=== PATIENT | male | born 1950 | race Caucasian/White ===

== ENCOUNTER 2018-01-28 14:34 | Inpatient (IN) | payer MEDICARE, SELFPAY ==
[2018-01-28] VITALS (20 sets, daily range): BP systolic 135–163; BP diastolic 48–112; PULSE 70–90; RESP 12–60; TEMP 36.6–37; O2SAT 90–100; BMI 34.0; BMI 32.2; BMI 32.3
--- NOTE | 2018-01-28 14:57 | EKG12_ITS ---
Test Reason : SOB Blood Pressure : / mmHG Vent. Rate : 092 BPM Atrial Rate : 092 BPM P-R Int : 216 ms QRS Dur : 098 ms QT Int : 360 ms P-R-T Axes : 035 080 020 degrees QTc Int : 445 ms Sinus rhythm with 1st degree A-V block with occasional Premature ventricular complexes Otherwise normal ECG Confirmed by VIKY MONTENEGRO, JOS ([id number]), editor book SHIRA HURD ([id number]) on 01/31/2018 2:25:31 PM Referred By: Confirmed By:JOS SALMON MD
--- NOTE | 2018-01-28 15:02 | RAD_ITS ---
STUDY: X-RAY CHEST REASON FOR EXAM: Male, 67 years old. Respiratory failure TECHNIQUE: Single x 2 AP portable view of the chest. The right part of the chest is partially out of the field of view. COMPARISON: December 29, 2010 FINDINGS: Since prior, there is partial visualization of blunting of the right costophrenic angle. The right costophrenic angle is partially out of the field of view. 01/28/2018 pattern of increased interstitial markings blunting of the costophrenic angles. Sternal cerclage wires are present from a prior sternotomy. Normal mediastinum and justyn. Normal visualized pulmonary arteries. There is atherosclerotic calcification of the aortic arch with tortuosity. There are diffuse degenerative changes of the visualized thoracic spine. Normal visualized ribs, clavicles, and shoulders. There is no demonstrated abnormality of the visualized soft tissue structures of the upper abdomen. RAD/Chest 1 View (Portable) IMPRESSION: Limited study. Findings suspicious for pulmonary edema bilateral effusions. Recommend repeating the study with improved technique when appropriate. Electronically Signed: Stephanie Martínez MD at 16:40 EDT Tel , Service support ,
[2018-01-28] MEDS: MethylPREDNISolone 125 MG/2 ML Vial IV (15:13)
[2018-01-28 15:21] LABS: Absolute Lymphocyte Count 4.16 X10^3/ul (0.83-4.51); Basophil# 0.01 X10^3/uL; Differential Indicated SCAN CRITERIA MET; Eosinophil# 0.16 X10^3/uL; Eosinophils% 0.6 % (0-5); Hematocrit 31.5 % (40-54); Hemoglobin 9.1 g/dl (13.0-16.5); Lymphocyte # 4.16 X10^3/ul (4.0); Lymphocyte % 14.3 % (19-41); Mean Corp Hgb Conc 28.9 g/gl (32-36); Mean Corpuscular Hgb 25.1 pg (27.0-32.0); Mean Platelet Vol. 10.4 fl (6.2-12.0); Monocyte# 3.61 X10^3/uL; Monocyte% 12.4 % (0-10); Neutrophil # 21.01 X10^3/uL (2.7-7.7); Neutrophil % 72.3 % (47-70); POSITIVE COUNT NO; POSITIVE DIFFERENTIAL YES; POSITIVE MORPHOLOGY YES; Platelet Count 253 K/mm3 (150-450); RBC Distribution Width CV 22.7 % (11.6-14.6); RBC Distribution Width SD 67.5 fl (35.1-43.9); Red Blood Count 3.62 M/mm3 (4.6-6.2); White Blood Count 29.1 K/mm3 (4.4-11.0)
[2018-01-28 15:23] LABS: Partial Thromboplast Time 21.3 Seconds (24.1-36.2); Prothrombin Time (Protime)PT. 12.7 SECONDS (11.7-14.9)
[2018-01-28] MEDS: Albuterol 2.5 MG/3 ML VIAL.NEB. INHALATION ×3 (15:25)
[2018-01-28] MEDS: Ipratropium/Albuterol Sulfate 3 ML AMPUL.NEB INHALATION ×3 (15:25→22:54)
[2018-01-28 15:39] LABS: AST(SGOT) 30 U/L (15-37); Alanine Aminotransfer ALT/SGPT 47 U/L (16-61); Albumin, Serum 3.4 g/dL (3.2-5.0); Alkaline Phosphatase 74 U/L (45-117); Anion Gap 9 (5-15); BUN 78 mg/dL (7-18); BUN/Creat Ratio 28.2 RATIO (10-20); Calcium,Total 8.4 mg/dL (8.5-10.1); Chloride 101 mmol/L (98-107); Creatinine, Serum 2.77 mg/dL (0.70-1.30); EST Glomerular Filtration Rate 25 mL/min (>60); Est Glom Filt Rate - Afr Amer 30 mL/min (>60); Estimated Creatinine Clearance 24.53 ml/min; Globulin 3.5 g/dL (2.2-4.2); Glucose 231 mg/dL (74-106); Potassium 4.2 mmol/L (3.5-5.1); Protein, Total 6.9 g/dL (6.4-8.2); Sodium Level 136 mmol/L (136-145)
[2018-01-28] MEDS: Furosemide 40 MG/4 ML Vial IV (15:43)
[2018-01-28 15:44] LABS: Lactic Acid 2.5 mmol/L (0.4-2.0)
[2018-01-28] MEDS: Nitroglycerin Infusion 250 ML 3 MG IV (15:54)
[2018-01-28 16:01] LABS: Allen Test NEG; Base Excess 3 mmol/L (-2 to +2); Bicarbonate 27.7 mmol/L (22-26); Blood Gas Specimen Type ART; EPAP 8; FI02 50; IPAP 12; PO2 151 mmHG (75-100); RR 14; SITE R Radial; SO2 99 % (95-99); Time Given 1554; Total Carbon Dioxide 29 mmol/L; pH 7.43 (7.35-7.45)
--- NOTE | 2018-01-28 16:16 | ED.DCSUM_ITS ---
- ER Visit Summary Date of Service: 01/28/18 Chief Complaint: Shortness of breath History of Present Illness: The patient is a 67 M who presents with prompt onset of shortness of breath of several hours prior to presentation. He states he cannot breathe. He has never been this bad. He nods to history of COPD, congestive heart failure, hypertension and high cholesterol. He acknowledges he has history of coronary disease status post bypass surgery. He denies any chest pain. He denies increased swelling of his legs. He denies increased orthopnea and denies PND. He does report a cough. He denies fever, chills night sweats. He denies any visual, ocular auditory symptoms. He denies abdominal pain, nausea, vomiting or diarrhea. He denies dysuria, frequency, urgency or hematuria. He denies myalgias arthralgias or back pain. He denies rash or abscess. He denies headache or generalized weakness. History he denies polyuria, polydipsia or polyphagia. He denies bruising easily. Denies angioedema or urticaria. Patient's history is limited to the fact that he is in respiratory distress in a tripod position. Physical Examination: Blood pressure 163/112, temperature 98.6, heart rate 87, respiratory 30 and pulse ox 91% on mask. Nurse protocol was initiated and he was administered a DuoNeb. Head is atraumatic nor cephalic. He has a cushingoid appearance. Unable to visualize oropharynx secondary to fact he is on a mask which he is dependent on at this time because otherwise he is hypoxic. Trachea is midline. There is no stridor. There is no cervical lymphadenopathy. Heart is regular difficult to hear heart tones or murmurs secondary to respiratory sounds. He has rhonchi and wheezing heard throughout. There is retractions. He is diaphoretic. Abdomen is prominent soft nontender with diminished bowel sounds. He has bilateral 3-4+ pitting edema of the lower extremities. Unable to palpate distal pulses secondary to the amount of edema. He has venous stasis dermatitis noted. He is alert and oriented. Neuro exam was limited secondary to acuity of his respiratory distress. Test Results: EKG interpreted by me as a sinus rhythm with first-degree AV block and PVCs. Rate 92. Chest x-ray reveals cardiomegaly and CHF on a single portable view. White count is 29.1 thousand with an H&H 9.1 and 31.5. There are 72% segs and no bands. Electrolyte panels marked for BUN and creatinine of 78 and 2.77. Coags normal. Troponin is slightly elevated 0.07 and lactate elevated 2.5. It is my opinion that the lactate is elevated secondary to his hypoxia and respiratory distress. This is not secondary to sepsis. Believe his white count is secondary to stress from his respiratory distress. Cultures were obtained, however. Emergency Department Course and Treatment: With abrupt onset shortness of breath with history of COPD and CHF need to consider pulmonary embolus, exacerbation COPD, pulmonary edema. He was placed on BiPAP and a blood gas was obtained. Blood gas revealed no acid-base disturbance. There is a significant AA gradient. In light of chest x-ray findings he was given Lasix 40 mg and placed on a nitro drip for preload reduction. Treatment Plan: PCU stepdown Disposition: Full admission Impression: 1. Respiratory failure with hypoxia 2. Pulmonary edema 3. Elevated troponin probably secondary to congestive heart failure 4. Anemia 5. Renal failure 6. Lactic acidosis This note was generated with [employer] dictation software. It may contain incorrect words, spelling, and punctuation that were not noted in review of the chart prior to signing ED Disposition - Plan for ED Patient: Chief Complaint: Shortness of Breath Referrals: Tania Berger NP-C [Primary Care Provider] -
[2018-01-28 16:35] LABS: Anisocytosis 1+; Differential Comment SCANNED
--- NOTE | 2018-01-28 16:40 | HP.PCM_ITS ---
Problem List (1) Diastolic CHF Status: Acute Qualifiers: Heart failure chronicity: acute on chronic Qualified Code(s): I50.33 - Acute on chronic diastolic (congestive) heart failure (2) HLD (hyperlipidemia) Status: Chronic (3) HTN (hypertension) Status: Chronic (4) PAD (peripheral artery disease) Status: Chronic (5) CAD (coronary artery disease) Status: Chronic (6) COPD (chronic obstructive pulmonary disease) Status: Chronic (7) Tobacco dependence Status: Chronic (8) CKD (chronic kidney disease) Status: Chronic Qualifiers: Chronic kidney disease stage: stage 3 (moderate) Qualified Code(s): N18.3 - Chronic kidney disease, stage 3 (moderate) (9) Leukocytosis Status: Chronic (10) Anemia Status: Chronic (11) Respiratory failure with hypoxia Status: Acute (12) BPH (benign prostatic hyperplasia) Status: Chronic History of Present Illness Date of Admission: 01/28/18 Chief Complaint: Shortness of breath. The patient is a 67 year old M who presents to the emergency room with shortness of breath which began rather suddenly earlier today. Patient states he has chronic shortness of breath but today felt like he was struggling to breathe. Patient states he was recently admitted 1 week ago to [facility] where he was treated for pneumonia. Patient reports increase in lower extremity edema. He states he weighs himself daily and has not noted an increase in weight. Patient notes chronic cough with clear sputum production. Denies fever, chills. Denies chest pain. at bedside states that patient has had frequent admissions over the past year and a half due to congestive heart failure and respiratory failure. Patient follows with pizza chef in [place] and we have no prior records available at this time. Patient states he believes his ejection fraction is normal. He reports history of CAD status post CABG and stents. He states his most recent stent placement was in May 2017 at [facility] in [place]. He states he has had increase in lower extremity edema following failed attempt at stent placement for PAD. He is scheduled to follow-up with hematology for leukocytosis of unclear etiology. His other past medical history includes D, tobacco dependence, hypertension, hyperlipidemia, BPH, anemia, CKD. Past Medical History Past Medical History (Chronic Problems): Chronic Problems HLD (hyperlipidemia) (Chronic) HTN (hypertension) (Chronic) PAD (peripheral artery disease) (Chronic) CAD (coronary artery disease) (Chronic) COPD (chronic obstructive pulmonary disease) (Chronic) Tobacco dependence (Chronic) CKD (chronic kidney disease) (Chronic) Leukocytosis (Chronic) Anemia (Chronic) BPH (benign prostatic hyperplasia) (Chronic) Allergies irbesartan [From Avapro] Adverse Reaction (Verified 01/28/18 14:35) Other zolpidem [From Ambien] Adverse Reaction (Verified 01/28/18 14:35) Other Home Medications: Ambulatory Orders Medication Instructions Recorded Aspirin [Aspirin, Baby] 81 mg PO DAILY@0800 01/28/18 Bumetanide 2 mg PO BID 01/28/18 Cilostazol 100 mg PO BID 01/28/18 Clopidogrel Bisulfate [Plavix] 75 mg PO DAILY 01/28/18 Diltiazem HCl [Cartia Xt] 120 mg PO DAILY 01/28/18 Magnesium Oxide [Magnesium] 400 mg PO BID 01/28/18 Metoprolol Succinate 100 mg PO BID 01/28/18 Potassium Chloride [K-Dur] 20 meq PO 5X/DAY 01/28/18 Ropinirole HCl [Requip] 1 mg PO DAILY 01/28/18 Rosuvastatin Calcium [Crestor] 40 mg PO DAILY 01/28/18 Spironolactone 25 mg PO DAILY 01/28/18 Tamsulosin HCl [Flomax] 0.4 mg PO DAILY 01/28/18 hydrALAZINE [Apresoline] 25 mg PO BID 01/28/18 Surgical History: coronary bypass surgery, tonsillectomy Psychiatric History: No pertinent psych hx Lives: Spouse/ Significant Other Smoking Status: Current every day smoker - Half pack per day Tobacco Use: Cigarettes Alcohol: Rare Drugs: None - *Family History Maternal History Items: No pertinent history Paternal History Items: No pertinent history Review of Systems Constitutional: Denies: Chills, Fever, Weight Change HEENT: Denies: Head Aches, Sinus Congestion, Sinus Drainage Cardiovascular: Reports: Edema. Denies: Chest Pain, Palpitations, Syncope Respiratory: Reports: Cough, Shortness of Breath, Sputum production - Clear, Wheezing Gastrointestinal: Denies: Abdominal Pain, Constipation, Diarrhea, Nausea, Vomiting Genitourinary: Denies: Dysuria Musculoskeletal: Denies: Joint Pain, Joint Tenderness Skin: Denies: Rash, Wounds Neurological: Denies: Numbness, Tingling, Focal weakness Psychiatric: Denies: Anxiety, Depression, Homicidal Ideations, Suicidal Ideations Hematologic/ Lymphatic: Denies: Easy Bruising, Easy Bleeding VTE Information - Inpt Only VTE Present on Admission: No VTE Mechan Device Prophylaxis: None VTE Pharm Prophylaxis ordered?: Yes Patient Problems: Active and Suspected Problems Diastolic CHF (Acute) Respiratory failure with hypoxia (Acute) - Physical Exam General: Alert, Oriented x3, - - Moderate respiratory distress HEENT: Atraumatic, PERRLA, EOMI, Normocephalic Neck: Supple, No JVD, Negative Carotid Bruits Lungs: Diminished, Rhonchi Cardiovascular: Regular rate, Regular Rhythm, Normal S1, Normal S2, No murmurs Abdomen: Bowel Sounds Present, Soft, Non Tender, Non-Distended, Obese Extremities: No clubbing, No cyanosis, Edema - +3 bilateral lower extremities Skin: No rashes, No breakdown Musculoskeletal: No Tenderness to Palpation of Joints or Extremities Neurological: Cranial nerves II-XII grossly intact, Neuro grossly intact Psych/Mental Status: Normal Affect, Appropriate Vital Signs Temp Pulse Resp BP Pulse Ox 98.6 F 79 21 H 135/50 H 98 01/28/18 14:35 01/28/18 15:58 01/28/18 15:58 01/28/18 15:58 01/28/18 15:59 Oxygen Flow Rate (L/min) 4 Oxygen Delivery Method Bi-pap Weight: 98.5 kg Body Mass Index (BMI) 34.0 Laboratory Tests Past 24 Hrs 01/28/18 01/28/18 01/28/18 14:51 14:51 14:51 WBC 29.1 H RBC 3.62 L Hgb 9.1 L Hct 31.5 L MCV 87.0 MCH 25.1 L MCHC 28.9 L RDW 22.7 H RDW Differential 67.5 H Plt Count 253 MPV 10.4 Immature Gran % (Auto) 0.400 Neut % (Auto) 72.3 H Lymph % (Auto) 14.3 L [place] % (Auto) 12.4 H Eos % (Auto) 0.6 Baso % (Auto) 0.0 Absolute Neuts (auto) 21.0 H Absolute Lymphs (auto) 4.16 Total Counted Pending PT 12.7 INR 1.0 APTT 21.3 L Specimen Type Sample Site pH Bicarbonate Actual POC Total CO2 Base Excess O2 Saturation O2 % ABG pCO2 ABG pO2 Clay Test Respiration Rate O2 Delivery Device EPAP IPAP Blood Gas Notified Whom Blood Gas Notified Time Sodium 136 Potassium 4.2 Chloride 101 Carbon Dioxide 26.0 Anion Gap 9 BUN 78 H Creatinine 2.77 H Estim Creat Clear Calc 24.53 Est GFR (MDRD) Af Amer 30 L Est GFR (MDRD) Non-Af 25 L BUN/Creatinine Ratio 28.2 H Glucose 231 H Lactic Acid Calcium 8.4 L Total Bilirubin 0.50 AST 30 ALT 47 Alkaline Phosphatase 74 Troponin I 0.07 H Total Protein 6.9 Albumin 3.4 Globulin 3.5 Albumin/Globulin Ratio 1.0 01/28/18 01/28/18 14:51 15:54 WBC RBC Hgb Hct MCV MCH MCHC RDW RDW Differential Plt Count MPV Immature Gran % (Auto) Neut % (Auto) Lymph % (Auto) [place] % (Auto) Eos % (Auto) Baso % (Auto) Absolute Neuts (auto) Absolute Lymphs (auto) Total Counted PT INR APTT Specimen Type ART Sample Site R Radial pH 7.43 Bicarbonate Actual 27.7 H POC Total CO2 29 Base Excess 3 H O2 Saturation 99 O2 % 50 ABG pCO2 42.0 ABG pO2 151 H Clay Test NEG Respiration Rate 14 O2 Delivery Device Bi / C PAP EPAP 8 IPAP 12 Blood Gas Notified Whom ED MD Blood Gas Notified Time 1554 Sodium Potassium Chloride Carbon Dioxide Anion Gap BUN Creatinine Estim Creat Clear Calc Est GFR (MDRD) Af Amer Est GFR (MDRD) Non-Af BUN/Creatinine Ratio Glucose Lactic Acid 2.5 H Calcium Total Bilirubin AST ALT Alkaline Phosphatase Troponin I Total Protein Albumin Globulin Albumin/Globulin Ratio Assessment/Plan Active and Suspected Problems Diastolic CHF (Acute) Respiratory failure with hypoxia (Acute) 1. Acute hypoxic respiratory failure secondary to acute on chronic diastolic CHF-chest x-ray on admission consistent with CHF. Patient currently on BiPAP FiO2 40%. Patient received IV Lasix in ER and was started on nitro drip. Continue nitro gtt. IV lasix 60mg Q8hr. Strict I&O. Daily weight. Obtain records from outside facility. If echo not completed recently, repeat. Trend enzymes. John wraps bilateral lower extremities. Continue supplemental oxygen to maintain O2 at or above 90%. Repeat chest x-ray in a.m. 2. Leukocytosis-etiology unclear. Infectious etiology not suspected. Per patient this is somewhat chronic in nature and patient is to follow-up with radiologic electronic specialist. 3. Normocytic hypochromic anemia-patient reports recent blood transfusion, iron transfusion and erythropoietin injection during recent admission to [facility]. Monitor CBC. Obtain records to see if iron studies have been completed. 4. Indeterminate troponin-EKG without evidence of ischemia. Troponin 0.07. Trend enzymes. Suspect secondary to #1. 5. Lactic acidosis-lactic acid on admission 2.5. Do not suspect related to infection/sepsis. Repeat lactic acid. Suspect secondary to #1. 6. Chronic kidney disease, suspected stage IV-creatinine 2.7 on admission. Unknown what patient's baseline is. Trend BMP. Patient is following with nephrology as outpatient. 7. CAD-status post CABG/PCI. Most recent stents placed May 2017. Continue aspirin, statin, Plavix, beta-lesa. 8. Chronic COPD- no not suspect acute exacerbation. No audible wheezing noted on examination. Albuterol and DuoNeb aerosols. 9. PAD-status post attempted intervention which was unable to be performed per . Continue aspirin, statin, Plavix. 10. Hyperlipidemia-continue statin. 11. Hypertension-stable, continue home regimen including Cardizem, hydralazine, metoprolol. 12. Tobacco dependence-current half pack per day smoker. Encourage smoking cessation. Nicotine replacement patch if desired. 13. BPH-continue home Flomax regimen. DVT prophylaxis-heparin subcu. This patient was seen by SEUN Obregon under the supervision of Dr. Workman.
[2018-01-28 19:12] LABS: Reflex Lactate? Y
[2018-01-28 21:06] LABS: Lactic Acid 0.8 mmol/L (0.4-2.0)
[2018-01-28] MEDS: Furosemide 100 MG/10 ML Vial 60 MG IV (21:52)
[2018-01-28] MEDS: hydrALAZINE 25 MG Tablet PO (21:52)
[2018-01-28] MEDS: Metoprolol(XL)Succ 100 MG Tablet PO (21:52)
[2018-01-28] MEDS: Pramipexole Di-HCl 0.5 MG Tablet PO (21:52)
[2018-01-28] MEDS: Atorvastatin Calcium 80 MG Tablet PO (21:52)
[2018-01-28] MEDS: Heparin Injection (Vial) 5,000 UNIT/ML VIAL 5000 UNIT SC (21:52)
[2018-01-28] MEDS: Magnesium Oxide 400 MG Tablet PO (21:53)
[2018-01-29] VITALS (34 sets, daily range): BP systolic 122–154; BP diastolic 43–65; PULSE 65–95; RESP 12–21; TEMP 36.7–37.5; O2SAT 94–100
[2018-01-29] MEDS: Ipratropium/Albuterol Sulfate 3 ML AMPUL.NEB INHALATION ×6 (02:45→23:15)
[2018-01-29] MEDS: Heparin Injection (Vial) 5,000 UNIT/ML VIAL 5000 UNIT SC ×2 (05:16→14:18)
[2018-01-29] MEDS: Furosemide 100 MG/10 ML Vial 60 MG IV ×3 (05:16→22:06)
--- NOTE | 2018-01-29 05:55 | RAD_ITS ---
STUDY: X-RAY CHEST REASON FOR EXAM: Male, 67 years old. Cough TECHNIQUE: Single AP portable view of the chest. COMPARISON: January 28, 2018 chest x-ray FINDINGS: There is a hazy appearance on the bilateral lower lobes. There is blunting of the costophrenic angle. There are lesser overall thickened interstitial markings. There is no demonstrated pleural abnormality. Sternal cerclage wires are present from a prior sternotomy. Normal mediastinum and justyn. Normal visualized pulmonary arteries. Normal visualized aortic arch and descending thoracic aorta. There are diffuse degenerative changes of the visualized thoracic spine. Normal visualized ribs, clavicles, and shoulders. There is no demonstrated abnormality of the visualized soft tissue structures of the upper abdomen. RAD/Chest 1 View (Portable) IMPRESSION: Interval improvement in the interstitial edema. Findings suspicious for persistent layering effusions. There is right lower lobe atelectasis and a potential small infiltrate. Mild cardiomegaly. Electronically Signed: Stephanie Martínez MD at 8:36 EDT Tel , Service support ,
[2018-01-29 06:39] LABS: Hemoglobin 7.8 g/dl (13.0-16.5); Mean Corpuscular Hgb 26.1 pg (27.0-32.0); Mean Platelet Vol. 11.3 fl (6.2-12.0); Platelet Count 176 K/mm3 (150-450); RBC Distribution Width CV 21.9 % (11.6-14.6); RBC Distribution Width SD 65.1 fl (35.1-43.9); Red Blood Count 2.99 M/mm3 (4.6-6.2); White Blood Count 7.3 K/mm3 (4.4-11.0)
[2018-01-29 06:41] LABS: Scan Indicated on CBC? Y/N YES- FLAGS NOTED
[2018-01-29 07:10] LABS: Differential Comment SCAN
[2018-01-29 08:08] LABS: Anion Gap 12 (5-15); BUN 75 mg/dL (7-18); BUN/Creat Ratio 32.9 RATIO (10-20); Calcium,Total 8.2 mg/dL (8.5-10.1); Chloride 99 mmol/L (98-107); Creatinine, Serum 2.28 mg/dL (0.70-1.30); EST Glomerular Filtration Rate 31 mL/min (>60); Est Glom Filt Rate - Afr Amer 37 mL/min (>60); Glucose 365 mg/dL (74-106); Magnesium 2.8 mg/dL (1.6-2.6); Potassium 2.6 mmol/L (3.5-5.1); Sodium Level 138 mmol/L (136-145)
[2018-01-29] MEDS: Aspirin 81 MG TAB.CHEW PO (08:32)
[2018-01-29] MEDS: Spironolactone 25 MG Tablet PO (09:08)
[2018-01-29] MEDS: hydrALAZINE 25 MG Tablet PO ×2 (09:08→22:07)
[2018-01-29] MEDS: Clopidogrel Bisulfate 75 MG Tablet PO (09:08)
[2018-01-29] MEDS: Metoprolol(XL)Succ 100 MG Tablet PO ×2 (09:09→22:07)
[2018-01-29] MEDS: Tamsulosin HCl 0.4 MG Capsule PO (09:09)
[2018-01-29] MEDS: dilTIAZem CD 120 MG Capsule PO (09:10)
--- NOTE | 2018-01-29 11:58 | PN_ITS ---
Patient Problems: Active and Suspected Problems Diastolic CHF (Acute) Respiratory failure with hypoxia (Acute) Subjective: Patient seen and examined. Shortness of breath significantly improved. Wear BiPAP intermittently throughout the night but states he did not feel he needed it. He is down about 7 kg since admission. Patient not happy with fluid restriction and cardiac diet. Explained to patient the importance of fluid restriction and sodium restriction. Denies other complaints. - Physical Exam General: Alert, Oriented x3, Cooperative, No apparent distress HEENT: Atraumatic, PERRLA, EOMI, Normocephalic Neck: Supple, No JVD, Negative Carotid Bruits Lungs: Clear to auscultation, Diminished Cardiovascular: Regular rate, Regular Rhythm, Normal S1, Normal S2, No murmurs Abdomen: Bowel Sounds Present, Soft, Non Tender, Non-Distended Extremities: No clubbing, No cyanosis, Edema - +2 BLLE Skin: No rashes, No breakdown Musculoskeletal: No Tenderness to Palpation of Joints or Extremities Neurological: Cranial nerves II-XII grossly intact, Neuro grossly intact Psych/Mental Status: Normal Affect, Appropriate Vital Signs Temp Pulse Resp BP Pulse Ox 98.3 F 73 16 122/51 H 97 01/29/18 09:00 01/29/18 11:17 01/29/18 11:17 01/29/18 11:00 01/29/18 11:00 Oxygen Flow Rate (L/min) 1 Oxygen Delivery Method Nasal Cannula Weight: 91.2 kg Body Mass Index (BMI) 32.2 Intake and Output for Last 24 Hours 01/27/18 01/28/18 01/29/18 23:59 23:59 23:59 Intake Total 725 / 725 Output Total 500 / 500 4160 / 4160 Balance -500 / -500 -3435 / -3435 Laboratory Tests Past 24 Hrs 01/28/18 01/28/18 01/28/18 19:00 20:25 22:55 WBC RBC Hgb Hct MCV MCH MCHC RDW RDW Differential Plt Count MPV Differential Comment Sodium Potassium Chloride Carbon Dioxide Anion Gap BUN Creatinine Estim Creat Clear Calc Est GFR (MDRD) Af Amer Est GFR (MDRD) Non-Af BUN/Creatinine Ratio Glucose Lactic Acid 0.8 Calcium Magnesium Troponin I 0.09 H 0.08 H 04/15/18 04/15/18 04/15/18 05:20 05:20 05:20 WBC 7.3 RBC 2.99 L Hgb 7.8 L Hct 26.0 L MCV 87.0 MCH 26.1 L MCHC 30.0 L RDW 21.9 H RDW Differential 65.1 H Plt Count 176 MPV 11.3 Differential Comment SCAN Sodium 138 Potassium 2.6 L* Chloride 99 Carbon Dioxide 27.0 Anion Gap 12 BUN 75 H Creatinine 2.28 H Estim Creat Clear Calc 29.80 Est GFR (MDRD) Af Amer 37 L Est GFR (MDRD) Non-Af 31 L BUN/Creatinine Ratio 32.9 H Glucose 365 H Lactic Acid Calcium 8.2 L Magnesium 2.8 H Troponin I 0.05 Medical Necessity - Tobacco Use Smoking Status: Current every day smoker Tobacco Use: Cigarettes Assessment/Plan Active and Suspected Problems Diastolic CHF (Acute) Respiratory failure with hypoxia (Acute) 1. Acute hypoxic respiratory failure secondary to acute on chronic diastolic CHF-chest x-ray on admission consistent with CHF. Patient required BiPAP on admission. Now stable on nasal cannula. Continue IV Lasix. Strict I&O. Daily weight. Obtain records from outside facility. If echo not completed recently, repeat tomorrow. John wraps bilateral lower extremities. Continue supplemental oxygen to maintain O2 at or above 90%. Patient will need walking pulse ox prior to discharge. Repeat chest x-ray shows interval improvement in interstitial edema. Findings suspicious for persistent layering effusions. Right lower lobe atelectasis and potential small infiltrate. 2. Leukocytosis-etiology unclear. Infectious etiology not suspected. Per patient this is somewhat chronic in nature and patient is to follow-up with laborer pipeline. WBC repeated this morning and now within normal limits. Possibly reactive? 3. Normocytic hypochromic anemia-patient reports recent blood transfusion, iron transfusion and erythropoietin injection during recent admission to [facility]. Hemoglobin now 7.8. Complete iron studies. Monitor CBC. Transfuse if less than 7. 4. Indeterminate troponin-EKG without evidence of ischemia. Troponin 0.07. Trend enzymes. Suspect secondary to #1. 5. Lactic acidosis-lactic acid on admission 2.5. Do not suspect related to infection/sepsis. Repeat lactic acid 0.8. Suspect secondary to #1. 6. Hypokalemia-replaced IV and orally. Trend BMP. 7. Chronic kidney disease, suspected stage IV-creatinine 2.7 on admission. Unknown what patient's baseline is. Trend BMP. Patient is following with nephrology as outpatient. 8. CAD-status post CABG/PCI. Most recent stents placed May 2017. Continue aspirin, statin, Plavix, beta-lesa. 9. Chronic COPD- no not suspect acute exacerbation. No audible wheezing noted on examination. Albuterol and DuoNeb aerosols. 10. PAD-status post attempted intervention which was unable to be performed per . Continue aspirin, statin, Plavix. 11. Hyperlipidemia-continue statin. 12. Hypertension-stable, continue home regimen including Cardizem, hydralazine, metoprolol. 13. Tobacco dependence-current half pack per day smoker. Encourage smoking cessation. Nicotine replacement patch if desired. 14. BPH-continue home Flomax regimen. DVT prophylaxis-heparin subcu. This patient was seen by SEUN Obregon under the supervision of Dr. Workman.
[2018-01-29 13:24] LABS: Ferritin 89 ng/mL (26-388); Iron 15 ug/dL (65-175); Iron Binding Capacity,Total 353 ug/dL (250-450); PERCENT IRON SATURATION 4.2 % (15.0-55.0)
[2018-01-29] MEDS: Ferrous Sulfate 325 MG Tablet PO (15:24)
[2018-01-29] MEDS: 0.9% NaCl Peripheral Flush Adult/Peds IV (22:06)
[2018-01-29] MEDS: Magnesium Oxide 400 MG Tablet PO (22:07)
[2018-01-29] MEDS: Atorvastatin Calcium 80 MG Tablet PO (22:07)
[2018-01-29] MEDS: Pramipexole Di-HCl 0.5 MG Tablet PO (22:08)
[2018-01-30] VITALS (12 sets, daily range): BP systolic 145–151; BP diastolic 53–69; PULSE 64–80; RESP 12–21; TEMP 36.5–36.9; O2SAT 93–100
[2018-01-30] MEDS: Ipratropium/Albuterol Sulfate 3 ML AMPUL.NEB INHALATION ×3 (03:24→11:19)
--- NOTE | 2018-01-30 03:30 | CPS ---
decreased o2 to 35%
[2018-01-30] MEDS: Heparin Injection (Vial) 5,000 UNIT/ML VIAL 5000 UNIT SC (05:24)
[2018-01-30] MEDS: 0.9% NaCl Peripheral Flush Adult/Peds IV (05:24)
[2018-01-30] MEDS: Furosemide 100 MG/10 ML Vial 60 MG IV (05:24)
[2018-01-30 06:32] LABS: Anion Gap 6 (5-15); BUN 58 mg/dL (7-18); BUN/Creat Ratio 35.8 RATIO (10-20); Calcium,Total 8.8 mg/dL (8.5-10.1); Chloride 99 mmol/L (98-107); Creatinine, Serum 1.62 mg/dL (0.70-1.30); EST Glomerular Filtration Rate 46 mL/min (>60); Est Glom Filt Rate - Afr Amer 55 mL/min (>60); Estimated Creatinine Clearance 41.94 ml/min; Glucose 144 mg/dL (74-106); Potassium 3.1 mmol/L (3.5-5.1); Sodium Level 139 mmol/L (136-145)
[2018-01-30 07:02] LABS: Hematocrit 28.9 % (40-54); Hemoglobin 8.4 g/dl (13.0-16.5); Mean Corp Hgb Conc 29.1 g/gl (32-36); Mean Corpuscular Hgb 25.7 pg (27.0-32.0); Mean Corpuscular Volume 88.4 fL (80-94); Mean Platelet Vol. 10.2 fl (6.2-12.0); Platelet Count 187 K/mm3 (150-450); RBC Distribution Width CV 22.1 % (11.6-14.6); RBC Distribution Width SD 65.5 fl (35.1-43.9); Red Blood Count 3.27 M/mm3 (4.6-6.2); White Blood Count 11.4 K/mm3 (4.4-11.0)
[2018-01-30 07:03] LABS: Scan Indicated on CBC? Y/N YES- FLAGS NOTED
[2018-01-30] MEDS: Ferrous Sulfate 325 MG Tablet PO (07:56)
[2018-01-30] MEDS: Aspirin 81 MG TAB.CHEW PO (07:56)
--- NOTE | 2018-01-30 08:16 | RAD_ITS ---
STUDY: X-RAY CHEST REASON FOR EXAM: Male, 67 years old. CHF. TECHNIQUE: PA and lateral views of the chest. COMPARISON: Comparison is made with prior study dated January 29, 2018. FINDINGS: EKG electrodes are seen. Stable appearance of the vascular congestion mild degree of CHF. Increased atelectasis and or infiltrate at the lung bases worse on the right side. Small bilateral pleural effusions slightly worse on the right side. Sternal cerclage wires and vascular clips are present from a prior sternotomy and coronary artery bypass graft procedure (CABG). Normal mediastinum and justyn. Normal visualized pulmonary arteries. There is atherosclerotic calcification of the aortic arch with tortuosity. There are diffuse degenerative changes of the visualized thoracic spine. Normal visualized ribs, clavicles, and shoulders. There is no demonstrated abnormality of the visualized soft tissue structures of the upper abdomen. RAD/Chest PA and Lateral IMPRESSION: Stable appearance of CHF. Progressive bibasilar atelectasis and/or infiltrate worse on the right side. Electronically Signed: Deven Hensley MD at 9:23 EDT Tel [phone], Service support ,
[2018-01-30] MEDS: Metoprolol(XL)Succ 100 MG Tablet PO (09:00)
[2018-01-30] MEDS: Clopidogrel Bisulfate 75 MG Tablet PO (09:00)
[2018-01-30] MEDS: Spironolactone 25 MG Tablet PO (09:00)
[2018-01-30] MEDS: Tamsulosin HCl 0.4 MG Capsule PO (09:00)
[2018-01-30] MEDS: Magnesium Oxide 400 MG Tablet PO (09:01)
[2018-01-30] MEDS: dilTIAZem CD 120 MG Capsule PO (09:01)
[2018-01-30] MEDS: hydrALAZINE 25 MG Tablet PO (09:01)
[2018-01-30 10:27] LABS: Pathologist Review Reviewed
--- NOTE | 2018-01-30 11:30 | CASEMGMT ---
Face to Face with patient for initial transition planning/care coordination assessment. RAYMOND SPENCER introduced self and role at [facility], pt voices understanding and consents to assessment at this time. Pt is sitting up in bed in no distress at this time. Pt is A/O x4 at this time and answers all questions appropriately at this time. Care providers, pharmacy, and demographics verified. See attached link. Pt voices no further concerns/needs at this time. Advised pt to ask for CM if any further questions/concerns/needs arise, voices understanding. Pt provided with physician directory for [facility] and also with list of physicians for [place] as pt states that he is looking for some new doctors. PLAN: [place] RAYMOND SPENCER
--- NOTE | 2018-01-30 14:12 | PCM.DC ---
- Discharge Diagnoses Current Active Problems: Current Active and Chronic Problems Diastolic CHF (Acute) HLD (hyperlipidemia) (Chronic) HTN (hypertension) (Chronic) PAD (peripheral artery disease) (Chronic) CAD (coronary artery disease) (Chronic) COPD (chronic obstructive pulmonary disease) (Chronic) Tobacco dependence (Chronic) CKD (chronic kidney disease) (Chronic) Leukocytosis (Chronic) Anemia (Chronic) Respiratory failure with hypoxia (Acute) BPH (benign prostatic hyperplasia) (Chronic) You will use the following diet at home:: Cardiac, Fluid restricted (specify 2000 mls, 1500 mls) - 1500, Other - Low sodium Discharge Activity: Return to Normal Activity Call your doctor if you observe: Shortness of breath, Dizziness, Fainting spells, Chest pain, Increased palpitations (irregular heartbeat) Allergies/Adverse Reactions: Allergies irbesartan [From Avapro] Adverse Reaction (Verified 01/28/18 14:35) Other zolpidem [From Ambien] Adverse Reaction (Verified 01/28/18 14:35) Other Medications to take at Discharge Aspirin [Aspirin, Baby] 81 mg PO DAILY@0800 01/28/18 Bumetanide 2 mg PO BID 01/28/18 Clopidogrel Bisulfate [Plavix] 75 mg PO DAILY 01/28/18 Diltiazem HCl [Cartia Xt] 120 mg PO DAILY 01/28/18 Magnesium Oxide [Magnesium] 400 mg PO BID 01/28/18 Metoprolol Succinate 100 mg PO BID 01/28/18 Ropinirole HCl [Requip] 1 mg PO DAILY 01/28/18 Rosuvastatin Calcium [Crestor] 40 mg PO DAILY 01/28/18 Spironolactone 25 mg PO DAILY 01/28/18 Tamsulosin HCl [Flomax] 0.4 mg PO DAILY 01/28/18 hydrALAZINE [Apresoline] 50 mg PO TID 01/28/18 Ferrous Sulfate 325 mg PO BIDCM #60 tab 01/30/18 Ipratropium/Albuterol Sulfate [Duoneb] 3 ml INHALATION Q4H.RT #120 ampul.neb 01/30/18 Potassium Chloride [K-Dur] 40 meq PO BIDCM #120 tab 01/30/18 The following prescriptions were given: Ipratropium/Albuterol Sulfate [Duoneb] 3 ml INHALATION Q4H.RT #120 ampul.neb Ferrous Sulfate 325 mg PO BIDCM #60 tab Potassium Chloride [K-Dur] 40 meq PO BIDCM #120 tab Primary Care Physician: Tania Berger, MABLEC [Primary Care Provider] - Please follow up with your Primary Care Physician in: 1 Week Please Follow Up With: Dr. Mcgarry - Kidney Doctor When: As scheduled, 02/24/18 @3:30PM Please Follow Up With: Dr. Velasquez - Hematology When: Call for appointment Please Follow Up With: Dr. Sandra - Cardiology When: 1-2 Weeks Proposed Discharge Date: 01/30/18
--- NOTE | 2018-01-30 14:16 | DCINST_ITS ---
- Discharge Diagnoses Current Active Problems: Current Active and Chronic Problems Diastolic CHF (Acute) HLD (hyperlipidemia) (Chronic) HTN (hypertension) (Chronic) PAD (peripheral artery disease) (Chronic) CAD (coronary artery disease) (Chronic) COPD (chronic obstructive pulmonary disease) (Chronic) Tobacco dependence (Chronic) CKD (chronic kidney disease) (Chronic) Leukocytosis (Chronic) Anemia (Chronic) Respiratory failure with hypoxia (Acute) BPH (benign prostatic hyperplasia) (Chronic) You will use the following diet at home:: Cardiac, Fluid restricted (specify 2000 mls, 1500 mls) - 1500, Other - Low sodium Discharge Activity: Return to Normal Activity Call your doctor if you observe: Shortness of breath, Dizziness, Fainting spells , Chest pain, Increased palpitations (irregular heartbeat) Allergies/Adverse Reactions: Allergies irbesartan [From Avapro] Adverse Reaction (Verified 01/28/18 14:35) Other zolpidem [From Ambien] Adverse Reaction (Verified 01/28/18 14:35) Other Medications to take at Discharge Aspirin [Aspirin, Baby] 81 mg PO DAILY@0800 01/28/18 Bumetanide 2 mg PO BID 01/28/18 Clopidogrel Bisulfate [Plavix] 75 mg PO DAILY 01/28/18 Diltiazem HCl [Cartia Xt] 120 mg PO DAILY 01/28/18 Magnesium Oxide [Magnesium] 400 mg PO BID 01/28/18 Metoprolol Succinate 100 mg PO BID 01/28/18 Ropinirole HCl [Requip] 1 mg PO DAILY 01/28/18 Rosuvastatin Calcium [Crestor] 40 mg PO DAILY 01/28/18 Spironolactone 25 mg PO DAILY 01/28/18 Tamsulosin HCl [Flomax] 0.4 mg PO DAILY 01/28/18 hydrALAZINE [Apresoline] 50 mg PO TID 01/28/18 Ferrous Sulfate 325 mg PO BIDCM #60 tab 01/30/18 Ipratropium/Albuterol Sulfate [Duoneb] 3 ml INHALATION Q4H.RT #120 ampul.neb Potassium Chloride [K-Dur] 40 meq PO BIDCM #120 tab 01/30/18 The following prescriptions were given: Ipratropium/Albuterol Sulfate [Duoneb] 3 ml INHALATION Q4H.RT #120 ampul.neb Ferrous Sulfate 325 mg PO BIDCM #60 tab Potassium Chloride [K-Dur] 40 meq PO BIDCM #120 tab Primary Care Physician: Tania Berger, MABLEC [Primary Care Provider] - Please follow up with your Primary Care Physician in: 1 Week Please Follow Up With: Dr. Mcgarry - Kidney Doctor When: As scheduled, 02/24/18 @3:30PM Please Follow Up With: Dr. Velasquez - Hematology When: Call for appointment Please Follow Up With: Dr. Sandra - Cardiology When: 1-2 Weeks Proposed Discharge Date: 01/30/18
--- NOTE | 2018-01-30 14:23 | PCM.DC.SUM ---
<Haven Carlson - Last Filed: 01/30/18 14:40> Discharge Date and Diagnosis Date of Admission: 01/28/18 Date of Discharge: 01/30/18 - Primary Discharge Diagnosis Active and Suspected Problems 1. Acute hypoxic respiratory failure secondary to acute on chronic diastolic CHF 2. Leukocytosis-resolved. Suspect reactive. Infectious etiology ruled out. 3. Iron deficiency anemia 4. Indeterminate troponin 5. Hypokalemia 6. Lactic acidosis-resolved. - Secondary Discharge Diagnosis Chronic Problems HLD (hyperlipidemia) (Chronic) HTN (hypertension) (Chronic) PAD (peripheral artery disease) (Chronic) CAD (coronary artery disease) (Chronic) COPD (chronic obstructive pulmonary disease) (Chronic) Tobacco dependence (Chronic) CKD (chronic kidney disease) (Chronic) Leukocytosis (Chronic) Anemia (Chronic) BPH (benign prostatic hyperplasia) (Chronic) Hospital Course and Treatment Imaging Results: Diagnostic Data Chest X-Ray 01/30/18 08:16 IMPRESSION: Stable appearance of CHF. Progressive bibasilar atelectasis and/or infiltrate worse on the right side. Electronically Signed: Deven Hensley MD at 9:23 EDT Tel [phone], Service support , Operations: None Procedures: None Summary of Care Provided: Patient is a 67-year-old male admitted 01/28/18 due to shortness of breath. His past medical history includes CAD status post CABG/PCI, tobacco dependence, hypertension, hyperlipidemia, BPH, iron deficiency anemia, CKD, alcohol abuse. 1. Acute hypoxic respiratory failure secondary to acute on chronic diastolic CHF-chest x-ray on admission consistent with CHF. Patient required BiPAP on admission. Now stable on room air. Patient received IV Lasix during admission and will be discharged on home Bumex regimen of 2 mg twice daily. Walking pulse ox completed and oxygen remained 96% with ambulation. Repeat chest x-ray showed stable appearance of CHF. Patient educated on fluid and sodium restriction. He will continue outpatient follow-up with his brand ambassador, Dr. Sandra. Patient states he had recent echo at outside facility with reported normal ejection fraction. Records requested but were not able to be obtained. Patient will continue close follow up with brand ambassador. 2. Leukocytosis-resolved. Infectious etiology ruled out. Suspect reactive secondary to #1. 3. Iron deficiency anemia-patient reports recent blood transfusion, iron transfusion and erythropoietin injection during recent admission to [facility]. Iron studies completed and confirm iron deficiency anemia. Patient was given to IV iron transfusions. Hemoglobin stable, 8.4. Continue outpatient follow-up with hematology. 4. Indeterminate troponin-EKG without evidence of ischemia. Troponin 0.07, 0.09, 0.08, 0.05. Suspect secondary to #1. Denies chest pain. 5. Lactic acidosis-lactic acid on admission 2.5. Do not suspect related to infection/sepsis. Repeat lactic acid 0.8. Suspect secondary to #1. 6. Hypokalemia-replaced IV and orally. BMP in 3 days at discharge. Followed by primary care physician. 7. Chronic kidney disease, suspected stage IV-creatinine 2.7 on admission. Unknown what patient's baseline is. Creatinine improved to 1.6. Patient will continue outpatient follow-up with nephrology as scheduled. 8. CAD-status post CABG/PCI. Most recent stents placed May 2017. Continue aspirin, statin, Plavix, beta-lesa. 9. Chronic COPD- no not suspect acute exacerbation. No audible wheezing noted on examination. 10. PAD-status post attempted intervention which was unable to be performed per . Continue aspirin, statin, Plavix. Home Pletal regimen discontinued due to known exacerbating of CHF. 11. Hyperlipidemia-continue statin. 12. Hypertension-stable, continue home regimen including Cardizem, hydralazine, metoprolol. 13. Tobacco dependence-current half pack per day smoker. Encourage smoking cessation. 14. BPH-continue home Flomax regimen. 15. Alcohol abuse-strongly encouraged alcohol cessation. General: Alert, Oriented x3, Cooperative, No apparent distress HEENT: Atraumatic, PERRLA, EOMI, Normocephalic Neck: Supple, No JVD, Negative Carotid Bruits Lungs: Clear to auscultation, Diminished Cardiovascular: Regular rate, Regular Rhythm, Normal S1, Normal S2, No murmurs Abdomen: Bowel Sounds Present, Soft, Non Tender, Non-Distended Extremities: No clubbing, No cyanosis, Edema - +2 BLLE Skin: No rashes, No breakdown Musculoskeletal: No Tenderness to Palpation of Joints or Extremities Neurological: Cranial nerves II-XII grossly intact, Neuro grossly intact Psych/Mental Status: Normal Affect, Appropriate Patient seen and examined prior to discharge. Physical assessment as noted above. Stable for discharge home with the follow-up recommendations as noted above. This patient was seen by SEUN Obregon under the supervision of Dr. Stark. Discharge Diet: Low fat/ Low Cholesterol, 8 Cup Fluid Restriciton, 2000 mg Sodium Diet Discharge Activity: Return to Normal Activity Call your doctor if you observe: Shortness of breath, Dizziness, Fainting spells, Chest pain, Increased palpitations (irregular heartbeat) Home Medications: Medications to take at Discharge Aspirin [Aspirin, Baby] 81 mg PO DAILY@0800 01/28/18 Bumetanide 2 mg PO BID 01/28/18 Clopidogrel Bisulfate [Plavix] 75 mg PO DAILY 01/28/18 Diltiazem HCl [Cartia Xt] 120 mg PO DAILY 01/28/18 Magnesium Oxide [Magnesium] 400 mg PO BID 01/28/18 Metoprolol Succinate 100 mg PO BID 01/28/18 Ropinirole HCl [Requip] 1 mg PO DAILY 01/28/18 Rosuvastatin Calcium [Crestor] 40 mg PO DAILY 01/28/18 Spironolactone 25 mg PO DAILY 01/28/18 Tamsulosin HCl [Flomax] 0.4 mg PO DAILY 01/28/18 hydrALAZINE [Apresoline] 50 mg PO TID 01/28/18 Ferrous Sulfate 325 mg PO BIDCM #60 tab 01/30/18 Ipratropium/Albuterol Sulfate [Duoneb] 3 ml INHALATION Q4H.RT #120 ampul.neb 01/30/18 Potassium Chloride [K-Dur] 40 meq PO BIDCM #120 tab 01/30/18 Following Prescrptions Were Given to Patient: Ipratropium/Albuterol Sulfate [Duoneb] 3 ml INHALATION Q4H.RT #120 ampul.neb Ferrous Sulfate 325 mg PO BIDCM #60 tab Potassium Chloride [K-Dur] 40 meq PO BIDCM #120 tab Primary Care Physician: Tania Berger NP-C [Primary Care Provider] - Please follow up with your Primary Care Physician in: 1 Week Please Follow Up With: Dr. Mcgarry - Kidney Doctor When: As scheduled, 02/24/18 @3:30PM Please Follow Up With: Dr. Velasqeuz - Hematology When: Call for appointment Please Follow Up With: Dr. Sandra - Cardiology When: 1-2 Weeks Disposition: Home Minutes spent on discharge:: 35 Patient Condition:: Stable Medical Necessity - Tobacco Use Smoking Status: Current every day smoker Tobacco Use: Cigarettes Meaningful Use Info Meaningful Use Diagnoses (Choose all that apply): CHF - CHF HEATHER/ARB ordered at discharge?: No Reason HEATHER/ARB not ordered?: Worsening renal dysfunctn Documented LVEF (%): 0 - EF unknown. Reported normal by patient. <Chris Stark - Last Filed: 01/30/18 14:52> Discharge Date and Diagnosis - Secondary Discharge Diagnosis Chronic Problems HLD (hyperlipidemia) (Chronic) HTN (hypertension) (Chronic) PAD (peripheral artery disease) (Chronic) CAD (coronary artery disease) (Chronic) COPD (chronic obstructive pulmonary disease) (Chronic) Tobacco dependence (Chronic) CKD (chronic kidney disease) (Chronic) Leukocytosis (Chronic) Anemia (Chronic) BPH (benign prostatic hyperplasia) (Chronic) Hospital Course and Treatment Imaging Results: 01/30/18 08:16 CXR [Chest PA and Lateral] [RAD] AM (NON MEDS) Operations: None Procedures: None Summary of Care Provided: Patient seen and examined independently. I agree with the above note by the nurse practitioner. The patient is a 67 year old M presents with an acute exacerbation of heart failure. Patient has been previously evaluated at other hospitals and results of previous echocardiograms are unavailable at this time the patient reports a normal ejection fraction. Patient came in with a weight of 98.5 kg and the day of discharge he is 9.7 kg. He received IV Lasix. Patient will continue with Bumex as he was taking previously but also take an additional dose for a weight gain of 2 pounds in 1 day or 3 pounds in 1 week. Patient already has previously scheduled follow-up appointments with other specialist prior to this admission. [] Discharge Diet: Low fat/ Low Cholesterol, 6 Cup Fluid Restriction, 2000 mg Sodium Diet Discharge Activity: Return to Normal Activity Call your doctor if you observe: Shortness of breath, Dizziness, Fainting spells, Chest pain, Increased palpitations (irregular heartbeat) Disposition: Home Minutes spent on discharge:: 35 Patient Condition:: Stable Medical Necessity - Tobacco Use Smoking Status: Current every day smoker Tobacco Use: Cigarettes Meaningful Use Info Meaningful Use Diagnoses (Choose all that apply): CHF - CHF HEATHER/ARB ordered at discharge?: No Reason HEATHER/ARB not ordered?: Worsening renal dysfunctn Documented LVEF (%): 99 Code Visit Inpatient E&M: 31464 Disch Hosp
--- NOTE | 2018-01-30 14:39 | DS.PCM_ITS ---
<Haven Carlson - Last Filed: 01/30/18 14:40> Discharge Date and Diagnosis Date of Admission: 01/28/18 Date of Discharge: 01/30/18 - Primary Discharge Diagnosis Active and Suspected Problems 1. Acute hypoxic respiratory failure secondary to acute on chronic diastolic CHF 2. Leukocytosis-resolved. Suspect reactive. Infectious etiology ruled out. 3. Iron deficiency anemia 4. Indeterminate troponin 5. Hypokalemia 6. Lactic acidosis-resolved. - Secondary Discharge Diagnosis Chronic Problems HLD (hyperlipidemia) (Chronic) HTN (hypertension) (Chronic) PAD (peripheral artery disease) (Chronic) CAD (coronary artery disease) (Chronic) COPD (chronic obstructive pulmonary disease) (Chronic) Tobacco dependence (Chronic) CKD (chronic kidney disease) (Chronic) Leukocytosis (Chronic) Anemia (Chronic) BPH (benign prostatic hyperplasia) (Chronic) Hospital Course and Treatment Imaging Results: Diagnostic Data Chest X-Ray 01/30/18 08:16 IMPRESSION: Stable appearance of CHF. Progressive bibasilar atelectasis and/or infiltrate worse on the right side. Electronically Signed: Deven Hensley MD at 9:23 EDT Tel [phone], Service support , Operations: None Procedures: None Summary of Care Provided: Patient is a 67-year-old male admitted 01/28/18 due to shortness of breath. His past medical history includes CAD status post CABG/PCI, tobacco dependence, hypertension, hyperlipidemia, BPH, iron deficiency anemia, CKD, alcohol abuse. 1. Acute hypoxic respiratory failure secondary to acute on chronic diastolic CHF-chest x-ray on admission consistent with CHF. Patient required BiPAP on admission. Now stable on room air. Patient received IV Lasix during admission and will be discharged on home Bumex regimen of 2 mg twice daily. Walking pulse ox completed and oxygen remained 96% with ambulation. Repeat chest x-ray showed stable appearance of CHF. Patient educated on fluid and sodium restriction. He will continue outpatient follow-up with his trade specialist, Dr. Sandra. Patient states he had recent echo at outside facility with reported normal ejection fraction. Records requested but were not able to be obtained. Patient will continue close follow up with trade specialist. 2. Leukocytosis-resolved. Infectious etiology ruled out. Suspect reactive secondary to #1. 3. Iron deficiency anemia-patient reports recent blood transfusion, iron transfusion and erythropoietin injection during recent admission to [facility]. Iron studies completed and confirm iron deficiency anemia. Patient was given to IV iron transfusions. Hemoglobin stable, 8.4. Continue outpatient follow-up with hematology. 4. Indeterminate troponin-EKG without evidence of ischemia. Troponin 0.07, 0.09, 0.08, 0.05. Suspect secondary to #1. Denies chest pain. 5. Lactic acidosis-lactic acid on admission 2.5. Do not suspect related to infection/sepsis. Repeat lactic acid 0.8. Suspect secondary to #1. 6. Hypokalemia-replaced IV and orally. BMP in 3 days at discharge. Followed by primary care physician. 7. Chronic kidney disease, suspected stage IV-creatinine 2.7 on admission. Unknown what patient's baseline is. Creatinine improved to 1.6. Patient will continue outpatient follow-up with nephrology as scheduled. 8. CAD-status post CABG/PCI. Most recent stents placed May 2017. Continue aspirin, statin, Plavix, beta-lesa. 9. Chronic COPD- no not suspect acute exacerbation. No audible wheezing noted on examination. 10. PAD-status post attempted intervention which was unable to be performed per . Continue aspirin, statin, Plavix. Home Pletal regimen discontinued due to known exacerbating of CHF. 11. Hyperlipidemia-continue statin. 12. Hypertension-stable, continue home regimen including Cardizem, hydralazine, metoprolol. 13. Tobacco dependence-current half pack per day smoker. Encourage smoking cessation. 14. BPH-continue home Flomax regimen. 15. Alcohol abuse-strongly encouraged alcohol cessation. General: Alert, Oriented x3, Cooperative, No apparent distress HEENT: Atraumatic, PERRLA, EOMI, Normocephalic Neck: Supple, No JVD, Negative Carotid Bruits Lungs: Clear to auscultation, Diminished Cardiovascular: Regular rate, Regular Rhythm, Normal S1, Normal S2, No murmurs Abdomen: Bowel Sounds Present, Soft, Non Tender, Non-Distended Extremities: No clubbing, No cyanosis, Edema - +2 BLLE Skin: No rashes, No breakdown Musculoskeletal: No Tenderness to Palpation of Joints or Extremities Neurological: Cranial nerves II-XII grossly intact, Neuro grossly intact Psych/Mental Status: Normal Affect, Appropriate Patient seen and examined prior to discharge. Physical assessment as noted above. Stable for discharge home with the follow-up recommendations as noted above. This patient was seen by SEUN Obregon under the supervision of Dr. Stark. Discharge Diet: Low fat/ Low Cholesterol, 8 Cup Fluid Restriciton, 2000 mg Sodium Diet Discharge Activity: Return to Normal Activity Call your doctor if you observe: Shortness of breath, Dizziness, Fainting spells , Chest pain, Increased palpitations (irregular heartbeat) Home Medications: Medications to take at Discharge Aspirin [Aspirin, Baby] 81 mg PO DAILY@0800 01/28/18 Bumetanide 2 mg PO BID 01/28/18 Clopidogrel Bisulfate [Plavix] 75 mg PO DAILY 01/28/18 Diltiazem HCl [Cartia Xt] 120 mg PO DAILY 01/28/18 Magnesium Oxide [Magnesium] 400 mg PO BID 01/28/18 Metoprolol Succinate 100 mg PO BID 01/28/18 Ropinirole HCl [Requip] 1 mg PO DAILY 01/28/18 Rosuvastatin Calcium [Crestor] 40 mg PO DAILY 01/28/18 Spironolactone 25 mg PO DAILY 01/28/18 Tamsulosin HCl [Flomax] 0.4 mg PO DAILY 01/28/18 hydrALAZINE [Apresoline] 50 mg PO TID 01/28/18 Ferrous Sulfate 325 mg PO BIDCM #60 tab 01/30/18 Ipratropium/Albuterol Sulfate [Duoneb] 3 ml INHALATION Q4H.RT #120 ampul.neb Potassium Chloride [K-Dur] 40 meq PO BIDCM #120 tab 01/30/18 Following Prescrptions Were Given to Patient: Ipratropium/Albuterol Sulfate [Duoneb] 3 ml INHALATION Q4H.RT #120 ampul.neb Ferrous Sulfate 325 mg PO BIDCM #60 tab Potassium Chloride [K-Dur] 40 meq PO BIDCM #120 tab Primary Care Physician: Tania Berger NP-C [Primary Care Provider] - Please follow up with your Primary Care Physician in: 1 Week Please Follow Up With: Dr. Mcgarry - Kidney Doctor When: As scheduled, 02/24/18 @3:30PM Please Follow Up With: Dr. Velasquez - Hematology When: Call for appointment Please Follow Up With: Dr. Sandra - Cardiology When: 1-2 Weeks Disposition: Home Minutes spent on discharge:: 35 Patient Condition:: Stable Medical Necessity - Tobacco Use Smoking Status: Current every day smoker Tobacco Use: Cigarettes Meaningful Use Info Meaningful Use Diagnoses (Choose all that apply): CHF - CHF HEATHER/ARB ordered at discharge?: No Reason HEATHER/ARB not ordered?: Worsening renal dysfunctn Documented LVEF (%): 0 - EF unknown. Reported normal by patient. <Chris Stark - Last Filed: 01/30/18 14:52> Discharge Date and Diagnosis - Secondary Discharge Diagnosis Chronic Problems HLD (hyperlipidemia) (Chronic) HTN (hypertension) (Chronic) PAD (peripheral artery disease) (Chronic) CAD (coronary artery disease) (Chronic) COPD (chronic obstructive pulmonary disease) (Chronic) Tobacco dependence (Chronic) CKD (chronic kidney disease) (Chronic) Leukocytosis (Chronic) Anemia (Chronic) BPH (benign prostatic hyperplasia) (Chronic) Hospital Course and Treatment Imaging Results: 01/30/18 08:16 CXR [Chest PA and Lateral] [RAD] AM (NON MEDS) Operations: None Procedures: None Summary of Care Provided: Patient seen and examined independently. I agree with the above note by the nurse practitioner. The patient is a 67 year old M presents with an acute exacerbation of heart failure. Patient has been previously evaluated at other hospitals and results of previous echocardiograms are unavailable at this time the patient reports a normal ejection fraction. Patient came in with a weight of 98.5 kg and the day of discharge he is 9.7 kg. He received IV Lasix. Patient will continue with Bumex as he was taking previously but also take an additional dose for a weight gain of 2 pounds in 1 day or 3 pounds in 1 week. Patient already has previously scheduled follow-up appointments with other specialist prior to this admission. [] Discharge Diet: Low fat/ Low Cholesterol, 6 Cup Fluid Restriction, 2000 mg Sodium Diet Discharge Activity: Return to Normal Activity Call your doctor if you observe: Shortness of breath, Dizziness, Fainting spells , Chest pain, Increased palpitations (irregular heartbeat) Disposition: Home Minutes spent on discharge:: 35 Patient Condition:: Stable Medical Necessity - Tobacco Use Smoking Status: Current every day smoker Tobacco Use: Cigarettes Meaningful Use Info Meaningful Use Diagnoses (Choose all that apply): CHF - CHF HEATHER/ARB ordered at discharge?: No Reason HEATHER/ARB not ordered?: Worsening renal dysfunctn Documented LVEF (%): 99 Code Visit Inpatient E&M: 98639 Disch Hosp
--- NOTE | 2018-02-01 16:19 | CASEMGMT ---
RAYMOND SPENCER DISCHARGE F/U PHONE CALL LACE: Raciel STRATA: 3 CALL DATE: 02/01/18 DISCHARGE DATE: 01/30/18 TIME OF CALL: 1612 DURATION: 8 MINUTES ADM DX: PULM EDEMA, RESP FAILURE PT STATES HAS BEEN 'NOT REAL GOOD' SINCE ADMISSION. PT C/O SORE THROAT AND DRY MOUTH SINCE DISCHARGE AND ASKS IF THAT COULD BE RELATED TO THE BIPAP THAT HE WAS ON BOTH NIGHTS BECAUSE HE HAS NOT BEEN ON THAT BEFORE. ADVISED PT THAT IT COULD BE FROM THAT BUT THAT HE SHOULD ALSO HAVE THE SORE THROAT CHECKED BY A PHYSICIAN TO MAKE SURE NOTHING ELSE IS GOING ON, PT VOICES UNDERSTANDING AND STATES HE HAS F/U SCHEDULED WITH PCP TOMORROW. PT ALSO STATES THAT HIS PCP RECEIVED A CALL FROM THE HOSPITAL TODAY STATING THAT HE HAS AN 'INFECTION IN HIS BLOOD'. PT STATES THAT HE IS ALSO F/U WITH DR EVANS, HIS [employer] TOMORROW AND THAT DR EVANS AND PCP HAVE BEEN IN CONTACT REGARDING 'BLOOD INFECTION'. PT STATES THAT HE HAS NO CONCERNS/SUGGESTIONS FOR THE IMPROVEMENT OF [facility] AT THIS TIME. PT STATES 'I LOVED THAT DR. Butterfield!!!' PT STATES HE WILL BE FOLLOWING UP WITH ALL DR'S AND STATES NO FURTHER QUESTIONS/CONCERNS AT THIS TIME. PT PROVIDED WITH THIS RAYMOND SPENCER'S CONTACT INFO AT THIS TIME AND ADVISED HIM TO CALL WITH ANY FURTHER QUESTIONS/CONCERNS/NEEDS, VOICES UNDERSTANDING. MILEY ANDRADE CM
== END 2018-01-30 15:24 | disposition home or self-care (01) | DRG 291 ==
LOC: ED 15:32 → PCU 16:51
PROVIDERS: Nurse Practitioner Family; Admitting Provider Internal Medicine; Emergency Provider Emergency Medicine; Family Provider Nurse Practitioner Family; PCP Nurse Practitioner Family
DX: I13.0 Hypertensive heart and chronic kidney disease with heart failure and stage 1 through stage 4 chronic kidney disease, or unspecified chronic kidney disease (principal); J96.01 Acute respiratory failure with hypoxia; I50.33 Acute on chronic diastolic (congestive) heart failure; E87.2 Acidosis; D50.9 Iron deficiency anemia, unspecified; E87.6 Hypokalemia; E78.5 Hyperlipidemia, unspecified; I25.10 Atherosclerotic heart disease of native coronary artery without angina pectoris; N40.0 Benign prostatic hyperplasia without lower urinary tract symptoms; N18.3 Chronic kidney disease, stage 3 (moderate); J44.9 Chronic obstructive pulmonary disease, unspecified; I73.9 Peripheral vascular disease, unspecified; Z95.1 Presence of aortocoronary bypass graft; F17.210 Nicotine dependence, cigarettes, uncomplicated; F10.10 Alcohol abuse, uncomplicated; I25.2 Old myocardial infarction; D72.829 Elevated white blood cell count, unspecified
CPT/HCPCS: 36415; 36600; 71045; 71046; 80048; 80053; 82728; 82803; 83540; 83550; 83605; 83735; 84484; 85025; 85027; 85610; 85730; 87040; 87149; 93005; 94002; 94003; 94640; 99251; 99285; 99406; J1756; J7040; A4216; G0463; J1940

== ENCOUNTER 2018-04-05 21:26 | Emergency (ER) | payer MEDICARE, SELFPAY ==
[2018-04-05 21:26] VITALS: BP 189/79; PULSE 83; RESP 16; TEMP 36.7; O2SAT 98; BMI 31.1
--- NOTE | 2018-04-05 22:39 | ED.VISSUMM ---
- ER Visit Summary Date of Service: 04/05/18 Chief Complaint: Blood in Charles catheter bag History of Present Illness: The patient is a 67 M presenting with blood in Charles catheter bag. Patient states he was discharged from [facility] last . He was discharged with a Charles catheter in place. He has an appointment with Dr. Villa tomorrow. He noted blood in his Charles catheter bag today. He did not see clots. The catheter has been draining appropriately. He has no fever or other complaints. Physical Examination: Vitals are stable. Patient is afebrile. Alert no acute distress. HEENT exam is unremarkable. Neck is supple. Lungs are clear and equal bilaterally. Heart is regular rate and rhythm. Abdomen is soft nontender nondistended. Extremities are unremarkable. Skin is warm and dry. No focal neurologic deficit. Remainder of exam is unremarkable. Emergency Department Course and Treatment: Charles catheter was irrigated until clear. Urine is pink tinged. There are no clots. Urinalysis shows 0-5 white cells, over 100 red cells, positive leukocyte esterase, positive nitrites. Urine culture was sent. Discussed with Dr. Villa. Patient will be seen tomorrow as scheduled. Advised return to the ED if worsening complaints. Disposition: Discharge home Impression: Hematuria This note was generated with [employer] dictation software. It may contain incorrect words, spelling, and punctuation that were not noted in review of the chart prior to signing ED Disposition - Plan for ED Patient: Chief Complaint: Charles C/O Referrals: Tania Berger, ARMEN-C [Primary Care Provider] -
[2018-04-05 23:36] LABS: Bacteria 0 SEEN /hpf (None Seen); Mucous, Urine 0 SEEN /hpf (<or=2+); Squamous Epithelial Cells - UA 0 SEEN /hpf (0-5)
[2018-04-05 23:37] LABS: Color, Urine Brown (Yellow); Glucose, Dipstick Normal (Normal); Ketone-Dipstick 5 mg/dl (Negative); Leukocyte Esterase-Dipstick 100 /ul (Negative); Nitrite-Dipstick Positive (Negative); Occult Blood-Urine 250 /ul (Negative); Protein-Dipstick 100 mg/dl (Negative); Urine Bilirubin Dipstick Negative (Negative); Urine Clarity Cloudy (Clear); Urine Urobilinogen 1 mg/dl (Normal)
[2018-04-05 23:47] LABS: Red Blood Cells-Urine > 100 SEEN /hpf (0-5)
[2018-04-05 23:48] LABS: Uric Acid Crystals Ur 1+ /hpf (<or=1+); White Blood Cells 0-5 SEEN /hpf (0-5)
--- NOTE | 2018-04-06 00:31 | ED.DEP ---
ED Disposition - Plan for ED Patient: Chief Complaint: Charles C/O Instructions: ED Catheter Care Charles Referrals: Tania Berger NP-Izabel [Primary Care Provider] - Alvaro Villa MD [STAFF PHYSICIAN] -
--- NOTE | 2018-04-06 00:37 | ED.RN ---
DISCHARGE INSTRUCTIONS GIVEN TO AND REVIEWED WITH PATIENT, PATIENT DENIES QUESTIONS OR CONCERNS AND VOICES UNDERSTANDING OF DISCHARGE INSTRUCTIONS. PT AMBULATES OUT OF ROOM WITHOUT DIFFICULTY.
== END 2018-04-06 00:37 | disposition home or self-care (01) ==
PROVIDERS: Emergency Provider Emergency Medicine; Family Provider Nurse Practitioner Family; PCP Nurse Practitioner Family
DX: R31.9 Hematuria, unspecified (principal); Z96.0 Presence of urogenital implants
CPT/HCPCS: 81001; 87077; 87086; 87088; 87186; 99282

== ENCOUNTER 2018-04-07 20:52 | Inpatient (IN) | payer MEDICARE, SELFPAY ==
[2018-04-07 20:54] VITALS: BP 144/69; PULSE 100; RESP 22; TEMP 38.5; O2SAT 97; BMI 31.4
[2018-04-07 22:05] LABS: Anion Gap 8 (5-15); BUN 26 mg/dL (7-18); BUN/Creat Ratio 12.5 RATIO (10-20); Calcium,Total 8.6 mg/dL (8.5-10.1); Chloride 96 mmol/L (98-107); Creatinine, Serum 2.08 mg/dL (0.70-1.30); EST Glomerular Filtration Rate 34 mL/min (>60); Est Glom Filt Rate - Afr Amer 41 mL/min (>60); Estimated Creatinine Clearance 32.66 ml/min; Glucose 98 mg/dL (74-106); Potassium 3.9 mmol/L (3.5-5.1); Sodium Level 130 mmol/L (136-145)
[2018-04-07 22:06] LABS: Absolute Lymphocyte Count 1.48 X10^3/ul (0.83-4.51); Absolute Neutrophil Count 26.3 X10^3/uL (2.0-7.7); Basophil# 0.03 X10^3/uL; Basophil% 0.1 % (0-1); Eosinophil# 0.01 X10^3/uL; Hematocrit 27.5 % (40-54); Hemoglobin 8.8 g/dl (13.0-16.5); Lymphocyte # 1.48 X10^3/ul (4.0); Lymphocyte % 4.8 % (19-41); Mean Corpuscular Hgb 30.2 pg (27.0-32.0); Mean Corpuscular Volume 94.5 fL (80-94); Mean Platelet Vol. 8.8 fl (6.2-12.0); Monocyte# 2.62 X10^3/uL; Monocyte% 8.6 % (0-10); Neutrophil # 26.33 X10^3/uL (2.7-7.7); Neutrophil % 86.3 % (47-70); Platelet Count 260 K/mm3 (150-450); RBC Distribution Width CV 17.1 % (11.6-14.6); RBC Distribution Width SD 58.9 fl (35.1-43.9); Red Blood Count 2.91 M/mm3 (4.6-6.2)
[2018-04-07 22:08] LABS: Differential Indicated SCAN CRITERIA MET; POSITIVE COUNT YES; POSITIVE DIFFERENTIAL YES; POSITIVE MORPHOLOGY NO; White Blood Count 30.5 K/mm3 (4.4-11.0)
[2018-04-07 22:23] LABS: Bacteria 0 SEEN /hpf (None Seen); Mucous, Urine 0 SEEN /hpf (<or=2+)
[2018-04-07 22:25] LABS: Differential Comment SCANNED
[2018-04-07 22:28] LABS: Color, Urine Yellow (Yellow); Glucose, Dipstick Normal (Normal); Ketone-Dipstick Negative (Negative); Leukocyte Esterase-Dipstick 500 /ul (Negative); Nitrite-Dipstick Negative (Negative); Occult Blood-Urine 250 /ul (Negative); Protein-Dipstick 100 mg/dl (Negative); Urine Bilirubin Dipstick Negative (Negative); Urine Clarity Clear (Clear); Urine Urobilinogen Normal (Normal)
[2018-04-07] MEDS: 0.9% Normal Saline 1,000 ML 150 ML IV (22:28)
[2018-04-07 22:34] LABS: Red Blood Cells-Urine 5-10 SEEN /hpf (0-5); Squamous Epithelial Cells - UA 0-5 SEEN /hpf (0-5); White Blood Cells 25-50 SEEN /hpf (0-5)
[2018-04-07 22:36] LABS: Hyaline Cast 0-5 SEEN /lpf (0-5)
[2018-04-07 22:59] VITALS: PULSE 92; RESP 20; O2SAT 97
--- NOTE | 2018-04-07 23:00 | RAD_ITS ---
STUDY: X-RAY CHEST REASON FOR EXAM: Male, 67 years old. Charles pain TECHNIQUE: Single x2 AP portable view of the chest. COMPARISON: January 30, 2018 chest x-ray FINDINGS: Interstitial markings are diffusely prominent similar to the prior study. There is resolve of the bilateral effusions and/or infiltrates. Sternal cerclage wires are present from a prior sternotomy. Normal mediastinum and justyn. Normal visualized pulmonary arteries. There is atherosclerotic calcification of the aortic arch with tortuosity. There are diffuse degenerative changes of the visualized thoracic spine. Normal visualized ribs, clavicles, and shoulders. There is no demonstrated abnormality of the visualized soft tissue structures of the upper abdomen. RAD/Chest 1 View (Portable) IMPRESSION: Status post sternotomy. Consider mild edema. Cannot entirely exclude underlying chronic lung disease. Electronically Signed: Stephanie Martínez MD at 23:53 EDT Tel , Service support ,
--- NOTE | 2018-04-07 23:18 | ED.VISSUMM ---
- ER Visit Summary Date of Service: 04/07/18 Chief Complaint: Charles catheter pain History of Present Illness: The patient is a 67 M history coronary disease, CHF, COPD, hypertension, high cholesterol, BPH. Patient was discharged from [facility] last week with a Charles catheter. He was seen here on the evening of May 05 where his Charles was irrigated. Patient was seen by Dr. Villa yesterday in the office and catheter was removed. Catheter had to be replaced this morning due to decreased urine output. Patient presents complaining of pain to his penis area from the catheter insertion and having little output in his Charles bag. Physical Examination: Blood pressure is 144/69, temperature 101.3 TA, heart rate 100, respiratory rate 20, pulse ox 97% on room air. The time of my examination his oral temperature is 98.9. Head and neck examination is unremarkable. Heart is regular rate and rhythm. lung sounds are clear. Abdomen is soft and nontender. He does have some abdominal wall bruising from his recent heparin injections. There is no focal tenderness over the bladder and bladder does not feel distended. Test Results: Bedside bladder scan does not show any retained urine. Charles catheter easily irrigates. CBC is significant for white count of 30.5 with 86% neutrophils. Hemoglobin is 8.8 which appears consistent with his baseline. Chemistry studies reveal sodium of 130 and a chloride of 96. BUN is 26 and creatinine is 2.08. This is slightly elevated compared to his baseline but he has had worse renal function in the past. Urinalysis shows 25-50 white blood cells with 5-10 RBCs. No bacteria is noted. Blood and urine cultures were sent. Emergency Department Course and Treatment: Patient was given mild IV fluids. He was complaining of increasing shortness of breath and felt like his lungs were filling up with fluid. Fluids were turned down. Patient was placed on supplemental oxygen for comfort only. His oxygen saturations remained in the mid 90s. Portable chest x-ray shows mild pulmonary congestion per my read. I did review urine culture from 2 days ago it appears to be growing Pseudomonas. He is given a dose of Zosyn and a new urine culture has been sent. Treatment Plan: [] Disposition: Admit Impression: 1. Leukocytosis 2. Pseudomonas positive urine culture 3. Hyponatremia This note was generated with [employer] software. It may contain incorrect words, spelling, and punctuation that were not noted in review of the chart prior to signing ED Disposition - Plan for ED Patient: Disposition: Acute Care Hospital [facility] Chief Complaint: Charles C/O
--- NOTE | 2018-04-07 23:21 | ED.DCSUM_ITS ---
- ER Visit Summary Date of Service: 04/07/18 Chief Complaint: Charles catheter pain History of Present Illness: The patient is a 67 M history coronary disease, CHF , COPD, hypertension, high cholesterol, BPH. Patient was discharged from [facility] last week with a Charles catheter. He was seen here on the evening of May 05 where his Charles was irrigated. Patient was seen by Dr. Villa yesterday in the office and catheter was removed. Catheter had to be replaced this morning due to decreased urine output. Patient presents complaining of pain to his penis area from the catheter insertion and having little output in his Charles bag. Physical Examination: Blood pressure is 144/69, temperature 101.3 TA, heart rate 100, respiratory rate 20, pulse ox 97% on room air. The time of my examination his oral temperature is 98.9. Head and neck examination is unremarkable. Heart is regular rate and rhythm. lung sounds are clear. Abdomen is soft and nontender. He does have some abdominal wall bruising from his recent heparin injections. There is no focal tenderness over the bladder and bladder does not feel distended. Test Results: Bedside bladder scan does not show any retained urine. Charles catheter easily irrigates. CBC is significant for white count of 30.5 with 86% neutrophils. Hemoglobin is 8.8 which appears consistent with his baseline. Chemistry studies reveal sodium of 130 and a chloride of 96. BUN is 26 and creatinine is 2.08. This is slightly elevated compared to his baseline but he has had worse renal function in the past. Urinalysis shows 25-50 white blood cells with 5-10 RBCs. No bacteria is noted. Blood and urine cultures were sent. Emergency Department Course and Treatment: Patient was given mild IV fluids. He was complaining of increasing shortness of breath and felt like his lungs were filling up with fluid. Fluids were turned down. Patient was placed on supplemental oxygen for comfort only. His oxygen saturations remained in the mid 90s. Portable chest x-ray shows mild pulmonary congestion per my read. I did review urine culture from 2 days ago it appears to be growing Pseudomonas. He is given a dose of Zosyn and a new urine culture has been sent. Treatment Plan: [] Disposition: Admit Impression: 1. Leukocytosis 2. Pseudomonas positive urine culture 3. Hyponatremia This note was generated with [employer] software. It may contain incorrect words, spelling, and punctuation that were not noted in review of the chart prior to signing ED Disposition - Plan for ED Patient: Disposition: Acute Care Hospital [facility] Chief Complaint: Charles C/O
--- NOTE | 2018-04-07 23:23 | HP.PCM_ITS ---
Problem List (1) UTI (urinary tract infection) Status: Acute (2) Sepsis Status: Acute (3) Diastolic CHF Status: Acute Qualifiers: Heart failure chronicity: acute on chronic Qualified Code(s): I50.33 - Acute on chronic diastolic (congestive) heart failure (4) Respiratory failure with hypoxia Status: Acute (5) Anemia Status: Chronic (6) CKD (chronic kidney disease) Status: Chronic Qualifiers: Chronic kidney disease stage: stage 3 (moderate) Qualified Code(s): N18.3 - Chronic kidney disease, stage 3 (moderate) (7) HLD (hyperlipidemia) Status: Chronic (8) HTN (hypertension) Status: Chronic (9) PAD (peripheral artery disease) Status: Chronic (10) Tobacco dependence Status: Chronic History of Present Illness Date of Admission: 04/07/18 Chief Complaint: Sepsis secondary to UTI The patient is a 67 year old male w/ h/o CAD, CHF, COPD, HTN, BPH, lipidemia and urinary obstruction admitted for sepsis secondary to UTI. He was recently discharged from [facility] last week with a grider catheter secondary to urinary obstruction secondary to BPH. He was seen in the ED several days away when his grider was flushed. He also saw Dr. Villa and his cath was removed. However, he was not able to urinate and the cath was placed back. He was supposed to have surgery sometimes next week for BPH. He continued to have pain at the cath insertion site. Pain was sharp and constant. Pain was severe that it interfered with his ADL. Nothing made the pain better or worse. HE continued to have minimal UOP. No blood noted. No fever or chill. Past Medical History Past Medical History (Chronic Problems): Chronic Problems HLD (hyperlipidemia) (Chronic) HTN (hypertension) (Chronic) PAD (peripheral artery disease) (Chronic) CAD (coronary artery disease) (Chronic) COPD (chronic obstructive pulmonary disease) (Chronic) Tobacco dependence (Chronic) CKD (chronic kidney disease) (Chronic) Leukocytosis (Chronic) Anemia (Chronic) BPH (benign prostatic hyperplasia) (Chronic) Allergies irbesartan [From Avapro] Adverse Reaction (Verified 04/07/18 20:54) Other zolpidem [From Ambien] Adverse Reaction (Verified 04/07/18 20:54) Other Home Medications: Ambulatory Orders Medication Instructions Recorded Aspirin [Aspirin, Baby] 81 mg PO DAILY@0800 04/14/18 Bumetanide 1 mg PO BID 01/28/18 Clopidogrel Bisulfate [Plavix] 75 mg PO DAILY 01/28/18 Metoprolol Succinate 100 mg PO DAILY 01/28/18 Ropinirole HCl [Requip] 1 mg PO DAILY 01/28/18 Rosuvastatin Calcium [Crestor] 40 mg PO DAILY 01/28/18 Spironolactone 50 mg PO DAILY 01/28/18 Tamsulosin HCl [Flomax] 0.4 mg PO BID 01/28/18 hydrALAZINE [Apresoline] 50 mg PO TID 01/28/18 Ferrous Sulfate 325 mg PO BIDCM #60 tab 01/30/18 Ipratropium/Albuterol Sulfate 3 ml INHALATION Q4H.RT #120 01/30/18 [Duoneb] ampul.neb Potassium Chloride [K-Dur] 10 meq PO DAILY 04/08/18 Surgical History: coronary bypass surgery, tonsillectomy Psychiatric History: No pertinent psych hx Smoking Status: Current every day smoker - *Family History Maternal History Items: No pertinent history Paternal History Items: No pertinent history Review of Systems Constitutional: Denies: Chills, Fever, Weight Change HEENT: Denies: Head Aches, Sinus Congestion, Sinus Drainage Cardiovascular: Denies: Chest Pain, Palpitations Respiratory: Denies: Cough, Shortness of breath at rest, Sputum production Gastrointestinal: Denies: Abdominal Pain, Nausea, Vomiting Genitourinary: Denies: Dysuria Musculoskeletal: Reports: - - Penile pain. Denies: Joint Pain, Joint Tenderness Skin: Denies: Rash, Wounds Neurological: Denies: Numbness, Tingling, Focal weakness Psychiatric: Denies: Anxiety, Depression, Homicidal Ideations, Suicidal Ideations Hematologic/ Lymphatic: Denies: Easy Bruising, Easy Bleeding VTE Information - Inpt Only VTE Present on Admission: No VTE Mechan Device Prophylaxis: SCD's VTE Pharm Prophylaxis ordered?: Yes Patient Problems: Active and Suspected Problems UTI (urinary tract infection) (Acute) Sepsis (Acute) - Physical Exam General: Alert, Oriented x3, Cooperative HEENT: Atraumatic, PERRLA, EOMI, Normocephalic Neck: Supple, No JVD, Negative Carotid Bruits Lungs: Clear to auscultation, Normal air movement Cardiovascular: Regular rate, No murmurs Abdomen: Bowel Sounds Present, Soft, Non Tender Extremities: No edema, Capillary Refill Less than 3 Seconds Skin: No rashes, No breakdown Musculoskeletal: No Tenderness to Palpation of Joints or Extremities Neurological: Cranial nerves II-XII grossly intact Psych/Mental Status: Normal Affect, Appropriate Vital Signs Temp Pulse Resp BP Pulse Ox 101.3 F H 92 20 H 144/69 H 97 04/07/18 20:54 04/07/18 22:59 04/07/18 22:59 04/07/18 20:54 04/07/18 22:59 Oxygen Delivery Method Room Air Weight: 91.2 kg Body Mass Index (BMI) 31.4 Laboratory Tests Past 24 Hrs 04/07/18 04/07/18 04/07/18 21:45 21:45 22:17 WBC 30.5 H* RBC 2.91 L Hgb 8.8 L Hct 27.5 L MCV 94.5 H MCH 30.2 MCHC 32.0 RDW 17.1 H RDW Differential 58.9 H Plt Count 260 MPV 8.8 Immature Gran % (Auto) 0.200 Neut % (Auto) 86.3 H Lymph % (Auto) 4.8 L [place] % (Auto) 8.6 Eos % (Auto) 0.0 Baso % (Auto) 0.1 Absolute Neuts (auto) 26.3 H Absolute Lymphs (auto) 1.48 Total Counted Not Reportable Differential Comment SCANNED Diff Path Review May foll Sodium 130 L Potassium 3.9 Chloride 96 L Carbon Dioxide 26.0 Anion Gap 8 BUN 26 H Creatinine 2.08 H Estim Creat Clear Calc 32.66 Est GFR (MDRD) Af Amer 41 L Est GFR (MDRD) Non-Af 34 L BUN/Creatinine Ratio 12.5 Glucose 98 Calcium 8.6 Urine Color Yellow Urine Clarity Clear Urine pH 6.0 Ur Specific [place] 1.010 Urine Protein 100 H Urine Glucose (UA) Normal Urine Ketones Negative Urine Occult Blood 250 H Urine Nitrite Negative Urine Bilirubin Negative Urine Urobilinogen Normal Ur Leukocyte Esterase 500 H Urine RBC 5-10 SEEN Urine WBC 25-50 SEEN Ur Squamous Epith Cells 0-5 SEEN Urine Bacteria 0 SEEN Hyaline Casts 0-5 SEEN Urine Mucus 0 SEEN Assessment/Plan All Active Problems UTI (urinary tract infection) (Acute) Sepsis (Acute) Diastolic CHF (Acute) Respiratory failure with hypoxia (Acute) 67 year old male w/ h/o CAD, CHF, COPD, HTN, BPH, lipidemia and urinary obstruction admitted for sepsis secondary to UTI. 1) Sepsis secondary to UTI secondary to grider cath: Urine culture from 2 days ago it appears to be growing Pseudomonas. Urinalysis shows 25-50 white blood cells with 5-10 RBCs. WBC 30.5 with 86% neutrophils. Will start cefepime. Awaiting cultures and sensitivity. Will get lactate. Will start tylenol PRN. IVF hydration. Consult urology 2) DAI: Most likely azotemia. Hydration. Monitor. 3) Hyponatremia: Na 130 Hydration and if no improvement, will get urine osmol, serum osmol, urine Na, and TSH. May need workup as pt has 3+ edema. 4) Chronic issues: CAD, CHF, COPD, HTN, BPH, lipidemia and urinary obstruction. Resume home meds with the exception of diuretics at this time given DAI. Monitor. 5) Prophylaxis: SCD / heparin.
[2018-04-07 23:27] VITALS: BP 179/78; PULSE 94; RESP 20; TEMP 37.1; O2SAT 99
[2018-04-08] VITALS (24 sets, daily range): BP systolic 131–170; BP diastolic 56–66; PULSE 74–105; RESP 17–24; TEMP 36.8–38.2; O2SAT 91–98; BMI 31.2
--- NOTE | 2018-04-08 01:23 | CPS ---
cont. pulse oximeter setup via nursing and monitored at nursing station.
[2018-04-08] MEDS: Ipratropium/Albuterol Sulfate 3 ML AMPUL.NEB INHALATION ×6 (01:24→22:04)
[2018-04-08] MEDS: 0.9% Normal Saline 1,000 ML 150 ML IV (02:11)
[2018-04-08] MEDS: Morphine 4 MG/ML Syringe IV ×3 (02:11→22:21)
[2018-04-08 03:10] LABS: International Normalized Ratio 1.3
[2018-04-08 03:20] LABS: Anion Gap 10 (5-15); BUN 28 mg/dL (7-18); BUN/Creat Ratio 14.9 RATIO (10-20); Calcium,Total 7.9 mg/dL (8.5-10.1); Chloride 99 mmol/L (98-107); Creatinine, Serum 1.88 mg/dL (0.70-1.30); EST Glomerular Filtration Rate 38 mL/min (>60); Est Glom Filt Rate - Afr Amer 46 mL/min (>60); Estimated Creatinine Clearance 36.14 ml/min; Glucose 127 mg/dL (74-106); Potassium 3.5 mmol/L (3.5-5.1); Sodium Level 135 mmol/L (136-145)
[2018-04-08 03:25] LABS: Lactic Acid 0.7 mmol/L (0.4-2.0)
[2018-04-08] MEDS: Heparin Injection (Vial) 5,000 UNIT/ML VIAL 5000 UNIT SC ×3 (05:59→22:22)
[2018-04-08] MEDS: hydrALAZINE 50 MG Tablet PO ×3 (05:59→22:24)
--- NOTE | 2018-04-08 06:32 | PCM.PROGNOTE ---
Patient Problems: Active and Suspected Problems UTI (urinary tract infection) (Acute) Sepsis (Acute) Subjective: The patient is a 67-year-old male with a past medical history of coronary artery disease, history of coronary artery bypass surgery, congestive heart failure, COPD, hypertension, BPH, hyperlipidemia, tobacco dependence, CRF, hx of alcohol abuse and urinary tract obstruction who presented to the emergency room at [facility] on 04/07/2018 complaining of severe pain related to grider catheter. He was admitted to [facility] the preceding week and a Grider catheter was placed secondary to urinary tract obstruction from BPH. He followed up with Dr. Villa and the Grider catheter was discontinued but, he was unable to urinate and the grider was replaced. He is scheduled for surgery next week. Vital signs at admission were temperature 101.3, pulse rate 100, blood pressure 144/69, respiratory rate 22 and the O2 sat was 97% on RA. White blood cell count was elevated at 30.5 with a left shift. Hemoglobin was 8.8 and was 7.829.1 in January 2018. MCV is 94.5 with an increased RDW at 17.1. Platelet count was within normal limits. Sodium was low at 130 and the BUN is 26 with a creatinine of 2.08. Creatinine on 01/30/2018 was 1.62. UA showed 25-50 WBCs per high-powered field. Lactic acid was 0.7. Blood and urine cultures were sent from the emergency room. Chest x-ray was consistent with pulmonary vascular congestion. He was admitted to the hospital with a diagnosis of sepsis secondary to complicated urinary tract infection and started on cefepime. Current temp is 98.4. Heart rate is 89 and the blood pressure is 131/65. Respiratory rate is 20 and he is 95% saturated on a 2 L nasal cannula and 94% saturated on room air. Sodium is now up to 135 and the BUN is 28 with a creatinine of 1.88, down from 2.08 at admission. Glucose is 127. He was admitted to [facility] in January for diastolic CHF and at that time he was discharged on 2 mg of Bumex BID....per the med reconiliation he is now on 1 mg BID. He sees a professor of marketing in [place]. Tells me he had a stress within the past year and it was negative. He has been having CARDENAS, ankle swelling and Orthopnea at home recently. - Physical Exam General: Alert, Oriented x3, Cooperative, - - He appears to be miserable and he states this is due to suprapubic spasms that come and go and pain at the tip of the penis where the grider is inserted. He also complains of tender testicles and swelling of the scrotum HEENT: PERRLA, Normocephalic, - - he has facial telangiectasias. Oral: Moist Mucosa, - Neck: No Nodes, Trachea Midline Lungs: No rhonchi, Rales, Tachypneic - at rest, Wheezes - mild, - - No accessory muscle use, he has symmetric chest rise, no significant conversational dyspnea at rest Cardiovascular: Regular rate, Regular Rhythm, Normal S1, Normal S2, No rub noted, No Gallop Abdomen: Bowel Sounds Present, Soft, Non Tender, Non-Distended, Obese Extremities: No cyanosis, No Calf Tenderness, Edema Skin: - - he has extensive bruising over the abdominal wall due to heparin injections. He has telangiectasias of the face and the chest Musculoskeletal: No Muscle Wasting, Arthritic Changes Neurological: Cranial nerves II-XII grossly intact, Neuro grossly intact Psych/Mental Status: Appropriate Vital Signs Temp Pulse Resp BP Pulse Ox 98.4 F 93 20 H 131/65 H 94 04/08/18 04:15 04/08/18 05:59 04/08/18 06:05 04/08/18 04:15 04/08/18 06:05 Oxygen Flow Rate (L/min) 2 Oxygen Delivery Method Room Air Weight: 199 lb 8.293 oz Body Mass Index (BMI) 31.2 Intake and Output for Last 24 Hours 04/06/18 04/07/18 04/08/18 23:59 23:59 23:59 Intake Total 586 / 586 Output Total 300 / 300 Balance 286 / 286 Laboratory Tests Past 24 Hrs 04/08/18 04/08/18 04/08/18 02:53 02:53 02:53 PT 16.0 H INR 1.3 Sodium 135 L Potassium 3.5 Chloride 99 Carbon Dioxide 26.0 Anion Gap 10 BUN 28 H Creatinine 1.88 H Estim Creat Clear Calc 36.14 Est GFR (MDRD) Af Amer 46 L Est GFR (MDRD) Non-Af 38 L BUN/Creatinine Ratio 14.9 Glucose 127 H Lactic Acid 0.7 Calcium 7.9 L Medical Necessity - Tobacco Use Smoking Status: Current every day smoker Assessment/Plan All Active Problems UTI (urinary tract infection) (Acute) Sepsis (Acute) Diastolic CHF (Acute) Respiratory failure with hypoxia (Acute) Impressions 1. acute diastolic CHF 2. sepsis - due to complicated UTI with in-dwelling grider catheter 3. BPH with urinary tract obstruction 4. CAD 5. hx of CABG in 2010 - follow with a professor of marketing in [place] 6. COPD 7. tobacco dependence 8. hx of alcohol abuse - PT is mildy prolonged and he has telangiectasias of the face and the chest which I suspect are due to chronic alcohol abuse 9. CRF - stage 3 at least 10. obesity 11. HTN 12. HLD 13. suprapubic pain which is intermittent - suspect he may be having bladder spasms Echocardiogram Discontinue IV fluids Start Bumex 2 mg IV BID pyridium and B&O suppositories for pain in the suprapubic area and in the penis itself Diflucan 200 mg PO daily X 3 doses I&O CT scan of the abdomen and the pelvis to assess kidney size and the liver Smoking and ETOH cessation advised Code Visit Inpatient E&M: 42363 Subs Hosp L3
--- NOTE | 2018-04-08 06:45 | RAD_ITS ---
STUDY: X-RAY CHEST REASON FOR EXAM: Male, 67 years old. CHF TECHNIQUE: PA and lateral views of the chest. COMPARISON: April 07, 2018 chest x-ray FINDINGS: Interstitial markings are mildly prominent. There is hazy focal left lower lobe opacity. Trace blunting of the left costophrenic angle. There is minimal opacity in the right lower lobe. Sternal cerclage wires are present from a prior sternotomy. Normal mediastinum and justyn. Normal visualized pulmonary arteries. There is atherosclerotic calcification of the aortic arch with tortuosity. There are diffuse degenerative changes of the visualized thoracic spine. Normal visualized ribs, clavicles, and shoulders. There is no demonstrated abnormality of the visualized soft tissue structures of the upper abdomen. RAD/Chest PA and Lateral IMPRESSION: Post sternotomy. Trace left effusion atelectasis and/or infiltrate. Trace right lower lobe atelectasis. Mild interstitial prominence or mild vascular congestion. Electronically Signed: Stephanie Martínez MD at 9:23 EDT Tel , Service support ,
--- NOTE | 2018-04-08 06:48 | CT_ITS ---
STUDY: CT ABDOMEN AND PELVIS WITHOUT CONTRAST REASON FOR EXAM: Male, 67 years old. Renal failure Urinary tract obstruction. Chronic kidney disease stage III. RADIATION DOSAGE (If Supplied By Facility): CTDIvol = ( 18.03 ) mGy, DLP = ( 896.31 ) mGycm TECHNIQUE: Transaxial images were obtained from the dome of the diaphragm to the symphysis pubis without oral contrast, and without intravenous contrast. Sagittal and coronal images were reconstructed. Individualized dose optimization techniques were used for this CT. COMPARISON: February 13, 2004 CT scan abdomen and pelvis FINDINGS: There is a focus of right lower lobe consolidation with a small right effusion. There is a small left effusion minimal left lower lobe atelectasis. There is partial visualization of sternotomy wires. There is dense coronary calcification seen in the right coronary artery. There is a lymph node in the peridiaphragmatic fat measuring 7.7 mm. The liver is mildly enlarged. The gallbladder is contracted. Normal spleen. Normal pancreas. Normal bilateral adrenal glands. There are calcifications in the right renal hilum compatible vascular calcifications. There is no evidence of hydronephrosis. There is severe left renal atrophy. There is severe plaquing at the takeoff of the right renal artery likely significant stenosis. There is likely stenosis or near occlusion of the left renal artery which is densely calcified. There is left side perinephric stranding within the fat. There is a minimal left renal cyst measuring 7 mm. Normal visualized stomach. Normal small intestine. Normal colon. The appendix is visualized and appears normal. The aorta is densely calcified. The aorta at the hiatus measures 2.1 x 2.2 cm. There is dense calcification takeoff of the celiac with moderate to severe plaque formation which can be best appreciated on the coronal view image #[id number]. There is also dense plaque formation of the visualized spinal mesenteric artery which shows probable significant stenosis 3 cm from the takeoff image #61. As detailed above there is significant plaque formation of the bilateral renal arteries. There is calcification of the inferior mesenteric artery which is likely at least partially occluded. Within the infrarenal aorta there is central and peripheral plaque formation. The aorta measures 1.3 x 1.1 cm with mild to moderate stenosis. Above the bifurcation the aorta measures 1.4 x 1.2 cm. The bilateral iliac arteries are densely calcified as well as the bilateral internal and external iliac arteries. There is partial visualization of the left common femoral artery which is at least moderately stenosed. Image #166 axial views. Normal inferior vena cava. There few nonspecific subcentimeter periaortic lymph nodes. There is a Charles catheter in the bladder. Extremely thick walled appearing bladder is decompressed around the Charles. There is a small amount of gas in the bladder. There is mild prostate enlargement. There are bilateral fatty one hernias. There is multilevel degenerative change in the thoracolumbar spine. At L2-L3, L3-L4, L4-L5 and L5-S1 there is a broad disc bulge with moderate neural foramina narrowing. At L2 L3 L3 L4 L4 L5 there is moderate central stenosis. There is mild central stenosis L5-S1. The left ilium there is a focal sclerotic lesion measuring 1.0 cm. This is new since the prior study. CT/Abdomen/Pelvis without Cont IMPRESSION: Right lower lobe consolidation small right effusion consider possible pneumonia. Left pleural effusion and left lower lobe atelectasis. Dense coronary calcification status post sternotomy. Mild hepatomegaly. Densely calcified vessels of the abdomen is detailed above including critical calcification and stenosis of the bilateral renal arteries. Since the prior study 2003 there is been interval severe atrophy of the left kidney likely due to stenosis of the renal artery. In addition there is marked worsening of the calcification of the celiac and inferior mesenteric arteries. Significant stenosis of the left common femoral artery Wall thickening of the bladder suspicious for cystitis. Mild enlargement of the prostate. Degenerative changes of thoracolumbar spine Osteoblastic lesion in the left ilium recommend follow-up bone scan. Although this may represent a focus of sclerosis interval development raises concern for underlying osteoblastic metastatic disease. Electronically Signed: Stephanie Martínez MD at 9:05 EDT Tel , Service support ,
--- NOTE | 2018-04-08 06:52 | PN_ITS ---
Patient Problems: Active and Suspected Problems UTI (urinary tract infection) (Acute) Sepsis (Acute) Subjective: The patient is a 67-year-old male with a past medical history of coronary artery disease, history of coronary artery bypass surgery, congestive heart failure, COPD, hypertension, BPH, hyperlipidemia, tobacco dependence, CRF, hx of alcohol abuse and urinary tract obstruction who presented to the emergency room at [facility] on 04/07/2018 complaining of severe pain related to grider catheter. He was admitted to [facility] the preceding week and a Grider catheter was placed secondary to urinary tract obstruction from BPH. He followed up with Dr. Villa and the Grider catheter was discontinued but, he was unable to urinate and the grider was replaced. He is scheduled for surgery next week. Vital signs at admission were temperature 101.3, pulse rate 100, blood pressure 144/69, respiratory rate 22 and the O2 sat was 97% on RA. White blood cell count was elevated at 30.5 with a left shift. Hemoglobin was 8.8 and was 7.829.1 in January 2018. MCV is 94.5 with an increased RDW at 17.1. Platelet count was within normal limits. Sodium was low at 130 and the BUN is 26 with a creatinine of 2.08. Creatinine on 2017 was 1.62. UA showed 25-50 WBCs per high-powered field. Lactic acid was 0.7. Blood and urine cultures were sent from the emergency room. Chest x-ray was consistent with pulmonary vascular congestion. He was admitted to the hospital with a diagnosis of sepsis secondary to complicated urinary tract infection and started on cefepime. Current temp is 98.4. Heart rate is 89 and the blood pressure is 131/65. Respiratory rate is 20 and he is 95% saturated on a 2 L nasal cannula and 94% saturated on room air. Sodium is now up to 135 and the BUN is 28 with a creatinine of 1.88, down from 2.08 at admission. Glucose is 127. He was admitted to [facility] in January for diastolic CHF and at that time he was discharged on 2 mg of Bumex BID....per the med reconiliation he is now on 1 mg BID. He sees a tamping machine operator road forms in [place]. Tells me he had a stress within the past year and it was negative. He has been having CARDENAS, ankle swelling and Orthopnea at home recently. - Physical Exam General: Alert, Oriented x3, Cooperative, - - He appears to be miserable and he states this is due to suprapubic spasms that come and go and pain at the tip of the penis where the grider is inserted. He also complains of tender testicles and swelling of the scrotum HEENT: PERRLA, Normocephalic, - - he has facial telangiectasias. Oral: Moist Mucosa, - Neck: No Nodes, Trachea Midline Lungs: No rhonchi, Rales, Tachypneic - at rest, Wheezes - mild, - - No accessory muscle use, he has symmetric chest rise, no significant conversational dyspnea at rest Cardiovascular: Regular rate, Regular Rhythm, Normal S1, Normal S2, No rub noted , No Gallop Abdomen: Bowel Sounds Present, Soft, Non Tender, Non-Distended, Obese Extremities: No cyanosis, No Calf Tenderness, Edema Skin: - - he has extensive bruising over the abdominal wall due to heparin injections. He has telangiectasias of the face and the chest Musculoskeletal: No Muscle Wasting, Arthritic Changes Neurological: Cranial nerves II-XII grossly intact, Neuro grossly intact Psych/Mental Status: Appropriate Vital Signs Temp Pulse Resp BP Pulse Ox 98.4 F 93 20 H 131/65 H 94 04/08/18 04:15 04/08/18 05:59 04/08/18 06:05 04/08/18 04:15 04/08/18 06:05 Oxygen Flow Rate (L/min) 2 Oxygen Delivery Method Room Air Weight: 199 lb 8.293 oz Body Mass Index (BMI) 31.2 Intake and Output for Last 24 Hours 04/06/18 04/07/18 04/08/18 23:59 23:59 23:59 Intake Total 586 / 586 Output Total 300 / 300 Balance 286 / 286 Laboratory Tests Past 24 Hrs 04/08/18 04/08/18 04/08/18 02:53 02:53 02:53 PT 16.0 H INR 1.3 Sodium 135 L Potassium 3.5 Chloride 99 Carbon Dioxide 26.0 Anion Gap 10 BUN 28 H Creatinine 1.88 H Estim Creat Clear Calc 36.14 Est GFR (MDRD) Af Amer 46 L Est GFR (MDRD) Non-Af 38 L BUN/Creatinine Ratio 14.9 Glucose 127 H Lactic Acid 0.7 Calcium 7.9 L Medical Necessity - Tobacco Use Smoking Status: Current every day smoker Assessment/Plan All Active Problems UTI (urinary tract infection) (Acute) Sepsis (Acute) Diastolic CHF (Acute) Respiratory failure with hypoxia (Acute) Impressions 1. acute diastolic CHF 2. sepsis - due to complicated UTI with in-dwelling grider catheter 3. BPH with urinary tract obstruction 4. CAD 5. hx of CABG in 2010 - follow with a tamping machine operator road forms in [place] 6. COPD 7. tobacco dependence 8. hx of alcohol abuse - PT is mildy prolonged and he has telangiectasias of the face and the chest which I suspect are due to chronic alcohol abuse 9. CRF - stage 3 at least 10. obesity 11. HTN 12. HLD 13. suprapubic pain which is intermittent - suspect he may be having bladder spasms Echocardiogram Discontinue IV fluids Start Bumex 2 mg IV BID pyridium and B&O suppositories for pain in the suprapubic area and in the penis itself Diflucan 200 mg PO daily X 3 doses I&O CT scan of the abdomen and the pelvis to assess kidney size and the liver Smoking and ETOH cessation advised Code Visit Inpatient E&M: 63809 Subs Hosp L3
--- NOTE | 2018-04-08 06:52 | ECHOD_ITS ---
Reason For Study: CHF Procedure This was a 2D Doppler, Color Flow transthoracic echocardiogram. Exam performed portable in patient room. Left Ventricle Normal size and thickness. The estimated ejection fraction is 55 %. Stage 2 diastolic dysfunction. No regional wall motion abnormalities noted. Right Ventricle Normal size and thickness. Normal systolic function. Atria The left atrium is moderately enlarged. Normal right atrium. Normal atrial septum. Mitral Valve The mitral valve is structurally normal. No prolapse or stenosis seen. Mild (1+) mitral valve insufficiency. Tricuspid Valve Normal tricuspid valve. Trivial tricuspid valve insufficiency. Right ventricular systolic pressure estimated to be 42 mmHg. Mild pulmonary hypertension. Aortic Valve Trisinus/trileaflet aortic valve. Pulmonic Valve Normal pulmonic valve. Great Vessels Normal aortic root. Normal arch. Normal inferior vena cava. Inferior vena cava collapse with sniff. Pericardium/Pleural No pericardial effusion. MMode/2D Measurements & Calculations LVIDd: 4.7 cm IVSd: 1.6 cm Ao root diam: 3.5 cm LVIDs: 3.4 cm LVPWd: 1.3 cm LA dimension: 4.0 cm FS: 27.4 % LAV(MOD-bp): 69.5 ml LVAd ap4: 29.4 cm2 SV(MOD-sp4): 45.6 ml LAV(MOD-bp) Indexed: 34.5 ml/m2 EDV(MOD-sp4): 84.4 ml LAV(MOD-sp2): 67.0 ml EDV(sp4-el): 89.2 ml LAV(MOD-sp4): 71.9 ml LVAs ap4: 17.6 cm2 ESV(MOD-sp4): 38.7 ml ESV(sp4-el): 39.1 ml EF(MOD-sp4): 54.1 % EF(sp4-el): 56.1 % SV(sp4-el): 50.1 ml LA A4 area: 22.9 cm2 RA A4 area: 18.6 cm2 Time Measurements MV dec time: 0.14 sec Doppler Measurements & Calculations MV E max matt: 143.0 cm/sec Ao V2 max: 138.5 cm/sec LV V1 max: 106.0 cm/sec MV A max matt: 65.4 cm/sec Ao max P.7 mmHg LV V1 max P.5 mmHg MV E/A: 2.2 Ao V2 mean: 95.0 cm/sec LV V1 mean P.4 mmHg Ao mean P.0 mmHg LV V1 mean: 73.6 cm/sec Ao V2 VTI: 27.4 cm LV V1 VTI: 23.2 cm MR max matt: 554.1 cm/sec PA V2 max: 117.7 cm/sec TR max matt: 305.0 cm/sec MR max P.8 mmHg TR max P.2 mmHg MR mean matt: 447.5 cm/sec MR mean P.2 mmHg MR VTI: 178.7 cm Interpretation Summary The estimated ejection fraction is 55 %. Stage 2 diastolic dysfunction. The left atrium is moderately enlarged. Mild (1+) mitral valve insufficiency. Trivial tricuspid valve insufficiency. Right ventricular systolic pressure estimated to be 42 mmHg. Mild pulmonary hypertension. Compared to echo report dated 10/11/2009, LV function has remaained the same. RVSP was not assessed at that time. Ordering Physician: Kiana Armijo Referring Physician: Tania Berger Performed By: Morro Anguiano RCS
[2018-04-08 07:16] LABS: Albumin, Serum 2.7 g/dL (3.2-5.0); Globulin 3.1 g/dL (2.2-4.2); Protein, Total 5.8 g/dL (6.4-8.2)
[2018-04-08 07:17] LABS: AST(SGOT) 19 U/L (15-37); Alanine Aminotransfer ALT/SGPT 23 U/L (16-61); Alkaline Phosphatase 95 U/L (45-117); Bilirubin, Direct 0.25 mg/dL (0.00-0.30); Magnesium 1.9 mg/dL (1.6-2.6); Phosphorus 3.2 mg/dL (2.5-4.9)
--- NOTE | 2018-04-08 08:08 | PCA ---
pt off floor
[2018-04-08] MEDS: Aspirin 81 MG TAB.CHEW PO (08:44)
[2018-04-08] MEDS: Acetaminophen 325 MG Tablet 650 MG PO ×2 (08:44→17:40)
[2018-04-08] MEDS: Tamsulosin HCl 0.4 MG Capsule PO ×2 (08:45→22:22)
[2018-04-08] MEDS: Ferrous Sulfate 325 MG Tablet PO ×2 (08:45→17:32)
[2018-04-08] MEDS: Magnesium Oxide 400 MG Tablet PO ×2 (08:45→22:22)
[2018-04-08] MEDS: Metoprolol(XL)Succ 100 MG Tablet PO (08:46)
[2018-04-08] MEDS: Clopidogrel Bisulfate 75 MG Tablet PO (08:46)
[2018-04-08] MEDS: Furosemide 40 MG/4 ML Vial IV (10:37)
--- NOTE | 2018-04-08 12:47 | NURSING ---
O2 DECREASED TO 1L VIA NC
--- NOTE | 2018-04-08 13:20 | CASEMGMT ---
RN JOHANNA Face to Face with patient for initial transition planning/care coordination assessment. RN CM introduced self and role at [facility]. Patient lying in bed, alert and oriented, at bedside. Patient willing to participate in assessment and is able to answer all questions appropriately. Care providers, pharmacy, and demographics verified. See link attached. Patient wishes to discharge home, denies need for home health at this time. Patient states he has no further needs or concerns at this time. CM to follow for discharge planning needs that may arise. Disposition Plan: Patient to discharge home with family support and follow-up plans in place.
[2018-04-08 13:26] LABS: PSA,Total - Annual Screen 7.51 ng/mL (0.00-4.00)
[2018-04-08] MEDS: amLODIPine 5 MG Tablet PO (13:33)
[2018-04-08] MEDS: Fluconazole 100 MG Tablet 200 MG PO (14:25)
[2018-04-08] MEDS: Phenazopyridine 95 MG Tablet PO ×2 (14:25→23:18)
[2018-04-08] MEDS: Magnesium Hydroxide 30 ML UDC PO (14:26)
--- NOTE | 2018-04-08 15:41 | PCA ---
in talking with pt
--- NOTE | 2018-04-08 16:55 | NURSING ---
O2 INCREASED TO 2L NC
[2018-04-08] MEDS: Bumetanide 1 MG/4 ML Vial 2 MG IV (17:31)
[2018-04-08] MEDS: Pramipexole Di-HCl 0.5 MG Tablet PO (22:23)
[2018-04-08] MEDS: Atorvastatin Calcium 80 MG Tablet PO (22:36)
[2018-04-09] VITALS (22 sets, daily range): BP systolic 131–167; BP diastolic 58–88; PULSE 78–104; RESP 16–22; TEMP 37–37.8; O2SAT 94–98
[2018-04-09] MEDS: Ipratropium/Albuterol Sulfate 3 ML AMPUL.NEB INHALATION ×6 (02:32→22:24)
[2018-04-09] MEDS: Acetaminophen 325 MG Tablet 650 MG PO ×3 (03:52→22:18)
[2018-04-09 06:20] LABS: Anion Gap 10 (5-15); BUN 35 mg/dL (7-18); Calcium,Total 8.3 mg/dL (8.5-10.1); Chloride 103 mmol/L (98-107); Cholesterol 71 mg/dL (200); Creatinine, Serum 1.67 mg/dL (0.70-1.30); EST Glomerular Filtration Rate 44 mL/min (>60); Est Glom Filt Rate - Afr Amer 53 mL/min (>60); Estimated Creatinine Clearance 40.68 ml/min; Glucose 128 mg/dL (74-106); High Density Lipoprotein 43 mg/dL; Magnesium 2.5 mg/dL (1.6-2.6); Phosphorus 3.3 mg/dL (2.5-4.9); Potassium 3.6 mmol/L (3.5-5.1); Sodium Level 138 mmol/L (136-145); Triglycerides 72 mg/dL; Very Low Density Lipoprotein 14 mg/dL (5-40)
[2018-04-09] MEDS: Heparin Injection (Vial) 5,000 UNIT/ML VIAL 5000 UNIT SC ×3 (06:27→22:08)
[2018-04-09] MEDS: hydrALAZINE 50 MG Tablet PO ×3 (06:28→22:11)
[2018-04-09 06:46] LABS: Absolute Lymphocyte Count 1.11 X10^3/ul (0.83-4.51); Absolute Neutrophil Count 21.8 X10^3/uL (2.0-7.7); Basophil# 0.03 X10^3/uL; Basophil% 0.1 % (0-1); Eosinophil# 0.03 X10^3/uL; Eosinophils% 0.1 % (0-5); Hematocrit 26.8 % (40-54); Hemoglobin 8.2 g/dl (13.0-16.5); Lymphocyte # 1.11 X10^3/ul (4.0); Lymphocyte % 4.4 % (19-41); Mean Corp Hgb Conc 30.6 g/gl (32-36); Mean Corpuscular Hgb 30.1 pg (27.0-32.0); Mean Corpuscular Volume 98.5 fL (80-94); Mean Platelet Vol. 9.4 fl (6.2-12.0); Monocyte# 1.98 X10^3/uL; Monocyte% 7.9 % (0-10); Neutrophil # 21.75 X10^3/uL (2.7-7.7); Neutrophil % 87.3 % (47-70); Platelet Count 267 K/mm3 (150-450); RBC Distribution Width CV 17.6 % (11.6-14.6); RBC Distribution Width SD 62.6 fl (35.1-43.9); Red Blood Count 2.72 M/mm3 (4.6-6.2)
[2018-04-09 06:51] LABS: Differential Indicated SCAN CRITERIA MET; POSITIVE COUNT NO; POSITIVE DIFFERENTIAL YES; POSITIVE MORPHOLOGY NO
[2018-04-09 07:43] LABS: Differential Comment SCANNED
[2018-04-09 08:15] LABS: BNP,B-Type NATRIURETIC PEPTIDE 1706.3 pg/mL (0-100)
--- NOTE | 2018-04-09 08:37 | PCM.PROGNOTE ---
Patient Problems: Active and Suspected Problems UTI (urinary tract infection) (Acute) Sepsis (Acute) Subjective: Patient is a 67-year-old male admitted to the hospital with complicated urinary tract infection associated with grider catheter and acute on chronic diastolic CHF. He has been following with Dr. Villa for BPH with UT obstruction and was supposed to have surgery this coming week. Day #3 cefepime All events of the past 24 hours of been reviewed. Tmax over the past 24 hours has been 100.7?F. Temp today is 99.9 currently. Blood pressure is coming down. Current blood pressure is 131/64. Is 97% saturated on a 3.5 L nasal cannula. Mood balance since admission is -430 and he had 1125 cc of urine out yesterday and 700 overnight. White blood cell count is down to 25 from 30.5 at admission. Hemoglobin is 8.2 and platelets are within normal limits. Retinae today is 1.67, down from 2.08 at admission. BNP is 1706 today. Lipid panel Shows an LDL of 14 and an HDL of 43. PSA is elevated at 7.51. Urine protein electrophoresis and serum electrophoresis are pending. Potassium is 3.6 and magnesium is 2.5 today. Phosphorus is within normal limits. Culture is positive for possible Pseudomonas species. Cultures are pending and are negative to date. Echocardiogram shows a 55% ejection fraction with stage II diastolic dysfunction. The left atrium is moderately enlarged. There is +1 MR and trivial TR. Right ventricular systolic pressure was estimated at 42 mmHg. His breathing is somewhat better but he continues to complain of shortness of breath. He tells me that he saw a electronic publisher in [place] approximately 1 year ago and was told he does not have sleep apnea and he does not have COPD. He was recently in [facility] and was told by a axminster rug setter that both his kidneys function. The left kidney on CT scan of the abdomen and pelvis done 04/08 shows severe gauge of the left kidney, likely secondary to renal artery stenosis. CT also shows extensive arterial disease. Complains that he cannot walk because of the pain in his legs when he tries to ambulate. He has seen a vascular surgeon in the past but could not be opened up. He has never been treated for anxiety or depression or had counselling. He started smoking again prior to admission to control anxiety because he could not breath. He used to follow with Dr. Rm and actual saw Dr. Rm for 8 years before they had a falling out. He now follows with Dr. Yu for cardiology. Tells me that he had a renal A doppler recently at [place]. Denies CP. He tells me that the pain in his penis is better today. He has not tried the B&O suppositories. Objective: - Physical Exam General: Alert, Oriented x3, Cooperative, - Every time I enter the room he is sleeping. HEENT: PERRLA, Normocephalic, - - he has facial telangiectasias. Oral: Moist Mucosa, no mucosal lesions Neck: No Nodes, Trachea Midline Lungs: No rhonchi, + Rales, not tachypneic today, Wheezes - mild, - - No accessory muscle use, he has symmetric chest rise, no significant conversational dyspnea at rest Cardiovascular: Regular rate, Regular Rhythm, Normal S1, Normal S2, No rub noted, No Gallop Abdomen: Bowel Sounds Present, Soft, Non Tender, Non-Distended, Obese Extremities: No cyanosis, No Calf Tenderness, Edema is much better today Skin: - - he has extensive bruising over the abdominal wall due to heparin injections. He has telangiectasias of the face and the chest Musculoskeletal: No Muscle Wasting, Arthritic Changes Neurological: Cranial nerves II-XII grossly intact, Neuro grossly intact Psych/Mental Status: Appropriate, cooperative - Physical Exam Vital Signs Temp Pulse Resp BP Pulse Ox 99.9 F H 92 18 131/64 H 97 04/09/18 02:09 04/09/18 07:25 04/09/18 07:25 04/09/18 06:28 04/09/18 08:09 Oxygen Flow Rate (L/min) 3.5 Oxygen Delivery Method Nasal Cannula Weight: 199 lb 8.293 oz Body Mass Index (BMI) 31.2 Intake and Output for Last 24 Hours 04/07/18 04/08/18 04/09/18 23:59 23:59 23:59 Intake Total 2027 / 2027 270 / 270 Output Total 1125 / 1125 700 / 700 Balance 903 / 903 -430 / -430 Laboratory Tests Past 24 Hrs 04/08/18 04/08/18 04/09/18 02:53 13:40 05:15 WBC RBC Hgb Hct MCV MCH MCHC RDW RDW Differential Plt Count MPV Immature Gran % (Auto) Neut % (Auto) Lymph % (Auto) [place] % (Auto) Eos % (Auto) Baso % (Auto) Absolute Neuts (auto) Absolute Lymphs (auto) Total Counted Differential Comment Sodium 135 L Potassium 3.5 Chloride 99 Carbon Dioxide 26.0 Anion Gap 10 BUN 28 H Creatinine 1.88 H Estim Creat Clear Calc 36.14 Est GFR (MDRD) Af Amer 46 L Est GFR (MDRD) Non-Af 38 L BUN/Creatinine Ratio 14.9 Glucose 127 H Calcium 7.9 L Phosphorus Magnesium B-Natriuretic Peptide Total Protein (PEP) Pending Albumin (PEP) Pending Globulin (PEP) Pending Albumin/Globulin (PEP) Pending Dxpin-8-Ymfxfibph Pending Oibpd-6-Kzovrabtq Pending Beta Globulins Pending Gamma Globulins Pending M-Oh Pending Triglycerides Cholesterol LDL Cholesterol VLDL Cholesterol HDL Cholesterol PSA Screen 7.51 H Urine Total Protein Pending Urine Albumin Pending U Wcdun-2-Ngbgwdia Pending U Iraqu-4-Telcmqka Pending U Beta Globulin Pending U Gamma Globulin Pending U PEP M-Oh Pending IgG Pending IgA Pending IgM Pending 04/09/18 04/09/18 04/09/18 05:15 05:15 05:15 WBC 25.0 H RBC 2.72 L Hgb 8.2 L Hct 26.8 L MCV 98.5 H MCH 30.1 MCHC 30.6 L RDW 17.6 H RDW Differential 62.6 H Plt Count 267 MPV 9.4 Immature Gran % (Auto) 0.200 Neut % (Auto) 87.3 H Lymph % (Auto) 4.4 L [place] % (Auto) 7.9 Eos % (Auto) 0.1 Baso % (Auto) 0.1 Absolute Neuts (auto) 21.8 H Absolute Lymphs (auto) 1.11 Total Counted Not Reportable Differential Comment SCANNED Sodium 138 Potassium 3.6 Chloride 103 Carbon Dioxide 25.0 Anion Gap 10 BUN 35 H Creatinine 1.67 H Estim Creat Clear Calc 40.68 Est GFR (MDRD) Af Amer 53 L Est GFR (MDRD) Non-Af 44 L BUN/Creatinine Ratio 21.0 H Glucose 128 H Calcium 8.3 L Phosphorus 3.3 Magnesium 2.5 B-Natriuretic Peptide 1706.3 H Total Protein (PEP) Albumin (PEP) Globulin (PEP) Albumin/Globulin (PEP) Sytxa-0-Ouwzpsbyt Wzvqt-3-Mrlnujqma Beta Globulins Gamma Globulins M-Oh Triglycerides 72 Cholesterol 71 LDL Cholesterol 14 VLDL Cholesterol 14 HDL Cholesterol 43 PSA Screen Urine Total Protein Urine Albumin U Uuyrm-4-Fatmqcdx U Xfgol-8-Fnleiubr U Beta Globulin U Gamma Globulin U PEP M-Oh IgG IgA IgM Medical Necessity - Tobacco Use Smoking Status: Current every day smoker Assessment/Plan All Active Problems UTI (urinary tract infection) (Acute) Sepsis (Acute) Diastolic CHF (Acute) Respiratory failure with hypoxia (Acute) Impressions 1. acute diastolic CHF 2. sepsis - due to complicated UTI with in-dwelling grider catheter - due to bladder outlet obstruction. urine culture with possible Pseudomonas species 3. BPH with urinary tract obstruction 4. CAD 5. hx of CABG in 2010 - follow with a parts salesperson in [place] - Dr. Yu 6. COPD - pt denies......He was told this by a [employer] that he saw in [place] 7. tobacco dependence 8. hx of alcohol abuse - PT is mildy prolonged and he has telangiectasias of the face and the chest which I suspect are due to chronic alcohol abuse. The liver is enlarged. He continues to drink but, not as much as in the past 9. CRF - stage 3 at least. Markedly atrophic left kidney 10. obesity 11. HTN 12. HLD 13. elevated PSA 13. Stage II diastolic dysfunction, moderate left atrial enlargement, elevated right ventricular systolic pressure at 42 consistent with pulmonary hypertension 15. suspected renal artery stenosis 16. PVD 17. anxiety/depression Continue the Bumex X 1 more day....Creat is improving with diuresis supplement the potassium to keep it around [address] Alaniz Consult Dr. Caicedo Start Prednisone 40 mg daily and then taper over the next 5-7 days. Has been using his ALbuterol inhaler 3-4 times a day. Tells me that he can not afford a steroid inhaler.....but, also tells me he does not have COPD? Obtain records from [facility] and from Dr. Yu....wonder if he had a Renal artery Doppler or a renal US? Consult to help with anxiety and depression and start Zoloft Convert to PO Bumex in the AM Would refer to Dr. Agosto for evaluation for claudication He has seen many different doctors in many different cities. I explained to him the continuity is everything in patients with multiple co-morbidities. He would like to get a IM PCP in [place] and is also will ing to see Dr. Alaniz for CRF and Dr. Caicedo for chronic lung disease. He will think about following up with Dr. Barrientos whom he has seen in the past. Spent 45 minutes with the patient and his family discussing diagnoses and plan for treatment and answering their questions Code Visit Inpatient E&M: 18499 Subs Hosp L3
--- NOTE | 2018-04-09 08:44 | PN_ITS ---
Patient Problems: Active and Suspected Problems UTI (urinary tract infection) (Acute) Sepsis (Acute) Subjective: Patient is a 67-year-old male admitted to the hospital with complicated urinary tract infection associated with grider catheter and acute on chronic diastolic CHF. He has been following with Dr. Villa for BPH with UT obstruction and was supposed to have surgery this coming week. Day #3 cefepime All events of the past 24 hours of been reviewed. Tmax over the past 24 hours has been 100.7?F. Temp today is 99.9 currently. Blood pressure is coming down. Current blood pressure is 131/64. Is 97% saturated on a 3.5 L nasal cannula. Mood balance since admission is -430 and he had 1125 cc of urine out yesterday and 700 overnight. White blood cell count is down to 25 from 30.5 at admission. Hemoglobin is 8.2 and platelets are within normal limits. Retinae today is 1.67, down from 2.08 at admission. BNP is 1706 today. Lipid panel Shows an LDL of 14 and an HDL of 43. PSA is elevated at 7.51. Urine protein electrophoresis and serum electrophoresis are pending. Potassium is 3.6 and magnesium is 2.5 today. Phosphorus is within normal limits. Culture is positive for possible Pseudomonas species. Cultures are pending and are negative to date. Echocardiogram shows a 55% ejection fraction with stage II diastolic dysfunction. The left atrium is moderately enlarged. There is +1 MR and trivial TR. Right ventricular systolic pressure was estimated at 42 mmHg. His breathing is somewhat better but he continues to complain of shortness of breath. He tells me that he saw a certified personal finance counselor in [place] approximately 1 year ago and was told he does not have sleep apnea and he does not have COPD. He was recently in [facility] and was told by a liner machine operator helper that both his kidneys function. The left kidney on CT scan of the abdomen and pelvis done 04/08 shows severe gauge of the left kidney, likely secondary to renal artery stenosis. CT also shows extensive arterial disease. Complains that he cannot walk because of the pain in his legs when he tries to ambulate. He has seen a vascular surgeon in the past but could not be opened up. He has never been treated for anxiety or depression or had counselling. He started smoking again prior to admission to control anxiety because he could not breath. He used to follow with Dr. Rm and actual saw Dr. Rm for 8 years before they had a falling out. He now follows with Dr. Yu for cardiology. Tells me that he had a renal A doppler recently at [place]. Denies CP. He tells me that the pain in his penis is better today. He has not tried the B& O suppositories. Objective: - Physical Exam General: Alert, Oriented x3, Cooperative, - Every time I enter the room he is sleeping. HEENT: PERRLA, Normocephalic, - - he has facial telangiectasias. Oral: Moist Mucosa, no mucosal lesions Neck: No Nodes, Trachea Midline Lungs: No rhonchi, + Rales, not tachypneic today, Wheezes - mild, - - No accessory muscle use, he has symmetric chest rise, no significant conversational dyspnea at rest Cardiovascular: Regular rate, Regular Rhythm, Normal S1, Normal S2, No rub noted , No Gallop Abdomen: Bowel Sounds Present, Soft, Non Tender, Non-Distended, Obese Extremities: No cyanosis, No Calf Tenderness, Edema is much better today Skin: - - he has extensive bruising over the abdominal wall due to heparin injections. He has telangiectasias of the face and the chest Musculoskeletal: No Muscle Wasting, Arthritic Changes Neurological: Cranial nerves II-XII grossly intact, Neuro grossly intact Psych/Mental Status: Appropriate, cooperative - Physical Exam Vital Signs Temp Pulse Resp BP Pulse Ox 99.9 F H 92 18 131/64 H 97 04/09/18 02:09 04/09/18 07:25 04/09/18 07:25 04/09/18 06:28 04/09/18 08:09 Oxygen Flow Rate (L/min) 3.5 Oxygen Delivery Method Nasal Cannula Weight: 199 lb 8.293 oz Body Mass Index (BMI) 31.2 Intake and Output for Last 24 Hours 04/07/18 04/08/18 04/09/18 23:59 23:59 23:59 Intake Total 2027 / 2027 270 / 270 Output Total 1125 / 1125 700 / 700 Balance 903 / 903 -430 / -430 Laboratory Tests Past 24 Hrs 04/08/18 04/08/18 04/09/18 02:53 13:40 05:15 WBC RBC Hgb Hct MCV MCH MCHC RDW RDW Differential Plt Count MPV Immature Gran % (Auto) Neut % (Auto) Lymph % (Auto) [place] % (Auto) Eos % (Auto) Baso % (Auto) Absolute Neuts (auto) Absolute Lymphs (auto) Total Counted Differential Comment Sodium 135 L Potassium 3.5 Chloride 99 Carbon Dioxide 26.0 Anion Gap 10 BUN 28 H Creatinine 1.88 H Estim Creat Clear Calc 36.14 Est GFR (MDRD) Af Amer 46 L Est GFR (MDRD) Non-Af 38 L BUN/Creatinine Ratio 14.9 Glucose 127 H Calcium 7.9 L Phosphorus Magnesium B-Natriuretic Peptide Total Protein (PEP) Pending Albumin (PEP) Pending Globulin (PEP) Pending Albumin/Globulin (PEP) Pending Fgmrj-7-Myplhlgcs Pending Zirof-4-Tneqwuhmh Pending Beta Globulins Pending Gamma Globulins Pending M-Oh Pending Triglycerides Cholesterol LDL Cholesterol VLDL Cholesterol HDL Cholesterol PSA Screen 7.51 H Urine Total Protein Pending Urine Albumin Pending U Fujnl-4-Anewhuqm Pending U Fuuly-5-Jtcmqjvo Pending U Beta Globulin Pending U Gamma Globulin Pending U PEP M-Oh Pending IgG Pending IgA Pending IgM Pending 04/09/18 04/09/18 04/09/18 05:15 05:15 05:15 WBC 25.0 H RBC 2.72 L Hgb 8.2 L Hct 26.8 L MCV 98.5 H MCH 30.1 MCHC 30.6 L RDW 17.6 H RDW Differential 62.6 H Plt Count 267 MPV 9.4 Immature Gran % (Auto) 0.200 Neut % (Auto) 87.3 H Lymph % (Auto) 4.4 L [place] % (Auto) 7.9 Eos % (Auto) 0.1 Baso % (Auto) 0.1 Absolute Neuts (auto) 21.8 H Absolute Lymphs (auto) 1.11 Total Counted Not Reportable Differential Comment SCANNED Sodium 138 Potassium 3.6 Chloride 103 Carbon Dioxide 25.0 Anion Gap 10 BUN 35 H Creatinine 1.67 H Estim Creat Clear Calc 40.68 Est GFR (MDRD) Af Amer 53 L Est GFR (MDRD) Non-Af 44 L BUN/Creatinine Ratio 21.0 H Glucose 128 H Calcium 8.3 L Phosphorus 3.3 Magnesium 2.5 B-Natriuretic Peptide 1706.3 H Total Protein (PEP) Albumin (PEP) Globulin (PEP) Albumin/Globulin (PEP) Snzja-1-Plcqszkee Yrmfa-6-Jihqcybcj Beta Globulins Gamma Globulins M-Oh Triglycerides 72 Cholesterol 71 LDL Cholesterol 14 VLDL Cholesterol 14 HDL Cholesterol 43 PSA Screen Urine Total Protein Urine Albumin U Sebgp-9-Sommecpw U Krvzq-7-Augxazjz U Beta Globulin U Gamma Globulin U PEP M-Oh IgG IgA IgM Medical Necessity - Tobacco Use Smoking Status: Current every day smoker Assessment/Plan All Active Problems UTI (urinary tract infection) (Acute) Sepsis (Acute) Diastolic CHF (Acute) Respiratory failure with hypoxia (Acute) Impressions 1. acute diastolic CHF 2. sepsis - due to complicated UTI with in-dwelling grider catheter - due to bladder outlet obstruction. urine culture with possible Pseudomonas species 3. BPH with urinary tract obstruction 4. CAD 5. hx of CABG in 2010 - follow with a assistant manager in [place] - Dr. Yu 6. COPD - pt denies......He was told this by a Machine Operator Packaging that he saw in [place] 7. tobacco dependence 8. hx of alcohol abuse - PT is mildy prolonged and he has telangiectasias of the face and the chest which I suspect are due to chronic alcohol abuse. The liver is enlarged. He continues to drink but, not as much as in the past 9. CRF - stage 3 at least. Markedly atrophic left kidney 10. obesity 11. HTN 12. HLD 13. elevated PSA 13. Stage II diastolic dysfunction, moderate left atrial enlargement, elevated right ventricular systolic pressure at 42 consistent with pulmonary hypertension 15. suspected renal artery stenosis 16. PVD 17. anxiety/depression Continue the Bumex X 1 more day....Creat is improving with diuresis supplement the potassium to keep it around [address] Alaniz Consult Dr. Caicedo Start Prednisone 40 mg daily and then taper over the next 5-7 days. Has been using his ALbuterol inhaler 3-4 times a day. Tells me that he can not afford a steroid inhaler.....but, also tells me he does not have COPD? Obtain records from [facility] and from Dr. Yu....wonder if he had a Renal artery Doppler or a renal US? Consult to help with anxiety and depression and start Zoloft Convert to PO Bumex in the AM Would refer to Dr. Agosto for evaluation for claudication He has seen many different doctors in many different cities. I explained to him the continuity is everything in patients with multiple co-morbidities. He would like to get a IM PCP in [place] and is also will ing to see Dr. Alaniz for CRF and Dr. Caicedo for chronic lung disease. He will think about following up with Dr. Barrientos whom he has seen in the past. Spent 45 minutes with the patient and his family discussing diagnoses and plan for treatment and answering their questions Code Visit Inpatient E&M: 52301 Subs Hosp L3
--- NOTE | 2018-04-09 09:02 | PCM.CONS.U ---
Problem List (1) UTI (urinary tract infection) Status: Acute Qualifiers: Urinary tract infection type: catheter-associated UTI Indwelling urinary catheter type: indwelling urethral catheter Encounter type: subsequent encounter Qualified Code(s): T83.511D - Infection and inflammatory reaction due to indwelling urethral catheter, subsequent encounter; N39.0 - Urinary tract infection, site not specified Reason for Consult Date of Consultation: 04/09/18 Reason for Consultation: cath ass UTI History of Present Illness: The patient is a 67 year old male with multiple medical problems who I saw in the office after discharge from [facility] with a catheter, and [facility] it was reported the catheter was unable to be removed, he was on medical therapy for BPH with Flomax I added Proscar increase his Flomax and we pulled out the catheter for a voiding trial he failed the voiding trial and the catheter had to be replaced in my office the following day. He has quite significant medical problems with congestive heart failure shortness of breath not sure if he would tolerate prostate surgery so we are going to get cardiac clearance from his electronic gaming device supervisor before planning for surgery tentatively was to be planned the next week or so he then presented back to the hospital with a very high white blood count and an infection he has a catheter in place, currently he is on appropriate antibiotics clinically stable. Past Medical History Past Medical History (Chronic Problems): Chronic Problems HLD (hyperlipidemia) (Chronic) HTN (hypertension) (Chronic) PAD (peripheral artery disease) (Chronic) CAD (coronary artery disease) (Chronic) COPD (chronic obstructive pulmonary disease) (Chronic) Tobacco dependence (Chronic) CKD (chronic kidney disease) (Chronic) Leukocytosis (Chronic) Anemia (Chronic) BPH (benign prostatic hyperplasia) (Chronic) Allergies irbesartan [From Avapro] Adverse Reaction (Verified 04/07/18 20:54) Other zolpidem [From Ambien] Adverse Reaction (Verified 04/07/18 20:54) Other Home Medications: Ambulatory Orders Medication Instructions Recorded Aspirin [Aspirin, Baby] 81 mg PO DAILY@0800 01/28/18 Bumetanide 1 mg PO BID 01/28/18 Clopidogrel Bisulfate [Plavix] 75 mg PO DAILY 01/28/18 Metoprolol Succinate 100 mg PO DAILY 01/28/18 Ropinirole HCl [Requip] 1 mg PO DAILY 01/28/18 Rosuvastatin Calcium [Crestor] 40 mg PO DAILY 01/28/18 Spironolactone 50 mg PO DAILY 01/28/18 Tamsulosin HCl [Flomax] 0.4 mg PO BID 01/28/18 hydrALAZINE [Apresoline] 50 mg PO TID 01/28/18 Ferrous Sulfate 325 mg PO BIDCM #60 tab 01/30/18 Ipratropium/Albuterol Sulfate 3 ml INHALATION Q4H.RT #120 01/30/18 [Duoneb] ampul.neb Finasteride [Proscar] 5 mg PO DAILY 04/08/18 Potassium Chloride [K-Dur] 10 meq PO DAILY 04/08/18 Surgical History: coronary bypass surgery, tonsillectomy Psychiatric History: No pertinent psych hx Smoking Status: Current every day smoker - *Family History Maternal History Items: No pertinent history Paternal History Items: No pertinent history Review of Systems Constitutional: Reports: Fever. Denies: Chills, Weight Change HEENT: Denies: Head Aches, Sinus Congestion, Sinus Drainage Cardiovascular: Denies: Chest Pain, Palpitations Respiratory: Denies: Cough, Shortness of breath at rest, Sputum production Gastrointestinal: Denies: Abdominal Pain, Nausea, Vomiting Genitourinary: Reports: Retention. Denies: Dysuria Musculoskeletal: Denies: Joint Pain, Joint Tenderness Skin: Denies: Rash, Wounds Neurological: Denies: Numbness, Tingling, Focal weakness Psychiatric: Denies: Anxiety, Depression, Homicidal Ideations, Suicidal Ideations Hematologic/ Lymphatic: Denies: Easy Bruising, Easy Bleeding Physical Exam - Physical Exam Vital Signs Temp 99.9 F H 04/09/18 02:09 Pulse 92 04/09/18 07:25 Resp 18 04/09/18 07:25 BP 131/64 H 04/09/18 06:28 Pulse Ox 97 04/09/18 08:09 Intake & Output 04/07/18 04/08/18 04/09/18 23:59 23:59 23:59 Intake Total 2027 270 / 270 Output Total 1125 / 1125 700 / 700 Balance 903 / 903 -430 / -430 Weight: 90.5 kg Intake: Oral 860 / 860 270 / 270 IV fluid/meds 1168 / 1168 Output: Urine 1125 / 1125 700 / 700 General: Alert, Oriented x3 HEENT: Atraumatic Oral: Moist Mucosa Neck: No JVD Lungs: Normal air movement Abdomen: Soft, Obese Laboratory Tests Past 24 Hrs 04/08/18 04/08/18 04/09/18 02:53 13:40 05:15 WBC RBC Hgb Hct MCV MCH MCHC RDW RDW Differential Plt Count MPV Immature Gran % (Auto) Neut % (Auto) Lymph % (Auto) [place] % (Auto) Eos % (Auto) Baso % (Auto) Absolute Neuts (auto) Absolute Lymphs (auto) Total Counted Differential Comment Sodium 135 L Potassium 3.5 Chloride 99 Carbon Dioxide 26.0 Anion Gap 10 BUN 28 H Creatinine 1.88 H Estim Creat Clear Calc 36.14 Est GFR (MDRD) Af Amer 46 L Est GFR (MDRD) Non-Af 38 L BUN/Creatinine Ratio 14.9 Glucose 127 H Calcium 7.9 L Phosphorus Magnesium B-Natriuretic Peptide Total Protein (PEP) Pending Albumin (PEP) Pending Globulin (PEP) Pending Albumin/Globulin (PEP) Pending Dlnht-0-Wsgpcsqvu Pending Pvxnp-3-Qvhsdmjiv Pending Beta Globulins Pending Gamma Globulins Pending M-Oh Pending Triglycerides Cholesterol LDL Cholesterol VLDL Cholesterol HDL Cholesterol PSA Screen 7.51 H Urine Total Protein Pending Urine Albumin Pending U Qvyan-3-Kqkgoogn Pending U Latgq-8-Lixaqthc Pending U Beta Globulin Pending U Gamma Globulin Pending U PEP M-Oh Pending IgG Pending IgA Pending IgM Pending 04/09/18 04/09/18 04/09/18 05:15 05:15 05:15 WBC 25.0 H RBC 2.72 L Hgb 8.2 L Hct 26.8 L MCV 98.5 H MCH 30.1 MCHC 30.6 L RDW 17.6 H RDW Differential 62.6 H Plt Count 267 MPV 9.4 Immature Gran % (Auto) 0.200 Neut % (Auto) 87.3 H Lymph % (Auto) 4.4 L [place] % (Auto) 7.9 Eos % (Auto) 0.1 Baso % (Auto) 0.1 Absolute Neuts (auto) 21.8 H Absolute Lymphs (auto) 1.11 Total Counted Not Reportable Differential Comment SCANNED Sodium 138 Potassium 3.6 Chloride 103 Carbon Dioxide 25.0 Anion Gap 10 BUN 35 H Creatinine 1.67 H Estim Creat Clear Calc 40.68 Est GFR (MDRD) Af Amer 53 L Est GFR (MDRD) Non-Af 44 L BUN/Creatinine Ratio 21.0 H Glucose 128 H Calcium 8.3 L Phosphorus 3.3 Magnesium 2.5 B-Natriuretic Peptide 1706.3 H Total Protein (PEP) Albumin (PEP) Globulin (PEP) Albumin/Globulin (PEP) Ctlqq-6-Qwwctiwlu Bqgxj-3-Kjjnzpmvv Beta Globulins Gamma Globulins M-Oh Triglycerides 72 Cholesterol 71 LDL Cholesterol 14 VLDL Cholesterol 14 HDL Cholesterol 43 PSA Screen Urine Total Protein Urine Albumin U Bnepz-6-Zhecvmhm U Amcmt-9-Vnqgamvg U Beta Globulin U Gamma Globulin U PEP M-Oh IgG IgA IgM Assessment/Plan All Active Problems UTI (urinary tract infection) (Acute) Sepsis (Acute) Diastolic CHF (Acute) Respiratory failure with hypoxia (Acute) 67-year-old male who has multiple medical problems high risk for complications and is immunocompromised who had a catheter was replaced after was not able to urinate and presented to the hospital with an infection, cultures come back from the April 05 continue with antibiotics per the culture results. Want to leave the catheter in place, at this point continue with treatment of his infection hopefully his white count will resolve probably want to hold off on prostate surgery until his infection is completely cleared and also I had still pending cardiac clearance may consider an office procedure such as a microwave therapy given his cardiac risk for surgery.
--- NOTE | 2018-04-09 09:07 | CON.PCM_ITS ---
Problem List (1) UTI (urinary tract infection) Status: Acute Qualifiers: Urinary tract infection type: catheter-associated UTI Indwelling urinary catheter type: indwelling urethral catheter Encounter type: subsequent encounter Qualified Code(s): T83.511D - Infection and inflammatory reaction due to indwelling urethral catheter, subsequent encounter; N39.0 - Urinary tract infection, site not specified Reason for Consult Date of Consultation: 04/09/18 Reason for Consultation: cath ass UTI History of Present Illness: The patient is a 67 year old male with multiple medical problems who I saw in the office after discharge from [facility] with a catheter, and [facility] it was reported the catheter was unable to be removed, he was on medical therapy for BPH with Flomax I added Proscar increase his Flomax and we pulled out the catheter for a voiding trial he failed the voiding trial and the catheter had to be replaced in my office the following day. 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 Past Medical History Past Medical History (Chronic Problems): Chronic Problems HLD (hyperlipidemia) (Chronic) HTN (hypertension) (Chronic) PAD (peripheral artery disease) (Chronic) CAD (coronary artery disease) (Chronic) COPD (chronic obstructive pulmonary disease) (Chronic) Tobacco dependence (Chronic) CKD (chronic kidney disease) (Chronic) Leukocytosis (Chronic) Anemia (Chronic) BPH (benign prostatic hyperplasia) (Chronic) Allergies irbesartan [From Avapro] Adverse Reaction (Verified 04/07/18 20:54) Other zolpidem [From Ambien] Adverse Reaction (Verified 04/07/18 20:54) Other Home Medications: Ambulatory Orders Medication Instructions Recorded Aspirin [Aspirin, Baby] 81 mg PO DAILY@0800 01/28/18 Bumetanide 1 mg PO BID 01/28/18 Clopidogrel Bisulfate [Plavix] 75 mg PO DAILY 01/28/18 Metoprolol Succinate 100 mg PO DAILY 01/28/18 Ropinirole HCl [Requip] 1 mg PO DAILY 01/28/18 Rosuvastatin Calcium [Crestor] 40 mg PO DAILY 01/28/18 Spironolactone 50 mg PO DAILY 01/28/18 Tamsulosin HCl [Flomax] 0.4 mg PO BID 01/28/18 hydrALAZINE [Apresoline] 50 mg PO TID 01/28/18 Ferrous Sulfate 325 mg PO BIDCM #60 tab 01/30/18 Ipratropium/Albuterol Sulfate 3 ml INHALATION Q4H.RT #120 01/30/18 [Duoneb] ampul.neb Finasteride [Proscar] 5 mg PO DAILY 04/08/18 Potassium Chloride [K-Dur] 10 meq PO DAILY 04/08/18 Surgical History: coronary bypass surgery, tonsillectomy Psychiatric History: No pertinent psych hx Smoking Status: Current every day smoker - *Family History Maternal History Items: No pertinent history Paternal History Items: No pertinent history Review of Systems Constitutional: Reports: Fever. Denies: Chills, Weight Change HEENT: Denies: Head Aches, Sinus Congestion, Sinus Drainage Cardiovascular: Denies: Chest Pain, Palpitations Respiratory: Denies: Cough, Shortness of breath at rest, Sputum production Gastrointestinal: Denies: Abdominal Pain, Nausea, Vomiting Genitourinary: Reports: Retention. Denies: Dysuria Musculoskeletal: Denies: Joint Pain, Joint Tenderness Skin: Denies: Rash, Wounds Neurological: Denies: Numbness, Tingling, Focal weakness Psychiatric: Denies: Anxiety, Depression, Homicidal Ideations, Suicidal Ideations Hematologic/ Lymphatic: Denies: Easy Bruising, Easy Bleeding Physical Exam - Physical Exam Vital Signs Temp 99.9 F H 04/09/18 02:09 Pulse 92 04/09/18 07:25 Resp 18 04/09/18 07:25 BP 131/64 H 04/09/18 06:28 Pulse Ox 97 04/09/18 08:09 Intake & Output 04/07/18 04/08/18 04/09/18 23:59 23:59 23:59 Intake Total 2027 270 / 270 Output Total 1125 / 1125 700 / 700 Balance 903 / 903 -430 / -430 Weight: 90.5 kg Intake: Oral 860 / 860 270 / 270 IV fluid/meds 1168 / 1168 Output: Urine 1125 / 1125 700 / 700 General: Alert, Oriented x3 HEENT: Atraumatic Oral: Moist Mucosa Neck: No JVD Lungs: Normal air movement Abdomen: Soft, Obese Laboratory Tests Past 24 Hrs 04/08/18 04/08/18 04/09/18 02:53 13:40 05:15 WBC RBC Hgb Hct MCV MCH MCHC RDW RDW Differential Plt Count MPV Immature Gran % (Auto) Neut % (Auto) Lymph % (Auto) [place] % (Auto) Eos % (Auto) Baso % (Auto) Absolute Neuts (auto) Absolute Lymphs (auto) Total Counted Differential Comment Sodium 135 L Potassium 3.5 Chloride 99 Carbon Dioxide 26.0 Anion Gap 10 BUN 28 H Creatinine 1.88 H Estim Creat Clear Calc 36.14 Est GFR (MDRD) Af Amer 46 L Est GFR (MDRD) Non-Af 38 L BUN/Creatinine Ratio 14.9 Glucose 127 H Calcium 7.9 L Phosphorus Magnesium B-Natriuretic Peptide Total Protein (PEP) Pending Albumin (PEP) Pending Globulin (PEP) Pending Albumin/Globulin (PEP) Pending Fkmff-1-Rrhmptghj Pending Qnsor-0-Xnehqgvrw Pending Beta Globulins Pending Gamma Globulins Pending M-Oh Pending Triglycerides Cholesterol LDL Cholesterol VLDL Cholesterol HDL Cholesterol PSA Screen 7.51 H Urine Total Protein Pending Urine Albumin Pending U Falaf-5-Ajliyoor Pending U Saknl-0-Gqiozpqd Pending U Beta Globulin Pending U Gamma Globulin Pending U PEP M-Oh Pending IgG Pending IgA Pending IgM Pending 04/09/18 04/09/18 04/09/18 05:15 05:15 05:15 WBC 25.0 H RBC 2.72 L Hgb 8.2 L Hct 26.8 L MCV 98.5 H MCH 30.1 MCHC 30.6 L RDW 17.6 H RDW Differential 62.6 H Plt Count 267 MPV 9.4 Immature Gran % (Auto) 0.200 Neut % (Auto) 87.3 H Lymph % (Auto) 4.4 L [place] % (Auto) 7.9 Eos % (Auto) 0.1 Baso % (Auto) 0.1 Absolute Neuts (auto) 21.8 H Absolute Lymphs (auto) 1.11 Total Counted Not Reportable Differential Comment SCANNED Sodium 138 Potassium 3.6 Chloride 103 Carbon Dioxide 25.0 Anion Gap 10 BUN 35 H Creatinine 1.67 H Estim Creat Clear Calc 40.68 Est GFR (MDRD) Af Amer 53 L Est GFR (MDRD) Non-Af 44 L BUN/Creatinine Ratio 21.0 H Glucose 128 H Calcium 8.3 L Phosphorus 3.3 Magnesium 2.5 B-Natriuretic Peptide 1706.3 H Total Protein (PEP) Albumin (PEP) Globulin (PEP) Albumin/Globulin (PEP) Ufmsq-2-Pkivlicjh Inqnc-8-Rtirkldam Beta Globulins Gamma Globulins M-Oh Triglycerides 72 Cholesterol 71 LDL Cholesterol 14 VLDL Cholesterol 14 HDL Cholesterol 43 PSA Screen Urine Total Protein Urine Albumin U Nrnfo-1-Knrboaac U Tjyig-2-Zwsybjaz U Beta Globulin U Gamma Globulin U PEP M-Oh IgG IgA IgM Assessment/Plan All Active Problems UTI (urinary tract infection) (Acute) Sepsis (Acute) Diastolic CHF (Acute) Respiratory failure with hypoxia (Acute) 67-year-old male who has multiple medical problems high risk for complications and is immunocompromised who had a catheter was replaced after was not able to urinate and presented to the hospital with an infection, cultures come back from the April 05 continue with antibiotics per the culture results. Want to leave the catheter in place, at this point continue with treatment of his infection hopefully his white count will resolve probably want to hold off on prostate surgery until his infection is completely cleared and also I had still pending cardiac clearance may consider an office procedure such as a microwave therapy given his cardiac risk for surgery.
[2018-04-09] MEDS: Magnesium Oxide 400 MG Tablet PO ×2 (09:22→22:09)
[2018-04-09] MEDS: Metoprolol(XL)Succ 100 MG Tablet PO (09:22)
[2018-04-09] MEDS: Finasteride 5 MG Tablet PO (09:22)
[2018-04-09] MEDS: Tamsulosin HCl 0.4 MG Capsule PO ×2 (09:22→22:12)
[2018-04-09] MEDS: Aspirin 81 MG TAB.CHEW PO (09:22)
[2018-04-09] MEDS: Clopidogrel Bisulfate 75 MG Tablet PO (09:22)
[2018-04-09] MEDS: amLODIPine 5 MG Tablet PO (09:22)
[2018-04-09] MEDS: Fluconazole 100 MG Tablet 200 MG PO (09:22)
[2018-04-09] MEDS: Ferrous Sulfate 325 MG Tablet PO ×2 (09:22→17:38)
[2018-04-09] MEDS: Bumetanide 1 MG/4 ML Vial 2 MG IV ×2 (09:23→17:39)
[2018-04-09] MEDS: 0.9% NaCl Peripheral Flush Adult/Peds IV ×2 (09:38→17:43)
[2018-04-09] MEDS: guaiFENesin 600 MG Tablet PO ×2 (10:34→22:11)
[2018-04-09] MEDS: Docusate Sodium 100 MG Capsule 200 MG PO (10:35)
--- NOTE | 2018-04-09 16:35 | PCA ---
sent fax to [facility] for release of medical records. Couldnt do dr. hurley due to weekend and cant call office for number
--- NOTE | 2018-04-09 16:41 | PCA ---
Authorization signed and placed in chart ready to be faxed to doctors office tuesday
[2018-04-09] MEDS: predniSONE 20 MG Tablet 40 MG PO (17:33)
[2018-04-09] MEDS: Spironolactone 50 MG Tablet PO (22:07)
[2018-04-09] MEDS: Pramipexole Di-HCl 0.5 MG Tablet PO (22:09)
[2018-04-09] MEDS: Atorvastatin Calcium 80 MG Tablet PO (22:17)
--- NOTE | 2018-04-09 22:28 | NURSING ---
when dayshift rn rounded with this rn pt was shown how much fluid he could drink until midnight based on his fluid restriction, pt expressed understanding. pt drank it all and now wants more explained fluid restriction again & offered mouth swabs pt refused. pt aware he can have more at midnight. pt had fruit for his snack.
[2018-04-10] VITALS (11 sets, daily range): BP systolic 136–147; BP diastolic 49–75; PULSE 58–75; RESP 16–20; TEMP 36.7–36.9; O2SAT 96–99
[2018-04-10] MEDS: Ipratropium/Albuterol Sulfate 3 ML AMPUL.NEB INHALATION ×3 (02:25→11:13)
[2018-04-10] MEDS: Heparin Injection (Vial) 5,000 UNIT/ML VIAL 5000 UNIT SC (05:24)
[2018-04-10] MEDS: Acetaminophen 325 MG Tablet 650 MG PO ×2 (05:26→11:50)
[2018-04-10] MEDS: hydrALAZINE 50 MG Tablet PO (05:27)
[2018-04-10] MEDS: 0.9% NaCl Peripheral Flush Adult/Peds IV (05:27)
[2018-04-10] MEDS: Magnesium Hydroxide 30 ML UDC PO (05:27)
[2018-04-10 06:45] LABS: Anion Gap 11 (5-15); BUN 36 mg/dL (7-18); BUN/Creat Ratio 26.9 RATIO (10-20); Calcium,Total 8.5 mg/dL (8.5-10.1); Chloride 104 mmol/L (98-107); Creatinine, Serum 1.34 mg/dL (0.70-1.30); EST Glomerular Filtration Rate 57 mL/min (>60); Est Glom Filt Rate - Afr Amer 69 mL/min (>60); Glucose 151 mg/dL (74-106); Potassium 3.9 mmol/L (3.5-5.1); Sodium Level 137 mmol/L (136-145)
[2018-04-10 06:49] LABS: Absolute Lymphocyte Count 0.51 X10^3/ul (0.83-4.51); Absolute Neutrophil Count 12.4 X10^3/uL (2.0-7.7); Basophil# 0.01 X10^3/uL; Basophil% 0.1 % (0-1); Differential Indicated SCAN CRITERIA MET; Hemoglobin 8.9 g/dl (13.0-16.5); Lymphocyte # 0.51 X10^3/ul (4.0); Lymphocyte % 3.8 % (19-41); Mean Corp Hgb Conc 30.7 g/gl (32-36); Mean Corpuscular Hgb 29.7 pg (27.0-32.0); Mean Corpuscular Volume 96.7 fL (80-94); Mean Platelet Vol. 9.9 fl (6.2-12.0); Monocyte# 0.66 X10^3/uL; Monocyte% 4.9 % (0-10); Neutrophil # 12.36 X10^3/uL (2.7-7.7); Neutrophil % 90.9 % (47-70); POSITIVE COUNT NO; POSITIVE DIFFERENTIAL YES; POSITIVE MORPHOLOGY NO; Platelet Count 251 K/mm3 (150-450); RBC Distribution Width CV 17.4 % (11.6-14.6); RBC Distribution Width SD 60.8 fl (35.1-43.9); White Blood Count 13.6 K/mm3 (4.4-11.0)
[2018-04-10 07:10] LABS: Differential Comment SCANNED
[2018-04-10] MEDS: Aspirin 81 MG TAB.CHEW PO (07:42)
[2018-04-10] MEDS: Ferrous Sulfate 325 MG Tablet PO (07:42)
[2018-04-10] MEDS: predniSONE 20 MG Tablet 40 MG PO (07:42)
--- NOTE | 2018-04-10 08:14 | PCA ---
authorization for medical records faxed to dr. carley hurley office fax number is : [phone] office number is [phone]
--- NOTE | 2018-04-10 08:16 | PCM.CONS.GEN ---
Problem List (1) UTI (urinary tract infection) Status: Acute Qualifiers: Urinary tract infection type: catheter-associated UTI Indwelling urinary catheter type: indwelling urethral catheter Encounter type: subsequent encounter Qualified Code(s): T83.511D - Infection and inflammatory reaction due to indwelling urethral catheter, subsequent encounter; N39.0 - Urinary tract infection, site not specified (2) Sepsis Status: Acute (3) Diastolic CHF Status: Acute Qualifiers: Heart failure chronicity: acute on chronic Qualified Code(s): I50.33 - Acute on chronic diastolic (congestive) heart failure (4) HLD (hyperlipidemia) Status: Chronic (5) HTN (hypertension) Status: Chronic (6) PAD (peripheral artery disease) Status: Chronic (7) CAD (coronary artery disease) Status: Chronic (8) Tobacco dependence Status: Chronic (9) CKD (chronic kidney disease) Status: Chronic Qualifiers: Chronic kidney disease stage: stage 3 (moderate) Qualified Code(s): N18.3 - Chronic kidney disease, stage 3 (moderate) (10) Anemia Status: Chronic (11) BPH (benign prostatic hyperplasia) Status: Chronic Reason for Consult Date of Consultation: 04/10/18 Reason for Consultation: COPD History of Present Illness: The patient is a 67 year old M with a past medical history as below, presented to the ED on 04/07/18 with complaints of penile pain secondary to Charles catheter and low urinary output. Patient has had the catheter for about a week, inserted in [place]. Was removed by Dr. Villa on the in his office, however had to be replaced this morning secondary to decreased output. Patient was in the ER on 04/05 with the similar complaints and had his Charles irrigated. He is scheduled to see Dr. Villa this week with potential upcoming surgery for bladder outlet obstruction. The patient was given Zosyn and IV fluids, however became short of breath so fluids were decreased. He was placed on supplemental oxygen for comfort only. He has not had any desaturations. I am not quite sure why the patient has been on up to 4 L of oxygen supplementation, other than the fact it makes him feel better. Initial vitals BP BP 144/69, pulse 100, RR 22, 101.3?F, and 97% on room air. Blood work revealed a leukocytosis of 30,500, hemoglobin of 8.8 (chronic) and hematocrit 27.5. Chemistry revealed sodium of 130, chloride 96, BUN of 26 and creatinine 2.08. BNP was done on the and was elevated at 1195.0. Albumin is low at 2.7. PSA is 7.51. A urinalysis was repeated from the and showed protein, occult blood, and 500 of leukocytes. There were no nitrates. PT was 16 and INR 1.3. Plain film chest x-ray showed chronic interstitial markings and resolution of bilateral effusions and/or infiltrates. There was no acute process. Patient was given IV fluids and sent to the medical surgical floor for further evaluation and management. Pulmonology was consulted for suspected COPD. The patient is currently maintaining appropriate saturations on 2 L of oxygen supplementation. He is afebrile this morning and blood pressure is stable. He was diuresed with Bumex and start on prednisone. CT the abdomen and pelvis was obtained secondary to urinary tract obstruction and renal failure. This showed a right lower lobe consolidation and small right effusion, questionable pneumonia. There is a left pleural effusion and left lower lobe atelectasis. Dense coronary calcification s/p sternotomy, mild hepatomegaly, densely calcified vessels of the abdomen including critical calcification and stenosis of the bilateral renal arteries. Since prior study in 2003 there is interval severe atrophy of the left kidney. In addition there is marked worsening of the calcification of the celiac and inferior mesenteric arteries. Significant stenosis of the left common femoral artery. Wall thickening of the bladder suspicious for cystitis, mild enlargement of the prostate. There is degenerative changes and osteoblastic lesion in the left ilium that follow-up is recommended with bone scan for concerning underlying osteoblastic metastatic disease. Echocardiogram showed an estimated EF of 55%, stage II diastolic dysfunction, a moderately enlarged left atrium, mild MVI and trivial TVI, RVSP estimated 42 mmHg. The patient followed with Dr. Quesada in [facility] for pulmonology, has not seen him in about 6 months. Had a sleep study done at [facility] as well. He was told he did not have RAVEN or COPD. He still thinks he may have sleep apnea secondary to daytime fatigue and his stating he gasps for air. He has never required any home oxygen. Denies any shortness of breath at rest, nocturia, hemoptysis, or epistaxis. The patient has a minimum [id number] history of smoking. He recently quit 3 months ago, however started smoking again 2 days prior to presentation. He does have a chronic cough is occasional, typically produces some clear sputum in the mornings but otherwise no sputum production. Patient reports he was previously put on Advair but was unable to pay $300, he was switched to several other inhalers with the same results. He currently is only on Ventolin and uses this approximately 3-4 times a day. He does report improvement in his breathing with use. Past Medical History Past Medical History (Chronic Problems): Chronic Problems HLD (hyperlipidemia) (Chronic) HTN (hypertension) (Chronic) PAD (peripheral artery disease) (Chronic) CAD (coronary artery disease) (Chronic) COPD (chronic obstructive pulmonary disease) (Chronic) Tobacco dependence (Chronic) CKD (chronic kidney disease) (Chronic) Leukocytosis (Chronic) Anemia (Chronic) BPH (benign prostatic hyperplasia) (Chronic) Allergies irbesartan [From Avapro] Adverse Reaction (Verified 04/07/18 20:54) Other zolpidem [From Ambien] Adverse Reaction (Verified 04/07/18 20:54) Other Home Medications: Ambulatory Orders Medication Instructions Recorded Aspirin [Aspirin, Baby] 81 mg PO DAILY@0800 01/28/18 Bumetanide 1 mg PO BID 01/28/18 Clopidogrel Bisulfate [Plavix] 75 mg PO DAILY 01/28/18 Metoprolol Succinate 100 mg PO DAILY 01/28/18 Ropinirole HCl [Requip] 1 mg PO DAILY 01/28/18 Rosuvastatin Calcium [Crestor] 40 mg PO DAILY 01/28/18 Spironolactone 50 mg PO DAILY 01/28/18 Tamsulosin HCl [Flomax] 0.4 mg PO BID 01/28/18 hydrALAZINE [Apresoline] 50 mg PO TID 01/28/18 Ferrous Sulfate 325 mg PO BIDCM #60 tab 01/30/18 Ipratropium/Albuterol Sulfate 3 ml INHALATION Q4H.RT #120 01/30/18 [Duoneb] ampul.neb Finasteride [Proscar] 5 mg PO DAILY 04/08/18 Potassium Chloride [K-Dur] 10 meq PO DAILY 04/08/18 Surgical History: coronary bypass surgery, tonsillectomy Psychiatric History: Anxiety, Depression Lives: Spouse/ Significant Other Smoking Status: Current every day smoker Tobacco Use: Cigarettes Alcohol: Occasional Drugs: None - *Family History Maternal History Items: No pertinent history Paternal History Items: No pertinent history Review of Systems Constitutional: Reports: Weakness, Fatigue. Denies: Anorexia, Chills, Fever, Night Sweats, Malaise, Weight Change Eyes: Denies: Vision Change HEENT: Reports: Nasal Congestion. Denies: Difficulty Swallowing, Head Aches, Post Nasal Drip, Sinus Congestion, Sinus Drainage, Sore Throat Cardiovascular: Reports: Edema. Denies: Chest Pain, Chest Tightness, Light Headedness, Orthopnea, Palpitations, Paroxysmal Noc. Dyspnea, Syncope Respiratory: Reports: Cough - Occasional, Shortness of breath upon exertion, Sputum production - In mornings, Wheezing - Intermittently. Denies: Hemoptysis, Shortness of breath at rest Gastrointestinal: Denies: Abdominal Pain, Constipation, Diarrhea, Dyspepsia, Hematemesis, Hematochezia, Nausea, Melena, Vomiting Genitourinary: Reports: Dysuria, Hematuria, Retention. Denies: Nocturia Musculoskeletal: Reports: Joint stiffness. Denies: Back Pain, Neck Pain Skin: Denies: Rash, Wounds Neurological: Reports: Numbness, Tingling. Denies: Balance problems, Change in Speech, Confusion, Difficulty swallowing, Focal weakness, Tremor, Seizures Psychiatric: Reports: Anxiety, Depression. Denies: Suicidal Ideations Endocrine: Denies: Change in Body Habitus, Polydipsia, Polyuria Hematologic/ Lymphatic: Reports: Anemia, Easy Bruising, Easy Bleeding. Denies: Adenopathy, Hx of blood clot Patient Problems: Active and Suspected Problems UTI (urinary tract infection) (Acute) Sepsis (Acute) Acute respiratory failure with hypoxia (Acute) Subjective: Patient was seen and examined. Denies any shortness of breath, chest pain, sputum production, or cough at this time. Reports wearing oxygen because it makes him feel better, not necessarily short of breath. Objective: Clinical Impression(s) from Imaging Studies Chest X-Ray 04/07/18 23:00 IMPRESSION: Status post sternotomy. Consider mild edema. Cannot entirely exclude underlying chronic lung disease. Electronically Signed: Stephanie Martínez MD at 23:53 EDT Tel , Service support , Chest X-Ray 04/08/18 06:45 IMPRESSION: Post sternotomy. Trace left effusion atelectasis and/or infiltrate. Trace right lower lobe atelectasis. Mild interstitial prominence or mild vascular congestion. Electronically Signed: Stephanie Martínez MD at 9:23 EDT Tel , Service support , Abdomen/Pelvis CT 04/08/18 06:48 IMPRESSION: Right lower lobe consolidation small right effusion consider possible pneumonia. Left pleural effusion and left lower lobe atelectasis. Dense coronary calcification status post sternotomy. Mild hepatomegaly. Densely calcified vessels of the abdomen is detailed above including critical calcification and stenosis of the bilateral renal arteries. Since the prior study 2003 there is been interval severe atrophy of the left kidney likely due to stenosis of the renal artery. In addition there is marked worsening of the calcification of the celiac and inferior mesenteric arteries. Significant stenosis of the left common femoral artery Wall thickening of the bladder suspicious for cystitis. Mild enlargement of the prostate. Degenerative changes of thoracolumbar spine Osteoblastic lesion in the left ilium recommend follow-up bone scan. Although this may represent a focus of sclerosis interval development raises concern for underlying osteoblastic metastatic disease. Electronically Signed: Stephanie Martínez MD at 9:05 EDT Tel , Service support , - Physical Exam General: Alert, Oriented x3, Cooperative, No apparent distress, Well developed, Well nourished HEENT: Atraumatic, Normocephalic Oral: Moist Mucosa, No Gingival or Mucosal Lesions/ Ulcerations, - - Poor dental hygiene Neck: Supple, No Nodes, Trachea Midline Lungs: No rhonchi, No wheeze, No rales, Diminished, - - Symmetric expansion, no dullness to percussion Cardiovascular: Normal S1, Normal S2, No murmurs, No rub noted, No Gallop, - - Regular rhythm with ectopy Abdomen: Bowel Sounds Present, Soft, Non Tender, Hyperactive Bowel Sounds, Obese, Hernia Extremities: No clubbing, No cyanosis, Capillary Refill Less than 3 Seconds, Edema, - - Venous stasis changes Skin: No rashes, No breakdown Musculoskeletal: No Tenderness to Palpation of Joints or Extremities, No Muscle Wasting Lymphatic: No Cervical, Supraclavicular, or Inguinal Adenopathy Neurological: Cranial nerves II-XII grossly intact, Neuro grossly intact, Motor Exam 5/5 strength throughout, - - Decreased sensation to bilateral lower extremities, chronic Psych/Mental Status: Alert and oriented to time, place, person, mood and affect Vital Signs Temp Pulse Resp BP Pulse Ox 98.4 F 62 16 142/58 H 99 04/10/18 02:31 04/10/18 07:17 04/10/18 07:17 04/10/18 05:27 04/10/18 07:17 Oxygen Flow Rate (L/min) 2 Oxygen Delivery Method Nasal Cannula Weight: 199 lb 8.293 oz Body Mass Index (BMI) 31.2 Intake and Output for Last 24 Hours 04/08/18 04/09/18 04/10/18 23:59 23:59 23:59 Intake Total 2027 / 2027 1170 / 1170 250 / 250 Output Total 1125 / 1125 1475 / 1475 725 / 725 Balance 903 / 903 -305 / -305 -475 / -475 Laboratory Tests Past 24 Hrs 04/10/18 04/10/18 06:08 06:08 WBC 13.6 H RBC 3.00 L Hgb 8.9 L Hct 29.0 L MCV 96.7 H MCH 29.7 MCHC 30.7 L RDW 17.4 H RDW Differential 60.8 H Plt Count 251 MPV 9.9 Immature Gran % (Auto) 0.300 Neut % (Auto) 90.9 H Lymph % (Auto) 3.8 L [place] % (Auto) 4.9 Eos % (Auto) 0.0 Baso % (Auto) 0.1 Absolute Neuts (auto) 12.4 H Absolute Lymphs (auto) 0.51 L Total Counted Not Reportable Differential Comment SCANNED Sodium 137 Potassium 3.9 Chloride 104 Carbon Dioxide 22.0 Anion Gap 11 BUN 36 H Creatinine 1.34 H Estim Creat Clear Calc 50.70 Est GFR (MDRD) Af Amer 69 Est GFR (MDRD) Non-Af 57 L BUN/Creatinine Ratio 26.9 H Glucose 151 H Calcium 8.5 Assessment/Plan All Active Problems UTI (urinary tract infection) (Acute) Sepsis (Acute) Acute respiratory failure with hypoxia (Acute) Diastolic CHF (Acute) Respiratory failure with hypoxia (Acute) RECOMMENDATIONS 1. Wean oxygen supplementation to keep saturations later than 88% 2. Encourage incentive spirometer 3. Increase activity as tolerated, PT/OT 4. Continue aerosols 5. Discontinue steroids 6. Obtain records from Dr. Quesada's office in [facility] 7. Ambulatory pulse ox prior to discharge 8. Patient would like to transfer care to pulmonary medicine of [place], please set up an appointment for 2 weeks with SHIPPING CLERK/ADMIN. He will likely need repeat pulmonary function tests and a pulmonary stress test, this can be set up as an outpatient. Medications can be adjusted as an outpatient as well to optimize pulmonary status. IMPRESSIONS 1. Sepsis secondary to complicated UTI Improved, leukocytosis is resolving. Currently on cefepime. Pulmonary urine culture showing possible Pseudomonas species. 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 There are plans for outpatient procedure with Dr. Villa for urinary outlet obstruction after the infection has cleared. Patient is now afebrile and hemodynamically stable. 2. Acute renal failure Continues to improve, diuresed with Bumex. Cumulative fluid balance of +123 mL. Patient does have atrophic left kidney and CT the abdomen/pelvis showed severe renal stenosis. Nephrology is following. No indication for renal replacement therapy at this time. 3. Acute on chronic diastolic CHF Also improved. IV Bumex. 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 Yu [place], [place]. 4. Presumed COPD Records from Dr. Quesada are not available at this time. These were requested. The patient denies any history of COPD, however was put on Advair and Ventolin as an outpatient but discontinued Advair secondary to financial reasons. Again, patient will require repeat pulmonary function tests and a pulmonary stress test as an outpatient to quantify and clarify his lung function. Hopefully, his overall breathing can be optimized with routine follow-up as an outpatient. 5. Tobacco abuse Encouraged ongoing smoking cessation. Patient has recently relapsed and started smoking again, despite feeling short of breath with exertion. He denies need for nicotine replacement therapy at this time. Thank for the opportunity to participate in this patient's care, please do not hesitate contact us with any further questions or concerns. This note was generated with [employer] software. It may contain incorrect words, spelling, and punctuation that were not noted in checking the note before signing.
--- NOTE | 2018-04-10 08:20 | PCA ---
pts medical records obtained this morning from [facility]
--- NOTE | 2018-04-10 08:25 | CON.PCM_ITS ---
Problem List (1) UTI (urinary tract infection) Status: Acute Qualifiers: Urinary tract infection type: catheter-associated UTI Indwelling urinary catheter type: indwelling urethral catheter Encounter type: subsequent encounter Qualified Code(s): T83.511D - Infection and inflammatory reaction due to indwelling urethral catheter, subsequent encounter; N39.0 - Urinary tract infection, site not specified (2) Sepsis Status: Acute (3) Diastolic CHF Status: Acute Qualifiers: Heart failure chronicity: acute on chronic Qualified Code(s): I50.33 - Acute on chronic diastolic (congestive) heart failure (4) HLD (hyperlipidemia) Status: Chronic (5) HTN (hypertension) Status: Chronic (6) PAD (peripheral artery disease) Status: Chronic (7) CAD (coronary artery disease) Status: Chronic (8) Tobacco dependence Status: Chronic (9) CKD (chronic kidney disease) Status: Chronic Qualifiers: Chronic kidney disease stage: stage 3 (moderate) Qualified Code(s): N18.3 - Chronic kidney disease, stage 3 (moderate) (10) Anemia Status: Chronic (11) BPH (benign prostatic hyperplasia) Status: Chronic Reason for Consult Date of Consultation: 04/10/18 Reason for Consultation: COPD History of Present Illness: The patient is a 67 year old M with a past medical history as below, presented to the ED on 04/07/18 with complaints of penile pain secondary to Charles catheter and low urinary output. Patient has had the catheter for about a week, inserted in [place]. Was removed by Dr. Villa on the in his office, however had to be replaced this morning secondary to decreased output. Patient was in the ER on 04/05 with the similar complaints and had his Charles irrigated. He is scheduled to see Dr. Villa this week with potential upcoming surgery for bladder outlet obstruction. The patient was given Zosyn and IV fluids, however became short of breath so fluids were decreased. He was placed on supplemental oxygen for comfort only. He has not had any desaturations. I am not quite sure why the patient has been on up to 4 L of oxygen supplementation, other than the fact it makes him feel better. Initial vitals BP BP 144/69, pulse 100, RR 22, 101.3?F, and 97% on room air. Blood work revealed a leukocytosis of 30,500, hemoglobin of 8.8 (chronic) and hematocrit 27.5. Chemistry revealed sodium of 130, chloride 96, BUN of 26 and creatinine 2.08. BNP was done on the and was elevated at 1195.0. Albumin is low at 2.7. PSA is 7.51. A urinalysis was repeated from the and showed protein, occult blood, and 500 of leukocytes. There were no nitrates. PT was 16 and INR 1.3. Plain film chest x-ray showed chronic interstitial markings and resolution of bilateral effusions and/or infiltrates. There was no acute process. Patient was given IV fluids and sent to the medical surgical floor for further evaluation and management. Pulmonology was consulted for suspected COPD. The patient is currently maintaining appropriate saturations on 2 L of oxygen supplementation. He is afebrile this morning and blood pressure is stable. He was diuresed with Bumex and start on prednisone. CT the abdomen and pelvis was obtained secondary to urinary tract obstruction and renal failure. This showed a right lower lobe consolidation and small right effusion, questionable pneumonia. There is a left pleural effusion and left lower lobe atelectasis. Dense coronary calcification s/p sternotomy, mild hepatomegaly, densely calcified vessels of the abdomen including critical calcification and stenosis of the bilateral renal arteries. Since prior study in 2003 there is interval severe atrophy of the left kidney. In addition there is marked worsening of the calcification of the celiac and inferior mesenteric arteries. Significant stenosis of the left common femoral artery. Wall thickening of the bladder suspicious for cystitis, mild enlargement of the prostate. There is degenerative changes and osteoblastic lesion in the left ilium that follow-up is recommended with bone scan for concerning underlying osteoblastic metastatic disease. Echocardiogram showed an estimated EF of 55%, stage II diastolic dysfunction, a moderately enlarged left atrium, mild MVI and trivial TVI, RVSP estimated 42 mmHg. The patient followed with Dr. Quesada in [facility] for pulmonology, has not seen him in about 6 months. Had a sleep study done at [facility] as well. He was told he did not have RAVEN or COPD. He still thinks he may have sleep apnea secondary to daytime fatigue and his stating he gasps for air. He has never required any home oxygen. Denies any shortness of breath at rest , nocturia, hemoptysis, or epistaxis. The patient has a minimum [id number] history of smoking. He recently quit 3 months ago, however started smoking again 2 days prior to presentation. He does have a chronic cough is occasional , typically produces some clear sputum in the mornings but otherwise no sputum production. Patient reports he was previously put on Advair but was unable to pay $300, he was switched to several other inhalers with the same results. He currently is only on Ventolin and uses this approximately 3-4 times a day. He does report improvement in his breathing with use. Past Medical History Past Medical History (Chronic Problems): Chronic Problems HLD (hyperlipidemia) (Chronic) HTN (hypertension) (Chronic) PAD (peripheral artery disease) (Chronic) CAD (coronary artery disease) (Chronic) COPD (chronic obstructive pulmonary disease) (Chronic) Tobacco dependence (Chronic) CKD (chronic kidney disease) (Chronic) Leukocytosis (Chronic) Anemia (Chronic) BPH (benign prostatic hyperplasia) (Chronic) Allergies irbesartan [From Avapro] Adverse Reaction (Verified 04/07/18 20:54) Other zolpidem [From Ambien] Adverse Reaction (Verified 04/07/18 20:54) Other Home Medications: Ambulatory Orders Medication Instructions Recorded Aspirin [Aspirin, Baby] 81 mg PO DAILY@0800 01/28/18 Bumetanide 1 mg PO BID 01/28/18 Clopidogrel Bisulfate [Plavix] 75 mg PO DAILY 01/28/18 Metoprolol Succinate 100 mg PO DAILY 01/28/18 Ropinirole HCl [Requip] 1 mg PO DAILY 01/28/18 Rosuvastatin Calcium [Crestor] 40 mg PO DAILY 01/28/18 Spironolactone 50 mg PO DAILY 01/28/18 Tamsulosin HCl [Flomax] 0.4 mg PO BID 01/28/18 hydrALAZINE [Apresoline] 50 mg PO TID 01/28/18 Ferrous Sulfate 325 mg PO BIDCM #60 tab 01/30/18 Ipratropium/Albuterol Sulfate 3 ml INHALATION Q4H.RT #120 01/30/18 [Duoneb] ampul.neb Finasteride [Proscar] 5 mg PO DAILY 04/08/18 Potassium Chloride [K-Dur] 10 meq PO DAILY 04/08/18 Surgical History: coronary bypass surgery, tonsillectomy Psychiatric History: Anxiety, Depression Lives: Spouse/ Significant Other Smoking Status: Current every day smoker Tobacco Use: Cigarettes Alcohol: Occasional Drugs: None - *Family History Maternal History Items: No pertinent history Paternal History Items: No pertinent history Review of Systems Constitutional: Reports: Weakness, Fatigue. Denies: Anorexia, Chills, Fever, Night Sweats, Malaise, Weight Change Eyes: Denies: Vision Change HEENT: Reports: Nasal Congestion. Denies: Difficulty Swallowing, Head Aches, Post Nasal Drip, Sinus Congestion, Sinus Drainage, Sore Throat Cardiovascular: Reports: Edema. Denies: Chest Pain, Chest Tightness, Light Headedness, Orthopnea, Palpitations, Paroxysmal Noc. Dyspnea, Syncope Respiratory: Reports: Cough - Occasional, Shortness of breath upon exertion, Sputum production - In mornings, Wheezing - Intermittently. Denies: Hemoptysis , Shortness of breath at rest Gastrointestinal: Denies: Abdominal Pain, Constipation, Diarrhea, Dyspepsia, Hematemesis, Hematochezia, Nausea, Melena, Vomiting Genitourinary: Reports: Dysuria, Hematuria, Retention. Denies: Nocturia Musculoskeletal: Reports: Joint stiffness. Denies: Back Pain, Neck Pain Skin: Denies: Rash, Wounds Neurological: Reports: Numbness, Tingling. Denies: Balance problems, Change in Speech, Confusion, Difficulty swallowing, Focal weakness, Tremor, Seizures Psychiatric: Reports: Anxiety, Depression. Denies: Suicidal Ideations Endocrine: Denies: Change in Body Habitus, Polydipsia, Polyuria Hematologic/ Lymphatic: Reports: Anemia, Easy Bruising, Easy Bleeding. Denies: Adenopathy, Hx of blood clot Patient Problems: Active and Suspected Problems UTI (urinary tract infection) (Acute) Sepsis (Acute) Acute respiratory failure with hypoxia (Acute) Subjective: Patient was seen and examined. Denies any shortness of breath, chest pain, sputum production, or cough at this time. Reports wearing oxygen because it makes him feel better, not necessarily short of breath. Objective: Clinical Impression(s) from Imaging Studies Chest X-Ray 04/07/18 23:00 IMPRESSION: Status post sternotomy. Consider mild edema. Cannot entirely exclude underlying chronic lung disease. Electronically Signed: Stephanie Martínez MD at 23:53 EDT Tel , Service support , Chest X-Ray 04/08/18 06:45 IMPRESSION: Post sternotomy. Trace left effusion atelectasis and/or infiltrate. Trace right lower lobe atelectasis. Mild interstitial prominence or mild vascular congestion. Electronically Signed: Stephanie Martínez MD at 9:23 EDT Tel , Service support , Abdomen/Pelvis CT 04/08/18 06:48 IMPRESSION: Right lower lobe consolidation small right effusion consider possible pneumonia. Left pleural effusion and left lower lobe atelectasis. Dense coronary calcification status post sternotomy. Mild hepatomegaly. Densely calcified vessels of the abdomen is detailed above including critical calcification and stenosis of the bilateral renal arteries. Since the prior study 2003 there is been interval severe atrophy of the left kidney likely due to stenosis of the renal artery. In addition there is marked worsening of the calcification of the celiac and inferior mesenteric arteries. Significant stenosis of the left common femoral artery Wall thickening of the bladder suspicious for cystitis. Mild enlargement of the prostate. Degenerative changes of thoracolumbar spine Osteoblastic lesion in the left ilium recommend follow-up bone scan. Although this may represent a focus of sclerosis interval development raises concern for underlying osteoblastic metastatic disease. Electronically Signed: Stephanie Martínez MD at 9:05 EDT Tel , Service support , - Physical Exam General: Alert, Oriented x3, Cooperative, No apparent distress, Well developed, Well nourished HEENT: Atraumatic, Normocephalic Oral: Moist Mucosa, No Gingival or Mucosal Lesions/ Ulcerations, - - Poor dental hygiene Neck: Supple, No Nodes, Trachea Midline Lungs: No rhonchi, No wheeze, No rales, Diminished, - - Symmetric expansion, no dullness to percussion Cardiovascular: Normal S1, Normal S2, No murmurs, No rub noted, No Gallop, - - Regular rhythm with ectopy Abdomen: Bowel Sounds Present, Soft, Non Tender, Hyperactive Bowel Sounds, Obese , Hernia Extremities: No clubbing, No cyanosis, Capillary Refill Less than 3 Seconds, Edema, - - Venous stasis changes Skin: No rashes, No breakdown Musculoskeletal: No Tenderness to Palpation of Joints or Extremities, No Muscle Wasting Lymphatic: No Cervical, Supraclavicular, or Inguinal Adenopathy Neurological: Cranial nerves II-XII grossly intact, Neuro grossly intact, Motor Exam 5/5 strength throughout, - - Decreased sensation to bilateral lower extremities, chronic Psych/Mental Status: Alert and oriented to time, place, person, mood and affect Vital Signs Temp Pulse Resp BP Pulse Ox 98.4 F 62 16 142/58 H 99 04/10/18 02:31 04/10/18 07:17 04/10/18 07:17 04/10/18 05:27 04/10/18 07:17 Oxygen Flow Rate (L/min) 2 Oxygen Delivery Method Nasal Cannula Weight: 199 lb 8.293 oz Body Mass Index (BMI) 31.2 Intake and Output for Last 24 Hours 04/08/18 04/09/18 04/10/18 23:59 23:59 23:59 Intake Total 2027 / 2027 1170 / 1170 250 / 250 Output Total 1125 / 1125 1475 / 1475 725 / 725 Balance 903 / 903 -305 / -305 -475 / -475 Laboratory Tests Past 24 Hrs 04/10/18 04/10/18 06:08 06:08 WBC 13.6 H RBC 3.00 L Hgb 8.9 L Hct 29.0 L MCV 96.7 H MCH 29.7 MCHC 30.7 L RDW 17.4 H RDW Differential 60.8 H Plt Count 251 MPV 9.9 Immature Gran % (Auto) 0.300 Neut % (Auto) 90.9 H Lymph % (Auto) 3.8 L [place] % (Auto) 4.9 Eos % (Auto) 0.0 Baso % (Auto) 0.1 Absolute Neuts (auto) 12.4 H Absolute Lymphs (auto) 0.51 L Total Counted Not Reportable Differential Comment SCANNED Sodium 137 Potassium 3.9 Chloride 104 Carbon Dioxide 22.0 Anion Gap 11 BUN 36 H Creatinine 1.34 H Estim Creat Clear Calc 50.70 Est GFR (MDRD) Af Amer 69 Est GFR (MDRD) Non-Af 57 L BUN/Creatinine Ratio 26.9 H Glucose 151 H Calcium 8.5 Assessment/Plan All Active Problems UTI (urinary tract infection) (Acute) Sepsis (Acute) Acute respiratory failure with hypoxia (Acute) Diastolic CHF (Acute) Respiratory failure with hypoxia (Acute) RECOMMENDATIONS 1. Wean oxygen supplementation to keep saturations later than 88% 2. Encourage incentive spirometer 3. Increase activity as tolerated, PT/OT 4. Continue aerosols 5. Discontinue steroids 6. Obtain records from Dr. Quesada's office in [facility] 7. Ambulatory pulse ox prior to discharge 8. Patient would like to transfer care to pulmonary medicine of [place], please set up an appointment for 2 weeks with [facility]. He will likely need repeat pulmonary function tests and a pulmonary stress test, this can be set up as an outpatient. Medications can be adjusted as an outpatient as well to optimize pulmonary status. IMPRESSIONS 1. Sepsis secondary to complicated UTI Improved, leukocytosis is resolving. Currently on cefepime. Pulmonary urine culture showing possible Pseudomonas species. 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 There are plans for outpatient procedure with Dr. Villa for urinary outlet obstruction after the infection has cleared. Patient is now afebrile and hemodynamically stable. 2. Acute renal failure Continues to improve, diuresed with Bumex. Cumulative fluid balance of +123 mL. Patient does have atrophic left kidney and CT the abdomen/pelvis showed severe renal stenosis. Nephrology is following. No indication for renal replacement therapy at this time. 3. Acute on chronic diastolic CHF Also improved. IV Bumex. Is to follow-up with primary food mixer repairer Dr. Yu [place], [place]. 4. Presumed COPD Records from Dr. Quesada are not available at this time. These were requested. The patient denies any history of COPD, however was put on Advair and Ventolin as an outpatient but discontinued Advair secondary to financial reasons. Again , patient will require repeat pulmonary function tests and a pulmonary stress test as an outpatient to quantify and clarify his lung function. Hopefully, his overall breathing can be optimized with routine follow-up as an outpatient. 5. Tobacco abuse Encouraged ongoing smoking cessation. Patient has recently relapsed and started smoking again, despite feeling short of breath with exertion. He denies need for nicotine replacement therapy at this time. Thank for the opportunity to participate in this patient's care, please do not hesitate contact us with any further questions or concerns. This note was generated with [employer] software. It may contain incorrect words, spelling, and punctuation that were not noted in checking the note before signing.
[2018-04-10] MEDS: Docusate Sodium 100 MG Capsule 200 MG PO (10:00)
[2018-04-10] MEDS: Bumetanide 1 MG/4 ML Vial 2 MG IV (10:01)
[2018-04-10] MEDS: Magnesium Oxide 400 MG Tablet PO (10:02)
[2018-04-10] MEDS: guaiFENesin 600 MG Tablet PO (10:03)
[2018-04-10] MEDS: Metoprolol(XL)Succ 100 MG Tablet PO (10:04)
[2018-04-10] MEDS: Sertraline 50 MG Tablet PO (10:04)
[2018-04-10] MEDS: Spironolactone 50 MG Tablet PO (10:04)
[2018-04-10] MEDS: Tamsulosin HCl 0.4 MG Capsule PO (10:04)
[2018-04-10] MEDS: Fluconazole 100 MG Tablet 200 MG PO (10:05)
[2018-04-10] MEDS: Finasteride 5 MG Tablet PO (10:06)
[2018-04-10] MEDS: amLODIPine 5 MG Tablet PO (10:06)
[2018-04-10] MEDS: Clopidogrel Bisulfate 75 MG Tablet PO (10:08)
--- NOTE | 2018-04-10 10:19 | PCA ---
release of medical records faxed over to dr.james roman (circle saw operator) fax number : [phone]
--- NOTE | 2018-04-10 11:37 | PCM.CONS.R ---
Problem List (1) Diastolic CHF Status: Acute Qualifiers: Heart failure chronicity: acute on chronic Qualified Code(s): I50.33 - Acute on chronic diastolic (congestive) heart failure (2) HTN (hypertension) Status: Chronic Consultation - Renal 04/10/18 PCP/ Referring MD: Requesting physician: Dr Armijo Primary care physician: Tania Berger DIRECTOR OF CARDIOPULMONARY SERVICES-C Reason for Consultation:: DAI - History of Present Illness History of Present Illness: The patient is a 67 year old M who was admitted with UTI and sepsis. renal consulted regarding DAI KATELYN fairly complicated history recently. He was recently in [facility] with urinary retention, CHF, DAI, possible pnuemonia. grider was placed, failed voiding trial now sees Dr zhou. CHF - sees collector of port based out of [facility]). vasculopath. says he had total of 13 stents all over history of HTN for many years, apparently poorly controlled recently admitted with CHF x 2 in last 3 weeks or so reviewed records from [facility] that are available currently feels ok - Allergies Allergies: Allergies irbesartan [From Avapro] Adverse Reaction (Verified 04/07/18 20:54) Other zolpidem [From Ambien] Adverse Reaction (Verified 04/07/18 20:54) Other - Current Medications Current Medications: Current Medications Acetaminophen (Tylenol) 650 mg PO Q6H PRN PRN PRN Reason: FEVER Last Admin: 04/10/18 05:26 Dose: 650 mg Albuterol Sulfate (Ventolin Aerosols) 2.5 mg INHALATION Q2H PRN PRN PRN Reason: breathing Albuterol/Ipratropium (Duoneb) 3 ml INHALATION Q4H.RT [facility] Last Admin: 04/10/18 11:13 Dose: 3 ml Amlodipine Besylate (Norvasc) 5 mg PO DAILY [facility] Last Admin: 04/10/18 10:06 Dose: 5 mg Aspirin (Aspirin, Baby) 81 mg PO DAILY@0800 [facility] Last Admin: 04/10/18 07:42 Dose: 81 mg Atorvastatin Calcium (Lipitor) 80 mg PO QHS [facility] Last Admin: 04/09/18 22:17 Dose: 80 mg Bumetanide (Bumex) 2 mg IV BID@1000,1800 [facility] Last Admin: 04/10/18 10:01 Dose: 2 mg Clopidogrel Bisulfate (Plavix) 75 mg PO DAILY [facility] Last Admin: 04/10/18 10:08 Dose: 75 mg Docusate Sodium (Colace) 200 mg PO DAILY [facility] Last Admin: 04/10/18 10:00 Dose: 200 mg Ferrous Sulf[facility] ([facility]) [facility] Last Admin: 04/10/18 07:42 Dose: 325 mg Finasteride (Proscar) 5 mg PO DAILY [facility] Last Admin: 04/10/18 10:06 Dose: 5 mg Guaifenesin (Mucinex) 600 mg PO BID [facility] Last Admin: 04/10/18 10:03 Dose: 600 mg Heparin Sodium (Porcine) (Heparin Na) 5,000 unit SC Q8 [facility] Last Admin: 04/10/18 05:24 Dose: 5,000 u Hydralazine HCl (Apresoline) 50 mg PO TID [facility] Last Admin: 04/10/18 05:27 Dose: 50 mg Cefepime HCl 1 gm/ Sodium (Chloride) 50 mls @ 100 mls/hr IV Q24 [facility] Last Admin: 04/10/18 10:02 Dose: 100 mls/hr Magnesium Hydroxide (Milk Of Magnesia) 30 ml PO DAILY PRN PRN Reason: Constipation Last Admin: 04/10/18 05:27 Dose: 30 ml Magnesium Oxide (Mag-Ox 400) 400 mg PO BID [facility] Last Admin: 04/10/18 10:02 Dose: 400 mg Metoprolol Succinate (Toprol Xl (Beta Kadi)) 100 mg PO DAILY [facility] Last Admin: 04/10/18 10:04 Dose: 100 mg Morphine Sulfate () 4 mg IV Q4H PRN PRN PRN Reason: SEVERE PAIN (6-10/10) Last Admin: 04/08/18 22:21 Dose: 4 mg Potassium Chloride (K-Dur) [facility] Last Admin: 04/10/18 07:42 Dose: 20 meq Pramipexole Dihydrochloride (Mirapex) 0.5 mg PO DAILY@2200 [facility] Last Admin: 04/09/18 22:09 Dose: 0.5 mg Prednisone () 40 mg PO DAILY@0800 [facility] Last Admin: 04/10/18 07:42 Dose: 40 mg Sertraline HCl (Zoloft) 50 mg PO DAILY [facility] Last Admin: 04/10/18 10:04 Dose: 50 mg Sodium Chloride () 5 - 30 ml IV UD PRN PRN Reason: SALINE FLUSH Last Admin: 04/10/18 05:27 Dose: 10 ml Spironolactone (Aldactone) 50 mg PO DAILY [facility] Last Admin: 04/10/18 10:04 Dose: 50 mg Tamsulosin HCl (Flomax) 0.4 mg PO BID [facility] Last Admin: 04/10/18 10:04 Dose: 0.4 mg - Past Medical History Past Medical History (Chronic Problems): Chronic Problems HLD (hyperlipidemia) (Chronic) HTN (hypertension) (Chronic) PAD (peripheral artery disease) (Chronic) CAD (coronary artery disease) (Chronic) COPD (chronic obstructive pulmonary disease) (Chronic) Tobacco dependence (Chronic) CKD (chronic kidney disease) (Chronic) Leukocytosis (Chronic) Anemia (Chronic) BPH (benign prostatic hyperplasia) (Chronic) - Past Surgical History Surgical History: coronary bypass surgery, tonsillectomy - Social History Smoking Status: Current every day smoker Alcohol: Occasional Drugs: None - Family History Maternal History Items: No pertinent history Paternal History Items: No pertinent history Review of Systems Constitutional: Denies: Chills, Fever, Weight Change HEENT: Denies: Head Aches, Sinus Congestion, Sinus Drainage Cardiovascular: Denies: Chest Pain, Palpitations Respiratory: Denies: Cough, Shortness of breath at rest, Sputum production Gastrointestinal: Denies: Abdominal Pain, Nausea, Vomiting Genitourinary: Denies: Dysuria Musculoskeletal: Denies: Joint Pain, Joint Tenderness Skin: Denies: Rash, Wounds Neurological: Denies: Numbness, Tingling, Focal weakness Psychiatric: Denies: Anxiety, Depression, Homicidal Ideations, Suicidal Ideations Hematologic/ Lymphatic: Denies: Easy Bruising, Easy Bleeding Patient Problems: Active and Suspected Problems UTI (urinary tract infection) (Acute) Sepsis (Acute) Acute respiratory failure with hypoxia (Acute) - Physical Exam General: Alert, Oriented x3, Cooperative HEENT: Atraumatic, PERRLA, EOMI, Normocephalic Neck: Supple, No JVD, Negative Carotid Bruits Lungs: Clear to auscultation, Normal air movement Cardiovascular: Regular rate, No murmurs Abdomen: Bowel Sounds Present, Soft, Non Tender Extremities: No edema, Capillary Refill Less than 3 Seconds Skin: No rashes, No breakdown Musculoskeletal: No Tenderness to Palpation of Joints or Extremities Neurological: Cranial nerves II-XII grossly intact Psych/Mental Status: Normal Affect, Appropriate Vital Signs Temp Pulse Resp BP Pulse Ox 98.0 F 62 20 H 136/49 H 97 04/10/18 08:31 04/10/18 11:13 04/10/18 11:13 04/10/18 08:31 04/10/18 10:33 Oxygen Flow Rate (L/min) 2 Oxygen Delivery Method Room Air Weight: 90.5 kg Body Mass Index (BMI) 31.2 Intake and Output for Last 24 Hours 04/08/18 04/09/18 04/10/18 23:59 23:59 23:59 Intake Total 2027 / 2027 1170 / 1170 250 / 250 Output Total 1125 / 1125 1475 / 1475 725 / 725 Balance 903 / 903 -305 / -305 -475 / -475 Laboratory Tests Past 24 Hrs 04/10/18 04/10/18 06:08 06:08 WBC 13.6 H RBC 3.00 L Hgb 8.9 L Hct 29.0 L MCV 96.7 H MCH 29.7 MCHC 30.7 L RDW 17.4 H RDW Differential 60.8 H Plt Count 251 MPV 9.9 Immature Gran % (Auto) 0.300 Neut % (Auto) 90.9 H Lymph % (Auto) 3.8 L [place] % (Auto) 4.9 Eos % (Auto) 0.0 Baso % (Auto) 0.1 Absolute Neuts (auto) 12.4 H Absolute Lymphs (auto) 0.51 L Total Counted Not Reportable Differential Comment SCANNED Sodium 137 Potassium 3.9 Chloride 104 Carbon Dioxide 22.0 Anion Gap 11 BUN 36 H Creatinine 1.34 H Estim Creat Clear Calc 50.70 Est GFR (MDRD) Af Amer 69 Est GFR (MDRD) Non-Af 57 L BUN/Creatinine Ratio 26.9 H Glucose 151 H Calcium 8.5 Assessment/Plan All Active Problems UTI (urinary tract infection) (Acute) Sepsis (Acute) Acute respiratory failure with hypoxia (Acute) Diastolic CHF (Acute) Respiratory failure with hypoxia (Acute) DAI. Baseline creatinine at the time of dc was 1.1. Admitted with creatinine of 1.7, slowly improving. UA shows some leukocytes but this is a grider sample with active UTI. CT abdomen shows no hydronephrosis Renal artery stenosis. significant history of smoking. coronary, PVD. has cardiac stents and from imaging studies looks like he has a aortobifemoral graft with possible mesentric stent. Left kidney is atrophic and is likely dysfunctional right renal artery has extensive calcification at origin and proximal stent. (this was a non contrast study). Likely has stenosis, possibly hemodynamically significant looking at anatomy on CT, he has extensive calcification all over aorta and most of renal artery. Doubt stenting is feasible bypass also doubtful given anatomy vascular surgery evaluation suggested, can be done as outpatient for now can be discharged on PO bumex d/w Dr Duong
--- NOTE | 2018-04-10 11:45 | PCM.DC ---
- Discharge Diagnoses Current Active Problems: Current Active and Chronic Problems UTI (urinary tract infection) (Acute) Sepsis (Acute) Acute respiratory failure with hypoxia (Acute) Reason(s) for Visit for Discharge Instructions: Shortness of breath You will use the following diet at home:: Cardiac Your food should be the consistency of: Regular Your liquids should be the consistency of: Regular/Thin Discharge Activity: Return to Normal Activity Additional Instructions: Please follow a 1500mls fluid restriction. Weigh yourself everyday and let your doctor know if you go more than 4 pounds in weight. Continue to use your incentive spirometer. You are going to be discharged with a grider catheter and follow-up closely with DR. Villa. Referrals to cardiology and nephrology have been made for you. Follow-up closely with them. Complete your antibiotics. Allergies/Adverse Reactions: Allergies irbesartan [From Avapro] Adverse Reaction (Verified 04/07/18 20:54) Other zolpidem [From Ambien] Adverse Reaction (Verified 04/07/18 20:54) Other Medications to take at Discharge Aspirin [Aspirin, Baby] 81 mg PO DAILY@0800 01/28/18 Clopidogrel Bisulfate [Plavix] 75 mg PO DAILY 01/28/18 Metoprolol Succinate 100 mg PO DAILY 01/28/18 Ropinirole HCl [Requip] 1 mg PO DAILY 01/28/18 Rosuvastatin Calcium [Crestor] 40 mg PO DAILY 01/28/18 Spironolactone 50 mg PO DAILY 01/28/18 Tamsulosin HCl [Flomax] 0.4 mg PO BID 01/28/18 hydrALAZINE [Apresoline] 50 mg PO TID 01/28/18 Ferrous Sulfate 325 mg PO BIDCM #60 tab 01/30/18 Ipratropium/Albuterol Sulfate [Duoneb] 3 ml INHALATION Q4H.RT #120 ampul.neb 01/30/18 Finasteride [Proscar] 5 mg PO DAILY 04/08/18 Potassium Chloride [K-Dur] 10 meq PO DAILY 04/08/18 Amlodipine [Norvasc] 5 mg PO DAILY #30 tab 04/10/18 Bumetanide 2 mg PO BID #60 tab 04/10/18 Ciprofloxacin [Cipro] 500 mg PO BID #14 tab 04/10/18 Guaifenesin [Mucinex] 600 mg PO BID #14 tab 04/10/18 Sertraline HCl [Zoloft] 50 mg PO DAILY 30 Days #30 tab 04/10/18 The following prescriptions were given: Amlodipine [Norvasc] 5 mg PO DAILY #30 tab Sertraline HCl [Zoloft] 50 mg PO DAILY 30 Days #30 tab Bumetanide 2 mg PO BID #60 tab Ciprofloxacin [Cipro] 500 mg PO BID #14 tab Guaifenesin [Mucinex] 600 mg PO BID #14 tab Primary Care Physician: Tania Berger, ARMEN-C [Primary Care Provider] - Please follow up with your Primary Care Physician in: within 1-2 weeks Please Follow Up With: Chepe Barrientos MD When: within 2 weeks for cardiac clearance Please Follow Up With: Caleb Alaniz MD When: in 1 week Please Follow Up With: Elie Caicedo MD When: in 2 weeks with Nurse practitioner Please Follow Up With: Alvaro Villa MD When: as scheduled or within 2 weeks Proposed Discharge Date: 04/10/18
--- NOTE | 2018-04-10 11:47 | CON.PCM_ITS ---
Problem List (1) Diastolic CHF Status: Acute Qualifiers: Heart failure chronicity: acute on chronic Qualified Code(s): I50.33 - Acute on chronic diastolic (congestive) heart failure (2) HTN (hypertension) Status: Chronic Consultation - Renal 04/10/18 PCP/ Referring MD: Requesting physician: Dr Armijo Primary care physician: Tania Berger AEROBICS TEACHER-C Reason for Consultation:: DAI - History of Present Illness History of Present Illness: The patient is a 67 year old M who was admitted with UTI and sepsis. renal consulted regarding DAI KATELYN fairly complicated history recently. He was recently in [facility] with urinary retention, CHF, DAI, possible pnuemonia. grider was placed, failed voiding trial now sees Dr zhou. CHF - sees honeycomb blanket maker based out of [facility]). vasculopath. says he had total of 13 stents all over history of HTN for many years, apparently poorly controlled recently admitted with CHF x 2 in last 3 weeks or so reviewed records from [facility] that are available currently feels ok - Allergies Allergies: Allergies irbesartan [From Avapro] Adverse Reaction (Verified 04/07/18 20:54) Other zolpidem [From Ambien] Adverse Reaction (Verified 04/07/18 20:54) Other - Current Medications Current Medications: Current Medications Acetaminophen (Tylenol) 650 mg PO Q6H PRN PRN PRN Reason: FEVER Last Admin: 04/10/18 05:26 Dose: 650 mg Albuterol Sulfate (Ventolin Aerosols) 2.5 mg INHALATION Q2H PRN PRN PRN Reason: breathing Albuterol/Ipratropium (Duoneb) 3 ml INHALATION Q4H.RT [facility] Last Admin: 04/10/18 11:13 Dose: 3 ml Amlodipine Besylate (Norvasc) 5 mg PO DAILY [facility] Last Admin: 04/10/18 10:06 Dose: 5 mg Aspirin (Aspirin, Baby) 81 mg PO DAILY@0800 [facility] Last Admin: 04/10/18 07:42 Dose: 81 mg Atorvastatin Calcium (Lipitor) 80 mg PO QHS [facility] Last Admin: 04/09/18 22:17 Dose: 80 mg Bumetanide (Bumex) 2 mg IV BID@1000,1800 [facility] Last Admin: 04/10/18 10:01 Dose: 2 mg Clopidogrel Bisulfate (Plavix) 75 mg PO DAILY [facility] Last Admin: 04/10/18 10:08 Dose: 75 mg Docusate Sodium (Colace) 200 mg PO DAILY [facility] Last Admin: 04/10/18 10:00 Dose: 200 mg [facility] Admin: 04/10/18 07:42 Dose: 325 mg Finasteride (Proscar) 5 mg PO DAILY [facility] Last Admin: 04/10/18 10:06 Dose: 5 mg Guaifenesin (Mucinex) 600 mg PO BID [facility] Last Admin: 04/10/18 10:03 Dose: 600 mg Heparin Sodium (Porcine) (Heparin Na) 5,000 unit SC Q8 [facility] Last Admin: 04/10/18 05:24 Dose: 5,000 u Hydralazine HCl (Apresoline) 50 mg PO TID [facility] Last Admin: 04/10/18 05:27 Dose: 50 mg Cefepime HCl 1 gm/ Sodium (Chloride) 50 mls @ 100 mls/hr IV Q24 [facility] Last Admin: 04/10/18 10:02 Dose: 100 mls/hr Magnesium Hydroxide (Milk Of Magnesia) 30 ml PO DAILY PRN PRN Reason: Constipation Last Admin: 04/10/18 05:27 Dose: 30 ml Magnesium Oxide (Mag-Ox 400) 400 mg PO BID [facility] Last Admin: 04/10/18 10:02 Dose: 400 mg Metoprolol Succinate (Toprol Xl (Beta Kadi)) 100 mg PO DAILY [facility] Last Admin: 04/10/18 10:04 Dose: 100 mg Morphine Sulfate () 4 mg IV Q4H PRN PRN PRN Reason: SEVERE PAIN (6-10/10) Last Admin: 04/08/18 22:21 Dose: 4 mg Potassium Ch[facility] ([facility]) [facility] Admin: 04/10/18 07:42 Dose: 20 meq Pramipexole Dihydrochloride (Mirapex) 0.5 mg PO DAILY@2200 [facility] Last Admin: 04/09/18 22:09 Dose: 0.5 mg Prednisone () 40 mg PO DAILY@0800 [facility] Last Admin: 04/10/18 07:42 Dose: 40 mg Sertraline HCl (Zoloft) 50 mg PO DAILY [facility] Last Admin: 04/10/18 10:04 Dose: 50 mg Sodium Chloride () 5 - 30 ml IV UD PRN PRN Reason: SALINE FLUSH Last Admin: 04/10/18 05:27 Dose: 10 ml Spironolactone (Aldactone) 50 mg PO DAILY [facility] Last Admin: 04/10/18 10:04 Dose: 50 mg Tamsulosin HCl (Flomax) 0.4 mg PO BID [facility] Last Admin: 04/10/18 10:04 Dose: 0.4 mg - Past Medical History Past Medical History (Chronic Problems): Chronic Problems HLD (hyperlipidemia) (Chronic) HTN (hypertension) (Chronic) PAD (peripheral artery disease) (Chronic) CAD (coronary artery disease) (Chronic) COPD (chronic obstructive pulmonary disease) (Chronic) Tobacco dependence (Chronic) CKD (chronic kidney disease) (Chronic) Leukocytosis (Chronic) Anemia (Chronic) BPH (benign prostatic hyperplasia) (Chronic) - Past Surgical History Surgical History: coronary bypass surgery, tonsillectomy - Social History Smoking Status: Current every day smoker Alcohol: Occasional Drugs: None - Family History Maternal History Items: No pertinent history Paternal History Items: No pertinent history Review of Systems Constitutional: Denies: Chills, Fever, Weight Change HEENT: Denies: Head Aches, Sinus Congestion, Sinus Drainage Cardiovascular: Denies: Chest Pain, Palpitations Respiratory: Denies: Cough, Shortness of breath at rest, Sputum production Gastrointestinal: Denies: Abdominal Pain, Nausea, Vomiting Genitourinary: Denies: Dysuria Musculoskeletal: Denies: Joint Pain, Joint Tenderness Skin: Denies: Rash, Wounds Neurological: Denies: Numbness, Tingling, Focal weakness Psychiatric: Denies: Anxiety, Depression, Homicidal Ideations, Suicidal Ideations Hematologic/ Lymphatic: Denies: Easy Bruising, Easy Bleeding Patient Problems: Active and Suspected Problems UTI (urinary tract infection) (Acute) Sepsis (Acute) Acute respiratory failure with hypoxia (Acute) - Physical Exam General: Alert, Oriented x3, Cooperative HEENT: Atraumatic, PERRLA, EOMI, Normocephalic Neck: Supple, No JVD, Negative Carotid Bruits Lungs: Clear to auscultation, Normal air movement Cardiovascular: Regular rate, No murmurs Abdomen: Bowel Sounds Present, Soft, Non Tender Extremities: No edema, Capillary Refill Less than 3 Seconds Skin: No rashes, No breakdown Musculoskeletal: No Tenderness to Palpation of Joints or Extremities Neurological: Cranial nerves II-XII grossly intact Psych/Mental Status: Normal Affect, Appropriate Vital Signs Temp Pulse Resp BP Pulse Ox 98.0 F 62 20 H 136/49 H 97 04/10/18 08:31 04/10/18 11:13 04/10/18 11:13 04/10/18 08:31 04/10/18 10:33 Oxygen Flow Rate (L/min) 2 Oxygen Delivery Method Room Air Weight: 90.5 kg Body Mass Index (BMI) 31.2 Intake and Output for Last 24 Hours 04/08/18 04/09/18 04/10/18 23:59 23:59 23:59 Intake Total 2027 / 2027 1170 / 1170 250 / 250 Output Total 1125 / 1125 1475 / 1475 725 / 725 Balance 903 / 903 -305 / -305 -475 / -475 Laboratory Tests Past 24 Hrs 04/10/18 04/10/18 06:08 06:08 WBC 13.6 H RBC 3.00 L Hgb 8.9 L Hct 29.0 L MCV 96.7 H MCH 29.7 MCHC 30.7 L RDW 17.4 H RDW Differential 60.8 H Plt Count 251 MPV 9.9 Immature Gran % (Auto) 0.300 Neut % (Auto) 90.9 H Lymph % (Auto) 3.8 L [place] % (Auto) 4.9 Eos % (Auto) 0.0 Baso % (Auto) 0.1 Absolute Neuts (auto) 12.4 H Absolute Lymphs (auto) 0.51 L Total Counted Not Reportable Differential Comment SCANNED Sodium 137 Potassium 3.9 Chloride 104 Carbon Dioxide 22.0 Anion Gap 11 BUN 36 H Creatinine 1.34 H Estim Creat Clear Calc 50.70 Est GFR (MDRD) Af Amer 69 Est GFR (MDRD) Non-Af 57 L BUN/Creatinine Ratio 26.9 H Glucose 151 H Calcium 8.5 Assessment/Plan All Active Problems UTI (urinary tract infection) (Acute) Sepsis (Acute) Acute respiratory failure with hypoxia (Acute) Diastolic CHF (Acute) Respiratory failure with hypoxia (Acute) DAI. Baseline creatinine at the time of dc was 1.1. Admitted with creatinine of 1.7, slowly improving. UA shows some leukocytes but this is a grider sample with active UTI. CT abdomen shows no hydronephrosis Renal artery stenosis. significant history of smoking. coronary, PVD. has cardiac stents and from imaging studies looks like he has a aortobifemoral graft with possible mesentric stent. Left kidney is atrophic and is likely dysfunctional right renal artery has extensive calcification at origin and proximal stent. ( this was a non contrast study). Likely has stenosis, possibly hemodynamically significant looking at anatomy on CT, he has extensive calcification all over aorta and most of renal artery. Doubt stenting is feasible bypass also doubtful given anatomy vascular surgery evaluation suggested, can be done as outpatient for now can be discharged on PO bumex d/w Dr Duong
--- NOTE | 2018-04-10 11:58 | DS.PCM_ITS ---
Discharge Date and Diagnosis - Problem List Patient Problems: Active and Suspected Problems UTI (urinary tract infection) (Acute) Sepsis (Acute) Acute respiratory failure with hypoxia (Acute) Date of Admission: 04/07/18 Date of Discharge: 04/10/18 - Primary Discharge Diagnosis Active and Suspected Problems 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 UTI (urinary tract infection) (Acute) Acute respiratory failure with hypoxia (Acute) Acute kidney injury Acute hyponatremia Acute on chronic diastolic CHF Acute lower urinary tract obstruction secondary to BPH - Secondary Discharge Diagnosis Chronic Problems HLD (hyperlipidemia) (Chronic) HTN (hypertension) (Chronic) PAD (peripheral artery disease) (Chronic) CAD (coronary artery disease) (Chronic) COPD (chronic obstructive pulmonary disease) (Chronic) Tobacco dependence (Chronic) CKD (chronic kidney disease) (Chronic) Leukocytosis (Chronic) Anemia (Chronic) BPH (benign prostatic hyperplasia) (Chronic) Hospital Course and Treatment Imaging Results: Clinical Impression(s) from Imaging Studies Chest X-Ray 04/07/18 23:00 IMPRESSION: Status post sternotomy. Consider mild edema. Cannot entirely exclude underlying chronic lung disease. Electronically Signed: Stephanie Martínez MD at 23:53 EDT Tel , Service support , Chest X-Ray 04/08/18 06:45 IMPRESSION: Post sternotomy. Trace left effusion atelectasis and/or infiltrate. Trace right lower lobe atelectasis. Mild interstitial prominence or mild vascular congestion. Electronically Signed: Stephanie Martínez MD at 9:23 EDT Tel , Service support , Abdomen/Pelvis CT 04/08/18 06:48 IMPRESSION: Right lower lobe consolidation small right effusion consider possible pneumonia. Left pleural effusion and left lower lobe atelectasis. Dense coronary calcification status post sternotomy. Mild hepatomegaly. Densely calcified vessels of the abdomen is detailed above including critical calcification and stenosis of the bilateral renal arteries. Since the prior study 2003 there is been interval severe atrophy of the left kidney likely due to stenosis of the renal artery. In addition there is marked worsening of the calcification of the celiac and inferior mesenteric arteries. Significant stenosis of the left common femoral artery Wall thickening of the bladder suspicious for cystitis. Mild enlargement of the prostate. Degenerative changes of thoracolumbar spine Osteoblastic lesion in the left ilium recommend follow-up bone scan. Although this may represent a focus of sclerosis interval development raises concern for underlying osteoblastic metastatic disease. Electronically Signed: Stephanie Martínez MD at 9:05 EDT Tel , Service support , None Operations: None Procedures: None Summary of Care Provided: The patient is a 67 year old M with past medical history of CAD, CHF, COPD, hypertension, BPH, status post chronic Charles catheter, hyperlipidemia, who comes in with complaints of urinary obstruction. Patient was recently discharged 4 months for the hospital with a Charles catheter. He had been seen in the ED several times where his Charles was flushed. Patient had followed up with Dr. Villa and his catheter was removed. He was unable to urinate and it was re-inserted. He had come in complaining of sharp pain at the tip of the penis. Patient had not noted any blood or cloudiness of his urine. He was admitted and managed as sepsis secondary to [place] UTI. He was also found to be in acute on chronic diastolic CHF, and managed on IV Bumex with improvement in his oxygen requirements and kidney function. He was seen cardiology, nephrology, urology physicians. Urology wants him to still have the Chrales catheter in and follow-up with him in the outpatient. Patient will need cardiac clearance. 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 Appointment made for him. He was discharged home on Ciprofloxacin for 7 more days. Patient knows to weigh himself, fluid restrict himself, follow-up with all his physicians, needs to repeat blood work in 3 days. Discharge Diet: Low fat/ Low Cholesterol, 2000 mg Sodium Diet Discharge Activity: Return to Normal Activity Home Medications: Medications to take at Discharge Aspirin [Aspirin, Baby] 81 mg PO DAILY@0800 01/28/18 Clopidogrel Bisulfate [Plavix] 75 mg PO DAILY 01/28/18 Metoprolol Succinate 100 mg PO DAILY 01/28/18 Ropinirole HCl [Requip] 1 mg PO DAILY 01/28/18 Rosuvastatin Calcium [Crestor] 40 mg PO DAILY 01/28/18 Spironolactone 50 mg PO DAILY 01/28/18 Tamsulosin HCl [Flomax] 0.4 mg PO BID 01/28/18 hydrALAZINE [Apresoline] 50 mg PO TID 01/28/18 Ferrous Sulfate 325 mg PO BIDCM #60 tab 01/30/18 Ipratropium/Albuterol Sulfate [Duoneb] 3 ml INHALATION Q4H.RT #120 ampul.neb Finasteride [Proscar] 5 mg PO DAILY 04/08/18 Potassium Chloride [K-Dur] 10 meq PO DAILY 04/08/18 Amlodipine [Norvasc] 5 mg PO DAILY #30 tab 04/10/18 Bumetanide 2 mg PO BID #60 tab 04/10/18 Ciprofloxacin [Cipro] 500 mg PO BID #14 tab 04/10/18 Guaifenesin [Mucinex] 600 mg PO BID #14 tab 04/10/18 Sertraline HCl [Zoloft] 50 mg PO DAILY 30 Days #30 tab 04/10/18 Following Prescrptions Were Given to Patient: Amlodipine [Norvasc] 5 mg PO DAILY #30 tab Sertraline HCl [Zoloft] 50 mg PO DAILY 30 Days #30 tab Bumetanide 2 mg PO BID #60 tab Ciprofloxacin [Cipro] 500 mg PO BID #14 tab Guaifenesin [Mucinex] 600 mg PO BID #14 tab Primary Care Physician: Tania Berger NP-C [Primary Care Provider] - Please follow up with your Primary Care Physician in: within 1-2 weeks Please Follow Up With: Chepe Barrientos MD When: within 2 weeks for cardiac clearance Please Follow Up With: Caleb Alaniz MD When: in 1 week Please Follow Up With: Elie Caicedo MD When: in 2 weeks with Nurse practitioner Please Follow Up With: Alvaro Villa MD When: as scheduled or within 2 weeks Disposition: Home Minutes spent on discharge:: 40 Patient Condition:: Stable Medical Necessity - Tobacco Use Smoking Status: Current every day smoker Tobacco Use: Cigarettes Meaningful Use Info Meaningful Use Diagnoses (Choose all that apply): None applicable Code Visit Inpatient E&M: 41381 Disch Hosp
--- NOTE | 2018-04-10 12:18 | CASEMGMT ---
Dr. Duong updated this RN CM that she is recommending patient go home with HHC. RN CM discussed discharge plans with the patient and family. 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 RN CM updated Dr. Duong regarding patient declining HHC.
[2018-04-10 12:35] LABS: BNP,B-Type NATRIURETIC PEPTIDE 1600.6 pg/mL (0-100)
[2018-04-11 11:32] LABS: Pathologist Review Reviewed
[2018-04-12 13:44] LABS: PROELU- Albumin, Urine 47.4 % (.); PROELU- Alpha-1-Globulin,Ur 4.7 % (.); PROELU- Alpha-2-Globulin,Ur 13.7 % (.); PROELU- Beta Globulin, Ur 21.4 % (.); PROELU- Gamma Globulin, Ur 12.7 % (.); Total Protein, Ur 43.1 mg/dL (Not Estab.)
[2018-04-12 14:07] LABS: Immunoglobulin A 136 mg/dL (61-437); Immunoglobulin G 511 mg/dL (700-1600); PROEL- A/G Ratio 1.1 (0.7-1.7); PROEL- Albumin 2.8 g/dL (2.9-4.4); PROEL- Alpha-1 Globulin 0.5 g/dL (0.0-0.4); PROEL- Alpha-2 Globulin 0.8 g/dL (0.4-1.0); PROEL- Beta Globulin 0.7 g/dL (0.7-1.3); PROEL- Gamma Globulin 0.5 g/dL (0.4-1.8); PROEL- Globulin, Total 2.6 g/dL (2.2-3.9); PROEL- TOTAL PROTEIN 5.4 g/dL (6.0-8.5)
--- NOTE | 2018-04-12 14:32 | CASEMGMT ---
RN CM Discharge Phone Call. Call to home phone. No answer. Message left (no pt identifiers given) with RN CM call back # if pt had questions re: dc instructions, f/u appointments or prescriptions. Deangelo UMAÑAN RN ACM
[2018-04-12 18:00] LABS: Immunoglobulin M 31 mg/dL (20-172)
== END 2018-04-10 14:03 | disposition home or self-care (01) | DRG 698 ==
LOC: ED 23:52 → MS3 04-08 00:22
PROVIDERS: Internal Medicine; Admitting Provider Internal Medicine; Emergency Provider Emergency Medicine; Family Provider Nurse Practitioner Family; PCP Nurse Practitioner Family; Visit Provider Internal Medicine
DX: T83.511A Infection and inflammatory reaction due to indwelling urethral catheter, initial encounter (principal); I50.33 Acute on chronic diastolic (congestive) heart failure; A41.9 Sepsis, unspecified organism; J96.01 Acute respiratory failure with hypoxia; E87.1 Hypo-osmolality and hyponatremia; N17.9 Acute kidney failure, unspecified; N13.8 Other obstructive and reflux uropathy; I13.0 Hypertensive heart and chronic kidney disease with heart failure and stage 1 through stage 4 chronic kidney disease, or unspecified chronic kidney disease; N39.0 Urinary tract infection, site not specified; I25.10 Atherosclerotic heart disease of native coronary artery without angina pectoris; J44.9 Chronic obstructive pulmonary disease, unspecified; N40.1 Benign prostatic hyperplasia with lower urinary tract symptoms; E78.5 Hyperlipidemia, unspecified; D64.9 Anemia, unspecified; F17.210 Nicotine dependence, cigarettes, uncomplicated; N18.3 Chronic kidney disease, stage 3 (moderate); Z95.1 Presence of aortocoronary bypass graft; E66.9 Obesity, unspecified; Z68.31 Body mass index [BMI] 31.0-31.9, adult; Y84.6 Urinary catheterization as the cause of abnormal reaction of the patient, or of later complication, without mention of misadventure at the time of the procedure; B96.89 Other specified bacterial agents as the cause of diseases classified elsewhere
CPT/HCPCS: 36415; 71045; 71046; 74176; 80048; 80061; 80076; 81001; 82784; 83605; 83735; 83880; 84100; 84153; 84165; 84166; 85025; 85610; 86334; 87040; 87077; 87086; 87088; 87184; 87186; 93306; 94640; 94762; 97162; 97166; 97530; 99282; 99284; 99406; J7030; A4216; G0103; J1940

== ENCOUNTER → 2018-04-18 07:55 | Outpatient (CLI) | payer MEDICARE, SELFPAY ==
--- NOTE | 2018-04-18 07:57 | NM_ITS ---
CLINICAL: 67-year-old male with reported history of left iliac bone sclerotic density. WHOLE BODY 99m Tc MDP RADIONUCLIDE BONE SCINTIGRAPHY COMPARISON: CT of the abdomen-pelvis report 04/08/2018 FINDINGS: Following the intravenous administration of 26.1 mCi of 99m Tc MDP, whole body bone images reveal: 1. Focal enhanced tracer concentration is apparent in the region of the left posterior ilium corresponding to the sclerotic density defined on CT of the abdomen-pelvis dated 04/08/2018. 2. Increased radiopharmaceutical concentration is otherwise identified in the acromioclavicular compartments of both shoulders, right-left hands, lower cervical spine posteriorly on the left. 3. The remaining skeletal structures are scintigraphically unremarkable with normal-appearing renal images and urinary bladder activity identified. NM/Bone Scan Whole Body IMPRESSION: 1. The increase in radiopharmaceutical concentration identified in the left posterior ilium correlates with the finding demonstrated on CT of the abdomen and pelvis dated 04/08/2018 and is of uncertain etiology. This may represent osteoid osteoma, potentially enostosis (bone island). An isolated skeletal metastasis is considered unlikely in the absence of known primary malignancy. 2. Degenerative arthritis is otherwise expressed in the bilateral shoulders, right and left hands, cervical spine as defined above. Electronically Signed: Trevor Mayo DO at 8:59 EDT Tel , Service support ,
== END ==
PROVIDERS: Family Provider Nurse Practitioner Family; PCP Nurse Practitioner Family; Visit Provider Nurse Practitioner Family
DX: M19.012 Primary osteoarthritis, left shoulder (principal); M19.011 Primary osteoarthritis, right shoulder; M19.042 Primary osteoarthritis, left hand; M19.041 Primary osteoarthritis, right hand; M50.30 Other cervical disc degeneration, unspecified cervical region; R93.5 Abnormal findings on diagnostic imaging of other abdominal regions, including retroperitoneum
CPT/HCPCS: 78306

== ENCOUNTER 2018-05-01 21:41 | Inpatient (IN) | payer MEDICARE, SELFPAY ==
[2018-05-01 21:41] VITALS: BP 160/71; PULSE 87; RESP 22; TEMP 36.8; O2SAT 95; BMI 30.7
--- NOTE | 2018-05-01 22:35 | EKG12_ITS ---
Test Reason : SOB Blood Pressure : / mmHG Vent. Rate : 092 BPM Atrial Rate : 092 BPM P-R Int : 174 ms QRS Dur : 094 ms QT Int : 380 ms P-R-T Axes : -24 064 078 degrees QTc Int : 469 ms Normal sinus rhythm Left ventricular hypertrophy with repolarization abnormality Abnormal ECG Confirmed by VIKY MONTENEGRO, JOS ([id number]), editorial project manager SHIRA HURD ([id number]) on 05/03/2018 2:16:59 PM Referred By: CLAUDIA Confirmed By:JOS SALMON MD
[2018-05-01] MEDS: Ipratropium/Albuterol Sulfate 3 ML AMPUL.NEB INHALATION (22:49)
[2018-05-01 22:50] VITALS: PULSE 92; RESP 23
--- NOTE | 2018-05-01 22:55 | RAD_ITS ---
STUDY: X-RAY CHEST REASON FOR EXAM: Male, 67 years old. Shortness of breath TECHNIQUE: Single AP portable view of the chest. COMPARISON: April 08, 2018 FINDINGS: There is blunting of the costophrenic angle increased linear density in the lung bases. There is no demonstrated pleural abnormality. Sternal cerclage wires are present from a prior sternotomy. Normal mediastinum and justyn. Normal visualized pulmonary arteries. There is atherosclerotic calcification of the aortic arch with tortuosity. There are diffuse degenerative changes of the visualized thoracic spine. Normal visualized ribs, clavicles, and shoulders. There is no demonstrated abnormality of the visualized soft tissue structures of the upper abdomen. RAD/Chest 1 View (Portable) IMPRESSION: Bilateral pleural effusions atelectasis. Consider pulmonary edema cannot exclude infection. Status post sternotomy. Electronically Signed: Stephanie Martínez MD at 23:10 EDT Tel , Service support ,
[2018-05-01 22:59] LABS: Absolute Lymphocyte Count 1.86 X10^3/ul (0.83-4.51); Absolute Neutrophil Count 15.4 X10^3/uL (2.0-7.7); Basophil# 0.04 X10^3/uL; Basophil% 0.2 % (0-1); Eosinophil# 0.08 X10^3/uL; Eosinophils% 0.4 % (0-5); Hematocrit 35.9 % (40-54); Hemoglobin 11.1 g/dl (13.0-16.5); Lymphocyte # 1.86 X10^3/ul (4.0); Mean Corp Hgb Conc 30.9 g/gl (32-36); Mean Corpuscular Hgb 30.2 pg (27.0-32.0); Mean Corpuscular Volume 97.6 fL (80-94); Mean Platelet Vol. 9.3 fl (6.2-12.0); Monocyte# 1.33 X10^3/uL; Monocyte% 7.1 % (0-10); Neutrophil # 15.35 X10^3/uL (2.7-7.7); Neutrophil % 82.2 % (47-70); Platelet Count 200 K/mm3 (150-450); RBC Distribution Width CV 18.9 % (11.6-14.6); RBC Distribution Width SD 67.2 fl (35.1-43.9); Red Blood Count 3.68 M/mm3 (4.6-6.2); White Blood Count 18.7 K/mm3 (4.4-11.0)
[2018-05-01 23:00] LABS: Differential Indicated SCAN CRITERIA MET; POSITIVE COUNT NO; POSITIVE DIFFERENTIAL NO; POSITIVE MORPHOLOGY YES
[2018-05-01 23:05] VITALS: BP 175/74; PULSE 100
[2018-05-01] MEDS: Furosemide 100 MG/10 ML Vial 80 MG IV (23:05)
[2018-05-01] MEDS: Nitroglycerin Oint 1 INCH PACKET TRANSDERM. (23:05)
[2018-05-01] MEDS: Morphine 4 MG/ML Syringe IV (23:07)
[2018-05-01 23:21] LABS: Anion Gap 11 (5-15); BUN 36 mg/dL (7-18); BUN/Creat Ratio 24.3 RATIO (10-20); Calcium,Total 9.1 mg/dL (8.5-10.1); Chloride 103 mmol/L (98-107); Creatinine, Serum 1.48 mg/dL (0.70-1.30); EST Glomerular Filtration Rate 51 mL/min (>60); Est Glom Filt Rate - Afr Amer 61 mL/min (>60); Glucose 107 mg/dL (74-106); Potassium 3.4 mmol/L (3.5-5.1); Sodium Level 137 mmol/L (136-145)
--- NOTE | 2018-05-01 23:27 | ED.DCSUM_ITS ---
- ER Visit Summary Date of Service: 05/01/18 Chief Complaint: [Shortness of breath] History of Present Illness: The patient is a 67 M presents the emergency department with complaint of shortness of breath that started 2 days ago. Patient had an occasional cough with some clear sputum at times. Patient denies any fevers. Patient states that he uses albuterol earlier in the day and had some mild chest discomfort afterwards that he attributes to the albuterol. Patient currently not having any chest pain. Patient does have a history of congestive heart failure. Patient normally does not wear home O2. Patient also states that at times he was told that he may have COPD as he used to be a smoker but quit about 4 months ago. Patient denies recent travel or surgery.] Patient has gained about 5 pounds in the last 24 hours. Patient complains of orthopnea. Physical Examination: [HEENT-PERRLA, EOMI. Cranial nerves II through XII grossly intact. TMs clear. Mucous membranes moist. No adenopathy. Cardiovascular-regular rate and rhythm without murmur or ectopy Lungs-diminished breath sounds bilaterally in the bases with Rales noted. Occasional expiratory wheeze noted. Mild tachypnea. No accessory muscle use or retractions. Abdomen-normoactive bowel sounds, soft, nontender, no rebound or rigidity, no peritoneal signs. Extremities-intact ?4, normal range of motion, normal pulses, atraumatic. Patient has +2 edema both lower extremities. Test Results: [EKG obtained on arrival showed a sinus rhythm with ventricular rate of 92 bpm with some LVH and early re-pole noted. Chest x-ray showed CHF with bilateral effusions however they could not rule out an infiltrate. CBC with differential obtained showed a white count of 18.7, hemoglobin 11, hematocrit 36, platelets 200. Chemistries unremarkable. Other than a slightly depressed potassium of 3.4. BUN was 36 and creatinine 1.48. Troponin was 0.025.] Emergency Department Course and Treatment: [Patient received Lasix IV as well as morphine and Nitropaste. Patient was given a DuoNeb aerosol. Patient was started on Levaquin] Treatment Plan: [Patient will be admitted for diuresis and further management of his CHF. My suspicion is that this is all likely CHF however he does have an elevated white blood cell count which is something that has been somewhat chronic for him although he has had a history of pneumonia and sepsis in the past. Blood cultures were ordered. I do not feel patient is septic at this time.] Disposition: [Admit] Impression: [CHF Dyspnea Leukocytosis] This note was generated with Jodange dictation software. It may contain incorrect words, spelling, and punctuation that were not noted in review of the chart prior to signing ED Disposition - Plan for ED Patient: Chief Complaint: Shortness of Breath Referrals: Tania Berger, DOUBLE END TENONER SETTER-C [Primary Care Provider] -
[2018-05-01 23:40] VITALS: PULSE 93; RESP 12; RESP 21; O2SAT 96
--- NOTE | 2018-05-01 23:41 | PCM.HP.STD ---
Problem List (1) Acute respiratory failure with hypoxia Status: Acute (2) Diastolic CHF Status: Acute Qualifiers: (3) HLD (hyperlipidemia) Status: Chronic (4) HTN (hypertension) Status: Chronic (5) PAD (peripheral artery disease) Status: Chronic (6) CAD (coronary artery disease) Status: Chronic (7) COPD (chronic obstructive pulmonary disease) Status: Chronic (8) Tobacco dependence Status: Chronic (9) BPH (benign prostatic hyperplasia) Status: Chronic History of Present Illness Date of Admission: 05/01/18 Chief Complaint: shortness of breath The patient is a 67 year old male patient with a significant past medical history of Coronary artery disease status post 3 vessel cabbage in 2010 and three stents this past May recently admitted one month ago with a similar presentation. He is acutely short of breath. He states he slept supine for the first time in a long time and when he woke up he was short of breath that progressed thru the day. He is requiring supplemental oxygen to maintain his SPO2 at 93% and his respiratory rate is 30. He has a WBC count of 18,000 with a left shift. BNTP is markedly elevated and chest xray reveals bilateral pleural effusions and infection can not be ruled out due to pulmonary edema. He has gained 5 lbs acutely as well. He was schedule to have an outpatient echo in May. He will be admitted for further management of CHF. Past Medical History Past Medical History (Chronic Problems): Chronic Problems HLD (hyperlipidemia) (Chronic) HTN (hypertension) (Chronic) PAD (peripheral artery disease) (Chronic) CAD (coronary artery disease) (Chronic) COPD (chronic obstructive pulmonary disease) (Chronic) Tobacco dependence (Chronic) CKD (chronic kidney disease) (Chronic) Leukocytosis (Chronic) Anemia (Chronic) BPH (benign prostatic hyperplasia) (Chronic) Allergies irbesartan [From Avapro] Adverse Reaction (Verified 05/01/18 21:43) Other zolpidem [From Ambien] Adverse Reaction (Verified 05/01/18 21:43) Other Home Medications: Ambulatory Orders Medication Instructions Recorded Aspirin [Aspirin, Baby] 81 mg PO DAILY@0800 01/28/18 Clopidogrel Bisulfate [Plavix] 75 mg PO DAILY 01/28/18 Metoprolol Succinate 100 mg PO DAILY 01/28/18 Ropinirole HCl [Requip] 1 mg PO DAILY 01/28/18 Rosuvastatin Calcium [Crestor] 40 mg PO DAILY 01/28/18 Spironolactone 50 mg PO DAILY 01/28/18 Tamsulosin HCl [Flomax] 0.4 mg PO BID 01/28/18 hydrALAZINE [Apresoline] 50 mg PO TID 01/28/18 Ferrous Sulfate 325 mg PO BIDCM #60 tab 01/30/18 Ipratropium/Albuterol Sulfate 3 ml INHALATION Q4H.RT #120 01/30/18 [Duoneb] ampul.neb Finasteride [Proscar] 5 mg PO DAILY 04/08/18 Potassium Chloride [K-Dur] 10 meq PO DAILY 04/08/18 Amlodipine [Norvasc] 5 mg PO DAILY #30 tab 04/10/18 Bumetanide 2 mg PO BID #60 tab 04/10/18 Ciprofloxacin [Cipro] 500 mg PO BID #14 tab 04/10/18 Guaifenesin [Mucinex] 600 mg PO BID #14 tab 04/10/18 Sertraline HCl [Zoloft] 50 mg PO DAILY 30 Days #30 tab 04/10/18 Surgical History: coronary bypass surgery, tonsillectomy Smoking Status: Light Smoker (<10/day) - *Family History Maternal History Items: No pertinent history Paternal History Items: No pertinent history Review of Systems Constitutional: Reports: Fever. Denies: Chills, Weight Change HEENT: Denies: Head Aches, Sinus Congestion, Sinus Drainage Cardiovascular: Denies: Chest Pain, Palpitations Respiratory: Reports: Cough, Shortness of breath at rest, Wheezing. Denies: Sputum production Gastrointestinal: Denies: Abdominal Pain, Nausea, Vomiting Genitourinary: Denies: Dysuria Musculoskeletal: Denies: Joint Pain, Joint Tenderness Skin: Denies: Rash, Wounds Neurological: Denies: Numbness, Tingling, Focal weakness Psychiatric: Denies: Anxiety, Depression, Homicidal Ideations, Suicidal Ideations Hematologic/ Lymphatic: Denies: Easy Bruising, Easy Bleeding VTE Information - Inpt Only VTE Present on Admission: No VTE Mechan Device Prophylaxis: SCD's VTE Pharm Prophylaxis ordered?: No - Physical Exam General: Alert, Oriented x3, Cooperative HEENT: Atraumatic, Normocephalic Neck: Supple, No JVD, Negative Carotid Bruits Lungs: Clear to auscultation, Normal air movement, No rhonchi, Wheezes Cardiovascular: Regular rate, Regular Rhythm, Normal S1, Normal S2, No murmurs, No rub noted, No Gallop Abdomen: Bowel Sounds Present, Soft, Non Tender, Obese Extremities: Capillary Refill Less than 3 Seconds, Edema - 3+ lower ext edema Skin: No rashes, No breakdown Musculoskeletal: No Tenderness to Palpation of Joints or Extremities Neurological: Neuro grossly intact Psych/Mental Status: Normal Affect, Appropriate Vital Signs Temp Pulse Resp BP Pulse Ox 98.3 F 100 23 H 175/74 H 95 05/01/18 21:41 05/01/18 23:05 05/01/18 22:50 05/01/18 23:05 05/01/18 21:41 Oxygen Delivery Method Room Air Weight: 196 lb Body Mass Index (BMI) 30.7 Intake and Output for Last 24 Hours 04/29/18 04/30/18 05/01/18 23:59 23:59 23:59 Output Total 100 / 100 Balance -100 / -100 Laboratory Tests Past 24 Hrs 05/01/18 05/01/18 05/01/18 22:40 22:40 22:40 WBC 18.7 H RBC 3.68 L Hgb 11.1 L Hct 35.9 L MCV 97.6 H MCH 30.2 MCHC 30.9 L RDW 18.9 H RDW Differential 67.2 H Plt Count 200 MPV 9.3 Immature Gran % (Auto) 0.100 Neut % (Auto) 82.2 H Lymph % (Auto) 10.0 L Archuleta % (Auto) 7.1 Eos % (Auto) 0.4 Baso % (Auto) 0.2 Absolute Neuts (auto) 15.4 H Absolute Lymphs (auto) 1.86 Total Counted Not Reportable Differential Comment Sodium 137 Potassium 3.4 L Chloride 103 Carbon Dioxide 23.0 Anion Gap 11 BUN 36 H Creatinine 1.48 H Estim Creat Clear Calc 45.90 Est GFR (MDRD) Af Amer 61 Est GFR (MDRD) Non-Af 51 L BUN/Creatinine Ratio 24.3 H Glucose 107 H Calcium 9.1 Troponin I 0.025 B-Natriuretic Peptide 1906.3 H Assessment/Plan All Active Problems UTI (urinary tract infection) (Acute) Sepsis (Acute) Acute respiratory failure with hypoxia (Acute) Diastolic CHF (Acute) Respiratory failure with hypoxia (Acute) Congestive heart failure - admit to progressive care unit - initiate BIPAP therapy to assist with recruitment and reduce work of breathing - cbc, bmp, bntp in am - cycle cardiac enzymes - echo in am - levaquin 500mg IV q day - Zaroxolyn 5mg now in addition to 80mg lasix already received - continue routine medications - smoking cessation encouraged - scds for dvt prophylaxis Code Visit Inpatient E&M: 20479 Init Hosp L3
[2018-05-01 23:46] VITALS: BP 168/74; PULSE 92; RESP 22; O2SAT 99
[2018-05-01] MEDS: levoFLOXacin IV 750 MG/150 ML BAG 100 MG IV (23:48)
[2018-05-02] VITALS (31 sets, daily range): BP systolic 146–167; BP diastolic 58–79; PULSE 78–97; RESP 12–28; TEMP 36.4–37.2; O2SAT 94–100; BMI 30.7
--- NOTE | 2018-05-02 00:08 | NURSING ---
Called [facility] charge nurserebel to send patient to the floor.
--- NOTE | 2018-05-02 00:09 | ED.RN ---
this rn changed pt leg bag grider to a grider with a bag. pt drained 100ml prior to lasix being given. tolerated well, will continue to monitor.
[2018-05-02] MEDS: metOLazone 5 MG Tablet PO (01:29)
[2018-05-02] MEDS: Pramipexole Di-HCl 0.5 MG Tablet PO ×2 (01:29→21:32)
[2018-05-02] MEDS: guaiFENesin 600 MG Tablet PO ×3 (01:29→21:32)
[2018-05-02] MEDS: Tamsulosin HCl 0.4 MG Capsule PO ×3 (01:29→21:31)
[2018-05-02 01:31] LABS: Magnesium 2.6 mg/dL (1.6-2.6)
[2018-05-02 05:37] LABS: Basophil# 0.02 X10^3/uL; Basophil% 0.1 % (0-1); Eosinophil# 0.03 X10^3/uL; Eosinophils% 0.2 % (0-5); Hematocrit 34.4 % (40-54); Hemoglobin 10.3 g/dl (13.0-16.5); Lymphocyte % 3.8 % (19-41); Mean Corp Hgb Conc 29.9 g/gl (32-36); Mean Corpuscular Hgb 29.9 pg (27.0-32.0); Mean Corpuscular Volume 99.7 fL (80-94); Mean Platelet Vol. 9.5 fl (6.2-12.0); Monocyte# 1.71 X10^3/uL; Monocyte% 9.2 % (0-10); Neutrophil # 15.99 X10^3/uL (2.7-7.7); Neutrophil % 86.5 % (47-70); Platelet Count 198 K/mm3 (150-450); RBC Distribution Width CV 18.7 % (11.6-14.6); RBC Distribution Width SD 66.1 fl (35.1-43.9); Red Blood Count 3.45 M/mm3 (4.6-6.2); White Blood Count 18.5 K/mm3 (4.4-11.0)
[2018-05-02 05:52] LABS: Albumin, Serum 3.3 g/dL (3.2-5.0); Cholesterol 85 mg/dL (200); High Density Lipoprotein 59 mg/dL; Triglycerides 143 mg/dL; Very Low Density Lipoprotein 29 mg/dL (5-40)
[2018-05-02 05:53] LABS: ALB/GLOB Ratio 0.9 RATIO (0.9-2.4); AST(SGOT) 18 U/L (15-37); Alanine Aminotransfer ALT/SGPT 22 U/L (16-61); Albumin, Serum 3.3 g/dL (3.2-5.0); Alkaline Phosphatase 67 U/L (45-117); Anion Gap 8 (5-15); BUN 40 mg/dL (7-18); BUN/Creat Ratio 25.5 RATIO (10-20); Calcium,Total 8.7 mg/dL (8.5-10.1); Chloride 105 mmol/L (98-107); Creatinine, Serum 1.57 mg/dL (0.70-1.30); Differential Indicated SCAN CRITERIA MET; EST Glomerular Filtration Rate 47 mL/min (>60); Est Glom Filt Rate - Afr Amer 57 mL/min (>60); Estimated Creatinine Clearance 43.27 ml/min; Globulin 3.5 g/dL (2.2-4.2); Glucose 143 mg/dL (74-106); POSITIVE COUNT NO; POSITIVE DIFFERENTIAL YES; POSITIVE MORPHOLOGY YES; Potassium 4.4 mmol/L (3.5-5.1); Protein, Total 6.8 g/dL (6.4-8.2); Sodium Level 138 mmol/L (136-145)
[2018-05-02 06:52] LABS: Anisocytosis 1+; Differential Comment SCAN; Macrocytosis 1+; Polychromasia 1+
[2018-05-02] MEDS: Ipratropium/Albuterol Sulfate 3 ML AMPUL.NEB INHALATION ×5 (07:28→23:21)
[2018-05-02] MEDS: Aspirin 81 MG TAB.CHEW PO (08:09)
[2018-05-02] MEDS: Ferrous Sulfate 325 MG Tablet PO ×2 (08:09→18:18)
--- NOTE | 2018-05-02 09:39 | PN_ITS ---
Subjective: Patient is a 67-year-old gentleman who presented with exertional fatigue and progressive shortness of breath. Checks x-ray obtained on admission demonstrated bilateral pleural effusion with atelectasis. Patient was also noted to have elevated BNP and assessment of acute congestive heart failure made admitted to a monitored bed for further management Objective: GENERAL: Dyspneic at rest HEENT: Clear conjunctiva, moist oral mucosa NECK; supple, normal thyroid, no distended JVD. CHEST: Diminished to auscultation bilaterally, HEART: Regular S1 S2, ABDOMEN: soft, non-tender, normoactive bowel sounds, RECTAL: deferred EXTREMITIES: 2 + bilateral edema [employer]ER: Awake; no lateralizing signs. SKIN: As described above Vitals/I&O's: Vital Signs Temp Pulse Resp BP Pulse Ox 98.6 F 85 18 161/70 H 97 05/02/18 08:01 05/02/18 08:01 05/02/18 08:01 05/02/18 08:01 05/02/18 08:14 Oxygen Delivery Method Venturi Mask Weight: 88.9 kg Body Mass Index (BMI) 30.7 Intake and Output for Last 24 Hours 04/30/18 05/01/18 05/02/18 23:59 23:59 23:59 Intake Total 357 / 357 Output Total 375 / 375 Balance - Laboratory Results 05/02/18 02:00: Troponin I 0.027 05/02/18 05:10: WBC 18.5 H, RBC 3.45 L, Hgb 10.3 L, Hct 34.4 L, MCV 99.7 H, MCH 29.9, MCHC 29.9 L, RDW 18.7 H, RDW Differential 66.1 H, Plt Count 198, MPV 9.5, Immature Gran % (Auto) 0.200, Neut % (Auto) 86.5 H, Lymph % (Auto) 3.8 L, Maury % (Auto) 9.2, Eos % (Auto) 0.2, Baso % (Auto) 0.1, Absolute Neuts (auto) 16.0 H , Absolute Lymphs (auto) 0.70 L, Total Counted Not Reportable, Differential Comment SCAN, Polychromasia 1+, Anisocytosis 1+, Macrocytosis 1+ 05/02/18 05:10: B-Natriuretic Peptide 1759.1 H 05/02/18 05:10: Sodium Cancelled, Potassium Cancelled, Chloride Cancelled, Carbon Dioxide Cancelled, Anion Gap Cancelled, BUN Cancelled, Creatinine Cancelled, Est GFR (MDRD) Af Amer Cancelled, Est GFR (MDRD) Non-Af Cancelled, BUN/Creatinine Ratio Cancelled, Glucose Cancelled, Calcium Cancelled, Troponin I < 0.015, Albumin 3.3, Triglycerides 143, Cholesterol 85, LDL Cholesterol -3 L , VLDL Cholesterol 29, HDL Cholesterol 59 05/02/18 05:10: Sodium 138, Potassium 4.4, Chloride 105, Carbon Dioxide 25.0, Anion Gap 8, BUN 40 H, Creatinine 1.57 H, Estim Creat Clear Calc 43.27, Est GFR (MDRD) Af Amer 57 L, Est GFR (MDRD) Non-Af 47 L, BUN/Creatinine Ratio 25.5 H, Glucose 143 H, Calcium 8.7, Total Bilirubin 0.70, AST 18, ALT 22, Alkaline Phosphatase 67, Total Protein 6.8, Albumin 3.3, Globulin 3.5, Albumin/Globulin Ratio 0.9 Current Medications Albuterol/Ipratropium (Duoneb) 3 ml INHALATION Q4H.RT [facility] Last Admin: 05/02/18 07:28 Dose: 3 ml Amlodipine Besylate (Norvasc) 5 mg PO DAILY [facility] Aspirin (Aspirin, Baby) 81 mg PO DAILY@0800 [facility] Last Admin: 05/02/18 08:09 Dose: 81 mg Atorvastatin Calcium (Lipitor) 80 mg PO DAILY@2200 [facility] Clopidogrel Bisulfate (Plavix) 75 mg PO DAILY [facility] Ferrous [facility] Last Admin: 05/02/18 08:09 Dose: 325 mg Finasteride (Proscar) 5 mg PO DAILY [facility] Guaifenesin (Mucinex) 600 mg PO BID [facility] Last Admin: 05/02/18 01:29 Dose: 600 mg Hydralazine HCl (Apresoline) 25 mg PO BID [facility] Levofloxacin (Levaquin Iv) 250 mg in 50 mls @ 50 mls/hr IV Q24 [facility] Magnesium Hydroxide (Milk Of Magnesia) 30 ml PO DAILY PRN PRN Reason: Constipation Metoprolol Succinate (Toprol Xl (Beta Kadi)) 100 mg PO DAILY [facility] Potassium Chloride (K-Dur) [facility]q [facility] Last Admin: 05/02/18 08:09 Dose: 10 meq Pramipexole Dihydrochloride (Mirapex) 0.5 mg PO DAILY@2200 [facility] Last Admin: 05/02/18 01:29 Dose: 0.5 mg Sodium Chloride () 5 - 30 ml IV UD PRN PRN Reason: SALINE FLUSH Spironolactone (Aldactone) 50 mg PO DAILY [facility] Tamsulosin HCl (Flomax) 0.4 mg PO BID [facility] Last Admin: 05/02/18 01:29 Dose: 0.4 mg Medical Necessity - Tobacco Use Smoking Status: Light Smoker (<10/day) Assessment/Plan All Active Problems UTI (urinary tract infection) (Acute) Sepsis (Acute) Acute respiratory failure with hypoxia (Acute) Diastolic CHF (Acute) Respiratory failure with hypoxia (Acute) Patient is a 67-year-old gentleman who presented with exertional fatigue and progressive shortness of breath. Checks x-ray obtained on admission demonstrated bilateral pleural effusion with atelectasis. Patient was also noted to have elevated BNP and assessment of acute congestive heart failure made admitted to a monitored bed for further management 1. Acute diastolic congestive heart failure: Echo on 04/08/2018 demonstrated features consistent with diastolic dysfunction with an EF of 55% and mild pulmonary hypertension with RSVP of 42 mmHg patient has been admitted to monitored bed managed with fluid restriction, strict input and output daily weights as well as IV Lasix 2. CAD with previous CABG patient is on Plavix as well as statin therapy 3. Hypertension-blood pressure controlled, home medications continued with dose adjustment as needed 4. Dyslipidemia-patient is on statin therapy, continued at home dose 6. COPD; nebs prn chest x-ray obtained on admission could not rule out an infectious etiology CT of the chest without contrast subsequently ordered 7. BPH, status post chronic Charles catheter 8. Kidney disease stage III patient kidney function appears to be at baseline 9. DVT prophylaxis SC Lovenox Clinical Impression(s) from Imaging Studies Chest X-Ray 05/01/18 22:55 IMPRESSION: Bilateral pleural effusions atelectasis. Consider pulmonary edema cannot exclude infection. Status post sternotomy. Electronically Signed: Stephanie Martínez MD at 23:10 EDT Tel , Service support , Active Medications Albuterol/Ipratropium (Duoneb) 3 ml INHALATION Q4H.RT [facility] Last Admin: 05/02/18 07:28 Dose: 3 ml Amlodipine Besylate (Norvasc) 5 mg PO DAILY [facility] Aspirin (Aspirin, Baby) 81 mg PO DAILY@0800 [facility] Last Admin: 05/02/18 08:09 Dose: 81 mg Atorvastatin Calcium (Lipitor) 80 mg PO DAILY@2200 [facility] Clopidogrel Bisulfate (Plavix) 75 mg PO DAILY [facility] Ferrous Sulfate (Ferrous Sulfate) [facility] Last Admin: 05/02/18 08:09 Dose: 325 mg Finasteride (Proscar) 5 mg PO DAILY [facility] Guaifenesin (Mucinex) 600 mg PO BID [facility] Last Admin: 05/02/18 01:29 Dose: 600 mg Hydralazine HCl (Apresoline) 25 mg PO BID [facility] Levofloxacin (Levaquin Iv) 250 mg in 50 mls @ 50 mls/hr IV Q24 [facility] Magnesium Hydroxide (Milk Of Magnesia) 30 ml PO DAILY PRN PRN Reason: Constipation Metoprolol Succinate (Toprol Xl (Beta Kadi)) 100 mg PO DAILY [facility] Potassium Chloride (K-Dur) [facility] meq [facility] Last Admin: 05/02/18 08:09 Dose: 10 meq Pramipexole Dihydrochloride (Mirapex) 0.5 mg PO DAILY@2200 [facility] Last Admin: 05/02/18 01:29 Dose: 0.5 mg Sodium Chloride () 5 - 30 ml IV UD PRN PRN Reason: SALINE FLUSH Spironolactone (Aldactone) 50 mg PO DAILY [facility] Tamsulosin HCl (Flomax) 0.4 mg PO BID [facility] Last Admin: 05/02/18 01:29 Dose: 0.4 mg Code Visit Inpatient E&M: 51196 [facility] Hosp L3
--- NOTE | 2018-05-02 09:49 | CT_ITS ---
STUDY: CT CHEST WITHOUT CONTRAST REASON FOR EXAM: Male, 67 years old. COPD. Wheezing. End-stage chronic renal disease. RADIATION DOSAGE (If Supplied By Facility): CTDIvol = ( 16.32 ) mGy, DLP = ( 537.7 ) mGycm TECHNIQUE: Transaxial imaging was performed without the administration of intravenous contrast material. Multiplanar coronal and sagittal images were reformatted. Individualized dose optimization techniques were used for this CT. COMPARISON: Comparison is made with prior examination dated October 30, 2009. FINDINGS: There are small bilateral pleural effusions with underlying infiltration and/or atelectasis. Emphysematous changes worse in the upper lobes with a small cystic bulla. Sternal cerclage wires and vascular clips are present from a prior sternotomy and coronary artery bypass graft procedure (CABG). There are calcifications of the coronary arteries. There are multiple small lymph nodes within the mediastinum, which are normal in size and morphology most compatible with reactive lymph hyperplasia. Normal hilar regions. Normal unenhanced pulmonary arteries. There is atherosclerotic calcification of the aortic arch with tortuosity and elongation of the aortic arch and descending thoracic aorta. There are multi-level degenerative changes of the thoracic spine. There is no demonstrated abnormality of the visualized upper abdomen. CT/Chest without Contrast IMPRESSION: Small bilateral pleural effusions with underlying atelectasis and/or infiltration. Emphysematous changes worse in the upper lobes. Electronically Signed: Deven Hensley MD at 10:49 EDT Tel [phone], Service support ,
[2018-05-02] MEDS: Spironolactone 50 MG Tablet PO (10:39)
[2018-05-02] MEDS: hydrALAZINE 25 MG Tablet PO ×2 (10:40→21:31)
[2018-05-02] MEDS: Clopidogrel Bisulfate 75 MG Tablet PO (10:41)
[2018-05-02] MEDS: amLODIPine 5 MG Tablet PO (10:41)
[2018-05-02] MEDS: Finasteride 5 MG Tablet PO (10:42)
[2018-05-02] MEDS: Metoprolol(XL)Succ 100 MG Tablet PO (10:42)
[2018-05-02] MEDS: levoFLOXacin IV 250 MG/50 ML BAG 50 MG IV (10:45)
--- NOTE | 2018-05-02 12:51 | CPS ---
Patient reluctant but requested bipap, decreased settings to 14/7 for better tolerance.
[2018-05-02] MEDS: Furosemide 40 MG/4 ML Vial IV ×2 (13:29→21:31)
--- NOTE | 2018-05-02 13:54 | CASEMGMT ---
Face to Face with patient for initial transition planning/care coordination assessment. RAYMOND SPENCER introduced self and role at [facility], pt voices understanding and consents to assessment at this time. Pt is sitting up in bed with bipap in place at this time and pt is in no distress. Pt is A/O x4 at this time and answers all questions appropriately at this time. Care providers, pharmacy, and demographics verified. See attached link. Pt voices no further concerns/needs at this time. Advised pt to ask for CM if any further questions/concerns/needs arise, voices understanding. CM to follow for any further needs(ie home oxygen, etc.)/discharge planning. PLAN: [place] RAYMOND SPENCER
--- NOTE | 2018-05-02 13:54 | CPS ---
Patient taken off BiPAP and placed on 50% venti mask.
--- NOTE | 2018-05-02 16:12 | NURSING ---
spoke w/teresita Frost grider at t6his time time.
[2018-05-02] MEDS: ALPRAZolam 0.5 MG Tablet PO (18:19)
[2018-05-02] MEDS: 0.9% NaCl Peripheral Flush Adult/Peds IV (21:31)
[2018-05-02] MEDS: Atorvastatin Calcium 80 MG Tablet PO (21:32)
[2018-05-03] VITALS (20 sets, daily range): BP systolic 139–176; BP diastolic 48–64; PULSE 63–100; RESP 16–20; TEMP 36.6–37.1; O2SAT 20–99
--- NOTE | 2018-05-03 00:28 | CPS ---
Patient refused BiPAP at this time
[2018-05-03] MEDS: Ipratropium/Albuterol Sulfate 3 ML AMPUL.NEB INHALATION ×6 (03:16→23:08)
[2018-05-03] MEDS: Enoxaparin 30 MG/0.3 ML Syringe SC (05:06)
[2018-05-03] MEDS: Furosemide 40 MG/4 ML Vial IV ×3 (05:06→21:20)
[2018-05-03] MEDS: 0.9% NaCl Peripheral Flush Adult/Peds IV ×3 (05:06→21:20)
[2018-05-03] MEDS: levoFLOXacin 250 MG Tablet PO (05:06)
[2018-05-03 06:36] LABS: Hematocrit 33.4 % (40-54); Hemoglobin 10.4 g/dl (13.0-16.5); Mean Corp Hgb Conc 31.1 g/gl (32-36); Mean Corpuscular Hgb 30.8 pg (27.0-32.0); Mean Corpuscular Volume 98.8 fL (80-94); Mean Platelet Vol. 9.4 fl (6.2-12.0); Platelet Count 178 K/mm3 (150-450); RBC Distribution Width CV 18.5 % (11.6-14.6); RBC Distribution Width SD 64.6 fl (35.1-43.9); Red Blood Count 3.38 M/mm3 (4.6-6.2); White Blood Count 12.1 K/mm3 (4.4-11.0)
[2018-05-03 06:41] LABS: Scan Indicated on CBC? Y/N NO
[2018-05-03 07:01] LABS: Anion Gap 10 (5-15); BUN 40 mg/dL (7-18); BUN/Creat Ratio 24.7 RATIO (10-20); Calcium,Total 8.9 mg/dL (8.5-10.1); Chloride 100 mmol/L (98-107); Creatinine, Serum 1.62 mg/dL (0.70-1.30); EST Glomerular Filtration Rate 46 mL/min (>60); Est Glom Filt Rate - Afr Amer 55 mL/min (>60); Estimated Creatinine Clearance 41.94 ml/min; Glucose 206 mg/dL (74-106); Magnesium 2.7 mg/dL (1.6-2.6); Potassium 3.2 mmol/L (3.5-5.1); Sodium Level 137 mmol/L (136-145)
[2018-05-03] MEDS: Ferrous Sulfate 325 MG Tablet PO ×2 (08:29→17:01)
[2018-05-03] MEDS: Aspirin 81 MG TAB.CHEW PO (08:29)
[2018-05-03] MEDS: Metoprolol(XL)Succ 100 MG Tablet PO (08:30)
[2018-05-03] MEDS: amLODIPine 5 MG Tablet PO (08:31)
[2018-05-03] MEDS: Finasteride 5 MG Tablet PO (08:31)
[2018-05-03] MEDS: guaiFENesin 600 MG Tablet PO ×2 (08:31→21:20)
[2018-05-03] MEDS: Clopidogrel Bisulfate 75 MG Tablet PO (08:32)
[2018-05-03] MEDS: Tamsulosin HCl 0.4 MG Capsule PO ×2 (08:32→21:20)
[2018-05-03] MEDS: Spironolactone 50 MG Tablet PO (08:33)
[2018-05-03] MEDS: hydrALAZINE 25 MG Tablet PO ×2 (08:33→21:20)
--- NOTE | 2018-05-03 09:40 | PCM.PN.HOSP ---
Subjective: Patient seen admitted to improvement in his breathing status. CT of the chest obtained as part of his evaluation demonstrated Small bilateral pleural effusions with underlying atelectasis and/or infiltration. Emphysematous changes worse in the upper lobes patient remains in negative fluid balance; potassium is 3.2 this a.m. correction initiated Objective: GENERAL: Dyspneic at rest HEENT: Clear conjunctiva, moist oral mucosa NECK; supple, normal thyroid, no distended JVD. 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 SKIN: As described above Vitals/I&O's: Vital Signs Temp Pulse Resp BP Pulse Ox 98.4 F 100 20 H 174/64 H 98 05/03/18 08:25 05/03/18 08:33 05/03/18 08:25 05/03/18 08:33 05/03/18 08:25 Oxygen Flow Rate (L/min) 6 Oxygen Delivery Method Nasal Cannula Weight: 86 kg Body Mass Index (BMI) 30.7 Intake and Output for Last 24 Hours 05/01/18 05/02/18 05/03/18 23:59 23:59 23:59 Intake Total 1185 / 1185 120 / 120 Output Total 1775 / 1775 1375 / 1375 Balance -590 / -590 -1255 / -1255 Laboratory Results 05/03/18 06:18: WBC 12.1 H, RBC 3.38 L, Hgb 10.4 L, Hct 33.4 L, MCV 98.8 H, MCH 30.8, MCHC 31.1 L, RDW 18.5 H, RDW Differential 64.6 H, Plt Count 178, MPV 9.4 05/03/18 06:18: Sodium 137, Potassium 3.2 L, Chloride 100, Carbon Dioxide 27.0, Anion Gap 10, BUN 40 H, Creatinine 1.62 H, Estim Creat Clear Calc 41.94, Est GFR (MDRD) Af Amer 55 L, Est GFR (MDRD) Non-Af 46 L, BUN/Creatinine Ratio 24.7 H, Glucose 206 H, Calcium 8.9, Magnesium 2.7 H Current Medications Acetaminophen (Tylenol) 650 mg PO Q6H PRN PRN PRN Reason: Mild Pain (scale 0-3)/T>100.7 Al Hydroxide/Mg Hydroxide (Mylanta Ii) 30 ml PO Q6H PRN PRN PRN Reason: Gastric Burning Albuterol/Ipratropium (Duoneb) 3 ml INHALATION Q4H.RT [facility] Last Admin: 05/03/18 07:04 Dose: 3 ml Amlodipine Besylate (Norvasc) 5 mg PO DAILY [facility] Last Admin: 05/03/18 08:31 Dose: 5 mg Aspirin (Aspirin, Baby) 81 mg PO DAILY@0800 [facility] Last Admin: 05/03/18 08:29 Dose: 81 mg Atorvastatin Calcium (Lipitor) 80 mg PO DAILY@2200 [facility] Last Admin: 05/02/18 21:32 Dose: 80 mg Bisacodyl (Dulcolax) 10 mg PO DAILY PRN PRN PRN Reason: Constipation Clopidogrel Bisulfate (Plavix) 75 mg PO DAILY [facility] Last Admin: 05/03/18 08:32 Dose: 75 mg Docusate Sodium (Colace) 200 mg PO BID PRN PRN PRN Reason: Constipation Enoxaparin Sodium (Lovenox) 30 mg SC DAILY@0600 [facility] Last Admin: 05/03/18 05:06 Dose: 30 mg [facility]ous [facility] ([facility]) [facility] Admin: 05/03/18 08:29 Dose: 325 mg Finasteride (Proscar) 5 mg PO DAILY [facility] Last Admin: 05/03/18 08:31 Dose: 5 mg Furosemide (Lasix) 40 mg IV Q8 [facility] Last Admin: 05/03/18 05:06 Dose: 40 mg Guaifenesin (Mucinex) 600 mg PO BID [facility] Last Admin: 05/03/18 08:31 Dose: 600 mg Hydralazine HCl (Apresoline) 25 mg PO BID [facility] Last Admin: 05/03/18 08:33 Dose: 25 mg Levofloxacin (Levaquin Tablet) 250 mg PO DAILY@0600 [facility] Last Admin: 05/03/18 05:06 Dose: 250 mg Magnesium Hydroxide (Milk Of Magnesia) 30 ml PO DAILY PRN PRN Reason: Constipation Metoprolol Succinate (Toprol Xl (Beta Kadi)) 100 mg PO DAILY [facility] Last Admin: 05/03/18 08:30 Dose: 100 mg Morphine Sulfate () 2 - 4 mg IV Q3H PRN PRN PRN Reason: Severe Pain (pain scale 6-10) Morphine Sulfate () 2 - 4 mg IV Q3H PRN PRN PRN Reason: Severe Pain (pain scale 6-10) Oxycodone HCl (Oxyir) 5 mg PO Q4H PRN PRN PRN Reason: Moderate Pain (pain scale 4-5) Potassium Chloride (K-Dur) 10 meq PO DAILYCM [facility] Last Admin: 05/03/18 08:31 Dose: 10 meq Pramipexole Dihydrochloride (Mirapex) 0.5 mg PO DAILY@2200 [facility] Last Admin: 05/02/18 21:32 Dose: 0.5 mg Prochlorperazine Edisylate (Compazine Iv) 10 mg IV Q6H PRN PRN PRN Reason: Nausea/Vomiting Sodium Chloride () 5 - 30 ml IV UD PRN PRN Reason: SALINE FLUSH Last Admin: 05/03/18 05:06 Dose: 10 ml Spironolactone (Aldactone) 50 mg PO DAILY [facility] Last Admin: 05/03/18 08:33 Dose: 50 mg Tamsulosin HCl (Flomax) 0.4 mg PO BID [facility] Last Admin: 05/03/18 08:32 Dose: 0.4 mg Medical Necessity - Tobacco Use Smoking Status: Light Smoker (<10/day) Assessment/Plan All Active Problems UTI (urinary tract infection) (Acute) Sepsis (Acute) Acute respiratory failure with hypoxia (Acute) Diastolic CHF (Acute) Respiratory failure with hypoxia (Acute) Patient is a 67-year-old gentleman who presented with exertional fatigue and progressive shortness of breath. Checks x-ray obtained on admission demonstrated bilateral pleural effusion with atelectasis. Patient was also noted to have elevated BNP and assessment of acute congestive heart failure made admitted to a monitored bed for further management 1. Acute diastolic congestive heart failure: Echo on 04/08/2018 demonstrated features consistent with diastolic dysfunction with an EF of 55% and mild pulmonary hypertension with RSVP of 42 mmHg patient has been admitted to monitored bed managed with fluid restriction, strict input and output daily weights as well as IV Lasix 2. Acute respiratory failure present on admission patient was placed on BiPAP which has since been weaned off. Plan is for patient to be assessed for home oxygen needs prior to discharge 3. Pneumonia: Suspected to be secondary to streptococci pneumonia. Patient placed on Levaquin and supplemental oxygen titrated to keep also is greater than 90 4. CAD with previous CABG patient is on Plavix as well as statin therapy 5. Hypertension-blood pressure controlled, home medications continued with dose adjustment as needed 6. Dyslipidemia-patient is on statin therapy, continued at home dose 7. COPD; nebs prn chest x-ray obtained on admission could not rule out an infectious etiology CT of the chest without contrast subsequently ordered 8. BPH, status post chronic Charles catheter 9. Kidney disease stage III patient kidney function appears to be at baseline 10. DVT prophylaxis SC Lovenox Clinical Impression(s) from Imaging Studies Chest X-Ray 05/01/18 22:55 IMPRESSION: Bilateral pleural effusions atelectasis. Consider pulmonary edema cannot exclude infection. Status post sternotomy. Electronically Signed: Stephanie Martínez MD at 23:10 EDT Tel , Service support , Chest CT 05/02/18 09:49 IMPRESSION: Small bilateral pleural effusions with underlying atelectasis and/or infiltration. Emphysematous changes worse in the upper lobes. Electronically Signed: Deven Hensley MD at 10:49 EDT Tel [phone], Service support , Active Medications Acetaminophen (Tylenol) 650 mg PO Q6H PRN PRN PRN Reason: Mild Pain (scale 0-3)/T>100.7 Al Hydroxide/Mg Hydroxide (Mylanta Ii) 30 ml PO Q6H PRN PRN PRN Reason: Gastric Burning Albuterol/Ipratropium (Duoneb) 3 ml INHALATION Q4H.RT [facility] Last Admin: 05/03/18 07:04 Dose: 3 ml Amlodipine Besylate (Norvasc) 5 mg PO DAILY [facility] Last Admin: 05/03/18 08:31 Dose: 5 mg Aspirin (Aspirin, Baby) 81 mg PO DAILY@0800 [facility] Last Admin: 05/03/18 08:29 Dose: 81 mg Atorvastatin Calcium (Lipitor) 80 mg PO DAILY@2200 [facility] Last Admin: 05/02/18 21:32 Dose: 80 mg Bisacodyl (Dulcolax) 10 mg PO DAILY PRN PRN PRN Reason: Constipation Clopidogrel Bisulfate (Plavix) 75 mg PO DAILY [facility] Last Admin: 05/03/18 08:32 Dose: 75 mg Docusate Sodium (Colace) 200 mg PO BID PRN PRN PRN Reason: Constipation Enoxaparin Sodium (Lovenox) 30 mg SC DAILY@0600 [facility] Last Admin: 05/03/18 05:06 Dose: 30 mg Ferrous Sulfate ([facility]ous Sulfate) [facility] Last Admin: 05/03/18 08:29 Dose: 325 mg Finasteride (Proscar) 5 mg PO DAILY [facility] Last Admin: 05/03/18 08:31 Dose: 5 mg Furosemide (Lasix) 40 mg IV Q8 [facility] Last Admin: 05/03/18 05:06 Dose: 40 mg Guaifenesin (Mucinex) 600 mg PO BID [facility] Last Admin: 05/03/18 08:31 Dose: 600 mg Hydralazine HCl (Apresoline) 25 mg PO BID [facility] Last Admin: 05/03/18 08:33 Dose: 25 mg Levofloxacin (Levaquin Tablet) 250 mg PO DAILY@0600 [facility] Last Admin: 05/03/18 05:06 Dose: 250 mg Magnesium Hydroxide (Milk Of Magnesia) 30 ml PO DAILY PRN PRN Reason: Constipation Metoprolol Succinate (Toprol Xl (Beta Kadi)) 100 mg PO DAILY [facility] Last Admin: 05/03/18 08:30 Dose: 100 mg Morphine Sulfate () 2 - 4 mg IV Q3H PRN PRN PRN Reason: Severe Pain (pain scale 6-10) Morphine Sulfate () 2 - 4 mg IV Q3H PRN PRN PRN Reason: Severe Pain (pain scale 6-10) Oxycodone HCl (Oxyir) 5 mg PO Q4H PRN PRN PRN Reason: Moderate Pain (pain scale 4-5) Potassium Chloride (K-Dur) [facility] Admin: 05/03/18 08:31 Dose: 10 meq Pramipexole Dihydrochloride (Mirapex) 0.5 mg PO DAILY@2200 [facility] Last Admin: 05/02/18 21:32 Dose: 0.5 mg Prochlorperazine Edisylate (Compazine Iv) 10 mg IV Q6H PRN PRN PRN Reason: Nausea/Vomiting Sodium Chloride () 5 - 30 ml IV UD PRN PRN Reason: SALINE FLUSH Last Admin: 05/03/18 05:06 Dose: 10 ml Spironolactone (Aldactone) 50 mg PO DAILY [facility] Last Admin: 05/03/18 08:33 Dose: 50 mg Tamsulosin HCl (Flomax) 0.4 mg PO BID [facility] Last Admin: 05/03/18 08:32 Dose: 0.4 mg Code Visit Inpatient E&M: 99173 Subs Hosp L3
--- NOTE | 2018-05-03 09:44 | PN_ITS ---
Subjective: Patient seen admitted to improvement in his breathing status. CT of the chest obtained as part of his evaluation demonstrated Small bilateral pleural effusions with underlying atelectasis and/or infiltration. Emphysematous changes worse in the upper lobes patient remains in negative fluid balance; potassium is 3.2 this a.m. correction initiated Objective: GENERAL: Dyspneic at rest HEENT: Clear conjunctiva, moist oral mucosa NECK; supple, normal thyroid, no distended JVD. 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 SKIN: As described above Vitals/I&O's: Vital Signs Temp Pulse Resp BP Pulse Ox 98.4 F 100 20 H 174/64 H 98 05/03/18 08:25 05/03/18 08:33 05/03/18 08:25 05/03/18 08:33 05/03/18 08:25 Oxygen Flow Rate (L/min) 6 Oxygen Delivery Method Nasal Cannula Weight: 86 kg Body Mass Index (BMI) 30.7 Intake and Output for Last 24 Hours 05/01/18 05/02/18 05/03/18 23:59 23:59 23:59 Intake Total 1185 / 1185 120 / 120 Output Total 1775 / 1775 1375 / 1375 Balance -590 / -590 -1255 / -1255 Laboratory Results 05/03/18 06:18: WBC 12.1 H, RBC 3.38 L, Hgb 10.4 L, Hct 33.4 L, MCV 98.8 H, MCH 30.8, MCHC 31.1 L, RDW 18.5 H, RDW Differential 64.6 H, Plt Count 178, MPV 9.4 05/03/18 06:18: Sodium 137, Potassium 3.2 L, Chloride 100, Carbon Dioxide 27.0, Anion Gap 10, BUN 40 H, Creatinine 1.62 H, Estim Creat Clear Calc 41.94, Est GFR (MDRD) Af Amer 55 L, Est GFR (MDRD) Non-Af 46 L, BUN/Creatinine Ratio 24.7 H , Glucose 206 H, Calcium 8.9, Magnesium 2.7 H Current Medications Acetaminophen (Tylenol) 650 mg PO Q6H PRN PRN PRN Reason: Mild Pain (scale 0-3)/T>100.7 Al Hydroxide/Mg Hydroxide (Mylanta Ii) 30 ml PO Q6H PRN PRN PRN Reason: Gastric Burning Albuterol/Ipratropium (Duoneb) 3 ml INHALATION Q4H.RT [facility] Last Admin: 05/03/18 07:04 Dose: 3 ml Amlodipine Besylate (Norvasc) 5 mg PO DAILY [facility] Last Admin: 05/03/18 08:31 Dose: 5 mg Aspirin (Aspirin, Baby) 81 mg PO DAILY@0800 [facility] Last Admin: 05/03/18 08:29 Dose: 81 mg Atorvastatin Calcium (Lipitor) 80 mg PO DAILY@2200 [facility] Last Admin: 05/02/18 21:32 Dose: 80 mg Bisacodyl (Dulcolax) 10 mg PO DAILY PRN PRN PRN Reason: Constipation Clopidogrel Bisulfate (Plavix) 75 mg PO DAILY [facility] Last Admin: 05/03/18 08:32 Dose: 75 mg Docusate Sodium (Colace) 200 mg PO BID PRN PRN PRN Reason: Constipation Enoxaparin Sodium (Lovenox) 30 mg SC DAILY@0600 [facility] Last Admin: 05/03/18 05:06 Dose: 30 mg [facility]ous Sulf[facility] ([facility]) [facility] Admin: 05/03/18 08:29 Dose: 325 mg Finasteride (Proscar) 5 mg PO DAILY [facility] Last Admin: 05/03/18 08:31 Dose: 5 mg Furosemide (Lasix) 40 mg IV Q8 [facility] Last Admin: 05/03/18 05:06 Dose: 40 mg Guaifenesin (Mucinex) 600 mg PO BID [facility] Last Admin: 05/03/18 08:31 Dose: 600 mg Hydralazine HCl (Apresoline) 25 mg PO BID [facility] Last Admin: 05/03/18 08:33 Dose: 25 mg Levofloxacin (Levaquin Tablet) 250 mg PO DAILY@0600 [facility] Last Admin: 05/03/18 05:06 Dose: 250 mg Magnesium Hydroxide (Milk Of Magnesia) 30 ml PO DAILY PRN PRN Reason: Constipation Metoprolol Succinate (Toprol Xl (Beta Kadi)) 100 mg PO DAILY [facility] Last Admin: 05/03/18 08:30 Dose: 100 mg Morphine Sulfate () 2 - 4 mg IV Q3H PRN PRN PRN Reason: Severe Pain (pain scale 6-10) Morphine Sulfate () 2 - 4 mg IV Q3H PRN PRN PRN Reason: Severe Pain (pain scale 6-10) Oxycodone HCl (Oxyir) 5 mg PO Q4H PRN PRN PRN Reason: Moderate Pain (pain scale 4-5) Potassium Chloride (K-Dur) 10 meq PO DAILYCM [facility] Last Admin: 05/03/18 08:31 Dose: 10 meq Pramipexole Dihydrochloride (Mirapex) 0.5 mg PO DAILY@2200 [facility] Last Admin: 05/02/18 21:32 Dose: 0.5 mg Prochlorperazine Edisylate (Compazine Iv) 10 mg IV Q6H PRN PRN PRN Reason: Nausea/Vomiting Sodium Chloride () 5 - 30 ml IV UD PRN PRN Reason: SALINE FLUSH Last Admin: 05/03/18 05:06 Dose: 10 ml Spironolactone (Aldactone) 50 mg PO DAILY [facility] Last Admin: 05/03/18 08:33 Dose: 50 mg Tamsulosin HCl (Flomax) 0.4 mg PO BID [facility] Last Admin: 05/03/18 08:32 Dose: 0.4 mg Medical Necessity - Tobacco Use Smoking Status: Light Smoker (<10/day) Assessment/Plan All Active Problems UTI (urinary tract infection) (Acute) Sepsis (Acute) Acute respiratory failure with hypoxia (Acute) Diastolic CHF (Acute) Respiratory failure with hypoxia (Acute) Patient is a 67-year-old gentleman who presented with exertional fatigue and progressive shortness of breath. Checks x-ray obtained on admission demonstrated bilateral pleural effusion with atelectasis. Patient was also noted to have elevated BNP and assessment of acute congestive heart failure made admitted to a monitored bed for further management 1. Acute diastolic congestive heart failure: Echo on 04/08/2018 demonstrated features consistent with diastolic dysfunction with an EF of 55% and mild pulmonary hypertension with RSVP of 42 mmHg patient has been admitted to monitored bed managed with fluid restriction, strict input and output daily weights as well as IV Lasix 2. Acute respiratory failure present on admission patient was placed on BiPAP which has since been weaned off. Plan is for patient to be assessed for home oxygen needs prior to discharge 3. Pneumonia: Suspected to be secondary to streptococci pneumonia. Patient placed on Levaquin and supplemental oxygen titrated to keep also is greater than 90 4. CAD with previous CABG patient is on Plavix as well as statin therapy 5. Hypertension-blood pressure controlled, home medications continued with dose adjustment as needed 6. Dyslipidemia-patient is on statin therapy, continued at home dose 7. COPD; nebs prn chest x-ray obtained on admission could not rule out an infectious etiology CT of the chest without contrast subsequently ordered 8. BPH, status post chronic Charles catheter 9. Kidney disease stage III patient kidney function appears to be at baseline 10. DVT prophylaxis SC Lovenox Clinical Impression(s) from Imaging Studies Chest X-Ray 05/01/18 22:55 IMPRESSION: Bilateral pleural effusions atelectasis. Consider pulmonary edema cannot exclude infection. Status post sternotomy. Electronically Signed: Stephanie Martínez MD at 23:10 EDT Tel , Service support , Chest CT 05/02/18 09:49 IMPRESSION: Small bilateral pleural effusions with underlying atelectasis and/or infiltration. Emphysematous changes worse in the upper lobes. Electronically Signed: Devne Hensley MD at 10:49 EDT Tel [phone], Service support , Active Medications Acetaminophen (Tylenol) 650 mg PO Q6H PRN PRN PRN Reason: Mild Pain (scale 0-3)/T>100.7 Al Hydroxide/Mg Hydroxide (Mylanta Ii) 30 ml PO Q6H PRN PRN PRN Reason: Gastric Burning Albuterol/Ipratropium (Duoneb) 3 ml INHALATION Q4H.RT [facility] Last Admin: 05/03/18 07:04 Dose: 3 ml Amlodipine Besylate (Norvasc) 5 mg PO DAILY [facility] Last Admin: 05/03/18 08:31 Dose: 5 mg Aspirin (Aspirin, Baby) 81 mg PO DAILY@0800 [facility] Last Admin: 05/03/18 08:29 Dose: 81 mg Atorvastatin Calcium (Lipitor) 80 mg PO DAILY@2200 [facility] Last Admin: 05/02/18 21:32 Dose: 80 mg Bisacodyl (Dulcolax) 10 mg PO DAILY PRN PRN PRN Reason: Constipation Clopidogrel Bisulfate (Plavix) 75 mg PO DAILY [facility] Last Admin: 05/03/18 08:32 Dose: 75 mg Docusate Sodium (Colace) 200 mg PO BID PRN PRN PRN Reason: Constipation Enoxaparin Sodium (Lovenox) 30 mg SC DAILY@0600 [facility] Last Admin: 05/03/18 05:06 Dose: 30 mg Ferrous Sulfate ([facility]ulfate) [facility] Admin: 05/03/18 08:29 Dose: 325 mg Finasteride (Proscar) 5 mg PO DAILY [facility] Last Admin: 05/03/18 08:31 Dose: 5 mg Furosemide (Lasix) 40 mg IV Q8 [facility] Last Admin: 05/03/18 05:06 Dose: 40 mg Guaifenesin (Mucinex) 600 mg PO BID [facility] Last Admin: 05/03/18 08:31 Dose: 600 mg Hydralazine HCl (Apresoline) 25 mg PO BID [facility] Last Admin: 05/03/18 08:33 Dose: 25 mg Levofloxacin (Levaquin Tablet) 250 mg PO DAILY@0600 [facility] Last Admin: 05/03/18 05:06 Dose: 250 mg Magnesium Hydroxide (Milk Of Magnesia) 30 ml PO DAILY PRN PRN Reason: Constipation Metoprolol Succinate (Toprol Xl (Beta Kadi)) 100 mg PO DAILY [facility] Last Admin: 05/03/18 08:30 Dose: 100 mg Morphine Sulfate () 2 - 4 mg IV Q3H PRN PRN PRN Reason: Severe Pain (pain scale 6-10) Morphine Sulfate () 2 - 4 mg IV Q3H PRN PRN PRN Reason: Severe Pain (pain scale 6-10) Oxycodone HCl (Oxyir) 5 mg PO Q4H PRN PRN PRN Reason: Moderate Pain (pain scale 4-5) Potassium Chloride (K-Dur) [facility] Admin: 05/03/18 08:31 Dose: 10 meq Pramipexole Dihydrochloride (Mirapex) 0.5 mg PO DAILY@2200 [facility] Last Admin: 05/02/18 21:32 Dose: 0.5 mg Prochlorperazine Edisylate (Compazine Iv) 10 mg IV Q6H PRN PRN PRN Reason: Nausea/Vomiting Sodium Chloride () 5 - 30 ml IV UD PRN PRN Reason: SALINE FLUSH Last Admin: 05/03/18 05:06 Dose: 10 ml Spironolactone (Aldactone) 50 mg PO DAILY [facility] Last Admin: 05/03/18 08:33 Dose: 50 mg Tamsulosin HCl (Flomax) 0.4 mg PO BID [facility] Last Admin: 05/03/18 08:32 Dose: 0.4 mg Code Visit Inpatient E&M: 80210 Subs Hosp L3
--- NOTE | 2018-05-03 15:44 | NURSING ---
This RN taking over care at this time
[2018-05-03] MEDS: Pramipexole Di-HCl 0.5 MG Tablet PO (21:20)
[2018-05-03] MEDS: Atorvastatin Calcium 80 MG Tablet PO (21:21)
--- NOTE | 2018-05-03 23:53 | CPS ---
Patient refuses Bipap.
--- NOTE | 2018-05-03 23:54 | CPS ---
Patient refuses Bipap.
[2018-05-04] VITALS (11 sets, daily range): BP systolic 155–158; BP diastolic 58–70; PULSE 72–87; RESP 16–20; TEMP 36.6–36.9; O2SAT 92–97
--- NOTE | 2018-05-04 01:07 | CPS ---
Patient refuses Bipap.
--- NOTE | 2018-05-04 01:09 | CPS ---
Patient refuses Bipap.
[2018-05-04] MEDS: Ipratropium/Albuterol Sulfate 3 ML AMPUL.NEB INHALATION ×2 (03:18→07:48)
[2018-05-04] MEDS: levoFLOXacin 250 MG Tablet PO (06:41)
[2018-05-04] MEDS: Enoxaparin 30 MG/0.3 ML Syringe SC (06:41)
[2018-05-04] MEDS: 0.9% NaCl Peripheral Flush Adult/Peds IV (06:41)
[2018-05-04] MEDS: Furosemide 40 MG/4 ML Vial IV (06:41)
[2018-05-04 06:47] LABS: Anion Gap 7 (5-15); BUN 41 mg/dL (7-18); BUN/Creat Ratio 26.5 RATIO (10-20); Calcium,Total 8.8 mg/dL (8.5-10.1); Chloride 99 mmol/L (98-107); Creatinine, Serum 1.55 mg/dL (0.70-1.30); EST Glomerular Filtration Rate 48 mL/min (>60); Est Glom Filt Rate - Afr Amer 58 mL/min (>60); Estimated Creatinine Clearance 43.83 ml/min; Glucose 118 mg/dL (74-106); Potassium 3.4 mmol/L (3.5-5.1); Sodium Level 138 mmol/L (136-145)
--- NOTE | 2018-05-04 09:45 | PCM.DC ---
You will use the following diet at home:: Fluid restricted (specify 2000 mls, 1500 mls) - 1500 Allergies/Adverse Reactions: Allergies irbesartan [From Avapro] Adverse Reaction (Verified 05/01/18 21:43) Other zolpidem [From Ambien] Adverse Reaction (Verified 05/01/18 21:43) Other Medications to take at Discharge Aspirin [Aspirin, Baby] 81 mg PO DAILY@0800 01/28/18 Clopidogrel Bisulfate [Plavix] 75 mg PO DAILY 01/28/18 Metoprolol Succinate 100 mg PO DAILY 01/28/18 Ropinirole HCl [Requip] 1 mg PO DAILY 01/28/18 Rosuvastatin Calcium [Crestor] 40 mg PO DAILY 01/28/18 Spironolactone 25 mg PO BID 01/28/18 Tamsulosin HCl [Flomax] 0.4 mg PO BID 01/28/18 hydrALAZINE [Apresoline] 25 mg PO BID 01/28/18 Ferrous Sulfate 325 mg PO BIDCM #60 tab 01/30/18 Ipratropium/Albuterol Sulfate [Duoneb] 3 ml INHALATION Q4H.RT #120 ampul.neb 01/30/18 Finasteride [Proscar] 5 mg PO DAILY 04/08/18 Potassium Chloride [K-Dur] 10 meq PO DAILY 04/08/18 Amlodipine [Norvasc] 5 mg PO DAILY #30 tab 04/10/18 Bumetanide 2 mg PO BID #60 tab 04/10/18 Guaifenesin [Mucinex] 600 mg PO BID #14 tab 04/10/18 Doxycycline [Vibramycin] 100 mg PO BID #14 cap 05/04/18 Furosemide [Lasix] 40 mg PO BIDLX #120 tab 05/04/18 The following prescriptions were given: Doxycycline [Vibramycin] 100 mg PO BID #14 cap Furosemide [Lasix] 40 mg PO BIDLX #120 tab Primary Care Physician: Tania Berger NP-C [Primary Care Provider] - Please follow up with your Primary Care Physician in: [place] 5-7 DAYS Test Results: Test results from this visit will be discussed in further detail at your follow-up appointment, if applicable. Please Follow Up With: Alvaro Villa MD When: ON 05/04/18 Proposed Discharge Date: 05/04/18
--- NOTE | 2018-05-04 09:48 | DCINST_ITS ---
You will use the following diet at home:: Fluid restricted (specify 2000 mls, 1500 mls) - 1500 Allergies/Adverse Reactions: Allergies irbesartan [From Avapro] Adverse Reaction (Verified 05/01/18 21:43) Other zolpidem [From Ambien] Adverse Reaction (Verified 05/01/18 21:43) Other Medications to take at Discharge Aspirin [Aspirin, Baby] 81 mg PO DAILY@0800 01/28/18 Clopidogrel Bisulfate [Plavix] 75 mg PO DAILY 01/28/18 Metoprolol Succinate 100 mg PO DAILY 01/28/18 Ropinirole HCl [Requip] 1 mg PO DAILY 01/28/18 Rosuvastatin Calcium [Crestor] 40 mg PO DAILY 01/28/18 Spironolactone 25 mg PO BID 01/28/18 Tamsulosin HCl [Flomax] 0.4 mg PO BID 01/28/18 hydrALAZINE [Apresoline] 25 mg PO BID 01/28/18 Ferrous Sulfate 325 mg PO BIDCM #60 tab 01/30/18 Ipratropium/Albuterol Sulfate [Duoneb] 3 ml INHALATION Q4H.RT #120 ampul.neb Finasteride [Proscar] 5 mg PO DAILY 04/08/18 Potassium Chloride [K-Dur] 10 meq PO DAILY 04/08/18 Amlodipine [Norvasc] 5 mg PO DAILY #30 tab 04/10/18 Bumetanide 2 mg PO BID #60 tab 04/10/18 Guaifenesin [Mucinex] 600 mg PO BID #14 tab 04/10/18 Doxycycline [Vibramycin] 100 mg PO BID #14 cap 05/04/18 Furosemide [Lasix] 40 mg PO BIDLX #120 tab 05/04/18 The following prescriptions were given: Doxycycline [Vibramycin] 100 mg PO BID #14 cap Furosemide [Lasix] 40 mg PO BIDLX #120 tab Primary Care Physician: Tania Berger NP-C [Primary Care Provider] - Please follow up with your Primary Care Physician in: [place] 5-7 DAYS Test Results: Test results from this visit will be discussed in further detail at your follow- up appointment, if applicable. Please Follow Up With: Alvaro Villa MD When: ON 05/04/18 Proposed Discharge Date: 05/04/18
[2018-05-04] MEDS: Spironolactone 50 MG Tablet PO (09:50)
[2018-05-04] MEDS: Aspirin 81 MG TAB.CHEW PO (09:50)
[2018-05-04] MEDS: Ferrous Sulfate 325 MG Tablet PO (09:50)
[2018-05-04] MEDS: Tamsulosin HCl 0.4 MG Capsule PO (09:51)
[2018-05-04] MEDS: guaiFENesin 600 MG Tablet PO (09:51)
[2018-05-04] MEDS: hydrALAZINE 25 MG Tablet PO (09:51)
--- NOTE | 2018-05-04 09:51 | PCM.DC.SUM ---
Discharge Date and Diagnosis - Problem List Patient Problems: Active and Suspected Problems Pneumonia (Acute) Date of Admission: 05/01/18 Date of Discharge: 05/04/18 - Primary Discharge Diagnosis Active and Suspected Problems Pneumonia (Acute) - Secondary Discharge Diagnosis Chronic Problems HLD (hyperlipidemia) (Chronic) HTN (hypertension) (Chronic) PAD (peripheral artery disease) (Chronic) CAD (coronary artery disease) (Chronic) COPD (chronic obstructive pulmonary disease) (Chronic) Tobacco dependence (Chronic) CKD (chronic kidney disease) (Chronic) Leukocytosis (Chronic) Anemia (Chronic) BPH (benign prostatic hyperplasia) (Chronic) Hospital Course and Treatment Operations: None Summary of Care Provided: Patient is a 67-year-old gentleman who presented with exertional fatigue and progressive shortness of breath. Checks x-ray obtained on admission demonstrated bilateral pleural effusion with atelectasis. Patient was also noted to have elevated BNP and assessment of acute congestive heart failure made admitted to a monitored bed for further management 1. Acute diastolic congestive heart failure: Echo on 04/08/2018 demonstrated features consistent with diastolic dysfunction with an EF of 55% and mild pulmonary hypertension with RSVP of 42 mmHg patient has been admitted to monitored bed managed with fluid restriction, strict input and output daily weights as well as IV Lasix 2. Acute respiratory failure present on admission patient was placed on BiPAP which has since been weaned off. Plan is for patient to be assessed for home oxygen needs prior to discharge. Patient did not qualify he was therefore not discharged home with oxygen 3. Pneumonia: Suspected to be secondary to streptococci pneumonia. Patient placed on Levaquin and supplemental oxygen titrated to keep also is greater than 90 4. CAD with previous CABG patient is on Plavix as well as statin therapy 5. Hypertension-blood pressure controlled, home medications continued with dose adjustment as needed 6. Dyslipidemia-patient is on statin therapy, continued at home dose 7. COPD; nebs prn chest x-ray obtained on admission could not rule out an infectious etiology CT of the chest without contrast subsequently ordered 8. BPH, status post chronic Charles catheter 9. Chronic kidney disease stage III patient kidney function appears to be at baseline 10. DVT prophylaxis SC Lovenox Discharge Diet: 8 Cup Fluid Restriciton Discharge Activity: Return to Normal Activity, May not drive while taking narcotic pain medications. Home Medications: Medications to take at Discharge Aspirin [Aspirin, Baby] 81 mg PO DAILY@0800 01/28/18 Clopidogrel Bisulfate [Plavix] 75 mg PO DAILY 01/28/18 Metoprolol Succinate 100 mg PO DAILY 01/28/18 Ropinirole HCl [Requip] 1 mg PO DAILY 01/28/18 Rosuvastatin Calcium [Crestor] 40 mg PO DAILY 01/28/18 Spironolactone 25 mg PO BID 01/28/18 Tamsulosin HCl [Flomax] 0.4 mg PO BID 01/28/18 hydrALAZINE [Apresoline] 25 mg PO BID 01/28/18 Ferrous Sulfate 325 mg PO BIDCM #60 tab 01/30/18 Ipratropium/Albuterol Sulfate [Duoneb] 3 ml INHALATION Q4H.RT #120 ampul.neb 01/30/18 Finasteride [Proscar] 5 mg PO DAILY 04/08/18 Potassium Chloride [K-Dur] 10 meq PO DAILY 04/08/18 Amlodipine [Norvasc] 5 mg PO DAILY #30 tab 04/10/18 Bumetanide 2 mg PO BID #60 tab 04/10/18 Guaifenesin [Mucinex] 600 mg PO BID #14 tab 04/10/18 Doxycycline [Vibramycin] 100 mg PO BID #14 cap 05/04/18 Furosemide [Lasix] 40 mg PO BIDLX #120 tab 05/04/18 Following Prescrptions Were Given to Patient: Doxycycline [Vibramycin] 100 mg PO BID #14 cap Furosemide [Lasix] 40 mg PO BIDLX #120 tab Primary Care Physician: Tania Berger NP-C [Primary Care Provider] - Please follow up with your Primary Care Physician in: [place] 5-7 DAYS Please Follow Up With: Alvaro Villa MD When: ON 05/04/18 Disposition: Home Minutes spent on discharge:: 40 Patient Condition:: Stable Medical Necessity - Tobacco Use Smoking Status: Light Smoker (<10/day) Meaningful Use Info Meaningful Use Diagnoses (Choose all that apply): CHF - CHF HEATHER/ARB ordered at discharge?: No Reason HEATHER/ARB not ordered?: Worsening renal disease Documented LVEF (%): 65 Code Visit Inpatient E&M: 41072 Disch Hosp
[2018-05-04] MEDS: amLODIPine 5 MG Tablet PO (09:52)
[2018-05-04] MEDS: Finasteride 5 MG Tablet PO (09:52)
[2018-05-04] MEDS: Clopidogrel Bisulfate 75 MG Tablet PO (09:52)
[2018-05-04] MEDS: Metoprolol(XL)Succ 100 MG Tablet PO (09:53)
--- NOTE | 2018-05-04 15:57 | CM.ED ---
Social Work Note Palliative Care Screening Tool completed adn pt scored a 5 suggesting consideration of a palliative care referral. Placed call to pt as he has been discharged. Pt is agreeable to palliative care referral and begins asking about labs from today and fluid restrictions. States that he was placed on a fluid restriction this before discharging, and that he then went to Dr. Villa's office, had a catheter removed and was told to drink fluids, because if he does not urinate he would need to be back to Dr. Villa's office for a catheter placement by 1700. States that he was also not told his Creatinine results from today. Inform that SW can not make recommendations for his questions and that SW will notify RN CM to contact pt. Updated RN CM, Lakhwinder Kramer, who contacted RN JOHANNA on assigned unit, [facility], to try to coordinate communication with pt regarding his questions. Palliative Care referral faxed to [facility]. Haven López, MACHINE BENDER, CONTRACT COORDINATOR
--- NOTE | 2018-05-04 16:05 | CM.ED ---
Call placed to Dr. Villa's office. I explained patient's concern and discharge instructions for diet to Arlene ANDRADE. Arlene states that she will call the patient to clarify that he should follow diet recommendations from hospitalist.
--- NOTE | 2018-05-05 15:24 | CASEMGMT ---
RAYMOND SPENCER Discharge F/U Phone Call LACLuli: 14 Strata: 4 Discharge date: 05/04/18 Call date: 05/05/18 Call time: 1355 Duration: 4 minutes Admission dx: CHF, Pneumonia Pt states is definitely 'feeling better today than yesterday.' Pt states no questions regarding discharge instructions or medications at this time. Pt states that he is watching his weights 'very closely' and plans to keep all f/u appointments. Pt states catheter removed by Daisy yesterday and states that he is urinating but not his normal amount but states no concerns at this time. Pt states no suggestions for [facility] at this time and states that 'all those girls and José did a great job, they were super.' Pt voices no further questions/concerns/needs at this time. Pt thanks this RN JOHANNA for the call at this time. Chris ANDRADE CM
== END 2018-05-04 11:06 | disposition home or self-care (01) | DRG 291 ==
LOC: ED 23:01 → PCU 05-02 00:04
PROVIDERS: Admitting Provider Family Medicine; Emergency Provider Emergency Medicine; Family Provider Nurse Practitioner Family; PCP Nurse Practitioner Family; Visit Provider Internal Medicine
DX: I13.0 Hypertensive heart and chronic kidney disease with heart failure and stage 1 through stage 4 chronic kidney disease, or unspecified chronic kidney disease (principal); J15.4 Pneumonia due to other streptococci; I50.31 Acute diastolic (congestive) heart failure; J44.0 Chronic obstructive pulmonary disease with (acute) lower respiratory infection; E78.5 Hyperlipidemia, unspecified; I73.9 Peripheral vascular disease, unspecified; N40.0 Benign prostatic hyperplasia without lower urinary tract symptoms; Z95.1 Presence of aortocoronary bypass graft; I25.10 Atherosclerotic heart disease of native coronary artery without angina pectoris; D64.9 Anemia, unspecified; I27.20 Pulmonary hypertension, unspecified; N18.3 Chronic kidney disease, stage 3 (moderate); F17.200 Nicotine dependence, unspecified, uncomplicated
CPT/HCPCS: 36415; 71045; 71250; 80048; 80053; 80061; 82040; 83735; 83880; 84484; 85025; 85027; 87040; 93005; 94002; 94003; 94640; 97802; 99285; 99406; J7050; A4216; J1940

== ENCOUNTER 2018-05-10 09:28 | Inpatient (IN) | payer MEDICARE, SELFPAY ==
[2018-05-10] VITALS (42 sets, daily range): BP systolic 132–174; BP diastolic 36–91; PULSE 65–112; RESP 12–36; TEMP 36.1–37.1; O2SAT 93–100; BMI 29.7; BMI 30.3; BMI 30.4
--- NOTE | 2018-05-10 09:42 | EKG12_ITS ---
Test Reason : Blood Pressure : / mmHG Vent. Rate : 097 BPM Atrial Rate : 097 BPM P-R Int : 194 ms QRS Dur : 096 ms QT Int : 354 ms P-R-T Axes : 010 086 027 degrees QTc Int : 449 ms Normal sinus rhythm Consider voltage criteria for LVH Poor R wave progression Abnormal ECG Confirmed by SANTANA MONTENEGRO, KEISHA ([id number]), science editor SHIRA HURD ([id number]) on 05/12/2018 1:40:53 PM Referred By: Nickolas Mccollum Confirmed By:KEISHA DILLON MD
--- NOTE | 2018-05-10 09:51 | RAD_ITS ---
STUDY: X-RAY CHEST REASON FOR EXAM: Male, 67 years old. Respiratory distress, recent pneumonia TECHNIQUE: Single AP portable view of the chest. COMPARISON: 05/01/2018 FINDINGS: EKG leads overlie the chest. Lungs are expanded, persistent interstitial edema noted in the lung bases with blunting of both costophrenic angles unchanged as well. Little significant interval change noted since the previous study. Sternal cerclage wires and vascular clips are present from a prior sternotomy and coronary artery bypass graft procedure (CABG). Normal mediastinum and justyn. Normal visualized pulmonary arteries. There is atherosclerotic calcification of the aortic arch with tortuosity. There are diffuse degenerative changes of the visualized thoracic spine. Normal visualized ribs, clavicles, and shoulders. There is no demonstrated abnormality of the visualized soft tissue structures of the upper abdomen. RAD/Chest 1 View (Portable) IMPRESSION: Interstitial edema with small bilateral pleural effusions. No interval change since the previous study. Electronically Signed: Pradeep Marquez MD at 10:08 EDT , Service support ,
--- NOTE | 2018-05-10 09:51 | ED.VISSUMM ---
- ER Visit Summary Date of Service: 05/10/18 Chief Complaint: Respiratory distress History of Present Illness: The patient is a 67 M who was recently admitted to the hospital for congestive heart failure and pneumonia who presents because of abrupt onset of shortness of breath. He denies fever, chills night sweats. He denies chest pain, neck pain, jaw pain or upper extremity discomfort. He has slept in a chair for the past 8 years. He has history of chronic pedal edema. History is limited to severity of illness Physical Examination: Patient is in respiratory distress with paradoxical breathing. He is hypertensive, tachycardic and tachypneic. He is presently on BiPAP with a saturation of 96%. Head is atraumatic normocephalic. Pupils equal round reactive. Sclerae anicteric. Conjunctive is pink. Trach is midline. There is no stridor. There is no dysphonia or dysphasia. Lungs reveal rales bilaterally. Heart is regular without murmur, gallop or rub. Abdomen distended tympanitic and nontender. Lower extremity exam is remarkable 2+ pitting edema. Distal pulses are palpable. Test Results: EKG reveals a sinus rhythm rate of 97 with LVH and repolarization. CT interval is normal. QRS duration slightly prolonged. Portable chest x-ray interpreted by me as significant congestion consistent with congestive heart failure. White count is 27.5 thousand with 69 segs no bands 19 lymphs. H&H 11.1 and 37.3. Electrolyte panels marked for slight elevation in potassium at 6.0. CO2 BUN is 64 creatinine 2.4 and glucose 195. Troponin is normal. Lactate is normal. ABG reveals a pH of 7.36 PCO2 of 42 which is elevated for a patient breathing 34 times a minute and a PO2 of 81 on BiPAP. Emergency Department Course and Treatment: With abrupt onset of shortness of breath need to rule out cardiac ischemia with CHF, worsening COPD, pneumothorax, pulmonary embolus. To evaluate patient CBC, CMP, lactate, troponin and ABG was obtained since he is on BiPAP with distress. Concern for CO2 retention. In light of bilateral rales with history of CHF and bilateral pedal edema concerned this represents exacerbation of heart failure. Since her is slight wheezing which may represent CHF versus COPD he did receive a DuoNeb treatment. Treatment may change or very pending portable chest x-ray results. Treatment Plan: Since patient's chest x-ray reveals heart failure he was started on a nitro drip for preload reduction. Since clinically he is fluid overloaded he received 80 mg of Lasix IV push. White count may be a stress response since there is no shift. Disposition: Patient to be admitted to ICU since he still has paradoxical breathing even though he is improved. Impression: 1. Respiratory failure with hypoxia and hypercapnia. 2. Acute exacerbation of CHF/pulmonary edema 3. Leukocytosis unknown etiology 4. Anemia of chronic illness 5. History of hypertension 6. History of chronic renal failure This note was generated with [employer] dictation software. It may contain incorrect words, spelling, and punctuation that were not noted in review of the chart prior to signing EKG reveals a sinus rhythm rate of 97 with evidence of LVH with repolarization changes. CT interval is normal. QRS interval slightly prolongated. ED Disposition - Plan for ED Patient: Chief Complaint: Shortness of Breath Referrals: Tania Berger NP-C [Primary Care Provider] -
--- NOTE | 2018-05-10 09:54 | ED.DCSUM_ITS ---
- ER Visit Summary Date of Service: 05/10/18 Chief Complaint: Respiratory distress History of Present Illness: The patient is a 67 M who was recently admitted to the hospital for congestive heart failure and pneumonia who presents because of abrupt onset of shortness of breath. He denies fever, chills night sweats. He denies chest pain, neck pain, jaw pain or upper extremity discomfort. He has slept in a chair for the past 8 years. He has history of chronic pedal edema. History is limited to severity of illness Physical Examination: Patient is in respiratory distress with paradoxical breathing. He is hypertensive, tachycardic and tachypneic. He is presently on BiPAP with a saturation of 96%. Head is atraumatic normocephalic. Pupils equal round reactive. Sclerae anicteric. Conjunctive is pink. Trach is midline. There is no stridor. There is no dysphonia or dysphasia. Lungs reveal rales bilaterally. Heart is regular without murmur, gallop or rub. Abdomen distended tympanitic and nontender. Lower extremity exam is remarkable 2+ pitting edema. Distal pulses are palpable. Test Results: EKG reveals a sinus rhythm rate of 97 with LVH and repolarization. TX interval is normal. QRS duration slightly prolonged. Portable chest x-ray interpreted by me as significant congestion consistent with congestive heart failure. White count is 27.5 thousand with 69 segs no bands 19 lymphs. H&H 11.1 and 37.3. Electrolyte panels marked for slight elevation in potassium at 6.0. CO2 BUN is 64 creatinine 2.4 and glucose 195. Troponin is normal. Lactate is normal. ABG reveals a pH of 7.36 PCO2 of 42 which is elevated for a patient breathing 34 times a minute and a PO2 of 81 on BiPAP. Emergency Department Course and Treatment: With abrupt onset of shortness of breath need to rule out cardiac ischemia with CHF, worsening COPD, pneumothorax , pulmonary embolus. To evaluate patient CBC, CMP, lactate, troponin and ABG was obtained since he is on BiPAP with distress. Concern for CO2 retention. In light of bilateral rales with history of CHF and bilateral pedal edema concerned this represents exacerbation of heart failure. Since her is slight wheezing which may represent CHF versus COPD he did receive a DuoNeb treatment. Treatment may change or very pending portable chest x-ray results. Treatment Plan: Since patient's chest x-ray reveals heart failure he was started on a nitro drip for preload reduction. Since clinically he is fluid overloaded he received 80 mg of Lasix IV push. White count may be a stress response since there is no shift. Disposition: Patient to be admitted to ICU since he still has paradoxical breathing even though he is improved. Impression: 1. Respiratory failure with hypoxia and hypercapnia. 2. Acute exacerbation of CHF/pulmonary edema 3. Leukocytosis unknown etiology 4. Anemia of chronic illness 5. History of hypertension 6. History of chronic renal failure This note was generated with [employer] dictation software. It may contain incorrect words, spelling, and punctuation that were not noted in review of the chart prior to signing EKG reveals a sinus rhythm rate of 97 with evidence of LVH with repolarization changes. [place] interval is normal. QRS interval slightly prolongated. ED Disposition - Plan for ED Patient: Chief Complaint: Shortness of Breath Referrals: Tania Berger NP-C [Primary Care Provider] -
[2018-05-10 09:55] LABS: Bedside Glucose 200 mg/dL (70-110)
[2018-05-10 09:57] LABS: Absolute Lymphocyte Count 5.15 X10^3/ul (0.83-4.51); Absolute Neutrophil Count 18.9 X10^3/uL (2.0-7.7); Basophil# 0.04 X10^3/uL; Basophil% 0.1 % (0-1); Eosinophil# 0.51 X10^3/uL; Eosinophils% 1.9 % (0-5); Hematocrit 37.3 % (40-54); Hemoglobin 11.1 g/dl (13.0-16.5); Lymphocyte # 5.15 X10^3/ul (4.0); Lymphocyte % 18.7 % (19-41); Mean Corp Hgb Conc 29.8 g/gl (32-36); Mean Corpuscular Hgb 29.4 pg (27.0-32.0); Mean Corpuscular Volume 98.9 fL (80-94); Mean Platelet Vol. 9.6 fl (6.2-12.0); Monocyte# 2.67 X10^3/uL; Monocyte% 9.7 % (0-10); Neutrophil # 18.91 X10^3/uL (2.7-7.7); Neutrophil % 68.8 % (47-70); Platelet Count 345 K/mm3 (150-450); RBC Distribution Width CV 18.5 % (11.6-14.6); RBC Distribution Width SD 66.2 fl (35.1-43.9); Red Blood Count 3.77 M/mm3 (4.6-6.2); White Blood Count 27.5 K/mm3 (4.4-11.0)
[2018-05-10 09:58] LABS: Differential Indicated SCAN CRITERIA MET; POSITIVE COUNT NO; POSITIVE DIFFERENTIAL YES; POSITIVE MORPHOLOGY YES
[2018-05-10 10:05] LABS: Lactic Acid 1.4 mmol/L (0.4-2.0)
[2018-05-10] MEDS: Ipratropium/Albuterol Sulfate 3 ML AMPUL.NEB INHALATION ×2 (10:05→17:25)
[2018-05-10] MEDS: Furosemide 100 MG/10 ML Vial 80 MG IV (10:07)
[2018-05-10 10:12] LABS: ALB/GLOB Ratio 0.9 RATIO (0.9-2.4); AST(SGOT) 25 U/L (15-37); Alanine Aminotransfer ALT/SGPT 28 U/L (16-61); Albumin, Serum 3.6 g/dL (3.2-5.0); Alkaline Phosphatase 82 U/L (45-117); Anion Gap 8 (5-15); BUN 64 mg/dL (7-18); BUN/Creat Ratio 26.2 RATIO (10-20); Calcium,Total 8.8 mg/dL (8.5-10.1); Chloride 99 mmol/L (98-107); Creatinine, Serum 2.44 mg/dL (0.70-1.30); EST Glomerular Filtration Rate 28 mL/min (>60); Est Glom Filt Rate - Afr Amer 34 mL/min (>60); Estimated Creatinine Clearance 28.81 ml/min; Globulin 4.1 g/dL (2.2-4.2); Glucose 195 mg/dL (74-106); Protein, Total 7.7 g/dL (6.4-8.2); Sodium Level 134 mmol/L (136-145)
--- NOTE | 2018-05-10 11:12 | PCM.HP.STD ---
Problem List (1) Acute respiratory failure with hypoxia Status: Acute (2) HLD (hyperlipidemia) Status: Chronic Qualifiers: Hyperlipidemia type: unspecified Qualified Code(s): E78.5 - Hyperlipidemia, unspecified (3) HTN (hypertension) Status: Chronic Qualifiers: Hypertension type: essential hypertension Qualified Code(s): I10 - Essential (primary) hypertension (4) CAD (coronary artery disease) Status: Chronic Qualifiers: Coronary Disease-Associated Artery/Lesion type: unspecified vessel or lesion type [place] vs. transplanted heart: unspecified whether [place] or transplanted heart Associated angina: angina presence unspecified Qualified Code(s): I25.10 - Atherosclerotic heart disease of [place] coronary artery without angina pectoris (5) COPD (chronic obstructive pulmonary disease) Status: Chronic Qualifiers: COPD type: unspecified COPD Qualified Code(s): J44.9 - Chronic obstructive pulmonary disease, unspecified (6) BPH (benign prostatic hyperplasia) Status: Chronic Qualifiers: Lower urinary tract symptom presence: unspecified whether lower urinary tract symptoms present Qualified Code(s): N40.0 - Benign prostatic hyperplasia without lower urinary tract symptoms History of Present Illness Date of Admission: 05/10/18 Chief Complaint: Shortness of breath - ongoing for days The patient is a 67 year old M with past medical history of chronic diastolic CHF, pulmonary hypertension, CAD status post CABG, BPH status post chronic Charles catheter with recent removal of Charles catheter, less than a week ago. He comes in with complaints of shortness of breath ongoing for almost a week. This is associated with orthopnea and PND as well as bilateral lower extremity edema. He states that his Charles catheter was removed by Dr. Villa less than a week and he is backing up with fluid. He thinks his shortness shortness of breath has to do with the Charles catheter that has been removed. Denies chest pain or dizziness or palpitations or fever or chills. He denied eating anything that has high sodium. His states that in the last 3 days of note is that he has been gaining weight. He took an extra Lasix but he still feels short of breath and was orthopneic and had PND. He called the EMS, and the EMS found him to be saturating 85% on room air. He was put on CPAP and brought into the emergency room. In the ED, his temperature 98.6 F, heart rate of 102, blood pressure 174/70, respiratory rate was 18, his blood gas showed pH of 7.43, PCO2 of 42, PO2 of 99%(done on BiPAP), SPO2 is 98% on 50% FiO2 with BiPAP. CBC D show WBC count of 27.5, hemoglobin is 11.1, platelets was 349, sodium 134, potassium 6.0, bicarb 7, chloride 99, BUN 64, creatinine 2.44. He was discharged in creatinine 1.55, Chest x-ray showed interstitial edema with bilateral pleural effusions, patient was started on nitro drip and given 80 mg of IV Lasix Past Medical History Past Medical History (Chronic Problems): Chronic Problems HLD (hyperlipidemia) (Chronic) HTN (hypertension) (Chronic) PAD (peripheral artery disease) (Chronic) CAD (coronary artery disease) (Chronic) COPD (chronic obstructive pulmonary disease) (Chronic) Tobacco dependence (Chronic) CKD (chronic kidney disease) (Chronic) Leukocytosis (Chronic) Anemia (Chronic) BPH (benign prostatic hyperplasia) (Chronic) Allergies irbesartan [From Avapro] Adverse Reaction (Verified 05/10/18 09:40) Other zolpidem [From Ambien] Adverse Reaction (Verified 05/10/18 09:40) Other Home Medications: Ambulatory Orders Medication Instructions Recorded Aspirin [Aspirin, Baby] 81 mg PO DAILY@0800 01/28/18 Clopidogrel Bisulfate [Plavix] 75 mg PO DAILY 01/28/18 Metoprolol Succinate 100 mg PO DAILY 01/28/18 Ropinirole HCl [Requip] 1 mg PO DAILY 01/28/18 Rosuvastatin Calcium [Crestor] 40 mg PO DAILY 01/28/18 Spironolactone 25 mg PO BID 01/28/18 Tamsulosin HCl [Flomax] 0.4 mg PO BID 01/28/18 hydrALAZINE [Apresoline] 25 mg PO BID 01/28/18 Ferrous Sulfate 325 mg PO BIDCM #60 tab 01/30/18 Ipratropium/Albuterol Sulfate 3 ml INHALATION Q4H.RT #120 01/30/18 [Duoneb] ampul.neb Finasteride [Proscar] 5 mg PO DAILY 04/08/18 Potassium Chloride [K-Dur] 10 meq PO DAILY 04/08/18 Amlodipine [Norvasc] 5 mg PO DAILY #30 tab 04/10/18 Bumetanide 2 mg PO BID #60 tab 04/10/18 Guaifenesin [Mucinex] 600 mg PO BID #14 tab 04/10/18 Doxycycline [Vibramycin] 100 mg PO BID #14 cap 05/04/18 Furosemide [Lasix] 40 mg PO BIDLX #120 tab 05/04/18 Surgical History: coronary bypass surgery, tonsillectomy Smoking Status: Light Smoker (<10/day) - *Family History Maternal History Items: No pertinent history Paternal History Items: No pertinent history Review of Systems Constitutional: Denies: Anorexia, Chills, Fever, Malaise, Weakness, Weight Change Eyes: Denies: Blurred vision, Cataracts, Conjunctivae Inflammation, Pain, Redness, Vision Change HEENT: Denies: Difficulty Hearing, Difficulty Swallowing, Head Aches, Hearing Changes, Sinus Congestion, Sinus Drainage, Sore Throat Cardiovascular: Denies: Chest Pain, Claudication, Orthopnea, Palpitations, Paroxysmal Noc. Dyspnea Respiratory: Reports: Shortness of Breath, Shortness of breath at rest, Shortness of breath upon exertion. Denies: Cough, Hemoptysis, Sputum production Gastrointestinal: Denies: Abdominal Pain, Constipation, Hematemesis, Hematochezia, Nausea, Vomiting Genitourinary: Denies: Dysuria, Frequency, Incontinence Musculoskeletal: Denies: Joint Pain, Joint stiffness, Joint swelling, Joint Tenderness Skin: Denies: Pruritis, Rash, Wounds Neurological: Denies: Difficulty swallowing, Focal weakness, Numbness, Tingling Psychiatric: Denies: Anxiety, Depression, Homicidal Ideations, Suicidal Ideations Hematologic/ Lymphatic: Denies: Easy Bruising, Easy Bleeding VTE Information - Inpt Only VTE Present on Admission: No VTE Pharm Prophylaxis ordered?: Yes - Physical Exam General: Alert, Oriented x3, Cooperative, - - Moderate respiratory distress, on BiPAP mask HEENT: Atraumatic, PERRLA, EOMI, Normocephalic Oral: Dry Mucosa Neck: Supple Lungs: Clear to auscultation, Normal air movement Cardiovascular: Regular rate, Regular Rhythm, Normal S1, Normal S2, No murmurs Abdomen: Bowel Sounds Present, Soft, Non Tender, Non-Distended, No Hepato-splenomegaly Extremities: Edema - +1 bilateral pedal edema Skin: No rashes Musculoskeletal: No Tenderness to Palpation of Joints or Extremities Lymphatic: No Cervical, Supraclavicular, or Inguinal Adenopathy Neurological: Cranial nerves II-XII grossly intact, Neuro grossly intact Psych/Mental Status: Normal Affect, Appropriate Vital Signs Temp Pulse Resp BP Pulse Ox 98.6 F 74 36 H 147/56 H 95 05/10/18 09:29 05/10/18 10:21 05/10/18 10:21 05/10/18 10:21 05/10/18 10:21 Oxygen Delivery Method Bi-pap Weight: 88.904 kg Body Mass Index (BMI) 29.7 Finger Stick Blood Glucose 200 Laboratory Tests Past 24 Hrs 05/10/18 05/10/18 05/10/18 09:30 09:30 09:30 WBC 27.5 H RBC 3.77 L Hgb 11.1 L Hct 37.3 L MCV 98.9 H MCH 29.4 MCHC 29.8 L RDW 18.5 H RDW Differential 66.2 H Plt Count 345 MPV 9.6 Immature Gran % (Auto) 0.800 Neut % (Auto) 68.8 Lymph % (Auto) 18.7 L [place] % (Auto) 9.7 Eos % (Auto) 1.9 Baso % (Auto) 0.1 Absolute Neuts (auto) 18.9 H Absolute Lymphs (auto) 5.15 H Total Counted Pending Sodium 134 L Potassium 6.0 H* Chloride 99 Carbon Dioxide 27.0 Anion Gap 8 BUN 64 H Creatinine 2.44 H Estim Creat Clear Calc 28.81 Est GFR (MDRD) Af Amer 34 L Est GFR (MDRD) Non-Af 28 L BUN/Creatinine Ratio 26.2 H Glucose 195 H Lactic Acid 1.4 Calcium 8.8 Total Bilirubin 0.70 AST 25 ALT 28 Alkaline Phosphatase 82 Troponin I < 0.015 Total Protein 7.7 Albumin 3.6 Globulin 4.1 Albumin/Globulin Ratio 0.9 POC Glucose 05/10/18 09:49 POC Glucose 200 H Assessment/Plan All Active Problems Pneumonia (Acute) UTI (urinary tract infection) (Resolved) Sepsis (Resolved) Acute respiratory failure with hypoxia (Acute) Diastolic CHF (Acute) Respiratory failure with hypoxia (Acute) 67 year old M with past medical history of chronic diastolic CHF, pulmonary hypertension, CAD status post CABG, BPH status post chronic Charles catheter with recent removal of Charles catheter, less than a week ago seen with shortness of breath, orthopnea and PND 1. Acute on chronic hypoxic respiratory failure secondary to acute on chronic diastolic CHF, on BiPAP, will continue same, repeat ABG, wean off for SPO2 more than 94%. 2. Acute on chronic diastolic CHF, unclear etiology for this exacerbation, patient was taking all his medications, given 80 mg IV Lasix in the ED, will repeat BMP, and continue from there, strict I's and O's, daily weights, low-salt diet 3. DAI on CKD stage III, last discharge was creatinine 1.55, currently admitted with creatinine of 2.44, BUN 64, likely cardiorenal vs post-renal, would repeat BMP, nephrology consult 4. Hyperkalemia secondary to likely DAI, admitting potassium was 6.0, repeat BMP and manage subsequently 5. Leukocytosis, likely reactive, no source of infection, trend CBC D 6. CAD status post CABG, on Plavix, statin 7. Hypertension, controlled, continue home medication 8. Hyperlipidemia, on statin 9. BPH status post Charles catheter, patient will need urology to see him prior to discharge 10. DVT prophylaxis-heparin subcu 11. GI prophylaxis with famotidine 12. Code status: Full Discussed CODE STATUS with the patient's family in the room- and 2 daughters. Discussed the different types of CODE STATUS and explained the differences in detail. Patient states that in the event that something happens he does not want to be on machines but if that will mean that nothing else can be done. I explained that it typically does not work like that because if he should have an arrest, we need to as quickly. Family decided to keep him full code for now Time spent at the bedside was 18 minutes Code Visit Inpatient E&M: 16646 Init Hosp L3
[2018-05-10 13:11] LABS: Anion Gap 9 (5-15); BUN 62 mg/dL (7-18); BUN/Creat Ratio 27.4 RATIO (10-20); Calcium,Total 8.5 mg/dL (8.5-10.1); Chloride 102 mmol/L (98-107); Creatinine, Serum 2.26 mg/dL (0.70-1.30); EST Glomerular Filtration Rate 31 mL/min (>60); Est Glom Filt Rate - Afr Amer 38 mL/min (>60); Estimated Creatinine Clearance 30.06 ml/min; Glucose 136 mg/dL (74-106); Potassium 5.1 mmol/L (3.5-5.1); Sodium Level 136 mmol/L (136-145)
--- NOTE | 2018-05-10 13:27 | CPS ---
increased from 2 to 3 lpm, low Pa02 on ABG
--- NOTE | 2018-05-10 14:36 | CON.PCM_ITS ---
Problem List (1) UTI (urinary tract infection) Status: Resolved Qualifiers: Urinary tract infection type: catheter-associated UTI Indwelling urinary catheter type: indwelling urethral catheter Encounter type: subsequent encounter Qualified Code(s): T83.511D - Infection and inflammatory reaction due to indwelling urethral catheter, subsequent encounter; N39.0 - Urinary tract infection, site not specified (2) Acute respiratory failure with hypoxia Status: Acute (3) Diastolic CHF Status: Acute Qualifiers: (4) HLD (hyperlipidemia) Status: Chronic Qualifiers: Hyperlipidemia type: unspecified Qualified Code(s): E78.5 - Hyperlipidemia , unspecified (5) HTN (hypertension) Status: Chronic Qualifiers: Hypertension type: essential hypertension Qualified Code(s): I10 - Essential (primary) hypertension (6) PAD (peripheral artery disease) Status: Chronic (7) CAD (coronary artery disease) Status: Chronic Qualifiers: Coronary Disease-Associated Artery/Lesion type: unspecified vessel or lesion type [place] vs. transplanted heart: unspecified whether [place] or transplanted heart Associated angina: angina presence unspecified Qualified Code(s): I25.10 - Atherosclerotic heart disease of [place] coronary artery without angina pectoris (8) COPD (chronic obstructive pulmonary disease) Status: Chronic Qualifiers: COPD type: unspecified COPD Qualified Code(s): J44.9 - Chronic obstructive pulmonary disease, unspecified (9) Tobacco dependence Status: Chronic (10) CKD (chronic kidney disease) Status: Chronic Qualifiers: Chronic kidney disease stage: stage 3 (moderate) Qualified Code(s): N18.3 - Chronic kidney disease, stage 3 (moderate) (11) Anemia Status: Chronic (12) BPH (benign prostatic hyperplasia) Status: Chronic Qualifiers: Lower urinary tract symptom presence: unspecified whether lower urinary tract symptoms present Qualified Code(s): N40.0 - Benign prostatic hyperplasia without lower urinary tract symptoms Reason for Consult Date of Consultation: 05/10/18 Reason for Consultation: Hypoxic respiratory failure History of Present Illness: The patient is a 67 year old M, with past medical history listed below, who presented to [facility] on 05/10/2018 secondary to increasing shortness of breath. Patient reports that he was discharged from the hospital on and over the weekend developed progressive orthopnea, PND, lower extremity edema and dyspnea on exertion. Patient states he was discharged without supplemental oxygen. Patient had also had his Charles catheter removed prior to discharge and had been reporting some difficulty with urination. Patient denied any constitutional symptoms such as fever, chills, nausea or vomiting. On EMS presentation, patient was noted to be 85% on room air. Patient was placed on CPAP therapy and on arrival to the ED was placed on BiPAP 50% FiO2. Patient was given Lasix, nitro drip and transferred to the intensive care unit. After arrival to the intensive care unit, patient had reported subjective improvement in condition. Patient continues on nitroglycerin drip, but has been able to be taken off of BiPAP therapy. Patient is reporting dysuria following Charles placement. Patient has been seen in the past by myself and was told to follow-up 2 weeks after discharge. Unfortunately, patient has not been out of the hospital for 2 weeks since that time to evaluate as an outpatient. Patient has not had any pulmonary function test completed, but has had a CT scan showing emphysematous changes were noted. Patient does continue to smoke intermittently. Patient states she has never been discharged on supplemental oxygen, but was told to use doxycycline for 14 days secondary to pneumonia just prior to last discharge. Patient states he has been compliant with medication therapy. Patient has noted some increased lower extremity edema and erythema, but denies any pain or heat sensation. Patient has endorsed a nonproductive cough. Past Medical History Past Medical History (Chronic Problems): Chronic Problems HLD (hyperlipidemia) (Chronic) HTN (hypertension) (Chronic) PAD (peripheral artery disease) (Chronic) CAD (coronary artery disease) (Chronic) COPD (chronic obstructive pulmonary disease) (Chronic) Tobacco dependence (Chronic) CKD (chronic kidney disease) (Chronic) Leukocytosis (Chronic) Anemia (Chronic) BPH (benign prostatic hyperplasia) (Chronic) Allergies irbesartan [From Avapro] Adverse Reaction (Verified 05/10/18 09:40) Other zolpidem [From Ambien] Adverse Reaction (Verified 05/10/18 09:40) Other Home Medications: Ambulatory Orders Medication Instructions Recorded Aspirin [Aspirin, Baby] 81 mg PO DAILY@0800 01/28/18 Clopidogrel Bisulfate [Plavix] 75 mg PO DAILY 01/28/18 Metoprolol Succinate 100 mg PO DAILY 01/28/18 Ropinirole HCl [Requip] 1 mg PO QHS 01/28/18 Rosuvastatin Calcium [Crestor] 40 mg PO QHS 01/28/18 Spironolactone 50 mg PO BID 01/28/18 Tamsulosin HCl [Flomax] 0.4 mg PO BID 01/28/18 hydrALAZINE [Apresoline] 50 mg PO TID 01/28/18 Finasteride [Proscar] 5 mg PO DAILY 04/08/18 Bumetanide 2 mg PO BID #60 tab 04/10/18 Albuterol Aerosols [Ventolin 2.5 mg INHALATION Q4H PRN 05/10/18 Aerosols] Amlodipine [Norvasc] 5 mg PO DAILY 05/10/18 Doxycycline [Vibramycin] 100 mg PO BID 05/10/18 Ferrous Sulfate 325 mg PO BIDCM 05/10/18 Guaifenesin [Mucinex] 600 mg PO BID 05/10/18 Potassium Chloride [K-Dur] 40 meq PO BID 05/10/18 Sertraline HCl [Zoloft] 50 mg PO DAILY 05/10/18 Surgical History: coronary bypass surgery, tonsillectomy Smoking Status: Light Smoker (<10/day) - *Family History Maternal History Items: No pertinent history Paternal History Items: No pertinent history Review of Systems Comment: See HPI, otherwise negative ?10 systems. Objective: Chest x-ray was personally reviewed and shows bilateral alveolar infiltrates. - Physical Exam General: Alert, Oriented x3, Cooperative, No apparent distress, - - Obese. Localizes appropriately. Appears older than stated age. HEENT: Atraumatic, PERRLA, EOMI, Normocephalic, - - Slight scleral injection without icterus Oral: Moist Mucosa, No Gingival or Mucosal Lesions/ Ulcerations Neck: Supple, No JVD, No Nodes, Trachea Midline Lungs: No rhonchi, No wheeze, Diminished, Rales, - - Symmetric expansion. No dullness to percussion. Cardiovascular: Normal S1, Normal S2, No murmurs, Irregular Rate, No rub noted, No Gallop Abdomen: Bowel Sounds Present, Soft, Non Tender, Non-Distended, Obese Extremities: No clubbing, No cyanosis, Edema Skin: - - Some erythema noted of lower extremities. Does improve with elevation. Musculoskeletal: No Tenderness to Palpation of Joints or Extremities Lymphatic: No Cervical, Supraclavicular, or Inguinal Adenopathy Neurological: Cranial nerves II-XII grossly intact, Neuro grossly intact, Sensory exam intact to light touch and pain Psych/Mental Status: Normal Affect, Flat Affect Vital Signs Temp Pulse Resp BP Pulse Ox 37.0 C 69 18 150/62 H 97 05/10/18 09:29 05/10/18 11:17 05/10/18 13:29 05/10/18 11:17 05/10/18 13:29 Oxygen Flow Rate (L/min) 2 Oxygen Delivery Method Nasal Cannula Weight: 87.9 kg Body Mass Index (BMI) 30.3 Laboratory Tests 05/10/18 05/10/18 05/10/18 09:30 09:30 09:30 WBC 27.5 H RBC 3.77 L Hgb 11.1 L Hct 37.3 L MCV 98.9 H MCH 29.4 MCHC 29.8 L RDW 18.5 H RDW Differential 66.2 H Plt Count 345 MPV 9.6 Immature Gran % (Auto) 0.800 Neut % (Auto) 68.8 Lymph % (Auto) 18.7 L [place] % (Auto) 9.7 Eos % (Auto) 1.9 Baso % (Auto) 0.1 Absolute Neuts (auto) 18.9 H Absolute Lymphs (auto) 5.15 H Total Counted Not Reportable Differential Comment COMMENT Diff Path Review February Sodium 134 L Potassium 6.0 H* Chloride 99 Carbon Dioxide 27.0 Anion Gap 8 BUN 64 H Creatinine 2.44 H Estim Creat Clear Calc 28.81 Est GFR (MDRD) Af Amer 34 L Est GFR (MDRD) Non-Af 28 L BUN/Creatinine Ratio 26.2 H Glucose 195 H Lactic Acid 1.4 Calcium 8.8 Total Bilirubin 0.70 AST 25 ALT 28 Alkaline Phosphatase 82 Troponin I < 0.015 Total Protein 7.7 Albumin 3.6 Globulin 4.1 Albumin/Globulin Ratio 0.9 POC Glucose 05/10/18 05/10/18 05/10/18 09:49 12:55 12:55 WBC RBC Hgb Hct MCV MCH MCHC RDW RDW Differential Plt Count MPV Immature Gran % (Auto) Neut % (Auto) Lymph % (Auto) [place] % (Auto) Eos % (Auto) Baso % (Auto) Absolute Neuts (auto) Absolute Lymphs (auto) Total Counted Differential Comment Diff Path Review Sodium 136 Potassium 5.1 Chloride 102 Carbon Dioxide 25.0 Anion Gap 9 BUN 62 H Creatinine 2.26 H Estim Creat Clear Calc 30.06 Est GFR (MDRD) Af Amer 38 L Est GFR (MDRD) Non-Af 31 L BUN/Creatinine Ratio 27.4 H Glucose 136 H Lactic Acid Calcium 8.5 Total Bilirubin AST ALT Alkaline Phosphatase Troponin I < 0.015 Total Protein Albumin Globulin Albumin/Globulin Ratio POC Glucose 200 H Clinical Impression(s) from Imaging Studies Chest X-Ray 05/10/18 09:51 IMPRESSION: Interstitial edema with small bilateral pleural effusions. No interval change since the previous study. Electronically Signed: Pradeep Marquez MD at 10:08 EDT , Service support , Assessment/Plan RECOMMENDATIONS 1. Wean oxygen supplementation to keep saturations later than 88% 2. Encourage incentive spirometer 3. Increase activity as tolerated, PT/OT 4. Continue aerosols 5. Okay to use BiPAP overnight while sleeping empirically 6. Obtain records from Dr. Quesada's office in [facility] 7. Ambulatory pulse ox prior to discharge IMPRESSIONS 1. Sepsis secondary to suspected complicated UTI Patient with significant leukocytosis on presentation. Patient is not reporting any fever at this time. Patient does have a nonproductive cough noted. Clinical suspicion for complicated UTI. Cultures are currently pending. Patient recently on doxycycline. Will obtain a UA. If consistent with infection, may need to be started on empiric antibiotics. 2. Acute renal failure Significant worsening compared to previous. Renal has been consulted. Patient does have atrophic left kidney and CT the abdomen/pelvis showed severe renal stenosis. Some concern for postobstructive uropathy secondary to BPH. Urology is consulted. No indication for renal replacement therapy at this time. 3. Acute on chronic diastolic CHF Patient with significant hypoxia on presentation that was originally requiring BiPAP therapy. Patient did respond well to Lasix therapy on presentation. Unclear if significant worsening since discharge is secondary to increased salt load versus underlying rhythm disturbance at home. Patient is currently on nasal cannula oxygen. Would recommend using BiPAP therapy overnight as patient is at high risk for obstructive sleep apnea. Previous echocardiogram did show diastolic dysfunction. 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 Yu [place], [place]. 4. Presumed COPD Records from Dr. Quesada are not available at this time. Patient has not had pulmonary function test, but previous CT did show extensive emphysematous changes. Bronchodilators would be appropriate. Patient does not appear to be in acute exacerbation at this time, therefore steroids are not indicated. 5. Tobacco abuse Encouraged ongoing smoking cessation. Patient has recently relapsed and started smoking again, despite feeling short of breath with exertion. He denies need for nicotine replacement therapy at this time. Thank for the opportunity to participate in this patient's care, please do not hesitate contact us with any further questions or concerns. This note was generated with [employer] software. It may contain incorrect words, spelling, and punctuation that were not noted in checking the note before signing. Code Visit Inpatient E&M: 73973 Init Hosp L3
[2018-05-10 14:41] LABS: M R Staph aureus DNA By PCR POSITIVE (Negative); Probe Check PASS
[2018-05-10 15:03] LABS: Bacteria 0 SEEN /hpf (None Seen); Mucous, Urine 0 SEEN /hpf (<or=2+); Squamous Epithelial Cells - UA 0 SEEN /hpf (0-5)
[2018-05-10 15:09] LABS: Color, Urine Yellow (Yellow); Glucose, Dipstick Normal (Normal); Ketone-Dipstick Negative (Negative); Leukocyte Esterase-Dipstick 25 /ul (Negative); Nitrite-Dipstick Negative (Negative); Occult Blood-Urine Negative /ul (Negative); Protein-Dipstick 15 mg/dl (Negative); Urine Bilirubin Dipstick Negative (Negative); Urine Clarity Clear (Clear); Urine Urobilinogen Normal (Normal); Urine pH 6.5 (5.0 - 8.0)
[2018-05-10 15:16] LABS: Red Blood Cells-Urine 0-5 SEEN /hpf (0-5); White Blood Cells 0-5 SEEN /hpf (0-5)
[2018-05-10] MEDS: Heparin Injection (Vial) 5,000 UNIT/ML VIAL 5000 UNIT SC ×2 (15:30→21:07)
[2018-05-10] MEDS: hydrALAZINE 50 MG Tablet PO ×2 (15:30→21:05)
--- NOTE | 2018-05-10 15:44 | CASEMGMT ---
RAYMOND SPENCER Readmission review. Readmit date 05/01-05/04/18. Pt was treated for pneumonia and dc'd home independently. 05/10/18- Pt presented to ER with Acute respiratory failure w/hypoxia, CHF. Pt is in ICU, on NC 3L. Lasix 40 mg IV BID. Intro role of CM to patient and his . and patient state he was independent, used cane prior to admission. ADL's were independent also. can assist if needed. One story home, no difficulty getting prescriptions or f/u appointments. -DC PLAN: undetermined. -Pt is on O2, if continues, recommend home oxygen testing prior to dc and PT/OT when medically stable. Deangelo VALADEZ RN ACM
--- NOTE | 2018-05-10 16:03 | PCM.CONS.U ---
Problem List (1) BPH (benign prostatic hyperplasia) Status: Chronic Qualifiers: Lower urinary tract symptom presence: unspecified whether lower urinary tract symptoms present Qualified Code(s): N40.0 - Benign prostatic hyperplasia without lower urinary tract symptoms Reason for Consult Date of Consultation: 05/10/18 Reason for Consultation: Urinary retention and BPH with obstruction History of Present Illness: The patient is a 67 year old male who I saw in the office after hospitalization for heart problems we were in the process of getting his prostate worked up for an outpatient microwave treatment and he is now back in the hospital again with congestive heart failure and pneumonia also has retention of urine. He would probably be a fairly difficult candidate for anesthesia for a TURP given his cardiac history so her plan to do an outpatient treatment of his prostate with microwave therapy. For now he was going to see me tomorrow in the office for preoperative planning for an ultrasound of the cystoscopy I have just do an ultrasound here in the hospital to determine size the prostate for treatment planning for his prostate we will build to the microwave while he is in the hospital for now. Past Medical History Past Medical History (Chronic Problems): Chronic Problems HLD (hyperlipidemia) (Chronic) HTN (hypertension) (Chronic) PAD (peripheral artery disease) (Chronic) CAD (coronary artery disease) (Chronic) COPD (chronic obstructive pulmonary disease) (Chronic) Tobacco dependence (Chronic) CKD (chronic kidney disease) (Chronic) Leukocytosis (Chronic) Anemia (Chronic) BPH (benign prostatic hyperplasia) (Chronic) Allergies irbesartan [From Avapro] Adverse Reaction (Verified 05/10/18 09:40) Other zolpidem [From Ambien] Adverse Reaction (Verified 05/10/18 09:40) Other Home Medications: Ambulatory Orders Medication Instructions Recorded Aspirin [Aspirin, Baby] 81 mg PO DAILY@0800 01/28/18 Clopidogrel Bisulfate [Plavix] 75 mg PO DAILY 01/28/18 Metoprolol Succinate 100 mg PO DAILY 01/28/18 Ropinirole HCl [Requip] 1 mg PO QHS 01/28/18 Rosuvastatin Calcium [Crestor] 40 mg PO QHS 01/28/18 Spironolactone 50 mg PO BID 01/28/18 Tamsulosin HCl [Flomax] 0.4 mg PO BID 01/28/18 hydrALAZINE [Apresoline] 50 mg PO TID 01/28/18 Finasteride [Proscar] 5 mg PO DAILY 04/08/18 Bumetanide 2 mg PO BID #60 tab 04/10/18 Albuterol Aerosols [Ventolin 2.5 mg INHALATION Q4H PRN 05/10/18 Aerosols] Amlodipine [Norvasc] 5 mg PO DAILY 05/10/18 Doxycycline [Vibramycin] 100 mg PO BID 05/10/18 Ferrous Sulfate 325 mg PO BIDCM 05/10/18 Guaifenesin [Mucinex] 600 mg PO BID 05/10/18 Potassium Chloride [K-Dur] 40 meq PO BID 05/10/18 Sertraline HCl [Zoloft] 50 mg PO DAILY 05/10/18 Surgical History: coronary bypass surgery, tonsillectomy Smoking Status: Light Smoker (<10/day) Alcohol: None Drugs: None - *Family History Maternal History Items: No pertinent history Paternal History Items: No pertinent history Review of Systems Constitutional: Denies: Chills, Fever, Weight Change HEENT: Denies: Head Aches, Sinus Congestion, Sinus Drainage Cardiovascular: Denies: Chest Pain, Palpitations Respiratory: Reports: Shortness of Breath. Denies: Cough, Sputum production Gastrointestinal: Denies: Abdominal Pain, Nausea, Vomiting Genitourinary: Reports: Dysuria, Retention Musculoskeletal: Denies: Joint Pain, Joint Tenderness Skin: Denies: Rash, Wounds Neurological: Denies: Numbness, Tingling, Focal weakness Psychiatric: Denies: Anxiety, Depression, Homicidal Ideations, Suicidal Ideations Hematologic/ Lymphatic: Denies: Easy Bruising, Easy Bleeding Physical Exam - Physical Exam Vital Signs Temp 97.3 F L 05/10/18 14:00 Pulse 68 05/10/18 15:30 Resp 24 H 05/10/18 14:30 BP 142/42 H 05/10/18 15:30 Pulse Ox 96 05/10/18 14:30 Intake & Output 05/08/18 05/09/18 05/10/18 23:59 23:59 23:59 Weight: 87.9 kg General: Alert, Oriented x3 HEENT: Atraumatic Oral: Moist Mucosa Neck: Supple Lungs: Normal air movement Abdomen: Soft Laboratory Tests Past 24 Hrs 05/10/18 05/10/18 05/10/18 12:50 12:55 12:55 Sodium 136 Potassium 5.1 Chloride 102 Carbon Dioxide 25.0 Anion Gap 9 BUN 62 H Creatinine 2.26 H Estim Creat Clear Calc 30.06 Est GFR (MDRD) Af Amer 38 L Est GFR (MDRD) Non-Af 31 L BUN/Creatinine Ratio 27.4 H Glucose 136 H Calcium 8.5 Troponin I < 0.015 Urine Color Urine Clarity Urine pH Ur Specific [place] Urine Protein Urine Glucose (UA) Urine Ketones Urine Occult Blood Urine Nitrite Urine Bilirubin Urine Urobilinogen Ur Leukocyte Esterase Urine RBC Urine WBC Ur Squamous Epith Cells Urine Bacteria Urine Mucus MRSA (PCR) POSITIVE H 05/10/18 05/10/18 14:55 15:45 Sodium Potassium Chloride Carbon Dioxide Anion Gap BUN Creatinine Estim Creat Clear Calc Est GFR (MDRD) Af Amer Est GFR (MDRD) Non-Af BUN/Creatinine Ratio Glucose Calcium Troponin I Pending Urine Color Yellow Urine Clarity Clear Urine pH 6.5 Ur Specific [place] 1.010 Urine Protein 15 H Urine Glucose (UA) Normal Urine Ketones Negative Urine Occult Blood Negative Urine Nitrite Negative Urine Bilirubin Negative Urine Urobilinogen Normal Ur Leukocyte Esterase 25 H Urine RBC 0-5 SEEN Urine WBC 0-5 SEEN Ur Squamous Epith Cells 0 SEEN Urine Bacteria 0 SEEN Urine Mucus 0 SEEN MRSA (PCR) Assessment/Plan All Active Problems Pneumonia (Acute) UTI (urinary tract infection) (Resolved) Sepsis (Resolved) Acute respiratory failure with hypoxia (Acute) Diastolic CHF (Acute) Respiratory failure with hypoxia (Acute) 67-year-old male with a history of BPH with obstruction currently the catheter immediately back in retention really has difficulty urinating significant outlet obstruction. I will order an ultrasound of his prostate. He does have an appointment with me tomorrow and want to cancel that since he is in the hospital. And my office will then contact him to set him up for microwave treatment in the office once he is discharged from the hospital in stable condition.
--- NOTE | 2018-05-10 16:38 | PCM.CONS.C ---
Problem List (1) Acute respiratory failure with hypoxia Status: Acute (2) HLD (hyperlipidemia) Status: Chronic Qualifiers: Hyperlipidemia type: unspecified Qualified Code(s): E78.5 - Hyperlipidemia, unspecified (3) HTN (hypertension) Status: Chronic Qualifiers: Hypertension type: essential hypertension Qualified Code(s): I10 - Essential (primary) hypertension (4) PAD (peripheral artery disease) Status: Chronic (5) CAD (coronary artery disease) Status: Chronic Qualifiers: Coronary Disease-Associated Artery/Lesion type: unspecified vessel or lesion type [place] vs. transplanted heart: unspecified whether [place] or transplanted heart Associated angina: angina presence unspecified Qualified Code(s): I25.10 - Atherosclerotic heart disease of [place] coronary artery without angina pectoris (6) CKD (chronic kidney disease) Status: Chronic Qualifiers: Chronic kidney disease stage: stage 3 (moderate) Qualified Code(s): N18.3 - Chronic kidney disease, stage 3 (moderate) Reason for Consult Date of Consultation: 05/10/18 Reason for Consultation: Congestive heart failure, shortness of breath, coronary disease, hypertension, hyperlipidemia, peripheral vascular disease, recent pneumonia, chronic renal insufficiency History of Present Illness: The patient is a 67 year old M, formerly seen by myself in the distant past at [facility], with a history of hypertension, hypercholesterolemia, obesity, coronary artery disease status post multiple stents in the past, total of 13 stents per the patient, most recent stenting in [place] in May 2017. In addition he underwent three-vessel bypass surgery in 2010 but the patient cannot recall whether his stents are in the bypass grafts or not. Patient continues to smoke intermittently, and was discharged last after being admitted to [facility] for pneumonia. Over the last 24-48 hours he has had worsening lower extremity edema, shortness of breath, orthopnea and PND. He presented to [facility] ER in respiratory distress and was placed on BiPAP therapy, given IV Lasix and started on IV nitroglycerin drip. He was weaned off his BiPAP therapy and is currently on nitro drip. In addition he denies any chest pain, is compliant with his medications, as well as his fluid restriction. Patient underwent a 2D echo with Doppler on 04/07/18 which showed an EF around 55%, RVSP 42 mmHg, and stage II diastolic dysfunction. Patient has had no stress testing since his stent in May 2017. [] Past Medical History Allergies/Adverse Reactions: Allergies irbesartan [From Avapro] Adverse Reaction (Verified 05/10/18 09:40) Other zolpidem [From Ambien] Adverse Reaction (Verified 05/10/18 09:40) Other Home Medications: Ambulatory Orders Medication Instructions Recorded Aspirin [Aspirin, Baby] 81 mg PO DAILY@0800 01/28/18 Clopidogrel Bisulfate [Plavix] 75 mg PO DAILY 01/28/18 Metoprolol Succinate 100 mg PO DAILY 01/28/18 Ropinirole HCl [Requip] 1 mg PO QHS 01/28/18 Rosuvastatin Calcium [Crestor] 40 mg PO QHS 01/28/18 Spironolactone 50 mg PO BID 01/28/18 Tamsulosin HCl [Flomax] 0.4 mg PO BID 01/28/18 hydrALAZINE [Apresoline] 50 mg PO TID 01/28/18 Finasteride [Proscar] 5 mg PO DAILY 04/08/18 Bumetanide 2 mg PO BID #60 tab 04/10/18 Albuterol Aerosols [Ventolin 2.5 mg INHALATION Q4H PRN 05/10/18 Aerosols] Amlodipine [Norvasc] 5 mg PO DAILY 05/10/18 Doxycycline [Vibramycin] 100 mg PO BID 05/10/18 Ferrous Sulfate 325 mg PO BIDCM 05/10/18 Guaifenesin [Mucinex] 600 mg PO BID 05/10/18 Potassium Chloride [K-Dur] 40 meq PO BID 05/10/18 Sertraline HCl [Zoloft] 50 mg PO DAILY 05/10/18 Past Medical History (Chronic Problems): Chronic Problems HLD (hyperlipidemia) (Chronic) HTN (hypertension) (Chronic) PAD (peripheral artery disease) (Chronic) CAD (coronary artery disease) (Chronic) COPD (chronic obstructive pulmonary disease) (Chronic) Tobacco dependence (Chronic) CKD (chronic kidney disease) (Chronic) Leukocytosis (Chronic) Anemia (Chronic) BPH (benign prostatic hyperplasia) (Chronic) Surgical History: coronary bypass surgery, tonsillectomy - *Family History Maternal History Items: No pertinent history Paternal History Items: No pertinent history Smoking Status: Light Smoker (<10/day) Alcohol: None Drugs: None Review of Systems - Review of Systems General: Denies: Fever, Night Sweats, Fatigue Cardiovascular: Reports: Shortness of Breath, Shortness of Breath at Rest, Orthopnea, PND, Peripheral Edema. Denies: Chest Discomfort, Palpitations, Lightheadedness, Dizziness, Near Syncope, Syncope Respiratory: Denies: Cough, Sputum Production, Hemoptysis Gastrointestinal: Denies: Hematemesis, Hematochezia, Melena Genitourinary: Denies: Dysuria, Hematuria Skin: Denies: Rash Subjectve: Patient laying in bed, no acute distress. Objective: Vital Signs Temp Pulse Resp BP Pulse Ox 97.3 F L 68 24 H 142/42 H 96 05/10/18 14:00 05/10/18 15:30 05/10/18 14:30 05/10/18 15:30 05/10/18 14:30 Oxygen Flow Rate (L/min) 3 Oxygen Delivery Method Nasal Cannula Weight: 193 lb 12.581 oz Body Mass Index (BMI) 30.3 General: Awake, Alert, Oriented x 3 HEENT: PERRL, EOMI, Sclera Non Icteric Neck: Supple, Good ROM, No Lymph Node Enlargement Lungs: Rales - Viral Bases Cardiovascular: Regular Rhythm, Normal S1, Normal S2, No Rubs, No Gallops Vascular: No Carotid Bruits, Normal Femoral Pulses, Normal Radial Pulses, Normal Dorsalis Pedal Pulse, Normal Posterior Tibial Pulses Abdomen: Bowel Sounds Present, Soft, Non Tender, No HSM, No Organomegaly Extremities: No Cyanosis, No Clubbing, No edema, Bilateral Edema +1 Neurological: No Focal Motor or Sensory Deficit 05/10/18 12:55: Sodium 136, Potassium 5.1, Chloride 102, Carbon Dioxide 25.0, Anion Gap 9, BUN 62 H, Creatinine 2.26 H, Est GFR (MDRD) Af Amer 38 L, Est GFR (MDRD) Non-Af 31 L, BUN/Creatinine Ratio 27.4 H, Glucose 136 H, Calcium 8.5 05/10/18 12:55: Troponin I < 0.015 05/10/18 14:55: Urine Color Yellow, Urine Clarity Clear, Urine pH 6.5, Ur Specific [place] 1.010, Urine Protein 15 H, Urine Glucose (UA) Normal, Urine Ketones Negative, Urine Occult Blood Negative, Urine Nitrite Negative, Urine Bilirubin Negative, Urine Urobilinogen Normal, Ur Leukocyte Esterase 25 H, Urine RBC 0-5 SEEN, Urine WBC 0-5 SEEN 05/10/18 15:45: Troponin I < 0.015 Rhythm: EKG: ECHO: Stress Test: Cardiac Cath: PCI: CT Surgery: Holter monitor: EPS: PPM: CXR: Chest CT Scan: Assessment/Plan 1. Congestive heart failure: The patient had recently been admitted for pneumonia, and returns now with congestive heart failure including hypoxia, dyspnea, orthopnea, PND, and lower extremity edema. His echocardiogram done recently showed intact LV function with stage II diastolic dysfunction and at least mild pulmonary hypertension. At this point I would recommend Lasix IV 80 mg twice daily, Imdur 60 mg a day, hydralazine 25 mg p.o. twice daily, and switching to Coreg 6.25 mg p.o. twice daily once he is reached his dry weight. Would recommend ruling out for myocardial infarction, and once he is reached his dry weight undergoing a noninvasive stress test given his history of coronary artery disease. If this is grossly abnormal he may require repeat coronary angiogram and graft angiography. Patient is a history of 13 stents, the most recent of which was in May 2017 at an outside facility. 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 2. Hyperlipidemia: Recommend obtaining a fasting lipid profile. Continue statin based medication. His LDL should be less than 70. 3. Tobacco cessation: I had a long and thorough discussion with the patient regarding tobacco use and have strongly recommended discontinuation of all tobacco products. 4. Discussed with Dr. Caicedo and Dr. Duong. Thank you very much for the opportunity to participate in the cardiac care of your patient. Consultation time took place between 4 PM and 4:30 PM. Code Visit Inpatient E&M: 12102 Init Hosp L2
--- NOTE | 2018-05-10 16:51 | CON.PCM_ITS ---
Problem List (1) Acute respiratory failure with hypoxia Status: Acute (2) HLD (hyperlipidemia) Status: Chronic Qualifiers: Hyperlipidemia type: unspecified Qualified Code(s): E78.5 - Hyperlipidemia , unspecified (3) HTN (hypertension) Status: Chronic Qualifiers: Hypertension type: essential hypertension Qualified Code(s): I10 - Essential (primary) hypertension (4) PAD (peripheral artery disease) Status: Chronic (5) CAD (coronary artery disease) Status: Chronic Qualifiers: Coronary Disease-Associated Artery/Lesion type: unspecified vessel or lesion type [place] vs. transplanted heart: unspecified whether [place] or transplanted heart Associated angina: angina presence unspecified Qualified Code(s): I25.10 - Atherosclerotic heart disease of [place] coronary artery without angina pectoris (6) CKD (chronic kidney disease) Status: Chronic Qualifiers: Chronic kidney disease stage: stage 3 (moderate) Qualified Code(s): N18.3 - Chronic kidney disease, stage 3 (moderate) Reason for Consult Date of Consultation: 05/10/18 Reason for Consultation: Congestive heart failure, shortness of breath, coronary disease, hypertension, hyperlipidemia, peripheral vascular disease, recent pneumonia, chronic renal insufficiency History of Present Illness: The patient is a 67 year old M, formerly seen by myself in the distant past at [facility], with a history of hypertension, hypercholesterolemia, obesity, coronary artery disease status post multiple stents in the past, total of 13 stents per the patient, most recent stenting in [place] in May 2017. In addition he underwent three-vessel bypass surgery in 2010 but the patient cannot recall whether his stents are in the bypass grafts or not. Patient continues to smoke intermittently, and was discharged last after being admitted to [facility] for pneumonia. Over the last 24-48 hours he has had worsening lower extremity edema, shortness of breath , orthopnea and PND. He presented to [facility] ER in respiratory distress and was placed on BiPAP therapy, given IV Lasix and started on IV nitroglycerin drip. He was weaned off his BiPAP therapy and is currently on nitro drip. In addition he denies any chest pain, is compliant with his medications, as well as his fluid restriction. Patient underwent a 2D echo with Doppler on 04/07 which showed an EF around 55%, RVSP 42 mmHg, and stage II diastolic dysfunction. Patient has had no stress testing since his stent in May 2017. [] Past Medical History Allergies/Adverse Reactions: Allergies irbesartan [From Avapro] Adverse Reaction (Verified 05/10/18 09:40) Other zolpidem [From Ambien] Adverse Reaction (Verified 05/10/18 09:40) Other Home Medications: Ambulatory Orders Medication Instructions Recorded Aspirin [Aspirin, Baby] 81 mg PO DAILY@0800 01/28/18 Clopidogrel Bisulfate [Plavix] 75 mg PO DAILY 01/28/18 Metoprolol Succinate 100 mg PO DAILY 01/28/18 Ropinirole HCl [Requip] 1 mg PO QHS 01/28/18 Rosuvastatin Calcium [Crestor] 40 mg PO QHS 01/28/18 Spironolactone 50 mg PO BID 01/28/18 Tamsulosin HCl [Flomax] 0.4 mg PO BID 01/28/18 hydrALAZINE [Apresoline] 50 mg PO TID 01/28/18 Finasteride [Proscar] 5 mg PO DAILY 04/08/18 Bumetanide 2 mg PO BID #60 tab 04/10/18 Albuterol Aerosols [Ventolin 2.5 mg INHALATION Q4H PRN 05/10/18 Aerosols] Amlodipine [Norvasc] 5 mg PO DAILY 05/10/18 Doxycycline [Vibramycin] 100 mg PO BID 05/10/18 Ferrous Sulfate 325 mg PO BIDCM 05/10/18 Guaifenesin [Mucinex] 600 mg PO BID 05/10/18 Potassium Chloride [K-Dur] 40 meq PO BID 05/10/18 Sertraline HCl [Zoloft] 50 mg PO DAILY 05/10/18 Past Medical History (Chronic Problems): Chronic Problems HLD (hyperlipidemia) (Chronic) HTN (hypertension) (Chronic) PAD (peripheral artery disease) (Chronic) CAD (coronary artery disease) (Chronic) COPD (chronic obstructive pulmonary disease) (Chronic) Tobacco dependence (Chronic) CKD (chronic kidney disease) (Chronic) Leukocytosis (Chronic) Anemia (Chronic) BPH (benign prostatic hyperplasia) (Chronic) Surgical History: coronary bypass surgery, tonsillectomy - *Family History Maternal History Items: No pertinent history Paternal History Items: No pertinent history Smoking Status: Light Smoker (<10/day) Alcohol: None Drugs: None Review of Systems - Review of Systems General: Denies: Fever, Night Sweats, Fatigue Cardiovascular: Reports: Shortness of Breath, Shortness of Breath at Rest, Orthopnea, PND, Peripheral Edema. Denies: Chest Discomfort, Palpitations, Lightheadedness, Dizziness, Near Syncope, Syncope Respiratory: Denies: Cough, Sputum Production, Hemoptysis Gastrointestinal: Denies: Hematemesis, Hematochezia, Melena Genitourinary: Denies: Dysuria, Hematuria Skin: Denies: Rash Subjectve: Patient laying in bed, no acute distress. Objective: Vital Signs Temp Pulse Resp BP Pulse Ox 97.3 F L 68 24 H 142/42 H 96 05/10/18 14:00 05/10/18 15:30 05/10/18 14:30 05/10/18 15:30 05/10/18 14:30 Oxygen Flow Rate (L/min) 3 Oxygen Delivery Method Nasal Cannula Weight: 193 lb 12.581 oz Body Mass Index (BMI) 30.3 General: Awake, Alert, Oriented x 3 HEENT: PERRL, EOMI, Sclera Non Icteric Neck: Supple, Good ROM, No Lymph Node Enlargement Lungs: Rales - Viral Bases Cardiovascular: Regular Rhythm, Normal S1, Normal S2, No Rubs, No Gallops Vascular: No Carotid Bruits, Normal Femoral Pulses, Normal Radial Pulses, Normal Dorsalis Pedal Pulse, Normal Posterior Tibial Pulses Abdomen: Bowel Sounds Present, Soft, Non Tender, No HSM, No Organomegaly Extremities: No Cyanosis, No Clubbing, No edema, Bilateral Edema +1 Neurological: No Focal Motor or Sensory Deficit 05/10/18 12:55: Sodium 136, Potassium 5.1, Chloride 102, Carbon Dioxide 25.0, Anion Gap 9, BUN 62 H, Creatinine 2.26 H, Est GFR (MDRD) Af Amer 38 L, Est GFR ( MDRD) Non-Af 31 L, BUN/Creatinine Ratio 27.4 H, Glucose 136 H, Calcium 8.5 05/10/18 12:55: Troponin I < 0.015 05/10/18 14:55: Urine Color Yellow, Urine Clarity Clear, Urine pH 6.5, Ur Specific [place] 1.010, Urine Protein 15 H, Urine Glucose (UA) Normal, Urine Ketones Negative, Urine Occult Blood Negative, Urine Nitrite Negative, Urine Bilirubin Negative, Urine Urobilinogen Normal, Ur Leukocyte Esterase 25 H, Urine RBC 0-5 SEEN, Urine WBC 0-5 SEEN 05/10/18 15:45: Troponin I < 0.015 Rhythm: EKG: ECHO: Stress Test: Cardiac Cath: PCI: CT Surgery: Holter monitor: EPS: PPM: CXR: Chest CT Scan: Assessment/Plan 1. Congestive heart failure: The patient had recently been admitted for pneumonia, and returns now with congestive heart failure including hypoxia, dyspnea, orthopnea, PND, and lower extremity edema. His echocardiogram done recently showed intact LV function with stage II diastolic dysfunction and at least mild pulmonary hypertension. At this point I would recommend Lasix IV 80 mg twice daily, Imdur 60 mg a day, hydralazine 25 mg p.o. twice daily, and switching to Coreg 6.25 mg p.o. twice daily once he is reached his dry weight. Would recommend ruling out for myocardial infarction, and once he is reached his dry weight undergoing a noninvasive stress test given his history of coronary artery disease. If this is grossly abnormal he may require repeat coronary angiogram and graft angiography. Patient is a history of 13 stents, the most recent of which was in May 2017 at an outside facility. 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 2. Hyperlipidemia: Recommend obtaining a fasting lipid profile. Continue statin based medication. His LDL should be less than 70. 3. Tobacco cessation: I had a long and thorough discussion with the patient regarding tobacco use and have strongly recommended discontinuation of all tobacco products. 4. Discussed with Dr. Caicedo and Dr. Duong. Thank you very much for the opportunity to participate in the cardiac care of your patient. Consultation time took place between 4 PM and 4:30 PM. Code Visit Inpatient E&M: 34404 Init Hosp L2
[2018-05-10] MEDS: Ferrous Sulfate 325 MG Tablet PO (17:11)
[2018-05-10] MEDS: 0.9% NaCl Peripheral Flush Adult/Peds IV ×2 (17:11→21:04)
[2018-05-10] MEDS: Furosemide 40 MG/4 ML Vial IV (17:11)
--- NOTE | 2018-05-10 18:23 | PCM.CONS.R ---
Problem List (1) DAI (acute kidney injury) Status: Acute (2) Diastolic CHF Status: Acute Qualifiers: (3) CKD (chronic kidney disease) Status: Chronic Qualifiers: Chronic kidney disease stage: stage 3 (moderate) Qualified Code(s): N18.3 - Chronic kidney disease, stage 3 (moderate) Consultation - Renal 05/10/18 PCP/ Referring MD: Requesting physician: Dr Duong Primary care physician: SEUN Poe Reason for Consultation:: DAI - History of Present Illness History of Present Illness: The patient is a 67 year old M who presented to hospital with dyspnea. He has extensive cardiac history of CAD s/p multiple cardiac stenting in the past, most of his care was in [place] before, recently switched his care to [facility]. CKD stage 3 with baseline creatinine in mid 1 s. depending on volume status, creatinine was as low as 1.1 within last 3 months. also has urinary retention, required grider taken out last admission, now grider back in recently admitted with pneumonia now back in with CHF urology cardiology on case - Allergies Allergies: Allergies irbesartan [From Avapro] Adverse Reaction (Verified 05/10/18 09:40) Other zolpidem [From Ambien] Adverse Reaction (Verified 05/10/18 09:40) Other - Current Medications Current Medications: Current Medications Acetaminophen (Tylenol) 650 mg PO Q6H PRN PRN PRN Reason: Mild Pain (1-3)/Temp > 100.7 F Albuterol Sulfate (Ventolin Aerosols) 2.5 mg INHALATION Q4H PRN PRN Reason: SHORTNESS OF BREATH Albuterol/Ipratropium (Duoneb) 3 ml INHALATION Q6HWA.RT JAIME Last Admin: 05/10/18 17:25 Dose: 3 ml Amlodipine Besylate (Norvasc) 5 mg PO DAILY [facility] Aspirin (Aspirin, Baby) 81 mg PO DAILY@0800 [facility] Atorvastatin Calcium (Lipitor) 80 mg PO QHS [facility] Carvedilol (Coreg) 6.25 mg PO BID [facility] Clopidogrel Bisulfate (Plavix) 75 mg PO DAILY [facility] Famotidine (Pepcid) 20 mg PO DAILY [facility] Last Admin: 05/10/18 17:11 Dose: 325 mg Finasteride (Proscar) 5 mg PO DAILY [facility] Furosemide (Lasix) 80 mg IV BID@1000,1800 [facility] Guaifenesin (Mucinex) 600 mg PO BID [facility] Heparin Sodium (Porcine) (Heparin Na) 5,000 unit SC Q8 [facility] Last Admin: 05/10/18 15:30 Dose: 5,000 u Hydralazine HCl (Apresoline) 50 mg PO TID [facility] Last Admin: 05/10/18 15:30 Dose: 50 mg Magnesium Hydroxide (Milk Of Magnesia) 30 ml PO DAILY PRN PRN PRN Reason: Constipation Morphine Sulfate () 1 mg IV Q4H PRN PRN PRN Reason: MOD-SEVERE PAIN (4-10/10) Ondansetron HCl (Zofran) 4 mg IV Q8H PRN PRN PRN Reason: Nausea Pramipexole Dihydrochloride (Mirapex) 0.5 mg PO QHS [facility] Sertraline HCl (Zoloft) 50 mg PO DAILY [facility] Sodium Chloride () 5 - 30 ml IV UD PRN PRN Reason: SALINE FLUSH Last Admin: 05/10/18 17:11 Dose: 10 ml Tamsulosin HCl (Flomax) 0.4 mg PO BID [facility] - Past Medical History Past Medical History (Chronic Problems): Chronic Problems HLD (hyperlipidemia) (Chronic) HTN (hypertension) (Chronic) PAD (peripheral artery disease) (Chronic) CAD (coronary artery disease) (Chronic) COPD (chronic obstructive pulmonary disease) (Chronic) Tobacco dependence (Chronic) CKD (chronic kidney disease) (Chronic) Leukocytosis (Chronic) Anemia (Chronic) BPH (benign prostatic hyperplasia) (Chronic) - Past Surgical History Surgical History: coronary bypass surgery, tonsillectomy - Social History Smoking Status: Light Smoker (<10/day) Alcohol: None Drugs: None - Family History Maternal History Items: No pertinent history Paternal History Items: No pertinent history Review of Systems Constitutional: Denies: Chills, Fever, Weight Change HEENT: Denies: Head Aches, Sinus Congestion, Sinus Drainage Cardiovascular: Denies: Chest Pain, Palpitations Respiratory: Reports: Cough, Shortness of Breath, Shortness of breath at rest. Denies: Sputum production Gastrointestinal: Denies: Abdominal Pain, Nausea, Vomiting Genitourinary: Denies: Dysuria Musculoskeletal: Denies: Joint Pain, Joint Tenderness Skin: Denies: Rash, Wounds Neurological: Denies: Numbness, Tingling, Focal weakness Psychiatric: Denies: Anxiety, Depression, Homicidal Ideations, Suicidal Ideations Hematologic/ Lymphatic: Denies: Easy Bruising, Easy Bleeding Patient Problems: Active and Suspected Problems DAI (acute kidney injury) (Acute) - Physical Exam General: Alert, Oriented x3, Cooperative HEENT: Atraumatic, PERRLA, EOMI, Normocephalic Neck: Supple, No JVD, Negative Carotid Bruits Lungs: Clear to auscultation, Normal air movement Cardiovascular: Regular rate, No murmurs Abdomen: Bowel Sounds Present, Soft, Non Tender Extremities: No edema, Capillary Refill Less than 3 Seconds Skin: No rashes, No breakdown Musculoskeletal: No Tenderness to Palpation of Joints or Extremities Neurological: Cranial nerves II-XII grossly intact Psych/Mental Status: Normal Affect, Appropriate Vital Signs Temp Pulse Resp BP Pulse Ox 98.1 F 71 26 H 152/50 H 96 05/10/18 16:00 05/10/18 17:25 05/10/18 17:25 05/10/18 16:30 05/10/18 16:30 Oxygen Flow Rate (L/min) 3 Oxygen Delivery Method Nasal Cannula Weight: 87.9 kg Body Mass Index (BMI) 30.3 Intake and Output for Last 24 Hours 05/08/18 05/09/18 05/10/18 23:59 23:59 23:59 Intake Total 415 / 415 Output Total 900 / 900 Balance -485 / -485 Laboratory Tests Past 24 Hrs 05/10/18 05/10/18 05/10/18 12:50 12:55 12:55 Sodium 136 Potassium 5.1 Chloride 102 Carbon Dioxide 25.0 Anion Gap 9 BUN 62 H Creatinine 2.26 H Estim Creat Clear Calc 30.06 Est GFR (MDRD) Af Amer 38 L Est GFR (MDRD) Non-Af 31 L BUN/Creatinine Ratio 27.4 H Glucose 136 H Calcium 8.5 Troponin I < 0.015 Urine Color Urine Clarity Urine pH Ur Specific [place] Urine Protein Urine Glucose (UA) Urine Ketones Urine Occult Blood Urine Nitrite Urine Bilirubin Urine Urobilinogen Ur Leukocyte Esterase Urine RBC Urine WBC Ur Squamous Epith Cells Urine Bacteria Urine Mucus MRSA (PCR) POSITIVE H 05/10/18 05/10/18 14:55 15:45 Sodium Potassium Chloride Carbon Dioxide Anion Gap BUN Creatinine Estim Creat Clear Calc Est GFR (MDRD) Af Amer Est GFR (MDRD) Non-Af BUN/Creatinine Ratio Glucose Calcium Troponin I < 0.015 Urine Color Yellow Urine Clarity Clear Urine pH 6.5 Ur Specific [place] 1.010 Urine Protein 15 H Urine Glucose (UA) Normal Urine Ketones Negative Urine Occult Blood Negative Urine Nitrite Negative Urine Bilirubin Negative Urine Urobilinogen Normal Ur Leukocyte Esterase 25 H Urine RBC 0-5 SEEN Urine WBC 0-5 SEEN Ur Squamous Epith Cells 0 SEEN Urine Bacteria 0 SEEN Urine Mucus 0 SEEN MRSA (PCR) Assessment/Plan All Active Problems DAI (acute kidney injury) (Acute) Pneumonia (Acute) UTI (urinary tract infection) (Resolved) Sepsis (Resolved) Acute respiratory failure with hypoxia (Acute) Diastolic CHF (Acute) Respiratory failure with hypoxia (Acute) DAI. Baseline creatinine at the time of dc from [facility] in february was 1.1. recently in mid 1s. UA looks benign. SPEP negative. DAI is likely cardiorenal Renal artery stenosis. significant history of smoking. coronary, PVD. has cardiac stents and from imaging studies looks like he has a aortobifemoral graft with possible mesentric stent. CT abdomen from last month shows Left kidney is atrophic and is likely dysfunctional right renal artery has extensive calcification at origin (this was a non contrast study). Likely has stenosis, possibly hemodynamically significant looking at anatomy on CT, he has extensive calcification all over aorta and most of renal artery. Echo is not too bad I suspect he may have hemodynamically significant renal A stenosis thats contributing to CHF episodes d/w Dr Barrientos. If plan is for angiogram this hospitalization, might be worthwhile to get a renal angiogram same time. not sure if stenting is possible with extensive calcification. may need vascular surgery evaluation.
--- NOTE | 2018-05-10 18:32 | CON.PCM_ITS ---
Problem List (1) DAI (acute kidney injury) Status: Acute (2) Diastolic CHF Status: Acute Qualifiers: (3) CKD (chronic kidney disease) Status: Chronic Qualifiers: Chronic kidney disease stage: stage 3 (moderate) Qualified Code(s): N18.3 - Chronic kidney disease, stage 3 (moderate) Consultation - Renal 05/10/18 PCP/ Referring MD: Requesting physician: Dr Duong Primary care physician: SEUN Poe Reason for Consultation:: DAI - History of Present Illness History of Present Illness: The patient is a 67 year old M who presented to hospital with dyspnea. He has extensive cardiac history of CAD s/p multiple cardiac stenting in the past, most of his care was in [place] before, recently switched his care to [facility]. CKD stage 3 with baseline creatinine in mid 1 s. depending on volume status, creatinine was as low as 1.1 within last 3 months. also has urinary retention, required grider taken out last admission, now grider back in recently admitted with pneumonia now back in with CHF urology cardiology on case - Allergies Allergies: Allergies irbesartan [From Avapro] Adverse Reaction (Verified 05/10/18 09:40) Other zolpidem [From Ambien] Adverse Reaction (Verified 05/10/18 09:40) Other - Current Medications Current Medications: Current Medications Acetaminophen (Tylenol) 650 mg PO Q6H PRN PRN PRN Reason: Mild Pain (1-3)/Temp > 100.7 F Albuterol Sulfate (Ventolin Aerosols) 2.5 mg INHALATION Q4H PRN PRN Reason: SHORTNESS OF BREATH Albuterol/Ipratropium (Duoneb) 3 ml INHALATION Q6HWA.RT JAIME Last Admin: 05/10/18 17:25 Dose: 3 ml Amlodipine Besylate (Norvasc) 5 mg PO DAILY [facility] Aspirin (Aspirin, Baby) 81 mg PO DAILY@0800 [facility] Atorvastatin Calcium (Lipitor) 80 mg PO QHS [facility] Carvedilol (Coreg) 6.25 mg PO BID [facility] Clopidogrel Bisulfate (Plavix) 75 mg PO DAILY [facility] Famotidine (Pepcid) 20 mg PO DAILY [facility]ous [facility]) [facility] Last Admin: 05/10/18 17:11 Dose: 325 mg Finasteride (Proscar) 5 mg PO DAILY [facility] Furosemide (Lasix) 80 mg IV BID@1000,1800 [facility] Guaifenesin (Mucinex) 600 mg PO BID [facility] Heparin Sodium (Porcine) (Heparin Na) 5,000 unit SC Q8 [facility] Last Admin: 05/10/18 15:30 Dose: 5,000 u Hydralazine HCl (Apresoline) 50 mg PO TID [facility] Last Admin: 05/10/18 15:30 Dose: 50 mg Magnesium Hydroxide (Milk Of Magnesia) 30 ml PO DAILY PRN PRN PRN Reason: Constipation Morphine Sulfate () 1 mg IV Q4H PRN PRN PRN Reason: MOD-SEVERE PAIN (4-10/10) Ondansetron HCl (Zofran) 4 mg IV Q8H PRN PRN PRN Reason: Nausea Pramipexole Dihydrochloride (Mirapex) 0.5 mg PO QHS [facility] Sertraline HCl (Zoloft) 50 mg PO DAILY [facility] Sodium Chloride () 5 - 30 ml IV UD PRN PRN Reason: SALINE FLUSH Last Admin: 05/10/18 17:11 Dose: 10 ml Tamsulosin HCl (Flomax) 0.4 mg PO BID [facility] - Past Medical History Past Medical History (Chronic Problems): Chronic Problems HLD (hyperlipidemia) (Chronic) HTN (hypertension) (Chronic) PAD (peripheral artery disease) (Chronic) CAD (coronary artery disease) (Chronic) COPD (chronic obstructive pulmonary disease) (Chronic) Tobacco dependence (Chronic) CKD (chronic kidney disease) (Chronic) Leukocytosis (Chronic) Anemia (Chronic) BPH (benign prostatic hyperplasia) (Chronic) - Past Surgical History Surgical History: coronary bypass surgery, tonsillectomy - Social History Smoking Status: Light Smoker (<10/day) Alcohol: None Drugs: None - Family History Maternal History Items: No pertinent history Paternal History Items: No pertinent history Review of Systems Constitutional: Denies: Chills, Fever, Weight Change HEENT: Denies: Head Aches, Sinus Congestion, Sinus Drainage Cardiovascular: Denies: Chest Pain, Palpitations Respiratory: Reports: Cough, Shortness of Breath, Shortness of breath at rest. Denies: Sputum production Gastrointestinal: Denies: Abdominal Pain, Nausea, Vomiting Genitourinary: Denies: Dysuria Musculoskeletal: Denies: Joint Pain, Joint Tenderness Skin: Denies: Rash, Wounds Neurological: Denies: Numbness, Tingling, Focal weakness Psychiatric: Denies: Anxiety, Depression, Homicidal Ideations, Suicidal Ideations Hematologic/ Lymphatic: Denies: Easy Bruising, Easy Bleeding Patient Problems: Active and Suspected Problems DAI (acute kidney injury) (Acute) - Physical Exam General: Alert, Oriented x3, Cooperative HEENT: Atraumatic, PERRLA, EOMI, Normocephalic Neck: Supple, No JVD, Negative Carotid Bruits Lungs: Clear to auscultation, Normal air movement Cardiovascular: Regular rate, No murmurs Abdomen: Bowel Sounds Present, Soft, Non Tender Extremities: No edema, Capillary Refill Less than 3 Seconds Skin: No rashes, No breakdown Musculoskeletal: No Tenderness to Palpation of Joints or Extremities Neurological: Cranial nerves II-XII grossly intact Psych/Mental Status: Normal Affect, Appropriate Vital Signs Temp Pulse Resp BP Pulse Ox 98.1 F 71 26 H 152/50 H 96 05/10/18 16:00 05/10/18 17:25 05/10/18 17:25 05/10/18 16:30 05/10/18 16:30 Oxygen Flow Rate (L/min) 3 Oxygen Delivery Method Nasal Cannula Weight: 87.9 kg Body Mass Index (BMI) 30.3 Intake and Output for Last 24 Hours 05/08/18 05/09/18 05/10/18 23:59 23:59 23:59 Intake Total 415 / 415 Output Total 900 / 900 Balance -485 / -485 Laboratory Tests Past 24 Hrs 05/10/18 05/10/18 05/10/18 12:50 12:55 12:55 Sodium 136 Potassium 5.1 Chloride 102 Carbon Dioxide 25.0 Anion Gap 9 BUN 62 H Creatinine 2.26 H Estim Creat Clear Calc 30.06 Est GFR (MDRD) Af Amer 38 L Est GFR (MDRD) Non-Af 31 L BUN/Creatinine Ratio 27.4 H Glucose 136 H Calcium 8.5 Troponin I < 0.015 Urine Color Urine Clarity Urine pH Ur Specific [place] Urine Protein Urine Glucose (UA) Urine Ketones Urine Occult Blood Urine Nitrite Urine Bilirubin Urine Urobilinogen Ur Leukocyte Esterase Urine RBC Urine WBC Ur Squamous Epith Cells Urine Bacteria Urine Mucus MRSA (PCR) POSITIVE H 05/10/18 05/10/18 14:55 15:45 Sodium Potassium Chloride Carbon Dioxide Anion Gap BUN Creatinine Estim Creat Clear Calc Est GFR (MDRD) Af Amer Est GFR (MDRD) Non-Af BUN/Creatinine Ratio Glucose Calcium Troponin I < 0.015 Urine Color Yellow Urine Clarity Clear Urine pH 6.5 Ur Specific [place] 1.010 Urine Protein 15 H Urine Glucose (UA) Normal Urine Ketones Negative Urine Occult Blood Negative Urine Nitrite Negative Urine Bilirubin Negative Urine Urobilinogen Normal Ur Leukocyte Esterase 25 H Urine RBC 0-5 SEEN Urine WBC 0-5 SEEN Ur Squamous Epith Cells 0 SEEN Urine Bacteria 0 SEEN Urine Mucus 0 SEEN MRSA (PCR) Assessment/Plan All Active Problems DAI (acute kidney injury) (Acute) Pneumonia (Acute) UTI (urinary tract infection) (Resolved) Sepsis (Resolved) Acute respiratory failure with hypoxia (Acute) Diastolic CHF (Acute) Respiratory failure with hypoxia (Acute) DAI. Baseline creatinine at the time of dc from [facility] in february was 1.1. recently in mid 1s. UA looks benign. SPEP negative. DAI is likely cardiorenal Renal artery stenosis. significant history of smoking. coronary, PVD. has cardiac stents and from imaging studies looks like he has a aortobifemoral graft with possible mesentric stent. CT abdomen from last month shows Left kidney is atrophic and is likely dysfunctional right renal artery has extensive calcification at origin (this was a non contrast study). Likely has stenosis, possibly hemodynamically significant looking at anatomy on CT, he has extensive calcification all over aorta and most of renal artery. Echo is not too bad I suspect he may have hemodynamically significant renal A stenosis thats contributing to CHF episodes d/w Dr Barrientos. If plan is for angiogram this hospitalization, might be worthwhile to get a renal angiogram same time. not sure if stenting is possible with extensive calcification. may need vascular surgery evaluation.
[2018-05-10] MEDS: Acetaminophen 325 MG Tablet 650 MG PO (19:49)
[2018-05-10] MEDS: Morphine 2 MG/ML Syringe 1 MG IV (21:03)
[2018-05-10] MEDS: Tamsulosin HCl 0.4 MG Capsule PO (21:07)
[2018-05-10] MEDS: Pramipexole Di-HCl 0.5 MG Tablet PO (21:08)
[2018-05-10] MEDS: Atorvastatin Calcium 80 MG Tablet PO (21:08)
[2018-05-10] MEDS: guaiFENesin 600 MG Tablet PO (21:09)
[2018-05-10] MEDS: Carvedilol 6.25 MG Tablet PO (21:11)
[2018-05-10] MEDS: Albuterol 2.5 MG/3 ML VIAL.NEB. INHALATION (21:26)
[2018-05-11] VITALS (40 sets, daily range): BP systolic 118–183; BP diastolic 40–103; PULSE 63–90; RESP 18–29; TEMP 36–37.1; O2SAT 94–98
--- NOTE | 2018-05-11 00:01 | US_ITS ---
STUDY: PROSTATE ULTRASOUND REASON FOR EXAM: Male, 67 years old. BPH RADIATION DOSAGE (If Supplied By Facility): CTDIvol = ( ) mGy, DLP = ( ) mGycm. Individualized dose optimization techniques were used for this CT.? TECHNIQUE: Sonographic evaluation of the bladder and prostate COMPARISON: CT scan from 04/10/2018 FINDINGS: Bladder is collapsed around a Charles catheter. Prostate measures 2.96 x 2.28 x 2.66 cm for a volume of 9.40 mL. No sonographic evidence of prostate lesion or hyperemia. Seminal vesicles not visualized. US/Prostate IMPRESSION: Unremarkable ultrasound of the prostate Electronically Signed: Pradeep Marquez MD at 10:57 EDT , Service support ,
[2018-05-11] MEDS: Ipratropium/Albuterol Sulfate 3 ML AMPUL.NEB INHALATION ×7 (00:55→23:33)
[2018-05-11] MEDS: LORazepam 1 MG Tablet PO (01:13)
[2018-05-11] MEDS: 0.9% NaCl Peripheral Flush Adult/Peds IV ×5 (04:02→16:49)
[2018-05-11 04:17] LABS: Hematocrit 32.2 % (40-54); Hemoglobin 9.7 g/dl (13.0-16.5); Mean Corp Hgb Conc 30.1 g/gl (32-36); Mean Corpuscular Hgb 29.9 pg (27.0-32.0); Mean Corpuscular Volume 99.4 fL (80-94); Mean Platelet Vol. 9.7 fl (6.2-12.0); Platelet Count 267 K/mm3 (150-450); RBC Distribution Width CV 18.1 % (11.6-14.6); RBC Distribution Width SD 63.5 fl (35.1-43.9); Red Blood Count 3.24 M/mm3 (4.6-6.2); White Blood Count 12.1 K/mm3 (4.4-11.0)
[2018-05-11 04:21] LABS: Scan Indicated on CBC? Y/N NO
[2018-05-11 04:25] LABS: Anion Gap 8 (5-15); BUN 59 mg/dL (7-18); BUN/Creat Ratio 31.9 RATIO (10-20); Calcium,Total 8.7 mg/dL (8.5-10.1); Chloride 106 mmol/L (98-107); Creatinine, Serum 1.85 mg/dL (0.70-1.30); EST Glomerular Filtration Rate 39 mL/min (>60); Est Glom Filt Rate - Afr Amer 47 mL/min (>60); Estimated Creatinine Clearance 36.72 ml/min; Glucose 108 mg/dL (74-106); Potassium 4.4 mmol/L (3.5-5.1); Sodium Level 140 mmol/L (136-145)
[2018-05-11] MEDS: hydrALAZINE 50 MG Tablet PO ×3 (05:32→21:59)
[2018-05-11] MEDS: Heparin Injection (Vial) 5,000 UNIT/ML VIAL 5000 UNIT SC ×3 (05:32→22:00)
--- NOTE | 2018-05-11 06:31 | PN_ITS ---
Subjective: Patient did well overnight. Patient did not require any further BiPAP rescue and has been on 3 L most of the evening. Patient reports subjective improvement in overall condition. Patient has had good diuresis. No bleeding complications have been reported. Patient denies any pain this morning. Patient did have pain with his Charles, but this is improved after readjustment by nursing staff. General: Alert, Oriented x3, Cooperative, No apparent distress, - - Appears older than stated age. Speaking in full sentences. Obese. HEENT: Atraumatic, PERRLA, EOMI, Normocephalic, - - Slight scleral injection without icterus. Oral: Moist Mucosa, No Gingival or Mucosal Lesions/ Ulcerations Neck: Supple, No JVD, No Nodes, Trachea Midline Lungs: No rhonchi, No rales, Diminished, Wheezes, - - Symmetric expansion. No dullness to percussion. Cardiovascular: Regular rate, Regular Rhythm, Normal S1, Normal S2, Murmur, No rub noted, No Gallop Abdomen: Bowel Sounds Present, Soft, Non Tender, Non-Distended Extremities: No clubbing, No cyanosis, Edema - Improved Skin: - - Slightly improved erythema compared to previous. Musculoskeletal: No Tenderness to Palpation of Joints or Extremities, No Muscle Wasting Lymphatic: No Cervical, Supraclavicular, or Inguinal Adenopathy Neurological: Cranial nerves II-XII grossly intact, Neuro grossly intact, Motor Exam 5/5 strength throughout Psych/Mental Status: Alert and oriented to time, place, person, mood and affect Vital Signs Temp Pulse Resp BP Pulse Ox 36.6 C 77 29 H 181/60 H 94 05/11/18 04:00 05/11/18 06:00 05/11/18 06:00 05/11/18 06:00 05/11/18 06:00 Oxygen Flow Rate (L/min) 3 Oxygen Delivery Method Nasal Cannula Weight: 88.7 kg Body Mass Index (BMI) 30.3 Intake and Output for Last 24 Hours 05/09/18 05/10/18 05/11/18 23:59 23:59 23:59 Intake Total 895 / 895 90 / 90 Output Total 1750 / 1750 450 / 450 Balance -855 / -855 -360 / -360 Labs (Last 48 Hours) 05/10/18 05/10/18 05/10/18 12:50 12:55 12:55 WBC RBC Hgb Hct MCV MCH MCHC RDW RDW Differential Plt Count MPV Sodium 136 Potassium 5.1 Chloride 102 Carbon Dioxide 25.0 Anion Gap 9 BUN 62 H Creatinine 2.26 H Estim Creat Clear Calc 30.06 Est GFR (MDRD) Af Amer 38 L Est GFR (MDRD) Non-Af 31 L BUN/Creatinine Ratio 27.4 H Glucose 136 H Calcium 8.5 Troponin I < 0.015 Urine Color Urine Clarity Urine pH Ur Specific [place] Urine Protein Urine Glucose (UA) Urine Ketones Urine Occult Blood Urine Nitrite Urine Bilirubin Urine Urobilinogen Ur Leukocyte Esterase Urine RBC Urine WBC Ur Squamous Epith Cells Urine Bacteria Urine Mucus MRSA (PCR) POSITIVE H 05/10/18 05/10/18 05/11/18 14:55 15:45 04:00 WBC 12.1 H RBC 3.24 L Hgb 9.7 L Hct 32.2 L MCV 99.4 H MCH 29.9 MCHC 30.1 L RDW 18.1 H RDW Differential 63.5 H Plt Count 267 MPV 9.7 Sodium Potassium Chloride Carbon Dioxide Anion Gap BUN Creatinine Estim Creat Clear Calc Est GFR (MDRD) Af Amer Est GFR (MDRD) Non-Af BUN/Creatinine Ratio Glucose Calcium Troponin I < 0.015 Urine Color Yellow Urine Clarity Clear Urine pH 6.5 Ur Specific [place] 1.010 Urine Protein 15 H Urine Glucose (UA) Normal Urine Ketones Negative Urine Occult Blood Negative Urine Nitrite Negative Urine Bilirubin Negative Urine Urobilinogen Normal Ur Leukocyte Esterase 25 H Urine RBC 0-5 SEEN Urine WBC 0-5 SEEN Ur Squamous Epith Cells 0 SEEN Urine Bacteria 0 SEEN Urine Mucus 0 SEEN MRSA (PCR) 05/11/18 04:00 WBC RBC Hgb Hct MCV MCH MCHC RDW RDW Differential Plt Count MPV Sodium 140 Potassium 4.4 Chloride 106 Carbon Dioxide 26.0 Anion Gap 8 BUN 59 H Creatinine 1.85 H Estim Creat Clear Calc 36.72 Est GFR (MDRD) Af Amer 47 L Est GFR (MDRD) Non-Af 39 L BUN/Creatinine Ratio 31.9 H Glucose 108 H Calcium 8.7 Troponin I Urine Color Urine Clarity Urine pH Ur Specific [place] Urine Protein Urine Glucose (UA) Urine Ketones Urine Occult Blood Urine Nitrite Urine Bilirubin Urine Urobilinogen Ur Leukocyte Esterase Urine RBC Urine WBC Ur Squamous Epith Cells Urine Bacteria Urine Mucus MRSA (PCR) Clinical Impression(s) from Imaging Studies Chest X-Ray 05/10/18 09:51 IMPRESSION: Interstitial edema with small bilateral pleural effusions. No interval change since the previous study. Electronically Signed: Pradeep Marquez MD at 10:08 EDT , Service support , Medical Necessity - Tobacco Use Smoking Status: Light Smoker (<10/day) Assessment/Plan All Active Problems DAI (acute kidney injury) (Acute) Pneumonia (Acute) UTI (urinary tract infection) (Resolved) Sepsis (Resolved) Acute respiratory failure with hypoxia (Acute) Diastolic CHF (Acute) Respiratory failure with hypoxia (Acute) RECOMMENDATIONS 1. One-time dose of labetalol for hypertension, continue baseline medications 2. Encourage incentive spirometer 3. Increase activity as tolerated, PT/OT 4. Continue aerosols 5. Okay to use BiPAP overnight while sleeping empirically 6. Obtain records from Dr. Quesada's office in [facility] 7. Ambulatory pulse ox prior to discharge 8. Okay to leave the intensive care unit from my perspective IMPRESSIONS 1. Possible sepsis secondary to suspected complicated UTI Patient with significant leukocytosis on presentation. Patient is not reporting any fever at this time. Urinalysis was not consistent with infection. Patient's leukocytosis is significantly improved today compared to previous. No fevers have been noted overnight. Will await cultures, but clinically, this is most consistent with a diagnosis of sepsis. 2. Acute renal failure Significant worsening compared to previous on presentation. Renal function appears to be improving with diuresis and placement of Charles catheter. Renal has been consulted. Patient does have atrophic left kidney and CT the abdomen/pelvis showed severe renal stenosis. Some concern for postobstructive uropathy secondary to BPH. Urology is consulted. No indication for renal replacement therapy at this time. 3. Acute on chronic diastolic CHF Patient with significant hypoxia on presentation that was originally requiring BiPAP therapy. Patient did respond well to Lasix therapy on presentation. Unclear if significant worsening since discharge is secondary to increased salt load versus underlying rhythm disturbance at home. Patient is currently on nasal cannula oxygen. Would recommend using BiPAP therapy overnight as patient is at high risk for obstructive sleep apnea. Patient would also benefit from an outpatient polysomnogram. Previous echocardiogram did show diastolic dysfunction. Primary carpenter foreman Dr. Yu [place], [place]. 4. Presumed COPD Records from Dr. Quesada are not available at this time. Patient has not had pulmonary function test, but previous CT did show extensive emphysematous changes. Bronchodilators would be appropriate. Patient does not appear to be in acute exacerbation at this time, therefore steroids are not indicated. 5. Tobacco abuse Encouraged ongoing smoking cessation. Patient has recently relapsed and started smoking again, despite feeling short of breath with exertion. He denies need for nicotine replacement therapy at this time. Thank for the opportunity to participate in this patient's care, please do not hesitate contact us with any further questions or concerns. This note was generated with [employer] dictation software. It may contain incorrect words, spelling, and punctuation that were not noted in checking the note before signing. Code Visit Inpatient E&M: 90084 Subs Hosp L3
--- NOTE | 2018-05-11 06:55 | NURSING ---
This RN reviewed and agrees with Marquis Wang RN charting
[2018-05-11] MEDS: Aspirin 81 MG TAB.CHEW PO (07:47)
[2018-05-11] MEDS: Ferrous Sulfate 325 MG Tablet PO ×2 (07:47→16:50)
--- NOTE | 2018-05-11 08:43 | STE_ITS ---
Reason For Study: CHF Stress Results Protocol: Dobutamine Stress Echocardiogram Maximum Predicted HR: 154 bpm Target HR: 131 bpm% Maximum Predicted HR: 85 % DurationHeart Rate Stage (mm:ss) (bpm) BPDos eComment BASELINE 81 154/75 DSE- 10 MCG 3:33 92 174/8110.00 DSE- 20 MCG 3:23 10 3 164/7520.00 DSE- 30 MCG 3:52 13 1 182/7430.00ATROPINE 0.25 MG IVP GIVEN @ 1415 RECOVERY 93 166/70 Stress Duration: 10:48 mm:ss Maximum Stress HR: 131 bpm Baseline Echocardiogram Findings The estimated ejection fraction is 50 %. Mild Stress Echo Wall motion Data Resting WMIntermediate WMStress WM Resting Wall Motion Wall Motion Stress No regional wall motion No regional wall motion abnormalities noted. abnormalities noted. EKG Data The baseline ECG displays normal sinus rhythm. The patient was titrated from 10 mcg to a maximun of 30 mcg of dobutamine during the stress. The maximum heart rate attained was 131 beats per minute. This was 85% of maximum predicted heart rate. At peak infusion, upsloping ST changes only were noted, which did not meet the criteria for ischemia. No clinical angina was noted. Interpretation Summary The estimated ejection fraction is 50 %. The patient was titrated from 10 mcg to a maximun of 30 mcg of dobutamine during the stress. Normal, adequate, dobutamine echocardiogram. Negative for ischemia by EKG and echocardiographic criteria. No anginal symptoms noted. Rare PVC noted. Appropriate blood pressure response to dobutamine. Final LVEF is 60%. No complications. Ordering Physician: Chepe Barrientos Referring Physician: Nickolas Mccollum Performed By: Ivelisse Pritchett, RDCS, RVT
[2018-05-11 08:50] LABS: Allen Test POS; Base Excess -1 mmol/L (-2 to +2); Bicarbonate 24.3 mmol/L (22-26); Blood Gas Specimen Type ART; EPAP 12; FI02 35; IPAP 16; PO2 81 mmHG (75-100); RR 12; SITE R Radial; SO2 95 % (95-99); Time Given 945; Total Carbon Dioxide 26 mmol/L; pCO2 42.2 mmHg (35-45); pH 7.37 (7.35-7.45)
[2018-05-11 08:50] LABS: Allen Test POS; Base Excess -2 mmol/L (-2 to +2); Bicarbonate 22.2 mmol/L (22-26); Blood Gas Specimen Type ART; O2 Delivery Device Nasal Can; PO2 51 mmHG (75-100); SITE L Radial; SO2 87 % (95-99); Time Given 1320; Total Carbon Dioxide 23 mmol/L; pCO2 33.3 mmHg (35-45); pH 7.43 (7.35-7.45)
--- NOTE | 2018-05-11 09:32 | PCM.PN.CARD ---
Subjectve: Patient reports much improved breathing. Able to lay down flat without dyspnea. Lower extremity edema almost completely resolved. Telemetry showed no significant ventricular arrhythmias. Objective: Vital Signs Temp Pulse Resp BP Pulse Ox 97.5 F L 71 18 183/61 H 94 05/11/18 08:00 05/11/18 09:00 05/11/18 09:00 05/11/18 09:00 05/11/18 09:00 Oxygen Flow Rate (L/min) 2 Oxygen Delivery Method Nasal Cannula Weight: 195 lb 8.8 oz Body Mass Index (BMI) 30.3 Intake and Output for Last 24 Hours 05/09/18 05/10/18 05/11/18 23:59 23:59 23:59 Intake Total 895 / 895 90 / 90 Output Total 1750 / 1750 450 / 450 Balance -855 / -855 -360 / -360 General: Awake, Alert, Oriented x 3 HEENT: PERRL, EOMI, Sclera Non Icteric Neck: Supple, Good ROM, No Lymph Node Enlargement Lungs: Rales - Viral Bases Cardiovascular: Regular Rhythm, Normal S1, Normal S2, No Rubs, No Gallops Murmur Murmur: Grade 2/6, Holosystolic Vascular: No Carotid Bruits, Normal Femoral Pulses, Normal Radial Pulses, Normal Dorsalis Pedal Pulse, Normal Posterior Tibial Pulses Abdomen: Bowel Sounds Present, Soft, Non Tender, No HSM, No Organomegaly Extremities: No Cyanosis, No Clubbing, No edema Neurological: No Focal Motor or Sensory Deficit 05/10/18 12:55: Sodium 136, Potassium 5.1, Chloride 102, Carbon Dioxide 25.0, Anion Gap 9, BUN 62 H, Creatinine 2.26 H, Est GFR (MDRD) Af Amer 38 L, Est GFR (MDRD) Non-Af 31 L, BUN/Creatinine Ratio 27.4 H, Glucose 136 H, Calcium 8.5 05/10/18 12:55: Troponin I < 0.015 05/10/18 13:16: pH 7.43, Bicarbonate Actual 22.2, POC Total CO2 23, Base Excess -2, O2 Saturation 87 L, ABG pCO2 33.3 L, ABG pO2 51 L, Clay Test POS 05/10/18 14:55: Urine Color Yellow, Urine Clarity Clear, Urine pH 6.5, Ur Specific [place] 1.010, Urine Protein 15 H, Urine Glucose (UA) Normal, Urine Ketones Negative, Urine Occult Blood Negative, Urine Nitrite Negative, Urine Bilirubin Negative, Urine Urobilinogen Normal, Ur Leukocyte Esterase 25 H, Urine RBC 0-5 SEEN, Urine WBC 0-5 SEEN 05/10/18 15:45: Troponin I < 0.015 05/11/18 04:00: WBC 12.1 H, RBC 3.24 L, Hgb 9.7 L, Hct 32.2 L, MCV 99.4 H, MCH 29.9, MCHC 30.1 L, RDW 18.1 H, RDW Differential 63.5 H, Plt Count 267, MPV 9.7 05/11/18 04:00: Sodium 140, Potassium 4.4, Chloride 106, Carbon Dioxide 26.0, Anion Gap 8, BUN 59 H, Creatinine 1.85 H, Est GFR (MDRD) Af Amer 47 L, Est GFR (MDRD) Non-Af 39 L, BUN/Creatinine Ratio 31.9 H, Glucose 108 H, Calcium 8.7 Rhythm: EKG: ECHO: Stress Test: Cardiac Cath: PCI: CT Surgery: Holter monitor: EPS: PPM: CXR: Chest CT Scan: Medical Necessity - Tobacco Use Smoking Status: Light Smoker (<10/day) Assessment/Plan 1. Congestive heart failure: The patient had recently been admitted for pneumonia, and returns now with congestive heart failure including hypoxia, dyspnea, orthopnea, PND, and lower extremity edema. His echocardiogram done on 04/08/18 showed intact LV function with stage II diastolic dysfunction and at least mild pulmonary hypertension with an RVSP of 42 mmHg. At that he is able to lay down flat without dyspnea, recommend discontinuation of IV Lasix and switching him to Bumex 2 mg p.o. twice daily Imdur 60 mg a day, hydralazine 25 mg p.o. twice daily for afterload reduction, and increasing Coreg to 12.5 mg p.o. twice daily once he is reached his dry weight. Would recommend discontinuation of spironolactone given his hyperkalemia and chronic renal insufficiency. Patient is ruled out for myocardial infarction with troponins negative ?3, and would recommend a dobutamine echocardiogram to assess for possible ischemia. He has had a recent PCI in May 2017, and has a history of 13 stents in the past. If this is grossly abnormal he may require repeat coronary angiogram and graft angiography. Patient is a history of 13 stents, the most recent of which was in May 2017 at an outside facility. 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 2. Hyperlipidemia: Recommend obtaining a fasting lipid profile. Continue Crestor. His LDL should be less than 70. 3. Tobacco cessation: I had a long and thorough discussion with the patient regarding tobacco use and have strongly recommended discontinuation of all tobacco products. 4. Thank you very much for the opportunity to participate in the cardiac care of your patient.
[2018-05-11] MEDS: Famotidine 20 MG Tablet PO (09:39)
[2018-05-11] MEDS: predniSONE 20 MG Tablet 40 MG PO (09:39)
[2018-05-11] MEDS: Clopidogrel Bisulfate 75 MG Tablet PO (09:40)
[2018-05-11] MEDS: amLODIPine 10 MG Tablet PO (09:40)
[2018-05-11] MEDS: Tamsulosin HCl 0.4 MG Capsule PO ×2 (09:40→21:59)
[2018-05-11] MEDS: Finasteride 5 MG Tablet PO (09:40)
--- NOTE | 2018-05-11 09:40 | PN.CARD_ITS ---
Subjectve: Patient reports much improved breathing. Able to lay down flat without dyspnea. Lower extremity edema almost completely resolved. Telemetry showed no significant ventricular arrhythmias. Objective: Vital Signs Temp Pulse Resp BP Pulse Ox 97.5 F L 71 18 183/61 H 94 05/11/18 08:00 05/11/18 09:00 05/11/18 09:00 05/11/18 09:00 05/11/18 09:00 Oxygen Flow Rate (L/min) 2 Oxygen Delivery Method Nasal Cannula Weight: 195 lb 8.8 oz Body Mass Index (BMI) 30.3 Intake and Output for Last 24 Hours 05/09/18 05/10/18 05/11/18 23:59 23:59 23:59 Intake Total 895 / 895 90 / 90 Output Total 1750 / 1750 450 / 450 Balance -855 / -855 -360 / -360 General: Awake, Alert, Oriented x 3 HEENT: PERRL, EOMI, Sclera Non Icteric Neck: Supple, Good ROM, No Lymph Node Enlargement Lungs: Rales - Viral Bases Cardiovascular: Regular Rhythm, Normal S1, Normal S2, No Rubs, No Gallops Murmur Murmur: Grade 2/6, Holosystolic Vascular: No Carotid Bruits, Normal Femoral Pulses, Normal Radial Pulses, Normal Dorsalis Pedal Pulse, Normal Posterior Tibial Pulses Abdomen: Bowel Sounds Present, Soft, Non Tender, No HSM, No Organomegaly Extremities: No Cyanosis, No Clubbing, No edema Neurological: No Focal Motor or Sensory Deficit 05/10/18 12:55: Sodium 136, Potassium 5.1, Chloride 102, Carbon Dioxide 25.0, Anion Gap 9, BUN 62 H, Creatinine 2.26 H, Est GFR (MDRD) Af Amer 38 L, Est GFR ( MDRD) Non-Af 31 L, BUN/Creatinine Ratio 27.4 H, Glucose 136 H, Calcium 8.5 05/10/18 12:55: Troponin I < 0.015 05/10/18 13:16: pH 7.43, Bicarbonate Actual 22.2, POC Total CO2 23, Base Excess -2, O2 Saturation 87 L, ABG pCO2 33.3 L, ABG pO2 51 L, Clay Test POS 05/10/18 14:55: Urine Color Yellow, Urine Clarity Clear, Urine pH 6.5, Ur Specific [place] 1.010, Urine Protein 15 H, Urine Glucose (UA) Normal, Urine Ketones Negative, Urine Occult Blood Negative, Urine Nitrite Negative, Urine Bilirubin Negative, Urine Urobilinogen Normal, Ur Leukocyte Esterase 25 H, Urine RBC 0-5 SEEN, Urine WBC 0-5 SEEN 05/10/18 15:45: Troponin I < 0.015 05/11/18 04:00: WBC 12.1 H, RBC 3.24 L, Hgb 9.7 L, Hct 32.2 L, MCV 99.4 H, MCH 29.9, MCHC 30.1 L, RDW 18.1 H, RDW Differential 63.5 H, Plt Count 267, MPV 9.7 05/11/18 04:00: Sodium 140, Potassium 4.4, Chloride 106, Carbon Dioxide 26.0, Anion Gap 8, BUN 59 H, Creatinine 1.85 H, Est GFR (MDRD) Af Amer 47 L, Est GFR ( MDRD) Non-Af 39 L, BUN/Creatinine Ratio 31.9 H, Glucose 108 H, Calcium 8.7 Rhythm: EKG: ECHO: Stress Test: Cardiac Cath: PCI: CT Surgery: Holter monitor: EPS: PPM: CXR: Chest CT Scan: Medical Necessity - Tobacco Use Smoking Status: Light Smoker (<10/day) Assessment/Plan 1. Congestive heart failure: The patient had recently been admitted for pneumonia, and returns now with congestive heart failure including hypoxia, dyspnea, orthopnea, PND, and lower extremity edema. His echocardiogram done on 04/08/18 showed intact LV function with stage II diastolic dysfunction and at least mild pulmonary hypertension with an RVSP of 42 mmHg. At that he is able to lay down flat without dyspnea, recommend discontinuation of IV Lasix and switching him to Bumex 2 mg p.o. twice daily Imdur 60 mg a day, hydralazine 25 mg p.o. twice daily for afterload reduction, and increasing Coreg to 12.5 mg p.o. twice daily once he is reached his dry weight. Would recommend discontinuation of spironolactone given his hyperkalemia and chronic renal insufficiency. Patient is ruled out for myocardial infarction with troponins negative ?3, and would recommend a dobutamine echocardiogram to assess for possible ischemia. He has had a recent PCI in May 2017, and has a history of 13 stents in the past. If this is grossly abnormal he may require repeat coronary angiogram and graft angiography. Patient is a history of 13 stents, the most recent of which was in May 2017 at an outside facility. 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 2. Hyperlipidemia: Recommend obtaining a fasting lipid profile. Continue Crestor. His LDL should be less than 70. 3. Tobacco cessation: I had a long and thorough discussion with the patient regarding tobacco use and have strongly recommended discontinuation of all tobacco products. 4. Thank you very much for the opportunity to participate in the cardiac care of your patient.
[2018-05-11] MEDS: Sertraline 50 MG Tablet PO (09:41)
[2018-05-11] MEDS: guaiFENesin 600 MG Tablet PO ×2 (09:41→21:59)
[2018-05-11] MEDS: Bumetanide 2 MG Tablet PO ×2 (09:47→21:58)
--- NOTE | 2018-05-11 10:17 | PCM.PN.HOSP ---
Patient Problems: Active and Suspected Problems DAI (acute kidney injury) (Acute) Subjective: Patient was seen and examined. Overnight, BP was uncontrolled. Patient complains of wheezes. Denies chest pain no fever or chills or dizziness or palpitations. Has remained on 2 L of oxygen throughout the night. Appreciate all consults - Cardiology, nephrology, critical care Objective: Physical Exam General: Alert, Oriented x3, Cooperative, - - Moderate respiratory distress, on BiPAP mask HEENT: Atraumatic, PERRLA, EOMI, Normocephalic Oral: Dry Mucosa Neck: Supple Lungs: Clear to auscultation, Normal air movement Cardiovascular: Regular rate, Regular Rhythm, Normal S1, Normal S2, No murmurs Abdomen: Bowel Sounds Present, Soft, Non Tender, Non-Distended, No Hepato-splenomegaly Extremities: Edema - +1 bilateral pedal edema Skin: No rashes Musculoskeletal: No Tenderness to Palpation of Joints or Extremities Lymphatic: No Cervical, Supraclavicular, or Inguinal Adenopathy Neurological: Cranial nerves II-XII grossly intact, Neuro grossly intact Psych/Mental Status: Normal Affect, Appropriate Vitals/I&O's: Vital Signs Temp Pulse Resp BP Pulse Ox 97.5 F L 71 18 183/61 H 94 05/11/18 08:00 05/11/18 09:00 05/11/18 09:00 05/11/18 09:00 05/11/18 09:00 Oxygen Flow Rate (L/min) 2 Oxygen Delivery Method Nasal Cannula Weight: 88.7 kg Body Mass Index (BMI) 30.3 Intake and Output for Last 24 Hours 05/09/18 05/10/18 05/11/18 23:59 23:59 23:59 Intake Total 895 / 895 90 / 90 Output Total 1750 / 1750 450 / 450 Balance -855 / -855 -360 / -360 Laboratory Results 05/10/18 12:50: MRSA (PCR) POSITIVE H 05/10/18 12:55: Sodium 136, Potassium 5.1, Chloride 102, Carbon Dioxide 25.0, Anion Gap 9, BUN 62 H, Creatinine 2.26 H, Estim Creat Clear Calc 30.06, Est GFR (MDRD) Af Amer 38 L, Est GFR (MDRD) Non-Af 31 L, BUN/Creatinine Ratio 27.4 H, Glucose 136 H, Calcium 8.5 05/10/18 12:55: Troponin I < 0.015 05/10/18 13:16: Specimen Type ART, Sample Site L Radial, pH 7.43, Bicarbonate Actual 22.2, POC Total CO2 23, Base Excess -2, O2 Saturation 87 L, ABG pCO2 33.3 L, ABG pO2 51 L, Clay Test POS, O2 Delivery Device Nasal Can, Liter Flow 2.0, Blood Gas Notified Whom KODY MONTENEGRO, Blood Gas Notified Time 1320 05/10/18 14:55: Urine Color Yellow, Urine Clarity Clear, Urine pH 6.5, Ur Specific [place] 1.010, Urine Protein 15 H, Urine Glucose (UA) Normal, Urine Ketones Negative, Urine Occult Blood Negative, Urine Nitrite Negative, Urine Bilirubin Negative, Urine Urobilinogen Normal, Ur Leukocyte Esterase 25 H, Urine RBC 0-5 SEEN, Urine WBC 0-5 SEEN, Ur Squamous Epith Cells 0 SEEN, Urine Bacteria 0 SEEN, Urine Mucus 0 SEEN 05/10/18 15:45: Troponin I < 0.015 05/11/18 04:00: WBC 12.1 H, RBC 3.24 L, Hgb 9.7 L, Hct 32.2 L, MCV 99.4 H, MCH 29.9, MCHC 30.1 L, RDW 18.1 H, RDW Differential 63.5 H, Plt Count 267, MPV 9.7 05/11/18 04:00: Sodium 140, Potassium 4.4, Chloride 106, Carbon Dioxide 26.0, Anion Gap 8, BUN 59 H, Creatinine 1.85 H, Estim Creat Clear Calc 36.72, Est GFR (MDRD) Af Amer 47 L, Est GFR (MDRD) Non-Af 39 L, BUN/Creatinine Ratio 31.9 H, Glucose 108 H, Calcium 8.7 Current Medications Acetaminophen (Tylenol) 650 mg PO Q6H PRN PRN PRN Reason: Mild Pain (1-3)/Temp > 100.7 F Last Admin: 05/10/18 19:49 Dose: 650 mg Albuterol Sulfate (Ventolin Aerosols) 2.5 mg INHALATION Q4H PRN PRN Reason: SHORTNESS OF BREATH Last Admin: 05/10/18 21:26 Dose: 2.5 mg Albuterol/Ipratropium (Duoneb) 3 ml INHALATION Q4H.RT [facility] Last Admin: 05/11/18 07:02 Dose: 3 ml Amlodipine Besylate (Norvasc) 10 mg PO DAILY [facility] Last Admin: 05/11/18 09:40 Dose: 10 mg Aspirin (Aspirin, Baby) 81 mg PO DAILY@0800 [facility] Last Admin: 05/11/18 07:47 Dose: 81 mg Atorvastatin Calcium (Lipitor) 80 mg PO QHS [facility] Last Admin: 05/10/18 21:08 Dose: 80 mg Bumetanide (Bumex) 2 mg PO BID [facility] Last Admin: 05/11/18 09:47 Dose: 2 mg Carvedilol (Coreg) 12.5 mg PO BID [facility] Clopidogrel Bisulfate (Plavix) 75 mg PO DAILY [facility] Last Admin: 05/11/18 09:40 Dose: 75 mg Famotidine (Pepcid) 20 mg PO DAILY [facility] Last Admin: 05/11/18 09:39 Dose: 20 mg [facility]ous [facility]) [facility] Last Admin: 05/11/18 07:47 Dose: 325 mg Finasteride (Proscar) 5 mg PO DAILY [facility] Last Admin: 05/11/18 09:40 Dose: 5 mg Guaifenesin (Mucinex) 600 mg PO BID [facility] Last Admin: 05/11/18 09:41 Dose: 600 mg Heparin Sodium (Porcine) (Heparin Na) 5,000 unit SC Q8 [facility] Last Admin: 05/11/18 05:32 Dose: 5,000 u Hydralazine HCl (Apresoline) 50 mg PO TID [facility] Last Admin: 05/11/18 05:32 Dose: 50 mg Isosorbide Mononitrate (Imdur) 30 mg PO DAILY [facility] Magnesium Hydroxide (Milk Of Magnesia) 30 ml PO DAILY PRN PRN PRN Reason: Constipation Morphine Sulfate () 1 mg IV Q4H PRN PRN PRN Reason: MOD-SEVERE PAIN (4-10/10) Last Admin: 05/10/18 21:03 Dose: 1 mg Ondansetron HCl (Zofran) 4 mg IV Q8H PRN PRN PRN Reason: Nausea Pramipexole Dihydrochloride (Mirapex) 0.5 mg PO QHS [facility] Last Admin: 05/10/18 21:08 Dose: 0.5 mg Prednisone () 40 mg PO DAILY@0800 [facility] Last Admin: 05/11/18 09:39 Dose: 40 mg Sertraline HCl (Zoloft) 50 mg PO DAILY [facility] Last Admin: 05/11/18 09:41 Dose: 50 mg Sodium Chloride () 5 - 30 ml IV UD PRN PRN Reason: SALINE FLUSH Last Admin: 05/11/18 09:43 Dose: 10 ml Tamsulosin HCl (Flomax) 0.4 mg PO BID [facility] Last Admin: 05/11/18 09:40 Dose: 0.4 mg Medical Necessity - Tobacco Use Smoking Status: Light Smoker (<10/day) Assessment/Plan All Active Problems DAI (acute kidney injury) (Acute) Pneumonia (Acute) UTI (urinary tract infection) (Resolved) Sepsis (Resolved) Acute respiratory failure with hypoxia (Acute) Diastolic CHF (Acute) Respiratory failure with hypoxia (Acute) 67 year old M with past medical history of chronic diastolic CHF, pulmonary hypertension, CAD status post CABG, BPH status post chronic Charles catheter with recent removal of Charles catheter, less than a week ago seen with shortness of breath, orthopnea and PND 1. Acute on chronic hypoxic respiratory failure secondary to acute on chronic diastolic CHF, improved, on 2L oxygen, not on oxygen at home. 2. Accelerated hypertension,/hypertensive emergency, POA, BP in the EMS was 200/84, patient was started on nitro drip yesterday, BP was high, Has been off nitro drip, BP has remained high, given labetalol overnight, will increase amlodipine to 10mg po daily, Coreg increased to 12.5mg po bid, continue on hydralazine 50mg tid 2. Acute on chronic diastolic CHF, likely secondary to accelerated hypertension, dietary indiscretion patient's reported that he had some pizza 2 days ago Will continue with Lasix 80 mg twice daily, strict I's and O's, daily weights, low-salt diet. Appreciate cardiology consult, request from [facility] are pending. 3. DAI on CKD stage III, likely cardiorenal, present right renal artery stenosis, improving, creatinine is 1.85, nephrology following, labs in a.m. 4. Hyperkalemia secondary to likely DAI, use of oral potassium, resolved 5. Leukocytosis, likely reactive, improved, from 27.5 to 12.1, patient is asymptomatic, no signs of infection, urine cultures are pending 6. CAD status post CABG, on Plavix, statin 7. Hypertension, controlled, continue home medication 8. Hyperlipidemia, on statin 9. BPH status post Charles catheter, urology following, ultrasound of prostate is normal 10. DVT prophylaxis-heparin subcu 11. GI prophylaxis with famotidine 12. Code status: Full Code Visit Inpatient E&M: 22686 Init Hosp L3
[2018-05-11] MEDS: Isosorbide Mononitrate 30 MG Tablet PO (11:17)
--- NOTE | 2018-05-11 11:41 | PCM.PN.REN ---
Patient Problems: Active and Suspected Problems DAI (acute kidney injury) (Acute) Subjective: no new complaints - Physical Exam General: Alert, Oriented x3, Cooperative HEENT: Atraumatic, PERRLA, EOMI, Normocephalic Neck: Supple, No JVD, Negative Carotid Bruits Lungs: Clear to auscultation, Normal air movement Cardiovascular: Regular rate, No murmurs Abdomen: Bowel Sounds Present, Soft, Non Tender Extremities: No edema, Capillary Refill Less than 3 Seconds Skin: No rashes, No breakdown Musculoskeletal: No Tenderness to Palpation of Joints or Extremities Neurological: Cranial nerves II-XII grossly intact Psych/Mental Status: Normal Affect, Appropriate Vital Signs Temp Pulse Resp BP Pulse Ox 97.2 F L 75 21 H 167/57 H 98 05/11/18 10:00 05/11/18 11:00 05/11/18 11:00 05/11/18 11:00 05/11/18 11:00 Oxygen Flow Rate (L/min) 2 Oxygen Delivery Method Nasal Cannula Weight: 88.7 kg Body Mass Index (BMI) 30.3 Intake and Output for Last 24 Hours 05/09/18 05/10/18 05/11/18 23:59 23:59 23:59 Intake Total 895 / 895 210 / 210 Output Total 1750 / 1750 950 / 950 Balance -855 / -855 -740 / -740 Laboratory Tests Past 24 Hrs 05/10/18 05/10/18 05/10/18 12:50 12:55 12:55 WBC RBC Hgb Hct MCV MCH MCHC RDW RDW Differential Plt Count MPV Specimen Type Sample Site pH Bicarbonate Actual POC Total CO2 Base Excess O2 Saturation ABG pCO2 ABG pO2 Clay Test O2 Delivery Device Liter Flow Blood Gas Notified Whom Blood Gas Notified Time Sodium 136 Potassium 5.1 Chloride 102 Carbon Dioxide 25.0 Anion Gap 9 BUN 62 H Creatinine 2.26 H Estim Creat Clear Calc 30.06 Est GFR (MDRD) Af Amer 38 L Est GFR (MDRD) Non-Af 31 L BUN/Creatinine Ratio 27.4 H Glucose 136 H Calcium 8.5 Troponin I < 0.015 Urine Color Urine Clarity Urine pH Ur Specific [place] Urine Protein Urine Glucose (UA) Urine Ketones Urine Occult Blood Urine Nitrite Urine Bilirubin Urine Urobilinogen Ur Leukocyte Esterase Urine RBC Urine WBC Ur Squamous Epith Cells Urine Bacteria Urine Mucus MRSA (PCR) POSITIVE H 05/10/18 05/10/18 05/10/18 13:16 14:55 15:45 WBC RBC Hgb Hct MCV MCH MCHC RDW RDW Differential Plt Count MPV Specimen Type ART Sample Site L Radial pH 7.43 Bicarbonate Actual 22.2 POC Total CO2 23 Base Excess -2 O2 Saturation 87 L ABG pCO2 33.3 L ABG pO2 51 L Clay Test POS O2 Delivery Device Nasal Can Liter Flow 2.0 Blood Gas Notified Whom [facility] Blood Gas Notified Time 1320 Sodium Potassium Chloride Carbon Dioxide Anion Gap BUN Creatinine Estim Creat Clear Calc Est GFR (MDRD) Af Amer Est GFR (MDRD) Non-Af BUN/Creatinine Ratio Glucose Calcium Troponin I < 0.015 Urine Color Yellow Urine Clarity Clear Urine pH 6.5 Ur Specific [place] 1.010 Urine Protein 15 H Urine Glucose (UA) Normal Urine Ketones Negative Urine Occult Blood Negative Urine Nitrite Negative Urine Bilirubin Negative Urine Urobilinogen Normal Ur Leukocyte Esterase 25 H Urine RBC 0-5 SEEN Urine WBC 0-5 SEEN Ur Squamous Epith Cells 0 SEEN Urine Bacteria 0 SEEN Urine Mucus 0 SEEN MRSA (PCR) 05/11/18 05/11/18 04:00 04:00 WBC 12.1 H RBC 3.24 L Hgb 9.7 L Hct 32.2 L MCV 99.4 H MCH 29.9 MCHC 30.1 L RDW 18.1 H RDW Differential 63.5 H Plt Count 267 MPV 9.7 Specimen Type Sample Site pH Bicarbonate Actual POC Total CO2 Base Excess O2 Saturation ABG pCO2 ABG pO2 Clay Test O2 Delivery Device Liter Flow Blood Gas Notified Whom Blood Gas Notified Time Sodium 140 Potassium 4.4 Chloride 106 Carbon Dioxide 26.0 Anion Gap 8 BUN 59 H Creatinine 1.85 H Estim Creat Clear Calc 36.72 Est GFR (MDRD) Af Amer 47 L Est GFR (MDRD) Non-Af 39 L BUN/Creatinine Ratio 31.9 H Glucose 108 H Calcium 8.7 Troponin I Urine Color Urine Clarity Urine pH Ur Specific [place] Urine Protein Urine Glucose (UA) Urine Ketones Urine Occult Blood Urine Nitrite Urine Bilirubin Urine Urobilinogen Ur Leukocyte Esterase Urine RBC Urine WBC Ur Squamous Epith Cells Urine Bacteria Urine Mucus MRSA (PCR) Medical Necessity - Tobacco Use Smoking Status: Light Smoker (<10/day) Assessment/Plan All Active Problems DAI (acute kidney injury) (Acute) Pneumonia (Acute) UTI (urinary tract infection) (Resolved) Sepsis (Resolved) Acute respiratory failure with hypoxia (Acute) Diastolic CHF (Acute) Respiratory failure with hypoxia (Acute) DAI. Baseline creatinine at the time of dc from [facility] in february was 1.1. recently in mid 1s. UA looks benign. SPEP negative. DAI is likely cardiorenal Renal artery stenosis. significant history of smoking. coronary, PVD. has cardiac stents and from imaging studies looks like he has a aortobifemoral graft with possible mesentric stent. CT abdomen from last month shows Left kidney is atrophic and is likely dysfunctional right renal artery has extensive calcification at origin (this was a non contrast study). Likely has stenosis, possibly hemodynamically significant looking at anatomy on CT, he has extensive calcification all over aorta and most of renal artery. Echo is not too bad stress test today doubt he is a candidate for renal angioplasty as per Dr Barrientos as he has extensive calcifications
--- NOTE | 2018-05-11 12:17 | CASEMGMT ---
Addendum entered by Real Christopher 05/11/18 12:27: Pt and stated would prefer [facility] for any DME or O2 needs upon discharge if they are Provider for [employer] P[employer]. RAYMOND SPENCER confirmed via [employer] website they are in-network. Original Note: RAYMOND SPENCER NOTE: Spoke with pt and re: PT eval and recommendation for home health therapy. Pt is not home-bound and states it is not difficult for him to travel and go to appointments. Discussed out-pt PT and informed that Script could be obtained from [facility] so pt could go to Out-pt facility for PT of his choice. Both pt and decline any out-pt PT at this time and stated they do not even want a Script for such. stated, we're getting ready to move and there is just too much going on right now. stated that they have capabilities for pt to go to local gym if they feel the need, stating, We could even come to [place] to [facility] if we need to. Junior UMAÑAN RAYMOND SPENCER
--- NOTE | 2018-05-11 13:20 | NURSING ---
pt transported to stress lab for stress echo at this time
[2018-05-11] MEDS: Carvedilol 12.5 MG Tablet PO ×2 (14:50→21:58)
[2018-05-11 15:16] LABS: Pathologist Review Reviewed
[2018-05-11] MEDS: Pramipexole Di-HCl 0.5 MG Tablet PO (21:58)
[2018-05-11] MEDS: Atorvastatin Calcium 80 MG Tablet PO (22:00)
[2018-05-11] MEDS: Docusate Sodium 100 MG Capsule PO (22:02)
[2018-05-11] MEDS: Acetaminophen 325 MG Tablet 650 MG PO (22:58)
[2018-05-12] VITALS (34 sets, daily range): BP systolic 145–189; BP diastolic 40–71; PULSE 57–103; RESP 12–25; TEMP 36.5–37.2; O2SAT 92–99
--- NOTE | 2018-05-12 01:00 | CPS ---
Pt stated that he wanted to try sleeping without biPAP for tonight.
[2018-05-12] MEDS: Albuterol 2.5 MG/3 ML VIAL.NEB. INHALATION (01:30)
[2018-05-12] MEDS: 0.9% NaCl Peripheral Flush Adult/Peds IV ×4 (02:26→20:44)
[2018-05-12 05:31] LABS: Absolute Lymphocyte Count 1.41 X10^3/ul (0.83-4.51); Absolute Neutrophil Count 7.9 X10^3/uL (2.0-7.7); Basophil# 0.02 X10^3/uL; Basophil% 0.2 % (0-1); Eosinophil# 0.03 X10^3/uL; Eosinophils% 0.3 % (0-5); Hematocrit 31.9 % (40-54); Hemoglobin 9.4 g/dl (13.0-16.5); Lymphocyte # 1.41 X10^3/ul (4.0); Lymphocyte % 13.5 % (19-41); Mean Corp Hgb Conc 29.5 g/gl (32-36); Mean Corpuscular Hgb 29.6 pg (27.0-32.0); Mean Corpuscular Volume 100.3 fL (80-94); Mean Platelet Vol. 9.7 fl (6.2-12.0); Monocyte# 1.02 X10^3/uL; Monocyte% 9.8 % (0-10); Neutrophil # 7.87 X10^3/uL (2.7-7.7); Neutrophil % 75.6 % (47-70); Platelet Count 251 K/mm3 (150-450); RBC Distribution Width CV 18.2 % (11.6-14.6); RBC Distribution Width SD 62.6 fl (35.1-43.9); Red Blood Count 3.18 M/mm3 (4.6-6.2); White Blood Count 10.4 K/mm3 (4.4-11.0)
[2018-05-12] MEDS: Ipratropium/Albuterol Sulfate 3 ML AMPUL.NEB INHALATION ×5 (05:34→23:28)
[2018-05-12] MEDS: Heparin Injection (Vial) 5,000 UNIT/ML VIAL 5000 UNIT SC ×3 (05:36→21:20)
[2018-05-12] MEDS: hydrALAZINE 50 MG Tablet PO (05:36)
[2018-05-12 05:43] LABS: Anion Gap 5 (5-15); BUN 46 mg/dL (7-18); BUN/Creat Ratio 33.1 RATIO (10-20); Calcium,Total 8.4 mg/dL (8.5-10.1); Chloride 106 mmol/L (98-107); Creatinine, Serum 1.39 mg/dL (0.70-1.30); EST Glomerular Filtration Rate 54 mL/min (>60); Est Glom Filt Rate - Afr Amer 66 mL/min (>60); Estimated Creatinine Clearance 48.87 ml/min; Glucose 111 mg/dL (74-106); Magnesium 2.4 mg/dL (1.6-2.6); Phosphorus 4.2 mg/dL (2.5-4.9); Sodium Level 140 mmol/L (136-145)
[2018-05-12 06:10] LABS: POSITIVE COUNT NO; POSITIVE DIFFERENTIAL NO; POSITIVE MORPHOLOGY NO
[2018-05-12] MEDS: Ferrous Sulfate 325 MG Tablet PO ×2 (07:58→16:30)
[2018-05-12] MEDS: Aspirin 81 MG TAB.CHEW PO (07:58)
[2018-05-12] MEDS: predniSONE 20 MG Tablet 40 MG PO (07:58)
--- NOTE | 2018-05-12 08:01 | PN_ITS ---
Patient Problems: Active and Suspected Problems DAI (acute kidney injury) (Acute) Subjective: Patient was seen and examined. He denies any chest pain, dizziness or shortness of breath. Overnight still having issues with blood pressure. His carvedilol has just been increased. Urine output appears to be quite decent; 1700 yesterday and 1150 this morning. Denies any fever or chills. Objective: Physical Exam General: Alert, Oriented x3, Cooperative, on 2 L of oxygen HEENT: Atraumatic, PERRLA, EOMI, Normocephalic Oral: Dry Mucosa Neck: Supple Lungs: Clear to auscultation, Normal air movement Cardiovascular: Regular rate, Regular Rhythm, Normal S1, Normal S2, No murmurs Abdomen: Bowel Sounds Present, Soft, Non Tender, Non-Distended, No Hepato- splenomegaly Extremities: Edema - +1 bilateral pedal edema Skin: No rashes Musculoskeletal: No Tenderness to Palpation of Joints or Extremities Lymphatic: No Cervical, Supraclavicular, or Inguinal Adenopathy Neurological: Cranial nerves II-XII grossly intact, Neuro grossly intact Psych/Mental Status: Normal Affect, Appropriate Vitals/I&O's: Vital Signs Temp Pulse Resp BP Pulse Ox 98.9 F 59 L 21 H 149/40 H 95 05/12/18 00:00 05/12/18 07:14 05/12/18 07:00 05/12/18 07:00 05/12/18 07:00 Oxygen Flow Rate (L/min) 2 Oxygen Delivery Method Bi-pap Weight: 89.6 kg Body Mass Index (BMI) 30.3 Intake and Output for Last 24 Hours 05/10/18 05/11/18 05/12/18 23:59 23:59 23:59 Intake Total 895 / 895 610 / 610 240 / 240 Output Total 1750 / 1750 1700 / 1700 1150 / 1150 Balance -855 / -855 -1090 / -1090 -910 / -910 Microbiology Past 72 Hours 05/10/18 23:00 Sputum, Expectorated/Coughed Gram Stain - Final Laboratory Results 05/10/18 13:16: Specimen Type ART, Sample Site L Radial, pH 7.43, Bicarbonate Actual 22.2, POC Total CO2 23, Base Excess -2, O2 Saturation 87 L, ABG pCO2 33.3 L, ABG pO2 51 L, Clay Test POS, O2 Delivery Device Nasal Can, Liter Flow 2.0, Blood Gas Notified Whom KODY MONTENEGRO, Blood Gas Notified Time 1320 05/12/18 05:10: WBC 10.4, RBC 3.18 L, Hgb 9.4 L, Hct 31.9 L, MCV 100.3 H, MCH 29.6, MCHC 29.5 L, RDW 18.2 H, RDW Differential 62.6 H, Plt Count 251, MPV 9.7, Immature Gran % (Auto) 0.600, Neut % (Auto) 75.6 H, Lymph % (Auto) 13.5 L, Yell % (Auto) 9.8, Eos % (Auto) 0.3, Baso % (Auto) 0.2, Absolute Neuts (auto) 7.9 H, Absolute Lymphs (auto) 1.41, Total Counted Not Reportable 05/12/18 05:10: Sodium 140, Potassium 4.0, Chloride 106, Carbon Dioxide 29.0, Anion Gap 5, BUN 46 H, Creatinine 1.39 H, Estim Creat Clear Calc 48.87, Est GFR (MDRD) Af Amer 66, Est GFR (MDRD) Non-Af 54 L, BUN/Creatinine Ratio 33.1 H, Glucose 111 H, Calcium 8.4 L, Phosphorus 4.2, Magnesium 2.4 Current Medications Acetaminophen (Tylenol) 650 mg PO Q6H PRN PRN PRN Reason: Mild Pain (1-3)/Temp > 100.7 F Last Admin: 05/11/18 22:58 Dose: 650 mg Albuterol Sulfate (Ventolin Aerosols) 2.5 mg INHALATION Q2H PRN PRN PRN Reason: SOB &/OR WHEEZING Last Admin: 05/12/18 01:30 Dose: 2.5 mg Albuterol/Ipratropium (Duoneb) 3 ml INHALATION Q4H.RT JAIME Last Admin: 05/12/18 05:34 Dose: 3 ml Amlodipine Besylate (Norvasc) 10 mg PO DAILY [facility] Last Admin: 05/11/18 09:40 Dose: 10 mg Aspirin (Aspirin, Baby) 81 mg PO DAILY@0800 [facility] Last Admin: 05/12/18 07:58 Dose: 81 mg Atorvastatin Calcium (Lipitor) 80 mg PO QHS [facility] Last Admin: 05/11/18 22:00 Dose: 80 mg Bumetanide (Bumex) 2 mg PO BID [facility] Last Admin: 05/11/18 21:58 Dose: 2 mg Carvedilol (Coreg) 12.5 mg PO BID [facility] Last Admin: 05/11/18 21:58 Dose: 12.5 mg Clopidogrel Bisulfate (Plavix) 75 mg PO DAILY [facility] Last Admin: 05/11/18 09:40 Dose: 75 mg Docusate Sodium (Colace) 100 mg PO BID [facility] Last Admin: 05/11/18 22:02 Dose: 100 mg Famotidine (Pepcid) 20 mg PO DAILY [facility] Last Admin: 05/11/18 09:39 Dose: 20 mg Ferrous S[facility] ([facility]ous Sulfate) [facility] Last Admin: 05/12/18 07:58 Dose: 325 mg Finasteride (Proscar) 5 mg PO DAILY [facility] Last Admin: 05/11/18 09:40 Dose: 5 mg Guaifenesin (Mucinex) 600 mg PO BID [facility] Last Admin: 05/11/18 21:59 Dose: 600 mg Heparin Sodium (Porcine) (Heparin Na) 5,000 unit SC Q8 [facility] Last Admin: 05/12/18 05:36 Dose: 5,000 u Hydralazine HCl (Apresoline) 50 mg PO TID [facility] Last Admin: 05/12/18 05:36 Dose: 50 mg Isosorbide Mononitrate (Imdur) 30 mg PO DAILY [facility] Last Admin: 05/11/18 11:17 Dose: 30 mg Labetalol HCl (Trandate) 10 mg IV Q4H PRN PRN PRN Reason: SBP>160 Last Admin: 05/12/18 05:35 Dose: 10 mg Magnesium Hydroxide (Milk Of Magnesia) 30 ml PO DAILY PRN PRN PRN Reason: Constipation Morphine Sulfate () 1 mg IV Q4H PRN PRN PRN Reason: MOD-SEVERE PAIN (4-10/10) Last Admin: 05/10/18 21:03 Dose: 1 mg Ondansetron HCl (Zofran) 4 mg IV Q8H PRN PRN PRN Reason: Nausea Pramipexole Dihydrochloride (Mirapex) 0.5 mg PO QHS [facility] Last Admin: 05/11/18 21:58 Dose: 0.5 mg Prednisone () 40 mg PO DAILY@0800 [facility] Last Admin: 05/12/18 07:58 Dose: 40 mg Sertraline HCl (Zoloft) 50 mg PO DAILY [facility] Last Admin: 05/11/18 09:41 Dose: 50 mg Sodium Chloride () 5 - 30 ml IV UD PRN PRN Reason: SALINE FLUSH Last Admin: 05/12/18 05:36 Dose: 10 ml Tamsulosin HCl (Flomax) 0.4 mg PO BID [facility] Last Admin: 05/11/18 21:59 Dose: 0.4 mg Medical Necessity - Tobacco Use Smoking Status: Light Smoker (<10/day) Assessment/Plan All Active Problems DAI (acute kidney injury) (Acute) Pneumonia (Acute) UTI (urinary tract infection) (Resolved) Sepsis (Resolved) Acute respiratory failure with hypoxia (Acute) Diastolic CHF (Acute) Respiratory failure with hypoxia (Acute) 67 year old M with past medical history of chronic diastolic CHF, pulmonary hypertension, CAD status post CABG, BPH status post chronic Charles catheter with recent removal of Charles catheter, less than a week ago seen with shortness of breath, orthopnea and PND 1. Acute on chronic hypoxic respiratory failure secondary to acute on chronic diastolic CHF, improved, on 2L oxygen, will continue to monitor. 2. Accelerated hypertension,/hypertensive emergency, POA, BP in the EMS was 200/ 84, patient was started on nitro drip yesterday, Bp remains high, on amlodipine, coreg increased to 25mg po bid, will treat hydralazine to 75 mg p.o. 3 times daily, will continue to monitor. 3. Acute on chronic diastolic CHF, likely secondary to accelerated hypertension , dietary indiscretion, on bumex 2mg po bid, will continue on same 4. DAI on CKD stage III, likely cardiorenal, right renal artery stenosis, improving 4. Hyperkalemia secondary to likely DAI, use of oral potassium, resolved 5. Leukocytosis, likely reactive, improved, from 27.5 to 12.1, patient is asymptomatic, no signs of infection, urine cultures are negative. 6. CAD status post CABG, on Plavix, statin 7. Hyperlipidemia, on statin 8. BPH status post Charles catheter, urology following, ultrasound of prostate is normal 9. DVT prophylaxis-heparin subcu 10. GI prophylaxis with famotidine 11. Code status: Full Code Visit Inpatient E&M: 62429 Subs Hosp L2
--- NOTE | 2018-05-12 08:23 | PN_ITS ---
Subjective: Patient did well overnight. Patient did use BiPAP with sleep and tolerated well. Patient did have a stress test yesterday showing a preserved ejection fraction with no ischemia changes. Patient had been weaned to room air prior to BiPAP therapy. Blood pressure remains elevated and has been treated with as needed labetalol. General: Alert, Oriented x3, Cooperative, No apparent distress, - - Appears older than stated age. Speaking in full sentences. HEENT: Atraumatic, PERRLA, EOMI, Normocephalic, - - Slight scleral injection without icterus Oral: Moist Mucosa, No Gingival or Mucosal Lesions/ Ulcerations Neck: Supple, No Nodes, Trachea Midline, JVD, Right Lungs: No rhonchi, No wheeze, No rales, Diminished, - - Symmetric expansion. No dullness to percussion. Cardiovascular: Regular rate, Regular Rhythm, Normal S1, Normal S2, Murmur, No rub noted, No Gallop Abdomen: Bowel Sounds Present, Soft, Non Tender, Non-Distended, Obese Extremities: No clubbing, No cyanosis, Capillary Refill Less than 3 Seconds, Edema - Improving Skin: - - No significant change compared to previous Musculoskeletal: No Tenderness to Palpation of Joints or Extremities Lymphatic: No Cervical, Supraclavicular, or Inguinal Adenopathy Neurological: Neuro grossly intact - No change from previous Psych/Mental Status: Appropriate, Flat Affect Vital Signs Temp Pulse Resp BP Pulse Ox 37.2 C 59 L 21 H 149/40 H 95 05/12/18 00:00 05/12/18 07:14 05/12/18 07:00 05/12/18 07:00 05/12/18 07:00 Oxygen Flow Rate (L/min) 2 Oxygen Delivery Method Bi-pap Weight: 89.6 kg Body Mass Index (BMI) 30.3 Intake and Output for Last 24 Hours 05/10/18 05/11/18 05/12/18 23:59 23:59 23:59 Intake Total 895 / 895 610 / 610 240 / 240 Output Total 1750 / 1750 1700 / 1700 1150 / 1150 Balance -855 / -855 -1090 / -1090 -910 / -910 Labs (Last 48 Hours) 05/10/18 05/10/18 05/10/18 12:50 12:55 12:55 WBC RBC Hgb Hct MCV MCH MCHC RDW RDW Differential Plt Count MPV Immature Gran % (Auto) Neut % (Auto) Lymph % (Auto) Giles % (Auto) Eos % (Auto) Baso % (Auto) Absolute Neuts (auto) Absolute Lymphs (auto) Total Counted Specimen Type Sample Site pH Bicarbonate Actual POC Total CO2 Base Excess O2 Saturation ABG pCO2 ABG pO2 Clay Test O2 Delivery Device Liter Flow Blood Gas Notified Whom Blood Gas Notified Time Sodium 136 Potassium 5.1 Chloride 102 Carbon Dioxide 25.0 Anion Gap 9 BUN 62 H Creatinine 2.26 H Estim Creat Clear Calc 30.06 Est GFR (MDRD) Af Amer 38 L Est GFR (MDRD) Non-Af 31 L BUN/Creatinine Ratio 27.4 H Glucose 136 H Calcium 8.5 Phosphorus Magnesium Troponin I < 0.015 Urine Color Urine Clarity Urine pH Ur Specific Rye Urine Protein Urine Glucose (UA) Urine Ketones Urine Occult Blood Urine Nitrite Urine Bilirubin Urine Urobilinogen Ur Leukocyte Esterase Urine RBC Urine WBC Ur Squamous Epith Cells Urine Bacteria Urine Mucus MRSA (PCR) POSITIVE H 05/10/18 05/10/18 05/10/18 13:16 14:55 15:45 WBC RBC Hgb Hct MCV MCH MCHC RDW RDW Differential Plt Count MPV Immature Gran % (Auto) Neut % (Auto) Lymph % (Auto) Giles % (Auto) Eos % (Auto) Baso % (Auto) Absolute Neuts (auto) Absolute Lymphs (auto) Total Counted Specimen Type ART Sample Site L Radial pH 7.43 Bicarbonate Actual 22.2 POC Total CO2 23 Base Excess -2 O2 Saturation 87 L ABG pCO2 33.3 L ABG pO2 51 L Clay Test POS O2 Delivery Device Nasal Can Liter Flow 2.0 Blood Gas Notified Whom [facility] Blood Gas Notified Time 1320 Sodium Potassium Chloride Carbon Dioxide Anion Gap BUN Creatinine Estim Creat Clear Calc Est GFR (MDRD) Af Amer Est GFR (MDRD) Non-Af BUN/Creatinine Ratio Glucose Calcium Phosphorus Magnesium Troponin I < 0.015 Urine Color Yellow Urine Clarity Clear Urine pH 6.5 Ur Specific Rye 1.010 Urine Protein 15 H Urine Glucose (UA) Normal Urine Ketones Negative Urine Occult Blood Negative Urine Nitrite Negative Urine Bilirubin Negative Urine Urobilinogen Normal Ur Leukocyte Esterase 25 H Urine RBC 0-5 SEEN Urine WBC 0-5 SEEN Ur Squamous Epith Cells 0 SEEN Urine Bacteria 0 SEEN Urine Mucus 0 SEEN MRSA (PCR) 05/11/18 05/11/18 05/12/18 04:00 04:00 05:10 WBC 12.1 H 10.4 RBC 3.24 L 3.18 L Hgb 9.7 L 9.4 L Hct 32.2 L 31.9 L MCV 99.4 H 100.3 H MCH 29.9 29.6 MCHC 30.1 L 29.5 L RDW 18.1 H 18.2 H RDW Differential 63.5 H 62.6 H Plt Count 267 251 MPV 9.7 9.7 Immature Gran % (Auto) 0.600 Neut % (Auto) 75.6 H Lymph % (Auto) 13.5 L Giles % (Auto) 9.8 Eos % (Auto) 0.3 Baso % (Auto) 0.2 Absolute Neuts (auto) 7.9 H Absolute Lymphs (auto) 1.41 Total Counted Not Reportable Specimen Type Sample Site pH Bicarbonate Actual POC Total CO2 Base Excess O2 Saturation ABG pCO2 ABG pO2 Clay Test O2 Delivery Device Liter Flow Blood Gas Notified Whom Blood Gas Notified Time Sodium 140 Potassium 4.4 Chloride 106 Carbon Dioxide 26.0 Anion Gap 8 BUN 59 H Creatinine 1.85 H Estim Creat Clear Calc 36.72 Est GFR (MDRD) Af Amer 47 L Est GFR (MDRD) Non-Af 39 L BUN/Creatinine Ratio 31.9 H Glucose 108 H Calcium 8.7 Phosphorus Magnesium Troponin I Urine Color Urine Clarity Urine pH Ur Specific Rye Urine Protein Urine Glucose (UA) Urine Ketones Urine Occult Blood Urine Nitrite Urine Bilirubin Urine Urobilinogen Ur Leukocyte Esterase Urine RBC Urine WBC Ur Squamous Epith Cells Urine Bacteria Urine Mucus MRSA (PCR) 05/12/18 05:10 WBC RBC Hgb Hct MCV MCH MCHC RDW RDW Differential Plt Count MPV Immature Gran % (Auto) Neut % (Auto) Lymph % (Auto) Giles % (Auto) Eos % (Auto) Baso % (Auto) Absolute Neuts (auto) Absolute Lymphs (auto) Total Counted Specimen Type Sample Site pH Bicarbonate Actual POC Total CO2 Base Excess O2 Saturation ABG pCO2 ABG pO2 Clay Test O2 Delivery Device Liter Flow Blood Gas Notified Whom Blood Gas Notified Time Sodium 140 Potassium 4.0 Chloride 106 Carbon Dioxide 29.0 Anion Gap 5 BUN 46 H Creatinine 1.39 H Estim Creat Clear Calc 48.87 Est GFR (MDRD) Af Amer 66 Est GFR (MDRD) Non-Af 54 L BUN/Creatinine Ratio 33.1 H Glucose 111 H Calcium 8.4 L Phosphorus 4.2 Magnesium 2.4 Troponin I Urine Color Urine Clarity Urine pH Ur Specific Rye Urine Protein Urine Glucose (UA) Urine Ketones Urine Occult Blood Urine Nitrite Urine Bilirubin Urine Urobilinogen Ur Leukocyte Esterase Urine RBC Urine WBC Ur Squamous Epith Cells Urine Bacteria Urine Mucus MRSA (PCR) Microbiology 05/10/18 23:00 Sputum, Expectorated/Coughed Gram Stain - Final Clinical Impression(s) from Imaging Studies Prostate Ultrasound 05/11/18 00:01 IMPRESSION: Unremarkable ultrasound of the prostate Electronically Signed: Pradeep Marquez MD at 10:57 EDT , Service support , Medical Necessity - Tobacco Use Smoking Status: Light Smoker (<10/day) Assessment/Plan All Active Problems DAI (acute kidney injury) (Acute) Pneumonia (Acute) UTI (urinary tract infection) (Resolved) Sepsis (Resolved) Acute respiratory failure with hypoxia (Acute) Diastolic CHF (Acute) Respiratory failure with hypoxia (Acute) RECOMMENDATIONS 1. Increase Coreg and continue other baseline hypertensive medications 2. Encourage incentive spirometer 3. Increase activity as tolerated, PT/OT 4. Continue aerosols 5. Okay to use BiPAP overnight while sleeping empirically 6. Obtain records from Dr. Quesada's office in [facility] 7. Ambulatory pulse ox prior to discharge 8. Okay to leave the intensive care unit from my perspective IMPRESSIONS 1. Possible sepsis secondary to suspected complicated UTI Patient with significant leukocytosis on presentation. Patient is not reporting any fever at this time. Urinalysis was not consistent with infection. Patient's leukocytosis has resolved today. No fevers have been noted overnight. Will await cultures, but clinically, this is not consistent with a diagnosis of sepsis. 2. Acute renal failure Continued improvement compared to presentation. Renal function appears to be improving with diuresis and placement of Charles catheter. Renal has been consulted. Patient does have atrophic left kidney and CT the abdomen/pelvis showed severe renal stenosis. Some concern for postobstructive uropathy secondary to BPH. Urology is consulted. No indication for renal replacement therapy at this time. May require outpatient evaluation by vascular surgery for dilation. 3. Acute on chronic diastolic CHF Patient with significant hypoxia on presentation that was originally requiring BiPAP therapy. Patient did respond well to Lasix therapy on presentation. Unclear if significant worsening since discharge is secondary to increased salt load versus underlying rhythm disturbance versus postobstructive uropathy leading to decreased urine function at home. Patient is currently on nasal cannula oxygen. Would recommend using BiPAP therapy overnight as patient is at high risk for obstructive sleep apnea. Patient would also benefit from an outpatient polysomnogram. Previous echocardiogram did show diastolic dysfunction. Primary school operations manager Dr. Yu [place], [place]. 4. Presumed COPD Records from Dr. Quesada are not available at this time. Patient has not had pulmonary function test, but previous CT did show extensive emphysematous changes. Bronchodilators would be appropriate. Patient does not appear to be in acute exacerbation at this time, therefore steroids are not indicated. 5. Tobacco abuse Encouraged ongoing smoking cessation. Patient has recently relapsed and started smoking again, despite feeling short of breath with exertion. He denies need for nicotine replacement therapy at this time. Thank for the opportunity to participate in this patient's care, please do not hesitate contact us with any further questions or concerns. This note was generated with [employer] dictation software. It may contain incorrect words, spelling, and punctuation that were not noted in checking the note before signing. Code Visit Inpatient E&M: 59757 Subs Hosp L3
[2018-05-12] MEDS: guaiFENesin 600 MG Tablet PO ×2 (08:46→21:19)
[2018-05-12] MEDS: Sertraline 50 MG Tablet PO (08:46)
[2018-05-12] MEDS: Carvedilol 25 MG Tablet PO ×2 (08:46→21:17)
[2018-05-12] MEDS: Bumetanide 2 MG Tablet PO ×2 (08:46→21:19)
[2018-05-12] MEDS: amLODIPine 10 MG Tablet PO (08:46)
[2018-05-12] MEDS: Isosorbide Mononitrate 30 MG Tablet PO (08:46)
[2018-05-12] MEDS: Clopidogrel Bisulfate 75 MG Tablet PO (08:46)
[2018-05-12] MEDS: Famotidine 20 MG Tablet PO (08:46)
[2018-05-12] MEDS: Tamsulosin HCl 0.4 MG Capsule PO ×2 (08:46→22:19)
[2018-05-12] MEDS: Docusate Sodium 100 MG Capsule PO ×2 (08:47→21:17)
[2018-05-12] MEDS: Finasteride 5 MG Tablet PO (08:51)
--- NOTE | 2018-05-12 10:12 | PN.RENAL_ITS ---
Patient Problems: Active and Suspected Problems DAI (acute kidney injury) (Acute) Subjective: no new complaints - Physical Exam General: Alert, Oriented x3, Cooperative HEENT: Atraumatic, PERRLA, EOMI, Normocephalic Neck: Supple, No JVD, Negative Carotid Bruits Lungs: Clear to auscultation, Normal air movement Cardiovascular: Regular rate, No murmurs Abdomen: Bowel Sounds Present, Soft, Non Tender Extremities: No edema, Capillary Refill Less than 3 Seconds Skin: No rashes, No breakdown Musculoskeletal: No Tenderness to Palpation of Joints or Extremities Neurological: Cranial nerves II-XII grossly intact Psych/Mental Status: Normal Affect, Appropriate Vital Signs Temp Pulse Resp BP Pulse Ox 98.1 F 69 24 H 169/58 H 95 05/12/18 08:00 05/12/18 09:00 05/12/18 09:00 05/12/18 09:00 05/12/18 09:00 Oxygen Flow Rate (L/min) 2 Oxygen Delivery Method Nasal Cannula Weight: 89.6 kg Body Mass Index (BMI) 30.3 Intake and Output for Last 24 Hours 05/10/18 05/11/18 05/12/18 23:59 23:59 23:59 Intake Total 895 / 895 610 / 610 240 / 240 Output Total 1750 / 1750 1700 / 1700 1150 / 1150 Balance -855 / -855 -1090 / -1090 -910 / -910 Microbiology Past 72 Hours 05/10/18 23:00 Gram Stain - Final Sputum, Expectorated/Coughed Laboratory Tests Past 24 Hrs 05/12/18 05/12/18 05:10 05:10 WBC 10.4 RBC 3.18 L Hgb 9.4 L Hct 31.9 L MCV 100.3 H MCH 29.6 MCHC 29.5 L RDW 18.2 H RDW Differential 62.6 H Plt Count 251 MPV 9.7 Immature Gran % (Auto) 0.600 Neut % (Auto) 75.6 H Lymph % (Auto) 13.5 L Bryan % (Auto) 9.8 Eos % (Auto) 0.3 Baso % (Auto) 0.2 Absolute Neuts (auto) 7.9 H Absolute Lymphs (auto) 1.41 Total Counted Not Reportable Sodium 140 Potassium 4.0 Chloride 106 Carbon Dioxide 29.0 Anion Gap 5 BUN 46 H Creatinine 1.39 H Estim Creat Clear Calc 48.87 Est GFR (MDRD) Af Amer 66 Est GFR (MDRD) Non-Af 54 L BUN/Creatinine Ratio 33.1 H Glucose 111 H Calcium 8.4 L Phosphorus 4.2 Magnesium 2.4 Medical Necessity - Tobacco Use Smoking Status: Light Smoker (<10/day) Assessment/Plan All Active Problems DAI (acute kidney injury) (Acute) Pneumonia (Acute) UTI (urinary tract infection) (Resolved) Sepsis (Resolved) Acute respiratory failure with hypoxia (Acute) Diastolic CHF (Acute) Respiratory failure with hypoxia (Acute) DAI. Baseline creatinine at the time of dc from [facility] in feb[facility] was 1.1. recently in mid 1s. UA looks benign. SPEP negative. DAI is likely cardiorenal. creatinine continues to improve Renal artery stenosis. significant history of smoking. coronary, PVD. has cardiac stents and from imaging studies looks like he has a aortobifemoral graft with possible mesentric stent. CT abdomen from last month shows Left kidney is atrophic and is likely dysfunctional right renal artery has extensive calcification at origin (this was a non contrast study). Likely has stenosis, possibly hemodynamically significant looking at anatomy on CT, he has extensive calcification all over aorta and most of renal artery. stress echo is ok. now hypertensive His hypertension and recurrent episodes of CHF could be mediated by Renal A stenosis. Unfortunately the lesion is likely not stentable because of extensive calcifications. ? vascular surgery evaluation.
[2018-05-12] MEDS: hydrALAZINE 50 MG Tablet 75 MG PO ×2 (14:02→21:17)
--- NOTE | 2018-05-12 16:32 | PCM.PN.CARD ---
Subjectve: Patient doing very well today. Able to lay down flat without any difficulty. No further lower extremity edema. Creatinine stable. Stress echo yesterday negative for inducible ischemia superimposed upon mild baseline LV dysfunction. Telemetry shows normal sinus rhythm with rare PVC. Objective: Vital Signs Temp Pulse Resp BP Pulse Ox 97.7 F L 75 22 H 153/71 H 98 05/12/18 15:16 05/12/18 15:16 05/12/18 15:16 05/12/18 15:16 05/12/18 15:16 Oxygen Flow Rate (L/min) 2 Oxygen Delivery Method Nasal Cannula Weight: 197 lb 8.547 oz Body Mass Index (BMI) 30.3 Intake and Output for Last 24 Hours 05/10/18 05/11/18 05/12/18 23:59 23:59 23:59 Intake Total 895 / 895 610 / 610 540 / 540 Output Total 1750 / 1750 1700 / 1700 1650 / 1650 Balance -855 / -855 -1090 / -1090 -1110 / -1110 General: Awake, Alert, Oriented x 3 HEENT: PERRL, EOMI, Sclera Non Icteric Neck: Supple, Good ROM, No Lymph Node Enlargement Lungs: Clear to auscultation Cardiovascular: Regular Rhythm, Normal S1, Normal S2, No Murmurs, No Rubs, No Gallops Vascular: No Carotid Bruits, Normal Femoral Pulses, Normal Radial Pulses, Normal Dorsalis Pedal Pulse, Normal Posterior Tibial Pulses Abdomen: Bowel Sounds Present, Soft, Non Tender, No HSM, No Organomegaly Extremities: No Cyanosis, No Clubbing, No edema Neurological: No Focal Motor or Sensory Deficit 05/12/18 05:10: WBC 10.4, RBC 3.18 L, Hgb 9.4 L, Hct 31.9 L, MCV 100.3 H, MCH 29.6, MCHC 29.5 L, RDW 18.2 H, RDW Differential 62.6 H, Plt Count 251, MPV 9.7, Immature Gran % (Auto) 0.600, Neut % (Auto) 75.6 H, Lymph % (Auto) 13.5 L, Beauregard % (Auto) 9.8, Eos % (Auto) 0.3, Baso % (Auto) 0.2, Absolute Neuts (auto) 7.9 H, Total Counted Not Reportable 05/12/18 05:10: Sodium 140, Potassium 4.0, Chloride 106, Carbon Dioxide 29.0, Anion Gap 5, BUN 46 H, Creatinine 1.39 H, Est GFR (MDRD) Af Amer 66, Est GFR (MDRD) Non-Af 54 L, BUN/Creatinine Ratio 33.1 H, Glucose 111 H, Calcium 8.4 L, Phosphorus 4.2, Magnesium 2.4 Rhythm: EKG: ECHO: Stress Test: Cardiac Cath: PCI: CT Surgery: Holter monitor: EPS: PPM: CXR: Chest CT Scan: Medical Necessity - Tobacco Use Smoking Status: Light Smoker (<10/day) Assessment/Plan 1. Congestive heart failure: The patient had recently been admitted for pneumonia, and returns now with congestive heart failure including hypoxia, dyspnea, orthopnea, PND, and lower extremity edema. His echocardiogram done on 04/08/18 showed intact LV function with stage II diastolic dysfunction and at least mild pulmonary hypertension with an RVSP of 42 mmHg. Recommend continuing the patient on Bumex 2 mg p.o. twice daily, Imdur 60 mg a day, hydralazine 25 mg p.o. twice daily for afterload reduction, and increasing Coreg to 12.5 mg p.o. twice daily now that he is reached his dry weight. Would recommend discontinuation of spironolactone given his hyperkalemia and chronic renal insufficiency. Patient is ruled out for myocardial infarction with troponins negative ?3, and underwent a dobutamine echocardiogram on 05/11/18 which was negative for inducible ischemia. He has had a recent PCI in May 2017, and has a history of 13 stents in the past. Will hold off on catheterization at this time given the patient's chronic renal insufficiency and relatively normal dobutamine echocardiogram. If the patient has recurrent CHF symptoms, I do have a low threshold for a repeat left heart catheterization as well as a right heart catheterization to assess his pulmonary pressures. In addition he will require a bilateral renal selective angiogram to evaluate for atrophic kidney, as well as renal artery stenosis. Would also recommend obtaining his old records from his manager investigations down in [place] as well as from [place] to identify his grafts as well as his previous stents. 2. Hyperlipidemia: Recommend obtaining a fasting lipid profile. Continue Crestor. His LDL should be less than 70. 3. Tobacco cessation: I had a long and thorough discussion with the patient regarding tobacco use and have strongly recommended discontinuation of all tobacco products. 4. Thank you very much for the opportunity to participate in the cardiac care of your patient. Patient will follow-up with Dr. Barrientos going forward. Patient may be discharged home from a cardiac standpoint once clinically stabilized. Code Visit Inpatient E&M: 71294 Subs Hosp L2
[2018-05-12] MEDS: Atorvastatin Calcium 80 MG Tablet PO (21:19)
[2018-05-12] MEDS: Pramipexole Di-HCl 0.5 MG Tablet PO (21:21)
[2018-05-12] MEDS: LORazepam 1 MG Tablet PO (22:20)
[2018-05-13] VITALS (12 sets, daily range): BP systolic 141–154; BP diastolic 58–73; PULSE 60–81; RESP 16–20; TEMP 36.4–37.1; O2SAT 91–96
[2018-05-13] MEDS: hydrALAZINE 50 MG Tablet 75 MG PO ×2 (05:08→14:07)
[2018-05-13] MEDS: Heparin Injection (Vial) 5,000 UNIT/ML VIAL 5000 UNIT SC (05:09)
[2018-05-13] MEDS: Ipratropium/Albuterol Sulfate 3 ML AMPUL.NEB INHALATION ×2 (06:53→10:15)
[2018-05-13 07:32] LABS: Anion Gap 7 (5-15); BUN 38 mg/dL (7-18); BUN/Creat Ratio 28.8 RATIO (10-20); Calcium,Total 8.6 mg/dL (8.5-10.1); Chloride 108 mmol/L (98-107); Creatinine, Serum 1.32 mg/dL (0.70-1.30); EST Glomerular Filtration Rate 58 mL/min (>60); Est Glom Filt Rate - Afr Amer 70 mL/min (>60); Estimated Creatinine Clearance 51.47 ml/min; Glucose 93 mg/dL (74-106); Potassium 3.8 mmol/L (3.5-5.1); Sodium Level 144 mmol/L (136-145)
[2018-05-13] MEDS: predniSONE 20 MG Tablet 40 MG PO (08:55)
[2018-05-13] MEDS: Ferrous Sulfate 325 MG Tablet PO (08:55)
[2018-05-13] MEDS: Aspirin 81 MG TAB.CHEW PO (08:55)
[2018-05-13] MEDS: Bumetanide 2 MG Tablet PO (08:56)
[2018-05-13] MEDS: Tamsulosin HCl 0.4 MG Capsule PO (08:57)
[2018-05-13] MEDS: Isosorbide Mononitrate 30 MG Tablet PO (08:58)
[2018-05-13] MEDS: Famotidine 20 MG Tablet PO (09:04)
[2018-05-13] MEDS: guaiFENesin 600 MG Tablet PO (09:04)
[2018-05-13] MEDS: amLODIPine 10 MG Tablet PO (09:04)
[2018-05-13] MEDS: Finasteride 5 MG Tablet PO (09:04)
[2018-05-13] MEDS: Docusate Sodium 100 MG Capsule PO (09:04)
[2018-05-13] MEDS: Sertraline 50 MG Tablet PO (09:04)
[2018-05-13] MEDS: Carvedilol 25 MG Tablet PO (09:04)
[2018-05-13] MEDS: Clopidogrel Bisulfate 75 MG Tablet PO (09:04)
--- NOTE | 2018-05-13 10:36 | PCM.PROGNOTE ---
Patient Problems: Active and Suspected Problems DAI (acute kidney injury) (Acute) Subjective: Patient transferred out of the intensive care unit yesterday. Patient did well overnight and feels subjective improvement. Patient has been weaned to room air and nursing completed a walking oximetry showing a saturation of 91% with exertion on room air. Patient continues to report periodic cough, but overall feels subjectively improved. Patient did not wear BiPAP therapy overnight. - Physical Exam General: Alert, Oriented x3, Cooperative, No apparent distress, - - Appears older than stated age. Speaking in full sentences. HEENT: Atraumatic, PERRLA, EOMI, Normocephalic, - - No scleral icterus or injection noted. Oral: Moist Mucosa, No Gingival or Mucosal Lesions/ Ulcerations Neck: Supple, No JVD, No Nodes, Trachea Midline Lungs: No rhonchi, No wheeze, No rales, Diminished, - - Symmetric expansion. No dullness to percussion. Cardiovascular: Regular rate, Regular Rhythm, Normal S1, Normal S2, No murmurs, No rub noted, No Gallop Abdomen: Bowel Sounds Present, Soft, Non Tender, Non-Distended, Obese Extremities: No cyanosis, Capillary Refill Less than 3 Seconds, Clubbing, Edema - Improved Skin: - - No significant change compared to previous Musculoskeletal: No Tenderness to Palpation of Joints or Extremities Lymphatic: No Cervical, Supraclavicular, or Inguinal Adenopathy Neurological: Cranial nerves II-XII grossly intact, Neuro grossly intact, Motor Exam 5/5 strength throughout Psych/Mental Status: Alert and oriented to time, place, person, mood and affect Vital Signs Temp Pulse Resp BP Pulse Ox 37.1 C 72 19 H 145/66 H 94 05/13/18 08:49 05/13/18 08:49 05/13/18 08:49 05/13/18 08:49 05/13/18 08:50 Oxygen Flow Rate (L/min) [ 0 AMBULATING on Room Air] Oxygen Flow Rate (L/min) [At 0 REST on Room Air] Oxygen Flow Rate (L/min) 2 Oxygen Delivery Method Room Air Weight: 87.7 kg Body Mass Index (BMI) 30.3 Intake and Output for Last 24 Hours 05/11/18 05/12/18 05/13/18 23:59 23:59 23:59 Intake Total 610 / 610 1020 / 1020 222 / 222 Output Total 1700 / 1700 2625 / 2625 550 / 550 Balance -1090 / -1090 -1605 / -1605 -328 / -328 Microbiology Past 72 Hours 05/10/18 23:00 Gram Stain - Final Sputum, Expectorated/Coughed Respiratory Culture - Final Mixed normal respiratory jaylen. No Haemophilus, Streptococcus pneumoniae, beta-hemolytic Streptococcus or Staphylococcus aureus isolated. 05/10/18 11:50 Blood Culture - Preliminary Blood Culture (Wb) - No Site/Description Given No growth in 48 hours. 05/10/18 14:20 Urine Culture - Final Urine Catheter - Charles Culture exhibits no growth. Laboratory Tests Past 24 Hrs 05/13/18 06:15 Sodium 144 Potassium 3.8 Chloride 108 H Carbon Dioxide 29.0 Anion Gap 7 BUN 38 H Creatinine 1.32 H Estim Creat Clear Calc 51.47 Est GFR (MDRD) Af Amer 70 Est GFR (MDRD) Non-Af 58 L BUN/Creatinine Ratio 28.8 H Glucose 93 Calcium 8.6 Medical Necessity - Tobacco Use Smoking Status: Light Smoker (<10/day) Assessment/Plan All Active Problems DAI (acute kidney injury) (Acute) Pneumonia (Acute) UTI (urinary tract infection) (Resolved) Sepsis (Resolved) Acute respiratory failure with hypoxia (Acute) Diastolic CHF (Acute) Respiratory failure with hypoxia (Acute) RECOMMENDATIONS 1. Continue current hypertensive medications 2. Encourage incentive spirometer 3. Increase activity as tolerated, PT/OT 4. Continue aerosols 5. Recommend BiPAP overnight while sleeping empirically 6. Obtain records from Dr. Quesada's office in [facility] 7. Ambulatory pulse ox prior to discharge 8. Okay to discharge from a pulmonary perspective 9. Patient should follow-up with nurse practitioner 2 weeks after discharge IMPRESSIONS 1. Possible sepsis secondary to suspected complicated UTI Patient with significant leukocytosis on presentation. Patient is not reporting any fever at this time. Urinalysis was not consistent with infection. Patient's leukocytosis has resolved. No fevers have been noted overnight. All cultures are negative. Clinically, this is not consistent with a diagnosis of sepsis. 2. Acute renal failure Continued improvement compared to presentation. Renal function appears to be improving with diuresis and placement of Charles catheter. Renal has been consulted. Patient does have atrophic left kidney and CT the abdomen/pelvis showed severe renal stenosis. Some concern for postobstructive uropathy secondary to BPH. Urology is consulted. No indication for renal replacement therapy at this time. May require outpatient evaluation by vascular surgery for dilation. 3. Acute on chronic diastolic CHF Patient with significant hypoxia on presentation that was originally requiring BiPAP therapy. Patient did respond well to Lasix therapy on presentation. Unclear if significant worsening since discharge is secondary to increased salt load versus underlying rhythm disturbance versus postobstructive uropathy leading to decreased urine function at home. Patient is currently on room air on ambulation. Would recommend using BiPAP therapy overnight as patient is at high risk for obstructive sleep apnea. Patient would also benefit from an outpatient polysomnogram. Previous echocardiogram did show diastolic dysfunction. Primary blade operator Dr. Yu [place], [place]. 4. Presumed COPD Records from Dr. Quesada are not available at this time. Patient has not had pulmonary function test, but previous CT did show extensive emphysematous changes. Bronchodilators would be appropriate. Patient does not appear to be in acute exacerbation at this time, therefore steroids are not indicated. 5. Tobacco abuse Encouraged ongoing smoking cessation. Patient has recently relapsed and started smoking again, despite feeling short of breath with exertion. He denies need for nicotine replacement therapy at this time. Thank for the opportunity to participate in this patient's care, please do not hesitate contact us with any further questions or concerns. This note was generated with [employer] dictation software. It may contain incorrect words, spelling, and punctuation that were not noted in checking the note before signing. Code Visit Inpatient E&M: 30971 Subs Hosp L2
--- NOTE | 2018-05-13 11:25 | PCM.DC ---
- Discharge Diagnoses Current Active Problems: Current Active and Chronic Problems DAI (acute kidney injury) (Acute) You will use the following diet at home:: Cardiac - <2 grams sodium daily Your food should be the consistency of: Regular Your liquids should be the consistency of: Regular/Thin Discharge Activity: Return to Normal Activity Allergies/Adverse Reactions: Allergies irbesartan [From Avapro] Adverse Reaction (Verified 05/10/18 09:40) Other zolpidem [From Ambien] Adverse Reaction (Verified 05/10/18 09:40) Other Medications to take at Discharge Aspirin [Aspirin, Baby] 81 mg PO DAILY@0800 01/28/18 Clopidogrel Bisulfate [Plavix] 75 mg PO DAILY 01/28/18 Ropinirole HCl [Requip] 1 mg PO QHS 01/28/18 Rosuvastatin Calcium [Crestor] 40 mg PO QHS 01/28/18 Tamsulosin HCl [Flomax] 0.4 mg PO BID 01/28/18 Finasteride [Proscar] 5 mg PO DAILY 04/08/18 Bumetanide 2 mg PO BID #60 tab 04/10/18 Albuterol Aerosols [Ventolin Aerosols] 2.5 mg INHALATION Q4H PRN 05/10/18 Amlodipine [Norvasc] 5 mg PO DAILY 05/10/18 Ferrous Sulfate 325 mg PO BIDCM 05/10/18 Sertraline HCl [Zoloft] 50 mg PO DAILY 05/10/18 Carvedilol [Coreg (Beta Kadi)] 25 mg PO BID #60 tab 05/13/18 Isosorbide Mononitrate [Imdur] 30 mg PO DAILY #30 tab 05/13/18 Prednisone 10 mg PO UD #22 tab 05/13/18 hydrALAZINE [Apresoline] 75 mg PO TID #100 tab 05/13/18 The following prescriptions were given: Carvedilol [Coreg (Beta Kadi)] 25 mg PO BID #60 tab Isosorbide Mononitrate [Imdur] 30 mg PO DAILY #30 tab Prednisone 10 mg PO UD #22 tab hydrALAZINE [Apresoline] 75 mg PO TID #100 tab Primary Care Physician: Tania Berger NP-C [Primary Care Provider] - Please follow up with your Primary Care Physician in: 2 weeks Test Results: Test results from this visit will be discussed in further detail at your follow-up appointment, if applicable. Please Follow Up With: Elie Caicedo MD When: 2 weeks Please Follow Up With: Alvaro Villa MD When: 1 week Please Follow Up With: Caleb Alaniz MD When: as directed Please Follow Up With: Cardiology - Your physician in [place] When: 2 weeks Proposed Discharge Date: 05/13/18
--- NOTE | 2018-05-13 11:29 | DCINST_ITS ---
- Discharge Diagnoses Current Active Problems: Current Active and Chronic Problems DAI (acute kidney injury) (Acute) You will use the following diet at home:: Cardiac - <2 grams sodium daily Your food should be the consistency of: Regular Your liquids should be the consistency of: Regular/Thin Discharge Activity: Return to Normal Activity Allergies/Adverse Reactions: Allergies irbesartan [From Avapro] Adverse Reaction (Verified 05/10/18 09:40) Other zolpidem [From Ambien] Adverse Reaction (Verified 05/10/18 09:40) Other Medications to take at Discharge Aspirin [Aspirin, Baby] 81 mg PO DAILY@0800 01/28/18 Clopidogrel Bisulfate [Plavix] 75 mg PO DAILY 01/28/18 Ropinirole HCl [Requip] 1 mg PO QHS 01/28/18 Rosuvastatin Calcium [Crestor] 40 mg PO QHS 01/28/18 Tamsulosin HCl [Flomax] 0.4 mg PO BID 01/28/18 Finasteride [Proscar] 5 mg PO DAILY 04/08/18 Bumetanide 2 mg PO BID #60 tab 04/10/18 Albuterol Aerosols [Ventolin Aerosols] 2.5 mg INHALATION Q4H PRN 05/10/18 Amlodipine [Norvasc] 5 mg PO DAILY 05/10/18 Ferrous Sulfate 325 mg PO BIDCM 05/10/18 Sertraline HCl [Zoloft] 50 mg PO DAILY 05/10/18 Carvedilol [Coreg (Beta Kadi)] 25 mg PO BID #60 tab 05/13/18 Isosorbide Mononitrate [Imdur] 30 mg PO DAILY #30 tab 05/13/18 Prednisone 10 mg PO UD #22 tab 05/13/18 hydrALAZINE [Apresoline] 75 mg PO TID #100 tab 05/13/18 The following prescriptions were given: Carvedilol [Coreg (Beta Kadi)] 25 mg PO BID #60 tab Isosorbide Mononitrate [Imdur] 30 mg PO DAILY #30 tab Prednisone 10 mg PO UD #22 tab hydrALAZINE [Apresoline] 75 mg PO TID #100 tab Primary Care Physician: Tania Berger NP-C [Primary Care Provider] - Please follow up with your Primary Care Physician in: 2 weeks Test Results: Test results from this visit will be discussed in further detail at your follow- up appointment, if applicable. Please Follow Up With: Elie Caicedo MD When: 2 weeks Please Follow Up With: Alvaro Villa MD When: 1 week Please Follow Up With: Caleb Alaniz MD When: as directed Please Follow Up With: Cardiology - Your physician in [place] When: 2 weeks Proposed Discharge Date: 05/13/18
--- NOTE | 2018-05-13 13:36 | PCM.DC.SUM ---
<Itz Bennett - Last Filed: 05/13/18 13:36> Discharge Date and Diagnosis - Problem List Patient Problems: Active and Suspected Problems DAI (acute kidney injury) (Acute) Date of Admission: 05/10/18 Date of Discharge: 05/13/18 - Primary Discharge Diagnosis Active and Suspected Problems Acute on chronic hypoxic respiratory failure 2/2 diastolic CHF exacerbation, pulm htn, htn emergency DAI (acute kidney injury) (Acute) Urinary retention 2/2 BPH HTN emergency Renal artery stenosis COPD CAD prior CABG Hyperkalemia 2/2 DAI UTI ruled out HLD Nicotine abuse - Secondary Discharge Diagnosis Chronic Problems HLD (hyperlipidemia) (Chronic) HTN (hypertension) (Chronic) PAD (peripheral artery disease) (Chronic) CAD (coronary artery disease) (Chronic) COPD (chronic obstructive pulmonary disease) (Chronic) Tobacco dependence (Chronic) CKD (chronic kidney disease) (Chronic) Leukocytosis (Chronic) Anemia (Chronic) BPH (benign prostatic hyperplasia) (Chronic) Hospital Course and Treatment Imaging Results: RAD/Chest 1 View (Portable) IMPRESSION: Interstitial edema with small bilateral pleural effusions. No interval change since the previous study. US/Prostate IMPRESSION: Unremarkable ultrasound of the prostate Stress Echo: Interpretation Summary The estimated ejection fraction is 50 %. The patient was titrated from 10 mcg to a maximun of 30 mcg of dobutamine during the stress. Normal, adequate, dobutamine echocardiogram. Negative for ischemia by EKG and echocardiographic criteria. No anginal symptoms noted. Rare PVC noted. Appropriate blood pressure response to dobutamine. Final LVEF is 60%. No complications. Consultations: Sascha - pulmonology Barrientos - cardiology Daisy - urology Corbin - nephrology Operations: None Procedures: Stress test Summary of Care Provided: Physical exam on day of discharge: General: Resting comfortably NAD Psych: A/Ox3 normal affect HEENT: PEARRLA AT NC Neck: Supple NT CV: RRR no m/t/r/g/h Resp: Diffuse wheezing Abd: [id number] Soft NT no guarding or rigidity Ext: DP2+= no edema Skin: W/D normal turgor Lymph/Heme: No active bleeding or adenopathy Neuro: CN2-12 intact Hospital course: The patient is a 67 year old M with a history of diastolic CHF, pulmonary hypertension, COPD, CAD status post prior CABG, nicotine abuse, and BPH with a chronic Charles catheter which was recently removed, who presented to the ER with increased shortness of breath and stating that he felt like he was filling up with fluid. He had lower extremity edema, paroxysmal nocturnal dyspnea and orthopnea, chest x-ray consistent with congestive heart failure. He had significantly elevated blood pressure on admission was considered to have hypertensive emergency-he has a history of renal artery stenosis contributing to his blood pressure and congestive heart failure. He appeared to have DAI, hyperkalemia, and had marked leukocytosis however negative urinalysis, unremarkable ABG. He was placed on BiPAP and admitted to the PCU, started on IV Lasix, restarted Charles catheter. Cardiology, critical care, urology, and nephrology were consulted. Potassium and Aldactone were discontinued. Cardiology additionally placed him on hydralazine, Imdur, and switch him to Coreg. The recommended that he later undergo a stress test. This was obtained later on his admission and was negative for ischemia. The patient improved from a volume status, his renal function improved, and he was able to be weaned off oxygen. He developed some wheezing and was placed on a prednisone taper. He was transitioned back to his Bumex dose. The Charles was kept in place to ensure adequate drainage of his bladder. He was discharged home in stable condition. He will need to follow-up with pulmonology, nephrology, urology for his BPH and Charles care, and cardiology, in addition to his PCP. This patient was seen by Itz Bennett PA-C under the supervision of Doctor Duong. [] Discharge Activity: Return to Normal Activity Home Medications: Medications to take at Discharge Aspirin [Aspirin, Baby] 81 mg PO DAILY@0800 01/28/18 Clopidogrel Bisulfate [Plavix] 75 mg PO DAILY 01/28/18 Ropinirole HCl [Requip] 1 mg PO QHS 01/28/18 Rosuvastatin Calcium [Crestor] 40 mg PO QHS 01/28/18 Tamsulosin HCl [Flomax] 0.4 mg PO BID 01/28/18 Finasteride [Proscar] 5 mg PO DAILY 04/08/18 Bumetanide 2 mg PO BID #60 tab 04/10/18 Albuterol Aerosols [Ventolin Aerosols] 2.5 mg INHALATION Q4H PRN 05/10/18 Amlodipine [Norvasc] 5 mg PO DAILY 05/10/18 Ferrous Sulfate 325 mg PO BIDCM 05/10/18 Sertraline HCl [Zoloft] 50 mg PO DAILY 05/10/18 Carvedilol [Coreg (Beta Kadi)] 25 mg PO BID #60 tab 05/13/18 Isosorbide Mononitrate [Imdur] 30 mg PO DAILY #30 tab 05/13/18 Prednisone 10 mg PO UD #22 tab 05/13/18 hydrALAZINE [Apresoline] 75 mg PO TID #100 tab 05/13/18 Following Prescrptions Were Given to Patient: Carvedilol [Coreg (Beta Kadi)] 25 mg PO BID #60 tab Isosorbide Mononitrate [Imdur] 30 mg PO DAILY #30 tab Prednisone 10 mg PO UD #22 tab hydrALAZINE [Apresoline] 75 mg PO TID #100 tab Primary Care Physician: Tania Berger NP-C [Primary Care Provider] - Please follow up with your Primary Care Physician in: 2 weeks Please Follow Up With: Elie Caicedo MD When: 2 weeks Please Follow Up With: Alvaro Villa MD When: 1 week Please Follow Up With: Caleb Alaniz MD When: as directed Please Follow Up With: Cardiology - Your physician in [place] When: 2 weeks Medical Necessity - Tobacco Use Smoking Status: Light Smoker (<10/day) Meaningful Use Info Meaningful Use Diagnoses (Choose all that apply): CHF - CHF HEATHER/ARB ordered at discharge?: No Reason HEATHER/ARB not ordered?: Worsening renal disease Documented LVEF (%): 50 <Carmen Duong - Last Filed: 05/13/18 14:08> Discharge Date and Diagnosis - Primary Discharge Diagnosis Active and Suspected Problems DAI (acute kidney injury) (Acute) - Secondary Discharge Diagnosis Chronic Problems HLD (hyperlipidemia) (Chronic) HTN (hypertension) (Chronic) PAD (peripheral artery disease) (Chronic) CAD (coronary artery disease) (Chronic) COPD (chronic obstructive pulmonary disease) (Chronic) Tobacco dependence (Chronic) CKD (chronic kidney disease) (Chronic) Leukocytosis (Chronic) Anemia (Chronic) BPH (benign prostatic hyperplasia) (Chronic) Hospital Course and Treatment Summary of Care Provided: The patient is a 67 year old M [] Disposition: Home Minutes spent on discharge:: 45 Patient Condition:: Stable Code Visit Inpatient E&M: 60481 Disch Hosp
--- NOTE | 2018-05-13 13:41 | CASEMGMT ---
This RN CM to room to speak with pt regarding CCN referral as pt has had 4 hospital admissions in the last month or so. CCN explained to pt/ at this time, voice understanding, and pt declines referral at this time. Pt does agree to accept CCN number for future reference at this time. Pt states is switching to Dr. Barrientos and Dr. Caicedo from [facility] and is hoping to better control his chronic disease. Pt provided with contact number for CCN and with [facility] Heart failure pamphlet at this time, voices understanding. Chris ANDRADE CM
--- NOTE | 2018-05-15 16:45 | CASEMGMT ---
RAYMOND SPENCER Discharge F/U Phone Call LACLuli: 15 Strata: 4 Discharge date: 05/13/18 Call date: 05/15/18 Call time: 1645 Duration: 5 minutes Admission dx: Acute hypoxic respiratory failure Pt states has 'not been doing too well' since home and states that he was on his brother's cpap for 10 hours last night, 'for the air.' Pt is able to speak in full sentences on the phone and has not dyspnea noted at this time. Pt states has some swelling in bilat ankles and took an extra 'water pill' today. Pt states that he is working on getting f/u appt's set up with Terra Berger TRAVEL GUIDE and tar roofer. Pt states no questions regarding medications or discharge instructions at this time. Pt states no further questions/concerns/needs at this time. Advised pt to call this RAYMOND SPENCER back with any further questions/concerns, voices understanding. Pt states that his is with him 'out at the amor' and they will be back home tomorrow. S[place]en RAYMOND SPENCER
== END 2018-05-13 14:32 | disposition home or self-care (01) | DRG 291 ==
LOC: ED 09:49 → ICU 11:20 → PCU 05-12 14:52
PROVIDERS: Internal Medicine Critical Care Medicine; Admitting Provider Internal Medicine; Emergency Provider Emergency Medicine; Family Provider Nurse Practitioner Family; PCP Nurse Practitioner Family; Visit Provider Internal Medicine
DX: I13.0 Hypertensive heart and chronic kidney disease with heart failure and stage 1 through stage 4 chronic kidney disease, or unspecified chronic kidney disease (principal); J96.21 Acute and chronic respiratory failure with hypoxia; I50.33 Acute on chronic diastolic (congestive) heart failure; J96.22 Acute and chronic respiratory failure with hypercapnia; N17.9 Acute kidney failure, unspecified; I16.1 Hypertensive emergency; N18.3 Chronic kidney disease, stage 3 (moderate); N40.1 Benign prostatic hyperplasia with lower urinary tract symptoms; R33.9 Retention of urine, unspecified; I25.10 Atherosclerotic heart disease of native coronary artery without angina pectoris; Z95.1 Presence of aortocoronary bypass graft; E78.5 Hyperlipidemia, unspecified; J44.9 Chronic obstructive pulmonary disease, unspecified; D63.8 Anemia in other chronic diseases classified elsewhere; F17.200 Nicotine dependence, unspecified, uncomplicated; E87.5 Hyperkalemia; I27.20 Pulmonary hypertension, unspecified
CPT/HCPCS: 36600; 51702; 71045; 76872; 80048; 80053; 81001; 82803; 82962; 83605; 83735; 84100; 84484; 85025; 85027; 87040; 87070; 87086; 87205; 87641; 93005; 93017; 93350; 94002; 94003; 94640; 97110; 97116; 97162; 97165; 97530; 97802; 99251; 99285; 99406; J7030; A4216; G0463; J1940

== ENCOUNTER 2018-05-15 20:01 | Inpatient (IN) | payer MEDICARE, SELFPAY ==
[2018-05-15] VITALS (12 sets, daily range): BP systolic 156–172; BP diastolic 62–83; PULSE 61–82; RESP 12–32; TEMP 36.4–37.1; O2SAT 96–100; BMI 30.4; BMI 29.2; BMI 29.3
--- NOTE | 2018-05-15 20:04 | EKG12_ITS ---
Test Reason : SOB Blood Pressure : / mmHG Vent. Rate : 066 BPM Atrial Rate : 066 BPM P-R Int : 200 ms QRS Dur : 096 ms QT Int : 474 ms P-R-T Axes : 027 068 112 degrees QTc Int : 496 ms Sinus rhythm with marked sinus arrhythmia Nonspecific T wave abnormality Prolonged QT Abnormal ECG Confirmed by SANTANA MONTENEGRO, KEISHA ([id number]), supervising editor news reel SHIRA HURD ([id number]) on 05/18/2018 9:52:26 AM Referred By: ALLA Confirmed By:KEISHA DILLON MD
--- NOTE | 2018-05-15 20:08 | RAD_ITS ---
STUDY: X-RAY CHEST REASON FOR EXAM: Male, 67 years old. Short of breath TECHNIQUE: AP portable COMPARISON: May 10, 2018 FINDINGS: Generalized hyperinflation with mild pulmonary vascular congestion and small bilateral effusions with bibasilar atelectasis.. Heart is enlarged. Normal mediastinum and justyn. Normal visualized pulmonary arteries. Normal visualized aortic arch and descending thoracic aorta. Postsurgical change status post median sternotomy and CABG. Normal visualized thoracic spine. Normal visualized ribs, clavicles, and shoulders. There is no demonstrated abnormality of the visualized soft tissue structures of the upper abdomen. RAD/Chest 1 View (Portable) IMPRESSION: COPD with superimposed mild pulmonary congestion with bilateral effusions and bibasilar atelectasis Electronically Signed: Pb Lancaster MD at 20:32 EDT , Service support ,
[2018-05-15] MEDS: Nitroglycerin Oint 1 INCH PACKET TRANSDERM. (20:24)
[2018-05-15] MEDS: Furosemide 100 MG/10 ML Vial 80 MG IV (20:24)
[2018-05-15] MEDS: Ipratropium/Albuterol Sulfate 3 ML AMPUL.NEB INHALATION (20:25)
[2018-05-15 20:29] LABS: Absolute Lymphocyte Count 0.92 X10^3/ul (0.83-4.51); Basophil# 0.01 X10^3/uL; Basophil% 0.1 % (0-1); Hemoglobin 10.7 g/dl (13.0-16.5); Lymphocyte # 0.92 X10^3/ul (4.0); Lymphocyte % 7.2 % (19-41); Mean Corp Hgb Conc 31.5 g/gl (32-36); Mean Corpuscular Volume 98.6 fL (80-94); Mean Platelet Vol. 9.5 fl (6.2-12.0); Monocyte# 0.73 X10^3/uL; Monocyte% 5.7 % (0-10); Neutrophil # 10.96 X10^3/uL (2.7-7.7); Neutrophil % 86.1 % (47-70); Platelet Count 266 K/mm3 (150-450); RBC Distribution Width CV 18.1 % (11.6-14.6); RBC Distribution Width SD 62.5 fl (35.1-43.9); Red Blood Count 3.45 M/mm3 (4.6-6.2); White Blood Count 12.7 K/mm3 (4.4-11.0)
[2018-05-15 20:30] LABS: POSITIVE COUNT NO; POSITIVE DIFFERENTIAL NO; POSITIVE MORPHOLOGY NO
[2018-05-15 20:39] LABS: Anion Gap 9 (5-15); BUN 42 mg/dL (7-18); Calcium,Total 9.4 mg/dL (8.5-10.1); Chloride 99 mmol/L (98-107); EST Glomerular Filtration Rate 50 mL/min (>60); Est Glom Filt Rate - Afr Amer 60 mL/min (>60); Estimated Creatinine Clearance 46.87 ml/min; Glucose 151 mg/dL (74-106); Potassium 4.3 mmol/L (3.5-5.1); Sodium Level 133 mmol/L (136-145)
[2018-05-15 20:51] LABS: Allen Test POS; Base Excess 1 mmol/L (-2 to +2); Blood Gas Specimen Type ART; EPAP 8; FI02 30; IPAP 16; PO2 89 mmHG (75-100); RR 12; SITE L Radial; SO2 98 % (95-99); Time Given 2042; Total Carbon Dioxide 26 mmol/L; pCO2 33.8 mmHg (35-45); pH 7.48 (7.35-7.45)
--- NOTE | 2018-05-15 21:46 | HP.PCM_ITS ---
Problem List (1) Diastolic CHF Status: Acute Qualifiers: (2) HLD (hyperlipidemia) Status: Chronic Qualifiers: (3) HTN (hypertension) Status: Chronic Qualifiers: (4) PAD (peripheral artery disease) Status: Chronic (5) CAD (coronary artery disease) Status: Chronic Qualifiers: (6) COPD (chronic obstructive pulmonary disease) Status: Chronic Qualifiers: (7) Tobacco dependence Status: Chronic (8) CKD (chronic kidney disease) Status: Chronic Qualifiers: (9) Respiratory failure with hypoxia Status: Acute (10) BPH (benign prostatic hyperplasia) Status: Chronic Qualifiers: History of Present Illness Date of Admission: 05/15/18 Chief Complaint: shortness of breath The patient is a 67 year old M [] The patient is a 67 year old M with a history of diastolic CHF, pulmonary hypertension, COPD, CAD status post prior CABG, nicotine abuse, and BPH with a chronic Charles catheter, who presented to the ER with increased shortness of breath and stating that he felt like he was filling up with fluid. He had lower extremity edema, paroxysmal nocturnal dyspnea and orthopnea, chest x-ray consistent with congestive heart failure. Recent stress test was normal and ejection fraction estimated to be 50%. Despite his discharge home on Tuesday he returns to us in respiratory distress. He has improved markedly with 80mg IV lasix and BIPAP therapy. He has pleural effusions on CXR and BNTP is markedly elevated. He will be admitted to the PCU with CHF exacerbation. Past Medical History Past Medical History (Chronic Problems): Chronic Problems HLD (hyperlipidemia) (Chronic) HTN (hypertension) (Chronic) PAD (peripheral artery disease) (Chronic) CAD (coronary artery disease) (Chronic) COPD (chronic obstructive pulmonary disease) (Chronic) Tobacco dependence (Chronic) CKD (chronic kidney disease) (Chronic) Leukocytosis (Chronic) Anemia (Chronic) BPH (benign prostatic hyperplasia) (Chronic) Allergies irbesartan [From Avapro] Adverse Reaction (Verified 05/15/18 20:06) Other zolpidem [From Ambien] Adverse Reaction (Verified 05/15/18 20:06) Other Home Medications: Ambulatory Orders Medication Instructions Recorded Aspirin [Aspirin, Baby] 81 mg PO DAILY@0800 01/28/18 Clopidogrel Bisulfate [Plavix] 75 mg PO DAILY 01/28/18 Ropinirole HCl [Requip] 1 mg PO QHS 01/28/18 Rosuvastatin Calcium [Crestor] 40 mg PO QHS 01/28/18 Tamsulosin HCl [Flomax] 0.4 mg PO BID 01/28/18 Finasteride [Proscar] 5 mg PO DAILY 04/08/18 Bumetanide 2 mg PO BID #60 tab 04/10/18 Albuterol Aerosols [Ventolin 2.5 mg INHALATION Q4H PRN 05/10/18 Aerosols] Amlodipine [Norvasc] 5 mg PO DAILY 05/10/18 Ferrous Sulfate 325 mg PO BIDCM 05/10/18 Sertraline HCl [Zoloft] 50 mg PO DAILY 05/10/18 Carvedilol [Coreg (Beta Kadi)] 25 mg PO BID #60 tab 05/13/18 Isosorbide Mononitrate [Imdur] 30 mg PO DAILY #30 tab 05/13/18 Prednisone 10 mg PO UD #22 tab 05/13/18 hydrALAZINE [Apresoline] 75 mg PO TID #100 tab 05/13/18 Surgical History: coronary bypass surgery, tonsillectomy Smoking Status: Light Smoker (<10/day) - *Family History Maternal History Items: No pertinent history Paternal History Items: No pertinent history Review of Systems Constitutional: Denies: Chills, Fever, Weight Change HEENT: Denies: Head Aches, Sinus Congestion, Sinus Drainage Cardiovascular: Denies: Chest Pain, Palpitations Respiratory: Reports: Shortness of breath at rest. Denies: Cough, Sputum production Gastrointestinal: Denies: Abdominal Pain, Nausea, Vomiting Genitourinary: Reports: Retention. Denies: Dysuria Musculoskeletal: Denies: Joint Pain, Joint Tenderness Skin: Denies: Rash, Wounds Neurological: Denies: Numbness, Tingling, Focal weakness Psychiatric: Denies: Anxiety, Depression, Homicidal Ideations, Suicidal Ideations Hematologic/ Lymphatic: Denies: Easy Bruising, Easy Bleeding VTE Information - Inpt Only VTE Present on Admission: No VTE Mechan Device Prophylaxis: None VTE Pharm Prophylaxis ordered?: Yes - Physical Exam General: Alert, Oriented x3, Cooperative HEENT: Atraumatic, Normocephalic Neck: Supple Lungs: No rhonchi, No wheeze, No rales, Diminished Cardiovascular: Regular rate, Regular Rhythm, Normal S1, Normal S2, No murmurs Abdomen: Bowel Sounds Present, Soft, Non Tender, Obese Extremities: Capillary Refill Less than 3 Seconds, Edema - 1+ lower ext edema Skin: No rashes Musculoskeletal: No Tenderness to Palpation of Joints or Extremities Neurological: Neuro grossly intact Psych/Mental Status: Normal Affect, Appropriate Vital Signs Temp Pulse Resp BP Pulse Ox 98.4 F 68 20 H 157/62 H 98 05/15/18 21:14 05/15/18 21:14 05/15/18 21:14 05/15/18 21:14 05/15/18 21:14 Oxygen Delivery Method Bi-pap Weight: 199 lb 15.348 oz Body Mass Index (BMI) 30.4 Finger Stick Blood Glucose 200 Intake and Output for Last 24 Hours 05/13/18 05/14/18 05/15/18 23:59 23:59 23:59 Output Total 200 / 200 Balance -200 / -200 Laboratory Tests Past 24 Hrs 05/15/18 05/15/18 05/15/18 20:10 20:10 20:10 WBC 12.7 H RBC 3.45 L Hgb 10.7 L Hct 34.0 L MCV 98.6 H MCH 31.0 MCHC 31.5 L RDW 18.1 H RDW Differential 62.5 H Plt Count 266 MPV 9.5 Immature Gran % (Auto) 0.900 Neut % (Auto) 86.1 H Lymph % (Auto) 7.2 L [place] % (Auto) 5.7 Eos % (Auto) 0.0 Baso % (Auto) 0.1 Absolute Neuts (auto) 11.0 H Absolute Lymphs (auto) 0.92 Total Counted Not Reportable Specimen Type Sample Site pH Bicarbonate Actual POC Total CO2 Base Excess O2 Saturation O2 % ABG pCO2 ABG pO2 Clay Test Respiration Rate O2 Delivery Device EPAP IPAP Blood Gas Notified Whom Blood Gas Notified Time Sodium 133 L Potassium 4.3 Chloride 99 Carbon Dioxide 25.0 Anion Gap 9 BUN 42 H Creatinine 1.50 H Estim Creat Clear Calc 46.87 Est GFR (MDRD) Af Amer 60 Est GFR (MDRD) Non-Af 50 L BUN/Creatinine Ratio 28.0 H Glucose 151 H Calcium 9.4 Troponin I < 0.015 B-Natriuretic Peptide 1934.6 H 05/15/18 20:46 WBC RBC Hgb Hct MCV MCH MCHC RDW RDW Differential Plt Count MPV Immature Gran % (Auto) Neut % (Auto) Lymph % (Auto) [place] % (Auto) Eos % (Auto) Baso % (Auto) Absolute Neuts (auto) Absolute Lymphs (auto) Total Counted Specimen Type ART Sample Site L Radial pH 7.48 H Bicarbonate Actual 25.0 POC Total CO2 26 Base Excess 1 O2 Saturation 98 O2 % 30 ABG pCO2 33.8 L ABG pO2 89 Clay Test POS Respiration Rate 12 O2 Delivery Device Bi / C PAP EPAP 8 IPAP 16 Blood Gas Notified Whom ED Blood Gas Notified Time 2041 Sodium Potassium Chloride Carbon Dioxide Anion Gap BUN Creatinine Estim Creat Clear Calc Est GFR (MDRD) Af Amer Est GFR (MDRD) Non-Af BUN/Creatinine Ratio Glucose Calcium Troponin I B-Natriuretic Peptide Assessment/Plan All Active Problems DAI (acute kidney injury) (Acute) Pneumonia (Acute) UTI (urinary tract infection) (Resolved) Sepsis (Resolved) Acute respiratory failure with hypoxia (Acute) Diastolic CHF (Acute) Respiratory failure with hypoxia (Acute) Chronic Problems HLD (hyperlipidemia) (Chronic) HTN (hypertension) (Chronic) PAD (peripheral artery disease) (Chronic) CAD (coronary artery disease) (Chronic) COPD (chronic obstructive pulmonary disease) (Chronic) Tobacco dependence (Chronic) CKD (chronic kidney disease) (Chronic) Leukocytosis (Chronic) Anemia (Chronic) BPH (benign prostatic hyperplasia) (Chronic) Plan - admit to PCU - continue lasix 80mg repeat in am - CBC, BMP and BNTP in am - BIPAP overnight - consider consult cardiology in am - if improved, testing has been done recently and perhaps the patient can be discharged home - continue routine home medications - LMWH for DVT proiphylaxis Code Visit Inpatient E&M: 62398 Init Hosp L3
--- NOTE | 2018-05-15 22:23 | NURSING ---
Spoke with Dae Fernandez [employer] APPLICATIONS MANAGER at 2014 and informed that PCU was ready for patient to be transferred. RN downstairs called at this time 2023 and expressed they switched him from Bipap to 4LNC and felt he was able to tolerate that well.
--- NOTE | 2018-05-15 22:32 | NURSING ---
TOOK THE PT OFF HIS BIPAP AND ON 4 LITERS. SO FAR THE PT HAS BEEN TOLERATING WELL.
[2018-05-15] MEDS: hydrALAZINE 25 MG Tablet 75 MG PO (23:11)
[2018-05-15] MEDS: Pramipexole Di-HCl 0.5 MG Tablet PO (23:12)
[2018-05-15] MEDS: Tamsulosin HCl 0.4 MG Capsule PO (23:12)
[2018-05-15] MEDS: Atorvastatin Calcium 80 MG Tablet PO (23:12)
[2018-05-15] MEDS: Carvedilol 25 MG Tablet PO (23:12)
[2018-05-16] VITALS (23 sets, daily range): BP systolic 145–172; BP diastolic 61–73; PULSE 60–89; RESP 12–24; TEMP 36.9–37.3; O2SAT 92–98
--- NOTE | 2018-05-16 00:22 | ED.DCSUM_ITS ---
- ER Visit Summary Date of Service: 05/16/18 Chief Complaint: Shortness of breath History of Present Illness: The patient is a 67 M presenting for evaluation secondary shortness breath. Patient has an underlying history of COPD and CHF was actually just recently admitted to the hospital secondary to a CHF exacerbation. Patient reports that he had a relatively sudden onset of worsening shortness of breath today. Additional history was unable to be obtained due to the patient's level of shortness of breath. Physical Examination: Well-nourished male visibly in respiratory distress with a respiratory rate in the 30s and very coarse sounding lungs. Airways patent, decreased air movement is noted. Strong radial pulses bilaterally symmetric. Head normocephalic. Neck was supple. Abdomen soft nontender. Extremities show 2+ bilaterally symmetric pitting edema. Skin was normal color. Patient was alert and oriented. Test Results: Chest x-ray demonstrates CHF. EKG demonstrates a first-degree AV block with a rate of [address] segments and nonspecific T- wave changes. Lab work shows negative troponin and a positive BNP. Emergency Department Course and Treatment: Patient presented for evaluation secondary to significant shortness breath. He was placed on BiPAP he was immediately given Lasix nitro and was placed on groundwater monitoring technician. Patient's workup as noted above shows evidence of congestive heart failure. Patient will be admitted under the hospitalist. He did have improvement of his respiratory status on repeat evaluation. Disposition: Admission Impression: 1. Congestive heart failure 2. Hypoxic respiratory failure Critical care time 35 minutes This note was generated with [employer] dictation software. It may contain incorrect words, spelling, and punctuation that were not noted in review of the chart prior to signing ED Disposition - Plan for ED Patient: Disposition: Acute Care Hospital [facility] Chief Complaint: Shortness of Breath
[2018-05-16 02:58] LABS: Absolute Lymphocyte Count 1.46 X10^3/ul (0.83-4.51); Absolute Neutrophil Count 8.9 X10^3/uL (2.0-7.7); Basophil# 0.01 X10^3/uL; Basophil% 0.1 % (0-1); Eosinophil# 0.01 X10^3/uL; Eosinophils% 0.1 % (0-5); Hematocrit 32.7 % (40-54); Lymphocyte # 1.46 X10^3/ul (4.0); Lymphocyte % 12.4 % (19-41); Mean Corp Hgb Conc 30.6 g/gl (32-36); Mean Corpuscular Hgb 30.4 pg (27.0-32.0); Mean Corpuscular Volume 99.4 fL (80-94); Mean Platelet Vol. 9.4 fl (6.2-12.0); Monocyte# 1.25 X10^3/uL; Monocyte% 10.7 % (0-10); Neutrophil # 8.94 X10^3/uL (2.7-7.7); Neutrophil % 76.2 % (47-70); Platelet Count 245 K/mm3 (150-450); RBC Distribution Width CV 18.5 % (11.6-14.6); Red Blood Count 3.29 M/mm3 (4.6-6.2); White Blood Count 11.7 K/mm3 (4.4-11.0)
[2018-05-16 03:02] LABS: POSITIVE COUNT NO; POSITIVE DIFFERENTIAL NO; POSITIVE MORPHOLOGY NO
[2018-05-16 03:17] LABS: Anion Gap 11 (5-15); BUN 43 mg/dL (7-18); BUN/Creat Ratio 28.7 RATIO (10-20); Calcium,Total 8.5 mg/dL (8.5-10.1); Chloride 100 mmol/L (98-107); EST Glomerular Filtration Rate 50 mL/min (>60); Est Glom Filt Rate - Afr Amer 60 mL/min (>60); Estimated Creatinine Clearance 46.87 ml/min; Glucose 140 mg/dL (74-106); Potassium 3.6 mmol/L (3.5-5.1); Sodium Level 140 mmol/L (136-145)
[2018-05-16 03:28] LABS: BNP,B-Type NATRIURETIC PEPTIDE 1952.9 pg/mL (0-100)
[2018-05-16] MEDS: Furosemide 100 MG/10 ML Vial 80 MG IV (04:51)
[2018-05-16] MEDS: 0.9% NaCl Peripheral Flush Adult/Peds IV ×4 (04:52→21:19)
[2018-05-16] MEDS: hydrALAZINE 25 MG Tablet 75 MG PO ×2 (05:57→13:55)
--- NOTE | 2018-05-16 08:08 | PCM.PROGNOTE ---
Subjective: Chief complaint: Follow-up after admission for acute on chronic diastolic CHF and acute hypoxic respiratory failure. Patient seen and examined. No acute events overnight. He is on BiPAP. He reported minimal improvement of his shortness of breath. He complains of dry cough. No chest pain. He was discharged from the hospital 3 days ago and he was admitted for the same reason. He is afebrile, blood pressure is elevated, pulse ox is 97% on BiPAP. - Physical Exam General: Alert, Oriented x3, Cooperative, - - Moderately short of breath. HEENT: Atraumatic, PERRLA, EOMI, Normocephalic Oral: Moist Mucosa, No Gingival or Mucosal Lesions/ Ulcerations Neck: Supple, No JVD, Negative Carotid Bruits, Trachea Midline, Thyroid Normal Size and Texture Lungs: No wheeze, Diminished, Rales, Rhonchi, Short of Breath, - - Decreased breath sounds bilateral, bilateral basal crackles, rhonchi. Cardiovascular: Regular rate, Regular Rhythm, Normal S1, Normal S2, PMI Normal Abdomen: Bowel Sounds Present, Soft, Non Tender, Non-Distended, No Hepato-splenomegaly Extremities: No clubbing, No cyanosis, Edema - + Edema. Skin: No rashes, No breakdown Lymphatic: No Cervical, Supraclavicular, or Inguinal Adenopathy Neurological: Cranial nerves II-XII grossly intact, Motor Exam 5/5 strength throughout Psych/Mental Status: Normal Affect, Appropriate, Alert and oriented to time, place, person, mood and affect Vital Signs Temp Pulse Resp BP Pulse Ox 99.1 F 66 24 H 172/64 H 97 05/16/18 04:19 05/16/18 06:56 05/16/18 05:30 05/16/18 05:57 05/16/18 05:30 Oxygen Flow Rate (L/min) 4 Oxygen Delivery Method Nasal Cannula Weight: 192 lb 7.417 oz Body Mass Index (BMI) 29.2 Intake and Output for Last 24 Hours 05/14/18 05/15/18 05/16/18 23:59 23:59 23:59 Intake Total 120 / 120 Output Total 750 / 950 525 / 525 Balance -630 / -830 -525 / -525 Laboratory Tests Past 24 Hrs 05/15/18 05/16/18 05/16/18 23:10 02:40 02:40 WBC 11.7 H RBC 3.29 L Hgb 10.0 L Hct 32.7 L MCV 99.4 H MCH 30.4 MCHC 30.6 L RDW 18.5 H RDW Differential 64.0 H Plt Count 245 MPV 9.4 Immature Gran % (Auto) 0.500 Neut % (Auto) 76.2 H Lymph % (Auto) 12.4 L [place] % (Auto) 10.7 H Eos % (Auto) 0.1 Baso % (Auto) 0.1 Absolute Neuts (auto) 8.9 H Absolute Lymphs (auto) 1.46 Total Counted Not Reportable Sodium 140 Potassium 3.6 Chloride 100 Carbon Dioxide 29.0 Anion Gap 11 BUN 43 H Creatinine 1.50 H Estim Creat Clear Calc 46.87 Est GFR (MDRD) Af Amer 60 Est GFR (MDRD) Non-Af 50 L BUN/Creatinine Ratio 28.7 H Glucose 140 H Calcium 8.5 Troponin I < 0.015 B-Natriuretic Peptide 05/16/18 05/16/18 02:40 02:40 WBC RBC Hgb Hct MCV MCH MCHC RDW RDW Differential Plt Count MPV Immature Gran % (Auto) Neut % (Auto) Lymph % (Auto) [place] % (Auto) Eos % (Auto) Baso % (Auto) Absolute Neuts (auto) Absolute Lymphs (auto) Total Counted Sodium Potassium Chloride Carbon Dioxide Anion Gap BUN Creatinine Estim Creat Clear Calc Est GFR (MDRD) Af Amer Est GFR (MDRD) Non-Af BUN/Creatinine Ratio Glucose Calcium Troponin I < 0.015 B-Natriuretic Peptide 1952.9 H Clinical Impression(s) from Imaging Studies Chest X-Ray 05/15/18 20:08 IMPRESSION: COPD with superimposed mild pulmonary congestion with bilateral effusions and bibasilar atelectasis Electronically Signed: Pb Lancaster MD at 20:32 EDT , Service support , Medical Necessity - Tobacco Use Smoking Status: Current some day smoker Tobacco Use: Cigarettes Assessment/Plan All Active Problems Acute respiratory failure with hypoxia (Acute) Diastolic CHF (Acute) This is a 67-year-old male patient admitted because of worsening shortness of breath and he was found to have acute on chronic diastolic CHF complicated by acute hypoxic respiratory failure. #1 acute on chronic diastolic CHF: He is on IV Lasix and p.o. Bumex. Continued on coronary, hydralazine and isosorbide mononitrate. EKG revealed sinus rhythm, prolonged QTC, no acute ischemic changes. Troponin is negative. BNP is elevated, more than his baseline. Chest x-ray revealed bilateral pulmonary vascular congestion. Patient was discharged from the hospital 2 days ago and he was admitted for the same problem. On May 11, 2018, he underwent stress echocardiogram that revealed ejection fraction 60 %, normal, adequate dobutamine echocardiogram which was negative for ischemia by EKG and echocardiographic criteria. During last admission, he was seen by cardiology and mentioned that if the patient determined because of recurrent CHF symptoms, he might need to go for left and right heart catheterization according to Dr. brewster. Plan: Change Lasix to 40 mg IV every 8 hours, DC oral Bumex, repeat BMP tomorrow morning, and put up a chart, fluid restriction to less than 1500 cc daily, incentives parameter, cardiology consult, PT OT evaluation #2 acute hypoxic respiratory failure: Secondary to above. Patient mentioned that he never been on oxygen at home. At this time, is on BiPAP. ABG from yesterday revealed pH of 7.48, PCO2 of 33 and PO2 of 59. Plan: Bronchodilators, chest physical therapy, incentives parameter, IV diuresis, continue BiPAP at this time. #3 CAD status post CABG: As above, continue aspirin, statins, Coreg, Plavix and isosorbide mononitrate. #4 COPD: Start DuoNeb every 6 hours, continue albuterol as needed, encourage incentive spirometer, chest physiotherapy, DC prednisone. #5 stage III chronic kidney disease: Baseline creatinine is around 1.5-1.8 mg/dL. Admission creatinine is 1.50, stable at baseline. Plan to monitor kidney function while on IV Lasix for diuresis. #6 hypertension: Blood pressure stable, continue Norvasc, Coreg, hydralazine and isosorbide mononitrate. #7 hyperlipidemia: Continue statins. #8 benign prostatic hypertrophy: Continue Flomax. #9 DVT prophylaxis: DC subcu Lovenox, start subcu heparin. This note was generated with [employer] dictation software. It may contain incorrect words, spelling, and punctuation that were not noted in checking the note before signing. Code Visit Inpatient E&M: 77792 Subs Hosp L3
--- NOTE | 2018-05-16 08:11 | PN_ITS ---
Subjective: Chief complaint: Follow-up after admission for acute on chronic diastolic CHF and acute hypoxic respiratory failure. Patient seen and examined. No acute events overnight. He is on BiPAP. He reported minimal improvement of his shortness of breath. He complains of dry cough. No chest pain. He was discharged from the hospital 3 days ago and he was admitted for the same reason. He is afebrile, blood pressure is elevated, pulse ox is 97% on BiPAP. - Physical Exam General: Alert, Oriented x3, Cooperative, - - Moderately short of breath. HEENT: Atraumatic, PERRLA, EOMI, Normocephalic Oral: Moist Mucosa, No Gingival or Mucosal Lesions/ Ulcerations Neck: Supple, No JVD, Negative Carotid Bruits, Trachea Midline, Thyroid Normal Size and Texture Lungs: No wheeze, Diminished, Rales, Rhonchi, Short of Breath, - - Decreased breath sounds bilateral, bilateral basal crackles, rhonchi. Cardiovascular: Regular rate, Regular Rhythm, Normal S1, Normal S2, PMI Normal Abdomen: Bowel Sounds Present, Soft, Non Tender, Non-Distended, No Hepato- splenomegaly Extremities: No clubbing, No cyanosis, Edema - + Edema. Skin: No rashes, No breakdown Lymphatic: No Cervical, Supraclavicular, or Inguinal Adenopathy Neurological: Cranial nerves II-XII grossly intact, Motor Exam 5/5 strength throughout Psych/Mental Status: Normal Affect, Appropriate, Alert and oriented to time, place, person, mood and affect Vital Signs Temp Pulse Resp BP Pulse Ox 99.1 F 66 24 H 172/64 H 97 05/16/18 04:19 05/16/18 06:56 05/16/18 05:30 05/16/18 05:57 05/16/18 05:30 Oxygen Flow Rate (L/min) 4 Oxygen Delivery Method Nasal Cannula Weight: 192 lb 7.417 oz Body Mass Index (BMI) 29.2 Intake and Output for Last 24 Hours 05/14/18 05/15/18 05/16/18 23:59 23:59 23:59 Intake Total 120 / 120 Output Total 750 / 950 525 / 525 Balance -630 / -830 -525 / -525 Laboratory Tests Past 24 Hrs 05/15/18 05/16/18 05/16/18 23:10 02:40 02:40 WBC 11.7 H RBC 3.29 L Hgb 10.0 L Hct 32.7 L MCV 99.4 H MCH 30.4 MCHC 30.6 L RDW 18.5 H RDW Differential 64.0 H Plt Count 245 MPV 9.4 Immature Gran % (Auto) 0.500 Neut % (Auto) 76.2 H Lymph % (Auto) 12.4 L [place] % (Auto) 10.7 H Eos % (Auto) 0.1 Baso % (Auto) 0.1 Absolute Neuts (auto) 8.9 H Absolute Lymphs (auto) 1.46 Total Counted Not Reportable Sodium 140 Potassium 3.6 Chloride 100 Carbon Dioxide 29.0 Anion Gap 11 BUN 43 H Creatinine 1.50 H Estim Creat Clear Calc 46.87 Est GFR (MDRD) Af Amer 60 Est GFR (MDRD) Non-Af 50 L BUN/Creatinine Ratio 28.7 H Glucose 140 H Calcium 8.5 Troponin I < 0.015 B-Natriuretic Peptide 05/16/18 05/16/18 02:40 02:40 WBC RBC Hgb Hct MCV MCH MCHC RDW RDW Differential Plt Count MPV Immature Gran % (Auto) Neut % (Auto) Lymph % (Auto) [place] % (Auto) Eos % (Auto) Baso % (Auto) Absolute Neuts (auto) Absolute Lymphs (auto) Total Counted Sodium Potassium Chloride Carbon Dioxide Anion Gap BUN Creatinine Estim Creat Clear Calc Est GFR (MDRD) Af Amer Est GFR (MDRD) Non-Af BUN/Creatinine Ratio Glucose Calcium Troponin I < 0.015 B-Natriuretic Peptide 1952.9 H Clinical Impression(s) from Imaging Studies Chest X-Ray 05/15/18 20:08 IMPRESSION: COPD with superimposed mild pulmonary congestion with bilateral effusions and bibasilar atelectasis Electronically Signed: Pb Lancaster MD at 20:32 EDT , Service support , Medical Necessity - Tobacco Use Smoking Status: Current some day smoker Tobacco Use: Cigarettes Assessment/Plan All Active Problems Acute respiratory failure with hypoxia (Acute) Diastolic CHF (Acute) This is a 67-year-old male patient admitted because of worsening shortness of breath and he was found to have acute on chronic diastolic CHF complicated by acute hypoxic respiratory failure. #1 acute on chronic diastolic CHF: He is on IV Lasix and p.o. Bumex. Continued on coronary, hydralazine and isosorbide mononitrate. EKG revealed sinus rhythm , prolonged QTC, no acute ischemic changes. Troponin is negative. BNP is elevated, more than his baseline. Chest x-ray revealed bilateral pulmonary vascular congestion. Patient was discharged from the hospital 2 days ago and he was admitted for the same problem. On May 11, 2018, he underwent stress echocardiogram that revealed ejection fraction 60 %, normal, adequate dobutamine echocardiogram which was negative for ischemia by EKG and echocardiographic criteria. During last admission, he was seen by cardiology and mentioned that if the patient determined because of recurrent CHF symptoms, he might need to go for left and right heart catheterization according to Dr. brewster. Plan: Change Lasix to 40 mg IV every 8 hours, DC oral Bumex, repeat BMP tomorrow morning, and put up a chart, fluid restriction to less than 1500 cc daily, incentives parameter, cardiology consult, PT OT evaluation #2 acute hypoxic respiratory failure: Secondary to above. Patient mentioned that he never been on oxygen at home. At this time, is on BiPAP. ABG from yesterday revealed pH of 7.48, PCO2 of 33 and PO2 of 59. Plan: Bronchodilators , chest physical therapy, incentives parameter, IV diuresis, continue BiPAP at this time. #3 CAD status post CABG: As above, continue aspirin, statins, Coreg, Plavix and isosorbide mononitrate. #4 COPD: Start DuoNeb every 6 hours, continue albuterol as needed, encourage incentive spirometer, chest physiotherapy, DC prednisone. #5 stage III chronic kidney disease: Baseline creatinine is around 1.5-1.8 mg/ dL. Admission creatinine is 1.50, stable at baseline. Plan to monitor kidney function while on IV Lasix for diuresis. #6 hypertension: Blood pressure stable, continue Norvasc, Coreg, hydralazine and isosorbide mononitrate. #7 hyperlipidemia: Continue statins. #8 benign prostatic hypertrophy: Continue Flomax. #9 DVT prophylaxis: DC subcu Lovenox, start subcu heparin. This note was generated with [employer] dictation software. It may contain incorrect words, spelling, and punctuation that were not noted in checking the note before signing. Code Visit Inpatient E&M: 34514 Subs Hosp L3
[2018-05-16] MEDS: Ferrous Sulfate 325 MG Tablet PO ×2 (09:02→16:01)
[2018-05-16] MEDS: Aspirin E.C. 81 MG Tablet PO (09:03)
[2018-05-16] MEDS: Isosorbide Mononitrate 30 MG Tablet PO (09:03)
[2018-05-16] MEDS: Tamsulosin HCl 0.4 MG Capsule PO ×2 (09:03→21:17)
[2018-05-16] MEDS: Carvedilol 25 MG Tablet PO ×2 (09:03→21:17)
[2018-05-16] MEDS: amLODIPine 5 MG Tablet PO ×2 (09:03→16:01)
[2018-05-16] MEDS: Sertraline 50 MG Tablet PO (09:04)
[2018-05-16] MEDS: Clopidogrel Bisulfate 75 MG Tablet PO (09:04)
[2018-05-16] MEDS: Finasteride 5 MG Tablet PO (09:04)
[2018-05-16] MEDS: Enoxaparin 40 MG/0.4 ML Syringe SC (09:07)
[2018-05-16 12:36] LABS: Prothrombin Time (Protime)PT. 13.5 SECONDS (11.7-14.9)
[2018-05-16] MEDS: Ipratropium/Albuterol Sulfate 3 ML AMPUL.NEB INHALATION ×2 (13:13→19:44)
--- NOTE | 2018-05-16 13:48 | CASEMGMT ---
RAYMOND CM Readmission review. Readmit date 05/15/18 Dx: CHF exacerbation Recent admissions: 05/01/18-05/04/18. Dx: Pneumonia and dc'd home independently. 05/10/18-05/13/18 Dx: Acute respiratory failure w/hypoxia, CHF and dc'd home independently. Pt refused [facility] and [facility] referrals. Intro role of CM to patient and his . and patient state he was independent, used cane prior to admission. ADL's were independent also. can assist if needed. One story home, no difficulty getting prescriptions or f/u appointments. Pt continues to c/o SOB at home, especially after waking. Pt states has been using his brother's bipap and unsure of settings and if pt is utilizing correctly. Pt seems very anxious about being SOB and oxygen sats are good but pt c/o SOB. Pt states that he was not weighing self daily after last discharge because [facility] and they don't have a scale there. Pt states was trying to restrict fluids but unsure how accurate he was. Pt also states following 'low sodium' diet but also reports eating a cheeseburger. Dietary states will do further education. Pt has not qualified for home oxygen on previous admissions, CM to follow for this admission. Pt had quit smoking 4 months ago but has been smoking some, due to stress. Per , 'there is a lot going on right now, we are moving soon and we also have a dog who is due to give soon.' CM to follow for any further discharge planning/needs. -DC PLAN: TBD
--- NOTE | 2018-05-16 13:55 | PCM.CONS.C ---
Problem List (1) Diastolic CHF Status: Acute Qualifiers: (2) CAD (coronary artery disease) Status: Chronic Qualifiers: (3) HLD (hyperlipidemia) Status: Chronic Qualifiers: (4) HTN (hypertension) Status: Chronic Qualifiers: (5) COPD (chronic obstructive pulmonary disease) Status: Chronic Qualifiers: (6) CKD (chronic kidney disease) Status: Chronic Qualifiers: Reason for Consult Date of Consultation: 05/16/18 History of Present Illness: The patient is a 67 year old white male with a past history which has included diastolic mediated CHF, CAD, hyperlipidemia, hypertension, COPD, chronic renal insufficiency who is referred for evaluation of recurrent shortness of breath/dyspnea with acute on chronic diastolic mediated CHF. He was recently evaluated at [facility] on 04/30/2018 by Chepe Barrientos MD of the [facility]. During his hospitalization he underwent noninvasive evaluation which included a transthoracic echocardiogram. According to the report the left ventricle was thought to be normal with an LVEF 55% with decreased diastolic compliance, the left atrium was moderately enlarged, there was mild MR and trivial TR and an estimated RV systolic pressure 42 mmHg. He also underwent a dobutamine stress echocardiogram. According to the report he had a normal adequate dobutamine echocardiogram which was considered negative for ischemia by ECG and echocardiographic criteria. He was treated medically and eventually released home. However he states that at home he was noted to have continued shortness of breath which progressed. He attempted to use his CPAP device but states it did not work well. Thus he presented back to the hospital. He has denied any associated chest discomfort, nausea, emesis, or diaphoresis. He does admit to worsening lower extremity peripheral pitting edema involving the calves, ankles, and feet. He denies any obvious palpitations. There has been no near syncope or syncope. Since being back at [facility] he has been placed in the PCU. He is receiving medical management with IV diuretics. He is receiving a BiPAP type device at this time. His cardiac enzymes have been negative thus far. His BNP level was elevated at 1952.9. His ECG in the hospital demonstrated sinus rhythm/sinus arrhythmia with a nonspecific T-wave abnormality. His chest x-ray suggested findings of increased pulmonary vascularity/pleural effusions. [] Past Medical History Allergies/Adverse Reactions: Allergies irbesartan [From Avapro] Adverse Reaction (Verified 05/15/18 20:06) Other zolpidem [From Ambien] Adverse Reaction (Verified 05/15/18 20:06) Other Home Medications: Ambulatory Orders Medication Instructions Recorded Aspirin [Aspirin, Baby] 81 mg PO DAILY@0800 01/28/18 Clopidogrel Bisulfate [Plavix] 75 mg PO DAILY 01/28/18 Ropinirole HCl [Requip] 1 mg PO QHS 01/28/18 Rosuvastatin Calcium [Crestor] 40 mg PO QHS 01/28/18 Tamsulosin HCl [Flomax] 0.4 mg PO BID 01/28/18 Finasteride [Proscar] 5 mg PO DAILY 04/08/18 Bumetanide 2 mg PO BID #60 tab 04/10/18 Albuterol Aerosols [Ventolin 2.5 mg INHALATION Q4H PRN 05/10/18 Aerosols] Amlodipine [Norvasc] 5 mg PO DAILY 05/10/18 Ferrous Sulfate 325 mg PO BIDCM 05/10/18 Sertraline HCl [Zoloft] 50 mg PO DAILY 05/10/18 Carvedilol [Coreg (Beta Kadi)] 25 mg PO BID #60 tab 05/13/18 Isosorbide Mononitrate [Imdur] 30 mg PO DAILY #30 tab 05/13/18 Prednisone 10 mg PO UD #22 tab 05/13/18 hydrALAZINE [Apresoline] 75 mg PO TID #100 tab 05/13/18 Past Medical History (Chronic Problems): Chronic Problems HLD (hyperlipidemia) (Chronic) HTN (hypertension) (Chronic) PAD (peripheral artery disease) (Chronic) CAD (coronary artery disease) (Chronic) COPD (chronic obstructive pulmonary disease) (Chronic) Tobacco dependence (Chronic) CKD (chronic kidney disease) (Chronic) Leukocytosis (Chronic) Anemia (Chronic) BPH (benign prostatic hyperplasia) (Chronic) Surgical History: coronary bypass surgery, tonsillectomy - *Family History Maternal History Items: No pertinent history Paternal History Items: No pertinent history Lives: Spouse/ Significant Other Smoking Status: Current some day smoker Tobacco Use: Cigarettes Alcohol: None Drugs: None Review of Systems - Review of Systems General: Denies: Fever, Night Sweats, Fatigue Cardiovascular: Reports: Shortness of Breath, Shortness of Breath at Rest, Orthopnea, PND, Peripheral Edema. Denies: Chest Discomfort, Palpitations, Lightheadedness, Dizziness, Near Syncope, Syncope Respiratory: Reports: Shortness of Breath. Denies: Cough, Sputum Production, Hemoptysis Gastrointestinal: Denies: Hematemesis, Hematochezia, Melena Genitourinary: Denies: Dysuria, Hematuria Skin: Denies: Rash Subjectve: This is a 67-year-old white male who appears short of breath and dyspneic. Objective: Vital Signs Temp Pulse Resp BP Pulse Ox 98.4 F 67 22 H 158/73 H 96 05/16/18 09:15 05/16/18 13:21 05/16/18 13:21 05/16/18 09:15 05/16/18 13:21 Oxygen Flow Rate (L/min) 2 Oxygen Delivery Method Nasal Cannula Weight: 192 lb 7.417 oz Body Mass Index (BMI) 29.2 Intake and Output for Last 24 Hours 05/14/18 05/15/18 05/16/18 23:59 23:59 23:59 Intake Total 120 / 120 230 / 230 Output Total 750 / 950 1225 / 1225 Balance -630 / -830 -995 / -995 General: Awake, Alert, Oriented x 3, Cooperative Neck: Supple, Good ROM, No JVD Lungs: Diminished Viral Bases Cardiovascular: Regular Rhythm, Normal S1, Normal S2 Abdomen: Bowel Sounds Present, Soft, Non Tender Extremities: Moderate RLE Edema, Moderate LLE Edema Neurological: No Focal Motor or Sensory Deficit Psych/Mental Status: Appropriate, Normal Affect 05/15/18 23:10: Troponin I < 0.015 05/16/18 02:40: WBC 11.7 H, RBC 3.29 L, Hgb 10.0 L, Hct 32.7 L, MCV 99.4 H, MCH 30.4, MCHC 30.6 L, RDW 18.5 H, RDW Differential 64.0 H, Plt Count 245, MPV 9.4, Immature Gran % (Auto) 0.500, Neut % (Auto) 76.2 H, Lymph % (Auto) 12.4 L, Cedar % (Auto) 10.7 H, Eos % (Auto) 0.1, Baso % (Auto) 0.1, Absolute Neuts (auto) 8.9 H, Total Counted Not Reportable 05/16/18 02:40: Sodium 140, Potassium 3.6, Chloride 100, Carbon Dioxide 29.0, Anion Gap 11, BUN 43 H, Creatinine 1.50 H, Est GFR (MDRD) Af Amer 60, Est GFR (MDRD) Non-Af 50 L, BUN/Creatinine Ratio 28.7 H, Glucose 140 H, Calcium 8.5 05/16/18 02:40: B-Natriuretic Peptide 1952.9 H 05/16/18 02:40: Troponin I < 0.015 05/16/18 12:05: PT 13.5, INR 1.0 Rhythm: Sinus rhythm EKG: As noted above ECHO: As noted above Stress Test: As noted above CXR: As noted above: Please see official report Assessment/Plan 1. Acute on chronic diastolic mediated CHF The patient presents with recurrent symptoms. At the present time he is undergone noninvasive evaluation. He is being treated medically with diuretic therapy and oxygen support. Based upon his previous cardiovascular evaluation by Dr. Barrientos there was a comment if the patient had ongoing concerns that he may need further definitive evaluation with right/left cardiac cath. However prior to the patient being able to proceed in such manner he will have to have improvement in his underlying respiratory status where he can lie supine to go through such a procedure. 2. CAD The patient states he has a history of underlying CAD. He has not required revascularization therapy. His cardiac enzymes are negative thus far and his ECG demonstrates no acute changes. However there is still concern as to whether this may be playing a role in his symptoms and objective findings. He will continue to be monitored and will undergo additional evaluation when he is able. In the meantime he should continue medical therapy as tolerated. 3. Hyperlipidemia The patient should continue risk factor evaluation and care. 4. Hypertension Continue antihypertensive therapy in order to optimize his cardiovascular risk factors, etc. and help with his acute on chronic diastolic mediated CHF. 5. COPD The patient has a history of underlying COPD. He states he has been evaluated in the hospital in the past by Dr. Caicedo pulmonology. He may need pulmonology input during his hospitalization to assist with his underlying pulmonary disease process, etc. 6. Chronic renal insufficiency He does have an elevated creatinine level. This would have to be taken into consideration with future invasive evaluation care including studies requiring IV contrast to minimize the risk of IV contrast related nephropathy. Comment: The patient is case was discussed with the patient and his family members present.
[2018-05-16] MEDS: Furosemide 40 MG/4 ML Vial IV ×2 (13:56→21:19)
[2018-05-16] MEDS: Heparin Injection (Vial) 5,000 UNIT/ML VIAL 5000 UNIT SC ×2 (14:00→21:18)
[2018-05-16 15:10] LABS: Allen Test POS; Base Excess 5 mmol/L (-2 to +2); Bicarbonate 28.2 mmol/L (22-26); Blood Gas Specimen Type ART; O2 Delivery Device Nasal Can; PO2 86 mmHG (75-100); SITE L Radial; SO2 98 % (95-99); Time Given 1510; Total Carbon Dioxide 29 mmol/L; pH 7.53 (7.35-7.45)
[2018-05-16] MEDS: Albuterol 2.5 MG/3 ML VIAL.NEB. INHALATION (17:27)
[2018-05-16] MEDS: LORazepam 2 MG/ML Syringe 1 MG IV (18:42)
[2018-05-16] MEDS: Atorvastatin Calcium 80 MG Tablet PO (21:17)
[2018-05-16] MEDS: Pramipexole Di-HCl 0.5 MG Tablet PO (21:17)
[2018-05-16] MEDS: hydrALAZINE 50 MG Tablet 100 MG PO (21:18)
[2018-05-17] VITALS (21 sets, daily range): BP systolic 136–156; BP diastolic 60–74; PULSE 60–84; RESP 12–23; TEMP 36.5–37.2; O2SAT 94–96
[2018-05-17] MEDS: Ipratropium/Albuterol Sulfate 3 ML AMPUL.NEB INHALATION ×4 (01:00→19:46)
[2018-05-17] MEDS: hydrALAZINE 50 MG Tablet 100 MG PO ×3 (05:14→21:43)
[2018-05-17] MEDS: Heparin Injection (Vial) 5,000 UNIT/ML VIAL 5000 UNIT SC ×3 (05:14→21:43)
[2018-05-17] MEDS: Furosemide 40 MG/4 ML Vial IV ×3 (05:14→21:43)
[2018-05-17] MEDS: 0.9% NaCl Peripheral Flush Adult/Peds IV ×2 (05:15→21:48)
--- NOTE | 2018-05-17 05:55 | EKG12_ITS ---
Test Reason : AM EKG Blood Pressure : / mmHG Vent. Rate : 063 BPM Atrial Rate : 063 BPM P-R Int : 176 ms QRS Dur : 098 ms QT Int : 470 ms P-R-T Axes : -03 081 141 degrees QTc Int : 480 ms Normal sinus rhythm with sinus arrhythmia Nonspecific ST and T wave abnormality Prolonged QT Abnormal ECG Confirmed by SANTANA MONTENEGRO, KEISHA ([id number]), editor in chief newspaper SHIRA HURD ([id number]) on 05/22/2018 3:55:47 PM Referred By: MARIOLA Confirmed By:KEISHA DILLON MD
[2018-05-17 06:05] LABS: Anion Gap 7 (5-15); BUN 45 mg/dL (7-18); BUN/Creat Ratio 27.6 RATIO (10-20); Calcium,Total 8.6 mg/dL (8.5-10.1); Chloride 105 mmol/L (98-107); Creatinine, Serum 1.63 mg/dL (0.70-1.30); EST Glomerular Filtration Rate 45 mL/min (>60); Est Glom Filt Rate - Afr Amer 55 mL/min (>60); Estimated Creatinine Clearance 43.13 ml/min; Glucose 111 mg/dL (74-106); Potassium 3.8 mmol/L (3.5-5.1); Sodium Level 143 mmol/L (136-145)
[2018-05-17 06:19] LABS: Absolute Lymphocyte Count 1.18 X10^3/ul (0.83-4.51); Absolute Neutrophil Count 9.3 X10^3/uL (2.0-7.7); Basophil# 0.01 X10^3/uL; Basophil% 0.1 % (0-1); Eosinophil# 0.11 X10^3/uL; Eosinophils% 0.9 % (0-5); Hematocrit 34.1 % (40-54); Hemoglobin 10.2 g/dl (13.0-16.5); Lymphocyte # 1.18 X10^3/ul (4.0); Lymphocyte % 10.2 % (19-41); Mean Corp Hgb Conc 29.9 g/gl (32-36); Mean Corpuscular Hgb 30.5 pg (27.0-32.0); Mean Corpuscular Volume 102.1 fL (80-94); Monocyte# 0.99 X10^3/uL; Monocyte% 8.5 % (0-10); Neutrophil # 9.27 X10^3/uL (2.7-7.7); Platelet Count 229 K/mm3 (150-450); RBC Distribution Width CV 18.3 % (11.6-14.6); RBC Distribution Width SD 65.9 fl (35.1-43.9); Red Blood Count 3.34 M/mm3 (4.6-6.2); White Blood Count 11.6 K/mm3 (4.4-11.0)
[2018-05-17 06:20] LABS: Differential Indicated SCAN CRITERIA MET; POSITIVE COUNT NO; POSITIVE DIFFERENTIAL NO; POSITIVE MORPHOLOGY YES
[2018-05-17 07:05] LABS: Anisocytosis 1+
[2018-05-17 07:06] LABS: Macrocytosis 1+; Polychromasia 1+
--- NOTE | 2018-05-17 07:54 | PCM.PROGNOTE ---
Subjective: Chief complaint: Follow-up after admission for acute on chronic diastolic CHF and acute hypoxic respiratory failure. Patient seen and examined. No acute events overnight. He reports minimal improvement of his symptoms. Still having orthopnea when he lays flat. Nursing staff report that he has been anxious while on BiPAP. No chest pain. Complains of cough without sputum production. Denies fever chills. He is afebrile, blood pressure and heart rate are stable. I took him off BiPAP nasal cannula. - Physical Exam General: Alert, Oriented x3, Cooperative, - - Moderately short of breath. HEENT: Atraumatic, PERRLA, EOMI, Normocephalic Oral: Moist Mucosa, No Gingival or Mucosal Lesions/ Ulcerations Neck: Supple, No JVD, Negative Carotid Bruits, Trachea Midline, Thyroid Normal Size and Texture Lungs: Clear to auscultation, No rhonchi, No wheeze, No rales, Diminished Cardiovascular: Regular rate, Regular Rhythm, Normal S1, Normal S2, PMI Normal Abdomen: Bowel Sounds Present, Soft, Non Tender, Non-Distended, No Hepato-splenomegaly Extremities: No clubbing, No cyanosis, Edema Skin: No rashes, No breakdown Lymphatic: No Cervical, Supraclavicular, or Inguinal Adenopathy Neurological: Cranial nerves II-XII grossly intact, Motor Exam 5/5 strength throughout Psych/Mental Status: Normal Affect, Appropriate, Alert and oriented to time, place, person, mood and affect Vital Signs Temp Pulse Resp BP Pulse Ox 99 F 65 21 H 154/66 H 95 05/17/18 02:51 05/17/18 07:11 05/17/18 07:10 05/17/18 05:14 05/17/18 07:10 Oxygen Flow Rate (L/min) 2 Oxygen Delivery Method Nasal Cannula Weight: 189 lb 13.088 oz Body Mass Index (BMI) 29.2 Intake and Output for Last 24 Hours 05/15/18 05/16/18 05/17/18 23:59 23:59 23:59 Intake Total 120 / 120 940 / 940 120 / 120 Output Total 750 / 950 1750 / 1750 400 / 400 Balance -630 / -830 -810 / -810 -280 / -280 Laboratory Tests Past 24 Hrs 05/16/18 05/16/18 05/17/18 12:05 15:03 05:25 WBC 11.6 H RBC 3.34 L Hgb 10.2 L Hct 34.1 L MCV 102.1 H MCH 30.5 MCHC 29.9 L RDW 18.3 H RDW Differential 65.9 H Plt Count 229 MPV 10.0 Immature Gran % (Auto) 0.300 Neut % (Auto) 80.0 H Lymph % (Auto) 10.2 L Tama % (Auto) 8.5 Eos % (Auto) 0.9 Baso % (Auto) 0.1 Absolute Neuts (auto) 9.3 H Absolute Lymphs (auto) 1.18 Total Counted Not Reportable Polychromasia 1+ Anisocytosis 1+ Macrocytosis 1+ PT 13.5 INR 1.0 Specimen Type ART Sample Site L Radial pH 7.53 H Bicarbonate Actual 28.2 H POC Total CO2 29 Base Excess 5 H O2 Saturation 98 ABG pCO2 34.0 L ABG pO2 86 Clay Test POS O2 Delivery Device Nasal Can Liter Flow 2.0 Blood Gas Notified Whom [facility] Blood Gas Notified Time 1510 Sodium Potassium Chloride Carbon Dioxide Anion Gap BUN Creatinine Estim Creat Clear Calc Est GFR (MDRD) Af Amer Est GFR (MDRD) Non-Af BUN/Creatinine Ratio Glucose Calcium 05/17/18 05:25 WBC RBC Hgb Hct MCV MCH MCHC RDW RDW Differential Plt Count MPV Immature Gran % (Auto) Neut % (Auto) Lymph % (Auto) Tama % (Auto) Eos % (Auto) Baso % (Auto) Absolute Neuts (auto) Absolute Lymphs (auto) Total Counted Polychromasia Anisocytosis Macrocytosis PT INR Specimen Type Sample Site pH Bicarbonate Actual POC Total CO2 Base Excess O2 Saturation ABG pCO2 ABG pO2 Clay Test O2 Delivery Device Liter Flow Blood Gas Notified Whom Blood Gas Notified Time Sodium 143 Potassium 3.8 Chloride 105 Carbon Dioxide 31.0 Anion Gap 7 BUN 45 H Creatinine 1.63 H Estim Creat Clear Calc 43.13 Est GFR (MDRD) Af Amer 55 L Est GFR (MDRD) Non-Af 45 L BUN/Creatinine Ratio 27.6 H Glucose 111 H Calcium 8.6 Medical Necessity - Tobacco Use Smoking Status: Current some day smoker Tobacco Use: Cigarettes Assessment/Plan All Active Problems Acute respiratory failure with hypoxia (Acute) Diastolic CHF (Acute) This is a 67-year-old male patient admitted because of worsening shortness of breath and he was found to have acute on chronic diastolic CHF complicated by acute hypoxic respiratory failure. #1 acute on chronic diastolic CHF: He is on IV Lasix. Oral Bumex discontinued. Continued on coronary, hydralazine and isosorbide mononitrate. EKG revealed sinus rhythm, prolonged QTC, no acute ischemic changes. Troponin is negative. His weight is down by 10 pounds. Reported minimal improvement, still having orthopnea. On May 11, 2018, he underwent stress echocardiogram that revealed ejection fraction 60 %, normal, adequate dobutamine echocardiogram which was negative for ischemia by EKG and echocardiographic criteria. Cardiology consulted, patient may need to go for cardiac catheterization. Plan to DC BiPAP, oxygen by nasal cannula, ambulate, repeat BMP tomorrow morning. #2 acute hypoxic respiratory failure: Secondary to above. Patient mentioned that he never been on oxygen at home. Yesterday, patient complains of difficulty breathing again for which the patient performed and revealed pH of 7.53, PCO2 of 34 and PO2 of 86. Today, patient reported some improvement of her symptoms. Plan as above, will take him off BiPAP, oxygen by nasal cannula. #3 CAD status post CABG: As above, continue aspirin, statins, Coreg, Plavix and isosorbide mononitrate. #4 COPD: He is on DuoNeb every 6 hours, continue albuterol as needed, encourage incentive spirometer, chest physiotherapy. #5 stage III chronic kidney disease: Baseline creatinine is around 1.5-1.8 mg/dL. Admission creatinine is 1.50, today's creatinine is 1.63, stable at baseline. Plan to monitor kidney function while on IV Lasix for diuresis. #6 hypertension: Blood pressure stable, continue Norvasc, Coreg, hydralazine and isosorbide mononitrate. #7 hyperlipidemia: Continue statins. #8 benign prostatic hypertrophy/chronic indwelling Charles catheter: Continue Flomax. Recommend follow-up with urology as outpatient. #9 DVT prophylaxis: Subcu heparin. This note was generated with [employer] software. It may contain incorrect words, spelling, and punctuation that were not noted in checking the note before signing. Code Visit Inpatient E&M: 24316 Subs Hosp L2
--- NOTE | 2018-05-17 08:00 | PN_ITS ---
Subjective: Chief complaint: Follow-up after admission for acute on chronic diastolic CHF and acute hypoxic respiratory failure. Patient seen and examined. No acute events overnight. He reports minimal improvement of his symptoms. Still having orthopnea when he lays flat. Nursing staff report that he has been anxious while on BiPAP. No chest pain. Complains of cough without sputum production. Denies fever chills. He is afebrile, blood pressure and heart rate are stable. I took him off BiPAP nasal cannula. - Physical Exam General: Alert, Oriented x3, Cooperative, - - Moderately short of breath. HEENT: Atraumatic, PERRLA, EOMI, Normocephalic Oral: Moist Mucosa, No Gingival or Mucosal Lesions/ Ulcerations Neck: Supple, No JVD, Negative Carotid Bruits, Trachea Midline, Thyroid Normal Size and Texture Lungs: Clear to auscultation, No rhonchi, No wheeze, No rales, Diminished Cardiovascular: Regular rate, Regular Rhythm, Normal S1, Normal S2, PMI Normal Abdomen: Bowel Sounds Present, Soft, Non Tender, Non-Distended, No Hepato- splenomegaly Extremities: No clubbing, No cyanosis, Edema Skin: No rashes, No breakdown Lymphatic: No Cervical, Supraclavicular, or Inguinal Adenopathy Neurological: Cranial nerves II-XII grossly intact, Motor Exam 5/5 strength throughout Psych/Mental Status: Normal Affect, Appropriate, Alert and oriented to time, place, person, mood and affect Vital Signs Temp Pulse Resp BP Pulse Ox 99 F 65 21 H 154/66 H 95 05/17/18 02:51 05/17/18 07:11 05/17/18 07:10 05/17/18 05:14 05/17/18 07:10 Oxygen Flow Rate (L/min) 2 Oxygen Delivery Method Nasal Cannula Weight: 189 lb 13.088 oz Body Mass Index (BMI) 29.2 Intake and Output for Last 24 Hours 05/15/18 05/16/18 05/17/18 23:59 23:59 23:59 Intake Total 120 / 120 940 / 940 120 / 120 Output Total 750 / 950 1750 / 1750 400 / 400 Balance -630 / -830 -810 / -810 -280 / -280 Laboratory Tests Past 24 Hrs 05/16/18 05/16/18 05/17/18 12:05 15:03 05:25 WBC 11.6 H RBC 3.34 L Hgb 10.2 L Hct 34.1 L MCV 102.1 H MCH 30.5 MCHC 29.9 L RDW 18.3 H RDW Differential 65.9 H Plt Count 229 MPV 10.0 Immature Gran % (Auto) 0.300 Neut % (Auto) 80.0 H Lymph % (Auto) 10.2 L [place] % (Auto) 8.5 Eos % (Auto) 0.9 Baso % (Auto) 0.1 Absolute Neuts (auto) 9.3 H Absolute Lymphs (auto) 1.18 Total Counted Not Reportable Polychromasia 1+ Anisocytosis 1+ Macrocytosis 1+ PT 13.5 INR 1.0 Specimen Type ART Sample Site L Radial pH 7.53 H Bicarbonate Actual 28.2 H POC Total CO2 29 Base Excess 5 H O2 Saturation 98 ABG pCO2 34.0 L ABG pO2 86 Clay Test POS O2 Delivery Device Nasal Can Liter Flow 2.0 Blood Gas Notified Whom [facility] Blood Gas Notified Time 1510 Sodium Potassium Chloride Carbon Dioxide Anion Gap BUN Creatinine Estim Creat Clear Calc Est GFR (MDRD) Af Amer Est GFR (MDRD) Non-Af BUN/Creatinine Ratio Glucose Calcium 05/17/18 05:25 WBC RBC Hgb Hct MCV MCH MCHC RDW RDW Differential Plt Count MPV Immature Gran % (Auto) Neut % (Auto) Lymph % (Auto) Child[place] % (Auto) Eos % (Auto) Baso % (Auto) Absolute Neuts (auto) Absolute Lymphs (auto) Total Counted Polychromasia Anisocytosis Macrocytosis PT INR Specimen Type Sample Site pH Bicarbonate Actual POC Total CO2 Base Excess O2 Saturation ABG pCO2 ABG pO2 Clay Test O2 Delivery Device Liter Flow Blood Gas Notified Whom Blood Gas Notified Time Sodium 143 Potassium 3.8 Chloride 105 Carbon Dioxide 31.0 Anion Gap 7 BUN 45 H Creatinine 1.63 H Estim Creat Clear Calc 43.13 Est GFR (MDRD) Af Amer 55 L Est GFR (MDRD) Non-Af 45 L BUN/Creatinine Ratio 27.6 H Glucose 111 H Calcium 8.6 Medical Necessity - Tobacco Use Smoking Status: Current some day smoker Tobacco Use: Cigarettes Assessment/Plan All Active Problems Acute respiratory failure with hypoxia (Acute) Diastolic CHF (Acute) This is a 67-year-old male patient admitted because of worsening shortness of breath and he was found to have acute on chronic diastolic CHF complicated by acute hypoxic respiratory failure. #1 acute on chronic diastolic CHF: He is on IV Lasix. Oral Bumex discontinued. Continued on coronary, hydralazine and isosorbide mononitrate. EKG revealed sinus rhythm, prolonged QTC, no acute ischemic changes. Troponin is negative. His weight is down by 10 pounds. Reported minimal improvement, still having orthopnea. On May 11, 2018, he underwent stress echocardiogram that revealed ejection fraction 60 %, normal, adequate dobutamine echocardiogram which was negative for ischemia by EKG and echocardiographic criteria. Cardiology consulted, patient may need to go for cardiac catheterization. Plan to DC BiPAP , oxygen by nasal cannula, ambulate, repeat BMP tomorrow morning. #2 acute hypoxic respiratory failure: Secondary to above. Patient mentioned that he never been on oxygen at home. Yesterday, patient complains of difficulty breathing again for which the patient performed and revealed pH of 7.53, PCO2 of 34 and PO2 of 86. Today, patient reported some improvement of her symptoms. Plan as above, will take him off BiPAP, oxygen by nasal cannula. #3 CAD status post CABG: As above, continue aspirin, statins, Coreg, Plavix and isosorbide mononitrate. #4 COPD: He is on DuoNeb every 6 hours, continue albuterol as needed, encourage incentive spirometer, chest physiotherapy. #5 stage III chronic kidney disease: Baseline creatinine is around 1.5-1.8 mg/ dL. Admission creatinine is 1.50, today's creatinine is 1.63, stable at baseline. Plan to monitor kidney function while on IV Lasix for diuresis. #6 hypertension: Blood pressure stable, continue Norvasc, Coreg, hydralazine and isosorbide mononitrate. #7 hyperlipidemia: Continue statins. #8 benign prostatic hypertrophy/chronic indwelling Charles catheter: Continue Flomax. Recommend follow-up with urology as outpatient. #9 DVT prophylaxis: Subcu heparin. This note was generated with [employer] software. It may contain incorrect words, spelling, and punctuation that were not noted in checking the note before signing. Code Visit Inpatient E&M: 37560 Subs Hosp L2
[2018-05-17] MEDS: Ferrous Sulfate 325 MG Tablet PO ×2 (08:29→17:23)
[2018-05-17] MEDS: Aspirin E.C. 81 MG Tablet PO (08:29)
[2018-05-17] MEDS: ALPRAZolam 0.5 MG Tablet PO ×2 (08:29→21:45)
[2018-05-17] MEDS: Carvedilol 25 MG Tablet PO ×2 (08:31→21:45)
[2018-05-17] MEDS: Tamsulosin HCl 0.4 MG Capsule PO ×2 (08:31→21:44)
[2018-05-17] MEDS: Isosorbide Mononitrate 30 MG Tablet PO (08:32)
[2018-05-17] MEDS: Clopidogrel Bisulfate 75 MG Tablet PO (08:33)
[2018-05-17] MEDS: Finasteride 5 MG Tablet PO (08:33)
[2018-05-17] MEDS: Sertraline 50 MG Tablet PO (08:33)
[2018-05-17] MEDS: amLODIPine 10 MG Tablet PO (08:34)
--- NOTE | 2018-05-17 15:11 | PCM.PN.CARD ---
Subjectve: Patient doing well this morning, still unable to lay down flat. Still on O2 nasal cannula. Objective: Vital Signs Temp Pulse Resp BP Pulse Ox 98.0 F 68 18 136/68 H 95 05/17/18 12:30 05/17/18 14:16 05/17/18 13:07 05/17/18 12:30 05/17/18 12:30 Oxygen Flow Rate (L/min) 2 Oxygen Delivery Method Nasal Cannula Weight: 189 lb 13.088 oz Body Mass Index (BMI) 29.2 Intake and Output for Last 24 Hours 05/15/18 05/16/18 05/17/18 23:59 23:59 23:59 Intake Total 120 / 120 940 / 940 240 / 240 Output Total 750 / 950 1750 / 1750 650 / 650 Balance -630 / -830 -810 / -810 -410 / -410 General: Awake, Alert, Oriented x 3 HEENT: PERRL, EOMI, Sclera Non Icteric Neck: Supple, Good ROM, No Lymph Node Enlargement Lungs: Diminished Viral Bases Cardiovascular: Regular Rhythm, Normal S1, Normal S2, No Murmurs, No Rubs, No Gallops Vascular: No Carotid Bruits, Normal Femoral Pulses, Normal Radial Pulses, Normal Dorsalis Pedal Pulse, Normal Posterior Tibial Pulses Abdomen: Bowel Sounds Present, Soft, Non Tender, No HSM, No Organomegaly Extremities: No Cyanosis, No Clubbing, No edema Neurological: No Focal Motor or Sensory Deficit 05/16/18 15:03: pH 7.53 H, Bicarbonate Actual 28.2 H, POC Total CO2 29, Base Excess 5 H, O2 Saturation 98, ABG pCO2 34.0 L, ABG pO2 86, Clay Test POS 05/17/18 05:25: WBC 11.6 H, RBC 3.34 L, Hgb 10.2 L, Hct 34.1 L, MCV 102.1 H, MCH 30.5, MCHC 29.9 L, RDW 18.3 H, RDW Differential 65.9 H, Plt Count 229, MPV 10.0, Immature Gran % (Auto) 0.300, Neut % (Auto) 80.0 H, Lymph % (Auto) 10.2 L, [place] % (Auto) 8.5, Eos % (Auto) 0.9, Baso % (Auto) 0.1, Absolute Neuts (auto) 9.3 H, Total Counted Not Reportable 05/17/18 05:25: Sodium 143, Potassium 3.8, Chloride 105, Carbon Dioxide 31.0, Anion Gap 7, BUN 45 H, Creatinine 1.63 H, Est GFR (MDRD) Af Amer 55 L, Est GFR (MDRD) Non-Af 45 L, BUN/Creatinine Ratio 27.6 H, Glucose 111 H, Calcium 8.6 Rhythm: EKG: ECHO: Stress Test: Cardiac Cath: PCI: CT Surgery: Holter monitor: EPS: PPM: CXR: Chest CT Scan: Medical Necessity - Tobacco Use Smoking Status: Current some day smoker Tobacco Use: Cigarettes Assessment/Plan 1. Congestive heart failure: The patient presents with diastolic congestive heart failure possibly superimposed on known coronary disease as well as COPD. Patient was recently discharged after a negative debridement echocardiogram, however he returned with worsening shortness of breath, orthopnea, PND and abdominal bloating. He has responded well to IV diuretic therapy. He reports he was eating cheeseburgers at home after he was discharged recently. I recommended the patient undergo a repeat left heart catheterization and possibly right heart catheterization to assess his pulmonary pressures and coronary anatomy. The patient has known coronary artery disease. We will wait to do this until he is able to lay down flat completely. This may either be tomorrow or Tuesday. In the meantime we will continue gentle diuresis with IV diuretic therapy, Coreg, Imdur, and amlodipine. Continue aspirin and Plavix. Code Visit Inpatient E&M: 99830 Subs Hosp L2
--- NOTE | 2018-05-17 15:18 | PN.CARD_ITS ---
Subjectve: Patient doing well this morning, still unable to lay down flat. Still on O2 nasal cannula. Objective: Vital Signs Temp Pulse Resp BP Pulse Ox 98.0 F 68 18 136/68 H 95 05/17/18 12:30 05/17/18 14:16 05/17/18 13:07 05/17/18 12:30 05/17/18 12:30 Oxygen Flow Rate (L/min) 2 Oxygen Delivery Method Nasal Cannula Weight: 189 lb 13.088 oz Body Mass Index (BMI) 29.2 Intake and Output for Last 24 Hours 05/15/18 05/16/18 05/17/18 23:59 23:59 23:59 Intake Total 120 / 120 940 / 940 240 / 240 Output Total 750 / 950 1750 / 1750 650 / 650 Balance -630 / -830 -810 / -810 -410 / -410 General: Awake, Alert, Oriented x 3 HEENT: PERRL, EOMI, Sclera Non Icteric Neck: Supple, Good ROM, No Lymph Node Enlargement Lungs: Diminished Viral Bases Cardiovascular: Regular Rhythm, Normal S1, Normal S2, No Murmurs, No Rubs, No Gallops Vascular: No Carotid Bruits, Normal Femoral Pulses, Normal Radial Pulses, Normal Dorsalis Pedal Pulse, Normal Posterior Tibial Pulses Abdomen: Bowel Sounds Present, Soft, Non Tender, No HSM, No Organomegaly Extremities: No Cyanosis, No Clubbing, No edema Neurological: No Focal Motor or Sensory Deficit 05/16/18 15:03: pH 7.53 H, Bicarbonate Actual 28.2 H, POC Total CO2 29, Base Excess 5 H, O2 Saturation 98, ABG pCO2 34.0 L, ABG pO2 86, Clay Test POS 05/17/18 05:25: WBC 11.6 H, RBC 3.34 L, Hgb 10.2 L, Hct 34.1 L, MCV 102.1 H, MCH 30.5, MCHC 29.9 L, RDW 18.3 H, RDW Differential 65.9 H, Plt Count 229, MPV 10.0, Immature Gran % (Auto) 0.300, Neut % (Auto) 80.0 H, Lymph % (Auto) 10.2 L , [place] % (Auto) 8.5, Eos % (Auto) 0.9, Baso % (Auto) 0.1, Absolute Neuts (auto) 9.3 H, Total Counted Not Reportable 05/17/18 05:25: Sodium 143, Potassium 3.8, Chloride 105, Carbon Dioxide 31.0, Anion Gap 7, BUN 45 H, Creatinine 1.63 H, Est GFR (MDRD) Af Amer 55 L, Est GFR ( MDRD) Non-Af 45 L, BUN/Creatinine Ratio 27.6 H, Glucose 111 H, Calcium 8.6 Rhythm: EKG: ECHO: Stress Test: Cardiac Cath: PCI: CT Surgery: Holter monitor: EPS: PPM: CXR: Chest CT Scan: Medical Necessity - Tobacco Use Smoking Status: Current some day smoker Tobacco Use: Cigarettes Assessment/Plan 1. Congestive heart failure: The patient presents with diastolic congestive heart failure possibly superimposed on known coronary disease as well as COPD. Patient was recently discharged after a negative debridement echocardiogram, however he returned with worsening shortness of breath, orthopnea, PND and abdominal bloating. He has responded well to IV diuretic therapy. He reports he was eating cheeseburgers at home after he was discharged recently. I recommended the patient undergo a repeat left heart catheterization and possibly right heart catheterization to assess his pulmonary pressures and coronary anatomy. The patient has known coronary artery disease. We will wait to do this until he is able to lay down flat completely. This may either be tomorrow or Tuesday. In the meantime we will continue gentle diuresis with IV diuretic therapy, Coreg , Imdur, and amlodipine. Continue aspirin and Plavix. Code Visit Inpatient E&M: 96530 Subs Hosp L2
[2018-05-17] MEDS: Albuterol 2.5 MG/3 ML VIAL.NEB. INHALATION (16:50)
[2018-05-17] MEDS: Pramipexole Di-HCl 0.5 MG Tablet PO (21:43)
[2018-05-17] MEDS: Atorvastatin Calcium 80 MG Tablet PO (21:43)
[2018-05-18] VITALS (24 sets, daily range): BP systolic 143–158; BP diastolic 66–79; PULSE 59–81; RESP 12–34; TEMP 36.6–36.8; O2SAT 90–99
[2018-05-18] MEDS: Ipratropium/Albuterol Sulfate 3 ML AMPUL.NEB INHALATION ×4 (00:51→19:18)
[2018-05-18] MEDS: Acetaminophen 325 MG Tablet 650 MG PO (04:09)
[2018-05-18] MEDS: hydrALAZINE 50 MG Tablet 100 MG PO ×3 (05:27→22:18)
[2018-05-18] MEDS: Furosemide 40 MG/4 ML Vial IV ×3 (05:27→22:20)
[2018-05-18] MEDS: Heparin Injection (Vial) 5,000 UNIT/ML VIAL 5000 UNIT SC ×2 (05:27→14:20)
[2018-05-18] MEDS: 0.9% NaCl Peripheral Flush Adult/Peds IV ×3 (05:29→22:26)
[2018-05-18] MEDS: Ferrous Sulfate 325 MG Tablet PO (08:35)
[2018-05-18] MEDS: Aspirin E.C. 81 MG Tablet PO (08:35)
[2018-05-18] MEDS: Albuterol 2.5 MG/3 ML VIAL.NEB. INHALATION ×2 (09:57→16:52)
[2018-05-18] MEDS: Isosorbide Mononitrate 30 MG Tablet PO (10:29)
[2018-05-18] MEDS: Clopidogrel Bisulfate 75 MG Tablet PO (10:29)
[2018-05-18] MEDS: Tamsulosin HCl 0.4 MG Capsule PO ×2 (10:29→22:19)
[2018-05-18] MEDS: amLODIPine 10 MG Tablet PO (10:29)
[2018-05-18] MEDS: Carvedilol 25 MG Tablet PO ×2 (10:29→22:19)
[2018-05-18] MEDS: Finasteride 5 MG Tablet PO (10:30)
[2018-05-18] MEDS: Sertraline 50 MG Tablet PO (10:30)
[2018-05-18] MEDS: ALPRAZolam 0.5 MG Tablet PO ×2 (10:31→22:26)
--- NOTE | 2018-05-18 10:42 | CASEMGMT ---
This RN CM to room to speak with pt and he is on bipap and c/o SOB at this time, is not at bedside. Per respiratory, pt does not need bipap but insists on wearing it and feels more comfort with bipap. Pt seems very anxious at this time. Per chart, pt has not had prn Xanax this am. 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 SStaten RAYMOND CM
--- NOTE | 2018-05-18 11:09 | PN_ITS ---
Subjective: Patient is a 67-year-old gentleman who presented with exertional fatigue and progressive shortness of breath an assessment of acute congestive heart failure made admitted to a monitored bed for further management patient has been seen by cardiology plans for patient undergo left heart catheterization on 06/05/2018 Objective: GENERAL: Dyspneic at rest HEENT: Clear conjunctiva, moist oral mucosa NECK; supple, normal thyroid, no distended JVD. 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 SKIN: As described above Vitals/I&O's: Vital Signs Temp Pulse Resp BP Pulse Ox 97.9 F 65 18 154/79 H 95 05/18/18 10:26 05/18/18 10:26 05/18/18 10:26 05/18/18 10:26 05/18/18 10:26 Oxygen Flow Rate (L/min) 2 Oxygen Delivery Method Nasal Cannula Weight: 89.3 kg Body Mass Index (BMI) 29.2 Intake and Output for Last 24 Hours 05/16/18 05/17/18 05/18/18 23:59 23:59 23:59 Intake Total 940 / 940 580 / 580 524 / 524 Output Total 1750 / 1750 775 / 775 600 / 600 Balance -810 / -810 -195 / -195 -76 / -76 Current Medications Acetaminophen (Tylenol) 650 mg PO Q6H PRN PRN PRN Reason: Non-cardiac pain (mod-severe) Last Admin: 05/18/18 04:09 Dose: 650 mg Albuterol Sulfate (Ventolin Aerosols) 2.5 mg INHALATION Q4H PRN PRN PRN Reason: SHORTNESS OF BREATH Last Admin: 05/18/18 09:57 Dose: 2.5 mg Albuterol/Ipratropium (Duoneb) 3 ml INHALATION Q6H.RT JAIME Last Admin: 05/18/18 07:30 Dose: 3 ml Alprazolam (Xanax) 0.5 mg PO BID PRN PRN PRN Reason: anxiety/sob Last Admin: 05/18/18 10:31 Dose: 0.5 mg Amlodipine Besylate (Norvasc) 10 mg PO DAILY JAIME Last Admin: 05/18/18 10:29 Dose: 10 mg Aspirin (Ecotrin) 81 mg PO DAILY@0800 [facility] Last Admin: 05/18/18 08:35 Dose: 81 mg Atorvastatin Calcium (Lipitor) 80 mg PO QHS [facility] Last Admin: 05/17/18 21:43 Dose: 80 mg Carvedilol (Coreg) 25 mg PO BID [facility] Last Admin: 05/18/18 10:29 Dose: 25 mg Clopidogrel Bisulfate (Plavix) 75 mg PO DAILY [facility] Last Admin: 05/18/18 10:29 Dose: 75 mg Ferrous Sulfate (Ferrous Sulfate) 325 mg PO BIDCM [facility] Last Admin: 05/18/18 08:35 Dose: 325 mg Finasteride (Proscar) 5 mg PO DAILY [facility] Last Admin: 05/18/18 10:30 Dose: 5 mg Furosemide (Lasix) 40 mg IV Q8 [facility] Last Admin: 05/18/18 05:27 Dose: 40 mg Heparin Sodium (Porcine) (Heparin Na) 5,000 unit SC Q8 [facility] Last Admin: 05/18/18 05:27 Dose: 5,000 units Hydralazine HCl (Apresoline) 100 mg PO TID [facility] Last Admin: 05/18/18 05:27 Dose: 100 mg Isosorbide Mononitrate (Imdur) 30 mg PO DAILY [facility] Last Admin: 05/18/18 10:29 Dose: 30 mg Magnesium Hydroxide (Milk Of Magnesia) 30 ml PO DAILY PRN PRN Reason: Constipation Pramipexole Dihydrochloride (Mirapex) 0.5 mg PO QHS [facility] Last Admin: 05/17/18 21:43 Dose: 0.5 mg Sertraline HCl (Zoloft) 50 mg PO DAILY [facility] Last Admin: 05/18/18 10:30 Dose: 50 mg Sodium Chloride () 5 - 30 ml IV UD PRN PRN Reason: SALINE FLUSH Last Admin: 05/18/18 05:29 Dose: 10 ml Tamsulosin HCl (Flomax) 0.4 mg PO BID [facility] Last Admin: 05/18/18 10:29 Dose: 0.4 mg Medical Necessity - Tobacco Use Smoking Status: Current some day smoker Tobacco Use: Cigarettes Assessment/Plan All Active Problems Acute respiratory failure with hypoxia (Acute) Diastolic CHF (Acute) Patient is a 67-year-old gentleman who presented with exertional fatigue and progressive shortness of breath an assessment of acute congestive heart failure made admitted to a monitored bed for further management patient has been seen by cardiology plans for patient undergo left heart catheterization on 06/05/2018 1. Acute diastolic congestive heart failure: Echo on 04/08/2018 demonstrated features consistent with diastolic dysfunction with an EF of 55% and mild pulmonary hypertension with RSVP of 42 mmHg patient has been admitted to monitored bed managed with fluid restriction, strict input and output daily weights as well as IV Lasix; patient has been seen by cardiology plans for patient undergo left heart catheterization on 06/05/2018 2. Acute respiratory sufficiency on supplemental oxygen 3. Recent admission for community-acquired pneumonia patient completed treatment 4. CAD with previous CABG patient is on Plavix as well as statin therapy 5. Hypertension-blood pressure controlled, home medications continued with dose adjustment as needed 6. Dyslipidemia-patient is on statin therapy, continued at home dose 7. COPD; nebs prn 8. BPH, status post chronic Charles catheter 9. Kidney disease stage III patient kidney function appears to be at baseline 10. DVT prophylaxis SC Heparin Clinical Impression(s) from Imaging Studies Chest X-Ray 05/15/18 20:08 IMPRESSION: COPD with superimposed mild pulmonary congestion with bilateral effusions and bibasilar atelectasis Electronically Signed: Pb Lancaster MD at 20:32 EDT , Service support , Active Medications Acetaminophen (Tylenol) 650 mg PO Q6H PRN PRN PRN Reason: Non-cardiac pain (mod-severe) Last Admin: 05/18/18 04:09 Dose: 650 mg Albuterol Sulfate (Ventolin Aerosols) 2.5 mg INHALATION Q4H PRN PRN PRN Reason: SHORTNESS OF BREATH Last Admin: 05/18/18 09:57 Dose: 2.5 mg Albuterol/Ipratropium (Duoneb) 3 ml INHALATION Q6H.RT JAIME Last Admin: 05/18/18 13:23 Dose: 3 ml Alprazolam (Xanax) 0.5 mg PO BID PRN PRN PRN Reason: anxiety/sob Last Admin: 05/18/18 10:31 Dose: 0.5 mg Amlodipine Besylate (Norvasc) 10 mg PO DAILY [facility] Last Admin: 05/18/18 10:29 Dose: 10 mg Aspirin (Ecotrin) 81 mg PO DAILY@0800 [facility] Last Admin: 05/18/18 08:35 Dose: 81 mg Atorvastatin Calcium (Lipitor) 80 mg PO QHS [facility] Last Admin: 05/17/18 21:43 Dose: 80 mg Carvedilol (Coreg) 25 mg PO BID [facility] Last Admin: 05/18/18 10:29 Dose: 25 mg Clopidogrel Bisulfate (Plavix) 75 mg PO DAILY [facility] Last Admin: 05/18/18 10:29 Dose: 75 mg [facility]ous [facility]) [facility] Last Admin: 05/18/18 08:35 Dose: 325 mg Finasteride (Proscar) 5 mg PO DAILY [facility] Last Admin: 05/18/18 10:30 Dose: 5 mg Furosemide (Lasix) 40 mg IV Q8 [facility] Last Admin: 05/18/18 05:27 Dose: 40 mg Heparin Sodium (Porcine) (Heparin Na) 5,000 unit SC Q8 [facility] Last Admin: 05/18/18 05:27 Dose: 5,000 units Hydralazine HCl (Apresoline) 100 mg PO TID [facility] Last Admin: 05/18/18 05:27 Dose: 100 mg Isosorbide Mononitrate (Imdur) 30 mg PO DAILY [facility] Last Admin: 05/18/18 10:29 Dose: 30 mg Magnesium Hydroxide (Milk Of Magnesia) 30 ml PO DAILY PRN PRN Reason: Constipation Pramipexole Dihydrochloride (Mirapex) 0.5 mg PO QHS [facility] Last Admin: 05/17/18 21:43 Dose: 0.5 mg Sertraline HCl (Zoloft) 50 mg PO DAILY [facility] Last Admin: 05/18/18 10:30 Dose: 50 mg Sodium Chloride () 5 - 30 ml IV UD PRN PRN Reason: SALINE FLUSH Last Admin: 05/18/18 05:29 Dose: 10 ml Tamsulosin HCl (Flomax) 0.4 mg PO BID [facility] Last Admin: 05/18/18 10:29 Dose: 0.4 mg Code Visit Inpatient E&M: 17869 [facility]
--- NOTE | 2018-05-18 11:29 | CASEMGMT ---
This RN CM to room to speak with pt regarding HHC or CCN at discharge. Pt/ had declined these previously but pt has had about 4 admissions in the last month or so. Pt states 'I don't know how that will help.' This RN CM encouraged pt/ to try CCN or HHC since he has declined in past and he has frequent readmissions, pt/ voice understanding. voices concerns over pt's anxiety being a part of the SOB and this RN CM concurred the same. Pt/ to contemplate HHC and CCN and CM to follow up. SStaten RN CM
--- NOTE | 2018-05-18 13:37 | PCM.PN.CARD ---
Subjectve: Patient sitting at edge of bed, still not able to lay down flat despite BiPAP therapy. Head of bed at 45? last evening. Has not yet tried to lay down flat today however. Telemetry showed normal sinus rhythm with PACs. Objective: Vital Signs Temp Pulse Resp BP Pulse Ox 97.9 F 61 18 154/79 H 95 05/18/18 10:26 05/18/18 10:52 05/18/18 10:26 05/18/18 10:26 05/18/18 10:26 Oxygen Flow Rate (L/min) 2 Oxygen Delivery Method Nasal Cannula Weight: 196 lb 13.965 oz Body Mass Index (BMI) 29.2 Intake and Output for Last 24 Hours 05/16/18 05/17/18 05/18/18 23:59 23:59 23:59 Intake Total 940 / 940 580 / 580 844 / 844 Output Total 1750 / 1750 775 / 775 600 / 600 Balance -810 / -810 -195 / -195 244 / 244 General: Awake, Alert, Oriented x 3 HEENT: PERRL, EOMI, Sclera Non Icteric Neck: Supple, Good ROM, No Lymph Node Enlargement Lungs: Clear to auscultation Cardiovascular: Regular Rhythm, Normal S1, Normal S2, No Murmurs, No Rubs, No Gallops Vascular: No Carotid Bruits, Normal Femoral Pulses, Normal Radial Pulses, Normal Dorsalis Pedal Pulse, Normal Posterior Tibial Pulses Abdomen: Bowel Sounds Present, Soft, Non Tender, No HSM, No Organomegaly Extremities: No Cyanosis, No Clubbing, Bilateral Edema +1 Neurological: No Focal Motor or Sensory Deficit Rhythm: EKG: ECHO: Stress Test: Cardiac Cath: PCI: CT Surgery: Holter monitor: EPS: PPM: CXR: Chest CT Scan: Medical Necessity - Tobacco Use Smoking Status: Current some day smoker Tobacco Use: Cigarettes Code Visit Inpatient E&M: 38416 Subs Hosp L2
[2018-05-18] MEDS: Acetylcysteine 800 MG/4 ML VIAL.NEB. INHALATION (19:18)
--- NOTE | 2018-05-18 20:37 | CT_ITS ---
STUDY: CTA CHEST REASON FOR EXAM: Male, 67 years old. Congestive heart failure. COPD. Possible pulmonary embolus. RADIATION DOSAGE (If Supplied By Facility): CTDIvol = ( 15.87 ) mGy, DLP = ( 773.40 ) mGycm TECHNIQUE: The examination was performed with the intravenous administration of 75ML ml of Isovue 370 contrast material. Post-processing of the angiographic images was performed, with multiplanar reformation and 3D reconstruction. Individualized dose optimization techniques were used for this CT. COMPARISON: 04/02/2018.. FINDINGS: Normal enhancement of the main pulmonary artery and right and left pulmonary arteries. Normal enhancement of the bilateral peripheral pulmonary arteries. There is no demonstrated pulmonary embolism. There is atherosclerotic calcification of the aortic arch with tortuosity. There is no demonstrated aortic dissection. Sternal cerclage wires and vascular clips are present from a prior sternotomy and coronary artery bypass graft procedure (CABG). There is moderate upper and mid mediastinal adenopathy. There is generalized hyperexpansion of the lungs. There is a moderate right pleural effusion and a small left pleural effusion. These findings are stable. The lungs show evidence for centrilobular emphysema. Atelectasis or infiltrate seen in the anterior segment of the right upper lobe and in the right middle lobe. Atelectasis is seen in both lower lobes worse on the right. Normal chest wall structures. There are degenerative changes of thoracic spine. Normal visualized upper abdomen. CT/CTA Chest W/WO Contrast IMPRESSION: No evidence for PE. Bilateral pleural effusions worse on the right. Bilateral lower lobe atelectasis worse on the right. Atelectasis or infiltrate in the anterior segment right upper lobe and right middle lobe. Electronically Signed: Rogelio Robertson MD at 22:15 EDT , Service support ,
[2018-05-18] MEDS: Atorvastatin Calcium 80 MG Tablet PO (22:21)
[2018-05-18] MEDS: Pramipexole Di-HCl 0.5 MG Tablet PO (22:21)
[2018-05-19] VITALS (19 sets, daily range): BP systolic 146–165; BP diastolic 60–74; PULSE 62–75; RESP 12–24; TEMP 36.5–37; O2SAT 93–99
[2018-05-19] MEDS: Ipratropium/Albuterol Sulfate 3 ML AMPUL.NEB INHALATION ×4 (01:22→17:12)
[2018-05-19] MEDS: Acetylcysteine 800 MG/4 ML VIAL.NEB. INHALATION ×4 (01:22→17:12)
[2018-05-19] MEDS: hydrALAZINE 50 MG Tablet 100 MG PO ×3 (05:30→21:32)
[2018-05-19] MEDS: Furosemide 40 MG/4 ML Vial IV (05:34)
[2018-05-19] MEDS: Heparin Injection (Vial) 5,000 UNIT/ML VIAL 5000 UNIT SC ×3 (05:34→21:34)
[2018-05-19] MEDS: 0.9% NaCl Peripheral Flush Adult/Peds IV ×3 (05:36→09:40)
--- NOTE | 2018-05-19 07:54 | PN_ITS ---
Subjective: Patient continues to complain of difficulty breathing. He did receive Xanax for suspected anxiety. Scheduled to undergo left heart catheterization as part of his evaluation Objective: GENERAL: Dyspneic at rest HEENT: Clear conjunctiva, moist oral mucosa NECK; supple, normal thyroid, no distended JVD. CHEST: Diminished to auscultation bilaterally, HEART: Regular S1 S2, ABDOMEN: soft, non-tender, normoactive bowel sounds, RECTAL: deferred EXTREMITIES: 2 + bilateral edema ENERGY CONSERVATION DIRECTOR: Awake; no lateralizing signs. SKIN: As described above Vitals/I&O's: Vital Signs Temp Pulse Resp BP Pulse Ox 97.7 F L 64 24 H 165/74 H 99 05/19/18 03:00 05/19/18 06:40 05/19/18 06:40 05/19/18 05:30 05/19/18 06:40 Oxygen Flow Rate (L/min) 2 Oxygen Delivery Method Bi-pap Weight: 88.3 kg Body Mass Index (BMI) 29.2 Intake and Output for Last 24 Hours 05/17/18 05/18/18 05/19/18 23:59 23:59 23:59 Intake Total 580 / 580 1084 / 1084 250 / 250 Output Total 775 / 775 2175 / 2175 375 / 375 Balance -195 / -195 -1091 / -1091 -125 / -125 Current Medications Acetaminophen (Tylenol) 650 mg PO Q6H PRN PRN PRN Reason: Non-cardiac pain (mod-severe) Last Admin: 05/18/18 04:09 Dose: 650 mg Acetylcysteine (Mucomyst) 800 mg INHALATION Q6H.RT [facility] Last Admin: 05/19/18 06:40 Dose: 800 mg Albuterol Sulfate (Ventolin Aerosols) 2.5 mg INHALATION Q4H PRN PRN PRN Reason: SHORTNESS OF BREATH Last Admin: 05/18/18 16:52 Dose: 2.5 mg Albuterol/Ipratropium (Duoneb) 3 ml INHALATION Q6H.RT [facility] Last Admin: 05/19/18 06:40 Dose: 3 ml Alprazolam (Xanax) 0.5 mg PO BID PRN PRN PRN Reason: anxiety/sob Last Admin: 05/18/18 22:26 Dose: 0.5 mg Amlodipine Besylate (Norvasc) 10 mg PO DAILY [facility] Last Admin: 05/18/18 10:29 Dose: 10 mg Aspirin (Ecotrin) 81 mg PO DAILY@0800 [facility] Last Admin: 05/18/18 08:35 Dose: 81 mg Atorvastatin Calcium (Lipitor) 80 mg PO QHS [facility] Last Admin: 05/18/18 22:21 Dose: 80 mg Carvedilol (Coreg) 25 mg PO BID [facility] Last Admin: 05/18/18 22:19 Dose: 25 mg Clopidogrel Bisulfate (Plavix) 75 mg PO DAILY [facility] Last Admin: 05/18/18 10:29 Dose: 75 mg [facility]ous S[facility] ([facility] Sulfate) [facility] Last Admin: 05/18/18 17:38 Dose: Not Given Finasteride (Proscar) 5 mg PO DAILY [facility] Last Admin: 05/18/18 10:30 Dose: 5 mg Furosemide (Lasix) 40 mg IV Q8 [facility] Last Admin: 05/19/18 05:34 Dose: 40 mg Heparin Sodium (Porcine) (Heparin Na) 5,000 unit SC Q8 [facility] Last Admin: 05/19/18 05:34 Dose: 5,000 units Hydralazine HCl (Apresoline) 100 mg PO TID [facility] Last Admin: 05/19/18 05:30 Dose: 100 mg Isosorbide Mononitrate (Imdur) 30 mg PO DAILY [facility] Last Admin: 05/18/18 10:29 Dose: 30 mg Magnesium Hydroxide (Milk Of Magnesia) 30 ml PO DAILY PRN PRN Reason: Constipation Pramipexole Dihydrochloride (Mirapex) 0.5 mg PO QHS [facility] Last Admin: 05/18/18 22:21 Dose: 0.5 mg Sertraline HCl (Zoloft) 50 mg PO DAILY [facility] Last Admin: 05/18/18 10:30 Dose: 50 mg Sodium Chloride () 5 - 30 ml IV UD PRN PRN Reason: SALINE FLUSH Last Admin: 05/19/18 05:40 Dose: 5 ml Tamsulosin HCl (Flomax) 0.4 mg PO BID [facility] Last Admin: 05/18/18 22:19 Dose: 0.4 mg Medical Necessity - Tobacco Use Smoking Status: Current some day smoker Tobacco Use: Cigarettes Assessment/Plan All Active Problems Acute respiratory failure with hypoxia (Acute) Diastolic CHF (Acute) Patient is a 67-year-old gentleman who presented with exertional fatigue and progressive shortness of breath an assessment of acute congestive heart failure made admitted to a monitored bed for further management patient has been seen by cardiology plans for patient undergo left heart catheterization on 05/19/2018 1. Acute diastolic congestive heart failure: Echo on 04/08/2018 demonstrated features consistent with diastolic dysfunction with an EF of 55% and mild pulmonary hypertension with RSVP of 42 mmHg patient has been admitted to monitored bed managed with fluid restriction, strict input and output daily weights as well as IV Lasix; patient has been seen by cardiology plans for patient undergo left heart catheterization on 05/19/2018 2. Acute respiratory sufficiency on supplemental oxygen 3. Recent admission for community-acquired pneumonia patient completed treatment 4. CAD with previous CABG patient is on Plavix as well as statin therapy 5. Hypertension-blood pressure controlled, home medications continued with dose adjustment as needed 6. Dyslipidemia-patient is on statin therapy, continued at home dose 7. COPD; nebs prn 8. BPH, status post chronic Charles catheter 9. Kidney disease stage III patient kidney function appears to be at baseline 10. DVT prophylaxis SC Heparin 11. Depression with anxiety patient is on SSRI as well as Xanax as needed Clinical Impression(s) from Imaging Studies Chest X-Ray 05/15/18 20:08 IMPRESSION: COPD with superimposed mild pulmonary congestion with bilateral effusions and bibasilar atelectasis Electronically Signed: Pb Lancaster MD at 20:32 EDT , Service support , Active Medications Acetaminophen (Tylenol) 650 mg PO Q6H PRN PRN PRN Reason: Non-cardiac pain (mod-severe) Last Admin: 05/18/18 04:09 Dose: 650 mg Albuterol Sulfate (Ventolin Aerosols) 2.5 mg INHALATION Q4H PRN PRN PRN Reason: SHORTNESS OF BREATH Last Admin: 05/18/18 09:57 Dose: 2.5 mg Albuterol/Ipratropium (Duoneb) 3 ml INHALATION Q6H.RT [facility] Last Admin: 05/18/18 13:23 Dose: 3 ml Alprazolam (Xanax) 0.5 mg PO BID PRN PRN PRN Reason: anxiety/sob Last Admin: 05/18/18 10:31 Dose: 0.5 mg Amlodipine Besylate (Norvasc) 10 mg PO DAILY [facility] Last Admin: 05/18/18 10:29 Dose: 10 mg Aspirin (Ecotrin) 81 mg PO DAILY@0800 [facility] Last Admin: 05/18/18 08:35 Dose: 81 mg Atorvastatin Calcium (Lipitor) 80 mg PO QHS [facility] Last Admin: 05/17/18 21:43 Dose: 80 mg Carvedilol (Coreg) 25 mg PO BID [facility] Last Admin: 05/18/18 10:29 Dose: 25 mg Clopidogrel Bisulfate (Plavix) 75 mg PO DAILY [facility] Last Admin: 05/18/18 10:29 Dose: 75 mg Ferrous Sulfate ([facility]ous Sulfate) [facility] Last Admin: 05/18/18 08:35 Dose: 325 mg Finasteride (Proscar) 5 mg PO DAILY [facility] Last Admin: 05/18/18 10:30 Dose: 5 mg Furosemide (Lasix) 40 mg IV Q8 [facility] Last Admin: 05/18/18 05:27 Dose: 40 mg Heparin Sodium (Porcine) (Heparin Na) 5,000 unit SC Q8 [facility] Last Admin: 05/18/18 05:27 Dose: 5,000 units Hydralazine HCl (Apresoline) 100 mg PO TID [facility] Last Admin: 05/18/18 05:27 Dose: 100 mg Isosorbide Mononitrate (Imdur) 30 mg PO DAILY [facility] Last Admin: 05/18/18 10:29 Dose: 30 mg Magnesium Hydroxide (Milk Of Magnesia) 30 ml PO DAILY PRN PRN Reason: Constipation Pramipexole Dihydrochloride (Mirapex) 0.5 mg PO QHS [facility] Last Admin: 05/17/18 21:43 Dose: 0.5 mg Sertraline HCl (Zoloft) 50 mg PO DAILY [facility] Last Admin: 05/18/18 10:30 Dose: 50 mg Sodium Chloride () 5 - 30 ml IV UD PRN PRN Reason: SALINE FLUSH Last Admin: 05/18/18 05:29 Dose: 10 ml Tamsulosin HCl (Flomax) 0.4 mg PO BID [facility] Last Admin: 05/18/18 10:29 Dose: 0.4 mg Code Visit Inpatient E&M: 33418 [facility]
[2018-05-19] MEDS: Aspirin E.C. 81 MG Tablet PO (08:55)
[2018-05-19] MEDS: Ferrous Sulfate 325 MG Tablet PO (08:55)
[2018-05-19 09:20] LABS: Hematocrit 36.6 % (40-54); Hemoglobin 10.7 g/dl (13.0-16.5); Mean Corp Hgb Conc 29.2 g/gl (32-36); Mean Corpuscular Hgb 29.6 pg (27.0-32.0); Mean Corpuscular Volume 101.1 fL (80-94); Mean Platelet Vol. 9.8 fl (6.2-12.0); Platelet Count 213 K/mm3 (150-450); RBC Distribution Width CV 18.1 % (11.6-14.6); RBC Distribution Width SD 67.1 fl (35.1-43.9); Red Blood Count 3.62 M/mm3 (4.6-6.2); White Blood Count 11.4 K/mm3 (4.4-11.0)
[2018-05-19 09:21] LABS: Scan Indicated on CBC? Y/N YES- FLAGS NOTED
[2018-05-19] MEDS: Bumetanide 25 MG in CONTAINER,EMPTY 1 BAG CONT INF (09:30)
[2018-05-19] MEDS: Clopidogrel Bisulfate 75 MG Tablet PO (09:36)
[2018-05-19] MEDS: Sertraline 50 MG Tablet PO (09:36)
[2018-05-19] MEDS: Carvedilol 25 MG Tablet PO ×2 (09:36→21:32)
[2018-05-19] MEDS: Tamsulosin HCl 0.4 MG Capsule PO ×2 (09:36→21:33)
[2018-05-19] MEDS: Magnesium Hydroxide 30 ML UDC PO (09:36)
[2018-05-19] MEDS: Finasteride 5 MG Tablet PO (09:36)
[2018-05-19] MEDS: Isosorbide Mononitrate 30 MG Tablet PO (09:37)
[2018-05-19] MEDS: amLODIPine 10 MG Tablet PO (09:37)
[2018-05-19] MEDS: Metolazone 2.5 MG Tablet PO (09:37)
[2018-05-19 09:41] LABS: Anion Gap 10 (5-15); BUN 45 mg/dL (7-18); BUN/Creat Ratio 32.8 RATIO (10-20); Calcium,Total 8.6 mg/dL (8.5-10.1); Chloride 109 mmol/L (98-107); Creatinine, Serum 1.37 mg/dL (0.70-1.30); EST Glomerular Filtration Rate 55 mL/min (>60); Est Glom Filt Rate - Afr Amer 67 mL/min (>60); Estimated Creatinine Clearance 51.31 ml/min; Glucose 120 mg/dL (74-106); Magnesium 2.4 mg/dL (1.6-2.6); Potassium 3.4 mmol/L (3.5-5.1); Sodium Level 142 mmol/L (136-145)
--- NOTE | 2018-05-19 09:48 | US_ITS ---
STUDY: SUPERFICIAL ULTRASOUND - ULTRASOUND OF THE CHEST REASON FOR EXAM: Male, 67 years old. Pleural effusion check. TECHNIQUE: A superficial ultrasound was performed with real-time and static ortez-scale imaging. COMPARISON: CT of the chest 05/18/2018. FINDINGS: There is a large right pleural effusion. There is a small left pleural effusion. Electronically Signed: Rogelio Robertson MD at 15:53 EDT , Service support , US/Chest
--- NOTE | 2018-05-19 10:56 | CASEMGMT ---
Addendum entered by Susan Duran 05/19/18 14:21: Pt is now on bi-pap, not appropriate at this time to complete POA papers. SW will complete POA papers w/pt when appropriate. FABIAN Momin, COORDINATOR [employer] Original Note: Addendum entered by Susan Duran 05/19/18 12:18: Jane from [facility] is here to meet w/pt, declined to speak w/Jane due to cost, and told her that pt is already seeing four specialists. Pt was asleep, pt was awoken and is now not feeling well and seems to be having difficulty breathing. SW notified RN, and pt is not able to have this conversation at this time. SW let Jane know, and Shaniqua from [facility] who called know, that if pt is agreeable to speak w/palliative we will call back on Tuesday. Also, pt is not appropriate at this time to complete POA forms, if pt is feeling better later this afternoon SW will speak w/him then and assist with the POA forms. SW will continue to follow. FABIAN Momin, GATO Original Note: See assessment. SW met w/pt in room in regard to additional services. SW spoke w/pt initially about palliative care, pt is in agreement to palliative referral. SW called, faxed referral, they will be here at 12pm. As per Shaniqua, they spoke w/pt's and they did initially refuse palliative care as cost is $45/visit. SW spoke w/pt, he is still in agreement with meeting at 12pm, states his will be here by then. SW also asked pt about anxiety and possible counseling. Pt states the anxiety was not there before the breathing problems, he does not think he has had an anxiety problem before. SW asked pt about counseling to cope with everything that is going on, pt states he is not sure. SW also asked pt about completing POA papers, pt agreeable to do this. SW explained will be back later to assist with this process. SW will continue to follow, palliative referral later today, will assist w/POA papers as time allows, and will ask pt again about a counseling referral. FABIAN Momin, COORDINATOR [employer]
[2018-05-19] MEDS: ALPRAZolam 0.5 MG Tablet PO ×2 (12:18→21:31)
--- NOTE | 2018-05-19 12:45 | CASEMGMT ---
RAYMOND SPENCER NOTE: Insurance Review for In-Network facilities for [employer] if transfer is recommended are as follows: [facility] Junior VALADEZ RN CM
--- NOTE | 2018-05-19 14:58 | CASEMGMT ---
RN JOHANNA NOTE: Spoke with pt's in room with pt re: DME company preference if pt would need home O2 on discharge. states does not have preference. Green sheet/checklist for discharge home with services placed in chart along with [employer], DME O2 vendor phone #'s, Facesheet and Insurance info. Junior UMAÑAN RN CM
[2018-05-19] MEDS: Atorvastatin Calcium 80 MG Tablet PO (21:31)
[2018-05-19] MEDS: Pramipexole Di-HCl 0.5 MG Tablet PO (21:34)
[2018-05-20] VITALS (21 sets, daily range): BP systolic 126–149; BP diastolic 57–70; PULSE 54–88; RESP 12–25; TEMP 36.8–36.9; O2SAT 93–99
[2018-05-20 05:58] LABS: Hematocrit 33.9 % (40-54); Hemoglobin 10.1 g/dl (13.0-16.5); Mean Corp Hgb Conc 29.8 g/gl (32-36); Mean Corpuscular Hgb 30.1 pg (27.0-32.0); Mean Corpuscular Volume 101.2 fL (80-94); Mean Platelet Vol. 9.3 fl (6.2-12.0); Platelet Count 216 K/mm3 (150-450); RBC Distribution Width CV 17.6 % (11.6-14.6); RBC Distribution Width SD 62.9 fl (35.1-43.9); Red Blood Count 3.35 M/mm3 (4.6-6.2); White Blood Count 10.8 K/mm3 (4.4-11.0)
[2018-05-20 06:01] LABS: Scan Indicated on CBC? Y/N NO
[2018-05-20 06:11] LABS: Anion Gap 6 (5-15); BUN 49 mg/dL (7-18); BUN/Creat Ratio 27.1 RATIO (10-20); Calcium,Total 8.4 mg/dL (8.5-10.1); Chloride 106 mmol/L (98-107); Creatinine, Serum 1.81 mg/dL (0.70-1.30); EST Glomerular Filtration Rate 40 mL/min (>60); Est Glom Filt Rate - Afr Amer 48 mL/min (>60); Estimated Creatinine Clearance 38.84 ml/min; Glucose 129 mg/dL (74-106); Magnesium 2.9 mg/dL (1.6-2.6); Potassium 3.4 mmol/L (3.5-5.1); Sodium Level 142 mmol/L (136-145)
[2018-05-20] MEDS: hydrALAZINE 50 MG Tablet 100 MG PO ×3 (06:38→20:56)
[2018-05-20] MEDS: Heparin Injection (Vial) 5,000 UNIT/ML VIAL 5000 UNIT SC ×2 (06:39→20:57)
[2018-05-20] MEDS: Ipratropium/Albuterol Sulfate 3 ML AMPUL.NEB INHALATION ×3 (06:47→19:06)
[2018-05-20] MEDS: Acetylcysteine 800 MG/4 ML VIAL.NEB. INHALATION ×2 (06:47→19:06)
--- NOTE | 2018-05-20 07:22 | PCM.PN.HOSP ---
Subjective: Breathing about the same Objective: Eating up in bed on BiPAP Vitals/I&O's: Vital Signs Temp Pulse Resp BP Pulse Ox 98.5 F 88 14 149/69 H 99 05/20/18 03:00 05/20/18 07:00 05/20/18 07:00 05/20/18 06:34 05/20/18 07:00 Oxygen Flow Rate (L/min) 4 Oxygen Delivery Method Bi-pap Weight: 197 lb 5.019 oz Body Mass Index (BMI) 29.2 Intake and Output for Last 24 Hours 05/18/18 05/19/18 05/20/18 23:59 23:59 23:59 Intake Total 1084 / 1084 697.7 / 697.7 13.7 / 13.7 Output Total 2175 / 2175 1175 / 1175 250 / 250 Balance -1091 / -1091 -477.3 / -477.3 -236.3 / -236.3 General: Alert, Oriented x3, Cooperative Neck: No JVD Lungs: - - COPD changes, no wheezing, decreased breath sounds right greater than left base Cardiovascular: Regular rate, Regular Rhythm, Normal S1, Normal S2, - - monitoring manager sinus bradycardia Abdomen: Obese Extremities: Edema Psych/Mental Status: Normal Affect, Appropriate Laboratory Results 05/19/18 08:48: WBC 11.4 H, RBC 3.62 L, Hgb 10.7 L, Hct 36.6 L, MCV 101.1 H, MCH 29.6, MCHC 29.2 L, RDW 18.1 H, RDW Differential 67.1 H, Plt Count 213, MPV 9.8, Differential Comment 05/19/18 08:48: Sodium 142, Potassium 3.4 L, Chloride 109 H, Carbon Dioxide 23.0, Anion Gap 10, BUN 45 H, Creatinine 1.37 H, Estim Creat Clear Calc 51.31, Est GFR (MDRD) Af Amer 67, Est GFR (MDRD) Non-Af 55 L, BUN/Creatinine Ratio 32.8 H, Glucose 120 H, Calcium 8.6, Magnesium 2.4 05/20/18 05:45: WBC 10.8, RBC 3.35 L, Hgb 10.1 L, Hct 33.9 L, MCV 101.2 H, MCH 30.1, MCHC 29.8 L, RDW 17.6 H, RDW Differential 62.9 H, Plt Count 216, MPV 9.3 05/20/18 05:45: Sodium 142, Potassium 3.4 L, Chloride 106, Carbon Dioxide 30.0, Anion Gap 6, BUN 49 H, Creatinine 1.81 H, Estim Creat Clear Calc 38.84, Est GFR (MDRD) Af Amer 48 L, Est GFR (MDRD) Non-Af 40 L, BUN/Creatinine Ratio 27.1 H, Glucose 129 H, Calcium 8.4 L, Magnesium 2.9 H Current Medications Acetaminophen (Tylenol) 650 mg PO Q6H PRN PRN PRN Reason: Non-cardiac pain (mod-severe) Last Admin: 05/18/18 04:09 Dose: 650 mg Acetylcysteine (Mucomyst) 800 mg INHALATION Q6H.RT [facility] Last Admin: 05/20/18 06:47 Dose: 800 mg Albuterol Sulfate (Ventolin Aerosols) 2.5 mg INHALATION Q4H PRN PRN PRN Reason: SHORTNESS OF BREATH Last Admin: 05/18/18 16:52 Dose: 2.5 mg Albuterol/Ipratropium (Duoneb) 3 ml INHALATION Q6H.RT [facility] Last Admin: 05/20/18 06:47 Dose: 3 ml Alprazolam (Xanax) 0.5 mg PO TID PRN PRN PRN Reason: ANXIETY Last Admin: 05/19/18 21:31 Dose: 0.5 mg Amlodipine Besylate (Norvasc) 10 mg PO DAILY [facility] Last Admin: 05/19/18 09:37 Dose: 10 mg Aspirin (Ecotrin) 81 mg PO DAILY@0800 [facility] Last Admin: 05/19/18 08:55 Dose: 81 mg Atorvastatin Calcium (Lipitor) 80 mg PO QHS [facility] Last Admin: 05/19/18 21:31 Dose: 80 mg Carvedilol (Coreg) 25 mg PO BID [facility] Last Admin: 05/19/18 21:32 Dose: 25 mg Clopidogrel Bisulfate (Plavix) 75 mg PO DAILY [facility] Last Admin: 05/19/18 09:36 Dose: 75 mg [facility]ous [facility]) [facility] Last Admin: 05/19/18 17:51 Dose: Not Given Finasteride (Proscar) 5 mg PO DAILY [facility] Last Admin: 05/19/18 09:36 Dose: 5 mg Heparin Sodium (Porcine) (Heparin Na) 5,000 unit SC Q8 [facility] Last Admin: 05/20/18 06:39 Dose: 5,000 units Hydralazine HCl (Apresoline) 100 mg PO TID [facility] Last Admin: 05/20/18 06:38 Dose: 100 mg Bumetanide 25 mg/ (Miscellaneous Information) 100 mls @ 2 mls/hr CONT INF .Q50H [facility] PRN Reason: 0.5 MG/HR Last Admin: 05/19/18 09:30 Dose: 2 mls/hr Isosorbide Mononitrate (Imdur) 30 mg PO DAILY [facility] Last Admin: 05/19/18 09:37 Dose: 30 mg Magnesium Hydroxide (Milk Of Magnesia) 30 ml PO DAILY PRN PRN Reason: Constipation Last Admin: 05/19/18 09:36 Dose: 30 ml Metolazone (Zaroxolyn) 2.5 mg PO DAILY [facility] Last Admin: 05/19/18 09:37 Dose: 2.5 mg Pramipexole Dihydrochloride (Mirapex) 0.5 mg PO QHS [facility] Last Admin: 05/19/18 21:34 Dose: 0.5 mg Sertraline HCl (Zoloft) 50 mg PO DAILY [facility] Last Admin: 05/19/18 09:36 Dose: 50 mg Sodium Chloride () 5 - 30 ml IV UD PRN PRN Reason: SALINE FLUSH Last Admin: 05/19/18 09:40 Dose: 10 ml Tamsulosin HCl (Flomax) 0.4 mg PO BID [facility] Last Admin: 05/19/18 21:33 Dose: 0.4 mg Medical Necessity - Tobacco Use Smoking Status: Current some day smoker Tobacco Use: Cigarettes Assessment/Plan All Active Problems Acute respiratory failure with hypoxia (Acute) Diastolic CHF (Acute) 67-year-old gentleman with past medical history of hypertension, hyperlipidemia, COPD, CAD/CABG, admitted 05/15/2018 with dyspnea secondary to acute on chronic diastolic congestive heart failure. Echocardiogram 04/08/2018 revealed EF 55%, RVSP 42. Clinical course complicated by acute hypoxemic respiratory failure requiring supplemental O2, BiPAP at at bedtime. Chest x-ray revealed right greater than left pleural effusions, confirmed by chest CT. He had chest ultrasound yesterday documenting pleural effusions; radiology on Tuesday to perform therapeutic thoracentesis. Imaging studies to include XR chest 05/15/2018, CTA chest 05/18/18 reviewed (no PE, stable moderate R and small left pleural effusion, emphysema, RUL , RML atelectasis of infiltrate) Noted plans for left heart cath 05/19/2018 NO fever chill or cough and non toxic appearing Weights reviewed 1. Acute on chronic diastolic CHF Amlodipine, Bumex drip, carvedilol, isosorbide, hydralazine, Zaroxolyn 2.5 mg daily PLAN: 2. Acute hypoxemic respiratory failure; O2 sats adequate; daytime supplemental O2, intermittent BiPAP current settings 16/7 FiO2 35% 3. Recent admission for community-acquired pneumonia; completed treatment 4. CAD, CABG Noted on aspirin, Plavix, statin, carvedilol, isosorbide and amlodipine 5. Hypertension 6. Hyperlipidemia 7. COPD -continuing pulmonary toilet DuoNeb every 6 hours, albuterol as needed, Mucomyst every 6 hour 8. BPH, with chronic Charles catheter, followed by urology Dr. Braun Noted on tamsulosin, finasteride 9. AK I on CKD 3 Secondary to medical management, diuresis, contrast exam 05/18/18 unclear additional benefit of Zaroxolyn - will stop serial lab/BMP 10. Depression, anxiety Sertraline, Xanax 0.5 mg 3 times daily as needed 11. DVT prophylaxis Subcu heparin Code Visit Inpatient E&M: 91286 Subs Hosp L2
--- NOTE | 2018-05-20 07:43 | PN_ITS ---
Subjective: Breathing about the same Objective: Eating up in bed on BiPAP Vitals/I&O's: Vital Signs Temp Pulse Resp BP Pulse Ox 98.5 F 88 14 149/69 H 99 05/20/18 03:00 05/20/18 07:00 05/20/18 07:00 05/20/18 06:34 05/20/18 07:00 Oxygen Flow Rate (L/min) 4 Oxygen Delivery Method Bi-pap Weight: 197 lb 5.019 oz Body Mass Index (BMI) 29.2 Intake and Output for Last 24 Hours 05/18/18 05/19/18 05/20/18 23:59 23:59 23:59 Intake Total 1084 / 1084 697.7 / 697.7 13.7 / 13.7 Output Total 2175 / 2175 1175 / 1175 250 / 250 Balance -1091 / -1091 -477.3 / -477.3 -236.3 / -236.3 General: Alert, Oriented x3, Cooperative Neck: No JVD Lungs: - - COPD changes, no wheezing, decreased breath sounds right greater than left base Cardiovascular: Regular rate, Regular Rhythm, Normal S1, Normal S2, - - quality assurance monitor chassis sinus bradycardia Abdomen: Obese Extremities: Edema Psych/Mental Status: Normal Affect, Appropriate Laboratory Results 05/19/18 08:48: WBC 11.4 H, RBC 3.62 L, Hgb 10.7 L, Hct 36.6 L, MCV 101.1 H, MCH 29.6, MCHC 29.2 L, RDW 18.1 H, RDW Differential 67.1 H, Plt Count 213, MPV 9.8, Differential Comment 05/19/18 08:48: Sodium 142, Potassium 3.4 L, Chloride 109 H, Carbon Dioxide 23.0 , Anion Gap 10, BUN 45 H, Creatinine 1.37 H, Estim Creat Clear Calc 51.31, Est GFR (MDRD) Af Amer 67, Est GFR (MDRD) Non-Af 55 L, BUN/Creatinine Ratio 32.8 H, Glucose 120 H, Calcium 8.6, Magnesium 2.4 05/20/18 05:45: WBC 10.8, RBC 3.35 L, Hgb 10.1 L, Hct 33.9 L, MCV 101.2 H, MCH 30.1, MCHC 29.8 L, RDW 17.6 H, RDW Differential 62.9 H, Plt Count 216, MPV 9.3 05/20/18 05:45: Sodium 142, Potassium 3.4 L, Chloride 106, Carbon Dioxide 30.0, Anion Gap 6, BUN 49 H, Creatinine 1.81 H, Estim Creat Clear Calc 38.84, Est GFR (MDRD) Af Amer 48 L, Est GFR (MDRD) Non-Af 40 L, BUN/Creatinine Ratio 27.1 H, Glucose 129 H, Calcium 8.4 L, Magnesium 2.9 H Current Medications Acetaminophen (Tylenol) 650 mg PO Q6H PRN PRN PRN Reason: Non-cardiac pain (mod-severe) Last Admin: 05/18/18 04:09 Dose: 650 mg Acetylcysteine (Mucomyst) 800 mg INHALATION Q6H.RT [facility] Last Admin: 05/20/18 06:47 Dose: 800 mg Albuterol Sulfate (Ventolin Aerosols) 2.5 mg INHALATION Q4H PRN PRN PRN Reason: SHORTNESS OF BREATH Last Admin: 05/18/18 16:52 Dose: 2.5 mg Albuterol/Ipratropium (Duoneb) 3 ml INHALATION Q6H.RT [facility] Last Admin: 05/20/18 06:47 Dose: 3 ml Alprazolam (Xanax) 0.5 mg PO TID PRN PRN PRN Reason: ANXIETY Last Admin: 05/19/18 21:31 Dose: 0.5 mg Amlodipine Besylate (Norvasc) 10 mg PO DAILY [facility] Last Admin: 05/19/18 09:37 Dose: 10 mg Aspirin (Ecotrin) 81 mg PO DAILY@0800 [facility] Last Admin: 05/19/18 08:55 Dose: 81 mg Atorvastatin Calcium (Lipitor) 80 mg PO QHS [facility] Last Admin: 05/19/18 21:31 Dose: 80 mg Carvedilol (Coreg) 25 mg PO BID [facility] Last Admin: 05/19/18 21:32 Dose: 25 mg Clopidogrel Bisulfate (Plavix) 75 mg PO DAILY [facility] Last Admin: 05/19/18 09:36 Dose: 75 mg [facility]ous [facility] ([facility]ate) [facility] Last Admin: 05/19/18 17:51 Dose: Not Given Finasteride (Proscar) 5 mg PO DAILY [facility] Last Admin: 05/19/18 09:36 Dose: 5 mg Heparin Sodium (Porcine) (Heparin Na) 5,000 unit SC Q8 [facility] Last Admin: 05/20/18 06:39 Dose: 5,000 units Hydralazine HCl (Apresoline) 100 mg PO TID [facility] Last Admin: 05/20/18 06:38 Dose: 100 mg Bumetanide 25 mg/ (Miscellaneous Information) 100 mls @ 2 mls/hr CONT INF .Q50H [facility] PRN Reason: 0.5 MG/HR Last Admin: 05/19/18 09:30 Dose: 2 mls/hr Isosorbide Mononitrate (Imdur) 30 mg PO DAILY [facility] Last Admin: 05/19/18 09:37 Dose: 30 mg Magnesium Hydroxide (Milk Of Magnesia) 30 ml PO DAILY PRN PRN Reason: Constipation Last Admin: 05/19/18 09:36 Dose: 30 ml Metolazone (Zaroxolyn) 2.5 mg PO DAILY [facility] Last Admin: 05/19/18 09:37 Dose: 2.5 mg Pramipexole Dihydrochloride (Mirapex) 0.5 mg PO QHS [facility] Last Admin: 05/19/18 21:34 Dose: 0.5 mg Sertraline HCl (Zoloft) 50 mg PO DAILY [facility] Last Admin: 05/19/18 09:36 Dose: 50 mg Sodium Chloride () 5 - 30 ml IV UD PRN PRN Reason: SALINE FLUSH Last Admin: 05/19/18 09:40 Dose: 10 ml Tamsulosin HCl (Flomax) 0.4 mg PO BID [facility] Last Admin: 05/19/18 21:33 Dose: 0.4 mg Medical Necessity - Tobacco Use Smoking Status: Current some day smoker Tobacco Use: Cigarettes Assessment/Plan All Active Problems Acute respiratory failure with hypoxia (Acute) Diastolic CHF (Acute) 67-year-old gentleman with past medical history of hypertension, hyperlipidemia , COPD, CAD/CABG, admitted 05/15/2018 with dyspnea secondary to acute on chronic diastolic congestive heart failure. Echocardiogram 04/08/2018 revealed EF 55%, RVSP 42. Clinical course complicated by acute hypoxemic respiratory failure requiring supplemental O2, BiPAP at at bedtime. Chest x-ray revealed right greater than left pleural effusions, confirmed by chest CT. He had chest ultrasound yesterday documenting pleural effusions; radiology on Tuesday to perform therapeutic thoracentesis. Imaging studies to include XR chest 05/15/2018, CTA chest 05/18/18 reviewed (no PE , stable moderate R and small left pleural effusion, emphysema, RUL , RML atelectasis of infiltrate) Noted plans for left heart cath 05/19/2018 NO fever chill or cough and non toxic appearing Weights reviewed 1. Acute on chronic diastolic CHF Amlodipine, Bumex drip, carvedilol, isosorbide, hydralazine, Zaroxolyn 2.5 mg daily PLAN: 2. Acute hypoxemic respiratory failure; O2 sats adequate; daytime supplemental O2, intermittent BiPAP current settings 16/7 FiO2 35% 3. Recent admission for community-acquired pneumonia; completed treatment 4. CAD, CABG Noted on aspirin, Plavix, statin, carvedilol, isosorbide and amlodipine 5. Hypertension 6. Hyperlipidemia 7. COPD -continuing pulmonary toilet DuoNeb every 6 hours, albuterol as needed , Mucomyst every 6 hour 8. BPH, with chronic Charles catheter, followed by urology Dr. Braun Noted on tamsulosin, finasteride 9. AK I on CKD 3 Secondary to medical management, diuresis, contrast exam 05/18/18 unclear additional benefit of Zaroxolyn - will stop serial lab/BMP 10. Depression, anxiety Sertraline, Xanax 0.5 mg 3 times daily as needed 11. DVT prophylaxis Subcu heparin Code Visit Inpatient E&M: 36036 Subs Hosp L2
[2018-05-20] MEDS: amLODIPine 10 MG Tablet PO (09:19)
[2018-05-20] MEDS: Tamsulosin HCl 0.4 MG Capsule PO ×2 (09:19→20:57)
[2018-05-20] MEDS: Isosorbide Mononitrate 30 MG Tablet PO (09:19)
[2018-05-20] MEDS: Ferrous Sulfate 325 MG Tablet PO (09:19)
[2018-05-20] MEDS: Carvedilol 25 MG Tablet PO ×2 (09:19→20:57)
[2018-05-20] MEDS: Aspirin E.C. 81 MG Tablet PO (09:19)
[2018-05-20] MEDS: Sertraline 50 MG Tablet PO (09:20)
[2018-05-20] MEDS: Clopidogrel Bisulfate 75 MG Tablet PO (09:20)
[2018-05-20] MEDS: Finasteride 5 MG Tablet PO (09:20)
--- NOTE | 2018-05-20 14:29 | PN.CARD_ITS ---
Subjectve: The patient is currently without his BiPAP device. He states he feels somewhat better. He continues to cough and states he is bringing up sputum. Objective: Vital Signs Temp Pulse Resp BP Pulse Ox 98.4 F 61 18 134/65 H 96 05/20/18 09:00 05/20/18 13:23 05/20/18 12:51 05/20/18 09:00 05/20/18 12:51 Oxygen Flow Rate (L/min) 3 Oxygen Delivery Method Nasal Cannula Weight: 197 lb 5.019 oz Body Mass Index (BMI) 29.2 Intake and Output for Last 24 Hours 05/18/18 05/19/18 05/20/18 23:59 23:59 23:59 Intake Total 1084 / 1084 697.7 / 697.7 145.1 / 145.1 Output Total 2175 / 2175 1175 / 1175 325 / 325 Balance -1091 / -1091 -477.3 / -477.3 -179.9 / -179.9 General: Awake, Alert, Oriented x 3, Cooperative, Ill Appearing Neck: No JVD Lungs: Diminished Viral Bases Cardiovascular: Regular Rhythm, Normal S1, Normal S2 - Distant heart tones Abdomen: Bowel Sounds Present, Soft, Non Tender Extremities: Mild RLE Edema, Mild LLE Edema 05/20/18 05:45: WBC 10.8, RBC 3.35 L, Hgb 10.1 L, Hct 33.9 L, MCV 101.2 H, MCH 30.1, MCHC 29.8 L, RDW 17.6 H, RDW Differential 62.9 H, Plt Count 216, MPV 9.3 05/20/18 05:45: Sodium 142, Potassium 3.4 L, Chloride 106, Carbon Dioxide 30.0, Anion Gap 6, BUN 49 H, Creatinine 1.81 H, Est GFR (MDRD) Af Amer 48 L, Est GFR ( MDRD) Non-Af 40 L, BUN/Creatinine Ratio 27.1 H, Glucose 129 H, Calcium 8.4 L, Magnesium 2.9 H Rhythm: Sinus rhythm Medical Necessity - Tobacco Use Smoking Status: Current some day smoker Tobacco Use: Cigarettes Assessment/Plan 1. Acute on chronic diastolic mediated CHF The patient presents with recurrent symptoms. At the present time he is undergone noninvasive evaluation. He is being treated medically with diuretic therapy and oxygen support. Based upon his previous cardiovascular evaluation by Dr. Barrientos there was a comment if the patient had ongoing concerns that he may need further definitive evaluation with right/left cardiac cath. However prior to the patient being able to proceed in such manner he will have to have improvement in his underlying respiratory status where he can lie supine to go through such a procedure. Thus, in the interim, he will continue medical therapy. 2. CAD The patient states he has a history of underlying CAD. He has not required revascularization therapy. His cardiac enzymes are negative thus far and his ECG demonstrates no acute changes. However there is still concern as to whether this may be playing a role in his symptoms and objective findings. He will continue to be monitored and will undergo additional evaluation when he is able. In the meantime he should continue medical therapy as tolerated. Will include advancing his nitrate therapy/M door. 3. Hyperlipidemia The patient should continue risk factor evaluation and care. 4. Hypertension Continue antihypertensive therapy in order to optimize his cardiovascular risk factors, etc. and help with his acute on chronic diastolic mediated CHF. 5. COPD The patient has a history of underlying COPD. He states he has been evaluated in the hospital in the past by Dr. Caicedo pulmonology. He may need pulmonology input during his hospitalization to assist with his underlying pulmonary disease process, etc. 6. Chronic renal insufficiency He does have an elevated creatinine level. This would have to be taken into consideration with future invasive evaluation care including studies requiring IV contrast to minimize the risk of IV contrast related nephropathy. Comment: The patient is case was discussed with the patient and his family members present.
[2018-05-20] MEDS: Isosorbide Mononitrate 60 MG Tablet PO (16:52)
--- NOTE | 2018-05-20 19:03 | PCM.CONS.R ---
Problem List (1) Acute renal failure superimposed on chronic kidney disease Status: Acute Consultation - Renal PCP/ Referring MD: Requesting physician: [] Primary care physician: SEUN Poe - History of Present Illness History of Present Illness: The patient is a 67 year old M PMH of diastolic heart failure. Patient presented with CHF exacerbation on 05/15 Patient has been on bumex drip 2 mg/hour and metolazone . Patient's breathing improved but remains SOB on 4l/m Leg edema is still there but improved Patient has CT angio on 05/18 to rule out PE. PE was negative. Patient has B/L pleural effusion R>L Renal team was consulted for DAI on CKD with worsening kidney function Patient UOP dropped today. Metolazone was stopped today. Still on Bumex drip No NSAIDs use ROS: 12 systems review is negative except for SOB and leg edema [] - Allergies Allergies: Allergies irbesartan [From Avapro] Adverse Reaction (Verified 05/15/18 20:06) Other zolpidem [From Ambien] Adverse Reaction (Verified 05/15/18 20:06) Other - Current Medications Current Medications: Current Medications Acetaminophen (Tylenol) 650 mg PO Q6H PRN PRN PRN Reason: Non-cardiac pain (mod-severe) Last Admin: 05/18/18 04:09 Dose: 650 mg Acetylcysteine (Mucomyst) 800 mg INHALATION Q6H.RT [facility] Last Admin: 05/20/18 06:47 Dose: 800 mg Albuterol Sulfate (Ventolin Aerosols) 2.5 mg INHALATION Q4H PRN PRN PRN Reason: SHORTNESS OF BREATH Last Admin: 05/18/18 16:52 Dose: 2.5 mg Albuterol/Ipratropium (Duoneb) 3 ml INHALATION Q6H.RT [facility] Last Admin: 05/20/18 12:51 Dose: 3 ml Alprazolam (Xanax) 0.5 mg PO TID PRN PRN PRN Reason: ANXIETY Last Admin: 05/19/18 21:31 Dose: 0.5 mg Amlodipine Besylate (Norvasc) 10 mg PO DAILY [facility] Last Admin: 05/20/18 09:19 Dose: 10 mg Aspirin (Ecotrin) 81 mg PO DAILY@0800 [facility] Last Admin: 05/20/18 09:19 Dose: 81 mg Atorvastatin Calcium (Lipitor) 80 mg PO QHS [facility] Last Admin: 05/19/18 21:31 Dose: 80 mg Carvedilol (Coreg) 25 mg PO BID [facility] Last Admin: 05/20/18 09:19 Dose: 25 mg Clopidogrel Bisulfate (Plavix) 75 mg PO DAILY [facility] Last Admin: 05/20/18 09:20 Dose: 75 mg Ferrous Sulfate (Ferrous Sulfate) 325 mg PO BIDCM [facility] Last Admin: 05/20/18 16:52 Dose: Not Given Finasteride (Proscar) 5 mg PO DAILY [facility] Last Admin: 05/20/18 09:20 Dose: 5 mg Heparin Sodium (Porcine) (Heparin Na) 5,000 unit SC Q12 [facility] Last Admin: 05/20/18 09:20 Dose: Not Given Hydralazine HCl (Apresoline) 100 mg PO TID [facility] Last Admin: 05/20/18 13:23 Dose: 100 mg Bumetanide 25 mg/ (Miscellaneous Information) 100 mls @ 2 mls/hr CONT INF .Q50H [facility] PRN Reason: 0.5 MG/HR Last Admin: 05/19/18 09:30 Dose: 2 mls/hr Isosorbide Mononitrate (Imdur) 60 mg PO DAILY [facility] Last Admin: 05/20/18 16:52 Dose: 60 mg Magnesium Hydroxide (Milk Of Magnesia) 30 ml PO DAILY PRN PRN Reason: Constipation Last Admin: 05/19/18 09:36 Dose: 30 ml [facility]assium [facility] Last Admin: 05/20/18 09:18 Dose: 40 meq Pramipexole Dihydrochloride (Mirapex) 0.5 mg PO QHS [facility] Last Admin: 05/19/18 21:34 Dose: 0.5 mg Sertraline HCl (Zoloft) 50 mg PO DAILY [facility] Last Admin: 05/20/18 09:20 Dose: 50 mg Sodium Chloride () 5 - 30 ml IV UD PRN PRN Reason: SALINE FLUSH Last Admin: 05/19/18 09:40 Dose: 10 ml Tamsulosin HCl (Flomax) 0.4 mg PO BID [facility] Last Admin: 05/20/18 09:19 Dose: 0.4 mg - Past Medical History Past Medical History (Chronic Problems): Chronic Problems HLD (hyperlipidemia) (Chronic) HTN (hypertension) (Chronic) PAD (peripheral artery disease) (Chronic) CAD (coronary artery disease) (Chronic) COPD (chronic obstructive pulmonary disease) (Chronic) Tobacco dependence (Chronic) CKD (chronic kidney disease) (Chronic) Leukocytosis (Chronic) Anemia (Chronic) BPH (benign prostatic hyperplasia) (Chronic) - Past Surgical History Surgical History: coronary bypass surgery, tonsillectomy - Social History Smoking Status: Current some day smoker Alcohol: None Drugs: None - Family History Maternal History Items: No pertinent history Paternal History Items: No pertinent history Patient Problems: Active and Suspected Problems Acute renal failure superimposed on chronic kidney disease (Acute) - Physical Exam General: Alert, Oriented x3 HEENT: Atraumatic, PERRLA Oral: Moist Mucosa Neck: Supple, No JVD Lungs: - - decreased BS over lung bases Cardiovascular: Regular rate, Regular Rhythm, Normal S1, Normal S2 Abdomen: Bowel Sounds Present, Soft, Non Tender Extremities: - - +2 edema of LE Skin: No rashes Musculoskeletal: No Tenderness to Palpation of Joints or Extremities Lymphatic: No Cervical, Supraclavicular, or Inguinal Adenopathy Neurological: Cranial nerves II-XII grossly intact, Neuro grossly intact Psych/Mental Status: Normal Affect Vital Signs Temp Pulse Resp BP Pulse Ox 98.2 F 59 L 20 H 126/57 H 96 05/20/18 15:00 05/20/18 15:02 05/20/18 15:00 05/20/18 15:00 05/20/18 15:00 Oxygen Flow Rate (L/min) 4 Oxygen Delivery Method Nasal Cannula Weight: 89.5 kg Body Mass Index (BMI) 29.2 Intake and Output for Last 24 Hours 05/18/18 05/19/18 05/20/18 23:59 23:59 23:59 Intake Total 1084 / 1084 697.7 / 697.7 326.6 / 326.6 Output Total 2175 / 2175 1175 / 1175 375 / 375 Balance -1091 / -1091 -477.3 / -477.3 -48.4 / -48.4 Laboratory Tests Past 24 Hrs 05/20/18 05/20/18 05:45 05:45 WBC 10.8 RBC 3.35 L Hgb 10.1 L Hct 33.9 L MCV 101.2 H MCH 30.1 MCHC 29.8 L RDW 17.6 H RDW Differential 62.9 H Plt Count 216 MPV 9.3 Sodium 142 Potassium 3.4 L Chloride 106 Carbon Dioxide 30.0 Anion Gap 6 BUN 49 H Creatinine 1.81 H Estim Creat Clear Calc 38.84 Est GFR (MDRD) Af Amer 48 L Est GFR (MDRD) Non-Af 40 L BUN/Creatinine Ratio 27.1 H Glucose 129 H Calcium 8.4 L Magnesium 2.9 H Assessment/Plan All Active Problems Acute renal failure superimposed on chronic kidney disease (Acute) Acute respiratory failure with hypoxia (Acute) Diastolic CHF (Acute) 1- DAI on CKD DAI is most probably ATN from contrast exposure along prerenal from diuresis Baseline Cr seems around 1.4 mg/dL. Cr increased to 1.8 mg/dL today from 1.3 yesterday along with decreased UOP metolazone was stopped. Please d/c bumex drip if okay with cardiology service No need of B[employer] LEGAL ASSISTANT I explained to the patient he might need HD the coming 48-72 hours if kidney functions does not recover Avoid further IV contrast Avoid ACEI/ARB 2- Acute hypoxemic RF due to CHF Improved . I think the current respiratory distress is from B/L pleural effusion and pulmonary HTN Please stop bumex drip. Low salt diet and fluid restriction of 50 ounces daily Patient might need thoracocentesis to help expanding the lung 3- Hypokalemia: from diuretics. Please replace with Kcl 20 mEq one time Please stop Kcl supplement since the patient UOP has decreased Thank you for the consult Renal team will continue to follow Amanda Livingston MS [phone]
--- NOTE | 2018-05-20 19:07 | CON.PCM_ITS ---
Problem List (1) Acute renal failure superimposed on chronic kidney disease Status: Acute Consultation - Renal PCP/ Referring MD: Requesting physician: [] Primary care physician: SEUN Poe - History of Present Illness History of Present Illness: The patient is a 67 year old M PMH of diastolic heart failure. Patient presented with CHF exacerbation on 05/15 Patient has been on bumex drip 2 mg/hour and metolazone . Patient's breathing improved but remains SOB on 4l/m Leg edema is still there but improved Patient has CT angio on 05/18 to rule out PE. PE was negative. Patient has B/L pleural effusion R>L Renal team was consulted for DAI on CKD with worsening kidney function Patient UOP dropped today. Metolazone was stopped today. Still on Bumex drip No NSAIDs use ROS: 12 systems review is negative except for SOB and leg edema [] - Allergies Allergies: Allergies irbesartan [From Avapro] Adverse Reaction (Verified 05/15/18 20:06) Other zolpidem [From Ambien] Adverse Reaction (Verified 05/15/18 20:06) Other - Current Medications Current Medications: Current Medications Acetaminophen (Tylenol) 650 mg PO Q6H PRN PRN PRN Reason: Non-cardiac pain (mod-severe) Last Admin: 05/18/18 04:09 Dose: 650 mg Acetylcysteine (Mucomyst) 800 mg INHALATION Q6H.RT [facility] Last Admin: 05/20/18 06:47 Dose: 800 mg Albuterol Sulfate (Ventolin Aerosols) 2.5 mg INHALATION Q4H PRN PRN PRN Reason: SHORTNESS OF BREATH Last Admin: 05/18/18 16:52 Dose: 2.5 mg Albuterol/Ipratropium (Duoneb) 3 ml INHALATION Q6H.RT [facility] Last Admin: 05/20/18 12:51 Dose: 3 ml Alprazolam (Xanax) 0.5 mg PO TID PRN PRN PRN Reason: ANXIETY Last Admin: 05/19/18 21:31 Dose: 0.5 mg Amlodipine Besylate (Norvasc) 10 mg PO DAILY [facility] Last Admin: 05/20/18 09:19 Dose: 10 mg Aspirin (Ecotrin) 81 mg PO DAILY@0800 [facility] Last Admin: 05/20/18 09:19 Dose: 81 mg Atorvastatin Calcium (Lipitor) 80 mg PO QHS [facility] Last Admin: 05/19/18 21:31 Dose: 80 mg Carvedilol (Coreg) 25 mg PO BID [facility] Last Admin: 05/20/18 09:19 Dose: 25 mg Clopidogrel Bisulfate (Plavix) 75 mg PO DAILY [facility] Last Admin: 05/20/18 09:20 Dose: 75 mg Ferrous Sulfate (Ferrous Sulfate) 325 mg PO BIDCM [facility] Last Admin: 05/20/18 16:52 Dose: Not Given Finasteride (Proscar) 5 mg PO DAILY [facility] Last Admin: 05/20/18 09:20 Dose: 5 mg Heparin Sodium (Porcine) (Heparin Na) 5,000 unit SC Q12 [facility] Last Admin: 05/20/18 09:20 Dose: Not Given Hydralazine HCl (Apresoline) 100 mg PO TID [facility] Last Admin: 05/20/18 13:23 Dose: 100 mg Bumetanide 25 mg/ (Miscellaneous Information) 100 mls @ 2 mls/hr CONT INF .Q50H [facility] PRN Reason: 0.5 MG/HR Last Admin: 05/19/18 09:30 Dose: 2 mls/hr Isosorbide Mononitrate (Imdur) 60 mg PO DAILY [facility] Last Admin: 05/20/18 16:52 Dose: 60 mg Magnesium Hydroxide (Milk Of Magnesia) 30 ml PO DAILY PRN PRN Reason: Constipation Last Admin: 05/19/18 09:36 Dose: 30 ml Potassium [facility] ([facility] Last Admin: 05/20/18 09:18 Dose: 40 meq Pramipexole Dihydrochloride (Mirapex) 0.5 mg PO QHS [facility] Last Admin: 05/19/18 21:34 Dose: 0.5 mg Sertraline HCl (Zoloft) 50 mg PO DAILY [facility] Last Admin: 05/20/18 09:20 Dose: 50 mg Sodium Chloride () 5 - 30 ml IV UD PRN PRN Reason: SALINE FLUSH Last Admin: 05/19/18 09:40 Dose: 10 ml Tamsulosin HCl (Flomax) 0.4 mg PO BID [facility] Last Admin: 05/20/18 09:19 Dose: 0.4 mg - Past Medical History Past Medical History (Chronic Problems): Chronic Problems HLD (hyperlipidemia) (Chronic) HTN (hypertension) (Chronic) PAD (peripheral artery disease) (Chronic) CAD (coronary artery disease) (Chronic) COPD (chronic obstructive pulmonary disease) (Chronic) Tobacco dependence (Chronic) CKD (chronic kidney disease) (Chronic) Leukocytosis (Chronic) Anemia (Chronic) BPH (benign prostatic hyperplasia) (Chronic) - Past Surgical History Surgical History: coronary bypass surgery, tonsillectomy - Social History Smoking Status: Current some day smoker Alcohol: None Drugs: None - Family History Maternal History Items: No pertinent history Paternal History Items: No pertinent history Patient Problems: Active and Suspected Problems Acute renal failure superimposed on chronic kidney disease (Acute) - Physical Exam General: Alert, Oriented x3 HEENT: Atraumatic, PERRLA Oral: Moist Mucosa Neck: Supple, No JVD Lungs: - - decreased BS over lung bases Cardiovascular: Regular rate, Regular Rhythm, Normal S1, Normal S2 Abdomen: Bowel Sounds Present, Soft, Non Tender Extremities: - - +2 edema of LE Skin: No rashes Musculoskeletal: No Tenderness to Palpation of Joints or Extremities Lymphatic: No Cervical, Supraclavicular, or Inguinal Adenopathy Neurological: Cranial nerves II-XII grossly intact, Neuro grossly intact Psych/Mental Status: Normal Affect Vital Signs Temp Pulse Resp BP Pulse Ox 98.2 F 59 L 20 H 126/57 H 96 05/20/18 15:00 05/20/18 15:02 05/20/18 15:00 05/20/18 15:00 05/20/18 15:00 Oxygen Flow Rate (L/min) 4 Oxygen Delivery Method Nasal Cannula Weight: 89.5 kg Body Mass Index (BMI) 29.2 Intake and Output for Last 24 Hours 05/18/18 05/19/18 05/20/18 23:59 23:59 23:59 Intake Total 1084 / 1084 697.7 / 697.7 326.6 / 326.6 Output Total 2175 / 2175 1175 / 1175 375 / 375 Balance -1091 / -1091 -477.3 / -477.3 -48.4 / -48.4 Laboratory Tests Past 24 Hrs 05/20/18 05/20/18 05:45 05:45 WBC 10.8 RBC 3.35 L Hgb 10.1 L Hct 33.9 L MCV 101.2 H MCH 30.1 MCHC 29.8 L RDW 17.6 H RDW Differential 62.9 H Plt Count 216 MPV 9.3 Sodium 142 Potassium 3.4 L Chloride 106 Carbon Dioxide 30.0 Anion Gap 6 BUN 49 H Creatinine 1.81 H Estim Creat Clear Calc 38.84 Est GFR (MDRD) Af Amer 48 L Est GFR (MDRD) Non-Af 40 L BUN/Creatinine Ratio 27.1 H Glucose 129 H Calcium 8.4 L Magnesium 2.9 H Assessment/Plan All Active Problems Acute renal failure superimposed on chronic kidney disease (Acute) Acute respiratory failure with hypoxia (Acute) Diastolic CHF (Acute) 1- DAI on CKD DAI is most probably ATN from contrast exposure along prerenal from diuresis Baseline Cr seems around 1.4 mg/dL. Cr increased to 1.8 mg/dL today from 1.3 yesterday along with decreased UOP metolazone was stopped. Please d/c bumex drip if okay with cardiology service No need of [employer] MA[employer]GER I explained to the patient he might need HD the coming 48-72 hours if kidney functions does not recover Avoid further IV contrast Avoid ACEI/ARB 2- Acute hypoxemic RF due to CHF Improved . I think the current respiratory distress is from B/L pleural effusion and pulmonary HTN Please stop bumex drip. Low salt diet and fluid restriction of 50 ounces daily Patient might need thoracocentesis to help expanding the lung 3- Hypokalemia: from diuretics. Please replace with Kcl 20 mEq one time Please stop Kcl supplement since the patient UOP has decreased Thank you for the consult Renal team will continue to follow Amanda Livingston MS [phone]
[2018-05-20] MEDS: 0.9% NaCl Peripheral Flush Adult/Peds IV (20:57)
[2018-05-20] MEDS: Atorvastatin Calcium 80 MG Tablet PO (20:57)
[2018-05-20] MEDS: Pramipexole Di-HCl 0.5 MG Tablet PO (20:57)
[2018-05-20] MEDS: ALPRAZolam 0.5 MG Tablet PO (20:57)
[2018-05-21] VITALS (22 sets, daily range): BP systolic 125–162; BP diastolic 58–66; PULSE 51–77; RESP 12–24; TEMP 36.3–37.3; O2SAT 92–99
[2018-05-21] MEDS: hydrALAZINE 50 MG Tablet 100 MG PO ×3 (04:41→22:31)
[2018-05-21] MEDS: ALPRAZolam 0.5 MG Tablet PO ×2 (04:41→19:19)
--- NOTE | 2018-05-21 04:54 | NURSING ---
RN CALLED TO ROOM, PATIENT SOB, PLACED BACK ON BIPAP O2 97%, GIVEN XANAX, LUNGS CLEAR. PATIENT TOLERATED BIPAP WELL.
[2018-05-21 06:07] LABS: Hematocrit 32.8 % (40-54); Hemoglobin 9.7 g/dl (13.0-16.5); Mean Corp Hgb Conc 29.6 g/gl (32-36); Mean Corpuscular Hgb 29.3 pg (27.0-32.0); Mean Corpuscular Volume 99.1 fL (80-94); Mean Platelet Vol. 9.5 fl (6.2-12.0); Platelet Count 193 K/mm3 (150-450); RBC Distribution Width CV 17.8 % (11.6-14.6); RBC Distribution Width SD 64.8 fl (35.1-43.9); Red Blood Count 3.31 M/mm3 (4.6-6.2)
[2018-05-21 06:23] LABS: Scan Indicated on CBC? Y/N NO
[2018-05-21 06:27] LABS: Anion Gap 11 (5-15); BUN 55 mg/dL (7-18); BUN/Creat Ratio 23.3 RATIO (10-20); Calcium,Total 8.5 mg/dL (8.5-10.1); Chloride 103 mmol/L (98-107); Creatinine, Serum 2.36 mg/dL (0.70-1.30); EST Glomerular Filtration Rate 30 mL/min (>60); Est Glom Filt Rate - Afr Amer 36 mL/min (>60); Estimated Creatinine Clearance 29.79 ml/min; Glucose 140 mg/dL (74-106); Potassium 3.5 mmol/L (3.5-5.1); Sodium Level 140 mmol/L (136-145)
[2018-05-21] MEDS: Ipratropium/Albuterol Sulfate 3 ML AMPUL.NEB INHALATION ×3 (06:48→19:00)
[2018-05-21] MEDS: Acetylcysteine 800 MG/4 ML VIAL.NEB. INHALATION ×3 (06:48→19:01)
--- NOTE | 2018-05-21 07:50 | PCM.CONS.GEN ---
Reason for Consult Date of Consultation: 05/21/18 Reason for Consultation: Worsening respiratory status, need for thoracentesis History of Present Illness: The patient is a 67-year-old male, with a history as outlined below, who initially presented to the emergency department on May 16 with rather acute onset of shortness of breath. The patient had just been admitted to the hospital May 10-. During that hospitalization he was treated for decompensated heart failure and acute kidney injury. The patient was admitted to the hospital and has been medically managed for acute on chronic diastolic mediated heart failure. Attempts to volume optimize the patient with a continuous Bumex infusion led to the development of worsening renal insufficiency. The patient is currently overall net -3.3 L for the admission. He had a drop in his urine output on May 20, which prompted a consultation to be placed to nephrology. They felt the etiology for the patient's acute kidney insult was likely the consequence of probable ATN from contrast exposure along with prerenal from diuresis. The patient has been utilizing BiPAP 16/7 cm of water with an FiO2 of 35%, intimately throughout the day and routinely at night. CTA chest revealed no evidence for PE but did reveal bilateral pleural effusions, right greater than left along with associated compressive atelectasis. The patient reports the presence of shortness of breath and a mildly productive cough. Past Medical History Past Medical History (Chronic Problems): Chronic Problems HLD (hyperlipidemia) (Chronic) HTN (hypertension) (Chronic) PAD (peripheral artery disease) (Chronic) CAD (coronary artery disease) (Chronic) COPD (chronic obstructive pulmonary disease) (Chronic) Tobacco dependence (Chronic) CKD (chronic kidney disease) (Chronic) Leukocytosis (Chronic) Anemia (Chronic) BPH (benign prostatic hyperplasia) (Chronic) Allergies irbesartan [From Avapro] Adverse Reaction (Verified 05/15/18 20:06) Other zolpidem [From Ambien] Adverse Reaction (Verified 05/15/18 20:06) Other Home Medications: Ambulatory Orders Medication Instructions Recorded Aspirin [Aspirin, Baby] 81 mg PO DAILY@0800 01/28/18 Clopidogrel Bisulfate [Plavix] 75 mg PO DAILY 01/28/18 Ropinirole HCl [Requip] 1 mg PO QHS 01/28/18 Rosuvastatin Calcium [Crestor] 40 mg PO QHS 01/28/18 Tamsulosin HCl [Flomax] 0.4 mg PO BID 01/28/18 Finasteride [Proscar] 5 mg PO DAILY 04/08/18 Bumetanide 2 mg PO BID #60 tab 04/10/18 Albuterol Aerosols [Ventolin 2.5 mg INHALATION Q4H PRN 05/10/18 Aerosols] Amlodipine [Norvasc] 5 mg PO DAILY 05/10/18 Ferrous Sulfate 325 mg PO BIDCM 05/10/18 Sertraline HCl [Zoloft] 50 mg PO DAILY 05/10/18 Carvedilol [Coreg (Beta Kadi)] 25 mg PO BID #60 tab 05/13/18 Isosorbide Mononitrate [Imdur] 30 mg PO DAILY #30 tab 05/13/18 Prednisone 10 mg PO UD #22 tab 05/13/18 hydrALAZINE [Apresoline] 75 mg PO TID #100 tab 05/13/18 Surgical History: coronary bypass surgery, tonsillectomy Lives: Spouse/ Significant Other Smoking Status: Current some day smoker Tobacco Use: Cigarettes Alcohol: None Drugs: None - *Family History Maternal History Items: No pertinent history Paternal History Items: No pertinent history Review of Systems Constitutional: Reports: Weight Change. Denies: Chills, Fever Eyes: Denies: Blurred vision, Double vision HEENT: Denies: Head Aches, Sinus Congestion, Sinus Drainage Cardiovascular: Reports: Edema. Denies: Chest Pain, Palpitations Respiratory: Reports: Cough, Shortness of Breath Gastrointestinal: Denies: Abdominal Pain, Nausea, Vomiting Genitourinary: Denies: Dysuria Musculoskeletal: Denies: Joint Pain, Joint Tenderness Skin: Denies: Rash, Wounds Neurological: Denies: Numbness, Tingling, Focal weakness Psychiatric: Denies: Anxiety, Depression, Homicidal Ideations, Suicidal Ideations Hematologic/ Lymphatic: Reports: Anemia Patient Problems: Active and Suspected Problems Acute renal failure superimposed on chronic kidney disease (Acute) Objective: The patient's most recent lab work, culture data and imaging studies have all been personally reviewed. - Physical Exam General: Alert, Cooperative, No apparent distress, - - Tolerating BiPAP currently HEENT: Atraumatic, PERRLA, Normocephalic Oral: Dry Mucosa Neck: Supple, No Nodes, Trachea Midline Lungs: No rhonchi, No wheeze, No rales, Diminished - R>L, - - There is dullness to percussion of the right lung base. Cardiovascular: Regular rate, Regular Rhythm, Normal S1, Normal S2, No murmurs Abdomen: Bowel Sounds Present, Soft, Non Tender, Obese Extremities: No clubbing, No cyanosis, Edema - B/L LE Skin: No breakdown Musculoskeletal: No Tenderness to Palpation of Joints or Extremities Lymphatic: No Cervical, Supraclavicular, or Inguinal Adenopathy Neurological: Neuro grossly intact Psych/Mental Status: Flat Affect Vital Signs Temp Pulse Resp BP Pulse Ox 99.1 F 55 L 19 H 145/60 H 98 05/21/18 03:00 05/21/18 06:55 05/21/18 05:23 05/21/18 03:00 05/21/18 05:23 Oxygen Flow Rate (L/min) 3 Oxygen Delivery Method Bi-pap Weight: 197 lb Body Mass Index (BMI) 29.2 Intake and Output for Last 24 Hours 05/19/18 05/20/18 05/21/18 23:59 23:59 23:59 Intake Total 697.7 / 697.7 576.6 / 576.6 50 / 50 Output Total 1175 / 1175 475 / 475 100 / 100 Balance -477.3 / -477.3 101.6 / 101.6 -50 / -50 Laboratory Tests Past 24 Hrs 05/21/18 05/21/18 05:40 05:40 WBC 10.0 RBC 3.31 L Hgb 9.7 L Hct 32.8 L MCV 99.1 H MCH 29.3 MCHC 29.6 L RDW 17.8 H RDW Differential 64.8 H Plt Count 193 MPV 9.5 Sodium 140 Potassium 3.5 Chloride 103 Carbon Dioxide 26.0 Anion Gap 11 BUN 55 H Creatinine 2.36 H Estim Creat Clear Calc 29.79 Est GFR (MDRD) Af Amer 36 L Est GFR (MDRD) Non-Af 30 L BUN/Creatinine Ratio 23.3 H Glucose 140 H Calcium 8.5 Clinical Impression(s) from Imaging Studies Chest X-Ray 05/15/18 20:08 IMPRESSION: COPD with superimposed mild pulmonary congestion with bilateral effusions and bibasilar atelectasis Electronically Signed: Pb Lancaster MD at 20:32 EDT , Service support , Chest CTA 05/18/18 20:37 IMPRESSION: No evidence for PE. Bilateral pleural effusions worse on the right. Bilateral lower lobe atelectasis worse on the right. Atelectasis or infiltrate in the anterior segment right upper lobe and right middle lobe. Electronically Signed: Rogelio Robertson MD at 22:15 EDT , Service support , Chest Ultrasound 05/19/18 09:48 Assessment/Plan All Active Problems Acute renal failure superimposed on chronic kidney disease (Acute) Acute respiratory failure with hypoxia (Acute) Diastolic CHF (Acute) RECOMMENDATIONS: 1. Continue current medical management with attempts at volume optimization, likely anticipating the need for dialysis. 2. Given the nonemergent nature of the requested thoracentesis, I am not certain that radiology will perform such procedure given that the patient is on Plavix. 3. Continue BiPAP therapy as needed. 4. Continue scheduled bronchodilators. Okay to discontinue Mucomyst from my perspective. IMPRESSIONS: 1. Acute hypoxemic respiratory failure secondary to decompensated heart failure with evidence of bilateral pleural effusions Recommend continued medical optimization of the patient's underlying heart failure. At the present time, there is no acute emergent indication for thoracentesis. Additionally, given that the patient is currently receiving Plavix, I do not know that radiology will feel comfortable with performing an ultrasound-guided thoracentesis tomorrow. While drainage of the patient's pleural effusion may provide some temporary symptomatic relief, it will not address his underlying issue causing the effusion in the first place. Would recommend formulating a plan regarding the need for dialysis for further volume optimization. 2. Presumptive COPD of unknown severity Continue scheduled bronchodilators as ordered. I see no indication for the use of Mucomyst at this time. 3. Acute kidney injury Nephrology is following. Clinical concern for the development of ATN following contrast administration in combination with prerenal azotemia that developed as a consequence of diuresis. The patient may require eventual initiation of dialysis to assist with volume optimization. 4. History of tobacco dependence/coronary artery disease/hypertension/hyperlipidemia/depression Complicates care, management, recovery and prognosis. Continue home medications as indicated. This note was generated with [employer] software. It may contain incorrect words, spelling, and punctuation that were not noted in checking the note before signing. Code Visit Inpatient E&M: 89712 Init Hosp L3
--- NOTE | 2018-05-21 08:22 | PCM.PN.HOSP ---
Patient Problems: Active and Suspected Problems Acute renal failure superimposed on chronic kidney disease (Acute) Subjective: Reports breathing is the same Objective: NAD Vitals/I&O's: Vital Signs Temp Pulse Resp BP Pulse Ox 99.1 F 55 L 18 145/60 H 99 05/21/18 03:00 05/21/18 06:55 05/21/18 06:48 05/21/18 03:00 05/21/18 06:48 Oxygen Flow Rate (L/min) 3 Oxygen Delivery Method Bi-pap Weight: 197 lb Body Mass Index (BMI) 29.2 Intake and Output for Last 24 Hours 05/19/18 05/20/18 05/21/18 23:59 23:59 23:59 Intake Total 697.7 / 697.7 576.6 / 576.6 50 / 50 Output Total 1175 / 1175 475 / 475 100 / 100 Balance -477.3 / -477.3 101.6 / 101.6 -50 / -50 General: Alert, Oriented x3 Neck: No JVD Lungs: - - decreased BS R greater than L base COPD changes Cardiovascular: Regular rate, Regular Rhythm, Normal S1, No murmurs, - - monitor SB Abdomen: Bowel Sounds Present, Soft, Obese Extremities: Edema Psych/Mental Status: Normal Affect, Appropriate Laboratory Results 05/21/18 05:40: WBC 10.0, RBC 3.31 L, Hgb 9.7 L, Hct 32.8 L, MCV 99.1 H, MCH 29.3, MCHC 29.6 L, RDW 17.8 H, RDW Differential 64.8 H, Plt Count 193, MPV 9.5 05/21/18 05:40: Sodium 140, Potassium 3.5, Chloride 103, Carbon Dioxide 26.0, Anion Gap 11, BUN 55 H, Creatinine 2.36 H, Estim Creat Clear Calc 29.79, Est GFR (MDRD) Af Amer 36 L, Est GFR (MDRD) Non-Af 30 L, BUN/Creatinine Ratio 23.3 H, Glucose 140 H, Calcium 8.5 Current Medications Acetaminophen (Tylenol) 650 mg PO Q6H PRN PRN PRN Reason: Non-cardiac pain (mod-severe) Last Admin: 05/18/18 04:09 Dose: 650 mg Acetylcysteine (Mucomyst) 800 mg INHALATION Q6H.RT [facility] Last Admin: 05/21/18 06:48 Dose: 800 mg Albuterol Sulfate (Ventolin Aerosols) 2.5 mg INHALATION Q4H PRN PRN PRN Reason: SHORTNESS OF BREATH Last Admin: 05/18/18 16:52 Dose: 2.5 mg Albuterol/Ipratropium (Duoneb) 3 ml INHALATION Q6H.RT [facility] Last Admin: 05/21/18 06:48 Dose: 3 ml Alprazolam (Xanax) 0.5 mg PO TID PRN PRN PRN Reason: ANXIETY Last Admin: 05/21/18 04:41 Dose: 0.5 mg Amlodipine Besylate (Norvasc) 10 mg PO DAILY [facility] Last Admin: 05/20/18 09:19 Dose: 10 mg Aspirin (Ecotrin) 81 mg PO DAILY@0800 [facility] Last Admin: 05/20/18 09:19 Dose: 81 mg Atorvastatin Calcium (Lipitor) 80 mg PO QHS [facility] Last Admin: 05/20/18 20:57 Dose: 80 mg Carvedilol (Coreg) 25 mg PO BID [facility] Last Admin: 05/20/18 20:57 Dose: 25 mg Clopidogrel Bisulfate (Plavix) 75 mg PO DAILY [facility] Last Admin: 05/20/18 09:20 Dose: 75 mg Ferrous Sulfate (Ferrous Sulfate) 325 mg PO BIDCM [facility] Last Admin: 05/20/18 16:52 Dose: Not Given Finasteride (Proscar) 5 mg PO DAILY [facility] Last Admin: 05/20/18 09:20 Dose: 5 mg Heparin Sodium (Porcine) (Heparin Na) 5,000 unit SC Q12 [facility] Last Admin: 05/20/18 20:57 Dose: 5,000 u Hydralazine HCl (Apresoline) 100 mg PO TID [facility] Last Admin: 05/21/18 04:41 Dose: 100 mg Isosorbide Mononitrate (Imdur) 60 mg PO DAILY [facility] Last Admin: 05/20/18 16:52 Dose: 60 mg Magnesium Hydroxide (Milk Of Magnesia) 30 ml PO DAILY PRN PRN Reason: Constipation Last Admin: 05/19/18 09:36 Dose: 30 ml Pramipexole Dihydrochloride (Mirapex) 0.5 mg PO QHS [facility] Last Admin: 05/20/18 20:57 Dose: 0.5 mg Sertraline HCl (Zoloft) 50 mg PO DAILY [facility] Last Admin: 05/20/18 09:20 Dose: 50 mg Sodium Chloride () 5 - 30 ml IV UD PRN PRN Reason: SALINE FLUSH Last Admin: 05/20/18 20:57 Dose: 10 ml Tamsulosin HCl (Flomax) 0.4 mg PO BID [facility] Last Admin: 05/20/18 20:57 Dose: 0.4 mg Medical Necessity - Tobacco Use Smoking Status: Current some day smoker Tobacco Use: Cigarettes Assessment/Plan All Active Problems Acute renal failure superimposed on chronic kidney disease (Acute) Acute respiratory failure with hypoxia (Acute) Diastolic CHF (Acute) 67-year-old gentleman with past medical history of hypertension, hyperlipidemia, COPD, CAD/CABG, admitted 05/15/2018 with dyspnea secondary to acute on chronic diastolic congestive heart failure. Echocardiogram 04/08/2018 revealed EF 55%, RVSP 42. Clinical course complicated by acute hypoxemic respiratory failure requiring supplemental O2, BiPAP at at bedtime. Chest x-ray revealed right greater than left pleural effusions, confirmed by chest CT. He had chest ultrasound 05/19/18 documenting pleural effusions. Hospital course complicated by DAI/ATN, multifactorial. Nephrology notes reviewed and appreciated -- All diuretics, offending meds and K stopped. He has no cough or fever. Imaging studies to include XR chest 05/15/2018, CTA chest 05/18/18 reviewed (no PE, stable moderate R and small left pleural effusion, emphysema, RUL , RML atelectasis vs infiltrate) Would hold off on L heart cath at this time as dyspnea appears most consistent with multifactorial respiratory issues Weight up 5# since 05/16/18 (192 --> 197) 1. Acute on chronic diastolic CHF continue amlodipine, carvedilol, nitrates, hydralazine BP controlled 2. Acute hypoxemic respiratory failure; O2 sats adequate; BiPAP current settings 16/7 FiO2 35%; sats 97 - 98% In setting of pleural effusions, underlying pulmonary HTN Thoracentesis planned To mobilize out of bed 3. Recent admission for community-acquired pneumonia; completed treatment 4. CAD, CABG Noted on aspirin, Plavix, statin, carvedilol, isosorbide and amlodipine 5. Hypertension 6. Hyperlipidemia 7. COPD -continuing pulmonary toilet DuoNeb every 6 hours, albuterol as needed, Mucomyst every 6 hour 8. BPH, with chronic Charles catheter, followed by urology Dr. Villa Noted on tamsulosin, finasteride 9. Oliguric AK I on CKD 3 stable anemia in CKD -->Hemoglobins 9 - 10 creatinine baseline 1.4 --> 2.36 today Secondary to meds, diuresis, contrast exam 05/18/18 Diuretics stopped Nephrology following Daily lab 10. Depression, anxiety Sertraline, Xanax 0.5 mg 3 times daily as needed 11. DVT prophylaxis Subcu heparin Code Visit Inpatient E&M: 19917 Subs Hosp L2
--- NOTE | 2018-05-21 08:34 | PN_ITS ---
Patient Problems: Active and Suspected Problems Acute renal failure superimposed on chronic kidney disease (Acute) Subjective: Reports breathing is the same Objective: NAD Vitals/I&O's: Vital Signs Temp Pulse Resp BP Pulse Ox 99.1 F 55 L 18 145/60 H 99 05/21/18 03:00 05/21/18 06:55 05/21/18 06:48 05/21/18 03:00 05/21/18 06:48 Oxygen Flow Rate (L/min) 3 Oxygen Delivery Method Bi-pap Weight: 197 lb Body Mass Index (BMI) 29.2 Intake and Output for Last 24 Hours 05/19/18 05/20/18 05/21/18 23:59 23:59 23:59 Intake Total 697.7 / 697.7 576.6 / 576.6 50 / 50 Output Total 1175 / 1175 475 / 475 100 / 100 Balance -477.3 / -477.3 101.6 / 101.6 -50 / -50 General: Alert, Oriented x3 Neck: No JVD Lungs: - - decreased BS R greater than L base COPD changes Cardiovascular: Regular rate, Regular Rhythm, Normal S1, No murmurs, - - monitor SB Abdomen: Bowel Sounds Present, Soft, Obese Extremities: Edema Psych/Mental Status: Normal Affect, Appropriate Laboratory Results 05/21/18 05:40: WBC 10.0, RBC 3.31 L, Hgb 9.7 L, Hct 32.8 L, MCV 99.1 H, MCH 29.3, MCHC 29.6 L, RDW 17.8 H, RDW Differential 64.8 H, Plt Count 193, MPV 9.5 05/21/18 05:40: Sodium 140, Potassium 3.5, Chloride 103, Carbon Dioxide 26.0, Anion Gap 11, BUN 55 H, Creatinine 2.36 H, Estim Creat Clear Calc 29.79, Est GFR (MDRD) Af Amer 36 L, Est GFR (MDRD) Non-Af 30 L, BUN/Creatinine Ratio 23.3 H , Glucose 140 H, Calcium 8.5 Current Medications Acetaminophen (Tylenol) 650 mg PO Q6H PRN PRN PRN Reason: Non-cardiac pain (mod-severe) Last Admin: 05/18/18 04:09 Dose: 650 mg Acetylcysteine (Mucomyst) 800 mg INHALATION Q6H.RT [facility] Last Admin: 05/21/18 06:48 Dose: 800 mg Albuterol Sulfate (Ventolin Aerosols) 2.5 mg INHALATION Q4H PRN PRN PRN Reason: SHORTNESS OF BREATH Last Admin: 05/18/18 16:52 Dose: 2.5 mg Albuterol/Ipratropium (Duoneb) 3 ml INHALATION Q6H.RT [facility] Last Admin: 05/21/18 06:48 Dose: 3 ml Alprazolam (Xanax) 0.5 mg PO TID PRN PRN PRN Reason: ANXIETY Last Admin: 05/21/18 04:41 Dose: 0.5 mg Amlodipine Besylate (Norvasc) 10 mg PO DAILY [facility] Last Admin: 05/20/18 09:19 Dose: 10 mg Aspirin (Ecotrin) 81 mg PO DAILY@0800 [facility] Last Admin: 05/20/18 09:19 Dose: 81 mg Atorvastatin Calcium (Lipitor) 80 mg PO QHS [facility] Last Admin: 05/20/18 20:57 Dose: 80 mg Carvedilol (Coreg) 25 mg PO BID [facility] Last Admin: 05/20/18 20:57 Dose: 25 mg Clopidogrel Bisulfate (Plavix) 75 mg PO DAILY [facility] Last Admin: 05/20/18 09:20 Dose: 75 mg Ferrous Sulfate (Ferrous Sulfate) 325 mg PO BIDCM [facility] Last Admin: 05/20/18 16:52 Dose: Not Given Finasteride (Proscar) 5 mg PO DAILY [facility] Last Admin: 05/20/18 09:20 Dose: 5 mg Heparin Sodium (Porcine) (Heparin Na) 5,000 unit SC Q12 [facility] Last Admin: 05/20/18 20:57 Dose: 5,000 u Hydralazine HCl (Apresoline) 100 mg PO TID [facility] Last Admin: 05/21/18 04:41 Dose: 100 mg Isosorbide Mononitrate (Imdur) 60 mg PO DAILY [facility] Last Admin: 05/20/18 16:52 Dose: 60 mg Magnesium Hydroxide (Milk Of Magnesia) 30 ml PO DAILY PRN PRN Reason: Constipation Last Admin: 05/19/18 09:36 Dose: 30 ml Pramipexole Dihydrochloride (Mirapex) 0.5 mg PO QHS [facility] Last Admin: 05/20/18 20:57 Dose: 0.5 mg Sertraline HCl (Zoloft) 50 mg PO DAILY [facility] Last Admin: 05/20/18 09:20 Dose: 50 mg Sodium Chloride () 5 - 30 ml IV UD PRN PRN Reason: SALINE FLUSH Last Admin: 05/20/18 20:57 Dose: 10 ml Tamsulosin HCl (Flomax) 0.4 mg PO BID [facility] Last Admin: 05/20/18 20:57 Dose: 0.4 mg Medical Necessity - Tobacco Use Smoking Status: Current some day smoker Tobacco Use: Cigarettes Assessment/Plan All Active Problems Acute renal failure superimposed on chronic kidney disease (Acute) Acute respiratory failure with hypoxia (Acute) Diastolic CHF (Acute) 67-year-old gentleman with past medical history of hypertension, hyperlipidemia , COPD, CAD/CABG, admitted 05/15/2018 with dyspnea secondary to acute on chronic diastolic congestive heart failure. Echocardiogram 04/08/2018 revealed EF 55%, RVSP 42. Clinical course complicated by acute hypoxemic respiratory failure requiring supplemental O2, BiPAP at at bedtime. Chest x-ray revealed right greater than left pleural effusions, confirmed by chest CT. He had chest ultrasound 05/19/18 documenting pleural effusions. Hospital course complicated by DAI/ATN, multifactorial. Nephrology notes reviewed and appreciated -- All diuretics, offending meds and K stopped. He has no cough or fever. Imaging studies to include XR chest 05/15/2018, CTA chest 05/18/18 reviewed (no PE , stable moderate R and small left pleural effusion, emphysema, RUL , RML atelectasis vs infiltrate) Would hold off on L heart cath at this time as dyspnea appears most consistent with multifactorial respiratory issues Weight up 5# since 05/16/18 (192 --> 197) 1. Acute on chronic diastolic CHF continue amlodipine, carvedilol, nitrates, hydralazine BP controlled 2. Acute hypoxemic respiratory failure; O2 sats adequate; BiPAP current settings 16/7 FiO2 35%; sats 97 - 98% In setting of pleural effusions, underlying pulmonary HTN Thoracentesis planned To mobilize out of bed 3. Recent admission for community-acquired pneumonia; completed treatment 4. CAD, CABG Noted on aspirin, Plavix, statin, carvedilol, isosorbide and amlodipine 5. Hypertension 6. Hyperlipidemia 7. COPD -continuing pulmonary toilet DuoNeb every 6 hours, albuterol as needed , Mucomyst every 6 hour 8. BPH, with chronic Charles catheter, followed by urology Dr. Villa Noted on tamsulosin, finasteride 9. Oliguric AK I on CKD 3 stable anemia in CKD -->Hemoglobins 9 - 10 creatinine baseline 1.4 --> 2.36 today Secondary to meds, diuresis, contrast exam 05/18/18 Diuretics stopped Nephrology following Daily lab 10. Depression, anxiety Sertraline, Xanax 0.5 mg 3 times daily as needed 11. DVT prophylaxis Subcu heparin Code Visit Inpatient E&M: 58008 Subs Hosp L2
[2018-05-21] MEDS: Ferrous Sulfate 325 MG Tablet PO (08:45)
[2018-05-21] MEDS: amLODIPine 10 MG Tablet PO (08:45)
[2018-05-21] MEDS: Aspirin E.C. 81 MG Tablet PO (08:45)
[2018-05-21] MEDS: Carvedilol 25 MG Tablet PO ×2 (08:45→22:31)
[2018-05-21] MEDS: Sertraline 50 MG Tablet PO (08:45)
[2018-05-21] MEDS: Finasteride 5 MG Tablet PO (08:46)
[2018-05-21] MEDS: Isosorbide Mononitrate 60 MG Tablet PO (08:46)
[2018-05-21] MEDS: Clopidogrel Bisulfate 75 MG Tablet PO (08:46)
[2018-05-21] MEDS: Heparin Injection (Vial) 5,000 UNIT/ML VIAL 5000 UNIT SC ×2 (08:46→22:31)
[2018-05-21] MEDS: Tamsulosin HCl 0.4 MG Capsule PO ×2 (08:47→22:31)
--- NOTE | 2018-05-21 11:59 | PCM.PN.CARD ---
Subjectve: The patient continues to cough and produce sputum. He believes his breathing is somewhat better. However he states he is still very debilitated secondary to his breathing. He denies any ongoing chest discomfort at this time. Objective: Vital Signs Temp Pulse Resp BP Pulse Ox 97.4 F L 54 L 20 H 150/64 H 92 05/21/18 09:00 05/21/18 11:10 05/21/18 09:00 05/21/18 09:00 05/21/18 09:00 Oxygen Flow Rate (L/min) 3 Oxygen Delivery Method Nasal Cannula Weight: 197 lb Body Mass Index (BMI) 29.2 Intake and Output for Last 24 Hours 05/19/18 05/20/18 05/21/18 23:59 23:59 23:59 Intake Total 697.7 / 697.7 576.6 / 576.6 50 / 50 Output Total 1175 / 1175 475 / 475 100 / 100 Balance -477.3 / -477.3 101.6 / 101.6 -50 / -50 General: Awake, Alert, Oriented x 3, Cooperative, Ill Appearing Neck: No JVD Lungs: - - Diminished breath sounds bilaterally Cardiovascular: Regular Rhythm, Normal S1 Abdomen: Bowel Sounds Present, Soft, Non Tender Extremities: - - Wearing bilateral support stockings 05/21/18 05:40: WBC 10.0, RBC 3.31 L, Hgb 9.7 L, Hct 32.8 L, MCV 99.1 H, MCH 29.3, MCHC 29.6 L, RDW 17.8 H, RDW Differential 64.8 H, Plt Count 193, MPV 9.5 05/21/18 05:40: Sodium 140, Potassium 3.5, Chloride 103, Carbon Dioxide 26.0, Anion Gap 11, BUN 55 H, Creatinine 2.36 H, Est GFR (MDRD) Af Amer 36 L, Est GFR (MDRD) Non-Af 30 L, BUN/Creatinine Ratio 23.3 H, Glucose 140 H, Calcium 8.5 Rhythm: Sinus rhythm Medical Necessity - Tobacco Use Smoking Status: Current some day smoker Tobacco Use: Cigarettes Assessment/Plan 1. Acute on chronic diastolic mediated CHF The patient presents with recurrent symptoms. At the present time he is undergone noninvasive evaluation. He has continued medical management. However, based on his elevated creatinine levels, his medications are being adjusted. Based upon his previous cardiovascular evaluation by Dr. Barrientos there was a comment if the patient had ongoing concerns that he may need further definitive evaluation with right/left cardiac cath. However prior to the patient being able to proceed in such manner he will have to have improvement in his underlying respiratory status where he can lie supine to go through such a procedure. Also, his creatinine levels have increased, thus an attempt has been made to adjust his medications with the hopes of bringing his creatinine level under better control. Otherwise there is concern about proceeding with diagnostic cardiac catheterizations such as concerns of IV contrast related nephropathy. He is also being evaluated by Dr. Salazar of pulmonology. Per Dr. Salazar's consultation note, if the patient does require thoracentesis, this would have to be coordinated with radiology as to whether or not this could be performed while the patient is on antiplatelet therapy with clopidogrel. 2. CAD The patient states he has a history of underlying CAD. He has not required revascularization therapy. His cardiac enzymes are negative thus far and his ECG demonstrates no acute changes. However there is still concern as to whether this may be playing a role in his symptoms and objective findings. He will continue to be monitored and will undergo additional evaluation when he is able. In the meantime he should continue medical therapy as tolerated. 3. Hyperlipidemia The patient should continue risk factor evaluation and care. 4. Hypertension Continue antihypertensive therapy in order to optimize his cardiovascular risk factors, etc. and help with his acute on chronic diastolic mediated CHF. 5. COPD The patient has a history of underlying COPD. He states he has been evaluated in the hospital in the past by Dr. Caicedo pulmonology. He may need pulmonology input during his hospitalization to assist with his underlying pulmonary disease process, etc. 6. Chronic renal insufficiency He does have an elevated creatinine level. This would have to be taken into consideration with future invasive evaluation care including studies requiring IV contrast to minimize the risk of IV contrast related nephropathy. In the interim, if his creatinine levels do not improve, then he may need to be considered for nephrology evaluation for consideration for hemodialysis. Comment: The patient is case was discussed with the patient and his family members present.
--- NOTE | 2018-05-21 14:33 | RAD_ITS ---
STUDY: X-RAY CHEST REASON FOR EXAM: Male, 67 years old. Shortness of breath and CHF exacerbation TECHNIQUE: Single view of the chest was obtained COMPARISON: May 15, 2018 chest radiograph FINDINGS: The small to moderate-sized right-sided pleural effusion. Small left-sided pleural effusion. Bibasilar airspace opacities and bilateral pulmonary edema with cardiomegaly. Midline sternotomy wires. Vascular calcifications. No pneumothorax Changes in the thoracic spine. IMPRESSION: Bilateral pulmonary edema and cardiomegaly with moderate right-sided and small left sided pleural effusion and patchy bibasilar airspace opacities Electronically Signed: Ilan Arriaza, at 15:06 EDT Tel , Service support , RAD/Chest 1 View (Portable)
--- NOTE | 2018-05-21 14:54 | PCM.PN.REN ---
Patient Problems: Active and Suspected Problems Acute renal failure superimposed on chronic kidney disease (Acute) Subjective: Patient remains in stable SOB. On NC at 4 l/m No nausea No vomiting. No CP - Physical Exam General: Oriented x3 HEENT: Atraumatic Oral: Moist Mucosa Neck: Supple, No JVD Lungs: - - decreased BS over both lungs bases Cardiovascular: Regular rate, Regular Rhythm, Normal S1, Normal S2 Abdomen: Bowel Sounds Present, Soft, Non Tender Extremities: No edema, - - +2 edema of LE Skin: No rashes Lymphatic: No Cervical, Supraclavicular, or Inguinal Adenopathy Neurological: Cranial nerves II-XII grossly intact, Neuro grossly intact Psych/Mental Status: Normal Affect Vital Signs Temp Pulse Resp BP Pulse Ox 97.4 F L 59 L 18 150/64 H 94 05/21/18 09:00 05/21/18 13:24 05/21/18 12:48 05/21/18 09:00 05/21/18 12:48 Oxygen Flow Rate (L/min) 4 Oxygen Delivery Method Nasal Cannula Weight: 89.358 kg Body Mass Index (BMI) 29.2 Intake and Output for Last 24 Hours 05/19/18 05/20/18 05/21/18 23:59 23:59 23:59 Intake Total 697.7 / 697.7 576.6 / 576.6 290 / 290 Output Total 1175 / 1175 475 / 475 150 / 150 Balance -477.3 / -477.3 101.6 / 101.6 140 / 140 Laboratory Tests Past 24 Hrs 05/21/18 05/21/18 05:40 05:40 WBC 10.0 RBC 3.31 L Hgb 9.7 L Hct 32.8 L MCV 99.1 H MCH 29.3 MCHC 29.6 L RDW 17.8 H RDW Differential 64.8 H Plt Count 193 MPV 9.5 Sodium 140 Potassium 3.5 Chloride 103 Carbon Dioxide 26.0 Anion Gap 11 BUN 55 H Creatinine 2.36 H Estim Creat Clear Calc 29.79 Est GFR (MDRD) Af Amer 36 L Est GFR (MDRD) Non-Af 30 L BUN/Creatinine Ratio 23.3 H Glucose 140 H Calcium 8.5 Medical Necessity - Tobacco Use Smoking Status: Current some day smoker Tobacco Use: Cigarettes Assessment/Plan All Active Problems Acute renal failure superimposed on chronic kidney disease (Acute) Acute respiratory failure with hypoxia (Acute) Diastolic CHF (Acute) 1- DAI on CKD DAI is most probably ATN from contrast exposure along prerenal from diuresis Baseline Cr seems around 1.4 mg/dL. Cr continues to rise. Last trend 1.8->2.3 mg/dL off diuretic since 05/20 evening No need of DAMAGE INSIDE ADJUSTER I explained to the patient he might need HD the coming 48-72 hours if kidney functions does not recover Avoid further IV contrast Avoid ACEI/ARB 2- Acute hypoxemic RF due to CHF Improved .On stable NC at 4 l/m I think the current respiratory distress is from B/L pleural effusion and pulmonary HTN Avoid diuretics for now Low salt diet and fluid restriction of 50 ounces daily Patient might need thoracocentesis to help expanding the lung 3- Hypokalemia: from diuretics. resolved with replacement Renal team will continue to follow D/W Dr. [place] Livingston [place] [phone]
--- NOTE | 2018-05-21 14:57 | PN.RENAL_ITS ---
Patient Problems: Active and Suspected Problems Acute renal failure superimposed on chronic kidney disease (Acute) Subjective: Patient remains in stable SOB. On NC at 4 l/m No nausea No vomiting. No CP - Physical Exam General: Oriented x3 HEENT: Atraumatic Oral: Moist Mucosa Neck: Supple, No JVD Lungs: - - decreased BS over both lungs bases Cardiovascular: Regular rate, Regular Rhythm, Normal S1, Normal S2 Abdomen: Bowel Sounds Present, Soft, Non Tender Extremities: No edema, - - +2 edema of LE Skin: No rashes Lymphatic: No Cervical, Supraclavicular, or Inguinal Adenopathy Neurological: Cranial nerves II-XII grossly intact, Neuro grossly intact Psych/Mental Status: Normal Affect Vital Signs Temp Pulse Resp BP Pulse Ox 97.4 F L 59 L 18 150/64 H 94 05/21/18 09:00 05/21/18 13:24 05/21/18 12:48 05/21/18 09:00 05/21/18 12:48 Oxygen Flow Rate (L/min) 4 Oxygen Delivery Method Nasal Cannula Weight: 89.358 kg Body Mass Index (BMI) 29.2 Intake and Output for Last 24 Hours 05/19/18 05/20/18 05/21/18 23:59 23:59 23:59 Intake Total 697.7 / 697.7 576.6 / 576.6 290 / 290 Output Total 1175 / 1175 475 / 475 150 / 150 Balance -477.3 / -477.3 101.6 / 101.6 140 / 140 Laboratory Tests Past 24 Hrs 05/21/18 05/21/18 05:40 05:40 WBC 10.0 RBC 3.31 L Hgb 9.7 L Hct 32.8 L MCV 99.1 H MCH 29.3 MCHC 29.6 L RDW 17.8 H RDW Differential 64.8 H Plt Count 193 MPV 9.5 Sodium 140 Potassium 3.5 Chloride 103 Carbon Dioxide 26.0 Anion Gap 11 BUN 55 H Creatinine 2.36 H Estim Creat Clear Calc 29.79 Est GFR (MDRD) Af Amer 36 L Est GFR (MDRD) Non-Af 30 L BUN/Creatinine Ratio 23.3 H Glucose 140 H Calcium 8.5 Medical Necessity - Tobacco Use Smoking Status: Current some day smoker Tobacco Use: Cigarettes Assessment/Plan All Active Problems Acute renal failure superimposed on chronic kidney disease (Acute) Acute respiratory failure with hypoxia (Acute) Diastolic CHF (Acute) 1- DAI on CKD DAI is most probably ATN from contrast exposure along prerenal from diuresis Baseline Cr seems around 1.4 mg/dL. Cr continues to rise. Last trend 1.8->2.3 mg /dL off diuretic since 05/20 evening No need of FUR NAILER I explained to the patient he might need HD the coming 48-72 hours if kidney functions does not recover Avoid further IV contrast Avoid ACEI/ARB 2- Acute hypoxemic RF due to CHF Improved .On stable NC at 4 l/m I think the current respiratory distress is from B/L pleural effusion and pulmonary HTN Avoid diuretics for now Low salt diet and fluid restriction of 50 ounces daily Patient might need thoracocentesis to help expanding the lung 3- Hypokalemia: from diuretics. resolved with replacement Renal team will continue to follow D/W Dr. [place] Livingston [place] [phone]
--- NOTE | 2018-05-21 22:00 | NURSING ---
spoke with daughter, Ping Rodríguez, about patient's POC and plan for his thoracentesis tomorrow. clarified the concern about the plavix and statted that per dayshift RN- Dr. Barrientos did not see it being a problem.
[2018-05-21] MEDS: Atorvastatin Calcium 80 MG Tablet PO (22:31)
[2018-05-21] MEDS: Pramipexole Di-HCl 0.5 MG Tablet PO (22:31)
[2018-05-22] VITALS (36 sets, daily range): BP systolic 131–157; BP diastolic 52–95; PULSE 58–75; RESP 12–28; TEMP 36.4–37.1; O2SAT 90–100; BMI 30.7
[2018-05-22] MEDS: Ipratropium/Albuterol Sulfate 3 ML AMPUL.NEB INHALATION ×3 (00:57→12:34)
[2018-05-22] MEDS: hydrALAZINE 50 MG Tablet 100 MG PO ×2 (06:15→20:38)
[2018-05-22 06:30] LABS: Anion Gap 13 (5-15); BUN 68 mg/dL (7-18); BUN/Creat Ratio 24.4 RATIO (10-20); Calcium,Total 8.6 mg/dL (8.5-10.1); Chloride 101 mmol/L (98-107); Creatinine, Serum 2.79 mg/dL (0.70-1.30); EST Glomerular Filtration Rate 24 mL/min (>60); Est Glom Filt Rate - Afr Amer 29 mL/min (>60); Glucose 108 mg/dL (74-106); Potassium 3.7 mmol/L (3.5-5.1); Sodium Level 137 mmol/L (136-145)
[2018-05-22] MEDS: Acetylcysteine 800 MG/4 ML VIAL.NEB. INHALATION ×2 (07:05→12:34)
[2018-05-22 08:14] LABS: Prothrombin Time (Protime)PT. 12.9 SECONDS (11.7-14.9)
[2018-05-22 08:15] LABS: Partial Thromboplast Time 31.1 Seconds (24.1-36.2)
[2018-05-22] MEDS: ALPRAZolam 0.5 MG Tablet PO ×3 (08:36→20:43)
--- NOTE | 2018-05-22 11:00 | US_ITS ---
PROCEDURE: ULTRASOUND GUIDED THORACENTESIS. CLINICAL INDICATION: Pleural effusions. Shortness of breath. Dyspnea. Prior Thoracentesis history. PHYSICIAN: Demian Warren M.D. MEDICATIONS: 1% lidocaine administered subcutaneously for local anesthesia. ACCESS SITE: Right lower thorax, posterior approach. CATHETER: 5 Mosotho thoracentesis needle/catheter system. FLUID: Approximately 1705 mL of straw-colored pleural fluid removed. COMPLICATIONS: None immediate. The risks, benefits, and alternatives to the procedure and local anesthesia were explained to the patient. The specific risks of bleeding, infection, nerve damage, allergic reaction and pneumothorax requiring chest tube insertion were discussed and accepted. Written and witnessed informed consent was obtained. PROCEDURE: Ultrasonographic evaluation of the right lower pleural space was carried out. An adequate pocket was identified. The patient was placed in the sitting, upright position. The overlying skin was prepped and draped in sterile fashion. 1% lidocaine was administered subcutaneously for local anesthesia. Under ultrasound guidance, a 5 Mosotho thoracentesis needle/catheter system was advanced into the right posterior lower pleural fluid collection. The inner stylet was removed and there was spontaneous flow of pleural fluid. Approximately 1705 mL of fluid was manually aspirated. The catheter was removed. Hemostasis was achieved and a sterile dressing was applied. A specimen was collected and sent to the laboratory for analysis, as requested by the referring clinician. The patient tolerated the procedure well, without immediate complications. A chest x-ray was ordered and accomplished within an hour. US/Thoracentesis W US IMPRESSION: Successful ultrasound-guided right thoracentesis. Electronically Signed: Demian Warren, at 13:43 EDT Tel , Service support ,
--- NOTE | 2018-05-22 11:26 | PCM.PN.REN ---
Patient Problems: Active and Suspected Problems Acute renal failure superimposed on chronic kidney disease (Acute) Subjective: events noted anuric now creatinine worsening - Physical Exam General: Alert, Oriented x3, Cooperative HEENT: Atraumatic, PERRLA, EOMI, Normocephalic Neck: Supple, No JVD, Negative Carotid Bruits Lungs: Clear to auscultation, Normal air movement Cardiovascular: Regular rate, No murmurs Abdomen: Bowel Sounds Present, Soft, Non Tender Extremities: No edema, Capillary Refill Less than 3 Seconds Skin: No rashes, No breakdown Musculoskeletal: No Tenderness to Palpation of Joints or Extremities Neurological: Cranial nerves II-XII grossly intact Psych/Mental Status: Normal Affect, Appropriate Vital Signs Temp Pulse Resp BP Pulse Ox 97.8 F 68 20 H 145/95 H 96 05/22/18 06:14 05/22/18 07:05 05/22/18 07:05 05/22/18 06:15 05/22/18 07:05 Oxygen Flow Rate (L/min) 6 Oxygen Delivery Method Bi-pap Weight: 91.8 kg Body Mass Index (BMI) 29.2 Intake and Output for Last 24 Hours 05/20/18 05/21/18 05/22/18 23:59 23:59 23:59 Intake Total 576.6 / 576.6 650 / 650 30 / 30 Output Total 475 / 475 275 / 275 75 / 75 Balance 101.6 / 101.6 375 / 375 -45 / -45 Laboratory Tests Past 24 Hrs 05/22/18 05/22/18 05:20 07:54 PT 12.9 INR 1.0 APTT 31.1 Sodium 137 Potassium 3.7 Chloride 101 Carbon Dioxide 23.0 Anion Gap 13 BUN 68 H Creatinine 2.79 H Estim Creat Clear Calc 25.20 Est GFR (MDRD) Af Amer 29 L Est GFR (MDRD) Non-Af 24 L BUN/Creatinine Ratio 24.4 H Glucose 108 H Calcium 8.6 Medical Necessity - Tobacco Use Smoking Status: Current some day smoker Tobacco Use: Cigarettes Assessment/Plan All Active Problems Acute renal failure superimposed on chronic kidney disease (Acute) Acute respiratory failure with hypoxia (Acute) Diastolic CHF (Acute) 1- DAI on CKD DAI is most probably ATN from contrast exposure along prerenal from diuresis Baseline Cr seems around 1.4 mg/dL. creatinine continues to get worse. anuric. will go ahead and plan for dialysis. d/w Dr tracey Lua He has recurrent CHF with likely contribution from renal A stenosis. Both his coronaries and renal A needs to be looked at. Once volume status is better, will go ahead and plan for dialysis. 2- Acute hypoxemic RF due to CHF remains overloaded. HD today 3- Hypokalemia: better d/w Family at bedside
--- NOTE | 2018-05-22 11:44 | RAD_ITS ---
STUDY: X-RAY CHEST REASON FOR EXAM: Male, 67 years old. Right thoracentesis, check for pneumothorax. TECHNIQUE: Chest AP upright inspiration view status post right thoracentesis. COMPARISON: Chest 05/21/2018. FINDINGS: EKG wires overlie chest. The lungs appear fairly well expanded without large gross pneumothorax suggested. Mild diffuse left greater right bibasal opacities are seen consistent with pleural fluid and atelectasis, improved especially in the right base. Normal size heart for projection is visualized. Stable appearing mediastinum and justyn. Moderate increased visualized pulmonary arteries. Stable visualized heavily calcified aortic arch and descending thoracic aorta. Normal visualized thoracic spine. Normal visualized ribs, clavicles, and shoulders. There is no demonstrated abnormality of the visualized soft tissue structures of the upper abdomen. No subdiaphragmatic free air seen grossly. No change sternal wires, mediastinal/pericardial surgical clips or faintly coronary artery suture markers identified. RAD/Chest 1 View IMPRESSION: No pneumothorax identified status post right thoracentesis. Decreased right pleural effusion. Moderate CHF/fluid overload. Electronically Signed: Demian Warren, at 13:34 EDT Tel , Service support ,
--- NOTE | 2018-05-22 11:59 | RAD_ITS ---
STUDY: X-RAY CHEST REASON FOR EXAM: Male, 67 years old. Right thoracentesis, check for pneumothorax. TECHNIQUE: Chest AP upright exhalation view status post right thoracentesis. COMPARISON: Chest 05/21/2018. FINDINGS: EKG wires overlie chest. The lungs appear fairly well expanded without large gross pneumothorax suggested. Mild diffuse left greater right bibasal opacities are seen consistent with pleural fluid and atelectasis, improved especially in the right base. Normal size heart for projection is visualized. Stable appearing mediastinum and justyn. Moderate increased visualized pulmonary arteries. Stable visualized heavily calcified aortic arch and descending thoracic aorta. Normal visualized thoracic spine. Normal visualized ribs, clavicles, and shoulders. There is no demonstrated abnormality of the visualized soft tissue structures of the upper abdomen. No subdiaphragmatic free air seen grossly. No change sternal wires or faintly seen within likely cerclage wire projecting over the midthoracic spine. RAD/Chest 1 View IMPRESSION: No pneumothorax identified status post right thoracentesis. Decreased right pleural effusion. Moderate CHF/fluid overload. Electronically Signed: Demian Warren, at 13:35 EDT Tel , Service support ,
--- NOTE | 2018-05-22 13:32 | CASEMGMT ---
Per Dr. Alaniz, [facility] to send dialysis referral for pt at this time. This RN CM to room discuss preference for dialysis center/location. Pt states no preference on company and family states that pt's would like [place] location. Per [facility], [facility] and [facility] are in-network at this time. Referral faxed to [facility] at this time. Hep B panel has not been resulted yet and pt to have tunnel cath placed today. [place] RN CM
--- NOTE | 2018-05-22 13:50 | PCM.PROGNOTE ---
Patient Problems: Active and Suspected Problems Acute renal failure superimposed on chronic kidney disease (Acute) Subjective: Patient did okay overnight. Patient did have a thoracentesis with a reported 2 L removed. Patient reports subjective improvement in dyspnea at this time. Patient is currently on nasal cannula. Patient denies any epistaxis. Patient is reportedly to have a tunneled hemodialysis line placed later today and states that he will be receiving dialysis today. Objective: All imaging was personally reviewed. Serial chest x-ray show improvement in right pleural effusion with no pneumothorax appreciated. - Physical Exam General: Alert, Oriented x3, Cooperative, No apparent distress, - - No conversational dyspnea noted at this time. HEENT: Atraumatic, PERRLA, EOMI, Normocephalic, - - No scleral icterus or injection noted. Oral: Moist Mucosa, No Gingival or Mucosal Lesions/ Ulcerations, - - Poor dentition. Neck: Supple, No JVD, No Nodes, Trachea Midline Lungs: No rhonchi, No wheeze, No rales, Diminished, - - Symmetric expansion. No dullness to percussion. Cardiovascular: Regular rate, Regular Rhythm, Normal S1, Normal S2, Murmur, No rub noted, No Gallop Abdomen: Bowel Sounds Present, Soft, Non Tender, Non-Distended, Obese Extremities: No cyanosis, Capillary Refill Less than 3 Seconds, Clubbing, Edema Skin: No rashes, No breakdown Musculoskeletal: No Tenderness to Palpation of Joints or Extremities Lymphatic: No Cervical, Supraclavicular, or Inguinal Adenopathy Neurological: Cranial nerves II-XII grossly intact, Neuro grossly intact Psych/Mental Status: Alert and oriented to time, place, person, mood and affect Vital Signs Temp Pulse Resp BP Pulse Ox 36.4 C L 75 20 H 147/64 H 96 05/22/18 12:10 05/22/18 12:34 05/22/18 12:34 05/22/18 12:10 05/22/18 12:34 Oxygen Flow Rate (L/min) 4 Oxygen Delivery Method Nasal Cannula Weight: 91.8 kg Body Mass Index (BMI) 29.2 Intake and Output for Last 24 Hours 05/20/18 05/21/18 05/22/18 23:59 23:59 23:59 Intake Total 576.6 / 576.6 650 / 650 30 / 30 Output Total 475 / 475 275 / 275 125 / 125 Balance 101.6 / 101.6 375 / 375 -95 / -95 Laboratory Tests Past 24 Hrs 05/22/18 05/22/18 05:20 07:54 PT 12.9 INR 1.0 APTT 31.1 Sodium 137 Potassium 3.7 Chloride 101 Carbon Dioxide 23.0 Anion Gap 13 BUN 68 H Creatinine 2.79 H Estim Creat Clear Calc 25.20 Est GFR (MDRD) Af Amer 29 L Est GFR (MDRD) Non-Af 24 L BUN/Creatinine Ratio 24.4 H Glucose 108 H Calcium 8.6 Clinical Impression(s) from Imaging Studies Chest X-Ray 05/21/18 14:33 Thoracentesis Ultrasound 05/22/18 11:00 IMPRESSION: Successful ultrasound-guided right thoracentesis. Electronically Signed: Demian Warren at 13:43 EDT Tel , Service support , Chest X-Ray 05/22/18 11:44 IMPRESSION: No pneumothorax identified status post right thoracentesis. Decreased right pleural effusion. Moderate CHF/fluid overload. Electronically Signed: Demian Warren at 13:34 EDT Tel , Service support , Chest X-Ray 05/22/18 11:59 IMPRESSION: No pneumothorax identified status post right thoracentesis. Decreased right pleural effusion. Moderate CHF/fluid overload. Electronically Signed: Demian Warren at 13:35 EDT Tel , Service support , Medical Necessity - Tobacco Use Smoking Status: Current some day smoker Tobacco Use: Cigarettes Assessment/Plan All Active Problems Acute renal failure superimposed on chronic kidney disease (Acute) Acute respiratory failure with hypoxia (Acute) Diastolic CHF (Acute) RECOMMENDATIONS: 1. Await placement of hemodialysis catheter 2. Wean oxygen as tolerated 3. Continue BiPAP therapy as needed. 4. Continue scheduled bronchodilators. Discontinue Mucomyst from my perspective. IMPRESSIONS: 1. Acute hypoxemic respiratory failure secondary to decompensated heart failure with evidence of bilateral pleural effusions Patient has tolerated thoracentesis and has clinical improvement. Unfortunately, this is likely to recur with time and less fluid status can be addressed more aggressively. Patient reportedly to have a temporary hemodialysis line placed with initiation of hemodialysis. No complications from procedures including pneumothorax or bleeding have been noted at this time. 2. Presumptive COPD of unknown severity Continue scheduled bronchodilators as ordered. Outpatient pulmonary function tests have been requested in the past, but patient continues to have repeated hospitalization interfering with testing. 3. Acute kidney injury Nephrology is following. Clinical concern for the development of ATN following contrast administration in combination with prerenal azotemia that developed as a consequence of diuresis. Reportedly, patient will be initiated on hemodialysis tonight. This has not been verified with nephrology directly. 4. History of tobacco dependence/coronary artery disease/hypertension/hyperlipidemia/depression Complicates care, management, recovery and prognosis. Continue home medications as indicated. This note was generated with [employer] dictation software. It may contain incorrect words, spelling, and punctuation that were not noted in checking the note before signing. Code Visit Inpatient E&M: 24096 Subs Hosp L2
--- NOTE | 2018-05-22 14:15 | PN_ITS ---
Patient Problems: Active and Suspected Problems Acute renal failure superimposed on chronic kidney disease (Acute) Subjective: Patient did okay overnight. Patient did have a thoracentesis with a reported 2 L removed. Patient reports subjective improvement in dyspnea at this time. Patient is currently on nasal cannula. Patient denies any epistaxis. Patient is reportedly to have a tunneled hemodialysis line placed later today and states that he will be receiving dialysis today. Objective: All imaging was personally reviewed. Serial chest x-ray show improvement in right pleural effusion with no pneumothorax appreciated. - Physical Exam General: Alert, Oriented x3, Cooperative, No apparent distress, - - No conversational dyspnea noted at this time. HEENT: Atraumatic, PERRLA, EOMI, Normocephalic, - - No scleral icterus or injection noted. Oral: Moist Mucosa, No Gingival or Mucosal Lesions/ Ulcerations, - - Poor dentition. Neck: Supple, No JVD, No Nodes, Trachea Midline Lungs: No rhonchi, No wheeze, No rales, Diminished, - - Symmetric expansion. No dullness to percussion. Cardiovascular: Regular rate, Regular Rhythm, Normal S1, Normal S2, Murmur, No rub noted, No Gallop Abdomen: Bowel Sounds Present, Soft, Non Tender, Non-Distended, Obese Extremities: No cyanosis, Capillary Refill Less than 3 Seconds, Clubbing, Edema Skin: No rashes, No breakdown Musculoskeletal: No Tenderness to Palpation of Joints or Extremities Lymphatic: No Cervical, Supraclavicular, or Inguinal Adenopathy Neurological: Cranial nerves II-XII grossly intact, Neuro grossly intact Psych/Mental Status: Alert and oriented to time, place, person, mood and affect Vital Signs Temp Pulse Resp BP Pulse Ox 36.4 C L 75 20 H 147/64 H 96 05/22/18 12:10 05/22/18 12:34 05/22/18 12:34 05/22/18 12:10 05/22/18 12:34 Oxygen Flow Rate (L/min) 4 Oxygen Delivery Method Nasal Cannula Weight: 91.8 kg Body Mass Index (BMI) 29.2 Intake and Output for Last 24 Hours 05/20/18 05/21/18 05/22/18 23:59 23:59 23:59 Intake Total 576.6 / 576.6 650 / 650 30 / 30 Output Total 475 / 475 275 / 275 125 / 125 Balance 101.6 / 101.6 375 / 375 -95 / -95 Laboratory Tests Past 24 Hrs 05/22/18 05/22/18 05:20 07:54 PT 12.9 INR 1.0 APTT 31.1 Sodium 137 Potassium 3.7 Chloride 101 Carbon Dioxide 23.0 Anion Gap 13 BUN 68 H Creatinine 2.79 H Estim Creat Clear Calc 25.20 Est GFR (MDRD) Af Amer 29 L Est GFR (MDRD) Non-Af 24 L BUN/Creatinine Ratio 24.4 H Glucose 108 H Calcium 8.6 Clinical Impression(s) from Imaging Studies Chest X-Ray 05/21/18 14:33 Thoracentesis Ultrasound 05/22/18 11:00 IMPRESSION: Successful ultrasound-guided right thoracentesis. Electronically Signed: Demian Warren at 13:43 EDT Tel , Service support , Chest X-Ray 05/22/18 11:44 IMPRESSION: No pneumothorax identified status post right thoracentesis. Decreased right pleural effusion. Moderate CHF/fluid overload. Electronically Signed: Demian Warren at 13:34 EDT Tel , Service support , Chest X-Ray 05/22/18 11:59 IMPRESSION: No pneumothorax identified status post right thoracentesis. Decreased right pleural effusion. Moderate CHF/fluid overload. Electronically Signed: Demian Warren at 13:35 EDT Tel , Service support , Medical Necessity - Tobacco Use Smoking Status: Current some day smoker Tobacco Use: Cigarettes Assessment/Plan All Active Problems Acute renal failure superimposed on chronic kidney disease (Acute) Acute respiratory failure with hypoxia (Acute) Diastolic CHF (Acute) RECOMMENDATIONS: 1. Await placement of hemodialysis catheter 2. Wean oxygen as tolerated 3. Continue BiPAP therapy as needed. 4. Continue scheduled bronchodilators. Discontinue Mucomyst from my perspective. IMPRESSIONS: 1. Acute hypoxemic respiratory failure secondary to decompensated heart failure with evidence of bilateral pleural effusions Patient has tolerated thoracentesis and has clinical improvement. Unfortunately, this is likely to recur with time and less fluid status can be addressed more aggressively. Patient reportedly to have a temporary hemodialysis line placed with initiation of hemodialysis. No complications from procedures including pneumothorax or bleeding have been noted at this time. 2. Presumptive COPD of unknown severity Continue scheduled bronchodilators as ordered. Outpatient pulmonary function tests have been requested in the past, but patient continues to have repeated hospitalization interfering with testing. 3. Acute kidney injury Nephrology is following. Clinical concern for the development of ATN following contrast administration in combination with prerenal azotemia that developed as a consequence of diuresis. Reportedly, patient will be initiated on hemodialysis tonight. This has not been verified with nephrology directly. 4. History of tobacco dependence/coronary artery disease/hypertension/ hyperlipidemia/depression Complicates care, management, recovery and prognosis. Continue home medications as indicated. This note was generated with [employer] dictation software. It may contain incorrect words, spelling, and punctuation that were not noted in checking the note before signing. Code Visit Inpatient E&M: 52722 Subs Hosp L2
--- NOTE | 2018-05-22 14:32 | PN_ITS ---
Patient Problems: Active and Suspected Problems Acute renal failure superimposed on chronic kidney disease (Acute) Subjective: Pt resting comfortably in bed NAD. Family present. No concerns. ~ 2 liters tapped right lung this AM. Significant relief of SOB. No CP, pressure, tightness , dizziness, LH. Pt agreeable to dialysis. - Physical Exam General: Alert, Oriented x3, Cooperative HEENT: Atraumatic, PERRLA, EOMI, Normocephalic Neck: Supple, No JVD, Negative Carotid Bruits Lungs: Diminished, Wheezes - right lung Cardiovascular: Regular rate, No murmurs Abdomen: Bowel Sounds Present, Soft, Non Tender Extremities: No edema, Capillary Refill Less than 3 Seconds Skin: No rashes, No breakdown Musculoskeletal: No Tenderness to Palpation of Joints or Extremities Neurological: Cranial nerves II-XII grossly intact Psych/Mental Status: Normal Affect, Appropriate, Alert and oriented to time, place, person, mood and affect Vital Signs Temp Pulse Resp BP Pulse Ox 97.6 F L 75 20 H 147/64 H 96 05/22/18 12:10 05/22/18 12:34 05/22/18 12:34 05/22/18 12:10 05/22/18 12:34 Oxygen Flow Rate (L/min) 4 Oxygen Delivery Method Nasal Cannula Weight: 202 lb 6.15 oz Body Mass Index (BMI) 29.2 Intake and Output for Last 24 Hours 05/20/18 05/21/18 05/22/18 23:59 23:59 23:59 Intake Total 576.6 / 576.6 650 / 650 30 / 30 Output Total 475 / 475 275 / 275 125 / 125 Balance 101.6 / 101.6 375 / 375 -95 / -95 Laboratory Tests Past 24 Hrs 05/22/18 05/22/18 05:20 07:54 PT 12.9 INR 1.0 APTT 31.1 Sodium 137 Potassium 3.7 Chloride 101 Carbon Dioxide 23.0 Anion Gap 13 BUN 68 H Creatinine 2.79 H Estim Creat Clear Calc 25.20 Est GFR (MDRD) Af Amer 29 L Est GFR (MDRD) Non-Af 24 L BUN/Creatinine Ratio 24.4 H Glucose 108 H Calcium 8.6 Medical Necessity - Tobacco Use Smoking Status: Current some day smoker Tobacco Use: Cigarettes Assessment/Plan All Active Problems Acute renal failure superimposed on chronic kidney disease (Acute) Acute respiratory failure with hypoxia (Acute) Diastolic CHF (Acute) 1. Acute on chronic diastolic CHF, pulmonary HTN - no lasix 2/2 worsening renal function. Will need dialysis. Thora today. SOB improved. Cath when patient is able to tolerate the procedure. 2. Acute hypoxic resp failure 2/2 above. Aerosols, O2, bipap qhs. Possibly underlying COPD. Pulm following. 3. DAI - no improvement. Tonight cath placement followed by dialysis. Dr. Alaniz following. Oliguric. 4. CAD, CABG - asa, plavix, statin, coreg, imdur, norvasc 5. HTN - stable, mildly elevated. 6. HLD - statin 7. Possible underlying. COPD - pulm following. Continue aerosols. IS/PEP therapy. 8. BPH - chronic cath. pt of dr. Villa. Maintain for strict I/O 9. Depression/anx - home meds 10. Anemia - mild decrease. trend. DC planning: PTOT. DVT ppx: heparin This patient was seen by Itz Bennett PA-C under the supervision of Dr. Workman.
--- NOTE | 2018-05-22 14:46 | CON.PCM_ITS ---
Problem List (1) Acute renal failure superimposed on chronic kidney disease Status: Acute (2) Diastolic CHF Status: Acute Qualifiers: (3) COPD (chronic obstructive pulmonary disease) Status: Chronic Qualifiers: (4) CKD (chronic kidney disease) Status: Chronic Qualifiers: Reason for Consult Date of Consultation: 05/22/18 Reason for Consultation: Acute on chronic renal failure. In need of tunneled dialysis catheters. History of Present Illness: The patient is a 67 year old M who presented to the ED with increased shortness of breath and feeling of fullness with fluid. Patient has a history of chronic diastolic CHF, COPD, nicotine dependency, M.I., stroke. Patient has a history of CABG x 3 approximately 7 years ago. His last cardiac stent was placed in 2017. Patient is maintained on daily ASA and Plavix. His general counsel was in [place]. He currently switched to Dr. Barrientos. Cardiology would like to perform a cardiac cath once patient becomes more stable. Patient has had a transthoracic echocardiogram on 04/30 which demonstrated LVEF 55% and left atrium moderately enlarged. Patient has COPD however he does not follow with a shirring machine operator. He is not currently on oxygen at home. Patient does not follow with a quality control specialist. He has never been on dialysis previously. Patient was hospitalized in January [address] Villa was consulted at that time for BPH. A Charles catheter was inserted. He has had this catheter ever since. Patient's creatinine has increased from 1.50 to 2.79. Patient's urine output has slowly decreased. Patient was sent for a right thoracentesis in radiology, 1700 cc of fluid was removed. Patient has had multiple hospitalizations for similar symptoms within the last month. Past Medical History Past Medical History (Chronic Problems): Chronic Problems HLD (hyperlipidemia) (Chronic) HTN (hypertension) (Chronic) PAD (peripheral artery disease) (Chronic) CAD (coronary artery disease) (Chronic) COPD (chronic obstructive pulmonary disease) (Chronic) Tobacco dependence (Chronic) CKD (chronic kidney disease) (Chronic) Leukocytosis (Chronic) Anemia (Chronic) BPH (benign prostatic hyperplasia) (Chronic) Allergies irbesartan [From Avapro] Adverse Reaction (Verified 05/15/18 20:06) Other zolpidem [From Ambien] Adverse Reaction (Verified 05/15/18 20:06) Other Home Medications: Ambulatory Orders Medication Instructions Recorded Aspirin [Aspirin, Baby] 81 mg PO DAILY@0800 01/28/18 Clopidogrel Bisulfate [Plavix] 75 mg PO DAILY 01/28/18 Ropinirole HCl [Requip] 1 mg PO QHS 01/28/18 Rosuvastatin Calcium [Crestor] 40 mg PO QHS 01/28/18 Tamsulosin HCl [Flomax] 0.4 mg PO BID 01/28/18 Finasteride [Proscar] 5 mg PO DAILY 04/08/18 Bumetanide 2 mg PO BID #60 tab 04/10/18 Albuterol Aerosols [Ventolin 2.5 mg INHALATION Q4H PRN 05/10/18 Aerosols] Amlodipine [Norvasc] 5 mg PO DAILY 05/10/18 Ferrous Sulfate 325 mg PO BIDCM 05/10/18 Sertraline HCl [Zoloft] 50 mg PO DAILY 05/10/18 Carvedilol [Coreg (Beta Kadi)] 25 mg PO BID #60 tab 05/13/18 Isosorbide Mononitrate [Imdur] 30 mg PO DAILY #30 tab 05/13/18 Prednisone 10 mg PO UD #22 tab 05/13/18 hydrALAZINE [Apresoline] 75 mg PO TID #100 tab 05/13/18 Surgical History: coronary bypass surgery, tonsillectomy Lives: Spouse/ Significant Other Smoking Status: Current some day smoker Tobacco Use: Cigarettes Alcohol: None Drugs: None - *Family History Maternal History Items: No pertinent history Paternal History Items: No pertinent history Review of Systems Constitutional: Reports: Anorexia, Fatigue HEENT: Denies: Head Aches, Sinus Congestion, Sinus Drainage Cardiovascular: Denies: Chest Pain, Palpitations Respiratory: Reports: Cough, Shortness of Breath, Sputum production Gastrointestinal: Denies: Abdominal Pain, Nausea, Vomiting Genitourinary: Reports: Retention Musculoskeletal: Denies: Joint Pain, Joint Tenderness Skin: Denies: Rash, Wounds Neurological: Denies: Numbness, Tingling, Focal weakness Psychiatric: Reports: Anxiety Hematologic/ Lymphatic: Reports: Anemia, Easy Bruising, Easy Bleeding Patient Problems: Active and Suspected Problems Acute renal failure superimposed on chronic kidney disease (Acute) - Physical Exam General: Alert, Oriented x3, Cooperative HEENT: Atraumatic, PERRLA, EOMI, Normocephalic Neck: Supple, No JVD, Negative Carotid Bruits Lungs: Clear to auscultation, Diminished - bilateral lower lobes Cardiovascular: Regular rate, No murmurs Abdomen: Bowel Sounds Present, Soft, Non Tender Extremities: No edema, Capillary Refill Less than 3 Seconds Skin: No rashes, No breakdown Musculoskeletal: No Tenderness to Palpation of Joints or Extremities Neurological: Neuro grossly intact Psych/Mental Status: Normal Affect, Appropriate Vital Signs Temp Pulse Resp BP Pulse Ox 97.6 F L 75 20 H 147/64 H 96 05/22/18 12:10 05/22/18 12:34 05/22/18 12:34 05/22/18 12:10 05/22/18 12:34 Oxygen Flow Rate (L/min) 4 Oxygen Delivery Method Nasal Cannula Weight: 202 lb 6.15 oz Body Mass Index (BMI) 29.2 Intake and Output for Last 24 Hours 05/20/18 05/21/18 05/22/18 23:59 23:59 23:59 Intake Total 576.6 / 576.6 650 / 650 30 / 30 Output Total 475 / 475 275 / 275 125 / 125 Balance 101.6 / 101.6 375 / 375 -95 / -95 Laboratory Tests Past 24 Hrs 05/22/18 05/22/18 05:20 07:54 PT 12.9 INR 1.0 APTT 31.1 Sodium 137 Potassium 3.7 Chloride 101 Carbon Dioxide 23.0 Anion Gap 13 BUN 68 H Creatinine 2.79 H Estim Creat Clear Calc 25.20 Est GFR (MDRD) Af Amer 29 L Est GFR (MDRD) Non-Af 24 L BUN/Creatinine Ratio 24.4 H Glucose 108 H Calcium 8.6 Assessment/Plan All Active Problems Acute renal failure superimposed on chronic kidney disease (Acute) Acute respiratory failure with hypoxia (Acute) Diastolic CHF (Acute) I have been consulted in conjunction with Dr. Lua Impression: Acute on chronic renal failure. In need of tunneled dialysis catheters. Chronic diastolic CHF. COPD. Plan: Patient was discussed with Dr. Lua. Dr. Lua will plan to perform a right chest tunneled dialysis catheters. Procedure details, risks and benefits have been explained. Patient and his daughter have had the opportunity to ask and have questions answered. Patient verbally understands and agrees with the plan. Thank you for allowing me to participate in this patient's care. My recommendations will be available via medical records. Code Visit Office Visits / Consults: [id number] IP Consult L3
[2018-05-22] MEDS: Cefazolin 2 GM in 0.9% Normal Saline 100 ML IV (17:02)
[2018-05-22] MEDS: Bupivacaine Mpf 0.5% 30 ML VIAL OPERA.SITE (17:28)
[2018-05-22] MEDS: Heparin 10,000 UNITS/10 ML Vial 10000 UNITS (17:45)
--- NOTE | 2018-05-22 17:52 | PCM.OPRPT ---
Problem List (1) Acute renal failure superimposed on chronic kidney disease Status: Acute Qualifiers: Acute renal failure type: unspecified Chronic kidney disease stage: stage 5, not on chronic dialysis Qualified Code(s): N17.9 - Acute kidney failure, unspecified; N18.5 - Chronic kidney disease, stage 5 Report of Operation Date of Procedure: 05/22/18 Pre-Operative Diagnosis: Acute cardiopulmonary renal failure Post-Operative Diagnosis: Same Surgery/Procedure Performed:: Right internal jugular 19 cm pre-curved palindrome catheter placement. Reference number [id number] lot #[id number] expiry date 11/19/2022 Description of Surgical Findings:: Timeout and informed consent was obtained. 67-year-old gent was taken the operating room. She was placed upon the table with head of bed elevated to assist with respiration. Ancef 2 g given intravenously preoperatively. The right neck was sterilely prepped and draped. The patient was then slightly placed more level. Ultrasound was performed. The right internal jugular vein was identified however due to the patient's deep respiratory effort there was dramatic movement of the right internal jugular vein. 1% lidocaine mixed 50-50 with 0.5% Marcaine was used as local anesthetic. Total 24 cc was used. Tediously and carefully under ultrasound guidance a micropuncture needle was advanced in the right internal jugular vein and down Seldinger wire technique was placed. Fluoroscopy fortunately demonstrated a micropuncture wire to be in good position. Local was instilled down upon the chest wall. The 19 cm pre-curved palindrome catheter was tunneled from the chest to the neck site. A micropuncture sheath was placed over the wire. This was exchanged out for an 035 J-wire. Serial dilatation was performed. The introducing sheath dilator was placed. The catheter was advanced through the sheath the sheath was split the catheter was positioned at the SVC atrial junction. It aspirated easily. It was secured to the skin with interrupted 3-0 nylon. The counter neck incision was closed with interrupted 5-0 Vicryl subdermal stitches. Steri-Strips and Telfa OpSite dressings applied at the neck. A silver impregnated dressing was placed at the chest exit site with an OpSite dressing. Sponge and instrument and needle counts were reported to the surgeon to be correct. Blood loss was minimal. Specimens none. Drains none. He was taken to the recovery area in satisfactory condition. Stat portable chest x-ray is pending. Demian Lua M.D., F.A.C.S.
--- NOTE | 2018-05-22 17:56 | OP.PCM_ITS ---
Problem List (1) Acute renal failure superimposed on chronic kidney disease Status: Acute Qualifiers: Acute renal failure type: unspecified Chronic kidney disease stage: stage 5 , not on chronic dialysis Qualified Code(s): N17.9 - Acute kidney failure, unspecified; N18.5 - Chronic kidney disease, stage 5 Report of Operation Date of Procedure: 05/22/18 Pre-Operative Diagnosis: Acute cardiopulmonary renal failure Post-Operative Diagnosis: Same Surgery/Procedure Performed:: Right internal jugular 19 cm pre-curved palindrome catheter placement. Reference number [id number] lot #[id number] expiry date 11/19/2022 Description of Surgical Findings:: Timeout and informed consent was obtained. 67-year-old gent was taken the operating room. She was placed upon the table with head of bed elevated to assist with respiration. Ancef 2 g given intravenously preoperatively. The right neck was sterilely prepped and draped. The patient was then slightly placed more level. Ultrasound was performed. The right internal jugular vein was identified however due to the patient's deep respiratory effort there was dramatic movement of the right internal jugular vein. 1% lidocaine mixed 50-50 with 0.5% Marcaine was used as local anesthetic. Total 24 cc was used. Tediously and carefully under ultrasound guidance a micropuncture needle was advanced in the right internal jugular vein and down Seldinger wire technique was placed. Fluoroscopy fortunately demonstrated a micropuncture wire to be in good position. Local was instilled down upon the chest wall. The 19 cm pre- curved palindrome catheter was tunneled from the chest to the neck site. A micropuncture sheath was placed over the wire. This was exchanged out for an 035 J-wire. Serial dilatation was performed. The introducing sheath dilator was placed. The catheter was advanced through the sheath the sheath was split the catheter was positioned at the SVC atrial junction. It aspirated easily. It was secured to the skin with interrupted 3-0 nylon. The counter neck incision was closed with interrupted 5-0 Vicryl subdermal stitches. Steri- Strips and Telfa OpSite dressings applied at the neck. A silver impregnated dressing was placed at the chest exit site with an OpSite dressing. Sponge and instrument and needle counts were reported to the surgeon to be correct. Blood loss was minimal. Specimens none. Drains none. He was taken to the recovery area in satisfactory condition. Stat portable chest x-ray is pending. Demian Lua M.D., F.A.C.S.
--- NOTE | 2018-05-22 18:18 | RAD_ITS ---
STUDY: X-RAY CHEST REASON FOR EXAM: Male, 67 years old. Line placement TECHNIQUE: Single AP portable view of the chest. COMPARISON: Earlier the same day FINDINGS: Central catheter on the right extends to the lower superior vena cava. There worsening lower lung opacities with consolidation and moderate pleural effusions. Sternal cerclage wires are present from a prior sternotomy. There is cardiac enlargement. Normal mediastinum and justyn. Normal visualized pulmonary arteries. Normal visualized aortic arch and descending thoracic aorta. Normal visualized thoracic spine. Normal visualized ribs, clavicles, and shoulders. There is no demonstrated abnormality of the visualized soft tissue structures of the upper abdomen. RAD/Chest 1 View (Portable) IMPRESSION: Central catheter placement. No pneumothorax. Increasing lower lung infiltrates or edema and pleural effusions. Electronically Signed: Kamari Tucker MD at 19:20 EDT , Service support ,
[2018-05-22] MEDS: Tamsulosin HCl 0.4 MG Capsule PO (20:39)
[2018-05-22] MEDS: Carvedilol 25 MG Tablet PO (20:40)
[2018-05-22] MEDS: Pramipexole Di-HCl 0.5 MG Tablet PO (20:40)
[2018-05-22] MEDS: Heparin Injection (Vial) 5,000 UNIT/ML VIAL 5000 UNIT SC (20:40)
[2018-05-22] MEDS: Atorvastatin Calcium 80 MG Tablet PO (20:41)
[2018-05-23] VITALS (25 sets, daily range): BP systolic 124–148; BP diastolic 41–84; PULSE 56–77; RESP 12–30; TEMP 35.8–37.3; O2SAT 94–98
[2018-05-23] MEDS: Ipratropium/Albuterol Sulfate 3 ML AMPUL.NEB INHALATION ×3 (00:24→19:01)
[2018-05-23] MEDS: hydrALAZINE 50 MG Tablet 100 MG PO ×3 (05:36→21:12)
[2018-05-23 06:48] LABS: Absolute Lymphocyte Count 0.68 X10^3/ul (0.83-4.51); Absolute Neutrophil Count 8.8 X10^3/uL (2.0-7.7); Basophil# 0.01 X10^3/uL; Basophil% 0.1 % (0-1); Eosinophil# 0.16 X10^3/uL; Eosinophils% 1.5 % (0-5); Hematocrit 31.9 % (40-54); Hemoglobin 9.7 g/dl (13.0-16.5); Lymphocyte # 0.68 X10^3/ul (4.0); Lymphocyte % 6.5 % (19-41); Mean Corp Hgb Conc 30.4 g/gl (32-36); Mean Corpuscular Hgb 30.1 pg (27.0-32.0); Mean Corpuscular Volume 99.1 fL (80-94); Mean Platelet Vol. 10.6 fl (6.2-12.0); Monocyte# 0.69 X10^3/uL; Monocyte% 6.6 % (0-10); Neutrophil # 8.84 X10^3/uL (2.7-7.7); Neutrophil % 85.1 % (47-70); Platelet Count 192 K/mm3 (150-450); RBC Distribution Width SD 59.8 fl (35.1-43.9); Red Blood Count 3.22 M/mm3 (4.6-6.2); White Blood Count 10.4 K/mm3 (4.4-11.0)
[2018-05-23 06:53] LABS: Anion Gap 10 (5-15); BUN 71 mg/dL (7-18); BUN/Creat Ratio 29.5 RATIO (10-20); Calcium,Total 8.4 mg/dL (8.5-10.1); Chloride 105 mmol/L (98-107); Creatinine, Serum 2.41 mg/dL (0.70-1.30); EST Glomerular Filtration Rate 29 mL/min (>60); Est Glom Filt Rate - Afr Amer 35 mL/min (>60); Estimated Creatinine Clearance 29.17 ml/min; Glucose 138 mg/dL (74-106); Potassium 3.7 mmol/L (3.5-5.1); Sodium Level 141 mmol/L (136-145)
[2018-05-23 06:55] LABS: POSITIVE COUNT NO; POSITIVE DIFFERENTIAL NO; POSITIVE MORPHOLOGY NO
--- NOTE | 2018-05-23 07:19 | PCM.PN.SRG ---
Patient Problems: Active and Suspected Problems Acute renal failure superimposed on chronic kidney disease (Acute) Subjective: Patient evaluated resting in bed. He was currently receiving a breathing treatment. Patient having difficulty breathing with productive cough. Patient denies pain at his dialysis catheter site. Dialysis treatment to start this morning. Slight drainage over night. No active drainage this morning. - Physical Exam General: Alert, Oriented x3, Cooperative Neck: - - Right chest catheters- intact. Dry blood noted on the dressing. Vital Signs Temp Pulse Resp BP Pulse Ox 97.4 F L 66 29 H 145/56 H 94 05/23/18 02:50 05/23/18 05:36 05/23/18 05:25 05/23/18 05:36 05/23/18 05:25 Oxygen Flow Rate (L/min) 4 Oxygen Delivery Method Bi-pap Weight: 194 lb 7.163 oz Body Mass Index (BMI) 30.7 Intake and Output for Last 24 Hours 05/21/18 05/22/18 05/23/18 23:59 23:59 23:59 Intake Total 650 / 650 650 / 650 100 / 100 Output Total 275 / 275 500 / 500 225 / 225 Balance 375 / 375 150 / 150 -125 / -125 Laboratory Tests Past 24 Hrs 05/22/18 05/23/18 05/23/18 07:54 06:00 06:00 WBC 10.4 RBC 3.22 L Hgb 9.7 L Hct 31.9 L MCV 99.1 H MCH 30.1 MCHC 30.4 L RDW 17.0 H RDW Differential 59.8 H Plt Count 192 MPV 10.6 Immature Gran % (Auto) 0.200 Neut % (Auto) 85.1 H Lymph % (Auto) 6.5 L [place] % (Auto) 6.6 Eos % (Auto) 1.5 Baso % (Auto) 0.1 Absolute Neuts (auto) 8.8 H Absolute Lymphs (auto) 0.68 L Total Counted Not Reportable PT 12.9 INR 1.0 APTT 31.1 Sodium 141 Potassium 3.7 Chloride 105 Carbon Dioxide 26.0 Anion Gap 10 BUN 71 H Creatinine 2.41 H Estim Creat Clear Calc 29.17 Est GFR (MDRD) Af Amer 35 L Est GFR (MDRD) Non-Af 29 L BUN/Creatinine Ratio 29.5 H Glucose 138 H Calcium 8.4 L Medical Necessity - Tobacco Use Smoking Status: Current some day smoker Tobacco Use: Cigarettes Assessment/Plan All Active Problems Acute renal failure superimposed on chronic kidney disease (Acute) Acute respiratory failure with hypoxia (Acute) Diastolic CHF (Acute) I am following this patient in conjunction with Dr. Lua S/p right tunneled dialysis catheter placement Ready for use Code Visit Inpatient E&M: 29118 Subs Hosp L1 - NO CHARGE; POST-OP
[2018-05-23] MEDS: Heparin Injection (Vial) 5,000 UNIT/ML VIAL 5000 UNIT SC (08:37)
--- NOTE | 2018-05-23 09:36 | CPS ---
pt wished to be placed on nasal cannula. Bipap placed on standby and 4 lpm nasal cannula applied. Saturation on 4 lpm 94%. Nurse aware of change.
--- NOTE | 2018-05-23 11:01 | PN.CARD_ITS ---
Subjectve: Patient sitting up in bed, still unable to lay down flat. Status post right- sided thoracentesis yesterday removing about 1700 cc of fluid. He is status post right dialysis catheter placement in the subclavian vein, and reports breathing better, but still feels extremely tired. Creatinine has stabilized and has not worsened after discontinuation of diuretic therapy. He is awaiting hemodialysis later on today. Telemetry shows normal sinus rhythm/sinus bradycardia. Objective: Vital Signs Temp Pulse Resp BP Pulse Ox 97.8 F 62 20 H 132/41 H 95 05/23/18 09:15 05/23/18 09:15 05/23/18 09:15 05/23/18 09:15 05/23/18 09:15 Oxygen Flow Rate (L/min) 4 Oxygen Delivery Method Nasal Cannula Weight: 194 lb 7.163 oz Body Mass Index (BMI) 30.7 Intake and Output for Last 24 Hours 05/21/18 05/22/18 05/23/18 23:59 23:59 23:59 Intake Total 650 / 650 650 / 650 100 / 100 Output Total 275 / 275 500 / 500 225 / 225 Balance 375 / 375 150 / 150 -125 / -125 General: Awake, Alert, Oriented x 3 HEENT: PERRL, EOMI, Sclera Non Icteric Neck: Supple, Good ROM, No Lymph Node Enlargement Lungs: Clear to auscultation Cardiovascular: Regular Rhythm, Normal S1, Normal S2, No Murmurs, No Rubs, No Gallops Vascular: No Carotid Bruits, Normal Femoral Pulses, Normal Radial Pulses, Normal Dorsalis Pedal Pulse, Normal Posterior Tibial Pulses Abdomen: Bowel Sounds Present, Soft, Non Tender, No HSM, No Organomegaly Extremities: No Cyanosis, No Clubbing, No edema Neurological: No Focal Motor or Sensory Deficit 05/23/18 06:00: WBC 10.4, RBC 3.22 L, Hgb 9.7 L, Hct 31.9 L, MCV 99.1 H, MCH 30.1, MCHC 30.4 L, RDW 17.0 H, RDW Differential 59.8 H, Plt Count 192, MPV 10.6 , Immature Gran % (Auto) 0.200, Neut % (Auto) 85.1 H, Lymph % (Auto) 6.5 L, [place] % (Auto) 6.6, Eos % (Auto) 1.5, Baso % (Auto) 0.1, Absolute Neuts (auto) 8.8 H, Total Counted Not Reportable 05/23/18 06:00: Sodium 141, Potassium 3.7, Chloride 105, Carbon Dioxide 26.0, Anion Gap 10, BUN 71 H, Creatinine 2.41 H, Est GFR (MDRD) Af Amer 35 L, Est GFR (MDRD) Non-Af 29 L, BUN/Creatinine Ratio 29.5 H, Glucose 138 H, Calcium 8.4 L Rhythm: EKG: ECHO: Stress Test: Cardiac Cath: PCI: CT Surgery: Holter monitor: EPS: PPM: CXR: Chest CT Scan: Medical Necessity - Tobacco Use Smoking Status: Current some day smoker Tobacco Use: Cigarettes Assessment/Plan 1. Congestive heart failure: The patient presents with diastolic congestive heart failure possibly superimposed on known coronary disease as well as COPD. Patient was recently discharged after a negative dobutamine echocardiogram, however he returned with worsening shortness of breath, orthopnea, PND and abdominal bloating. He has responded well to IV diuretic therapy. He reports he was eating cheeseburgers at home after he was discharged recently. Patient underwent right-sided thoracentesis removing about 1700 cc of fluid yesterday and his breathing has improved but still cannot lay down flat to endure a left and right heart catheterization. He is to undergo hemodialysis later on today for purification purposes as well as any additional fluid removal if indicated. I recommended that we decrease his Coreg to 12.5 mg p.o. twice daily given his congestive heart failure symptoms. My suspicion is is that his fluid problems are more of a result of his chronic renal insufficiency and possibly obstructive uropathy at his prostate level, then his LV dysfunction would indicate. We will know more once we repeat his catheterization. Hopefully after dialysis we can reassess him this evening and if he is able to lay down flat we can proceed with catheterization tomorrow, Tuesday. In the meantime we will continue Coreg, Imdur, and amlodipine. Continue aspirin and Plavix in anticipation of any possible angioplasty tomorrow. 2. Chronic renal insufficiency: Many thanks to renal for assisting with the patient's care and for facilitating catheter placement and hemodialysis today. Code Visit Inpatient E&M: 72106 Subs Hosp L2
--- NOTE | 2018-05-23 11:53 | CPS ---
pressure decreased from 18 to 16 per pt request for comfort
[2018-05-23] MEDS: ALPRAZolam 0.5 MG Tablet PO ×2 (12:08→23:48)
--- NOTE | 2018-05-23 13:11 | PCM.PROGNOTE ---
Patient Problems: Active and Suspected Problems Acute renal failure superimposed on chronic kidney disease (Acute) Subjective: Patient did well overnight. Patient did have a dialysis catheter placed without obvious complication. Patient feels subjectively unchanged compared to previous. Patient did not receive hemodialysis overnight. Patient does report a periodic nonproductive cough. Objective: Chest x-ray from last evening was notable for a central catheter placement without pneumothorax. Patient did have what appear to be increasing lower lobe infiltrates versus pleural effusions. - Physical Exam General: Alert, Oriented x3, Cooperative, No apparent distress, - - On BiPAP therapy during my evaluation. Good synchrony noted. HEENT: Atraumatic, PERRLA, EOMI, Normocephalic, - - Slight scleral injection without icterus Oral: No Gingival or Mucosal Lesions/ Ulcerations, Dry Mucosa Neck: Supple, No JVD, No Nodes, Trachea Midline Lungs: No rhonchi, No rales, Diminished, Wheezes, - - Symmetric expansion. Cardiovascular: Regular rate, Regular Rhythm, Normal S1, Normal S2, No murmurs, No rub noted, No Gallop Abdomen: Bowel Sounds Present, Soft, Non Tender, Non-Distended Extremities: No cyanosis, Capillary Refill Less than 3 Seconds, Clubbing, Edema Skin: - - No significant change compared to previous Musculoskeletal: No Tenderness to Palpation of Joints or Extremities Lymphatic: No Cervical, Supraclavicular, or Inguinal Adenopathy Neurological: Cranial nerves II-XII grossly intact, Neuro grossly intact, Motor Exam 5/5 strength throughout Psych/Mental Status: Normal Affect, Appropriate Vital Signs Temp Pulse Resp BP Pulse Ox 36.6 C 64 30 H 143/84 H 95 05/23/18 09:15 05/23/18 13:01 05/23/18 13:01 05/23/18 13:01 05/23/18 11:30 Oxygen Flow Rate (L/min) 4 Oxygen Delivery Method Bi-pap Weight: 88.2 kg Body Mass Index (BMI) 30.7 Intake and Output for Last 24 Hours 05/21/18 05/22/18 05/23/18 23:59 23:59 23:59 Intake Total 650 / 650 650 / 650 580 / 580 Output Total 275 / 275 500 / 500 375 / 375 Balance 375 / 375 150 / 150 205 / 205 Laboratory Tests Past 24 Hrs 05/23/18 05/23/18 06:00 06:00 WBC 10.4 RBC 3.22 L Hgb 9.7 L Hct 31.9 L MCV 99.1 H MCH 30.1 MCHC 30.4 L RDW 17.0 H RDW Differential 59.8 H Plt Count 192 MPV 10.6 Immature Gran % (Auto) 0.200 Neut % (Auto) 85.1 H Lymph % (Auto) 6.5 L [place] % (Auto) 6.6 Eos % (Auto) 1.5 Baso % (Auto) 0.1 Absolute Neuts (auto) 8.8 H Absolute Lymphs (auto) 0.68 L Total Counted Not Reportable Sodium 141 Potassium 3.7 Chloride 105 Carbon Dioxide 26.0 Anion Gap 10 BUN 71 H Creatinine 2.41 H Estim Creat Clear Calc 29.17 Est GFR (MDRD) Af Amer 35 L Est GFR (MDRD) Non-Af 29 L BUN/Creatinine Ratio 29.5 H Glucose 138 H Calcium 8.4 L Clinical Impression(s) from Imaging Studies Thoracentesis Ultrasound 05/22/18 11:00 IMPRESSION: Successful ultrasound-guided right thoracentesis. Electronically Signed: Demian Warren at 13:43 EDT Tel , Service support , Chest X-Ray 05/22/18 11:44 IMPRESSION: No pneumothorax identified status post right thoracentesis. Decreased right pleural effusion. Moderate CHF/fluid overload. Electronically Signed: Demian Warren at 13:34 EDT Tel , Service support , Chest X-Ray 05/22/18 11:59 IMPRESSION: No pneumothorax identified status post right thoracentesis. Decreased right pleural effusion. Moderate CHF/fluid overload. Electronically Signed: Demian Warren at 13:35 EDT Tel , Service support , Chest X-Ray 05/22/18 18:18 IMPRESSION: Central catheter placement. No pneumothorax. Increasing lower lung infiltrates or edema and pleural effusions. Electronically Signed: Kamari Tucker MD at 19:20 EDT , Service support , Medical Necessity - Tobacco Use Smoking Status: Current some day smoker Tobacco Use: Cigarettes Assessment/Plan All Active Problems Acute renal failure superimposed on chronic kidney disease (Acute) Acute respiratory failure with hypoxia (Acute) Diastolic CHF (Acute) RECOMMENDATIONS: 1. Fluid management using hemodialysis 2. Wean oxygen as tolerated 3. Continue BiPAP therapy as needed. 4. Continue scheduled bronchodilators. Discontinue Mucomyst from my perspective. IMPRESSIONS: 1. Acute hypoxemic respiratory failure secondary to decompensated heart failure with evidence of bilateral pleural effusions Patient has tolerated thoracentesis and has clinical improvement. Unfortunately, chest x-ray shows recurrence of pleural effusions. Patient is to have a run of hemodialysis this afternoon. Will attempt to obtain appropriate fluid balance using hemodialysis. Patient should continue to use BiPAP with any sleeping. Wean nasal cannula as tolerated during the day. 2. Presumptive COPD of unknown severity Continue scheduled bronchodilators as ordered. Outpatient pulmonary function tests have been requested in the past, but patient continues to have repeated hospitalization interfering with testing. 3. Acute kidney injury Nephrology is following. Clinical concern for the development of ATN following contrast administration in combination with prerenal azotemia that developed as a consequence of diuresis. Patient to have hemodialysis today. Spoke with bedside nurse 4. History of tobacco dependence/coronary artery disease/hypertension/hyperlipidemia/depression Complicates care, management, recovery and prognosis. Continue home medications as indicated. This note was generated with [employer] dictation software. It may contain incorrect words, spelling, and punctuation that were not noted in checking the note before signing. Code Visit Inpatient E&M: 84219 Subs Hosp L2
--- NOTE | 2018-05-23 13:28 | PN_ITS ---
Patient Problems: Active and Suspected Problems Acute renal failure superimposed on chronic kidney disease (Acute) Subjective: Patient did well overnight. Patient did have a dialysis catheter placed without obvious complication. Patient feels subjectively unchanged compared to previous. Patient did not receive hemodialysis overnight. Patient does report a periodic nonproductive cough. Objective: Chest x-ray from last evening was notable for a central catheter placement without pneumothorax. Patient did have what appear to be increasing lower lobe infiltrates versus pleural effusions. - Physical Exam General: Alert, Oriented x3, Cooperative, No apparent distress, - - On BiPAP therapy during my evaluation. Good synchrony noted. HEENT: Atraumatic, PERRLA, EOMI, Normocephalic, - - Slight scleral injection without icterus Oral: No Gingival or Mucosal Lesions/ Ulcerations, Dry Mucosa Neck: Supple, No JVD, No Nodes, Trachea Midline Lungs: No rhonchi, No rales, Diminished, Wheezes, - - Symmetric expansion. Cardiovascular: Regular rate, Regular Rhythm, Normal S1, Normal S2, No murmurs, No rub noted, No Gallop Abdomen: Bowel Sounds Present, Soft, Non Tender, Non-Distended Extremities: No cyanosis, Capillary Refill Less than 3 Seconds, Clubbing, Edema Skin: - - No significant change compared to previous Musculoskeletal: No Tenderness to Palpation of Joints or Extremities Lymphatic: No Cervical, Supraclavicular, or Inguinal Adenopathy Neurological: Cranial nerves II-XII grossly intact, Neuro grossly intact, Motor Exam 5/5 strength throughout Psych/Mental Status: Normal Affect, Appropriate Vital Signs Temp Pulse Resp BP Pulse Ox 36.6 C 64 30 H 143/84 H 95 05/23/18 09:15 05/23/18 13:01 05/23/18 13:01 05/23/18 13:01 05/23/18 11:30 Oxygen Flow Rate (L/min) 4 Oxygen Delivery Method Bi-pap Weight: 88.2 kg Body Mass Index (BMI) 30.7 Intake and Output for Last 24 Hours 05/21/18 05/22/18 05/23/18 23:59 23:59 23:59 Intake Total 650 / 650 650 / 650 580 / 580 Output Total 275 / 275 500 / 500 375 / 375 Balance 375 / 375 150 / 150 205 / 205 Laboratory Tests Past 24 Hrs 05/23/18 05/23/18 06:00 06:00 WBC 10.4 RBC 3.22 L Hgb 9.7 L Hct 31.9 L MCV 99.1 H MCH 30.1 MCHC 30.4 L RDW 17.0 H RDW Differential 59.8 H Plt Count 192 MPV 10.6 Immature Gran % (Auto) 0.200 Neut % (Auto) 85.1 H Lymph % (Auto) 6.5 L [place] % (Auto) 6.6 Eos % (Auto) 1.5 Baso % (Auto) 0.1 Absolute Neuts (auto) 8.8 H Absolute Lymphs (auto) 0.68 L Total Counted Not Reportable Sodium 141 Potassium 3.7 Chloride 105 Carbon Dioxide 26.0 Anion Gap 10 BUN 71 H Creatinine 2.41 H Estim Creat Clear Calc 29.17 Est GFR (MDRD) Af Amer 35 L Est GFR (MDRD) Non-Af 29 L BUN/Creatinine Ratio 29.5 H Glucose 138 H Calcium 8.4 L Clinical Impression(s) from Imaging Studies Thoracentesis Ultrasound 05/22/18 11:00 IMPRESSION: Successful ultrasound-guided right thoracentesis. Electronically Signed: Demian Warren at 13:43 EDT Tel , Service support , Chest X-Ray 05/22/18 11:44 IMPRESSION: No pneumothorax identified status post right thoracentesis. Decreased right pleural effusion. Moderate CHF/fluid overload. Electronically Signed: Demian Warren at 13:34 EDT Tel , Service support , Chest X-Ray 05/22/18 11:59 IMPRESSION: No pneumothorax identified status post right thoracentesis. Decreased right pleural effusion. Moderate CHF/fluid overload. Electronically Signed: Demian Warren at 13:35 EDT Tel , Service support , Chest X-Ray 05/22/18 18:18 IMPRESSION: Central catheter placement. No pneumothorax. Increasing lower lung infiltrates or edema and pleural effusions. Electronically Signed: Kamari Tucker MD at 19:20 EDT , Service support , Medical Necessity - Tobacco Use Smoking Status: Current some day smoker Tobacco Use: Cigarettes Assessment/Plan All Active Problems Acute renal failure superimposed on chronic kidney disease (Acute) Acute respiratory failure with hypoxia (Acute) Diastolic CHF (Acute) RECOMMENDATIONS: 1. Fluid management using hemodialysis 2. Wean oxygen as tolerated 3. Continue BiPAP therapy as needed. 4. Continue scheduled bronchodilators. Discontinue Mucomyst from my perspective. IMPRESSIONS: 1. Acute hypoxemic respiratory failure secondary to decompensated heart failure with evidence of bilateral pleural effusions Patient has tolerated thoracentesis and has clinical improvement. Unfortunately, chest x-ray shows recurrence of pleural effusions. Patient is to have a run of hemodialysis this afternoon. Will attempt to obtain appropriate fluid balance using hemodialysis. Patient should continue to use BiPAP with any sleeping. Wean nasal cannula as tolerated during the day. 2. Presumptive COPD of unknown severity Continue scheduled bronchodilators as ordered. Outpatient pulmonary function tests have been requested in the past, but patient continues to have repeated hospitalization interfering with testing. 3. Acute kidney injury Nephrology is following. Clinical concern for the development of ATN following contrast administration in combination with prerenal azotemia that developed as a consequence of diuresis. Patient to have hemodialysis today. Spoke with bedside nurse 4. History of tobacco dependence/coronary artery disease/hypertension/ hyperlipidemia/depression Complicates care, management, recovery and prognosis. Continue home medications as indicated. This note was generated with [employer] dictation software. It may contain incorrect words, spelling, and punctuation that were not noted in checking the note before signing. Code Visit Inpatient E&M: 68793 Subs Hosp L2
--- NOTE | 2018-05-23 13:35 | PCM.PN.BLA ---
Progress Note seen on dialysis today looks restless, just received xanax Bp is ok Bipap in place will try for 3-4 L removal today and assess plans for cath once stable
--- NOTE | 2018-05-23 13:58 | CPS ---
Bipap pressures adjusted for pt comfort. Dr Workman and Dr Caicedo aware of changes
--- NOTE | 2018-05-23 15:34 | DIALYSIS ---
Hemodialysis x 2.5 hours completed. Pt tolerated tx well. Fluid balance -4000ml. Pt had c/o cramping in stomach with 3 mins left of tx. Heparin 1000units/ml to close CVC ports to fill volume. Next HD tx 05/24/18. Report given to RAYMOND Miguel. Pt stable
[2018-05-23] MEDS: Ferrous Sulfate 325 MG Tablet PO (17:39)
--- NOTE | 2018-05-23 19:43 | PN_ITS ---
Patient Problems: Active and Suspected Problems Acute renal failure superimposed on chronic kidney disease (Acute) Subjective: Patient was seen and examined today, he complains of being short of breath and is currently on BiPAP but nursing states that he has to be placed on BiPAP when his pulse ox is normal. Patient had a tunneled dialysis catheter placed today, he is currently undergoing dialysis at the time of my examination, is in the room. - Physical Exam General: Alert, Oriented x3, Cooperative, No apparent distress, Well developed, Well nourished HEENT: Atraumatic, PERRLA, EOMI, Normocephalic Oral: Moist Mucosa Neck: Supple, No JVD, No Nuchal Rigidity, Trachea Midline, Thyroid Normal Size and Texture Lungs: Clear to auscultation, No rhonchi, No wheeze, No rales, Diminished Cardiovascular: Regular rate, Regular Rhythm, Normal S1, Normal S2, No murmurs, No Ectopic Activity, PMI Normal, No rub noted, No Gallop Abdomen: Bowel Sounds Present, Soft, Non Tender, Non-Distended, No hernias noted Extremities: No edema, Capillary Refill Less than 3 Seconds Skin: No rashes, No breakdown Musculoskeletal: No Tenderness to Palpation of Joints or Extremities Neurological: Cranial nerves II-XII grossly intact, Neuro grossly intact, Sensory exam intact to light touch and pain, Coordination normal Psych/Mental Status: Normal Affect, Appropriate, Alert and oriented to time, place, person, mood and affect Vital Signs Temp Pulse Resp BP Pulse Ox 96.4 F L 63 20 H 124/66 H 96 05/23/18 15:00 05/23/18 16:05 05/23/18 16:05 05/23/18 15:00 05/23/18 16:05 Oxygen Flow Rate (L/min) 4 Oxygen Delivery Method Bi-pap Weight: 88.2 kg Body Mass Index (BMI) 30.7 Intake and Output for Last 24 Hours 05/21/18 05/22/18 05/23/18 23:59 23:59 23:59 Intake Total 650 / 650 650 / 650 630 / 630 Output Total 275 / 275 500 / 500 425 / 425 Balance 375 / 375 150 / 150 205 / 205 Laboratory Tests Past 24 Hrs 05/23/18 05/23/18 05/23/18 06:00 06:00 Unknown WBC 10.4 RBC 3.22 L Hgb 9.7 L Hct 31.9 L MCV 99.1 H MCH 30.1 MCHC 30.4 L RDW 17.0 H RDW Differential 59.8 H Plt Count 192 MPV 10.6 Immature Gran % (Auto) 0.200 Neut % (Auto) 85.1 H Lymph % (Auto) 6.5 L [place] % (Auto) 6.6 Eos % (Auto) 1.5 Baso % (Auto) 0.1 Absolute Neuts (auto) 8.8 H Absolute Lymphs (auto) 0.68 L Total Counted Not Reportable Sodium 141 Potassium 3.7 Chloride 105 Carbon Dioxide 26.0 Anion Gap 10 BUN 71 H Creatinine 2.41 H Estim Creat Clear Calc 29.17 Est GFR (MDRD) Af Amer 35 L Est GFR (MDRD) Non-Af 29 L BUN/Creatinine Ratio 29.5 H Glucose 138 H Calcium 8.4 L Hep Bs Antigen Pending Hep Bs Antibody Pending Medical Necessity - Tobacco Use Smoking Status: Current some day smoker Tobacco Use: Cigarettes Assessment/Plan All Active Problems Acute renal failure superimposed on chronic kidney disease (Acute) Acute respiratory failure with hypoxia (Acute) Diastolic CHF (Acute) #1 acute on chronic diastolic congestive heart failure-continue dialysis, cardiology participating in his care #2 pulmonary hypertension-mild #3 acute hypoxic respiratory failure #4 acute kidney injury on a backdrop of chronic kidney disease stage III- nephrology is participating in his care, today he is currently getting dialysis #5 coronary artery disease #6 anxiety #7 probable COPD #8 hypertension #9 generalized debility-PT and OT will continue to see the patient Code Visit Inpatient E&M: 76464 Subs Hosp L2
[2018-05-23] MEDS: Atorvastatin Calcium 80 MG Tablet PO (21:12)
[2018-05-23] MEDS: Pramipexole Di-HCl 0.5 MG Tablet PO (21:12)
[2018-05-23] MEDS: Tamsulosin HCl 0.4 MG Capsule PO (21:12)
[2018-05-23] MEDS: Carvedilol 12.5 MG Tablet PO (21:17)
[2018-05-24] VITALS (29 sets, daily range): BP systolic 107–151; BP diastolic 51–66; PULSE 57–83; RESP 12–20; TEMP 36.3–36.8; O2SAT 87–97
[2018-05-24 05:49] LABS: Partial Thromboplast Time 29.9 Seconds (24.1-36.2)
--- NOTE | 2018-05-24 05:55 | RAD_ITS ---
STUDY: X-RAY CHEST REASON FOR EXAM: Male, 67 years old. Shortness of breath TECHNIQUE: 1 view COMPARISON: May 22, 2018 FINDINGS: The large area of consolidation in the right lower lobe noted in the previous examination has resolved. There is no cardiomegaly with mild failure. Small left-sided pleural effusion. Median sternotomy wires. A dialysis catheter in the right internal jugular vein has its tip in the superior vena cava.. Normal visualized thoracic spine. Normal visualized ribs, clavicles, and shoulders. There is no demonstrated abnormality of the visualized soft tissue structures of the upper abdomen. RAD/Chest 1 View (Portable) IMPRESSION: Cardiomegaly with mild failure. Resolved right lower lobe consolidation. A small left-sided effusion. Electronically Signed: Garland Cano, at 6:09 EDT Tel , Service support ,
[2018-05-24] MEDS: ALPRAZolam 0.5 MG Tablet PO ×3 (06:21→17:05)
[2018-05-24] MEDS: hydrALAZINE 50 MG Tablet 100 MG PO ×3 (06:21→23:29)
[2018-05-24] MEDS: Aspirin E.C. 81 MG Tablet PO (06:22)
[2018-05-24] MEDS: Carvedilol 12.5 MG Tablet PO ×2 (06:22→23:29)
[2018-05-24] MEDS: Isosorbide Mononitrate 60 MG Tablet PO (06:23)
[2018-05-24] MEDS: amLODIPine 10 MG Tablet PO (06:23)
[2018-05-24 06:28] LABS: Absolute Lymphocyte Count 1.03 X10^3/ul (0.83-4.51); Absolute Neutrophil Count 7.7 X10^3/uL (2.0-7.7); Anion Gap 10 (5-15); BUN 56 mg/dL (7-18); BUN/Creat Ratio 22.8 RATIO (10-20); Basophil# 0.02 X10^3/uL; Basophil% 0.2 % (0-1); Calcium,Total 7.7 mg/dL (8.5-10.1); Chloride 105 mmol/L (98-107); Creatinine, Serum 2.46 mg/dL (0.70-1.30); EST Glomerular Filtration Rate 28 mL/min (>60); Est Glom Filt Rate - Afr Amer 34 mL/min (>60); Estimated Creatinine Clearance 28.58 ml/min; Glucose 106 mg/dL (74-106); Hematocrit 31.3 % (40-54); Hemoglobin 9.3 g/dl (13.0-16.5); Lymphocyte # 1.03 X10^3/ul (4.0); Lymphocyte % 10.2 % (19-41); Mean Corp Hgb Conc 29.7 g/gl (32-36); Mean Corpuscular Hgb 29.7 pg (27.0-32.0); Mean Platelet Vol. 10.3 fl (6.2-12.0); Monocyte% 10.9 % (0-10); Neutrophil # 7.73 X10^3/uL (2.7-7.7); Neutrophil % 76.3 % (47-70); Platelet Count 113 K/mm3 (150-450); Potassium 3.9 mmol/L (3.5-5.1); RBC Distribution Width SD 60.1 fl (35.1-43.9); Red Blood Count 3.13 M/mm3 (4.6-6.2); Sodium Level 140 mmol/L (136-145); White Blood Count 10.1 K/mm3 (4.4-11.0)
[2018-05-24 06:29] LABS: International Normalized Ratio 1.1
[2018-05-24] MEDS: 0.9% Normal Saline 1,000 ML 15 ML IV (06:33)
[2018-05-24 06:40] LABS: POSITIVE COUNT NO; POSITIVE DIFFERENTIAL NO; POSITIVE MORPHOLOGY NO
[2018-05-24] MEDS: Ipratropium/Albuterol Sulfate 3 ML AMPUL.NEB INHALATION ×3 (07:20→19:56)
--- NOTE | 2018-05-24 07:37 | PCM.PN.SRG ---
Patient Problems: Active and Suspected Problems Acute renal failure superimposed on chronic kidney disease (Acute) Subjective: Patient evaluated resting comfortably in bed. He denies pain/discomfort at chest catheter site. He continues to have difficulties with breathing. Dialysis went well yesterday. - Physical Exam General: Alert, Oriented x3, Cooperative Neck: - - Dialysis catheter intact. No active drainage noted Vital Signs Temp Pulse Resp BP Pulse Ox 98.2 F 61 16 138/66 H 97 05/24/18 05:50 05/24/18 06:58 05/24/18 05:50 05/24/18 05:50 05/24/18 05:50 Oxygen Flow Rate (L/min) 4 Oxygen Delivery Method Bi-pap Weight: 188 lb 4.396 oz Body Mass Index (BMI) 30.7 Intake and Output for Last 24 Hours 05/22/18 05/23/18 05/24/18 23:59 23:59 23:59 Intake Total 650 / 650 1030 / 1030 Output Total 500 / 500 475 / 475 150 / 150 Balance 150 / 150 555 / 555 -150 / -150 Laboratory Tests Past 24 Hrs 05/23/18 05/24/18 05/24/18 Unknown 05:25 05:25 WBC 10.1 RBC 3.13 L Hgb 9.3 L Hct 31.3 L MCV 100.0 H MCH 29.7 MCHC 29.7 L RDW 17.0 H RDW Differential 60.1 H Plt Count 113 L MPV 10.3 Immature Gran % (Auto) 0.400 Neut % (Auto) 76.3 H Lymph % (Auto) 10.2 L [place] % (Auto) 10.9 H Eos % (Auto) 2.0 Baso % (Auto) 0.2 Absolute Neuts (auto) 7.7 Absolute Lymphs (auto) 1.03 Total Counted Not Reportable PT INR APTT Sodium 140 Potassium 3.9 Chloride 105 Carbon Dioxide 25.0 Anion Gap 10 BUN 56 H Creatinine 2.46 H Estim Creat Clear Calc 28.58 Est GFR (MDRD) Af Amer 34 L Est GFR (MDRD) Non-Af 28 L BUN/Creatinine Ratio 22.8 H Glucose 106 Calcium 7.7 L Hep Bs Antigen Pending Hep Bs Antibody Pending 05/24/18 05:25 WBC RBC Hgb Hct MCV MCH MCHC RDW RDW Differential Plt Count MPV Immature Gran % (Auto) Neut % (Auto) Lymph % (Auto) [place] % (Auto) Eos % (Auto) Baso % (Auto) Absolute Neuts (auto) Absolute Lymphs (auto) Total Counted PT 14.0 INR 1.1 APTT 29.9 Sodium Potassium Chloride Carbon Dioxide Anion Gap BUN Creatinine Estim Creat Clear Calc Est GFR (MDRD) Af Amer Est GFR (MDRD) Non-Af BUN/Creatinine Ratio Glucose Calcium Hep Bs Antigen Hep Bs Antibody Medical Necessity - Tobacco Use Smoking Status: Current some day smoker Tobacco Use: Cigarettes Assessment/Plan All Active Problems Acute renal failure superimposed on chronic kidney disease (Acute) Acute respiratory failure with hypoxia (Acute) Diastolic CHF (Acute) I am following this patient in conjunction with Dr. Lua S/p right chest tunneled dialysis catheter placement If continued ongoing chronic dialysis as outpatient, he will need bilateral upper extremity vein mapping and consultation with Dr. Lua as an outpatient. We will sign off at this time Please reconsult if needed. Thank you again for allowing us to participate in this patient's care. Code Visit Inpatient E&M: 66319 Subs Hosp L1 - POST-OP CHARGE
--- NOTE | 2018-05-24 09:15 | CASEMGMT ---
According to [facility] website, the following are in-network tertiary facilities: [facility], [place], [facility], [place], [facility], [place], [facility], and . Chris ANDRADE CM
[2018-05-24 09:26] LABS: Blood Gas Specimen Type VEN; VBG BASE EXCESS 1 mmol/L (-1.0-3.5); VBG Bicarbonate 26 mmol/L (22-26); VBG Oxygen Content 27 mmol/L (23-33); VBG PO2 30 mmHg (25-40); VBG SO2 59 % (50-70); VBG pCO2 39.6 mmHg (41-51); VBG pH 7.42 (7.32-7.42)
[2018-05-24 09:26] LABS: Base Excess -4 mmol/L (-2 to +2); Bicarbonate 22.6 mmol/L (22-26); Blood Gas Specimen Type ART; PO2 59 mmHG (75-100); SO2 87 % (95-99); Total Carbon Dioxide 24 mmol/L; pCO2 47.2 mmHg (35-45); pH 7.29 (7.35-7.45)
[2018-05-24 09:26] LABS: Blood Gas Specimen Type VEN; VBG BASE EXCESS 2 mmol/L (-1.0-3.5); VBG Bicarbonate 26 mmol/L (22-26); VBG Oxygen Content 27 mmol/L (23-33); VBG PO2 29 mmHg (25-40); VBG SO2 58 % (50-70); VBG pCO2 39.9 mmHg (41-51); VBG pH 7.42 (7.32-7.42)
--- NOTE | 2018-05-24 09:32 | CL.D_ITS ---
Patient Name: YENNI FORREST Study Date: 05/24/2018 Performing: Chepe Barrientos MD Ht: 68.11 inches 173 cm : 1950 Wt: 202.83 lbs 92 kg Age: 67 Gender: male BSA: 2.06 PROCEDURE(S) PERFORMED [id number]/LHC/COR/LV/CABG [id number] RENAL ANGIO WITH HEART CATH CLINICAL PROFILE AND INDICATIONS Indications: ACS > 24 hrs, Stable Known CAD, right sided heart heart failure with pleural effusio n, Pre-Operative Evaluation, New Onset Angina <= 2 months, Stable Known CAD, Suspected CAD, New onset right sided CHF/pleural effusion despite normal stress echo. Heart Failure: NYHA Class: 4, Newly Diagnosed: No, Heart Failure Type: Diastolic Stress/Imaging Stress Echocardiogram: Yes Result: NegativeStress Echocardiogram: Negative Angina Classification Anginal Classification w/in 2 Weeks: CCS III CAD Presentations: Other: acute on chronic right sided CHF. Comorbidities/Risk Factors: Hypertension Dyslipidemia Prior CABG Prior PCI Chronic Lung Disease Prior PCI CONCLUSIONS Triple vessel CAD of the LM, LCX, PDA Normal LV size, wall motion,and systolic function The patient has pulmonary hypertension which is moderate. Right heart pressures - moderately elevated RECOMMENDATIONS ASA and plavix Indefinitely for CAD/grafts and PVD Management as per referring Cigarette Filter Inspector pt will most likely benefit from ongoing hemodialysis. DESCRIPTION OF PROCEDURE The patient arrived to the procedure lab. The risks and benefits of the procedure as well as a full d escription of our services here and current unavailability of surgical backup were fully explained to the patient and/or their significant other prior to the catheterization. The Timeout was completed, verifying the correct patient and procedure. The patient's procedural site was prepped and draped in the usual fashion. Local anesthetic was given subcutaneously to right groin region with Lidocaine 2%. Using a modified Seldinger technique, arterial access was obtained via the right femoral artery, a 4 Fr sheath was inserted Venous access was obtained via the left femoral vein, a 7Fr sheath was inserte d. A 7Fr thermal dilution catheter was inserted and right heart pressures were recorded, it was then advanced to PA position for cardiac outputs. Thermal dilution cardiac outputs were then recorded. O2 saturations were then obtained. The Thermal dilution catheter was then removed. Left Ventriculography was performed in CORTES projection using a 4 Fr. Pigtail catheter. The Thermal dilution catheter was th en removed. Left Coronary Artery selective angiography was performed in multiple views using a 4 Fr. JL5 catheter. Right Coronary Artery selective angiography was then performed in multiple views using a 4 Fr. 3DRC catheter. Saphenous Vein graft to the RPDA selective angiography was performed in multip le views using a 4 Fr. 3DRC catheter. Saphenous Vein graft to the OM 1 selective angiography was perf ormed in multiple views using a 4 Fr. 3DRC catheter. Left internal mammary artery graft to the LAD se lective angiography was performed in multiple views using a 4 Fr. 3DRC catheter.The arterial sheath w as pulled and manual compression applied until hemostasis is achieved.. The venous sheath was then pu lled and manual compression applied until hemostasis achieved CORONARY ANGIOGRAPHY DOMINANCE: Right Dominant LEFT HEART ASSESSMENT Left Ventricular Ejection Fraction: by LV Gram 55 % Normal LV wall motion Normal Left Ventricular systolic function Elevated Left Ventricular End Diastolic Pressure RIGHT HEART ASSESSMENT Thermal CO: 7.76 Thermal CI: 3.77 [place] CO: 7.47 [place] CI: 3.63 PW: PA: 50/20 32 RV: 50/0 7 RA: 06/26 7 PVR: 113 SVR: 691 LEFT MAIN: 85 % Stenosis, Severe calcification LEFT ANTERIOR DECENDING ARTERY: MID LAD: Mild luminal irregularities less than 30% CIRCUMFLEX ARTERY: PROX CIRC: 90 % Stenosis RIGHT CORONARY ARTERY: Instent restenosis 20 % RT PDA: Ostial - is occluded GRAFTS: NICHOLAS graft to the LAD is patent Saphenous Vein graft to the 1st OM is patent Saphenous Vein graft to the RCA is patent PERIPHERAL FINDINGS: Abdominal Aorta: Atherosclerotic 30 % Stenosis Abdominal Aorta: Calcified 30 % stenosis Right Renal Artery 30 % Stenosis Left Renal Artery appears to be occluded with retrograde collaterals. COMPLICATIONS No Complications PROCEDURE MEDICATIONS Fentanyl 25 mcg IV Fentanyl 25 mcg IV Fentanyl 25 mcg IV Oxygen: 4 L/min via nasal cannula SUMMARY OF HEMODYNAMIC DATA Time AIR REST ECG 08:27:04 RA 06/26 (7) SV 08:46:55 RV 50/0, 7 08:47:17 PA 50/20 (32) PA 08:47:59 PW (21) PV 08:49:55 LV 127/0, 11 08:53:45 LV 131/-1, 19 08:53:52 LV 124/1, 23 08:55:33 PW 25/43 (23) 08:55:33 LV 127/0, 24 08:56:00 RV 53/-1, 10 08:56:00 LV 129/4, 28 08:56:19 RV 59/2, 11 08:56:19 LV 134/0, 25 08:57:48 LVp 131/3, 25 08:57:53 AOp 126/35 (66) 08:57:58 AO 109/52 (74) SA 08:59:41 Type SV CO (l/m) CI (l/m/ HR Time AIR REST Thermal 136.10 7.76 3.77 57 08:27:04 [place] 131.10 7.47 3.63 57 08:27:04 Label % O2 Pres/Loc Time AIR REST AO 87 PV 09:02:49 PA 58 PA 09:02:55 Signed By Chepe Barrientos MD On 05/24/2018 09:32:11 Chepe Barrientos MD
[2018-05-24 11:45] LABS: HEPATITIS B SURFACE AG Negative (Negative); Hep B Surface Antibodies Non Reactive (.)
--- NOTE | 2018-05-24 12:46 | PCM.PN.REN ---
Patient Problems: Active and Suspected Problems Acute renal failure superimposed on chronic kidney disease (Acute) Subjective: no new complaints - Physical Exam General: Alert, Oriented x3, Cooperative HEENT: Atraumatic, PERRLA, EOMI, Normocephalic Neck: Supple, No JVD, Negative Carotid Bruits Lungs: Clear to auscultation, Normal air movement Cardiovascular: Regular rate, No murmurs Abdomen: Bowel Sounds Present, Soft, Non Tender Extremities: No edema, Capillary Refill Less than 3 Seconds Skin: No rashes, No breakdown Musculoskeletal: No Tenderness to Palpation of Joints or Extremities Neurological: Cranial nerves II-XII grossly intact Psych/Mental Status: Normal Affect, Appropriate Vital Signs Temp Pulse Resp BP Pulse Ox 97.4 F L 65 18 130/61 H 92 05/24/18 09:45 05/24/18 11:01 05/24/18 11:00 05/24/18 11:00 05/24/18 11:00 Oxygen Flow Rate (L/min) 4 Oxygen Delivery Method Nasal Cannula Weight: 85.4 kg Body Mass Index (BMI) 30.7 Intake and Output for Last 24 Hours 05/22/18 05/23/18 05/24/18 23:59 23:59 23:59 Intake Total 650 / 650 1030 / 1030 Output Total 500 / 500 475 / 475 150 / 150 Balance 150 / 150 555 / 555 -150 / -150 Laboratory Tests Past 24 Hrs 05/23/18 05/24/18 05/24/18 Unknown 05:25 05:25 WBC 10.1 RBC 3.13 L Hgb 9.3 L Hct 31.3 L MCV 100.0 H MCH 29.7 MCHC 29.7 L RDW 17.0 H RDW Differential 60.1 H Plt Count 113 L MPV 10.3 Immature Gran % (Auto) 0.400 Neut % (Auto) 76.3 H Lymph % (Auto) 10.2 L [place] % (Auto) 10.9 H Eos % (Auto) 2.0 Baso % (Auto) 0.2 Absolute Neuts (auto) 7.7 Absolute Lymphs (auto) 1.03 Total Counted Not Reportable PT INR APTT Specimen Type pH Bicarbonate Actual POC Total CO2 Base Excess O2 Saturation ABG pCO2 ABG pO2 VBG pH VBG pO2 VBG O2 Sat (Calc) VBG O2 Content VBG Base Excess POC Mix VBG pCO2 Pt Tmp Sodium 140 Potassium 3.9 Chloride 105 Carbon Dioxide 25.0 Anion Gap 10 BUN 56 H Creatinine 2.46 H Estim Creat Clear Calc 28.58 Est GFR (MDRD) Af Amer 34 L Est GFR (MDRD) Non-Af 28 L BUN/Creatinine Ratio 22.8 H Glucose 106 Calcium 7.7 L Hep Bs Antigen Negative Hep Bs Antibody Non Reactive 05/24/18 05/24/18 05/24/18 05:25 08:51 08:54 WBC RBC Hgb Hct MCV MCH MCHC RDW RDW Differential Plt Count MPV Immature Gran % (Auto) Neut % (Auto) Lymph % (Auto) [place] % (Auto) Eos % (Auto) Baso % (Auto) Absolute Neuts (auto) Absolute Lymphs (auto) Total Counted PT 14.0 INR 1.1 APTT 29.9 Specimen Type FER FER pH Bicarbonate Actual POC Total CO2 Base Excess O2 Saturation ABG pCO2 ABG pO2 VBG pH 7.42 7.42 VBG pO2 30 29 VBG O2 Sat (Calc) 59 58 VBG O2 Content 27 27 VBG Base Excess 1 2 POC Mix VBG pCO2 Pt Tmp 39.6 L 39.9 L Sodium Potassium Chloride Carbon Dioxide Anion Gap BUN Creatinine Estim Creat Clear Calc Est GFR (MDRD) Af Amer Est GFR (MDRD) Non-Af BUN/Creatinine Ratio Glucose Calcium Hep Bs Antigen Hep Bs Antibody 05/24/18 09:00 WBC RBC Hgb Hct MCV MCH MCHC RDW RDW Differential Plt Count MPV Immature Gran % (Auto) Neut % (Auto) Lymph % (Auto) [place] % (Auto) Eos % (Auto) Baso % (Auto) Absolute Neuts (auto) Absolute Lymphs (auto) Total Counted PT INR APTT Specimen Type ART pH 7.29 L Bicarbonate Actual 22.6 POC Total CO2 24 Base Excess -4 L O2 Saturation 87 L ABG pCO2 47.2 H ABG pO2 59 L VBG pH VBG pO2 VBG O2 Sat (Calc) VBG O2 Content VBG Base Excess POC Mix VBG pCO2 Pt Tmp Sodium Potassium Chloride Carbon Dioxide Anion Gap BUN Creatinine Estim Creat Clear Calc Est GFR (MDRD) Af Amer Est GFR (MDRD) Non-Af BUN/Creatinine Ratio Glucose Calcium Hep Bs Antigen Hep Bs Antibody Medical Necessity - Tobacco Use Smoking Status: Current some day smoker Tobacco Use: Cigarettes Assessment/Plan All Active Problems Acute renal failure superimposed on chronic kidney disease (Acute) Acute respiratory failure with hypoxia (Acute) Diastolic CHF (Acute) 1- DAI on CKD DAI is most probably ATN from contrast exposure along prerenal from diuresis Baseline Cr seems around 1.4 mg/dL. creatinine continues to get worse. initiated on dialysis yesterday. seen on dialysis today. see orders/ flowsheets breathing looks better. will continue to try for fluid removal RIJ TDC in place plan is to continue HD until he is a little more stable renal function should recover 2- Acute hypoxemic RF due to CHF remains overloaded. HD today 3- Hypokalemia: better d/w Family at bedside reviewed cath report from Dr Barrientos. 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 Right renal A only has about 30% stenosis. not hemodynamically significant it seems. shouldnt need any stenting for now will follow
--- NOTE | 2018-05-24 13:29 | DIALYSIS ---
Hemodialysis tx comp[leted x 3 hours after Cardiac Cath. this morning without complications. Pt tolerated tx well. Fluid removed 3,400ml. Vitals stable throughout tx. Verbal report given to RAYMOND Roca post tx. Next dialysis per nephrology.
--- NOTE | 2018-05-24 13:35 | PN_ITS ---
Patient Problems: Active and Suspected Problems Acute renal failure superimposed on chronic kidney disease (Acute) Subjective: Patient did okay overnight. Patient did have a heart catheterization this morning showing elevated pulmonary capillary wedge pressure. Patient tolerated the procedure well and did not require BiPAP rescue. Patient reports no subjective change compared to previous. Patient did tolerate hemodialysis yesterday. - Physical Exam General: Alert, Oriented x3, Cooperative, No apparent distress, - - Appears older than stated age. Speaking in full sentences. HEENT: Atraumatic, PERRLA, EOMI, Normocephalic, - - Slight injection without icterus. Oral: Moist Mucosa, No Gingival or Mucosal Lesions/ Ulcerations, - - Poor dentition. Neck: Supple, No Nodes, Trachea Midline, - - Line is clean, dry and intact. Lungs: No rhonchi, No wheeze, No rales, Diminished, - - Symmetric expansion. No dullness to percussion. Cardiovascular: Regular rate, Regular Rhythm, Normal S1, Normal S2, Murmur, No rub noted, No Gallop Abdomen: Bowel Sounds Present, Soft, Non Tender, Non-Distended Extremities: No cyanosis, Clubbing, Edema Skin: No rashes, No breakdown Musculoskeletal: No Tenderness to Palpation of Joints or Extremities Lymphatic: No Cervical, Supraclavicular, or Inguinal Adenopathy Neurological: Cranial nerves II-XII grossly intact, Neuro grossly intact, Motor Exam 5/5 strength throughout Psych/Mental Status: Appropriate, Anxious Vital Signs Temp Pulse Resp BP Pulse Ox 36.5 C L 69 18 107/58 L 92 05/24/18 11:45 05/24/18 12:45 05/24/18 12:45 05/24/18 12:45 05/24/18 12:45 Oxygen Flow Rate (L/min) 4 Oxygen Delivery Method Nasal Cannula Weight: 85.4 kg Body Mass Index (BMI) 30.7 Intake and Output for Last 24 Hours 05/22/18 05/23/18 05/24/18 23:59 23:59 23:59 Intake Total 650 / 650 1030 / 1030 Output Total 500 / 500 475 / 475 150 / 150 Balance 150 / 150 555 / 555 -150 / -150 Laboratory Tests Past 24 Hrs 05/23/18 05/24/18 05/24/18 Unknown 05:25 05:25 WBC 10.1 RBC 3.13 L Hgb 9.3 L Hct 31.3 L MCV 100.0 H MCH 29.7 MCHC 29.7 L RDW 17.0 H RDW Differential 60.1 H Plt Count 113 L MPV 10.3 Immature Gran % (Auto) 0.400 Neut % (Auto) 76.3 H Lymph % (Auto) 10.2 L [place] % (Auto) 10.9 H Eos % (Auto) 2.0 Baso % (Auto) 0.2 Absolute Neuts (auto) 7.7 Absolute Lymphs (auto) 1.03 Total Counted Not Reportable PT INR APTT Specimen Type pH Bicarbonate Actual POC Total CO2 Base Excess O2 Saturation ABG pCO2 ABG pO2 VBG pH VBG pO2 VBG O2 Sat (Calc) VBG O2 Content VBG Base Excess POC Mix VBG pCO2 Pt Tmp Sodium 140 Potassium 3.9 Chloride 105 Carbon Dioxide 25.0 Anion Gap 10 BUN 56 H Creatinine 2.46 H Estim Creat Clear Calc 28.58 Est GFR (MDRD) Af Amer 34 L Est GFR (MDRD) Non-Af 28 L BUN/Creatinine Ratio 22.8 H Glucose 106 Calcium 7.7 L Hep Bs Antigen Negative Hep Bs Antibody Non Reactive 05/24/18 05/24/18 05/24/18 05:25 08:51 08:54 WBC RBC Hgb Hct MCV MCH MCHC RDW RDW Differential Plt Count MPV Immature Gran % (Auto) Neut % (Auto) Lymph % (Auto) [place] % (Auto) Eos % (Auto) Baso % (Auto) Absolute Neuts (auto) Absolute Lymphs (auto) Total Counted PT 14.0 INR 1.1 APTT 29.9 Specimen Type FER FER pH Bicarbonate Actual POC Total CO2 Base Excess O2 Saturation ABG pCO2 ABG pO2 VBG pH 7.42 7.42 VBG pO2 30 29 VBG O2 Sat (Calc) 59 58 VBG O2 Content 27 27 VBG Base Excess 1 2 POC Mix VBG pCO2 Pt Tmp 39.6 L 39.9 L Sodium Potassium Chloride Carbon Dioxide Anion Gap BUN Creatinine Estim Creat Clear Calc Est GFR (MDRD) Af Amer Est GFR (MDRD) Non-Af BUN/Creatinine Ratio Glucose Calcium Hep Bs Antigen Hep Bs Antibody 05/24/18 09:00 WBC RBC Hgb Hct MCV MCH MCHC RDW RDW Differential Plt Count MPV Immature Gran % (Auto) Neut % (Auto) Lymph % (Auto) [place] % (Auto) Eos % (Auto) Baso % (Auto) Absolute Neuts (auto) Absolute Lymphs (auto) Total Counted PT INR APTT Specimen Type ART pH 7.29 L Bicarbonate Actual 22.6 POC Total CO2 24 Base Excess -4 L O2 Saturation 87 L ABG pCO2 47.2 H ABG pO2 59 L VBG pH VBG pO2 VBG O2 Sat (Calc) VBG O2 Content VBG Base Excess POC Mix VBG pCO2 Pt Tmp Sodium Potassium Chloride Carbon Dioxide Anion Gap BUN Creatinine Estim Creat Clear Calc Est GFR (MDRD) Af Amer Est GFR (MDRD) Non-Af BUN/Creatinine Ratio Glucose Calcium Hep Bs Antigen Hep Bs Antibody Clinical Impression(s) from Imaging Studies Chest X-Ray 05/24/18 05:55 IMPRESSION: Cardiomegaly with mild failure. Resolved right lower lobe consolidation. A small left-sided effusion. Electronically Signed: Garland Cano, at 6:09 EDT Tel , Service support , Medical Necessity - Tobacco Use Smoking Status: Current some day smoker Tobacco Use: Cigarettes Assessment/Plan All Active Problems Acute renal failure superimposed on chronic kidney disease (Acute) Acute respiratory failure with hypoxia (Acute) Diastolic CHF (Acute) RECOMMENDATIONS: 1. Fluid management using hemodialysis 2. Wean oxygen as tolerated 3. Continue BiPAP therapy as needed. 4. Continue scheduled bronchodilators. 5. Okay to discharge from my perspective IMPRESSIONS: 1. Acute hypoxemic respiratory failure secondary to decompensated heart failure with evidence of bilateral pleural effusions Patient has tolerated thoracentesis and has clinical improvement. Recent chest x-ray shows improvement after initiation of hemodialysis. Patient did have a thoracentesis with 2 L removed in addition to the 4 L removed with hemodialysis. Patient's blood pressures have been stable. Aggressive fluid control will be vital given patient's elevated pulmonary capillary wedge pressure on heart catheterization. No interventions are required from a pulmonary perspective 2. Presumptive COPD of unknown severity Continue scheduled bronchodilators as ordered. Outpatient pulmonary function tests have been requested in the past, but patient continues to have repeated hospitalization interfering with testing. 3. Acute kidney injury Nephrology is following. Clinical concern for the development of ATN following contrast administration in combination with prerenal azotemia that developed as a consequence of diuresis. Patient to have hemodialysis today. Spoke with bedside nurse 4. History of tobacco dependence/coronary artery disease/hypertension/ hyperlipidemia/depression Complicates care, management, recovery and prognosis. Continue home medications as indicated. This note was generated with [facility] software. It may contain incorrect words, spelling, and punctuation that were not noted in checking the note before signing. Code Visit Inpatient E&M: 99283 Subs Hosp L2
--- NOTE | 2018-05-24 14:23 | CASEMGMT ---
Hep panel results back and faxed to [facility] with tunnel cath surgical progress notes. Pt updated on all at this time and agrees to Behavioral Health referral for anxiety. Pt declines HHC and CCN at this time, stating 'she() can help me.' states that they have friends/family that can help with pt once home, if needed. Call to Cony at [facility] and she states she will notify Carole of referral and pt will either be seen this afternoon or tomorrow am. Chris ANDRADE CM
[2018-05-24] MEDS: Tamsulosin HCl 0.4 MG Capsule PO ×2 (15:46→23:29)
[2018-05-24] MEDS: Ferrous Sulfate 325 MG Tablet PO (15:46)
[2018-05-24] MEDS: Sertraline 50 MG Tablet PO (15:47)
[2018-05-24] MEDS: Finasteride 5 MG Tablet PO (15:47)
--- NOTE | 2018-05-24 18:01 | PN_ITS ---
Patient Problems: Active and Suspected Problems Acute renal failure superimposed on chronic kidney disease (Acute) Subjective: Patient seen and examined today, he is undergoing dialysis, he underwent a cardiac catheterization today which did not result in any stent placement - Physical Exam General: Alert, Oriented x3, Cooperative, No apparent distress, Well developed HEENT: Atraumatic, PERRLA, EOMI, Normocephalic Oral: Moist Mucosa Neck: Supple, No JVD, No Nuchal Rigidity, Trachea Midline, Thyroid Normal Size and Texture Lungs: Clear to auscultation, Normal air movement, No rhonchi, No wheeze, No rales Cardiovascular: Regular rate, Regular Rhythm, Normal S1, Normal S2, No murmurs, No Ectopic Activity, PMI Normal, No rub noted, No Gallop Abdomen: Bowel Sounds Present, Soft, Non Tender Extremities: No edema, Capillary Refill Less than 3 Seconds Skin: No rashes, No breakdown Musculoskeletal: No Tenderness to Palpation of Joints or Extremities Neurological: Cranial nerves II-XII grossly intact, Neuro grossly intact, Sensory exam intact to light touch and pain Psych/Mental Status: Normal Affect, Appropriate, Alert and oriented to time, place, person, mood and affect Vital Signs Temp Pulse Resp BP Pulse Ox 98.1 F 67 20 H 128/51 H 94 05/24/18 17:06 05/24/18 17:06 05/24/18 17:06 05/24/18 17:06 05/24/18 17:06 Oxygen Flow Rate (L/min) [ 2 AMBULATION with Oxygen] Oxygen Flow Rate (L/min) 2 Oxygen Delivery Method Nasal Cannula Weight: 85.4 kg Body Mass Index (BMI) 30.7 Intake and Output for Last 24 Hours 05/22/18 05/23/18 05/24/18 23:59 23:59 23:59 Intake Total 650 / 650 1030 / 1030 30 / 30 Output Total 500 / 500 475 / 475 150 / 150 Balance 150 / 150 555 / 555 -120 / -120 Laboratory Tests Past 24 Hrs 05/23/18 05/24/18 05/24/18 Unknown 05:25 05:25 WBC 10.1 RBC 3.13 L Hgb 9.3 L Hct 31.3 L MCV 100.0 H MCH 29.7 MCHC 29.7 L RDW 17.0 H RDW Differential 60.1 H Plt Count 113 L MPV 10.3 Immature Gran % (Auto) 0.400 Neut % (Auto) 76.3 H Lymph % (Auto) 10.2 L [place] % (Auto) 10.9 H Eos % (Auto) 2.0 Baso % (Auto) 0.2 Absolute Neuts (auto) 7.7 Absolute Lymphs (auto) 1.03 Total Counted Not Reportable PT INR APTT Specimen Type pH Bicarbonate Actual POC Total CO2 Base Excess O2 Saturation ABG pCO2 ABG pO2 VBG pH VBG pO2 VBG O2 Sat (Calc) VBG O2 Content VBG Base Excess POC Mix VBG pCO2 Pt Tmp Sodium 140 Potassium 3.9 Chloride 105 Carbon Dioxide 25.0 Anion Gap 10 BUN 56 H Creatinine 2.46 H Estim Creat Clear Calc 28.58 Est GFR (MDRD) Af Amer 34 L Est GFR (MDRD) Non-Af 28 L BUN/Creatinine Ratio 22.8 H Glucose 106 Calcium 7.7 L Hep Bs Antigen Negative Hep Bs Antibody Non Reactive 05/24/18 05/24/18 05/24/18 05:25 08:51 08:54 WBC RBC Hgb Hct MCV MCH MCHC RDW RDW Differential Plt Count MPV Immature Gran % (Auto) Neut % (Auto) Lymph % (Auto) [place] % (Auto) Eos % (Auto) Baso % (Auto) Absolute Neuts (auto) Absolute Lymphs (auto) Total Counted PT 14.0 INR 1.1 APTT 29.9 Specimen Type FER FER pH Bicarbonate Actual POC Total CO2 Base Excess O2 Saturation ABG pCO2 ABG pO2 VBG pH 7.42 7.42 VBG pO2 30 29 VBG O2 Sat (Calc) 59 58 VBG O2 Content 27 27 VBG Base Excess 1 2 POC Mix VBG pCO2 Pt Tmp 39.6 L 39.9 L Sodium Potassium Chloride Carbon Dioxide Anion Gap BUN Creatinine Estim Creat Clear Calc Est GFR (MDRD) Af Amer Est GFR (MDRD) Non-Af BUN/Creatinine Ratio Glucose Calcium Hep Bs Antigen Hep Bs Antibody 05/24/18 09:00 WBC RBC Hgb Hct MCV MCH MCHC RDW RDW Differential Plt Count MPV Immature Gran % (Auto) Neut % (Auto) Lymph % (Auto) [place] % (Auto) Eos % (Auto) Baso % (Auto) Absolute Neuts (auto) Absolute Lymphs (auto) Total Counted PT INR APTT Specimen Type ART pH 7.29 L Bicarbonate Actual 22.6 POC Total CO2 24 Base Excess -4 L O2 Saturation 87 L ABG pCO2 47.2 H ABG pO2 59 L VBG pH VBG pO2 VBG O2 Sat (Calc) VBG O2 Content VBG Base Excess POC Mix VBG pCO2 Pt Tmp Sodium Potassium Chloride Carbon Dioxide Anion Gap BUN Creatinine Estim Creat Clear Calc Est GFR (MDRD) Af Amer Est GFR (MDRD) Non-Af BUN/Creatinine Ratio Glucose Calcium Hep Bs Antigen Hep Bs Antibody Medical Necessity - Tobacco Use Smoking Status: Current some day smoker Tobacco Use: Cigarettes Assessment/Plan All Active Problems Acute renal failure superimposed on chronic kidney disease (Acute) Acute respiratory failure with hypoxia (Acute) Diastolic CHF (Acute) #1 acute on chronic diastolic congestive heart failure-continue dialysis, cardiology participating in his care #2 pulmonary hypertension-mild #3 acute hypoxic respiratory failure-patient is currently on 2 L oxygen via nasal cannula at this time #4 acute kidney injury on a backdrop of chronic kidney disease stage III- nephrology is participating in his care, today he is currently getting dialysis #5 coronary artery [id number], medication treatment only at this time #6 anxiety #7 probable COPD #8 hypertension #9 generalized debility-PT and OT will continue to see the patient Code Visit Inpatient E&M: 31098 Subs Hosp L2
[2018-05-24] MEDS: Atorvastatin Calcium 80 MG Tablet PO (23:29)
[2018-05-24] MEDS: Heparin Injection (Vial) 5,000 UNIT/ML VIAL 5000 UNIT SC (23:29)
[2018-05-24] MEDS: Pramipexole Di-HCl 0.5 MG Tablet PO (23:30)
[2018-05-25] VITALS (18 sets, daily range): BP systolic 108–161; BP diastolic 38–85; PULSE 57–92; RESP 16–20; TEMP 36.4–37.1; O2SAT 94–97
[2018-05-25] MEDS: hydrALAZINE 50 MG Tablet 100 MG PO ×2 (06:19→14:48)
[2018-05-25 06:24] LABS: Anion Gap 9 (5-15); BUN 38 mg/dL (7-18); BUN/Creat Ratio 14.9 RATIO (10-20); Calcium,Total 8.2 mg/dL (8.5-10.1); Chloride 99 mmol/L (98-107); Creatinine, Serum 2.55 mg/dL (0.70-1.30); EST Glomerular Filtration Rate 27 mL/min (>60); Est Glom Filt Rate - Afr Amer 33 mL/min (>60); Estimated Creatinine Clearance 27.57 ml/min; Glucose 105 mg/dL (74-106); Sodium Level 135 mmol/L (136-145)
--- NOTE | 2018-05-25 07:20 | PN_ITS ---
Patient Problems: Active and Suspected Problems Acute renal failure superimposed on chronic kidney disease (Acute) Subjective: Patient did well overnight. No acute issues were reported. Patient believes respiratory status is unchanged compared to previous. Patient does not remember completing walking oximetry yesterday. - Physical Exam General: Alert, Oriented x3, Cooperative, No apparent distress, - - Speaks in full sentences. HEENT: Atraumatic, PERRLA, EOMI, Normocephalic, - - Slight scleral injection without icterus Oral: Moist Mucosa, No Gingival or Mucosal Lesions/ Ulcerations Neck: Supple, No JVD, No Nodes, Trachea Midline, - - Incisions appear clean, dry and intact. Lungs: No rhonchi, No wheeze, No rales, Diminished, - - No dullness to percussion Cardiovascular: Regular rate, Regular Rhythm, Normal S1, Normal S2, Murmur, No rub noted, No Gallop Abdomen: Bowel Sounds Present, Soft, Non Tender, Non-Distended Extremities: No cyanosis, Capillary Refill Less than 3 Seconds, Clubbing, Edema - Improving Skin: Incision - Clean, dry and intact Musculoskeletal: No Tenderness to Palpation of Joints or Extremities Lymphatic: No Cervical, Supraclavicular, or Inguinal Adenopathy Neurological: Cranial nerves II-XII grossly intact, Neuro grossly intact, Motor Exam 5/5 strength throughout Psych/Mental Status: Alert and oriented to time, place, person, mood and affect Vital Signs Temp Pulse Resp BP Pulse Ox 36.6 C 75 20 H 151/66 H 96 05/25/18 05:05 05/25/18 06:19 05/25/18 05:05 05/25/18 06:19 05/25/18 05:05 Oxygen Flow Rate (L/min) [ 2 AMBULATION with Oxygen] Oxygen Flow Rate (L/min) 2 Oxygen Delivery Method Nasal Cannula Weight: 84.3 kg Body Mass Index (BMI) 30.7 Intake and Output for Last 24 Hours 05/23/18 05/24/18 05/25/18 23:59 23:59 23:59 Intake Total 1030 / 1030 610 / 610 150 / 150 Output Total 475 / 475 300 / 300 50 / 50 Balance 555 / 555 310 / 310 100 / 100 Laboratory Tests Past 24 Hrs 05/23/18 05/24/18 05/24/18 Unknown 08:51 08:54 Specimen Type FER FER pH Bicarbonate Actual POC Total CO2 Base Excess O2 Saturation ABG pCO2 ABG pO2 VBG pH 7.42 7.42 VBG pO2 30 29 VBG O2 Sat (Calc) 59 58 VBG O2 Content 27 27 VBG Base Excess 1 2 POC Mix VBG pCO2 Pt Tmp 39.6 L 39.9 L Sodium Potassium Chloride Carbon Dioxide Anion Gap BUN Creatinine Estim Creat Clear Calc Est GFR (MDRD) Af Amer Est GFR (MDRD) Non-Af BUN/Creatinine Ratio Glucose Calcium Hep Bs Antigen Negative Hep Bs Antibody Non Reactive 05/24/18 05/25/18 09:00 05:25 Specimen Type ART pH 7.29 L Bicarbonate Actual 22.6 POC Total CO2 24 Base Excess -4 L O2 Saturation 87 L ABG pCO2 47.2 H ABG pO2 59 L VBG pH VBG pO2 VBG O2 Sat (Calc) VBG O2 Content VBG Base Excess POC Mix VBG pCO2 Pt Tmp Sodium 135 L Potassium 4.0 Chloride 99 Carbon Dioxide 27.0 Anion Gap 9 BUN 38 H Creatinine 2.55 H Estim Creat Clear Calc 27.57 Est GFR (MDRD) Af Amer 33 L Est GFR (MDRD) Non-Af 27 L BUN/Creatinine Ratio 14.9 Glucose 105 Calcium 8.2 L Hep Bs Antigen Hep Bs Antibody Medical Necessity - Tobacco Use Smoking Status: Current some day smoker Tobacco Use: Cigarettes Assessment/Plan All Active Problems Acute renal failure superimposed on chronic kidney disease (Acute) Acute respiratory failure with hypoxia (Acute) Diastolic CHF (Acute) RECOMMENDATIONS: 1. Fluid management using hemodialysis 2. Wean oxygen as tolerated 3. Sleep study can be performed as an outpatient to see if BiPAP therapy would be required 4. Continue scheduled bronchodilators. 5. Okay to discharge from my perspective. Follow-up with nurse practitioner in our office in 2 weeks IMPRESSIONS: 1. Acute hypoxemic respiratory failure secondary to decompensated heart failure with evidence of bilateral pleural effusions Patient continues to improve with optimal fluid management. Right heart catheterization did show elevated pulmonary capillary wedge pressure, so would continue fluid removal as blood pressure tolerated. Patient will require supplemental oxygen on discharge. 2. Presumptive COPD of unknown severity Continue scheduled bronchodilators as ordered. Outpatient pulmonary function tests have been requested in the past, but patient continues to have repeated hospitalization interfering with testing. 3. Acute kidney injury Nephrology is following. Clinical concern for the development of ATN following contrast administration in combination with prerenal azotemia that developed as a consequence of diuresis. Patient with multiple questions about the chronicity of hemodialysis. Defer to nephrology. 4. History of tobacco dependence/coronary artery disease/hypertension/ hyperlipidemia/depression Complicates care, management, recovery and prognosis. Continue home medications as indicated. This note was generated with [employer] software. It may contain incorrect words, spelling, and punctuation that were not noted in checking the note before signing. Code Visit Inpatient E&M: 43234 Subs Hosp L2
[2018-05-25] MEDS: Ipratropium/Albuterol Sulfate 3 ML AMPUL.NEB INHALATION ×3 (07:24→18:44)
[2018-05-25] MEDS: ALPRAZolam 0.5 MG Tablet PO ×2 (09:19→22:20)
[2018-05-25] MEDS: Heparin 10,000 UNITS/10 ML Vial 3200 UNITS IV (09:59)
--- NOTE | 2018-05-25 11:00 | CASEMGMT ---
RN JOHANNA NOTE: Faxed Oxygen order for concentrator and portable O2, demographic sheet, insurance info, and Home O2 qualification documentation to [facility] @ [phone]. Spoke with Stephanie @ [facility] and she confirmed the info was received. Junior UMAÑAN RN CM
--- NOTE | 2018-05-25 11:10 | DIALYSIS ---
Hep B sag (negative) 05/23/2018 Report form primary RN: Ceci Access: Right chest CVC: site benign, dressing dry and intact. Hemoafe applied x 2. Patient nervous d/t cramping during last HD tx. Xanax given prior to HD tx. Patient to be discharged today. Patient scheduled to go to [facility] at 7am for chronic dialysis. Patient and patient's notified.
--- NOTE | 2018-05-25 11:28 | PCM.PN.BLA ---
Progress Note seen on dialysis today breathing is ok had significant cramping yesterday on dialysis so UF set for 1 L today tunneled line in place ok to dc today has a TTS spot first shift at [facility]den has to be there at 645 AM on tuesday for next dialysis kathleen dialysis unit staff
--- NOTE | 2018-05-25 11:32 | BH.NOTE ---
BH: Inpatient Note - Notes Behavioral Health Inpatient Note: 05/25/18 11:32 Voucher Examiner requested consult from Behavioral Health because pt recently diagnosed with anxiety with difficulty managing symptoms. Pt was open to talking with behavioral health. This chart writer entered room and introduced self to pt and pt's , Heidy. This chart writer explained reason for coming to talk with pt. This chart writer briefly reviewed the [facility] Behavioral Health program and pt's reported that is not something pt could do due to needing to be at dialysis 3 times a week. This chart writer provided psychoeducation to pt about anxiety and impact anxiety can have on one's body. Pt reported he can relate to the information because he was been more anxious since January with having difficulty breathing and anxious when on dialysis. Pt requested some information on skills that could help with his anxiety. This chart writer reviewed proper breathing technique to help decrease anxiety and provided handout for breathing skills and grounding tools. This chart writer encouraged pt it could be helpful to have once a week counseling so he can continue to learn skills and have support. Pt agreeable that counseling could be helpful. This chart writer provided pt with two counseling agencies and numbers to call and set up an appointment. This chart writer left business card for pt to call this chart writer if has any additional questions. This chart writer updated progressive care unit registered nurse.
[2018-05-25] MEDS: Albuterol 2.5 MG/3 ML VIAL.NEB. INHALATION (11:46)
--- NOTE | 2018-05-25 13:42 | CASEMGMT ---
SW did speak w/pt in room in regard to completing POA/LW. Pt does not want to complete the forms at this time, will take the blank forms however. SW left the blank forms for the pt in the room. No further social service needs at this time. FABIAN Momin, PROCESS MECHANIC
--- NOTE | 2018-05-25 14:18 | DIALYSIS ---
Hemodialysis treatment complete. 3.5 hour run, 3k bath. Net fluid removed = 1000 ml. Patient tolerated HD tx well. Right chest CVC: site benign, dressing dry and intact. Lumen flushed with NS, filled to volume with Heparin, capped and clamped. Catheter is positional. Arterial pressure alarms exacerbated by patient anxiety. BFR decreased to 300 ml/min as needed to minimize machine alarms. Report given to primary RN: Ceci
[2018-05-25] MEDS: Carvedilol 12.5 MG Tablet PO (14:47)
[2018-05-25] MEDS: Aspirin E.C. 81 MG Tablet PO (14:47)
[2018-05-25] MEDS: Ferrous Sulfate 325 MG Tablet PO (14:47)
[2018-05-25] MEDS: amLODIPine 10 MG Tablet PO (14:48)
[2018-05-25] MEDS: Isosorbide Mononitrate 60 MG Tablet PO (14:48)
[2018-05-25] MEDS: Sertraline 50 MG Tablet PO (14:48)
[2018-05-25] MEDS: Tamsulosin HCl 0.4 MG Capsule PO ×2 (14:48→22:16)
[2018-05-25] MEDS: Finasteride 5 MG Tablet PO (14:48)
[2018-05-25] MEDS: Losartan Potassium 25 MG Tablet PO (14:48)
[2018-05-25] MEDS: Magnesium Hydroxide 30 ML UDC PO (14:49)
--- NOTE | 2018-05-25 15:21 | CASEMGMT ---
RAYMOND SPENCER NOTE: Portable O2 tank and tubing has been delivered to pt's room. Junior VALADEZ RN CM
--- NOTE | 2018-05-25 15:54 | PN.CARD_ITS ---
Subjectve: Patient doing fairly well this morning, had 3 consecutive runs of hemodialysis without difficulty. No chest pain or angina. Objective: Vital Signs Temp Pulse Resp BP Pulse Ox 98.8 F 69 20 H 161/79 H 95 05/25/18 14:10 05/25/18 15:16 05/25/18 14:10 05/25/18 14:48 05/25/18 14:10 Oxygen Flow Rate (L/min) [ 2 AMBULATION with Oxygen] Oxygen Flow Rate (L/min) 3 Oxygen Delivery Method Nasal Cannula Weight: 185 lb 13.595 oz Body Mass Index (BMI) 30.7 Intake and Output for Last 24 Hours 05/23/18 05/24/18 05/25/18 23:59 23:59 23:59 Intake Total 1030 / 1030 610 / 610 390 / 390 Output Total 475 / 475 300 / 300 1150 / 1150 Balance 555 / 555 310 / 310 -760 / -760 General: Awake, Alert, Oriented x 3 HEENT: PERRL, EOMI, Sclera Non Icteric Neck: Supple, Good ROM, No Lymph Node Enlargement Lungs: Clear to auscultation Cardiovascular: Regular Rhythm, Normal S1, Normal S2, No Murmurs, No Rubs, No Gallops 05/25/18 05:25: Sodium 135 L, Potassium 4.0, Chloride 99, Carbon Dioxide 27.0, Anion Gap 9, BUN 38 H, Creatinine 2.55 H, Est GFR (MDRD) Af Amer 33 L, Est GFR ( MDRD) Non-Af 27 L, BUN/Creatinine Ratio 14.9, Glucose 105, Calcium 8.2 L Rhythm: EKG: ECHO: Stress Test: Cardiac Cath: PCI: CT Surgery: Holter monitor: EPS: PPM: CXR: Chest CT Scan: Medical Necessity - Tobacco Use Smoking Status: Current some day smoker Tobacco Use: Cigarettes Assessment/Plan 1. Congestive heart failure: The patient presents with diastolic congestive heart failure possibly superimposed on known coronary disease as well as COPD. Patient was recently discharged after a negative dobutamine echocardiogram, however he returned with worsening shortness of breath, orthopnea, PND and abdominal bloating. He has responded well to IV diuretic therapy. He reports he was eating cheeseburgers at home after he was discharged recently. Patient underwent right-sided thoracentesis removing about 1700 cc of fluid and his breathing has improved but still cannot lay down flat to endure a left and right heart catheterization. Patient then underwent hemodialysis soon after that and removed an additional 4 L followed by additional liter yesterday. Patient was undergoing hemodialysis when I visited him today with the hope that he would have another additional liter removed. I recommended that we decrease his Coreg to 12.5 mg p.o. twice daily given his congestive heart failure symptoms, however his blood pressure has increased significantly despite hemodialysis. Recommend increasing his Coreg back to 25 mg p.o. twice daily.. My suspicion is is that his fluid problems are more of a result of his chronic renal insufficiency and possibly obstructive uropathy at his prostate level, then his LV dysfunction would indicate. Patient underwent repeat catheterization and graft angiography which demonstrated widely patent grafts, widely patent stents to his RCA, and intact normal LV function. Patient has significant diastolic dysfunction. In the meantime we will continue Coreg, Imdur, and amlodipine. Continue aspirin and Plavix. 2. Chronic renal insufficiency: Many thanks to renal for assisting with the patient's care and for facilitating catheter placement and hemodialysis today. 3. Hyperlipidemia: Given the patient's end-stage renal disease, coronary disease, he requires aggressive LDL reduction. Continue max dose Lipitor. 4. Patient apparently is ambulated in the hallway with assistance, with his walker, and apparently is stable enough to discharge to his home. He will follow-up with me in several weeks time. Discussed with Dr. Lakhwinder Lugo Visit Inpatient E&M: 65982 Subs Hosp L2
--- NOTE | 2018-05-25 15:59 | PCM.HOSP.N ---
Hospitalist Note He will require home O2 which is portable due to the fact he is ambulatory and expected to use it outside the home, at rest on room, air his PO2 sat was 90, on ambulating on room air it was 87%, it was 90% oxygen saturation on 2 L ambulating
--- NOTE | 2018-05-25 16:47 | CASEMGMT ---
F2F for home oxygen faxed to [facility] at this time. Chris ANDRADE CM
--- NOTE | 2018-05-25 17:02 | DCINST_ITS ---
- Discharge Diagnoses Current Active Problems: Current Active and Chronic Problems Acute renal failure superimposed on chronic kidney disease (Acute) You will use the following diet at home:: Regular, Other - 1.5 liter per day fluid restriction Your food should be the consistency of: Regular Your liquids should be the consistency of: Regular/Thin Discharge Activity: Return to Normal Activity Allergies/Adverse Reactions: Allergies irbesartan [From Avapro] Adverse Reaction (Verified 05/15/18 20:06) Other zolpidem [From Ambien] Adverse Reaction (Verified 05/15/18 20:06) Other Medications to take at Discharge Aspirin [Aspirin, Baby] 81 mg PO DAILY@0800 01/28/18 Ropinirole HCl [Requip] 1 mg PO QHS 01/28/18 Rosuvastatin Calcium [Crestor] 40 mg PO QHS 01/28/18 Tamsulosin HCl [Flomax] 0.4 mg PO BID 01/28/18 Finasteride [Proscar] 5 mg PO DAILY 04/08/18 Albuterol Aerosols [Ventolin Aerosols] 2.5 mg INHALATION Q4H PRN 05/10/18 Amlodipine [Norvasc] 5 mg PO DAILY 05/10/18 Ferrous Sulfate 325 mg PO BIDCM 05/10/18 Sertraline HCl [Zoloft] 50 mg PO DAILY 05/10/18 Carvedilol [Coreg (Beta Kadi)] 25 mg PO BID #60 tab 05/13/18 Isosorbide Mononitrate [Imdur] 30 mg PO DAILY #30 tab 05/13/18 ALPRAZolam [Xanax] 0.5 mg PO TID PRN PRN #30 tablet 05/25/18 Amlodipine [Norvasc] 10 mg PO DAILY #180 tablet 05/25/18 Aspirin E.C. [Ecotrin] 81 mg PO DAILY@0800 tablet 05/25/18 Clopidogrel Bisulfate [Plavix] 75 mg PO DAILY #1 tablet 05/25/18 Losartan Potassium [Cozaar] 25 mg PO DAILY #30 tab 05/25/18 hydrALAZINE [Apresoline] 100 mg PO TID #180 tablet 05/25/18 The following prescriptions were given: ALPRAZolam [Xanax] 0.5 mg PO TID PRN PRN #30 tablet PRN Reason: ANXIETY Amlodipine [Norvasc] 10 mg PO DAILY #180 tablet Clopidogrel Bisulfate [Plavix] 75 mg PO DAILY #1 tablet Losartan Potassium [Cozaar] 25 mg PO DAILY #30 tab hydrALAZINE [Apresoline] 100 mg PO TID #180 tablet Primary Care Physician: Tania Berger NP-C [Primary Care Provider] - Please follow up with your Primary Care Physician in: in 1-2 weeks Test Results: Test results from this visit will be discussed in further detail at your follow- up appointment, if applicable. Please Follow Up With: dialysis on Tuesday
[2018-05-25] MEDS: 0.9% Normal Saline 1,000 ML 250 ML IV (18:30)
--- NOTE | 2018-05-25 19:19 | CPS ---
there was no bipap in pt room
[2018-05-25] MEDS: 0.9% Normal Saline 250 ML IV.SOLN. IV (19:45)
--- NOTE | 2018-05-25 19:53 | PN_ITS ---
Patient Problems: Active and Suspected Problems Acute renal failure superimposed on chronic kidney disease (Acute) Subjective: Patient was seen and examined earlier today, arrangements were made for the patient to be discharged to home and his discharge instructions and discharge orders were placed, upon getting the patient up from bed into a wheelchair patient became very dizzy and his blood pressure was in the 70s systolic. I had nursing start an IV and give him to 50 cc of normal saline over about an hour, his pressure however remained in the 70s systolic, at that point, I have decided to keep the patient until tomorrow to try to get his blood pressure stabilized. I will give him 1 more 250 cc saline administration over 2 hours, I will hold his Apresoline tonight, I will reduce the Apresoline tomorrow to 50 mg 3 times daily and reduce his Norvasc to 5 mg daily starting tomorrow. I will reevaluate the patient in the morning for discharge, hopefully he will be more stable for discharge at that time. - Physical Exam General: Alert, Oriented x3, Cooperative, No apparent distress, Well developed HEENT: Atraumatic, PERRLA, EOMI, Normocephalic Oral: Moist Mucosa Neck: Supple, No JVD, No Nuchal Rigidity, Trachea Midline, Thyroid Normal Size and Texture Lungs: Clear to auscultation, Normal air movement, No rhonchi, No wheeze, No rales Cardiovascular: Regular rate, Regular Rhythm, Normal S1, Normal S2, No murmurs, No Ectopic Activity Abdomen: Bowel Sounds Present, Soft, Non Tender, Non-Distended, No hernias noted Extremities: No clubbing, No cyanosis, No edema, Capillary Refill Less than 3 Seconds Skin: No rashes, No breakdown Musculoskeletal: No Tenderness to Palpation of Joints or Extremities Neurological: Cranial nerves II-XII grossly intact, Neuro grossly intact Psych/Mental Status: Normal Affect, Appropriate, Alert and oriented to time, place, person, mood and affect Vital Signs Temp Pulse Resp BP Pulse Ox 98.7 F 92 16 137/85 H 95 05/25/18 16:42 05/25/18 18:45 05/25/18 18:45 05/25/18 16:42 05/25/18 18:45 Oxygen Flow Rate (L/min) [ 2 AMBULATION with Oxygen] Oxygen Flow Rate (L/min) 2 Oxygen Delivery Method Nasal Cannula Weight: 84.3 kg Body Mass Index (BMI) 30.7 Intake and Output for Last 24 Hours 05/23/18 05/24/18 05/25/18 23:59 23:59 23:59 Intake Total 1030 / 1030 610 / 610 510 / 510 Output Total 475 / 475 300 / 300 1150 / 1150 Balance 555 / 555 310 / 310 -640 / -640 Laboratory Tests Past 24 Hrs 05/25/18 05:25 Sodium 135 L Potassium 4.0 Chloride 99 Carbon Dioxide 27.0 Anion Gap 9 BUN 38 H Creatinine 2.55 H Estim Creat Clear Calc 27.57 Est GFR (MDRD) Af Amer 33 L Est GFR (MDRD) Non-Af 27 L BUN/Creatinine Ratio 14.9 Glucose 105 Calcium 8.2 L Medical Necessity - Tobacco Use Smoking Status: Current some day smoker Tobacco Use: Cigarettes Assessment/Plan All Active Problems Acute renal failure superimposed on chronic kidney disease (Acute) Acute respiratory failure with hypoxia (Acute) Diastolic CHF (Acute) #1 acute on chronic diastolic congestive heart failure-patient's medications were adjusted, I will reevaluate him in the morning for discharge #2 pulmonary hypertension-mild #3 acute hypoxic respiratory failure-patient is currently on 2 L oxygen via nasal cannula at this time #4 acute kidney injury on a backdrop of chronic kidney disease stage III- nephrology is participating in his care #5 coronary artery [id number]-gwyziu, medication treatment only at this time #6 anxiety #7 probable COPD #8 hypertension #9 generalized debility-PT and OT will continue to see the patient Code Visit Inpatient E&M: 93521 Subs Hosp L2
[2018-05-25] MEDS: Atorvastatin Calcium 80 MG Tablet PO (22:16)
[2018-05-25] MEDS: Pramipexole Di-HCl 0.5 MG Tablet PO (22:16)
[2018-05-25] MEDS: Heparin Injection (Vial) 5,000 UNIT/ML VIAL 5000 UNIT SC (22:20)
--- NOTE | 2018-05-25 23:15 | CPS ---
bipap not in pt room
[2018-05-26] VITALS (13 sets, daily range): BP systolic 87–126; BP diastolic 32–62; PULSE 57–72; RESP 16–18; TEMP 36.3–36.9; O2SAT 90–98
[2018-05-26] MEDS: ALPRAZolam 0.5 MG Tablet PO (03:13)
[2018-05-26] MEDS: Ipratropium/Albuterol Sulfate 3 ML AMPUL.NEB INHALATION ×2 (06:57→13:39)
--- NOTE | 2018-05-26 07:58 | PN_ITS ---
Patient Problems: Active and Suspected Problems Acute renal failure superimposed on chronic kidney disease (Acute) Subjective: Patient was to be discharged yesterday. However, patient became very dizzy with standing and noted to have decreased blood pressures. This was thought to be secondary to volume removal and patient has received IV fluids overnight. Blood pressure medications were also decreased. Patient reports no symptoms with lying flat this morning, but was not stood through my evaluation. - Physical Exam General: Alert, Oriented x3, Cooperative, No apparent distress, - - Symmetric expansion. No dullness to percussion. HEENT: Atraumatic, PERRLA, EOMI, Normocephalic, - - No scleral icterus or injection noted. Oral: Moist Mucosa, No Gingival or Mucosal Lesions/ Ulcerations Neck: Supple, No JVD, No Nodes, Trachea Midline Lungs: No rhonchi, No wheeze, No rales, Diminished Cardiovascular: Regular rate, Regular Rhythm, Normal S1, Normal S2, Murmur, No rub noted, No Gallop Abdomen: Bowel Sounds Present, Soft, Non Tender, Non-Distended Extremities: No cyanosis, Capillary Refill Less than 3 Seconds, Clubbing, Edema Skin: - - Some ecchymosis noted on the abdomen. Musculoskeletal: No Tenderness to Palpation of Joints or Extremities Lymphatic: No Cervical, Supraclavicular, or Inguinal Adenopathy Neurological: Cranial nerves II-XII grossly intact, Neuro grossly intact, Motor Exam 5/5 strength throughout Psych/Mental Status: Alert and oriented to time, place, person, mood and affect Vital Signs Temp Pulse Resp BP Pulse Ox 36.4 C L 57 L 16 104/39 L 95 05/26/18 05:35 05/26/18 07:09 05/26/18 05:35 05/26/18 05:37 05/26/18 05:35 Oxygen Flow Rate (L/min) [ 2 AMBULATION with Oxygen] Oxygen Flow Rate (L/min) 2 Oxygen Delivery Method Nasal Cannula Weight: 84.3 kg Body Mass Index (BMI) 30.7 Intake and Output for Last 24 Hours 05/24/18 05/25/18 05/26/18 23:59 23:59 23:59 Intake Total 610 / 610 510 / 510 906 / 906 Output Total 300 / 300 1150 / 1150 0 / 0 Balance 310 / 310 -640 / -640 906 / 906 Medical Necessity - Tobacco Use Smoking Status: Current some day smoker Tobacco Use: Cigarettes Assessment/Plan All Active Problems Acute renal failure superimposed on chronic kidney disease (Acute) Acute respiratory failure with hypoxia (Acute) Diastolic CHF (Acute) RECOMMENDATIONS: 1. Fluid management using hemodialysis 2. Check orthostatics. If okay, can discharge from my perspective with previous plan. 3. Sleep study can be performed as an outpatient to see if BiPAP therapy would be required 4. Continue scheduled bronchodilators. 5. Okay to discharge from my perspective. Follow-up with nurse practitioner in our office in 2 weeks IMPRESSIONS: 1. Acute hypoxemic respiratory failure secondary to decompensated heart failure with evidence of bilateral pleural effusions Patient continues to improve with optimal fluid management. Right heart catheterization did show elevated pulmonary capillary wedge pressure, so would continue fluid removal as blood pressure tolerated. Patient will require supplemental oxygen on discharge. Patient orthostatic yesterday. Blood pressure medications have been altered. No change in pulmonary plan on discharge. Patient should follow-up in 2 weeks with nurse practitioner. 2. Presumptive COPD of unknown severity Continue scheduled bronchodilators as ordered. Outpatient pulmonary function tests have been requested in the past, but patient continues to have repeated hospitalization interfering with testing. 3. Acute kidney injury Nephrology is following. Clinical concern for the development of ATN following contrast administration in combination with prerenal azotemia that developed as a consequence of diuresis. Patient with multiple questions about the chronicity of hemodialysis. Defer to nephrology. 4. History of tobacco dependence/coronary artery disease/hypertension/ hyperlipidemia/depression Complicates care, management, recovery and prognosis. Continue home medications as indicated. This note was generated with [employer] software. It may contain incorrect words, spelling, and punctuation that were not noted in checking the note before signing. Code Visit Inpatient E&M: 29544 Subs Hosp L2
[2018-05-26] MEDS: Aspirin E.C. 81 MG Tablet PO (08:11)
[2018-05-26] MEDS: Ferrous Sulfate 325 MG Tablet PO (08:11)
[2018-05-26] MEDS: Tamsulosin HCl 0.4 MG Capsule PO (10:46)
[2018-05-26] MEDS: Finasteride 5 MG Tablet PO (10:46)
[2018-05-26] MEDS: Sertraline 50 MG Tablet PO (10:46)
--- NOTE | 2018-05-26 12:14 | DCINST_ITS ---
- Discharge Diagnoses Current Active Problems: Current Active and Chronic Problems Acute renal failure superimposed on chronic kidney disease (Acute) You will use the following diet at home:: Renal (restricted protein/sodium) Your food should be the consistency of: Regular Your liquids should be the consistency of: Regular/Thin Discharge Activity: Return to Normal Activity Weight Bearing Status: Full weight bearing Allergies/Adverse Reactions: Allergies irbesartan [From Avapro] Adverse Reaction (Verified 05/15/18 20:06) Other zolpidem [From Ambien] Adverse Reaction (Verified 05/15/18 20:06) Other Medications to take at Discharge Aspirin [Aspirin, Baby] 81 mg PO DAILY@0800 01/28/18 Ropinirole HCl [Requip] 1 mg PO QHS 01/28/18 Rosuvastatin Calcium [Crestor] 40 mg PO QHS 01/28/18 Tamsulosin HCl [Flomax] 0.4 mg PO BID 01/28/18 Finasteride [Proscar] 5 mg PO DAILY 04/08/18 Albuterol Aerosols [Ventolin Aerosols] 2.5 mg INHALATION Q4H PRN 05/10/18 Amlodipine [Norvasc] 5 mg PO DAILY 05/10/18 Ferrous Sulfate 325 mg PO BIDCM 05/10/18 Sertraline HCl [Zoloft] 50 mg PO DAILY 05/10/18 Carvedilol [Coreg (Beta Kadi)] 25 mg PO BID #60 tab 05/13/18 ALPRAZolam [Xanax] 0.5 mg PO TID PRN PRN #30 tablet 05/25/18 Aspirin E.C. [Ecotrin] 81 mg PO DAILY@0800 tablet 05/25/18 Clopidogrel Bisulfate [Plavix] 75 mg PO DAILY #1 tablet 05/25/18 Losartan Potassium [Cozaar] 25 mg PO DAILY #30 tab 05/25/18 Isosorbide Mononitrate [Imdur] 30 mg PO DAILY #30 tab 05/26/18 The following prescriptions were given: ALPRAZolam [Xanax] 0.5 mg PO TID PRN PRN #30 tablet PRN Reason: ANXIETY Clopidogrel Bisulfate [Plavix] 75 mg PO DAILY #1 tablet Isosorbide Mononitrate [Imdur] 30 mg PO DAILY #30 tab Losartan Potassium [Cozaar] 25 mg PO DAILY #30 tab Primary Care Physician: Tania Berger, MABLEC [Primary Care Provider] - Please follow up with your Primary Care Physician in: in 1-2 weeks Test Results: Test results from this visit will be discussed in further detail at your follow- up appointment, if applicable. Please Follow Up With: dialysis on Tuesday
--- NOTE | 2018-05-26 12:29 | PCM.PN.REN ---
Patient Problems: Active and Suspected Problems Acute renal failure superimposed on chronic kidney disease (Acute) Subjective: no new complaints - Physical Exam General: Alert, Oriented x3, Cooperative HEENT: Atraumatic, PERRLA, EOMI, Normocephalic Neck: Supple, No JVD, Negative Carotid Bruits Lungs: Clear to auscultation, Normal air movement Cardiovascular: Regular rate, No murmurs Abdomen: Bowel Sounds Present, Soft, Non Tender Extremities: No edema, Capillary Refill Less than 3 Seconds Skin: No rashes, No breakdown Musculoskeletal: No Tenderness to Palpation of Joints or Extremities Neurological: Cranial nerves II-XII grossly intact Psych/Mental Status: Normal Affect, Appropriate Vital Signs Temp Pulse Resp BP Pulse Ox 98.5 F 68 16 87/38 L 95 05/26/18 10:31 05/26/18 11:00 05/26/18 10:31 05/26/18 10:42 05/26/18 10:31 Oxygen Flow Rate (L/min) [ 2 AMBULATION with Oxygen] Oxygen Flow Rate (L/min) 2 Oxygen Delivery Method Nasal Cannula Weight: 84.3 kg Body Mass Index (BMI) 30.7 Intake and Output for Last 24 Hours 05/24/18 05/25/18 05/26/18 23:59 23:59 23:59 Intake Total 610 / 610 510 / 510 1306 / 1306 Output Total 300 / 300 1150 / 1150 0 / 0 Balance 310 / 310 -640 / -640 1306 / 1306 Medical Necessity - Tobacco Use Smoking Status: Current some day smoker Tobacco Use: Cigarettes Assessment/Plan All Active Problems Acute renal failure superimposed on chronic kidney disease (Acute) Acute respiratory failure with hypoxia (Acute) Diastolic CHF (Acute) 1- DAI on CKD DAI is most probably ATN from contrast exposure along prerenal from diuresis Baseline Cr seems around 1.4 mg/dL. initiated on dialysis this admission breathing looks better. RIJ TDC in place plan is to continue HD until he is a little more stable HD TTS schedule 2- Acute hypoxemic RF due to CHF better 3- Hypokalemia: better 4- Hypotension. decrease antihypertensives today d/w Family at bedside reviewed cath report from Dr Barrientos. 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 Right renal A only has about 30% stenosis. not hemodynamically significant. shouldnt need any stenting for now d/w Dr Tereletsky if Bp better later today, can be discharged
[2018-05-26] MEDS: Midodrine HCl 5 MG Tablet 10 MG PO (15:14)
--- NOTE | 2018-05-28 16:09 | DS.PCM_ITS ---
Discharge Date and Diagnosis Date of Admission: 05/15/18 Date of Discharge: 05/26/18 - Primary Discharge Diagnosis #1 acute on chronic diastolic congestive heart failure- #2 pulmonary hypertension-mild #3 acute hypoxic respiratory failure-secondary to congestive heart failure #4 acute kidney injury on a backdrop of chronic kidney disease stage III- requiring dialysis #5 coronary artery orrhvfj-[id number], medication treatment only at this time #6 anxiety disorder #7 probable COPD #8 hypertension #9 generalized debility #10 hypokalemia - Secondary Discharge Diagnosis Chronic Problems HLD (hyperlipidemia) (Chronic) HTN (hypertension) (Chronic) PAD (peripheral artery disease) (Chronic) CAD (coronary artery disease) (Chronic) COPD (chronic obstructive pulmonary disease) (Chronic) Tobacco dependence (Chronic) CKD (chronic kidney disease) (Chronic) Leukocytosis (Chronic) Anemia (Chronic) BPH (benign prostatic hyperplasia) (Chronic) Hospital Course and Treatment Operations: None Procedures: Cardiac catheterization, Dialysis, Thoracentesis, - - Insertion of tunneled hemodialysis catheter Summary of Care Provided: The patient is a 67 year old M was seen in the emergency room with a chief complaint of shortness of breath, he had recently been released from the hospital after being treated for a CHF exacerbation. Evaluation in the emergency room included chest x-ray which showed congestive heart failure, lab work showed a negative troponin, beta natruretic peptide was elevated, creatinine was elevated. Patient was admitted for acute on chronic diastolic congestive heart failure and hypoxic respiratory failure, he required BiPAP to maintain his pulse ox in the emergency room. Patient was initially treated with IV Bumex and attempt to remove fluid, he did not respond to this treatment. Patient was seen in consultation by nephrology, cardiology, and ultimately by pulmonary medicine. Patient underwent a right thoracentesis with removal of 2 L of fluid. Patient had insertion of a tunneled dialysis catheter, and he underwent dialysis, he went for cardiac catheterization and was found to have no need for cardiac intervention. Patient slowly improved during his hospitalization, PT and OT saw the patient during his hospitalization, patient did not desire to go to a residential facility. On 05/26/18, patient was seen and examined felt to be in stable condition for discharge home Discharge Activity: Return to Normal Activity Weight Bearing Status: Full weight bearing Home Medications: Medications to take at Discharge Aspirin [Aspirin, Baby] 81 mg PO DAILY@0800 01/28/18 Ropinirole HCl [Requip] 1 mg PO QHS 01/28/18 Rosuvastatin Calcium [Crestor] 40 mg PO QHS 01/28/18 Tamsulosin HCl [Flomax] 0.4 mg PO BID 01/28/18 Finasteride [Proscar] 5 mg PO DAILY 04/08/18 Albuterol Aerosols [Ventolin Aerosols] 2.5 mg INHALATION Q4H PRN 05/10/18 Amlodipine [Norvasc] 5 mg PO DAILY 05/10/18 Ferrous Sulfate 325 mg PO BIDCM 05/10/18 Sertraline HCl [Zoloft] 50 mg PO DAILY 05/10/18 Carvedilol [Coreg (Beta Kadi)] 25 mg PO BID #60 tab 05/13/18 ALPRAZolam [Xanax] 0.5 mg PO TID PRN PRN #30 tablet 05/25/18 Aspirin E.C. [Ecotrin] 81 mg PO DAILY@0800 tablet 05/25/18 Clopidogrel Bisulfate [Plavix] 75 mg PO DAILY #1 tablet 05/25/18 Losartan Potassium [Cozaar] 25 mg PO DAILY #30 tab 05/25/18 Isosorbide Mononitrate [Imdur] 30 mg PO DAILY #30 tab 05/26/18 Following Prescrptions Were Given to Patient: ALPRAZolam [Xanax] 0.5 mg PO TID PRN PRN #30 tablet PRN Reason: ANXIETY Clopidogrel Bisulfate [Plavix] 75 mg PO DAILY #1 tablet Isosorbide Mononitrate [Imdur] 30 mg PO DAILY #30 tab Losartan Potassium [Cozaar] 25 mg PO DAILY #30 tab Primary Care Physician: Tania Berger NP-C [Primary Care Provider] - Please follow up with your Primary Care Physician in: in 1-2 weeks Please Follow Up With: dialysis on Tuesday Please Follow Up With: Tania Berger NP-C Disposition: Home Minutes spent on discharge:: 36 Patient Condition:: Stable Medical Necessity - Tobacco Use Smoking Status: Current some day smoker Tobacco Use: Cigarettes Meaningful Use Info Meaningful Use Diagnoses (Choose all that apply): CHF - CHF HEATHER/ARB ordered at discharge?: No Reason HEATHER/ARB not ordered?: Worsening renal dysfunctn Documented LVEF (%): 55 Code Visit Inpatient E&M: 50428 Disch Hosp
--- NOTE | 2018-05-29 15:49 | CASEMGMT ---
RAYMOND SPENCER Discharge F/U phone call LACE: 17 Strata: 4 Discharge date: 05/26/18 Call date: 05/29/18 Call time: 1550 Attempted to reach pt without success at this time, message left with pt to call this RN JOHANNA back. SStaten RN CM Admission dx: CHF exacerbation
== END 2018-05-26 16:44 | disposition home or self-care (01) | DRG 286 ==
LOC: ED 21:58 → PCU 22:12
PROVIDERS: Hospitalist; Internal Medicine; Internal Medicine Cardiovascular Disease; Internal Medicine Nephrology; Physician Assistant; Surgery; Admitting Provider Family Medicine; Emergency Provider Emergency Medicine; Family Provider Nurse Practitioner Family; PCP Nurse Practitioner Family; Visit Provider Internal Medicine
PROC: 0JH63XZ Insertion of Tunneled Vascular Access Device into Chest Subcutaneous Tissue and Fascia, Percutaneous Approach (ICD-10-PCS; principal; 2018-05-22 15:30)
DX: I13.0 Hypertensive heart and chronic kidney disease with heart failure and stage 1 through stage 4 chronic kidney disease, or unspecified chronic kidney disease (principal); J96.01 Acute respiratory failure with hypoxia; I50.33 Acute on chronic diastolic (congestive) heart failure; N17.0 Acute kidney failure with tubular necrosis; J91.8 Pleural effusion in other conditions classified elsewhere; I25.10 Atherosclerotic heart disease of native coronary artery without angina pectoris; I27.20 Pulmonary hypertension, unspecified; J44.9 Chronic obstructive pulmonary disease, unspecified; I70.1 Atherosclerosis of renal artery; E87.6 Hypokalemia; R53.81 Other malaise; E78.5 Hyperlipidemia, unspecified; I73.9 Peripheral vascular disease, unspecified; N40.0 Benign prostatic hyperplasia without lower urinary tract symptoms; F17.210 Nicotine dependence, cigarettes, uncomplicated; N18.3 Chronic kidney disease, stage 3 (moderate); Z95.1 Presence of aortocoronary bypass graft; Z95.5 Presence of coronary angioplasty implant and graft; Z79.899 Other long term (current) drug therapy; D63.1 Anemia in chronic kidney disease; T50.2X5A Adverse effect of carbonic-anhydrase inhibitors, benzothiadiazides and other diuretics, initial encounter; Z79.82 Long term (current) use of aspirin
CPT/HCPCS: 32555; 36415; 36600; 71045; 71275; 75625; 76000; 76604; 80048; 82803; 83735; 83880; 84484; 85025; 85027; 85610; 85730; 86706; 87340; 90937; 93005; 93460; 94002; 94003; 94640; 94667; 94668; 97161; 97162; 97165; 97802; 99152; 99153; 99285; 99406; J7030; J7040; J7050; Q9967; A4216; C1750; C1751; C1769; C1894; G0257; J1940; J2405

== ENCOUNTER 2018-07-05 17:30 | Emergency (ER) | payer MEDICARE, SELFPAY ==
[2018-07-05 17:32] VITALS: BP 140/63; PULSE 68; RESP 16; TEMP 36.8; O2SAT 100; BMI 25.8
--- NOTE | 2018-07-05 19:07 | EKG12_ITS ---
Test Reason : SOB Blood Pressure : / mmHG Vent. Rate : 070 BPM Atrial Rate : 070 BPM P-R Int : 194 ms QRS Dur : 092 ms QT Int : 378 ms P-R-T Axes : -05 063 189 degrees QTc Int : 408 ms Normal sinus rhythm Left ventricular hypertrophy with repolarization abnormality Abnormal ECG Confirmed by VIKY MONTENEGRO, JOS ([id number]), photography editor SHIRA HURD ([id number]) on 07/06/2018 1:38:06 PM Referred By: DANYA Confirmed By:JOS SALMON MD
--- NOTE | 2018-07-05 19:07 | RAD_ITS ---
STUDY: X-RAY CHEST REASON FOR EXAM: Male, 67 years old. Chest and abdominal pain. TECHNIQUE: Single AP portable view of the chest. COMPARISON: May 24, 2018. FINDINGS: Stable right jugular hemodialysis catheter. The lungs are hyperexpanded. There is no mass or infiltrate. There is no demonstrated pleural abnormality. Sternal cerclage wires are present from a prior sternotomy. The heart is borderline enlarged. Normal mediastinum and justyn. Normal visualized pulmonary arteries. There is atherosclerotic calcification of the aortic arch with tortuosity. The thoracic spine is obscured by the mediastinum. Normal visualized ribs, clavicles, and shoulders. There is no demonstrated abnormality of the visualized soft tissue structures of the upper abdomen. RAD/Chest 1 View (Portable) IMPRESSION: 1. Borderline cardiomegaly with evidence of prior median sternotomy. This is stable 2. Hemodialysis catheter. 3. No acute pulmonary disease. There is resolution of the left pleural effusion noted on the earlier exam. Electronically Signed: John Bo DO at 19:35 EDT Tel [phone], Service support ,
--- NOTE | 2018-07-05 19:08 | ED.VISSUMM ---
- ER Visit Summary Date of Service: 07/05/18 Chief Complaint: Shortness of breath History of Present Illness: The patient is a 67 M who presents for 3-4 days of progressively worsening shortness of breath. Patient was at dialysis today when he had acute worsening of his shortness of breath. He missed the last 30 minutes of dialysis. He currently is feeling better but still mildly short of breath. He was on prednisone for the last 2 days for respiratory issues. Shortness of breath is worse with exertion and laying flat. He has an associated cough. He denies fever, chest pain, abdominal pain, nausea or vomiting, or diarrhea. Patient states he has not had a bowel movement in 4 days and is very constipated, with pressure and straining resulting in mild bleeding. He has discomfort secondary to constipation. Medical history includes coronary artery disease status post CABG, COPD, hypertension, hypercholesterolemia and end-stage renal disease on hemodialysis. Physical Examination: Vital signs: afebrile, hemodynamically stable, no hypoxia on room air General: well nourished, well developed, in no distress Skin: warm, dry, no rash, no pallor, dialysis port in right chest HEENT: normocephalic and atraumatic; PERRL, EOMI, moist mucous membranes Cardiovascular: regular rate and rhythm without murmurs, no peripheral edema, 2+ pulses all distal extremities Respiratory: Mild increased work of breathing, on nasal cannula at 96%, lungs show diffuse expiratory wheezing, no rales or rhonchi Abdominal: Abdomen is soft, nontender with normoactive bowel sounds, no guarding or rebound, no masses MSK: Moves all extremities, no deformities, normal strength Neuro: Awake and alert, oriented ?4. No facial droop, sensation and motor function intact and symmetric Test Results: Abnormal Lab Results 07/05/18 07/05/18 07/05/18 19:30 19:30 19:30 WBC 17.7 H RBC 4.31 L Hgb 13.0 Hct 40.2 MCV 93.3 MCH 30.2 MCHC 32.3 RDW 15.3 H RDW Differential 51.8 H Plt Count 179 MPV 9.9 Immature Gran % (Auto) 0.100 Neut % (Auto) 85.9 H Lymph % (Auto) 13.4 L [place] % (Auto) 0.3 Eos % (Auto) 0.2 Baso % (Auto) 0.1 Absolute Neuts (auto) 15.2 H Absolute Lymphs (auto) 2.37 Total Counted Not Reportable Troponin I 0.091 H B-Natriuretic Peptide 2393.9 H Clinical Impression(s) from Imaging Studies Chest X-Ray 07/05/18 19:07 IMPRESSION: 1. Borderline cardiomegaly with evidence of prior median sternotomy. This is stable 2. Hemodialysis catheter. 3. No acute pulmonary disease. There is resolution of the left pleural effusion noted on the earlier exam. Electronically Signed: John Bo, at 19:35 EDT Tel [phone], Service support , KUB X-Ray 07/05/18 19:15 IMPRESSION: No bowel obstruction. Constipation. Electronically Signed: Mateo Alejandro, at 19:49 EDT Tel , Service support , Medications Given Discontinued Medications Albuterol Sulfate (Ventolin Aerosols) 2.5 mg INHALATION Q20M JAIME Stop: 07/05/18 19:56 Last Admin: 07/05/18 19:37 Dose: 2.5 mg Admin: 07/05/18 19:37 Dose: 2.5 mg Admin: 07/05/18 19:20 Dose: 2.5 mg Albuterol/Ipratropium (Duoneb) 3 ml INHALATION X1 ONE Stop: 07/05/18 19:08 Last Admin: 07/05/18 19:20 Dose: 3 ml Prednisone () 60 mg PO X1 ONE Stop: 07/05/18 19:08 Last Admin: 07/05/18 19:40 Dose: 60 mg Emergency Department Course and Treatment: Discussed with patient that we will address his breathing issues first and then constipation. Patient does have diffuse wheezing, and was given a series of breathing treatments and oral prednisone. Chest x-ray was performed showing no sign of pneumonia and no overt fluid overload. Abdominal x-ray was consistent with constipation. EKG showed a sinus rhythm with no ischemia or ectopy. Patient had a leukocytosis of 17.7, which is consistent with the margin is from using prednisone over the last few days. Troponin was mildly elevated in the indeterminate range, but consistent with patient's prior troponin readings and likely due to his end-stage renal disease. Patient also had an elevated BNP which was consistent with chronic elevation when compared to prior readings. On reevaluation patient had complete resolution of his wheezing and stated he felt completely better in terms of the respiratory effort. He still had abdominal discomfort and pressure from the constipation Was offered an enema for his constipation. Patient eventually accepted, and he had a large bowel movement. He stated he felt much better and was ready to go home. He was discharged home and is to follow-up with his doctors, including his urologist to discuss whether his constipation is making it difficult for him to urinate. Treatment Plan: [] Disposition: [] Impression: COPD exacerbation, constipation This note was generated with [employer] dictation software. It may contain incorrect words, spelling, and punctuation that were not noted in review of the chart prior to signing ED Disposition - Plan for ED Patient: Disposition: Home or Assisted Living Chief Complaint: Shortness of Breath Instructions: ED Constipation, ED COPD Flare Prescriptions: Azithromycin [Zithromax Z-Jose] 250 mg PO UD #1 box Prednisone [Deltasone] 40 mg PO DAILY #10 tab Referrals: Tania Berger, [facility] [Primary Care Provider] - 3-5 Days if not improving Additional Instructions: Please take the prednisone as prescribed for 5 days. Take the antibiotics as prescribed for the full 5 days even if you feel better before they are complete. Take your breathing treatments at home as needed for wheezing and shortness of breath. If you have any worsening of your condition or any new concerning symptoms, please return immediately to the emergency department for another evaluation.
--- NOTE | 2018-07-05 19:11 | ED.DCSUM_ITS ---
- ER Visit Summary Date of Service: 07/05/18 Chief Complaint: Shortness of breath History of Present Illness: The patient is a 67 M who presents for 3-4 days of progressively worsening shortness of breath. Patient was at dialysis today when he had acute worsening of his shortness of breath. He missed the last 30 minutes of dialysis. He currently is feeling better but still mildly short of breath. He was on prednisone for the last 2 days for respiratory issues. Shortness of breath is worse with exertion and laying flat. He has an associated cough. He denies fever, chest pain, abdominal pain, nausea or vomiting, or diarrhea. Patient states he has not had a bowel movement in 4 days and is very constipated, with pressure and straining resulting in mild bleeding. He has discomfort secondary to constipation. Medical history includes coronary artery disease status post CABG, COPD, hypertension, hypercholesterolemia and end-stage renal disease on hemodialysis. Physical Examination: Vital signs: afebrile, hemodynamically stable, no hypoxia on room air General: well nourished, well developed, in no distress Skin: warm, dry, no rash, no pallor, dialysis port in right chest HEENT: normocephalic and atraumatic; PERRL, EOMI, moist mucous membranes Cardiovascular: regular rate and rhythm without murmurs, no peripheral edema, 2 + pulses all distal extremities Respiratory: Mild increased work of breathing, on nasal cannula at 96%, lungs show diffuse expiratory wheezing, no rales or rhonchi Abdominal: Abdomen is soft, nontender with normoactive bowel sounds, no guarding or rebound, no masses MSK: Moves all extremities, no deformities, normal strength Neuro: Awake and alert, oriented ?4. No facial droop, sensation and motor function intact and symmetric Test Results: Abnormal Lab Results 07/05/18 07/05/18 07/05/18 19:30 19:30 19:30 WBC 17.7 H RBC 4.31 L Hgb 13.0 Hct 40.2 MCV 93.3 MCH 30.2 MCHC 32.3 RDW 15.3 H RDW Differential 51.8 H Plt Count 179 MPV 9.9 Immature Gran % (Auto) 0.100 Neut % (Auto) 85.9 H Lymph % (Auto) 13.4 L [place] % (Auto) 0.3 Eos % (Auto) 0.2 Baso % (Auto) 0.1 Absolute Neuts (auto) 15.2 H Absolute Lymphs (auto) 2.37 Total Counted Not Reportable Troponin I 0.091 H B-Natriuretic Peptide 2393.9 H Clinical Impression(s) from Imaging Studies Chest X-Ray 07/05/18 19:07 IMPRESSION: 1. Borderline cardiomegaly with evidence of prior median sternotomy. This is stable 2. Hemodialysis catheter. 3. No acute pulmonary disease. There is resolution of the left pleural effusion noted on the earlier exam. Electronically Signed: John Bo, at 19:35 EDT Tel [phone], Service support , KUB X-Ray 07/05/18 19:15 IMPRESSION: No bowel obstruction. Constipation. Electronically Signed: Mateo Alejandro, at 19:49 EDT Tel , Service support , Medications Given Discontinued Medications Albuterol Sulfate (Ventolin Aerosols) 2.5 mg INHALATION Q20M JAIME Stop: 07/05/18 19:56 Last Admin: 07/05/18 19:37 Dose: 2.5 mg Admin: 07/05/18 19:37 Dose: 2.5 mg Admin: 07/05/18 19:20 Dose: 2.5 mg Albuterol/Ipratropium (Duoneb) 3 ml INHALATION X1 ONE Stop: 07/05/18 19:08 Last Admin: 07/05/18 19:20 Dose: 3 ml Prednisone () 60 mg PO X1 ONE Stop: 07/05/18 19:08 Last Admin: 07/05/18 19:40 Dose: 60 mg Emergency Department Course and Treatment: Discussed with patient that we will address his breathing issues first and then constipation. Patient does have diffuse wheezing, and was given a series of breathing treatments and oral prednisone. Chest x-ray was performed showing no sign of pneumonia and no overt fluid overload. Abdominal x-ray was consistent with constipation. EKG showed a sinus rhythm with no ischemia or ectopy. Patient had a leukocytosis of 17.7, which is consistent with the margin is from using prednisone over the last few days. Troponin was mildly elevated in the indeterminate range , but consistent with patient's prior troponin readings and likely due to his end-stage renal disease. Patient also had an elevated BNP which was consistent with chronic elevation when compared to prior readings. On reevaluation patient had complete resolution of his wheezing and stated he felt completely better in terms of the respiratory effort. He still had abdominal discomfort and pressure from the constipation Was offered an enema for his constipation. Patient eventually accepted, and he had a large bowel movement. He stated he felt much better and was ready to go home. He was discharged home and is to follow-up with his doctors, including his urologist to discuss whether his constipation is making it difficult for him to urinate. Treatment Plan: [] Disposition: [] Impression: COPD exacerbation, constipation This note was generated with [employer] dictation software. It may contain incorrect words, spelling, and punctuation that were not noted in review of the chart prior to signing ED Disposition - Plan for ED Patient: Disposition: Home or Assisted Living Chief Complaint: Shortness of Breath Instructions: ED Constipation, ED COPD Flare Prescriptions: Azithromycin [Zithromax Z-Jose] 250 mg PO UD #1 box Prednisone [Deltasone] 40 mg PO DAILY #10 tab Referrals: Tania Berger, [facility] [Primary Care Provider] - 3-5 Days if not improving Additional Instructions: Please take the prednisone as prescribed for 5 days. Take the antibiotics as prescribed for the full 5 days even if you feel better before they are complete. Take your breathing treatments at home as needed for wheezing and shortness of breath. If you have any worsening of your condition or any new concerning symptoms, please return immediately to the emergency department for another evaluation.
--- NOTE | 2018-07-05 19:15 | RAD_ITS ---
STUDY: X-RAY - ABDOMEN/PELVIS REASON FOR EXAM: Male, 67 years old. Pain TECHNIQUE: Two AP supine views of the abdomen and pelvis. COMPARISON: None. FINDINGS: There is no bowel obstruction. There is a large amount of stool in the colon, consistent with constipation. The visualized osseous structures are within normal limits. RAD/Abdomen Single View (Portable) IMPRESSION: No bowel obstruction. Constipation. Electronically Signed: Mateo Alejandro, at 19:49 EDT Tel , Service support ,
[2018-07-05] MEDS: Ipratropium/Albuterol Sulfate 3 ML AMPUL.NEB INHALATION (19:20)
[2018-07-05] MEDS: Albuterol 2.5 MG/3 ML VIAL.NEB. INHALATION ×3 (19:20→19:37)
[2018-07-05 19:25] VITALS: PULSE 75; RESP 18
[2018-07-05 19:35] VITALS: BP 157/58; PULSE 66; RESP 17; O2SAT 96
[2018-07-05] MEDS: predniSONE 20 MG Tablet 60 MG PO (19:40)
[2018-07-05 19:44] VITALS: PULSE 78; RESP 18
[2018-07-05 19:55] LABS: Absolute Lymphocyte Count 2.37 X10^3/ul (0.83-4.51); Absolute Neutrophil Count 15.2 X10^3/uL (2.0-7.7); Basophil# 0.01 X10^3/uL; Basophil% 0.1 % (0-1); Eosinophil# 0.03 X10^3/uL; Eosinophils% 0.2 % (0-5); Hematocrit 40.2 % (40-54); Lymphocyte # 2.37 X10^3/ul (4.0); Lymphocyte % 13.4 % (19-41); Mean Corp Hgb Conc 32.3 g/gl (32-36); Mean Corpuscular Hgb 30.2 pg (27.0-32.0); Mean Corpuscular Volume 93.3 fL (80-94); Mean Platelet Vol. 9.9 fl (6.2-12.0); Monocyte# 0.06 X10^3/uL; Monocyte% 0.3 % (0-10); Neutrophil # 15.22 X10^3/uL (2.7-7.7); Neutrophil % 85.9 % (47-70); Platelet Count 179 K/mm3 (150-450); RBC Distribution Width CV 15.3 % (11.6-14.6); RBC Distribution Width SD 51.8 fl (35.1-43.9); Red Blood Count 4.31 M/mm3 (4.6-6.2); White Blood Count 17.7 K/mm3 (4.4-11.0)
[2018-07-05 20:05] LABS: POSITIVE COUNT NO; POSITIVE DIFFERENTIAL NO; POSITIVE MORPHOLOGY NO
--- NOTE | 2018-07-05 20:26 | NURSING ---
DR. DUARTE MADE AWARE THAT PATIENT WOULD LIKE AN ENEMA AFTER HIS RESPIRATORY ISSUES ARE ADDRESSED HE HAS BEEN UNABLE TO HAVE A BM FOR 4 DAYS.
[2018-07-05 20:35] LABS: BNP,B-Type NATRIURETIC PEPTIDE 2393.9 pg/mL (0-100)
[2018-07-05 22:56] VITALS: PULSE 66; RESP 25
--- NOTE | 2018-07-05 23:10 | ED.DEP ---
ED Disposition - Plan for ED Patient: Disposition: Home or Assisted Living Chief Complaint: Shortness of Breath Instructions: ED COPD Flare, ED Constipation Prescriptions: Azithromycin [Zithromax Z-Jose] 250 mg PO UD #1 box Prednisone [Deltasone] 40 mg PO DAILY #10 tab Referrals: Tania Berger, [facility] [Primary Care Provider] - 3-5 Days if not improving Additional Instructions: Please take the prednisone as prescribed for 5 days. Take the antibiotics as prescribed for the full 5 days even if you feel better before they are complete. Take your breathing treatments at home as needed for wheezing and shortness of breath. If you have any worsening of your condition or any new concerning symptoms, please return immediately to the emergency department for another evaluation.
[2018-07-05 23:50] VITALS: BP 145/67; PULSE 64; RESP 17; O2SAT 96
== END 2018-07-05 23:51 | disposition home or self-care (01) ==
PROVIDERS: Emergency Provider Emergency Medicine; Family Provider Nurse Practitioner Family; PCP Nurse Practitioner Family
DX: J44.1 Chronic obstructive pulmonary disease with (acute) exacerbation (principal); K59.00 Constipation, unspecified; I25.10 Atherosclerotic heart disease of native coronary artery without angina pectoris; I25.2 Old myocardial infarction; I12.0 Hypertensive chronic kidney disease with stage 5 chronic kidney disease or end stage renal disease; N18.6 End stage renal disease; Z99.2 Dependence on renal dialysis; E78.00 Pure hypercholesterolemia, unspecified; Z95.1 Presence of aortocoronary bypass graft; Z79.82 Long term (current) use of aspirin; Z79.02 Long term (current) use of antithrombotics/antiplatelets; Z79.899 Other long term (current) drug therapy; Z72.0 Tobacco use
CPT/HCPCS: 71045; 74018; 83880; 84484; 85025; 93005; 94640; 99285; A4216

== ENCOUNTER → 2018-07-11 12:52 | Outpatient (CLI) | payer MEDICARE, SELFPAY ==
--- NOTE | 2018-07-11 12:53 | CDU_ITS ---
Reason For Study: Carotid bruit Rt. Velocities/BP Lt. Velocities/BP Prox CCA 88.5/13.5 cm/sec. Prox CCA 88.6/17.5 cm/sec. Mid CCA 63.8/11.4 cm/sec. Mid CCA 116.0/18.7 cm/sec. Dist CCA 71.1/9.1 cm/sec. Dist CCA 141.0/11.8 cm/sec. Prox ICA 227.0/41.9 cm/sec. Prox ICA 221.0/40.6 cm/sec. Mid ICA 102.0/19.4 cm/sec. Mid ICA 132.0/30.8 cm/sec. Dist ICA 80.6/21.1 cm/sec. Dist ICA 123.0/22.6 cm/sec. Rt. ICA/CCA = 3.6. Lt. ICA/CCA = 1.9. Prox ECA 186.0/18.3 cm/sec. Prox ECA 141.0/5.7 cm/sec. Rt. Vert. 67.8/19.8 cm/sec. Lt. Vert. 55.8/16.5 cm/sec. Right Extracranial There is heterogeneous, irregular atherosclerotic plaque noted in the right common carotid artery. There is heterogeneous, irregular atherosclerotic plaque noted in the right internal carotid artery. There is heterogeneous, irregular atherosclerotic plaque noted in the right external carotid artery. Antegrade flow is noted in the right vertebral artery. Left Extracranial There is heterogeneous, irregular atherosclerotic plaque noted in the left common carotid artery. There is heterogeneous, irregular atherosclerotic plaque noted in the left internal carotid artery. There is heterogeneous, irregular atherosclerotic plaque noted in the left external carotid artery. Antegrade flow is noted in the left vertebral artery. Procedure Carotid Duplex 99341. Exam performed in department. 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 Moderate disease right external carotid Calcific irregular plague with shadowing at the proximal left internal carotid with >70% stenosis. Mild disease left external carotid Patent and antegrade vertebrals bilaterally Disease progression is noted bilaterally involving the internal carotid arteries since 06/02/2009. Ordering Physician: Chepe Barrientos Referring Physician: Chepe Barrientos Performed By: Cherelle Marrero RVT
== END ==
PROVIDERS: Family Provider Nurse Practitioner Family; PCP Nurse Practitioner Family; Visit Provider Internal Medicine Cardiovascular Disease
DX: R09.89 Other specified symptoms and signs involving the circulatory and respiratory systems (principal); I25.2 Old myocardial infarction
CPT/HCPCS: 93880

== ENCOUNTER 2018-07-23 14:39 | Inpatient (IN) | payer MEDICARE, SELFPAY ==
[2018-07-23] VITALS (13 sets, daily range): BP systolic 162–184; BP diastolic 63–84; PULSE 68–93; RESP 16–22; TEMP 36.4–36.7; O2SAT 89–98; BMI 26.6; BMI 28.1; BMI 28.0; BMI 28.7
--- NOTE | 2018-07-23 15:06 | EKG12_ITS ---
Test Reason : DYSRHYTHMIA Blood Pressure : / mmHG Vent. Rate : 069 BPM Atrial Rate : 069 BPM P-R Int : 194 ms QRS Dur : 104 ms QT Int : 456 ms P-R-T Axes : -27 069 125 degrees QTc Int : 488 ms Normal sinus rhythm Left ventricular hypertrophy with repolarization abnormality Prolonged QT Abnormal ECG Confirmed by VIKY MONTENEGRO, JOS ([id number]), scientific publications editor SHIRA HURD ([id number]) on 07/24/2018 2:15:52 PM Referred By: Chepe Barrientos Confirmed By:JOS SALMON MD
--- NOTE | 2018-07-23 15:06 | RAD_ITS ---
STUDY: X-RAY CHEST REASON FOR EXAM: Male, 67 years old. Increased shortness of breath worse today TECHNIQUE: Single AP portable view of the chest. COMPARISON: July 05, 2018 chest x-ray FINDINGS: There is a right side central line with the tip in the superior vena cava. Since prior study there is development of bilateral blunting of the costophrenic angle and increased interstitial markings. Sternal cerclage wires are present from a prior sternotomy. Normal mediastinum and justyn. Normal visualized pulmonary arteries. There is atherosclerotic calcification of the aortic arch with tortuosity. There are diffuse degenerative changes of the visualized thoracic spine. Normal visualized ribs, clavicles, and shoulders. There is no demonstrated abnormality of the visualized soft tissue structures of the upper abdomen. RAD/Chest 1 View (Portable) IMPRESSION: Findings are suspicious for interval development of bilateral effusions pulmonary edema. Cardiomegaly status post sternotomy. Electronically Signed: Stephanie Martínez MD at 15:42 EDT Tel , Service support ,
--- NOTE | 2018-07-23 15:09 | ED.VISSUMM ---
- ER Visit Summary Date of Service: 07/23/18 Chief Complaint: Shortness of breath History of Present Illness: The patient is a 67 M presenting with shortness of breath. He states this has been ongoing for the past 2-3 days. It is worsened with exertion and with laying flat. His last dialysis was on Tuesday. He saw his benefits assistant on Tuesday. He states they are trying to take him off dialysis. He feels that he is filling up with fluid. He has been gained 10 pounds over the last several days. He feels fluid overloaded. He states he is only making small amount of urine. He has a history of CHF, COPD, hypertension, hyperlipidemia. He is a smoker. Physical Examination: Vitals are stable. Patient is afebrile. Alert no acute distress. HEENT exam is unremarkable. Neck is supple. Lungs are wheezing diffusely bilaterally. Heart is regular rate and rhythm. Abdomen is soft nontender nondistended. Extremities symmetric edema Skin is warm and dry. No focal neurologic deficit. Remainder of exam is unremarkable. Emergency Department Course and Treatment: Patient was given albuterol, Atrovent aerosol. EKG is sinus rate of 69 with LVH. Chest x-ray shows findings suspicious for interval development of bilateral effusions and pulmonary edema. Cardiomegaly status post sternotomy. CBC shows white count 12.7, hemoglobin 10.4. Sodium 129, potassium 3.0, BUN 121, creatinine 3.11. Troponin 0.064. BNP 2929.3. On reevaluation his pulse ox is 88% on room air. He was put on nasal cannula with improvement. Discussed with nephrology and the hospitalist. Patient will be admitted. Disposition: Admission Impression: Acute on chronic kidney injury, Pulmonary edema This note was generated with [employer] dictation software. It may contain incorrect words, spelling, and punctuation that were not noted in review of the chart prior to signing ED Disposition - Plan for ED Patient: Chief Complaint: Shortness of Breath
--- NOTE | 2018-07-23 15:12 | ED.DCSUM_ITS ---
- ER Visit Summary Date of Service: 07/23/18 Chief Complaint: Shortness of breath History of Present Illness: The patient is a 67 M presenting with shortness of breath. He states this has been ongoing for the past 2-3 days. It is worsened with exertion and with laying flat. His last dialysis was on Tuesday. He saw his activity specialist on Tuesday. He states they are trying to take him off dialysis. He feels that he is filling up with fluid. He has been gained 10 pounds over the last several days. He feels fluid overloaded. He states he is only making small amount of urine. He has a history of CHF, COPD, hypertension, hyperlipidemia. He is a smoker. Physical Examination: Vitals are stable. Patient is afebrile. Alert no acute distress. HEENT exam is unremarkable. Neck is supple. Lungs are wheezing diffusely bilaterally. Heart is regular rate and rhythm. Abdomen is soft nontender nondistended. Extremities symmetric edema Skin is warm and dry. No focal neurologic deficit. Remainder of exam is unremarkable. Emergency Department Course and Treatment: Patient was given albuterol, Atrovent aerosol. EKG is sinus rate of 69 with LVH. Chest x-ray shows findings suspicious for interval development of bilateral effusions and pulmonary edema. Cardiomegaly status post sternotomy. CBC shows white count 12.7, hemoglobin 10.4. Sodium 129, potassium 3.0, BUN 121, creatinine 3.11. Troponin 0.064. BNP 2929.3. On reevaluation his pulse ox is 88% on room air. He was put on nasal cannula with improvement. Discussed with nephrology and the hospitalist. Patient will be admitted. Disposition: Admission Impression: Acute on chronic kidney injury, Pulmonary edema This note was generated with [employer] dictation software. It may contain incorrect words, spelling, and punctuation that were not noted in review of the chart prior to signing ED Disposition - Plan for ED Patient: Chief Complaint: Shortness of Breath
[2018-07-23 15:29] LABS: Absolute Lymphocyte Count 1.18 X10^3/ul (0.83-4.51); Basophil# 0.02 X10^3/uL; Basophil% 0.2 % (0-1); Eosinophils% 0.8 % (0-5); Hematocrit 31.4 % (40-54); Hemoglobin 10.4 g/dl (13.0-16.5); Lymphocyte # 1.18 X10^3/ul (4.0); Lymphocyte % 9.3 % (19-41); Mean Corp Hgb Conc 33.1 g/gl (32-36); Mean Corpuscular Hgb 30.4 pg (27.0-32.0); Mean Corpuscular Volume 91.8 fL (80-94); Monocyte# 1.35 X10^3/uL; Monocyte% 10.7 % (0-10); Neutrophil % 78.8 % (47-70); POSITIVE COUNT NO; POSITIVE DIFFERENTIAL NO; POSITIVE MORPHOLOGY NO; Platelet Count 167 K/mm3 (150-450); RBC Distribution Width CV 15.1 % (11.6-14.6); RBC Distribution Width SD 50.6 fl (35.1-43.9); Red Blood Count 3.42 M/mm3 (4.6-6.2); White Blood Count 12.7 K/mm3 (4.4-11.0)
[2018-07-23] MEDS: Ipratropium/Albuterol Sulfate 3 ML AMPUL.NEB INHALATION (15:35)
[2018-07-23] MEDS: Albuterol 2.5 MG/3 ML VIAL.NEB. INHALATION ×4 (15:35→22:55)
[2018-07-23 15:58] LABS: Anion Gap 14 (5-15); BUN 121 mg/dL (7-18); BUN/Creat Ratio 38.9 RATIO (10-20); Calcium,Total 8.7 mg/dL (8.5-10.1); Chloride 91 mmol/L (98-107); Creatinine, Serum 3.11 mg/dL (0.70-1.30); EST Glomerular Filtration Rate 21 mL/min (>60); Est Glom Filt Rate - Afr Amer 26 mL/min (>60); Glucose 101 mg/dL (74-106); Sodium Level 129 mmol/L (136-145)
--- NOTE | 2018-07-23 16:09 | ED.RN ---
bun [address] called from the lab. dr silva aware
--- NOTE | 2018-07-23 16:46 | PCM.HP.STD ---
<Itz Bennett - Last Filed: 07/23/18 16:46> Problem List (1) Diastolic CHF Status: Acute (2) Acute respiratory failure with hypoxia Status: Acute (3) DAI (acute kidney injury) Status: Acute (4) HLD (hyperlipidemia) Status: Chronic (5) HTN (hypertension) Status: Chronic (6) PAD (peripheral artery disease) Status: Chronic (7) COPD (chronic obstructive pulmonary disease) Status: Chronic (8) Tobacco dependence Status: Chronic (9) CKD (chronic kidney disease) Status: Chronic (10) BPH (benign prostatic hyperplasia) Status: Chronic History of Present Illness Date of Admission: 07/23/18 Chief Complaint: SOB The patient is a 67 year old M with a hx of CKDIV-V, recently attempted to be weaned off dialysis per Dr. Alaniz (last session 2 hour last Tuesday), also with a hx of diastolic CHF EF 50%, CAD, prior cabg and stents, prior VA, HLD, HTN, PAD, carotid artery stenosis with plan for carotid endoarterectomy with Dr. Lua, known BPH with plans for radiation therapy, who presents to the ER with increased SOB and edema. He believes he has gained about 13 pounds in the last two days. He states last week his legs were thina with no edema, and now they are severely swollen. He is SOB at rest, with exertion, and has orthopnea and PND. No chest pain/heaviness/tightness. Some mild abdominal distention. Pt is agreeable to further dialysis. Pt still smokes but wants to quit and requests a patch. He complains of difficulty emptying his bladder and does have significant BPH. He also complains of chronic constipation however last bm was yesterday. [] Past Medical History Past Medical History (Chronic Problems): Chronic Problems (Last Reviewed 06/29/18 @ 11:14 by Enedina Garcia) History of non-ST elevation myocardial infarction (NSTEMI) (Chronic 01/21/11) History of left heart catheterization (Chronic 01/21/11) 10/13/[address] Barrientos @ [facility]:Per Dr. Jiménez @ [facility]: CABG recommended History of right and left heart catheterization (Chronic 05/24/18) Patent NICHOLAS to LAD, SVG to 1st OM and SVG to RCA. Elevated right heart pressures, significant Diastolic dysfunction per cath done @ [facility], Dr. Barrientos Stented coronary artery (Chronic) 2003, JASON to circumflex ; 10/13/2009 tsfer from [facility] to [facility], total of 5 bare metal stents to RCA per Dr. Barrientos @ [facility]: 3.5 X 18 Glove Machine Operator, followed distally by 3.0 X12 Glove Machine Operator to distal RCA;3.5 X 15 Glove Machine Operator, followed proximally by 4.0 X 18 Glove Machine Operator to Mid RCA; 4.0 X 18 Glove Machine Operator to Proximal RCA S/P CABG x 3 (Chronic 01/26/11) [facility] per Dr. Osito Hernandez: NICHOLAS to LAD, reverse SVG to OMbranch of CX, reverse SVG to PDA of RCA. PDA endarterectomy. Status post peripheral artery angioplasty with insertion of stent (Chronic ~2010) Right common iliac, [facility] Atherosclerotic heart disease of quechan coronary artery without angina pectoris (Chronic) 2003, JASON to circumflex ; 10/10/2009 tsfer from [facility] to [facility], total of 5 bare metal stents to RCA; CABG X 3 vessels @ [facility] 01/31/2011 (critical left main and restenosis of RCA stents) HLD (hyperlipidemia) (Chronic) HTN (hypertension) (Chronic) PAD (peripheral artery disease) (Chronic) COPD (chronic obstructive pulmonary disease) (Chronic) Tobacco dependence (Chronic) CKD (chronic kidney disease) (Chronic) Leukocytosis (Chronic) Anemia (Chronic) BPH (benign prostatic hyperplasia) (Chronic) Medical History: Medical History (Last Reviewed 06/29/18 @ 11:14 by Enedina Garcia) History of non-ST elevation myocardial infarction (NSTEMI) (Chronic) Onset Date: 01/21/11 I25.2 Atherosclerotic heart disease of quechan coronary artery without angina pectoris (Chronic) I25.10 2003, JASON to circumflex ; 10/10/2009 tsfer from [facility] to [facility], total of 5 bare metal stents to RCA; CABG X 3 vessels @ [facility] 01/31/2011 (critical left main and restenosis of RCA stents) Acute renal failure superimposed on chronic kidney disease (Acute) N17.9, N18.9 Diastolic CHF (Acute) I50.30 HLD (hyperlipidemia) (Chronic) E78.5 HTN (hypertension) (Chronic) I10 PAD (peripheral artery disease) (Chronic) I73.9 COPD (chronic obstructive pulmonary disease) (Chronic) J44.9 Tobacco dependence (Chronic) F17.200 CKD (chronic kidney disease) (Chronic) N18.9 Leukocytosis (Chronic) D72.829 Anemia (Chronic) D64.9 BPH (benign prostatic hyperplasia) (Chronic) N40.0 Allergies irbesartan [From Avapro] Adverse Reaction (Severe, Verified 07/23/18 14:43) Blisters zolpidem [From Ambien] Adverse Reaction (Severe, Verified 07/23/18 14:43) made me go crazy, memory loss Home Medications: Ambulatory Orders Medication Instructions Recorded Ropinirole HCl [Requip] 1 mg PO QHS 01/28/18 Rosuvastatin Calcium [Crestor] 40 mg PO QHS 01/28/18 Finasteride [Proscar] 5 mg PO DAILY 04/08/18 Albuterol Aerosols [Ventolin 2.5 mg INHALATION Q4H PRN 05/10/18 Aerosols] Amlodipine [Norvasc] 10 mg PO DAILY 05/10/18 Carvedilol [Coreg (Beta Kadi)] 25 mg PO BID #60 tab 05/13/18 Aspirin E.C. [Ecotrin] 81 mg PO DAILY@0800 tab 05/25/18 Clopidogrel Bisulfate [Plavix] 75 mg PO DAILY #1 tab 05/25/18 Isosorbide Mononitrate [Imdur] 30 mg PO DAILY #30 tab 05/26/18 bumetanide 2 mg tablet 2 mg PO BID tab 06/29/18 potassium chloride ER 10 mEq 10 meq PO .COMPLEX 06/29/18 tablet,extended release Metolazone [Zaroxolyn] 1 tab PO DAILY PRN 07/05/18 Lactulose 15 ml PO DAILY 07/23/18 Surgical History: Surgical History (Last Reviewed 06/29/18 @ 11:14 by Enedina Garcia) History of left heart catheterization (Chronic) Onset Date: 01/21/11 Z98.890 10/13/[address] Barrientos @ [facility]:Per Dr. Jiménez @ [facility]: CABG recommended S/P dialysis catheter insertion (Acute) Onset Date: 05/22/18 Z95.828, Z99.2 Right internal jugular access per Dr. Demian Lua History of right and left heart catheterization (Chronic) Onset Date: 05/24/18 Z98.890 Patent NICHOLAS to LAD, SVG to 1st OM and SVG to RCA. Elevated right heart pressures, significant Diastolic dysfunction per cath done @ [facility], Dr. Barrientos History of thoracentesis (Acute) Onset Date: 05/22/18 Z98.890 1700 cc removed from right side Stented coronary artery (Chronic) Z95.5 2004, JASON to circumflex ; 10/13/2009 tsfer from [facility] to [facility], total of 5 bare metal stents to RCA per Dr. Barrientos @ [facility]: 3.5 X 18 Glove Machine Operator, followed distally by 3.0 X12 Glove Machine Operator to distal RCA;3.5 X 15 Glove Machine Operator, followed proximally by 4.0 X 18 Glove Machine Operator to Mid RCA; 4.0 X 18 Glove Machine Operator to Proximal RCA S/P CABG x 3 (Chronic) Onset Date: 01/26/[address] [facility] per Dr. Osito Rivasline: NICHOLAS to LAD, reverse SVG to OMbranch of CX, reverse SVG to PDA of RCA. PDA endarterectomy. Surgical History: coronary bypass surgery, tonsillectomy Psychiatric History: No pertinent psych hx Lives: Spouse/ Significant Other Smoking Status: Light Smoker (<10/day) Tobacco Use: Cigarettes Alcohol: Occasional - 1-2 beers per day Drugs: None - *Family History Maternal Family History: Family History (Last Reviewed 06/29/18 @ 11:14 by Enedina Garcia) Other CAD (coronary artery disease) CVA (cerebral vascular accident) Cancer Hypertension History Items: Heart Disease Paternal Family History: Family History (Last Reviewed 06/29/18 @ 11:14 by Enedina Garcia) Other CAD (coronary artery disease) CVA (cerebral vascular accident) Cancer Hypertension History Items: Heart Disease Review of Systems Constitutional: Denies: Chills, Fever, Weight Change HEENT: Denies: Head Aches, Sinus Congestion, Sinus Drainage Cardiovascular: Reports: Orthopnea, Paroxysmal Noc. Dyspnea. Denies: Chest Pain, Chest Pressure, Chest Tightness, Heaviness, Light Headedness, Palpitations, Syncope Respiratory: Reports: Shortness of Breath, Shortness of breath at rest, Shortness of breath upon exertion, Wheezing. Denies: Cough, Sputum production Gastrointestinal: Denies: Abdominal Pain, Nausea, Vomiting Genitourinary: Denies: Dysuria Musculoskeletal: Denies: Joint Pain, Joint Tenderness Skin: Denies: Rash, Wounds Neurological: Denies: Numbness, Tingling, Focal weakness Psychiatric: Denies: Anxiety, Depression, Homicidal Ideations, Suicidal Ideations Hematologic/ Lymphatic: Denies: Easy Bruising, Easy Bleeding VTE Information - Inpt Only VTE Present on Admission: No VTE Mechan Device Prophylaxis: SCD's VTE Pharm Prophylaxis ordered?: Yes Patient Problems: Active and Suspected Problems (Last Reviewed 06/29/18 @ 11:14 by Enedina Garcia) DAI (acute kidney injury) (Acute) - Physical Exam General: Alert, Oriented x3, Cooperative HEENT: Atraumatic, PERRLA, EOMI, Normocephalic Neck: Supple, No JVD, Negative Carotid Bruits Lungs: Wheezes Cardiovascular: Regular rate, No murmurs Abdomen: Bowel Sounds Present, Soft, Non Tender, Distended - mild, - - ventral hernia, large. Extremities: Capillary Refill Less than 3 Seconds, Edema - 3+ pitting edema BLE up to knees Skin: No rashes, No breakdown Musculoskeletal: No Tenderness to Palpation of Joints or Extremities Neurological: Cranial nerves II-XII grossly intact Psych/Mental Status: Normal Affect, Appropriate, Alert and oriented to time, place, person, mood and affect Vital Signs Temp Pulse Resp BP Pulse Ox 97.8 F 71 19 H 170/70 H 93 07/23/18 14:39 07/23/18 16:05 07/23/18 16:05 07/23/18 16:05 07/23/18 16:30 Oxygen Flow Rate (L/min) 4 Oxygen Delivery Method Nasal Cannula Weight: 185 lb 6.54 oz Body Mass Index (BMI) 28.1 Finger Stick Blood Glucose 200 Laboratory Tests Past 24 Hrs 07/23/18 07/23/18 07/23/18 15:15 15:15 15:15 WBC 12.7 H RBC 3.42 L Hgb 10.4 L Hct 31.4 L MCV 91.8 MCH 30.4 MCHC 33.1 RDW 15.1 H RDW Differential 50.6 H Plt Count 167 MPV 10.0 Immature Gran % (Auto) 0.200 Neut % (Auto) 78.8 H Lymph % (Auto) 9.3 L O'Brien % (Auto) 10.7 H Eos % (Auto) 0.8 Baso % (Auto) 0.2 Absolute Neuts (auto) 10.0 H Absolute Lymphs (auto) 1.18 Total Counted Not Reportable Sodium 129 L Potassium 3.0 L Chloride 91 L Carbon Dioxide 24.0 Anion Gap 14 BUN 121 H* Creatinine 3.11 H Estim Creat Clear Calc 22.60 Est GFR (MDRD) Af Amer 26 L Est GFR (MDRD) Non-Af 21 L BUN/Creatinine Ratio 38.9 H Glucose 101 Calcium 8.7 Troponin I 0.064 H B-Natriuretic Peptide 2929.3 H Assessment/Plan All Active Problems (Last Reviewed 06/29/18 @ 11:14 by Enedina Garcia) DAI (acute kidney injury) (Acute) S/P dialysis catheter insertion (Acute 05/22/18) History of thoracentesis (Acute 05/22/18) Acute renal failure superimposed on chronic kidney disease (Acute) Acute respiratory failure with hypoxia (Acute) Diastolic CHF (Acute) 1. Acute hypoxic respiratory failure 2/2 acute diastolic CHF exacerbation - last EF 50% this year. Severe SOB, wheezing, edema, BNP elevation, CXR c/w volume overload, 13 lb weight gain. Likely 2/2 discontinuation of dialysis. Bumex and metolazone not effective. Possibly component of BPH. Start IV lasix, consult nephro for possible dialysis needs, add HEATHER wraps to legs, provide sodium and fluid restriction, monitor I/O's, check post void bladder scan. No HEATHER-I 2/2 renal failure. -Indeterminate troponin likely 2/2 CHF and renal failure. Cycle. Maintain on tele. NO chest pain. -currently requiring 4 lpm to maintain good o2 sats, and lately has not been on home O2 although he does have the equipment at home. 2. DAI on CKDIV/V - increased creatinine, renal consulted as above. Last dialysis this past Tuesday. Replace potassium, suspect hypervolemic hyponatremia 2/2 volume overload, possibly 2/2 metolazone however pt is not diuresing. 3. CAD - prior CABG/Stents/VA - continue other home meds - coreg, asa, statin, plavix, imdur 4. BPH - follows Daisy, plans for radiation therapy. Continue Proscar/Flomax and get bladder scan 5. Hx CVA - asa/statin/plavix 6. HTN - elevated, monitor with diuresis, prn hydralazine 7. Chronic constipation - continue prn lactulose 8. Carotid stenosis - o/p follow up with Dr. Lua for surgery 9. Ventral hernia - no acute issues DVT ppx: heparin This patient was seen by Itz Bennett PA-C under the supervision of Doctor Lincoln. <Chris Stark - Last Filed: 07/23/18 17:30> Problem List (1) DAI (acute kidney injury) Status: Acute (2) Acute respiratory failure with hypoxia Status: Acute (3) Diastolic CHF Status: Acute Qualifiers: Heart failure chronicity: acute Qualified Code(s): I50.31 - Acute diastolic (congestive) heart failure History of Present Illness Chief Complaint: shortness of breath. weight gain. edema. The patient is a 67 year old M presents with increasing shortness of breath weight gain since July 17. On July 17 patient had what was to be his last dialysis and only had 2 hours at that time. Plan was for him to be watched. However during that time patient has had the aforementioned symptoms. Presents to the emergency room and diagnosed with heart failure. Chest x-ray consistent with pulmonary edema BNP was 2929. This is similar to the patient's previous heart failure exacerbations. Patient received aerosols in the emergency room. Dr. Ogden, of nephrology, was contacted and advised admitting the patient and the plan is for dialysis. Patient still does have his vascular catheter in place. [] Past Medical History Medical History: Medical History (Last Reviewed 07/23/18 @ 17:20 by Chris Stark DO) History of non-ST elevation myocardial infarction (NSTEMI) (Chronic) Onset Date: 01/21/11 I25.2 Atherosclerotic heart disease of quechan coronary artery without angina pectoris (Chronic) I25.10 2003, JASON to circumflex ; 10/10/2009 tsfer from [facility] to [facility], total of 5 bare metal stents to RCA; CABG X 3 vessels @ [facility] 01/31/2011 (critical left main and restenosis of RCA stents) Acute renal failure superimposed on chronic kidney disease (Acute) N17.9, N18.9 Diastolic CHF (Acute) I50.30 HLD (hyperlipidemia) (Chronic) E78.5 HTN (hypertension) (Chronic) I10 PAD (peripheral artery disease) (Chronic) I73.9 COPD (chronic obstructive pulmonary disease) (Chronic) J44.9 Tobacco dependence (Chronic) F17.200 CKD (chronic kidney disease) (Chronic) N18.9 Leukocytosis (Chronic) D72.829 Anemia (Chronic) D64.9 BPH (benign prostatic hyperplasia) (Chronic) N40.0 Allergies irbesartan [From Avapro] Adverse Reaction (Severe, Verified 07/23/18 14:43) Blisters zolpidem [From Ambien] Adverse Reaction (Severe, Verified 07/23/18 14:43) made me go crazy, memory loss Surgical History: Surgical History (Last Reviewed 07/23/18 @ 17:20 by Chris Stark DO) History of left heart catheterization (Chronic) Onset Date: 01/21/11 Z98.890 10/13/[address] Barrientos @ [facility]:Per Dr. Jiménez @ [facility]: CABG recommended S/P dialysis catheter insertion (Acute) Onset Date: 05/22/18 Z95.828, Z99.2 Right internal jugular access per Dr. Demian Lua History of right and left heart catheterization (Chronic) Onset Date: 05/24/18 Z98.890 Patent NICHOLAS to LAD, SVG to 1st OM and SVG to RCA. Elevated right heart pressures, significant Diastolic dysfunction per cath done @ [facility], Dr. Barrientos History of thoracentesis (Acute) Onset Date: 05/22/18 Z98.890 1700 cc removed from right side Stented coronary artery (Chronic) Z95.5 2003, JASON to circumflex ; 10/13/2009 tsfer from [facility] to [facility], total of 5 bare metal stents to RCA per Dr. Barrientos @ [facility]: 3.5 X 18 Glove Machine Operator, followed distally by 3.0 X12 Glove Machine Operator to distal RCA;3.5 X 15 Glove Machine Operator, followed proximally by 4.0 X 18 Glove Machine Operator to Mid RCA; 4.0 X 18 Glove Machine Operator to Proximal RCA S/P CABG x 3 (Chronic) Onset Date: 01/26/[address] [facility] per Dr. Osito Hernandez: NICHOLAS to LAD, reverse SVG to OMbranch of CX, reverse SVG to PDA of RCA. PDA endarterectomy. Surgical History: coronary bypass surgery, tonsillectomy Psychiatric History: No pertinent psych hx Lives: Spouse/ Significant Other Smoking Status: Light Smoker (<10/day) Tobacco Use: Cigarettes Alcohol: Occasional Drugs: None - *Family History Maternal Family History: Family History (Last Reviewed 07/23/18 @ 17:20 by Chris Stark DO) Other CAD (coronary artery disease) CVA (cerebral vascular accident) Cancer Hypertension Paternal Family History: Family History (Last Reviewed 07/23/18 @ 17:20 by Chris Stark DO) Other CAD (coronary artery disease) CVA (cerebral vascular accident) Cancer Hypertension Review of Systems Constitutional: Denies: Chills, Fever, Weight Change HEENT: Denies: Head Aches, Sinus Congestion, Sinus Drainage Cardiovascular: Reports: Orthopnea, Paroxysmal Noc. Dyspnea. Denies: Chest Pain, Chest Pressure, Chest Tightness, Heaviness, Light Headedness, Palpitations, Syncope Respiratory: Reports: Shortness of Breath, Shortness of breath at rest, Shortness of breath upon exertion, Wheezing. Denies: Cough, Sputum production Gastrointestinal: Denies: Abdominal Pain, Nausea, Vomiting Genitourinary: Denies: Dysuria Musculoskeletal: Denies: Joint Pain, Joint Tenderness Skin: Denies: Rash, Wounds Neurological: Denies: Focal weakness, Numbness, Tingling Psychiatric: Denies: Anxiety, Depression, Homicidal Ideations, Suicidal Ideations Hematologic/ Lymphatic: Denies: Easy Bruising, Easy Bleeding Comment: All review of systems are negative except as mentioned in the history of present illness and the other review of systems. VTE Information - Inpt Only VTE Present on Admission: No VTE Mechan Device Prophylaxis: SCD's VTE Pharm Prophylaxis ordered?: Yes - Physical Exam General: Alert, Cooperative, No apparent distress HEENT: Atraumatic, Normocephalic Oral: Moist Mucosa, No Gingival or Mucosal Lesions/ Ulcerations Neck: No Nodes, Thyroid Normal Size and Texture, - - Cystic structure on the posterior aspect of his right neck. No fluctuance. No erythema. No tenderness. Lungs: Diminished, Wheezes Cardiovascular: Regular rate, Regular Rhythm, Normal S1, Normal S2 Abdomen: Bowel Sounds Present, Soft, Non Tender, Non-Distended, Distended, - Extremities: Capillary Refill Less than 3 Seconds, Edema Skin: No rashes, No breakdown, - - Noted telangiectasias on his skin Musculoskeletal: No Tenderness to Palpation of Joints or Extremities, No Muscle Wasting Neurological: Cranial nerves II-XII grossly intact, Sensory exam intact to light touch and pain, Coordination normal, Gait narrow based and stable Psych/Mental Status: Normal Affect, Appropriate Vital Signs Temp Pulse Resp BP Pulse Ox 36.6 C 72 19 H 170/70 H 93 07/23/18 14:39 07/23/18 17:12 07/23/18 16:05 07/23/18 16:05 07/23/18 16:30 Oxygen Flow Rate (L/min) 4 Oxygen Delivery Method Nasal Cannula Weight: 84.1 kg Body Mass Index (BMI) 28.1 Finger Stick Blood Glucose 200 Laboratory Tests Past 24 Hrs 07/23/18 07/23/18 07/23/18 15:15 15:15 15:15 WBC 12.7 H RBC 3.42 L Hgb 10.4 L Hct 31.4 L MCV 91.8 MCH 30.4 MCHC 33.1 RDW 15.1 H RDW Differential 50.6 H Plt Count 167 MPV 10.0 Immature Gran % (Auto) 0.200 Neut % (Auto) 78.8 H Lymph % (Auto) 9.3 L O'Brien % (Auto) 10.7 H Eos % (Auto) 0.8 Baso % (Auto) 0.2 Absolute Neuts (auto) 10.0 H Absolute Lymphs (auto) 1.18 Total Counted Not Reportable Sodium 129 L Potassium 3.0 L Chloride 91 L Carbon Dioxide 24.0 Anion Gap 14 BUN 121 H* Creatinine 3.11 H Estim Creat Clear Calc 22.60 Est GFR (MDRD) Af Amer 26 L Est GFR (MDRD) Non-Af 21 L BUN/Creatinine Ratio 38.9 H Glucose 101 Calcium 8.7 Troponin I 0.064 H B-Natriuretic Peptide 2929.3 H EKG showed normal sinus rhythm with LVH. Chest x-ray reviewed and showed pulmonary edema. No evidence of any infiltrate. Assessment/Plan Patient seen and examined independently. Data reviewed. I agree with the above note by the physician news production assistant. 1. Acute hypoxic respiratory failure Secondary to pulmonary edema. Need to treat the underlying pulmonary edema. Patient given Lasix and the plan is for dialysis as well. 2. Acute heart failure with preserved ejection fraction EF previously at 55% echocardiogram on April 08, 2018 Continue with Lasix but will change her to IV Lasix for now. Most patient's symptoms are due to the fact that he is advanced kidney disease and as well and the plan is also for dialysis which I think will help with fluid removal. Will continue with the patient's carvedilol as he was already on that previously. Continue with his isosorbide. Continue with Zaroxolyn Patient not a candidate for an HEATHER inhibitor nor angiotensin receptor kadi given his kidney disease 3. Acute kidney injury Creatinine up to 3.11. Baseline appears to be around 2.55 Continue to monitor while he is here. 4. Elevated troponin Patient recently underwent a cardiac catheterization on May 24 that showed patent grafts at that time. Troponin may be elevated due to the acute strain of his heart failure but also it may given his kidney disease 5. BPH he is endorsing that with urinary retention and dribbling Continue with finasteride. Patient also states that he is on Flomax which is not on his home medication reconciliation Start the Flomax. Check a postvoid residual to see if the catheter may need to be placed Follow-up with urology as outpatient 6. DVT prophylaxis with heparin. 7. Neck cyst versus lipoma Patient will need follow-up with surgery for definitive management. It has been present for a long time and is unchanged, according to the patient. 8. Ventral hernia Not incarcerated and asymptomatic at this time. Patient may follow-up with general surgery on an outpatient basis for definitive management. Code Visit Inpatient E&M: [id number] Init Hosp L3
--- NOTE | 2018-07-23 17:02 | HP.PCM_ITS ---
<Itz Bennett - Last Filed: 07/23/18 16:46> Problem List (1) Diastolic CHF Status: Acute (2) Acute respiratory failure with hypoxia Status: Acute (3) DAI (acute kidney injury) Status: Acute (4) HLD (hyperlipidemia) Status: Chronic (5) HTN (hypertension) Status: Chronic (6) PAD (peripheral artery disease) Status: Chronic (7) COPD (chronic obstructive pulmonary disease) Status: Chronic (8) Tobacco dependence Status: Chronic (9) CKD (chronic kidney disease) Status: Chronic (10) BPH (benign prostatic hyperplasia) Status: Chronic History of Present Illness Date of Admission: 07/23/18 Chief Complaint: SOB The patient is a 67 year old M with a hx of CKDIV-V, recently attempted to be weaned off dialysis per Dr. Alaniz (last session 2 hour last Tuesday), also with a hx of diastolic CHF EF 50%, CAD, prior cabg and stents, prior ME, HLD, HTN, PAD, carotid artery stenosis with plan for carotid endoarterectomy with Dr. Lua, known BPH with plans for radiation therapy, who presents to the ER with increased SOB and edema. He believes he has gained about 13 pounds in the last two days. He states last week his legs were thina with no edema, and now they are severely swollen. He is SOB at rest, with exertion, and has orthopnea and PND. No chest pain/heaviness/tightness. Some mild abdominal distention. Pt is agreeable to further dialysis. Pt still smokes but wants to quit and requests a patch. He complains of difficulty emptying his bladder and does have significant BPH. He also complains of chronic constipation however last bm was yesterday. [] Past Medical History Past Medical History (Chronic Problems): Chronic Problems (Last Reviewed 06/29/18 @ 11:14 by Enedina Garcia) History of non-ST elevation myocardial infarction (NSTEMI) (Chronic 01/21/11) History of left heart catheterization (Chronic 01/21/11) 10/13/[address] Barrientos @ [facility]:Per Dr. Jiménez @ [facility]: CABG recommended History of right and left heart catheterization (Chronic 05/24/18) Patent NICHOLAS to LAD, SVG to 1st OM and SVG to RCA. Elevated right heart pressures, significant Diastolic dysfunction per cath done @ [facility], Dr. Barrientos Stented coronary artery (Chronic) 2003, JASON to circumflex ; 10/13/2009 tsfer from [facility] to [facility], total of 5 bare metal stents to RCA per Dr. 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 Osito Hernandez: INCHOLAS to LAD, reverse SVG to OMbranch of CX, reverse SVG to PDA of RCA. PDA endarterectomy. Status post peripheral artery angioplasty with insertion of stent (Chronic ~2010) Right common iliac, [facility] Atherosclerotic heart disease of [place] coronary artery without angina pectoris (Chronic) 2003, JASON to circumflex ; 10/10/2009 tsfer from [facility] to [facility], total of 5 bare metal stents to RCA; CABG X [address] [facility] 01/31/2011 (critical left main and restenosis of RCA stents) HLD (hyperlipidemia) (Chronic) HTN (hypertension) (Chronic) PAD (peripheral artery disease) (Chronic) COPD (chronic obstructive pulmonary disease) (Chronic) Tobacco dependence (Chronic) CKD (chronic kidney disease) (Chronic) Leukocytosis (Chronic) Anemia (Chronic) BPH (benign prostatic hyperplasia) (Chronic) Medical History: Medical History (Last Reviewed 06/29/18 @ 11:14 by Enedina Garcia) History of non-ST elevation myocardial infarction (NSTEMI) (Chronic) Onset Date: 01/21/11 I25.2 Atherosclerotic heart disease of [place] coronary artery without angina pectoris (Chronic) I25.10 2003, JASON to circumflex ; 10/10/2009 tsfer from [facility] to [facility], total of 5 bare metal stents to RCA; CABG X [address] [facility] 01/31/2011 (critical left main and restenosis of RCA stents) Acute renal failure superimposed on chronic kidney disease (Acute) N17.9, N18.9 Diastolic CHF (Acute) I50.30 HLD (hyperlipidemia) (Chronic) E78.5 HTN (hypertension) (Chronic) I10 PAD (peripheral artery disease) (Chronic) I73.9 COPD (chronic obstructive pulmonary disease) (Chronic) J44.9 Tobacco dependence (Chronic) F17.200 CKD (chronic kidney disease) (Chronic) N18.9 Leukocytosis (Chronic) D72.829 Anemia (Chronic) D64.9 BPH (benign prostatic hyperplasia) (Chronic) N40.0 Allergies irbesartan [From Avapro] Adverse Reaction (Severe, Verified 07/23/18 14:43) Blisters zolpidem [From Ambien] Adverse Reaction (Severe, Verified 07/23/18 14:43) made me go crazy, memory loss Home Medications: Ambulatory Orders Medication Instructions Recorded Ropinirole HCl [Requip] 1 mg PO QHS 01/28/18 Rosuvastatin Calcium [Crestor] 40 mg PO QHS 01/28/18 Finasteride [Proscar] 5 mg PO DAILY 04/08/18 Albuterol Aerosols [Ventolin 2.5 mg INHALATION Q4H PRN 05/10/18 Aerosols] Amlodipine [Norvasc] 10 mg PO DAILY 05/10/18 Carvedilol [Coreg (Beta Kadi)] 25 mg PO BID #60 tab 05/13/18 Aspirin E.C. [Ecotrin] 81 mg PO DAILY@0800 tab 05/25/18 Clopidogrel Bisulfate [Plavix] 75 mg PO DAILY #1 tab 05/25/18 Isosorbide Mononitrate [Imdur] 30 mg PO DAILY #30 tab 05/26/18 bumetanide 2 mg tablet 2 mg PO BID tab 06/29/18 potassium chloride ER 10 mEq 10 meq PO .COMPLEX 06/29/18 tablet,extended release Metolazone [Zaroxolyn] 1 tab PO DAILY PRN 07/05/18 Lactulose 15 ml PO DAILY 07/23/18 Surgical History: Surgical History (Last Reviewed 06/29/18 @ 11:14 by Enedina Garcia) History of left heart catheterization (Chronic) Onset Date: 01/21/11 Z98.890 10/13/[address] Barrientos @ [facility]:Per Dr. Jiménez @ [facility]: CABG recommended S/P dialysis catheter insertion (Acute) Onset Date: 05/22/18 Z95.828, Z99.2 Right internal jugular access per Dr. Demian Lua History of right and left heart catheterization (Chronic) Onset Date: 05/24/18 Z98.890 Patent NICHOLAS to LAD, SVG to 1st OM and SVG to RCA. Elevated right heart pressures, significant Diastolic dysfunction per cath done @ [facility], Dr. Barrientos History of thoracentesis (Acute) Onset Date: 05/22/18 Z98.890 1700 cc removed from right side Stented coronary artery (Chronic) Z95.5 2004, JASON to circumflex ; 10/13/2009 tsfer from [facility] to [facility], total of 5 bare metal stents to RCA per Dr. Barrientos @ [facility]: 3.5 X 18 [employer], followed distally by 3.0 X12 High School [employer] Instructor to distal RCA;3.5 X 15 High School Music Instructor, followed proximally by 4.0 X 18 High School Music Instructor to Mid RCA; 4.0 X 18 High School Music Instructor to Proximal RCA S/P CABG x 3 (Chronic) Onset Date: 01/26/11 Z95.1 [facility] per Dr. Osito Rivasline: NICHOLAS to LAD, reverse SVG to OMbranch of CX, reverse SVG to PDA of RCA. PDA endarterectomy. Surgical History: coronary bypass surgery, tonsillectomy Psychiatric History: No pertinent psych hx Lives: Spouse/ Significant Other Smoking Status: Light Smoker (<10/day) Tobacco Use: Cigarettes Alcohol: Occasional - 1-2 beers per day Drugs: None - *Family History Maternal Family History: Family History (Last Reviewed 06/29/18 @ 11:14 by Enedina Garcia) Other CAD (coronary artery disease) CVA (cerebral vascular accident) Cancer Hypertension History Items: Heart Disease Paternal Family History: Family History (Last Reviewed 06/29/18 @ 11:14 by Enedina Garcia) Other CAD (coronary artery disease) CVA (cerebral vascular accident) Cancer Hypertension History Items: Heart Disease Review of Systems Constitutional: Denies: Chills, Fever, Weight Change HEENT: Denies: Head Aches, Sinus Congestion, Sinus Drainage Cardiovascular: Reports: Orthopnea, Paroxysmal Noc. Dyspnea. Denies: Chest Pain, Chest Pressure, Chest Tightness, Heaviness, Light Headedness, Palpitations, Syncope Respiratory: Reports: Shortness of Breath, Shortness of breath at rest, Shortness of breath upon exertion, Wheezing. Denies: Cough, Sputum production Gastrointestinal: Denies: Abdominal Pain, Nausea, Vomiting Genitourinary: Denies: Dysuria Musculoskeletal: Denies: Joint Pain, Joint Tenderness Skin: Denies: Rash, Wounds Neurological: Denies: Numbness, Tingling, Focal weakness Psychiatric: Denies: Anxiety, Depression, Homicidal Ideations, Suicidal Ideations Hematologic/ Lymphatic: Denies: Easy Bruising, Easy Bleeding VTE Information - Inpt Only VTE Present on Admission: No VTE Mechan Device Prophylaxis: SCD's VTE Pharm Prophylaxis ordered?: Yes Patient Problems: Active and Suspected Problems (Last Reviewed 06/29/18 @ 11:14 by Enedina Garcia) DAI (acute kidney injury) (Acute) - Physical Exam General: Alert, Oriented x3, Cooperative HEENT: Atraumatic, PERRLA, EOMI, Normocephalic Neck: Supple, No JVD, Negative Carotid Bruits Lungs: Wheezes Cardiovascular: Regular rate, No murmurs Abdomen: Bowel Sounds Present, Soft, Non Tender, Distended - mild, - - ventral hernia, large. Extremities: Capillary Refill Less than 3 Seconds, Edema - 3+ pitting edema BLE up to knees Skin: No rashes, No breakdown Musculoskeletal: No Tenderness to Palpation of Joints or Extremities Neurological: Cranial nerves II-XII grossly intact Psych/Mental Status: Normal Affect, Appropriate, Alert and oriented to time, place, person, mood and affect Vital Signs Temp Pulse Resp BP Pulse Ox 97.8 F 71 19 H 170/70 H 93 07/23/18 14:39 07/23/18 16:05 07/23/18 16:05 07/23/18 16:05 07/23/18 16:30 Oxygen Flow Rate (L/min) 4 Oxygen Delivery Method Nasal Cannula Weight: 185 lb 6.54 oz Body Mass Index (BMI) 28.1 Finger Stick Blood Glucose 200 Laboratory Tests Past 24 Hrs 07/23/18 07/23/18 07/23/18 15:15 15:15 15:15 WBC 12.7 H RBC 3.42 L Hgb 10.4 L Hct 31.4 L MCV 91.8 MCH 30.4 MCHC 33.1 RDW 15.1 H RDW Differential 50.6 H Plt Count 167 MPV 10.0 Immature Gran % (Auto) 0.200 Neut % (Auto) 78.8 H Lymph % (Auto) 9.3 L [place] % (Auto) 10.7 H Eos % (Auto) 0.8 Baso % (Auto) 0.2 Absolute Neuts (auto) 10.0 H Absolute Lymphs (auto) 1.18 Total Counted Not Reportable Sodium 129 L Potassium 3.0 L Chloride 91 L Carbon Dioxide 24.0 Anion Gap 14 BUN 121 H* Creatinine 3.11 H Estim Creat Clear Calc 22.60 Est GFR (MDRD) Af Amer 26 L Est GFR (MDRD) Non-Af 21 L BUN/Creatinine Ratio 38.9 H Glucose 101 Calcium 8.7 Troponin I 0.064 H B-Natriuretic Peptide 2929.3 H Assessment/Plan All Active Problems (Last Reviewed 06/29/18 @ 11:14 by Enedina Garcia) DAI (acute kidney injury) (Acute) S/P dialysis catheter insertion (Acute 05/22/18) History of thoracentesis (Acute 05/22/18) Acute renal failure superimposed on chronic kidney disease (Acute) Acute respiratory failure with hypoxia (Acute) Diastolic CHF (Acute) 1. Acute hypoxic respiratory failure 2/2 acute diastolic CHF exacerbation - last EF 50% this year. Severe SOB, wheezing, edema, BNP elevation, CXR c/w volume overload, 13 lb weight gain. Likely 2/2 discontinuation of dialysis. Bumex and metolazone not effective. Possibly component of BPH. Start IV lasix, consult nephro for possible dialysis needs, add HEATHER wraps to legs, provide sodium and fluid restriction, monitor I/O's, check post void bladder scan. No HEATHER-I 2/2 renal failure. -Indeterminate troponin likely 2/2 CHF and renal failure. Cycle. Maintain on tele. NO chest pain. -currently requiring 4 lpm to maintain good o2 sats, and lately has not been on home O2 although he does have the equipment at home. 2. DAI on CKDIV/V - increased creatinine, renal consulted as above. Last dialysis this past Tuesday. Replace potassium, suspect hypervolemic hyponatremia 2/2 volume overload, possibly 2/2 metolazone however pt is not diuresing. 3. CAD - prior CABG/Stents/ME - continue other home meds - coreg, asa, statin, plavix, imdur 4. BPH - follows Daisy, plans for radiation therapy. Continue Proscar/Flomax and get bladder scan 5. Hx CVA - asa/statin/plavix 6. HTN - elevated, monitor with diuresis, prn hydralazine 7. Chronic constipation - continue prn lactulose 8. Carotid stenosis - o/p follow up with Dr. Lua for surgery 9. Ventral hernia - no acute issues DVT ppx: heparin This patient was seen by Itz Bennett PA-C under the supervision of Doctor Lincoln. <Chris Stark - Last Filed: 07/23/18 17:30> Problem List (1) DAI (acute kidney injury) Status: Acute (2) Acute respiratory failure with hypoxia Status: Acute (3) Diastolic CHF Status: Acute Qualifiers: Heart failure chronicity: acute Qualified Code(s): I50.31 - Acute diastolic (congestive) heart failure History of Present Illness Chief Complaint: shortness of breath. weight gain. edema. The patient is a 67 year old M presents with increasing shortness of breath weight gain since July 17. On July 17 patient had what was to be his last dialysis and only had 2 hours at that time. Plan was for him to be watched. However during that time patient has had the aforementioned symptoms. Presents to the emergency room and diagnosed with heart failure. Chest x-ray consistent with pulmonary edema BNP was 2929. This is similar to the patient's previous heart failure exacerbations. Patient received aerosols in the emergency room. Dr. Ogden, of nephrology, was contacted and advised admitting the patient and the plan is for dialysis. Patient still does have his vascular catheter in place. [] Past Medical History Medical History: Medical History (Last Reviewed 07/23/18 @ 17:20 by Chris Stark DO) History of non-ST elevation myocardial infarction (NSTEMI) (Chronic) Onset Date: 01/21/11 I25.2 Atherosclerotic heart disease of [place] coronary artery without angina pectoris (Chronic) I25.10 2003, JASON to circumflex ; 10/10/2009 tsfer from [facility] to [facility], total of 5 bare metal stents to RCA; CABG X [address] [facility] 01/31/2011 (critical left main and restenosis of RCA stents) Acute renal failure superimposed on chronic kidney disease (Acute) N17.9, N18.9 Diastolic CHF (Acute) I50.30 HLD (hyperlipidemia) (Chronic) E78.5 HTN (hypertension) (Chronic) I10 PAD (peripheral artery disease) (Chronic) I73.9 COPD (chronic obstructive pulmonary disease) (Chronic) J44.9 Tobacco dependence (Chronic) F17.200 CKD (chronic kidney disease) (Chronic) N18.9 Leukocytosis (Chronic) D72.829 Anemia (Chronic) D64.9 BPH (benign prostatic hyperplasia) (Chronic) N40.0 Allergies irbesartan [From Avapro] Adverse Reaction (Severe, Verified 07/23/18 14:43) Blisters zolpidem [From Ambien] Adverse Reaction (Severe, Verified 07/23/18 14:43) made me go crazy, memory loss Surgical History: Surgical History (Last Reviewed 07/23/18 @ 17:20 by Chris Stark DO) History of left heart catheterization (Chronic) Onset Date: 01/21/11 Z98.890 10/13/[address] Barrientos @ [facility]:Per Dr. Jiménez @ [facility]: CABG recommended S/P dialysis catheter insertion (Acute) Onset Date: 05/22/18 Z95.828, Z99.2 Right internal jugular access per Dr. Demian Lua History of right and left heart catheterization (Chronic) Onset Date: 05/24/18 Z98.890 Patent NICHOLAS to LAD, SVG to 1st OM and SVG to RCA. Elevated right heart pressures, significant Diastolic dysfunction per cath done @ [facility], Dr. Barrientos History of thoracentesis (Acute) Onset Date: 05/22/18 Z98.890 1700 cc removed from right side Stented coronary artery (Chronic) Z95.5 2003, JASON to circumflex ; 10/13/2009 tsfer from [facility] to [facility], total of 5 bare metal stents to RCA per Dr. Barrientos @ [facility]: 3.5 X 18 [employer] Music In[employer], followed distally by 3.0 X12 High School Music Instructor to distal RCA;3.5 X 15 High School Music Instructor, followed proximally by 4.0 X 18 High School Music Instructor to Mid RCA; 4.0 X 18 High School Music Instructor to Proximal RCA S/P CABG x 3 (Chronic) Onset Date: 01/26/11 Z95.1 [facility] per Dr. Osito Hernandez: NICHOLAS to LAD, reverse SVG to OMbranch of CX, reverse SVG to PDA of RCA. PDA endarterectomy. Surgical History: coronary bypass surgery, tonsillectomy Psychiatric History: No pertinent psych hx Lives: Spouse/ Significant Other Smoking Status: Light Smoker (<10/day) Tobacco Use: Cigarettes Alcohol: Occasional Drugs: None - *Family History Maternal Family History: Family History (Last Reviewed 07/23/18 @ 17:20 by Chris Stark DO) Other CAD (coronary artery disease) CVA (cerebral vascular accident) Cancer Hypertension Paternal Family History: Family History (Last Reviewed 07/23/18 @ 17:20 by Chris Stark DO) Other CAD (coronary artery disease) CVA (cerebral vascular accident) Cancer Hypertension Review of Systems Constitutional: Denies: Chills, Fever, Weight Change HEENT: Denies: Head Aches, Sinus Congestion, Sinus Drainage Cardiovascular: Reports: Orthopnea, Paroxysmal Noc. Dyspnea. Denies: Chest Pain, Chest Pressure, Chest Tightness, Heaviness, Light Headedness, Palpitations, Syncope Respiratory: Reports: Shortness of Breath, Shortness of breath at rest, Shortness of breath upon exertion, Wheezing. Denies: Cough, Sputum production Gastrointestinal: Denies: Abdominal Pain, Nausea, Vomiting Genitourinary: Denies: Dysuria Musculoskeletal: Denies: Joint Pain, Joint Tenderness Skin: Denies: Rash, Wounds Neurological: Denies: Focal weakness, Numbness, Tingling Psychiatric: Denies: Anxiety, Depression, Homicidal Ideations, Suicidal Ideations Hematologic/ Lymphatic: Denies: Easy Bruising, Easy Bleeding Comment: All review of systems are negative except as mentioned in the history of present illness and the other review of systems. VTE Information - Inpt Only VTE Present on Admission: No VTE Mechan Device Prophylaxis: SCD's VTE Pharm Prophylaxis ordered?: Yes - Physical Exam General: Alert, Cooperative, No apparent distress HEENT: Atraumatic, Normocephalic Oral: Moist Mucosa, No Gingival or Mucosal Lesions/ Ulcerations Neck: No Nodes, Thyroid Normal Size and Texture, - - Cystic structure on the posterior aspect of his right neck. No fluctuance. No erythema. No tenderness. Lungs: Diminished, Wheezes Cardiovascular: Regular rate, Regular Rhythm, Normal S1, Normal S2 Abdomen: Bowel Sounds Present, Soft, Non Tender, Non-Distended, Distended, - Extremities: Capillary Refill Less than 3 Seconds, Edema Skin: No rashes, No breakdown, - - Noted telangiectasias on his skin Musculoskeletal: No Tenderness to Palpation of Joints or Extremities, No Muscle Wasting Neurological: Cranial nerves II-XII grossly intact, Sensory exam intact to light touch and pain, Coordination normal, Gait narrow based and stable Psych/Mental Status: Normal Affect, Appropriate Vital Signs Temp Pulse Resp BP Pulse Ox 36.6 C 72 19 H 170/70 H 93 07/23/18 14:39 07/23/18 17:12 07/23/18 16:05 07/23/18 16:05 07/23/18 16:30 Oxygen Flow Rate (L/min) 4 Oxygen Delivery Method Nasal Cannula Weight: 84.1 kg Body Mass Index (BMI) 28.1 Finger Stick Blood Glucose 200 Laboratory Tests Past 24 Hrs 07/23/18 07/23/18 07/23/18 15:15 15:15 15:15 WBC 12.7 H RBC 3.42 L Hgb 10.4 L Hct 31.4 L MCV 91.8 MCH 30.4 MCHC 33.1 RDW 15.1 H RDW Differential 50.6 H Plt Count 167 MPV 10.0 Immature Gran % (Auto) 0.200 Neut % (Auto) 78.8 H Lymph % (Auto) 9.3 L [place] % (Auto) 10.7 H Eos % (Auto) 0.8 Baso % (Auto) 0.2 Absolute Neuts (auto) 10.0 H Absolute Lymphs (auto) 1.18 Total Counted Not Reportable Sodium 129 L Potassium 3.0 L Chloride 91 L Carbon Dioxide 24.0 Anion Gap 14 BUN 121 H* Creatinine 3.11 H Estim Creat Clear Calc 22.60 Est GFR (MDRD) Af Amer 26 L Est GFR (MDRD) Non-Af 21 L BUN/Creatinine Ratio 38.9 H Glucose 101 Calcium 8.7 Troponin I 0.064 H B-Natriuretic Peptide 2929.3 H EKG showed normal sinus rhythm with LVH. Chest x-ray reviewed and showed pulmonary edema. No evidence of any infiltrate. Assessment/Plan Patient seen and examined independently. Data reviewed. I agree with the above note by the physician golf player assistant. 1. Acute hypoxic respiratory failure * Secondary to pulmonary edema. * Need to treat the underlying pulmonary edema. Patient given Lasix and the plan is for dialysis as well. 2. Acute heart failure with preserved ejection fraction * EF previously at 55% echocardiogram on April 08, 2018 * Continue with Lasix but will change her to IV Lasix for now. * Most patient's symptoms are due to the fact that he is advanced kidney disease and as well and the plan is also for dialysis which I think will help with fluid removal. * Will continue with the patient's carvedilol as he was already on that previously. Continue with his isosorbide. * Continue with Zaroxolyn * Patient not a candidate for an HEATHER inhibitor nor angiotensin receptor kadi given his kidney disease 3. Acute kidney injury * Creatinine up to 3.11. Baseline appears to be around 2.55 * Continue to monitor while he is here. 4. Elevated troponin * Patient recently underwent a cardiac catheterization on May 24 that showed patent grafts at that time. * Troponin may be elevated due to the acute strain of his heart failure but also it may given his kidney disease 5. BPH * he is endorsing that with urinary retention and dribbling * Continue with finasteride. Patient also states that he is on Flomax which is not on his home medication reconciliation * Start the Flomax. * Check a postvoid residual to see if the catheter may need to be placed * Follow-up with urology as outpatient 6. DVT prophylaxis with heparin. 7. Neck cyst versus lipoma * Patient will need follow-up with surgery for definitive management. It has been present for a long time and is unchanged, according to the patient. 8. Ventral hernia * Not incarcerated and asymptomatic at this time. * Patient may follow-up with general surgery on an outpatient basis for definitive management. Code Visit Inpatient E&M: 71001 Init Hosp L3
[2018-07-23] MEDS: Furosemide 40 MG/4 ML Vial IV (17:33)
[2018-07-23] MEDS: LORazepam 1 MG Tablet PO (20:15)
[2018-07-23] MEDS: Pramipexole Di-HCl 0.5 MG Tablet PO (22:21)
[2018-07-23] MEDS: Atorvastatin Calcium 80 MG Tablet PO (22:21)
[2018-07-23] MEDS: Carvedilol 25 MG Tablet PO (22:21)
[2018-07-23] MEDS: Heparin Injection (Vial) 5,000 UNIT/ML VIAL 5000 UNIT SC (22:22)
[2018-07-23] MEDS: Nepro Liquid 120 ML LIQUID PO (22:25)
[2018-07-23 23:49] LABS: Anion Gap 12 (5-15); BUN 61 mg/dL (7-18); BUN/Creat Ratio 25.6 RATIO (10-20); Calcium,Total 8.6 mg/dL (8.5-10.1); Chloride 96 mmol/L (98-107); Creatinine, Serum 2.38 mg/dL (0.70-1.30); EST Glomerular Filtration Rate 29 mL/min (>60); Est Glom Filt Rate - Afr Amer 35 mL/min (>60); Estimated Creatinine Clearance 29.54 ml/min; Glucose 155 mg/dL (74-106); Potassium 3.8 mmol/L (3.5-5.1); Sodium Level 133 mmol/L (136-145)
[2018-07-24] VITALS (17 sets, daily range): BP systolic 126–150; BP diastolic 45–69; PULSE 56–87; RESP 16–26; TEMP 36.6–39.1; O2SAT 93–98
[2018-07-24 03:10] LABS: Allen Test POS; Base Excess 3 mmol/L (-2 to +2); Bicarbonate 26.6 mmol/L (22-26); Blood Gas Specimen Type ART; O2 Delivery Device Nasal Can; PO2 65 mmHG (75-100); SITE L Radial; SO2 94 % (95-99); Time Given 257; Total Carbon Dioxide 28 mmol/L; pCO2 35.4 mmHg (35-45); pH 7.49 (7.35-7.45)
[2018-07-24] MEDS: Albuterol 2.5 MG/3 ML VIAL.NEB. INHALATION ×2 (03:20→07:12)
[2018-07-24] MEDS: Acetaminophen 325 MG Tablet 650 MG PO ×2 (03:52→21:39)
[2018-07-24] MEDS: MethylPREDNISolone 125 MG/2 ML Vial IV (04:16)
[2018-07-24] MEDS: 0.9% NaCl Peripheral Flush Adult/Peds IV ×3 (04:16→12:54)
[2018-07-24] MEDS: Furosemide 100 MG/10 ML Vial 80 MG IV (04:16)
[2018-07-24 04:32] LABS: Absolute Lymphocyte Count 1.08 X10^3/ul (0.83-4.51); Absolute Neutrophil Count 14.7 X10^3/uL (2.0-7.7); Basophil# 0.03 X10^3/uL; Basophil% 0.2 % (0-1); Eosinophil# 0.05 X10^3/uL; Eosinophils% 0.3 % (0-5); Hemoglobin 10.6 g/dl (13.0-16.5); Lymphocyte # 1.08 X10^3/ul (4.0); Lymphocyte % 6.4 % (19-41); Mean Corp Hgb Conc 33.1 g/gl (32-36); Mean Corpuscular Hgb 31.1 pg (27.0-32.0); Mean Corpuscular Volume 93.8 fL (80-94); Mean Platelet Vol. 10.5 fl (6.2-12.0); Monocyte# 1.05 X10^3/uL; Monocyte% 6.2 % (0-10); Neutrophil # 14.68 X10^3/uL (2.7-7.7); Neutrophil % 86.6 % (47-70); Platelet Count 199 K/mm3 (150-450); RBC Distribution Width CV 15.1 % (11.6-14.6); RBC Distribution Width SD 48.9 fl (35.1-43.9); Red Blood Count 3.41 M/mm3 (4.6-6.2); White Blood Count 16.9 K/mm3 (4.4-11.0)
[2018-07-24 04:42] LABS: POSITIVE COUNT NO; POSITIVE DIFFERENTIAL NO; POSITIVE MORPHOLOGY NO
[2018-07-24 04:49] LABS: Anion Gap 12 (5-15); BUN 71 mg/dL (7-18); BUN/Creat Ratio 25.4 RATIO (10-20); Calcium,Total 8.3 mg/dL (8.5-10.1); Chloride 98 mmol/L (98-107); EST Glomerular Filtration Rate 24 mL/min (>60); Est Glom Filt Rate - Afr Amer 29 mL/min (>60); Estimated Creatinine Clearance 25.11 ml/min; Glucose 151 mg/dL (74-106); Potassium 3.7 mmol/L (3.5-5.1); Sodium Level 135 mmol/L (136-145)
[2018-07-24 04:52] LABS: Lactic Acid 0.5 mmol/L (0.4-2.0)
--- NOTE | 2018-07-24 08:13 | RAD_ITS ---
STUDY: X-RAY CHEST REASON FOR EXAM: Male, 67 years old. Shortness of breath. TECHNIQUE: AP upright and lateral views. COMPARISON: 07/23/2018. FINDINGS: Double lumen right IJ approach catheter tips remain in the SVC. Pulmonary hyperinflation with flattening of the hemidiaphragms are suggestive of COPD. There is focal consolidation in the right posterior lung base. Clearing of bilateral pleural fluid. Mild cardiomegaly is unchanged. Normal mediastinum and justyn. Improvement of pulmonary vascular congestion. Mild atherosclerotic calcification of the left aortic knob is unchanged. Anterior and lateral marginal spurring of the thoracic spine. Normal visualized ribs, clavicles, and shoulders. There is no demonstrated abnormality of the visualized soft tissue structures of the upper abdomen. RAD/Chest PA and Lateral IMPRESSION: 1. Right posterior lung base pneumonia, new when compared to 07/23/2018. 2. Clearing of mild pulmonary vascular congestion and bilateral pleural fluid. Electronically Signed: Jaya Bailon MD at 9:22 EDT , Service support ,
--- NOTE | 2018-07-24 08:53 | PCM.CONS.C ---
Problem List (1) History of non-ST elevation myocardial infarction (NSTEMI) Status: Chronic (2) History of left heart catheterization Status: Chronic Comment: 10/13/[address] Barrientos @ [facility]:Per Dr. Jiménez @ [facility]: CABG recommended (3) History of right and left heart catheterization Status: Chronic Comment: Patent NICHOLAS to LAD, SVG to 1st OM and SVG to RCA. Elevated right heart pressures, significant Diastolic dysfunction per cath done @ [facility], Dr. Barrientos (4) Stented coronary artery Status: Chronic Comment: 2003, JASON to circumflex ; 10/13/2009 tsfer from [facility] to [facility], total of 5 bare metal stents to RCA per Dr. Barrientos @ [facility]: 3.5 X 18 Hr Operations Advisor, followed distally by 3.0 X12 Hr Operations Advisor to distal RCA;3.5 X 15 Hr Operations Advisor, followed proximally by 4.0 X 18 Hr Operations Advisor to Mid RCA; 4.0 X 18 Hr Operations Advisor to Proximal RCA (5) S/P CABG x 3 Status: Chronic Comment: [facility] per Dr. Osito Hernandez: NICHOLAS to LAD, reverse SVG to OMbranch of CX, reverse SVG to PDA of RCA. PDA endarterectomy. (6) Diastolic CHF Status: Acute Qualifiers: Heart failure chronicity: acute Qualified Code(s): I50.31 - Acute diastolic (congestive) heart failure (7) HLD (hyperlipidemia) Status: Chronic Qualifiers: (8) HTN (hypertension) Status: Chronic Qualifiers: (9) PAD (peripheral artery disease) Status: Chronic (10) Tobacco dependence Status: Chronic Reason for Consult Date of Consultation: 07/24/18 Reason for Consultation: Congestive heart failure, coronary artery disease, hypertension, tobacco abuse, hyperlipidemia, chronic kidney insufficiency History of Present Illness: YENNI FORREST, is a 67 M who well known to me, and recently was seen in the office for hospital follow-up, after he was admitted several weeks ago for acute on chronic kidney disease and congestive heart failure. Patient is a history of tobacco abuse, hypertension, hypercholesterolemia, coronary artery disease status post angioplasty and stenting by myself at [facility] many years ago followed by multivessel bypass surgery. Patient has also been struggling with chronic renal insufficiency superimposed on BPH and was supposed to have a prostate procedure by Dr. Villa. However, the patient develop worsening CHF on top of renal failure and was admitted to [facility] in the beginning of May 2018. The patient underwent right-sided thoracentesis as well as IV diuresis with worsening renal failure. He also underwent repeat left and right heart catheterization at [facility] at that time which demonstrated severe three-vessel coronary disease and widely patent grafts, as well as moderate pulmonary hypertension with pulmonary pressures in the mid 50s. The patient temporarily required hemodialysis via a right subclavian catheter, and was doing much better while on dialysis with respect to fluid management. Unfortunately he continues to smoke a few cigarettes per day. Apparently the patient was was being weaned off hemodialysis, and progressively developed worsening heart failure and fluid accumulation. He denies any chest pain or anginal symptoms he was taking and tolerating his medicines well. [] Past Medical History Allergies/Adverse Reactions: Allergies irbesartan [From Avapro] Adverse Reaction (Severe, Verified 07/23/18 14:43) Blisters zolpidem [From Ambien] Adverse Reaction (Severe, Verified 07/23/18 14:43) made me go crazy, memory loss Home Medications: Ambulatory Orders Medication Instructions Recorded Ropinirole HCl [Requip] 1 mg PO QHS 01/28/18 Rosuvastatin Calcium [Crestor] 40 mg PO QHS 01/28/18 Finasteride [Proscar] 5 mg PO DAILY 04/08/18 Albuterol Aerosols [Ventolin 2.5 mg INHALATION Q4H PRN 05/10/18 Aerosols] Amlodipine [Norvasc] 10 mg PO DAILY 05/10/18 Carvedilol [Coreg (Beta Kadi)] 25 mg PO BID #60 tab 05/13/18 Aspirin E.C. [Ecotrin] 81 mg PO DAILY@0800 tab 05/25/18 Clopidogrel Bisulfate [Plavix] 75 mg PO DAILY #1 tab 05/25/18 Isosorbide Mononitrate [Imdur] 30 mg PO DAILY #30 tab 05/26/18 bumetanide 2 mg tablet 2 mg PO BID tab 06/29/18 potassium chloride ER 10 mEq 10 meq PO DAILY 06/29/18 tablet,extended release Metolazone [Zaroxolyn] 1 tab PO DAILY PRN 07/05/18 Lactulose 15 ml PO DAILY PRN 07/23/18 Potassium Chloride 10 meq PO DAILY PRN 07/23/18 Potassium Chloride [Klor-Con] 20 meq PO QHS 07/23/18 Past Medical History (Chronic Problems): Chronic Problems (Last Reviewed 07/23/18 @ 17:20 by Chris Stark DO) History of non-ST elevation myocardial infarction (NSTEMI) (Chronic 01/21/11) History of left heart catheterization (Chronic 01/21/11) 10/13/[address] Barrientos @ [facility]:Per Dr. Jiménez @ [facility]: CABG recommended History of right and left heart catheterization (Chronic 05/24/18) Patent NICHOLAS to LAD, SVG to 1st OM and SVG to RCA. Elevated right heart pressures, significant Diastolic dysfunction per cath done @ [facility], Dr. Barrientos Stented coronary artery (Chronic) 2003, JASON to circumflex ; 10/13/2009 tsfer from [facility] to [facility], total of 5 bare metal stents to RCA per Dr. Barrientos @ [facility]: 3.5 X 18 Hr Operations Advisor, followed distally by 3.0 X12 Hr Operations Advisor to distal RCA;3.5 X 15 Hr Operations Advisor, followed proximally by 4.0 X 18 Hr Operations Advisor to Mid RCA; 4.0 X 18 Hr Operations Advisor to Proximal RCA S/P CABG x 3 (Chronic 01/26/11) [facility] per Dr. Osito Hernandez: NICHOLAS to LAD, reverse SVG to OMbranch of CX, reverse SVG to PDA of RCA. PDA endarterectomy. Status post peripheral artery angioplasty with insertion of stent (Chronic ~2010) Right common iliac, [facility] Atherosclerotic heart disease of [place] coronary artery without angina pectoris (Chronic) 2003, JASON to circumflex ; 10/10/2009 tsfer from [facility] to [facility], total of 5 bare metal stents to RCA; CABG X [address] [facility] 01/31/2011 (critical left main and restenosis of RCA stents) HLD (hyperlipidemia) (Chronic) HTN (hypertension) (Chronic) PAD (peripheral artery disease) (Chronic) COPD (chronic obstructive pulmonary disease) (Chronic) Tobacco dependence (Chronic) CKD (chronic kidney disease) (Chronic) Leukocytosis (Chronic) Anemia (Chronic) BPH (benign prostatic hyperplasia) (Chronic) Surgical History: coronary bypass surgery, tonsillectomy Psychiatric History: No pertinent psych hx - *Family History Maternal Family History: Family History (Last Reviewed 07/23/18 @ 17:20 by Chris Stark DO) Other CAD (coronary artery disease) CVA (cerebral vascular accident) Cancer Hypertension History Items: Heart Disease Paternal Family History: Family History (Last Reviewed 07/23/18 @ 17:20 by Chris Stark DO) Other CAD (coronary artery disease) CVA (cerebral vascular accident) Cancer Hypertension History Items: Heart Disease Lives: Spouse/ Significant Other Smoking Status: Light Smoker (<10/day) Tobacco Use: Cigarettes Alcohol: Occasional Drugs: None Review of Systems - Review of Systems General: Denies: Fever, Night Sweats, Fatigue Cardiovascular: Denies: Chest Discomfort, Shortness of Breath, Orthopnea, PND, Peripheral Edema, Palpitations, Lightheadedness, Dizziness, Near Syncope, Syncope Respiratory: Denies: Cough, Sputum Production, Hemoptysis Gastrointestinal: Denies: Hematemesis, Hematochezia, Melena Genitourinary: Denies: Dysuria, Hematuria Skin: Denies: Rash Subjectve: Patient laying in bed, awake, alert, on BiPAP, no acute distress. Objective: Vital Signs Temp Pulse Resp BP Pulse Ox 98.2 F 60 20 H 128/49 H 94 07/24/18 08:07 07/24/18 08:07 07/24/18 08:07 07/24/18 08:07 07/24/18 08:07 Oxygen Flow Rate (L/min) 4 Oxygen Delivery Method Nasal Cannula Weight: 182 lb 5.156 oz Body Mass Index (BMI) 28.7 Finger Stick Blood Glucose 200 Intake and Output for Last 24 Hours 07/22/18 07/23/18 07/24/18 23:59 23:59 23:59 Intake Total 240 / 240 120 / 120 Output Total 3500 / 3500 Balance -3260 / -3260 120 / 120 General: Awake, Alert, Oriented x 3 HEENT: PERRL, EOMI, Sclera Non Icteric Neck: Supple, Good ROM, No Lymph Node Enlargement Lungs: Clear to auscultation Cardiovascular: Regular Rhythm, Normal S1, Normal S2, No Murmurs, No Rubs, No Gallops Vascular: No Carotid Bruits, Normal Femoral Pulses, Normal Radial Pulses, Normal Dorsalis Pedal Pulse, Normal Posterior Tibial Pulses Abdomen: Bowel Sounds Present, Soft, Non Tender, No HSM, No Organomegaly Extremities: No Cyanosis, No Clubbing, Bilateral Edema +2 Neurological: No Focal Motor or Sensory Deficit 07/23/18 15:15: WBC 12.7 H, RBC 3.42 L, Hgb 10.4 L, Hct 31.4 L, MCV 91.8, MCH 30.4, MCHC 33.1, RDW 15.1 H, RDW Differential 50.6 H, Plt Count 167, MPV 10.0, Immature Gran % (Auto) 0.200, Neut % (Auto) 78.8 H, Lymph % (Auto) 9.3 L, Bradford % (Auto) 10.7 H, Eos % (Auto) 0.8, Baso % (Auto) 0.2, Absolute Neuts (auto) 10.0 H, Total Counted Not Reportable 07/23/18 15:15: Sodium 129 L, Potassium 3.0 L, Chloride 91 L, Carbon Dioxide 24.0, Anion Gap 14, BUN 121 H*, Creatinine 3.11 H, Est GFR (MDRD) Af Amer 26 L, Est GFR (MDRD) Non-Af 21 L, BUN/Creatinine Ratio 38.9 H, Glucose 101, Calcium 8.7, Troponin I 0.064 H 07/23/18 15:15: B-Natriuretic Peptide 2929.3 H 07/23/18 18:17: Troponin I 0.062 H 07/23/18 21:27: Troponin I 0.092 H 07/23/18 23:24: Sodium 133 L, Potassium 3.8, Chloride 96 L, Carbon Dioxide 25.0, Anion Gap 12, BUN 61 H, Creatinine 2.38 H, Est GFR (MDRD) Af Amer 35 L, Est GFR (MDRD) Non-Af 29 L, BUN/Creatinine Ratio 25.6 H, Glucose 155 H, Calcium 8.6 07/24/18 03:04: pH 7.49 H, Bicarbonate Actual 26.6 H, POC Total CO2 28, Base Excess 3 H, O2 Saturation 94 L, ABG pCO2 35.4, ABG pO2 65 L, Clay Test POS 07/24/18 04:10: Sodium 135 L, Potassium 3.7, Chloride 98, Carbon Dioxide 25.0, Anion Gap 12, BUN 71 H, Creatinine 2.80 H, Est GFR (MDRD) Af Amer 29 L, Est GFR (MDRD) Non-Af 24 L, BUN/Creatinine Ratio 25.4 H, Glucose 151 H, Calcium 8.3 L 07/24/18 04:10: WBC 16.9 H, RBC 3.41 L, Hgb 10.6 L, Hct 32.0 L, MCV 93.8, MCH 31.1, MCHC 33.1, RDW 15.1 H, RDW Differential 48.9 H, Plt Count 199, MPV 10.5, Immature Gran % (Auto) 0.300, Neut % (Auto) 86.6 H, Lymph % (Auto) 6.4 L, Bradford % (Auto) 6.2, Eos % (Auto) 0.3, Baso % (Auto) 0.2, Absolute Neuts (auto) 14.7 H, Total Counted Not Reportable 07/24/18 04:10: Lactic Acid 0.5 Rhythm: EKG: ECHO: Stress Test: Cardiac Cath: PCI: CT Surgery: Holter monitor: EPS: PPM: CXR: Chest CT Scan: Assessment/Plan 1. Ischemic cardiomyopathy: Patient recently underwent left and right heart catheterization which demonstrated moderate pulmonary hypertension superimposed on severe three-vessel coronary artery disease with widely patent grafts. Would not recommend any additional cardiac evaluation at this time. Would not recommend repeat echocardiogram or catheterization. It appears the patient's fluid management status requires him to have continual and ongoing future hemodialysis. Would recommend consideration for AV fistula placement with Dr. Lua sooner rather than later in order to maintain fluid management. Recommend continuing IV diuresis with IV Lasix, and continue antihypertensive therapies as outlined in the MRF. With this diastolic dysfunction, there is no question that his hypertension and fluid overload induces and precipitate congestive heart failure given his pulmonary hypertension. Patient felt much better from a pulmonary standpoint while undergoing regular hemodialysis. 2. Hyperlipidemia: Continue statin based medications. 3. Peripheral vascular disease: The patient will require AV fistula placement if agreeable by renal. In addition he will require apparently carotid endarterectomy in the near future. 4. BPH: Patient was to undergo a prostate surgery by Dr. Villa prior to his last admission, and patient may benefit from urological consultation and correction of his BPH if still indicated. 5. Thank you very much for the opportunity to participate in the cardiac care of your patient. Consultation took place between 8 AM and 8:30 AM. Code Visit Inpatient E&M: 26511 Init Hosp L2
--- NOTE | 2018-07-24 08:58 | CON.PCM_ITS ---
Problem List (1) History of non-ST elevation myocardial infarction (NSTEMI) Status: Chronic (2) History of left heart catheterization Status: Chronic Comment: 10/13/[address] Barrientos @ [facility]:Per Dr. Jiménez @ [facility]: CABG recommended (3) History of right and left heart catheterization Status: Chronic Comment: Patent NICHOLAS to LAD, SVG to 1st OM and SVG to RCA. Elevated right heart pressures, significant Diastolic dysfunction per cath done @ [facility], Dr. Barrientos (4) Stented coronary artery Status: Chronic Comment: 2003, JASON to circumflex ; 10/13/2009 tsfer from [facility] to [facility], total of 5 bare metal stents to RCA per Dr. Barrientos @ [facility]: 3.5 X 18 Pediatric Social Worker, followed distally by 3.0 X12 Pediatric Social Worker to distal RCA;3.5 X 15 Pediatric Social Worker, followed proximally by 4.0 X 18 Pediatric Social Worker to Mid RCA; 4.0 X 18 Pediatric Social Worker to Proximal RCA (5) S/P CABG x 3 Status: Chronic Comment: [facility] per Dr. Osito Hernandez: NICHOLAS to LAD, reverse SVG to OMbranch of CX, reverse SVG to PDA of RCA. PDA endarterectomy. (6) Diastolic CHF Status: Acute Qualifiers: Heart failure chronicity: acute Qualified Code(s): I50.31 - Acute diastolic (congestive) heart failure (7) HLD (hyperlipidemia) Status: Chronic Qualifiers: (8) HTN (hypertension) Status: Chronic Qualifiers: (9) PAD (peripheral artery disease) Status: Chronic (10) Tobacco dependence Status: Chronic Reason for Consult Date of Consultation: 07/24/18 Reason for Consultation: Congestive heart failure, coronary artery disease, hypertension, tobacco abuse, hyperlipidemia, chronic kidney insufficiency History of Present Illness: YENNI FORREST, is a 67 M who well known to me, and recently was seen in the [facility] for hospital follow-up, after he was admitted several weeks ago for acute on chronic kidney disease and congestive heart failure. Patient is a history of tobacco abuse, hypertension, hypercholesterolemia, coronary artery disease status post angioplasty and stenting by myself at [facility] many years ago followed by multivessel bypass surgery. Patient has also been struggling with chronic renal insufficiency superimposed on BPH and was supposed to have a prostate procedure by Dr. Villa. However, the patient develop worsening CHF on top of renal failure and was admitted to [facility] in the beginning of May 2018. The patient underwent right-sided thoracentesis as well as IV diuresis with worsening renal failure. He also underwent repeat left and right heart catheterization at [facility] at that time which demonstrated severe three-vessel coronary disease and widely patent grafts, as well as moderate pulmonary hypertension with pulmonary pressures in the mid 50s. The patient temporarily required hemodialysis via a right subclavian catheter, and was doing much better while on dialysis with respect to fluid management. Unfortunately he continues to smoke a few cigarettes per day. Apparently the patient was was being weaned off hemodialysis, and progressively developed worsening heart failure and fluid accumulation. He denies any chest pain or anginal symptoms he was taking and tolerating his medicines well. [] Past Medical History Allergies/Adverse Reactions: Allergies irbesartan [From Avapro] Adverse Reaction (Severe, Verified 07/23/18 14:43) Blisters zolpidem [From Ambien] Adverse Reaction (Severe, Verified 07/23/18 14:43) made me go crazy, memory loss Home Medications: Ambulatory Orders Medication Instructions Recorded Ropinirole HCl [Requip] 1 mg PO QHS 01/28/18 Rosuvastatin Calcium [Crestor] 40 mg PO QHS 01/28/18 Finasteride [Proscar] 5 mg PO DAILY 04/08/18 Albuterol Aerosols [Ventolin 2.5 mg INHALATION Q4H PRN 05/10/18 Aerosols] Amlodipine [Norvasc] 10 mg PO DAILY 05/10/18 Carvedilol [Coreg (Beta Kadi)] 25 mg PO BID #60 tab 05/13/18 Aspirin E.C. [Ecotrin] 81 mg PO DAILY@0800 tab 05/25/18 Clopidogrel Bisulfate [Plavix] 75 mg PO DAILY #1 tab 05/25/18 Isosorbide Mononitrate [Imdur] 30 mg PO DAILY #30 tab 05/26/18 bumetanide 2 mg tablet 2 mg PO BID tab 06/29/18 potassium chloride ER 10 mEq 10 meq PO DAILY 06/29/18 tablet,extended release Metolazone [Zaroxolyn] 1 tab PO DAILY PRN 07/05/18 Lactulose 15 ml PO DAILY PRN 07/23/18 Potassium Chloride 10 meq PO DAILY PRN 07/23/18 Potassium Chloride [Klor-Con] 20 meq PO QHS 07/23/18 Past Medical History (Chronic Problems): Chronic Problems (Last Reviewed 07/23/18 @ 17:20 by Chris Stark DO) History of non-ST elevation myocardial infarction (NSTEMI) (Chronic 01/21/11) History of left heart catheterization (Chronic 01/21/11) 10/13/[address] Barrientos @ [facility]:Per Dr. Jiménez @ [facility]: CABG recommended History of right and left heart catheterization (Chronic 05/24/18) Patent NICHOLAS to LAD, SVG to 1st OM and SVG to RCA. Elevated right heart pressures, significant Diastolic dysfunction per cath done @ [facility], Dr. Barrientos Stented coronary artery (Chronic) 2003, JASON to circumflex ; 10/13/2009 tsfer from [facility] to [facility], total of 5 bare metal stents to RCA per Dr. Barrientos @ [facility]: 3.5 X 18 Pediatric Social Worker, followed distally by 3.0 X12 Pediatric Social Worker to distal RCA;3.5 X 15 Pediatric Social Worker, followed proximally by 4.0 X 18 Pediatric Social Worker to Mid RCA; 4.0 X 18 Pediatric Social Worker to Proximal RCA S/P CABG x 3 (Chronic 01/26/11) [facility] per Dr. Osito Hernandez: NICHOLAS to LAD, reverse SVG to OMbranch of CX, reverse SVG to PDA of RCA. PDA endarterectomy. Status post peripheral artery angioplasty with insertion of stent (Chronic ~2010) Right common iliac, [facility] Atherosclerotic heart disease of [place] coronary artery without angina pectoris (Chronic) 2003, JASON to circumflex ; 10/10/2009 tsfer from [facility] to [facility], total of 5 bare metal stents to RCA; CABG X 3 vessels @ [facility] 01/31/2011 (critical left main and restenosis of RCA stents) HLD (hyperlipidemia) (Chronic) HTN (hypertension) (Chronic) PAD (peripheral artery disease) (Chronic) COPD (chronic obstructive pulmonary disease) (Chronic) Tobacco dependence (Chronic) CKD (chronic kidney disease) (Chronic) Leukocytosis (Chronic) Anemia (Chronic) BPH (benign prostatic hyperplasia) (Chronic) Surgical History: coronary bypass surgery, tonsillectomy Psychiatric History: No pertinent psych hx - *Family History Maternal Family History: Family History (Last Reviewed 07/23/18 @ 17:20 by Chris Stark DO) Other CAD (coronary artery disease) CVA (cerebral vascular accident) Cancer Hypertension History Items: Heart Disease Paternal Family History: Family History (Last Reviewed 07/23/18 @ 17:20 by Chris Stark DO) Other CAD (coronary artery disease) CVA (cerebral vascular accident) Cancer Hypertension History Items: Heart Disease Lives: Spouse/ Significant Other Smoking Status: Light Smoker (<10/day) Tobacco Use: Cigarettes Alcohol: Occasional Drugs: None Review of Systems - Review of Systems General: Denies: Fever, Night Sweats, Fatigue Cardiovascular: Denies: Chest Discomfort, Shortness of Breath, Orthopnea, PND, Peripheral Edema, Palpitations, Lightheadedness, Dizziness, Near Syncope, Syncope Respiratory: Denies: Cough, Sputum Production, Hemoptysis Gastrointestinal: Denies: Hematemesis, Hematochezia, Melena Genitourinary: Denies: Dysuria, Hematuria Skin: Denies: Rash Subjectve: Patient laying in bed, awake, alert, on BiPAP, no acute distress. Objective: Vital Signs Temp Pulse Resp BP Pulse Ox 98.2 F 60 20 H 128/49 H 94 07/24/18 08:07 07/24/18 08:07 07/24/18 08:07 07/24/18 08:07 07/24/18 08:07 Oxygen Flow Rate (L/min) 4 Oxygen Delivery Method Nasal Cannula Weight: 182 lb 5.156 oz Body Mass Index (BMI) 28.7 Finger Stick Blood Glucose 200 Intake and Output for Last 24 Hours 07/22/18 07/23/18 07/24/18 23:59 23:59 23:59 Intake Total 240 / 240 120 / 120 Output Total 3500 / 3500 Balance -3260 / -3260 120 / 120 General: Awake, Alert, Oriented x 3 HEENT: PERRL, EOMI, Sclera Non Icteric Neck: Supple, Good ROM, No Lymph Node Enlargement Lungs: Clear to auscultation Cardiovascular: Regular Rhythm, Normal S1, Normal S2, No Murmurs, No Rubs, No Gallops Vascular: No Carotid Bruits, Normal Femoral Pulses, Normal Radial Pulses, Normal Dorsalis Pedal Pulse, Normal Posterior Tibial Pulses Abdomen: Bowel Sounds Present, Soft, Non Tender, No HSM, No Organomegaly Extremities: No Cyanosis, No Clubbing, Bilateral Edema +2 Neurological: No Focal Motor or Sensory Deficit 07/23/18 15:15: WBC 12.7 H, RBC 3.42 L, Hgb 10.4 L, Hct 31.4 L, MCV 91.8, MCH 30.4, MCHC 33.1, RDW 15.1 H, RDW Differential 50.6 H, Plt Count 167, MPV 10.0, Immature Gran % (Auto) 0.200, Neut % (Auto) 78.8 H, Lymph % (Auto) 9.3 L, [place] % (Auto) 10.7 H, Eos % (Auto) 0.8, Baso % (Auto) 0.2, Absolute Neuts (auto) 10.0 H , Total Counted Not Reportable 07/23/18 15:15: Sodium 129 L, Potassium 3.0 L, Chloride 91 L, Carbon Dioxide 24.0, Anion Gap 14, BUN 121 H*, Creatinine 3.11 H, Est GFR (MDRD) Af Amer 26 L, Est GFR (MDRD) Non-Af 21 L, BUN/Creatinine Ratio 38.9 H, Glucose 101, Calcium 8.7, Troponin I 0.064 H 07/23/18 15:15: B-Natriuretic Peptide 2929.3 H 07/23/18 18:17: Troponin I 0.062 H 07/23/18 21:27: Troponin I 0.092 H 07/23/18 23:24: Sodium 133 L, Potassium 3.8, Chloride 96 L, Carbon Dioxide 25.0, Anion Gap 12, BUN 61 H, Creatinine 2.38 H, Est GFR (MDRD) Af Amer 35 L, Est GFR (MDRD) Non-Af 29 L, BUN/Creatinine Ratio 25.6 H, Glucose 155 H, Calcium 8.6 07/24/18 03:04: pH 7.49 H, Bicarbonate Actual 26.6 H, POC Total CO2 28, Base Excess 3 H, O2 Saturation 94 L, ABG pCO2 35.4, ABG pO2 65 L, Clay Test POS 07/24/18 04:10: Sodium 135 L, Potassium 3.7, Chloride 98, Carbon Dioxide 25.0, Anion Gap 12, BUN 71 H, Creatinine 2.80 H, Est GFR (MDRD) Af Amer 29 L, Est GFR (MDRD) Non-Af 24 L, BUN/Creatinine Ratio 25.4 H, Glucose 151 H, Calcium 8.3 L 07/24/18 04:10: WBC 16.9 H, RBC 3.41 L, Hgb 10.6 L, Hct 32.0 L, MCV 93.8, MCH 31.1, MCHC 33.1, RDW 15.1 H, RDW Differential 48.9 H, Plt Count 199, MPV 10.5, Immature Gran % (Auto) 0.300, Neut % (Auto) 86.6 H, Lymph % (Auto) 6.4 L, [place] % (Auto) 6.2, Eos % (Auto) 0.3, Baso % (Auto) 0.2, Absolute Neuts (auto) 14.7 H, Total Counted Not Reportable 07/24/18 04:10: Lactic Acid 0.5 Rhythm: EKG: ECHO: Stress Test: Cardiac Cath: PCI: CT Surgery: Holter monitor: EPS: PPM: CXR: Chest CT Scan: Assessment/Plan 1. Ischemic cardiomyopathy: Patient recently underwent left and right heart catheterization which demonstrated moderate pulmonary hypertension superimposed on severe three-vessel coronary artery disease with widely patent grafts. Would not recommend any additional cardiac evaluation at this time. Would not recommend repeat echocardiogram or catheterization. It appears the patient's fluid management status requires him to have continual and ongoing future hemodialysis. Would recommend consideration for AV fistula placement with Dr. Lua sooner rather than later in order to maintain fluid management. Recommend continuing IV diuresis with IV Lasix, and continue antihypertensive therapies as outlined in the [facility]. With this diastolic dysfunction, there is no question that his hypertension and fluid overload induces and precipitate congestive heart failure given his pulmonary hypertension. Patient felt much better from a pulmonary standpoint while undergoing regular hemodialysis. 2. Hyperlipidemia: Continue statin based medications. 3. Peripheral vascular disease: The patient will require AV fistula placement if agreeable by renal. In addition he will require apparently carotid endarterectomy in the near future. 4. BPH: Patient was to undergo a prostate surgery by Dr. Villa prior to his last admission, and patient may benefit from urological consultation and correction of his BPH if still indicated. 5. Thank you very much for the opportunity to participate in the cardiac care of your patient. Consultation took place between 8 AM and 8:30 AM. Code Visit Inpatient E&M: [id number] Init Hosp L2
[2018-07-24] MEDS: Heparin Injection (Vial) 5,000 UNIT/ML VIAL 5000 UNIT SC ×2 (09:12→21:36)
[2018-07-24] MEDS: amLODIPine 10 MG Tablet PO (09:13)
[2018-07-24] MEDS: Carvedilol 25 MG Tablet PO ×2 (09:13→21:36)
[2018-07-24] MEDS: Clopidogrel Bisulfate 75 MG Tablet PO (09:13)
[2018-07-24] MEDS: Isosorbide Mononitrate 30 MG Tablet PO (09:13)
[2018-07-24] MEDS: Ferrous Sulfate 325 MG Tablet PO (09:13)
[2018-07-24] MEDS: Aspirin E.C. 81 MG Tablet PO (09:14)
[2018-07-24] MEDS: Lactulose 20 GM/30 ML UDC 10 GM PO (09:16)
[2018-07-24] MEDS: Finasteride 5 MG Tablet PO (09:17)
--- NOTE | 2018-07-24 09:52 | CASEMGMT ---
RN CM Assessment PCP: Tania Berger [facility] Specialists: nephrology Pharmacy: [facility] Prescription coverage: yes DC PLAN: Pt will return home after dc today. Is set up @[facility] for outpt dialysis on 07/26/18 @ 12:30. Placed dialysis appointment on DC instructions. Deangelo VALADEZ RN ACM
--- NOTE | 2018-07-24 10:07 | PCM.CONS.R ---
Consultation - Renal 07/24/18 PCP/ Referring MD: Requesting physician: Dr Christensen Primary care physician: Tania Berger, [employer]INE[employer] Reason for Consultation:: DAI - History of Present Illness History of Present Illness: The patient is a 67 year old M well known to us. He has known history of CHD with diastolic dysfunction, uncontrolled HTN. had frequent hospitalizations in March with fluid overload. had extensive cardiac evaluation which did now show significant findings. has been on dialysis since then. did ok for a while. we advised him to get AVF instead of a catheter. he was very hesitant. In the mean time urine output has improved. 24 hours urine collection for clearance came back at 25. We cut down his schedule to twice a week for 3 weeks with oral diuretics. he managed to not get interdialytic weight gain. was seen in clinic last tuesday and he gained 4 lbs hence I added bumex. apparently he didnt make much urine and had worsening of fluid overload, ended up in ER s/p emergent dialysis yesterday - Allergies Allergies: Allergies irbesartan [From Avapro] Adverse Reaction (Severe, Verified 07/23/18 14:43) Blisters zolpidem [From Ambien] Adverse Reaction (Severe, Verified 07/23/18 14:43) made me go crazy, memory loss - Current Medications Current Medications: Current Medications Acetaminophen (Tylenol) 650 mg PO Q6H PRN PRN PRN Reason: Mild Pain (scale 0-3)/T>100.7 Last Admin: 07/24/18 03:52 Dose: 650 mg Albuterol Sulfate (Ventolin Aerosols) 2.5 mg INHALATION Q4H PRN PRN Reason: SHORTNESS OF BREATH Last Admin: 07/24/18 07:12 Dose: 2.5 mg Albuterol/Ipratropium (Duoneb) 3 ml INHALATION Q6HWA.RT JAIME Amlodipine Besylate (Norvasc) 10 mg PO DAILY [facility] Last Admin: 07/24/18 09:13 Dose: 10 mg Aspirin (Ecotrin) 81 mg PO DAILY@0800 [facility] Last Admin: 07/24/18 09:14 Dose: 81 mg Atorvastatin Calcium (Lipitor) 80 mg PO QHS [facility] Last Admin: 07/23/18 22:21 Dose: 80 mg Carvedilol (Coreg) 25 mg PO BID [facility] Last Admin: 07/24/18 09:13 Dose: 25 mg Clopidogrel Bisulfate (Plavix) 75 mg PO DAILY [facility] Last Admin: 07/24/18 09:13 Dose: 75 mg Ferrous Sulfate (Ferrous Sulfate) 325 mg PO BIDCM [facility] Last Admin: 07/24/18 09:13 Dose: 325 mg Finasteride (Proscar) 5 mg PO DAILY [facility] Last Admin: 07/24/18 09:17 Dose: 5 mg Furosemide (Lasix) 40 mg IV BIDLX [facility] Last Admin: 07/23/18 17:33 Dose: 40 mg Heparin Sodium (Porcine) (Heparin Na) 5,000 unit SC Q12 [facility] Last Admin: 07/24/18 09:12 Dose: 5,000 unit Isosorbide Mononitrate (Imdur) 30 mg PO DAILY [facility] Last Admin: 07/24/18 09:13 Dose: 30 mg Lactulose (Chronulac, Cephulac) 10 gm PO DAILY [facility] Last Admin: 07/24/18 09:16 Dose: 10 gm Magnesium Hydroxide (Milk Of Magnesia) 30 ml PO DAILY PRN PRN Reason: Constipation Metolazone (Zaroxolyn) 5 mg PO DAILY PRN PRN Reason: other Nutritional Formula (Nepro Carb Steady) 120 ml PO 4X/DAY [facility] Last Admin: 07/23/18 22:25 Dose: 120 ml Ondansetron HCl (Zofran) 4 mg IV Q8H PRN PRN PRN Reason: Nausea Potassium Chloride (K-Dur) 10 meq PO DAILY [facility] Last Admin: 07/24/18 09:17 Dose: 10 meq Potassium Chloride (K-Dur) 20 meq PO QHS [facility] Last Admin: 07/23/18 22:22 Dose: 20 meq Potassium Chloride (K-Dur) 10 meq PO DAILY PRN PRN Reason: ON DAYS THAT TAKES METOLAZONE Pramipexole Dihydrochloride (Mirapex) 0.5 mg PO QHS [facility] Last Admin: 07/23/18 22:21 Dose: 0.5 mg Sodium Chloride () 5 - 30 ml IV UD PRN PRN Reason: SALINE FLUSH Last Admin: 07/24/18 09:15 Dose: 10 ml Tamsulosin HCl (Flomax) 0.4 mg PO DAILY@1730 [facility] Last Admin: 07/23/18 18:47 Dose: Not Given - Past Medical History Past Medical History (Chronic Problems): Chronic Problems (Last Reviewed 07/23/18 @ 17:20 by Chris Stark DO) History of non-ST elevation myocardial infarction (NSTEMI) (Chronic 01/21/11) History of left heart catheterization (Chronic 01/21/11) 10/13/[address] Barrientos @ [facility]:Per Dr. Jiménez @ [facility]: CABG recommended History of right and left heart catheterization (Chronic 05/24/18) Patent NICHOLAS to LAD, SVG to 1st OM and SVG to RCA. Elevated right heart pressures, significant Diastolic dysfunction per cath done @ [facility], Dr. Barrientos Stented coronary artery (Chronic) 2003, JASON to circumflex ; 10/13/[address] [facility] to [facility], total of 5 bare metal stents to RCA per Dr. Barrientos @ [facility]: 3.5 X 18 Electric Meter Tester Helper, followed distally by 3.0 X12 Electric Meter Tester Helper to distal RCA;3.5 X 15 Electric Meter Tester Helper, followed proximally by 4.0 X 18 Electric Meter Tester Helper to Mid RCA; 4.0 X 18 Electric Meter Tester Helper to Proximal RCA S/P CABG x 3 (Chronic 01/26/11) [facility] per Dr. Osito Hernandez: NICHOLAS to LAD, reverse SVG to OMbranch of CX, reverse SVG to PDA of RCA. PDA endarterectomy. Status post peripheral artery angioplasty with insertion of stent (Chronic ~2010) Right common iliac, [facility] Atherosclerotic heart disease of [place] coronary artery without angina pectoris (Chronic) 2003, JASON to circumflex ; 10/10/[address] [facility] to [facility], total of 5 bare metal stents to RCA; CABG X [address] [facility] 01/31/2011 (critical left main and restenosis of RCA stents) HLD (hyperlipidemia) (Chronic) HTN (hypertension) (Chronic) PAD (peripheral artery disease) (Chronic) COPD (chronic obstructive pulmonary disease) (Chronic) Tobacco dependence (Chronic) CKD (chronic kidney disease) (Chronic) Leukocytosis (Chronic) Anemia (Chronic) BPH (benign prostatic hyperplasia) (Chronic) - Past Surgical History Surgical History: coronary bypass surgery, tonsillectomy - Social History Smoking Status: Light Smoker (<10/day) Alcohol: Occasional Drugs: None - Family History Maternal Family History: Family History (Last Reviewed 07/23/18 @ 17:20 by Chris Stark DO) Other CAD (coronary artery disease) CVA (cerebral vascular accident) Cancer Hypertension History Items: Heart Disease Paternal Family History: Family History (Last Reviewed 07/23/18 @ 17:20 by Chris Stark DO) Other CAD (coronary artery disease) CVA (cerebral vascular accident) Cancer Hypertension History Items: Heart Disease Review of Systems Constitutional: Denies: Chills, Fever, Weight Change HEENT: Denies: Head Aches, Sinus Congestion, Sinus Drainage Cardiovascular: Denies: Chest Pain, Palpitations Respiratory: Denies: Cough, Shortness of breath at rest, Sputum production Gastrointestinal: Denies: Abdominal Pain, Nausea, Vomiting Genitourinary: Denies: Dysuria Musculoskeletal: Denies: Joint Pain, Joint Tenderness Skin: Denies: Rash, Wounds Neurological: Denies: Numbness, Tingling, Focal weakness Psychiatric: Denies: Anxiety, Depression, Homicidal Ideations, Suicidal Ideations Hematologic/ Lymphatic: Denies: Easy Bruising, Easy Bleeding Patient Problems: Active and Suspected Problems (Last Reviewed 07/23/18 @ 17:20 by Chris Stark DO) DAI (acute kidney injury) (Acute) - Physical Exam General: Alert, Oriented x3, Cooperative HEENT: Atraumatic, PERRLA, EOMI, Normocephalic Neck: Supple, No JVD, Negative Carotid Bruits Lungs: Clear to auscultation, Normal air movement Cardiovascular: Regular rate, No murmurs Abdomen: Bowel Sounds Present, Soft, Non Tender Extremities: No edema, Capillary Refill Less than 3 Seconds Skin: No rashes, No breakdown Musculoskeletal: No Tenderness to Palpation of Joints or Extremities Neurological: Cranial nerves II-XII grossly intact Psych/Mental Status: Normal Affect, Appropriate Vital Signs Temp Pulse Resp BP Pulse Ox 98.5 F 60 18 131/48 H 95 07/24/18 09:09 07/24/18 09:09 07/24/18 09:09 07/24/18 09:09 07/24/18 09:09 Oxygen Flow Rate (L/min) 4 Oxygen Delivery Method Nasal Cannula Weight: 82.7 kg Body Mass Index (BMI) 28.7 Finger Stick Blood Glucose 200 Intake and Output for Last 24 Hours 1007/23/18 07/24/18 23:59 23:59 23:59 Intake Total 240 / 240 120 / 120 Output Total 3500 / 3500 Balance -3260 / -3260 120 / 120 Laboratory Tests Past 24 Hrs 07/23/18 07/23/18 07/23/18 15:15 15:15 15:15 WBC 12.7 H RBC 3.42 L Hgb 10.4 L Hct 31.4 L MCV 91.8 MCH 30.4 MCHC 33.1 RDW 15.1 H RDW Differential 50.6 H Plt Count 167 MPV 10.0 Immature Gran % (Auto) 0.200 Neut % (Auto) 78.8 H Lymph % (Auto) 9.3 L [place] % (Auto) 10.7 H Eos % (Auto) 0.8 Baso % (Auto) 0.2 Absolute Neuts (auto) 10.0 H Absolute Lymphs (auto) 1.18 Total Counted Not Reportable Specimen Type Sample Site pH Bicarbonate Actual POC Total CO2 Base Excess O2 Saturation ABG pCO2 ABG pO2 Clay Test O2 Delivery Device Liter Flow Blood Gas Notified Whom Blood Gas Notified Time Sodium 129 L Potassium 3.0 L Chloride 91 L Carbon Dioxide 24.0 Anion Gap 14 BUN 121 H* Creatinine 3.11 H Estim Creat Clear Calc 22.60 Est GFR (MDRD) Af Amer 26 L Est GFR (MDRD) Non-Af 21 L BUN/Creatinine Ratio 38.9 H Glucose 101 Lactic Acid Calcium 8.7 Troponin I 0.064 H B-Natriuretic Peptide 2929.3 H 07/23/18 07/23/18 07/23/18 18:17 21:27 23:24 WBC RBC Hgb Hct MCV MCH MCHC RDW RDW Differential Plt Count MPV Immature Gran % (Auto) Neut % (Auto) Lymph % (Auto) [place] % (Auto) Eos % (Auto) Baso % (Auto) Absolute Neuts (auto) Absolute Lymphs (auto) Total Counted Specimen Type Sample Site pH Bicarbonate Actual POC Total CO2 Base Excess O2 Saturation ABG pCO2 ABG pO2 Clay Test O2 Delivery Device Liter Flow Blood Gas Notified Whom Blood Gas Notified Time Sodium 133 L Potassium 3.8 Chloride 96 L Carbon Dioxide 25.0 Anion Gap 12 BUN 61 H Creatinine 2.38 H Estim Creat Clear Calc 29.54 Est GFR (MDRD) Af Amer 35 L Est GFR (MDRD) Non-Af 29 L BUN/Creatinine Ratio 25.6 H Glucose 155 H Lactic Acid Calcium 8.6 Troponin I 0.062 H 0.092 H B-Natriuretic Peptide 07/24/18 07/24/18 07/24/18 03:04 04:10 04:10 WBC 16.9 H RBC 3.41 L Hgb 10.6 L Hct 32.0 L MCV 93.8 MCH 31.1 MCHC 33.1 RDW 15.1 H RDW Differential 48.9 H Plt Count 199 MPV 10.5 Immature Gran % (Auto) 0.300 Neut % (Auto) 86.6 H Lymph % (Auto) 6.4 L [place] % (Auto) 6.2 Eos % (Auto) 0.3 Baso % (Auto) 0.2 Absolute Neuts (auto) 14.7 H Absolute Lymphs (auto) 1.08 Total Counted Not Reportable Specimen Type ART Sample Site L Radial pH 7.49 H Bicarbonate Actual 26.6 H POC Total CO2 28 Base Excess 3 H O2 Saturation 94 L ABG pCO2 35.4 ABG pO2 65 L Clay Test POS O2 Delivery Device Nasal Can Liter Flow 5.0 Blood Gas Notified Whom [facility] MD Blood Gas Notified Time 257 Sodium 135 L Potassium 3.7 Chloride 98 Carbon Dioxide 25.0 Anion Gap 12 BUN 71 H Creatinine 2.80 H Estim Creat Clear Calc 25.11 Est GFR (MDRD) Af Amer 29 L Est GFR (MDRD) Non-Af 24 L BUN/Creatinine Ratio 25.4 H Glucose 151 H Lactic Acid Calcium 8.3 L Troponin I B-Natriuretic Peptide 07/24/18 04:10 WBC RBC Hgb Hct MCV MCH MCHC RDW RDW Differential Plt Count MPV Immature Gran % (Auto) Neut % (Auto) Lymph % (Auto) [place] % (Auto) Eos % (Auto) Baso % (Auto) Absolute Neuts (auto) Absolute Lymphs (auto) Total Counted Specimen Type Sample Site pH Bicarbonate Actual POC Total CO2 Base Excess O2 Saturation ABG pCO2 ABG pO2 Clay Test O2 Delivery Device Liter Flow Blood Gas Notified Whom Blood Gas Notified Time Sodium Potassium Chloride Carbon Dioxide Anion Gap BUN Creatinine Estim Creat Clear Calc Est GFR (MDRD) Af Amer Est GFR (MDRD) Non-Af BUN/Creatinine Ratio Glucose Lactic Acid 0.5 Calcium Troponin I B-Natriuretic Peptide Assessment/Plan All Active Problems (Last Reviewed 07/23/18 @ 17:20 by Chris Stark DO) DAI (acute kidney injury) (Acute) S/P dialysis catheter insertion (Acute 05/22/18) History of thoracentesis (Acute 05/22/18) Acute renal failure superimposed on chronic kidney disease (Acute) Acute respiratory failure with hypoxia (Acute) Diastolic CHF (Acute) DAI CHF Now likely ESRD failed trial of stopping dialysis. He is now agreeable to do dialysis on an ongoing basis. will have Dr Lua see him for AVF placement (as outpatient) Dialysis today, continue outpatient dialysis on a MWF schedule History of prostrate enlargement. had insurance issues with Dr zhou here. was seeing Dr blas in [facility]. will check bladder scan today called dialysis unit he has a MWF 1230 PM spot will go back tuesday for dialysis discussed with Dr christensen discussed with at bedside
--- NOTE | 2018-07-24 10:19 | CON.PCM_ITS ---
Consultation - Renal 07/24/18 PCP/ Referring MD: Requesting physician: Dr Christensen Primary care physician: Tania Berger, ADMINISTRATIVE SALES ASSISTANT-C Reason for Consultation:: DAI - History of Present Illness History of Present Illness: The patient is a 67 year old M well known to us. He has known history of CHD with diastolic dysfunction, uncontrolled HTN. had frequent hospitalizations in March with fluid overload. had extensive cardiac evaluation which did now show significant findings. has been on dialysis since then. did ok for a while. we advised him to get AVF instead of a catheter. he was very hesitant. In the mean time urine output has improved. 24 hours urine collection for clearance came back at 25. We cut down his schedule to twice a week for 3 weeks with oral diuretics. he managed to not get interdialytic weight gain. was seen in clinic last tuesday and he gained 4 lbs hence I added bumex. apparently he didnt make much urine and had worsening of fluid overload, ended up in ER s/p emergent dialysis yesterday - Allergies Allergies: Allergies irbesartan [From Avapro] Adverse Reaction (Severe, Verified 07/23/18 14:43) Blisters zolpidem [From Ambien] Adverse Reaction (Severe, Verified 07/23/18 14:43) made me go crazy, memory loss - Current Medications Current Medications: Current Medications Acetaminophen (Tylenol) 650 mg PO Q6H PRN PRN PRN Reason: Mild Pain (scale 0-3)/T>100.7 Last Admin: 07/24/18 03:52 Dose: 650 mg Albuterol Sulfate (Ventolin Aerosols) 2.5 mg INHALATION Q4H PRN PRN Reason: SHORTNESS OF BREATH Last Admin: 07/24/18 07:12 Dose: 2.5 mg Albuterol/Ipratropium (Duoneb) 3 ml INHALATION Q6HWA.RT JAIME Amlodipine Besylate (Norvasc) 10 mg PO DAILY [facility] Last Admin: 07/24/18 09:13 Dose: 10 mg Aspirin (Ecotrin) 81 mg PO DAILY@0800 [facility] Last Admin: 07/24/18 09:14 Dose: 81 mg Atorvastatin Calcium (Lipitor) 80 mg PO QHS [facility] Last Admin: 07/23/18 22:21 Dose: 80 mg Carvedilol (Coreg) 25 mg PO BID [facility] Last Admin: 07/24/18 09:13 Dose: 25 mg Clopidogrel Bisulfate (Plavix) 75 mg PO DAILY [facility] Last Admin: 07/24/18 09:13 Dose: 75 mg Ferrous Sulfate (Ferrous Sulfate) 325 mg PO BIDCM [facility] Last Admin: 07/24/18 09:13 Dose: 325 mg Finasteride (Proscar) 5 mg PO DAILY [facility] Last Admin: 07/24/18 09:17 Dose: 5 mg Furosemide (Lasix) 40 mg IV BIDLX [facility] Last Admin: 07/23/18 17:33 Dose: 40 mg Heparin Sodium (Porcine) (Heparin Na) 5,000 unit SC Q12 [facility] Last Admin: 07/24/18 09:12 Dose: 5,000 unit Isosorbide Mononitrate (Imdur) 30 mg PO DAILY [facility] Last Admin: 07/24/18 09:13 Dose: 30 mg Lactulose (Chronulac, Cephulac) 10 gm PO DAILY [facility] Last Admin: 07/24/18 09:16 Dose: 10 gm Magnesium Hydroxide (Milk Of Magnesia) 30 ml PO DAILY PRN PRN Reason: Constipation Metolazone (Zaroxolyn) 5 mg PO DAILY PRN PRN Reason: other Nutritional Formula (Nepro Carb Steady) 120 ml PO 4X/DAY [facility] Last Admin: 07/23/18 22:25 Dose: 120 ml Ondansetron HCl (Zofran) 4 mg IV Q8H PRN PRN PRN Reason: Nausea Potassium Chloride (K-Dur) 10 meq PO DAILY [facility] Last Admin: 07/24/18 09:17 Dose: 10 meq Potassium Chloride (K-Dur) 20 meq PO QHS [facility] Last Admin: 07/23/18 22:22 Dose: 20 meq Potassium Chloride (K-Dur) 10 meq PO DAILY PRN PRN Reason: ON DAYS THAT TAKES METOLAZONE Pramipexole Dihydrochloride (Mirapex) 0.5 mg PO QHS [facility] Last Admin: 07/23/18 22:21 Dose: 0.5 mg Sodium Chloride () 5 - 30 ml IV UD PRN PRN Reason: SALINE FLUSH Last Admin: 07/24/18 09:15 Dose: 10 ml Tamsulosin HCl (Flomax) 0.4 mg PO DAILY@1730 [facility] Last Admin: 07/23/18 18:47 Dose: Not Given - Past Medical History Past Medical History (Chronic Problems): Chronic Problems (Last Reviewed 07/23/18 @ 17:20 by Chris Stark DO) History of non-ST elevation myocardial infarction (NSTEMI) (Chronic 01/21/11) History of left heart catheterization (Chronic 01/21/11) 10/13/[address] Barrientos @ [facility] [place]:Per Dr. Jiménez @ [facility]: CABG recommended History of right and left heart catheterization (Chronic 05/24/18) Patent NICHOLAS to LAD, SVG to 1st OM and SVG to RCA. Elevated right heart pressures, significant Diastolic dysfunction per cath done @ [facility], Dr. Barrientos Stented coronary artery (Chronic) 2003, JASON to circumflex ; 10/13/2009 tsfer from [facility] to [facility], total of 5 bare metal stents to RCA per Dr. Barrientos @ [facility] [place]: 3.5 X 18 Dynamometer Mechanic, followed distally by 3.0 X12 Dynamometer Mechanic to distal RCA;3.5 X 15 Dynamometer Mechanic, followed proximally by 4.0 X 18 Dynamometer Mechanic to Mid RCA; 4.0 X 18 Dynamometer Mechanic to Proximal RCA S/P CABG x 3 (Chronic 01/26/11) [facility] per Dr. Osito Hernandez: NICHOLAS to LAD, reverse SVG to OMbranch of CX, reverse SVG to PDA of RCA. PDA endarterectomy. Status post peripheral artery angioplasty with insertion of stent (Chronic ~ 2010) Right common iliac, [facility] Atherosclerotic heart disease of [place] coronary artery without angina pectoris (Chronic) 2003, JASON to circumflex ; 10/10/2009 tsfer from [facility] to [facility], total of 5 bare metal stents to RCA; CABG X 3 vessels @ [facility] 01/31/2011 (critical left main and restenosis of RCA stents) HLD (hyperlipidemia) (Chronic) HTN (hypertension) (Chronic) PAD (peripheral artery disease) (Chronic) COPD (chronic obstructive pulmonary disease) (Chronic) Tobacco dependence (Chronic) CKD (chronic kidney disease) (Chronic) Leukocytosis (Chronic) Anemia (Chronic) BPH (benign prostatic hyperplasia) (Chronic) - Past Surgical History Surgical History: coronary bypass surgery, tonsillectomy - Social History Smoking Status: Light Smoker (<10/day) Alcohol: Occasional Drugs: None - Family History Maternal Family History: Family History (Last Reviewed 07/23/18 @ 17:20 by Chris Stark DO) Other CAD (coronary artery disease) CVA (cerebral vascular accident) Cancer Hypertension History Items: Heart Disease Paternal Family History: Family History (Last Reviewed 07/23/18 @ 17:20 by Chris Stark DO) Other CAD (coronary artery disease) CVA (cerebral vascular accident) Cancer Hypertension History Items: Heart Disease Review of Systems Constitutional: Denies: Chills, Fever, Weight Change HEENT: Denies: Head Aches, Sinus Congestion, Sinus Drainage Cardiovascular: Denies: Chest Pain, Palpitations Respiratory: Denies: Cough, Shortness of breath at rest, Sputum production Gastrointestinal: Denies: Abdominal Pain, Nausea, Vomiting Genitourinary: Denies: Dysuria Musculoskeletal: Denies: Joint Pain, Joint Tenderness Skin: Denies: Rash, Wounds Neurological: Denies: Numbness, Tingling, Focal weakness Psychiatric: Denies: Anxiety, Depression, Homicidal Ideations, Suicidal Ideations Hematologic/ Lymphatic: Denies: Easy Bruising, Easy Bleeding Patient Problems: Active and Suspected Problems (Last Reviewed 07/23/18 @ 17:20 by Chris Stark DO) DAI (acute kidney injury) (Acute) - Physical Exam General: Alert, Oriented x3, Cooperative HEENT: Atraumatic, PERRLA, EOMI, Normocephalic Neck: Supple, No JVD, Negative Carotid Bruits Lungs: Clear to auscultation, Normal air movement Cardiovascular: Regular rate, No murmurs Abdomen: Bowel Sounds Present, Soft, Non Tender Extremities: No edema, Capillary Refill Less than 3 Seconds Skin: No rashes, No breakdown Musculoskeletal: No Tenderness to Palpation of Joints or Extremities Neurological: Cranial nerves II-XII grossly intact Psych/Mental Status: Normal Affect, Appropriate Vital Signs Temp Pulse Resp BP Pulse Ox 98.5 F 60 18 131/48 H 95 07/24/18 09:09 07/24/18 09:09 07/24/18 09:09 07/24/18 09:09 07/24/18 09:09 Oxygen Flow Rate (L/min) 4 Oxygen Delivery Method Nasal Cannula Weight: 82.7 kg Body Mass Index (BMI) 28.7 Finger Stick Blood Glucose 200 Intake and Output for Last 24 Hours 1007/23/18 07/24/18 23:59 23:59 23:59 Intake Total 240 / 240 120 / 120 Output Total 3500 / 3500 Balance -3260 / -3260 120 / 120 Laboratory Tests Past 24 Hrs 07/23/18 07/23/18 07/23/18 15:15 15:15 15:15 WBC 12.7 H RBC 3.42 L Hgb 10.4 L Hct 31.4 L MCV 91.8 MCH 30.4 MCHC 33.1 RDW 15.1 H RDW Differential 50.6 H Plt Count 167 MPV 10.0 Immature Gran % (Auto) 0.200 Neut % (Auto) 78.8 H Lymph % (Auto) 9.3 L [place] % (Auto) 10.7 H Eos % (Auto) 0.8 Baso % (Auto) 0.2 Absolute Neuts (auto) 10.0 H Absolute Lymphs (auto) 1.18 Total Counted Not Reportable Specimen Type Sample Site pH Bicarbonate Actual POC Total CO2 Base Excess O2 Saturation ABG pCO2 ABG pO2 Clay Test O2 Delivery Device Liter Flow Blood Gas Notified Whom Blood Gas Notified Time Sodium 129 L Potassium 3.0 L Chloride 91 L Carbon Dioxide 24.0 Anion Gap 14 BUN 121 H* Creatinine 3.11 H Estim Creat Clear Calc 22.60 Est GFR (MDRD) Af Amer 26 L Est GFR (MDRD) Non-Af 21 L BUN/Creatinine Ratio 38.9 H Glucose 101 Lactic Acid Calcium 8.7 Troponin I 0.064 H B-Natriuretic Peptide 2929.3 H 07/23/18 07/23/18 07/23/18 18:17 21:27 23:24 WBC RBC Hgb Hct MCV MCH MCHC RDW RDW Differential Plt Count MPV Immature Gran % (Auto) Neut % (Auto) Lymph % (Auto) [place] % (Auto) Eos % (Auto) Baso % (Auto) Absolute Neuts (auto) Absolute Lymphs (auto) Total Counted Specimen Type Sample Site pH Bicarbonate Actual POC Total CO2 Base Excess O2 Saturation ABG pCO2 ABG pO2 Clay Test O2 Delivery Device Liter Flow Blood Gas Notified Whom Blood Gas Notified Time Sodium 133 L Potassium 3.8 Chloride 96 L Carbon Dioxide 25.0 Anion Gap 12 BUN 61 H Creatinine 2.38 H Estim Creat Clear Calc 29.54 Est GFR (MDRD) Af Amer 35 L Est GFR (MDRD) Non-Af 29 L BUN/Creatinine Ratio 25.6 H Glucose 155 H Lactic Acid Calcium 8.6 Troponin I 0.062 H 0.092 H B-Natriuretic Peptide 07/24/18 07/24/18 07/24/18 03:04 04:10 04:10 WBC 16.9 H RBC 3.41 L Hgb 10.6 L Hct 32.0 L MCV 93.8 MCH 31.1 MCHC 33.1 RDW 15.1 H RDW Differential 48.9 H Plt Count 199 MPV 10.5 Immature Gran % (Auto) 0.300 Neut % (Auto) 86.6 H Lymph % (Auto) 6.4 L [place] % (Auto) 6.2 Eos % (Auto) 0.3 Baso % (Auto) 0.2 Absolute Neuts (auto) 14.7 H Absolute Lymphs (auto) 1.08 Total Counted Not Reportable Specimen Type ART Sample Site L Radial pH 7.49 H Bicarbonate Actual 26.6 H POC Total CO2 28 Base Excess 3 H O2 Saturation 94 L ABG pCO2 35.4 ABG pO2 65 L Clay Test POS O2 Delivery Device Nasal Can Liter Flow 5.0 Blood Gas Notified Whom [facility] MD Blood Gas Notified Time 257 Sodium 135 L Potassium 3.7 Chloride 98 Carbon Dioxide 25.0 Anion Gap 12 BUN 71 H Creatinine 2.80 H Estim Creat Clear Calc 25.11 Est GFR (MDRD) Af Amer 29 L Est GFR (MDRD) Non-Af 24 L BUN/Creatinine Ratio 25.4 H Glucose 151 H Lactic Acid Calcium 8.3 L Troponin I B-Natriuretic Peptide 07/24/18 04:10 WBC RBC Hgb Hct MCV MCH MCHC RDW RDW Differential Plt Count MPV Immature Gran % (Auto) Neut % (Auto) Lymph % (Auto) [place] % (Auto) Eos % (Auto) Baso % (Auto) Absolute Neuts (auto) Absolute Lymphs (auto) Total Counted Specimen Type Sample Site pH Bicarbonate Actual POC Total CO2 Base Excess O2 Saturation ABG pCO2 ABG pO2 Clay Test O2 Delivery Device Liter Flow Blood Gas Notified Whom Blood Gas Notified Time Sodium Potassium Chloride Carbon Dioxide Anion Gap BUN Creatinine Estim Creat Clear Calc Est GFR (MDRD) Af Amer Est GFR (MDRD) Non-Af BUN/Creatinine Ratio Glucose Lactic Acid 0.5 Calcium Troponin I B-Natriuretic Peptide Assessment/Plan All Active Problems (Last Reviewed 07/23/18 @ 17:20 by Chris Stark DO) DAI (acute kidney injury) (Acute) S/P dialysis catheter insertion (Acute 05/22/18) History of thoracentesis (Acute 05/22/18) Acute renal failure superimposed on chronic kidney disease (Acute) Acute respiratory failure with hypoxia (Acute) Diastolic CHF (Acute) DAI CHF Now likely ESRD failed trial of stopping dialysis. He is now agreeable to do dialysis on an ongoing basis. will have Dr Lua see him for AVF placement (as outpatient) Dialysis today, continue outpatient dialysis on a MWF schedule History of prostrate enlargement. had insurance issues with Dr zhou here. was seeing Dr blas in [facility]. will check bladder scan today called dialysis unit he has a MWF 1230 PM spot will go back tuesday for dialysis discussed with Dr christensen discussed with at bedside
[2018-07-24 10:52] LABS: Mucous, Urine 0 SEEN /hpf (<or=2+)
[2018-07-24 10:56] LABS: Color, Urine Yellow (Yellow); Glucose, Dipstick Normal (Normal); Ketone-Dipstick Negative (Negative); Leukocyte Esterase-Dipstick 100 /ul (Negative); Nitrite-Dipstick Negative (Negative); Occult Blood-Urine 10 /ul (Negative); Protein-Dipstick 30 mg/dl (Negative); Specific Gravity, Urine 1.015 (1.002-1.030); Urine Clarity Sl. Cloudy (Clear); Urine Urobilinogen Normal (Normal)
[2018-07-24 10:57] LABS: Urine Bilirubin Dipstick 1 mg/dL (Negative)
[2018-07-24 11:03] LABS: Fine Granular Cast- Urine 0-5 SEEN /lpf (0-5); Red Blood Cells-Urine 0-5 SEEN /hpf (0-5); Squamous Epithelial Cells - UA 0-5 SEEN /hpf (0-5); White Blood Cells 10-25 SEEN /hpf (0-5)
[2018-07-24 11:04] LABS: Bacteria 1+ /hpf (None Seen)
--- NOTE | 2018-07-24 11:04 | PCM.PROGNOTE ---
<Itz Bennett - Last Filed: 07/24/18 11:04> Patient Problems: Active and Suspected Problems (Last Reviewed 07/23/18 @ 17:20 by Chris Stark DO) DAI (acute kidney injury) (Acute) Subjective: Placed on CPAP overnight. cough continues, increased O2 demand continues. SOB and edema improved since dialysis last night. Next dialysis today. Plans to resume dialysis as outpatient. Fever 102 overnight. No significant urinary retention on post void. did produce some urine, feels he is emptying better. - Physical Exam General: Alert, Oriented x3, Cooperative HEENT: Atraumatic, PERRLA, EOMI, Normocephalic Neck: Supple, No JVD, Negative Carotid Bruits Lungs: Diminished, Rales, Wheezes Cardiovascular: Regular rate, No murmurs Abdomen: Bowel Sounds Present, Soft, Non Tender Extremities: No edema, Capillary Refill Less than 3 Seconds Skin: No rashes, No breakdown Musculoskeletal: No Tenderness to Palpation of Joints or Extremities Neurological: Cranial nerves II-XII grossly intact Psych/Mental Status: Normal Affect, Appropriate Vital Signs Temp Pulse Resp BP Pulse Ox 98.5 F 60 18 131/48 H 95 07/24/18 09:09 07/24/18 09:09 07/24/18 09:09 07/24/18 09:09 07/24/18 09:09 Oxygen Flow Rate (L/min) 4 Oxygen Delivery Method Nasal Cannula Weight: 182 lb 5.156 oz Body Mass Index (BMI) 28.7 Finger Stick Blood Glucose 200 Intake and Output for Last 24 Hours 07/22/18 07/23/18 07/24/18 23:59 23:59 23:59 Intake Total 240 / 240 120 / 120 Output Total 3500 / 3500 190 / 190 Balance -3260 / -3260 -70 / -70 Microbiology Past 72 Hours 07/24/18 08:35 Gram Stain - Final Sputum, Expectorated/Coughed Respiratory Culture - Final Laboratory Tests Past 24 Hrs 07/23/18 07/23/18 07/23/18 15:15 15:15 15:15 WBC 12.7 H RBC 3.42 L Hgb 10.4 L Hct 31.4 L MCV 91.8 MCH 30.4 MCHC 33.1 RDW 15.1 H RDW Differential 50.6 H Plt Count 167 MPV 10.0 Immature Gran % (Auto) 0.200 Neut % (Auto) 78.8 H Lymph % (Auto) 9.3 L [place] % (Auto) 10.7 H Eos % (Auto) 0.8 Baso % (Auto) 0.2 Absolute Neuts (auto) 10.0 H Absolute Lymphs (auto) 1.18 Total Counted Not Reportable Specimen Type Sample Site pH Bicarbonate Actual POC Total CO2 Base Excess O2 Saturation ABG pCO2 ABG pO2 Clay Test O2 Delivery Device Liter Flow Blood Gas Notified Whom Blood Gas Notified Time Sodium 129 L Potassium 3.0 L Chloride 91 L Carbon Dioxide 24.0 Anion Gap 14 BUN 121 H* Creatinine 3.11 H Estim Creat Clear Calc 22.60 Est GFR (MDRD) Af Amer 26 L Est GFR (MDRD) Non-Af 21 L BUN/Creatinine Ratio 38.9 H Glucose 101 Lactic Acid Calcium 8.7 Troponin I 0.064 H B-Natriuretic Peptide 2929.3 H Urine Color Urine Clarity Urine pH Ur Specific [place] Urine Protein Urine Glucose (UA) Urine Ketones Urine Occult Blood Urine Nitrite Urine Bilirubin Urine Urobilinogen Ur Leukocyte Esterase Urine RBC Urine WBC Ur Squamous Epith Cells Urine Bacteria Urine Mucus 07/23/18 07/23/18 07/23/18 18:17 21:27 23:24 WBC RBC Hgb Hct MCV MCH MCHC RDW RDW Differential Plt Count MPV Immature Gran % (Auto) Neut % (Auto) Lymph % (Auto) [place] % (Auto) Eos % (Auto) Baso % (Auto) Absolute Neuts (auto) Absolute Lymphs (auto) Total Counted Specimen Type Sample Site pH Bicarbonate Actual POC Total CO2 Base Excess O2 Saturation ABG pCO2 ABG pO2 Clay Test O2 Delivery Device Liter Flow Blood Gas Notified Whom Blood Gas Notified Time Sodium 133 L Potassium 3.8 Chloride 96 L Carbon Dioxide 25.0 Anion Gap 12 BUN 61 H Creatinine 2.38 H Estim Creat Clear Calc 29.54 Est GFR (MDRD) Af Amer 35 L Est GFR (MDRD) Non-Af 29 L BUN/Creatinine Ratio 25.6 H Glucose 155 H Lactic Acid Calcium 8.6 Troponin I 0.062 H 0.092 H B-Natriuretic Peptide Urine Color Urine Clarity Urine pH Ur Specific [place] Urine Protein Urine Glucose (UA) Urine Ketones Urine Occult Blood Urine Nitrite Urine Bilirubin Urine Urobilinogen Ur Leukocyte Esterase Urine RBC Urine WBC Ur Squamous Epith Cells Urine Bacteria Urine Mucus 07/24/18 07/24/18 07/24/18 03:04 04:10 04:10 WBC 16.9 H RBC 3.41 L Hgb 10.6 L Hct 32.0 L MCV 93.8 MCH 31.1 MCHC 33.1 RDW 15.1 H RDW Differential 48.9 H Plt Count 199 MPV 10.5 Immature Gran % (Auto) 0.300 Neut % (Auto) 86.6 H Lymph % (Auto) 6.4 L [place] % (Auto) 6.2 Eos % (Auto) 0.3 Baso % (Auto) 0.2 Absolute Neuts (auto) 14.7 H Absolute Lymphs (auto) 1.08 Total Counted Not Reportable Specimen Type ART Sample Site L Radial pH 7.49 H Bicarbonate Actual 26.6 H POC Total CO2 28 Base Excess 3 H O2 Saturation 94 L ABG pCO2 35.4 ABG pO2 65 L Clay Test POS O2 Delivery Device Nasal Can Liter Flow 5.0 Blood Gas Notified Whom [facility] Blood Gas Notified Time 257 Sodium 135 L Potassium 3.7 Chloride 98 Carbon Dioxide 25.0 Anion Gap 12 BUN 71 H Creatinine 2.80 H Estim Creat Clear Calc 25.11 Est GFR (MDRD) Af Amer 29 L Est GFR (MDRD) Non-Af 24 L BUN/Creatinine Ratio 25.4 H Glucose 151 H Lactic Acid Calcium 8.3 L Troponin I B-Natriuretic Peptide Urine Color Urine Clarity Urine pH Ur Specific [place] Urine Protein Urine Glucose (UA) Urine Ketones Urine Occult Blood Urine Nitrite Urine Bilirubin Urine Urobilinogen Ur Leukocyte Esterase Urine RBC Urine WBC Ur Squamous Epith Cells Urine Bacteria Urine Mucus 07/24/18 07/24/18 04:10 10:30 WBC RBC Hgb Hct MCV MCH MCHC RDW RDW Differential Plt Count MPV Immature Gran % (Auto) Neut % (Auto) Lymph % (Auto) [place] % (Auto) Eos % (Auto) Baso % (Auto) Absolute Neuts (auto) Absolute Lymphs (auto) Total Counted Specimen Type Sample Site pH Bicarbonate Actual POC Total CO2 Base Excess O2 Saturation ABG pCO2 ABG pO2 Clay Test O2 Delivery Device Liter Flow Blood Gas Notified Whom Blood Gas Notified Time Sodium Potassium Chloride Carbon Dioxide Anion Gap BUN Creatinine Estim Creat Clear Calc Est GFR (MDRD) Af Amer Est GFR (MDRD) Non-Af BUN/Creatinine Ratio Glucose Lactic Acid 0.5 Calcium Troponin I B-Natriuretic Peptide Urine Color Yellow Urine Clarity Sl. Cloudy Urine pH 5.0 Ur Specific [place] 1.015 Urine Protein 30 H Urine Glucose (UA) Normal Urine Ketones Negative Urine Occult Blood 10 H Urine Nitrite Negative Urine Bilirubin 1 H Urine Urobilinogen Normal Ur Leukocyte Esterase 100 H Urine RBC Pending Urine WBC Pending Ur Squamous Epith Cells Pending Urine Bacteria Pending Urine Mucus Pending Medical Necessity - Tobacco Use Smoking Status: Light Smoker (<10/day) Tobacco Use: Cigarettes Assessment/Plan All Active Problems (Last Reviewed 07/23/18 @ 17:20 by Chris Stark DO) DAI (acute kidney injury) (Acute) S/P dialysis catheter insertion (Acute 05/22/18) History of thoracentesis (Acute 05/22/18) Acute renal failure superimposed on chronic kidney disease (Acute) Acute respiratory failure with hypoxia (Acute) Diastolic CHF (Acute) 1. Acute hypoxic respiratory failure 2/2 acute diastolic CHF exacerbation - last EF 50% this year. Improved with dialysis. Continue I/O, fluid / sodium restriction. 2. HCAP - worsened leukocytosis, fever overnight + RLL infiltrate on CXR today with clearing of CHF. Start IV levaquin for HCAP (dialysis pt). Check urine ag, sputum, start pep, mucinex, IS. 3. DAI on CKDIV/V - [place] following. Continue dialysis as directed. 4. CAD - prior CABG/Stents/[place] - continue other home meds - coreg, asa, statin, plavix, imdur 5. BPH - follows [facility], plans for radiation therapy. Continue Proscar/Flomax. No significant retention. 6. Hx CVA - asa/statin/plavix 7. HTN - elevated, monitor with diuresis, prn hydralazine 8. Chronic constipation - continue prn lactulose 9. Carotid stenosis - o/p follow up with Dr. Lua for surgery 10. Ventral hernia - no acute issues DVT ppx: heparin DC planning: may need to go back on O2 at home (been off recently). This patient was seen by Itz Bennett PA-C under the supervision of Doctor Fermin. <Manoj Christensen - Last Filed: 07/24/18 13:22> - Physical Exam Vital Signs Temp Pulse Resp BP Pulse Ox 98.5 F 56 L 18 131/48 H 95 07/24/18 09:09 07/24/18 11:32 07/24/18 09:09 07/24/18 09:09 07/24/18 09:09 Oxygen Flow Rate (L/min) 4 Oxygen Delivery Method Nasal Cannula Weight: 82.7 kg Body Mass Index (BMI) 28.7 Finger Stick Blood Glucose 200 Intake and Output for Last 24 Hours 07/22/18 07/23/18 07/24/18 23:59 23:59 23:59 Intake Total 240 / 240 370 / 370 Output Total 3500 / 3500 380 / 380 Balance -3260 / -3260 -10 / -10 Microbiology Past 72 Hours 07/24/18 10:30 Streptococcus pneumoniae Antigen (M - Final Urine, Clean Catch 07/24/18 10:30 Legionella Antigen - Final Urine, Clean Catch 07/24/18 08:35 Gram Stain - Final Sputum, Expectorated/Coughed Respiratory Culture - Final Laboratory Tests Past 24 Hrs 07/23/18 07/23/18 07/23/18 15:15 15:15 15:15 WBC 12.7 H RBC 3.42 L Hgb 10.4 L Hct 31.4 L MCV 91.8 MCH 30.4 MCHC 33.1 RDW 15.1 H RDW Differential 50.6 H Plt Count 167 MPV 10.0 Immature Gran % (Auto) 0.200 Neut % (Auto) 78.8 H Lymph % (Auto) 9.3 L [place] % (Auto) 10.7 H Eos % (Auto) 0.8 Baso % (Auto) 0.2 Absolute Neuts (auto) 10.0 H Absolute Lymphs (auto) 1.18 Total Counted Not Reportable Specimen Type Sample Site pH Bicarbonate Actual POC Total CO2 Base Excess O2 Saturation ABG pCO2 ABG pO2 Clay Test O2 Delivery Device Liter Flow Blood Gas Notified Whom Blood Gas Notified Time Sodium 129 L Potassium 3.0 L Chloride 91 L Carbon Dioxide 24.0 Anion Gap 14 BUN 121 H* Creatinine 3.11 H Estim Creat Clear Calc 22.60 Est GFR (MDRD) Af Amer 26 L Est GFR (MDRD) Non-Af 21 L BUN/Creatinine Ratio 38.9 H Glucose 101 Lactic Acid Calcium 8.7 Troponin I 0.064 H B-Natriuretic Peptide 2929.3 H Urine Color Urine Clarity Urine pH Ur Specific [place] Urine Protein Urine Glucose (UA) Urine Ketones Urine Occult Blood Urine Nitrite Urine Bilirubin Urine Urobilinogen Ur Leukocyte Esterase Urine RBC Urine WBC Ur Squamous Epith Cells Urine Bacteria Fine Granular Casts Urine Mucus 07/23/18 07/23/18 07/23/18 18:17 21:27 23:24 WBC RBC Hgb Hct MCV MCH MCHC RDW RDW Differential Plt Count MPV Immature Gran % (Auto) Neut % (Auto) Lymph % (Auto) [place] % (Auto) Eos % (Auto) Baso % (Auto) Absolute Neuts (auto) Absolute Lymphs (auto) Total Counted Specimen Type Sample Site pH Bicarbonate Actual POC Total CO2 Base Excess O2 Saturation ABG pCO2 ABG pO2 Clay Test O2 Delivery Device Liter Flow Blood Gas Notified Whom Blood Gas Notified Time Sodium 133 L Potassium 3.8 Chloride 96 L Carbon Dioxide 25.0 Anion Gap 12 BUN 61 H Creatinine 2.38 H Estim Creat Clear Calc 29.54 Est GFR (MDRD) Af Amer 35 L Est GFR (MDRD) Non-Af 29 L BUN/Creatinine Ratio 25.6 H Glucose 155 H Lactic Acid Calcium 8.6 Troponin I 0.062 H 0.092 H B-Natriuretic Peptide Urine Color Urine Clarity Urine pH Ur Specific [place] Urine Protein Urine Glucose (UA) Urine Ketones Urine Occult Blood Urine Nitrite Urine Bilirubin Urine Urobilinogen Ur Leukocyte Esterase Urine RBC Urine WBC Ur Squamous Epith Cells Urine Bacteria Fine Granular Casts Urine Mucus 07/24/18 07/24/18 07/24/18 03:04 04:10 04:10 WBC 16.9 H RBC 3.41 L Hgb 10.6 L Hct 32.0 L MCV 93.8 MCH 31.1 MCHC 33.1 RDW 15.1 H RDW Differential 48.9 H Plt Count 199 MPV 10.5 Immature Gran % (Auto) 0.300 Neut % (Auto) 86.6 H Lymph % (Auto) 6.4 L [place] % (Auto) 6.2 Eos % (Auto) 0.3 Baso % (Auto) 0.2 Absolute Neuts (auto) 14.7 H Absolute Lymphs (auto) 1.08 Total Counted Not Reportable Specimen Type ART Sample Site L Radial pH 7.49 H Bicarbonate Actual 26.6 H POC Total CO2 28 Base Excess 3 H O2 Saturation 94 L ABG pCO2 35.4 ABG pO2 65 L Clay Test POS O2 Delivery Device Nasal Can Liter Flow 5.0 Blood Gas Notified Whom [facility] Blood Gas Notified Time 257 Sodium 135 L Potassium 3.7 Chloride 98 Carbon Dioxide 25.0 Anion Gap 12 BUN 71 H Creatinine 2.80 H Estim Creat Clear Calc 25.11 Est GFR (MDRD) Af Amer 29 L Est GFR (MDRD) Non-Af 24 L BUN/Creatinine Ratio 25.4 H Glucose 151 H Lactic Acid Calcium 8.3 L Troponin I B-Natriuretic Peptide Urine Color Urine Clarity Urine pH Ur Specific [place] Urine Protein Urine Glucose (UA) Urine Ketones Urine Occult Blood Urine Nitrite Urine Bilirubin Urine Urobilinogen Ur Leukocyte Esterase Urine RBC Urine WBC Ur Squamous Epith Cells Urine Bacteria Fine Granular Casts Urine Mucus 07/24/18 07/24/18 04:10 10:30 WBC RBC Hgb Hct MCV MCH MCHC RDW RDW Differential Plt Count MPV Immature Gran % (Auto) Neut % (Auto) Lymph % (Auto) [place] % (Auto) Eos % (Auto) Baso % (Auto) Absolute Neuts (auto) Absolute Lymphs (auto) Total Counted Specimen Type Sample Site pH Bicarbonate Actual POC Total CO2 Base Excess O2 Saturation ABG pCO2 ABG pO2 Clay Test O2 Delivery Device Liter Flow Blood Gas Notified Whom Blood Gas Notified Time Sodium Potassium Chloride Carbon Dioxide Anion Gap BUN Creatinine Estim Creat Clear Calc Est GFR (MDRD) Af Amer Est GFR (MDRD) Non-Af BUN/Creatinine Ratio Glucose Lactic Acid 0.5 Calcium Troponin I B-Natriuretic Peptide Urine Color Yellow Urine Clarity Sl. Cloudy Urine pH 5.0 Ur Specific [place] 1.015 Urine Protein 30 H Urine Glucose (UA) Normal Urine Ketones Negative Urine Occult Blood 10 H Urine Nitrite Negative Urine Bilirubin 1 H Urine Urobilinogen Normal Ur Leukocyte Esterase 100 H Urine RBC 0-5 SEEN Urine WBC 10-25 SEEN Ur Squamous Epith Cells 0-5 SEEN Urine Bacteria 1+ Fine Granular Casts 0-5 SEEN Urine Mucus 0 SEEN Assessment/Plan This patient was seen in conjunction with Itz Bennett PA-C. I have independently interviewed and examined the patient and reviewed pertinent historical, laboratory, and other data. Please refer to Itz Bennett PA-C note for details of this patient's presentation, findings, and recommendations. I have reviewed Itz Bennett PA-C note and concur with documented findings. In brief, she is a 67-year-old gentleman with history of end-stage renal disease on hemodialysis who was being weaned off dialysis however presented with increasing weight gain as well as generalized edema and assessment of acute diastolic congestive heart failure made admitted to a monitored bed for subsequent management 07/24/2018: Patient developed fever as well as leukocytosis chest x-ray consistent with infiltrate (healthcare acquired pneumonia 26. Urinalysis also did show some pyuria antibiotics initiated per protocol; plans to discharge patient home discontinued (as well as Physical Examination: GENERAL: cooperative HEENT: Atraumatic; EYES; Anicteric, Normal Conjunctiva NECK; supple, normal thyroid, RESPIRATORY: Diminished to auscultation bilaterally, CARDIOVASCULAR: Regular S1 S2, GI: soft, non-tender, normoactive bowel sounds, : No Renal angle tenderness; No grider EXTREMITIES: 2+ pitting edema PSYCH; Normal affect Assessment: 1. Acute hypoxic respiratory failure secondary to CHF 2. Acute diastolic congestive heart failure EF 50% 3. Healthcare associated pneumonia 4. Acute cystitis 5. End-stage renal disease on dialysis 6. CAD with previous [place] status post CABG and stent placement 7. Previous history of CVA 8. BPH 9. Carotid artery stenosis 10. Essential hypertension 11. DVT prophylaxis SC heparin Recommendations: 1. I have discussed the results of my overview and impressions with the patient 2. Options for management were reviewed Clinical Impression(s) from Imaging Studies Chest X-Ray 07/23/18 15:06 IMPRESSION: Findings are suspicious for interval development of bilateral effusions pulmonary edema. Cardiomegaly status post sternotomy. Electronically Signed: Stephanie Martínez MD at 15:42 EDT Tel , Service support , Chest X-Ray 07/24/18 08:13 IMPRESSION: 1. Right posterior lung base pneumonia, new when compared to 07/23/2018. 2. Clearing of mild pulmonary vascular congestion and bilateral pleural fluid. Electronically Signed: Jaya Bailon MD at 9:22 EDT , Service support , Active Medications Acetaminophen (Tylenol) 650 mg PO Q6H PRN PRN PRN Reason: Mild Pain (scale 0-3)/T>100.7 Last Admin: 07/24/18 03:52 Dose: 650 mg Albuterol Sulfate (Ventolin Aerosols) 2.5 mg INHALATION Q4H PRN PRN Reason: SHORTNESS OF BREATH Last Admin: 07/24/18 07:12 Dose: 2.5 mg Albuterol/Ipratropium (Duoneb) 3 ml INHALATION Q6HWA.RT [facility] Last Admin: 07/24/18 13:11 Dose: 3 ml Amlodipine Besylate (Norvasc) 10 mg PO DAILY [facility] Last Admin: 07/24/18 09:13 Dose: 10 mg Aspirin (Ecotrin) 81 mg PO DAILY@0800 [facility] Last Admin: 07/24/18 09:14 Dose: 81 mg Atorvastatin Calcium (Lipitor) 80 mg PO QHS [facility] Last Admin: 07/23/18 22:21 Dose: 80 mg Carvedilol (Coreg) 25 mg PO BID [facility] Last Admin: 07/24/18 09:13 Dose: 25 mg Clopidogrel Bisulfate (Plavix) 75 mg PO DAILY [facility] Last Admin: 07/24/18 09:13 Dose: 75 mg Ferrous Sulfate (Ferrous Sulfate) 325 mg PO BIDCM [facility] Last Admin: 07/24/18 09:13 Dose: 325 mg Finasteride (Proscar) 5 mg PO DAILY [facility] Last Admin: 07/24/18 09:17 Dose: 5 mg Furosemide (Lasix) 40 mg IV BIDLX [facility] Last Admin: 07/23/18 17:33 Dose: 40 mg Guaifenesin (Mucinex) 1,200 mg PO BID [facility] Heparin Sodium (Porcine) (Heparin Na) 5,000 unit SC Q12 [facility] Last Admin: 07/24/18 09:12 Dose: 5,000 unit Levofloxacin (Levaquin Iv) 750 mg in 150 mls @ 100 mls/hr IV X1 ONE Stop: 07/24/18 13:59 Last Admin: 07/24/18 12:47 Dose: 100 mls/hr Isosorbide Mononitrate (Imdur) 30 mg PO DAILY [facility] Last Admin: 07/24/18 09:13 Dose: 30 mg Lactulose (Chronulac, Cephulac) 10 gm PO DAILY [facility] Last Admin: 07/24/18 09:16 Dose: 10 gm Magnesium Hydroxide (Milk Of Magnesia) 30 ml PO DAILY PRN PRN Reason: Constipation Metolazone (Zaroxolyn) 5 mg PO DAILY PRN PRN Reason: other Nutritional Formula (Nepro Carb Steady) 120 ml PO 4X/DAY [facility] Last Admin: 07/24/18 13:15 Dose: 120 ml Ondansetron HCl (Zofran) 4 mg IV Q8H PRN PRN PRN Reason: Nausea Potassium Chloride (K-Dur) 10 meq PO DAILY [facility] Last Admin: 07/24/18 09:17 Dose: 10 meq Potassium Chloride (K-Dur) 20 meq PO QHS [facility] Last Admin: 07/23/18 22:22 Dose: 20 meq Potassium Chloride (K-Dur) 10 meq PO DAILY PRN PRN Reason: ON DAYS THAT TAKES METOLAZONE Pramipexole Dihydrochloride (Mirapex) 0.5 mg PO QHS [facility] Last Admin: 07/23/18 22:21 Dose: 0.5 mg Sodium Chloride () 5 - 30 ml IV UD PRN PRN Reason: SALINE FLUSH Last Admin: 07/24/18 12:54 Dose: 10 ml Tamsulosin HCl (Flomax) 0.4 mg PO DAILY@1730 [facility] Last Admin: 07/23/18 18:47 Dose: Not Given Code Visit Inpatient E&M: [id number] [facility] L[facility]
--- NOTE | 2018-07-24 11:08 | PN_ITS ---
<Itz Bennett - Last Filed: 07/24/18 11:04> Patient Problems: Active and Suspected Problems (Last Reviewed 07/23/18 @ 17:20 by Chris Stark DO) DAI (acute kidney injury) (Acute) Subjective: Placed on CPAP overnight. cough continues, increased O2 demand continues. SOB and edema improved since dialysis last night. Next dialysis today. Plans to resume dialysis as outpatient. Fever 102 overnight. No significant urinary retention on post void. did produce some urine, feels he is emptying better. - Physical Exam General: Alert, Oriented x3, Cooperative HEENT: Atraumatic, PERRLA, EOMI, Normocephalic Neck: Supple, No JVD, Negative Carotid Bruits Lungs: Diminished, Rales, Wheezes Cardiovascular: Regular rate, No murmurs Abdomen: Bowel Sounds Present, Soft, Non Tender Extremities: No edema, Capillary Refill Less than 3 Seconds Skin: No rashes, No breakdown Musculoskeletal: No Tenderness to Palpation of Joints or Extremities Neurological: Cranial nerves II-XII grossly intact Psych/Mental Status: Normal Affect, Appropriate Vital Signs Temp Pulse Resp BP Pulse Ox 98.5 F 60 18 131/48 H 95 07/24/18 09:09 07/24/18 09:09 07/24/18 09:09 07/24/18 09:09 07/24/18 09:09 Oxygen Flow Rate (L/min) 4 Oxygen Delivery Method Nasal Cannula Weight: 182 lb 5.156 oz Body Mass Index (BMI) 28.7 Finger Stick Blood Glucose 200 Intake and Output for Last 24 Hours 07/22/18 07/23/18 07/24/18 23:59 23:59 23:59 Intake Total 240 / 240 120 / 120 Output Total 3500 / 3500 190 / 190 Balance -3260 / -3260 -70 / -70 Microbiology Past 72 Hours 07/24/18 08:35 Gram Stain - Final Sputum, Expectorated/Coughed Respiratory Culture - Final Laboratory Tests Past 24 Hrs 07/23/18 07/23/18 07/23/18 15:15 15:15 15:15 WBC 12.7 H RBC 3.42 L Hgb 10.4 L Hct 31.4 L MCV 91.8 MCH 30.4 MCHC 33.1 RDW 15.1 H RDW Differential 50.6 H Plt Count 167 MPV 10.0 Immature Gran % (Auto) 0.200 Neut % (Auto) 78.8 H Lymph % (Auto) 9.3 L Bailey % (Auto) 10.7 H Eos % (Auto) 0.8 Baso % (Auto) 0.2 Absolute Neuts (auto) 10.0 H Absolute Lymphs (auto) 1.18 Total Counted Not Reportable Specimen Type Sample Site pH Bicarbonate Actual POC Total CO2 Base Excess O2 Saturation ABG pCO2 ABG pO2 Clay Test O2 Delivery Device Liter Flow Blood Gas Notified Whom Blood Gas Notified Time Sodium 129 L Potassium 3.0 L Chloride 91 L Carbon Dioxide 24.0 Anion Gap 14 BUN 121 H* Creatinine 3.11 H Estim Creat Clear Calc 22.60 Est GFR (MDRD) Af Amer 26 L Est GFR (MDRD) Non-Af 21 L BUN/Creatinine Ratio 38.9 H Glucose 101 Lactic Acid Calcium 8.7 Troponin I 0.064 H B-Natriuretic Peptide 2929.3 H Urine Color Urine Clarity Urine pH Ur Specific [place] Urine Protein Urine Glucose (UA) Urine Ketones Urine Occult Blood Urine Nitrite Urine Bilirubin Urine Urobilinogen Ur Leukocyte Esterase Urine RBC Urine WBC Ur Squamous Epith Cells Urine Bacteria Urine Mucus 07/23/18 07/23/18 07/23/18 18:17 21:27 23:24 WBC RBC Hgb Hct MCV MCH MCHC RDW RDW Differential Plt Count MPV Immature Gran % (Auto) Neut % (Auto) Lymph % (Auto) Bailey % (Auto) Eos % (Auto) Baso % (Auto) Absolute Neuts (auto) Absolute Lymphs (auto) Total Counted Specimen Type Sample Site pH Bicarbonate Actual POC Total CO2 Base Excess O2 Saturation ABG pCO2 ABG pO2 Clay Test O2 Delivery Device Liter Flow Blood Gas Notified Whom Blood Gas Notified Time Sodium 133 L Potassium 3.8 Chloride 96 L Carbon Dioxide 25.0 Anion Gap 12 BUN 61 H Creatinine 2.38 H Estim Creat Clear Calc 29.54 Est GFR (MDRD) Af Amer 35 L Est GFR (MDRD) Non-Af 29 L BUN/Creatinine Ratio 25.6 H Glucose 155 H Lactic Acid Calcium 8.6 Troponin I 0.062 H 0.092 H B-Natriuretic Peptide Urine Color Urine Clarity Urine pH Ur Specific [place] Urine Protein Urine Glucose (UA) Urine Ketones Urine Occult Blood Urine Nitrite Urine Bilirubin Urine Urobilinogen Ur Leukocyte Esterase Urine RBC Urine WBC Ur Squamous Epith Cells Urine Bacteria Urine Mucus 07/24/18 07/24/18 07/24/18 03:04 04:10 04:10 WBC 16.9 H RBC 3.41 L Hgb 10.6 L Hct 32.0 L MCV 93.8 MCH 31.1 MCHC 33.1 RDW 15.1 H RDW Differential 48.9 H Plt Count 199 MPV 10.5 Immature Gran % (Auto) 0.300 Neut % (Auto) 86.6 H Lymph % (Auto) 6.4 L Bailey % (Auto) 6.2 Eos % (Auto) 0.3 Baso % (Auto) 0.2 Absolute Neuts (auto) 14.7 H Absolute Lymphs (auto) 1.08 Total Counted Not Reportable Specimen Type ART Sample Site L Radial pH 7.49 H Bicarbonate Actual 26.6 H POC Total CO2 28 Base Excess 3 H O2 Saturation 94 L ABG pCO2 35.4 ABG pO2 65 L Clay Test POS O2 Delivery Device Nasal Can Liter Flow 5.0 Blood Gas Notified Whom [facility] Blood Gas Notified Time 257 Sodium 135 L Potassium 3.7 Chloride 98 Carbon Dioxide 25.0 Anion Gap 12 BUN 71 H Creatinine 2.80 H Estim Creat Clear Calc 25.11 Est GFR (MDRD) Af Amer 29 L Est GFR (MDRD) Non-Af 24 L BUN/Creatinine Ratio 25.4 H Glucose 151 H Lactic Acid Calcium 8.3 L Troponin I B-Natriuretic Peptide Urine Color Urine Clarity Urine pH Ur Specific [place] Urine Protein Urine Glucose (UA) Urine Ketones Urine Occult Blood Urine Nitrite Urine Bilirubin Urine Urobilinogen Ur Leukocyte Esterase Urine RBC Urine WBC Ur Squamous Epith Cells Urine Bacteria Urine Mucus 07/24/18 07/24/18 04:10 10:30 WBC RBC Hgb Hct MCV MCH MCHC RDW RDW Differential Plt Count MPV Immature Gran % (Auto) Neut % (Auto) Lymph % (Auto) Bailey % (Auto) Eos % (Auto) Baso % (Auto) Absolute Neuts (auto) Absolute Lymphs (auto) Total Counted Specimen Type Sample Site pH Bicarbonate Actual POC Total CO2 Base Excess O2 Saturation ABG pCO2 ABG pO2 Clay Test O2 Delivery Device Liter Flow Blood Gas Notified Whom Blood Gas Notified Time Sodium Potassium Chloride Carbon Dioxide Anion Gap BUN Creatinine Estim Creat Clear Calc Est GFR (MDRD) Af Amer Est GFR (MDRD) Non-Af BUN/Creatinine Ratio Glucose Lactic Acid 0.5 Calcium Troponin I B-Natriuretic Peptide Urine Color Yellow Urine Clarity Sl. Cloudy Urine pH 5.0 Ur Specific [place] 1.015 Urine Protein 30 H Urine Glucose (UA) Normal Urine Ketones Negative Urine Occult Blood 10 H Urine Nitrite Negative Urine Bilirubin 1 H Urine Urobilinogen Normal Ur Leukocyte Esterase 100 H Urine RBC Pending Urine WBC Pending Ur Squamous Epith Cells Pending Urine Bacteria Pending Urine Mucus Pending Medical Necessity - Tobacco Use Smoking Status: Light Smoker (<10/day) Tobacco Use: Cigarettes Assessment/Plan All Active Problems (Last Reviewed 07/23/18 @ 17:20 by Chris Stark DO) DAI (acute kidney injury) (Acute) S/P dialysis catheter insertion (Acute 05/22/18) History of thoracentesis (Acute 05/22/18) Acute renal failure superimposed on chronic kidney disease (Acute) Acute respiratory failure with hypoxia (Acute) Diastolic CHF (Acute) 1. Acute hypoxic respiratory failure 2/2 acute diastolic CHF exacerbation - last EF 50% this year. Improved with dialysis. Continue I/O, fluid / sodium restriction. 2. HCAP - worsened leukocytosis, fever overnight + RLL infiltrate on CXR today with clearing of CHF. Start IV levaquin for HCAP (dialysis pt). Check urine ag, sputum, start pep, mucinex, IS. 3. DAI on CKDIV/V - [place] following. Continue dialysis as directed. 4. CAD - prior CABG/Stents/MD - continue other home meds - coreg, asa, statin, plavix, imdur 5. BPH - follows Daisy, plans for radiation therapy. Continue Proscar/Flomax. No significant retention. 6. Hx CVA - asa/statin/plavix 7. HTN - elevated, monitor with diuresis, prn hydralazine 8. Chronic constipation - continue prn lactulose 9. Carotid stenosis - o/p follow up with Dr. Lua for surgery 10. Ventral hernia - no acute issues DVT ppx: heparin DC planning: may need to go back on O2 at home (been off recently). This patient was seen by Itz Bennett PA-C under the supervision of Doctor Fermin. <Manoj Christensen - Last Filed: 07/24/18 13:22> - Physical Exam Vital Signs Temp Pulse Resp BP Pulse Ox 98.5 F 56 L 18 131/48 H 95 07/24/18 09:09 07/24/18 11:32 07/24/18 09:09 07/24/18 09:09 07/24/18 09:09 Oxygen Flow Rate (L/min) 4 Oxygen Delivery Method Nasal Cannula Weight: 82.7 kg Body Mass Index (BMI) 28.7 Finger Stick Blood Glucose 200 Intake and Output for Last 24 Hours 07/22/18 07/23/18 07/24/18 23:59 23:59 23:59 Intake Total 240 / 240 370 / 370 Output Total 3500 / 3500 380 / 380 Balance -3260 / -3260 -10 / -10 Microbiology Past 72 Hours 07/24/18 10:30 Streptococcus pneumoniae Antigen (M - Final Urine, Clean Catch 07/24/18 10:30 Legionella Antigen - Final Urine, Clean Catch 07/24/18 08:35 Gram Stain - Final Sputum, Expectorated/Coughed Respiratory Culture - Final Laboratory Tests Past 24 Hrs 07/23/18 07/23/18 07/23/18 15:15 15:15 15:15 WBC 12.7 H RBC 3.42 L Hgb 10.4 L Hct 31.4 L MCV 91.8 MCH 30.4 MCHC 33.1 RDW 15.1 H RDW Differential 50.6 H Plt Count 167 MPV 10.0 Immature Gran % (Auto) 0.200 Neut % (Auto) 78.8 H Lymph % (Auto) 9.3 L Bailey % (Auto) 10.7 H Eos % (Auto) 0.8 Baso % (Auto) 0.2 Absolute Neuts (auto) 10.0 H Absolute Lymphs (auto) 1.18 Total Counted Not Reportable Specimen Type Sample Site pH Bicarbonate Actual POC Total CO2 Base Excess O2 Saturation ABG pCO2 ABG pO2 Clay Test O2 Delivery Device Liter Flow Blood Gas Notified Whom Blood Gas Notified Time Sodium 129 L Potassium 3.0 L Chloride 91 L Carbon Dioxide 24.0 Anion Gap 14 BUN 121 H* Creatinine 3.11 H Estim Creat Clear Calc 22.60 Est GFR (MDRD) Af Amer 26 L Est GFR (MDRD) Non-Af 21 L BUN/Creatinine Ratio 38.9 H Glucose 101 Lactic Acid Calcium 8.7 Troponin I 0.064 H B-Natriuretic Peptide 2929.3 H Urine Color Urine Clarity Urine pH Ur Specific [place] Urine Protein Urine Glucose (UA) Urine Ketones Urine Occult Blood Urine Nitrite Urine Bilirubin Urine Urobilinogen Ur Leukocyte Esterase Urine RBC Urine WBC Ur Squamous Epith Cells Urine Bacteria Fine Granular Casts Urine Mucus 07/23/18 07/23/18 07/23/18 18:17 21:27 23:24 WBC RBC Hgb Hct MCV MCH MCHC RDW RDW Differential Plt Count MPV Immature Gran % (Auto) Neut % (Auto) Lymph % (Auto) Bailey % (Auto) Eos % (Auto) Baso % (Auto) Absolute Neuts (auto) Absolute Lymphs (auto) Total Counted Specimen Type Sample Site pH Bicarbonate Actual POC Total CO2 Base Excess O2 Saturation ABG pCO2 ABG pO2 Clay Test O2 Delivery Device Liter Flow Blood Gas Notified Whom Blood Gas Notified Time Sodium 133 L Potassium 3.8 Chloride 96 L Carbon Dioxide 25.0 Anion Gap 12 BUN 61 H Creatinine 2.38 H Estim Creat Clear Calc 29.54 Est GFR (MDRD) Af Amer 35 L Est GFR (MDRD) Non-Af 29 L BUN/Creatinine Ratio 25.6 H Glucose 155 H Lactic Acid Calcium 8.6 Troponin I 0.062 H 0.092 H B-Natriuretic Peptide Urine Color Urine Clarity Urine pH Ur Specific [place] Urine Protein Urine Glucose (UA) Urine Ketones Urine Occult Blood Urine Nitrite Urine Bilirubin Urine Urobilinogen Ur Leukocyte Esterase Urine RBC Urine WBC Ur Squamous Epith Cells Urine Bacteria Fine Granular Casts Urine Mucus 07/24/18 07/24/18 07/24/18 03:04 04:10 04:10 WBC 16.9 H RBC 3.41 L Hgb 10.6 L Hct 32.0 L MCV 93.8 MCH 31.1 MCHC 33.1 RDW 15.1 H RDW Differential 48.9 H Plt Count 199 MPV 10.5 Immature Gran % (Auto) 0.300 Neut % (Auto) 86.6 H Lymph % (Auto) 6.4 L Bailey % (Auto) 6.2 Eos % (Auto) 0.3 Baso % (Auto) 0.2 Absolute Neuts (auto) 14.7 H Absolute Lymphs (auto) 1.08 Total Counted Not Reportable Specimen Type ART Sample Site L Radial pH 7.49 H Bicarbonate Actual 26.6 H POC Total CO2 28 Base Excess 3 H O2 Saturation 94 L ABG pCO2 35.4 ABG pO2 65 L Clay Test POS O2 Delivery Device Nasal Can Liter Flow 5.0 Blood Gas Notified Whom [facility] Blood Gas Notified Time 257 Sodium 135 L Potassium 3.7 Chloride 98 Carbon Dioxide 25.0 Anion Gap 12 BUN 71 H Creatinine 2.80 H Estim Creat Clear Calc 25.11 Est GFR (MDRD) Af Amer 29 L Est GFR (MDRD) Non-Af 24 L BUN/Creatinine Ratio 25.4 H Glucose 151 H Lactic Acid Calcium 8.3 L Troponin I B-Natriuretic Peptide Urine Color Urine Clarity Urine pH Ur Specific [place] Urine Protein Urine Glucose (UA) Urine Ketones Urine Occult Blood Urine Nitrite Urine Bilirubin Urine Urobilinogen Ur Leukocyte Esterase Urine RBC Urine WBC Ur Squamous Epith Cells Urine Bacteria Fine Granular Casts Urine Mucus 07/24/18 07/24/18 04:10 10:30 WBC RBC Hgb Hct MCV MCH MCHC RDW RDW Differential Plt Count MPV Immature Gran % (Auto) Neut % (Auto) Lymph % (Auto) Bailey % (Auto) Eos % (Auto) Baso % (Auto) Absolute Neuts (auto) Absolute Lymphs (auto) Total Counted Specimen Type Sample Site pH Bicarbonate Actual POC Total CO2 Base Excess O2 Saturation ABG pCO2 ABG pO2 Clay Test O2 Delivery Device Liter Flow Blood Gas Notified Whom Blood Gas Notified Time Sodium Potassium Chloride Carbon Dioxide Anion Gap BUN Creatinine Estim Creat Clear Calc Est GFR (MDRD) Af Amer Est GFR (MDRD) Non-Af BUN/Creatinine Ratio Glucose Lactic Acid 0.5 Calcium Troponin I B-Natriuretic Peptide Urine Color Yellow Urine Clarity Sl. Cloudy Urine pH 5.0 Ur Specific [place] 1.015 Urine Protein 30 H Urine Glucose (UA) Normal Urine Ketones Negative Urine Occult Blood 10 H Urine Nitrite Negative Urine Bilirubin 1 H Urine Urobilinogen Normal Ur Leukocyte Esterase 100 H Urine RBC 0-5 SEEN Urine WBC 10-25 SEEN Ur Squamous Epith Cells 0-5 SEEN Urine Bacteria 1+ Fine Granular Casts 0-5 SEEN Urine Mucus 0 SEEN Assessment/Plan This patient was seen in conjunction with Itz Bennett PA-C. I have independently interviewed and examined the patient and reviewed pertinent his torical, laboratory, and other data. Please refer to Itz Bennett PA-C note for details of this patient's presentation, findings, and recommendations. I have reviewed Itz Bennett PA-C note and concur with documented findings. In brief, she is a 67-year-old gentleman with history of end-stage renal disease on hemodialysis who was being weaned off dialysis however presented with increasing weight gain as well as generalized edema and assessment of acute diastolic congestive heart failure made admitted to a monitored bed for subsequent management 07/24/2018: Patient developed fever as well as leukocytosis chest x-ray consistent with infiltrate (healthcare acquired pneumonia 26. Urinalysis also did show some pyuria antibiotics initiated per protocol; plans to discharge patient home discontinued (as well as Physical Examination: GENERAL: cooperative HEENT: Atraumatic; EYES; Anicteric, Normal Conjunctiva NECK; supple, normal thyroid, RESPIRATORY: Diminished to auscultation bilaterally, CARDIOVASCULAR: Regular S1 S2, GI: soft, non-tender, normoactive bowel sounds, : No Renal angle tenderness; No grider EXTREMITIES: 2+ pitting edema PSYCH; Normal affect Assessment: 1. Acute hypoxic respiratory failure secondary to CHF 2. Acute diastolic congestive heart failure EF 50% 3. Healthcare associated pneumonia 4. Acute cystitis 5. End-stage renal disease on dialysis 6. CAD with previous MD status post CABG and stent placement 7. Previous history of CVA 8. BPH 9. Carotid artery stenosis 10. Essential hypertension 11. DVT prophylaxis SC heparin Recommendations: 1. I have discussed the results of my overview and impressions with the patient 2. Options for management were reviewed Clinical Impression(s) from Imaging Studies Chest X-Ray 07/23/18 15:06 IMPRESSION: Findings are suspicious for interval development of bilateral effusions pulmonary edema. Cardiomegaly status post sternotomy. Electronically Signed: Stephanie Martínez MD at 15:42 EDT Tel , Service support , Chest X-Ray 07/24/18 08:13 IMPRESSION: 1. Right posterior lung base pneumonia, new when compared to 07/23/2018. 2. Clearing of mild pulmonary vascular congestion and bilateral pleural fluid. Electronically Signed: Jaya Bailon MD at 9:22 EDT , Service support , Active Medications Acetaminophen (Tylenol) 650 mg PO Q6H PRN PRN PRN Reason: Mild Pain (scale 0-3)/T>100.7 Last Admin: 07/24/18 03:52 Dose: 650 mg Albuterol Sulfate (Ventolin Aerosols) 2.5 mg INHALATION Q4H PRN PRN Reason: SHORTNESS OF BREATH Last Admin: 07/24/18 07:12 Dose: 2.5 mg Albuterol/Ipratropium (Duoneb) 3 ml INHALATION Q6HWA.RT [facility] Last Admin: 07/24/18 13:11 Dose: 3 ml Amlodipine Besylate (Norvasc) 10 mg PO DAILY [facility] Last Admin: 07/24/18 09:13 Dose: 10 mg Aspirin (Ecotrin) 81 mg PO DAILY@0800 [facility] Last Admin: 07/24/18 09:14 Dose: 81 mg Atorvastatin Calcium (Lipitor) 80 mg PO QHS [facility] Last Admin: 07/23/18 22:21 Dose: 80 mg Carvedilol (Coreg) 25 mg PO BID [facility] Last Admin: 07/24/18 09:13 Dose: 25 mg Clopidogrel Bisulfate (Plavix) 75 mg PO DAILY [facility] Last Admin: 07/24/18 09:13 Dose: 75 mg Ferrous Sulfate (Ferrous Sulfate) 325 mg PO BIDCM [facility] Last Admin: 07/24/18 09:13 Dose: 325 mg Finasteride (Proscar) 5 mg PO DAILY [facility] Last Admin: 07/24/18 09:17 Dose: 5 mg Furosemide (Lasix) 40 mg IV BIDLX [facility] Last Admin: 07/23/18 17:33 Dose: 40 mg Guaifenesin (Mucinex) 1,200 mg PO BID [facility] Heparin Sodium (Porcine) (Heparin Na) 5,000 unit SC Q12 [facility] Last Admin: 07/24/18 09:12 Dose: 5,000 unit Levofloxacin (Levaquin Iv) 750 mg in 150 mls @ 100 mls/hr IV X1 ONE Stop: 07/24/18 13:59 Last Admin: 07/24/18 12:47 Dose: 100 mls/hr Isosorbide Mononitrate (Imdur) 30 mg PO DAILY [facility] Last Admin: 07/24/18 09:13 Dose: 30 mg Lactulose (Chronulac, Cephulac) 10 gm PO DAILY [facility] Last Admin: 07/24/18 09:16 Dose: 10 gm Magnesium Hydroxide (Milk Of Magnesia) 30 ml PO DAILY PRN PRN Reason: Constipation Metolazone (Zaroxolyn) 5 mg PO DAILY PRN PRN Reason: other Nutritional Formula (Nepro Carb Steady) 120 ml PO 4X/DAY [facility] Last Admin: 07/24/18 13:15 Dose: 120 ml Ondansetron HCl (Zofran) 4 mg IV Q8H PRN PRN PRN Reason: Nausea Potassium Chloride (K-Dur) 10 meq PO DAILY [facility] Last Admin: 07/24/18 09:17 Dose: 10 meq Potassium Chloride (K-Dur) 20 meq PO QHS [facility] Last Admin: 07/23/18 22:22 Dose: 20 meq Potassium Chloride (K-Dur) 10 meq PO DAILY PRN PRN Reason: ON DAYS THAT TAKES METOLAZONE Pramipexole Dihydrochloride (Mirapex) 0.5 mg PO QHS [facility] Last Admin: 07/23/18 22:21 Dose: 0.5 mg Sodium Chloride () 5 - 30 ml IV UD PRN PRN Reason: SALINE FLUSH Last Admin: 07/24/18 12:54 Dose: 10 ml Tamsulosin HCl (Flomax) 0.4 mg PO DAILY@1730 [facility] Last Admin: 07/23/18 18:47 Dose: Not Given Code Visit Inpatient E&M: 44311 Subs Hosp L3
[2018-07-24] MEDS: levoFLOXacin IV 750 MG/150 ML BAG 100 MG IV (12:47)
[2018-07-24] MEDS: Ipratropium/Albuterol Sulfate 3 ML AMPUL.NEB INHALATION ×2 (13:11→19:00)
[2018-07-24] MEDS: Nepro Liquid 120 ML LIQUID PO ×2 (13:15→21:40)
[2018-07-24] MEDS: Furosemide 40 MG/4 ML Vial IV (19:53)
[2018-07-24] MEDS: Pramipexole Di-HCl 0.5 MG Tablet PO (19:53)
[2018-07-24] MEDS: Tamsulosin HCl 0.4 MG Capsule PO (19:53)
--- NOTE | 2018-07-24 21:35 | CPS ---
PT DOESNT WANT TO WEAR CPAP TONIGHT.
[2018-07-24] MEDS: Atorvastatin Calcium 80 MG Tablet PO (21:36)
[2018-07-24] MEDS: guaiFENesin 1,200 MG Tablet 1200 MG PO (21:36)
[2018-07-24] MEDS: traMADol 50 MG Tablet PO (22:12)
[2018-07-25 02:00] VITALS: BP 125/58; PULSE 59; RESP 14; TEMP 36.4; O2SAT 98
[2018-07-25 03:00] VITALS: PULSE 56
[2018-07-25 06:37] LABS: Absolute Lymphocyte Count 1.03 X10^3/ul (0.83-4.51); Absolute Neutrophil Count 10.4 X10^3/uL (2.0-7.7); Basophil# 0.01 X10^3/uL; Basophil% 0.1 % (0-1); Eosinophil# 0.05 X10^3/uL; Eosinophils% 0.4 % (0-5); Hematocrit 31.5 % (40-54); Lymphocyte # 1.03 X10^3/ul (4.0); Lymphocyte % 8.1 % (19-41); Mean Corp Hgb Conc 31.7 g/gl (32-36); Mean Corpuscular Hgb 30.6 pg (27.0-32.0); Mean Corpuscular Volume 96.3 fL (80-94); Mean Platelet Vol. 10.6 fl (6.2-12.0); Monocyte% 8.7 % (0-10); Neutrophil # 10.43 X10^3/uL (2.7-7.7); Neutrophil % 82.4 % (47-70); Platelet Count 178 K/mm3 (150-450); RBC Distribution Width SD 50.1 fl (35.1-43.9); Red Blood Count 3.27 M/mm3 (4.6-6.2); White Blood Count 12.7 K/mm3 (4.4-11.0)
[2018-07-25 06:38] LABS: POSITIVE COUNT NO; POSITIVE DIFFERENTIAL NO; POSITIVE MORPHOLOGY NO
[2018-07-25 06:49] VITALS: PULSE 68; RESP 16; O2SAT 96
[2018-07-25 06:49] LABS: Anion Gap 10 (5-15); BUN 50 mg/dL (7-18); BUN/Creat Ratio 18.9 RATIO (10-20); Calcium,Total 8.6 mg/dL (8.5-10.1); Chloride 97 mmol/L (98-107); Creatinine, Serum 2.64 mg/dL (0.70-1.30); EST Glomerular Filtration Rate 26 mL/min (>60); Est Glom Filt Rate - Afr Amer 31 mL/min (>60); Estimated Creatinine Clearance 26.63 ml/min; Glucose 113 mg/dL (74-106); Potassium 4.3 mmol/L (3.5-5.1); Sodium Level 133 mmol/L (136-145)
[2018-07-25] MEDS: Ipratropium/Albuterol Sulfate 3 ML AMPUL.NEB INHALATION (06:49)
[2018-07-25 07:23] VITALS: PULSE 61
[2018-07-25 08:33] VITALS: BP 153/86; PULSE 63; RESP 18; TEMP 36.7; O2SAT 93
[2018-07-25] MEDS: Lactulose 20 GM/30 ML UDC 10 GM PO (08:38)
[2018-07-25] MEDS: Heparin Injection (Vial) 5,000 UNIT/ML VIAL 5000 UNIT SC (08:38)
[2018-07-25] MEDS: Carvedilol 25 MG Tablet PO (08:38)
[2018-07-25] MEDS: Furosemide 40 MG/4 ML Vial IV (08:38)
[2018-07-25] MEDS: Isosorbide Mononitrate 30 MG Tablet PO (08:39)
[2018-07-25] MEDS: guaiFENesin 1,200 MG Tablet 1200 MG PO (08:39)
[2018-07-25] MEDS: Ferrous Sulfate 325 MG Tablet PO (08:39)
[2018-07-25] MEDS: Aspirin E.C. 81 MG Tablet PO (08:39)
[2018-07-25] MEDS: Finasteride 5 MG Tablet PO (08:39)
[2018-07-25] MEDS: Clopidogrel Bisulfate 75 MG Tablet PO (08:39)
[2018-07-25] MEDS: 0.9% NaCl Peripheral Flush Adult/Peds IV (08:39)
[2018-07-25] MEDS: amLODIPine 10 MG Tablet PO (08:39)
[2018-07-25 11:00] VITALS: PULSE 56
--- NOTE | 2018-07-25 11:13 | DCINST_ITS ---
- Discharge Diagnoses Current Active Problems: Current Active and Chronic Problems (Last Reviewed 07/23/18 @ 17:20 by Chris Stark DO) DAI (acute kidney injury) (Acute) You will use the following diet at home:: Cardiac - <2 g sodium daily Your food should be the consistency of: Regular Your liquids should be the consistency of: Regular/Thin Discharge Activity: Return to Normal Activity Allergies/Adverse Reactions: Allergies irbesartan [From Avapro] Adverse Reaction (Severe, Verified 07/23/18 14:43) Blisters zolpidem [From Ambien] Adverse Reaction (Severe, Verified 07/23/18 14:43) made me go crazy, memory loss Medications to take at Discharge Ropinirole HCl [Requip] 1 mg PO QHS 01/28/18 Rosuvastatin Calcium [Crestor] 40 mg PO QHS 01/28/18 Finasteride [Proscar] 5 mg PO DAILY 04/08/18 Albuterol Aerosols [Ventolin Aerosols] 2.5 mg INHALATION Q4H PRN 05/10/18 Amlodipine [Norvasc] 10 mg PO DAILY 05/10/18 Carvedilol [Coreg (Beta Kadi)] 25 mg PO BID #60 tab 05/13/18 Aspirin E.C. [Ecotrin] 81 mg PO DAILY@0800 tab 05/25/18 Clopidogrel Bisulfate [Plavix] 75 mg PO DAILY #1 tab 05/25/18 Isosorbide Mononitrate [Imdur] 30 mg PO DAILY #30 tab 05/26/18 bumetanide 2 mg tablet 2 mg PO BID tab 06/29/18 Metolazone [Zaroxolyn] 1 tab PO DAILY PRN 07/05/18 Lactulose 15 ml PO DAILY PRN 07/23/18 Potassium Chloride 10 meq PO DAILY PRN 07/23/18 Potassium Chloride [Klor-Con] 20 meq PO QHS 07/23/18 Ferrous Sulfate 325 mg PO BIDCM #60 tablet 07/25/18 Levofloxacin [Levaquin] 500 mg PO Q48H #4 tablet 07/25/18 Nepro Liquid [Nepro Carb Steady] 120 ml PO 4X/DAY #1 bottle 07/25/18 Tamsulosin HCl [Flomax] 0.4 mg PO DAILY@1730 #30 capsule 07/25/18 The following prescriptions were given: Ferrous Sulfate 325 mg PO BIDCM #60 tablet Levofloxacin [Levaquin] 500 mg PO Q48H #4 tablet Nepro Liquid [Nepro Carb Steady] 120 ml PO 4X/DAY #1 bottle Tamsulosin HCl [Flomax] 0.4 mg PO DAILY@1730 #30 capsule Primary Care Physician: Tania Berger NP-C [Primary Care Provider] - Please follow up with your Primary Care Physician in: 1-2 weeks Test Results: Test results from this visit will be discussed in further detail at your follow- up appointment, if applicable. Please Follow Up With: Caleb Alaniz MD - Nephrology When: As directed Please Follow Up With: [facility] [place] - Dialysis When: Tuesday Proposed Discharge Date: 07/26/18
--- NOTE | 2018-07-25 11:56 | PHA.DC.MC ---
Pharmacy Service has performed discharge medication reconciliation and counseling for this patient. The patient's discharge medication list was reviewed for discrepancies and discrepancies were resolved. The patient was counseled on the following discharge medications and changes in medications for homegoing were reviewed. LEVOFLOXACIN The Reason for Use, instructions for use, and potential side effects were reviewed for all new medications. The patient's questions regarding all of their medications were answered. The patient was able to verbally demonstrate an understanding of their discharge medications.
--- NOTE | 2018-07-25 14:01 | PCM.DC.SUM ---
<Itz Bennett - Last Filed: 07/25/18 14:01> Discharge Date and Diagnosis Date of Admission: 07/23/18 Date of Discharge: 07/25/18 - Primary Discharge Diagnosis Acute hypoxic respiratory failure secondary to acute diastolic congestive heart failure exacerbation Acute healthcare associated pneumonia presumed gram-negative Acute kidney injury on CKD stage IV/V CAD history of CABG and stents BPH History of CVA Hypertension Chronic constipation Carotid stenosis Ventral hernia - Secondary Discharge Diagnosis Chronic Problems (Last Reviewed 07/25/18 @ 13:23 by Kamilah White) History of non-ST elevation myocardial infarction (NSTEMI) (Chronic 01/21/11) History of left heart catheterization (Chronic 01/21/11) 10/13/[address] Barrientos @ [facility]:Per Dr. Jiménez @ [facility]: CABG recommended History of right and left heart catheterization (Chronic 05/24/18) Patent NICHOLAS to LAD, SVG to 1st OM and SVG to RCA. Elevated right heart pressures, significant Diastolic dysfunction per cath done @ [facility], Dr. Barrientos Stented coronary artery (Chronic) 2003, JASON to circumflex ; 10/13/2009 tsfer from [facility] to [facility], total of 5 bare metal stents to RCA per Dr. Barrientos @ [facility]: 3.5 X 18 Concrete Laborer, followed distally by 3.0 X12 Concrete Laborer to distal RCA;3.5 X 15 Concrete Laborer, followed proximally by 4.0 X 18 Concrete Laborer to Mid RCA; 4.0 X 18 Concrete Laborer to Proximal RCA S/P CABG x 3 (Chronic 01/26/11) [facility] per Dr. Osito Hernandez: NICHOLAS to LAD, reverse SVG to OMbranch of CX, reverse SVG to PDA of RCA. PDA endarterectomy. Status post peripheral artery angioplasty with insertion of stent (Chronic ~2010) Right common iliac, [facility] Atherosclerotic heart disease of [place] coronary artery without angina pectoris (Chronic) 2003, JASON to circumflex ; 10/10/2009 tsfer from [facility] to [facility], total of 5 bare metal stents to RCA; CABG X 3 vessels @ [facility] 01/31/2011 (critical left main and restenosis of RCA stents) HLD (hyperlipidemia) (Chronic) HTN (hypertension) (Chronic) PAD (peripheral artery disease) (Chronic) COPD (chronic obstructive pulmonary disease) (Chronic) Tobacco dependence (Chronic) CKD (chronic kidney disease) (Chronic) Leukocytosis (Chronic) Anemia (Chronic) BPH (benign prostatic hyperplasia) (Chronic) Hospital Course and Treatment Imaging Results: RAD/Chest 1 View (Portable) IMPRESSION: Findings are suspicious for interval development of bilateral effusions pulmonary edema. Cardiomegaly status post sternotomy. RAD/Chest PA and Lateral IMPRESSION: 1. Right posterior lung base pneumonia, new when compared to 07/23/2018. 2. Clearing of mild pulmonary vascular congestion and bilateral pleural fluid. Consults; [place] - nephrology Operations: None Procedures: None Summary of Care Provided: Physical exam on day of discharge: General: Resting comfortably NAD Psych: A/Ox3 normal affect HEENT: [place]ARRLA AT NC Neck: Supple NT CV: RRR no m/t/r/g/h Resp:faint crackles bilateral lower noel are posteriorly Abd: [id number] Soft NT no guarding or rigidity Ext: DP2+= 2+ pitting edema bilateral lower extremities Skin: W/D normal turgor Lymph/Heme: No active bleeding or adenopathy Neuro: CN2-12 intact Hospital course: The patient is a 67 year old M with a history of diastolic congestive heart failure with a known EF of 50%, CKD stage IV/V recently discontinued from dialysis, BPH, hypertension, CAD with prior DC, CABG, stents, PAD, carotid artery stenosis with planned outpatient carotid endarterectomy with Dr. Lua, who presented to the emergency room with severe increased shortness of breath, cough, bilateral lower extremity edema, PND, orthopnea found to be in acute congestive heart failure exacerbation after stopping dialysis about a week prior. He did have an elevated white count but did not have any obvious infection at first. He was admitted to the PCU on telemetry and was dialyzed at night. He had significant improvement in shortness of breath and edema, however he continued to have a cough and white count worsened, developed a fever overnight. Follow-up chest x-ray revealed clearing of CHF however underlying pneumonia. Patient was started on Levaquin for healthcare associated pneumonia as he is a dialysis patient. He was kept one more night. He underwent a second round of dialysis with further improvement in his breathing and edema. He had no further fever and his white count improved. The following day he was placed on extended course of Levaquin for pneumonia and advised to continue to be dialyzed on his previous schedule with Dr. Alaniz. He was discharged home in stable condition. Follow-up with PCP in 1-2 weeks, Dr. Alaniz as directed, dialysis tomorrow. At this time his sputum is growing gram-negative rods, follow further cultures. This patient was seen by Itz Bennett PA-C under the supervision of Doctor Fermin. [] Discharge Diet: Low fat/ Low Cholesterol, 2000 mg Sodium Diet Discharge Activity: Return to Normal Activity Home Medications: Medications to take at Discharge Ropinirole HCl [Requip] 1 mg PO QHS 01/28/18 Rosuvastatin Calcium [Crestor] 40 mg PO QHS 01/28/18 Finasteride [Proscar] 5 mg PO DAILY 04/08/18 Albuterol Aerosols [Ventolin Aerosols] 2.5 mg INHALATION Q4H PRN 05/10/18 Amlodipine [Norvasc] 10 mg PO DAILY 05/10/18 Carvedilol [Coreg (Beta Kadi)] 25 mg PO BID #60 tab 05/13/18 Aspirin E.C. [Ecotrin] 81 mg PO DAILY@0800 tab 05/25/18 Clopidogrel Bisulfate [Plavix] 75 mg PO DAILY #1 tab 05/25/18 Isosorbide Mononitrate [Imdur] 30 mg PO DAILY #30 tab 05/26/18 bumetanide 2 mg tablet 2 mg PO BID tab 06/29/18 Metolazone [Zaroxolyn] 1 tab PO DAILY PRN 07/05/18 Lactulose 15 ml PO DAILY PRN 07/23/18 Potassium Chloride 10 meq PO DAILY PRN 07/23/18 Potassium Chloride [Klor-Con] 20 meq PO QHS 07/23/18 Ferrous Sulfate 325 mg PO BIDCM #60 tab 07/25/18 Levofloxacin [Levaquin] 500 mg PO Q48H #4 tab 07/25/18 Nepro Liquid [Nepro Carb Steady] 120 ml PO 4X/DAY #1 bottle 07/25/18 Tamsulosin HCl [Flomax] 0.4 mg PO DAILY@1730 #30 cap 07/25/18 Following Prescrptions Were Given to Patient: Ferrous Sulfate 325 mg PO BIDCM #60 tab Levofloxacin [Levaquin] 500 mg PO Q48H #4 tab Nepro Liquid [Nepro Carb Steady] 120 ml PO 4X/DAY #1 bottle Tamsulosin HCl [Flomax] 0.4 mg PO DAILY@1730 #30 cap Primary Care Physician: Tania Berger NP-C [Primary Care Provider] - Please follow up with your Primary Care Physician in: 1-2 weeks Please Follow Up With: Caleb Alaniz MD When: As directed Please Follow Up With: [facility] When: Tuesday Please Follow Up With: Tania Berger NP-C When: 1-2 weeks Disposition: Home Minutes spent on discharge:: 35 Patient Condition:: Stable Medical Necessity - Tobacco Use Smoking Status: Light Smoker (<10/day) Tobacco Use: Cigarettes Meaningful Use Info Meaningful Use Diagnoses (Choose all that apply): CHF - CHF HEATHER/ARB ordered at discharge?: No Reason HEATHER/ARB not ordered?: Worsening renal disease Documented LVEF (%): 50 <Manoj Christensen - Last Filed: 07/25/18 14:29> Discharge Date and Diagnosis - Secondary Discharge Diagnosis Chronic Problems (Last Reviewed 07/25/18 @ 13:23 by Kamilah White) History of non-ST elevation myocardial infarction (NSTEMI) (Chronic 01/21/11) History of left heart catheterization (Chronic 01/21/11) 10/13/[address] Barrientos @ [facility]:Per Dr. Jiménez @ [facility]: CABG recommended History of right and left heart catheterization (Chronic 05/24/18) Patent NICHOLAS to LAD, SVG to 1st OM and SVG to RCA. Elevated right heart pressures, significant Diastolic dysfunction per cath done @ [facility], Dr. Barrientos Stented coronary artery (Chronic) 2003, JASON to circumflex ; 10/13/2009 tsfer from [facility] to [facility], total of 5 bare metal stents to RCA per Dr. Barrientos @ [facility]: 3.5 X 18 Concrete Laborer, followed distally by 3.0 X12 Concrete Laborer to distal RCA;3.5 X 15 Concrete Laborer, followed proximally by 4.0 X 18 Concrete Laborer to Mid RCA; 4.0 X 18 Concrete Laborer to Proximal RCA S/P CABG x 3 (Chronic 01/26/11) [facility] per Dr. Osito Hernandez: NICHOLAS to LAD, reverse SVG to OMbranch of CX, reverse SVG to PDA of RCA. PDA endarterectomy. Status post peripheral artery angioplasty with insertion of stent (Chronic ~2010) Right common iliac, [facility] Atherosclerotic heart disease of [place] coronary artery without angina pectoris (Chronic) 2003, JASON to circumflex ; 10/10/2009 tsfer from [facility] to [facility], total of 5 bare metal stents to RCA; CABG X 3 vessels @ [facility] 01/31/2011 (critical left main and restenosis of RCA stents) HLD (hyperlipidemia) (Chronic) HTN (hypertension) (Chronic) PAD (peripheral artery disease) (Chronic) COPD (chronic obstructive pulmonary disease) (Chronic) Tobacco dependence (Chronic) CKD (chronic kidney disease) (Chronic) Leukocytosis (Chronic) Anemia (Chronic) BPH (benign prostatic hyperplasia) (Chronic) Hospital Course and Treatment Summary of Care Provided: This patient was seen in conjunction with Itz Bennett PA-C. I have independently interviewed and examined the patient and reviewed pertinent historical, laboratory, and other data. Please refer to Itz Bennett PA-C note for details of this patient's presentation, findings, and recommendations. I have reviewed Itz Bennett PA-C note and concur with documented findings. In brief, pt is a 67-year-old gentleman with history of end-stage renal disease on hemodialysis who was being weaned off dialysis however presented with increasing weight gain as well as generalized edema and assessment of acute diastolic congestive heart failure made admitted to a monitored bed for subsequent management Physical Examination: GENERAL: cooperative HEENT: Atraumatic; EYES; Anicteric, Normal Conjunctiva NECK; supple, normal thyroid, RESPIRATORY: Diminished to auscultation bilaterally, CARDIOVASCULAR: Regular S1 S2, GI: soft, non-tender, normoactive bowel sounds, : No Renal angle tenderness; No grider EXTREMITIES: 2+ pitting edema PSYCH; Normal affect Assessment: 1. Acute hypoxic respiratory failure secondary to CHF 2. Acute diastolic congestive heart failure EF 50% 3. Healthcare associated pneumonia 4. Acute cystitis 5. End-stage renal disease on dialysis 6. CAD with previous DC status post CABG and stent placement 7. Previous history of CVA 8. BPH 9. Carotid artery stenosis 10. Essential hypertension 11. DVT prophylaxis SC heparin Hospital course: As documented above by Itz Bennett Spent on discharge; 35 Code Visit Inpatient E&M: 64749 Disch Hosp
--- NOTE | 2018-07-25 14:06 | DS.PCM_ITS ---
<Itz Bennett - Last Filed: 07/25/18 14:01> Discharge Date and Diagnosis Date of Admission: 07/23/18 Date of Discharge: 07/25/18 - Primary Discharge Diagnosis Acute hypoxic respiratory failure secondary to acute diastolic congestive heart failure exacerbation Acute healthcare associated pneumonia presumed gram-negative Acute kidney injury on CKD stage IV/V CAD history of CABG and stents BPH History of CVA Hypertension Chronic constipation Carotid stenosis Ventral hernia - Secondary Discharge Diagnosis Chronic Problems (Last Reviewed 07/25/18 @ 13:23 by Kamilah White) History of non-ST elevation myocardial infarction (NSTEMI) (Chronic 01/21/11) History of left heart catheterization (Chronic 01/21/11) 10/13/[address] Barrientos @ [facility]:Per Dr. Jiménez @ [facility]: CABG recommended History of right and left heart catheterization (Chronic 05/24/18) Patent NICHOLAS to LAD, SVG to 1st OM and SVG to RCA. Elevated right heart pressures, significant Diastolic dysfunction [facility], [facility]. Barrientos Stented coronary artery (Chronic) 2003, JASON to circumflex ; [facility]/13/[facility], total of 5 bare metal stents to RCA per Dr. Barrientos @ [facility]: 3.5 X 18 Commercial Specialist, followed distally by 3.0 X12 Commercial Specialist to distal RCA;3.5 X 15 Commercial Specialist, followed proximally by 4.0 X 18 Commercial Specialist to Mid RCA; 4.0 X 18 Commercial Specialist to Proximal RCA S/P CABG x 3 (Chronic 01/26/11) [facility] per Dr. Osito Hernandez: NICHOLAS to LAD, reverse SVG to OMbranch of CX, reverse SVG to PDA of RCA. PDA endarterectomy. Status post peripheral artery angioplasty with insertion of stent (Chronic ~2010) Right common iliac, [facility] Atherosclerotic heart disease of [place] coronary artery without angina pectoris (Chronic) 2003, JASON to circumflex ; [facility]10/[facility], total of 5 bare metal stents to RCA; CABG X [address] [facility] 01/31/2011 (critical left main and restenosis of RCA stents) HLD (hyperlipidemia) (Chronic) HTN (hypertension) (Chronic) PAD (peripheral artery disease) (Chronic) COPD (chronic obstructive pulmonary disease) (Chronic) Tobacco dependence (Chronic) CKD (chronic kidney disease) (Chronic) Leukocytosis (Chronic) Anemia (Chronic) BPH (benign prostatic hyperplasia) (Chronic) Hospital Course and Treatment Imaging Results: RAD/Chest 1 View (Portable) IMPRESSION: Findings are suspicious for interval development of bilateral effusions pulmonary edema. Cardiomegaly status post sternotomy. RAD/Chest PA and Lateral IMPRESSION: 1. Right posterior lung base pneumonia, new when compared to 07/23/2018. 2. Clearing of mild pulmonary vascular congestion and bilateral pleural fluid. Consults; [place] - nephrology Operations: None Procedures: None Summary of Care Provided: Physical exam on day of discharge: General: Resting comfortably NAD Psych: A/Ox3 normal affect HEENT: PEARRLA AT NC Neck: Supple NT CV: RRR no m/t/r/g/h Resp:faint crackles bilateral lower noel are posteriorly Abd: [id number] Soft NT no guarding or rigidity Ext: DP2+= 2+ pitting edema bilateral lower extremities Skin: W/D normal turgor Lymph/Heme: No active bleeding or adenopathy Neuro: CN2-12 intact Hospital course: The patient is a 67 year old M with a history of diastolic congestive heart failure with a known EF of 50%, CKD stage IV/V recently discontinued from dialysis, BPH, hypertension, CAD with prior [place], CABG, stents, PAD, carotid artery stenosis with planned outpatient carotid endarterectomy with Dr. Lua, who presented to the emergency room with severe increased shortness of breath, cough, bilateral lower extremity edema, PND, orthopnea found to be in acute congestive heart failure exacerbation after stopping dialysis about a week prior. He did have an elevated white count but did not have any obvious infection at first. He was admitted to the PCU on telemetry and was dialyzed at night. He had significant improvement in shortness of breath and edema, however he continued to have a cough and white count worsened, developed a fever overnight. Follow-up chest x-ray revealed clearing of CHF however underlying pneumonia. Patient was started on Levaquin for healthcare associated pneumonia as he is a dialysis patient. He was kept one more night. He underwent a second round of dialysis with further improvement in his breathing and edema. He had no further fever and his white count improved. The following day he was placed on extended course of Levaquin for pneumonia and advised to continue to be dialyzed on his previous schedule with Dr. Alaniz. He was discharged home in stable condition. Follow-up with PCP in 1-2 weeks, Dr. Alaniz as directed, dialysis tomorrow. At this time his sputum is growing gram-negative rods, follow further cultures. This patient was seen by Itz Bennett PA-C under the supervision of Doctor Fermin. [] Discharge Diet: Low fat/ Low Cholesterol, 2000 mg Sodium Diet Discharge Activity: Return to Normal Activity Home Medications: Medications to take at Discharge Ropinirole HCl [Requip] 1 mg PO QHS 01/28/18 Rosuvastatin Calcium [Crestor] 40 mg PO QHS 01/28/18 Finasteride [Proscar] 5 mg PO DAILY 04/08/18 Albuterol Aerosols [Ventolin Aerosols] 2.5 mg INHALATION Q4H PRN 05/10/18 Amlodipine [Norvasc] 10 mg PO DAILY 05/10/18 Carvedilol [Coreg (Beta Kadi)] 25 mg PO BID #60 tab 05/13/18 Aspirin E.C. [Ecotrin] 81 mg PO DAILY@0800 tab 05/25/18 Clopidogrel Bisulfate [Plavix] 75 mg PO DAILY #1 tab 05/25/18 Isosorbide Mononitrate [Imdur] 30 mg PO DAILY #30 tab 05/26/18 bumetanide 2 mg tablet 2 mg PO BID tab 06/29/18 Metolazone [Zaroxolyn] 1 tab PO DAILY PRN 07/05/18 Lactulose 15 ml PO DAILY PRN 07/23/18 Potassium Chloride 10 meq PO DAILY PRN 07/23/18 Potassium Chloride [Klor-Con] 20 meq PO QHS 07/23/18 Ferrous Sulfate 325 mg PO BIDCM #60 tab 07/25/18 Levofloxacin [Levaquin] 500 mg PO Q48H #4 tab 07/25/18 Nepro Liquid [Nepro Carb Steady] 120 ml PO 4X/DAY #1 bottle 07/25/18 Tamsulosin HCl [Flomax] 0.4 mg PO DAILY@1730 #30 cap 07/25/18 Following Prescrptions Were Given to Patient: Ferrous Sulfate 325 mg PO BIDCM #60 tab Levofloxacin [Levaquin] 500 mg PO Q48H #4 tab Nepro Liquid [Nepro Carb Steady] 120 ml PO 4X/DAY #1 bottle Tamsulosin HCl [Flomax] 0.4 mg PO DAILY@1730 #30 cap Primary Care Physician: Tania Berger NP-C [Primary Care Provider] - Please follow up with your Primary Care Physician in: 1-2 weeks Please Follow Up With: Caleb Alaniz MD When: As directed Please Follow Up With: [facility] When: Tuesday Please Follow Up With: Tania Berger NP-C When: 1-2 weeks Disposition: Home Minutes spent on discharge:: 35 Patient Condition:: Stable Medical Necessity - Tobacco Use Smoking Status: Light Smoker (<10/day) Tobacco Use: Cigarettes Meaningful Use Info Meaningful Use Diagnoses (Choose all that apply): CHF - CHF HEATHER/ARB ordered at discharge?: No Reason HEATHER/ARB not ordered?: Worsening renal disease Documented LVEF (%): 50 <Manoj Christensen - Last Filed: 07/25/18 14:29> Discharge Date and Diagnosis - Secondary Discharge Diagnosis Chronic Problems (Last Reviewed 07/25/18 @ 13:23 by Kamilah White) History of non-ST elevation myocardial infarction (NSTEMI) (Chronic 01/21/11) History of left heart catheterization (Chronic 01/21/11) 10/13/[address] Barrientos @ [facility]:Per Dr. Jiménez @ [facility]: CABG recommended History of right and left heart catheterization (Chronic 05/24/18) Patent NICHOLAS to LAD, SVG to 1st OM and SVG to RCA. Elevated right heart pressures, significant Diastolic dysfunction [facility] cath done [facility], Dr. Barrientos Stented coronary artery (Chronic) 2003, JASON to circumflex ; 10/13/2009 [facility] to [facility], total of 5 bare metal stents to RCA per Dr. Barrientos @ [facility]: 3.5 X 18 Commercial Specialist, followed distally by 3.0 X12 Commercial Specialist to distal RCA;3.5 X 15 Commercial Specialist, followed proximally by 4.0 X 18 Commercial Specialist to Mid RCA; 4.0 X 18 Commercial Specialist to Proximal RCA S/P CABG x 3 (Chronic 01/26/11) [facility] per Dr. Osito Hernandez: NICHOLAS to LAD, reverse SVG to OMbranch of CX, reverse SVG to PDA of RCA. PDA endarterectomy. Status post peripheral artery angioplasty with insertion of stent (Chronic ~2010) Right common iliac, [facility] Atherosclerotic heart disease of [place] coronary artery without angina pectoris (Chronic) 2003, JASON to circumflex ; 10/10/2009 [facility] to [facility], total of 5 bare metal stents to RCA; CABG X [address] [facility] 01/31/2011 (critical left main and restenosis of RCA stents) HLD (hyperlipidemia) (Chronic) HTN (hypertension) (Chronic) PAD (peripheral artery disease) (Chronic) COPD (chronic obstructive pulmonary disease) (Chronic) Tobacco dependence (Chronic) CKD (chronic kidney disease) (Chronic) Leukocytosis (Chronic) Anemia (Chronic) BPH (benign prostatic hyperplasia) (Chronic) Hospital Course and Treatment Summary of Care Provided: This patient was seen in conjunction with Itz Bennett PA-C. I have independently interviewed and examined the patient and reviewed pertinent historical, laboratory, and other data. Please refer to Itz Bennett PA-C note for details of this patient's presentation, findings, and recommendations. I have reviewed Itz Bennett PA-C note and concur with documented findings. In brief, pt is a 67-year-old gentleman with history of end-stage renal disease on hemodialysis who was being weaned off dialysis however presented with increasing weight gain as well as generalized edema and assessment of acute diastolic congestive heart failure made admitted to a monitored bed for subsequent management Physical Examination: GENERAL: cooperative HEENT: Atraumatic; EYES; Anicteric, Normal Conjunctiva NECK; supple, normal thyroid, RESPIRATORY: Diminished to auscultation bilaterally, CARDIOVASCULAR: Regular S1 S2, GI: soft, non-tender, normoactive bowel sounds, : No Renal angle tenderness; No grider EXTREMITIES: 2+ pitting edema PSYCH; Normal affect Assessment: 1. Acute hypoxic respiratory failure secondary to CHF 2. Acute diastolic congestive heart failure EF 50% 3. Healthcare associated pneumonia 4. Acute cystitis 5. End-stage renal disease on dialysis 6. CAD with previous [place] status post CABG and stent placement 7. Previous history of CVA 8. BPH 9. Carotid artery stenosis 10. Essential hypertension 11. DVT prophylaxis SC heparin Hospital course: As documented above by Itz Bennett Spent on discharge; 35 Code Visit Inpatient E&M: 10443 Disch Hosp
[2018-07-26 07:07] LABS: HEPATITIS B SURFACE AG Negative (Negative); Hepatitis Be Ag Negative (Negative)
[2018-07-26 07:29] LABS: Hepatitis B Core Ab Total Negative (Negative)
--- NOTE | 2018-07-26 12:57 | CASEMGMT ---
RAYMOND SPENCER Discharge F/U Phone Call LACE: 14 Strata: 4 Discharge date: 07/25/18 This RAYMOND SPENCER was going to attempt to call pt but pt is currently at dialysis treatment at this time. Pt is scheduled to received dialysis M,W, F at 1230. RAYMOND SPENCER will attempt to reach pt on another day. [place] RAYMOND SPENCER
--- NOTE | 2018-07-28 11:47 | CASEMGMT ---
RAYMOND SPENCER Discharge Follow-Up Phone Call. LACE: 14 Strata: 4 Discharge Date: 07/25/18 Adm Dx: Acute hypoxic respiratory failure secondary to acute diastolic congestive heart failure exacerbation Acute healthcare associated pneumonia presumed gram-negative Acute kidney injury on CKD stage IV/V Phone call placed to pt and has him how he has been feeling since he left the hospital. Pt states, not real bad. States, it sucks to be back on that dialysis. Discussed d/c instructions with pt. He states he was able to get the prescriptions and is taking as instructed. Did have a question about the Amlodipine, stating he had a paper that stated to discuss the Amlodipine with his MD and he was wanting to know what that was referring to. Per d/c instructions in [facility], there is not a comment stating for pt to discuss Amlodipine with his MD. Informed pt of this, but did tell him that if he was instructed to do discuss this with his MD, to follow up with [employer] about it or Dr Barrientos if he has any questions or concerns about it. Pt stated he has an appt for Dialysis today 07-28-18 and is hoping to see Dr Alaniz today as well. Pt states he has not made an apt with [employer] Terra Berger yet, but plans to do so. Pt states he saw Dr Lua yesterday and is to follow-up with him next for vein mapping. Pt denies having any further questions at this time. Pt instructed to call CM @ [facility] if he has any further questions or concerns. RAYMOND SPENCER thanked pt for choosing [facility]. Junior VALADEZ RN, CM
== END 2018-07-25 11:54 | disposition home or self-care (01) | DRG 291 ==
LOC: ED 15:15 → PCU 16:36
PROVIDERS: Hospitalist; Internal Medicine Nephrology; Physician Assistant; Emergency Provider Emergency Medicine; Family Provider Nurse Practitioner Family; PCP Nurse Practitioner Family; Referring Provider Internal Medicine Cardiovascular Disease; Visit Provider Internal Medicine
DX: I13.2 Hypertensive heart and chronic kidney disease with heart failure and with stage 5 chronic kidney disease, or end stage renal disease (principal); I50.33 Acute on chronic diastolic (congestive) heart failure; J15.6 Pneumonia due to other Gram-negative bacteria; J96.01 Acute respiratory failure with hypoxia; N17.9 Acute kidney failure, unspecified; Y95 Nosocomial condition; I25.10 Atherosclerotic heart disease of native coronary artery without angina pectoris; N40.0 Benign prostatic hyperplasia without lower urinary tract symptoms; I73.9 Peripheral vascular disease, unspecified; E78.5 Hyperlipidemia, unspecified; I65.29 Occlusion and stenosis of unspecified carotid artery; Z86.73 Personal history of transient ischemic attack (TIA), and cerebral infarction without residual deficits; Z95.5 Presence of coronary angioplasty implant and graft; Z95.1 Presence of aortocoronary bypass graft; I25.2 Old myocardial infarction; K43.9 Ventral hernia without obstruction or gangrene; K59.09 Other constipation; F17.210 Nicotine dependence, cigarettes, uncomplicated
CPT/HCPCS: 36415; 36600; 71045; 71046; 80048; 81001; 82803; 83605; 83880; 84484; 85025; 86704; 87040; 87070; 87077; 87086; 87088; 87186; 87205; 87340; 87350; 87449; 90937; 93005; 94640; 94660; 94667; 94668; 97802; 99283; 99406; J7030; A4216; G0257; J1940

== ENCOUNTER → 2018-08-03 09:47 | Outpatient (CLI) | payer MEDICARE, SELFPAY ==
--- NOTE | 2018-08-03 09:48 | VDUE_ITS ---
Reason For Study: T82.59 mechanical complication Right Arm Left Arm Right cephalic vein is compressible. Left cephalic vein is compressible. Right Cephalic Vein at the shoulder Left Cephalic Vein at the shoulder measures .104 x .108 cm. measures .104 x .088 cm. Right Cephalic Vein mid bicep measures .084 Left Cephalic Vein at mid bicep x .092 cm. measures .104 x .087 cm. Right Cephalic Vein above antecub Left Cephalic Vein above antecub measures .108 x .116 cm. measures .154 x .146 cm. Right Cephalic Vein below antecub Left Cephalic Vein below antecub measures .091 x .100 cm. measures .104 x .112 cm. Right Cephalic Vein in the forearm Left Cephalic Vein in the forearm measures .083 x .084 cm. measures .104 x .100 cm. Right Cephalic Vein at the wrist Left Cephalic Vein at the wrist measures .046 x .042 cm. measures .092 x .096 cm. Right basilic vein is compressible. Left basilic vein is compressible. Right Basilic Vein at the origin Basilic vein at origin measures .258 x .275 measures .258 x .266 cm. cm. Right Basilic Vein above antecub measures Basilic vein above antecub measures .275 3.12 x .324 cm. x .283 cm. Right Basilic Vein below antecub Basilic V below this level is too small to measures .137 x .121 cm. assess. Right Basilic Vein in the forearm Brachial A 83.8 cm/s. measures .075 x .079 cm. Brachial A .457 x .474 cm. Right Basilic Vein at the wrist Radial A 58.0 cm/s. measures .058 x .064 cm. Radial A .187 x .208 cm. Brachial A 109 cm/s. Brachial A .528 x .553 cm. Radial A 84.4 cm/s. Radial A .216 x .183 cm. Interpretation Summary Diminutive cephalic veins bilaterally as noted Adequate bilateral upper arm basilic veins Small radial arteries bilaterally Normal flow bilateral brachial arteries. Ordering Physician: Demian Lua Performed By: Rolando Dao RVT ???
== END ==
PROVIDERS: Family Provider Nurse Practitioner Family; PCP Nurse Practitioner Family; Referring Provider Surgery; Visit Provider Surgery
DX: Z01.818 Encounter for other preprocedural examination (principal); T82.590A Other mechanical complication of surgically created arteriovenous fistula, initial encounter; N18.5 Chronic kidney disease, stage 5
CPT/HCPCS: 93970

== ENCOUNTER 2018-08-31 08:18 | Day surgery (SDC) | payer MEDICARE, SELFPAY ==
[2018-08-31] VITALS (11 sets, daily range): BP systolic 130–159; BP diastolic 53–62; PULSE 62–68; RESP 16–20; TEMP 36.6–36.8; O2SAT 92–96; BMI 26.9
[2018-08-31] MEDS: Bupivacaine Mpf 0.5% 30 ML VIAL (09:19)
--- NOTE | 2018-08-31 10:07 | DCINST_ITS ---
Discharge Diet: Renal Diet Discharge Activity: May Not Drive - for 2-3 days or while taking narcotic pain medications., May Shower, May Take a Tub Bath - in 5 days. Lifting Restrictions: 5 pounds Keep extremity elevated above heart level: - - Keep arm elevated above the heart level for 3 days. Additional Activity Instructions:: Exercise hand vigorously with a stress ball. Call your doctor if your incision/area has: Continuous Slow Oozing, Sudden Increased Bleeding - apply pressure and call your doctor., Increased Pain/ Swelling, Increased Redness, Foul Smelling Discharge Call your doctor if you observe: Fever of 101 or Higher Suture Line Care: Avoid Pulling/Pushing, Avoid Pinching/Bending Cleanse incision/area with: Keep Dressing Clean & Dry Additional Dressing/Incision Instructions:: Change or remove dressing in one day. May protect with a gauze bandaid. Allergies/Adverse Reactions: Allergies irbesartan [From Avapro] Allergy (Severe, Verified 08/31/18 08:45) Blisters zolpidem [From Ambien] Adverse Reaction (Severe, Verified 08/31/18 08:45) made me go crazy, memory loss Medications to take at Discharge Ropinirole HCl [Requip] 1 mg PO QHS 01/28/18 Rosuvastatin Calcium [Crestor] 40 mg PO QHS 01/28/18 Albuterol Aerosols [Ventolin Aerosols] 2.5 mg INHALATION Q4H PRN 05/10/18 Amlodipine [Norvasc] 10 mg PO DAILY 05/10/18 Carvedilol [Coreg (Beta Kadi)] 25 mg PO BID #60 tab 05/13/18 Aspirin E.C. [Ecotrin] 81 mg PO DAILY@0800 tab 05/25/18 Clopidogrel Bisulfate [Plavix] 75 mg PO DAILY #1 tab 05/25/18 Isosorbide Mononitrate [Imdur] 30 mg PO DAILY #30 tab 05/26/18 bumetanide 2 mg tablet 2 mg PO BID tab 06/29/18 Lactulose 15 ml PO DAILY PRN 07/23/18 Tamsulosin HCl [Flomax] 0.4 mg PO DAILY@1730 #30 cap 07/25/18 Alprazolam [Xanax] 0.5 mg PO QHS 08/25/18 Ferric Citrate [Auryxia] 210 mg PO BIDAC 08/25/18 Prednisone 10 mg PO DAILY 08/25/18 Sennosides [Senna Lax] 2 tab PO QHS 08/25/18 Ciprofloxacin [Cipro] 250 mg PO BID 08/31/18 Hydrocodone Bitart/Apap 5-325 [[place] 5MG-325MG] 1 tablet PO Q6H PRN PRN 3 Days #5 tablet 08/31/18 The following prescriptions were given: Hydrocodone Bitart/Apap 5-325 [[place] 5MG-325MG] 1 tablet PO Q6H PRN PRN 3 Days #5 tablet PRN Reason: Pain Primary Care Physician: Tania Berger NP-C [Primary Care Provider] - Test Results: Test results from this visit will be discussed in further detail at your follow- up appointment, if applicable. Please Follow Up With: Demian Lua MD - [phone] When: Call to make an appointment for follow up in 10 days
[2018-08-31] MEDS: Heparin Injection (Vial) 5,000 UNIT/ML VIAL 5000 UNIT (10:26)
--- NOTE | 2018-08-31 11:10 | PCM.OPRPT ---
Problem List (1) Chronic renal failure, stage 5 Status: Chronic Report of Operation Date of Procedure: 08/31/18 Pre-Operative Diagnosis: Stage V chronic renal failure Post-Operative Diagnosis: Same Surgery/Procedure Performed:: Left upper extremity transposition cephalic vein to brachial artery arteriovenous fistula creation Description of Surgical Findings:: Timeout informed consent was obtained. 67-year-old gent was taken out from placement table underwent monitored anesthesia care. The left upper extremity was sterilely prepped and draped. 1% lidocaine mixed 50-50 with 0.5% Marcaine was used as local anesthetic. A total of 5 cc was used. Ultrasound had been performed preoperatively to map the cephalic vein. A slightly oblique incision was created sharp blunt dissection was used to identify the cephalic vein. Then I dissected free and continued to secure off side branches with hemoclips and I extended that dissection for approximately 10 cm proximally. That allowed for transposition and elevation of that cephalic vein in the distal upper arm. Then using sharp blunt dissection identified the brachial artery. Circumferential control was obtained. The patient received 8000 units of heparin. After adequate circling time peripheral vascular clamps were placed on the brachial artery. A 11 blade was used to make an arteriotomy which was extended with Jones scissors and this was performed in a slightly oblique nature. The vein was ligated distally with a Hemoclip and then it was spatulated and a end-to-side anastomosis was created with a running 7-0 Prolene. Prior to completion of there is a good antegrade and retrograde flow. The anastomosis was completed was noted be completely hemostatic. Immediately there was good flow within the fistula. Doppler confirmed good flow. The wound was closed in layers with a deep layer of interrupted 3-0 Vicryl and then a running septic or 4-0 Monocryl. Steri-Strips and Telfa and OpSite dressings were applied. Sponge and needle and instrument counts were correct. Blood loss was minimal. Hand was viable at the completion no apparent complication he was taken to the recovery area in satisfactory condition. Specimens none. Drains none. Blood loss minimal. Demian Lua M.D., F.A.C.S. Type of Anesthesia:: Local MAC Anesthesiologist: Darren Rodriguez
[2018-08-31] MEDS: Ipratropium/Albuterol Sulfate 3 ML AMPUL.NEB INHALATION (11:40)
== END 2018-08-31 13:32 | disposition home or self-care (01) ==
LOC: SDC 08:19 → AC 08:20
PROVIDERS: Family Provider Nurse Practitioner Family; PCP Nurse Practitioner Family; Referring Provider Surgery; Visit Provider Surgery
PROC: (CPT 36818; principal; 2018-08-31 09:45)
DX: I13.2 Hypertensive heart and chronic kidney disease with heart failure and with stage 5 chronic kidney disease, or end stage renal disease (principal); N18.5 Chronic kidney disease, stage 5; D64.9 Anemia, unspecified; Z79.899 Other long term (current) drug therapy; Z79.82 Long term (current) use of aspirin; Z79.52 Long term (current) use of systemic steroids; I25.10 Atherosclerotic heart disease of native coronary artery without angina pectoris; I25.2 Old myocardial infarction; Z95.1 Presence of aortocoronary bypass graft; J44.9 Chronic obstructive pulmonary disease, unspecified; G47.30 Sleep apnea, unspecified; I50.31 Acute diastolic (congestive) heart failure; N40.0 Benign prostatic hyperplasia without lower urinary tract symptoms; I73.9 Peripheral vascular disease, unspecified; E78.5 Hyperlipidemia, unspecified; F17.200 Nicotine dependence, unspecified, uncomplicated
CPT/HCPCS: 01780; 36818; 94640

== ENCOUNTER 2018-09-11 10:35 | Inpatient (IN) | payer MEDICARE, SELFPAY ==
[2018-08-31 08:48] VITALS: BMI 26.9
[2018-09-11] VITALS (29 sets, daily range): BP systolic 142–171; BP diastolic 55–76; PULSE 63–96; RESP 12–33; TEMP 36.3–36.7; O2SAT 96–100; BMI 28.8; BMI 28.3; BMI 28.9
--- NOTE | 2018-09-11 10:44 | EKG12_ITS ---
Test Reason : SOB Blood Pressure : / mmHG Vent. Rate : 074 BPM Atrial Rate : 074 BPM P-R Int : 226 ms QRS Dur : 090 ms QT Int : 404 ms P-R-T Axes : 020 070 133 degrees QTc Int : 448 ms Sinus rhythm with 1st degree A-V block Nonspecific T wave abnormality Abnormal ECG Confirmed by VIKY MONTENEGRO, JOS ([id number]), industrial editor JAVON GONZALEZ ([id number]) on 09/13/2018 3:55:21 PM Referred By: SONG Confirmed By:JOS SALMON MD
--- NOTE | 2018-09-11 10:44 | RAD_ITS ---
STUDY: X-RAY CHEST REASON FOR EXAM: Male, 67 years old. Shortness of breath. TECHNIQUE: Single AP portable view of the chest. COMPARISON: Comparison is made with prior study dated July 24, 2018. FINDINGS: A right-sided double-lumen catheter is seen with the tip at the junction of the superior vena cava and right atrium. There is evidence of vascular congestion and CHF. Blunting of both costophrenic angles. Sternal cerclage wires and vascular clips are present from a prior sternotomy and coronary artery bypass graft procedure (CABG). Normal mediastinum and justyn. Normal visualized pulmonary arteries. There is atherosclerotic calcification of the aortic arch with tortuosity. There are diffuse degenerative changes of the visualized thoracic spine. Normal visualized ribs, clavicles, and shoulders. There is no demonstrated abnormality of the visualized soft tissue structures of the upper abdomen. RAD/Chest 1 View (Portable) IMPRESSION: Findings in keeping with the CHF. Electronically Signed: Deven Hensley MD at 11:25 EST Tel [phone], Service support ,
[2018-09-11] MEDS: Ipratropium/Albuterol Sulfate 3 ML AMPUL.NEB INHALATION ×2 (10:57→23:02)
[2018-09-11 11:16] LABS: Allen Test POS; Base Excess -1 mmol/L (-2 to +2); Bicarbonate 23.3 mmol/L (22-26); Blood Gas Specimen Type ART; EPAP 8; FI02 45; IPAP 18; PO2 130 mmHG (75-100); SITE R Radial; SO2 99 % (95-99); Time Given 1100; Total Carbon Dioxide 24 mmol/L; pCO2 35.2 mmHg (35-45); pH 7.43 (7.35-7.45)
[2018-09-11 11:18] LABS: Absolute Lymphocyte Count 0.63 X10^3/ul (0.83-4.51); Absolute Neutrophil Count 16.4 X10^3/uL (2.0-7.7); Basophil# 0.01 X10^3/uL; Basophil% 0.1 % (0-1); Eosinophil# 0.04 X10^3/uL; Eosinophils% 0.2 % (0-5); Hematocrit 33.8 % (40-54); Hemoglobin 10.7 g/dl (13.0-16.5); Lymphocyte # 0.63 X10^3/ul (4.0); Lymphocyte % 3.5 % (19-41); Mean Corp Hgb Conc 31.7 g/gl (32-36); Mean Corpuscular Hgb 31.2 pg (27.0-32.0); Mean Corpuscular Volume 98.5 fL (80-94); Mean Platelet Vol. 10.3 fl (6.2-12.0); Monocyte# 0.69 X10^3/uL; Monocyte% 3.9 % (0-10); Neutrophil # 16.41 X10^3/uL (2.7-7.7); Neutrophil % 92.1 % (47-70); Platelet Count 173 K/mm3 (150-450); RBC Distribution Width CV 16.5 % (11.6-14.6); Red Blood Count 3.43 M/mm3 (4.6-6.2); White Blood Count 17.8 K/mm3 (4.4-11.0)
[2018-09-11 11:19] LABS: POSITIVE COUNT NO; POSITIVE DIFFERENTIAL NO; POSITIVE MORPHOLOGY NO
[2018-09-11 11:39] LABS: Anion Gap 20 (5-15); BUN 102 mg/dL (7-18); BUN/Creat Ratio 16.9 RATIO (10-20); Calcium,Total 9.1 mg/dL (8.5-10.1); Chloride 94 mmol/L (98-107); Creatinine, Serum 6.05 mg/dL (0.70-1.30); EST Glomerular Filtration Rate 10 mL/min (>60); Est Glom Filt Rate - Afr Amer 12 mL/min (>60); Estimated Creatinine Clearance 11.62 ml/min; Glucose 130 mg/dL (74-106); Potassium 5.5 mmol/L (3.5-5.1); Sodium Level 132 mmol/L (136-145)
--- NOTE | 2018-09-11 11:51 | ED.RN ---
bun 102 called from the lab. dr mcdaniel aware
--- NOTE | 2018-09-11 11:53 | ED.VISSUMM ---
- ER Visit Summary Date of Service: 09/11/18 Chief Complaint: Shortness of breath History of Present Illness: The patient is a 67 M who arrived by ambulance on BiPAP for shortness of breath. He has history of COPD, CHF and end-stage renal disease. He is dialyzed on Tuesday, Tuesday and Tuesday. He is scheduled for dialysis later today. He states he was compliant with his diet over the holiday weekend. He denies fever, chills night sweats. He denies tightness or heaviness in his chest. He denies chest pain of any type. He states the swelling of his legs is common. He states he makes no urine. He states he has been compliant with his medication. History is limited secondary to respiratory distress. Please read written note for complete detail. Physical Examination: Patient is in respiratory distress. He is on BiPAP. HEENT exam is remarkable for slight exophthalmos is bilaterally. Trachea midline. No carotid bruit. Question of JVD at 75 degrees angulation. Rales noted bilaterally throughout with wheezing greater on right than left. Heart is regular. Heart tones are distant. Median sternotomy scar noted. Abdomen prominent soft nontender. 2+ pitting edema lower extremity. Difficult to assess pulses because of edema. Neuro exam is nonfocal. Test Results: EKG reveals a sinus rhythm rate of 74 with a first-degree AV block. There is nonspecific ST-T wave changes the 5 and 6. Chest x-ray reveals Vas-Cath right subclavian. Prominent heart with fluid overload versus congestive heart failure. White count is elevated at 17.8 thousand. Electro panel is abnormal. Sodium and chloride of 1 3294 respectively. Potassium slightly elevated 5.4. BUN is 102 with a creatinine of 6.05. Glucose is 130. CO2 18 with an anion gap of 20. ABG on BiPAP reveals pH 7.43, PCO2 35, PaO2 130 and total CO2 of 23.8. This reveals hypoxia. Emergency Department Course and Treatment: To evaluate patient's shortness of breath wheezing and rales chest x-ray was obtained to assess for CHF, fluid overload versus pneumonia. EKG to evaluate for cardiac ischemia. Electronic panel since he is due for dialysis. CBC to evaluate for white count and to determine if he is anemic. Patient received Atrovent because of the wheezing. After reviewing his vital signs chest x-ray he was placed on nitroglycerin for preload reduction. He was not given Lasix or Bumex as he makes no urine. The hospitalist and neurologist were paged for admission and emergent dialysis Treatment Plan: Admission and emergent dialysis Disposition: ICU Impression: 1. Respiratory failure with hypoxia 2. Fluid overload secondary to end-stage renal disease versus CHF versus combination 3. End-stage renal disease on hemodialysis 4. Bronchospasm 5. History coronary disease 6. History of congestive heart failure 7. History of hypertension This note was generated with [employer] dictation software. It may contain incorrect words, spelling, and punctuation that were not noted in review of the chart prior to signing ED Disposition - Plan for ED Patient: Chief Complaint: Shortness of Breath Referrals: Tania Berger NP-C [Primary Care Provider] -
[2018-09-11 11:54] LABS: Lactic Acid 0.9 mmol/L (0.4-2.0)
--- NOTE | 2018-09-11 11:59 | ED.DCSUM_ITS ---
- ER Visit Summary Date of Service: 09/11/18 Chief Complaint: Shortness of breath History of Present Illness: The patient is a 67 M who arrived by ambulance on BiPAP for shortness of breath. He has history of COPD, CHF and end-stage renal disease. He is dialyzed on Tuesday, Tuesday and Tuesday. He is scheduled for dialysis later today. He states he was compliant with his diet over the holiday weekend. He denies fever, chills night sweats. He denies tightness or heaviness in his chest. He denies chest pain of any type. He states the swelling of his legs is common. He states he makes no urine. He states he has been compliant with his medication. History is limited secondary to respiratory distress. Please read written note for complete detail. Physical Examination: Patient is in respiratory distress. He is on BiPAP. HEENT exam is remarkable for slight exophthalmos is bilaterally. Trachea midline. No carotid bruit. Question of JVD at 75 degrees angulation. Rales noted bilaterally throughout with wheezing greater on right than left. Heart is regular. Heart tones are distant. Median sternotomy scar noted. Abdomen prominent soft nontender. 2+ pitting edema lower extremity. Difficult to assess pulses because of edema. Neuro exam is nonfocal. Test Results: EKG reveals a sinus rhythm rate of 74 with a first-degree AV block. There is nonspecific ST-T wave changes the 5 and 6. Chest x-ray reveals Vas-Cath right subclavian. Prominent heart with fluid overload versus congestive heart failure. White count is elevated at 17.8 thousand. Electro panel is abnormal. Sodium and chloride of 1 3294 respectively. Potassium slig htly elevated 5.4. BUN is 102 with a creatinine of 6.05. Glucose is 130. CO2 18 with an anion gap of 20. ABG on BiPAP reveals pH 7.43, PCO2 35, PaO2 130 and total CO2 of 23.8. This reveals hypoxia. Emergency Department Course and Treatment: To evaluate patient's shortness of breath wheezing and rales chest x-ray was obtained to assess for CHF, fluid overload versus pneumonia. EKG to evaluate for cardiac ischemia. Electronic panel since he is due for dialysis. CBC to evaluate for white count and to determine if he is anemic. Patient received Atrovent because of the wheezing. After reviewing his vital signs chest x-ray he was placed on nitroglycerin for preload reduction. He was not given Lasix or Bumex as he makes no urine. The hospitalist and neurologist were paged for admission and emergent dialysis Treatment Plan: Admission and emergent dialysis Disposition: ICU Impression: 1. Respiratory failure with hypoxia 2. Fluid overload secondary to end-stage renal disease versus CHF versus combination 3. End-stage renal disease on hemodialysis 4. Bronchospasm 5. History coronary disease 6. History of congestive heart failure 7. History of hypertension This note was generated with [employer] dictation software. It may contain incorrect words, spelling, and punctuation that were not noted in review of the chart prior to signing ED Disposition - Plan for ED Patient: Chief Complaint: Shortness of Breath Referrals: Tania Berger, ARMEN-C [Primary Care Provider] -
--- NOTE | 2018-09-11 16:49 | PCM.CONS.R ---
Problem List (1) ESRD (end stage renal disease) Status: Acute (2) Hypertensive emergency Status: Acute Consultation - Renal PCP/ Referring MD: Requesting physician: [] Primary care physician: SEUN Poe - History of Present Illness History of Present Illness: The patient is a 67 year old M PMH of ESRD. Pt is MWF schedule of HD. Pt presented with acute onset of SOB this morning. Pt could not make it to HD unit Pt was found to have pulmonary edema along with BP 190/100 Pt was admitted with HTN emergency and was started on Nitro drip Renal team was consulted for urgent HD. Pt was seen today during HD sessio. He is tolerating the session well with UF goal of 3L Pt has right IJ TC which is poorly functioning during HD session ROS: 12 systems review is negative except for some SOB[] - Allergies Allergies: Allergies irbesartan [From Avapro] Allergy (Severe, Verified 09/11/18 10:41) Blisters zolpidem [From Ambien] Adverse Reaction (Severe, Verified 09/11/18 10:41) made me go crazy, memory loss - Current Medications Current Medications: Current Medications Nitroglycerin/Dextrose 25 mg/ (N/A) 250 mls @ 3 mls/hr IV .[id number] Last Admin: 09/11/18 12:07 Dose: 3 mls/hr - Past Medical History Past Medical History (Chronic Problems): Chronic Problems (Last Reviewed 08/17/18 @ 09:55 by Judith Powell) Chronic renal failure, stage 5 (Chronic) History of non-ST elevation myocardial infarction (NSTEMI) (Chronic 01/21/11) History of left heart catheterization (Chronic 01/21/11) 10/13/[address] Barrientos @ [facility]:Per Dr. Jiménez @ [facility]: CABG recommended History of right and left heart catheterization (Chronic 05/24/18) Patent NICHOLAS to LAD, SVG to 1st OM and SVG to RCA. Elevated right heart pressures, significant Diastolic dysfunction per cath done @ [facility], Dr. Barrientos Stented coronary artery (Chronic) 2003, JASON to circumflex ; 10/13/2009 tsfer from [facility] to [facility], total of 5 bare metal stents to RCA per Dr. Barrientos @ [facility]: 3.5 X 18 Pump Assembler, followed distally by 3.0 X12 Pump Assembler to distal RCA;3.5 X 15 Pump Assembler, followed proximally by 4.0 X 18 Pump Assembler to Mid RCA; 4.0 X 18 Pump Assembler to Proximal RCA S/P CABG x 3 (Chronic 01/26/11) [facility] per Dr. Osito Hernandez: NICHOLAS to LAD, reverse SVG to OMbranch of CX, reverse SVG to PDA of RCA. PDA endarterectomy. Status post peripheral artery angioplasty with insertion of stent (Chronic ~2010) Right common iliac, [facility] Atherosclerotic heart disease of [place] coronary artery without angina pectoris (Chronic) 2003, JASON to circumflex ; 10/10/2009 tsfer from [facility] to [facility], total of 5 bare metal stents to RCA; CABG X 3 vessels @ [facility] 01/31/2011 (critical left main and restenosis of RCA stents) HLD (hyperlipidemia) (Chronic) HTN (hypertension) (Chronic) PAD (peripheral artery disease) (Chronic) COPD (chronic obstructive pulmonary disease) (Chronic) Tobacco dependence (Chronic) CKD (chronic kidney disease) (Chronic) Leukocytosis (Chronic) Anemia (Chronic) BPH (benign prostatic hyperplasia) (Chronic) - Past Surgical History Surgical History: coronary bypass surgery, tonsillectomy - Social History Smoking Status: Light Smoker (<10/day) - Family History Maternal Family History: Family History (Last Reviewed 08/17/18 @ 09:55 by Judith Powell) Father CAD (coronary artery disease) Hypertension Kidney disease CVA (cerebral vascular accident) Other Cancer History Items: Heart Disease Paternal Family History: Family History (Last Reviewed 08/17/18 @ 09:55 by Judith Powell) Father CAD (coronary artery disease) Hypertension Kidney disease CVA (cerebral vascular accident) Other Cancer History Items: Heart Disease Patient Problems: Active and Suspected Problems (Last Reviewed 08/17/18 @ 09:55 by Judith Powell) ESRD (end stage renal disease) (Acute) Hypertensive emergency (Acute) - Physical Exam General: Alert, Oriented x3 HEENT: Atraumatic Oral: Moist Mucosa Neck: Supple, No JVD Lungs: Short of Breath, - - B/L crackles Cardiovascular: Regular rate, Normal S1, Normal S2 Abdomen: Bowel Sounds Present, Soft, Non Tender Extremities: No clubbing, No cyanosis, - - +2 edema of LE Skin: No rashes Musculoskeletal: No Tenderness to Palpation of Joints or Extremities Lymphatic: No Cervical, Supraclavicular, or Inguinal Adenopathy Neurological: Cranial nerves II-XII grossly intact, Neuro grossly intact Psych/Mental Status: Normal Affect Vital Signs Temp Pulse Resp BP Pulse Ox 98 F 64 20 H 162/57 H 99 09/11/18 16:00 09/11/18 16:00 09/11/18 16:00 09/11/18 16:00 09/11/18 16:00 Oxygen Delivery Method Bi-pap Weight: 84.5 kg Body Mass Index (BMI) 28.3 Finger Stick Blood Glucose 200 Laboratory Tests Past 24 Hrs 09/11/18 09/11/18 09/11/18 11:11 11:15 11:15 WBC 17.8 H RBC 3.43 L Hgb 10.7 L Hct 33.8 L MCV 98.5 H MCH 31.2 MCHC 31.7 L RDW 16.5 H RDW Differential 59.0 H Plt Count 173 MPV 10.3 Immature Gran % (Auto) 0.200 Neut % (Auto) 92.1 H Lymph % (Auto) 3.5 L Owsley % (Auto) 3.9 Eos % (Auto) 0.2 Baso % (Auto) 0.1 Absolute Neuts (auto) 16.4 H Absolute Lymphs (auto) 0.63 L Total Counted Not Reportable Specimen Type ART Sample Site R Radial pH 7.43 Bicarbonate Actual 23.3 POC Total CO2 24 Base Excess -1 O2 Saturation 99 O2 % 45 ABG pCO2 35.2 ABG pO2 130 H Clay Test POS O2 Delivery Device Bi / C PAP EPAP 8 IPAP 18 Blood Gas Notified Whom ED Blood Gas Notified Time 1100 Sodium 132 L Potassium 5.5 H Chloride 94 L Carbon Dioxide 18.0 L Anion Gap 20 H BUN 102 H* Creatinine 6.05 H Estim Creat Clear Calc 11.62 Est GFR (MDRD) Af Amer 12 L Est GFR (MDRD) Non-Af 10 L BUN/Creatinine Ratio 16.9 Glucose 130 H Lactic Acid Calcium 9.1 Troponin I 0.023 B-Natriuretic Peptide 09/11/18 09/11/18 11:17 11:17 WBC RBC Hgb Hct MCV MCH MCHC RDW RDW Differential Plt Count MPV Immature Gran % (Auto) Neut % (Auto) Lymph % (Auto) Owsley % (Auto) Eos % (Auto) Baso % (Auto) Absolute Neuts (auto) Absolute Lymphs (auto) Total Counted Specimen Type Sample Site pH Bicarbonate Actual POC Total CO2 Base Excess O2 Saturation O2 % ABG pCO2 ABG pO2 Clay Test O2 Delivery Device EPAP IPAP Blood Gas Notified Whom Blood Gas Notified Time Sodium Potassium Chloride Carbon Dioxide Anion Gap BUN Creatinine Estim Creat Clear Calc Est GFR (MDRD) Af Amer Est GFR (MDRD) Non-Af BUN/Creatinine Ratio Glucose Lactic Acid 0.9 Calcium Troponin I B-Natriuretic Peptide 2028.2 H Assessment/Plan All Active Problems (Last Reviewed 08/17/18 @ 09:55 by Judith Powell) DAI (acute kidney injury) (Acute) ESRD (end stage renal disease) (Acute) Hypertensive emergency (Acute) S/P dialysis catheter insertion (Acute 05/22/18) History of thoracentesis (Acute 05/22/18) Acute renal failure superimposed on chronic kidney disease (Acute) Acute respiratory failure with hypoxia (Acute) Diastolic CHF (Acute) 1- ESRD on MWF. Pt goes to [facility] HD center in [place] HD session was arranged urgently for pulmonary edema: BQ 250, DQ 600, UF 3L, 2K bath. HD access is right IJ TC UE AVF is still maturing Will re evaluate the need of HD tomorrow 2- Anemia: Hgb >10. will continue to monitor for now 3- hypertensive emergency. BP is better. On Nitro drip Resume home BP meds UF with HD 4- acute hypoxemic RF from pulmonary edema On BiPAP. UF of 3 L today Renal team will continue to follow MACIEL JACQUES
--- NOTE | 2018-09-11 16:57 | CON.PCM_ITS ---
Problem List (1) ESRD (end stage renal disease) Status: Acute (2) Hypertensive emergency Status: Acute Consultation - Renal PCP/ Referring MD: Requesting physician: [] Primary care physician: SEUN Poe - History of Present Illness History of Present Illness: The patient is a 67 year old M PMH of ESRD. Pt is MWF schedule of HD. Pt presented with acute onset of SOB this morning. Pt could not make it to HD unit Pt was found to have pulmonary edema along with BP 190/100 Pt was admitted with HTN emergency and was started on Nitro drip Renal team was consulted for urgent HD. Pt was seen today during HD sessio. He is tolerating the session well with UF goal of 3L Pt has right IJ TC which is poorly functioning during HD session ROS: 12 systems review is negative except for some SOB[] - Allergies Allergies: Allergies irbesartan [From Avapro] Allergy (Severe, Verified 09/11/18 10:41) Blisters zolpidem [From Ambien] Adverse Reaction (Severe, Verified 09/11/18 10:41) made me go crazy, memory loss - Current Medications Current Medications: Current Medications Nitroglycerin/Dextrose 25 mg/ (N/A) 250 mls @ 3 mls/hr IV .[id number] JAIME Last Admin: 09/11/18 12:07 Dose: 3 mls/hr - Past Medical History Past Medical History (Chronic Problems): Chronic Problems (Last Reviewed 08/17/18 @ 09:55 by Judith Powell) Chronic renal failure, stage 5 (Chronic) History of non-ST elevation myocardial infarction (NSTEMI) (Chronic 01/21/11) History of left heart catheterization (Chronic 01/21/11) 10/13/[address] Barrientos @ [facility]:Per Dr. Jiménez @ [facility]: CABG recommended History of right and left heart catheterization (Chronic 05/24/18) Patent NICHOLAS to LAD, SVG to 1st OM and SVG to RCA. Elevated right heart pressures, significant Diastolic dysfunction per cath done @ [facility], Dr. Barrientos Stented coronary artery (Chronic) 2003, JASON to circumflex ; 10/13/2009 tsfer from [facility] to [facility], total of 5 bare metal stents to RCA per Dr. Barrientos @ [facility]: 3.5 X 18 Chef Kitchen Manager, followed distally by 3.0 X12 Chef Kitchen Manager to distal RCA;3.5 X 15 Chef Kitchen Manager, followed proximally by 4.0 X 18 Chef Kitchen Manager to Mid RCA; 4.0 X 18 Chef Kitchen Manager to Proximal RCA S/P CABG x 3 (Chronic 01/26/11) [facility] per Dr. Osito Hernandez: NICHOLAS to LAD, reverse SVG to OMbranch of CX, reverse SVG to PDA of RCA. PDA endarterectomy. Status post peripheral artery angioplasty with insertion of stent (Chronic ~2010) Right common iliac, [facility] Atherosclerotic heart disease of [place] coronary artery without angina pectoris (Chronic) 2003, JASON to circumflex ; 10/10/2009 tsfer from [facility] to [facility], total of 5 bare metal stents to RCA; CABG X 3 vessels @ [facility] 01/31/2011 (critical left main and restenosis of RCA stents) HLD (hyperlipidemia) (Chronic) HTN (hypertension) (Chronic) PAD (peripheral artery disease) (Chronic) COPD (chronic obstructive pulmonary disease) (Chronic) Tobacco dependence (Chronic) CKD (chronic kidney disease) (Chronic) Leukocytosis (Chronic) Anemia (Chronic) BPH (benign prostatic hyperplasia) (Chronic) - Past Surgical History Surgical History: coronary bypass surgery, tonsillectomy - Social History Smoking Status: Light Smoker (<10/day) - Family History Maternal Family History: Family History (Last Reviewed 08/17/18 @ 09:55 by Judith Powell) Father CAD (coronary artery disease) Hypertension Kidney disease CVA (cerebral vascular accident) Other Cancer History Items: Heart Disease Paternal Family History: Family History (Last Reviewed 08/17/18 @ 09:55 by Judith Powell) Father CAD (coronary artery disease) Hypertension Kidney disease CVA (cerebral vascular accident) Other Cancer History Items: Heart Disease Patient Problems: Active and Suspected Problems (Last Reviewed 08/17/18 @ 09:55 by Judith Powell) ESRD (end stage renal disease) (Acute) Hypertensive emergency (Acute) - Physical Exam General: Alert, Oriented x3 HEENT: Atraumatic Oral: Moist Mucosa Neck: Supple, No JVD Lungs: Short of Breath, - - B/L crackles Cardiovascular: Regular rate, Normal S1, Normal S2 Abdomen: Bowel Sounds Present, Soft, Non Tender Extremities: No clubbing, No cyanosis, - - +2 edema of LE Skin: No rashes Musculoskeletal: No Tenderness to Palpation of Joints or Extremities Lymphatic: No Cervical, Supraclavicular, or Inguinal Adenopathy Neurological: Cranial nerves II-XII grossly intact, Neuro grossly intact Psych/Mental Status: Normal Affect Vital Signs Temp Pulse Resp BP Pulse Ox 98 F 64 20 H 162/57 H 99 09/11/18 16:00 09/11/18 16:00 09/11/18 16:00 09/11/18 16:00 09/11/18 16:00 Oxygen Delivery Method Bi-pap Weight: 84.5 kg Body Mass Index (BMI) 28.3 Finger Stick Blood Glucose 200 Laboratory Tests Past 24 Hrs 09/11/18 09/11/18 09/11/18 11:11 11:15 11:15 WBC 17.8 H RBC 3.43 L Hgb 10.7 L Hct 33.8 L MCV 98.5 H MCH 31.2 MCHC 31.7 L RDW 16.5 H RDW Differential 59.0 H Plt Count 173 MPV 10.3 Immature Gran % (Auto) 0.200 Neut % (Auto) 92.1 H Lymph % (Auto) 3.5 L [place] % (Auto) 3.9 Eos % (Auto) 0.2 Baso % (Auto) 0.1 Absolute Neuts (auto) 16.4 H Absolute Lymphs (auto) 0.63 L Total Counted Not Reportable Specimen Type ART Sample Site R Radial pH 7.43 Bicarbonate Actual 23.3 POC Total CO2 24 Base Excess -1 O2 Saturation 99 O2 % 45 ABG pCO2 35.2 ABG pO2 130 H Clay Test POS O2 Delivery Device Bi / C PAP EPAP 8 IPAP 18 Blood Gas Notified Whom ED Blood Gas Notified Time 1100 Sodium 132 L Potassium 5.5 H Chloride 94 L Carbon Dioxide 18.0 L Anion Gap 20 H BUN 102 H* Creatinine 6.05 H Estim Creat Clear Calc 11.62 Est GFR (MDRD) Af Amer 12 L Est GFR (MDRD) Non-Af 10 L BUN/Creatinine Ratio 16.9 Glucose 130 H Lactic Acid Calcium 9.1 Troponin I 0.023 B-Natriuretic Peptide 09/11/18 09/11/18 11:17 11:17 WBC RBC Hgb Hct MCV MCH MCHC RDW RDW Differential Plt Count MPV Immature Gran % (Auto) Neut % (Auto) Lymph % (Auto) [place] % (Auto) Eos % (Auto) Baso % (Auto) Absolute Neuts (auto) Absolute Lymphs (auto) Total Counted Specimen Type Sample Site pH Bicarbonate Actual POC Total CO2 Base Excess O2 Saturation O2 % ABG pCO2 ABG pO2 Clay Test O2 Delivery Device EPAP IPAP Blood Gas Notified Whom Blood Gas Notified Time Sodium Potassium Chloride Carbon Dioxide Anion Gap BUN Creatinine Estim Creat Clear Calc Est GFR (MDRD) Af Amer Est GFR (MDRD) Non-Af BUN/Creatinine Ratio Glucose Lactic Acid 0.9 Calcium Troponin I B-Natriuretic Peptide 2028.2 H Assessment/Plan All Active Problems (Last Reviewed 08/17/18 @ 09:55 by Judith Powell) DAI (acute kidney injury) (Acute) ESRD (end stage renal disease) (Acute) Hypertensive emergency (Acute) S/P dialysis catheter insertion (Acute 05/22/18) History of thoracentesis (Acute 05/22/18) Acute renal failure superimposed on chronic kidney disease (Acute) Acute respiratory failure with hypoxia (Acute) Diastolic CHF (Acute) 1- ESRD on MWF. Pt goes to [facility] in [place] HD session was arranged urgently for pulmonary edema: BQ 250, DQ 600, UF 3L, 2K bath. HD access is right IJ TC UE AVF is still maturing Will re evaluate the need of HD tomorrow 2- Anemia: Hgb >10. will continue to monitor for now 3- hypertensive emergency. BP is better. On Nitro drip Resume home BP meds UF with HD 4- acute hypoxemic RF from pulmonary edema On BiPAP. UF of 3 L today Renal team will continue to follow MACIEL JACQUES
--- NOTE | 2018-09-11 18:24 | DIALYSIS ---
Hemodialysis x 3.75 hours with 2K bath; Tolerated well. Cramped at periods last hour of tx. Removed = -2400; RIJ CVC capped & locked with heparin per lumen fill volume. RIJ dressing changed per protocol. CHG dressing applied; Tolerated well. Report given.
--- NOTE | 2018-09-11 20:03 | PCM.HP.STD ---
Problem List (1) DAI (acute kidney injury) Status: Acute (2) ESRD (end stage renal disease) Status: Chronic (3) Diastolic CHF Status: Acute Qualifiers: Heart failure chronicity: acute on chronic Qualified Code(s): I50.33 - Acute on chronic diastolic (congestive) heart failure (4) HLD (hyperlipidemia) Status: Chronic Qualifiers: (5) HTN (hypertension) Status: Chronic Qualifiers: (6) PAD (peripheral artery disease) Status: Chronic (7) COPD (chronic obstructive pulmonary disease) Status: Chronic Qualifiers: (8) Anemia Status: Chronic (9) BPH (benign prostatic hyperplasia) Status: Chronic Qualifiers: History of Present Illness Date of Admission: 09/11/18 Chief Complaint: SOB The patient is a 67 year old M with a PMH as below presents with a 1 day h/o SOB. It began this morning at 1 am and some what resolved when he got up and then he had it again at 6 am which is why he presented to the ER. He was unable to go to his dialysis session today. In the ED he was hypertensive to 171 systolic and was SOB. He presented on BiPAP from EMS. In the ER he was found to be hypoxic on the ABG with a PaO2 of 130 while on BiPAP. Pro-BNP was close to his baseline, but CXR did demonstrate vascular congestion and pleural effusions. He was started on a nitro gtt and nephrology was consulted for dialysis. He denies eating excessively at [facility] and he closely monitors his salt intake. On admission he was 189# and after dialysis he is 178#. Past Medical History Past Medical History (Chronic Problems): Chronic Problems (Last Reviewed 08/17/18 @ 09:55 by Judith Powell) Chronic renal failure, stage 5 (Chronic) ESRD (end stage renal disease) (Chronic) History of non-ST elevation myocardial infarction (NSTEMI) (Chronic 01/21/11) History of left heart catheterization (Chronic 01/21/11) 10/13/[address] Barrientos @ [facility]:Per Dr. Jiménez @ [facility]: CABG recommended History of right and left heart catheterization (Chronic 05/24/18) Patent NICHOLAS to LAD, SVG to 1st OM and SVG to RCA. Elevated right heart pressures, significant [facility] coronary artery (Chronic) 2003, JASON to circumflex ; 10/13/2009 tsfer from [facility] to [facility], total of 5 bare metal st[facility].5 X 18 Abrasive Sawyer, followed distally by 3.0 X12 Abrasive Sawyer to distal RCA;3.5 X 15 Abrasive Sawyer, followed proximally by 4.0 X 18 Abrasive Sawyer to Mid RCA; 4.0 X 18 Abrasive Sawyer to Proximal RCA S/P CABG x 3 (Chronic 01/26/11) [facility] per Dr. Osito Hernandez: NICHOLAS to LAD, reverse SVG to OMbranch of CX, reverse SVG to PDA of RCA. PDA endarterectomy. Status post peripheral artery angioplasty with insertion of stent (Chronic ~2010) Right common iliac, [facility] Atherosclerotic heart disease of [place] coronary artery without angina pectoris (Chronic) 2003, JASON to circumflex ; 10/10/2009 tsfer from [facility] to [facility], total of 5 bare metal stents to RCA; CABG X 3 vessels @ [facility] 01/31/2011 (critical left main and restenosis of RCA stents) HLD (hyperlipidemia) (Chronic) HTN (hypertension) (Chronic) PAD (peripheral artery disease) (Chronic) COPD (chronic obstructive pulmonary disease) (Chronic) Tobacco dependence (Chronic) CKD (chronic kidney disease) (Chronic) Leukocytosis (Chronic) Anemia (Chronic) BPH (benign prostatic hyperplasia) (Chronic) Medical History: Medical History (Last Reviewed 08/17/18 @ 09:55 by Judith Powell) History of non-ST elevation myocardial infarction (NSTEMI) (Chronic) Onset Date: 01/21/11 I25.2 Atherosclerotic heart disease of [place] coronary artery without angina pectoris (Chronic) I25.10 2003, JASON to circumflex ; 10/10/2009 tsfer from [facility] to [facility], total of 5 bare metal stents to RCA; CABG X 3 vessels @ [facility] 01/31/2011 (critical left main and restenosis of RCA stents) Acute renal failure superimposed on chronic kidney disease (Acute) N17.9, N18.9 Diastolic CHF (Acute) I50.30 HLD (hyperlipidemia) (Chronic) E78.5 HTN (hypertension) (Chronic) I10 PAD (peripheral artery disease) (Chronic) I73.9 COPD (chronic obstructive pulmonary disease) (Chronic) J44.9 Tobacco dependence (Chronic) F17.200 CKD (chronic kidney disease) (Chronic) N18.9 Leukocytosis (Chronic) D72.829 Anemia (Chronic) D64.9 BPH (benign prostatic hyperplasia) (Chronic) N40.0 Allergies irbesartan [From Avapro] Allergy (Severe, Verified 09/11/18 10:41) Blisters zolpidem [From Ambien] Adverse Reaction (Severe, Verified 09/11/18 10:41) made me go crazy, memory loss Home Medications: Ambulatory Orders Medication Instructions Recorded Ropinirole HCl [Requip] 1 mg PO QHS 01/28/18 Rosuvastatin Calcium [Crestor] 40 mg PO QHS 01/28/18 Albuterol Aerosols [Ventolin 2.5 mg INHALATION Q4H PRN 05/10/18 Aerosols] Amlodipine [Norvasc] 10 mg PO DAILY 05/10/18 bumetanide 2 mg tablet 2 mg PO BID tab 06/29/18 Lactulose 15 ml PO DAILY PRN 07/23/18 Alprazolam [Xanax] 0.5 mg PO TID PRN 08/25/18 Ferric Citrate [Auryxia] 210 mg PO BIDAC 08/25/18 Prednisone 10 mg PO DAILY 08/25/18 Aspirin E.C. [Ecotrin] 81 mg PO DAILY@0800 09/11/18 Carvedilol [Coreg (Beta Kadi)] 25 mg PO BID 09/11/18 Clopidogrel Bisulfate [Plavix] 75 mg PO DAILY 09/11/18 Ipratropium/Albuterol Sulfate 3 ml INHALATION Q4H PRN 09/11/18 [Duoneb] Isosorbide Mononitrate [Isosorbide 30 mg PO DAILY 09/11/18 Mononitrate ER] Sennosides [Senna Lax] 8.6 mg PO QHS PRN 09/11/18 Sucroferric Oxyhydroxide [Velphoro] 1,000 mg PO TID 09/11/18 Tamsulosin HCl [Flomax] 0.4 mg PO BID 09/11/18 hydrALAZINE [Apresoline] 25 mg PO BID 09/11/18 Surgical History: Surgical History (Last Reviewed 08/17/18 @ 09:55 by Judith Powell) History of left heart catheterization (Chronic) Onset Date: 01/21/11 Z98.890 10/13/[address] Barrientos @ [facility]:Per Dr. Jiménez @ [facility]: CABG recommended S/P dialysis catheter insertion (Acute) Onset Date: 05/22/18 Z95.828, Z99.2 Right internal jugular access per Dr. Demian Lua History of right and left heart catheterization (Chronic) Onset Date: 05/24/18 Z98.890 Patent NICHOLAS to LAD, SVG to 1st OM and SVG to RCA. Elevated right heart pressures, significant Diastolic dysfunction per cath done @ [facility], Dr. Barrientos History of thoracentesis (Acute) Onset Date: 05/22/18 Z98.890 1700 cc removed from right side Stented coronary artery (Chronic) Z95.5 2003, JASON to circumflex ; 10/13/2009 tsfer from [facility] to [facility], total of 5 bare metal stents to RCA per Dr. Barrientos @ [facility]: 3.5 X 18 Abrasive Sawyer, followed distally by 3.0 X12 Abrasive Sawyer to distal RCA;3.5 X 15 Abrasive Sawyer, followed proximally by 4.0 X 18 Abrasive Sawyer to Mid RCA; 4.0 X 18 Abrasive Sawyer to Proximal RCA S/P CABG x 3 (Chronic) Onset Date: 01/26/[address] [facility] per Dr. Osito Rivasline: NICHOLAS to LAD, reverse SVG to OMbranch of CX, reverse SVG to PDA of RCA. PDA endarterectomy. Surgical History: coronary bypass surgery, tonsillectomy Smoking Status: Light Smoker (<10/day) - *Family History Maternal Family History: Family History (Last Reviewed 08/17/18 @ 09:55 by Judith Powell) Father CAD (coronary artery disease) Hypertension Kidney disease CVA (cerebral vascular accident) Other Cancer History Items: Heart Disease Paternal Family History: Family History (Last Reviewed 08/17/18 @ 09:55 by Judith Powell) Father CAD (coronary artery disease) Hypertension Kidney disease CVA (cerebral vascular accident) Other Cancer History Items: Heart Disease Review of Systems Constitutional: Denies: Chills, Fever, Weight Change HEENT: Denies: Head Aches, Sinus Congestion, Sinus Drainage Cardiovascular: Reports: Edema, Orthopnea. Denies: Chest Pain, Palpitations Respiratory: Reports: Shortness of Breath. Denies: Cough, Shortness of breath at rest, Sputum production Gastrointestinal: Denies: Abdominal Pain, Nausea, Vomiting Genitourinary: Denies: Dysuria Musculoskeletal: Denies: Joint Pain, Joint Tenderness Skin: Denies: Rash, Wounds Neurological: Denies: Numbness, Tingling, Focal weakness Psychiatric: Denies: Anxiety, Depression Hematologic/ Lymphatic: Denies: Easy Bruising, Easy Bleeding VTE Information - Inpt Only VTE Present on Admission: No Patient Problems: Active and Suspected Problems (Last Reviewed 08/17/18 @ 09:55 by Judith Powell) Hypertensive emergency (Acute) - Physical Exam General: Alert, Oriented x3, Cooperative, No apparent distress HEENT: Atraumatic, PERRLA, EOMI, Normocephalic Oral: Moist Mucosa Neck: Supple, No JVD, Negative Carotid Bruits Lungs: Normal air movement, Diminished, Rales, Wheezes Cardiovascular: Regular rate, Regular Rhythm, Normal S1, Normal S2, No murmurs Abdomen: Soft, Non Tender, Non-Distended, No Hepato-splenomegaly Extremities: Edema - 1-2+ pitting edema b/l LE Skin: No rashes, No breakdown Neurological: Neuro grossly intact, Sensory exam intact to light touch and pain Psych/Mental Status: Normal Affect, Appropriate Vital Signs Temp Pulse Resp BP Pulse Ox 98 F 69 18 144/63 H 97 09/11/18 18:25 09/11/18 19:00 09/11/18 19:00 09/11/18 19:00 09/11/18 19:00 Oxygen Delivery Method Bi-pap Weight: 178 lb 9.191 oz Body Mass Index (BMI) 28.3 Finger Stick Blood Glucose 200 Intake and Output for Last 24 Hours 09/09/18 09/10/18 09/11/18 23:59 23:59 23:59 Output Total 2400 / 2400 Balance -2400 / -2400 Laboratory Tests Past 24 Hrs 09/11/18 09/11/18 09/11/18 11:11 11:15 11:15 WBC 17.8 H RBC 3.43 L Hgb 10.7 L Hct 33.8 L MCV 98.5 H MCH 31.2 MCHC 31.7 L RDW 16.5 H RDW Differential 59.0 H Plt Count 173 MPV 10.3 Immature Gran % (Auto) 0.200 Neut % (Auto) 92.1 H Lymph % (Auto) 3.5 L [place] % (Auto) 3.9 Eos % (Auto) 0.2 Baso % (Auto) 0.1 Absolute Neuts (auto) 16.4 H Absolute Lymphs (auto) 0.63 L Total Counted Not Reportable Specimen Type ART Sample Site R Radial pH 7.43 Bicarbonate Actual 23.3 POC Total CO2 24 Base Excess -1 O2 Saturation 99 O2 % 45 ABG pCO2 35.2 ABG pO2 130 H Clay Test POS O2 Delivery Device Bi / C PAP EPAP 8 IPAP 18 Blood Gas Notified Whom ED MD Blood Gas Notified Time 1100 Sodium 132 L Potassium 5.5 H Chloride 94 L Carbon Dioxide 18.0 L Anion Gap 20 H BUN 102 H* Creatinine 6.05 H Estim Creat Clear Calc 11.62 Est GFR (MDRD) Af Amer 12 L Est GFR (MDRD) Non-Af 10 L BUN/Creatinine Ratio 16.9 Glucose 130 H Lactic Acid Calcium 9.1 Troponin I 0.023 B-Natriuretic Peptide 09/11/18 09/11/18 11:17 11:17 WBC RBC Hgb Hct MCV MCH MCHC RDW RDW Differential Plt Count MPV Immature Gran % (Auto) Neut % (Auto) Lymph % (Auto) [place] % (Auto) Eos % (Auto) Baso % (Auto) Absolute Neuts (auto) Absolute Lymphs (auto) Total Counted Specimen Type Sample Site pH Bicarbonate Actual POC Total CO2 Base Excess O2 Saturation O2 % ABG pCO2 ABG pO2 Clay Test O2 Delivery Device EPAP IPAP Blood Gas Notified Whom Blood Gas Notified Time Sodium Potassium Chloride Carbon Dioxide Anion Gap BUN Creatinine Estim Creat Clear Calc Est GFR (MDRD) Af Amer Est GFR (MDRD) Non-Af BUN/Creatinine Ratio Glucose Lactic Acid 0.9 Calcium Troponin I B-Natriuretic Peptide 2029.2 H Assessment/Plan All Active Problems (Last Reviewed 08/17/18 @ 09:55 by Judith Powell) DAI (acute kidney injury) (Acute) Hypertensive emergency (Acute) S/P dialysis catheter insertion (Acute 05/22/18) History of thoracentesis (Acute 08/06/18) Acute renal failure superimposed on chronic kidney disease (Acute) Acute respiratory failure with hypoxia (Acute) Diastolic CHF (Acute) 1. Acute hypoxic respiratory failure 2/2 acute on chronic diastolic heart failure/HTN/HLD - Will DC the nitro gtt - Will await to see if he will need dialysis tomorrow for the fluid overload state - Will continue with Bumex though he states that he not making much urine, will bladder scan to make sure there is no obstructive process given his h/o BPH - PT/OT - C/w crestor - I&O and daily weights - Fluid restriction 1500 cc daily - c/w Norvasc, Coreg, hydralazine and imdur - He recently had a heart cath and echo since March which showed diastolic dysfunction with normal EF and moderate pulm HTN 2. ESRD with DAI - baseline Cr appears to be around 2-2.5 currently around 6 on admission - C/s to nephrology for dialysis tonight - removed 2.4 L, he usually has between 2.4 to 3.2 L removed on MWF - recent LUE fistula placed - Has a right IJ access 3. PAD - stable - c/w imdur, ASA and Plavix 4. COPD - Stable - probably complicating his SOB - c/w his home inhaler and prednisone 5. BPH - stable - On flomax - states he recently had a cystoscopy at [place] which was normal as well as a normal PSA 6. Anemia of chronic disease - given iron sucrose today before dialysis - c/w home sucroferric replacement as well as ferric citrate - H/H is at baseline around 10.7 7. RLS - stable - c/w requip DVT: SCD and Heparin Diet: Cardiac with a fluid restriction Code Visit Inpatient E&M: [id number] Init Hosp L3
--- NOTE | 2018-09-11 20:13 | HP.PCM_ITS ---
Problem List (1) DAI (acute kidney injury) Status: Acute (2) ESRD (end stage renal disease) Status: Chronic (3) Diastolic CHF Status: Acute Qualifiers: Heart failure chronicity: acute on chronic Qualified Code(s): I50.33 - Acute on chronic diastolic (congestive) heart failure (4) HLD (hyperlipidemia) Status: Chronic Qualifiers: (5) HTN (hypertension) Status: Chronic Qualifiers: (6) PAD (peripheral artery disease) Status: Chronic (7) COPD (chronic obstructive pulmonary disease) Status: Chronic Qualifiers: (8) Anemia Status: Chronic (9) BPH (benign prostatic hyperplasia) Status: Chronic Qualifiers: History of Present Illness Date of Admission: 09/11/18 Chief Complaint: SOB The patient is a 67 year old M with a PMH as below presents with a 1 day h/o SOB. It began this morning at 1 am and some what resolved when he got up and then he had it again at 6 am which is why he presented to the ER. He was unable to go to his dialysis session today. In the ED he was hypertensive to 171 systolic and was SOB. He presented on BiPAP from EMS. In the ER he was found to be hypoxic on the ABG with a PaO2 of 130 while on BiPAP. Pro-BNP was close to his baseline, but CXR did demonstrate vascular congestion and pleural effusions. He was started on a nitro gtt and nephrology was consulted for dialysis. He denies eating excessively at [facility] and he closely monitors his salt intake. On admission he was 189# and after dialysis he is 178#. Past Medical History Past Medical History (Chronic Problems): Chronic Problems (Last Reviewed 08/17/18 @ 09:55 by Judith Powell) Chronic renal failure, stage 5 (Chronic) ESRD (end stage renal disease) (Chronic) History of non-ST elevation myocardial infarction (NSTEMI) (Chronic 01/21/11) History of left heart catheterization (Chronic 01/21/11) 10/13/[address] Barrientos @ [facility]:Per Dr. Jiménez @ [facility]: CABG recommended History of right and left heart catheterization (Chronic 05/24/18) Patent NICHOLAS to LAD, SVG to 1st OM and SVG to RCA. Elevated right heart pressures, significant Diastolic [facility] Stented coronary artery (Chronic) 2003, JASON to circumflex ; 10/13/[address] [facility] to [facility], total of 5 bare metal st[facility] 3.5 X 18 Premium Card Cancellation Clerk, followed distally by 3.0 X12 Premium Card Cancellation Clerk to distal RCA;3.5 X 15 Premium Card Cancellation Clerk, followed proximally by 4.0 X 18 Premium Card Cancellation Clerk to Mid RCA; 4.0 X 18 Premium Card Cancellation Clerk to Proximal RCA S/P CABG x 3 (Chronic 01/26/11) [facility] per Dr. Osito Hernandez: NICHOLAS to LAD, reverse SVG to OMbranch of CX, reverse SVG to PDA of RCA. PDA endarterectomy. Status post peripheral artery angioplasty with insertion of stent (Chronic ~2010) Right common iliac, [facility] Atherosclerotic heart disease of [place] coronary artery without angina pectoris (Chronic) 2003, JASON to circumflex ; 10/10/[address] [facility] to [facility], total of 5 bare metal stents to RCA; CABG X 3 vessels @ [facility] 01/31/2011 (critical left main and restenosis of RCA stents) HLD (hyperlipidemia) (Chronic) HTN (hypertension) (Chronic) PAD (peripheral artery disease) (Chronic) COPD (chronic obstructive pulmonary disease) (Chronic) Tobacco dependence (Chronic) CKD (chronic kidney disease) (Chronic) Leukocytosis (Chronic) Anemia (Chronic) BPH (benign prostatic hyperplasia) (Chronic) Medical History: Medical History (Last Reviewed 08/17/18 @ 09:55 by Judith Powell) History of non-ST elevation myocardial infarction (NSTEMI) (Chronic) Onset Date: 01/21/11 I25.2 Atherosclerotic heart disease of [place] coronary artery without angina pectoris (Chronic) I25.10 2003, JASON to circumflex ; 10/10/[address] [facility] to [facility], total of 5 bare metal stents to RCA; CABG X 3 vessels @ [facility] 01/31/2011 (critical left main and restenosis of RCA stents) Acute renal failure superimposed on chronic kidney disease (Acute) N17.9, N18.9 Diastolic CHF (Acute) I50.30 HLD (hyperlipidemia) (Chronic) E78.5 HTN (hypertension) (Chronic) I10 PAD (peripheral artery disease) (Chronic) I73.9 COPD (chronic obstructive pulmonary disease) (Chronic) J44.9 Tobacco dependence (Chronic) F17.200 CKD (chronic kidney disease) (Chronic) N18.9 Leukocytosis (Chronic) D72.829 Anemia (Chronic) D64.9 BPH (benign prostatic hyperplasia) (Chronic) N40.0 Allergies irbesartan [From Avapro] Allergy (Severe, Verified 09/11/18 10:41) Blisters zolpidem [From Ambien] Adverse Reaction (Severe, Verified 09/11/18 10:41) made me go crazy, memory loss Home Medications: Ambulatory Orders Medication Instructions Recorded Ropinirole HCl [Requip] 1 mg PO QHS 01/28/18 Rosuvastatin Calcium [Crestor] 40 mg PO QHS 01/28/18 Albuterol Aerosols [Ventolin 2.5 mg INHALATION Q4H PRN 05/10/18 Aerosols] Amlodipine [Norvasc] 10 mg PO DAILY 05/10/18 bumetanide 2 mg tablet 2 mg PO BID tab 06/29/18 Lactulose 15 ml PO DAILY PRN 07/23/18 Alprazolam [Xanax] 0.5 mg PO TID PRN 08/25/18 Ferric Citrate [Auryxia] 210 mg PO BIDAC 08/25/18 Prednisone 10 mg PO DAILY 08/25/18 Aspirin E.C. [Ecotrin] 81 mg PO DAILY@0800 09/11/18 Carvedilol [Coreg (Beta Kadi)] 25 mg PO BID 09/11/18 Clopidogrel Bisulfate [Plavix] 75 mg PO DAILY 09/11/18 Ipratropium/Albuterol Sulfate 3 ml INHALATION Q4H PRN 09/11/18 [Duoneb] Isosorbide Mononitrate [Isosorbide 30 mg PO DAILY 09/11/18 Mononitrate ER] Sennosides [Senna Lax] 8.6 mg PO QHS PRN 09/11/18 Sucroferric Oxyhydroxide [Velphoro] 1,000 mg PO TID 09/11/18 Tamsulosin HCl [Flomax] 0.4 mg PO BID 09/11/18 hydrALAZINE [Apresoline] 25 mg PO BID 09/11/18 Surgical History: Surgical History (Last Reviewed 08/17/18 @ 09:55 by Judith Powell) History of left heart catheterization (Chronic) Onset Date: 01/21/11 Z98.890 10/13/[address] Barrientos @ [facility]:Per Dr. Jiménez @ [facility]: CABG recommended S/P dialysis catheter insertion (Acute) Onset Date: 05/22/18 Z95.828, Z99.2 Right internal jugular access per Dr. Demian Lua History of right and left heart catheterization (Chronic) Onset Date: 05/24/18 Z98.890 Patent NICHOLAS to LAD, SVG to 1st OM and SVG to RCA. Elevated right heart pressures, significant Diastolic dysfunction per cath done @ [facility], Dr. Barrientos History of thoracentesis (Acute) Onset Date: 05/22/18 Z98.890 1700 cc removed from right side Stented coronary artery (Chronic) Z95.5 2003, JASON to circumflex ; 10/13/[address] [facility] to [facility], total of 5 bare metal stents to RCA per Dr. Barrientos @ [facility]: 3.5 X 18 Premium Card Cancellation Clerk, followed distally by 3.0 X12 Premium Card Cancellation Clerk to distal RCA;3.5 X 15 Premium Card Cancellation Clerk, followed proximally by 4.0 X 18 Premium Card Cancellation Clerk to Mid RCA; 4.0 X 18 Premium Card Cancellation Clerk to Proximal RCA S/P CABG x 3 (Chronic) Onset Date: 01/26/[address] [facility] per Dr. Osito Rivasline: NICHOLAS to LAD, re verse SVG to OMbranch of CX, reverse SVG to PDA of RCA. PDA endarterectomy. Surgical History: coronary bypass surgery, tonsillectomy Smoking Status: Light Smoker (<10/day) - *Family History Maternal Family History: Family History (Last Reviewed 08/17/18 @ 09:55 by Judith Powell) Father CAD (coronary artery disease) Hypertension Kidney disease CVA (cerebral vascular accident) Other Cancer History Items: Heart Disease Paternal Family History: Family History (Last Reviewed 08/17/18 @ 09:55 by Judith Powell) Father CAD (coronary artery disease) Hypertension Kidney disease CVA (cerebral vascular accident) Other Cancer History Items: Heart Disease Review of Systems Constitutional: Denies: Chills, Fever, Weight Change HEENT: Denies: Head Aches, Sinus Congestion, Sinus Drainage Cardiovascular: Reports: Edema, Orthopnea. Denies: Chest Pain, Palpitations Respiratory: Reports: Shortness of Breath. Denies: Cough, Shortness of breath at rest, Sputum production Gastrointestinal: Denies: Abdominal Pain, Nausea, Vomiting Genitourinary: Denies: Dysuria Musculoskeletal: Denies: Joint Pain, Joint Tenderness Skin: Denies: Rash, Wounds Neurological: Denies: Numbness, Tingling, Focal weakness Psychiatric: Denies: Anxiety, Depression Hematologic/ Lymphatic: Denies: Easy Bruising, Easy Bleeding VTE Information - Inpt Only VTE Present on Admission: No Patient Problems: Active and Suspected Problems (Last Reviewed 08/17/18 @ 09:55 by Judith Powell) Hypertensive emergency (Acute) - Physical Exam General: Alert, Oriented x3, Cooperative, No apparent distress HEENT: Atraumatic, PERRLA, EOMI, Normocephalic Oral: Moist Mucosa Neck: Supple, No JVD, Negative Carotid Bruits Lungs: Normal air movement, Diminished, Rales, Wheezes Cardiovascular: Regular rate, Regular Rhythm, Normal S1, Normal S2, No murmurs Abdomen: Soft, Non Tender, Non-Distended, No Hepato-splenomegaly Extremities: Edema - 1-2+ pitting edema b/l LE Skin: No rashes, No breakdown Neurological: Neuro grossly intact, Sensory exam intact to light touch and pain Psych/Mental Status: Normal Affect, Appropriate Vital Signs Temp Pulse Resp BP Pulse Ox 98 F 69 18 144/63 H 97 09/11/18 18:25 09/11/18 19:00 09/11/18 19:00 09/11/18 19:00 09/11/18 19:00 Oxygen Delivery Method Bi-pap Weight: 178 lb 9.191 oz Body Mass Index (BMI) 28.3 Finger Stick Blood Glucose 200 Intake and Output for Last 24 Hours 09/09/18 09/10/18 09/11/18 23:59 23:59 23:59 Output Total 2400 / 2400 Balance -2400 / -2400 Laboratory Tests Past 24 Hrs 09/11/18 09/11/18 09/11/18 11:11 11:15 11:15 WBC 17.8 H RBC 3.43 L Hgb 10.7 L Hct 33.8 L MCV 98.5 H MCH 31.2 MCHC 31.7 L RDW 16.5 H RDW Differential 59.0 H Plt Count 173 MPV 10.3 Immature Gran % (Auto) 0.200 Neut % (Auto) 92.1 H Lymph % (Auto) 3.5 L [place] % (Auto) 3.9 Eos % (Auto) 0.2 Baso % (Auto) 0.1 Absolute Neuts (auto) 16.4 H Absolute Lymphs (auto) 0.63 L Total Counted Not Reportable Specimen Type ART Sample Site R Radial pH 7.43 Bicarbonate Actual 23.3 POC Total CO2 24 Base Excess -1 O2 Saturation 99 O2 % 45 ABG pCO2 35.2 ABG pO2 130 H Clay Test POS O2 Delivery Device Bi / C PAP EPAP 8 IPAP 18 Blood Gas Notified Whom ED MD Blood Gas Notified Time 1100 Sodium 132 L Potassium 5.5 H Chloride 94 L Carbon Dioxide 18.0 L Anion Gap 20 H BUN 102 H* Creatinine 6.05 H Estim Creat Clear Calc 11.62 Est GFR (MDRD) Af Amer 12 L Est GFR (MDRD) Non-Af 10 L BUN/Creatinine Ratio 16.9 Glucose 130 H Lactic Acid Calcium 9.1 Troponin I 0.023 B-Natriuretic Peptide 09/11/18 09/11/18 11:17 11:17 WBC RBC Hgb Hct MCV MCH MCHC RDW RDW Differential Plt Count MPV Immature Gran % (Auto) Neut % (Auto) Lymph % (Auto) [place] % (Auto) Eos % (Auto) Baso % (Auto) Absolute Neuts (auto) Absolute Lymphs (auto) Total Counted Specimen Type Sample Site pH Bicarbonate Actual POC Total CO2 Base Excess O2 Saturation O2 % ABG pCO2 ABG pO2 Clay Test O2 Delivery Device EPAP IPAP Blood Gas Notified Whom Blood Gas Notified Time Sodium Potassium Chloride Carbon Dioxide Anion Gap BUN Creatinine Estim Creat Clear Calc Est GFR (MDRD) Af Amer Est GFR (MDRD) Non-Af BUN/Creatinine Ratio Glucose Lactic Acid 0.9 Calcium Troponin I B-Natriuretic Peptide 2029.2 H Assessment/Plan All Active Problems (Last Reviewed 08/17/18 @ 09:55 by Judith Powell) DAI (acute kidney injury) (Acute) Hypertensive emergency (Acute) S/P dialysis catheter insertion (Acute 05/22/18) History of thoracentesis (Acute 05/22/18) Acute renal failure superimposed on chronic kidney disease (Acute) Acute respiratory failure with hypoxia (Acute) Diastolic CHF (Acute) 1. Acute hypoxic respiratory failure 2/2 acute on chronic diastolic heart failure/HTN/HLD - Will DC the nitro gtt - Will await to see if he will need dialysis tomorrow for the fluid overload state - Will continue with Bumex though he states that he not making much urine, will bladder scan to make sure there is no obstructive process given his h/o BPH - PT/OT - C/w crestor - I&O and daily weights - Fluid restriction 1500 cc daily - c/w Norvasc, Coreg, hydralazine and imdur - He recently had a heart cath and echo since March which showed diastolic dysfunction with normal EF and moderate pulm HTN 2. ESRD with DAI - baseline Cr appears to be around 2-2.5 currently around 6 on admission - C/s to nephrology for dialysis tonight - removed 2.4 L, he usually has between 2.4 to 3.2 L removed on MWF - recent LUE fistula placed - Has a right IJ access 3. PAD - stable - c/w imdur, ASA and Plavix 4. COPD - Stable - probably complicating his SOB - c/w his home inhaler and prednisone 5. BPH - stable - On flomax - states he recently had a cystoscopy at [facility] which was normal as well as a normal PSA 6. Anemia of chronic disease - given iron sucrose today before dialysis - c/w home sucroferric replacement as well as ferric citrate - H/H is at baseline around 10.7 7. RLS - stable - c/w requip DVT: SCD and Heparin Diet: Cardiac with a fluid restriction Code Visit Inpatient E&M: 05135 Init Hosp L3
[2018-09-11] MEDS: Pramipexole Di-HCl 0.5 MG Tablet PO (22:36)
[2018-09-11] MEDS: Tamsulosin HCl 0.4 MG Capsule PO (22:36)
[2018-09-11] MEDS: Carvedilol 25 MG Tablet PO (22:36)
[2018-09-11] MEDS: Heparin Injection (Vial) 5,000 UNIT/ML VIAL 5000 UNIT SC (22:37)
[2018-09-11] MEDS: hydrALAZINE 25 MG Tablet PO (22:37)
[2018-09-11] MEDS: Atorvastatin Calcium 80 MG Tablet PO (22:43)
[2018-09-12] VITALS (19 sets, daily range): BP systolic 150–160; BP diastolic 61–67; PULSE 65–80; RESP 16–24; TEMP 36.8–37.2; O2SAT 95–97
[2018-09-12] MEDS: Ipratropium/Albuterol Sulfate 3 ML AMPUL.NEB INHALATION ×5 (02:43→23:52)
[2018-09-12 07:20] LABS: Absolute Lymphocyte Count 1.45 X10^3/ul (0.83-4.51); Absolute Neutrophil Count 8.7 X10^3/uL (2.0-7.7); Basophil# 0.02 X10^3/uL; Basophil% 0.2 % (0-1); Eosinophil# 0.07 X10^3/uL; Eosinophils% 0.6 % (0-5); Hematocrit 32.1 % (40-54); Hemoglobin 10.1 g/dl (13.0-16.5); Lymphocyte # 1.45 X10^3/ul (4.0); Lymphocyte % 12.6 % (19-41); Mean Corp Hgb Conc 31.5 g/gl (32-36); Mean Corpuscular Hgb 32.1 pg (27.0-32.0); Mean Corpuscular Volume 101.9 fL (80-94); Mean Platelet Vol. 10.6 fl (6.2-12.0); Monocyte# 1.23 X10^3/uL; Monocyte% 10.7 % (0-10); Neutrophil # 8.69 X10^3/uL (2.7-7.7); Neutrophil % 75.6 % (47-70); Platelet Count 205 K/mm3 (150-450); RBC Distribution Width CV 16.5 % (11.6-14.6); RBC Distribution Width SD 58.7 fl (35.1-43.9); Red Blood Count 3.15 M/mm3 (4.6-6.2); White Blood Count 11.5 K/mm3 (4.4-11.0)
[2018-09-12 07:24] LABS: POSITIVE COUNT NO; POSITIVE DIFFERENTIAL NO; POSITIVE MORPHOLOGY NO
[2018-09-12 07:38] LABS: Anion Gap 12 (5-15); BUN 59 mg/dL (7-18); BUN/Creat Ratio 14.1 RATIO (10-20); Calcium,Total 8.2 mg/dL (8.5-10.1); Chloride 94 mmol/L (98-107); Creatinine, Serum 4.17 mg/dL (0.70-1.30); EST Glomerular Filtration Rate 15 mL/min (>60); Est Glom Filt Rate - Afr Amer 19 mL/min (>60); Estimated Creatinine Clearance 16.86 ml/min; Glucose 91 mg/dL (74-106); Potassium 3.9 mmol/L (3.5-5.1); Sodium Level 131 mmol/L (136-145)
[2018-09-12] MEDS: hydrALAZINE 25 MG Tablet PO ×2 (10:39→21:16)
[2018-09-12] MEDS: Aspirin E.C. 81 MG Tablet PO (10:39)
[2018-09-12] MEDS: predniSONE 10 MG Tablet PO (10:39)
[2018-09-12] MEDS: Carvedilol 25 MG Tablet PO ×2 (10:41→21:21)
[2018-09-12] MEDS: Bumetanide 2 MG Tablet PO ×2 (10:41→18:00)
[2018-09-12] MEDS: Heparin Injection (Vial) 5,000 UNIT/ML VIAL 5000 UNIT SC ×2 (10:42→21:18)
[2018-09-12] MEDS: Tamsulosin HCl 0.4 MG Capsule PO ×2 (10:42→21:19)
[2018-09-12] MEDS: amLODIPine 10 MG Tablet PO (10:43)
[2018-09-12] MEDS: Clopidogrel Bisulfate 75 MG Tablet PO (10:43)
[2018-09-12] MEDS: Isosorbide Mononitrate 30 MG Tablet PO (10:43)
--- NOTE | 2018-09-12 11:04 | PCM.PN.HOSP ---
Patient Problems: Active and Suspected Problems (Last Reviewed 08/17/18 @ 09:55 by Judith Powell) Hypertensive emergency (Acute) Subjective: Feels better and is breathing better after dialysis, may need another short dialysis session today. Still with poor urine output. No complaints Vitals/I&O's: Vital Signs Temp Pulse Resp BP Pulse Ox 98.2 F 74 20 H 160/66 H 95 09/12/18 09:56 09/12/18 10:39 09/12/18 09:56 09/12/18 09:56 09/12/18 09:56 Oxygen Flow Rate (L/min) 2 Oxygen Delivery Method Nasal Cannula Weight: 180 lb 12.465 oz Body Mass Index (BMI) 28.3 Finger Stick Blood Glucose 200 Intake and Output for Last 24 Hours 09/10/18 09/11/18 09/12/18 23:59 23:59 23:59 Intake Total 380.8 / 380.8 0 / 0 Output Total 2550 / 2550 0 / 0 Balance -2169.2 / -2169.2 0 / 0 General: Alert, Oriented x3, Cooperative, No apparent distress HEENT: Atraumatic, PERRLA, EOMI, Normocephalic Oral: Moist Mucosa Neck: Supple, No JVD, Negative Carotid Bruits Lungs: Normal air movement, Diminished, Rales, Wheezes Cardiovascular: Regular rate, Regular Rhythm, Normal S1, Normal S2, No murmurs Abdomen: Soft, Non Tender, Non-Distended, No Hepato-splenomegaly Extremities: Edema - 1-2+ pitting edema b/l LE Skin: No rashes, No breakdown Neurological: Neuro grossly intact, Sensory exam intact to light touch and pain Psych/Mental Status: Normal Affect, Appropriate Laboratory Results 09/11/18 11:11: Specimen Type ART, Sample Site R Radial, pH 7.43, Bicarbonate Actual 23.3, POC Total CO2 24, Base Excess -1, O2 Saturation 99, O2 % 45, ABG pCO2 35.2, ABG pO2 130 H, Clay Test POS, O2 Delivery Device Bi / C PAP, EPAP 8, IPAP 18, Blood Gas Notified Whom ED , Blood Gas Notified Time 1100 09/11/18 11:15: WBC 17.8 H, RBC 3.43 L, Hgb 10.7 L, Hct 33.8 L, MCV 98.5 H, MCH 31.2, MCHC 31.7 L, RDW 16.5 H, RDW Differential 59.0 H, Plt Count 173, MPV 10.3, Immature Gran % (Auto) 0.200, Neut % (Auto) 92.1 H, Lymph % (Auto) 3.5 L, [place] % (Auto) 3.9, Eos % (Auto) 0.2, Baso % (Auto) 0.1, Absolute Neuts (auto) 16.4 H, Absolute Lymphs (auto) 0.63 L, Total Counted Not Reportable 09/11/18 11:15: Sodium 132 L, Potassium 5.5 H, Chloride 94 L, Carbon Dioxide 18.0 L, Anion Gap 20 H, BUN 102 H*, Creatinine 6.05 H, Estim Creat Clear Calc 11.62, Est GFR (MDRD) Af Amer 12 L, Est GFR (MDRD) Non-Af 10 L, BUN/Creatinine Ratio 16.9, Glucose 130 H, Calcium 9.1, Troponin I 0.023 09/11/18 11:17: Lactic Acid 0.9 09/11/18 11:17: B-Natriuretic Peptide 2029.2 H 09/12/18 06:20: WBC 11.5 H, RBC 3.15 L, Hgb 10.1 L, Hct 32.1 L, MCV 101.9 H, MCH 32.1 H, MCHC 31.5 L, RDW 16.5 H, RDW Differential 58.7 H, Plt Count 205, MPV 10.6, Immature Gran % (Auto) 0.300, Neut % (Auto) 75.6 H, Lymph % (Auto) 12.6 L, [place] % (Auto) 10.7 H, Eos % (Auto) 0.6, Baso % (Auto) 0.2, Absolute Neuts (auto) 8.7 H, Absolute Lymphs (auto) 1.45, Total Counted Not Reportable 09/12/18 06:20: Sodium 131 L, Potassium 3.9, Chloride 94 L, Carbon Dioxide 25.0, Anion Gap 12, BUN 59 H, Creatinine 4.17 H, Estim Creat Clear Calc 16.86, Est GFR (MDRD) Af Amer 19 L, Est GFR (MDRD) Non-Af 15 L, BUN/Creatinine Ratio 14.1, Glucose 91, Calcium 8.2 L Current Medications Albuterol Sulfate (Ventolin Aerosols) 2.5 mg INHALATION Q4H PRN PRN Reason: SHORTNESS OF BREATH Albuterol/Ipratropium (Duoneb) 3 ml INHALATION Q4H.RT [facility] Last Admin: 09/12/18 10:26 Dose: 3 ml Alprazolam (Xanax) 0.5 mg PO TID PRN PRN Reason: ANXIETY Amlodipine Besylate (Norvasc) 10 mg PO DAILY [facility] Last Admin: 09/12/18 10:43 Dose: 10 mg Aspirin (Ecotrin) 81 mg PO DAILY@0800 [facility] Last Admin: 09/12/18 10:39 Dose: 81 mg Atorvastatin Calcium (Lipitor) 80 mg PO QHS [facility] Last Admin: 09/11/18 22:43 Dose: 80 mg Bumetanide (Bumex) 2 mg PO BIDLX [facility] Last Admin: 09/12/18 10:41 Dose: 2 mg Calcium Acetate (Phoslo Gel Cap) 1,334 mg PO TIDCM [facility] Carvedilol (Coreg) 25 mg PO BID [facility] Last Admin: 09/12/18 10:41 Dose: 25 mg Clopidogrel Bisulfate (Plavix) 75 mg PO DAILY [facility] Last Admin: 09/12/18 10:43 Dose: 75 mg Ferrous [facility] ([facility]ous Sulfate) [facility] Heparin Sodium (Porcine) () 2,500 units IV UD PRN PRN Reason: HEPARIN FLUSH Heparin Sodium (Porcine) (Heparin Na) 5,000 unit SC Q12 [facility] Last Admin: 09/12/18 10:42 Dose: 5,000 unit Hydralazine HCl (Apresoline) 25 mg PO BID [facility] Last Admin: 09/12/18 10:39 Dose: 25 mg Isosorbide Mononitrate (Imdur) 30 mg PO DAILY [facility] Last Admin: 09/12/18 10:43 Dose: 30 mg Lactulose (Chronulac, Cephulac) 10 gm PO DAILY PRN PRN Reason: Constipation Magnesium Hydroxide (Milk Of Magnesia) 30 ml PO DAILY PRN PRN Reason: Constipation Pramipexole Dihydrochloride (Mirapex) 0.5 mg PO QHS [facility] Last Admin: 09/11/18 22:36 Dose: 0.5 mg Prednisone () 10 mg PO DAILY@0800 [facility] Last Admin: 09/12/18 10:39 Dose: 10 mg Senna (Senokot) 1 tablet PO QHS PRN PRN Reason: Constipation Sodium Chloride () 10 ml IV UD PRN PRN Reason: Dialysis Catheter Flush Last Admin: 09/11/18 20:14 Dose: 10 ml Tamsulosin HCl (Flomax) 0.4 mg PO BID [facility] Last Admin: 09/12/18 10:42 Dose: 0.4 mg Medical Necessity - Tobacco Use Smoking Status: Light Smoker (<10/day) Assessment/Plan All Active Problems (Last Reviewed 08/17/18 @ 09:55 by Judith Powell) DAI (acute kidney injury) (Acute) Hypertensive emergency (Acute) S/P dialysis catheter insertion (Acute 05/22/18) History of thoracentesis (Acute 05/22/18) Acute renal failure superimposed on chronic kidney disease (Acute) Acute respiratory failure with hypoxia (Acute) Diastolic CHF (Acute) 1. Acute hypoxic respiratory failure 2/2 acute on chronic diastolic heart failure/HTN/HLD - Since he has been oliguric as an outpatient, may have to rely on dialysis only, not sure bumex or lasix will be helpful - PT/OT - C/w crestor - I&O and daily weights - Fluid restriction 1500 cc daily - c/w Norvasc, Coreg, hydralazine and imdur - He recently had a heart cath and echo since March which showed diastolic dysfunction with normal EF and moderate pulm HTN 2. ESRD with DAI - baseline Cr appears to be around 2-2.5 currently around 6 on admission - C/s to nephrology for dialysis tonight - removed 2.4 L, he usually has between 2.4 to 3.2 L removed on MWF - recent LUE fistula placed - Has a right IJ access 3. PAD - stable - c/w imdur, ASA and Plavix 4. COPD - Stable - probably complicating his SOB - c/w his home inhaler and prednisone 5. BPH - stable - On flomax - states he recently had a cystoscopy at [facility] which was normal as well as a normal PSA 6. Anemia of chronic disease - given iron sucrose today before dialysis - c/w home ferric citrate - H/H is at baseline around 10.7 7. RLS - stable - c/w requip DVT: SCD and Heparin Diet: Cardiac with a fluid restriction Code Visit Inpatient E&M: 98965 Subs Hosp L2
--- NOTE | 2018-09-12 11:08 | PN_ITS ---
Patient Problems: Active and Suspected Problems (Last Reviewed 08/17/18 @ 09:55 by Judith Powell) Hypertensive emergency (Acute) Subjective: Feels better and is breathing better after dialysis, may need another short dialysis session today. Still with poor urine output. No complaints Vitals/I&O's: Vital Signs Temp Pulse Resp BP Pulse Ox 98.2 F 74 20 H 160/66 H 95 09/12/18 09:56 09/12/18 10:39 09/12/18 09:56 09/12/18 09:56 09/12/18 09:56 Oxygen Flow Rate (L/min) 2 Oxygen Delivery Method Nasal Cannula Weight: 180 lb 12.465 oz Body Mass Index (BMI) 28.3 Finger Stick Blood Glucose 200 Intake and Output for Last 24 Hours 09/10/18 09/11/18 09/12/18 23:59 23:59 23:59 Intake Total 380.8 / 380.8 0 / 0 Output Total 2550 / 2550 0 / 0 Balance -2169.2 / -2169.2 0 / 0 General: Alert, Oriented x3, Cooperative, No apparent distress HEENT: Atraumatic, PERRLA, EOMI, Normocephalic Oral: Moist Mucosa Neck: Supple, No JVD, Negative Carotid Bruits Lungs: Normal air movement, Diminished, Rales, Wheezes Cardiovascular: Regular rate, Regular Rhythm, Normal S1, Normal S2, No murmurs Abdomen: Soft, Non Tender, Non-Distended, No Hepato-splenomegaly Extremities: Edema - 1-2+ pitting edema b/l LE Skin: No rashes, No breakdown Neurological: Neuro grossly intact, Sensory exam intact to light touch and pain Psych/Mental Status: Normal Affect, Appropriate Laboratory Results 09/11/18 11:11: Specimen Type ART, Sample Site R Radial, pH 7.43, Bicarbonate Actual 23.3, POC Total CO2 24, Base Excess -1, O2 Saturation 99, O2 % 45, ABG pCO2 35.2, ABG pO2 130 H, Clay Test POS, O2 Delivery Device Bi / C PAP, EPAP 8, IPAP 18, Blood Gas Notified Whom ED , Blood Gas Notified Time 1100 09/11/18 11:15: WBC 17.8 H, RBC 3.43 L, Hgb 10.7 L, Hct 33.8 L, MCV 98.5 H, MCH 31.2, MCHC 31.7 L, RDW 16.5 H, RDW Differential 59.0 H, Plt Count 173, MPV 10.3, Immature Gran % (Auto) 0.200, Neut % (Auto) 92.1 H, Lymph % (Auto) 3.5 L, [place] % (Auto) 3.9, Eos % (Auto) 0.2, Baso % (Auto) 0.1, Absolute Neuts (auto) 16.4 H, A bsolute Lymphs (auto) 0.63 L, Total Counted Not Reportable 09/11/18 11:15: Sodium 132 L, Potassium 5.5 H, Chloride 94 L, Carbon Dioxide 18.0 L, Anion Gap 20 H, BUN 102 H*, Creatinine 6.05 H, Estim Creat Clear Calc 11.62, Est GFR (MDRD) Af Amer 12 L, Est GFR (MDRD) Non-Af 10 L, BUN/Creatinine Ratio 16.9, Glucose 130 H, Calcium 9.1, Troponin I 0.023 09/11/18 11:17: Lactic Acid 0.9 09/11/18 11:17: B-Natriuretic Peptide 2029.2 H 09/12/18 06:20: WBC 11.5 H, RBC 3.15 L, Hgb 10.1 L, Hct 32.1 L, MCV 101.9 H, MCH 32.1 H, MCHC 31.5 L, RDW 16.5 H, RDW Differential 58.7 H, Plt Count 205, MPV 10.6, Immature Gran % (Auto) 0.300, Neut % (Auto) 75.6 H, Lymph % (Auto) 12.6 L, Perkins % (Auto) 10.7 H, Eos % (Auto) 0.6, Baso % (Auto) 0.2, Absolute Neuts (auto) 8.7 H, Absolute Lymphs (auto) 1.45, Total Counted Not Reportable 09/12/18 06:20: Sodium 131 L, Potassium 3.9, Chloride 94 L, Carbon Dioxide 25.0, Anion Gap 12, BUN 59 H, Creatinine 4.17 H, Estim Creat Clear Calc 16.86, Est GFR (MDRD) Af Amer 19 L, Est GFR (MDRD) Non-Af 15 L, BUN/Creatinine Ratio 14.1, Glucose 91, Calcium 8.2 L Current Medications Albuterol Sulfate (Ventolin Aerosols) 2.5 mg INHALATION Q4H PRN PRN Reason: SHORTNESS OF BREATH Albuterol/Ipratropium (Duoneb) 3 ml INHALATION Q4H.RT [facility] Last Admin: 09/12/18 10:26 Dose: 3 ml Alprazolam (Xanax) 0.5 mg PO TID PRN PRN Reason: ANXIETY Amlodipine Besylate (Norvasc) 10 mg PO DAILY [facility] Last Admin: 09/12/18 10:43 Dose: 10 mg Aspirin (Ecotrin) 81 mg PO DAILY@0800 [facility] Last Admin: 09/12/18 10:39 Dose: 81 mg Atorvastatin Calcium (Lipitor) 80 mg PO QHS [facility] Last Admin: 09/11/18 22:43 Dose: 80 mg Bumetanide (Bumex) 2 mg PO BIDLX [facility] Last Admin: 09/12/18 10:41 Dose: 2 mg Calcium Acetate (Phoslo Gel Cap) 1,334 mg PO TIDCM [facility] Carvedilol (Coreg) 25 mg PO BID [facility] Last Admin: 09/12/18 10:41 Dose: 25 mg Clopidogrel Bisulfate (Plavix) 75 mg PO DAILY [facility] Last Admin: 09/12/18 10:43 Dose: 75 mg [facility] Heparin Sodium (Porcine) () 2,500 units IV UD PRN PRN Reason: HEPARIN FLUSH Heparin Sodium (Porcine) (Heparin Na) 5,000 unit SC Q12 [facility] Last Admin: 09/12/18 10:42 Dose: 5,000 unit Hydralazine HCl (Apresoline) 25 mg PO BID [facility] Last Admin: 09/12/18 10:39 Dose: 25 mg Isosorbide Mononitrate (Imdur) 30 mg PO DAILY [facility] Last Admin: 09/12/18 10:43 Dose: 30 mg Lactulose (Chronulac, Cephulac) 10 gm PO DAILY PRN PRN Reason: Constipation Magnesium Hydroxide (Milk Of Magnesia) 30 ml PO DAILY PRN PRN Reason: Constipation Pramipexole Dihydrochloride (Mirapex) 0.5 mg PO QHS [facility] Last Admin: 09/11/18 22:36 Dose: 0.5 mg Prednisone () 10 mg PO DAILY@0800 [facility] Last Admin: 09/12/18 10:39 Dose: 10 mg Senna (Senokot) 1 tablet PO QHS PRN PRN Reason: Constipation Sodium Chloride () 10 ml IV UD PRN PRN Reason: Dialysis Catheter Flush Last Admin: 09/11/18 20:14 Dose: 10 ml Tamsulosin HCl (Flomax) 0.4 mg PO BID [facility] Last Admin: 09/12/18 10:42 Dose: 0.4 mg Medical Necessity - Tobacco Use Smoking Status: Light Smoker (<10/day) Assessment/Plan All Active Problems (Last Reviewed 08/17/18 @ 09:55 by Judith Powell) DAI (acute kidney injury) (Acute) Hypertensive emergency (Acute) S/P dialysis catheter insertion (Acute 05/22/18) History of thoracentesis (Acute 05/22/18) Acute renal failure superimposed on chronic kidney disease (Acute) Acute respiratory failure with hypoxia (Acute) Diastolic CHF (Acute) 1. Acute hypoxic respiratory failure 2/2 acute on chronic diastolic heart failure/HTN/HLD - Since he has been oliguric as an outpatient, may have to rely on dialysis only, not sure bumex or lasix will be helpful - PT/OT - C/w crestor - I&O and daily weights - Fluid restriction 1500 cc daily - c/w Norvasc, Coreg, hydralazine and imdur - He recently had a heart cath and echo since March which showed diastolic dysfunction with normal EF and moderate pulm HTN 2. ESRD with DAI - baseline Cr appears to be around 2-2.5 currently around 6 on admission - C/s to nephrology for dialysis tonight - removed 2.4 L, he usually has between 2.4 to 3.2 L removed on MWF - recent LUE fistula placed - Has a right IJ access 3. PAD - stable - c/w imdur, ASA and Plavix 4. COPD - Stable - probably complicating his SOB - c/w his home inhaler and prednisone 5. BPH - stable - On flomax - states he recently had a cystoscopy at [facility] which was normal as well as a normal PSA 6. Anemia of chronic disease - given iron sucrose today before dialysis - c/w home ferric citrate - H/H is at baseline around 10.7 7. RLS - stable - c/w requip DVT: SCD and Heparin Diet: Cardiac with a fluid restriction Code Visit Inpatient E&M: 09423 Subs Hosp L2
--- NOTE | 2018-09-12 12:15 | CASEMGMT ---
RN CM Face to Face with patient for initial transition planning/care coordination assessment. RN CM introduced self and role at [facility]. Patient sitting in chair, alert and oriented, family at bedside. Patient willing to participate in assessment and is able to answer all questions appropriately. Care providers, pharmacy, and demographics verified. Patient wishes to discharge home, denies need for home health at this time. Patient states he has no further needs or concerns at this time. CM to follow for discharge planning needs that may arise. PCP: Ab AYERS Specialists: Delmy, urologist; Ingrid, pie bakery laborer; Sascha, keyboarding clerk; Floyd, truck rental manager Preferred Pharmacy: [facility] Insurance: [employer] [place] Prescription Benefit: [employer] MCR Living Will/HPOA: None LNOK: Living Arrangements: Patient lives with in 1 story home with 2 steps and railing to enter home. Transportation: Self/ DME/HHC: Patient has cane, walker, oxygen, cpap, nebulizer. HD at [facility] MWF 1230 Disposition Plan: Patient to discharge home with family support and follow-up plans in place. Obdulia VALADEZ, RN, CM
[2018-09-12] MEDS: Calcium Acetate 667 MG Capsule 1334 MG PO ×2 (12:25→17:05)
--- NOTE | 2018-09-12 16:46 | PN.RENAL_ITS ---
Patient Problems: Active and Suspected Problems (Last Reviewed 08/17/18 @ 09:55 by Judith Powell) Hypertensive emergency (Acute) Subjective: Pt said his breathing is better. tolerated yesterday HD session with 2.4 L UF Barry nausea No vomiting. No CP - Physical Exam General: Alert, Oriented x3 HEENT: Atraumatic Oral: Moist Mucosa Neck: Supple, No JVD Lungs: Clear to auscultation, Normal air movement Cardiovascular: Regular rate, Regular Rhythm, Normal S1, Normal S2 Abdomen: Bowel Sounds Present, Soft, Non Tender Extremities: No clubbing, No cyanosis Musculoskeletal: No Tenderness to Palpation of Joints or Extremities, No Muscle Wasting Neurological: Cranial nerves II-XII grossly intact, Neuro grossly intact Psych/Mental Status: Normal Affect Vital Signs Temp Pulse Resp BP Pulse Ox 98.3 F 80 16 156/61 H 96 09/12/18 14:42 09/12/18 14:57 09/12/18 14:57 09/12/18 14:42 09/12/18 14:42 Oxygen Flow Rate (L/min) 2 Oxygen Delivery Method Nasal Cannula Weight: 82 kg Body Mass Index (BMI) 28.3 Finger Stick Blood Glucose 200 Intake and Output for Last 24 Hours 09/10/18 09/11/18 09/12/18 23:59 23:59 23:59 Intake Total 380.8 / 380.8 330 / 330 Output Total 2550 / 2550 100 / 100 Balance -2169.2 / -2169.2 230 / 230 Laboratory Tests Past 24 Hrs 09/12/18 09/12/18 06:20 06:20 WBC 11.5 H RBC 3.15 L Hgb 10.1 L Hct 32.1 L MCV 101.9 H MCH 32.1 H MCHC 31.5 L RDW 16.5 H RDW Differential 58.7 H Plt Count 205 MPV 10.6 Immature Gran % (Auto) 0.300 Neut % (Auto) 75.6 H Lymph % (Auto) 12.6 L [place] % (Auto) 10.7 H Eos % (Auto) 0.6 Baso % (Auto) 0.2 Absolute Neuts (auto) 8.7 H Absolute Lymphs (auto) 1.45 Total Counted Not Reportable Sodium 131 L Potassium 3.9 Chloride 94 L Carbon Dioxide 25.0 Anion Gap 12 BUN 59 H Creatinine 4.17 H Estim Creat Clear Calc 16.86 Est GFR (MDRD) Af Amer 19 L Est GFR (MDRD) Non-Af 15 L BUN/Creatinine Ratio 14.1 Glucose 91 Calcium 8.2 L Medical Necessity - Tobacco Use Smoking Status: Light Smoker (<10/day) Assessment/Plan All Active Problems (Last Reviewed 08/17/18 @ 09:55 by Judith Powell) DAI (acute kidney injury) (Acute) Hypertensive emergency (Acute) S/P dialysis catheter insertion (Acute 05/22/18) History of thoracentesis (Acute 05/22/18) Acute renal failure superimposed on chronic kidney disease (Acute) Acute respiratory failure with hypoxia (Acute) Diastolic CHF (Acute) 1- ESRD on MWF. Pt goes to [facility] HD center in [place] Last HD session 09/11 with 2.4 L UF HD access is right IJ TC UE AVF is still maturing No need of HD session today. Next session tomorrow 2- Anemia: Hgb >10. will continue to monitor for now 3- hypertensive emergency. BP is better. Off nitro drip Continue the same BP meds UF with HD as tolerated. Will aim for 3-4 L UF tomorrow 4- acute hypoxemic RF from pulmonary edema improved with HD and UF along with controlling BP Renal team will continue to follow MACIEL JACQUES
[2018-09-12] MEDS: Ferrous Sulfate 325 MG Tablet PO (17:04)
[2018-09-12] MEDS: Atorvastatin Calcium 80 MG Tablet PO (21:18)
[2018-09-12] MEDS: Pramipexole Di-HCl 0.5 MG Tablet PO (21:18)
[2018-09-13] VITALS (12 sets, daily range): BP systolic 156–161; BP diastolic 64–77; PULSE 68–88; RESP 17–20; TEMP 36.6–37.1; O2SAT 93–96
[2018-09-13] MEDS: Ipratropium/Albuterol Sulfate 3 ML AMPUL.NEB INHALATION ×4 (03:16→14:59)
[2018-09-13 06:24] LABS: Anion Gap 13 (5-15); BUN 81 mg/dL (7-18); BUN/Creat Ratio 15.5 RATIO (10-20); Calcium,Total 8.7 mg/dL (8.5-10.1); Chloride 93 mmol/L (98-107); Creatinine, Serum 5.21 mg/dL (0.70-1.30); EST Glomerular Filtration Rate 12 mL/min (>60); Est Glom Filt Rate - Afr Amer 14 mL/min (>60); Estimated Creatinine Clearance 13.49 ml/min; Glucose 96 mg/dL (74-106); Potassium 4.2 mmol/L (3.5-5.1); Sodium Level 131 mmol/L (136-145)
[2018-09-13 06:49] LABS: Magnesium 2.3 mg/dL (1.6-2.6)
[2018-09-13] MEDS: Acetaminophen 325 MG Tablet 650 MG PO (10:38)
--- NOTE | 2018-09-13 12:33 | DCINST_ITS ---
- Discharge Diagnoses Current Active Problems: Current Active and Chronic Problems (Last Reviewed 08/17/18 @ 09:55 by Judith Powell) ESRD (end stage renal disease) (Chronic) Hypertensive emergency (Acute) You will use the following diet at home:: Cardiac, Fluid restricted (specify 2000 mls, 1500 mls) - 1500 Your food should be the consistency of: Regular Your liquids should be the consistency of: Regular/Thin Discharge Activity: No Restrictions Call your doctor if you observe: Shortness of breath, Dizziness, Swelling in the ankles, Chest pain, Increased palpitations (irregular heartbeat) Allergies/Adverse Reactions: Allergies irbesartan [From Avapro] Allergy (Severe, Verified 09/11/18 10:41) Blisters zolpidem [From Ambien] Adverse Reaction (Severe, Verified 09/11/18 10:41) made me go crazy, memory loss Medications to take at Discharge Ropinirole HCl [Requip] 1 mg PO QHS 01/28/18 Rosuvastatin Calcium [Crestor] 40 mg PO QHS 01/28/18 Albuterol Aerosols [Ventolin Aerosols] 2.5 mg INHALATION Q4H PRN 05/10/18 Amlodipine [Norvasc] 10 mg PO DAILY 05/10/18 Lactulose 15 ml PO DAILY PRN 07/23/18 Alprazolam [Xanax] 0.5 mg PO TID PRN 08/25/18 Ferric Citrate [Auryxia] 210 mg PO BIDAC 08/25/18 Prednisone 10 mg PO DAILY 08/25/18 Aspirin E.C. [Ecotrin] 81 mg PO DAILY@0800 09/11/18 Carvedilol [Coreg (Beta Kadi)] 25 mg PO BID 09/11/18 Clopidogrel Bisulfate [Plavix] 75 mg PO DAILY 09/11/18 Ipratropium/Albuterol Sulfate [Duoneb] 3 ml INHALATION Q4H PRN 09/11/18 Isosorbide Mononitrate [Isosorbide Mononitrate ER] 30 mg PO DAILY 09/11/18 Sennosides [Senna Lax] 8.6 mg PO QHS PRN 09/11/18 Sucroferric Oxyhydroxide [Velphoro] 1,000 mg PO TID 09/11/18 Tamsulosin HCl [Flomax] 0.4 mg PO BID 09/11/18 hydrALAZINE [Apresoline] 25 mg PO BID 09/11/18 Primary Care Physician: Tania Berger NP-C [Primary Care Provider] - Please follow up with your Primary Care Physician in: in 3-5 days Test Results: Test results from this visit will be discussed in further detail at your follow- up appointment, if applicable. Please Follow Up With: Chepe Barrientos MD When: In 2-4 weeks
--- NOTE | 2018-09-13 12:35 | PCM.DC.SUM ---
Discharge Date and Diagnosis - Problem List Patient Problems: Active and Suspected Problems (Last Reviewed 08/17/18 @ 09:55 by Judith Powell) Hypertensive emergency (Acute) Date of Admission: 09/11/18 Date of Discharge: 09/13/18 - Primary Discharge Diagnosis Active and Suspected Problems (Last Reviewed 08/17/18 @ 09:55 by Judith Powell) Hypertensive emergency (Acute) - Secondary Discharge Diagnosis Chronic Problems (Last Reviewed 08/17/18 @ 09:55 by Judith Powell) Chronic renal failure, stage 5 (Chronic) ESRD (end stage renal disease) (Chronic) History of non-ST elevation myocardial infarction (NSTEMI) (Chronic 01/21/11) History of left heart catheterization (Chronic 01/21/11) 10/13/[address] Barrientos @ [facility]:Per Dr. Jiménez @ [facility]: CABG recommended History of right and left heart catheterization (Chronic 05/24/18) Patent NICHOLAS to LAD, SVG to 1st OM and SVG to RCA. Elevated right heart pressures, significant Diastolic dysfunction per cath done @ [facility], Dr. Barrientos Stented coronary artery (Chronic) 2003, JASON to circumflex ; 10/13/2009 tsfer from [facility] to [facility], total of 5 bare metal stents to RCA per Dr. Barrientos @ [facility]: 3.5 X 18 Customer Support Representative, followed distally by 3.0 X12 Customer Support Representative to distal RCA;3.5 X 15 Customer Support Representative, followed proximally by 4.0 X 18 Customer Support Representative to Mid RCA; 4.0 X 18 Customer Support Representative to Proximal RCA S/P CABG x 3 (Chronic 01/26/11) [facility] per Dr. Osito Hernandez: NICHOLAS to LAD, reverse SVG to OMbranch of CX, reverse SVG to PDA of RCA. PDA endarterectomy. Status post peripheral artery angioplasty with insertion of stent (Chronic ~2010) Right common iliac, [facility] Atherosclerotic heart disease of [place] coronary artery without angina pectoris (Chronic) 2003, JASON to circumflex ; 10/10/2009 tsfer from [facility] to [facility], total of 5 bare metal stents to RCA; CABG X 3 vessels @ [facility] 01/31/2011 (critical left main and restenosis of RCA stents) HLD (hyperlipidemia) (Chronic) HTN (hypertension) (Chronic) PAD (peripheral artery disease) (Chronic) COPD (chronic obstructive pulmonary disease) (Chronic) Tobacco dependence (Chronic) CKD (chronic kidney disease) (Chronic) Leukocytosis (Chronic) Anemia (Chronic) BPH (benign prostatic hyperplasia) (Chronic) Hospital Course and Treatment Imaging Results: CXR: IMPRESSION: Findings in keeping with the CHF. Consults: Nephrology Operations: None Procedures: None Summary of Care Provided: HPI: The patient is a 67 year old M with a PMH as below presents with a 1 day h/o SOB. It began this morning at 1 am and some what resolved when he got up and then he had it again at 6 am which is why he presented to the ER. He was unable to go to his dialysis session today. In the ED he was hypertensive to 171 systolic and was SOB. He presented on BiPAP from EMS. In the ER he was found to be hypoxic on the ABG with a PaO2 of 130 while on BiPAP. Pro-BNP was close to his baseline, but CXR did demonstrate vascular congestion and pleural effusions. He was started on a nitro gtt and nephrology was consulted for dialysis. He denies eating excessively at [facility] and he closely monitors his salt intake. On admission he was 189# and after dialysis he is 178#. Vital Signs - 24 hr Temp Pulse Resp BP Pulse Ox 09/13/18 11:01 74 18 09/13/18 08:48 97.8 F 71 18 160/77 H 95 09/13/18 07:19 72 09/13/18 06:50 71 20 H 95 09/13/18 03:16 68 19 H 09/13/18 03:00 70 09/13/18 02:45 98.8 F 72 18 161/64 H 96 09/13/18 02:08 73 09/12/18 23:53 65 24 H 09/12/18 23:00 73 09/12/18 21:16 66 153/63 H 09/12/18 20:46 99.0 F 66 20 H 153/63 H 97 09/12/18 19:59 69 18 09/12/18 19:00 72 09/12/18 15:28 77 09/12/18 14:57 80 16 09/12/18 14:42 98.3 F 75 18 156/61 H 96 General: Alert, Oriented x3, Cooperative, No apparent distress HEENT: Atraumatic, PERRLA, EOMI, Normocephalic Oral: Moist Mucosa Neck: Supple, No JVD, Negative Carotid Bruits Lungs: Normal air movement, Diminished, Rales, Wheezes Cardiovascular: Regular rate, Regular Rhythm, Normal S1, Normal S2, No murmurs Abdomen: Soft, Non Tender, Non-Distended, No Hepato-splenomegaly Extremities: Edema - trace pitting edema b/l LE Skin: No rashes, No breakdown Neurological: Neuro grossly intact, Sensory exam intact to light touch and pain Psych/Mental Status: Normal Affect, Appropriate Hospital Course: 1. Acute hypoxic respiratory failure 2/2 acute on chronic diastolic heart failure/HTN/HLD - He presented with the signs and symptoms of heart failure. He was initially started on a nitroglycerin gtt in the ER for preload reduction which was discontinued after his dialysis session. After his dialysis session he felt much better and was breathing easier. He was able kristi taken off of BiPAP and maintained on 2.5 L NC. He states that he has oxygen at home for night time use and he is usually at 2L NC. He was discharged after a full dialysis session. He was feeling better and felt that his legs looked much better today with not much swelling. He was maintained and will be discharged on a fluid restriction of 1500 cc daily and I will discontinue his bumex as he now appears to be oliguric and dialysis dependant. I will continue him on all of his home medications. He is to follow-up with cardiology in a month. A repeat echo was not performed since he had had a cardiac cath and an echo within the last 6 months with a normal EF and grade 2 diastolic dysfunction. 2. ESRD/Anemia of chronic disease - He was able to have 2 dialysis sessions during his admission which helped significantly. He was also given a dose of iron sucrose prior to his first dialysis session by nephrology. He will have another round of dialysis on Tuesday through his port, until his fistula in his LUE matures, 3. His other diagnoses were evaluated and his home medications were continued where appropriate Patient Problems: Active and Suspected Problems (Last Reviewed 08/17/18 @ 09:55 by Judith Powell) Hypertensive emergency (Acute) - Physical Exam Vital Signs Temp Pulse Resp BP Pulse Ox 97.8 F 74 18 160/77 H 95 09/13/18 08:48 09/13/18 11:01 09/13/18 11:01 09/13/18 08:48 09/13/18 08:48 Oxygen Flow Rate (L/min) 2 Oxygen Delivery Method Nasal Cannula Weight: 180 lb 12.465 oz Body Mass Index (BMI) 28.3 Finger Stick Blood Glucose 200 Intake and Output for Last 24 Hours 09/11/18 09/12/18 09/13/18 23:59 23:59 23:59 Intake Total 380.8 / 380.8 1195 / 1195 Output Total 2550 / 2550 200 / 200 200 / 200 Balance -2169.2 / -2169.2 995 / 995 -200 / -200 Laboratory Tests Past 24 Hrs 09/13/18 09/13/18 05:03 05:03 Sodium 131 L Potassium 4.2 Chloride 93 L Carbon Dioxide 25.0 Anion Gap 13 BUN 81 H Creatinine 5.21 H Estim Creat Clear Calc 13.49 Est GFR (MDRD) Af Amer 14 L Est GFR (MDRD) Non-Af 12 L BUN/Creatinine Ratio 15.5 Glucose 96 Calcium 8.7 Magnesium 2.3 Discharge Activity: No Restrictions Call your doctor if you observe: Shortness of breath, Dizziness, Swelling in the ankles, Chest pain, Increased palpitations (irregular heartbeat) Home Medications: Medications to take at Discharge Ropinirole HCl [Requip] 1 mg PO QHS 01/28/18 Rosuvastatin Calcium [Crestor] 40 mg PO QHS 01/28/18 Albuterol Aerosols [Ventolin Aerosols] 2.5 mg INHALATION Q4H PRN 05/10/18 Amlodipine [Norvasc] 10 mg PO DAILY 05/10/18 Lactulose 15 ml PO DAILY PRN 07/23/18 Alprazolam [Xanax] 0.5 mg PO TID PRN 08/25/18 Ferric Citrate [Auryxia] 210 mg PO BIDAC 08/25/18 Prednisone 10 mg PO DAILY 08/25/18 Aspirin E.C. [Ecotrin] 81 mg PO DAILY@0800 09/11/18 Carvedilol [Coreg (Beta Kadi)] 25 mg PO BID 09/11/18 Clopidogrel Bisulfate [Plavix] 75 mg PO DAILY 09/11/18 Ipratropium/Albuterol Sulfate [Duoneb] 3 ml INHALATION Q4H PRN 09/11/18 Isosorbide Mononitrate [Isosorbide Mononitrate ER] 30 mg PO DAILY 09/11/18 Sennosides [Senna Lax] 8.6 mg PO QHS PRN 09/11/18 Sucroferric Oxyhydroxide [Velphoro] 1,000 mg PO TID 09/11/18 Tamsulosin HCl [Flomax] 0.4 mg PO BID 09/11/18 hydrALAZINE [Apresoline] 25 mg PO BID 09/11/18 Primary Care Physician: Tania Berger NP-C [Primary Care Provider] - Please follow up with your Primary Care Physician in: in 3-5 days Please Follow Up With: Chepe Barrientos MD When: In 2-4 weeks Disposition: Home Minutes spent on discharge:: 35 Patient Condition:: Good Medical Necessity - Tobacco Use Smoking Status: Light Smoker (<10/day) Meaningful Use Info Meaningful Use Diagnoses (Choose all that apply): None applicable Code Visit Inpatient E&M: 42629 Disch Hosp
--- NOTE | 2018-09-13 12:47 | DS.PCM_ITS ---
Discharge Date and Diagnosis - Problem List Patient Problems: Active and Suspected Problems (Last Reviewed 08/17/18 @ 09:55 by Judith Powell) Hypertensive emergency (Acute) Date of Admission: 09/11/18 Date of Discharge: 09/13/18 - Primary Discharge Diagnosis Active and Suspected Problems (Last Reviewed 08/17/18 @ 09:55 by Judith Powell) Hypertensive emergency (Acute) - Secondary Discharge Diagnosis Chronic Problems (Last Reviewed 08/17/18 @ 09:55 by Judith Powell) Chronic renal failure, stage 5 (Chronic) ESRD (end stage renal disease) (Chronic) History of non-ST elevation myocardial infarction (NSTEMI) (Chronic 01/21/11) History of left heart catheterization (Chronic 01/21/11) 10/13/[address] Barrientos @ [facility]:Per Dr. Jiménez @ [facility]: CABG recommended History of right and left heart catheterization (Chronic 05/24/18) Patent NICHOLAS to LAD, SVG to 1st OM and SVG to RCA. Elevated right heart pressures, significant Diastolic dysfunction per cath done @ [facility], Dr. Barrientos Stented coronary artery (Chronic) 2003, JASON to circumflex ; 10/13/2009 tsfer from [facility] to [facility], total of 5 bare metal stents to RCA per Dr. Barrientos @ [facility]: 3.5 X 18 General Administrator, followed distally by 3.0 X12 General Administrator to distal RCA;3.5 X 15 General Administrator, followed proximally by 4.0 X 18 General Administrator to Mid RCA; 4.0 X 18 General Administrator to Proximal RCA S/P CABG x 3 (Chronic 01/26/11) [facility] per Dr. Osito Hernandez: NICHOLAS to LAD, reverse SVG to OMbranch of CX, reverse SVG to PDA of RCA. PDA endarterectomy. Status post peripheral artery angioplasty with insertion of stent (Chronic ~2010) Right common iliac, [facility] Atherosclerotic heart disease of [place] coronary artery without angina pectoris (Chronic) 2003, JASON to circumflex ; 10/10/2009 tsfer from [facility] to [facility], total of 5 bare metal stents to RCA; CABG X [address] [facility] 01/31/2011 (critical left main and restenosis of RCA stents) HLD (hyperlipidemia) (Chronic) HTN (hypertension) (Chronic) PAD (peripheral artery disease) (Chronic) COPD (chronic obstructive pulmonary disease) (Chronic) Tobacco dependence (Chronic) CKD (chronic kidney disease) (Chronic) Leukocytosis (Chronic) Anemia (Chronic) BPH (benign prostatic hyperplasia) (Chronic) Hospital Course and Treatment Imaging Results: CXR: IMPRESSION: Findings in keeping with the CHF. Consults: Nephrology Operations: None Procedures: None Summary of Care Provided: HPI: The patient is a 67 year old M with a PMH as below presents with a 1 day h/o SOB. It began this morning at 1 am and some what resolved when he got up and then he had it again at 6 am which is why he presented to the ER. He was unable to go to his dialysis session today. In the ED he was hypertensive to 171 systolic and was SOB. He presented on BiPAP from EMS. In the ER he was found to be hypoxic on the ABG with a PaO2 of 130 while on BiPAP. Pro-BNP was close to his baseline, but CXR did demonstrate vascular congestion and pleural effusions. He was started on a nitro gtt and nephrology was consulted for dialysis. He denies eating excessively at the [facility] and he closely monitors his salt intake. On admission he was 189# and after dialysis he is 178#. Vital Signs - 24 hr Temp Pulse Resp BP Pulse Ox 09/13/18 11:01 74 18 09/13/18 08:48 97.8 F 71 18 160/77 H 95 09/13/18 07:19 72 09/13/18 06:50 71 20 H 95 09/13/18 03:16 68 19 H 09/13/18 03:00 70 09/13/18 02:45 98.8 F 72 18 161/64 H 96 09/13/18 02:08 73 09/12/18 23:53 65 24 H 09/12/18 23:00 73 09/12/18 21:16 66 153/63 H 09/12/18 20:46 99.0 F 66 20 H 153/63 H 97 09/12/18 19:59 69 18 09/12/18 19:00 72 09/12/18 15:28 77 09/12/18 14:57 80 16 09/12/18 14:42 98.3 F 75 18 156/61 H 96 General: Alert, Oriented x3, Cooperative, No apparent distress HEENT: Atraumatic, PERRLA, EOMI, Normocephalic Oral: Moist Mucosa Neck: Supple, No JVD, Negative Carotid Bruits Lungs: Normal air movement, Diminished, Rales, Wheezes Cardiovascular: Regular rate, Regular Rhythm, Normal S1, Normal S2, No murmurs Abdomen: Soft, Non Tender, Non-Distended, No Hepato-splenomegaly Extremities: Edema - trace pitting edema b/l LE Skin: No rashes, No breakdown Neurological: Neuro grossly intact, Sensory exam intact to light touch and pain Psych/Mental Status: Normal Affect, Appropriate Hospital Course: 1. Acute hypoxic respiratory failure 2/2 acute on chronic diastolic heart failure/HTN/HLD - He presented with the signs and symptoms of heart failure. He was initially started on a nitroglycerin gtt in the ER for preload reduction which was discontinued after his dialysis session. After his dialysis session he felt much better and was breathing easier. He was able kristi taken off of BiPAP and maintained on 2.5 L NC. He states that he has oxygen at home for night time use and he is usually at 2L NC. He was discharged after a full dialysis session. He was feeling better and felt that his legs looked much better today with not much swelling. He was maintained and will be discharged on a fluid restriction of 1500 cc daily and I will discontinue his bumex as he now appears to be oliguric and dialysis dependant. I will continue him on all of his home medications. He is to follow-up with cardiology in a month. A repeat echo was not performed since he had had a cardiac cath and an echo within the last 6 months with a normal EF and grade 2 diastolic dysfunction. 2. ESRD/Anemia of chronic disease - He was able to have 2 dialysis sessions during his admission which helped significantly. He was also given a dose of iron sucrose prior to his first dialysis session by nephrology. He will have another round of dialysis on Tuesday through his port, until his fistula in his LUE matures, 3. His other diagnoses were evaluated and his home medications were continued where appropriate Patient Problems: Active and Suspected Problems (Last Reviewed 08/17/18 @ 09:55 by Judith Powell) Hypertensive emergency (Acute) - Physical Exam Vital Signs Temp Pulse Resp BP Pulse Ox 97.8 F 74 18 160/77 H 95 09/13/18 08:48 09/13/18 11:01 09/13/18 11:01 09/13/18 08:48 09/13/18 08:48 Oxygen Flow Rate (L/min) 2 Oxygen Delivery Method Nasal Cannula Weight: 180 lb 12.465 oz Body Mass Index (BMI) 28.3 Finger Stick Blood Glucose 200 Intake and Output for Last 24 Hours 09/11/18 09/12/18 09/13/18 23:59 23:59 23:59 Intake Total 380.8 / 380.8 1195 / 1195 Output Total 2550 / 2550 200 / 200 200 / 200 Balance -2169.2 / -2169.2 995 / 995 -200 / -200 Laboratory Tests Past 24 Hrs 09/13/18 09/13/18 05:03 05:03 Sodium 131 L Potassium 4.2 Chloride 93 L Carbon Dioxide 25.0 Anion Gap 13 BUN 81 H Creatinine 5.21 H Estim Creat Clear Calc 13.49 Est GFR (MDRD) Af Amer 14 L Est GFR (MDRD) Non-Af 12 L BUN/Creatinine Ratio 15.5 Glucose 96 Calcium 8.7 Magnesium 2.3 Discharge Activity: No Restrictions Call your doctor if you observe: Shortness of breath, Dizziness, Swelling in the ankles, Chest pain, Increased palpitations (irregular heartbeat) Home Medications: Medications to take at Discharge Ropinirole HCl [Requip] 1 mg PO QHS 01/28/18 Rosuvastatin Calcium [Crestor] 40 mg PO QHS 01/28/18 Albuterol Aerosols [Ventolin Aerosols] 2.5 mg INHALATION Q4H PRN 05/10/18 Amlodipine [Norvasc] 10 mg PO DAILY 05/10/18 Lactulose 15 ml PO DAILY PRN 07/23/18 Alprazolam [Xanax] 0.5 mg PO TID PRN 08/25/18 Ferric Citrate [Auryxia] 210 mg PO BIDAC 08/25/18 Prednisone 10 mg PO DAILY 08/25/18 Aspirin E.C. [Ecotrin] 81 mg PO DAILY@0800 09/11/18 Carvedilol [Coreg (Beta Kadi)] 25 mg PO BID 09/11/18 Clopidogrel Bisulfate [Plavix] 75 mg PO DAILY 09/11/18 Ipratropium/Albuterol Sulfate [Duoneb] 3 ml INHALATION Q4H PRN 09/11/18 Isosorbide Mononitrate [Isosorbide Mononitrate ER] 30 mg PO DAILY 09/11/18 Sennosides [Senna Lax] 8.6 mg PO QHS PRN 09/11/18 Sucroferric Oxyhydroxide [Velphoro] 1,000 mg PO TID 09/11/18 Tamsulosin HCl [Flomax] 0.4 mg PO BID 09/11/18 hydrALAZINE [Apresoline] 25 mg PO BID 09/11/18 Primary Care Physician: Tania Berger NP-C [Primary Care Provider] - Please follow up with your Primary Care Physician in: in 3-5 days Please Follow Up With: Chepe Barrientos MD When: In 2-4 weeks Disposition: Home Minutes spent on discharge:: 35 Patient Condition:: Good Medical Necessity - Tobacco Use Smoking Status: Light Smoker (<10/day) Meaningful Use Info Meaningful Use Diagnoses (Choose all that apply): None applicable Code Visit Inpatient E&M: 16690 Disch Hosp
--- NOTE | 2018-09-13 13:19 | CASEMGMT ---
RN JOHANNA NOTE: Discharge orders in. RN CM to room to talk with pt. Pt states he thinks [facility] is aware he is discharging today but asked if RN JOHANNA could place call to them to confirm. Call placed to [facility]. They were informed that pt is discharging today 09/13/18. Next chair time for dialysis is Tuesday09/15/18. Junior UMAÑAN RAYMOND CM
[2018-09-13] MEDS: Ferrous Sulfate 325 MG Tablet PO (13:52)
[2018-09-13] MEDS: Aspirin E.C. 81 MG Tablet PO (13:52)
[2018-09-13] MEDS: Tamsulosin HCl 0.4 MG Capsule PO (13:53)
[2018-09-13] MEDS: Calcium Acetate 667 MG Capsule 1334 MG PO (13:53)
[2018-09-13] MEDS: predniSONE 10 MG Tablet PO (13:54)
[2018-09-13] MEDS: hydrALAZINE 25 MG Tablet PO (13:54)
[2018-09-13] MEDS: Bumetanide 2 MG Tablet PO (13:54)
[2018-09-13] MEDS: Carvedilol 25 MG Tablet PO (13:55)
[2018-09-13] MEDS: Isosorbide Mononitrate 30 MG Tablet PO (13:56)
[2018-09-13] MEDS: amLODIPine 10 MG Tablet PO (13:56)
[2018-09-13] MEDS: Clopidogrel Bisulfate 75 MG Tablet PO (13:56)
[2018-09-13] MEDS: Heparin 10,000 UNITS/10 ML Vial IV (19:32)
--- NOTE | 2018-09-14 17:36 | CASEMGMT ---
RN CM Discharge Follow-up Phone Call: JACK: Darion Strata: 4 Call Date: 09/14/18 Discharge Date: 09/13/18 Time of Call: 1730 Duration: 0 ? Admitting Diagnosis: HTN emergency, ESRD This RN JOHANNA attempted to contact pt via telephone for discharge follow-up. Voicemail received and message left requesting a return call if pt had questions or concerns. Aj Hanson RN
== END 2018-09-13 16:05 | disposition home or self-care (01) | DRG 291 ==
LOC: ED 10:59 → PCU 13:14
PROVIDERS: Hospitalist; Admitting Provider Family Medicine; Emergency Provider Emergency Medicine; Family Provider Nurse Practitioner Family; PCP Nurse Practitioner Family; Visit Provider Family Medicine
DX: I13.2 Hypertensive heart and chronic kidney disease with heart failure and with stage 5 chronic kidney disease, or end stage renal disease (principal); I50.33 Acute on chronic diastolic (congestive) heart failure; N18.6 End stage renal disease; J96.01 Acute respiratory failure with hypoxia; N17.9 Acute kidney failure, unspecified; I16.1 Hypertensive emergency; I73.9 Peripheral vascular disease, unspecified; N40.0 Benign prostatic hyperplasia without lower urinary tract symptoms; D63.8 Anemia in other chronic diseases classified elsewhere; J44.9 Chronic obstructive pulmonary disease, unspecified; G25.81 Restless legs syndrome; Z99.2 Dependence on renal dialysis; E78.5 Hyperlipidemia, unspecified; I27.20 Pulmonary hypertension, unspecified; Z95.5 Presence of coronary angioplasty implant and graft; I25.10 Atherosclerotic heart disease of native coronary artery without angina pectoris; F17.210 Nicotine dependence, cigarettes, uncomplicated; I25.2 Old myocardial infarction; Z95.1 Presence of aortocoronary bypass graft
CPT/HCPCS: 36415; 36600; 71045; 80048; 82803; 83605; 83735; 83880; 84484; 85025; 90937; 93005; 94002; 94640; 97162; 97165; 97802; 99285; 99406; J1756; J7030; J7040; A4216; G0257

== ENCOUNTER → 2018-09-19 13:46 | Outpatient (CLI) | payer MEDICARE, SELFPAY ==
[2018-09-11 14:06] VITALS: BMI 28.3
[2018-09-19 14:07] LABS: Absolute Lymphocyte Count 1.21 X10^3/ul (0.83-4.51); Absolute Neutrophil Count 8.6 X10^3/uL (2.0-7.7); Basophil# 0.02 X10^3/uL; Basophil% 0.2 % (0-1); Eosinophil# 0.16 X10^3/uL; Eosinophils% 1.4 % (0-5); Hematocrit 33.5 % (40-54); Hemoglobin 10.4 g/dl (13.0-16.5); Lymphocyte # 1.21 X10^3/ul (4.0); Lymphocyte % 10.9 % (19-41); Mean Corpuscular Hgb 31.6 pg (27.0-32.0); Mean Corpuscular Volume 101.8 fL (80-94); Mean Platelet Vol. 9.5 fl (6.2-12.0); Monocyte# 1.06 X10^3/uL; Monocyte% 9.5 % (0-10); Neutrophil # 8.64 X10^3/uL (2.7-7.7); Neutrophil % 77.6 % (47-70); Platelet Count 210 K/mm3 (150-450); RBC Distribution Width CV 17.4 % (11.6-14.6); RBC Distribution Width SD 63.3 fl (35.1-43.9); Red Blood Count 3.29 M/mm3 (4.6-6.2); White Blood Count 11.1 K/mm3 (4.4-11.0)
[2018-09-19 14:08] LABS: POSITIVE COUNT NO; POSITIVE DIFFERENTIAL NO; POSITIVE MORPHOLOGY NO
[2018-09-19 14:24] LABS: Anion Gap 11 (5-15); BUN 42 mg/dL (7-18); Calcium,Total 8.3 mg/dL (8.5-10.1); Chloride 93 mmol/L (98-107); Creatinine, Serum 5.26 mg/dL (0.70-1.30); EST Glomerular Filtration Rate 12 mL/min (>60); Est Glom Filt Rate - Afr Amer 14 mL/min (>60); Glucose 102 mg/dL (74-106); Potassium 4.6 mmol/L (3.5-5.1); Sodium Level 131 mmol/L (136-145)
== END ==
PROVIDERS: Physician Assistant; Family Provider Nurse Practitioner Family; PCP Nurse Practitioner Family; Referring Provider Family Medicine; Visit Provider Surgery
DX: N18.9 Chronic kidney disease, unspecified (principal); N17.9 Acute kidney failure, unspecified
CPT/HCPCS: 36415; 80048; 85025

== ENCOUNTER 2018-09-28 09:15 | Day surgery (SDC) | payer MEDICARE, SELFPAY ==
[2018-09-11 14:06] VITALS: BMI 28.3
[2018-09-19 15:48] VITALS: BMI 28.3
[2018-09-27 10:21] VITALS: BMI 26.4
--- NOTE | 2018-09-28 11:27 | OP.PCM_ITS ---
Problem List (1) Problem with dialysis access Status: Acute Qualifiers: Encounter type: subsequent encounter Qualified Code(s): T82.898D - Other specified complication of vascular prosthetic devices, implants and grafts, subsequent encounter Report of Operation Date of Procedure: 09/28/18 Pre-Operative Diagnosis: Failure to mature left upper extremity transposed cephalic vein to brachial artery arteriovenous hemodialysis fistula with suspected proximal venous stenosis Post-Operative Diagnosis: Left subclavian vein the proximal venous stenosis Surgery/Procedure Performed:: Left upper extremity fistulogram with 12 x 4 [place] proximal subclavian angioplasty Description of Surgical Findings:: Timeout and informed consent was obtained. 67-year-old gent was taken to the special procedures lab placed on the table. He received 25 mcg of fentanyl as intravenous medication. The left extremity sterilely prepped draped. Ultras ound was used to identify the cephalic vein in the distal upper arm closer to the antecubital space. Under ultrasound guidance 2% lidocaine was instilled as a local anesthetic. A total of 1 cc was used. Micropuncture needle was inserted antegrade with flow. Micropuncture wire inserted. A 6 Prydeinig short sheath was inserted. Using Isovue contrast to fistulogram was taken of the left upper arm and chest area. This demonstrated a high-grade subclavian vein stenosis proximal adjacent to the entrance of the left internal jugular vein. There was venous backflow noted. An 035 angled Glidewire was advanced. The 6 Prydeinig sheath was exchanged out for a 7 Prydeinig sheath. A 12 x 4 [place] balloon was inserted. 2 different insufflations of the proximal left subclavian was performed. During that a retrograde injection of the more proximal portion of the fistula was performed demonstrating widely patent arterial anastomosis. At this completion of the angioplasty follow-up fistulogram was obtained now demonstrated significant improvement Sheath was removed U suture of 4-0 nylon was placed there was a pulse thrill and bruit within the fistula currently. Hemostasis was intact blood loss minimal no apparent complication hand was viable Fistulogram demonstrates a transposed left upper extremity cephalic vein to brachial artery AV fistula. The arterial anastomosis and proximal portion of the fistula widely patent. The main body of the fistula widely patent. 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 Subsequent to the 12 x 4 [place] angioplasty there is now improved antegrade flow. There appears to be residual 20-30% stenosis of the vein but markedly improved over preintervention Demian Lua M.D., F.A.C.S. Type of Anesthesia:: IV Sedation
--- OUTSIDE RECORDS SUMMARY | 2018-11-14 02:49 | XMS RPT_ITS ---
:1950 Author Organization [place] Support Name Relationship Address Phone R Unavailable Unavailable Unavailable WES GIMENEZ Unavailable [address] + [place] [address] YENNI GIMENEZ Unavailable [address] + [place] [address] R Unavailable Unavailable Unavailable WES GIMENEZ Unavailable [address] + [place] [address] YENNI GIMENEZ Unavailable [address] + [place] [address] R Unavailable Unavailable Unavailable WES GIMENEZ Unavailable [address] + [place] [address] YENNI GIMENEZ Unavailable [address] + [place] [address] R Unavailable Unavailable Unavailable WES GIMENEZ Unavailable [address] + [place] [address] YENNI GIMENEZ Unavailable [address] + [place] [address] R Unavailable Unavailable Unavailable WES GIMENEZ Unavailable [address] + [place] [address] YENNI GIMENEZ Unavailable [address] + [place] [address] R Unavailable Unavailable Unavailable WES GIMENEZ Unavailable [address] + [place] [address] YENNI GIMENEZ Unavailable [address] + [place] [address] R Unavailable Unavailable Unavailable WES GIMENEZ Unavailable [address] + [place] [address] YENNI GIMENEZ Unavailable [address] + [place] [address] R Unavailable Unavailable Unavailable WES GIMENEZ Unavailable [address] + [place] [address] YENNI GIMENEZ Unavailable [address] + [place] [address] R Unavailable Unavailable Unavailable WES GIMENEZ Unavailable [address] + [place] [address] YENNI GIMENEZ Unavailable [address] + [place] [address] R Unavailable Unavailable Unavailable WES GIMENEZ Unavailable [address] + [place] [address] YENNI GIMENEZ Unavailable [address] + [place] [address] R Unavailable Unavailable Unavailable WES GIMENEZ Unavailable [address] + [place] [address] YENNI GIMENEZ Unavailable [address] + [place] [address] R Unavailable Unavailable Unavailable WES GIMENEZ Unavailable [address] + [place] [address] YENNI GIMENEZ Unavailable [address] + [place] [address] R Unavailable Unavailable Unavailable WES GIMENEZ Unavailable [address] + [place] [address] YENNI GIMENEZ Unavailable [address] + [place] [address] R Unavailable Unavailable Unavailable WES GIMENEZ Unavailable [address] + [place] [address] YENNI GIMENEZ Unavailable [address] + [place] [address] R Unavailable Unavailable Unavailable WES GIMENEZ Unavailable [address] + [place] [address] YENNI GIMENEZ Unavailable [address] + [place] [address] R Unavailable Unavailable Unavailable WES GIMENEZ Unavailable [address] + [place] [address] VANDYNE, YENNI Unavailable [address] + [place] [address] WES GIMENEZ Unavailable Unavailable + R Unavailable Unavailable Unavailable WES GIMENEZ Unavailable [address] + [place] [address] YENNI GIMENEZ Unavailable [address] + [place] [address] R Unavailable Unavailable Unavailable WES GIMENEZ Unavailable [address] + [place] [address] YENNI GIMENEZ Unavailable [address] + [place] [address] R Unavailable Unavailable Unavailable WES GIMENEZ Unavailable [address] + [place] [address] YENNI GIMENEZ Unavailable [address] + [place] [address] R Unavailable Unavailable Unavailable WES GIMENEZ Unavailable [address] + [place] [address] YENNI GIMENEZ Unavailable [address] + [place] [address] R Unavailable Unavailable Unavailable WES GIMENEZ Unavailable [address] + [place] [address] YENNI GIMENEZ Unavailable [address] + [place] [address] R Unavailable Unavailable Unavailable WES GIMENEZ Unavailable [address] + [place] [address] YENNI GIMENEZ Unavailable [address] + [place] [address] R Unavailable Unavailable Unavailable WES GIMENEZ Unavailable [address] + [place] [address] YENNI GIMENEZ Unavailable [address] + [place] [address] R Unavailable Unavailable Unavailable WES GIMENEZ Unavailable [address] + [place] [address] YENNI GIMENEZ Unavailable [address] + [place] [address] R Unavailable Unavailable Unavailable WES GIMENEZ Unavailable [address] + [place] [address] YENNI GIMENEZ Unavailable [address] + [place] [address] R Unavailable Unavailable Unavailable WES GIMENEZ Unavailable [address] + [place] [address] YENNI IGMENEZ Unavailable [address] + [place] [address] R Unavailable Unavailable Unavailable WES GIMENEZ Unavailable [address] + [place] [address] YENNI GIMENEZ Unavailable [address] + [place] [address] R Unavailable Unavailable Unavailable WES GIMENEZ Unavailable [address] + [place] [address] YENNI GIMENEZ Unavailable [address] + [place] [address] R Unavailable Unavailable Unavailable WES GIMENEZ Unavailable [address] + [place] [address] YENNI GIMENEZ Unavailable [address] + [place] [address] R Unavailable Unavailable Unavailable WES GIMENEZ Unavailable [address] + [place] [address] YENNI GIMENEZ Unavailable [address] + [place] [address] R Unavailable Unavailable Unavailable WES GIMENEZ Unavailable [address] + [place] [address] YENNI GMIENEZ Unavailable [address] + [place] [address] R Unavailable Unavailable Unavailable WES GIMENEZ Unavailable [address] + [place] [address] YENNI GIMENEZ Unavailable [address] + [place] [address] R Unavailable Unavailable Unavailable WES GIMENEZ Unavailable [address] + [place] [address] YENNI GIMENEZ Unavailable [address] + [place] [address] R Unavailable Unavailable Unavailable WES GIMENEZ Unavailable [address] + [place] [address] YENNI GIMENEZ Unavailable [address] + [place] [address] R Unavailable Unavailable Unavailable WES GIMENEZ Unavailable [address] + [place] [address] YENNI GIMENEZ Unavailable [address] + [place] [address] R Unavailable Unavailable Unavailable WES GIMENEZ Unavailable [address] + [place] [address] YENNI GIMENEZ Unavailable [address] + [place] [address] R Unavailable Unavailable Unavailable WES GIMENEZ Unavailable [address] + [place] [address] YENNI GIMENEZ Unavailable [address] + [place] [address] R Unavailable Unavailable Unavailable WES GIMENEZ Unavailable [address] + [place] [address] YENNI GIMENEZ Unavailable [address] + [place] [address] R Unavailable Unavailable Unavailable WES GIMENEZ Unavailable [address] + [place] [address] YENNI GIMENEZ Unavailable [address] + [place] [address] R Unavailable Unavailable Unavailable WES GIMENEZ Unavailable [address] + [place] [address] YENNI GIMENEZ Unavailable [address] + [place] [address] R Unavailable Unavailable Unavailable WES GIMENEZ Unavailable [address] + [place] [address] YENNI GIMENEZ Unavailable [address] + [place] [address] R Unavailable Unavailable Unavailable WES GIMENEZ Unavailable [address] + [place] [address] YENNI GIMENEZ Unavailable [address] + [place] [address] R Unavailable Unavailable Unavailable WES GIMENEZ Unavailable [address] + [place] [address] YENNI GIMENEZ Unavailable [address] + [place] [address] R Unavailable Unavailable Unavailable WES GIMENEZ Unavailable [address] + [place] [address] YENNI GIMENEZ Unavailable [address] + [place] [address] R Unavailable Unavailable Unavailable WES GIMENEZ Unavailable [address] + [place] [address] YENNI GIMENEZ Unavailable [address] + [place] [address] R Unavailable Unavailable Unavailable WES GIMENEZ Unavailable [address] + [place] [address] YENNI GIMENEZ Unavailable [address] + [place] [address] R Unavailable Unavailable Unavailable WES GIMENEZ Unavailable [address] + [place] [address] YENNI GIMENEZ Unavailable [address] + [place] [address] R Unavailable Unavailable Unavailable WES GIMENEZ Unavailable [address] + [place] [address] YENNI GIMENEZ Unavailable [address] + [place] [address] R Unavailable Unavailable Unavailable WES GIMENEZ Unavailable [address] + [place] [address] YENNI GIMENEZ Unavailable [address] + [place] [address] R Unavailable Unavailable Unavailable WES GIMENEZ Unavailable [address] + [place] [address] YENNI GIMENEZ Unavailable [address] + [place] [address] R Unavailable Unavailable Unavailable WES GIMENEZ Unavailable [address] + [place] [address] YENNI GIMENEZ Unavailable [address] + [place] [address] R Unavailable Unavailable Unavailable WES GIMENEZ Unavailable [address] + [place] [address] YENNI GIMENEZ Unavailable [address] + [place] [address] R Unavailable Unavailable Unavailable WES GIMENEZ Unavailable [address] + [place] [address] YENNI GIMENEZ Unavailable [address] + [place] [address] R Unavailable Unavailable Unavailable WES GIMENEZ Unavailable [address] + [place] [address] YENNI GIMENEZ Unavailable [address] + [place] [address] R Unavailable Unavailable Unavailable WES GIMENEZ Unavailable [address] + [place] [address] YENNI GIMENEZ Unavailable [address] + [place] [address] R Unavailable Unavailable Unavailable WES GIMENEZ Unavailable [address] + [place] [address] YENNI GIMENEZ Unavailable [address] + [place] [address] R Unavailable Unavailable Unavailable WES GIMENEZ Unavailable [address] + [place] [address] YENNI GIMENEZ Unavailable [address] + [place] [address] R Unavailable Unavailable Unavailable WES GIMENEZ Unavailable [address] + [place] [address] YENNI GIMENEZ Unavailable [address] + [place] [address] R Unavailable Unavailable Unavailable WES GIMENEZ Unavailable [address] + [place] [address] YENNI GIMENEZ Unavailable [address] + [place] [address] R Unavailable Unavailable Unavailable WES GIMENEZ Unavailable [address] + [place] [address] YENNI GIMENEZ Unavailable [address] + [place] [address] R Unavailable Unavailable Unavailable WES GIMENEZ Unavailable [address] + [place] [address] YENNI GIMENEZ Unavailable [address] + [place] [address] R Unavailable Unavailable Unavailable WES GIMENEZ Unavailable [address] + [place] [address] YENNI GIMENEZ Unavailable [address] + [place] [address] R Unavailable Unavailable Unavailable WES GIMENEZ Unavailable [address] + [place] [address] YENNI GIMENEZ Unavailable [address] + [place] [address] R Unavailable Unavailable Unavailable WES GIMENEZ Unavailable [address] + [place] [address] YENNI GIMENEZ Unavailable [address] + [place] [address] R Unavailable Unavailable Unavailable WES GIMENEZ Unavailable [address] + [place] [address] YENNI GIMENEZ Unavailable [address] + [place] [address] R Unavailable Unavailable Unavailable WES GIMENEZ Unavailable [address] + [place] [address] YENNI GIMENEZ Unavailable [address] + [place] [address] R Unavailable Unavailable Unavailable WES GIMENEZ Unavailable [address] + [place] [address] YENNI GIMENEZ Unavailable [address] + [place] [address] R Unavailable Unavailable Unavailable VANDYNENAWAFEN Unavailable [address] + [place] [address] LON YENNI Unavailable [address] + [place] [address] R Unavailable Unavailable Unavailable VANDYNE WES Unavailable [address] + [place] [address] MASHAYNE, YENNI Unavailable Unavailable + R Unavailable Unavailable Unavailable VANDYNE WES Unavailable [address] + [place] [address] LON, YENNI Unavailable Unavailable + R Unavailable Unavailable Unavailable VANDYNE WES Unavailable [address] + [place] [address] LON, YENNI Unavailable Unavailable + R Unavailable Unavailable Unavailable VANDYNE, WES Unavailable [address] + [place] [address] MASHAYNE, YENNI Unavailable Unavailable + R Unavailable Unavailable Unavailable VANDYNE WES Unavailable [address] + [place] [address] MASHAAMY, YENNI Unavailable Unavailable + R Unavailable Unavailable Unavailable VANDYNE WES Unavailable [address] + [place] [address] MASHAAMY, YENNI Unavailable Unavailable + LON WES Unavailable [address] + [place] [address] VANDYNE WES Unavailable [address] + [place] [address] LON WES Unavailable [address] + [place] [address] R Unavailable Unavailable Unavailable VANDYNE, WES Unavailable [address] + [place] [address] MASHAAMY, YENNI Unavailable Unavailable + R Unavailable Unavailable Unavailable VANDYNE, WES Unavailable [address] + [place] [address] VANDYNE, YENNI Unavailable Unavailable + R Unavailable Unavailable Unavailable VANDAMY WES Unavailable [address] + [place] [address] VANDYNE, YENNI Unavailable Unavailable + R Unavailable Unavailable Unavailable VANDAMY, WES Unavailable [address] + [place] [address] VANDYNE, YENNI Unavailable Unavailable + R Unavailable Unavailable Unavailable VANDYNE, WES Unavailable [address] + [place] [address] VANDYNE, YENNI Unavailable Unavailable + R Unavailable Unavailable Unavailable VANDAMY, WES Unavailable [address] + [place] [address] VANDYNE, YENNI Unavailable [address] + [place] [address] R Unavailable Unavailable Unavailable VANDAMY WES Unavailable [address] + [place] [address] VANDYNE, YENNI Unavailable Unavailable + R Unavailable Unavailable Unavailable VANDAMY, WES Unavailable [address] + [place] [address] VANDYNE, YENNI Unavailable Unavailable + R Unavailable Unavailable Unavailable NAWAF GIMENEZEN Unavailable [address] + [place] [address] VANDYNE, YENNI Unavailable Unavailable + R Unavailable Unavailable Unavailable VANDAMY, WES Unavailable [address] + [place] [address] VANDAMY, YENNI Unavailable Unavailable + WES GIMENEZ Unavailable Unavailable + WES GIMENEZ Unavailable [address] + [place] [address] VANDAMY WES Unavailable [address] [facility] [address] + [place] [address] VANDAMY WES Unavailable [address] + [place] [address] NAWAF GIMENEZEN Unavailable [address] + [place] [address] LON WES Unavailable Unavailable + VANDNAWAF REYESEN Unavailable [address] + [place] [address] LON WES Unavailable [address] [facility] [address] + [place] [address] NOT GIVEN Unavailable Unavailable Unavailable NAWAF GIMENEZEN Unavailable [address] [facility] [address] + [place] [address] LON WES Unavailable [address] [facility] [address] + [place] [address] D Unavailable Unavailable Unavailable NAWAF GIMENEZEN Unavailable [address] + [place] [address] LON YENNI Unavailable Unavailable + D Unavailable Unavailable Unavailable LON WES Unavailable [address] + [place] [address] LON, YENNI Unavailable Unavailable + D Unavailable Unavailable Unavailable NAWAF GIMENEZEN Unavailable [address] + [place] [address] LON, YENNI Unavailable Unavailable + D Unavailable Unavailable Unavailable NAWAF GIMENEZEN Unavailable [address] + [place] [address] VANDAMY, YENNI Unavailable Unavailable + WES GIMENEZ Unavailable [address] + [place] [address] LON WES Unavailable [address] + [place] [address] LON WES Unavailable [address] + [place] [address] VANDAMY WES Unavailable [address] + [place] [address] VANDYNE, WES Unavailable [address] [facility] [address] + [place] [address] NAWAF GIMENEZEN Unavailable [address] [facility] [address] + [place] [address] NAWAF GIMENEZEN Unavailable [address] [facility] [address] + [place] [address] NAWAF GIMENEZEN Unavailable [address] [facility] [address] + [place] [address] NAWAF GIMENEZEN Unavailable [address] [place] [address] [address] + [place] [address] NAWAF GIMENEZEN Unavailable [address] [facility] [address] + [place] [address] Care Team Providers Name Role Phone Katherine Lua Attending Unavailable Katherine Lua Referring Unavailable Ab, Wong BARREL LATHE OPERATOR INSIDE-C Primary Care Unavailable Chepe Barrientos Attending Unavailable Ab, Wong BARREL LATHE OPERATOR INSIDE-C Referring Unavailable Katherine Lua Attending Unavailable Katherine Lua Referring Unavailable Ab, Wong BARREL LATHE OPERATOR INSIDE-C Primary Care Unavailable Katherine Lua Consulting Unavailable Ab, Wong BARREL LATHE OPERATOR INSIDE-C Primary Care Unavailable Robyn Workman Admitting Unavailable Chris Stark Attending Unavailable Teresa, Robyn Admitting Unavailable Robyn Workman Attending Unavailable Ab, Wong BARREL LATHE OPERATOR INSIDE-C Primary Care Unavailable Robyn Workman Consulting Unavailable Teresa, Robyn Admitting Unavailable Robyn Workman Attending Unavailable Ba, Wong BARREL LATHE OPERATOR INSIDE-C Primary Care Unavailable Robyn Workman Consulting Unavailable Tiara Perales PA-C Attending Unavailable Ab, Wong BARREL LATHE OPERATOR INSIDE-C Referring Unavailable Ab, Wong BARREL LATHE OPERATOR INSIDE-C Attending Unavailable Ab, Wong BARREL LATHE OPERATOR INSIDE-C Referring Unavailable Ab, Wong BARREL LATHE OPERATOR INSIDE-C Primary Care Unavailable Katherine Lua Attending Unavailable Corbin, Augusto Attending Unavailable Corbin, Jayaprakash Referring Unavailable Ab, Wong BARREL LATHE OPERATOR INSIDE-C Primary Care Unavailable Ab, Wong BARREL LATHE OPERATOR INSIDE-C Primary Care Unavailable Corbin, Jayaprakash Consulting Unavailable Corbin, Jayaprakash Attending Unavailable Corbin, Jayaprakash Referring Unavailable Tereletsky, Robyn Admitting Unavailable Ab, Wong BARREL LATHE OPERATOR INSIDE-C Primary Care Unavailable Chris Stark Consulting Unavailable Chris Stark Attending Unavailable Ab, Wong BARREL LATHE OPERATOR INSIDE-C Primary Care Unavailable Andreia Jeffery Attending Unavailable Ab, Wong BARREL LATHE OPERATOR INSIDE-C Primary Care Unavailable Edith, Shay Admitting Unavailable Corbin, Jayaprakash Consulting Unavailable Paintsil, [place] Attending Unavailable Daisy, Fareed Consulting Unavailable Sascha, Elie Consulting Unavailable Edith, Shay Admitting Unavailable Ab, Wong BARREL LATHE OPERATOR INSIDE-C Primary Care Unavailable Edith, Shay Consulting Unavailable Victor M Boyd Attending Unavailable Edith, Shay Admitting Unavailable Kiana Armijo Attending Unavailable Ab, Wong BARREL LATHE OPERATOR INSIDE-C Primary Care Unavailable Daisy, Fareed Consulting Unavailable Sementi, Kiana Consulting Unavailable Edith, Shay Admitting Unavailable SemenKiana brothers Attending Unavailable Ab, Wong BARREL LATHE OPERATOR INSIDE-C Primary Care Unavailable Daisy, Fareed Consulting Unavailable Sementi, Kiana Consulting Unavailable Edith, Shay Admitting Unavailable Yomaira Cook BARREL LATHE OPERATOR INSIDE-C Attending Unavailable Ab, Wong BARREL LATHE OPERATOR INSIDE-C Primary Care Unavailable Corbin, Jayaprakash Consulting Unavailable Daisy, Fareed Consulting Unavailable Sascha, Elie Consulting Unavailable Paintsil, [place] Consulting Unavailable Edith, Shay Admitting Unavailable Paintsil, [place] Attending Unavailable Ab, Wong BARREL LATHE OPERATOR INSIDE-C Primary Care Unavailable Corbin, Jayaprakash Consulting Unavailable Daisy, Fareed Consulting Unavailable Sascha, Elie Consulting Unavailable Paintsil, [place] Consulting Unavailable Edith, Shay Admitting Unavailable Elie Caicedo Attending Unavailable Ab, Wong BARREL LATHE OPERATOR INSIDE-C Primary Care Unavailable Corbin, Jayaprakash Consulting Unavailable Daisy, Fareed Consulting Unavailable Sascha, Elie Consulting Unavailable Paintsil, [place] Consulting Unavailable Amanda Livingston Attending Unavailable Ab, Wong BARREL LATHE OPERATOR INSIDE-C Primary Care Unavailable Ab, Wong BARREL LATHE OPERATOR INSIDE-C Attending Unavailable Ab, Wong BARREL LATHE OPERATOR INSIDE-C Primary Care Unavailable Ab, Wong BARREL LATHE OPERATOR INSIDE-C Primary Care Unavailable Arnaldo Jennings Admitting Unavailable Manoj Christensen Attending Unavailable Arnaldo Jennings Attending Unavailable Ab, Wong BARREL LATHE OPERATOR INSIDE-C Primary Care Unavailable Arnaldo Jennings Admitting Unavailable Manoj Christensen Attending Unavailable Ab, Wong BARREL LATHE OPERATOR INSIDE-C Primary Care Unavailable Manoj Christensen Consulting Unavailable Arnaldo Jennings Admitting Unavailable Manoj Christensen Attending Unavailable Ab, Wong BARREL LATHE OPERATOR INSIDE-C Primary Care Unavailable Manoj Christensen Consulting Unavailable Arnaldo Jennings Admitting Unavailable Manoj Christensen Attending Unavailable Ab, Wong BARREL LATHE OPERATOR INSIDE-C Primary Care Unavailable Manoj Christensen Consulting Unavailable Ab, Wong BARREL LATHE OPERATOR INSIDE-C Primary Care Unavailable Mccollum, Nickolas Referring Unavailable Paintsil, [place] Admitting Unavailable Paintsil, [place] Attending Unavailable Elie Caicedo Consulting Unavailable Tanphaichitr, Natthavat Consulting Unavailable Chepe Barrientos Consulting Unavailable Daisy, Fareed Consulting Unavailable Paintsil, [place] Admitting Unavailable Paintsil, [place] Attending Unavailable Mccollum, Nickolas Referring Unavailable Ab, Wong BARREL LATHE OPERATOR INSIDE-C Primary Care Unavailable Paintsil, [place] Consulting Unavailable Paintsil, [place] Admitting Unavailable Chepe Barrientos Attending Unavailable Mccollum, Nickolas Referring Unavailable Ab, Wong BARREL LATHE OPERATOR INSIDE-C Primary Care Unavailable Elie Caicedo Consulting Unavailable Tanphaichitr, Natthavat Consulting Unavailable Chepe Barrientos Consulting Unavailable Daisy, Alvaro Wadsworth Consulting Unavailable Paintsil, [place] Consulting Unavailable Paintsil, [place] Admitting Unavailable Chepe Barrientos Attending Unavailable Mccollum, Nickolas Referring Unavailable Ab, Wong BARREL LATHE OPERATOR INSIDE-C Primary Care Unavailable Elie Caicedo Consulting Unavailable Tanphaichitr, Natthavat Consulting Unavailable Chepe Barrientos Consulting Unavailable Daisy, Alvaro Wadsworth Consulting Unavailable Paintsil, [place] Consulting Unavailable Paintsil, [place] Admitting Unavailable Paintsil, [place] Attending Unavailable Mccollum, Nickolas Referring Unavailable Ab, Wong BARREL LATHE OPERATOR INSIDE-C Primary Care Unavailable Elie Caicedo Consulting Unavailable Tanphaichitr, Natthavat Consulting Unavailable Chepe Barrientos Consulting Unavailable DaisyAlvaro Consulting Unavailable Paintsil, [place] Consulting Unavailable Paintsil, [place] Admitting Unavailable Paintsil, [place] Attending Unavailable Mccollum, Nickolas Referring Unavailable Ab, Wong BARREL LATHE OPERATOR INSIDE-C Primary Care Unavailable Elie Caicedo Consulting Unavailable Tanphaichitr, Natthavat Consulting Unavailable Chepe Barrientos Consulting Unavailable Daisy, Alvaro [place]adsworth Consulting Unavailable Paintsil, [place] Consulting Unavailable Evelyn Thurman Attending Unavailable Ab, Wong BARREL LATHE OPERATOR INSIDE-C Referring Unavailable Paintsil, [place] Admitting Unavailable Chepe Barrientos Attending Unavailable Mccollum, Nickolas Referring Unavailable Ab, Wong BARREL LATHE OPERATOR INSIDE-C Primary Care Unavailable Elie Caicedo Consulting Unavailable Tanphaichitr, Natthavat Consulting Unavailable Chepe Barrientos Consulting Unavailable Daisy, Fareed Consulting Unavailable Paintsil, [place] Consulting Unavailable Paintsil, [place] Admitting Unavailable Itz Bennett Attending Unavailable Nickolas Mccollum Referring Unavailable Ab, Wong BARREL LATHE OPERATOR INSIDE-C Primary Care Unavailable Elie Caicedo Consulting Unavailable Tanphaichitr, Natthavat Consulting Unavailable Chepe Barrientos Consulting Unavailable DaisyAlvaro Consulting Unavailable Paintsil, [place] Consulting Unavailable Ab, Wong BARREL LATHE OPERATOR INSIDE-C Primary Care Unavailable Arnaldo Jennings Admitting Unavailable Linda, Arnaldo Consulting Unavailable Robyn Workman Attending Unavailable Amanda Livingston Consulting Unavailable Sergey Salazar D.O. Consulting Unavailable Augusto Alaniz Consulting Unavailable Arnaldo Jennings Attending Unavailable Ab, Wong BARREL LATHE OPERATOR INSIDE-C Primary Care Unavailable Dick, Arnaldo Admitting Unavailable Amadou Shane Attending Unavailable Ab, Wong BARREL LATHE OPERATOR INSIDE-C Primary Care Unavailable Arnaldo Mckeon Consulting Unavailable Mauricioelfah, Ghasem Consulting Unavailable Dick, Arnaldo Admitting Unavailable Arnaldo Mckeon Attending Unavailable Ab, Wong BARREL LATHE OPERATOR INSIDE-C Primary Care Unavailable Arnaldo Mckeon Consulting Unavailable Ashelfah, Ghasem Consulting Unavailable Dick, Arnaldo Admitting Unavailable Svitlana, Amadou Attending Unavailable Ab, Owng BARREL LATHE OPERATOR INSIDE-C Primary Care Unavailable Arnaldo Mckeon Consulting Unavailable Ashelfah, Ghasem Consulting Unavailable Dick, Arnaldo Admitting Unavailable Chepe Barrientos Attending Unavailable Ab, Wong BARREL LATHE OPERATOR INSIDE-C Primary Care Unavailable Linda, Arnaldo Consulting Unavailable Mauricioelfah, Ghasem Consulting Unavailable Chepe Barrientos Attending Unavailable Arnaldo Jennings Admitting Unavailable Manoj Christensen Attending Unavailable Ab, Wong BARREL LATHE OPERATOR INSIDE-C Primary Care Unavailable Arnaldo Mckeon Consulting Unavailable Manoj Christensen Consulting Unavailable Arnaldo Jennings Admitting Unavailable Manoj Christensen Attending Unavailable Ab, Wong BARREL LATHE OPERATOR INSIDE-C Primary Care Unavailable Arnaldo Mckeon Consulting Unavailable Manoj Christensen Consulting Unavailable Arnaldo Jennings Admitting Unavailable Ab, Wnog BARREL LATHE OPERATOR INSIDE-C Primary Care Unavailable Linda, Arnaldo Consulting Unavailable Kiana Armijo Attending Unavailable [place] Addison Consulting Unavailable Arnaldo Jennings Admitting Unavailable Arnaldo Mckeon Attending Unavailable Ab, Wong BARREL LATHE OPERATOR INSIDE-C Primary Care Unavailable Arnaldo Mckeon Consulting Unavailable [place] Addison Consulting Unavailable Jennings, Arnaldo Admitting Unavailable Ab, Wong BARREL LATHE OPERATOR INSIDE-C Primary Care Unavailable Moodispaw, Arnaldo Consulting Unavailable Kiana Armijo Attending Unavailable Miki, Amanda Consulting Unavailable Sergey Salazar, Alvaro.O. Consulting Unavailable Azael, [place] Consulting Unavailable Jennings, Arnaldo Admitting Unavailable Alvaro Terrazas.Asa. Attending Unavailable Floridalma Bergera BARREL LATHE OPERATOR INSIDE-C Primary Care Unavailable Moodispaw, Arnaldo Consulting Unavailable Jennings, Arnaldo Referring Unavailable Bakmicheals, Aziz Consulting Unavailable Sergey Salazar, Alvaro.O. Consulting Unavailable Azael, [place] Consulting Unavailable Jennings, Arnaldo Admitting Unavailable Moodispaw, Arnaldo Attending Unavailable Ab, Wong BARREL LATHE OPERATOR INSIDE-C Primary Care Unavailable Moodispaw, Arnaldo Consulting Unavailable Bakmicheals, Aziz Consulting Unavailable Sergey Salazar, Alvaro.O. Consulting Unavailable Azael, [place] Consulting Unavailable Dick, Arnaldo Admitting Unavailable Diaz FELIPE-C, Tiara Attending Unavailable Ab, Wong BARREL LATHE OPERATOR INSIDE-C Primary Care Unavailable Moodispaleigh ann, Arnaldo Consulting Unavailable Jasiels, Aziz Consulting Unavailable Sergey Salazar, Alvaro.O. Consulting Unavailable Corbin, Jayaprakash Consulting Unavailable Teresa, Robyn Consulting Unavailable Jennings, Arnaldo Admitting Unavailable Itz Bennett Attending Unavailable Ab, Wong BARREL LATHE OPERATOR INSIDE-C Primary Care Unavailable Moodispaw, Arnaldo Consulting Unavailable Bakmicheals, Aziz Consulting Unavailable Sergey Salazar, Alvaro.O. Consulting Unavailable Corbin, Jayaprakash Consulting Unavailable Teresa, Robyn Consulting Unavailable Dick, Arnaldo Admitting Unavailable Diaz FELIPE-C, Tiara Attending Unavailable Ab, Wong BARREL LATHE OPERATOR INSIDE-C Primary Care Unavailable Moodispaw, Arnaldo Consulting Unavailable Bakmicheals, Aziz Consulting Unavailable Sergey Salazar, Alvaro.O. Consulting Unavailable Corbin, Jayaprakash Consulting Unavailable Tereletsky, Robyn Consulting Unavailable Jennings, Arnaldo Admitting Unavailable Chepe Barrientos Attending Unavailable Ab, Wong BARREL LATHE OPERATOR INSIDE-C Primary Care Unavailable Moodispaw, Arnaldo Consulting Unavailable Bakmicheals, Aziz Consulting Unavailable Sergey Salazar, Alvaro.O. Consulting Unavailable Corbin, Jayaprakash Consulting Unavailable Tereletsky, Robyn Consulting Unavailable Jennings, Arnaldo Admitting Unavailable Robyn Workman Attending Unavailable Ab, Wong BARREL LATHE OPERATOR INSIDE-C Primary Care Unavailable Moodispaw, Arnaldo Consulting Unavailable Bakmicheals, Aziz Consulting Unavailable Sergey Salazar, D.O. Consulting Unavailable Corbin, Jayaprakash Consulting Unavailable Terdarwinky, Robyn Consulting Unavailable Arnaldo Jennings Admitting Unavailable Tiara Perales PA-C Attending Unavailable Ab, Wong BARREL LATHE OPERATOR INSIDE-C Primary Care Unavailable Moodispaw, Arnaldo Consulting Unavailable Bakhous, Aziz Consulting Unavailable Alvaro Terraazs.Asa. Consulting Unavailable Corbin, Jayaprakash Consulting Unavailable Woodrowky, Robyn Consulting Unavailable Arnaldo Jennings Admitting Unavailable Robyn Workman Attending Unavailable Ab, Wong BARREL LATHE OPERATOR INSIDE-C Primary Care Unavailable Moodispaw, Arnaldo Consulting Unavailable Bakhous, Aziz Consulting Unavailable Sergey Salazar, Alvaro.O. Consulting Unavailable Corbin, Jayaprakash Consulting Unavailable Terdarwinky, Robyn Consulting Unavailable Dick, Arnaldo Admitting Unavailable Chepe Barrientos Attending Unavailable Ab, Wong BARREL LATHE OPERATOR INSIDE-C Primary Care Unavailable Moodispaw, Arnaldo Consulting Unavailable Bakhous, Aziz Consulting Unavailable Sergey Salazar, Alvaro.O. Consulting Unavailable Corbin, Jayaprakash Consulting Unavailable Woodrowky, Robyn Consulting Unavailable Arnaldo Jennings Admitting Unavailable Robyn Workman Attending Unavailable Ab, Wong BARREL LATHE OPERATOR INSIDE-C Primary Care Unavailable Moodispaw, Arnaldo Consulting Unavailable Bakhous, Aziz Consulting Unavailable Alvaro Terrazas.O. Consulting Unavailable Corbin, Jayaprakash Consulting Unavailable Woodrowky, Robyn Consulting Unavailable Arnaldo Jennings Admitting Unavailable Robyn Workman Attending Unavailable Ab, Wong BARREL LATHE OPERATOR INSIDE-C Primary Care Unavailable Moodispaw, Arnaldo Consulting Unavailable Bakhous, Aziz Consulting Unavailable Alvaro Terrazas.O. Consulting Unavailable Corbin, Jayaprakash Consulting Unavailable Teresa, Robyn Consulting Unavailable Elie Caicedo Attending Unavailable Paintsil, [place] Referring Unavailable Elie Caicedo Attending Unavailable Teresa, Robyn Referring Unavailable Chepe Barrientos Attending Unavailable Katherine Lua Attending Unavailable Corbin, Jayaprakash Attending Unavailable Corbin, Jayaprakash Referring Unavailable Ab, Wong BARREL LATHE OPERATOR INSIDE-C Primary Care Unavailable Mick Rm Attending Unavailable Chepe Barrientos Attending Unavailable Ab, Wong BARREL LATHE OPERATOR INSIDE-C Referring Unavailable Ab, Wong BARREL LATHE OPERATOR INSIDE-C Primary Care Unavailable Arnaldo Mckeon Attending Unavailable Amadou Shane Referring Unavailable Ab, Wong BARREL LATHE OPERATOR INSIDE-C Primary Care Unavailable Soniya Evangelista Attending Unavailable Chepe Barrientos Attending Unavailable Chepe Barrientos Referring Unavailable Ab, Wong BARREL LATHE OPERATOR INSIDE-C Primary Care Unavailable Katherine Lua Attending Unavailable Chepe Barrientos Referring Unavailable Ab, Wong BARREL LATHE OPERATOR INSIDE-C Primary Care Unavailable Chepe Barrientos Consulting Unavailable Ab, Wong BARREL LATHE OPERATOR INSIDE-C Primary Care Unavailable Chepe Barrientos Referring Unavailable Joisabel, Chris Admitting Unavailable Melvi, Caleb Consulting Unavailable Manoj Christensen Attending Unavailable Jimboeri, Chris Admitting Unavailable Chepe Barrientos Referring Unavailable Ab, Wong BARREL LATHE OPERATOR INSIDE-C Primary Care Unavailable Melvi, Caleb Consulting Unavailable JimboeriVipinic Attending Unavailable Jimboeri, Chris Consulting Unavailable Jimboeri, Chris Admitting Unavailable Chepe Barrientos Attending Unavailable Chepe Barrientos Referring Unavailable Ab, Wong BARREL LATHE OPERATOR INSIDE-C Primary Care Unavailable Melvi, Caleb Consulting Unavailable Manoj Christensen Consulting Unavailable Lincoln, Chris Admitting Unavailable Chepe Barrientos Referring Unavailable Ab, Wong BARREL LATHE OPERATOR INSIDE-C Primary Care Unavailable Melvi, Caleb Consulting Unavailable Manoj Christensen Attending Unavailable Manoj Christensen Consulting Unavailable Katherine Lua Attending Unavailable Ab, Wong BARREL LATHE OPERATOR INSIDE-C Referring Unavailable Joppleonardo, Chris Admitting Unavailable Chepe Barrientos Referring Unavailable Ab, Wong BARREL LATHE OPERATOR INSIDE-C Primary Care Unavailable Melvi, Caleb Consulting Unavailable Manoj Christensen Attending Unavailable Manoj Christensen Consulting Unavailable Katherine Lua Attending Unavailable Stoney Katherine Referring Unavailable Ab, Wong BARREL LATHE OPERATOR INSIDE-C Primary Care Unavailable Katherine Lua Attending Unavailable Stoney Katherine Referring Unavailable Ab, Wong BARREL LATHE OPERATOR INSIDE-C Primary Care Unavailable Katherine Lua Consulting Unavailable Katherine Lua Attending Unavailable Ab, Wong BARREL LATHE OPERATOR INSIDE-C Referring Unavailable Katherine Lua Attending Unavailable Cebul, Katherine Referring Unavailable Ab, Wong BARREL LATHE OPERATOR INSIDE-C Primary Care Unavailable Ab, Wong BARREL LATHE OPERATOR INSIDE-C Primary Care Unavailable Kai Mulligan Admitting Unavailable Kai Mulligan Attending Unavailable Amanda Livingston Consulting Unavailable Kai Mulligan Admitting Unavailable Kai Mulligan Attending Unavailable Ab, Wong BARREL LATHE OPERATOR INSIDE-C Primary Care Unavailable Amanda Livingston Consulting Unavailable Kai Mulligan Consulting Unavailable Kai Mulligan Admitting Unavailable Kai Mulligan Attending Unavailable Ab, Wong BARREL LATHE OPERATOR INSIDE-C Primary Care Unavailable Bakhous, Aziz Consulting Unavailable Kai Mulligan F Consulting Unavailable Kai Mulligan F Admitting Unavailable Kai Mulligan Attending Unavailable Ab, Wong BARREL LATHE OPERATOR INSIDE-C Primary Care Unavailable Bakhous, Aziz Consulting Unavailable Kylee Mulligans F Consulting Unavailable Tiara Perales PA-C Attending Unavailable Ab, Wong BARREL LATHE OPERATOR INSIDE-C Referring Unavailable Katherine Lua Attending Unavailable Nigel Lua III Referring Unavailable Ab, Wong BARREL LATHE OPERATOR INSIDE-C Primary Care Unavailable Katherine Lua Attending Unavailable Christopher Quesada Attending Unavailable Ab, Wong K Primary Care Unavailable Kai Ramirez Admitting Unavailable Kai Ramirez Attending Unavailable Ab, Wong K Primary Care Unavailable Ab, Wong K Primary Care Unavailable Iftikhar Bertin Bin Admitting Unavailable Iftikhar Bertin Bin Attending Unavailable Ab, Wong K Admitting Unavailable Ab, Wong K Attending Unavailable Ab, Wong K Primary Care Unavailable REAM BARREL LATHE OPERATOR INSIDE, HORACIO L Admitting Unavailable REAM BARREL LATHE OPERATOR INSIDE HORACIO L Attending Unavailable Ab, Wong K Primary Care Unavailable BlasFlorin W Attending Unavailable Ab, Wong K Primary Care Unavailable BlasFlorin W Admitting Unavailable BlasFlorin Attending Unavailable Ab, Wong K Primary Care Unavailable Blas Florin W Admitting Unavailable BlasFlorin W Attending Unavailable Ab, Wong K Primary Care Unavailable BlasFlorin W Attending Unavailable Ab, Wong K Primary Care Unavailable SHAN MCMANUS Attending Unavailable AB, WONG WILLIAM Primary Care Unavailable KAI RAMIREZ Attending Unavailable AB, WONG WILLIAM Primary Care Unavailable KATHERINE MILLIGAN Attending Unavailable AB, WONG WILLIAM Referring Unavailable AB, WONG WILLIAM Primary Care Unavailable KAI RAMIREZ Attending Unavailable AB, WONG WILLIAM Primary Care Unavailable KAI RAMIREZ Attending Unavailable AB, WONG WILLIAM Primary Care Unavailable OFELIA JEAN Attending Unavailable AB, WONG WILLIAM Primary Care Unavailable SALVATORE BONILLA Attending Unavailable AB, WONG WILLIAM Primary Care Unavailable OFELIA JEAN Attending Unavailable AB, WONG WILLIAM Primary Care Unavailable KAI RAMIREZ Attending Unavailable AB, WONG WILLIAM Primary Care Unavailable KAI RAMIREZ Attending Unavailable AB, WONG WILLIAM Primary Care Unavailable KAI RAMIREZ Attending Unavailable AB, WONG WILLIAM Primary Care Unavailable ELIE CRESPO Attending Unavailable AB, WONG WILLIAM Primary Care Unavailable MIRANDAOFELIA Eubanks Attending Unavailable AB, WONG WILLIAM Primary Care Unavailable INDU JIMÉNEZ Attending Unavailable AB, WONG WILLIAM Primary Care Unavailable JUAN CASAS Attending Unavailable AB, WONG WILLIAM Primary Care Unavailable KAI RAMIREZ Attending Unavailable AB, WONG WILLIAM Primary Care Unavailable JUAN CASAS Attending Unavailable AB, WONG WILLIAM Primary Care Unavailable EMANUEL FLOWER Attending Unavailable MIGUEL METZ Attending Unavailable AB, WONG Admitting Unavailable AB, WONG Attending Unavailable AB, WONG Primary Care Unavailable AB, WONG Consulting Unavailable PROVIDER, UNKNOWN Consulting Unavailable Koko, Dr. Jensen Turner Admitting Unavailable Koko, Dr. Jensen Turner Attending Unavailable Ofelia Jean Admitting Unavailable Ofelia Jean Attending Unavailable Clotilde, Dr. Primo Elias Admitting Unavailable Clotilde, Dr. Primo Elias Attending Unavailable Creasap, Dr. Kai Bhardwaj Admitting Unavailable Creasap, Dr. Kai Bhardwaj Attending Unavailable PROBLEMS PROBLEMS DATE TYPE CONDITION / CODE ATTENDING STATUS SOURCE Unknown G89.18 - Other acute Cebul, Katherine [facility] postprocedural pain / Community G89.18(ICD-10) Hospital Repository Unknown N18.5 - Chronic kidney Cebul, Katherine [facility] disease, stage 5 / Community N18.5(ICD-10) Hospital Repository Unknown N17.9 - Acute kidney Cebul, Katherine [facility] failure, unspecified / Community N17.9(ICD-10) Hospital Repository Unknown Z01.818 - Encounter Cebul, Katherine [facility] for other Community preprocedural Hospital examination / Repository Z01.818(ICD-10) Unknown T82.590A - Other Cebul, Katherine [facility] mechanical Community complication of Hospital surgically created Repository arteriovenous fistula, initial encounter / T82.590A(ICD-10) Unknown I25.2 - Old myocardial CebulKatherine [facility] infarction / Community I25.2(ICD-10) Hospital Repository Unknown F17.200 - Nicotine Chepe Barrientos [facility] dependence, Community unspecified, Hospital uncomplicated / Repository F17.200(ICD-10) Unknown E78.5 - Chepe Barrientos [facility] Hyperlipidemia, Community unspecified / Hospital E78.5(ICD-10) Repository Unknown N40.0 - Benign Chepe Barrientos [facility] prostatic hyperplasia Community without lower urinary Hospital tract symptoms / Repository N40.0(ICD-10) Unknown I50.33 - Acute on Moodispaw, Active [facility] chronic diastolic [facility] (congestive) heart Hospital failure / Repository I50.33(ICD-10) Unknown 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, 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 Repository without angina pectoris / I25.10(ICD-10) Unknown R94.31 - Abnormal Moodisp[place], Active [facility] electrocardiogram [facility] [ECG] [EKG] / Hospital R94.31(ICD-10) Repository Unknown I13.0 - Hypertensive Moodispaw, Active [facility] heart and chronic [facility] kidney disease with Hospital heart failure and Repository stage 1 through stage 4 chronic kidney disease, or unspecified chronic kidney disease / I13.0(ICD-10) Unknown N18.9 - Chronic kidney Itz Bennett [facility] disease, unspecified / Community N18.9(ICD-10) Hospital Repository Unknown J90 - Pleural SaschaElie martins Active [facility] effusion, not Community elsewhere classified / Hospital J90(ICD-10) Repository Unknown J96.01 - Acute SaschaElie martins [facility] respiratory failure Community with hypoxia / Hospital J96.01(ICD-10) Repository Unknown F17.210 - Nicotine SaschaElie martins [facility] dependence, Community cigarettes, Hospital uncomplicated / Repository F17.210(ICD-10) Unknown I10 - Essential Elei Caicedo [facility] (primary) hypertension Community / I10(ICD-10) Hospital Repository Unknown J96.21 - Acute and Elie Caicedo [facility] chronic respiratory Community failure with hypoxia / Hospital J96.21(ICD-10) Repository Unknown J96.22 - Acute and Elie Caicedo [facility] chronic respiratory Community failure with Hospital hypercapnia / Repository J96.22(ICD-10) Admitting Occlusion and stenosis [facility] [place] [address] diagnosis of unspecified carotid [facility] artery / Repository I65.29(ICD-10) Admitting Dizziness and [facility] 8 diagnosis giddiness / [facility] R42(ICD-10) Repository Principle Iron deficiency WONG BERGER [place] [address] Diagnosis anemia, unspecified / [facility] D509(ICD-10) Hospital Repository Admitting Unspecified [facility] ([facility]est[facility] Three failure / Repository I50.30(ICD-10) Admitting Occlusion and stenosis [place] [address] diagnosis of bilateral carotid Three arteries / Repository I65.23(ICD-10) Admitting Atherosclerotic heart [place] [address] diagnosis disease of [place] Three coronary artery Repository without angina pectoris / I25.10(ICD-10) Admitting Chronic kidney OFELIA JEAN [facility] 8 diagnosis disease, stage 4 L. Three (severe) / Repository N18.4(ICD-10) Admitting Encounter for general EMANUEL FLOWER [facility] 8 diagnosis adult medical [facility]I Repository examination without abnormal findings / Z00.00(ICD-10) Admitting Mixed hyperlipidemia / KATHERINE MILLIGAN [place] [address] diagnosis E78.2(ICD-10) [facility] Three Repository Admitting Acute on chronic KATHERINE MILLIGAN [place] [address] diagnosis systolic (congestive) [facility] heart failure / Repository I50.23(ICD-10) Admitting Peripheral vascular [facility] 7 diagnosis disease, unspecified / [facility] I73.9(ICD-10) Repository Admitting Atherosclerotic heart KATHERINE MILLIGAN [facility] 7 diagnosis disease of [place] [facility] Three coronary artery with Repository unspecified angina pectoris / I25.119(ICD-10) Admitting Essential (primary) [facility] 6 diagnosis hypertension / [facility] Three I10(ICD-10) Repository Admitting Presence of coronary [facility] 5 diagnosis angioplasty implant [facility] Three and graft / Repository Z95.5(ICD-10) PROCEDURES PROCEDURES No Procedure Records FoundRESULTS RESULTS TYPE AND SCREEN Collected: 10/25/2018 Status: F Source: [place] 5:13 PM [facility] REPOSITORY Order Comment: CMV NEG?* N Give When? 10/26/18 Irradiated? N Leukodepleted? Y Reason for Type AND Screen/Red Cells: ANEMIA TYPE CODE TESTS RESULT OUT OF RANGE REFERENCE UNITS LAB B10.0800 A Normal BLOOD TYPE GEL NEGATIVE LAB B100.4000 Normal Antibody NEGATIVE Screen Performed By: #### B101.7450 #### [facility] [address] [place], [place], [address] RC Collected: 10/25/2018 Status: F Source: [place] 5:13 PM [facility] REPOSITORY TYPE CODE TESTS RESULT OUT OF REFERENCE UNITS RANGE LAB U100.0000 [id number] TRANSFUSED PRODUCT: T AND S with Crossmatch, Red Cells COUNT: 2 Performed By: #### U100.0000 #### [facility] - refer to report for specific site HEMOGLOBIN Collected: 10/25/2018 Status: F Source: [place] 11:35 AM [facility] REPOSITORY TYPE CODE TESTS RESULT OUT OF RANGE REFERENCE UNITS LAB L100.1300 13.0-16.5 g/dl Low HGB 7.2 Performed By: #### L100.1300 #### [facility] [address] [place], [address] INITAL EVALUATION (1) Observed: 10/19/2018 Status: F Source: [place] - PT 2:41 PM [facility] REPOSITORY [facility] [address] [place] [address] / REHABILITATION SERVICES INITIAL EVALUATION MR#: [id number] Acct: [id number] Name: ANGELINA GIMENEZ Jr. Rep #: [id number] : 1950 67 From: Pascale Zamora DPT Referring Dr.: SEUN Berger Status: REG RCR Insurance: [employer] MEDICARE PPO SELF PAY INSURANCE Patient's Visit Information ANGELINA GIMENEZ Jr. is a 67 year old M referred to Physical Therapy by SEUN Poe with a diagnosis of . Date of Evaluation: 10/19/18 Physical Therapist: Pascale Zamora DPT - Visit Plan Plan: Scooter Evaluation sent to MD - Subjective Findings: Patient reports that in 1999 his legs started hurting and have progressed- he has vascular diseases and degenerative arthritis. The only blood supply he is getting is from the leaking of his veins- has tried to do stents but it is not working. Is unable to have bypass surgery due to his weak heart. Is on dyalysis 3-4x a week- started in May and they have upgraded it to chronic. Goes to [employer] and is on the machine for [address]- takes him to/from. [place] by the front door and he ambulates inside. Uses a cane/walker in the home but not in the community. But he does not go out very often. Uses a shopping scooter when he does go. He does not sleep well due to the pain in the LE. They ache all the time. Worst: 10/10. Best: 0/10 but very seldom. Eases: sitting and resting. Agg: walking or being up on the legs. Pain is from the knees down- blocked right about the ankle. Numbness and Tingling in the feet. Does have a way to put the scooter on the back of the car and also own a fern picker truck. Has tried a 3 wheel scooter and does not feel safe on it and needs to have a 4 wheel. Fell today before he got to therapy- step was higher than he thought it would be. Can't do steps unless he has hand rail to pull him up. Has 2 stairs at home with a handrail- Single level once he is inside. Does have access in the back to run the scooter straight in. Plans to use the w/c inside and outside. His house is able to accomodate. He sponge bathes due to the port- is to afraid to shower due to falls. cleans but he does the cooking- a little bit at a time or helps- has a chair he can sit on in the kitchen. Has never had a scooter before. Starting to have skin breakdown on his buttocks- they have been using cream. - Objective Posture: FH, RS- patient slumps to the right in chair- weight shifts frequently in hard chair to decreased pressure on buttocks. Gait: slow parth- wide base of support. Ambualtes in clinic without AD but always looking to hold onto the wall, or anything that he passes for stability. Ambulated 25 feet before required to stop and rest his legs and catch his breathe from pain. Then was able to ambulate an additional 25 feet. When sitting after ambulation took 3 min for patient to resume ability to continue evaluation. Stairs: asc/desc 8 recip x 3 with significant UE A. HR/TR: able with pain in LE and required UE A. SLS: unable- balance is poor. Edema: pitting is mild today- reports taking 9 lbs of fluid off yesterday. ROM: WFL in all planes in UE and LE. Strength: Shoulder: 4/5, Elbow: 4+/5, Wrist: 4+/5, General Milling Superintendent: equal and strong. Core: poor, Hip: 4-/5 throughout, Knee: 4/5, Ankle: 5/5 - Anticipated Interventions Thank you for the opportunity to evaluate your patient. For Medicare and Medicare HMO plans, please review the plan of care and approve it. It will need to be FAXED BACK to us at [phone] for Medicare purposes. For Medicare only, by signing this I certify the plan of care. Please let me know if there are questions or concerns regarding this plan of care. Physician Signature: Date: <Electronically signed by Pascale Zamora DPT> 10/19/18 1441 CC: SEUN Berger ELKylie Signed SURGERY VISIT REPORT Observed: 10/19/2018 Status: F Source: [place] 10:28 AM [facility] REPOSITORY [facility] [address] [place] [address] OFFICE VISIT Date of Service: 10/19/18 MR#: [id number] Acct: [id number] Name: LONANGELINA Uzair Adams. Rep #: [id number] : 1950 Provider: Katherine Lua MD Age/Sex: 67/M Location: [facility] Status: Signed Intake Intake Visit Reasons: PO Fistulagram 09/28 Chief Complaint: recheck fistula In Home Aide Required: No Is patient in pain?: No Allergies irbesartan [From Avapro] Allergy (Severe, Verified 10/19/18 10:17) Blisters zolpidem [From Ambien] Adverse Reaction (Severe, Verified 10/19/18 10:17) made me go crazy, memory loss Medications Ropinirole HCl [Requip] 1 mg PO QHS 01/28/18 [History Confirmed 10/05/18] Rosuvastatin Calcium [Crestor] 40 mg PO QHS 01/28/18 [History Confirmed 10/05/18] Albuterol Aerosols [Ventolin Aerosols] 2.5 mg INHALATION Q4H PRN 05/10/18 [History Confirmed 10/05/18] Amlodipine [Norvasc] 10 mg PO DAILY 05/10/18 [History Confirmed 10/05/18] Lactulose 15 ml PO DAILY PRN 07/23/18 [History Confirmed 10/05/18] Alprazolam [Xanax] 0.5 mg PO TID PRN 08/25/18 [History Confirmed 10/05/18] Ferric Citrate [Auryxia] 210 mg PO BIDAC 08/25/18 [History Confirmed 10/05/18] Prednisone 10 mg PO DAILY 08/25/18 [History Confirmed 10/05/18] Aspirin E.C. [Ecotrin] 81 mg PO DAILY@0800 09/11/18 [History Confirmed 10/05/18] Carvedilol [Coreg (Beta Lesa)] 25 mg PO BID 09/11/18 [History Confirmed 10/05/18] Clopidogrel Bisulfate [Plavix] 75 mg PO DAILY 09/11/18 [History Confirmed 10/05/18] Ipratropium/Albuterol Sulfate [Duoneb] 3 ml INHALATION Q4H PRN 09/11/18 [History Confirmed 10/05/18] Isosorbide Mononitrate [Isosorbide Mononitrate ER] 30 mg PO DAILY 09/11/18 [History Confirmed 10/05/18] Sennosides [Senna Lax] 8.6 mg PO QHS PRN 09/11/18 [History Confirmed 10/05/18] Tamsulosin HCl [Flomax] 0.4 mg PO BID 09/11/18 [History Confirmed 10/05/18] bumetanide 2 mg tablet 2 mg PO BID tab 09/28/18 [History Confirmed 10/05/18] hydralazine 25 mg tablet 25 mg PO TID tab 09/28/18 [History Confirmed 10/05/18] Subjective Details: 67-year-old gentleman. He has chronic hemodialysis. He had a transposition left upper extremity cephalic vein to brachial artery AV fistula created August 31, 2018. More recently on September 28, 2018 I performed a left upper extremity fistulogram Fistulogram demonstrates a transposed left upper extremity cephalic vein to brachial artery AV fistula. The arterial anastomosis and proximal portion of the fistula widely patent. The main body of the fistula widely patent. 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 Subsequent to the 12 x 4 [place] angioplasty there is now improved antegrade flow. There appears to be residual 20-30% stenosis of the vein but markedly improved over preintervention Patient has no specific complaints today regarding his arm. He still has somewhat of a hematoma at the operative site. He complains of bilateral leg pain left worse than the right. He said he has had previous intervention performed at [facility]. Today's appointment was not to address that. He is still a very heavy tobacco cigarette smoker Objective Details: Left upper extremity demonstrates a pulse and thrill and bruit within the transposed cephalic vein to brachial artery AV fistula. There is still residual induration at the incision site. No signs of infection. Hand is warm and viable. Assessment AND Plan Plan Admittedly the maturation of his transposed left upper extremity cephalic vein to brachial artery AV fistula is rather slow. He needs more time to allow the surgical site induration to resolve. As noted he has just had central venous angioplasty to assist with outflow. He is being dialyzed via hemodialysis catheters. I anticipate seeing him back in 4 weeks time hopefully at that point the fistula will be matured enough to allow for use. Regarding his lower extremity PAD I offered that we could review information from the outside hospital. He has already been told however that there is no additional treatment that can be provided. Katherine Lua M.D., F.A.C.S. Coding Level of Care Code Global Post Op 10/19/18 1028 <Electronically signed by Katherine Lua MD> Date Katherine Lua MD Cosigner Signature: Date (if applicable) CC: SURGERY VISIT REPORT Observed: 10/09/2018 Status: F Source: [place] 10:03 [facility] REPOSITORY [facility] [address] [place] [address]. [address] [place] [address] OFFICE VISIT Date of Service: 10/05/18 MR#: [id number] Acct: [id number] Name: ANGELINA GIMENEZ Jr. Rep #: [id number] : 1950 Provider: Tiara Perales PA-C Age/Sex: 67/M Location: [facility] Status: Signed Intake Intake Visit Reasons: PO Fistulagram RC 09/28 Chief Complaint: Routine f/u In Home Aide Required: No Is patient in pain?: No Allergies irbesartan [From Avapro] Allergy (Severe, Verified 10/05/18 10:14) Blisters zolpidem [From Ambien] Adverse Reaction (Severe, Verified 10/05/18 10:14) made me go crazy, memory loss Medications Ropinirole HCl [Requip] 1 mg PO QHS 01/28/18 [History Confirmed 10/05/18] Rosuvastatin Calcium [Crestor] 40 mg PO QHS 01/28/18 [History Confirmed 10/05/18] Albuterol Aerosols [Ventolin Aerosols] 2.5 mg INHALATION Q4H PRN 05/10/18 [History Confirmed 10/05/18] Amlodipine [Norvasc] 10 mg PO DAILY 05/10/18 [History Confirmed 10/05/18] Lactulose 15 ml PO DAILY PRN 07/23/18 [History Confirmed 10/05/18] Alprazolam [Xanax] 0.5 mg PO TID PRN 08/25/18 [History Confirmed 10/05/18] Ferric Citrate [Auryxia] 210 mg PO BIDAC 08/25/18 [History Confirmed 10/05/18] Prednisone 10 mg PO DAILY 08/25/18 [History Confirmed 10/05/18] Aspirin E.C. [Ecotrin] 81 mg PO DAILY@0800 09/11/18 [History Confirmed 10/05/18] Carvedilol [Coreg (Beta Lesa)] 25 mg PO BID 09/11/18 [History Confirmed 10/05/18] Clopidogrel Bisulfate [Plavix] 75 mg PO DAILY 09/11/18 [History Confirmed 10/05/18] Ipratropium/Albuterol Sulfate [Duoneb] 3 ml INHALATION Q4H PRN 09/11/18 [History Confirmed 10/05/18] Isosorbide Mononitrate [Isosorbide Mononitrate ER] 30 mg PO DAILY 09/11/18 [History Confirmed 10/05/18] Sennosides [Senna Lax] 8.6 mg PO QHS PRN 09/11/18 [History Confirmed 10/05/18] Tamsulosin HCl [Flomax] 0.4 mg PO BID 09/11/18 [History Confirmed 10/05/18] bumetanide 2 mg tablet 2 mg PO BID tab 09/28/18 [History Confirmed 10/05/18] hydralazine 25 mg tablet 25 mg PO TID tab 09/28/18 [History Confirmed 10/05/18] Subjective Details: Patient is a 67 y/o male I am following for chronic renal failure. Dr. Lua performed a left upper extremity fistulogram with 12 x 4 [place] proximal subclavian angioplasty on 09/28/18. Findings included left subclavian vein the proximal venous stenosis. At the end of the procedure, there appeared to be residual 20-30% stenosis. Patient is currently on dialysis via chest catheter. Patient notes some discomfort. Objective Details: Left upper arm fistula- good pulse, diminished bruit and thrill. Minimal amount of ecchymosis noted. Dialysis removed the suture. Assessment AND Plan Problems 1. Chronic renal failure, stage 5 N18.5 Plan - Continue hand exercises - Follow-up with Dr. Lua in 2 weeks Coding Level of Care Code Global Post Op Diagnoses Chronic renal failure, stage 5 N18.5 10/09/18 1003 <Electronically signed by Tiara Perales PA-C> Date Tiara Perales PA-C Cosigner Signature: Date (if applicable) CC: CARDIOLOGY VISIT Observed: 09/28/2018 Status: F Source: [place] REPORT 2:17 PM [facility] REPOSITORY [facility] [address] [place] [address]. [address] [place] [address] OFFICE VISIT Date of Service: 09/28/18 MR#: [id number] Acct: [id number] Name: ANGELINA GIMENEZ Jr. Rep #: [id number] : 1950 Provider: Chepe Barrientos MD Age/Sex: 67/M Location: [facility] Status: Signed HPI HPI Chief Complaint: Routine f/u Details: OZIEL GIMENEZ, is a 67 M who presents to the office today for hospital follow-up. Patient is a history of tobacco abuse, hypertension, hypercholesterolemia, coronary artery disease status post angioplasty and stenting by myself at [facility] many years ago followed by multivessel bypass surgery. Patient is also been struggling with chronic renal insufficiency superimposed on BPH and was supposed to have a prostate procedure by Dr. Zhou. However, the patient develop worsening CHF on top of renal failure and was admitted to [facility] in the beginning of May 2018. The patient underwent right-sided thoracentesis as well as IV diuresis with worsening renal failure. He also underwent repeat left and right heart catheterization which demonstrated severe three-vessel coronary disease and widely patent grafts, as well as moderate pulmonary hypertension with pulmonary pressures in the mid 50s. The patient temporarily required hemodialysis via a right subclavian catheter, and is now here in follow-up. Unfortunately he continues to smoke a few cigarettes per day. Unfortunately my note from the hospital is not available as of today's visit. Patient is now on permanent dialysis 3 times per week. Today he underwent balloon angioplasty of his left subclavian artery to provide more blood flow to his fistula by Dr. Mcguire. Patient also got a second opinion with Dr. olmos who underwent a ureteroscopic evaluation and showed that his bladder was okay as well as his prostate. No plans for prostate surgery at this time. Patient has lost about 46 pounds in fluid since initiating hemodialysis. He has 1+ lower extremity edema. Unfortunately despite all of the patient's vascular, and renal problems, he continues to work. In our office today blood pressure is 140/44, pulse 68 and regular. His lungs are clear bilaterally, I cannot detect any egophony on the right side, is regular rate and rhythm, normal S1/S2 2 out of 6 holosystolic murmur. No edema. Lipids as of 05/02/18 showed HDL of 59 and an LDL of 3 His echocardiogram dated 04/08/18 showed an EF around 55%, RVSP of 42 mmHg consistent with mild pulmonary hypertension. Intake Vital Signs09/28/18 Height 5 ft 8 in 09/28/18 Weight: 174 lb 09/28/18 Body Mass Index (BMI) 26.4 09/28/18 Blood Pressure 140/44 H Intake Visit Reasons: 3 M FU (has dialysis M W F) In Home Aide Required: No Accompanied by: Is patient in pain?: No Allergies irbesartan [From Avapro] Allergy (Severe, Verified 09/27/18 20:31) Blisters zolpidem [From Ambien] Adverse Reaction (Severe, Verified 09/27/18 20:31) made me go crazy, memory loss Medications Ropinirole HCl [Requip] 1 mg PO QHS 01/28/18 [History Confirmed 09/28/18] Rosuvastatin Calcium [Crestor] 40 mg PO QHS 01/28/18 [History Confirmed 09/28/18] Albuterol Aerosols [Ventolin Aerosols] 2.5 mg INHALATION Q4H PRN 05/10/18 [History Confirmed 09/28/18] Amlodipine [Norvasc] 10 mg PO DAILY 05/10/18 [History Confirmed 09/28/18] Lactulose 15 ml PO DAILY PRN 07/23/18 [History Confirmed 09/28/18] Alprazolam [Xanax] 0.5 mg PO TID PRN 08/25/18 [History Confirmed 09/28/18] Ferric Citrate [Auryxia] 210 mg PO BIDAC 08/25/18 [History Confirmed 09/28/18] Prednisone 10 mg PO DAILY 08/25/18 [History Confirmed 09/28/18] Aspirin E.C. [Ecotrin] 81 mg PO DAILY@0800 09/11/18 [History Confirmed 09/28/18] Carvedilol [Coreg (Beta Lesa)] 25 mg PO BID 09/11/18 [History Confirmed 09/28/18] Clopidogrel Bisulfate [Plavix] 75 mg PO DAILY 09/11/18 [History Confirmed 09/28/18] Ipratropium/Albuterol Sulfate [Duoneb] 3 ml INHALATION Q4H PRN 09/11/18 [History Confirmed 09/28/18] Isosorbide Mononitrate [Isosorbide Mononitrate ER] 30 mg PO DAILY 09/11/18 [History Confirmed 09/28/18] Sennosides [Senna Lax] 8.6 mg PO QHS PRN 09/11/18 [History Confirmed 09/27/18] Tamsulosin HCl [Flomax] 0.4 mg PO BID 09/11/18 [History Confirmed 09/28/18] bumetanide 2 mg tablet 2 mg PO BID tab 09/28/18 [History Confirmed 09/28/18] hydralazine 25 mg tablet 25 mg PO TID tab 09/28/18 [History Confirmed 09/28/18] [facility] Medical History History of non-ST elevation myocardial infarction (NSTEMI) (Chronic 01/21/11) Atherosclerotic heart disease of [place] coronary artery without angina pectoris (Chronic) Acute renal failure superimposed on chronic kidney disease (Acute) Diastolic CHF (Acute) HLD (hyperlipidemia) (Chronic) HTN (hypertension) (Chronic) PAD (peripheral artery disease) (Chronic) COPD (chronic obstructive pulmonary disease) (Chronic) Tobacco dependence (Chronic) CKD (chronic kidney disease) (Chronic) Leukocytosis (Chronic) Anemia (Chronic) BPH (benign prostatic hyperplasia) (Chronic) Surgical History History of left heart catheterization (Chronic 01/21/11) S/P dialysis catheter insertion (Acute 05/22/18) History of right and left heart catheterization (Chronic 05/24/18) History of thoracentesis (Acute 05/22/18) Stented coronary artery (Chronic) S/P CABG x 3 (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 Lua for fistula. Severe cramp left leg now); negative for fatigue, weakness, body ache, fever(s), headache(s), chills, frequent falls, night sweats, daytime sleepiness, difficulty sleeping, excessive sweating, weight gain, weight loss, increased appetite, poor appetite or anorexia Eyes Eyes: Negative for blind spots, loss of peripheral vision, transient loss of vision, blurry vision, change in vision, double vision, floaters, tunnel vision or other ENT ENT: Negative for headache(s), dizziness, hearing loss, tinnitus, Nosebleed/epistaxis, balance problems, post nasal drip, lip swelling, tongue swelling, bleeding gums, hoarseness, neck pain, dry mouth or other Cardio Chest Pain: Yes (When balloon was inserted for fistula procedure in chest and arm today.) Palpitations: No Edema: Bilateral Muscle aches with walking: Bilateral Resp Respiratory: Positive for SOB with activity; negative for SOB at rest, SOB orthopnea\SOB lying down, Cough, Coughing up blood/hemoptysis, chest congestion, pain on inspiration, snoring, stridor, wheezing, crackles, paroxysmal nocturnal dyspnea or other GI GI: Negative nausea, vomiting, heartburn, constipation, belching, bloating, cramping, vomiting blood/hematemesis, bright, red blood in stools, black,tarry stools, loose stools, Difficulty Swallowing or other : Negative for hematuria, frequent nighttime urination/ nocturia, erectile dysfunction or abnormal vaginal bleeding Musc Musc: Negative for balance problems, muscle aches/ myalgia, muscle weakness or joint pain Skin Skin: Negative redness, non-healing lesions, rash, unusual bruising, skin ulcer, wounds, jaundice or other Neuro Neuro: Negative for weakness, headache(s), frequent falls, blurry vision, double vision, dizziness, lightheadedness, near syncope, syncope, orthostatic symptoms, confusion, memory loss, restless legs, vertigo, seizures, lack of coordination or other [place] Hematologic/Lymphatic: Negative for easy bleeding, easy bruising, enlarged lymph nodes or other Endo Endo: Negative for fatigue, excessive sweating, cold intolerance, heat intolerance, flushing, increased thirst/drinking, increased hunger, hair loss, hair growth or other Psych Psych: Negative for anxiety, depression, thoughts of harming anyone, thoughts of harming yourself, visual hallucinations, panic attacks or audible hallucinations Allergy Allergy/Immunology: Negative for lip swelling, Negative for tongue swelling, Negative for rash, Negative for throat swelling, Negative for hives Cardiology Exam Const Appearance: cooperative, healthy appearing and no acute distress Nutritional Appearance: well nourished Orientation: alert, oriented x3 and oriented to person Head Head: normal to inspection, atraumatic and normocephalic Nose: external nose normal Face and Sinus: face symmetric Mouth: oral mucosae normal Eyes General: appearance normal, both eyes and all related structures Eyelids: eyelids normal Conjunctivae: conjunctivae normal Pupils: PERRL and normal by confrontation EOM: EOM intact bilaterally Neck Neck: normal visual inspection and full ROM Carotids: normal carotid upstroke Chest Chest inspection: normal inspection of the chest Auscultation: Bilateral: Clear to Auscultation Cardio Palpation: normal PMI Rate: regular rate Rhythm: regular rhythm Heart sounds: S1 normal and S2 normal GI GI: normal to inspection, no hepatosplenomegaly and bowel sounds present Neuro General: alert, oriented x3, awake, CN's II-XI intact bilaterally and moves all extremities Skin Skin: no rashes or lesions noted Extremities Pulses: Normal: Right Femoral Pulse, Left Femoral Pulse, Right Dorsalis Pedis Pulse, Left Dorsalis Pedis Pulse, Right Posterior Tibial Pulse, Left Posterior Tibial Pulse, Right Radial Pulse, Left Radial Pulse Lower Extremity Edema: None: Bilateral Psych Psychological: normal affect Assessment AND Plan 1. Atherosclerotic heart disease of [place] coronary artery without angina pectoris I25.10 2003, JASON to circumflex ; 10/10/2009 tsfer from [facility] to [facility], total of 5 bare metal stents to RCA; CABG X [address] [facility] 01/31/2011 (critical left main and restenosis of RCA stents) Plan 1. Coronary artery disease: No exertional anginal symptoms at this time. No indication for any additional testing. His blood pressure and heart rate are fairly well-controlled. He will continue his baby aspirin, amlodipine, Coreg, Plavix, hydralazine and Imdur. 2. Hyperlipidemia, unspecified hyperlipidemia type E78.5 Plan 2. Hyperlipidemia: His LDL and HDL cholesterol are fairly well-controlled. Continue Crestor. 3. Tobacco dependence F17.200 Plan 3. Tobacco dependence: I have once again had a long and thorough discussion with the patient regarding his tobacco abuse. I explained to him the relationship between use of tobacco and vascular disease which she will continue to be plagued with if he does not quit smoking. Patient states that he will try and cut down some more and is smoking, but I do not have high hopes for his completely ceasing tobacco use. 4. Return office in 6 months. This note was generated using a voice recognition system and there may be incorrect words, spelling or punctuation that were not noted when reviewing the office note prior to saving. Plan Detail Follow Up +6M (Barrientos) Coding Level of Care Code Off vis,est,level 3 Diagnoses Atherosclerotic heart disease of [place] coronary artery without angina pectoris I25.10 Hyperlipidemia, unspecified hyperlipidemia type E78.5 Tobacco dependence F17.200 Coding Level of Care Code Off vis,est,level 3 Diagnoses Atherosclerotic heart disease of [place] coronary artery without angina pectoris I25.10 Hyperlipidemia, unspecified hyperlipidemia type E78.5 Tobacco dependence F17.200 09/28/18 1417 <Electronically signed by Chepe Barrientos MD> Date Chepe Barrientos MD Cosigner Signature: Date (if applicable) CC: SEUN Berger OPERATIVE REPORT Observed: 09/28/2018 Status: F Source: [place] 11:27 AM [facility] REPOSITORY [facility] Medical Records Department [address] [place] [id number] Operative Report 09/28/18 1122 MR#: [id number] Acct: [id number] Name: LONANGELINA Uzair Adams. Rep #: [id number] : 1950 67 From: Katherine Lua MD PCP: SEUN Poe Status: REG [facility] Location: [facility] Problem List (1) Problem with dialysis access Status: Acute Qualifiers: Encounter type: subsequent encounter Qualified Code(s): T82.898D - Other specified complication of vascular prosthetic devices, implants and grafts, subsequent encounter Report of Operation Date of Procedure: 09/28/18 Pre-Operative Diagnosis: Failure to mature left upper extremity transposed cephalic vein to brachial artery arteriovenous hemodialysis fistula with suspected proximal venous stenosis Post-Operative Diagnosis: Left subclavian vein the proximal venous stenosis Surgery/Procedure Performed:: Left upper extremity fistulogram with 12 x 4 [place] proximal subclavian angioplasty Description of Surgical Findings:: Timeout and informed consent was obtained. 67-year-old gent was taken to the special procedures lab placed on the table. He received 25 mcg of fentanyl as intravenous medication. The left extremity sterilely prepped draped. Ultrasound was used to identify the cephalic vein in the distal upper arm closer to the antecubital space. Under ultrasound guidance 2% lidocaine was instilled as a local anesthetic. A total of 1 cc was used. Micropuncture needle was inserted antegrade with flow. Micropuncture wire inserted. A 6 [place] short sheath was inserted. Using Isovue contrast to fistulogram was taken of the left upper arm and chest area. This demonstrated a high-grade subclavian vein stenosis proximal adjacent to the entrance of the left internal jugular vein. There was venous backflow noted. An 035 angled Glidewire was advanced. The 6 [place] sheath was exchanged out for a 7 [place] sheath. A 12 x 4 [place] balloon was inserted. 2 different insufflations of the proximal left subclavian was performed. During that a retrograde injection of the more proximal portion of the fistula was performed demonstrating widely patent arterial anastomosis. At this completion of the angioplasty follow-up fistulogram was obtained now demonstrated significant improvement Sheath was removed U suture of 4-0 nylon was placed there was a pulse thrill and bruit within the fistula currently. Hemostasis was intact blood loss minimal no apparent complication hand was viable Fistulogram demonstrates a transposed left upper extremity cephalic vein to brachial artery AV fistula. The arterial anastomosis and proximal portion of the fistula widely patent. The main body of the fistula widely patent. 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 Subsequent to the 12 x 4 [place] angioplasty there is now improved antegrade flow. There appears to be residual 20-30% stenosis of the vein but markedly improved over preintervention Katherine Lua M.D., F.A.C.S. Type of Anesthesia:: IV Sedation 09/28/18 1127 <Electronically signed by Katherine Lua MD> Date Katherine Lua MD CC: SEUN Berger; Katherine Lua MD Signed SURGERY VISIT REPORT Observed: 09/19/2018 Status: F Source: [place] 3:58 PM [facility] REPOSITORY [facility] [address] [place] [address] OFFICE VISIT Date of Service: 09/19/18 MR#: [id number] Acct: [id number] Name: ANGELINA GIMENEZ Jr. Rep #: [id number] : 1950 Provider: Tiara Perales PA-C Age/Sex: 67/M Location: [facility] Status: Signed Intake Vital Signs09/19/18 Body Mass Index (BMI) 28.3 Intake Visit Reasons: PO Fistula Placement RC Chief Complaint: sob Allergies irbesartan [From Avapro] Allergy (Severe, Verified 09/19/18 13:10) Blisters zolpidem [From Ambien] Adverse Reaction (Severe, Verified 09/19/18 13:10) made me go crazy, memory loss Medications Ropinirole HCl [Requip] 1 mg PO QHS 01/28/18 [History Confirmed 09/11/18] Rosuvastatin Calcium [Crestor] 40 mg PO QHS 01/28/18 [History Confirmed 09/11/18] Albuterol Aerosols [Ventolin Aerosols] 2.5 mg INHALATION Q4H PRN 05/10/18 [History Confirmed 09/11/18] Amlodipine [Norvasc] 10 mg PO DAILY 05/10/18 [History Confirmed 09/11/18] Lactulose 15 ml PO DAILY PRN 07/23/18 [History Confirmed 09/11/18] Alprazolam [Xanax] 0.5 mg PO TID PRN 08/25/18 [History Confirmed 09/11/18] Ferric Citrate [Auryxia] 210 mg PO BIDAC 08/25/18 [History Confirmed 09/11/18] Prednisone 10 mg PO DAILY 08/25/18 [History Confirmed 09/11/18] Aspirin E.C. [Ecotrin] 81 mg PO DAILY@0800 09/11/18 [History Confirmed 09/11/18] Carvedilol [Coreg (Beta Lesa)] 25 mg PO BID 09/11/18 [History Confirmed 09/11/18] Clopidogrel Bisulfate [Plavix] 75 mg PO DAILY 09/11/18 [History Confirmed 09/11/18] Ipratropium/Albuterol Sulfate [Duoneb] 3 ml INHALATION Q4H PRN 09/11/18 [History Confirmed 09/11/18] Isosorbide Mononitrate [Isosorbide Mononitrate ER] 30 mg PO DAILY 09/11/18 [History Confirmed 09/11/18] Sennosides [Senna Lax] 8.6 mg PO QHS PRN 09/11/18 [History Confirmed 09/11/18] Sucroferric Oxyhydroxide [Velphoro] 1,000 mg PO TID 09/11/18 [History Confirmed 09/11/18] Tamsulosin HCl [Flomax] 0.4 mg PO BID 09/11/18 [History Confirmed 09/11/18] hydrALAZINE [Apresoline] 25 mg PO BID 09/11/18 [History Confirmed 09/11/18] PFSH Medical History History of non-ST elevation myocardial infarction (NSTEMI) (Chronic 01/21/11) Atherosclerotic heart disease of [place] coronary artery without angina pectoris (Chronic) Acute renal failure superimposed on chronic kidney disease (Acute) Diastolic CHF (Acute) HLD (hyperlipidemia) (Chronic) HTN (hypertension) (Chronic) PAD (peripheral artery disease) (Chronic) COPD (chronic obstructive pulmonary disease) (Chronic) Tobacco dependence (Chronic) CKD (chronic kidney disease) (Chronic) Leukocytosis (Chronic) Anemia (Chronic) BPH (benign prostatic hyperplasia) (Chronic) Surgical History History of left heart catheterization (Chronic 01/21/11) S/P dialysis catheter insertion (Acute 05/22/18) History of right and left heart catheterization (Chronic 05/24/18) History of thoracentesis (Acute 05/22/18) Stented coronary artery (Chronic) 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 Lua. Patient was hospitalized for hypertensive emergency and CHF. Patient denies pain/discomfort at the incision site. He denies numbness/tingling of the hand and fingers. He is currently on dialysis M, W, F. Patient is currently on Plavix and aspirin due to history of CABG. ROS General General: Yes weight change and fatigue; no appetite, colon cancer, breast cancer or weakness HEENT HEENT: No difficulty swallowing, eye injury, eye surgery, swollen glands or hoarseness Endo Endocrine: No thyroid disease, diabetes mellitus, thyroid cancer, Hair loss, heat intolerance or cold intolerance Skin Skin: No rash or changing moles Breast Breast: No left breast lump, right breast lump, nipple discharge, breast pain, abnormal mammogram, abnormal US or breast enlargement Musc Musculoskeletal: Yes arthritis; no back problems, rheumatoid arthritis, gout or joint pain Cardio Cardiovascular: Yes heart disease, high blood pressure, heart attack and heart stent; no murmur, pacemaker, atrial fibrillation, palpitations, shortness of breat with exertion or chest pain Psych Psychiatric: Yes anxiety; no depression or hearing voices Resp Respiratory: Yes shortness of breath, No sleep apnea, No cough, No COPD, No asthma, No emphysema, No wheezing Gastro Gastrointestinal: No abdominal pain, No nausea or vomiting, No diarrhea, No constipation, No blood in stool, No acid reflux, No hemorrhoids, No ulcers, No gallbladder problem, No black,tarry stools Fernando Hematologic: Yes blood thinners, No blood disorders, No bleeding, No anemia, No blood clots Neuro Neurologic: No system reviewed and no additional complaints, except as docu, No as per HPI, No abnormal walking, No abnormal hearing, No abnormal movements, No abnormal speech, No behavioral changes, No burning sensations, No confusion, No seizure-like activity, No unsteadiness, No dizziness, No localized weakness, No frequent falls, No headache(s), No lack of coordination, No loss of vision, No memory loss, No numbness, No other visual disturbances, No radiating pain, No restless legs, No sensory deficit, No fainting, No tingling, No tremor(s), No weakness, No other Exam Const General: cooperative, comfortable, no acute distress [facility] Head: normal to inspection Eyes General: appearance normal, both eyes and all related structures Neck Neck: normal visual inspection Neck mass: No Chest Breast Palpation: No nipple discharge Resp Effort AND Inspection: normal respiratory effort Auscultation: rales Cardio Rate: regular rate Rhythm: regular rhythm Heart Sounds: no murmurs GI Inspection: normal to inspection Palpation: soft Auscultation: normal bowel sounds Skin General: no rashes or lesions noted Neuro General: no focal motor deficits, CN's II-XI intact bilaterally Extrem General: normal to inspection Other: Left upper extremity- small hematoma noted. Good pulse, diminished bruit and thrill. Suggestive of venous stenosis. Psych Appearance: grossly normal Affect: normal affect Assessment AND Plan Problems 1. Chronic renal failure, stage 5 N18.5 2. Venous stenosis of left upper extremity I87.[address] Lua also evaluated this patient. Dr. Lua will plan to perform a left upper extremity fistulogram. Dr. Lua will plan to access via antegrade. He will plan to hold Plavix for 1 day prior to the procedure. He will continue aspirin. Procedure details, risks and benefits have been explained to the patient. Patient and his spouse have had the opportunity to ask and have questions answered. Patient desires to proceed with the proposed procedure. Orders Orders: Coding Level of Care Code Global Post Op Diagnoses Chronic renal failure, stage 5 N18.5 Venous stenosis of left upper extremity I87.1 09/19/18 1558 <Electronically signed by Tiara Perales PA-C> Date Tiara Perales PA-C Cosigner Signature: Date (if applicable) CC: Augusto Alaniz M.D. CBC W/DIFF, AUTOMATED Collected: 09/19/2018 Status: F Source: [place] 1:51 PM [facility] REPOSITORY TYPE CODE TESTS RESULT OUT OF RANGE REFERENCE UNITS LAB L100.1000 4.4-11.0 K/mm3 High WBC 11.1 LAB L100.1200 4.6-6.2 M/mm3 Low RBC 3.29 LAB L100.1300 13.0-16.5 g/dl Low HGB 10.4 LAB L100.1400 40-54 % Low HCT 33.5 LAB L100.1500 80-94 fL High MCV 101.8 LAB L100.1600 27.0-32.0 pg Normal MCH 31.6 LAB L100.1700 32-36 g/gl Low MCHC 31.0 LAB L100.1810 11.6-14.6 % High RDW CV 17.4 LAB L100.1820 35.1-43.9 fl High RDW SD 63.3 LAB L100.1900 150-450 K/mm3 Normal PLT 210 LAB L100.2000 6.2-12.0 fl Normal MPV 9.5 LAB L100.2100 47-70 % High NEUT% 77.6 LAB L100.2200 19-41 % Low LY% 10.9 LAB L100.2300 0-10 % Normal MONO% 9.5 LAB L100.2400 0-5 % Normal EO% 1.4 LAB L100.2500 0-1 % Normal BASO% 0.2 LAB L100.2550 0.0-0.9 % Normal IM GRAN % 0.400 Result Comment: IG% - Immature Granulocytes (promyelocytes, myelocytes and metamyelocytes) > 1% indicates that a LEFT SHIFT is Present. LAB L100.2620 2.0-7.7 X10 3/uL High Absolute Neut 8.6 LAB L100.2720 0.83-4.51 X10 3/ul Normal Absolute Lymph 1.21 Performed By: #### L100.0100 #### [facility] [address] [place], [place], [address] BASIC METABOLIC Collected: 09/19/2018 Status: F Source: [place] PROFILE ([facility]) 1:51 PM [facility] REPOSITORY TYPE CODE TESTS RESULT OUT OF RANGE REFERENCE UNITS LAB L501.0100 74-106 mg/dL Normal GLU 102 Result Comment: Fasting Glucose result from 100 to 125 mg/dL suggests IMPAIRED HOMEOSTASIS per A.D.A. criteria. Please note revised GLUCOSE reference range effective 2017. LAB L501.1000 7-18 mg/dL High BUN 42 LAB L501.1100 0.70-1.30 mg/dL High CREAT,SERUM 5.26 Result Comment: The validity of the calculated GFR AND GFRAA in patients over 70 years has not been determined. Clinical correlation is essential. LAB L501.1110 >60 mL/min Low EST GFR 12 Result Comment: Non- GFR Calc LAB L501.1115 >60 mL/min Low EST GFR - AA 14 Result Comment: GFR Calc LAB L501.1300 10-20 RATIO Low BUN/CRE 8.0 LAB L501.2200 8.5-10.1 mg/dL Low CA 8.3 LAB L501.5300 136-145 mmol/L Low NA 131 LAB L501.5600 3.5-5.1 mmol/L Normal K 4.6 LAB L501.5900 98-107 mmol/L Low CL 93 LAB L501.6100 21.0-32.0 mmol/L Normal CO2 27.0 LAB L501.6200 5-15 Normal GAP 11 Performed By: #### L500.2500 #### [facility] [address] [place], [address] 12 LEAD ELECTROCARDIOGRAM Observed: 09/15/2018 Status: F Source: [place] 9:27 AM [facility] REPOSITORY [facility] Cardiovascular Services [address] [place] [address] 12 Lead EKG 09/11/18 1048 MR#: [id number] Acct: [id number] Name: ANGELINA GIMENEZ . Rep #: [id number] : 1950 67 From: Mick Rm MD Attending Dr: Kai Mulligan MD Status: DIS IN Ordering Dr: Nickolas Mccollum MD Date: 09/11/18 Location: [facility] Sex: M C Admitted: 09/11/18 Test Reason : SOB Blood Pressure : / mmHG Vent. Rate : 074 BPM Atrial Rate : 074 BPM P-R Int : 226 ms QRS Dur : 090 ms QT Int : 404 ms P-R-T Axes : 020 070 133 degrees QTc Int : 448 ms Sinus rhythm with 1st degree A-V block Nonspecific T wave abnormality Abnormal ECG Confirmed by VIKY MONTENEGRO, MICK ([id number]), medical transcription editor JAVON GONZALEZ ([id number]) on 09/13/2018 3:55:21 PM Referred By: SONG Confirmed By:MICK RM MD 09/13/18 1555 Date Mick Rm MD CC: BARREL LATHE OPERATOR INSIDE-Izabel Berger; Kai Mulligan MD; Nickolas Mccollum MD Signed DISCHARGE SUMMARY Observed: 09/13/2018 Status: F Source: [place] 12:49 PM [facility] REPOSITORY [facility] Medical Records Department [address] [place] [address] Discharge Summary 09/13/18 1235 MR#: [id number] Acct: [id number] Name: ANGELINA GIMENEZ Jr. Rep #: [id number] : 1950 67 From: Kai Mulligan MD PCP: SEUN Poe Status: ADM IN Y Location: [place] [address] Discharge Date and Diagnosis - Problem List Patient Problems: Active and Suspected Problems (Last Reviewed 08/17/18 @ 09:55 by Judith Powell) Hypertensive emergency (Acute) Date of Admission: 09/11/18 Date of Discharge: 09/13/18 - Primary Discharge Diagnosis Active and Suspected Problems (Last Reviewed 08/17/18 @ 09:55 by Judith Powell) Hypertensive emergency (Acute) - Secondary Discharge Diagnosis Chronic Problems (Last Reviewed 08/17/18 @ 09:55 by Judith Powell) Chronic renal failure, stage 5 (Chronic) ESRD (end stage renal disease) (Chronic) History of non-ST elevation myocardial infarction (NSTEMI) (Chronic 01/21/11) History of left heart catheterization (Chronic 01/21/11) 10/13/[address] Barrientos @ [facility]:Per Dr. Jiménez @ [facility]: CABG recommended History of right and left heart catheterization (Chronic 05/24/18) Patent NICHOLAS to LAD, SVG to 1st OM and SVG to RCA. Elevated right heart pressures, significant Diastolic dysfunction per cath done @ [facility], Dr. Barrientos Stented coronary artery (Chronic) 2003, JASON to circumflex ; 10/13/2009 tsfer from [facility] to [facility], total of 5 bare metal stents to RCA per Dr. Barrientos @ [facility]: 3.5 X 18 Plant Assigner, followed distally by 3.0 X12 Plant Assigner to distal RCA;3.5 X 15 Plant Assigner, followed proximally by 4.0 X 18 Plant Assigner to Mid RCA; 4.0 X 18 Plant Assigner to Proximal RCA S/P CABG x 3 (Chronic 01/26/11) [facility] per Dr. Osito Hernandez: NICHOLAS to LAD, reverse SVG to OMbranch of CX, reverse SVG to PDA of RCA. PDA endarterectomy. Status post peripheral artery angioplasty with insertion of stent (Chronic 2010) Right common iliac, 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 01/31/2011 (critical left main and restenosis of RCA stents) HLD (hyperlipidemia) (Chronic) HTN (hypertension) (Chronic) PAD (peripheral artery disease) (Chronic) COPD (chronic obstructive pulmonary disease) (Chronic) Tobacco dependence (Chronic) CKD (chronic kidney disease) (Chronic) Leukocytosis (Chronic) Anemia (Chronic) BPH (benign prostatic hyperplasia) (Chronic) Hospital Course and Treatment Imaging Results: CXR: IMPRESSION: Findings in keeping with the CHF. Consults: Nephrology Operations: None Procedures: None Summary of Care Provided: HPI: The patient is a 67 year old M with a PMH as below presents with a 1 day h/o SOB. It began this morning at 1 am and some what resolved when he got up and then he had it again at 6 am which is why he presented to the ER. He was unable to go to his dialysis session today. In the ED he was hypertensive to 171 systolic and was SOB. He presented on BiPAP from EMS. In the ER he was found to be hypoxic on the ABG with a PaO2 of 130 while on BiPAP. Pro-BNP was close to his baseline, but CXR did demonstrate vascular congestion and pleural effusions. He was started on a nitro gtt and nephrology was consulted for dialysis. He denies eating excessively at [facility] and he closely monitors his salt intake. On admission he was 189# and after dialysis he is 178#. Vital Signs - 24 hr 09/13/18 11:01 74 18 09/13/18 08:48 97.8 F 71 18 160/77 H 95 09/13/18 07:19 72 09/13/18 06:50 71 20 H 95 09/13/18 03:16 68 19 H General: Alert, Oriented x3, Cooperative, No apparent distress HEENT: Atraumatic, PERRLA, EOMI, Normocephalic Oral: Moist Mucosa Neck: Supple, No JVD, Negative Carotid Bruits Lungs: Normal air movement, Diminished, Rales, Wheezes Cardiovascular: Regular rate, Regular Rhythm, Normal S1, Normal S2, No murmurs Abdomen: Soft, Non Tender, Non-Distended, No Hepato-splenomegaly Extremities: Edema - trace pitting edema b/l LE Skin: No rashes, No breakdown Neurological: Neuro grossly intact, Sensory exam intact to light touch and pain Psych/Mental Status: Normal Affect, Appropriate Hospital Course: 1. Acute hypoxic respiratory failure 2/2 acute on chronic diastolic heart failure/HTN/HLD - He presented with the signs and symptoms of heart failure. He was initially started on a nitroglycerin gtt in the ER for preload reduction which was discontinued after his dialysis session. After his dialysis session he felt much better and was breathing easier. He was able kristi taken off of BiPAP and maintained on 2.5 L NC. He states that he has oxygen at home for night time use and he is usually at 2L NC. He was discharged after a full dialysis session. He was feeling better and felt that his legs looked much better today with not much swelling. He was maintained and will be discharged on a fluid restriction of 1500 cc daily and I will discontinue his bumex as he now appears to be oliguric and dialysis dependant. I will continue him on all of his home medications. He is to follow-up with cardiology in a month. A repeat echo was not performed since he had had a cardiac cath and an echo within the last 6 months with a normal EF and grade 2 diastolic dysfunction. 2. ESRD/Anemia of chronic disease - He was able to have 2 dialysis sessions during his admission which helped significantly. He was also given a dose of iron sucrose prior to his first dialysis session by nephrology. He will have another round of dialysis on Tuesday through his port, until his fistula in his LUE matures, 3. His other diagnoses were evaluated and his home medications were continued where appropriate Patient Problems: Active and Suspected Problems (Last Reviewed 08/17/18 @ 09:55 by Judith Powell) Hypertensive emergency (Acute) - Physical Exam Vital Signs Temp Pulse Resp BP Pulse Ox 97.8 F 74 18 160/77 H 95 09/13/18 08:48 09/13/18 11:01 09/13/18 11:01 09/13/18 08:48 09/13/18 08:48 Oxygen Flow Rate (L/min) 2 Oxygen Delivery Method Nasal Cannula Weight: 180 lb 12.465 oz Body Mass Index (BMI) 28.3 Finger Stick Blood Glucose 200 Intake and Output for Last 24 Hours Intake Total 380.8 / 380.8 1195 / 1195 Output Total 2550 / 2550 200 / 200 200 / 200 Balance -2169.2 / -2169.2 995 / 995 -200 / -200 Laboratory Tests Past 24 Hrs Sodium 131 L Potassium 4.2 Chloride 93 L Carbon Dioxide 25.0 Anion Gap 13 BUN 81 H Discharge Activity: No Restrictions Call your doctor if you observe: Shortness of breath, Dizziness, Swelling in the ankles, Chest pain, Increased palpitations (irregular heartbeat) Home Medications: Medications to take at Discharge Ropinirole HCl [Requip] 1 mg PO QHS 01/28/18 Rosuvastatin Calcium [Crestor] 40 mg PO QHS 01/28/18 Albuterol Aerosols [Ventolin Aerosols] 2.5 mg INHALATION Q4H PRN 05/10/18 Amlodipine [Norvasc] 10 mg PO DAILY 05/10/18 Lactulose 15 ml PO DAILY PRN 07/23/18 Alprazolam [Xanax] 0.5 mg PO TID PRN 08/25/18 Ferric Citrate [Auryxia] 210 mg PO BIDAC 08/25/18 Prednisone 10 mg PO DAILY 08/25/18 Aspirin E.C. [Ecotrin] 81 mg PO DAILY@0800 09/11/18 Carvedilol [Coreg (Beta Lesa)] 25 mg PO BID 09/11/18 Clopidogrel Bisulfate [Plavix] 75 mg PO DAILY 09/11/18 Ipratropium/Albuterol Sulfate [Duoneb] 3 ml INHALATION Q4H PRN 09/11/18 Isosorbide Mononitrate [Isosorbide Mononitrate ER] 30 mg PO DAILY 09/11/18 Sennosides [Senna Lax] 8.6 mg PO QHS PRN 09/11/18 Sucroferric Oxyhydroxide [Velphoro] 1,000 mg PO TID 09/11/18 Tamsulosin HCl [Flomax] 0.4 mg PO BID 09/11/18 hydrALAZINE [Apresoline] 25 mg PO BID 09/11/18 Primary Care Physician: Wong Berger NP-C [Primary Care Provider] - Please follow up with your Primary Care Physician in: in 3- 5 days Please Follow Up With: Chepe Barrientos MD When: In 2-4 weeks Disposition: Home Minutes spent on discharge:: 35 Patient Condition:: Good Medical Necessity - Tobacco Use Smoking Status: Light Smoker (<10/day) Meaningful Use Info Meaningful Use Diagnoses (Choose all that apply): None applicable Code Visit Inpatient E AND M: 41236 Disch Hosp 09/13/18 1249 <Electronically signed by Kai Mulligan MD> Date Kai Mulligan MD Cosigner Signature (if applicable): Date CC: SEUN Berger; Kai Mulligan MD Signed DISCHARGE INSTRUCTION Observed: 09/13/2018 Status: F Source: [place] 12:33 PM [facility] REPOSITORY [facility] Medical Records Department [address] [place] [address] Instructions for Home/Discharge Instructions 09/13/18 1231 MR#: [id number] Acct: [id number] Name: ANGELINA GIMENEZ Jr. Rep #: [id number] : 1950 67 From: Kai Mulligan MD PCP: SEUN Poe Status: ADM IN - Discharge Diagnoses Current Active Problems: Current Active and Chronic Problems (Last Reviewed 08/17/18 @ 09:55 by Judith Powell) ESRD (end stage renal disease) (Chronic) Hypertensive emergency (Acute) You will use the following diet at home:: Cardiac, Fluid restricted (specify 2000 mls, 1500 mls) - 1500 Your food should be the consistency of: Regular Your liquids should be the consistency of: Regular/Thin Discharge Activity: No Restrictions Call your doctor if you observe: Shortness of breath, Dizziness, Swelling in the ankles, Chest pain, Increased palpitations (irregular heartbeat) Allergies/Adverse Reactions: Allergies irbesartan [From Avapro] Allergy (Severe, Verified 09/11/18 10:41) Blisters zolpidem [From Ambien] Adverse Reaction (Severe, Verified 09/11/18 10:41) made me go crazy, memory loss Medications to take at Discharge Ropinirole HCl [Requip] 1 mg PO QHS 01/28/18 Rosuvastatin Calcium [Crestor] 40 mg PO QHS 01/28/18 Albuterol Aerosols [Ventolin Aerosols] 2.5 mg INHALATION Q4H PRN 05/10/18 Amlodipine [Norvasc] 10 mg PO DAILY 05/10/18 Lactulose 15 ml PO DAILY PRN 07/23/18 Alprazolam [Xanax] 0.5 mg PO TID PRN 08/25/18 Ferric Citrate [Auryxia] 210 mg PO BIDAC 08/25/18 Prednisone 10 mg PO DAILY 08/25/18 Aspirin E.C. [Ecotrin] 81 mg PO DAILY@0800 09/11/18 Carvedilol [Coreg (Beta Lesa)] 25 mg PO BID 09/11/18 Clopidogrel Bisulfate [Plavix] 75 mg PO DAILY 09/11/18 Ipratropium/Albuterol Sulfate [Duoneb] 3 ml INHALATION Q4H PRN 09/11/18 Isosorbide Mononitrate [Isosorbide Mononitrate ER] 30 mg PO DAILY 09/11/18 Sennosides [Senna Lax] 8.6 mg PO QHS PRN 09/11/18 Sucroferric Oxyhydroxide [Velphoro] 1,000 mg PO TID 09/11/18 Tamsulosin HCl [Flomax] 0.4 mg PO BID 09/11/18 hydrALAZINE [Apresoline] 25 mg PO BID 09/11/18 Primary Care Physician: Wong Berger NP-C [Primary Care Provider] - Please follow up with your Primary Care Physician in: in 3- 5 days Test Results: Test results from this visit will be discussed in further detail at your follow-up appointment, if applicable. Please Follow Up With: Chepe Barrientos MD When: In 2-4 weeks 09/13/18 1233 <Electronically signed by Kai Mulligan MD> Date Kai Mulligan MD CC: SEUN Berger; Amanda Livingston MD BASIC METABOLIC Collected: 09/13/2018 Status: F Source: [place] PROFILE ([facility]) 5:03 AM [facility] REPOSITORY TYPE CODE TESTS RESULT OUT OF RANGE REFERENCE UNITS LAB L501.0100 74-106 mg/dL Normal GLU 96 Result Comment: Please note revised GLUCOSE reference range effective 2017. LAB L501.1000 7-18 mg/dL High BUN 81 LAB L501.1100 0.70-1.30 mg/dL High CREAT,SERUM 5.21 Result Comment: The validity of the calculated GFR AND GFRAA in patients over 70 years has not been determined. Clinical correlation is essential. LAB L501.1110 >60 mL/min Low EST GFR 12 Result Comment: Non- GFR Calc LAB L501.1115 >60 mL/min Low EST GFR - AA 14 Result Comment: GFR Calc LAB L501.1255 ml/min Normal Estimated CRCL 13.49 LAB L501.1300 10-20 RATIO Normal BUN/CRE 15.5 LAB L501.2200 8.5-10 mg/dL Normal .1 CA 8.7 LAB L501.5300 136-14 mmol/L Low 5 NA 131 LAB L501.5600 3.5-5. mmol/L Normal 1 K 4.2 LAB L501.5900 98-107 mmol/L Low CL 93 LAB L501.6100 21.0-3 mmol/L Normal 2.0 CO2 25.0 LAB L501.6200 5-15 Normal GAP 13 Performed By: #### L500.2500 #### [facility] [place], [address] MAGNESIUM Collected: 09/13/2018 Status: F Source: [place] 5:03 AM [facility] REPOSITORY TYPE CODE TESTS RESULT OUT OF RANGE REFERENCE UNITS LAB L501.5200 1.6-2.6 mg/dL Normal MG 2.3 Performed By: #### L501.5200 #### [facility] [address] [place], [address] CBC W/DIFF, AUTOMATED Collected: 09/12/2018 Status: F Source: [place] 6:20 AM [facility] REPOSITORY TYPE CODE TESTS RESULT OUT OF RANGE REFERENCE UNITS LAB L100.1000 4.4-11.0 K/mm3 High WBC 11.5 LAB L100.1200 4.6-6.2 M/mm3 Low RBC 3.15 LAB L100.1300 13.0-16.5 g/dl Low HGB 10.1 LAB L100.1400 40-54 % Low HCT 32.1 LAB L100.1500 80-94 fL High MCV 101.9 LAB L100.1600 27.0-32.0 pg High MCH 32.1 LAB L100.1700 32-36 g/gl Low MCHC 31.5 LAB L100.1810 11.6-14.6 % High RDW CV 16.5 LAB L100.1820 35.1-43.9 fl High RDW SD 58.7 LAB L100.1900 150-450 K/mm3 Normal PLT 205 LAB L100.2000 6.2-12.0 fl Normal MPV 10.6 LAB L100.2100 47-70 % High NEUT% 75.6 LAB L100.2200 19-41 % Low LY% 12.6 LAB L100.2300 0-10 % High MONO% 10.7 LAB L100.2400 0-5 % Normal EO% 0.6 LAB L100.2500 0-1 % Normal BASO% 0.2 LAB L100.2550 0.0-0.9 % Normal IM GRAN % 0.300 Result Comment: IG% - Immature Granulocytes (promyelocytes, myelocytes and metamyelocytes) > 1% indicates that a LEFT SHIFT is Present. LAB L100.2620 2.0-7.7 X10 3/uL High Absolute Neut 8.7 LAB L100.2720 0.83-4.51 X10 3/ul Normal Absolute Lymph 1.45 Performed By: #### L100.0100 #### [facility] [address] [place], [address] BASIC METABOLIC Collected: 09/12/2018 Status: F Source: [place] PROFILE ([place]) 6:20 AM [facility] REPOSITORY TYPE CODE TESTS RESULT OUT OF RANGE REFERENCE UNITS LAB L501.0100 74-106 mg/dL Normal GLU 91 Result Comment: Please note revised GLUCOSE reference range effective 2017. LAB L501.1000 7-18 mg/dL High BUN 59 LAB L501.1100 0.70-1.30 mg/dL High CREAT,SERUM 4.17 Result Comment: The validity of the calculated GFR AND GFRAA in patients over 70 years has not been determined. Clinical correlation is essential. LAB L501.1110 >60 mL/min Low EST GFR 15 Result Comment: Non- GFR Calc LAB L501.1115 >60 mL/min Low EST GFR - AA 19 Result Comment: GFR Calc LAB L501.1255 ml/min Normal Estimated CRCL 16.86 LAB L501.1300 10-20 RATIO Normal BUN/CRE 14.1 LAB L501.2200 8.5-10 mg/dL Low .1 CA 8.2 LAB L501.5300 136-14 mmol/L Low 5 NA 131 LAB L501.5600 3.5-5. mmol/L Normal 1 K 3.9 LAB L501.5900 98-107 mmol/L Low CL 94 LAB L501.6100 21.0-3 mmol/L Normal 2.0 CO2 25.0 LAB L501.6200 5-15 Normal GAP 12 Performed By: #### L500.2500 #### [facility] [address] [place], [address] HISTORY AND PHYSICAL Observed: 09/11/2018 Status: F Source: [place] EXAM 8:26 PM [facility] REPOSITORY [facility] Medical Records Department [address] [place] [address] History and Physical 09/11/182002 MR#: [id number] Acct: [id number] Name: ANGELINA GIMENEZ Jr. Rep #: [id number] : 1950 67 From: Kai Mulligan MD PCP: SEUN Poe Status: ADM IN Y Location: [place] [place] [address] Problem List (1) DAI (acute kidney injury) Status: Acute (2) ESRD (end stage renal disease) Status: Chronic (3) Diastolic CHF Status: Acute Qualifiers: Heart failure chronicity: acute on chronic Qualified Code(s): I50.33 - Acute on chronic diastolic (congestive) heart failure (4) HLD (hyperlipidemia) Status: Chronic Qualifiers: (5) HTN (hypertension) Status: Chronic Qualifiers: (6) PAD (peripheral artery disease) Status: Chronic (7) COPD (chronic obstructive pulmonary disease) Status: Chronic Qualifiers: (8) Anemia Status: Chronic (9) BPH (benign prostatic hyperplasia) Status: Chronic Qualifiers: History of Present Illness Date of Admission: 09/11/18 Chief Complaint: SOB The patient is a 67 year old M with a PMH as below presents with a 1 day h/o SOB. It began this morning at 1 am and some what resolved when he got up and then he had it again at 6 am which is why he presented to the ER. He was unable to go to his dialysis session today. In the ED he was hypertensive to 171 systolic and was SOB. He presented on BiPAP from EMS. In the ER he was found to be hypoxic on the ABG with a PaO2 of 130 while on BiPAP. Pro-BNP was close to his baseline, but CXR did demonstrate vascular congestion and pleural effusions. He was started on a nitro gtt and nephrology was consulted for dialysis. He denies eating excessively at [facility] and he closely monitors his salt intake. On admission he was 189# and after dialysis he is 178#. Past Medical History Past Medical History (Chronic Problems): Chronic Problems (Last Reviewed 08/17/18 @ 09:55 by Judith Powell) Chronic renal failure, stage 5 (Chronic) ESRD (end stage renal disease) (Chronic) History of non-ST elevation myocardial infarction (NSTEMI) (Chronic 01/21/11) History of left heart catheterization (Chronic 01/21/11) 10/13/[address] Barrientos @ [facility]:Per Dr. Jiménez @ [facility]: CABG recommended History of right and left heart catheterization (Chronic 05/24/18) Patent NICHOLAS to LAD, SVG to 1st OM and SVG to RCA. Elevated right heart pressures, significant Diastolic dysfunction per cath done @ [facility], Dr. Barrientos Stented coronary artery (Chronic) 2003, JASON to circumflex ; 10/13/2009 tsfer from [facility] to [facility], total of 5 bare metal stents to RCA per Dr. Barrientos @ [facility]: 3.5 X 18 Plant Assigner, followed distally by 3.0 X12 Plant Assigner to distal RCA;3.5 X 15 Plant Assigner, followed proximally by 4.0 X 18 Plant Assigner to Mid RCA; 4.0 X 18 Plant Assigner to Proximal RCA S/P CABG x 3 (Chronic 01/26/11) [facility] per Dr. Osito Hernandez: NICHOLAS to LAD, reverse SVG to OMbranch of CX, reverse SVG to PDA of RCA. PDA endarterectomy. Status post peripheral artery angioplasty with insertion of stent (Chronic 2010) Right common iliac, 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 01/31/2011 (critical left main and restenosis of RCA stents) HLD (hyperlipidemia) (Chronic) HTN (hypertension) (Chronic) PAD (peripheral artery disease) (Chronic) COPD (chronic obstructive pulmonary disease) (Chronic) Tobacco dependence (Chronic) CKD (chronic kidney disease) (Chronic) Leukocytosis (Chronic) Anemia (Chronic) BPH (benign prostatic hyperplasia) (Chronic) Medical History: Medical History (Last Reviewed 08/17/18 @ 09:55 by Judith Powell) History of non-ST elevation myocardial infarction (NSTEMI) (Chronic) Onset Date: 01/21/11 I25.2 Atherosclerotic heart disease of [place] coronary artery without angina pectoris (Chronic) I25.10 2003, JASON to circumflex ; 10/10/2009 tsfer from [facility] to [facility], total of 5 bare metal stents to RCA; CABG X [address] [facility] 01/31/2011 (critical left main and restenosis of RCA stents) Acute renal failure superimposed on chronic kidney disease (Acute) N17.9, N18.9 Diastolic CHF (Acute) I50.30 HLD (hyperlipidemia) (Chronic) E78.5 HTN (hypertension) (Chronic) I10 PAD (peripheral artery disease) (Chronic) I73.9 COPD (chronic obstructive pulmonary disease) (Chronic) J44.9 Tobacco dependence (Chronic) F17.200 CKD (chronic kidney disease) (Chronic) N18.9 Leukocytosis (Chronic) D72.829 Anemia (Chronic) D64.9 BPH (benign prostatic hyperplasia) (Chronic) N40.0 Allergies irbesartan [From Avapro] Allergy (Severe, Verified 09/11/18 10:41) Blisters zolpidem [From Ambien] Adverse Reaction (Severe, Verified 09/11/18 10:41) made me go crazy, memory loss Home Medications: Ambulatory Orders Medication Instructions Recorded Surgical History: Surgical History (Last Reviewed 08/17/18 @ 09:55 by Judith Powell) History of left heart catheterization (Chronic) Onset Date: 01/21/11 Z98.890 10/13/[address] Barrientos @ [facility]:Per Dr. Jiménez @ [facility]: CABG recommended S/P dialysis catheter insertion (Acute) Onset Date: 05/22/18 Z95.828, Z99.2 Right internal jugular access per Dr. Katherine Lua History of right and left heart catheterization (Chronic) Onset Date: 05/24/18 Z98.890 Patent NICHOLAS to LAD, SVG to 1st OM and SVG to RCA. Elevated right heart pressures, significant [facility]astolic [facility] History of thoracentesis (Acute) Onset Date: 05/22/18 Z98.890 1700 cc removed from right side Stented coronary artery (Chronic) Z95.5 2003, JASON to circumflex ; 10/13/2009 tsfer from [facility] to [facility], total of 5 bare metal stents to RCA per Dr. Barrientos @ [facility]: 3.5 X 18 Plant Assigner, followed distally by 3.0 X12 Plant Assigner to distal RCA;3.5 X 15 Plant Assigner, followed proximally by 4.0 X 18 Plant Assigner to Mid RCA; 4.0 X 18 Plant Assigner to Proximal RCA S/P CABG x 3 (Chronic) Onset Date: 01/26/[address] [facility] per Dr. Osito Hernandez: NICHOLAS to LAD, reverse SVG to OMbranch of CX, reverse SVG to PDA of RCA. PDA endarterectomy. Surgical History: coronary bypass surgery, tonsillectomy Smoking Status: Light Smoker (<10/day) - *Family History Maternal Family History: Family History (Last Reviewed 08/17/18 @ 09:55 by Judith Powell) Father CAD (coronary artery disease) Hypertension Kidney disease CVA (cerebral vascular accident) Other Cancer History Items: Heart Disease Paternal Family History: Family History (Last Reviewed 08/17/18 @ 09:55 by Judith Powell) Father CAD (coronary artery disease) Hypertension Kidney disease CVA (cerebral vascular accident) Other Cancer History Items: Heart Disease Review of Systems Constitutional: Denies: Chills, Fever, Weight Change HEENT: Denies: Head Aches, Sinus Congestion, Sinus Drainage Cardiovascular: Reports: Edema, Orthopnea. Denies: Chest Pain, Palpitations Respiratory: Reports: Shortness of Breath. Denies: Cough, Shortness of breath at rest, Sputum production Gastrointestinal: Denies: Abdominal Pain, Nausea, Vomiting Genitourinary: Denies: Dysuria Musculoskeletal: Denies: Joint Pain, Joint Tenderness Skin: Denies: Rash, Wounds Neurological: Denies: Numbness, Tingling, Focal weakness Psychiatric: Denies: Anxiety, Depression Hematologic/ Lymphatic: Denies: Easy Bruising, Easy Bleeding VTE Information - Inpt Only VTE Present on Admission: No Patient Problems: Active and Suspected Problems (Last Reviewed 08/17/18 @ 09:55 by Judith Powell) Hypertensive emergency (Acute) - Physical Exam General: Alert, Oriented x3, Cooperative, No apparent distress HEENT: Atraumatic, PERRLA, EOMI, Normocephalic Oral: Moist Mucosa Neck: Supple, No JVD, Negative Carotid Bruits Lungs: Normal air movement, Diminished, Rales, Wheezes Cardiovascular: Regular rate, Regular Rhythm, Normal S1, Normal S2, No murmurs Abdomen: Soft, Non Tender, Non-Distended, No Hepato-splenomegaly Extremities: Edema - 1-2+ pitting edema b/l LE Skin: No rashes, No breakdown Neurological: Neuro grossly intact, Sensory exam intact to light touch and pain Psych/Mental Status: Normal Affect, Appropriate Vital Signs Temp Pulse Resp BP Pulse Ox 98 F 69 18 144/63 H 97 09/11/18 18:25 09/11/18 19:00 09/11/18 19:00 09/11/18 19:00 09/11/18 19:00 Oxygen Delivery Method Bi-pap Weight: 178 lb 9.191 oz Body Mass Index (BMI) 28.3 Finger Stick Blood Glucose 200 Intake and Output for Last 24 Hours Output Total 2400 / 2400 Balance -2400 / -2400 Laboratory Tests Past 24 Hrs WBC RBC Hgb Hct MCV MCH MCHC Assessment/Plan All Active Problems (Last Reviewed 08/17/18 @ 09:55 by Judith Powell) DAI (acute kidney injury) (Acute) Hypertensive emergency (Acute) S/P dialysis catheter insertion (Acute 05/22/18) History of thoracentesis (Acute 05/22/18) Acute renal failure superimposed on chronic kidney disease (Acute) Acute respiratory failure with hypoxia (Acute) Diastolic CHF (Acute) 1. Acute hypoxic respiratory failure 2/2 acute on chronic diastolic heart failure/HTN/HLD - Will DC the nitro gtt - Will await to see if he will need dialysis tomorrow for the fluid overload state - Will continue with Bumex though he states that he not making much urine, will bladder scan to make sure there is no obstructive process given his h/o BPH - PT/OT - C/w crestor - I AND O and daily weights - Fluid restriction 1500 cc daily - c/w Norvasc, Coreg, hydralazine and imdur - He recently had a heart cath and echo since March which showed diastolic dysfunction with normal EF and moderate pulm HTN 2. ESRD with DAI - baseline Cr appears to be around 2-2.5 currently around 6 on admission - C/s to nephrology for dialysis tonight - removed 2.4 L, he usually has between 2.4 to 3.2 L removed on MWF - recent LUE fistula placed - Has a right IJ access 3. PAD - stable - c/w imdur, ASA and Plavix 4. COPD - Stable - probably complicating his SOB - c/w his home inhaler and prednisone 5. BPH - stable - On flomax - states he recently had a cystoscopy at [place] which was normal as well as a normal PSA 6. Anemia of chronic disease - given iron sucrose today before dialysis - c/w home sucroferric replacement as well as ferric citrate - H/H is at baseline around 10.7 7. RLS - stable - c/w requip DVT: SCD and Heparin Diet: Cardiac with a fluid restriction Code Visit Inpatient Luli DAS M: [id number] Init Hosp L3 09/11/182025 <Electronically signed by Kai Mulligan MD> Date Kai Mulligan MD Cosigner Signature: Date (if applicable) CC: SEUN Berger; Kai Mulligan MD Signed CONSULTATION Observed: 09/11/2018 Status: F Source: [place] 4:57 PM [facility] REPOSITORY [facility] Medical Records Department [address] [place] [place] [address] Consultation 09/11/18 1649 MR#: [id number] Acct: [id number] Name: ANGELINA GIMENEZ Jr. Rep #: [id number] : 1950 67 From: Amanda Livingston MD PCP: SEUN Poe Status: ADM IN Location: [place] [address] Problem List (1) ESRD (end stage renal disease) Status: Acute (2) Hypertensive emergency Status: Acute Consultation - Renal PCP/ Referring MD: Requesting physician: [] Primary care physician: SEUN Poe - History of Present Illness History of Present Illness: The patient is a 67 year old M PMH of ESRD. Pt is MWF schedule of HD. Pt presented with acute onset of SOB this morning. Pt could not make it to HD unit Pt was found to have pulmonary edema along with BP 190/100 Pt was admitted with HTN emergency and was started on Nitro drip Renal team was consulted for urgent HD. Pt was seen today during HD sessio. He is tolerating the session well with UF goal of 3L Pt has right IJ TC which is poorly functioning during HD session ROS: 12 systems review is negative except for some SOB[] - Allergies Allergies: Allergies irbesartan [From Avapro] Allergy (Severe, Verified 09/11/18 10:41) Blisters zolpidem [From Ambien] Adverse Reaction (Severe, Verified 09/11/18 10:41) made me go crazy, memory loss - Current Medications Current Medications: Current Medications Nitroglycerin/Dextrose 25 mg/ (N/A) 250 mls @ 3 mls/hr IV .[id number] JAIME Last Admin: 09/11/18 12:07 Dose: 3 mls/hr - Past Medical History Past Medical History (Chronic Problems): Chronic Problems (Last Reviewed 08/17/18 @ 09:55 by Judith Powell) Chronic renal failure, stage 5 (Chronic) History of non-ST elevation myocardial infarction (NSTEMI) (Chronic 01/21/11) History of left heart catheterization (Chronic 01/21/11) 10/13/[address] Barrientos @ [facility]:Per Dr. Jiménez @ [facility]: CABG recommended History of right and left heart catheterization (Chronic 05/24/18) Patent NICHOLAS to LAD, SVG to 1st OM and SVG to RCA. Elevated right heart pressures, significant [facility]astolic [facility] Stented coronary artery (Chronic) 2003, JASON to circumflex ; 10/13/2009 tsfer from [facility] to [facility], total of 5 bare metal stents to RCA per Dr. Barrientos @ [facility]: 3.5 X 18 Plant Assigner, followed distally by 3.0 X12 Plant Assigner to distal RCA;3.5 X 15 Plant Assigner, followed proximally by 4.0 X 18 Plant Assigner to Mid RCA; 4.0 X 18 Plant Assigner to Proximal RCA S/P CABG x 3 (Chronic 01/26/11) [facility] per Dr. Osito Hernandez: NICHOLAS to LAD, reverse SVG to OMbranch of CX, reverse SVG to PDA of RCA. PDA endarterectomy. Status post peripheral artery angioplasty with insertion of stent (Chronic 2010) Right common iliac, 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 01/31/2011 (critical left main and restenosis of RCA stents) HLD (hyperlipidemia) (Chronic) HTN (hypertension) (Chronic) PAD (peripheral artery disease) (Chronic) COPD (chronic obstructive pulmonary disease) (Chronic) Tobacco dependence (Chronic) CKD (chronic kidney disease) (Chronic) Leukocytosis (Chronic) Anemia (Chronic) BPH (benign prostatic hyperplasia) (Chronic) - Past Surgical History Surgical History: coronary bypass surgery, tonsillectomy - Social History Smoking Status: Light Smoker (<10/day) - Family History Maternal Family History: Family History (Last Reviewed 08/17/18 @ 09:55 by Judith Powell) Father CAD (coronary artery disease) Hypertension Kidney disease CVA (cerebral vascular accident) Other Cancer History Items: Heart Disease Paternal Family History: Family History (Last Reviewed 08/17/18 @ 09:55 by Judith Powell) Father CAD (coronary artery disease) Hypertension Kidney disease CVA (cerebral vascular accident) Other Cancer History Items: Heart Disease Patient Problems: Active and Suspected Problems (Last Reviewed 08/17/18 @ 09:55 by Judith Powell) ESRD (end stage renal disease) (Acute) Hypertensive emergency (Acute) - Physical Exam General: Alert, Oriented x3 HEENT: Atraumatic Oral: Moist Mucosa Neck: Supple, No JVD Lungs: Short of Breath, - - B/L crackles Cardiovascular: Regular rate, Normal S1, Normal S2 Abdomen: Bowel Sounds Present, Soft, Non Tender Extremities: No clubbing, No cyanosis, - - +2 edema of LE Skin: No rashes Musculoskeletal: No Tenderness to Palpation of Joints or Extremities Lymphatic: No Cervical, Supraclavicular, or Inguinal Adenopathy Neurological: Cranial nerves II-XII grossly intact, Neuro grossly intact Psych/Mental Status: Normal Affect Vital Signs Temp Pulse Resp BP Pulse Ox 98 F 64 20 H 162/57 H 99 09/11/18 16:00 09/11/18 16:00 09/11/18 16:00 09/11/18 16:00 09/11/18 16:00 Oxygen Delivery Method Bi-pap Weight: 84.5 kg Body Mass Index (BMI) 28.3 Finger Stick Blood Glucose 200 Laboratory Tests Past 24 Hrs WBC RBC Hgb Hct MCV MCH MCHC Assessment/Plan All Active Problems (Last Reviewed 08/17/18 @ 09:55 by Judith Powell) DAI (acute kidney injury) (Acute) ESRD (end stage renal disease) (Acute) Hypertensive emergency (Acute) S/P dialysis catheter insertion (Acute 05/22/18) History of thoracentesis (Acute 05/22/18) Acute renal failure superimposed on chronic kidney disease (Acute) Acute respiratory failure with hypoxia (Acute) Diastolic CHF (Acute) 1- ESRD on MWF. Pt goes to [facility] HD center in [place] HD session was arranged urgently for pulmonary edema: BQ 250, DQ 600, UF 3L, 2K bath. HD access is right IJ TC UE AVF is still maturing Will re evaluate the need of HD tomorrow 2- Anemia: Hgb >10. will continue to monitor for now 3- hypertensive emergency. BP is better. On Nitro drip Resume home BP meds UF with HD 4- acute hypoxemic RF from pulmonary edema On BiPAP. UF of 3 L today Renal team will continue to follow AMANDA LIVINGSTON 09/11/18 [id number] <Electronically signed by Amanda Livingston MD> Date Amanda Livingston MD Cosigner Signature (if applicable): Date CC: MABLEC Wong Berger; Amanda Livingston MD Signed EMERGENCY DEPARTMENT Observed: 09/11/2018 Status: F Source: [place] SUMMARY 11:59 AM [facility] REPOSITORY [facility] Medical Records Department [address] [place] [address] Emergency Department Summary 09/11/18 1153 MR#: [id number] Acct: [id number] Name: ANGELINA GIMENEZ Jr. Rep #: [id number] : 1950 67 From: Nickolas Mccollum MD PCP: Wong Ab, [employer] INSIDE-C Status: REG ER - ER Visit Summary Date of Service: 09/11/18 Chief Complaint: Shortness of breath History of Present Illness: The patient is a 67 M who arrived by ambulance on BiPAP for shortness of breath. He has history of COPD, CHF and end- stage renal disease. He is dialyzed on Tuesday, Tuesday and Tuesday. He is scheduled for dialysis later today. He states he was compliant with his diet over the holiday weekend. He denies fever, chills night sweats. He denies tightness or heaviness in his chest. He denies chest pain of any type. He states the swelling of his legs is common. He states he makes no urine. He states he has been compliant with his medication. History is limited secondary to respiratory distress. Please read written note for complete detail. Physical Examination: Patient is in respiratory distress. He is on BiPAP. HEENT exam is remarkable for slight exophthalmos is bilaterally. Trachea midline. No carotid bruit. Question of JVD at 75 degrees angulation. Rales noted bilaterally throughout with wheezing greater on right than left. Heart is regular. Heart tones are distant. Median sternotomy scar noted. Abdomen prominent soft nontender. 2+ pitting edema lower extremity. Difficult to assess pulses because of edema. Neuro exam is nonfocal. Test Results: EKG reveals a sinus rhythm rate of 74 with a first-degree AV block. There is nonspecific ST-T wave changes the 5 and 6. Chest x-ray reveals Vas-Cath right subclavian. Prominent heart with fluid overload versus congestive heart failure. White count is elevated at 17.8 thousand. Electro panel is abnormal. Sodium and chloride of 1 3294 respectively. Potassium slightly elevated 5.4. BUN is 102 with a creatinine of 6.05. Glucose is 130. CO2 18 with an anion gap of 20. ABG on BiPAP reveals pH 7.43, PCO2 35, PaO2 130 and total CO2 of 23.8. This reveals hypoxia. Emergency Department Course and Treatment: To evaluate patient's shortness of breath wheezing and rales chest x-ray was obtained to assess for CHF, fluid overload versus pneumonia. EKG to evaluate for cardiac ischemia. Electronic panel since he is due for dialysis. CBC to evaluate for white count and to determine if he is anemic. Patient received Atrovent because of the wheezing. After reviewing his vital signs chest x-ray he was placed on nitroglycerin for preload reduction. He was not given Lasix or Bumex as he makes no urine. The hospitalist and neurologist were paged for admission and emergent dialysis Treatment Plan: Admission and emergent dialysis Disposition: ICU Impression: 1. Respiratory failure with hypoxia 2. Fluid overload secondary to end-stage renal disease versus CHF versus combination 3. End-stage renal disease on hemodialysis 4. Bronchospasm 5. History coronary disease 6. History of congestive heart failure 7. History of hypertension This note was generated with [employer]ogyation software. It may contain incorrect words, spelling, and punctuation that were not noted in review of the chart prior to signing ED Disposition - Plan for ED Patient: Chief Complaint: Shortness of Breath Referrals: Wong Berger NP-C [Primary Care Provider] - What to do if you have Problems For any increased pain, shortness of breath, bleeding, nausea or vomiting, chest pain, or any unexpected problems, contact your Primary Care Provider. Call [facility] ([phone]) or report to the closest Emergency Room. Call 911 if necessary. 09/11/18 1159 <Electronically signed by Nickolas Mccollum MD> Date Nickolas Mccollum MD Cosigner Signature (If Indicated): Date CC: SEUN Berger LACTIC ACID Collected: 09/11/2018 Status: F Source: [place] 11:17 AM [facility] REPOSITORY Order Comment: Yes/No query for Sepsis Lactate Rule Y TYPE CODE TESTS RESULT OUT OF RANGE REFERENCE UNITS LAB L503.6005 0.4-2.0 mmol/L Normal LACTIC ACID 0.9 Performed By: #### L503.6005 #### [facility] [address] [place], [address] BNP,B-TYPE NATRIURETIC Collected: 09/11/2018 Status: F Source: [place] PEPTIDE 11:17 AM [facility] REPOSITORY TYPE CODE TESTS RESULT OUT OF RANGE REFERENCE UNITS LAB L503.6620 0-100 pg/mL High B-TYPE 9.2 ALISSA PEP Performed By: #### L503.6620 #### [facility] [place], [address] CBC W/DIFF, AUTOMATED Collected: 09/11/2018 Status: F Source: [place] 11:15 AM [facility] REPOSITORY TYPE CODE TESTS RESULT OUT OF RANGE REFERENCE UNITS LAB L100.1000 4.4-11.0 K/mm3 High WBC 17.8 LAB L100.1200 4.6-6.2 M/mm3 Low RBC 3.43 LAB L100.1300 13.0-16.5 g/dl Low HGB 10.7 LAB L100.1400 40-54 % Low HCT 33.8 LAB L100.1500 80-94 fL High MCV 98.5 LAB L100.1600 27.0-32.0 pg Normal MCH 31.2 LAB L100.1700 32-36 g/gl Low MCHC 31.7 LAB L100.1810 11.6-14.6 % High RDW CV 16.5 LAB L100.1820 35.1-43.9 fl High RDW SD 59.0 LAB L100.1900 150-450 K/mm3 Normal PLT 173 LAB L100.2000 6.2-12.0 fl Normal MPV 10.3 LAB L100.2100 47-70 % High NEUT% 92.1 LAB L100.2200 19-41 % Low LY% 3.5 LAB L100.2300 0-10 % Normal MONO% 3.9 LAB L100.2400 0-5 % Normal EO% 0.2 LAB L100.2500 0-1 % Normal BASO% 0.1 LAB L100.2550 0.0-0.9 % Normal IM GRAN % 0.200 Result Comment: IG% - Immature Granulocytes (promyelocytes, myelocytes and metamyelocytes) > 1% indicates that a LEFT SHIFT is Present. LAB L100.2620 2.0-7.7 X10 3/uL High Absolute Neut 16.4 LAB L100.2720 0.83-4.51 X10 3/ul Low Absolute Lymph 0.63 Performed By: #### L100.0100 #### [facility] [address] [place], [place], [address] BASIC METABOLIC Collected: 09/11/2018 Status: F Source: [place] PROFILE (BMP) 11:15 AM [facility] REPOSITORY TYPE CODE TESTS RESULT OUT OF RANGE REFERENCE UNITS LAB L501.0100 74-106 mg/dL High GLU 130 Result Comment: Fasting Glucose result greater than or equal to 126 mg/dL suggests DIABETES MELLITUS per A.D.A. criteria. Please note revised GLUCOSE reference range effective 2017. LAB L501.1000 7-18 mg/dL High alert BUN 102 Result Comment: Critical Result(s) Called at: 11:39:06 09/11/2018 by: Carly Alejandra LAB L501.1100 0.70-1.30 mg/dL CREAT,SERUM High 6.05 Result Comment: The validity of the calculated GFR AND GFRAA in patients over 70 years has not been determined. Clinical correlation is essential. LAB L501.1110 >60 mL/min Low EST GFR 10 Result Comment: Non- GFR Calc LAB L501.1115 >60 mL/min Low EST GFR - AA 12 Result Comment: GFR Calc LAB L501.1255 ml/min Normal Estimated CRCL 11.62 LAB L501.1300 10-20 RATIO Normal BUN/CRE 16.9 LAB L501.2200 8.5-10 mg/dL Normal .1 CA 9.1 LAB L501.5300 136-14 mmol/L Low 5 NA 132 LAB L501.5600 3.5-5. mmol/L High 1 K 5.5 LAB L501.5900 98-107 mmol/L Low CL 94 LAB L501.6100 21.0-3 mmol/L Low 2.0 CO2 18.0 LAB L501.6200 5-15 High GAP 20 Performed By: #### L500.2500, L501.4010 #### [facility] [address] [place], [address] TROPONIN-I Collected: 09/11/2018 Status: F Source: [place] 11:15 AM [facility] REPOSITORY TYPE CODE TESTS RESULT OUT OF RANGE REFERENCE UNITS LAB L501.4010 <0.045 ng/mL Normal 0.023 TROPONIN-I Result Comment: TROPONIN-I EXPECTED VALUES <0.045 Negative 0.045 - 0.590 Consistent with Cardiac Damage > OR = 0.600 Critical Value Not every elevated troponin is indicative of SC. These values should be used with clinical judgement in examining the patient's clinical picture for diagnosis. To establish a diagnosis of SC versus myocardial injury, there must be a demonstrated rise and/or fall in the troponin values, in addition to ischemic symptoms, EKG changes, new regional wall motion abnormality, and/or angiographical evidence. PLEASE NOTE: REFERENCE RANGES EDITED 18 Performed By: #### L500.2500, L501.4010 #### [facility] [address] [place], [place], [address] BLOOD GASES BY CPS Collected: 09/11/2018 Status: F Source: [place] 11:11 AM [facility] REPOSITORY TYPE CODE TESTS RESULT OUT OF RANGE REFERENCE UNITS LAB L9000.9990 Normal BLD GAS TYPE ART LAB L9001.1000 Normal SITE R Radial LAB L9001.1010 Normal MARY TEST POS LAB L9001.1050 O2 Normal Delivery Dev Bi / C PAP LAB L9001.1074 Normal FI02 45 LAB L9001.1088 Normal IPAP 18 LAB L9001.1090 Normal EPAP 8 LAB L9001.1104 Normal Results To ED LAB L9001.1105 Normal Time Given 1100 LAB L9001.1110 7.35-7.45 pH Normal - I-STAT 7.43 LAB L9001.1210 35-45 mmHg Normal pCO2 - ISTAT 35.2 LAB L9001.1310 75-100 mmHG High PO2 I-STAT 130 LAB L9001.2300 22-26 mmol/L Normal HCO3 ISTAT 23.3 LAB L9001.2400 -2 to +2 mmol/L BE Normal ISTAT -1 LAB L9001.2415 mmol/L Normal TOTAL CO2 24 ISTAT LAB L9001.2425 95-99 % Normal SO2 ISTAT 99 Performed By: #### L9000.0800 #### [facility] Point of Care [address] [place], [place] [address] CHEST 1 VIEW Observed: 09/11/2018 Status: F Source: EDDIE (PORTABLE) 10:46 AM [facility] REPOSITORY [facility] Imaging Services [address] [place] [address] Chest 1 View (Portable) MR#: [id number] Acct: [id number] Name: ANGELINA GIMENEZ Jr. Rep #: [id number] : 1950 M 67 From: Deven Hensley MD PCP: SEUN Poe Status: REG ER Study: Chest 1 View (Portable) Date of Exam: 09/11/18 Exam# [id number] Ordering Dr: Nickolas Mccollum MD STUDY: X-RAY CHEST REASON FOR EXAM: Male, 67 years old. Shortness of breath. TECHNIQUE: Single AP portable view of the chest. COMPARISON: Comparison is made with prior study dated July 24, 2018. FINDINGS: A right-sided double-lumen catheter is seen with the tip at the junction of the superior vena cava and right atrium. There is evidence of vascular congestion and CHF. Blunting of both costophrenic angles. Sternal cerclage wires and vascular clips are present from a prior sternotomy and coronary artery bypass graft procedure (CABG). Normal mediastinum and justyn. Normal visualized pulmonary arteries. There is atherosclerotic calcification of the aortic arch with tortuosity. There are diffuse degenerative changes of the visualized thoracic spine. Normal visualized ribs, clavicles, and shoulders. There is no demonstrated abnormality of the visualized soft tissue structures of the upper abdomen. RAD/Chest 1 View (Portable) IMPRESSION: Findings in keeping with the CHF. Electronically Signed: Deven Hensley MD at 11:25 EST Tel [phone], Service support , CC: SEUN Berger; Nickolas Mccollum MD [employer]ty Manufacturing Supervisor: Signed DISCHARGE INSTRUCTION Observed: 09/01/2018 Status: F Source: EDDIE 6:06 AM [facility] REPOSITORY [facility] Medical Records Department [address] [place] [address] Instructions for Home/Discharge Instructions 08/31/18 1007 MR#: [id number] Acct: [id number] Name: ANGELINA GIMENEZ Jr. Rep #: [id number] : 1950 67 From: Katherine Lua MD PCP: SEUN Poe Status: DEP INC Discharge Diet: Renal Diet Discharge Activity: May Not Drive - for 2-3 days or while taking narcotic pain medications., May Shower, May Take a Tub Bath - in 5 days. Lifting Restrictions: 5 pounds Keep extremity elevated above heart level: - - Keep arm elevated above the heart level for 3 days. Additional Activity Instructions:: Exercise hand vigorously with a stress ball. Call your doctor if your incision/area has: Continuous Slow Oozing, Sudden Increased Bleeding - apply pressure and call your doctor., Increased Pain/ Swelling, Increased Redness, Foul Smelling Discharge Call your doctor if you observe: Fever of 101 or Higher Suture Line Care: Avoid Pulling/Pushing, Avoid Pinching/Bending Cleanse incision/area with: Keep Dressing Clean AND Dry Additional Dressing/Incision Instructions:: Change or remove dressing in one day. May protect with a gauze bandaid. Allergies/Adverse Reactions: Allergies irbesartan [From Avapro] Allergy (Severe, Verified 08/31/18 08:45) Blisters zolpidem [From Ambien] Adverse Reaction (Severe, Verified 08/31/18 08:45) made me go crazy, memory loss Medications to take at Discharge Ropinirole HCl [Requip] 1 mg PO QHS 01/28/18 Rosuvastatin Calcium [Crestor] 40 mg PO QHS 01/28/18 Albuterol Aerosols [Ventolin Aerosols] 2.5 mg INHALATION Q4H PRN 05/10/18 Amlodipine [Norvasc] 10 mg PO DAILY 05/10/18 Carvedilol [Coreg (Beta Lesa)] 25 mg PO BID #60 tab 05/13/18 Aspirin E.C. [Ecotrin] 81 mg PO DAILY@0800 tab 05/25/18 Clopidogrel Bisulfate [Plavix] 75 mg PO DAILY #1 tab 05/25/18 Isosorbide Mononitrate [Imdur] 30 mg PO DAILY #30 tab 05/26/18 bumetanide 2 mg tablet 2 mg PO BID tab 06/29/18 Lactulose 15 ml PO DAILY PRN 07/23/18 Tamsulosin HCl [Flomax] 0.4 mg PO DAILY@1730 #30 cap 07/25/18 Alprazolam [Xanax] 0.5 mg PO QHS 08/25/18 Ferric Citrate [Auryxia] 210 mg PO BIDAC 08/25/18 Prednisone 10 mg PO DAILY 08/25/18 Sennosides [Senna Lax] 2 tab PO QHS 08/25/18 Ciprofloxacin [Cipro] 250 mg PO BID 08/31/18 Hydrocodone Bitart/Apap 5-325 [Hutchinson 5MG-325MG] 1 tablet PO Q6H PRN PRN 3 Days #5 tablet 08/31/18 The following prescriptions were given: Hydrocodone Bitart/Apap 5-325 [[place]inson 5MG-325MG] 1 tablet PO Q6H PRN PRN 3 Days #5 tablet PRN Reason: Pain Primary Care Physician: Wong Berger NP-C [Primary Care Provider] - Test Results: Test results from this visit will be discussed in further detail at your follow-up appointment, if applicable. Please Follow Up With: Katherine Lua MD - [phone] When: Call to make an appointment for follow up in 10 days 09/01/18 0606 <Electronically signed by Katherine Lua MD> Date Katherine Lua MD CC: SEUN Berger OPERATIVE REPORT Observed: 09/01/2018 Status: F Source: EDDIE 6:06 AM [facility] REPOSITORY [facility] Medical Records Department [address] [place] [address] Operative Report 08/31/18 1110 MR#: [id number] Acct: [id number] Name: ANGELINA GIMENEZ Jr. Rep #: [id number] : 1950 67 From: Katherine Lua MD PCP: SEUN Poe Status: [facility] Location: [facility] Problem List (1) Chronic renal failure, stage 5 Status: Chronic Report of Operation Date of Procedure: 08/31/18 Pre-Operative Diagnosis: Stage V chronic renal failure Post-Operative Diagnosis: Same Surgery/Procedure Performed:: Left upper extremity transposition cephalic vein to brachial artery arteriovenous fistula creation Description of Surgical Findings:: Timeout informed consent was obtained. 67-year-old gent was taken out from placement table underwent monitored anesthesia care. The left upper extremity was sterilely prepped and draped. 1% lidocaine mixed 50-50 with 0.5% Marcaine was used as local anesthetic. A total of 5 cc was used. Ultrasound had been performed preoperatively to map the cephalic vein. A slightly oblique incision was created sharp blunt dissection was used to identify the cephalic vein. Then I dissected free and continued to secure off side branches with hemoclips and I extended that dissection for approximately 10 cm proximally. That allowed for transposition and elevation of that cephalic vein in the distal upper arm. Then using sharp blunt dissection identified the brachial artery. Circumferential control was obtained. The patient received 8000 units of heparin. After adequate circling time peripheral vascular clamps were placed on the brachial artery. A 11 blade was used to make an arteriotomy which was extended with Jones scissors and this was performed in a slightly oblique nature. The vein was ligated distally with a Hemoclip and then it was spatulated and a end-to-side anastomosis was created with a running 7-0 Prolene. Prior to completion of there is a good antegrade and retrograde flow. The anastomosis was completed was noted be completely hemostatic. Immediately there was good flow within the fistula. Doppler confirmed good flow. The wound was closed in layers with a deep layer of interrupted 3-0 Vicryl and then a running septic or 4-0 Monocryl. Steri-Strips and Telfa and OpSite dressings were applied. Sponge and needle and instrument counts were correct. Blood loss was minimal. Hand was viable at the completion no apparent complication he was taken to the recovery area in satisfactory condition. Specimens none. Drains none. Blood loss minimal. Katherine Lua M.D., F.A.C.S. Type of Anesthesia:: Local MAC Anesthesiologist: Darren Rodriguez 09/01/18 0606 <Electronically signed by Katherine Lua MD> Date Katherine Lua MD CC: SEUN Berger; Katherine Lua MD Signed PSA TOTAL Collected: 08/22/2018 Status: F Source: [place] 3:56 PM [facility] REPOSITORY TYPE CODE TESTS RESULT OUT OF RANGE REFERENCE UNITS LAB [id number](LO ng/mL INC) Normal PSA Total 0.42 Result Comment: AGE-SPECIFIC REFERENCE RANGES FOR SERUM PSA REFERENCE RANGE NG/ML AGE ASIANS BLACKS WHITE 40-49 0- 2 0-2 0-2.5 50-59 0- 3 0-4 0-3.5 60-69 0- 4 0-4.5 0-4.5 70-79 0- 5 0-5.5 0-6.5 PSA INCREASES WITH AGE, RACE, AND EJACULATION WITHIN 48 HRS. [facility] VOL24,NO.2, , PG.339 Performed By: #### [id number] #### [facility] [employer] [address] [place] [address] SURGERY VISIT REPORT Observed: 08/17/2018 Status: F Source: [place] 10:52 AM [facility] REPOSITORY [facility] [address] [place] [address]. [address] [place], [place] [address] OFFICE VISIT Date of Service: 08/17/18 MR#: [id number] Acct: [id number] Name: ANGELINA GIMENEZ Jr. Rep #: [id number] : 1950 Provider: Katherine Lua MD Age/Sex: 67/M Location: [facility] Status: Signed Intake Intake Visit Reasons: Discuss Vein Mapping Results [facility] 08/03 Chief Complaint: bilateral carotid stenosis In Home Aide Required: No Is patient in pain?: No Allergies irbesartan [From Avapro] Adverse Reaction (Severe, Verified 08/17/18 09:56) Blisters zolpidem [From Ambien] Adverse Reaction (Severe, Verified 08/17/18 09:56) made me go crazy, memory loss Medications Ropinirole HCl [Requip] 1 mg PO QHS 01/28/18 [History Confirmed 08/17/18] Rosuvastatin Calcium [Crestor] 40 mg PO QHS 01/28/18 [History Confirmed 08/17/18] Albuterol Aerosols [Ventolin Aerosols] 2.5 mg INHALATION Q4H PRN 05/10/18 [History Confirmed 08/17/18] Amlodipine [Norvasc] 10 mg PO DAILY 05/10/18 [History Confirmed 08/17/18] Carvedilol [Coreg (Beta Lesa)] 25 mg PO BID #60 tab 05/13/18 [Rx Confirmed 08/17/18] Aspirin E.C. [Ecotrin] 81 mg PO DAILY@0800 tab 05/25/18 [Rx Confirmed 08/17/18] Clopidogrel Bisulfate [Plavix] 75 mg PO DAILY #1 tab 05/25/18 [Rx Confirmed 08/17/18] Isosorbide Mononitrate [Imdur] 30 mg PO DAILY #30 tab 05/26/18 [Rx Confirmed 08/17/18] bumetanide 2 mg tablet 2 mg PO BID tab 06/29/18 [History Confirmed 08/17/18] Metolazone [Zaroxolyn] 1 tab PO DAILY PRN 07/05/18 [History Confirmed 08/17/18] Lactulose 15 ml PO DAILY PRN 07/23/18 [History Confirmed 08/17/18] Potassium Chloride 10 meq PO DAILY PRN 07/23/18 [History Confirmed 08/17/18] Potassium Chloride [Klor-Con] 20 meq PO QHS 07/23/18 [History Confirmed 08/17/18] Ferrous Sulfate 325 mg PO BIDCM #60 tab 07/25/18 [Rx Confirmed 08/17/18] Levofloxacin [Levaquin] 500 mg PO Q48H #4 tab 07/25/18 [Rx Confirmed 08/17/18] Nepro Liquid [Nepro Carb Steady] 120 ml PO 4X/DAY #1 bottle 07/25/18 [Rx Confirmed 08/17/18] Tamsulosin HCl [Flomax] 0.4 mg PO DAILY@1730 #30 cap 07/25/18 [Rx Confirmed 08/17/18] PFS Medical History History of non-ST elevation myocardial infarction (NSTEMI) (Chronic 01/21/11) Atherosclerotic heart disease of [place] coronary artery without angina pectoris (Chronic) Acute renal failure superimposed on chronic kidney disease (Acute) Diastolic CHF (Acute) HLD (hyperlipidemia) (Chronic) HTN (hypertension) (Chronic) PAD (peripheral artery disease) (Chronic) COPD (chronic obstructive pulmonary disease) (Chronic) Tobacco dependence (Chronic) CKD (chronic kidney disease) (Chronic) Leukocytosis (Chronic) Anemia (Chronic) BPH (benign prostatic hyperplasia) (Chronic) Surgical History History of left heart catheterization (Chronic 01/21/11) S/P dialysis catheter insertion (Acute 05/22/18) History of right and left heart catheterization (Chronic 05/24/18) History of thoracentesis (Acute 05/22/18) Stented coronary artery (Chronic) 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 2 weeks ago I evaluated him. I felt that he had an adequate left upper arm cephalic vein. I proposed a left upper extremity brachiocephalic arterial venous fistula. He then had vein mapping as noted below. This suggested that his veins were very diminutive. - 08/03/18 [facility] [address] [place] [address] Saphenous Vein Mapping, Bilat 08/03/18 1009 MR#: [id number]:[id number] Name: ANGELINA GIMENEZ Jr.Rep #:[id number] : 1950 67From: Katherine Lua MD Attending Dr: Stoney MONTENEGRO,RobertStatus: REG CLI Ordering Dr: Katherine Lua MDDate: 08/03/18 Location:CVSSex: Admitted: Reason For Study: T82.59 mechanical complication Right Arm Left Arm Right cephalic vein is compressible. Left cephalic vein is compressible. Right Cephalic Vein at the shoulder Left Cephalic Vein at the shoulder measures .104 x .108 cm. measures .104 x .088 cm. Right Cephalic Vein mid bicep measures .084 Left Cephalic Vein at mid bicep x .092 cm. measures .104 x .087 cm. Right Cephalic Vein above antecub Left Cephalic Vein above antecub measures .108 x .116 cm. measures .154 x .146 cm. Right Cephalic Vein below antecub Left Cephalic Vein below antecub measures .091 x .100 cm. measures .104 x .112 cm. Right Cephalic Vein in the forearm Left Cephalic Vein in the forearm measures .083 x .084 cm. measures .104 x .100 cm. Right Cephalic Vein at the wrist Left Cephalic Vein at the wrist measures .046 x .042 cm. measures .092 x .096 cm. Right basilic vein is compressible. Left basilic vein is compressible. Right Basilic Vein at the origin Basilic vein at origin measures .258 x .275 measures .258 x .266 cm. cm. Right Basilic Vein above antecub measures Basilic vein above antecub measures .275 3.12 x .324 cm. x .283 cm. Right Basilic Vein below antecub Basilic V below this level is too small to measures .137 x .121 cm. assess. Right Basilic Vein in the forearm Brachial A 83.8 cm/s. measures .075 x .079 cm. Brachial A .457 x .474 cm. Right Basilic Vein at the wrist Radial A 58.0 cm/s. measures .058 x .064 cm. Radial A .187 x .208 cm. Brachial A 109 cm/s. Brachial A .528 x .553 cm. Radial A 84.4 cm/s. Radial A .216 x .183 cm. Interpretation Summary Diminutive cephalic veins bilaterally as noted Adequate bilateral upper arm basilic veins Small radial arteries bilaterally Normal flow bilateral brachial arteries. Ordering Physician: Katherine Lua Performed By: Rolando Dao RVT 08/03/181851 Date Katherine Lua MD MR#:[id number]:[id number] Name: ANGELINA GIMENEZ Jr.Rep #:[id number] : 1950 Provider:Katherine Lua MD Age/Sex: 67/M Location:[facility] Status:Signed Intake Vital Signs 07/25/18 Height 5 ft 8 in 07/25/18 Weight: 175 lb 4 oz 07/25/18 Body Mass Index (BMI) 26.6 07/25/18 Blood Pressure 136/63 H 07/25/18 Blood Pressure Location Lt brachial 07/25/18 Blood Pressure Position Sitting 07/25/18 Respiratory Rate 22 H 07/25/18 Pulse Rate 66 07/25/18 Pulse Ox 95 Intake Visit Reasons: Carotid Stenosis/US [facility] 07/11 Chief Complaint: bilateral carotid stenosis In Home Aide Required: No Is patient in pain?: No Allergies irbesartan [From Avapro] Adverse Reaction (Severe, Verified 07/25/18 13:24) Blisters zolpidem [From Ambien] Adverse Reaction (Severe, Verified 07/25/18 13:24) made me go crazy, memory loss Medications Ropinirole HCl [Requip] 1 mg PO QHS 01/28/18 [History Confirmed 07/25/18] Rosuvastatin Calcium [Crestor] 40 mg PO QHS 01/28/18 [History Confirmed 07/25/18] Finasteride [Proscar] 5 mg PO DAILY 04/08/18 [History Confirmed 07/25/18] Albuterol Aerosols [Ventolin Aerosols] 2.5 mg INHALATION Q4H PRN 05/10/18 [History Confirmed 07/25/18] Amlodipine [Norvasc] 10 mg PO DAILY 05/10/18 [History Confirmed 07/25/18] Carvedilol [Coreg (Beta Lesa)] 25 mg PO BID #60 tab 05/13/18 [Rx Confirmed 07/25/18] Aspirin E.C. [Ecotrin] 81 mg PO DAILY@0800 tab 05/25/18 [Rx Confirmed 07/25/18] Clopidogrel Bisulfate [Plavix] 75 mg PO DAILY #1 tab 05/25/18 [Rx Confirmed 07/25/18] Isosorbide Mononitrate [Imdur] 30 mg PO DAILY #30 tab 05/26/18 [Rx Confirmed 07/25/18] bumetanide 2 mg tablet 2 mg PO BID tab 06/29/18 [History Confirmed 07/25/18] Metolazone [Zaroxolyn] 1 tab PO DAILY PRN 07/05/18 [History Confirmed 07/25/18] Lactulose 15 ml PO DAILY PRN 07/23/18 [History Confirmed 07/25/18] Potassium Chloride 10 meq PO DAILY PRN 07/23/18 [History Confirmed 07/25/18] Potassium Chloride [Klor-Con] 20 meq PO QHS 07/23/18 [History Confirmed 07/25/18] Ferrous Sulfate 325 mg PO BIDCM #60 tab 07/25/18 [Rx Confirmed 07/25/18] Levofloxacin [Levaquin] 500 mg PO Q48H #4 tab 07/25/18 [Rx Confirmed 07/25/18] Nepro Liquid [Nepro Carb Steady] 120 ml PO 4X/DAY #1 bottle 07/25/18 [Rx Confirmed 07/25/18] Tamsulosin HCl [Flomax] 0.4 mg PO DAILY@1730 #30 cap 07/25/18 [Rx Confirmed 07/25/18] PFSH Medical History History of non-ST elevation myocardial infarction (NSTEMI) (Chronic 01/21/11) Atherosclerotic heart disease of [place] coronary artery without angina pectoris (Chronic) Acute renal failure superimposed on chronic kidney disease (Acute) Diastolic CHF (Acute) HLD (hyperlipidemia) (Chronic) HTN (hypertension) (Chronic) PAD (peripheral artery disease) (Chronic) COPD (chronic obstructive pulmonary disease) (Chronic) Tobacco dependence (Chronic) CKD (chronic kidney disease) (Chronic) Leukocytosis (Chronic) Anemia (Chronic) BPH (benign prostatic hyperplasia) (Chronic) Surgical History History of left heart catheterization (Chronic 01/21/11) S/P dialysis catheter insertion (Acute 05/22/18) History of right and left heart catheterization (Chronic 05/24/18) History of thoracentesis (Acute 05/22/18) Stented coronary artery (Chronic) 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 67-year-old gentleman. He is literally is discharged from the [facility] just today. He was admitted with acute diastolic congestive heart failure and history of non-ST segment elevation SC history of coronary bypass surgery history innumerable coronary stents hypertension and peripheral arterial occlusive disease bilateral extracranial carotid artery occlusive disease ongoing tobacco dependence. The patient claims that an additional diagnosis during his hospitalization was bilateral pneumonia. It was on July 23 that he presented to the emergency room complaining of shortness of breath. His chest x-ray showed interval development of bilateral effusions and pulmonary edema and cardiomegaly. The patient is reasonably adamant at this time that the majority of his shortness of breath was bilateral pneumonia. He has indwelling right internal jugular tunneled dialysis catheters. He was hospitalized he believes May 2018 urgently and had the catheters placed. He is on dialysis for a period of time. Dr. Alaniz was then able to temporarily stop the dialysis but then the patient as noted he was readmitted with a 4 pound weight gain and is now back on dialysis. In the midst of all of this on July 11, 2018 the patient had carotid duplex imaging. Peak systolic velocity of the right internal carotid is 227 cm/s with end-diastolic flow 42. Peak systolic velocity of the left internal carotid was 221 cm second peak systolic flow with an end-diastolic velocity of 40. This was felt to be consistent with greater than 70% stenosis bilaterally. It was noted that a previous examination done all the way back in 2008 suggested progression of disease since that time. The patient claims to have had a remote history of stroke but he is vague about the symptoms. He has not had current symptomatology. It is of note that although he was just discharged from the [facility] he did immediately resume cigarette smoking even prior to this appointment. He tells me that his doctors instructed him that they wanted him to continue smoking at a low rate. The patient is right arm dominant. He has not had venous duplex mapping of his upper extremities. Asked to see this patient both by Dr. Chepe Barrientos and Dr. Alaniz for surgical consultation and written copy of my surgical consult will be returned to the ROS General General: Yes weight change and fatigue; no appetite, colon cancer, breast cancer or weakness HEENT HEENT: No difficulty swallowing, eye injury, eye surgery, swollen glands or hoarseness Endo Endocrine: No thyroid disease, diabetes mellitus, thyroid cancer, Hair loss, heat intolerance or cold intolerance Musc Musculoskeletal: Yes arthritis; no back problems, rheumatoid arthritis, gout or joint pain Cardio Cardiovascular: Yes heart disease, high blood pressure, heart attack and heart stent; no murmur, pacemaker, atrial fibrillation, palpitations, shortness of breat with exertion or chest pain Additional Details: 13 heart stents, CABG Psych Psychiatric: Yes anxiety; no depression or hearing voices Resp Respiratory: Yes shortness of breath, No sleep apnea, Yes cough, Yes COPD, No asthma, No emphysema, No wheezing Gastro Gastrointestinal: No abdominal pain, No nausea or vomiting, No diarrhea, Yes constipation, No blood in stool, No acid reflux, No hemorrhoids, No ulcers, No gallbladder problem, No black,tarry stools Fernando Hematologic: Yes blood thinners, No blood disorders, No bleeding, Yes anemia, No blood clots Neuro Neurologic: No weakness Exam Const General: cooperative, frail appearing, ill appearing Nutritional Appearance: average body habitus Orientation: alert, awake Other: Notable odor of tobacco HENMT Other: Cervical kyphosis noted Chest Other: Notably increased anterior posterior diameter Resp Other: Poor respiratory excursion. Scattered bibasilar rales. Cardio Rate: regular rate Rhythm: regular rhythm Heart Sounds: no murmurs GI Auscultation: normal bowel sounds Other: Bulbous and protuberant, suggestion of fluid wave Skin Other: Multiple areas of ecchymosis bilateral upper extremities with multiple small dressings Neuro Other: Patient is alert and aware of his situation and place Extrem Other: Right radial artery is 2+ right brachial artery 3+ and right carotid 2+ Left radial artery is 1+ left brachial artery 3+ left carotid 2+ I am not able to detect carotid bruit Psych Judgment: fair Assessment AND Plan Problems 1. Stage 5 chronic kidney disease on chronic dialysis N18.6; Z99.2 2. Tobacco dependence F17.200 Plan 67-year-old gentleman. He is now back on hemodialysis via tunneled right internal jugular dialysis catheters. I am proposing for him creation of an arteriovenous fistula for chronic hemodialysis and a great discussion with the patient's present I discussed technique, benefits, risks and alternatives. I am suggesting that he will benefit from a left upper extremity brachiocephalic arteriovenous fistula. I will want to confirm with duplex vein mapping. In great detail he is aware of the technique, benefits, risks, alternatives. He is aware that there are no guarantees of success. He is aware that a fistula requires maturation. I have vigorously educated the patient that it is critically important to establish a fistula to allow for removal of his tunneled dialysis catheters which are placing him at risk I have vigorously encouraged the patient to stop her tobacco use. He is suggesting me that other physicians have encouraged him to continue smoking. I have suggested to him that I find that hard to believe and that I believe that is extraordinarily important for him to stop There is a brief comment to my nursing regarding peritoneal dialysis. I do not believe that the patient would be a candidate for that. He already has an abdomen that appears to have ascites. He would not likely will tolerate a general anesthetic He currently has asymptomatic bilateral extrarenal 70% carotid artery disease. I do not believe that he is a good interventional candidate either with carotid endarterectomy or carotid artery stenting. I have vigorously encouraged the patient that he needs to participate in maximization of his medical care. This would include diet and fluid intake and hypertension management and chronic kidney failure management and pulmonary management and cessation of tobacco etc. at this point I recommend follow-up carotid duplex imaging at 6 months. I appreciate the opportunity of assisting with surgical care. Vein mapping and then subsequent left obstructive brachiocephalic venous fistula creation is anticipated CC: and Dr Wong Berger and Dr Chepe Lua M.D., F.A.C.S. Exam Extrem Other: Repeat inspection of the left upper arm cephalic vein on my ultrasound inspection with the patient sitting in the arm hanging dependently demonstrates an adequate cephalic vein at the antecubital space. It does become diminutive in the upper arm 2 mm but appears to be patent and compressible throughout. Assessment AND Plan Problems 1. DAI (acute kidney injury) N17.9 Plan Upon reviewing the patient's situation his bilateral forearm cephalic veins are diminutive. Bilateral upper arm cephalic veins are borderline at best. Bilateral upper arm basilic veins are borderline. On my review believe that it is very reasonable to attempt a left upper arm brachiocephalic AV fistula creation. I believe that the vein has a good chance to mature under arterial pressure. I discussed with him the technique, benefits, risks, alternatives. No guarantees of success have been offered. It would seem reasonable to attempt this because of that is not feasible then my secondary recommendation would be a staged left upper extremity brachiobasilic AV fistula which would then require second procedure for transposition. The patient is clearly at increased operative risk secondary to his medical comorbidities. We will have him hold his Plavix just one day preoperatively. The patient has had an opportunity to ask and have questions answered. I anticipate proceeding with monitored anesthesia care and local anesthetic. Katherine Lua M.D., F.A.C.S. Coding Level of Care Code Off vis,est,level 2 Diagnoses DAI (acute kidney injury) N17.9 08/17/18 1052 <Electronically signed by Katherine Lua MD> Date Katherine Lua MD Cosigner Signature: Date (if applicable) CC: SEUN Berger; Augusto Alaniz M.D. VENOUS DUPLEX UPPER Observed: 08/03/2018 Status: F Source: [place] [facility] Cardiovascular Services [address] [place] [address] Saphenous Vein Mapping, Bilat 08/03/18 1009 MR#: [id number] Acct: [id number] Name: ANGELINA GIMENEZ Jr. Rep #: [id number] : 1950 67 From: Katherine Lua MD Attending Dr: Katherine Lua MD Status: REG CLI Ordering Dr: Katherine Lua MD Date: 08/03/18 Location: [facility] Sex: M C Admitted: Reason For Study: T82.59 mechanical complication Right Arm Left Arm Right cephalic vein is compressible. Left cephalic vein is compressible. Right Cephalic Vein at the shoulder Left Cephalic Vein at the shoulder measures .104 x .108 cm. measures .104 x .088 cm. Right Cephalic Vein mid bicep measures .084 Left Cephalic Vein at mid bicep x .092 cm. measures .104 x .087 cm. Right Cephalic Vein above antecub Left Cephalic Vein above antecub measures .108 x .116 cm. measures .154 x .146 cm. Right Cephalic Vein below antecub Left Cephalic Vein below antecub measures .091 x .100 cm. measures .104 x .112 cm. Right Cephalic Vein in the forearm Left Cephalic Vein in the forearm measures .083 x .084 cm. measures .104 x .100 cm. Right Cephalic Vein at the wrist Left Cephalic Vein at the wrist measures .046 x .042 cm. measures .092 x .096 cm. Right basilic vein is compressible. Left basilic vein is compressible. Right Basilic Vein at the origin Basilic vein at origin measures .258 x .275 measures .258 x .266 cm. cm. Right Basilic Vein above antecub measures Basilic vein above antecub measures .275 3.12 x .324 cm. x .283 cm. Right Basilic Vein below antecub Basilic V below this level is too small to measures .137 x .121 cm. assess. Right Basilic Vein in the forearm Brachial A 83.8 cm/s. measures .075 x .079 cm. Brachial A .457 x .474 cm. Right Basilic Vein at the wrist Radial A 58.0 cm/s. measures .058 x .064 cm. Radial A .187 x .208 cm. Brachial A 109 cm/s. Brachial A .528 x .553 cm. Radial A 84.4 cm/s. Radial A .216 x .183 cm. Interpretation Summary Diminutive cephalic veins bilaterally as noted Adequate bilateral upper arm basilic veins Small radial arteries bilaterally Normal flow bilateral brachial arteries. Ordering Physician: Katherine Lua Performed By: Rolando Dao, RVT 08/03/181851 Date Katherine Lua MD CC: SEUN Berger; Katherine Lua MD Date Dictated: 08/03/181008 Date Transcribed: 08/03/181851 Specialty Manufacturing Supervisor: Signed SURGERY VISIT REPORT Observed: 07/25/2018 Status: F Source: [place] 2:52 PM [facility] REPOSITORY [facility] [address] [place] [address] [address] [place] [address] OFFICE VISIT Date of Service: 07/25/18 MR#: [id number] Acct: [id number] Name: ANGELINA GIMENEZ Jr. Rep #: [id number] : 1950 Provider: Katherine Lua MD Age/Sex: 67/M Location: [facility] Status: Signed Intake Vital Signs07/25/18 Height 5 ft 8 in 07/25/18 Weight: 175 lb 4 oz 07/25/18 Body Mass Index (BMI) 26.6 07/25/18 Blood Pressure 136/63 H Intake Visit Reasons: Carotid Stenosis/US [facility] 07/11 Chief Complaint: bilateral carotid stenosis In Home Aide Required: No Is patient in pain?: No Allergies irbesartan [From Avapro] Adverse Reaction (Severe, Verified 07/25/18 13:24) Blisters zolpidem [From Ambien] Adverse Reaction (Severe, Verified 07/25/18 13:24) made me go crazy, memory loss Medications Ropinirole HCl [Requip] 1 mg PO QHS 01/28/18 [History Confirmed 07/25/18] Rosuvastatin Calcium [Crestor] 40 mg PO QHS 01/28/18 [History Confirmed 07/25/18] Finasteride [Proscar] 5 mg PO DAILY 04/08/18 [History Confirmed 07/25/18] Albuterol Aerosols [Ventolin Aerosols] 2.5 mg INHALATION Q4H PRN 05/10/18 [History Confirmed 07/25/18] Amlodipine [Norvasc] 10 mg PO DAILY 05/10/18 [History Confirmed 07/25/18] Carvedilol [Coreg (Beta Lesa)] 25 mg PO BID #60 tab 05/13/18 [Rx Confirmed 07/25/18] Aspirin E.C. [Ecotrin] 81 mg PO DAILY@0800 tab 05/25/18 [Rx Confirmed 07/25/18] Clopidogrel Bisulfate [Plavix] 75 mg PO DAILY #1 tab 05/25/18 [Rx Confirmed 07/25/18] Isosorbide Mononitrate [Imdur] 30 mg PO DAILY #30 tab 05/26/18 [Rx Confirmed 07/25/18] bumetanide 2 mg tablet 2 mg PO BID tab 06/29/18 [History Confirmed 07/25/18] Metolazone [Zaroxolyn] 1 tab PO DAILY PRN 07/05/18 [History Confirmed 07/25/18] Lactulose 15 ml PO DAILY PRN 07/23/18 [History Confirmed 07/25/18] Potassium Chloride 10 meq PO DAILY PRN 07/23/18 [History Confirmed 07/25/18] Potassium Chloride [Klor-Con] 20 meq PO QHS 07/23/18 [History Confirmed 07/25/18] Ferrous Sulfate 325 mg PO BIDCM #60 tab 07/25/18 [Rx Confirmed 07/25/18] Levofloxacin [Levaquin] 500 mg PO Q48H #4 tab 07/25/18 [Rx Confirmed 07/25/18] Nepro Liquid [Nepro Carb Steady] 120 ml PO 4X/DAY #1 bottle 07/25/18 [Rx Confirmed 07/25/18] Tamsulosin HCl [Flomax] 0.4 mg PO DAILY@1730 #30 cap 07/25/18 [Rx Confirmed 07/25/18] PFSH Medical History History of non-ST elevation myocardial infarction (NSTEMI) (Chronic 01/21/11) Atherosclerotic heart disease of [place] coronary artery without angina pectoris (Chronic) Acute renal failure superimposed on chronic kidney disease (Acute) Diastolic CHF (Acute) HLD (hyperlipidemia) (Chronic) HTN (hypertension) (Chronic) PAD (peripheral artery disease) (Chronic) COPD (chronic obstructive pulmonary disease) (Chronic) Tobacco dependence (Chronic) CKD (chronic kidney disease) (Chronic) Leukocytosis (Chronic) Anemia (Chronic) BPH (benign prostatic hyperplasia) (Chronic) Surgical History History of left heart catheterization (Chronic 01/21/11) S/P dialysis catheter insertion (Acute 05/22/18) History of right and left heart catheterization (Chronic 05/24/18) History of thoracentesis (Acute 05/22/18) Stented coronary artery (Chronic) 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 67-year-old gentleman. He is literally is discharged from the [facility] just today. He was admitted with acute diastolic congestive heart failure and history of non-ST segment elevation SC history of coronary bypass surgery history innumerable coronary stents hypertension and peripheral arterial occlusive disease bilateral extracranial carotid artery occlusive disease ongoing tobacco dependence. The patient claims that an additional diagnosis during his hospitalization was bilateral pneumonia. It was on July 23 that he presented to the emergency room complaining of shortness of breath. His chest x-ray showed interval development of bilateral effusions and pulmonary edema and cardiomegaly. The patient is reasonably adamant at this time that the majority of his shortness of breath was bilateral pneumonia. He has indwelling right internal jugular tunneled dialysis catheters. He was hospitalized he believes May 2018 urgently and had the catheters placed. He is on dialysis for a period of time. Dr. Alaniz was then able to temporarily stop the dialysis but then the patient as noted he was readmitted with a 4 pound weight gain and is now back on dialysis. In the midst of all of this on July 11, 2018 the patient had carotid duplex imaging. Peak systolic velocity of the right internal carotid is 227 cm/s with end-diastolic flow 42. Peak systolic velocity of the left internal carotid was 221 cm second peak systolic flow with an end-diastolic velocity of 40. This was felt to be consistent with greater than 70% stenosis bilaterally. It was noted that a previous examination done all the way back in 2008 suggested progression of disease since that time. The patient claims to have had a remote history of stroke but he is vague about the symptoms. He has not had current symptomatology. It is of note that although he was just discharged from the [facility] he did immediately resume cigarette smoking even prior to this appointment. He tells me that his doctors instructed him that they wanted him to continue smoking at a low rate. The patient is right arm dominant. He has not had venous duplex mapping of his upper extremities. Asked to see this patient both by Dr. Chepe Barrientos and Dr. Alaniz for surgical consultation and written copy of my surgical consult will be returned to the [facility] General General: Yes weight change and fatigue; no appetite, colon cancer, breast cancer or weakness HEENT HEENT: No difficulty swallowing, eye injury, eye surgery, swollen glands or hoarseness Endo Endocrine: No thyroid disease, diabetes mellitus, thyroid cancer, Hair loss, heat intolerance or cold intolerance Musc Musculoskeletal: Yes arthritis; no back problems, rheumatoid arthritis, gout or joint pain Cardio Cardiovascular: Yes heart disease, high blood pressure, heart attack and heart stent; no murmur, pacemaker, atrial fibrillation, palpitations, shortness of breat with exertion or chest pain Additional Details: 13 heart stents, CABG Psych Psychiatric: Yes anxiety; no depression or hearing voices Resp Respiratory: Yes shortness of breath, No sleep apnea, Yes cough, Yes COPD, No asthma, No emphysema, No wheezing Gastro Gastrointestinal: No abdominal pain, No nausea or vomiting, No diarrhea, Yes constipation, No blood in stool, No acid reflux, No hemorrhoids, No ulcers, No gallbladder problem, No black,tarry stools Fernando Hematologic: Yes blood thinners, No blood disorders, No bleeding, Yes anemia, No blood clots Neuro Neurologic: No weakness Exam Const General: cooperative, frail appearing, ill appearing Nutritional Appearance: average body habitus Orientation: alert, awake Other: Notable odor of tobacco HENMT Other: Cervical kyphosis noted Chest Other: Notably increased anterior posterior diameter Resp Other: Poor respiratory excursion. Scattered bibasilar rales. Cardio Rate: regular rate Rhythm: regular rhythm Heart Sounds: no murmurs GI Auscultation: normal bowel sounds Other: Bulbous and protuberant, suggestion of fluid wave Skin Other: Multiple areas of ecchymosis bilateral upper extremities with multiple small dressings Neuro Other: Patient is alert and aware of his situation and place Extrem Other: Right radial artery is 2+ right brachial artery 3+ and right carotid 2+ Left radial artery is 1+ left brachial artery 3+ left carotid 2+ I am not able to detect carotid bruit Psych Judgment: fair Assessment AND Plan Problems 1. Stage 5 chronic kidney disease on chronic dialysis N18.6; Z99.2 2. Tobacco dependence F17.200 Plan 67-year-old gentleman. He is now back on hemodialysis via tunneled right internal jugular dialysis catheters. I am proposing for him creation of an arteriovenous fistula for chronic hemodialysis and a great discussion with the patient's present I discussed technique, benefits, risks and alternatives. I am suggesting that he will benefit from a left upper extremity brachiocephalic arteriovenous fistula. I will want to confirm with duplex vein mapping. In great detail he is aware of the technique, benefits, risks, alternatives. He is aware that there are no guarantees of success. He is aware that a fistula requires maturation. I have vigorously educated the patient that it is critically important to establish a fistula to allow for removal of his tunneled dialysis catheters which are placing him at risk I have vigorously encouraged the patient to stop her tobacco use. He is suggesting me that other physicians have encouraged him to continue smoking. I have suggested to him that I find that hard to believe and that I believe that is extraordinarily important for him to stop There is a brief comment to my nursing regarding peritoneal dialysis. I do not believe that the patient would be a candidate for that. He already has an abdomen that appears to have ascites. He would not likely will tolerate a general anesthetic He currently has asymptomatic bilateral extrarenal 70% carotid artery disease. I do not believe that he is a good interventional candidate either with carotid endarterectomy or carotid artery stenting. I have vigorously encouraged the patient that he needs to participate in maximization of his medical care. This would include diet and fluid intake and hypertension management and chronic kidney failure management and pulmonary management and cessation of tobacco etc. at this point I recommend follow-up carotid duplex imaging at 6 months. I appreciate the opportunity of assisting with surgical care. Vein mapping and then subsequent left obstructive brachiocephalic venous fistula creation is anticipated CC: and Dr Wong Berger and Dr Chepe Lua M.D., F.A.C.S. Orders Orders: Coding Level of Care Code Comprehensive,moderate Diagnoses Stage 5 chronic kidney disease on chronic dialysis N18.6; Z99.2 Chronic kidney disease stage: on chronic dialysis Tobacco dependence F17.200 07/25/18 1452 <Electronically signed by Katherine Lua MD> Date Katherine Lua MD Cosigner Signature: Date (if applicable) CC: SEUN Berger; Chepe Barrientos MD; Augusto Alaniz M.D. DISCHARGE SUMMARY Observed: 07/25/2018 Status: F Source: [place] 2:29 PM [facility] REPOSITORY [facility] Medical Records Department [address] [place] [address] Discharge Summary 07/25/18 1401 MR#: [id number] Acct: [id number] Name: ANGELINA GIMENEZ Jr. Rep #: [id number] : 1950 67 From: Itz FELIPE PCP: SEUN Poe Status: DIS IN Y Location: [facility] [id number] <Itz Bennett - Last Filed: 07/25/18 14:01> Discharge Date and Diagnosis Date of Admission: 07/23/18 Date of Discharge: 07/25/18 - Primary Discharge Diagnosis Acute hypoxic respiratory failure secondary to acute diastolic congestive heart failure exacerbation Acute healthcare associated pneumonia presumed gram-negative Acute kidney injury on CKD stage IV/V CAD history of CABG and stents BPH History of CVA Hypertension Chronic constipation Carotid stenosis Ventral hernia - Secondary Discharge Diagnosis Chronic Problems (Last Reviewed 07/25/18 @ 13:23 by Kamilah White) History of non-ST elevation myocardial infarction (NSTEMI) (Chronic 01/21/11) History of left heart catheterization (Chronic 01/21/11) 10/13/[address] Barrientos @ [facility]:Per Dr. Jiménez @ [facility]: CABG recommended History of right and left heart catheterization (Chronic 05/24/18) Patent NICHOLAS to LAD, SVG to 1st OM and SVG to RCA. Elevated right heart pressures, significant Diastolic dysfunction per cath done @ [facility], Dr. Barrientos Stented coronary artery (Chronic) 2003, JASON to circumflex ; 10/13/2009 tsfer from [facility] to [facility], total of 5 bare metal stents to RCA per Dr. Barrientos @ [facility]: 3.5 X 18 Plant Assigner, followed distally by 3.0 X12 Plant Assigner to distal RCA;3.5 X 15 Plant Assigner, followed proximally by 4.0 X 18 Plant Assigner to Mid RCA; 4.0 X 18 Plant Assigner to Proximal RCA S/P CABG x 3 (Chronic 01/26/11) [facility] per Dr. Osito Hernandez: NICHOLAS to LAD, reverse SVG to OMbranch of CX, reverse SVG to PDA of RCA. PDA endarterectomy. Status post peripheral artery angioplasty with insertion of stent (Chronic 2010) Right common iliac, 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 01/31/2011 (critical left main and restenosis of RCA stents) HLD (hyperlipidemia) (Chronic) HTN (hypertension) (Chronic) PAD (peripheral artery disease) (Chronic) COPD (chronic obstructive pulmonary disease) (Chronic) Tobacco dependence (Chronic) CKD (chronic kidney disease) (Chronic) Leukocytosis (Chronic) Anemia (Chronic) BPH (benign prostatic hyperplasia) (Chronic) Hospital Course and Treatment Imaging Results: RAD/Chest 1 View (Portable) IMPRESSION: Findings are suspicious for interval development of bilateral effusions pulmonary edema. Cardiomegaly status post sternotomy. RAD/Chest PA and Lateral IMPRESSION: 1. Right posterior lung base pneumonia, new when compared to 07/23/2018. 2. Clearing of mild pulmonary vascular congestion and bilateral pleural fluid. Consults; [place] - nephrology Operations: None Procedures: None Summary of Care Provided: Physical exam on day of discharge: General: Resting comfortably NAD Psych: A/Ox3 normal affect HEENT: [place] AT NC Neck: Supple NT CV: RRR no m/t/r/g/h Resp:faint crackles bilateral lower noel are posteriorly Abd: [id number] Soft NT no guarding or rigidity Ext: DP2+= 2+ pitting edema bilateral lower extremities Skin: W/D normal turgor Lymph/Heme: No active bleeding or adenopathy Neuro: CN2-12 intact Hospital course: The patient is a 67 year old M with a history of diastolic congestive heart failure with a known EF of 50%, CKD stage IV/V recently discontinued from dialysis, BPH, hypertension, CAD with prior SC, CABG, stents, PAD, carotid artery stenosis with planned outpatient carotid endarterectomy with Dr. Lua, who presented to the emergency room with severe increased shortness of breath, cough, bilateral lower extremity edema, PND, orthopnea found to be in acute congestive heart failure exacerbation after stopping dialysis about a week prior. He did have an elevated white count but did not have any obvious infection at first. He was admitted to the PCU on telemetry and was dialyzed at night. He had significant improvement in shortness of breath and edema, however he continued to have a cough and white count worsened, developed a fever overnight. Follow-up chest x-ray revealed clearing of CHF however underlying pneumonia. Patient was started on Levaquin for healthcare associated pneumonia as he is a dialysis patient. He was kept one more night. He underwent a second round of dialysis with further improvement in his breathing and edema. He had no further fever and his white count improved. The following day he was placed on extended course of Levaquin for pneumonia and advised to continue to be dialyzed on his previous schedule with Dr. Alaniz. He was discharged home in stable condition. Follow-up with PCP in 1-2 weeks, Dr. Alaniz as directed, dialysis tomorrow. At this time his sputum is growing gram-negative rods, follow further cultures. This patient was seen by Itz Bennett PA-C under the supervision of Doctor Fermin. [] Discharge Diet: Low fat/ Low Cholesterol, 2000 mg Sodium Diet Discharge Activity: Return to Normal Activity Home Medications: Medications to take at Discharge Ropinirole HCl [Requip] 1 mg PO QHS 01/28/18 Rosuvastatin Calcium [Crestor] 40 mg PO QHS 01/28/18 Finasteride [Proscar] 5 mg PO DAILY 04/08/18 Albuterol Aerosols [Ventolin Aerosols] 2.5 mg INHALATION Q4H PRN 05/10/18 Amlodipine [Norvasc] 10 mg PO DAILY 05/10/18 Carvedilol [Coreg (Beta Lesa)] 25 mg PO BID #60 tab 05/13/18 Aspirin E.C. [Ecotrin] 81 mg PO DAILY@0800 tab 05/25/18 Clopidogrel Bisulfate [Plavix] 75 mg PO DAILY #1 tab 05/25/18 Isosorbide Mononitrate [Imdur] 30 mg PO DAILY #30 tab 05/26/18 bumetanide 2 mg tablet 2 mg PO BID tab 06/29/18 Metolazone [Zaroxolyn] 1 tab PO DAILY PRN 07/05/18 Lactulose 15 ml PO DAILY PRN 07/23/18 Potassium Chloride 10 meq PO DAILY PRN 07/23/18 Potassium Chloride [Klor-Con] 20 meq PO QHS 07/23/18 Ferrous Sulfate 325 mg PO BIDCM #60 tab 07/25/18 Levofloxacin [Levaquin] 500 mg PO Q48H #4 tab 07/25/18 Nepro Liquid [Nepro Carb Steady] 120 ml PO 4X/DAY #1 bottle 07/25/18 Tamsulosin HCl [Flomax] 0.4 mg PO DAILY@1730 #30 cap 07/25/18 Following Prescrptions Were Given to Patient: Ferrous Sulfate 325 mg PO BIDCM #60 tab Levofloxacin [Levaquin] 500 mg PO Q48H #4 tab Nepro Liquid [Nepro Carb Steady] 120 ml PO 4X/DAY #1 bottle Tamsulosin HCl [Flomax] 0.4 mg PO DAILY@1730 #30 cap Primary Care Physician: Wong Berger NP-C [Primary Care Provider] - Please follow up with your Primary Care Physician in: 1-2 weeks Please Follow Up With: Caleb Alaniz MD When: As directed Please Follow Up With: [facility] When: Tuesday Please Follow Up With: Wong Berger NP-C When: 1-2 weeks Disposition: Home Minutes spent on discharge:: 35 Patient Condition:: Stable Medical Necessity - Tobacco Use Smoking Status: Light Smoker (<10/day) Tobacco Use: Cigarettes Meaningful Use Info Meaningful Use Diagnoses (Choose all that apply): CHF - CHF HEATHER/ARB ordered at discharge?: No Reason HEATHER/ARB not ordered?: Worsening renal disease Documented LVEF (%): 50 <Manoj Christensen - Last Filed: 07/25/18 14:29> Discharge Date and Diagnosis - Secondary Discharge Diagnosis Chronic Problems (Last Reviewed 07/25/18 @ 13:23 by Kamilah White) History of non-ST elevation myocardial infarction (NSTEMI) (Chronic 01/21/11) History of left heart catheterization (Chronic 01/21/11) 10/13/[address] Barrientos @ [facility]:Per Dr. Jiménez @ [facility]: CABG recommended History of right and left heart catheterization (Chronic 05/24/18) Patent NICHOLAS to LAD, SVG to 1st OM and SVG to RCA. Elevated right heart pressures, significant Diastolic dysfunction per cath done @ [facility], Dr. Barrientos Stented coronary artery (Chronic) 2003, JASON to circumflex ; 10/13/2009 tsfer from [facility] to [facility], total of 5 bare metal stents [facility]: 3.5 X 18 Plant Assigner, followed distally by 3.0 X12 Plant Assigner to distal RCA;3.5 X 15 Plant Assigner, followed proximally by 4.0 X 18 Plant Assigner to Mid RCA; 4.0 X 18 Plant Assigner to Proximal RCA S/P CABG x 3 (Chronic 01/26/11) [facility] per Dr. Osito Hernandez: NICHOLAS to LAD, reverse SVG to OMbranch of CX, reverse SVG to PDA of RCA. PDA endarterectomy. Status post peripheral artery angioplasty with insertion of stent (Chronic 2010) Right common iliac, 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 01/31/2011 (critical left main and restenosis of RCA stents) HLD (hyperlipidemia) (Chronic) HTN (hypertension) (Chronic) PAD (peripheral artery disease) (Chronic) COPD (chronic obstructive pulmonary disease) (Chronic) Tobacco dependence (Chronic) CKD (chronic kidney disease) (Chronic) Leukocytosis (Chronic) Anemia (Chronic) BPH (benign prostatic hyperplasia) (Chronic) Hospital Course and Treatment Summary of Care Provided: This patient was seen in conjunction with Itz Bennett PA-C. I have independently interviewed and examined the patient and reviewed pertinent historical, laboratory, and other data. Please refer to Itz Bennett PA-C note for details of this patient's presentation, findings, and recommendations. I have reviewed Itz Bennett PA-C note and concur with documented findings. In brief, pt is a 67-year-old gentleman with history of end- stage renal disease on hemodialysis who was being weaned off dialysis however presented with increasing weight gain as well as generalized edema and assessment of acute diastolic congestive heart failure made admitted to a monitored bed for subsequent management Physical Examination: GENERAL: cooperative HEENT: Atraumatic; EYES; Anicteric, Normal Conjunctiva NECK; supple, normal thyroid, RESPIRATORY: Diminished to auscultation bilaterally, CARDIOVASCULAR: Regular S1 S2, GI: soft, non-tender, normoactive bowel sounds, : No Renal angle tenderness; No charles EXTREMITIES: 2+ pitting edema PSYCH; Normal affect Assessment: 1. Acute hypoxic respiratory failure secondary to CHF 2. Acute diastolic congestive heart failure EF 50% 3. Healthcare associated pneumonia 4. Acute cystitis 5. End-stage renal disease on dialysis 6. CAD with previous SC status post CABG and stent placement 7. Previous history of CVA 8. BPH 9. Carotid artery stenosis 10. Essential hypertension 11. DVT prophylaxis SC heparin Hospital course: As documented above by Itz Bennett Spent on discharge; 35 Code Visit Inpatient E AND M: [id number] Disch Hosp 07/25/18 1408 <Electronically signed by Itz FELIPE> Date Itz FELIPE 07/25/18 1429<Electronically signed by Manoj Christensen MD> Cosigner Signature (if applicable): Date Manoj Christensen MD CC: BARREL LATHE OPERATOR INSIDE-C Wong Berger; MATTEO Bennett; Manoj Christensen MD Signed DISCHARGE INSTRUCTION Observed: 07/25/2018 Status: F Source: [place] 11:13 AM [facility] REPOSITORY [facility] Medical Records Department [address] [place] [id number] Instructions for Home/Discharge Instructions 07/25/18 1111 MR#: [id number] Acct: [id number] Name: ANGELINA GIMENEZ Jr. Rep #: [id number] : 1950 67 From: Itz FELIPE PCP: SEUN Poe Status: ADM IN - Discharge Diagnoses Current Active Problems: Current Active and Chronic Problems (Last Reviewed 07/23/18 @ 17:20 by Chris Stark DO) DAI (acute kidney injury) (Acute) You will use the following diet at home:: Cardiac - <2 g sodium daily Your food should be the consistency of: Regular Your liquids should be the consistency of: Regular/Thin Discharge Activity: Return to Normal Activity Allergies/Adverse Reactions: Allergies irbesartan [From Avapro] Adverse Reaction (Severe, Verified 07/23/18 14:43) Blisters zolpidem [From Ambien] Adverse Reaction (Severe, Verified 07/23/18 14:43) made me go crazy, memory loss Medications to take at Discharge Ropinirole HCl [Requip] 1 mg PO QHS 01/28/18 Rosuvastatin Calcium [Crestor] 40 mg PO QHS 01/28/18 Finasteride [Proscar] 5 mg PO DAILY 04/08/18 Albuterol Aerosols [Ventolin Aerosols] 2.5 mg INHALATION Q4H PRN 05/10/18 Amlodipine [Norvasc] 10 mg PO DAILY 05/10/18 Carvedilol [Coreg (Beta Lesa)] 25 mg PO BID #60 tab 05/13/18 Aspirin E.C. [Ecotrin] 81 mg PO DAILY@0800 tab 05/25/18 Clopidogrel Bisulfate [Plavix] 75 mg PO DAILY #1 tab 05/25/18 Isosorbide Mononitrate [Imdur] 30 mg PO DAILY #30 tab 05/26/18 bumetanide 2 mg tablet 2 mg PO BID tab 06/29/18 Metolazone [Zaroxolyn] 1 tab PO DAILY PRN 07/05/18 Lactulose 15 ml PO DAILY PRN 07/23/18 Potassium Chloride 10 meq PO DAILY PRN 07/23/18 Potassium Chloride [Klor-Con] 20 meq PO QHS 07/23/18 Ferrous Sulfate 325 mg PO BIDCM #60 tablet 07/25/18 Levofloxacin [Levaquin] 500 mg PO Q48H #4 tablet 07/25/18 Nepro Liquid [Nepro Carb Steady] 120 ml PO 4X/DAY #1 bottle 07/25/18 Tamsulosin HCl [Flomax] 0.4 mg PO DAILY@1730 #30 capsule 07/25/18 The following prescriptions were given: Ferrous Sulfate 325 mg PO BIDCM #60 tablet Levofloxacin [Levaquin] 500 mg PO Q48H #4 tablet Nepro Liquid [Nepro Carb Steady] 120 ml PO 4X/DAY #1 bottle Tamsulosin HCl [Flomax] 0.4 mg PO DAILY@1730 #30 capsule Primary Care Physician: Wong Berger NP-C [Primary Care Provider] - Please follow up with your Primary Care Physician in: 1-2 weeks Test Results: Test results from this visit will be discussed in further detail at your follow-up appointment, if applicable. Please Follow Up With: Caleb Alaniz MD - Nephrology When: As directed Please Follow Up With: [facility] - Dialysis When: Tuesday Proposed Discharge Date: 07/26/18 07/25/18 1113 <Electronically signed by Itz FELIPE> Date Itz FELIPE CC: SEUN Berger; Caleb Ogden MD CBC W/DIFF, AUTOMATED Collected: 07/25/2018 Status: F Source: [place] 6:14 AM [facility] REPOSITORY TYPE CODE TESTS RESULT OUT OF RANGE REFERENCE UNITS LAB L100.1000 4.4-11.0 K/mm3 High WBC 12.7 LAB L100.1200 4.6-6.2 M/mm3 Low RBC 3.27 LAB L100.1300 13.0-16.5 g/dl Low HGB 10.0 LAB L100.1400 40-54 % Low HCT 31.5 LAB L100.1500 80-94 fL High MCV 96.3 LAB L100.1600 27.0-32.0 pg Normal MCH 30.6 LAB L100.1700 32-36 g/gl Low MCHC 31.7 LAB L100.1810 11.6-14.6 % High RDW CV 15.0 LAB L100.1820 35.1-43.9 fl High RDW SD 50.1 LAB L100.1900 150-450 K/mm3 Normal PLT 178 LAB L100.2000 6.2-12.0 fl Normal MPV 10.6 LAB L100.2100 47-70 % High NEUT% 82.4 LAB L100.2200 19-41 % Low LY% 8.1 LAB L100.2300 0-10 % Normal MONO% 8.7 LAB L100.2400 0-5 % Normal EO% 0.4 LAB L100.2500 0-1 % Normal BASO% 0.1 LAB L100.2550 0.0-0.9 % Normal IM GRAN % 0.300 Result Comment: IG% - Immature Granulocytes (promyelocytes, myelocytes and metamyelocytes) > 1% indicates that a LEFT SHIFT is Present. LAB L100.2620 2.0-7.7 X10 3/uL High Absolute Neut 10.4 LAB L100.2720 0.83-4.51 X10 3/ul Normal Absolute Lymph 1.03 Performed By: #### L100.0100 #### [facility] [address] [place], [address] BASIC METABOLIC Collected: 07/25/2018 Status: F Source: [place] PROFILE (BMP) 6:14 AM [facility] REPOSITORY TYPE CODE TESTS RESULT OUT OF RANGE REFERENCE UNITS LAB L501.0100 74-106 mg/dL High GLU 113 Result Comment: Fasting Glucose result from 100 to 125 mg/dL suggests IMPAIRED HOMEOSTASIS per A.D.A. criteria. Please note revised GLUCOSE reference range effective 2017. LAB L501.1000 7-18 mg/dL High BUN 50 LAB L501.1100 0.70-1.30 mg/dL High CREAT,SERUM 2.64 Result Comment: The validity of the calculated GFR AND GFRAA in patients over 70 years has not been determined. Clinical correlation is essential. LAB L501.1110 >60 mL/min Low EST GFR 26 Result Comment: Non- GFR Calc LAB L501.1115 >60 mL/min Low EST GFR - AA 31 Result Comment: GFR Calc LAB L501.1255 ml/min Normal Estimated CRCL 26.63 LAB L501.1300 10-20 RATIO Normal BUN/CRE 18.9 LAB L501.2200 8.5-10 mg/dL Normal .1 CA 8.6 LAB L501.5300 136-14 mmol/L Low 5 NA 133 LAB L501.5600 3.5-5. mmol/L Normal 1 K 4.3 LAB L501.5900 98-107 mmol/L Low CL 97 LAB L501.6100 21.0-3 mmol/L Normal 2.0 CO2 26.0 LAB L501.6200 5-15 Normal GAP 10 Performed By: #### L500.2500 #### [facility] [address] [place], [place], [address] HEPATITIS B SURFACE Collected: 07/24/2018 Status: F Source: [place] AG 4:50 PM [facility] REPOSITORY TYPE CODE TESTS RESULT OUT OF RANGE REFERENCE UNITS LAB L3100.0400 Negative Normal HB Negative SURF AG Performed By: #### L3100.0390, L3100.0420, L3100.0460 #### [facility] (refer to report for specific site) refer to report for address and phone number HEPATITIS BE AG Collected: 07/24/2018 Status: F Source: [place] 4:50 PM [facility] REPOSITORY TYPE CODE TESTS RESULT OUT OF RANGE REFERENCE UNITS LAB L3100.0420 Negative Normal HEP Negative Be AG 6619 Performed By: #### L3100.0390, L3100.0420, L3100.0460 #### [facility] (refer to report for specific site) refer to report for address and phone number HEPATITIS B CORE AB Collected: 07/24/2018 Status: F Source: [place] TOTAL 4:50 PM [facility] REPOSITORY TYPE CODE TESTS RESULT OUT OF RANGE REFERENCE UNITS LAB L3100.0460 Negative Normal HEP B Negative CORE,TOT Result Comment: Performed at: - [facility] [id number] Laundry Housekeeper: Erlin Palomo PhD, Phone: [phone] Performed By: #### L3100.0390, L3100.0420, L3100.0460 #### [facility] (refer to report for specific site) refer to report for address and phone number Observed: 07/24/2018 Status: F Source: [place] CULTURE, SPUTUM 2:30 PM [facility] REPOSITORY Gram Stain Acceptable Specimen? Yes (<25 Epithelial cells per/lpf) Gram Stain 2+ Gram positive cocci 1+ White Blood Cells Rare Gram negative rods No Epithelial cells Resp. Culture Mixed normal respiratory jaylen. No Haemophilus, Streptococcus pneumoniae, beta-hemolytic Streptococcus or Staphylococcus aureus isolated. ORGANISM 1: Burkholderia cepacia Amount Growth 1+ Burkholderia cepacia: REACTION Amikacin $ 4 S Aztreonam $$$ 16 I Cefepime $ 2 S Ceftazidime *NF 4 S Ceftriaxone $ >=64 R Ciprofloxacin $ <=0.25 S Gentamicin $ <=1 S Imipenem *NF 1 S Levofloxacin $ <=0.12 S Meropenem $ <=0.25 S Piperacillin/Tazobactam $$ 8 S Tobramycin $ <=1 S Trimethoprim/Sulfametho $ 160 R (NF) indicates non-formulary drug at [facility]. Approval by Infectious Disease Specialist required before non-formulary drugs may be ordered and/or dispensed. Performed By: #### M100.0800 #### [facility] [address] [place], [address] 12 LEAD ELECTROCARDIOGRAM Observed: 07/24/2018 Status: F Source: [place] 2:16 PM [facility] REPOSITORY [facility] Cardiovascular Services [address] [place] [address] 12 Lead EKG 07/23/18 1530 MR#: [id number] Acct: [id number] Name: ANGELINA GIMENEZ Rep #: [id number] : 1950 67 From: Mick Rm MD Attending Dr: Manoj Christensen MD Status: ADM IN Ordering Dr: Andreia Jeffery MD Date: 07/23/18 Location: [facility] Sex: M C Admitted: 07/23/18 Test Reason : DYSRHYTHMIA Blood Pressure : / mmHG Vent. Rate : 069 BPM Atrial Rate : 069 BPM P-R Int : 194 ms QRS Dur : 104 ms QT Int : 456 ms P-R-T Axes : -27 069 125 degrees QTc Int : 488 ms Normal sinus rhythm Left ventricular hypertrophy with repolarization abnormality Prolonged QT Abnormal ECG Confirmed by MICK RM MD ([id number]), medical transcription editor SHIRA HURD ([id number]) on 07/24/2018 2:15:52 PM Referred By: Chepe Barrientos Confirmed By:MICK RM MD 07/24/18 1415 Date Mick Rm MD CC: BARREL LATHE OPERATOR INSIDE-Izabel Berger; Andreia Jeffery MD; Chepe Barrientos MD; Manoj Christensen MD Signed URINALYSIS, COMPLETE Collected: 07/24/2018 Status: F Source: [place] 10:30 AM [facility] REPOSITORY Order Comment: How was Urine Obtained? CLEAN CATCH TYPE CODE TESTS RESULT OUT OF RANGE REFERENCE UNITS LAB L400.3000 Yellow COLOR Normal Yellow LAB L400.3050 Clear Normal CLARITY Sl. Cloudy LAB L400.3200 Normal mg/dl Normal GLUCOSE, UR Normal LAB L400.3300 Negative mg/dL High BILIRUBIN URINE 1 Result Comment: COLOR OF URINE MAY AFFECT DIPSTICK RESULTS. LAB L400.3400 Negative mg/dl Normal KETONE UR Negative LAB L400.3465 1.002-1.030 Normal SP.GR. DIPSTX 1.015 LAB L400.3550 5.0 - 8.0 pH Normal UR 5.0 LAB L400.3600 Negative mg/dl High PROT DIPSTX 30 LAB L400.3700 Normal mg/dl Normal UROBILI Normal LAB L400.3750 Negative Normal NITRITE UR Negative LAB L400.3780 Negative /ul High OCCULT 10 BLOOD-UR LAB L400.3800 Negative /ul High LEUK ESTERASE 100 LAB L400.4050 0-5 /hpf Normal WBC 10-25 SEEN LAB L400.4100 0-5 /hpf Normal RBC-UA 0-5 SEEN LAB L400.4150 0-5 /hpf Normal SQUAM EPI 0-5 SEEN LAB L400.4300 None Seen /hpf Normal BACTERIA 1+ LAB L400.4350 <or=2+ /hpf Normal MUCUS, URINE 0 SEEN LAB L400.4450 0-5 /lpf Normal FINE GRAN CAST 0-5 SEEN Performed By: #### L400.0001 #### [facility] [address] [place], [place], [id number] Observed: 07/24/2018 Status: F Source: [place] LEGIONELLA ANTIGEN 10:30 AM [facility] URINE REPOSITORY Legionella, UR Legionella Antigen result interpretation: Negative Presumptive negative for Legionella pneumophila serogroup 1 antigen in urine, suggesting no recent or current infection. Legionella Ag, Urine Negative (See interpretation below) Performed By: #### M300.4500 #### [facility] [address] [place], [place], [address] STREP Observed: 07/24/2018 Status: F Source: [place] PNEUMONIAE ANTIG(UR,CSF) 10:30 AM [facility] REPOSITORY S pneumo Ag URINE INTERPRETATION Negative Urine Presumptive negative for pneumococcal pneumonia, suggesting no current or recent pneumococcal infection. Infection due to S pneumoniae cannot be ruled out since the antigen present in the sample may be below the detection limit of the test. Strep pneumo Test Negative URINE (See interpretation below) Performed By: #### M300.4600 #### [facility] [address] [place], [address] Observed: 07/24/2018 Status: F Source: [place] CULTURE, URINE 10:30 AM [facility] REPOSITORY Urine Culture ORGANISM 1: Burkholderia cepacia [place] Count >100,000 Burkholderia cepacia: REACTION Amikacin $ 4 S Aztreonam $$$ 8 S Cefepime $ 2 S Ceftazidime *NF 4 S Ceftriaxone $ >=64 R Ciprofloxacin $ <=0.25 S Gentamicin $ 2 S Imipenem *NF 2 S Levofloxacin $ 1 S Meropenem $ 0.5 S Piperacillin/Tazobactam $$ 8 S Tobramycin $ <=1 S Trimethoprim/Sulfametho $ >=320 R (NF) indicates non-formulary drug at [facility]. Approval by Infectious Disease Specialist required before non-formulary drugs may be ordered and/or dispensed. Performed By: #### M100.0650 #### [facility] [address] [place], [address] CONSULTATION Observed: 07/24/2018 Status: F Source: [place] 10:22 AM [facility] REPOSITORY [facility] Medical Records Department [address] [place] [address] Consultation 07/24/18 1007 MR#: [id number] Acct: [id number] Name: ANGELINA GIMENEZ Rep #: [id number] : 1950 67 From: Caleb Alaniz MD PCP: SEUN Poe Status: ADM IN Location: [facility] [id number] Consultation - Renal 07/24/18 PCP/ Referring MD: Requesting physician: Dr Christensen Primary care physician: SEUN Poe Reason for Consultation:: DAI - History of Present Illness History of Present Illness: The patient is a 67 year old M well known to us. He has known history of CHD with diastolic dysfunction, uncontrolled HTN. had frequent hospitalizations in March with fluid overload. had extensive cardiac evaluation which did now show significant findings. has been on dialysis since then. did ok for a while. we advised him to get AVF instead of a catheter. he was very hesitant. In the mean time urine output has improved. 24 hours urine collection for clearance came back at 25. We cut down his schedule to twice a week for 3 weeks with oral diuretics. he managed to not get interdialytic weight gain. was seen in clinic last tuesday and he gained 4 lbs hence I added bumex. apparently he didnt make much urine and had worsening of fluid overload, ended up in ER s/p emergent dialysis yesterday - Allergies Allergies: Allergies irbesartan [From Avapro] Adverse Reaction (Severe, Verified 07/23/18 14:43) Blisters zolpidem [From Ambien] Adverse Reaction (Severe, Verified 07/23/18 14:43) made me go crazy, memory loss - Current Medications Current Medications: Current Medications Acetaminophen (Tylenol) 650 mg PO Q6H PRN PRN PRN Reason: Mild Pain (scale 0-3)/T>100.7 Last Admin: 07/24/18 03:52 Dose: 650 mg Albuterol Sulfate (Ventolin Aerosols) 2.5 mg INHALATION Q4H PRN PRN Reason: SHORTNESS OF BREATH Last Admin: 07/24/18 07:12 Dose: 2.5 mg Albuterol/Ipratropium (Duoneb) 3 ml INHALATION Q6HWA.RT [facility] Amlodipine Besylate (Norvasc) 10 mg PO DAILY [facility] Last Admin: 07/24/18 09:13 Dose: 10 mg Aspirin (Ecotrin) 81 mg PO DAILY@0800 [facility] Last Admin: 07/24/18 09:14 Dose: 81 mg Atorvastatin Calcium (Lipitor) 80 mg PO QHS [facility] Last Admin: 07/23/18 22:21 Dose: 80 mg Carvedilol (Coreg) 25 mg PO BID [facility] Last Admin: 07/24/18 09:13 Dose: 25 mg Clopidogrel Bisulfate (Plavix) 75 mg PO DAILY [facility] Last Admin: 07/24/18 09:13 Dose: 75 mg Ferrous Sulfate (Ferrous Sulfate) 325 mg PO BIDCM [facility] Last Admin: 07/24/18 09:13 Dose: 325 mg Finasteride (Proscar) 5 mg PO DAILY [facility] Last Admin: 07/24/18 09:17 Dose: 5 mg Furosemide (Lasix) 40 mg IV BIDLX [facility] Last Admin: 07/23/18 17:33 Dose: 40 mg Heparin Sodium (Porcine) (Heparin Na) 5,000 unit SC Q12 [facility] Last Admin: 07/24/18 09:12 Dose: 5,000 unit Isosorbide Mononitrate (Imdur) 30 mg PO DAILY [facility] Last Admin: 07/24/18 09:13 Dose: 30 mg Lactulose (Chronulac, Cephulac) 10 gm PO DAILY [facility] Last Admin: 07/24/18 09:16 Dose: 10 gm Magnesium Hydroxide (Milk Of Magnesia) 30 ml PO DAILY PRN PRN Reason: Constipation Metolazone (Zaroxolyn) 5 mg PO DAILY PRN PRN Reason: other Nutritional Formula (Nepro Carb Steady) 120 ml PO 4X/DAY [facility] Last Admin: 07/23/18 22:25 Dose: 120 ml Ondansetron HCl (Zofran) 4 mg IV Q8H PRN PRN PRN Reason: Nausea Potassium Chloride (K-Dur) 10 meq PO DAILY [facility] Last Admin: 07/24/18 09:17 Dose: 10 meq Potassium Chloride (K-Dur) 20 meq PO QHS [facility] Last Admin: 07/23/18 22:22 Dose: 20 meq Potassium Chloride (K-Dur) 10 meq PO DAILY PRN PRN Reason: ON DAYS THAT TAKES METOLAZONE Pramipexole Dihydrochloride (Mirapex) 0.5 mg PO QHS [facility] Last Admin: 07/23/18 22:21 Dose: 0.5 mg Sodium Chloride () 5 - 30 ml IV UD PRN PRN Reason: SALINE FLUSH Last Admin: 07/24/18 09:15 Dose: 10 ml Tamsulosin HCl (Flomax) 0.4 mg PO DAILY@1730 [facility] Last Admin: 07/23/18 18:47 Dose: Not Given - Past Medical History Past Medical History (Chronic Problems): Chronic Problems (Last Reviewed 07/23/18 @ 17:20 by Chris Stark DO) History of non-ST elevation myocardial infarction (NSTEMI) (Chronic 01/21/11) History of left heart catheterization (Chronic 01/21/11) 10/13/[address] Barrientos @ [facility]:Per Dr. Jiménez @ [facility]: CABG recommended History of right and left heart catheterization (Chronic 05/24/18) Patent NICHOLAS to LAD, SVG to 1st OM and SVG to RCA. Elevated right heart pressures, significant Diastolic dysfunction per cath done @ [facility], Dr. Barrientos Stented coronary artery (Chronic) 2003, JASON to circumflex ; 10/13/2009 tsfer from [facility] to [facility], total of 5 bare metal stents to RCA per Dr. Barrientos @ [facility]: 3.5 X 18 Plant Assigner, followed distally by 3.0 X12 Plant Assigner to distal RCA;3.5 X 15 Plant Assigner, followed proximally by 4.0 X 18 Plant Assigner to Mid RCA; 4.0 X 18 Plant Assigner to Proximal RCA S/P CABG x 3 (Chronic 01/26/11) [facility] per Dr. Osito Hernandez: NICHOLAS to LAD, reverse SVG to OMbranch of CX, reverse SVG to PDA of RCA. PDA endarterectomy. Status post peripheral artery angioplasty with insertion of stent (Chronic 2010) Right common iliac, 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 01/31/2011 (critical left main and restenosis of RCA stents) HLD (hyperlipidemia) (Chronic) HTN (hypertension) (Chronic) PAD (peripheral artery disease) (Chronic) COPD (chronic obstructive pulmonary disease) (Chronic) Tobacco dependence (Chronic) CKD (chronic kidney disease) (Chronic) Leukocytosis (Chronic) Anemia (Chronic) BPH (benign prostatic hyperplasia) (Chronic) - Past Surgical History Surgical History: coronary bypass surgery, tonsillectomy - Social History Smoking Status: Light Smoker (<10/day) Alcohol: Occasional Drugs: None - Family History Maternal Family History: Family History (Last Reviewed 07/23/18 @ 17:20 by Chris Stark DO) Other CAD (coronary artery disease) CVA (cerebral vascular accident) Cancer Hypertension History Items: Heart Disease Paternal Family History: Family History (Last Reviewed 07/23/18 @ 17:20 by Chris Stark DO) Other CAD (coronary artery disease) CVA (cerebral vascular accident) Cancer Hypertension History Items: Heart Disease Review of Systems Constitutional: Denies: Chills, Fever, Weight Change HEENT: Denies: Head Aches, Sinus Congestion, Sinus Drainage Cardiovascular: Denies: Chest Pain, Palpitations Respiratory: Denies: Cough, Shortness of breath at rest, Sputum production Gastrointestinal: Denies: Abdominal Pain, Nausea, Vomiting Genitourinary: Denies: Dysuria Musculoskeletal: Denies: Joint Pain, Joint Tenderness Skin: Denies: Rash, Wounds Neurological: Denies: Numbness, Tingling, Focal weakness Psychiatric: Denies: Anxiety, Depression, Homicidal Ideations, Suicidal Ideations Hematologic/ Lymphatic: Denies: Easy Bruising, Easy Bleeding Patient Problems: Active and Suspected Problems (Last Reviewed 07/23/18 @ 17:20 by Chris Stark DO) DAI (acute kidney injury) (Acute) - Physical Exam General: Alert, Oriented x3, Cooperative HEENT: Atraumatic, PERRLA, EOMI, Normocephalic Neck: Supple, No JVD, Negative Carotid Bruits Lungs: Clear to auscultation, Normal air movement Cardiovascular: Regular rate, No murmurs Abdomen: Bowel Sounds Present, Soft, Non Tender Extremities: No edema, Capillary Refill Less than 3 Seconds Skin: No rashes, No breakdown Musculoskeletal: No Tenderness to Palpation of Joints or Extremities Neurological: Cranial nerves II-XII grossly intact Psych/Mental Status: Normal Affect, Appropriate Vital Signs Temp Pulse Resp BP Pulse Ox 98.5 F 60 18 131/48 H 95 07/24/18 09:09 07/24/18 09:09 07/24/18 09:09 07/24/18 09:09 07/24/18 09:09 Oxygen Flow Rate (L/min) 4 Oxygen Delivery Method Nasal Cannula Weight: 82.7 kg Body Mass Index (BMI) 28.7 Finger Stick Blood Glucose 200 Intake and Output for Last 24 Hours Intake Total 240 / 240 120 / 120 Output Total 3500 / 3500 Balance -3260 / -3260 120 / 120 Laboratory Tests Past 24 Hrs WBC 12.7 H RBC 3.42 L Hgb 10.4 L Hct 31.4 L MCV 91.8 MCH 30.4 WBC 16.9 H RBC 3.41 L Hgb 10.6 L Hct 32.0 L MCV 93.8 MCH 31.1 MCHC 33.1 RDW 15.1 H RDW Differential 48.9 H Assessment/Plan All Active Problems (Last Reviewed 07/23/18 @ 17:20 by Chris Stark DO) DAI (acute kidney injury) (Acute) S/P dialysis catheter insertion (Acute 05/22/18) History of thoracentesis (Acute 05/22/18) Acute renal failure superimposed on chronic kidney disease (Acute) Acute respiratory failure with hypoxia (Acute) Diastolic CHF (Acute) DAI CHF Now likely ESRD failed trial of stopping dialysis. He is now agreeable to do dialysis on an ongoing basis. will have Dr Lua see him for AVF placement (as outpatient) Dialysis today, continue outpatient dialysis on a MWF schedule History of prostrate enlargement. had insurance issues with Dr zhou here. was seeing Dr blas in [facility]. will check bladder scan today called dialysis unit he has a MWF 1230 PM spot will go back tuesday for dialysis discussed with Dr christensen discussed with at bedside 07/24/18 1022 <Electronically signed by Caleb Alaniz MD> Date Caleb Alaniz MD Cosigner Signature (if applicable): Date CC: ARMEN-Izabel Berger; Chepe Barrientos MD; Caleb Ogden MD Signed CONSULTATION Observed: 07/24/2018 Status: F Source: [place] 9:04 AM [facility] REPOSITORY [facility] Medical Records Department [address] [place] [address] [place] [address] Consultation 07/24/18 0853 MR#: [id number] Acct: [id number] Name: ANGELINA GIMENEZ Rep #: [id number] : 1950 67 From: Chepe Barrientos MD PCP: SEUN Poe Status: [id number] Problem List (1) History of non-ST elevation myocardial infarction (NSTEMI) Status: Chronic (2) History of left heart catheterization Status: Chronic Comment: 10/13/[address] Barrientos @ [facility]:Per Dr. Jiménez @ [facility]: CABG recommended (3) History of right and left heart catheterization Status: Chronic Comment: Patent NICHOLAS to LAD, SVG to 1st OM and SVG to RCA. Elevated right heart pressures, significant Diastolic dysfunction per cath done @ [facility], Dr. Barrientos (4) Stented coronary artery Status: Chronic Comment: 2003, JASON to circumflex ; 10/13/2009 tsfer from [facility] to [facility], total of 5 bare metal stents to RCA per Dr. Barrientos @ [facility]: 3.5 X 18 Plant Assigner, followed distally by 3.0 X12 Plant Assigner to distal RCA;3.5 X 15 Plant Assigner, followed proximally by 4.0 X 18 Plant Assigner to Mid RCA; 4.0 X 18 Plant Assigner to Proximal RCA (5) S/P CABG x 3 Status: Chronic Comment: [facility] per Dr. Osito Hernandez: NICHOLAS to LAD, reverse SVG to OMbranch of CX, reverse SVG to PDA of RCA. PDA endarterectomy. (6) Diastolic CHF Status: Acute Qualifiers: Heart failure chronicity: acute Qualified Code(s): I50.31 - Acute diastolic (congestive) heart failure (7) HLD (hyperlipidemia) Status: Chronic Qualifiers: (8) HTN (hypertension) Status: Chronic Qualifiers: (9) PAD (peripheral artery disease) Status: Chronic (10) Tobacco dependence Status: Chronic Reason for Consult Date of Consultation: 07/24/18 Reason for Consultation: Congestive heart failure, coronary artery disease, hypertension, tobacco abuse, hyperlipidemia, chronic kidney insufficiency History of Present Illness: YENNI GIMENEZ, is a 67 M who well known to me, and recently was seen in the office for hospital follow-up, after he was admitted several weeks ago for acute on chronic kidney disease and congestive heart failure. Patient is a history of tobacco abuse, hypertension, hypercholesterolemia, coronary artery disease status post angioplasty and stenting by myself at [facility] many years ago followed by multivessel bypass surgery. Patient has also been struggling with chronic renal insufficiency superimposed on BPH and was supposed to have a prostate procedure by Dr. Zhou. However, the patient develop worsening CHF on top of renal failure and was admitted to [facility] in the beginning of May 2018. The patient underwent right-sided thoracentesis as well as IV diuresis with worsening renal failure. He also underwent repeat left and right heart catheterization at [facility] at that time which demonstrated severe three-vessel coronary disease and widely patent grafts, as well as moderate pulmonary hypertension with pulmonary pressures in the mid 50s. The patient temporarily required hemodialysis via a right subclavian catheter, and was doing much better while on dialysis with respect to fluid management. Unfortunately he continues to smoke a few cigarettes per day. Apparently the patient was was being weaned off hemodialysis, and progressively developed worsening heart failure and fluid accumulation. He denies any chest pain or anginal symptoms he was taking and tolerating his medicines well. [] Past Medical History Allergies/Adverse Reactions: Allergies irbesartan [From Avapro] Adverse Reaction (Severe, Verified 07/23/18 14:43) Blisters zolpidem [From Ambien] Adverse Reaction (Severe, Verified 07/23/18 14:43) made me go crazy, memory loss Home Medications: Ambulatory Orders Medication Instructions Recorded Ropinirole HCl [Requip] 1 mg PO QHS 01/28/18 Rosuvastatin Calcium [Crestor] 40 mg PO QHS 01/28/18 Past Medical History (Chronic Problems): Chronic Problems (Last Reviewed 07/23/18 @ 17:20 by Chris Stark DO) History of non-ST elevation myocardial infarction (NSTEMI) (Chronic 01/21/11) History of left heart catheterization (Chronic 01/21/11) 10/13/[address] Barrientos @ [facility]:Per Dr. Jiménez @ [facility]: CABG recommended History of right and left heart catheterization (Chronic 05/24/18) Patent NICHOLAS to LAD, SVG to 1st OM and SVG to RCA. Elevated right heart pressures, significant Diastolic dysfunction per cath done @ [facility], Dr. Barrientos Stented coronary artery (Chronic) 2003, JASON to circumflex ; 10/13/2009 tsfer from [facility] to [facility], total of 5 bare metal stents to RCA per Dr. Barrientos @ [facility]: 3.5 X 18 Plant Assigner, followed distally by 3.0 X12 Plant Assigner to distal RCA;3.5 X 15 Plant Assigner, followed proximally by 4.0 X 18 Plant Assigner to Mid RCA; 4.0 X 18 Plant Assigner to Proximal RCA S/P CABG x 3 (Chronic 01/26/11) [facility] per Dr. Osito Hernandez: NICHOLAS to LAD, reverse SVG to OMbranch of CX, reverse SVG to PDA of RCA. PDA endarterectomy. Status post peripheral artery angioplasty with insertion of stent (Chronic 2010) Right common iliac, 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 01/31/2011 (critical left main and restenosis of RCA stents) HLD (hyperlipidemia) (Chronic) HTN (hypertension) (Chronic) PAD (peripheral artery disease) (Chronic) COPD (chronic obstructive pulmonary disease) (Chronic) Tobacco dependence (Chronic) CKD (chronic kidney disease) (Chronic) Leukocytosis (Chronic) Anemia (Chronic) BPH (benign prostatic hyperplasia) (Chronic) Surgical History: coronary bypass surgery, tonsillectomy Psychiatric History: No pertinent psych hx - *Family History Maternal Family History: Family History (Last Reviewed 07/23/18 @ 17:20 by Chris Stark DO) Other CAD (coronary artery disease) CVA (cerebral vascular accident) Cancer Hypertension History Items: Heart Disease Paternal Family History: Family History (Last Reviewed 07/23/18 @ 17:20 by Chris Stark DO) Other CAD (coronary artery disease) CVA (cerebral vascular accident) Cancer Hypertension History Items: Heart Disease Lives: Spouse/ Significant Other Smoking Status: Light Smoker (<10/day) Tobacco Use: Cigarettes Alcohol: Occasional Drugs: None Review of Systems - Review of Systems General: Denies: Fever, Night Sweats, Fatigue Cardiovascular: Denies: Chest Discomfort, Shortness of Breath, Orthopnea, PND, Peripheral Edema, Palpitations, Lightheadedness, Dizziness, Near Syncope, Syncope Respiratory: Denies: Cough, Sputum Production, Hemoptysis Gastrointestinal: Denies: Hematemesis, Hematochezia, Melena Genitourinary: Denies: Dysuria, Hematuria Skin: Denies: Rash Subjectve: Patient laying in bed, awake, alert, on BiPAP, no acute distress. Objective: Vital Signs Temp Pulse Resp BP Pulse Ox 98.2 F 60 20 H 128/49 H 94 07/24/18 08:07 07/24/18 08:07 07/24/18 08:07 07/24/18 08:07 07/24/18 08:07 Oxygen Flow Rate (L/min) 4 Oxygen Delivery Method Nasal Cannula Weight: 182 lb 5.156 oz Body Mass Index (BMI) 28.7 Finger Stick Blood Glucose 200 Intake and Output for Last 24 Hours Intake Total 240 / 240 120 / 120 Output Total 3500 / 3500 Balance -3260 / -3260 120 / 120 General: Awake, Alert, Oriented x 3 HEENT: PERRL, EOMI, Sclera Non Icteric Neck: Supple, Good ROM, No Lymph Node Enlargement Lungs: Clear to auscultation Cardiovascular: Regular Rhythm, Normal S1, Normal S2, No Murmurs, No Rubs, No Gallops Vascular: No Carotid Bruits, Normal Femoral Pulses, Normal Radial Pulses, Normal Dorsalis Pedal Pulse, Normal Posterior Tibial Pulses Abdomen: Bowel Sounds Present, Soft, Non Tender, No HSM, No Organomegaly Extremities: No Cyanosis, No Clubbing, Bilateral Edema +2 Neurological: No Focal Motor or Sensory Deficit 07/23/18 15:15: WBC 12.7 H, RBC 3.42 L, Hgb 10.4 L, Hct 31.4 L, MCV 91.8, MCH 30.4, MCHC 33.1, RDW 15.1 H, RDW Differential 50.6 H, Plt Count 167, MPV 10.0, Immature Gran % (Auto) 0.200, Neut % (Auto) 78.8 H, Lymph % (Auto) 9.3 L, [place] % (Auto) 10.7 H, Eos % (Auto) 0.8, Baso % (Auto) 0.2, Absolute Neuts (auto) 10.0 H, Total Counted Not Reportable 07/23/18 15:15: Sodium 129 L, Potassium 3.0 L, Chloride 91 L, Carbon Dioxide 24.0, Anion Gap 14, BUN 121 H*, Creatinine 3.11 H, Est GFR (MDRD) Af Amer 26 L, Est GFR (MDRD) Non-Af 21 L, BUN/Creatinine Ratio 38.9 H, Glucose 101, Calcium 8.7, Troponin I 0.064 H 07/23/18 15:15: B-Natriuretic Peptide 2929.3 H 07/23/18 18:17: Troponin I 0.062 H 07/23/18 21:27: Troponin I 0.092 H 07/23/18 23:24: Sodium 133 L, Potassium 3.8, Chloride 96 L, Carbon Dioxide 25.0, Anion Gap 12, BUN 61 H, Creatinine 2.38 H, Est GFR (MDRD) Af Amer 35 L, Est GFR (MDRD) Non-Af 29 L, BUN/Creatinine Ratio 25.6 H, Glucose 155 H, Calcium 8.6 07/24/18 03:04: pH 7.49 H, Bicarbonate Actual 26.6 H, POC Total CO2 28, Base Excess 3 H, O2 Saturation 94 L, ABG pCO2 35.4, ABG pO2 65 L, Mary Test POS 07/24/18 04:10: Sodium 135 L, Potassium 3.7, Chloride 98, Carbon Dioxide 25.0, Anion Gap 12, BUN 71 H, Creatinine 2.80 H, Est GFR (MDRD) Af Amer 29 L, Est GFR (MDRD) Non-Af 24 L, BUN/Creatinine Ratio 25.4 H, Glucose 151 H, Calcium 8.3 L 07/24/18 04:10: WBC 16.9 H, RBC 3.41 L, Hgb 10.6 L, Hct 32.0 L, MCV 93.8, MCH 31.1, MCHC 33.1, RDW 15.1 H, RDW Differential 48.9 H, Plt Count 199, MPV 10.5, Immature Gran % (Auto) 0.300, Neut % (Auto) 86.6 H, Lymph % (Auto) 6.4 L, [place] % (Auto) 6.2, Eos % (Auto) 0.3, Baso % (Auto) 0.2, Absolute Neuts (auto) 14.7 H, Total Counted Not Reportable 07/24/18 04:10: Lactic Acid 0.5 Rhythm: EKG: ECHO: Stress Test: Cardiac Cath: PCI: CT Surgery: Holter monitor: EPS: PPM: CXR: Chest CT Scan: Assessment/Plan 1. Ischemic cardiomyopathy: Patient recently underwent left and right heart catheterization which demonstrated moderate pulmonary hypertension superimposed on severe three-vessel coronary artery disease with widely patent grafts. Would not recommend any additional cardiac evaluation at this time. Would not recommend repeat echocardiogram or catheterization. It appears the patient's fluid management status requires him to have continual and ongoing future hemodialysis. Would recommend consideration for AV fistula placement with Dr. Lua sooner rather than later in order to maintain fluid management. Recommend continuing IV diuresis with IV Lasix, and continue antihypertensive therapies as outlined in the MRF. With this diastolic dysfunction, there is no question that his hypertension and fluid overload induces and precipitate congestive heart failure given his pulmonary hypertension. Patient felt much better from a pulmonary standpoint while undergoing regular hemodialysis. 2. Hyperlipidemia: Continue statin based medications. 3. Peripheral vascular disease: The patient will require AV fistula placement if agreeable by renal. In addition he will require apparently carotid endarterectomy in the near future. 4. BPH: Patient was to undergo a prostate surgery by Dr. Zhou prior to his last admission, and patient may benefit from urological consultation and correction of his BPH if still indicated. 5. Thank you very much for the opportunity to participate in the cardiac care of your patient. Consultation took place between 8 AM and 8:30 AM. Code Visit Inpatient E AND M: 59930 Init Hosp L2 07/24/18 0904 <Electronically signed by Chepe Barrientos MD> Date Chepe Barrientos MD Cosigner Signature (if applicable): Date CC: BARREL LATHE OPERATOR INSIDE-C Wong Berger; Chepe Barrientos MD; Caleb Ogden MD Signed Observed: 07/24/2018 Status: F Source: [place] CULTURE, SPUTUM 8:35 AM [facility] REPOSITORY Gram Stain Specimen is mostly saliva and as such may not represent an accurate assesment of the patients' pulmonary/respiratory condition. This specimen has been REJECTED due to Laboratory criteria: Saliva Sample. IRVIN has been notified of need of recollection. 07/24/18 1054 Jennifer Evans Gram Stain 3+ Epithelial cells No White Blood Cells 3+ Gram positive cocci in chains and clusters Resp. Culture Test not performed Performed By: #### M100.0800 #### [facility] [address] [place], [address] CHEST PA AND LATERAL Observed: 07/24/2018 Status: F Source: [place] 8:15 AM [facility] REPOSITORY [facility] Imaging Services [address] [place] [address] Chest PA and Lateral MR#: [id number] Acct: [id number] Name: ANGELINA GIMENEZ Rep #: [id number] : 1950 M 67 From: Jaya Bailon MD PCP: SEUN Poe Status: ADM IN Study: Chest PA and Lateral Date of Exam: 07/24/18 Exam# [id number] Ordering Dr: Itz Bennett STUDY: X-RAY CHEST REASON FOR EXAM: Male, 67 years old. Shortness of breath. TECHNIQUE: AP upright and lateral views. COMPARISON: 07/23/2018. FINDINGS: Double lumen right IJ approach catheter tips remain in the SVC. Pulmonary hyperinflation with flattening of the hemidiaphragms are suggestive of COPD. There is focal consolidation in the right posterior lung base. Clearing of bilateral pleural fluid. Mild cardiomegaly is unchanged. Normal mediastinum and justyn. Improvement of pulmonary vascular congestion. Mild atherosclerotic calcification of the left aortic knob is unchanged. Anterior and lateral marginal spurring of the thoracic spine. Normal visualized ribs, clavicles, and shoulders. There is no demonstrated abnormality of the visualized soft tissue structures of the upper abdomen. RAD/Chest PA and Lateral IMPRESSION: 1. Right posterior lung base pneumonia, new when compared to 07/23/2018. 2. Clearing of mild pulmonary vascular congestion and bilateral pleural fluid. Electronically Signed: Jaya Bailon MD at 9:22 EDT , Service support , CC: SEUN Berger; MATTEO Bennett Specialty Manufacturing Supervisor: Signed Observed: 07/24/2018 Status: F Source: [place] CULTURE, BLOOD (WB) 4:16 AM [facility] REPOSITORY Has pt arrived? Y BC No growth in 5 days. Performed By: #### M200.1000 #### [facility] [place], [address] CBC W/DIFF, AUTOMATED Collected: 07/24/2018 Status: F Source: [place] 4:10 AM [facility] REPOSITORY TYPE CODE TESTS RESULT OUT OF RANGE REFERENCE UNITS LAB L100.1000 4.4-11.0 K/mm3 High WBC 16.9 LAB L100.1200 4.6-6.2 M/mm3 Low RBC 3.41 LAB L100.1300 13.0-16.5 g/dl Low HGB 10.6 LAB L100.1400 40-54 % Low HCT 32.0 LAB L100.1500 80-94 fL Normal MCV 93.8 LAB L100.1600 27.0-32.0 pg Normal MCH 31.1 LAB L100.1700 32-36 g/gl Normal MCHC 33.1 LAB L100.1810 11.6-14.6 % High RDW CV 15.1 LAB L100.1820 35.1-43.9 fl High RDW SD 48.9 LAB L100.1900 150-450 K/mm3 Normal PLT 199 LAB L100.2000 6.2-12.0 fl Normal MPV 10.5 LAB L100.2100 47-70 % High NEUT% 86.6 LAB L100.2200 19-41 % Low LY% 6.4 LAB L100.2300 0-10 % Normal MONO% 6.2 LAB L100.2400 0-5 % Normal EO% 0.3 LAB L100.2500 0-1 % Normal BASO% 0.2 LAB L100.2550 0.0-0.9 % Normal IM GRAN % 0.300 Result Comment: IG% - Immature Granulocytes (promyelocytes, myelocytes and metamyelocytes) > 1% indicates that a LEFT SHIFT is Present. LAB L100.2620 2.0-7.7 X10 3/uL High Absolute Neut 14.7 LAB L100.2720 0.83-4.51 X10 3/ul Normal Absolute Lymph 1.08 Performed By: #### L100.0100 #### [facility] [address] [place], [address] BASIC METABOLIC Collected: 07/24/2018 Status: F Source: [place] PROFILE (BMP) 4:10 AM [facility] REPOSITORY TYPE CODE TESTS RESULT OUT OF RANGE REFERENCE UNITS LAB L501.0100 74-106 mg/dL High GLU 151 Result Comment: Fasting Glucose result greater than or equal to 126 mg/dL suggests DIABETES MELLITUS per A.D.A. criteria. Please note revised GLUCOSE reference range effective 2017. LAB L501.1000 7-18 mg/dL High BUN 71 LAB L501.1100 0.70-1.30 mg/dL High CREAT,SERUM 2.80 Result Comment: The validity of the calculated GFR AND GFRAA in patients over 70 years has not been determined. Clinical correlation is essential. LAB L501.1110 >60 mL/min Low EST GFR 24 Result Comment: Non- GFR Calc LAB L501.1115 >60 mL/min Low EST GFR - AA 29 Result Comment: GFR Calc LAB L501.1255 ml/min Normal Estimated CRCL 25.11 LAB L501.1300 10-20 RATIO High BUN/CRE 25.4 LAB L501.2200 8.5-10 mg/dL Low .1 CA 8.3 LAB L501.5300 136-14 mmol/L Low 5 NA 135 LAB L501.5600 3.5-5. mmol/L Normal 1 K 3.7 LAB L501.5900 98-107 mmol/L Normal CL 98 LAB L501.6100 21.0-3 mmol/L Normal 2.0 CO2 25.0 LAB L501.6200 5-15 Normal GAP 12 Performed By: #### L500.2500 #### [facility] [address] [place], [place], [address] LACTIC ACID Collected: 07/24/2018 Status: F Source: [place] 4:10 AM [facility] REPOSITORY Order Comment: Yes/No query for Sepsis Lactate Rule Y TYPE CODE TESTS RESULT OUT OF RANGE REFERENCE UNITS LAB L503.6005 0.4-2.0 mmol/L Normal LACTIC ACID 0.5 Performed By: #### L503.6005, M200.1000 #### [facility] [address] [place], [address] Observed: 07/24/2018 Status: F Source: [place] CULTURE, BLOOD (WB) 4:10 AM [facility] REPOSITORY Has pt arrived? Y BC No growth in 5 days. Performed By: #### L503.6005, M200.1000 #### [facility] [address] [place], [address] BLOOD GASES BY CPS Collected: 07/24/2018 Status: F Source: [place] 3:04 AM [facility] REPOSITORY TYPE CODE TESTS RESULT OUT OF RANGE REFERENCE UNITS LAB L9000.9990 Normal BLD GAS TYPE ART LAB L9001.1000 Normal SITE L Radial LAB L9001.1010 Normal MARY TEST POS LAB L9001.1050 O2 Normal Delivery Dev Nasal Can LAB L9001.1055 /min Normal LPM 5.0 LAB L9001.1104 Normal Results To HOSP MD LAB L9001.1105 Normal Time Given 257 LAB L9001.1110 7.35-7.45 High pH - I-STAT 7.49 LAB L9001.1210 35-45 mmHg Normal pCO2 - ISTAT 35.4 LAB L9001.1310 75-100 mmHG Low PO2 I-STAT 65 LAB L9001.2300 22-26 mmol/L High HCO3 ISTAT 26.6 LAB L9001.2400 -2 to +2 mmol/L High BE ISTAT 3 LAB L9001.2415 mmol/L Normal TOTAL CO2 28 ISTAT LAB L9001.2425 95-99 % Low SO2 ISTAT 94 Performed By: #### L9000.0800 #### [facility] Point of Care [address] [place] [address] BASIC METABOLIC Collected: 07/23/2018 Status: F Source: [place] PROFILE (BMP) 11:24 PM [facility] REPOSITORY TYPE CODE TESTS RESULT OUT OF RANGE REFERENCE UNITS LAB L501.0100 74-106 mg/dL High GLU 155 Result Comment: Fasting Glucose result greater than or equal to 126 mg/dL suggests DIABETES MELLITUS per A.D.A. criteria. Please note revised GLUCOSE reference range effective 2017. LAB L501.1000 7-18 mg/dL High BUN 61 LAB L501.1100 0.70-1.30 mg/dL High CREAT,SERUM 2.38 Result Comment: The validity of the calculated GFR AND GFRAA in patients over 70 years has not been determined. Clinical correlation is essential. LAB L501.1110 >60 mL/min Low EST GFR 29 Result Comment: Non- GFR Calc LAB L501.1115 >60 mL/min Low EST GFR - AA 35 Result Comment: GFR Calc LAB L501.1255 ml/min Normal Estimated CRCL 29.54 LAB L501.1300 10-20 RATIO High BUN/CRE 25.6 LAB L501.2200 8.5-10 mg/dL Normal .1 CA 8.6 LAB L501.5300 136-14 mmol/L Low 5 NA 133 LAB L501.5600 3.5-5. mmol/L Normal 1 K 3.8 LAB L501.5900 98-107 mmol/L Low CL 96 LAB L501.6100 21.0-3 mmol/L Normal 2.0 CO2 25.0 LAB L501.6200 5-15 Normal GAP 12 Performed By: #### L500.2500 #### [facility] [address] [place], [place], [address] TROPONIN-I Collected: 07/23/2018 Status: F Source: [place] 9:27 PM [facility] REPOSITORY Order Comment: 'TROP' Serial specimen #1, #2 or #3: 3 TYPE CODE TESTS RESULT OUT OF RANGE REFERENCE UNITS LAB L501.4010 <0.045 ng/mL High 0.092 TROPONIN-I Result Comment: TROPONIN-I EXPECTED VALUES <0.045 Negative 0.045 - 0.590 Consistent with Cardiac Damage > OR = 0.600 Critical Value Not every elevated troponin is indicative of SC. These values should be used with clinical judgement in examining the patient's clinical picture for diagnosis. To establish a diagnosis of SC versus myocardial injury, there must be a demonstrated rise and/or fall in the troponin values, in addition to ischemic symptoms, EKG changes, new regional wall motion abnormality, and/or angiographical evidence. PLEASE NOTE: REFERENCE RANGES EDITED 18 Performed By: #### L501.4010 #### [facility] [address] [place], [address] HISTORY AND PHYSICAL Observed: 07/23/2018 Status: F Source: [place] EXAM 5:30 PM [facility] REPOSITORY [facility] Medical Records Department [address] [place] [address] History and Physical 07/23/18 1646 MR#: [id number] Acct: [id number] Name: ANGELINA GIMENEZ Rep #: [id number] : 1950 67 From: Itz FELIPE PCP: SEUN Poe Status: ADM IN Y Location: [place] [id number] <Itz Bennett - Last Filed: 07/23/18 16:46> Problem List (1) Diastolic CHF Status: Acute (2) Acute respiratory failure with hypoxia Status: Acute (3) ADI (acute kidney injury) Status: Acute (4) HLD (hyperlipidemia) Status: Chronic (5) HTN (hypertension) Status: Chronic (6) PAD (peripheral artery disease) Status: Chronic (7) COPD (chronic obstructive pulmonary disease) Status: Chronic (8) Tobacco dependence Status: Chronic (9) CKD (chronic kidney disease) Status: Chronic (10) BPH (benign prostatic hyperplasia) Status: Chronic History of Present Illness Date of Admission: 07/23/18 Chief Complaint: SOB The patient is a 67 year old M with a hx of CKDIV-V, recently attempted to be weaned off dialysis per Dr. Alaniz (last session 2 hour last Tuesday), also with a hx of diastolic CHF EF 50%, CAD, prior cabg and stents, prior SC, HLD, HTN, PAD, carotid artery stenosis with plan for carotid endoarterectomy with Dr. Lua, known BPH with plans for radiation therapy, who presents to the ER with increased SOB and edema. He believes he has gained about 13 pounds in the last two days. He states last week his legs were thina with no edema, and now they are severely swollen. He is SOB at rest, with exertion, and has orthopnea and PND. No chest pain/heaviness/tightness. Some mild abdominal distention. Pt is agreeable to further dialysis. Pt still smokes but wants to quit and requests a patch. He complains of difficulty emptying his bladder and does have significant BPH. He also complains of chronic constipation however last bm was yesterday. [] Past Medical History Past Medical History (Chronic Problems): Chronic Problems (Last Reviewed 06/29/18 @ 11:14 by Enedina Garcia) History of non-ST elevation myocardial infarction (NSTEMI) (Chronic 01/21/11) History of left heart catheterization (Chronic 01/21/11) 10/13/[address] Barrientos @ [facility]:Per Dr. Jiménez @ [facility]: CABG recommended History of right and left heart catheterization (Chronic 05/24/18) Patent NICHOLAS to LAD, SVG to 1st OM and SVG to RCA. Elevated right heart pressures, significant Diastolic dysfunction per cath done @ [facility], Dr. Barrientos Stented coronary artery (Chronic) 2003, JASON to circumflex ; 10/13/2009 tsfer from [facility] to [facility], total of 5 bare metal stents to RCA per Dr. Barrientos @ [facility]: 3.5 X 18 Plant Assigner, followed distally by 3.0 X12 Plant Assigner to distal RCA;3.5 X 15 Plant Assigner, followed proximally by 4.0 X 18 Plant Assigner to Mid RCA; 4.0 X 18 Plant Assigner to Proximal RCA S/P CABG x 3 (Chronic 01/26/11) [facility] per Dr. Osito Hernandez: NICHOLAS to LAD, reverse SVG to OMbranch of CX, reverse SVG to PDA of RCA. PDA endarterectomy. Status post peripheral artery angioplasty with insertion of stent (Chronic 2010) Right common iliac, 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 01/31/2011 (critical left main and restenosis of RCA stents) HLD (hyperlipidemia) (Chronic) HTN (hypertension) (Chronic) PAD (peripheral artery disease) (Chronic) COPD (chronic obstructive pulmonary disease) (Chronic) Tobacco dependence (Chronic) CKD (chronic kidney disease) (Chronic) Leukocytosis (Chronic) Anemia (Chronic) BPH (benign prostatic hyperplasia) (Chronic) Medical History: Medical History (Last Reviewed 06/29/18 @ 11:14 by Enedina Garcia) History of non-ST elevation myocardial infarction (NSTEMI) (Chronic) Onset Date: 01/21/11 I25.2 Atherosclerotic heart disease of [place] coronary artery without angina pectoris (Chronic) I25.10 2003, JASON to circumflex ; 10/10/2009 tsfer from [facility] to [facility], total of 5 bare metal stents to RCA; CABG X [address] [facility] 01/31/2011 (critical left main and restenosis of RCA stents) Acute renal failure superimposed on chronic kidney disease (Acute) N17.9, N18.9 Diastolic CHF (Acute) I50.30 HLD (hyperlipidemia) (Chronic) E78.5 HTN (hypertension) (Chronic) I10 PAD (peripheral artery disease) (Chronic) I73.9 COPD (chronic obstructive pulmonary disease) (Chronic) J44.9 Tobacco dependence (Chronic) F17.200 CKD (chronic kidney disease) (Chronic) N18.9 Leukocytosis (Chronic) D72.829 Anemia (Chronic) D64.9 BPH (benign prostatic hyperplasia) (Chronic) N40.0 Allergies irbesartan [From Avapro] Adverse Reaction (Severe, Verified 07/23/18 14:43) Blisters zolpidem [From Ambien] Adverse Reaction (Severe, Verified 07/23/18 14:43) made me go crazy, memory loss Home Medications: Ambulatory Orders Medication Instructions Recorded Ropinirole HCl [Requip] 1 mg PO QHS 01/28/18 Rosuvastatin Calcium [Crestor] 40 mg PO QHS 01/28/18 Finasteride [Proscar] 5 mg PO DAILY 04/08/18 Albuterol Aerosols [Ventolin 2.5 mg INHALATION Q4H PRN 05/10/18 Surgical History: Surgical History (Last Reviewed 06/29/18 @ 11:14 by Enedina Garcia) History of left heart catheterization (Chronic) Onset Date: 01/21/11 Z98.890 10/13/[address] Barrientos @ [facility]:Per Dr. Jiménez @ [facility]: CABG recommended S/P dialysis catheter insertion (Acute) Onset Date: 05/22/18 Z95.828, Z99.2 Right internal jugular access per Dr. Katherine Lua History of right and left heart catheterization (Chronic) Onset Date: 05/24/18 Z98.890 Patent NICHOLAS to LAD, SVG to 1st OM and SVG to RCA. Elevated right heart pressures, significant Diastolic dysfunction per cath done @ [facility], Dr. Barrientos History of thoracentesis (Acute) Onset Date: 05/22/18 Z98.890 1700 cc removed from right side Stented coronary artery (Chronic) Z95.5 2004, JASON to circumflex ; 10/13/2009 tsfer from [facility] to [facility], total of 5 bare metal stents to RCA per Dr. Barrientos @ [facility]: 3.5 X 18 Plant Assigner, followed distally by 3.0 X12 Plant Assigner to distal RCA;3.5 X 15 Plant Assigner, followed proximally by 4.0 X 18 Plant Assigner to Mid RCA; 4.0 X 18 Plant Assigner to Proximal RCA S/P CABG x 3 (Chronic) Onset Date: 01/26/[address] [facility] per Dr. Osito Rivasline: NICHOLAS to LAD, reverse SVG to OMbranch of CX, reverse SVG to PDA of RCA. PDA endarterectomy. Surgical History: coronary bypass surgery, tonsillectomy Psychiatric History: No pertinent psych hx Lives: Spouse/ Significant Other Smoking Status: Light Smoker (<10/day) Tobacco Use: Cigarettes Alcohol: Occasional - 1-2 beers per day Drugs: None - *Family History Maternal Family History: Family History (Last Reviewed 06/29/18 @ 11:14 by Enedina Garcia) Other CAD (coronary artery disease) CVA (cerebral vascular accident) Cancer Hypertension History Items: Heart Disease Paternal Family History: Family History (Last Reviewed 06/29/18 @ 11:14 by Enedina Garcia) Other CAD (coronary artery disease) CVA (cerebral vascular accident) Cancer Hypertension History Items: Heart Disease Review of Systems Constitutional: Denies: Chills, Fever, Weight Change HEENT: Denies: Head Aches, Sinus Congestion, Sinus Drainage Cardiovascular: Reports: Orthopnea, Paroxysmal Noc. Dyspnea. Denies: Chest Pain, Chest Pressure, Chest Tightness, Heaviness, Light Headedness, Palpitations, Syncope Respiratory: Reports: Shortness of Breath, Shortness of breath at rest, Shortness of breath upon exertion, Wheezing. Denies: Cough, Sputum production Gastrointestinal: Denies: Abdominal Pain, Nausea, Vomiting Genitourinary: Denies: Dysuria Musculoskeletal: Denies: Joint Pain, Joint Tenderness Skin: Denies: Rash, Wounds Neurological: Denies: Numbness, Tingling, Focal weakness Psychiatric: Denies: Anxiety, Depression, Homicidal Ideations, Suicidal Ideations Hematologic/ Lymphatic: Denies: Easy Bruising, Easy Bleeding VTE Information - Inpt Only VTE Present on Admission: No VTE Mechan Device Prophylaxis: SCD's VTE Pharm Prophylaxis ordered?: Yes Patient Problems: Active and Suspected Problems (Last Reviewed 06/29/18 @ 11:14 by Enedina Garcia) DAI (acute kidney injury) (Acute) - Physical Exam General: Alert, Oriented x3, Cooperative HEENT: Atraumatic, PERRLA, EOMI, Normocephalic Neck: Supple, No JVD, Negative Carotid Bruits Lungs: Wheezes Cardiovascular: Regular rate, No murmurs Abdomen: Bowel Sounds Present, Soft, Non Tender, Distended - mild, - - ventral hernia, large. Extremities: Capillary Refill Less than 3 Seconds, Edema - 3+ pitting edema BLE up to knees Skin: No rashes, No breakdown Musculoskeletal: No Tenderness to Palpation of Joints or Extremities Neurological: Cranial nerves II-XII grossly intact Psych/Mental Status: Normal Affect, Appropriate, Alert and oriented to time, place, person, mood and affect Vital Signs Temp Pulse Resp BP Pulse Ox 97.8 F 71 19 H 170/70 H 93 07/23/18 14:39 07/23/18 16:05 07/23/18 16:05 07/23/18 16:05 07/23/18 16:30 Oxygen Flow Rate (L/min) 4 Oxygen Delivery Method Nasal Cannula Weight: 185 lb 6.54 oz Body Mass Index (BMI) 28.1 Finger Stick Blood Glucose 200 Laboratory Tests Past 24 Hrs WBC 12.7 H Assessment/Plan All Active Problems (Last Reviewed 06/29/18 @ 11:14 by Enedina Garcia) DAI (acute kidney injury) (Acute) S/P dialysis catheter insertion (Acute 05/22/18) History of thoracentesis (Acute 05/22/18) Acute renal failure superimposed on chronic kidney disease (Acute) Acute respiratory failure with hypoxia (Acute) Diastolic CHF (Acute) 1. Acute hypoxic respiratory failure 2/2 acute diastolic CHF exacerbation - last EF 50% this year. Severe SOB, wheezing, edema, BNP elevation, CXR c/w volume overload, 13 lb weight gain. Likely 2/2 discontinuation of dialysis. Bumex and metolazone not effective. Possibly component of BPH. Start IV lasix, consult nephro for possible dialysis needs, add HEATHER wraps to legs, provide sodium and fluid restriction, monitor I/O's, check post void bladder scan. No HEATHER-I 2/2 renal failure. -Indeterminate troponin likely 2/2 CHF and renal failure. Cycle. Maintain on tele. NO chest pain. -currently requiring 4 lpm to maintain good o2 sats, and lately has not been on home O2 although he does have the equipment at home. 2. DAI on CKDIV/V - increased creatinine, renal consulted as above. Last dialysis this past Tuesday. Replace potassium, suspect hypervolemic hyponatremia 2/2 volume overload, possibly 2/2 metolazone however pt is not diuresing. 3. CAD - prior CABG/Stents/SC - continue other home meds - coreg, asa, statin, plavix, imdur 4. BPH - follows Daisy, plans for radiation therapy. Continue Proscar/Flomax and get bladder scan 5. Hx CVA - asa/statin/plavix 6. HTN - elevated, monitor with diuresis, prn hydralazine 7. Chronic constipation - continue prn lactulose 8. Carotid stenosis - o/p follow up with Dr. Lua for surgery 9. Ventral hernia - no acute issues DVT ppx: heparin This patient was seen by Itz Bennett PA-C under the supervision of Doctor Lincoln. <Chris Stark - Last Filed: 07/23/18 17:30> Problem List (1) DAI (acute kidney injury) Status: Acute (2) Acute respiratory failure with hypoxia Status: Acute (3) Diastolic CHF Status: Acute Qualifiers: Heart failure chronicity: acute Qualified Code(s): I50.31 - Acute diastolic (congestive) heart failure History of Present Illness Chief Complaint: shortness of breath. weight gain. edema. The patient is a 67 year old M presents with increasing shortness of breath weight gain since July 17. On July 17 patient had what was to be his last dialysis and only had 2 hours at that time. Plan was for him to be watched. However during that time patient has had the aforementioned symptoms. Presents to the emergency room and diagnosed with heart failure. Chest x-ray consistent with pulmonary edema BNP was 2929. This is similar to the patient's previous heart failure exacerbations. Patient received aerosols in the emergency room. Dr. Ogden, of nephrology, was contacted and advised admitting the patient and the plan is for dialysis. Patient still does have his vascular catheter in place. [] Past Medical History Medical History: Medical History (Last Reviewed 07/23/18 @ 17:20 by Chris Stark DO) History of non-ST elevation myocardial infarction (NSTEMI) (Chronic) Onset Date: 01/21/11 I25.2 Atherosclerotic heart disease of [place] coronary artery without angina pectoris (Chronic) I25.10 2003, JASON to circumflex ; 10/10/2009 tsfer from [facility] to [facility], total of 5 bare metal stents to RCA; CABG X [address] [facility] 01/31/2011 (critical left main and restenosis of RCA stents) Acute renal failure superimposed on chronic kidney disease (Acute) N17.9, N18.9 Diastolic CHF (Acute) I50.30 HLD (hyperlipidemia) (Chronic) E78.5 HTN (hypertension) (Chronic) I10 PAD (peripheral artery disease) (Chronic) I73.9 COPD (chronic obstructive pulmonary disease) (Chronic) J44.9 Tobacco dependence (Chronic) F17.200 CKD (chronic kidney disease) (Chronic) N18.9 Leukocytosis (Chronic) D72.829 Anemia (Chronic) D64.9 BPH (benign prostatic hyperplasia) (Chronic) N40.0 Allergies irbesartan [From Avapro] Adverse Reaction (Severe, Verified 07/23/18 14:43) Blisters zolpidem [From Ambien] Adverse Reaction (Severe, Verified 07/23/18 14:43) made me go crazy, memory loss Surgical History: Surgical History (Last Reviewed 07/23/18 @ 17:20 by Chris Stark DO) History of left heart catheterization (Chronic) Onset Date: 01/21/11 Z98.890 10/13/[address] Barrientos @ [facility]:Per Dr. Jiménez @ [facility]: CABG recommended S/P dialysis catheter insertion (Acute) Onset Date: 05/22/18 Z95.828, Z99.2 Right internal jugular access per Dr. Katherine Lua History of right and left heart catheterization (Chronic) Onset Date: 05/24/18 Z98.890 Patent NICHOLAS to LAD, SVG to 1st OM and SVG to RCA. Elevated right heart pressures, significant Diastolic dysfunction per cath done @ [facility], Dr. Barrientos History of thoracentesis (Acute) Onset Date: 05/22/18 Z98.890 1700 cc removed from right side Stented coronary artery (Chronic) Z95.5 2004, JASON to circumflex ; 10/13/2009 tsfer from [facility] to [facility], total of 5 bare metal stents to RCA per Dr. Barrientos @ [facility]: 3.5 X 18 Plant Assigner, followed distally by 3.0 X12 Plant Assigner to distal RCA;3.5 X 15 Plant Assigner, followed proximally by 4.0 X 18 Plant Assigner to Mid RCA; 4.0 X 18 Plant Assigner to Proximal RCA S/P CABG x 3 (Chronic) Onset Date: 01/26/[address] [facility] per Dr. Osito Hernandez: NICHOLAS to LAD, reverse SVG to OMbranch of CX, reverse SVG to PDA of RCA. PDA endarterectomy. Surgical History: coronary bypass surgery, tonsillectomy Psychiatric History: No pertinent psych hx Lives: Spouse/ Significant Other Smoking Status: Light Smoker (<10/day) Tobacco Use: Cigarettes Alcohol: Occasional Drugs: None - *Family History Maternal Family History: Family History (Last Reviewed 07/23/18 @ 17:20 by Chris Stark DO) Other CAD (coronary artery disease) CVA (cerebral vascular accident) Cancer Hypertension Paternal Family History: Family History (Last Reviewed 07/23/18 @ 17:20 by Chris Stark DO) Other CAD (coronary artery disease) CVA (cerebral vascular accident) Cancer Hypertension Review of Systems Constitutional: Denies: Chills, Fever, Weight Change HEENT: Denies: Head Aches, Sinus Congestion, Sinus Drainage Cardiovascular: Reports: Orthopnea, Paroxysmal Noc. Dyspnea. Denies: Chest Pain, Chest Pressure, Chest Tightness, Heaviness, Light Headedness, Palpitations, Syncope Respiratory: Reports: Shortness of Breath, Shortness of breath at rest, Shortness of breath upon exertion, Wheezing. Denies: Cough, Sputum production Gastrointestinal: Denies: Abdominal Pain, Nausea, Vomiting Genitourinary: Denies: Dysuria Musculoskeletal: Denies: Joint Pain, Joint Tenderness Skin: Denies: Rash, Wounds Neurological: Denies: Focal weakness, Numbness, Tingling Psychiatric: Denies: Anxiety, Depression, Homicidal Ideations, Suicidal Ideations Hematologic/ Lymphatic: Denies: Easy Bruising, Easy Bleeding Comment: All review of systems are negative except as mentioned in the history of present illness and the other review of systems. VTE Information - Inpt Only VTE Present on Admission: No VTE Mechan Device Prophylaxis: SCD's VTE Pharm Prophylaxis ordered?: Yes - Physical Exam General: Alert, Cooperative, No apparent distress HEENT: Atraumatic, Normocephalic Oral: Moist Mucosa, No Gingival or Mucosal Lesions/ Ulcerations Neck: No Nodes, Thyroid Normal Size and Texture, - - Cystic structure on the posterior aspect of his right neck. No fluctuance. No erythema. No tenderness. Lungs: Diminished, Wheezes Cardiovascular: Regular rate, Regular Rhythm, Normal S1, Normal S2 Abdomen: Bowel Sounds Present, Soft, Non Tender, Non-Distended, Distended, - Extremities: Capillary Refill Less than 3 Seconds, Edema Skin: No rashes, No breakdown, - - Noted telangiectasias on his skin Musculoskeletal: No Tenderness to Palpation of Joints or Extremities, No Muscle Wasting Neurological: Cranial nerves II-XII grossly intact, Sensory exam intact to light touch and pain, Coordination normal, Gait narrow based and stable Psych/Mental Status: Normal Affect, Appropriate Vital Signs Temp Pulse Resp BP Pulse Ox 36.6 C 72 19 H 170/70 H 93 07/23/18 14:39 07/23/18 17:12 07/23/18 16:05 07/23/18 16:05 07/23/18 16:30 Oxygen Flow Rate (L/min) 4 Oxygen Delivery Method Nasal Cannula Weight: 84.1 kg Body Mass Index (BMI) 28.1 Finger Stick Blood Glucose 200 Laboratory Tests Past 24 Hrs WBC 12.7 H EKG showed normal sinus rhythm with LVH. Chest x-ray reviewed and showed pulmonary edema. No evidence of any infiltrate. Assessment/Plan Patient seen and examined independently. Data reviewed. I agree with the above note by the physician printing assistant. 1. Acute hypoxic respiratory failure * Secondary to pulmonary edema. * Need to treat the underlying pulmonary edema. Patient given Lasix and the plan is for dialysis as well. 2. Acute heart failure with preserved ejection fraction * EF previously at 55% echocardiogram on April 08, 2018 * Continue with Lasix but will change her to IV Lasix for now. * Most patient's symptoms are due to the fact that he is advanced kidney disease and as well and the plan is also for dialysis which I think will help with fluid removal. * Will continue with the patient's carvedilol as he was already on that previously. Continue with his isosorbide. * Continue with Zaroxolyn * Patient not a candidate for an HEATHER inhibitor nor angiotensin receptor lesa given his kidney disease 3. Acute kidney injury * Creatinine up to 3.11. Baseline appears to be around 2.55 * Continue to monitor while he is here. 4. Elevated troponin * Patient recently underwent a cardiac catheterization on May 24 that showed patent grafts at that time. * Troponin may be elevated due to the acute strain of his heart failure but also it may given his kidney disease 5. BPH * he is endorsing that with urinary retention and dribbling * Continue with finasteride. Patient also states that he is on Flomax which is not on his home medication reconciliation * Start the Flomax. * Check a postvoid residual to see if the catheter may need to be placed * Follow-up with urology as outpatient 6. DVT prophylaxis with heparin. 7. Neck cyst versus lipoma * Patient will need follow-up with surgery for definitive management. It has been present for a long time and is unchanged, according to the patient. 8. Ventral hernia * Not incarcerated and asymptomatic at this time. * Patient may follow-up with general surgery on an outpatient basis for definitive management. Code Visit Inpatient E AND M: [id number] Init Hosp L3 07/23/18 1713 <Electronically signed by Itz FELIPE> Date Itz FELIPE 07/23/18 1730<Electronically signed by Chris Stark DO> Cosigner Signature: Date (if applicable) Chris Stark DO CC: BARREL LATHE OPERATOR INSIDE-C Wong Berger; MATTEO Bennett; Chris Stark DO Signed EMERGENCY DEPARTMENT Observed: 07/23/2018 Status: F Source: [place] SUMMARY 4:40 PM [facility] REPOSITORY [facility] Medical Records Department [address] [place] [address] Emergency Department Summary 07/23/18 1509 MR#: [id number] Acct: [id number] Name: ANGELINA GIMENEZ Rep #: [id number] : 1950 67 From: Andreia Jeffery MD PCP: SEUN Poe Status: ADM IN - ER Visit Summary Date of Service: 07/23/18 Chief Complaint: Shortness of breath History of Present Illness: The patient is a 67 M presenting with shortness of breath. He states this has been ongoing for the past 2-3 days. It is worsened with exertion and with laying flat. His last dialysis was on Tuesday. He saw his director of education on Tuesday. He states they are trying to take him off dialysis. He feels that he is filling up with fluid. He has been gained 10 pounds over the last several days. He feels fluid overloaded. He states he is only making small amount of urine. He has a history of CHF, COPD, hypertension, hyperlipidemia. He is a smoker. Physical Examination: Vitals are stable. Patient is afebrile. Alert no acute distress. HEENT exam is unremarkable. Neck is supple. Lungs are wheezing diffusely bilaterally. Heart is regular rate and rhythm. Abdomen is soft nontender nondistended. Extremities symmetric edema Skin is warm and dry. No focal neurologic deficit. Remainder of exam is unremarkable. Emergency Department Course and Treatment: Patient was given albuterol, Atrovent aerosol. EKG is sinus rate of 69 with LVH. Chest x-ray shows findings suspicious for interval development of bilateral effusions and pulmonary edema. Cardiomegaly status post sternotomy. CBC shows white count 12.7, hemoglobin 10.4. Sodium 129, potassium 3.0, BUN 121, creatinine 3.11. Troponin 0.064. BNP 2929.3. On reevaluation his pulse ox is 88% on room air. He was put on nasal cannula with improvement. Discussed with nephrology and the hospitalist. Patient will be admitted. Disposition: Admission Impression: Acute on chronic kidney injury, Pulmonary edema This note was generated with [employer] dictation software. It may contain incorrect words, spelling, and punctuation that were not noted in review of the chart prior to signing ED Disposition - Plan for ED Patient: Chief Complaint: Shortness of Breath What to do if you have Problems For any increased pain, shortness of breath, bleeding, nausea or vomiting, chest pain, or any unexpected problems, contact your Primary Care Provider. Call [facility] ([phone]) or report to the closest Emergency Room. Call 911 if necessary. 07/23/18 1640 <Electronically signed by Andreia Jeffery MD> Date Andreia Jeffery MD Cosigner Signature (If Indicated): Date CC: BARREL LATHE OPERATOR INSIDEL[employer]C Wong Berger CBC W/DIFF, AUTOMATED Collected: 07/23/2018 Status: F Source: [place] 3:15 PM [facility] REPOSITORY TYPE CODE TESTS RESULT OUT OF RANGE REFERENCE UNITS LAB L100.1000 4.4-11.0 K/mm3 High WBC 12.7 LAB L100.1200 4.6-6.2 M/mm3 Low RBC 3.42 LAB L100.1300 13.0-16.5 g/dl Low HGB 10.4 LAB L100.1400 40-54 % Low HCT 31.4 LAB L100.1500 80-94 fL Normal MCV 91.8 LAB L100.1600 27.0-32.0 pg Normal MCH 30.4 LAB L100.1700 32-36 g/gl Normal MCHC 33.1 LAB L100.1810 11.6-14.6 % High RDW CV 15.1 LAB L100.1820 35.1-43.9 fl High RDW SD 50.6 LAB L100.1900 150-450 K/mm3 Normal PLT 167 LAB L100.2000 6.2-12.0 fl Normal MPV 10.0 LAB L100.2100 47-70 % High NEUT% 78.8 LAB L100.2200 19-41 % Low LY% 9.3 LAB L100.2300 0-10 % High MONO% 10.7 LAB L100.2400 0-5 % Normal EO% 0.8 LAB L100.2500 0-1 % Normal BASO% 0.2 LAB L100.2550 0.0-0.9 % Normal IM GRAN % 0.200 Result Comment: IG% - Immature Granulocytes (promyelocytes, myelocytes and metamyelocytes) > 1% indicates that a LEFT SHIFT is Present. LAB L100.2620 2.0-7.7 X10 3/uL High Absolute Neut 10.0 LAB L100.2720 0.83-4.51 X10 3/ul Normal Absolute Lymph 1.18 Performed By: #### L100.0100 #### [facility] [address] [place], [address] BASIC METABOLIC Collected: 07/23/2018 Status: F Source: [place] PROFILE (BMP) 3:15 PM [facility] REPOSITORY TYPE CODE TESTS RESULT OUT OF RANGE REFERENCE UNITS LAB L501.0100 74-106 mg/dL Normal GLU 101 Result Comment: Fasting Glucose result from 100 to 125 mg/dL suggests IMPAIRED HOMEOSTASIS per A.D.A. criteria. Please note revised GLUCOSE reference range effective 2017. LAB L501.1000 7-18 mg/dL High alert BUN 121 Result Comment: Critical Result(s) Called at: 15:58:08 07/23/2018 by: Jordana mckeon LAB L501.1100 0.70-1.30 mg/dL CREAT,SERUM High 3.11 Result Comment: The validity of the calculated GFR AND GFRAA in patients over 70 years has not been determined. Clinical correlation is essential. LAB L501.1110 >60 mL/min Low EST GFR 21 Result Comment: Non- GFR Calc LAB L501.1115 >60 mL/min Low EST GFR - AA 26 Result Comment: GFR Calc LAB L501.1255 ml/min Normal Estimated CRCL 22.60 LAB L501.1300 10-20 RATIO High BUN/CRE 38.9 LAB L501.2200 8.5-10 mg/dL Normal .1 CA 8.7 LAB L501.5300 136-14 mmol/L Low 5 NA 129 LAB L501.5600 3.5-5. mmol/L Low 1 K 3.0 LAB L501.5900 98-107 mmol/L Low CL 91 LAB L501.6100 21.0-3 mmol/L Normal 2.0 CO2 24.0 LAB L501.6200 5-15 Normal GAP 14 Performed By: #### L500.2500, L501.4010 #### [facility] [address] [place], [address] TROPONIN-I Collected: 07/23/2018 Status: F Source: [place] 3:15 PM [facility] REPOSITORY TYPE CODE TESTS RESULT OUT OF RANGE REFERENCE UNITS LAB L501.4010 <0.045 ng/mL High 0.064 TROPONIN-I Result Comment: TROPONIN-I EXPECTED VALUES <0.045 Negative 0.045 - 0.590 Consistent with Cardiac Damage > OR = 0.600 Critical Value Not every elevated troponin is indicative of SC. These values should be used with clinical judgement in examining the patient's clinical picture for diagnosis. To establish a diagnosis of SC versus myocardial injury, there must be a demonstrated rise and/or fall in the troponin values, in addition to ischemic symptoms, EKG changes, new regional wall motion abnormality, and/or angiographical evidence. PLEASE NOTE: REFERENCE RANGES EDITED 18 Performed By: #### L500.2500, L501.4010 #### [facility] [address] [place], [address] BNP,B-TYPE NATRIURETIC Collected: 07/23/2018 Status: F Source: [place] PEPTIDE 3:15 PM [facility] REPOSITORY TYPE CODE TESTS RESULT OUT OF RANGE REFERENCE UNITS LAB L503.6620 0-100 pg/mL High B-TYPE 2929.3 ALISSA PEP Performed By: #### L503.6620 #### [facility] [address] [place], [address] CHEST 1 VIEW Observed: 07/23/2018 Status: F Source: [place] (PORTABLE) 3:07 PM [facility] REPOSITORY [facility] Imaging Services [address] [place] [address] Chest 1 View (Portable) MR#: [id number] Acct: [id number] Name: ANGELINA GIMENEZ Rep #: [id number] : 1950 M 67 From: Stephanie Martínez MD PCP: SEUN Poe Status: REG ER Study: Chest 1 View (Portable) Date of Exam: 07/23/18 Exam# [id number] Ordering Dr: Andreia Jeffery MD STUDY: X-RAY CHEST REASON FOR EXAM: Male, 67 years old. Increased shortness of breath worse today TECHNIQUE: Single AP portable view of the chest. COMPARISON: July 05, 2018 chest x-ray FINDINGS: There is a right side central line with the tip in the superior vena cava. Since prior study there is development of bilateral blunting of the costophrenic angle and increased interstitial markings. Sternal cerclage wires are present from a prior sternotomy. Normal mediastinum and justyn. Normal visualized pulmonary arteries. There is atherosclerotic calcification of the aortic arch with tortuosity. There are diffuse degenerative changes of the visualized thoracic spine. Normal visualized ribs, clavicles, and shoulders. There is no demonstrated abnormality of the visualized soft tissue structures of the upper abdomen. RAD/Chest 1 View (Portable) IMPRESSION: Findings are suspicious for interval development of bilateral effusions pulmonary edema. Cardiomegaly status post sternotomy. Electronically Signed: Stephanie Martínez MD at 15:42 EDT Tel , Service support , CC: SEUN Jeffery MD Specialty Manufacturing Supervisor: Signed CAROTID DUPLEX Observed: 07/11/2018 Status: F Source: [place] ULTRASOUND 6:27 PM [facility] REPOSITORY [facility] Cardiovascular Services [address] [place] [address] Carotid Duplex Ultrasound 07/11/18 1335 MR#: [id number] Acct: [id number] Name: ANGELINA GIMENEZ Rep #: [id number] : 1950 67 From: Katherine Lua MD Attending Dr: Chepe Barrientos MD Status: REG CLI Ordering Dr: Chepe Barrientos MD Date: 07/11/18 Location: CVS Sex: M C Admitted: Reason For Study: Carotid bruit Rt. Velocities/BP Lt. Velocities/BP Prox CCA 88.5/13.5 cm/sec. Prox CCA 88.6/17.5 cm/sec. Mid CCA 63.8/11.4 cm/sec. Mid CCA 116.0/18.7 cm/sec. Dist CCA 71.1/9.1 cm/sec. Dist CCA 141.0/11.8 cm/sec. Prox ICA 227.0/41.9 cm/sec. Prox ICA 221.0/40.6 cm/sec. Mid ICA 102.0/19.4 cm/sec. Mid ICA 132.0/30.8 cm/sec. Dist ICA 80.6/21.1 cm/sec. Dist ICA 123.0/22.6 cm/sec. Rt. ICA/CCA = 3.6. Lt. ICA/CCA = 1.9. Prox ECA 186.0/18.3 cm/sec. Prox ECA 141.0/5.7 cm/sec. Rt. Vert. 67.8/19.8 cm/sec. Lt. Vert. 55.8/16.5 cm/sec. Right Extracranial There is heterogeneous, irregular atherosclerotic plaque noted in the right common carotid artery. There is heterogeneous, irregular atherosclerotic plaque noted in the right internal carotid artery. There is heterogeneous, irregular atherosclerotic plaque noted in the right external carotid artery. Antegrade flow is noted in the right vertebral artery. Left Extracranial There is heterogeneous, irregular atherosclerotic plaque noted in the left common carotid artery. There is heterogeneous, irregular atherosclerotic plaque noted in the left internal carotid artery. There is heterogeneous, irregular atherosclerotic plaque noted in the left external carotid artery. Antegrade flow is noted in the left vertebral artery. Procedure Carotid Duplex 66684. Exam performed in department. 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 Moderate disease right external carotid Calcific irregular plague with shadowing at the proximal left internal carotid with >70% stenosis. Mild disease left external carotid Patent and antegrade vertebrals bilaterally Disease progression is noted bilaterally involving the internal carotid arteries since 06/02/2009. Ordering Physician: Chepe Barrientos Referring Physician: Chepe Barrientos Performed By: Cherelle Marrero RVT 07/11/181825 Date Katherine Lua MD CC: SEUN Berger; Chepe Barrientos MD Date Dictated: 07/11/18 1335 Date Transcribed: 07/11/181825 Specialty Manufacturing Supervisor: Signed 12 LEAD ELECTROCARDIOGRAM Observed: 07/06/2018 Status: F Source: [place] 1:38 PM [facility] REPOSITORY [facility] Cardiovascular Services [address] [place] [address] 12 Lead EKG 07/05/181924 MR#: [id number] Acct: [id number] Name: ANGELINA GIMENEZ Rep #: [id number] : 1950 67 From: Mick Rm MD Attending Dr: Status: DEP ER Ordering Dr: Soniya Evangelista MD Date: 07/05/18 Location: ED Sex: M C Admitted: Test Reason : SOB Blood Pressure : / mmHG Vent. Rate : 070 BPM Atrial Rate : 070 BPM P-R Int : 194 ms QRS Dur : 092 ms QT Int : 378 ms P-R-T Axes : -05 063 189 degrees QTc Int : 408 ms Normal sinus rhythm Left ventricular hypertrophy with repolarization abnormality Abnormal ECG Confirmed by MICK RM MD ([id number]), medical transcription editor SHIRA HURD ([id number]) on 07/06/2018 1:38:06 PM Referred By: DANYA Confirmed By:MICK RM MD 07/06/18 1338 Date Mick Rm MD CC: SEUN Berger; Soniya Evangelista MD Signed EMERGENCY DEPARTMENT Observed: 07/06/2018 Status: F Source: [place] SUMMARY 1:10 AM [facility] REPOSITORY [facility] Medical Records Department [address] [place] [address] Emergency Department Summary 07/05/18 1908 MR#: [id number] Acct: [id number] Name: LONANGELINA Dunne Rep #: [id number] : 1950 67 From: Soniya Evangelista MD PCP: SEUN Poe Status: DEP ER - ER Visit Summary Date of Service: 07/05/18 Chief Complaint: Shortness of breath History of Present Illness: The patient is a 67 M who presents for 3-4 days of progressively worsening shortness of breath. Patient was at dialysis today when he had acute worsening of his shortness of breath. He missed the last 30 minutes of dialysis. He currently is feeling better but still mildly short of breath. He was on prednisone for the last 2 days for respiratory issues. Shortness of breath is worse with exertion and laying flat. He has an associated cough. He denies fever, chest pain, abdominal pain, nausea or vomiting, or diarrhea. Patient states he has not had a bowel movement in 4 days and is very constipated, with pressure and straining resulting in mild bleeding. He has discomfort secondary to constipation. Medical history includes coronary artery disease status post CABG, COPD, hypertension, hypercholesterolemia and end-stage renal disease on hemodialysis. Physical Examination: Vital signs: afebrile, hemodynamically stable, no hypoxia on room air General: well nourished, well developed, in no distress Skin: warm, dry, no rash, no pallor, dialysis port in right chest HEENT: normocephalic and atraumatic; PERRL, EOMI, moist mucous membranes Cardiovascular: regular rate and rhythm without murmurs, no peripheral edema, 2+ pulses all distal extremities Respiratory: Mild increased work of breathing, on nasal cannula at 96%, lungs show diffuse expiratory wheezing, no rales or rhonchi Abdominal: Abdomen is soft, nontender with normoactive bowel sounds, no guarding or rebound, no masses MSK: Moves all extremities, no deformities, normal strength Neuro: Awake and alert, oriented 4. No facial droop, sensation and motor function intact and symmetric Test Results: Abnormal Lab Results WBC 17.7 H RBC 4.31 L Hgb 13.0 Hct 40.2 MCV 93.3 MCH 30.2 MCHC 32.3 Clinical Impression(s) from Imaging Studies Chest X-Ray 07/05/18 19:07 IMPRESSION: 1. Borderline cardiomegaly with evidence of prior median sternotomy. This is stable 2. Hemodialysis catheter. 3. No acute pulmonary disease. There is resolution of the left pleural effusion noted on the earlier exam. Electronically Signed: John Bo, at 19:35 EDT Tel [phone], Service support , KUB X-Ray 07/05/18 19:15 IMPRESSION: No bowel obstruction. Constipation. Electronically Signed: Emiliana Alejandro, at 19:49 EDT Tel , Service support , Medications Given Discontinued Medications Albuterol Sulfate (Ventolin Aerosols) 2.5 mg INHALATION Q20M JAIME Stop: 07/05/18 19:56 Last Admin: 07/05/18 19:37 Dose: 2.5 mg Admin: 07/05/18 19:37 Dose: 2.5 mg Admin: 07/05/18 19:20 Dose: 2.5 mg Albuterol/Ipratropium (Duoneb) 3 ml INHALATION X1 ONE Stop: 07/05/18 19:08 Last Admin: 07/05/18 19:20 Dose: 3 ml Prednisone () 60 mg PO X1 ONE Stop: 07/05/18 19:08 Last Admin: 07/05/18 19:40 Dose: 60 mg Emergency Department Course and Treatment: Discussed with patient that we will address his breathing issues first and then constipation. Patient does have diffuse wheezing, and was given a series of breathing treatments and oral prednisone. Chest x-ray was performed showing no sign of pneumonia and no overt fluid overload. Abdominal x-ray was consistent with constipation. EKG showed a sinus rhythm with no ischemia or ectopy. Patient had a leukocytosis of 17.7, which is consistent with the margin is from using prednisone over the last few days. Troponin was mildly elevated in the indeterminate range, but consistent with patient's prior troponin readings and likely due to his end-stage renal disease. Patient also had an elevated BNP which was consistent with chronic elevation when compared to prior readings. On reevaluation patient had complete resolution of his wheezing and stated he felt completely better in terms of the respiratory effort. He still had abdominal discomfort and pressure from the constipation Was offered an enema for his constipation. Patient eventually accepted, and he had a large bowel movement. He stated he felt much better and was ready to go home. He was discharged home and is to follow-up with his doctors, including his urologist to discuss whether his constipation is making it difficult for him to urinate. Treatment Plan: [] Disposition: [] Impression: COPD exacerbation, constipation This note was generated with [employer] dictation software. It may contain incorrect words, spelling, and punctuation that were not noted in review of the chart prior to signing ED Disposition - Plan for ED Patient: Disposition: Home or Assisted Living Chief Complaint: Shortness of Breath Instructions: ED Constipation, ED COPD Flare Prescriptions: Azithromycin [Zithromax Z-Jose] 250 mg PO UD #1 box Prednisone [Deltasone] 40 mg PO DAILY #10 tab Referrals: Wong Berger NP-C [Primary Care Provider] - 3-5 Days if not improving Additional Instructions: Please take the prednisone as prescribed for 5 days. Take the antibiotics as prescribed for the full 5 days even if you feel better before they are complete. Take your breathing treatments at home as needed for wheezing and shortness of breath. If you have any worsening of your condition or any new concerning symptoms, please return immediately to the emergency department for another evaluation. What to do if you have Problems For any increased pain, shortness of breath, bleeding, nausea or vomiting, chest pain, or any unexpected problems, contact your Primary Care Provider. Call [facility] ([phone]) or report to the closest Emergency Room. Call 911 if necessary. 07/06/18 0110 <Electronically signed by Soniya Evangelista MD> Date Soniya Evangelista MD Cosigner Signature (If Indicated): Date CC: SEUN Berger DISCHARGE INSTRUCTION Observed: 07/06/2018 Status: F Source: [place] 12:22 AM [facility] REPOSITORY [facility] Medical Records Department [address] [place] [address] Discharge Instruction 07/05/18 2310 MR#: [id number] Acct: [id number] Name: ANGELINA GIMENEZ Rep #: [id number] : 1950 67 From: Soniya Evangelista MD PCP: SEUN Poe Status: [facility] ER ED Disposition - Plan for ED Patient: Disposition: Home or Assisted Living Chief Complaint: Shortness of Breath Instructions: ED COPD Flare, ED Constipation Prescriptions: Azithromycin [Zithromax Z-Jose] 250 mg PO UD #1 box Prednisone [Deltasone] 40 mg PO DAILY #10 tab Referrals: Wong Berger NP-C [Primary Care Provider] - 3-5 Days if not improving Additional Instructions: Please take the prednisone as prescribed for 5 days. Take the antibiotics as prescribed for the full 5 days even if you feel better before they are complete. Take your breathing treatments at home as needed for wheezing and shortness of breath. If you have any worsening of your condition or any new concerning symptoms, please return immediately to the emergency department for another evaluation. What to do if you have Problems For any increased pain, shortness of breath, bleeding, nausea or vomiting, chest pain, or any unexpected problems, contact your Primary Care Provider. Call [facility] ([phone]) or report to the closest Emergency Room. Call 911 if necessary. 07/06/18 0022 <Electronically signed by Soniya Evangelista MD> Date Soniya Evangelista MD Cosigner Signature (If Indicated): Date CC: BARREL LATHE OPERATOR INSIDE-C Wong Berger TROPONIN-I Collected: 07/05/2018 Status: F Source: [place] 7:30 PM [facility] REPOSITORY TYPE CODE TESTS RESULT OUT OF RANGE REFERENCE UNITS LAB L501.4010 <0.045 ng/mL High 0.091 TROPONIN-I Result Comment: TROPONIN-I EXPECTED VALUES <0.045 Negative 0.045 - 0.590 Consistent with Cardiac Damage > OR = 0.600 Critical Value Not every elevated troponin is indicative of SC. These values should be used with clinical judgement in examining the patient's clinical picture for diagnosis. To establish a diagnosis of SC versus myocardial injury, there must be a demonstrated rise and/or fall in the troponin values, in addition to ischemic symptoms, EKG changes, new regional wall motion abnormality, and/or angiographical evidence. PLEASE NOTE: REFERENCE RANGES EDITED 18 Performed By: #### L501.4010 #### [facility] [place], [address] CBC W/DIFF, AUTOMATED Collected: 07/05/2018 Status: F Source: [place] 7:30 PM [facility] REPOSITORY TYPE CODE TESTS RESULT OUT OF RANGE REFERENCE UNITS LAB L100.1000 4.4-11.0 K/mm3 High WBC 17.7 LAB L100.1200 4.6-6.2 M/mm3 Low RBC 4.31 LAB L100.1300 13.0-16.5 g/dl Normal HGB 13.0 LAB L100.1400 40-54 % Normal HCT 40.2 LAB L100.1500 80-94 fL Normal MCV 93.3 LAB L100.1600 27.0-32.0 pg Normal MCH 30.2 LAB L100.1700 32-36 g/gl Normal MCHC 32.3 LAB L100.1810 11.6-14.6 % High RDW CV 15.3 LAB L100.1820 35.1-43.9 fl High RDW SD 51.8 LAB L100.1900 150-450 K/mm3 Normal PLT 179 LAB L100.2000 6.2-12.0 fl Normal MPV 9.9 LAB L100.2100 47-70 % High NEUT% 85.9 LAB L100.2200 19-41 % Low LY% 13.4 LAB L100.2300 0-10 % Normal MONO% 0.3 LAB L100.2400 0-5 % Normal EO% 0.2 LAB L100.2500 0-1 % Normal BASO% 0.1 LAB L100.2550 0.0-0.9 % Normal IM GRAN % 0.100 Result Comment: IG% - Immature Granulocytes (promyelocytes, myelocytes and metamyelocytes) > 1% indicates that a LEFT SHIFT is Present. LAB L100.2620 2.0-7.7 X10 3/uL High Absolute Neut 15.2 LAB L100.2720 0.83-4.51 X10 3/ul Normal Absolute Lymph 2.37 Performed By: #### L100.0100 #### [facility] [address] [place], [address] BNP,B-TYPE NATRIURETIC Collected: 07/05/2018 Status: F Source: [place] PEPTIDE 7:30 PM [facility] REPOSITORY TYPE CODE TESTS RESULT OUT OF RANGE REFERENCE UNITS LAB L503.6620 0-100 pg/mL High B-TYPE 2393.9 ALISSA PEP Performed By: #### L503.6620 #### [facility] [address] [place], [place], [address] CHEST 1 VIEW Observed: 07/05/2018 Status: F Source: [place] (PORTABLE) 7:08 PM [facility] REPOSITORY [facility] Imaging Services [address] [place] [address] Chest 1 View (Portable) MR#: [id number] Acct: [id number] Name: ANGELINA GIMENEZ Rep #: [id number] : 1950 M 67 From: John Bo DO PCP: SEUN Poe Status: REG ER Study: Chest 1 View (Portable) Date of Exam: 07/05/18 Exam# [id number] Ordering Dr: Soniya Evangelista MD STUDY: X-RAY CHEST REASON FOR EXAM: Male, 67 years old. Chest and abdominal pain. TECHNIQUE: Single AP portable view of the chest. COMPARISON: May 24, 2018. FINDINGS: Stable right jugular hemodialysis catheter. The lungs are hyperexpanded. There is no mass or infiltrate. There is no demonstrated pleural abnormality. Sternal cerclage wires are present from a prior sternotomy. The heart is borderline enlarged. Normal mediastinum and justyn. Normal visualized pulmonary arteries. There is atherosclerotic calcification of the aortic arch with tortuosity. The thoracic spine is obscured by the mediastinum. Normal visualized ribs, clavicles, and shoulders. There is no demonstrated abnormality of the visualized soft tissue structures of the upper abdomen. RAD/Chest 1 View (Portable) IMPRESSION: 1. Borderline cardiomegaly with evidence of prior median sternotomy. This is stable 2. Hemodialysis catheter. 3. No acute pulmonary disease. There is resolution of the left pleural effusion noted on the earlier exam. Electronically Signed: John Bo DO at 19:35 EDT Tel [phone], Service support , CC: BARREL LATHE OPERATOR INSIDE-Izabel Berger; Soniya Evangelista MD Specialty Manufacturing Supervisor: Signed ABDOMEN SINGLE VIEW Observed: 07/05/2018 Status: F Source: [place] (PORTABLE) 7:08 PM [facility] REPOSITORY [facility] Imaging Services [address] [place] [address] Abdomen Single View (Portable) MR#: [id number] Acct: [id number] Name: ANGELINA GIMENEZ Rep #: [id number] : 1950 M 67 From: Emiliana Alejandro MD PCP: SEUN Poe Status: REG ER Study: Abdomen Single View (Portable) Date of Exam: 07/05/18 Exam# [id number] Ordering Dr: Soniya Evangelista MD STUDY: X-RAY - ABDOMEN/PELVIS REASON FOR EXAM: Male, 67 years old. Pain TECHNIQUE: Two AP supine views of the abdomen and pelvis. COMPARISON: None. FINDINGS: There is no bowel obstruction. There is a large amount of stool in the colon, consistent with constipation. The visualized osseous structures are within normal limits. RAD/Abdomen Single View (Portable) IMPRESSION: No bowel obstruction. Constipation. Electronically Signed: Emiliana Alejandro, at 19:49 EDT Tel , Service support , CC: BARREL LATHE OPERATOR INSIDE-C Wong Berger; Soniya Eavngelista MD Specialty Manufacturing Supervisor: Signed CARDIOLOGY VISIT Observed: 06/29/2018 Status: F Source: [place] REPORT 11:45 AM [facility] REPOSITORY [facility] [address] [place] [address] OFFICE VISIT Date of Service: 06/29/18 MR#: [id number] Acct: [id number] Name: YENNI GIMENEZ Rep #: [id number] : 1950 Provider: Chepe Barrientos MD Age/Sex: 67/M Location: [facility] Status: Signed HPI HPI Chief Complaint: Routine f/u Details: YENNI GIMENEZ, is a 67 M who presents to the office today for hospital follow-up. Patient is a history of tobacco abuse, hypertension, hypercholesterolemia, coronary artery disease status post angioplasty and stenting by myself at [facility] many years ago followed by multivessel bypass surgery. Patient is also been struggling with chronic renal insufficiency superimposed on BPH and was supposed to have a prostate procedure by Dr. Zhou. However, the patient develop worsening CHF on top of renal failure and was admitted to [facility] in the beginning of May 2018. The patient underwent right-sided thoracentesis as well as IV diuresis with worsening renal failure. He also underwent repeat left and right heart catheterization which demonstrated severe three-vessel coronary disease and widely patent grafts, as well as moderate pulmonary hypertension with pulmonary pressures in the mid 50s. The patient temporarily required hemodialysis via a right subclavian catheter, and is now here in follow-up. Unfortunately he continues to smoke a few cigarettes per day. Unfortunately my note from the hospital is not available as of today's visit. The patient reports that he is doing much better from a fluid standpoint, and his edema has completely resolved. He still retains some fluid in his abdominal cavity, and apparently was dismissed from urology's office as he is on hemodialysis. According to the patient it appears that his creatinine has improved and his urine function may be improved with prostate surgery. He denies any chest pain or anginal symptoms he is taking and tolerating his medicines well. In our office today blood pressure is 120/50, pulse 60 and regular. His lungs are clear bilaterally, I cannot detect any egophony on the right side, is regular rate and rhythm, normal S1/S2 2 out of 6 holosystolic murmur. No edema. Lipids as of 05/02/18 showed HDL of 59. Intake Vital Signs06/29/18 Height 5 ft 7 in 06/29/18 Weight: 177 lb 06/29/18 Body Mass Index (BMI) 27.7 06/29/18 Blood Pressure 120/50 Intake Visit Reasons: S/P [facility] PCU In Home Aide Required: No Accompanied by: Is patient in pain?: No Allergies irbesartan [From Avapro] Adverse Reaction (Severe, Verified 06/26/18 13:19) Blisters zolpidem [From Ambien] Adverse Reaction (Severe, Verified 06/29/18 11:19) made me go crazy, memory loss Medications Ropinirole HCl [Requip] 1 mg PO QHS 01/28/18 [History Confirmed 06/29/18] Rosuvastatin Calcium [Crestor] 40 mg PO QHS 01/28/18 [History Confirmed 06/29/18] Tamsulosin HCl [Flomax] 0.4 mg PO BID 01/28/18 [History Confirmed 06/29/18] Finasteride [Proscar] 5 mg PO DAILY 04/08/18 [History Confirmed 06/29/18] Albuterol Aerosols [Ventolin Aerosols] 2.5 mg INHALATION Q4H PRN 05/10/18 [History Confirmed 06/29/18] Amlodipine [Norvasc] 5 mg PO DAILY 05/10/18 [History Confirmed 06/29/18] Ferrous Sulfate 325 mg PO BIDCM 05/10/18 [History Confirmed 06/29/18] Sertraline HCl [Zoloft] 50 mg PO DAILY 05/10/18 [History Confirmed 06/29/18] Carvedilol [Coreg (Beta Lesa)] 25 mg PO BID #60 tab 05/13/18 [Rx Confirmed 06/29/18] ALPRAZolam [Xanax] 0.5 mg PO TID PRN PRN #30 tab 05/25/18 [Rx Confirmed 06/29/18] Aspirin E.C. [Ecotrin] 81 mg PO DAILY@0800 tab 05/25/18 [Rx Confirmed 06/29/18] Clopidogrel Bisulfate [Plavix] 75 mg PO DAILY #1 tab 05/25/18 [Rx Confirmed 06/29/18] Isosorbide Mononitrate [Imdur] 30 mg PO DAILY #30 tab 05/26/18 [Rx Confirmed 06/29/18] bumetanide 2 mg tablet 2 mg PO BID tab 06/29/18 [History Confirmed 06/29/18] potassium chloride ER 10 mEq tablet,extended release 10 meq PO .COMPLEX 06/29/18 [History Confirmed 06/29/18] [facility] Medical History History of non-ST elevation myocardial infarction (NSTEMI) (Chronic 01/21/11) Atherosclerotic heart disease of [place] coronary artery without angina pectoris (Chronic) Acute renal failure superimposed on chronic kidney disease (Acute) Diastolic CHF (Acute) HLD (hyperlipidemia) (Chronic) HTN (hypertension) (Chronic) PAD (peripheral artery disease) (Chronic) COPD (chronic obstructive pulmonary disease) (Chronic) Tobacco dependence (Chronic) CKD (chronic kidney disease) (Chronic) Leukocytosis (Chronic) Anemia (Chronic) BPH (benign prostatic hyperplasia) (Chronic) Surgical History History of left heart catheterization (Chronic 01/21/11) S/P dialysis catheter insertion (Acute 05/22/18) History of right and left heart catheterization (Chronic 05/24/18) History of thoracentesis (Acute 05/22/18) Stented coronary artery (Chronic) S/P CABG x 3 (Chronic 01/26/11) Family History Other CAD (coronary artery disease) CVA (cerebral vascular accident) Cancer Hypertension Social History Smoking Status: Current some day smoker ROS Const Const: Positive for fatigue, weakness and other (Still on hemodialysis, but numbers improved. Has abdominal ascites.); negative for body ache, fever(s), headache(s), chills, frequent falls, night sweats, daytime sleepiness, difficulty sleeping, excessive sweating, weight gain, weight loss, increased appetite, poor appetite or anorexia Eyes Eyes: Negative for blind spots, loss of peripheral vision, transient loss of vision, blurry vision, change in vision, double vision, floaters, tunnel vision or other ENT ENT: Negative for headache(s), dizziness, hearing loss, tinnitus, Nosebleed/epistaxis, balance problems, post nasal drip, lip swelling, tongue swelling, bleeding gums, hoarseness, neck pain, dry mouth or other Cardio Chest Pain: No Palpitations: No Edema: Bilateral (None now, wears compression stockings. Abdomen distended but soft.) Muscle aches with walking: Bilateral (Has PAD, had stent in left leg) Resp Respiratory: Positive for SOB with activity and other (He has greatly decreased his smoking); negative for SOB at rest, SOB orthopnea\SOB lying down, Coughing up blood/hemoptysis, chest congestion, pain on inspiration, snoring, stridor, wheezing, crackles or paroxysmal nocturnal dyspnea GI GI: Negative nausea, vomiting, heartburn, constipation, belching, bloating, cramping, vomiting blood/hematemesis, bright, red blood in stools, black,tarry stools, loose stools, Difficulty Swallowing or other : Negative for hematuria, frequent nighttime urination/ nocturia, erectile dysfunction or abnormal vaginal bleeding Musc Musc: Positive for muscle aches/ myalgia (Severe muscle aches after dialysis); negative for balance problems, muscle weakness or joint pain Skin Skin: Negative redness, non-healing lesions, rash, unusual bruising, skin ulcer, wounds, jaundice or other Neuro Neuro: Positive for weakness; negative for headache(s), frequent falls, blurry vision, double vision, dizziness, lightheadedness, near syncope, syncope, orthostatic symptoms, confusion, memory loss, restless legs, vertigo, seizures, lack of coordination or other Fernando Hematologic/Lymphatic: Negative for easy bleeding, easy bruising, enlarged lymph nodes or other Endo Endo: Positive for fatigue; negative for excessive sweating, cold intolerance, heat intolerance, flushing, increased thirst/drinking, increased hunger, hair loss, hair growth or other Psych Psych: Negative for anxiety, depression, thoughts of harming anyone, thoughts of harming yourself, visual hallucinations, panic attacks or audible hallucinations Allergy Allergy/Immunology: Negative for lip swelling, Negative for tongue swelling, Negative for rash, Negative for throat swelling, Negative for hives Cardiology Exam Cardio Heart sounds: S2 normal Murmur: Grade 2/6 and holosystolic Assessment AND Plan 1. Atherosclerotic heart disease of [place] coronary artery without angina pectoris I25.10 2003, JASON to circumflex ; 10/10/2009 tsfer from [facility] to [facility], total of 5 bare metal stents to RCA; CABG X [address] [facility] 01/31/2011 (critical left main and restenosis of RCA stents) Plan 1. Coronary artery disease: No exertional anginal in terms at this time. No indication for any additional testing. He appears to be euvolemic based upon hemodialysis and fluid removal. I recommended that he continue his current medications of amlodipine, aspirin, Bumex, Coreg, Plavix, Imdur. 2. Hyperlipidemia, unspecified hyperlipidemia type E78.5 Plan 2. Hyperlipidemia: His LDL and HDL cholesterol are at goal. Continue Crestor 3. Benign prostatic hyperplasia, unspecified whether lower urinary tract symptoms present N40.0 Plan . 3. BPH: The patient has been dismissed from Dr. Umanzor's office as apparently they felt that he was on dialysis and no longer needed prostate surgery. The patient does not wish to go back to his office and requests consultation with an outside urologist. We will make arrangements for him to be seen by urologist in [place]. I believe the patient may benefit from BPH surgery to assist with obstructive uropathy and hydronephrosis patient will continue hemodialysis until prostate has been addressed 1 where the other. 4. Tobacco dependence F17.200 Plan 4. Tobacco dependence: I had a long and thorough discussion with the patient regarding tobacco abuse, and the patient agrees to quit. He is currently smoking 2-3 cigarettes per day. He used to smoke much more, and had quit for about 4 months prior to this event. 5. Return office in 3 months. This note was generated using a voice recognition system and there may be incorrect words, spelling or punctuation that were not noted when reviewing the office note prior to saving. Plan Detail Other Medications New: Discontinued: Follow Up +3M ([place]oyd) Coding Level of Care Code Off vis,est,level 3 Diagnoses Atherosclerotic heart disease of [place] coronary artery without angina pectoris I25.10 Hyperlipidemia, unspecified hyperlipidemia type E78.5 Benign prostatic hyperplasia, unspecified whether lower urinary tract symptoms present N40.0 Tobacco dependence F17.200 Coding Level of Care Code Off vis,est,level 3 Diagnoses Atherosclerotic heart disease of [place] coronary artery without angina pectoris I25.10 Hyperlipidemia, unspecified hyperlipidemia type E78.5 Benign prostatic hyperplasia, unspecified whether lower urinary tract symptoms present N40.0 Tobacco dependence F17.200 06/29/18 1145 <Electronically signed by Chepe Barrientos MD> Date Chepe Barrientos MD Cosigner Signature: Date (if applicable) CC: SEUN Berger POTASSIUM Collected: 06/23/2018 Status: F Source: [place] 12:35 PM [facility] REPOSITORY Order Comment: CALL RESULTS TO [phone] TYPE CODE TESTS RESULT OUT OF RANGE REFERENCE UNITS LAB L501.5600 3.5-5.1 mmol/L Normal K 3.6 Performed By: #### L501.5600 #### [facility] [address] [place], [address] 12 LEAD ELECTROCARDIOGRAM Observed: 05/29/2018 Status: F Source: [place] 4:01 PM [facility] REPOSITORY [facility] Cardiovascular Services [address] [place] [address] 12 Lead EKG 05/24/18 0503 MR#: [id number] Acct: [id number] Name: YENNI GIMENEZ Rep #: [id number] : 1950 67 From: Mick Rm MD Attending Dr: Robyn Workman DO Status: DIS IN Ordering Dr: Chepe Barrientos MD Date: 05/24/18 Location: [facility] Sex: M C Admitted: 05/15/18 Test Reason : AM EKG Blood Pressure : / mmHG Vent. Rate : 060 BPM Atrial Rate : 060 BPM P-R Int : 188 ms QRS Dur : 106 ms QT Int : 500 ms P-R-T Axes : -16 054 173 degrees QTc Int : 500 ms Normal sinus rhythm Left ventricular hypertrophy with repolarization abnormality Prolonged QT Abnormal ECG When compared with ECG of 17-MAY-2018 05:09, Nonspecific T wave abnormality, worse in Inferior leads Confirmed by MICK RM MD ([id number]), medical transcription editor SHIRA HURD ([id number]) on 05/29/2018 4:00:58 PM Referred By: TERESA Confirmed By:MICK RM MD 05/29/18 1601 Date Mick Rm MD CC: SEUN Berger; Chepe Barrientos MD; Robyn Workman DO Signed DISCHARGE SUMMARY Observed: 05/28/2018 Status: F Source: [place] 4:29 PM [facility] REPOSITORY [facility] Medical Records Department [address] [place] [address] Discharge Summary 05/28/18 1604 MR#: [id number] Acct: [id number] Name: YENNI GIMENEZ Rep #: [id number] : 1950 67 From: Robny Workman DO PCP: SEUN Poe Status: DIS IN Y Location: [place] [address]-1 Discharge Date and Diagnosis Date of Admission: 05/15/18 Date of Discharge: 05/26/18 - Primary Discharge Diagnosis #1 acute on chronic diastolic congestive heart failure- #2 pulmonary hypertension-mild #3 acute hypoxic respiratory failure-secondary to congestive heart failure #4 acute kidney injury on a backdrop of chronic kidney disease stage III-requiring dialysis #5 coronary artery [id number], medication treatment only at this time #6 anxiety disorder #7 probable COPD #8 hypertension #9 generalized debility #10 hypokalemia - Secondary Discharge Diagnosis Chronic Problems HLD (hyperlipidemia) (Chronic) HTN (hypertension) (Chronic) PAD (peripheral artery disease) (Chronic) CAD (coronary artery disease) (Chronic) COPD (chronic obstructive pulmonary disease) (Chronic) Tobacco dependence (Chronic) CKD (chronic kidney disease) (Chronic) Leukocytosis (Chronic) Anemia (Chronic) BPH (benign prostatic hyperplasia) (Chronic) Hospital Course and Treatment Operations: None Procedures: Cardiac catheterization, Dialysis, Thoracentesis, - - Insertion of tunneled hemodialysis catheter Summary of Care Provided: The patient is a 67 year old M was seen in the emergency room with a chief complaint of shortness of breath, he had recently been released from the hospital after being treated for a CHF exacerbation. Evaluation in the emergency room included chest x-ray which showed congestive heart failure, lab work showed a negative troponin, beta natruretic peptide was elevated, creatinine was elevated. Patient was admitted for acute on chronic diastolic congestive heart failure and hypoxic respiratory failure, he required BiPAP to maintain his pulse ox in the emergency room. Patient was initially treated with IV Bumex and attempt to remove fluid, he did not respond to this treatment. Patient was seen in consultation by nephrology, cardiology, and ultimately by pulmonary medicine. Patient underwent a right thoracentesis with removal of 2 L of fluid. Patient had insertion of a tunneled dialysis catheter, and he underwent dialysis, he went for cardiac catheterization and was found to have no need for cardiac intervention. Patient slowly improved during his hospitalization, PT and OT saw the patient during his hospitalization, patient did not desire to go to a prison facility. On 05/26/18, patient was seen and examined felt to be in stable condition for discharge home Discharge Activity: Return to Normal Activity Weight Bearing Status: Full weight bearing Home Medications: Medications to take at Discharge Aspirin [Aspirin, Baby] 81 mg PO DAILY@0800 01/28/18 Ropinirole HCl [Requip] 1 mg PO QHS 01/28/18 Rosuvastatin Calcium [Crestor] 40 mg PO QHS 01/28/18 Tamsulosin HCl [Flomax] 0.4 mg PO BID 01/28/18 Finasteride [Proscar] 5 mg PO DAILY 04/08/18 Albuterol Aerosols [Ventolin Aerosols] 2.5 mg INHALATION Q4H PRN 05/10/18 Amlodipine [Norvasc] 5 mg PO DAILY 05/10/18 Ferrous Sulfate 325 mg PO BIDCM 05/10/18 Sertraline HCl [Zoloft] 50 mg PO DAILY 05/10/18 Carvedilol [Coreg (Beta Lesa)] 25 mg PO BID #60 tab 05/13/18 ALPRAZolam [Xanax] 0.5 mg PO TID PRN PRN #30 tablet 05/25/18 Aspirin E.C. [Ecotrin] 81 mg PO DAILY@0800 tablet 05/25/18 Clopidogrel Bisulfate [Plavix] 75 mg PO DAILY #1 tablet 05/25/18 Losartan Potassium [Cozaar] 25 mg PO DAILY #30 tab 05/25/18 Isosorbide Mononitrate [Imdur] 30 mg PO DAILY #30 tab 05/26/18 Following Prescrptions Were Given to Patient: ALPRAZolam [Xanax] 0.5 mg PO TID PRN PRN #30 tablet PRN Reason: ANXIETY Clopidogrel Bisulfate [Plavix] 75 mg PO DAILY #1 tablet Isosorbide Mononitrate [Imdur] 30 mg PO DAILY #30 tab Losartan Potassium [Cozaar] 25 mg PO DAILY #30 tab Primary Care Physician: Wong Berger NP-C [Primary Care Provider] - Please follow up with your Primary Care Physician in: in 1- 2 weeks Please Follow Up With: dialysis on Tuesday Please Follow Up With: Wong Berger NP-C Disposition: Home Minutes spent on discharge:: 36 Patient Condition:: Stable Medical Necessity - Tobacco Use Smoking Status: Current some day smoker Tobacco Use: Cigarettes Meaningful Use Info Meaningful Use Diagnoses (Choose all that apply): CHF - CHF HEATHER/ARB ordered at discharge?: No Reason HEATHER/ARB not ordered?: Worsening renal dysfunctn Documented LVEF (%): 55 Code Visit Inpatient E AND M: [id number] Disch Hosp 05/28/18 1629 <Electronically signed by Roybn Workman DO> Date Robyn Workman DO Cosigner Signature (if applicable): Date CC: SEUN Berger; Robyn Workman DO Signed DISCHARGE INSTRUCTION Observed: 05/26/2018 Status: F Source: [place] 12:14 PM [facility] REPOSITORY [facility] Medical Records Department [address] [place] [address] Instructions for Home/Discharge Instructions 05/26/18 1211 MR#: [id number] Acct: [id number] Name: YENNI GIMENEZ Rep #: [id number] : 1950 67 From: Robyn Workman DO PCP: SEUN Poe Status: ADM IN - Discharge Diagnoses Current Active Problems: Current Active and Chronic Problems Acute renal failure superimposed on chronic kidney disease (Acute) You will use the following diet at home:: Renal (restricted protein/sodium) Your food should be the consistency of: Regular Your liquids should be the consistency of: Regular/Thin Discharge Activity: Return to Normal Activity Weight Bearing Status: Full weight bearing Allergies/Adverse Reactions: Allergies irbesartan [From Avapro] Adverse Reaction (Verified 05/15/18 20:06) Other zolpidem [From Ambien] Adverse Reaction (Verified 05/15/18 20:06) Other Medications to take at Discharge Aspirin [Aspirin, Baby] 81 mg PO DAILY@0800 01/28/18 Ropinirole HCl [Requip] 1 mg PO QHS 01/28/18 Rosuvastatin Calcium [Crestor] 40 mg PO QHS 01/28/18 Tamsulosin HCl [Flomax] 0.4 mg PO BID 01/28/18 Finasteride [Proscar] 5 mg PO DAILY 04/08/18 Albuterol Aerosols [Ventolin Aerosols] 2.5 mg INHALATION Q4H PRN 05/10/18 Amlodipine [Norvasc] 5 mg PO DAILY 05/10/18 Ferrous Sulfate 325 mg PO BIDCM 05/10/18 Sertraline HCl [Zoloft] 50 mg PO DAILY 05/10/18 Carvedilol [Coreg (Beta Lesa)] 25 mg PO BID #60 tab 05/13/18 ALPRAZolam [Xanax] 0.5 mg PO TID PRN PRN #30 tablet 05/25/18 Aspirin E.C. [Ecotrin] 81 mg PO DAILY@0800 tablet 05/25/18 Clopidogrel Bisulfate [Plavix] 75 mg PO DAILY #1 tablet 05/25/18 Losartan Potassium [Cozaar] 25 mg PO DAILY #30 tab 05/25/18 Isosorbide Mononitrate [Imdur] 30 mg PO DAILY #30 tab 05/26/18 The following prescriptions were given: ALPRAZolam [Xanax] 0.5 mg PO TID PRN PRN #30 tablet PRN Reason: ANXIETY Clopidogrel Bisulfate [Plavix] 75 mg PO DAILY #1 tablet Isosorbide Mononitrate [Imdur] 30 mg PO DAILY #30 tab Losartan Potassium [Cozaar] 25 mg PO DAILY #30 tab Primary Care Physician: Wong Berger NP-C [Primary Care Provider] - Please follow up with your Primary Care Physician in: in 1- 2 weeks Test Results: Test results from this visit will be discussed in further detail at your follow-up appointment, if applicable. Please Follow Up With: dialysis on Tuesday05/26/18 1214 <Electronically signed by Robyn Workman DO> Date Robyn Workman DO CC: SEUN Berger; Amanda iLvingston MD; Sergey Salazar D.O.; Augusto Alaniz M.D.; Arnaldo Mckeon MD DISCHARGE INSTRUCTION Observed: 05/25/2018 Status: F Source: [place] 5:05 PM [facility] REPOSITORY [facility] Medical Records Department [address] [place] [address] Instructions for Home/Discharge Instructions 05/25/18 1656 MR#: [id number] Acct: [id number] Name: YENNI GIMENEZ Rep #: [id number] : 1950 67 From: Robyn Workman DO PCP: SEUN Poe Status: ADM IN - Discharge Diagnoses Current Active Problems: Current Active and Chronic Problems Acute renal failure superimposed on chronic kidney disease (Acute) You will use the following diet at home:: Regular, Other - 1.5 liter per day fluid restriction Your food should be the consistency of: Regular Your liquids should be the consistency of: Regular/Thin Discharge Activity: Return to Normal Activity Allergies/Adverse Reactions: Allergies irbesartan [From Avapro] Adverse Reaction (Verified 05/15/18 20:06) Other zolpidem [From Ambien] Adverse Reaction (Verified 05/15/18 20:06) Other Medications to take at Discharge Aspirin [Aspirin, Baby] 81 mg PO DAILY@0800 01/28/18 Ropinirole HCl [Requip] 1 mg PO QHS 01/28/18 Rosuvastatin Calcium [Crestor] 40 mg PO QHS 01/28/18 Tamsulosin HCl [Flomax] 0.4 mg PO BID 01/28/18 Finasteride [Proscar] 5 mg PO DAILY 04/08/18 Albuterol Aerosols [Ventolin Aerosols] 2.5 mg INHALATION Q4H PRN 05/10/18 Amlodipine [Norvasc] 5 mg PO DAILY 05/10/18 Ferrous Sulfate 325 mg PO BIDCM 05/10/18 Sertraline HCl [Zoloft] 50 mg PO DAILY 05/10/18 Carvedilol [Coreg (Beta Lesa)] 25 mg PO BID #60 tab 05/13/18 Isosorbide Mononitrate [Imdur] 30 mg PO DAILY #30 tab 05/13/18 ALPRAZolam [Xanax] 0.5 mg PO TID PRN PRN #30 tablet 05/25/18 Amlodipine [Norvasc] 10 mg PO DAILY #180 tablet 05/25/18 Aspirin E.C. [Ecotrin] 81 mg PO DAILY@0800 tablet 05/25/18 Clopidogrel Bisulfate [Plavix] 75 mg PO DAILY #1 tablet 05/25/18 Losartan Potassium [Cozaar] 25 mg PO DAILY #30 tab 05/25/18 hydrALAZINE [Apresoline] 100 mg PO TID #180 tablet 05/25/18 The following prescriptions were given: ALPRAZolam [Xanax] 0.5 mg PO TID PRN PRN #30 tablet PRN Reason: ANXIETY Amlodipine [Norvasc] 10 mg PO DAILY #180 tablet Clopidogrel Bisulfate [Plavix] 75 mg PO DAILY #1 tablet Losartan Potassium [Cozaar] 25 mg PO DAILY #30 tab hydrALAZINE [Apresoline] 100 mg PO TID #180 tablet Primary Care Physician: Wong Berger NP-C [Primary Care Provider] - Please follow up with your Primary Care Physician in: in 1- 2 weeks Test Results: Test results from this visit will be discussed in further detail at your follow-up appointment, if applicable. Please Follow Up With: dialysis on Tuesday05/25/18 8706 <Electronically signed by Robyn Workman DO> Date Robyn Workman DO CC: SEUN Berger; Amanda Livingston MD; Sergey Salazar D.O.; Augusto Alaniz M.D.; Arnaldo Mckeon MD BASIC METABOLIC Collected: 05/25/2018 Status: F Source: [place] PROFILE (BMP) 5:25 AM [facility] REPOSITORY TYPE CODE TESTS RESULT OUT OF RANGE REFERENCE UNITS LAB L501.0100 74-106 mg/dL Normal GLU 105 Result Comment: Fasting Glucose result from 100 to 125 mg/dL suggests IMPAIRED HOMEOSTASIS per A.D.A. criteria. Please note revised GLUCOSE reference range effective 2017. LAB L501.1000 7-18 mg/dL High BUN 38 LAB L501.1100 0.70-1.30 mg/dL High CREAT,SERUM 2.55 Result Comment: The validity of the calculated GFR AND GFRAA in patients over 70 years has not been determined. Clinical correlation is essential. LAB L501.1110 >60 mL/min Low EST GFR 27 Result Comment: Non- GFR Calc LAB L501.1115 >60 mL/min Low EST GFR - AA 33 Result Comment: GFR Calc LAB L501.1255 ml/min Normal Estimated CRCL 27.57 LAB L501.1300 10-20 RATIO Normal BUN/CRE 14.9 LAB L501.2200 8.5-10 mg/dL Low .1 CA 8.2 LAB L501.5300 136-14 mmol/L Low 5 NA 135 LAB L501.5600 3.5-5. mmol/L Normal 1 K 4.0 LAB L501.5900 98-107 mmol/L Normal CL 99 LAB L501.6100 21.0-3 mmol/L Normal 2.0 CO2 27.0 LAB L501.6200 5-15 Normal GAP 9 Performed By: #### L500.2500 #### [facility] [place], [place], [id number] BLOOD GASES BY CPS Collected: 05/24/2018 Status: F Source: [place] 9:00 AM [facility] REPOSITORY TYPE CODE TESTS RESULT OUT OF RANGE REFERENCE UNITS LAB L9000.9990 Normal BLD GAS ART TYPE LAB L9001.1110 7.35-7.45 Low pH - 7.29 I-STAT LAB L9001.1210 35-45 mmHg High pCO2 - 47.2 ISTAT LAB L9001.1310 75-100 mmHG Low PO2 59 I-STAT LAB L9001.2300 22-26 mmol/L Normal HCO3 22.6 ISTAT LAB L9001.2400 -2 to +2 mmol/L Low BE ISTAT -4 LAB L9001.2415 mmol/L Normal TOTAL CO2 24 ISTAT LAB L9001.2425 95-99 % Low SO2 ISTAT 87 Performed By: #### L9000.0800 #### [facility] Point of Care [address] [place] [address] [id number] VENOUS BLOOD GAS Collected: 05/24/2018 Status: F Source: [place] 8:54 AM [facility] REPOSITORY TYPE CODE TESTS RESULT OUT OF RANGE REFERENCE UNITS LAB L9000.9990 Normal BLD GAS FER TYPE LAB L9002.1110 7.32-7.42 Normal VBGpH - 7.42 I-STAT LAB L9002.1212 41-51 mmHg Low VBG pCO2 39.9 - ISTA LAB L9002.1310 25-40 mmHg Normal VBG PO2 29 I-STAT LAB L9002.2300 22-26 mmol/L Normal VBG HCO3 26 ISTAT LAB L9002.2400 -1.0-3.5 mmol/L Normal VBG BE 2 ISTAT LAB L9002.2410 50-70 % Normal VBG SO2 58 ISTAT LAB L9002.2415 23-33 mmol/L Normal VBG O2 CT 27 ISTAT Performed By: #### L9000.0810 #### [facility] Point of Care [address] [facility] [address] [place], [place] [id number] VENOUS BLOOD GAS Collected: 05/24/2018 Status: F Source: [place] 8:51 AM [facility] REPOSITORY TYPE CODE TESTS RESULT OUT OF RANGE REFERENCE UNITS LAB L9000.9990 Normal BLD GAS FER TYPE LAB L9002.1110 7.32-7.42 Normal VBGpH - 7.42 I-STAT LAB L9002.1212 41-51 mmHg Low VBG pCO2 39.6 - ISTA LAB L9002.1310 25-40 mmHg Normal VBG PO2 30 I-STAT LAB L9002.2300 22-26 mmol/L Normal VBG HCO3 26 ISTAT LAB L9002.2400 -1.0-3.5 mmol/L Normal VBG BE 1 ISTAT LAB L9002.2410 50-70 % Normal VBG SO2 59 ISTAT LAB L9002.2415 23-33 mmol/L Normal VBG O2 CT 27 ISTAT Performed By: #### L9000.0810 #### [facility] [address] [place], [place] [id number] BASIC METABOLIC Collected: 05/24/2018 Status: F Source: [place] PROFILE (BMP) 5:25 AM [facility] REPOSITORY TYPE CODE TESTS RESULT OUT OF RANGE REFERENCE UNITS LAB L501.0100 74-106 mg/dL Normal GLU 106 Result Comment: Fasting Glucose result from 100 to 125 mg/dL suggests IMPAIRED HOMEOSTASIS per A.D.A. criteria. Please note revised GLUCOSE reference range effective 2017. LAB L501.1000 7-18 mg/dL High BUN 56 LAB L501.1100 0.70-1.30 mg/dL High CREAT,SERUM 2.46 Result Comment: The validity of the calculated GFR AND GFRAA in patients over 70 years has not been determined. Clinical correlation is essential. LAB L501.1110 >60 mL/min Low EST GFR 28 Result Comment: Non- GFR Calc LAB L501.1115 >60 mL/min Low EST GFR - AA 34 Result Comment: GFR Calc LAB L501.1255 ml/min Normal Estimated CRCL 28.58 LAB L501.1300 10-20 RATIO High BUN/CRE 22.8 LAB L501.2200 8.5-10 mg/dL Low .1 CA 7.7 LAB L501.5300 136-14 mmol/L Normal 5 NA 140 LAB L501.5600 3.5-5. mmol/L Normal 1 K 3.9 LAB L501.5900 98-107 mmol/L Normal CL 105 LAB L501.6100 21.0-3 mmol/L Normal 2.0 CO2 25.0 LAB L501.6200 5-15 Normal GAP 10 Performed By: #### L500.2500 #### [facility] [address] [place], [address] CBC W/DIFF, AUTOMATED Collected: 05/24/2018 Status: F Source: [place] 5:25 AM [facility] REPOSITORY TYPE CODE TESTS RESULT OUT OF RANGE REFERENCE UNITS LAB L100.1000 4.4-11.0 K/mm3 Normal WBC 10.1 LAB L100.1200 4.6-6.2 M/mm3 Low RBC 3.13 LAB L100.1300 13.0-16.5 g/dl Low HGB 9.3 LAB L100.1400 40-54 % Low HCT 31.3 LAB L100.1500 80-94 fL High MCV 100.0 LAB L100.1600 27.0-32.0 pg Normal MCH 29.7 LAB L100.1700 32-36 g/gl Low MCHC 29.7 LAB L100.1810 11.6-14.6 % High RDW CV 17.0 LAB L100.1820 35.1-43.9 fl High RDW SD 60.1 LAB L100.1900 150-450 K/mm3 Low PLT 113 LAB L100.2000 6.2-12.0 fl Normal MPV 10.3 LAB L100.2100 47-70 % High NEUT% 76.3 LAB L100.2200 19-41 % Low LY% 10.2 LAB L100.2300 0-10 % High MONO% 10.9 LAB L100.2400 0-5 % Normal EO% 2.0 LAB L100.2500 0-1 % Normal BASO% 0.2 LAB L100.2550 0.0-0.9 % Normal IM GRAN % 0.400 Result Comment: IG% - Immature Granulocytes (promyelocytes, myelocytes and metamyelocytes) > 1% indicates that a LEFT SHIFT is Present. LAB L100.2620 2.0-7.7 X10 3/uL Normal Absolute Neut 7.7 LAB L100.2720 0.83-4.51 X10 3/ul Normal Absolute Lymph 1.03 Performed By: #### L100.0100, L300.3900, L300.4310 #### [facility] [address] [facility] [place], [place], [id number] PROTHROMBIN TIME W/INR Collected: 05/24/2018 Status: F Source: [place] 5:25 AM [facility] REPOSITORY TYPE CODE TESTS RESULT OUT OF RANGE REFERENCE UNITS LAB L300.4150 11.7-14.9 SECONDS Normal PROTIME 14.0 LAB L300.4200 Normal INR 1.1 Performed By: #### L100.0100, L300.3900, L300.4310 #### [facility] [address] [place], [place], [address] PARTIAL THROMBOPLAST Collected: 05/24/2018 Status: F Source: [place] TIME 5:25 AM [facility] REPOSITORY TYPE CODE TESTS RESULT OUT OF RANGE REFERENCE UNITS LAB L300.4310 24.1-36.2 Seconds Normal PTT 29.9 Performed By: #### L100.0100, L300.3900, L300.4310 #### [facility] [address] [place], [address] CHEST 1 VIEW Observed: 05/24/2018 Status: F Source: [place] (PORTABLE) 12:00 AM [facility] REPOSITORY [facility] [place] [address] Chest 1 View (Portable) MR#: [id number] Acct: [id number] Name: YENNI GIMENEZ Rep #: [id number] : 1950 M 67 From: Garland Cano MD PCP: SEUN Poe Status: ADM IN Study: Chest 1 View (Portable) Date of Exam: 05/24/18 Exam# [id number] Ordering Dr: Robyn Workman DO STUDY: X-RAY CHEST REASON FOR EXAM: Male, 67 years old. Shortness of breath TECHNIQUE: 1 view COMPARISON: May 22, 2018 FINDINGS: The large area of consolidation in the right lower lobe noted in the previous examination has resolved. There is no cardiomegaly with mild failure. Small left-sided pleural effusion. Median sternotomy wires. A dialysis catheter in the right internal jugular vein has its tip in the superior vena cava.. Normal visualized thoracic spine. Normal visualized ribs, clavicles, and shoulders. There is no demonstrated abnormality of the visualized soft tissue structures of the upper abdomen. RAD/Chest 1 View (Portable) IMPRESSION: Cardiomegaly with mild failure. Resolved right lower lobe consolidation. A small left-sided effusion. Electronically Signed: Garland Cano, at 6:09 EDT Tel , Service support , CC: SEUN Berger; Robyn Workman DO Specialty Manufacturing Supervisor: Signed BASIC METABOLIC Collected: 05/23/2018 Status: F Source: [place] PROFILE (BMP) 6:00 AM [facility] REPOSITORY TYPE CODE TESTS RESULT OUT OF RANGE REFERENCE UNITS LAB L501.0100 74-106 mg/dL High GLU 138 Result Comment: Fasting Glucose result greater than or equal to 126 mg/dL suggests DIABETES MELLITUS per A.D.A. criteria. Please note revised GLUCOSE reference range effective 2017. LAB L501.1000 7-18 mg/dL High BUN 71 LAB L501.1100 0.70-1.30 mg/dL High CREAT,SERUM 2.41 Result Comment: The validity of the calculated GFR AND GFRAA in patients over 70 years has not been determined. Clinical correlation is essential. LAB L501.1110 >60 mL/min Low EST GFR 29 Result Comment: Non- GFR Calc LAB L501.1115 >60 mL/min Low EST GFR - AA 35 Result Comment: GFR Calc LAB L501.1255 ml/min Normal Estimated CRCL 29.17 LAB L501.1300 10-20 RATIO High BUN/CRE 29.5 LAB L501.2200 8.5-10 mg/dL Low .1 CA 8.4 LAB L501.5300 136-14 mmol/L Normal 5 NA 141 LAB L501.5600 3.5-5. mmol/L Normal 1 K 3.7 LAB L501.5900 98-107 mmol/L Normal CL 105 LAB L501.6100 21.0-3 mmol/L Normal 2.0 CO2 26.0 LAB L501.6200 5-15 Normal GAP 10 Performed By: #### L500.2500 #### [facility] [address] [place], [place] [address], [address] CBC W/DIFF, AUTOMATED Collected: 05/23/2018 Status: F Source: [place] 6:00 AM [facility] REPOSITORY TYPE CODE TESTS RESULT OUT OF RANGE REFERENCE UNITS LAB L100.1000 4.4-11.0 K/mm3 Normal WBC 10.4 LAB L100.1200 4.6-6.2 M/mm3 Low RBC 3.22 LAB L100.1300 13.0-16.5 g/dl Low HGB 9.7 LAB L100.1400 40-54 % Low HCT 31.9 LAB L100.1500 80-94 fL High MCV 99.1 LAB L100.1600 27.0-32.0 pg Normal MCH 30.1 LAB L100.1700 32-36 g/gl Low MCHC 30.4 LAB L100.1810 11.6-14.6 % High RDW CV 17.0 LAB L100.1820 35.1-43.9 fl High RDW SD 59.8 LAB L100.1900 150-450 K/mm3 Normal PLT 192 LAB L100.2000 6.2-12.0 fl Normal MPV 10.6 LAB L100.2100 47-70 % High NEUT% 85.1 LAB L100.2200 19-41 % Low LY% 6.5 LAB L100.2300 0-10 % Normal MONO% 6.6 LAB L100.2400 0-5 % Normal EO% 1.5 LAB L100.2500 0-1 % Normal BASO% 0.1 LAB L100.2550 0.0-0.9 % Normal IM GRAN % 0.200 Result Comment: IG% - Immature Granulocytes (promyelocytes, myelocytes and metamyelocytes) > 1% indicates that a LEFT SHIFT is Present. LAB L100.2620 2.0-7.7 X10 3/uL High Absolute Neut 8.8 LAB L100.2720 0.83-4.51 X10 3/ul Low Absolute Lymph 0.68 Performed By: #### L100.0100 #### [facility] [address] [place], [address] OPERATIVE REPORT Observed: 05/23/2018 Status: F Source: [place] 5:56 AM [facility] REPOSITORY [facility] Medical Records Department [address] [place] [address] Operative Report 05/22/18 1752 MR#: [id number] Acct: [id number] Name: YENNI GIMENEZ Rep #: [id number] : 1950 67 From: Katherine Lua MD PCP: SEUN Poe Status: ADM IN Location: [place] [address] Problem List (1) Acute renal failure superimposed on chronic kidney disease Status: Acute Qualifiers: Acute renal failure type: unspecified Chronic kidney disease stage: stage 5, not on chronic dialysis Qualified Code(s): N17.9 - Acute kidney failure, unspecified; N18.5 - Chronic kidney disease, stage 5 Report of Operation Date of Procedure: 05/22/18 Pre-Operative Diagnosis: Acute cardiopulmonary renal failure Post-Operative Diagnosis: Same Surgery/Procedure Performed:: Right internal jugular 19 cm pre-curved palindrome catheter placement. Reference number [id number] lot #[id number] expiry date 11/19/2022 Description of Surgical Findings:: Timeout and informed consent was obtained. 67-year-old gent was taken the operating room. She was placed upon the table with head of bed elevated to assist with respiration. Ancef 2 g given intravenously preoperatively. The right neck was sterilely prepped and draped. The patient was then slightly placed more level. Ultrasound was performed. The right internal jugular vein was identified however due to the patient's deep respiratory effort there was dramatic movement of the right internal jugular vein. 1% lidocaine mixed 50-50 with 0.5% Marcaine was used as local anesthetic. Total 24 cc was used. Tediously and carefully under ultrasound guidance a micropuncture needle was advanced in the right internal jugular vein and down Seldinger wire technique was placed. Fluoroscopy fortunately demonstrated a micropuncture wire to be in good position. Local was instilled down upon the chest wall. The 19 cm pre-curved palindrome catheter was tunneled from the chest to the neck site. A micropuncture sheath was placed over the wire. This was exchanged out for an 035 J-wire. Serial dilatation was performed. The introducing sheath dilator was placed. The catheter was advanced through the sheath the sheath was split the catheter was positioned at the SVC atrial junction. It aspirated easily. It was secured to the skin with interrupted 3-0 nylon. The counter neck incision was closed with interrupted 5-0 Vicryl subdermal stitches. Steri-Strips and Telfa OpSite dressings applied at the neck. A silver impregnated dressing was placed at the chest exit site with an OpSite dressing. Sponge and instrument and needle counts were reported to the surgeon to be correct. Blood loss was minimal. Specimens none. Drains none. He was taken to the recovery area in satisfactory condition. Stat portable chest x-ray is pending. Katherine Lua M.D., F.A.C.S. 05/23/18 0556 <Electronically signed by Katherine Lua MD> Date Katherine Lua MD CC: SEUN Berger; Amanda Livingston MD; Sergey Salazar D.O.; Augusto Alaniz M.D.; Arnaldo Mckeon MD; Katherine Lua MD Signed HEPATITIS B SURFACE Collected: 05/23/2018 Status: F Source: [place] 12:00 AM [facility] REPOSITORY Order Comment: Comments: can be added on TYPE CODE TESTS RESULT OUT OF RANGE REFERENCE UNITS LAB L3100.0400 Negative Normal HB Negative SURF AG Result Comment: Performed at: [facility] [id number] Laundry Housekeeper: Erlin Palomo PhD, Phone: [phone] Performed By: #### L3100.0390, L3100.0528 #### [facility] (refer to report for specific site) refer to report for address and phone number HEP B SURFACE Collected: 05/23/2018 Status: F Source: [place] ANTIBODIES 12:00 AM [facility] REPOSITORY Order Comment: Comments: can be added on TYPE CODE TESTS RESULT OUT OF RANGE REFERENCE UNITS LAB L3100.0528 . Normal Hep B Non Reactive Surendra AB Result Comment: Non Reactive: Inconsistent with immunity, less than 10 mIU/mL Reactive: Consistent with immunity, greater than 9.9 mIU/mL Performed By: #### L3100.0390, L3100.0528 #### [facility] (refer to report for specific site) refer to report for address and phone number CONSULTATION Observed: 05/22/2018 Status: F Source: [place] 5:52 PM [facility] REPOSITORY [facility] Medical Records Department [address] [place] [address] Consultation 05/22/18 1442 MR#: [id number] Acct: [id number] Name: YENNI GIMENEZ Uzair Rep #: [id number] : 1950 67 From: Tiara Perales PA-C PCP: SEUN Poe Status: ADM IN [facility] ADDENDUM by Katherine Lua MD on 05/22/18 at 1752 Code Visit I have completely reviewed this patient's history and physical and consultation as performed by MATTEO Richard. I concur with her findings. I have been asked to see this patient and to place tunneled hemodialysis catheters to facilitate outpatient management. With family members present I have discussed the increased risk secondary to the patient's medical comorbidities. I have proposed attempted a right internal jugular tunneled hemodialysis catheter placement performed under ultrasound and fluoroscopy guidance. They are aware of the technique, benefits, risks, alternatives. We will proceed today to try to facilitate this patient's management. I very much appreciate the kind opportunity of assisting with his surgical care. I anticipate pursuing this in the operating room under monitored anesthesia care with local anesthetic. The patient is well aware that the degree of anesthesia provided again will be limited secondary to his cardiopulmonary disease. Katherine Lua M.D., F.A.C.S. 05/22/18 1752 <Electronically signed by Katherine Lua MD> Date Katherine Lua MD cc: SEUN Berger; Amanda Livingston MD; Sergey Salazar D.O.; Augusto Alaniz M.D.; Arnaldo Mckeon MD * Signed Problem List (1) Acute renal failure superimposed on chronic kidney disease Status: Acute (2) Diastolic CHF Status: Acute Qualifiers: (3) COPD (chronic obstructive pulmonary disease) Status: Chronic Qualifiers: (4) CKD (chronic kidney disease) Status: Chronic Qualifiers: Reason for Consult Date of Consultation: 05/22/18 Reason for Consultation: Acute on chronic renal failure. In need of tunneled dialysis catheters. History of Present Illness: The patient is a 67 year old M who presented to the ED with increased shortness of breath and feeling of fullness with fluid. Patient has a history of chronic diastolic CHF, COPD, nicotine dependency, M.I., stroke. Patient has a history of CABG x 3 approximately 7 years ago. His last cardiac stent was placed in 2017. Patient is maintained on daily ASA and Plavix. His internal audit director was in [place]. He currently switched to Dr. Barrientos. Cardiology would like to perform a cardiac cath once patient becomes more stable. Patient has had a transthoracic echocardiogram on 04/30 which demonstrated LVEF 55% and left atrium moderately enlarged. Patient has COPD however he does not follow with a audio visual design engineer. He is not currently on oxygen at home. Patient does not follow with a director of education. He has never been on dialysis previously. Patient was hospitalized in January [address] Zhou was consulted at that time for BPH. A Charles catheter was inserted. He has had this catheter ever since. Patient's creatinine has increased from 1.50 to 2.79. Patient's urine output has slowly decreased. Patient was sent for a right thoracentesis in radiology, 1700 cc of fluid was removed. Patient has had multiple hospitalizations for similar symptoms within the last month. Past Medical History Past Medical History (Chronic Problems): Chronic Problems HLD (hyperlipidemia) (Chronic) HTN (hypertension) (Chronic) PAD (peripheral artery disease) (Chronic) CAD (coronary artery disease) (Chronic) COPD (chronic obstructive pulmonary disease) (Chronic) Tobacco dependence (Chronic) CKD (chronic kidney disease) (Chronic) Leukocytosis (Chronic) Anemia (Chronic) BPH (benign prostatic hyperplasia) (Chronic) Allergies irbesartan [From Avapro] Adverse Reaction (Verified 05/15/18 20:06) Other zolpidem [From Ambien] Adverse Reaction (Verified 05/15/18 20:06) Other Home Medications: Ambulatory Orders Medication Instructions Recorded Aspirin [Aspirin, Baby] 81 mg PO DAILY@0800 01/28/18 Surgical History: coronary bypass surgery, tonsillectomy Lives: Spouse/ Significant Other Smoking Status: Current some day smoker Tobacco Use: Cigarettes Alcohol: None Drugs: None - *Family History Maternal History Items: No pertinent history Paternal History Items: No pertinent history Review of Systems Constitutional: Reports: Anorexia, Fatigue HEENT: Denies: Head Aches, Sinus Congestion, Sinus Drainage Cardiovascular: Denies: Chest Pain, Palpitations Respiratory: Reports: Cough, Shortness of Breath, Sputum production Gastrointestinal: Denies: Abdominal Pain, Nausea, Vomiting Genitourinary: Reports: Retention Musculoskeletal: Denies: Joint Pain, Joint Tenderness Skin: Denies: Rash, Wounds Neurological: Denies: Numbness, Tingling, Focal weakness Psychiatric: Reports: Anxiety Hematologic/ Lymphatic: Reports: Anemia, Easy Bruising, Easy Bleeding Patient Problems: Active and Suspected Problems Acute renal failure superimposed on chronic kidney disease (Acute) - Physical Exam General: Alert, Oriented x3, Cooperative HEENT: Atraumatic, PERRLA, EOMI, Normocephalic Neck: Supple, No JVD, Negative Carotid Bruits Lungs: Clear to auscultation, Diminished - bilateral lower lobes Cardiovascular: Regular rate, No murmurs Abdomen: Bowel Sounds Present, Soft, Non Tender Extremities: No edema, Capillary Refill Less than 3 Seconds Skin: No rashes, No breakdown Musculoskeletal: No Tenderness to Palpation of Joints or Extremities Neurological: Neuro grossly intact Psych/Mental Status: Normal Affect, Appropriate Vital Signs Temp Pulse Resp BP Pulse Ox 97.6 F L 75 20 H 147/64 H 96 05/22/18 12:10 05/22/18 12:34 05/22/18 12:34 05/22/18 12:10 05/22/18 12:34 Oxygen Flow Rate (L/min) 4 Oxygen Delivery Method Nasal Cannula Weight: 202 lb 6.15 oz Body Mass Index (BMI) 29.2 Intake and Output for Last 24 Hours Intake Total 576.6 / 576.6 650 / 650 30 / 30 Output Total 475 / 475 275 / 275 125 / 125 Balance 101.6 / 101.6 375 / 375 -95 / -95 Laboratory Tests Past 24 Hrs PT 12.9 INR 1.0 APTT 31.1 Sodium 137 Potassium 3.7 Chloride 101 Carbon Dioxide 23.0 Anion Gap 13 Assessment/Plan All Active Problems Acute renal failure superimposed on chronic kidney disease (Acute) Acute respiratory failure with hypoxia (Acute) Diastolic CHF (Acute) I have been consulted in conjunction with Dr. Lua Impression: Acute on chronic renal failure. In need of tunneled dialysis catheters. Chronic diastolic CHF. COPD. Plan: Patient was discussed with Dr. Lua. Dr. Lua will plan to perform a right chest tunneled dialysis catheters. Procedure details, risks and benefits have been explained. Patient and his daughter have had the opportunity to ask and have questions answered. Patient verbally understands and agrees with the plan. Thank you for allowing me to participate in this patient's care. My recommendations will be available via medical records. Code Visit Office Visits / Consults: [id number] IP Consult L3 05/22/18 1544 <Electronically signed by Tiara Perales PA-C> Date Tiara Perales PA-C Cosigner Signature (if applicable): Date CC: BARREL LATHE OPERATOR INSIDE-C Wong Berger; Amanda Livingston MD; Sergey Salazar D.O.; Augusto Alaniz M.D.; Arnaldo Mckeon MD Signed CHEST 1 VIEW Observed: 05/22/2018 Status: F Source: [place] (PORTABLE) 5:14 PM [facility] REPOSITORY [facility] Imaging Services [address] [place] [address] Chest 1 View (Portable) MR#: [id number] Acct: [id number] Name: YENNI GIMENEZ Rep #: [id number] : 1950 M 67 From: Kamari Tucker MD PCP: SEUN Poe Status: ADM IN Study: Chest 1 View (Portable) Date of Exam: 05/22/18 Exam# [id number] Ordering Dr: Katherine Lua MD STUDY: X-RAY CHEST REASON FOR EXAM: Male, 67 years old. Line placement TECHNIQUE: Single AP portable view of the chest. COMPARISON: Earlier the same day FINDINGS: Central catheter on the right extends to the lower superior vena cava. There worsening lower lung opacities with consolidation and moderate pleural effusions. Sternal cerclage wires are present from a prior sternotomy. There is cardiac enlargement. Normal mediastinum and justyn. Normal visualized pulmonary arteries. Normal visualized aortic arch and descending thoracic aorta. Normal visualized thoracic spine. Normal visualized ribs, clavicles, and shoulders. There is no demonstrated abnormality of the visualized soft tissue structures of the upper abdomen. RAD/Chest 1 View (Portable) IMPRESSION: Central catheter placement. No pneumothorax. Increasing lower lung infiltrates or edema and pleural effusions. Electronically Signed: Kamari Tucker MD at 19:20 EDT , Service support , CC: SEUN Berger; Katherine Lua MD Specialty Manufacturing Supervisor: Signed 12 LEAD ELECTROCARDIOGRAM Observed: 05/22/2018 Status: F Source: [place] 3:56 PM [facility] REPOSITORY [facility] Cardiovascular Services [address] [place] [address] 12 Lead EKG 05/17/18 0509 MR#: [id number] Acct: [id number] Name: YENNI GIMENEZ Rep #: [id number] : 1950 67 From: Arnaldo Mckeon MD Attending Dr: Robyn Workman DO Status: ADM IN Ordering Dr: Arnaldo Mckeon MD Date: 05/17/18 Location: [facility] Sex: M C Admitted: 05/15/18 Test Reason : AM EKG Blood Pressure : / mmHG Vent. Rate : 063 BPM Atrial Rate : 063 BPM P-R Int : 176 ms QRS Dur : 098 ms QT Int : 470 ms P-R-T Axes : -03 081 141 degrees QTc Int : 480 ms Normal sinus rhythm with sinus arrhythmia Nonspecific ST and T wave abnormality Prolonged QT Abnormal ECG Confirmed by LINDA MONTENEGRO, ARNALDO ([id number]), medical transcription editor SHIRA HURD ([id number]) on 05/22/2018 3:55:47 PM Referred By: [facility] Confirmed By:ARNALDO MCKEON MD 05/22/18 1555 Date Arnaldo Mckeon MD CC: SEUN Berger; Robyn Workman DO; Arnaldo Mckeon MD Signed CHEST 1 VIEW Observed: 05/22/2018 Status: F Source: [place] 12:00 PM [facility] REPOSITORY [facility] Imaging Services [address] [place] [address] Chest 1 View MR#: [id number] Acct: [id number] Name: YENNI GIMENEZ Rep #: [id number] : 1950 M 67 From: Katherine Warren MD PCP: SUEN Poe Status: ADM IN Study: Chest 1 View Date of Exam: 05/22/18 Exam# [id number] Ordering Dr: Katherine Warren MD STUDY: X-RAY CHEST REASON FOR EXAM: Male, 67 years old. Right thoracentesis, check for pneumothorax. TECHNIQUE: Chest AP upright exhalation view status post right thoracentesis. COMPARISON: Chest 05/21/2018. FINDINGS: EKG wires overlie chest. The lungs appear fairly well expanded without large gross pneumothorax suggested. Mild diffuse left greater right bibasal opacities are seen consistent with pleural fluid and atelectasis, improved especially in the right base. Normal size heart for projection is visualized. Stable appearing mediastinum and justyn. Moderate increased visualized pulmonary arteries. Stable visualized heavily calcified aortic arch and descending thoracic aorta. Normal visualized thoracic spine. Normal visualized ribs, clavicles, and shoulders. There is no demonstrated abnormality of the visualized soft tissue structures of the upper abdomen. No subdiaphragmatic free air seen grossly. No change sternal wires or faintly seen within likely cerclage wire projecting over the midthoracic spine. RAD/Chest 1 View IMPRESSION: No pneumothorax identified status post right thoracentesis. Decreased right pleural effusion. Moderate CHF/fluid overload. Electronically Signed: Katherine Warren, at 13:35 EDT Tel , Service support , CC: SEUN Berger; Katherine Warren MD Specialty Manufacturing Supervisor: Signed CHEST 1 VIEW Observed: 05/22/2018 Status: F Source: [place] 11:44 AM [facility] REPOSITORY [facility] Imaging Services [address] [place] [address] Chest 1 View MR#: [id number] Acct: [id number] Name: YENNI GIMENEZ Rep #: [id number] : 1950 M 67 From: Katherine Warren MD PCP: SEUN Poe Status: ADM IN Study: Chest 1 View Date of Exam: 05/22/18 Exam# [id number] Ordering Dr: Katherine Warren MD STUDY: X-RAY CHEST REASON FOR EXAM: Male, 67 years old. Right thoracentesis, check for pneumothorax. TECHNIQUE: Chest AP upright inspiration view status post right thoracentesis. COMPARISON: Chest 05/21/2018. FINDINGS: EKG wires overlie chest. The lungs appear fairly well expanded without large gross pneumothorax suggested. Mild diffuse left greater right bibasal opacities are seen consistent with pleural fluid and atelectasis, improved especially in the right base. Normal size heart for projection is visualized. Stable appearing mediastinum and justyn. Moderate increased visualized pulmonary arteries. Stable visualized heavily calcified aortic arch and descending thoracic aorta. Normal visualized thoracic spine. Normal visualized ribs, clavicles, and shoulders. There is no demonstrated abnormality of the visualized soft tissue structures of the upper abdomen. No subdiaphragmatic free air seen grossly. No change sternal wires, mediastinal/pericardial surgical clips or faintly coronary artery suture markers identified. RAD/Chest 1 View IMPRESSION: No pneumothorax identified status post right thoracentesis. Decreased right pleural effusion. Moderate CHF/fluid overload. Electronically Signed: Katherine Warren, at 13:34 EDT Tel , Service support , CC: SEUN Berger; Katherine Warren MD Specialty Manufacturing Supervisor: Signed PROTHROMBIN TIME W/INR Collected: 05/22/2018 Status: F Source: [place] 7:54 AM [facility] REPOSITORY TYPE CODE TESTS RESULT OUT OF RANGE REFERENCE UNITS LAB L300.4150 11.7-14.9 SECONDS Normal PROTIME 12.9 LAB L300.4200 Normal INR 1.0 Performed By: #### L300.3900, L300.4310 #### [facility] [address] [place], [place], [address] PARTIAL THROMBOPLAST Collected: 05/22/2018 Status: F Source: [place] TIME 7:54 AM [facility] REPOSITORY TYPE CODE TESTS RESULT OUT OF RANGE REFERENCE UNITS LAB L300.4310 24.1-36.2 Seconds Normal PTT 31.1 Performed By: #### L300.3900, L300.4310 #### [facility] [address] [place], [place], [address] BASIC METABOLIC Collected: 05/22/2018 Status: F Source: [place] PROFILE (BMP) 5:20 AM [facility] REPOSITORY TYPE CODE TESTS RESULT OUT OF RANGE REFERENCE UNITS LAB L501.0100 74-106 mg/dL High GLU 108 Result Comment: Fasting Glucose result from 100 to 125 mg/dL suggests IMPAIRED HOMEOSTASIS per A.D.A. criteria. Please note revised GLUCOSE reference range effective 2017. LAB L501.1000 7-18 mg/dL High BUN 68 LAB L501.1100 0.70-1.30 mg/dL High CREAT,SERUM 2.79 Result Comment: The validity of the calculated GFR AND GFRAA in patients over 70 years has not been determined. Clinical correlation is essential. LAB L501.1110 >60 mL/min Low EST GFR 24 Result Comment: Non- GFR Calc LAB L501.1115 >60 mL/min Low EST GFR - AA 29 Result Comment: GFR Calc LAB L501.1255 ml/min Normal Estimated CRCL 25.20 LAB L501.1300 10-20 RATIO High BUN/CRE 24.4 LAB L501.2200 8.5-10 mg/dL Normal .1 CA 8.6 LAB L501.5300 136-14 mmol/L Normal 5 NA 137 LAB L501.5600 3.5-5. mmol/L Normal 1 K 3.7 LAB L501.5900 98-107 mmol/L Normal CL 101 LAB L501.6100 21.0-3 mmol/L Normal 2.0 CO2 23.0 LAB L501.6200 5-15 Normal GAP 13 Performed By: #### L500.2500 #### [facility] [address] [place], [address] CHEST 1 VIEW Observed: 05/21/2018 Status: F Source: EDDIE (PORTABLE) 1:32 PM [facility] REPOSITORY [facility] Imaging Services [address] [place] [address] Chest 1 View (Portable) MR#: [id number] Acct: [id number] Name: YENNI GIMENEZ Rep #: [id number] : 1950 M 67 From: Ilan Arriaza MD PCP: SEUN Poe Status: ADM IN Study: Chest 1 View (Portable) Date of Exam: 05/21/18 Exam# [id number] Ordering Dr: Florida Addison MD STUDY: X-RAY CHEST REASON FOR EXAM: Male, 67 years old. Shortness of breath and CHF exacerbation TECHNIQUE: Single view of the chest was obtained COMPARISON: May 15, 2018 chest radiograph FINDINGS: The small to moderate-sized right-sided pleural effusion. Small left-sided pleural effusion. Bibasilar airspace opacities and bilateral pulmonary edema with cardiomegaly. Midline sternotomy wires. Vascular calcifications. No pneumothorax Changes in the thoracic spine. IMPRESSION: Bilateral pulmonary edema and cardiomegaly with moderate right-sided and small left sided pleural effusion and patchy bibasilar airspace opacities Electronically Signed: Ilan Arriaza, at 15:06 EDT Tel , Service support , RAD/Chest 1 View (Portable) CC: SEUN Berger; Florida Addison MD Specialty Manufacturing Supervisor: Signed CONSULTATION Observed: 05/21/2018 Status: F Source: EDDIE 10:01 AM [facility] REPOSITORY [facility] Medical Records Department [address] [place] [address] Consultation 05/21/180 MR#: [id number] Acct: [id number] Name: YENNI GIMENEZ Rep #: [id number] : 1950 67 From: Sergey Salazar PCP: SEUN Poe Status: ADM IN Y Location: [place] [address] Reason for Consult Date of Consultation: 05/21/18 Reason for Consultation: Worsening respiratory status, need for thoracentesis History of Present Illness: The patient is a 67-year-old male, with a history as outlined below, who initially presented to the emergency department on May 16 with rather acute onset of shortness of breath. The patient had just been admitted to the hospital May 10-. During that hospitalization he was treated for decompensated heart failure and acute kidney injury. The patient was admitted to the hospital and has been medically managed for acute on chronic diastolic mediated heart failure. Attempts to volume optimize the patient with a continuous Bumex infusion led to the development of worsening renal insufficiency. The patient is currently overall net -3.3 L for the admission. He had a drop in his urine output on May 20, which prompted a consultation to be placed to nephrology. They felt the etiology for the patient's acute kidney insult was likely the consequence of probable ATN from contrast exposure along with prerenal from diuresis. The patient has been utilizing BiPAP 16/7 cm of water with an FiO2 of 35%, intimately throughout the day and routinely at night. CTA chest revealed no evidence for PE but did reveal bilateral pleural effusions, right greater than left along with associated compressive atelectasis. The patient reports the presence of shortness of breath and a mildly productive cough. Past Medical History Past Medical History (Chronic Problems): Chronic Problems HLD (hyperlipidemia) (Chronic) HTN (hypertension) (Chronic) PAD (peripheral artery disease) (Chronic) CAD (coronary artery disease) (Chronic) COPD (chronic obstructive pulmonary disease) (Chronic) Tobacco dependence (Chronic) CKD (chronic kidney disease) (Chronic) Leukocytosis (Chronic) Anemia (Chronic) BPH (benign prostatic hyperplasia) (Chronic) Allergies irbesartan [From Avapro] Adverse Reaction (Verified 05/15/18 20:06) Other zolpidem [From Ambien] Adverse Reaction (Verified 05/15/18 20:06) Other Home Medications: Ambulatory Orders Medication Instructions Recorded Aspirin [Aspirin, Baby] 81 mg PO DAILY@0800 01/28/18 Surgical History: coronary bypass surgery, tonsillectomy Lives: Spouse/ Significant Other Smoking Status: Current some day smoker Tobacco Use: Cigarettes Alcohol: None Drugs: None - *Family History Maternal History Items: No pertinent history Paternal History Items: No pertinent history Review of Systems Constitutional: Reports: Weight Change. Denies: Chills, Fever Eyes: Denies: Blurred vision, Double vision HEENT: Denies: Head Aches, Sinus Congestion, Sinus Drainage Cardiovascular: Reports: Edema. Denies: Chest Pain, Palpitations Respiratory: Reports: Cough, Shortness of Breath Gastrointestinal: Denies: Abdominal Pain, Nausea, Vomiting Genitourinary: Denies: Dysuria Musculoskeletal: Denies: Joint Pain, Joint Tenderness Skin: Denies: Rash, Wounds Neurological: Denies: Numbness, Tingling, Focal weakness Psychiatric: Denies: Anxiety, Depression, Homicidal Ideations, Suicidal Ideations Hematologic/ Lymphatic: Reports: Anemia Patient Problems: Active and Suspected Problems Acute renal failure superimposed on chronic kidney disease (Acute) Objective: The patient's most recent lab work, culture data and imaging studies have all been personally reviewed. - Physical Exam General: Alert, Cooperative, No apparent distress, - - Tolerating BiPAP currently HEENT: Atraumatic, PERRLA, Normocephalic Oral: Dry Mucosa Neck: Supple, No Nodes, Trachea Midline Lungs: No rhonchi, No wheeze, No rales, Diminished - R>L, - - There is dullness to percussion of the right lung base. Cardiovascular: Regular rate, Regular Rhythm, Normal S1, Normal S2, No murmurs Abdomen: Bowel Sounds Present, Soft, Non Tender, Obese Extremities: No clubbing, No cyanosis, Edema - B/L LE Skin: No breakdown Musculoskeletal: No Tenderness to Palpation of Joints or Extremities Lymphatic: No Cervical, Supraclavicular, or Inguinal Adenopathy Neurological: Neuro grossly intact Psych/Mental Status: Flat Affect Vital Signs Temp Pulse Resp BP Pulse Ox 99.1 F 55 L 19 H 145/60 H 98 05/21/18 03:00 05/21/18 06:55 05/21/18 05:23 05/21/18 03:00 05/21/18 05:23 Oxygen Flow Rate (L/min) 3 Oxygen Delivery Method Bi-pap Weight: 197 lb Body Mass Index (BMI) 29.2 Intake and Output for Last 24 Hours Intake Total 697.7 / 697.7 576.6 / 576.6 50 / 50 Output Total 1175 / 1175 475 / 475 100 / 100 Balance -477.3 / -477.3 101.6 / 101.6 -50 / -50 Laboratory Tests Past 24 Hrs WBC 10.0 RBC 3.31 L Hgb 9.7 L Hct 32.8 L MCV 99.1 H Clinical Impression(s) from Imaging Studies Chest X-Ray 05/15/18 20:08 IMPRESSION: COPD with superimposed mild pulmonary congestion with bilateral effusions and bibasilar atelectasis Electronically Signed: Pb Lancaster MD at 20:32 EDT , Service support , Chest CTA 05/18/18 20:37 IMPRESSION: No evidence for PE. Bilateral pleural effusions worse on the right. Bilateral lower lobe atelectasis worse on the right. Atelectasis or infiltrate in the anterior segment right upper lobe and right middle lobe. Electronically Signed: Rogelio Robertson MD at 22:15 EDT , Service support , Chest Ultrasound 05/19/18 09:48 Assessment/Plan All Active Problems Acute renal failure superimposed on chronic kidney disease (Acute) Acute respiratory failure with hypoxia (Acute) Diastolic CHF (Acute) RECOMMENDATIONS: 1. Continue current medical management with attempts at volume optimization, likely anticipating the need for dialysis. 2. Given the nonemergent nature of the requested thoracentesis, I am not certain that radiology will perform such procedure given that the patient is on Plavix. 3. Continue BiPAP therapy as needed. 4. Continue scheduled bronchodilators. Okay to discontinue Mucomyst from my perspective. IMPRESSIONS: 1. Acute hypoxemic respiratory failure secondary to decompensated heart failure with evidence of bilateral pleural effusions Recommend continued medical optimization of the patient's underlying heart failure. At the present time, there is no acute emergent indication for thoracentesis. Additionally, given that the patient is currently receiving Plavix, I do not know that radiology will feel comfortable with performing an ultrasound-guided thoracentesis tomorrow. While drainage of the patient's pleural effusion may provide some temporary symptomatic relief, it will not address his underlying issue causing the effusion in the first place. Would recommend formulating a plan regarding the need for dialysis for further volume optimization. 2. Presumptive COPD of unknown severity Continue scheduled bronchodilators as ordered. I see no indication for the use of Mucomyst at this time. 3. Acute kidney injury Nephrology is following. Clinical concern for the development of ATN following contrast administration in combination with prerenal azotemia that developed as a consequence of diuresis. The patient may require eventual initiation of dialysis to assist with volume optimization. 4. History of tobacco dependence/coronary artery disease/hypertension/hyperlipidemia/depression Complicates care, management, recovery and prognosis. Continue home medications as indicated. This note was generated with [employer] dictation software. It may contain incorrect words, spelling, and punctuation that were not noted in checking the note before signing. Code Visit Inpatient E AND M: 61429 Init Hosp L3 05/21/18 1001 <Electronically signed by Sergey Salzaar DO> Date Sergey Salazar DO Cosigner Signature (if applicable): Date CC: SEUN Berger; Amanda Livingston MD; Sergey Salazar D.O.; Arnaldo Mckeon MD Signed CBC-COMPLETE BLOOD CNT Collected: 05/21/2018 Status: F Source: EDDIE NO DIFF 5:40 AM [facility] REPOSITORY TYPE CODE TESTS RESULT OUT OF RANGE REFERENCE UNITS LAB L100.1000 4.4-11.0 K/mm3 Normal WBC 10.0 LAB L100.1200 4.6-6.2 M/mm3 Low RBC 3.31 LAB L100.1300 13.0-16.5 g/dl Low HGB 9.7 LAB L100.1400 40-54 % Low HCT 32.8 LAB L100.1500 80-94 fL High MCV 99.1 LAB L100.1600 27.0-32.0 pg Normal MCH 29.3 LAB L100.1700 32-36 g/gl Low MCHC 29.6 LAB L100.1810 11.6-14.6 % High RDW CV 17.8 LAB L100.1820 35.1-43.9 fl High RDW SD 64.8 LAB L100.1900 150-450 K/mm3 Normal PLT 193 LAB L100.2000 6.2-12.0 fl Normal MPV 9.5 Performed By: #### L100.0500 #### [facility] [address] [place], [address] BASIC METABOLIC Collected: 05/21/2018 Status: F Source: [place] PROFILE ([facility]) 5:40 AM [facility] REPOSITORY TYPE CODE TESTS RESULT OUT OF RANGE REFERENCE UNITS LAB L501.0100 74-106 mg/dL High GLU 140 Result Comment: Fasting Glucose result greater than or equal to 126 mg/dL suggests DIABETES MELLITUS per A.D.A. criteria. Please note revised GLUCOSE reference range effective 2017. LAB L501.1000 7-18 mg/dL High BUN 55 LAB L501.1100 0.70-1.30 mg/dL High CREAT,SERUM 2.36 Result Comment: The validity of the calculated GFR AND GFRAA in patients over 70 years has not been determined. Clinical correlation is essential. LAB L501.1110 >60 mL/min Low EST GFR 30 Result Comment: Non- GFR Calc LAB L501.1115 >60 mL/min Low EST GFR - AA 36 Result Comment: GFR Calc LAB L501.1255 ml/min Normal Estimated CRCL 29.79 LAB L501.1300 10-20 RATIO High BUN/CRE 23.3 LAB L501.2200 8.5-10 mg/dL Normal .1 CA 8.5 LAB L501.5300 136-14 mmol/L Normal 5 NA 140 LAB L501.5600 3.5-5. mmol/L Normal 1 K 3.5 LAB L501.5900 98-107 mmol/L Normal CL 103 LAB L501.6100 21.0-3 mmol/L Normal 2.0 CO2 26.0 LAB L501.6200 5-15 Normal GAP 11 Performed By: #### L500.2500 #### [facility] [address] [place], [address] CONSULTATION Observed: 05/20/2018 Status: F Source: [place] 7:17 PM [facility] REPOSITORY [facility] Medical Records Department [address] [place] [address] Consultation 05/20/18 1903 MR#: [id number] Acct: [id number] Name: YENNI GIMENEZ Rep #: [id number] : 1950 67 From: Amanda Livingston MD PCP: SEUN Poe Status: ADM IN Y Location: [place] [address] Problem List (1) Acute renal failure superimposed on chronic kidney disease Status: Acute Consultation - Renal PCP/ Referring MD: Requesting physician: [] Primary care physician: SEUN Poe - History of Present Illness History of Present Illness: The patient is a 67 year old M PMH of diastolic heart failure. Patient presented with CHF exacerbation on 05/15 Patient has been on bumex drip 2 mg/hour and metolazone . Patient's breathing improved but remains SOB on 4l/m Leg edema is still there but improved Patient has CT angio on 05/18 to rule out PE. PE was negative. Patient has B/L pleural effusion R>L Renal team was consulted for DAI on CKD with worsening kidney function Patient UOP dropped today. Metolazone was stopped today. Still on Bumex drip No NSAIDs use ROS: 12 systems review is negative except for SOB and leg edema [] - Allergies Allergies: Allergies irbesartan [From Avapro] Adverse Reaction (Verified 05/15/18 20:06) Other zolpidem [From Ambien] Adverse Reaction (Verified 05/15/18 20:06) Other - Current Medications Current Medications: Current Medications Acetaminophen (Tylenol) 650 mg PO Q6H PRN PRN PRN Reason: Non-cardiac pain (mod-severe) Last Admin: 05/18/18 04:09 Dose: 650 mg Acetylcysteine (Mucomyst) 800 mg INHALATION Q6H.RT [facility] Last Admin: 05/20/18 06:47 Dose: 800 mg Albuterol Sulfate (Ventolin Aerosols) 2.5 mg INHALATION Q4H PRN PRN PRN Reason: SHORTNESS OF BREATH Last Admin: 05/18/18 16:52 Dose: 2.5 mg Albuterol/Ipratropium (Duoneb) 3 ml INHALATION Q6H.RT [facility] Last Admin: 05/20/18 12:51 Dose: 3 ml Alprazolam (Xanax) 0.5 mg PO TID PRN PRN PRN Reason: ANXIETY Last Admin: 05/19/18 21:31 Dose: 0.5 mg Amlodipine Besylate (Norvasc) 10 mg PO DAILY [facility] Last Admin: 05/20/18 09:19 Dose: 10 mg Aspirin (Ecotrin) 81 mg PO DAILY@0800 [facility] Last Admin: 05/20/18 09:19 Dose: 81 mg Atorvastatin Calcium (Lipitor) 80 mg PO QHS [facility] Last Admin: 05/19/18 21:31 Dose: 80 mg Carvedilol (Coreg) 25 mg PO BID [facility] Last Admin: 05/20/18 09:19 Dose: 25 mg Clopidogrel Bisulfate (Plavix) 75 mg PO DAILY [facility] Last Admin: 05/20/18 09:20 Dose: 75 mg Ferrous Sulfate (Ferrous Sulfate) 325 mg PO BIDCM [facility] Last Admin: 05/20/18 16:52 Dose: Not Given Finasteride (Proscar) 5 mg PO DAILY [facility] Last Admin: 05/20/18 09:20 Dose: 5 mg Heparin Sodium (Porcine) (Heparin Na) 5,000 unit SC Q12 [facility] Last Admin: 05/20/18 09:20 Dose: Not Given Hydralazine HCl (Apresoline) 100 mg PO TID [facility] Last Admin: 05/20/18 13:23 Dose: 100 mg Bumetanide 25 mg/ (Miscellaneous Information) 100 mls @ 2 mls/hr CONT INF .Q50H [facility] PRN Reason: 0.5 MG/HR Last Admin: 05/19/18 09:30 Dose: 2 mls/hr Isosorbide Mononitrate (Imdur) 60 mg PO DAILY [facility] Last Admin: 05/20/18 16:52 Dose: 60 mg Magnesium Hydroxide (Milk Of Magnesia) 30 ml PO DAILY PRN PRN Reason: Constipation Last Admin: 05/19/18 09:36 Dose: 30 ml Potassium Chloride (K-Dur) 40 meq PO DAILYCM [facility] Last Admin: 05/20/18 09:18 Dose: 40 meq Pramipexole Dihydrochloride (Mirapex) 0.5 mg PO QHS [facility] Last Admin: 05/19/18 21:34 Dose: 0.5 mg Sertraline HCl (Zoloft) 50 mg PO DAILY [facility] Last Admin: 05/20/18 09:20 Dose: 50 mg Sodium Chloride () 5 - 30 ml IV UD PRN PRN Reason: SALINE FLUSH Last Admin: 05/19/18 09:40 Dose: 10 ml Tamsulosin HCl (Flomax) 0.4 mg PO BID [facility] Last Admin: 05/20/18 09:19 Dose: 0.4 mg - Past Medical History Past Medical History (Chronic Problems): Chronic Problems HLD (hyperlipidemia) (Chronic) HTN (hypertension) (Chronic) PAD (peripheral artery disease) (Chronic) CAD (coronary artery disease) (Chronic) COPD (chronic obstructive pulmonary disease) (Chronic) Tobacco dependence (Chronic) CKD (chronic kidney disease) (Chronic) Leukocytosis (Chronic) Anemia (Chronic) BPH (benign prostatic hyperplasia) (Chronic) - Past Surgical History Surgical History: coronary bypass surgery, tonsillectomy - Social History Smoking Status: Current some day smoker Alcohol: None Drugs: None - Family History Maternal History Items: No pertinent history Paternal History Items: No pertinent history Patient Problems: Active and Suspected Problems Acute renal failure superimposed on chronic kidney disease (Acute) - Physical Exam General: Alert, Oriented x3 HEENT: Atraumatic, PERRLA Oral: Moist Mucosa Neck: Supple, No JVD Lungs: - - decreased BS over lung bases Cardiovascular: Regular rate, Regular Rhythm, Normal S1, Normal S2 Abdomen: Bowel Sounds Present, Soft, Non Tender Extremities: - - +2 edema of LE Skin: No rashes Musculoskeletal: No Tenderness to Palpation of Joints or Extremities Lymphatic: No Cervical, Supraclavicular, or Inguinal Adenopathy Neurological: Cranial nerves II-XII grossly intact, Neuro grossly intact Psych/Mental Status: Normal Affect Vital Signs Temp Pulse Resp BP Pulse Ox 98.2 F 59 L 20 H 126/57 H 96 05/20/18 15:00 05/20/18 15:02 05/20/18 15:00 05/20/18 15:00 05/20/18 15:00 Oxygen Flow Rate (L/min) 4 Oxygen Delivery Method Nasal Cannula Weight: 89.5 kg Body Mass Index (BMI) 29.2 Intake and Output for Last 24 Hours Laboratory Tests Past 24 Hrs WBC 10.8 RBC 3.35 L Hgb 10.1 L Hct 33.9 L MCV 101.2 H MCH 30.1 Assessment/Plan All Active Problems Acute renal failure superimposed on chronic kidney disease (Acute) Acute respiratory failure with hypoxia (Acute) Diastolic CHF (Acute) 1- DAI on CKD DAI is most probably ATN from contrast exposure along prerenal from diuresis Baseline Cr seems around 1.4 mg/dL. Cr increased to 1.8 mg/dL today from 1.3 yesterday along with decreased UOP metolazone was stopped. 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 I think the current respiratory distress is from B/L pleural effusion and pulmonary HTN Please stop bumex drip. Low salt diet and fluid restriction of 50 ounces daily Patient might need thoracocentesis to help expanding the lung 3- Hypokalemia: from diuretics. Please replace with Kcl 20 mEq one time Please stop Kcl supplement since the patient UOP has decreased Thank you for the consult Renal team will continue to follow Amanda Livingston MS [phone] 05/20/181916 <Electronically signed by Amanda Livingston MD> Date Amanda Livingston MD Cosigner Signature (if applicable): Date CC: SEUN Berger; Amanda Livingston MD; Sergey Salazar D.O.; Arnaldo Mckeon MD Signed CBC-COMPLETE BLOOD CNT Collected: 05/20/2018 Status: F Source: [place] NO DIFF 5:45 AM [facility] REPOSITORY TYPE CODE TESTS RESULT OUT OF RANGE REFERENCE UNITS LAB L100.1000 4.4-11.0 K/mm3 Normal WBC 10.8 LAB L100.1200 4.6-6.2 M/mm3 Low RBC 3.35 LAB L100.1300 13.0-16.5 g/dl Low HGB 10.1 LAB L100.1400 40-54 % Low HCT 33.9 LAB L100.1500 80-94 fL High MCV 101.2 LAB L100.1600 27.0-32.0 pg Normal MCH 30.1 LAB L100.1700 32-36 g/gl Low MCHC 29.8 LAB L100.1810 11.6-14.6 % High RDW CV 17.6 LAB L100.1820 35.1-43.9 fl High RDW SD 62.9 LAB L100.1900 150-450 K/mm3 Normal PLT 216 LAB L100.2000 6.2-12.0 fl Normal MPV 9.3 Performed By: #### L100.0500 #### [facility] [address] [place], [address] BASIC METABOLIC Collected: 05/20/2018 Status: F Source: [place] PROFILE (BMP) 5:45 AM [facility] REPOSITORY TYPE CODE TESTS RESULT OUT OF RANGE REFERENCE UNITS LAB L501.0100 74-106 mg/dL High GLU 129 Result Comment: Fasting Glucose result greater than or equal to 126 mg/dL suggests DIABETES MELLITUS per A.D.A. criteria. Please note revised GLUCOSE reference range effective 2017. LAB L501.1000 7-18 mg/dL High BUN 49 LAB L501.1100 0.70-1.30 mg/dL High CREAT,SERUM 1.81 Result Comment: The validity of the calculated GFR AND GFRAA in patients over 70 years has not been determined. Clinical correlation is essential. LAB L501.1110 >60 mL/min Low EST GFR 40 Result Comment: Non- GFR Calc LAB L501.1115 >60 mL/min Low EST GFR - AA 48 Result Comment: GFR Calc LAB L501.1255 ml/min Normal Estimated CRCL 38.84 LAB L501.1300 10-20 RATIO High BUN/CRE 27.1 LAB L501.2200 8.5-10 mg/dL Low .1 CA 8.4 LAB L501.5300 136-14 mmol/L Normal 5 NA 142 LAB L501.5600 3.5-5. mmol/L Low 1 K 3.4 LAB L501.5900 98-107 mmol/L Normal CL 106 LAB L501.6100 21.0-3 mmol/L Normal 2.0 CO2 30.0 LAB L501.6200 5-15 Normal GAP 6 Performed By: #### L500.2500, L501.5200 #### [facility] [address] [place], [address] MAGNESIUM Collected: 05/20/2018 Status: F Source: [place] 5:45 AM [facility] REPOSITORY TYPE CODE TESTS RESULT OUT OF RANGE REFERENCE UNITS LAB L501.5200 1.6-2.6 mg/dL High MG 2.9 Performed By: #### L500.2500, L501.5200 #### [facility] [address] [place], [address] THORACENTESIS W US Observed: 05/19/2018 Status: F Source: [place] 5:09 PM [facility] REPOSITORY [facility] Imaging Services [address] [place] [address] Thoracentesis W US MR#: [id number] Acct: [id number] Name: LONYENNI Uzair Rep #: [id number] : 1950 M 67 From: Katherine Warren MD PCP: SEUN Poe Status: ADM IN Study: Thoracentesis W US Date of Exam: 05/22/18 Exam# [id number] Ordering Dr: Chepe Barrientos MD PROCEDURE: ULTRASOUND GUIDED THORACENTESIS. CLINICAL INDICATION: Pleural effusions. Shortness of breath. Dyspnea. Prior Thoracentesis history. PHYSICIAN: Katherine Warren M.D. MEDICATIONS: 1% lidocaine administered subcutaneously for local anesthesia. ACCESS SITE: Right lower thorax, posterior approach. CATHETER: 5 Luxembourger thoracentesis needle/catheter system. FLUID: Approximately 1705 mL of straw-colored pleural fluid removed. COMPLICATIONS: None immediate. The risks, benefits, and alternatives to the procedure and local anesthesia were explained to the patient. The specific risks of bleeding, infection, nerve damage, allergic reaction and pneumothorax requiring chest tube insertion were discussed and accepted. Written and witnessed informed consent was obtained. PROCEDURE: Ultrasonographic evaluation of the right lower pleural space was carried out. An adequate pocket was identified. The patient was placed in the sitting, upright position. The overlying skin was prepped and draped in sterile fashion. 1% lidocaine was administered subcutaneously for local anesthesia. Under ultrasound guidance, a 5 Luxembourger thoracentesis needle/catheter system was advanced into the right posterior lower pleural fluid collection. The inner stylet was removed and there was spontaneous flow of pleural fluid. Approximately 1705 mL of fluid was manually aspirated. The catheter was removed. Hemostasis was achieved and a sterile dressing was applied. A specimen was collected and sent to the laboratory for analysis, as requested by the referring clinician. The patient tolerated the procedure well, without immediate complications. A chest x-ray was ordered and accomplished within an hour. US/Thoracentesis W US IMPRESSION: Successful ultrasound-guided right thoracentesis. Electronically Signed: Katherine Warren, at 13:43 EDT Tel , Service support , CC: SEUN Berger; Chepe Barrientos MD Specialty Manufacturing Supervisor: Signed CHEST Observed: 05/19/2018 Status: F Source: [place] 9:49 AM [facility] REPOSITORY [facility] Imaging Services [facility] [place] [address] [address] [place] [address] Chest MR#: [id number] Acct: [id number] Name: YENNI GIMENEZ Rep #: [id number] : 1950 M 67 From: Rogelio Robertson MD PCP: SEUN Poe Status: ADM IN Study: Chest Date of Exam: 05/19/18 Exam# [id number] Ordering Dr: Chepe Barrientos MD STUDY: SUPERFICIAL ULTRASOUND - ULTRASOUND OF THE CHEST REASON FOR EXAM: Male, 67 years old. Pleural effusion check. TECHNIQUE: A superficial ultrasound was performed with real- time and static ortez-scale imaging. COMPARISON: CT of the chest 05/18/2018. FINDINGS: There is a large right pleural effusion. There is a small left pleural effusion. Electronically Signed: Rogelio Robertson MD at 15:53 EDT , Service support , US/Chest CC: BARREL LATHE OPERATOR INSIDE-C Wong Berger; Chepe Barrientos MD Specialty Manufacturing Supervisor: Signed CBC-COMPLETE BLOOD CNT Collected: 05/19/2018 Status: F Source: [place] NO DIFF 8:48 AM [facility] REPOSITORY TYPE CODE TESTS RESULT OUT OF RANGE REFERENCE UNITS LAB L100.1000 4.4-11.0 K/mm3 High WBC 11.4 LAB L100.1200 4.6-6.2 M/mm3 Low RBC 3.62 LAB L100.1300 13.0-16.5 g/dl Low HGB 10.7 LAB L100.1400 40-54 % Low HCT 36.6 LAB L100.1500 80-94 fL High MCV 101.1 LAB L100.1600 27.0-32.0 pg Normal MCH 29.6 LAB L100.1700 32-36 g/gl Low MCHC 29.2 LAB L100.1810 11.6-14.6 % High RDW CV 18.1 LAB L100.1820 35.1-43.9 fl High RDW SD 67.1 LAB L100.1900 150-450 K/mm3 Normal PLT 213 LAB L100.2000 6.2-12.0 fl Normal MPV 9.8 Performed By: #### L100.0500, L100.4500 #### [facility] [address] [place], [address] DIFFERENTIAL COMMENT Collected: 05/19/2018 Status: F Source: [place] 8:48 AM [facility] REPOSITORY TYPE CODE TESTS RESULT OUT OF RANGE REFERENCE UNITS LAB L100.4500 Normal SMEAR COMMENT Result Comment: ANISOCYTOSIS 1+ Performed By: #### L100.0500, L100.4500 #### [facility] [address] [place], [address] BASIC METABOLIC Collected: 05/19/2018 Status: F Source: [place] PROFILE (BMP) 8:48 AM [facility] REPOSITORY TYPE CODE TESTS RESULT OUT OF RANGE REFERENCE UNITS LAB L501.0100 74-106 mg/dL High GLU 120 Result Comment: Fasting Glucose result from 100 to 125 mg/dL suggests IMPAIRED HOMEOSTASIS per A.D.A. criteria. Please note revised GLUCOSE reference range effective 2017. LAB L501.1000 7-18 mg/dL High BUN 45 LAB L501.1100 0.70-1.30 mg/dL High CREAT,SERUM 1.37 Result Comment: The validity of the calculated GFR AND GFRAA in patients over 70 years has not been determined. Clinical correlation is essential. LAB L501.1110 >60 mL/min Low EST GFR 55 Result Comment: Non- GFR Calc LAB L501.1115 >60 mL/min Normal EST GFR - AA 67 Result Comment: GFR Calc LAB L501.1255 ml/min Normal Estimated CRCL 51.31 LAB L501.1300 10-20 RATIO High BUN/CRE 32.8 LAB L501.2200 8.5-10 mg/dL Normal .1 CA 8.6 LAB L501.5300 136-14 mmol/L Normal 5 NA 142 LAB L501.5600 3.5-5. mmol/L Low 1 K 3.4 LAB L501.5900 98-107 mmol/L High CL 109 LAB L501.6100 21.0-3 mmol/L Normal 2.0 CO2 23.0 LAB L501.6200 5-15 Normal GAP 10 Performed By: #### L500.2500, L501.5200 #### [facility] [address] [place], [address] MAGNESIUM Collected: 05/19/2018 Status: F Source: [place] 8:48 AM [facility] REPOSITORY TYPE CODE TESTS RESULT OUT OF RANGE REFERENCE UNITS LAB L501.5200 1.6-2.6 mg/dL Normal MG 2.4 Performed By: #### L500.2500, L501.5200 #### [facility] [address] [place], [address] CTA CHEST W/WO Observed: 05/18/2018 Status: F Source: [place] CONTRAST 8:38 PM [facility] REPOSITORY [facility] Imaging Services [address] [place] [address] CTA Chest W/WO Contrast MR#: [id number] Acct: [id number] Name: YENNI GIMENEZ Rep #: [id number] : 1950 M 67 From: Rogelio Robertson MD PCP: SEUN Poe Status: ADM IN Study: CTA Chest W/WO Contrast Date of Exam: 05/18/18 Exam# [id number] Ordering Dr: Chepe Barrientos MD STUDY: CTA CHEST REASON FOR EXAM: Male, 67 years old. Congestive heart failure. COPD. Possible pulmonary embolus. RADIATION DOSAGE (If Supplied By Facility): CTDIvol = ( 15.87 ) mGy, DLP = ( 773.40 ) mGycm TECHNIQUE: The examination was performed with the intravenous administration of 75ML ml of Isovue 370 contrast material. Post-processing of the angiographic images was performed, with multiplanar reformation and 3D reconstruction. Individualized dose optimization techniques were used for this CT. COMPARISON: 04/02/2018.. FINDINGS: Normal enhancement of the main pulmonary artery and right and left pulmonary arteries. Normal enhancement of the bilateral peripheral pulmonary arteries. There is no demonstrated pulmonary embolism. There is atherosclerotic calcification of the aortic arch with tortuosity. There is no demonstrated aortic dissection. Sternal cerclage wires and vascular clips are present from a prior sternotomy and coronary artery bypass graft procedure (CABG). There is moderate upper and mid mediastinal adenopathy. There is generalized hyperexpansion of the lungs. There is a moderate right pleural effusion and a small left pleural effusion. These findings are stable. The lungs show evidence for centrilobular emphysema. Atelectasis or infiltrate seen in the anterior segment of the right upper lobe and in the right middle lobe. Atelectasis is seen in both lower lobes worse on the right. Normal chest wall structures. There are degenerative changes of thoracic spine. Normal visualized upper abdomen. CT/CTA Chest W/WO Contrast IMPRESSION: No evidence for PE. Bilateral pleural effusions worse on the right. Bilateral lower lobe atelectasis worse on the right. Atelectasis or infiltrate in the anterior segment right upper lobe and right middle lobe. Electronically Signed: Rogelio Robertson MD at 22:15 EDT , Service support , CC: SEUN Berger; Chepe Barrientos MD Specialty Manufacturing Supervisor: Signed 12 LEAD ELECTROCARDIOGRAM Observed: 05/18/2018 Status: F Source: [place] 9:52 AM [facility] REPOSITORY [facility] Cardiovascular Services [address] [place] [address] 12 Lead EKG 05/15/182029 MR#: [id number] Acct: [id number] Name: YENNI GIMENEZ Rep #: [id number] : 1950 67 From: Arnaldo Mckeon MD Attending Dr: Manoj Christensen MD Status: ADM IN Ordering Dr: Faraz Cheng MD Date: 05/15/18 Location: [facility] Sex: M C Admitted: 05/15/18 Test Reason : SOB Blood Pressure : / mmHG Vent. Rate : 066 BPM Atrial Rate : 066 BPM P-R Int : 200 ms QRS Dur : 096 ms QT Int : 474 ms P-R-T Axes : 027 068 112 degrees QTc Int : 496 ms Sinus rhythm with marked sinus arrhythmia Nonspecific T wave abnormality Prolonged QT Abnormal ECG Confirmed by LINDA MONTENEGRO, ARNALDO ([id number]), medical transcription editor SHIRA HURD ([id number]) on 05/18/2018 9:52:26 AM Referred By: ALLA Confirmed By:ARNALDO MCKEON MD 05/18/18 0952 Date Arnaldo Mckeon MD CC: SEUN Berger; Manoj Christensen MD; Faraz Cheng Signed BASIC METABOLIC Collected: 05/17/2018 Status: F Source: [place] PROFILE (BMP) 5:25 AM [facility] REPOSITORY TYPE CODE TESTS RESULT OUT OF RANGE REFERENCE UNITS LAB L501.0100 74-106 mg/dL High GLU 111 Result Comment: Fasting Glucose result from 100 to 125 mg/dL suggests IMPAIRED HOMEOSTASIS per A.D.A. criteria. Please note revised GLUCOSE reference range effective 2017. LAB L501.1000 7-18 mg/dL High BUN 45 LAB L501.1100 0.70-1.30 mg/dL High CREAT,SERUM 1.63 Result Comment: The validity of the calculated GFR AND GFRAA in patients over 70 years has not been determined. Clinical correlation is essential. LAB L501.1110 >60 mL/min Low EST GFR 45 Result Comment: Non- GFR Calc LAB L501.1115 >60 mL/min Low EST GFR - AA 55 Result Comment: GFR Calc LAB L501.1255 ml/min Normal Estimated CRCL 43.13 LAB L501.1300 10-20 RATIO High BUN/CRE 27.6 LAB L501.2200 8.5-10 mg/dL Normal .1 CA 8.6 LAB L501.5300 136-14 mmol/L Normal 5 NA 143 LAB L501.5600 3.5-5. mmol/L Normal 1 K 3.8 LAB L501.5900 98-107 mmol/L Normal CL 105 LAB L501.6100 21.0-3 mmol/L Normal 2.0 CO2 31.0 LAB L501.6200 5-15 Normal GAP 7 Performed By: #### L500.2500 #### [facility] [address] [place], [address] CBC W/DIFF, AUTOMATED Collected: 05/17/2018 Status: F Source: [place] 5:25 AM [facility] REPOSITORY TYPE CODE TESTS RESULT OUT OF RANGE REFERENCE UNITS LAB L100.1000 4.4-11.0 K/mm3 High WBC 11.6 LAB L100.1200 4.6-6.2 M/mm3 Low RBC 3.34 LAB L100.1300 13.0-16.5 g/dl Low HGB 10.2 LAB L100.1400 40-54 % Low HCT 34.1 LAB L100.1500 80-94 fL High MCV 102.1 LAB L100.1600 27.0-32.0 pg Normal MCH 30.5 LAB L100.1700 32-36 g/gl Low MCHC 29.9 LAB L100.1810 11.6-14.6 % High RDW CV 18.3 LAB L100.1820 35.1-43.9 fl High RDW SD 65.9 LAB L100.1900 150-450 K/mm3 Normal PLT 229 LAB L100.2000 6.2-12.0 fl Normal MPV 10.0 LAB L100.2100 47-70 % High NEUT% 80.0 LAB L100.2200 19-41 % Low LY% 10.2 LAB L100.2300 0-10 % Normal MONO% 8.5 LAB L100.2400 0-5 % Normal EO% 0.9 LAB L100.2500 0-1 % Normal BASO% 0.1 LAB L100.2550 0.0-0.9 % Normal IM GRAN % 0.300 Result Comment: IG% - Immature Granulocytes (promyelocytes, myelocytes and metamyelocytes) > 1% indicates that a LEFT SHIFT is Present. LAB L100.2620 2.0-7.7 X10 3/uL High Absolute Neut 9.3 LAB L100.2720 0.83-4.51 X10 3/ul Absolute Lymph Normal 1.18 LAB L100.7300 ANISO Normal 1+ LAB L100.7500 POLYCHROMASIA Normal 1+ LAB L100.7800 MACROCYTE Normal 1+ Performed By: #### L100.0100 #### [facility] [address] [place], [address] BLOOD GASES BY CPS Collected: 05/16/2018 Status: F Source: [place] 3:03 PM [facility] REPOSITORY TYPE CODE TESTS RESULT OUT OF RANGE REFERENCE UNITS LAB L9000.9990 Normal BLD GAS TYPE ART LAB L9001.1000 Normal SITE L Radial LAB L9001.1010 Normal MARY TEST POS LAB L9001.1050 O2 Normal Delivery Dev Nasal Can LAB L9001.1055 /min Normal LPM 2.0 LAB L9001.1104 Normal Results To HOSP MD LAB L9001.1105 Normal Time Given 1510 LAB L9001.1110 7.35-7.45 High pH - I-STAT 7.53 LAB L9001.1210 35-45 mmHg Low pCO2 - ISTAT 34.0 LAB L9001.1310 75-100 mmHG Normal PO2 I-STAT 86 LAB L9001.2300 22-26 mmol/L High HCO3 ISTAT 28.2 LAB L9001.2400 -2 to +2 mmol/L High BE ISTAT 5 LAB L9001.2415 mmol/L Normal TOTAL CO2 29 ISTAT LAB L9001.2425 95-99 % Normal SO2 ISTAT 98 Performed By: #### L9000.0800 #### [facility] Point of Care [address] [place] [address] CONSULTATION Observed: 05/16/2018 Status: F Source: [place] 2:05 PM [facility] REPOSITORY [facility] Medical Records Department [address] [place] [address] Consultation 05/16/18 1355 MR#: [id number] Acct: [id number] Name: YENNI GIMENEZ Rep #: [id number] : 1950 67 From: Arnalod Mckeon MD PCP: SEUN Poe Status: ADM IN Y Location: [place] [address] Problem List (1) Diastolic CHF Status: Acute Qualifiers: (2) CAD (coronary artery disease) Status: Chronic Qualifiers: (3) HLD (hyperlipidemia) Status: Chronic Qualifiers: (4) HTN (hypertension) Status: Chronic Qualifiers: (5) COPD (chronic obstructive pulmonary disease) Status: Chronic Qualifiers: (6) CKD (chronic kidney disease) Status: Chronic Qualifiers: Reason for Consult Date of Consultation: 05/16/18 History of Present Illness: The patient is a 67 year old white male with a past history which has included diastolic mediated CHF, CAD, hyperlipidemia, hypertension, COPD, chronic renal insufficiency who is referred for evaluation of recurrent shortness of breath/dyspnea with acute on chronic diastolic mediated CHF. He was recently evaluated at [facility] on 04/30/2018 by Chepe Barrientos MD of the [facility]. During his hospitalization he underwent noninvasive evaluation which included a transthoracic echocardiogram. According to the report the left ventricle was thought to be normal with an LVEF 55% with decreased diastolic compliance, the left atrium was moderately enlarged, there was mild MR and trivial TR and an estimated RV systolic pressure 42 mmHg. He also underwent a dobutamine stress echocardiogram. According to the report he had a normal adequate dobutamine echocardiogram which was considered negative for ischemia by ECG and echocardiographic criteria. He was treated medically and eventually released home. However he states that at home he was noted to have continued shortness of breath which progressed. He attempted to use his CPAP device but states it did not work well. Thus he presented back to the hospital. He has denied any associated chest discomfort, nausea, emesis, or diaphoresis. He does admit to worsening lower extremity peripheral pitting edema involving the calves, ankles, and feet. He denies any obvious palpitations. There has been no near syncope or syncope. Since being back at [facility] he has been placed in the PCU. He is receiving medical management with IV diuretics. He is receiving a BiPAP type device at this time. His cardiac enzymes have been negative thus far. His BNP level was elevated at 1952.9. His ECG in the hospital demonstrated sinus rhythm/sinus arrhythmia with a nonspecific T-wave abnormality. His chest x-ray suggested findings of increased pulmonary vascularity/pleural effusions. [] Past Medical History Allergies/Adverse Reactions: Allergies irbesartan [From Avapro] Adverse Reaction (Verified 05/15/18 20:06) Other zolpidem [From Ambien] Adverse Reaction (Verified 05/15/18 20:06) Other Home Medications: Ambulatory Orders Medication Instructions Recorded Aspirin [Aspirin, Baby] 81 mg PO DAILY@0800 01/28/18 Past Medical History (Chronic Problems): Chronic Problems HLD (hyperlipidemia) (Chronic) HTN (hypertension) (Chronic) PAD (peripheral artery disease) (Chronic) CAD (coronary artery disease) (Chronic) COPD (chronic obstructive pulmonary disease) (Chronic) Tobacco dependence (Chronic) CKD (chronic kidney disease) (Chronic) Leukocytosis (Chronic) Anemia (Chronic) BPH (benign prostatic hyperplasia) (Chronic) Surgical History: coronary bypass surgery, tonsillectomy - *Family History Maternal History Items: No pertinent history Paternal History Items: No pertinent history Lives: Spouse/ Significant Other Smoking Status: Current some day smoker Tobacco Use: Cigarettes Alcohol: None Drugs: None Review of Systems - Review of Systems General: Denies: Fever, Night Sweats, Fatigue Cardiovascular: Reports: Shortness of Breath, Shortness of Breath at Rest, Orthopnea, PND, Peripheral Edema. Denies: Chest Discomfort, Palpitations, Lightheadedness, Dizziness, Near Syncope, Syncope Respiratory: Reports: Shortness of Breath. Denies: Cough, Sputum Production, Hemoptysis Gastrointestinal: Denies: Hematemesis, Hematochezia, Melena Genitourinary: Denies: Dysuria, Hematuria Skin: Denies: Rash Subjectve: This is a 67-year-old white male who appears short of breath and dyspneic. Objective: Vital Signs Temp Pulse Resp BP Pulse Ox 98.4 F 67 22 H 158/73 H 96 05/16/18 09:15 05/16/18 13:21 05/16/18 13:21 05/16/18 09:15 05/16/18 13:21 Oxygen Flow Rate (L/min) 2 Oxygen Delivery Method Nasal Cannula Weight: 192 lb 7.417 oz Body Mass Index (BMI) 29.2 Intake and Output for Last 24 Hours Intake Total 120 / 120 230 / 230 Output Total 750 / 950 1225 / 1225 Balance -630 / -830 -995 / -995 General: Awake, Alert, Oriented x 3, Cooperative Neck: Supple, Good ROM, No JVD Lungs: Diminished Viral Bases Cardiovascular: Regular Rhythm, Normal S1, Normal S2 Abdomen: Bowel Sounds Present, Soft, Non Tender Extremities: Moderate RLE Edema, Moderate LLE Edema Neurological: No Focal Motor or Sensory Deficit Psych/Mental Status: Appropriate, Normal Affect 05/15/18 23:10: Troponin I < 0.015 05/16/18 02:40: WBC 11.7 H, RBC 3.29 L, Hgb 10.0 L, Hct 32.7 L, MCV 99.4 H, MCH 30.4, MCHC 30.6 L, RDW 18.5 H, RDW Differential 64.0 H, Plt Count 245, MPV 9.4, Immature Gran % (Auto) 0.500, Neut % (Auto) 76.2 H, Lymph % (Auto) 12.4 L, [place] % (Auto) 10.7 H, Eos % (Auto) 0.1, Baso % (Auto) 0.1, Absolute Neuts (auto) 8.9 H, Total Counted Not Reportable 05/16/18 02:40: Sodium 140, Potassium 3.6, Chloride 100, Carbon Dioxide 29.0, Anion Gap 11, BUN 43 H, Creatinine 1.50 H, Est GFR (MDRD) Af Amer 60, Est GFR (MDRD) Non-Af 50 L, BUN/Creatinine Ratio 28.7 H, Glucose 140 H, Calcium 8.5 05/16/18 02:40: B-Natriuretic Peptide 1952.9 H 05/16/18 02:40: Troponin I < 0.015 05/16/18 12:05: PT 13.5, INR 1.0 Rhythm: Sinus rhythm EKG: As noted above ECHO: As noted above Stress Test: As noted above CXR: As noted above: Please see official report Assessment/Plan 1. Acute on chronic diastolic mediated CHF The patient presents with recurrent symptoms. At the present time he is undergone noninvasive evaluation. He is being treated medically with diuretic therapy and oxygen support. Based upon his previous cardiovascular evaluation by Dr. Barrientos there was a comment if the patient had ongoing concerns that he may need further definitive evaluation with right/left cardiac cath. However prior to the patient being able to proceed in such manner he will have to have improvement in his underlying respiratory status where he can lie supine to go through such a procedure. 2. CAD The patient states he has a history of underlying CAD. He has not required revascularization therapy. His cardiac enzymes are negative thus far and his ECG demonstrates no acute changes. However there is still concern as to whether this may be playing a role in his symptoms and objective findings. He will continue to be monitored and will undergo additional evaluation when he is able. In the meantime he should continue medical therapy as tolerated. 3. Hyperlipidemia The patient should continue risk factor evaluation and care. 4. Hypertension Continue antihypertensive therapy in order to optimize his cardiovascular risk factors, etc. and help with his acute on chronic diastolic mediated CHF. 5. COPD The patient has a history of underlying COPD. He states he has been evaluated in the hospital in the past by Dr. Caicedo pulmonology. He may need pulmonology input during his hospitalization to assist with his underlying pulmonary disease process, etc. 6. Chronic renal insufficiency He does have an elevated creatinine level. This would have to be taken into consideration with future invasive evaluation care including studies requiring IV contrast to minimize the risk of IV contrast related nephropathy. Comment: The patient is case was discussed with the patient and his family members present. 05/16/18 1405 <Electronically signed by Arnaldo Mckeon MD> Date Arnaldo Mckeon MD Cosigner Signature (if applicable): Date CC: BARREL LATHE OPERATOR INSIDERamo Berger; Elie Caicedo MD; Chepe Barrientos MD; Arnaldo Mckeon MD Signed PROTHROMBIN TIME W/INR Collected: 05/16/2018 Status: F Source: [place] 12:05 PM [facility] REPOSITORY TYPE CODE TESTS RESULT OUT OF RANGE REFERENCE UNITS LAB L300.4150 11.7-14.9 SECONDS Normal PROTIME 13.5 LAB L300.4200 Normal INR 1.0 Performed By: #### L300.3900 #### [facility] [address] [place], [address] CBC W/DIFF, AUTOMATED Collected: 05/16/2018 Status: F Source: [place] 2:40 AM [facility] REPOSITORY TYPE CODE TESTS RESULT OUT OF RANGE REFERENCE UNITS LAB L100.1000 4.4-11.0 K/mm3 High WBC 11.7 LAB L100.1200 4.6-6.2 M/mm3 Low RBC 3.29 LAB L100.1300 13.0-16.5 g/dl Low HGB 10.0 LAB L100.1400 40-54 % Low HCT 32.7 LAB L100.1500 80-94 fL High MCV 99.4 LAB L100.1600 27.0-32.0 pg Normal MCH 30.4 LAB L100.1700 32-36 g/gl Low MCHC 30.6 LAB L100.1810 11.6-14.6 % High RDW CV 18.5 LAB L100.1820 35.1-43.9 fl High RDW SD 64.0 LAB L100.1900 150-450 K/mm3 Normal PLT 245 LAB L100.2000 6.2-12.0 fl Normal MPV 9.4 LAB L100.2100 47-70 % High NEUT% 76.2 LAB L100.2200 19-41 % Low LY% 12.4 LAB L100.2300 0-10 % High MONO% 10.7 LAB L100.2400 0-5 % Normal EO% 0.1 LAB L100.2500 0-1 % Normal BASO% 0.1 LAB L100.2550 0.0-0.9 % Normal IM GRAN % 0.500 Result Comment: IG% - Immature Granulocytes (promyelocytes, myelocytes and metamyelocytes) > 1% indicates that a LEFT SHIFT is Present. LAB L100.2620 2.0-7.7 X10 3/uL High Absolute Neut 8.9 LAB L100.2720 0.83-4.51 X10 3/ul Normal Absolute Lymph 1.46 Performed By: #### L100.0100 #### [facility] [address] [place], [address] BASIC METABOLIC Collected: 05/16/2018 Status: F Source: [place] PROFILE ([facility]) 2:40 AM [facility] REPOSITORY TYPE CODE TESTS RESULT OUT OF RANGE REFERENCE UNITS LAB L501.0100 74-106 mg/dL High GLU 140 Result Comment: Fasting Glucose result greater than or equal to 126 mg/dL suggests DIABETES MELLITUS per A.D.A. criteria. Please note revised GLUCOSE reference range effective 2017. LAB L501.1000 7-18 mg/dL High BUN 43 LAB L501.1100 0.70-1.30 mg/dL High CREAT,SERUM 1.50 Result Comment: The validity of the calculated GFR AND GFRAA in patients over 70 years has not been determined. Clinical correlation is essential. LAB L501.1110 >60 mL/min Low EST GFR 50 Result Comment: Non- GFR Calc LAB L501.1115 >60 mL/min Normal EST GFR - AA 60 Result Comment: GFR Calc LAB L501.1255 ml/min Normal Estimated CRCL 46.87 LAB L501.1300 10-20 RATIO High BUN/CRE 28.7 LAB L501.2200 8.5-10 mg/dL Normal .1 CA 8.5 LAB L501.5300 136-14 mmol/L Normal 5 NA 140 LAB L501.5600 3.5-5. mmol/L Normal 1 K 3.6 LAB L501.5900 98-107 mmol/L Normal CL 100 LAB L501.6100 21.0-3 mmol/L Normal 2.0 CO2 29.0 LAB L501.6200 5-15 Normal GAP 11 Performed By: #### L500.2500 #### [facility] [address] [place], [place], [address] TROPONIN-I Collected: 05/16/2018 Status: F Source: [place] 2:40 AM [facility] REPOSITORY Order Comment: 'TROP' Serial specimen #1, #2 or #3: 3 TYPE CODE TESTS RESULT OUT OF RANGE REFERENCE UNITS LAB L501.4010 <0.045 ng/mL Normal < 0.015 TROPONIN-I Result Comment: TROPONIN-I EXPECTED VALUES <0.045 Negative 0.045 - 0.590 Consistent with Cardiac Damage > OR = 0.600 Critical Value Not every elevated troponin is indicative of SC. These values should be used with clinical judgement in examining the patient's clinical picture for diagnosis. To establish a diagnosis of SC versus myocardial injury, there must be a demonstrated rise and/or fall in the troponin values, in addition to ischemic symptoms, EKG changes, new regional wall motion abnormality, and/or angiographical evidence. PLEASE NOTE: REFERENCE RANGES EDITED 18 Performed By: #### L501.4010 #### [facility] [address] [place], [address] BNP,B-TYPE NATRIURETIC Collected: 05/16/2018 Status: F Source: [place] PEPTIDE 2:40 AM [facility] REPOSITORY TYPE CODE TESTS RESULT OUT OF RANGE REFERENCE UNITS LAB L503.6620 0-100 pg/mL High B-TYPE 1952.9 ALISSA PEP Performed By: #### L503.6620 #### [facility] [address] [place], [address] EMERGENCY DEPARTMENT Observed: 05/16/2018 Status: F Source: [place] SUMMARY 1:45 AM [facility] REPOSITORY [facility] Medical Records Department [address] [place] [address] Emergency Department Summary 05/16/18 0020 MR#: [id number] Acct: [id number] Name: YENNI GIMENEZ Rep #: [id number] : 1950 67 From: Faraz Cheng MD PCP: SUEN Poe Status: ADM IN - ER Visit Summary Date of Service: 05/16/18 Chief Complaint: Shortness of breath History of Present Illness: The patient is a 67 M presenting for evaluation secondary shortness breath. Patient has an underlying history of COPD and CHF was actually just recently admitted to the hospital secondary to a CHF exacerbation. Patient reports that he had a relatively sudden onset of worsening shortness of breath today. Additional history was unable to be obtained due to the patient's level of shortness of breath. Physical Examination: Well-nourished male visibly in respiratory distress with a respiratory rate in the 30s and very coarse sounding lungs. Airways patent, decreased air movement is noted. Strong radial pulses bilaterally symmetric. Head normocephalic. Neck was supple. Abdomen soft nontender. Extremities show 2+ bilaterally symmetric pitting edema. Skin was normal color. Patient was alert and oriented. Test Results: Chest x-ray demonstrates CHF. EKG demonstrates a first-degree AV block with a rate of [address] segments and nonspecific T-wave changes. Lab work shows negative troponin and a positive BNP. Emergency Department Course and Treatment: Patient presented for evaluation secondary to significant shortness breath. He was placed on BiPAP he was immediately given Lasix nitro and was placed on rn labor and delivery. Patient's workup as noted above shows evidence of congestive heart failure. Patient will be admitted under the hospitalist. He did have improvement of his respiratory status on repeat evaluation. Disposition: Admission Impression: 1. Congestive heart failure 2. Hypoxic respiratory failure Critical care time 35 minutes This note was generated with Dragon dictation software. It may contain incorrect words, spelling, and punctuation that were not noted in review of the chart prior to signing ED Disposition - Plan for ED Patient: Disposition: Acute Care Hospital [facility] Chief Complaint: Shortness of Breath What to do if you have Problems For any increased pain, shortness of breath, bleeding, nausea or vomiting, chest pain, or any unexpected problems, contact your Primary Care Provider. Call [facility] ([phone]) or report to the closest Emergency Room. Call 911 if necessary. 05/16/18 0145 <Electronically signed by Faraz Cheng MD> Date Faraz Cheng MD Cosigner Signature (If Indicated): Date CC: SEUN Berger TROPONIN-I Collected: 05/15/2018 Status: F Source: EDDIE 11:10 PM [facility] REPOSITORY Order Comment: 'TROP' Serial specimen #1, #2 or #3: 2 TYPE CODE TESTS RESULT OUT OF RANGE REFERENCE UNITS LAB L501.4010 <0.045 ng/mL Normal < 0.015 TROPONIN-I Result Comment: TROPONIN-I EXPECTED VALUES <0.045 Negative 0.045 - 0.590 Consistent with Cardiac Damage > OR = 0.600 Critical Value Not every elevated troponin is indicative of SC. These values should be used with clinical judgement in examining the patient's clinical picture for diagnosis. To establish a diagnosis of SC versus myocardial injury, there must be a demonstrated rise and/or fall in the troponin values, in addition to ischemic symptoms, EKG changes, new regional wall motion abnormality, and/or angiographical evidence. PLEASE NOTE: REFERENCE RANGES EDITED 18 Performed By: #### L501.4010 #### [facility] [address] [place], [address] HISTORY AND PHYSICAL Observed: 05/15/2018 Status: F Source: EDDIE EXAM 9:49 PM [facility] REPOSITORY [facility] Medical Records Department [address] [place] [address] History and Physical 05/15/181 MR#: [id number] Acct: [id number] Name: YENNI GIMENEZ Rep #: [id number] : 1950 67 From: Arnaldo Jennings MD PCP: SEUN Poe Status: REG ER Y Location: ED Problem List (1) Diastolic CHF Status: Acute Qualifiers: (2) HLD (hyperlipidemia) Status: Chronic Qualifiers: (3) HTN (hypertension) Status: Chronic Qualifiers: (4) PAD (peripheral artery disease) Status: Chronic (5) CAD (coronary artery disease) Status: Chronic Qualifiers: (6) COPD (chronic obstructive pulmonary disease) Status: Chronic Qualifiers: (7) Tobacco dependence Status: Chronic (8) CKD (chronic kidney disease) Status: Chronic Qualifiers: (9) Respiratory failure with hypoxia Status: Acute (10) BPH (benign prostatic hyperplasia) Status: Chronic Qualifiers: History of Present Illness Date of Admission: 05/15/18 Chief Complaint: shortness of breath The patient is a 67 year old M [] The patient is a 67 year old M with a history of diastolic CHF, pulmonary hypertension, COPD, CAD status post prior CABG, nicotine abuse, and BPH with a chronic Charles catheter, who presented to the ER with increased shortness of breath and stating that he felt like he was filling up with fluid. He had lower extremity edema, paroxysmal nocturnal dyspnea and orthopnea, chest x-ray consistent with congestive heart failure. Recent stress test was normal and ejection fraction estimated to be 50%. Despite his discharge home on Tuesday he returns to us in respiratory distress. He has improved markedly with 80mg IV lasix and BIPAP therapy. He has pleural effusions on CXR and BNTP is markedly elevated. He will be admitted to the PCU with CHF exacerbation. Past Medical History Past Medical History (Chronic Problems): Chronic Problems HLD (hyperlipidemia) (Chronic) HTN (hypertension) (Chronic) PAD (peripheral artery disease) (Chronic) CAD (coronary artery disease) (Chronic) COPD (chronic obstructive pulmonary disease) (Chronic) Tobacco dependence (Chronic) CKD (chronic kidney disease) (Chronic) Leukocytosis (Chronic) Anemia (Chronic) BPH (benign prostatic hyperplasia) (Chronic) Allergies irbesartan [From Avapro] Adverse Reaction (Verified 05/15/18 20:06) Other zolpidem [From Ambien] Adverse Reaction (Verified 05/15/18 20:06) Other Home Medications: Ambulatory Orders Medication Instructions Recorded Aspirin [Aspirin, Baby] 81 mg PO DAILY@0800 01/28/18 Surgical History: coronary bypass surgery, tonsillectomy Smoking Status: Light Smoker (<10/day) - *Family History Maternal History Items: No pertinent history Paternal History Items: No pertinent history Review of Systems Constitutional: Denies: Chills, Fever, Weight Change HEENT: Denies: Head Aches, Sinus Congestion, Sinus Drainage Cardiovascular: Denies: Chest Pain, Palpitations Respiratory: Reports: Shortness of breath at rest. Denies: Cough, Sputum production Gastrointestinal: Denies: Abdominal Pain, Nausea, Vomiting Genitourinary: Reports: Retention. Denies: Dysuria Musculoskeletal: Denies: Joint Pain, Joint Tenderness Skin: Denies: Rash, Wounds Neurological: Denies: Numbness, Tingling, Focal weakness Psychiatric: Denies: Anxiety, Depression, Homicidal Ideations, Suicidal Ideations Hematologic/ Lymphatic: Denies: Easy Bruising, Easy Bleeding VTE Information - Inpt Only VTE Present on Admission: No VTE Mechan Device Prophylaxis: None VTE Pharm Prophylaxis ordered?: Yes - Physical Exam General: Alert, Oriented x3, Cooperative HEENT: Atraumatic, Normocephalic Neck: Supple Lungs: No rhonchi, No wheeze, No rales, Diminished Cardiovascular: Regular rate, Regular Rhythm, Normal S1, Normal S2, No murmurs Abdomen: Bowel Sounds Present, Soft, Non Tender, Obese Extremities: Capillary Refill Less than 3 Seconds, Edema - 1+ lower ext edema Skin: No rashes Musculoskeletal: No Tenderness to Palpation of Joints or Extremities Neurological: Neuro grossly intact Psych/Mental Status: Normal Affect, Appropriate Vital Signs Temp Pulse Resp BP Pulse Ox 98.4 F 68 20 H 157/62 H 98 05/15/18 21:14 05/15/18 21:14 05/15/18 21:14 05/15/18 21:14 05/15/18 21:14 Oxygen Delivery Method Bi-pap Weight: 199 lb 15.348 oz Body Mass Index (BMI) 30.4 Finger Stick Blood Glucose 200 Intake and Output for Last 24 Hours Output Total 200 / 200 Balance -200 / -200 Laboratory Tests Past 24 Hrs WBC 12.7 H RBC 3.45 L Hgb 10.7 L Hct 34.0 L MCV 98.6 H MCH 31.0 MCHC 31.5 L WBC RBC Hgb Hct MCV MCH MCHC RDW RDW Differential Assessment/Plan All Active Problems DAI (acute kidney injury) (Acute) Pneumonia (Acute) UTI (urinary tract infection) (Resolved) Sepsis (Resolved) Acute respiratory failure with hypoxia (Acute) Diastolic CHF (Acute) Respiratory failure with hypoxia (Acute) Chronic Problems HLD (hyperlipidemia) (Chronic) HTN (hypertension) (Chronic) PAD (peripheral artery disease) (Chronic) CAD (coronary artery disease) (Chronic) COPD (chronic obstructive pulmonary disease) (Chronic) Tobacco dependence (Chronic) CKD (chronic kidney disease) (Chronic) Leukocytosis (Chronic) Anemia (Chronic) BPH (benign prostatic hyperplasia) (Chronic) Plan - admit to PCU - continue lasix 80mg repeat in am - CBC, BMP and BNTP in am - BIPAP overnight - consider consult cardiology in am - if improved, testing has been done recently and perhaps the patient can be discharged home - continue routine home medications - LMWH for DVT proiphylaxis Code Visit Inpatient E AND M: 01542 Init Hosp L3 05/15/182148 <Electronically signed by Arnaldo Jennings MD> Date Arnaldo Jennings MD Cosign Signature: Date (if applicable) CC: SEUN Berger; Arnaldo Jennings MD Signed BLOOD GASES BY [facility] Collected: 05/15/2018 Status: F Source: EDDIE 8:46 PM [facility] REPOSITORY TYPE CODE TESTS RESULT OUT OF RANGE REFERENCE UNITS LAB L9000.9990 Normal BLD GAS TYPE ART LAB L9001.1000 Normal SITE L Radial LAB L9001.1010 Normal MARY TEST POS LAB L9001.1050 O2 Normal Delivery Dev Bi / C PAP LAB L9001.1070 RR Normal 12 LAB L9001.1074 Normal FI02 30 LAB L9001.1088 Normal IPAP 16 LAB L9001.1090 Normal EPAP 8 LAB L9001.1104 Normal Results To ED LAB L9001.1105 Normal Time Given 2041 LAB L9001.1110 7.35-7.45 High pH - I-STAT 7.48 LAB L9001.1210 35-45 mmHg Low pCO2 - ISTAT 33.8 LAB L9001.1310 75-100 mmHG Normal PO2 I-STAT 89 LAB L9001.2300 22-26 mmol/L Normal HCO3 ISTAT 25.0 LAB L9001.2400 -2 to +2 mmol/L BE Normal ISTAT 1 LAB L9001.2415 mmol/L Normal TOTAL CO2 26 ISTAT LAB L9001.2425 95-99 % Normal SO2 ISTAT 98 Performed By: #### L9000.0800 #### [facility] Point of Care [address] [place] [address] CBC W/DIFF, AUTOMATED Collected: 05/15/2018 Status: F Source: [place] 8:10 PM [facility] REPOSITORY TYPE CODE TESTS RESULT OUT OF RANGE REFERENCE UNITS LAB L100.1000 4.4-11.0 K/mm3 High WBC 12.7 LAB L100.1200 4.6-6.2 M/mm3 Low RBC 3.45 LAB L100.1300 13.0-16.5 g/dl Low HGB 10.7 LAB L100.1400 40-54 % Low HCT 34.0 LAB L100.1500 80-94 fL High MCV 98.6 LAB L100.1600 27.0-32.0 pg Normal MCH 31.0 LAB L100.1700 32-36 g/gl Low MCHC 31.5 LAB L100.1810 11.6-14.6 % High RDW CV 18.1 LAB L100.1820 35.1-43.9 fl High RDW SD 62.5 LAB L100.1900 150-450 K/mm3 Normal PLT 266 LAB L100.2000 6.2-12.0 fl Normal MPV 9.5 LAB L100.2100 47-70 % High NEUT% 86.1 LAB L100.2200 19-41 % Low LY% 7.2 LAB L100.2300 0-10 % Normal MONO% 5.7 LAB L100.2400 0-5 % Normal EO% 0.0 LAB L100.2500 0-1 % Normal BASO% 0.1 LAB L100.2550 0.0-0.9 % Normal IM GRAN % 0.900 Result Comment: IG% - Immature Granulocytes (promyelocytes, myelocytes and metamyelocytes) > 1% indicates that a LEFT SHIFT is Present. LAB L100.2620 2.0-7.7 X10 3/uL High Absolute Neut 11.0 LAB L100.2720 0.83-4.51 X10 3/ul Normal Absolute Lymph 0.92 Performed By: #### L100.0100 #### [facility] [address] [place], [address] BASIC METABOLIC Collected: 05/15/2018 Status: F Source: [place] PROFILE (BMP) 8:10 PM [facility] REPOSITORY TYPE CODE TESTS RESULT OUT OF RANGE REFERENCE UNITS LAB L501.0100 74-106 mg/dL High GLU 151 Result Comment: Fasting Glucose result greater than or equal to 126 mg/dL suggests DIABETES MELLITUS per A.D.A. criteria. Please note revised GLUCOSE reference range effective 2017. LAB L501.1000 7-18 mg/dL High BUN 42 LAB L501.1100 0.70-1.30 mg/dL High CREAT,SERUM 1.50 Result Comment: The validity of the calculated GFR AND GFRAA in patients over 70 years has not been determined. Clinical correlation is essential. LAB L501.1110 >60 mL/min Low EST GFR 50 Result Comment: Non- GFR Calc LAB L501.1115 >60 mL/min Normal EST GFR - AA 60 Result Comment: GFR Calc LAB L501.1255 ml/min Normal Estimated CRCL 46.87 LAB L501.1300 10-20 RATIO High BUN/CRE 28.0 LAB L501.2200 8.5-10 mg/dL Normal .1 CA 9.4 LAB L501.5300 136-14 mmol/L Low 5 NA 133 LAB L501.5600 3.5-5. mmol/L Normal 1 K 4.3 LAB L501.5900 98-107 mmol/L Normal CL 99 LAB L501.6100 21.0-3 mmol/L Normal 2.0 CO2 25.0 LAB L501.6200 5-15 Normal GAP 9 Performed By: #### L500.2500, L501.4010 #### [facility] [address] [place], [address] TROPONIN-I Collected: 05/15/2018 Status: F Source: EDDIE 8:10 PM [facility] REPOSITORY TYPE CODE TESTS RESULT OUT OF RANGE REFERENCE UNITS LAB L501.4010 <0.045 ng/mL Normal < 0.015 TROPONIN-I Result Comment: TROPONIN-I EXPECTED VALUES <0.045 Negative 0.045 - 0.590 Consistent with Cardiac Damage > OR = 0.600 Critical Value Not every elevated troponin is indicative of SC. These values should be used with clinical judgement in examining the patient's clinical picture for diagnosis. To establish a diagnosis of SC versus myocardial injury, there must be a demonstrated rise and/or fall in the troponin values, in addition to ischemic symptoms, EKG changes, new regional wall motion abnormality, and/or angiographical evidence. PLEASE NOTE: REFERENCE RANGES EDITED 18 Performed By: #### L500.2500, L501.4010 #### [facility] [address] [place], [address] BNP,B-TYPE NATRIURETIC Collected: 05/15/2018 Status: F Source: [place] PEPTIDE 8:10 PM [facility] REPOSITORY TYPE CODE TESTS RESULT OUT OF RANGE REFERENCE UNITS LAB L503.6620 0-100 pg/mL High B-TYPE 1934.6 ALISSA PEP Performed By: #### L503.6620 #### [facility] [address] [place], [address] CHEST 1 VIEW Observed: 05/15/2018 Status: F Source: EDDIE (PORTABLE) 8:06 PM [facility] REPOSITORY [facility] Imaging Services [address] [place] [address] Chest 1 View (Portable) MR#: [id number] Acct: [id number] Name: YENNI GIMENEZ Rep #: [id number] : 1950 M 67 From: Pb Lancaster MD PCP: SEUN Poe Status: REG ER Study: Chest 1 View (Portable) Date of Exam: 05/15/18 Exam# [id number] Ordering Dr: Faraz Cheng MD STUDY: X-RAY CHEST REASON FOR EXAM: Male, 67 years old. Short of breath TECHNIQUE: AP portable COMPARISON: May 10, 2018 FINDINGS: Generalized hyperinflation with mild pulmonary vascular congestion and small bilateral effusions with bibasilar atelectasis.. Heart is enlarged. Normal mediastinum and justyn. Normal visualized pulmonary arteries. Normal visualized aortic arch and descending thoracic aorta. Postsurgical change status post median sternotomy and CABG. Normal visualized thoracic spine. Normal visualized ribs, clavicles, and shoulders. There is no demonstrated abnormality of the visualized soft tissue structures of the upper abdomen. RAD/Chest 1 View (Portable) IMPRESSION: COPD with superimposed mild pulmonary congestion with bilateral effusions and bibasilar atelectasis Electronically Signed: Pb Lancaster MD at 20:32 EDT , Service support , CC: SEUN Berger; Faraz Cheng Specialty Manufacturing Supervisor: Signed DISCHARGE INSTRUCTION Observed: 05/13/2018 Status: F Source: EDDIE 2:21 PM [facility] REPOSITORY [facility] Medical Records Department [address] [place] [address] Instructions for Home/Discharge Instructions 05/13/18 1125 MR#: [id number] Acct: [id number] Name: YENNI GIMENEZ Rep #: [id number] : 1950 67 From: Itz FELIPE PCP: SEUN Poe Status: ADM IN - Discharge Diagnoses Current Active Problems: Current Active and Chronic Problems DAI (acute kidney injury) (Acute) You will use the following diet at home:: Cardiac - <2 grams sodium daily Your food should be the consistency of: Regular Your liquids should be the consistency of: Regular/Thin Discharge Activity: Return to Normal Activity Allergies/Adverse Reactions: Allergies irbesartan [From Avapro] Adverse Reaction (Verified 05/10/18 09:40) Other zolpidem [From Ambien] Adverse Reaction (Verified 05/10/18 09:40) Other Medications to take at Discharge Aspirin [Aspirin, Baby] 81 mg PO DAILY@0800 01/28/18 Clopidogrel Bisulfate [Plavix] 75 mg PO DAILY 01/28/18 Ropinirole HCl [Requip] 1 mg PO QHS 01/28/18 Rosuvastatin Calcium [Crestor] 40 mg PO QHS 01/28/18 Tamsulosin HCl [Flomax] 0.4 mg PO BID 01/28/18 Finasteride [Proscar] 5 mg PO DAILY 04/08/18 Bumetanide 2 mg PO BID #60 tab 04/10/18 Albuterol Aerosols [Ventolin Aerosols] 2.5 mg INHALATION Q4H PRN 05/10/18 Amlodipine [Norvasc] 5 mg PO DAILY 05/10/18 Ferrous Sulfate 325 mg PO BIDCM 05/10/18 Sertraline HCl [Zoloft] 50 mg PO DAILY 05/10/18 Carvedilol [Coreg (Beta Lesa)] 25 mg PO BID #60 tab 05/13/18 Isosorbide Mononitrate [Imdur] 30 mg PO DAILY #30 tab 05/13/18 Prednisone 10 mg PO UD #22 tab 05/13/18 hydrALAZINE [Apresoline] 75 mg PO TID #100 tab 05/13/18 The following prescriptions were given: Carvedilol [Coreg (Beta Lesa)] 25 mg PO BID #60 tab Isosorbide Mononitrate [Imdur] 30 mg PO DAILY #30 tab Prednisone 10 mg PO UD #22 tab hydrALAZINE [Apresoline] 75 mg PO TID #100 tab Primary Care Physician: Wong Berger NP-C [Primary Care Provider] - Please follow up with your Primary Care Physician in: 2 weeks Test Results: Test results from this visit will be discussed in further detail at your follow-up appointment, if applicable. Please Follow Up With: Elie Caicedo MD When: 2 weeks Please Follow Up With: Alvaro Zhou MD When: 1 week Please Follow Up With: Caleb Alaniz MD When: as directed Please Follow Up With: Cardiology - Your physician in [place] When: 2 weeks Proposed Discharge Date: 05/13/18 05/13/18 1129 <Electronically signed by Itz FELIPE> Date Itz FELIPE CC: BARREL LATHE OPERATOR INSIDE-C Wong Berger; Elie Caicedo MD; Chepe Barrientos MD; Alvaro Zhou MD; Elda Hughes MD DISCHARGE SUMMARY Observed: 05/13/2018 Status: F Source: [place] 2:09 PM [facility] REPOSITORY [facility] Medical Records Department [address] [place] [address] Discharge Summary 05/13/18 1336 MR#: [id number] Acct: [id number] Name: YENNI GIMENEZ Rep #: [id number] : 1950 67 From: Itz FELIPE PCP: SEUN Poe Status: ADM IN Location: [place] [id number] <Itz Bennett - Last Filed: 05/13/18 13:36> Discharge Date and Diagnosis - Problem List Patient Problems: Active and Suspected Problems DAI (acute kidney injury) (Acute) Date of Admission: 05/10/18 Date of Discharge: 05/13/18 - Primary Discharge Diagnosis Active and Suspected Problems Acute on chronic hypoxic respiratory failure 2/2 diastolic CHF exacerbation, pulm htn, htn emergency DAI (acute kidney injury) (Acute) Urinary retention 2/2 BPH HTN emergency Renal artery stenosis COPD CAD prior CABG Hyperkalemia 2/2 DAI UTI ruled out HLD Nicotine abuse - Secondary Discharge Diagnosis Chronic Problems HLD (hyperlipidemia) (Chronic) HTN (hypertension) (Chronic) PAD (peripheral artery disease) (Chronic) CAD (coronary artery disease) (Chronic) COPD (chronic obstructive pulmonary disease) (Chronic) Tobacco dependence (Chronic) CKD (chronic kidney disease) (Chronic) Leukocytosis (Chronic) Anemia (Chronic) BPH (benign prostatic hyperplasia) (Chronic) Hospital Course and Treatment Imaging Results: RAD/Chest 1 View (Portable) IMPRESSION: Interstitial edema with small bilateral pleural effusions. No interval change since the previous study. US/Prostate IMPRESSION: Unremarkable ultrasound of the prostate Stress Echo: Interpretation Summary The estimated ejection fraction is 50 %. The patient was titrated from 10 mcg to a maximun of 30 mcg of dobutamine during the stress. Normal, adequate, dobutamine echocardiogram. Negative for ischemia by EKG and echocardiographic criteria. No anginal symptoms noted. Rare PVC noted. Appropriate blood pressure response to dobutamine. Final LVEF is 60%. No complications. Consultations: Sascha - pulmonology Floyd - cardiology Daisy - urology Corbin - nephrology Operations: None Procedures: Stress test Summary of Care Provided: Physical exam on day of discharge: General: Resting comfortably NAD Psych: A/Ox3 normal affect HEENT: PEARRLA AT NC Neck: Supple NT CV: RRR no m/t/r/g/h Resp: Diffuse wheezing Abd: [id number] Soft NT no guarding or rigidity Ext: DP2+= no edema Skin: W/D normal turgor Lymph/Heme: No active bleeding or adenopathy Neuro: CN2-12 intact Hospital course: The patient is a 67 year old M with a history of diastolic CHF, pulmonary hypertension, COPD, CAD status post prior CABG, nicotine abuse, and BPH with a chronic Charles catheter which was recently removed, who presented to the ER with increased shortness of breath and stating that he felt like he was filling up with fluid. He had lower extremity edema, paroxysmal nocturnal dyspnea and orthopnea, chest x-ray consistent with congestive heart failure. He had significantly elevated blood pressure on admission was considered to have hypertensive emergency-he has a history of renal artery stenosis contributing to his blood pressure and congestive heart failure. He appeared to have DAI, hyperkalemia, and had marked leukocytosis however negative urinalysis, unremarkable ABG. He was placed on BiPAP and admitted to the PCU, started on IV Lasix, restarted Charles catheter. Cardiology, critical care, urology, and nephrology were consulted. Potassium and Aldactone were discontinued. Cardiology additionally placed him on hydralazine, Imdur, and switch him to Coreg. The recommended that he later undergo a stress test. This was obtained later on his admission and was negative for ischemia. The patient improved from a volume status, his renal function improved, and he was able to be weaned off oxygen. He developed some wheezing and was placed on a prednisone taper. He was transitioned back to his Bumex dose. The Charles was kept in place to ensure adequate drainage of his bladder. He was discharged home in stable condition. He will need to follow-up with pulmonology, nephrology, urology for his BPH and Charles care, and cardiology, in addition to his PCP. This patient was seen by Itz Bennett PA-C under the supervision of Doctor Duong. [] Discharge Activity: Return to Normal Activity Home Medications: Medications to take at Discharge Aspirin [Aspirin, Baby] 81 mg PO DAILY@0800 01/28/18 Clopidogrel Bisulfate [Plavix] 75 mg PO DAILY 01/28/18 Ropinirole HCl [Requip] 1 mg PO QHS 01/28/18 Rosuvastatin Calcium [Crestor] 40 mg PO QHS 01/28/18 Tamsulosin HCl [Flomax] 0.4 mg PO BID 01/28/18 Finasteride [Proscar] 5 mg PO DAILY 04/08/18 Bumetanide 2 mg PO BID #60 tab 04/10/18 Albuterol Aerosols [Ventolin Aerosols] 2.5 mg INHALATION Q4H PRN 05/10/18 Amlodipine [Norvasc] 5 mg PO DAILY 05/10/18 Ferrous Sulfate 325 mg PO BIDCM 05/10/18 Sertraline HCl [Zoloft] 50 mg PO DAILY 05/10/18 Carvedilol [Coreg (Beta Lesa)] 25 mg PO BID #60 tab 05/13/18 Isosorbide Mononitrate [Imdur] 30 mg PO DAILY #30 tab 05/13/18 Prednisone 10 mg PO UD #22 tab 05/13/18 hydrALAZINE [Apresoline] 75 mg PO TID #100 tab 05/13/18 Following Prescrptions Were Given to Patient: Carvedilol [Coreg (Beta Lesa)] 25 mg PO BID #60 tab Isosorbide Mononitrate [Imdur] 30 mg PO DAILY #30 tab Prednisone 10 mg PO UD #22 tab hydrALAZINE [Apresoline] 75 mg PO TID #100 tab Primary Care Physician: Wong Berger NP-C [Primary Care Provider] - Please follow up with your Primary Care Physician in: 2 weeks Please Follow Up With: Elie Caicedo MD When: 2 weeks Please Follow Up With: Alvaro Zhou MD When: 1 week Please Follow Up With: Caleb Alaniz MD When: as directed Please Follow Up With: Cardiology - Your physician in [place] When: 2 weeks Medical Necessity - Tobacco Use Smoking Status: Light Smoker (<10/day) Meaningful Use Info Meaningful Use Diagnoses (Choose all that apply): CHF - CHF HEATHER/ARB ordered at discharge?: No Reason HEATHER/ARB not ordered?: Worsening renal disease Documented LVEF (%): 50 <Carmen Duong - Last Filed: 05/13/18 14:08> Discharge Date and Diagnosis - Primary Discharge Diagnosis Active and Suspected Problems DAI (acute kidney injury) (Acute) - Secondary Discharge Diagnosis Chronic Problems HLD (hyperlipidemia) (Chronic) HTN (hypertension) (Chronic) PAD (peripheral artery disease) (Chronic) CAD (coronary artery disease) (Chronic) COPD (chronic obstructive pulmonary disease) (Chronic) Tobacco dependence (Chronic) CKD (chronic kidney disease) (Chronic) Leukocytosis (Chronic) Anemia (Chronic) BPH (benign prostatic hyperplasia) (Chronic) Hospital Course and Treatment Summary of Care Provided: The patient is a 67 year old M [] Disposition: Home Minutes spent on discharge:: 45 Patient Condition:: Stable Code Visit Inpatient E AND M: [id number] Disch Hosp 05/13/18 1350 <Electronically signed by Itz FELIPE> Date Itz FELIPE 05/13/18 1409<Electronically signed by Carmen Duong MD> Cosigner Signature (if applicable): Date Carmen Duong MD CC: SEUN Berger; MATTEO Bennett; Carmen Duong MD Signed BASIC METABOLIC Collected: 05/13/2018 Status: F Source: [place] PROFILE (BMP) 6:15 AM [facility] REPOSITORY TYPE CODE TESTS RESULT OUT OF RANGE REFERENCE UNITS LAB L501.0100 74-106 mg/dL Normal GLU 93 Result Comment: Please note revised GLUCOSE reference range effective 2017. LAB L501.1000 7-18 mg/dL High BUN 38 LAB L501.1100 0.70-1.30 mg/dL High CREAT,SERUM 1.32 Result Comment: The validity of the calculated GFR AND GFRAA in patients over 70 years has not been determined. Clinical correlation is essential. LAB L501.1110 >60 mL/min Low EST GFR 58 Result Comment: Non- GFR Calc LAB L501.1115 >60 mL/min Normal EST GFR - AA 70 Result Comment: GFR Calc LAB L501.1255 ml/min Normal Estimated CRCL 51.47 LAB L501.1300 10-20 RATIO High BUN/CRE 28.8 LAB L501.2200 8.5-10 mg/dL Normal .1 CA 8.6 LAB L501.5300 136-14 mmol/L Normal 5 NA 144 LAB L501.5600 3.5-5. mmol/L Normal 1 K 3.8 LAB L501.5900 98-107 mmol/L High CL 108 LAB L501.6100 21.0-3 mmol/L Normal 2.0 CO2 29.0 LAB L501.6200 5-15 Normal GAP 7 Performed By: #### L500.2500 #### [facility] [address] [place], [address] 12 LEAD ELECTROCARDIOGRAM Observed: 05/12/2018 Status: F Source: EDDIE 1:41 PM [facility] REPOSITORY [facility] Cardiovascular Services [address] [place] [address] 12 Lead EKG 05/10/18 0934 MR#: [id number] Acct: [id number] Name: YENNI GIMENEZ Rep #: [id number] : 1950 67 From: Arnaldo Mckeon MD Attending Dr: Carmen Duong MD Status: ADM IN Ordering Dr: Nickolas Mccollum MD Date: 05/10/18 Location: ICU Sex: M C Admitted: 05/10/18 Test Reason : Blood Pressure : / mmHG Vent. Rate : 097 BPM Atrial Rate : 097 BPM P-R Int : 194 ms QRS Dur : 096 ms QT Int : 354 ms P-R-T Axes : 010 086 027 degrees QTc Int : 449 ms Normal sinus rhythm Consider voltage criteria for LVH Poor R wave progression Abnormal ECG Confirmed by LINDA MONTENEGRO, ARNALDO ([id number]), medical transcription editor SHIRA HURD ([id number]) on 05/12/2018 1:40:53 PM Referred By: Nickolas Mccollum Confirmed By:ARNALDO MCKEON MD 05/12/18 1341 Date Arnaldo Mckeon MD CC: SEUN Berger; Carmen Duong MD; Nickolas Mccollum MD Signed BASIC METABOLIC Collected: 05/12/2018 Status: F Source: EDDIE PROFILE (BMP) 5:10 AM [facility] REPOSITORY TYPE CODE TESTS RESULT OUT OF RANGE REFERENCE UNITS LAB L501.0100 74-106 mg/dL High GLU 111 Result Comment: Fasting Glucose result from 100 to 125 mg/dL suggests IMPAIRED HOMEOSTASIS per A.D.A. criteria. Please note revised GLUCOSE reference range effective 2017. LAB L501.1000 7-18 mg/dL High BUN 46 LAB L501.1100 0.70-1.30 mg/dL High CREAT,SERUM 1.39 Result Comment: The validity of the calculated GFR AND GFRAA in patients over 70 years has not been determined. Clinical correlation is essential. LAB L501.1110 >60 mL/min Low EST GFR 54 Result Comment: Non- GFR Calc LAB L501.1115 >60 mL/min Normal EST GFR - AA 66 Result Comment: GFR Calc LAB L501.1255 ml/min Normal Estimated CRCL 48.87 LAB L501.1300 10-20 RATIO High BUN/CRE 33.1 LAB L501.2200 8.5-10 mg/dL Low .1 CA 8.4 LAB L501.5300 136-14 mmol/L Normal 5 NA 140 LAB L501.5600 3.5-5. mmol/L Normal 1 K 4.0 LAB L501.5900 98-107 mmol/L Normal CL 106 LAB L501.6100 21.0-3 mmol/L Normal 2.0 CO2 29.0 LAB L501.6200 5-15 Normal GAP 5 Performed By: #### L500.2500, L501.2300, L501.5200 #### [facility] [address] [place], [address] PHOSPHORUS Collected: 05/12/2018 Status: F Source: [place] 5:10 AM [facility] REPOSITORY TYPE CODE TESTS RESULT OUT OF RANGE REFERENCE UNITS LAB L501.2300 2.5-4.9 mg/dL Normal PHOS 4.2 Performed By: #### L500.2500, L501.2300, L501.5200 #### [facility] [address] [place], [address] MAGNESIUM Collected: 05/12/2018 Status: F Source: [place] 5:10 AM [facility] REPOSITORY TYPE CODE TESTS RESULT OUT OF RANGE REFERENCE UNITS LAB L501.5200 1.6-2.6 mg/dL Normal MG 2.4 Performed By: #### L500.2500, L501.2300, L501.5200 #### [facility] [address] [place], [address] CBC W/DIFF, AUTOMATED Collected: 05/12/2018 Status: F Source: [place] 5:10 AM [facility] REPOSITORY TYPE CODE TESTS RESULT OUT OF RANGE REFERENCE UNITS LAB L100.1000 4.4-11.0 K/mm3 Normal WBC 10.4 LAB L100.1200 4.6-6.2 M/mm3 Low RBC 3.18 LAB L100.1300 13.0-16.5 g/dl Low HGB 9.4 LAB L100.1400 40-54 % Low HCT 31.9 LAB L100.1500 80-94 fL High MCV 100.3 LAB L100.1600 27.0-32.0 pg Normal MCH 29.6 LAB L100.1700 32-36 g/gl Low MCHC 29.5 LAB L100.1810 11.6-14.6 % High RDW CV 18.2 LAB L100.1820 35.1-43.9 fl High RDW SD 62.6 LAB L100.1900 150-450 K/mm3 Normal PLT 251 LAB L100.2000 6.2-12.0 fl Normal MPV 9.7 LAB L100.2100 47-70 % High NEUT% 75.6 LAB L100.2200 19-41 % Low LY% 13.5 LAB L100.2300 0-10 % Normal MONO% 9.8 LAB L100.2400 0-5 % Normal EO% 0.3 LAB L100.2500 0-1 % Normal BASO% 0.2 LAB L100.2550 0.0-0.9 % Normal IM GRAN % 0.600 Result Comment: IG% - Immature Granulocytes (promyelocytes, myelocytes and metamyelocytes) > 1% indicates that a LEFT SHIFT is Present. LAB L100.2620 2.0-7.7 X10 3/uL High Absolute Neut 7.9 LAB L100.2720 0.83-4.51 X10 3/ul Normal Absolute Lymph 1.41 Performed By: #### L100.0100 #### [facility] [address] [place], [place], [address] STRESS TEST ECHO W/O Observed: 05/11/2018 Status: F Source: [place] CONTRAST 5:02 PM [facility] REPOSITORY [facility] Cardiovascular Services [address] [place] [address] Stress Test Echo w/o Contrast MR#: [id number] Acct: [id number] Name: YENNI GIMENEZ Rep #: [id number] : 1950 67 From: Chepe Barrientos MD Primary Care: SEUN Poe Status: ADM IN Ordering Dr: Chepe Barrientos MD Sex: M C Reason For Study: CHF Stress Results Protocol: Dobutamine Stress Echocardiogram Maximum Predicted HR: 154 bpm Target HR: 131 bpm% Maximum Predicted HR: 85 % DurationHeart Rate Stage (mm:ss) (bpm) BPDos eComment BASELINE 81 154/75 DSE- 10 MCG 3:33 92 174/8110.00 DSE- 20 MCG 3:23 10 3 164/7520.00 DSE- 30 MCG 3:52 13 1 182/7430.00ATROPINE 0.25 MG IVP GIVEN @ 1415 RECOVERY 93 166/70 Stress Duration: 10:48 mm:ss Maximum Stress HR: 131 bpm Baseline Echocardiogram Findings The estimated ejection fraction is 50 %. Mild Stress Echo Wall motion Data Resting WMIntermediate WMStress WM Resting Wall Motion Wall Motion Stress No regional wall motion No regional wall motion abnormalities noted. abnormalities noted. EKG Data The baseline ECG displays normal sinus rhythm. The patient was titrated from 10 mcg to a maximun of 30 mcg of dobutamine during the stress. The maximum heart rate attained was 131 beats per minute. This was 85% of maximum predicted heart rate. At peak infusion, upsloping ST changes only were noted, which did not meet the criteria for ischemia. No clinical angina was noted. Interpretation Summary The estimated ejection fraction is 50 %. The patient was titrated from 10 mcg to a maximun of 30 mcg of dobutamine during the stress. Normal, adequate, dobutamine echocardiogram. Negative for ischemia by EKG and echocardiographic criteria. No anginal symptoms noted. Rare PVC noted. Appropriate blood pressure response to dobutamine. Final LVEF is 60%. No complications. Ordering Physician: Chepe Barrientos Referring Physician: Nickolas Mccollum Performed By: Ivelisse Pritchett, RDCS, RVT 05/11/18 1701 Date Chepe Barrientos MD CC: SEUN Berger; Carmen Duong MD; Chepe Barrientos MD; Nickolas Mccollum MD Date Dictated: 05/11/18 1403 Date Transcribed: 05/11/18 170 Specialty Manufacturing Supervisor: Signed CONSULTATION Observed: 05/11/2018 Status: F Source: [place] 5:35 AM [facility] REPOSITORY [facility] Medical Records Department [address] [place] [address] Consultation 05/10/18 1427 MR#: [id number] Acct: [id number] Name: YENNI GIMENEZ Rep #: [id number] : 1950 67 From: Elie Caicedo MD PCP: SEUN Poe Status: ADM IN Y Location: ICU ICU03-1 Problem List (1) UTI (urinary tract infection) Status: Resolved Qualifiers: Urinary tract infection type: catheter-associated UTI Indwelling urinary catheter type: indwelling urethral catheter Encounter type: subsequent encounter Qualified Code(s): T83.511D - Infection and inflammatory reaction due to indwelling urethral catheter, subsequent encounter; N39.0 - Urinary tract infection, site not specified (2) Acute respiratory failure with hypoxia Status: Acute (3) Diastolic CHF Status: Acute Qualifiers: (4) HLD (hyperlipidemia) Status: Chronic Qualifiers: Hyperlipidemia type: unspecified Qualified Code(s): E78.5 - Hyperlipidemia, unspecified (5) HTN (hypertension) Status: Chronic Qualifiers: Hypertension type: essential hypertension Qualified Code(s): I10 - Essential (primary) hypertension (6) PAD (peripheral artery disease) Status: Chronic (7) CAD (coronary artery disease) Status: Chronic Qualifiers: Coronary Disease-Associated Artery/Lesion type: unspecified vessel or lesion type [place] vs. transplanted heart: unspecified whether [place] or transplanted heart Associated angina: angina presence unspecified Qualified Code(s): I25.10 - Atherosclerotic heart disease of [place] coronary artery without angina pectoris (8) COPD (chronic obstructive pulmonary disease) Status: Chronic Qualifiers: COPD type: unspecified COPD Qualified Code(s): J44.9 - Chronic obstructive pulmonary disease, unspecified (9) Tobacco dependence Status: Chronic (10) CKD (chronic kidney disease) Status: Chronic Qualifiers: Chronic kidney disease stage: stage 3 (moderate) Qualified Code(s): N18.3 - Chronic kidney disease, stage 3 (moderate) (11) Anemia Status: Chronic (12) BPH (benign prostatic hyperplasia) Status: Chronic Qualifiers: Lower urinary tract symptom presence: unspecified whether lower urinary tract symptoms present Qualified Code(s): N40.0 - Benign prostatic hyperplasia without lower urinary tract symptoms Reason for Consult Date of Consultation: 05/10/18 Reason for Consultation: Hypoxic respiratory failure History of Present Illness: The patient is a 67 year old M, with past medical history listed below, who presented to [facility] on 05/10/2018 secondary to increasing shortness of breath. Patient reports that he was discharged from the hospital on and over the weekend developed progressive orthopnea, PND, lower extremity edema and dyspnea on exertion. Patient states he was discharged without supplemental oxygen. Patient had also had his Charles catheter removed prior to discharge and had been reporting some difficulty with urination. Patient denied any constitutional symptoms such as fever, chills, nausea or vomiting. On EMS presentation, patient was noted to be 85% on room air. Patient was placed on CPAP therapy and on arrival to the ED was placed on BiPAP 50% FiO2. Patient was given Lasix, nitro drip and transferred to the intensive care unit. After arrival to the intensive care unit, patient had reported subjective improvement in condition. Patient continues on nitroglycerin drip, but has been able to be taken off of BiPAP therapy. Patient is reporting dysuria following Charles placement. Patient has been seen in the past by myself and was told to follow-up 2 weeks after discharge. Unfortunately, patient has not been out of the hospital for 2 weeks since that time to evaluate as an outpatient. Patient has not had any pulmonary function test completed, but has had a CT scan showing emphysematous changes were noted. Patient does continue to smoke intermittently. Patient states she has never been discharged on supplemental oxygen, but was told to use doxycycline for 14 days secondary to pneumonia just prior to last discharge. Patient states he has been compliant with medication therapy. Patient has noted some increased lower extremity edema and erythema, but denies any pain or heat sensation. Patient has endorsed a nonproductive cough. Past Medical History Past Medical History (Chronic Problems): Chronic Problems HLD (hyperlipidemia) (Chronic) HTN (hypertension) (Chronic) PAD (peripheral artery disease) (Chronic) CAD (coronary artery disease) (Chronic) COPD (chronic obstructive pulmonary disease) (Chronic) Tobacco dependence (Chronic) CKD (chronic kidney disease) (Chronic) Leukocytosis (Chronic) Anemia (Chronic) BPH (benign prostatic hyperplasia) (Chronic) Allergies irbesartan [From Avapro] Adverse Reaction (Verified 05/10/18 09:40) Other zolpidem [From Ambien] Adverse Reaction (Verified 05/10/18 09:40) Other Home Medications: Ambulatory Orders Medication Instructions Recorded Aspirin [Aspirin, Baby] 81 mg PO DAILY@0800 01/28/18 Surgical History: coronary bypass surgery, tonsillectomy Smoking Status: Light Smoker (<10/day) - *Family History Maternal History Items: No pertinent history Paternal History Items: No pertinent history Review of Systems Comment: See HPI, otherwise negative 10 systems. Objective: Chest x-ray was personally reviewed and shows bilateral alveolar infiltrates. - Physical Exam General: Alert, Oriented x3, Cooperative, No apparent distress, - - Obese. Localizes appropriately. Appears older than stated age. HEENT: Atraumatic, PERRLA, EOMI, Normocephalic, - - Slight scleral injection without icterus Oral: Moist Mucosa, No Gingival or Mucosal Lesions/ Ulcerations Neck: Supple, No JVD, No Nodes, Trachea Midline Lungs: No rhonchi, No wheeze, Diminished, Rales, - - Symmetric expansion. No dullness to percussion. Cardiovascular: Normal S1, Normal S2, No murmurs, Irregular Rate, No rub noted, No Gallop Abdomen: Bowel Sounds Present, Soft, Non Tender, Non-Distended, Obese Extremities: No clubbing, No cyanosis, Edema Skin: - - Some erythema noted of lower extremities. Does improve with elevation. Musculoskeletal: No Tenderness to Palpation of Joints or Extremities Lymphatic: No Cervical, Supraclavicular, or Inguinal Adenopathy Neurological: Cranial nerves II-XII grossly intact, Neuro grossly intact, Sensory exam intact to light touch and pain Psych/Mental Status: Normal Affect, Flat Affect Vital Signs Temp Pulse Resp BP Pulse Ox 37.0 C 69 18 150/62 H 97 05/10/18 09:29 05/10/18 11:17 05/10/18 13:29 05/10/18 11:17 05/10/18 13:29 Oxygen Flow Rate (L/min) 2 Oxygen Delivery Method Nasal Cannula Weight: 87.9 kg Body Mass Index (BMI) 30.3 Laboratory Tests WBC 27.5 H RBC 3.77 L Hgb 11.1 L WBC RBC Hgb Hct MCV MCH MCHC RDW Clinical Impression(s) from Imaging Studies Chest X-Ray 05/10/18 09:51 IMPRESSION: Interstitial edema with small bilateral pleural effusions. No interval change since the previous study. Electronically Signed: Pradeep Marquez MD at 10:08 EDT , Service support , Assessment/Plan RECOMMENDATIONS 1. Wean oxygen supplementation to keep saturations later than 88% 2. Encourage incentive spirometer 3. Increase activity as tolerated, PT/OT 4. Continue aerosols 5. Okay to use BiPAP overnight while sleeping empirically 6. Obtain records from Dr. Quesada's office in [facility] 7. Ambulatory pulse ox prior to discharge IMPRESSIONS 1. Sepsis secondary to suspected complicated UTI Patient with significant leukocytosis on presentation. Patient is not reporting any fever at this time. Patient does have a nonproductive cough noted. Clinical suspicion for complicated UTI. Cultures are currently pending. Patient recently on doxycycline. Will obtain a UA. If consistent with infection, may need to be started on empiric antibiotics. 2. Acute renal failure Significant worsening compared to previous. Renal has been consulted. Patient does have atrophic left kidney and CT the abdomen/pelvis showed severe renal stenosis. Some concern for postobstructive uropathy secondary to BPH. Urology is consulted. No indication for renal replacement therapy at this time. 3. Acute on chronic diastolic CHF Patient with significant hypoxia on presentation that was originally requiring BiPAP therapy. Patient did respond well to Lasix therapy on presentation. Unclear if significant worsening since discharge is secondary to increased salt load versus underlying rhythm disturbance at home. Patient is currently on nasal cannula oxygen. Would recommend using BiPAP therapy overnight as patient is at high risk for obstructive sleep apnea. Previous echocardiogram did show diastolic dysfunction. Primary internal audit director Dr. Yu [place], [place]. 4. Presumed COPD Records from Dr. Quesada are not available at this time. Patient has not had pulmonary function test, but previous CT did show extensive emphysematous changes. Bronchodilators would be appropriate. Patient does not appear to be in acute exacerbation at this time, therefore steroids are not indicated. 5. Tobacco abuse Encouraged ongoing smoking cessation. Patient has recently relapsed and started smoking again, despite feeling short of breath with exertion. He denies need for nicotine replacement therapy at this time. Thank for the opportunity to participate in this patient's care, please do not hesitate contact us with any further questions or concerns. This note was generated with [employer] dictation software. It may contain incorrect words, spelling, and punctuation that were not noted in checking the note before signing. Code Visit Inpatient Luli AND M: [id number] Init Hosp L3 05/11/18 0535 <Electronically signed by Elie Caicedo MD> Date Elie Caicedo MD Cosigner Signature (if applicable): Date CC: BARREL LATHE OPERATOR INSIDE-C Wong Berger; Elie Caicedo MD; Chepe Barrientos MD; Alvaro Zhou MD; Elda Hughes MD; Nickolas Mccollum MD Signed CBC-COMPLETE BLOOD CNT Collected: 05/11/2018 Status: F Source: EDDIE NO DIFF 4:00 AM [facility] REPOSITORY TYPE CODE TESTS RESULT OUT OF RANGE REFERENCE UNITS LAB L100.1000 4.4-11.0 K/mm3 High WBC 12.1 LAB L100.1200 4.6-6.2 M/mm3 Low RBC 3.24 LAB L100.1300 13.0-16.5 g/dl Low HGB 9.7 LAB L100.1400 40-54 % Low HCT 32.2 LAB L100.1500 80-94 fL High MCV 99.4 LAB L100.1600 27.0-32.0 pg Normal MCH 29.9 LAB L100.1700 32-36 g/gl Low MCHC 30.1 LAB L100.1810 11.6-14.6 % High RDW CV 18.1 LAB L100.1820 35.1-43.9 fl High RDW SD 63.5 LAB L100.1900 150-450 K/mm3 Normal PLT 267 LAB L100.2000 6.2-12.0 fl Normal MPV 9.7 Performed By: #### L100.0500 #### [facility] [address] [place], [address] BASIC METABOLIC Collected: 05/11/2018 Status: F Source: EDDIE PROFILE (BMP) 4:00 AM [facility] REPOSITORY TYPE CODE TESTS RESULT OUT OF RANGE REFERENCE UNITS LAB L501.0100 74-106 mg/dL High GLU 108 Result Comment: Fasting Glucose result from 100 to 125 mg/dL suggests IMPAIRED HOMEOSTASIS per A.D.A. criteria. Please note revised GLUCOSE reference range effective 2017. LAB L501.1000 7-18 mg/dL High BUN 59 LAB L501.1100 0.70-1.30 mg/dL High CREAT,SERUM 1.85 Result Comment: The validity of the calculated GFR AND GFRAA in patients over 70 years has not been determined. Clinical correlation is essential. LAB L501.1110 >60 mL/min Low EST GFR 39 Result Comment: Non- GFR Calc LAB L501.1115 >60 mL/min Low EST GFR - AA 47 Result Comment: GFR Calc LAB L501.1255 ml/min Normal Estimated CRCL 36.72 LAB L501.1300 10-20 RATIO High BUN/CRE 31.9 LAB L501.2200 8.5-10 mg/dL Normal .1 CA 8.7 LAB L501.5300 136-14 mmol/L Normal 5 NA 140 LAB L501.5600 3.5-5. mmol/L Normal 1 K 4.4 LAB L501.5900 98-107 mmol/L Normal CL 106 LAB L501.6100 21.0-3 mmol/L Normal 2.0 CO2 26.0 LAB L501.6200 5-15 Normal GAP 8 Performed By: #### L500.2500 #### [facility] [address] [place], [place], [address] PROSTATE Observed: 05/11/2018 Status: F Source: EDIDE 12:00 AM [facility] REPOSITORY [facility] Imaging Services [address] [place] [address] Prostate MR#: [id number] Acct: [id number] Name: YENNI GIMENEZ Rep #: [id number] : 1950 M 67 From: José Marquez MD PCP: SEUN Poe Status: ADM IN Study: Prostate Date of Exam: 05/11/18 Exam# [id number] Ordering Dr: Alvaro Zhou MD STUDY: PROSTATE ULTRASOUND REASON FOR EXAM: Male, 67 years old. BPH RADIATION DOSAGE (If Supplied By Facility): CTDIvol = ( ) mGy, DLP = ( ) mGycm. Individualized dose optimization techniques were used for this CT.? TECHNIQUE: Sonographic evaluation of the bladder and prostate COMPARISON: CT scan from 04/10/2018 FINDINGS: Bladder is collapsed around a Charles catheter. Prostate measures 2.96 x 2.28 x 2.66 cm for a volume of 9.40 mL. No sonographic evidence of prostate lesion or hyperemia. Seminal vesicles not visualized. US/Prostate IMPRESSION: Unremarkable ultrasound of the prostate Electronically Signed: Pradeep Marquez MD at 10:57 EDT , Service support , CC: SEUN Berger; Alvaro Zhou MD Specialty Manufacturing Supervisor: Signed Observed: 05/10/2018 Status: F Source: EDDIE CULTURE, SPUTUM 11:00 PM [facility] REPOSITORY RE-COLLECT. PREVIOUS SPECIMEN REJECTED DUE TO SPECMIEN INSUFFICIENT. 05/10/182051 Gram Stain Acceptable Specimen? Yes (<25 Epithelial cells per/lpf) Gram Stain 4+ White Blood Cells 2+ Epithelial cells 4+ Gram positive cocci 2+ Gram positive rods Resp. Culture Mixed normal respiratory jaylen. No Haemophilus, Streptococcus pneumoniae, beta-hemolytic Streptococcus or Staphylococcus aureus isolated. Performed By: #### M100.0800 #### [facility] [place], [address] CONSULTATION Observed: 05/10/2018 Status: F Source: EDDIE 6:32 PM [facility] REPOSITORY [facility] Medical Records Department [address] [place] [address] Consultation 05/10/18 1823 MR#: [id number] Acct: [id number] Name: YENNI GIMENEZ Rep #: [id number] : 1950 67 From: Caleb Alaniz MD PCP: SEUN Poe Status: ADM IN Y Location: ICU ICU03-1 Problem List (1) DAI (acute kidney injury) Status: Acute (2) Diastolic CHF Status: Acute Qualifiers: (3) CKD (chronic kidney disease) Status: Chronic Qualifiers: Chronic kidney disease stage: stage 3 (moderate) Qualified Code(s): N18.3 - Chronic kidney disease, stage 3 (moderate) Consultation - Renal 05/10/18 PCP/ Referring MD: Requesting physician: Dr Duong Primary care physician: SEUN Poe Reason for Consultation:: DAI - History of Present Illness History of Present Illness: The patient is a 67 year old M who presented to hospital with dyspnea. He has extensive cardiac history of CAD s/p multiple cardiac stenting in the past, most of his care was in [place] before, recently switched his care to [facility]. CKD stage 3 with baseline creatinine in mid 1 s. depending on volume status, creatinine was as low as 1.1 within last 3 months. also has urinary retention, required charles taken out last admission, now charles back in recently admitted with pneumonia now back in with CHF urology cardiology on case - Allergies Allergies: Allergies irbesartan [From Avapro] Adverse Reaction (Verified 05/10/18 09:40) Other zolpidem [From Ambien] Adverse Reaction (Verified 05/10/18 09:40) Other - Current Medications Current Medications: Current Medications Acetaminophen (Tylenol) 650 mg PO Q6H PRN PRN PRN Reason: Mild Pain (1-3)/Temp > 100.7 F Albuterol Sulfate (Ventolin Aerosols) 2.5 mg INHALATION Q4H PRN PRN Reason: SHORTNESS OF BREATH Albuterol/Ipratropium (Duoneb) 3 ml INHALATION Q6HWA.RT JAIME Last Admin: 05/10/18 17:25 Dose: 3 ml Amlodipine Besylate (Norvasc) 5 mg PO DAILY JAIME Aspirin (Aspirin, Baby) 81 mg PO DAILY@0800 [facility] Atorvastatin Calcium (Lipitor) 80 mg PO QHS [facility] Carvedilol (Coreg) 6.25 mg PO BID [facility] Clopidogrel Bisulfate (Plavix) 75 mg PO DAILY [facility] Famotidine (Pepcid) 20 mg PO DAILY [facility] Ferrous Sulfate (Ferrous Sulfate) [facility] Last Admin: 05/10/18 17:11 Dose: 325 mg Finasteride (Proscar) 5 mg PO DAILY [facility] Furosemide (Lasix) 80 mg IV BID@1000,1800 [facility] Guaifenesin (Mucinex) 600 mg PO BID [facility] Heparin Sodium (Porcine) (Heparin Na) 5,000 unit SC Q8 [facility] Last Admin: 05/10/18 15:30 Dose: 5,000 u Hydralazine HCl (Apresoline) 50 mg PO TID [facility] Last Admin: 05/10/18 15:30 Dose: 50 mg Magnesium Hydroxide (Milk Of Magnesia) 30 ml PO DAILY PRN PRN PRN Reason: Constipation Morphine Sulfate () 1 mg IV Q4H PRN PRN PRN Reason: MOD-SEVERE PAIN (4-10/10) Ondansetron HCl (Zofran) 4 mg IV Q8H PRN PRN PRN Reason: Nausea Pramipexole Dihydrochloride (Mirapex) 0.5 mg PO QHS [facility] Sertraline HCl (Zoloft) 50 mg PO DAILY [facility] Sodium Chloride () 5 - 30 ml IV UD PRN PRN Reason: SALINE FLUSH Last Admin: 05/10/18 17:11 Dose: 10 ml Tamsulosin HCl (Flomax) 0.4 mg PO BID FOR[facility]LY [facility] - Past Medical History Past Medical History (Chronic Problems): Chronic Problems HLD (hyperlipidemia) (Chronic) HTN (hypertension) (Chronic) PAD (peripheral artery disease) (Chronic) CAD (coronary artery disease) (Chronic) COPD (chronic obstructive pulmonary disease) (Chronic) Tobacco dependence (Chronic) CKD (chronic kidney disease) (Chronic) Leukocytosis (Chronic) Anemia (Chronic) BPH (benign prostatic hyperplasia) (Chronic) - Past Surgical History Surgical History: coronary bypass surgery, tonsillectomy - Social History Smoking Status: Light Smoker (<10/day) Alcohol: None Drugs: None - Family History Maternal History Items: No pertinent history Paternal History Items: No pertinent history Review of Systems Constitutional: Denies: Chills, Fever, Weight Change HEENT: Denies: Head Aches, Sinus Congestion, Sinus Drainage Cardiovascular: Denies: Chest Pain, Palpitations Respiratory: Reports: Cough, Shortness of Breath, Shortness of breath at rest. Denies: Sputum production Gastrointestinal: Denies: Abdominal Pain, Nausea, Vomiting Genitourinary: Denies: Dysuria Musculoskeletal: Denies: Joint Pain, Joint Tenderness Skin: Denies: Rash, Wounds Neurological: Denies: Numbness, Tingling, Focal weakness Psychiatric: Denies: Anxiety, Depression, Homicidal Ideations, Suicidal Ideations Hematologic/ Lymphatic: Denies: Easy Bruising, Easy Bleeding Patient Problems: Active and Suspected Problems DAI (acute kidney injury) (Acute) - Physical Exam General: Alert, Oriented x3, Cooperative HEENT: Atraumatic, PERRLA, EOMI, Normocephalic Neck: Supple, No JVD, Negative Carotid Bruits Lungs: Clear to auscultation, Normal air movement Cardiovascular: Regular rate, No murmurs Abdomen: Bowel Sounds Present, Soft, Non Tender Extremities: No edema, Capillary Refill Less than 3 Seconds Skin: No rashes, No breakdown Musculoskeletal: No Tenderness to Palpation of Joints or Extremities Neurological: Cranial nerves II-XII grossly intact Psych/Mental Status: Normal Affect, Appropriate Vital Signs Temp Pulse Resp BP Pulse Ox 98.1 F 71 26 H 152/50 H 96 05/10/18 16:00 05/10/18 17:25 05/10/18 17:25 05/10/18 16:30 05/10/18 16:30 Oxygen Flow Rate (L/min) 3 Oxygen Delivery Method Nasal Cannula Weight: 87.9 kg Body Mass Index (BMI) 30.3 Intake and Output for Last 24 Hours Intake Total 415 / 415 Output Total 900 / 900 Balance -485 / -485 Laboratory Tests Past 24 Hrs Sodium 136 Potassium 5.1 Chloride 102 Carbon Dioxide 25.0 Anion Gap 9 BUN 62 H Sodium Potassium Chloride Carbon Dioxide Anion Gap BUN Creatinine Estim Creat Clear Calc Assessment/Plan All Active Problems DAI (acute kidney injury) (Acute) Pneumonia (Acute) UTI (urinary tract infection) (Resolved) Sepsis (Resolved) Acute respiratory failure with hypoxia (Acute) Diastolic CHF (Acute) Respiratory failure with hypoxia (Acute) DAI. Baseline creatinine at the time of dc from [facility] in february was 1.1. recently in mid 1s. UA looks benign. SPEP negative. DAI is likely cardiorenal Renal artery stenosis. significant history of smoking. coronary, PVD. has cardiac stents and from imaging studies looks like he has a aortobifemoral graft with possible mesentric stent. CT abdomen from last month shows Left kidney is atrophic and is likely dysfunctional right renal artery has extensive calcification at origin (this was a non contrast study). Likely has stenosis, possibly hemodynamically significant looking at anatomy on CT, he has extensive calcification all over aorta and most of renal artery. Echo is not too bad I suspect he may have hemodynamically significant renal A stenosis thats contributing to CHF episodes d/w Dr Barrientos. If plan is for angiogram this hospitalization, might be worthwhile to get a renal angiogram same time. not sure if stenting is possible with extensive calcification. may need vascular surgery evaluation. 05/10/18 1832 <Electronically signed by Caleb Alaniz MD> Date Caleb Alaniz MD Cosigner Signature (if applicable): Date CC: SEUN Berger; Elie Caicedo MD; Chepe Barrientos MD; Alvaro Zhou MD; Elda Hughes MD; Nickolas Mccollum MD Signed HISTORY AND PHYSICAL Observed: 05/10/2018 Status: F Source: [place] EXAM 5:55 PM [facility] REPOSITORY [facility] Medical Records Department [address] [place] [address] History and Physical 05/10/18 1112 MR#: [id number] Acct: [id number] Name: YENNI GIMENEZ Rep #: [id number] : 1950 67 From: Carmen Duong MD PCP: SEUN Poe Status: ADM IN Y Location: ICU ICU03-1 ADDENDUM by Carmen Duong MD on 05/10/18 at 1755 Code Visit Procedures: 13650 Advncd Care Plan 30 Min 05/10/18 1755 <Electronically signed by Carmen Duong MD> Date Carmen Duong MD cc: SEUN Berger; Carmen Duong MD * Signed Problem List (1) Acute respiratory failure with hypoxia Status: Acute (2) HLD (hyperlipidemia) Status: Chronic Qualifiers: Hyperlipidemia type: unspecified Qualified Code(s): E78.5 - Hyperlipidemia, unspecified (3) HTN (hypertension) Status: Chronic Qualifiers: Hypertension type: essential hypertension Qualified Code(s): I10 - Essential (primary) hypertension (4) CAD (coronary artery disease) Status: Chronic Qualifiers: Coronary Disease-Associated Artery/Lesion type: unspecified vessel or lesion type [place] vs. transplanted heart: unspecified whether [place] or transplanted heart Associated angina: angina presence unspecified Qualified Code(s): I25.10 - Atherosclerotic heart disease of [place] coronary artery without angina pectoris (5) COPD (chronic obstructive pulmonary disease) Status: Chronic Qualifiers: COPD type: unspecified COPD Qualified Code(s): J44.9 - Chronic obstructive pulmonary disease, unspecified (6) BPH (benign prostatic hyperplasia) Status: Chronic Qualifiers: Lower urinary tract symptom presence: unspecified whether lower urinary tract symptoms present Qualified Code(s): N40.0 - Benign prostatic hyperplasia without lower urinary tract symptoms History of Present Illness Date of Admission: 05/10/18 Chief Complaint: Shortness of breath - ongoing for days The patient is a 67 year old M with past medical history of chronic diastolic CHF, pulmonary hypertension, CAD status post CABG, BPH status post chronic Charles catheter with recent removal of Charles catheter, less than a week ago. He comes in with complaints of shortness of breath ongoing for almost a week. This is associated with orthopnea and PND as well as bilateral lower extremity edema. He states that his Charles catheter was removed by Dr. Zhou less than a week and he is backing up with fluid. He thinks his shortness shortness of breath has to do with the Charles catheter that has been removed. Denies chest pain or dizziness or palpitations or fever or chills. He denied eating anything that has high sodium. His states that in the last 3 days of note is that he has been gaining weight. He took an extra Lasix but he still feels short of breath and was orthopneic and had PND. He called the EMS, and the EMS found him to be saturating 85% on room air. He was put on CPAP and brought into the emergency room. In the ED, his temperature 98.6 F, heart rate of 102, blood pressure 174/70, respiratory rate was 18, his blood gas showed pH of 7.43, PCO2 of 42, PO2 of 99%(done on BiPAP), SPO2 is 98% on 50% FiO2 with BiPAP. CBC D show WBC count of 27.5, hemoglobin is 11.1, platelets was 349, sodium 134, potassium 6.0, bicarb 7, chloride 99, BUN 64, creatinine 2.44. He was discharged in creatinine 1.55, Chest x-ray showed interstitial edema with bilateral pleural effusions, patient was started on nitro drip and given 80 mg of IV Lasix Past Medical History Past Medical History (Chronic Problems): Chronic Problems HLD (hyperlipidemia) (Chronic) HTN (hypertension) (Chronic) PAD (peripheral artery disease) (Chronic) CAD (coronary artery disease) (Chronic) COPD (chronic obstructive pulmonary disease) (Chronic) Tobacco dependence (Chronic) CKD (chronic kidney disease) (Chronic) Leukocytosis (Chronic) Anemia (Chronic) BPH (benign prostatic hyperplasia) (Chronic) Allergies irbesartan [From Avapro] Adverse Reaction (Verified 05/10/18 09:40) Other zolpidem [From Ambien] Adverse Reaction (Verified 05/10/18 09:40) Other Home Medications: Ambulatory Orders Medication Instructions Recorded Aspirin [Aspirin, Baby] 81 mg PO DAILY@0800 01/28/18 Clopidogrel Bisulfate [Plavix] 75 mg PO DAILY 01/28/18 Surgical History: coronary bypass surgery, tonsillectomy Smoking Status: Light Smoker (<10/day) - *Family History Maternal History Items: No pertinent history Paternal History Items: No pertinent history Review of Systems Constitutional: Denies: Anorexia, Chills, Fever, Malaise, Weakness, Weight Change Eyes: Denies: Blurred vision, Cataracts, Conjunctivae Inflammation, Pain, Redness, Vision Change HEENT: Denies: Difficulty Hearing, Difficulty Swallowing, Head Aches, Hearing Changes, Sinus Congestion, Sinus Drainage, Sore Throat Cardiovascular: Denies: Chest Pain, Claudication, Orthopnea, Palpitations, Paroxysmal Noc. Dyspnea Respiratory: Reports: Shortness of Breath, Shortness of breath at rest, Shortness of breath upon exertion. Denies: Cough, Hemoptysis, Sputum production Gastrointestinal: Denies: Abdominal Pain, Constipation, Hematemesis, Hematochezia, Nausea, Vomiting Genitourinary: Denies: Dysuria, Frequency, Incontinence Musculoskeletal: Denies: Joint Pain, Joint stiffness, Joint swelling, Joint Tenderness Skin: Denies: Pruritis, Rash, Wounds Neurological: Denies: Difficulty swallowing, Focal weakness, Numbness, Tingling Psychiatric: Denies: Anxiety, Depression, Homicidal Ideations, Suicidal Ideations Hematologic/ Lymphatic: Denies: Easy Bruising, Easy Bleeding VTE Information - Inpt Only VTE Present on Admission: No VTE Pharm Prophylaxis ordered?: Yes - Physical Exam General: Alert, Oriented x3, Cooperative, - - Moderate respiratory distress, on BiPAP mask HEENT: Atraumatic, PERRLA, EOMI, Normocephalic Oral: Dry Mucosa Neck: Supple Lungs: Clear to auscultation, Normal air movement Cardiovascular: Regular rate, Regular Rhythm, Normal S1, Normal S2, No murmurs Abdomen: Bowel Sounds Present, Soft, Non Tender, Non-Distended, No Hepato-splenomegaly Extremities: Edema - +1 bilateral pedal edema Skin: No rashes Musculoskeletal: No Tenderness to Palpation of Joints or Extremities Lymphatic: No Cervical, Supraclavicular, or Inguinal Adenopathy Neurological: Cranial nerves II-XII grossly intact, Neuro grossly intact Psych/Mental Status: Normal Affect, Appropriate Vital Signs Temp Pulse Resp BP Pulse Ox 98.6 F 74 36 H 147/56 H 95 05/10/18 09:29 05/10/18 10:21 05/10/18 10:21 05/10/18 10:21 05/10/18 10:21 Oxygen Delivery Method Bi-pap Weight: 88.904 kg Body Mass Index (BMI) 29.7 Finger Stick Blood Glucose 200 Laboratory Tests Past 24 Hrs POC Glucose POC Glucose 200 H Assessment/Plan All Active Problems Pneumonia (Acute) UTI (urinary tract infection) (Resolved) Sepsis (Resolved) Acute respiratory failure with hypoxia (Acute) Diastolic CHF (Acute) Respiratory failure with hypoxia (Acute) 67 year old M with past medical history of chronic diastolic CHF, pulmonary hypertension, CAD status post CABG, BPH status post chronic Charles catheter with recent removal of Charles catheter, less than a week ago seen with shortness of breath, orthopnea and PND 1. Acute on chronic hypoxic respiratory failure secondary to acute on chronic diastolic CHF, on BiPAP, will continue same, repeat ABG, wean off for SPO2 more than 94%. 2. Acute on chronic diastolic CHF, unclear etiology for this exacerbation, patient was taking all his medications, given 80 mg IV Lasix in the ED, will repeat BMP, and continue from there, strict I's and O's, daily weights, low-salt diet 3. DAI on CKD stage III, last discharge was creatinine 1.55, currently admitted with creatinine of 2.44, BUN 64, likely cardiorenal vs post-renal, would repeat BMP, nephrology consult 4. Hyperkalemia secondary to likely DAI, admitting potassium was 6.0, repeat BMP and manage subsequently 5. Leukocytosis, likely reactive, no source of infection, trend CBC D 6. CAD status post CABG, on Plavix, statin 7. Hypertension, controlled, continue home medication 8. Hyperlipidemia, on statin 9. BPH status post Charles catheter, patient will need urology to see him prior to discharge 10. DVT prophylaxis-heparin subcu 11. GI prophylaxis with famotidine 12. Code status: Full Discussed CODE STATUS with the patient's family in the room- and 2 daughters. Discussed the different types of CODE STATUS and explained the differences in detail. Patient states that in the event that something happens he does not want to be on machines but if that will mean that nothing else can be done. I explained that it typically does not work like that because if he should have an arrest, we need to as quickly. Family decided to keep him full code for now Time spent at the bedside was 18 minutes Code Visit Inpatient E AND M: 58061 Init Hosp L3 05/10/18 1310 <Electronically signed by Carmen Duong MD> Date Carmen Duong MD Cosigner Signature: Date (if applicable) CC: SEUN Berger; Carmen Duong MD Signed CONSULTATION Observed: 05/10/2018 Status: F Source: [place] 5:12 PM [facility] REPOSITORY [facility] Medical Records Department [address] [place] [address] Consultation 05/10/18 1638 MR#: [id number] Acct: [id number] Name: YENNI GIMENEZ Rep #: [id number] : 1950 67 From: Chepe Barrientos MD PCP: SEUN Poe Status: ADM IN Y Location: ICU ICU03 Problem List (1) Acute respiratory failure with hypoxia Status: Acute (2) HLD (hyperlipidemia) Status: Chronic Qualifiers: Hyperlipidemia type: unspecified Qualified Code(s): E78.5 - Hyperlipidemia, unspecified (3) HTN (hypertension) Status: Chronic Qualifiers: Hypertension type: essential hypertension Qualified Code(s): I10 - Essential (primary) hypertension (4) PAD (peripheral artery disease) Status: Chronic (5) CAD (coronary artery disease) Status: Chronic Qualifiers: Coronary Disease-Associated Artery/Lesion type: unspecified vessel or lesion type [place] vs. transplanted heart: unspecified whether [place] or transplanted heart Associated angina: angina presence unspecified Qualified Code(s): I25.10 - Atherosclerotic heart disease of [place] coronary artery without angina pectoris (6) CKD (chronic kidney disease) Status: Chronic Qualifiers: Chronic kidney disease stage: stage 3 (moderate) Qualified Code(s): N18.3 - Chronic kidney disease, stage 3 (moderate) Reason for Consult Date of Consultation: 05/10/18 Reason for Consultation: Congestive heart failure, shortness of breath, coronary disease, hypertension, hyperlipidemia, peripheral vascular disease, recent pneumonia, chronic renal insufficiency History of Present Illness: The patient is a 67 year old M, formerly seen by myself in the distant past at [facility], with a history of hypertension, hypercholesterolemia, obesity, coronary artery disease status post multiple stents in the past, total of 13 stents per the patient, most recent stenting in [place] in May 2017. In addition he underwent three-vessel bypass surgery in 2010 but the patient cannot recall whether his stents are in the bypass grafts or not. Patient continues to smoke intermittently, and was discharged last after being admitted to [facility] for pneumonia. Over the last 24-48 hours he has had worsening lower extremity edema, shortness of breath, orthopnea and PND. He presented to [facility] ER in respiratory distress and was placed on BiPAP therapy, given IV Lasix and started on IV nitroglycerin drip. He was weaned off his BiPAP therapy and is currently on nitro drip. In addition he denies any chest pain, is compliant with his medications, as well as his fluid restriction. Patient underwent a 2D echo with Doppler on 04/07/18 which showed an EF around 55%, RVSP 42 mmHg, and stage II diastolic dysfunction. Patient has had no stress testing since his stent in May 2017. [] Past Medical History Allergies/Adverse Reactions: Allergies irbesartan [From Avapro] Adverse Reaction (Verified 05/10/18 09:40) Other zolpidem [From Ambien] Adverse Reaction (Verified 05/10/18 09:40) Other Home Medications: Ambulatory Orders Medication Instructions Recorded Aspirin [Aspirin, Baby] 81 mg PO DAILY@0800 01/28/18 Past Medical History (Chronic Problems): Chronic Problems HLD (hyperlipidemia) (Chronic) HTN (hypertension) (Chronic) PAD (peripheral artery disease) (Chronic) CAD (coronary artery disease) (Chronic) COPD (chronic obstructive pulmonary disease) (Chronic) Tobacco dependence (Chronic) CKD (chronic kidney disease) (Chronic) Leukocytosis (Chronic) Anemia (Chronic) BPH (benign prostatic hyperplasia) (Chronic) Surgical History: coronary bypass surgery, tonsillectomy - *Family History Maternal History Items: No pertinent history Paternal History Items: No pertinent history Smoking Status: Light Smoker (<10/day) Alcohol: None Drugs: None Review of Systems - Review of Systems General: Denies: Fever, Night Sweats, Fatigue Cardiovascular: Reports: Shortness of Breath, Shortness of Breath at Rest, Orthopnea, PND, Peripheral Edema. Denies: Chest Discomfort, Palpitations, Lightheadedness, Dizziness, Near Syncope, Syncope Respiratory: Denies: Cough, Sputum Production, Hemoptysis Gastrointestinal: Denies: Hematemesis, Hematochezia, Melena Genitourinary: Denies: Dysuria, Hematuria Skin: Denies: Rash Subjectve: Patient laying in bed, no acute distress. Objective: Vital Signs Temp Pulse Resp BP Pulse Ox 97.3 F L 68 24 H 142/42 H 96 05/10/18 14:00 05/10/18 15:30 05/10/18 14:30 05/10/18 15:30 05/10/18 14:30 Oxygen Flow Rate (L/min) 3 Oxygen Delivery Method Nasal Cannula Weight: 193 lb 12.581 oz Body Mass Index (BMI) 30.3 General: Awake, Alert, Oriented x 3 HEENT: PERRL, EOMI, Sclera Non Icteric Neck: Supple, Good ROM, No Lymph Node Enlargement Lungs: Rales - Viral Bases Cardiovascular: Regular Rhythm, Normal S1, Normal S2, No Rubs, No Gallops Vascular: No Carotid Bruits, Normal Femoral Pulses, Normal Radial Pulses, Normal Dorsalis Pedal Pulse, Normal Posterior Tibial Pulses Abdomen: Bowel Sounds Present, Soft, Non Tender, No HSM, No Organomegaly Extremities: No Cyanosis, No Clubbing, No edema, Bilateral Edema +1 Neurological: No Focal Motor or Sensory Deficit 05/10/18 12:55: Sodium 136, Potassium 5.1, Chloride 102, Carbon Dioxide 25.0, Anion Gap 9, BUN 62 H, Creatinine 2.26 H, Est GFR (MDRD) Af Amer 38 L, Est GFR (MDRD) Non-Af 31 L, BUN/Creatinine Ratio 27.4 H, Glucose 136 H, Calcium 8.5 05/10/18 12:55: Troponin I < 0.015 05/10/18 14:55: Urine Color Yellow, Urine Clarity Clear, Urine pH 6.5, Ur Specific [place] 1.010, Urine Protein 15 H, Urine Glucose (UA) Normal, Urine Ketones Negative, Urine Occult Blood Negative, Urine Nitrite Negative, Urine Bilirubin Negative, Urine Urobilinogen Normal, Ur Leukocyte Esterase 25 H, Urine RBC 0-5 SEEN, Urine WBC 0-5 SEEN 05/10/18 15:45: Troponin I < 0.015 Rhythm: EKG: ECHO: Stress Test: Cardiac Cath: PCI: CT Surgery: Holter monitor: EPS: PPM: CXR: Chest CT Scan: Assessment/Plan 1. Congestive heart failure: The patient had recently been admitted for pneumonia, and returns now with congestive heart failure including hypoxia, dyspnea, orthopnea, PND, and lower extremity edema. His echocardiogram done recently showed intact LV function with stage II diastolic dysfunction and at least mild pulmonary hypertension. At this point I would recommend Lasix IV 80 mg twice daily, Imdur 60 mg a day, hydralazine 25 mg p.o. twice daily, and switching to Coreg 6.25 mg p.o. twice daily once he is reached his dry weight. Would recommend ruling out for myocardial infarction, and once he is reached his dry weight undergoing a noninvasive stress test given his history of coronary artery disease. If this is grossly abnormal he may require repeat coronary angiogram and graft angiography. Patient is a history of 13 stents, the most recent of which was in May 2017 at an outside facility. 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 2. Hyperlipidemia: Recommend obtaining a fasting lipid profile. Continue statin based medication. His LDL should be less than 70. 3. Tobacco cessation: I had a long and thorough discussion with the patient regarding tobacco use and have strongly recommended discontinuation of all tobacco products. 4. Discussed with Dr. Caicedo and Dr. Duong. Thank you very much for the opportunity to participate in the cardiac care of your patient. Consultation time took place between 4 PM and 4:30 PM. Code Visit Inpatient E AND M: 14226 Init Hosp L2 05/10/18 8880 <Electronically signed by Chepe Barrientos MD> Date Chepe Barrientos MD Cosigner Signature (if applicable): Date CC: [employer] Wong Berger; Elie Caicedo MD; Chepe Barrientos MD; Alvaro Zhou MD; Elda Hughes MD; Nickolas Mccollum MD Signed CONSULTATION Observed: 05/10/2018 Status: F Source: [place] 4:07 PM [facility] REPOSITORY [facility] Medical Records Department [address] [place] [address] Consultation 05/10/18 1603 MR#: [id number] Acct: [id number] Name: YENNI GIMENEZ Rep #: [id number] : 1950 67 From: Alvaro Zhou MD PCP: SEUN Poe Status: ADM IN Y Location: ICU ICU03-1 Problem List (1) BPH (benign prostatic hyperplasia) Status: Chronic Qualifiers: Lower urinary tract symptom presence: unspecified whether lower urinary tract symptoms present Qualified Code(s): N40.0 - Benign prostatic hyperplasia without lower urinary tract symptoms Reason for Consult Date of Consultation: 05/10/18 Reason for Consultation: Urinary retention and BPH with obstruction History of Present Illness: The patient is a 67 year old male who I saw in the office after hospitalization for heart problems we were in the process of getting his prostate worked up for an outpatient microwave treatment and he is now back in the hospital again with congestive heart failure and pneumonia also has retention of urine. He would probably be a fairly difficult candidate for anesthesia for a TURP given his cardiac history so her plan to do an outpatient treatment of his prostate with microwave therapy. For now he was going to see me tomorrow in the office for preoperative planning for an ultrasound of the cystoscopy I have just do an ultrasound here in the hospital to determine size the prostate for treatment planning for his prostate we will build to the microwave while he is in the hospital for now. Past Medical History Past Medical History (Chronic Problems): Chronic Problems HLD (hyperlipidemia) (Chronic) HTN (hypertension) (Chronic) PAD (peripheral artery disease) (Chronic) CAD (coronary artery disease) (Chronic) COPD (chronic obstructive pulmonary disease) (Chronic) Tobacco dependence (Chronic) CKD (chronic kidney disease) (Chronic) Leukocytosis (Chronic) Anemia (Chronic) BPH (benign prostatic hyperplasia) (Chronic) Allergies irbesartan [From Avapro] Adverse Reaction (Verified 05/10/18 09:40) Other zolpidem [From Ambien] Adverse Reaction (Verified 05/10/18 09:40) Other Home Medications: Ambulatory Orders Medication Instructions Recorded Aspirin [Aspirin, Baby] 81 mg PO DAILY@0800 01/28/18 Surgical History: coronary bypass surgery, tonsillectomy Smoking Status: Light Smoker (<10/day) Alcohol: None Drugs: None - *Family History Maternal History Items: No pertinent history Paternal History Items: No pertinent history Review of Systems Constitutional: Denies: Chills, Fever, Weight Change HEENT: Denies: Head Aches, Sinus Congestion, Sinus Drainage Cardiovascular: Denies: Chest Pain, Palpitations Respiratory: Reports: Shortness of Breath. Denies: Cough, Sputum production Gastrointestinal: Denies: Abdominal Pain, Nausea, Vomiting Genitourinary: Reports: Dysuria, Retention Musculoskeletal: Denies: Joint Pain, Joint Tenderness Skin: Denies: Rash, Wounds Neurological: Denies: Numbness, Tingling, Focal weakness Psychiatric: Denies: Anxiety, Depression, Homicidal Ideations, Suicidal Ideations Hematologic/ Lymphatic: Denies: Easy Bruising, Easy Bleeding Physical Exam - Physical Exam Vital Signs Temp 97.3 F L 05/10/18 14:00 Pulse 68 05/10/18 15:30 Resp 24 H 05/10/18 14:30 BP 142/42 H 05/10/18 15:30 Pulse Ox 96 05/10/18 14:30 Intake AND Output Weight: 87.9 kg General: Alert, Oriented x3 HEENT: Atraumatic Oral: Moist Mucosa Neck: Supple Lungs: Normal air movement Abdomen: Soft Laboratory Tests Past 24 Hrs Sodium 136 Potassium 5.1 Chloride 102 Carbon Dioxide 25.0 Anion Gap 9 BUN 62 H Sodium Potassium Chloride Carbon Dioxide Anion Gap BUN Creatinine Estim Creat Clear Calc Assessment/Plan All Active Problems Pneumonia (Acute) UTI (urinary tract infection) (Resolved) Sepsis (Resolved) Acute respiratory failure with hypoxia (Acute) Diastolic CHF (Acute) Respiratory failure with hypoxia (Acute) 67-year-old male with a history of BPH with obstruction currently the catheter immediately back in retention really has difficulty urinating significant outlet obstruction. I will order an ultrasound of his prostate. He does have an appointment with me tomorrow and want to cancel that since he is in the hospital. And my office will then contact him to set him up for microwave treatment in the office once he is discharged from the hospital in stable condition. 05/10/18 6722 <Electronically signed by Alvaro Zhou MD> Date Alvaro Zhou MD Cosigner Signature (if applicable): Date CC: ARMEN-Izabel Berger; Elie Caicedo MD; Chepe Barrientos MD; Alvaro Zhou MD; Elda Hughes MD; Nickolas Mccollum MD Signed TROPONIN-I Collected: 05/10/2018 Status: F Source: [place] 3:45 PM [facility] REPOSITORY Order Comment: 'TROP' Serial specimen #1, #2 or #3: 3 'TROP' Serial specimen #1, #2, #3, or #4: 3 TYPE CODE TESTS RESULT OUT OF RANGE REFERENCE UNITS LAB L501.4010 <0.045 ng/mL Normal < 0.015 TROPONIN-I Result Comment: TROPONIN-I EXPECTED VALUES <0.045 Negative 0.045 - 0.590 Consistent with Cardiac Damage > OR = 0.600 Critical Value Not every elevated troponin is indicative of SC. These values should be used with clinical judgement in examining the patient's clinical picture for diagnosis. To establish a diagnosis of SC versus myocardial injury, there must be a demonstrated rise and/or fall in the troponin values, in addition to ischemic symptoms, EKG changes, new regional wall motion abnormality, and/or angiographical evidence. PLEASE NOTE: REFERENCE RANGES EDITED 18 Performed By: #### L501.4010 #### [facility] [address] [place], [address] URINALYSIS, COMPLETE Collected: 05/10/2018 Status: F Source: [place] 2:55 PM [facility] REPOSITORY Order Comment: How was Urine Obtained? ARBORIST REPRESENTATIVE TO SPECIFY TYPE CODE TESTS RESULT OUT OF RANGE REFERENCE UNITS LAB L400.3000 Yellow COLOR Normal Yellow LAB L400.3050 Clear Normal CLARITY Clear LAB L400.3200 Normal mg/dl Normal GLUCOSE, UR Normal LAB L400.3300 Negative mg/dL Normal BILIRUBIN URINE Negative LAB L400.3400 Negative mg/dl Normal KETONE UR Negative LAB L400.3465 1.002-1.030 Normal SP.GR. DIPSTX 1.010 LAB L400.3550 5.0 - 8.0 pH UR Normal 6.5 LAB L400.3600 Negative mg/dl High PROT 15 DIPSTX LAB L400.3700 Normal mg/dl Normal UROBILI Normal LAB L400.3750 Negative Normal NITRITE UR Negative LAB L400.3780 Negative /ul Normal OCCULT BLOOD-UR Negative LAB L400.3800 Negative /ul High LEUK 25 ESTERASE LAB L400.4050 0-5 /hpf WBC Normal 0-5 SEEN LAB L400.4100 0-5 /hpf Normal RBC-UA 0-5 SEEN LAB L400.4150 0-5 /hpf SQUAM 0 Normal EPI SEEN LAB L400.4300 None Seen /hpf 0 Normal BACTERIA SEEN LAB L400.4350 <or=2+ /hpf 0 Normal MUCUS, URINE SEEN Performed By: #### L400.0001 #### [facility] [address] [place], [address] Observed: 05/10/2018 Status: F Source: [place] CULTURE, URINE 2:20 PM [facility] REPOSITORY Urine Culture Culture exhibits no growth. Performed By: #### M100.0650 #### [facility] [address] [place], [address] BLOOD GASES BY CPS Collected: 05/10/2018 Status: F Source: [place] 1:16 PM [facility] REPOSITORY TYPE CODE TESTS RESULT OUT OF RANGE REFERENCE UNITS LAB L9000.9990 Normal BLD GAS TYPE ART LAB L9001.1000 Normal SITE L Radial LAB L9001.1010 Normal MARY TEST POS LAB L9001.1050 O2 Normal Delivery Dev Nasal Can LAB L9001.1055 /min Normal LPM 2.0 LAB L9001.1104 Normal Results To HOSP MD LAB L9001.1105 Normal Time Given 1320 LAB L9001.1110 7.35-7.45 pH Normal - I-STAT 7.43 LAB L9001.1210 35-45 mmHg Low pCO2 - ISTAT 33.3 LAB L9001.1310 75-100 mmHG Low PO2 I-STAT 51 LAB L9001.2300 22-26 mmol/L Normal HCO3 ISTAT 22.2 LAB L9001.2400 -2 to +2 mmol/L BE Normal ISTAT -2 LAB L9001.2415 mmol/L Normal TOTAL CO2 23 ISTAT LAB L9001.2425 95-99 % Low SO2 ISTAT 87 Performed By: #### L9000.0800 #### [facility] Point of [facility] [address] [place], [place] [address] BASIC METABOLIC Collected: 05/10/2018 Status: F Source: [place] PROFILE (BMP) 12:55 PM [facility] REPOSITORY TYPE CODE TESTS RESULT OUT OF RANGE REFERENCE UNITS LAB L501.0100 74-106 mg/dL High GLU 136 Result Comment: Fasting Glucose result greater than or equal to 126 mg/dL suggests DIABETES MELLITUS per A.D.A. criteria. Please note revised GLUCOSE reference range effective 2017. LAB L501.1000 7-18 mg/dL High BUN 62 LAB L501.1100 0.70-1.30 mg/dL High CREAT,SERUM 2.26 Result Comment: The validity of the calculated GFR AND GFRAA in patients over 70 years has not been determined. Clinical correlation is essential. LAB L501.1110 >60 mL/min Low EST GFR 31 Result Comment: Non- GFR Calc LAB L501.1115 >60 mL/min Low EST GFR - AA 38 Result Comment: GFR Calc LAB L501.1255 ml/min Normal Estimated CRCL 30.06 LAB L501.1300 10-20 RATIO High BUN/CRE 27.4 LAB L501.2200 8.5-10 mg/dL Normal .1 CA 8.5 LAB L501.5300 136-14 mmol/L Normal 5 NA 136 LAB L501.5600 3.5-5. mmol/L Normal 1 K 5.1 Result Comment: Slight Hemolysis, Result may be falsely increased. LAB L501.5900 98-107 mmol/L Normal CL 102 LAB L501.6100 21.0-32.0 mmol/L Normal CO2 25.0 LAB L501.6200 5-15 Normal 9 GAP Performed By: #### L500.2500 #### [facility] [address] [place], [address] TROPONIN-I Collected: 05/10/2018 Status: F Source: [place] 12:55 PM [facility] REPOSITORY Order Comment: 'TROP' Serial specimen #1, #2 or #3: 2 TYPE CODE TESTS RESULT OUT OF RANGE REFERENCE UNITS LAB L501.4010 <0.045 ng/mL Normal < 0.015 TROPONIN-I Result Comment: TROPONIN-I EXPECTED VALUES <0.045 Negative 0.045 - 0.590 Consistent with Cardiac Damage > OR = 0.600 Critical Value Not every elevated troponin is indicative of SC. These values should be used with clinical judgement in examining the patient's clinical picture for diagnosis. To establish a diagnosis of SC versus myocardial injury, there must be a demonstrated rise and/or fall in the troponin values, in addition to ischemic symptoms, EKG changes, new regional wall motion abnormality, and/or angiographical evidence. PLEASE NOTE: REFERENCE RANGES EDITED 18 Performed By: #### L501.4010 #### [facility] [address] [place], [address] M R STAPH AUREUS Collected: 05/10/2018 Status: F Source: [place] DNA BY PCR 12:50 PM [facility] REPOSITORY TYPE CODE TESTS RESULT OUT OF REFERENCE UNITS RANGE LAB L8200.1100 Negative High MRSA POSITIVE RESULT Performed By: #### L8200.1000 #### [facility] [address] [facility] [place], [address] Observed: 05/10/2018 Status: F Source: [place] CULTURE, BLOOD (WB) 11:50 AM [facility] REPOSITORY BC No growth in 5 days. Performed By: #### M200.1000 #### [facility] [address] [place], [address] EMERGENCY DEPARTMENT Observed: 05/10/2018 Status: F Source: [place] SUMMARY 11:03 AM [facility] REPOSITORY [facility] Medical Records Department [address] [place] [address] Emergency Department Summary 05/10/18 0951 MR#: [id number] Acct: [id number] Name: YENNI GIMENEZ Rep #: [id number] : 1950 67 From: Nickolas Mccollum MD PCP: SEUN Poe Status: REG ER - ER Visit Summary Date of Service: 05/10/18 Chief Complaint: Respiratory distress History of Present Illness: The patient is a 67 M who was recently admitted to the hospital for congestive heart failure and pneumonia who presents because of abrupt onset of shortness of breath. He denies fever, chills night sweats. He denies chest pain, neck pain, jaw pain or upper extremity discomfort. He has slept in a chair for the past 8 years. He has history of chronic pedal edema. History is limited to severity of illness Physical Examination: Patient is in respiratory distress with paradoxical breathing. He is hypertensive, tachycardic and tachypneic. He is presently on BiPAP with a saturation of 96%. Head is atraumatic normocephalic. Pupils equal round reactive. Sclerae anicteric. Conjunctive is pink. Trach is midline. There is no stridor. There is no dysphonia or dysphasia. Lungs reveal rales bilaterally. Heart is regular without murmur, gallop or rub. Abdomen distended tympanitic and nontender. Lower extremity exam is remarkable 2+ pitting edema. Distal pulses are palpable. Test Results: EKG reveals a sinus rhythm rate of 97 with LVH and repolarization. SC interval is normal. QRS duration slightly prolonged. Portable chest x-ray interpreted by me as significant congestion consistent with congestive heart failure. White count is 27.5 thousand with 69 segs no bands 19 lymphs. H AND H 11.1 and 37.3. Electrolyte panels marked for slight elevation in potassium at 6.0. CO2 BUN is 64 creatinine 2.4 and glucose 195. Troponin is normal. Lactate is normal. ABG reveals a pH of 7.36 PCO2 of 42 which is elevated for a patient breathing 34 times a minute and a PO2 of 81 on BiPAP. Emergency Department Course and Treatment: With abrupt onset of shortness of breath need to rule out cardiac ischemia with CHF, worsening COPD, pneumothorax, pulmonary embolus. To evaluate patient CBC, CMP, lactate, troponin and ABG was obtained since he is on BiPAP with distress. Concern for CO2 retention. In light of bilateral rales with history of CHF and bilateral pedal edema concerned this represents exacerbation of heart failure. Since her is slight wheezing which may represent CHF versus COPD he did receive a DuoNeb treatment. Treatment may change or very pending portable chest x-ray results. Treatment Plan: Since patient's chest x-ray reveals heart failure he was started on a nitro drip for preload reduction. Since clinically he is fluid overloaded he received 80 mg of Lasix IV push. White count may be a stress response since there is no shift. Disposition: Patient to be admitted to ICU since he still has paradoxical breathing even though he is improved. Impression: 1. Respiratory failure with hypoxia and hypercapnia. 2. Acute exacerbation of CHF/pulmonary edema 3. Leukocytosis unknown etiology 4. Anemia of chronic illness 5. History of hypertension 6. History of chronic renal failure This note was generated with [employer]ation software. It may contain incorrect words, spelling, and punctuation that were not noted in review of the chart prior to signing EKG reveals a sinus rhythm rate of 97 with evidence of LVH with repolarization changes. SC interval is normal. QRS interval slightly prolongated. ED Disposition - Plan for ED Patient: Chief Complaint: Shortness of Breath Referrals: Wong Berger, ARMEN-C [Primary Care Provider] - What to do if you have Problems For any increased pain, shortness of breath, bleeding, nausea or vomiting, chest pain, or any unexpected problems, contact your Primary Care Provider. Call [facility] ([phone]) or report to the closest Emergency Room. Call 911 if necessary. 05/10/18 1103 <Electronically signed by Nickolas Mccollum MD> Date Nickolas Mccollum MD Cosigner Signature (If Indicated): Date CC: SEUN Berger BLOOD GASES BY [facility] Collected: 05/10/2018 Status: F Source: [place] 9:53 AM [facility] REPOSITORY TYPE CODE TESTS RESULT OUT OF RANGE REFERENCE UNITS LAB L9000.9990 Normal BLD GAS TYPE ART LAB L9001.1000 Normal SITE R Radial LAB L9001.1010 Normal MARY TEST POS LAB L9001.1050 O2 Normal Delivery Dev Bi / C PAP LAB L9001.1070 RR Normal 12 LAB L9001.1074 Normal FI02 35 LAB L9001.1088 Normal IPAP 16 LAB L9001.1090 Normal EPAP 12 LAB L9001.1104 Normal Results To HOSP MD LAB L9001.1105 Normal Time Given 945 LAB L9001.1110 7.35-7.45 pH Normal - I-STAT 7.37 LAB L9001.1210 35-45 mmHg Normal pCO2 - ISTAT 42.2 LAB L9001.1310 75-100 mmHG Normal PO2 I-STAT 81 LAB L9001.2300 22-26 mmol/L Normal HCO3 ISTAT 24.3 LAB L9001.2400 -2 to +2 mmol/L BE Normal ISTAT -1 LAB L9001.2415 mmol/L Normal TOTAL CO2 26 ISTAT LAB L9001.2425 95-99 % Normal SO2 ISTAT 95 Performed By: #### L9000.0800 #### [facility] Point of Care [address] [place] [address] BEDSIDE GLUCOSE Collected: 05/10/2018 Status: F Source: [place] 9:49 AM [facility] REPOSITORY TYPE CODE TESTS RESULT OUT OF REFERENCE UNITS RANGE LAB L501.080 70-110 mg/dL High BEDSIDE GLU 200 Result Comment: MANAGEMENT OF PATIENT CARE PER NURSING PROTOCOL Performed By: #### L501.080 #### [facility] Point of Care [address] [place] [address] CHEST 1 VIEW Observed: 05/10/2018 Status: F Source: [place] (PORTABLE) 9:43 AM [facility] REPOSITORY [facility] Imaging Services [address] [place] [address] Chest 1 View (Portable) MR#: [id number] Acct: [id number] Name: YENNI GIMENEZ Rep #: [id number] : 1950 M 67 From: José Marquez MD PCP: SEUN Poe Status: REG ER Study: Chest 1 View (Portable) Date of Exam: 05/10/18 Exam# [id number] Ordering Dr: Nickolas Mccollum MD STUDY: X-RAY CHEST REASON FOR EXAM: Male, 67 years old. Respiratory distress, recent pneumonia TECHNIQUE: Single AP portable view of the chest. COMPARISON: 05/01/2018 FINDINGS: EKG leads overlie the chest. Lungs are expanded, persistent interstitial edema noted in the lung bases with blunting of both costophrenic angles unchanged as well. Little significant interval change noted since the previous study. Sternal cerclage wires and vascular clips are present from a prior sternotomy and coronary artery bypass graft procedure (CABG). Normal mediastinum and justyn. Normal visualized pulmonary arteries. There is atherosclerotic calcification of the aortic arch with tortuosity. There are diffuse degenerative changes of the visualized thoracic spine. Normal visualized ribs, clavicles, and shoulders. There is no demonstrated abnormality of the visualized soft tissue structures of the upper abdomen. RAD/Chest 1 View (Portable) IMPRESSION: Interstitial edema with small bilateral pleural effusions. No interval change since the previous study. Electronically Signed: Pradeep Marquez MD at 10:08 EDT , Service support , CC: SEUN Berger; Nickolas Mccollum MD Specialty Manufacturing Supervisor: Signed CBC W/DIFF, AUTOMATED Collected: 05/10/2018 Status: C Source: [place] 9:30 AM [facility] REPOSITORY TYPE CODE TESTS RESULT OUT OF RANGE REFERENCE UNITS LAB L100.1000 4.4-11.0 K/mm3 High WBC 27.5 LAB L100.1200 4.6-6.2 M/mm3 Low RBC 3.77 LAB L100.1300 13.0-16.5 g/dl Low HGB 11.1 LAB L100.1400 40-54 % Low HCT 37.3 LAB L100.1500 80-94 fL High MCV 98.9 LAB L100.1600 27.0-32.0 pg Normal MCH 29.4 LAB L100.1700 32-36 g/gl Low MCHC 29.8 LAB L100.1810 11.6-14.6 % High RDW CV 18.5 LAB L100.1820 35.1-43.9 fl High RDW SD 66.2 LAB L100.1900 150-450 K/mm3 Normal PLT 345 LAB L100.2000 6.2-12.0 fl Normal MPV 9.6 LAB L100.2100 47-70 % Normal NEUT% 68.8 LAB L100.2200 19-41 % Low LY% 18.7 LAB L100.2300 0-10 % Normal MONO% 9.7 LAB L100.2400 0-5 % Normal EO% 1.9 LAB L100.2500 0-1 % Normal BASO% 0.1 LAB L100.2550 0.0-0.9 % Normal IM GRAN % 0.800 Result Comment: IG% - Immature Granulocytes (promyelocytes, myelocytes and metamyelocytes) > 1% indicates that a LEFT SHIFT is Present. LAB L100.2620 2.0-7.7 X10 3/uL High Absolute Neut 18.9 LAB L100.2720 0.83-4.51 X10 3/ul High Absolute Lymph 5.15 LAB L100.4500 Normal SMEAR COMMENT COMMENT Result Comment: SLIDE SCANNED - MONOCYTOSIS,LYMPHOCYTOSIS, 1+ ANISO. LAB L100.9900 Normal Reviewed PATH REV Result Comment: Leukocytosis. Clinical correlation necessary. Tonio Mccray M.D. 05/11/18 AMENDED REPORT 05/11/18 1516 PATH REV previously reported as: February Performed By: #### L100.0100 #### [facility] [address] [place], [place], [address] LACTIC ACID Collected: 05/10/2018 Status: F Source: [place] 9:30 AM [facility] REPOSITORY Order Comment: Yes/No query for Sepsis Lactate Rule Y TYPE CODE TESTS RESULT OUT OF RANGE REFERENCE UNITS LAB L503.6005 0.4-2.0 mmol/L Normal LACTIC ACID 1.4 Performed By: #### L503.6005 #### [facility] [address] [place], [address] COMPREHENSIVE METABOLIC Collected: 05/10/2018 Status: F Source: [place] MICHEL 9:30 AM [facility] REPOSITORY TYPE CODE TESTS RESULT OUT OF RANGE REFERENCE UNITS LAB L501.0100 74-106 mg/dL High GLU 195 Result Comment: Fasting Glucose result greater than or equal to 126 mg/dL suggests DIABETES MELLITUS per A.D.A. criteria. Please note revised GLUCOSE reference range effective 2017. LAB L501.1000 7-18 mg/dL High BUN 64 LAB L501.1100 0.70-1.30 mg/dL High CREAT,SERUM 2.44 Result Comment: The validity of the calculated GFR AND GFRAA in patients over 70 years has not been determined. Clinical correlation is essential. LAB L501.1110 >60 mL/min Low EST GFR 28 Result Comment: Non- GFR Calc LAB L501.1115 >60 mL/min Low EST GFR - AA 34 Result Comment: GFR Calc LAB L501.1255 ml/min Normal Estimated CRCL 28.81 LAB L501.1300 10-20 RATIO High BUN/CRE 26.2 LAB L501.1500 6.4-8. g/dL Normal 2 T PROT 7.7 LAB L501.1800 3.2-5. g/dL Normal 0 ALB 3.6 LAB L501.1950 2.2-4. g/dL Normal 2 GLOB 4.1 LAB L501.2000 0.9-2. RATIO Normal 4 A/G 0.9 LAB L501.2200 8.5-10 mg/dL Normal .1 CA 8.8 LAB L501.4100 15-37 U/L Normal AST 25 LAB L501.4305 45-117 U/L Normal ALK P 82 LAB L501.4405 16-61 U/L Normal ALT 28 LAB L501.4600 0.20-1 mg/dL Normal .00 T BILI 0.70 LAB L501.5300 136-14 mmol/L Low 5 NA 134 LAB L501.5600 3.5-5. mmol/L High 1 K alert 6.0 Result Comment: Critical Result(s) Called at: 10:11:05 05/10/2018 by: Carly Lemus to LSparr LAB L501.5900 98-107 mmol/L Normal CL 99 LAB L501.6100 21.0-32.0 mmol/L Normal CO2 27.0 LAB L501.6200 5-15 Normal GAP 8 Performed By: #### L500.4050, L501.4010 #### [facility] [address] [place], [address] TROPONIN-I Collected: 05/10/2018 Status: F Source: [place] 9:30 AM [facility] REPOSITORY TYPE CODE TESTS RESULT OUT OF RANGE REFERENCE UNITS LAB L501.4010 <0.045 ng/mL Normal < 0.015 TROPONIN-I Result Comment: TROPONIN-I EXPECTED VALUES <0.045 Negative 0.045 - 0.590 Consistent with Cardiac Damage > OR = 0.600 Critical Value Not every elevated troponin is indicative of SC. These values should be used with clinical judgement in examining the patient's clinical picture for diagnosis. To establish a diagnosis of SC versus myocardial injury, there must be a demonstrated rise and/or fall in the troponin values, in addition to ischemic symptoms, EKG changes, new regional wall motion abnormality, and/or angiographical evidence. PLEASE NOTE: REFERENCE RANGES EDITED 18 Performed By: #### L500.4050, L501.4010 #### [facility] [address] [place], [address] Observed: 05/10/2018 Status: F Source: [place] CULTURE, BLOOD (WB) 9:30 AM [facility] REPOSITORY BC No growth in 5 days. Performed By: #### M200.1000 #### [facility] [address] [facility] [place], [address] BMP Collected: 05/09/2018 Status: F Source: [place] 2:18 PM [facility] REPOSITORY TYPE CODE TESTS RESULT OUT OF RANGE REFERENCE UNITS LAB 74329421(L 70-99 mg/dL OINC) High Glucose Lvl 120 LAB 19414992(L 7-18 mg/dL OINC) High BUN 56 LAB 2801786(LO 0.6-1.3 mg/dL INC) High Creatinine 1.9 LAB 25161726(L 5.4-30.0 ratio OINC) Normal BUN/Creat Ratio 29.5 LAB 52386345(L 8.4-10.2 mg/dL OINC) Calcium Normal Lvl 8.9 LAB 30074133(L 136-145 mEq/L OINC) Low Sodium Lvl 132 LAB 53475187(L 3.5-5.1 mEq/L OINC) Normal Potassium Lvl 4.5 LAB 71121823(L 98-107 mEq/L OINC) Low Chloride 96 LAB 63049439(L 24.0-30.0 mEq/L OINC) Low CO2 23.0 Performed By: #### [id number] #### [facility] [address] [place] [address] EGFR Collected: 05/09/2018 Status: F Source: [place] 2:18 PM [facility] REPOSITORY Order Comment: Order added by Discern Expert. TYPE CODE TESTS RESULT OUT OF RANGE REFERENCE UNITS LAB 05656707(LO mL/min/1.73 INC) m2 Normal eGFR 36 LAB 84596795(LO mL/min/1.73 INC) m2 Normal eGFR AA 43 Performed By: #### [id number] #### [facility] [address] [place] [address] DISCHARGE SUMMARY Observed: 05/04/2018 Status: F Source: [place] 1:22 PM [facility] REPOSITORY [facility] Medical Records Department [address] [place] [address] Discharge Summary 05/04/18 0951 MR#: [id number] Acct: [id number] Name: YENNI GIMENEZ Rep #: [id number] : 1950 67 From: Manoj Christensen MD PCP: SEUN Poe Status: DIS IN Y Location: [place] [address]-1 Discharge Date and Diagnosis - Problem List Patient Problems: Active and Suspected Problems Pneumonia (Acute) Date of Admission: 05/01/18 Date of Discharge: 05/04/18 - Primary Discharge Diagnosis Active and Suspected Problems Pneumonia (Acute) - Secondary Discharge Diagnosis Chronic Problems HLD (hyperlipidemia) (Chronic) HTN (hypertension) (Chronic) PAD (peripheral artery disease) (Chronic) CAD (coronary artery disease) (Chronic) COPD (chronic obstructive pulmonary disease) (Chronic) Tobacco dependence (Chronic) CKD (chronic kidney disease) (Chronic) Leukocytosis (Chronic) Anemia (Chronic) BPH (benign prostatic hyperplasia) (Chronic) Hospital Course and Treatment Operations: None Summary of Care Provided: Patient is a 67-year-old gentleman who presented with exertional fatigue and progressive shortness of breath. Checks x-ray obtained on admission demonstrated bilateral pleural effusion with atelectasis. Patient was also noted to have elevated BNP and assessment of acute congestive heart failure made admitted to a monitored bed for further management 1. Acute diastolic congestive heart failure: Echo on 04/08/2018 demonstrated features consistent with diastolic dysfunction with an EF of 55% and mild pulmonary hypertension with RSVP of 42 mmHg patient has been admitted to monitored bed managed with fluid restriction, strict input and output daily weights as well as IV Lasix 2. Acute respiratory failure present on admission patient was placed on BiPAP which has since been weaned off. Plan is for patient to be assessed for home oxygen needs prior to discharge. Patient did not qualify he was therefore not discharged home with oxygen 3. Pneumonia: Suspected to be secondary to streptococci pneumonia. Patient placed on Levaquin and supplemental oxygen titrated to keep also is greater than 90 4. CAD with previous CABG patient is on Plavix as well as statin therapy 5. Hypertension-blood pressure controlled, home medications continued with dose adjustment as needed 6. Dyslipidemia-patient is on statin therapy, continued at home dose 7. COPD; nebs prn chest x-ray obtained on admission could not rule out an infectious etiology CT of the chest without contrast subsequently ordered 8. BPH, status post chronic Charles catheter 9. Chronic kidney disease stage III patient kidney function appears to be at baseline 10. DVT prophylaxis SC Lovenox Discharge Diet: 8 Cup Fluid Restriciton Discharge Activity: Return to Normal Activity, May not drive while taking narcotic pain medications. Home Medications: Medications to take at Discharge Aspirin [Aspirin, Baby] 81 mg PO DAILY@0800 01/28/18 Clopidogrel Bisulfate [Plavix] 75 mg PO DAILY 01/28/18 Metoprolol Succinate 100 mg PO DAILY 01/28/18 Ropinirole HCl [Requip] 1 mg PO DAILY 01/28/18 Rosuvastatin Calcium [Crestor] 40 mg PO DAILY 01/28/18 Spironolactone 25 mg PO BID 01/28/18 Tamsulosin HCl [Flomax] 0.4 mg PO BID 01/28/18 hydrALAZINE [Apresoline] 25 mg PO BID 01/28/18 Ferrous Sulfate 325 mg PO BIDCM #60 tab 01/30/18 Ipratropium/Albuterol Sulfate [Duoneb] 3 ml INHALATION Q4H.RT #120 ampul.neb 01/30/18 Finasteride [Proscar] 5 mg PO DAILY 04/08/18 Potassium Chloride [K-Dur] 10 meq PO DAILY 04/08/18 Amlodipine [Norvasc] 5 mg PO DAILY #30 tab 04/10/18 Bumetanide 2 mg PO BID #60 tab 04/10/18 Guaifenesin [Mucinex] 600 mg PO BID #14 tab 04/10/18 Doxycycline [Vibramycin] 100 mg PO BID #14 cap 05/04/18 Furosemide [Lasix] 40 mg PO BIDLX #120 tab 05/04/18 Following Prescrptions Were Given to Patient: Doxycycline [Vibramycin] 100 mg PO BID #14 cap Furosemide [Lasix] 40 mg PO BIDLX #120 tab Primary Care Physician: Wong Berger NP-C [Primary Care Provider] - Please follow up with your Primary Care Physician in: [place] 5- 7 DAYS Please Follow Up With: Alvaro Zhou MD When: ON 05/04/18 Disposition: Home Minutes spent on discharge:: 40 Patient Condition:: Stable Medical Necessity - Tobacco Use Smoking Status: Light Smoker (<10/day) Meaningful Use Info Meaningful Use Diagnoses (Choose all that apply): CHF - CHF HEATHER/ARB ordered at discharge?: No Reason HEATHER/ARB not ordered?: Worsening renal disease Documented LVEF (%): 65 Code Visit Inpatient E AND M: [id number] Disch Hosp 05/04/18 1322 <Electronically signed by Manoj Christensen MD> Date Manoj Christensen MD Cosigner Signature (if applicable): Date CC: ARMEN-Izabel Berger; Manoj Christensen MD Signed DISCHARGE INSTRUCTION Observed: 05/04/2018 Status: F Source: [place] 9:48 AM [facility] REPOSITORY [facility] Medical Records Department [address] [place] [address] Instructions for Home/Discharge Instructions 05/04/18 0945 MR#: [id number] Acct: [id number] Name: YENNI GIMENEZ Rep #: [id number] : 1950 67 From: Manoj Christensen MD PCP: SEUN Poe Status: ADM IN You will use the following diet at home:: Fluid restricted (specify 2000 mls, 1500 mls) - 1500 Allergies/Adverse Reactions: Allergies irbesartan [From Avapro] Adverse Reaction (Verified 05/01/18 21:43) Other zolpidem [From Ambien] Adverse Reaction (Verified 05/01/18 21:43) Other Medications to take at Discharge Aspirin [Aspirin, Baby] 81 mg PO DAILY@0800 01/28/18 Clopidogrel Bisulfate [Plavix] 75 mg PO DAILY 01/28/18 Metoprolol Succinate 100 mg PO DAILY 01/28/18 Ropinirole HCl [Requip] 1 mg PO DAILY 01/28/18 Rosuvastatin Calcium [Crestor] 40 mg PO DAILY 01/28/18 Spironolactone 25 mg PO BID 01/28/18 Tamsulosin HCl [Flomax] 0.4 mg PO BID 01/28/18 hydrALAZINE [Apresoline] 25 mg PO BID 01/28/18 Ferrous Sulfate 325 mg PO BIDCM #60 tab 01/30/18 Ipratropium/Albuterol Sulfate [Duoneb] 3 ml INHALATION Q4H.RT #120 ampul.neb 01/30/18 Finasteride [Proscar] 5 mg PO DAILY 04/08/18 Potassium Chloride [K-Dur] 10 meq PO DAILY 04/08/18 Amlodipine [Norvasc] 5 mg PO DAILY #30 tab 04/10/18 Bumetanide 2 mg PO BID #60 tab 04/10/18 Guaifenesin [Mucinex] 600 mg PO BID #14 tab 04/10/18 Doxycycline [Vibramycin] 100 mg PO BID #14 cap 05/04/18 Furosemide [Lasix] 40 mg PO BIDLX #120 tab 05/04/18 The following prescriptions were given: Doxycycline [Vibramycin] 100 mg PO BID #14 cap Furosemide [Lasix] 40 mg PO BIDLX #120 tab Primary Care Physician: Wong Berger NP-C [Primary Care Provider] - Please follow up with your Primary Care Physician in: [place] 5- 7 DAYS Test Results: Test results from this visit will be discussed in further detail at your follow-up appointment, if applicable. Please Follow Up With: Alvaro Zhou MD When: ON 05/04/18 Proposed Discharge Date: 05/04/18 05/04/18 0948 <Electronically signed by Manoj Christensen MD> Date Manoj Christensen MD CC: SEUN Berger BASIC METABOLIC Collected: 05/04/2018 Status: F Source: [place] PROFILE (BMP) 5:50 AM [facility] REPOSITORY TYPE CODE TESTS RESULT OUT OF RANGE REFERENCE UNITS LAB L501.0100 74-106 mg/dL High GLU 118 Result Comment: Fasting Glucose result from 100 to 125 mg/dL suggests IMPAIRED HOMEOSTASIS per A.D.A. criteria. Please note revised GLUCOSE reference range effective 2017. LAB L501.1000 7-18 mg/dL High BUN 41 LAB L501.1100 0.70-1.30 mg/dL High CREAT,SERUM 1.55 Result Comment: The validity of the calculated GFR AND GFRAA in patients over 70 years has not been determined. Clinical correlation is essential. LAB L501.1110 >60 mL/min Low EST GFR 48 Result Comment: Non- GFR Calc LAB L501.1115 >60 mL/min Low EST GFR - AA 58 Result Comment: GFR Calc LAB L501.1255 ml/min Normal Estimated CRCL 43.83 LAB L501.1300 10-20 RATIO High BUN/CRE 26.5 LAB L501.2200 8.5-10 mg/dL Normal .1 CA 8.8 LAB L501.5300 136-14 mmol/L Normal 5 NA 138 LAB L501.5600 3.5-5. mmol/L Low 1 K 3.4 LAB L501.5900 98-107 mmol/L Normal CL 99 LAB L501.6100 21.0-3 mmol/L Normal 2.0 CO2 32.0 LAB L501.6200 5-15 Normal GAP 7 Performed By: #### L500.2500 #### [facility] [address] [place], [address] 12 LEAD ELECTROCARDIOGRAM Observed: 05/03/2018 Status: F Source: [place] 2:17 PM [facility] REPOSITORY [facility] Cardiovascular Services [address] [place] [address] 12 Lead EKG 05/01/18 2254 MR#: [id number] Acct: [id number] Name: YENNI GIMENEZ Rep #: [id number] : 1950 67 From: Mick Rm MD Attending Dr: Manoj Christensen MD Status: ADM IN Ordering Dr: Rekha Spring DO Date: 05/01/18 Location: [facility] Sex: M C Admitted: 05/01/18 Test Reason : SOB Blood Pressure : / mmHG Vent. Rate : 092 BPM Atrial Rate : 092 BPM P-R Int : 174 ms QRS Dur : 094 ms QT Int : 380 ms P-R-T Axes : -24 064 078 degrees QTc Int : 469 ms Normal sinus rhythm Left ventricular hypertrophy with repolarization abnormality Abnormal ECG Confirmed by MICK RM MD ([id number]), medical transcription editor SHIRA HURD ([id number]) on 05/03/2018 2:16:59 PM Referred By: CLAUDIA Confirmed By:MICK RM MD 05/03/18 1417 Date Mick Rm MD CC: SEUN Berger; Manoj Christensen MD; Rekha Spring DO Signed CBC-COMPLETE BLOOD CNT Collected: 05/03/2018 Status: F Source: [place] NO DIFF 6:18 AM [facility] REPOSITORY TYPE CODE TESTS RESULT OUT OF RANGE REFERENCE UNITS LAB L100.1000 4.4-11.0 K/mm3 High WBC 12.1 LAB L100.1200 4.6-6.2 M/mm3 Low RBC 3.38 LAB L100.1300 13.0-16.5 g/dl Low HGB 10.4 LAB L100.1400 40-54 % Low HCT 33.4 LAB L100.1500 80-94 fL High MCV 98.8 LAB L100.1600 27.0-32.0 pg Normal MCH 30.8 LAB L100.1700 32-36 g/gl Low MCHC 31.1 LAB L100.1810 11.6-14.6 % High RDW CV 18.5 LAB L100.1820 35.1-43.9 fl High RDW SD 64.6 LAB L100.1900 150-450 K/mm3 Normal PLT 178 LAB L100.2000 6.2-12.0 fl Normal MPV 9.4 Performed By: #### L100.0500 #### [facility] [address] [place], [address] BASIC METABOLIC Collected: 05/03/2018 Status: F Source: [place] PROFILE ([facility]) 6:18 AM [facility] REPOSITORY TYPE CODE TESTS RESULT OUT OF RANGE REFERENCE UNITS LAB L501.0100 74-106 mg/dL High GLU 206 Result Comment: Glucose result greater than or equal to 200 mg/dL suggests DIABETES MELLITUS per A.D.A. criteria. Please note revised GLUCOSE reference range effective 2017. LAB L501.1000 7-18 mg/dL High BUN 40 LAB L501.1100 0.70-1.30 mg/dL High CREAT,SERUM 1.62 Result Comment: The validity of the calculated GFR AND GFRAA in patients over 70 years has not been determined. Clinical correlation is essential. LAB L501.1110 >60 mL/min Low EST GFR 46 Result Comment: Non- GFR Calc LAB L501.1115 >60 mL/min Low EST GFR - AA 55 Result Comment: GFR Calc LAB L501.1255 ml/min Normal Estimated CRCL 41.94 LAB L501.1300 10-20 RATIO High BUN/CRE 24.7 LAB L501.2200 8.5-10 mg/dL Normal .1 CA 8.9 LAB L501.5300 136-14 mmol/L Normal 5 NA 137 LAB L501.5600 3.5-5. mmol/L Low 1 K 3.2 LAB L501.5900 98-107 mmol/L Normal CL 100 LAB L501.6100 21.0-3 mmol/L Normal 2.0 CO2 27.0 LAB L501.6200 5-15 Normal GAP 10 Performed By: #### L500.2500, L501.5200 #### [facility] [address] [place], [address] MAGNESIUM Collected: 05/03/2018 Status: F Source: [place] 6:18 AM [facility] REPOSITORY TYPE CODE TESTS RESULT OUT OF RANGE REFERENCE UNITS LAB L501.5200 1.6-2.6 mg/dL High MG 2.7 Performed By: #### L500.2500, L501.5200 #### [facility] [address] [place], [address] CHEST WITHOUT Observed: 05/02/2018 Status: F Source: [place] CONTRAST 9:52 AM [facility] REPOSITORY [facility] Imaging Services [address] [place] [address] Chest without Contrast MR#: [id number] Acct: [id number] Name: YENNI GIMENEZ Rep #: [id number] : 1950 M 67 From: Deven Hensley MD PCP: SEUN Poe Status: ADM IN Study: Chest without Contrast Date of Exam: 05/02/18 Exam# [id number] Ordering Dr: Manoj Christensen MD STUDY: CT CHEST WITHOUT CONTRAST REASON FOR EXAM: Male, 67 years old. COPD. Wheezing. End-stage chronic renal disease. RADIATION DOSAGE (If Supplied By Facility): CTDIvol = ( 16.32 ) mGy, DLP = ( 537.7 ) mGycm TECHNIQUE: Transaxial imaging was performed without the administration of intravenous contrast material. Multiplanar coronal and sagittal images were reformatted. Individualized dose optimization techniques were used for this CT. COMPARISON: Comparison is made with prior examination dated October 30, 2009. FINDINGS: There are small bilateral pleural effusions with underlying infiltration and/or atelectasis. Emphysematous changes worse in the upper lobes with a small cystic bulla. Sternal cerclage wires and vascular clips are present from a prior sternotomy and coronary artery bypass graft procedure (CABG). There are calcifications of the coronary arteries. There are multiple small lymph nodes within the mediastinum, which are normal in size and morphology most compatible with reactive lymph hyperplasia. Normal hilar regions. Normal unenhanced pulmonary arteries. There is atherosclerotic calcification of the aortic arch with tortuosity and elongation of the aortic arch and descending thoracic aorta. There are multi-level degenerative changes of the thoracic spine. There is no demonstrated abnormality of the visualized upper abdomen. CT/Chest without Contrast IMPRESSION: Small bilateral pleural effusions with underlying atelectasis and/or infiltration. Emphysematous changes worse in the upper lobes. Electronically Signed: Deven Hensley MD at 10:49 EDT Tel [phone], Service support , CC: SEUN Berger; Manoj Christensen MD Specialty Manufacturing Supervisor: Signed LIPID PROFILE Collected: 05/02/2018 Status: F Source: [place] 5:10 AM [facility] REPOSITORY Order Comment: 'TROP' Serial specimen #1, #2 or #3: 3 'TROP' Serial specimen #1, #2, #3, or #4: 3 TYPE CODE TESTS RESULT OUT OF RANGE REFERENCE UNITS LAB L501.4900 200 mg/dL Normal CHOL 85 Result Comment: <200 mg/dL Desirable 200-240 mg/dL Borderline >240 mg/dL High Risk LAB L501.5000 mg/dL Normal TRIG 143 Result Comment: The drugs N-Acetylcysteine and Metamizole may falsely depress this assay. Serum Triglycerides Reference Interval Normal <150 mg/dL Borderline high 150 - 199 mg/dL High 200 - 499 mg/dL Very High > or = 500 mg/dL LAB L501.6400 mg/dL Normal HDL 59 Result Comment: The drugs N-Acetylcysteine and Metamizole may falsely depress this assay. Reference Range HDL <40 mg/dL Low HDL Cholesterol HDL >or= 60 mg/dL High HDL Cholesterol LAB L501.6500 0-130 mg/dL Low LDL -3 LAB L501.6600 5-40 mg/dL Normal VLDL 29 Performed By: #### L500.4100, L501.1800, L501.4010 #### [facility] [address] [place], [address] ALBUMIN, SERUM Collected: 05/02/2018 Status: F Source: [place] 5:10 AM [facility] REPOSITORY Order Comment: 'TROP' Serial specimen #1, #2 or #3: 3 'TROP' Serial specimen #1, #2, #3, or #4: 3 TYPE CODE TESTS RESULT OUT OF RANGE REFERENCE UNITS LAB L501.1800 3.2-5.0 g/dL Normal ALB 3.3 Performed By: #### L500.4100, L501.1800, L501.4010 #### [facility] [address] [place], [address] TROPONIN-I Collected: 05/02/2018 Status: F Source: [place] 5:10 AM [facility] REPOSITORY Order Comment: 'TROP' Serial specimen #1, #2 or #3: 3 'TROP' Serial specimen #1, #2, #3, or #4: 3 TYPE CODE TESTS RESULT OUT OF RANGE REFERENCE UNITS LAB L501.4010 <0.045 ng/mL Normal < 0.015 TROPONIN-I Result Comment: TROPONIN-I EXPECTED VALUES <0.045 Negative 0.045 - 0.590 Consistent with Cardiac Damage > OR = 0.600 Critical Value Not every elevated troponin is indicative of SC. These values should be used with clinical judgement in examining the patient's clinical picture for diagnosis. To establish a diagnosis of SC versus myocardial injury, there must be a demonstrated rise and/or fall in the troponin values, in addition to ischemic symptoms, EKG changes, new regional wall motion abnormality, and/or angiographical evidence. PLEASE NOTE: REFERENCE RANGES EDITED 18 Performed By: #### L500.4100, L501.1800, L501.4010 #### [facility] [address] [place], [address] COMPREHENSIVE METABOLIC Collected: 05/02/2018 Status: F Source: [place]IE MICHEL 5:10 AM [facility] REPOSITORY TYPE CODE TESTS RESULT OUT OF RANGE REFERENCE UNITS LAB L501.0100 74-106 mg/dL High GLU 143 Result Comment: Fasting Glucose result greater than or equal to 126 mg/dL suggests DIABETES MELLITUS per A.D.A. criteria. Please note revised GLUCOSE reference range effective 2017. LAB L501.1000 7-18 mg/dL High BUN 40 LAB L501.1100 0.70-1.30 mg/dL High CREAT,SERUM 1.57 Result Comment: The validity of the calculated GFR AND GFRAA in patients over 70 years has not been determined. Clinical correlation is essential. LAB L501.1110 >60 mL/min Low EST GFR 47 Result Comment: Non- GFR Calc LAB L501.1115 >60 mL/min Low EST GFR - AA 57 Result Comment: GFR Calc LAB L501.1255 ml/min Normal Estimated CRCL 43.27 LAB L501.1300 10-20 RATIO High BUN/CRE 25.5 LAB L501.1500 6.4-8. g/dL Normal 2 T PROT 6.8 LAB L501.1800 3.2-5. g/dL Normal 0 ALB 3.3 LAB L501.1950 2.2-4. g/dL Normal 2 GLOB 3.5 LAB L501.2000 0.9-2. RATIO Normal 4 A/G 0.9 LAB L501.2200 8.5-10 mg/dL Normal .1 CA 8.7 LAB L501.4100 15-37 U/L Normal AST 18 LAB L501.4305 45-117 U/L Normal ALK P 67 LAB L501.4405 16-61 U/L Normal ALT 22 LAB L501.4600 0.20-1 mg/dL Normal .00 T BILI 0.70 LAB L501.5300 136-14 mmol/L Normal 5 NA 138 LAB L501.5600 3.5-5. mmol/L Normal 1 K 4.4 LAB L501.5900 98-107 mmol/L Normal CL 105 LAB L501.6100 21.0-3 mmol/L Normal 2.0 CO2 25.0 LAB L501.6200 5-15 Normal GAP 8 Performed By: #### L500.4050 #### [facility] [address] [place], [address] CBC W/DIFF, AUTOMATED Collected: 05/02/2018 Status: F Source: [place]DIE 5:10 AM [facility] REPOSITORY TYPE CODE TESTS RESULT OUT OF RANGE REFERENCE UNITS LAB L100.1000 4.4-11.0 K/mm3 High WBC 18.5 LAB L100.1200 4.6-6.2 M/mm3 Low RBC 3.45 LAB L100.1300 13.0-16.5 g/dl Low HGB 10.3 LAB L100.1400 40-54 % Low HCT 34.4 LAB L100.1500 80-94 fL High MCV 99.7 LAB L100.1600 27.0-32.0 pg Normal MCH 29.9 LAB L100.1700 32-36 g/gl Low MCHC 29.9 LAB L100.1810 11.6-14.6 % High RDW CV 18.7 LAB L100.1820 35.1-43.9 fl High RDW SD 66.1 LAB L100.1900 150-450 K/mm3 Normal PLT 198 LAB L100.2000 6.2-12.0 fl Normal MPV 9.5 LAB L100.2100 47-70 % High NEUT% 86.5 LAB L100.2200 19-41 % Low LY% 3.8 LAB L100.2300 0-10 % Normal MONO% 9.2 LAB L100.2400 0-5 % Normal EO% 0.2 LAB L100.2500 0-1 % Normal BASO% 0.1 LAB L100.2550 0.0-0.9 % Normal IM GRAN % 0.200 Result Comment: IG% - Immature Granulocytes (promyelocytes, myelocytes and metamyelocytes) > 1% indicates that a LEFT SHIFT is Present. LAB L100.2620 2.0-7.7 X10 3/uL Absolute Neut High 16.0 LAB L100.2720 0.83-4.51 X10 3/ul Low Absolute Lymph 0.70 LAB L100.4500 SMEAR COMMENT Normal SCAN LAB L100.7300 ANISO Normal 1+ LAB L100.7500 POLYCHROMASIA Normal 1+ LAB L100.7800 MACROCYTE Normal 1+ Performed By: #### L100.0100 #### [facility] [address] [place], [address] BNP,B-TYPE NATRIURETIC Collected: 05/02/2018 Status: F Source: [place] PEPTIDE 5:10 AM [facility] REPOSITORY TYPE CODE TESTS RESULT OUT OF RANGE REFERENCE UNITS LAB L503.6620 0-100 pg/mL High B-TYPE 1759.1 ALISSA PEP Performed By: #### L503.6620 #### [facility] [address] [place], [address] TROPONIN-I Collected: 05/02/2018 Status: F Source: [place] 2:00 AM [facility] REPOSITORY Order Comment: 'TROP' Serial specimen #1, #2 or #3: 2 TYPE CODE TESTS RESULT OUT OF RANGE REFERENCE UNITS LAB L501.4010 <0.045 ng/mL Normal 0.027 TROPONIN-I Result Comment: TROPONIN-I EXPECTED VALUES <0.045 Negative 0.045 - 0.590 Consistent with Cardiac Damage > OR = 0.600 Critical Value Not every elevated troponin is indicative of SC. These values should be used with clinical judgement in examining the patient's clinical picture for diagnosis. To establish a diagnosis of SC versus myocardial injury, there must be a demonstrated rise and/or fall in the troponin values, in addition to ischemic symptoms, EKG changes, new regional wall motion abnormality, and/or angiographical evidence. PLEASE NOTE: REFERENCE RANGES EDITED 18 Performed By: #### L501.4010 #### [facility] [address] [place], [address] Observed: 05/02/2018 Status: F Source: [place] CULTURE, BLOOD (WB) 2:00 AM [facility] REPOSITORY BC No growth in 5 days. Performed By: #### M200.1000 #### [facility] [address] [place], [address] HISTORY AND PHYSICAL Observed: 05/01/2018 Status: F Source: [place] EXAM 11:51 PM [facility] REPOSITORY [facility] Medical Records Department [address] [place] [address] History and Physical 05/01/18 2341 MR#: [id number] Acct: [id number] Name: YENNI GIMENEZ Rep #: [id number] : 1950 67 From: Arnaldo Jennings MD PCP: SEUN Poe Status: REG ER Y Location: ED Problem List (1) Acute respiratory failure with hypoxia Status: Acute (2) Diastolic CHF Status: Acute Qualifiers: (3) HLD (hyperlipidemia) Status: Chronic (4) HTN (hypertension) Status: Chronic (5) PAD (peripheral artery disease) Status: Chronic (6) CAD (coronary artery disease) Status: Chronic (7) COPD (chronic obstructive pulmonary disease) Status: Chronic (8) Tobacco dependence Status: Chronic (9) BPH (benign prostatic hyperplasia) Status: Chronic History of Present Illness Date of Admission: 05/01/18 Chief Complaint: shortness of breath The patient is a 67 year old male patient with a significant past medical history of Coronary artery disease status post 3 vessel cabbage in 2010 and three stents this past May recently admitted one month ago with a similar presentation. He is acutely short of breath. He states he slept supine for the first time in a long time and when he woke up he was short of breath that progressed thru the day. He is requiring supplemental oxygen to maintain his SPO2 at 93% and his respiratory rate is 30. He has a WBC count of 18,000 with a left shift. BNTP is markedly elevated and chest xray reveals bilateral pleural effusions and infection can not be ruled out due to pulmonary edema. He has gained 5 lbs acutely as well. He was schedule to have an outpatient echo in May. He will be admitted for further management of CHF. Past Medical History Past Medical History (Chronic Problems): Chronic Problems HLD (hyperlipidemia) (Chronic) HTN (hypertension) (Chronic) PAD (peripheral artery disease) (Chronic) CAD (coronary artery disease) (Chronic) COPD (chronic obstructive pulmonary disease) (Chronic) Tobacco dependence (Chronic) CKD (chronic kidney disease) (Chronic) Leukocytosis (Chronic) Anemia (Chronic) BPH (benign prostatic hyperplasia) (Chronic) Allergies irbesartan [From Avapro] Adverse Reaction (Verified 05/01/18 21:43) Other zolpidem [From Ambien] Adverse Reaction (Verified 05/01/18 21:43) Other Home Medications: Ambulatory Orders Medication Instructions Recorded Aspirin [Aspirin, Baby] 81 mg PO DAILY@0800 01/28/18 Clopidogrel Bisulfate [Plavix] 75 mg PO DAILY 01/28/18 Metoprolol Succinate 100 mg PO DAILY 01/28/18 Surgical History: coronary bypass surgery, tonsillectomy Smoking Status: Light Smoker (<10/day) - *Family History Maternal History Items: No pertinent history Paternal History Items: No pertinent history Review of Systems Constitutional: Reports: Fever. Denies: Chills, Weight Change HEENT: Denies: Head Aches, Sinus Congestion, Sinus Drainage Cardiovascular: Denies: Chest Pain, Palpitations Respiratory: Reports: Cough, Shortness of breath at rest, Wheezing. Denies: Sputum production Gastrointestinal: Denies: Abdominal Pain, Nausea, Vomiting Genitourinary: Denies: Dysuria Musculoskeletal: Denies: Joint Pain, Joint Tenderness Skin: Denies: Rash, Wounds Neurological: Denies: Numbness, Tingling, Focal weakness Psychiatric: Denies: Anxiety, Depression, Homicidal Ideations, Suicidal Ideations Hematologic/ Lymphatic: Denies: Easy Bruising, Easy Bleeding VTE Information - Inpt Only VTE Present on Admission: No VTE Mechan Device Prophylaxis: SCD's VTE Pharm Prophylaxis ordered?: No - Physical Exam General: Alert, Oriented x3, Cooperative HEENT: Atraumatic, Normocephalic Neck: Supple, No JVD, Negative Carotid Bruits Lungs: Clear to auscultation, Normal air movement, No rhonchi, Wheezes Cardiovascular: Regular rate, Regular Rhythm, Normal S1, Normal S2, No murmurs, No rub noted, No Gallop Abdomen: Bowel Sounds Present, Soft, Non Tender, Obese Extremities: Capillary Refill Less than 3 Seconds, Edema - 3+ lower ext edema Skin: No rashes, No breakdown Musculoskeletal: No Tenderness to Palpation of Joints or Extremities Neurological: Neuro grossly intact Psych/Mental Status: Normal Affect, Appropriate Vital Signs Temp Pulse Resp BP Pulse Ox 98.3 F 100 23 H 175/74 H 95 05/01/18 21:41 05/01/18 23:05 05/01/18 22:50 05/01/18 23:05 05/01/18 21:41 Oxygen Delivery Method Room Air Weight: 196 lb Body Mass Index (BMI) 30.7 Intake and Output for Last 24 Hours Output Total 100 / 100 Balance -100 / -100 Laboratory Tests Past 24 Hrs WBC 18.7 H RBC 3.68 L Assessment/Plan All Active Problems UTI (urinary tract infection) (Acute) Sepsis (Acute) Acute respiratory failure with hypoxia (Acute) Diastolic CHF (Acute) Respiratory failure with hypoxia (Acute) Congestive heart failure - admit to progressive care unit - initiate BIPAP therapy to assist with recruitment and reduce work of breathing - cbc, bmp, bntp in am - cycle cardiac enzymes - echo in am - levaquin 500mg IV q day - Zaroxolyn 5mg now in addition to 80mg lasix already received - continue routine medications - smoking cessation encouraged - scds for dvt prophylaxis Code Visit Inpatient E AND M: 37674 Init Hosp L3 05/01/18 3761 <Electronically signed by Arnaldo Jennings MD> Date Arnaldo Jennings MD Cosigner Signature: Date (if applicable) CC: BARREL LATHE OPERATOR INSIDE-C Wong Berger; Arnaldo Jennings MD Signed EMERGENCY DEPARTMENT Observed: 05/01/2018 Status: F Source: [place] SUMMARY 11:27 PM [facility] REPOSITORY [facility] Medical Records Department [address] [place] [address] Emergency Department Summary 05/01/18 2324 MR#: [id number] Acct: [id number] Name: YENNI GIMENEZ Rep #: [id number] : 1950 67 From: Rekha Spring DO PCP: SEUN Poe Status: REG ER - ER Visit Summary Date of Service: 05/01/18 Chief Complaint: [Shortness of breath] History of Present Illness: The patient is a 67 M presents the emergency department with complaint of shortness of breath that started 2 days ago. Patient had an occasional cough with some clear sputum at times. Patient denies any fevers. Patient states that he uses albuterol earlier in the day and had some mild chest discomfort afterwards that he attributes to the albuterol. Patient currently not having any chest pain. Patient does have a history of congestive heart failure. Patient normally does not wear home O2. Patient also states that at times he was told that he may have COPD as he used to be a smoker but quit about 4 months ago. Patient denies recent travel or surgery.] Patient has gained about 5 pounds in the last 24 hours. Patient complains of orthopnea. Physical Examination: [HEENT-PERRLA, EOMI. Cranial nerves II through XII grossly intact. TMs clear. Mucous membranes moist. No adenopathy. Cardiovascular-regular rate and rhythm without murmur or ectopy Lungs-diminished breath sounds bilaterally in the bases with Rales noted. Occasional expiratory wheeze noted. Mild tachypnea. No accessory muscle use or retractions. Abdomen-normoactive bowel sounds, soft, nontender, no rebound or rigidity, no peritoneal signs. Extremities-intact 4, normal range of motion, normal pulses, atraumatic. Patient has +2 edema both lower extremities. Test Results: [EKG obtained on arrival showed a sinus rhythm with ventricular rate of 92 bpm with some LVH and early re-pole noted. Chest x-ray showed CHF with bilateral effusions however they could not rule out an infiltrate. CBC with differential obtained showed a white count of 18.7, hemoglobin 11, hematocrit 36, platelets 200. Chemistries unremarkable. Other than a slightly depressed potassium of 3.4. BUN was 36 and creatinine 1.48. Troponin was 0.025.] Emergency Department Course and Treatment: [Patient received Lasix IV as well as morphine and Nitropaste. Patient was given a DuoNeb aerosol. Patient was started on Levaquin] Treatment Plan: [Patient will be admitted for diuresis and further management of his CHF. My suspicion is that this is all likely CHF however he does have an elevated white blood cell count which is something that has been somewhat chronic for him although he has had a history of pneumonia and sepsis in the past. Blood cultures were ordered. I do not feel patient is septic at this time.] Disposition: [Admit] Impression: [CHF Dyspnea Leukocytosis] This note was generated with [employer] dictation software. It may contain incorrect words, spelling, and punctuation that were not noted in review of the chart prior to signing ED Disposition - Plan for ED Patient: Chief Complaint: Shortness of Breath Referrals: Wong Berger, BARREL LATHE OPERATOR INSIDE-C [Primary Care Provider] - What to do if you have Problems For any increased pain, shortness of breath, bleeding, nausea or vomiting, chest pain, or any unexpected problems, contact your Primary Care Provider. Call [facility] ([phone]) or report to the closest Emergency Room. Call 911 if necessary. 05/01/18 5576 <Electronically signed by Rekha Spring DO> Date Remus Unglakshmi DO Cosigner Signature (If Indicated): Date CC: SEUN Berger CBC W/DIFF, AUTOMATED Collected: 05/01/2018 Status: F Source: EDDIE 10:40 PM [facility] REPOSITORY TYPE CODE TESTS RESULT OUT OF RANGE REFERENCE UNITS LAB L100.1000 4.4-11.0 K/mm3 High WBC 18.7 LAB L100.1200 4.6-6.2 M/mm3 Low RBC 3.68 LAB L100.1300 13.0-16.5 g/dl Low HGB 11.1 LAB L100.1400 40-54 % Low HCT 35.9 LAB L100.1500 80-94 fL High MCV 97.6 LAB L100.1600 27.0-32.0 pg Normal MCH 30.2 LAB L100.1700 32-36 g/gl Low MCHC 30.9 LAB L100.1810 11.6-14.6 % High RDW CV 18.9 LAB L100.1820 35.1-43.9 fl High RDW SD 67.2 LAB L100.1900 150-450 K/mm3 Normal PLT 200 LAB L100.2000 6.2-12.0 fl Normal MPV 9.3 LAB L100.2100 47-70 % High NEUT% 82.2 LAB L100.2200 19-41 % Low LY% 10.0 LAB L100.2300 0-10 % Normal MONO% 7.1 LAB L100.2400 0-5 % Normal EO% 0.4 LAB L100.2500 0-1 % Normal BASO% 0.2 LAB L100.2550 0.0-0.9 % Normal IM GRAN % 0.100 Result Comment: IG% - Immature Granulocytes (promyelocytes, myelocytes and metamyelocytes) > 1% indicates that a LEFT SHIFT is Present. LAB L100.2620 2.0-7.7 X10 3/uL High Absolute Neut 15.4 LAB L100.2720 0.83-4.51 X10 3/ul Normal Absolute Lymph 1.86 LAB L100.4500 Normal SMEAR COMMENT Result Comment: 1+ ANISOCYTOSIS Performed By: #### L100.0100 #### [facility] [address] [place], [place], [address] BASIC METABOLIC Collected: 05/01/2018 Status: F Source: [place] PROFILE (BMP) 10:40 PM [facility] REPOSITORY TYPE CODE TESTS RESULT OUT OF RANGE REFERENCE UNITS LAB L501.0100 74-106 mg/dL High GLU 107 Result Comment: Fasting Glucose result from 100 to 125 mg/dL suggests IMPAIRED HOMEOSTASIS per A.D.A. criteria. Please note revised GLUCOSE reference range effective 2017. LAB L501.1000 7-18 mg/dL High BUN 36 LAB L501.1100 0.70-1.30 mg/dL High CREAT,SERUM 1.48 Result Comment: The validity of the calculated GFR AND GFRAA in patients over 70 years has not been determined. Clinical correlation is essential. LAB L501.1110 >60 mL/min Low EST GFR 51 Result Comment: Non- GFR Calc LAB L501.1115 >60 mL/min Normal EST GFR - AA 61 Result Comment: GFR Calc LAB L501.1255 ml/min Normal Estimated CRCL 45.90 LAB L501.1300 10-20 RATIO High BUN/CRE 24.3 LAB L501.2200 8.5-10 mg/dL Normal .1 CA 9.1 LAB L501.5300 136-14 mmol/L Normal 5 NA 137 LAB L501.5600 3.5-5. mmol/L Low 1 K 3.4 LAB L501.5900 98-107 mmol/L Normal CL 103 LAB L501.6100 21.0-3 mmol/L Normal 2.0 CO2 23.0 LAB L501.6200 5-15 Normal GAP 11 Performed By: #### L500.2500, L501.4010 #### [facility] [address] [place], [address] TROPONIN-I Collected: 05/01/2018 Status: F Source: EDD[place] 10:40 PM [facility] REPOSITORY TYPE CODE TESTS RESULT OUT OF RANGE REFERENCE UNITS LAB L501.4010 <0.045 ng/mL Normal 0.025 TROPONIN-I Result Comment: TROPONIN-I EXPECTED VALUES <0.045 Negative 0.045 - 0.590 Consistent with Cardiac Damage > OR = 0.600 Critical Value Not every elevated troponin is indicative of SC. These values should be used with clinical judgement in examining the patient's clinical picture for diagnosis. To establish a diagnosis of SC versus myocardial injury, there must be a demonstrated rise and/or fall in the troponin values, in addition to ischemic symptoms, EKG changes, new regional wall motion abnormality, and/or angiographical evidence. PLEASE NOTE: REFERENCE RANGES EDITED 18 Performed By: #### L500.2500, L501.4010 #### [facility] [address] [place], [address] BNP,B-TYPE NATRIURETIC Collected: 05/01/2018 Status: F Source: [place]IE PEPTIDE 10:40 PM [facility] REPOSITORY TYPE CODE TESTS RESULT OUT OF RANGE REFERENCE UNITS LAB L503.6620 0-100 pg/mL High B-TYPE 1906.3 ALISSA PEP Performed By: #### L503.6620 #### [facility] [address] [place], [address] MAGNESIUM Collected: 05/01/2018 Status: F Source: EDDIE 10:40 PM [facility] REPOSITORY TYPE CODE TESTS RESULT OUT OF RANGE REFERENCE UNITS LAB L501.5200 1.6-2.6 mg/dL Normal MG 2.6 Performed By: #### L501.5200 #### [facility] [address] [place], [address] Observed: 05/01/2018 Status: F Source: [place] CULTURE, BLOOD (WB) 10:40 PM [facility] REPOSITORY BC No growth in 5 days. Performed By: #### M200.1000 #### [facility] [address] [place], [address] CHEST 1 VIEW Observed: 05/01/2018 Status: F Source: [place] (PORTABLE) 10:37 PM [facility] REPOSITORY [facility] Imaging Services [address] [place] [address] Chest 1 View (Portable) MR#: [id number] Acct: [id number] Name: YENNI GIMENEZ Rep #: [id number] : 1950 M 67 From: Stephanie Martínez MD PCP: SEUN Poe Status: REG ER Study: Chest 1 View (Portable) Date of Exam: 05/01/18 Exam# [id number] Ordering Dr: Rekha Spring DO STUDY: X-RAY CHEST REASON FOR EXAM: Male, 67 years old. Shortness of breath TECHNIQUE: Single AP portable view of the chest. COMPARISON: April 08, 2018 FINDINGS: There is blunting of the costophrenic angle increased linear density in the lung bases. There is no demonstrated pleural abnormality. Sternal cerclage wires are present from a prior sternotomy. Normal mediastinum and justyn. Normal visualized pulmonary arteries. There is atherosclerotic calcification of the aortic arch with tortuosity. There are diffuse degenerative changes of the visualized thoracic spine. Normal visualized ribs, clavicles, and shoulders. There is no demonstrated abnormality of the visualized soft tissue structures of the upper abdomen. RAD/Chest 1 View (Portable) IMPRESSION: Bilateral pleural effusions atelectasis. Consider pulmonary edema cannot exclude infection. Status post sternotomy. Electronically Signed: Stephanie Martínez MD at 23:10 EDT Tel , Service support , CC: SEUN Berger; Rekha Spring DO Specialty Manufacturing Supervisor: Signed BONE SCAN WHOLE Observed: 04/18/2018 Status: F Source: [place] BODY 7:58 AM [facility] REPOSITORY [facility] Services [address] [place] [address] Bone Scan Whole Body MR#: [id number] Acct: [id number] Name: YENNI GIMENEZ Rep #: [id number] : 1950 M 67 From: Trevor Mayo DO PCP: SEUN Poe Status: REG CLI Study: Bone Scan Whole Body Date of Exam: 04/18/18 Exam# [id number] Ordering Dr: Wong Berger ADDENDUM by Trevor Mayo DO on 04/19/18 at 0916 NM/Bone Scan Whole Body IMPRESSION: 1. The increase in radiopharmaceutical concentration identified in the left posterior ilium correlates with the finding demonstrated on CT of the abdomen and pelvis dated 04/08/2018 and is of uncertain etiology. This may represent osteoid osteoma, potentially enostosis (bone island). An isolated skeletal metastasis is considered unlikely in the absence of known primary malignancy. 2. Degenerative arthritis is otherwise expressed in the bilateral shoulders, right and left hands, cervical spine as defined above. Electronically Signed: Trevor Mayo DO at 9:16 EDT Tel , Service support , 04/19/18 0923 Date cc: SEUN Berger * Signed ADDENDUM by Trevor Mayo DO on 04/19/18 at 0916 ADDENDUM CLINICAL: 67-year-old male with reported history of left iliac bone sclerotic density. WHOLE BODY 99m Tc MDP RADIONUCLIDE BONE SCINTIGRAPHY COMPARISON: CT of the abdomen-pelvis report 04/08/2018 FINDINGS: Following the intravenous administration of 26.1 mCi of 99m Tc MDP, whole body bone images reveal: 1. Focal enhanced tracer concentration is apparent in the region of the left posterior ilium corresponding to the sclerotic density defined on CT of the abdomen-pelvis dated 04/08/2018. 2. Increased radiopharmaceutical concentration is otherwise identified in the acromioclavicular compartments of both shoulders, right- left hands, lower cervical spine posteriorly on the left. 3. The remaining skeletal structures are scintigraphically unremarkable with normal-appearing renal images and urinary bladder activity identified. An increase in tracer concentration is identified in the proximal-distal sternum most consistent with previous median sternotomy. 04/19/18 0916 Date cc: SEUN Berger * Signed CLINICAL: 67-year-old male with reported history of left iliac bone sclerotic density. WHOLE BODY 99m Tc MDP RADIONUCLIDE BONE SCINTIGRAPHY COMPARISON: CT of the abdomen-pelvis report 04/08/2018 FINDINGS: Following the intravenous administration of 26.1 mCi of 99m Tc MDP, whole body bone images reveal: 1. Focal enhanced tracer concentration is apparent in the region of the left posterior ilium corresponding to the sclerotic density defined on CT of the abdomen-pelvis dated 04/08/2018. 2. Increased radiopharmaceutical concentration is otherwise identified in the acromioclavicular compartments of both shoulders, right- left hands, lower cervical spine posteriorly on the left. 3. The remaining skeletal structures are scintigraphically unremarkable with normal-appearing renal images and urinary bladder activity identified. NM/Bone Scan Whole Body IMPRESSION: 1. The increase in radiopharmaceutical concentration identified in the left posterior ilium correlates with the finding demonstrated on CT of the abdomen and pelvis dated 04/08/2018 and is of uncertain etiology. This may represent osteoid osteoma, potentially enostosis (bone island). An isolated skeletal metastasis is considered unlikely in the absence of known primary malignancy. 2. Degenerative arthritis is otherwise expressed in the bilateral shoulders, right and left hands, cervical spine as defined above. Electronically Signed: Trevor MayoDO at 8:59 EDT Tel , Service support , CC: SEUN Berger Specialty Manufacturing Supervisor: Signed BMP Collected: 04/17/2018 Status: F Source: [place] 12:42 [facility] REPOSITORY TYPE CODE TESTS RESULT OUT OF RANGE REFERENCE UNITS LAB 18392877(L 70-99 mg/dL OINC) High Glucose Lvl 119 LAB 79438153(L 8.4-10.2 mg/dL OINC) Calcium Normal Lvl 9.1 LAB 34383395(L 136-145 mEq/L OINC) Sodium Normal Lvl 136 LAB 21984015(L 3.5-5.1 mEq/L OINC) Normal Potassium Lvl 3.6 LAB 98002182(L 98-107 mEq/L OINC) Chloride Normal 102 LAB 72643042(L 24.0-30.0 mEq/L OINC) CO2 Normal 24.2 LAB 81750048(L 7-18 mg/dL OINC) High BUN 28 LAB 3830699(LO 0.6-1.3 mg/dL INC) High Creatinine 1.4 LAB 60491833(L 5.4-30.0 ratio OINC) Normal BUN/Creat Ratio 20.0 Performed By: #### [id number] #### [facility] [address] [place] [address] EGFR Collected: 04/17/2018 Status: F Source: [place] 12:42 PM [facility] REPOSITORY Order Comment: Order added by Discern Expert. TYPE CODE TESTS RESULT OUT OF RANGE REFERENCE UNITS LAB 18649994(LO mL/min/1.73 INC) m2 Normal eGFR 51 LAB 25566494(LO mL/min/1.73 INC) m2 Normal eGFR AA >60 Performed By: #### [id number] #### [facility] [address] [place] [address] EMERGENCY DEPARTMENT Observed: 04/11/2018 Status: F Source: [place] SUMMARY 6:08 PM [facility] REPOSITORY [facility] Medical Records Department [address] [place] [address] Emergency Department Summary 04/07/18 2318 MR#: [id number] Acct: [id number] Name: YENNI GIMENEZ Rep #: [id number] : 1950 67 From: Anay Morgan MD PCP: SEUN Poe Status: DIS IN - ER Visit Summary Date of Service: 04/07/18 Chief Complaint: Charles catheter pain History of Present Illness: The patient is a 67 M history coronary disease, CHF, COPD, hypertension, high cholesterol, BPH. Patient was discharged from [facility] last week with a Charles catheter. He was seen here on the evening of May 05 where his Charles was irrigated. Patient was seen by Dr. Zhou yesterday in the office and catheter was removed. Catheter had to be replaced this morning due to decreased urine output. Patient presents complaining of pain to his penis area from the catheter insertion and having little output in his Charles bag. Physical Examination: Blood pressure is 144/69, temperature 101.3 TA, heart rate 100, respiratory rate 20, pulse ox 97% on room air. The time of my examination his oral temperature is 98.9. Head and neck examination is unremarkable. Heart is regular rate and rhythm. lung sounds are clear. Abdomen is soft and nontender. He does have some abdominal wall bruising from his recent heparin injections. There is no focal tenderness over the bladder and bladder does not feel distended. Test Results: Bedside bladder scan does not show any retained urine. Charles catheter easily irrigates. CBC is significant for white count of 30.5 with 86% neutrophils. Hemoglobin is 8.8 which appears consistent with his baseline. Chemistry studies reveal sodium of 130 and a chloride of 96. BUN is 26 and creatinine is 2.08. This is slightly elevated compared to his baseline but he has had worse renal function in the past. Urinalysis shows 25-50 white blood cells with 5-10 RBCs. No bacteria is noted. Blood and urine cultures were sent. Emergency Department Course and Treatment: Patient was given mild IV fluids. He was complaining of increasing shortness of breath and felt like his lungs were filling up with fluid. Fluids were turned down. Patient was placed on supplemental oxygen for comfort only. His oxygen saturations remained in the mid 90s. Portable chest x-ray shows mild pulmonary congestion per my read. I did review urine culture from 2 days ago it appears to be growing Pseudomonas. He is given a dose of Zosyn and a new urine culture has been sent. Treatment Plan: [] Disposition: Admit Impression: 1. Leukocytosis 2. Pseudomonas positive urine culture 3. Hyponatremia This note was generated with [employer] dictation software. It may contain incorrect words, spelling, and punctuation that were not noted in review of the chart prior to signing ED Disposition - Plan for ED Patient: Disposition: Acute Care Hospital [facility] Chief Complaint: Charles C/O What to do if you have Problems For any increased pain, shortness of breath, bleeding, nausea or vomiting, chest pain, or any unexpected problems, contact your Primary Care Provider. Call [facility] ([phone]) or report to the closest Emergency Room. Call 911 if necessary. 04/11/18 1808 <Electronically signed by Anay Morgan MD> Date Anay Morgan MD Cosigner Signature (If Indicated): Date CC: SEUN Berger DISCHARGE SUMMARY Observed: 04/10/2018 Status: F Source: [place] 4:01 PM [facility] REPOSITORY [facility] Medical Records Department [address] [place] [address] Discharge Summary 04/10/18 1157 MR#: [id number] Acct: [id number] Name: YENNI GIMENEZ Rep #: [id number] : 1950 67 From: Carmen Duong MD PCP: SEUN Poe Status: DIS IN Y [place] [facility] [id number] ADDENDUM by Carmen Duong MD on 04/10/18 at 1600 Code Visit Meaninful use: Acute on chronic diastolic CHF EF 55% Discharged not on ACEI or ARB because of DAI 04/10/18 1601 <Electronically signed by Carmen Duong MD> Date Carmen Duong MD cc: SEUN Berger; Carmen Duong MD * Signed Discharge Date and Diagnosis - Problem List Patient Problems: Active and Suspected Problems UTI (urinary tract infection) (Acute) Sepsis (Acute) Acute respiratory failure with hypoxia (Acute) Date of Admission: 04/07/18 Date of Discharge: 04/10/18 - Primary Discharge Diagnosis Active and Suspected Problems 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 UTI (urinary tract infection) (Acute) Acute respiratory failure with hypoxia (Acute) Acute kidney injury Acute hyponatremia Acute on chronic diastolic CHF Acute lower urinary tract obstruction secondary to BPH - Secondary Discharge Diagnosis Chronic Problems HLD (hyperlipidemia) (Chronic) HTN (hypertension) (Chronic) PAD (peripheral artery disease) (Chronic) CAD (coronary artery disease) (Chronic) COPD (chronic obstructive pulmonary disease) (Chronic) Tobacco dependence (Chronic) CKD (chronic kidney disease) (Chronic) Leukocytosis (Chronic) Anemia (Chronic) BPH (benign prostatic hyperplasia) (Chronic) Hospital Course and Treatment Imaging Results: Clinical Impression(s) from Imaging Studies Chest X-Ray 04/07/18 23:00 IMPRESSION: Status post sternotomy. Consider mild edema. Cannot entirely exclude underlying chronic lung disease. Electronically Signed: Stephanie Martínez MD at 23:53 EDT Tel , Service support , Chest X-Ray 04/08/18 06:45 IMPRESSION: Post sternotomy. Trace left effusion atelectasis and/or infiltrate. Trace right lower lobe atelectasis. Mild interstitial prominence or mild vascular congestion. Electronically Signed: Stephanie Martínez MD at 9:23 EDT Tel , Service support , Abdomen/Pelvis CT 04/08/18 06:48 IMPRESSION: Right lower lobe consolidation small right effusion consider possible pneumonia. Left pleural effusion and left lower lobe atelectasis. Dense coronary calcification status post sternotomy. Mild hepatomegaly. Densely calcified vessels of the abdomen is detailed above including critical calcification and stenosis of the bilateral renal arteries. Since the prior study 2003 there is been interval severe atrophy of the left kidney likely due to stenosis of the renal artery. In addition there is marked worsening of the calcification of the celiac and inferior mesenteric arteries. Significant stenosis of the left common femoral artery Wall thickening of the bladder suspicious for cystitis. Mild enlargement of the prostate. Degenerative changes of thoracolumbar spine Osteoblastic lesion in the left ilium recommend follow-up bone scan. Although this may represent a focus of sclerosis interval development raises concern for underlying osteoblastic metastatic disease. Electronically Signed: Stephanei Martínez MD at 9:05 EDT Tel , Service support , None Operations: None Procedures: None Summary of Care Provided: The patient is a 67 year old M with past medical history of CAD, CHF, COPD, hypertension, BPH, status post chronic Charles catheter, hyperlipidemia, who comes in with complaints of urinary obstruction. Patient was recently discharged 4 months for the hospital with a Charles catheter. He had been seen in the ED several times where his Charles was flushed. Patient had followed up with Dr. Zhou and his catheter was removed. He was unable to urinate and it was re-inserted. He had come in complaining of sharp pain at the tip of the penis. Patient had not noted any blood or cloudiness of his urine. He was admitted and managed as sepsis secondary to Burkholderia UTI. He was also found to be in acute on chronic diastolic CHF, and managed on IV Bumex with improvement in his oxygen requirements and kidney function. He was seen cardiology, nephrology, urology physicians. Urology wants him to still have the Charles catheter in and follow-up with him in the outpatient. Patient will need cardiac clearance. His internal audit director is in [place] and he prefers to follow-up with [facility]. Appointment made for him. He was discharged home on Ciprofloxacin for 7 more days. Patient knows to weigh himself, fluid restrict himself, follow-up with all his physicians, needs to repeat blood work in 3 days. Discharge Diet: Low fat/ Low Cholesterol, 2000 mg Sodium Diet Discharge Activity: Return to Normal Activity Home Medications: Medications to take at Discharge Aspirin [Aspirin, Baby] 81 mg PO DAILY@0800 01/28/18 Clopidogrel Bisulfate [Plavix] 75 mg PO DAILY 01/28/18 Metoprolol Succinate 100 mg PO DAILY 01/28/18 Ropinirole HCl [Requip] 1 mg PO DAILY 01/28/18 Rosuvastatin Calcium [Crestor] 40 mg PO DAILY 01/28/18 Spironolactone 50 mg PO DAILY 01/28/18 Tamsulosin HCl [Flomax] 0.4 mg PO BID 01/28/18 hydrALAZINE [Apresoline] 50 mg PO TID 01/28/18 Ferrous Sulfate 325 mg PO BIDCM #60 tab 01/30/18 Ipratropium/Albuterol Sulfate [Duoneb] 3 ml INHALATION Q4H.RT #120 ampul.neb 01/30/18 Finasteride [Proscar] 5 mg PO DAILY 04/08/18 Potassium Chloride [K-Dur] 10 meq PO DAILY 04/08/18 Amlodipine [Norvasc] 5 mg PO DAILY #30 tab 04/10/18 Bumetanide 2 mg PO BID #60 tab 04/10/18 Ciprofloxacin [Cipro] 500 mg PO BID #14 tab 04/10/18 Guaifenesin [Mucinex] 600 mg PO BID #14 tab 04/10/18 Sertraline HCl [Zoloft] 50 mg PO DAILY 30 Days #30 tab 04/10/18 Following Prescrptions Were Given to Patient: Amlodipine [Norvasc] 5 mg PO DAILY #30 tab Sertraline HCl [Zoloft] 50 mg PO DAILY 30 Days #30 tab Bumetanide 2 mg PO BID #60 tab Ciprofloxacin [Cipro] 500 mg PO BID #14 tab Guaifenesin [Mucinex] 600 mg PO BID #14 tab Primary Care Physician: Wong Berger NP-C [Primary Care Provider] - Please follow up with your Primary Care Physician in: within 1-2 weeks Please Follow Up With: Chepe Barrientos MD When: within 2 weeks for cardiac clearance Please Follow Up With: Caleb Alaniz MD When: in 1 week Please Follow Up With: Elie Caiecdo MD When: in 2 weeks with Nurse practitioner Please Follow Up With: Alvaro Zhou MD When: as scheduled or within 2 weeks Disposition: Home Minutes spent on discharge:: 40 Patient Condition:: Stable Medical Necessity - Tobacco Use Smoking Status: Current every day smoker Tobacco Use: Cigarettes Meaningful Use Info Meaningful Use Diagnoses (Choose all that apply): None applicable Code Visit Inpatient Luli DAS M: 60765 Disch Hosp 04/10/18 1407 <Electronically signed by Carmen Duong MD> Date Carmen Duong MD Cosigner Signature (if applicable): Date CC: BARREL LATHE OPERATOR INSIDE-C Wong Berger; Carmen Duong MD Signed CONSULTATION Observed: 04/10/2018 Status: F Source: [place] 2:44 PM [facility] REPOSITORY [facility] Medical Records Department [address] [place] [address] Consultation 04/10/18 0816 MR#: [id number] Acct: [id number] Name: YENNI GIMENEZ Rep #: [id number] : 1950 67 From: Yomaira KOHLI PCP: SEUN Poe Status: DIS IN Y [facility] [facility] [place] ADDENDUM by Elie Caicedo MD on 04/10/18 at 1444 Code Visit Patient seen and examined independently in conjunction with nurse practitioner. All data, including note below, was personally reviewed and I agree with the added comments. Brief, patient is a 67-year-old male who presented to [facility] on 04/07/2018 with penile pain secondary to Charles catheter. Patient reportedly has a history of bladder outlet obstruction. On presentation, patient was noted to have temperature of 101.3 F and saturating well on room air. Over the course of patient's hospitalization, patient did have significant tachypnea and there was some concern for possible underlying COPD, so a pulmonology consultation was obtained. Patient does report that he has had pulmonary function tests in the past, but is unaware of the results. Patient reportedly does not have a history of RAVEN or COPD. Patient was reportedly attempted on Advair therapy, but was unable to comply with the cost. Sickle exam was independently performed and I agree as listed below. Patient was saturating well on room air. Patient with Mallampati 3 and poor dentition noted. Patient was diminished, but no adventitial lung sounds were appreciated such as wheezes, rales or rhonchi. No murmurs were appreciated. Patient did have lower extremity edema with venous stasis changes noted. Laboratory workup showed an anemia with a hemoglobin of 8.9, but bicarbonate was within normal limits at 22. Lung images of the CT abdomen showed a right lower lobe effusion with possible atelectasis. Assessment and plan Patient would be at high risk for COPD from a history standpoint. Will obtain old records from [place] and compare this to new pulmonary function test and walking oximetry as an outpatient. Patient did have a walking oximetry while in the hospital that was unremarkable for desaturation. Lung function studies would be necessary to evaluate for possible asthma physiology. Patient understands a smoking cessation is recommended. Patient can follow-up with nurse practitioner 2 weeks after discharge for testing and myself 4-6 weeks later. Patient does not require prednisone therapy from a pulmonary perspective. Inpatient E AND M: [id number] Init Hosp L2 04/10/18 1444 <Electronically signed by Elie Caicedo MD> Date Elie Caicedo MD cc: [facility] OPER[facility] INSIDE-C Wong Berger; Elie Caicedo MD; Augusto Alaniz M.D.; Alvaro Zhou MD * Signed Problem List (1) UTI (urinary tract infection) Status: Acute Qualifiers: Urinary tract infection type: catheter-associated UTI Indwelling urinary catheter type: indwelling urethral catheter Encounter type: subsequent encounter Qualified Code(s): T83.511D - Infection and inflammatory reaction due to indwelling urethral catheter, subsequent encounter; N39.0 - Urinary tract infection, site not specified (2) Sepsis Status: Acute (3) Diastolic CHF Status: Acute Qualifiers: Heart failure chronicity: acute on chronic Qualified Code(s): I50.33 - Acute on chronic diastolic (congestive) heart failure (4) HLD (hyperlipidemia) Status: Chronic (5) HTN (hypertension) Status: Chronic (6) PAD (peripheral artery disease) Status: Chronic (7) CAD (coronary artery disease) Status: Chronic (8) Tobacco dependence Status: Chronic (9) CKD (chronic kidney disease) Status: Chronic Qualifiers: Chronic kidney disease stage: stage 3 (moderate) Qualified Code(s): N18.3 - Chronic kidney disease, stage 3 (moderate) (10) Anemia Status: Chronic (11) BPH (benign prostatic hyperplasia) Status: Chronic Reason for Consult Date of Consultation: 04/10/18 Reason for Consultation: COPD History of Present Illness: The patient is a 67 year old M with a past medical history as below, presented to the ED on 04/07/18 with complaints of penile pain secondary to Charles catheter and low urinary output. Patient has had the catheter for about a week, inserted in [place]. Was removed by Dr. Zhou on the in his office, however had to be replaced this morning secondary to decreased output. Patient was in the ER on 04/05 with the similar complaints and had his Charles irrigated. He is scheduled to see Dr. Zhou this week with potential upcoming surgery for bladder outlet obstruction. The patient was given Zosyn and IV fluids, however became short of breath so fluids were decreased. He was placed on supplemental oxygen for comfort only. He has not had any desaturations. I am not quite sure why the patient has been on up to 4 L of oxygen supplementation, other than the fact it makes him feel better. Initial vitals BP BP 144/69, pulse 100, RR 22, 101.3 F, and 97% on room air. Blood work revealed a leukocytosis of 30,500, hemoglobin of 8.8 (chronic) and hematocrit 27.5. Chemistry revealed sodium of 130, chloride 96, BUN of 26 and creatinine 2.08. BNP was done on the and was elevated at 1195.0. Albumin is low at 2.7. PSA is 7.51. A urinalysis was repeated from the and showed protein, occult blood, and 500 of leukocytes. There were no nitrates. PT was 16 and INR 1.3. Plain film chest x-ray showed chronic interstitial markings and resolution of bilateral effusions and/or infiltrates. There was no acute process. Patient was given IV fluids and sent to the medical surgical floor for further evaluation and management. Pulmonology was consulted for suspected COPD. The patient is currently maintaining appropriate saturations on 2 L of oxygen supplementation. He is afebrile this morning and blood pressure is stable. He was diuresed with Bumex and start on prednisone. CT the abdomen and pelvis was obtained secondary to urinary tract obstruction and renal failure. This showed a right lower lobe consolidation and small right effusion, questionable pneumonia. There is a left pleural effusion and left lower lobe atelectasis. Dense coronary calcification s/p sternotomy, mild hepatomegaly, densely calcified vessels of the abdomen including critical calcification and stenosis of the bilateral renal arteries. Since prior study in 2003 there is interval severe atrophy of the left kidney. In addition there is marked worsening of the calcification of the celiac and inferior mesenteric arteries. Significant stenosis of the left common femoral artery. Wall thickening of the bladder suspicious for cystitis, mild enlargement of the prostate. There is degenerative changes and osteoblastic lesion in the left ilium that follow-up is recommended with bone scan for concerning underlying osteoblastic metastatic disease. Echocardiogram showed an estimated EF of 55%, stage II diastolic dysfunction, a moderately enlarged left atrium, mild MVI and trivial TVI, RVSP estimated 42 mmHg. The patient followed with Dr. Quesada in [facility] for pulmonology, has not seen him in about 6 months. Had a sleep study done at [facility] as well. He was told he did not have RAVEN or COPD. He still thinks he may have sleep apnea secondary to daytime fatigue and his stating he gasps for air. He has never required any home oxygen. Denies any shortness of breath at rest, nocturia, hemoptysis, or epistaxis. The patient has a minimum [id number] history of smoking. He recently quit 3 months ago, however started smoking again 2 days prior to presentation. He does have a chronic cough is occasional, typically produces some clear sputum in the mornings but otherwise no sputum production. Patient reports he was previously put on Advair but was unable to pay $300, he was switched to several other inhalers with the same results. He currently is only on Ventolin and uses this approximately 3-4 times a day. He does report improvement in his breathing with use. Past Medical History Past Medical History (Chronic Problems): Chronic Problems HLD (hyperlipidemia) (Chronic) HTN (hypertension) (Chronic) PAD (peripheral artery disease) (Chronic) CAD (coronary artery disease) (Chronic) COPD (chronic obstructive pulmonary disease) (Chronic) Tobacco dependence (Chronic) CKD (chronic kidney disease) (Chronic) Leukocytosis (Chronic) Anemia (Chronic) BPH (benign prostatic hyperplasia) (Chronic) Allergies irbesartan [From Avapro] Adverse Reaction (Verified 04/07/18 20:54) Other zolpidem [From Ambien] Adverse Reaction (Verified 04/07/18 20:54) Other Home Medications: Ambulatory Orders Medication Instructions Recorded Aspirin [Aspirin, Baby] 81 mg PO DAILY@0800 01/28/18 Bumetanide 1 mg PO BID 01/28/18 Surgical History: coronary bypass surgery, tonsillectomy Psychiatric History: Anxiety, Depression Lives: Spouse/ Significant Other Smoking Status: Current every day smoker Tobacco Use: Cigarettes Alcohol: Occasional Drugs: None - *Family History Maternal History Items: No pertinent history Paternal History Items: No pertinent history Review of Systems Constitutional: Reports: Weakness, Fatigue. Denies: Anorexia, Chills, Fever, Night Sweats, Malaise, Weight Change Eyes: Denies: Vision Change HEENT: Reports: Nasal Congestion. Denies: Difficulty Swallowing, Head Aches, Post Nasal Drip, Sinus Congestion, Sinus Drainage, Sore Throat Cardiovascular: Reports: Edema. Denies: Chest Pain, Chest Tightness, Light Headedness, Orthopnea, Palpitations, Paroxysmal Noc. Dyspnea, Syncope Respiratory: Reports: Cough - Occasional, Shortness of breath upon exertion, Sputum production - In mornings, Wheezing - Intermittently. Denies: Hemoptysis, Shortness of breath at rest Gastrointestinal: Denies: Abdominal Pain, Constipation, Diarrhea, Dyspepsia, Hematemesis, Hematochezia, Nausea, Melena, Vomiting Genitourinary: Reports: Dysuria, Hematuria, Retention. Denies: Nocturia Musculoskeletal: Reports: Joint stiffness. Denies: Back Pain, Neck Pain Skin: Denies: Rash, Wounds Neurological: Reports: Numbness, Tingling. Denies: Balance problems, Change in Speech, Confusion, Difficulty swallowing, Focal weakness, Tremor, Seizures Psychiatric: Reports: Anxiety, Depression. Denies: Suicidal Ideations Endocrine: Denies: Change in Body Habitus, Polydipsia, Polyuria Hematologic/ Lymphatic: Reports: Anemia, Easy Bruising, Easy Bleeding. Denies: Adenopathy, Hx of blood clot Patient Problems: Active and Suspected Problems UTI (urinary tract infection) (Acute) Sepsis (Acute) Acute respiratory failure with hypoxia (Acute) Subjective: Patient was seen and examined. Denies any shortness of breath, chest pain, sputum production, or cough at this time. Reports wearing oxygen because it makes him feel better, not necessarily short of breath. Objective: Clinical Impression(s) from Imaging Studies Chest X-Ray 04/07/18 23:00 IMPRESSION: Status post sternotomy. Consider mild edema. Cannot entirely exclude underlying chronic lung disease. Electronically Signed: Stephanie Martínez MD at 23:53 EDT Tel , Service support , Chest X-Ray 04/08/18 06:45 IMPRESSION: Post sternotomy. Trace left effusion atelectasis and/or infiltrate. Trace right lower lobe atelectasis. Mild interstitial prominence or mild vascular congestion. Electronically Signed: Stephanie Martínez MD at 9:23 EDT Tel , Service support , Abdomen/Pelvis CT 04/08/18 06:48 IMPRESSION: Right lower lobe consolidation small right effusion consider possible pneumonia. Left pleural effusion and left lower lobe atelectasis. Dense coronary calcification status post sternotomy. Mild hepatomegaly. Densely calcified vessels of the abdomen is detailed above including critical calcification and stenosis of the bilateral renal arteries. Since the prior study 2003 there is been interval severe atrophy of the left kidney likely due to stenosis of the renal artery. In addition there is marked worsening of the calcification of the celiac and inferior mesenteric arteries. Significant stenosis of the left common femoral artery Wall thickening of the bladder suspicious for cystitis. Mild enlargement of the prostate. Degenerative changes of thoracolumbar spine Osteoblastic lesion in the left ilium recommend follow-up bone scan. Although this may represent a focus of sclerosis interval development raises concern for underlying osteoblastic metastatic disease. Electronically Signed: Stephanie Martínez MD at 9:05 EDT Tel , Service support , - Physical Exam General: Alert, Oriented x3, Cooperative, No apparent distress, Well developed, Well nourished HEENT: Atraumatic, Normocephalic Oral: Moist Mucosa, No Gingival or Mucosal Lesions/ Ulcerations, - - Poor dental hygiene Neck: Supple, No Nodes, Trachea Midline Lungs: No rhonchi, No wheeze, No rales, Diminished, - - Symmetric expansion, no dullness to percussion Cardiovascular: Normal S1, Normal S2, No murmurs, No rub noted, No Gallop, - - Regular rhythm with ectopy Abdomen: Bowel Sounds Present, Soft, Non Tender, Hyperactive Bowel Sounds, Obese, Hernia Extremities: No clubbing, No cyanosis, Capillary Refill Less than 3 Seconds, Edema, - - Venous stasis changes Skin: No rashes, No breakdown Musculoskeletal: No Tenderness to Palpation of Joints or Extremities, No Muscle Wasting Lymphatic: No Cervical, Supraclavicular, or Inguinal Adenopathy Neurological: Cranial nerves II-XII grossly intact, Neuro grossly intact, Motor Exam 5/5 strength throughout, - - Decreased sensation to bilateral lower extremities, chronic Psych/Mental Status: Alert and oriented to time, place, person, mood and affect Vital Signs Temp Pulse Resp BP Pulse Ox 98.4 F 62 16 142/58 H 99 04/10/18 02:31 04/10/18 07:17 04/10/18 07:17 04/10/18 05:27 04/10/18 07:17 Oxygen Flow Rate (L/min) 2 Oxygen Delivery Method Nasal Cannula Weight: 199 lb 8.293 oz Body Mass Index (BMI) 31.2 Intake and Output for Last 24 Hours Intake Total 2027 / 2027 1170 / 1170 250 / 250 Output Total 1125 / 1125 1475 / 1475 725 / 725 Balance 903 / 903 -305 / -305 -475 / -475 Laboratory Tests Past 24 Hrs WBC 13.6 H RBC 3.00 L Hgb 8.9 L Hct 29.0 L MCV 96.7 H MCH 29.7 MCHC 30.7 L RDW 17.4 H RDW Differential 60.8 H Assessment/Plan All Active Problems UTI (urinary tract infection) (Acute) Sepsis (Acute) Acute respiratory failure with hypoxia (Acute) Diastolic CHF (Acute) Respiratory failure with hypoxia (Acute) RECOMMENDATIONS 1. Wean oxygen supplementation to keep saturations later than 88% 2. Encourage incentive spirometer 3. Increase activity as tolerated, PT/OT 4. Continue aerosols 5. Discontinue steroids 6. Obtain records from Dr. Quesada's office in [facility] 7. Ambulatory pulse ox prior to discharge 8. Patient would like to transfer care to pulmonary medicine of [place], please set up an appointment for 2 weeks with BARREL LATHE OPERATOR INSIDE. He will likely need repeat pulmonary function tests and a pulmonary stress test, this can be set up as an outpatient. Medications can be adjusted as an outpatient as well to optimize pulmonary status. IMPRESSIONS 1. Sepsis secondary to complicated UTI Improved, leukocytosis is resolving. Currently on cefepime. Pulmonary urine culture showing possible Pseudomonas species. 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 There are plans for outpatient procedure with Dr. Zhou for urinary outlet obstruction after the infection has cleared. Patient is now afebrile and hemodynamically stable. 2. Acute renal failure Continues to improve, diuresed with Bumex. Cumulative fluid balance of +123 mL. Patient does have atrophic left kidney and CT the abdomen/pelvis showed severe renal stenosis. Nephrology is following. No indication for renal replacement therapy at this time. 3. Acute on chronic diastolic CHF Also improved. IV Bumex. Is to follow-up with primary internal audit director Dr. Yu [place], [place]. 4. Presumed COPD Records from Dr. Quesada are not available at this time. These were requested. The patient denies any history of COPD, however was put on Advair and Ventolin as an outpatient but discontinued Advair secondary to financial reasons. Again, patient will require repeat pulmonary function tests and a pulmonary stress test as an outpatient to quantify and clarify his lung function. Hopefully, his overall breathing can be optimized with routine follow-up as an outpatient. 5. Tobacco abuse Encouraged ongoing smoking cessation. Patient has recently relapsed and started smoking again, despite feeling short of breath with exertion. He denies need for nicotine replacement therapy at this time. Thank for the opportunity to participate in this patient's care, please do not hesitate contact us with any further questions or concerns. This note was generated with [employer] software. It may contain incorrect words, spelling, and punctuation that were not noted in checking the note before signing. 04/10/18 1035 <Electronically signed by Yomaira KOHLI> Date Yomaira AKINSC Cosigner Signature (if applicable): Date CC: BARREL LATHE OPERATOR INSIDE-C Wong Berger; Elie Caicedo MD; Augusto Alaniz M.D.; Alvaro Zhou MD Signed DISCHARGE INSTRUCTION Observed: 04/10/2018 Status: F Source: [place] 11:57 [facility] RE[facility]ORY [facility] Medical Records Department [address] [place] [address] Instructions for Home/Discharge Instructions 04/10/18 1145 MR#: [id number] Acct: [id number] Name: YENNI GIMENEZ Rep #: [id number] : 1950 67 From: Carmen Duong MD PCP: SEUN Poe Status: ADM IN - Discharge Diagnoses Current Active Problems: Current Active and Chronic Problems UTI (urinary tract infection) (Acute) Sepsis (Acute) Acute respiratory failure with hypoxia (Acute) Reason(s) for Visit for Discharge Instructions: Shortness of breath You will use the following diet at home:: Cardiac Your food should be the consistency of: Regular Your liquids should be the consistency of: Regular/Thin Discharge Activity: Return to Normal Activity Additional Instructions: Please follow a 1500mls fluid restriction. Weigh yourself everyday and let your doctor know if you go more than 4 pounds in weight. Continue to use your incentive spirometer. You are going to be discharged with a charles catheter and follow-up closely with DR. Zhou. Referrals to cardiology and nephrology have been made for you. Follow-up closely with them. Complete your antibiotics. Allergies/Adverse Reactions: Allergies irbesartan [From Avapro] Adverse Reaction (Verified 04/07/18 20:54) Other zolpidem [From Ambien] Adverse Reaction (Verified 04/07/18 20:54) Other Medications to take at Discharge Aspirin [Aspirin, Baby] 81 mg PO DAILY@0800 01/28/18 Clopidogrel Bisulfate [Plavix] 75 mg PO DAILY 01/28/18 Metoprolol Succinate 100 mg PO DAILY 01/28/18 Ropinirole HCl [Requip] 1 mg PO DAILY 01/28/18 Rosuvastatin Calcium [Crestor] 40 mg PO DAILY 01/28/18 Spironolactone 50 mg PO DAILY 01/28/18 Tamsulosin HCl [Flomax] 0.4 mg PO BID 01/28/18 hydrALAZINE [Apresoline] 50 mg PO TID 01/28/18 Ferrous Sulfate 325 mg PO BIDCM #60 tab 01/30/18 Ipratropium/Albuterol Sulfate [Duoneb] 3 ml INHALATION Q4H.RT #120 ampul.neb 01/30/18 Finasteride [Proscar] 5 mg PO DAILY 04/08/18 Potassium Chloride [K-Dur] 10 meq PO DAILY 04/08/18 Amlodipine [Norvasc] 5 mg PO DAILY #30 tab 04/10/18 Bumetanide 2 mg PO BID #60 tab 04/10/18 Ciprofloxacin [Cipro] 500 mg PO BID #14 tab 04/10/18 Guaifenesin [Mucinex] 600 mg PO BID #14 tab 04/10/18 Sertraline HCl [Zoloft] 50 mg PO DAILY 30 Days #30 tab 04/10/18 The following prescriptions were given: Amlodipine [Norvasc] 5 mg PO DAILY #30 tab Sertraline HCl [Zoloft] 50 mg PO DAILY 30 Days #30 tab Bumetanide 2 mg PO BID #60 tab Ciprofloxacin [Cipro] 500 mg PO BID #14 tab Guaifenesin [Mucinex] 600 mg PO BID #14 tab Primary Care Physician: Wong Berger NP-C [Primary Care Provider] - Please follow up with your Primary Care Physician in: within 1-2 weeks Please Follow Up With: Chepe Barrientos MD When: within 2 weeks for cardiac clearance Please Follow Up With: Caleb Alaniz MD When: in 1 week Please Follow Up With: Elie Caicedo MD When: in 2 weeks with Nurse practitioner Please Follow Up With: Alvaro Zhou MD When: as scheduled or within 2 weeks Proposed Discharge Date: 04/10/18 04/10/18 1157 <Electronically signed by Carmen Duong MD> Date Carmen Duong MD CC: BARREL LATHE OPERATOR INSIDE-C Wnog Berger; Elie Caicedo MD; Augusto Alaniz M.D.; Alvaro Zhou MD CONSULTATION Observed: 04/10/2018 Status: F Source: [place] 11:47 [facility] Medical Records Department [address] [place] [address] Consultation 04/10/18 1137 MR#: [id number] Acct: [id number] Name: YENNI GIMENEZ Rep #: [id number] : 1950 67 From: Caleb Alaniz MD PCP: SEUN Poe Status: ADM IN [id number] Problem List (1) Diastolic CHF Status: Acute Qualifiers: Heart failure chronicity: acute on chronic Qualified Code(s): I50.33 - Acute on chronic diastolic (congestive) heart failure (2) HTN (hypertension) Status: Chronic Consultation - Renal 04/10/18 PCP/ Referring MD: Requesting physician: Dr Armijo Primary care physician: SEUN Poe Reason for Consultation:: DAI - History of Present Illness History of Present Illness: The patient is a 67 year old M who was admitted with UTI and sepsis. renal consulted regarding DAI KATELYN fairly complicated history recently. He was recently in [facility] with urinary retention, CHF, DAI, possible pnuemonia. charles was placed, failed voiding trial now sees Dr zhou. CHF - sees internal audit director based out of [place], ([facility]). vasculopath. says he had total of 13 stents all over history of HTN for many years, apparently poorly controlled recently admitted with CHF x 2 in last 3 weeks or so reviewed records from [facility] that are available currently feels ok - Allergies Allergies: Allergies irbesartan [From Avapro] Adverse Reaction (Verified 04/07/18 20:54) Other zolpidem [From Ambien] Adverse Reaction (Verified 04/07/18 20:54) Other - Current Medications Current Medications: Current Medications Acetaminophen (Tylenol) 650 mg PO Q6H PRN PRN PRN Reason: FEVER Last Admin: 04/10/18 05:26 Dose: 650 mg Albuterol Sulfate (Ventolin Aerosols) 2.5 mg INHALATION Q2H PRN PRN PRN Reason: breathing Albuterol/Ipratropium (Duoneb) 3 ml INHALATION Q4H.RT [facility] Last Admin: 04/10/18 11:13 Dose: 3 ml Amlodipine Besylate (Norvasc) 5 mg PO DAILY [facility] Last Admin: 04/10/18 10:06 Dose: 5 mg Aspirin (Aspirin, Baby) 81 mg PO DAILY@0800 [facility] Last Admin: 04/10/18 07:42 Dose: 81 mg Atorvastatin Calcium (Lipitor) 80 mg PO QHS [facility] Last Admin: 04/09/18 22:17 Dose: 80 mg Bumetanide (Bumex) 2 mg IV BID@1000,1800 [facility] Last Admin: 04/10/18 10:01 Dose: 2 mg Clopidogrel Bisulfate (Plavix) 75 mg PO DAILY [facility] Last Admin: 04/10/18 10:08 Dose: 75 mg Docusate Sodium (Colace) 200 mg PO DAILY [facility] Last Admin: 04/10/18 10:00 Dose: 200 mg Ferrous Sulfate (Ferrous Sulfate) 325 mg PO BIDCM [facility] Last Admin: 04/10/18 07:42 Dose: 325 mg Finasteride (Proscar) 5 mg PO DAILY [facility] Last Admin: 04/10/18 10:06 Dose: 5 mg Guaifenesin (Mucinex) 600 mg PO BID [facility] Last Admin: 04/10/18 10:03 Dose: 600 mg Heparin Sodium (Porcine) (Heparin Na) 5,000 unit SC Q8 [facility] Last Admin: 04/10/18 05:24 Dose: 5,000 u Hydralazine HCl (Apresoline) 50 mg PO TID [facility] Last Admin: 04/10/18 05:27 Dose: 50 mg Cefepime HCl 1 gm/ Sodium (Chloride) 50 mls @ 100 mls/hr IV Q24 [facility] Last Admin: 06/25/18 10:02 Dose: 100 mls/hr Magnesium Hydroxide (Milk Of Magnesia) 30 ml PO DAILY PRN PRN Reason: Constipation Last Admin: 04/10/18 05:27 Dose: 30 ml Magnesium Oxide (Mag-Ox 400) 400 mg PO BID [facility] Last Admin: 04/10/18 10:02 Dose: 400 mg Metoprolol Succinate (Toprol Xl (Beta Lesa)) 100 mg PO DAILY [facility] Last Admin: 04/10/18 10:04 Dose: 100 mg Morphine Sulfate () 4 mg IV Q4H PRN PRN PRN Reason: SEVERE PAIN ([id number]) Last Admin: 04/08/18 22:21 Dose: 4 mg Potassium Chloride (K-Dur) [facility] Last Admin: 04/10/18 07:42 Dose: 20 meq Pramipexole Dihydrochloride (Mirapex) 0.5 mg PO DAILY@2200 [facility] Last Admin: 04/09/18 22:09 Dose: 0.5 mg Prednisone () 40 mg PO DAILY@0800 [facility] Last Admin: 04/10/18 07:42 Dose: 40 mg Sertraline HCl (Zoloft) 50 mg PO DAILY [facility] Last Admin: 04/10/18 10:04 Dose: 50 mg Sodium Chloride () 5 - 30 ml IV UD PRN PRN Reason: SALINE FLUSH Last Admin: 04/10/18 05:27 Dose: 10 ml Spironolactone (Aldactone) 50 mg PO DAILY [facility] Last Admin: 04/10/18 10:04 Dose: 50 mg Tamsulosin HCl (Flomax) 0.4 mg PO BID [facility] Last Admin: 04/10/18 10:04 Dose: 0.4 mg - Past Medical History Past Medical History (Chronic Problems): Chronic Problems HLD (hyperlipidemia) (Chronic) HTN (hypertension) (Chronic) PAD (peripheral artery disease) (Chronic) CAD (coronary artery disease) (Chronic) COPD (chronic obstructive pulmonary disease) (Chronic) Tobacco dependence (Chronic) CKD (chronic kidney disease) (Chronic) Leukocytosis (Chronic) Anemia (Chronic) BPH (benign prostatic hyperplasia) (Chronic) - Past Surgical History Surgical History: coronary bypass surgery, tonsillectomy - Social History Smoking Status: Current every day smoker Alcohol: Occasional Drugs: None - Family History Maternal History Items: No pertinent history Paternal History Items: No pertinent history Review of Systems Constitutional: Denies: Chills, Fever, Weight Change HEENT: Denies: Head Aches, Sinus Congestion, Sinus Drainage Cardiovascular: Denies: Chest Pain, Palpitations Respiratory: Denies: Cough, Shortness of breath at rest, Sputum production Gastrointestinal: Denies: Abdominal Pain, Nausea, Vomiting Genitourinary: Denies: Dysuria Musculoskeletal: Denies: Joint Pain, Joint Tenderness Skin: Denies: Rash, Wounds Neurological: Denies: Numbness, Tingling, Focal weakness Psychiatric: Denies: Anxiety, Depression, Homicidal Ideations, Suicidal Ideations Hematologic/ Lymphatic: Denies: Easy Bruising, Easy Bleeding Patient Problems: Active and Suspected Problems UTI (urinary tract infection) (Acute) Sepsis (Acute) Acute respiratory failure with hypoxia (Acute) - Physical Exam General: Alert, Oriented x3, Cooperative HEENT: Atraumatic, PERRLA, EOMI, Normocephalic Neck: Supple, No JVD, Negative Carotid Bruits Lungs: Clear to auscultation, Normal air movement Cardiovascular: Regular rate, No murmurs Abdomen: Bowel Sounds Present, Soft, Non Tender Extremities: No edema, Capillary Refill Less than 3 Seconds Skin: No rashes, No breakdown Musculoskeletal: No Tenderness to Palpation of Joints or Extremities Neurological: Cranial nerves II-XII grossly intact Psych/Mental Status: Normal Affect, Appropriate Vital Signs Temp Pulse Resp BP Pulse Ox 98.0 F 62 20 H 136/49 H 97 04/10/18 08:31 04/10/18 11:13 04/10/18 11:13 04/10/18 08:31 04/10/18 10:33 Oxygen Flow Rate (L/min) 2 Oxygen Delivery Method Room Air Weight: 90.5 kg Body Mass Index (BMI) 31.2 Intake and Output for Last 24 Hours Intake Total 2027 1170 / 1170 250 / 250 Output Total 1125 / 1125 1475 / 1475 725 / 725 Balance 903 / 903 -305 / -305 -475 / -475 Laboratory Tests Past 24 Hrs WBC 13.6 H RBC 3.00 L Hgb 8.9 L Hct 29.0 L MCV 96.7 H MCH 29.7 MCHC 30.7 L RDW 17.4 H RDW Differential 60.8 H Assessment/Plan All Active Problems UTI (urinary tract infection) (Acute) Sepsis (Acute) Acute respiratory failure with hypoxia (Acute) Diastolic CHF (Acute) Respiratory failure with hypoxia (Acute) DAI. Baseline creatinine at the time of dc was 1.1. Admitted with creatinine of 1.7, slowly improving. UA shows some leukocytes but this is a charles sample with active UTI. CT abdomen shows no hydronephrosis Renal artery stenosis. significant history of smoking. coronary, PVD. has cardiac stents and from imaging studies looks like he has a aortobifemoral graft with possible mesentric stent. Left kidney is atrophic and is likely dysfunctional right renal artery has extensive calcification at origin and proximal stent. (this was a non contrast study). Likely has stenosis, possibly hemodynamically significant looking at anatomy on CT, he has extensive calcification all over aorta and most of renal artery. Doubt stenting is feasible bypass also doubtful given anatomy vascular surgery evaluation suggested, can be done as outpatient for now can be discharged on PO bumex d/w Dr Duong 04/10/18 1147 <Electronically signed by Caleb Alaniz MD> Date Caleb Alaniz MD Cosigner Signature (if applicable): Date CC: BARREL LATHE OPERATOR INSIDE-C Wong Berger; Elie Caicedo MD; Augusto Alaniz M.D.; Alvaro Zhou MD Signed BNP,B-TYPE NATRIURETIC Collected: 04/10/2018 Status: F Source: [place] PEPTIDE 11:32 AM [facility] REPOSITORY Order Comment: Comments: as add on test TYPE CODE TESTS RESULT OUT OF RANGE REFERENCE UNITS LAB L503.6620 0-100 pg/mL High B-TYPE 1600.6 ALISSA PEP Performed By: #### L503.6620 #### [facility] [address] [place], [address] BASIC METABOLIC Collected: 04/10/2018 Status: F Source: [place] PROFILE (BMP) 6:08 AM [facility] REPOSITORY TYPE CODE TESTS RESULT OUT OF RANGE REFERENCE UNITS LAB L501.0100 74-106 mg/dL High GLU 151 Result Comment: Fasting Glucose result greater than or equal to 126 mg/dL suggests DIABETES MELLITUS per A.D.A. criteria. Please note revised GLUCOSE reference range effective 2017. LAB L501.1000 7-18 mg/dL High BUN 36 LAB L501.1100 0.70-1.30 mg/dL High CREAT,SERUM 1.34 Result Comment: The validity of the calculated GFR AND GFRAA in patients over 70 years has not been determined. Clinical correlation is essential. LAB L501.1110 >60 mL/min Low EST GFR 57 Result Comment: Non- GFR Calc LAB L501.1115 >60 mL/min Normal EST GFR - AA 69 Result Comment: GFR Calc LAB L501.1255 ml/min Normal Estimated CRCL 50.70 LAB L501.1300 10-20 RATIO High BUN/CRE 26.9 LAB L501.2200 8.5-10 mg/dL Normal .1 CA 8.5 LAB L501.5300 136-14 mmol/L Normal 5 NA 137 LAB L501.5600 3.5-5. mmol/L Normal 1 K 3.9 LAB L501.5900 98-107 mmol/L Normal CL 104 LAB L501.6100 21.0-3 mmol/L Normal 2.0 CO2 22.0 LAB L501.6200 5-15 Normal GAP 11 Performed By: #### L500.2500 #### [facility] [place], [address] CBC W/DIFF, AUTOMATED Collected: 04/10/2018 Status: F Source: [place] 6:08 AM [facility] REPOSITORY TYPE CODE TESTS RESULT OUT OF RANGE REFERENCE UNITS LAB L100.1000 4.4-11.0 K/mm3 High WBC 13.6 LAB L100.1200 4.6-6.2 M/mm3 Low RBC 3.00 LAB L100.1300 13.0-16.5 g/dl Low HGB 8.9 LAB L100.1400 40-54 % Low HCT 29.0 LAB L100.1500 80-94 fL High MCV 96.7 LAB L100.1600 27.0-32.0 pg Normal MCH 29.7 LAB L100.1700 32-36 g/gl Low MCHC 30.7 LAB L100.1810 11.6-14.6 % High RDW CV 17.4 LAB L100.1820 35.1-43.9 fl High RDW SD 60.8 LAB L100.1900 150-450 K/mm3 Normal PLT 251 LAB L100.2000 6.2-12.0 fl Normal MPV 9.9 LAB L100.2100 47-70 % High NEUT% 90.9 LAB L100.2200 19-41 % Low LY% 3.8 LAB L100.2300 0-10 % Normal MONO% 4.9 LAB L100.2400 0-5 % Normal EO% 0.0 LAB L100.2500 0-1 % Normal BASO% 0.1 LAB L100.2550 0.0-0.9 % Normal IM GRAN % 0.300 Result Comment: IG% - Immature Granulocytes (promyelocytes, myelocytes and metamyelocytes) > 1% indicates that a LEFT SHIFT is Present. LAB L100.2620 2.0-7.7 X10 3/uL High Absolute Neut 12.4 LAB L100.2720 0.83-4.51 X10 3/ul Low Absolute Lymph 0.51 LAB L100.4500 Normal SMEAR COMMENT SCANNED Performed By: #### L100.0100 #### [facility] [address] [place], [address] CONSULTATION Observed: 04/09/2018 Status: F Source: [place] 9:07 AM [facility] REPOSITORY [facility] Medical Records Department [address] [place] [address] Consultation 04/09/18 0902 MR#: [id number] Acct: [id number] Name: YENNI GIMENEZ Rep #: [id number] : 1950 67 From: Alvaro Zhou MD PCP: SEUN Poe Status: ADM SLADE Y [place] [facility] [place] Problem List (1) UTI (urinary tract infection) Status: Acute Qualifiers: Urinary tract infection type: catheter-associated UTI Indwelling urinary catheter type: indwelling urethral catheter Encounter type: subsequent encounter Qualified Code(s): T83.511D - Infection and inflammatory reaction due to indwelling urethral catheter, subsequent encounter; N39.0 - Urinary tract infection, site not specified Reason for Consult Date of Consultation: 04/09/18 Reason for Consultation: cath ass UTI History of Present Illness: The patient is a 67 year old male with multiple medical problems who I saw in the office after discharge from [facility] with a catheter, and [facility] it was reported the catheter was unable to be removed, he was on medical therapy for BPH with Flomax I added Proscar increase his Flomax and we pulled out the catheter for a voiding trial he failed the voiding trial and the catheter had to be replaced in my office the following day. He has quite significant medical problems with congestive heart failure shortness of breath not sure if he would tolerate prostate surgery so we are going to get cardiac clearance from his internal audit director before planning for surgery tentatively was to be planned the next week or so he then presented back to the hospital with a very high white blood count and an infection he has a catheter in place, currently he is on appropriate antibiotics clinically stable. Past Medical History Past Medical History (Chronic Problems): Chronic Problems HLD (hyperlipidemia) (Chronic) HTN (hypertension) (Chronic) PAD (peripheral artery disease) (Chronic) CAD (coronary artery disease) (Chronic) COPD (chronic obstructive pulmonary disease) (Chronic) Tobacco dependence (Chronic) CKD (chronic kidney disease) (Chronic) Leukocytosis (Chronic) Anemia (Chronic) BPH (benign prostatic hyperplasia) (Chronic) Allergies irbesartan [From Avapro] Adverse Reaction (Verified 04/07/18 20:54) Other zolpidem [From Ambien] Adverse Reaction (Verified 04/07/18 20:54) Other Home Medications: Ambulatory Orders Medication Instructions Recorded Aspirin [Aspirin, Baby] 81 mg PO DAILY@0800 01/28/18 Bumetanide 1 mg PO BID 01/28/18 Surgical History: coronary bypass surgery, tonsillectomy Psychiatric History: No pertinent psych hx Smoking Status: Current every day smoker - *Family History Maternal History Items: No pertinent history Paternal History Items: No pertinent history Review of Systems Constitutional: Reports: Fever. Denies: Chills, Weight Change HEENT: Denies: Head Aches, Sinus Congestion, Sinus Drainage Cardiovascular: Denies: Chest Pain, Palpitations Respiratory: Denies: Cough, Shortness of breath at rest, Sputum production Gastrointestinal: Denies: Abdominal Pain, Nausea, Vomiting Genitourinary: Reports: Retention. Denies: Dysuria Musculoskeletal: Denies: Joint Pain, Joint Tenderness Skin: Denies: Rash, Wounds Neurological: Denies: Numbness, Tingling, Focal weakness Psychiatric: Denies: Anxiety, Depression, Homicidal Ideations, Suicidal Ideations Hematologic/ Lymphatic: Denies: Easy Bruising, Easy Bleeding Physical Exam - Physical Exam Vital Signs Temp 99.9 F H 04/09/18 02:09 Pulse 92 04/09/18 07:25 Resp 18 04/09/18 07:25 BP 131/64 H 04/09/18 06:28 Pulse Ox 97 04/09/18 08:09 Intake AND Output Intake Total 2027 / 2027 270 / 270 Output Total 1125 / 1125 700 / 700 General: Alert, Oriented x3 HEENT: Atraumatic Oral: Moist Mucosa Neck: No JVD Lungs: Normal air movement Abdomen: Soft, Obese Laboratory Tests Past 24 Hrs Assessment/Plan All Active Problems UTI (urinary tract infection) (Acute) Sepsis (Acute) Diastolic CHF (Acute) Respiratory failure with hypoxia (Acute) 67-year-old male who has multiple medical problems high risk for complications and is immunocompromised who had a catheter was replaced after was not able to urinate and presented to the hospital with an infection, cultures come back from the April 05 continue with antibiotics per the culture results. Want to leave the catheter in place, at this point continue with treatment of his infection hopefully his white count will resolve probably want to hold off on prostate surgery until his infection is completely cleared and also I had still pending cardiac clearance may consider an office procedure such as a microwave therapy given his cardiac risk for surgery. 04/09/18906 <Electronically signed by Alvaro Zhou MD> Date Alvaro Zhou MD Cosigner Signature (if applicable): Date CC: SEUN Berger; Alvaro Zhou MD Signed BASIC METABOLIC Collected: 04/09/2018 Status: F Source: [place] PROFILE ([facility]) 5:15 AM [facility] REPOSITORY TYPE CODE TESTS RESULT OUT OF RANGE REFERENCE UNITS LAB L501.0100 74-106 mg/dL High GLU 128 Result Comment: Fasting Glucose result greater than or equal to 126 mg/dL suggests DIABETES MELLITUS per A.D.A. criteria. Please note revised GLUCOSE reference range effective 2017. LAB L501.1000 7-18 mg/dL High BUN 35 LAB L501.1100 0.70-1.30 mg/dL High CREAT,SERUM 1.67 Result Comment: The validity of the calculated GFR AND GFRAA in patients over 70 years has not been determined. Clinical correlation is essential. LAB L501.1110 >60 mL/min Low EST GFR 44 Result Comment: Non- GFR Calc LAB L501.1115 >60 mL/min Low EST GFR - AA 53 Result Comment: GFR Calc LAB L501.1255 ml/min Normal Estimated CRCL 40.68 LAB L501.1300 10-20 RATIO High BUN/CRE 21.0 LAB L501.2200 8.5-10 mg/dL Low .1 CA 8.3 LAB L501.5300 136-14 mmol/L Normal 5 NA 138 LAB L501.5600 3.5-5. mmol/L Normal 1 K 3.6 LAB L501.5900 98-107 mmol/L Normal CL 103 LAB L501.6100 21.0-3 mmol/L Normal 2.0 CO2 25.0 LAB L501.6200 5-15 Normal GAP 10 Performed By: #### L500.2500, L500.4100, L501.2300, L501.5200 #### [facility] [address] [place], [place], [address] LIPID PROFILE Collected: 04/09/2018 Status: F Source: [place] 5:15 AM [facility] REPOSITORY TYPE CODE TESTS RESULT OUT OF RANGE REFERENCE UNITS LAB L501.4900 200 mg/dL Normal CHOL 71 Result Comment: <200 mg/dL Desirable 200-240 mg/dL Borderline >240 mg/dL High Risk LAB L501.5000 mg/dL Normal TRIG 72 Result Comment: The drugs N-Acetylcysteine and Metamizole may falsely depress this assay. Serum Triglycerides Reference Interval Normal <150 mg/dL Borderline high 150 - 199 mg/dL High 200 - 499 mg/dL Very High > or = 500 mg/dL LAB L501.6400 mg/dL Normal HDL 43 Result Comment: The drugs N-Acetylcysteine and Metamizole may falsely depress this assay. Reference Range HDL <40 mg/dL Low HDL Cholesterol HDL >or= 60 mg/dL High HDL Cholesterol LAB L501.6500 0-130 mg/dL Normal LDL 14 LAB L501.6600 5-40 mg/dL Normal VLDL 14 Performed By: #### L500.2500, L500.4100, L501.2300, L501.5200 #### [facility] [address] [place], [place], [id number] PHOSPHORUS Collected: 04/09/2018 Status: F Source: [place] 5:15 AM [facility] REPOSITORY TYPE CODE TESTS RESULT OUT OF RANGE REFERENCE UNITS LAB L501.2300 2.5-4.9 mg/dL Normal PHOS 3.3 Performed By: #### L500.2500, L500.4100, L501.2300, L501.5200 #### [facility] [address] [place], [place], [address] MAGNESIUM Collected: 04/09/2018 Status: F Source: [place] 5:15 AM [facility] REPOSITORY TYPE CODE TESTS RESULT OUT OF RANGE REFERENCE UNITS LAB L501.5200 1.6-2.6 mg/dL Normal MG 2.5 Performed By: #### L500.2500, L500.4100, L501.2300, L501.5200 #### [facility] [address] [place], [address] CBC W/DIFF, AUTOMATED Collected: 04/09/2018 Status: F Source: [place] 5:15 AM [facility] REPOSITORY TYPE CODE TESTS RESULT OUT OF RANGE REFERENCE UNITS LAB L100.1000 4.4-11.0 K/mm3 High WBC 25.0 LAB L100.1200 4.6-6.2 M/mm3 Low RBC 2.72 LAB L100.1300 13.0-16.5 g/dl Low HGB 8.2 LAB L100.1400 40-54 % Low HCT 26.8 LAB L100.1500 80-94 fL High MCV 98.5 LAB L100.1600 27.0-32.0 pg Normal MCH 30.1 LAB L100.1700 32-36 g/gl Low MCHC 30.6 LAB L100.1810 11.6-14.6 % High RDW CV 17.6 LAB L100.1820 35.1-43.9 fl High RDW SD 62.6 LAB L100.1900 150-450 K/mm3 Normal PLT 267 LAB L100.2000 6.2-12.0 fl Normal MPV 9.4 LAB L100.2100 47-70 % High NEUT% 87.3 LAB L100.2200 19-41 % Low LY% 4.4 LAB L100.2300 0-10 % Normal MONO% 7.9 LAB L100.2400 0-5 % Normal EO% 0.1 LAB L100.2500 0-1 % Normal BASO% 0.1 LAB L100.2550 0.0-0.9 % Normal IM GRAN % 0.200 Result Comment: IG% - Immature Granulocytes (promyelocytes, myelocytes and metamyelocytes) > 1% indicates that a LEFT SHIFT is Present. LAB L100.2620 2.0-7.7 X10 3/uL High Absolute Neut 21.8 LAB L100.2720 0.83-4.51 X10 3/ul Normal Absolute Lymph 1.11 LAB L100.4500 Normal SMEAR COMMENT SCANNED Performed By: #### L100.0100 #### [facility] [address] [place], [place], [address] BNP,B-TYPE NATRIURETIC Collected: 04/09/2018 Status: F Source: [place] PEPTIDE 5:15 AM [facility] REPOSITORY TYPE CODE TESTS RESULT OUT OF RANGE REFERENCE UNITS LAB L503.6620 0-100 pg/mL High B-TYPE 1706.3 ALISSA PEP Performed By: #### L503.6620 #### [facility] [address] [place], [address] PROTEIN ELECTROPH, S Collected: 04/09/2018 Status: F Source: [place] 5:15 AM [facility] REPOSITORY Order Comment: OKAY TO DO WITH MORNING LABS PER NURSE TYPE CODE TESTS RESULT OUT OF RANGE REFERENCE UNITS LAB L3100.3500 6.0-8.5 g/dL Low PROTEIN,TOTAL 5.4 LAB L3100.3600 2.9-4.4 g/dL Low ALBUMIN 2.8 LAB L3100.3700 0.0-0.4 g/dL High ALPHA-1 GLOBUL 0.5 LAB L3100.3800 0.4-1.0 g/dL Normal ALPHA-2 GLOBUL 0.8 LAB L3100.3900 0.7-1.3 g/dL Normal BETA GLOBULIN 0.7 LAB L3100.4000 0.4-1.8 g/dL Normal GAMMA GLOBULIN 0.5 LAB L3100.4110 Normal M-SPIKE Result Comment: NOT OBSERVED LAB L3100.4200 2.2-3.9 g/dL GLOBULIN, TOTAL Normal 2.6 LAB L3100.4300 0.7-1.7 A/G RATIO Normal 1.1 LAB L3100.4320 . INTERPRETATION Normal Comment Result Comment: Protein electrophoresis scan will follow via computer, mail, or political analyst delivery. LAB L3100.4340 . Normal NOTE: Comment Result Comment: The SPE pattern reflects non-selective protein loss. Protein losing syndromes, in which this pattern has been observed include: malnutrition, exudative dermatopathies, tavera, exudative pulmonary disease, essential hypoproteinemia, protein losing gastroentero-pathies, blood loss, and plasmaphoresis. Monoclonal protein is not apparent. Performed By: #### L3100.3450, L3200.1275 #### [facility] (refer to report for specific site) refer to report for address and phone number IMMUNOFIXATION, SERUM Collected: 04/09/2018 Status: F Source: [place] 5:15 AM [facility] REPOSITORY Order Comment: OKAY TO DO WITH MORNING LABS PER NURSE TYPE CODE TESTS RESULT OUT OF RANGE REFERENCE UNITS LAB L3200.9562 597-6644 mg/dL Low IMMUNO G 511 LAB L3200.1400 61-437 mg/dL Normal IMMUNO A 136 LAB L3200.1500 20-172 mg/dL Normal IMMUNOGL M 31 Result Comment: Performed at: [address] [id number] Laundry Housekeeper: Erlin Palomo PhD, Phone: [phone] LAB L3200.4109 . Normal ELIANE RESULT,S Comment Result Comment: No monoclonality detected. Performed By: #### L3100.3450, L3200.1275 #### [facility] (refer to report for specific site) refer to report for address and phone number PROTEIN ELECTRO.UR-RANDOM Collected: Status: F Source: [place] 04/08/2018 1:40 PM [facility] REPOSITORY TYPE CODE TESTS RESULT OUT OF RANGE REFERENCE UNITS LAB L3600.4100 Not Estab. mg/dL Normal 43.1 PROTEIN,UR LAB L3600.4200 . % Normal 47.4 ALBUMIN,UR LAB L3600.4300 . % Normal 4.7 WTRHU-0-BANZ ,U LAB L3600.4400 . % Normal 13.7 WBNVM-1-XRCR ,U LAB L3600.4500 . % Normal BETA 21.4 GLOB,U LAB L3600.4600 . % Normal GAMMA 12.7 GLOB,U LAB L3600.4720 Normal M-SPIKE,U Result Comment: NOT OBSERVED LAB L3600.4800 . Normal NOTE Comment Result Comment: Protein electrophoresis scan will follow via computer, mail, or political analyst delivery. Performed at: [address] [id number] Laundry Housekeeper: Erlin Palomo PhD, Phone: [phone] Performed By: #### L3600.4000 #### [facility] (refer to report for specific site) refer to report for address and phone number ECHOCARDIOGRAM COMPLETE Observed: 04/08/2018 Status: F Source: [place] 10:23 AM [facility] REPOSITORY [facility] Cardiovascular Services [address] [place] [address] Echo Complete 04/08/18 0803 MR#: [id number] Acct: [id number] Name: YENNI GIMENEZ Rep #: [id number] : 1950 67 From: Chepe Barrientos MD Attending Dr: Kiana Armijo Status: ADM SLADE Ordering Dr: Jada Armijo DO Date: 04/08/18 Location: [facility] Sex: M C Admitted: 04/07/18 Reason For Study: CHF Procedure This was a 2D Doppler, Color Flow transthoracic echocardiogram. Exam performed portable in patient room. Left Ventricle Normal size and thickness. The estimated ejection fraction is 55 %. Stage 2 diastolic dysfunction. No regional wall motion abnormalities noted. Right Ventricle Normal size and thickness. Normal systolic function. Atria The left atrium is moderately enlarged. Normal right atrium. Normal atrial septum. Mitral Valve The mitral valve is structurally normal. No prolapse or stenosis seen. Mild (1+) mitral valve insufficiency. Tricuspid Valve Normal tricuspid valve. Trivial tricuspid valve insufficiency. Right ventricular systolic pressure estimated to be 42 mmHg. Mild pulmonary hypertension. Aortic Valve Trisinus/trileaflet aortic valve. Pulmonic Valve Normal pulmonic valve. Great Vessels Normal aortic root. Normal arch. Normal inferior vena cava. Inferior vena cava collapse with sniff. Pericardium/Pleural No pericardial effusion. MMode/2D Measurements AND Calculations LVIDd: 4.7 cm IVSd: 1.6 cm Ao root diam: 3.5 cm LVIDs: 3.4 cm LVPWd: 1.3 cm LA dimension: 4.0 cm FS: 27.4 % LAV(MOD-bp): 69.5 ml LVAd ap4: 29.4 cm2 SV(MOD-sp4): 45.6 ml LAV(MOD-bp) Indexed: 34.5 ml/m2 EDV(MOD-sp4): 84.4 ml LAV(MOD-sp2): 67.0 ml EDV(sp4-el): 89.2 ml LAV(MOD-sp4): 71.9 ml LVAs ap4: 17.6 cm2 ESV(MOD-sp4): 38.7 ml ESV(sp4-el): 39.1 ml EF(MOD-sp4): 54.1 % EF(sp4-el): 56.1 % SV(sp4-el): 50.1 ml LA A4 area: 22.9 cm2 RA A4 area: 18.6 cm2 Time Measurements MV dec time: 0.14 sec Doppler Measurements AND Calculations MV E max matt: 143.0 cm/sec Ao V2 max: 138.5 cm/sec LV V1 max: 106.0 cm/sec MV A max matt: 65.4 cm/sec Ao max P.7 mmHg LV V1 max P.5 mmHg MV E/A: 2.2 Ao V2 mean: 95.0 cm/sec LV V1 mean P.4 mmHg Ao mean P.0 mmHg LV V1 mean: 73.6 cm/sec Ao V2 VTI: 27.4 cm LV V1 VTI: 23.2 cm MR max matt: 554.1 cm/sec PA V2 max: 117.7 cm/sec TR max matt: 305.0 cm/sec MR max P.8 mmHg TR max P.2 mmHg MR mean matt: 447.5 cm/sec MR mean P.2 mmHg MR VTI: 178.7 cm Interpretation Summary The estimated ejection fraction is 55 %. Stage 2 diastolic dysfunction. The left atrium is moderately enlarged. Mild (1+) mitral valve insufficiency. Trivial tricuspid valve insufficiency. Right ventricular systolic pressure estimated to be 42 mmHg. Mild pulmonary hypertension. Compared to echo report dated 10/11/2009, LV function has remaained the same. RVSP was not assessed at that time. Ordering Physician: Kiana Armijo Referring Physician: Wong Berger Performed By: Morro Anguiano RCS 04/08/18 1023 Date Chepe Barrientos MD CC: BARREL LATHE OPERATOR INSIDE-C Wong Berger; Kiana Armijo Date Dictated: 04/08/18 0803 Date Transcribed: 04/08/181022 Specialty Manufacturing Supervisor: Signed ABDOMEN/PELVIS WITHOUT Observed: 04/08/2018 Status: F Source: [place] CONT 6:49 AM [facility] REPOSITORY [facility] Imaging Services [address] [place] [id number] Abdomen/Pelvis without Cont MR#: [id number] Acct: [id number] Name: YENNI GIMENEZ Rep #: [id number] : 1950 M 67 From: Stephanie Martínez MD PCP: SEUN Poe Status: ADM SLADE Study: Abdomen/Pelvis without Cont Date of Exam: 04/08/18 Exam# [id number] Ordering Dr: Jada Armijo DO STUDY: CT ABDOMEN AND PELVIS WITHOUT CONTRAST REASON FOR EXAM: Male, 67 years old. Renal failure Urinary tract obstruction. Chronic kidney disease stage III. RADIATION DOSAGE (If Supplied By Facility): CTDIvol = ( 18.03 ) mGy, DLP = ( 896.31 ) mGycm TECHNIQUE: Transaxial images were obtained from the dome of the diaphragm to the symphysis pubis without oral contrast, and without intravenous contrast. Sagittal and coronal images were reconstructed. Individualized dose optimization techniques were used for this CT. COMPARISON: February 13, 2004 CT scan abdomen and pelvis FINDINGS: There is a focus of right lower lobe consolidation with a small right effusion. There is a small left effusion minimal left lower lobe atelectasis. There is partial visualization of sternotomy wires. There is dense coronary calcification seen in the right coronary artery. There is a lymph node in the peridiaphragmatic fat measuring 7.7 mm. The liver is mildly enlarged. The gallbladder is contracted. Normal spleen. Normal pancreas. Normal bilateral adrenal glands. There are calcifications in the right renal hilum compatible vascular calcifications. There is no evidence of hydronephrosis. There is severe left renal atrophy. There is severe plaquing at the takeoff of the right renal artery likely significant stenosis. There is likely stenosis or near occlusion of the left renal artery which is densely calcified. There is left side perinephric stranding within the fat. There is a minimal left renal cyst measuring 7 mm. Normal visualized stomach. Normal small intestine. Normal colon. The appendix is visualized and appears normal. The aorta is densely calcified. The aorta at the hiatus measures 2.1 x 2.2 cm. There is dense calcification takeoff of the celiac with moderate to severe plaque formation which can be best appreciated on the coronal view image #[id number]. There is also dense plaque formation of the visualized spinal mesenteric artery which shows probable significant stenosis 3 cm from the takeoff image #61. As detailed above there is significant plaque formation of the bilateral renal arteries. There is calcification of the inferior mesenteric artery which is likely at least partially occluded. Within the infrarenal aorta there is central and peripheral plaque formation. The aorta measures 1.3 x 1.1 cm with mild to moderate stenosis. Above the bifurcation the aorta measures 1.4 x 1.2 cm. The bilateral iliac arteries are densely calcified as well as the bilateral internal and external iliac arteries. There is partial visualization of the left common femoral artery which is at least moderately stenosed. Image #166 axial views. Normal inferior vena cava. There few nonspecific subcentimeter periaortic lymph nodes. There is a Charles catheter in the bladder. Extremely thick walled appearing bladder is decompressed around the Charles. There is a small amount of gas in the bladder. There is mild prostate enlargement. There are bilateral fatty one hernias. There is multilevel degenerative change in the thoracolumbar spine. At L2-L3, L3-L4, L4-L5 and L5-S1 there is a broad disc bulge with moderate neural foramina narrowing. At L2 L3 L3 L4 L4 L5 there is moderate central stenosis. There is mild central stenosis L5-S1. The left ilium there is a focal sclerotic lesion measuring 1.0 cm. This is new since the prior study. CT/Abdomen/Pelvis without Cont IMPRESSION: Right lower lobe consolidation small right effusion consider possible pneumonia. Left pleural effusion and left lower lobe atelectasis. Dense coronary calcification status post sternotomy. Mild hepatomegaly. Densely calcified vessels of the abdomen is detailed above including critical calcification and stenosis of the bilateral renal arteries. Since the prior study 2003 there is been interval severe atrophy of the left kidney likely due to stenosis of the renal artery. In addition there is marked worsening of the calcification of the celiac and inferior mesenteric arteries. Significant stenosis of the left common femoral artery Wall thickening of the bladder suspicious for cystitis. Mild enlargement of the prostate. Degenerative changes of thoracolumbar spine Osteoblastic lesion in the left ilium recommend follow-up bone scan. Although this may represent a focus of sclerosis interval development raises concern for underlying osteoblastic metastatic disease. Electronically Signed: Stephanie Martínez MD at 9:05 EDT Tel , Service support , CC: SEUN Berger; Kiana Armijo Specialty Manufacturing Supervisor: Signed CHEST PA AND LATERAL Observed: 04/08/2018 Status: F Source: [place] 6:46 AM [facility] REPOSITORY [facility] Imaging Services [address] [place] [address] Chest PA and Lateral MR#: [id number] Acct: [id number] Name: YENNI GIMENEZ Uzair Rep #: [id number] : 1950 M 67 From: Stephanie Martínez MD PCP: SEUN Poe Status: ADM SLADE Study: Chest PA and Lateral Date of Exam: 04/08/18 Exam# [id number] Ordering Dr: Jada Armijo DO STUDY: X-RAY CHEST REASON FOR EXAM: Male, 67 years old. CHF TECHNIQUE: PA and lateral views of the chest. COMPARISON: April 07, 2018 chest x-ray FINDINGS: Interstitial markings are mildly prominent. There is hazy focal left lower lobe opacity. Trace blunting of the left costophrenic angle. There is minimal opacity in the right lower lobe. Sternal cerclage wires are present from a prior sternotomy. Normal mediastinum and justyn. Normal visualized pulmonary arteries. There is atherosclerotic calcification of the aortic arch with tortuosity. There are diffuse degenerative changes of the visualized thoracic spine. Normal visualized ribs, clavicles, and shoulders. There is no demonstrated abnormality of the visualized soft tissue structures of the upper abdomen. RAD/Chest PA and Lateral IMPRESSION: Post sternotomy. Trace left effusion atelectasis and/or infiltrate. Trace right lower lobe atelectasis. Mild interstitial prominence or mild vascular congestion. Electronically Signed: Stephanie Martínez MD at 9:23 EDT Tel , Service support , CC: SEUN Armijo Specialty Manufacturing Supervisor: Signed HISTORY AND PHYSICAL Observed: 04/08/2018 Status: F Source: [place] EXAM 3:12 AM [facility] REPOSITORY [facility] Medical Records Department [address] [place] [address] History and Physical 04/07/18 2323 MR#: [id number] Acct: [id number] Name: YENNI GIMENEZ Rep #: [id number] : 1950 67 From: Shay Sharma MD PCP: SEUN Poe Status: ADM SLADE Y Location: [place] [address] Problem List (1) UTI (urinary tract infection) Status: Acute (2) Sepsis Status: Acute (3) Diastolic CHF Status: Acute Qualifiers: Heart failure chronicity: acute on chronic Qualified Code(s): I50.33 - Acute on chronic diastolic (congestive) heart failure (4) Respiratory failure with hypoxia Status: Acute (5) Anemia Status: Chronic (6) CKD (chronic kidney disease) Status: Chronic Qualifiers: Chronic kidney disease stage: stage 3 (moderate) Qualified Code(s): N18.3 - Chronic kidney disease, stage 3 (moderate) (7) HLD (hyperlipidemia) Status: Chronic (8) HTN (hypertension) Status: Chronic (9) PAD (peripheral artery disease) Status: Chronic (10) Tobacco dependence Status: Chronic History of Present Illness Date of Admission: 04/07/18 Chief Complaint: Sepsis secondary to UTI The patient is a 67 year old male w/ h/o CAD, CHF, COPD, HTN, BPH, lipidemia and urinary obstruction admitted for sepsis secondary to UTI. He was recently discharged from [facility] last week with a charles catheter secondary to urinary obstruction secondary to BPH. He was seen in the ED several days away when his charles was flushed. He also saw Dr. Zhou and his cath was removed. However, he was not able to urinate and the cath was placed back. He was supposed to have surgery sometimes next week for BPH. He continued to have pain at the cath insertion site. Pain was sharp and constant. Pain was severe that it interfered with his ADL. Nothing made the pain better or worse. HE continued to have minimal UOP. No blood noted. No fever or chill. Past Medical History Past Medical History (Chronic Problems): Chronic Problems HLD (hyperlipidemia) (Chronic) HTN (hypertension) (Chronic) PAD (peripheral artery disease) (Chronic) CAD (coronary artery disease) (Chronic) COPD (chronic obstructive pulmonary disease) (Chronic) Tobacco dependence (Chronic) CKD (chronic kidney disease) (Chronic) Leukocytosis (Chronic) Anemia (Chronic) BPH (benign prostatic hyperplasia) (Chronic) Allergies irbesartan [From Avapro] Adverse Reaction (Verified 04/07/18 20:54) Other zolpidem [From Ambien] Adverse Reaction (Verified 04/07/18 20:54) Other Home Medications: Ambulatory Orders Medication Instructions Recorded Aspirin [Aspirin, Baby] 81 mg PO DAILY@0800 01/28/18 Surgical History: coronary bypass surgery, tonsillectomy Psychiatric History: No pertinent psych hx Smoking Status: Current every day smoker - *Family History Maternal History Items: No pertinent history Paternal History Items: No pertinent history Review of Systems Constitutional: Denies: Chills, Fever, Weight Change HEENT: Denies: Head Aches, Sinus Congestion, Sinus Drainage Cardiovascular: Denies: Chest Pain, Palpitations Respiratory: Denies: Cough, Shortness of breath at rest, Sputum production Gastrointestinal: Denies: Abdominal Pain, Nausea, Vomiting Genitourinary: Denies: Dysuria Musculoskeletal: Reports: - - Penile pain. Denies: Joint Pain, Joint Tenderness Skin: Denies: Rash, Wounds Neurological: Denies: Numbness, Tingling, Focal weakness Psychiatric: Denies: Anxiety, Depression, Homicidal Ideations, Suicidal Ideations Hematologic/ Lymphatic: Denies: Easy Bruising, Easy Bleeding VTE Information - Inpt Only VTE Present on Admission: No VTE Mechan Device Prophylaxis: SCD's VTE Pharm Prophylaxis ordered?: Yes Patient Problems: Active and Suspected Problems UTI (urinary tract infection) (Acute) Sepsis (Acute) - Physical Exam General: Alert, Oriented x3, Cooperative HEENT: Atraumatic, PERRLA, EOMI, Normocephalic Neck: Supple, No JVD, Negative Carotid Bruits Lungs: Clear to auscultation, Normal air movement Cardiovascular: Regular rate, No murmurs Abdomen: Bowel Sounds Present, Soft, Non Tender Extremities: No edema, Capillary Refill Less than 3 Seconds Skin: No rashes, No breakdown Musculoskeletal: No Tenderness to Palpation of Joints or Extremities Neurological: Cranial nerves II-XII grossly intact Psych/Mental Status: Normal Affect, Appropriate Vital Signs Temp Pulse Resp BP Pulse Ox 101.3 F H 92 20 H 144/69 H 97 04/07/18 20:54 04/07/18 22:59 04/07/18 22:59 04/07/18 20:54 04/07/18 22:59 Oxygen Delivery Method Room Air Weight: 91.2 kg Body Mass Index (BMI) 31.4 Laboratory Tests Past 24 Hrs WBC 30.5 H* RBC 2.91 L Hgb 8.8 L Hct 27.5 L MCV 94.5 H MCH 30.2 MCHC 32.0 Assessment/Plan All Active Problems UTI (urinary tract infection) (Acute) Sepsis (Acute) Diastolic CHF (Acute) Respiratory failure with hypoxia (Acute) 67 year old male w/ h/o CAD, CHF, COPD, HTN, BPH, lipidemia and urinary obstruction admitted for sepsis secondary to UTI. 1) Sepsis secondary to UTI secondary to charles cath: Urine culture from 2 days ago it appears to be growing Pseudomonas. Urinalysis shows 25-50 white blood cells with 5-10 RBCs. WBC 30.5 with 86% neutrophils. Will start cefepime. Awaiting cultures and sensitivity. Will get lactate. Will start tylenol PRN. IVF hydration. Consult urology 2) DAI: Most likely azotemia. Hydration. Monitor. 3) Hyponatremia: Na 130 Hydration and if no improvement, will get urine osmol, serum osmol, urine Na, and TSH. May need workup as pt has 3+ edema. 4) Chronic issues: CAD, CHF, COPD, HTN, BPH, lipidemia and urinary obstruction. Resume home meds with the exception of diuretics at this time given DAI. Monitor. 5) Prophylaxis: SCD / heparin. 04/08/18311 <Electronically signed by Shay Sharma MD> Date Shay Sharma MD Cosigner Signature: Date (if applicable) CC: SEUN Berger; Shay Sharma MD Signed PROTHROMBIN TIME W/INR Collected: 04/08/2018 Status: F Source: [place] 2:53 AM [facility] REPOSITORY TYPE CODE TESTS RESULT OUT OF RANGE REFERENCE UNITS LAB L300.4150 11.7-14.9 SECONDS High PROTIME 16.0 LAB L300.4200 Normal INR 1.3 Performed By: #### L300.3900 #### [facility] [address] [place], [place], [address] BASIC METABOLIC Collected: 04/08/2018 Status: F Source: [place] PROFILE (BMP) 2:53 AM [facility] REPOSITORY TYPE CODE TESTS RESULT OUT OF RANGE REFERENCE UNITS LAB L501.0100 74-106 mg/dL High GLU 127 Result Comment: Fasting Glucose result greater than or equal to 126 mg/dL suggests DIABETES MELLITUS per A.D.A. criteria. Please note revised GLUCOSE reference range effective 2017. LAB L501.1000 7-18 mg/dL High BUN 28 LAB L501.1100 0.70-1.30 mg/dL High CREAT,SERUM 1.88 Result Comment: The validity of the calculated GFR AND GFRAA in patients over 70 years has not been determined. Clinical correlation is essential. LAB L501.1110 >60 mL/min Low EST GFR 38 Result Comment: Non- GFR Calc LAB L501.1115 >60 mL/min Low EST GFR - AA 46 Result Comment: GFR Calc LAB L501.1255 ml/min Normal Estimated CRCL 36.14 LAB L501.1300 10-20 RATIO Normal BUN/CRE 14.9 LAB L501.2200 8.5-10 mg/dL Low .1 CA 7.9 LAB L501.5300 136-14 mmol/L Low 5 NA 135 LAB L501.5600 3.5-5. mmol/L Normal 1 K 3.5 LAB L501.5900 98-107 mmol/L Normal CL 99 LAB L501.6100 21.0-3 mmol/L Normal 2.0 CO2 26.0 LAB L501.6200 5-15 Normal GAP 10 Performed By: #### L500.2500, L501.9910 #### [facility] [address] [place], [place], [address] PSA,TOTAL - ANNUAL Collected: 04/08/2018 Status: F Source: [place] SCREEN 2:53 AM [facility] REPOSITORY TYPE CODE TESTS RESULT OUT OF REFERENCE UNITS RANGE LAB L501.9910 0.00-4.00 ng/mL High PSA,TOT 7.51 SCREEN Result Comment: This test was performed using the TPSA assay method for the [employer] chemistry system. Values obtained with different assay methods cannot be used interchangably. When changing PSA assays in the course of monitoring a patient, additional sequential testing should be carried out to confirm baseline values. Performed By: #### L500.2500, L501.9910 #### [facility] [address] [place], [place], [address] LACTIC ACID Collected: 04/08/2018 Status: F Source: [place] 2:53 AM [facility] REPOSITORY Order Comment: Yes/No query for Sepsis Lactate Rule Y TYPE CODE TESTS RESULT OUT OF RANGE REFERENCE UNITS LAB L503.6005 0.4-2.0 mmol/L Normal LACTIC ACID 0.7 Performed By: #### L503.6005 #### [facility] [address] [place], [place], [id number] LIVER PROFILE Collected: 04/08/2018 Status: F Source: [place] 2:53 AM [facility] REPOSITORY TYPE CODE TESTS RESULT OUT OF RANGE REFERENCE UNITS LAB L501.1500 6.4-8.2 g/dL Low T PROT 5.8 LAB L501.1800 3.2-5.0 g/dL Low ALB 2.7 LAB L501.1950 2.2-4.2 g/dL Normal GLOB 3.1 LAB L501.4100 15-37 U/L Normal AST 19 LAB L501.4305 45-117 U/L Normal ALK P 95 LAB L501.4405 16-61 U/L Normal ALT 23 LAB L501.4600 0.20-1.00 mg/dL Normal T BILI 0.90 LAB L501.4700 0.00-0.30 mg/dL Normal D BILI 0.25 Performed By: #### L500.3400, L501.2300, L501.5200 #### [facility] [address] [place], [place], [id number] PHOSPHORUS Collected: 04/08/2018 Status: F Source: [place] 2:53 AM [facility] REPOSITORY TYPE CODE TESTS RESULT OUT OF RANGE REFERENCE UNITS LAB L501.2300 2.5-4.9 mg/dL Normal PHOS 3.2 Performed By: #### L500.3400, L501.2300, L501.5200 #### [facility] [address] [place], [address] MAGNESIUM Collected: 04/08/2018 Status: F Source: [place] 2:53 AM [facility] REPOSITORY TYPE CODE TESTS RESULT OUT OF RANGE REFERENCE UNITS LAB L501.5200 1.6-2.6 mg/dL Normal MG 1.9 Performed By: #### L500.3400, L501.2300, L501.5200 #### [facility] [address] [place], [address] BNP,B-TYPE NATRIURETIC Collected: 04/08/2018 Status: F Source: [place] PEPTIDE 2:53 AM [facility] REPOSITORY TYPE CODE TESTS RESULT OUT OF RANGE REFERENCE UNITS LAB L503.6620 0-100 pg/mL High B-TYPE 1195.0 ALISSA PEP Performed By: #### L503.6620 #### [facility] [address] [place], [address] CHEST 1 VIEW Observed: 04/07/2018 Status: F Source: [place] (PORTABLE) 10:52 PM [facility] REPOSITORY [facility] Imaging Services [address] [place] [address] Chest 1 View (Portable) MR#: [id number] Acct: [id number] Name: YENNI GIMENEZ Rep #: [id number] : 1950 M 67 From: Stephanie Martínez MD PCP: SEUN Poe Status: REG ER Study: Chest 1 View (Portable) Date of Exam: 04/07/18 Exam# [id number] Ordering Dr: Anay Morgan MD STUDY: X-RAY CHEST REASON FOR EXAM: Male, 67 years old. Charles pain TECHNIQUE: Single x2 AP portable view of the chest. COMPARISON: January 30, 2018 chest x-ray FINDINGS: Interstitial markings are diffusely prominent similar to the prior study. There is resolve of the bilateral effusions and/or infiltrates. Sternal cerclage wires are present from a prior sternotomy. Normal mediastinum and justyn. Normal visualized pulmonary arteries. There is atherosclerotic calcification of the aortic arch with tortuosity. There are diffuse degenerative changes of the visualized thoracic spine. Normal visualized ribs, clavicles, and shoulders. There is no demonstrated abnormality of the visualized soft tissue structures of the upper abdomen. RAD/Chest 1 View (Portable) IMPRESSION: Status post sternotomy. Consider mild edema. Cannot entirely exclude underlying chronic lung disease. Electronically Signed: Stephanie Martínez MD at 23:53 EDT Tel , Service support , CC: SEUN Berger; Anay Morgan MD Specialty Manufacturing Supervisor: Signed URINALYSIS, COMPLETE Collected: 04/07/2018 Status: F Source: [place] 10:17 PM [facility] REPOSITORY Order Comment: How was Urine Obtained? CATHETER SPECIMEN TYPE CODE TESTS RESULT OUT OF RANGE REFERENCE UNITS LAB L400.3000 Yellow COLOR Normal Yellow LAB L400.3050 Clear Normal CLARITY Clear LAB L400.3200 Normal mg/dl Normal GLUCOSE, UR Normal LAB L400.3300 Negative mg/dL Normal BILIRUBIN URINE Negative LAB L400.3400 Negative mg/dl Normal KETONE UR Negative LAB L400.3465 1.002-1.030 Normal SP.GR. DIPSTX 1.010 LAB L400.3550 5.0 - 8.0 pH UR Normal 6.0 LAB L400.3600 Negative mg/dl High PROT DIPSTX 100 LAB L400.3700 Normal mg/dl Normal UROBILI Normal LAB L400.3750 Negative Normal NITRITE UR Negative LAB L400.3780 Negative /ul High OCCULT BLOOD-UR 250 LAB L400.3800 Negative /ul High LEUK ESTERASE 500 LAB L400.4050 0-5 /hpf WBC Normal 25-50 SEEN LAB L400.4100 0-5 /hpf Normal RBC-UA 5-10 SEEN LAB L400.4150 0-5 /hpf SQUAM Normal EPI 0-5 SEEN LAB L400.4300 None Seen /hpf 0 Normal BACTERIA SEEN LAB L400.4350 <or=2+ /hpf 0 Normal MUCUS, URINE SEEN LAB L400.4400 0-5 /lpf Normal HYALINE CAST 0-5 SEEN Performed By: #### L400.0001 #### [facility] [address] [place], [place], [id number] Observed: 04/07/2018 Status: F Source: [place] CULTURE, BLOOD (WB) 9:55 PM [facility] REPOSITORY BC No growth in 5 days. Performed By: #### M200.1000 #### [facility] [address] [place], [place], [id number] BASIC METABOLIC Collected: 04/07/2018 Status: F Source: [place] PROFILE (BMP) 9:45 PM [facility] REPOSITORY TYPE CODE TESTS RESULT OUT OF RANGE REFERENCE UNITS LAB L501.0100 74-106 mg/dL Normal GLU 98 Result Comment: Please note revised GLUCOSE reference range effective 2017. LAB L501.1000 7-18 mg/dL High BUN 26 LAB L501.1100 0.70-1.30 mg/dL High CREAT,SERUM 2.08 Result Comment: The validity of the calculated GFR AND GFRAA in patients over 70 years has not been determined. Clinical correlation is essential. LAB L501.1110 >60 mL/min Low EST GFR 34 Result Comment: Non- GFR Calc LAB L501.1115 >60 mL/min Low EST GFR - AA 41 Result Comment: GFR Calc LAB L501.1255 ml/min Normal Estimated CRCL 32.66 LAB L501.1300 10-20 RATIO Normal BUN/CRE 12.5 LAB L501.2200 8.5-10 mg/dL Normal .1 CA 8.6 LAB L501.5300 136-14 mmol/L Low 5 NA 130 LAB L501.5600 3.5-5. mmol/L Normal 1 K 3.9 LAB L501.5900 98-107 mmol/L Low CL 96 LAB L501.6100 21.0-3 mmol/L Normal 2.0 CO2 26.0 LAB L501.6200 5-15 Normal GAP 8 Performed By: #### L500.2500 #### [facility] [address] [place], [place], [address] CBC W/DIFF, AUTOMATED Collected: 04/07/2018 Status: C Source: [place] 9:45 PM [facility] REPOSITORY TYPE CODE TESTS RESULT OUT OF RANGE REFERENCE UNITS LAB L100.1000 4.4-11.0 K/mm3 High alert WBC 30.5 Result Comment: CRITICAL VALUE VERIFIED. CALLED TO MMARTIN 04/07/182206 Bri Small. RESULTS READ BACK BY SAME . LAB L100.1200 4.6-6.2 M/mm3 Low RBC 2.91 LAB L100.1300 13.0-16.5 g/dl Low HGB 8.8 LAB L100.1400 40-54 % Low HCT 27.5 LAB L100.1500 80-94 fL High MCV 94.5 LAB L100.1600 27.0-32.0 pg Normal MCH 30.2 LAB L100.1700 32-36 g/gl Normal MCHC 32.0 LAB L100.1810 11.6-14.6 % High RDW 17.1 CV LAB L100.1820 35.1-43.9 fl High RDW 58.9 SD LAB L100.1900 150-450 K/mm3 Normal PLT 260 LAB L100.2000 6.2-12.0 fl Normal MPV 8.8 LAB L100.2100 47-70 % High NEUT% 86.3 LAB L100.2200 19-41 % Low LY% 4.8 LAB L100.2300 0-10 % Normal MONO% 8.6 LAB L100.2400 0-5 % Normal EO% 0.0 LAB L100.2500 0-1 % Normal BASO% 0.1 LAB L100.2550 0.0-0.9 % Normal IM 0.200 GRAN % Result Comment: IG% - Immature Granulocytes (promyelocytes, myelocytes and metamyelocytes) > 1% indicates that a LEFT SHIFT is Present. LAB L100.2620 2.0-7.7 X10 3/uL High Absolute Neut 26.3 LAB L100.2720 0.83-4.51 X10 3/ul Normal Absolute Lymph 1.48 LAB L100.4500 Normal SMEAR COMMENT SCANNED Result Comment: LEUKOCYTOSIS NOTED NEUTROPHILIA NOTED LAB L100.9900 Normal Reviewed PATH REV Result Comment: Neutrophilic leukocytosis. Macrocytic anemia. Clinical correlation necessary. Tonio Mccray M.D. 04/11/18 Pathologist comment added AMENDED REPORT 04/11/18 1132 PATH REV previously reported as: February rosaline Performed By: #### L100.0100 #### [facility] [address] [place], [address] Observed: 04/07/2018 Status: F Source: [place] CULTURE, BLOOD (WB) 9:45 PM [facility] REPOSITORY BC No growth in 5 days. 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 Approval by Infectious Disease Specialist required before non-formulary drugs may be ordered and/or dispensed. Performed By: #### M100.0650 #### [facility] [address] [place], [address] EMERGENCY DEPARTMENT Observed: 04/06/2018 Status: F Source: [place] SUMMARY 2:39 AM [facility] REPOSITORY [facility] Medical Records Department [address] [place] [address] Emergency Department Summary 04/05/18 2239 MR#: [id number] Acct: [id number] Name: LONYENNI Rep #: [id number] : 1950 67 From: Andreia Jeffery MD PCP: SEUN Poe Status: DEP ER - ER Visit Summary Date of Service: 04/05/18 Chief Complaint: Blood in Charles catheter bag History of Present Illness: The patient is a 67 M presenting with blood in Charles catheter bag. Patient states he was discharged from [facility] last . He was discharged with a Charles catheter in place. He has an appointment with Dr. Zhou tomorrow. He noted blood in his Charles catheter bag today. He did not see clots. The catheter has been draining appropriately. He has no fever or other complaints. Physical Examination: Vitals are stable. Patient is afebrile. Alert no acute distress. HEENT exam is unremarkable. Neck is supple. Lungs are clear and equal bilaterally. Heart is regular rate and rhythm. Abdomen is soft nontender nondistended. Extremities are unremarkable. Skin is warm and dry. No focal neurologic deficit. Remainder of exam is unremarkable. Emergency Department Course and Treatment: Charles catheter was irrigated until clear. Urine is pink tinged. There are no clots. Urinalysis shows 0-5 white cells, over 100 red cells, positive leukocyte esterase, positive nitrites. Urine culture was sent. Discussed with Dr. Zhou. Patient will be seen tomorrow as scheduled. Advised return to the ED if worsening complaints. Disposition: Discharge home Impression: Hematuria This note was generated with [employer] dictation software. It may contain incorrect words, spelling, and punctuation that were not noted in review of the chart prior to signing ED Disposition - Plan for ED Patient: Chief Complaint: Charles C/O Referrals: Wong Berger, SEUN [Primary Care Provider] - What to do if you have Problems For any increased pain, shortness of breath, bleeding, nausea or vomiting, chest pain, or any unexpected problems, contact your Primary Care Provider. Call [facility] ([phone]) or report to the closest Emergency Room. Call 911 if necessary. 04/06/18 0239 <Electronically signed by Andreia Jeffery MD> Date Andreia Jeffery MD Cosigner Signature (If Indicated): Date CC: SEUN Berger DISCHARGE INSTRUCTION Observed: 04/06/2018 Status: F Source: [place] 12:32 AM [facility] REPOSITORY [facility] Medical Records Department [address] [place] [address] Discharge Instruction 04/06/18 003 MR#: [id number] Acct: [id number] Name: YENNI GIMENEZ Rep #: [id number] : 1950 67 From: Andreia Jeffery MD PCP: SEUN Poe Status: REG ER ED Disposition - Plan for ED Patient: Chief Complaint: Charles C/O Instructions: ED Catheter Care Charles Referrals: Wong Berger NP-C [Primary Care Provider] - Alvaro Zhou MD [STAFF PHYSICIAN] - What to do if you have Problems For any increased pain, shortness of breath, bleeding, nausea or vomiting, chest pain, or any unexpected problems, contact your Primary Care Provider. Call [facility] ([phone]) or report to the closest Emergency Room. Call 911 if necessary. 04/06/1831 <Electronically signed by nAdreia Jeffery MD> Date Andreia Jeffery MD Cosigner Signature (If Indicated): Date CC: SEUN Berger URINALYSIS, COMPLETE Collected: 04/05/2018 Status: F Source: [place] 11:25 PM [facility] REPOSITORY Order Comment: Order Date: 04/05/18 COLOR OF URINE MAY AFFECT DIPSTICK RESULTS. How was Urine Obtained? CATHETER SPECIMEN TYPE CODE TESTS RESULT OUT OF RANGE REFERENCE UNITS LAB L400.3000 Yellow COLOR Normal Brown LAB L400.3050 Clear Normal CLARITY Cloudy LAB L400.3200 Normal mg/dl Normal GLUCOSE, UR Normal LAB L400.3300 Negative mg/dL Normal BILIRUBIN URINE Negative LAB L400.3400 Negative mg/dl High 5 KETONE UR LAB L400.3465 1.002-1.030 Normal SP.GR. DIPSTX 1.020 LAB L400.3550 5.0 - 8.0 pH UR Normal 5.0 LAB L400.3600 Negative mg/dl High PROT DIPSTX 100 LAB L400.3700 Normal mg/dl High 1 UROBILI LAB L400.3750 Negative High NITRITE UR Positive LAB L400.3780 Negative /ul High OCCULT BLOOD-UR 250 LAB L400.3800 Negative /ul High LEUK ESTERASE 100 LAB L400.4050 0-5 /hpf WBC Normal 0-5 SEEN LAB L400.4100 0-5 /hpf > Normal RBC-UA 100 SEEN LAB L400.4150 0-5 /hpf SQUAM 0 Normal EPI SEEN LAB L400.4300 None Seen /hpf 0 Normal BACTERIA SEEN LAB L400.4350 <or=2+ /hpf 0 Normal MUCUS, URINE SEEN LAB L400.4750 <or=1+ /hpf URIC 1+ Normal CRYSTALS Performed By: #### L400.0001 #### [facility] [address] 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 Approval by Infectious Disease Specialist required before non-formulary drugs may be ordered and/or dispensed. Performed By: #### M100.0650 #### [facility] [address] [place], [place], [address] BMP Collected: 04/03/2018 Status: F Source: [place] 12:58 PM [facility] REPOSITORY TYPE CODE TESTS RESULT OUT OF RANGE REFERENCE UNITS LAB 87866898(L 70-99 mg/dL OINC) High Glucose Lvl 115 LAB 73686542(L 7-18 mg/dL OINC) High BUN 29 LAB 8190594(LO 0.6-1.3 mg/dL INC) Normal Creatinine 1.3 LAB 41685736(L 5.4-30.0 ratio OINC) Normal BUN/Creat Ratio 22.3 LAB 12930619(L 8.4-10.2 mg/dL OINC) Calcium Normal Lvl 9.0 LAB 01266265(L 136-145 mEq/L OINC) Sodium Normal Lvl 136 LAB 27729844(L 3.5-5.1 mEq/L OINC) Low Potassium Lvl 3.4 LAB 88524804(L 98-107 mEq/L OINC) Chloride Normal 100 LAB 81439464(L 24.0-30.0 mEq/L OINC) CO2 Normal 25.2 Performed By: #### [id number] #### [facility] [address] [place], [place] [address] EGFR Collected: 04/03/2018 Status: F Source: [place] 12:58 [facility] REPOSITORY Order Comment: Order added by Discern Expert. TYPE CODE TESTS RESULT OUT OF RANGE REFERENCE UNITS LAB 98904167(LO mL/min/1.73 INC) m2 Normal eGFR 55 LAB 15884639(LO mL/min/1.73 INC) m2 Normal eGFR AA >60 Performed By: #### [id number] #### [facility] [address] [place], [place] [address] CBC W/ AUTO DIFF Collected: 04/03/2018 Status: F Source: [place] 12:58 [facility] REPOSITORY TYPE CODE TESTS RESULT OUT OF RANGE REFERENCE UNITS LAB 29685471(L 3.6-11.0 E3/mcL OINC) Normal WBC 9.5 LAB 69055552(L 3.90-6.10 E6/mcL OINC) Low RBC 2.84 LAB 47389765(L 13.5-18.0 G/DL OINC) Low Hgb 9.0 LAB 13710905(L 42.0-52.0 % OINC) Low Hct 27.8 LAB 18448863(L 11.5-14.5 % OINC) High RDW 18.0 LAB 00270255(L 27.0-31.0 pg OINC) High MCH 31.7 LAB 10307659(L 33.0-37.0 G/DL OINC) Low MCHC 32.4 LAB 98358514(L 78.0-100.0 fL OINC) Normal MCV 98.0 LAB 72787903(L 7.4-11.0 fL OINC) Normal MPV 7.4 LAB 45127396(L 130-400 E3/mcL OINC) Normal Platelet 242 Performed By: #### [id number] #### [facility] [place] [address] MORPH Collected: 04/03/2018 Status: F Source: [place] [id number] [place] [address] REPOSITORY Order Comment: Order Added by Discern Expert. TYPE CODE TESTS RESULT OUT OF REFERENCE UNITS RANGE LAB 39083712( LOINC) RBC Morph SEE Normal MORPHOLOGY LAB 31152550( LOINC) 1+ Normal Schistocytes LAB 56677369( LOINC) 1+ Normal Anisocytosis LAB 76341082( LOINC) Ovalocytes 1+ Normal Performed By: #### [id number] #### [facility] [address] [place] [address] ZZPLT MORPH Collected: 04/03/2018 Status: F Source: [address] REPOSITORY TYPE CODE TESTS RESULT OUT OF RANGE REFERENCE UNITS LAB 16346139(L OINC) Normal Platelet NORMAL Estimate LAB 45757790(L OINC) Normal Platelet Morph NORMAL Performed By: #### [id number] #### [facility] [address] [place] [address] AUTO DIFF Collected: 04/03/2018 Status: F Source: [address] REPOSITORY Order Comment: Order Added by Discern Expert. TYPE CODE TESTS RESULT OUT OF RANGE REFERENCE UNITS LAB 51095457(L 37.0-75.0 % OINC) High Neutro Auto 76.9 LAB 30447267(L 20.0-55.0 % OINC) Low Lymph Auto 10.1 LAB 67725802(L 0.0-10.0 % OINC) High [place] Auto 11.0 LAB 63348032(L 0.0-11.0 % OINC) Normal Eos Auto 1.3 LAB 48720688(L 0.0-2.0 % OINC) Normal Basophil Auto 0.7 LAB 62652611(L 1.4-6.5 E3/mcL OINC) High Neutro 7.3 Absolute LAB 57327342(L 1.2-3.4 E3/mcL OINC) Low Lymph Absolute 1.0 LAB 25285249(L 0.0-0.7 E3/mcL OINC) High [place] Absolute 1.0 LAB 07954980(L 0.0-0.7 E3/mcL OINC) Normal Eos Absolute 0.1 LAB 12240790(L 0.0-0.2 E3/mcL OINC) Normal Basophil 0.1 Absolute Performed By: #### [id number] #### [facility] [address] [place] [address] CONSULTATION Observed: 03/30/2018 Status: F Source: [facility] 10:11 PM [facility] REPOSITORY [facility] [address] [place] [address] NAME ANGELINA GIMENEZ [facility] [id number] 1950 DATE 03/27/2018 CONSULTATION LEATHER CRAFTSMAN IRVING PACHECO MD REQUESTING PHYSICIAN Kai Hand MD. REASON FOR CONSULTATION Inability to remove the Charles catheter. INDICATION This is a 67-year-old white male with a complex medical history, who apparently had some difficulties urinating and a Charles catheter was inserted a few days ago. An attempt was made to remove the Charles catheter and it appeared to be not possible. Urologic consultation was requested to address this particular issue. PAST UROLOGIC HISTORY The patient describes worsening obstructive voiding symptoms over the years, in particularly recently. The patient did not have a urologic evaluation and there was no treatment initiated. PAST MEDICAL HISTORY Significant for CAD, congestive heart failure, COPD, CVA, dyslipidemia, hypertension, myocardial infarction, obesity, history of TIA, history of 1 kidney, peripheral vascular disease, alcohol abuse, as well as tobacco abuse. PAST SURGICAL HISTORY Significant for CABG x3. He also had cardiac stents x2, as well as a kidney stent. SOCIAL HISTORY Smoking, patient is a daily smoker. He smokes cigarettes, about 10 of those every day for a period of 40 years. Alcohol, the patient currently uses beer, frequency daily, about 5-6 drinks. The patient denies using illicit drugs. FAMILY HISTORY Nothing contributory to the current urologic problem. Family history is otherwise significant for CAD. REVIEW OF SYSTEM Noncontributory. MEDICATIONS Per medication reconciliation list. ALLERGIES The patient is allergic to Ambien, amoxicillin, and Avapro. PHYSICAL EXAM General: Revealed a 67-year-old white male who appears appropriate for his age. Examination of head, neck, chest, heart is unremarkable. Abdomen: Benign, bowel sounds present. Suprapubically, he is unremarkable, Charles catheter is in place. IMPRESSION History of urinary obstruction, worsening, inability to remove the Charles catheter. PLAN In general, considering the patient's symptoms, it would be advisable to keep the catheter in place until the patient has a full urologic workup for urinary obstruction and retention. Right now, we will check the presence and location of the balloon via ultrasound and we will try to deflate it. If this is not possible, we need to remove this catheter by puncturing the balloon and eventually insert a new one, as I believe that if the catheter is just removed, the patient will probably go into urinary retention right away. MD Alvaro MCLAIN 03/28/2018 23:06 [id number] T 03/28/2018 23:43 SG/MODL Electronically Signed By Irving Pacheco M.D. on 02 Apr 2018 14:36:42 GMT CONSULTATION Observed: 03/30/2018 Status: F Source: [facility] 10:11 PM [facility] REPOSITORY [facility] [address] [place] [address] NAME ANGELINA GIMENEZ [facility] [id number] 1950 DATE 03/30/2018 PROGRESS NOTE PROGRESS NOTE The ultrasound exam of the pelvis with the Charles balloon inflated and deflated was obtained today. This test has proven that there are no issues with possible removal of the Charles catheter. Earlier, it was felt by the hospitalist that the catheter could not be pulled out. I explained to the patient that based on his significant obstructive voiding symptoms prior to this admission, as well as the fact that after the Charles catheter was inserted his creatinine, which initially was abnormal, came down to the normal range. All of this is suggestive of significant urinary obstruction. I explained to the patient that he would need to have a full workup for this condition. My recommendation is not to remove the Charles catheter because he can soon go back in urinary retention. I also explained to him that his insurance would not allow him to come to our office, as we are out of network. My recommendation is to contact his insurance company and ask to be set up with in-network urologist for further evaluation of urinary obstruction. I told him that the Charles catheter can stay in and needs to be changed in about 4 weeks. However, if he is not already established with a urologist, home health care can change the Charles catheter at home. MD Alvaro MCLAIN 03/30/2018 22:11 [id number] T 03/30/2018 22:46 SG/MODL Electronically Signed By Irving Pacheco M.D. on 02 Apr 2018 14:36:44 GMT US PELVIS LMTD OR Observed: 03/30/2018 Status: F Source: [facility] FLWUP (NON-OB) 10:42 AM [facility] Final Report Accession No: [id number] Performed: Mar 30 2018 10:42AM Examination: US PELVIS LMTD OR FLWUP (NON-OB) US PELVIS LMTD OR FLWUP (NON-OB) CLINICAL STATEMENT: Unable to remove the Charles catheter. COMPARISON: None. TECHNIQUE: Ultrasound of the urinary bladder. FINDINGS: Urinary bladder is nondistended. Charles catheter is present with the inflated balloon within the bladder lumen. The balloon appears to deflate completely. Subsequently, the balloon was reinflated. IMPRESSION: The bladder is nondistended. The balloon of the Charles catheter is present within the bladder lumen. The balloon completely deflated. Subsequently, the balloon was reinflated. Interpreting Physician: PB GONZALES D.O. Trans: nicoleyers : cc: CHEMG (BASIC METABOLIC Collected: 03/30/2018 Status: F Source: [facility] AND ) 4:45 AM [facility] REPOSITORY TYPE CODE TESTS RESULT OUT OF REFERENCE UNITS RANGE LAB GLU 70-99 mg/dL High Glucose 106 Result Comment: This test result might be falsely depressed or falsely elevated on samples drawn from patients taking Sulfasalazine and Sulfapyridine. Venipuncture should occur prior to taking either of these drugs. LAB BUN 8-25 mg/dL BUN 21 LAB CREA 0.80-1.30 mg/dL Creatinine 1.14 LAB eGFR ml/min/1.73sq .m eGFR,NonAfrican-Am erican >=60 Result Comment: Non- GFR Calc eGFR is an estimated Glomerular Filtration Rate based on the value of the patient's serum creatinine. In outpatients, eGFR should be used as a helpful tool in screening for CKD. In inpatients or patients with acute renal failure, eGFR represents the GFR at the moment of the draw and should be used with caution. LAB eGFRB ml/min/1.73sq.m eGFR, -Swedish >=60 Result Comment: GFR Calc LAB CALCM 8.4-10.2 mg/dL Calcium 8.5 LAB NA 135-145 mmol/L Sodium 138 LAB K 3.5-5.1 mmol/L Potassium 3.7 LAB CL 98-108 mmol/L Chloride 102 LAB CO2 21-32 mmol/L CO2 29 LAB MG 1.6-2.4 mg/dL Magnesium 1.9 Performed By: #### CHEMG #### Unless otherwise noted, all testing performed by [place] [address] CLIA: [id number] Lpc: Patrice Bedoya M.D. OCCULT BLD STOOL-DIAG,IMMUNO Collected: Status: F Source: [facility] 03/29/2018 4:39 PM [facility] TYPE CODE TESTS RESULT OUT OF RANGE REFERENCE UNITS LAB OCCIMDG Negative Abnormal Occult Positive Bld Stool-Diag,I mmuno Result Comment: Rapid test procedural control acceptable. Performed By: #### OCCIMDG #### Unless otherwise noted, all testing performed by [place] [address] CLIA: [id number] Lpc: Ton Berry Observed: 03/29/2018 Status: F Source: [facility] 7:24 AM [facility] REPOSITORY Final Report Accession No: [id number] Performed: Mar 29 2018 7:24AM Examination: LEFT KUB KUB LEFT CLINICAL STATEMENT: Left ureter stone. TECHNIQUE: 3 KUB images are evaluated. FINDINGS: No signs of pneumoperitoneum or bowel obstruction identified. There are branching calcifications projecting over the kidneys bilaterally likely representing segmental renal artery atherosclerotic calcifications. No certain calcifications in the region of the collecting structures, or ureter ranges are identified. I do not identify certain bladder calcification. Aortoiliac atherosclerosis and stent placements bilaterally are noted. IMPRESSION: No KUB evidence of urinary calculus. Note made of extensive atherosclerosis including segmental intrarenal branch atherosclerotic calcifications bilaterally. There is extensive aortoiliac atherosclerosis, with the appearance of bilateral arterial stents. No bowel obstruction or sign of pneumoperitoneum identified. Interpreting Physician: KAI CRESPO D.O. Trans: mad : cc: CBC WITH DIFF Collected: 03/29/2018 Status: F Source: [facility] 4:33 AM [facility] REPOSITORY TYPE CODE TESTS RESULT OUT OF RANGE REFERENCE UNITS LAB WBC 3.6-10.4 K/mcL WBC Normal 9.1 LAB RBC 4.0-5.5 M/mcL Low RBC 2.56 LAB HGB 12.9-16.9 g/dL Low Hemoglobin 8.4 LAB HCT 37.9-49.2 % Low Hematocrit 25.1 LAB MCV 82.8-99.3 FL MCV Normal 98.2 LAB MCH 27.7-34.6 pg MCH Normal 32.8 LAB MCHC 32.9-35.5 g/dL MCHC Normal 33.4 LAB PLT 139-354 K/mcL Platelet Normal Count 214 LAB NEUT# 1.4-6.8 K/mcL Normal Neutrophil # 6.3 LAB LYMPH# 0.9-3.6 K/mcL Normal Lymphocyte # 1.6 LAB MONO# 0.2-0.6 K/mcL High Monocyte # 0.8 LAB EOS# 0-0.5 K/mcL Normal Eosinophil # 0.4 LAB BASO# 0-0.2 K/mcL Basophil Normal # 0.1 LAB SEGNEU% % Normal Segmented Neut % 68.7 LAB LYMP% % Normal Lymphocyte% 17.1 LAB MO% % Monocyte Normal % 8.8 LAB EO% % Normal Eosinophil % 4.5 LAB BA% % Basophil Normal % 0.9 LAB RDW 10-14.3 % High RDW 19.7 Result Comment: Smear reviewed for RBC morphology. LAB MPV 6.6-10.8 FL Normal MPV 6.8 Result Comment: Smear reviewed to evaluate platelet count and morphology. LAB ANISO None Seen Abnormal Anisocytosis 1+ Performed By: #### CBCDIF, CHEMG #### Unless otherwise noted, all testing performed by [address] [place] [address] CLIA: [id number] Lpc: Ton Berry (BASIC METABOLIC Collected: 03/29/2018 Status: F Source: [facility]) 4:33 AM [facility] REPOSITORY TYPE CODE TESTS RESULT OUT OF REFERENCE UNITS RANGE LAB GLU 70-99 mg/dL High Glucose 104 Result Comment: This test result might be falsely depressed or falsely elevated on samples drawn from patients taking Sulfasalazine and Sulfapyridine. Venipuncture should occur prior to taking either of these drugs. LAB BUN 8-25 mg/dL BUN 24 LAB CREA 0.80-1.30 mg/dL Creatinine 1.18 LAB eGFR ml/min/1.73sq .m eGFR,NonAfrican-Am erican >=60 Result Comment: Non- GFR Calc eGFR is an estimated Glomerular Filtration Rate based on the value of the patient's serum creatinine. In outpatients, eGFR should be used as a helpful tool in screening for CKD. In inpatients or patients with acute renal failure, eGFR represents the GFR at the moment of the draw and should be used with caution. LAB eGFRB ml/min/1.73sq.m eGFR, -Swedish >=60 Result Comment: GFR Calc LAB CALCM 8.4-10.2 mg/dL Calcium Low 8.3 LAB NA 135-145 mmol/L Sodium 138 LAB K 3.5-5.1 mmol/L Potassium 3.8 LAB CL 98-108 mmol/L Chloride 104 LAB CO2 21-32 mmol/L CO2 30 LAB MG 1.6-2.4 mg/dL Magnesium 2.0 Performed By: #### CBCDIF, CHEMG #### Unless otherwise noted, all testing performed by [address] [place] [address] CLIA: [id number] Lpc: Ton Berry (BASIC METABOLIC Collected: 03/28/2018 Status: F [facility]) 4:16 AM [facility] REPOSITORY TYPE CODE TESTS RESULT OUT OF REFERENCE UNITS RANGE LAB GLU 70-99 mg/dL High Glucose 102 Result Comment: This test result might be falsely depressed or falsely elevated on samples drawn from patients taking Sulfasalazine and Sulfapyridine. Venipuncture should occur prior to taking either of these drugs. LAB BUN 8-25 mg/dL BUN High 31 LAB CREA 0.80-1.30 mg/dL Creatinine High 1.34 LAB eGFR >60 ml/min/1.73s Low q.m eGFR,NonAfrican-Am erican 53 Result Comment: Non- GFR Calc eGFR is an estimated Glomerular Filtration Rate based on the value of the patient's serum creatinine. In outpatients, eGFR should be used as a helpful tool in screening for CKD. In inpatients or patients with acute renal failure, eGFR represents the GFR at the moment of the draw and should be used with caution. LAB eGFRB ml/min/1.73sq.m eGFR, -Swedish >=60 Result Comment: GFR Calc LAB CALCM 8.4-10.2 mg/dL Calcium Low 8.3 LAB NA 135-145 mmol/L Sodium 139 LAB K 3.5-5.1 mmol/L Potassium 3.8 LAB CL 98-108 mmol/L Chloride 105 LAB CO2 21-32 mmol/L CO2 30 LAB MG 1.6-2.4 mg/dL Magnesium 1.9 Performed By: #### CHEMG #### Unless otherwise noted, all testing performed by [address] [address] CLIA: [id number] Lpc: Ton Berry (BASIC METABOLIC Collected: 03/27/2018 Status: F Source: [facility]) 5:34 AM [facility] REPOSITORY TYPE CODE TESTS RESULT OUT OF REFERENCE UNITS RANGE LAB GLU 70-99 mg/dL High Glucose 102 Result Comment: This test result might be falsely depressed or falsely elevated on samples drawn from patients taking Sulfasalazine and Sulfapyridine. Venipuncture should occur prior to taking either of these drugs. LAB BUN 8-25 mg/dL BUN High 41 LAB CREA 0.80-1.30 mg/dL Creatinine High 1.34 LAB eGFR >60 ml/min/1.73s Low q.m eGFR,NonAfrican-Am erican 53 Result Comment: Non- GFR Calc eGFR is an estimated Glomerular Filtration Rate based on the value of the patient's serum creatinine. In outpatients, eGFR should be used as a helpful tool in screening for CKD. In inpatients or patients with acute renal failure, eGFR represents the GFR at the moment of the draw and should be used with caution. LAB eGFRB ml/min/1.73sq.m eGFR, -Swedish >=60 Result Comment: GFR Calc LAB CALCM 8.4-10.2 mg/dL Calcium 8.6 LAB NA 135-145 mmol/L Sodium 140 LAB K 3.5-5.1 mmol/L Potassium 3.8 LAB CL 98-108 mmol/L Chloride 107 LAB CO2 21-32 mmol/L CO2 28 LAB MG 1.6-2.4 mg/dL Magnesium 2.2 Performed By: #### CHEMG #### Unless otherwise noted, all testing performed by [facility] [place] [address] [address] [place], [place] [address] CLIA: [id number] Lpc: Patrice Bedoya M.D. CHEMG (BASIC METABOLIC Collected: 03/26/2018 Status: F Source: [facility] AND ) 4:28 AM [facility] REPOSITORY TYPE CODE TESTS RESULT OUT OF REFERENCE UNITS RANGE LAB GLU 70-99 mg/dL High Glucose 108 Result Comment: This test result might be falsely depressed or falsely elevated on samples drawn from patients taking Sulfasalazine and Sulfapyridine. Venipuncture should occur prior to taking either of these drugs. LAB BUN 8-25 mg/dL BUN High 66 LAB CREA 0.80-1.30 mg/dL Creatinine High 1.86 LAB eGFR >60 ml/min/1.73s Low q.m eGFR,NonAfrican-Am erican 36 Result Comment: Non- GFR Calc eGFR is an estimated Glomerular Filtration Rate based on the value of the patient's serum creatinine. In outpatients, eGFR should be used as a helpful tool in screening for CKD. In inpatients or patients with acute renal failure, eGFR represents the GFR at the moment of the draw and should be used with caution. LAB eGFRB >60 ml/min/1.73sq.m eGFR, -Swedish Low 44 Result Comment: GFR Calc LAB CALCM 8.4-10.2 mg/dL Low Calcium 8.0 LAB NA 135-145 mmol/L Sodium 141 LAB K 3.5-5.1 mmol/L Potassium 3.8 LAB CL 98-108 mmol/L Chloride 108 LAB CO2 21-32 mmol/L CO2 25 LAB MG 1.6-2.4 mg/dL High Magnesium 2.9 Performed By: #### CHEMG #### Unless otherwise noted, all testing performed by [place] [address] [address] [place], [place] [address] CLIA: [id number] Lpc: Ton Berry (BASIC METABOLIC Collected: 03/25/2018 Status: F Source: [facility]) 8:31 AM [facility] REPOSITORY TYPE CODE TESTS RESULT OUT OF REFERENCE UNITS RANGE LAB GLU 70-99 mg/dL High Glucose 101 Result Comment: This test result might be falsely depressed or falsely elevated on samples drawn from patients taking Sulfasalazine and Sulfapyridine. Venipuncture should occur prior to taking either of these drugs. LAB BUN 8-25 mg/dL BUN High 83 LAB CREA 0.80-1.30 mg/dL Creatinine High 2.50 LAB eGFR >60 ml/min/1.73s Low q.m eGFR,NonAfrican-Am erican 26 Result Comment: Non- GFR Calc eGFR is an estimated Glomerular Filtration Rate based on the value of the patient's serum creatinine. In outpatients, eGFR should be used as a helpful tool in screening for CKD. In inpatients or patients with acute renal failure, eGFR represents the GFR at the moment of the draw and should be used with caution. LAB eGFRB >60 ml/min/1.73sq.m eGFR, -Swedish Low 31 Result Comment: GFR Calc LAB CALCM 8.4-10.2 mg/dL Low Calcium 8.0 LAB NA 135-145 mmol/L Sodium 138 LAB K 3.5-5.1 mmol/L Potassium 3.6 LAB CL 98-108 mmol/L Chloride 104 LAB CO2 21-32 mmol/L CO2 21 LAB MG 1.6-2.4 mg/dL High Magnesium 3.0 Performed By: #### CHEMG #### Unless otherwise noted, all testing performed by [facility]. [place], [place] [address] CLIA: [id number] Lpc: Patrice Bedoya M.D. CBC WITH DIFF Collected: 03/24/2018 Status: F Source: [facility] 4:45 AM [facility] REPOSITORY TYPE CODE TESTS RESULT OUT OF RANGE REFERENCE UNITS LAB WBC 3.6-10.4 K/mcL WBC Normal 8.3 LAB RBC 4.0-5.5 M/mcL Low RBC 2.66 LAB HGB 12.9-16.9 g/dL Low Hemoglobin 8.4 LAB HCT 37.9-49.2 % Low Hematocrit 26.0 LAB MCV 82.8-99.3 FL MCV Normal 97.7 LAB MCH 27.7-34.6 pg MCH Normal 31.7 LAB MCHC 32.9-35.5 g/dL Low MCHC 32.4 LAB RDW 10-14.3 % High RDW 21.7 LAB PLT 139-354 K/mcL Platelet Normal Count 198 LAB MPV 6.6-10.8 FL MPV Normal 7.3 LAB NEUT# 1.4-6.8 K/mcL Normal Neutrophil # 6.0 LAB LYMPH# 0.9-3.6 K/mcL Normal Lymphocyte # 1.1 LAB MONO# 0.2-0.6 K/mcL High Monocyte # 0.9 LAB EOS# 0-0.5 K/mcL Normal Eosinophil # 0.2 LAB BASO# 0-0.2 K/mcL Basophil Normal # 0.1 LAB SEGNEU% % Normal Segmented Neut % 72.7 Result Comment: Smear reviewed to verify automated differential> LAB LYMP% % Normal Lymphocyte% 13.1 LAB MO% % Normal Monocyte % 11.0 LAB EO% % Normal Eosinophil % 2.5 LAB BA% % Normal Basophil % 0.7 LAB ANISO None Seen Abnormal Anisocytosis 2+ Result Comment: Smear reviewed for RBC morphology. LAB POLYCHR None Seen Abnormal Polychromasia 1+ Performed By: #### TFERR, [id number], CHEMG, CBCDIF, IRON, FERR #### Unless otherwise noted, all testing performed by [address] [place] [address] CLIA: [id number] Lpc: Patrice Bedoya M.D. CHEMG (BASIC METABOLIC Collected: 03/24/2018 Status: F Source: [facility]) 4:45 AM [facility] REPOSITORY TYPE CODE TESTS RESULT OUT OF RANGE REFERENCE UNITS LAB GLU 70-99 mg/dL Normal Glucose 97 Result Comment: This test result might be falsely depressed or falsely elevated on samples drawn from patients taking Sulfasalazine and Sulfapyridine. Venipuncture should occur prior to taking either of these drugs. LAB BUN 8-25 mg/dL BUN High 96 LAB CREA 0.80-1.30 mg/dL Creatinine High 4.05 LAB eGFR >60 ml/min/1.73s Low q.m eGFR,NonAfrican-Am erican 15 Result Comment: Non- GFR Calc eGFR is an estimated Glomerular Filtration Rate based on the value of the patient's serum creatinine. In outpatients, eGFR should be used as a helpful tool in screening for CKD. In inpatients or patients with acute renal failure, eGFR represents the GFR at the moment of the draw and should be used with caution. LAB eGFRB >60 ml/min/1.73sq.m eGFR, -Swedish Low 18 Result Comment: GFR Calc LAB CALCM 8.4-10.2 mg/dL Low Calcium 7.7 LAB NA 135-145 mmol/L Low Sodium 132 LAB K 3.5-5.1 mmol/L Normal Potassium 4.1 LAB CL 98-108 mmol/L Chloride Normal 98 LAB CO2 21-32 mmol/L CO2 Normal 22 LAB MG 1.6-2.4 mg/dL High Magnesium 3.3 Performed By: #### TFERR, [id number], CHEMG, CBCDIF, IRON, FERR #### Unless otherwise noted, all testing performed by [address] [place] [address] CLIA: [id number] Lpc: Patrice Bedoya M.D. FERRITIN Collected: 03/24/2018 Status: F Source: [facility] 4:45 AM [facility] TYPE CODE TESTS RESULT OUT OF RANGE REFERENCE UNITS LAB FERR 30-400 ng/mL Normal Ferritin 60 Result Comment: Samples from patients routinely receiving high dose biotin therapy (100-300 mg/day) may show falsely decreased results. Please correlate clinically. Performed By: #### TFERR, [id number], CHEMG, CBCDIF, IRON, FERR #### Unless otherwise noted, all testing performed by [place] [address] CLIA: [id number] Lpc: Patrice Bedoya M.D. IRON, TOTAL Collected: 03/24/2018 Status: F Source: [facility] 4:45 AM [facility] REPOSITORY TYPE CODE TESTS RESULT OUT OF RANGE REFERENCE UNITS LAB IRON 65-175 mcg/dL High Iron, 184 Total Performed By: #### TFERR, [id number], CHEMG, CBCDIF, IRON, FERR #### Unless otherwise noted, all testing performed by [place] [address] CLIA: [id number] Lpc: Patrice Bedoya M.D. TRANSFERRIN Collected: 03/24/2018 Status: F Source: [facility] 4:45 AM [facility] REPOSITORY TYPE CODE TESTS RESULT OUT OF REFERENCE UNITS RANGE LAB TFERR 212.0-360.0 mg/dL Low Transferrin 195.0 Performed By: #### TFERR, [id number], CHEMG, CBCDIF, IRON, FERR #### Unless otherwise noted, all testing performed by [place] [address] CLIA: [id number] Lpc: Patrice Bedoya M.D. VITAMIN B12 AND Collected: 03/24/2018 Status: F Source: [facility] FOLATES 4:45 AM [facility] REPOSITORY TYPE CODE TESTS RESULT OUT OF RANGE REFERENCE UNITS LAB VITB12 193-986 pg/mL Normal Vitamin B12 506 LAB FOLATE 3.1-17.5 ng/mL High Folate > 20.0 Performed By: #### TFERR, [id number], CHEMG, CBCDIF, IRON, FERR #### Unless otherwise noted, all testing performed by [address] [place] [id number] CLIA: [id number] Lpc: Patrice Bedoya M.D. CONSULTATION Observed: 03/23/2018 Status: F Source: [facility] 11:59 AM [facility] REPOSITORY [address] [place] [address] NAME ANGELINA GIMENEZ [facility] [id number] DATE CONSULTATION LEATHER CRAFTSMAN [place] JETER MD REFERRING PHYSICIAN: Dr. Hand NEPHROLOGY CONSULTATION REASON FOR CONSULTATION Acute kidney injury. HISTORY OF PRESENT ILLNESS This is a very pleasant, 67-year-old gentleman with hypertension, coronary artery disease status post CABG, heart failure with EF more than 65%, diabetes mellitus type 2 who was discharged from the hospital just a few days ago when he was admitted with a creatinine of 2.3 due to hemodynamic changes from combination of ARB and diuretic. His creatinine trended down back to baseline with holding the diuretics and the ARB. When he was discharged on Tuesday, he was near euvolemic; he was instructed to restart his diuretics at a lower dose 3 days after discharge. He presented to the hospital yesterday with significant lower extremity edema as well as significant weight gain and found to have a creatinine of 4.5, BUN of 79, sodium of 123, potassium of 5.4. He denies liberal fluid intake, but I suspect that he has had significant dietary indiscretion. He denies chest pain. He does report shortness of breath and generalized malaise. His weight on admission was 94 and 3 or 4 days ago he was 90 kg. His weight on previous admission was 89 kg. PAST MEDICAL HISTORY 1. Chronic kidney disease stage 3 with baseline creatinine 1.6 to 2 mg/dL. 2. Hypertension. 3. Heart failure with preserved ejection fraction. 4. Coronary artery disease status post CABG. 5. COPD. 6. Alcohol abuse. 7. Microvascular disease. 8. CVA. PAST SURGICAL HISTORY CABG, cardiac stents x2. FAMILY HISTORY Negative for kidney disease or anyone requiring hemodialysis. SOCIAL HISTORY Patient is , lives with his , [id number] smoking history as well as regular alcohol use. Denies illicit drug use. ALLERGIES Amoxicillin and Avapro. MEDICATIONS Home medications reviewed, they include: Bumex 1 mg every other day, Clopidogrel/hydralazine 25 three times a day, losartan 50 once a day, metoprolol 100 once a day, ropinirole, tamsulosin. Hospital medications reviewed, they include: Metoprolol 100 once a day, hydralazine 25 three times a day, iron, atorvastatin, clopidogrel, Kayexalate, Bumex 1 mg IV twice a day. REVIEW OF SYSTEMS A 12-point review of systems conducted, negative except as mentioned in the history of present illness. PHYSICAL EXAMINATION Vital Signs: Blood pressure is 130s over 70s. Heart rate is 60, temperature 97.8, respiratory rate is 18. He is 98% on 3 L oxygen. General: He is in no acute distress. He is alert, awake, oriented x3. HEENT: Moist mucous membranes. Neck: JVD to the level of the mandible. Chest: With coarse bilateral crackles. Generalized abdominal fullness. Heart: S1, S2 is regular. Abdomen: Distended. Abdominal wall edema. Hypoactive bowel sounds. Extremities: 2+ lower extremity edema. Genitalia: Scrotal edema. LAB DATA Sodium is 123, potassium 5.4, chloride 92, bicarb 21, BUN 79, creatinine 4.5, ionized calcium is 1.1. Lactic acid is 1.1. Hemoglobin is 7.8, white count 14, platelets of 201. UA shows 18 hyaline casts. Chest x-ray is showing focal blunting of left costophrenic angle. Mild cardiomegaly. ABG shows pH of 7.37, pCO2 of 34. IMPRESSION 1. Hyponatremia. 2. Hyperkalemia. 3. Acute kidney injury. 4. Chronic kidney disease stage 3 with baseline creatinine 1.7 to 2.1 mg/dL. 5. Decompensated heart failure, preserved ejection fraction. 6. Anemia. 7. Hypertension. DISCUSSION This is a 67-year-old gentleman with acute kidney injury, likely from decompensated heart failure due to dietary indiscretion as well as florid alcohol abuse. The finding of hyaline casts in his UA suggests renal hypoperfusion rather than true hypovolemia. I have discontinued his IV bolus Bumex and changed him to Bumex 1 mg/hour drip. If no meaningful improvement in his urine output and volume status, then we will need to be started on hemodialysis tomorrow for volume management. His hyponatremia is from hypervolemia from decompensated heart failure as well as from alcohol abuse. I expect for him to improve with diuretics. He has normal baseline sodium. His hyperkalemia is from losartan and acute kidney injury. Agree with Kayexalate. Expect potassium to improve with diuretics. His blood pressures are acceptable. We will stop losartan due to acute kidney injury. Advised and reinforced compliance with fluid restriction and alcohol cessation. He does understand that he may need hemodialysis as early as tomorrow for volume management. He reluctantly agrees to the plan. Recommendations discussed at length with the hospitalist. Thank you for involving us in the consultation of this patient. Please feel free to call with any questions. MD Alvaro SHEIKH 03/23/2018 11:59 [id number] T 03/23/2018 12:20 SSA/MODL Electronically Signed By Israel Jeter on 23 Mar 2018 16:33:52 GMT HEMOGLOBIN Collected: 03/23/2018 Status: F Source: [facility] 11:31 AM [facility] REPOSITORY TYPE CODE TESTS RESULT OUT OF REFERENCE UNITS RANGE LAB HGB 12.9-16.9 g/dL Low Hemoglobin 8.5 Performed By: #### HCT, HGB #### Unless otherwise noted, all testing performed by [facility]. [place], [place] [address] CLIA: [id number] Lpc: Patrice Bedoya M.D. HEMATOCRIT Collected: 03/23/2018 Status: F Source: [facility] 11:31 AM [facility] REPOSITORY TYPE CODE TESTS RESULT OUT OF REFERENCE UNITS RANGE LAB HCT 37.9-49.2 % Low Hematocrit 26.2 Performed By: #### HCT, HGB #### Unless otherwise noted, all testing performed by [place] [address] CLIA: [id number] Lpc: Patrice Bedoya M.D. URINALYSIS, ROUTINE Collected: 03/23/2018 Status: F Source: [facility] 8:40 AM [facility] REPOSITORY TYPE CODE TESTS RESULT OUT OF RANGE REFERENCE UNITS LAB COLOR Normal Color, Urine Yellow LAB CHAUR Normal Character Clear LAB SPGRUR 1.003-1.029 Normal Specific 1.010 [place],Urine LAB PHUR 4.5-8.0 Normal pH,Urine 5.0 LAB GLUCUR NEG;NEGATIVE mg/dL Normal Glucose,Urine Negative LAB KETUR NEG;NEGATIVE mg/dL Normal Ketone,Urine Negative LAB PROTUR NEG;NEGATIVE mg/dL Normal Protein,Urine Negative LAB BLDUR NEG;NEGATIVE Normal Blood,Urine Negative LAB NITUR NEG;NEGATIVE Normal Nitrite,Urine Negative LAB BILIUR NEG;NEGATIVE Normal Bilirubin,Urine Negative LAB UROUR <2 mg/dL Normal Urobilinogen,Ur < 2.0 ine LAB LEUESTUR Negative Normal Leuk.Esterase,U Negative rine LAB WBCUR 0-5 /HPF Normal WBC,Urine 3 LAB RBCUR 0-5 /HPF Normal RBC,Urine 4 LAB SQEPI 0-40 /HPF Normal Squamous 1 Epithelial LAB CASTHY 0-5 /LPF High Cast, Hyaline 18 LAB SPERMUR None Seen /HPF Abnormal Sperm, Urine Present Performed By: #### UA #### Unless otherwise noted, all testing performed by [place] [address] CLIA: [id number] Lpc: Patrice Bedoya M.D. Observed: 03/23/2018 Status: F Source: [facility] CULTURE, URINE 8:40 AM [facility] REPOSITORY Test Name: Culture, Urine Culture Status: Final Culture Report: No Growth - Day 2 Micro Source: Urine Performed By: #### URCUL #### Unless otherwise noted, all testing performed by [place] [address] CLIA: [id number] Lpc: Patrice Bedoya M.D. PROTIME Collected: 03/23/2018 Status: F Source: [facility] 1:32 AM [facility] TYPE CODE TESTS RESULT OUT OF RANGE REFERENCE UNITS LAB PT. 11.8-14.3 Seconds Normal Protime 12.2 LAB INR Normal INR 0.93 Result Comment: The [place] [employer] recommended therapeutic range for Warfarin (Coumadin) therapy goals: PROPHYLAXIS/TREATMENT of: INR Venous Thrombosis, Pulmonary Embolism 2.0-3.0 Prevention of VTE (Orthopedic Surgery) 2.0-3.0 Atrial Fibrillation 2.0-3.0 Myocardial Infarction 2.0-3.0 Mechanical Prosthetic Heart Valves (Aortic position) 2.0-3.0 Mechanical Prosthetic Heart Valves (Mitral Position) 2.5-3.5 [place] [employer] evidence-based clinical practice guidelines. CHEST. 2012 (9th ed) Performed By: #### PTT, PT #### Unless otherwise noted, all testing performed by [place] [address] CLIA: [id number] Lpc: Patrice Bedoya M.D. PARTIAL THROMBOPLASTIN Collected: 03/23/2018 Status: F Source: [facility] TIME 1:32 AM [facility] TYPE CODE TESTS RESULT OUT OF REFERENCE UNITS RANGE LAB PTT 23.0-34.0 Seconds Partial Normal Thromboplastin Time 23 Result Comment: Suggested therapeutic range for PTT is 68-104 sec. Performed By: #### PTT, PT #### Unless otherwise noted, all testing performed by [place] [address] CLIA: [id number] Lpc: Patrice Bedoya M.D. CHEST (ONE VIEW Observed: 03/23/2018 Status: F Source: [facility] ONLY) 1:23 AM [facility] Final Report Accession No: [id number] Performed: Mar 23 2018 1:23AM Examination: CHEST (ONE VIEW ONLY) CHEST (ONE VIEW ONLY) 03/23/2018 1:23 AM CLINICAL INDICATION: Shortness of breath, bilateral leg pain and edema. COMPARISON: Chest radiograph 03/16/2018. TECHNIQUE: A single portable AP upright radiograph of the chest was obtained. FINDINGS: EKG leads project over the patient. There are median sternotomy wires and multiple mediastinal surgical clips likely from coronary artery bypass graft. There are atherosclerotic calcifications of the aortic arch. The heart is enlarged. The pulmonary vascularity is within normal limits. There is blunting of the left costophrenic angle which may be due to a trace left pleural effusion versus atelectasis. Otherwise, the lungs are clear without focal airspace consolidation. There is no right pleural effusion. There is no pneumothorax. The bones are unchanged. IMPRESSION: 1. Focal blunting of the left costophrenic angle which may be due to a trace left pleural effusion versus adjacent subsegmental atelectasis. Otherwise clear lungs. 2. Mild cardiomegaly. 3. Evidence of prior coronary artery bypass graft. Interpreting Physician: ROMERO FAUSTIN M.D. Trans: jwheel : cc: EXCEPTION NOTICE Collected: 03/23/2018 Status: F Source: [facility] 1:17 AM [facility] REPOSITORY TYPE CODE TESTS RESULT OUT OF RANGE REFERENCE UNITS LAB EXCEP Normal Exception PT, PTT Notice TUBE OVERFILLED. PT. TO BE REDRAWN. Performed By: #### EXCEP #### Unless otherwise noted, all testing performed by [address] [place], [place] [address] CLIA: [id number] Lpc: Patrice Bedoya M.D. ISTAT PEDIATRIC PANEL Collected: 03/23/2018 Status: F Source: [facility] 12:58 AM [facility] REPOSITORY TYPE CODE TESTS RESULT OUT OF REFERENCE UNITS RANGE LAB GLU 70-99 mg/dL Glucose High 109 LAB BUN 8-26 mg/dL BUN High 79 LAB CREA 0.80-1.30 mg/dL High Creatinine 4.5 LAB NA 136-141 mmol/L Low Sodium 123 LAB K 3.5-4.9 mmol/L High Potassium 5.4 LAB CL 98-109 mmol/L Low Chloride 92 LAB CO2 23-32 mmol/L Low CO2 21 LAB CAION 1.12-1.32 mmol/L Low Ionized Calcm 1.08 LAB HGB 12.0-17.0 g/dL Low Hemoglobin 7.8 LAB HCT 43.0-51.0 % Low Hematocrit 23 Performed By: #### ERPED #### Unless otherwise noted, all testing performed by [facility]. [place], [place] [address] CLIA: [id number] Lpc: Patrice Bedoya M.D. ARTERIAL BLOOD GAS Collected: 03/23/2018 Status: F Source: [facility] FULL PANEL 12:53 AM [facility] REPOSITORY TYPE CODE TESTS RESULT OUT OF REFERENCE UNITS RANGE LAB GLU 65-99 mg/dL High Glucose 109 Result Comment: Value above reference range LAB NA 135-145 mmol/L Low Sodium 122 Result Comment: Value below reference range LAB K 3.5-5.1 mmol/L High Potassium 5.2 LAB CL 98-108 mmol/L Low Chloride 92 Result Comment: Value below reference range LAB LA 0.6-2.0 mmol/L Lactic Acid 1.1 LAB CAION 1.12-1.32 mmol/L Low Ionized Calcm 1.09 Result Comment: Value below reference range LAB ipH 7.350-7.450 7.373 pH LAB iPCO2 35-45 mm Hg Low 34.9 PCO2 Result Comment: Value below reference range LAB iPO2 75-85 mm Hg Low Alert PO2 36.0 Result Comment: [id number] notified Abraham at 03/23/2018 12:57:00 AM Value below critical limit LAB iHCO3 22-26 mmol/L HCO3 Low 20.3 LAB Gunjan -2-2 mmol/L Base Excess Low -4.4 LAB O2HB 92-99 % O2 Low Hemoglobin 63.6 Result Comment: Value below reference range LAB AAGRAD mm Hg [id number] 115.1 LAB AARATIO % Aa Ratio 23.8 LAB O2CT mmol/L O2CT 3.4 LAB [id number] 92-99 % Hemoglobin O2 Sat. Low 65.7 Result Comment: Value below reference range LAB COHB % Carboxyhemoglobin 1.9 Result Comment: Suburban Non-Smoker <1.5% of total Hgb Smoker 1.5 - 5.0 % of total Hgb Heavy Smoker 5.0 - 9.0 % of total Hgb LAB METHB < 2.0 % Methemoglobin 1.3 LAB HHB 0.0-5.0 % DeOxyhemoglobin High (HHB) 33.2 LAB pHt 7.350-7. 450 pH (temp conv.) 7.373 LAB pCO2t 35.0-45. mm Hg 0 pCO2 (temp conv.) Low 34.9 LAB pO2t 75-85 mm Hg pO2 (temp conv.) Low Alert 36.0 LAB DRAWNBY Drawn By (Bld Gas) JDT LAB SITEABG Site (Bld Gas) RTRADIAL LAB THB 13.5-17. g/dL 5 Hemoglobin (Bld Gas) Low 8.5 LAB HCTABG 41-53 % Hematocrit (Bld Gas) Low 26.1 LAB [id number] O2 Device Nasal Cannula LAB FIO2 21-100 % FIO2 28.0 LAB LPM Liters per minute 2 LAB TEMPABG 36.0-38. Celsius 0 Temperature (Bld Gas) 37.0 LAB ALLENS Allens Test Positive LAB BGINST Blood Gas Instrument ;ED LAB CRITNBY Critical Res. - Notified By: [id number] LAB CRITNT Critical Res.-Time Notified 03/23/2018 12:57:00 AM LAB CRITNW Critical Res.- Person Notified Jarad LAB JASPERE Critical Result Note: Result Comment: Dr. Abraham notified of venous results states its ok to release value no need to re draw at this time Performed By: #### ABGPNL #### Unless otherwise noted, all testing performed by [address] [address] CLIA: [id number] Lpc: Patrice Bedoya M.D. Observed: 03/23/2018 Status: F Source: [facility] CULTURE, BLOOD 12:53 AM [facility] REPOSITORY Test Name: Culture, Blood Culture Status: Final Culture Report: No Growth - Day 5 Micro Source: BLOOD Performed By: #### BC #### Unless otherwise noted, all testing performed by [address] [address] CLIA: [id number] Lpc: Patrice Bedoya M.D. Observed: 03/23/2018 Status: F Source: [facility] CULTURE, BLOOD 12:53 AM [facility] REPOSITORY Test Name: Culture, Blood Culture Status: Final Culture Report: No Growth - Day 5 Micro Source: BLOOD Performed By: #### BC #### Unless otherwise noted, all testing performed by [address] [place], [place] [address] CLIA: [id number] Lpc: Patrice Bedoya M.D. CBC WITH DIFF Collected: 03/23/2018 Status: F Source: [facility] 12:52 AM [facility] REPOSITORY TYPE CODE TESTS RESULT OUT OF REFERENCE UNITS RANGE LAB WBC 3.6-10.4 K/mcL WBC High 14.0 LAB RBC 4.0-5.5 M/mcL Low RBC 2.70 LAB HGB 12.9-16.9 g/dL Low Hemoglobin 8.4 LAB HCT 37.9-49.2 % Low Hematocrit 26.8 LAB MCV 82.8-99.3 FL MCV 99.2 LAB MCH 27.7-34.6 pg MCH 31.3 LAB MCHC 32.9-35.5 g/dL Low MCHC 31.6 LAB RDW 10-14.3 % RDW High 21.8 LAB PLT 139-354 K/mcL Platelet Count 201 LAB MPV 6.6-10.8 FL MPV 7.3 LAB NEUT# 1.4-6.8 K/mcL High Neutrophil # 11.5 LAB LYMPH# 0.9-3.6 K/mcL Lymphocyte # 1.1 LAB MONO# 0.2-0.6 K/mcL Monocyte High # 1.2 LAB EOS# 0-0.5 K/mcL Eosinophil # 0.2 LAB BASO# 0-0.2 K/mcL Basophil # 0.0 LAB SEGNEU% % Segmented Neut % 81.8 Result Comment: Smear reviewed to verify automated differential> LAB LYMP% % Lymphocyte% 7.8 LAB MO% % Monocyte % 8.6 LAB EO% % Eosinophil % 1.6 LAB BA% % Basophil % 0.2 LAB ANISO None Seen Abnormal Anisocytosis 2+ LAB POLYCHR None Seen Abnormal Polychromasia 1+ Performed By: #### CBCDIF, NTPROBNP, EDCTNI, LIPASE, CMET #### Unless otherwise noted, all testing performed by [place] [address] CLIA: [id number] Lpc: Patrice Bedoya M.D. ED CARDIAC TROPONIN-I Collected: 03/23/2018 Status: F Source: [facility] 12:52 AM [facility] REPOSITORY TYPE CODE TESTS RESULT OUT OF RANGE REFERENCE UNITS LAB EDCTNI < 45 ng/L Normal ED Cardiac 34 Troponin-I Result Comment: Elevation of troponin indicates some degree of myocardial necrosis but unless there is a significant rise and/or fall (if elevated) identified, it unlikely that an acute event has taken place Samples from patients routinely receiving high dose biotin therapy (100-300 mg/day) may show falsely decreased results. Please correlate clinically. Performed By: #### CBCDIF, NTPROBNP, EDCTNI, LIPASE, CMET #### Unless otherwise noted, all testing performed by [place] [address] CLIA: [id number] Lpc: Patrice Bedoya M.D. NT-PRO BNP, SERUM Collected: 03/23/2018 Status: F Source: [facility] 12:52 [facility] REPOSITORY TYPE CODE TESTS RESULT OUT OF REFERENCE UNITS RANGE LAB NTPROBNP 0-125 pg/mL High [address] NT-Pro BNP, Serum Performed By: #### CBCDIF, NTPROBNP, EDCTNI, LIPASE, CMET #### Unless otherwise noted, all testing performed by [place] [address] CLIA: [id number] Lpc: Patrice Bedoya M.D. COMPREHENSIVE METABOLIC Collected: 03/23/2018 Status: F Source: [facility] 12:52 AM [facility] REPOSITORY TYPE CODE TESTS RESULT OUT OF REFERENCE UNITS RANGE LAB GLU 70-99 mg/dL High Glucose 115 Result Comment: This test result might be falsely depressed or falsely elevated on samples drawn from patients taking Sulfasalazine and Sulfapyridine. Venipuncture should occur prior to taking either of these drugs. LAB BUN 8-25 mg/dL BUN High 74 LAB CREA 0.80-1.30 mg/dL Creatinine High 4.17 LAB eGFR >60 ml/min/1.73s Low q.m eGFR,NonAfrican-Am erican 14 Result Comment: Non- GFR Calc eGFR is an estimated Glomerular Filtration Rate based on the value of the patient's serum creatinine. In outpatients, eGFR should be used as a helpful tool in screening for CKD. In inpatients or patients with acute renal failure, eGFR represents the GFR at the moment of the draw and should be used with caution. LAB eGFRB >60 ml/min/1.73sq.m eGFR, -Swedish Low 17 Result Comment: GFR Calc LAB CALCM 8.4-10.2 mg/dL Low Calcium 8.3 LAB NA 135-145 mmol/L Low Sodium 126 LAB K 3.5-5.1 mmol/L High Potassium 5.4 LAB CL 98-108 mmol/L Low Chloride 93 LAB CO2 21-32 mmol/L CO2 22 LAB AST 0-45 U/L AST (SGOT) 18 Result Comment: This test result might be falsely depressed or falsely elevated on samples drawn from patients taking Sulfasalazine and Sulfapyridine. Venipuncture should occur prior to taking either of these drugs. LAB ALT 14-65 U/L ALT (SGPT) 23 Result Comment: This test result might be falsely depressed or falsely elevated on samples drawn from patients taking Sulfasalazine and Sulfapyridine. Venipuncture should occur prior to taking either of these drugs. LAB ALKP 40-150 U/L Alkaline Phosphatase 57 LAB BILIT 0.3-1.2 mg/dL Bilirubin,Total 0.3 LAB PROT 6.0-8.0 g/dL Protein, Total Low 5.9 LAB ALB 3.2-5.2 g/dL Albumin Low 2.9 Performed By: #### CBCDIF, NTPROBNP, EDCTNI, LIPASE, CMET #### Unless otherwise noted, all testing performed by [place] [address] CLIA: [id number] Lpc: Patrice Bedoya M.D. LIPASE Collected: 03/23/2018 Status: F Source: [facility] 12:52 AM [facility] REPOSITORY TYPE CODE TESTS RESULT OUT OF RANGE REFERENCE UNITS LAB LIPASE 73-393 U/L Normal Lipase 270 Performed By: #### CBCDIF, NTPROBNP, EDCTNI, LIPASE, CMET #### Unless otherwise noted, all testing performed by [place] [address] CLIA: [id number] Lpc: Patrice Bedoya M.D. LACTIC ACID Collected: 03/23/2018 Status: F Source: [facility] 12:52 AM [facility] REPOSITORY TYPE CODE TESTS RESULT OUT OF RANGE REFERENCE UNITS LAB LA 0.6-2.0 mmol/L Normal Lactic Acid 1.5 Performed By: #### LA #### Unless otherwise noted, all testing performed by [place] [address] CLIA: [id number] Lpc: Patrice Bedoya M.D. RENAL FUNCTION PANEL Collected: 03/20/2018 Status: F Source: [facility] 6:21 AM [facility] REPOSITORY TYPE CODE TESTS RESULT OUT OF REFERENCE UNITS RANGE LAB GLU 70-99 mg/dL High Glucose 106 Result Comment: This test result might be falsely depressed or falsely elevated on samples drawn from patients taking Sulfasalazine and Sulfapyridine. Venipuncture should occur prior to taking either of these drugs. LAB BUN 8-25 mg/dL BUN High 52 LAB CREA 0.80-1.30 mg/dL Creatinine High 1.76 LAB eGFR >60 ml/min/1.73s Low q.m eGFR,NonAfrican-Am erican 39 Result Comment: Non- GFR Calc eGFR is an estimated Glomerular Filtration Rate based on the value of the patient's serum creatinine. In outpatients, eGFR should be used as a helpful tool in screening for CKD. In inpatients or patients with acute renal failure, eGFR represents the GFR at the moment of the draw and should be used with caution. LAB eGFRB >60 ml/min/1.73sq.m eGFR, -Swedish Low 47 Result Comment: GFR Calc LAB CALCM 8.4-10.2 mg/dL Calcium Low 8.3 LAB NA 135-145 mmol/L Sodium 135 LAB K 3.5-5.1 mmol/L Potassium 4.3 LAB CL 98-108 mmol/L Chloride 102 LAB CO2 21-32 mmol/L CO2 26 LAB ALB 3.2-5.2 g/dL Albumin Low 2.8 LAB PHOS 2.3-3.7 mg/dL Phosphorus 2.4 Performed By: #### CBCDIF, RENAL #### Unless otherwise noted, all testing performed by [facility] [address] [place], [place] [address] CLIA: [id number] Lpc: Patrice Bedoya M.D. CBC WITH DIFF Collected: 03/20/2018 Status: F Source: [facility] 6:21 AM [facility] REPOSITORY TYPE CODE TESTS RESULT OUT OF REFERENCE UNITS RANGE LAB WBC 3.6-10.4 K/mcL WBC High 10.6 LAB RBC 4.0-5.5 M/mcL RBC Low 2.84 LAB HGB 12.9-16.9 g/dL Hemoglobin Low 9.0 LAB HCT 37.9-49.2 % Hematocrit Low 27.8 LAB MCV 82.8-99.3 FL MCV 98.2 LAB MCH 27.7-34.6 pg MCH 31.8 LAB MCHC 32.9-35.5 g/dL MCHC Low 32.4 LAB RDW 10-14.3 % RDW High 22.0 LAB PLT 139-354 K/mcL Platelet Count 192 LAB MPV 6.6-10.8 FL MPV 7.4 LAB NEUT# 1.4-6.8 K/mcL Neutrophil # High 8.5 LAB LYMPH# 0.9-3.6 K/mcL Lymphocyte # 1.2 LAB MONO# 0.2-0.6 K/mcL Monocyte # High 0.8 LAB EOS# 0-0.5 K/mcL Eosinophil # 0.1 LAB BASO# 0-0.2 K/mcL Basophil # 0.0 LAB MYELO 0 % Myelocyte High 1.0 LAB META 0 % Metamyelocyte High 1.0 LAB SEGNEU% % Segmented Neut % 78.0 Result Comment: Manual differential performed. LAB LYMP% % Lymphocyte% 11.0 LAB MO% % Monocyte % 8.0 LAB EO% % Eosinophil % 1.0 LAB BA% % Basophil % 0.0 LAB ANISO None Seen Abnormal Anisocytosis 2+ LAB OVAL None Seen Abnormal Ovalcyte 1+ Performed By: #### CBCDIF, RENAL #### Unless otherwise noted, all testing performed by [place] [address] CLIA: [id number] Lpc: Patrice Bedoya M.D. PROTEIN PANEL, URINE Collected: 03/19/2018 Status: F Source: [facility] 3:00 PM [facility] REPOSITORY TYPE CODE TESTS RESULT OUT OF RANGE REFERENCE UNITS LAB CREAURR mg/dL Normal 90.70 Creatinine, Urine Random Result Comment: No established reference range. LAB PROTURR mg/dL Normal Protein, Urine Random 12.2 LAB PCRAT 0.0-0.2 Normal Protein Creatinine Ratio 0.14 Performed By: #### PROTURP #### Unless otherwise noted, all testing performed by [place] [address] CLIA: [id number] Lpc: Patrice Bedoya M.D. CBC WITH DIFF Collected: 03/19/2018 Status: F Source: [facility] 6:17 AM [facility] REPOSITORY TYPE CODE TESTS RESULT OUT OF RANGE REFERENCE UNITS LAB WBC 3.6-10.4 K/mcL WBC Normal 10.2 LAB RBC 4.0-5.5 M/mcL Low RBC 3.02 LAB HGB 12.9-16.9 g/dL Low Hemoglobin 9.6 LAB HCT 37.9-49.2 % Low Hematocrit 29.4 LAB MCV 82.8-99.3 FL MCV Normal 97.3 LAB MCH 27.7-34.6 pg MCH Normal 31.7 LAB MCHC 32.9-35.5 g/dL Low MCHC 32.5 LAB PLT 139-354 K/mcL Platelet Normal Count 207 LAB MPV 6.6-10.8 FL MPV Normal 7.7 LAB NEUT# 1.4-6.8 K/mcL High Neutrophil # 7.6 LAB LYMPH# 0.9-3.6 K/mcL Normal Lymphocyte # 1.3 LAB MONO# 0.2-0.6 K/mcL High Monocyte # 1.1 LAB EOS# 0-0.5 K/mcL Normal Eosinophil # 0.2 LAB BASO# 0-0.2 K/mcL Basophil Normal # 0.0 LAB SEGNEU% % Normal Segmented Neut % 74.4 LAB LYMP% % Normal Lymphocyte% 12.5 LAB MO% % Monocyte Normal % 10.8 LAB EO% % Normal Eosinophil % 1.9 LAB BA% % Basophil Normal % 0.4 LAB RDW 10-14.3 % High RDW 22.7 Result Comment: Smear reviewed for RBC morphology. LAB ANISO None Seen Abnormal Anisocytosis 2+ Performed By: #### RENAL, CBCDIF #### Unless otherwise noted, all testing performed by [facility] [address] [place], [place] [address] CLIA: [id number] Lpc: Patrice Bedoya M.D. RENAL FUNCTION PANEL Collected: 03/19/2018 Status: F Source: [facility] 6:17 AM [facility] REPOSITORY TYPE CODE TESTS RESULT OUT OF REFERENCE UNITS RANGE LAB GLU 70-99 mg/dL High Glucose 110 Result Comment: This test result might be falsely depressed or falsely elevated on samples drawn from patients taking Sulfasalazine and Sulfapyridine. Venipuncture should occur prior to taking either of these drugs. LAB BUN 8-25 mg/dL BUN High 69 LAB CREA 0.80-1.30 mg/dL Creatinine High 1.99 LAB eGFR >60 ml/min/1.73s Low q.m eGFR,NonAfrican-Am erican 34 Result Comment: Non- GFR Calc eGFR is an estimated Glomerular Filtration Rate based on the value of the patient's serum creatinine. In outpatients, eGFR should be used as a helpful tool in screening for CKD. In inpatients or patients with acute renal failure, eGFR represents the GFR at the moment of the draw and should be used with caution. LAB eGFRB >60 ml/min/1.73sq.m eGFR, -Swedish Low 41 Result Comment: GFR Calc LAB CALCM 8.4-10.2 mg/dL Calcium 8.4 LAB NA 135-145 mmol/L Sodium 136 LAB K 3.5-5.1 mmol/L Potassium 4.0 LAB CL 98-108 mmol/L Chloride 101 LAB CO2 21-32 mmol/L CO2 27 LAB ALB 3.2-5.2 g/dL Albumin Low 3.0 LAB PHOS 2.3-3.7 mg/dL Phosphorus 3.0 Performed By: #### RENAL, CBCDIF #### Unless otherwise noted, all testing performed by [facility] [address] [place], [place] [address] CLIA: [id number] Lpc: Patrice Bedoya M.D. US ABDOMEN LIMITED Observed: 03/18/2018 Status: F Source: [facility] 7:50 AM [facility] REPOSITORY Final Report Accession No: [id number] Performed: Mar 18 2018 7:50AM Examination: US ABDOMEN LIMITED US ABDOMEN LIMITED, 03/18/2018 7:50 AM CLINICAL STATEMENT: Right upper quadrant abdominal distention. COMPARISON: Ultrasound 03/17/2018. TECHNIQUE: Ultrasound imaging of the right upper quadrant performed. FINDINGS: The visualized portions of the pancreas within normal limits. Note that portions are obscured by shadowing. The liver measures approximately 6.5 cm in length. There is relatively homogeneous echotexture without focal lesion identified in this study. Gallbladder is nondistended. No wall thickening or pericholecystic fluid. No echogenic foci to suggest stones. Sonographic Rodriguez's sign is reportedly negative. The right kidney measures approximately 12.5 x 5.3 x 5.5 cm. No hydronephrosis. Vascular flow is noted to the kidney. No ascites identified in the right upper quadrant. IMPRESSION: No acute sonographic abnormality noted in the right upper quadrant. Interpreting Physician: EMILIANA GELLER M.D. Trans: apope : cc: CBC WITH DIFF Collected: 03/18/2018 Status: F Source: [facility] 7:21 AM [facility] REPOSITORY TYPE CODE TESTS RESULT OUT OF REFERENCE UNITS RANGE LAB WBC 3.6-10.4 K/mcL WBC High 10.8 LAB RBC 4.0-5.5 M/mcL Low RBC 3.16 LAB HGB 12.9-16.9 g/dL Low Hemoglobin 10.0 LAB HCT 37.9-49.2 % Low Hematocrit 30.6 LAB MCV 82.8-99.3 FL MCV 96.8 LAB MCH 27.7-34.6 pg MCH 31.6 LAB MCHC 32.9-35.5 g/dL Low MCHC 32.7 LAB PLT 139-354 K/mcL Platelet Count 208 LAB MPV 6.6-10.8 FL MPV 6.9 LAB NEUT# 1.4-6.8 K/mcL High Neutrophil # 7.9 LAB LYMPH# 0.9-3.6 K/mcL Lymphocyte # 1.5 LAB MONO# 0.2-0.6 K/mcL Monocyte High # 1.2 LAB EOS# 0-0.5 K/mcL Eosinophil # 0.1 LAB BASO# 0-0.2 K/mcL Basophil # 0.1 LAB SEGNEU% % Segmented Neut % 73.4 LAB LYMP% % Lymphocyte% 14.2 LAB MO% % Monocyte % 10.7 LAB EO% % Eosinophil % 1.1 LAB BA% % Basophil % 0.6 LAB RDW 10-14.3 % RDW High 23.2 Result Comment: Smear reviewed for RBC morphology. LAB ANISO None Seen Abnormal Anisocytosis 2+ LAB OVAL None Seen Abnormal Ovalcyte 1+ Performed By: #### RENAL, PTHI, HEPF, CBCDIF #### Unless otherwise noted, all testing performed by [facility] [address] [place], [place] [address] CLIA: [id number] Lpc: Patrice Bedoya M.D. PARATHYROID HORMONE Collected: 03/18/2018 Status: F Source: [facility] 7:21 AM [facility] REPOSITORY TYPE CODE TESTS RESULT OUT OF RANGE REFERENCE UNITS LAB PTHI 18.4-80.1 pg/mL Parathyroid Normal Hormone 26.9 Result Comment: Samples from patients routinely receiving high dose biotin therapy may show falsely depressed results. Additional information may be required for diagnosis. Performed By: #### RENAL, PTHI, HEPF, CBCDIF #### Unless otherwise noted, all testing performed by [address] [place], [place] [address] CLIA: [id number] Lpc: Patrice Bedoya M.D. RENAL FUNCTION PANEL Collected: 03/18/2018 Status: F Source: [facility] 7:20 AM [facility] REPOSITORY TYPE CODE TESTS RESULT OUT OF REFERENCE UNITS RANGE LAB GLU 70-99 mg/dL High Glucose 114 Result Comment: This test result might be falsely depressed or falsely elevated on samples drawn from patients taking Sulfasalazine and Sulfapyridine. Venipuncture should occur prior to taking either of these drugs. LAB BUN 8-25 mg/dL BUN High 99 LAB CREA 0.80-1.30 mg/dL Creatinine High 2.44 LAB eGFR >60 ml/min/1.73s Low q.m eGFR,NonAfrican-Am erican 27 Result Comment: Non- GFR Calc eGFR is an estimated Glomerular Filtration Rate based on the value of the patient's serum creatinine. In outpatients, eGFR should be used as a helpful tool in screening for CKD. In inpatients or patients with acute renal failure, eGFR represents the GFR at the moment of the draw and should be used with caution. LAB eGFRB >60 ml/min/1.73sq.m eGFR, -Swedish Low 32 Result Comment: GFR Calc LAB CALCM 8.4-10.2 mg/dL Calcium 8.6 LAB NA 135-145 mmol/L Low Sodium 133 LAB K 3.5-5.1 mmol/L Potassium 3.7 LAB CL 98-108 mmol/L Low Chloride 96 LAB CO2 21-32 mmol/L CO2 27 LAB ALB 3.2-5.2 g/dL Albumin 3.3 LAB PHOS 2.3-3.7 mg/dL Phosphorus High 4.3 Performed By: #### RENAL, PTHI, HEPF, CBCDIF #### Unless otherwise noted, all testing performed by [address] [place], [place] [address] CLIA: [id number] Lpc: Patrice Bedoya M.D. HEPATIC FUNCTION Collected: 03/18/2018 Status: F Source: [facility] PANEL 7:20 AM [facility] TYPE CODE TESTS RESULT OUT OF RANGE REFERENCE UNITS LAB AST 0-45 U/L Normal AST 13 (SGOT) Result Comment: This test result might be falsely depressed or falsely elevated on samples drawn from patients taking Sulfasalazine and Sulfapyridine. Venipuncture should occur prior to taking either of these drugs. LAB ALT 14-65 U/L Normal ALT (SGPT) 23 Result Comment: This test result might be falsely depressed or falsely elevated on samples drawn from patients taking Sulfasalazine and Sulfapyridine. Venipuncture should occur prior to taking either of these drugs. LAB ALKP 40-150 U/L Normal Alkaline Phosphatase 50 LAB BILIT 0.3-1.2 mg/dL Normal Bilirubin,Total 0.3 LAB BILID 0.0-0.4 mg/dL Normal Bilirubin, Direct 0.1 LAB PROT 6.0-8.0 g/dL Normal Protein, Total 6.0 Performed By: #### RENAL, PTHI, HEPF, CBCDIF #### Unless otherwise noted, all testing performed by [place] [address] CLIA: [id number] Lpc: Patrice Bedoya M.D. GLUCOSE, POC Collected: 03/17/2018 Status: F Source: [facility] 8:55 PM [facility] TYPE CODE TESTS RESULT OUT OF RANGE REFERENCE UNITS LAB GLUX 80-115 mg/dL High Glucose, 188 POC Performed By: #### GLUX #### Unless otherwise noted, all testing performed by [place] [address] CLIA: [id number] Lpc: Patrice Bedoya M.D. US ABDOMEN LIMITED Observed: 03/17/2018 Status: F Source: [facility] 11:29 AM [facility] REPOSITORY Final Report Accession No: [id number] Performed: Mar 17 2018 11:29AM Examination: US ABDOMEN LIMITED EXAM: US ABDOMEN LIMITED HISTORY: 67 years old Male presenting with abdominal distention. TECHNIQUE: Limited four-quadrant abdominal ultrasound for ascites. COMPARISON: None. FINDINGS/IMPRESSION: No evidence of ascites. Interpreting Physician: SRINATH YOU D.O. Trans: [id number] : cc: TSH Collected: 03/17/2018 Status: F Source: [facility] 10:18 AM [facility] REPOSITORY TYPE CODE TESTS RESULT OUT OF RANGE REFERENCE UNITS LAB TSH 0.320-5.000 uIU/mL Normal TSH 0.45 Result Comment: Samples from patients routinely receiving high dose biotin therapy (100-300 mg/day) may show falsely decreased results. Please correlate clinically. Performed By: #### CH50, C-3, TSH, C-4 #### Unless otherwise noted, all testing performed by [place] [address] CLIA: [id number] Lpc: Patrice Bedoya M.D. C-4 COMPLEMENT Collected: 03/17/2018 Status: F Source: [facility] 10:18 AM [facility] REPOSITORY TYPE CODE TESTS RESULT OUT OF RANGE REFERENCE UNITS LAB C-4 16.0-47.0 mg/dL C-4 Normal Complement 18.6 Result Comment: Test Performed by [facility] [address] [address] Performed By: #### CH50, C-3, TSH, C-4 #### Unless otherwise noted, all testing performed by [place] [address] CLIA: [id number] Lpc: Patrice Bedoya M.D. C-3 COMPLEMENT Collected: 03/17/2018 Status: F Source: [facility] 10:18 AM [facility] REPOSITORY TYPE CODE TESTS RESULT OUT OF RANGE REFERENCE UNITS LAB C-3 73.0-183.0 mg/dL C-3 Normal Complement 88.8 Result Comment: Test Performed by [facility] [address] [address] Performed By: #### CH50, C-3, TSH, C-4 #### Unless otherwise noted, all testing performed by [address] [place] [address] CLIA: [id number] Lpc: Partice Bedoya M.D. CH50 (COMPLEMENT TOTAL) Collected: 03/17/2018 Status: F Source: [facility] 10:18 AM [facility] REPOSITORY TYPE CODE TESTS RESULT OUT OF RANGE REFERENCE UNITS LAB CH50 30 - 75 U/mL Normal CH50 57 (Complement Total) Result Comment: Test Performed by: [place] [address] Performed By: #### CH50, C-3, TSH, C-4 #### Unless otherwise noted, all testing performed by [place] [address] CLIA: [id number] Lpc: Patrice Bedoya M.D. CONSULTATION Observed: 03/17/2018 Status: F Source: [facility] 9:[address] [place] [address] NAME ANGELINA GIMENEZ [facility] [id number] 1950 DATE 03/16/2018 CONSULTATION LEATHER CRAFTSMAN MIGUEL METZ MD REFERRING PHYSICIAN Hospitalist. REASON FOR CONSULTATION Renal failure. BRIEF HISTORY Mr. Gimenez is a pleasant 67-year-old male, known to our group from prior evaluation. He has been followed by my associate, Dr. Mclean, for chronic kidney disease. He has multiple medical problems, a longstanding history of hypertension, with a history of CVA, congestive heart failure, peripheral vascular disease, recent pneumonia. He was admitted to the hospital in January, with pneumonia, was treated with IV antibiotic, and noted to have elevated BUN and creatinine. Patient was seen by Dr. Jeter. On January 16, 2018, creatinine 2.27. He was on diuretic, including metolazone and Lasix. He was discharged January 18, 2018 with a BUN of 81, creatinine 2.0, with an EGFR 33 mL/minute. The patient likes drinking ice and water, drinks on an average 2-3 L of fluid. In the office, he was evaluated by Dr. Jeter. At that time BUN was 40, creatinine 1.6. In view of his increasing edema, his Aldactone dose was increased, and also Bumex was increased. Had a followup lab on 03/16/2018, noted to have a significantly elevated BUN and creatinine and potassium, advised to come to the emergency room. In the ER noted a BUN 103, creatinine 3.56, and a potassium of 6.1. The patient is noted to be clinically volume overloaded, was given IV Bumex, Kayexalate. Hyperkalemia resolved. Potassium this morning is 4.0, creatinine 3.14, and BUN 115. He complains of having a dry mouth. Denies any chest pain. His shortness of breath is improved. Apparently at home he gets short of breath and uses his CPAP, which gives him a dry mouth, makes him drink more water. Complains of lower extremity edema, although he claimed that is somewhat improved since he came to the hospital with IV diuresis. He denies any dysuria, hematuria, pyuria. No nausea or vomiting. PAST MEDICAL HISTORY 1. Hypertension, longstanding. 2. History of CVA. 3. History of coronary artery disease, status post bypass surgery. 4. History of COPD. 5. History of congestive heart failure. 6. History of alcohol abuse. 7. History of myocardial infarction. 8. Peripheral vascular disease. 9. Chronic kidney disease stage 4. His workup in the hospital in January 2018, urinalysis unremarkable. Urine immunofixation, no paraprotein effected. His renal ultrasound 01/16/2018 shows right kidney 11.8, left kidney 10.1 cm. His renal Doppler with no evidence of renal artery stenosis. Apparently his last echocardiogram in the [facility] system was in 2014, noted to have hyperdynamic left ventricular systolic function, normal left ventricular size. No significant valvular disease was identified. SOCIAL HISTORY Used to smoke heavily, then cut down to 1 pack-a-day. History of alcohol use in the past. Denies any substance abuse. MEDICATIONS 1. Docusate sodium 100 mg twice a day. 2. Pepcid 20 mg daily. 3. Heparin 5000 subcu q.8 hours. 4. Plavix 75 mg daily. 5. Aspirin 81 mg a day. 6. Diltiazem 240 mg a day. 7. Ferrous sulfate 325 mg twice a day. 8. Metoprolol 100 mg twice a day. 9. Requip 1 mg at bedtime. 10. Hydralazine 25 mg 3 times a day. 11. Tamsulosin 0.4 mg bedtime. MEDICATIONS PRIOR TO ADMISSION Aspirin, Bumex 1 mg twice a day, Plavix, diltiazem, docusate sodium, hydralazine 25, and losartan 50 mg daily, potassium 20 mg daily, spironolactone 25 mg daily, tamsulosin daily. ALLERGIES Allergic to Ambien, amoxicillin, and Avapro. FAMILY HISTORY No history of kidney disease. PHYSICAL EXAMINATION General: Middle-aged male in no apparent distress. Vital Signs: Blood pressure ok, heart rate 69, respiratory rate 18, afebrile. His weight on 01/14/2018 was 95 kg, on 03/16/2018 weight 90 kg. Today, the weight is 88.8 kg. HEENT: Atraumatic, normocephalic. Oral mucosa pink and moist. Neck: Short, thick. No JVD. Lungs: Bilaterally clear. Heart: Normal. No gallop. Abdomen: Soft. Bowel sounds present. Back: Somewhat distended. Extremities: 2 to 3+ pitting edema bilaterally. IMPRESSION 1. Acute on chronic kidney disease. 2. Hyperkalemia. 3. Chronic kidney disease stage 4. 4. Hypertension. 5. Atherosclerotic heart disease with history of bypass surgery. 6. History of peripheral artery disease. 7. History of CVA. 8. Hyponatremia. 9. Anemia. 10. Decompensated diastolic heart failure. 11. History of tobacco abuse. 12. History of alcohol abuse. ASSESSMENT 1. Mr. Gimenez has acute on chronic kidney disease, acute probably due to hemodynamic changes, a combination of ARB and diuretic, and probable small-vessel atherosclerotic renal disease. His losartan will be discontinued. 2. His creatinine is trending down; BUN lags behind. 3. Chronic kidney disease stage 4 secondary to hypertensive nephrosclerosis and probable small-vessel atherosclerotic renal disease. Apparently no evidence of renal artery stenosis on the renal Doppler. His urine immunofixation was unremarkable. We will be checking a urine protein, creatinine ratio. Will do a limited workup. We will try to obtain baseline BUN and creatinine from his PMD's office. 4. Acute on chronic diastolic heart failure: Probably has underlying pulmonary hypertension. We will repeat echocardiogram. Apparently being followed by Cardiology in [place]. We will hold off diuretic today. 5. Hyponatremia, clinically hypervolemic secondary to his heart failure. I agree with fluid restriction. 6. Hyperkalemia secondary to spironolactone, and renal failure and losartan, now improved. 7. Anemia: Has been evaluated by supervisor trust accounts in the past. Immunofixation was negative. May partly be due to chronic kidney disease. 8. At length, discussed with the patient about the cardiorenal status. All questions answered. Thank you for involving us in the care of Mr. Gimenez. MIGUEL METZ MD D 03/17/2018 09:09 [id number] T 03/17/2018 10:04 RP/MODL Electronically Signed By Miguel Metz M.D. on 17 Mar 2018 18:56:36 GMT GLUCOSE, POC Collected: 03/17/2018 Status: F Source: [facility] 8:11 AM [facility] REPOSITORY TYPE CODE TESTS RESULT OUT OF RANGE REFERENCE UNITS LAB GLUX 80-115 mg/dL High Glucose, 162 POC Performed By: #### GLUX #### Unless otherwise noted, all testing performed by [facility] [address] [place], [place] [address] CLIA: [id number] Lpc: Patrice Bedoya M.D. CBC WITH DIFF Collected: 03/17/2018 Status: F Source: [facility] 6:19 AM [facility] REPOSITORY TYPE CODE TESTS RESULT OUT OF RANGE REFERENCE UNITS LAB WBC 3.6-10.4 K/mcL WBC Normal 7.6 LAB RBC 4.0-5.5 M/mcL Low RBC 3.18 LAB HGB 12.9-16.9 g/dL Low Hemoglobin 9.9 LAB HCT 37.9-49.2 % Low Hematocrit 30.3 LAB MCV 82.8-99.3 FL MCV Normal 95.5 LAB MCH 27.7-34.6 pg MCH Normal 31.2 LAB MCHC 32.9-35.5 g/dL Low MCHC 32.6 LAB PLT 139-354 K/mcL Platelet Normal Count 222 LAB MPV 6.6-10.8 FL MPV Normal 7.3 LAB NEUT# 1.4-6.8 K/mcL Normal Neutrophil # 6.4 LAB LYMPH# 0.9-3.6 K/mcL Low Lymphocyte # 0.6 LAB MONO# 0.2-0.6 K/mcL Monocyte Normal # 0.6 LAB EOS# 0-0.5 K/mcL Normal Eosinophil # 0.0 LAB BASO# 0-0.2 K/mcL Basophil Normal # 0.0 LAB SEGNEU% % Normal Segmented Neut % 83.6 LAB LYMP% % Normal Lymphocyte% 8.4 LAB MO% % Monocyte Normal % 7.9 LAB EO% % Normal Eosinophil % 0.0 LAB BA% % Basophil Normal % 0.1 LAB RDW 10-14.3 % High RDW 23.6 Result Comment: Smear reviewed for RBC morphology. LAB ANISO None Seen Abnormal Anisocytosis 2+ Performed By: #### CHEMG, CBCDIF #### Unless otherwise noted, all testing performed by [facility] [address] [place], [place] [address] CLIA: [id number] Lpc: Patrice Bedoya M.D. CHEMG (BASIC METABOLIC Collected: 03/17/2018 Status: F Source: [facility] ) 6:19 AM [facility] REPOSITORY TYPE CODE TESTS RESULT OUT OF REFERENCE UNITS RANGE LAB GLU 70-99 mg/dL High Glucose 126 Result Comment: This test result might be falsely depressed or falsely elevated on samples drawn from patients taking Sulfasalazine and Sulfapyridine. Venipuncture should occur prior to taking either of these drugs. LAB BUN 8-25 mg/dL High Alert BUN 115 Result Comment: [id number] CALLED CRITICAL RESULTS ON 03/17/2018 @ 0755 TO AND READ BACK BY ODALYS CRUMP? in B21 LAB CREA 0.80-1.30 mg/dL Creatinine High 3.14 LAB eGFR >60 ml/min/1.73 sq.m Low eGFR,NonAfrican-A 20 merican Result Comment: Non- GFR Calc eGFR is an estimated Glomerular Filtration Rate based on the value of the patient's serum creatinine. In outpatients, eGFR should be used as a helpful tool in screening for CKD. In inpatients or patients with acute renal failure, eGFR represents the GFR at the moment of the draw and should be used with caution. LAB eGFRB >60 ml/min/1.73sq.m eGFR, -Swedish Low 24 Result Comment: GFR Calc LAB CALCM 8.4-10.2 mg/dL Calcium 9.1 LAB NA 135-145 mmol/L Low Sodium 132 LAB K 3.5-5.1 mmol/L Potassium 4.0 LAB CL 98-108 mmol/L Low Chloride 95 LAB CO2 21-32 mmol/L CO2 24 LAB MG 1.6-2.4 mg/dL High Magnesium 3.7 Performed By: #### CHEMG, CBCDIF #### Unless otherwise noted, all testing performed by [address] [place] [address] CLIA: [id number] Lpc: Patrice Bedoya M.D. POTASSIUM Collected: 03/17/2018 Status: F Source: [facility] 12:00 AM [facility] REPOSITORY TYPE CODE TESTS RESULT OUT OF REFERENCE UNITS RANGE LAB K 3.5-5.1 mmol/L High Potassium 5.7 Performed By: #### K #### Unless otherwise noted, all testing performed by [place] [address] CLIA: [id number] Lpc: Patrice Bedoya M.D. CHEST PA AND LATERAL Observed: 03/16/2018 Status: F Source: [facility] 8:19 PM [facility] REPOSITORY Final Report Accession No: [id number] Performed: Mar 16 2018 8:19PM Examination: CHEST PA AND LATERAL HISTORY: Shortness of breath. TECHNIQUE: Two views of the chest were obtained and compared to 01/15/2018. FINDINGS: Cardiomediastinal silhouette is stable with enlargement of the heart. There has been a prior median sternotomy and there is granulomatous disease. There are changes suspicious for COPD with hyperinflation of the lungs. No consolidation, pneumothorax, or effusion is seen. There are degenerative changes of the thoracic spine. IMPRESSION: Cardiomegaly. No acute process is identified. Interpreting Physician: ROBYN MCKENNA M.D. Trans: abond : cc: URINALYSIS, ROUTINE Collected: 03/16/2018 Status: F Source: [facility] 7:23 PM [facility] REPOSITORY TYPE CODE TESTS RESULT OUT OF REFERENCE UNITS RANGE LAB COLOR Normal Color, Urine Straw LAB CHAUR Normal Character Clear LAB SPGRUR 1.003-1.029 Normal Specific 1.006 [place],Urine LAB PHUR 4.5-8.0 Normal pH,Urine 5.0 LAB GLUCUR NEG;NEGATIVE mg/dL Normal Glucose,Urine Negative LAB KETUR NEG;NEGATIVE mg/dL Normal Ketone,Urine Negative LAB PROTUR NEG;NEGATIVE mg/dL Normal Protein,Urine Negative LAB BLDUR NEG;NEGATIVE Normal Blood,Urine Negative LAB NITUR NEG;NEGATIVE Normal Nitrite,Urine Negative LAB BILIUR NEG;NEGATIVE Normal Bilirubin,Urin Negative e LAB UROUR <2 mg/dL Normal Urobilinogen,U < 2.0 rine LAB LEUESTUR Negative Normal Leuk.Esterase, Negative Urine LAB WBCUR 0-5 /HPF Normal WBC,Urine 1 LAB RBCUR 0-5 /HPF Normal RBC,Urine < 1 LAB CASTHY 0-5 /LPF Normal Cast, Hyaline 4 Performed By: #### UA #### Unless otherwise noted, all testing performed by [address] [place], [place] [address] CLIA: [id number] Lpc: Patrice Bedoya M.D. CBC W/O DIFF Collected: 03/16/2018 Status: F Source: [facility] 7:01 PM [facility] REPOSITORY TYPE CODE TESTS RESULT OUT OF REFERENCE UNITS RANGE LAB WBC 3.6-10.4 K/mcL WBC High 11.9 LAB RBC 4.0-5.5 M/mcL Low RBC 3.12 LAB HGB 12.9-16.9 g/dL Low Hemoglobin 9.8 LAB HCT 37.9-49.2 % Low Hematocrit 30.0 LAB MCV 82.8-99.3 FL MCV 96.3 LAB MCH 27.7-34.6 pg MCH 31.6 LAB MCHC 32.9-35.5 g/dL Low MCHC 32.8 LAB RDW 10-14.3 % RDW High 23.6 LAB PLT 139-354 K/mcL Platelet Count 216 LAB MPV 6.6-10.8 FL MPV 7.1 Performed By: #### PT, MG, CBCWOD, CMET, NTPROBNP, PTT, EDCTNI #### Unless otherwise noted, all testing performed by [address] [address] CLIA: [id number] Lpc: Patrice Bedoya M.D. PROTIME Collected: 03/16/2018 Status: F Source: [facility] 7:01 PM [facility] REPOSITORY TYPE CODE TESTS RESULT OUT OF RANGE REFERENCE UNITS LAB PT. 11.8-14.3 Seconds Normal Protime 12.8 LAB INR Normal INR 0.99 Result Comment: The [place] [employer] recommended therapeutic range for Warfarin (Coumadin) therapy goals: PROPHYLAXIS/TREATMENT of: INR Venous Thrombosis, Pulmonary Embolism 2.0-3.0 Prevention of VTE (Orthopedic Surgery) 2.0-3.0 Atrial Fibrillation 2.0-3.0 Myocardial Infarction 2.0-3.0 Mechanical Prosthetic Heart Valves (Aortic position) 2.0-3.0 Mechanical Prosthetic Heart Valves (Mitral Position) 2.5-3.5 [employer] evidence-based clinical practice guidelines. CHEST. 2012 (9th ed) Performed By: #### PT, MG, CBCWOD, CMET, NTPROBNP, PTT, EDCTNI #### Unless otherwise noted, all testing performed by [address] [address] CLIA: [id number] Lpc: Patrice Bedoya M.D. PARTIAL THROMBOPLASTIN Collected: 03/16/2018 Status: F Source: [facility] TIME 7:01 PM [facility] REPOSITORY TYPE CODE TESTS RESULT OUT OF REFERENCE UNITS RANGE LAB PTT 23.0-34.0 Seconds Partial Normal Thromboplastin Time 23 Result Comment: Suggested therapeutic range for PTT is 68-104 sec. Performed By: #### PT, MG, CBCWOD, CMET, NTPROBNP, PTT, EDCTNI #### Unless otherwise noted, all testing performed by [address] [address] CLIA: [id number] Lpc: Patrice Bedoya M.D. ED CARDIAC TROPONIN-I Collected: 03/16/2018 Status: F Source: [facility] 7:00 PM [facility] REPOSITORY TYPE CODE TESTS RESULT OUT OF RANGE REFERENCE UNITS LAB EDCTNI < 45 ng/L Normal ED Cardiac 26 Troponin-I Result Comment: Elevation of troponin indicates some degree of myocardial necrosis but unless there is a significant rise and/or fall (if elevated) identified, it unlikely that an acute event has taken place Samples from patients routinely receiving high dose biotin therapy (100-300 mg/day) may show falsely decreased results. Please correlate clinically. Performed By: #### PT, MG, CBCWOD, CMET, NTPROBNP, PTT, EDCTNI #### Unless otherwise noted, all testing performed by [place] [address] CLIA: [id number] Lpc: Patrice Bedoya M.D. COMPREHENSIVE METABOLIC Collected: 03/16/2018 Status: F Source: [facility] 7:00 [facility] TYPE CODE TESTS RESULT OUT OF REFERENCE UNITS RANGE LAB GLU 70-99 mg/dL High Glucose 132 Result Comment: This test result might be falsely depressed or falsely elevated on samples drawn from patients taking Sulfasalazine and Sulfapyridine. Venipuncture should occur prior to taking either of these drugs. LAB BUN 8-25 mg/dL High Alert BUN 103 Result Comment: [id number] CALLED CRITICAL RESULTS ON 03/16/2018 @ 1955 TO AND READ BACK BY LEVON ROE in A1E LAB CREA 0.80-1.30 mg/dL Creatinine High 3.56 LAB eGFR >60 ml/min/1.73 sq.m Low eGFR,NonAfrican-A 17 merican Result Comment: Non- GFR Calc eGFR is an estimated Glomerular Filtration Rate based on the value of the patient's serum creatinine. In outpatients, eGFR should be used as a helpful tool in screening for CKD. In inpatients or patients with acute renal failure, eGFR represents the GFR at the moment of the draw and should be used with caution. LAB eGFRB >60 ml/min/1.73sq.m eGFR, -Swedish Low 21 Result Comment: GFR Calc LAB CALCM 8.4-10.2 mg/dL Calcium 9.3 LAB NA 135-145 mmol/L Low Sodium 127 LAB K 3.5-5.1 mmol/L High Alert Potassium 6.1 Result Comment: [id number] CALLED CRITICAL RESULTS ON 03/16/2018 @ 1956 TO AND READ BACK BY LEVON ROE in A1E LAB CL 98-108 mmol/L Low Chloride 94 LAB CO2 21-32 mmol/L CO2 22 LAB AST 0-45 U/L AST (SGOT) 10 Result Comment: This test result might be falsely depressed or falsely elevated on samples drawn from patients taking Sulfasalazine and Sulfapyridine. Venipuncture should occur prior to taking either of these drugs. LAB ALT 14-65 U/L ALT (SGPT) 21 Result Comment: This test result might be falsely depressed or falsely elevated on samples drawn from patients taking Sulfasalazine and Sulfapyridine. Venipuncture should occur prior to taking either of these drugs. LAB ALKP 40-150 U/L Alkaline Phosphatase 52 LAB BILIT 0.3-1.2 mg/dL Bilirubin,Total 0.4 LAB PROT 6.0-8.0 g/dL Protein, Total 6.6 LAB ALB 3.2-5.2 g/dL Albumin 3.6 Performed By: #### PT, MG, CBCWOD, CMET, NTPROBNP, PTT, EDCTNI #### Unless otherwise noted, all testing performed by [place] [address] [address] [place], [place] [address] CLIA: [id number] Lpc: Patrice Bedoya M.D. MAGNESIUM Collected: 03/16/2018 Status: F Source: [facility] 7:00 PM [facility] REPOSITORY TYPE CODE TESTS RESULT OUT OF REFERENCE UNITS RANGE LAB MG 1.6-2.4 mg/dL High Magnesium 3.8 Performed By: #### PT, MG, CBCWOD, CMET, NTPROBNP, PTT, EDCTNI #### Unless otherwise noted, all testing performed by [address] [address] CLIA: [id number] Lpc: Patrice Bedoya M.D. NT-PRO BNP, SERUM Collected: 03/16/2018 Status: F Source: [facility] 7:00 PM [facility] REPOSITORY TYPE CODE TESTS RESULT OUT OF REFERENCE UNITS RANGE LAB NTPROBNP 0-125 pg/mL High 2071 NT-Pro BNP, Serum Performed By: #### PT, MG, CBCWOD, CMET, NTPROBNP, PTT, EDCTNI #### Unless otherwise noted, all testing performed by [place] [address] CLIA: [id number] Lpc: Patrice Bedoya M.D. CBC W/ AUTO DIFF Collected: 03/16/2018 Status: F Source: [facility] 11:56 AM [facility] REPOSITORY TYPE CODE TESTS RESULT OUT OF RANGE REFERENCE UNITS LAB [id number](L 3.6-11.0 E3/mcL OINC) Normal WBC 10.6 LAB 72698917(L 3.90-6.10 E6/mcL OINC) Low RBC 3.12 LAB 16068492(L 13.5-18.0 G/DL OINC) Low Hgb 9.8 LAB 24530536(L 42.0-52.0 % OINC) Low Hct 30.1 LAB 12551873(L 11.5-14.5 % OINC) High RDW 23.9 LAB 32392752(L 27.0-31.0 pg OINC) High MCH 31.4 LAB 98296707(L 33.0-37.0 G/DL OINC) Low MCHC 32.6 LAB 05593720(L 78.0-100.0 fL OINC) Normal MCV 96.3 LAB 63420861(L 7.4-11.0 fL OINC) Low MPV 7.3 LAB 11274812(L 130-400 E3/mcL OINC) Normal Platelet 209 Performed By: #### [id number] #### RHONDA [facility] [address] [place] [id number] MORPH Collected: 03/16/2018 Status: F Source: [facility] 11:56 AM [facility] REPOSITORY Order Comment: Order Added by Discern Expert. TYPE CODE TESTS RESULT OUT OF REFERENCE UNITS RANGE LAB 16089995( LOINC) RBC Morph SEE Normal MORPHOLOGY LAB 40832165( LOINC) 1+ Normal Schistocytes LAB 92451588( LOINC) Ovalocytes 1+ Normal Performed By: #### [id number] #### RHONDA Rem[facility]emo [facility] [place] [address] ZZPLT MORPH Collected: 03/16/2018 Status: F Source: [facility] 11:56 AM [facility] REPOSITORY TYPE CODE TESTS RESULT OUT OF RANGE REFERENCE UNITS LAB 81169257(L OINC) Normal Platelet NORMAL Estimate LAB 27571813(L OINC) Normal Platelet Morph NORMAL Performed By: #### [id number] #### [facility] [address] [place] [address] AUTO DIFF Collected: 03/16/2018 Status: F Source: [facility] 11:56 AM [facility] REPOSITORY Order Comment: Order Added by Discern Expert. TYPE CODE TESTS RESULT OUT OF RANGE REFERENCE UNITS LAB 89433973(L 37.0-75.0 % OINC) High Neutro Auto 79.0 LAB 74108670(L 20.0-55.0 % OINC) Low Lymph Auto 10.2 LAB 97940849(L 0.0-10.0 % OINC) High Goliad Auto 10.4 LAB 08517994(L 0.0-11.0 % OINC) Normal Eos Auto 0.1 LAB 97667435(L 0.0-2.0 % OINC) Normal Basophil Auto 0.3 LAB 38342828(L 1.4-6.5 E3/mcL OINC) High Neutro 8.4 Absolute LAB 37887761(L 1.2-3.4 E3/mcL OINC) Low Lymph Absolute 1.1 LAB 34326664(L 0.0-0.7 E3/mcL OINC) High [place]oli[place] Absolute 1.1 LAB 50745403(L 0.0-0.7 E3/mcL OINC) Normal Eos Absolute 0.0 LAB 61041636(L 0.0-0.2 E3/mcL OINC) Normal Basophil 0.0 Absolute Performed By: #### [id number] #### RHONDA Lopez [facility] [place] [address] CMP Collected: 03/16/2018 Status: C Source: [facility] 11:56 AM [facility] REPOSITORY TYPE CODE TESTS RESULT OUT OF RANGE REFERENCE UNITS LAB 50076960(L 42-121 Int._Unit/ OINC) Low L Alk Phos 41 LAB 93829596(L 0.2-1.0 mg/dL OINC) Normal Bili Total 0.7 LAB 41551085(L 3.2-5.0 G/DL OINC) Normal Albumin Lvl 3.8 LAB 00779218(L 6.4-8.3 G/DL OINC) Low Total Protein 6.0 LAB 73360362(L 10-40 Int._Unit/ OINC) Normal L ALT 18 LAB 48589492(L 10-42 Int._Unit/ OINC) Normal L AST 17 LAB 10779491(L 2.0-4.0 G/DL OINC) Normal Globulin 2.2 LAB 40906275(L 1.1-1.9 ratio OINC) Normal A/G Ratio 1.7 LAB 90605483(L 136-145 mEq/L OINC) Low Sodium Lvl 121 LAB 42545179(L 8.4-10.2 mg/dL OINC) Normal Calcium Lvl 9.3 LAB 60980146(L 98-107 mEq/L OINC) Low Chloride 91 LAB 04767173(L 24.0-30.0 mEq/L OINC) Low CO2 18.4 LAB 45536251(L 70-99 mg/dL OINC) High Glucose Lvl 182 LAB 8174989(LO 0.6-1.3 mg/dL INC) High Creatinine 3.3 LAB 93445212(L 7-18 mg/dL OINC) BUN Abnormal 104 Alert Result Comment: repeated and verified. Tried to call at 1242, answering machine. will call back after 1p. m. laboratory technologist called, gave results to Gilberto Novak\Critical Result BUN: Called to: GILBERTO NOVAK at: 12:58:33 by:LORNA Read back by:GILBERTO NOVAK LAB 94442988(LOINC) 5.4-30.0 ratio High BUN/Creat Ratio 31.5 LAB 67380327(LOINC) 3.5-5.1 mEq/L Abnormal Potassium Lvl Alert 6.6 Result Comment: repeated and verified. Tried to call at 1242, answering machine, will callback after 1 pm. laboratory technologist called , gave results to Gilberto Novak at 1300.\Critical Result K: Called to: GILBERTO MACK at: 12:59:13 by:LORNA Read back by:GILBERTO NOVAK repeated and verified. Tried to call at 1242, answering machine, will callback after 1 pm. laboratory technologist called , gave results to Gilberto Novak at 1300.\Critical Result K: Called to: GILBERTO NOVAK at: 12:59:13 by:LORNA Read back by:GILBERTO novak called the dr office and gave to critical result at 1:19pm ; Performed By: #### [id number] #### RHONDA [facility] [place] [address] LIPID PROFILE Collected: 03/16/2018 Status: F Source: [facility] 11:56 AM [facility] REPOSITORY TYPE CODE TESTS RESULT OUT OF RANGE REFERENCE UNITS LAB 43052361(LO 50-200 mg/dL INC) Normal Chol 117 Result Comment: TOTAL CHOLEESTEROL: <200 NORMAL 200 - 239 BORDERLINE HIGH >240 HIGH LAB 87854594(LOINC) >=41 mg/dL Normal HDL 91 LAB 00718063(LOINC) 0-130 mg/dL Normal LDL 19 Result Comment: <100 OPTIMAL 100-129 NEAR / ABOVE OPTIMAL 130-159 BORDERLINE HIGH 160-189 HIGH >190 VERY HIGH CALC LDL NOT VALID WHEN TRIGLYCERIDE IS >400 MG/DL LAB 27336565(LOINC) 35-150 mg/dL Normal Trig 35 Result Comment: <150 NORMAL 150-199 BORDERLINE HIGH 200-499 HIGH >500 VERY HIGH LAB 42979359(LOINC) Normal VLDL 7 Performed By: #### [id number] #### RHONDA [facility] [place] [id number] PSA SCREEN Collected: 03/16/2018 Status: F Source: [facility] 11:56 AM [facility] REPOSITORY TYPE CODE TESTS RESULT OUT OF RANGE REFERENCE UNITS LAB 66458782(LO ng/mL INC) Normal PSA 0.17 Result Comment: AGE-SPECIFIC REFERENCE RANGES FOR SERUM PSA REFERENCE RANGE NG/ML AGE ASIANS BLACKS WHITE 40-49 0- 2 0-2 0-2.5 50-59 0- 3 0-4 0-3.5 60-69 0- 4 0-4.5 0-4.5 70-79 0- 5 0-5.5 0-6.5 PSA INCREASES WITH AGE, RACE, AND EJACULATION WITHIN 48 HRS. [facility] VOL24,NO.2, , PG.339 Performed By: #### [id number] #### RHONDA [employer] [address] [place] [address] EGFR Collected: 03/16/2018 Status: F Source: [facility] 11:56 AM [facility] REPOSITORY Order Comment: Order added by Discern Expert. TYPE CODE TESTS RESULT OUT OF RANGE REFERENCE UNITS LAB 60914282(LO mL/min/1.73 INC) m2 Normal eGFR 19 LAB 96206540(LO mL/min/1.73 INC) m2 Normal eGFR AA 23 Performed By: #### [id number] #### RHONDA [facility] [address] [place] [id number] BMP Collected: 03/02/2018 Status: F Source: [facility] 12:29 PM [facility] REPOSITORY TYPE CODE TESTS RESULT OUT OF RANGE REFERENCE UNITS LAB 47686593(L 70-99 mg/dL OINC) High Glucose Lvl 160 LAB 74210306(L 7-18 mg/dL OINC) High BUN 46 LAB 8336083(LO 0.6-1.3 mg/dL INC) High Creatinine 1.8 LAB 86471675(L 5.4-30.0 ratio OINC) Normal BUN/Creat Ratio 25.6 LAB 99583389(L 8.4-10.2 mg/dL OINC) Calcium Normal Lvl 9.5 LAB 58567638(L 136-145 mEq/L OINC) Low Sodium Lvl 135 LAB 11879608(L 3.5-5.1 mEq/L OINC) Normal Potassium Lvl 4.8 LAB 18219983(L 98-107 mEq/L OINC) Chloride Normal 99 LAB 07009594(L 24.0-30.0 mEq/L OINC) CO2 Normal 24.4 Performed By: #### [id number] #### RHONDA [facility] [address] [place] [address] EGFR Collected: 03/02/2018 Status: F Source: [facility] 12:29 PM [facility] REPOSITORY Order Comment: Order added by Discern Expert. TYPE CODE TESTS RESULT OUT OF RANGE REFERENCE UNITS LAB 50705915(LO mL/min/1.73 INC) m2 Normal eGFR 38 LAB 57926507(LO mL/min/1.73 INC) m2 Normal eGFR AA 46 Performed By: #### [id number] #### RHONDA [facility] [address] [place] [address] CBC W/ AUTO DIFF Collected: 02/16/2018 Status: F Source: [facility] 12:45 [facility] REPOSITORY TYPE CODE TESTS RESULT OUT OF RANGE REFERENCE UNITS LAB 72868894(L 3.6-11.0 E3/mcL OINC) High WBC 12.2 LAB 12157481(L 3.90-6.10 E6/mcL OINC) Low RBC 3.69 LAB 65047601(L 13.5-18.0 G/DL OINC) Low Hgb 9.8 LAB 86087798(L 42.0-52.0 % OINC) Low Hct 32.6 LAB 04079503(L 11.5-14.5 % OINC) High RDW 26.5 LAB 22042674(L 27.0-31.0 pg OINC) Low MCH 26.6 LAB 53817599(L 33.0-37.0 G/DL OINC) Low MCHC 30.1 LAB 68904040(L 78.0-100.0 fL OINC) Normal MCV 88.5 LAB 59921167(L 7.4-11.0 fL OINC) Normal MPV 8.4 LAB 49525086(L 130-400 E3/mcL OINC) Normal Platelet 199 Performed By: #### [id number] #### RHONDA [facility] [address] [place] [address] MANUAL DIFF Collected: 02/16/2018 Status: F Source: [facility] 12:45 PM [facility] REPOSITORY Order Comment: Order Added by Discern Expert. TYPE CODE TESTS RESULT OUT OF REFERENCE UNITS RANGE LAB 00772111( 37-75 % LOINC) Segs Man 74 Normal LAB 44336365( 0-1 LOINC) Band Man 7 High LAB 87600306( 14-48 % LOINC) Low Lymph Man 12 LAB 99260527( 1-11 % LOINC) Monocyte Man 5 Normal LAB 08861364( 0-5 % LOINC) Eos Man 0 Normal LAB 30927206( 0-1 % LOINC) Basophil Man 0 Normal LAB 58028349( % LOINC) React Lymph 2 Normal Man LAB 55059476( LOINC) RBC Morph SEE Normal MORPHOLOGY LAB 86835973( LOINC) Hypochromasia 2+ Normal LAB 83276076( LOINC) Teardrop Cell 1+ Normal LAB 21005064( LOINC) Schistocytes 1+ Normal LAB 65493670( LOINC) Ovalocytes 1+ Normal Performed By: #### [id number] #### RHONDA [facility] [address] [place] [address] ZZPLT MORPH Collected: 02/16/2018 Status: F Source: [facility] 12:45 [facility] REPOSITORY TYPE CODE TESTS RESULT OUT OF RANGE REFERENCE UNITS LAB 10272718(L OINC) Normal Platelet NORMAL Estimate LAB 34415707(L OINC) Normal Platelet Morph NORMAL Performed By: #### [id number] #### RHONDA VasquezHemo [address] [place] [address] .MANUAL ABS Collected: 02/16/2018 Status: F Source: [facility] 12:45 [facility] REPOSITORY Order Comment: Order Added by Discern Expert. TYPE CODE TESTS RESULT OUT OF RANGE REFERENCE UNITS LAB 49907147(L 1.4-6.5 10x3/ OINC) High Segs Abs Man 9.0 LAB 87786530(L 1.2-3.4 10x3/ OINC) Normal Lymph Abs Man 1.5 LAB 78187131(L 0.0-0.7 10x3/ OINC) Normal [place]oliad Abs Man 0.6 LAB 69548942(L 0.0-0.5 10x3/ OINC) Normal Eos Abs Man 0.0 LAB 06843878(L 0.0-0.2 10x3/ OINC) Normal Basophil Abs 0.0 Man Performed By: #### [id number] #### RHONDA [facility] [address] [place] [address] BMP Collected: 02/16/2018 Status: F Source: [facility] 12:28 PM [facility] REPOSITORY TYPE CODE TESTS RESULT OUT OF RANGE REFERENCE UNITS LAB 50505751(L 70-99 mg/dL OINC) High Glucose Lvl 130 LAB 74039123(L 8.4-10.2 mg/dL OINC) Calcium Normal Lvl 8.6 LAB 54138633(L 136-145 mEq/L OINC) Low Sodium Lvl 129 LAB 17527783(L 3.5-5.1 mEq/L OINC) Normal Potassium Lvl 4.3 LAB 45992587(L 98-107 mEq/L OINC) Low Chloride 94 LAB 81352200(L 24.0-30.0 mEq/L OINC) CO2 Normal 26.5 LAB 41562267(L 7-18 mg/dL OINC) High BUN 50 LAB 3041489(LO 0.6-1.3 mg/dL INC) High Creatinine 1.6 LAB 26015931(L 5.4-30.0 ratio OINC) High BUN/Creat Ratio 31.2 Performed By: #### [id number] #### RHONDA [facility] [address] [place] [id number] EGFR Collected: 02/16/2018 Status: F Source: [facility] 12:28 PM [facility] REPOSITORY Order Comment: Order added by Discern Expert. TYPE CODE TESTS RESULT OUT OF RANGE REFERENCE UNITS LAB 29656987(LO mL/min/1.73 INC) m2 Normal eGFR 43 LAB 05014602(LO mL/min/1.73 INC) m2 Normal eGFR AA 53 Performed By: #### [id number] #### RHONDA [facility] [address] [place] [id number] MAGNESIUM Collected: 02/16/2018 Status: F Source: [facility] 12:28 PM [facility] REPOSITORY TYPE CODE TESTS RESULT OUT OF RANGE REFERENCE UNITS LAB 52181107(L 1.7-2.8 mg/dL OINC) Normal Magnesium 2.8 Performed By: #### [id number] #### RHONDA [facility] [address] [place] [id number] CBC Collected: 02/08/2018 Status: F Source: JESSICA POP 2:18 PM [facility] REPOSITORY TYPE CODE TESTS RESULT OUT OF RANGE REFERENCE UNITS LAB CBC(LOINC) CBC Result Comment: CBC-COMPLETE BLOOD COUNT LAB WBC(LOINC) 4.5 - 10.8 x 10EE3/UL WBC 10.8 LAB RBC(LOINC) 4.50 - x 10EE6/UL 6.00 RBC Low 3.65 LAB HEMOGLOBIN(LOINC 13.0 - g/dl ) 17.5 Low HEMOGLOBIN 9.7 LAB HEMATOCRIT(LOINC 40.0 - % ) 52.0 Low HEMATOCRIT 31.1 LAB MCV(LOINC) 81 - 98 fl MCV 85 LAB MCH(LOINC) 27 - 33 pg MCH 27 LAB MCHC(LOINC) 32 - 36 X10 3 MCHC Low 31 LAB RDW/CV(LOINC) 12.0 - % 15.6 RDW/CV High 26.0 LAB PLATELET(LOINC) 150 - 450 x10EE3/UL PLATELET 211 LAB MPV(LOINC) 6.4 - 10.5 fl MPV 8.7 Result Comment: AUTOMATED DIFFERENTIAL LAB NEUT %(LOINC) 46.0 - % 76.0 NEUT % 75.8 LAB LYMPH %(LOINC) 20.0 - % 45.0 LYMPH % 12.1 Low LAB MONOS %(LOINC) 0.0 - 10.0 % MONOS % 10.8 High LAB EO %(LOINC) 0.0 - 7.0 % EO % 0.8 LAB BASO %(LOINC) 0.0 - 2.0 % BASO % 0.5 LAB Lymph #(LOINC) 0.80 - x10EE3/ 2.80 UL Lymph # 1.30 LAB Neut #(LOINC) 1.50 - x10EE3/ 7.10 UL Neut # 8.20 High LAB Goliad #(LOINC) 0.20 - x10EE3/ 1.00 UL [place] # 1.20 High LAB EO #(LOINC) 0.00 - x10EE3/ 0.50 UL EO # 0.10 LAB Baso #(LOINC) 0.00 - x10EE3/ 0.10 UL Baso # 0.10 LAB MANUAL DIFF(LOINC) MANUAL DIFF SEE BELOW LAB SEGS(LOINC) 50 - 70 % SEGS 82 High LAB LYMPH(LOINC) 20 - 40 % LYMPH 9 Low LAB MONOS(LOINC) 0 - 8 % MONOS 9 High LAB CELL COUNT(LOINC) CELL COUNT 100 LAB MORPHOLOGY(LOIN C) MORPHOLOGY SEE BELOW LAB PLT EST(LOINC) PLT EST NORMAL LAB ANISO(LOINC) ANISO 3+ LAB MACROCYTES(DAHLIA NC) MACROCYTES 1+ LAB POLYCHROM(LOIN C) POLYCHROM 1+ LAB Other(LOINC) Other DIMORPHIC RBC Result Comment: POPULATION {CD] Performed By: #### [id number] #### [facility],[address] [place] [address] BMP Collected: 02/02/2018 Status: F Source: [facility] 12:33 [facility] REPOSITORY TYPE CODE TESTS RESULT OUT OF RANGE REFERENCE UNITS LAB [id number](L 70-99 mg/dL OINC) High Glucose Lvl 274 LAB 26795451(L 7-18 mg/dL OINC) High BUN 43 LAB 3007619(LO 0.6-1.3 mg/dL INC) High Creatinine 1.5 LAB 97458555(L 5.4-30.0 ratio OINC) Normal BUN/Creat Ratio 28.7 LAB 74579325(L 8.4-10.2 mg/dL OINC) Calcium Normal Lvl 8.4 LAB 32382747(L 136-145 mEq/L OINC) Low Sodium Lvl 131 LAB 82879030(L 3.5-5.1 mEq/L OINC) Normal Potassium Lvl 5.1 LAB 71792793(L 98-107 mEq/L OINC) Low Chloride 97 LAB 06525865(L 24.0-30.0 mEq/L OINC) Low CO2 23.3 Performed By: #### [id number] #### [facility] [place] [address] EGFR Collected: 02/02/2018 Status: F Source: [place] 12:33 [facility] REPOSITORY Order Comment: Order added by Discern Expert. TYPE CODE TESTS RESULT OUT OF RANGE REFERENCE UNITS LAB [id number](LO mL/min/1.73 INC) m2 Normal eGFR 47 LAB 15556762(LO mL/min/1.73 INC) m2 Normal eGFR AA 57 Performed By: #### [id number] #### [facility] [address] [place] [address] CBC W/ AUTO DIFF Collected: 02/02/2018 Status: F Source: [place] 12:33 [facility] REPOSITORY TYPE CODE TESTS RESULT OUT OF RANGE REFERENCE UNITS LAB [id number](L 3.6-11.0 E3/mcL OINC) Normal WBC 9.2 LAB 87996005(L 3.90-6.10 E6/mcL OINC) Low RBC 3.49 LAB 34797646(L 13.5-18.0 G/DL OINC) Low Hgb 9.0 LAB 09923914(L 42.0-52.0 % OINC) Low Hct 30.2 LAB 96925268(L 11.5-14.5 % OINC) High RDW 23.5 LAB 76775507(L 27.0-31.0 pg OINC) Low MCH 25.9 LAB 75200905(L 33.0-37.0 G/DL OINC) Low MCHC 29.9 LAB 99808287(L 78.0-100.0 fL OINC) Normal MCV 86.7 LAB [id number](L 7.4-11.0 fL OINC) Normal MPV 8.3 LAB [id number](L 130-400 E3/mcL OINC) Normal Platelet 189 Performed By: #### [id number] #### RHONDA VasquezHemo [facility] [place] [address] MANUAL DIFF Collected: 02/02/2018 Status: F Source: [place] 12:33 [facility] REPOSITORY Order Comment: Order Added by Discern Expert. TYPE CODE TESTS RESULT OUT OF REFERENCE UNITS RANGE LAB [id number]( 37-75 % LOINC) Segs Man 96 High LAB 15576369( 14-48 % LOINC) Low Lymph Man 3 LAB 40014670( 1-11 % LOINC) Monocyte Man 1 Normal LAB 62945659( 0-5 % LOINC) Eos Man 0 Normal LAB 52832685( 0-1 % LOINC) Basophil Man 0 Normal LAB 49898034( LOINC) RBC Morph SEE Normal MORPHOLOGY LAB 55442997( LOINC) Hypochromasia 1+ Normal LAB 98761175( LOINC) Anisocytosis 2+ Normal Performed By: #### [id number] #### RHONDA VasquezHemo [address] [place] [address] ZZPLT MORPH Collected: 02/02/2018 Status: F Source: [place]EN[place]ISM 12:33 PM [facility] REPOSITORY TYPE CODE TESTS RESULT OUT OF RANGE REFERENCE UNITS LAB [id number](L OINC) Normal Platelet NORMAL Estimate LAB 16376086(L OINC) Normal Platelet Morph NORMAL Performed By: #### [id number] #### RHONDA RemHemo [address] [place] [address] .MANUAL ABS Collected: 02/02/2018 Status: F Source: [place]ISM 12:33 PM [facility] REPOSITORY Order Comment: Order Added by Discern Expert. TYPE CODE TESTS RESULT OUT OF RANGE REFERENCE UNITS LAB [id number](L 1.4-6.5 10x3/ OINC) High Segs Abs Man 8.8 LAB 52398491(L 1.2-3.4 10x3/ OINC) Low Lymph Abs Man 0.3 LAB 60819188(L 0.0-0.7 10x3/ OINC) Normal [place] Abs Man 0.1 LAB 66894561(L 0.0-0.5 10x3/ OINC) Normal Eos Abs Man 0.0 LAB 34315562(L 0.0-0.2 10x3/ OINC) Normal Basophil Abs 0.0 Man Performed By: #### [id number] #### RHONDA RemHemo [address] [place] [address] Observed: 02/02/2018 Status: F Source: [facility] BLOOD 12:33 PM [facility] REPOSITORY Final Report: No growth at 5 Days Performed By: #### [id number] #### RHONDA Microbiology Automated Subsection [address] [place] [address] Observed: 02/02/2018 Status: F Source: [facility] BLOOD 12:33 PM [facility] REPOSITORY Order Comment: will need drawn from two sites please Final Report: No growth at 5 Days Performed By: #### [id number] #### RHONDA Microbiology Automated Subsection [address] [place] [address] 12 LEAD ELECTROCARDIOGRAM Observed: 01/31/2018 Status: F Source: [place] 2:26 PM [facility] REPOSITORY [facility] Cardiovascular Services [address] [place] [address] 12 Lead EKG 01/28/18 1509 MR#: [id number] Acct: [id number] Name: YENNI GIMENEZ Rep #: [id number] : 1950 67 From: Mick Rm MD Attending Dr: Chris Stark DO Status: DIS IN Ordering Dr: Nickolas Mccollum MD Date: 01/28/18 Location: [facility] Sex: M C Admitted: 01/28/18 Test Reason : SOB Blood Pressure : / mmHG Vent. Rate : 092 BPM Atrial Rate : 092 BPM P-R Int : 216 ms QRS Dur : 098 ms QT Int : 360 ms P-R-T Axes : 035 080 020 degrees QTc Int : 445 ms Sinus rhythm with 1st degree A-V block with occasional Premature ventricular complexes Otherwise normal ECG Confirmed by VIKY MONTENEGRO, MICK ([id number]), medical transcription editor SHIRA HURD ([id number]) on 01/31/2018 2:25:31 PM Referred By: Confirmed By:MICK RM MD 01/31/18 1425 Date Mick Rm MD CC: Wong Berger; Chris Stark DO; Nickolas Mccollum MD Signed DISCHARGE SUMMARY Observed: 01/30/2018 Status: F Source: [place] 2:52 PM [facility] REPOSITORY [facility] Medical Records Department [address] [place] [address] Discharge Summary 01/30/18 1423 MR#: [id number] Acct: [id number] Name: YENNI GIMENEZ Rep #: [id number] : 1950 67 From: Haven KOHLI PCP: Wong Berger Status: ADM IN Location: [place] [id number] <Haven Carlson - Last Filed: 01/30/18 14:40> Discharge Date and Diagnosis Date of Admission: 01/28/18 Date of Discharge: 01/30/18 - Primary Discharge Diagnosis Active and Suspected Problems 1. Acute hypoxic respiratory failure secondary to acute on chronic diastolic CHF 2. Leukocytosis-resolved. Suspect reactive. Infectious etiology ruled out. 3. Iron deficiency anemia 4. Indeterminate troponin 5. Hypokalemia 6. Lactic acidosis-resolved. - Secondary Discharge Diagnosis Chronic Problems HLD (hyperlipidemia) (Chronic) HTN (hypertension) (Chronic) PAD (peripheral artery disease) (Chronic) CAD (coronary artery disease) (Chronic) COPD (chronic obstructive pulmonary disease) (Chronic) Tobacco dependence (Chronic) CKD (chronic kidney disease) (Chronic) Leukocytosis (Chronic) Anemia (Chronic) BPH (benign prostatic hyperplasia) (Chronic) Hospital Course and Treatment Imaging Results: Diagnostic Data Chest X-Ray 01/30/18 08:16 IMPRESSION: Stable appearance of CHF. Progressive bibasilar atelectasis and/or infiltrate worse on the right side. Electronically Signed: Deven Hensley MD at 9:23 EDT Tel [phone], Service support , Operations: None Procedures: None Summary of Care Provided: Patient is a 67-year-old male admitted 01/28/18 due to shortness of breath. His past medical history includes CAD status post CABG/PCI, tobacco dependence, hypertension, hyperlipidemia, BPH, iron deficiency anemia, CKD, alcohol abuse. 1. Acute hypoxic respiratory failure secondary to acute on chronic diastolic CHF-chest x-ray on admission consistent with CHF. Patient required BiPAP on admission. Now stable on room air. Patient received IV Lasix during admission and will be discharged on home Bumex regimen of 2 mg twice daily. Walking pulse ox completed and oxygen remained 96% with ambulation. Repeat chest x-ray showed stable appearance of CHF. Patient educated on fluid and sodium restriction. He will continue outpatient follow-up with his internal audit director, Dr. Bonilla. Patient states he had recent echo at outside facility with reported normal ejection fraction. Records requested but were not able to be obtained. Patient will continue close follow up with internal audit director. 2. Leukocytosis-resolved. Infectious etiology ruled out. Suspect reactive secondary to #1. 3. Iron deficiency anemia-patient reports recent blood transfusion, iron transfusion and erythropoietin injection during recent admission to [facility]. Iron studies completed and confirm iron deficiency anemia. Patient was given to IV iron transfusions. Hemoglobin stable, 8.4. Continue outpatient follow-up with hematology. 4. Indeterminate troponin-EKG without evidence of ischemia. Troponin 0.07, 0.09, 0.08, 0.05. Suspect secondary to #1. Denies chest pain. 5. Lactic acidosis-lactic acid on admission 2.5. Do not suspect related to infection/sepsis. Repeat lactic acid 0.8. Suspect secondary to #1. 6. Hypokalemia-replaced IV and orally. BMP in 3 days at discharge. Followed by primary care physician. 7. Chronic kidney disease, suspected stage IV-creatinine 2.7 on admission. Unknown what patient's baseline is. Creatinine improved to 1.6. Patient will continue outpatient follow-up with nephrology as scheduled. 8. CAD-status post CABG/PCI. Most recent stents placed May 2017. Continue aspirin, statin, Plavix, beta-lesa. 9. Chronic COPD- no not suspect acute exacerbation. No audible wheezing noted on examination. 10. PAD-status post attempted intervention which was unable to be performed per . Continue aspirin, statin, Plavix. Home Pletal regimen discontinued due to known exacerbating of CHF. 11. Hyperlipidemia-continue statin. 12. Hypertension-stable, continue home regimen including Cardizem, hydralazine, metoprolol. 13. Tobacco dependence-current half pack per day smoker. Encourage smoking cessation. 14. BPH-continue home Flomax regimen. 15. Alcohol abuse-strongly encouraged alcohol cessation. General: Alert, Oriented x3, Cooperative, No apparent distress HEENT: Atraumatic, PERRLA, EOMI, Normocephalic Neck: Supple, No JVD, Negative Carotid Bruits Lungs: Clear to auscultation, Diminished Cardiovascular: Regular rate, Regular Rhythm, Normal S1, Normal S2, No murmurs Abdomen: Bowel Sounds Present, Soft, Non Tender, Non-Distended Extremities: No clubbing, No cyanosis, Edema - +2 BLLE Skin: No rashes, No breakdown Musculoskeletal: No Tenderness to Palpation of Joints or Extremities Neurological: Cranial nerves II-XII grossly intact, Neuro grossly intact Psych/Mental Status: Normal Affect, Appropriate Patient seen and examined prior to discharge. Physical assessment as noted above. Stable for discharge home with the follow-up recommendations as noted above. This patient was seen by SEUN Obregon under the supervision of Dr. Stark. Discharge Diet: Low fat/ Low Cholesterol, 8 Cup Fluid Restriciton, 2000 mg Sodium Diet Discharge Activity: Return to Normal Activity Call your doctor if you observe: Shortness of breath, Dizziness, Fainting spells, Chest pain, Increased palpitations (irregular heartbeat) Home Medications: Medications to take at Discharge Aspirin [Aspirin, Baby] 81 mg PO DAILY@0800 01/28/18 Bumetanide 2 mg PO BID 01/28/18 Clopidogrel Bisulfate [Plavix] 75 mg PO DAILY 01/28/18 Diltiazem HCl [Cartia Xt] 120 mg PO DAILY 01/28/18 Magnesium Oxide [Magnesium] 400 mg PO BID 01/28/18 Metoprolol Succinate 100 mg PO BID 01/28/18 Ropinirole HCl [Requip] 1 mg PO DAILY 01/28/18 Rosuvastatin Calcium [Crestor] 40 mg PO DAILY 01/28/18 Spironolactone 25 mg PO DAILY 01/28/18 Tamsulosin HCl [Flomax] 0.4 mg PO DAILY 01/28/18 hydrALAZINE [Apresoline] 50 mg PO TID 01/28/18 Ferrous Sulfate 325 mg PO BIDCM #60 tab 01/30/18 Ipratropium/Albuterol Sulfate [Duoneb] 3 ml INHALATION Q4H.RT #120 ampul.neb 01/30/18 Potassium Chloride [K-Dur] 40 meq PO BIDCM #120 tab 01/30/18 Following Prescrptions Were Given to Patient: Ipratropium/Albuterol Sulfate [Duoneb] 3 ml INHALATION Q4H.RT #120 ampul.neb Ferrous Sulfate 325 mg PO BIDCM #60 tab Potassium Chloride [K-Dur] 40 meq PO BIDCM #120 tab Primary Care Physician: Wong Berger NP-C [Primary Care Provider] - Please follow up with your Primary Care Physician in: 1 Week Please Follow Up With: Dr. Jeter - Kidney Doctor When: As scheduled, 02/24/18 @3:30PM Please Follow Up With: Dr. Velasquez - Hematology When: Call for appointment Please Follow Up With: Dr. Bonilla - Cardiology When: 1-2 Weeks Disposition: Home Minutes spent on discharge:: 35 Patient Condition:: Stable Medical Necessity - Tobacco Use Smoking Status: Current every day smoker Tobacco Use: Cigarettes Meaningful Use Info Meaningful Use Diagnoses (Choose all that apply): CHF - CHF HEATHER/ARB ordered at discharge?: No Reason HEATHER/ARB not ordered?: Worsening renal dysfunctn Documented LVEF (%): 0 - EF unknown. Reported normal by patient. <Chris Stark - Last Filed: 01/30/18 14:52> Discharge Date and Diagnosis - Secondary Discharge Diagnosis Chronic Problems HLD (hyperlipidemia) (Chronic) HTN (hypertension) (Chronic) PAD (peripheral artery disease) (Chronic) CAD (coronary artery disease) (Chronic) COPD (chronic obstructive pulmonary disease) (Chronic) Tobacco dependence (Chronic) CKD (chronic kidney disease) (Chronic) Leukocytosis (Chronic) Anemia (Chronic) BPH (benign prostatic hyperplasia) (Chronic) Hospital Course and Treatment Imaging Results: 01/30/18 08:16 CXR [Chest PA and Lateral] [RAD] AM (NON MEDS) Operations: None Procedures: None Summary of Care Provided: Patient seen and examined independently. I agree with the above note by the nurse practitioner. The patient is a 67 year old M presents with an acute exacerbation of heart failure. Patient has been previously evaluated at other hospitals and results of previous echocardiograms are unavailable at this time the patient reports a normal ejection fraction. Patient came in with a weight of 98.5 kg and the day of discharge he is 9.7 kg. He received IV Lasix. Patient will continue with Bumex as he was taking previously but also take an additional dose for a weight gain of 2 pounds in 1 day or 3 pounds in 1 week. Patient already has previously scheduled follow-up appointments with other specialist prior to this admission. [] Discharge Diet: Low fat/ Low Cholesterol, 6 Cup Fluid Restriction, 2000 mg Sodium Diet Discharge Activity: Return to Normal Activity Call your doctor if you observe: Shortness of breath, Dizziness, Fainting spells, Chest pain, Increased palpitations (irregular heartbeat) Disposition: Home Minutes spent on discharge:: 35 Patient Condition:: Stable Medical Necessity - Tobacco Use Smoking Status: Current every day smoker Tobacco Use: Cigarettes Meaningful Use Info Meaningful Use Diagnoses (Choose all that apply): CHF - CHF HEATHER/ARB ordered at discharge?: No Reason HEATHER/ARB not ordered?: Worsening renal dysfunctn Documented LVEF (%): 99 Code Visit Inpatient E AND M: [id number] Disch Hosp 01/30/18 1441 <Electronically signed by Haven KOHLI> Date Haven KOHLI 01/30/18 1452<Electronically signed by Chris Stark DO> Cosigner Signature (if applicable): Date Chris Stark DO CC: Wong Berger; SEUN Carlson; Chris Stark DO Signed DISCHARGE INSTRUCTION Observed: 01/30/2018 Status: F Source: [place] 2:23 PM [facility] REPOSITORY [facility] Medical Records Department [address] [place] [address] Instructions for Home/Discharge Instructions 01/30/18 1412 MR#: [id number] Acct: [id number] Name: YENNI GIMENEZ Rep #: [id number] : 1950 67 From: Haven KOHLI PCP: Wong Berger Status: ADM IN - Discharge Diagnoses Current Active Problems: Current Active and Chronic Problems Diastolic CHF (Acute) HLD (hyperlipidemia) (Chronic) HTN (hypertension) (Chronic) PAD (peripheral artery disease) (Chronic) CAD (coronary artery disease) (Chronic) COPD (chronic obstructive pulmonary disease) (Chronic) Tobacco dependence (Chronic) CKD (chronic kidney disease) (Chronic) Leukocytosis (Chronic) Anemia (Chronic) Respiratory failure with hypoxia (Acute) BPH (benign prostatic hyperplasia) (Chronic) You will use the following diet at home:: Cardiac, Fluid restricted (specify 2000 mls, 1500 mls) - 1500, Other - Low sodium Discharge Activity: Return to Normal Activity Call your doctor if you observe: Shortness of breath, Dizziness, Fainting spells, Chest pain, Increased palpitations (irregular heartbeat) Allergies/Adverse Reactions: Allergies irbesartan [From Avapro] Adverse Reaction (Verified 01/28/18 14:35) Other zolpidem [From Ambien] Adverse Reaction (Verified 01/28/18 14:35) Other Medications to take at Discharge Aspirin [Aspirin, Baby] 81 mg PO DAILY@0800 01/28/18 Bumetanide 2 mg PO BID 01/28/18 Clopidogrel Bisulfate [Plavix] 75 mg PO DAILY 01/28/18 Diltiazem HCl [Cartia Xt] 120 mg PO DAILY 01/28/18 Magnesium Oxide [Magnesium] 400 mg PO BID 01/28/18 Metoprolol Succinate 100 mg PO BID 01/28/18 Ropinirole HCl [Requip] 1 mg PO DAILY 01/28/18 Rosuvastatin Calcium [Crestor] 40 mg PO DAILY 01/28/18 Spironolactone 25 mg PO DAILY 01/28/18 Tamsulosin HCl [Flomax] 0.4 mg PO DAILY 01/28/18 hydrALAZINE [Apresoline] 50 mg PO TID 01/28/18 Ferrous Sulfate 325 mg PO BIDCM #60 tab 01/30/18 Ipratropium/Albuterol Sulfate [Duoneb] 3 ml INHALATION Q4H.RT #120 ampul.neb 01/30/18 Potassium Chloride [K-Dur] 40 meq PO BIDCM #120 tab 01/30/18 The following prescriptions were given: Ipratropium/Albuterol Sulfate [Duoneb] 3 ml INHALATION Q4H.RT #120 ampul.neb Ferrous Sulfate 325 mg PO BIDCM #60 tab Potassium Chloride [K-Dur] 40 meq PO BIDCM #120 tab Primary Care Physician: Wong Berger, SEUN [Primary Care Provider] - Please follow up with your Primary Care Physician in: 1 Week Please Follow Up With: Dr. Jeter - Kidney Doctor When: As scheduled, 02/24/18 @3:30PM Please Follow Up With: Dr. Velasquez - Hematology When: Call for appointment Please Follow Up With: Dr. Bonilla - Cardiology When: 1-2 Weeks Proposed Discharge Date: 01/30/18 01/30/18 1423 <Electronically signed by Haven KOHLI> Date Haven KOHLI CC: Wong Berger BASIC METABOLIC Collected: 01/30/2018 Status: F Source: [place] PROFILE (BMP) 5:35 AM [facility] REPOSITORY TYPE CODE TESTS RESULT OUT OF RANGE REFERENCE UNITS LAB L501.0100 74-106 mg/dL High GLU 144 Result Comment: Fasting Glucose result greater than or equal to 126 mg/dL suggests DIABETES MELLITUS per A.D.A. criteria. Please note revised GLUCOSE reference range effective 2017. LAB L501.1000 7-18 mg/dL High BUN 58 LAB L501.1100 0.70-1.30 mg/dL High CREAT,SERUM 1.62 Result Comment: The validity of the calculated GFR AND GFRAA in patients over 70 years has not been determined. Clinical correlation is essential. LAB L501.1110 >60 mL/min Low EST GFR 46 Result Comment: Non- GFR Calc LAB L501.1115 >60 mL/min Low EST GFR - AA 55 Result Comment: GFR Calc LAB L501.1255 ml/min Normal Estimated CRCL 41.94 LAB L501.1300 10-20 RATIO High BUN/CRE 35.8 LAB L501.2200 8.5-10 mg/dL Normal .1 CA 8.8 LAB L501.5300 136-14 mmol/L Normal 5 NA 139 LAB L501.5600 3.5-5. mmol/L Low 1 K 3.1 LAB L501.5900 98-107 mmol/L Normal CL 99 LAB L501.6100 21.0-3 mmol/L High 2.0 CO2 34.0 LAB L501.6200 5-15 Normal GAP 6 Performed By: #### L500.2500 #### [facility] [address] [place], [address] CBC-COMPLETE BLOOD CNT Collected: 01/30/2018 Status: F Source: [place] NO DIFF 5:35 AM [facility] REPOSITORY TYPE CODE TESTS RESULT OUT OF RANGE REFERENCE UNITS LAB L100.1000 4.4-11.0 K/mm3 High WBC 11.4 LAB L100.1200 4.6-6.2 M/mm3 Low RBC 3.27 LAB L100.1300 13.0-16.5 g/dl Low HGB 8.4 LAB L100.1400 40-54 % Low HCT 28.9 LAB L100.1500 80-94 fL Normal MCV 88.4 LAB L100.1600 27.0-32.0 pg Low MCH 25.7 LAB L100.1700 32-36 g/gl Low MCHC 29.1 LAB L100.1810 11.6-14.6 % High RDW CV 22.1 LAB L100.1820 35.1-43.9 fl High RDW SD 65.5 LAB L100.1900 150-450 K/mm3 Normal PLT 187 LAB L100.2000 6.2-12.0 fl Normal MPV 10.2 Performed By: #### L100.0500, L100.4500 #### [facility] [address] [place], [address] DIFFERENTIAL COMMENT Collected: 01/30/2018 Status: F Source: [place] 5:35 AM [facility] REPOSITORY TYPE CODE TESTS RESULT OUT OF RANGE REFERENCE UNITS LAB L100.4500 Normal SMEAR COMMENT COMMENT Result Comment: SLIDE SCANNED - 1+ ANISO NOTED. Performed By: #### L100.0500, L100.4500 #### [facility] [address] [place], [address] CHEST PA AND LATERAL Observed: 01/30/2018 Status: F Source: [place] 12:00 AM [facility] REPOSITORY [facility] Imaging Services [address] [place] [address] Chest PA and Lateral MR#: [id number] Acct: [id number] Name: YENNI GIMENEZ Rep #: [id number] : 1950 M 67 From: Deven Hensley MD PCP: Wong Berger Status: ADM IN Study: Chest PA and Lateral Date of Exam: 01/30/18 Exam# [id number] Ordering Dr: Haven Carlson STUDY: X-RAY CHEST REASON FOR EXAM: Male, 67 years old. CHF. TECHNIQUE: PA and lateral views of the chest. COMPARISON: Comparison is made with prior study dated January 29, 2018. FINDINGS: EKG electrodes are seen. Stable appearance of the vascular congestion mild degree of CHF. Increased atelectasis and or infiltrate at the lung bases worse on the right side. Small bilateral pleural effusions slightly worse on the right side. Sternal cerclage wires and vascular clips are present from a prior sternotomy and coronary artery bypass graft procedure (CABG). Normal mediastinum and justyn. Normal visualized pulmonary arteries. There is atherosclerotic calcification of the aortic arch with tortuosity. There are diffuse degenerative changes of the visualized thoracic spine. Normal visualized ribs, clavicles, and shoulders. There is no demonstrated abnormality of the visualized soft tissue structures of the upper abdomen. RAD/Chest PA and Lateral IMPRESSION: Stable appearance of CHF. Progressive bibasilar atelectasis and/or infiltrate worse on the right side. Electronically Signed: Deven Hensley MD at 9:23 EDT Tel [phone], Service support , CC: Wong Berger; SEUN Carlson [employer] Supervisor: Signed TROPONIN-I Collected: 01/29/2018 Status: F Source: [place] 5:20 AM [facility] REPOSITORY Order Comment: 'TROP' Serial specimen #1, #2, #3, or #4: 4 TYPE CODE TESTS RESULT OUT OF RANGE REFERENCE UNITS LAB L501.4010 <0.06 ng/mL Normal 0.05 TROPONIN-I Result Comment: TROPONIN-I EXPECTED VALUES <0.05 NEGATIVE 0.06 - 0.59 AT RISK OF SC > OR = 0.60 SUGGEST SC Performed By: #### L501.4010 #### [facility] [address] [place], [place], [id number] CBC-COMPLETE BLOOD CNT Collected: 01/29/2018 Status: F Source: [place] NO DIFF 5:20 AM [facility] REPOSITORY TYPE CODE TESTS RESULT OUT OF RANGE REFERENCE UNITS LAB L100.1000 4.4-11.0 K/mm3 Normal WBC 7.3 LAB L100.1200 4.6-6.2 M/mm3 Low RBC 2.99 LAB L100.1300 13.0-16.5 g/dl Low HGB 7.8 LAB L100.1400 40-54 % Low HCT 26.0 LAB L100.1500 80-94 fL Normal MCV 87.0 LAB L100.1600 27.0-32.0 pg Low MCH 26.1 LAB L100.1700 32-36 g/gl Low MCHC 30.0 LAB L100.1810 11.6-14.6 % High RDW CV 21.9 LAB L100.1820 35.1-43.9 fl High RDW SD 65.1 LAB L100.1900 150-450 K/mm3 Normal PLT 176 LAB L100.2000 6.2-12.0 fl Normal MPV 11.3 Performed By: #### L100.0500, L100.4500 #### [facility] [address] [facility] [place], [place], [address] DIFFERENTIAL COMMENT Collected: 01/29/2018 Status: F Source: [place] 5:20 AM [facility] REPOSITORY TYPE CODE TESTS RESULT OUT OF RANGE REFERENCE UNITS LAB L100.4500 Normal SMEAR COMMENT SCAN Result Comment: ANISOCYTOSIS 1+ MICROCYTOSIS 1+ HYPOCHROMIA 1+ POLYCHROMASIA 1+ Performed By: #### L100.0500, L100.4500 #### [facility] [address] [place], [address] BASIC METABOLIC Collected: 01/29/2018 Status: F Source: [place] PROFILE (BMP) 5:20 AM [facility] REPOSITORY TYPE CODE TESTS RESULT OUT OF RANGE REFERENCE UNITS LAB L501.0100 74-106 mg/dL High GLU 365 Result Comment: Glucose result greater than or equal to 200 mg/dL suggests DIABETES MELLITUS per A.D.A. criteria. Please note revised GLUCOSE reference range effective 2017. LAB L501.1000 7-18 mg/dL High BUN 75 LAB L501.1100 0.70-1.30 mg/dL High CREAT,SERUM 2.28 Result Comment: The validity of the calculated GFR AND GFRAA in patients over 70 years has not been determined. Clinical correlation is essential. LAB L501.1110 >60 mL/min Low EST GFR 31 Result Comment: Non- GFR Calc LAB L501.1115 >60 mL/min Low EST GFR - AA 37 Result Comment: GFR Calc LAB L501.1255 ml/min Normal Estimated CRCL 29.80 LAB L501.1300 10-20 RATIO High BUN/CRE 32.9 LAB L501.2200 8.5-10 mg/dL Low .1 CA 8.2 LAB L501.5300 136-14 mmol/L Normal 5 NA 138 LAB L501.5600 3.5-5. mmol/L Low 1 K alert 2.6 Result Comment: Critical Result(s) Called at: 08:08:21 01/29/2018 by: Rashad Rogers RN LAB L501.5900 98-107 mmol/L Normal CL 99 LAB L501.6100 21.0-32.0 mmol/L Normal CO2 27.0 LAB L501.6200 5-15 Normal GAP 12 Performed By: #### L500.2500, L501.5200 #### [facility] [address] [place], [place], [id number] MAGNESIUM Collected: 01/29/2018 Status: F Source: [place] 5:20 AM [facility] REPOSITORY TYPE CODE TESTS RESULT OUT OF RANGE REFERENCE UNITS LAB L501.5200 1.6-2.6 mg/dL High MG 2.8 Performed By: #### L500.2500, L501.5200 #### [facility] [address] [place], [place], [address] IRON+IRON BINDING Collected: 01/29/2018 Status: F Source: [place] CAPACITY 5:15 AM [facility] REPOSITORY TYPE CODE TESTS RESULT OUT OF RANGE REFERENCE UNITS LAB L503.6075 250-450 ug/dL TIBC Normal 353 LAB L503.6150 65-175 ug/dL Low IRON 15 LAB L503.6250 15.0-55.0 % Low IRON SATURATION 4.2 Performed By: #### L503.6030, L503.6550 #### [facility] [address] [place], [place], [address] FERRITIN Collected: 01/29/2018 Status: F Source: [place] 5:15 AM [facility] REPOSITORY TYPE CODE TESTS RESULT OUT OF RANGE REFERENCE UNITS LAB L503.6550 26-388 ng/mL Normal FERRITIN 89 Performed By: #### L503.6030, L503.6550 #### [facility] [address] [place], [address] CHEST 1 VIEW Observed: 01/29/2018 Status: F Source: [place] (PORTABLE) 12:00 AM [facility] REPOSITORY [facility] Imaging Services [address] [place] [address] Chest 1 View (Portable) MR#: [id number] Acct: [id number] Name: YENNI GIMENEZ Rep #: [id number] : 1950 M 67 From: Stephanie Martínez MD PCP: Wong Berger Status: ADM IN Study: Chest 1 View (Portable) Date of Exam: 01/29/18 Exam# [id number] Ordering Dr: Robyn Workman DO STUDY: X-RAY CHEST REASON FOR EXAM: Male, 67 years old. Cough TECHNIQUE: Single AP portable view of the chest. COMPARISON: January 28, 2018 chest x-ray FINDINGS: There is a hazy appearance on the bilateral lower lobes. There is blunting of the costophrenic angle. There are lesser overall thickened interstitial markings. There is no demonstrated pleural abnormality. Sternal cerclage wires are present from a prior sternotomy. Normal mediastinum and justyn. Normal visualized pulmonary arteries. Normal visualized aortic arch and descending thoracic aorta. There are diffuse degenerative changes of the visualized thoracic spine. Normal visualized ribs, clavicles, and shoulders. There is no demonstrated abnormality of the visualized soft tissue structures of the upper abdomen. RAD/Chest 1 View (Portable) IMPRESSION: Interval improvement in the interstitial edema. Findings suspicious for persistent layering effusions. There is right lower lobe atelectasis and a potential small infiltrate. Mild cardiomegaly. Electronically Signed: Stephanie Martínez MD at 8:36 EDT Tel , Service support , CC: Wong Berger; Robyn Workman DO Specialty Manufacturing Supervisor: Signed LACTIC ACID Collected: 01/28/2018 Status: F Source: [place] 8:25 PM [facility] REPOSITORY TYPE CODE TESTS RESULT OUT OF RANGE REFERENCE UNITS LAB L503.6005 0.4-2.0 mmol/L Normal LACTIC ACID 0.8 Performed By: #### L503.6005 #### [facility] [address] [place], [address] TROPONIN-I Collected: 01/28/2018 Status: F Source: [place] 7:00 PM [facility] REPOSITORY Order Comment: 'TROP' Serial specimen #1, #2, #3, or #4: 2 TYPE CODE TESTS RESULT OUT OF RANGE REFERENCE UNITS LAB L501.4010 <0.06 ng/mL High 0.09 TROPONIN-I Result Comment: TROPONIN-I EXPECTED VALUES <0.05 NEGATIVE 0.06 - 0.59 AT RISK OF SC > OR = 0.60 SUGGEST SC Performed By: #### L501.4010 #### [facility] [address] [place], [address] HISTORY AND PHYSICAL Observed: 01/28/2018 Status: F Source: [place] EXAM 6:33 PM [facility] REPOSITORY [facility] Medical Records Department [address] [place] [id number] History and Physical 01/28/18 1634 MR#: [id number] Acct: [id number] Name: YENNI GIMENEZ Rep #: [id number] : 1950 67 From: Haven KOHLI PCP: Wong Bergre Status: ADM IN Y Location: [place] [address] ADDENDUM by Robyn Workman DO on 01/28/18 at 1832 Code Visit Patient was seen and examined independently of Haven Carlson today, he came to the emergency room with extreme shortness of breath and severe conversational dyspnea. The shortness of breath became very severe today, he denied any chest action will chest pain, patient was recently discharged from the hospital in [place] after treatment for pneumonia. Patient finished antibiotic course a few days ago. Patient's also stated that the patient has a history of elevated white blood cell count and he is due to see a supervisor trust accounts concerning this. Patient has multiple other medical problems including COPD, chronic anemia chronic kidney disease, congestive heart failure, and coronary artery disease. There are no records at this hospital concerning the patient except for today's records. Patient was placed on BiPAP on arrival, chest x-ray was obtained which showed diffuse infiltrates indicative of just of heart failure, labs were obtained which were abnormal for an elevated creatinine of 2.7, BUN was 78, troponin was 0.07, and the patient's white blood cell count was 29.1. Patient's hemoglobin was 9.1. On examination, patient had expiratory wheezes bilaterally and decreased breath sounds at the bases bilaterally, heart rate and rhythm was regular, patient has +2-3 mm pitting edema of both lower legs, patient was alert and appropriate on BiPAP.. There are also scattered expiratory rhonchi bilaterally. Patient was able to carry on a conversation on the BiPAP, emergency room physician stated that the patient improved greatly after the administration of Lasix, IV nitroglycerin, and aerosol treatment, and BiPAP. Patient will be admitted to PCU for acute congestive heart failure believed to be diastolic in nature and acute hypoxic respiratory failure. Patient will be treated with IV Lasix and monitored, he will be maintained on a nitroglycerin drip for now, cardiac enzymes will be cycled, we will attempt to obtain records from his prior hospitalization in [place] and possibly [place]- patient was hospitalized at [facility] in [place] last year. I have reviewed Haven Carlson's history and physical and medical plan of care and endorse both Inpatient E AND M: [id number] Init Hosp L3 01/28/18 9971 <Electronically signed by Robyn Workman DO> Date Robyn Workman DO cc: Wong Berger; SEUN Carlson; Robyn Teresa DO * Signed Problem List (1) Diastolic CHF Status: Acute Qualifiers: Heart failure chronicity: acute on chronic Qualified Code(s): I50.33 - Acute on chronic diastolic (congestive) heart failure (2) HLD (hyperlipidemia) Status: Chronic (3) HTN (hypertension) Status: Chronic (4) PAD (peripheral artery disease) Status: Chronic (5) CAD (coronary artery disease) Status: Chronic (6) COPD (chronic obstructive pulmonary disease) Status: Chronic (7) Tobacco dependence Status: Chronic (8) CKD (chronic kidney disease) Status: Chronic Qualifiers: Chronic kidney disease stage: stage 3 (moderate) Qualified Code(s): N18.3 - Chronic kidney disease, stage 3 (moderate) (9) Leukocytosis Status: Chronic (10) Anemia Status: Chronic (11) Respiratory failure with hypoxia Status: Acute (12) BPH (benign prostatic hyperplasia) Status: Chronic History of Present Illness Date of Admission: 01/28/18 Chief Complaint: Shortness of breath. The patient is a 67 year old M who presents to the emergency room with shortness of breath which began rather suddenly earlier today. Patient states he has chronic shortness of breath but today felt like he was struggling to breathe. Patient states he was recently admitted 1 week ago to [facility] where he was treated for pneumonia. Patient reports increase in lower extremity edema. He states he weighs himself daily and has not noted an increase in weight. Patient notes chronic cough with clear sputum production. Denies fever, chills. Denies chest pain. at bedside states that patient has had frequent admissions over the past year and a half due to congestive heart failure and respiratory failure. Patient follows with internal audit director in [place] and we have no prior records available at this time. Patient states he believes his ejection fraction is normal. He reports history of CAD status post CABG and stents. He states his most recent stent placement was in May [address] [facility] in [place]. He states he has had increase in lower extremity edema following failed attempt at stent placement for PAD. He is scheduled to follow- up with hematology for leukocytosis of unclear etiology. His other past medical history includes D, tobacco dependence, hypertension, hyperlipidemia, BPH, anemia, CKD. Past Medical History Past Medical History (Chronic Problems): Chronic Problems HLD (hyperlipidemia) (Chronic) HTN (hypertension) (Chronic) PAD (peripheral artery disease) (Chronic) CAD (coronary artery disease) (Chronic) COPD (chronic obstructive pulmonary disease) (Chronic) Tobacco dependence (Chronic) CKD (chronic kidney disease) (Chronic) Leukocytosis (Chronic) Anemia (Chronic) BPH (benign prostatic hyperplasia) (Chronic) Allergies irbesartan [From Avapro] Adverse Reaction (Verified 01/28/18 14:35) Other zolpidem [From Ambien] Adverse Reaction (Verified 01/28/18 14:35) Other Home Medications: Ambulatory Orders Medication Instructions Recorded Aspirin [Aspirin, Baby] 81 mg PO DAILY@0800 01/28/18 Surgical History: coronary bypass surgery, tonsillectomy Psychiatric History: No pertinent psych hx Lives: Spouse/ Significant Other Smoking Status: Current every day smoker - Half pack per day Tobacco Use: Cigarettes Alcohol: Rare Drugs: None - *Family History Maternal History Items: No pertinent history Paternal History Items: No pertinent history Review of Systems Constitutional: Denies: Chills, Fever, Weight Change HEENT: Denies: Head Aches, Sinus Congestion, Sinus Drainage Cardiovascular: Reports: Edema. Denies: Chest Pain, Palpitations, Syncope Respiratory: Reports: Cough, Shortness of Breath, Sputum production - Clear, Wheezing Gastrointestinal: Denies: Abdominal Pain, Constipation, Diarrhea, Nausea, Vomiting Genitourinary: Denies: Dysuria Musculoskeletal: Denies: Joint Pain, Joint Tenderness Skin: Denies: Rash, Wounds Neurological: Denies: Numbness, Tingling, Focal weakness Psychiatric: Denies: Anxiety, Depression, Homicidal Ideations, Suicidal Ideations Hematologic/ Lymphatic: Denies: Easy Bruising, Easy Bleeding VTE Information - Inpt Only VTE Present on Admission: No VTE Mechan Device Prophylaxis: None VTE Pharm Prophylaxis ordered?: Yes Patient Problems: Active and Suspected Problems Diastolic CHF (Acute) Respiratory failure with hypoxia (Acute) - Physical Exam General: Alert, Oriented x3, - - Moderate respiratory distress HEENT: Atraumatic, PERRLA, EOMI, Normocephalic Neck: Supple, No JVD, Negative Carotid Bruits Lungs: Diminished, Rhonchi Cardiovascular: Regular rate, Regular Rhythm, Normal S1, Normal S2, No murmurs Abdomen: Bowel Sounds Present, Soft, Non Tender, Non-Distended, Obese Extremities: No clubbing, No cyanosis, Edema - +3 bilateral lower extremities Skin: No rashes, No breakdown Musculoskeletal: No Tenderness to Palpation of Joints or Extremities Neurological: Cranial nerves II-XII grossly intact, Neuro grossly intact Psych/Mental Status: Normal Affect, Appropriate Vital Signs Temp Pulse Resp BP Pulse Ox 98.6 F 79 21 H 135/50 H 98 01/28/18 14:35 01/28/18 15:58 01/28/18 15:58 01/28/18 15:58 01/28/18 15:59 Oxygen Flow Rate (L/min) 4 Oxygen Delivery Method Bi-pap Weight: 98.5 kg Body Mass Index (BMI) 34.0 Laboratory Tests Past 24 Hrs WBC 29.1 H RBC 3.62 L Hgb 9.1 L Hct 31.5 L MCV 87.0 MCH 25.1 L MCHC 28.9 L WBC RBC Hgb Hct MCV MCH MCHC RDW RDW Differential Assessment/Plan Active and Suspected Problems Diastolic CHF (Acute) Respiratory failure with hypoxia (Acute) 1. Acute hypoxic respiratory failure secondary to acute on chronic diastolic CHF-chest x-ray on admission consistent with CHF. Patient currently on BiPAP FiO2 40%. Patient received IV Lasix in ER and was started on nitro drip. Continue nitro gtt. IV lasix 60mg Q8hr. Strict I AND O. Daily weight. Obtain records from outside facility. If echo not completed recently, repeat. Trend enzymes. Heather wraps bilateral lower extremities. Continue supplemental oxygen to maintain O2 at or above 90%. Repeat chest x-ray in a.m. 2. Leukocytosis-etiology unclear. Infectious etiology not suspected. Per patient this is somewhat chronic in nature and patient is to follow-up with supervisor trust accounts. 3. Normocytic hypochromic anemia-patient reports recent blood transfusion, iron transfusion and erythropoietin injection during recent admission to [facility]. Monitor CBC. Obtain records to see if iron studies have been completed. 4. Indeterminate troponin-EKG without evidence of ischemia. Troponin 0.07. Trend enzymes. Suspect secondary to #1. 5. Lactic acidosis-lactic acid on admission 2.5. Do not suspect related to infection/sepsis. Repeat lactic acid. Suspect secondary to #1. 6. Chronic kidney disease, suspected stage IV-creatinine 2.7 on admission. Unknown what patient's baseline is. Trend BMP. Patient is following with nephrology as outpatient. 7. CAD-status post CABG/PCI. Most recent stents placed May 2017. Continue aspirin, statin, Plavix, beta-lesa. 8. Chronic COPD- no not suspect acute exacerbation. No audible wheezing noted on examination. Albuterol and DuoNeb aerosols. 9. PAD-status post attempted intervention which was unable to be performed per . Continue aspirin, statin, Plavix. 10. Hyperlipidemia-continue statin. 11. Hypertension-stable, continue home regimen including Cardizem, hydralazine, metoprolol. 12. Tobacco dependence-current half pack per day smoker. Encourage smoking cessation. Nicotine replacement patch if desired. 13. BPH-continue home Flomax regimen. DVT prophylaxis-heparin subcu. This patient was seen by SEUN Obregon under the supervision of Dr. Workman. 01/28/18 1718 <Electronically signed by Haven KOHLI> Date Haven KOHLI 01/28/18 1824<Electronically signed by Robyn Workman DO> Cosigner Signature: Date (if applicable) Robyn Workman DO CC: Wong Berger; SEUN Carlson; Robyn Workman DO Signed Observed: 01/28/2018 Status: F Source: [place] CULTURE, BLOOD (WB) 4:20 PM [facility] REPOSITORY No growth in 5 days. Performed By: #### M200.1000 #### [facility] [address] [place], [address] EMERGENCY DEPARTMENT Observed: 01/28/2018 Status: F Source: [place] SUMMARY 4:16 PM [facility] REPOSITORY [facility] Medical Records Department [address] [place] [address] Emergency Department Summary 01/28/18 1609 MR#: [id number] Acct: [id number] Name: YENNI GIMENEZ Rep #: [id number] : 1950 67 From: Nickolas Mccollum MD PCP: Wong Berger [employer] Status: REG ER - ER Visit Summary Date of Service: 01/28/18 Chief Complaint: Shortness of breath History of Present Illness: The patient is a 67 M who presents with prompt onset of shortness of breath of several hours prior to presentation. He states he cannot breathe. He has never been this bad. He nods to history of COPD, congestive heart failure, hypertension and high cholesterol. He acknowledges he has history of coronary disease status post bypass surgery. He denies any chest pain. He denies increased swelling of his legs. He denies increased orthopnea and denies PND. He does report a cough. He denies fever, chills night sweats. He denies any visual, ocular auditory symptoms. He denies abdominal pain, nausea, vomiting or diarrhea. He denies dysuria, frequency, urgency or hematuria. He denies myalgias arthralgias or back pain. He denies rash or abscess. He denies headache or generalized weakness. History he denies polyuria, polydipsia or polyphagia. He denies bruising easily. Denies angioedema or urticaria. Patient's history is limited to the fact that he is in respiratory distress in a tripod position. Physical Examination: Blood pressure 163/112, temperature 98.6, heart rate 87, respiratory 30 and pulse ox 91% on mask. Nurse protocol was initiated and he was administered a DuoNeb. Head is atraumatic nor cephalic. He has a cushingoid appearance. Unable to visualize oropharynx secondary to fact he is on a mask which he is dependent on at this time because otherwise he is hypoxic. Trachea is midline. There is no stridor. There is no cervical lymphadenopathy. Heart is regular difficult to hear heart tones or murmurs secondary to respiratory sounds. He has rhonchi and wheezing heard throughout. There is retractions. He is diaphoretic. Abdomen is prominent soft nontender with diminished bowel sounds. He has bilateral 3-4+ pitting edema of the lower extremities. Unable to palpate distal pulses secondary to the amount of edema. He has venous stasis dermatitis noted. He is alert and oriented. Neuro exam was limited secondary to acuity of his respiratory distress. Test Results: EKG interpreted by me as a sinus rhythm with first-degree AV block and PVCs. Rate 92. Chest x-ray reveals cardiomegaly and CHF on a single portable view. White count is 29.1 thousand with an H AND H 9.1 and 31.5. There are 72% segs and no bands. Electrolyte panels marked for BUN and creatinine of 78 and 2.77. Coags normal. Troponin is slightly elevated 0.07 and lactate elevated 2.5. It is my opinion that the lactate is elevated secondary to his hypoxia and respiratory distress. This is not secondary to sepsis. Believe his white count is secondary to stress from his respiratory distress. Cultures were obtained, however. Emergency Department Course and Treatment: With abrupt onset shortness of breath with history of COPD and CHF need to consider pulmonary embolus, exacerbation COPD, pulmonary edema. He was placed on BiPAP and a blood gas was obtained. Blood gas revealed no acid-base disturbance. There is a significant AA gradient. In light of chest x-ray findings he was given Lasix 40 mg and placed on a nitro drip for preload reduction. Treatment Plan: PCU stepdown Disposition: Full admission Impression: 1. Respiratory failure with hypoxia 2. Pulmonary edema 3. Elevated troponin probably secondary to congestive heart failure 4. Anemia 5. Renal failure 6. Lactic acidosis This note was generated with [employer] dictation software. It may contain incorrect words, spelling, and punctuation that were not noted in review of the chart prior to signing ED Disposition - Plan for ED Patient: Chief Complaint: Shortness of Breath Referrals: Wong Berger, BARREL [employer] OPERATOR [facility] [Primary Care Provider] - What to do if you have Problems For any increased pain, shortness of breath, bleeding, nausea or vomiting, chest pain, or any unexpected problems, contact your Primary Care Provider. Call [facility] ([phone]) or report to the closest Emergency Room. Call 911 if necessary. 01/28/18 3065 <Electronically signed by Nickolas Mccollum MD> Date Nickolas Mccollum MD Cosigner Signature (If Indicated): Date CC: Wong Berger BLOOD GASES BY CPS Collected: 01/28/2018 Status: F Source: [place] 3:54 PM [facility] REPOSITORY TYPE CODE TESTS RESULT OUT OF RANGE REFERENCE UNITS LAB L9000.9990 Normal BLD GAS TYPE ART LAB L9001.1000 Normal SITE R Radial LAB L9001.1010 Normal MARY TEST NEG LAB L9001.1050 O2 Normal Delivery Dev Bi / C PAP LAB L9001.1070 RR Normal 14 LAB L9001.1074 Normal FI02 50 LAB L9001.1088 Normal IPAP 12 LAB L9001.1090 Normal EPAP 8 LAB L9001.1104 Normal Results To ED LAB L9001.1105 Normal Time Given 1554 LAB L9001.1110 7.35-7.45 pH Normal - I-STAT 7.43 LAB L9001.1210 35-45 mmHg Normal pCO2 - ISTAT 42.0 LAB L9001.1310 75-100 mmHG High PO2 I-STAT 151 LAB L9001.2300 22-26 mmol/L High HCO3 ISTAT 27.7 LAB L9001.2400 -2 to +2 mmol/L High BE ISTAT 3 LAB L9001.2415 mmol/L Normal TOTAL CO2 29 ISTAT LAB L9001.2425 95-99 % Normal SO2 ISTAT 99 Performed By: #### L9000.0800 #### [facility] Point of Care [address] [place] [address] CHEST 1 VIEW Observed: 01/28/2018 Status: F Source: [place] (PORTABLE) 3:00 PM [facility] REPOSITORY [facility] Imaging Services [address] [place] [address] Chest 1 View (Portable) MR#: [id number] Acct: [id number] Name: YENNI GIMENEZ Rep #: [id number] : 1950 M 67 From: Stephanie Martínez MD PCP: Wong Berger Status: REG ER Study: Chest 1 View (Portable) Date of Exam: 01/28/18 Exam# [id number] Ordering Dr: Nickolas Mccollum MD STUDY: X-RAY CHEST REASON FOR EXAM: Male, 67 years old. Respiratory failure TECHNIQUE: Single x 2 AP portable view of the chest. The right part of the chest is partially out of the field of view. COMPARISON: December 29, 2010 FINDINGS: Since prior, there is partial visualization of blunting of the right costophrenic angle. The right costophrenic angle is partially out of the field of view. 01/28/2018 pattern of increased interstitial markings blunting of the costophrenic angles. Sternal cerclage wires are present from a prior sternotomy. Normal mediastinum and justyn. Normal visualized pulmonary arteries. There is atherosclerotic calcification of the aortic arch with tortuosity. There are diffuse degenerative changes of the visualized thoracic spine. Normal visualized ribs, clavicles, and shoulders. There is no demonstrated abnormality of the visualized soft tissue structures of the upper abdomen. RAD/Chest 1 View (Portable) IMPRESSION: Limited study. Findings suspicious for pulmonary edema bilateral effusions. Recommend repeating the study with improved technique when appropriate. Electronically Signed: Stephanie Martínez MD at 16:40 EDT Tel , Service support , CC: Wong Berger; Nickolas Mccollum MD Specialty Manufacturing Supervisor: Signed CBC W/DIFF, AUTOMATED Collected: 01/28/2018 Status: C Source: [place] 2:51 PM [facility] REPOSITORY TYPE CODE TESTS RESULT OUT OF RANGE REFERENCE UNITS LAB L100.1000 4.4-11.0 K/mm3 High WBC 29.1 LAB L100.1200 4.6-6.2 M/mm3 Low RBC 3.62 LAB L100.1300 13.0-16.5 g/dl Low HGB 9.1 LAB L100.1400 40-54 % Low HCT 31.5 LAB L100.1500 80-94 fL Normal MCV 87.0 LAB L100.1600 27.0-32.0 pg Low MCH 25.1 LAB L100.1700 32-36 g/gl Low MCHC 28.9 LAB L100.1810 11.6-14.6 % High RDW CV 22.7 LAB L100.1820 35.1-43.9 fl High RDW SD 67.5 LAB L100.1900 150-450 K/mm3 Normal PLT 253 LAB L100.2000 6.2-12.0 fl Normal MPV 10.4 LAB L100.2100 47-70 % High NEUT% 72.3 LAB L100.2200 19-41 % Low LY% 14.3 LAB L100.2300 0-10 % High MONO% 12.4 LAB L100.2400 0-5 % Normal EO% 0.6 LAB L100.2500 0-1 % Normal BASO% 0.0 LAB L100.2550 0.0-0.9 % Normal IM GRAN % 0.400 Result Comment: IG% - Immature Granulocytes (promyelocytes, myelocytes and metamyelocytes) > 1% indicates that a LEFT SHIFT is Present. LAB L100.2620 2.0-7.7 X10 3/uL High Absolute Neut 21.0 LAB L100.2720 0.83-4.51 X10 3/ul Normal Absolute Lymph 4.16 LAB L100.4500 Normal SMEAR COMMENT SCANNED Result Comment: LEUKOCYTOSIS NOTED NEUTROPHILIA NOTED LAB L100.7300 Normal 1+ ANISO LAB L100.9900 Normal Reviewed PATH REV Result Comment: Neutrophilic leukocytosis. Normocytic anemia. Clinical correlation necessary. Tonio Mccray M.D. 01/30/18 AMENDED REPORT 01/30/18 1027 PATH REV previously reported as: February Performed By: #### L100.0100 #### [facility] [address] [place], [place], [address] PROTHROMBIN TIME W/INR Collected: 01/28/2018 Status: F Source: [place] 2:51 PM [facility] REPOSITORY TYPE CODE TESTS RESULT OUT OF RANGE REFERENCE UNITS LAB L300.4150 11.7-14.9 SECONDS Normal PROTIME 12.7 LAB L300.4200 Normal INR 1.0 Performed By: #### L300.3900, L300.4310 #### [facility] [address] [place], [place], [address] PARTIAL THROMBOPLAST Collected: 01/28/2018 Status: F Source: [place] TIME 2:51 PM [facility] REPOSITORY TYPE CODE TESTS RESULT OUT OF REFERENCE UNITS RANGE LAB L300.4310 24.1-36.2 Seconds Low PTT 21.3 Performed By: #### L300.3900, L300.4310 #### [facility] [address] [place], [address] COMPREHENSIVE METABOLIC Collected: 01/28/2018 Status: F Source: [place] PROFIL 2:51 PM [facility] REPOSITORY Order Comment: 'TROP' Serial specimen #1, #2, #3, or #4: 1 TYPE CODE TESTS RESULT OUT OF RANGE REFERENCE UNITS LAB L501.0100 74-106 mg/dL High GLU 231 Result Comment: Glucose result greater than or equal to 200 mg/dL suggests DIABETES MELLITUS per A.D.A. criteria. Please note revised GLUCOSE reference range effective 2017. LAB L501.1000 7-18 mg/dL High BUN 78 LAB L501.1100 0.70-1.30 mg/dL High CREAT,SERUM 2.77 Result Comment: The validity of the calculated GFR AND GFRAA in patients over 70 years has not been determined. Clinical correlation is essential. LAB L501.1110 >60 mL/min Low EST GFR 25 Result Comment: Non- GFR Calc LAB L501.1115 >60 mL/min Low EST GFR - AA 30 Result Comment: GFR Calc LAB L501.1255 ml/min Normal Estimated CRCL 24.53 LAB L501.1300 10-20 RATIO High BUN/CRE 28.2 LAB L501.1500 6.4-8. g/dL Normal 2 T PROT 6.9 LAB L501.1800 3.2-5. g/dL Normal 0 ALB 3.4 LAB L501.1950 2.2-4. g/dL Normal 2 GLOB 3.5 LAB L501.2000 0.9-2. RATIO Normal 4 A/G 1.0 LAB L501.2200 8.5-10 mg/dL Low .1 CA 8.4 LAB L501.4100 15-37 U/L Normal AST 30 LAB L501.4305 45-117 U/L Normal ALK P 74 LAB L501.4405 16-61 U/L Normal ALT 47 LAB L501.4600 0.20-1 mg/dL Normal .00 T BILI 0.50 LAB L501.5300 136-14 mmol/L Normal 5 NA 136 LAB L501.5600 3.5-5. mmol/L Normal 1 K 4.2 LAB L501.5900 98-107 mmol/L Normal CL 101 LAB L501.6100 21.0-3 mmol/L Normal 2.0 CO2 26.0 LAB L501.6200 5-15 Normal GAP 9 Performed By: #### L500.4050, L501.4010 #### [facility] [address] [place], [place], [address] TROPONIN-I Collected: 01/28/2018 Status: F Source: [place] 2:51 PM [facility] REPOSITORY Order Comment: 'TROP' Serial specimen #1, #2, #3, or #4: 1 TYPE CODE TESTS RESULT OUT OF RANGE REFERENCE UNITS LAB L501.4010 <0.06 ng/mL High 0.07 TROPONIN-I Result Comment: TROPONIN-I EXPECTED VALUES <0.05 NEGATIVE 0.06 - 0.59 AT RISK OF SC > OR = 0.60 SUGGEST SC Performed By: #### L500.4050, L501.4010 #### [facility] [address] [place], [place], [address] LACTIC ACID Collected: 01/28/2018 Status: F Source: [place] 2:51 PM [facility] REPOSITORY Order Comment: Yes/No query for Sepsis Lactate Rule Y TYPE CODE TESTS RESULT OUT OF REFERENCE UNITS RANGE LAB L503.6005 0.4-2.0 mmol/L High LACTIC ACID 2.5 Result Comment: Critical Result(s) Called at: 15:44:46 01/28/2018 by: Jordana YU Performed By: #### L503.6005 #### [facility] [address] [place], [address] Observed: 01/28/2018 Status: F Source: [place] CULTURE, BLOOD (WB) 2:51 PM [facility] REPOSITORY AEROBIC BOTTLE GRAM STAIN: GRAM POSITIVE COCCI Possible skin contamination, further Identification and sensitivity will be performed only by physician's request. RESULTS CALLED TO CLAIRE/ OFFICE 01/31/18 1021 Jami Bynum. REPORT READ BACK BY . ANAEROBIC BOTTLE NO GROWTH 5 DAYS. ORGANISM 1: Coag Negative Staph Amount Growth Growth Performed By: #### M200.1000, M100.636 #### [facility] [address] [place], [address] Observed: 01/28/2018 Status: C Source: [place] BC GPC ID 2:51 PM [facility] REPOSITORY BC GPC ID Staphylococcus sp. Not Detected Enterococcus sp. Not Detected Streptococcus spp. Not Detected Listeria spp Not Detected Leesa/vanB Not Detected mecA Not Detected NAAT METHOD Testing was performed using nucleic acid amplification Performed By: #### M200.1000, M100.636 #### [facility] [address] [place], [address] BASIC METABOLIC PANEL Collected: 01/23/2018 Status: F Source: [facility] 10:40 AM [facility] REPOSITORY TYPE CODE TESTS RESULT OUT OF REFERENCE UNITS RANGE LAB GLU 70-99 mg/dL High Glucose 109 Result Comment: This test result might be falsely depressed or falsely elevated on samples drawn from patients taking Sulfasalazine and Sulfapyridine. Venipuncture should occur prior to taking either of these drugs. LAB BUN 8-25 mg/dL BUN High 40 LAB CREA 0.80-1.30 mg/dL Creatinine High 1.63 LAB eGFR >60 ml/min/1.73s Low q.m eGFR,NonAfrican-Am erican 43 Result Comment: Non- GFR Calc eGFR is an estimated Glomerular Filtration Rate based on the value of the patient's serum creatinine. In outpatients, eGFR should be used as a helpful tool in screening for CKD. In inpatients or patients with acute renal failure, eGFR represents the GFR at the moment of the draw and should be used with caution. LAB eGFRB >60 ml/min/1.73sq.m eGFR, -Swedish Low 51 Result Comment: GFR Calc LAB CALCM 8.4-10.2 mg/dL Calcium 9.1 LAB NA 135-145 mmol/L Sodium 138 LAB K 3.5-5.1 mmol/L Potassium 5.1 LAB CL 98-108 mmol/L Chloride 104 LAB CO2 21-32 mmol/L CO2 28 Performed By: #### CHEM8 #### Unless otherwise noted, all testing performed by [place] [address] CLIA: [id number] Lpc: Patrice Bedoya M.D. HEPATIC FUNCTION Collected: 01/18/2018 Status: F Source: [facility] PANEL 4:43 PM [facility] TYPE CODE TESTS RESULT OUT OF RANGE REFERENCE UNITS LAB AST 0-45 U/L Normal AST 13 (SGOT) Result Comment: This test result might be falsely depressed or falsely elevated on samples drawn from patients taking Sulfasalazine and Sulfapyridine. Venipuncture should occur prior to taking either of these drugs. LAB ALT 14-65 U/L Normal ALT (SGPT) 30 Result Comment: This test result might be falsely depressed or falsely elevated on samples drawn from patients taking Sulfasalazine and Sulfapyridine. Venipuncture should occur prior to taking either of these drugs. LAB ALKP 40-150 U/L Normal Alkaline Phosphatase 63 LAB BILIT 0.3-1.2 mg/dL Normal Bilirubin,Total 0.4 LAB BILID 0.0-0.4 mg/dL Normal Bilirubin, Direct 0.2 LAB PROT 6.0-8.0 g/dL Normal Protein, Total 6.8 LAB ALB 3.2-5.2 g/dL Normal Albumin 3.2 Performed By: #### HEPF #### Unless otherwise noted, all testing performed by [place] [address] CLIA: [id number] Lpc: Patrice Bedoya M.D. CONSULTATION Observed: 01/18/2018 Status: F Source: [facility] 3:47 PM [facility] REPOSITORY [address] [address] NAME ANGELINA GIMENEZ [facility] [id number] 1950 DATE 01/18/2018 CONSULTATION LEATHER CRAFTSMAN LIZETH VELASQUEZ MD REASON FOR CONSULTATION Acute on chronic renal insufficiency, anemia. HISTORY OF PRESENT ILLNESS Mr. Gimenez is a very pleasant 67-year-old male who was admitted on 01/14/2018, with complaints of increasing shortness of breath. He also noticed increasing swelling in the lower extremities. He has since been diagnosed with congestive heart failure and is currently on optimal medical management and is feeling improved. This morning, however, he is significantly distressed secondary to hallucinations last night, and attributes it to Ambien. He denies any headache or visual blurring. Denies any chest pain. Has chronic shortness of breath. Denies any nausea, vomiting, abdominal pain, or change in bowel habits or blood in the stool or black stool. He reports a craving for ice since hospitalization, and also reports adequate consumption of red meat in the diet. He denies any evidence of blood in the urine. PAST MEDICAL HISTORY Significant for: 1. History of coronary artery disease. 2. Congestive heart failure. 3. COPD. 4. History of stroke. 5. History of hyperlipidemia. 6. Hypertension. 7. History of ureteral stent. 8. History of CABG. 9. History of coronary stents. FAMILY HISTORY History of breast carcinoma in 4 maternal aunts. SOCIAL HISTORY He is and lives at home with his . Granddaughter is at bedside and is extremely supportive. He has a chronic smoking history of more than 40 years, smoking 1 to 1-1/2 packs per day. He reports use of alcohol, denies any recreational drug use. ALLERGIES Described to amoxicillin, Avapro, and Ambien. MEDICATIONS Reviewed per [facility]. REVIEW OF SYSTEMS A 12-point review of system was performed and is negative except as noted in the HPI. PHYSICAL EXAMINATION General: Patient is seated in bed in no acute distress. Vitals: Reviewed and noted to be temperature of 97.5 degrees Fahrenheit, pulse is 76 per minute, blood pressure is 147/70 mmHg, respiratory rate is 18 per minute, oxygen saturation is 93% on 4 L oxygen by nasal cannula. HEENT: Pallor is present. There is no icterus. Lymph: There is no cervical, supraclavicular, or axillary adenopathy. Chest: Bilateral air entry is fair. Cardiovascular: S1, S2 plus. No murmur. Abdomen: Obese, nontender. Extremities: There is bilateral lower extremity pitting pedal edema. No calf asymmetry noted. Neurologic: He is clinically intact. REVIEW OF LABS Demonstrates BUN and creatinine of 81/2.05, calcium is 8.2, sodium is 133, magnesium is 3.4. Total iron is 14, transferrin is 266, ferritin is 36, vitamin B12 is 610, folate is 14.3. H and H is 8.2/26.3. On 01/15/2018, H and H was 8.3/26.7, platelet count is 190,000, and MCV is 77.8. Total WBC count is 18,200. Reticulocyte count is 1.94, corrected reticulocyte count is 70,000. Hemoglobin electrophoresis was unremarkable. Stool for occult blood on 01/17/2018, was negative. Renal duplex on 01/17/2018, demonstrated diminished size of the left kidney, right kidney to be normal in size, and 0.59% stenosis noted in bilateral renal arteries. IMPRESSION Mr. Gimenez is a 67-year-old male with history of multiple medical problems, acute on chronic renal insufficiency, admitted with exacerbation of congestive heart failure, who is noted to have hypochromic microcytic anemia. ASSESSMENT 1. Hypochromic microcytic anemia. 2. Acute on chronic renal insufficiency. 3. Congestive heart failure. 4. Chronic obstructive pulmonary disease. 5. Coronary artery disease. 6. Peripheral vascular disease. PLAN The patient is noted to have hypochromic microcytic anemia with hypoproliferative component to the anemia, chronicity unknown at this time, noted to have iron deficient status. Differential diagnosis for the anemia includes anemia from chronic renal insufficiency, rule out blood loss, rule out anemia of chronic disease/rule out evolving myelodysplastic syndrome or plasma cell dyscrasia. Recommend obtaining urinalysis to assess for any evidence of blood loss, workup for plasma cell dyscrasia, as well as monitor for any evidence of GI blood loss. Recommend initiating erythropoietin stimulating agent considering the renal insufficiency, monitor retic count and response to erythropoietin stimulating agent. Re-evaluate once above workup is completed and plan further management. The above was discussed at length with the patient and he is in agreement with the plan. Thank you for allowing me to participate in the care of Mr. Gimenez, and I will continue to follow with you while he is in-house. LIZETH VELASQUEZ MD D 01/18/2018 15:47 [id number] T 01/18/2018 16:55 SV/MODL cc: Koko Jeter MD Electronically Signed By Lizeth Velasquez M.D. on 28 Jan 2018 13:54:39 GMT PROTEIN ELECTROPHORESIS, Collected: 01/18/2018 Status: F Source: [facility] SERUM 9:44 AM [facility] REPOSITORY TYPE CODE TESTS RESULT OUT OF REFERENCE UNITS RANGE LAB PROELE 6.0-8.0 g/dL Total Protein Normal 6.5 LAB ALBELE 3.1-5.5 g/dL Albumin Normal 3.4 LAB ALPHA1 0.2-0.5 g/dL Alpha-1 Normal 0.4 LAB ALPHA2 0.4-1.1 g/dL Alpha-2 Normal 0.9 LAB BETA 0.6-1.3 g/dL Beta Normal 1.0 LAB GAMMA 0.6-1.8 g/dL Gamma Normal 0.8 LAB INTERPES Interpretation Normal (ELPRS) Result Comment: Normal pattern. Serum protein electrophoresis is insufficient to rule out a monoclonal protein. Recommend serum immunofixation and serum free light chains if clinically indicated. Test Performed by [facility] [address] [place] [address] LAB COMSPE Normal Reviewed by Comment (SPE) Pathologist: Barber Farnsworth M.D. Performed By: #### IMMFRLTC, IFIXSI, ELPRS #### Unless otherwise noted, all testing performed by [address] [address] CLIA: [id number] Lpc: Patrice Bedoya M.D. IMMUNOFIXATION Collected: 01/18/2018 Status: F Source: [facility] 9:44 AM [facility] REPOSITORY TYPE CODE TESTS RESULT OUT OF REFERENCE UNITS RANGE LAB IFIXSI Normal Immunofixation Normal Normal LAB COMIFIXS Comments (IFIXS) Normal Result Comment: No paraproteins detected. A negative serum immunofixation and/or serum protein electrophoresis is insufficient to rule out a monoclonal protein. Recommend serum free light chains if clinically indicated. Reviewed by Pathologist: Barber Farnsworth MD. Test Performed by [facility] [address] [place] [address] Performed By: #### IMMFRLTC, IFIXSI, ELPRS #### Unless otherwise noted, all testing performed by [place] [address] CLIA: [id number] Lpc: Patrice Bedoya M.D. IMMUNOGLOBULIN FREE LT Collected: 01/18/2018 Status: F Source: [facility] CHAINS 9:44 AM [facility] REPOSITORY TYPE CODE TESTS RESULT OUT OF RANGE REFERENCE UNITS LAB KAPFLTCH 0.3300-1.94 mg/dL Normal [place] 1.48 Free Light Chains LAB LAMFLTCH 0.5700-2.63 mg/dL Normal Lambda 2.17 Free Light Chain LAB KAPLAMR 0.2600-1.65 Normal 0.6820 Hay[place]-Lambda Ratio Result Comment: Test Performed by: [place] [address] Performed By: #### IMMFRLTC, IFIXSI, ELPRS #### Unless otherwise noted, all testing performed by [place] [address] CLIA: [id number] Lpc: Patrice Bedoya M.D. CHEMG (BASIC METABOLIC Collected: 01/18/2018 Status: F Source: [facility] AND MG) 6:27 AM [facility] REPOSITORY TYPE CODE TESTS RESULT OUT OF REFERENCE UNITS RANGE LAB GLU 70-99 mg/dL High Glucose 172 Result Comment: This test result might be falsely depressed or falsely elevated on samples drawn from patients taking Sulfasalazine and Sulfapyridine. Venipuncture should occur prior to taking either of these drugs. LAB BUN 8-25 mg/dL BUN High 81 LAB CREA 0.80-1.30 mg/dL Creatinine High 2.05 LAB eGFR >60 ml/min/1.73s Low q.m eGFR,NonAfrican-Am erican 33 Result Comment: Non- GFR Calc eGFR is an estimated Glomerular Filtration Rate based on the value of the patient's serum creatinine. In outpatients, eGFR should be used as a helpful tool in screening for CKD. In inpatients or patients with acute renal failure, eGFR represents the GFR at the moment of the draw and should be used with caution. LAB eGFRB >60 ml/min/1.73sq.m eGFR, -Swedish Low 39 Result Comment: GFR Calc LAB CALCM 8.4-10.2 mg/dL Low Calcium 8.2 LAB NA 135-145 mmol/L Low Sodium 133 LAB K 3.5-5.1 mmol/L Potassium 5.0 LAB CL 98-108 mmol/L Chloride 101 LAB CO2 21-32 mmol/L CO2 24 LAB MG 1.6-2.4 mg/dL High Magnesium 3.4 Performed By: #### CHEMG #### Unless otherwise noted, all testing performed by [place] [address] CLIA: [id number] Lpc: Patrice Bedoya M.D. HGB AND HCT Collected: 01/17/2018 Status: F Source: [facility] 6:43 AM [facility] REPOSITORY TYPE CODE TESTS RESULT OUT OF REFERENCE UNITS RANGE LAB HGB 12.9-16.9 g/dL Low Hemoglobin 8.2 LAB HCT 37.9-49.2 % Low Hematocrit 26.3 Performed By: #### CHEMG, #### Unless otherwise noted, all testing performed by [place] [address] CLIA: [id number] Lpc: Patrice Bedoya M.D. CHEMG (BASIC METABOLIC Collected: 01/17/2018 Status: F Source: [facility] AND MG) 6:43 AM [facility] REPOSITORY TYPE CODE TESTS RESULT OUT OF REFERENCE UNITS RANGE LAB GLU 70-99 mg/dL High Glucose 190 Result Comment: This test result might be falsely depressed or falsely elevated on samples drawn from patients taking Sulfasalazine and Sulfapyridine. Venipuncture should occur prior to taking either of these drugs. LAB BUN 8-25 mg/dL BUN High 84 LAB CREA 0.80-1.30 mg/dL Creatinine High 2.33 LAB eGFR >60 ml/min/1.73s Low q.m eGFR,NonAfrican-Am erican 28 Result Comment: Non- GFR Calc eGFR is an estimated Glomerular Filtration Rate based on the value of the patient's serum creatinine. In outpatients, eGFR should be used as a helpful tool in screening for CKD. In inpatients or patients with acute renal failure, eGFR represents the GFR at the moment of the draw and should be used with caution. LAB eGFRB >60 ml/min/1.73sq.m eGFR, -Swedish Low 34 Result Comment: GFR Calc LAB CALCM 8.4-10.2 mg/dL Low Calcium 8.1 LAB NA 135-145 mmol/L Low Sodium 133 LAB K 3.5-5.1 mmol/L Potassium 4.8 LAB CL 98-108 mmol/L Chloride 101 LAB CO2 21-32 mmol/L CO2 22 LAB MG 1.6-2.4 mg/dL High Magnesium 3.5 Performed By: #### CHEMG, #### Unless otherwise noted, all testing performed by [place] [address] CLIA: [id number] Lpc: Patrice Bedoya M.D. OCCULT BLD STOOL-DIAG,IMMUNO Collected: Status: F Source: [facility] 01/17/2018 12:35 AM [facility] REPOSITORY TYPE CODE TESTS RESULT OUT OF RANGE REFERENCE UNITS LAB OCCIMDG Negative Normal Occult Negative Bld Stool-Diag,I mmuno Result Comment: Rapid test procedural control acceptable. Performed By: #### OCCIMDG #### Unless otherwise noted, all testing performed by [place] [address] CLIA: [id number] Lpc: Patrice Bedoya M.D. US RENAL RETROPERITONEAL Observed: 01/16/2018 Status: F Source: [facility] 7:31 PM [facility] REPOSITORY Final Report Accession No: [id number] Performed: Jan 16 2018 7:31PM Examination: US RENAL RETROPERITONEAL PROCEDURE: US RENAL RETROPERITONEAL, 01/16/2018 7:31 PM CLINICAL INDICATIONS: Renal failure COMPARISON: CT abdomen and pelvis 03/12/2015. TECHNIQUE: Renal and bladder sonogram FINDINGS: Right kidney: 11.8 x 6.0 x 5.8 cm Left kidney: 10.1 x 4.1 x 4.4 cm Prevoid urinary bladder volume: 170 mL Postvoid urinary bladder volume: 6 mL. Right renal cortex is normal in cortical thickness and echogenicity. Hydronephrosis calculus or focal abnormality is not evident. Left kidney demonstrates severe increased echogenicity . There is cortical thinning at 0.5 cm. Hydronephrosis or shadowing calculus is not evident. There are 2 cystic areas within measuring 0.9 cm respectively. The urinary bladder is unremarkable. Bladder wall is upper normal. Right ureteral jet is seen. The left is not evident during sonographic surveillance. IMPRESSION: 1. Severe left renal cortical thinning, medical renal disease without hydronephrosis or calculus 2. 0.9 cm cystic areas within the left kidney 3. Normal morphology right kidney 4. 6 mL postvoid urinary bladder residual Interpreting Physician: KATHERINE MAGAÑA M.D. Trans: n/a : cc: SODIUM Collected: 01/16/2018 Status: F Source: [facility] 1:41 PM [facility] TYPE CODE TESTS RESULT OUT OF REFERENCE UNITS RANGE LAB NA 135-145 mmol/L Low Sodium 131 Performed By: #### NA #### Unless otherwise noted, all testing performed by [address] [place] [address] CLIA: [id number] Lpc: Patrice Bedoya M.D. CONSULTATION Observed: 01/16/2018 Status: F Source: [facility] 12:33 PM [facility] REPOSITORY [address] [place] [address] NAME ANGELINA GIMENEZ [id number] 1950 DATE CONSULTATION LEATHER CRAFTSMAN [place] JETER MD REASON FOR CONSULTATION Renal insufficiency. HISTORY OF PRESENT ILLNESS This is a pleasant, unfortunate 67-year-old male with past medical history significant for hypertension, history of a CVA, history of congestive heart failure, who presented to the emergency room with complaints of shortness of breath. Chest x-ray concerning for possible pneumonia but also congestive heart failure. Therefore, patient was admitted for further evaluation and treatment. He was started on IV antibiotics, ceftriaxone as well as azithromycin, also started on Lasix 40 mg IV twice daily. We were consulted for evaluation of renal insufficiency. Mr. Gimenez reports that he has not been evaluated in the office by a director of education in the past but has been told by his primary care physician that his creatinine of late has been ranging around 1.2-1.4 mg/dL. In reviewing creatinine trends that are available through the hospital system. He only has labs in November 2014 as well as labs from this hospitalization. 12/13/2014 creatinine 1.30 mg/dL. Estimated GFR 56 mL/minute. 01/15/2018, creatinine 2.42. Estimated GFR 27. Today, 01/16/2018, creatinine 2.27. Estimated GFR 29. The patient currently denies any recent nausea, vomiting, or diarrhea. His only complaint of late has been shortness of breath. The patient reports that he has been following closely with his internal audit director and heart failure team in [place], [place] recently. Diuretics have been changed with the addition of metolazone daily. Patient reports after he had been taking metolazone he did notice fluid in his legs to have improved. His weight dropped to approximately 200 pounds. However, patient reports that he had been feeling tired but shortness of breath did not improve. He denies any recent NSAID use. Denies any recent contrast studies. Denies any urinary habit changes including increased/decreased urine output, hematuria or dysuria. The patient does report that he has a history of having only 1 left kidney with a stent. PAST MEDICAL HISTORY 1. Hypertension. 2. History of CVA. 3. Coronary artery disease status post coronary artery bypass graft surgery. 4. History of COPD. 5. History of congestive heart failure. 6. History of alcohol abuse. 7. History of myocardial infarction. 8. History of peripheral vascular disease. PAST SURGICAL HISTORY 1. Coronary artery bypass grafting x3 vessels. 2. Cardiac stents x2. 3. Renal stent left kidney. FAMILY HISTORY Negative for kidney disease or anyone requiring hemodialysis support. SOCIAL HISTORY Patient is . Lives with his . Does have a history of tobacco abuse, smoking 10 cigarettes a day for the last 40 years. Also drinks beer daily, approximately 5-6. Denies illicit drug use. ALLERGIES Amoxicillin and Avapro. HOME MEDICATIONS Reviewed per medication reconciliation list. REVIEW OF SYSTEMS Ten systems reviewed. Pertinent positives and negatives see HPI and past medical history. PHYSICAL EXAM General appearance: Patient is alert and oriented, does not appear to be in any acute distress. HEENT. Head is normocephalic, atraumatic. Pupils equal, round, reactive to light and accommodation. Oral mucosa is moist. Neck: Soft, supple. Respiratory: Scattered rales noted anteriorly and posteriorly with faint expiratory wheezing noted. Cardiovascular: S1, S2 noted. Rhythm and rate regular. Gastrointestinal: Abdomen is soft, nontender, nondistended. Positive bowel sounds x4 quadrants. Extremities: Pitting edema noted bilateral lower legs, feet and thighs. Neuro: Patient is alert and oriented to person, place, and time. LABORATORY AND X-RAY DATA Today, glucose 171, BUN 94, creatinine 2.27, sodium 129, potassium 4.6, CO2 21. WBC 7.8, hemoglobin 8.1, platelet count 194. Chest x- ray, impression: Cardiomegaly with edema, worsening bibasilar consolidation and effusion. IMPRESSION 1. Acute kidney injury on possible chronic kidney disease. 2. Nword-li-bsqofiw congestive heart failure. 3. Possible pneumonia. 4. Hypertension. 5. Lower extremity edema. PLAN For acute kidney injury, this could possibly be secondary to cardiorenal syndrome physiology versus recent hemodynamic changes versus baseline CKD versus other etiology. There is no acute indication for renal replacement therapy. We will check a renal duplex scan, renal ultrasound, urinalysis and urine protein creatinine ratio. Recommend to continue diuresis but will change to Bumex 1 mg IV twice a day. Also recommend daily weights, standing weights only. Recommend fluid restriction 1.5 L a day. Further orders will be forthcoming as hospitalization evolves. Thank you for allowing us to participate in the care of Mr. Gimenez. Addendum: I agree with the nephrology consultation as dictated by nurse practitioner. I have seen and independently examined the patient. In brief, this is a 67-year-old gentleman with hypertension, heart failure with unknown EF, apparently solitary kidney from unknown reasons with renal artery stent placed, presented to the hospital with shortness of breath, found to be in decompensated heart failure. In the outpatient setting, he was on Lasix, Bumex, Aldactone and metolazone. While here he was found to have acute kidney injury with BUN of over 90 and creatinine of 2.3; he was started on IV Lasix with only about 1 L urine output; he still appears quite hypervolemic on exam. He also developed hyponatremia likely from hypervolemia and from metolazone. Will stop metolazone. We will change IV Lasix to IV Bumex 1 mg twice a day IV for now. Outpatient diabetic regimen to be determined depending upon his response to IV diuretics along with consultation with cardiology and the hospitalist team. We will check a UA, urine protein to creatinine ratio, renal artery Dopplers and renal ultrasound. We will arrange for a hospital followup with Dr. Metz on discharge as the patient lives in [place] which is close to [facility]. MD Alvaro SHEIKH 01/16/2018 12:33 [id number] T 01/16/2018 14:22 SAT/MODL Electronically Signed By Israel Jeter on 16 Jan 2018 21:01:48 GMT Observed: 01/16/2018 Status: F Source: [facility] CULTURE, SPUTUM 10:28 AM [facility] REPOSITORY Test Name: Culture, Sputum Culture Status: Final Gram Stain: Sputum specimen rejected for culture.Many squamous epithelial cells present indicating oropharyngeal contamination. Suggest repeat. Notified:Rajindercia @B41 Micro Source: Sputum - coughed Performed By: #### SPCUL #### Unless otherwise noted, all testing performed by [facility] [place] [address] [address] [place], [place] [address] CLIA: [id number] Lpc: Patrice Bedoya M.D. CHEMG (BASIC METABOLIC Collected: 01/16/2018 Status: F Source: [facility]) 6:30 AM [facility] REPOSITORY TYPE CODE TESTS RESULT OUT OF REFERENCE UNITS RANGE LAB GLU 70-99 mg/dL High Glucose 171 Result Comment: This test result might be falsely depressed or falsely elevated on samples drawn from patients taking Sulfasalazine and Sulfapyridine. Venipuncture should occur prior to taking either of these drugs. LAB BUN 8-25 mg/dL BUN High 94 LAB CREA 0.80-1.30 mg/dL Creatinine High 2.27 LAB eGFR >60 ml/min/1.73s Low q.m eGFR,NonAfrican-Am erican 29 Result Comment: Non- GFR Calc eGFR is an estimated Glomerular Filtration Rate based on the value of the patient's serum creatinine. In outpatients, eGFR should be used as a helpful tool in screening for CKD. In inpatients or patients with acute renal failure, eGFR represents the GFR at the moment of the draw and should be used with caution. LAB eGFRB >60 ml/min/1.73sq.m eGFR, -Swedish Low 35 Result Comment: GFR Calc LAB CALCM 8.4-10.2 mg/dL Low Calcium 7.9 LAB NA 135-145 mmol/L Low Sodium 129 LAB K 3.5-5.1 mmol/L Potassium 4.6 LAB CL 98-108 mmol/L Chloride 101 LAB CO2 21-32 mmol/L CO2 21 LAB MG 1.6-2.4 mg/dL High Magnesium 3.4 Performed By: #### RETIC, CHEMG, TFERR, IRON, HGBID, [id number], FERR, CBCDIF #### Unless otherwise noted, all testing performed by [place] [address] CLIA: [id number] Lpc: Patrice Bedoya M.D. FERRITIN Collected: 01/16/2018 Status: F Source: [facility] 6:30 AM [facility] REPOSITORY TYPE CODE TESTS RESULT OUT OF RANGE REFERENCE UNITS LAB FERR 30-400 ng/mL Normal Ferritin 36 Result Comment: Samples from patients routinely receiving high dose biotin therapy (100-300 mg/day) may show falsely decreased results. Please correlate clinically. Performed By: #### RETIC, CHEMG, TFERR, IRON, HGBID, [id number], FERR, CBCDIF #### Unless otherwise noted, all testing performed by [place] [address] CLIA: [id number] Lpc: Patrice Bedoya M.D. IRON, TOTAL Collected: 01/16/2018 Status: F Source: [facility] 6:30 AM [facility] REPOSITORY TYPE CODE TESTS RESULT OUT OF RANGE REFERENCE UNITS LAB IRON 65-175 mcg/dL Low Iron, 14 Total Performed By: #### RETIC, CHEMG, TFERR, IRON, HGBID, [id number], FERR, CBCDIF #### Unless otherwise noted, all testing performed by [place] [address] CLIA: [id number] Lpc: Patrice Bedoya M.D. TRANSFERRIN Collected: 01/16/2018 Status: F Source: [facility] 6:30 [facility] REPOSITORY TYPE CODE TESTS RESULT OUT OF REFERENCE UNITS RANGE LAB TFERR 212.0-360.0 mg/dL Transferrin Normal 266.0 Performed By: #### RETIC, CHEMG, TFERR, IRON, HGBID, [id number], FERR, CBCDIF #### Unless otherwise noted, all testing performed by [place] [address] CLIA: [id number] Lpc: Patrice Bedoya M.D. RETICULOCYTE Collected: 01/16/2018 Status: F Source: [facility] 6:29 AM [facility] REPOSITORY TYPE CODE TESTS RESULT OUT OF REFERENCE UNITS RANGE LAB RETIC 0.5-1.7 % Reticulocyte High 1.94 Performed By: #### RETIC, CHEMG, TFERR, IRON, HGBID, [id number], FERR, CBCDIF #### Unless otherwise noted, all testing performed by [place] [address] CLIA: [id number] Lpc: Patrice Bedoya M.D. CBC WITH DIFF Collected: 01/16/2018 Status: F Source: [facility] 6:29 AM [facility] REPOSITORY TYPE CODE TESTS RESULT OUT OF RANGE REFERENCE UNITS LAB WBC 3.6-10.4 K/mcL WBC Normal 7.8 LAB RBC 4.0-5.5 M/mcL Low RBC 3.42 LAB HGB 12.9-16.9 g/dL Low Hemoglobin 8.1 LAB HCT 37.9-49.2 % Low Hematocrit 26.8 LAB MCV 82.8-99.3 FL Low MCV 78.4 LAB MCH 27.7-34.6 pg Low MCH 23.8 LAB MCHC 32.9-35.5 g/dL Low MCHC 30.4 LAB PLT 139-354 K/mcL Platelet Normal Count 194 LAB MPV 6.6-10.8 FL MPV Normal 9.8 LAB NEUT# 1.4-6.8 K/mcL High Neutrophil # 7.3 LAB LYMPH# 0.9-3.6 K/mcL Low Lymphocyte # 0.4 LAB MONO# 0.2-0.6 K/mcL Low Monocyte # 0.1 LAB EOS# 0-0.5 K/mcL Normal Eosinophil # 0.0 LAB BASO# 0-0.2 K/mcL Basophil Normal # 0.0 LAB SEGNEU% % Normal Segmented Neut % 93.2 LAB LYMP% % Normal Lymphocyte% 4.6 LAB MO% % Monocyte Normal % 1.9 LAB EO% % Normal Eosinophil % 0.2 LAB BA% % Basophil Normal % 0.1 LAB RDW 10-14.3 % High RDW 19.1 Result Comment: Smear reviewed for RBC morphology. LAB ANISO None Seen Abnormal Anisocytosis 1+ LAB MICRO None Seen Abnormal Microcytosis 1+ LAB HYPO None Seen Abnormal Hypochromasia 1+ LAB OVAL None Seen Abnormal Ovalcyte 1+ Performed By: #### RETIC, CHEMG, TFERR, IRON, HGBID, [id number], FERR, CBCDIF #### Unless otherwise noted, all testing performed by [place] [address] [address] [place], [place] [address] CLIA: [id number] Lpc: Patrice Bedoya M.D. VITAMIN B12 AND Collected: 01/16/2018 Status: F Source: [facility] FOLATES 6:29 AM [facility] REPOSITORY TYPE CODE TESTS RESULT OUT OF RANGE REFERENCE UNITS LAB VITB12 193-986 pg/mL Normal Vitamin B12 610 LAB FOLATE 3.1-17.5 ng/mL Normal Folate 14.3 Performed By: #### RETIC, CHEMG, TFERR, IRON, HGBID, [id number], FERR, CBCDIF #### Unless otherwise noted, all testing performed by [place] [address] CLIA: [id number] Lpc: Patrice Bedoya M.D. HEMOGLOBIN IDENTIFICATION Collected: 01/16/2018 Status: F Source: [facility] 6:29 AM [facility] REPOSITORY TYPE CODE TESTS RESULT OUT OF REFERENCE UNITS RANGE LAB HIRBC 4.50-5.90 M/mcL RBC Low 3.22 LAB HIHGB 13.5-17.5 g/dL Hemoglobin Low 7.9 LAB HIMCV 80.0-100.0 fL MCV 82.0 LAB HIRDW 11.6-14.8 % RDW High 18.0 LAB HGBA 96.0-100.0 % Hemoglobin A 97.1 LAB HGBA2 1.5-3.7 % Hemoglobin A2 2.9 LAB HGBINT Hgb Interpretation See Comment Result Comment: Hemoglobin HPLC shows a normal hemoglobin A2 pattern. Indices and smear are consistent with iron deficiency. Test Performed by [facility] [address] [place] [address] Performed By: #### RETIC, CHEMG, TFERR, IRON, HGBID, [id number], FERR, CBCDIF #### Unless otherwise noted, all testing performed by [place] [address] CLIA: [id number] Lpc: Patrice Bedoya M.D. CHEST (ONE VIEW Observed: 01/15/2018 Status: F Source: [facility]) 12:10 PM [facility] REPOSITORY Final Report Accession No: [id number] Performed: Jan 15 2018 12:10PM Examination: CHEST (ONE VIEW ONLY) EXAM: CHEST (ONE VIEW ONLY) DATE: 01/15/2018 12:31 PM COMPARISON: January 14, 2018. HISTORY: Respiratory insufficiency. FINDINGS: There is stable cardiomegaly, with diffuse increased basilar predominant interstitial opacity. There is worsening small bilateral effusions and basilar consolidation. IMPRESSION: Cardiomegaly with edema, and worsening bibasilar consolidation and effusions. Interpreting Physician: PK ZARAGOZA M.D. Trans: bminni : cc: CBC WITH DIFF Collected: 01/15/2018 Status: F Source: [facility] 5:58 AM [facility] REPOSITORY TYPE CODE TESTS RESULT OUT OF REFERENCE UNITS RANGE LAB WBC 3.6-10.4 K/mcL WBC High 18.2 LAB RBC 4.0-5.5 M/mcL Low RBC 3.43 LAB HGB 12.9-16.9 g/dL Low Hemoglobin 8.3 LAB HCT 37.9-49.2 % Low Hematocrit 26.7 LAB MCV 82.8-99.3 FL Low MCV 77.8 LAB MCH 27.7-34.6 pg Low MCH 24.1 LAB MCHC 32.9-35.5 g/dL Low MCHC 31.0 LAB PLT 139-354 K/mcL Platelet Count 190 LAB MPV 6.6-10.8 FL MPV 8.9 LAB RDW 10-14.3 % RDW High 19.2 LAB NEUT# 1.4-6.8 K/mcL High Neutrophil # 15.8 LAB LYMPH# 0.9-3.6 K/mcL Low Lymphocyte # 0.7 LAB MONO# 0.2-0.6 K/mcL Monocyte High # 1.7 LAB EOS# 0-0.5 K/mcL Eosinophil # 0.0 LAB BASO# 0-0.2 K/mcL Basophil # 0.0 LAB SEGNEU% % Segmented Neut % 87.0 Result Comment: Smear reviewed to verify automated differential> LAB LYMP% % Lymphocyte% 3.6 LAB MO% % Monocyte % 9.3 LAB EO% % Eosinophil % 0.1 LAB BA% % Basophil % 0.0 LAB ANISO None Seen Abnormal Anisocytosis 1+ LAB MICRO None Seen Abnormal Microcytosis 1+ LAB HYPO None Seen Abnormal Hypochromasia 1+ LAB OVAL None Seen Abnormal Ovalcyte 1+ Performed By: #### CHEMG, CBCDIF, PTT, PT #### Unless otherwise noted, all testing performed by [address] [address] CLIA: [id number] Lpc: Patrice Bedoya M.D. CHEMG (BASIC METABOLIC Collected: 01/15/2018 Status: F Source: [facility] ) 5:58 AM [facility] REPOSITORY TYPE CODE TESTS RESULT OUT OF REFERENCE UNITS RANGE LAB GLU 70-99 mg/dL High Glucose 159 Result Comment: This test result might be falsely depressed or falsely elevated on samples drawn from patients taking Sulfasalazine and Sulfapyridine. Venipuncture should occur prior to taking either of these drugs. LAB BUN 8-25 mg/dL BUN High 87 LAB CREA 0.80-1.30 mg/dL Creatinine High 2.42 LAB eGFR >60 ml/min/1.73s Low q.m eGFR,NonAfrican-Am erican 27 Result Comment: Non- GFR Calc eGFR is an estimated Glomerular Filtration Rate based on the value of the patient's serum creatinine. In outpatients, eGFR should be used as a helpful tool in screening for CKD. In inpatients or patients with acute renal failure, eGFR represents the GFR at the moment of the draw and should be used with caution. LAB eGFRB >60 ml/min/1.73sq.m eGFR, -Swedish Low 33 Result Comment: GFR Calc LAB CALCM 8.4-10.2 mg/dL Low Calcium 7.6 LAB NA 135-145 mmol/L Low Sodium 128 LAB K 3.5-5.1 mmol/L Potassium 4.9 LAB CL 98-108 mmol/L Low Chloride 96 LAB CO2 21-32 mmol/L CO2 23 LAB MG 1.6-2.4 mg/dL High Magnesium 3.0 Performed By: #### CHEMG, CBCDIF, PTT, PT #### Unless otherwise noted, all testing performed by [address] [address] CLIA: [id number] Lpc: Patrice Bedoya M.D. PROTIME Collected: 01/15/2018 Status: F Source: [facility] 5:58 AM [facility] REPOSITORY TYPE CODE TESTS RESULT OUT OF RANGE REFERENCE UNITS LAB PT. 11.8-14.3 Seconds Normal Protime 14.1 LAB INR Normal INR 1.12 Result Comment: The [place] [employer] recommended therapeutic range for Warfarin (Coumadin) therapy goals: PROPHYLAXIS/TREATMENT of: INR Venous Thrombosis, Pulmonary Embolism 2.0-3.0 Prevention of VTE (Orthopedic Surgery) 2.0-3.0 Atrial Fibrillation 2.0-3.0 Myocardial Infarction 2.0-3.0 Mechanical Prosthetic Heart Valves (Aortic position) 2.0-3.0 Mechanical Prosthetic Heart Valves (Mitral Position) 2.5-3.5 [place] [employer] evidence-based clinical practice guidelines. CHEST. 2012 (9th ed) Performed By: #### CHEMG, CBCDIF, PTT, PT #### Unless otherwise noted, all testing performed by [place] [address] CLIA: [id number] Lpc: Patrice Bedoya M.D. PARTIAL THROMBOPLASTIN Collected: 01/15/2018 Status: F Source: [facility] 5:58 AM [facility] REPOSITORY TYPE CODE TESTS RESULT OUT OF REFERENCE UNITS RANGE LAB PTT 23.0-34.0 Seconds Partial Normal Thromboplastin Time 28 Result Comment: Suggested therapeutic range for PTT is 68-104 sec. Performed By: #### CHEMG, CBCDIF, PTT, PT #### Unless otherwise noted, all testing performed by [place] [address] CLIA: [id number] Lpc: Patrice Bedoya M.D. GASES - BLOOD Collected: 01/14/2018 Status: F Source: [facility] 6:36 PM [facility] REPOSITORY TYPE CODE TESTS RESULT OUT OF RANGE REFERENCE UNITS LAB 49058770(L OINC) Arterial Normal Sample Type. LAB 96483593(L 7.350-7.450 OINC) High 7.486 pH. LAB 57930373(L 35.0-45.0 mmHg OINC) Low 29.8 P CO2. LAB 75623593(L 80-100 mmHg OINC) Low 66 P O2. LAB 77449553(L 22-28 mmol/L OINC) 23 Normal CO2 Tot. LAB 53379415(L 22.0-26.0 mmol/L OINC) 22.5 Normal HCO#. LAB 90266146(L 95-100 % OINC) 95 Normal O2 Sat. LAB 60904099(L -2-3 mmol/L OINC) -1 Normal Base Excess. LAB 49539255(L % OINC) 28 Normal FiO2. LAB 11178893(L OINC) R rad Normal Sample Site. LAB 00719543(L OINC) Positive Normal Allens Test. LAB 76827917(L OINC) Cannula Normal O2 Devices. LAB 39195173(L OINC) NOT Normal Vent Mode. CALCULATED LAB 71369040(L OINC) NOT Normal Set CALCULATED RR(b/min). LAB 79716431(L OINC) NOT Normal CPAP/PEEP(cmH CALCULATED 2O). LAB 00040263(L OINC) NOT Normal Tidal CALCULATED Volume(mL). LAB 93738121(L OINC) NOT Normal PSV/IP(cmH2O) CALCULATED . LAB 08241790(L DegC OINC) NOT Normal Patient Temp. CALCULATED LAB 54605341(L OINC) [id number] Normal OPID. Performed By: #### [id number] #### RHONDA POC Subsection [address] [place] [address] XR CHEST AP PORTABLE Observed: 01/14/2018 Status: F Source: [facility] 10:02 AM [facility] REPOSITORY Exam Date/Time: 01/14/2018 10:05 EDT Reason for Exam: Congestive Heart Failure Report CHEST ONE VIEW - JANUARY 14, 2018 COMPARISON: January 12, 2018. HISTORY: Congestive heart failure. FINDINGS: A single frontal view of the chest demonstrates improved aeration of both lungs with persistent blunting of the right costophrenic angle. The heart size is at the upper limits of normal, with atherosclerotic vascular calcification within the aorta. Status post median sternotomy with moderate degenerative changes of the lower thoracic spine noted. IMPRESSION: Evidence of improving pulmonary edema with a small residual right pleural effusion. FINAL REPORT Dictated: 01/14/2018 12:36 pm Manoj Brown MD Signed (Electronic Signature): 01/14/2018 12:36 pm Signed by: Manoj [place] MD Technologist: MG PARDO Collected: 01/14/2018 Status: F Source: [place] 5:24 AM [facility] REPOSITORY TYPE CODE TESTS RESULT OUT OF RANGE REFERENCE UNITS LAB 64109592(L 70-99 mg/dL OINC) High Glucose Lvl 152 LAB 22211114(L 7-18 mg/dL OINC) High BUN 89 LAB 3297806(LO 0.6-1.3 mg/dL INC) High Creatinine 2.3 LAB 80588457(L 5.4-30.0 ratio OINC) High BUN/Creat Ratio 38.7 LAB 60448473(L 8.4-10.2 mg/dL OINC) Low Calcium Lvl 8.0 LAB 89141843(L 136-145 mEq/L OINC) Low Sodium Lvl 131 LAB 23935819(L 3.5-5.1 mEq/L OINC) Normal Potassium Lvl 4.9 LAB 94642852(L 98-107 mEq/L OINC) Chloride Normal 100 LAB 95321956(L 24.0-30.0 mEq/L OINC) Low CO2 21.9 Performed By: #### [id number] #### RHONDA [facility] [employer] [facility] [place] [address] EGFR Collected: 01/14/2018 Status: F Source: [place] 5:24 AM [facility] REPOSITORY Order Comment: Order added by Discern Expert. TYPE CODE TESTS RESULT OUT OF RANGE REFERENCE UNITS LAB 05866183(LO mL/min/1.73 INC) m2 Normal eGFR 29 LAB 75260534(LO mL/min/1.73 INC) m2 Normal eGFR AA 35 Performed By: #### [id number] #### RHONDA [employer] [address] [place] [address] CBC W/ AUTO DIFF Collected: 01/14/2018 Status: F Source: [place] 5:24 AM [facility] REPOSITORY TYPE CODE TESTS RESULT OUT OF RANGE REFERENCE UNITS LAB 12701984(L 3.6-11.0 E3/mcL OINC) High WBC 15.1 LAB 04774939(L 3.90-6.10 E6/mcL OINC) Low RBC 3.59 LAB 16131870(L 13.5-18.0 G/DL OINC) Low Hgb 8.6 LAB 68350157(L 42.0-52.0 % OINC) Low Hct 27.8 LAB 40776592(L 11.5-14.5 % OINC) High RDW 19.2 LAB 85937267(L 27.0-31.0 pg OINC) Low MCH 23.9 LAB 72243578(L 33.0-37.0 G/DL OINC) Low MCHC 30.9 LAB 03306807(L 78.0-100.0 fL OINC) Low MCV 77.4 LAB 92030208(L 7.4-11.0 fL OINC) Normal MPV 9.1 LAB 06601895(L 130-400 E3/mcL OINC) Normal Platelet 190 Performed By: #### [id number] #### RHONDA [employer] [address] [place] [address] MANUAL DIFF Collected: 01/14/2018 Status: F Source: [place] 5:24 AM [facility] REPOSITORY Order Comment: Order Added by Discern Expert. TYPE CODE TESTS RESULT OUT OF REFERENCE UNITS RANGE LAB 21201829( 37-75 % LOINC) Segs Man 83 High LAB 21871852( 0-1 LOINC) Band Man 1 Normal LAB 31693591( 14-48 % LOINC) Low Lymph Man 5 LAB 40870848( 1-11 % LOINC) Monocyte Man 11 Normal LAB 99962836( 0-5 % LOINC) Eos Man 0 Normal LAB 30879283( 0-1 % LOINC) Basophil Man 0 Normal LAB 40714124( LOINC) RBC Morph SEE Normal MORPHOLOGY LAB 27900169( LOINC) Hypochromasia 1+ Normal LAB 62997002( LOINC) Anisocytosis 1+ Normal Performed By: #### [id number] #### RHONDA [employer] [address] [place] [address] ZZPLT MORPH Collected: 01/14/2018 Status: F Source: [place] 5:24 AM [facility] REPOSITORY TYPE CODE TESTS RESULT OUT OF RANGE REFERENCE UNITS LAB 38514617(L OINC) Normal Platelet NORMAL Estimate LAB 01554176(L OINC) Normal Platelet Morph NORMAL Performed By: #### [id number] #### RHONDA [employer] [address] [place] [address] .MANUAL ABS Collected: 01/14/2018 Status: F Source: [place] 5:24 AM [facility] REPOSITORY Order Comment: Order Added by Discern Expert. TYPE CODE TESTS RESULT OUT OF RANGE REFERENCE UNITS LAB 79726862(L 1.4-6.5 10x3/ OINC) High Segs Abs Man 12.5 LAB 76700168(L 1.2-3.4 10x3/ OINC) Low Lymph Abs Man 0.8 LAB 66273877(L 0.0-0.7 10x3/ OINC) High [place] Abs Man 1.7 LAB 72233525(L 0.0-0.5 10x3/ OINC) Normal Eos Abs Man 0.0 LAB 77638228(L 0.0-0.2 10x3/ OINC) Normal Basophil Abs 0.0 Man Performed By: #### [id number] #### RHONDA RemHemo [address] [place] [address] Observed: 01/13/2018 Status: F Source: [facility] SPUTUM 10:41 PM [facility] REPOSITORY Final Report: Light growth of Yeast Deanna species, not albicans in Normal upper respiratory jaylen isolated to date ORGANISM: Yeast Gram Stain Report: Few epithelial cells Few Gram Positive Cocci Few White Blood Cells Performed By: #### [id number] #### RHONDA Microbiology Subsection [address] [place] [address] TROPONIN-I Collected: 01/13/2018 Status: F Source: [place] 10:30 AM [facility] REPOSITORY TYPE CODE TESTS RESULT OUT OF RANGE REFERENCE UNITS LAB 16262808(LO .00-.03 ng/mL INC) Normal .02 Troponin-I Performed By: #### [id number] #### RHONDA [employer] [address] [place] [address] TROPONIN-I Collected: 01/13/2018 Status: F Source: [place] 4:51 AM [facility] REPOSITORY TYPE CODE TESTS RESULT OUT OF RANGE REFERENCE UNITS LAB 92698134(LO .00-.03 ng/mL INC) Normal .03 Troponin-I Performed By: #### [id number] #### RHONDA [employer] [address] [place] [address] BMP Collected: 01/13/2018 Status: F Source: [place] 4:51 AM [facility] REPOSITORY TYPE CODE TESTS RESULT OUT OF RANGE REFERENCE UNITS LAB 13759307(L 70-99 mg/dL OINC) High Glucose Lvl 283 LAB 88810889(L 7-18 mg/dL OINC) High BUN 88 LAB 2210540(LO 0.6-1.3 mg/dL INC) High Creatinine 2.5 LAB 09872916(L 5.4-30.0 ratio OINC) High BUN/Creat Ratio 35.2 LAB 86948178(L 8.4-10.2 mg/dL OINC) Calcium Normal Lvl 8.6 LAB 09714316(L 136-145 mEq/L OINC) Low Sodium Lvl 131 LAB 99850397(L 3.5-5.1 mEq/L OINC) Normal Potassium Lvl 4.6 LAB 51402560(L 98-107 mEq/L OINC) Chloride Normal 98 LAB 77401113(L 24.0-30.0 mEq/L OINC) Low CO2 21.7 Performed By: #### [id number] #### RHONDA [employer] [facility] [place] [id number] EGFR Collected: 01/13/2018 Status: F Source: [place] 4:51 AM [facility] REPOSITORY Order Comment: Order added by Discern Expert. TYPE CODE TESTS RESULT OUT OF RANGE REFERENCE UNITS LAB 31515450(LO mL/min/1.73 INC) m2 Normal eGFR 26 LAB 66739606(LO mL/min/1.73 INC) m2 Normal eGFR AA 31 Performed By: #### [id number] #### RHONDA [employer] [address] [place] [id number] CBC W/ AUTO DIFF Collected: 01/13/2018 Status: F Source: [place] 4:51 AM [facility] REPOSITORY TYPE CODE TESTS RESULT OUT OF RANGE REFERENCE UNITS LAB 34535175(L 3.6-11.0 E3/mcL OINC) Normal WBC 7.6 LAB 98327691(L 3.90-6.10 E6/mcL OINC) Normal RBC 4.16 LAB 05049527(L 13.5-18.0 G/DL OINC) Low Hgb 10.1 LAB 92861651(L 42.0-52.0 % OINC) Low Hct 32.4 LAB 09988230(L 11.5-14.5 % OINC) High RDW 19.3 LAB 46162840(L 27.0-31.0 pg OINC) Low MCH 24.3 LAB 20725445(L 33.0-37.0 G/DL OINC) Low MCHC 31.2 LAB 91251366(L 78.0-100.0 fL OINC) Low MCV 77.9 LAB 03790528(L 7.4-11.0 fL OINC) Normal MPV 9.1 LAB 02977263(L 130-400 E3/mcL OINC) Normal Platelet 189 Performed By: #### [id number] #### RHONDA VasquezHemo [address] [place] [address] MANUAL DIFF Collected: 01/13/2018 Status: F Source: [place] 4:51 AM [facility] REPOSITORY Order Comment: Order Added by Discern Expert. TYPE CODE TESTS RESULT OUT OF REFERENCE UNITS RANGE LAB 77490191( 37-75 % LOINC) Segs Man 94 High LAB 59996058( 14-48 % LOINC) Low Lymph Man 6 LAB 76911407( 1-11 % LOINC) Low Monocyte 0 Man LAB 69785060( 0-5 % LOINC) Eos Man 0 Normal LAB 22027916( 0-1 % LOINC) Basophil 0 Normal Man LAB 14781701( LOINC) RBC Morph SEE Normal MORPHOLOGY LAB 25222885( LOINC) 1+ Normal Anisocytosis Performed By: #### [id number] #### RHONDA [employer] [address] [place] [address] ZZPLT MORPH Collected: 01/13/2018 Status: F Source: [place] 4:51 AM [facility] REPOSITORY TYPE CODE TESTS RESULT OUT OF RANGE REFERENCE UNITS LAB 93602641(L OINC) Normal Platelet NORMAL Estimate LAB 94915851(L OINC) Normal Platelet Morph NORMAL Performed By: #### [id number] #### RHONDA [employer] [address] [place] [address] INFLUENZA A&B AG Collected: 01/12/2018 Status: F Source: [place] 11:33 PM [facility] REPOSITORY TYPE CODE TESTS RESULT OUT OF REFERENCE UNITS RANGE LAB 84993179(L Negative OINC) Normal Influenzae A Ag Negative LAB 14453663(L Negative OINC) Normal Influenzae B Ag Negative Performed By: #### [id number] #### RHONDA [facility] Micro SubSection , CT THORAX W/O Observed: 01/12/2018 Status: F Source: [facility] CONTRAST 9:05 PM [facility] REPOSITORY Exam Date/Time: 01/12/2018 21:20 EDT Reason for Exam: Pleural effusion Report PROCEDURE: CT Thorax w/o Contrast 01/12/2018 9:05 PM HISTORY: Fluid in lungs with shortness of breath. COMPARISON: Prior exam dated 12/10/2017. TECHNIQUE: Noncontrast images of the chest are submitted for review. Reformatted images in the coronal and sagittal planes are also submitted. Dose reduction techniques were achieved by using automated exposure control and/or adjustment of mA and/or kV according to patient size and/or use of iterative reconstruction technique. FINDINGS: Aorta and Vasculature: There is normal caliber of thoracic aorta without evidence of aortic dissection, intramural hematoma or aneurysm. There are multifocal atherosclerotic plaques throughout the aorta and its branches including at the origin of the great vessels. Severe diffuse coronary atherosclerotic calcifications are identified including dense calcifications in the left anterior descending. Dense calcifications are also noted within the circumflex and right coronary artery. Lymph Nodes: Numerous enlarged mediastinal lymph nodes are identified. Prominent paraesophageal lymph nodes and subcarinal lymphadenopathy is also seen. A dominant node/conglomeration of nodes anterior to the iliana measures 1.7 cm. Numerous other prominent lymph nodes measuring up to 1.6 cm are noted in the paratracheal regions. AP window lymphadenopathy up to 1.6 cm. Prevascular lymphadenopathy is also seen measuring up to 1.2 cm. Right hilar adenopathy versus mass measures approximately 3.0 x 1.5 cm. Mediastinum: Cardiomegaly. No large pericardial effusion. Median sternotomy wires. Post-surgical changes in the proximal aorta. Lungs: No pneumothorax or pneumomediastinum. A moderate size right pleural effusion and small left effusion with bronchial wall thickening, areas of ground-glass attenuation and extensive interlobular septal thickening. There is emphysematous change diffusely redemonstrated. Noncalcified nodules are again seen at the right base measuring up to approximately 8 mm. Noncalcified left base nodules are also again seen. Early consolidative changes are also suggested at the right base with areas of left base atelectasis and lingular atelectasis. Air bronchograms are noted at the anterior right base. There is pulmonary vascular congestion. Severe vascular calcifications in the partially imaged upper abdomen. Exam Date/Time: 01/12/2018 21:20 EDT Report Degenerative changes of the spine with no acute osseous finding. IMPRESSION: Interlobular septal thickening, ground-glass attenuation, and bronchial wall thickening with a moderate right and small left pleural effusion. Associated pulmonary vascular congestion and consolidation at the right base. Findings likely represent CHF and pulmonary edema however a superimposed infectious process is not excluded. Recommend continued clinical and radiographic follow-up. Noncalcified nodules at the lung bases are again identified for which follow-up per Fleischner criteria is recommended. Diffuse mediastinal lymphadenopathy as described above is nonspecific and may be partially reactive or related to a degree of lymphatic or vascular insufficiency, however underlying neoplasm is not excluded and continued attention on follow-up is recommended. FINAL REPORT Dictated: 01/13/2018 5:38 am Ren Abraham MD Signed (Electronic Signature): 01/13/2018 5:38 am Signed by: Ren Abraham MD Technologist: ADELIA, Observed: 01/12/2018 Status: F Source: TENRIISM C BLOOD 8:47 PM [facility] REPOSITORY Final Report: No growth at 5 Days Performed By: #### [id number] #### RHONDA Microbiology Automated Subsection [address] [place] [id number] Observed: 01/12/2018 Status: F Source: TENRIISM C BLOOD 8:47 PM [facility] REPOSITORY Final Report: No growth at 5 Days Performed By: #### [id number] #### RHONDA Microbiology Automated Subsection [address] [place] [address] XR CHEST AP PORTABLE Observed: 01/12/2018 Status: F Source: TENRIISM 8:35 PM [facility] REPOSITORY Exam Date/Time: 01/12/2018 20:40 EDT Reason for Exam: Difficulty breathing Report CHEST SINGLE VIEW: HISTORY: Respiratory distress. COMPARISON: Chest CT 07/21/2012. FINDINGS: Mild emphysema was much better detected on the chest CT. Small right pleural effusion with pleural thickening in the setting of diffuse bronchial wall thickening in both mid to lower lungs can be a reflection of COPD and/or acute bronchitis. Sternotomy. Atherosclerosis of the aorta and coronary arteries shown. No pneumothorax. IMPRESSION: 1. Mild emphysema was much better detected on the chest CT. 2. Small right pleural effusion with pleural thickening in the setting of diffuse bronchial wall thickening in both mid to lower lungs can be a reflection of COPD and/or acute bronchitis. 3. Sternotomy with coronary artery disease. FINAL REPORT Dictated: 01/13/2018 0:20 am Franck Fong MD Signed (Electronic Signature): 01/13/2018 0:20 am Signed by: Franck Fong MD Technologist: ERIC PARDO Collected: 01/12/2018 Status: F Source: TENRIISM 8:30 [facility] REPOSITORY TYPE CODE TESTS RESULT OUT OF RANGE REFERENCE UNITS LAB [id number](L 70-99 mg/dL OINC) High Glucose Lvl 138 LAB 77441692(L 7-18 mg/dL OINC) High BUN 82 LAB 8175423(LO 0.6-1.3 mg/dL INC) High Creatinine 2.5 LAB 70064291(L 5.4-30.0 ratio OINC) High BUN/Creat Ratio 32.8 LAB 42717684(L 8.4-10.2 mg/dL OINC) Calcium Normal Lvl 9.3 LAB 06937629(L 136-145 mEq/L OINC) Low Sodium Lvl 130 LAB 94317130(L 3.5-5.1 mEq/L OINC) High Potassium Lvl 5.8 LAB 93444647(L 98-107 mEq/L OINC) Chloride Normal 98 LAB 74033209(L 24.0-30.0 mEq/L OINC) Low CO2 19.0 Performed By: #### [id number] #### RHONDA [employer] [address] [place] [address] EGFR Collected: 01/12/2018 Status: F Source: TENRIISM 8:30 [facility] REPOSITORY Order Comment: Order added by Discern Expert. TYPE CODE TESTS RESULT OUT OF RANGE REFERENCE UNITS LAB 01209746(LO mL/min/1.73 INC) m2 Normal eGFR 26 LAB 01873831(LO mL/min/1.73 INC) m2 Normal eGFR AA 31 Performed By: #### [id number] #### RHONDA [employer] [address] [place] [address] TROPONIN-I Collected: 01/12/2018 Status: F Source: TENRIISM 8:30 PM [facility] REPOSITORY TYPE CODE TESTS RESULT OUT OF RANGE REFERENCE UNITS LAB 95122977(LO .00-.03 ng/mL INC) High .04 Troponin-I Result Comment: Critical Result Topponin I: Called to: EVELYN OSBORNE at: 21:07:17 by:ISRAEL Read back by:EVELYN OSBORNE Performed By: #### [id number] #### RHONDA [employer] [address] [place] [address] PT Collected: 01/12/2018 Status: F Source: TENRIISM 8:30 PM [facility] REPOSITORY TYPE CODE TESTS RESULT OUT OF RANGE REFERENCE UNITS LAB 58997810(LO 1.0-1.2 INC) Normal INR 1.1 Result Comment: INR Recommended Therapeuptic Ranges: Prophylaxis/treatment of DVT and PE?2.0-3.0 Prevention of systemic embolism?.2.0-3.0 Mechanical prosthetic values?2.5-3.5 CRITICAL VALUES?.>4.0 LAB 97559307(LOINC) 11.6-14.6 second(s) Normal 13.7 PT Performed By: #### [id number] #### RHONDA Hematology Automated Subsection [address] [place] [address] PTT Collected: 01/12/2018 Status: F Source: TENRIISM 8:30 PM [facility] REPOSITORY TYPE CODE TESTS RESULT OUT OF RANGE REFERENCE UNITS LAB [id number](LO 23.2-36.4 second(s) INC) Normal PTT 30.3 Performed By: #### [id number] #### RHONDA Hematology Automated Subsection [address] [place] [address] BNP. Collected: 01/12/2018 Status: F Source: TENRIISM 8:30 PM [facility] REPOSITORY TYPE CODE TESTS RESULT OUT OF RANGE REFERENCE UNITS LAB CD:[id number] <=100 pg/mL 67(LOINC) High BNP. 1011 Result Comment: Notice: Effective 03/30/2017 the methodology for BNP testing has changed. BNP values less than or equal to 100 pg/mL is considered normal for patients without CHF.The decision threshold was determined by the 95% confidence limit of BNP concentration in the non-CHF population age 55 and older.It is recommended that a new baseline value be established using the new method if monitoring patient's BNP level. Performed By: #### :[id number] #### RHONDA [employer] [address] [place] [address] CBC W/ AUTO DIFF Collected: 01/12/2018 Status: F Source: TENRIISM 8:30 PM [facility] REPOSITORY TYPE CODE TESTS RESULT OUT OF RANGE REFERENCE UNITS LAB 28563610(L 3.6-11.0 E3/mcL OINC) High WBC 17.8 LAB 98487471(L 3.90-6.10 E6/mcL OINC) Normal RBC 4.44 LAB 17920738(L 13.5-18.0 G/DL OINC) Low Hgb 10.7 LAB 70876682(L 42.0-52.0 % OINC) Low Hct 34.7 LAB 47269826(L 11.5-14.5 % OINC) High RDW 19.0 LAB 93039909(L 27.0-31.0 pg OINC) Low MCH 24.2 LAB 86069129(L 33.0-37.0 G/DL OINC) Low MCHC 30.9 LAB 66114414(L 78.0-100.0 fL OINC) Normal MCV 78.2 LAB 77139150(L 7.4-11.0 fL OINC) Normal MPV 9.3 LAB 28800415(L 130-400 E3/mcL OINC) Normal Platelet 209 Performed By: #### [id number] #### RHONDA RemHemo [address] [place] [address] MANUAL DIFF Collected: 01/12/2018 Status: F Source: TENRIISM 8:30 PM [facility] REPOSITORY Order Comment: Order Added by Discern Expert. TYPE CODE TESTS RESULT OUT OF REFERENCE UNITS RANGE LAB 69318509( 37-75 % LOINC) Segs Man 88 High LAB 06362343( 14-48 % LOINC) Low Lymph Man 6 LAB 53738785( 1-11 % LOINC) Monocyte Man 4 Normal LAB 14138209( 0-5 % LOINC) Eos Man 2 Normal LAB 45327246( 0-1 % LOINC) Basophil Man 0 Normal LAB 89156795( LOINC) RBC Morph SEE Normal MORPHOLOGY LAB 19844022( LOINC) Hypochromasia 2+ Normal LAB 54600816( LOINC) Anisocytosis 1+ Normal Performed By: #### [id number] #### RHONDA VasquezHemo [address] [place] [address] ZZPLT MORPH Collected: 01/12/2018 Status: F Source: TENRIISM 8:30 PM [facility] REPOSITORY TYPE CODE TESTS RESULT OUT OF RANGE REFERENCE UNITS LAB 35484934(L OINC) Normal Platelet NORMAL Estimate LAB 40144689(L OINC) Normal Platelet Morph NORMAL Performed By: #### [id number] #### RHONDA RemHemo [address] [place] [address] .MANUAL ABS Collected: 01/12/2018 Status: F Source: TENRIISM 8:30 [facility] REPOSITORY Order Comment: Order Added by Discern Expert. TYPE CODE TESTS RESULT OUT OF RANGE REFERENCE UNITS LAB 44262909(L 1.4-6.5 10x3/ OINC) High Segs Abs Man 15.7 LAB 88865865(L 1.2-3.4 10x3/ OINC) Low Lymph Abs Man 1.1 LAB 24801800(L 0.0-0.7 10x3/ OINC) Normal [place] Abs Man 0.7 LAB 96384189(L 0.0-0.5 10x3/ OINC) Normal Eos Abs Man 0.4 LAB 08133688(L 0.0-0.2 10x3/ OINC) Normal Basophil Abs 0.0 Man Performed By: #### [id number] #### RHONDA RemHemo [address] [place] [address] PTT CONTROL RATIO Collected: 01/12/2018 Status: F Source: TENRIISM 8:30 PM [facility] REPOSITORY Order Comment: Order added by Discern Expert. TYPE CODE TESTS RESULT OUT OF RANGE REFERENCE UNITS LAB 76144066(LO 0.8-1.2 ratio INC) Normal PTT Ratio 1.0 Performed By: #### [id number] #### RHONDA Hematology Automated Subsection [address] [place] [address] BMP Collected: 01/12/2018 Status: F Source: TENRIISM 12:27 PM [facility] REPOSITORY TYPE CODE TESTS RESULT OUT OF RANGE REFERENCE UNITS LAB 10862690(L 70-99 mg/dL OINC) High Glucose Lvl 133 LAB 61064491(L 7-18 mg/dL OINC) High BUN 77 LAB 5738424(LO 0.6-1.3 mg/dL INC) High Creatinine 2.2 LAB 27083067(L 5.4-30.0 ratio OINC) High BUN/Creat Ratio 35.0 LAB 20965004(L 8.4-10.2 mg/dL OINC) Calcium Normal Lvl 9.5 LAB 74759760(L 136-145 mEq/L OINC) Low Sodium Lvl 130 LAB 96760000(L 3.5-5.1 mEq/L OINC) Normal Potassium Lvl 3.7 LAB 89248442(L 98-107 mEq/L OINC) Low Chloride 95 LAB 09812817(L 24.0-30.0 mEq/L OINC) CO2 Normal 24.7 Performed By: #### [id number] #### RHONDA Rem[employer] [facility] [place] [id number] EGFR Collected: 01/12/2018 Status: F Source: TENRIISM 12:27 [facility] REPOSITORY Order Comment: Order added by Discern Expert. TYPE CODE TESTS RESULT OUT OF RANGE REFERENCE UNITS LAB 09494785(LO mL/min/1.73 INC) m2 Normal eGFR 30 LAB 27490797(LO mL/min/1.73 INC) m2 Normal eGFR AA 36 Performed By: #### [id number] #### RHONDA [employer] [address] [address] BMP Collected: 01/05/2018 Status: F Source: TENRIISM 12:18 PM [facility] REPOSITORY TYPE CODE TESTS RESULT OUT OF RANGE REFERENCE UNITS LAB 37157534(L 70-99 mg/dL OINC) High Glucose Lvl 141 LAB 91872030(L 7-18 mg/dL OINC) High BUN 65 LAB 9786415(LO 0.6-1.3 mg/dL INC) High Creatinine 2.0 LAB 81137402(L 5.4-30.0 ratio OINC) High BUN/Creat Ratio 32.5 LAB 51773613(L 8.4-10.2 mg/dL OINC) High Calcium Lvl 10.4 LAB 17274264(L 136-145 mEq/L OINC) Low Sodium Lvl 134 LAB 00627070(L 98-107 mEq/L OINC) Low Chloride 91 LAB 67122235(L 24.0-30.0 mEq/L OINC) High CO2 30.9 LAB 42858248(L 3.5-5.1 mEq/L OINC) Abnormal Potassium Lvl 2.7 Alert Result Comment: Critical Result K: Called to: EZEQUIEL NOVAK at: 12:45:20 by:LELA Read back by:EZEQUIEL NOVAK Performed By: #### [id number] #### RHONDA [employer] [facility] [place] [address] EGFR Collected: 01/05/2018 Status: F Source: TENRIISM 12:18 PM [facility] REPOSITORY Order Comment: Order added by Discern Expert. TYPE CODE TESTS RESULT OUT OF RANGE REFERENCE UNITS LAB 05337929(LO mL/min/1.73 INC) m2 Normal eGFR 34 LAB 17574123(LO mL/min/1.73 INC) m2 Normal eGFR AA 41 Performed By: #### [id number] #### RHONDA [employer] [address] [place] [address] BMP Collected: 12/22/2017 Status: F Source: TENRIISM 12:02 [facility] REPOSITORY TYPE CODE TESTS RESULT OUT OF RANGE REFERENCE UNITS LAB 67361315(L 70-99 mg/dL OINC) High Glucose Lvl 124 LAB 09286460(L 7-18 mg/dL OINC) High BUN 19 LAB 2911452(LO 0.6-1.3 mg/dL INC) Normal Creatinine 1.2 LAB 49349001(L 5.4-30.0 ratio OINC) Normal BUN/Creat Ratio 15.8 LAB 31026059(L 8.4-10.2 mg/dL OINC) Calcium Normal Lvl 8.9 LAB 86083021(L 136-145 mEq/L OINC) Low Sodium Lvl 135 LAB 37501225(L 3.5-5.1 mEq/L OINC) Normal Potassium Lvl 3.7 LAB 61210540(L 98-107 mEq/L OINC) Chloride Normal 102 LAB 70907678(L 24.0-30.0 mEq/L OINC) CO2 Normal 24.6 Performed By: #### [id number] #### RHONDA [employer] [address] [id number] EGFR Collected: 12/22/2017 Status: F Source: TENRIISM 12:02 [facility] REPOSITORY Order Comment: Order added by Discern Expert. TYPE CODE TESTS RESULT OUT OF RANGE REFERENCE UNITS LAB 60285581(LO mL/min/1.73 INC) m2 Normal eGFR >60 LAB 19580825(LO mL/min/1.73 INC) m2 Normal eGFR AA >60 Performed By: #### [id number] #### RHONDA [employer] [facility] [place] [address] BMP Collected: 12/07/2017 Status: F Source: TENRIISM 12: [facility] REPOSITORY TYPE CODE TESTS RESULT OUT OF RANGE REFERENCE UNITS LAB 89362183(L 70-99 mg/dL OINC) High Glucose Lvl 120 LAB 79759808(L 8.4-10.2 mg/dL OINC) Calcium Normal Lvl 9.0 LAB 83479070(L 136-145 mEq/L OINC) Sodium Normal Lvl 136 LAB 73925569(L 3.5-5.1 mEq/L OINC) Normal Potassium Lvl 4.0 LAB 76796776(L 98-107 mEq/L OINC) Chloride Normal 103 LAB 97865023(L 24.0-30.0 mEq/L OINC) CO2 Normal 25.4 LAB 82669453(L 7-18 mg/dL OINC) High BUN 29 LAB 4931136(LO 0.6-1.3 mg/dL INC) High Creatinine 1.4 LAB 53268416(L 5.4-30.0 ratio OINC) Normal BUN/Creat Ratio 20.7 Performed By: #### [id number] #### RHONDA [employer] [facility] [place] [id number] EGFR Collected: 12/07/2017 Status: F Source: TENRIISM 12:09 [facility] REPOSITORY Order Comment: Order added by Discern Expert. TYPE CODE TESTS RESULT OUT OF RANGE REFERENCE UNITS LAB 06196435(LO mL/min/1.73 INC) m2 Normal eGFR 51 LAB 80892232(LO mL/min/1.73 INC) m2 Normal eGFR AA >60 Performed By: #### [id number] #### RHONDA [employer] [address] [place] [address] BNP. Collected: 12/07/2017 Status: F Source: TENRIISM 12:09 PM [facility] REPOSITORY TYPE CODE TESTS RESULT OUT OF RANGE REFERENCE UNITS LAB CD:76781898 <=100 pg/mL 67(LOINC) High BNP. 289 Result Comment: Notice: Effective 03/30/2017 the methodology for BNP testing has changed. BNP values less than or equal to 100 pg/mL is considered normal for patients without CHF.The decision threshold was determined by the 95% confidence limit of BNP concentration in the non-CHF population age 55 and older.It is recommended that a new baseline value be established using the new method if monitoring patient's BNP level. Performed By: #### [id number] #### RHONDA Laura [employer] [facility] [place] [address] BMP Collected: 11/30/2017 Status: F Source: TENRIISM 1:49 PM [facility] REPOSITORY TYPE CODE TESTS RESULT OUT OF RANGE REFERENCE UNITS LAB 42988895(L 70-99 mg/dL OINC) High Glucose Lvl 138 LAB 48264358(L 8.4-10.2 mg/dL OINC) Calcium Normal Lvl 9.3 LAB 64694870(L 136-145 mEq/L OINC) Sodium Normal Lvl 138 LAB 01044711(L 3.5-5.1 mEq/L OINC) Normal Potassium Lvl 4.4 LAB 96752031(L 98-107 mEq/L OINC) Chloride Normal 106 LAB 31973556(L 24.0-30.0 mEq/L OINC) CO2 Normal 25.9 LAB 51980128(L 7-18 mg/dL OINC) High BUN 30 LAB 5152468(LO 0.6-1.3 mg/dL INC) Normal Creatinine 1.2 LAB 57304735(L 5.4-30.0 ratio OINC) Normal BUN/Creat Ratio 25.0 Performed By: #### [id number] #### RHONDA [facility] [address] [place] [address] EGFR Collected: 11/30/2017 Status: F Source: TENRIISM 1:49 PM [facility] REPOSITORY Order Comment: Order added by Discern Expert. TYPE CODE TESTS RESULT OUT OF RANGE REFERENCE UNITS LAB 95337693(LO mL/min/1.73 INC) m2 Normal eGFR >60 LAB 73355502(LO mL/min/1.73 INC) m2 Normal eGFR AA >60 Performed By: #### [id number] #### RHONDA [facility] [address] [place] [address] ALLERGIES ALLERGIES DATE TYPE / NAME / CODE REACTION SEVERITY SOURCE CODE 10/26/2018 Drug zolpidem/Q5093697 made me go SV Eddie Allergy/41 46(RXNORM) vale, neha [facility] 5868303([facility]) Repository 10/26/2018 Drug irbesartan/F28714 blisters SV Eddie Allergy/41 6921(RXNORM) [facility] 1988439([facility]) Repository 01/23/2018 DRUG ZOLPIDEM Anaphylaxis [place] [address] Three Repository 7643479([facility]) 07/16/2015 DRUG IRBESARTAN Hives [place] [address] Three Repository 5512374([facility]) Drug/85516 amoxicillin 260120437 [facility] 100[facility]) System Repository Drug/72639 Avapro 6661948 [facility] 1003([facility]) System Repository ENCOUNTERS ENCOUNTERS ADMIT/DISCHARGE ACCOUNT NUMBER ADMITTING ENCOUNTER LOCATION SOURCE CLASS 10/26/2018 [id number] Ambulatory [facility] ding:MEDOUTP Repository 10/25/2018 [id number] [facility]ulatory [facility] ding:LABSPEC Repository 10/19/2018 [id number] [facility] ding:PT Repository 10/19/2018/10/19/19 [id number] Ambulatory BMSBuilding: Cos[place] 19 BMS.[facility] Repository 10/05/2018/10/05/20 [id number] Ambulatory BMSBuilding: [place] 18 BMS.[facility] Repository 09/28/2018/09/28/20 [id number] Ambulatory BMSBuilding: [place] 18 BMS.[facility] Repository 09/28/2018 [id number] Ambulatory BMSBuilding: Eddie BMS.CF.[facility] Repository 09/28/2018/09/28/20 [id number] Ambulatory [address] ding:CLSP Repository 09/19/2018 [id number] Ambulatory [facility] ding:PAVLAB Repository 09/19/2018/09/19/20 [id number] Ambulatory BMSBuilding: [place] 18 BMS.[facility] Repository 09/11/2018 [id number] Isaak, Ambulatory BMSBuilding: Eddie Kai F BMS.[facility] Repository 09/11/2018/09/13/20 [id number] Isaak, Inpatient [place] [address] Kai F [facility] ding:PCURoom Repository : MUC605Dki: 1 09/11/2018 [id number] Isaak, Ambulatory BMSBuilding: Eddie Kai F BMS.[facility] Repository 09/11/2018 [id number] Isaak, Ambulatory BMSBuilding: Eddie Kai F BMS.[facility] Repository 08/31/2018/08/31/20 [id number] Ambulatory [address] ding:SDCRoom Repository : AC06 08/31/2018/08/31/20 [id number] Ambulatory BMSBuilding: Eddie 18 BMS.CF.[facility] Repository 08/30/2018 [id number] Ambulatory [facility] [place] Rep[place] ing:Nicolette fitzpatrick 08/30/2018/08/30/20 [id number] [facility] [address] [facility]Nicolette Fraireoom: Procedure 08/22/2018/08/22/20 [id number] Florin Blas [address] ding:[facility] Repository 08/22/2018 [id number] Ambulatory [address] [place] [address] Repository 08/17/2018/08/17/20 [id number] Ambulatory BMSBuilding: Eddie 18 BMS.[facility] Repository 08/16/2018/08/16/20 [id number] Florin Blas Ambulatory [address] [facility] Repository ing:Nicolette Fraireoom: Room 1 08/03/2018 [id number] Ambulatory BMSBuilding: Eddie BMS.CF.[facility] Repository 08/03/2018 [id number] Ambulatory [facility] ding:[facility] Repository 07/25/2018/07/25/20 [id number] Ambulatory BMSBuilding: Eddie 18 BMS.[facility] Repository 07/23/2018/07/25/20 [id number] [place] [facility] [address] ding:PCURoom Repository : SIJ412Hlv: 1 07/23/2018 [id number] [place] Ambulatory BMSBuilding: Eddie Chris BMS.[facility] Repository 07/23/2018 [id number] [place] Ambulatory BMSBuilding: Eddie Chris BMS.CF.[facility] Repository 07/23/2018 [id number] [place] Ambulatory BMSBuilding: [place] Chris BMS.[facility] Repository 07/23/2018 [id number] [place] Ambulatory BMSBuilding: [place] Chris BMS.[facility] Repository 07/11/2018 [id number] Ambulatory BMSBuilding: [place] BMS.CF.[facility] Repository 07/11/2018 [id number] Ambulatory [facility] ding:[facility] Repository 07/05/2018/07/05/20 [id number] Emergency [address] ding:ED Repository 06/29/2018/06/29/20 [id number] Ambulatory BMSBuilding: [place] 18 BMS.[facility] Repository 06/23/2018 [id number] Ambulatory [facility] ding:LABSPEC Repository 05/19/2018/05/19/20 [id number] Ambulatory [address] MDBuilding:[facility] Repository 05/17/2018/05/26/20 [id number] Ambulatory BMSBuilding: [place] 18 [facility] Repository 05/16/2018 [id number] Ambulatory BMSBuilding: Eddie BMS.[facility] Repository 05/15/2018/05/26/20 [id number] [place], Inpatient [address] ding:PCURoom Repository : [id number]: 1 05/15/2018 [id number] [place], Ambulatory BMSBuilding: Cos[place] Arnaldo BMS.[facility] Repository 05/15/2018 [id number] [place], Ambulatory BMSBuilding: [place] Arnaldo BMS.CF.[facility] Repository 05/15/2018 [id number] [place], Ambulatory BMSBuilding: Eddie Arnaldo BMS.[facility] Repository 05/15/2018 [id number] Jennings, Ambulatory BMSBuilding: [place] Arnaldo BMS.CF.[facility] Repository 05/15/2018 [id number] [place], Ambulatory BMSBuilding: [place] Arnaldo BMS.[facility] Repository 05/15/2018 [id number] [place], Ambulatory BMSBuilding: Eddie Arnaldo BMS.[facility] Repository 05/15/2018 [id number] [place], Ambulatory BMSBuilding: Eddie Arnaldo BMS.[facility] Repository 05/15/2018 [id number] [place], Ambulatory BMSBuilding: [place] Arnaldo BMS.CF.[facility] Repository 05/15/2018 [id number] Jennings, Ambulatory BMSBuilding: Eddie Arnaldo BMS.[facility] Repository 05/15/2018 [id number] Jennings, Ambulatory BMSBuilding: [place] Arnaldo BMS.CF.[facility] Repository 05/15/2018 [id number] Jennings, Ambulatory BMSBuilding: Eddie Arnaldo BMS.CF.[facility] Repository 05/15/2018 [id number] Jennings, Ambulatory BMSBuilding: [place] Arnaldo BMS..[facility] Repository 05/15/2018 [id number] Jennings, Ambulatory BMSBuilding: Eddie Arnaldo BMS.[facility] Repository 05/15/2018 [id number] Jennings, Ambulatory BMSBuilding: [place] Arnaldo BMS.CF.[facility] Repository 05/15/2018 [id number] [place], Ambulatory BMSBuilding: [place] Arnaldo BMS.CF.[facility] Repository 05/15/2018 [id number] [place], Ambulatory BMSBuilding: Eddie Arnaldo BMS.[facility] Repository 05/15/2018 [id number] Jennings, Ambulatory BMSBuilding: Eddie Arnaldo BMS..[facility] Repository 05/15/2018 [id number] Jennings, Ambulatory BMSBuilding: [place] Arnaldo BMS.[facility] Repository 05/15/2018 [id number] Jennings, Ambulatory BMSBuilding: [place] Arnaldo BMS.CF.[facility] Repository 05/15/2018 [id number] [place], Ambulatory BMSBuilding: Eddie Arnaldo BMS.[facility] Repository 05/15/2018 [id number] Jennings, Ambulatory BMSBuilding: Eddie Arnaldo BMS.[facility] Repository 05/15/2018/05/26/20 [id number] Ambulatory BMSBuilding: Eddie 18 [facility] Repository 05/15/2018/05/26/20 [id number] Ambulatory BMSBuilding: Eddie 18 BMS.CF.[facility] Repository 05/15/2018/05/26/20 [id number] Ambulatory BMSBuilding: Cos[place] 18 [facility] Repository 05/15/2018 [id number] Ambulatory BMSBuilding: Cosby BMS.[facility] Repository 05/10/2018/05/13/20 [id number] [place], Inpatient Cosby [address] Hospital ding:PCURoom Repository : [id number]: 1 05/10/2018 [id number] [place], Ambulatory BMSBuilding: Eddie [place] BMS.[facility] Repository 05/10/2018 [id number] [place], Ambulatory BMSBuilding: Cosby [place] BMS.CF.[facility] Repository 05/10/2018 [id number] [place], Ambulatory BMSBuilding: Cosby [place] BMS.CF.[facility] Repository 05/10/2018 [id number] [place], Ambulatory BMSBuilding: Eddie [place] BMS.[facility] Repository 05/10/2018 [id number] [place], Ambulatory BMSBuilding: Eddie [place] BMS.[facility] Repository 05/10/2018 [id number] [place], Ambulatory BMSBuilding: Cosby [place] BMS.CF.[facility] Repository 05/10/2018 [id number] [place], Ambulatory BMSBuilding: Cosby [place] BMS.[facility] Repository 05/10/2018/05/13/20 [id number] Ambulatory BMSBuilding: Cosby [address] [place] [address] Repository 05/10/2018/05/13/20 [id number] Ambulatory BMSBuilding: Eddie [address] [place] [address] Repository 05/01/2018/05/04/20 [id number] Dick, Inpatient Eddie [address] ding:PCURoom Repository : SMS314Mqu: 1 05/01/2018 [id number] Dick, Ambulatory BMSBuilding: Cosby Arnaldo BMS.[facility] Repository 05/01/2018 [id number] Dick, Ambulatory BMSBuilding: Eddie Arnaldo BMS.[facility] Repository 05/01/2018 [id number] Dick, Ambulatory BMSBuilding: Eddie Arnaldo BMS.[facility] Repository 05/01/2018 [id number] Ambulatory BMSBuilding: Eddie BMS.[facility] Repository 04/18/2018 [id number] [facility] ding:NM Repository 04/18/2018 [id number] Ambulatory Building:[facility] Repository 04/17/2018 [id number] [facility] 04/12/2018/04/12/20 [id number] Ambulatory Building:[address] Repository 04/12/2018 [id number] [facility] ding:LAB.FUT Repository URE 04/08/2018/04/10/20 [id number] Edith, Shay Inpatient [address] ding:YN7Dkco Repository : FM605Ksa: 1 04/08/2018 [id number] Edith, Shay Ambulatory BMSBuilding: [facility] Repository 04/08/2018 [id number] Edith, Shay Ambulatory BMSBuilding: Eddie BMS.[facility] Repository 04/08/2018 [id number] Edith, Shay Ambulatory BMSBuilding: Eddie BMS.[facility] Repository 04/08/2018/04/10/20 [id number] Ambulatory BMSBuilding: [address] Repository 04/07/2018 [id number] Edith, Shay Ambulatory BMSBuilding: Eddie BMS.[facility] Repository 04/07/2018 [id number] Edith, Shay Ambulatory BMSBuilding: Cosby BMS.[facility] Repository 04/07/2018 [id number] Edith, Shay Ambulatory BMSBuilding: Cosby BMS.[facility] Repository 04/05/2018/04/06/20 [id number] Emergency [address] ding:ED Repository 04/03/2018/04/03/20 [id number] 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 Peace Inpatient [place] [address] Kai Bhardwaj Encounter lding:A20B [facility] Shyanne : A20B [facility] 2001Bed: Repository A20B 03/20/2018 [id number] [facility] Repository 03/17/2018/03/17/20 [id number] Ambulatory Building:[place] [address] RM One Repository 03/17/2018 [id number] Ambulatory Building:[facility] [address] Repository 03/16/2018/03/20/[id number] Clotilde Inpatient [place] [address] Ahmed M Encounter lding:B21 [facility]ner and [facility] oom: B21 [facility] 2101Bed: B21 Repository [id number] 03/16/2018/03/16/20 [id number] Wong Berger Ambulatory [address] ding:[facility] Repository 03/16/2018 [id number] Ambulatory [address] [place] [address] Repository 03/06/2018 [id number] Ambulatory Building:[facility] Three D Repository 03/06/2018 [id number] Ambulatory Building:[facility] Repository 02/08/2018/02/09/20 [id number] WONG BERGER Ambulatory [address] Repository 02/06/2018 [id number] Ambulatory Building:[facility] Three D Repository 02/01/2018 [id number] Ambulatory Building:[facility] Three D Repository 01/28/2018/01/31/20 [id number] Tereletsky, Inpatient Cosby Eddie 18 Robyn Encounter [facility] ding:PCURoom Repository : [id number]: 1 01/28/2018 [id number] Tereletsky, Ambulatory BMSBuilding: Cosby Robyn BMS.[facility] Repository 01/28/2018 [id number] Tereletsky, Ambulatory BMSBuilding: Cosby Robyn BMS.[facility] Repository 01/28/2018 [id number] Tereletsky, Ambulatory BMSBuilding: Eddie Robyn BMS.[facility] Repository 01/24/2018/01/25/20 [id number] Ambulatory Building:[place] [address] [address] Three Repository 01/24/2018 [id number] Ambulatory Building:[facility] [address] Repository 01/23/2018 [id number] Miranda, Ambulatory [facility] Repository 01/23/2018/01/24/20 [id number] Ambulatory Building:[facility] 18 HRTFAILGLESS Three NER Repository 01/18/2018/01/19/20 [id number] Ambulatory Building:LAB [place] [address] [facility]H One Repository 01/14/2018/01/19/[id number] Koko Inpatient [place] [address] [place] Encounter lding:B41 Dee das Yue OrthoRoom: Shyanne B41 4122Bed: [facility] B41 514223 Repository 01/12/2018/01/15/20 [id number] Iftikhar, Inpatient [facility] 18 Bertin Bin [facility]counter [facility] ding[facility] NRoom: Repository 0337Bed: 01/12/2018 [id number] [facility] Three D Repository 01/10/2018 [id number] Ambulatory Building:[facility] HCNHAMILTONR Three D Repository 12/30/2017 [id number] Ambulatory Building:[facility] MOHCCENTERST Three Repository 12/23/2017 [id number] [facility] Three D Repository 12/01/2017 [id number] [facility] D Repository 11/30/2017/06/23/20 [id number] James, Ambulatory [facility] 18 [facility] Regional ding:[facility] Repository PAYERS PAYERS ENCOUNTER GUARANTOR PAYER SUBSCRIBER SOURCE 10/26/2018 ANGELINA GIMENEZ Primary ANGELINA Morgan Jr.8847 TR Insurance:JOSE FRANCISCO Smith: Community [address], MEDICARE PPOPolicy [id number] Health Care Center [address]Phc: Number: Repository [id number] (HP) Date:2765-69-65LU[address] [address]ZJ: 10/26/2018 Secondary NOT SENA Morgan Insurance:SELF PAY [facility] Number: Effective Repository Date:2018-10-25 10/25/2018 ANGELINA GIMENEZ Primary NOT SENA Morgan Jr.8847 TR Insurance:SELF PAY Community [address] [place] [address]Toe: Number: Effective Repository Date:2018-10-25 (HP) 10/19/2018 ANGELINA J MASHAYNE Primary ANGELINA J LON Cosby Jr.8847 TR Insurance:HUMANA JrFlavia: Community [address], MEDICARE PPOPolicy [id number] Health Care Center [address]Rch: Number: Repository [id number] (HP) Date:6891-45-50[place] [address]WP: 10/19/2018 Secondary NOT GIVENUNK Cosby Insurance:SELF PAY [facility] Number: Effective Repository Date:2018-10-05 10/19/2018 ANGELINA J VANDYNE Primary ANGELINA J LON Cos[place] Jr.8847 TR Insurance:HUMANA JrFlavia: Community [address], MEDICARE PPOPolicy [id number] Health Care Center [address]Yve: Number: Repository [id number] (HP) Date:4164-00-89MK [address] [address]LM: 10/19/2018 Secondary NOT GIVENUNK Eddie Insurance:SELF PAY [facility] Number: Effective Repository Date:2018-10-19 10/05/2018 ANGELINA J VANDYNE Primary ANGELINA J LON [place] Jr.8847 TR Insurance:HUMANA Jr.: Community [address], MEDICARE PPOPolicy [id number] Health Care Center [address]Iow: Number: Repository [id number] (HP) Date:6158-76-76UU [address] [address]AZ: 10/05/2018 Secondary NOT GIVENUNK Cosby Insurance:SELF PAY [facility] Number: Effective Repository Date:2018-10-05 09/28/2018 ANGELINA J VANDYNE Primary ANGELINA J LON Eddie Jr.8847 TR Insurance:HUMANA JrFlavia: Community [address], MEDICARE PPOPolicy [id number] [place] [address]Pph: Number: Repository [id number] (HP) Date:8752-28-31RC [address] [address]HG: 09/28/2018 Secondary NOT GIVENUNK Eddie Insurance:SELF PAY [facility] Number: Effective Repository Date:2018-09-28 09/28/2018 ANGELINA J VANDYNE Primary ANGELINA J VANDYNE Eddie Jr.8847 TR Insurance:HUMANA Jr.: Community [address], MEDICARE PPOPolicy [id number] [place] [address]Kau: Number: Repository [id number] (HP) Date:0450-47-60YJ [address] [address]AI: 09/28/2018 Secondary NOT GIVENUNK Cosby Insurance:SELF PAY [facility] Number: Effective Repository Date:2018-09-28 09/28/2018 ANGELINA J VANDYNE Primary ANGELINA J VANDYNE Cosby Jr.8847 TR Insurance:HUMANA Jr.: Community [address], MEDICARE PPOPolicy [id number] Health Care Center [address]Bec: Number: Repository [id number] (HP) Date:1912-11-02UK [address] [address]BV: 09/28/2018 Secondary NOT GIVENUNK Eddie Insurance:SELF PAY [facility] Number: Effective Repository Date:2018-09-19 09/19/2018 ANGELINA J VANDYNE Primary ANGELINA J VANDYNE Cosby Jr.8847 TR Insurance:HUMANA Jr.: Community [address], MEDICARE PPOPolicy [id number] Health Care Center [address]Smu: Number: Repository [id number] (HP) Date:1788-30-00QT [address] [address]CN: 09/19/2018 Secondary NOT GIVENUNK Cosby Insurance:SELF PAY [facility] Number: Effective Repository Date:2018-09-19 09/19/2018 ANGELINA J VANDYNE Primary ANGELINA J VANDAMY Cos[place] Jr.8847 TR Insurance:HUMANA Jr.: [place] [address], MEDICARE PPOPolicy [id number] [place] [address]Iku: Number: Repository [id number] (HP) Date:4511-61-76LM [address] [address]ND: 09/19/2018 Secondary NOT GIVENUNK Cosby Insurance:SELF PAY [facility] Number: Effective Repository Date:2018-09-19 09/11/2018 ANGELINA J VANDYNE Primary ANGELINA J VANDAMY Cos[place] Jr.8847 TR Insurance:HUMANA Jr.: [place] [address], MEDICARE PPOPolicy [id number] [place] [address]Hzg: Number: Repository [id number] (HP) Date:9618-56-79NU [address] [address]YP: 09/11/2018 Secondary NOT GIVENUNK Eddie Insurance:SELF PAY [facility] Number: Effective Repository Date:2018-09-11 09/11/2018 ANGELINA J VANDYNE Primary ANGELINA J VANDAMY Cos[place] Jr.8847 TR Insurance:HUMANA Jr.: [place] [address], MEDICARE PPOPolicy [id number] [place] [address]Eua: Number: Repository [id number] (HP) Date:3810-34-91OL [address] [address]PX: 09/11/2018 Secondary NOT GIVENUNK Cosby Insurance:SELF PAY [facility] Number: Effective Repository Date:2018-09-11 09/11/2018 ANGELINA J VANDYNE Primary ANGELINA J VANDYNE Eddie Jr.8847 TR Insurance:HUMANA Jr.: Community [address], MEDICARE PPOPolicy [id number] [place] [address]Qcb: Number: Repository [id number] (HP) Date:7810-44-15QM [address] [place] [address]NZ: 09/11/2018 Secondary NOT GIVENUNK Cosby Insurance:SELF PAY [facility] Number: Effective Repository Date:2018-09-11 09/11/2018 ANGELINA J VANDYNE Primary ANGELINA J VANDYNE Eddie Jr.8847 TR Insurance:HUMANA Jr.: Community [address], MEDICARE PPOPolicy [id number] Health Care Center [address]Ovj: Number: Repository [id number] (HP) Date:6395-69-11IX [address] [place] [address]RT: 09/11/2018 Secondary NOT GIVENUNK Eddie Insurance:SELF PAY [facility] Number: Effective Repository Date:2018-09-11 08/31/2018 ANGELINA J VANDYNE Primary ANGELINA J VANDYNE Eddie Jr.8847 TR Insurance:HUMANA Jr.: Community [address], MEDICARE PPOPolicy [id number] Health Care Center [address]Fmq: Number: Repository [id number] (HP) Date:7389-21-17WB [address] [place] [address]BV: 08/31/2018 Secondary NOT GIVENUNK Cosby Insurance:SELF PAY [facility] Number: Effective Repository Date:2018-08-17 08/31/2018 ANGELINA J VANDYNE Primary ANGELINA J VANDYNE Cosby Jr.8847 TR Insurance:HUMANA Jr.: Community [address], MEDICARE PPOPolicy [id number] Health Care Center [address]Ovw: Number: Repository [id number] (HP) Date:7762-41-23SM [address] [place] [address]HI: 08/31/2018 Secondary NOT GIVENUNK Eddie Insurance:SELF PAY Community [facility] Number: Effective Repository Date:2018-08-31 08/30/2018 ANGELINA LON Primary ANGELINATOM Douglas JrDOB: Insurance:[birth year] JrDOB: [facility] HUMANAPolicy Number: [id number] System [facility] Effective [address] Repository [address] [place] [address], Date:2018-08-30 - [address] [place] [address] 7853-29-31[place]k [place] [address]Aqe: Name:CD:[id number].O. [address]Ymq: [address]LYWXZXKIT, (HP) [place] [address]RY: (800) (HP) 000-0000 (WP) 08/30/2018 ANGELINATOM GIMENEZ Primary ANGELINATOM Douglas JrDOB: Insurance:[birth year] JrDOB: [facility] HUMANAPolicy Number: [id number] System [facility] Effective [address] Repository [address] [place] [address], Date:2018-08-16 - [address] [place] [address] 6833-47-87Lgfh [place] [address]Kzq: Name:CD:[id number].O. [address]Oet: [address] [place] [address], (HP) [place] [address]QU: (800) (HP) 000-0000 (WP) 08/22/2018 ANGELINA LON Primary ANGELINATOM Douglas JrDOB: Insurance:HUMANAPolic JrDOB: [facility] y Number: Effective [id number] System [facility] [address] [address] Date:2018-08-[address] Repository [address] [place] [address], 6366-02-14Vssk [address] [place] [address] Name:CD:[id number] [address]Wjk: [address] [place] [address]Oli: [id number]: (800) (HP) [phone] (HP) (WP) 08/22/2018 ANGELINA Primary ANGELINA SUMMERSB: Insurance:Humana Ken SUMMERSB: [facility] [id number] ChoicePolicy Number: [id number] Repository [facility] [id number] [address], Date:Plan Name:[address] [id number]: [place] [id number]: (HP) (HP) 08/17/2018 ANGELINA J LON Primary ANGELINA J LON Morgan Jr.8847 TR Insurance:HUMANRashida Smith: Community [address], MEDICARE PPOPolicy [id number] Health Care Center [address]Fwy: Number: Repository [id number] () Date:6899-04-22KT[address] [address]MY: 08/17/2018 Secondary NOT GIVENUNK Eddie Insurance:SELF PAY [facility] Number: Effective Repository Date:2018-08-07 08/16/2018 ANGELINA GIMENEZ Primary ANGELINA DaviesB: Insurance:Ivon JrDOB: [facility] [id number] [facility]Fill[facility] Centericy Number: [id number] System [facility] Effective 7 [facility] Repository [address] [place] [address], Date:2018-08-16 - [address] [place] [address] 8185-54-79Iuve [place] [address]Szv: Name:CD:[id number].O. [address]Cvm: [address] () [place] [address]PA: (904) (HP) 000-0000 (WP) 08/03/2018 ANGELINA J LON Primary ANGELINA Uzair Morgan Jr.8847 TR Insurance:HUMANA : Community [address], MEDICARE PPOPolicy [id number] Health Care Center [address]Tvj: Number: Repository [id number] (HP) Date:8019-94-74PM [address] [address]XW: 08/03/2018 Secondary NOT GIVENUNK Cosby Insurance:SELF PAY [facility] Number: Effective Repository Date:2018-08-03 08/03/2018 ANGELINA J VANDYNE Primary ANGELINA J VANDYNE Cosby Jr.8847 TR Insurance:HUMANA Jr.: Community [address], MEDICARE PPOPolicy [id number] Health Care Center [address]Ogo: Number: Repository [id number] (HP) Date:6138-47-32VQ [address] [address]IR: 08/03/2018 Secondary NOT GIVENUNK Eddie Insurance:SELF PAY [facility] Number: Effective Repository Date:2018-07-25 07/25/2018 ANGELINA J VANDYNE Primary ANGELINA J VANDYNE Cosby Jr.8847 TR Insurance:HUMANA Jr.: Community [address], MEDICARE PPOPolicy [id number] Health Care Center [address]Yfa: Number: Repository [id number] (HP) Date:1953-13-75UV [address] [address]UV: 07/25/2018 Secondary NOT GIVENUNK Cosby Insurance:SELF PAY [facility] Number: Effective Repository Date:2018-07-14 07/23/2018 ANGELINA J VANDYNE Primary ANGELINA J VANDYNE Cosby Jr.8847 TR Insurance:HUMANA Jr.: Community [address], MEDICARE PPOPolicy [id number] Health Care Center [address]Lbs: Number: Repository [id number] (HP) Date:8768-07-85KB [address] [address]BB: 07/23/2018 Secondary NOT GIVENUNK Eddie Insurance:SELF PAY [facility] Number: Effective Repository Date:2018-07-23 07/23/2018 ANGELINA J VANDYNE Primary ANGELINA J LON Morgan Jr.8847 TR Insurance:HUMANA Jr.: Community [address], MEDICARE PPOPolicy [id number] Health Care Center [address]Oqc: Number: Repository [id number] (HP) Date:6706-41-66DS [place] [address]WP: 07/23/2018 Secondary NOT GIVENUNK Eddie Insurance:SELF PAY [facility] Number: Effective Repository Date:2018-07-23 07/23/2018 ANGELINA J Primary ANGELINA J Eddieradha [id number] TR Insurance:HUMANA LONDOB: Community [address], MEDICARE PPOPolicy [id number] Health Care Center [address]Wxc: Number: Repository [id number] (HP) Date:1480-00-68[place] [address]WP: 07/23/2018 Secondary NOT GIVENUNK Eddie Insurance:SELF PAY [facility] Number: Effective Repository Date:2018-07-23 07/23/2018 ANGELINA J VANDYNE Primary ANGELINA J LON Morgan Jr.8847 TR Insurance:HUMANA Jr.: Community [address], MEDICARE PPOPolicy [id number] Health Care Center [address]Vsl: Number: Repository [id number] (HP) Date:0441-02-36TA [address] [address]MC: 07/23/2018 Secondary NOT GIVENUNK Eddie Insurance:SELF PAY [facility] Number: Effective Repository Date:2018-07-23 07/23/2018 ANGELINA J VANDYNE Primary ANGELINA J LON Morgan Jr.8847 TR Insurance:HUMANA Jr.: Community [address], MEDICARE PPOPolicy [id number] Health Care Center [address]Agm: Number: Repository [id number] (HP) Date:4460-49-76ZO [address] [address]QP: 07/23/2018 Secondary NOT GIVENUNK Eddie Insurance:SELF PAY [facility] Number: Effective Repository Date:2018-07-23 07/11/2018 ANGELINA J Primary ANGELINA J Cosby [id number] TR Insurance:HUMANA VANDYNEDOB: Community [address], MEDICARE PPOPolicy [id number] Health Care Center [address]Sfd: Number: Repository [id number] (HP) Date:7872-70-57RQ [address] [address]CQ: 07/11/2018 Secondary NOT GIVENUNK Eddie Insurance:SELF PAY [facility] Number: Effective Repository Date:2018-07-11 07/11/2018 ANGELINA J Primary ANGELINA J Cosby [id number] TR Insurance:HUMANA VANDYNEDOB: Community [address], MEDICARE PPOPolicy [id number] Health Care Center [address]Myt: Number: Repository [id number] (HP) Date:4643-98-30YQ [address] [address]ZM: 07/11/2018 Secondary NOT GIVENUNK Eddie Insurance:SELF PAY [facility] Number: Effective Repository Date:2018-06-29 07/05/2018 ANGELINA J Primary ANGELINA J Cosby [id number] TR Insurance:HUMANA VANDYNEDOB: Community [address], MEDICARE PPOPolicy [id number] Health Care Center [address]Dza: Number: Repository [id number] (HP) Date:6810-02-88FI [address] [address]HC: 07/05/2018 Secondary NOT GIVENUNK Cosby Insurance:SELF PAY [facility] Number: Effective Repository Date:2018-07-05 06/29/2018 YENNI J Primary YENNI J Cosby [id number] Insurance:HUMANA VANDYNEDOB: [facility] MEDICARE [facility] [id number], Number: Repository [place] [id number]: [id number] Date:5775-09-82QW BOX (HP) [address] [place] [address]VY: 06/29/2018 Secondary NOT GIVENUNK Cosby Insurance:SELF PAY [facility] Number: Effective Repository Date:2018-06-29 06/23/2018 YENNI J Primary NOT GIVENUNK Eddie [id number] TR Insurance:SELF PAY [address] [place] [address]Bac: Number: Effective Repository Date:2018-06-23 () 05/19/2018 ANGELINA VANDYNE Primary ANGELINA VANDYNE Restoration JrDOB: Insurance:[birth year] HUMANA JrDOB: [facility] [id number] CHOICE MEDICAREPolicy [id number] [place] [address] Number: Effective 7 [facility] Repository [address] [place] [address], Date:2017-11-04 - [address] [place] [id number]: 3096-32-35Lkns [place] [id number]: Name:CD:[id number] () [address] [place] [address] ()Tel: (694) [phone]: () [phone] 05/17/2018 YENNI J Primary YENNI J Eddie [id number] Insurance:HUMANA VANDYNEDOB: [facility] MEDICARE [facility] [id number], Number: Repository [place] [id number]: [id number] Date:2940-25-78KZ BOX () [address] [place] [address]IP: 05/17/2018 Secondary NOT GIVENUNK Cosby Insurance:SELF PAY [facility] Number: Effective Repository Date:2018-05-17 05/16/2018 YENNI J Primary YENNI J Cosby [id number] TR Insurance:HUMANA VANDYNEDOB: Community [address], MEDICARE PPOPolicy [id number] Health Care Center [address]Bul: Number: Repository [id number] (HP) Date:3649-24-84AU [address] [address]IR: 05/16/2018 Secondary NOT GIVENUNK Eddie Insurance:SELF PAY [facility] Number: Effective Repository Date:2018-04-24 05/15/2018 YENNI J Primary YENNI J Eddie [id number] TR Insurance:HUMANA VANDYNEDOB: [place] [address], MEDICARE PPOPolicy [id number] Health Care Center [address]Cbs: Number: Repository [id number] (HP) Date:1372-12-80TL [address] [address]JD: 05/15/2018 Secondary NOT GIVENUNK Eddie Insurance:SELF PAY [facility] Number: Effective Repository Date:2018-05-15 05/15/2018 YENNI J Primary YENNI J Cosby [id number] TR Insurance:HUMANA VANDYNEDOB: [place] [address], MEDICARE PPOPolicy [id number] [place] [address]Kah: Number: Repository [id number] (HP) Date:0474-11-27GU [address] [address]XX: 05/15/2018 Secondary NOT GIVENUNK Cosby Insurance:SELF PAY [facility] Number: Effective Repository Date:2018-05-15 05/15/2018 YENNI J Primary YENNI J Cosby [id number] TR Insurance:HUMANA VANDYNEDOB: [place] [address], MEDICARE PPOPolicy [id number] [place] [address]Wdm: Number: Repository [id number] (HP) Date:5963-69-95JO [address] [address]JY: 05/15/2018 Secondary NOT GIVENUNK Cosby Insurance:SELF PAY [facility] Number: Effective Repository Date:2018-05-15 05/15/2018 YENNI J Primary YENNI J Cosby [id number] TR Insurance:HUMANA VANDYNEDOB: [address], MEDICARE PPOPolicy [id number] [place] [address]Vag: Number: Repository [id number] (HP) Date:8810-71-09MQ [address] [address]PQ: 05/15/2018 Secondary NOT GIVENUNK Eddie Insurance:SELF PAY [facility] Number: Effective Repository Date:2018-05-15 05/15/2018 YENNI J Primary YENNI J Cosby [id number] TR Insurance:HUMANA VANDYNEDOB: [address], MEDICARE PPOPolicy [id number] [place] [address]Ywr: Number: Repository [id number] (HP) Date:6651-85-35PA [address] [address]KQ: 05/15/2018 Secondary NOT GIVENUNK Eddie Insurance:SELF PAY [facility] Number: Effective Repository Date:2018-05-15 05/15/2018 YENNI J Primary YENNI J Eddie [id number] TR Insurance:HUMANA VANDYNEDOB: [place] [address], MEDICARE PPOPolicy [id number] [place] [address]Cnz: Number: Repository [id number] (HP) Date:[id number] [address] [address]DQ: 05/15/2018 Secondary NOT GIVENUNK Eddie Insurance:SELF PAY [facility] Number: Effective Repository Date:2018-05-15 05/15/2018 YENNI J Primary YENNI J Cosby [id number] TR Insurance:HUMANA VANDYNEDOB: [address], MEDICARE PPOPolicy [id number] [facility] [place] [id number]: Number: Repository [id number] (HP) Date:[id number] [address] [address]WP: 05/15/2018 Secondary NOT GIVENUNK Eddie Insurance:SELF PAY [facility] Number: Effective Repository Date:2018-05-15 05/15/2018 YENNI J Primary YENNI J Cosby [id number] TR Insurance:HUMANA VANDYNEDOB: Community [address], MEDICARE PPOPolicy [id number] Health Care Center [address]Vnh: Number: Repository [id number] (HP) Date:8595-86-75PK [address] [address]SW: 05/15/2018 Secondary NOT GIVENUNK Cosby Insurance:SELF PAY [facility] Number: Effective Repository Date:2018-05-15 05/15/2018 YENNI J Primary YENNI J Cosby [id number] TR Insurance:HUMANA VANDYNEDOB: Community [address], MEDICARE PPOPolicy [id number] Health Care Center [address]Fxx: Number: Repository [id number] (HP) Date:3427-92-85DS [address] [address]KF: 05/15/2018 Secondary NOT GIVENUNK Eddie Insurance:SELF PAY [facility] Number: Effective Repository Date:2018-05-15 05/15/2018 YENNI J Primary YENNI J Cosby [id number] TR Insurance:HUMANA VANDYNEDOB: [place] [address], MEDICARE PPOPolicy [id number] [place] [address]Uwv: Number: Repository [id number] (HP) Date:2271-87-33MS [address] [address]BQ: 05/15/2018 Secondary NOT GIVENUNK Cosby Insurance:SELF PAY [facility] Number: Effective Repository Date:2018-05-15 05/15/2018 YENNI J Primary YENNI J Eddie [id number] TR Insurance:HUMANA VANDYNEDOB: Community [address], MEDICARE PPOPolicy [id number] Health Care Center [address]Qwl: Number: Repository [id number] (HP) Date:7667-72-24TZ [address] [address]SW: 05/15/2018 Secondary NOT GIVENUNK Cosby Insurance:SELF PAY [facility] Number: Effective Repository Date:2018-05-15 05/15/2018 YENNI J Primary YENNI J Cosby [id number] TR Insurance:HUMANA VANDYNEDOB: Community [address], MEDICARE PPOPolicy [id number] Health Care Center [address]Ebt: Number: Repository [id number] (HP) Date:6096-38-64CN [address] [place] [address]AT: 05/15/2018 Secondary NOT GIVENUNK Eddie Insurance:SELF PAY [facility] Number: Effective Repository Date:2018-05-15 05/15/2018 YENNI J Primary YENNI J Cosby [id number] TR Insurance:HUMANA VANDYNEDOB: [place] [address], MEDICARE PPOPolicy [id number] Health Care Center [address]Imb: Number: Repository [id number] (HP) Date:9440-18-92NO [address] [address]WV: 05/15/2018 Secondary NOT GIVENUNK Eddie Insurance:SELF PAY [facility] Number: Effective Repository Date:2018-05-15 05/15/2018 YENNI J Primary YENNI J Cosby [id number] TR Insurance:HUMANA VANDYNEDOB: Community [address], MEDICARE PPOPolicy [id number] Health Care Center [address]Bcs: Number: Repository [id number] (HP) Date:0352-21-95VO [address] [place] [address]WU: 05/15/2018 Secondary NOT GIVENUNK Eddie Insurance:SELF PAY [facility] Number: Effective Repository Date:2018-05-15 05/15/2018 YENNI J Primary YENNI J Eddie [id number] TR Insurance:HUMANA VANDYNEDOB: [address], MEDICARE PPOPolicy [id number] [place] [address]Ens: Number: Repository [id number] (HP) Date:3271-13-21HZ [address] [address]CS: 05/15/2018 Secondary NOT GIVENUNK Cosby Insurance:SELF PAY [facility] Number: Effective Repository Date:2018-05-15 05/15/2018 YENNI J Primary YENNI J Eddie [id number] TR Insurance:HUMANA VANDYNEDOB: Community [address], MEDICARE PPOPolicy [id number] [place] [address]Rlv: Number: Repository [id number] (HP) Date:5041-82-41QS [address] [address]AK: 05/15/2018 Secondary NOT GIVENUNK Cosby Insurance:SELF PAY [facility] Number: Effective Repository Date:2018-05-15 05/15/2018 YENNI J Primary YENNI J Cosby [id number] TR Insurance:HUMANA VANDYNEDOB: [place] [address], MEDICARE PPOPolicy [id number] [place] [address]Lvg: Number: Repository [id number] (HP) Date:6446-48-73MW [address] [address]IW: 05/15/2018 Secondary NOT GIVENUNK Eddie Insurance:SELF PAY [facility] Number: Effective Repository Date:2018-05-15 05/15/2018 YENNI J Primary YENNI J Eddie [id number] TR Insurance:HUMANA VANDYNEDOB: [address], MEDICARE PPOPolicy [id number] [place] [address]Gde: Number: Repository [id number] (HP) Date:4636-62-99BJ [address] [place] [address]XM: 05/15/2018 Secondary NOT GIVENUNK Eddie Insurance:SELF PAY [facility] Number: Effective Repository Date:2018-05-15 05/15/2018 YENNI J Primary YENNI J Cosby [id number] TR Insurance:HUMANA VANDYNEDOB: Community [address], MEDICARE PPOPolicy [id number] Health Care Center [address]Clv: Number: Repository [id number] (HP) Date:5869-67-93JA [address] [address]MW: 05/15/2018 Secondary NOT GIVENUNK Eddie Insurance:SELF PAY [facility] Number: Effective Repository Date:2018-05-15 05/15/2018 YENNI J Primary YENNI J Cosby [id number] TR Insurance:HUMANA VANDYNEDOB: Community [address], MEDICARE PPOPolicy [id number] Health Care Center [address]Bfk: Number: Repository [id number] (HP) Date:1995-34-23YN [address] [address]XC: 05/15/2018 Secondary NOT GIVENUNK Eddie Insurance:SELF PAY [facility] Number: Effective Repository Date:2018-05-15 05/15/2018 YENNI J Primary YENNI J Cosby [id number] TR Insurance:HUMANA VANDYNEDOB: Community [address], MEDICARE PPOPolicy [id number] Health Care Center [address]Rxl: Number: Repository [id number] (HP) Date:5896-05-19CM [address] [address]GP: 05/15/2018 Secondary NOT GIVENUNK Eddie Insurance:SELF PAY [facility] Number: Effective Repository Date:2018-05-15 05/15/2018 YENNI J Primary YENNI J Cosby [id number] TR Insurance:HUMANA VANDYNEDOB: Community [address], MEDICARE PPOPolicy [id number] [place] [address]Jxf: Number: Repository [id number] (HP) Date:3228-26-85PI [address] [place] [address]UX: 05/15/2018 Secondary NOT GIVENUNK Eddie Insurance:SELF PAY [facility] Number: Effective Repository Date:2018-05-15 05/15/2018 YENNI J Primary YENNI J Cosby [id number] TR Insurance:HUMANA VANDYNEDOB: Community [address], MEDICARE PPOPolicy [id number] [place] [address]Ekx: Number: Repository [id number] (HP) Date:0018-98-63EG [address] [address]IK: 05/15/2018 Secondary NOT GIVENUNK Cosby Insurance:SELF PAY [facility] Number: Effective Repository Date:2018-05-15 05/15/2018 YENNI J Primary YENNI J Cosby [id number] TR Insurance:HUMANA VANDYNEDOB: [place] [address], MEDICARE PPOPolicy [id number] [place] [address]Gax: Number: Repository [id number] (HP) Date:2187-68-65KS [address] [address]TD: 05/15/2018 Secondary NOT GIVENUNK Cosby Insurance:SELF PAY [facility] Number: Effective Repository Date:2018-05-15 05/15/2018 YENNI J Primary YENNI J Cosby [id number] TR Insurance:HUMANA VANDYNEDOB: [place] [address], MEDICARE PPOPolicy [id number] [place] [address]Pun: Number: Repository [id number] (HP) Date:4192-03-20EL [address] [address]DZ: 05/15/2018 Secondary NOT GIVENUNK Eddie Insurance:SELF PAY [facility] Number: Effective Repository Date:2018-05-15 05/15/2018 YENNI J Primary YENNI J Eddie [id number] TR Insurance:HUMANA VANDYNEDOB: Community [address], MEDICARE PPOPolicy [id number] [place] [address]Awc: Number: Repository [id number] (HP) Date:6602-93-12TF [address] [address]OI: 05/15/2018 Secondary NOT GIVENUNK Eddie Insurance:SELF PAY [facility] Number: Effective Repository Date:2018-05-15 05/10/2018 YENNI J Primary YENNI J Eddie [id number] TR Insurance:HUMANA VANDYNEDOB: Community [address], MEDICARE PPOPolicy [id number] [place] [address]Ind: Number: Repository [id number] (HP) Date:5314-98-80HO [address] [address]QX: 05/10/2018 Secondary NOT GIVENUNK Eddie Insurance:SELF PAY [facility] Number: Effective Repository Date:2018-05-10 05/10/2018 YENNI J Primary YENNI J Cosby [id number] TR Insurance:HUMANA VANDYNEDOB: [place] [address], MEDICARE PPOPolicy [id number] [place] [address]Miz: Number: Repository [id number] (HP) Date:3991-73-58JW [address] [address]YP: 05/10/2018 Secondary NOT GIVENUNK Cosby Insurance:SELF PAY [facility] Number: Effective Repository Date:2018-05-10 05/10/2018 YENNI J Primary YENNI J Cosby [id number] TR Insurance:HUMANA VANDYNEDOB: Community [address], MEDICARE PPOPolicy [id number] [place] [address]Ssb: Number: Repository [id number] (HP) Date:8536-84-29ET [address] [address]VZ: 05/10/2018 Secondary NOT GIVENUNK Eddie Insurance:SELF PAY [facility] Number: Effective Repository Date:2018-05-10 05/10/2018 YENNI J Primary YENNI J Eddie [id number] TR Insurance:HUMANA VANDYNEDOB: Community [address], MEDICARE PPOPolicy [id number] [place] [address]Xuw: Number: Repository [id number] (HP) Date:5440-29-90TI [address] [address]US: 05/10/2018 Secondary NOT GIVENUNK Cosby Insurance:SELF PAY [facility] Number: Effective Repository Date:2018-05-10 05/10/2018 YENNI J Primary YENNI J Eddie [id number] TR Insurance:HUMANA VANDYNEDOB: Community [address], MEDICARE PPOPolicy [id number] [place] [address]Vre: Number: Repository [id number] (HP) Date:1894-42-72YW [address] [address]UO: 05/10/2018 Secondary NOT GIVENUNK Cosby Insurance:SELF PAY [facility] Number: Effective Repository Date:2018-05-10 05/10/2018 YENNI J Primary YENNI J Eddie [id number] TR Insurance:HUMANA VANDYNEDOB: [place] [address], MEDICARE PPOPolicy [id number] [place] [address]Due: Number: Repository [id number] (HP) Date:9237-38-59NE [address] [address]FU: 05/10/2018 Secondary NOT GIVENUNK Cosby Insurance:SELF PAY [facility] Number: Effective Repository Date:2018-05-10 05/10/2018 YENNI J Primary YENNI J Cosby [id number] TR Insurance:HUMANA VANDYNEDOB: Community [address], MEDICARE PPOPolicy [id number] Health Care Center [address]Qin: Number: Repository [id number] (HP) Date:6516-63-37OH [address] [address]OB: 05/10/2018 Secondary NOT GIVENUNK Cosby Insurance:SELF PAY [facility] Number: Effective Repository Date:2018-05-10 05/10/2018 YENNI J Primary YENNI J Cosby [id number] TR Insurance:HUMANA VANDYNEDOB: Community [address], MEDICARE PPOPolicy [id number] [place] [address]Fdy: Number: Repository [id number] (HP) Date:6583-99-52FY [address] [address]QE: 05/10/2018 Secondary NOT GIVENUNK Eddie Insurance:SELF PAY [facility] Number: Effective Repository Date:2018-05-10 05/10/2018 YENNI J Primary YENNI J Eddie [id number] TR Insurance:HUMANA VANDYNEDOB: [place] [address], MEDICARE PPOPolicy [id number] [place] [address]Qim: Number: Repository [id number] (HP) Date:3966-65-06XR [address] [address]YE: 05/10/2018 Secondary NOT GIVENUNK Eddie Insurance:SELF PAY [facility] Number: Effective Repository Date:2018-05-10 05/10/2018 YENNI J Primary YENNI J Eddie [id number] TR Insurance:HUMANA VANDYNEDOB: [place] [address], MEDICARE PPOPolicy [id number] [place] [address]Ryd: Number: Repository [id number] (HP) Date:4814-17-33WP [address] [address]US: 05/10/2018 Secondary NOT GIVENUNK Cosby Insurance:SELF PAY [facility] Number: Effective Repository Date:2018-05-10 05/01/2018 YENNI J Primary YENNI J Cosby [id number] TR Insurance:HUMANA VANDYNEDOB: [place] [address], MEDICARE PPOPolicy [id number] Health Care Center [address]Ifo: Number: Repository [id number] (HP) Date:9625-52-57IO [address] [address]DU: 05/01/2018 Secondary NOT GIVENUNK Eddie Insurance:SELF PAY [facility] Number: Effective Repository Date:2018-05-01 05/01/2018 YENNI J Primary YENNI J Cosby [id number] TR Insurance:HUMANA VANDYNEDOB: Community [address], MEDICARE PPOPolicy [id number] Health Care Center [address]Dkn: Number: Repository [id number] (HP) Date:5431-37-37HC [address] [address]KI: 05/01/2018 Secondary NOT GIVENUNK Cosby Insurance:SELF PAY [facility] Number: Effective Repository Date:2018-05-01 05/01/2018 YENNI J Primary YENNI J Cosby [id number] TR Insurance:HUMANA VANDYNEDOB: [place] [address], MEDICARE PPOPolicy [id number] [place] [address]Lnu: Number: Repository [id number] (HP) Date:8830-22-87VY [address] [address]QT: 05/01/2018 Secondary NOT GIVENUNK Cosby Insurance:SELF PAY [facility] Number: Effective Repository Date:2018-05-01 05/01/2018 YENNI J Primary YENNI J Eddie [id number] TR Insurance:HUMANA VANDYNEDOB: [place] [address], MEDICARE PPOPolicy [id number] [place] [address]Evq: Number: Repository [id number] (HP) Date:1836-07-65WT [address] [address]FM: 05/01/2018 Secondary NOT GIVENUNK Eddie Insurance:SELF PAY [facility] Number: Effective Repository Date:2018-05-01 05/01/2018 YENNI J Primary YENNI J Eddie [id number] TR Insurance:HUMANA VANDYNEDOB: [place] [address], MEDICARE PPOPolicy [id number] Health Care Center [address]Jsi: Number: Repository [id number] () Date:3552-05-22JJ [address] [place] [address]NT: 05/01/2018 Secondary NOT GIVENUNK Eddie Insurance:SELF PAY [facility] Number: Effective Repository Date:2018-05-01 04/18/2018 YENNI J Primary YENNI J Cosby [id number] TR Insurance:HUMANA VANDYNEDOB: [place] [address], MEDICARE PPOPolicy [id number] Health Care Center [address]Aoi: Number: Repository [id number] () Date:0404-15-64UA [address] [place] [address]QT: 04/18/2018 Secondary NOT GIVENUNK Eddie Insurance:SELF PAY [facility] Number: Effective Repository Date:2018-04-13 04/18/2018 ANGELINATOM GIMENEZ Primary ANGELINA GIMENEZ [facility] .: [facility] Three Repository [id number] icy Number: [id number] [facility] [id number] [address], Date:2013-07-[address] [place] [address]Zub: 9731-98-54PNJ J15 [place] [address]Gwf: PART A CLAIMSPO BOX () [address]VVEYZVLKA, [place] () [address]NU: 04/18/2018 Secondary ANGELINA GIMENEZ [facility] Insurance:HUMANA JR.: Three Repository MANAGED [id number] MED[address]Policy [address] Number: [address], [id number] [place] [address]Uoz: Date:7685-11-65AE [address] [place] [address] () [address]UO: 04/17/2018 ANGELINA VANDYNE Primary [facility].: Insurance:MEDICAREPol JR.: Three Repository icy Number: [id number] [facility] [id number] [address] [place] [address], Date:2013-07-17 - [address] [place] [address]Tlr: 3480-01-90EMP [address]15 [place] [address]Qku: PART A CLAIMSPO BOX (HP) [address]AIEPRHSKD, [place] () [address]NJ: 04/17/2018 [facility]:HU[facility]NA JR.: Three Repository MANAGED [id number] MEDICAREPolicy [address] Number: [address], [id number] [place] [address]Uox: Date:7055-61-86MF [address] [place] [address] () [address]JM: 04/12/2018 ANGELINA VANDYNE Primary ANGELINA [facility] .: Insurance:HUMANA JR.: Three Repository [id number] MANAGED [id number] MEDICAREPolicy [address], Number: [place], [place] [address]Kil: [id number] [place] [address]Rcv: Date:0641-02-16XP BOX () [address] [place] [address] () [address]HY: 04/12/2018 Secondary ANGELINA [facility] Health Insurance:HUMANA JR.: Three Repository MANAGED [id number] MEDIC[address]Policy [address] Number: 461[place]MICAELASELECT [facility] [id number] [place] [address]Bcw: Date:5596-72-49RE [address] [place] [address] () [address]CQ: 04/12/2018 YENNI J Primary YENNI J Cosby [id number] TR Insurance:HUMANA VANDYNEDOB: Community [address], MEDICARE PPOPolicy [id number] Health Care Center [address]Tvr: Number: Repository [id number] (HP) Date:5160-63-00FN [address] [place] [address]KW: 04/12/2018 Secondary NOT GIVENUNK Cosby Insurance:SELF PAY [facility] Number: Effective Repository Date:2018-04-12 04/08/2018 YENNI J Primary YENNI J Eddie [id number] TR Insurance:HUMANA VANDYNEDOB: Community [address], MEDICARE PPOPolicy [id number] [place] [address]Gqd: Number: Repository [id number] () Date:9757-02-46RI [address] [place] [address]DN: 04/08/2018 Secondary NOT GIVENUNK Cosby Insurance:SELF PAY [facility] Number: Effective Repository Date:2018-04-07 04/08/2018 YENNI J Primary YENNI J Cosby [id number] TR Insurance:HUMANA VANDYNEDOB: [place] [address], MEDICARE PPOPolicy [id number] [place] [address]Upm: Number: Repository [id number] (HP) Date:6280-72-95DT [address] [place] [address]MZ: 04/08/2018 Secondary NOT GIVENUNK Cosby Insurance:SELF PAY [facility] Number: Effective Repository Date:2018-04-08 04/08/2018 YENNI J Primary YENNI J Eddie [id number] TR Insurance:HUMANA VANDYNEDOB: [place] [address], MEDICARE PPOPolicy [id number] [place] [address]Ath: Number: Repository [id number] (HP) Date:2035-37-99CS [address] [place] [address]MM: 04/08/2018 Secondary NOT GIVENUNK Eddie Insurance:SELF PAY [facility] Number: Effective Repository Date:2018-04-08 04/08/2018 YENNI J Primary YENNI J Cosby [id number] TR Insurance:HUMANA VANDYNEDOB: [place] [address], MEDICARE PPOPolicy [id number] [place] [address]Vfz: Number: Repository [id number] (HP) Date:7648-27-62OE [address] [address]HK: 04/08/2018 Secondary NOT GIVENUNK Eddie Insurance:SELF PAY [facility] Number: Effective Repository Date:2018-04-08 04/08/2018 YENNI J Primary YENNI J Cosby [id number] TR Insurance:HUMANA VANDYNEDOB: Community [address], MEDICARE PPOPolicy [id number] [place] [address]Trd: Number: Repository [id number] (HP) Date:4098-56-00BJ [address] [address]GP: 04/08/2018 Secondary NOT GIVENUNK Eddie Insurance:SELF PAY [facility] Number: Effective Repository Date:2018-04-08 04/07/2018 YENNI J Primary YENNI J Cosby [id number] TR Insurance:HUMANA VANDYNEDOB: [place] [address], MEDICARE PPOPolicy [id number] [place] [address]Nrj: Number: Repository [id number] (HP) Date:3689-54-45AJ [address] [place] [address]CI: 04/07/2018 Secondary NOT GIVENUNK Eddie Insurance:SELF PAY [facility] Number: Effective Repository Date:2018-04-07 04/07/2018 YENNI J Primary YENNI J Cosby [id number] TR Insurance:HUMANA VANDYNEDOB: [place] [address], MEDICARE PPOPolicy [id number] Health Care Center [address]Ume: Number: Repository [id number] (HP) Date:0207-27-94CE [address] [address]GG: 04/07/2018 Secondary NOT GIVENUNK Eddie Insurance:SELF PAY [facility] Number: Effective Repository Date:2018-04-07 04/07/2018 YENNI J Primary YENNI J Eddie [id number] TR Insurance:HUMANA VANDYNEDOB: [place] [address], MEDICARE PPOPolicy [id number] Health Care Center [address]Ino: Number: Repository [id number] (HP) Date:7929-17-33EC[address] [address]AM: 04/07/2018 Secondary NOT GIVENUNK Cosby Insurance:SELF PAY [facility] Number: Effective Repository Date:2018-04-07 04/05/2018 YENNI J Primary YENNI J Eddie [id number] TR Insurance:HUMANA VANDYNEDOB: [place] [address], MEDICARE PPOPolicy [id number] Health Care Center [address]Xiz: Number: Repository [id number] (HP) Date:7914-61-33AW [address] [address]WA: 04/05/2018 Secondary NOT GIVENUNK Eddie Insurance:SELF PAY [facility] Number: Effective Repository Date:2018-04-05 04/03/2018 ANGELINA GIMENEZ Primary ANGELINA LON Douglas JrDOB: Insurance:HUMANAPolic JrDOB: [facility] [id number] y Number: Effective [id number] System [facility] Date:2018-04-[address] [facility] [address] [facility] [id number] [id number]: Name:CD:[id number] [facility] [id number]: [address] [place] [address] (HP) [id number]: (130) (HP) [phone] (WP) 04/03/2018 ANGELINA Primary [facility] VANDYNEDOB: Insurance:[employer] [facility] VANDYNEDOB: [facility] [id number] ChoicePolicy Number: [id number] Repository [facility] [id number] [address], Date:Plan Name:[address] [id number]: [place] [id number]: (HP) (HP) 03/23/2018 [facility]:Humana [facility]RDOB[facility]: [id number] [facility] [id number] Repository Date:Plan Name:[address] [address]Nln: () 03/23/2018 Secondary [facility] Insurance:Ashly JRDOB: [facility] Number: [id number] [facility] [id number] [address] Repository ective Date: [facility]2581-63-01Pgdn [place] [address]Ahz: Name:[place] [address] [address] () [place], [place] [address]HR: 03/20/2018 [facility] Primary [facility] Insurance:MEDICAREPol JR.: Three Repository icy Number: [id number] [facility] [id number] [address], Date:2013-07-[address] [place] [address]Oyc: 3526-24-96DRM J15 [place] [address]Jwi: PART A CLAIMSPO BOX () [address]NAMXALHCJ, [place] () [address]TS: 03/20/2018 Secondary ANGELINA GIMENEZ [facility] Insurance:HUMANA JR.: Three Repository MANAGED [id number] MEDICAREPolicy [address] Number: [id number] [place] [address]Iwh: Date:3403-58-61MM [address] [place] [address] () [address]FZ: 03/17/2018 ANGELINATOM GIMENEZ Primary [facility] Insurance:MEDICAREPol .: Three Repository icy Number: [id number] [facility] [id number] [address] [place] [address], Date:2013-07-17 [facility] [place] [address]Dum: [id number] J15 [place] [address]Wxn: PART A CLAIMSPO BOX () [address]LBKOEEMWW, [place] () [address]RH: 03/17/2018 Secondary ANGELINA GIMENEZ [place] [facility] Insurance:HUMANA JR.: Three Repository MANAGED [id number] MEDICAREPolicy [address] Number: [id number] [place] [address]Iik: Date:9938-07-72AT [address] [place] [address] () [address]NW: 03/16/2018 Primary ANGELINATOM GIMENEZ [facility] Insurance:Humana [facility]RDOB[facility]: [id number] [facility] [id number] Repository Date:Plan Name:Health [address] [place] [address]Rpe: (HP) 03/16/2018 [facility]:Ashly JRDOB: Dee and KvngPolicy Number: [id number] [facility] [id number] Repository ective Date: [id number] [place] [address]Uni: Name:[place] [address] [address] () [place], [place] [address]FC: 03/16/2018 [facility] Primary [facility] [employer] JrDOB: Insurance:HUMANAPolic JrDOB: [facility] y Number: Effective [id number] System [facility] Date:2018-03-16 [facility] Repository [address] [place] [address] [id number] [id number]: Name::[id number] [facility] [id number]: [address] [place] [address] (HP) [id number]: (411) (HP) 000-0000 () 03/16/2018 [facility]INA [facility] Insurance:Humana Gold VANDYNEDOB: [facility] ChoicePolicy Number: [id number] Repository [facility] [id number] [address], Date:Plan Name:[address] [id number]: [place] [id number]: (HP) (HP) 03/06/2018 ANGELINA VANDYNE Primary [facility] JR.: Insurance:MEDICAREPol JR.: Three Repository icy Number: [id number] [facility] [id number] [address], Date:2013-07-[address] [place] [address]Ist: [id number] J15 [place] [address]Cip: PART A CLAIMSPO BOX () [id number] [place] [address] () [address]CB: 03/06/2018 [facility]:HUMANA .: Three Repository MANAGED [id number] MEDICAREPolicy [address] Number: 461[facility] [id number] [place] [address]Nhs: Date:6136-75-88AZ [address] [place] [address] () [address]GI: 03/06/2018 ANGELINA [facility]NE [facility] Insurance:MEDICAREPol JR.: Three Repository [id number] icy Number: [id number] [facility] [id number], Date:2013-07-[address] [place] [address]Rwl: [id number] J15 [place] [address]Wrm: PART A CLAIMSPO BOX () [id number] [place] [address] () [address]GA: 03/06/2018 Secondary [facility] Health Insurance:HUMANA .: Three Repository MANAGED [id number] MEDICAREPolicy [address] Number: 461L[address] [id number] [place] [address]Qat: Date:2651-29-87FG [address] [place] [address] () [address]HI: 02/08/2018 YENNI J Primary ANGELINATOM Pop VANDYNEDOB: Insurance:[facility]: [facility] [id number] y Number: [id number] [facility] [id number] Repository [address] [place] [address], Date:Plan Name:KATIANA PASCUAL [facility] [address]Vad: [address] () 02/08/2018 Secondary ANGELINATOM Pop Insurance:MEDICAREPol LONB: [facility] icy Number: [id number] [facility] [id number] [address] Repository Date:Plan Name:KATIA[place] PASCUAL [place] [id number] 02/06/2018 ANGELINATOM GIMENEZ Primary ANGELINA [facility] Insurance:MEDICAREPol JR.: Three Repository [id number] icy Number: [id number] [facility] [id number] [address] [place] [address], Date:2013-07-[address] [place] [address]Qvj: [id number] J15 [place] [address]Eid: PART A CLAIMSPO BOX () 60845QQHSCLMVM, [place] () [address]MW: 02/06/2018 Secondary ANGELINA [facility] Health Insurance:HUMANA JR.: Three Repository MANAGED [id number] MEDICAREPolicy [address] Number: 461L[facility], [id number] [place] [address]Xcp: Date:7135-41-41TL [address] [place] [address] () [address]UE: 02/01/2018 ANGELINATOM GIMENEZ Primary ANGELINA [facility].: Insurance:MEDICAREPol JR.: Three Repository [id number] icy Number: [id number] [facility] [id number] [address] [place] [address], Date:2013-07-17[facility] [place] [address]Fbq: [id number] J15 [place] [address]Mmd: PART A CLAIMSPO BOX () 6[address]NCYLWVIQA, [place] () [address]TR: 02/01/2018 Secondary ANGELINA VANDYNE [facility] Insurance:HUMANA : Three Repository MANAGED [id number] MEDICAREPolicy [address] Number: [address] [id number] [place] [address]Rba: Date:8215-68-65XC [address] [place] [address] () [address]VN: 01/28/2018 YENNI J Primary YENNI J Eddie [id number] TR Insurance:HUMANA LONDOB: Community [address], MEDICARE PPOPolicy [id number] [place] [address]Fvn: Number: Repository [id number] () Date:2461-52-44BT [address] [place] [address]BH: 01/28/2018 Secondary NOT GIVENUNK Cos[place] Insurance:SELF PAY [facility] Number: Effective Repository Date:2018-01-28 01/28/2018 YENNI J Primary YENNI J Eddie [id number] TR Insurance:HUMANA LONDOB: Community [address], MEDICARE PPOPolicy [id number] Hospital [place] [address]Xcy: Number: Repository [id number] () Date:3771-88-81TV [address] [place] [address]OO: 01/28/2018 Secondary NOT GIVENUNK [place] Insurance:SELF PAY [facility] Number: Effective Repository Date:2018-01-28 01/28/2018 YENNI J Primary YENNI J Eddie [id number] TR Insurance:HUMANA VANDYNEDOB: Community [address], MEDICARE PPOPolicy [id number] Hospital [place] [address]Ikq: Number: Repository [id number] () Date:5639-25-05HZ [address] [place] [address]PM: 01/28/2018 Secondary NOT GIVENUNK Eddie Insurance:SELF PAY [facility] Number: Effective Repository Date:2018-01-28 01/28/2018 YENNI J Primary YENNI J Eddie [id number] Insurance:HUMANA LONDOB: Community [address], MEDICARE PPOPolicy [id number] Hospital [place] [address]Nkg: Number: Repository [id number] (HP) Date:6059-48-17LO [address] [place] [address]QV: 01/28/2018 Secondary NOT GIVENUNK Eddei Insurance:SELF PAY [facility] Number: Effective Repository Date:2018-01-28 01/24/2018 ANGELINA MASHAYNE Primary ANGELINA LON [facility] .: Insurance:HUMANA JR.: Three Repository [id number] MANAGED [id number] MEDICAREPolicy [address] [place] [address], Number: [address] [place] [address]Izg: [id number] [place] [address]Pet: Date:0417-20-46XA BOX (HP) [address] [place] [address] (HP) [address]KM: 01/24/2018 Secondary ANGELINATOM GIMENEZ [facility] Insurance:HUMANA JR.: Three Repository MANAGED [id number] MEDICAREPolicy [address] Number: 461[place], [id number] [place] [address]Qly: Date:8644-50-17AM [address] [place] [address] (HP) [address]KP: 01/24/2018 ANGELINATOM GIMENEZ Primary ANGELINA LON [facility] .: Insurance:MEDICAREPol JR.: Three Repository [id number] icy Number: [id number] [facility] [id number] [address] [place] [address], Date:2013-07-17 - [address] [place] [address] 618[address]Xps: [id number] J15 [place] [address]Uso: PART A CLAIMSPO BOX (HP) 66596EKLPJIFCA, [place] () [address]SO: 01/24/2018 Secondary ANGELINA GIMENEZ [facility] Insurance:HUMANA JR.: Three Repository MANAGED [id number] MEDICAREPolicy [address] Number: [address] [id number] [place] [address]Rsl: Date:8171-33-59HT [address] [place] [address] (HP) [address]NN: 01/23/2018 Primary ANGELINATOM [facility]Z [facility]:Humana ABBYB: [facility] [place] Number: [id number] [facility] [id number] [address] Repository Date:Plan Name:Health [address] [address]Iwj: () 01/23/2018 ANGELINATOM GIMENEZ Primary [facility] Insurance:HUMANA JR.: Three Repository MANAGED [id number] MEDICAREPolicy [address], Number: [address] [place] [address]Kiz: [id number] [place] [address]Rhh: Date:4935-60-82VM BOX () [address] [place] [address] () [address]VM: 01/23/2018 Secondary AN[facility]INATOM [facility] Insurance:HUMANA JR.: Three Repository MANAGED [id number] MEDICAREPolicy [address] Number: [address] [id number] [place] [address]Pye: Date:9492-73-84AQ [address] [place] [address] (HP) [address]MQ: 01/14/2018 Primary [facility]:Humana JRDOB: [facility] Number: [id number] [facility] [id number] [address] Repository Date:Plan Name:Health [address] [place] [address]Dgb: (HP) 01/12/2018 ANGELINATOM GIMENEZ Primary ANGELINA LON Douglas JrDOB: Insurance:HUMANAPolic JrDOB: [facility] [id number] y Number: Effective [id number] [facility] [address] Date:2018-01-12 [facility] Repository [address] [place] [address] [id number] [address] [place] [address] [id number]: Name:CD:[id number] BOX [place] [id number]: [address] [place] [address] (HP) [phone]: (800) (HP) [phone] (WP) 01/12/2018 ANGELINATOM GIMENEZ Primary ANGELINA GIMENEZ [facility] JR.: Insurance:MEDICAREPol JR.: Three Repository icy Number: [id number] [facility] [id number] [facility] [address] [place] [address], Date:2013-07-[address] [place] [address]Uwh: [id number] [facility] [address]Ism: PART A CLAIMSPO BOX (HP) 69673PFBCFOXLF, [place] (HP) [address]NN: 01/12/2018 Secondary ANGELINATOM GIMENEZ [facility] Insurance:HUMANA JR.: Three Repository MANAGED [id number] MEDICAREPolicy [address] Number: 461[address]OUKENNETH [id number] [place] [address]Ldu: Date:3064-81-34RP [address] [place] [address] (HP) [address]OL: 01/10/2018 ANGELINA VANDAMY Primary ANGELINATOM GIMENEZ [facility].: Insurance:MEDICAREPol JR.: Three Repository [id number] icy Number: [id number] [facility] [id number] 7 [facility] [address] [place] [address], Date:2013-07-17 - 461[place]KEHS [place] [address]Fwa: 6956-08-27IZP J15 [place] [address]Izk: PART A CLAIMSPO BOX (HP) 67377MBOHQUFFE, [place] (HP) [address]QM: 01/10/2018 Secondary ANGELINA [facility] Health Insurance:HUMANA JR.: Three Repository MANAGED [id number] MEDICAREPolicy [address] Number: 46[facility], [id number] [place] [address]Ryc: Date:0369-25-73SG [address] [place] [address] (HP) [address]JB: 12/30/2017 ANGELINA VANDYNE Primary ANGELINA [facility].: Insurance:HUMANA JR.: Three Repository [id number] MANAGED [id number] MEDICAREPolicy [address] [place], Number: [place], [place] [address]Yxu: [id number] [place] [address]Rba: Date:0752-57-21SR BOX (HP) [address] [place] [address] (HP) [address]MY: 12/30/2017 Secondary ANGELINATOM GIMENEZ [facility] Insurance:HUMANA JR.: Three Repository MANAGED [id number] MEDICAREPolicy [address] Number: 461[address], [id number] [place] [address]Usb: Date:4241-69-96JD [address] [place] [address] (HP) [address]ON: 12/23/2017 ANGELINA VANDYNE Primary [facility] Insurance:MEDICAREPol JR.: Three Repository [id number] icy Number: [id number] [facility] [id number] 7 [facility] [address] [place] [address], Date:2013-07-[address] [place] [address]Qfv: [id number] J15 [place] [address]Itr: PART A CLAIMSPO BOX () 58374VDZBYSYAS, [place] () [address]AF: 12/23/2017 Secondary [facility] Insurance:HUMANA JR.: Three Repository MANAGED [id number] MEDICAREPolicy [address] Number: [address] [id number] [place] [address]Rws: Date:1021-77-35LS [address] [place] [address] () [address]NN: 12/01/2017 ANGELINA VANDYNE Primary [facility]INA [facility].: Insurance:MEDICAREPol JR.: Three Repository [id number] icy Number: [id number] [facility] [id number] [address], Date:2013-07-[address] [place] [address]Yio: [id number] J15 [place] [address]Wak: PART A CLAIMSPO BOX () [address]KUPKPOYDB, [place] () [address]CK: 12/01/2017 Secondary ANGELINATOM GIMENEZ [facility] Insurance:HUMANA .: Three Repository MANAGED [id number] MEDICAREPolicy [address] Number: [address] [id number] [place] [address]Bdz: Date:5070-03-36HT [address] [place] [address] () [address]PZ: 11/30/2017 ANGELINA GIMENEZ Primary ANGELINA LON Douglas JrDOB: Insurance:HUMANAPolic JrDOB: [facility] [id number] y Number: Effective [id number] System [facility] Date:2017-11-18 [facility] Repository [address] [place] [address] [id number] [place] [id number]: Name:CD:[id number] BOX [place] [id number]: [address] [place] [address] () [id number]: (714) (HP) [phone] ()
== END 2018-09-28 12:35 | disposition home or self-care (01) ==
LOC: CLSP 09:17
PROVIDERS: Family Provider Nurse Practitioner Family; PCP Nurse Practitioner Family; Referring Provider Surgery; Visit Provider Surgery
DX: T82.858A Stenosis of other vascular prosthetic devices, implants and grafts, initial encounter (principal); I87.1 Compression of vein; I13.2 Hypertensive heart and chronic kidney disease with heart failure and with stage 5 chronic kidney disease, or end stage renal disease; N18.5 Chronic kidney disease, stage 5; N17.9 Acute kidney failure, unspecified; I50.30 Unspecified diastolic (congestive) heart failure; I25.10 Atherosclerotic heart disease of native coronary artery without angina pectoris; I25.2 Old myocardial infarction; E78.5 Hyperlipidemia, unspecified; I73.9 Peripheral vascular disease, unspecified; J44.9 Chronic obstructive pulmonary disease, unspecified; D64.9 Anemia, unspecified; N40.0 Benign prostatic hyperplasia without lower urinary tract symptoms; M19.90 Unspecified osteoarthritis, unspecified site; Z95.1 Presence of aortocoronary bypass graft; Z79.02 Long term (current) use of antithrombotics/antiplatelets; Z79.82 Long term (current) use of aspirin; Z79.899 Other long term (current) drug therapy; F17.200 Nicotine dependence, unspecified, uncomplicated
CPT/HCPCS: 36902; 76937; 99152; 99153; Q9967; C1725; C1769; C1894

== ENCOUNTER 2018-10-19 13:35 | Outpatient (RCR) | payer MEDICARE, SELFPAY ==
[2018-09-28 13:46] VITALS: BMI 26.4
--- NOTE | 2018-10-19 14:41 | HP.PTEVAL_ITS ---
Patient's Visit Information ANGELINA FORREST Jr. is a 67 year old M referred to Physical Therapy by SEUN Poe with a diagnosis of . Date of Evaluation: 10/19/18 Physical Therapist: Pascale Zamora DPT - Visit Plan Plan: Scooter Evaluation sent to MD - Subjective Findings: Patient reports that in 1999 his legs started hurting and have progressed- he has vascular diseases and degenerative arthritis. The only blood supply he is getting is from the leaking of his veins- has tried to do stents but it is not working. Is unable to have bypass surgery due to his weak heart. Is on dyalysis 3-4x a week- started in May and they have upgraded it to chronic. Goes to [employer] and is on the machine for [address]- takes him to/from. [place] by the front door and he ambulates inside. Uses a cane/walker in the home but not in the community. But he does not go out very often. Uses a shopping scooter when he does go. He does not sleep well due to the pain in the LE. They ache all the time. Worst: 10/10. Best: 0/10 but very seldom. Eases: sitting and resting. Agg: walking or being up on the legs. Pain is from the knees down- blocked right about the ankle. Numbness and Tingling in the feet. 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 Has tried a 3 wheel scooter and does not feel safe on it and needs to have a 4 wheel. Fell today before he got to therapy- step was higher than he thought it would be. Can't do steps unless he has hand rail to pull him up. Has 2 stairs at home with a handrail- Single level once he is inside. Does have access in the back to run the scooter straight in. Plans to use the w/c inside and outside. His house is able to accomodate. He sponge bathes due to the port- is to afraid to shower due to falls. cleans but he does the cooking- a little bit at a time or helps- has a chair he can sit on in the kitchen. Has never had a scooter before. Starting to have skin breakdown on his buttocks- they have been using cream. - Objective Posture: FH, RS- patient slumps to the right in chair- weight shifts frequently in hard chair to decreased pressure on buttocks. Gait: slow parth- wide base of support. Ambualtes in clinic without AD but always looking to hold onto the wall, or anything that he passes for stability. Ambulated 25 feet before required to stop and rest his legs and catch his breathe from pain. Then was able to ambulate an additional 25 feet. When sitting after ambulation took 3 min for patient to resume ability to continue evaluation. Stairs: asc/desc 8 recip x 3 with significant UE A. HR/TR: able with pain in LE and required UE A. SLS: unable- balance is poor. Edema: pitting is mild today- reports taking 9 lbs of fluid off yesterday. ROM: WFL in all planes in UE and LE. Strength: Shoulder: 4/5, Elbow: 4+/5, Wrist: 4+/5, Tax Associate: equal and strong. Core: poor, Hip: 4-/5 throughout, Knee: 4/5, Ankle: 5/5 - Anticipated Interventions Thank you for the opportunity to evaluate your patient. For Medicare and Medicare HMO plans, please review the plan of care and approve it. It will need to be FAXED BACK to us at [phone] for Medicare purposes. For Medicare only, by signing this I certify the plan of care. Please let me know if there are questions or concerns regarding this plan of care. Physician Signature: Date:
--- NOTE | 2019-02-16 08:55 | HP.PT.NRP ---
HP - Discharge Summary (1) - Patient Information ANGELINA FORREST Jr. was seen in my office for initial evaluation on 10/19/18. The following Plan of Care was established for this patient: This patient was last seen in our office . Pertinent comments regarding their Physical therapy will appear below: Evaluation for scooter At this point I will be discontinuing this patient from physical therapy. I would be happy to see this patient again in the future if found appropriate by the physician. Thank you! KARON NathanT
== END 2018-10-19 19:00 | disposition home or self-care (01) ==
LOC: PT 13:35
PROVIDERS: Family Provider Nurse Practitioner Family; PCP Nurse Practitioner Family; Referring Provider Nurse Practitioner Family; Visit Provider Nurse Practitioner Family
DX: Z46.89 Encounter for fitting and adjustment of other specified devices (principal)
CPT/HCPCS: 97162

== ENCOUNTER → 2018-10-26 08:27 | Outpatient (CLI) | payer MEDICARE, SELFPAY ==
[2018-09-28 13:46] VITALS: BMI 26.4
[2018-10-26] VITALS (7 sets, daily range): BP systolic 131–149; BP diastolic 56–73; PULSE 76–86; RESP 16–18; TEMP 36.5–36.9; O2SAT 97–98; BMI 25.7
== END ==
PROVIDERS: Family Provider Nurse Practitioner Family; PCP Nurse Practitioner Family; Referring Provider Internal Medicine Nephrology; Visit Provider Internal Medicine Nephrology
DX: D64.9 Anemia, unspecified (principal)
CPT/HCPCS: 36415; 36430; 86850; 86900; 86920; 86922; J7040; P9016; A4216

== ENCOUNTER 2018-11-13 10:22 | Inpatient (IN) | payer MEDICARE, SELFPAY ==
[2018-10-26 08:34] VITALS: BMI 25.7
[2018-11-13] VITALS (22 sets, daily range): BP systolic 136–161; BP diastolic 52–81; PULSE 78–96; RESP 12–24; TEMP 36.6–38.2; O2SAT 95–100; BMI 25.7; BMI 27.0; BMI 27.1
--- NOTE | 2018-11-13 10:31 | EKG12_ITS ---
Test Reason : SOB Blood Pressure : / mmHG Vent. Rate : 089 BPM Atrial Rate : 089 BPM P-R Int : 240 ms QRS Dur : 094 ms QT Int : 354 ms P-R-T Axes : 000 067 221 degrees QTc Int : 430 ms Sinus rhythm with 1st degree A-V block Nonspecific ST and T wave abnormality Abnormal ECG Confirmed by SANTANA MONTENEGRO, KEISHA ([id number]), subeditor SHIRA HURD ([id number]) on 11/16/2018 8:12:27 AM Referred By: ALLA/JAY JAY Confirmed By:KEISHA DILLON MD
--- NOTE | 2018-11-13 10:31 | RAD_ITS ---
STUDY: X-RAY CHEST REASON FOR EXAM: Male, 68 years old. Cough. Shortness of breath. TECHNIQUE: Single AP portable view of the chest. COMPARISON: September 11, 2018. FINDINGS: There is hyperinflation of the lungs consistent with chronic obstructive lung disease (COPD). Groundglass opacities in the lower lungs. Small pleural effusions. Sternal cerclage wires are present from a prior sternotomy. Normal mediastinum and justyn. Normal visualized pulmonary arteries. There is atherosclerotic calcification of the aortic arch. Normal visualized thoracic spine. Normal visualized ribs, clavicles, and shoulders. There is no demonstrated abnormality of the visualized soft tissue structures of the upper abdomen. RAD/Chest 1 View (Portable) IMPRESSION: COPD with lower lung edema or infiltrates. Small pleural effusions. Electronically Signed: Kamari Tucker MD at 11:22 EST , Service support ,
[2018-11-13 10:43] LABS: Absolute Lymphocyte Count 1.09 X10^3/ul (0.83-4.51); Absolute Neutrophil Count 19.5 X10^3/uL (2.0-7.7); Basophil# 0.02 X10^3/uL; Basophil% 0.1 % (0-1); Eosinophil# 0.06 X10^3/uL; Eosinophils% 0.3 % (0-5); Hematocrit 31.2 % (40-54); Hemoglobin 9.9 g/dl (13.0-16.5); Lymphocyte # 1.09 X10^3/ul (4.0); Lymphocyte % 5.1 % (19-41); Mean Corp Hgb Conc 31.7 g/gl (32-36); Mean Corpuscular Hgb 31.7 pg (27.0-32.0); Mean Platelet Vol. 10.3 fl (6.2-12.0); Monocyte# 0.63 X10^3/uL; Neutrophil # 19.48 X10^3/uL (2.7-7.7); Neutrophil % 91.2 % (47-70); Platelet Count 175 K/mm3 (150-450); RBC Distribution Width CV 15.9 % (11.6-14.6); RBC Distribution Width SD 57.8 fl (35.1-43.9); Red Blood Count 3.12 M/mm3 (4.6-6.2); White Blood Count 21.4 K/mm3 (4.4-11.0)
[2018-11-13 10:45] LABS: POSITIVE COUNT NO; POSITIVE DIFFERENTIAL NO; POSITIVE MORPHOLOGY NO
[2018-11-13 11:03] LABS: Anion Gap 18 (5-15); BUN 89 mg/dL (7-18); BUN/Creat Ratio 10.9 RATIO (10-20); Calcium,Total 8.8 mg/dL (8.5-10.1); Chloride 87 mmol/L (98-107); Creatinine, Serum 8.13 mg/dL (0.70-1.30); EST Glomerular Filtration Rate 7 mL/min (>60); Est Glom Filt Rate - Afr Amer 9 mL/min (>60); Estimated Creatinine Clearance 8.53 ml/min; Glucose 90 mg/dL (74-106); Potassium 5.9 mmol/L (3.5-5.1); Sodium Level 128 mmol/L (136-145)
--- NOTE | 2018-11-13 11:15 | CPS ---
Decreased FiO2 to 30 % at this time
--- NOTE | 2018-11-13 11:16 | CPS ---
Patient taken off BiPAP at this time. Placed on 2lpm Nasal Cannula. RN aware.
--- NOTE | 2018-11-13 11:40 | ED.RN ---
DR. GOLD MADE AWARE THAT WE WERE UNABLE TO OBTAIN SECOND BLOOD CULTURE.
--- NOTE | 2018-11-13 11:53 | ED.VISSUMM ---
- ER Visit Summary Date of Service: 11/13/18 Chief Complaint: Shortness of breath History of Present Illness: The patient is a 68 M presenting secondary to shortness of breath. Patient has an underlying history of end-stage renal disease. Patient reports that over the course of this morning he had significant shortness of breath. He reports that he has been having some increased fluid retention recently, they try to get more fluid off of him at dialysis on Tuesday but were somewhat unsuccessful. Patient denies chest pain associated with this. He does endorse that he has a fever that today have been treating a urinary tract infection for recently. He denies any nausea vomiting or diarrhea or any other factious signs. Review of systems otherwise negative. Physical Examination: Vital signs are within normal limits with the patient on BiPAP. Well-nourished male no acute distress on supportive ventilation. Moist mucous membranes. Neck was supple. Heart was regular rate and rhythm. Lung sounds are diminished, with no tachypnea. Right anterior chest port is clean dry and intact. Abdomen soft nontender. 2+ peripheral edema noted that symmetric. Skin normal color. Remainder of physical otherwise unremarkable. Test Results: EKG shows a first-degree AV block and a sinus rhythm of 89. Chest x-ray shows bilateral infiltrates consistent with congestive heart failure. CBC demonstrates leukocytosis in the 20s, chemistry shows the patient's chronic kidney disease with a creatinine of 8.1, sodium of 128, potassium of 5.9. Troponin indeterminate. Emergency Department Course and Treatment: Patient presented with respiratory difficulty. Patient's workup as noted above shows congestive heart failure with hypoxia. Patient likely has an element of fluid overload, but he also has leukocytosis and reports a fever so blood cultures were obtained. Patient really did not complain of respiratory type symptoms and did state that he was getting treated for a urinary tract infection. He does not really produce much urine, so the patient was empirically treated for UTI with Rocephin. I discussed with the patient's waste paper hammermill operator and arranged urgent dialysis, and the patient will be admitted under the hospitalist. Disposition: Admission Impression: 1. CHF exacerbation 2. End-stage renal disease 3. Leukocytosis with recent history of UTI 4. Hypoxic respiratory failure Critical care time 35 minutes This note was generated with [employer] software. It may contain incorrect words, spelling, and punctuation that were not noted in review of the chart prior to signing ED Disposition - Plan for ED Patient: Chief Complaint: Shortness of Breath Referrals: Tania Berger, HEAD GAUGE UNIT OPERATOR-C [Primary Care Provider] -
--- NOTE | 2018-11-13 11:57 | ED.DCSUM_ITS ---
- ER Visit Summary Date of Service: 11/13/18 Chief Complaint: Shortness of breath History of Present Illness: The patient is a 68 M presenting secondary to shortness of breath. Patient has an underlying history of end-stage renal disease. Patient reports that over the course of this morning he had signifi cant shortness of breath. He reports that he has been having some increased fluid retention recently, they try to get more fluid off of him at dialysis on Tuesday but were somewhat unsuccessful. Patient denies chest pain associated with this. He does endorse that he has a fever that today have been treating a urinary tract infection for recently. He denies any nausea vomiting or diarrhea or any other factious signs. Review of systems otherwise negative. Physical Examination: Vital signs are within normal limits with the patient on BiPAP. Well-nourished male no acute distress on supportive ventilation. Moist mucous membranes. Neck was supple. Heart was regular rate and rhythm. Lung sounds are diminished, with no tachypnea. Right anterior chest port is clean d ry and intact. Abdomen soft nontender. 2+ peripheral edema noted that symmetric. Skin normal color. Remainder of physical otherwise unremarkable. Test Results: EKG shows a first-degree AV block and a sinus rhythm of 89. Chest x-ray shows bilateral infiltrates consistent with congestive heart failure. CBC demonstrates leukocytosis in the 20s, chemistry shows the patient's chronic kidney disease with a creatinine of 8.1, sodium of 128, potassium of 5.9. Troponin indeterminate. Emergency Department Course and Treatment: Patient presented with respiratory difficulty. Patient's workup as noted above shows congestive heart failure with hypoxia. Patient likely has an element of fluid overload, but he also has leukocytosis and reports a fever so blood cultures were obtained. Patient really did not complain of respiratory type symptoms and did state that he was getting treated for a urinary tract infection. He does not really produce much urine, so the patient was empirically treated for UTI with Rocephin. I discussed with the patient's starch mangle tender and arranged urgent dialysis, and the patient will be admitted under the hospitalist. Disposition: Admission Impression: 1. CHF exacerbation 2. End-stage renal disease 3. Leukocytosis with recent history of UTI 4. Hypoxic respiratory failure Critical care time 35 minutes This note was generated with [employer] software. It may contain incorrect words, spelling, and punctuation that were not noted in review of the chart prior to signing ED Disposition - Plan for ED Patient: Chief Complaint: Shortness of Breath Referrals: Tania Berger, ARMEN-C [Primary Care Provider] -
[2018-11-13] MEDS: Ceftriaxone 1 GM/50 ML BAG IV (12:05)
--- NOTE | 2018-11-13 12:07 | HP.PCM_ITS ---
Problem List (1) Diastolic CHF Status: Acute Qualifiers: Heart failure chronicity: acute on chronic Qualified Code(s): I50.33 - Acute on chronic diastolic (congestive) heart failure (2) Acute respiratory failure with hypoxia Status: Acute (3) History of non-ST elevation myocardial infarction (NSTEMI) Status: Chronic (4) History of left heart catheterization Status: Chronic Comment: 10/13/[address] Barrientos @ [facility]:Per Dr. Jiménez @ [facility]: CABG recommended (5) History of right and left heart catheterization Status: Chronic Comment: Patent NICHOLAS to LAD, SVG to 1st OM and SVG to RCA. Elevated right heart pressures, significant Diastolic dysfunction per cath done @ [facility], Dr. Barrientos (6) Stented coronary artery Status: Chronic Comment: 2003, JASON to circumflex ; 10/13/2009 tsfer from [facility] to [facility] [place], total of 5 bare metal stents to RCA per Dr. Barrientos @ [facility]: 3.5 X 18 Cpo, followed distally by 3.0 X12 Cpo to distal RCA;3.5 X 15 Cpo, followed proximally by 4.0 X 18 Cpo to Mid RCA; 4.0 X 18 Cpo to Proximal RCA (7) S/P CABG x 3 Status: Chronic Comment: [facility] per Dr. Osito Hernandez: NICHOLAS to LAD, reverse SVG to OMbranch of CX, reverse SVG to PDA of RCA. PDA endarterectomy. (8) Status post peripheral artery angioplasty with insertion of stent Status: Chronic Comment: Right common iliac, [facility] (9) Atherosclerotic heart disease of [place] coronary artery without angina pectoris Status: Chronic Comment: 2003, JASON to circumflex ; 10/10/2009 tsfer from [facility] to [facility] [place], total of 5 bare metal stents to RCA; CABG X [address] [facility] 01/31/2011 (critical left main and restenosis of RCA stents) (10) HLD (hyperlipidemia) Status: Chronic Qualifiers: (11) HTN (hypertension) Status: Chronic Qualifiers: (12) PAD (peripheral artery disease) Status: Chronic (13) COPD (chronic obstructive pulmonary disease) Status: Chronic Qualifiers: (14) Tobacco dependence Status: Chronic (15) Anemia Status: Chronic (16) BPH (benign prostatic hyperplasia) Status: Chronic Qualifiers: History of Present Illness Date of Admission: 11/13/18 Chief Complaint: Shortness of breath The patient is a 68 year old M with multiple comorbidities including end-stage renal disease on hemodialysis on Mondays, Wednesdays and Fridays who presents with shortness of breath. Patient reports a 4-day history of progressive shortness of breath. His symptoms got significantly worse around 2 AM on the morning of his admission. Prior to that patient had experienced subjective fever as well as chills. He had been started on Bactrim for possible UTI. In the emergency department patient was found to be clinically hypoxic at rest placed on BiPAP. Chest x-ray obtained demonstrated features consistent with COPD with lower lung edema/infiltrate and small pleural effusion. 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 Patient subsequently admitted to a monitored bed for further management. Past Medical History Past Medical History (Chronic Problems): Chronic Problems (Last Reviewed 10/05/18 @ 10:13 by Ling Herrera) Chronic renal failure, stage 5 (Chronic) ESRD (end stage renal disease) (Chronic) History of non-ST elevation myocardial infarction (NSTEMI) (Chronic 01/21/11) History of left heart catheterization (Chronic 01/21/11) 10/13/[address] Barrientos @ [facility]:Per Dr. Jiménez @ [facility]: CABG recommended History of right and left heart catheterization (Chronic 05/24/18) Patent NICHOLAS to LAD, SVG to 1st OM and SVG to RCA. Elevated right heart pressures, significant Diastolic dysfunction per cath done @ [facility], Dr. Barrientos Stented coronary artery (Chronic) 2003, JASON to circumflex ; 10/13/2009 tsfer from [facility] to [facility] [place], total of 5 bare metal stents to RCA per Dr. Barrientos @ [facility]: 3.5 X 18 Cpo, followed distally by 3.0 X12 Cpo to distal RCA;3.5 X 15 Cpo, followed proximally by 4.0 X 18 Cpo to Mid RCA; 4.0 X 18 Cpo to Proximal RCA S/P CABG x 3 (Chronic 01/26/11) [facility] per Dr. Osito Hernandez: NICHOLAS to LAD, reverse SVG to OMbranch of CX, reverse SVG to PDA of RCA. PDA endarterectomy. Status post peripheral artery angioplasty with insertion of stent (Chronic ~2011) Right common iliac, [facility] Atherosclerotic heart disease of [place] coronary artery without angina pectoris (Chronic) 2004, JASON to circumflex ; 10/10/2009 tsfer from [facility] to [facility] [place], total of 5 bare metal stents to RCA; CABG X [address] [facility] 01/31/2011 (critical left main and restenosis of RCA stents) HLD (hyperlipidemia) (Chronic) HTN (hypertension) (Chronic) PAD (peripheral artery disease) (Chronic) COPD (chronic obstructive pulmonary disease) (Chronic) Tobacco dependence (Chronic) Anemia (Chronic) BPH (benign prostatic hyperplasia) (Chronic) Medical History: Medical History (Last Reviewed 10/05/18 @ 10:13 by Ling Herrera) History of non-ST elevation myocardial infarction (NSTEMI) (Chronic) Onset Date: 01/21/11 I25.2 Atherosclerotic heart disease of [place] coronary artery without angina pectoris (Chronic) I25.10 2003, JASON to circumflex ; 10/10/2009 tsfer from [facility] to [facility] [place], total of 5 bare metal stents to RCA; CABG X [address] [facility] 01/31/2011 (critical left main and restenosis of RCA stents) Acute renal failure superimposed on chronic kidney disease (Resolved) N17.9, N18.9 Diastolic CHF (Acute) I50.30 HLD (hyperlipidemia) (Chronic) E78.5 HTN (hypertension) (Chronic) I10 PAD (peripheral artery disease) (Chronic) I73.9 COPD (chronic obstructive pulmonary disease) (Chronic) J44.9 Tobacco dependence (Chronic) F17.200 CKD (chronic kidney disease) (Inactive) N18.9 Leukocytosis (Resolved) D72.829 Anemia (Chronic) D64.9 BPH (benign prostatic hyperplasia) (Chronic) N40.0 Allergies irbesartan [From Avapro] Allergy (Severe, Verified 10/26/18 08:38) Blisters zolpidem [From Ambien] Adverse Reaction (Severe, Verified 10/26/18 08:38) made me go crazy, memory loss Home Medications: Ambulatory Orders Medication Instructions Recorded Albuterol Sulfate 2.5 mg IH Q4H PRN 11/13/18 Alprazolam [Xanax] 0.5 mg PO TID PRN 11/13/18 Amlodipine [Norvasc] 10 mg PO QHS 11/13/18 Aspirin E.C. [Ecotrin] 81 mg PO DAILY@0800 11/13/18 Carvedilol [Coreg] 25 mg PO BID 11/13/18 Clopidogrel Bisulfate [Plavix] 75 mg PO DAILY 11/13/18 Ferric Citrate [Auryxia] 210 mg PO BID 11/13/18 Isosorbide Mononitrate [Imdur] 30 mg PO DAILY 11/13/18 Lactulose 30 gm PO QODAY 11/13/18 Prednisone 10 mg PO DAILY 11/13/18 Ropinirole HCl [Requip] 1 mg PO QHS 11/13/18 Rosuvastatin Calcium [Crestor] 40 mg PO QHS 11/13/18 Smz/Tmp Ds [Bactrim Ds] 1 tablet PO BID 11/13/18 Tamsulosin HCl [Flomax] 0.8 mg PO DAILY 11/13/18 hydrALAZINE [Apresoline] 25 mg PO BID 11/13/18 Surgical History: Surgical History (Last Reviewed 11/13/18 @ 12:55 by Manoj Christensen MD) History of left heart catheterization (Chronic) Onset Date: 01/21/11 Z98.890 10/13/[address] Barrientos @ [facility]:Per Dr. Jiménez @ [facility]: CABG recommended S/P dialysis catheter insertion (Resolved) Onset Date: 05/22/18 Z95.828, Z99.2 Right internal jugular access per Dr. Demian Lua History of right and left heart catheterization (Chronic) Onset Date: 05/24/18 Z98.890 Patent NICHOLAS to LAD, SVG to 1st OM and SVG to RCA. Elevated right heart pressures, significant Diastolic [facility] History of thoracentesis (Resolved) Onset Date: 05/22/18 Z98.890 1700 cc removed from right side Stented coronary artery (Chronic) Z95.5 2003, JASON to circumflex ; 10/13/2009 tsfer from [facility] to [facility] [place], total of 5 bare [facility]: 3.5 X 18 Cpo, followed distally by 3.0 X12 Cpo to distal RCA;3.5 X 15 Cpo, followed proximally by 4.0 X 18 Cpo to Mid RCA; 4.0 X 18 Cpo to Proximal RCA S/P CABG x 3 (Chronic) Onset Date: 01/26/11 Z95.1 [facility] per Dr. Osito Hernandez: NICHOLAS to LAD, reverse SVG to OMbranch of CX, reverse SVG to PDA of RCA. PDA endarterectomy. history of surgically created arteriovenous fistula s/p fistulogram Onset Date: ~09/28/18 Surgical History: coronary bypass surgery, tonsillectomy Smoking Status: Current every day smoker - *Family History Maternal Family History: Family History (Last Reviewed 11/13/18 @ 12:56 by Manoj Christensen MD) Father CAD (coronary artery disease) Hypertension Kidney disease CVA (cerebral vascular accident) Other Cancer History Items: Heart Disease Paternal Family History: Family History (Last Reviewed 11/13/18 @ 12:56 by Manoj Christensen MD) Father CAD (coronary artery disease) Hypertension Kidney disease CVA (cerebral vascular accident) Other Cancer History Items: Heart Disease Review of Systems Constitutional: Reports: Anorexia, Chills, Fever, Fatigue Respiratory: Reports: Cough, Shortness of Breath Gastrointestinal: Denies: Abdominal Pain, Hematemesis, Hematochezia, Nausea, Melena, Vomiting Genitourinary: Denies: Dysuria, Frequency, Hematuria, Urgency Skin: Denies: Rash Neurological: Denies: Focal weakness, Numbness, Tingling Psychiatric: Denies: Homicidal Ideations, Suicidal Ideations Hematologic/ Lymphatic: Denies: Easy Bruising, Easy Bleeding VTE Information - Inpt Only VTE Present on Admission: No VTE Mechan Device Prophylaxis: Knee High JOHN Hose VTE Pharm Prophylaxis ordered?: Yes Objective: GENERAL: Dyspneic at rest on BiPAP HEENT: Atraumatic; moist oral mucosa EYES; Anicteric, Normal Conjunctiva NECK; supple, normal thyroid, no distended JVD. RESPIRATORY: Diminished to auscultation bilaterally, CARDIOVASCULAR: Regular S1 S2, GI: soft, non-tender, normoactive bowel sounds, : No Renal angle tenderness; EXTREMITIES: No edema, no clubbing, no cyanosis. MUSCULOSKELETAL: No Joint Tenderness; NEURO: Awake; no lateralizing signs. SKIN: Areas of ecchymosis on upper extremities PSYCH; flat affect - Physical Exam Vital Signs Temp Pulse Resp BP Pulse Ox 98.3 F 82 16 145/54 H 100 11/13/18 11:40 11/13/18 12:05 11/13/18 12:05 11/13/18 12:05 11/13/18 12:05 Oxygen Flow Rate (L/min) 2 Oxygen Delivery Method Bi-pap Weight: 76.657 kg Body Mass Index (BMI) 25.7 Finger Stick Blood Glucose 200 Laboratory Tests Past 24 Hrs 11/13/18 11/13/18 11/13/18 10:32 10:32 10:32 WBC 21.4 H RBC 3.12 L Hgb 9.9 L Hct 31.2 L MCV 100.0 H MCH 31.7 MCHC 31.7 L RDW 15.9 H RDW Differential 57.8 H Plt Count 175 MPV 10.3 Immature Gran % (Auto) 0.300 Neut % (Auto) 91.2 H Lymph % (Auto) 5.1 L [place] % (Auto) 3.0 Eos % (Auto) 0.3 Baso % (Auto) 0.1 Absolute Neuts (auto) 19.5 H Absolute Lymphs (auto) 1.09 Total Counted Not Reportable Sodium 128 L Potassium 5.9 H Chloride 87 L Carbon Dioxide 23.0 Anion Gap 18 H BUN 89 H Creatinine 8.13 H* Estim Creat Clear Calc 8.53 Est GFR (MDRD) Af Amer 9 L Est GFR (MDRD) Non-Af 7 L BUN/Creatinine Ratio 10.9 Glucose 90 Lactic Acid Pending Calcium 8.8 Troponin I 0.046 H Assessment/Plan All Active Problems (Last Reviewed 10/05/18 @ 10:13 by Ling Herrera) DAI (acute kidney injury) (Acute) Hypertensive emergency (Acute) Problem with dialysis access (Resolved) S/P dialysis catheter insertion (Resolved 05/22/18) History of thoracentesis (Resolved 05/22/18) Acute renal failure superimposed on chronic kidney disease (Resolved) Acute respiratory failure with hypoxia (Acute) Diastolic CHF (Acute) Leukocytosis (Resolved) Patient is a 68-year-old gentleman with multiple comorbidities including end- stage renal disease on hemodialysis Wednesdays and Fridays presented with progressive shortness of breath chest x-ray demonstrated features consistent with edema/infiltrate and assessment of acute on chronic diastolic heart failure in addition to suspected HCAP admitted to a monitored bed for further management. 1. Acute hypoxic respiratory failure secondary to combination of CHF from fluid overload (patient is a dialysis patient) as well as suspected healthcare acquired pneumonia. Patient was placed on noninvasive ventilation BiPAP admitted to a monitored bed for subsequent management 2. Suspected healthcare acquired pneumonia with possible gram-negative organisms. Patient was started on ciprofloxacin Zosyn as well as vancomycin pharmacy to dose. Patient was also placed on supplemental oxygen titrated to keep pulse ox greater than 92. Also did order for acute respiratory panel to rule out viral etiology 3. Acute diastolic congestive heart failure: Echo on 04/08/2018 demonstrated features consistent with diastolic dysfunction with an EF of 55%; patient has been admitted to monitored bed managed with fluid restriction, strict input and output daily weights; consultation was placed to nephrology to manage patient f luid status through dialysis 4. End-stage renal disease on hemodialysis on Wednesdays and Fridays; auscultation placed to Dr. Alaniz patient's diesel electrician for dialysis orders 5. CAD with previous CABG with subsequent stent placement patient is on Plavix as well as statin therapy 6. Hypertension-blood pressure controlled, home medications continued with dose adjustment as needed 7. Dyslipidemia-patient is on statin therapy, continued at home dose 8. COPD; nebs prn 9. Pulmonary hypertension with RSVP of 42 mmHg 10. BPH, status post chronic Charles catheter 11. Depression with anxiety patient is on SSRI as well as Xanax as needed 12. DVT prophylaxis SC Heparin Advance planning; did discuss with the patient and and his regarding his advanced directives as well as CODE STATUS. Did explain the various modalities involved ( FULL CODE, DNR CCA, DNR CCA with no intubation, and DNR CC ) patient elected ti remain FULL CODE. Order was placed. Time spent on discussion 18 minutes. Clinical Impression(s) from Imaging Studies Chest X-Ray 11/13/18 10:31 IMPRESSION: COPD with lower lung edema or infiltrates. Small pleural effusions. Electronically Signed: Kamari Tucker MD at 11:22 EST , Service support , Active Medications Acetaminophen (Tylenol) 650 mg PO Q6H PRN PRN PRN Reason: Mild Pain (scale 0-3)/T>100.7 Al Hydroxide/Mg Hydroxide (Mylanta Ii) 30 ml PO Q6H PRN PRN PRN Reason: Gastric Burning Albuterol Sulfate (Ventolin Aerosols) 2.5 mg INHALATION Q4H PRN PRN Reason: SOB/WHEEZE Alprazolam (Xanax) 0.5 mg PO TID PRN PRN Reason: ANXIETY Amlodipine Besylate (Norvasc) 10 mg PO QHS [facility] Aspirin (Ecotrin) 81 mg PO DAILY@0800 [facility] Carvedilol (Coreg) 25 mg PO BID [facility] Clopidogrel Bisulfate (Plavix) 75 mg PO DAILY [facility] Docusate Sodium (Colace) 200 mg PO BID PRN PRN PRN Reason: Constipation Guaifenesin (Mucinex) 1,200 mg PO BID [facility] Heparin Sodium (Porcine) (Heparin Na) 5,000 unit SC Q8 [facility] Hydralazine HCl (Apresoline) 25 mg PO BID [facility] Piperacillin Sod/Tazobactam Sod (Zosyn) 3.375 gm in 50 mls @ 12.5 mls/hr IV Q8 [facility] Ciprofloxacin (Cipro) 400 mg in 200 mls @ 200 mls/hr IV Q8 [facility] Vancomycin IV Pharmacy to Dose (1 ea/ Sodium Chloride) 500 mls @ 250 mls/hr IV X1 PRN; Protocol PRN Reason: Rx to Dose Isosorbide Mononitrate (Imdur) 30 mg PO DAILY [facility] Magnesium Hydroxide (Milk Of Magnesia) 30 ml PO DAILY PRN PRN Reason: Constipation Non-Formulary Medication (Ferric Citrate [Auryxia]) 210 mg PO BID [facility] Non-Formulary Medication (Lactulose [Lactulose]) 30 gm PO QODAY [facility] Non-Formulary Medication (Rosuvastatin Calcium [Crestor]) 40 mg PO QHS [facility] Oxycodone HCl (Oxyir) 5 mg PO Q4H PRN PRN PRN Reason: Moderate Pain (pain scale 4-5) Prednisone () 10 mg PO DAILY [facility] Ropinirole HCl (Requip) 1 mg PO QHS [facility] Tamsulosin HCl (Flomax) 0.8 mg PO DAILY [facility] Code Visit Inpatient E&M: 22114 Init Hosp L3 Procedures: 37006 Advncd Care Plan 30 Min
[2018-11-13 12:08] LABS: Lactic Acid 1.1 mmol/L (0.4-2.0)
[2018-11-13] MEDS: Albuterol 2.5 MG/3 ML VIAL.NEB. INHALATION (13:15)
[2018-11-13 13:22] LABS: Magnesium 3.1 mg/dL (1.6-2.6); Thyroid Stim Hormone (TSH) 0.41 uIU/mL (0.358-3.74)
[2018-11-13] MEDS: 0.9% Saline Lock 10 ML Syringe IV (15:00)
[2018-11-13] MEDS: Ciprofloxacin 400 MG/200 ML BAG 200 MG IV (15:28)
--- NOTE | 2018-11-13 16:22 | PCM.RX.CS ---
Consult Pharmacy has been consulted to manage selected antiobiotic: Vancomycin Type of Consult: New start Suspected Infection: Pneumonia Labs: Sodium 128 mmol/L (136-145) L 11/13/18 10:32 Potassium 5.9 mmol/L (3.5-5.1) H 11/13/18 10:32 Chloride 87 mmol/L (98-107) L 11/13/18 10:32 Carbon Dioxide 23.0 mmol/L (21.0-32.0) 11/13/18 10:32 Anion Gap 18 (5-15) H 11/13/18 10:32 BUN 89 mg/dL (7-18) H 11/13/18 10:32 Creatinine 8.13 mg/dL (0.70-1.30) H* 11/13/18 10:32 Est GFR (MDRD) Af Amer 9 mL/min (>60) L 11/13/18 10:32 Est GFR (MDRD) Non-Af 7 mL/min (>60) L 11/13/18 10:32 BUN/Creatinine Ratio 10.9 RATIO (10-20) 11/13/18 10:32 Glucose 90 mg/dL (74-106) 11/13/18 10:32 Microbiology: Microbiology 11/13/18 13:08 Mucosa - Nose Influenza Types A,B Direct FA (ESA) - Final Weight used for dosin kg Estimated Creatinine Clearance: ~9 ml/min Goal Trough: 15-20 mcg/mL Pharmacy Plan for Drug Dosing: Patient to get 1250mg iv x 1 after dialysis today 11.13.18. Patient is then to get 500mg iv x 1 after next dialysis on Tue11.15.18. Random vancomycin level has been ordered for .11.04 @0600 with goal range of 15-20 mcg/ml. Pharmacy Service will continue to monitor and adjust dosing as required. Follow-Up Labs: Trough Other - Vanco random level 2.1 @0600
[2018-11-13] MEDS: Piperacil/Tazobactam 3.375 GM/50 ML ML IV (17:17)
[2018-11-13] MEDS: Calcium Acetate 667 MG Capsule 1334 MG PO (20:27)
--- NOTE | 2018-11-13 20:27 | DIALYSIS ---
Pt tolerated 3.75 hr HD tx well. Net UF -3800ml. See flow record for tx data.
[2018-11-13] MEDS: Pramipexole Di-HCl 0.5 MG Tablet PO (22:05)
[2018-11-13] MEDS: Atorvastatin Calcium 80 MG Tablet PO (22:05)
[2018-11-13] MEDS: hydrALAZINE 25 MG Tablet PO (22:05)
[2018-11-13] MEDS: Carvedilol 25 MG Tablet PO (22:05)
[2018-11-13] MEDS: guaiFENesin 1,200 MG Tablet 1200 MG PO (22:05)
[2018-11-13] MEDS: Acetaminophen 325 MG Tablet 650 MG PO (22:06)
[2018-11-13] MEDS: amLODIPine 10 MG Tablet PO (22:06)
[2018-11-14] VITALS (21 sets, daily range): BP systolic 111–135; BP diastolic 39–56; PULSE 59–700; RESP 12–22; TEMP 36.6–37.8; O2SAT 92–98
[2018-11-14] MEDS: Piperacil/Tazobactam 3.375 GM/50 ML ML IV ×3 (00:28→22:22)
[2018-11-14 06:17] LABS: Hematocrit 28.3 % (40-54); Hemoglobin 8.8 g/dl (13.0-16.5); Mean Corp Hgb Conc 31.1 g/gl (32-36); Mean Corpuscular Hgb 32.2 pg (27.0-32.0); Mean Corpuscular Volume 103.7 fL (80-94); Mean Platelet Vol. 10.8 fl (6.2-12.0); Platelet Count 183 K/mm3 (150-450); RBC Distribution Width CV 15.5 % (11.6-14.6); RBC Distribution Width SD 57.2 fl (35.1-43.9); Red Blood Count 2.73 M/mm3 (4.6-6.2); White Blood Count 10.5 K/mm3 (4.4-11.0)
[2018-11-14 06:18] LABS: Scan Indicated on CBC? Y/N NO
[2018-11-14 06:36] LABS: Anion Gap 12 (5-15); BUN 43 mg/dL (7-18); BUN/Creat Ratio 8.8 RATIO (10-20); Calcium,Total 8.8 mg/dL (8.5-10.1); Chloride 94 mmol/L (98-107); Creatinine, Serum 4.87 mg/dL (0.70-1.30); EST Glomerular Filtration Rate 13 mL/min (>60); Est Glom Filt Rate - Afr Amer 15 mL/min (>60); Estimated Creatinine Clearance 14.24 ml/min; Glucose 89 mg/dL (74-106); Potassium 4.7 mmol/L (3.5-5.1); Sodium Level 132 mmol/L (136-145)
[2018-11-14] MEDS: Albuterol 2.5 MG/3 ML VIAL.NEB. INHALATION ×2 (07:20→21:35)
[2018-11-14] MEDS: Calcium Acetate 667 MG Capsule 1334 MG PO ×3 (08:29→18:22)
[2018-11-14] MEDS: Tamsulosin HCl 0.4 MG Capsule 0.8 MG PO (08:29)
[2018-11-14] MEDS: predniSONE 10 MG Tablet PO (08:30)
[2018-11-14] MEDS: Aspirin E.C. 81 MG Tablet PO (08:30)
--- NOTE | 2018-11-14 09:30 | CASEMGMT ---
RN JOHANNA INSTRUCTOR [employer] CM to room to meet with patient for initial transition planning/care coordination assessment. RN JOHANNA introduced self and role at [facility]. Pt voices understanding and consents to assessment at this time. Pt resting in bed in no distress at this time. Pt is A/O at this time and answers all questions appropriately. Care providers, pharmacy, and demographics verified at this time. PCP: Tania Berger Specialists: Ingrid: abstracter, Delmy:urologist, Floyd: sap basis architect. has been planning on making an appt with Dr Caicedo, motor mechanic, but has not made one yet. Informed pt he would need to talk to his PCP about referral to Dr Caicedo, as he is not consulted here @ the hospital. Preferred Pharmacy: [facility] Insurance: [employer] [facility] Prescription Benefit: Yes Living Will/HPOA: does not have LW or HCPOA . Interested in more information. Given AD info packet. Pt states he will talk to his when she comes in. Instructed to have staff contact SW if he would like to complete paperwork or if he has any questions. Also provided pt with [employer] card and informed he can make an appt as an out-pt if he chooses to complete at a later time. Pt voices understanding. LNOK: and 4 children. States 3 live close and one is in [place]. Living Arrangements: Lives @ home with his in a 1-story home. Has 2 steps w/rails to enter. Transportation: Pt states drives self and states no transportation concerns at this time. also drives. DME: has the following DME: Cane, walker, CPAP, nebulizer, and O2 @ 2 L/M @ HS. has concentrator and nebulizer. Call placed to [employer] who confirms they are pt's oxygen supplier. Pt states no need for further DME at this time. HHC/SNF: States has never been to a SNF or used HHC. Declines HHC or CCN referral at this time. PT/OT evals pending. Pt goes to [facility]. Chair time 1230. States he had an appt today for [facility] to start Peritoneal Dialysis in January or February. [facility] is aware he is hospitalized at this time. Pt wishes to return home and states has no concerns with going home at time of discharge. Pt states he smokes 1/2 PPD. States he has tried to quit smoking in the past. Declines smoking cessation information at this time. States he drinks 2 beers a day. CM to follow for any needs and any further discharge planning that may arise. Pt voices no further concerns/needs at this time. Advised pt to ask for CM if any further questions/concerns/needs arise. Voices understanding. PLAN: Home with spousal support and discharge plans in place. Junior VALADEZ RN CM
--- NOTE | 2018-11-14 10:29 | PN_ITS ---
Subjective: Patient is a 68-year-old gentleman with multiple comorbidities including end- stage renal disease on hemodialysis Wednesdays and Fridays presented with progressive shortness of breath chest x-ray demonstrated features consistent with edema/infiltrate and assessment of acute on chronic diastolic heart failure in addition to suspected HCAP admitted to a monitored bed for further management. Patient seen had emergency dialysis the day prior. Breathing still remains significantly better at rest patient remains on BiPAP Objective: GENERAL: Dyspneic at rest on BiPAP HEENT: Atraumatic; moist oral mucosa EYES; Anicteric, Normal Conjunctiva NECK; supple, normal thyroid, distended JVD. RESPIRATORY: Diminished to auscultation bilaterally, CARDIOVASCULAR: Regular S1 S2, GI: soft, non-tender, normoactive bowel sounds, : No Renal angle tenderness; EXTREMITIES: Trace edema, no clubbing, no cyanosis. MUSCULOSKELETAL: No Joint Tenderness; NEURO: Awake; no lateralizing signs. SKIN: Areas of ecchymosis on upper extremities PSYCH; flat affect Vitals/I&O's: Vital Signs Temp Pulse Resp BP Pulse Ox 98.6 F 61 21 H 114/49 L 93 11/14/18 08:06 11/14/18 08:06 11/14/18 08:06 11/14/18 08:06 11/14/18 08:09 Oxygen Flow Rate (L/min) 2 Oxygen Delivery Method Nasal Cannula Weight: 79.3 kg Body Mass Index (BMI) 27.0 Finger Stick Blood Glucose 200 Intake and Output for Last 24 Hours 11/12/18 11/13/18 11/14/18 23:59 23:59 23:59 Intake Total 1200 / 1200 275.4 / 275.4 Output Total 3800 / 3800 0 / 0 Balance -2600 / -2600 275.4 / 275.4 Microbiology Past 72 Hours 11/13/18 13:08 Mucosa - Nose Influenza Types A,B Direct FA (ESA) - Final Laboratory Results 11/13/18 10:32: WBC 21.4 H, RBC 3.12 L, Hgb 9.9 L, Hct 31.2 L, MCV 100.0 H, MCH 31.7, MCHC 31.7 L, RDW 15.9 H, RDW Differential 57.8 H, Plt Count 175, MPV 10.3, Immature Gran % (Auto) 0.300, Neut % (Auto) 91.2 H, Lymph % (Auto) 5.1 L, [place] % (Auto) 3.0, Eos % (Auto) 0.3, Baso % (Auto) 0.1, Absolute Neuts (auto) 19.5 H, Absolute Lymphs (auto) 1.09, Total Counted Not Reportable 11/13/18 10:32: Sodium 128 L, Potassium 5.9 H, Chloride 87 L, Carbon Dioxide 23.0, Anion Gap 18 H, BUN 89 H, Creatinine 8.13 H*, Estim Creat Clear Calc 8.53, Est GFR (MDRD) Af Amer 9 L, Est GFR (MDRD) Non-Af 7 L, BUN/Creatinine Ratio 10.9, Glucose 90, Calcium 8.8, Troponin I 0.046 H 11/13/18 10:32: Lactic Acid 1.1 11/13/18 10:32: Magnesium 3.1 H, TSH 0.41 11/13/18 14:00: Troponin I 0.056 H 11/13/18 15:53: Troponin I 0.052 H 11/14/18 05:30: WBC 10.5, RBC 2.73 L, Hgb 8.8 L, Hct 28.3 L, MCV 103.7 H, MCH 32.2 H, MCHC 31.1 L, RDW 15.5 H, RDW Differential 57.2 H, Plt Count 183, MPV 10.8 11/14/18 05:30: Sodium 132 L, Potassium 4.7, Chloride 94 L, Carbon Dioxide 26.0, Anion Gap 12, BUN 43 H, Creatinine 4.87 H, Estim Creat Clear Calc 14.24, Est GFR (MDRD) Af Amer 15 L, Est GFR (MDRD) Non-Af 13 L, BUN/Creatinine Ratio 8.8 L, Glucose 89, Calcium 8.8 Current Medications Acetaminophen (Tylenol) 650 mg PO Q6H PRN PRN PRN Reason: Mild Pain (scale 0-3)/T>100.7 Last Admin: 11/13/18 22:06 Dose: 650 mg Al Hydroxide/Mg Hydroxide (Mylanta Ii) 30 ml PO Q6H PRN PRN PRN Reason: Gastric Burning Albuterol Sulfate (Ventolin Aerosols) 2.5 mg INHALATION Q4H PRN PRN Reason: SOB/WHEEZE Last Admin: 11/14/18 07:20 Dose: 2.5 mg Alprazolam (Xanax) 0.5 mg PO TID PRN PRN Reason: ANXIETY Amlodipine Besylate (Norvasc) 10 mg PO QHS [facility] Last Admin: 11/13/18 22:06 Dose: 10 mg Aspirin (Ecotrin) 81 mg PO DAILY@0800 [facility] Last Admin: 11/14/18 08:30 Dose: 81 mg Atorvastatin Calcium (Lipitor) 80 mg PO QHS [facility] Last Admin: 11/13/18 22:05 Dose: 80 mg Calcium Acetate (Phoslo Gel Cap) 1,334 mg PO TIDCM [facility] Last Admin: 11/14/18 08:29 Dose: 1,334 mg Carvedilol (Coreg) 25 mg PO BID [facility] Last Admin: 11/13/18 22:05 Dose: 25 mg Clopidogrel Bisulfate (Plavix) 75 mg PO DAILY [facility] Docusate Sodium (Colace) 200 mg PO BID PRN PRN PRN Reason: Constipation Guaifenesin (Mucinex) 1,200 mg PO BID [facility] Last Admin: 11/13/18 22:05 Dose: 1,200 mg Heparin Sodium (Porcine) (Heparin Na) 5,000 unit SC Q8 [facility] Last Admin: 11/14/18 00:57 Dose: Not Given Hydralazine HCl (Apresoline) 25 mg PO BID [facility] Last Admin: 11/13/18 22:05 Dose: 25 mg Piperacillin Sod/Tazobactam Sod (Zosyn) 3.375 gm in 50 mls @ 12.5 mls/hr IV Q12 [facility] Last Admin: 11/14/18 00:28 Dose: 12.5 mls/hr Ciprofloxacin (Cipro) 400 mg in 200 mls @ 200 mls/hr IV Q24 [facility] Last Admin: 11/13/18 15:28 Dose: 200 mls/hr Vancomycin IV Pharmacy to Dose (1 ea/ Sodium Chloride) 500 mls @ 250 mls/hr IV PRN PRN; Protocol PRN Reason: Rx to Dose Vancomycin HCl () 500 mg in 100 mls @ 100 mls/hr IV X1 ONE Stop: 11/15/18 16:59 Isosorbide Mononitrate (Imdur) 30 mg PO DAILY [facility] Lactulose (Chronulac, Cephulac) 30 gm PO TuThSa@1000 [facility] Magnesium Hydroxide (Milk Of Magnesia) 30 ml PO DAILY PRN PRN Reason: Constipation Oxycodone HCl (Oxyir) 5 mg PO Q4H PRN PRN PRN Reason: Moderate Pain (pain scale 4-5) Pramipexole Dihydrochloride (Mirapex) 0.5 mg PO QHS [facility] Last Admin: 11/13/18 22:05 Dose: 0.5 mg Prednisone () 10 mg PO DAILYCM [facility] Last Admin: 11/14/18 08:30 Dose: 10 mg Tamsulosin HCl (Flomax) 0.8 mg PO DAILY@0830 [facility] Last Admin: 11/14/18 08:29 Dose: 0.8 mg Medical Necessity - Tobacco Use Smoking Status: Current every day smoker Assessment/Plan All Active Problems (Last Reviewed 10/05/18 @ 10:13 by Ling Herrera) DAI (acute kidney injury) (Acute) Hypertensive emergency (Acute) Problem with dialysis access (Resolved) S/P dialysis catheter insertion (Resolved 05/22/18) History of thoracentesis (Resolved 05/22/18) Acute renal failure superimposed on chronic kidney disease (Resolved) Acute respiratory failure with hypoxia (Acute) Diastolic CHF (Acute) Leukocytosis (Resolved) Patient is a 68-year-old gentleman with multiple comorbidities including end- stage renal disease on hemodialysis Wednesdays and Fridays presented with progressive shortness of breath chest x-ray demonstrated features consistent with edema/infiltrate and assessment of acute on chronic diastolic heart failure in addition to suspected HCAP admitted to a monitored bed for further management. 1. Acute hypoxic respiratory failure secondary to combination of CHF from fluid overload (patient is a dialysis patient) as well as suspected healthcare acquired pneumonia. Patient was placed on noninvasive ventilation BiPAP admitted to a monitored bed for subsequent management 2. Suspected healthcare acquired pneumonia with possible gram-negative organisms. Patient was started on ciprofloxacin Zosyn as well as vancomycin pharmacy to dose. Patient was also placed on supplemental oxygen titrated to keep pulse ox greater than 92. Also did order for acute respiratory panel to rule out viral etiology 3. Acute diastolic congestive heart failure: Echo on 04/08/2018 demonstrated features consistent with diastolic dysfunction with an EF of 55%; patient has been admitted to monitored bed managed with fluid restriction, strict input and output daily weights; consultation was placed to nephrology to manage patient fluid status through dialysis 4. Elevated troponin suspected to be secondary to demand ischemia from above patient denies chest pain however given patient past cardiac history of CAD with CABG and subsequent stent placement consultation was placed to cardiology 5. CAD with previous CABG with subsequent stent placement patient is on Plavix as well as statin therapy 6. End-stage renal disease on hemodialysis on Wednesdays and Fridays; auscultation placed to Dr. Alaniz patient's security intelligence analyst for dialysis orders 7. Hypertension-blood pressure controlled, home medications continued with dose adjustment as needed 8. Dyslipidemia-patient is on statin therapy, continued at home dose 9. COPD; nebs prn 10. Pulmonary hypertension with RSVP of 42 mmHg 11. Depression with anxiety patient is on SSRI as well as Xanax as needed 12. BPH, status post chronic Charles catheter 13. DVT prophylaxis SC Heparin Code Visit Inpatient E&M: 72860 Subs Hosp L3
[2018-11-14] MEDS: guaiFENesin 1,200 MG Tablet 1200 MG PO ×2 (10:49→22:22)
[2018-11-14] MEDS: Clopidogrel Bisulfate 75 MG Tablet PO (10:49)
--- NOTE | 2018-11-14 11:56 | PCM.CONS.R ---
Problem List (1) ESRD (end stage renal disease) Status: Chronic Consultation - Renal 11/14/18 PCP/ Referring MD: Requesting physician: Dr Christensen Primary care physician: SEUN Poe Reason for Consultation:: ESRD - History of Present Illness History of Present Illness: The patient is a 68 year old M well known to us. ESRD on HD MWF schedule. Access if RIJ TDC. admitted with dyspnea. CXR consistent with fluid overload vs pneumonia. had WBC of around 20 k on admission. being treated for HCAP. had dialysis yesterday. felt significantly better after. today still having some dyspnea requiring Bipap at rest. no fever. weight is close to estimated dry weight. no cough. no fevers - Allergies Allergies: Allergies irbesartan [From Avapro] Allergy (Severe, Verified 10/26/18 08:38) Blisters zolpidem [From Ambien] Adverse Reaction (Severe, Verified 10/26/18 08:38) made me go crazy, memory loss - Current Medications Current Medications: Current Medications Acetaminophen (Tylenol) 650 mg PO Q6H PRN PRN PRN Reason: Mild Pain (scale 0-3)/T>100.7 Last Admin: 11/13/18 22:06 Dose: 650 mg Al Hydroxide/Mg Hydroxide (Mylanta Ii) 30 ml PO Q6H PRN PRN PRN Reason: Gastric Burning Albuterol Sulfate (Ventolin Aerosols) 2.5 mg INHALATION Q4H PRN PRN Reason: SOB/WHEEZE Last Admin: 11/14/18 07:20 Dose: 2.5 mg Alprazolam (Xanax) 0.5 mg PO TID PRN PRN Reason: ANXIETY Amlodipine Besylate (Norvasc) 10 mg PO QHS [facility] Last Admin: 11/13/18 22:06 Dose: 10 mg Aspirin (Ecotrin) 81 mg PO DAILY@0800 [facility] Last Admin: 11/14/18 08:30 Dose: 81 mg Atorvastatin Calcium (Lipitor) 80 mg PO QHS [facility] Last Admin: 11/13/18 22:05 Dose: 80 mg Calcium Acetate (Phoslo Gel Cap) 1,334 mg PO TIDCM [facility] Last Admin: 11/14/18 08:29 Dose: 1,334 mg Carvedilol (Coreg) 25 mg PO BID [facility] Last Admin: 11/14/18 10:50 Dose: Not Given Clopidogrel Bisulfate (Plavix) 75 mg PO DAILY [facility] Last Admin: 11/14/18 10:49 Dose: 75 mg Docusate Sodium (Colace) 200 mg PO BID PRN PRN PRN Reason: Constipation Guaifenesin (Mucinex) 1,200 mg PO BID [facility] Last Admin: 11/14/18 10:49 Dose: 1,200 mg Heparin Sodium (Porcine) (Heparin Na) 5,000 unit SC Q8 [facility] Last Admin: 11/14/18 00:57 Dose: Not Given Hydralazine HCl (Apresoline) 25 mg PO BID [facility] Last Admin: 11/14/18 10:50 Dose: Not Given Piperacillin Sod/Tazobactam Sod (Zosyn) 3.375 gm in 50 mls @ 12.5 mls/hr IV Q12 [facility] Last Admin: 11/14/18 10:49 Dose: 12.5 mls/hr Ciprofloxacin (Cipro) 400 mg in 200 mls @ 200 mls/hr IV Q24 [facility] Last Admin: 11/13/18 15:28 Dose: 200 mls/hr Vancomycin IV Pharmacy to Dose (1 ea/ Sodium Chloride) 500 mls @ 250 mls/hr IV PRN PRN; Protocol PRN Reason: Rx to Dose Vancomycin HCl () 500 mg in 100 mls @ 100 mls/hr IV X1 ONE Stop: 11/15/18 16:59 Isosorbide Mononitrate (Imdur) 30 mg PO DAILY [facility] Last Admin: 11/14/18 10:51 Dose: Not Given Lactulose (Chronulac, Cephulac) 30 gm PO TuThSa@1000 [facility] Magnesium Hydroxide (Milk Of Magnesia) 30 ml PO DAILY PRN PRN Reason: Constipation Oxycodone HCl (Oxyir) 5 mg PO Q4H PRN PRN PRN Reason: Moderate Pain (pain scale 4-5) Pramipexole Dihydrochloride (Mirapex) 0.5 mg PO QHS [facility] Last Admin: 11/13/18 22:05 Dose: 0.5 mg Prednisone () 10 mg PO DAILYCM [facility] Last Admin: 11/14/18 08:30 Dose: 10 mg Tamsulosin HCl (Flomax) 0.8 mg PO DAILY@0830 [facility] Last Admin: 11/14/18 08:29 Dose: 0.8 mg - Past Medical History Past Medical History (Chronic Problems): Chronic Problems (Last Reviewed 10/05/18 @ 10:13 by Ling Herrera) Chronic renal failure, stage 5 (Chronic) ESRD (end stage renal disease) (Chronic) History of non-ST elevation myocardial infarction (NSTEMI) (Chronic 01/21/11) History of left heart catheterization (Chronic 01/21/11) 10/13/[address] Barrientos @ [facility]:Per Dr. Jiménez @ [facility]: CABG recommended History of right and left heart catheterization (Chronic 05/24/18) Patent NICHOLAS to LAD, SVG to 1st OM and SVG to RCA. Elevated right heart pressures, significant Diastolic dysfunction per cath done @ [facility], Dr. Barrientos Stented coronary artery (Chronic) 2003, JASON to circumflex ; 10/13/2009 tsfer from [facility] to [facility], total of 5 bare metal stents to RCA per Dr. Barrientos @ [facility]: 3.5 X 18 Community Services Manager, followed distally by 3.0 X12 Community Services Manager to distal RCA;3.5 X 15 Community Services Manager, followed proximally by 4.0 X 18 Community Services Manager to Mid RCA; 4.0 X 18 Community Services Manager to Proximal RCA S/P CABG x 3 (Chronic 01/26/11) [facility] per Dr. Osito Hernandez: NICHOLAS to LAD, reverse SVG to OMbranch of CX, reverse SVG to PDA of RCA. PDA endarterectomy. Status post peripheral artery angioplasty with insertion of stent (Chronic ~2010) Right common iliac, [facility] Atherosclerotic heart disease of [place] coronary artery without angina pectoris (Chronic) 2003, JASON to circumflex ; 10/10/2009 tsfer from [facility] to [facility], total of 5 bare metal stents to RCA; CABG X 3 vessels @ [facility] 01/31/2011 (critical left main and restenosis of RCA stents) HLD (hyperlipidemia) (Chronic) HTN (hypertension) (Chronic) PAD (peripheral artery disease) (Chronic) COPD (chronic obstructive pulmonary disease) (Chronic) Tobacco dependence (Chronic) Anemia (Chronic) BPH (benign prostatic hyperplasia) (Chronic) - Past Surgical History Surgical History: coronary bypass surgery, tonsillectomy - Social History Smoking Status: Current every day smoker - Family History Maternal Family History: Family History (Last Reviewed 11/13/18 @ 12:56 by Manoj Christensen MD) Father CAD (coronary artery disease) Hypertension Kidney disease CVA (cerebral vascular accident) Other Cancer History Items: Heart Disease Paternal Family History: Family History (Last Reviewed 11/13/18 @ 12:56 by Manoj Christensen MD) Father CAD (coronary artery disease) Hypertension Kidney disease CVA (cerebral vascular accident) Other Cancer History Items: Heart Disease Review of Systems Constitutional: Denies: Chills, Fever, Weight Change HEENT: Denies: Head Aches, Sinus Congestion, Sinus Drainage Cardiovascular: Denies: Chest Pain, Palpitations Respiratory: Reports: Shortness of Breath, Shortness of breath at rest. Denies: Cough, Sputum production Gastrointestinal: Denies: Abdominal Pain, Nausea, Vomiting Genitourinary: Denies: Dysuria Musculoskeletal: Denies: Joint Pain, Joint Tenderness Skin: Denies: Rash, Wounds Neurological: Denies: Numbness, Tingling, Focal weakness Psychiatric: Denies: Anxiety, Depression, Homicidal Ideations, Suicidal Ideations Hematologic/ Lymphatic: Denies: Easy Bruising, Easy Bleeding - Physical Exam General: Alert, Oriented x3, Cooperative HEENT: Atraumatic, PERRLA, EOMI, Normocephalic Neck: Supple, No JVD, Negative Carotid Bruits Lungs: Clear to auscultation, Normal air movement Cardiovascular: Regular rate, No murmurs Abdomen: Bowel Sounds Present, Soft, Non Tender Extremities: No edema, Capillary Refill Less than 3 Seconds Skin: No rashes, No breakdown Musculoskeletal: No Tenderness to Palpation of Joints or Extremities Neurological: Cranial nerves II-XII grossly intact Psych/Mental Status: Normal Affect, Appropriate Vital Signs Temp Pulse Resp BP Pulse Ox 98.6 F 71 20 H 119/47 L 94 11/14/18 10:00 11/14/18 10:00 11/14/18 10:00 11/14/18 10:11/14/18 10:00 Oxygen Flow Rate (L/min) 2 Oxygen Delivery Method Bi-pap Weight: 79.3 kg Body Mass Index (BMI) 27.0 Finger Stick Blood Glucose 200 Intake and Output for Last 24 Hours 11/12/18 11/13/18 11/14/18 23:59 23:59 23:59 Intake Total 1200 / 1200 275.4 / 275.4 Output Total 3800 / 3800 0 / 0 Balance -2600 / -2600 275.4 / 275.4 Microbiology Past 72 Hours 11/13/18 13:08 Influenza Types A,B Direct FA (ESA) - Final Mucosa - Nose Laboratory Tests Past 24 Hrs 11/13/18 11/13/18 11/13/18 10:32 10:32 14:00 WBC RBC Hgb Hct MCV MCH MCHC RDW RDW Differential Plt Count MPV Sodium Potassium Chloride Carbon Dioxide Anion Gap BUN Creatinine Estim Creat Clear Calc Est GFR (MDRD) Af Amer Est GFR (MDRD) Non-Af BUN/Creatinine Ratio Glucose Lactic Acid 1.1 Calcium Magnesium 3.1 H Troponin I 0.056 H TSH 0.41 11/13/18 11/14/18 11/14/18 15:53 05:30 05:30 WBC 10.5 RBC 2.73 L Hgb 8.8 L Hct 28.3 L MCV 103.7 H MCH 32.2 H MCHC 31.1 L RDW 15.5 H RDW Differential 57.2 H Plt Count 183 MPV 10.8 Sodium 132 L Potassium 4.7 Chloride 94 L Carbon Dioxide 26.0 Anion Gap 12 BUN 43 H Creatinine 4.87 H Estim Creat Clear Calc 14.24 Est GFR (MDRD) Af Amer 15 L Est GFR (MDRD) Non-Af 13 L BUN/Creatinine Ratio 8.8 L Glucose 89 Lactic Acid Calcium 8.8 Magnesium Troponin I 0.052 H TSH Assessment/Plan All Active Problems (Last Reviewed 10/05/18 @ 10:13 by Ling Herrera) DAI (acute kidney injury) (Acute) Hypertensive emergency (Acute) Problem with dialysis access (Resolved) S/P dialysis catheter insertion (Resolved 05/22/18) History of thoracentesis (Resolved 05/22/18) Acute renal failure superimposed on chronic kidney disease (Resolved) Acute respiratory failure with hypoxia (Acute) Diastolic CHF (Acute) Leukocytosis (Resolved) ESRD. Last HD yesterday, continue as per MWF schedule. next HD tomorrow dyspnea. reviewed CXR. consistent with fluid overload and possible pneumonia. says dialysis did help with breathing but still dyspneic requiring Bipap. no peripheral edema. lung exam shows poor air entry both sides (chronic smoker). had some cramping after dialysis. residual dyspnea is likely related to pneumonia. hold off dialysis treatment for today Anemia. Hb is below goal. RITCHIE with HD will follow Thank you
--- NOTE | 2018-11-14 12:01 | CON.PCM_ITS ---
Problem List (1) ESRD (end stage renal disease) Status: Chronic Consultation - Renal 11/14/18 PCP/ Referring MD: Requesting physician: Dr Christensen Primary care physician: SEUN Poe Reason for Consultation:: ESRD - History of Present Illness History of Present Illness: The patient is a 68 year old M well known to us. ESRD on HD MWF schedule. Access if RIJ TDC. admitted with dyspnea. CXR consistent with fluid overload vs pneumonia. had WBC of around 20 k on admission. being treated for HCAP. had dialysis yesterday. felt significantly better after. today still having some dyspnea requiring Bipap at rest. no fever. weight is close to estimated dry weight. no cough. no fevers - Allergies Allergies: Allergies irbesartan [From Avapro] Allergy (Severe, Verified 10/26/18 08:38) Blisters zolpidem [From Ambien] Adverse Reaction (Severe, Verified 10/26/18 08:38) made me go crazy, memory loss - Current Medications Current Medications: Current Medications Acetaminophen (Tylenol) 650 mg PO Q6H PRN PRN PRN Reason: Mild Pain (scale 0-3)/T>100.7 Last Admin: 11/13/18 22:06 Dose: 650 mg Al Hydroxide/Mg Hydroxide (Mylanta Ii) 30 ml PO Q6H PRN PRN PRN Reason: Gastric Burning Albuterol Sulfate (Ventolin Aerosols) 2.5 mg INHALATION Q4H PRN PRN Reason: SOB/WHEEZE Last Admin: 11/14/18 07:20 Dose: 2.5 mg Alprazolam (Xanax) 0.5 mg PO TID PRN PRN Reason: ANXIETY Amlodipine Besylate (Norvasc) 10 mg PO QHS [facility] Last Admin: 11/13/18 22:06 Dose: 10 mg Aspirin (Ecotrin) 81 mg PO DAILY@0800 [facility] Last Admin: 11/14/18 08:30 Dose: 81 mg Atorvastatin Calcium (Lipitor) 80 mg PO QHS [facility] Last Admin: 11/13/18 22:05 Dose: 80 mg Calcium Acetate (Phoslo Gel Cap) 1,334 mg PO TIDCM [facility] Last Admin: 11/14/18 08:29 Dose: 1,334 mg Carvedilol (Coreg) 25 mg PO BID [facility] Last Admin: 11/14/18 10:50 Dose: Not Given Clopidogrel Bisulfate (Plavix) 75 mg PO DAILY [facility] Last Admin: 11/14/18 10:49 Dose: 75 mg Docusate Sodium (Colace) 200 mg PO BID PRN PRN PRN Reason: Constipation Guaifenesin (Mucinex) 1,200 mg PO BID [facility] Last Admin: 11/14/18 10:49 Dose: 1,200 mg Heparin Sodium (Porcine) (Heparin Na) 5,000 unit SC Q8 [facility] Last Admin: 11/14/18 00:57 Dose: Not Given Hydralazine HCl (Apresoline) 25 mg PO BID [facility] Last Admin: 11/14/18 10:50 Dose: Not Given Piperacillin Sod/Tazobactam Sod (Zosyn) 3.375 gm in 50 mls @ 12.5 mls/hr IV Q12 [facility] Last Admin: 11/14/18 10:49 Dose: 12.5 mls/hr Ciprofloxacin (Cipro) 400 mg in 200 mls @ 200 mls/hr IV Q24 [facility] Last Admin: 11/13/18 15:28 Dose: 200 mls/hr Vancomycin IV Pharmacy to Dose (1 ea/ Sodium Chloride) 500 mls @ 250 mls/hr IV PRN PRN; Protocol PRN Reason: Rx to Dose Vancomycin HCl () 500 mg in 100 mls @ 100 mls/hr IV X1 ONE Stop: 11/15/18 16:59 Isosorbide Mononitrate (Imdur) 30 mg PO DAILY [facility] Last Admin: 11/14/18 10:51 Dose: Not Given Lactulose (Chronulac, Cephulac) 30 gm PO TuThSa@1000 [facility] Magnesium Hydroxide (Milk Of Magnesia) 30 ml PO DAILY PRN PRN Reason: Constipation Oxycodone HCl (Oxyir) 5 mg PO Q4H PRN PRN PRN Reason: Moderate Pain (pain scale 4-5) Pramipexole Dihydrochloride (Mirapex) 0.5 mg PO QHS [facility] Last Admin: 11/13/18 22:05 Dose: 0.5 mg Prednisone () 10 mg PO DAILYCM [facility] Last Admin: 11/14/18 08:30 Dose: 10 mg Tamsulosin HCl (Flomax) 0.8 mg PO DAILY@0830 [facility] Last Admin: 11/14/18 08:29 Dose: 0.8 mg - Past Medical History Past Medical History (Chronic Problems): Chronic Problems (Last Reviewed 10/05/18 @ 10:13 by Ling Herrera) Chronic renal failure, stage 5 (Chronic) ESRD (end stage renal disease) (Chronic) History of non-ST elevation myocardial infarction (NSTEMI) (Chronic 01/21/11) History of left heart catheterization (Chronic 01/21/11) 10/13/[address] Barrientos @ [facility]:Per Dr. Jiménez @ [facility]: CABG recommended History of right and left heart catheterization (Chronic 05/24/18) Patent NICHOLAS to LAD, SVG to 1st OM and SVG to RCA. Elevated right heart pressures, significant Diastolic dysfunction per cath done @ [facility], Dr. Barrientos Stented coronary artery (Chronic) 2003, JASON to circumflex ; 10/13/2009 tsfer from [facility] to [facility], total of 5 bare metal stents to RCA per Dr. Barrientos @ [facility]: 3.5 X 18 Behavioral Health Aide, followed distally by 3.0 X12 Behavioral Health Aide to distal RCA;3.5 X 15 Behavioral Health Aide, followed proximally by 4.0 X 18 Behavioral Health Aide to Mid RCA; 4.0 X 18 Behavioral Health Aide to Proximal RCA S/P CABG x 3 (Chronic 01/26/11) [facility] per Dr. Osito Hernandez: NICHOLAS to LAD, reverse SVG to OMbranch of CX, reverse SVG to PDA of RCA. PDA endarterectomy. Status post peripheral artery angioplasty with insertion of stent (Chronic ~2010) Right common iliac, [facility] Atherosclerotic heart disease of [place] coronary artery without angina pectoris (Chronic) 2003, JASON to circumflex ; 10/10/2009 tsfer from [facility] to [facility], total of 5 bare metal stents to RCA; CABG X 3 vessels @ [facility] 01/31/2011 (critical left main and restenosis of RCA stents) HLD (hyperlipidemia) (Chronic) HTN (hypertension) (Chronic) PAD (peripheral artery disease) (Chronic) COPD (chronic obstructive pulmonary disease) (Chronic) Tobacco dependence (Chronic) Anemia (Chronic) BPH (benign prostatic hyperplasia) (Chronic) - Past Surgical History Surgical History: coronary bypass surgery, tonsillectomy - Social History Smoking Status: Current every day smoker - Family History Maternal Family History: Family History (Last Reviewed 11/13/18 @ 12:56 by Manoj Christensen MD) Father CAD (coronary artery disease) Hypertension Kidney disease CVA (cerebral vascular accident) Other Cancer History Items: Heart Disease Paternal Family History: Family History (Last Reviewed 11/13/18 @ 12:56 by Manoj Christensen MD) Father CAD (coronary artery disease) Hypertension Kidney disease CVA (cerebral vascular accident) Other Cancer History Items: Heart Disease Review of Systems Constitutional: Denies: Chills, Fever, Weight Change HEENT: Denies: Head Aches, Sinus Congestion, Sinus Drainage Cardiovascular: Denies: Chest Pain, Palpitations Respiratory: Reports: Shortness of Breath, Shortness of breath at rest. Denies: Cough, Sputum production Gastrointestinal: Denies: Abdominal Pain, Nausea, Vomiting Genitourinary: Denies: Dysuria Musculoskeletal: Denies: Joint Pain, Joint Tenderness Skin: Denies: Rash, Wounds Neurological: Denies: Numbness, Tingling, Focal weakness Psychiatric: Denies: Anxiety, Depression, Homicidal Ideations, Suicidal Ideations Hematologic/ Lymphatic: Denies: Easy Bruising, Easy Bleeding - Physical Exam General: Alert, Oriented x3, Cooperative HEENT: Atraumatic, PERRLA, EOMI, Normocephalic Neck: Supple, No JVD, Negative Carotid Bruits Lungs: Clear to auscultation, Normal air movement Cardiovascular: Regular rate, No murmurs Abdomen: Bowel Sounds Present, Soft, Non Tender Extremities: No edema, Capillary Refill Less than 3 Seconds Skin: No rashes, No breakdown Musculoskeletal: No Tenderness to Palpation of Joints or Extremities Neurological: Cranial nerves II-XII grossly intact Psych/Mental Status: Normal Affect, Appropriate Vital Signs Temp Pulse Resp BP Pulse Ox 98.6 F 71 20 H 119/47 L 94 11/14/18 10:00 11/14/18 10:00 11/14/18 10:00 11/14/18 10:11/14/18 10:00 Oxygen Flow Rate (L/min) 2 Oxygen Delivery Method Bi-pap Weight: 79.3 kg Body Mass Index (BMI) 27.0 Finger Stick Blood Glucose 200 Intake and Output for Last 24 Hours 11/12/18 11/13/18 11/14/18 23:59 23:59 23:59 Intake Total 1200 / 1200 275.4 / 275.4 Output Total 3800 / 3800 0 / 0 Balance -2600 / -2600 275.4 / 275.4 Microbiology Past 72 Hours 11/13/18 13:08 Influenza Types A,B Direct FA (ESA) - Final Mucosa - Nose Laboratory Tests Past 24 Hrs 11/13/18 11/13/18 11/13/18 10:32 10:32 14:00 WBC RBC Hgb Hct MCV MCH MCHC RDW RDW Differential Plt Count MPV Sodium Potassium Chloride Carbon Dioxide Anion Gap BUN Creatinine Estim Creat Clear Calc Est GFR (MDRD) Af Amer Est GFR (MDRD) Non-Af BUN/Creatinine Ratio Glucose Lactic Acid 1.1 Calcium Magnesium 3.1 H Troponin I 0.056 H TSH 0.41 11/13/18 11/14/18 11/14/18 15:53 05:30 05:30 WBC 10.5 RBC 2.73 L Hgb 8.8 L Hct 28.3 L MCV 103.7 H MCH 32.2 H MCHC 31.1 L RDW 15.5 H RDW Differential 57.2 H Plt Count 183 MPV 10.8 Sodium 132 L Potassium 4.7 Chloride 94 L Carbon Dioxide 26.0 Anion Gap 12 BUN 43 H Creatinine 4.87 H Estim Creat Clear Calc 14.24 Est GFR (MDRD) Af Amer 15 L Est GFR (MDRD) Non-Af 13 L BUN/Creatinine Ratio 8.8 L Glucose 89 Lactic Acid Calcium 8.8 Magnesium Troponin I 0.052 H TSH Assessment/Plan All Active Problems (Last Reviewed 10/05/18 @ 10:13 by Ling Herrera) DAI (acute kidney injury) (Acute) Hypertensive emergency (Acute) Problem with dialysis access (Resolved) S/P dialysis catheter insertion (Resolved 05/22/18) History of thoracentesis (Resolved 05/22/18) Acute renal failure superimposed on chronic kidney disease (Resolved) Acute respiratory failure with hypoxia (Acute) Diastolic CHF (Acute) Leukocytosis (Resolved) ESRD. Last HD yesterday, continue as per MWF schedule. next HD tomorrow dyspnea. reviewed CXR. consistent with fluid overload and possible pneumonia. says dialysis did help with breathing but still dyspneic requiring Bipap. no peripheral edema. lung exam shows poor air entry both sides (chronic smoker). had some cramping after dialysis. residual dyspnea is likely related to pneumonia. hold off dialysis treatment for today Anemia. Hb is below goal. RITCHIE with HD will follow Thank you
--- NOTE | 2018-11-14 14:57 | ECHOD_ITS ---
Reason For Study: CAD/ASHD Procedure This was a 2D Doppler, Color Flow transthoracic echocardiogram. The study was technically difficult. Exam performed portable in patient room. Left Ventricle Normal LV size. Left ventricular systolic function is normal. The estimated ejection fraction is 60 %. No regional wall motion abnormalities noted. Right Ventricle Normal RV size. Normal systolic function. Atria The left atrium is mildly enlarged. Normal right atrium. No doppler evidence for ASD. Mitral Valve There is no mitral annular calcification. Normal mitral valve. The mitral valve chordae are thickened and/or calcified. Moderate (2+) mitral valve insufficiency. Tricuspid Valve Normal tricuspid valve. Mild tricuspid valve insufficiency. Unable to estimate RV systolic pressure/pulmonary artery pressure due to technically difficult study. Aortic Valve Trisinus/trileaflet aortic valve. Normal aortic valve. Pulmonic Valve The pulmonic valve is not well visualized. Great Vessels Normal sized aortic root. Calcified aortic root. Pericardium/Pleural No pericardial effusion. MMode/2D Measurements & Calculations LVIDd: 5.1 cm IVSd: 1.3 cm Ao root diam: 3.6 cm LVIDs: 3.9 cm LVPWd: 1.1 cm LA dimension: 4.5 cm FS: 22.8 % LAV(MOD-bp): 79.4 ml LA A4 area: 21.1 cm2 RA A4 area: 16.1 cm2 LAV(MOD-bp) Indexed: 41.2 ml/m2 LAV(MOD-sp2): 82.7 ml LAV(MOD-sp4): 66.7 ml Time Measurements MV dec time: 0.21 sec Doppler Measurements & Calculations MV E max grabiel: 129.1 cm/sec Lat Peak E' Grabiel: 5.2 cm/sec Med Peak E' Grabiel: 3.9 cm/sec MV A max grabiel: 43.7 cm/sec E/E' lat: 24.7 E/E' med: 32.8 MV E/A: 3.0 MV V2 max: 144.5 cm/sec MV P1/2t max grabiel: 143.5 cm/sec Ao V2 max: 104.8 cm/sec MV max P.3 mmHg MV P1/2t: 59.4 msec Ao max P.4 mmHg MV V2 mean: 67.7 cm/sec MV dec slope: 707.7 cm/sec2 Ao V2 mean: 66.5 cm/sec MV mean P.3 mmHg MVA(P1/2t): 3.7 cm2 Ao mean P.0 mmHg MV V2 VTI: 30.8 cm Ao V2 VTI: 22.8 cm LV V1 max: 87.9 cm/sec PA V2 max: 110.7 cm/sec LV V1 max P.1 mmHg LV V1 mean P.7 mmHg LV V1 mean: 62.0 cm/sec LV V1 VTI: 23.7 cm Interpretation Summary The study was technically difficult. Left ventricular systolic function is normal. The estimated ejection fraction is 60 %. The left atrium is mildly enlarged. The mitral valve chordae are thickened and/or calcified. Moderate (2+) mitral valve insufficiency. Mild tricuspid valve insufficiency. Calcified aortic root. Unable to estimate RV systolic pressure/pulmonary artery pressure due to technically difficult study. Transmitral diastolic flow velocities suggest diastolic dysfunction (pseudonormal pattern). Ordering Physician: Arnaldo Mckeon Referring Physician: WONG MALIK Performed By: Morro Anguiano RCS
[2018-11-14] MEDS: Ciprofloxacin 400 MG/200 ML BAG 200 MG IV (15:02)
--- NOTE | 2018-11-14 15:07 | PCM.CONS.C ---
Problem List (1) Abnormal cardiac enzyme level Status: Acute (2) Atherosclerotic heart disease of [place] coronary artery without angina pectoris Status: Chronic Comment: 2003, JASON to circumflex ; 10/10/2009 tsfer from [facility] to [facility], total of 5 bare metal stents to RCA; CABG X 3 vessels @ [facility] 01/31/2011 (critical left main and restenosis of RCA stents) (3) Stented coronary artery Status: Chronic Comment: 2003, JASON to circumflex ; 10/13/2009 tsfer from [facility] to [facility], total of 5 bare metal stents to [facility]: 3.5 X 18 Nursery Laborer, followed distally by 3.0 X12 Nursery Laborer to distal RCA;3.5 X 15 Nursery Laborer, followed proximally by 4.0 X 18 Nursery Laborer to Mid RCA; 4.0 X 18 Nursery Laborer to Proximal RCA (4) S/P CABG x 3 Status: Chronic Comment: [facility] per Dr. Osito Hernandez: NICHOLAS to LAD, reverse SVG to OMbranch of CX, reverse SVG to PDA of RCA. PDA endarterectomy. (5) Diastolic CHF Status: Acute Qualifiers: Heart failure chronicity: acute on chronic Qualified Code(s): I50.33 - Acute on chronic diastolic (congestive) heart failure (6) HLD (hyperlipidemia) Status: Chronic Qualifiers: (7) HTN (hypertension) Status: Chronic Qualifiers: (8) PAD (peripheral artery disease) Status: Chronic (9) COPD (chronic obstructive pulmonary disease) Status: Chronic Qualifiers: (10) ESRD (end stage renal disease) Status: Chronic Reason for Consult Date of Consultation: 11/14/18 History of Present Illness: The patient is a 68 year old White male who was referred for evaluation of abnormal cardiac enzymes in the setting of a history of underlying CAD, PCI, CABG, diastolic mediated CHF, hyperlipidemia, hypertension, peripheral arterial occlusive disease, COPD, with end-stage renal failure on chronic hemodialysis ([id number]). The patient states that the best of his knowledge he has not been experiencing any classic chest discomfort for angina pectoris. He notes he is chronically short of breath and dyspneic. He states recently he has been coughing. He has hurt himself wheezing. He does have lower extremity peripheral pitting edema with an element of erythema in his lower calf/ankle areas. He has denied any near syncope or syncope. He states he was told at dialysis that they may have to remove more fluid. He was being evaluated in the emergency department. He was found to have indeterminate troponin I levels. He was placed in the PCU for further evaluation and care. His ECG demonstrated sinus rhythm with nonspecific ST/T-wave abnormality. Of note he has had somewhat chronically abnormal cardiac enzyme/indeterminate troponin I levels in the past. [] Past Medical History Allergies/Adverse Reactions: Allergies irbesartan [From Avapro] Allergy (Severe, Verified 10/26/18 08:38) Blisters zolpidem [From Ambien] Adverse Reaction (Severe, Verified 10/26/18 08:38) made me go crazy, memory loss Home Medications: Ambulatory Orders Medication Instructions Recorded Albuterol Sulfate 2.5 mg IH Q4H PRN 11/13/18 Alprazolam [Xanax] 0.5 mg PO TID PRN 11/13/18 Amlodipine [Norvasc] 10 mg PO QHS 11/13/18 Aspirin E.C. [Ecotrin] 81 mg PO DAILY@0800 11/13/18 Carvedilol [Coreg] 25 mg PO BID 11/13/18 Clopidogrel Bisulfate [Plavix] 75 mg PO DAILY 11/13/18 Ferric Citrate [Auryxia] 210 mg PO BID 11/13/18 Isosorbide Mononitrate [Imdur] 30 mg PO DAILY 11/13/18 Lactulose 30 gm PO QODAY 11/13/18 Prednisone 10 mg PO DAILY 11/13/18 Ropinirole HCl [Requip] 1 mg PO QHS 11/13/18 Rosuvastatin Calcium [Crestor] 40 mg PO QHS 11/13/18 Smz/Tmp Ds [Bactrim Ds] 1 tablet PO BID 11/13/18 Tamsulosin HCl [Flomax] 0.8 mg PO DAILY 11/13/18 hydrALAZINE [Apresoline] 25 mg PO BID 11/13/18 Past Medical History (Chronic Problems): Chronic Problems (Last Reviewed 10/05/18 @ 10:13 by Ling Herrera) Chronic renal failure, stage 5 (Chronic) ESRD (end stage renal disease) (Chronic) History of non-ST elevation myocardial infarction (NSTEMI) (Chronic 01/21/11) History of left heart catheterization (Chronic 01/21/11) 10/13/[address] Barrientos @ [facility]:Per Dr. Jiménez @ [facility]: CABG recommended History of right and left heart catheterization (Chronic 05/24/18) Patent NICHOLAS to LAD, SVG to 1st OM and SVG to RCA. Elevated right heart pressures, significant Diastolic dysfunction per cath done @ [facility], Dr. Barrientos Stented coronary artery (Chronic) 2003, JASON to circumflex ; 10/13/2009 tsfer from [facility] to [facility], total of 5 bare metal stents to RCA per Dr. Barrientos @ [facility]: 3.5 X 18 Nursery Laborer, followed distally by 3.0 X12 Nursery Laborer to distal RCA;3.5 X 15 Nursery Laborer, followed proximally by 4.0 X 18 Nursery Laborer to Mid RCA; 4.0 X 18 Nursery Laborer to Proximal RCA S/P CABG x 3 (Chronic 01/26/11) [facility] per Dr. Osito Hernandez: NICHOLAS to LAD, reverse SVG to OMbranch of CX, reverse SVG to PDA of RCA. PDA endarterectomy. Status post peripheral artery angioplasty with insertion of stent (Chronic ~2010) Right common iliac, [facility] Atherosclerotic heart disease of [place] coronary artery without angina pectoris (Chronic) 2003, JASON to circumflex ; 10/10/2009 tsfer from [facility] to [facility], total of 5 bare metal stents to RCA; CABG X 3 vessels @ [facility] 01/31/2011 (critical left main and restenosis of RCA stents) HLD (hyperlipidemia) (Chronic) HTN (hypertension) (Chronic) PAD (peripheral artery disease) (Chronic) COPD (chronic obstructive pulmonary disease) (Chronic) Tobacco dependence (Chronic) Anemia (Chronic) BPH (benign prostatic hyperplasia) (Chronic) Surgical History: coronary bypass surgery, tonsillectomy - *Family History Maternal Family History: Family History (Last Reviewed 11/13/18 @ 12:56 by Manoj Christensen MD) Father CAD (coronary artery disease) Hypertension Kidney disease CVA (cerebral vascular accident) Other Cancer History Items: Heart Disease Paternal Family History: Family History (Last Reviewed 11/13/18 @ 12:56 by Manoj Christensen MD) Father CAD (coronary artery disease) Hypertension Kidney disease CVA (cerebral vascular accident) Other Cancer History Items: Heart Disease Lives: Spouse/ Significant Other Smoking Status: Current every day smoker Alcohol: None Drugs: None Review of Systems - Review of Systems General: Reports: Fever. Denies: Fatigue, Night Sweats Cardiovascular: Reports: Shortness of Breath, Peripheral Edema. Denies: Chest Discomfort, Orthopnea, PND, Palpitations, Lightheadedness, Dizziness, Near Syncope, Syncope Respiratory: Reports: Cough, Shortness of Breath. Denies: Sputum Production, Hemoptysis Gastrointestinal: Denies: Hematemesis, Hematochezia, Melena Genitourinary: Denies: Dysuria, Hematuria Skin: Denies: Rash Subjectve: This is a 68-year-old white male who appears to be resting reasonably comfortably at the moment wearing a BiPAP device on and off but in no acute distress. Objective: Vital Signs Temp Pulse Resp BP Pulse Ox 98.7 F 70 20 H 132/56 H 96 11/14/18 14:59 11/14/18 14:59 11/14/18 14:59 11/14/18 14:59 11/14/18 14:59 Oxygen Flow Rate (L/min) 2 Oxygen Delivery Method Bi-pap Weight: 174 lb 13.225 oz Body Mass Index (BMI) 27.0 Finger Stick Blood Glucose 200 Intake and Output for Last 24 Hours 11/12/18 11/13/18 11/14/18 23:59 23:59 23:59 Intake Total 1200 / 1200 1203.4 / 1203.4 Output Total 3800 / 3800 0 / 0 Balance -2600 / -2600 1203.4 / 1203.4 General: Awake, Alert, Oriented x 3, Cooperative, No Acute Distress HEENT: Atraumatic, Normocephalic, PERRL, EOMI, Sclera Non Icteric Oral: Moist Mucosa Neck: Supple, Good ROM, No JVD Lungs: Rhonchi, Expiratory Wheezes-Viral Cardiovascular: Regular Rhythm, Normal S1, Normal S2 Vascular: No Carotid Bruits Abdomen: Bowel Sounds Present, Soft, Non Tender Extremities: Mild RLE Edema, Mild LLE Edema Musculoskeletal: Erythema - Bilateral lower calf/ankle areas Psych/Mental Status: Appropriate 11/13/18 15:53: Troponin I 0.052 H 11/14/18 05:30: WBC 10.5, RBC 2.73 L, Hgb 8.8 L, Hct 28.3 L, MCV 103.7 H, MCH 32.2 H, MCHC 31.1 L, RDW 15.5 H, RDW Differential 57.2 H, Plt Count 183, MPV 10.8 11/14/18 05:30: Sodium 132 L, Potassium 4.7, Chloride 94 L, Carbon Dioxide 26.0, Anion Gap 12, BUN 43 H, Creatinine 4.87 H, Est GFR (MDRD) Af Amer 15 L, Est GFR (MDRD) Non-Af 13 L, BUN/Creatinine Ratio 8.8 L, Glucose 89, Calcium 8.8 Rhythm:Sinus rhythm EKG:As noted above Cardiac catheterization: A 2018: Left ventricle considered normal with size, wall motion, and systolic function with an LVEF 55%; left ventricular end-diastolic pressure elevated; left main coronary artery with 85% stenosis; LAD with mid 30% stenosis; LCX with proximal 90% stenosis; RCA with in-stent 20% stenosis; NICHOLAS to the LAD patent; SVG to the OM patent; SVG to the RCA patent; recommendations for continued medical management Peripheral vascular findings: A 2018: Abdominal aorta with atherosclerotic 30% stenosis; right renal artery with 30% stenosis; left renal artery. Occluded with retrograde collaterals CXR:Preliminary evaluation: Possible increased pulmonary vascularity/pleural effusion; cannot exclude underlying infiltrate; please see official report Assessment/Plan 1. Abnormal cardiac enzymes The patient has indeterminate troponin I levels. He has a history of indeterminate troponin levels in the past. He has undergone noninvasive and invasive evaluation the past as noted. He has continued medical management. At the present time it is unclear whether his indeterminate polar I levels represent a new acute coronary syndrome event versus being a tight 2 event secondary to his underlying chronic cardiovascular disease with concerns of his diastolic mediated CHF superimposed upon underlying end-stage renal disease and chronic hemodialysis. At the moment he will continue to be monitored. Her cardiac enzymes and ECGs can be followed. He can have a followup echocardiogram to evaluate her left ventricle for new wall motion abnormalities. Depending upon his clinical course he may or may not need repeat evaluation noninvasively or invasively. In the interim he should continue medical management as best as possible. This will include agents such as aspirin, antiplatelet therapy, nitrates, beta blockers, afterload reducing agents, lipid lowering agents, etc. all as deemed appropriate. 2. CAD status post CABG status post PCI At the present time he has undergone previous invasive evaluation as noted above. At that time recommendations where made for continued medical management. He will continue evaluation as noted above. Depending upon his clinical course he may or may not need repeat invasive evaluation. In the meantime he will continue medical management. 3. Diastolic mediated CHF There is concern of diastolic mediated CHF. This may be acute or chronic. He will need to continue medical management. However he is dependent on hemodialysis for volume support. 4. Hyperlipidemia He will continue medical therapy. 5. Hypertension His blood pressure medications may need to be adjusted depending upon blood pressure response. Also his hemodialysis hopefully will be helpful with his blood pressure management. 6. Peripheral arterial occlusive disease He does have extensive peripheral arterial occlusive disease. He states he has also undergone evaluation with lower extremities before in [place], [place] with no significant improvement. 7. COPD He does have COPD. He is using his BiPAP device on and off. He will continue buy which care per internal medicine and if need be pulmonology. 8. Endstage renal disease on chronic hemodialysis He will continue under the care of a nephrology. This note was generated using a voice recognition system and there may be incorrect words, spelling or punctuation that were not noted when reviewing the office note prior to saving.
--- NOTE | 2018-11-14 15:11 | CON.PCM_ITS ---
Problem List (1) Abnormal cardiac enzyme level Status: Acute (2) Atherosclerotic heart disease of [place] coronary artery without angina pectoris Status: Chronic Comment: 2003, JASON to circumflex ; [facility]/10/[facility], total of 5 bare metal stents to RCA; CABG X 3 vessels @ [facility] 01/31/2011 (critical left main and restenosis of RCA stents) (3) Stented coronary artery Status: Chronic Comment: 2003, JASON to circumflex ; 10/13/2009 tsfer from [facility] to [facility], total of 5 bare metal stents [facility]: 3.5 X 18 [employer], followed distally by 3.0 X12 [employer] Clerk to distal RCA;3.5 X 15 [employer] Clerk, followed proximally by 4.0 X 18 [employer] Clerk to Mid RCA; 4.0 X 18 [employer] Clerk to Proximal RCA (4) S/P CABG x 3 Status: Chronic Comment: [facility] per Dr. Osito Hernandez: NICHOLAS to LAD, reverse SVG to OMbranch of CX, reverse SVG to PDA of RCA. PDA endarterectomy. (5) Diastolic CHF Status: Acute Qualifiers: Heart failure chronicity: acute on chronic Qualified Code(s): I50.33 - Ac karl on chronic diastolic (congestive) heart failure (6) HLD (hyperlipidemia) Status: Chronic Qualifiers: (7) HTN (hypertension) Status: Chronic Qualifiers: (8) PAD (peripheral artery disease) Status: Chronic (9) COPD (chronic obstructive pulmonary disease) Status: Chronic Qualifiers: (10) ESRD (end stage renal disease) Status: Chronic Reason for Consult Date of Consultation: 11/14/18 History of Present Illness: The patient is a 68 year old White male who was referred for evaluation of abnormal cardiac enzymes in the setting of a history of underlying CAD, PCI, CABG, diastolic mediated CHF, hyperlipidemia, hypertension, peripheral arterial occlusive disease, COPD, with end-stage renal failure on chronic hemodialysis ([id number]). The patient states that the best of his knowledge he has not been experiencing any classic chest discomfort for angina pectoris. He notes he is chronically short of breath and dyspneic. He states recently he has been coughing. He has hurt himself wheezing. He does have lower extremity peripheral pitting edema with an element of erythema in his lower calf/ankle areas. He has denied any near syncope or syncope. He states he was told at dialysis that they may have to remove more fluid. He was being evaluated in the emergency department. He was found to have indeterminate troponin I levels. He was placed in the PCU for further evaluation and care. His ECG demonstrated sinus rhythm with nonspecific ST/T-wave abnormality. Of note he has had somewhat chronically abnormal cardiac enzyme/indeterminate troponin I levels in the past. [] Past Medical History Allergies/Adverse Reactions: Allergies irbesartan [From Avapro] Allergy (Severe, Verified 10/26/18 08:38) Blisters zolpidem [From Ambien] Adverse Reaction (Severe, Verified 10/26/18 08:38) made me go crazy, memory loss Home Medications: Ambulatory Orders Medication Instructions Recorded Albuterol Sulfate 2.5 mg IH Q4H PRN 11/13/18 Alprazolam [Xanax] 0.5 mg PO TID PRN 11/13/18 Amlodipine [Norvasc] 10 mg PO QHS 11/13/18 Aspirin E.C. [Ecotrin] 81 mg PO DAILY@0800 11/13/18 Carvedilol [Coreg] 25 mg PO BID 11/13/18 Clopidogrel Bisulfate [Plavix] 75 mg PO DAILY 11/13/18 Ferric Citrate [Auryxia] 210 mg PO BID 11/13/18 Isosorbide Mononitrate [Imdur] 30 mg PO DAILY 11/13/18 Lactulose 30 gm PO QODAY 11/13/18 Prednisone 10 mg PO DAILY 11/13/18 Ropinirole HCl [Requip] 1 mg PO QHS 11/13/18 Rosuvastatin Calcium [Crestor] 40 mg PO QHS 11/13/18 Smz/Tmp Ds [Bactrim Ds] 1 tablet PO BID 11/13/18 Tamsulosin HCl [Flomax] 0.8 mg PO DAILY 11/13/18 hydrALAZINE [Apresoline] 25 mg PO BID 11/13/18 Past Medical History (Chronic Problems): Chronic Problems (Last Reviewed 10/05/18 @ 10:13 by Ling Herrera) Chronic renal failure, stage 5 (Chronic) ESRD (end stage renal disease) (Chronic) History of non-ST elevation myocardial infarction (NSTEMI) (Chronic 01/21/11) History of left heart catheterization (Chronic 01/21/11) 10/13/[address] Barrientos @ [facility]:Per Dr. Jiménez @ [facility]: CABG recommended History of right and left heart catheterization (Chronic 05/24/18) Patent NICHOLAS to LAD, SVG to 1st OM and SVG to RCA. Elevated right heart pressures, significant Diastolic dysfunction per cath done [facility], Dr. Barrientos Stented coronary artery (Chronic) 2003, JASON to circumflex ; 10/13/2009 tsfer from [facility] to [facility], total of 5 bare metal stents to RCA per Dr. Barrientos @ [facility]: 3.5 X 18 [employer] Clerk, followed distally by 3.0 X12 [employer] Clerk to distal RCA;3.5 X 15 [employer] Clerk, followed proximally by 4.0 X 18 [employer] Clerk to Mid RCA; 4.0 X 18 [employer] Clerk to Proximal RCA S/P CABG x 3 (Chronic 01/26/11) [facility] per Dr. Osito Hernandez: NICHOLAS to LAD, reverse SVG to OMbranch of CX, reverse SVG to PDA of RCA. PDA endarterectomy. Status post peripheral artery angioplasty with insertion of stent (Chronic ~2010) Right common iliac, [facility] Atherosclerotic heart disease of [place] coronary artery without angina pectoris (Chronic) 2003, JASON to circumflex ; 10/10/2009 [facility]fer from [facility] to [facility], total of 5 bare metal stents to RCA; CABG X 3 vessels @ [facility] 01/31/2011 (critical left main and restenosis of RCA stents) HLD (hyperlipidemia) (Chronic) HTN (hypertension) (Chronic) PAD (peripheral artery disease) (Chronic) COPD (chronic obstructive pulmonary disease) (Chronic) Tobacco dependence (Chronic) Anemia (Chronic) BPH (benign prostatic hyperplasia) (Chronic) Surgical History: coronary bypass surgery, tonsillectomy - *Family History Maternal Family History: Family History (Last Reviewed 11/13/18 @ 12:56 by Manoj Christensen MD) Father CAD (coronary artery disease) Hypertension Kidney disease CVA (cerebral vascular accident) Other Cancer History Items: Heart Disease Paternal Family History: Family History (Last Reviewed 11/13/18 @ 12:56 by Manoj Christensen MD) Father CAD (coronary artery disease) Hypertension Kidney disease CVA (cerebral vascular accident) Other Cancer History Items: Heart Disease Lives: Spouse/ Significant Other Smoking Status: Current every day smoker Alcohol: None Drugs: None Review of Systems - Review of Systems General: Reports: Fever. Denies: Fatigue, Night Sweats Cardiovascular: Reports: Shortness of Breath, Peripheral Edema. Denies: Chest Discomfort, Orthopnea, PND, Palpitations, Lightheadedness, Dizziness, Near Syncope, Syncope Respiratory: Reports: Cough, Shortness of Breath. Denies: Sputum Production, Hemoptysis Gastrointestinal: Denies: Hematemesis, Hematochezia, Melena Genitourinary: Denies: Dysuria, Hematuria Skin: Denies: Rash Subjectve: This is a 68-year-old white male who appears to be resting reasonably comfortably at the moment wearing a BiPAP device on and off but in no acute distress. Objective: Vital Signs Temp Pulse Resp BP Pulse Ox 98.7 F 70 20 H 132/56 H 96 11/14/18 14:59 11/14/18 14:59 11/14/18 14:59 11/14/18 14:59 11/14/18 14:59 Oxygen Flow Rate (L/min) 2 Oxygen Delivery Method Bi-pap Weight: 174 lb 13.225 oz Body Mass Index (BMI) 27.0 Finger Stick Blood Glucose 200 Intake and Output for Last 24 Hours 11/12/18 11/13/18 11/14/18 23:59 23:59 23:59 Intake Total 1200 / 1200 1203.4 / 1203.4 Output Total 3800 / 3800 0 / 0 Balance -2600 / -2600 1203.4 / 1203.4 General: Awake, Alert, Oriented x 3, Cooperative, No Acute Distress HEENT: Atraumatic, Normocephalic, PERRL, EOMI, Sclera Non Icteric Oral: Moist Mucosa Neck: Supple, Good ROM, No JVD Lungs: Rhonchi, Expiratory Wheezes-Viral Cardiovascular: Regular Rhythm, Normal S1, Normal S2 Vascular: No Carotid Bruits Abdomen: Bowel Sounds Present, Soft, Non Tender Extremities: Mild RLE Edema, Mild LLE Edema Musculoskeletal: Erythema - Bilateral lower calf/ankle areas Psych/Mental Status: Appropriate 11/13/18 15:53: Troponin I 0.052 H 11/14/18 05:30: WBC 10.5, RBC 2.73 L, Hgb 8.8 L, Hct 28.3 L, MCV 103.7 H, MCH 32.2 H, MCHC 31.1 L, RDW 15.5 H, RDW Differential 57.2 H, Plt Count 183, MPV 10.8 11/14/18 05:30: Sodium 132 L, Potassium 4.7, Chloride 94 L, Carbon Dioxide 26.0, Anion Gap 12, BUN 43 H, Creatinine 4.87 H, Est GFR (MDRD) Af Amer 15 L, Est GFR (MDRD) Non-Af 13 L, BUN/Creatinine Ratio 8.8 L, Glucose 89, Calcium 8.8 Rhythm:Sinus rhythm EKG:As noted above Cardiac catheterization: A 2018: Left ventricle considered normal with size, wall motion, and systolic function with an LVEF 55%; left ventricular end- diastolic pressure elevated; left main coronary artery with 85% stenosis; LAD with mid 30% stenosis; LCX with proximal 90% stenosis; RCA with in-stent 20% stenosis; NICHOLAS to the LAD patent; SVG to the OM patent; SVG to the RCA patent; recommendations for continued medical management Peripheral vascular findings: A 2018: Abdominal aorta with atherosclerotic 30% stenosis; right renal artery with 30% stenosis; left renal artery. Occluded with retrograde collaterals CXR:Preliminary evaluation: Possible increased pulmonary vascularity/pleural effusion; cannot exclude underlying infiltrate; please see official report Assessment/Plan 1. Abnormal cardiac enzymes The patient has indeterminate troponin I levels. He has a history of indeterminate troponin levels in the past. He has undergone noninvasive and invasive evaluation the past as noted. He has continued medical management. At the present time it is unclear whether his indeterminate polar I levels represent a new acute coronary syndrome event versus being a tight 2 event secondary to his underlying chronic cardiovascular disease with concerns of his diastolic mediated CHF superimposed upon underlying end-stage renal disease and chronic hemodialysis. At the moment he will continue to be monitored. Her cardiac enzymes and ECGs can be followed. He can have a followup echocardiogram to evaluate her left ventricle for new wall motion abnormalities. Depending upon his clinical course he may or may not need repeat evaluation noninvasively or invasively. In the interim he should continue medical management as best as possible. This will include agents such as aspirin, antiplatelet therapy, nitrates, beta blockers, afterload reducing agents, lipid lowering agents, etc. all as deemed appropriate. 2. CAD status post CABG status post PCI At the present time he has undergone previous invasive evaluation as noted above. At that time recommendations where made for continued medical management. He will continue evaluation as noted above. Depending upon his clinical course he may or may not need repeat invasive evaluation. In the meantime he will continue medical management. 3. Diastolic mediated CHF There is concern of diastolic mediated CHF. This may be acute or chronic. He will need to continue medical management. However he is dependent on hemodialysis for volume support. 4. Hyperlipidemia He will continue medical therapy. 5. Hypertension His blood pressure medications may need to be adjusted depending upon blood pressure response. Also his hemodialysis hopefully will be helpful with his blood pressure management. 6. Peripheral arterial occlusive disease He does have extensive peripheral arterial occlusive disease. He states he has also undergone evaluation with lower extremities before in [place], [place] with no significant improvement. 7. COPD He does have COPD. He is using his BiPAP device on and off. He will continue buy which care per internal medicine and if need be pulmonology. 8. Endstage renal disease on chronic hemodialysis He will continue under the care of a nephrology. This note was generated using a voice recognition system and there may be incorrect words, spelling or punctuation that were not noted when reviewing the office note prior to saving.
[2018-11-14 16:39] LABS: Bacteria 0 SEEN /hpf (None Seen); Mucous, Urine 0 SEEN /hpf (<or=2+); Red Blood Cells-Urine 0 SEEN /hpf (0-5); Squamous Epithelial Cells - UA 0 SEEN /hpf (0-5)
[2018-11-14 16:42] LABS: Color, Urine Yellow (Yellow); Glucose, Dipstick Normal (Normal); Ketone-Dipstick 5 mg/dl (Negative); Leukocyte Esterase-Dipstick 500 /ul (Negative); Nitrite-Dipstick Negative (Negative); Occult Blood-Urine 250 /ul (Negative); Protein-Dipstick 100 mg/dl (Negative); Urine Clarity Turbid (Clear); Urine Urobilinogen 1 mg/dl (Normal)
[2018-11-14 16:43] LABS: Urine Bilirubin Dipstick 1 mg/dL (Negative)
[2018-11-14 16:48] LABS: White Blood Cells >100 SEEN /hpf (0-5)
[2018-11-14] MEDS: hydrALAZINE 25 MG Tablet PO (22:21)
[2018-11-14] MEDS: Carvedilol 25 MG Tablet PO (22:22)
[2018-11-14] MEDS: Atorvastatin Calcium 80 MG Tablet PO (22:22)
[2018-11-14] MEDS: Pramipexole Di-HCl 0.5 MG Tablet PO (22:22)
[2018-11-14] MEDS: amLODIPine 10 MG Tablet PO (22:22)
[2018-11-14] MEDS: Acetaminophen 325 MG Tablet 650 MG PO (22:41)
[2018-11-15] VITALS (19 sets, daily range): BP systolic 109–130; BP diastolic 48–79; PULSE 64–89; RESP 12–21; TEMP 36.6–37.2; O2SAT 94–98
--- NOTE | 2018-11-15 02:30 | CPS ---
Pt offered breathing treatment at this time by BATTER DEPOSITOR due to pt request if awake. Pt states he feels okay and the mask is doing fine for now. No treatment given at this time. Pt voices no needs at this time.
[2018-11-15] MEDS: oxyCODONE 5 MG Tablet PO ×2 (03:05→20:50)
[2018-11-15] MEDS: Albuterol 2.5 MG/3 ML VIAL.NEB. INHALATION ×3 (03:15→19:45)
--- NOTE | 2018-11-15 05:55 | EKG12_ITS ---
Test Reason : AM EKG Blood Pressure : / mmHG Vent. Rate : 063 BPM Atrial Rate : 063 BPM P-R Int : 240 ms QRS Dur : 104 ms QT Int : 446 ms P-R-T Axes : 038 074 117 degrees QTc Int : 456 ms Sinus rhythm with 1st degree A-V block Nonspecific T wave abnormality Abnormal ECG When compared with ECG of 13-NOV-2018 10:24, MANUAL COMPARISON REQUIRED, DATA IS UNCONFIRMED Confirmed by VIKY MONTENEGRO, JOS ([id number]), assignment desk editor SHIRA HURD ([id number]) on 11/17/2018 3:45:05 PM Referred By: IBETH Confirmed By:JOS SALMON MD
[2018-11-15 06:25] LABS: Anion Gap 17 (5-15); BUN 65 mg/dL (7-18); BUN/Creat Ratio 9.7 RATIO (10-20); Calcium,Total 8.8 mg/dL (8.5-10.1); Chloride 89 mmol/L (98-107); Creatinine, Serum 6.71 mg/dL (0.70-1.30); EST Glomerular Filtration Rate 9 mL/min (>60); Est Glom Filt Rate - Afr Amer 11 mL/min (>60); Estimated Creatinine Clearance 10.34 ml/min; Glucose 103 mg/dL (74-106); Potassium 5.1 mmol/L (3.5-5.1); Sodium Level 131 mmol/L (136-145)
[2018-11-15 06:35] LABS: Hematocrit 30.1 % (40-54); Hemoglobin 9.2 g/dl (13.0-16.5); Mean Corp Hgb Conc 30.6 g/gl (32-36); Mean Corpuscular Hgb 31.6 pg (27.0-32.0); Mean Corpuscular Volume 103.4 fL (80-94); Mean Platelet Vol. 10.6 fl (6.2-12.0); Platelet Count 180 K/mm3 (150-450); RBC Distribution Width CV 15.2 % (11.6-14.6); RBC Distribution Width SD 55.6 fl (35.1-43.9); Red Blood Count 2.91 M/mm3 (4.6-6.2); White Blood Count 9.7 K/mm3 (4.4-11.0)
[2018-11-15 06:47] LABS: Scan Indicated on CBC? Y/N NO
[2018-11-15] MEDS: Calcium Acetate 667 MG Capsule 1334 MG PO ×3 (08:46→18:45)
[2018-11-15] MEDS: Aspirin E.C. 81 MG Tablet PO (08:46)
[2018-11-15] MEDS: predniSONE 10 MG Tablet PO (08:47)
[2018-11-15] MEDS: Tamsulosin HCl 0.4 MG Capsule 0.8 MG PO (08:48)
--- NOTE | 2018-11-15 09:18 | PN_ITS ---
Patient Problems: Active and Suspected Problems (Last Reviewed 10/05/18 @ 10:13 by Ling Herrera) Abnormal cardiac enzyme level (Acute) Subjective: Patient seen overall clinical condition continues to improve. Patient heparin was held the night prior in view of his recent Hemoccult positive stool. His H&H has remained stable. Did discuss with patient who was not interested in having heparin subcutaneous for DVT prophylaxis Objective: GENERAL; Cooperative HEENT: Atraumatic; moist oral mucosa EYES; Anicteric, Normal Conjunctiva NECK; supple, normal thyroid, distended JVD. RESPIRATORY: Diminished to auscultation bilaterally, CARDIOVASCULAR: Regular S1 S2, GI: soft, non-tender, normoactive bowel sounds, : No Renal angle tenderness; EXTREMITIES: Trace edema, no clubbing, no cyanosis. MUSCULOSKELETAL: No Joint Tenderness; NEURO: Awake; no lateralizing signs. SKIN: Areas of ecchymosis on upper extremities PSYCH; flat affect Vitals/I&O's: Vital Signs Temp Pulse Resp BP Pulse Ox 97.9 F 65 18 110/55 L 94 11/15/18 02:48 11/15/18 08:20 11/15/18 03:15 11/15/18 02:48 11/15/18 08:50 Oxygen Flow Rate (L/min) 2.5 Oxygen Delivery Method Nasal Cannula Weight: 81.5 kg Body Mass Index (BMI) 27.0 Finger Stick Blood Glucose 200 Intake and Output for Last 24 Hours 11/13/18 11/14/18 11/15/18 23:59 23:59 23:59 Intake Total 1200 / 1200 2188.4 / 2188.4 315.2 / 315.2 Output Total 3800 / 3800 50 / 50 0 / 0 Balance -2600 / -2600 2138.4 / 2138.4 315.2 / 315.2 Microbiology Past 72 Hours 11/14/18 16:05 Urine, Clean Catch Streptococcus pneumoniae Antigen (M - Final 11/14/18 16:05 Urine, Clean Catch Legionella Antigen - Final 11/13/18 13:08 Mucosa - Nose Respiratory Panel (PCR) - Final 11/13/18 13:08 Mucosa - Nose Influenza Types A,B Direct FA (ESA) - Final Laboratory Results 11/14/18 16:05: Urine Color Yellow, Urine Clarity Turbid, Urine pH 5.0, Ur Specific [place] 1.020, Urine Protein 100 H, Urine Glucose (UA) Normal, Urine Ketones 5 H, Urine Occult Blood 250 H, Urine Nitrite Negative, Urine Bilirubin 1 H, Urine Urobilinogen 1 H, Ur Leukocyte Esterase 500 H, Urine RBC 0 SEEN, Urine WBC >100 SEEN, Ur Squamous Epith Cells 0 SEEN, Urine Bacteria 0 SEEN, Urine Mucus 0 SEEN 11/15/18 05:30: WBC 9.7, RBC 2.91 L, Hgb 9.2 L, Hct 30.1 L, MCV 103.4 H, MCH 31.6, MCHC 30.6 L, RDW 15.2 H, RDW Differential 55.6 H, Plt Count 180, MPV 10.6 11/15/18 05:30: Sodium 131 L, Potassium 5.1, Chloride 89 L, Carbon Dioxide 25.0, Anion Gap 17 H, BUN 65 H, Creatinine 6.71 H, Estim Creat Clear Calc 10.34, Est GFR (MDRD) Af Amer 11 L, Est GFR (MDRD) Non-Af 9 L, BUN/Creatinine Ratio 9.7 L, Glucose 103, Calcium 8.8 Current Medications Acetaminophen (Tylenol) 650 mg PO Q6H PRN PRN PRN Reason: Mild Pain (scale 0-3)/T>100.7 Last Admin: 11/14/18 22:41 Dose: 650 mg Al Hydroxide/Mg Hydroxide (Mylanta Ii) 30 ml PO Q6H PRN PRN PRN Reason: Gastric Burning Albuterol Sulfate (Ventolin Aerosols) 2.5 mg INHALATION Q4H PRN PRN Reason: SOB/WHEEZE Last Admin: 11/15/18 03:15 Dose: 2.5 mg Alprazolam (Xanax) 0.5 mg PO TID PRN PRN Reason: ANXIETY Amlodipine Besylate (Norvasc) 10 mg PO QHS [facility], [facility] Last Admin: 11/14/18 22:22 Dose: 10 mg Aspirin (Ecotrin) 81 mg PO DAILY@0800 [facility], [facility] Last Admin: 11/15/18 08:46 Dose: 81 mg Atorvastatin Calcium (Lipitor) 80 mg PO QHS [facility], [facility] Last Admin: 11/14/18 22:22 Dose: 80 mg Calcium Acetate (Phoslo Gel Cap) 1,334 mg PO TIDCM [facility], [facility] Last Admin: 11/15/18 08:46 Dose: 1,334 mg Carvedilol (Coreg) 25 mg PO BID [facility] Last Admin: 11/14/18 22:22 Dose: 25 mg Clopidogrel Bisulfate (Plavix) 75 mg PO DAILY [facility] Last Admin: 11/14/18 10:49 Dose: 75 mg Docusate Sodium (Colace) 200 mg PO BID PRN PRN PRN Reason: Constipation Guaifenesin (Mucinex) 1,200 mg PO BID [facility] Last Admin: 11/14/18 22:22 Dose: 1,200 mg Heparin Sodium (Porcine) (Heparin Na) 5,000 unit SC Q8 [facility] Last Admin: 11/14/18 22:35 Dose: Not Given Hydralazine HCl (Apresoline) 25 mg PO BID [facility] Last Admin: 11/14/18 22:21 Dose: 25 mg Piperacillin Sod/Tazobactam Sod (Zosyn) 3.375 gm in 50 mls @ 12.5 mls/hr IV Q12 [facility] Last Admin: 11/14/18 22:22 Dose: 12.5 mls/hr Ciprofloxacin (Cipro) 400 mg in 200 mls @ 200 mls/hr IV Q24 [facility] Last Admin: 11/14/18 15:02 Dose: 200 mls/hr Vancomycin IV Pharmacy to Dose (1 ea/ Sodium Chloride) 500 mls @ 250 mls/hr IV PRN PRN; Protocol PRN Reason: Rx to Dose Vancomycin HCl () 500 mg in 100 mls @ 100 mls/hr IV X1 ONE Stop: 11/15/18 16:59 Isosorbide Mononitrate (Imdur) 30 mg PO DAILY [facility] Last Admin: 11/14/18 10:51 Dose: Not Given Lactulose (Chronulac, Cephulac) 30 gm PO TuThSa@1000 [facility] Last Admin: 11/14/18 18:30 Dose: Not Given Magnesium Hydroxide (Milk Of Magnesia) 30 ml PO DAILY PRN PRN Reason: Constipation Oxycodone HCl (Oxyir) 5 mg PO Q4H PRN PRN PRN Reason: Moderate Pain (pain scale 4-5) Last Admin: 11/15/18 03:05 Dose: 5 mg Pramipexole Dihydrochloride (Mirapex) 0.5 mg PO QHS [facility] Last Admin: 11/14/18 22:22 Dose: 0.5 mg Prednisone () 10 mg PO DAILYCM [facility] Last Admin: 11/15/18 08:47 Dose: 10 mg Sodium Chloride () 5 - 15 ml IV UD PRN PRN Reason: SALINE FLUSH Tamsulosin HCl (Flomax) 0.8 mg PO DAILY@0830 [facility] Last Admin: 11/15/18 08:48 Dose: 0.8 mg Medical Necessity - Tobacco Use Smoking Status: Current every day smoker Assessment/Plan All Active Problems (Last Reviewed 10/05/18 @ 10:13 by Ling Herrera) Abnormal cardiac enzyme level (Acute) DAI (acute kidney injury) (Acute) Hypertensive emergency (Acute) Problem with dialysis access (Resolved) S/P dialysis catheter insertion (Resolved 05/22/18) History of thoracentesis (Resolved 05/22/18) Acute renal failure superimposed on chronic kidney disease (Resolved) Acute respiratory failure with hypoxia (Acute) Diastolic CHF (Acute) Leukocytosis (Resolved) Patient is a 68-year-old gentleman with multiple comorbidities including end- stage renal disease on hemodialysis Wednesdays and Fridays presented with progressive shortness of breath chest x-ray demonstrated features consistent with edema/infiltrate and assessment of acute on chronic diastolic heart failure in addition to suspected HCAP admitted to a monitored bed for further management. 1. Acute hypoxic respiratory failure secondary to combination of CHF from fluid overload (patient is a dialysis patient) as well as suspected healthcare acquired pneumonia. Patient was placed on noninvasive ventilation BiPAP admitted to a monitored bed for subsequent management. Patient has since been weaned off BiPAP 2. Suspected healthcare acquired pneumonia with possible gram-negative organisms. Patient was started on ciprofloxacin Zosyn as well as vancomycin pharmacy to dose. Patient was also placed on supplemental oxygen titrated to keep pulse ox greater than 92. Also did order for acute respiratory panel to rule out viral etiology ; respiratory panel and influenza as a supine negative. Did discontinue patient's vancomycin 3. Acute diastolic congestive heart failure: Echo on 04/08/2018 demonstrated features consistent with diastolic dysfunction with an EF of 55%; patient has been admitted to monitored bed managed with fluid restriction, strict input and output daily weights; consultation was placed to nephrology to manage patient fluid status through dialysis 4. Elevated troponin suspected to be secondary to demand ischemia from above patient denies chest pain however given patient past cardiac history of CAD with CABG and subsequent stent placement consultation was placed to cardiology 5. CAD with previous CABG with subsequent stent placement patient is on Plavix as well as statin therapy 6. End-stage renal disease on hemodialysis on Wednesdays and Fridays; auscultation placed to Dr. Alaniz patient's plywood matcher for dialysis orders 7. Hypertension-blood pressure controlled, home medications continued with dose adjustment as needed 8. Dyslipidemia-patient is on statin therapy, continued at home dose 9. COPD; nebs prn 10. Pulmonary hypertension with RSVP of 42 mmHg 11. Depression with anxiety patient is on SSRI as well as Xanax as needed 12. BPH, status post chronic Charles catheter 13. DVT prophylaxis SC Heparin Code Visit Inpatient E&M: 84878 Subs Hosp L2
[2018-11-15] MEDS: Piperacil/Tazobactam 3.375 GM/50 ML ML IV ×2 (09:20→22:59)
[2018-11-15] MEDS: 0.9% NaCl Peripheral Flush Adult/Peds IV ×2 (09:21→18:46)
--- NOTE | 2018-11-15 09:23 | PN.CARD_ITS ---
Subjectve: Patient sitting up in bed, awaiting dialysis, reports no chest pain or anginal symptoms. Telemetry negative. Objective: Vital Signs Temp Pulse Resp BP Pulse Ox 97.9 F 65 18 110/55 L 94 11/15/18 02:48 11/15/18 08:20 11/15/18 03:15 11/15/18 02:48 11/15/18 08:50 Oxygen Flow Rate (L/min) 2.5 Oxygen Delivery Method Nasal Cannula Weight: 179 lb 10.828 oz Body Mass Index (BMI) 27.0 Finger Stick Blood Glucose 200 Intake and Output for Last 24 Hours 11/13/18 11/14/18 11/15/18 23:59 23:59 23:59 Intake Total 1200 / 1200 2188.4 / 2188.4 315.2 / 315.2 Output Total 3800 / 3800 50 / 50 0 / 0 Balance -2600 / -2600 2138.4 / 2138.4 315.2 / 315.2 General: Awake, Alert, Oriented x 3 HEENT: PERRL, EOMI, Sclera Non Icteric Neck: Supple, Good ROM, No Lymph Node Enlargement Lungs: Rales - Viral Bases Cardiovascular: Regular Rhythm, Normal S1, Normal S2, No Murmurs, No Rubs, No Gallops Vascular: No Carotid Bruits, Normal Femoral Pulses, Normal Radial Pulses, Normal Dorsalis Pedal Pulse, Normal Posterior Tibial Pulses Abdomen: Bowel Sounds Present, Soft, Non Tender, No HSM, No Organomegaly Extremities: No Cyanosis, No Clubbing, No edema Neurological: No Focal Motor or Sensory Deficit 11/14/18 16:05: Urine Color Yellow, Urine Clarity Turbid, Urine pH 5.0, Ur Specific [place] 1.020, Urine Protein 100 H, Urine Glucose (UA) Normal, Urine Ketones 5 H, Urine Occult Blood 250 H, Urine Nitrite Negative, Urine Bilirubin 1 H, Urine Urobilinogen 1 H, Ur Leukocyte Esterase 500 H, Urine RBC 0 SEEN, Urine WBC >100 SEEN 11/15/18 05:30: WBC 9.7, RBC 2.91 L, Hgb 9.2 L, Hct 30.1 L, MCV 103.4 H, MCH 31.6, MCHC 30.6 L, RDW 15.2 H, RDW Differential 55.6 H, Plt Count 180, MPV 10.6 11/15/18 05:30: Sodium 131 L, Potassium 5.1, Chloride 89 L, Carbon Dioxide 25.0, Anion Gap 17 H, BUN 65 H, Creatinine 6.71 H, Est GFR (MDRD) Af Amer 11 L, Est GFR (MDRD) Non-Af 9 L, BUN/Creatinine Ratio 9.7 L, Glucose 103, Calcium 8.8 Rhythm: EKG: ECHO: Stress Test: Cardiac Cath: PCI: CT Surgery: Holter monitor: EPS: PPM: CXR: Chest CT Scan: Medical Necessity - Tobacco Use Smoking Status: Current every day smoker Assessment/Plan 1. Coronary artery disease: The patient had a very small troponin release on this admission most likely as a result of type II demand ischemia. He recently had a catheterization several months ago, and no intervention was recommended at that time. At that time is found to have triple-vessel disease, and widely patent grafts with at least moderate pulmonary hypertension by right heart catheterization. This is evidenced on his chest x-ray which shows mild bilateral pulmonary edema and small bilateral pleural effusions. Would not recommend any additional cardiac evaluation at this time. Would not recommend echocardiogram or catheterization at this time. Would recommend however continuing baby aspirin, Plavix, and additional fluid removal with dialysis later today to optimize his pulmonary pressures. Would recommend continuing his antihypertensive therapies as outlined in the MRF. If the patient has episodes of low blood pressure as a result of his pneumonia, we can reduce his Coreg down to 12.5 mg p.o. twice daily. 2. Hyperlipidemia: Continue statin based medications. 3. We will sign off. Please call with any questions. Thank you very much for the opportunity to put dissipate in the cardiac care of your patient. Code Visit Inpatient E&M: 97035 Subs Hosp L2
--- NOTE | 2018-11-15 12:25 | PCM.PN.REN ---
Patient Problems: Active and Suspected Problems (Last Reviewed 10/05/18 @ 10:13 by Ling Herrera) Abnormal cardiac enzyme level (Acute) Subjective: no new complaints down to nasal cannula today - Physical Exam General: Alert, Oriented x3, Cooperative HEENT: Atraumatic, PERRLA, EOMI, Normocephalic Neck: Supple, No JVD, Negative Carotid Bruits Lungs: Clear to auscultation, Normal air movement Cardiovascular: Regular rate, No murmurs Abdomen: Bowel Sounds Present, Soft, Non Tender Extremities: No edema, Capillary Refill Less than 3 Seconds Skin: No rashes, No breakdown Musculoskeletal: No Tenderness to Palpation of Joints or Extremities Neurological: Cranial nerves II-XII grossly intact Psych/Mental Status: Normal Affect, Appropriate Vital Signs Temp Pulse Resp BP Pulse Ox 97.9 F 67 18 130/79 H 94 11/15/18 08:48 11/15/18 08:48 11/15/18 08:48 11/15/18 08:48 11/15/18 08:50 Oxygen Flow Rate (L/min) 2.5 Oxygen Delivery Method Nasal Cannula Weight: 81.5 kg Body Mass Index (BMI) 27.0 Finger Stick Blood Glucose 200 Intake and Output for Last 24 Hours 11/13/18 11/14/18 11/15/18 23:59 23:59 23:59 Intake Total 1200 / 1200 2188.4 / 2188.4 315.2 / 315.2 Output Total 3800 / 3800 50 / 50 0 / 0 Balance -2600 / -2600 2138.4 / 2138.4 315.2 / 315.2 Microbiology Past 72 Hours 11/14/18 16:05 Urine Culture - Preliminary Urine, Clean Catch Culture exhibits no growth. 11/14/18 16:05 Streptococcus pneumoniae Antigen (M - Final Urine, Clean Catch 11/14/18 16:05 Legionella Antigen - Final Urine, Clean Catch 11/13/18 13:08 Respiratory Panel (PCR) - Final Mucosa - Nose 11/13/18 13:08 Influenza Types A,B Direct FA (ESA) - Final Mucosa - Nose Laboratory Tests Past 24 Hrs 11/14/18 11/15/18 11/15/18 16:05 05:30 05:30 WBC 9.7 RBC 2.91 L Hgb 9.2 L Hct 30.1 L MCV 103.4 H MCH 31.6 MCHC 30.6 L RDW 15.2 H RDW Differential 55.6 H Plt Count 180 MPV 10.6 Sodium 131 L Potassium 5.1 Chloride 89 L Carbon Dioxide 25.0 Anion Gap 17 H BUN 65 H Creatinine 6.71 H Estim Creat Clear Calc 10.34 Est GFR (MDRD) Af Amer 11 L Est GFR (MDRD) Non-Af 9 L BUN/Creatinine Ratio 9.7 L Glucose 103 Calcium 8.8 Urine Color Yellow Urine Clarity Turbid Urine pH 5.0 Ur Specific [place] 1.020 Urine Protein 100 H Urine Glucose (UA) Normal Urine Ketones 5 H Urine Occult Blood 250 H Urine Nitrite Negative Urine Bilirubin 1 H Urine Urobilinogen 1 H Ur Leukocyte Esterase 500 H Urine RBC 0 SEEN Urine WBC >100 SEEN Ur Squamous Epith Cells 0 SEEN Urine Bacteria 0 SEEN Urine Mucus 0 SEEN Medical Necessity - Tobacco Use Smoking Status: Current every day smoker Assessment/Plan All Active Problems (Last Reviewed 10/05/18 @ 10:13 by Ling Herrera) Abnormal cardiac enzyme level (Acute) DAI (acute kidney injury) (Acute) Hypertensive emergency (Acute) Problem with dialysis access (Resolved) S/P dialysis catheter insertion (Resolved 05/22/18) History of thoracentesis (Resolved 05/22/18) Acute renal failure superimposed on chronic kidney disease (Resolved) Acute respiratory failure with hypoxia (Acute) Diastolic CHF (Acute) Leukocytosis (Resolved) ESRD. LHD today dyspnea. reviewed CXR. consistent with fluid overload and possible pneumonia. still dyspneic. standing weight today shows his weight is significantly above EDW. will try for 4-5 L today. in general is doesnt do well with fluid restriction Anemia. Hb is below goal. RITCHIE with HD will follow Thank you
[2018-11-15] MEDS: guaiFENesin 1,200 MG Tablet 1200 MG PO ×2 (14:02→22:53)
[2018-11-15] MEDS: Clopidogrel Bisulfate 75 MG Tablet PO (14:02)
[2018-11-15 15:33] LABS: M R Staph aureus DNA By PCR POSITIVE (Negative)
[2018-11-15 15:35] LABS: Probe Check PASS
--- NOTE | 2018-11-15 15:58 | NURSING ---
went over +nasal mrsa results and neg sputum with valentin roshan and pt does not need to be in isolation d/t sputum not showing up as acute infection
[2018-11-15] MEDS: Isosorbide Mononitrate 30 MG Tablet PO (18:45)
[2018-11-15] MEDS: Ciprofloxacin 400 MG/200 ML BAG 200 MG IV (18:45)
[2018-11-15] MEDS: Acetaminophen 325 MG Tablet 650 MG PO (20:50)
[2018-11-15] MEDS: Pramipexole Di-HCl 0.5 MG Tablet PO (22:53)
[2018-11-15] MEDS: Atorvastatin Calcium 80 MG Tablet PO (23:00)
[2018-11-16] VITALS (13 sets, daily range): BP systolic 120–146; BP diastolic 55; PULSE 66–84; RESP 12–20; TEMP 36.5–36.9; O2SAT 97–98
[2018-11-16] MEDS: Albuterol 2.5 MG/3 ML VIAL.NEB. INHALATION ×3 (02:00→11:26)
[2018-11-16 06:39] LABS: Hemoglobin 9.5 g/dl (13.0-16.5); Mean Corp Hgb Conc 30.6 g/gl (32-36); Mean Corpuscular Hgb 32.3 pg (27.0-32.0); Mean Corpuscular Volume 105.4 fL (80-94); Mean Platelet Vol. 10.1 fl (6.2-12.0); Platelet Count 225 K/mm3 (150-450); RBC Distribution Width CV 15.5 % (11.6-14.6); RBC Distribution Width SD 58.1 fl (35.1-43.9); Red Blood Count 2.94 M/mm3 (4.6-6.2); White Blood Count 11.7 K/mm3 (4.4-11.0)
[2018-11-16 06:49] LABS: Anion Gap 11 (5-15); BUN 28 mg/dL (7-18); BUN/Creat Ratio 6.3 RATIO (10-20); Calcium,Total 7.9 mg/dL (8.5-10.1); Chloride 94 mmol/L (98-107); Creatinine, Serum 4.45 mg/dL (0.70-1.30); EST Glomerular Filtration Rate 14 mL/min (>60); Est Glom Filt Rate - Afr Amer 17 mL/min (>60); Estimated Creatinine Clearance 15.58 ml/min; Glucose 109 mg/dL (74-106); Potassium 4.2 mmol/L (3.5-5.1); Sodium Level 132 mmol/L (136-145)
[2018-11-16 06:52] LABS: Scan Indicated on CBC? Y/N NO
[2018-11-16] MEDS: Aspirin E.C. 81 MG Tablet PO (07:49)
[2018-11-16] MEDS: Calcium Acetate 667 MG Capsule 1334 MG PO (07:49)
[2018-11-16] MEDS: predniSONE 10 MG Tablet PO (07:52)
[2018-11-16] MEDS: Tamsulosin HCl 0.4 MG Capsule 0.8 MG PO (07:52)
--- NOTE | 2018-11-16 09:13 | DCINST_ITS ---
- Discharge Diagnoses Current Active Problems: Current Active and Chronic Problems (Last Reviewed 10/05/18 @ 10:13 by Ling Herrera) Abnormal cardiac enzyme level (Acute) You will use the following diet at home:: Renal (restricted protein/sodium) Discharge Activity: May not drive while taking narcotic pain medications. Allergies/Adverse Reactions: Allergies irbesartan [From Avapro] Allergy (Severe, Verified 10/26/18 08:38) Blisters zolpidem [From Ambien] Adverse Reaction (Severe, Verified 10/26/18 08:38) made me go crazy, memory loss Medications to take at Discharge Albuterol Sulfate 2.5 mg IH Q4H PRN 11/13/18 Alprazolam [Xanax] 0.5 mg PO TID PRN 11/13/18 Amlodipine [Norvasc] 10 mg PO QHS 11/13/18 Aspirin E.C. [Ecotrin] 81 mg PO DAILY@0800 11/13/18 Carvedilol [Coreg] 25 mg PO BID 11/13/18 Clopidogrel Bisulfate [Plavix] 75 mg PO DAILY 11/13/18 Ferric Citrate [Auryxia] 210 mg PO BID 11/13/18 Isosorbide Mononitrate [Imdur] 30 mg PO DAILY 11/13/18 Lactulose 30 gm PO QODAY 11/13/18 Prednisone 10 mg PO DAILY 11/13/18 Ropinirole HCl [Requip] 1 mg PO QHS 11/13/18 Rosuvastatin Calcium [Crestor] 40 mg PO QHS 11/13/18 Tamsulosin HCl [Flomax] 0.8 mg PO DAILY 11/13/18 hydrALAZINE [Apresoline] 25 mg PO BID 11/13/18 Amoxicillin/Potassium Clav [Augmentin 500-125 Tablet] 1 each PO BID #10 tablet 11/16/18 Ciprofloxacin [Cipro] 500 mg PO DAILY #5 tablet 11/16/18 The following prescriptions were given: Amoxicillin/Potassium Clav [Augmentin 500-125 Tablet] 1 each PO BID #10 tablet Ciprofloxacin [Cipro] 500 mg PO DAILY #5 tablet Primary Care Physician: Tania Berger NP-C [Primary Care Provider] - Please follow up with your Primary Care Physician in: in 5-7 days Test Results: Test results from this visit will be discussed in further detail at your follow- up appointment, if applicable. Please Follow Up With: Caleb Alaniz MD When: for dialysis Proposed Discharge Date: 11/16/18
--- NOTE | 2018-11-16 09:15 | DS.PCM_ITS ---
Discharge Date and Diagnosis - Problem List Patient Problems: Active and Suspected Problems (Last Reviewed 10/05/18 @ 10:13 by Ling Herrera) HCAP (healthcare-associated pneumonia) (Acute) Abnormal cardiac enzyme level (Acute) Date of Admission: 11/13/18 Date of Discharge: 11/16/18 - Primary Discharge Diagnosis Active and Suspected Problems (Last Reviewed 10/05/18 @ 10:13 by Ling Herrera) HCAP (healthcare-associated pneumonia) (Acute) Abnormal cardiac enzyme level (Acute) - Secondary Discharge Diagnosis Chronic Problems (Last Reviewed 10/05/18 @ 10:13 by Ling Herrera) Chronic renal failure, stage 5 (Chronic) ESRD (end stage renal disease) (Chronic) History of non-ST elevation myocardial infarction (NSTEMI) (Chronic 01/21/11) History of left heart catheterization (Chronic 01/21/11) 10/13/[address] Barrientos @ [facility]:Per Dr. Jiménez @ [facility]: CABG recommended History of right and left heart catheterization (Chronic 05/24/18) Patent NICHOLAS to LAD, SVG to 1st OM and SVG to RCA. Elevated right heart pressures, significant Diastolic dysfunction per cath done @ [facility], Dr. Barrientos Stented coronary artery (Chronic) 2003, JASON to circumflex ; 10/13/2009 tsfer from [facility] to [facility], total of 5 bare metal stents to RCA per Dr. Barrientos @ [facility]: 3.5 X 18 Recreation Therapy Teacher, followed distally by 3.0 X12 Recreation Therapy Teacher to distal RCA;3.5 X 15 Recreation Therapy Teacher, followed proximally by 4.0 X 18 Recreation Therapy Teacher to Mid RCA; 4.0 X 18 Recreation Therapy Teacher to Proximal RCA S/P CABG x 3 (Chronic 01/26/11) [facility] per Dr. Osito Hernandez: NICHOLAS to LAD, reverse SVG to OMbranch of CX, reverse SVG to PDA of RCA. PDA endarterectomy. Status post peripheral artery angioplasty with insertion of stent (Chronic ~2010) Right common iliac, [facility] Atherosclerotic heart disease of algaaciq coronary artery without angina pectoris (Chronic) 2003, JASON to circumflex ; 10/10/2009 tsfer from [facility] to [facility], total of 5 bare metal stents to RCA; CABG X 3 vessels @ [facility] 4/ (critical left main and restenosis of RCA stents) Diastolic CHF (Chronic) HLD (hyperlipidemia) (Chronic) HTN (hypertension) (Chronic) PAD (peripheral artery disease) (Chronic) COPD (chronic obstructive pulmonary disease) (Chronic) Tobacco dependence (Chronic) Anemia (Chronic) BPH (benign prostatic hyperplasia) (Chronic) Hospital Course and Treatment Imaging Results: Clinical Impression(s) from Imaging Studies Chest X-Ray 11/13/18 10:31 IMPRESSION: COPD with lower lung edema or infiltrates. Small pleural effusions. Electronically Signed: Kamari Tucker MD at 11:22 EST , Service support , Operations: None Summary of Care Provided: Patient is a 68-year-old gentleman with multiple comorbidities including end- stage renal disease on hemodialysis Wednesdays and Fridays presented with progressive shortness of breath chest x-ray demonstrated features consistent with edema/infiltrate and assessment of acute on chronic diastolic heart failure in addition to suspected HCAP admitted to a monitored bed for further management. 1. Acute hypoxic respiratory failure secondary to combination of CHF from fluid overload (patient is a dialysis patient) as well as suspected healthcare acquired pneumonia. Patient was placed on noninvasive ventilation BiPAP admitted to a monitored bed for subsequent management. He was weaned off BiPAP once his condition improved 2. Suspected healthcare acquired pneumonia with possible gram-negative organisms. Patient was started on ciprofloxacin Zosyn as well as vancomycin pharmacy to dose. Patient was also placed on supplemental oxygen titrated to keep pulse ox greater than 92. Also did order for acute respiratory panel to rule out viral etiology ; respiratory panel and influenza as a supine negative. Did discontinue patient's vancomycin on 11/15/2018. Patient was discharged home on ciprofloxacin and Augmentin for 5 more days 3. Acute diastolic congestive heart failure: Echo on 04/08/2018 demonstrated features consistent with diastolic dysfunction with an EF of 55%; patient has been admitted to monitored bed managed with fluid restriction, strict input and output daily weights; consultation was placed to nephrology to manage patient fluid status through dialysis 4. Elevated troponin suspected to be secondary to demand ischemia from above patient denies chest pain however given patient past cardiac history of CAD with CABG and subsequent stent placement consultation was placed to cardiology patient was seen by both Dr. Barrientos in Dr. Llanes spelled optimization of medical therapy was recommended 5. CAD with previous CABG with subsequent stent placement patient is on Plavix as well as statin therapy 6. End-stage renal disease on hemodialysis on Wednesdays and Fridays; auscultation placed to Dr. 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 Hypertension-blood pressure controlled, home medications continued with dose adjustment as needed 8. Dyslipidemia-patient is on statin therapy, continued at home dose 9. COPD; nebs prn 10. Pulmonary hypertension with RSVP of 42 mmHg 11. Depression with anxiety patient is on SSRI as well as Xanax as needed 12. BPH, status post chronic Charles catheter 13. DVT prophylaxis SC Heparin Patient Problems: Active and Suspected Problems (Last Reviewed 10/05/18 @ 10:13 by Ling Herrera) HCAP (healthcare-associated pneumonia) (Acute) Abnormal cardiac enzyme level (Acute) - Physical Exam General: Alert HEENT: Atraumatic Lungs: Diminished Neurological: Neuro grossly intact Psych/Mental Status: Normal Affect Vital Signs Temp Pulse Resp BP Pulse Ox 98.4 F 78 20 H 146/55 H 97 11/16/18 07:36 11/16/18 08:26 11/16/18 08:26 11/16/18 07:36 11/16/18 07:38 Oxygen Flow Rate (L/min) 3 Oxygen Delivery Method Nasal Cannula Weight: 79.6 kg Body Mass Index (BMI) 27.0 Finger Stick Blood Glucose 200 Intake and Output for Last 24 Hours 11/14/18 11/15/18 11/16/18 23:59 23:59 23:59 Intake Total 2188.4 / 2188.4 1592.2 / 1592.2 743 / 743 Output Total 50 / 50 4500 / 4500 Balance 2138.4 / 2138.4 -2907.8 / -2907.8 743 / 743 Microbiology Past 72 Hours 11/14/18 16:05 Urine Culture - Final Urine, Clean Catch Mixed Gram Positive Organisms 11/15/18 11:10 Gram Stain - Final Sputum, Expectorated/Coughed Respiratory Culture - Final 11/13/18 10:32 Blood Culture - Preliminary Blood Culture (Wb) - Anticubital Right No growth in 48 hours. 11/14/18 16:05 Streptococcus pneumoniae Antigen (M - Final Urine, Clean Catch 11/14/18 16:05 Legionella Antigen - Final Urine, Clean Catch 11/13/18 13:08 Respiratory Panel (PCR) - Final Mucosa - Nose 11/13/18 13:08 Influenza Types A,B Direct FA (ESA) - Final Mucosa - Nose Laboratory Tests Past 24 Hrs 11/15/18 11/16/18 11/16/18 13:37 05:45 05:45 WBC 11.7 H RBC 2.94 L Hgb 9.5 L Hct 31.0 L MCV 105.4 H MCH 32.3 H MCHC 30.6 L RDW 15.5 H RDW Differential 58.1 H Plt Count 225 MPV 10.1 Sodium 132 L Potassium 4.2 Chloride 94 L Carbon Dioxide 27.0 Anion Gap 11 BUN 28 H Creatinine 4.45 H Estim Creat Clear Calc 15.58 Est GFR (MDRD) Af Amer 17 L Est GFR (MDRD) Non-Af 14 L BUN/Creatinine Ratio 6.3 L Glucose 109 H Calcium 7.9 L MRSA (PCR) POSITIVE H Discharge Diet: Renal Diet Discharge Activity: May not drive while taking narcotic pain medications. Home Medications: Medications to take at Discharge Albuterol Sulfate 2.5 mg IH Q4H PRN 11/13/18 Alprazolam [Xanax] 0.5 mg PO TID PRN 11/13/18 Amlodipine [Norvasc] 10 mg PO QHS 11/13/18 Aspirin E.C. [Ecotrin] 81 mg PO DAILY@0800 11/13/18 Carvedilol [Coreg] 25 mg PO BID 11/13/18 Clopidogrel Bisulfate [Plavix] 75 mg PO DAILY 11/13/18 Ferric Citrate [Auryxia] 210 mg PO BID 11/13/18 Isosorbide Mononitrate [Imdur] 30 mg PO DAILY 11/13/18 Lactulose 30 gm PO QODAY 11/13/18 Prednisone 10 mg PO DAILY 11/13/18 Ropinirole HCl [Requip] 1 mg PO QHS 11/13/18 Rosuvastatin Calcium [Crestor] 40 mg PO QHS 11/13/18 Tamsulosin HCl [Flomax] 0.8 mg PO DAILY 11/13/18 hydrALAZINE [Apresoline] 25 mg PO BID 11/13/18 Amoxicillin/Potassium Clav [Augmentin 500-125 Tablet] 1 each PO BID #10 tablet 11/16/18 Ciprofloxacin [Cipro] 500 mg PO DAILY #5 tablet 11/16/18 Following Prescrptions Were Given to Patient: Amoxicillin/Potassium Clav [Augmentin 500-125 Tablet] 1 each PO BID #10 tablet Ciprofloxacin [Cipro] 500 mg PO DAILY #5 tablet Primary Care Physician: Tania Berger NP-C [Primary Care Provider] - Please follow up with your Primary Care Physician in: in 5-7 days Please Follow Up With: Caleb Alaniz MD When: for dialysis Disposition: Home Minutes spent on discharge:: 40 Medical Necessity - Tobacco Use Smoking Status: Current every day smoker Tobacco Use: Cigarettes Meaningful Use Info Meaningful Use Diagnoses (Choose all that apply): CHF - CHF HEATHER/ARB ordered at discharge?: Yes Reason HEATHER/ARB not ordered?: Worsening renal disease Documented LVEF (%): 55 Code Visit Inpatient E&M: 50566 Disch Hosp
[2018-11-16] MEDS: hydrALAZINE 25 MG Tablet PO (09:38)
[2018-11-16] MEDS: guaiFENesin 1,200 MG Tablet 1200 MG PO (09:38)
[2018-11-16] MEDS: Isosorbide Mononitrate 30 MG Tablet PO (09:38)
[2018-11-16] MEDS: Clopidogrel Bisulfate 75 MG Tablet PO (09:38)
[2018-11-16] MEDS: Carvedilol 25 MG Tablet PO (09:39)
--- NOTE | 2018-11-16 09:59 | PHA.DC.MC ---
Pharmacy Service has performed discharge medication reconciliation and counseling for this patient. The patient's discharge medication list was reviewed for discrepancies and discrepancies were resolved. The patient was counseled on the following discharge medications and changes in medications for homegoing were reviewed. 1. CIPROFLOXACIN 2. AUGMENTIN The Reason for Use, instructions for use, and potential side effects were reviewed for all new medications. The patient's questions regarding all of their medications were answered. The patient was able to verbally demonstrate an understanding of their discharge medications. Home Medications Albuterol Sulfate 2.5 mg IH Q4H PRN 11/13/18 Alprazolam [Xanax] 0.5 mg PO TID PRN 11/13/18 Amlodipine [Norvasc] 10 mg PO QHS 11/13/18 Aspirin E.C. [Ecotrin] 81 mg PO DAILY@0800 11/13/18 Carvedilol [Coreg] 25 mg PO BID 11/13/18 Clopidogrel Bisulfate [Plavix] 75 mg PO DAILY 11/13/18 Ferric Citrate [Auryxia] 210 mg PO BID 11/13/18 Isosorbide Mononitrate [Imdur] 30 mg PO DAILY 11/13/18 Lactulose 30 gm PO QODAY 11/13/18 Prednisone 10 mg PO DAILY 11/13/18 Ropinirole HCl [Requip] 1 mg PO QHS 11/13/18 Rosuvastatin Calcium [Crestor] 40 mg PO QHS 11/13/18 Tamsulosin HCl [Flomax] 0.8 mg PO DAILY 11/13/18 hydrALAZINE [Apresoline] 25 mg PO BID 11/13/18 Amoxicillin/Potassium Clav [Augmentin 500-125 Tablet] 1 each PO BID #10 tablet 11/16/18 Ciprofloxacin [Cipro] 500 mg PO DAILY #5 tablet 11/16/18
--- NOTE | 2018-11-16 10:53 | CASEMGMT ---
This RN CM to room to discuss discharge plan with pt at this time. Pt declines HHC and OP therapy at this time. Pt does state that he would like to f/u with Dr. Caicedo as he would like to get a bipap set up. Pt states that he had appt scheduled in the past but had to cancel d/t hospital admission. Laly, PCU legal secretary, aware at this time, voices understanding. SStdereje ANDRADE CM
--- NOTE | 2018-11-17 14:47 | CASEMGMT ---
RAYMOND SPENCER DC Phone Call. DC DATE: 11/16/18 DC Disposition: Home LACE/STRATA: 15/ Intro role of CM to patient via phone. Pt states he does not have questions re: dc instructions, is taking antibiotics as prescribed. RAYMOND SPENCER asked re: care improvements. Pt did state the bed alarm was frustrating. PCP appointment set up for Tuesday. No further questions. Deangelo VALADEZ RN ACM
== END 2018-11-16 12:40 | disposition home or self-care (01) | DRG 193 ==
LOC: ED 12:06 → PCU 12:41
PROVIDERS: Admitting Provider Internal Medicine; Emergency Provider Emergency Medicine; Family Provider Nurse Practitioner Family; PCP Nurse Practitioner Family; Visit Provider Internal Medicine
DX: J18.9 Pneumonia, unspecified organism (principal); N18.6 End stage renal disease; I50.33 Acute on chronic diastolic (congestive) heart failure; J96.01 Acute respiratory failure with hypoxia; I13.2 Hypertensive heart and chronic kidney disease with heart failure and with stage 5 chronic kidney disease, or end stage renal disease; I24.8 Other forms of acute ischemic heart disease; J15.6 Pneumonia due to other Gram-negative bacteria; I27.20 Pulmonary hypertension, unspecified; E78.5 Hyperlipidemia, unspecified; Z99.2 Dependence on renal dialysis; F41.8 Other specified anxiety disorders; N40.0 Benign prostatic hyperplasia without lower urinary tract symptoms; I25.10 Atherosclerotic heart disease of native coronary artery without angina pectoris; Z95.1 Presence of aortocoronary bypass graft; Z79.899 Other long term (current) drug therapy; Z95.5 Presence of coronary angioplasty implant and graft; D64.9 Anemia, unspecified; I25.2 Old myocardial infarction; Y95 Nosocomial condition; F17.210 Nicotine dependence, cigarettes, uncomplicated
CPT/HCPCS: 36415; 71045; 80048; 81001; 83605; 83735; 84443; 84484; 85025; 85027; 87040; 87070; 87086; 87088; 87205; 87449; 87633; 87641; 87804; 90937; 93005; 93306; 94002; 94003; 94640; 97162; 97166; 97530; 97535; 97802; 99285; 99406; J7030; J7040; J7050; A4216; G0257; J0744

== ENCOUNTER 2018-11-26 13:41 | Inpatient (IN) | payer MEDICARE, SELFPAY ==
[2018-11-23 10:27] VITALS: BMI 27.0
[2018-11-26] VITALS (14 sets, daily range): BP systolic 136–148; BP diastolic 47–62; PULSE 78–91; RESP 12–26; TEMP 35.6–36.4; O2SAT 98–100; BMI 27.8; BMI 27.2
--- NOTE | 2018-11-26 14:30 | EKG12_ITS ---
Test Reason : SOB Blood Pressure : / mmHG Vent. Rate : 083 BPM Atrial Rate : 083 BPM P-R Int : 204 ms QRS Dur : 100 ms QT Int : 380 ms P-R-T Axes : 001 057 130 degrees QTc Int : 446 ms Normal sinus rhythm Left ventricular hypertrophy with repolarization abnormality Abnormal ECG Confirmed by VIKY MONTENEGRO, JOS ([id number]), photographic editor SHIRA HURD ([id number]) on 12/01/2018 9:04:25 AM Referred By: LEATHA Confirmed By:JOS SALMON MD
--- NOTE | 2018-11-26 14:30 | RAD_ITS ---
STUDY: X-RAY CHEST REASON FOR EXAM: Male, 68 years old. Cough and shortness of breath TECHNIQUE: AP COMPARISON: 11/13/18 FINDINGS: Right dialysis catheter is stable There is mild fluid overload but no air space disease. Trace blunting of the left costophrenic angle is stable. There is mild cardiac enlargement. Sternal wires and mediastinal surgical clips compatible with prior CABG. Normal mediastinum and justyn. There is atherosclerotic calcification of the aortic arch with tortuosity. No acute bony process. There is no demonstrated abnormality of the visualized soft tissue structures of the upper abdomen. RAD/Chest 1 View (Portable) IMPRESSION: Stable mild chronic CHF/fluid overload with trace left pleural fluid. Electronically Signed: Nabil Prater MD at 15:17 EST , Service support ,
[2018-11-26] MEDS: Albuterol 2.5 MG/3 ML VIAL.NEB. INHALATION ×4 (14:52→20:45)
[2018-11-26] MEDS: MethylPREDNISolone 125 MG/2 ML Vial IV (14:56)
[2018-11-26 15:43] LABS: Absolute Lymphocyte Count 0.81 X10^3/ul (0.83-4.51); Absolute Neutrophil Count 10.6 X10^3/uL (2.0-7.7); Basophil# 0.02 X10^3/uL; Basophil% 0.2 % (0-1); Hematocrit 27.6 % (40-54); Hemoglobin 8.5 g/dl (13.0-16.5); Lymphocyte # 0.81 X10^3/ul (4.0); Lymphocyte % 6.9 % (19-41); Mean Corp Hgb Conc 30.8 g/gl (32-36); Mean Corpuscular Hgb 31.4 pg (27.0-32.0); Mean Corpuscular Volume 101.8 fL (80-94); Mean Platelet Vol. 9.8 fl (6.2-12.0); Monocyte# 0.35 X10^3/uL; Neutrophil # 10.55 X10^3/uL (2.7-7.7); Neutrophil % 89.4 % (47-70); Platelet Count 171 K/mm3 (150-450); RBC Distribution Width CV 15.9 % (11.6-14.6); RBC Distribution Width SD 57.7 fl (35.1-43.9); Red Blood Count 2.71 M/mm3 (4.6-6.2); White Blood Count 11.8 K/mm3 (4.4-11.0)
[2018-11-26 15:45] LABS: POSITIVE COUNT NO; POSITIVE DIFFERENTIAL NO; POSITIVE MORPHOLOGY NO
--- NOTE | 2018-11-26 16:07 | ED.RN ---
LAB REPORTS POTASSIUM 6.0 AND CREATININE 8.30, DR. ZHANG AWARE.
[2018-11-26 16:10] LABS: Anion Gap 13 (5-15); BUN 83 mg/dL (7-18); Calcium,Total 8.4 mg/dL (8.5-10.1); Chloride 92 mmol/L (98-107); EST Glomerular Filtration Rate 7 mL/min (>60); Est Glom Filt Rate - Afr Amer 8 mL/min (>60); Estimated Creatinine Clearance 8.36 ml/min; Glucose 120 mg/dL (74-106); Sodium Level 129 mmol/L (136-145)
[2018-11-26] MEDS: Ciprofloxacin 400 MG/200 ML BAG 200 MG IV (17:06)
--- NOTE | 2018-11-26 17:37 | ED.VISSUMM ---
- ER Visit Summary Date of Service: 11/26/18 Chief Complaint: Short of breath History of Present Illness: The patient is a 68 M who was discharged in the hospital on November 16 with pneumonia. Patient states the amoxicillin he was on gave him rectal bleeding so it was stopped early. He did take the remainder of his Cipro. Patient still has cough, wheezing, shortness of breath. He states he had a fever a few days ago. He is bringing up clear sputum. Patient does have a history of CHF and is on dialysis. He did have a full run 2 days ago and is due for next run tomorrow. Patient does state his weight is slightly above his dry weight, but not up to the point where he typically has problems with CHF. Physical Examination: Blood pressure is 147/57, temperature 97.5, heart rate 91, respiratory rate 17, pulse ox 98% on 2 L nasal cannula. Patient sitting upright in bed. Head neck examination is unremarkable. Heart is regular rate and rhythm. He does have a right upper chest dialysis line. Lungs sounds reveal expiratory wheezes left greater than right. Abdomen is soft and nontender. Lower extremity exam reveals 3+ edema that is symmetric. Test Results: EKG is sinus 83 with no sign of acute ischemia. Portable chest x-ray shows stable mild chronic CHF/fluid overload with trace left pleural effusion. CBC was a white count 11.8 with 89% neutrophils. Hemoglobin is 8.5. Chemistry studies reveal a sodium of 129, 6.0, chloride 92. BUN is 83 and creatinine is 8.30. Troponin is 0.040. Emergency Department Course and Treatment: Patient received a DuoNeb treatment with EMS which improved his breathing. He was given a cycle of albuterol treatments here along with IV Solu-Medrol. On repeat evaluation he is requesting BiPAP. He states that usually helps push the fluid out of his lungs so he can breathe better. In light of his reported fever and elevated white count I did order dose of Cipro, Zosyn, and vancomycin which patient was treated with on last admission. I spoke with Dr. 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 I spoke with Dr. Florin Ferrara for admission. Treatment Plan: [] Disposition: Admit Impression: 1. CHF 2. Chronic renal failure This note was generated with Friend.lyation software. It may contain incorrect words, spelling, and punctuation that were not noted in review of the chart prior to signing ED Disposition - Plan for ED Patient: Disposition: Acute Care Hospital [facility]
--- NOTE | 2018-11-26 18:32 | PCM.HP.STD ---
Problem List (1) Acute respiratory insufficiency Status: Acute (2) (HFpEF) heart failure with preserved ejection fraction Status: Acute Qualifiers: Heart failure chronicity: acute Qualified Code(s): I50.31 - Acute diastolic (congestive) heart failure (3) Hyperkalemia Status: Acute History of Present Illness Date of Admission: 11/26/18 Chief Complaint: Shortness of breath and fever The patient is a 68 year old M who for the past days has been having increasing shortness of breath and had a fever of 100.7 Fahrenheit. Patient was just discharged with pneumonia on November 16. Over the past 2 days patient has been having increasing was discharged. Patient presented to the emergency room and underwent workup that showed a white count of 11.8. Chest x-ray consistent with volume overload. Patient was not registered is hypoxic but was put on BiPAP which has helped his shortness of breath. Concern was for pneumonia and so the ER physician did give the patient ciprofloxacin and was can give him Zosyn and vancomycin but instructed to hold off on those antibiotics. Patient was also noted to have a potassium was 6 but no EKG changes. He did receive albuterol in the emergency room. The patient is a dialysis patient and goes to dialysis every Tuesday. States that his last dialysis was Tuesday and he went to it as he had gone to the other sessions as well. [] Past Medical History Past Medical History (Chronic Problems): Chronic Problems (Last Updated 11/16/18 @ 09:12 by Manoj Christensen MD) Chronic renal failure, stage 5 (Chronic) ESRD (end stage renal disease) (Chronic) History of non-ST elevation myocardial infarction (NSTEMI) (Chronic 01/21/11) History of left heart catheterization (Chronic 01/21/11) 10/13/[address] Barrientos @ [facility]:Per Dr. Jiménez @ [facility]: CABG recommended History of right and left heart catheterization (Chronic 05/24/18) Patent NICHOLAS to LAD, SVG to 1st OM and SVG to RCA. Elevated right heart pressures, significant Diastolic dysfunction per cath done @ [facility], Dr. Barrientos Stented coronary artery (Chronic) 2003, JASON to circumflex ; 10/13/2009 tsfer from [facility] to [facility], total of 5 bare metal stents to RCA per Dr. Barrientos @ [facility]: 3.5 X 18 Associate Sales Manager, followed distally by 3.0 X12 Associate Sales Manager to distal RCA;3.5 X 15 Associate Sales Manager, followed proximally by 4.0 X 18 Associate Sales Manager to Mid RCA; 4.0 X 18 Associate Sales Manager to Proximal RCA S/P CABG x 3 (Chronic 01/26/11) [facility] per Dr. Osito Hernandez: NICHOLAS to LAD, reverse SVG to OMbranch of CX, reverse SVG to PDA of RCA. PDA endarterectomy. Status post peripheral artery angioplasty with insertion of stent (Chronic ~2010) Right common iliac, [facility] Atherosclerotic heart disease of [place] coronary artery without angina pectoris (Chronic) 2003, JASON to circumflex ; 10/10/2009 tsfer from [facility] to [facility], total of 5 bare metal stents to RCA; CABG X 3 vessels @ [facility] 01/31/2011 (critical left main and restenosis of RCA stents) Diastolic CHF (Chronic) HLD (hyperlipidemia) (Chronic) HTN (hypertension) (Chronic) PAD (peripheral artery disease) (Chronic) COPD (chronic obstructive pulmonary disease) (Chronic) Tobacco dependence (Chronic) Anemia (Chronic) BPH (benign prostatic hyperplasia) (Chronic) Medical History: Medical History (Last Reviewed 11/26/18 @ 18:35 by Chris Stark DO) History of non-ST elevation myocardial infarction (NSTEMI) (Chronic) Onset Date: 01/21/11 I25.2 Atherosclerotic heart disease of [place] coronary artery without angina pectoris (Chronic) I25.10 2003, JASON to circumflex ; 10/10/2009 tsfer from [facility] to [facility], total of 5 bare metal stents to RCA; CABG X 3 vessels @ [facility] 01/31/2011 (critical left main and restenosis of RCA stents) Acute renal failure superimposed on chronic kidney disease (Resolved) N17.9, N18.9 Diastolic CHF (Chronic) I50.30 HLD (hyperlipidemia) (Chronic) E78.5 HTN (hypertension) (Chronic) I10 PAD (peripheral artery disease) (Chronic) I73.9 COPD (chronic obstructive pulmonary disease) (Chronic) J44.9 Tobacco dependence (Chronic) F17.200 CKD (chronic kidney disease) (Inactive) N18.9 Leukocytosis (Resolved) D72.829 Anemia (Chronic) D64.9 BPH (benign prostatic hyperplasia) (Chronic) N40.0 Allergies irbesartan [From Avapro] Allergy (Severe, Verified 11/26/18 13:42) Blisters zolpidem [From Ambien] Adverse Reaction (Severe, Verified 11/26/18 13:42) made me go crazy, memory loss Home Medications: Ambulatory Orders Medication Instructions Recorded Albuterol Sulfate 2.5 mg IH Q4H PRN 11/13/18 Alprazolam [Xanax] 0.5 mg PO TID PRN 11/13/18 Amlodipine [Norvasc] 10 mg PO QHS 11/13/18 Aspirin E.C. [Ecotrin] 81 mg PO DAILY@0800 11/13/18 Carvedilol [Coreg] 25 mg PO BID 11/13/18 Clopidogrel Bisulfate [Plavix] 75 mg PO DAILY 11/13/18 Ferric Citrate [Auryxia] 210 mg PO BID 11/13/18 Isosorbide Mononitrate [Imdur] 30 mg PO DAILY 11/13/18 Lactulose 30 gm PO QODAY 11/13/18 Prednisone 10 mg PO DAILY 11/13/18 Ropinirole HCl [Requip] 1 mg PO QHS 11/13/18 Rosuvastatin Calcium [Crestor] 40 mg PO QHS 11/13/18 Tamsulosin HCl [Flomax] 0.8 mg PO DAILY 11/13/18 hydrALAZINE [Apresoline] 25 mg PO BID 11/13/18 Amoxicillin/Potassium Clav 1 each PO BID #10 tablet 11/16/18 [Augmentin 500-125 Tablet] Ciprofloxacin [Cipro] 500 mg PO DAILY #5 tablet 11/16/18 Surgical History: Surgical History (Last Reviewed 11/26/18 @ 18:35 by Chris Stark DO) History of left heart catheterization (Chronic) Onset Date: 01/21/11 Z98.890 10/13/[address] Barrientos @ [facility]:Per Dr. Jiménez @ [facility]: CABG recommended S/P dialysis catheter insertion (Resolved) Onset Date: 05/22/18 Z95.828, Z99.2 Right internal jugular access per Dr. Demian Lua History of right and left heart catheterization (Chronic) Onset Date: 05/24/18 Z98.890 Patent NICHOLAS to LAD, SVG to 1st OM and SVG to RCA. Elevated right heart pressures, significant Diastolic dysfunction per cath done @ [facility], Dr. Barrientos History of thoracentesis (Resolved) Onset Date: 05/22/18 Z98.890 1700 cc removed from right side Stented coronary artery (Chronic) Z95.5 2004, JASON to circumflex ; 10/13/2009 tsfer from [facility] to [facility], total of 5 bare metal stents to RCA per Dr. Barrientos @ [facility]: 3.5 X 18 Associate Sales Manager, followed distally by 3.0 X12 Associate Sales Manager to distal RCA;3.5 X 15 Associate Sales Manager, followed proximally by 4.0 X 18 Associate Sales Manager to Mid RCA; 4.0 X 18 Associate Sales Manager to Proximal RCA S/P CABG x 3 (Chronic) Onset Date: 01/26/[address] [facility] per Dr. Osito Hernandez: NICHOLAS to LAD, reverse SVG to OMbranch of CX, reverse SVG to PDA of RCA. PDA endarterectomy. history of surgically created arteriovenous fistula s/p fistulogram Onset Date: ~09/28/18 Surgical History: coronary bypass surgery, tonsillectomy Smoking Status: Current every day smoker - *Family History Maternal Family History: Family History (Last Reviewed 11/13/18 @ 12:56 by Manoj Christensen MD) Father CAD (coronary artery disease) Hypertension Kidney disease CVA (cerebral vascular accident) Other Cancer History Items: Heart Disease Paternal Family History: Family History (Last Reviewed 11/13/18 @ 12:56 by Manoj Christensen MD) Father CAD (coronary artery disease) Hypertension Kidney disease CVA (cerebral vascular accident) Other Cancer History Items: Heart Disease Review of Systems Constitutional: Reports: Chills, Fever, Malaise. Denies: Anorexia Eyes: Denies: Blurred vision, Double vision HEENT: Denies: Head Aches, Sinus Congestion, Sinus Drainage Cardiovascular: Denies: Chest Pain, Palpitations Respiratory: Reports: Cough, Shortness of Breath, Sputum production - Clear Gastrointestinal: Denies: Abdominal Pain, Constipation, Diarrhea Genitourinary: Denies: Dysuria Musculoskeletal: Denies: Joint Pain, Joint Tenderness Skin: Denies: Rash, Wounds Neurological: Denies: Numbness, Tingling, Focal weakness Psychiatric: Denies: Anxiety, Depression Hematologic/ Lymphatic: Denies: Easy Bruising, Easy Bleeding, Hx of blood clot Comment: A 10 point review of systems were negative except as mentioned in the history of present illness and the other review of systems. VTE Information - Inpt Only VTE Present on Admission: No VTE Mechan Device Prophylaxis: None VTE Pharm Prophylaxis ordered?: Yes Patient Problems: Active and Suspected Problems (Last Updated 11/16/18 @ 09:12 by Manoj Christensen MD) Acute respiratory insufficiency (Acute) (HFpEF) heart failure with preserved ejection fraction (Acute) Hyperkalemia (Acute) - Physical Exam General: Alert, Cooperative, No apparent distress, - - On BiPAP HEENT: Atraumatic, Normocephalic Oral: Moist Mucosa, No Gingival or Mucosal Lesions/ Ulcerations Neck: No Nodes, Thyroid Normal Size and Texture Lungs: Diminished, - - Coarse breath sounds bilaterally Cardiovascular: Regular rate, Regular Rhythm, Normal S1, Normal S2 Abdomen: Bowel Sounds Present, Soft, Non Tender, Non-Distended, No Hepato-splenomegaly Extremities: No Calf Tenderness Skin: No rashes, No breakdown Musculoskeletal: No Tenderness to Palpation of Joints or Extremities, No Muscle Wasting Psych/Mental Status: Normal Affect, Appropriate Vital Signs Temp Pulse Resp BP Pulse Ox 36.4 C L 82 26 H 148/62 H 100 11/26/18 13:42 11/26/18 18:19 11/26/18 18:19 11/26/18 17:06 11/26/18 18:19 Oxygen Flow Rate (L/min) 2 Oxygen Delivery Method Bi-pap Weight: 83.1 kg Body Mass Index (BMI) 27.8 Finger Stick Blood Glucose 200 Laboratory Tests Past 24 Hrs 11/26/18 11/26/18 15:05 15:05 WBC 11.8 H RBC 2.71 L Hgb 8.5 L Hct 27.6 L MCV 101.8 H MCH 31.4 MCHC 30.8 L RDW 15.9 H RDW Differential 57.7 H Plt Count 171 MPV 9.8 Immature Gran % (Auto) 0.500 Neut % (Auto) 89.4 H Lymph % (Auto) 6.9 L [place] % (Auto) 3.0 Eos % (Auto) 0.0 Baso % (Auto) 0.2 Absolute Neuts (auto) 10.6 H Absolute Lymphs (auto) 0.81 L Total Counted Not Reportable Sodium 129 L Potassium 6.0 H* Chloride 92 L Carbon Dioxide 24.0 Anion Gap 13 BUN 83 H Creatinine 8.30 H* Estim Creat Clear Calc 8.36 Est GFR (MDRD) Af Amer 8 L Est GFR (MDRD) Non-Af 7 L BUN/Creatinine Ratio 10.0 Glucose 120 H Calcium 8.4 L Troponin I 0.040 Chest x-ray reviewed and showed bilateral pulmonary edema Assessment/Plan All Active Problems (Last Updated 11/16/18 @ 09:12 by Manoj Christensen MD) Acute respiratory insufficiency (Acute) (HFpEF) heart failure with preserved ejection fraction (Acute) Hyperkalemia (Acute) HCAP (healthcare-associated pneumonia) (Acute) Abnormal cardiac enzyme level (Acute) DAI (acute kidney injury) (Resolved) Hypertensive emergency (Resolved) Problem with dialysis access (Resolved) S/P dialysis catheter insertion (Resolved 05/22/18) History of thoracentesis (Resolved 05/22/18) Acute renal failure superimposed on chronic kidney disease (Resolved) Acute respiratory failure with hypoxia (Acute) Leukocytosis (Resolved) 1. Acute heart failure with preserved ejection fraction Ejection fraction of 60% from echocardiogram from 11/14/2018 Suspect related with volume overload and patient will require dialysis to further augment his volume status Consult nephrology 2. Hyperkalemia Not hemolyzed No EKG changes Patient will receive a one-time dose of Kayexalate And nephrology for dialysis. 3. Respiratory insufficiency Not hypoxic On BiPAP Respiratory to further assist with weaning BiPAP Albuterol I do not appreciate any infiltrate on chest x-ray. Therefore, I will not continue antibiotics at this time. Patient had completed his antibiotics from the last admission. We will check a respiratory panel 4. End-stage renal disease Nephrology for dialysis 5. DVT prophylaxis with subcu heparin Code Visit Inpatient E&M: 30215 Init Hosp L2
--- NOTE | 2018-11-26 18:36 | HP.PCM_ITS ---
Problem List (1) Acute respiratory insufficiency Status: Acute (2) (HFpEF) heart failure with preserved ejection fraction Status: Acute Qualifiers: Heart failure chronicity: acute Qualified Code(s): I50.31 - Acute diastolic (congestive) heart failure (3) Hyperkalemia Status: Acute History of Present Illness Date of Admission: 11/26/18 Chief Complaint: Shortness of breath and fever The patient is a 68 year old M who for the past days has been having increasing shortness of breath and had a fever of 100.7 Fahrenheit. Patient was just discharged with pneumonia on November 16. Over the past 2 days patient has been having increasing was discharged. Patient presented to the emergency room and underwent workup that showed a white count of 11.8. Chest x-ray consistent with volume overload. Patient was not registered is hypoxic but was put on BiPAP which has helped his shortness of breath. Concern was for pneumonia and so the ER physician did give the patient ciprofloxacin and was can give him Zosyn and vancomycin but instructed to hold off on those antibiotics. Patient was also noted to have a potassium was 6 but no EKG changes. He did receive albuterol in the emergency room. The patient is a dialysis patient and goes to dialysis every Tuesday. States that his last dialysis was Tuesday and he went to it as he had gone to the other sessions as well. [] Past Medical History Past Medical History (Chronic Problems): Chronic Problems (Last Updated 11/16/18 @ 09:12 by Manoj Christensen MD) Chronic renal failure, stage 5 (Chronic) ESRD (end stage renal disease) (Chronic) History of non-ST elevation myocardial infarction (NSTEMI) (Chronic 01/21/11) History of left heart catheterization (Chronic 01/21/11) 10/13/[address] Barrientos @ [facility]:Per Dr. Jiménez @ [facility]: CABG recommended History of right and left heart catheterization (Chronic 05/24/18) Patent NICHOLAS to LAD, SVG to 1st OM and SVG to RCA. Elevated right heart pressures, significant Diastolic dysfunction per cath done @ [facility], Dr. Barrientos Stented coronary artery (Chronic) 2003, JASON to circumflex ; 10/13/2009 tsfer from [facility] to [facility], total of 5 bare metal stents to RCA per Dr. Barrientos @ [facility]: 3.5 X 18 Labeling Machine Operator, followed distally by 3.0 X12 Labeling Machine Operator to distal RCA;3.5 X 15 Labeling Machine Operator, followed proximally by 4.0 X 18 Labeling Machine Operator to Mid RCA; 4.0 X 18 Labeling Machine Operator to Proximal RCA S/P CABG x 3 (Chronic 01/26/11) [facility] per Dr. Osito Hernandez: NICHOLAS to LAD, reverse SVG to OMbranch of CX, reverse SVG to PDA of RCA. PDA endarterectomy. Status post peripheral artery angioplasty with insertion of stent (Chronic ~2010) Right common iliac, [facility] Atherosclerotic heart disease of [place] coronary artery without angina pectoris (Chronic) 2003, JASON to circumflex ; 10/10/2009 tsfer from [facility] to [facility], total of 5 bare metal stents to RCA; CABG X 3 vessels @ [facility] 01/31/2011 (critical left main and restenosis of RCA stents) Diastolic CHF (Chronic) HLD (hyperlipidemia) (Chronic) HTN (hypertension) (Chronic) PAD (peripheral artery disease) (Chronic) COPD (chronic obstructive pulmonary disease) (Chronic) Tobacco dependence (Chronic) Anemia (Chronic) BPH (benign prostatic hyperplasia) (Chronic) Medical History: Medical History (Last Reviewed 11/26/18 @ 18:35 by Chris Stark DO) History of non-ST elevation myocardial infarction (NSTEMI) (Chronic) Onset Date: 01/21/11 I25.2 Atherosclerotic heart disease of [place] coronary artery without angina pectoris (Chronic) I25.10 2003, JASON to circumflex ; 10/10/2009 tsfer from [facility] to [facility], total of 5 bare metal stents to RCA; CABG X 3 vessels @ [facility] 01/31/2011 (critical left main and restenosis of RCA stents) Acute renal failure superimposed on chronic kidney disease (Resolved) N17.9, N18.9 Diastolic CHF (Chronic) I50.30 HLD (hyperlipidemia) (Chronic) E78.5 HTN (hypertension) (Chronic) I10 PAD (peripheral artery disease) (Chronic) I73.9 COPD (chronic obstructive pulmonary disease) (Chronic) J44.9 Tobacco dependence (Chronic) F17.200 CKD (chronic kidney disease) (Inactive) N18.9 Leukocytosis (Resolved) D72.829 Anemia (Chronic) D64.9 BPH (benign prostatic hyperplasia) (Chronic) N40.0 Allergies irbesartan [From Avapro] Allergy (Severe, Verified 11/26/18 13:42) Blisters zolpidem [From Ambien] Adverse Reaction (Severe, Verified 11/26/18 13:42) made me go crazy, memory loss Home Medications: Ambulatory Orders Medication Instructions Recorded Albuterol Sulfate 2.5 mg IH Q4H PRN 11/13/18 Alprazolam [Xanax] 0.5 mg PO TID PRN 11/13/18 Amlodipine [Norvasc] 10 mg PO QHS 11/13/18 Aspirin E.C. [Ecotrin] 81 mg PO DAILY@0800 11/13/18 Carvedilol [Coreg] 25 mg PO BID 11/13/18 Clopidogrel Bisulfate [Plavix] 75 mg PO DAILY 11/13/18 Ferric Citrate [Auryxia] 210 mg PO BID 11/13/18 Isosorbide Mononitrate [Imdur] 30 mg PO DAILY 11/13/18 Lactulose 30 gm PO QODAY 11/13/18 Prednisone 10 mg PO DAILY 11/13/18 Ropinirole HCl [Requip] 1 mg PO QHS 11/13/18 Rosuvastatin Calcium [Crestor] 40 mg PO QHS 11/13/18 Tamsulosin HCl [Flomax] 0.8 mg PO DAILY 11/13/18 hydrALAZINE [Apresoline] 25 mg PO BID 11/13/18 Amoxicillin/Potassium Clav 1 each PO BID #10 tablet 11/16/18 [Augmentin 500-125 Tablet] Ciprofloxacin [Cipro] 500 mg PO DAILY #5 tablet 11/16/18 Surgical History: Surgical History (Last Reviewed 11/26/18 @ 18:35 by Chris Stark DO) History of left heart catheterization (Chronic) Onset Date: 01/21/11 Z98.890 10/13/[address] Barrientos @ [facility]:Per Dr. Jiménez @ [facility]: CABG recommended S/P dialysis catheter insertion (Resolved) Onset Date: 05/22/18 Z95.828, Z99.2 Right internal jugular access per Dr. Demian Lua History of right and left heart catheterization (Chronic) Onset Date: 05/24/18 Z98.890 Patent NICHOLAS to LAD, SVG to 1st OM and SVG to RCA. Elevated right heart pressures, significant Diastolic dysfunction per cath done @ [facility], Dr. Barrientos History of thoracentesis (Resolved) Onset Date: 05/22/18 Z98.890 1700 cc removed from right side Stented coronary artery (Chronic) Z95.5 2004, JASON to circumflex ; 10/13/2009 tsfer from [facility] to [facility], total of 5 bare metal stents to RCA per Dr. Barrientos @ [facility]: 3.5 X 18 Labeling Machine Operator, followed distally by 3.0 X12 Labeling Machine Operator to distal RCA;3.5 X 15 Labeling Machine Operator, followed proximally by 4.0 X 18 Labeling Machine Operator to Mid RCA; 4.0 X 18 Labeling Machine Operator to Proximal RCA S/P CABG x 3 (Chronic) Onset Date: 01/26/11 Z95.1 [facility] per Dr. Osito Hernandez: NICHOLAS to LAD, reverse SVG to OMbranch of CX, reverse SVG to PDA of RCA. PDA endarterectomy. history of surgically created arteriovenous fistula s/p fistulogram Onset Date: ~09/28/18 Surgical History: coronary bypass surgery, tonsillectomy Smoking Status: Current every day smoker - *Family History Maternal Family History: Family History (Last Reviewed 11/13/18 @ 12:56 by Manoj Christensen MD) Father CAD (coronary artery disease) Hypertension Kidney disease CVA (cerebral vascular accident) Other Cancer History Items: Heart Disease Paternal Family History: Family History (Last Reviewed 11/13/18 @ 12:56 by Manoj Christensen MD) Father CAD (coronary artery disease) Hypertension Kidney disease CVA (cerebral vascular accident) Other Cancer History Items: Heart Disease Review of Systems Constitutional: Reports: Chills, Fever, Malaise. Denies: Anorexia Eyes: Denies: Blurred vision, Double vision HEENT: Denies: Head Aches, Sinus Congestion, Sinus Drainage Cardiovascular: Denies: Chest Pain, Palpitations Respiratory: Reports: Cough, Shortness of Breath, Sputum production - Clear Gastrointestinal: Denies: Abdominal Pain, Constipation, Diarrhea Genitourinary: Denies: Dysuria Musculoskeletal: Denies: Joint Pain, Joint Tenderness Skin: Denies: Rash, Wounds Neurological: Denies: Numbness, Tingling, Focal weakness Psychiatric: Denies: Anxiety, Depression Hematologic/ Lymphatic: Denies: Easy Bruising, Easy Bleeding, Hx of blood clot Comment: A 10 point review of systems were negative except as mentioned in the history of present illness and the other review of systems. VTE Information - Inpt Only VTE Present on Admission: No VTE Mechan Device Prophylaxis: None VTE Pharm Prophylaxis ordered?: Yes Patient Problems: Active and Suspected Problems (Last Updated 11/16/18 @ 09:12 by Manoj Christensen MD) Acute respiratory insufficiency (Acute) (HFpEF) heart failure with preserved ejection fraction (Acute) Hyperkalemia (Acute) - Physical Exam General: Alert, Cooperative, No apparent distress, - - On BiPAP HEENT: Atraumatic, Normocephalic Oral: Moist Mucosa, No Gingival or Mucosal Lesions/ Ulcerations Neck: No Nodes, Thyroid Normal Size and Texture Lungs: Diminished, - - Coarse breath sounds bilaterally Cardiovascular: Regular rate, Regular Rhythm, Normal S1, Normal S2 Abdomen: Bowel Sounds Present, Soft, Non Tender, Non-Distended, No Hepato- splenomegaly Extremities: No Calf Tenderness Skin: No rashes, No breakdown Musculoskeletal: No Tenderness to Palpation of Joints or Extremities, No Muscle Wasting Psych/Mental Status: Normal Affect, Appropriate Vital Signs Temp Pulse Resp BP Pulse Ox 36.4 C L 82 26 H 148/62 H 100 11/26/18 13:42 11/26/18 18:19 11/26/18 18:19 11/26/18 17:06 11/26/18 18:19 Oxygen Flow Rate (L/min) 2 Oxygen Delivery Method Bi-pap Weight: 83.1 kg Body Mass Index (BMI) 27.8 Finger Stick Blood Glucose 200 Laboratory Tests Past 24 Hrs 11/26/18 11/26/18 15:05 15:05 WBC 11.8 H RBC 2.71 L Hgb 8.5 L Hct 27.6 L MCV 101.8 H MCH 31.4 MCHC 30.8 L RDW 15.9 H RDW Differential 57.7 H Plt Count 171 MPV 9.8 Immature Gran % (Auto) 0.500 Neut % (Auto) 89.4 H Lymph % (Auto) 6.9 L Ritchie % (Auto) 3.0 Eos % (Auto) 0.0 Baso % (Auto) 0.2 Absolute Neuts (auto) 10.6 H Absolute Lymphs (auto) 0.81 L Total Counted Not Reportable Sodium 129 L Potassium 6.0 H* Chloride 92 L Carbon Dioxide 24.0 Anion Gap 13 BUN 83 H Creatinine 8.30 H* Estim Creat Clear Calc 8.36 Est GFR (MDRD) Af Amer 8 L Est GFR (MDRD) Non-Af 7 L BUN/Creatinine Ratio 10.0 Glucose 120 H Calcium 8.4 L Troponin I 0.040 Chest x-ray reviewed and showed bilateral pulmonary edema Assessment/Plan All Active Problems (Last Updated 11/16/18 @ 09:12 by Manoj Christensen MD) Acute respiratory insufficiency (Acute) (HFpEF) heart failure with preserved ejection fraction (Acute) Hyperkalemia (Acute) HCAP (healthcare-associated pneumonia) (Acute) Abnormal cardiac enzyme level (Acute) DAI (acute kidney injury) (Resolved) Hypertensive emergency (Resolved) Problem with dialysis access (Resolved) S/P dialysis catheter insertion (Resolved 05/22/18) History of thoracentesis (Resolved 05/22/18) Acute renal failure superimposed on chronic kidney disease (Resolved) Acute respiratory failure with hypoxia (Acute) Leukocytosis (Resolved) 1. Acute heart failure with preserved ejection fraction Ejection fraction of 60% from echocardiogram from 11/14/2018 Suspect related with volume overload and patient will require dialysis to further augment his volume status Consult nephrology 2. Hyperkalemia Not hemolyzed No EKG changes Patient will receive a one-time dose of Kayexalate And nephrology for dialysis. 3. Respiratory insufficiency Not hypoxic On BiPAP Respiratory to further assist with weaning BiPAP Albuterol I do not appreciate any infiltrate on chest x-ray. Therefore, I will not continue antibiotics at this time. Patient had completed his antibiotics from the last admission. We will check a respiratory panel 4. End-stage renal disease Nephrology for dialysis 5. DVT prophylaxis with subcu heparin Code Visit Inpatient E&M: [id number] Init Hosp L2
--- NOTE | 2018-11-26 19:25 | NURSING ---
This nurse put on fall risk bracelet on pt and pt said he wanted to refused having the bed exit alarm on. I promise I won't get up on my own if you don't put that alarm on my bed on. Informed Ernestina ANDRADE on nights. Bed exit is currently off since pt refused.
[2018-11-26] MEDS: Sodium Polystyrene Sulfonate 15 GM/60 ML UDC PO (20:49)
[2018-11-26] MEDS: hydrALAZINE 25 MG Tablet PO (20:51)
[2018-11-26] MEDS: Atorvastatin Calcium 80 MG Tablet PO (20:51)
[2018-11-26] MEDS: Carvedilol 25 MG Tablet PO (20:51)
[2018-11-26] MEDS: amLODIPine 10 MG Tablet PO (20:51)
[2018-11-26] MEDS: Pramipexole Di-HCl 0.5 MG Tablet PO (20:51)
[2018-11-26] MEDS: ALPRAZolam 0.5 MG Tablet PO (20:56)
--- NOTE | 2018-11-26 20:59 | NURSING ---
Pt requesting to have meds early to put on bipap.
--- NOTE | 2018-11-26 23:38 | PCM.CONS.R ---
Consultation - Renal 11/26/18 PCP/ Referring MD: Requesting physician: Dr. Stark Primary care physician: SEUN Poe Reason for Consultation:: ESRD - History of Present Illness History of Present Illness: The patient is a 68 year old M with history of ESRD. The pt dialyzes at [facility] on Mondays, Wednesdays and Fridays schedule, The pt was just discharged from this hospital where he was admitted for pneumonia on November 16. The pt returns with dyspnea. He did go to dialysis on 11/24/18 as per his usual schedule. The pt denies chest pain. There is no nausea or vomiting. He does have edema of the LE. Although he was not hypoxic in the ED, he was placed on NIV. the pt does feel better on BiPAP. - Allergies Allergies: Allergies irbesartan [From Avapro] Allergy (Severe, Verified 11/26/18 18:46) Blisters zolpidem [From Ambien] Adverse Reaction (Severe, Verified 11/26/18 18:46) made me go crazy, memory loss - Current Medications Current Medications: Current Medications Acetaminophen (Tylenol) 650 mg PO Q6H PRN PRN PRN Reason: Mild Pain (1-3)/Temp > 100.7 F Albuterol Sulfate (Ventolin Aerosols) 2.5 mg INHALATION Q4H PRN PRN PRN Reason: SOB/WHEEZE Last Admin: 11/26/18 20:45 Dose: 2.5 mg Alprazolam (Xanax) 0.5 mg PO TID PRN PRN PRN Reason: ANXIETY Last Admin: 11/26/18 20:56 Dose: 0.5 mg Amlodipine Besylate (Norvasc) 10 mg PO QHS [facility] Last Admin: 11/26/18 20:51 Dose: 10 mg Aspirin (Ecotrin) 81 mg PO DAILY@0800 [facility] Atorvastatin Calcium (Lipitor) 80 mg PO QHS [facility] Last Admin: 11/26/18 20:51 Dose: 80 mg Carvedilol (Coreg) 25 mg PO BID [facility] Last Admin: 11/26/18 20:51 Dose: 25 mg Clopidogrel Bisulfate (Plavix) 75 mg PO DAILY [facility] Heparin Sodium (Porcine) (Heparin Na) 5,000 unit SC Q12 [facility] Last Admin: 11/26/18 20:51 Dose: Not Given Hydralazine HCl (Apresoline) 25 mg PO BID [facility] Last Admin: 11/26/18 20:51 Dose: 25 mg Isosorbide Mononitrate (Imdur) 30 mg PO DAILY [facility] Magnesium Hydroxide (Milk Of Magnesia) 30 ml PO DAILY PRN PRN Reason: Constipation Non-Formulary Medication (Lactulose [Lactulose]) 30 gm PO QODAY [facility] Non-Formulary Medication (Ferric Citrate [Auryxia]) 210 mg PO BID [facility] Nutritional Formula (Lactose Free) (Ensure Enlive) 120 ml PO 4X/DAY [facility] Last Admin: 11/26/18 20:52 Dose: Not Given Oxycodone HCl (Oxyir) 5 mg PO Q4H PRN PRN PRN Reason: MOD-SEVERE PAIN (-07/26) Pramipexole Dihydrochloride (Mirapex) 0.5 mg PO QHS [facility] Last Admin: 11/26/18 20:51 Dose: 0.5 mg Prednisone () 10 mg PO DAILYCM [facility] Tamsulosin HCl (Flomax) 0.8 mg PO DAILY JAIME - Past Medical History Past Medical History (Chronic Problems): Chronic Problems (Last Reviewed 11/26/18 @ 18:35 by Chris Stark DO) Chronic renal failure, stage 5 (Chronic) ESRD (end stage renal disease) (Chronic) History of non-ST elevation myocardial infarction (NSTEMI) (Chronic 01/21/11) History of left heart catheterization (Chronic 01/21/11) 10/13/[address] Barrientos @ [facility]:Per Dr. Jiménez @ [facility]: CABG recommended History of right and left heart catheterization (Chronic 05/24/18) Patent NICHOLAS to LAD, SVG to 1st OM and SVG to RCA. Elevated right heart pressures, significant Diastolic dysfunction per cath done @ [facility], Dr. Barrientos Stented coronary artery (Chronic) 2003, JASON to circumflex ; 10/13/2009 tsfer from [facility] to [facility], total of 5 bare metal stents to RCA per Dr. Barrientos @ [facility]: 3.[address], followed distally by 3.[address] to distal RCA;3.[address], followed proximally by 4.[address] to Mid RCA; 4.[address] to Proximal RCA S/P CABG x 3 (Chronic 01/26/11) [facility] per Dr. Osito Hernandez: NICHOLAS to LAD, reverse SVG to OMbranch of CX, reverse SVG to PDA of RCA. PDA endarterectomy. Status post peripheral artery angioplasty with insertion of stent (Chronic ~2010) Right common iliac, [facility] Atherosclerotic heart disease of [place] coronary artery without angina pectoris (Chronic) 2003, JASON to circumflex ; 10/10/2009 tsfer from [facility] to [facility], total of 5 bare metal stents to RCA; CABG X 3 vessels @ [facility] 01/31/2011 (critical left main and restenosis of RCA stents) Diastolic CHF (Chronic) HLD (hyperlipidemia) (Chronic) HTN (hypertension) (Chronic) PAD (peripheral artery disease) (Chronic) COPD (chronic obstructive pulmonary disease) (Chronic) Tobacco dependence (Chronic) Anemia (Chronic) BPH (benign prostatic hyperplasia) (Chronic) - Past Surgical History Surgical History: coronary bypass surgery, tonsillectomy - Social History Smoking Status: Current every day smoker - Family History Maternal Family History: Family History (Last Reviewed 11/13/18 @ 12:56 by Manoj Christensen MD) Father CAD (coronary artery disease) Hypertension Kidney disease CVA (cerebral vascular accident) Other Cancer History Items: Heart Disease Paternal Family History: Family History (Last Reviewed 11/13/18 @ 12:56 by Manoj Christensen MD) Father CAD (coronary artery disease) Hypertension Kidney disease CVA (cerebral vascular accident) Other Cancer History Items: Heart Disease Review of Systems Constitutional: Denies: Chills, Fever, Weight Change Eyes: Denies: Blurred vision, Pain, Redness HEENT: Denies: Head Aches, Sinus Congestion, Sinus Drainage Cardiovascular: Reports: Edema. Denies: Chest Pain, Palpitations Respiratory: Reports: Shortness of Breath, Shortness of breath upon exertion, Wheezing Gastrointestinal: Denies: Abdominal Pain, Nausea, Vomiting Genitourinary: Denies: Dysuria, Frequency, Urgency Musculoskeletal: Denies: Joint Pain, Joint Tenderness Skin: Denies: Rash, Wounds Neurological: Denies: Numbness, Tingling, Focal weakness Psychiatric: Denies: Anxiety, Depression, Homicidal Ideations, Suicidal Ideations Patient Problems: Active and Suspected Problems (Last Reviewed 11/26/18 @ 18:35 by Chris Stark DO) Acute respiratory insufficiency (Acute) (HFpEF) heart failure with preserved ejection fraction (Acute) Hyperkalemia (Acute) - Physical Exam General: Alert, Oriented x3, Cooperative HEENT: Atraumatic, PERRLA, EOMI, Normocephalic Neck: Supple Lungs: No rales, Diminished, Wheezes Cardiovascular: Normal S1, Normal S2, No murmurs Abdomen: Bowel Sounds Present, Soft, Non Tender Extremities: No cyanosis, Edema Skin: No rashes, No breakdown Musculoskeletal: No Tenderness to Palpation of Joints or Extremities Neurological: Cranial nerves II-XII grossly intact Psych/Mental Status: Normal Affect Vital Signs Temp Pulse Resp BP Pulse Ox 97.6 F L 78 24 H 148/52 H 100 11/26/18 20:46 11/26/18 22:57 11/26/18 22:20 11/26/18 20:51 11/26/18 20:46 Oxygen Flow Rate (L/min) 3 Oxygen Delivery Method Nasal Cannula Weight: 81.5 kg Body Mass Index (BMI) 27.2 Finger Stick Blood Glucose 200 Laboratory Tests Past 24 Hrs 11/26/18 11/26/18 15:05 15:05 WBC 11.8 H RBC 2.71 L Hgb 8.5 L Hct 27.6 L MCV 101.8 H MCH 31.4 MCHC 30.8 L RDW 15.9 H RDW Differential 57.7 H Plt Count 171 MPV 9.8 Immature Gran % (Auto) 0.500 Neut % (Auto) 89.4 H Lymph % (Auto) 6.9 L Lyon % (Auto) 3.0 Eos % (Auto) 0.0 Baso % (Auto) 0.2 Absolute Neuts (auto) 10.6 H Absolute Lymphs (auto) 0.81 L Total Counted Not Reportable Sodium 129 L Potassium 6.0 H* Chloride 92 L Carbon Dioxide 24.0 Anion Gap 13 BUN 83 H Creatinine 8.30 H* Estim Creat Clear Calc 8.36 Est GFR (MDRD) Af Amer 8 L Est GFR (MDRD) Non-Af 7 L BUN/Creatinine Ratio 10.0 Glucose 120 H Calcium 8.4 L Troponin I 0.040 Assessment/Plan All Active Problems (Last Reviewed 11/26/18 @ 18:35 by Chris Stark DO) Acute respiratory insufficiency (Acute) (HFpEF) heart failure with preserved ejection fraction (Acute) Hyperkalemia (Acute) HCAP (healthcare-associated pneumonia) (Acute) Abnormal cardiac enzyme level (Acute) DAI (acute kidney injury) (Resolved) Hypertensive emergency (Resolved) Problem with dialysis access (Resolved) S/P dialysis catheter insertion (Resolved 05/22/18) History of thoracentesis (Resolved 05/22/18) Acute renal failure superimposed on chronic kidney disease (Resolved) Acute respiratory failure with hypoxia (Acute) Leukocytosis (Resolved) 1. ESRD. HD on [facility] as outpatient. Will arrange for dialysis early tomorrow on his usual day. 2. Hyperkalemia. K is 6.0. Give one dose of Kayexalate. Use 2K dialysate. 3. Hyponatremia. Likely due to ESRD. Na 129-asymptomatic. Should stabilize with HD. 4. HTN. BP is acceptable. Continue BP medications. 5. Acute hypoxic respiratory failure. On BiPAP. Will UF with HD tomorrow.
--- NOTE | 2018-11-26 23:46 | CON.PCM_ITS ---
Consultation - Renal 11/26/18 PCP/ Referring MD: Requesting physician: Dr. Stark Primary care physician: SEUN Poe Reason for Consultation:: ESRD - History of Present Illness History of Present Illness: The patient is a 68 year old M with history of ESRD. The pt dialyzes at [facility] on Mondays, Wednesdays and Fridays schedule, The pt was just discharged from this hospital where he was admitted for pneumonia on November 16. The pt returns with dyspnea. He did go to dialysis on 11/24/18 as per his usual schedule. The pt denies chest pain. There is no nausea or vomiting. He does have edema of the LE. Although he was not hypoxic in the ED, he was placed on NIV. the pt does feel better on BiPAP. - Allergies Allergies: Allergies irbesartan [From Avapro] Allergy (Severe, Verified 11/26/18 18:46) Blisters zolpidem [From Ambien] Adverse Reaction (Severe, Verified 11/26/18 18:46) made me go crazy, memory loss - Current Medications Current Medications: Current Medications Acetaminophen (Tylenol) 650 mg PO Q6H PRN PRN PRN Reason: Mild Pain (1-3)/Temp > 100.7 F Albuterol Sulfate (Ventolin Aerosols) 2.5 mg INHALATION Q4H PRN PRN PRN Reason: SOB/WHEEZE Last Admin: 11/26/18 20:45 Dose: 2.5 mg Alprazolam (Xanax) 0.5 mg PO TID PRN PRN PRN Reason: ANXIETY Last Admin: 11/26/18 20:56 Dose: 0.5 mg Amlodipine Besylate (Norvasc) 10 mg PO QHS [facility] Last Admin: 11/26/18 20:51 Dose: 10 mg Aspirin (Ecotrin) 81 mg PO DAILY@0800 [facility] Atorvastatin Calcium (Lipitor) 80 mg PO QHS [facility] Last Admin: 11/26/18 20:51 Dose: 80 mg Carvedilol (Coreg) 25 mg PO BID [facility] Last Admin: 11/26/18 20:51 Dose: 25 mg Clopidogrel Bisulfate (Plavix) 75 mg PO DAILY [facility] Heparin Sodium (Porcine) (Heparin Na) 5,000 unit SC Q12 [facility] Last Admin: 11/26/18 20:51 Dose: Not Given Hydralazine HCl (Apresoline) 25 mg PO BID [facility] Last Admin: 11/26/18 20:51 Dose: 25 mg Isosorbide Mononitrate (Imdur) 30 mg PO DAILY [facility] Magnesium Hydroxide (Milk Of Magnesia) 30 ml PO DAILY PRN PRN Reason: Constipation Non-Formulary Medication (Lactulose [Lactulose]) 30 gm PO QODAY [facility] Non-Formulary Medication (Ferric Citrate [Auryxia]) 210 mg PO BID [facility] Nutritional Formula (Lactose Free) (Ensure Enlive) 120 ml PO 4X/DAY [facility] Last Admin: 11/26/18 20:52 Dose: Not Given Oxycodone HCl (Oxyir) 5 mg PO Q4H PRN PRN PRN Reason: MOD-SEVERE PAIN (-07/26) Pramipexole Dihydrochloride (Mirapex) 0.5 mg PO QHS [facility] Last Admin: 11/26/18 20:51 Dose: 0.5 mg Prednisone () 10 mg PO DAILYCM [facility] Tamsulosin HCl (Flomax) 0.8 mg PO DAILY JAIME - Past Medical History Past Medical History (Chronic Problems): Chronic Problems (Last Reviewed 11/26/18 @ 18:35 by Chris Stark DO) Chronic renal failure, stage 5 (Chronic) ESRD (end stage renal disease) (Chronic) History of non-ST elevation myocardial infarction (NSTEMI) (Chronic 01/21/11) History of left heart catheterization (Chronic 01/21/11) 10/13/[address] Barrientos @ [facility]:Per Dr. Jiménez @ [facility]: CABG recommended History of right and left heart catheterization (Chronic 05/24/18) Patent NICHOLAS to LAD, SVG to 1st OM and SVG to RCA. Elevated right heart pressures, significant Diastolic dysfunction per cath done @ [facility], Dr. Barrientos Stented coronary artery (Chronic) 2003, JASON to circumflex ; 10/13/2009 tsfer from [facility] to [facility], total of 5 bare metal stents to RCA per Dr. Barrientos @ [facility]: 3.5 X 18 Quantitative Analyst Developer, followed distally by 3.0 X12 Quantitative Analyst Developer to distal RCA;3.5 X 15 Quantitative Analyst Developer, followed proximally by 4.0 X 18 Quantitative Analyst Developer to Mid RCA; 4.0 X 18 Quantitative Analyst Developer to Proximal RCA S/P CABG x 3 (Chronic 01/26/11) [facility] per Dr. Osito Hernandez: NICHOLAS to LAD, reverse SVG to OMbranch of CX, reverse SVG to PDA of RCA. PDA endarterectomy. Status post peripheral artery angioplasty with insertion of stent (Chronic ~2010) Right common iliac, [facility] Atherosclerotic heart disease of [place] coronary artery without angina pectoris (Chronic) 2003, JASON to circumflex ; 10/10/2009 tsfer from [facility] to [facility], total of 5 bare metal stents to RCA; CABG X 3 vessels @ [facility] 01/31/2011 (critical left main and restenosis of RCA stents) Diastolic CHF (Chronic) HLD (hyperlipidemia) (Chronic) HTN (hypertension) (Chronic) PAD (peripheral artery disease) (Chronic) COPD (chronic obstructive pulmonary disease) (Chronic) Tobacco dependence (Chronic) Anemia (Chronic) BPH (benign prostatic hyperplasia) (Chronic) - Past Surgical History Surgical History: coronary bypass surgery, tonsillectomy - Social History Smoking Status: Current every day smoker - Family History Maternal Family History: Family History (Last Reviewed 11/13/18 @ 12:56 by Manoj Christensen MD) Father CAD (coronary artery disease) Hypertension Kidney disease CVA (cerebral vascular accident) Other Cancer History Items: Heart Disease Paternal Family History: Family History (Last Reviewed 11/13/18 @ 12:56 by Manoj Christensen MD) Father CAD (coronary artery disease) Hypertension Kidney disease CVA (cerebral vascular accident) Other Cancer History Items: Heart Disease Review of Systems Constitutional: Denies: Chills, Fever, Weight Change Eyes: Denies: Blurred vision, Pain, Redness HEENT: Denies: Head Aches, Sinus Congestion, Sinus Drainage Cardiovascular: Reports: Edema. Denies: Chest Pain, Palpitations Respiratory: Reports: Shortness of Breath, Shortness of breath upon exertion, Wheezing Gastrointestinal: Denies: Abdominal Pain, Nausea, Vomiting Genitourinary: Denies: Dysuria, Frequency, Urgency Musculoskeletal: Denies: Joint Pain, Joint Tenderness Skin: Denies: Rash, Wounds Neurological: Denies: Numbness, Tingling, Focal weakness Psychiatric: Denies: Anxiety, Depression, Homicidal Ideations, Suicidal Ideations Patient Problems: Active and Suspected Problems (Last Reviewed 11/26/18 @ 18:35 by Chris Stark DO) Acute respiratory insufficiency (Acute) (HFpEF) heart failure with preserved ejection fraction (Acute) Hyperkalemia (Acute) - Physical Exam General: Alert, Oriented x3, Cooperative HEENT: Atraumatic, PERRLA, EOMI, Normocephalic Neck: Supple Lungs: No rales, Diminished, Wheezes Cardiovascular: Normal S1, Normal S2, No murmurs Abdomen: Bowel Sounds Present, Soft, Non Tender Extremities: No cyanosis, Edema Skin: No rashes, No breakdown Musculoskeletal: No Tenderness to Palpation of Joints or Extremities Neurological: Cranial nerves II-XII grossly intact Psych/Mental Status: Normal Affect Vital Signs Temp Pulse Resp BP Pulse Ox 97.6 F L 78 24 H 148/52 H 100 11/26/18 20:46 11/26/18 22:57 11/26/18 22:20 11/26/18 20:51 11/26/18 20:46 Oxygen Flow Rate (L/min) 3 Oxygen Delivery Method Nasal Cannula Weight: 81.5 kg Body Mass Index (BMI) 27.2 Finger Stick Blood Glucose 200 Laboratory Tests Past 24 Hrs 11/26/18 11/26/18 15:05 15:05 WBC 11.8 H RBC 2.71 L Hgb 8.5 L Hct 27.6 L MCV 101.8 H MCH 31.4 MCHC 30.8 L RDW 15.9 H RDW Differential 57.7 H Plt Count 171 MPV 9.8 Immature Gran % (Auto) 0.500 Neut % (Auto) 89.4 H Lymph % (Auto) 6.9 L [place] % (Auto) 3.0 Eos % (Auto) 0.0 Baso % (Auto) 0.2 Absolute Neuts (auto) 10.6 H Absolute Lymphs (auto) 0.81 L Total Counted Not Reportable Sodium 129 L Potassium 6.0 H* Chloride 92 L Carbon Dioxide 24.0 Anion Gap 13 BUN 83 H Creatinine 8.30 H* Estim Creat Clear Calc 8.36 Est GFR (MDRD) Af Amer 8 L Est GFR (MDRD) Non-Af 7 L BUN/Creatinine Ratio 10.0 Glucose 120 H Calcium 8.4 L Troponin I 0.040 Assessment/Plan All Active Problems (Last Reviewed 11/26/18 @ 18:35 by Chris Stark DO) Acute respiratory insufficiency (Acute) (HFpEF) heart failure with preserved ejection fraction (Acute) Hyperkalemia (Acute) HCAP (healthcare-associated pneumonia) (Acute) Abnormal cardiac enzyme level (Acute) DAI (acute kidney injury) (Resolved) Hypertensive emergency (Resolved) Problem with dialysis access (Resolved) S/P dialysis catheter insertion (Resolved 05/22/18) History of thoracentesis (Resolved 05/22/18) Acute renal failure superimposed on chronic kidney disease (Resolved) Acute respiratory failure with hypoxia (Acute) Leukocytosis (Resolved) 1. ESRD. HD on [facility] as outpatient. Will arrange for dialysis early tomorrow on his usual day. 2. Hyperkalemia. K is 6.0. Give one dose of Kayexalate. Use 2K dialysate. 3. Hyponatremia. Likely due to ESRD. Na 129-asymptomatic. Should stabilize with HD. 4. HTN. BP is acceptable. Continue BP medications. 5. Acute hypoxic respiratory failure. On BiPAP. Will UF with HD tomorrow.
[2018-11-27] VITALS (18 sets, daily range): BP systolic 124–149; BP diastolic 54–87; PULSE 47–89; RESP 12–27; TEMP 36.6–37.4; O2SAT 90–98
[2018-11-27] MEDS: Albuterol 2.5 MG/3 ML VIAL.NEB. INHALATION (01:00)
[2018-11-27] MEDS: oxyCODONE 5 MG Tablet PO ×3 (01:27→11:42)
[2018-11-27] MEDS: Acetaminophen 325 MG Tablet 650 MG PO ×2 (01:27→11:41)
[2018-11-27] MEDS: Ipratropium/Albuterol Sulfate 3 ML AMPUL.NEB INHALATION ×2 (01:41→07:30)
[2018-11-27 06:40] LABS: Albumin, Serum 3.1 g/dL (3.2-5.0); BUN 102 mg/dL (7-18); BUN/Creat Ratio 11.5 RATIO (10-20); Calcium,Total 8.3 mg/dL (8.5-10.1); Chloride 90 mmol/L (98-107); EST Glomerular Filtration Rate 6 mL/min (>60); Est Glom Filt Rate - Afr Amer 8 mL/min (>60); Estimated Creatinine Clearance 7.79 ml/min; Glucose 127 mg/dL (74-106); Potassium 6.5 mmol/L (3.5-5.1); Sodium Level 131 mmol/L (136-145)
[2018-11-27 06:49] LABS: Absolute Lymphocyte Count 0.57 X10^3/ul (0.83-4.51); Absolute Neutrophil Count 6.1 X10^3/uL (2.0-7.7); Hematocrit 26.4 % (40-54); Hemoglobin 7.8 g/dl (13.0-16.5); Lymphocyte # 0.57 X10^3/ul (4.0); Lymphocyte % 8.2 % (19-41); Mean Corp Hgb Conc 29.5 g/gl (32-36); Mean Corpuscular Hgb 30.7 pg (27.0-32.0); Mean Corpuscular Volume 103.9 fL (80-94); Mean Platelet Vol. 10.2 fl (6.2-12.0); Monocyte# 0.19 X10^3/uL; Monocyte% 2.7 % (0-10); Neutrophil # 6.14 X10^3/uL (2.7-7.7); Neutrophil % 88.7 % (47-70); Platelet Count 179 K/mm3 (150-450); RBC Distribution Width CV 15.2 % (11.6-14.6); RBC Distribution Width SD 55.3 fl (35.1-43.9); Red Blood Count 2.54 M/mm3 (4.6-6.2); White Blood Count 6.9 K/mm3 (4.4-11.0)
[2018-11-27 07:01] LABS: Differential Indicated SCAN CRITERIA MET; POSITIVE COUNT NO; POSITIVE DIFFERENTIAL YES; POSITIVE MORPHOLOGY NO
--- NOTE | 2018-11-27 07:04 | EKG12_ITS ---
Test Reason : SOB Blood Pressure : / mmHG Vent. Rate : 080 BPM Atrial Rate : 080 BPM P-R Int : 260 ms QRS Dur : 092 ms QT Int : 386 ms P-R-T Axes : 040 067 209 degrees QTc Int : 445 ms Sinus rhythm with 1st degree A-V block ST & T wave abnormality, consider inferolateral ischemia Abnormal ECG When compared with ECG of 26-NOV-2018 14:46, MANUAL COMPARISON REQUIRED, DATA IS UNCONFIRMED Confirmed by VIKY MONTENEGRO, JOS ([id number]), scientific publications editor SHIRA HURD ([id number]) on 11/30/2018 8:49:17 AM Referred By: HOSP Confirmed By:JOS SALMON MD
[2018-11-27] MEDS: Dextrose 50%-Water 25 GM/50 ML DISP.SYRIN IV (07:46)
--- NOTE | 2018-11-27 09:58 | CASEMGMT ---
Readmission chart review: Pt was initially admitted 11/14/18-11/16/18 for pneumonia and states has had all scheduled dialysis sessions since discharge. Pt states did not finish amoxicillin as scheduled d/t rectal bleeding, but states did finish cipro. Pt returned 11/26/18 for SOB. See RN CM assessment completed by Hitesh ANDRADE CM on 11/14/18. CM to follow for any further discharge planning/needs. SStaten RAYMOND CM
--- NOTE | 2018-11-27 11:15 | PCM.PN.BLA ---
Progress Note Following for ESRD. Pt seen during HD session. Breathing is better after starting HD session. UF is set for 4 L this morning. BQ 350, DQ 600 UF 4L. 2K dialysate for hyperkalemia. BP 130/70. HR 74 Heart S1/S2 RRR Chest CTA Ext +2 edema Next HD session 11/29 Renal team will continue to follow Amanda Livingston MD
[2018-11-27] MEDS: hydrALAZINE 25 MG Tablet PO (11:42)
[2018-11-27] MEDS: Carvedilol 25 MG Tablet PO (11:42)
[2018-11-27] MEDS: Aspirin E.C. 81 MG Tablet PO (11:43)
[2018-11-27] MEDS: predniSONE 10 MG Tablet PO (11:43)
[2018-11-27] MEDS: Tamsulosin HCl 0.4 MG Capsule 0.8 MG PO (11:43)
[2018-11-27] MEDS: Isosorbide Mononitrate 30 MG Tablet PO (11:43)
[2018-11-27] MEDS: Clopidogrel Bisulfate 75 MG Tablet PO (11:43)
--- NOTE | 2018-11-27 12:00 | DCINST_ITS ---
- Discharge Diagnoses Current Active Problems: Current Active and Chronic Problems (Last Reviewed 11/26/18 @ 18:35 by Chris Stark DO) Acute respiratory insufficiency (Acute) (HFpEF) heart failure with preserved ejection fraction (Acute) Hyperkalemia (Acute) You will use the following diet at home:: Renal (restricted protein/sodium) Your food should be the consistency of: Regular Your liquids should be the consistency of: Regular/Thin Discharge Activity: Return to Normal Activity Weight Bearing Status: Weight bearing as tolerated Call your doctor if you observe: Fever of 101 or Higher, Shortness of breath, Swelling in the ankles Allergies/Adverse Reactions: Allergies irbesartan [From Avapro] Allergy (Severe, Verified 11/26/18 18:46) Blisters zolpidem [From Ambien] Adverse Reaction (Severe, Verified 11/26/18 18:46) made me go crazy, memory loss Medications to take at Discharge Albuterol Sulfate 2.5 mg IH Q4H PRN 11/13/18 Alprazolam [Xanax] 0.5 mg PO TID PRN 11/13/18 Amlodipine [Norvasc] 10 mg PO QHS 11/13/18 Aspirin E.C. [Ecotrin] 81 mg PO DAILY@0800 11/13/18 Carvedilol [Coreg] 25 mg PO BID 11/13/18 Clopidogrel Bisulfate [Plavix] 75 mg PO DAILY 11/13/18 Ferric Citrate [Auryxia] 210 mg PO BID 11/13/18 Isosorbide Mononitrate [Imdur] 30 mg PO DAILY 11/13/18 Lactulose 30 gm PO QODAY 11/13/18 Prednisone 10 mg PO DAILY 11/13/18 Ropinirole HCl [Requip] 1 mg PO QHS 11/13/18 Rosuvastatin Calcium [Crestor] 40 mg PO QHS 11/13/18 Tamsulosin HCl [Flomax] 0.8 mg PO DAILY 11/13/18 hydrALAZINE [Apresoline] 25 mg PO BID 11/13/18 Primary Care Physician: Tania Berger NP-C [Primary Care Provider] - Please follow up with your Primary Care Physician in: one week Test Results: Test results from this visit will be discussed in further detail at your follow- up appointment, if applicable. Please Follow Up With: Amanda Livingston MD When: one week Proposed Discharge Date: 11/27/18
[2018-11-27] MEDS: Calcium Acetate 667 MG Capsule 1334 MG PO (12:50)
[2018-11-27] MEDS: ALPRAZolam 0.5 MG Tablet PO (12:50)
--- NOTE | 2018-11-27 14:16 | PCM.DC.SUM ---
Discharge Date and Diagnosis Date of Admission: 11/26/18 Date of Discharge: 11/27/18 - Primary Discharge Diagnosis fluid overload due to acute flash pulmonary edema from ESRD - Secondary Discharge Diagnosis Chronic Problems (Last Reviewed 11/26/18 @ 18:35 by Chris Stark DO) Chronic renal failure, stage 5 (Chronic) ESRD (end stage renal disease) (Chronic) History of non-ST elevation myocardial infarction (NSTEMI) (Chronic 01/21/11) History of left heart catheterization (Chronic 01/21/11) 10/13/[address] Barrientos @ [facility]:Per Dr. Jiménez @ [facility]: CABG recommended History of right and left heart catheterization (Chronic 05/24/18) Patent NICHOLAS to LAD, SVG to 1st OM and SVG to RCA. Elevated right heart pressures, significant Diastolic dysfunction per cath done @ [facility], Dr. Barrientos Stented coronary artery (Chronic) 2003, JASON to circumflex ; 10/13/2009 tsfer from [facility] to [facility], total of 5 bare metal stents to RCA per Dr. Barrientos @ [facility]: 3.5 X 18 Bad Work Gatherer, followed distally by 3.0 X12 Bad Work Gatherer to distal RCA;3.5 X 15 Bad Work Gatherer, followed proximally by 4.0 X 18 Bad Work Gatherer to Mid RCA; 4.0 X 18 Bad Work Gatherer to Proximal RCA S/P CABG x 3 (Chronic 01/26/11) [facility] per Dr. Osito Hernandez: NICHOLAS to LAD, reverse SVG to OMbranch of CX, reverse SVG to PDA of RCA. PDA endarterectomy. Status post peripheral artery angioplasty with insertion of stent (Chronic ~2010) Right common iliac, [facility] Atherosclerotic heart disease of [place] coronary artery without angina pectoris (Chronic) 2003, JASON to circumflex ; 10/10/2009 tsfer from [facility] to [facility], total of 5 bare metal stents to RCA; CABG X 3 vessels @ [facility] 01/31/2011 (critical left main and restenosis of RCA stents) Diastolic CHF (Chronic) HLD (hyperlipidemia) (Chronic) HTN (hypertension) (Chronic) PAD (peripheral artery disease) (Chronic) COPD (chronic obstructive pulmonary disease) (Chronic) Tobacco dependence (Chronic) Anemia (Chronic) BPH (benign prostatic hyperplasia) (Chronic) Hospital Course and Treatment Imaging Results: Diagnostic Data Chest X-Ray 11/26/18 14:30 IMPRESSION: Stable mild chronic CHF/fluid overload with trace left pleural fluid. Electronically Signed: Nabil Prater MD at 15:17 EST , Service support , nephrology Operations: None Procedures: Dialysis Summary of Care Provided: Patient is a 68-year-old male with an extensive past medical history as listed who was admitted with a complaint of worsening shortness of breath and a mild fever of 100.7 Fahrenheit. Chest x-ray showed fluid overload he was also noted to have elevated potassium of 6 but had no acute [address] changes. Patient had been admitted and managed for pneumonia and was just discharged on November 16. He has a history of ESRD on dialysis and at home going for regular dialysis. He last had dialysis on Tuesday prior to be admitted. He also had lower extremity edema as well. He was admitted and managed for possible acute diastolic heart failure and fluid overload due to ESRD. However, on review, symptoms were likely due to fluid overload due to flash pulmonary edema from ESRD and not acute on chronic diastolic heart failure. Patient was noted on a diuretic as he makes very little urine. Nephrology was consulted. Patient had dialysis on 11/27/1939 at 4.1 L of fluid removed. Patient felt very well immediately dialysis started and wanted to be discharged after dialysis. Patient remained stable after dialysis which he tolerated well and was discharged home on 11/27/2018 after discussion with nephrology. He is to follow-up with his primary care doctor with nephrology. Patient seen and examined prior to discharge. He had no complaints and felt well. He denied any fever, any chills, and palpitations or dizziness, any chest pain, any abdominal pain, any diarrhea vomiting. Review of systems otherwise negative. Labs and vitals reviewed. Home medications reviewed and reconciled. Patient did states that the antibiotics he was put on for his pneumonia given rectal bleeding. Rectal bleeding has not recurred since. He states he has been told he is now stable enough for colonoscopy and so has not had one in 14 years. He denied any associated weight loss. Patient counseled to follow-up with his primary care doctor and environmental remediation engineer on account of the rectal bleeding he had a couple of weeks ago which he attributed to amoxicillin. o/e: Vital Signs Height 5 ft 8.11 in Weight: 179 lb 10.828 oz Weight in Pounds 179.7 lbs Pulse Ox [AMBULATING on Room 90 Air] Pulse Ox [At REST on Room Air] 96 Pulse Ox 91 Temperature 99.3 F Pulse Rate 87 Respiratory Rate 20 Blood Pressure 124/59 Blood Pressure Position Semi-Fowlers General: Alert, Cooperative, No apparent distress, HEENT: Atraumatic, Normocephalic Oral: Moist Mucosa, No Gingival or Mucosal Lesions/ Ulcerations Neck: No Nodes, Thyroid Normal Size and Texture Lungs: Diminished breath sounds bibasally, on room air. Abdomen: Bowel Sounds Present, Soft, Non Tender, Non-Distended, No Hepato-splenomegaly Extremities: No Calf Tenderness Skin: No rashes, No breakdown; chest dialysis catheter in place Musculoskeletal: No Tenderness to Palpation of Joints or Extremities, No Muscle Wasting Psych/Mental Status: Normal Affect, Appropriate Plan is for patient to resume his regular dialysis session in 2 day's time, on Tuesday11/29/14. His follow-up with his primary care doctor and pediatric associate. Patient also counseled strongly to follow-up with environmental remediation engineer on account of history of rectal bleeding about 2 weeks ago. He says he has an appointment coming up with his environmental remediation engineer. - Physical Exam Vital Signs Temp Pulse Resp BP Pulse Ox 99.3 F H 87 20 H 124/59 H 96 11/27/18 11:30 11/27/18 11:42 11/27/18 11:30 11/27/18 11:30 11/27/18 13:02 Oxygen Flow Rate (L/min) 3 Oxygen Delivery Method Room Air Weight: 179 lb 10.828 oz Body Mass Index (BMI) 27.2 Finger Stick Blood Glucose 200 Intake and Output for Last 24 Hours 11/25/18 11/26/18 11/27/18 23:59 23:59 23:59 Intake Total 180 / 180 Output Total 4150 / 4150 Balance -3970 / -3970 Microbiology Past 72 Hours 11/26/18 21:00 Respiratory Panel (PCR) - Final Mucosa - Nasopharyngeal Laboratory Tests Past 24 Hrs 11/26/18 11/26/18 11/27/18 15:05 15:05 05:55 WBC 11.8 H RBC 2.71 L Hgb 8.5 L Hct 27.6 L MCV 101.8 H MCH 31.4 MCHC 30.8 L RDW 15.9 H RDW Differential 57.7 H Plt Count 171 MPV 9.8 Immature Gran % (Auto) 0.500 Neut % (Auto) 89.4 H Lymph % (Auto) 6.9 L [place] % (Auto) 3.0 Eos % (Auto) 0.0 Baso % (Auto) 0.2 Absolute Neuts (auto) 10.6 H Absolute Lymphs (auto) 0.81 L Total Counted Not Reportable Sodium 129 L 131 L Potassium 6.0 H* 6.5 H* Chloride 92 L 90 L Carbon Dioxide 24.0 23.0 Anion Gap 13 BUN 83 H 102 H* Creatinine 8.30 H* 8.90 H* Estim Creat Clear Calc 8.36 7.79 Est GFR (MDRD) Af Amer 8 L 8 L Est GFR (MDRD) Non-Af 7 L 6 L BUN/Creatinine Ratio 10.0 11.5 Glucose 120 H 127 H Calcium 8.4 L 8.3 L Phosphorus 9.0 H* Troponin I 0.040 Albumin 3.1 L 11/27/18 05:55 WBC 6.9 RBC 2.54 L Hgb 7.8 L Hct 26.4 L MCV 103.9 H MCH 30.7 MCHC 29.5 L RDW 15.2 H RDW Differential 55.3 H Plt Count 179 MPV 10.2 Immature Gran % (Auto) 0.400 Neut % (Auto) 88.7 H Lymph % (Auto) 8.2 L [place] % (Auto) 2.7 Eos % (Auto) 0.0 Baso % (Auto) 0.0 Absolute Neuts (auto) 6.1 Absolute Lymphs (auto) 0.57 L Total Counted Not Reportable Sodium Potassium Chloride Carbon Dioxide Anion Gap BUN Creatinine Estim Creat Clear Calc Est GFR (MDRD) Af Amer Est GFR (MDRD) Non-Af BUN/Creatinine Ratio Glucose Calcium Phosphorus Troponin I Albumin Discharge Diet: Renal Diet Discharge Activity: Return to Normal Activity Weight Bearing Status: Weight bearing as tolerated Call your doctor if you observe: Fever of 101 or Higher, Shortness of breath, Swelling in the ankles Home Medications: Medications to take at Discharge Albuterol Sulfate 2.5 mg IH Q4H PRN 11/13/18 Alprazolam [Xanax] 0.5 mg PO TID PRN 11/13/18 Amlodipine [Norvasc] 10 mg PO QHS 11/13/18 Aspirin E.C. [Ecotrin] 81 mg PO DAILY@0800 11/13/18 Carvedilol [Coreg] 25 mg PO BID 11/13/18 Clopidogrel Bisulfate [Plavix] 75 mg PO DAILY 11/13/18 Ferric Citrate [Auryxia] 210 mg PO BID 11/13/18 Isosorbide Mononitrate [Imdur] 30 mg PO DAILY 11/13/18 Lactulose 30 gm PO QODAY 11/13/18 Prednisone 10 mg PO DAILY 11/13/18 Ropinirole HCl [Requip] 1 mg PO QHS 11/13/18 Rosuvastatin Calcium [Crestor] 40 mg PO QHS 11/13/18 Tamsulosin HCl [Flomax] 0.8 mg PO DAILY 11/13/18 hydrALAZINE [Apresoline] 25 mg PO BID 11/13/18 Primary Care Physician: Tania Berger NP-C [Primary Care Provider] - Please follow up with your Primary Care Physician in: one week Please Follow Up With: Amanda Livingston MD When: one week Please Follow Up With: Erlin Nick MD When: one week Disposition: Home Minutes spent on discharge:: 40 Patient Condition:: Stable Medical Necessity - Tobacco Use Smoking Status: Current every day smoker Tobacco Use: Cigarettes, Pipe Meaningful Use Info Meaningful Use Diagnoses (Choose all that apply): None applicable Code Visit Inpatient E&M: 63434 Disch Hosp
--- NOTE | 2018-11-27 14:31 | DS.PCM_ITS ---
Discharge Date and Diagnosis Date of Admission: 11/26/18 Date of Discharge: 11/27/18 - Primary Discharge Diagnosis fluid overload due to acute flash pulmonary edema from ESRD - Secondary Discharge Diagnosis Chronic Problems (Last Reviewed 11/26/18 @ 18:35 by Chris Stark DO) Chronic renal failure, stage 5 (Chronic) ESRD (end stage renal disease) (Chronic) History of non-ST elevation myocardial infarction (NSTEMI) (Chronic 01/21/11) History of left heart catheterization (Chronic 01/21/11) 10/13/[address] Barrientos @ [facility]:Per Dr. Jiménez @ [facility]: CABG recommended History of right and left heart catheterization (Chronic 05/24/18) Patent NICHOLAS to LAD, SVG to 1st OM and SVG to RCA. Elevated right heart pressures, significant Diastolic dysfunction per cath done @ [facility], Dr. Barrientos Stented coronary artery (Chronic) 2003, JASON to circumflex ; 10/13/2009 tsfer from [facility] to [facility], total of 5 bare metal stents to RCA per Dr. Barrientos @ [facility]: 3.5 X 18 Mine Motor Operator, followed distally by 3.0 X12 Mine Motor Operator to distal RCA;3.5 X 15 Mine Motor Operator, followed proximally by 4.0 X 18 Mine Motor Operator to Mid RCA; 4.0 X 18 Mine Motor Operator to Proximal RCA S/P CABG x 3 (Chronic 01/26/11) [facility] per Dr. Osito Hernandez: NICHOLAS to LAD, reverse SVG to OMbranch of CX, reverse SVG to PDA of RCA. PDA endarterectomy. Status post peripheral artery angioplasty with insertion of stent (Chronic ~2010) Right common iliac, [facility] Atherosclerotic heart disease of [place] coronary artery without angina pectoris (Chronic) 2003, JASON to circumflex ; 10/10/2009 tsfer from [facility] to [facility], total of 5 bare metal stents to RCA; CABG X 3 vessels @ [facility] 01/31/2011 (critical left main and restenosis of RCA stents) Diastolic CHF (Chronic) HLD (hyperlipidemia) (Chronic) HTN (hypertension) (Chronic) PAD (peripheral artery disease) (Chronic) COPD (chronic obstructive pulmonary disease) (Chronic) Tobacco dependence (Chronic) Anemia (Chronic) BPH (benign prostatic hyperplasia) (Chronic) Hospital Course and Treatment Imaging Results: Diagnostic Data Chest X-Ray 11/26/18 14:30 IMPRESSION: Stable mild chronic CHF/fluid overload with trace left pleural fluid. Electronically Signed: Nabil Prater MD at 15:17 EST , Service support , nephrology Operations: None Procedures: Dialysis Summary of Care Provided: Patient is a 68-year-old male with an extensive past medical history as listed who was admitted with a complaint of worsening shortness of breath and a mild fever of 100.7 Fahrenheit. Chest x-ray showed fluid overload he was also noted to have elevated potassium of 6 but had no acute [address] changes. Patient had been admitted and managed for pneumonia and was just discharged on November 16. He has a history of ESRD on dialysis and at home going for regular dialysis. He last had dialysis on Tuesday prior to be admitted. He also had lower extremity edema as well. He was admitted and managed for possible acute diastolic heart failure and fluid overload due to ESRD. However, on review, symptoms were likely due to fluid overload due to flash pulmonary edema from ESRD and not acute on chronic diastolic heart failure. Patient was noted on a diuretic as he makes very little urine. Nephrology was consulted. Patient had dialysis on 11/27/1939 at 4.1 L of fluid removed. Patient felt very well immediately dialysis started and wanted to be discharged after dialysis. Patient remained stable after dialysis which he tolerated well and was discharged home on 11/27/2018 after discussion with nephrology. He is to follow-up with his primary care doctor with nephrology. Patient seen and examined prior to discharge. He had no complaints and felt well. He denied any fever, any chills, and palpitations or dizziness, any chest pain, any abdominal pain, any diarrhea vomiting. Review of systems otherwise negative. Labs and vitals reviewed. Home medications reviewed and reconciled. Patient did states that the antibiotics he was put on for his pneumonia given rectal bleeding. Rectal bleeding has not recurred since. He states he has been told he is now stable enough for colonoscopy and so has not had one in 14 years. He denied any associated weight loss. Patient counseled to follow-up with his primary care doctor and documentation engineer on account of the rectal bleeding he had a couple of weeks ago which he attributed to amoxicillin. o/e: Vital Signs Height 5 ft 8.11 in Weight: 179 lb 10.828 oz Weight in Pounds 179.7 lbs Pulse Ox [AMBULATING on Room 90 Air] Pulse Ox [At REST on Room Air] 96 Pulse Ox 91 Temperature 99.3 F Pulse Rate 87 Respiratory Rate 20 Blood Pressure 124/59 Blood Pressure Position Semi-Fowlers General: Alert, Cooperative, No apparent distress, HEENT: Atraumatic, Normocephalic Oral: Moist Mucosa, No Gingival or Mucosal Lesions/ Ulcerations Neck: No Nodes, Thyroid Normal Size and Texture Lungs: Diminished breath sounds bibasally, on room air. Abdomen: Bowel Sounds Present, Soft, Non Tender, Non-Distended, No Hepato- splenomegaly Extremities: No Calf Tenderness Skin: No rashes, No breakdown; chest dialysis catheter in place Musculoskeletal: No Tenderness to Palpation of Joints or Extremities, No Muscle Wasting Psych/Mental Status: Normal Affect, Appropriate Plan is for patient to resume his regular dialysis session in 2 day's time, on Tuesday11/29/14. His follow-up with his primary care doctor and realty loan specialist. Patient also counseled strongly to follow-up with documentation engineer on account of history of rectal bleeding about 2 weeks ago. He says he has an appointment coming up with his documentation engineer. - Physical Exam Vital Signs Temp Pulse Resp BP Pulse Ox 99.3 F H 87 20 H 124/59 H 96 11/27/18 11:30 11/27/18 11:42 11/27/18 11:30 11/27/18 11:30 11/27/18 13:02 Oxygen Flow Rate (L/min) 3 Oxygen Delivery Method Room Air Weight: 179 lb 10.828 oz Body Mass Index (BMI) 27.2 Finger Stick Blood Glucose 200 Intake and Output for Last 24 Hours 11/25/18 11/26/18 11/27/18 23:59 23:59 23:59 Intake Total 180 / 180 Output Total 4150 / 4150 Balance -3970 / -3970 Microbiology Past 72 Hours 11/26/18 21:00 Respiratory Panel (PCR) - Final Mucosa - Nasopharyngeal Laboratory Tests Past 24 Hrs 11/26/18 11/26/18 11/27/18 15:05 15:05 05:55 WBC 11.8 H RBC 2.71 L Hgb 8.5 L Hct 27.6 L MCV 101.8 H MCH 31.4 MCHC 30.8 L RDW 15.9 H RDW Differential 57.7 H Plt Count 171 MPV 9.8 Immature Gran % (Auto) 0.500 Neut % (Auto) 89.4 H Lymph % (Auto) 6.9 L Hettinger % (Auto) 3.0 Eos % (Auto) 0.0 Baso % (Auto) 0.2 Absolute Neuts (auto) 10.6 H Absolute Lymphs (auto) 0.81 L Total Counted Not Reportable Sodium 129 L 131 L Potassium 6.0 H* 6.5 H* Chloride 92 L 90 L Carbon Dioxide 24.0 23.0 Anion Gap 13 BUN 83 H 102 H* Creatinine 8.30 H* 8.90 H* Estim Creat Clear Calc 8.36 7.79 Est GFR (MDRD) Af Amer 8 L 8 L Est GFR (MDRD) Non-Af 7 L 6 L BUN/Creatinine Ratio 10.0 11.5 Glucose 120 H 127 H Calcium 8.4 L 8.3 L Phosphorus 9.0 H* Troponin I 0.040 Albumin 3.1 L 11/27/18 05:55 WBC 6.9 RBC 2.54 L Hgb 7.8 L Hct 26.4 L MCV 103.9 H MCH 30.7 MCHC 29.5 L RDW 15.2 H RDW Differential 55.3 H Plt Count 179 MPV 10.2 Immature Gran % (Auto) 0.400 Neut % (Auto) 88.7 H Lymph % (Auto) 8.2 L Hettinger % (Auto) 2.7 Eos % (Auto) 0.0 Baso % (Auto) 0.0 Absolute Neuts (auto) 6.1 Absolute Lymphs (auto) 0.57 L Total Counted Not Reportable Sodium Potassium Chloride Carbon Dioxide Anion Gap BUN Creatinine Estim Creat Clear Calc Est GFR (MDRD) Af Amer Est GFR (MDRD) Non-Af BUN/Creatinine Ratio Glucose Calcium Phosphorus Troponin I Albumin Discharge Diet: Renal Diet Discharge Activity: Return to Normal Activity Weight Bearing Status: Weight bearing as tolerated Call your doctor if you observe: Fever of 101 or Higher, Shortness of breath, Swelling in the ankles Home Medications: Medications to take at Discharge Albuterol Sulfate 2.5 mg IH Q4H PRN 11/13/18 Alprazolam [Xanax] 0.5 mg PO TID PRN 11/13/18 Amlodipine [Norvasc] 10 mg PO QHS 11/13/18 Aspirin E.C. [Ecotrin] 81 mg PO DAILY@0800 11/13/18 Carvedilol [Coreg] 25 mg PO BID 11/13/18 Clopidogrel Bisulfate [Plavix] 75 mg PO DAILY 11/13/18 Ferric Citrate [Auryxia] 210 mg PO BID 11/13/18 Isosorbide Mononitrate [Imdur] 30 mg PO DAILY 11/13/18 Lactulose 30 gm PO QODAY 11/13/18 Prednisone 10 mg PO DAILY 11/13/18 Ropinirole HCl [Requip] 1 mg PO QHS 11/13/18 Rosuvastatin Calcium [Crestor] 40 mg PO QHS 11/13/18 Tamsulosin HCl [Flomax] 0.8 mg PO DAILY 11/13/18 hydrALAZINE [Apresoline] 25 mg PO BID 11/13/18 Primary Care Physician: Tania Berger NP-C [Primary Care Provider] - Please follow up with your Primary Care Physician in: one week Please Follow Up With: Amanda Livingston MD When: one week Please Follow Up With: Erlin Nick MD When: one week Disposition: Home Minutes spent on discharge:: 40 Patient Condition:: Stable Medical Necessity - Tobacco Use Smoking Status: Current every day smoker Tobacco Use: Cigarettes, Pipe Meaningful Use Info Meaningful Use Diagnoses (Choose all that apply): None applicable Code Visit Inpatient E&M: 35202 Disch Hosp
--- NOTE | 2018-11-28 13:50 | CASEMGMT ---
RAYMOND SPENCER DC PHONE CALL DC DATE: 11/27/18 DC Disposition: Home LACE/STRATA: 27/01 No answer via phone.
== END 2018-11-27 13:49 | disposition home or self-care (01) | DRG 291 ==
LOC: ED 15:21 → PCU 17:51
PROVIDERS: Internal Medicine Nephrology; Emergency Provider Emergency Medicine; Family Provider Nurse Practitioner Family; PCP Nurse Practitioner Family; Visit Provider Student in an Organized Health Care Education/Training Program
DX: I13.2 Hypertensive heart and chronic kidney disease with heart failure and with stage 5 chronic kidney disease, or end stage renal disease (principal); N18.6 End stage renal disease; E87.1 Hypo-osmolality and hyponatremia; I50.32 Chronic diastolic (congestive) heart failure; E87.5 Hyperkalemia; Z99.2 Dependence on renal dialysis; F17.210 Nicotine dependence, cigarettes, uncomplicated; E78.5 Hyperlipidemia, unspecified; N40.0 Benign prostatic hyperplasia without lower urinary tract symptoms; I73.9 Peripheral vascular disease, unspecified; J44.9 Chronic obstructive pulmonary disease, unspecified; I25.10 Atherosclerotic heart disease of native coronary artery without angina pectoris; D64.9 Anemia, unspecified; Z95.1 Presence of aortocoronary bypass graft; I25.2 Old myocardial infarction; Z95.5 Presence of coronary angioplasty implant and graft
CPT/HCPCS: 36415; 71045; 80048; 80069; 84484; 85025; 87040; 87633; 90937; 93005; 94002; 94003; 94640; 99285; 99406; J7050; A4216; G0257; J0744

== ENCOUNTER 2018-12-06 01:09 | Inpatient (IN) | payer MEDICARE, SELFPAY ==
[2018-11-26 18:25] VITALS: BMI 27.2
[2018-12-06] VITALS (76 sets, daily range): BP systolic 57–169; BP diastolic 21–83; PULSE 66–104; RESP 12–27; TEMP 36.1–36.9; O2SAT 17–100; BMI 27.1; BMI 26.4; BMI 27.2
--- NOTE | 2018-12-06 01:23 | RAD_ITS ---
STUDY: X-RAY CHEST REASON FOR EXAM: Male, 68 years old. Shortness of breath TECHNIQUE: Single AP portable view of the chest. COMPARISON: 11/26/2018 FINDINGS: Patchy airspace infiltration throughout bilateral lung bases, worsened from prior imaging. Small left pleural effusion, unchanged. No pneumothorax. Mild cardiomegaly. Median sternotomy wires and coronary artery bypass graft clips noted. Normal mediastinum and justyn. Normal visualized pulmonary arteries. There is atherosclerotic calcification of the aortic arch . Normal visualized thoracic spine. Normal visualized ribs, clavicles, and shoulders. There is no demonstrated abnormality of the visualized soft tissue structures of the upper abdomen. RAD/Chest 1 View (Portable) IMPRESSION: 1. Worsening congestive heart failure. 2. Stable small left pleural effusion. Electronically Signed: Robert García MD at 2:31 EST Tel , Service support ,
--- NOTE | 2018-12-06 01:24 | EKG12_ITS ---
Test Reason : Blood Pressure : / mmHG Vent. Rate : 083 BPM Atrial Rate : 083 BPM P-R Int : 000 ms QRS Dur : 092 ms QT Int : 404 ms P-R-T Axes : 000 074 183 degrees QTc Int : 474 ms Sinus rhythm Left ventricular hypertrophy with repolarization abnormality Abnormal ECG Confirmed by SANTANA MONTENEGRO, KEISHA ([id number]), society editor SHIRA HURD ([id number]) on 12/07/2018 1:26:17 PM Referred By: Armen Henderson Confirmed By:KEISHA DILLON MD
--- NOTE | 2018-12-06 01:36 | CT_ITS ---
We are attempting to reach Andreia Jeffery MD to discuss findings. An addendum with communication details will be sent when the communication is complete. STUDY: CT ABDOMEN AND PELVIS WITHOUT CONTRAST REASON FOR EXAM: Male, 68 years old. Abdominal pain RADIATION DOSAGE (If Supplied By Facility): CTDIvol = ( 8.79 ) mGy, DLP = ( 450.33 ) mGycm TECHNIQUE: Transaxial images were obtained from the dome of the diaphragm to the symphysis pubis without oral contrast, and without intravenous contrast. Sagittal and coronal images were reconstructed. Individualized dose optimization techniques were used for this CT. COMPARISON: None. FINDINGS: Patchy airspace borderline cardiomegaly. Infiltration throughout bilateral lung bases. Trace bilateral pleural effusions. Borderline cardiomegaly. Normal pericardium. Portal venous gas Normal gallbladder and extrahepatic biliary system. Normal spleen. Normal pancreas. Normal bilateral adrenal glands. Normal right kidney. Atrophy of the left kidney. 1.3 cm hypoattenuated exophytic lesion off the lateral midpole of the left kidney no hydronephrosis. Normal visualized stomach. Normal small intestine. There is pneumatosis of the cecum and ascending colon with portal venous gas coursing throughout the draining mesenteric venous channels. The appendix is visualized and appears normal. Moderate atherosclerotic calcification of the abdominal vasculature. Normal inferior vena cava. Normal retroperitoneum. Normal urinary bladder. Normal abdominal wall. There are diffuse degenerative changes of the visualized lumbar spine. CT/Abdomen/Pelvis without Cont IMPRESSION: 1. Pneumatosis of the cecum and descending colon with extensive portal venous gas throughout the mesenteric venous channels and into the periphery of the liver parenchyma. 2. Bibasilar airspace infiltration, either representing confluent dependent edema or bibasilar pneumonia. 3. Trace bilateral pleural effusions. 4. Left renal atrophy 5. Simple appearing cyst off of the lateral midpole of the left kidney. Electronically Signed: Robert García MD at 2:41 EST Tel , Service support ,
--- NOTE | 2018-12-06 01:45 | ED.DCSUM_ITS ---
- ER Visit Summary Date of Service: 12/06/18 Chief Complaint: Abdominal pain History of Present Illness: The patient is a 68 M presenting with abdominal pain. He states this started today. Patient complains of diffuse abdominal pain, nausea, vomiting. He has had constipation. He took lactulose today and did have a bowel movement. He was recently admitted from November 26 of November 27 for CHF and fluid overload. He is on dialysis. He received his dialysis yesterday. He has chronic shortness of breath which is no worse than usual. He denies chest pain. Denies fever. Denies other complaints. Physical Examination: Vitals are stable. Patient is afebrile. Alert moderate acute distress. HEENT exam is unremarkable. Neck is supple. Lungs are rales bases bilaterally. Heart is regular rate and rhythm. Abdomen is soft diffuse tenderness, distended. Extremities are unremarkable. Skin is warm and dry. Remainder of exam is unremarkable. Emergency Department Course and Treatment: Patient was given morphine, Zofran IV. EKG is sinus rate of 83, LVH, unchanged from previous. Chest x-ray shows CHF. CBC is awake 11.8, hemoglobin 9.0. Chemistries show sodium 128, glucose 233, BUN 25, creatinine 6.68. AST 40, lipase 346. Lactic acid 1.4. CT abdomen pelvis shows pneumatosis of the cecum and descending colon with extensive portal venous gas throughout the mesenteric venous channels and into the periphery of the liver parenchyma. Bibasilar airspace infiltration, either representing confluent dependent edema or bibasilar pneumonia. Trace bilateral pleural effusions. Left renal atrophy. Simple appearing cyst off of the lateral midpole of the left kidney. Findings were discussed with Dr. Henderson who came to evaluate the patient in the ED. Patient will be taken to the OR. Disposition: Admission Impression: Ischemic bowel This note was generated with [employer] dictation software. It may contain incorrect words, spelling, and punctuation that were not noted in review of the chart prior to signing ED Disposition - Plan for ED Patient: Referrals: Tania Berger NP-C [Primary Care Provider] -
[2018-12-06 01:55] LABS: Anion Gap 18 (5-15); BUN 75 mg/dL (7-18); BUN/Creat Ratio 11.2 RATIO (10-20); Chloride 90 mmol/L (98-107); Creatinine, Serum 6.68 mg/dL (0.70-1.30); EST Glomerular Filtration Rate 9 mL/min (>60); Est Glom Filt Rate - Afr Amer 11 mL/min (>60); Estimated Creatinine Clearance 10.38 ml/min; Glucose 233 mg/dL (74-106); Potassium 4.7 mmol/L (3.5-5.1); Sodium Level 128 mmol/L (136-145)
[2018-12-06] MEDS: Ondansetron 4 MG/2 ML Vial IV (02:03)
[2018-12-06] MEDS: Morphine 4 MG/ML Syringe IV ×3 (02:05→04:29)
[2018-12-06 02:09] LABS: Absolute Neutrophil Count 11.4 X10^3/uL (2.0-7.7); Eosinophil# 0.01 X10^3/uL; Eosinophils% 0.1 % (0-5); Hematocrit 28.9 % (40-54); Lymphocyte % 2.5 % (19-41); Mean Corp Hgb Conc 31.1 g/gl (32-36); Mean Corpuscular Hgb 32.1 pg (27.0-32.0); Mean Corpuscular Volume 103.2 fL (80-94); Monocyte# 0.03 X10^3/uL; Monocyte% 0.3 % (0-10); Neutrophil # 11.39 X10^3/uL (2.7-7.7); Neutrophil % 96.8 % (47-70); Platelet Count 154 K/mm3 (150-450); RBC Distribution Width CV 18.2 % (11.6-14.6); White Blood Count 11.8 K/mm3 (4.4-11.0)
[2018-12-06 02:10] LABS: AST(SGOT) 40 U/L (15-37); Alanine Aminotransfer ALT/SGPT 21 U/L (16-61); Albumin, Serum 3.2 g/dL (3.2-5.0); Alkaline Phosphatase 74 U/L (45-117); Bilirubin, Direct 0.11 mg/dL (0.00-0.30); Globulin 3.7 g/dL (2.2-4.2); Lipase 346 U/L (73-393); Protein, Total 6.9 g/dL (6.4-8.2)
[2018-12-06 02:16] LABS: Differential Indicated SCAN CRITERIA MET; POSITIVE COUNT NO; POSITIVE DIFFERENTIAL YES; POSITIVE MORPHOLOGY YES
--- NOTE | 2018-12-06 02:45 | ED.RN ---
DR SULLIVAN NOTIFIED PT REQUESTING ADDITIONAL PAIN MEDS
[2018-12-06 02:47] LABS: Anisocytosis 2+; Differential Comment SCANNED; Macrocytosis 1+; Platelet Estimate ADEQUATE (ADEQ); Tear Drop Cell RARE
[2018-12-06 03:52] LABS: Lactic Acid 1.4 mmol/L (0.4-2.0)
--- NOTE | 2018-12-06 04:04 | PCM.HP.STD ---
Problem List (1) Colonic ischemia Status: Acute History of Present Illness Date of Admission: 12/06/18 The patient is a 68 year old M who presented to the emergency room with abdominal pain this evening. The patient reports that it started 3 hours before arrival. Patient reports that he did vomit. He has been having constipation. He says the pain is right-sided and middle of the abdomen. He says it is 9 out of 10. He denies any fevers or chills. He was recently admitted for COPD. Past Medical History Past Medical History (Chronic Problems): Chronic Problems (Last Reviewed 11/26/18 @ 18:35 by Chris Stark DO) Chronic renal failure, stage 5 (Chronic) ESRD (end stage renal disease) (Chronic) History of non-ST elevation myocardial infarction (NSTEMI) (Chronic 01/21/11) History of left heart catheterization (Chronic 01/21/11) 10/13/[address] Barrientos @ [facility]:Per Dr. Jiménez @ [facility]: CABG recommended History of right and left heart catheterization (Chronic 05/24/18) Patent NICHOLAS to LAD, SVG to 1st OM and SVG to RCA. Elevated right heart pressures, significant Diastolic dysfunction per cath done @ [facility], Dr. Barrientos Stented coronary artery (Chronic) 2003, JASON to circumflex ; 10/13/2009 tsfer from [facility] to [facility], total of 5 bare metal stents to RCA per Dr. Barrientos @ [facility]: 3.5 X 18 Pricing Analyst, followed distally by 3.0 X12 Pricing Analyst to distal RCA;3.5 X 15 Pricing Analyst, followed proximally by 4.0 X 18 Pricing Analyst to Mid RCA; 4.0 X 18 Pricing Analyst to Proximal RCA S/P CABG x 3 (Chronic 01/26/11) [facility] per Dr. Osito Hernandez: NICHOLAS to LAD, reverse SVG to OMbranch of CX, reverse SVG to PDA of RCA. PDA endarterectomy. Status post peripheral artery angioplasty with insertion of stent (Chronic ~2010) Right common iliac, 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 01/31/2011 (critical left main and restenosis of RCA stents) Acute renal failure superimposed on chronic kidney disease (Resolved) N17.9, N18.9 Diastolic CHF (Chronic) I50.30 HLD (hyperlipidemia) (Chronic) E78.5 HTN (hypertension) (Chronic) I10 PAD (peripheral artery disease) (Chronic) I73.9 COPD (chronic obstructive pulmonary disease) (Chronic) J44.9 Tobacco dependence (Chronic) F17.200 CKD (chronic kidney disease) (Inactive) N18.9 Leukocytosis (Resolved) D72.829 Anemia (Chronic) D64.9 BPH (benign prostatic hyperplasia) (Chronic) N40.0 Allergies irbesartan [From Avapro] Allergy (Severe, Verified 12/06/18 01:12) Blisters zolpidem [From Ambien] Adverse Reaction (Severe, Verified 12/06/18 01:12) made me go crazy, memory loss Home Medications: Ambulatory Orders Medication Instructions Recorded Albuterol Sulfate 2.5 mg IH Q4H PRN 11/13/18 Alprazolam [Xanax] 0.5 mg PO TID PRN 11/13/18 Aspirin E.C. [Ecotrin] 81 mg PO DAILY@0800 11/13/18 Clopidogrel Bisulfate [Plavix] 75 mg PO DAILY 11/13/18 Ferric Citrate [Auryxia] 210 mg PO BID 11/13/18 Lactulose 30 gm PO QODAY 11/13/18 Prednisone 10 mg PO DAILY 11/13/18 Ropinirole HCl [Requip] 1 mg PO QHS 11/13/18 Rosuvastatin Calcium [Crestor] 40 mg PO QHS 11/13/18 Tamsulosin HCl [Flomax] 0.8 mg PO DAILY 11/13/18 hydrALAZINE [Apresoline] 25 mg PO BID 11/13/18 Metoprolol(XL)Succ [Toprol Xl 100 mg PO BID 12/06/18 (Beta Kadi)] Surgical History: Surgical History (Last Reviewed 11/26/18 @ 18:35 by Chris Stark DO) History of left heart catheterization (Chronic) Onset Date: 01/21/11 Z98.890 10/13/[address] Barrientos @ [facility]:Per Dr. Jmiénez @ [facility]: CABG recommended S/P dialysis catheter insertion (Resolved) Onset Date: 05/22/18 Z95.828, Z99.2 Right internal jugular access per Dr. Demian Lua History of right and left heart catheterization (Chronic) Onset Date: 05/24/18 Z98.890 Patent NICHOLAS to LAD, SVG to 1st OM and SVG to RCA. Elevated right heart pressures, significant Diastolic dysfunction [facility] History of thoracentesis (Resolved) Onset Date: 05/22/18 Z98.890 1700 cc removed from right side Stented coronary artery (Chronic) Z95.5 2004, JASON to circumflex ; 10/13/2009 tsfer from [facility] to [facility], total of 5 bare metal stents to RCA per Dr. Barrientos @ [facility]: 3.5 X 18 Pricing Analyst, followed distally by 3.0 X12 Pricing Analyst to distal RCA;3.5 X 15 Pricing Analyst, followed proximally by 4.0 X 18 Pricing Analyst to Mid RCA; 4.0 X 18 Pricing Analyst to Proximal RCA S/P CABG x 3 (Chronic) Onset Date: 01/26/11 Z95.1 [facility] per Dr. Osito Hernandez: NICHOLAS to LAD, reverse SVG to OMbranch of CX, reverse SVG to PDA of RCA. PDA endarterectomy. history of surgically created arteriovenous fistula s/p fistulogram Onset Date: ~09/28/18 Surgical History: coronary bypass surgery, tonsillectomy Smoking Status: Current every day smoker - *Family History Maternal Family History: Family History (Last Reviewed 11/13/18 @ 12:56 by Manoj Christensen MD) Father CAD (coronary artery disease) Hypertension Kidney disease CVA (cerebral vascular accident) Other Cancer History Items: Heart Disease Paternal Family History: Family History (Last Reviewed 11/13/18 @ 12:56 by Manoj Christensen MD) Father CAD (coronary artery disease) Hypertension Kidney disease CVA (cerebral vascular accident) Other Cancer History Items: Heart Disease Review of Systems Constitutional: Denies: Anorexia, Fever HEENT: Denies: Difficulty Hearing Cardiovascular: Denies: Chest Pain Respiratory: Reports: Shortness of Breath Gastrointestinal: Reports: Abdominal Pain, Constipation, Nausea, Vomiting Genitourinary: Reports: - - Patient is dialysis dependent. Denies: Dysuria Musculoskeletal: Denies: Joint Tenderness Skin: Denies: Dryness Neurological: Denies: Confusion Hematologic/ Lymphatic: Reports: Easy Bruising, Easy Bleeding VTE Information - Inpt Only VTE Present on Admission: No VTE Mechan Device Prophylaxis: SCD's Patient Problems: Active and Suspected Problems (Last Reviewed 11/26/18 @ 18:35 by Chris Stark DO) Colonic ischemia (Acute) - Physical Exam General: Alert, Oriented x3 HEENT: Atraumatic Neck: No JVD Lungs: Short of Breath Cardiovascular: Regular rate, Regular Rhythm Abdomen: Soft, Distended, Tender Extremities: No clubbing Skin: No rashes Neurological: Cranial nerves II-XII grossly intact Psych/Mental Status: Normal Affect Vital Signs Temp Pulse Resp BP Pulse Ox 98.1 F 79 21 H 169/71 H 98 12/06/18 03:10 12/06/18 03:10 12/06/18 03:10 12/06/18 03:10 12/06/18 03:10 Oxygen Flow Rate (L/min) 4 Oxygen Delivery Method Nasal Cannula Weight: 178 lb 9.191 oz Body Mass Index (BMI) 27.1 Finger Stick Blood Glucose 200 Laboratory Tests Past 24 Hrs 12/06/18 12/06/18 12/06/18 01:26 01:26 01:26 WBC Cancelled Corrected WBC Cancelled RBC Cancelled Hgb Cancelled Hct Cancelled MCV Cancelled MCH Cancelled MCHC Cancelled RDW Cancelled RDW Differential Cancelled Plt Count Cancelled MPV Cancelled Immature Gran % (Auto) Cancelled Neut % (Auto) Cancelled Lymph % (Auto) Cancelled Foard % (Auto) Cancelled Eos % (Auto) Cancelled Baso % (Auto) Cancelled Absolute Neuts (auto) Cancelled Absolute Lymphs (auto) Cancelled Total Counted Cancelled Neutrophils % (Manual) Cancelled Band Neutrophils % Cancelled Lymphocytes % (Manual) Cancelled Monocytes % (Manual) Cancelled Eosinophils % (Manual) Cancelled Basophils % (Manual) Cancelled Metamyelocytes % Cancelled Myelocytes % Cancelled Promyelocytes % Cancelled Blast Cells % Cancelled Plasma Cell % (Manual) Cancelled Other Cells % Cancelled Nucleated RBCs/100 WBC Cancelled Differential Comment Cancelled Diff Path Review Cancelled Hypersegmented Neuts Cancelled Atypical Lymphocytes Cancelled Reactive Lymphocytes Cancelled Smudge Cells Cancelled Toxic Granulation Cancelled Dohle Bodies Cancelled Jer Rods Cancelled Platelet Estimate Cancelled Plt Morphology Comment Cancelled RBC Morphology Cancelled Polychromasia Cancelled Hypochromasia Cancelled Poikilocytosis Cancelled Basophilic Stippling Cancelled Anisocytosis Cancelled Microcytosis Cancelled Macrocytosis Cancelled Spherocytes Cancelled Sickle Cells Cancelled Target Cells Cancelled Tear Drop Cells Cancelled Ovalocytes Cancelled Stomatocytes Cancelled [place] Bodies Cancelled Minto Cells Cancelled Bite Cells Cancelled Acanthocytes (Spur) Cancelled Rouleaux Cancelled Schistocytes Cancelled Sodium 128 L Potassium 4.7 Chloride 90 L Carbon Dioxide 20.0 L Anion Gap 18 H BUN 75 H Creatinine 6.68 H Estim Creat Clear Calc 10.38 Est GFR (MDRD) Af Amer 11 L Est GFR (MDRD) Non-Af 9 L BUN/Creatinine Ratio 11.2 Glucose 233 H Lactic Acid Calcium 8.0 L Total Bilirubin 0.60 Direct Bilirubin 0.11 AST 40 H ALT 21 Alkaline Phosphatase 74 Total Protein 6.9 Albumin 3.2 Globulin 3.7 Lipase 346 12/06/18 12/06/18 01:59 03:00 WBC 11.8 H Corrected WBC RBC 2.80 L Hgb 9.0 L Hct 28.9 L MCV 103.2 H MCH 32.1 H MCHC 31.1 L RDW 18.2 H RDW Differential 68.0 H Plt Count 154 MPV 10.0 Immature Gran % (Auto) 0.300 Neut % (Auto) 96.8 H Lymph % (Auto) 2.5 L Foard % (Auto) 0.3 Eos % (Auto) 0.1 Baso % (Auto) 0.0 Absolute Neuts (auto) 11.4 H Absolute Lymphs (auto) 0.30 L Total Counted Not Reportable Neutrophils % (Manual) Band Neutrophils % Lymphocytes % (Manual) Monocytes % (Manual) Eosinophils % (Manual) Basophils % (Manual) Metamyelocytes % Myelocytes % Promyelocytes % Blast Cells % Plasma Cell % (Manual) Other Cells % Nucleated RBCs/100 WBC Differential Comment SCANNED Diff Path Review Hypersegmented Neuts Atypical Lymphocytes Reactive Lymphocytes Smudge Cells Toxic Granulation Dohle Bodies Jer Rods Platelet Estimate ADEQUATE Plt Morphology Comment RBC Morphology Polychromasia Hypochromasia Poikilocytosis Basophilic Stippling Anisocytosis 2+ Microcytosis Macrocytosis 1+ Spherocytes Sickle Cells Target Cells Tear Drop Cells RARE Ovalocytes Stomatocytes [place] Bodies Zach Cells Bite Cells Acanthocytes (Spur) Rouleaux Schistocytes Sodium Potassium Chloride Carbon Dioxide Anion Gap BUN Creatinine Estim Creat Clear Calc Est GFR (MDRD) Af Amer Est GFR (MDRD) Non-Af BUN/Creatinine Ratio Glucose Lactic Acid 1.4 Calcium Total Bilirubin Direct Bilirubin AST ALT Alkaline Phosphatase Total Protein Albumin Globulin Lipase Clinical Impression(s) from Imaging Studies Chest X-Ray 12/06/18 01:23 IMPRESSION: 1. Worsening congestive heart failure. 2. Stable small left pleural effusion. Electronically Signed: Robert García MD at 2:31 EST Tel , Service support , Abdomen/Pelvis CT 12/06/18 01:36 IMPRESSION: 1. Pneumatosis of the cecum and descending colon with extensive portal venous gas throughout the mesenteric venous channels and into the periphery of the liver parenchyma. 2. Bibasilar airspace infiltration, either representing confluent dependent edema or bibasilar pneumonia. 3. Trace bilateral pleural effusions. 4. Left renal atrophy 5. Simple appearing cyst off of the lateral midpole of the left kidney. Electronically Signed: Robert García MD at 2:41 EST Tel , Service support , ADDENDUM: 12/06/18 0253 IMPRESSION: 1. Pneumatosis of the cecum and descending colon with extensive portal venous gas throughout the mesenteric venous channels and into the periphery of the liver parenchyma. 2. Bibasilar airspace infiltration, either representing confluent dependent edema or bibasilar pneumonia. 3. Trace bilateral pleural effusions. 4. Left renal atrophy 5. Simple appearing cyst off of the lateral midpole of the left kidney. N.B. : The above information has been verbally conveyed by Robert García MD to Andreia Jeffery MD, MD, on 12/06/2018 02:45:55 (ET). Electronically Signed: Robert García MD at 2:41 EST Tel , Service support , Assessment/Plan All Active Problems (Last Reviewed 11/26/18 @ 18:35 by Chris Stark DO) Acute respiratory insufficiency (Acute) (HFpEF) heart failure with preserved ejection fraction (Acute) Hyperkalemia (Acute) Colonic ischemia (Acute) HCAP (healthcare-associated pneumonia) (Acute) Abnormal cardiac enzyme level (Acute) DAI (acute kidney injury) (Resolved) Hypertensive emergency (Resolved) Problem with dialysis access (Resolved) S/P dialysis catheter insertion (Resolved 05/22/18) History of thoracentesis (Resolved 05/22/18) Acute renal failure superimposed on chronic kidney disease (Resolved) Acute respiratory failure with hypoxia (Acute) Leukocytosis (Resolved) 68-year-old male with portal venous gas 1. The patient reports sudden onset pain this evening. The patient says that the pain is right-sided and mid abdomen. The CT scan shows pneumatosis of the ascending and transverse colon with extensive portal venous gas. There is gas in the mesentery and portal system. There is a very large amount of atherosclerosis of the vessels in the abdomen. On the CT the small bowel appears normal as does the descending colon. 2. I believe the patient has a localized thrombosis of the vessels to the right and transverse colon. There is no pneumatosis in the mesentery of the small bowel or left colon. I explained this to the patient in detail. I believe the patient warrants laparotomy and possible bowel resection. I explained to the patient that given his steroids and poor blood supply would not perform an anastomosis that he would have an end ileostomy and mucous fistula. I explained that there is a possibility of finding more extensive bowel on laparotomy and this may be terminal disease. 3. The patient has several comorbidities including COPD, CHF, dialysis dependent renal failure, CAD. The patient is on steroids and Plavix and aspirin. I expand the risks of laparotomy to the patient. I expand the risks including but not limited to bleeding, infection, injury to surrounding bowel or organs, heart attack, stroke. I explained that with his comorbidities he has a very high risk of morbidity and mortality with the surgery but the alternative would be hospice and palliation. I explained that without surgery he would likely from the ischemic bowel and sepsis. I did offer the patient transfer to a tertiary care center as well as hospice but the patient would like surgery. I also explained that the patient will be placed in the ICU likely on a ventilator after surgery. The patient does agree to proceed. He understands that there is a high risk of mortality and that he would be on a ventilator after surgery. 4. I will start the patient on Zosyn and taken to surgery emergently. Patient will be placed in the ICU after surgery. Armen Henderson MD Pager: [facility] [address] [place] [address] Office:
--- NOTE | 2018-12-06 04:11 | HP.PCM_ITS ---
Problem List (1) Colonic ischemia Status: Acute History of Present Illness Date of Admission: 12/06/18 The patient is a 68 year old M who presented to the emergency room with abdominal pain this evening. The patient reports that it started 3 hours before arrival. Patient reports that he did vomit. He has been having constipation. He says the pain is right-sided and middle of the abdomen. He says it is 9 out of 10. He denies any fevers or chills. He was recently admitted for COPD. Past Medical History Past Medical History (Chronic Problems): Chronic Problems (Last Reviewed 11/26/18 @ 18:35 by Chris Stark DO) Chronic renal failure, stage 5 (Chronic) ESRD (end stage renal disease) (Chronic) History of non-ST elevation myocardial infarction (NSTEMI) (Chronic 01/21/11) History of left heart catheterization (Chronic 01/21/11) 10/13/[address] Barrientos @ [facility]:Per Dr. Jiménez @ [facility]: CABG recommended History of right and left heart catheterization (Chronic 05/24/18) Patent NICHOLAS to LAD, SVG to 1st OM and SVG to RCA. Elevated right heart pressures, significant Diastolic dysfunction per cath done @ [facility], Dr. Barrientos Stented coronary artery (Chronic) 2003, JASON to circumflex ; 10/13/2009 tsfer from [facility] to [facility], total of 5 bare metal stents to RCA per Dr. Barrientos @ [facility]: 3.5 X 18 Apprentice Funeral Director, followed distally by 3.0 X12 Apprentice Funeral Director to distal RCA;3.5 X 15 Apprentice Funeral Director, followed proximally by 4.0 X 18 Apprentice Funeral Director to Mid RCA; 4.0 X 18 Apprentice Funeral Director to Proximal RCA S/P CABG x 3 (Chronic 01/26/11) [facility] per Dr. Osito Hernandez: NICHOLAS to LAD, reverse SVG to OMbranch of CX, reverse SVG to PDA of RCA. PDA endarterectomy. Status post peripheral artery angioplasty with insertion of stent (Chronic ~2010) Right common iliac, [facility] Atherosclerotic heart disease of [place] coronary artery without angina pectoris (Chronic) 2003, JASON to circumflex ; 10/10/2009 tsfer from [facility] to [facility], total of 5 bare metal stents to RCA; CABG X [address] [facility] 01/31/2011 (critical left main and restenosis of RCA stents) Diastolic CHF (Chronic) HLD (hyperlipidemia) (Chronic) HTN (hypertension) (Chronic) PAD (peripheral artery disease) (Chronic) COPD (chronic obstructive pulmonary disease) (Chronic) Tobacco dependence (Chronic) Anemia (Chronic) BPH (benign prostatic hyperplasia) (Chronic) Medical History: Medical History (Last Reviewed 11/26/18 @ 18:35 by Chrsi Stark DO) History of non-ST elevation myocardial infarction (NSTEMI) (Chronic) Onset Date: 01/21/11 I25.2 Atherosclerotic heart disease of [place] coronary artery without angina pectoris (Chronic) I25.10 2003, JASON to circumflex ; 10/10/2009 tsfer from [facility] to [facility], total of 5 bare metal stents to RCA; CABG X [address] [facility] 01/31/2011 (critical left main and restenosis of RCA stents) Acute renal failure superimposed on chronic kidney disease (Resolved) N17.9, N18.9 Diastolic CHF (Chronic) I50.30 HLD (hyperlipidemia) (Chronic) E78.5 HTN (hypertension) (Chronic) I10 PAD (peripheral artery disease) (Chronic) I73.9 COPD (chronic obstructive pulmonary disease) (Chronic) J44.9 Tobacco dependence (Chronic) F17.200 CKD (chronic kidney disease) (Inactive) N18.9 Leukocytosis (Resolved) D72.829 Anemia (Chronic) D64.9 BPH (benign prostatic hyperplasia) (Chronic) N40.0 Allergies irbesartan [From Avapro] Allergy (Severe, Verified 12/06/18 01:12) Blisters zolpidem [From Ambien] Adverse Reaction (Severe, Verified 12/06/18 01:12) made me go crazy, memory loss Home Medications: Ambulatory Orders Medication Instructions Recorded Albuterol Sulfate 2.5 mg IH Q4H PRN 11/13/18 Alprazolam [Xanax] 0.5 mg PO TID PRN 11/13/18 Aspirin E.C. [Ecotrin] 81 mg PO DAILY@0800 11/13/18 Clopidogrel Bisulfate [Plavix] 75 mg PO DAILY 11/13/18 Ferric Citrate [Auryxia] 210 mg PO BID 11/13/18 Lactulose 30 gm PO QODAY 11/13/18 Prednisone 10 mg PO DAILY 11/13/18 Ropinirole HCl [Requip] 1 mg PO QHS 11/13/18 Rosuvastatin Calcium [Crestor] 40 mg PO QHS 11/13/18 Tamsulosin HCl [Flomax] 0.8 mg PO DAILY 11/13/18 hydrALAZINE [Apresoline] 25 mg PO BID 11/13/18 Metoprolol(XL)Succ [Toprol Xl 100 mg PO BID 12/06/18 (Beta Kadi)] Surgical History: Surgical History (Last Reviewed 11/26/18 @ 18:35 by Chris Stark DO) History of left heart catheterization (Chronic) Onset Date: 01/21/11 Z98.890 10/13/[address] Barrientos @ [facility]:Per Dr. Jiménez @ [facility]: CABG recommended S/P dialysis catheter insertion (Resolved) Onset Date: 05/22/18 Z95.828, Z99.2 Right internal jugular access per Dr. Demian Lua History of right and left heart catheterization (Chronic) Onset Date: 05/24/18 Z98.890 Patent NICHOLAS to LAD, SVG to 1st OM and SVG to RCA. Elevated right heart pressures, significant Diastolic dysfunction [facility] History of thoracentesis (Resolved) Onset Date: 05/22/18 Z98.890 1700 cc removed from right side Stented coronary artery (Chronic) Z95.5 2004, JASON to circumflex ; 10/13/2009 tsfer from [facility] to [facility], total of 5 bare metal stents to RCA per Dr. Barrientos @ [facility]: 3.5 X 18 Apprentice Funeral Director, followed distally by 3.0 X12 Apprentice Funeral Director to distal RCA;3.5 X 15 Apprentice Funeral Director, followed proximally by 4.0 X 18 Apprentice Funeral Director to Mid RCA; 4.0 X 18 Apprentice Funeral Director to Proximal RCA S/P CABG x 3 (Chronic) Onset Date: 01/26/11 Z95.1 [facility] per Dr. Osito Hernandez: NICHOLAS to LAD, reverse SVG to OMbranch of CX, reverse SVG to PDA of RCA. PDA endarterectomy. history of surgically created arteriovenous fistula s/p fistulogram Onset Date: ~09/28/18 Surgical History: coronary bypass surgery, tonsillectomy Smoking Status: Current every day smoker - *Family History Maternal Family History: Family History (Last Reviewed 11/13/18 @ 12:56 by Manoj Christensen MD) Father CAD (coronary artery disease) Hypertension Kidney disease CVA (cerebral vascular accident) Other Cancer History Items: Heart Disease Paternal Family History: Family History (Last Reviewed 11/13/18 @ 12:56 by Manoj Christensen MD) Father CAD (coronary artery disease) Hypertension Kidney disease CVA (cerebral vascular accident) Other Cancer History Items: Heart Disease Review of Systems Constitutional: Denies: Anorexia, Fever HEENT: Denies: Difficulty Hearing Cardiovascular: Denies: Chest Pain Respiratory: Reports: Shortness of Breath Gastrointestinal: Reports: Abdominal Pain, Constipation, Nausea, Vomiting Genitourinary: Reports: - - Patient is dialysis dependent. Denies: Dysuria Musculoskeletal: Denies: Joint Tenderness Skin: Denies: Dryness Neurological: Denies: Confusion Hematologic/ Lymphatic: Reports: Easy Bruising, Easy Bleeding VTE Information - Inpt Only VTE Present on Admission: No VTE Mechan Device Prophylaxis: SCD's Patient Problems: Active and Suspected Problems (Last Reviewed 11/26/18 @ 18:35 by Chris Stark DO) Colonic ischemia (Acute) - Physical Exam General: Alert, Oriented x3 HEENT: Atraumatic Neck: No JVD Lungs: Short of Breath Cardiovascular: Regular rate, Regular Rhythm Abdomen: Soft, Distended, Tender Extremities: No clubbing Skin: No rashes Neurological: Cranial nerves II-XII grossly intact Psych/Mental Status: Normal Affect Vital Signs Temp Pulse Resp BP Pulse Ox 98.1 F 79 21 H 169/71 H 98 12/06/18 03:10 12/06/18 03:10 12/06/18 03:10 12/06/18 03:10 12/06/18 03:10 Oxygen Flow Rate (L/min) 4 Oxygen Delivery Method Nasal Cannula Weight: 178 lb 9.191 oz Body Mass Index (BMI) 27.1 Finger Stick Blood Glucose 200 Laboratory Tests Past 24 Hrs 12/06/18 12/06/18 12/06/18 01:26 01:26 01:26 WBC Cancelled Corrected WBC Cancelled RBC Cancelled Hgb Cancelled Hct Cancelled MCV Cancelled MCH Cancelled MCHC Cancelled RDW Cancelled RDW Differential Cancelled Plt Count Cancelled MPV Cancelled Immature Gran % (Auto) Cancelled Neut % (Auto) Cancelled Lymph % (Auto) Cancelled Schoolcraft % (Auto) Cancelled Eos % (Auto) Cancelled Baso % (Auto) Cancelled Absolute Neuts (auto) Cancelled Absolute Lymphs (auto) Cancelled Total Counted Cancelled Neutrophils % (Manual) Cancelled Band Neutrophils % Cancelled Lymphocytes % (Manual) Cancelled Monocytes % (Manual) Cancelled Eosinophils % (Manual) Cancelled Basophils % (Manual) Cancelled Metamyelocytes % Cancelled Myelocytes % Cancelled Promyelocytes % Cancelled Blast Cells % Cancelled Plasma Cell % (Manual) Cancelled Other Cells % Cancelled Nucleated RBCs/100 WBC Cancelled Differential Comment Cancelled Diff Path Review Cancelled Hypersegmented Neuts Cancelled Atypical Lymphocytes Cancelled Reactive Lymphocytes Cancelled Smudge Cells Cancelled Toxic Granulation Cancelled Dohle Bodies Cancelled Jer Rods Cancelled Platelet Estimate Cancelled Plt Morphology Comment Cancelled RBC Morphology Cancelled Polychromasia Cancelled Hypochromasia Cancelled Poikilocytosis Cancelled Basophilic Stippling Cancelled Anisocytosis Cancelled Microcytosis Cancelled Macrocytosis Cancelled Spherocytes Cancelled Sickle Cells Cancelled Target Cells Cancelled Tear Drop Cells Cancelled Ovalocytes Cancelled Stomatocytes Cancelled Somers-[place]cy[place] Bodies Cancelled [place] Cells Cancelled Bite Cells Cancelled Acanthocytes (Spur) Cancelled Rouleaux Cancelled Schistocytes Cancelled Sodium 128 L Potassium 4.7 Chloride 90 L Carbon Dioxide 20.0 L Anion Gap 18 H BUN 75 H Creatinine 6.68 H Estim Creat Clear Calc 10.38 Est GFR (MDRD) Af Amer 11 L Est GFR (MDRD) Non-Af 9 L BUN/Creatinine Ratio 11.2 Glucose 233 H Lactic Acid Calcium 8.0 L Total Bilirubin 0.60 Direct Bilirubin 0.11 AST 40 H ALT 21 Alkaline Phosphatase 74 Total Protein 6.9 Albumin 3.2 Globulin 3.7 Lipase 346 12/06/18 12/06/18 01:59 03:00 WBC 11.8 H Corrected WBC RBC 2.80 L Hgb 9.0 L Hct 28.9 L MCV 103.2 H MCH 32.1 H MCHC 31.1 L RDW 18.2 H RDW Differential 68.0 H Plt Count 154 MPV 10.0 Immature Gran % (Auto) 0.300 Neut % (Auto) 96.8 H Lymph % (Auto) 2.5 L School[place] % (Auto) 0.3 Eos % (Auto) 0.1 Baso % (Auto) 0.0 Absolute Neuts (auto) 11.4 H Absolute Lymphs (auto) 0.30 L Total Counted Not Reportable Neutrophils % (Manual) Band Neutrophils % Lymphocytes % (Manual) Monocytes % (Manual) Eosinophils % (Manual) Basophils % (Manual) Metamyelocytes % Myelocytes % Promyelocytes % Blast Cells % Plasma Cell % (Manual) Other Cells % Nucleated RBCs/100 WBC Differential Comment SCANNED Diff Path Review Hypersegmented Neuts Atypical Lymphocytes Reactive Lymphocytes Smudge Cells Toxic Granulation Dohle Bodies Jer Rods Platelet Estimate ADEQUATE Plt Morphology Comment RBC Morphology Polychromasia Hypochromasia Poikilocytosis Basophilic Stippling Anisocytosis 2+ Microcytosis Macrocytosis 1+ Spherocytes Sickle Cells Target Cells Tear Drop Cells RARE Ovalocytes Stomatocytes Somers-[place] Bodies Zach Cells Bite Cells Acanthocytes (Spur) Rouleaux Schistocytes Sodium Potassium Chloride Carbon Dioxide Anion Gap BUN Creatinine Estim Creat Clear Calc Est GFR (MDRD) Af Amer Est GFR (MDRD) Non-Af BUN/Creatinine Ratio Glucose Lactic Acid 1.4 Calcium Total Bilirubin Direct Bilirubin AST ALT Alkaline Phosphatase Total Protein Albumin Globulin Lipase Clinical Impression(s) from Imaging Studies Chest X-Ray 12/06/18 01:23 IMPRESSION: 1. Worsening congestive heart failure. 2. Stable small left pleural effusion. Electronically Signed: Robert García MD at 2:31 EST Tel , Service support , Abdomen/Pelvis CT 12/06/18 01:36 IMPRESSION: 1. Pneumatosis of the cecum and descending colon with extensive portal venous gas throughout the mesenteric venous channels and into the periphery of the liver parenchyma. 2. Bibasilar airspace infiltration, either representing confluent dependent edema or bibasilar pneumonia. 3. Trace bilateral pleural effusions. 4. Left renal atrophy 5. Simple appearing cyst off of the lateral midpole of the left kidney. Electronically Signed: Robert García MD at 2:41 EST Tel , Service support , ADDENDUM: 12/06/18 0253 IMPRESSION: 1. Pneumatosis of the cecum and descending colon with extensive portal venous gas throughout the mesenteric venous channels and into the periphery of the liver parenchyma. 2. Bibasilar airspace infiltration, either representing confluent dependent edema or bibasilar pneumonia. 3. Trace bilateral pleural effusions. 4. Left renal atrophy 5. Simple appearing cyst off of the lateral midpole of the left kidney. N.B. : The above information has been verbally conveyed by Robert García MD to Andreia Jeffery MD, MD, on 12/06/2018 02:45:55 (ET). Electronically Signed: Robert García MD at 2:41 EST Tel , Service support , Assessment/Plan All Active Problems (Last Reviewed 11/26/18 @ 18:35 by Chris Stark DO) Acute respiratory insufficiency (Acute) (HFpEF) heart failure with preserved ejection fraction (Acute) Hyperkalemia (Acute) Colonic ischemia (Acute) HCAP (healthcare-associated pneumonia) (Acute) Abnormal cardiac enzyme level (Acute) DAI (acute kidney injury) (Resolved) Hypertensive emergency (Resolved) Problem with dialysis access (Resolved) S/P dialysis catheter insertion (Resolved 05/22/18) History of thoracentesis (Resolved 05/22/18) Acute renal failure superimposed on chronic kidney disease (Resolved) Acute respiratory failure with hypoxia (Acute) Leukocytosis (Resolved) 68-year-old male with portal venous gas 1. The patient reports sudden onset pain this evening. The patient says that the pain is right-sided and mid abdomen. The CT scan shows pneumatosis of the ascending and transverse colon with extensive portal venous gas. There is gas in the mesentery and portal system. There is a very large amount of atherosclerosis of the vessels in the abdomen. On the CT the small bowel appear s normal as does the descending colon. 2. I believe the patient has a localized thrombosis of the vessels to the right and transverse colon. There is no pneumatosis in the mesentery of the small ramses wel or left colon. I explained this to the patient in detail. I believe the patient warrants laparotomy and possible bowel resection. I explained to the patient that given his steroids and poor blood supply would not perform an anastomosis that he would have an end ileostomy and mucous fistula. I explained that there is a possibility of finding more extensive bowel on laparotomy and this may be terminal disease. 3. The patient has several comorbidities including COPD, CHF, dialysis dependent renal failure, CAD. The patient is on steroids and Plavix and aspirin. I expand the risks of laparotomy to the patient. I expand the risks including but not limited to bleeding, infection, injury to surrounding bowel or organs, heart attack, stroke. I explained that with his comorbidities he has a very high risk of morbidity and mortality with the surgery but the alternative would be hospice and palliation. I explained that without surgery he would likely from the ischemic bowel and sepsis. I did offer the patient transfer to a tertiary care center as well as hospice but the patient would like surgery. I also explained that the patient will be placed in the ICU likely on a ventilator after surgery. The patient does agree to proceed. He understands that there is a high risk of mortality and that he would be on a ventilator after surgery. 4. I will start the patient on Zosyn and taken to surgery emergently. Patient will be placed in the ICU after surgery. Armen Henderson MD Pager: [facility] [address] [place] [address] [address] [place] [address] Office:
[2018-12-06] MEDS: fentaNYL 100 MCG/2 ML Ampul 50 MCG IV (04:55)
--- NOTE | 2018-12-06 05:30 | COL_PTH ---
PATIENT: ANGELINA FORREST Jr. LOC: PCU U#:[id number] AGE/SX: 68/M ROOM: [facility] RE12/06/[address]: Dr. Manoj Christensen MD : [id number] BED: 1 DIS: 12/12/2018 SPEC #: [id number] RECD: 12/06/18 08:19 STATUS: NILAM PHILLIP #: [id number] SHANIA: 12/06/18 05:[address]: Armen Henderson DEPT: SURGICAL PATHOLOGY RECD BY: Dae Nicole ENTERED: 12/06/18 09:59 SP TYPE: COLON OTHR DR: MD Tania Graham, TIRE SERVICE TECHNICIAN-C Tissues: Colon, NOS Procedures: Surgery Specimen Level V HEADER OPERATION: Exploratory laparotomy, resection ascending and transverse colon PRE-OP DIAGNOSIS: Ischemic colon TISSUE SUBMITTED: Ascending and transverse colon MICROSCOPIC DIAGNOSIS Ascending and transverse colon, colectomy: Segment of colon, small intestine including ileocecal valve with mucosal ischemic changes. Proximal resection margin with focal ischemic changes. Detached piece of small bowel with mucosal ischemic changes. Appendix, fibrous luminal obliteration at the tip. One pericolonic lymph node with reactive changes and acute inflammation. SJ:patrick 12/08/18 MICROSCOPIC DESCRIPTION Slides are reviewed. GROSS DESCRIPTION Received in fixative is one container labeled with the patient's name and designated ascending and transverse colon. The specimen consists of a 52 cm segment of large bowel with attached 14.5 cm segment of small bowel and attached 7 cm segment of appendix that has a maximal diameter of 0.5 cm. The bowel segment from the ileocecal valve to a distance of 29.5 cm is dusky ortez in color. The ileocecal valve appears to be involved by the process. The distal approximately 13 cm segment of large bowel does not appear to be involved by the process. The small bowel is free of the process. Also present free in the container is an irregular fragment of stapled bowel mucosa measuring 3 x 0.8 cm. Also present free in the container is an unremarkable fragment of ramires skin measuring 1 x 0.8 x 0.5 cm. The involved area of dusky ortez mucosa shows focal cobblestoning and possible ulcers. No mass lesions are identified. The attached fibrofatty tissue contains a number of grossly unremarkable lymph nodes. Mechanic Welder Truck Driver sections are submitted as follows: 1 - proximal and distal mucosal margins of excision, 2 - ileocecal valve, 3 - appendix, 4 - fragment of bowel free in container, 5 - skin and attached soft tissue, 6-8 - registration representative sections of involved section of large bowel, 9 - registration representative section of uninvolved section of large bowel, 10 - registration representative lymph nodes. / AM:patrick 12/07/18 TC:5 CPT: 45839
--- NOTE | 2018-12-06 08:29 | RAD_ITS ---
STUDY: X-RAY CHEST REASON FOR EXAM: Male, 68 years old. Nasogastric tube placement. TECHNIQUE: Single AP portable view of the chest. COMPARISON: Comparison is made with prior study dated December 06, 2014. FINDINGS: An endotracheal tube is in situ. The tip is at 6.5 cm proximal to the iliana. A nasogastric tube is seen. The tip is in the body of the stomach just distal to the gastroesophageal junction. A right-sided double-lumen catheter is seen with the tip at the junction of the superior vena cava and right atrium. Bilateral central lines are seen in good position. Left lower lobe atelectasis and/or infiltrate with small left pleural effusion. Central vascular congestion. Sternal cerclage wires and vascular clips are present from a prior sternotomy and coronary artery bypass graft procedure (CABG). Normal mediastinum and justyn. Normal visualized pulmonary arteries. There is atherosclerotic calcification of the aortic arch with tortuosity. There are diffuse degenerative changes of the visualized thoracic spine. Normal visualized ribs, clavicles, and shoulders. There is no demonstrated abnormality of the visualized soft tissue structures of the upper abdomen. RAD/Chest 1 View (Portable) IMPRESSION: The tip of the endotracheal tube is at 6.5 sinus proximal to the iliana. The tip of the nasogastric tube is in the body of the stomach just distal to the gastroesophageal junction. Left basilar atelectasis and/or infiltrate with small left effusion. Central vascular congestion. Electronically Signed: Dveen Hensley MD at 9:46 EST , Service support ,
--- NOTE | 2018-12-06 08:29 | EKGRS_ITS ---
Test Reason : POST OP Blood Pressure : / mmHG Vent. Rate : 075 BPM Atrial Rate : 075 BPM P-R Int : 204 ms QRS Dur : 092 ms QT Int : 420 ms P-R-T Axes : 074 072 145 degrees QTc Int : 469 ms Normal sinus rhythm ST & T wave abnormality, consider lateral ischemia Prolonged QT Abnormal ECG When compared with ECG of 06-DEC-2018 01:17, MANUAL COMPARISON REQUIRED, DATA IS UNCONFIRMED Confirmed by VIKY MONTENEGRO, JOS ([id number]), newspaper editor JAVON GONZALEZ ([id number]) on 12/11/2018 5:30:17 PM Referred By: Armen Henderson Confirmed By:JOS SALMON MD
[2018-12-06] MEDS: Propofol 10MG/Ml 1,000 MG/100 ML Bottle 4.86 MG CONT INF ×2 (08:30→18:10)
[2018-12-06 09:13] LABS: CPK Total, Creatine Kinase 92 U/L (39-308); Triglycerides 184 mg/dL
--- NOTE | 2018-12-06 09:32 | PCM.CONS.R ---
Consultation - Renal PCP/ Referring MD: Requesting physician: [] Primary care physician: SEUN Poe - History of Present Illness History of Present Illness: The patient is a 68 year old M past medical history of end-stage renal disease on Tuesday hemodialysis schedule . Patient presented with acute abdominal pain with vomiting . CAT scan shows pneumatosis of the ascending and transverse colon . Patient had colectomy last night . Currently in ICU , intubated and sedated . Last hemodialysis schedule was on Tuesday . Review of system : Unobtainable due to patient's current condition [] - Allergies Allergies: Allergies irbesartan [From Avapro] Allergy (Severe, Verified 12/06/18 01:12) Blisters zolpidem [From Ambien] Adverse Reaction (Severe, Verified 12/06/18 01:12) made me go crazy, memory loss - Current Medications Current Medications: Current Medications Albuterol Sulfate (Ventolin Aerosols) 2.5 mg INHALATION Q2H PRN PRN PRN Reason: SOB &/OR WHEEZING Albuterol/Ipratropium (Duoneb) 3 ml INHALATION Q4H.RT JAIME Chlorhexidine Gluconate () 15 ml PO BID JAIME Hydrocortisone Sodium Succinate (Solu-Cortef) 100 mg IV Q8 JAIME Famotidine 20 mg/ Sodium (Chloride) 10 mls @ 300 mls/hr IV Q24 JAIME Fentanyl () 100 mls @ 2.5 mls/hr IV .Q40H JAIME Propofol (Diprivan) 1,000 mg in 100 mls @ 4.86 mls/hr CONT INF .Q12H JAIME Sodium Chloride () 250 mls @ 15 mls/hr IV .[id number] PRN PRN Reason: SALINE FLUSH Sodium Chloride () 250 mls @ 15 mls/hr IV .[id number] PRN PRN Reason: SALINE FLUSH Piperacillin Sod/Tazobactam Sod (Zosyn) 3.375 gm in 50 mls @ 12.5 mls/hr IV Q8 JAIME Pantoprazole Sodium 40 mg/ (Sodium Chloride) 110 mls @ 330 mls/hr IV Q24 JAIME Sodium Chloride () 5 - 15 ml IV UD PRN PRN Reason: SALINE FLUSH - Past Medical History Past Medical History (Chronic Problems): Chronic Problems (Last Reviewed 11/26/18 @ 18:35 by Chris Stark DO) Chronic renal failure, stage 5 (Chronic) ESRD (end stage renal disease) (Chronic) History of non-ST elevation myocardial infarction (NSTEMI) (Chronic 01/21/11) History of left heart catheterization (Chronic 01/21/11) 10/13/[address] Barrientos @ [facility]:Per Dr. Jiménez @ [facility]: CABG recommended History of right and left heart catheterization (Chronic 05/24/18) Patent NICHOLAS to LAD, SVG to 1st OM and SVG to RCA. Elevated right heart pressures, significant Diastolic dysfunction per cath done @ [facility], Dr. Barrientos Stented coronary artery (Chronic) 2003, JASON to circumflex ; 10/13/2009 tsfer from [facility] to [facility], total of 5 bare metal stents to RCA per Dr. Barrientos @ [facility]: 3.5 X 18 [employer], followed distally by 3.0 X12 [employer] to distal RCA;3.5 X 15 [employer], followed proximally by 4.0 X 18 [employer] to Mid RCA; 4.0 X 18 [employer] to Proximal RCA S/P CABG x 3 (Chronic 01/26/11) [facility] per Dr. Osito Hernandez: NICHOLAS to LAD, reverse SVG to OMbranch of CX, reverse SVG to PDA of RCA. PDA endarterectomy. Status post peripheral artery angioplasty with insertion of stent (Chronic ~2010) Right common iliac, [facility] Atherosclerotic heart disease of [place] coronary artery without angina pectoris (Chronic) 2003, JASON to circumflex ; 10/10/2009 tsfer from [facility] to [facility], total of 5 bare metal stents to RCA; CABG X 3 vessels @ [facility] 01/31/2011 (critical left main and restenosis of RCA stents) Diastolic CHF (Chronic) HLD (hyperlipidemia) (Chronic) HTN (hypertension) (Chronic) PAD (peripheral artery disease) (Chronic) COPD (chronic obstructive pulmonary disease) (Chronic) Tobacco dependence (Chronic) Anemia (Chronic) BPH (benign prostatic hyperplasia) (Chronic) - Past Surgical History Surgical History: coronary bypass surgery, tonsillectomy - Social History Smoking Status: Current every day smoker - Family History Maternal Family History: Family History (Last Reviewed 11/13/18 @ 12:56 by Manoj Christensen MD) Father CAD (coronary artery disease) Hypertension Kidney disease CVA (cerebral vascular accident) Other Cancer History Items: Heart Disease Paternal Family History: Family History (Last Reviewed 11/13/18 @ 12:56 by Manoj Christensen MD) Father CAD (coronary artery disease) Hypertension Kidney disease CVA (cerebral vascular accident) Other Cancer History Items: Heart Disease Patient Problems: Active and Suspected Problems (Last Reviewed 11/26/18 @ 18:35 by Chris Stark DO) Colonic ischemia (Acute) - Physical Exam General: - - Sedated and intubated HEENT: Atraumatic Oral: Moist Mucosa Neck: Supple, No JVD Lungs: - - Equal air entry, no wheezing or crackles Abdomen: Bowel Sounds Not Present, Distended Extremities: No clubbing, No cyanosis, No edema Skin: No rashes Lymphatic: No Cervical, Supraclavicular, or Inguinal Adenopathy Neurological: - - Sedated Vital Signs Temp Pulse Resp BP Pulse Ox 97.5 F L 80 27 H 135/76 H 97 12/06/18 04:36 12/06/18 08:35 12/06/18 08:35 12/06/18 04:56 12/06/18 08:35 Oxygen Flow Rate (L/min) 3 Oxygen Delivery Method Nasal Cannula Weight: 78.7 kg Body Mass Index (BMI) 26.4 Finger Stick Blood Glucose 200 Laboratory Tests Past 24 Hrs 12/06/18 12/06/18 12/06/18 01:26 01:26 01:26 WBC Cancelled Corrected WBC Cancelled RBC Cancelled Hgb Cancelled Hct Cancelled MCV Cancelled MCH Cancelled MCHC Cancelled RDW Cancelled RDW Differential Cancelled Plt Count Cancelled MPV Cancelled Immature Gran % (Auto) Cancelled Neut % (Auto) Cancelled Lymph % (Auto) Cancelled [place] % (Auto) Cancelled Eos % (Auto) Cancelled Baso % (Auto) Cancelled Absolute Neuts (auto) Cancelled Absolute Lymphs (auto) Cancelled Total Counted Cancelled Neutrophils % (Manual) Cancelled Band Neutrophils % Cancelled Lymphocytes % (Manual) Cancelled Monocytes % (Manual) Cancelled Eosinophils % (Manual) Cancelled Basophils % (Manual) Cancelled Metamyelocytes % Cancelled Myelocytes % Cancelled Promyelocytes % Cancelled Blast Cells % Cancelled Plasma Cell % (Manual) Cancelled Other Cells % Cancelled Nucleated RBCs/100 WBC Cancelled Differential Comment Cancelled Diff Path Review Cancelled Hypersegmented Neuts Cancelled Atypical Lymphocytes Cancelled Reactive Lymphocytes Cancelled Smudge Cells Cancelled Toxic Granulation Cancelled Dohle Bodies Cancelled Jer Rods Cancelled Platelet Estimate Cancelled Plt Morphology Comment Cancelled RBC Morphology Cancelled Polychromasia Cancelled Hypochromasia Cancelled Poikilocytosis Cancelled Basophilic Stippling Cancelled Anisocytosis Cancelled Microcytosis Cancelled Macrocytosis Cancelled Spherocytes Cancelled Sickle Cells Cancelled Target Cells Cancelled Tear Drop Cells Cancelled Ovalocytes Cancelled Stomatocytes Cancelled [place] Bodies Cancelled Rumsey Cells Cancelled Bite Cells Cancelled Acanthocytes (Spur) Cancelled Rouleaux Cancelled Schistocytes Cancelled Sodium 128 L Potassium 4.7 Chloride 90 L Carbon Dioxide 20.0 L Anion Gap 18 H BUN 75 H Creatinine 6.68 H Estim Creat Clear Calc 10.38 Est GFR (MDRD) Af Amer 11 L Est GFR (MDRD) Non-Af 9 L BUN/Creatinine Ratio 11.2 Glucose 233 H Lactic Acid Calcium 8.0 L Total Bilirubin 0.60 Direct Bilirubin 0.11 AST 40 H ALT 21 Alkaline Phosphatase 74 Total Creatine Kinase Total Protein 6.9 Albumin 3.2 Globulin 3.7 Triglycerides Lipase 346 Blood Type Antibody Screen 12/06/18 12/06/18 12/06/18 01:26 01:59 03:00 WBC 11.8 H Corrected WBC RBC 2.80 L Hgb 9.0 L Hct 28.9 L MCV 103.2 H MCH 32.1 H MCHC 31.1 L RDW 18.2 H RDW Differential 68.0 H Plt Count 154 MPV 10.0 Immature Gran % (Auto) 0.300 Neut % (Auto) 96.8 H Lymph % (Auto) 2.5 L [place] % (Auto) 0.3 Eos % (Auto) 0.1 Baso % (Auto) 0.0 Absolute Neuts (auto) 11.4 H Absolute Lymphs (auto) 0.30 L Total Counted Not Reportable Neutrophils % (Manual) Band Neutrophils % Lymphocytes % (Manual) Monocytes % (Manual) Eosinophils % (Manual) Basophils % (Manual) Metamyelocytes % Myelocytes % Promyelocytes % Blast Cells % Plasma Cell % (Manual) Other Cells % Nucleated RBCs/100 WBC Differential Comment SCANNED Diff Path Review Hypersegmented Neuts Atypical Lymphocytes Reactive Lymphocytes Smudge Cells Toxic Granulation Dohle Bodies Jer Rods Platelet Estimate ADEQUATE Plt Morphology Comment RBC Morphology Polychromasia Hypochromasia Poikilocytosis Basophilic Stippling Anisocytosis 2+ Microcytosis Macrocytosis 1+ Spherocytes Sickle Cells Target Cells Tear Drop Cells RARE Ovalocytes Stomatocytes [place] Bodies Rumsey Cells Bite Cells Acanthocytes (Spur) Rouleaux Schistocytes Sodium Potassium Chloride Carbon Dioxide Anion Gap BUN Creatinine Estim Creat Clear Calc Est GFR (MDRD) Af Amer Est GFR (MDRD) Non-Af BUN/Creatinine Ratio Glucose Lactic Acid 1.4 Calcium Total Bilirubin Direct Bilirubin AST ALT Alkaline Phosphatase Total Creatine Kinase 92 Total Protein Albumin Globulin Triglycerides 184 Lipase Blood Type Antibody Screen 12/06/18 05:08 WBC Corrected WBC RBC Hgb Hct MCV MCH MCHC RDW RDW Differential Plt Count MPV Immature Gran % (Auto) Neut % (Auto) Lymph % (Auto) [place] % (Auto) Eos % (Auto) Baso % (Auto) Absolute Neuts (auto) Absolute Lymphs (auto) Total Counted Neutrophils % (Manual) Band Neutrophils % Lymphocytes % (Manual) Monocytes % (Manual) Eosinophils % (Manual) Basophils % (Manual) Metamyelocytes % Myelocytes % Promyelocytes % Blast Cells % Plasma Cell % (Manual) Other Cells % Nucleated RBCs/100 WBC Differential Comment Diff Path Review Hypersegmented Neuts Atypical Lymphocytes Reactive Lymphocytes Smudge Cells Toxic Granulation Dohle Bodies Jer Rods Platelet Estimate Plt Morphology Comment RBC Morphology Polychromasia Hypochromasia Poikilocytosis Basophilic Stippling Anisocytosis Microcytosis Macrocytosis Spherocytes Sickle Cells Target Cells Tear Drop Cells Ovalocytes Stomatocytes [place] Bodies Rumsey Cells Bite Cells Acanthocytes (Spur) Rouleaux Schistocytes Sodium Potassium Chloride Carbon Dioxide Anion Gap BUN Creatinine Estim Creat Clear Calc Est GFR (MDRD) Af Amer Est GFR (MDRD) Non-Af BUN/Creatinine Ratio Glucose Lactic Acid Calcium Total Bilirubin Direct Bilirubin AST ALT Alkaline Phosphatase Total Creatine Kinase Total Protein Albumin Globulin Triglycerides Lipase Blood Type A NEGATIVE Antibody Screen NEGATIVE Assessment/Plan All Active Problems (Last Reviewed 11/26/18 @ 18:35 by Chris Stark DO) Acute respiratory insufficiency (Acute) (HFpEF) heart failure with preserved ejection fraction (Acute) Hyperkalemia (Acute) Colonic ischemia (Acute) HCAP (healthcare-associated pneumonia) (Acute) Abnormal cardiac enzyme level (Acute) DAI (acute kidney injury) (Resolved) Hypertensive emergency (Resolved) Problem with dialysis access (Resolved) S/P dialysis catheter insertion (Resolved 05/22/18) History of thoracentesis (Resolved 05/22/18) Acute renal failure superimposed on chronic kidney disease (Resolved) Acute respiratory failure with hypoxia (Acute) Leukocytosis (Resolved) 1-end-stage renal disease on Tuesday hemodialysis schedule. Patient goes to [facility]. Last hemodialysis was on December 04. Will arrange hemodialysis session as per the chronic order. 2-anemia: Continue RITCHIE as per the chronic order. 3-pneumatosis of the colon with ischemic bowel. Status post colectomy. Will defer the management to the surgery team. 4-respiratory failure. On vent support as per the ICU team. Renal team will continue to follow. Please call with any question
--- NOTE | 2018-12-06 09:33 | OP.PCM_ITS ---
Problem List (1) Colonic ischemia Status: Acute Report of Operation Date of Procedure: 12/06/18 Pre-Operative Diagnosis: Ischemic right colon Post-Operative Diagnosis: Ischemic right and transverse colon Surgery/Procedure Performed:: Exploratory laparotomy with resection of right and transverse colon. Creation of end ileostomy and colonic mucous fistula Type of Anesthesia:: General Description of Procedure: The patient was brought back to the operating room and general anesthesia was induced. The patient's abdomen was prepped and draped in the usual sterile fashion. Next an incision was made in the midline just above the umbilicus. This was deepened to the fascia and the fascia was elevated and incised. A finger was placed in the abdomen and a small mini laparotomy was created using electrocautery. Next using a retractor the right colon was identified and it appeared ischemic. The rest of the bowel appeared viable. The laparotomy was extended superiorly and inferiorly and a wound retractor was placed into the abdomen. Next the right colon was mobilized from its lateral attachments and the hepatic flexure was released. The lesser sac was entered and the transverse colon was mobilized as well per the colon was dilated and ischemic to the mid transverse colon. A stapler was used to take down the distal transverse colon and an impact LigaSure was used to take the transverse colon from its mesentery and this was followed around down the right colon and to the terminal ileum. A stapler was used to divide the terminal ileum. Next in the left upper quadrant a section of skin was taken and a cruciate incision was made in the fascia and deepened through the muscle into the abdomen. A [place] was used to deliver the transverse colon staple line through the skin. In the same fashion a right lower quadrant skin segment was removed and using retractors the fascia was reached and a cruciate incision was made and muscle sparing incision was created into the abdomen. The terminal ileum was delivered through this. The abdomen was then irrigated and suctioned. The rest of the small intestine appeared viable with no signs of ischemia and the descending colon appeared viable as well. The fascia was closed with interrupted retention sutures as well as a running #1 PDS starting from the top and bottom meeting in the middle. The wound was packed with Betadine soaked Telfa x5 and in between the Telfa packings the skin was stapled. The retention sutures were tied loosely into bolsters. Next the mucous fistula was matured to the skin with interrupted 3-0 Vicryl sutures. The right lower quadrant ileostomy was then matured using Rhona fashion using interrupted 3-0 Vicryl sutures. A stoma appliance was placed over the ileostomy and dressings were placed over the wound and mucous fistula. The patient was taken to ICU intubated. - Admit VTE Documentation VTE Mechan Device Prophylaxis: SCD's
--- NOTE | 2018-12-06 09:35 | CON.PCM_ITS ---
Consultation - Renal PCP/ Referring MD: Requesting physician: [] Primary care physician: SEUN Poe - History of Present Illness History of Present Illness: The patient is a 68 year old M past medical history of end-stage renal disease on Tuesday hemodialysis schedule . Patient presented with acute abdominal pain with vomiting . CAT scan shows pneumatosis of the ascending and transverse colon . Patient had colectomy last night . Currently in ICU , intubated and sedated . Last hemodialysis schedule was on Tuesday . Review of system : Unobtainable due to patient's current condition [] - Allergies Allergies: Allergies irbesartan [From Avapro] Allergy (Severe, Verified 12/06/18 01:12) Blisters zolpidem [From Ambien] Adverse Reaction (Severe, Verified 12/06/18 01:12) made me go crazy, memory loss - Current Medications Current Medications: Current Medications Albuterol Sulfate (Ventolin Aerosols) 2.5 mg INHALATION Q2H PRN PRN PRN Reason: SOB &/OR WHEEZING Albuterol/Ipratropium (Duoneb) 3 ml INHALATION Q4H.RT JAIME Chlorhexidine Gluconate () 15 ml PO BID JAIME Hydrocortisone Sodium Succinate (Solu-Cortef) 100 mg IV Q8 JAIME Famotidine 20 mg/ Sodium (Chloride) 10 mls @ 300 mls/hr IV Q24 JAIME Fentanyl () 100 mls @ 2.5 mls/hr IV .Q40H JAIME Propofol (Diprivan) 1,000 mg in 100 mls @ 4.86 mls/hr CONT INF .Q12H JAIME Sodium Chloride () 250 mls @ 15 mls/hr IV .[id number] PRN PRN Reason: SALINE FLUSH Sodium Chloride () 250 mls @ 15 mls/hr IV .[id number] PRN PRN Reason: SALINE FLUSH Piperacillin Sod/Tazobactam Sod (Zosyn) 3.375 gm in 50 mls @ 12.5 mls/hr IV Q8 JAIME Pantoprazole Sodium 40 mg/ (Sodium Chloride) 110 mls @ 330 mls/hr IV Q24 JAIME Sodium Chloride () 5 - 15 ml IV UD PRN PRN Reason: SALINE FLUSH - Past Medical History Past Medical History (Chronic Problems): Chronic Problems (Last Reviewed 11/26/18 @ 18:35 by Chris Stark DO) Chronic renal failure, stage 5 (Chronic) ESRD (end stage renal disease) (Chronic) History of non-ST elevation myocardial infarction (NSTEMI) (Chronic 01/21/11) History of left heart catheterization (Chronic 01/21/11) 10/13/[address] Barrientos @ [facility]:Per Dr. Jiménez @ [facility]: CABG recommended History of right and left heart catheterization (Chronic 05/24/18) Patent NICHOLAS to LAD, SVG to 1st OM and SVG to RCA. Elevated right heart pressures, significant Diastolic dysfunction per cath done @ [facility], Dr. Barrientos Stented coronary artery (Chronic) 2003, JASON to circumflex ; 10/13/2009 tsfer from [facility] to [facility], total of 5 bare metal stents to RCA per Dr. Barrientos @ [facility]: 3.5 X 18 [employer], followed distally by 3.0 X12 [employer] to distal RCA;3.5 X 15 [employer], followed proximally by 4.0 X 18 [employer] to Mid RCA; 4.0 X 18 [employer] to Proximal RCA S/P CABG x 3 (Chronic 01/26/11) [facility] per Dr. Osito Hernandez: NICHOLAS to LAD, reverse SVG to OMbranch of CX, reverse SVG to PDA of RCA. PDA endarterectomy. 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, JASON to circumflex ; 10/10/2009 tsfer from [facility] to [facility], total of 5 bare metal stents to RCA; CABG X 3 vessels @ [facility] 01/31/2011 (critical left main and restenosis of RCA stents) Diastolic CHF (Chronic) HLD (hyperlipidemia) (Chronic) HTN (hypertension) (Chronic) PAD (peripheral artery disease) (Chronic) COPD (chronic obstructive pulmonary disease) (Chronic) Tobacco dependence (Chronic) Anemia (Chronic) BPH (benign prostatic hyperplasia) (Chronic) - Past Surgical History Surgical History: coronary bypass surgery, tonsillectomy - Social History Smoking Status: Current every day smoker - Family History Maternal Family History: Family History (Last Reviewed 11/13/18 @ 12:56 by Manoj Christensen MD) Father CAD (coronary artery disease) Hypertension Kidney disease CVA (cerebral vascular accident) Other Cancer History Items: Heart Disease Paternal Family History: Family History (Last Reviewed 11/13/18 @ 12:56 by Manoj Christensen MD) Father CAD (coronary artery disease) Hypertension Kidney disease CVA (cerebral vascular accident) Other Cancer History Items: Heart Disease Patient Problems: Active and Suspected Problems (Last Reviewed 11/26/18 @ 18:35 by Chris Stark DO) Colonic ischemia (Acute) - Physical Exam General: - - Sedated and intubated HEENT: Atraumatic Oral: Moist Mucosa Neck: Supple, No JVD Lungs: - - Equal air entry, no wheezing or crackles Abdomen: Bowel Sounds Not Present, Distended Extremities: No clubbing, No cyanosis, No edema Skin: No rashes Lymphatic: No Cervical, Supraclavicular, or Inguinal Adenopathy Neurological: - - Sedated Vital Signs Temp Pulse Resp BP Pulse Ox 97.5 F L 80 27 H 135/76 H 97 12/06/18 04:36 12/06/18 08:35 12/06/18 08:35 12/06/18 04:56 12/06/18 08:35 Oxygen Flow Rate (L/min) 3 Oxygen Delivery Method Nasal Cannula Weight: 78.7 kg Body Mass Index (BMI) 26.4 Finger Stick Blood Glucose 200 Laboratory Tests Past 24 Hrs 12/06/18 12/06/18 12/06/18 01:26 01:26 01:26 WBC Cancelled Corrected WBC Cancelled RBC Cancelled Hgb Cancelled Hct Cancelled MCV Cancelled MCH Cancelled MCHC Cancelled RDW Cancelled RDW Differential Cancelled Plt Count Cancelled MPV Cancelled Immature Gran % (Auto) Cancelled Neut % (Auto) Cancelled Lymph % (Auto) Cancelled [place] % (Auto) Cancelled Eos % (Auto) Cancelled Baso % (Auto) Cancelled Absolute Neuts (auto) Cancelled Absolute Lymphs (auto) Cancelled Total Counted Cancelled Neutrophils % (Manual) Cancelled Band Neutrophils % Cancelled Lymphocytes % (Manual) Cancelled Monocytes % (Manual) Cancelled Eosinophils % (Manual) Cancelled Basophils % (Manual) Cancelled Metamyelocytes % Cancelled Myelocytes % Cancelled Promyelocytes % Cancelled Blast Cells % Cancelled Plasma Cell % (Manual) Cancelled Other Cells % Cancelled Nucleated RBCs/100 WBC Cancelled Differential Comment Cancelled Diff Path Review Cancelled Hypersegmented Neuts Cancelled Atypical Lymphocytes Cancelled Reactive Lymphocytes Cancelled Smudge Cells Cancelled Toxic Granulation Cancelled Dohle Bodies Cancelled Jer Rods Cancelled Platelet Estimate Cancelled Plt Morphology Comment Cancelled RBC Morphology Cancelled Polychromasia Cancelled Hypochromasia Cancelled Poikilocytosis Cancelled Basophilic Stippling Cancelled Anisocytosis Cancelled Microcytosis Cancelled Macrocytosis Cancelled Spherocytes Cancelled Sickle Cells Cancelled Target Cells Cancelled Tear Drop Cells Cancelled Ovalocytes Cancelled Stomatocytes Cancelled [place] Bodies Cancelled [place] Cells Cancelled Bite Cells Cancelled Acanthocytes (Spur) Cancelled Rouleaux Cancelled Schistocytes Cancelled Sodium 128 L Potassium 4.7 Chloride 90 L Carbon Dioxide 20.0 L Anion Gap 18 H BUN 75 H Creatinine 6.68 H Estim Creat Clear Calc 10.38 Est GFR (MDRD) Af Amer 11 L Est GFR (MDRD) Non-Af 9 L BUN/Creatinine Ratio 11.2 Glucose 233 H Lactic Acid Calcium 8.0 L Total Bilirubin 0.60 Direct Bilirubin 0.11 AST 40 H ALT 21 Alkaline Phosphatase 74 Total Creatine Kinase Total Protein 6.9 Albumin 3.2 Globulin 3.7 Triglycerides Lipase 346 Blood Type Antibody Screen 12/06/18 12/06/18 12/06/18 01:26 01:59 03:00 WBC 11.8 H Corrected WBC RBC 2.80 L Hgb 9.0 L Hct 28.9 L MCV 103.2 H MCH 32.1 H MCHC 31.1 L RDW 18.2 H RDW Differential 68.0 H Plt Count 154 MPV 10.0 Immature Gran % (Auto) 0.300 Neut % (Auto) 96.8 H Lymph % (Auto) 2.5 L [place] % (Auto) 0.3 Eos % (Auto) 0.1 Baso % (Auto) 0.0 Absolute Neuts (auto) 11.4 H Absolute Lymphs (auto) 0.30 L Total Counted Not Reportable Neutrophils % (Manual) Band Neutrophils % Lymphocytes % (Manual) Monocytes % (Manual) Eosinophils % (Manual) Basophils % (Manual) Metamyelocytes % Myelocytes % Promyelocytes % Blast Cells % Plasma Cell % (Manual) Other Cells % Nucleated RBCs/100 WBC Differential Comment SCANNED Diff Path Review Hypersegmented Neuts Atypical Lymphocytes Reactive Lymphocytes Smudge Cells Toxic Granulation Dohle Bodies Jer Rods Platelet Estimate ADEQUATE Plt Morphology Comment RBC Morphology Polychromasia Hypochromasia Poikilocytosis Basophilic Stippling Anisocytosis 2+ Microcytosis Macrocytosis 1+ Spherocytes Sickle Cells Target Cells Tear Drop Cells RARE Ovalocytes Stomatocytes [place] Bodies [place] Cells Bite Cells Acanthocytes (Spur) Rouleaux Schistocytes Sodium Potassium Chloride Carbon Dioxide Anion Gap BUN Creatinine Estim Creat Clear Calc Est GFR (MDRD) Af Amer Est GFR (MDRD) Non-Af BUN/Creatinine Ratio Glucose Lactic Acid 1.4 Calcium Total Bilirubin Direct Bilirubin AST ALT Alkaline Phosphatase Total Creatine Kinase 92 Total Protein Albumin Globulin Triglycerides 184 Lipase Blood Type Antibody Screen 12/06/18 05:08 WBC Corrected WBC RBC Hgb Hct MCV MCH MCHC RDW RDW Differential Plt Count MPV Immature Gran % (Auto) Neut % (Auto) Lymph % (Auto) [place] % (Auto) Eos % (Auto) Baso % (Auto) Absolute Neuts (auto) Absolute Lymphs (auto) Total Counted Neutrophils % (Manual) Band Neutrophils % Lymphocytes % (Manual) Monocytes % (Manual) Eosinophils % (Manual) Basophils % (Manual) Metamyelocytes % Myelocytes % Promyelocytes % Blast Cells % Plasma Cell % (Manual) Other Cells % Nucleated RBCs/100 WBC Differential Comment Diff Path Review Hypersegmented Neuts Atypical Lymphocytes Reactive Lymphocytes Smudge Cells Toxic Granulation Dohle Bodies Jer Rods Platelet Estimate Plt Morphology Comment RBC Morphology Polychromasia Hypochromasia Poikilocytosis Basophilic Stippling Anisocytosis Microcytosis Macrocytosis Spherocytes Sickle Cells Target Cells Tear Drop Cells Ovalocytes Stomatocytes [place] Bodies [place] Cells Bite Cells Acanthocytes (Spur) Rouleaux Schistocytes Sodium Potassium Chloride Carbon Dioxide Anion Gap BUN Creatinine Estim Creat Clear Calc Est GFR (MDRD) Af Amer Est GFR (MDRD) Non-Af BUN/Creatinine Ratio Glucose Lactic Acid Calcium Total Bilirubin Direct Bilirubin AST ALT Alkaline Phosphatase Total Creatine Kinase Total Protein Albumin Globulin Triglycerides Lipase Blood Type A NEGATIVE Antibody Screen NEGATIVE Assessment/Plan All Active Problems (Last Reviewed 11/26/18 @ 18:35 by Chris Stark DO) Acute respiratory insufficiency (Acute) (HFpEF) heart failure with preserved ejection fraction (Acute) Hyperkalemia (Acute) Colonic ischemia (Acute) HCAP (healthcare-associated pneumonia) (Acute) Abnormal cardiac enzyme level (Acute) DAI (acute kidney injury) (Resolved) Hypertensive emergency (Resolved) Problem with dialysis access (Resolved) S/P dialysis catheter insertion (Resolved 05/22/18) History of thoracentesis (Resolved 05/22/18) Acute renal failure superimposed on chronic kidney disease (Resolved) Acute respiratory failure with hypoxia (Acute) Leukocytosis (Resolved) 1-end-stage renal disease on Tuesday hemodialysis schedule. Patient goes to [facility]. Last hemodialysis was on December 04. Will arrange hemodialysis session as per the chronic order. 2-anemia: Continue RITCHIE as per the chronic order. 3-pneumatosis of the colon with ischemic bowel. Status post colectomy. Will defer the management to the surgery team. 4-respiratory failure. On vent support as per the ICU team. Renal team will continue to follow. Please call with any question
[2018-12-06] MEDS: fentaNYL drip 100 ML 2.5 MCG IV ×2 (09:42→19:21)
--- NOTE | 2018-12-06 09:52 | PCM.CON.CC ---
Problem List (1) Acute respiratory insufficiency Status: Acute (2) (HFpEF) heart failure with preserved ejection fraction Status: Acute Qualifiers: Heart failure chronicity: chronic Qualified Code(s): I50.32 - Chronic diastolic (congestive) heart failure (3) Colonic ischemia Status: Acute (4) ESRD (end stage renal disease) Status: Chronic (5) History of thoracentesis Status: Resolved Comment: 1700 cc removed from right side (6) Stented coronary artery Status: Chronic Comment: 2003, JASON to circumflex ; 10/13/2009 tsfer from [facility] to [facility], total of 5 bare metal stents to RCA per Dr. Barrientos @ [facility]: 3.5 X 18 Steel Spar Operator, followed distally by 3.0 X12 Steel Spar Operator to distal RCA;3.5 X 15 Steel Spar Operator, followed proximally by 4.0 X 18 Steel Spar Operator to Mid RCA; 4.0 X 18 Steel Spar Operator to Proximal RCA (7) S/P CABG x 3 Status: Chronic Comment: [facility] per Dr. Osito Hernandez: NICHOLAS to LAD, reverse SVG to OMbranch of CX, reverse SVG to PDA of RCA. PDA endarterectomy. (8) Status post peripheral artery angioplasty with insertion of stent Status: Chronic Comment: Right common iliac, [facility] (9) Diastolic CHF Status: Chronic Qualifiers: Heart failure chronicity: acute on chronic Qualified Code(s): I50.33 - Acute on chronic diastolic (congestive) heart failure (10) HLD (hyperlipidemia) Status: Chronic Qualifiers: (11) HTN (hypertension) Status: Chronic Qualifiers: (12) PAD (peripheral artery disease) Status: Chronic (13) COPD (chronic obstructive pulmonary disease) Status: Chronic Qualifiers: (14) Tobacco dependence Status: Chronic (15) BPH (benign prostatic hyperplasia) Status: Chronic Qualifiers: Reason for Consult Date of Consultation: 12/06/18 Reason for Consultation: Respiratory failure History of Present Illness: The patient is a 68 year old M, with past medical history listed below, who presented to [facility] on 12/06/2018 secondary to acute onset of abdominal pain. This abdominal pain was reported as diffuse and associated with nausea and vomiting. Patient reportedly had recently had issues with constipation and had taken some lactulose. Patient was also recently admitted at [facility] 2 weeks ago for CHF and fluid overload. Patient is end-stage renal disease and did receive his hemodialysis yesterday. Through the ER workup, patient was noted to have potential ischemic bowel and was evaluated by surgery. Patient was taken emergently to the OR for evaluation of ischemic bowel. Discussions with Dr. Henderson revealed patient with significant ischemic right and transverse colon. This was resected and patient was noted to have an ileostomy and colostomy at the end of surgery. Surgical intervention reportedly went relatively well, no central line was placed. Dialysis line was used for access. Patient with multiple comorbidities, so was transferred to the intensive care unit on the ventilator. On arrival to the intensive care unit, patient was agitated. Patient was tachypneic and was mouthing that he had abdominal pain. Patient was given sedation and IV fentanyl for pain control. Patient has not required any pressors or boluses at this time. Did discuss with patient's family about current situation. They have agreed for placement of a central line. Patient does follow with [facility], so Dr. Livingston was made aware of his arrival. Family was unable to provide any additional review of systems at this time. Patient is a full code in the immediate postoperative period. Past Medical History Past Medical History (Chronic Problems): Chronic Problems (Last Reviewed 11/26/18 @ 18:35 by Chris Stark DO) Chronic renal failure, stage 5 (Chronic) ESRD (end stage renal disease) (Chronic) History of non-ST elevation myocardial infarction (NSTEMI) (Chronic 01/21/11) History of left heart catheterization (Chronic 01/21/11) 10/13/[address] Barrientos @ [facility]:Per Dr. Jiménez @ [facility]: CABG recommended History of right and left heart catheterization (Chronic 05/24/18) Patent NICHOLAS to LAD, SVG to 1st OM and SVG to RCA. Elevated right heart pressures, significant Diastolic dysfunction per cath done @ [facility], Dr. Barrientos Stented coronary artery (Chronic) 2003, JASON to circumflex ; 10/13/2009 tsfer from [facility] to [facility], total of 5 bare metal st[facility]: 3.5 X 18 Steel Spar Operator, followed distally by 3.0 X12 Steel Spar Operator to distal RCA;3.5 X 15 Steel Spar Operator, followed proximally by 4.0 X 18 Steel Spar Operator to Mid RCA; 4.0 X 18 Steel Spar Operator to Proximal RCA S/P CABG x 3 (Chronic 01/26/11) [facility] per Dr. Osito Hernandez: NICHOLAS to LAD, reverse SVG to OMbranch of CX, reverse SVG to PDA of RCA. PDA endarterectomy. 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 (Chronic) 2004, JASON to circumflex ; 10/10/2009 tsfer from [facility] to [facility], total of 5 bare metal stents to RCA; CABG X 3 vessels @ [facility] 01/31/2011 (critical left main and restenosis of RCA stents) Diastolic CHF (Chronic) HLD (hyperlipidemia) (Chronic) HTN (hypertension) (Chronic) PAD (peripheral artery disease) (Chronic) COPD (chronic obstructive pulmonary disease) (Chronic) Tobacco dependence (Chronic) Anemia (Chronic) BPH (benign prostatic hyperplasia) (Chronic) Medical History: Medical History (Last Reviewed 11/26/18 @ 18:35 by Chris Stark DO) History of non-ST elevation myocardial infarction (NSTEMI) (Chronic) Onset Date: 01/21/11 I25.2 Atherosclerotic heart disease of [place] coronary artery without angina pectoris (Chronic) I25.10 2003, JASON to circumflex ; 10/10/2009 tsfer from [facility] to [facility], total of 5 bare metal stents to RCA; CABG X 3 vessels @ [facility] 01/31/2011 (critical left main and restenosis of RCA stents) Acute renal failure superimposed on chronic kidney disease (Resolved) N17.9, N18.9 Diastolic CHF (Chronic) I50.30 HLD (hyperlipidemia) (Chronic) E78.5 HTN (hypertension) (Chronic) I10 PAD (peripheral artery disease) (Chronic) I73.9 COPD (chronic obstructive pulmonary disease) (Chronic) J44.9 Tobacco dependence (Chronic) F17.200 CKD (chronic kidney disease) (Inactive) N18.9 Leukocytosis (Resolved) D72.829 Anemia (Chronic) D64.9 BPH (benign prostatic hyperplasia) (Chronic) N40.0 Allergies irbesartan [From Avapro] Allergy (Severe, Verified 12/06/18 01:12) Blisters zolpidem [From Ambien] Adverse Reaction (Severe, Verified 12/06/18 01:12) made me go crazy, memory loss Home Medications: Ambulatory Orders Medication Instructions Recorded Albuterol Sulfate 2.5 mg IH Q4H PRN 11/13/18 Alprazolam [Xanax] 0.5 mg PO TID PRN 11/13/18 Aspirin E.C. [Ecotrin] 81 mg PO DAILY@0800 11/13/18 Clopidogrel Bisulfate [Plavix] 75 mg PO DAILY 11/13/18 Ferric Citrate [Auryxia] 210 mg PO BID 11/13/18 Lactulose 30 gm PO QODAY 11/13/18 Prednisone 10 mg PO DAILY 11/13/18 Ropinirole HCl [Requip] 1 mg PO QHS 11/13/18 Rosuvastatin Calcium [Crestor] 40 mg PO QHS 11/13/18 Tamsulosin HCl [Flomax] 0.8 mg PO DAILY 11/13/18 hydrALAZINE [Apresoline] 25 mg PO BID 11/13/18 Metoprolol(XL)Succ [Toprol Xl 100 mg PO BID 12/06/18 (Beta Kadi)] Surgical History: Surgical History (Last Reviewed 11/26/18 @ 18:35 by Chris Stark DO) History of left heart catheterization (Chronic) Onset Date: 01/21/11 Z98.890 10/13/[address] Barrientos @ [facility]:Per Dr. Jiménez @ [facility]: CABG recommended S/P dialysis catheter insertion (Resolved) Onset Date: 05/22/18 Z95.828, Z99.2 Right internal jugular access per Dr. Demian Lua History of right and left heart catheterization (Chronic) Onset Date: 05/24/18 Z98.890 Patent NICHOLAS to LAD, SVG to 1st OM and SVG to RCA. Elevated right heart pressures, significant Diastolic [facility] History of thoracentesis (Resolved) Onset Date: 05/22/18 Z98.890 1700 cc removed from right side Stented coronary artery (Chronic) Z95.5 2004, JASON to circumflex ; 10/13/2009 tsfer from [facility] to [facility], total of 5 [facility] st[facility]: 3.5 X 18 Steel Spar Operator, followed distally by 3.0 X12 Steel Spar Operator to distal RCA;3.5 X 15 Steel Spar Operator, followed proximally by 4.0 X 18 Steel Spar Operator to Mid RCA; 4.0 X 18 Steel Spar Operator to Proximal RCA S/P CABG x 3 (Chronic) Onset Date: 01/26/11 Z95.1 [facility] per Dr. Osito Hernandez: NICHOLAS to LAD, reverse SVG to OMbranch of CX, reverse SVG to PDA of RCA. PDA endarterectomy. history of surgically created arteriovenous fistula s/p fistulogram Onset Date: ~09/28/18 Surgical History: coronary bypass surgery, tonsillectomy Smoking Status: Current every day smoker - *Family History Maternal Family History: Family History (Last Reviewed 11/13/18 @ 12:56 by Manoj Christensen MD) Father CAD (coronary artery disease) Hypertension Kidney disease CVA (cerebral vascular accident) Other Cancer History Items: Heart Disease Paternal Family History: Family History (Last Reviewed 11/13/18 @ 12:56 by Manoj Christensen MD) Father CAD (coronary artery disease) Hypertension Kidney disease CVA (cerebral vascular accident) Other Cancer History Items: Heart Disease Review of Systems Unable to obtain accurate/complete ROS d/t: Intubated and sedated Patient Problems: Active and Suspected Problems (Last Reviewed 11/26/18 @ 18:35 by Chris Stark DO) Colonic ischemia (Acute) Objective: Chest x-rays were personally reviewed. Endotracheal tube is slightly high, along with OG. - Physical Exam General: - - Intubated and sedated. RASS -2. Appears older than stated age. Good vent synchrony following sedation. HEENT: Atraumatic, PERRLA, EOMI, Normocephalic, - - No scleral icterus or injection noted. Oral: Moist Mucosa, No Gingival or Mucosal Lesions/ Ulcerations Neck: Supple, No JVD, No Nodes, Trachea Midline Lungs: No rhonchi, No wheeze, Diminished, Rales - Right greater than left, - - Symmetric expansion. No dullness to percussion. Cardiovascular: Regular rate, Regular Rhythm, Normal S1, Normal S2, No murmurs, No rub noted, No Gallop Abdomen: Soft, Bowel Sounds Not Present, - - Extensive dressing across the abdomen. Extremities: No clubbing, No cyanosis, Edema Skin: No breakdown, - - Ecchymotic areas noted throughout both arms. Musculoskeletal: No Tenderness to Palpation of Joints or Extremities Lymphatic: No Cervical, Supraclavicular, or Inguinal Adenopathy Neurological: Cranial nerves II-XII grossly intact, Neuro grossly intact, Motor Exam 5/5 strength throughout Psych/Mental Status: Flat Affect Vital Signs Temp Pulse Resp BP Pulse Ox 36.4 C L 70 16 135/76 H 100 12/06/18 04:36 12/06/18 09:25 12/06/18 09:25 12/06/18 04:56 12/06/18 09:25 Oxygen Flow Rate (L/min) 3 Oxygen Delivery Method Nasal Cannula Weight: 78.7 kg Body Mass Index (BMI) 26.4 Finger Stick Blood Glucose 200 Laboratory Tests Past 24 Hrs 12/06/18 12/06/18 12/06/18 01:26 01:26 01:26 WBC Cancelled Corrected WBC Cancelled RBC Cancelled Hgb Cancelled Hct Cancelled MCV Cancelled MCH Cancelled MCHC Cancelled RDW Cancelled RDW Differential Cancelled Plt Count Cancelled MPV Cancelled Immature Gran % (Auto) Cancelled Neut % (Auto) Cancelled Lymph % (Auto) Cancelled Cooper % (Auto) Cancelled Eos % (Auto) Cancelled Baso % (Auto) Cancelled Absolute Neuts (auto) Cancelled Absolute Lymphs (auto) Cancelled Total Counted Cancelled Neutrophils % (Manual) Cancelled Band Neutrophils % Cancelled Lymphocytes % (Manual) Cancelled Monocytes % (Manual) Cancelled Eosinophils % (Manual) Cancelled Basophils % (Manual) Cancelled Metamyelocytes % Cancelled Myelocytes % Cancelled Promyelocytes % Cancelled Blast Cells % Cancelled Plasma Cell % (Manual) Cancelled Other Cells % Cancelled Nucleated RBCs/100 WBC Cancelled Differential Comment Cancelled Diff Path Review Cancelled Hypersegmented Neuts Cancelled Atypical Lymphocytes Cancelled Reactive Lymphocytes Cancelled Smudge Cells Cancelled Toxic Granulation Cancelled Dohle Bodies Cancelled Jer Rods Cancelled Platelet Estimate Cancelled Plt Morphology Comment Cancelled RBC Morphology Cancelled Polychromasia Cancelled Hypochromasia Cancelled Poikilocytosis Cancelled Basophilic Stippling Cancelled Anisocytosis Cancelled Microcytosis Cancelled Macrocytosis Cancelled Spherocytes Cancelled Sickle Cells Cancelled Target Cells Cancelled Tear Drop Cells Cancelled Ovalocytes Cancelled Stomatocytes Cancelled Somers-Mershon Bodies Cancelled Zach Cells Cancelled Bite Cells Cancelled Acanthocytes (Spur) Cancelled Rouleaux Cancelled Schistocytes Cancelled Sodium 128 L Potassium 4.7 Chloride 90 L Carbon Dioxide 20.0 L Anion Gap 18 H BUN 75 H Creatinine 6.68 H Estim Creat Clear Calc 10.38 Est GFR (MDRD) Af Amer 11 L Est GFR (MDRD) Non-Af 9 L BUN/Creatinine Ratio 11.2 Glucose 233 H Lactic Acid Calcium 8.0 L Total Bilirubin 0.60 Direct Bilirubin 0.11 AST 40 H ALT 21 Alkaline Phosphatase 74 Total Creatine Kinase Total Protein 6.9 Albumin 3.2 Globulin 3.7 Triglycerides Lipase 346 Blood Type Antibody Screen 12/06/18 12/06/18 12/06/18 01:26 01:59 03:00 WBC 11.8 H Corrected WBC RBC 2.80 L Hgb 9.0 L Hct 28.9 L MCV 103.2 H MCH 32.1 H MCHC 31.1 L RDW 18.2 H RDW Differential 68.0 H Plt Count 154 MPV 10.0 Immature Gran % (Auto) 0.300 Neut % (Auto) 96.8 H Lymph % (Auto) 2.5 L Cooper % (Auto) 0.3 Eos % (Auto) 0.1 Baso % (Auto) 0.0 Absolute Neuts (auto) 11.4 H Absolute Lymphs (auto) 0.30 L Total Counted Not Reportable Neutrophils % (Manual) Band Neutrophils % Lymphocytes % (Manual) Monocytes % (Manual) Eosinophils % (Manual) Basophils % (Manual) Metamyelocytes % Myelocytes % Promyelocytes % Blast Cells % Plasma Cell % (Manual) Other Cells % Nucleated RBCs/100 WBC Differential Comment SCANNED Diff Path Review Hypersegmented Neuts Atypical Lymphocytes Reactive Lymphocytes Smudge Cells Toxic Granulation Dohle Bodies Jer Rods Platelet Estimate ADEQUATE Plt Morphology Comment RBC Morphology Polychromasia Hypochromasia Poikilocytosis Basophilic Stippling Anisocytosis 2+ Microcytosis Macrocytosis 1+ Spherocytes Sickle Cells Target Cells Tear Drop Cells RARE Ovalocytes Stomatocytes Somers-Mershon Bodies [place] Cells Bite Cells Acanthocytes (Spur) Rouleaux Schistocytes Sodium Potassium Chloride Carbon Dioxide Anion Gap BUN Creatinine Estim Creat Clear Calc Est GFR (MDRD) Af Amer Est GFR (MDRD) Non-Af BUN/Creatinine Ratio Glucose Lactic Acid 1.4 Calcium Total Bilirubin Direct Bilirubin AST ALT Alkaline Phosphatase Total Creatine Kinase 92 Total Protein Albumin Globulin Triglycerides 184 Lipase Blood Type Antibody Screen 12/06/18 05:08 WBC Corrected WBC RBC Hgb Hct MCV MCH MCHC RDW RDW Differential Plt Count MPV Immature Gran % (Auto) Neut % (Auto) Lymph % (Auto) Cooper % (Auto) Eos % (Auto) Baso % (Auto) Absolute Neuts (auto) Absolute Lymphs (auto) Total Counted Neutrophils % (Manual) Band Neutrophils % Lymphocytes % (Manual) Monocytes % (Manual) Eosinophils % (Manual) Basophils % (Manual) Metamyelocytes % Myelocytes % Promyelocytes % Blast Cells % Plasma Cell % (Manual) Other Cells % Nucleated RBCs/100 WBC Differential Comment Diff Path Review Hypersegmented Neuts Atypical Lymphocytes Reactive Lymphocytes Smudge Cells Toxic Granulation Dohle Bodies Jer Rods Platelet Estimate Plt Morphology Comment RBC Morphology Polychromasia Hypochromasia Poikilocytosis Basophilic Stippling Anisocytosis Microcytosis Macrocytosis Spherocytes Sickle Cells Target Cells Tear Drop Cells Ovalocytes Stomatocytes Somers-Mershon Bodies [place] Cells Bite Cells Acanthocytes (Spur) Rouleaux Schistocytes Sodium Potassium Chloride Carbon Dioxide Anion Gap BUN Creatinine Estim Creat Clear Calc Est GFR (MDRD) Af Amer Est GFR (MDRD) Non-Af BUN/Creatinine Ratio Glucose Lactic Acid Calcium Total Bilirubin Direct Bilirubin AST ALT Alkaline Phosphatase Total Creatine Kinase Total Protein Albumin Globulin Triglycerides Lipase Blood Type A NEGATIVE Antibody Screen NEGATIVE Clinical Impression(s) from Imaging Studies Chest X-Ray 12/06/18 01:23 IMPRESSION: 1. Worsening congestive heart failure. 2. Stable small left pleural effusion. Electronically Signed: Robert García MD at 2:31 EST Tel , Service support , Abdomen/Pelvis CT 12/06/18 01:36 IMPRESSION: 1. Pneumatosis of the cecum and descending colon with extensive portal venous gas throughout the mesenteric venous channels and into the periphery of the liver parenchyma. 2. Bibasilar airspace infiltration, either representing confluent dependent edema or bibasilar pneumonia. 3. Trace bilateral pleural effusions. 4. Left renal atrophy 5. Simple appearing cyst off of the lateral midpole of the left kidney. Electronically Signed: Robert García MD at 2:41 EST Tel , Service support , ADDENDUM: 12/06/18 0253 IMPRESSION: 1. Pneumatosis of the cecum and descending colon with extensive portal venous gas throughout the mesenteric venous channels and into the periphery of the liver parenchyma. 2. Bibasilar airspace infiltration, either representing confluent dependent edema or bibasilar pneumonia. 3. Trace bilateral pleural effusions. 4. Left renal atrophy 5. Simple appearing cyst off of the lateral midpole of the left kidney. N.B. : The above information has been verbally conveyed by Robert García MD to Andreia Jeffery MD, MD, on 12/06/2018 02:45:55 (ET). Electronically Signed: Robert García MD at 2:41 EST Tel , Service support , Chest X-Ray 12/06/18 08:29 IMPRESSION: The tip of the endotracheal tube is at 6.5 sinus proximal to the iliana. The tip of the nasogastric tube is in the body of the stomach just distal to the gastroesophageal junction. Left basilar atelectasis and/or infiltrate with small left effusion. Central vascular congestion. Electronically Signed: Deven Hensley MD at 9:46 EST , Service support , Assessment/Plan Active and Suspected Problems (Last Reviewed 11/26/18 @ 18:35 by Chris Stark DO) Colonic ischemia (Acute) RECOMMENDATIONS: 1. Place central line 2. Attempt to limit IV fluids 3. Hemodialysis today 4. Spontaneous breathing and awakening trial per protocol 5. Possible pressor therapy IMPRESSIONS: 1. Septic shock/relative adrenal insufficiency secondary to ischemic colitis Patient with progressive lower blood pressures while in the intensive care unit. Central line has been placed and patient was placed on pressor therapy. Patient is on empiric Zosyn therapy for possible translocation of bacteria with ischemic colitis. Will have to watch volume status closely as patient does have a history of congestive heart failure in the recent past. Patient does take 10 mg of prednisone on a daily basis. Will place patient on stress dose steroids. 2. Acute respiratory failure secondary to ischemic colitis/presumed COPD Patient appears to be doing well on the current settings. Chest x-ray shows appropriate placement of endotracheal tube. We will continue with mechanical ventilation overnight. Spontaneous breathing and awakening trials tomorrow. Patient will have to be watched closely for the development of congestive heart failure as this has been a problem in the past. Patient does have a reported underlying history of COPD, but pulmonary function tests are not available for quantification and clarification of baseline lung function. Bronchodilators have been ordered. 3. Embolic ischemic colitis status post resection postop day #0 Surgery is currently following. Do anticipate patient received significant amounts of fluid in the OR. Will need to follow closely. Patient's ostomy appears to be functioning well at this point. Surgery following. 4. Chronic diastolic congestive heart failure Patient with multiple admissions in the past secondary to congestive heart failure complicated by end-stage renal disease. Home medical therapy will be held for now given acute condition. These can be reinitiated in a stepwise fashion after the acute condition. 5. Peripheral artery disease/hypertension/hyperlipidemia/end-stage renal disease/anemia of chronic disease Complicates care, management, recovery and prognosis. Renal has been consulted for hemodialysis. Blood pressure medication should be held secondary to acute condition. TIME: 80 minutes of critical care time spent addressing patient's acute respiratory failure, septic shock, ischemic colitis, congestive heart failure, review of all data and collaboration with care team (9 AM to 11:50 AM) Code Visit Procedures: 36512 Critial Care Addl 30 Min 9xxxx: [id number] Critical care first hour
--- NOTE | 2018-12-06 09:59 | CON.PCM_ITS ---
Problem List (1) Acute respiratory insufficiency Status: Acute (2) (HFpEF) heart failure with preserved ejection fraction Status: Acute Qualifiers: Heart failure chronicity: chronic Qualified Code(s): I50.32 - Chronic diastolic (congestive) heart failure (3) Colonic ischemia Status: Acute (4) ESRD (end stage renal disease) Status: Chronic (5) History of thoracentesis Status: Resolved Comment: 1700 cc removed from right side (6) Stented coronary artery Status: Chronic Comment: 2003, JASON to circumflex ; 10/13/2009 tsfer from [facility] to [facility], total of 5 bare metal stents to RCA per Dr. Barrientos @ [facility]: 3.5 X 18 Environmental Services Aide, followed distally by 3.0 X12 Environmental Services Aide to distal RCA;3.5 X 15 Environmental Services Aide, followed proximally by 4.0 X 18 Environmental Services Aide to Mid RCA; 4.0 X 18 Environmental Services Aide to Proximal RCA (7) S/P CABG x 3 Status: Chronic Comment: [facility] per Dr. Osito Hernandez: NICHOLAS to LAD, reverse SVG to OMbranch of CX, reverse SVG to PDA of RCA. PDA endarterectomy. (8) Status post peripheral artery angioplasty with insertion of stent Status: Chronic Comment: Right common iliac, [facility] (9) Diastolic CHF Status: Chronic Qualifiers: Heart failure chronicity: acute on chronic Qualified Code(s): I50.33 - Acute on chronic diastolic (congestive) heart failure (10) HLD (hyperlipidemia) Status: Chronic Qualifiers: (11) HTN (hypertension) Status: Chronic Qualifiers: (12) PAD (peripheral artery disease) Status: Chronic (13) COPD (chronic obstructive pulmonary disease) Status: Chronic Qualifiers: (14) Tobacco dependence Status: Chronic (15) BPH (benign prostatic hyperplasia) Status: Chronic Qualifiers: Reason for Consult Date of Consultation: 12/06/18 Reason for Consultation: Respiratory failure History of Present Illness: The patient is a 68 year old M, with past medical history listed below, who presented to [facility] on 12/06/2018 secondary to acute onset of abdominal pain. This abdominal pain was reported as diffuse and associated with nausea and vomiting. Patient reportedly had recently had issues with constipation and had taken some lactulose. Patient was also recently admitted at [facility] 2 weeks ago for CHF and fluid overload. Patient is end-stage renal disease and did receive his hemodialysis yesterday. Through the ER workup, patient was noted to have potential ischemic bowel and was evaluated by surgery. Patient was taken emergently to the OR for evaluation of ischemic bowel. Discussions with Dr. Henderson revealed patient with significant ischemic right and transverse colon. This was resected and patient was noted to have an ileostomy and colostomy at the end of surgery. Surgical intervention reportedly went relatively well, no central line was placed. Dialysis line was used for access. Patient with multiple comorbidities, so was transferred to the intensive care unit on the ventilator. On arrival to the intensive care unit, patient was agitated. Patient was tachypneic and was mouthing that he had abdominal pain. Patient was given sedation and IV fentanyl for pain control. Patient has not required any pressors or boluses at this time. Did discuss with patient's family about current situation. They have agreed for placement of a central line. Patient does follow with [facility], so Dr. Livingston was made aware of his arrival. Family was unable to provide any additional review of systems at this time. Patient is a full code in the immediate postoperative period. Past Medical History Past Medical History (Chronic Problems): Chronic Problems (Last Reviewed 11/26/18 @ 18:35 by Chris Stark DO) Chronic renal failure, stage 5 (Chronic) ESRD (end stage renal disease) (Chronic) History of non-ST elevation myocardial infarction (NSTEMI) (Chronic 01/21/11) History of left heart catheterization (Chronic 01/21/11) 10/13/[address] Barrientos @ [facility]:Per Dr. Jiménez @ [facility]: CABG recommended History of right and left heart catheterization (Chronic 05/24/18) Patent NICHOLAS to LAD, SVG to 1st OM and SVG to RCA. Elevated right heart pressures, significant Diastolic dysfunction per cath done @ [facility], Dr. Barrientos Stented coronary artery (Chronic) 2003, JASON to circumflex ; 10/13/2009 tsfer from [facility] to [facility], total of 5 bare metal st[facility]: 3.5 X 18 Environmental Services Aide, followed distally by 3.0 X12 Environmental Services Aide to distal RCA;3.5 X 15 Environmental Services Aide, followed proximally by 4.0 X 18 Environmental Services Aide to Mid RCA; 4.0 X 18 Environmental Services Aide to Proximal RCA S/P CABG x 3 (Chronic 01/26/11) [facility] per Dr. Osito Hernandez: NICHOLAS to LAD, reverse SVG to OMbranch of CX, reverse SVG to PDA of RCA. PDA endarterectomy. Status post peripheral artery angioplasty with insertion of stent (Chronic ~2010) Right common iliac, [facility] Atherosclerotic heart disease of [place] coronary artery without angina pectoris (Chronic) 2004, JASON to circumflex ; 10/10/2009 tsfer from [facility] to [facility], total of 5 bare metal stents to RCA; CABG X 3 vessels @ [facility] 01/31/2011 (critical left main and restenosis of RCA stents) Diastolic CHF (Chronic) HLD (hyperlipidemia) (Chronic) HTN (hypertension) (Chronic) PAD (peripheral artery disease) (Chronic) COPD (chronic obstructive pulmonary disease) (Chronic) Tobacco dependence (Chronic) Anemia (Chronic) BPH (benign prostatic hyperplasia) (Chronic) Medical History: Medical History (Last Reviewed 11/26/18 @ 18:35 by Chris Stark DO) History of non-ST elevation myocardial infarction (NSTEMI) (Chronic) Onset Date: 01/21/11 I25.2 Atherosclerotic heart disease of [place] coronary artery without angina pectoris (Chronic) I25.10 2003, JASON to circumflex ; 10/10/2009 tsfer from [facility] to [facility], total of 5 bare metal stents to RCA; CABG X 3 vessels @ [facility] 01/31/2011 (critical left main and restenosis of RCA stents) Acute renal failure superimposed on chronic kidney disease (Resolved) N17.9, N18.9 Diastolic CHF (Chronic) I50.30 HLD (hyperlipidemia) (Chronic) E78.5 HTN (hypertension) (Chronic) I10 PAD (peripheral artery disease) (Chronic) I73.9 COPD (chronic obstructive pulmonary disease) (Chronic) J44.9 Tobacco dependence (Chronic) F17.200 CKD (chronic kidney disease) (Inactive) N18.9 Leukocytosis (Resolved) D72.829 Anemia (Chronic) D64.9 BPH (benign prostatic hyperplasia) (Chronic) N40.0 Allergies irbesartan [From Avapro] Allergy (Severe, Verified 12/06/18 01:12) Blisters zolpidem [From Ambien] Adverse Reaction (Severe, Verified 12/06/18 01:12) made me go crazy, memory loss Home Medications: Ambulatory Orders Medication Instructions Recorded Albuterol Sulfate 2.5 mg IH Q4H PRN 11/13/18 Alprazolam [Xanax] 0.5 mg PO TID PRN 11/13/18 Aspirin E.C. [Ecotrin] 81 mg PO DAILY@0800 11/13/18 Clopidogrel Bisulfate [Plavix] 75 mg PO DAILY 11/13/18 Ferric Citrate [Auryxia] 210 mg PO BID 11/13/18 Lactulose 30 gm PO QODAY 11/13/18 Prednisone 10 mg PO DAILY 11/13/18 Ropinirole HCl [Requip] 1 mg PO QHS 11/13/18 Rosuvastatin Calcium [Crestor] 40 mg PO QHS 11/13/18 Tamsulosin HCl [Flomax] 0.8 mg PO DAILY 11/13/18 hydrALAZINE [Apresoline] 25 mg PO BID 11/13/18 Metoprolol(XL)Succ [Toprol Xl 100 mg PO BID 12/06/18 (Beta Kadi)] Surgical History: Surgical History (Last Reviewed 11/26/18 @ 18:35 by Chris Stark DO) History of left heart catheterization (Chronic) Onset Date: 01/21/11 Z98.890 10/13/[address] Barrientos @ [facility]:Per Dr. Jiménez @ [facility]: CABG recommended S/P dialysis catheter insertion (Resolved) Onset Date: 05/22/18 Z95.828, Z99.2 Right internal jugular access per Dr. Demian Lau History of right and left heart catheterization (Chronic) Onset Date: 05/24/18 Z98.890 Patent NICHOLAS to LAD, SVG to 1st OM and SVG to RCA. Elevated right heart pressures, significant Diastolic [facility] History of thoracentesis (Resolved) Onset Date: 05/22/18 Z98.890 1700 cc removed from right side Stented coronary artery (Chronic) Z95.5 2004, JASON to circumflex ; 10/13/2009 tsfer from [facility] to [facility], total of 5 bare metal st[facility]: 3.5 X 18 Environmental Services Aide, followed distally by 3.0 X12 Environmental Services Aide to distal RCA;3.5 X 15 Environmental Services Aide, followed proximally by 4.0 X 18 Environmental Services Aide to Mid RCA; 4.0 X 18 Environmental Services Aide to Proximal RCA S/P CABG x 3 (Chronic) Onset Date: 01/26/11 Z95.1 [facility] per Dr. Osito Hernandez: NICHOLAS to LAD, reverse SVG to OMbranch of CX, reverse SVG to PDA of RCA. PDA endarterectomy. history of surgically created arteriovenous fistula s/p fistulogram Onset Date: ~09/28/18 Surgical History: coronary bypass surgery, tonsillectomy Smoking Status: Current every day smoker - *Family History Maternal Family History: Family History (Last Reviewed 11/13/18 @ 12:56 by Manoj Christensen MD) Father CAD (coronary artery disease) Hypertension Kidney disease CVA (cerebral vascular accident) Other Cancer History Items: Heart Disease Paternal Family History: Family History (Last Reviewed 11/13/18 @ 12:56 by Manoj Christensen MD) Father CAD (coronary artery disease) Hypertension Kidney disease CVA (cerebral vascular accident) Other Cancer History Items: Heart Disease Review of Systems Unable to obtain accurate/complete ROS d/t: Intubated and sedated Patient Problems: Active and Suspected Problems (Last Reviewed 11/26/18 @ 18:35 by Chris Stark DO) Colonic ischemia (Acute) Objective: Chest x-rays were personally reviewed. Endotracheal tube is slightly high, along with OG. - Physical Exam General: - - Intubated and sedated. RASS -2. Appears older than stated age. Good vent synchrony following sedation. HEENT: Atraumatic, PERRLA, EOMI, Normocephalic, - - No scleral icterus or injection noted. Oral: Moist Mucosa, No Gingival or Mucosal Lesions/ Ulcerations Neck: Supple, No JVD, No Nodes, Trachea Midline Lungs: No rhonchi, No wheeze, Diminished, Rales - Right greater than left, - - Symmetric expansion. No dullness to percussion. Cardiovascular: Regular rate, Regular Rhythm, Normal S1, Normal S2, No murmurs, No rub noted, No Gallop Abdomen: Soft, Bowel Sounds Not Present, - - Extensive dressing across the abdomen. Extremities: No clubbing, No cyanosis, Edema Skin: No breakdown, - - Ecchymotic areas noted throughout both arms. Musculoskeletal: No Tenderness to Palpation of Joints or Extremities Lymphatic: No Cervical, Supraclavicular, or Inguinal Adenopathy Neurological: Cranial nerves II-XII grossly intact, Neuro grossly intact, Motor Exam 5/5 strength throughout Psych/Mental Status: Flat Affect Vital Signs Temp Pulse Resp BP Pulse Ox 36.4 C L 70 16 135/76 H 100 12/06/18 04:36 12/06/18 09:25 12/06/18 09:25 12/06/18 04:56 12/06/18 09:25 Oxygen Flow Rate (L/min) 3 Oxygen Delivery Method Nasal Cannula Weight: 78.7 kg Body Mass Index (BMI) 26.4 Finger Stick Blood Glucose 200 Laboratory Tests Past 24 Hrs 12/06/18 12/06/18 12/06/18 01:26 01:26 01:26 WBC Cancelled Corrected WBC Cancelled RBC Cancelled Hgb Cancelled Hct Cancelled MCV Cancelled MCH Cancelled MCHC Cancelled RDW Cancelled RDW Differential Cancelled Plt Count Cancelled MPV Cancelled Immature Gran % (Auto) Cancelled Neut % (Auto) Cancelled Lymph % (Auto) Cancelled Kay % (Auto) Cancelled Eos % (Auto) Cancelled Baso % (Auto) Cancelled Absolute Neuts (auto) Cancelled Absolute Lymphs (auto) Cancelled Total Counted Cancelled Neutrophils % (Manual) Cancelled Band Neutrophils % Cancelled Lymphocytes % (Manual) Cancelled Monocytes % (Manual) Cancelled Eosinophils % (Manual) Cancelled Basophils % (Manual) Cancelled Metamyelocytes % Cancelled Myelocytes % Cancelled Promyelocytes % Cancelled Blast Cells % Cancelled Plasma Cell % (Manual) Cancelled Other Cells % Cancelled Nucleated RBCs/100 WBC Cancelled Differential Comment Cancelled Diff Path Review Cancelled Hypersegmented Neuts Cancelled Atypical Lymphocytes Cancelled Reactive Lymphocytes Cancelled Smudge Cells Cancelled Toxic Granulation Cancelled Dohle Bodies Cancelled Jer Rods Cancelled Platelet Estimate Cancelled Plt Morphology Comment Cancelled RBC Morphology Cancelled Polychromasia Cancelled Hypochromasia Cancelled Poikilocytosis Cancelled Basophilic Stippling Cancelled Anisocytosis Cancelled Microcytosis Cancelled Macrocytosis Cancelled Spherocytes Cancelled Sickle Cells Cancelled Target Cells Cancelled Tear Drop Cells Cancelled Ovalocytes Cancelled Stomatocytes Cancelled [place] Bodies Cancelled Zach Cells Cancelled Bite Cells Cancelled Acanthocytes (Spur) Cancelled Rouleaux Cancelled Schistocytes Cancelled Sodium 128 L Potassium 4.7 Chloride 90 L Carbon Dioxide 20.0 L Anion Gap 18 H BUN 75 H Creatinine 6.68 H Estim Creat Clear Calc 10.38 Est GFR (MDRD) Af Amer 11 L Est GFR (MDRD) Non-Af 9 L BUN/Creatinine Ratio 11.2 Glucose 233 H Lactic Acid Calcium 8.0 L Total Bilirubin 0.60 Direct Bilirubin 0.11 AST 40 H ALT 21 Alkaline Phosphatase 74 Total Creatine Kinase Total Protein 6.9 Albumin 3.2 Globulin 3.7 Triglycerides Lipase 346 Blood Type Antibody Screen 12/06/18 12/06/18 12/06/18 01:26 01:59 03:00 WBC 11.8 H Corrected WBC RBC 2.80 L Hgb 9.0 L Hct 28.9 L MCV 103.2 H MCH 32.1 H MCHC 31.1 L RDW 18.2 H RDW Differential 68.0 H Plt Count 154 MPV 10.0 Immature Gran % (Auto) 0.300 Neut % (Auto) 96.8 H Lymph % (Auto) 2.5 L Kay % (Auto) 0.3 Eos % (Auto) 0.1 Baso % (Auto) 0.0 Absolute Neuts (auto) 11.4 H Absolute Lymphs (auto) 0.30 L Total Counted Not Reportable Neutrophils % (Manual) Band Neutrophils % Lymphocytes % (Manual) Monocytes % (Manual) Eosinophils % (Manual) Basophils % (Manual) Metamyelocytes % Myelocytes % Promyelocytes % Blast Cells % Plasma Cell % (Manual) Other Cells % Nucleated RBCs/100 WBC Differential Comment SCANNED Diff Path Review Hypersegmented Neuts Atypical Lymphocytes Reactive Lymphocytes Smudge Cells Toxic Granulation Dohle Bodies Jer Rods Platelet Estimate ADEQUATE Plt Morphology Comment RBC Morphology Polychromasia Hypochromasia Poikilocytosis Basophilic Stippling Anisocytosis 2+ Microcytosis Macrocytosis 1+ Spherocytes Sickle Cells Target Cells Tear Drop Cells RARE Ovalocytes Stomatocytes [place] Bodies Ninety Six Cells Bite Cells Acanthocytes (Spur) Rouleaux Schistocytes Sodium Potassium Chloride Carbon Dioxide Anion Gap BUN Creatinine Estim Creat Clear Calc Est GFR (MDRD) Af Amer Est GFR (MDRD) Non-Af BUN/Creatinine Ratio Glucose Lactic Acid 1.4 Calcium Total Bilirubin Direct Bilirubin AST ALT Alkaline Phosphatase Total Creatine Kinase 92 Total Protein Albumin Globulin Triglycerides 184 Lipase Blood Type Antibody Screen 12/06/18 05:08 WBC Corrected WBC RBC Hgb Hct MCV MCH MCHC RDW RDW Differential Plt Count MPV Immature Gran % (Auto) Neut % (Auto) Lymph % (Auto) Kay % (Auto) Eos % (Auto) Baso % (Auto) Absolute Neuts (auto) Absolute Lymphs (auto) Total Counted Neutrophils % (Manual) Band Neutrophils % Lymphocytes % (Manual) Monocytes % (Manual) Eosinophils % (Manual) Basophils % (Manual) Metamyelocytes % Myelocytes % Promyelocytes % Blast Cells % Plasma Cell % (Manual) Other Cells % Nucleated RBCs/100 WBC Differential Comment Diff Path Review Hypersegmented Neuts Atypical Lymphocytes Reactive Lymphocytes Smudge Cells Toxic Granulation Dohle Bodies Jer Rods Platelet Estimate Plt Morphology Comment RBC Morphology Polychromasia Hypochromasia Poikilocytosis Basophilic Stippling Anisocytosis Microcytosis Macrocytosis Spherocytes Sickle Cells Target Cells Tear Drop Cells Ovalocytes Stomatocytes [place] Bodies Ninety Six Cells Bite Cells Acanthocytes (Spur) Rouleaux Schistocytes Sodium Potassium Chloride Carbon Dioxide Anion Gap BUN Creatinine Estim Creat Clear Calc Est GFR (MDRD) Af Amer Est GFR (MDRD) Non-Af BUN/Creatinine Ratio Glucose Lactic Acid Calcium Total Bilirubin Direct Bilirubin AST ALT Alkaline Phosphatase Total Creatine Kinase Total Protein Albumin Globulin Triglycerides Lipase Blood Type A NEGATIVE Antibody Screen NEGATIVE Clinical Impression(s) from Imaging Studies Chest X-Ray 12/06/18 01:23 IMPRESSION: 1. Worsening congestive heart failure. 2. Stable small left pleural effusion. Electronically Signed: Robert García MD at 2:31 EST Tel , Service support , Abdomen/Pelvis CT 12/06/18 01:36 IMPRESSION: 1. Pneumatosis of the cecum and descending colon with extensive portal venous gas throughout the mesenteric venous channels and into the periphery of the liver parenchyma. 2. Bibasilar airspace infiltration, either representing confluent dependent edema or bibasilar pneumonia. 3. Trace bilateral pleural effusions. 4. Left renal atrophy 5. Simple appearing cyst off of the lateral midpole of the left kidney. Electronically Signed: Robert García MD at 2:41 EST Tel , Service support , ADDENDUM: 12/06/18 0253 IMPRESSION: 1. Pneumatosis of the cecum and descending colon with extensive portal venous gas throughout the mesenteric venous channels and into the periphery of the liver parenchyma. 2. Bibasilar airspace infiltration, either representing confluent dependent edema or bibasilar pneumonia. 3. Trace bilateral pleural effusions. 4. Left renal atrophy 5. Simple appearing cyst off of the lateral midpole of the left kidney. N.B. : The above information has been verbally conveyed by Robert García MD to Andreia Jeffery MD, MD, on 12/06/2018 02:45:55 (ET). Electronically Signed: Robert García MD at 2:41 EST Tel , Service support , Chest X-Ray 12/06/18 08:29 IMPRESSION: The tip of the endotracheal tube is at 6.5 sinus proximal to the iliana. The tip of the nasogastric tube is in the body of the stomach just distal to the gastroesophageal junction. Left basilar atelectasis and/or infiltrate with small left effusion. Central vascular congestion. Electronically Signed: Deven Hensley MD at 9:46 EST , Service support , Assessment/Plan Active and Suspected Problems (Last Reviewed 11/26/18 @ 18:35 by Chris Stark DO) Colonic ischemia (Acute) RECOMMENDATIONS: 1. Place central line 2. Attempt to limit IV fluids 3. Hemodialysis today 4. Spontaneous breathing and awakening trial per protocol 5. Possible pressor therapy IMPRESSIONS: 1. Septic shock/relative adrenal insufficiency secondary to ischemic colitis Patient with progressive lower blood pressures while in the intensive care unit. Central line has been placed and patient was placed on pressor therapy. Patient is on empiric Zosyn therapy for possible translocation of bacteria with ischemic colitis. Will have to watch volume status closely as patient does have a history of congestive heart failure in the recent past. Patient does take 10 mg of prednisone on a daily basis. Will place patient on stress dose steroids. 2. Acute respiratory failure secondary to ischemic colitis/presumed COPD Patient appears to be doing well on the current settings. Chest x-ray shows appropriate placement of endotracheal tube. We will continue with mechanical ventilation overnight. Spontaneous breathing and awakening trials tomorrow. Patient will have to be watched closely for the development of congestive heart failure as this has been a problem in the past. Patient does have a reported underlying history of COPD, but pulmonary function tests are not available for quantification and clarification of baseline lung function. Bronchodilators have been ordered. 3. Embolic ischemic colitis status post resection postop day #0 Surgery is currently following. Do anticipate patient received significant amounts of fluid in the OR. Will need to follow closely. Patient's ostomy appears to be functioning well at this point. Surgery following. 4. Chronic diastolic congestive heart failure Patient with multiple admissions in the past secondary to congestive heart failure complicated by end-stage renal disease. Home medical therapy will be held for now given acute condition. These can be reinitiated in a stepwise fashion after the acute condition. 5. Peripheral artery disease/hypertension/hyperlipidemia/end-stage renal disease/anemia of chronic disease Complicates care, management, recovery and prognosis. Renal has been consulted for hemodialysis. Blood pressure medication should be held secondary to acute condition. TIME: 80 minutes of critical care time spent addressing patient's acute respiratory failure, septic shock, ischemic colitis, congestive heart failure, review of all data and collaboration with care team (9 AM to 11:50 AM) Code Visit Procedures: 77810 Critial Care Addl 30 Min 9xxxx: [id number] Critical care first hour
[2018-12-06] MEDS: Ipratropium/Albuterol Sulfate 3 ML AMPUL.NEB INHALATION ×3 (10:18→22:47)
--- NOTE | 2018-12-06 10:59 | PCM.OPRPT ---
Report of Operation Date of Procedure: 12/06/18 Surgery/Procedure Performed:: Triple-lumen catheter insertion Description of Surgical Findings:: Central line placement procedure note Indication: IV access/hemodynamic instability/vasoactive medications Procedure: A time-out was completed to verify correct patient, indication, medication allergies, procedure, coagulation studies, informed consent signed, and equipment needed. The patient was placed in the supine position for a central line placement to the left IJ vein. The patients left neck was prepped using chlorhexidine and a full body sterile drape was applied. 1% lidocaine was used to anesthetize the surrounding skin. A 7fr 20 cm blue guard triple lumen catheter introduced into the internal jugular vein using the modified Seldinger technique with the assistance of ultrasound. The catheter was threaded smoothly over the guidewire, the guidewire was removed easily, nonpulsatile blood returned. All ports were aspirated of air and flushed with sterile saline. The catheter was sutured in place and covered with an occlusive dressing impregnated with chlorhexidine. Post-procedure: The patient tolerated the procedure well. Vital signs remained stable. EBL 5cc. No complications. Chest X Ray ordered to confirm tip placement and the absence of pneumothorax. Code Visit Procedures: [id number] Insert Non-tunnel CV Cath
--- NOTE | 2018-12-06 11:12 | RAD_ITS ---
STUDY: X-RAY CHEST REASON FOR EXAM: Male, 68 years old. Line placement on the left TECHNIQUE: Single AP portable view of the chest. COMPARISON: 12/06/2018 FINDINGS: In the interval, left IJ central venous catheter has been placed with its tip crossing midline and entering the mid SVC level. No definite pneumothorax on the left. Otherwise, stable ET tube, enteric tube and right subclavian central venous catheter. Remainder is unchanged RAD/CXR for Line Placement IMPRESSION: Placement of left IJ central venous catheter as above. No pneumothorax. Remainder is essentially unchanged Electronically Signed: Salas Mancia DO at 12:49 EST Tel , Service support ,
[2018-12-06] MEDS: Piperacil/Tazobactam 3.375 GM/50 ML ML IV (11:22)
[2018-12-06] MEDS: Chlorhexidine 15 ML PO ×2 (11:31→21:23)
--- NOTE | 2018-12-06 11:31 | CASEMGMT ---
SW participated in ICU rounds this morning, pt's daughters and grandson present. Pt was here recently, in October. Pt's daughters Obdulia Guillen, son Lester, Heidy and two grandchildren are here now. SW spoke w/family briefly in waiting room, verified information from the last visit. PCP: Dr. Tania Berger Pharmacy: [facility] [place] Insurance/Prescription Assistance: [employer] Medicare LW/POA: Pt does not have these documents completed at this time, information given to him on a recent admission. LNOK: lives w/, has 4 children, grandchildren. Three children are local, one is in [place]. Pt lives w/, one story home, 2 steps to enter. Transportation: Pt and drive DME: Cane, walker, Cpap, nebulizer, O2 2 L/M. [employer] is O2 supplier. HHC/SNF: Upon last admission, no SNF, no HHC history. Dialysis: Goes to [facility], M,W,F, 12:30 chair time. Also on last admission pt said he sees Dr. Quintero for nephrology, Dr. Barrientos for cardiology. Discharge plan is to be determined. Pt is currently on a ventilator at present. SW offered support to family. SW/CM will continue to follow for support and discharge needs. FABIAN Momin, DIRECTOR OF CLINICAL TRIALS
--- NOTE | 2018-12-06 11:35 | DIALYSIS ---
[employer] reports Surgery used pt's R.Chest CVC during surgery and was returned to unit with fluids running through this access. This RN assisted with de-accessing CVC line. CVC was flushed with saline and Heparin instilled to each lumen fill volume using aseptic technique. capped and clamped. Primary RN at bedside.
[2018-12-06] MEDS: Albumin Human 25% (100 mL) 25 GM/100 ML BAG IV ×3 (15:00→21:35)
[2018-12-06] MEDS: Hydrocortisone Sod Succinate 100 MG/2 ML Vial IV ×2 (16:12→21:23)
[2018-12-06] MEDS: Heparin 10,000 UNITS/10 ML Vial IV (16:13)
--- NOTE | 2018-12-06 16:48 | DIALYSIS ---
HD discontinued 1 hour and 13min early d/t hypotension. Dr. Livingston is aware. Albumin was given as ordered. Bp stable once the blood was returned. Used right chest wall catheter. Catheter closed with heparin per fill volume. See tx sheet for more details. Report was given to RAYMOND Chaney
--- NOTE | 2018-12-06 19:50 | NURSING ---
Due to limited access, at this time we have disconnected the CVP line to run the albumin once the albumin is complete we will continue with CVP line.
[2018-12-06] MEDS: 0.9% NaCl Peripheral Flush Adult/Peds IV (21:25)
[2018-12-07] VITALS (57 sets, daily range): BP systolic 97–167; BP diastolic 24–118; PULSE 69–119; RESP 12–26; TEMP 36.3–38.9; O2SAT 84–100
--- NOTE | 2018-12-07 | NURSING ---
At this time, the CVP was turned back on, albumin is now finished.
[2018-12-07] MEDS: Ipratropium/Albuterol Sulfate 3 ML AMPUL.NEB INHALATION ×6 (02:50→22:08)
[2018-12-07 05:09] LABS: Absolute Lymphocyte Count 0.45 X10^3/ul (0.83-4.51); Absolute Neutrophil Count 14.4 X10^3/uL (2.0-7.7); Basophil# 0.01 X10^3/uL; Basophil% 0.1 % (0-1); Hematocrit 18.6 % (40-54); Lymphocyte # 0.45 X10^3/ul (4.0); Lymphocyte % 2.9 % (19-41); Mean Corp Hgb Conc 29.6 g/gl (32-36); Mean Corpuscular Hgb 31.8 pg (27.0-32.0); Mean Corpuscular Volume 107.5 fL (80-94); Mean Platelet Vol. 10.6 fl (6.2-12.0); Monocyte# 0.85 X10^3/uL; Monocyte% 5.4 % (0-10); Neutrophil # 14.42 X10^3/uL (2.7-7.7); Neutrophil % 91.3 % (47-70); Platelet Count 124 K/mm3 (150-450); RBC Distribution Width CV 17.6 % (11.6-14.6); RBC Distribution Width SD 64.6 fl (35.1-43.9); Red Blood Count 1.73 M/mm3 (4.6-6.2); White Blood Count 15.8 K/mm3 (4.4-11.0)
[2018-12-07] MEDS: 0.9% NaCl Peripheral Flush Adult/Peds IV ×2 (05:44→20:27)
[2018-12-07] MEDS: Hydrocortisone Sod Succinate 100 MG/2 ML Vial IV ×3 (05:44→21:15)
[2018-12-07 05:50] LABS: ALB/GLOB Ratio 1.4 RATIO (0.9-2.4); AST(SGOT) 308 U/L (15-37); Alanine Aminotransfer ALT/SGPT 196 U/L (16-61); Albumin, Serum 3.3 g/dL (3.2-5.0); Alkaline Phosphatase 38 U/L (45-117); Anion Gap 16 (5-15); BUN 58 mg/dL (7-18); BUN/Creat Ratio 10.6 RATIO (10-20); Calcium,Total 6.8 mg/dL (8.5-10.1); Chloride 95 mmol/L (98-107); Creatinine, Serum 5.46 mg/dL (0.70-1.30); EST Glomerular Filtration Rate 11 mL/min (>60); Est Glom Filt Rate - Afr Amer 14 mL/min (>60); Globulin 2.3 g/dL (2.2-4.2); Glucose 139 mg/dL (74-106); Magnesium 2.1 mg/dL (1.6-2.6); Phosphorus 8.6 mg/dL (2.5-4.9); Potassium 4.7 mmol/L (3.5-5.1); Protein, Total 5.6 g/dL (6.4-8.2); Sodium Level 135 mmol/L (136-145)
[2018-12-07 06:02] LABS: Hematocrit 17.3 % (40-54)
[2018-12-07 06:04] LABS: Differential Indicated SCAN CRITERIA MET; Hemoglobin 5.5 g/dl (13.0-16.5); POSITIVE COUNT YES; POSITIVE DIFFERENTIAL YES; POSITIVE MORPHOLOGY NO
[2018-12-07 06:05] LABS: Anisocytosis 2+; Differential Comment SCAN; Hypochromasia 2+; Microcytosis 1+
--- NOTE | 2018-12-07 06:27 | RAD_ITS ---
HISTORY: CHECK OG TUBE PLACEMENTFILM #1 OF 2 EXAM: Supine abdomen 0636 hours COMPARISON: 12/06/2018 FINDINGS NG tube with the tube tip at the GE junction and the tube should be advanced. Previous median sternotomy. Nonobstructive bowel gas pattern. Extensive atherosclerotic calcifications including central calcifications within both kidneys. Midline abdominal surgical leslie RAD/Abdomen Single View (Portable) IMPRESSION: 1. The NG tube tip lies at the GE junction and should be advanced. 2. No bowel obstruction. Chronic changes, as above. ADDENDUM: Repeat supine abdomen 12/07/2018 Repeat supine view of the abdomen was obtained following advancement of the NG tube placing the tip within the stomach lumen. Abdominal findings are otherwise unchanged. Extensive atherosclerotic calcifications. No bowel obstruction. ADDENDUM IMPRESSION: Follow-up exam shows satisfactory position of the NG tube tip within the stomach. at 0714 Reported and signed by: Asif Gannon MD Electronically Signed: Asif Gannon, at 7:13 EST Tel , Service support ,
--- NOTE | 2018-12-07 06:47 | RAD_ITS ---
STUDY: X-RAY - ABDOMEN/PELVIS REASON FOR EXAM: Male, 68 years old. Oral gastric tube placement. TECHNIQUE: Single AP view of the abdomen / pelvis. COMPARISON: Comparison is made with prior study done earlier in the morning. FINDINGS: The tip of the orogastric tube is in the body of the stomach. There is an unremarkable bowel gas pattern. Surgical clips are seen in the lower abdomen and upper pelvis. Vascular calcification. Stable 8.2 mm x 5.3 mm rounded sclerotic density in the left sacrum. This may represent a bone. RAD/Abdomen Single View (Portable) IMPRESSION: The tip of the orogastric tube is in the body of the stomach. Electronically Signed: Deven Hensley MD at 9:08 EST , Service support ,
[2018-12-07] MEDS: Acetaminophen 650 MG/20 ML UDC GT ×2 (08:36→16:42)
--- NOTE | 2018-12-07 08:38 | PCM.PN.SRG ---
Patient Problems: Active and Suspected Problems (Last Reviewed 11/26/18 @ 18:35 by Chris Stark DO) Colonic ischemia (Acute) Subjective: Patient was awake on the ventilator this morning and was able to communicate with me. He does report some abdominal pain. - Physical Exam General: Alert, Cooperative, No apparent distress HEENT: Atraumatic Neck: No JVD Lungs: - - Intubated on a ventilator Cardiovascular: Regular Rhythm, Tachycardic Abdomen: Soft, Tender - Mildly tender diffusely. No guarding or rebound, - - Ileostomy is pink with stool output Mucous fistula is pink with no output. Vital Signs Temp Pulse Resp BP Pulse Ox 102.0 F H 83 16 146/34 H 99 12/07/18 08:00 12/07/18 08:15 12/07/18 08:15 12/07/18 08:15 12/07/18 08:15 Oxygen Flow Rate (L/min) 30 Oxygen Delivery Method Mechanical Ventilator Weight: 176 lb 12.972 oz Body Mass Index (BMI) 26.4 Finger Stick Blood Glucose 200 Intake and Output for Last 24 Hours 12/05/18 12/06/18 12/07/18 23:59 23:59 23:59 Intake Total 1127 / 1127 1026.9 / 1026.9 Output Total 0 / 0 125 / 125 Balance 1127 / 1127 901.9 / 901.9 Laboratory Tests Past 24 Hrs 12/06/18 12/06/18 12/07/18 01:26 05:08 04:15 WBC 15.8 H RBC 1.73 L Hgb 5.5 L* Hct 18.6 L MCV 107.5 H MCH 31.8 MCHC 29.6 L RDW 17.6 H RDW Differential 64.6 H Plt Count 124 L MPV 10.6 Immature Gran % (Auto) 0.300 Neut % (Auto) 91.3 H Lymph % (Auto) 2.9 L [place] % (Auto) 5.4 Eos % (Auto) 0.0 Baso % (Auto) 0.1 Absolute Neuts (auto) 14.4 H Absolute Lymphs (auto) 0.45 L Total Counted Not Reportable Differential Comment SCAN Diff Path Review May foll Hypochromasia 2+ Anisocytosis 2+ Microcytosis 1+ Sodium Potassium Chloride Carbon Dioxide Anion Gap BUN Creatinine Estim Creat Clear Calc Est GFR (MDRD) Af Amer Est GFR (MDRD) Non-Af BUN/Creatinine Ratio Glucose Calcium Phosphorus Magnesium Total Bilirubin AST ALT Alkaline Phosphatase Total Creatine Kinase 92 Total Protein Albumin Globulin Albumin/Globulin Ratio Triglycerides 184 Crossmatch See Detail 12/07/18 12/07/18 04:15 05:40 WBC RBC Hgb 5.3 L* Hct 17.3 L MCV MCH MCHC RDW RDW Differential Plt Count MPV Immature Gran % (Auto) Neut % (Auto) Lymph % (Auto) [place] % (Auto) Eos % (Auto) Baso % (Auto) Absolute Neuts (auto) Absolute Lymphs (auto) Total Counted Differential Comment Diff Path Review Hypochromasia Anisocytosis Microcytosis Sodium 135 L Potassium 4.7 Chloride 95 L Carbon Dioxide 24.0 Anion Gap 16 H BUN 58 H Creatinine 5.46 H Estim Creat Clear Calc 12.70 Est GFR (MDRD) Af Amer 14 L Est GFR (MDRD) Non-Af 11 L BUN/Creatinine Ratio 10.6 Glucose 139 H Calcium 6.8 L Phosphorus 8.6 H Magnesium 2.1 Total Bilirubin 0.80 AST 308 H ALT 196 H Alkaline Phosphatase 38 L Total Creatine Kinase Total Protein 5.6 L Albumin 3.3 Globulin 2.3 Albumin/Globulin Ratio 1.4 Triglycerides Crossmatch Medical Necessity - Tobacco Use Smoking Status: Current every day smoker Assessment/Plan All Active Problems (Last Reviewed 11/26/18 @ 18:35 by Chris Stark DO) Acute respiratory insufficiency (Acute) (HFpEF) heart failure with preserved ejection fraction (Acute) Hyperkalemia (Acute) Colonic ischemia (Acute) HCAP (healthcare-associated pneumonia) (Acute) Abnormal cardiac enzyme level (Acute) DAI (acute kidney injury) (Resolved) Hypertensive emergency (Resolved) Problem with dialysis access (Resolved) S/P dialysis catheter insertion (Resolved 05/22/18) History of thoracentesis (Resolved 05/22/18) Acute renal failure superimposed on chronic kidney disease (Resolved) Acute respiratory failure with hypoxia (Acute) Leukocytosis (Resolved) 68-year-old male status post right and transverse hemicolectomy for ischemia 1. Patient remains ventilated but he is likely to be extubated today. Patient remains on pressors but his pressor requirement has decreased. Morning hemoglobin is 5.3 this is likely correct as yesterday's level was likely hemoconcentrated. Blood and platelets to be infused. I do not believe he is actively bleeding has a stomach is nondistended and there is no guarding or rigidity. 2. 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 There is stool output from the ileostomy. He had a KUB this morning which shows no dilation. Once he is extubated he can start a clear liquid diet and see how he tolerates it. 3. Patient received dialysis yesterday. He may need dialysis again today after receiving blood products. 4. Continue antibiotics as the patient's white count has gone up. Patient likely had release of inflammatory mediators during surgery yesterday. Armen Henderson MD Pager: [facility] [address] [place] [address], [address] [place] [phone] Office:
--- NOTE | 2018-12-07 09:32 | PN.RENAL_ITS ---
Patient Problems: Active and Suspected Problems (Last Reviewed 11/26/18 @ 18:35 by Chris Stark DO) Colonic ischemia (Acute) Subjective: Pt was extubated this morning. On NC. Complaining of abdominal pain. Currently off pressors. He is receiving RBC transfusion this morning little SOB - Physical Exam General: Alert, Oriented x3 HEENT: Atraumatic Oral: Moist Mucosa Neck: Supple, No JVD Lungs: Normal air movement, Wheezes Cardiovascular: Regular rate, Regular Rhythm, Normal S1, Normal S2 Abdomen: - - mildly distended + BS. Extremities: No clubbing, No cyanosis, Edema - +1 edema of LE Skin: No rashes Musculoskeletal: No Muscle Wasting Lymphatic: No Cervical, Supraclavicular, or Inguinal Adenopathy Neurological: Neuro grossly intact Psych/Mental Status: Normal Affect, Appropriate Vital Signs Temp Pulse Resp BP Pulse Ox 102.0 F H 83 16 136/30 H 99 12/07/18 08:00 12/07/18 08:15 12/07/18 08:15 12/07/18 09:00 12/07/18 08:15 Oxygen Flow Rate (L/min) 30 Oxygen Delivery Method Mechanical Ventilator Weight: 80.2 kg Body Mass Index (BMI) 26.4 Finger Stick Blood Glucose 200 Intake and Output for Last 24 Hours 12/05/18 12/06/18 12/07/18 23:59 23:59 23:59 Intake Total 1127 / 1127 1026.9 / 1026.9 Output Total 0 / 0 125 / 125 Balance 1127 / 1127 901.9 / 901.9 Laboratory Tests Past 24 Hrs 12/06/18 12/07/18 12/07/18 05:08 04:15 04:15 WBC 15.8 H RBC 1.73 L Hgb 5.5 L* Hct 18.6 L MCV 107.5 H MCH 31.8 MCHC 29.6 L RDW 17.6 H RDW Differential 64.6 H Plt Count 124 L MPV 10.6 Immature Gran % (Auto) 0.300 Neut % (Auto) 91.3 H Lymph % (Auto) 2.9 L [place] % (Auto) 5.4 Eos % (Auto) 0.0 Baso % (Auto) 0.1 Absolute Neuts (auto) 14.4 H Absolute Lymphs (auto) 0.45 L Total Counted Not Reportable Differential Comment SCAN Diff Path Review May foll Hypochromasia 2+ Anisocytosis 2+ Microcytosis 1+ Sodium 135 L Potassium 4.7 Chloride 95 L Carbon Dioxide 24.0 Anion Gap 16 H BUN 58 H Creatinine 5.46 H Estim Creat Clear Calc 12.70 Est GFR (MDRD) Af Amer 14 L Est GFR (MDRD) Non-Af 11 L BUN/Creatinine Ratio 10.6 Glucose 139 H Calcium 6.8 L Phosphorus 8.6 H Magnesium 2.1 Total Bilirubin 0.80 AST 308 H ALT 196 H Alkaline Phosphatase 38 L Total Protein 5.6 L Albumin 3.3 Globulin 2.3 Albumin/Globulin Ratio 1.4 Crossmatch See Detail 12/07/18 05:40 WBC RBC Hgb 5.3 L* Hct 17.3 L MCV MCH MCHC RDW RDW Differential Plt Count MPV Immature Gran % (Auto) Neut % (Auto) Lymph % (Auto) [place] % (Auto) Eos % (Auto) Baso % (Auto) Absolute Neuts (auto) Absolute Lymphs (auto) Total Counted Differential Comment Diff Path Review Hypochromasia Anisocytosis Microcytosis Sodium Potassium Chloride Carbon Dioxide Anion Gap BUN Creatinine Estim Creat Clear Calc Est GFR (MDRD) Af Amer Est GFR (MDRD) Non-Af BUN/Creatinine Ratio Glucose Calcium Phosphorus Magnesium Total Bilirubin AST ALT Alkaline Phosphatase Total Protein Albumin Globulin Albumin/Globulin Ratio Crossmatch Medical Necessity - Tobacco Use Smoking Status: Current every day smoker Assessment/Plan All Active Problems (Last Reviewed 11/26/18 @ 18:35 by Chris Stark DO) Acute respiratory insufficiency (Acute) (HFpEF) heart failure with preserved ejection fraction (Acute) Hyperkalemia (Acute) Colonic ischemia (Acute) HCAP (healthcare-associated pneumonia) (Acute) Abnormal cardiac enzyme level (Acute) DAI (acute kidney injury) (Resolved) Hypertensive emergency (Resolved) Problem with dialysis access (Resolved) S/P dialysis catheter insertion (Resolved 05/22/18) History of thoracentesis (Resolved 05/22/18) Acute renal failure superimposed on chronic kidney disease (Resolved) Acute respiratory failure with hypoxia (Acute) Leukocytosis (Resolved) 1-end-stage renal disease on Tuesday hemodialysis schedule. Patient goes to [facility]. Last HD session was on 12/06. Pt couldn't tolerate UF due hemodynamic instability. No need for HD session this morning. If patient becomes more SOB, will arrange HD session later. otherwise, will do HD tomorrow HD access Right IJ TC 2-anemia:Gfb < 7.0 this am . 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 Status post colectomy with colostomy. Will defer the management to the surgery team. 4-Respiratory failure. extubated. On NC. Renal team will continue to follow. Please call with any question
[2018-12-07] MEDS: fentaNYL 100 MCG/2 ML Ampul 25 MCG IV ×3 (10:00→20:27)
--- NOTE | 2018-12-07 10:02 | PCM.PN.INT ---
Subjective: Patient did well overnight. No acute issues were reported. Patient was taken off of vasopressin at approximately midnight and was on Levophed this morning. Patient was able to pass a spontaneous breathing trial and was extubated under my direct supervision. No complications were noted. Patient is reporting some abdominal pain General: Alert, Oriented x3, Cooperative, No apparent distress, - - Appears older than stated age. No conversational dyspnea. HEENT: Atraumatic, PERRLA, EOMI, Normocephalic, - - No scleral icterus or injection noted. Oral: Moist Mucosa, No Gingival or Mucosal Lesions/ Ulcerations Neck: Supple, No Nodes, Trachea Midline, JVD, Right Lungs: No rhonchi, No wheeze, No rales, Diminished, - - Symmetric expansion. Cardiovascular: Regular rate, Regular Rhythm, Normal S1, Normal S2, Murmur, No rub noted, No Gallop Abdomen: Bowel Sounds Present, Soft, Tender - No rebound or guarding reported Extremities: No clubbing, No cyanosis, Capillary Refill Less than 3 Seconds, Edema Skin: - - No significant change compared to previous Musculoskeletal: No Tenderness to Palpation of Joints or Extremities Lymphatic: No Cervical, Supraclavicular, or Inguinal Adenopathy Neurological: Cranial nerves II-XII grossly intact, Neuro grossly intact, Motor Exam 5/5 strength throughout Psych/Mental Status: Normal Affect, Appropriate Vital Signs Temp Pulse Resp BP Pulse Ox 38.9 C H 87 20 H 136/30 H 99 12/07/18 08:00 12/07/18 08:40 12/07/18 08:40 12/07/18 09:00 12/07/18 08:40 Oxygen Flow Rate (L/min) 2 Oxygen Delivery Method Nasal Cannula Weight: 80.2 kg Body Mass Index (BMI) 26.4 Finger Stick Blood Glucose 200 Intake and Output for Last 24 Hours 12/05/18 12/06/18 12/07/18 23:59 23:59 23:59 Intake Total 1127 / 1127 1026.9 / 1026.9 Output Total 0 / 0 125 / 125 Balance 1127 / 1127 901.9 / 901.9 Labs (Last 48 Hours) 12/06/18 12/06/18 12/06/18 01:26 01:26 01:26 WBC Cancelled Corrected WBC Cancelled RBC Cancelled Hgb Cancelled Hct Cancelled MCV Cancelled MCH Cancelled MCHC Cancelled RDW Cancelled RDW Differential Cancelled Plt Count Cancelled MPV Cancelled Immature Gran % (Auto) Cancelled Neut % (Auto) Cancelled Lymph % (Auto) Cancelled [place] % (Auto) Cancelled Eos % (Auto) Cancelled Baso % (Auto) Cancelled Absolute Neuts (auto) Cancelled Absolute Lymphs (auto) Cancelled Total Counted Cancelled Neutrophils % (Manual) Cancelled Band Neutrophils % Cancelled Lymphocytes % (Manual) Cancelled Monocytes % (Manual) Cancelled Eosinophils % (Manual) Cancelled Basophils % (Manual) Cancelled Metamyelocytes % Cancelled Myelocytes % Cancelled Promyelocytes % Cancelled Blast Cells % Cancelled Plasma Cell % (Manual) Cancelled Other Cells % Cancelled Nucleated RBCs/100 WBC Cancelled Differential Comment Cancelled Diff Path Review Cancelled Hypersegmented Neuts Cancelled Atypical Lymphocytes Cancelled Reactive Lymphocytes Cancelled Smudge Cells Cancelled Toxic Granulation Cancelled Dohle Bodies Cancelled Jer Rods Cancelled Platelet Estimate Cancelled Plt Morphology Comment Cancelled RBC Morphology Cancelled Polychromasia Cancelled Hypochromasia Cancelled Poikilocytosis Cancelled Basophilic Stippling Cancelled Anisocytosis Cancelled Microcytosis Cancelled Macrocytosis Cancelled Spherocytes Cancelled Sickle Cells Cancelled Target Cells Cancelled Tear Drop Cells Cancelled Ovalocytes Cancelled Stomatocytes Cancelled [place] Bodies Cancelled Zach Cells Cancelled Bite Cells Cancelled Acanthocytes (Spur) Cancelled Rouleaux Cancelled Schistocytes Cancelled Sodium 128 L Potassium 4.7 Chloride 90 L Carbon Dioxide 20.0 L Anion Gap 18 H BUN 75 H Creatinine 6.68 H Estim Creat Clear Calc 10.38 Est GFR (MDRD) Af Amer 11 L Est GFR (MDRD) Non-Af 9 L BUN/Creatinine Ratio 11.2 Glucose 233 H Lactic Acid Calcium 8.0 L Phosphorus Magnesium Total Bilirubin 0.60 Direct Bilirubin 0.11 AST 40 H ALT 21 Alkaline Phosphatase 74 Total Creatine Kinase Total Protein 6.9 Albumin 3.2 Globulin 3.7 Albumin/Globulin Ratio Triglycerides Lipase 346 Blood Type Antibody Screen Crossmatch 12/06/18 12/06/18 12/06/18 01:26 01:59 03:00 WBC 11.8 H Corrected WBC RBC 2.80 L Hgb 9.0 L Hct 28.9 L MCV 103.2 H MCH 32.1 H MCHC 31.1 L RDW 18.2 H RDW Differential 68.0 H Plt Count 154 MPV 10.0 Immature Gran % (Auto) 0.300 Neut % (Auto) 96.8 H Lymph % (Auto) 2.5 L [place] % (Auto) 0.3 Eos % (Auto) 0.1 Baso % (Auto) 0.0 Absolute Neuts (auto) 11.4 H Absolute Lymphs (auto) 0.30 L Total Counted Not Reportable Neutrophils % (Manual) Band Neutrophils % Lymphocytes % (Manual) Monocytes % (Manual) Eosinophils % (Manual) Basophils % (Manual) Metamyelocytes % Myelocytes % Promyelocytes % Blast Cells % Plasma Cell % (Manual) Other Cells % Nucleated RBCs/100 WBC Differential Comment SCANNED Diff Path Review Hypersegmented Neuts Atypical Lymphocytes Reactive Lymphocytes Smudge Cells Toxic Granulation Dohle Bodies Jer Rods Platelet Estimate ADEQUATE Plt Morphology Comment RBC Morphology Polychromasia Hypochromasia Poikilocytosis Basophilic Stippling Anisocytosis 2+ Microcytosis Macrocytosis 1+ Spherocytes Sickle Cells Target Cells Tear Drop Cells RARE Ovalocytes Stomatocytes [place] Bodies Zach Cells Bite Cells Acanthocytes (Spur) Rouleaux Schistocytes Sodium Potassium Chloride Carbon Dioxide Anion Gap BUN Creatinine Estim Creat Clear Calc Est GFR (MDRD) Af Amer Est GFR (MDRD) Non-Af BUN/Creatinine Ratio Glucose Lactic Acid 1.4 Calcium Phosphorus Magnesium Total Bilirubin Direct Bilirubin AST ALT Alkaline Phosphatase Total Creatine Kinase 92 Total Protein Albumin Globulin Albumin/Globulin Ratio Triglycerides 184 Lipase Blood Type Antibody Screen Crossmatch 12/06/18 12/06/18 12/07/18 05:08 05:08 04:15 WBC 15.8 H Corrected WBC RBC 1.73 L Hgb 5.5 L* Hct 18.6 L MCV 107.5 H MCH 31.8 MCHC 29.6 L RDW 17.6 H RDW Differential 64.6 H Plt Count 124 L MPV 10.6 Immature Gran % (Auto) 0.300 Neut % (Auto) 91.3 H Lymph % (Auto) 2.9 L [place] % (Auto) 5.4 Eos % (Auto) 0.0 Baso % (Auto) 0.1 Absolute Neuts (auto) 14.4 H Absolute Lymphs (auto) 0.45 L Total Counted Not Reportable Neutrophils % (Manual) Band Neutrophils % Lymphocytes % (Manual) Monocytes % (Manual) Eosinophils % (Manual) Basophils % (Manual) Metamyelocytes % Myelocytes % Promyelocytes % Blast Cells % Plasma Cell % (Manual) Other Cells % Nucleated RBCs/100 WBC Differential Comment SCAN Diff Path Review May foll Hypersegmented Neuts Atypical Lymphocytes Reactive Lymphocytes Smudge Cells Toxic Granulation Dohle Bodies Jer Rods Platelet Estimate Plt Morphology Comment RBC Morphology Polychromasia Hypochromasia 2+ Poikilocytosis Basophilic Stippling Anisocytosis 2+ Microcytosis 1+ Macrocytosis Spherocytes Sickle Cells Target Cells Tear Drop Cells Ovalocytes Stomatocytes [place] Bodies Zach Cells Bite Cells Acanthocytes (Spur) Rouleaux Schistocytes Sodium Potassium Chloride Carbon Dioxide Anion Gap BUN Creatinine Estim Creat Clear Calc Est GFR (MDRD) Af Amer Est GFR (MDRD) Non-Af BUN/Creatinine Ratio Glucose Lactic Acid Calcium Phosphorus Magnesium Total Bilirubin Direct Bilirubin AST ALT Alkaline Phosphatase Total Creatine Kinase Total Protein Albumin Globulin Albumin/Globulin Ratio Triglycerides Lipase Blood Type A NEGATIVE Antibody Screen NEGATIVE Crossmatch See Detail 12/07/18 12/07/18 04:15 05:40 WBC Corrected WBC RBC Hgb 5.3 L* Hct 17.3 L MCV MCH MCHC RDW RDW Differential Plt Count MPV Immature Gran % (Auto) Neut % (Auto) Lymph % (Auto) [place] % (Auto) Eos % (Auto) Baso % (Auto) Absolute Neuts (auto) Absolute Lymphs (auto) Total Counted Neutrophils % (Manual) Band Neutrophils % Lymphocytes % (Manual) Monocytes % (Manual) Eosinophils % (Manual) Basophils % (Manual) Metamyelocytes % Myelocytes % Promyelocytes % Blast Cells % Plasma Cell % (Manual) Other Cells % Nucleated RBCs/100 WBC Differential Comment Diff Path Review Hypersegmented Neuts Atypical Lymphocytes Reactive Lymphocytes Smudge Cells Toxic Granulation Dohle Bodies Jer Rods Platelet Estimate Plt Morphology Comment RBC Morphology Polychromasia Hypochromasia Poikilocytosis Basophilic Stippling Anisocytosis Microcytosis Macrocytosis Spherocytes Sickle Cells Target Cells Tear Drop Cells Ovalocytes Stomatocytes [place] Bodies [place] Cells Bite Cells Acanthocytes (Spur) Rouleaux Schistocytes Sodium 135 L Potassium 4.7 Chloride 95 L Carbon Dioxide 24.0 Anion Gap 16 H BUN 58 H Creatinine 5.46 H Estim Creat Clear Calc 12.70 Est GFR (MDRD) Af Amer 14 L Est GFR (MDRD) Non-Af 11 L BUN/Creatinine Ratio 10.6 Glucose 139 H Lactic Acid Calcium 6.8 L Phosphorus 8.6 H Magnesium 2.1 Total Bilirubin 0.80 Direct Bilirubin AST 308 H ALT 196 H Alkaline Phosphatase 38 L Total Creatine Kinase Total Protein 5.6 L Albumin 3.3 Globulin 2.3 Albumin/Globulin Ratio 1.4 Triglycerides Lipase Blood Type Antibody Screen Crossmatch Clinical Impression(s) from Imaging Studies Chest X-Ray 12/06/18 11:12 IMPRESSION: Placement of left IJ central venous catheter as above. No pneumothorax. Remainder is essentially unchanged Electronically Signed: Salas Mancia DO at 12:49 EST Tel , Service support , KUB X-Ray 12/07/18 06:27 IMPRESSION: 1. The NG tube tip lies at the GE junction and should be advanced. 2. No bowel obstruction. Chronic changes, as above. ADDENDUM: Repeat supine abdomen 12/07/2018 Repeat supine view of the abdomen was obtained following advancement of the NG tube placing the tip within the stomach lumen. Abdominal findings are otherwise unchanged. Extensive atherosclerotic calcifications. No bowel obstruction. ADDENDUM IMPRESSION: Follow-up exam shows satisfactory position of the NG tube tip within the stomach. at 0714 Reported and signed by: Asif Gannon MD Electronically Signed: Asif Gannon, at 7:13 EST Tel , Service support , KUB X-Ray 12/07/18 06:47 IMPRESSION: The tip of the orogastric tube is in the body of the stomach. Electronically Signed: Deven Hensley MD at 9:08 EST , Service support , Medical Necessity - Tobacco Use Smoking Status: Current every day smoker Assessment/Plan All Active Problems (Last Reviewed 11/26/18 @ 18:35 by Chris Stark DO) Acute respiratory insufficiency (Acute) (HFpEF) heart failure with preserved ejection fraction (Acute) Hyperkalemia (Acute) Colonic ischemia (Acute) HCAP (healthcare-associated pneumonia) (Acute) Abnormal cardiac enzyme level (Acute) DAI (acute kidney injury) (Resolved) Hypertensive emergency (Resolved) Problem with dialysis access (Resolved) S/P dialysis catheter insertion (Resolved 05/22/18) History of thoracentesis (Resolved 05/22/18) Acute renal failure superimposed on chronic kidney disease (Resolved) Acute respiratory failure with hypoxia (Acute) Leukocytosis (Resolved) RECOMMENDATIONS: 1. Monitor blood pressures closely 2. Transfuse packed red blood cells 3. Hemodialysis today if needed for volume removal 4. Increase activity as tolerated IMPRESSIONS: 1. Septic shock/relative adrenal insufficiency secondary to ischemic colitis Central line has been placed and patient was placed on pressor therapy. Patient is on empiric Zosyn therapy for possible translocation of bacteria with ischemic colitis. Will have to watch volume status closely as patient does have a history of congestive heart failure in the recent past. Patient does take 10 mg of prednisone on a daily basis. Will place patient on stress dose steroids. Likely wean steroids over the next 48-72 hours if able to stay off of pressor agents. 2. Acute respiratory failure secondary to ischemic colitis/presumed COPD Patient successfully extubated. Patient on his baseline nasal cannula oxygen. Okay to continue with bronchodilators. Continue to follow closely. Encourage incentive spirometer and activity as tolerated. 3. Embolic ischemic colitis status post resection postop day #1 Surgery is currently following. Do anticipate patient received significant amounts of fluid in the OR. Will need to follow closely. Patient's ostomy appears to be functioning well at this point. Surgery following. 4. Chronic diastolic congestive heart failure Patient with multiple admissions in the past secondary to congestive heart failure complicated by end-stage renal disease. Home medical therapy will be held for now given acute condition. These can be reinitiated in a stepwise fashion after the acute condition. Will have to watch volume status closely given blood transfusions 5. Peripheral artery disease/hypertension/hyperlipidemia/end-stage renal disease/anemia of chronic disease Complicates care, management, recovery and prognosis. Renal has been consulted for hemodialysis. Blood pressure medication should be held secondary to acute condition. 6. Anemia Unclear etiology at this time. Patient may have had an element of hemoconcentration on presentation, but does not appear to be acutely losing blood at this time. Transfusions have been ordered. TIME: 40 minutes of critical care time spent addressing patient's acute respiratory failure, septic shock, ischemic colitis, congestive heart failure, review of all data and collaboration with care team (7 AM to 9 AM) Code Visit 9xxxx: [id number] Critical care first hour
--- NOTE | 2018-12-07 11:43 | NURSING ---
Removed the ostomy appliance from the ileostomy. there was a small amount of soft brown/green unformed stool in the appliance. peristomal skin is intact. some is dark red in color, moist and well budded. stoma measures approx 1 1/2 and is slightly oval in shape. cleansed peristomal skin with warm water and pat dry. applied a new flat Padmini appliance with a small amount of stoma paste. reviewed how to empty appliance as well with family. will give teaching booklet, as well as a step by step instruction on changing the appliance. family denies further questions or concerns at this time. will continue wound/ostomy teaching with family.
--- NOTE | 2018-12-07 12:00 | NURSING ---
wound photo: abdomen
[2018-12-07 13:40] LABS: Pathologist Review Reviewed
[2018-12-07 13:42] LABS: Hemoglobin 5.3 g/dl (13.0-16.5)
[2018-12-07 14:27] LABS: Hemoglobin 7.2 g/dl (13.0-16.5)
[2018-12-07] MEDS: oxyCODONE 5 MG Tablet PO ×2 (15:06→21:16)
[2018-12-07] MEDS: Metoprolol(XL)Succ 50 MG Tablet PO (21:34)
[2018-12-08] VITALS (35 sets, daily range): BP systolic 143–186; BP diastolic 36–89; PULSE 71–94; RESP 11–26; TEMP 36.4–37.2; O2SAT 95–100
[2018-12-08] MEDS: fentaNYL 100 MCG/2 ML Ampul 25 MCG IV (01:09)
[2018-12-08] MEDS: oxyCODONE 5 MG Tablet PO (04:06)
--- NOTE | 2018-12-08 04:51 | EKG12_ITS ---
Test Reason : Blood Pressure : / mmHG Vent. Rate : 090 BPM Atrial Rate : 072 BPM P-R Int : 000 ms QRS Dur : 092 ms QT Int : 372 ms P-R-T Axes : 000 071 085 degrees QTc Int : 455 ms Atrial fibrillation Minimal voltage criteria for LVH, may be normal variant Nonspecific ST abnormality Abnormal ECG When compared with ECG of 06-DEC-2018 08:31, MANUAL COMPARISON REQUIRED, DATA IS UNCONFIRMED Confirmed by VIKY MONTENEGRO, JOS ([id number]), index editor JAVON GONZALEZ ([id number]) on 12/14/2018 3:59:12 PM Referred By: Armen Henderson Confirmed By:JOS SALMON MD
[2018-12-08] MEDS: Hydrocortisone Sod Succinate 100 MG/2 ML Vial IV (05:10)
[2018-12-08] MEDS: 0.9% NaCl Peripheral Flush Adult/Peds IV ×2 (05:10→12:29)
[2018-12-08 06:01] LABS: Anion Gap 17 (5-15); BUN 79 mg/dL (7-18); BUN/Creat Ratio 11.9 RATIO (10-20); Calcium,Total 7.8 mg/dL (8.5-10.1); Chloride 94 mmol/L (98-107); Creatinine, Serum 6.62 mg/dL (0.70-1.30); EST Glomerular Filtration Rate 9 mL/min (>60); Est Glom Filt Rate - Afr Amer 11 mL/min (>60); Estimated Creatinine Clearance 10.48 ml/min; Glucose 128 mg/dL (74-106); Potassium 5.2 mmol/L (3.5-5.1); Sodium Level 133 mmol/L (136-145)
[2018-12-08 06:38] LABS: Absolute Lymphocyte Count 0.31 X10^3/ul (0.83-4.51); Absolute Neutrophil Count 14.1 X10^3/uL (2.0-7.7); Lymphocyte # 0.31 X10^3/ul (4.0); Mean Corp Hgb Conc 31.8 g/gl (32-36); Mean Corpuscular Hgb 31.5 pg (27.0-32.0); Mean Corpuscular Volume 99.1 fL (80-94); Mean Platelet Vol. 10.2 fl (6.2-12.0); Monocyte% 6.5 % (0-10); Neutrophil # 14.07 X10^3/uL (2.7-7.7); Neutrophil % 91.2 % (47-70); Platelet Count 90 K/mm3 (150-450); RBC Distribution Width CV 19.4 % (11.6-14.6); RBC Distribution Width SD 65.3 fl (35.1-43.9); Red Blood Count 2.22 M/mm3 (4.6-6.2); White Blood Count 15.4 K/mm3 (4.4-11.0)
[2018-12-08] MEDS: oxyCODONE 5 MG Tablet 10 MG PO ×2 (06:38→12:39)
[2018-12-08 06:39] LABS: Differential Indicated SCAN CRITERIA MET; POSITIVE COUNT NO; POSITIVE DIFFERENTIAL YES; POSITIVE MORPHOLOGY YES
[2018-12-08] MEDS: Ipratropium/Albuterol Sulfate 3 ML AMPUL.NEB INHALATION ×4 (06:39→22:50)
--- NOTE | 2018-12-08 06:48 | PCM.PN.INT ---
Subjective: Patient did well overnight. Patient was successfully extubated yesterday and has been on his 2 L nasal cannula. Patient does report significant worsening in abdominal pain compared to yesterday that he attributes to cough. Patient has been working with incentive spirometer. Fever curve is much improved. Patient's blood pressures have trended up. No active blood loss has been reported by patient or nursing. General: Alert, Oriented x3, Cooperative, - - Significant discomfort, especially with coughing. Mild conversational dyspnea. Appears older than stated age. HEENT: Atraumatic, PERRLA, EOMI, - - Slight scleral injection without icterus Oral: Moist Mucosa, No Gingival or Mucosal Lesions/ Ulcerations Neck: Supple, No Nodes, Trachea Midline, JVD, Right Lungs: No rhonchi, No rales, Diminished, Wheezes, - - Symmetric expansion. Cardiovascular: Regular rate, Regular Rhythm, Normal S1, Normal S2, No murmurs, No rub noted, No Gallop Abdomen: Bowel Sounds Present, Soft, Non Tender, Non-Distended Extremities: No cyanosis, Clubbing, Edema Skin: - - No significant change compared to previous Musculoskeletal: No Tenderness to Palpation of Joints or Extremities, No Muscle Wasting Lymphatic: No Cervical, Supraclavicular, or Inguinal Adenopathy Neurological: Cranial nerves II-XII grossly intact, Neuro grossly intact, Motor Exam 5/5 strength throughout Psych/Mental Status: Alert and oriented to time, place, person, mood and affect Vital Signs Temp Pulse Resp BP Pulse Ox 36.9 C 85 15 174/61 H 96 12/08/18 05:00 12/08/18 06:00 12/08/18 06:00 12/08/18 06:00 12/08/18 06:00 Oxygen Flow Rate (L/min) 2 Oxygen Delivery Method Nasal Cannula Weight: 77.6 kg Body Mass Index (BMI) 26.4 Finger Stick Blood Glucose 200 Intake and Output for Last 24 Hours 12/06/18 12/07/18 12/08/18 23:59 23:59 23:59 Intake Total 1127 / 1127 2066.9 / 2066.9 464 / 464 Output Total 0 / 0 125 / 125 0 / 0 Balance 1127 / 1127 1941.9 / 1941.9 464 / 464 Labs (Last 48 Hours) 12/06/18 12/06/1812/07/19 01:26 05:08 04:15 WBC 15.8 H RBC 1.73 L Hgb 5.5 L* Hct 18.6 L MCV 107.5 H MCH 31.8 MCHC 29.6 L RDW 17.6 H RDW Differential 64.6 H Plt Count 124 L MPV 10.6 Immature Gran % (Auto) 0.300 Neut % (Auto) 91.3 H Lymph % (Auto) 2.9 L [place] % (Auto) 5.4 Eos % (Auto) 0.0 Baso % (Auto) 0.1 Absolute Neuts (auto) 14.4 H Absolute Lymphs (auto) 0.45 L Total Counted Not Reportable Differential Comment SCAN Diff Path Review Reviewed Hypochromasia 2+ Anisocytosis 2+ Microcytosis 1+ Sodium Potassium Chloride Carbon Dioxide Anion Gap BUN Creatinine Estim Creat Clear Calc Est GFR (MDRD) Af Amer Est GFR (MDRD) Non-Af BUN/Creatinine Ratio Glucose Calcium Phosphorus Magnesium Total Bilirubin AST ALT Alkaline Phosphatase Total Creatine Kinase 92 Total Protein Albumin Globulin Albumin/Globulin Ratio Triglycerides 184 Crossmatch See Detail 12/07/18 12/07/18 12/07/18 04:15 05:40 14:15 WBC RBC Hgb 5.3 L* 7.2 L Hct 17.3 L 22.0 L MCV MCH MCHC RDW RDW Differential Plt Count MPV Immature Gran % (Auto) Neut % (Auto) Lymph % (Auto) [place] % (Auto) Eos % (Auto) Baso % (Auto) Absolute Neuts (auto) Absolute Lymphs (auto) Total Counted Differential Comment Diff Path Review Hypochromasia Anisocytosis Microcytosis Sodium 135 L Potassium 4.7 Chloride 95 L Carbon Dioxide 24.0 Anion Gap 16 H BUN 58 H Creatinine 5.46 H Estim Creat Clear Calc 12.70 Est GFR (MDRD) Af Amer 14 L Est GFR (MDRD) Non-Af 11 L BUN/Creatinine Ratio 10.6 Glucose 139 H Calcium 6.8 L Phosphorus 8.6 H Magnesium 2.1 Total Bilirubin 0.80 AST 308 H ALT 196 H Alkaline Phosphatase 38 L Total Creatine Kinase Total Protein 5.6 L Albumin 3.3 Globulin 2.3 Albumin/Globulin Ratio 1.4 Triglycerides Crossmatch 12/08/18 12/08/18 05:35 05:35 WBC 15.4 H RBC 2.22 L Hgb 7.0 L Hct 22.0 L MCV 99.1 H MCH 31.5 MCHC 31.8 L RDW 19.4 H RDW Differential 65.3 H Plt Count 90 L MPV 10.2 Immature Gran % (Auto) 0.300 Neut % (Auto) 91.2 H Lymph % (Auto) 2.0 L [place] % (Auto) 6.5 Eos % (Auto) 0.0 Baso % (Auto) 0.0 Absolute Neuts (auto) 14.1 H Absolute Lymphs (auto) 0.31 L Total Counted Pending Differential Comment Diff Path Review Hypochromasia Anisocytosis Microcytosis Sodium 133 L Potassium 5.2 H Chloride 94 L Carbon Dioxide 22.0 Anion Gap 17 H BUN 79 H Creatinine 6.62 H Estim Creat Clear Calc 10.48 Est GFR (MDRD) Af Amer 11 L Est GFR (MDRD) Non-Af 9 L BUN/Creatinine Ratio 11.9 Glucose 128 H Calcium 7.8 L Phosphorus Magnesium Total Bilirubin AST ALT Alkaline Phosphatase Total Creatine Kinase Total Protein Albumin Globulin Albumin/Globulin Ratio Triglycerides Crossmatch Clinical Impression(s) from Imaging Studies KUB X-Ray 12/07/18 06:27 IMPRESSION: 1. The NG tube tip lies at the GE junction and should be advanced. 2. No bowel obstruction. Chronic changes, as above. ADDENDUM: Repeat supine abdomen 12/07/2018 Repeat supine view of the abdomen was obtained following advancement of the NG tube placing the tip within the stomach lumen. Abdominal findings are otherwise unchanged. Extensive atherosclerotic calcifications. No bowel obstruction. ADDENDUM IMPRESSION: Follow-up exam shows satisfactory position of the NG tube tip within the stomach. at 0714 Reported and signed by: Asif Gannon MD Electronically Signed: Asif Gannon, at 7:13 EST Tel , Service support , KUB X-Ray 12/07/18 06:47 IMPRESSION: The tip of the orogastric tube is in the body of the stomach. Electronically Signed: Deven Hensley MD at 9:08 EST , Service support , Medical Necessity - Tobacco Use Smoking Status: Current every day smoker Assessment/Plan All Active Problems (Last Reviewed 11/26/18 @ 18:35 by Chris Stark DO) Acute respiratory insufficiency (Acute) (HFpEF) heart failure with preserved ejection fraction (Acute) Hyperkalemia (Acute) Colonic ischemia (Acute) HCAP (healthcare-associated pneumonia) (Acute) Abnormal cardiac enzyme level (Acute) DAI (acute kidney injury) (Resolved) Hypertensive emergency (Resolved) Problem with dialysis access (Resolved) S/P dialysis catheter insertion (Resolved 05/22/18) History of thoracentesis (Resolved 05/22/18) Acute renal failure superimposed on chronic kidney disease (Resolved) Acute respiratory failure with hypoxia (Acute) Leukocytosis (Resolved) RECOMMENDATIONS: 1. Probable hemodialysis today 2. Reinitiate baseline blood pressure medications 3. Increase activity as tolerated 4. Increased pain control IMPRESSIONS: 1. Septic shock/relative adrenal insufficiency secondary to ischemic colitis Patient has been doing well from a blood pressure standpoint. Patient now currently hypertensive. Likely okay to discontinue stress dose steroids and reinitiate baseline 10 mg of prednisone. Patient remains on IV antibiotics. This will likely be continued for 5-7 days. Clinical suspicion for translocation through ischemic bowel. 2. Acute respiratory failure secondary to ischemic colitis/presumed COPD Patient successfully extubated. Patient on his baseline nasal cannula oxygen. Okay to continue with bronchodilators. Continue to follow closely. Encourage incentive spirometer and activity as tolerated. 3. Embolic ischemic colitis status post resection postop day #2 Surgery is currently following. Patient appears to be significantly overloaded at this time. Will need to follow closely. Patient's ostomy appears to be functioning well at this point. Surgery following. 4. Chronic diastolic congestive heart failure Patient with multiple admissions in the past secondary to congestive heart failure complicated by end-stage renal disease. Home medical therapy will be held for now given acute condition. Patient will need volume removal with hemodialysis today. 5. Peripheral artery disease/hypertension/hyperlipidemia/end-stage renal disease/anemia of chronic disease Complicates care, management, recovery and prognosis. Renal has been consulted for hemodialysis. Blood pressure medication should be held secondary to acute condition. 6. Anemia Unclear etiology at this time. Patient may have had an element of hemoconcentration on presentation, but does not appear to be acutely losing blood at this time. Patient did receive transfusions yesterday. Code Visit Inpatient E&M: 21532 Subs Hosp L3
--- NOTE | 2018-12-08 06:57 | PN_ITS ---
Subjective: Patient did well overnight. Patient was successfully extubated yesterday and has been on his 2 L nasal cannula. Patient does report significant worsening in abdominal pain compared to yesterday that he attributes to cough. Patient has been working with incentive spirometer. Fever curve is much improved. Patient's blood pressures have trended up. No active blood loss has been reported by patient or nursing. General: Alert, Oriented x3, Cooperative, - - Significant discomfort, especially with coughing. Mild conversational dyspnea. Appears older than stated age. HEENT: Atraumatic, PERRLA, EOMI, - - Slight scleral injection without icterus Oral: Moist Mucosa, No Gingival or Mucosal Lesions/ Ulcerations Neck: Supple, No Nodes, Trachea Midline, JVD, Right Lungs: No rhonchi, No rales, Diminished, Wheezes, - - Symmetric expansion. Cardiovascular: Regular rate, Regular Rhythm, Normal S1, Normal S2, No murmurs, No rub noted, No Gallop Abdomen: Bowel Sounds Present, Soft, Non Tender, Non-Distended Extremities: No cyanosis, Clubbing, Edema Skin: - - No significant change compared to previous Musculoskeletal: No Tenderness to Palpation of Joints or Extremities, No Muscle Wasting Lymphatic: No Cervical, Supraclavicular, or Inguinal Adenopathy Neurological: Cranial nerves II-XII grossly intact, Neuro grossly intact, Motor Exam 5/5 strength throughout Psych/Mental Status: Alert and oriented to time, place, person, mood and affect Vital Signs Temp Pulse Resp BP Pulse Ox 36.9 C 85 15 174/61 H 96 12/08/18 05:00 12/08/18 06:00 12/08/18 06:00 12/08/18 06:00 12/08/18 06:00 Oxygen Flow Rate (L/min) 2 Oxygen Delivery Method Nasal Cannula Weight: 77.6 kg Body Mass Index (BMI) 26.4 Finger Stick Blood Glucose 200 Intake and Output for Last 24 Hours 12/06/18 12/07/18 12/08/18 23:59 23:59 23:59 Intake Total 1127 / 1127 2066.9 / 2066.9 464 / 464 Output Total 0 / 0 125 / 125 0 / 0 Balance 1127 / 1127 1941.9 / 1941.9 464 / 464 Labs (Last 48 Hours) 12/06/18 12/06/1812/07/19 01:26 05:08 04:15 WBC 15.8 H RBC 1.73 L Hgb 5.5 L* Hct 18.6 L MCV 107.5 H MCH 31.8 MCHC 29.6 L RDW 17.6 H RDW Differential 64.6 H Plt Count 124 L MPV 10.6 Immature Gran % (Auto) 0.300 Neut % (Auto) 91.3 H Lymph % (Auto) 2.9 L [place] % (Auto) 5.4 Eos % (Auto) 0.0 Baso % (Auto) 0.1 Absolute Neuts (auto) 14.4 H Absolute Lymphs (auto) 0.45 L Total Counted Not Reportable Differential Comment SCAN Diff Path Review Reviewed Hypochromasia 2+ Anisocytosis 2+ Microcytosis 1+ Sodium Potassium Chloride Carbon Dioxide Anion Gap BUN Creatinine Estim Creat Clear Calc Est GFR (MDRD) Af Amer Est GFR (MDRD) Non-Af BUN/Creatinine Ratio Glucose Calcium Phosphorus Magnesium Total Bilirubin AST ALT Alkaline Phosphatase Total Creatine Kinase 92 Total Protein Albumin Globulin Albumin/Globulin Ratio Triglycerides 184 Crossmatch See Detail 12/07/18 12/07/18 12/07/18 04:15 05:40 14:15 WBC RBC Hgb 5.3 L* 7.2 L Hct 17.3 L 22.0 L MCV MCH MCHC RDW RDW Differential Plt Count MPV Immature Gran % (Auto) Neut % (Auto) Lymph % (Auto) [place] % (Auto) Eos % (Auto) Baso % (Auto) Absolute Neuts (auto) Absolute Lymphs (auto) Total Counted Differential Comment Diff Path Review Hypochromasia Anisocytosis Microcytosis Sodium 135 L Potassium 4.7 Chloride 95 L Carbon Dioxide 24.0 Anion Gap 16 H BUN 58 H Creatinine 5.46 H Estim Creat Clear Calc 12.70 Est GFR (MDRD) Af Amer 14 L Est GFR (MDRD) Non-Af 11 L BUN/Creatinine Ratio 10.6 Glucose 139 H Calcium 6.8 L Phosphorus 8.6 H Magnesium 2.1 Total Bilirubin 0.80 AST 308 H ALT 196 H Alkaline Phosphatase 38 L Total Creatine Kinase Total Protein 5.6 L Albumin 3.3 Globulin 2.3 Albumin/Globulin Ratio 1.4 Triglycerides Crossmatch 12/08/18 12/08/18 05:35 05:35 WBC 15.4 H RBC 2.22 L Hgb 7.0 L Hct 22.0 L MCV 99.1 H MCH 31.5 MCHC 31.8 L RDW 19.4 H RDW Differential 65.3 H Plt Count 90 L MPV 10.2 Immature Gran % (Auto) 0.300 Neut % (Auto) 91.2 H Lymph % (Auto) 2.0 L [place] % (Auto) 6.5 Eos % (Auto) 0.0 Baso % (Auto) 0.0 Absolute Neuts (auto) 14.1 H Absolute Lymphs (auto) 0.31 L Total Counted Pending Differential Comment Diff Path Review Hypochromasia Anisocytosis Microcytosis Sodium 133 L Potassium 5.2 H Chloride 94 L Carbon Dioxide 22.0 Anion Gap 17 H BUN 79 H Creatinine 6.62 H Estim Creat Clear Calc 10.48 Est GFR (MDRD) Af Amer 11 L Est GFR (MDRD) Non-Af 9 L BUN/Creatinine Ratio 11.9 Glucose 128 H Calcium 7.8 L Phosphorus Magnesium Total Bilirubin AST ALT Alkaline Phosphatase Total Creatine Kinase Total Protein Albumin Globulin Albumin/Globulin Ratio Triglycerides Crossmatch Clinical Impression(s) from Imaging Studies KUB X-Ray 12/07/18 06:27 IMPRESSION: 1. The NG tube tip lies at the GE junction and should be advanced. 2. No bowel obstruction. Chronic changes, as above. ADDENDUM: Repeat supine abdomen 12/07/2018 Repeat supine view of the abdomen was obtained following advancement of the NG tube placing the tip within the stomach lumen. Abdominal findings are otherwise unchanged. Extensive atherosclerotic calcifications. No bowel obstruction. ADDENDUM IMPRESSION: Follow-up exam shows satisfactory position of the NG tube tip within the stomach. at 0714 Reported and signed by: Asif Gannon MD Electronically Signed: Asif Gannon, at 7:13 EST Tel , Service support , KUB X-Ray 12/07/18 06:47 IMPRESSION: The tip of the orogastric tube is in the body of the stomach. Electronically Signed: Deven Hensley MD at 9:08 EST , Service support , Medical Necessity - Tobacco Use Smoking Status: Current every day smoker Assessment/Plan All Active Problems (Last Reviewed 11/26/18 @ 18:35 by Chris Stark DO) Acute respiratory insufficiency (Acute) (HFpEF) heart failure with preserved ejection fraction (Acute) Hyperkalemia (Acute) Colonic ischemia (Acute) HCAP (healthcare-associated pneumonia) (Acute) Abnormal cardiac enzyme level (Acute) DAI (acute kidney injury) (Resolved) Hypertensive emergency (Resolved) Problem with dialysis access (Resolved) S/P dialysis catheter insertion (Resolved 05/22/18) History of thoracentesis (Resolved 05/22/18) Acute renal failure superimposed on chronic kidney disease (Resolved) Acute respiratory failure with hypoxia (Acute) Leukocytosis (Resolved) RECOMMENDATIONS: 1. Probable hemodialysis today 2. Reinitiate baseline blood pressure medications 3. Increase activity as tolerated 4. Increased pain control IMPRESSIONS: 1. Septic shock/relative adrenal insufficiency secondary to ischemic colitis Patient has been doing well from a blood pressure standpoint. Patient now currently hypertensive. Likely okay to discontinue stress dose steroids and reinitiate baseline 10 mg of prednisone. Patient remains on IV antibiotics. This will likely be continued for 5-7 days. Clinical suspicion for translocation through ischemic bowel. 2. Acute respiratory failure secondary to ischemic colitis/presumed COPD Patient successfully extubated. Patient on his baseline nasal cannula oxygen. Okay to continue with bronchodilators. Continue to follow closely. Encourage incentive spirometer and activity as tolerated. 3. Embolic ischemic colitis status post resection postop day #2 Surgery is currently following. Patient appears to be significantly overloaded at this time. Will need to follow closely. Patient's ostomy appears to be functioning well at this point. Surgery following. 4. Chronic diastolic congestive heart failure Patient with multiple admissions in the past secondary to congestive heart failure complicated by end-stage renal disease. Home medical therapy will be held for now given acute condition. Patient will need volume removal with hemodialysis today. 5. Peripheral artery disease/hypertension/hyperlipidemia/end-stage renal disease/anemia of chronic disease Complicates care, management, recovery and prognosis. Renal has been consulted for hemodialysis. Blood pressure medication should be held secondary to acute condition. 6. Anemia Unclear etiology at this time. Patient may have had an element of hemoc oncentration on presentation, but does not appear to be acutely losing blood at this time. Patient did receive transfusions yesterday. Code Visit Inpatient E&M: 44107 Subs Hosp L3
[2018-12-08 07:29] LABS: Anisocytosis 1+; Differential Comment SCAN; Hypochromasia 1+; Microcytosis 1+; Polychromasia 1+
--- NOTE | 2018-12-08 08:05 | PCM.PN.SRG ---
Patient Problems: Active and Suspected Problems (Last Reviewed 11/26/18 @ 18:35 by Chris Stark DO) Colonic ischemia (Acute) Subjective: Patient is complaining of some shortness of breath - Physical Exam General: Alert, Oriented x3 Cardiovascular: Regular rate, Regular Rhythm Abdomen: Soft, Tender Vital Signs Temp Pulse Resp BP Pulse Ox 98.4 F 83 18 176/54 H 97 12/08/18 05:00 12/08/18 07:35 12/08/18 07:00 12/08/18 07:00 12/08/18 07:00 Oxygen Flow Rate (L/min) 2 Oxygen Delivery Method Nasal Cannula Weight: 171 lb 1.259 oz Body Mass Index (BMI) 26.4 Finger Stick Blood Glucose 200 Intake and Output for Last 24 Hours 12/06/18 12/07/18 12/08/18 23:59 23:59 23:59 Intake Total 1127 / 1127 2066.9 / 2066.9 704 / 704 Output Total 0 / 0 125 / 125 0 / 0 Balance 1127 / 1127 1941.9 / 1941.9 704 / 704 Laboratory Tests Past 24 Hrs 12/06/18 12/07/18 12/07/18 05:08 04:15 05:40 WBC RBC Hgb 5.3 L* Hct MCV MCH MCHC RDW RDW Differential Plt Count MPV Immature Gran % (Auto) Neut % (Auto) Lymph % (Auto) [place] % (Auto) Eos % (Auto) Baso % (Auto) Absolute Neuts (auto) Absolute Lymphs (auto) Total Counted Differential Comment Diff Path Review Reviewed Polychromasia Hypochromasia Anisocytosis Microcytosis Sodium Potassium Chloride Carbon Dioxide Anion Gap BUN Creatinine Estim Creat Clear Calc Est GFR (MDRD) Af Amer Est GFR (MDRD) Non-Af BUN/Creatinine Ratio Glucose Calcium Crossmatch See Detail 12/07/18 12/08/18 12/08/18 14:15 05:35 05:35 WBC 15.4 H RBC 2.22 L Hgb 7.2 L 7.0 L Hct 22.0 L 22.0 L MCV 99.1 H MCH 31.5 MCHC 31.8 L RDW 19.4 H RDW Differential 65.3 H Plt Count 90 L MPV 10.2 Immature Gran % (Auto) 0.300 Neut % (Auto) 91.2 H Lymph % (Auto) 2.0 L [place] % (Auto) 6.5 Eos % (Auto) 0.0 Baso % (Auto) 0.0 Absolute Neuts (auto) 14.1 H Absolute Lymphs (auto) 0.31 L Total Counted Not Reportable Differential Comment SCAN Diff Path Review Polychromasia 1+ Hypochromasia 1+ Anisocytosis 1+ Microcytosis 1+ Sodium 133 L Potassium 5.2 H Chloride 94 L Carbon Dioxide 22.0 Anion Gap 17 H BUN 79 H Creatinine 6.62 H Estim Creat Clear Calc 10.48 Est GFR (MDRD) Af Amer 11 L Est GFR (MDRD) Non-Af 9 L BUN/Creatinine Ratio 11.9 Glucose 128 H Calcium 7.8 L Crossmatch Medical Necessity - Tobacco Use Smoking Status: Current every day smoker Assessment/Plan All Active Problems (Last Reviewed 11/26/18 @ 18:35 by Chris Stark DO) Acute respiratory insufficiency (Acute) (HFpEF) heart failure with preserved ejection fraction (Acute) Hyperkalemia (Acute) Colonic ischemia (Acute) HCAP (healthcare-associated pneumonia) (Acute) Abnormal cardiac enzyme level (Acute) DAI (acute kidney injury) (Resolved) Hypertensive emergency (Resolved) Problem with dialysis access (Resolved) S/P dialysis catheter insertion (Resolved 05/22/18) History of thoracentesis (Resolved 05/22/18) Acute renal failure superimposed on chronic kidney disease (Resolved) Acute respiratory failure with hypoxia (Acute) Leukocytosis (Resolved) 68-year-old male status post right and transverse colectomy with ileostomy 1. Patient is hypertensive this morning and feeling short of breath. The patient is going to have dialysis with likely fluid removal. 2. Patient tolerated clear liquids yesterday with stoma output. His abdomen is slightly distended which may be ascites. His hemoglobin is stable. If he does well with dialysis and his bloating improved I would advance him to full liquids today. 3. If dialysis goes well the patient will possibly be moved to the floor. 4. Continue antibiotics and incisional kirstin until WBC has normalized. Armen Henderson MD Pager: [facility] [address] [place] [address], [address] [place] [address] Office:
--- NOTE | 2018-12-08 08:09 | PN.SURG_ITS ---
Patient Problems: Active and Suspected Problems (Last Reviewed 11/26/18 @ 18:35 by Chris Stark DO) Colonic ischemia (Acute) Subjective: Patient is complaining of some shortness of breath - Physical Exam General: Alert, Oriented x3 Cardiovascular: Regular rate, Regular Rhythm Abdomen: Soft, Tender Vital Signs Temp Pulse Resp BP Pulse Ox 98.4 F 83 18 176/54 H 97 12/08/18 05:00 12/08/18 07:35 12/08/18 07:00 12/08/18 07:00 12/08/18 07:00 Oxygen Flow Rate (L/min) 2 Oxygen Delivery Method Nasal Cannula Weight: 171 lb 1.259 oz Body Mass Index (BMI) 26.4 Finger Stick Blood Glucose 200 Intake and Output for Last 24 Hours 12/06/18 12/07/18 12/08/18 23:59 23:59 23:59 Intake Total 1127 / 1127 2066.9 / 2066.9 704 / 704 Output Total 0 / 0 125 / 125 0 / 0 Balance 1127 / 1127 1941.9 / 1941.9 704 / 704 Laboratory Tests Past 24 Hrs 12/06/18 12/07/18 12/07/18 05:08 04:15 05:40 WBC RBC Hgb 5.3 L* Hct MCV MCH MCHC RDW RDW Differential Plt Count MPV Immature Gran % (Auto) Neut % (Auto) Lymph % (Auto) [place] % (Auto) Eos % (Auto) Baso % (Auto) Absolute Neuts (auto) Absolute Lymphs (auto) Total Counted Differential Comment Diff Path Review Reviewed Polychromasia Hypochromasia Anisocytosis Microcytosis Sodium Potassium Chloride Carbon Dioxide Anion Gap BUN Creatinine Estim Creat Clear Calc Est GFR (MDRD) Af Amer Est GFR (MDRD) Non-Af BUN/Creatinine Ratio Glucose Calcium Crossmatch See Detail 12/07/18 12/08/18 12/08/18 14:15 05:35 05:35 WBC 15.4 H RBC 2.22 L Hgb 7.2 L 7.0 L Hct 22.0 L 22.0 L MCV 99.1 H MCH 31.5 MCHC 31.8 L RDW 19.4 H RDW Differential 65.3 H Plt Count 90 L MPV 10.2 Immature Gran % (Auto) 0.300 Neut % (Auto) 91.2 H Lymph % (Auto) 2.0 L [place] % (Auto) 6.5 Eos % (Auto) 0.0 Baso % (Auto) 0.0 Absolute Neuts (auto) 14.1 H Absolute Lymphs (auto) 0.31 L Total Counted Not Reportable Differential Comment SCAN Diff Path Review Polychromasia 1+ Hypochromasia 1+ Anisocytosis 1+ Microcytosis 1+ Sodium 133 L Potassium 5.2 H Chloride 94 L Carbon Dioxide 22.0 Anion Gap 17 H BUN 79 H Creatinine 6.62 H Estim Creat Clear Calc 10.48 Est GFR (MDRD) Af Amer 11 L Est GFR (MDRD) Non-Af 9 L BUN/Creatinine Ratio 11.9 Glucose 128 H Calcium 7.8 L Crossmatch Medical Necessity - Tobacco Use Smoking Status: Current every day smoker Assessment/Plan All Active Problems (Last Reviewed 11/26/18 @ 18:35 by Chris Stark DO) Acute respiratory insufficiency (Acute) (HFpEF) heart failure with preserved ejection fraction (Acute) Hyperkalemia (Acute) Colonic ischemia (Acute) HCAP (healthcare-associated pneumonia) (Acute) Abnormal cardiac enzyme level (Acute) DAI (acute kidney injury) (Resolved) Hypertensive emergency (Resolved) Problem with dialysis access (Resolved) S/P dialysis catheter insertion (Resolved 05/22/18) History of thoracentesis (Resolved 05/22/18) Acute renal failure superimposed on chronic kidney disease (Resolved) Acute respiratory failure with hypoxia (Acute) Leukocytosis (Resolved) 68-year-old male status post right and transverse colectomy with ileostomy 1. Patient is hypertensive this morning and feeling short of breath. The patient is going to have dialysis with likely fluid removal. 2. Patient tolerated clear liquids yesterday with stoma output. His abdomen is slightly distended which may be ascites. His hemoglobin is stable. If he does well with dialysis and his bloating improved I would advance him to full liquids today. 3. If dialysis goes well the patient will possibly be moved to the floor. 4. Continue antibiotics and incisional kirstin until WBC has normalized. Armen Henderson MD Pager: [facility] [address] [place] [address], [address] [place] [address] Office:
--- NOTE | 2018-12-08 11:30 | PCM.CONS.GEN ---
Problem List (1) Hyperkalemia Status: Acute (2) Colonic ischemia Status: Acute (3) ESRD (end stage renal disease) Status: Chronic (4) Stented coronary artery Status: Chronic Comment: 2003, JASON to circumflex ; 10/13/2009 tsfer from [facility] to [facility], total of 5 bare metal stents to RCA per Dr. Barrientos @ [facility]: 3.5 X 18 [employer] Processor, followed distally by 3.0 X12 Parts Processor to distal RCA;3.5 X 15 Parts Processor, followed proximally by 4.0 X 18 Parts Processor to Mid RCA; 4.0 X 18 [employer] Processor to Proximal RCA (5) S/P CABG x 3 Status: Chronic Comment: [facility] per Dr. Osito Hernandez: NICHOLAS to LAD, reverse SVG to OMbranch of CX, reverse SVG to PDA of RCA. PDA endarterectomy. (6) Diastolic CHF Status: Chronic Qualifiers: Heart failure chronicity: acute on chronic Qualified Code(s): I50.33 - Acute on chronic diastolic (congestive) heart failure (7) HLD (hyperlipidemia) Status: Chronic Qualifiers: (8) HTN (hypertension) Status: Chronic Qualifiers: (9) COPD (chronic obstructive pulmonary disease) Status: Chronic Qualifiers: (10) Anemia Status: Chronic (11) BPH (benign prostatic hyperplasia) Status: Chronic Qualifiers: Reason for Consult Date of Consultation: 12/08/18 Reason for Consultation: Postoperative medical management. History of Present Illness: The patient is a 68 year old M with multiple medical problems as mentioned above presented to the emergency room on December 06, 2018 for abdominal pain, found to have ischemic colitis of the right and transverse colon, underwent exploratory laparotomy with resection of the right and transverse colon with creation of end ileostomy and his postoperative course complicated by acute respiratory failure and probable septic shock secondary to ischemic colitis and I am seeing this patient in consultation for postoperative medical management. At this time, patient is alert, awake and oriented x3. He was extubated yesterday. He complains of abdominal pain and tenderness. Denied nausea or vomiting. He complains of cough with minimal sputum, no worsening shortness of breath. He denied chest pain, palpitation, dizziness or lightheadedness. Currently, he is on hemodialysis. He is afebrile, heart rate stable, blood pressure is elevated, pulse ox is 98% on 2 L. He had a history of end-stage renal disease and he is on hemodialysis on Mondays, Wednesdays and Fridays, currently on hemodialysis today. He has a history of CAD status post CABG and he has been on aspirin, Plavix, metoprolol and hydralazine. He had a history of COPD and chronic respiratory failure and he has been on oxygen at home at 2 L. Today's routine blood work revealed leukocytosis, hemoglobin of 7 g/dL, sodium of 133, potassium 5.2, BUN of 79 and creatinine of 6.62. Past Medical History Past Medical History (Chronic Problems): Chronic Problems (Last Updated 12/08/18 @ 11:30 by Amadou Shane MD) ESRD (end stage renal disease) (Chronic) History of non-ST elevation myocardial infarction (NSTEMI) (Chronic 01/21/11) History of right and left heart catheterization (Chronic 05/24/18) Patent NICHOLAS to LAD, SVG to 1st OM and SVG to RCA. Elevated right heart pressures, significant Diastolic dysfunction per cath done @ [facility], Dr. Barrientos Stented coronary artery (Chronic) 2003, JASON to circumflex ; 10/13/2009 tsfer from [facility] to [facility], total of 5 bare metal stents to RCA per Dr. Barrientos @ [facility]: 3.5 X 18 [employer] Processor, followed distally by 3.0 X12 Parts Processor to distal RCA;3.5 X 15 Parts Processor, followed proximally by 4.0 X 18 Parts Processor to Mid RCA; 4.0 X 18 Parts Processor to Proximal RCA S/P CABG x 3 (Chronic 01/26/11) [facility] per Dr. Osito Hernandez: NICHOLAS to LAD, reverse SVG to OMbranch of CX, reverse SVG to PDA of RCA. PDA endarterectomy. Status post peripheral artery angioplasty with insertion of stent (Chronic ~2010) Right common iliac, [facility] Atherosclerotic heart disease of [place] coronary artery without angina pectoris (Chronic) 2003, JASON to circumflex ; 10/10/2009 tsfer from [facility] to [facility], total of 5 bare metal stents to RCA; CABG X 3 vessels @ [facility] 01/31/2011 (critical left main and restenosis of RCA stents) Diastolic CHF (Chronic) HLD (hyperlipidemia) (Chronic) HTN (hypertension) (Chronic) PAD (peripheral artery disease) (Chronic) COPD (chronic obstructive pulmonary disease) (Chronic) Tobacco dependence (Chronic) Anemia (Chronic) BPH (benign prostatic hyperplasia) (Chronic) Medical History: Medical History (Last Updated 12/08/18 @ 11:30 by Amadou Shane MD) History of non-ST elevation myocardial infarction (NSTEMI) (Chronic) Onset Date: 01/21/11 I25.2 Atherosclerotic heart disease of [place] coronary artery without angina pectoris (Chronic) I25.10 2003, JASON to circumflex ; 10/10/2009 tsfer from [facility] to [facility], total of 5 bare metal stents to RCA; CABG X 3 vessels @ [facility] 01/31/2011 (critical left main and restenosis of RCA stents) Diastolic CHF (Chronic) I50.30 HLD (hyperlipidemia) (Chronic) E78.5 HTN (hypertension) (Chronic) I10 PAD (peripheral artery disease) (Chronic) I73.9 COPD (chronic obstructive pulmonary disease) (Chronic) J44.9 Tobacco dependence (Chronic) F17.200 Anemia (Chronic) D64.9 BPH (benign prostatic hyperplasia) (Chronic) N40.0 Allergies irbesartan [From Avapro] Allergy (Severe, Verified 12/06/18 01:12) Blisters zolpidem [From Ambien] Adverse Reaction (Severe, Verified 12/06/18 01:12) made me go crazy, memory loss Home Medications: Ambulatory Orders Medication Instructions Recorded Albuterol Sulfate 2.5 mg IH Q4H PRN 11/13/18 Alprazolam [Xanax] 0.5 mg PO TID PRN 11/13/18 Aspirin E.C. [Ecotrin] 81 mg PO DAILY@0800 11/13/18 Clopidogrel Bisulfate [Plavix] 75 mg PO DAILY 11/13/18 Ferric Citrate [Auryxia] 210 mg PO BID 11/13/18 Lactulose 30 gm PO QODAY 11/13/18 Prednisone 10 mg PO DAILY 11/13/18 Ropinirole HCl [Requip] 1 mg PO QHS 11/13/18 Rosuvastatin Calcium [Crestor] 40 mg PO QHS 11/13/18 Tamsulosin HCl [Flomax] 0.8 mg PO DAILY 11/13/18 hydrALAZINE [Apresoline] 25 mg PO BID 11/13/18 Metoprolol(XL)Succ [Toprol Xl 100 mg PO BID 12/06/18 (Beta Kadi)] Surgical History: Surgical History (Last Updated 12/08/18 @ 11:30 by Amadou Shane MD) History of right and left heart catheterization (Chronic) Onset Date: 05/24/18 Z98.890 Patent NICHOALS to LAD, SVG to 1st OM and SVG to RCA. Elevated right heart pressures, significant Diastolic dysfunction per cath done @ [facility], Dr. Barrientos Stented coronary artery (Chronic) Z95.5 2003, JASON to circumflex ; 10/13/2009 tsfer from [facility] to [facility], total of 5 bare metal stents to RCA per Dr. Barrientos @ [facility]: 3.5 X 18 [employer] Processor, followed distally by 3.0 X12 Parts Processor to distal RCA;3.5 X 15 Parts Processor, followed proximally by 4.0 X 18 Parts Processor to Mid RCA; 4.0 X 18 Parts Processor to Proximal RCA S/P CABG x 3 (Chronic) Onset Date: 01/26/11 Z95.1 [facility] per Dr. Osito Hernandez: NICHOLAS to LAD, reverse SVG to OMbranch of CX, reverse SVG to PDA of RCA. PDA endarterectomy. history of surgically created arteriovenous fistula s/p fistulogram Onset Date: ~09/28/18 Surgical History: coronary bypass surgery, tonsillectomy Psychiatric History: No pertinent psych hx Smoking Status: Current every day smoker Tobacco Use: Cigarettes Alcohol: None Drugs: None - *Family History Maternal Family History: Family History (Last Reviewed 11/13/18 @ 12:56 by Manoj Christensen MD) Father CAD (coronary artery disease) Hypertension Kidney disease CVA (cerebral vascular accident) Other Cancer History Items: Heart Disease Paternal Family History: Family History (Last Reviewed 11/13/18 @ 12:56 by Manoj Christensen MD) Father CAD (coronary artery disease) Hypertension Kidney disease CVA (cerebral vascular accident) Other Cancer History Items: Heart Disease Review of Systems Constitutional: Denies: Anorexia, Chills, Fever, Weakness Eyes: Denies: Blurred vision, Double vision, Drainage, Redness HEENT: Denies: Difficulty Hearing, Ear Pain, Eye Pain, Nasal Congestion, Sore Throat Cardiovascular: Denies: Chest Pain, Chest Pressure, Chest Tightness, Heaviness, Light Headedness, Palpitations, Syncope Respiratory: Reports: Cough, Sputum production. Denies: Pleuritic Pain, Shortness of Breath, Wheezing Gastrointestinal: Reports: Abdominal Pain. Denies: Constipation, Diarrhea, Hematochezia, Nausea, Melena, Vomiting Genitourinary: Denies: Dysuria, Frequency, Hematuria Musculoskeletal: Denies: Arm Pain, Back Pain, Foot Pain Skin: Denies: Dryness, Rash Neurological: Denies: Balance problems, Blurred vision, Double vision, Slurred speech, Confusion, Headaches, Incoordination, Numbness Psychiatric: Denies: Anxiety, Depression Endocrine: Denies: Change in Body Habitus, Polydipsia Patient Problems: Active and Suspected Problems (Last Updated 12/08/18 @ 11:30 by Amadou Shane MD) Colonic ischemia (Acute) - Physical Exam General: Alert, Oriented x3, Cooperative, No apparent distress HEENT: Atraumatic, PERRLA, EOMI, Normocephalic Oral: Moist Mucosa, No Gingival or Mucosal Lesions/ Ulcerations Neck: Supple, No JVD, Negative Carotid Bruits, Trachea Midline, Thyroid Normal Size and Texture Lungs: No wheeze, No rales, Diminished, Rhonchi, - - Diminished breath sounds bilateral, bilateral rhonchi. Cardiovascular: Regular rate, Regular Rhythm, Normal S1, Normal S2, No murmurs Abdomen: Soft, No Hepato-splenomegaly, Hypoactive Bowel Sounds, Distended, Tender - No guarding or rigidity. Extremities: No clubbing, No cyanosis, Edema - + Edema. Skin: No rashes, No breakdown Lymphatic: No Cervical, Supraclavicular, or Inguinal Adenopathy Neurological: Cranial nerves II-XII grossly intact, Motor Exam 5/5 strength throughout Psych/Mental Status: Normal Affect, Appropriate, Alert and oriented to time, place, person, mood and affect Vital Signs Temp Pulse Resp BP Pulse Ox 98.4 F 88 15 151/49 H 98 12/08/18 10:00 12/08/18 11:00 12/08/18 11:00 12/08/18 11:00 12/08/18 11:00 Oxygen Flow Rate (L/min) 2 Oxygen Delivery Method Nasal Cannula Weight: 171 lb 1.259 oz Body Mass Index (BMI) 26.4 Finger Stick Blood Glucose 200 Intake and Output for Last 24 Hours 12/06/18 12/07/18 12/08/18 23:59 23:59 23:59 Intake Total 1127 / 1127 2066.9 / 2066.9 704 / 704 Output Total 0 / 0 125 / 125 0 / 0 Balance 1127 / 1127 1941.9 / 1941.9 704 / 704 Laboratory Tests Past 24 Hrs 12/07/18 12/07/18 12/07/18 04:15 05:40 14:15 WBC RBC Hgb 5.3 L* 7.2 L Hct 22.0 L MCV MCH MCHC RDW RDW Differential Plt Count MPV Immature Gran % (Auto) Neut % (Auto) Lymph % (Auto) Evangeline % (Auto) Eos % (Auto) Baso % (Auto) Absolute Neuts (auto) Absolute Lymphs (auto) Total Counted Differential Comment Diff Path Review Reviewed Polychromasia Hypochromasia Anisocytosis Microcytosis Sodium Potassium Chloride Carbon Dioxide Anion Gap BUN Creatinine Estim Creat Clear Calc Est GFR (MDRD) Af Amer Est GFR (MDRD) Non-Af BUN/Creatinine Ratio Glucose Calcium 12/08/18 12/08/18 05:35 05:35 WBC 15.4 H RBC 2.22 L Hgb 7.0 L Hct 22.0 L MCV 99.1 H MCH 31.5 MCHC 31.8 L RDW 19.4 H RDW Differential 65.3 H Plt Count 90 L MPV 10.2 Immature Gran % (Auto) 0.300 Neut % (Auto) 91.2 H Lymph % (Auto) 2.0 L Evangeline % (Auto) 6.5 Eos % (Auto) 0.0 Baso % (Auto) 0.0 Absolute Neuts (auto) 14.1 H Absolute Lymphs (auto) 0.31 L Total Counted Not Reportable Differential Comment SCAN Diff Path Review Polychromasia 1+ Hypochromasia 1+ Anisocytosis 1+ Microcytosis 1+ Sodium 133 L Potassium 5.2 H Chloride 94 L Carbon Dioxide 22.0 Anion Gap 17 H BUN 79 H Creatinine 6.62 H Estim Creat Clear Calc 10.48 Est GFR (MDRD) Af Amer 11 L Est GFR (MDRD) Non-Af 9 L BUN/Creatinine Ratio 11.9 Glucose 128 H Calcium 7.8 L Clinical Impression(s) from Imaging Studies Chest X-Ray 12/06/18 01:23 IMPRESSION: 1. Worsening congestive heart failure. 2. Stable small left pleural effusion. Electronically Signed: Robert García MD at 2:31 EST Tel , Service support , Abdomen/Pelvis CT 12/06/18 01:36 IMPRESSION: 1. Pneumatosis of the cecum and descending colon with extensive portal venous gas throughout the mesenteric venous channels and into the periphery of the liver parenchyma. 2. Bibasilar airspace infiltration, either representing confluent dependent edema or bibasilar pneumonia. 3. Trace bilateral pleural effusions. 4. Left renal atrophy 5. Simple appearing cyst off of the lateral midpole of the left kidney. Electronically Signed: Robert García MD at 2:41 EST Tel , Service support , ADDENDUM: 12/06/18 0253 IMPRESSION: 1. Pneumatosis of the cecum and descending colon with extensive portal venous gas throughout the mesenteric venous channels and into the periphery of the liver parenchyma. 2. Bibasilar airspace infiltration, either representing confluent dependent edema or bibasilar pneumonia. 3. Trace bilateral pleural effusions. 4. Left renal atrophy 5. Simple appearing cyst off of the lateral midpole of the left kidney. N.B. : The above information has been verbally conveyed by Robert García MD to Andreia Jeffery MD, MD, on 12/06/2018 02:45:55 (ET). Electronically Signed: Robert García MD at 2:41 EST Tel , Service support , Chest X-Ray 12/06/18 08:29 IMPRESSION: The tip of the endotracheal tube is at 6.5 sinus proximal to the iliana. The tip of the nasogastric tube is in the body of the stomach just distal to the gastroesophageal junction. Left basilar atelectasis and/or infiltrate with small left effusion. Central vascular congestion. Electronically Signed: Deven Hensley MD at 9:46 EST , Service support , Chest X-Ray 12/06/18 11:12 IMPRESSION: Placement of left IJ central venous catheter as above. No pneumothorax. Remainder is essentially unchanged Electronically Signed: Salas MejiaDO gaby at 12:49 EST Tel , Service support , KUB X-Ray 12/07/18 06:27 IMPRESSION: 1. The NG tube tip lies at the GE junction and should be advanced. 2. No bowel obstruction. Chronic changes, as above. ADDENDUM: Repeat supine abdomen 12/07/2018 Repeat supine view of the abdomen was obtained following advancement of the NG tube placing the tip within the stomach lumen. Abdominal findings are otherwise unchanged. Extensive atherosclerotic calcifications. No bowel obstruction. ADDENDUM IMPRESSION: Follow-up exam shows satisfactory position of the NG tube tip within the stomach. at 0714 Reported and signed by: Asif Gannon MD Electronically Signed: Asif Gannon, at 7:13 EST Tel , Service support , KUB X-Ray 12/07/18 06:47 IMPRESSION: The tip of the orogastric tube is in the body of the stomach. 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 #1 ischemic colitis of the right and transverse colon: Status post exploratory laparotomy with resection of right and transverse colon, creation of end ileostomy. Postoperative day 2. Patient started medically liquids, still having abdominal pain and tenderness. No flatus, no bowel movement. Blood pressure is elevated, afebrile, heart rate stable, pulse ox is 98% on 2 L. General surgery on the case. Plan to continue same treatment. #2 probable septic shock: Attributed to probably ischemic colitis as well as adrenal insufficiency as patient has been on long-term steroids. He is on IV Zosyn empirically, he has been afebrile,. He is on stress dose of IV steroids. Today, he is hypertensive. Started on hydralazine and metoprolol. Plan to control blood pressure, wean off IV steroids. #3 acute on chronic hypoxic respiratory failure: Status post extubation. He is maintaining his pulse ox on 2 L which is his baseline at home. Chest x-ray done depressive the and showed no acute changes. #4 acute on chronic anemia: Likely due to blood loss during surgery and hemodilution. Hemoglobin was as low as 5.3, received 1 unit of packed RBCs and now he is getting a second. Today's hemoglobin is 7 g/dL. Plan to repeat CBC tomorrow morning. #5 mild hyperkalemia: Today's potassium is 5.2, he is on dialysis now. Plan to repeat BMP tomorrow morning. #6 CAD status post CABG: Stable, no acute issues. He is on metoprolol. Plan to resume aspirin and Plavix as well as statins later. #7 chronic diastolic CHF: Clinically stable, compensated. He is only on metoprolol and dialysis. He is not on HEATHER inhibitors because of end-stage renal disease. #8 COPD/chronic respiratory failure: He is on oxygen at 2 L. At this time, pulse ox is 98% on 2 L. He is on bronchodilators and IV antibiotics. #9 ESRD on hemodialysis: On dialysis on Mondays, Wednesdays and Fridays, nephrology consulted. #10 hypertension: Blood pressure is elevated, uncontrolled. Started back on hydralazine and metoprolol, plan to monitor and control. #11 benign prostatic hypertrophy: Continue Flomax when allowed to take p.o. #12 DVT prophylaxis: SCDs. This note was generated with [employer] software. It may contain incorrect words, spelling, and punctuation that were not noted in checking the note before signing. Code Visit Inpatient E&M: 32745 Init Hosp L3
--- NOTE | 2018-12-08 11:36 | CON.PCM_ITS ---
Problem List (1) Hyperkalemia Status: Acute (2) Colonic ischemia Status: Acute (3) ESRD (end stage renal disease) Status: Chronic (4) Stented coronary artery Status: Chronic Comment: 2003, JASON to circumflex ; 10/13/2009 tsfer from [facility] to [facility], total of 5 bare metal stents to RCA per Dr. Barrientos @ [facility]: 3.5 X 18 Janitorial Assistant, followed distally by 3.0 X12 Janitorial Assistant to distal RCA;3.5 X 15 Janitorial Assistant, followed proximally by 4.0 X 18 Janitorial Assistant to Mid RCA; 4.0 X 18 Janitorial Assistant to Proximal RCA (5) S/P CABG x 3 Status: Chronic Comment: [facility] per Dr. Osito Hernandez: NICHOLAS to LAD, reverse SVG to OMbranch of CX, reverse SVG to PDA of RCA. PDA endarterectomy. (6) Diastolic CHF Status: Chronic Qualifiers: Heart failure chronicity: acute on chronic Qualified Code(s): I50.33 - Acute on chronic diastolic (congestive) heart failure (7) HLD (hyperlipidemia) Status: Chronic Qualifiers: (8) HTN (hypertension) Status: Chronic Qualifiers: (9) COPD (chronic obstructive pulmonary disease) Status: Chronic Qualifiers: (10) Anemia Status: Chronic (11) BPH (benign prostatic hyperplasia) Status: Chronic Qualifiers: Reason for Consult Date of Consultation: 12/08/18 Reason for Consultation: Postoperative medical management. History of Present Illness: The patient is a 68 year old M with multiple medical problems as mentioned above presented to the emergency room on December 06, 2018 for abdominal pain, found to have ischemic colitis of the right and transverse colon, underwent exploratory laparotomy with resection of the right and transverse colon with creation of end ileostomy and his postoperative course complicated by acute respiratory failure and probable septic shock secondary to ischemic colitis and I am seeing this patient in consultation for postoperative medical management. At this time, patient is alert, awake and oriented x3. He was extubated yesterday. He complains of abdominal pain and tenderness. Denied nausea or vomiting. He complains of cough with minimal sputum, no worsening shortness of breath. He denied chest pain, palpitation, dizziness or lightheadedness. Currently, he is on hemodialysis. He is afebrile, heart rate stable, blood pressure is elevated, pulse ox is 98% on 2 L. He had a history of end-stage renal disease and he is on hemodialysis on Mondays, Wednesdays and Fridays, currently on hemodialysis today. He has a history of CAD status post CABG and he has been on aspirin, Plavix, metoprolol and hydralazine. He had a history of COPD and chronic respiratory failure and he has been on oxygen at home at 2 L. Today's routine blood work revealed leukocytosis, hemoglobin of 7 g/dL, sodium of 133, potassium 5.2, BUN of 79 and creatinine of 6.62. Past Medical History Past Medical History (Chronic Problems): Chronic Problems (Last Updated 12/08/18 @ 11:30 by Amadou Shane MD) ESRD (end stage renal disease) (Chronic) History of non-ST elevation myocardial infarction (NSTEMI) (Chronic 01/21/11) History of right and left heart catheterization (Chronic 05/24/18) Patent NICHOLAS to LAD, SVG to 1st OM and SVG to RCA. Elevated right heart pressures, significant Diastolic dysfunction per cath done @ [facility], Dr. Barrientos Stented coronary artery (Chronic) 2003, JASON to circumflex ; 10/13/2009 tsfer from [facility] to [facility], total of 5 bare metal stents to RCA per Dr. Barrientos @ [facility]: 3.5 X 18 Janitorial Assistant, followed distally by 3.0 X12 Janitorial Assistant to distal RCA;3.5 X 15 Janitorial Assistant, followed proximally by 4.0 X 18 Janitorial Assistant to Mid RCA; 4.0 X 18 Janitorial Assistant to Proximal RCA S/P CABG x 3 (Chronic 01/26/11) [facility] per Dr. Osito Hernandez: NICHOLAS to LAD, reverse SVG to OMbranch of CX, reverse SVG to PDA of RCA. PDA endarterectomy. Status post peripheral artery angioplasty with insertion of stent (Chronic ~2010) Right common iliac, [facility] Atherosclerotic heart disease of [place] coronary artery without angina pectoris (Chronic) 2003, JASON to circumflex ; 10/10/2009 tsfer from [facility] to [facility], total of 5 bare metal stents to RCA; CABG X 3 vessels @ [facility] 01/31/2011 (critical left main and restenosis of RCA stents) Diastolic CHF (Chronic) HLD (hyperlipidemia) (Chronic) HTN (hypertension) (Chronic) PAD (peripheral artery disease) (Chronic) COPD (chronic obstructive pulmonary disease) (Chronic) Tobacco dependence (Chronic) Anemia (Chronic) BPH (benign prostatic hyperplasia) (Chronic) Medical History: Medical History (Last Updated 12/08/18 @ 11:30 by Amadou Shane MD) History of non-ST elevation myocardial infarction (NSTEMI) (Chronic) Onset Date: 01/21/11 I25.2 Atherosclerotic heart disease of [place] coronary artery without angina pectoris (Chronic) I25.10 2003, JASON to circumflex ; 10/10/2009 tsfer from [facility] to [facility], total of 5 bare metal stents to RCA; CABG X 3 vessels @ [facility] 01/31/2011 (critical left main and restenosis of RCA stents) Diastolic CHF (Chronic) I50.30 HLD (hyperlipidemia) (Chronic) E78.5 HTN (hypertension) (Chronic) I10 PAD (peripheral artery disease) (Chronic) I73.9 COPD (chronic obstructive pulmonary disease) (Chronic) J44.9 Tobacco dependence (Chronic) F17.200 Anemia (Chronic) D64.9 BPH (benign prostatic hyperplasia) (Chronic) N40.0 Allergies irbesartan [From Avapro] Allergy (Severe, Verified 12/06/18 01:12) Blisters zolpidem [From Ambien] Adverse Reaction (Severe, Verified 12/06/18 01:12) made me go crazy, memory loss Home Medications: Ambulatory Orders Medication Instructions Recorded Albuterol Sulfate 2.5 mg IH Q4H PRN 11/13/18 Alprazolam [Xanax] 0.5 mg PO TID PRN 11/13/18 Aspirin E.C. [Ecotrin] 81 mg PO DAILY@0800 11/13/18 Clopidogrel Bisulfate [Plavix] 75 mg PO DAILY 11/13/18 Ferric Citrate [Auryxia] 210 mg PO BID 11/13/18 Lactulose 30 gm PO QODAY 11/13/18 Prednisone 10 mg PO DAILY 11/13/18 Ropinirole HCl [Requip] 1 mg PO QHS 11/13/18 Rosuvastatin Calcium [Crestor] 40 mg PO QHS 11/13/18 Tamsulosin HCl [Flomax] 0.8 mg PO DAILY 11/13/18 hydrALAZINE [Apresoline] 25 mg PO BID 11/13/18 Metoprolol(XL)Succ [Toprol Xl 100 mg PO BID 12/06/18 (Beta Kadi)] Surgical History: Surgical History (Last Updated 12/08/18 @ 11:30 by Amadou Shane MD) History of right and left heart catheterization (Chronic) Onset Date: 05/24/18 Z98.890 Patent NICHOLAS to LAD, SVG to 1st OM and SVG to RCA. Elevated right heart pressures, significant Diastolic dysfunction per cath done @ [facility], Dr. Barrientos Stented coronary artery (Chronic) Z95.5 2003, JASON to circumflex ; 10/13/2009 tsfer from [facility] to [facility], total of 5 bare metal stents to RCA per Dr. Barrientos @ [facility]: 3.5 X 18 Janitorial Assistant, followed distally by 3.0 X12 Janitorial Assistant to distal RCA;3.5 X 15 Janitorial Assistant, followed proximally by 4.0 X 18 Janitorial Assistant to Mid RCA; 4.0 X 18 Janitorial Assistant to Proximal RCA S/P CABG x 3 (Chronic) Onset Date: 01/26/11 Z95.1 [facility] per Dr. Osito Hernandez: NICHOLAS to LAD, reverse SVG to OMbranch of CX, reverse SVG to PDA of RCA. PDA endarterectomy. history of surgically created arteriovenous fistula s/p fistulogram Onset Date: ~09/28/18 Surgical History: coronary bypass surgery, tonsillectomy Psychiatric History: No pertinent psych hx Smoking Status: Current every day smoker Tobacco Use: Cigarettes Alcohol: None Drugs: None - *Family History Maternal Family History: Family History (Last Reviewed 11/13/18 @ 12:56 by Manoj Christensen MD) Father CAD (coronary artery disease) Hypertension Kidney disease CVA (cerebral vascular accident) Other Cancer History Items: Heart Disease Paternal Family History: Family History (Last Reviewed 11/13/18 @ 12:56 by Manoj Christensen MD) Father CAD (coronary artery disease) Hypertension Kidney disease CVA (cerebral vascular accident) Other Cancer History Items: Heart Disease Review of Systems Constitutional: Denies: Anorexia, Chills, Fever, Weakness Eyes: Denies: Blurred vision, Double vision, Drainage, Redness HEENT: Denies: Difficulty Hearing, Ear Pain, Eye Pain, Nasal Congestion, Sore Throat Cardiovascular: Denies: Chest Pain, Chest Pressure, Chest Tightness, Heaviness, Light Headedness, Palpitations, Syncope Respiratory: Reports: Cough, Sputum production. Denies: Pleuritic Pain, Shortness of Breath, Wheezing Gastrointestinal: Reports: Abdominal Pain. Denies: Constipation, Diarrhea, Hematochezia, Nausea, Melena, Vomiting Genitourinary: Denies: Dysuria, Frequency, Hematuria Musculoskeletal: Denies: Arm Pain, Back Pain, Foot Pain Skin: Denies: Dryness, Rash Neurological: Denies: Balance problems, Blurred vision, Double vision, Slurred speech, Confusion, Headaches, Incoordination, Numbness Psychiatric: Denies: Anxiety, Depression Endocrine: Denies: Change in Body Habitus, Polydipsia Patient Problems: Active and Suspected Problems (Last Updated 12/08/18 @ 11:30 by Amadou Shane MD) Colonic ischemia (Acute) - Physical Exam General: Alert, Oriented x3, Cooperative, No apparent distress HEENT: Atraumatic, PERRLA, EOMI, Normocephalic Oral: Moist Mucosa, No Gingival or Mucosal Lesions/ Ulcerations Neck: Supple, No JVD, Negative Carotid Bruits, Trachea Midline, Thyroid Normal Size and Texture Lungs: No wheeze, No rales, Diminished, Rhonchi, - - Diminished breath sounds bilateral, bilateral rhonchi. Cardiovascular: Regular rate, Regular Rhythm, Normal S1, Normal S2, No murmurs Abdomen: Soft, No Hepato-splenomegaly, Hypoactive Bowel Sounds, Distended, Tender - No guarding or rigidity. Extremities: No clubbing, No cyanosis, Edema - + Edema. Skin: No rashes, No breakdown Lymphatic: No Cervical, Supraclavicular, or Inguinal Adenopathy Neurological: Cranial nerves II-XII grossly intact, Motor Exam 5/5 strength throughout Psych/Mental Status: Normal Affect, Appropriate, Alert and oriented to time, place, person, mood and affect Vital Signs Temp Pulse Resp BP Pulse Ox 98.4 F 88 15 151/49 H 98 12/08/18 10:00 12/08/18 11:00 12/08/18 11:00 12/08/18 11:00 12/08/18 11:00 Oxygen Flow Rate (L/min) 2 Oxygen Delivery Method Nasal Cannula Weight: 171 lb 1.259 oz Body Mass Index (BMI) 26.4 Finger Stick Blood Glucose 200 Intake and Output for Last 24 Hours 12/06/18 12/07/18 12/08/18 23:59 23:59 23:59 Intake Total 1127 / 1127 2066.9 / 2066.9 704 / 704 Output Total 0 / 0 125 / 125 0 / 0 Balance 1127 / 1127 1941.9 / 1941.9 704 / 704 Laboratory Tests Past 24 Hrs 12/07/18 12/07/18 12/07/18 04:15 05:40 14:15 WBC RBC Hgb 5.3 L* 7.2 L Hct 22.0 L MCV MCH MCHC RDW RDW Differential Plt Count MPV Immature Gran % (Auto) Neut % (Auto) Lymph % (Auto) [place] % (Auto) Eos % (Auto) Baso % (Auto) Absolute Neuts (auto) Absolute Lymphs (auto) Total Counted Differential Comment Diff Path Review Reviewed Polychromasia Hypochromasia Anisocytosis Microcytosis Sodium Potassium Chloride Carbon Dioxide Anion Gap BUN Creatinine Estim Creat Clear Calc Est GFR (MDRD) Af Amer Est GFR (MDRD) Non-Af BUN/Creatinine Ratio Glucose Calcium 12/08/18 12/08/18 05:35 05:35 WBC 15.4 H RBC 2.22 L Hgb 7.0 L Hct 22.0 L MCV 99.1 H MCH 31.5 MCHC 31.8 L RDW 19.4 H RDW Differential 65.3 H Plt Count 90 L MPV 10.2 Immature Gran % (Auto) 0.300 Neut % (Auto) 91.2 H Lymph % (Auto) 2.0 L [place] % (Auto) 6.5 Eos % (Auto) 0.0 Baso % (Auto) 0.0 Absolute Neuts (auto) 14.1 H Absolute Lymphs (auto) 0.31 L Total Counted Not Reportable Differential Comment SCAN Diff Path Review Polychromasia 1+ Hypochromasia 1+ Anisocytosis 1+ Microcytosis 1+ Sodium 133 L Potassium 5.2 H Chloride 94 L Carbon Dioxide 22.0 Anion Gap 17 H BUN 79 H Creatinine 6.62 H Estim Creat Clear Calc 10.48 Est GFR (MDRD) Af Amer 11 L Est GFR (MDRD) Non-Af 9 L BUN/Creatinine Ratio 11.9 Glucose 128 H Calcium 7.8 L Clinical Impression(s) from Imaging Studies Chest X-Ray 12/06/18 01:23 IMPRESSION: 1. Worsening congestive heart failure. 2. Stable small left pleural effusion. Electronically Signed: Robert García MD at 2:31 EST Tel , Service support , Abdomen/Pelvis CT 12/06/18 01:36 IMPRESSION: 1. Pneumatosis of the cecum and descending colon with extensive portal venous gas throughout the mesenteric venous channels and into the periphery of the liver parenchyma. 2. Bibasilar airspace infiltration, either representing confluent dependent edema or bibasilar pneumonia. 3. Trace bilateral pleural effusions. 4. Left renal atrophy 5. Simple appearing cyst off of the lateral midpole of the left kidney. Electronically Signed: Robert García MD at 2:41 EST Tel , Service support , ADDENDUM: 12/06/18 0253 IMPRESSION: 1. Pneumatosis of the cecum and descending colon with extensive portal venous gas throughout the mesenteric venous channels and into the periphery of the liver parenchyma. 2. Bibasilar airspace infiltration, either representing confluent dependent edema or bibasilar pneumonia. 3. Trace bilateral pleural effusions. 4. Left renal atrophy 5. Simple appearing cyst off of the lateral midpole of the left kidney. N.B. : The above information has been verbally conveyed by Robert García MD to Andreia Jeffery MD, MD, on 12/06/2018 02:45:55 (ET). Electronically Signed: Robert García MD at 2:41 EST Tel , Service support , Chest X-Ray 12/06/18 08:29 IMPRESSION: The tip of the endotracheal tube is at 6.5 sinus proximal to the iliana. The tip of the nasogastric tube is in the body of the stomach just distal to the gastroesophageal junction. Left basilar atelectasis and/or infiltrate with small left effusion. Central vascular congestion. Electronically Signed: Deven Hensley MD at 9:46 EST , Service support , Chest X-Ray 12/06/18 11:12 IMPRESSION: Placement of left IJ central venous catheter as above. No pneumothorax. Remainder is essentially unchanged Electronically Signed: Salas MejiaDO gaby at 12:49 EST Tel , Service support , KUB X-Ray 12/07/18 06:27 IMPRESSION: 1. The NG tube tip lies at the GE junction and should be advanced. 2. No bowel obstruction. Chronic changes, as above. ADDENDUM: Repeat supine abdomen 12/07/2018 Repeat supine view of the abdomen was obtained following advancement of the NG tube placing the tip within the stomach lumen. Abdominal findings are otherwise unchanged. Extensive atherosclerotic calcifications. No bowel obstruction. ADDENDUM IMPRESSION: Follow-up exam shows satisfactory position of the NG tube tip within the stomach. at 0714 Reported and signed by: Asif Gannon MD Electronically Signed: Asif Gannon, at 7:13 EST Tel , Service support , KUB X-Ray 12/07/18 06:47 IMPRESSION: The tip of the orogastric tube is in the body of the stomach. 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 #1 ischemic colitis of the right and transverse colon: Status post exploratory laparotomy with resection of right and transverse colon, creation of end ileostomy. Postoperative day 2. Patient started medically liquids, still having abdominal pain and tenderness. No flatus, no bowel movement. Blood pressure is elevated, afebrile, heart rate stable, pulse ox is 98% on 2 L. General surgery on the case. Plan to continue same treatment. #2 probable septic shock: Attributed to probably ischemic colitis as well as adrenal insufficiency as patient has been on long-term steroids. He is on IV Zosyn empirically, he has been afebrile,. He is on stress dose of IV steroids. Today, he is hypertensive. Started on hydralazine and metoprolol. Plan to control blood pressure, wean off IV steroids. #3 acute on chronic hypoxic respiratory failure: Status post extubation. He is maintaining his pulse ox on 2 L which is his baseline at home. Chest x-ray done depressive the and showed no acute changes. #4 acute on chronic anemia: Likely due to blood loss during surgery and hemodilution. Hemoglobin was as low as 5.3, received 1 unit of packed RBCs and now he is getting a second. Today's hemoglobin is 7 g/dL. Plan to repeat CBC tomorrow morning. #5 mild hyperkalemia: Today's potassium is 5.2, he is on dialysis now. Plan to repeat BMP tomorrow morning. #6 CAD status post CABG: Stable, no acute issues. He is on metoprolol. Plan to resume aspirin and Plavix as well as statins later. #7 chronic diastolic CHF: Clinically stable, compensated. He is only on metoprolol and dialysis. He is not on HEATHER inhibitors because of end-stage renal disease. #8 COPD/chronic respiratory failure: He is on oxygen at 2 L. At this time, pulse ox is 98% on 2 L. He is on bronchodilators and IV antibiotics. #9 ESRD on hemodialysis: On dialysis on Mondays, Wednesdays and Fridays, nephrology consulted. #10 hypertension: Blood pressure is elevated, uncontrolled. Started back on hydralazine and metoprolol, plan to monitor and control. #11 benign prostatic hypertrophy: Continue Flomax when allowed to take p.o. #12 DVT prophylaxis: SCDs. This note was generated with [employer] software. It may contain incorrect words, spelling, and punctuation that were not noted in checking the note before signing. Code Visit Inpatient E&M: 18391 Init Hosp L3
--- NOTE | 2018-12-08 11:59 | DIALYSIS ---
Hemodialysis x 3.75 hours completed. Pt tolerated tx well. Fluid balance -3500ml. Heparin 1000units/ml to close CVC ports to fill volume. Report given to RAYMOND Alves. Pt stable.
[2018-12-08] MEDS: Heparin 10,000 UNITS/10 ML Vial IV (12:00)
[2018-12-08] MEDS: Metoprolol(XL)Succ 100 MG Tablet PO ×2 (12:22→21:58)
[2018-12-08] MEDS: hydrALAZINE 25 MG Tablet PO ×2 (12:23→21:58)
[2018-12-08] MEDS: predniSONE 10 MG Tablet PO (12:24)
--- NOTE | 2018-12-08 17:12 | PN.RENAL_ITS ---
Patient Problems: Active and Suspected Problems (Last Updated 12/08/18 @ 11:30 by Amadou Shane MD) Colonic ischemia (Acute) Subjective: Patient was dialyzed earlier today with 3.5 L ultrafiltration. His breathing is much better after dialysis. No nausea no vomiting. No chest pain - Physical Exam General: Alert, Oriented x3 HEENT: Atraumatic Oral: Moist Mucosa Neck: Supple, No JVD Lungs: Clear to auscultation, Normal air movement, No rhonchi, No wheeze Cardiovascular: Regular rate, Regular Rhythm, Normal S1, Normal S2 Abdomen: Bowel Sounds Present, Soft, Non-Distended Extremities: No clubbing, No cyanosis, Edema - +1 edema of LE Musculoskeletal: No Muscle Wasting Neurological: Cranial nerves II-XII grossly intact, Neuro grossly intact Psych/Mental Status: Normal Affect Vital Signs Temp Pulse Resp BP Pulse Ox 97.6 F L 80 19 H 143/41 H 99 12/08/18 16:00 12/08/18 17:00 12/08/18 17:00 12/08/18 17:00 12/08/18 17:00 Oxygen Flow Rate (L/min) 2 Oxygen Delivery Method Nasal Cannula Weight: 77.6 kg Body Mass Index (BMI) 26.4 Finger Stick Blood Glucose 200 Intake and Output for Last 24 Hours 12/06/18 12/07/18 12/08/18 23:59 23:59 23:59 Intake Total 1127 / 1127 2066.9 / 2066.9 1715 / 1715 Output Total 0 / 0 125 / 125 3500 / 3500 Balance 1127 / 1127 1941.9 / 1941.9 -1785 / -1785 Laboratory Tests Past 24 Hrs 12/08/18 12/08/18 05:35 05:35 WBC 15.4 H RBC 2.22 L Hgb 7.0 L Hct 22.0 L MCV 99.1 H MCH 31.5 MCHC 31.8 L RDW 19.4 H RDW Differential 65.3 H Plt Count 90 L MPV 10.2 Immature Gran % (Auto) 0.300 Neut % (Auto) 91.2 H Lymph % (Auto) 2.[address] [place] % (Auto) 6.5 Eos % (Auto) 0.0 Baso % (Auto) 0.0 Absolute Neuts (auto) 14.1 H Absolute Lymphs (auto) 0.31 L Total Counted Not Reportable Differential Comment SCAN Polychromasia 1+ Hypochromasia 1+ Anisocytosis 1+ Microcytosis 1+ Sodium 133 L Potassium 5.2 H Chloride 94 L Carbon Dioxide 22.0 Anion Gap 17 H BUN 79 H Creatinine 6.62 H Estim Creat Clear Calc 10.48 Est GFR (MDRD) Af Amer 11 L Est GFR (MDRD) Non-Af 9 L BUN/Creatinine Ratio 11.9 Glucose 128 H Calcium 7.8 L Medical Necessity - Tobacco Use Smoking Status: Current every day smoker Tobacco Use: Cigarettes Assessment/Plan All Active Problems (Last Updated 12/08/18 @ 11:30 by Amadou Shane MD) Hyperkalemia (Acute) Colonic ischemia (Acute) 1-End-stage renal disease on Tuesday hemodialysis schedule. Patient goes to [facility] hemodialysis center. Patient had hemodialysis earlier today with 3.5 L ultrafiltration. Hemodialysis access is a right IJ AV fistula. Patient has left upper extremity AV fistula which was used for 1 time in hemodialysis center but infiltrated Evaluate the need for hemodialysis tomorrow 2-anemia: Patient received 1 unit of RBCs yesterday. Hemoglobin 7.0 today. Continue to monitor H&H 3-pneumatosis of the colon with ischemic bowel. Status post colectomy with colostomy. Will defer the management to the surgery team. 4-Respiratory failure. extubated. On NC. Renal team will continue to follow. Please call with any question
[2018-12-08] MEDS: oxyCODONE 5 MG Tablet 7.5 MG PO (23:14)
[2018-12-09] VITALS (29 sets, daily range): BP systolic 129–160; BP diastolic 40–74; PULSE 72–102; RESP 11–20; TEMP 36.6–36.8; O2SAT 94–100
[2018-12-09] MEDS: Ipratropium/Albuterol Sulfate 3 ML AMPUL.NEB INHALATION ×6 (02:07→23:23)
[2018-12-09] MEDS: fentaNYL 100 MCG/2 ML Ampul 25 MCG IV ×4 (03:35→17:59)
[2018-12-09] MEDS: 0.9% NaCl Peripheral Flush Adult/Peds IV ×8 (03:35→22:28)
[2018-12-09 04:58] LABS: Absolute Lymphocyte Count 0.46 X10^3/ul (0.83-4.51); Absolute Neutrophil Count 10.6 X10^3/uL (2.0-7.7); Eosinophil# 0.02 X10^3/uL; Eosinophils% 0.2 % (0-5); Hematocrit 21.7 % (40-54); Hemoglobin 6.8 g/dl (13.0-16.5); Lymphocyte # 0.46 X10^3/ul (4.0); Lymphocyte % 3.6 % (19-41); Mean Corp Hgb Conc 31.3 g/gl (32-36); Mean Corpuscular Hgb 31.2 pg (27.0-32.0); Mean Corpuscular Volume 99.5 fL (80-94); Mean Platelet Vol. 10.3 fl (6.2-12.0); Monocyte# 1.55 X10^3/uL; Monocyte% 12.3 % (0-10); Neutrophil # 10.56 X10^3/uL (2.7-7.7); Neutrophil % 83.7 % (47-70); Platelet Count 99 K/mm3 (150-450); RBC Distribution Width CV 19.1 % (11.6-14.6); RBC Distribution Width SD 68.2 fl (35.1-43.9); Red Blood Count 2.18 M/mm3 (4.6-6.2); White Blood Count 12.6 K/mm3 (4.4-11.0)
[2018-12-09 05:07] LABS: Anion Gap 15 (5-15); BUN 43 mg/dL (7-18); BUN/Creat Ratio 10.2 RATIO (10-20); Calcium,Total 7.9 mg/dL (8.5-10.1); Chloride 96 mmol/L (98-107); Creatinine, Serum 4.23 mg/dL (0.70-1.30); EST Glomerular Filtration Rate 15 mL/min (>60); Est Glom Filt Rate - Afr Amer 18 mL/min (>60); Estimated Creatinine Clearance 16.39 ml/min; Glucose 98 mg/dL (74-106); Potassium 4.1 mmol/L (3.5-5.1); Sodium Level 137 mmol/L (136-145)
[2018-12-09 06:41] LABS: Differential Indicated SCAN CRITERIA MET; POSITIVE COUNT NO; POSITIVE DIFFERENTIAL YES; POSITIVE MORPHOLOGY YES
[2018-12-09 06:46] LABS: Anisocytosis 1+; Differential Comment SEE COMMENTS; Hypochromasia 1+; Macrocytosis 1+; Ovalocyte RARE; Platelet Estimate MOD DEC (ADEQ)
[2018-12-09] MEDS: oxyCODONE 5 MG Tablet 7.5 MG PO ×3 (06:47→22:08)
--- NOTE | 2018-12-09 08:44 | PCM.PN.SRG ---
Patient Problems: Active and Suspected Problems (Last Updated 12/08/18 @ 11:30 by Amadou Shane MD) Colonic ischemia (Acute) Subjective: Patient moved from ICU to PCU last night, patient tolerating clears, positive output out of the ileostomy, denies any nausea or vomiting, tolerated dialysis well yesterday, hemoglobin is 6.8 this morning we will give 1 unit packed red blood cells, white blood cell count down to 12.6 from 15 - Physical Exam General: Alert, Oriented x3, Cooperative, No apparent distress HEENT: Atraumatic Lungs: Normal air movement Cardiovascular: Regular rate Abdomen: Soft, Distended - Mild, Tender - Appropriate near incision, no peritoneal signs, incision clean dry and intact with leslie/retention sutures/wet-to-dry packing in between some sutures with inferior area having some sanguinous drainage on the packing., - - Mucous fistula pink/viable, ileostomy pink/viable with brown stool and questionable blood in ileostomy bag. Vital Signs Temp Pulse Resp BP Pulse Ox 98.3 F 80 16 148/74 H 99 12/09/18 03:27 12/09/18 06:56 12/09/18 06:50 12/09/18 03:27 12/09/18 06:50 Oxygen Flow Rate (L/min) 3 Oxygen Delivery Method Nasal Cannula Weight: 173 lb 15.115 oz Body Mass Index (BMI) 26.4 Finger Stick Blood Glucose 200 Intake and Output for Last 24 Hours 12/07/18 12/08/18 12/09/18 23:59 23:59 23:59 Intake Total 2066.9 / 2066.9 1719.7 / 1719.7 75.5 / 75.5 Output Total 125 / 125 3500 / 3500 0 / 0 Balance 1941.9 / 1941.9 -1780.3 / -1780.3 75.5 / 75.5 Laboratory Tests Past 24 Hrs 12/09/18 12/09/18 04:30 04:30 WBC 12.6 H RBC 2.18 L Hgb 6.8 L Hct 21.7 L MCV 99.5 H MCH 31.2 MCHC 31.3 L RDW 19.1 H RDW Differential 68.2 H Plt Count 99 L MPV 10.3 Immature Gran % (Auto) 0.200 Neut % (Auto) 83.7 H Lymph % (Auto) 3.6 L [place] % (Auto) 12.3 H Eos % (Auto) 0.2 Baso % (Auto) 0.0 Absolute Neuts (auto) 10.6 H Absolute Lymphs (auto) 0.46 L Total Counted Not Reportable Differential Comment SEE COMMENTS Diff Path Review May foll Platelet Estimate MOD DEC Hypochromasia 1+ Anisocytosis 1+ Macrocytosis 1+ Ovalocytes RARE Sodium 137 Potassium 4.1 Chloride 96 L Carbon Dioxide 26.0 Anion Gap 15 BUN 43 H Creatinine 4.23 H Estim Creat Clear Calc 16.39 Est GFR (MDRD) Af Amer 18 L Est GFR (MDRD) Non-Af 15 L BUN/Creatinine Ratio 10.2 Glucose 98 Calcium 7.9 L Medical Necessity - Tobacco Use Smoking Status: Current every day smoker Tobacco Use: Cigarettes Assessment/Plan All Active Problems (Last Updated 12/08/18 @ 11:30 by Amadou Shane MD) Hyperkalemia (Acute) Colonic ischemia (Acute) 1. Advanced to full's. 2. Anemia?hemoglobin 6.8 from 7 will give 1 unit of packed red blood cells 3. Continue wound dressing with wet-to-dry's in between leslie. 4. Change Protonix to 40 mg twice daily as the ileostomy output looks to may have some small amount of blood mixed with mostly stool 5. End-stage renal disease on dialysis, appreciate nephrology's input, patient tolerated dialysis well yesterday per nursing 6. Leukocytosis improved to 12.6 from 15 continue Zosyn IV Lizzie Tavares M.D. Pager: [phone] [facility] [address] [place] [address], Outpatient Pavilion, [address] [place] [address] Office: [phone]
--- NOTE | 2018-12-09 08:48 | PN.SURG_ITS ---
Patient Problems: Active and Suspected Problems (Last Updated 12/08/18 @ 11:30 by Amadou Shane MD) Colonic ischemia (Acute) Subjective: Patient moved from ICU to PCU last night, patient tolerating clears, positive output out of the ileostomy, denies any nausea or vomiting, tolerated dialysis well yesterday, hemoglobin is 6.8 this morning we will give 1 unit packed red blood cells, white blood cell count down to 12.6 from 15 - Physical Exam General: Alert, Oriented x3, Cooperative, No apparent distress HEENT: Atraumatic Lungs: Normal air movement Cardiovascular: Regular rate Abdomen: Soft, Distended - Mild, Tender - Appropriate near incision, no peritoneal signs, incision clean dry and intact with leslie/retention sutures/wet-to-dry packing in between some sutures with inferior area having some sanguinous drainage on the packing., - - Mucous fistula pink/viable, ileostomy pink/viable with brown stool and questionable blood in ileostomy bag. Vital Signs Temp Pulse Resp BP Pulse Ox 98.3 F 80 16 148/74 H 99 12/09/18 03:27 12/09/18 06:56 12/09/18 06:50 12/09/18 03:27 12/09/18 06:50 Oxygen Flow Rate (L/min) 3 Oxygen Delivery Method Nasal Cannula Weight: 173 lb 15.115 oz Body Mass Index (BMI) 26.4 Finger Stick Blood Glucose 200 Intake and Output for Last 24 Hours 12/07/18 12/08/18 12/09/18 23:59 23:59 23:59 Intake Total 2066.9 / 2066.9 1719.7 / 1719.7 75.5 / 75.5 Output Total 125 / 125 3500 / 3500 0 / 0 Balance 1941.9 / 1941.9 -1780.3 / -1780.3 75.5 / 75.5 Laboratory Tests Past 24 Hrs 12/09/18 12/09/18 04:30 04:30 WBC 12.6 H RBC 2.18 L Hgb 6.8 L Hct 21.7 L MCV 99.5 H MCH 31.2 MCHC 31.3 L RDW 19.1 H RDW Differential 68.2 H Plt Count 99 L MPV 10.3 Immature Gran % (Auto) 0.200 Neut % (Auto) 83.7 H Lymph % (Auto) 3.6 L [place] % (Auto) 12.3 H Eos % (Auto) 0.2 Baso % (Auto) 0.0 Absolute Neuts (auto) 10.6 H Absolute Lymphs (auto) 0.46 L Total Counted Not Reportable Differential Comment SEE COMMENTS Diff Path Review May foll Platelet Estimate MOD DEC Hypochromasia 1+ Anisocytosis 1+ Macrocytosis 1+ Ovalocytes RARE Sodium 137 Potassium 4.1 Chloride 96 L Carbon Dioxide 26.0 Anion Gap 15 BUN 43 H Creatinine 4.23 H Estim Creat Clear Calc 16.39 Est GFR (MDRD) Af Amer 18 L Est GFR (MDRD) Non-Af 15 L BUN/Creatinine Ratio 10.2 Glucose 98 Calcium 7.9 L Medical Necessity - Tobacco Use Smoking Status: Current every day smoker Tobacco Use: Cigarettes Assessment/Plan All Active Problems (Last Updated 12/08/18 @ 11:30 by Amadou Shane MD) Hyperkalemia (Acute) Colonic ischemia (Acute) 1. Advanced to full's. 2. Anemia?hemoglobin 6.8 from 7 will give 1 unit of packed red blood cells 3. Continue wound dressing with wet-to-dry's in between leslie. 4. Change Protonix to 40 mg twice daily as the ileostomy output looks to may have some small amount of blood mixed with mostly stool 5. End-stage renal disease on dialysis, appreciate nephrology's input, patient tolerated dialysis well yesterday per nursing 6. Leukocytosis improved to 12.6 from 15 continue Zosyn IV Lizzie Tavares M.D. Pager: [phone] [facility] [address] [place] [address], Outpatient Pavilion, [address] [place] [address] Office: [phone]
--- NOTE | 2018-12-09 08:52 | PN_ITS ---
Patient Problems: Active and Suspected Problems (Last Updated 12/08/18 @ 11:30 by Amadou Shane MD) Colonic ischemia (Acute) Subjective: Chief complaint: Follow-up after consultation for postoperative medical management. Patient seen and examined. No acute events overnight. This morning, he complained of slightly worsening shortness of breath than usual. Still complaining of abdominal discomfort upon coughing. He is not sure if he passed flatus, no bowel movement. He is afebrile, blood pressure and heart rate are m aintained, pulse ox is 97% on 2 L. - Physical Exam General: Alert, Oriented x3, Cooperative, No apparent distress HEENT: Atraumatic, PERRLA, EOMI, Normocephalic Oral: Moist Mucosa, No Gingival or Mucosal Lesions/ Ulcerations Neck: Supple, No JVD, Negative Carotid Bruits, Trachea Midline, Thyroid Normal Size and Texture Lungs: Clear to auscultation, No wheeze, No rales, Diminished, Rhonchi Cardiovascular: Regular rate, Regular Rhythm, Normal S1, Normal S2, PMI Normal Abdomen: Soft, Non Tender, No Hepato-splenomegaly, Hypoactive Bowel Sounds, Distended Extremities: No clubbing, No cyanosis, Edema - + Edema. Skin: No rashes, No breakdown Lymphatic: No Cervical, Supraclavicular, or Inguinal Adenopathy Neurological: Cranial nerves II-XII grossly intact, Neuro grossly intact Psych/Mental Status: Normal Affect, Appropriate, Alert and oriented to time, place, person, mood and affect Vital Signs Temp Pulse Resp BP Pulse Ox 98.3 F 80 16 148/74 H 99 12/09/18 03:27 12/09/18 06:56 12/09/18 06:50 12/09/18 03:27 12/09/18 06:50 Oxygen Flow Rate (L/min) 3 Oxygen Delivery Method Nasal Cannula Weight: 173 lb 15.115 oz Body Mass Index (BMI) 26.4 Finger Stick Blood Glucose 200 Intake and Output for Last 24 Hours 12/07/18 12/08/18 12/09/18 23:59 23:59 23:59 Intake Total 2066.9 / 2066.9 1719.7 / 1719.7 75.5 / 75.5 Output Total 125 / 125 3500 / 3500 0 / 0 Balance 1941.9 / 1941.9 -1780.3 / -1780.3 75.5 / 75.5 Laboratory Tests Past 24 Hrs 12/09/18 12/09/18 04:30 04:30 WBC 12.6 H RBC 2.18 L Hgb 6.8 L Hct 21.7 L MCV 99.5 H MCH 31.2 MCHC 31.3 L RDW 19.1 H RDW Differential 68.2 H Plt Count 99 L MPV 10.3 Immature Gran % (Auto) 0.200 Neut % (Auto) 83.7 H Lymph % (Auto) 3.6 L [place] % (Auto) 12.3 H Eos % (Auto) 0.2 Baso % (Auto) 0.0 Absolute Neuts (auto) 10.6 H Absolute Lymphs (auto) 0.46 L Total Counted Not Reportable Differential Comment SEE COMMENTS Diff Path Review May foll Platelet Estimate MOD DEC Hypochromasia 1+ Anisocytosis 1+ Macrocytosis 1+ Ovalocytes RARE Sodium 137 Potassium 4.1 Chloride 96 L Carbon Dioxide 26.0 Anion Gap 15 BUN 43 H Creatinine 4.23 H Estim Creat Clear Calc 16.39 Est GFR (MDRD) Af Amer 18 L Est GFR (MDRD) Non-Af 15 L BUN/Creatinine Ratio 10.2 Glucose 98 Calcium 7.9 L Medical Necessity - Tobacco Use Smoking Status: Current every day smoker Tobacco Use: Cigarettes Assessment/Plan All Active Problems (Last Updated 12/08/18 @ 11:30 by Amadou Shane MD) Hyperkalemia (Acute) Colonic ischemia (Acute) This is a 68 years old male patient presented to the emergency room because of abdominal pain, found to have ischemic colitis of the right and transverse colon, underwent exploratory laparotomy with resection of the right and transverse colon with creation of end ileostomy and his postoperative course complicated by acute on chronic respiratory failure status post extubation and probable septic shock secondary to ischemic colitis and I am seeing this patient in consultation for postoperative medical management. #1 ischemic colitis of the right and transverse colon: Status post exploratory laparotomy with resection of right and transverse colon, creation of end ileostomy. Postoperative day 3. He is tolerating clear liquids. Not sure if he has flatus, no bowel movement, abdominal pain still there but improving. General surgery on the case. Plan to continue same treatment, advance diet to full liquid diet according to surgery. #2 probable septic shock: Attributed to probably ischemic colitis as well as adrenal insufficiency as patient has been on long-term steroids. Remained on IV Zosyn empirically, he has been afebrile. Blood pressure is maintained. IV steroids discontinued, on oral prednisone. Plan to continue IV Zosyn for now. #3 acute on chronic hypoxic respiratory failure: Status post extubation. He is maintaining his pulse ox on 2 L which is his baseline at home. Chest x-ray done depressive the and showed no acute changes. #4 acute on chronic anemia: Likely due to blood loss during surgery and hemodilution. Today, hemoglobin went down again to 6.8 compensated. At this time, no obvious active bleeding. Plan to transfuse 2 units of packed RBCs, repeat CBC tomorrow morning. #5 mild hyperkalemia: Yesterday's potassium is 5.2, he is on dialysis now. A fter dialysis, potassium normalized, today's potassium is 4.1. #6 CAD status post CABG: Stable, no acute issues. He is on metoprolol. Plan to resume aspirin and Plavix as well as statins later. #7 chronic diastolic CHF: Clinically stable, compensated. He is only on metoprolol and dialysis. He is not on HEATHER inhibitors because of end-stage renal disease. #8 COPD/chronic respiratory failure: He is on oxygen at 2 L. At this time, pulse ox is 98% on 2 L. He is on bronchodilators and IV antibiotics. #9 ESRD on hemodialysis: On dialysis on Mondays, Wednesdays and Fridays, nephrology consulted. Received hemodialysis yesterday. #10 hypertension: Blood pressure is under better control. He is on hydralazine and metoprolol, plan to monitor and control. #11 benign prostatic hypertrophy: Continue Flomax when allowed to take p.o. #12 DVT prophylaxis: SCDs. This note was generated with [employer] dictation software. It may contain incorrect words, spelling, and punctuation that were not noted in checking the note before signing. Code Visit Inpatient E&M: [id number] [facility] L3
[2018-12-09] MEDS: predniSONE 10 MG Tablet PO (09:00)
[2018-12-09] MEDS: Metoprolol(XL)Succ 100 MG Tablet PO ×2 (09:00→22:08)
[2018-12-09] MEDS: hydrALAZINE 25 MG Tablet PO ×2 (09:01→22:07)
--- NOTE | 2018-12-09 11:25 | PN_ITS ---
Patient Problems: Active and Suspected Problems (Last Updated 12/08/18 @ 11:30 by Amadou Shane MD) Colonic ischemia (Acute) Subjective: Patient transferred out of the intensive care unit yesterday. Patient feels subjectively unchanged compared to previous. Patient does report a little bit of tight breathing. Patient denies any significant change in abdominal pain. Patient does believe he is passing gas. Patient denies any nausea or vomiting. Patient feels his cough is slightly improved. - Physical Exam General: Alert, Oriented x3, Cooperative, No apparent distress, - - Appears older than stated age. HEENT: Atraumatic, PERRLA, EOMI, Normocephalic, - - Nasal cannula in place. No scleral icterus or injection noted. Oral: Moist Mucosa, No Gingival or Mucosal Lesions/ Ulcerations Neck: Supple, No Nodes, Trachea Midline, JVD, Right Lungs: No rhonchi, No rales, Diminished, Wheezes, - - Symmetric expansion. Cardiovascular: Regular rate, Regular Rhythm, Normal S1, Normal S2, No murmurs, No rub noted, No Gallop Abdomen: Bowel Sounds Present, Soft, Non Tender, Non-Distended Extremities: No cyanosis, Clubbing, Edema Skin: No rashes, No breakdown Musculoskeletal: No Tenderness to Palpation of Joints or Extremities Lymphatic: No Cervical, Supraclavicular, or Inguinal Adenopathy Neurological: Cranial nerves II-XII grossly intact, Neuro grossly intact, Motor Exam 5/5 strength throughout Psych/Mental Status: Alert and oriented to time, place, person, mood and affect Vital Signs Temp Pulse Resp BP Pulse Ox 36.7 C 77 18 151/49 H 99 12/09/18 08:45 12/09/18 10:57 12/09/18 08:45 12/09/18 09:01 12/09/18 08:45 Oxygen Flow Rate (L/min) 3 Oxygen Delivery Method Nasal Cannula Weight: 78.9 kg Body Mass Index (BMI) 26.4 Finger Stick Blood Glucose 200 Intake and Output for Last 24 Hours 12/07/18 12/08/18 12/09/18 23:59 23:59 23:59 Intake Total 2066.9 / 2066.9 1719.7 / 1719.7 75.5 / 75.5 Output Total 125 / 125 3500 / 3500 0 / 0 Balance 1941.9 / 1941.9 -1780.3 / -1780.3 75.5 / 75.5 Laboratory Tests Past 24 Hrs 12/09/18 12/09/18 12/09/18 04:30 04:30 09:25 WBC 12.6 H RBC 2.18 L Hgb 6.8 L Hct 21.7 L MCV 99.5 H MCH 31.2 MCHC 31.3 L RDW 19.1 H RDW Differential 68.2 H Plt Count 99 L MPV 10.3 Immature Gran % (Auto) 0.200 Neut % (Auto) 83.7 H Lymph % (Auto) 3.6 L [place] % (Auto) 12.3 H Eos % (Auto) 0.2 Baso % (Auto) 0.0 Absolute Neuts (auto) 10.6 H Absolute Lymphs (auto) 0.46 L Total Counted Not Reportable Differential Comment SEE COMMENTS Diff Path Review May foll Platelet Estimate MOD DEC Hypochromasia 1+ Anisocytosis 1+ Macrocytosis 1+ Ovalocytes RARE Sodium 137 Potassium 4.1 Chloride 96 L Carbon Dioxide 26.0 Anion Gap 15 BUN 43 H Creatinine 4.23 H Estim Creat Clear Calc 16.39 Est GFR (MDRD) Af Amer 18 L Est GFR (MDRD) Non-Af 15 L BUN/Creatinine Ratio 10.2 Glucose 98 Calcium 7.9 L Blood Type Pending Antibody Screen Pending Crossmatch See Detail 12/09/18 09:25 WBC RBC Hgb Hct MCV MCH MCHC RDW RDW Differential Plt Count MPV Immature Gran % (Auto) Neut % (Auto) Lymph % (Auto) [place] % (Auto) Eos % (Auto) Baso % (Auto) Absolute Neuts (auto) Absolute Lymphs (auto) Total Counted Differential Comment Diff Path Review Platelet Estimate Hypochromasia Anisocytosis Macrocytosis Ovalocytes Sodium Potassium Chloride Carbon Dioxide Anion Gap BUN Creatinine Estim Creat Clear Calc Est GFR (MDRD) Af Amer Est GFR (MDRD) Non-Af BUN/Creatinine Ratio Glucose Calcium Blood Type Antibody Screen Crossmatch See Detail Medical Necessity - Tobacco Use Smoking Status: Current every day smoker Tobacco Use: Cigarettes Assessment/Plan All Active Problems (Last Updated 12/08/18 @ 11:30 by Amadou Shane MD) Hyperkalemia (Acute) Colonic ischemia (Acute) RECOMMENDATIONS: 1. May need hemodialysis early 2. Reinitiate baseline blood pressure medications 3. Increase activity as tolerated 4. Continue pain control 5. Monitor volume status closely IMPRESSIONS: 1. Septic shock/relative adrenal insufficiency secondary to ischemic colitis Patient has been doing well from a blood pressure standpoint. Patient now currently hypertensive. Tolerating 10 mg of prednisone well. Patient remains on IV antibiotics. This will likely be continued for 5-7 days. Clinical suspicion for translocation through ischemic bowel. 2. Acute respiratory failure secondary to ischemic colitis/presumed COPD Patient successfully extubated. Patient on his baseline nasal cannula oxygen. Okay to continue with bronchodilators. Continue to follow closely. Encourage incentive spirometer and activity as tolerated. 3. Embolic ischemic colitis status post resection postop day #3 Surgery is currently following. Patient appears to be significantly overloaded at this time. Will need to follow closely. Patient's ostomy appears to be functioning well at this point. Surgery following. 4. Chronic diastolic congestive heart failure Patient with multiple admissions in the past secondary to congestive heart failure complicated by end-stage renal disease. Home medical therapy will be held for now given acute condition. Patient will need volume removal with hemodialysis today. 5. Peripheral artery disease/hypertension/hyperlipidemia/end-stage renal disease/anemia of chronic disease Complicates care, management, recovery and prognosis. Renal has been consulted for hemodialysis. Blood pressure medication should be held secondary to acute condition. 6. Anemia Unclear etiology at this time. Patient may have had an element of hemoconcentration on presentation, but does not appear to be acutely losing blood at this time. Transfusions have been ordered.
[2018-12-09] MEDS: LORazepam 0.5 MG Tablet PO (12:15)
--- NOTE | 2018-12-09 15:45 | PCM.PN.REN ---
Patient Problems: Active and Suspected Problems (Last Updated 12/08/18 @ 11:30 by Amadou Shane MD) Colonic ischemia (Acute) Subjective: no new complaints - Physical Exam General: Alert, Oriented x3, Cooperative HEENT: Atraumatic, PERRLA, EOMI, Normocephalic Neck: Supple, No JVD, Negative Carotid Bruits Lungs: Clear to auscultation, Normal air movement Cardiovascular: Regular rate, No murmurs Abdomen: Bowel Sounds Present, Soft, Non Tender Extremities: No edema, Capillary Refill Less than 3 Seconds Skin: No rashes, No breakdown Musculoskeletal: No Tenderness to Palpation of Joints or Extremities Neurological: Cranial nerves II-XII grossly intact Psych/Mental Status: Normal Affect, Appropriate Vital Signs Temp Pulse Resp BP Pulse Ox 98.0 F 72 18 137/45 H 94 12/09/18 15:16 12/09/18 14:57 12/09/18 15:16 12/09/18 15:16 12/09/18 15:16 Oxygen Flow Rate (L/min) 2.5 Oxygen Delivery Method Nasal Cannula Weight: 78.9 kg Body Mass Index (BMI) 26.4 Finger Stick Blood Glucose 200 Intake and Output for Last 24 Hours 12/07/18 12/08/18 12/09/18 23:59 23:59 23:59 Intake Total 2066.9 / 2066.9 1719.7 / 1719.7 434.5 / 434.5 Output Total 125 / 125 3500 / 3500 195 / 195 Balance 1941.9 / 1941.9 -1780.3 / -1780.3 239.5 / 239.5 Laboratory Tests Past 24 Hrs 12/06/18 12/09/18 12/09/18 05:08 04:30 04:30 WBC 12.6 H RBC 2.18 L Hgb 6.8 L Hct 21.7 L MCV 99.5 H MCH 31.2 MCHC 31.3 L RDW 19.1 H RDW Differential 68.2 H Plt Count 99 L MPV 10.3 Immature Gran % (Auto) 0.200 Neut % (Auto) 83.7 H Lymph % (Auto) 3.6 L [place] % (Auto) 12.3 H Eos % (Auto) 0.2 Baso % (Auto) 0.0 Absolute Neuts (auto) 10.6 H Absolute Lymphs (auto) 0.46 L Total Counted Not Reportable Differential Comment SEE COMMENTS Diff Path Review May foll Platelet Estimate MOD DEC Hypochromasia 1+ Anisocytosis 1+ Macrocytosis 1+ Ovalocytes RARE Sodium 137 Potassium 4.1 Chloride 96 L Carbon Dioxide 26.0 Anion Gap 15 BUN 43 H Creatinine 4.23 H Estim Creat Clear Calc 16.39 Est GFR (MDRD) Af Amer 18 L Est GFR (MDRD) Non-Af 15 L BUN/Creatinine Ratio 10.2 Glucose 98 Calcium 7.9 L Blood Type Antibody Screen Crossmatch See Detail 12/09/18 12/09/18 09:25 09:25 WBC RBC Hgb Hct MCV MCH MCHC RDW RDW Differential Plt Count MPV Immature Gran % (Auto) Neut % (Auto) Lymph % (Auto) [place] % (Auto) Eos % (Auto) Baso % (Auto) Absolute Neuts (auto) Absolute Lymphs (auto) Total Counted Differential Comment Diff Path Review Platelet Estimate Hypochromasia Anisocytosis Macrocytosis Ovalocytes Sodium Potassium Chloride Carbon Dioxide Anion Gap BUN Creatinine Estim Creat Clear Calc Est GFR (MDRD) Af Amer Est GFR (MDRD) Non-Af BUN/Creatinine Ratio Glucose Calcium Blood Type A NEGATIVE Antibody Screen NEGATIVE Crossmatch See Detail See Detail Medical Necessity - Tobacco Use Smoking Status: Current every day smoker Tobacco Use: Cigarettes Assessment/Plan All Active Problems (Last Updated 12/08/18 @ 11:30 by Amadou Shane MD) Hyperkalemia (Acute) Colonic ischemia (Acute) 1-End-stage renal disease on Tuesday hemodialysis schedule. Patient goes to [facility]. Patient had hemodialysis yesterday 2-anemia: Patient received 1 unit of RBCs 3-pneumatosis of the colon with ischemic bowel. Status post colectomy with colostomy. Will defer the management to the surgery team. 4-Respiratory failure. extubated. On CO.
[2018-12-09 22:29] LABS: Hematocrit 27.8 % (40-54); Hemoglobin 8.9 g/dl (13.0-16.5)
[2018-12-10] VITALS (21 sets, daily range): BP systolic 137–155; BP diastolic 41–62; PULSE 70–95; RESP 14–24; TEMP 36.6–37.2; O2SAT 85–97
[2018-12-10] MEDS: 0.9% NaCl Peripheral Flush Adult/Peds IV ×9 (01:08→22:33)
[2018-12-10] MEDS: fentaNYL 100 MCG/2 ML Ampul 25 MCG IV ×2 (01:09→22:27)
[2018-12-10] MEDS: Ipratropium/Albuterol Sulfate 3 ML AMPUL.NEB INHALATION ×6 (03:40→23:25)
[2018-12-10 07:19] LABS: Absolute Lymphocyte Count 1.49 X10^3/ul (0.83-4.51); Absolute Neutrophil Count 11.6 X10^3/uL (2.0-7.7); Eosinophil# 0.06 X10^3/uL; Eosinophils% 0.4 % (0-5); Hemoglobin 8.7 g/dl (13.0-16.5); Lymphocyte # 1.49 X10^3/ul (4.0); Lymphocyte % 10.9 % (19-41); Mean Corp Hgb Conc 32.2 g/gl (32-36); Mean Corpuscular Hgb 30.9 pg (27.0-32.0); Mean Corpuscular Volume 95.7 fL (80-94); Mean Platelet Vol. 9.9 fl (6.2-12.0); Monocyte# 0.48 X10^3/uL; Monocyte% 3.5 % (0-10); POSITIVE COUNT NO; POSITIVE DIFFERENTIAL NO; POSITIVE MORPHOLOGY YES; Platelet Count 100 K/mm3 (150-450); RBC Distribution Width CV 19.5 % (11.6-14.6); Red Blood Count 2.82 M/mm3 (4.6-6.2); White Blood Count 13.7 K/mm3 (4.4-11.0)
[2018-12-10 07:20] LABS: Differential Indicated SCAN CRITERIA MET
--- NOTE | 2018-12-10 08:04 | PCM.PROGNOTE ---
Patient Problems: Active and Suspected Problems (Last Updated 12/08/18 @ 11:30 by Amadou Shane MD) Colonic ischemia (Acute) Subjective: Chief complaint: Follow-up after consultation for postoperative medical management. Patient seen and examined. No acute events overnight. He had no bowel movement, no flatus. He tolerated clear liquids, diet advanced to full liquid diet. Shortness of breath is stable. He has been afebrile, blood pressure and heart rate are stable, pulse ox is maintained on 2 L of oxygen. - Physical Exam General: Alert, Oriented x3, Cooperative, No apparent distress HEENT: Atraumatic, PERRLA, EOMI, Normocephalic Oral: Moist Mucosa, No Gingival or Mucosal Lesions/ Ulcerations Neck: Supple, No JVD, Negative Carotid Bruits, Trachea Midline, Thyroid Normal Size and Texture Lungs: Clear to auscultation, No rhonchi, No wheeze, No rales, Diminished Cardiovascular: Regular rate, Regular Rhythm, Normal S1, Normal S2, PMI Normal Abdomen: Bowel Sounds Present, Soft, Non-Distended, Tender Extremities: No clubbing, No cyanosis, Edema - Trace edema. Skin: No rashes, No breakdown Lymphatic: No Cervical, Supraclavicular, or Inguinal Adenopathy Neurological: Cranial nerves II-XII grossly intact, Neuro grossly intact Psych/Mental Status: Normal Affect, Appropriate, Alert and oriented to time, place, person, mood and affect Vital Signs Temp Pulse Resp BP Pulse Ox 98.7 F 90 24 H 143/52 H 92 12/10/18 03:32 12/10/18 06:57 12/10/18 03:40 12/10/18 03:32 12/10/18 03:32 Oxygen Flow Rate (L/min) 4 Oxygen Delivery Method Nasal Cannula Weight: 174 lb 9.698 oz Body Mass Index (BMI) 26.4 Finger Stick Blood Glucose 200 Intake and Output for Last 24 Hours 12/08/18 12/09/18 12/10/18 23:59 23:59 23:59 Intake Total 1719.7 / 1719.7 1515.4 / 1515.4 172.9 / 172.9 Output Total 3500 / 3500 895 / 895 200 / 200 Balance -1780.3 / -1780.3 620.4 / 620.4 -27.1 / -27.1 Laboratory Tests Past 24 Hrs 12/06/18 12/09/18 12/09/18 05:08 09:25 09:25 WBC RBC Hgb Hct MCV MCH MCHC RDW RDW Differential Plt Count MPV Immature Gran % (Auto) Neut % (Auto) Lymph % (Auto) [place] % (Auto) Eos % (Auto) Baso % (Auto) Absolute Neuts (auto) Absolute Lymphs (auto) Total Counted Blood Type A NEGATIVE Antibody Screen NEGATIVE Crossmatch See Detail See Detail See Detail 12/09/18 12/10/18 22:15 06:30 WBC 13.7 H RBC 2.82 L Hgb 8.9 L 8.7 L Hct 27.8 L 27.0 L MCV 95.7 H MCH 30.9 MCHC 32.2 RDW 19.5 H RDW Differential 66.0 H Plt Count 100 L MPV 9.9 Immature Gran % (Auto) 0.200 Neut % (Auto) 85.0 H Lymph % (Auto) 10.9 L [place] % (Auto) 3.5 Eos % (Auto) 0.4 Baso % (Auto) 0.0 Absolute Neuts (auto) 11.6 H Absolute Lymphs (auto) 1.49 Total Counted Not Reportable Blood Type Antibody Screen Crossmatch Medical Necessity - Tobacco Use Smoking Status: Current every day smoker Tobacco Use: Cigarettes Assessment/Plan All Active Problems (Last Updated 12/08/18 @ 11:30 by Amadou Shane MD) Hyperkalemia (Acute) Colonic ischemia (Acute) This is a 68 years old male patient presented to the emergency room because of abdominal pain, found to have ischemic colitis of the right and transverse colon, underwent exploratory laparotomy with resection of the right and transverse colon with creation of end ileostomy and his postoperative course complicated by acute on chronic respiratory failure status post extubation and probable septic shock secondary to ischemic colitis and I am seeing this patient in consultation for postoperative medical management. #1 ischemic colitis of the right and transverse colon: Status post exploratory laparotomy with resection of right and transverse colon, creation of end ileostomy. Postoperative day 4. He is tolerating full liquid diet. So far, no bowel movement, no flatus. Abdominal examination is benign. General surgery on the case. Plan to continue same treatment. #2 probable septic shock: Attributed to probably ischemic colitis as well as adrenal insufficiency as patient has been on long-term steroids. He is on maintenance dose of prednisone. Remained on IV Zosyn, today is day 4. Blood pressure is maintained. Plan to continue IV Zosyn for 5 days. #3 acute on chronic hypoxic respiratory failure: Status post extubation. He is maintaining his pulse ox on 2 L which is his baseline at home. Chest x-ray done depressive the and showed no acute changes. #4 acute on chronic anemia: Likely due to blood loss during surgery and hemodilution. Today, hemoglobin went down again to 8.7 grams per deciliter. No evidence of active bleeding. He received a total of 4 units of packed RBCs. Plan to repeat CBC tomorrow morning. #5 mild hyperkalemia: Yesterday's potassium is 5.2, he is on dialysis now. After dialysis, potassium normalized, yesterday's potassium is 4.1. #6 CAD status post CABG: Stable, no acute issues. He is on metoprolol. Plan to resume aspirin and Plavix as well as statins later. #7 chronic diastolic CHF: Clinically stable, compensated. He is only on metoprolol and dialysis. He is not on HEATHER inhibitors because of end-stage renal disease. #8 COPD/chronic respiratory failure: He is on oxygen at 2 L. At this time, pulse ox is 98% on 2 L. He is on bronchodilators and IV antibiotics. #9 ESRD on hemodialysis: On dialysis on Mondays, Wednesdays and Fridays, nephrology on the case. #10 hypertension: Blood pressure is under better control. He is on hydralazine and metoprolol, plan to monitor and control. #11 benign prostatic hypertrophy: Resume Flomax. #12 DVT prophylaxis: SCDs. This note was generated with [employer] software. It may contain incorrect words, spelling, and punctuation that were not noted in checking the note before signing. Code Visit Inpatient E&M: 06866 Subs Hosp L2
[2018-12-10] MEDS: oxyCODONE 5 MG Tablet 7.5 MG PO ×2 (08:36→19:03)
--- NOTE | 2018-12-10 08:52 | PCM.PN.SRG ---
Patient Problems: Active and Suspected Problems (Last Updated 12/08/18 @ 11:30 by Amadou Sahne MD) Colonic ischemia (Acute) Subjective: Patient states that he just does not have much of an appetite, denies any nausea or vomiting, positive stool per ileostomy no gross blood seen in bag - Physical Exam General: Alert, Oriented x3, Cooperative, No apparent distress Abdomen: Soft, Distended - Mild, Tender - Near incisions clean dry and intact with retention sutures and leslie and packed with wet-to-dry's, ileostomy pink with stool in bag no signs of any blood, mucous fistula pink, ecchymosis to the inferior area of the incision Vital Signs Temp Pulse Resp BP Pulse Ox 98.7 F 95 18 143/52 H 94 12/10/18 03:32 12/10/18 07:22 12/10/18 07:22 12/10/18 03:32 12/10/18 07:22 Oxygen Flow Rate (L/min) 5 Oxygen Delivery Method Nasal Cannula Weight: 174 lb 9.698 oz Body Mass Index (BMI) 26.4 Finger Stick Blood Glucose 200 Intake and Output for Last 24 Hours 12/08/18 12/09/18 12/10/18 23:59 23:59 23:59 Intake Total 1719.7 / 1719.7 1515.4 / 1515.4 172.9 / 172.9 Output Total 3500 / 3500 895 / 895 200 / 200 Balance -1780.3 / -1780.3 620.4 / 620.4 -27.1 / -27.1 Laboratory Tests Past 24 Hrs 12/06/18 12/09/18 12/09/18 05:08 09:25 09:25 WBC RBC Hgb Hct MCV MCH MCHC RDW RDW Differential Plt Count MPV Immature Gran % (Auto) Neut % (Auto) Lymph % (Auto) Sac % (Auto) Eos % (Auto) Baso % (Auto) Absolute Neuts (auto) Absolute Lymphs (auto) Total Counted Blood Type A NEGATIVE Antibody Screen NEGATIVE Crossmatch See Detail See Detail See Detail 12/09/18 12/10/18 22:15 06:30 WBC 13.7 H RBC 2.82 L Hgb 8.9 L 8.7 L Hct 27.8 L 27.0 L MCV 95.7 H MCH 30.9 MCHC 32.2 RDW 19.5 H RDW Differential 66.0 H Plt Count 100 L MPV 9.9 Immature Gran % (Auto) 0.200 Neut % (Auto) 85.0 H Lymph % (Auto) 10.9 L Sac % (Auto) 3.5 Eos % (Auto) 0.4 Baso % (Auto) 0.0 Absolute Neuts (auto) 11.6 H Absolute Lymphs (auto) 1.49 Total Counted Not Reportable Blood Type Antibody Screen Crossmatch Medical Necessity - Tobacco Use Smoking Status: Current every day smoker Tobacco Use: Cigarettes Assessment/Plan All Active Problems (Last Updated 12/08/18 @ 11:30 by Amadou Shane MD) Hyperkalemia (Acute) Colonic ischemia (Acute) 1. Continue full's patient was not interested in being advanced more currently did encourage nutritional drinks 2. Anemia?improved to 8.7 after 1 unit of packed red blood cells yesterday 3. Continue wound dressing with wet-to-dry's in between leslie. 4. Continue IV Protonix 5. End-stage renal disease on dialysis, appreciate nephrology's input, plan for dialysis tomorrow 6. Leukocytosis slight increased to 13 from 12.6, continue Zosyn IV Lizzie Tavares M.D. Pager: [phone] [facility] [address] [place] [address], [facility], [address] [place] [id number] Office: [phone]
--- NOTE | 2018-12-10 08:55 | PN.SURG_ITS ---
Patient Problems: Active and Suspected Problems (Last Updated 12/08/18 @ 11:30 by Amadou Shane MD) Colonic ischemia (Acute) Subjective: Patient states that he just does not have much of an appetite, denies any nausea or vomiting, positive stool per ileostomy no gross blood seen in bag - Physical Exam General: Alert, Oriented x3, Cooperative, No apparent distress Abdomen: Soft, Distended - Mild, Tender - Near incisions clean dry and intact with retention sutures and leslie and packed with wet-to-dry's, ileostomy pink with stool in bag no signs of any blood, mucous fistula pink, ecchymosis to the inferior area of the incision Vital Signs Temp Pulse Resp BP Pulse Ox 98.7 F 95 18 143/52 H 94 12/10/18 03:32 12/10/18 07:22 12/10/18 07:22 12/10/18 03:32 12/10/18 07:22 Oxygen Flow Rate (L/min) 5 Oxygen Delivery Method Nasal Cannula Weight: 174 lb 9.698 oz Body Mass Index (BMI) 26.4 Finger Stick Blood Glucose 200 Intake and Output for Last 24 Hours 12/08/18 12/09/18 12/10/18 23:59 23:59 23:59 Intake Total 1719.7 / 1719.7 1515.4 / 1515.4 172.9 / 172.9 Output Total 3500 / 3500 895 / 895 200 / 200 Balance -1780.3 / -1780.3 620.4 / 620.4 -27.1 / -27.1 Laboratory Tests Past 24 Hrs 12/06/18 12/09/18 12/09/18 05:08 09:25 09:25 WBC RBC Hgb Hct MCV MCH MCHC RDW RDW Differential Plt Count MPV Immature Gran % (Auto) Neut % (Auto) Lymph % (Auto) [place] % (Auto) Eos % (Auto) Baso % (Auto) Absolute Neuts (auto) Absolute Lymphs (auto) Total Counted Blood Type A NEGATIVE Antibody Screen NEGATIVE Crossmatch See Detail See Detail See Detail 12/09/18 12/10/18 22:15 06:30 WBC 13.7 H RBC 2.82 L Hgb 8.9 L 8.7 L Hct 27.8 L 27.0 L MCV 95.7 H MCH 30.9 MCHC 32.2 RDW 19.5 H RDW Differential 66.0 H Plt Count 100 L MPV 9.9 Immature Gran % (Auto) 0.200 Neut % (Auto) 85.0 H Lymph % (Auto) 10.9 L [place] % (Auto) 3.5 Eos % (Auto) 0.4 Baso % (Auto) 0.0 Absolute Neuts (auto) 11.6 H Absolute Lymphs (auto) 1.49 Total Counted Not Reportable Blood Type Antibody Screen Crossmatch Medical Necessity - Tobacco Use Smoking Status: Current every day smoker Tobacco Use: Cigarettes Assessment/Plan All Active Problems (Last Updated 12/08/18 @ 11:30 by Amadou Shane MD) Hyperkalemia (Acute) Colonic ischemia (Acute) 1. Continue full's patient was not interested in being advanced more currently did encourage nutritional drinks 2. Anemia?improved to 8.7 after 1 unit of packed red blood cells yesterday 3. Continue wound dressing with wet-to-dry's in between leslie. 4. Continue IV Protonix 5. End-stage renal disease on dialysis, appreciate nephrology's input, plan for dialysis tomorrow 6. Leukocytosis slight increased to 13 from 12.6, continue Zosyn IV Lizzie Tavares M.D. Pager: [phone] [facility] [address] [place] [address], [facility], [address] [place] [id number] Office: [phone]
[2018-12-10] MEDS: Metoprolol(XL)Succ 100 MG Tablet PO ×2 (09:22→22:46)
[2018-12-10] MEDS: predniSONE 10 MG Tablet PO (09:22)
[2018-12-10] MEDS: hydrALAZINE 25 MG Tablet PO ×2 (09:22→22:45)
[2018-12-10] MEDS: Tamsulosin HCl 0.4 MG Capsule 0.8 MG PO (09:24)
--- NOTE | 2018-12-10 10:05 | PCM.PROGNOTE ---
Patient Problems: Active and Suspected Problems (Last Updated 12/08/18 @ 11:30 by Amadou Shane MD) Colonic ischemia (Acute) Subjective: Patient did well overnight. Patient did receive 2 units packed red blood cells yesterday and reports some mild shortness of breath on exertion. Patient has noted some wheezing, but is still on baseline 4 L nasal cannula oxygen. Patient has been tolerating p.o. diet as written. Pain is well controlled. - Physical Exam General: Alert, Oriented x3, Cooperative, No apparent distress, - - Appears older than stated age. No conversational dyspnea. HEENT: Atraumatic, PERRLA, EOMI, Normocephalic, - - No scleral icterus or injection noted. Oral: Moist Mucosa, No Gingival or Mucosal Lesions/ Ulcerations, - - Fair dentition Neck: Supple, No Nodes, Trachea Midline, JVD, Right Lungs: No rhonchi, No rales, Diminished, Wheezes, - - Symmetric expansion. No dullness to percussion. Cardiovascular: Regular rate, Regular Rhythm, Normal S1, Normal S2, Murmur - Grade 2 out of 6 systolic ejection murmur at the right sternal border, No rub noted, No Gallop Abdomen: Bowel Sounds Present, Soft, Distended - Slightly, Tender - Only to palpation Extremities: No cyanosis, Clubbing, Edema Skin: - - No significant change compared to previous Musculoskeletal: No Tenderness to Palpation of Joints or Extremities Lymphatic: No Cervical, Supraclavicular, or Inguinal Adenopathy Neurological: Cranial nerves II-XII grossly intact, Neuro grossly intact, Motor Exam 5/5 strength throughout Psych/Mental Status: Alert and oriented to time, place, person, mood and affect Vital Signs Temp Pulse Resp BP Pulse Ox 37.2 C 92 16 151/43 H 94 12/10/18 09:16 12/10/18 09:22 12/10/18 09:16 12/10/18 09:22 12/10/18 09:16 Oxygen Flow Rate (L/min) 4.5 Oxygen Delivery Method Nasal Cannula Weight: 79.2 kg Body Mass Index (BMI) 26.4 Finger Stick Blood Glucose 200 Intake and Output for Last 24 Hours 12/08/18 12/09/18 12/10/18 23:59 23:59 23:59 Intake Total 1719.7 / 1719.7 1515.4 / 1515.4 172.9 / 172.9 Output Total 3500 / 3500 895 / 895 200 / 200 Balance -1780.3 / -1780.3 620.4 / 620.4 -27.1 / -27.1 Laboratory Tests Past 24 Hrs 12/06/18 12/09/18 12/09/18 05:08 09:25 09:25 WBC RBC Hgb Hct MCV MCH MCHC RDW RDW Differential Plt Count MPV Immature Gran % (Auto) Neut % (Auto) Lymph % (Auto) [place] % (Auto) Eos % (Auto) Baso % (Auto) Absolute Neuts (auto) Absolute Lymphs (auto) Total Counted Sodium Potassium Chloride Carbon Dioxide Anion Gap BUN Creatinine Est GFR (MDRD) Af Amer Est GFR (MDRD) Non-Af BUN/Creatinine Ratio Glucose Calcium Phosphorus Magnesium Blood Type A NEGATIVE Antibody Screen NEGATIVE Crossmatch See Detail See Detail See Detail 12/09/18 12/10/18 12/10/18 22:15 06:30 09:45 WBC 13.7 H RBC 2.82 L Hgb 8.9 L 8.7 L Hct 27.8 L 27.0 L MCV 95.7 H MCH 30.9 MCHC 32.2 RDW 19.5 H RDW Differential 66.0 H Plt Count 100 L MPV 9.9 Immature Gran % (Auto) 0.200 Neut % (Auto) 85.0 H Lymph % (Auto) 10.9 L [place] % (Auto) 3.5 Eos % (Auto) 0.4 Baso % (Auto) 0.0 Absolute Neuts (auto) 11.6 H Absolute Lymphs (auto) 1.49 Total Counted Not Reportable Sodium Pending Potassium Pending Chloride Pending Carbon Dioxide Pending Anion Gap Pending BUN Pending Creatinine Pending Est GFR (MDRD) Af Amer Pending Est GFR (MDRD) Non-Af Pending BUN/Creatinine Ratio Pending Glucose Pending Calcium Pending Phosphorus Pending Magnesium Pending Blood Type Antibody Screen Crossmatch Medical Necessity - Tobacco Use Smoking Status: Current every day smoker Tobacco Use: Cigarettes Assessment/Plan All Active Problems (Last Updated 12/08/18 @ 11:30 by Amadou Shane MD) Hyperkalemia (Acute) Colonic ischemia (Acute) RECOMMENDATIONS: 1. She will likely require hemodialysis tomorrow for fluid removal 2. Continue baseline blood pressure medications 3. Increase activity as tolerated 4. Continue pain control 5. Monitor volume status closely IMPRESSIONS: 1. Septic shock/relative adrenal insufficiency secondary to ischemic colitis Patient has been doing well from a blood pressure standpoint. Patient now currently hypertensive. Tolerating 10 mg of prednisone well. Patient remains on IV antibiotics. This will likely be continued for 5-7 days. Clinical suspicion for translocation through ischemic bowel. Blood pressure has been doing well. 2. Acute respiratory failure secondary to ischemic colitis/presumed COPD Patient successfully extubated. Patient on his baseline nasal cannula oxygen. Okay to continue with bronchodilators. Continue to follow closely. Encourage incentive spirometer and activity as tolerated. Patient does have some wheezing on exam today that may be secondary to increased fluid intake yesterday. 3. Embolic ischemic colitis status post resection postop day #4 Surgery is currently following. Patient appears to be significantly overloaded at this time. Will need to follow closely. Patient's ostomy appears to be functioning well at this point. Surgery following. 4. Chronic diastolic congestive heart failure Patient with multiple admissions in the past secondary to congestive heart failure complicated by end-stage renal disease. Home medical therapy will be held for now given acute condition. Patient will need volume removal with hemodialysis. 5. Peripheral artery disease/hypertension/hyperlipidemia/end-stage renal disease/anemia of chronic disease Complicates care, management, recovery and prognosis. Renal has been consulted for hemodialysis. Blood pressure medication should be held secondary to acute condition. 6. Anemia Unclear etiology at this time. Patient may have had an element of hemoconcentration on presentation, but does not appear to be acutely losing blood at this time. Has received 4 units of packed red blood cells during this hospitalization. Code Visit Inpatient E&M: 21139 Subs Hosp L2
[2018-12-10 10:16] LABS: Anion Gap 18 (5-15); BUN 62 mg/dL (7-18); BUN/Creat Ratio 10.8 RATIO (10-20); Chloride 98 mmol/L (98-107); Creatinine, Serum 5.75 mg/dL (0.70-1.30); EST Glomerular Filtration Rate 11 mL/min (>60); Est Glom Filt Rate - Afr Amer 13 mL/min (>60); Estimated Creatinine Clearance 12.06 ml/min; Glucose 97 mg/dL (74-106); Magnesium 2.2 mg/dL (1.6-2.6); Phosphorus 6.5 mg/dL (2.5-4.9); Potassium 4.2 mmol/L (3.5-5.1); Sodium Level 136 mmol/L (136-145)
--- NOTE | 2018-12-10 11:47 | PCM.PN.REN ---
Patient Problems: Active and Suspected Problems (Last Updated 12/08/18 @ 11:30 by Amadou Shane MD) Colonic ischemia (Acute) Subjective: no new events - Physical Exam General: Alert, Oriented x3, Cooperative HEENT: Atraumatic, PERRLA, EOMI, Normocephalic Neck: Supple, No JVD, Negative Carotid Bruits Lungs: Clear to auscultation, Normal air movement Cardiovascular: Regular rate, No murmurs Abdomen: Bowel Sounds Present, Soft, Non Tender Extremities: No edema, Capillary Refill Less than 3 Seconds Skin: No rashes, No breakdown Musculoskeletal: No Tenderness to Palpation of Joints or Extremities Neurological: Cranial nerves II-XII grossly intact Psych/Mental Status: Normal Affect, Appropriate Vital Signs Temp Pulse Resp BP Pulse Ox 98.9 F 94 16 151/43 H 94 12/10/18 09:16 12/10/18 11:00 12/10/18 10:29 12/10/18 09:22 12/10/18 09:16 Oxygen Flow Rate (L/min) 4.5 Oxygen Delivery Method Nasal Cannula Weight: 79.2 kg Body Mass Index (BMI) 26.4 Finger Stick Blood Glucose 200 Intake and Output for Last 24 Hours 12/08/18 12/09/18 12/10/18 23:59 23:59 23:59 Intake Total 1719.7 / 1719.7 1515.4 / 1515.4 172.9 / 172.9 Output Total 3500 / 3500 895 / 895 200 / 200 Balance -1780.3 / -1780.3 620.4 / 620.4 -27.1 / -27.1 Laboratory Tests Past 24 Hrs 12/06/18 12/09/18 12/09/18 05:08 09:25 09:25 WBC RBC Hgb Hct MCV MCH MCHC RDW RDW Differential Plt Count MPV Immature Gran % (Auto) Neut % (Auto) Lymph % (Auto) [place] % (Auto) Eos % (Auto) Baso % (Auto) Absolute Neuts (auto) Absolute Lymphs (auto) Total Counted Sodium Potassium Chloride Carbon Dioxide Anion Gap BUN Creatinine Estim Creat Clear Calc Est GFR (MDRD) Af Amer Est GFR (MDRD) Non-Af BUN/Creatinine Ratio Glucose Calcium Phosphorus Magnesium Blood Type A NEGATIVE Antibody Screen NEGATIVE Crossmatch See Detail See Detail See Detail 12/09/18 12/10/18 12/10/18 22:15 06:30 09:45 WBC 13.7 H RBC 2.82 L Hgb 8.9 L 8.7 L Hct 27.8 L 27.0 L MCV 95.7 H MCH 30.9 MCHC 32.2 RDW 19.5 H RDW Differential 66.0 H Plt Count 100 L MPV 9.9 Immature Gran % (Auto) 0.200 Neut % (Auto) 85.0 H Lymph % (Auto) 10.9 L [place] % (Auto) 3.5 Eos % (Auto) 0.4 Baso % (Auto) 0.0 Absolute Neuts (auto) 11.6 H Absolute Lymphs (auto) 1.49 Total Counted Not Reportable Sodium 136 Potassium 4.2 Chloride 98 Carbon Dioxide 20.0 L Anion Gap 18 H BUN 62 H Creatinine 5.75 H Estim Creat Clear Calc 12.06 Est GFR (MDRD) Af Amer 13 L Est GFR (MDRD) Non-Af 11 L BUN/Creatinine Ratio 10.8 Glucose 97 Calcium 8.0 L Phosphorus 6.5 H Magnesium 2.2 Blood Type Antibody Screen Crossmatch Medical Necessity - Tobacco Use Smoking Status: Current every day smoker Tobacco Use: Cigarettes Assessment/Plan All Active Problems (Last Updated 12/08/18 @ 11:30 by Amadou Shane MD) Hyperkalemia (Acute) Colonic ischemia (Acute) 1-End-stage renal disease on Tuesday hemodialysis schedule. Patient goes to [facility]. HD tomorrow 2-anemia: Patient received 1 unit of RBCs 3-pneumatosis of the colon with ischemic bowel. Status post colectomy with colostomy. Will defer the management to the surgery team.
--- NOTE | 2018-12-10 15:36 | CPS ---
pt placed back on O2 at 5 lpm
[2018-12-10] MEDS: Atorvastatin Calcium 80 MG Tablet PO (22:45)
[2018-12-10] MEDS: Pramipexole Di-HCl 0.5 MG Tablet PO (22:45)
[2018-12-11] VITALS (21 sets, daily range): BP systolic 142–149; BP diastolic 40–76; PULSE 68–101; RESP 15–20; TEMP 36.6–36.9; O2SAT 93–99
[2018-12-11] MEDS: Ipratropium/Albuterol Sulfate 3 ML AMPUL.NEB INHALATION ×6 (03:55→23:27)
[2018-12-11] MEDS: 0.9% NaCl Peripheral Flush Adult/Peds IV ×3 (04:59→22:01)
[2018-12-11 06:22] LABS: Absolute Lymphocyte Count 0.53 X10^3/ul (0.83-4.51); Absolute Neutrophil Count 9.2 X10^3/uL (2.0-7.7); Basophil# 0.01 X10^3/uL; Basophil% 0.1 % (0-1); Eosinophil# 0.11 X10^3/uL; Hematocrit 25.1 % (40-54); Hemoglobin 8.2 g/dl (13.0-16.5); Lymphocyte # 0.53 X10^3/ul (4.0); Lymphocyte % 4.7 % (19-41); Mean Corp Hgb Conc 32.7 g/gl (32-36); Mean Corpuscular Hgb 32.2 pg (27.0-32.0); Mean Corpuscular Volume 98.4 fL (80-94); Mean Platelet Vol. 10.8 fl (6.2-12.0); Monocyte# 1.32 X10^3/uL; Monocyte% 11.8 % (0-10); Neutrophil # 9.15 X10^3/uL (2.7-7.7); Platelet Count 91 K/mm3 (150-450); RBC Distribution Width CV 18.5 % (11.6-14.6); Red Blood Count 2.55 M/mm3 (4.6-6.2); White Blood Count 11.2 K/mm3 (4.4-11.0)
[2018-12-11 06:23] LABS: Differential Indicated SCAN CRITERIA MET; POSITIVE COUNT NO; POSITIVE DIFFERENTIAL YES; POSITIVE MORPHOLOGY NO
[2018-12-11 06:41] LABS: Anion Gap 18 (5-15); BUN 78 mg/dL (7-18); BUN/Creat Ratio 10.9 RATIO (10-20); Chloride 98 mmol/L (98-107); Creatinine, Serum 7.18 mg/dL (0.70-1.30); EST Glomerular Filtration Rate 8 mL/min (>60); Est Glom Filt Rate - Afr Amer 10 mL/min (>60); Estimated Creatinine Clearance 9.66 ml/min; Glucose 111 mg/dL (74-106); Magnesium 2.2 mg/dL (1.6-2.6); Potassium 4.3 mmol/L (3.5-5.1); Sodium Level 136 mmol/L (136-145)
[2018-12-11 06:43] LABS: Phosphorus 6.7 mg/dL (2.5-4.9)
--- NOTE | 2018-12-11 07:07 | EKG12_ITS ---
Test Reason : RHYTHM CHANGES Blood Pressure : / mmHG Vent. Rate : 084 BPM Atrial Rate : 084 BPM P-R Int : 202 ms QRS Dur : 090 ms QT Int : 386 ms P-R-T Axes : 040 058 157 degrees QTc Int : 456 ms Normal sinus rhythm ST & T wave abnormality, consider lateral ischemia Abnormal ECG Confirmed by VIKY MONTENEGRO, JOS ([id number]), editorial intern JAVON GONZALEZ ([id number]) on 12/14/2018 3:57:58 PM Referred By: Armen Henderson Confirmed By:JOS SALMON MD
[2018-12-11] MEDS: Tamsulosin HCl 0.4 MG Capsule 0.8 MG PO (07:55)
[2018-12-11] MEDS: predniSONE 10 MG Tablet PO (07:55)
--- NOTE | 2018-12-11 09:10 | PCM.PN.SRG ---
Patient Problems: Active and Suspected Problems (Last Updated 12/08/18 @ 11:30 by Amadou Shane MD) Colonic ischemia (Acute) Subjective: ana PO, +ileostomy output, dialysis today - Physical Exam General: Alert, Oriented x3, Cooperative, No apparent distress Abdomen: Soft, Non-Distended, Tender - near incision, incision w retention suture with leslie, sanguineous drainage on ABD, but no active oozing/bleeding, ileostomy-pink+stool, mucus fistula-pink, ecchymosis to lower abd and right abdomen. Vital Signs Temp Pulse Resp BP Pulse Ox 98.4 F 95 15 146/70 H 94 12/11/18 04:36 12/11/18 07:00 12/11/18 04:36 12/11/18 04:36 12/11/18 08:44 Oxygen Flow Rate (L/min) 3.5 Oxygen Delivery Method Nasal Cannula Weight: 177 lb 4.026 oz Body Mass Index (BMI) 26.4 Finger Stick Blood Glucose 200 Intake and Output for Last 24 Hours 12/09/18 12/10/18 12/11/18 23:59 23:59 23:59 Intake Total 1515.4 / 1515.4 1024.9 / 1024.9 62.2 / 62.2 Output Total 895 / 895 700 / 700 500 / 500 Balance 620.4 / 620.4 324.9 / 324.9 -437.8 / -437.8 Laboratory Tests Past 24 Hrs 12/10/18 12/11/18 12/11/18 09:45 05:50 05:50 WBC 11.2 H RBC 2.55 L Hgb 8.2 L Hct 25.1 L MCV 98.4 H MCH 32.2 H MCHC 32.7 RDW 18.5 H RDW Differential 63.0 H Plt Count 91 L MPV 10.8 Immature Gran % (Auto) 0.400 Neut % (Auto) 82.0 H Lymph % (Auto) 4.7 L Sac % (Auto) 11.8 H Eos % (Auto) 1.0 Baso % (Auto) 0.1 Absolute Neuts (auto) 9.2 H Absolute Lymphs (auto) 0.53 L Total Counted Not Reportable Sodium 136 136 Potassium 4.2 4.3 Chloride 98 98 Carbon Dioxide 20.0 L 20.0 L Anion Gap 18 H 18 H BUN 62 H 78 H Creatinine 5.75 H 7.18 H Estim Creat Clear Calc 12.06 9.66 Est GFR (MDRD) Af Amer 13 L 10 L Est GFR (MDRD) Non-Af 11 L 8 L BUN/Creatinine Ratio 10.8 10.9 Glucose 97 111 H Calcium 8.0 L 8.0 L Phosphorus 6.5 H Magnesium 2.2 2.2 12/11/18 05:50 WBC RBC Hgb Hct MCV MCH MCHC RDW RDW Differential Plt Count MPV Immature Gran % (Auto) Neut % (Auto) Lymph % (Auto) Sac % (Auto) Eos % (Auto) Baso % (Auto) Absolute Neuts (auto) Absolute Lymphs (auto) Total Counted Sodium Potassium Chloride Carbon Dioxide Anion Gap BUN Creatinine Estim Creat Clear Calc Est GFR (MDRD) Af Amer Est GFR (MDRD) Non-Af BUN/Creatinine Ratio Glucose Calcium Phosphorus 6.7 H Magnesium Medical Necessity - Tobacco Use Smoking Status: Current every day smoker Tobacco Use: Cigarettes Assessment/Plan All Active Problems (Last Updated 12/08/18 @ 11:30 by Amadou Shane MD) Hyperkalemia (Acute) Colonic ischemia (Acute) 1. on renal diet 2. Anemia?8.2 3. Continue wound dressing with wet-to-dry's in between leslie. 4. Continue IV Protonix 5. End-stage renal disease on dialysis, appreciate nephrology's input, dialysis 6. Leukocytosis slight improved to 11.2 Lizzie Tavares M.D. Pager: [phone] [facility] [address] [place] [address], [facility], [address] [place] [id number] Office: [phone]
--- NOTE | 2018-12-11 09:15 | PN.SURG_ITS ---
Patient Problems: Active and Suspected Problems (Last Updated 12/08/18 @ 11:30 by Amadou Shane MD) Colonic ischemia (Acute) Subjective: ana PO, +ileostomy output, dialysis today - Physical Exam General: Alert, Oriented x3, Cooperative, No apparent distress Abdomen: Soft, Non-Distended, Tender - near incision, incision w retention suture with leslie, sanguineous drainage on ABD, but no active oozing/bleeding, ileostomy-pink+stool, mucus fistula-pink, ecchymosis to lower abd and right abdomen. Vital Signs Temp Pulse Resp BP Pulse Ox 98.4 F 95 15 146/70 H 94 12/11/18 04:36 12/11/18 07:00 12/11/18 04:36 12/11/18 04:36 12/11/18 08:44 Oxygen Flow Rate (L/min) 3.5 Oxygen Delivery Method Nasal Cannula Weight: 177 lb 4.026 oz Body Mass Index (BMI) 26.4 Finger Stick Blood Glucose 200 Intake and Output for Last 24 Hours 12/09/18 12/10/18 12/11/18 23:59 23:59 23:59 Intake Total 1515.4 / 1515.4 1024.9 / 1024.9 62.2 / 62.2 Output Total 895 / 895 700 / 700 500 / 500 Balance 620.4 / 620.4 324.9 / 324.9 -437.8 / -437.8 Laboratory Tests Past 24 Hrs 12/10/18 12/11/18 12/11/18 09:45 05:50 05:50 WBC 11.2 H RBC 2.55 L Hgb 8.2 L Hct 25.1 L MCV 98.4 H MCH 32.2 H MCHC 32.7 RDW 18.5 H RDW Differential 63.0 H Plt Count 91 L MPV 10.8 Immature Gran % (Auto) 0.400 Neut % (Auto) 82.0 H Lymph % (Auto) 4.7 L [place] % (Auto) 11.8 H Eos % (Auto) 1.0 Baso % (Auto) 0.1 Absolute Neuts (auto) 9.2 H Absolute Lymphs (auto) 0.53 L Total Counted Not Reportable Sodium 136 136 Potassium 4.2 4.3 Chloride 98 98 Carbon Dioxide 20.0 L 20.0 L Anion Gap 18 H 18 H BUN 62 H 78 H Creatinine 5.75 H 7.18 H Estim Creat Clear Calc 12.06 9.66 Est GFR (MDRD) Af Amer 13 L 10 L Est GFR (MDRD) Non-Af 11 L 8 L BUN/Creatinine Ratio 10.8 10.9 Glucose 97 111 H Calcium 8.0 L 8.0 L Phosphorus 6.5 H Magnesium 2.2 2.2 12/11/18 05:50 WBC RBC Hgb Hct MCV MCH MCHC RDW RDW Differential Plt Count MPV Immature Gran % (Auto) Neut % (Auto) Lymph % (Auto) [place] % (Auto) Eos % (Auto) Baso % (Auto) Absolute Neuts (auto) Absolute Lymphs (auto) Total Counted Sodium Potassium Chloride Carbon Dioxide Anion Gap BUN Creatinine Estim Creat Clear Calc Est GFR (MDRD) Af Amer Est GFR (MDRD) Non-Af BUN/Creatinine Ratio Glucose Calcium Phosphorus 6.7 H Magnesium Medical Necessity - Tobacco Use Smoking Status: Current every day smoker Tobacco Use: Cigarettes Assessment/Plan All Active Problems (Last Updated 12/08/18 @ 11:30 by Amadou Shane MD) Hyperkalemia (Acute) Colonic ischemia (Acute) 1. on renal diet 2. Anemia?8.2 3. Continue wound dressing with wet-to-dry's in between leslie. 4. Continue IV Protonix 5. End-stage renal disease on dialysis, appreciate nephrology's input, dialysis 6. Leukocytosis slight improved to 11.2 Lizzie Tavares M.D. Pager: [phone] [facility] [address] [place] [address], [facility], [address] [place] [id number] Office: [phone]
[2018-12-11 12:09] LABS: Pathologist Review Reviewed
--- NOTE | 2018-12-11 12:51 | PCM.PN.HOSP ---
Patient Problems: Active and Suspected Problems (Last Updated 12/08/18 @ 11:30 by Amadou Shane MD) Colonic ischemia (Acute) Subjective: Patient is a 68-year-old gentleman with multiple comorbidities including end-stage renal disease on hemodialysis who presented with abdominal pain. An assessment of acute ischemic colitis involving the right and transverse colon made patient admitted to the surgical service underwent exploratory laparotomy resection of the right and transverse colon with creation of an end colostomy. Patient subsequently went into acute respiratory failure resulting in intubation. Patient has since been weaned off the vent stabilized and transferred to progressive care unit. Objective: ENERAL; Cooperative HEENT: Atraumatic; moist oral mucosa EYES; Anicteric, Normal Conjunctiva NECK; supple, normal thyroid, distended JVD. RESPIRATORY: Diminished to auscultation bilaterally, CARDIOVASCULAR: Regular S1 S2, GI: soft, colostomy bag right lower quadrant : No Renal angle tenderness; EXTREMITIES: Trace edema, no clubbing, no cyanosis. MUSCULOSKELETAL: No Joint Tenderness; NEURO: Awake; no lateralizing signs. SKIN: Areas of ecchymosis on upper extremities PSYCH; flat affect Vitals/I&O's: Vital Signs Temp Pulse Resp BP Pulse Ox 98.4 F 91 20 H 142/65 H 94 12/11/18 10:36 12/11/18 11:01 12/11/18 10:36 12/11/18 10:36 12/11/18 10:36 Oxygen Flow Rate (L/min) 3.5 Oxygen Delivery Method Nasal Cannula Weight: 80.4 kg Body Mass Index (BMI) 26.4 Finger Stick Blood Glucose 200 Intake and Output for Last 24 Hours 12/09/18 12/10/18 12/11/18 23:59 23:59 23:59 Intake Total 1515.4 / 1515.4 1024.9 / 1024.9 62.2 / 62.2 Output Total 895 / 895 700 / 700 500 / 500 Balance 620.4 / 620.4 324.9 / 324.9 -437.8 / -437.8 Laboratory Results 12/09/18 04:30: Diff Path Review Reviewed 12/11/18 05:50: WBC 11.2 H, RBC 2.55 L, Hgb 8.2 L, Hct 25.1 L, MCV 98.4 H, MCH 32.2 H, MCHC 32.7, RDW 18.5 H, RDW Differential 63.0 H, Plt Count 91 L, MPV 10.8, Immature Gran % (Auto) 0.400, Neut % (Auto) 82.0 H, Lymph % (Auto) 4.7 L, [place] % (Auto) 11.8 H, Eos % (Auto) 1.0, Baso % (Auto) 0.1, Absolute Neuts (auto) 9.2 H, Absolute Lymphs (auto) 0.53 L, Total Counted Not Reportable 12/11/18 05:50: Sodium 136, Potassium 4.3, Chloride 98, Carbon Dioxide 20.0 L, Anion Gap 18 H, BUN 78 H, Creatinine 7.18 H, Estim Creat Clear Calc 9.66, Est GFR (MDRD) Af Amer 10 L, Est GFR (MDRD) Non-Af 8 L, BUN/Creatinine Ratio 10.9, Glucose 111 H, Calcium 8.0 L, Magnesium 2.2 12/11/18 05:50: Phosphorus 6.7 H Current Medications Acetaminophen (Tylenol Liquid) 650 mg GT Q4H PRN PRN PRN Reason: Fever >101 Last Admin: 12/07/18 16:42 Dose: 650 mg Albuterol Sulfate (Ventolin Aerosols) 2.5 mg INHALATION Q2H PRN PRN PRN Reason: SOB &/OR WHEEZING Albuterol/Ipratropium (Duoneb) 3 ml INHALATION Q4H.RT [facility] Last Admin: 12/11/18 11:11 Dose: 3 ml Alprazolam (Xanax) 0.5 mg PO TID PRN PRN Reason: ANXIETY Atorvastatin Calcium (Lipitor) 80 mg PO QHS [facility] Last Admin: 12/10/18 22:45 Dose: 80 mg Fentanyl Citrate (Sublimaze (100mcg Ampule)) 25 mcg IV Q2H PRN PRN PRN Reason: PAIN Last Admin: 12/10/18 22:27 Dose: 25 mcg Hydralazine HCl (Apresoline) 25 mg PO BID [facility] Last Admin: 12/10/18 22:45 Dose: 25 mg Famotidine 20 mg/ Sodium (Chloride) 10 mls @ 300 mls/hr IV Q24 [facility] Last Admin: 12/10/18 09:09 Dose: 300 mls/hr Sodium Chloride () 250 mls @ 15 mls/hr IV .[id number] PRN PRN Reason: SALINE FLUSH Sodium Chloride () 250 mls @ 15 mls/hr IV .[id number] PRN PRN Reason: SALINE FLUSH Piperacillin Sod/Tazobactam (Sod 3.375 gm/ Sodium Chloride) 50 mls @ 12.5 mls/hr IV Q12 [facility] Last Admin: 12/10/18 23:15 Dose: 12.5 mls/hr Pantoprazole Sodium 40 mg/ (Sodium Chloride) 110 mls @ 330 mls/hr IV Q12 [facility] Last Admin: 12/10/18 22:36 Dose: 330 mls/hr Metoprolol Succinate (Toprol Xl (Beta Kadi)) 100 mg PO BID [facility] Last Admin: 12/10/18 22:46 Dose: 100 mg Non-Formulary Medication (Ferric Citrate [Auryxia]) 210 mg PO BID [facility] Nutritional Formula (Lactose Free) (Ensure Enlive) 120 ml PO 4X/DAY [facility] Last Admin: 12/10/18 22:46 Dose: 120 ml Oxycodone HCl (Oxyir) 7.5 mg PO Q6H PRN PRN PRN Reason: SEVERE PAIN (6-10/10) Last Admin: 12/10/18 19:03 Dose: 7.5 mg Pramipexole Dihydrochloride (Mirapex) 0.5 mg PO QHS [facility] Last Admin: 12/10/18 22:45 Dose: 0.5 mg Prednisone () 10 mg PO DAILY@0800 [facility] Last Admin: 12/11/18 07:55 Dose: 10 mg Sodium Chloride () 5 - 15 ml IV UD PRN PRN Reason: SALINE FLUSH Last Admin: 12/11/18 04:59 Dose: 10 ml Tamsulosin HCl (Flomax) 0.8 mg PO DAILY@0830 [facility] Last Admin: 12/11/18 07:55 Dose: 0.8 mg Medical Necessity - Tobacco Use Smoking Status: Current every day smoker Tobacco Use: Cigarettes Assessment/Plan All Active Problems (Last Updated 12/08/18 @ 11:30 by Amadou Shane MD) Hyperkalemia (Acute) Colonic ischemia (Acute) Patient is a 68-year-old gentleman with multiple comorbidities including end-stage renal disease on hemodialysis who presented with abdominal pain. An assessment of acute ischemic colitis involving the right and transverse colon made patient admitted to the surgical service underwent exploratory laparotomy resection of the right and transverse colon with creation of an end colostomy. Patient subsequently went into acute respiratory failure resulting in intubation. Patient has since been weaned off the vent stabilized and transferred to progressive care unit. 1. Acute ischemic colitis involving the right and transverse colon ; status post Exploratory laparotomy with resection of right and transverse colon. 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 Septic shock attributed to patient's ischemic colitis management protocol in the ICU with IV fluid resuscitation broad-spectrum antibiotic as well as stress doses of steroids 3. Acute on chronic hypoxic respiratory failure following surgery patient was managed on the vent and subsequently weaned off and transferred to the progressive care unit 4. Anemia secondary to acute blood loss anemia following surgery patient has received a total of 4 units PRBC 5. Chronic diastolic congestive heart failure: Echo on 04/08/2018 demonstrated features consistent with diastolic dysfunction with an EF of 55%; 6. CAD with previous CABG with subsequent stent placement patient is on Plavix as well as statin therapy 7. 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 Dyslipidemia-patient is on statin therapy, continued at home dose 9. COPD; nebs prn 10. Pulmonary hypertension with RSVP of 42 mmHg 11. Depression with anxiety patient is on SSRI as well as Xanax as needed 12. BPH, status post chronic Charles catheter 13. Hypertension-blood pressure controlled, home medications continued with dose adjustment as needed 14. DVT prophylaxis SCDs; Avoided Heparin in view of low platelet counts Active Medications Acetaminophen (Tylenol Liquid) 650 mg GT Q4H PRN PRN PRN Reason: Fever >101 Last Admin: 12/07/18 16:42 Dose: 650 mg Albuterol Sulfate (Ventolin Aerosols) 2.5 mg INHALATION Q2H PRN PRN PRN Reason: SOB &/OR WHEEZING Albuterol/Ipratropium (Duoneb) 3 ml INHALATION Q4H.RT [facility] Last Admin: 12/11/18 11:11 Dose: 3 ml Alprazolam (Xanax) 0.5 mg PO TID PRN PRN Reason: ANXIETY Atorvastatin Calcium (Lipitor) 80 mg PO QHS [facility] Last Admin: 12/10/18 22:45 Dose: 80 mg Fentanyl Citrate (Sublimaze (100mcg Ampule)) 25 mcg IV Q2H PRN PRN PRN Reason: PAIN Last Admin: 12/10/18 22:27 Dose: 25 mcg Hydralazine HCl (Apresoline) 25 mg PO BID [facility] Last Admin: 12/10/18 22:45 Dose: 25 mg Famotidine 20 mg/ Sodium (Chloride) 10 mls @ 300 mls/hr IV Q24 [facility] Last Admin: 12/10/18 09:09 Dose: 300 mls/hr Sodium Chloride () 250 mls @ 15 mls/hr IV .[id number] PRN PRN Reason: SALINE FLUSH Sodium Chloride () 250 mls @ 15 mls/hr IV .[id number] PRN PRN Reason: SALINE FLUSH Piperacillin Sod/Tazobactam (Sod 3.375 gm/ Sodium Chloride) 50 mls @ 12.5 mls/hr IV Q12 [facility] Last Admin: 12/10/18 23:15 Dose: 12.5 mls/hr Pantoprazole Sodium 40 mg/ (Sodium Chloride) 110 mls @ 330 mls/hr IV Q12 [facility] Last Admin: 12/10/18 22:36 Dose: 330 mls/hr Metoprolol Succinate (Toprol Xl (Beta Kadi)) 100 mg PO BID [facility] Last Admin: 12/10/18 22:46 Dose: 100 mg Non-Formulary Medication (Ferric Citrate [Auryxia]) 210 mg PO BID [facility] Nutritional Formula (Lactose Free) (Ensure Enlive) 120 ml PO 4X/DAY [facility] Last Admin: 12/10/18 22:46 Dose: 120 ml Oxycodone HCl (Oxyir) 7.5 mg PO Q6H PRN PRN PRN Reason: SEVERE PAIN (6-10/10) Last Admin: 12/10/18 19:03 Dose: 7.5 mg Pramipexole Dihydrochloride (Mirapex) 0.5 mg PO QHS [facility] Last Admin: 12/10/18 22:45 Dose: 0.5 mg Prednisone () 10 mg PO DAILY@0800 [facility] Last Admin: 12/11/18 07:55 Dose: 10 mg Sodium Chloride () 5 - 15 ml IV UD PRN PRN Reason: SALINE FLUSH Last Admin: 12/11/18 04:59 Dose: 10 ml Tamsulosin HCl (Flomax) 0.8 mg PO DAILY@0830 [facility] Last Admin: 12/11/18 07:55 Dose: 0.8 mg Code Visit Inpatient E&M: 07807 Subs Hosp L3
--- NOTE | 2018-12-11 13:37 | NURSING ---
wound photo: abdomen
[2018-12-11] MEDS: hydrALAZINE 25 MG Tablet PO ×2 (13:50→21:37)
--- NOTE | 2018-12-11 13:50 | PCM.PN.BLA ---
Progress Note seen on dialysis today access if RIJ TDC left arm AVF still has good bruit but had a significant infiltrate see orders/flowsheets weight is way different from outside weight try for 3-4 L today all questions answered
--- NOTE | 2018-12-11 14:51 | PCM.PROGNOTE ---
Patient Problems: Active and Suspected Problems (Last Updated 12/08/18 @ 11:30 by Amadou Shane MD) Colonic ischemia (Acute) Subjective: The patient was seen and examined at the bedside this morning. Events from the last 24 hours have been reviewed. The patient is currently afebrile, hemodynamically stable and maintaining appropriate oxygen saturations on 3 L/min via nasal cannula. The patient is overall net +1.8 L for the admission. No complaints of pain were noted. Objective: The patient's most recent lab work, culture data and imaging studies have all been personally reviewed. - Physical Exam General: Alert, Cooperative, No apparent distress HEENT: Atraumatic, PERRLA, Normocephalic Oral: No Gingival or Mucosal Lesions/ Ulcerations Neck: Supple, No Nodes, Trachea Midline Lungs: No rhonchi, No wheeze, No rales, Diminished Cardiovascular: Regular rate, Regular Rhythm, Normal S1, Normal S2, Murmur Abdomen: Bowel Sounds Present, Soft Extremities: No clubbing, No cyanosis, Edema Skin: - - No significant change from previous. Musculoskeletal: No Tenderness to Palpation of Joints or Extremities Lymphatic: No Cervical, Supraclavicular, or Inguinal Adenopathy Neurological: Neuro grossly intact Psych/Mental Status: Normal Affect, Appropriate Vital Signs Temp Pulse Resp BP Pulse Ox 36.9 C 80 16 142/65 H 94 12/11/18 10:36 12/11/18 13:50 12/11/18 11:11 12/11/18 10:36 12/11/18 10:36 Oxygen Flow Rate (L/min) 3.5 Oxygen Delivery Method Nasal Cannula Weight: 177 lb 4.026 oz Body Mass Index (BMI) 26.4 Finger Stick Blood Glucose 200 Intake and Output for Last 24 Hours 12/09/18 12/10/18 12/11/18 23:59 23:59 23:59 Intake Total 1515.4 / 1515.4 1024.9 / 1024.9 62.2 / 62.2 Output Total 895 / 895 700 / 700 500 / 500 Balance 620.4 / 620.4 324.9 / 324.9 -437.8 / -437.8 Laboratory Tests Past 24 Hrs 12/09/18 12/11/18 12/11/18 04:30 05:50 05:50 WBC 11.2 H RBC 2.55 L Hgb 8.2 L Hct 25.1 L MCV 98.4 H MCH 32.2 H MCHC 32.7 RDW 18.5 H RDW Differential 63.0 H Plt Count 91 L MPV 10.8 Immature Gran % (Auto) 0.400 Neut % (Auto) 82.0 H Lymph % (Auto) 4.7 L [place] % (Auto) 11.8 H Eos % (Auto) 1.0 Baso % (Auto) 0.1 Absolute Neuts (auto) 9.2 H Absolute Lymphs (auto) 0.53 L Total Counted Not Reportable Diff Path Review Reviewed Sodium 136 Potassium 4.3 Chloride 98 Carbon Dioxide 20.0 L Anion Gap 18 H BUN 78 H Creatinine 7.18 H Estim Creat Clear Calc 9.66 Est GFR (MDRD) Af Amer 10 L Est GFR (MDRD) Non-Af 8 L BUN/Creatinine Ratio 10.9 Glucose 111 H Calcium 8.0 L Phosphorus Magnesium 2.2 12/11/18 05:50 WBC RBC Hgb Hct MCV MCH MCHC RDW RDW Differential Plt Count MPV Immature Gran % (Auto) Neut % (Auto) Lymph % (Auto) [place] % (Auto) Eos % (Auto) Baso % (Auto) Absolute Neuts (auto) Absolute Lymphs (auto) Total Counted Diff Path Review Sodium Potassium Chloride Carbon Dioxide Anion Gap BUN Creatinine Estim Creat Clear Calc Est GFR (MDRD) Af Amer Est GFR (MDRD) Non-Af BUN/Creatinine Ratio Glucose Calcium Phosphorus 6.7 H Magnesium Clinical Impression(s) from Imaging Studies Chest X-Ray 12/06/18 01:23 IMPRESSION: 1. Worsening congestive heart failure. 2. Stable small left pleural effusion. Electronically Signed: Robert García MD at 2:31 EST Tel , Service support , Abdomen/Pelvis CT 12/06/18 01:36 IMPRESSION: 1. Pneumatosis of the cecum and descending colon with extensive portal venous gas throughout the mesenteric venous channels and into the periphery of the liver parenchyma. 2. Bibasilar airspace infiltration, either representing confluent dependent edema or bibasilar pneumonia. 3. Trace bilateral pleural effusions. 4. Left renal atrophy 5. Simple appearing cyst off of the lateral midpole of the left kidney. Electronically Signed: Robert García MD at 2:41 EST Tel , Service support , ADDENDUM: 12/06/18 0253 IMPRESSION: 1. Pneumatosis of the cecum and descending colon with extensive portal venous gas throughout the mesenteric venous channels and into the periphery of the liver parenchyma. 2. Bibasilar airspace infiltration, either representing confluent dependent edema or bibasilar pneumonia. 3. Trace bilateral pleural effusions. 4. Left renal atrophy 5. Simple appearing cyst off of the lateral midpole of the left kidney. N.B. : The above information has been verbally conveyed by Robert García MD to Andreia Jeffery MD, MD, on 12/06/2018 02:45:55 (ET). Electronically Signed: Robert García MD at 2:41 EST Tel , Service support , Chest X-Ray 12/06/18 08:29 IMPRESSION: The tip of the endotracheal tube is at 6.5 sinus proximal to the iliana. The tip of the nasogastric tube is in the body of the stomach just distal to the gastroesophageal junction. Left basilar atelectasis and/or infiltrate with small left effusion. Central vascular congestion. Electronically Signed: Deven Hensley MD at 9:46 EST , Service support , Chest X-Ray 12/06/18 11:12 IMPRESSION: Placement of left IJ central venous catheter as above. No pneumothorax. Remainder is essentially unchanged Electronically Signed: Salas Mancia DO at 12:49 EST Tel , Service support , KUB X-Ray 12/07/18 06:27 IMPRESSION: 1. The NG tube tip lies at the GE junction and should be advanced. 2. No bowel obstruction. Chronic changes, as above. ADDENDUM: Repeat supine abdomen 12/07/2018 Repeat supine view of the abdomen was obtained following advancement of the NG tube placing the tip within the stomach lumen. Abdominal findings are otherwise unchanged. Extensive atherosclerotic calcifications. No bowel obstruction. ADDENDUM IMPRESSION: Follow-up exam shows satisfactory position of the NG tube tip within the stomach. at 0714 Reported and signed by: Asif Gannon MD Electronically Signed: Asif Gannon, at 7:13 EST Tel , Service support , KUB X-Ray 12/07/18 06:47 IMPRESSION: The tip of the orogastric tube is in the body of the stomach. Electronically Signed: Deven Hensley MD at 9:08 EST , Service support , Medical Necessity - Tobacco Use Smoking Status: Current every day smoker Tobacco Use: Cigarettes Assessment/Plan All Active Problems (Last Updated 12/08/18 @ 11:30 by Amadou Shane MD) Hyperkalemia (Acute) Colonic ischemia (Acute) RECOMMENDATIONS: 1. Continue bronchodilators as ordered. 2. Wean supplemental oxygen as tolerated. 3. Encourage incentive parameter use and mobilize patient as tolerated. IMPRESSIONS: 1. Septic shock/relative adrenal insufficiency secondary to ischemic colitis The patient has improved clinically and hemodynamics remained stable. Would plan to continue antibiotics and prednisone as ordered. 2. Acute respiratory failure secondary to ischemic colitis/presumed COPD Continue baseline supplemental oxygen as ordered. Continue scheduled bronchodilators. Continue to encourage incentive spirometer use and mobilize patient as tolerated. 3. 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 Patient's ostomy appears to be functioning well at this point. 4. Chronic diastolic congestive heart failure Continue attempts at volume optimization with hemodialysis. 5. Peripheral artery disease/hypertension/hyperlipidemia/end-stage renal disease/anemia of chronic disease/anemia Complicates care, management, recovery and prognosis. Renal has been consulted for hemodialysis. This note was generated with Dragon dictation software. It may contain incorrect words, spelling, and punctuation that were not noted in checking the note before signing. DISPOSITION: Given the patient's lack of ongoing ICU needs, will sign off. Please call with any additional questions. Code Visit Inpatient E&M: 43708 Subs Hosp L2
--- NOTE | 2018-12-11 14:57 | PN_ITS ---
Patient Problems: Active and Suspected Problems (Last Updated 12/08/18 @ 11:30 by Amadou Shane MD) Colonic ischemia (Acute) Subjective: The patient was seen and examined at the bedside this morning. Events from the last 24 hours have been reviewed. The patient is currently afebrile, hemodynamically stable and maintaining appropriate oxygen saturations on 3 L/min via nasal cannula. The patient is overall net +1.8 L for the admission. No complaints of pain were noted. Objective: The patient's most recent lab work, culture data and imaging studies have all been personally reviewed. - Physical Exam General: Alert, Cooperative, No apparent distress HEENT: Atraumatic, PERRLA, Normocephalic Oral: No Gingival or Mucosal Lesions/ Ulcerations Neck: Supple, No Nodes, Trachea Midline Lungs: No rhonchi, No wheeze, No rales, Diminished Cardiovascular: Regular rate, Regular Rhythm, Normal S1, Normal S2, Murmur Abdomen: Bowel Sounds Present, Soft Extremities: No clubbing, No cyanosis, Edema Skin: - - No significant change from previous. Musculoskeletal: No Tenderness to Palpation of Joints or Extremities Lymphatic: No Cervical, Supraclavicular, or Inguinal Adenopathy Neurological: Neuro grossly intact Psych/Mental Status: Normal Affect, Appropriate Vital Signs Temp Pulse Resp BP Pulse Ox 36.9 C 80 16 142/65 H 94 12/11/18 10:36 12/11/18 13:50 12/11/18 11:11 12/11/18 10:36 12/11/18 10:36 Oxygen Flow Rate (L/min) 3.5 Oxygen Delivery Method Nasal Cannula Weight: 177 lb 4.026 oz Body Mass Index (BMI) 26.4 Finger Stick Blood Glucose 200 Intake and Output for Last 24 Hours 12/09/18 12/10/18 12/11/18 23:59 23:59 23:59 Intake Total 1515.4 / 1515.4 1024.9 / 1024.9 62.2 / 62.2 Output Total 895 / 895 700 / 700 500 / 500 Balance 620.4 / 620.4 324.9 / 324.9 -437.8 / -437.8 Laboratory Tests Past 24 Hrs 12/09/18 12/11/18 12/11/18 04:30 05:50 05:50 WBC 11.2 H RBC 2.55 L Hgb 8.2 L Hct 25.1 L MCV 98.4 H MCH 32.2 H MCHC 32.7 RDW 18.5 H RDW Differential 63.0 H Plt Count 91 L MPV 10.8 Immature Gran % (Auto) 0.400 Neut % (Auto) 82.0 H Lymph % (Auto) 4.7 L [place] % (Auto) 11.8 H Eos % (Auto) 1.0 Baso % (Auto) 0.1 Absolute Neuts (auto) 9.2 H Absolute Lymphs (auto) 0.53 L Total Counted Not Reportable Diff Path Review Reviewed Sodium 136 Potassium 4.3 Chloride 98 Carbon Dioxide 20.0 L Anion Gap 18 H BUN 78 H Creatinine 7.18 H Estim Creat Clear Calc 9.66 Est GFR (MDRD) Af Amer 10 L Est GFR (MDRD) Non-Af 8 L BUN/Creatinine Ratio 10.9 Glucose 111 H Calcium 8.0 L Phosphorus Magnesium 2.2 12/11/18 05:50 WBC RBC Hgb Hct MCV MCH MCHC RDW RDW Differential Plt Count MPV Immature Gran % (Auto) Neut % (Auto) Lymph % (Auto) [place] % (Auto) Eos % (Auto) Baso % (Auto) Absolute Neuts (auto) Absolute Lymphs (auto) Total Counted Diff Path Review Sodium Potassium Chloride Carbon Dioxide Anion Gap BUN Creatinine Estim Creat Clear Calc Est GFR (MDRD) Af Amer Est GFR (MDRD) Non-Af BUN/Creatinine Ratio Glucose Calcium Phosphorus 6.7 H Magnesium Clinical Impression(s) from Imaging Studies Chest X-Ray 12/06/18 01:23 IMPRESSION: 1. Worsening congestive heart failure. 2. Stable small left pleural effusion. Electronically Signed: Robert García MD at 2:31 EST Tel , Service support , Abdomen/Pelvis CT 12/06/18 01:36 IMPRESSION: 1. Pneumatosis of the cecum and descending colon with extensive portal venous gas throughout the mesenteric venous channels and into the periphery of the liver parenchyma. 2. Bibasilar airspace infiltration, either representing confluent dependent edema or bibasilar pneumonia. 3. Trace bilateral pleural effusions. 4. Left renal atrophy 5. Simple appearing cyst off of the lateral midpole of the left kidney. Electronically Signed: Robert García MD at 2:41 EST Tel , Service support , ADDENDUM: 12/06/18 0253 IMPRESSION: 1. Pneumatosis of the cecum and descending colon with extensive portal venous gas throughout the mesenteric venous channels and into the periphery of the liver parenchyma. 2. Bibasilar airspace infiltration, either representing confluent dependent edema or bibasilar pneumonia. 3. Trace bilateral pleural effusions. 4. Left renal atrophy 5. Simple appearing cyst off of the lateral midpole of the left kidney. N.B. : The above information has been verbally conveyed by Robert García MD to Andreia Jeffery MD, MD, on 12/06/2018 02:45:55 (ET). Electronically Signed: Robert García MD at 2:41 EST Tel , Service support , Chest X-Ray 12/06/18 08:29 IMPRESSION: The tip of the endotracheal tube is at 6.5 sinus proximal to the iliana. The tip of the nasogastric tube is in the body of the stomach just distal to the gastroesophageal junction. Left basilar atelectasis and/or infiltrate with small left effusion. Central vascular congestion. Electronically Signed: Deven Hensley MD at 9:46 EST , Service support , Chest X-Ray 12/06/18 11:12 IMPRESSION: Placement of left IJ central venous catheter as above. No pneumothorax. Remainder is essentially unchanged Electronically Signed: Salas Mancia DO at 12:49 EST Tel , Service support , KUB X-Ray 12/07/18 06:27 IMPRESSION: 1. The NG tube tip lies at the GE junction and should be advanced. 2. No bowel obstruction. Chronic changes, as above. ADDENDUM: Repeat supine abdomen 12/07/2018 Repeat supine view of the abdomen was obtained following advancement of the NG tube placing the tip within the stomach lumen. Abdominal findings are otherwise unchanged. Extensive atherosclerotic calcifications. No bowel obstruction. ADDENDUM IMPRESSION: Follow-up exam shows satisfactory position of the NG tube tip within the stomach. at 0714 Reported and signed by: Asif Gannon MD Electronically Signed: Asif Gannon, at 7:13 EST Tel , Service support , KUB X-Ray 12/07/18 06:47 IMPRESSION: The tip of the orogastric tube is in the body of the stomach. Electronically Signed: Deven Hensley MD at 9:08 EST , Service support , Medical Necessity - Tobacco Use Smoking Status: Current every day smoker Tobacco Use: Cigarettes Assessment/Plan All Active Problems (Last Updated 12/08/18 @ 11:30 by Amadou Shane MD) Hyperkalemia (Acute) Colonic ischemia (Acute) RECOMMENDATIONS: 1. Continue bronchodilators as ordered. 2. Wean supplemental oxygen as tolerated. 3. Encourage incentive parameter use and mobilize patient as tolerated. IMPRESSIONS: 1. Septic shock/relative adrenal insufficiency secondary to ischemic colitis The patient has improved clinically and hemodynamics remained stable. Would plan to continue antibiotics and prednisone as ordered. 2. Acute respiratory failure secondary to ischemic colitis/presumed COPD Continue baseline supplemental oxygen as ordered. Continue scheduled bronchodilators. Continue to encourage incentive spirometer use and mobilize patient as tolerated. 3. 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 Patient's ostomy appears to be functioning well at this point. 4. Chronic diastolic congestive heart failure Continue attempts at volume optimization with hemodialysis. 5. Peripheral artery disease/hypertension/hyperlipidemia/end-stage renal disease/anemia of chronic disease/anemia Complicates care, management, recovery and prognosis. Renal has been consulted for hemodialysis. This note was generated with Dragon dictation software. It may contain incorrect words, spelling, and punctuation that were not noted in checking the note before signing. DISPOSITION: Given the patient's lack of ongoing ICU needs, will sign off. Please call with any additional questions. Code Visit Inpatient E&M: 45950 Subs Hosp L2
[2018-12-11] MEDS: oxyCODONE 5 MG Tablet 7.5 MG PO (20:41)
[2018-12-11] MEDS: Atorvastatin Calcium 80 MG Tablet PO (21:37)
[2018-12-11] MEDS: ALPRAZolam 0.5 MG Tablet PO (21:37)
[2018-12-11] MEDS: Pramipexole Di-HCl 0.5 MG Tablet PO (21:38)
[2018-12-11] MEDS: Metoprolol(XL)Succ 100 MG Tablet PO (21:38)
[2018-12-12] VITALS (10 sets, daily range): BP systolic 146–149; BP diastolic 44–49; PULSE 70–88; RESP 16–20; TEMP 36.6–36.8; O2SAT 90–97
[2018-12-12] MEDS: Ipratropium/Albuterol Sulfate 3 ML AMPUL.NEB INHALATION ×3 (02:55→11:30)
[2018-12-12] MEDS: oxyCODONE 5 MG Tablet 7.5 MG PO (03:08)
[2018-12-12] MEDS: 0.9% NaCl Peripheral Flush Adult/Peds IV ×4 (03:10→05:37)
[2018-12-12 05:50] LABS: Hematocrit 27.2 % (40-54); Hemoglobin 8.5 g/dl (13.0-16.5)
--- NOTE | 2018-12-12 07:13 | NURSING ---
Late entry from 12/11/18 1445: removed ileostomy appliance. present in room to again observe an appliance change. stoma is beefy red, slightly budded, and viable. stoma measures approx 1 1/4 and is oval in shape. peristomal skin is intact, just ecchymotic. no excoriation noted. cleansed peristomal skin with warm water and pat dry. since stoma is not real budded, will try a convex appliance and see how patient does with this. abdomen is rounded, but soft. applied a 2 piece Padmini convex appliance with a small amount of stoma paste. Pt tolerated well. denies questions. still denies need for Home Health even after encouraging her to have them available just for a week or so. still denies need. states I feel comfortable doing it. will let [employer] know this as well.
[2018-12-12] MEDS: predniSONE 10 MG Tablet PO (07:39)
[2018-12-12] MEDS: Tamsulosin HCl 0.4 MG Capsule 0.8 MG PO (07:40)
--- NOTE | 2018-12-12 09:35 | PCM.PN.HOSP ---
Patient Problems: Active and Suspected Problems (Last Updated 12/08/18 @ 11:30 by Amadou Shane MD) Colonic ischemia (Acute) Subjective: Patient seen had a relatively uneventful night Case discussed with Dr. Sow with general surgery plan is for patient to be discharged home today Objective: GENERAL; Cooperative HEENT: Atraumatic; moist oral mucosa EYES; Anicteric, Normal Conjunctiva NECK; supple, normal thyroid, distended JVD. RESPIRATORY: Diminished to auscultation bilaterally, CARDIOVASCULAR: Regular S1 S2, GI: soft, colostomy bag right lower quadrant : No Renal angle tenderness; EXTREMITIES: Trace edema, no clubbing, no cyanosis. MUSCULOSKELETAL: No Joint Tenderness; NEURO: Awake; no lateralizing signs. SKIN: Areas of ecchymosis on upper extremities PSYCH; flat affect Vitals/I&O's: Vital Signs Temp Pulse Resp BP Pulse Ox 97.9 F 80 16 146/49 H 90 12/12/18 03:30 12/12/18 07:24 12/12/18 07:24 12/12/18 03:30 12/12/18 07:24 Oxygen Flow Rate (L/min) 2 Oxygen Delivery Method Nasal Cannula Weight: 77.3 kg Body Mass Index (BMI) 26.4 Finger Stick Blood Glucose 200 Intake and Output for Last 24 Hours 12/10/18 12/11/18 12/12/18 23:59 23:59 23:59 Intake Total 1024.9 / 1024.9 639.1 / 639.1 54.8 / 54.8 Output Total 700 / 700 4000 / 4000 200 / 200 Balance 324.9 / 324.9 -3360.9 / -3360.9 -145.2 / -145.2 Laboratory Results 12/09/18 04:30: Diff Path Review Reviewed 12/12/18 05:40: Hgb 8.5 L, Hct 27.2 L 12/12/18 05:40: WBC Pending, RBC Pending, Hgb Pending, Hct Pending, MCV Pending, MCH Pending, MCHC Pending, RDW Pending, RDW Differential Pending, Plt Count Pending, Neut % (Auto) Pending, Absolute Neuts (auto) Pending, Total Counted Pending Current Medications Acetaminophen (Tylenol Liquid) 650 mg GT Q4H PRN PRN PRN Reason: Fever >101 Last Admin: 12/07/18 16:42 Dose: 650 mg Albuterol Sulfate (Ventolin Aerosols) 2.5 mg INHALATION Q2H PRN PRN PRN Reason: SOB &/OR WHEEZING Albuterol/Ipratropium (Duoneb) 3 ml INHALATION Q4H.RT [facility] Last Admin: 12/12/18 07:24 Dose: 3 ml Alprazolam (Xanax) 0.5 mg PO TID PRN PRN Reason: ANXIETY Last Admin: 12/11/18 21:37 Dose: 0.5 mg Aspirin (Aspirin, Baby) 81 mg PO DAILY@0800 [facility] Atorvastatin Calcium (Lipitor) 80 mg PO QHS [facility] Last Admin: 12/11/18 21:37 Dose: 80 mg Calcium Acetate (Phoslo Gel Cap) 1,334 mg PO TIDCM [facility] Last Admin: 12/12/18 07:41 Dose: Not Given Famotidine (Pepcid) 20 mg PO DAILY [facility] Fentanyl Citrate (Sublimaze (100mcg Ampule)) 25 mcg IV Q2H PRN PRN PRN Reason: PAIN Last Admin: 12/10/18 22:27 Dose: 25 mcg Hydralazine HCl (Apresoline) 25 mg PO BID [facility] Last Admin: 12/11/18 21:37 Dose: 25 mg Sodium Chloride () 250 mls @ 15 mls/hr IV .[id number] PRN PRN Reason: SALINE FLUSH Sodium Chloride () 250 mls @ 15 mls/hr IV .[id number] PRN PRN Reason: SALINE FLUSH Piperacillin Sod/Tazobactam (Sod 3.375 gm/ Sodium Chloride) 50 mls @ 12.5 mls/hr IV Q12 [facility] Last Admin: 12/11/18 21:42 Dose: 12.5 mls/hr Metoprolol Succinate (Toprol Xl (Beta Kadi)) 100 mg PO BID [facility] Last Admin: 12/11/18 21:38 Dose: 100 mg Oxycodone HCl (Oxyir) 7.5 mg PO Q6H PRN PRN PRN Reason: SEVERE PAIN (6-10/10) Last Admin: 12/12/18 03:08 Dose: 7.5 mg Pantoprazole Sodium (Protonix) 40 mg PO DAILY [facility] Pramipexole Dihydrochloride (Mirapex) 0.5 mg PO QHS [facility] Last Admin: 12/11/18 21:38 Dose: 0.5 mg Prednisone () 10 mg PO DAILY@0800 [facility] Last Admin: 12/12/18 07:39 Dose: 10 mg Sodium Chloride () 5 - 15 ml IV UD PRN PRN Reason: SALINE FLUSH Last Admin: 12/12/18 05:37 Dose: 10 ml Tamsulosin HCl (Flomax) 0.8 mg PO DAILY@0830 [facility] Last Admin: 12/12/18 07:40 Dose: 0.8 mg Medical Necessity - Tobacco Use Smoking Status: Current every day smoker Tobacco Use: Cigarettes Assessment/Plan All Active Problems (Last Updated 12/08/18 @ 11:30 by Amadou Shane MD) Hyperkalemia (Acute) Colonic ischemia (Acute) Patient is a 68-year-old gentleman with multiple comorbidities including end-stage renal disease on hemodialysis who presented with abdominal pain. An assessment of acute ischemic colitis involving the right and transverse colon made patient admitted to the surgical service underwent exploratory laparotomy resection of the right and transverse colon with creation of an end colostomy. Patient subsequently went into acute respiratory failure resulting in intubation. Patient has since been weaned off the vent stabilized and transferred to progressive care unit. 1. Acute ischemic colitis involving the right and transverse colon ; status post Exploratory laparotomy with resection of right and transverse colon. 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 Sow on 12/12/2018 with plans for patient to be discharged home 2. Septic shock attributed to patient's ischemic colitis management protocol in the ICU with IV fluid resuscitation broad-spectrum antibiotic as well as stress doses of steroids 3. Acute on chronic hypoxic respiratory failure following surgery patient was managed on the vent and subsequently weaned off and transferred to the progressive care unit 4. Anemia secondary to acute blood loss anemia following surgery patient has received a total of 4 units PRBC 5. Chronic diastolic congestive heart failure: Echo on 04/08/2018 demonstrated features consistent with diastolic dysfunction with an EF of 55%; 6. CAD with previous CABG with subsequent stent placement patient is on Plavix as well as statin therapy 7. 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 Dyslipidemia-patient is on statin therapy, continued at home dose 9. COPD; nebs prn 10. Pulmonary hypertension with RSVP of 42 mmHg 11. Depression with anxiety patient is on SSRI as well as Xanax as needed 12. BPH, status post chronic Charles catheter 13. Hypertension-blood pressure controlled, home medications continued with dose adjustment as needed 14. DVT prophylaxis SCDs; Avoided Heparin in view of low platelet counts Code Visit Inpatient E&M: 64563 Subs Hosp L2
--- NOTE | 2018-12-12 09:39 | DCINST_ITS ---
Discharge Diet: Renal Diet Discharge Activity: May not drive while taking narcotic pain medications., May Shower Lifting Restrictions: no lifting >20 lbs Call your doctor if your incision/area has: Continuous Slow Oozing, Sudden Increased Bleeding, Increased Pain/ Swelling, Increased Redness, Foul Smelling Discharge, Swelling at the incision site Call your doctor if you observe: Fever of 101 or Higher Change Dressing in (Days):: 1 - change dressing daily and PRN Cleanse incision/area with: Normal Saline Allergies/Adverse Reactions: Allergies irbesartan [From Avapro] Allergy (Severe, Verified 12/06/18 01:12) Blisters zolpidem [From Ambien] Adverse Reaction (Severe, Verified 12/06/18 01:12) made me go crazy, memory loss Medications to take at Discharge Albuterol Sulfate 2.5 mg IH Q4H PRN 11/13/18 Alprazolam [Xanax] 0.5 mg PO TID PRN 11/13/18 Aspirin E.C. [Ecotrin] 81 mg PO DAILY@0800 11/13/18 Ferric Citrate [Auryxia] 210 mg PO BID 11/13/18 Prednisone 10 mg PO DAILY 11/13/18 Ropinirole HCl [Requip] 1 mg PO QHS 11/13/18 Rosuvastatin Calcium [Crestor] 40 mg PO QHS 11/13/18 Tamsulosin HCl [Flomax] 0.8 mg PO DAILY 11/13/18 hydrALAZINE [Apresoline] 25 mg PO BID 11/13/18 Metoprolol(XL)Succ [Toprol Xl (Beta Kadi)] 100 mg PO BID 12/06/18 Amoxicillin/Potassium Clav [Augmentin 500-125 Tablet] 1 each PO DAILY #5 tablet 12/12/18 Oxycodone [Oxyir] 5 - 10 mg PO Q4H PRN PRN 5 Days #30 tablet 12/12/18 The following prescriptions were given: Oxycodone [Oxyir] 5 - 10 mg PO Q4H PRN PRN 5 Days #30 tablet PRN Reason: Pain Amoxicillin/Potassium Clav [Augmentin 500-125 Tablet] 1 each PO DAILY #5 tablet Primary Care Physician: Tania Berger NP-C [Primary Care Provider] - Test Results: Test results from this visit will be discussed in further detail at your follow- up appointment, if applicable. Please Follow Up With: Armen Henderson MD - after 5pm/weekends call [phone] with any concerns When: call office for f/u in 1 week Proposed Discharge Date: 12/12/18
--- NOTE | 2018-12-12 09:39 | PCM.PN.SRG ---
Patient Problems: Active and Suspected Problems (Last Updated 12/08/18 @ 11:30 by Amadou Shane MD) Colonic ischemia (Acute) Subjective: Patient tolerating renal diet, no nausea or vomiting, positive output from ileostomy, WBC pending, patient tolerated dialysis yesterday well and back to his 2 L nasal cannula - Physical Exam General: Alert, Oriented x3, Cooperative, No apparent distress Cardiovascular: Regular rate Abdomen: Soft, Non-Distended, Tender - Incision clean dry and intact with retention sutures/leslie/wet-to-dry packing, ileostomy pink with stool output, mucous fistula pink, abdomen purplish ecchymosis, dressing abdominal wound with sanguinous drainage however no active drainage from wound. Vital Signs Temp Pulse Resp BP Pulse Ox 97.9 F 80 16 146/49 H 90 12/12/18 03:30 12/12/18 07:24 12/12/18 07:24 12/12/18 03:30 12/12/18 07:24 Oxygen Flow Rate (L/min) 2 Oxygen Delivery Method Nasal Cannula Weight: 170 lb 6.677 oz Body Mass Index (BMI) 26.4 Finger Stick Blood Glucose 200 Intake and Output for Last 24 Hours 12/10/18 12/11/18 12/12/18 23:59 23:59 23:59 Intake Total 1024.9 / 1024.9 639.1 / 639.1 54.8 / 54.8 Output Total 700 / 700 4000 / 4000 200 / 200 Balance 324.9 / 324.9 -3360.9 / -3360.9 -145.2 / -145.2 Laboratory Tests Past 24 Hrs 12/09/18 12/12/18 12/12/18 04:30 05:40 05:40 WBC Pending RBC Pending Hgb 8.5 L Pending Hct 27.2 L Pending MCV Pending MCH Pending MCHC Pending RDW Pending RDW Differential Pending Plt Count Pending Neut % (Auto) Pending Absolute Neuts (auto) Pending Total Counted Pending Diff Path Review Reviewed Medical Necessity - Tobacco Use Smoking Status: Current every day smoker Tobacco Use: Cigarettes Assessment/Plan All Active Problems (Last Updated 12/08/18 @ 11:30 by Amadou Shane MD) Hyperkalemia (Acute) Colonic ischemia (Acute) 1. on renal diet 2. Anemia?8.5 3. Continue wound dressing with wet-to-dry's in between leslie. 4. Continue po Protonix 5. End-stage renal disease on dialysis, appreciate nephrology's input 6. Leukocytosis slight improved to 11.2, pending--if improved will d/c home on augmentin 7. Peripheral vascular disease, CAD we will place patient back on his baby aspirin and hold the Plavix until follow-up due to the sanguinous drainage from wound 8. Continue wound changes, if d/c will f/u w Dr. Henderson in 1 week. Lizzie Tavares M.D. Pager: [phone] [facility] [address] [place] [address], [facility], [address] [place] [id number] Office: [phone]
--- NOTE | 2018-12-12 09:40 | PN_ITS ---
Patient Problems: Active and Suspected Problems (Last Updated 12/08/18 @ 11:30 by Amadou Shane MD) Colonic ischemia (Acute) Subjective: Patient seen had a relatively uneventful night Case discussed with Dr. Sow with general surgery plan is for patient to be discharged home today Objective: GENERAL; Cooperative HEENT: Atraumatic; moist oral mucosa EYES; Anicteric, Normal Conjunctiva NECK; supple, normal thyroid, distended JVD. RESPIRATORY: Diminished to auscultation bilaterally, CARDIOVASCULAR: Regular S1 S2, GI: soft, colostomy bag right lower quadrant : No Renal angle tenderness; EXTREMITIES: Trace edema, no clubbing, no cyanosis. MUSCULOSKELETAL: No Joint Tenderness; NEURO: Awake; no lateralizing signs. SKIN: Areas of ecchymosis on upper extremities PSYCH; flat affect Vitals/I&O's: Vital Signs Temp Pulse Resp BP Pulse Ox 97.9 F 80 16 146/49 H 90 12/12/18 03:30 12/12/18 07:24 12/12/18 07:24 12/12/18 03:30 12/12/18 07:24 Oxygen Flow Rate (L/min) 2 Oxygen Delivery Method Nasal Cannula Weight: 77.3 kg Body Mass Index (BMI) 26.4 Finger Stick Blood Glucose 200 Intake and Output for Last 24 Hours 12/10/18 12/11/18 12/12/18 23:59 23:59 23:59 Intake Total 1024.9 / 1024.9 639.1 / 639.1 54.8 / 54.8 Output Total 700 / 700 4000 / 4000 200 / 200 Balance 324.9 / 324.9 -3360.9 / -3360.9 -145.2 / -145.2 Laboratory Results 12/09/18 04:30: Diff Path Review Reviewed 12/12/18 05:40: Hgb 8.5 L, Hct 27.2 L 12/12/18 05:40: WBC Pending, RBC Pending, Hgb Pending, Hct Pending, MCV Pending, MCH Pending, MCHC Pending, RDW Pending, RDW Differential Pending, Plt Count Pending, Neut % (Auto) Pending, Absolute Neuts (auto) Pending, Total Counted Pending Current Medications Acetaminophen (Tylenol Liquid) 650 mg GT Q4H PRN PRN PRN Reason: Fever >101 Last Admin: 12/07/18 16:42 Dose: 650 mg Albuterol Sulfate (Ventolin Aerosols) 2.5 mg INHALATION Q2H PRN PRN PRN Reason: SOB &/OR WHEEZING Albuterol/Ipratropium (Duoneb) 3 ml INHALATION Q4H.RT [facility] Last Admin: 12/12/18 07:24 Dose: 3 ml Alprazolam (Xanax) 0.5 mg PO TID PRN PRN Reason: ANXIETY Last Admin: 12/11/18 21:37 Dose: 0.5 mg Aspirin (Aspirin, Baby) 81 mg PO DAILY@0800 [facility] Atorvastatin Calcium (Lipitor) 80 mg PO QHS [facility] Last Admin: 12/11/18 21:37 Dose: 80 mg Calcium Acetate (Phoslo Gel Cap) 1,334 mg PO TIDCM [facility] Last Admin: 12/12/18 07:41 Dose: Not Given Famotidine (Pepcid) 20 mg PO DAILY [facility] Fentanyl Citrate (Sublimaze (100mcg Ampule)) 25 mcg IV Q2H PRN PRN PRN Reason: PAIN Last Admin: 12/10/18 22:27 Dose: 25 mcg Hydralazine HCl (Apresoline) 25 mg PO BID [facility] Last Admin: 12/11/18 21:37 Dose: 25 mg Sodium Chloride () 250 mls @ 15 mls/hr IV .[id number] PRN PRN Reason: SALINE FLUSH Sodium Chloride () 250 mls @ 15 mls/hr IV .[id number] PRN PRN Reason: SALINE FLUSH Piperacillin Sod/Tazobactam (Sod 3.375 gm/ Sodium Chloride) 50 mls @ 12.5 mls/hr IV Q12 [facility] Last Admin: 12/11/18 21:42 Dose: 12.5 mls/hr Metoprolol Succinate (Toprol Xl (Beta Kadi)) 100 mg PO BID [facility] Last Admin: 12/11/18 21:38 Dose: 100 mg Oxycodone HCl (Oxyir) 7.5 mg PO Q6H PRN PRN PRN Reason: SEVERE PAIN (6-10/10) Last Admin: 12/12/18 03:08 Dose: 7.5 mg Pantoprazole Sodium (Protonix) 40 mg PO DAILY [facility] Pramipexole Dihydrochloride (Mirapex) 0.5 mg PO QHS [facility] Last Admin: 12/11/18 21:38 Dose: 0.5 mg Prednisone () 10 mg PO DAILY@0800 [facility] Last Admin: 12/12/18 07:39 Dose: 10 mg Sodium Chloride () 5 - 15 ml IV UD PRN PRN Reason: SALINE FLUSH Last Admin: 12/12/18 05:37 Dose: 10 ml Tamsulosin HCl (Flomax) 0.8 mg PO DAILY@0830 [facility] Last Admin: 12/12/18 07:40 Dose: 0.8 mg Medical Necessity - Tobacco Use Smoking Status: Current every day smoker Tobacco Use: Cigarettes Assessment/Plan All Active Problems (Last Updated 12/08/18 @ 11:30 by Amadou Shane MD) Hyperkalemia (Acute) Colonic ischemia (Acute) Patient is a 68-year-old gentleman with multiple comorbidities including end- stage renal disease on hemodialysis who presented with abdominal pain. An assessment of acute ischemic colitis involving the right and transverse colon made patient admitted to the surgical service underwent exploratory laparotomy resection of the right and transverse colon with creation of an end colostomy. Patient subsequently went into acute respiratory failure resulting in intubation. Patient has since been weaned off the vent stabilized and tra nsferred to progressive care unit. 1. Acute ischemic colitis involving the right and transverse colon ; status post Exploratory laparotomy with resection of right and transverse colon. 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 Sow on 12/12/2018 with plans for patient to be discharged home 2. Septic shock attributed to patient's ischemic colitis management protocol in the ICU with IV fluid resuscitation broad-spectrum antibiotic as well as stress doses of steroids 3. Acute on chronic hypoxic respiratory failure following surgery patient was managed on the vent and subsequently weaned off and transferred to the progressive care unit 4. Anemia secondary to acute blood loss anemia following surgery patient has received a total of 4 units PRBC 5. Chronic diastolic congestive heart failure: Echo on 04/08/2018 demonstrated features consistent with diastolic dysfunction with an EF of 55%; 6. CAD with previous CABG with subsequent stent placement patient is on Plavix as well as statin therapy 7. End-stage renal disease on hemodialysis on Wednesdays and Fridays; auscultation placed to Dr. Alaniz patient's clinical research manager for dialysis orders 8. Dyslipidemia-patient is on statin therapy, continued at home dose 9. COPD; nebs prn 10. Pulmonary hypertension with RSVP of 42 mmHg 11. Depression with anxiety patient is on SSRI as well as Xanax as needed 12. BPH, status post chronic Charles catheter 13. Hypertension-blood pressure controlled, home medications continued with dose adjustment as needed 14. DVT prophylaxis SCDs; Avoided Heparin in view of low platelet counts Code Visit Inpatient E&M: 71241 Subs Hosp L2
--- NOTE | 2018-12-12 09:42 | PN.SURG_ITS ---
Patient Problems: Active and Suspected Problems (Last Updated 12/08/18 @ 11:30 by Amadou Shane MD) Colonic ischemia (Acute) Subjective: Patient tolerating renal diet, no nausea or vomiting, positive output from ileostomy, WBC pending, patient tolerated dialysis yesterday well and back to his 2 L nasal cannula - Physical Exam General: Alert, Oriented x3, Cooperative, No apparent distress Cardiovascular: Regular rate Abdomen: Soft, Non-Distended, Tender - Incision clean dry and intact with retention sutures/leslie/wet-to-dry packing, ileostomy pink with stool output, mucous fistula pink, abdomen purplish ecchymosis, dressing abdominal wound with sanguinous drainage however no active drainage from wound. Vital Signs Temp Pulse Resp BP Pulse Ox 97.9 F 80 16 146/49 H 90 12/12/18 03:30 12/12/18 07:24 12/12/18 07:24 12/12/18 03:30 12/12/18 07:24 Oxygen Flow Rate (L/min) 2 Oxygen Delivery Method Nasal Cannula Weight: 170 lb 6.677 oz Body Mass Index (BMI) 26.4 Finger Stick Blood Glucose 200 Intake and Output for Last 24 Hours 12/10/18 12/11/18 12/12/18 23:59 23:59 23:59 Intake Total 1024.9 / 1024.9 639.1 / 639.1 54.8 / 54.8 Output Total 700 / 700 4000 / 4000 200 / 200 Balance 324.9 / 324.9 -3360.9 / -3360.9 -145.2 / -145.2 Laboratory Tests Past 24 Hrs 12/09/18 12/12/18 12/12/18 04:30 05:40 05:40 WBC Pending RBC Pending Hgb 8.5 L Pending Hct 27.2 L Pending MCV Pending MCH Pending MCHC Pending RDW Pending RDW Differential Pending Plt Count Pending Neut % (Auto) Pending Absolute Neuts (auto) Pending Total Counted Pending Diff Path Review Reviewed Medical Necessity - Tobacco Use Smoking Status: Current every day smoker Tobacco Use: Cigarettes Assessment/Plan All Active Problems (Last Updated 12/08/18 @ 11:30 by Amadou Shane MD) Hyperkalemia (Acute) Colonic ischemia (Acute) 1. on renal diet 2. Anemia?8.5 3. Continue wound dressing with wet-to-dry's in between leslie. 4. Continue po Protonix 5. End-stage renal disease on dialysis, appreciate nephrology's input 6. Leukocytosis slight improved to 11.2, pending--if improved will d/c home on augmentin 7. Peripheral vascular disease, CAD we will place patient back on his baby aspirin and hold the Plavix until follow-up due to the sanguinous drainage from wound 8. Continue wound changes, if d/c will f/u w Dr. Henderson in 1 week. Lizzie Tavares M.D. Pager: [phone] [facility] [address] [place] [address], [facility], [address] [place] [id number] Office: [phone]
[2018-12-12] MEDS: Metoprolol(XL)Succ 100 MG Tablet PO (09:45)
[2018-12-12] MEDS: Famotidine 20 MG Tablet PO (09:47)
[2018-12-12] MEDS: Pantoprazole Sodium 40 MG Tablet PO (09:52)
--- NOTE | 2018-12-12 09:56 | PCM.DC.SUM ---
Discharge Date and Diagnosis - Problem List Patient Problems: Active and Suspected Problems (Last Updated 12/08/18 @ 11:30 by Amadou Shane MD) Colonic ischemia (Acute) Date of Admission: 12/06/18 Date of Discharge: 12/12/18 - Primary Discharge Diagnosis Active and Suspected Problems (Last Updated 12/08/18 @ 11:30 by Amadou Shane MD) Colonic ischemia (Acute) End-stage renal disease, on dialysis COPD - Secondary Discharge Diagnosis Chronic Problems (Last Updated 12/08/18 @ 11:30 by Amadou Shane MD) ESRD (end stage renal disease) (Chronic) History of non-ST elevation myocardial infarction (NSTEMI) (Chronic 01/21/11) History of right and left heart catheterization (Chronic 05/24/18) Patent NICHOLAS to LAD, SVG to 1st OM and SVG to RCA. Elevated right heart pressures, significant Diastolic dysfunction per cath done @ [facility], Dr. Barrientos Stented coronary artery (Chronic) 2003, JASON to circumflex ; 10/13/2009 tsfer from [facility] to [facility], total of 5 bare metal stents to RCA per Dr. Barrientos @ [facility]: 3.5 X 18 [employer] Site Project Manager, followed distally by 3.0 X12 Web Site Project Manager to distal RCA;3.5 X 15 Web Site Project Manager, followed proximally by 4.0 X 18 Web Site Project Manager to Mid RCA; 4.0 X 18 Web Site Project Manager to Proximal RCA S/P CABG x 3 (Chronic 01/26/11) [facility] per Dr. Osito Hernandez: NICHOLAS to LAD, reverse SVG to OMbranch of CX, reverse SVG to PDA of RCA. PDA endarterectomy. Status post peripheral artery angioplasty with insertion of stent (Chronic ~2010) Right common iliac, [facility] Atherosclerotic heart disease of [place] coronary artery without angina pectoris (Chronic) 2003, JASON to circumflex ; 10/10/2009 tsfer from [facility] to [facility], total of 5 bare metal stents to RCA; CABG X 3 vessels @ [facility] 01/31/2011 (critical left main and restenosis of RCA stents) Diastolic CHF (Chronic) HLD (hyperlipidemia) (Chronic) HTN (hypertension) (Chronic) PAD (peripheral artery disease) (Chronic) COPD (chronic obstructive pulmonary disease) (Chronic) Tobacco dependence (Chronic) Anemia (Chronic) BPH (benign prostatic hyperplasia) (Chronic) Hospital Course and Treatment Imaging Results: Clinical Impression(s) from Imaging Studies Chest X-Ray 12/06/18 01:23 IMPRESSION: 1. Worsening congestive heart failure. 2. Stable small left pleural effusion. Electronically Signed: Robert García MD at 2:31 EST Tel , Service support , Abdomen/Pelvis CT 12/06/18 01:36 IMPRESSION: 1. Pneumatosis of the cecum and descending colon with extensive portal venous gas throughout the mesenteric venous channels and into the periphery of the liver parenchyma. 2. Bibasilar airspace infiltration, either representing confluent dependent edema or bibasilar pneumonia. 3. Trace bilateral pleural effusions. 4. Left renal atrophy 5. Simple appearing cyst off of the lateral midpole of the left kidney. Electronically Signed: Robert García MD at 2:41 EST Tel , Service support , ADDENDUM: 12/06/18 0253 IMPRESSION: 1. Pneumatosis of the cecum and descending colon with extensive portal venous gas throughout the mesenteric venous channels and into the periphery of the liver parenchyma. 2. Bibasilar airspace infiltration, either representing confluent dependent edema or bibasilar pneumonia. 3. Trace bilateral pleural effusions. 4. Left renal atrophy 5. Simple appearing cyst off of the lateral midpole of the left kidney. N.B. : The above information has been verbally conveyed by Robert García MD to Andreia Jeffery MD, MD, on 12/06/2018 02:45:55 (ET). Electronically Signed: Robert García MD at 2:41 EST Tel , Service support , Chest X-Ray 12/06/18 08:29 IMPRESSION: The tip of the endotracheal tube is at 6.5 sinus proximal to the iliana. The tip of the nasogastric tube is in the body of the stomach just distal to the gastroesophageal junction. Left basilar atelectasis and/or infiltrate with small left effusion. Central vascular congestion. Electronically Signed: Deven Hensley MD at 9:46 EST , Service support , Chest X-Ray 12/06/18 11:12 IMPRESSION: Placement of left IJ central venous catheter as above. No pneumothorax. Remainder is essentially unchanged Electronically Signed: Salas Mancia DO at 12:49 EST Tel , Service support , Consultations 12/07/18 09:42 Consult: Onc/Wound/galvanizing pot runner Routine Comment: Reason for Consult:: new colostomy 12/06/18 Consult: ICU Consult: Nephrology 12/08/18 Consult: Hospitalist Operations: None, - - Exploratory laparotomy with resection of the right and transverse colon, creation of end ileostomy and mucous fistula on 12/06/[address] Henderson Procedures: Blood transfusion - Postop day 1 due to hemoglobin of 5.3 patient got 2 units along with 1 pack of platelets, patient also had additional packed red blood cells due to hemoglobin of 6.8 12/09/2018, Central line placement - 12/06/18 left IJ, Dialysis - Regular scheduled on Friday 12/08 and Monday 12/11 Summary of Care Provided: The patient is a 68 year old M presented to the ER due to abdominal pain on the evening of 12/06/18. Patient was initially having issues with constipation. CT abdomen pelvis was done in the ER which showed pneumatosis of the cecum and ascending colon with extensive portal venous gas throughout the mesenteric vessel. On movement patient had a white blood count of 11.8. With chronic comorbidities of COPD, CAD, peripheral vascular disease, end-stage renal disease on dialysis and patient was chronically on prednisone, aspirin and Plavix. On 12/06/1218 patient underwent exploratory laparotomy with resection of the right and transverse colon with creation of end ileostomy and mucous fistula by Dr. Henderson. Patient was placed in the ICU after the OR and continued to be intubated-extubated on postop day 1 and require pressors which were able to be weaned. ICU and nephrology were consulted. Patient was also placed on Zosyn IV after surgery due to leukocytosis with ischemic colon. Patient did also have Hb on POD 1 of 5.3 as he was likely hemoconcentrated the day before. Patient did receive 2 units of packed red blood cells and platelets. By POD 3 patient was tolerating clears and having ileostomy output. However the abdomen slightly distended and patient is also complaining of some shortness of breath but patient was due for dialysis which he did receive as normally scheduled. On POD 4 patient seen with white blood count did decrease from 15-12.6 and patient was advanced to full diet. He also had some synchronous drainage from his wound however nothing was active only on dressings but patient did say he had a lot of coughing. Pt Hb 6.8 and he received 1 unit PRBC-->8.5. Patient was on Protonix 40 mg twice daily. Postop day 5 patient was tolerating full's and advanced to a renal diet and continue to have good output from his ileostomy. Patient had wound changes at wet-to-dry between leslie and retention sutures were also still in place. POD 6 patient's white blood count was down to 11.2 and he was receiving his normal scheduled dialysis as he was having some shortness of breath. By POD 7 patient was down to his 2 L O2 which you does wear at home at night and restarted on Aspirin 81 mg, as plavix was still held, pt WBC was 11.1 on d/c and augmentin 500 mg PO q day script given for 5 days. Patient Problems: Active and Suspected Problems (Last Updated 12/08/18 @ 11:30 by Amadou Shane MD) Colonic ischemia (Acute) - Physical Exam General: Alert, Oriented x3, Cooperative, No apparent distress HEENT: Atraumatic Cardiovascular: Regular rate Abdomen: Soft, Non-Distended, Tender - Incision, incision closed with retention sutures as well as leslie with packing wet to dries x4 wean leslie, end ileostomy: [place] with stool, mucous fistula in right upper quadrant pink, purplish ecchymosis to abdomen no active signs of bleeding from wound Extremities: No clubbing, No cyanosis, No edema Skin: - - Purplish ecchymosis over abdomen Neurological: Cranial nerves II-XII grossly intact Psych/Mental Status: Normal Affect Vital Signs Temp Pulse Resp BP Pulse Ox 97.9 F 88 16 149/44 H 90 12/12/18 03:30 12/12/18 09:47 12/12/18 07:24 12/12/18 09:47 12/12/18 07:24 Oxygen Flow Rate (L/min) 2 Oxygen Delivery Method Nasal Cannula Weight: 170 lb 6.677 oz Body Mass Index (BMI) 26.4 Finger Stick Blood Glucose 200 Intake and Output for Last 24 Hours 12/10/18 12/11/18 12/12/18 23:59 23:59 23:59 Intake Total 1024.9 / 1024.9 639.1 / 639.1 54.8 / 54.8 Output Total 700 / 700 4000 / 4000 200 / 200 Balance 324.9 / 324.9 -3360.9 / -3360.9 -145.2 / -145.2 Laboratory Tests Past 24 Hrs 12/09/18 12/12/18 12/12/18 04:30 05:40 05:40 WBC Pending RBC Pending Hgb 8.5 L Pending Hct 27.2 L Pending MCV Pending MCH Pending MCHC Pending RDW Pending RDW Differential Pending Plt Count Pending Neut % (Auto) Pending Absolute Neuts (auto) Pending Total Counted Pending Diff Path Review Reviewed Discharge Diet: Renal Diet Discharge Activity: May not drive while taking narcotic pain medications., May Shower Call your doctor if your incision/area has: Continuous Slow Oozing, Sudden Increased Bleeding, Increased Pain/ Swelling, Increased Redness, Foul Smelling Discharge, Swelling at the incision site Call your doctor if you observe: Fever of 101 or Higher Change Dressing in (Days):: 1 - change dressing daily and PRN Cleanse incision/area with: Normal Saline Home Medications: Medications to take at Discharge Albuterol Sulfate 2.5 mg IH Q4H PRN 11/13/18 Alprazolam [Xanax] 0.5 mg PO TID PRN 11/13/18 Aspirin E.C. [Ecotrin] 81 mg PO DAILY@0800 11/13/18 Ferric Citrate [Auryxia] 210 mg PO BID 11/13/18 Prednisone 10 mg PO DAILY 11/13/18 Ropinirole HCl [Requip] 1 mg PO QHS 11/13/18 Rosuvastatin Calcium [Crestor] 40 mg PO QHS 11/13/18 Tamsulosin HCl [Flomax] 0.8 mg PO DAILY 11/13/18 hydrALAZINE [Apresoline] 25 mg PO BID 11/13/18 Metoprolol(XL)Succ [Toprol Xl (Beta Kadi)] 100 mg PO BID 12/06/18 Amoxicillin/Potassium Clav [Augmentin 500-125 Tablet] 1 each PO DAILY #5 tablet 12/12/18 Oxycodone [Oxyir] 5 - 10 mg PO Q4H PRN PRN 5 Days #30 tablet 12/12/18 Following Prescrptions Were Given to Patient: Oxycodone [Oxyir] 5 - 10 mg PO Q4H PRN PRN 5 Days #30 tablet PRN Reason: Pain Amoxicillin/Potassium Clav [Augmentin 500-125 Tablet] 1 each PO DAILY #5 tablet Primary Care Physician: Tania Berger NP-C [Primary Care Provider] - Please Follow Up With: Armen Henderson MD - after 5pm/weekends call [phone] with any concerns When: call office for f/u in 1 week Medical Necessity - Tobacco Use Smoking Status: Current every day smoker Tobacco Use: Cigarettes Meaningful Use Info Meaningful Use Diagnoses (Choose all that apply): None applicable
--- NOTE | 2018-12-12 10:00 | DS.PCM_ITS ---
Discharge Date and Diagnosis - Problem List Patient Problems: Active and Suspected Problems (Last Updated 12/08/18 @ 11:30 by Amadou Shane MD) Colonic ischemia (Acute) Date of Admission: 12/06/18 Date of Discharge: 12/12/18 - Primary Discharge Diagnosis Active and Suspected Problems (Last Updated 12/08/18 @ 11:30 by Amadou Shane MD) Colonic ischemia (Acute) End-stage renal disease, on dialysis COPD - Secondary Discharge Diagnosis Chronic Problems (Last Updated 12/08/18 @ 11:30 by Amadou Shane MD) ESRD (end stage renal disease) (Chronic) History of non-ST elevation myocardial infarction (NSTEMI) (Chronic 01/21/11) History of right and left heart catheterization (Chronic 05/24/18) Patent NICHOLAS to LAD, SVG to 1st OM and SVG to RCA. Elevated right heart pressu res, significant Diastolic dysfunction per cath done @ [facility], Dr. Barrientos Stented coronary artery (Chronic) 2003, JASON to circumflex ; 10/13/2009 tsfer from [facility] to [facility], total of 5 bare metal stents to RCA per Dr. Barrientos @ [facility]: 3.5 X 18 Pants Maker, followed distally by 3.0 X12 Pants Maker to distal RCA;3.5 X 15 Pants Maker, followed proximally by 4.0 X 18 Pants Maker to Mid RCA; 4.0 X 18 Pants Maker to Proximal RCA S/P CABG x 3 (Chronic 01/26/11) [facility] per Dr. Osito Hernandez: NICHOLAS to LAD, reverse SVG to OMbranch of CX, reverse SVG to PDA of RCA. PDA endarterectomy. Status post peripheral artery angioplasty with insertion of stent (Chronic ~2010) Right common iliac, [facility] Atherosclerotic heart disease of [place] coronary artery without angina pectoris (Chronic) 2003, JASON to circumflex ; 10/10/2009 tsfer from [facility] to [facility], total of 5 bare metal stents to RCA; CABG X 3 vessels @ [facility] 01/31/2011 (critical left main and restenosis of RCA stents) Diastolic CHF (Chronic) HLD (hyperlipidemia) (Chronic) HTN (hypertension) (Chronic) PAD (peripheral artery disease) (Chronic) COPD (chronic obstructive pulmonary disease) (Chronic) Tobacco dependence (Chronic) Anemia (Chronic) BPH (benign prostatic hyperplasia) (Chronic) Hospital Course and Treatment Imaging Results: Clinical Impression(s) from Imaging Studies Chest X-Ray 12/06/18 01:23 IMPRESSION: 1. Worsening congestive heart failure. 2. Stable small left pleural effusion. Electronically Signed: Robert García MD at 2:31 EST Tel , Service support , Abdomen/Pelvis CT 12/06/18 01:36 IMPRESSION: 1. Pneumatosis of the cecum and descending colon with extensive portal venous gas throughout the mesenteric venous channels and into the periphery of the liver parenchyma. 2. Bibasilar airspace infiltration, either representing confluent dependent edema or bibasilar pneumonia. 3. Trace bilateral pleural effusions. 4. Left renal atrophy 5. Simple appearing cyst off of the lateral midpole of the left kidney. Electronically Signed: Robert García MD at 2:41 EST Tel , Service support , ADDENDUM: 12/06/18 0253 IMPRESSION: 1. Pneumatosis of the cecum and descending colon with extensive portal venous gas throughout the mesenteric venous channels and into the periphery of the liver parenchyma. 2. Bibasilar airspace infiltration, either representing confluent dependent edema or bibasilar pneumonia. 3. Trace bilateral pleural effusions. 4. Left renal atrophy 5. Simple appearing cyst off of the lateral midpole of the left kidney. N.B. : The above information has been verbally conveyed by Robert García MD to Andreia Jeffery MD, MD, on 12/06/2018 02:45:55 (ET). Electronically Signed: Robert García MD at 2:41 EST Tel , Service support , Chest X-Ray 12/06/18 08:29 IMPRESSION: The tip of the endotracheal tube is at 6.5 sinus proximal to the iliana. The tip of the nasogastric tube is in the body of the stomach just distal to the gastroesophageal junction. Left basilar atelectasis and/or infiltrate with small left effusion. Central vascular congestion. Electronically Signed: Deven Hensley MD at 9:46 EST , Service support , Chest X-Ray 12/06/18 11:12 IMPRESSION: Placement of left IJ central venous catheter as above. No pneumothorax. Remainder is essentially unchanged Electronically Signed: Salas Mancia DO at 12:49 EST Tel , Service support , Consultations 12/07/18 09:42 Consult: Onc/Wound/scrap sawyer Routine Comment: Reason for Consult:: new colostomy 12/06/18 Consult: ICU Consult: Nephrology 12/08/18 Consult: Hospitalist Operations: None, - - Exploratory laparotomy with resection of the right and transverse colon, creation of end ileostomy and mucous fistula on 12/06/[address] Henderson Procedures: Blood transfusion - Postop day 1 due to hemoglobin of 5.3 patient got 2 units along with 1 pack of platelets, patient also had additional packed red blood cells due to hemoglobin of 6.8 12/09/2018, Central line placement - 12/06/18 left IJ, Dialysis - Regular scheduled on Friday 12/08 and Monday 12/11 Summary of Care Provided: The patient is a 68 year old M presented to the ER due to abdominal pain on the evening of 12/06/18. Patient was initially having issues with constipation. CT abdomen pelvis was done in the ER which showed pneumatosis of the cecum and ascending colon with extensive portal venous gas throughout the mesenteric vessel. On movement patient had a white blood count of 11.8. With chronic comorbidities of COPD, CAD, peripheral vascular disease, end-stage renal disease on dialysis and patient was chronically on prednisone, aspirin and Plavix. On 12/06/1218 patient underwent exploratory laparotomy with resection of the right and transverse colon with creation of end ileostomy and mucous fistula by Dr. Henderson. Patient was placed in the ICU after the OR and continued to be intubated-extubated on postop day 1 and require pressors which were able to be weaned. ICU and nephrology were consulted. Patient was also placed on Zosyn IV after surgery due to leukocytosis with ischemic colon. Patient did also have Hb on POD 1 of 5.3 as he was likely hemoconcentrated the day before. Patient did receive 2 units of packed red blood cells and platelets. By POD 3 patient was tolerating clears and having ileostomy output. However the abdomen slightly distended and patient is also complaining of some shortness of breath but patient was due for dialysis which he did receive as normally scheduled. On POD 4 patient seen with white blood count did decrease from 15-12.6 and patient was advanced to full diet. He also had some synchronous drainage from his wound however nothing was active only on dressings but patient did say he had a lot of coughing. Pt Hb 6.8 and he received 1 unit PRBC-->8.5. Patient was on Protonix 40 mg twice daily. Postop day 5 patient was tolerating full's and advanced to a renal diet and continue to have good output from his ileostomy. Patient had wound changes at wet-to-dry between leslie and retention sutures were also still in place. POD 6 patient's white blood count was down to 11.2 and he was receiving his normal scheduled dialysis as he was having some shortness of breath. By POD 7 patient was down to his 2 L O2 which you does wear at home at night and restarted on Aspirin 81 mg, as plavix was still held, pt WBC was 11.1 on d/c and augmentin 500 mg PO q day script given for 5 days. Patient Problems: Active and Suspected Problems (Last Updated 12/08/18 @ 11:30 by Amadou Shane MD) Colonic ischemia (Acute) - Physical Exam General: Alert, Oriented x3, Cooperative, No apparent distress HEENT: Atraumatic Cardiovascular: Regular rate Abdomen: Soft, Non-Distended, Tender - Incision, incision closed with retention sutures as well as leslie with packing wet to dries x4 wean leslie, end ileostomy: Energy with stool, mucous fistula in right upper quadrant pink, purplish ecchymosis to abdomen no active signs of bleeding from wound Extremities: No clubbing, No cyanosis, No edema Skin: - - Purplish ecchymosis over abdomen Neurological: Cranial nerves II-XII grossly intact Psych/Mental Status: Normal Affect Vital Signs Temp Pulse Resp BP Pulse Ox 97.9 F 88 16 149/44 H 90 12/12/18 03:30 12/12/18 09:47 12/12/18 07:24 12/12/18 09:47 12/12/18 07:24 Oxygen Flow Rate (L/min) 2 Oxygen Delivery Method Nasal Cannula Weight: 170 lb 6.677 oz Body Mass Index (BMI) 26.4 Finger Stick Blood Glucose 200 Intake and Output for Last 24 Hours 12/10/18 12/11/18 12/12/18 23:59 23:59 23:59 Intake Total 1024.9 / 1024.9 639.1 / 639.1 54.8 / 54.8 Output Total 700 / 700 4000 / 4000 200 / 200 Balance 324.9 / 324.9 -3360.9 / -3360.9 -145.2 / -145.2 Laboratory Tests Past 24 Hrs 12/09/18 12/12/18 12/12/18 04:30 05:40 05:40 WBC Pending RBC Pending Hgb 8.5 L Pending Hct 27.2 L Pending MCV Pending MCH Pending MCHC Pending RDW Pending RDW Differential Pending Plt Count Pending Neut % (Auto) Pending Absolute Neuts (auto) Pending Total Counted Pending Diff Path Review Reviewed Discharge Diet: Renal Diet Discharge Activity: May not drive while taking narcotic pain medications., May Shower Call your doctor if your incision/area has: Continuous Slow Oozing, Sudden Increased Bleeding, Increased Pain/ Swelling, Increased Redness, Foul Smelling Discharge, Swelling at the incision site Call your doctor if you observe: Fever of 101 or Higher Change Dressing in (Days):: 1 - change dressing daily and PRN Cleanse incision/area with: Normal Saline Home Medications: Medications to take at Discharge Albuterol Sulfate 2.5 mg IH Q4H PRN 11/13/18 Alprazolam [Xanax] 0.5 mg PO TID PRN 11/13/18 Aspirin E.C. [Ecotrin] 81 mg PO DAILY@0800 11/13/18 Ferric Citrate [Auryxia] 210 mg PO BID 11/13/18 Prednisone 10 mg PO DAILY 11/13/18 Ropinirole HCl [Requip] 1 mg PO QHS 11/13/18 Rosuvastatin Calcium [Crestor] 40 mg PO QHS 11/13/18 Tamsulosin HCl [Flomax] 0.8 mg PO DAILY 11/13/18 hydrALAZINE [Apresoline] 25 mg PO BID 11/13/18 Metoprolol(XL)Succ [Toprol Xl (Beta Kadi)] 100 mg PO BID 12/06/18 Amoxicillin/Potassium Clav [Augmentin 500-125 Tablet] 1 each PO DAILY #5 tablet 12/12/18 Oxycodone [Oxyir] 5 - 10 mg PO Q4H PRN PRN 5 Days #30 tablet 12/12/18 Following Prescrptions Were Given to Patient: Oxycodone [Oxyir] 5 - 10 mg PO Q4H PRN PRN 5 Days #30 tablet PRN Reason: Pain Amoxicillin/Potassium Clav [Augmentin 500-125 Tablet] 1 each PO DAILY #5 tablet Primary Care Physician: Tania Berger NP-C [Primary Care Provider] - Please Follow Up With: Armen Henderson MD - after 5pm/weekends call [phone] with any concerns When: call office for f/u in 1 week Medical Necessity - Tobacco Use Smoking Status: Current every day smoker Tobacco Use: Cigarettes Meaningful Use Info Meaningful Use Diagnoses (Choose all that apply): None applicable
--- NOTE | 2018-12-12 10:25 | CASEMGMT ---
This RN CM to room to speak with pt regarding discharge plan/HHC at this time. Pt/ aware of benefits with HHC with new colostomy and both decline HHC at this time. Pt states 'there is no need, she(pointing to ) is perfectly capable of taking care of it.' Terra RN is at bedside and also encouraged pt to have HHC for a short period of time and pt once again declined. Pt/ voice no further concerns/needs at this time. Per , 'the wound nurse has shown me what to do and she is sending us home with a bag of supplies to get started.' Sergio, edge stainer, aware of all and that pt up for discharge at this time. She states she will be down to change pt's dressing with present. She states she has pt's colostomy supplies set up through [facility] and she will send them with a Rx for wound care supplies. SStaten RN CM
--- NOTE | 2018-12-12 11:04 | NURSING ---
observed dressing change again prior to patient being discharged later today. the small opening along the incision are healing nicely. there are 4 small areas that are being lightly packed with NS moistened gauze. minimal mucous noted from the mucous fistula. covered mucous fistula and incision with ABD pads and secured with Medipore tape. prescription for wound care supplies given to . ostomy supplies were ordered through [employer]. 3 appliance changes sent with patient to be sure they have enough until supplies arrive. patient and deny questions. very appreciative of care and education provided. was also given a typed step by step ostomy change list. she is still refusing home health. aware to call for needs.
--- NOTE | 2018-12-12 11:16 | PHA.DC.MC ---
Pharmacy Service has performed discharge medication reconciliation and counseling for this patient. The patient's discharge medication list was reviewed for discrepancies and discrepancies were resolved. The patient was counseled on the following discharge medications and changes in medications for homegoing were reviewed. Ciprofloxacin [Cipro] 500 mg PO DAILY #5 tablet 12/12/18 Metronidazole [Flagyl] 500 mg PO Q8H #15 tablet 12/12/18 The Reason for Use, instructions for use, and potential side effects were reviewed for all new medications. The patient's questions regarding all of their medications were answered. The patient demonstrated some understanding but would benefit from further education and reinforcement. Home Medications Albuterol Sulfate 2.5 mg IH Q4H PRN 11/13/18 Alprazolam [Xanax] 0.5 mg PO TID PRN 11/13/18 Aspirin E.C. [Ecotrin] 81 mg PO DAILY@0800 11/13/18 Ferric Citrate [Auryxia] 210 mg PO BID 11/13/18 Prednisone 10 mg PO DAILY 11/13/18 Ropinirole HCl [Requip] 1 mg PO QHS 11/13/18 Rosuvastatin Calcium [Crestor] 40 mg PO QHS 11/13/18 Tamsulosin HCl [Flomax] 0.8 mg PO DAILY 11/13/18 hydrALAZINE [Apresoline] 25 mg PO BID 11/13/18 Metoprolol(XL)Succ [Toprol Xl (Beta Kadi)] 100 mg PO BID 12/06/18 Ciprofloxacin [Cipro] 500 mg PO DAILY #5 tablet 12/12/18 Metronidazole [Flagyl] 500 mg PO Q8H #15 tablet 12/12/18 Oxycodone [Oxyir] 5 - 10 mg PO Q4H PRN PRN 5 Days #30 tablet 12/12/18
[2018-12-12] MEDS: Aspirin 81 MG TAB.CHEW PO (12:54)
--- NOTE | 2018-12-12 15:01 | PN.RENAL_ITS ---
Patient Problems: Active and Suspected Problems (Last Updated 12/08/18 @ 11:30 by Amadou Shane MD) Colonic ischemia (Acute) Subjective: no new events - Physical Exam General: Alert, Oriented x3, Cooperative HEENT: Atraumatic, PERRLA, EOMI, Normocephalic Neck: Supple, No JVD, Negative Carotid Bruits Lungs: Clear to auscultation, Normal air movement Cardiovascular: Regular rate, No murmurs Abdomen: Bowel Sounds Present, Soft, Non Tender Extremities: No edema, Capillary Refill Less than 3 Seconds Skin: No rashes, No breakdown Musculoskeletal: No Tenderness to Palpation of Joints or Extremities Neurological: Cranial nerves II-XII grossly intact Psych/Mental Status: Normal Affect, Appropriate Vital Signs Temp Pulse Resp BP Pulse Ox 98.2 F 76 16 149/44 H 97 12/12/18 09:30 12/12/18 11:30 12/12/18 11:30 12/12/18 09:47 12/12/18 09:30 Oxygen Flow Rate (L/min) 2 Oxygen Delivery Method Nasal Cannula Weight: 77.3 kg Body Mass Index (BMI) 26.4 Finger Stick Blood Glucose 200 Intake and Output for Last 24 Hours 12/10/18 12/11/18 12/12/18 23:59 23:59 23:59 Intake Total 1024.9 / 1024.9 639.1 / 639.1 344.8 / 344.8 Output Total 700 / 700 4000 / 4000 200 / 200 Balance 324.9 / 324.9 -3360.9 / -3360.9 144.8 / 144.8 Laboratory Tests Past 24 Hrs 12/12/18 12/12/18 05:40 05:40 WBC 11.1 H RBC 2.79 L Hgb 8.5 L 8.6 L Hct 27.2 L 27.4 L MCV 98.2 H MCH 30.8 MCHC 31.4 L RDW 18.6 H RDW Differential 66.0 H Plt Count 107 L MPV 11.1 Immature Gran % (Auto) 0.200 Neut % (Auto) 82.3 H Lymph % (Auto) 5.3 L Rabun % (Auto) 11.0 H Eos % (Auto) 1.1 Baso % (Auto) 0.1 Absolute Neuts (auto) 9.1 H Absolute Lymphs (auto) 0.59 L Total Counted Not Reportable Differential Comment SCANNED Anisocytosis 2+ Medical Necessity - Tobacco Use Smoking Status: Current every day smoker Tobacco Use: Cigarettes Assessment/Plan All Active Problems (Last Updated 12/08/18 @ 11:30 by Amadou Shane MD) Hyperkalemia (Acute) Colonic ischemia (Acute) 1-End-stage renal disease on Tuesday hemodialysis schedule. Patient goes to [facility]. HD tomorrow 2-anemia: Patient received 1 unit of RBCs 3-pneumatosis of the colon with ischemic bowel. Status post colectomy with colostomy. Will defer the management to the surgery team.
--- NOTE | 2018-12-13 14:05 | CASEMGMT ---
Addendum entered by Obdulia Cavanaugh 12/13/18 14:12: This RN CM received call back from pt and he states he is currently at dialysis and is 'still von sore.' Pt states no questions regarding discharge instructions/medications at this time. Pt states that he still has 'some seepage from wound' but states has no questions regarding colostomy. Pt states has f/u on tuesday and plans to keep appts at this time. Pt asks what diet he should be on and per discharge instructions, pt is to continue on renal diet, voices understanding. Pt states that he watches his sodium and fluid intake. Pt states no suggestions for WCH at this time. Pt voices no further questions/concerns/needs at this time. Chris ANDRADE CM Original Note: RAYMNOD SPENCER Discharge F/U Phone Call LACE: 16 Strata: 4 Discharge date: 12/12/18 Call date: 12/13/18 Call time: [id number] Attempted to reach pt without success at this time, message left for pt to call this RN JOHANNA back if able. Chris ANDRADE CM Admission dx: Ischemic bowel
== END 2018-12-12 14:45 | disposition home or self-care (01) | DRG 329 ==
LOC: ED 04:53 → SDC 05:28 → ICU 12-07 06:19 → SDC 12-07 06:40 → ICU 12-08 22:39 → PCU 12-08 23:38
PROVIDERS: Hospitalist; Internal Medicine Critical Care Medicine; Surgery; Admitting Provider Surgery; Emergency Provider Emergency Medicine; Family Provider Nurse Practitioner Family; PCP Nurse Practitioner Family; Referring Provider Surgery; Visit Provider Internal Medicine
PROC: 0DBL0ZZ Excision of Transverse Colon, Open Approach (ICD-10-PCS; CPT 49000; principal; 2018-12-06 05:10)
DX: K55.039 Acute (reversible) ischemia of large intestine, extent unspecified (principal); N18.6 End stage renal disease; J96.21 Acute and chronic respiratory failure with hypoxia; A41.9 Sepsis, unspecified organism; R65.21 Severe sepsis with septic shock; I13.2 Hypertensive heart and chronic kidney disease with heart failure and with stage 5 chronic kidney disease, or end stage renal disease; I50.32 Chronic diastolic (congestive) heart failure; D62 Acute posthemorrhagic anemia; E87.5 Hyperkalemia; J44.9 Chronic obstructive pulmonary disease, unspecified; I27.20 Pulmonary hypertension, unspecified; Z99.81 Dependence on supplemental oxygen; E78.5 Hyperlipidemia, unspecified; I25.10 Atherosclerotic heart disease of native coronary artery without angina pectoris; I73.9 Peripheral vascular disease, unspecified; F17.210 Nicotine dependence, cigarettes, uncomplicated; F41.8 Other specified anxiety disorders; N40.0 Benign prostatic hyperplasia without lower urinary tract symptoms; Z99.2 Dependence on renal dialysis; Z95.5 Presence of coronary angioplasty implant and graft; Z95.1 Presence of aortocoronary bypass graft; I25.2 Old myocardial infarction; Z79.899 Other long term (current) drug therapy; Z79.02 Long term (current) use of antithrombotics/antiplatelets; Z79.82 Long term (current) use of aspirin
CPT/HCPCS: 71045; 74018; 74176; 80048; 80053; 80076; 82550; 83605; 83690; 83735; 84100; 84478; 85014; 85018; 85025; 86850; 86900; 86920; 86922; 88307; 90937; 93005; 94002; 94003; 94640; 94660; 94760; 95831; 97116; 97162; 97166; 97530; 99285; J7040; P9016; P9040; P9047; A4216; G0257; J2405; J3490

== ENCOUNTER 2018-12-18 19:11 | Observation (INO) | payer MEDICARE, SELFPAY ==
[2018-12-06 08:29] VITALS: BMI 26.4
[2018-12-18] VITALS (10 sets, daily range): BP systolic 126–143; BP diastolic 46–65; PULSE 84–101; RESP 12–20; TEMP 37.5–37.6; O2SAT 96–100; BMI 26.4
--- NOTE | 2018-12-18 19:28 | EKG12_ITS ---
Test Reason : SOB Blood Pressure : / mmHG Vent. Rate : 096 BPM Atrial Rate : 082 BPM P-R Int : 000 ms QRS Dur : 080 ms QT Int : 412 ms P-R-T Axes : 000 074 077 degrees QTc Int : 520 ms Multi focal atrial tachycardia Voltage criteria for left ventricular hypertrophy ST & T wave abnormality, consider anterolateral ischemia Prolonged QT Abnormal ECG Confirmed by SID REAGAN ([id number]), electronic news gathering editor SHIRA HURD ([id number] on 12/22/2018 1:29:05 PM Referred By: Sharon De La Cruz Confirmed By:SID REAGAN
--- NOTE | 2018-12-18 19:30 | ED.DCSUM_ITS ---
- ER Visit Summary Date of Service: 12/18/18 Chief Complaint: [] History of Present Illness: The patient is a 68 M [] Physical Examination: [] Test Results: [] Emergency Department Course and Treatment: [] Treatment Plan: [] Disposition: [] Impression: [] This note was generated with [employer] dictation software. It may contain incorrect words, spelling, and punctuation that were not noted in review of the chart prior to signing ED Disposition - Plan for ED Patient:
[2018-12-18 19:59] LABS: Absolute Lymphocyte Count 1.16 X10^3/ul (0.83-4.51); Absolute Neutrophil Count 10.1 X10^3/uL (2.0-7.7); Basophil# 0.01 X10^3/uL; Basophil% 0.1 % (0-1); Eosinophil# 0.08 X10^3/uL; Eosinophils% 0.6 % (0-5); Hematocrit 31.4 % (40-54); Hemoglobin 9.9 g/dl (13.0-16.5); Lymphocyte # 1.16 X10^3/ul (4.0); Lymphocyte % 9.2 % (19-41); Mean Corp Hgb Conc 31.5 g/gl (32-36); Mean Corpuscular Hgb 30.8 pg (27.0-32.0); Mean Corpuscular Volume 97.8 fL (80-94); Mean Platelet Vol. 9.9 fl (6.2-12.0); Monocyte# 1.21 X10^3/uL; Monocyte% 9.6 % (0-10); Neutrophil # 10.11 X10^3/uL (2.7-7.7); Neutrophil % 80.3 % (47-70); POSITIVE COUNT NO; POSITIVE DIFFERENTIAL NO; POSITIVE MORPHOLOGY NO; Platelet Count 282 K/mm3 (150-450); RBC Distribution Width CV 17.3 % (11.6-14.6); RBC Distribution Width SD 61.5 fl (35.1-43.9); Red Blood Count 3.21 M/mm3 (4.6-6.2); White Blood Count 12.6 K/mm3 (4.4-11.0)
--- NOTE | 2018-12-18 20:00 | RAD_ITS ---
STUDY: X-RAY CHEST REASON FOR EXAM: Male, 68 years old. Shortness of breath. TECHNIQUE: Single AP portable view of the chest. COMPARISON: 11 December 2018 FINDINGS: Right central line tip overlies the distal SVC in unchanged position. Sternotomy wires are midline. There is reduced left effusion now with minimal effusion within the costophrenic angle versus atelectatic change. There is no demonstrated pleural abnormality. Normal size heart. Normal mediastinum and justyn. Normal visualized pulmonary arteries. There is atherosclerotic calcification of the aortic arch with tortuosity. Normal visualized thoracic spine. Normal visualized ribs, clavicles, and shoulders. There is no demonstrated abnormality of the visualized soft tissue structures of the upper abdomen. RAD/Chest 1 View (Portable) IMPRESSION: Minimal left costophrenic angle effusion versus atelectatic change with no large focal consolidation. Electronically Signed: Luis Dubois DO at 20:12 EST , Service support ,
[2018-12-18 20:20] LABS: Anion Gap 12 (5-15); BUN 23 mg/dL (7-18); BUN/Creat Ratio 7.5 RATIO (10-20); Calcium,Total 8.1 mg/dL (8.5-10.1); Chloride 98 mmol/L (98-107); Creatinine, Serum 3.07 mg/dL (0.70-1.30); EST Glomerular Filtration Rate 22 mL/min (>60); Est Glom Filt Rate - Afr Amer 26 mL/min (>60); Estimated Creatinine Clearance 21.83 ml/min; Glucose 89 mg/dL (74-106); Potassium 3.3 mmol/L (3.5-5.1); Sodium Level 136 mmol/L (136-145)
--- NOTE | 2018-12-18 20:35 | ED.RN ---
lab called with critical lab results. Lactic acid 3.0. Dr. Snyder made aware. no new orders at this time
--- NOTE | 2018-12-18 20:41 | CT_ITS ---
STUDY: CTA CHEST REASON FOR EXAM: Male, 68 years old. Shortness of breath. RADIATION DOSAGE (If Supplied By Facility): CTDIvol = ( 8.3 ) mGy, DLP = ( 568.83 ) mGycm TECHNIQUE: The examination was performed with the intravenous administration of Isovue 370 75 ml IV. Post-processing of the angiographic images was performed, with multiplanar reformation and 3D reconstruction. Individualized dose optimization techniques were used for this CT. COMPARISON: 18 May 2018 FINDINGS: Normal enhancement of the main pulmonary artery and right and left pulmonary arteries. Normal enhancement of the bilateral peripheral pulmonary arteries. There is no demonstrated pulmonary embolism. There is atherosclerotic calcification of the aortic arch with tortuosity. There is no demonstrated aortic dissection. There are calcifications of the coronary arteries. There are visualized mediastinal lymph nodes, which are within normal size limits, and with normal morphology. Normal hilar regions. Normal visualized trachea and bronchi. The lungs are well expanded. Diffuse centrilobular emphysematous changes are present throughout the lung parenchyma. There is a moderate size right pleural effusion with right lower lobe posterior atelectasis. Normal pleura. Normal chest wall structures. Normal osseous structures. Normal visualized upper abdomen. CT/CTA Chest W/WO Contrast IMPRESSION: 1. Diffuse emphysematous changes with no evidence of pulmonary embolism or aortic dissection. Moderate right pleural effusion is present. Electronically Signed: Luis Dubois DO at 21:44 EST , Service support ,
--- NOTE | 2018-12-18 22:55 | HP.PCM_ITS ---
History of Present Illness Date of Admission: 12/18/18 Chief Complaint: shortness of breath The patient is a 68 year old M with an extensive past medical history which includes recent abdominal surgery for colonic ischemia with colostomy placement. He also has a history of ESRD on hemodialysis, COPD, CAD status post CABG x3, PAD, hypertension hyperlipidemia. He was admitted through the ED on 12/18/2018 with a complaint of shortness of breath for the past 2 days. Patient states shortness of breath started yesterday. He denied any assisted wheezing and denied any chest pain. Shortness of breath was present with exertion and with rest. He thought he may have been fluid overloaded from dialysis and so today he went to dialysis where he had an additional 3 pounds taking off, making a total of about 7 pounds taken off. However patient states shortness of breath persisted and actually worsened after dialysis. He therefore decided to come into the ED. Of note, abdominal surgery was just about 2 weeks ago. Vitals in the ED was significant for mild fever of 99.6 Fahrenheit and was initially breat guilherme around 20 breaths/min. He was saturating at 99% on 2 L of oxygen but still felt uncomfortable and so was put on BiPAP which he states made him comfortable. Labs showed potassium of 3.3 and creatinine of 3.07 as well as lactic acid of 3 and troponin of 0.049. CBC showed white cell count of 12.6 and hemoglobin of 9.9. Is been admitted to be managed for acute hypoxic respiratory insufficienc y. [] Past Medical History Past Medical History (Chronic Problems): Chronic Problems (Last Updated 12/08/18 @ 11:30 by Amadou Shane MD) ESRD (end stage renal disease) (Chronic) History of non-ST elevation myocardial infarction (NSTEMI) (Chronic 01/21/11) History of right and left heart catheterization (Chronic 05/24/18) Patent NICHOLAS to LAD, SVG to 1st OM and SVG to RCA. Elevated right heart pressures, significant Diastolic dysfunction per cath done @ [facility], Dr. Barrientos Stented coronary artery (Chronic) 2003, JASON to circumflex ; 10/13/2009 tsfer from [facility] to [facility], total of 5 bare metal stents to RCA per Dr. Barrientos @ [facility]: 3.5 X 18 [employer], followed distally by 3.0 X12 [employer] to distal RCA;3.5 X 15 [employer], followed proximally by 4.0 X 18 [employer] Powerplant [employer]airer to Mid RCA; 4.0 X 18 [employer]plant [employer]airer to Proximal RCA S/P CABG x 3 (Chronic 01/26/11) [facility] per Dr. Osito Hernandez: NICHOLAS to LAD, reverse SVG to OMbranch of CX, reverse SVG to PDA of RCA. PDA endarterectomy. Status post peripheral artery angioplasty with insertion of stent (Chronic ~2010) Right common iliac, [facility] Atherosclerotic heart disease of [place] coronary artery without angina pectoris (Chronic) 2003, JASON to circumflex ; 10/10/2009 tsfer from [facility] to [facility], total of 5 bare metal stents to RCA; CABG X [address] [facility] 01/31/2011 (critical left main and restenosis of RCA stents) Diastolic CHF (Chronic) HLD (hyperlipidemia) (Chronic) HTN (hypertension) (Chronic) PAD (peripheral artery disease) (Chronic) COPD (chronic obstructive pulmonary disease) (Chronic) Tobacco dependence (Chronic) Anemia (Chronic) BPH (benign prostatic hyperplasia) (Chronic) Medical History: Medical History (Last Updated 12/08/18 @ 11:30 by Amadou Shane MD) History of non-ST elevation myocardial infarction (NSTEMI) (Chronic) Onset Date: 01/21/11 I25.2 Atherosclerotic heart disease of [place] coronary artery without angina pectoris (Chronic) I25.10 2003, JASON to circumflex ; 10/10/2009 tsfer from [facility] to [facility], total of 5 bare metal stents to RCA; CABG X [address] [facility] 01/31/2011 (critical left main and restenosis of RCA stents) Diastolic CHF (Chronic) I50.30 HLD (hyperlipidemia) (Chronic) E78.5 HTN (hypertension) (Chronic) I10 PAD (peripheral artery disease) (Chronic) I73.9 COPD (chronic obstructive pulmonary disease) (Chronic) J44.9 Tobacco dependence (Chronic) F17.200 Anemia (Chronic) D64.9 BPH (benign prostatic hyperplasia) (Chronic) N40.0 Allergies irbesartan [From Avapro] Allergy (Severe, Verified 12/18/18 19:12) Blisters zolpidem [From Ambien] Adverse Reaction (Severe, Verified 12/18/18 19:12) made me go crazy, memory loss amoxicillin Adverse Reaction (Intermediate, Verified 12/18/18 19:12) Other TOLERATES ZOSYN PASSES BLOOD IN STOOL metronidazole [From Flagyl] Adverse Reaction (Verified 12/18/18 20:00) Other pt states he got palpitations and nose bleed. Home Medications: Ambulatory Orders Medication Instructions Recorded Albuterol Sulfate 2.5 mg IH Q4H PRN 11/13/18 Alprazolam [Xanax] 0.5 mg PO TID PRN 11/13/18 Aspirin E.C. [Ecotrin] 81 mg PO DAILY@0800 11/13/18 Ferric Citrate [Auryxia] 210 mg PO BID 11/13/18 Prednisone 10 mg PO DAILY 11/13/18 Rosuvastatin Calcium [Crestor] 40 mg PO QHS 11/13/18 Tamsulosin HCl [Flomax] 0.8 mg PO DAILY 11/13/18 hydrALAZINE [Apresoline] 25 mg PO BID 11/13/18 Metoprolol(XL)Succ [Toprol Xl 100 mg PO BID 12/06/18 (Beta Kadi)] Clopidogrel Bisulfate [Plavix] 75 mg PO DAILY 12/18/18 Surgical History: Surgical History (Last Updated 12/08/18 @ 11:30 by Amadou Shane MD) History of right and left heart catheterization (Chronic) Onset Date: 05/24/18 Z98.890 Patent NICHOLAS to LAD, SVG to 1st OM and SVG to RCA. Elevated right heart pressures, significant Diastolic dysfunction per cath done @ [facility], Dr. Barrientos Stented coronary artery (Chronic) Z95.5 2003, JASON to circumflex ; 10/13/2009 tsfer from [facility] to [facility], total of 5 bare metal stents to RCA per Dr. Barrientos @ [facility]: 3.5 X 18 [employer] Powerplant [employer]airer, followed distally by 3.0 X12 [employer] Powerplant Repairer to distal RCA;3.5 X 15 [employer] Powerplant Repairer, followed proximally by 4.0 X 18 [employer] Powerplant Repairer to Mid RCA; 4.0 X 18 [employer] Powerplant Repairer to Proximal RCA S/P CABG x 3 (Chronic) Onset Date: 01/26/[address] [facility] per Dr. Osito Hernandez: NICHOLAS to LAD, reverse SVG to OMbranch of CX, reverse SVG to PDA of RCA. PDA endarterectomy. history of surgically created arteriovenous fistula s/p fistulogram Onset Date: ~09/28/18 Surgical History: coronary bypass surgery, tonsillectomy Psychiatric History: No pertinent psych hx Lives: With Family Smoking Status: Current some day smoker Tobacco Use: Cigarettes Alcohol: Occasional Drugs: None - *Family History Maternal Family History: Family History (Last Reviewed 11/13/18 @ 12:56 by Manoj Christensen MD) Father CAD (coronary artery disease) Hypertension Kidney disease CVA (cerebral vascular accident) Other Cancer History Items: Heart Disease Paternal Family History: Family History (Last Reviewed 11/13/18 @ 12:56 by Manoj Christensen MD) Father CAD (coronary artery disease) Hypertension Kidney disease CVA (cerebral vascular accident) Other Cancer History Items: Heart Disease Review of Systems Constitutional: Denies: Chills, Fever, Malaise, Weakness, Weight Change, Fatigue Eyes: Denies: Blurred vision HEENT: Denies: Head Aches, Sinus Congestion, Sinus Drainage Cardiovascular: Reports: Edema. Denies: Chest Pain, Chest Pressure, Chest Tightness, Heaviness, Light Headedness, Orthopnea, Palpitations, Paroxysmal Noc. Dyspnea, Syncope Respiratory: Reports: Shortness of Breath, Shortness of breath at rest, Shortness of breath upon exertion. Denies: Cough, Hemoptysis, Pleuritic Pain, Sputum production, Wheezing Gastrointestinal: Reports: - - has colostomy bag. Denies: Abdominal Pain, Nausea, Vomiting Genitourinary: Denies: Dysuria Musculoskeletal: Denies: Joint Pain, Joint Tenderness Skin: Denies: Rash, Wounds Neurological: Denies: Numbness, Tingling, Focal weakness Psychiatric: Denies: Anxiety, Depression, Homicidal Ideations, Suicidal Ideations Hematologic/ Lymphatic: Denies: Easy Bruising, Easy Bleeding VTE Information - Inpt Only VTE Present on Admission: No VTE Pharm Prophylaxis ordered?: Yes - Physical Exam General: Alert, Oriented x3, Cooperative, No apparent distress HEENT: Atraumatic, PERRLA, EOMI, Normocephalic Oral: Moist Mucosa Neck: Supple, No JVD, Negative Carotid Bruits Lungs: - - decreased breath sounds bibasally with wheezing bilaterally. on 2L of oxygen Cardiovascular: Regular rate, Normal S1, Normal S2, No murmurs, - - irregularly irregular, rate controlled Afib Abdomen: Bowel Sounds Present, - - colostomy bag in place; surgical dressing is clean and dry Extremities: No clubbing, No cyanosis, No edema, Capillary Refill Less than 3 Seconds Skin: No rashes, No breakdown Musculoskeletal: No Tenderness to Palpation of Joints or Extremities Lymphatic: No Cervical, Supraclavicular, or Inguinal Adenopathy Neurological: Cranial nerves II-XII grossly intact, Neuro grossly intact, Motor Exam 5/5 strength throughout Psych/Mental Status: Normal Affect, Appropriate, Alert and oriented to time, place, person, mood and affect Vital Signs Temp Pulse Resp BP Pulse Ox 99.6 F H 84 18 143/50 H 99 12/18/18 21:32 12/18/18 21:33 12/18/18 21:33 12/18/18 21:33 12/18/18 21:33 Oxygen Flow Rate (L/min) 2 Oxygen Delivery Method Nasal Cannula Weight: 168 lb 10.458 oz Body Mass Index (BMI) 26.4 Finger Stick Blood Glucose 200 Microbiology Past 72 Hours 12/18/18 19:40 Influenza Types A,B Direct FA (ESA) - Final Mucosa - Nasopharyngeal Laboratory Tests Past 24 Hrs 12/18/18 12/18/18 12/18/18 19:45 19:45 19:45 WBC 12.6 H RBC 3.21 L Hgb 9.9 L Hct 31.4 L MCV 97.8 H MCH 30.8 MCHC 31.5 L RDW 17.3 H RDW Differential 61.5 H Plt Count 282 MPV 9.9 Immature Gran % (Auto) 0.200 Neut % (Auto) 80.3 H Lymph % (Auto) 9.2 L [place] % (Auto) 9.6 Eos % (Auto) 0.6 Baso % (Auto) 0.1 Absolute Neuts (auto) 10.1 H Absolute Lymphs (auto) 1.16 Total Counted Not Reportable Sodium 136 Potassium 3.3 L Chloride 98 Carbon Dioxide 26.0 Anion Gap 12 BUN 23 H Creatinine 3.07 H Estim Creat Clear Calc 21.83 Est GFR (MDRD) Af Amer 26 L Est GFR (MDRD) Non-Af 22 L BUN/Creatinine Ratio 7.5 L Glucose 89 Lactic Acid 3.0 H Calcium 8.1 L Troponin I 0.049 H Diagnostic Data Chest X-Ray 12/18/18 20:00 IMPRESSION: Minimal left costophrenic angle effusion versus atelectatic change with no large focal consolidation. Electronically Signed: Luis DuboisDO at 20:12 EST , Service support , Chest CTA 12/18/18 20:41 IMPRESSION: 1. Diffuse emphysematous changes with no evidence of pulmonary embolism or aortic dissection. Moderate right pleural effusion is present. Electronically Signed: Luis Dubois DO at 21:44 EST , Service support , Assessment/Plan All Active Problems (Last Updated 12/08/18 @ 11:30 by Amadou Shane MD) Hyperkalemia (Acute) Colonic ischemia (Acute) 68-year-old admitted with a complaint of shortness of breath for 2 days. 1. Acute on chronic hypoxic respiratory insuffiency due to probable COPD exacerbation * has ~ 40 pack year history and continues to smoke. on 2L of oxygen at home * had an additional 3 pounds of fluid taken off in dialysis today, making a total of ~ 7 pounds of weight removed during dialysis today * CT angiogram done was negative for any PE, but showed diffuse emphysematous changes with moderate right pleural effusion. * CXR showed minimal left costophrenic angle effusion vs atelectatic change with no large focal consolidation * admit to PCU with telemetry * give breathing treatments with duonebs * will give IV solumedrol 40mg q8 * check respiratory panel * titrate oxygen to maintain sats?90% 2. ESRD: * on HD. * received dialysis today with removal of 7 pounds of weight. since he received contrast today, to have another session of dialysis tomorrow. * Consult nephrology * 3. Recent colonic ischemia s/p surgery with colostomy placement * stable. colostomy bag in place * will monitor * 4. lactic acidosis: * lactic acid was 3 on admission; * cause is unclear since patient is not hypotensive. could possibly be related to surgery * Will hold off on fluids for now due to ESRD state. * will repeat lactic acid level and monitor * 5. Hypokalemia: K is 3.1. Will give oral replacement and monitor 6. HFpEF: stable. Will monitor 7. CAD s/p CABG: stable. Metoprolol, aspirin and statin. * 8. Hypertension: On metoprolol. 9. BPH: On Flomax. DVT prophylaxis: heparin CODE STATUS: Full code * Patient counseled extensively about different types of CODE STATUS including full code, DNR CCA and DNR CCA. Patient elects to be full code. Total wwyc-wt-noys time 16 minutes. Code Visit OBSV E&M: 83518 Initial observation care L3 Procedures: 89359 Advncd Care Plan 30 Min
--- NOTE | 2018-12-18 23:35 | ED.VISSUMM ---
- ER Visit Summary Date of Service: 12/18/18 Chief Complaint: Shortness of breath History of Present Illness: The patient is a [address] Barrientos and Stephanie Berger. Patient was admitted from December 06 - December 12 with ischemic colitis and had a colectomy and colostomy. Reports that he had been doing well and improving since surgery. However, states that this morning he has shortness of breath that is gradually worsened. It is moderate currently and severe at worst. Is worsened by laying flat and relieved by nothing. He had a cough that is nonproductive. He denies any fever, chills, or chest pain. Patient reports that he went to dialysis and got a full round of dialysis thinking that this would help as this is similar to when he had CHF from volume overload in the past. He was down 7 pounds after dialysis and still did not get any relief. Patient denies any nausea, vomiting, or blood in his colostomy drainage. It is draining normally. He denies any other complaints. Physical Examination: Vitals: 98.5, 143/65, 101, 20, 98% on 2 L nasal cannula. General: Well-nourished and well-developed. Head: Normocephalic atraumatic. Neck: Supple, no lymphadenopathy. No JVD. Nontender. Cardiovascular: Tachycardic irregular rhythm. No murmurs. Respiratory: Tachypnea and mild respiratory distress. Clear to auscultation bilaterally. Abdominal: Soft, appropriate mild postoperative tenderness surrounding his incision. The incision is clean, dry, and intact. It is healing well. There is no surrounding erythema or drainage. Nondistended, normal bowel sounds. No guarding, rebound, or peritoneal signs. Back: Nontender. Extremities: Nontender, 2+ pitting edema of his lower extreme is bilaterally. Skin: Normal color, no rash. Neurologic: Alert and oriented ?3. Cranial nerves II through XII are intact. Normal strength and sensation. Psych: Normal affect. Test Results: EKG is atrial fibrillation at 96. Unchanged from last month. Troponin 0 0.049. CBC is more for a white count of 12.6 with an H&H of 9.9 31.4, segment neutrophils 80, lymphocytes of 9. Chem-7 marked potassium 3.3, BUN 23, creatinine of 3.07, and calcium 8.1. Lactic acid is 3.0. Chest x-ray shows minimal left costal phrenic angle effusion versus atelectasis. No focal consolidation. As the patient had a recent surgery and admission he is at high risk for PE. Because of this a CTA of the chest was obtained which shows no PE or dissection. He does have a moderate right pleural effusion. Emergency Department Course and Treatment: Patient felt much improved upon arrival to the emergency department. He had had [address] into the emergency department. However, he still felt as though he needed BiPAP. He had BiPAP placed and feels much improved. Treatment Plan: At this time I do not have an expiration for the patient's shortness of breath. He does have a history of COPD. I did not give him steroids in the emergency department because of his recent surgery and the possible impeding of his healing. Also, he feels much improved. He was discussed with Dr. Alaniz who will have him dialyzed tomorrow as he did receive IV contrast today. He was also discussed with Dr. De La Cruz who will admit him to the hospital for further evaluation and treatment. Disposition: Admitted in improved condition. Impression: 1. Dyspnea, uncertain cause. 2. COPD. 3. End-stage renal disease. 4. Right pleural effusion. 5. Status post colectomy December 06, 2018. 6. Atrial fibrillation. This note was generated with [employer] software. It may contain incorrect words, spelling, and punctuation that were not noted in review of the chart prior to signing
[2018-12-18 23:53] LABS: Reflex Lactate? Y
[2018-12-19] VITALS (17 sets, daily range): BP systolic 135–160; BP diastolic 56–92; PULSE 71–94; RESP 16–20; TEMP 36.5–37; O2SAT 95–98; BMI 25.2; BMI 26.4
[2018-12-19] MEDS: 0.9% NaCl Peripheral Flush Adult/Peds IV (01:42)
[2018-12-19] MEDS: Ipratropium/Albuterol Sulfate 3 ML AMPUL.NEB INHALATION ×4 (05:15→14:48)
[2018-12-19 07:20] LABS: Absolute Neutrophil Count 11.2 X10^3/uL (2.0-7.7); Hematocrit 29.6 % (40-54); Hemoglobin 8.9 g/dl (13.0-16.5); Lymphocyte % 2.6 % (19-41); Mean Corp Hgb Conc 30.1 g/gl (32-36); Mean Corpuscular Hgb 30.7 pg (27.0-32.0); Mean Corpuscular Volume 102.1 fL (80-94); Mean Platelet Vol. 9.8 fl (6.2-12.0); Monocyte# 0.12 X10^3/uL; Neutrophil # 11.22 X10^3/uL (2.7-7.7); Neutrophil % 96.1 % (47-70); Platelet Count 264 K/mm3 (150-450); RBC Distribution Width CV 17.6 % (11.6-14.6); RBC Distribution Width SD 63.7 fl (35.1-43.9); White Blood Count 11.7 K/mm3 (4.4-11.0)
[2018-12-19 07:27] LABS: POSITIVE COUNT NO; POSITIVE MORPHOLOGY NO
[2018-12-19 07:28] LABS: Differential Indicated SCAN CRITERIA MET; POSITIVE DIFFERENTIAL YES
[2018-12-19 07:39] LABS: Albumin, Serum 2.7 g/dL (3.2-5.0); BUN 33 mg/dL (7-18); BUN/Creat Ratio 7.8 RATIO (10-20); Calcium,Total 7.4 mg/dL (8.5-10.1); Chloride 99 mmol/L (98-107); Creatinine, Serum 4.23 mg/dL (0.70-1.30); EST Glomerular Filtration Rate 15 mL/min (>60); Est Glom Filt Rate - Afr Amer 18 mL/min (>60); Estimated Creatinine Clearance 15.84 ml/min; Glucose 162 mg/dL (74-106); Phosphorus 4.3 mg/dL (2.5-4.9); Potassium 5.2 mmol/L (3.5-5.1); Sodium Level 134 mmol/L (136-145)
[2018-12-19 07:42] LABS: Anisocytosis 1+; Hypochromasia 1+
--- NOTE | 2018-12-19 10:33 | NURSING ---
HOLDING MORNING MEDICATIONS UNTIL AFTER DIALYSIS.
--- NOTE | 2018-12-19 11:53 | DCINST_ITS ---
- Discharge Diagnoses Reason(s) for Visit for Discharge Instructions: Shortness of breath You will use the following diet at home:: Cardiac Your food should be the consistency of: Regular Your liquids should be the consistency of: Regular/Thin Discharge Activity: Return to Normal Activity Additional Instructions: Follow-up with dialysis as already scheduled. Continue to take all your medications as prescribed. Allergies/Adverse Reactions: Allergies irbesartan [From Avapro] Allergy (Severe, Verified 12/18/18 19:12) Blisters zolpidem [From Ambien] Adverse Reaction (Severe, Verified 12/18/18 19:12) made me go crazy, memory loss amoxicillin Adverse Reaction (Intermediate, Verified 12/18/18 19:12) Other TOLERATES ZOSYN PASSES BLOOD IN STOOL metronidazole [From Flagyl] Adverse Reaction (Verified 12/18/18 20:00) Other pt states he got palpitations and nose bleed. Medications to take at Discharge Albuterol Sulfate 2.5 mg IH Q4H PRN 11/13/18 Alprazolam [Xanax] 0.5 mg PO TID PRN 11/13/18 Aspirin E.C. [Ecotrin] 81 mg PO DAILY@0800 11/13/18 Ferric Citrate [Auryxia] 210 mg PO BID 11/13/18 Rosuvastatin Calcium [Crestor] 40 mg PO QHS 11/13/18 Tamsulosin HCl [Flomax] 0.8 mg PO DAILY 11/13/18 hydrALAZINE [Apresoline] 25 mg PO BID 11/13/18 Metoprolol(XL)Succ [Toprol Xl (Beta Kadi)] 100 mg PO BID 12/06/18 Clopidogrel Bisulfate [Plavix] 75 mg PO DAILY 12/18/18 Acetaminophen [Tylenol Tablet] 650 mg PO Q4H PRN PRN tablet 12/19/18 Prednisone [Deltasone] 40 mg PO DAILY #5 tablet 12/19/18 The following prescriptions were given: Prednisone [Deltasone] 40 mg PO DAILY #5 tablet Primary Care Physician: Tania Berger NP-C [Primary Care Provider] - Please follow up with your Primary Care Physician in: within 1-2 weeks Test Results: Test results from this visit will be discussed in further detail at your follow- up appointment, if applicable. Please Follow Up With: Caleb Alaniz MD When: for dialysis as already scheduled Proposed Discharge Date: 12/19/18
--- NOTE | 2018-12-19 12:06 | PCM.PN.BLA ---
Progress Note I saw the patient as he was supposed to come in for follow-up today. The patient's wound appears to be healing very well. There is no bleeding. The leslie and retention sutures were removed. Both fistulas appear well. Patient can follow-up with me in 2 weeks to discuss possible reversal or mucous fistula closure. Patient may resume Plavix. Armen Henderson MD Pager: [facility] [address] [place] [address] [address] [place] [address] Office:
--- NOTE | 2018-12-19 12:08 | PCM.CONS.R ---
Problem List (1) ESRD (end stage renal disease) Status: Chronic Consultation - Renal 12/19/18 PCP/ Referring MD: Requesting physician: Dr Duong Primary care physician: SEUN Poe Reason for Consultation:: ESRD - History of Present Illness History of Present Illness: The patient is a 68 year old M well known to us ESRD on HD MWF schedule. last HD was yesterday felt dyspneic after HD and came in, work up so far is inconclusive HD planned for later today denies any complaints now breathing is close to baseline now - Allergies Allergies: Allergies irbesartan [From Avapro] Allergy (Severe, Verified 12/18/18 19:12) Blisters zolpidem [From Ambien] Adverse Reaction (Severe, Verified 12/18/18 19:12) made me go crazy, memory loss amoxicillin Adverse Reaction (Intermediate, Verified 12/18/18 19:12) Other TOLERATES ZOSYN PASSES BLOOD IN STOOL metronidazole [From Flagyl] Adverse Reaction (Verified 12/18/18 20:00) Other pt states he got palpitations and nose bleed. - Current Medications Current Medications: Current Medications Acetaminophen (Tylenol) 650 mg PO Q4H PRN PRN PRN Reason: PAIN Albuterol/Ipratropium (Duoneb) 3 ml INHALATION Q4H.RT [facility] Last Admin: 12/19/18 10:54 Dose: 3 ml Alprazolam (Xanax) 0.5 mg PO TID PRN PRN Reason: ANXIETY Aspirin (Ecotrin) 81 mg PO DAILY@0800 [facility] Atorvastatin Calcium (Lipitor) 80 mg PO QHS [facility] Clopidogrel Bisulfate (Plavix) 75 mg PO DAILY [facility] Heparin Sodium (Porcine) (Heparin Na) 5,000 unit SC Q8 [facility] Last Admin: 12/19/18 05:05 Dose: Not Given Hydralazine HCl (Apresoline) 25 mg PO BID [facility] Magnesium Hydroxide (Milk Of Magnesia) 30 ml PO DAILY PRN PRN PRN Reason: Constipation Methylprednisolone (Solu-Medrol) 40 mg IV Q8H [facility] Last Admin: 12/19/18 10:31 Dose: 40 mg Metoprolol Succinate (Toprol Xl (Beta Kadi)) 100 mg PO BID [facility] Sevelamer Carbonate (Renvela) 1,600 mg PO TIDCM JAIME Sodium Chloride () 5 - 15 ml IV UD PRN PRN Reason: SALINE FLUSH Last Admin: 12/19/18 01:42 Dose: 15 ml Tamsulosin HCl (Flomax) 0.8 mg PO DAILY [facility] - Past Medical History Past Medical History (Chronic Problems): Chronic Problems (Last Updated 12/08/18 @ 11:30 by Amadou Shane MD) ESRD (end stage renal disease) (Chronic) History of non-ST elevation myocardial infarction (NSTEMI) (Chronic 01/21/11) History of right and left heart catheterization (Chronic 05/24/18) Patent NICHOLAS to LAD, SVG to 1st OM and SVG to RCA. Elevated right heart pressures, significant Diastolic dysfunction per cath done @ [facility], Dr. Barrientos Stented coronary artery (Chronic) 2003, JASON to circumflex ; 10/13/2009 tsfer from [facility] to [facility], total of 5 bare metal stents to RCA per Dr. Barrientos @ [facility]: 3.5 X 18 Closing Machine Operator, followed distally by 3.0 X12 Closing Machine Operator to distal RCA;3.5 X 15 Closing Machine Operator, followed proximally by 4.0 X 18 Closing Machine Operator to Mid RCA; 4.0 X 18 Closing Machine Operator to Proximal RCA S/P CABG x 3 (Chronic 01/26/11) [facility] per Dr. Osito Hernandez: NICHOLAS to LAD, reverse SVG to OMbranch of CX, reverse SVG to PDA of RCA. PDA endarterectomy. Status post peripheral artery angioplasty with insertion of stent (Chronic ~2010) Right common iliac, [facility] Atherosclerotic heart disease of [place] coronary artery without angina pectoris (Chronic) 2003, JASON to circumflex ; 10/10/2009 tsfer from [facility] to [facility], total of 5 bare metal stents to RCA; CABG X 3 vessels @ [facility] 01/31/2011 (critical left main and restenosis of RCA stents) Diastolic CHF (Chronic) HLD (hyperlipidemia) (Chronic) HTN (hypertension) (Chronic) PAD (peripheral artery disease) (Chronic) COPD (chronic obstructive pulmonary disease) (Chronic) Tobacco dependence (Chronic) Anemia (Chronic) BPH (benign prostatic hyperplasia) (Chronic) - Past Surgical History Surgical History: coronary bypass surgery, tonsillectomy - Social History Smoking Status: Current some day smoker Alcohol: Occasional Drugs: None - Family History Maternal Family History: Family History (Last Reviewed 11/13/18 @ 12:56 by Manoj Christensen MD) Father CAD (coronary artery disease) Hypertension Kidney disease CVA (cerebral vascular accident) Other Cancer History Items: Heart Disease Paternal Family History: Family History (Last Reviewed 11/13/18 @ 12:56 by Manoj Christensen MD) Father CAD (coronary artery disease) Hypertension Kidney disease CVA (cerebral vascular accident) Other Cancer History Items: Heart Disease Review of Systems Constitutional: Denies: Chills, Fever, Weight Change HEENT: Denies: Head Aches, Sinus Congestion, Sinus Drainage Cardiovascular: Denies: Chest Pain, Palpitations Respiratory: Denies: Cough, Shortness of breath at rest, Sputum production Gastrointestinal: Denies: Abdominal Pain, Nausea, Vomiting Genitourinary: Denies: Dysuria Musculoskeletal: Denies: Joint Pain, Joint Tenderness Skin: Denies: Rash, Wounds Neurological: Denies: Numbness, Tingling, Focal weakness Psychiatric: Denies: Anxiety, Depression, Homicidal Ideations, Suicidal Ideations Hematologic/ Lymphatic: Denies: Easy Bruising, Easy Bleeding - Physical Exam General: Alert, Oriented x3, Cooperative HEENT: Atraumatic, PERRLA, EOMI, Normocephalic Neck: Supple, No JVD, Negative Carotid Bruits Lungs: Clear to auscultation, Normal air movement Cardiovascular: Regular rate, No murmurs Abdomen: Bowel Sounds Present, Soft, Non Tender Extremities: No edema, Capillary Refill Less than 3 Seconds Skin: No rashes, No breakdown Musculoskeletal: No Tenderness to Palpation of Joints or Extremities Neurological: Cranial nerves II-XII grossly intact Psych/Mental Status: Normal Affect, Appropriate Vital Signs Temp Pulse Resp BP Pulse Ox 98.1 F 84 16 144/58 H 98 12/19/18 10:00 12/19/18 11:49 12/19/18 10:54 12/19/18 10:00 12/19/18 10:00 Oxygen Flow Rate (L/min) 2 Oxygen Delivery Method Nasal Cannula Weight: 73.1 kg Body Mass Index (BMI) 25.2 Finger Stick Blood Glucose 200 Intake and Output for Last 24 Hours 12/17/18 12/18/18 12/19/18 23:59 23:59 23:59 Intake Total 710 / 710 Output Total 225 / 225 Balance 485 / 485 Microbiology Past 72 Hours 12/18/18 19:40 Respiratory Panel (PCR) - Final Mucosa - Nasopharyngeal 12/18/18 19:40 Influenza Types A,B Direct FA (ESA) - Final Mucosa - Nasopharyngeal Laboratory Tests Past 24 Hrs 12/18/18 12/18/18 12/18/18 19:45 19:45 19:45 WBC 12.6 H RBC 3.21 L Hgb 9.9 L Hct 31.4 L MCV 97.8 H MCH 30.8 MCHC 31.5 L RDW 17.3 H RDW Differential 61.5 H Plt Count 282 MPV 9.9 Immature Gran % (Auto) 0.200 Neut % (Auto) 80.3 H Lymph % (Auto) 9.2 L [place] % (Auto) 9.6 Eos % (Auto) 0.6 Baso % (Auto) 0.1 Absolute Neuts (auto) 10.1 H Absolute Lymphs (auto) 1.16 Total Counted Not Reportable Hypochromasia Anisocytosis Sodium 136 Potassium 3.3 L Chloride 98 Carbon Dioxide 26.0 Anion Gap 12 BUN 23 H Creatinine 3.07 H Estim Creat Clear Calc 21.83 Est GFR (MDRD) Af Amer 26 L Est GFR (MDRD) Non-Af 22 L BUN/Creatinine Ratio 7.5 L Glucose 89 Lactic Acid 3.0 H Calcium 8.1 L Phosphorus Troponin I 0.049 H Albumin 12/19/18 12/19/18 12/19/18 00:45 06:57 06:57 WBC 11.7 H RBC 2.90 L Hgb 8.9 L Hct 29.6 L MCV 102.1 H MCH 30.7 MCHC 30.1 L RDW 17.6 H RDW Differential 63.7 H Plt Count 264 MPV 9.8 Immature Gran % (Auto) 0.300 Neut % (Auto) 96.1 H Lymph % (Auto) 2.6 L [place] % (Auto) 1.0 Eos % (Auto) 0.0 Baso % (Auto) 0.0 Absolute Neuts (auto) 11.2 H Absolute Lymphs (auto) 0.30 L Total Counted Not Reportable Hypochromasia 1+ Anisocytosis 1+ Sodium 134 L Potassium 5.2 H Chloride 99 Carbon Dioxide 27.0 Anion Gap BUN 33 H Creatinine 4.23 H Estim Creat Clear Calc 15.84 Est GFR (MDRD) Af Amer 18 L Est GFR (MDRD) Non-Af 15 L BUN/Creatinine Ratio 7.8 L Glucose 162 H Lactic Acid 2.0 Calcium 7.4 L Phosphorus 4.3 Troponin I Albumin 2.7 L Assessment/Plan All Active Problems (Last Updated 12/08/18 @ 11:30 by Amadou Shane MD) Hyperkalemia (Acute) Colonic ischemia (Acute) ESRD. HD today. ok for dc after HD today Dyspnea. etiology unclear. CTA negative. CXR is completely clear. ? anxiety component
[2018-12-19] MEDS: Acetaminophen 325 MG Tablet 650 MG PO (12:14)
--- NOTE | 2018-12-19 13:31 | NURSING ---
Ileostomy appliance changed. stoma is beefy red. measures approx 1 1/8 and is oval in shape. peristomal skin is intact. cleansed with soap and water. pat dry. applied a flat 2 piece [place] appliance with an [place] ring. pt states she has been changing the appliance at home. supplies did arrive at home. denies concerns or questions.
--- NOTE | 2018-12-19 14:28 | PCM.DC.SUM ---
<Haven Carlson - Last Filed: 12/19/18 14:42> Discharge Date and Diagnosis Date of Admission: 12/18/18 Date of Discharge: 12/19/18 - Primary Discharge Diagnosis 1. Acute on chronic hypoxic respiratory insufficiency secondary to acute on chronic COPD with exacerbation 2. End-stage renal disease 3. Recent colonic ischemia status post surgery with colostomy placement 4. Lactic acidosis, infectious etiology ruled out 5. Hypokalemia 6. Chronic diastolic CHF 7. CAD status post CABG 8. Hypertension 9. BPH - Secondary Discharge Diagnosis Chronic Problems (Last Updated 12/08/18 @ 11:30 by Amadou Shane MD) ESRD (end stage renal disease) (Chronic) History of non-ST elevation myocardial infarction (NSTEMI) (Chronic 01/21/11) History of right and left heart catheterization (Chronic 05/24/18) Patent NICHOLAS to LAD, SVG to 1st OM and SVG to RCA. Elevated right heart pressures, significant Diastolic dysfunction per cath done @ [facility], Dr. Barrientos Stented coronary artery (Chronic) 2003, JASON to circumflex ; 10/13/2009 tsfer from [facility] to [facility], total of 5 bare metal stents to RCA per Dr. Barrientos @ [facility]: 3.5 X 18 Packing And Stamping Machine Operator, followed distally by 3.0 X12 Packing And Stamping Machine Operator to distal RCA;3.5 X 15 Packing And Stamping Machine Operator, followed proximally by 4.0 X 18 Packing And Stamping Machine Operator to Mid RCA; 4.0 X 18 Packing And Stamping Machine Operator to Proximal RCA S/P CABG x 3 (Chronic 01/26/11) [facility] per Dr. Osito Hernandez: NICHOLAS to LAD, reverse SVG to OMbranch of CX, reverse SVG to PDA of RCA. PDA endarterectomy. Status post peripheral artery angioplasty with insertion of stent (Chronic ~2010) Right common iliac, [facility] Atherosclerotic heart disease of [place] coronary artery without angina pectoris (Chronic) 2003, JASON to circumflex ; 10/10/2009 tsfer from [facility] to [facility], total of 5 bare metal stents to RCA; CABG X [address] [facility] 01/31/2011 (critical left main and restenosis of RCA stents) Diastolic CHF (Chronic) HLD (hyperlipidemia) (Chronic) HTN (hypertension) (Chronic) PAD (peripheral artery disease) (Chronic) COPD (chronic obstructive pulmonary disease) (Chronic) Tobacco dependence (Chronic) Anemia (Chronic) BPH (benign prostatic hyperplasia) (Chronic) Hospital Course and Treatment Imaging Results: Diagnostic Data Chest X-Ray 12/18/18 20:00 IMPRESSION: Minimal left costophrenic angle effusion versus atelectatic change with no large focal consolidation. Electronically Signed: Luis DuboisDO at 20:12 EST , Service support , Chest CTA 12/18/18 20:41 IMPRESSION: 1. Diffuse emphysematous changes with no evidence of pulmonary embolism or aortic dissection. Moderate right pleural effusion is present. Electronically Signed: Luis DuboisDO at 21:44 EST , Service support , Consultations 12/19/18 01:16 Consult: Onc/Wound/table games supervisor Routine Comment: abd wound and ostomy care Dr. Alaniz- Nephrology Operations: None Procedures: Dialysis Summary of Care Provided: The patient is a 68 year old M admitted 12/18/18 due to shortness of breath. He has a past medical history of end-stage renal disease on hemodialysis, COPD, CAD status post CABG x3, PAD, hypertension, hyperlipidemia, chronic diastolic CHF, BPH and recent abdominal surgery for colonic ischemia with colostomy placement. Patient noted to have acute on chronic hypoxic respiratory insufficiency due to suspected acute exacerbation of chronic COPD. He is on baseline 2 L nasal cannula oxygen. CTA negative for PE, showed diffuse emphysematous changes with moderate right pleural effusion. IV Solu-Medrol during admission with prednisone taper at discharge. Respiratory panel negative. Patient denies further shortness of breath. Dr. Alaniz consulted, patient underwent dialysis prior to discharge. He will continue dialysis on his Tuesday, Tuesday, Tuesday schedule. Patient had recent colonic ischemia with colostomy placement. Abdominal wounds do not appear infected. Dr. Henderson saw patient during admission given he was to have a follow-up appointment in office today. Liliana and sutures removed. Lactic acid initially elevated at 3.0. Repeat lactic acid 2.0. Infectious etiology ruled out. Patient noted to have hypokalemia on admission which was replaced per protocol. Other chronic medical conditions as noted above are stable at this time. Patient will follow up with primary care physician in 1 week. Follow-up with nephrology as scheduled. General: Alert, Oriented x3, Cooperative, No apparent distress HEENT: Atraumatic, PERRLA, EOMI, Normocephalic Oral: Moist Mucosa Neck: Supple, No JVD, Negative Carotid Bruits Lungs: Clear to auscultation, diminished Cardiovascular: Regular rate, Normal S1, Normal S2, No murmurs Abdomen: Bowel Sounds Present, - - colostomy bag in place; surgical dressing is clean and dry Extremities: No clubbing, No cyanosis, No edema, Capillary Refill Less than 3 Seconds Skin: No rashes, No breakdown Musculoskeletal: No Tenderness to Palpation of Joints or Extremities Lymphatic: No Cervical, Supraclavicular, or Inguinal Adenopathy Neurological: Cranial nerves II-XII grossly intact, Neuro grossly intact Psych/Mental Status: Normal Affect, Appropriate Patient seen and examined prior to discharge. Physical assessment as noted above. Patient is stable for discharge with follow up recommendations as noted above. This patient was seen by SEUN Obregon under the supervision of Dr. Duong. - Physical Exam Vital Signs Temp Pulse Resp BP Pulse Ox 98.1 F 84 16 144/58 H 98 12/19/18 10:00 12/19/18 11:49 12/19/18 10:54 12/19/18 10:00 12/19/18 10:00 Oxygen Flow Rate (L/min) 2 Oxygen Delivery Method Nasal Cannula Weight: 161 lb 2.526 oz Body Mass Index (BMI) 25.2 Finger Stick Blood Glucose 200 Intake and Output for Last 24 Hours 12/17/18 12/18/18 12/19/18 23:59 23:59 23:59 Intake Total 710 / 710 Output Total 225 / 225 Balance 485 / 485 Microbiology Past 72 Hours 12/18/18 19:40 Respiratory Panel (PCR) - Final Mucosa - Nasopharyngeal 12/18/18 19:40 Influenza Types A,B Direct FA (ESA) - Final Mucosa - Nasopharyngeal Laboratory Tests Past 24 Hrs 12/18/18 12/18/18 12/18/18 19:45 19:45 19:45 WBC 12.6 H RBC 3.21 L Hgb 9.9 L Hct 31.4 L MCV 97.8 H MCH 30.8 MCHC 31.5 L RDW 17.3 H RDW Differential 61.5 H Plt Count 282 MPV 9.9 Immature Gran % (Auto) 0.200 Neut % (Auto) 80.3 H Lymph % (Auto) 9.2 L [place] % (Auto) 9.6 Eos % (Auto) 0.6 Baso % (Auto) 0.1 Absolute Neuts (auto) 10.1 H Absolute Lymphs (auto) 1.16 Total Counted Not Reportable Hypochromasia Anisocytosis Sodium 136 Potassium 3.3 L Chloride 98 Carbon Dioxide 26.0 Anion Gap 12 BUN 23 H Creatinine 3.07 H Estim Creat Clear Calc 21.83 Est GFR (MDRD) Af Amer 26 L Est GFR (MDRD) Non-Af 22 L BUN/Creatinine Ratio 7.5 L Glucose 89 Lactic Acid 3.0 H Calcium 8.1 L Phosphorus Troponin I 0.049 H Albumin 12/19/18 12/19/18 12/19/18 00:45 06:57 06:57 WBC 11.7 H RBC 2.90 L Hgb 8.9 L Hct 29.6 L MCV 102.1 H MCH 30.7 MCHC 30.1 L RDW 17.6 H RDW Differential 63.7 H Plt Count 264 MPV 9.8 Immature Gran % (Auto) 0.300 Neut % (Auto) 96.1 H Lymph % (Auto) 2.6 L [place] % (Auto) 1.0 Eos % (Auto) 0.0 Baso % (Auto) 0.0 Absolute Neuts (auto) 11.2 H Absolute Lymphs (auto) 0.30 L Total Counted Not Reportable Hypochromasia 1+ Anisocytosis 1+ Sodium 134 L Potassium 5.2 H Chloride 99 Carbon Dioxide 27.0 Anion Gap BUN 33 H Creatinine 4.23 H Estim Creat Clear Calc 15.84 Est GFR (MDRD) Af Amer 18 L Est GFR (MDRD) Non-Af 15 L BUN/Creatinine Ratio 7.8 L Glucose 162 H Lactic Acid 2.0 Calcium 7.4 L Phosphorus 4.3 Troponin I Albumin 2.7 L Discharge Diet: Low fat/ Low Cholesterol Discharge Activity: Return to Normal Activity Home Medications: Medications to take at Discharge Albuterol Sulfate 2.5 mg IH Q4H PRN 11/13/18 Alprazolam [Xanax] 0.5 mg PO TID PRN 11/13/18 Aspirin E.C. [Ecotrin] 81 mg PO DAILY@0800 11/13/18 Ferric Citrate [Auryxia] 210 mg PO BID 11/13/18 Rosuvastatin Calcium [Crestor] 40 mg PO QHS 11/13/18 Tamsulosin HCl [Flomax] 0.8 mg PO DAILY 11/13/18 hydrALAZINE [Apresoline] 25 mg PO BID 11/13/18 Metoprolol(XL)Succ [Toprol Xl (Beta Kadi)] 100 mg PO BID 12/06/18 Clopidogrel Bisulfate [Plavix] 75 mg PO DAILY 12/18/18 Acetaminophen [Tylenol Tablet] 650 mg PO Q4H PRN PRN tablet 12/19/18 Prednisone [Deltasone] 40 mg PO DAILY #5 tablet 12/19/18 Following Prescrptions Were Given to Patient: Prednisone [Deltasone] 40 mg PO DAILY #5 tablet Primary Care Physician: Tania Berger NP-C [Primary Care Provider] - Please follow up with your Primary Care Physician in: within 1-2 weeks Please Follow Up With: Caleb Alaniz MD When: for dialysis as already scheduled Disposition: Home Minutes spent on discharge:: 35 Patient Condition:: Stable Medical Necessity - Tobacco Use Smoking Status: Current some day smoker Tobacco Use: Cigarettes Meaningful Use Info Meaningful Use Diagnoses (Choose all that apply): None applicable <[place] - Last Filed: 12/20/18 20:02> Discharge Date and Diagnosis - Secondary Discharge Diagnosis Chronic Problems (Last Updated 12/08/18 @ 11:30 by Amadou Shane MD) ESRD (end stage renal disease) (Chronic) History of non-ST elevation myocardial infarction (NSTEMI) (Chronic 01/21/11) History of right and left heart catheterization (Chronic 05/24/18) Patent NICHOLAS to LAD, SVG to 1st OM and SVG to RCA. Elevated right heart pressures, significant Diastolic dysfunction per cath done @ [facility], Dr. Barrientos Stented coronary artery (Chronic) 2003, JASON to circumflex ; 10/13/2009 tsfer from [facility] to [facility], total of 5 bare metal stents to RCA per Dr. Barrientos @ [facility]: 3.5 X 18 Packing And Stamping Machine Operator, followed distally by 3.0 X12 Packing And Stamping Machine Operator to distal RCA;3.5 X 15 Packing And Stamping Machine Operator, followed proximally by 4.0 X 18 Packing And Stamping Machine Operator to Mid RCA; 4.0 X 18 Packing And Stamping Machine Operator to Proximal RCA S/P CABG x 3 (Chronic 01/26/11) [facility] per Dr. Osito Hernandez: NICHOLAS to LAD, reverse SVG to OMbranch of CX, reverse SVG to PDA of RCA. PDA endarterectomy. Status post peripheral artery angioplasty with insertion of stent (Chronic ~2010) Right common iliac, [facility] Atherosclerotic heart disease of [place] coronary artery without angina pectoris (Chronic) 2003, JASON to circumflex ; 10/10/2009 tsfer from [facility] to [facility], total of 5 bare metal stents to RCA; CABG X [address] [facility] 01/31/2011 (critical left main and restenosis of RCA stents) Diastolic CHF (Chronic) HLD (hyperlipidemia) (Chronic) HTN (hypertension) (Chronic) PAD (peripheral artery disease) (Chronic) COPD (chronic obstructive pulmonary disease) (Chronic) Tobacco dependence (Chronic) Anemia (Chronic) BPH (benign prostatic hyperplasia) (Chronic) Hospital Course and Treatment Consultations 12/19/18 01:16 Consult: Onc/Wound/table games supervisor Routine Comment: abd wound and ostomy care Summary of Care Provided: The patient is a 68 year old M with PMHx of ESRD on HD, CAD s/p CABG, recent abdominal surgery for colonic ischemia, s/p colostomy who was admitted with progressive SOB secondary to acute on chronic respiratory failure secondary to Acute COPD exacerbation. Workup in ED was negative for PE. CTA chest showed diffuse emphysematous changes with moderate right pleural effusion. General surgery and nephrology were consulted. Abdominal wall sutures were removed with no issues. He had hypokalemia that was replaced. Patient improved remarkedly on IV Solumedrol. He was discharged on prednisone. He had dialysis on the day of discharge. Subjective: Patient was seen and examined on the day of discharge. He feels well. No worsening SOB, chest pain or dizziness. Will be dialysis on day of discharge. - Physical Exam General: Alert, Oriented x3, Cooperative, No apparent distress HEENT: Atraumatic, PERRLA, EOMI, Normocephalic Oral: Moist Mucosa Neck: Supple Lungs: Clear to auscultation, Normal air movement Cardiovascular: Regular rate, Regular Rhythm, Normal S1, Normal S2, No murmurs Abdomen: Bowel Sounds Present, Soft, Non Tender, - - colostomy intact with stool in bag, incision is clean and dry Extremities: No edema, Capillary Refill Less than 3 Seconds Skin: No rashes, No breakdown Musculoskeletal: No Tenderness to Palpation of Joints or Extremities Neurological: Cranial nerves II-XII grossly intact Psych/Mental Status: Normal Affect, Appropriate Vital Signs Temp Pulse Resp BP Pulse Ox 97.8 F 94 16 160/92 H 97 12/19/18 17:20 12/19/18 17:20 12/19/18 17:20 12/19/18 17:20 12/19/18 17:20 Oxygen Flow Rate (L/min) 2 Oxygen Delivery Method Nasal Cannula Weight: 73.1 kg Body Mass Index (BMI) 25.2 Finger Stick Blood Glucose 200 Intake and Output for Last 24 Hours 12/18/18 12/19/18 12/20/18 23:59 23:59 23:59 Intake Total 710 / 710 Output Total 2024 / 2024 Balance -1315 / -1315 Microbiology Past 72 Hours 12/18/18 19:40 Respiratory Panel (PCR) - Final Mucosa - Nasopharyngeal 12/18/18 19:40 Influenza Types A,B Direct FA (ESA) - Final Mucosa - Nasopharyngeal Code Visit Inpatient E&M: 29087 Disch Hosp
--- NOTE | 2018-12-19 14:33 | DS.PCM_ITS ---
<Haven Carlson - Last Filed: 12/19/18 14:42> Discharge Date and Diagnosis Date of Admission: 12/18/18 Date of Discharge: 12/19/18 - Primary Discharge Diagnosis 1. Acute on chronic hypoxic respiratory insufficiency secondary to acute on chronic COPD with exacerbation 2. End-stage renal disease 3. Recent colonic ischemia status post surgery with colostomy placement 4. Lactic acidosis, infectious etiology ruled out 5. Hypokalemia 6. Chronic diastolic CHF 7. CAD status post CABG 8. Hypertension 9. BPH - Secondary Discharge Diagnosis Chronic Problems (Last Updated 12/08/18 @ 11:30 by Amadou Shane MD) ESRD (end stage renal disease) (Chronic) History of non-ST elevation myocardial infarction (NSTEMI) (Chronic 01/21/11) History of right and left heart catheterization (Chronic 05/24/18) Patent NICHOLAS to LAD, SVG to 1st OM and SVG to RCA. Elevated right heart pressures, significant Diastolic dysfunction per cath done @ [facility], Dr. Barrientos Stented coronary artery (Chronic) 2003, JASON to circumflex ; 10/13/2009 tsfer from [facility] to [facility], total of 5 bare metal stents to RCA per Dr. Barrientos @ [facility]: 3.5 X 18 Slitter And Cutter Operator, followed distally by 3.0 X12 Slitter And Cutter Operator to distal RCA;3.5 X 15 Slitter And Cutter Operator, followed proximally by 4.0 X 18 Slitter And Cutter Operator to Mid RCA; 4.0 X 18 Slitter And Cutter Operator to Proximal RCA S/P CABG x 3 (Chronic 01/26/11) [facility] per Dr. Osito Hernandez: NICHOLAS to LAD, reverse SVG to OMbranch of CX, reverse SVG to PDA of RCA. PDA endarterectomy. Status post peripheral artery angioplasty with insertion of stent (Chronic ~2010) Right common iliac, [facility] Atherosclerotic heart disease of [place] coronary artery without angina pectoris (Chronic) 2003, JASON to circumflex ; 10/10/2009 tsfer from [facility] to [facility], total of 5 bare metal stents to RCA; CABG X 3 vessels @ [facility] 01/31/2011 (critical left main and restenosis of RCA stents) Diastolic CHF (Chronic) HLD (hyperlipidemia) (Chronic) HTN (hypertension) (Chronic) PAD (peripheral artery disease) (Chronic) COPD (chronic obstructive pulmonary disease) (Chronic) Tobacco dependence (Chronic) Anemia (Chronic) BPH (benign prostatic hyperplasia) (Chronic) Hospital Course and Treatment Imaging Results: Diagnostic Data Chest X-Ray 12/18/18 20:00 IMPRESSION: Minimal left costophrenic angle effusion versus atelectatic change with no large focal consolidation. Electronically Signed: Luis DuboisDO at 20:12 EST , Service support , Chest CTA 12/18/18 20:41 IMPRESSION: 1. Diffuse emphysematous changes with no evidence of pulmonary embolism or aortic dissection. Moderate right pleural effusion is present. Electronically Signed: Luis DuboisDO at 21:44 EST , Service support , Consultations 12/19/18 01:16 Consult: Onc/Wound/upward bound director Routine Comment: abd wound and ostomy care Dr. Alaniz- Nephrology Operations: None Procedures: Dialysis Summary of Care Provided: The patient is a 68 year old M admitted 12/18/18 due to shortness of breath. He has a past medical history of end-stage renal disease on hemodialysis, COPD, CAD status post CABG x3, PAD, hypertension, hyperlipidemia, chronic diastolic CHF, BPH and recent abdominal surgery for colonic ischemia with colostomy placement. Patient noted to have acute on chronic hypoxic respiratory insufficiency due to suspected acute exacerbation of chronic COPD. He is on baseline 2 L nasal cannula oxygen. CTA negative for PE, showed diffuse emphysematous changes with moderate right pleural effusion. IV Solu-Medrol during admission with prednisone taper at discharge. Respiratory panel negative. Patient denies further shortness of breath. Dr. Alaniz consulted, patient underwent dialysis prior to discharge. He will continue dialysis on his Tuesday, Tuesday, Tuesday schedule. Patient had recent colonic ischemia with colostomy placement. Abdominal wounds do not appear infected. Dr. Henderson saw patient during admission given he was to have a follow-up appointment in office today. Liliana and sutures removed. Lactic acid initially elevated at 3.0. Repeat lactic acid 2.0. Infectious etiology ruled out. Patient noted to have hypokalemia on admission which was replaced per protocol. Other chronic medical conditions as noted above are stable at this time. Patient will follow up with primary care physician in 1 week. Follow-up with nephrology as scheduled. General: Alert, Oriented x3, Cooperative, No apparent distress HEENT: Atraumatic, PERRLA, EOMI, Normocephalic Oral: Moist Mucosa Neck: Supple, No JVD, Negative Carotid Bruits Lungs: Clear to auscultation, diminished Cardiovascular: Regular rate, Normal S1, Normal S2, No murmurs Abdomen: Bowel Sounds Present, - - colostomy bag in place; surgical dressing is clean and dry Extremities: No clubbing, No cyanosis, No edema, Capillary Refill Less than 3 Seconds Skin: No rashes, No breakdown Musculoskeletal: No Tenderness to Palpation of Joints or Extremities Lymphatic: No Cervical, Supraclavicular, or Inguinal Adenopathy Neurological: Cranial nerves II-XII grossly intact, Neuro grossly intact Psych/Mental Status: Normal Affect, Appropriate Patient seen and examined prior to discharge. Physical assessment as noted above. Patient is stable for discharge with follow up recommendations as noted above. This patient was seen by SEUN Obregon under the supervision of Dr. Duong. - Physical Exam Vital Signs Temp Pulse Resp BP Pulse Ox 98.1 F 84 16 144/58 H 98 12/19/18 10:00 12/19/18 11:49 12/19/18 10:54 12/19/18 10:00 12/19/18 10:00 Oxygen Flow Rate (L/min) 2 Oxygen Delivery Method Nasal Cannula Weight: 161 lb 2.526 oz Body Mass Index (BMI) 25.2 Finger Stick Blood Glucose 200 Intake and Output for Last 24 Hours 12/17/18 12/18/18 12/19/18 23:59 23:59 23:59 Intake Total 710 / 710 Output Total 225 / 225 Balance 485 / 485 Microbiology Past 72 Hours 12/18/18 19:40 Respiratory Panel (PCR) - Final Mucosa - Nasopharyngeal 12/18/18 19:40 Influenza Types A,B Direct FA (ESA) - Final Mucosa - Nasopharyngeal Laboratory Tests Past 24 Hrs 12/18/18 12/18/18 12/18/18 19:45 19:45 19:45 WBC 12.6 H RBC 3.21 L Hgb 9.9 L Hct 31.4 L MCV 97.8 H MCH 30.8 MCHC 31.5 L RDW 17.3 H RDW Differential 61.5 H Plt Count 282 MPV 9.9 Immature Gran % (Auto) 0.200 Neut % (Auto) 80.3 H Lymph % (Auto) 9.2 L [place] % (Auto) 9.6 Eos % (Auto) 0.6 Baso % (Auto) 0.1 Absolute Neuts (auto) 10.1 H Absolute Lymphs (auto) 1.16 Total Counted Not Reportable Hypochromasia Anisocytosis Sodium 136 Potassium 3.3 L Chloride 98 Carbon Dioxide 26.0 Anion Gap 12 BUN 23 H Creatinine 3.07 H Estim Creat Clear Calc 21.83 Est GFR (MDRD) Af Amer 26 L Est GFR (MDRD) Non-Af 22 L BUN/Creatinine Ratio 7.5 L Glucose 89 Lactic Acid 3.0 H Calcium 8.1 L Phosphorus Troponin I 0.049 H Albumin 12/19/18 12/19/18 12/19/18 00:45 06:57 06:57 WBC 11.7 H RBC 2.90 L Hgb 8.9 L Hct 29.6 L MCV 102.1 H MCH 30.7 MCHC 30.1 L RDW 17.6 H RDW Differential 63.7 H Plt Count 264 MPV 9.8 Immature Gran % (Auto) 0.300 Neut % (Auto) 96.1 H Lymph % (Auto) 2.6 L [place] % (Auto) 1.0 Eos % (Auto) 0.0 Baso % (Auto) 0.0 Absolute Neuts (auto) 11.2 H Absolute Lymphs (auto) 0.30 L Total Counted Not Reportable Hypochromasia 1+ Anisocytosis 1+ Sodium 134 L Potassium 5.2 H Chloride 99 Carbon Dioxide 27.0 Anion Gap BUN 33 H Creatinine 4.23 H Estim Creat Clear Calc 15.84 Est GFR (MDRD) Af Amer 18 L Est GFR (MDRD) Non-Af 15 L BUN/Creatinine Ratio 7.8 L Glucose 162 H Lactic Acid 2.0 Calcium 7.4 L Phosphorus 4.3 Troponin I Albumin 2.7 L Discharge Diet: Low fat/ Low Cholesterol Discharge Activity: Return to Normal Activity Home Medications: Medications to take at Discharge Albuterol Sulfate 2.5 mg IH Q4H PRN 11/13/18 Alprazolam [Xanax] 0.5 mg PO TID PRN 11/13/18 Aspirin E.C. [Ecotrin] 81 mg PO DAILY@0800 11/13/18 Ferric Citrate [Auryxia] 210 mg PO BID 11/13/18 Rosuvastatin Calcium [Crestor] 40 mg PO QHS 11/13/18 Tamsulosin HCl [Flomax] 0.8 mg PO DAILY 11/13/18 hydrALAZINE [Apresoline] 25 mg PO BID 11/13/18 Metoprolol(XL)Succ [Toprol Xl (Beta Kadi)] 100 mg PO BID 12/06/18 Clopidogrel Bisulfate [Plavix] 75 mg PO DAILY 12/18/18 Acetaminophen [Tylenol Tablet] 650 mg PO Q4H PRN PRN tablet 12/19/18 Prednisone [Deltasone] 40 mg PO DAILY #5 tablet 12/19/18 Following Prescrptions Were Given to Patient: Prednisone [Deltasone] 40 mg PO DAILY #5 tablet Primary Care Physician: Tania Berger NP-C [Primary Care Provider] - Please follow up with your Primary Care Physician in: within 1-2 weeks Please Follow Up With: Caleb Alaniz MD When: for dialysis as already scheduled Disposition: Home Minutes spent on discharge:: 35 Patient Condition:: Stable Medical Necessity - Tobacco Use Smoking Status: Current some day smoker Tobacco Use: Cigarettes Meaningful Use Info Meaningful Use Diagnoses (Choose all that apply): None applicable <[place] - Last Filed: 12/20/18 20:02> Discharge Date and Diagnosis - Secondary Discharge Diagnosis Chronic Problems (Last Updated 12/08/18 @ 11:30 by Amadou Shane MD) ESRD (end stage renal disease) (Chronic) History of non-ST elevation myocardial infarction (NSTEMI) (Chronic 01/21/11) History of right and left heart catheterization (Chronic 05/24/18) Patent NICHOLAS to LAD, SVG to 1st OM and SVG to RCA. Elevated right heart pressures, significant Diastolic dysfunction per cath done @ [facility], Dr. Barrientos Stented coronary artery (Chronic) 2003, JASON to circumflex ; 10/13/2009 tsfer from [facility] to [facility], total of 5 bare metal stents to RCA per Dr. Barrientos @ [facility]: 3.5 X 18 Slitter And Cutter Operator, followed distally by 3.0 X12 Slitter And Cutter Operator to distal RCA;3.5 X 15 Slitter And Cutter Operator, followed proximally by 4.0 X 18 Slitter And Cutter Operator to Mid RCA; 4.0 X 18 Slitter And Cutter Operator to Proximal RCA S/P CABG x 3 (Chronic 01/26/11) [facility] per Dr. Osito Hernandez: NICHOLAS to LAD, reverse SVG to OMbranch of CX, reverse SVG to PDA of RCA. PDA endarterectomy. Status post peripheral artery angioplasty with insertion of stent (Chronic ~2010) Right common iliac, [facility] Atherosclerotic heart disease of [place] coronary artery without angina pectoris (Chronic) 2003, JASON to circumflex ; 10/10/2009 tsfer from [facility] to [facility], total of 5 bare metal stents to RCA; CABG X 3 vessels @ [facility] 01/31/2011 (critical left main and restenosis of RCA stents) Diastolic CHF (Chronic) HLD (hyperlipidemia) (Chronic) HTN (hypertension) (Chronic) PAD (peripheral artery disease) (Chronic) COPD (chronic obstructive pulmonary disease) (Chronic) Tobacco dependence (Chronic) Anemia (Chronic) BPH (benign prostatic hyperplasia) (Chronic) Hospital Course and Treatment Consultations 12/19/18 01:16 Consult: Onc/Wound/upward bound director Routine Comment: abd wound and ostomy care Summary of Care Provided: The patient is a 68 year old M with PMHx of ESRD on HD, CAD s/p CABG, recent abdominal surgery for colonic ischemia, s/p colostomy who was admitted with progressive SOB secondary to acute on chronic respiratory failure secondary to Acute COPD exacerbation. Workup in ED was negative for PE. CTA chest showed diffuse emphysematous changes with moderate right pleural effusion. General surgery and nephrology were consulted. Abdominal wall sutures were removed with no issues. He had hypokalemia that was replaced. Patient improved remarkedly on IV Solumedrol. He was discharged on prednisone. He had dialysis on the day of discharge. Subjective: Patient was seen and examined on the day of discharge. He feels well. No worsening SOB, chest pain or dizziness. Will be dialysis on day of discharge. - Physical Exam General: Alert, Oriented x3, Cooperative, No apparent distress HEENT: Atraumatic, PERRLA, EOMI, Normocephalic Oral: Moist Mucosa Neck: Supple Lungs: Clear to auscultation, Normal air movement Cardiovascular: Regular rate, Regular Rhythm, Normal S1, Normal S2, No murmurs Abdomen: Bowel Sounds Present, Soft, Non Tender, - - colostomy intact with stool in bag, incision is clean and dry Extremities: No edema, Capillary Refill Less than 3 Seconds Skin: No rashes, No breakdown Musculoskeletal: No Tenderness to Palpation of Joints or Extremities Neurological: Cranial nerves II-XII grossly intact Psych/Mental Status: Normal Affect, Appropriate Vital Signs Temp Pulse Resp BP Pulse Ox 97.8 F 94 16 160/92 H 97 12/19/18 17:20 12/19/18 17:20 12/19/18 17:20 12/19/18 17:20 12/19/18 17:20 Oxygen Flow Rate (L/min) 2 Oxygen Delivery Method Nasal Cannula Weight: 73.1 kg Body Mass Index (BMI) 25.2 Finger Stick Blood Glucose 200 Intake and Output for Last 24 Hours 12/18/18 12/19/18 12/20/18 23:59 23:59 23:59 Intake Total 710 / 710 Output Total 2024 / 2024 Balance -1315 / -1315 Microbiology Past 72 Hours 12/18/18 19:40 Respiratory Panel (PCR) - Final Mucosa - Nasopharyngeal 12/18/18 19:40 Influenza Types A,B Direct FA (ESA) - Final Mucosa - Nasopharyngeal Code Visit Inpatient E&M: 21821 Disch Hosp
[2018-12-19] MEDS: Heparin 10,000 UNITS/10 ML Vial IV (17:13)
--- NOTE | 2018-12-19 20:07 | DIALYSIS ---
Hemodialysis complete. 2 hour run, 2k bath. Net fluid removed = 1800 ml. Patient tolerated HD tx well. Right chest CVC: site benign, dressing changed per protocol before start of HD tx. Dressing dry and intact. Lumen flushed with NS, filled to volume with Heparin capped and clamped. Report given to primary RNDb.
== END 2018-12-19 11:50 | disposition home or self-care (01) ==
LOC: ED 23:03 → PCU 23:26
PROVIDERS: Admitting Provider Student in an Organized Health Care Education/Training Program; Emergency Provider Emergency Medicine; Family Provider Nurse Practitioner Family; PCP Nurse Practitioner Family; Referring Provider Student in an Organized Health Care Education/Training Program; Visit Provider Internal Medicine
DX: J44.1 Chronic obstructive pulmonary disease with (acute) exacerbation (principal); R06.89 Other abnormalities of breathing; I13.2 Hypertensive heart and chronic kidney disease with heart failure and with stage 5 chronic kidney disease, or end stage renal disease; N18.6 End stage renal disease; I50.32 Chronic diastolic (congestive) heart failure; I25.10 Atherosclerotic heart disease of native coronary artery without angina pectoris; N40.0 Benign prostatic hyperplasia without lower urinary tract symptoms; E87.2 Acidosis; E78.5 Hyperlipidemia, unspecified; I25.2 Old myocardial infarction; Z99.2 Dependence on renal dialysis; Z95.1 Presence of aortocoronary bypass graft; Z79.899 Other long term (current) drug therapy; Z79.82 Long term (current) use of aspirin; Z79.02 Long term (current) use of antithrombotics/antiplatelets; I73.9 Peripheral vascular disease, unspecified; F17.210 Nicotine dependence, cigarettes, uncomplicated; E87.6 Hypokalemia; Z93.3 Colostomy status; I48.91 Unspecified atrial fibrillation
CPT/HCPCS: 36415; 71045; 71046; 71275; 80048; 80069; 83605; 84484; 85025; 87040; 87633; 87804; 90937; 93005; 94002; 94640; 96374; 96375; 96376; 97161; 97165; 99218; 99285; 99406; J7030; A4216; G0257; G0378

== ENCOUNTER 2018-12-25 17:55 | Emergency (ER) | payer MEDICARE, SELFPAY ==
[2018-12-19 00:37] VITALS: BMI 25.2
[2018-12-25 17:55] VITALS: BP 105/42; PULSE 90; RESP 18; TEMP 36.8; O2SAT 94; BMI 22.9
--- NOTE | 2018-12-25 20:01 | EKG12_ITS ---
Test Reason : Blood Pressure : / mmHG Vent. Rate : 081 BPM Atrial Rate : 081 BPM P-R Int : 200 ms QRS Dur : 078 ms QT Int : 390 ms P-R-T Axes : -06 064 181 degrees QTc Int : 453 ms Sinus rhythm with Premature atrial complexes Left ventricular hypertrophy with repolarization abnormality Abnormal ECG Confirmed by VIKY MONTENEGRO, JOS ([id number]), magazine editor PATSY LINN ([id number]) on 12/28/2018 10:52:27 AM Referred By: DC Confirmed By:JOS SALMON MD
--- NOTE | 2018-12-25 20:07 | RAD_ITS ---
STUDY: X-RAY CHEST REASON FOR EXAM: Male, 68 years old. Weakness TECHNIQUE: Single AP portable view of the chest. COMPARISON: Prior study December 18, 2018 FINDINGS: There is a double-lumen right-sided dialysis catheter with tip projecting over the distal SVC. The lungs are clear and expanded. There is a small left-sided effusion. The heart size is borderline. Status post sternotomy changes are present. Normal mediastinum and justyn. Normal visualized pulmonary arteries. There are calcified plaques of the aortic arch. There are diffuse degenerative changes of the visualized thoracic spine. Normal visualized ribs, clavicles, and shoulders. There is no demonstrated abnormality of the visualized soft tissue structures of the upper abdomen. RAD/Chest 1 View (Portable) IMPRESSION: Right-sided double-lumen dialysis catheter noted with tip projecting over the distal SVC. Borderline heart size. Status post sternotomy. Calcified plaques of the aortic arch. Small left-sided effusion, representing a new interval finding. Electronically Signed: Ranjit Redman MD at 20:52 EDT , Service support ,
[2018-12-25 20:29] VITALS: BP 116/54; PULSE 88; RESP 16; O2SAT 98
[2018-12-25 20:49] LABS: Absolute Lymphocyte Count 0.97 X10^3/ul (0.83-4.51); Absolute Neutrophil Count 8.9 X10^3/uL (2.0-7.7); Basophil# 0.02 X10^3/uL; Basophil% 0.2 % (0-1); Eosinophil# 0.11 X10^3/uL; Hematocrit 29.6 % (40-54); Hemoglobin 9.4 g/dl (13.0-16.5); Lymphocyte # 0.97 X10^3/ul (4.0); Lymphocyte % 8.6 % (19-41); Mean Corp Hgb Conc 31.8 g/gl (32-36); Mean Corpuscular Hgb 30.8 pg (27.0-32.0); Mean Platelet Vol. 10.3 fl (6.2-12.0); Monocyte# 1.27 X10^3/uL; Monocyte% 11.2 % (0-10); Neutrophil # 8.88 X10^3/uL (2.7-7.7); Neutrophil % 78.6 % (47-70); Platelet Count 221 K/mm3 (150-450); RBC Distribution Width CV 16.9 % (11.6-14.6); RBC Distribution Width SD 59.3 fl (35.1-43.9); Red Blood Count 3.05 M/mm3 (4.6-6.2); White Blood Count 11.3 K/mm3 (4.4-11.0)
[2018-12-25 20:50] LABS: POSITIVE COUNT NO; POSITIVE DIFFERENTIAL NO; POSITIVE MORPHOLOGY NO
[2018-12-25 20:54] LABS: Prothrombin Time (Protime)PT. 13.3 SECONDS (11.7-14.9)
[2018-12-25 20:55] LABS: Partial Thromboplast Time 26.2 Seconds (24.1-36.2)
[2018-12-25 21:05] LABS: ALB/GLOB Ratio 0.9 RATIO (0.9-2.4); AST(SGOT) 25 U/L (15-37); Alanine Aminotransfer ALT/SGPT 48 U/L (16-61); Albumin, Serum 3.5 g/dL (3.2-5.0); Alkaline Phosphatase 123 U/L (45-117); Anion Gap 13 (5-15); BUN 39 mg/dL (7-18); BUN/Creat Ratio 9.5 RATIO (10-20); Calcium,Total 8.4 mg/dL (8.5-10.1); Chloride 94 mmol/L (98-107); Creatinine, Serum 4.09 mg/dL (0.70-1.30); EST Glomerular Filtration Rate 16 mL/min (>60); Est Glom Filt Rate - Afr Amer 19 mL/min (>60); Estimated Creatinine Clearance 16.96 ml/min; Globulin 3.9 g/dL (2.2-4.2); Glucose 93 mg/dL (74-106); Potassium 4.1 mmol/L (3.5-5.1); Protein, Total 7.4 g/dL (6.4-8.2); Sodium Level 137 mmol/L (136-145)
[2018-12-25 21:12] LABS: Lactic Acid 1.5 mmol/L (0.4-2.0)
[2018-12-25 21:56] VITALS: BP 105/55; PULSE 83; PULSE 87; RESP 16; TEMP 36.7; O2SAT 98
--- NOTE | 2018-12-25 22:21 | ED.DCSUM_ITS ---
- ER Visit Summary Date of Service: 12/25/18 Chief Complaint: Weakness History of Present Illness: The patient is a 68 M with weakness that started yesterday. This is generalized. Nothing seemed to bring it on or make it worse. Patient had an ileostomy 3 weeks ago. This was done for ischemic colon by Dr. Henderson. Patient believes that he had some blood in the stoma today at dialysis. Patient is denying any abdominal pain. He does have some cough with sputum. He takes aspirin and Plavix but no other blood thinners. Physical Examination: Afebrile and vital signs unremarkable. Alert and oriented. No acute distress. Skin unremarkable. Stoma normal. No active bleeding. Abdomen soft and nontender. Heart regular. Lungs clear. Test Results: EKG showed sinus rhythm at a rate of 81 with PACs. White count 11.3 and hemoglobin 9.4. BUN 39 creatinine 4.09. Coags normal. Troponin normal. Chest x-ray showed postop changes and a small pleural effusion on the left side. Emergency Department Course and Treatment: Patient's workup was as above. Hemoglobin was stable. His only new finding is a small left pleural effusion. I do not believe this explains all of his symptoms. Patient has no signs of sepsis. No signs of bleeding. He was discussed with Dr. Tavares, and she advised starting Protonix and following up in the office. Patient will also follow-up with his PCP. Return for any new or worsening issues. Treatment Plan: As above Disposition: Discharge Impression: 1. Generalized weakness 2. Small left pleural effusion This note was generated with [employer] dictation software. It may contain incorrect words, spelling, and punctuation that were not noted in review of the chart prior to signing ED Disposition - Plan for ED Patient: Referrals: Tania Berger NP-C [Primary Care Provider] -
--- NOTE | 2018-12-25 22:22 | DCINST.ED_ITS ---
ED Disposition - Plan for ED Patient: Instructions: ED Weakness [facility] Prescriptions: Omeprazole Magnesium [Prilosec Otc] 20 mg PO DAILY #30 tablet. Referrals: Tania Berger, MARKETING SERVICES VICE PRESIDENT-C [Primary Care Provider] -
[2018-12-25 22:37] VITALS: BP 129/52; PULSE 89; RESP 22; O2SAT 96
--- NOTE | 2018-12-25 22:40 | ED.RN ---
THIS NURSE REVIEWED D/C INSTRUCTIONS WITH PT. PT VERBALIZED UNDERSTANDING OF INSTRUCTIONS. IV D/C. IV CATHETER INTACT. PT TOLERATED WELL. PT DENIES FURTHER NEEDS OR QUESTIONS AT THIS TIME. PT ASSISTED TO VEHICLE VIA W/C
== END 2018-12-25 22:41 | disposition home or self-care (01) ==
PROVIDERS: Emergency Provider Emergency Medicine; Family Provider Nurse Practitioner Family; PCP Nurse Practitioner Family
DX: R53.1 Weakness (principal); J90 Pleural effusion, not elsewhere classified; I25.10 Atherosclerotic heart disease of native coronary artery without angina pectoris; J44.9 Chronic obstructive pulmonary disease, unspecified; E78.00 Pure hypercholesterolemia, unspecified; K55.9 Vascular disorder of intestine, unspecified; N40.0 Benign prostatic hyperplasia without lower urinary tract symptoms; I25.2 Old myocardial infarction; I13.2 Hypertensive heart and chronic kidney disease with heart failure and with stage 5 chronic kidney disease, or end stage renal disease; N18.6 End stage renal disease; I50.9 Heart failure, unspecified; Z99.2 Dependence on renal dialysis; Z72.0 Tobacco use; Z79.02 Long term (current) use of antithrombotics/antiplatelets; Z79.51 Long term (current) use of inhaled steroids; Z79.82 Long term (current) use of aspirin; Z79.899 Other long term (current) drug therapy
CPT/HCPCS: 36415; 71045; 80053; 83605; 84484; 85025; 85610; 85730; 87040; 93005; 99285; J7030; A4216

== ENCOUNTER 2019-01-23 10:20 | Emergency (ER) | payer MEDICARE, SELFPAY ==
[2019-01-23] VITALS (10 sets, daily range): BP systolic 129–153; BP diastolic 54–79; PULSE 73–88; RESP 13–22; TEMP 36.8–36.9; O2SAT 97–100; BMI 24.7
--- NOTE | 2019-01-23 10:45 | EKG12_ITS ---
Test Reason : Blood Pressure : / mmHG Vent. Rate : 084 BPM Atrial Rate : 084 BPM P-R Int : 224 ms QRS Dur : 094 ms QT Int : 416 ms P-R-T Axes : 000 049 130 degrees QTc Int : 491 ms Sinus rhythm with 1st degree A-V block with Premature atrial complexes Left ventricular hypertrophy with repolarization abnormality Prolonged QT Abnormal ECG Confirmed by VIKY MONTENEGRO, JOS ([id number]), commercial production editor SHIRA HURD ([id number]) on 01/29/2019 4:17:07 PM Referred By: TU/RUTH Confirmed By:JOS SALMON MD
--- NOTE | 2019-01-23 11:04 | RAD_ITS ---
STUDY: X-RAY CHEST REASON FOR EXAM: Male, 68 years old. Chest pain. TECHNIQUE: Single AP portable view of the chest. COMPARISON: Comparison is made with prior study December 25, 2018. FINDINGS: EKG electrodes are seen. A right-sided double lumen catheter is seen with the tip in the proximal portion of the superior vena cava. Hyperinflation. Mild persistent pleural-parenchymal changes at the left lung base although there has been improvement as compared to prior study. Sternal cerclage wires and vascular clips are present from a prior sternotomy and coronary artery bypass graft procedure (CABG). Normal mediastinum and justyn. Normal visualized pulmonary arteries. There is atherosclerotic calcification of the aortic arch with tortuosity. There are diffuse degenerative changes of the visualized thoracic spine. Normal visualized ribs, clavicles, and shoulders. There is no demonstrated abnormality of the visualized soft tissue structures of the upper abdomen. RAD/Chest 1 View (Portable) IMPRESSION: Residual pleural parenchymal changes at the left lung base although there has been improvement as compared to prior study. Electronically Signed: Deven Hensley, at 11:24 EDT , Service support ,
--- NOTE | 2019-01-23 11:07 | ED.VISSUMM ---
- ER Visit Summary Date of Service: 01/23/19 Chief Complaint: Anemia History of Present Illness: The patient is a 68 M with possible anemia. 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 He has been feeling weak. His most recent hemoglobin was 7.8. He was not transfused. He is waiting for an outpatient blood count from yesterday. He was at dialysis today and it was noted that he had some blood in his ostomy, so he was referred to the ED. Patient reports some generalized weakness as well as shortness of breath. Denies chest pain. Denies cough or sputum. Denies fevers. He does take aspirin and Plavix. He also takes Prilosec. His surgeon is Dr. Henderson. Physical Examination: Afebrile and vital signs are unremarkable. Patient is alert and oriented. No acute distress. Skin appears normal in color without pallor or diaphoresis. Heart regular. Lungs clear. Abdomen soft and nontender. No gross blood in his ostomy bag. Test Results: EKG shows sinus rhythm at a rate of 84 with first-degree AV block. PACs noted. UTC 491. No sign of acute ischemia or infarction pattern. Laboratory studies pending. Type and screen pending. Chest x-ray pending. Emergency Department Course and Treatment: Patient was placed on a monitor. IV access was obtained. We will check for anemia or other causes of his shortness of breath. Workup was nonspecific. EKG showed sinus rhythm at a rate of 84 with PACs, LVH, and QTc 491. Troponin was indeterminate at 0.084. This is not unusual for the patient. Hemoglobin is actually stable and slightly improved at 9.3. Sodium 128, chloride 94, glucose 108, BUN 19, creatinine 3.95. Coags normal. Chest x-ray showed improving left basilar changes and chronic changes. Patient is stable on reevaluation. I will recheck his troponin after 3 hours to make sure it is stable. I suspect this is likely a chronic issue and he has had this before. If his repeat troponin is unremarkable, and he continues to have no chest pain and no other associated symptoms, I believe he is appropriate for outpatient follow-up. I did speak to nephrology about his findings. They can follow-up as an outpatient. I spoke to Dr. Blackmon. I will refill the patient's PPI, and the patient will follow up with Dr. Santaigo rodriguez as an outpatient. Treatment Plan: As above Disposition: Discharge Impression: 1. Dyspnea 2. End-stage renal disease 3. History of ileostomy This note was generated with [employer] dictation software. It may contain incorrect words, spelling, and punctuation that were not noted in review of the chart prior to signing ED Disposition - Plan for ED Patient: Referrals: Tania Berger, SENIOR PUBLICATIONS SPECIALIST-C [Primary Care Provider] -
--- NOTE | 2019-01-23 11:11 | ED.DCSUM_ITS ---
- ER Visit Summary Date of Service: 01/23/19 Chief Complaint: Anemia History of Present Illness: The patient is a 68 M with possible anemia. 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 He has been feeling weak. His most recent hemoglobin was 7.8. He was not transfused. He is waiting for an outpatient blood count from yesterday. He was at dialysis today and it was noted that he had some blood in his ostomy, so he was referred to the ED. Patient reports some generalized weakness as well as shortness of breath. Denies chest pain. Denies cough or sputum. Denies fevers. He does take aspirin and Plavix. He also takes Prilosec. His surgeon is Dr. Henderson. Physical Examination: Afebrile and vital signs are unremarkable. Patient is alert and oriented. No acute distress. Skin appears normal in color without pallor or diaphoresis. Heart regular. Lungs clear. Abdomen soft and nontender. No gross blood in his ostomy bag. Test Results: EKG shows sinus rhythm at a rate of 84 with first-degree AV block. PACs noted. UTC 491. No sign of acute ischemia or infarction pattern. Laboratory studies pending. Type and screen pending. Chest x-ray pending. Emergency Department Course and Treatment: Patient was placed on a monitor. IV access was obtained. We will check for anemia or other causes of his shortness of breath. Workup was nonspecific. EKG showed sinus rhythm at a rate of 84 with PACs, LVH, and QTc 491. Troponin was indeterminate at 0.084. This is not unusual for the patient. Hemoglobin is actually stable and slightly improved at 9.3. Sodium 1 28, chloride 94, glucose 108, BUN 19, creatinine 3.95. Coags normal. Chest x- ray showed improving left basilar changes and chronic changes. Patient is stable on reevaluation. I will recheck his troponin after 3 hours to make sure it is stable. I suspect this is likely a chronic issue and he has had this before. If his repeat troponin is unremarkable, and he continues to have no chest pain and no other associated symptoms, I believe he is appropriate for outpatient follow-up. I did speak to nephrology about his findings. They can follow-up as an outpatient. I spoke to Dr. Blackmon. I will refill the patient's PPI, and the patient will follow up with Dr. Santiago rodriguez as an outpatient. Treatment Plan: As above Disposition: Discharge Impression: 1. Dyspnea 2. End-stage renal disease 3. History of ileostomy This note was generated with [employer] dictation software. It may contain incorrect words, spelling, and punctuation that were not noted in review of the chart prior to signing ED Disposition - Plan for ED Patient: Referrals: Tania Berger, [facility] REVIEWER-[facility] [Primary Care Provider] -
[2019-01-23 11:23] LABS: Absolute Lymphocyte Count 0.87 X10^3/ul (0.83-4.51); Absolute Neutrophil Count 8.2 X10^3/uL (2.0-7.7); Basophil# 0.02 X10^3/uL; Basophil% 0.2 % (0-1); Eosinophil# 0.09 X10^3/uL; Eosinophils% 0.9 % (0-5); Hematocrit 29.9 % (40-54); Hemoglobin 9.3 g/dl (13.0-16.5); Lymphocyte # 0.87 X10^3/ul (4.0); Lymphocyte % 8.6 % (19-41); Mean Corp Hgb Conc 31.1 g/gl (32-36); Mean Corpuscular Hgb 32.3 pg (27.0-32.0); Mean Corpuscular Volume 103.8 fL (80-94); Mean Platelet Vol. 9.2 fl (6.2-12.0); Monocyte# 0.83 X10^3/uL; Monocyte% 8.2 % (0-10); Neutrophil # 8.21 X10^3/uL (2.7-7.7); Neutrophil % 81.6 % (47-70); Platelet Count 191 K/mm3 (150-450); RBC Distribution Width CV 19.3 % (11.6-14.6); RBC Distribution Width SD 73.6 fl (35.1-43.9); Red Blood Count 2.88 M/mm3 (4.6-6.2); White Blood Count 10.1 K/mm3 (4.4-11.0)
[2019-01-23 11:25] LABS: Differential Indicated SCAN CRITERIA MET; POSITIVE COUNT NO; POSITIVE DIFFERENTIAL NO; POSITIVE MORPHOLOGY YES
[2019-01-23] MEDS: 0.9% Normal Saline 1,000 ML 10 ML IV (11:27)
[2019-01-23 11:36] LABS: Anion Gap 7 (5-15); BUN 19 mg/dL (7-18); BUN/Creat Ratio 4.8 RATIO (10-20); Calcium,Total 8.1 mg/dL (8.5-10.1); Chloride 94 mmol/L (98-107); Creatinine, Serum 3.95 mg/dL (0.70-1.30); EST Glomerular Filtration Rate 16 mL/min (>60); Est Glom Filt Rate - Afr Amer 20 mL/min (>60); Estimated Creatinine Clearance 15.79 ml/min; Glucose 108 mg/dL (74-106); Potassium 4.3 mmol/L (3.5-5.1); Sodium Level 128 mmol/L (136-145)
[2019-01-23 11:43] LABS: Anisocytosis RARE
[2019-01-23 11:46] LABS: International Normalized Ratio 1.1; Partial Thromboplast Time 31.9 Seconds (24.1-36.2); Prothrombin Time (Protime)PT. 13.6 SECONDS (11.7-14.9)
[2019-01-23 11:46] LABS: Platelet Estimate ADEQUATE (ADEQ); Red Cell Morphology NORM C+C NORMAL (NORM C&C)
--- NOTE | 2019-01-23 13:22 | ED.DEP ---
ED Disposition - Plan for ED Patient: Instructions: ED Anemia Type Not Specified Prescriptions: Omeprazole [Prilosec] 20 mg PO BID #60 cap Referrals: Armen Henderson MD [STAFF PHYSICIAN] -
== END 2019-01-23 15:12 | disposition home or self-care (01) ==
LOC: ED 11:25
PROVIDERS: Emergency Provider Emergency Medicine; Family Provider Nurse Practitioner Family; PCP Nurse Practitioner Family
DX: R06.00 Dyspnea, unspecified (principal); I12.0 Hypertensive chronic kidney disease with stage 5 chronic kidney disease or end stage renal disease; N18.6 End stage renal disease; Z99.2 Dependence on renal dialysis; Z93.2 Ileostomy status; I25.10 Atherosclerotic heart disease of native coronary artery without angina pectoris; J44.9 Chronic obstructive pulmonary disease, unspecified; Z79.82 Long term (current) use of aspirin; Z79.01 Long term (current) use of anticoagulants; Z79.899 Other long term (current) drug therapy; Z72.0 Tobacco use
CPT/HCPCS: 36415; 71045; 80048; 84484; 85025; 85610; 85730; 93005; 96365; 96366; 99284; J7030; J3490

== ENCOUNTER → 2019-01-31 10:51 | Outpatient (CLI) | payer MEDICARE, SELFPAY ==
[2019-01-31 10:32] VITALS: BMI 24.7
[2019-01-31 11:19] LABS: Anion Gap 7 (5-15); BUN 25 mg/dL (7-18); BUN/Creat Ratio 4.8 RATIO (10-20); Calcium,Total 8.8 mg/dL (8.5-10.1); Chloride 94 mmol/L (98-107); Creatinine, Serum 5.21 mg/dL (0.70-1.30); EST Glomerular Filtration Rate 12 mL/min (>60); Est Glom Filt Rate - Afr Amer 14 mL/min (>60); Glucose 104 mg/dL (74-106); Sodium Level 128 mmol/L (136-145)
[2019-01-31 11:24] LABS: Hematocrit 29.1 % (40-54); Hemoglobin 8.9 g/dl (13.0-16.5); Mean Corp Hgb Conc 30.6 g/gl (32-36); Mean Corpuscular Hgb 32.1 pg (27.0-32.0); Mean Corpuscular Volume 105.1 fL (80-94); Mean Platelet Vol. 9.1 fl (6.2-12.0); Platelet Count 248 K/mm3 (150-450); Red Blood Count 2.77 M/mm3 (4.6-6.2); White Blood Count 9.7 K/mm3 (4.4-11.0)
[2019-01-31 11:25] LABS: Scan Indicated on CBC? Y/N YES- FLAGS NOTED
[2019-02-01 14:13] LABS: Pathologist Review Reviewed
== END ==
PROVIDERS: Family Provider Nurse Practitioner Family; PCP Nurse Practitioner Family; Referring Provider Physician Assistant; Visit Provider Physician Assistant
DX: T82.898A Other specified complication of vascular prosthetic devices, implants and grafts, initial encounter (principal)
CPT/HCPCS: 36415; 80048; 85027

== ENCOUNTER 2019-02-06 09:03 | Day surgery (SDC) | payer MEDICARE, SELFPAY ==
[2019-01-31 10:32] VITALS: BMI 24.7
[2019-02-06 09:26] VITALS: BMI 24.7
--- NOTE | 2019-02-06 11:26 | PCM.OPRPT ---
Problem List (1) Problem with dialysis access Status: Acute Qualifiers: Encounter type: initial encounter Report of Operation Date of Procedure: 02/06/19 Pre-Operative Diagnosis: Problem with left upper extremity brachial to cephalic arteriovenous hemodialysis fistula with diminished flow Post-Operative Diagnosis: Left upper extremity brachiocephalic arteriovenous hemodialysis fistula with high-grade proximal fistula venous stenosis and high-grade mid fistula stenosis Surgery/Procedure Performed:: Left upper extremity fistulogram with 8 x 4 conquest angioplasty Description of Surgical Findings:: Timeout and informed consent was obtained. 68-year-old gent was taken to special procedures lab placed on the table. 50 mcg of fentanyl 1 mg of Versed were given as intravenous sedation. The right extremity sterilely prepped draped. Under ultrasound guidance in the more proximal upper left arm 2% lidocaine was instilled under ultrasound guidance. Micropuncture needle was inserted retrograde with flow. Micropuncture wire inserted. 6 [place] short sheath dilator was placed. Using an 035 angled Glidewire and a 4 [place] glide cath I gained access to the brachial artery proximal of the fistula. Using Isovue contrast to fistulogram was obtained. This demonstrated 2 areas of tight weblike stenosis within the proximal 4 cm of the fistula. The patient received 5000 units of heparin. A 8 x 40 mm conquest balloon was inserted and balloon angioplasty was performed up to 20 julio of pressure. This was held for 3 minutes. Completion views now demonstrated with resolution of those areas of stenosis however there was another more diffuse area of 85% stenosis in the mid fistula. So I had again double access. Closer to the antecubital space 2% lidocaine was instilled needle was now inserted at that location antegrade with flow and a 6 [place] short sheath dilator was placed. An angled Glidewire was advanced past the mid fistula stenosis in the same 8 x 4 conquest balloon was inserted and balloon angioplasty performed. At the completion there appeared to be good fistula flow in the upper arm. There was some central venous stenosis in the left subclavianvein however I did not feel that that warranted attention at this time. Sheaths were removed few suture of 4-0 nylon was placed blood loss was minimal there was a good pulse thrill and bruit at the completion no apparent complication hand was viable he tolerated procedure nicely was taken to the recovery area in satisfactory edition Fistulogram demonstrates a left upper arm brachiocephalic hemodialysis fistula. There is evidence of 2 areas of high-grade weblike stenosis within the proximal 3 cm of the fistula. There is an area more smooth and diffuse of 85% stenosis in the mid fistula. There is approximately 50% stenosis in the left subclavian vein. There is collateral flow from the cephalic vein to the basilic vein in the mid upper arm providing additional outflow. Subsequent to the angioplasty there is resolution of the cephalic vein stenosis in the proximal fistula mid fistula. As noted the left subclavian was not it dressed at this setting as I did not feel that met criteria. Demian Lua M.D., F.A.C.S. Type of Anesthesia:: IV Sedation, Local
--- NOTE | 2019-02-06 11:33 | OP.PCM_ITS ---
Problem List (1) Problem with dialysis access Status: Acute Qualifiers: Encounter type: initial encounter Report of Operation Date of Procedure: 02/06/19 Pre-Operative Diagnosis: Problem with left upper extremity brachial to cephalic arteriovenous hemodialysis fistula with diminished flow Post-Operative Diagnosis: Left upper extremity brachiocephalic arteriovenous hemodialysis fistula with high-grade proximal fistula venous stenosis and high- grade mid fistula stenosis Surgery/Procedure Performed:: Left upper extremity fistulogram with 8 x 4 conquest angioplasty Description of Surgical Findings:: Timeout and informed consent was obtained. 68-year-old gent was taken to special procedures lab placed on the table. 50 mcg of fentanyl 1 mg of Versed were given as intravenous sedation. The right extremity sterilely prepped draped. Under ultrasound guidance in the more proximal upper left arm 2% lidocaine was instilled under ultrasound guidance. Micropuncture needle was inserted retrograde with flow. Micropuncture wire inserted. 6 [place] short sheath dilator was placed. Using an 035 angled Glidewire and a 4 [place] glide cath I gained access to the brachial artery proximal of the fistula. Using Isovue contrast to fistulogram was obtained. This demonstrated 2 areas of tight weblike stenosis within the proximal 4 cm of the fistula. The patient received 5000 units of heparin. A 8 x 40 mm conquest balloon was inserted and balloon angioplasty was performed up to 20 julio of pressure. This was held for 3 minutes. Completion views now demonstrated with resolution of those areas of stenosis however there was another more diffuse area of 85% stenosis in the mid fistula. So I had again double access. Closer to the antecubital space 2% lidocaine was instilled needle was now inserted at that location antegrade with flow and a 6 [place] short sheath dilator was placed. An angled Glidewire was advanced past the mid fistula stenosis in the same 8 x 4 conquest balloon was inserted and balloon angioplasty performed. At the completion there appeared to be good fistula flow in the upper arm. There was some central venous stenosis in the left subclavianvein however I did not feel that that warranted attention at this time. Sheaths were removed few suture of 4-0 nylon was placed blood loss was minimal there was a good pulse thrill and bruit at the completion no apparent complication hand was viable he tolerated procedure nicely was taken to the recovery area in satisfactory edition Fistulogram demonstrates a left upper arm brachiocephalic hemodialysis fistula. There is evidence of 2 areas of high-grade weblike stenosis within the proximal 3 cm of the fistula. There is an area more smooth and diffuse of 85% stenosis in the mid fistula. There is approximately 50% stenosis in the left subclavian vein. There is collateral flow from the cephalic vein to the basilic vein in the mid upper arm providing additional outflow. Subsequent to the angioplasty there is resolution of the cephalic vein stenosis in the proximal fistula mid fistula. As noted the left subclavian was not it dressed at this setting as I did not feel that met criteria. Demian Lua M.D., F.A.C.S. Type of Anesthesia:: IV Sedation, Local
== END 2019-02-06 12:35 | disposition home or self-care (01) ==
PROVIDERS: Family Provider Nurse Practitioner Family; PCP Nurse Practitioner Family; Referring Provider Surgery; Visit Provider Surgery
DX: T82.858A Stenosis of other vascular prosthetic devices, implants and grafts, initial encounter (principal); I25.2 Old myocardial infarction; I25.10 Atherosclerotic heart disease of native coronary artery without angina pectoris; E78.5 Hyperlipidemia, unspecified; I11.0 Hypertensive heart disease with heart failure; I50.30 Unspecified diastolic (congestive) heart failure; I73.9 Peripheral vascular disease, unspecified; J44.9 Chronic obstructive pulmonary disease, unspecified; D64.9 Anemia, unspecified; N40.0 Benign prostatic hyperplasia without lower urinary tract symptoms; Z95.1 Presence of aortocoronary bypass graft; Z79.82 Long term (current) use of aspirin; Z79.899 Other long term (current) drug therapy; F17.200 Nicotine dependence, unspecified, uncomplicated
CPT/HCPCS: 36902; 76937; 99152; 99153; Q9967; C1725; C1769

== ENCOUNTER → 2019-02-08 | Outpatient (CLI) | payer MEDICARE, SELFPAY ==
[2019-01-31 10:32] VITALS: BMI 24.7
[2019-02-06 09:26] VITALS: BMI 24.7
--- NOTE | 2019-02-08 08:44 | CDU_ITS ---
Reason For Study: carotid stenosis Rt. Velocities/BP Lt. Velocities/BP Prox CCA 106/12.1 cm/sec. Prox CCA 148.5/11.5 cm/sec. Mid CCA 117.7/14.7 cm/sec. Mid CCA 157.6/13.3 cm/sec. Dist CCA 108.6/13.4 cm/sec. Dist CCA 200.4/9.4 cm/sec. Prox ICA 228.7/31.9 cm/sec. Prox ICA 130.1/20.4 cm/sec. Mid ICA 108.3/15.2 cm/sec. Mid ICA 269.2/46.2 cm/sec. Dist ICA 141.2/20.6 cm/sec. Dist ICA 178.7/30.1 cm/sec. Rt. ICA/CCA = 1.9. Lt. ICA/CCA = 1.7. Prox ECA 146.7 cm/sec. Prox ECA 152.1 cm/sec. Rt. Vert. 87.2/21.2 cm/sec. Lt. Vert. 82.5/8.8 cm/sec. Right Extracranial There is heterogeneous, irregular atherosclerotic plaque noted in the right common carotid artery. There is heterogeneous, irregular atherosclerotic plaque noted in the right internal carotid artery. There is heterogeneous, irregular atherosclerotic plaque noted in the right external carotid artery. Antegrade flow is noted in the right vertebral artery. Left Extracranial There is heterogeneous, irregular atherosclerotic plaque noted in the left common carotid artery. There is heterogeneous, irregular atherosclerotic plaque noted in the left internal carotid artery. There is heterogeneous, irregular atherosclerotic plaque noted in the left external carotid artery. Antegrade flow is noted in the left vertebral artery. Procedure Carotid Duplex [id number]. 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 50-69% stenosis right internal carotid but very close to >70% stenosis. <50% stenosis right external carotid Irregular calcific plague at the proximal left internal and external carotids. >70% stenosis left internal carotid <50% stenosis left external carotid Patent and antegrade vertebrals bilaterally Slight progression noted on the left since 07/11/18. Ordering Physician: Demian Lua Performed By: Rolando Dao RVT
== END | disposition home or self-care (01) ==
LOC: CVS 08:43
PROVIDERS: Family Provider Nurse Practitioner Family; PCP Nurse Practitioner Family; Referring Provider Surgery; Visit Provider Surgery
DX: I65.23 Occlusion and stenosis of bilateral carotid arteries (principal)
CPT/HCPCS: 93880

== ENCOUNTER → 2019-02-23 | Outpatient (CLI) | payer MEDICARE, SELFPAY ==
[2019-02-06 09:26] VITALS: BMI 24.7
[2019-02-23 14:40] LABS: Hemoglobin 7.2 g/dl (13.0-16.5)
== END | disposition home or self-care (01) ==
LOC: LABSPEC 13:57
PROVIDERS: Family Provider Nurse Practitioner Family; PCP Nurse Practitioner Family; Referring Provider Internal Medicine Nephrology; Visit Provider Internal Medicine Nephrology
DX: D64.9 Anemia, unspecified (principal)
CPT/HCPCS: 85018

== ENCOUNTER → 2019-02-26 | Outpatient (CLI) | payer MEDICARE, SELFPAY ==
[2019-02-06 09:26] VITALS: BMI 24.7
[2019-02-26 15:40] LABS: Hemoglobin 7.7 g/dl (13.0-16.5)
== END | disposition home or self-care (01) ==
LOC: LABSPEC 13:19
PROVIDERS: Family Provider Nurse Practitioner Family; PCP Nurse Practitioner Family; Referring Provider Internal Medicine Nephrology; Visit Provider Internal Medicine Nephrology
DX: D64.9 Anemia, unspecified (principal)
CPT/HCPCS: 85018

== ENCOUNTER → 2019-02-28 | Outpatient (CLI) | payer MEDICARE, SELFPAY ==
[2019-02-06 09:26] VITALS: BMI 24.7
--- NOTE | 2019-02-28 09:59 | ART_ITS ---
Reason For Study: Claudication Procedure A bilateral lower extremity continuous wave Doppler with analog waveform analysis,segmental pressures,and ankle brachial indexes without exercise. Left Segmental Pressures Left posterior tibial artery = >254mmHg. Left dorsalis pedis artery = >254mmHg. Left digit = 29 mmHg. The left dorsalis pedis waveforms are monophasic. The left posterior tibial artery waveforms are monophasic. Right Segmental Pressures Right brachial= 143mmHg. Right thigh = 66mmHg. Right calf = >254mmHg. Right posterior tibial artery = 26mmHg. Right dorsalis pedis artery = >254mmHg. The right dorsalis pedis waveforms are monophasic. The right posterior tibial artery waveforms are monophasic. Indices The right ankle brachial index by the dorsalis pedis is NC. The right ankle brachial index by the posterior tibial artery is 0.18. The left ankle brachial index by the dorsalis pedis is NC. The left ankle brachial index by the posterior tibial artery is NC. The left digital-brachial index is 0.20. Interpretation Summary Non compressible vessels bilaterally making non-invasive evaluation difficult. Only mono phasic doppler waveforms bilateral DP and PT consistent with severe multisegmental disease. Findings are consistent with severe ischemia/rest pain bilaterally Ordering Physician: Demian Lua Referring Physician: Demian Lua MD Performed By: Obdulia Young RVT
== END | disposition home or self-care (01) ==
LOC: CVS 09:58
PROVIDERS: Family Provider Nurse Practitioner Family; PCP Nurse Practitioner Family; Referring Provider Surgery; Visit Provider Surgery
DX: I73.9 Peripheral vascular disease, unspecified (principal); Z95.820 Peripheral vascular angioplasty status with implants and grafts
CPT/HCPCS: 93923

== ENCOUNTER 2019-03-20 09:54 | Day surgery (SDC) | payer MEDICARE, SELFPAY ==
[2019-03-02 10:28] VITALS: BMI 24.4
--- NOTE | 2019-03-02 10:49 | HP_ITS ---
Intake Vital Signs 03/02/19 Height 5 ft 5.5 in 03/02/19 Weight: 149 lb 03/02/19 Body Mass Index (BMI) 24.4 03/02/19 Blood Pressure 152/61 H 03/02/19 Blood Pressure Location Rt brachial 03/02/19 Blood Pressure Position Sitting 03/02/19 Respiratory Rate 14 03/02/19 Pulse Rate 87 03/02/19 Pulse Source Monitor 03/02/19 Temperature 98.2 F 03/02/19 Temperature Source Oral 03/02/19 Pulse Ox 97 03/02/19 Oxygen Delivery Method room air 03/02/19 Body Mass Index (BMI) 24.7 Intake Visit Reasons: PAD/ PVR 5-15 Chief Complaint: SHORTNESS OF BREATH [employer] Required: No Is patient in pain?: No Allergies irbesartan [From Avapro] Allergy (Severe, Verified 03/02/19 10:29) Blisters zolpidem [From Ambien] Adverse Reaction (Severe, Verified 03/02/19 10:29) made me go crazy, memory loss amoxicillin Adverse Reaction (Intermediate, Verified 03/02/19 10:29) Other metronidazole [From Flagyl] Adverse Reaction (Verified 03/02/19 10:29) Other Medications Albuterol Sulfate 2.5 mg IH Q4H PRN 11/13/18 [History Confirmed 03/02/19] Alprazolam [Xanax] 1 mg PO TID PRN 11/13/18 [History Confirmed 03/02/19] Aspirin E.C. [Ecotrin] 81 mg PO DAILY@0800 11/13/18 [History Confirmed 03/02/19] Rosuvastatin Calcium [Crestor] 40 mg PO QHS 11/13/18 [History Confirmed 03/02/19] Tamsulosin HCl [Flomax] 0.8 mg PO DAILY 11/13/18 [History Confirmed 03/02/19] Metoprolol(XL)Succ [Toprol Xl (Beta Kadi)] 100 mg PO BID 12/06/18 [History Confirmed 03/02/19] Acetaminophen [Tylenol Tablet] 650 mg PO Q4H PRN PRN tab 12/19/18 [Rx Confirmed 02/05/19] Omeprazole [Prilosec] 20 mg PO BID #60 cap 01/23/19 [Rx Confirmed 03/02/19] ascorbate calcium (Vitamin C) 500 mg tablet 500 mg PO DAILY 03/02/19 [History Confirmed 03/02/19] cholecalciferol (vitamin D3) 1,000 unit capsule 1,000 unit PO DAILY 03/02/19 [History Confirmed 03/02/19] clopidogrel 75 mg tablet 75 mg PO DAILY 03/02/19 [History Confirmed 03/02/19] omega-3 fatty acids 1,000 mg capsule 1,000 mg PO DAILY 03/02/19 [History Confirmed 03/02/19] vitamin B complex tablet 1 tab PO DAILY 03/02/19 [History Confirmed 03/02/19] vitamin B complex-vitamin C-folic acid 0.8 mg tablet 1 tab PO DAILY 03/02/19 [History Confirmed 03/02/19] [facility] Medical History Problem with dialysis access (Acute) History of non-ST elevation myocardial infarction (NSTEMI) (Chronic 01/21/11) Atherosclerotic heart disease of [place] coronary artery without angina pectoris (Chronic) Diastolic CHF (Chronic) HLD (hyperlipidemia) (Chronic) HTN (hypertension) (Chronic) PAD (peripheral artery disease) (Chronic) COPD (chronic obstructive pulmonary disease) (Chronic) Tobacco dependence (Chronic) Anemia (Chronic) BPH (benign prostatic hyperplasia) (Chronic) Surgical History History of right and left heart catheterization (Chronic 05/24/18) Stented coronary artery (Chronic) 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 One is follow-up of his left upper extremity transposed cephalic vein to brachial artery AV hemodialysis fistula and the other is evaluation for peripheral vascular occlusive disease. He has a known history of left proximal subclavian stenosis treated September 28, 2018 with a 12 x 4 [place] balloon. His most recent intervention was a fistulogram as noted below Operative Report 02/06/19 1126 MR#: [id number] Name: ANGELINA FORREST Jr.Rep #:[id number]: Demian Lua MD PCP:SEUN Poe Status:REG SDCY Location: [facility] Problem List (1) Problem with dialysis access Status: Acute Qualifiers: Encounter type: initial encounter Report of Operation Date of Procedure: 02/06/19 Pre-Operative Diagnosis: Problem with left upper extremity brachial to cephalic arteriovenous hemodialysis fistula with diminished flow Post-Operative Diagnosis: Left upper extremity brachiocephalic arteriovenous hemodialysis fistula with high-grade proximal fistula venous stenosis and high- grade mid fistula stenosis Surgery/Procedure Performed:: Left upper extremity fistulogram with 8 x 4 conquest angioplasty Description of Surgical Findings:: Timeout and informed consent was obtained. 68-year-old gent was taken to special procedures lab placed on the table. 50 mcg of fentanyl 1 mg of Versed were given as intravenous sedation. The right extremity sterilely prepped draped. Under ultrasound guidance in the more proximal upper left arm 2% lidocaine was instilled under ultrasound guidance. Micropuncture needle was inserted retrograde with flow. Micropuncture wire inserted. 6 [place] short sheath dilator was placed. Using an 035 angled Glidewire and a 4 [place] glide cath I gained access to the brachial artery proximal of the fistula. Using Isovue contrast to fistulogram was obtained. This demonstrated 2 areas of tight weblike stenosis within the proximal 4 cm of the fistula. The patient received 5000 units of heparin. A 8 x 40 mm conquest balloon was inserted and balloon angioplasty was performed up to 20 julio of pressure. This was held for 3 minutes. Completion views now demonstrated with resolution of those areas of stenosis however there was another more diffuse area of 85% stenosis in the mid fistula. So I had again double access. Closer to the antecubital space 2% lidocaine was instilled needle was now inserted at that location antegrade with flow and a 6 [place] short sheath dilator was placed. An angled Glidewire was advanced past the mid fistula stenosis in the same 8 x 4 conquest balloon was inserted and balloon angioplasty performed. At the completion there appeared to be good fistula flow in the upper arm. There was some central venous stenosis in the left subclavianvein however I did not feel that that warranted attention at this time. Sheaths were removed few suture of 4-0 nylon was placed blood loss was minimal there was a good pulse thrill and bruit at the completion no apparent complication hand was viable he tolerated procedure nicely was taken to the recovery area in satisfactory edition Fistulogram demonstrates a left upper arm brachiocephalic hemodialysis fistula. There is evidence of 2 areas of high-grade weblike stenosis within the proximal 3 cm of the fistula. There is an area more smooth and diffuse of 85% stenosis in the mid fistula. There is approximately 50% stenosis in the left subclavian vein. There is collateral flow from the cephalic vein to the basilic vein in the mid upper arm providing additional outflow. Subsequent to the angioplasty there is resolution of the cephalic vein stenosis in the proximal fistula mid fistula. As noted the left subclavian was not it dressed at this setting as I did not feel that met criteria. Demian Lua M.D., F.A.C.S. Type of Anesthesia:: IV Sedation, Local 02/06/19 4047<Electronically signed by Demian Lua MD> Date Demian Lua MD CC: SEUN Berger; Demian Lua MD ~ Today's visit however he wants to describe severe bilateral lower extremity claudication Mar 12 2015 per or Joseph Jiménez patient had a CTA 50% stenosis right common iliac artery. 50% stenosis right external iliac artery. 50% stenosis right common femoral artery. 40% stenosis left common iliac artery. 40% stenosis of the left external iliac artery. 50% stenosis left common femoral artery. Occluded right superficial femoral artery to Guilherme's canal with 50% right popliteal stenosis and three-vessel runoff. 80% stenosis of the left superficial femoral artery with heavy calcification followed by second stenosis of 80% followed by 80% left abductor canal stenosis followed by 75% left popliteal stenosis with three-vessel runoff. Subsequently on July 09, 2016 same physician performed arteriogram. There was occlusion of the proximal left superficial femoral artery which he stented to a residual of 10% stenosis and also treated it with a drug-coated balloon. But there was a 100% left mid superficial femoral artery stenosis in 100% occlusion of the left popliteal and 70% stenosis of the left profundofemoral artery. At that time there is 100% ostial occlusion of the right superficial femoral artery. The patient was instructed that there was no additional endovascular technique that was of opportunity to him. The patient claims that his symptoms were not improved even with the left lower extremity at the time of that intervention. The patient recently had acute colon ischemia requiring a colectomy and end ileostomy. He is told that his health is so poor that takedown of the colostomy is not anticipated. ROS General General: Yes weight change and fatigue; no appetite, colon cancer, breast cancer or weakness HEENT HEENT: No difficulty swallowing, eye injury, eye surgery, swollen glands or hoarseness Endo Endocrine: No thyroid disease, diabetes mellitus, thyroid cancer, Hair loss, heat intolerance or cold intolerance Skin Skin: No rash or changing moles Breast Breast: No left breast lump, right breast lump, nipple discharge, breast pain, abnormal mammogram, abnormal US or breast enlargement Musc Musculoskeletal: Yes arthritis; no back problems, rheumatoid arthritis, gout or joint pain Cardio Cardiovascular: Yes heart disease, high blood pressure, heart attack and heart stent; no murmur, pacemaker, atrial fibrillation, palpitations, shortness of breat with exertion or chest pain Psych Psychiatric: Yes anxiety; no depression or hearing voices Resp Respiratory: Yes shortness of breath, No sleep apnea, No cough, No COPD, No asthma, No emphysema, No wheezing Gastro Gastrointestinal: No abdominal pain, No nausea or vomiting, No diarrhea, No constipation, No blood in stool, No acid reflux, No hemorrhoids, No ulcers, No gallbladder problem, No black,tarry stools Fernando Hematologic: Yes blood thinners, No blood disorders, No bleeding, No anemia, No blood clots Neuro Neurologic: No weakness Exam Const General: ill appearing, other (Patient appears far older than stated age) Nutritional Appearance: average body habitus Orientation: alert, awake Eyes General: appearance normal, both eyes and all related structures Chest Breast Palpation: No nipple discharge Other: Increased anterior posterior diameter Resp Other: Diminished respiratory excursion, clear in the apices Cardio Rate: regular rate Rhythm: regular rhythm Heart Sounds: no murmurs GI Palpation: soft Extrem Other: Left upper extremity brachial to cephalic AV fistula. It has a pulse and thrill and bruit but there is diminished diastolic flow audible Bilateral femoral arteries 2+, bilateral popliteals DPs and PTs absent 3+ pitting edema bilateral lower extremities from the proximal calves distally. Hair loss. Hypertrophic nails. Significant elevation pallor and dependent rubor. Hair loss. Diminished capillary refill. Slightly cool Assessment & Plan Problems 1. Problem with dialysis access, initial encounter T82.243Q 2. PAD (peripheral artery disease) I73.9 Plan Regarding the patient's left upper extremity fistula. His most recent fistulogram required treatment in the proximal portion of the fistula in the midportion of the fistula with an 8 x 4 conquest. He previously required central venous angioplasty. I suspect that he has multisegmental recurrent processes. I am recommending a fistulogram with anticipated endovascular intervention which might require drug-coated balloon or cutting balloon or a central venous Viabahn stent. The patient is aware of technique, benefit, risk and alternatives. We will schedule and proceed as noted. Regarding the patient's legs he does not appear to be a candidate for further endovascular intervention and this is been described to him previously. He would appear to have end-stage disease. He would be at very high risk for bypass. I do not feel comfortable attempting to offer him something locally. I suggested to him we could refer him to a large tertiary center if he requested. I did suggest to him that I suspect that his multiple medical comorbidities now have gotten to the point where medical reversal likely is not possible He has had an opportunity to ask and have questions answered. I am not anticipating attempting any type of intervention regarding his lower extremities and he is at risk for amputation and he is aware he is at risk for subsequent to that. I will schedule him for a left upper extremity fistulogram with anticipated endovascular intervention and as noted above Demian Lua M.D., F.A.C.S. cc: Dr. Tania Berger Coding Level of Care Code Off vis,est,level 4 Diagnoses Problem with dialysis access, initial encounter T82.218A ??Encounter type: initial encounter PAD (peripheral artery disease) I73.9 03/02/19 1049 <Electronically signed by Demian Lua MD> Date Demian Lua MD I have re-examined the patient. There are no clinical changes since date of exam.
[2019-03-15 13:39] LABS: Hematocrit 27.3 % (40-54); Hemoglobin 8.1 g/dl (13.0-16.5); Mean Corp Hgb Conc 29.7 g/gl (32-36); Mean Corpuscular Hgb 32.4 pg (27.0-32.0); Mean Corpuscular Volume 109.2 fL (80-94); Mean Platelet Vol. 9.7 fl (6.2-12.0); Platelet Count 277 K/mm3 (150-450); RBC Distribution Width CV 17.7 % (11.6-14.6); RBC Distribution Width SD 69.7 fl (35.1-43.9); Scan Indicated on CBC? Y/N YES- FLAGS NOTED; White Blood Count 8.1 K/mm3 (4.4-11.0)
[2019-03-15 13:58] LABS: Anion Gap 10 (5-15); BUN 13 mg/dL (7-18); Calcium,Total 8.5 mg/dL (8.5-10.1); Chloride 91 mmol/L (98-107); Creatinine, Serum 4.39 mg/dL (0.70-1.30); EST Glomerular Filtration Rate 14 mL/min (>60); Est Glom Filt Rate - Afr Amer 17 mL/min (>60); Glucose 96 mg/dL (74-106); Potassium 3.2 mmol/L (3.5-5.1); Sodium Level 135 mmol/L (136-145)
[2019-03-15 14:12] LABS: Differential Comment SCANNED
[2019-03-19 11:44] VITALS: BMI 24.0
[2019-03-20 10:21] LABS: Potassium 3.6 mmol/L (3.5-5.1)
--- NOTE | 2019-03-20 12:53 | PCM.OPRPT ---
Problem List (1) Problem with dialysis access Status: Acute Qualifiers: Encounter type: initial encounter Report of Operation Date of Procedure: 03/20/19 Pre-Operative Diagnosis: Diminished flow left upper extremity transposed basilic vein to brachial artery arteriovenous hemodialysis fistula Post-Operative Diagnosis: Left subclavian central venous stenosis Surgery/Procedure Performed:: Left upper extremity fistulogram with 10 x 4 [place] angioplasty and 39 mm VBX Viabahn stent grafting left subclavian growing it to 14 mm with a 14 x 40 mm [place] balloon Description of Surgical Findings:: Timeout and informed consent was obtained. 68-year-old gent was taken to the special procedures lab placed on the table. The left extremity sterilely prepped draped. Under ultrasound guidance 2% lidocaine was instilled closed to the origin of the fistula at the antecubital space approximately the brachial artery. 2% lidocaine was instilled under ultrasound guidance. Micropuncture needle inserted antegrade with flow. Micropuncture needle inserted micropuncture wire inserted 6 English short sheath was inserted. Performed a fistulogram of the left upper arm and chest area. This demonstrated 70% stenosis of the proximal left subclavian vein. I performed a 10 x 40 mm [place] angioplasty. I then withdrew that 10 mm balloon into the mid upper arm fistula and was able to use that at 2 julio of pressure to allow for retrograde view of the arterial anastomosis. The arterial anastomosis venous inflow main body of the fistula all widely patent. There was 70% stenosis or greater of the proximal left subclavian. There was incomplete resolution after 10 x 40 mm [place] angioplasty. I then placed a VBX Viabahn balloon expandable stent. Reference number [id number] serial #[id number] expiry date 02/10/2021 There is good positioning of the stent but incomplete distention centrally so I then placed a 14 x 40 mm [place] balloon and further expanded the stent. Although some foreshortening with spear to be good positioning. Final fistulogram now demonstrated a widely patent left subclavian with good central flow. It is of note that the left internal jugular vein was previously mostly occluded by the stenosis at the proximal subclavian with irregularity causing very poor flow centrally of the jugular. After the stent graft placement not seeing left internal jugular flow consistent with a severe disease that had already been present. Balloons wires sheaths were removed U suture with of 4-0 nylon was placed hemostasis was intact blood loss minimal there were no apparent complications. There was an absolutely wonderful pulse thrill and bruit within the fistula at the completion Fistulogram demonstrates a widely patent left upper extremity transposed basilic vein to brachial artery AV fistula. However there is central venous stenosis of the left proximal subclavian. Subsequent to angioplasty and stenting there is now complete resolution. It is of note that the left internal jugular severely diseased preintervention now appears to be caged off by the stent. Demian Lua M.D., F.A.C.S. Of additional note that the patient received and aliquots a total of 100 mcg of fentanyl and 2 mg of Versed throughout the procedure.
--- NOTE | 2019-03-20 13:00 | OP.PCM_ITS ---
Problem List (1) Problem with dialysis access Status: Acute Qualifiers: Encounter type: initial encounter Report of Operation Date of Procedure: 03/20/19 Pre-Operative Diagnosis: Diminished flow left upper extremity transposed basilic vein to brachial artery arteriovenous hemodialysis fistula Post-Operative Diagnosis: Left subclavian central venous stenosis Surgery/Procedure Performed:: Left upper extremity fistulogram with 10 x 4 Cherry angioplasty and 39 mm VBX Viabahn stent grafting left subclavian growing it to 14 mm with a 14 x 40 mm [place] balloon Description of Surgical Findings:: Timeout and informed consent was obtained. 68-year-old gent was taken to the special procedures lab placed on the table. The left extremity sterilely prepped draped. Under ultrasound guidance 2% lidocaine was instilled closed to the origin of the fistula at the antecubital space approximately the brachial artery. 2% lidocaine was instilled under ultrasound guidance. Micropuncture needle inserted antegrade with flow. Micropuncture needle inserted micropuncture wire inserted 6 [place] short sheath was inserted. Performed a fistulogram of the left upper arm and chest area. This demonstrated 70% stenosis of the proximal left subclavian vein. I performed a 10 x 40 mm [place] angioplasty. I then withdrew that 10 mm balloon into the mid upper arm fistula and was able to use that at 2 julio of pressure to allow for retrograde view of the arterial anastomosis. The arterial anastomosis venous inflow main body of the fistula all widely patent. There was 70% stenosis or greater of the proximal left subclavian. There was incomplete resolution after 10 x 40 mm Cherry angioplasty. I then placed a VBX Viabahn balloon expandable stent. Reference number [id number] serial #[id number] expiry date 02/10/2021 There is good positioning of the stent but incomplete distention centrally so I then placed a 14 x 40 mm [place] balloon and further expanded the stent. Although some foreshortening with spear to be good positioning. Final fistulogram now demonstrated a widely patent left subclavian with good central flow. It is of note that the left internal jugular vein was previously mostly occluded by the stenosis at the proximal subclavian with irregularity causing very poor flow centrally of the jugular. After the stent graft placement not seeing left i nternal jugular flow consistent with a severe disease that had already been present. Balloons wires sheaths were removed U suture with of 4-0 nylon was placed hemostasis was intact blood loss minimal there were no apparent complications. There was an absolutely wonderful pulse thrill and bruit within the fistula at the completion Fistulogram demonstrates a widely patent left upper extremity transposed basilic vein to brachial artery AV fistula. However there is central venous stenosis of the left proximal subclavian. Subsequent to angioplasty and stenting there is now complete resolution. It is of note that the left internal jugular severely diseased preintervention now appears to be caged off by the stent. Demian Lua M.D., F.A.C.S. Of additional note that the patient received and aliquots a total of 100 mcg of fentanyl and 2 mg of Versed throughout the procedure.
== END 2019-03-20 14:00 | disposition home or self-care (01) ==
LOC: CLSP 09:55
PROVIDERS: Family Provider Nurse Practitioner Family; PCP Nurse Practitioner Family; Referring Provider Surgery; Visit Provider Surgery
DX: T82.858A Stenosis of other vascular prosthetic devices, implants and grafts, initial encounter (principal); I25.2 Old myocardial infarction; I25.10 Atherosclerotic heart disease of native coronary artery without angina pectoris; I11.0 Hypertensive heart disease with heart failure; I50.30 Unspecified diastolic (congestive) heart failure; E78.5 Hyperlipidemia, unspecified; I73.9 Peripheral vascular disease, unspecified; J44.9 Chronic obstructive pulmonary disease, unspecified; D64.9 Anemia, unspecified; N40.0 Benign prostatic hyperplasia without lower urinary tract symptoms; M19.90 Unspecified osteoarthritis, unspecified site; F41.9 Anxiety disorder, unspecified; Z95.1 Presence of aortocoronary bypass graft; Z79.82 Long term (current) use of aspirin; Z79.899 Other long term (current) drug therapy; F17.200 Nicotine dependence, unspecified, uncomplicated
CPT/HCPCS: 36415; 36903; 76937; 80048; 84132; 85027; 99152; 99153; Q9967; C1769; C1874; C1894

== ENCOUNTER 2019-03-26 16:04 | Inpatient (IN) | payer MEDICARE, SELFPAY ==
[2019-03-19 11:44] VITALS: BMI 24.0
[2019-03-26] VITALS (16 sets, daily range): BP systolic 123–164; BP diastolic 47–73; PULSE 88–129; RESP 12–38; TEMP 36.6–39.3; O2SAT 92–99; BMI 24.7; BMI 25.4
--- NOTE | 2019-03-26 16:18 | EKG12_ITS ---
Test Reason : ABN LABS Blood Pressure : / mmHG Vent. Rate : 098 BPM Atrial Rate : 105 BPM P-R Int : 000 ms QRS Dur : 092 ms QT Int : 418 ms P-R-T Axes : 000 064 074 degrees QTc Int : 533 ms Sinus vs. Ectopic Atrial Rhythmwith PSVC's Cannot rule out Anterior infarct , age undetermined Nonspecific ST/T Wave Abnormality Consider Precordial Leads Misplacement Recommended repeat ECG Abnormal ECG When compared with ECG of 23-JAN-2019 11:01, Confirmed by SANTANA MONTENEGRO, KEISHA ([id number]), editor school photograph ANGELA MTZ ([id number]) on 03/28/2019 11:09:26 AM Referred By: Caleb Alaniz Confirmed By:KEISHA DILLON MD
--- NOTE | 2019-03-26 16:25 | RAD_ITS ---
STUDY: X-RAY CHEST REASON FOR EXAM: Male, 68 years old. Atrial fibrillation. Dyspnea. TECHNIQUE: Single AP portable view of the chest. COMPARISON: January 23, 2018 FINDINGS: The lungs are clear and expanded. There is no demonstrated pleural abnormality. Sternal cerclage wires are present from a prior sternotomy. Normal mediastinum and justyn. Normal visualized pulmonary arteries. There is atherosclerotic calcification of the aortic arch with tortuosity. There is vascular stent in the left subclavian region. There are diffuse degenerative changes of the visualized thoracic spine. Normal visualized ribs, clavicles, and shoulders. There is no demonstrated abnormality of the visualized soft tissue structures of the upper abdomen. RAD/Chest 1 View (Portable) IMPRESSION: Degenerative changes, as described above. No demonstrated acute cardiopulmonary process. Electronically Signed: Kamari Tucker MD at 16:45 EDT , Service support ,
[2019-03-26] MEDS: Ipratropium/Albuterol Sulfate 3 ML AMPUL.NEB INHALATION ×2 (16:38→21:35)
[2019-03-26 16:56] LABS: Anion Gap 8 (5-15); BUN 20 mg/dL (7-18); BUN/Creat Ratio 6.2 RATIO (10-20); Calcium,Total 8.1 mg/dL (8.5-10.1); Chloride 94 mmol/L (98-107); Creatinine, Serum 3.23 mg/dL (0.70-1.30); EST Glomerular Filtration Rate 21 mL/min (>60); Est Glom Filt Rate - Afr Amer 25 mL/min (>60); Glucose 96 mg/dL (74-106); Potassium 4.2 mmol/L (3.5-5.1); Sodium Level 133 mmol/L (136-145)
[2019-03-26 17:11] LABS: Absolute Lymphocyte Count 1.24 X10^3/ul (0.83-4.51); Absolute Neutrophil Count 10.2 X10^3/uL (2.0-7.7); Basophil# 0.04 X10^3/uL; Basophil% 0.3 % (0-1); Eosinophil# 0.25 X10^3/uL; Hematocrit 17.8 % (40-54); Lymphocyte # 1.24 X10^3/ul (4.0); Lymphocyte % 9.9 % (19-41); Mean Corp Hgb Conc 30.3 g/gl (32-36); Mean Corpuscular Hgb 32.9 pg (27.0-32.0); Mean Corpuscular Volume 108.5 fL (80-94); Mean Platelet Vol. 9.4 fl (6.2-12.0); Monocyte# 0.77 X10^3/uL; Monocyte% 6.2 % (0-10); Neutrophil # 10.15 X10^3/uL (2.7-7.7); Neutrophil % 81.4 % (47-70); Platelet Count 279 K/mm3 (150-450); RBC Distribution Width CV 17.5 % (11.6-14.6); RBC Distribution Width SD 65.7 fl (35.1-43.9); Red Blood Count 1.64 M/mm3 (4.6-6.2); White Blood Count 12.5 K/mm3 (4.4-11.0)
--- NOTE | 2019-03-26 17:11 | ED.RN ---
Leah ANDRADE called from dialysis, states she wanted to make sure we knew the AFIB was new onset for patient. Left call back number of [phone].
[2019-03-26 17:12] LABS: Differential Indicated SCAN CRITERIA MET; Hemoglobin 5.4 g/dl (13.0-16.5); POSITIVE COUNT YES; POSITIVE DIFFERENTIAL NO; POSITIVE MORPHOLOGY YES
[2019-03-26 17:41] LABS: Anisocytosis 1+; Platelet Estimate ADEQUATE (ADEQ); Red Cell Morphology N CHROM NORMAL (NORM C&C)
--- NOTE | 2019-03-26 17:43 | PCM.HP.STD ---
Problem List (1) ESRD (end stage renal disease) Status: Chronic (2) Stented coronary artery Status: Chronic Comment: 2003, JASON to circumflex ; 10/13/2009 tsfer from [facility] to [facility], total of 5 bare metal stents to RCA per Dr. Barrientos @ [facility]: 3.5 X 18 Chemist Steroids, followed distally by 3.0 X12 Chemist Steroids to distal RCA;3.5 X 15 Chemist Steroids, followed proximally by 4.0 X 18 Chemist Steroids to Mid RCA; 4.0 X 18 Chemist Steroids to Proximal RCA (3) S/P CABG x 3 Status: Chronic Comment: [facility] per Dr. Osito Hernandez: NICHOLAS to LAD, reverse SVG to OMbranch of CX, reverse SVG to PDA of RCA. PDA endarterectomy. (4) Diastolic CHF Status: Chronic Qualifiers: Heart failure chronicity: acute on chronic Qualified Code(s): I50.33 - Acute on chronic diastolic (congestive) heart failure (5) HLD (hyperlipidemia) Status: Chronic Qualifiers: Hyperlipidemia type: unspecified (6) HTN (hypertension) Status: Chronic Qualifiers: Hypertension type: essential hypertension (7) PAD (peripheral artery disease) Status: Chronic (8) COPD (chronic obstructive pulmonary disease) Status: Chronic Qualifiers: COPD type: unspecified COPD Qualified Code(s): J44.9 - Chronic obstructive pulmonary disease, unspecified (9) Tobacco dependence Status: Chronic (10) Anemia Status: Chronic Qualifiers: Anemia type: unspecified type Qualified Code(s): D64.9 - Anemia, unspecified (11) BPH (benign prostatic hyperplasia) Status: Chronic Qualifiers: Lower urinary tract symptom presence: unspecified whether lower urinary tract symptoms present History of Present Illness Date of Admission: 03/26/19 Chief Complaint: Abnormal blood work - low hemoglobin The patient is a 68 year old M with past medical history of ESRD on hemodialysis, hypertension, hyperlipidemia, COPD, not on oxygen, tobacco dependence who comes in with abnormal blood work. Patient went for dialysis today and his hemoglobin was 5.4. This was down from 8.3 a week ago. He complains of fatigue and feels weak with shortness of breath. He has history of end-ileostomy and has been having melena and bloody stools in his ileostomy bag. He supposed to follow-up with Dr. Henderson, but he is having a hard time getting in to see Dr. Henderson. Denied any chest pain no dizziness or palpitations. Vitals in the ED show temperature of 90 8F, heart rate 98, blood pressure 123/73, respiratory 21, SPO2 is 99% on room air. His admitting blood work showed WBC count of 12.5, hemoglobin 5.4, platelet count of 279, sodium is 132, potassium 4.2, chloride 94, PO2 and is 20, creatinine is 3.23, Troponins are 0.029. EKG shows no acute changes. His admitting chest x-ray showed no acute cardiopulmonary process. Past Medical History Past Medical History (Chronic Problems): Chronic Problems (Last Reviewed 03/02/19 @ 10:29 by Judith Powell) ESRD (end stage renal disease) (Chronic) History of non-ST elevation myocardial infarction (NSTEMI) (Chronic 01/21/11) History of right and left heart catheterization (Chronic 05/24/18) Patent NICHOLAS to LAD, SVG to 1st OM and SVG to RCA. Elevated right heart pressures, significant Diastolic dysfunction per cath done @ [facility], Dr. Barrientos Stented coronary artery (Chronic) 2003, JASON to circumflex ; 10/13/2009 tsfer from [facility] to [facility], total of 5 bare metal stents to RCA per Dr. Barrientos @ [facility]: 3.5 X 18 Chemist Steroids, followed distally by 3.0 X12 Chemist Steroids to distal RCA;3.5 X 15 Chemist Steroids, followed proximally by 4.0 X 18 Chemist Steroids to Mid RCA; 4.0 X 18 Chemist Steroids to Proximal RCA S/P CABG x 3 (Chronic 01/26/11) [facility] per Dr. Osito Hernandez: NICHOLAS to LAD, reverse SVG to OMbranch of CX, reverse SVG to PDA of RCA. PDA endarterectomy. Status post peripheral artery angioplasty with insertion of stent (Chronic ~2010) Right common iliac, [facility] Atherosclerotic heart disease of [place] coronary artery without angina pectoris (Chronic) 2003, JASON to circumflex ; 10/10/2009 tsfer from [facility] to [facility], total of 5 bare metal stents to RCA; CABG X 3 vessels @ [facility] 01/31/2011 (critical left main and restenosis of RCA stents) Diastolic CHF (Chronic) HLD (hyperlipidemia) (Chronic) HTN (hypertension) (Chronic) PAD (peripheral artery disease) (Chronic) COPD (chronic obstructive pulmonary disease) (Chronic) Tobacco dependence (Chronic) Anemia (Chronic) BPH (benign prostatic hyperplasia) (Chronic) Medical History: Medical History (Last Reviewed 03/02/19 @ 10:29 by Judith Powell) Problem with dialysis access (Acute) T82.898A History of non-ST elevation myocardial infarction (NSTEMI) (Chronic) Onset Date: 01/21/11 I25.2 Atherosclerotic heart disease of [place] coronary artery without angina pectoris (Chronic) I25.10 2003, JASON to circumflex ; 10/10/2009 tsfer from [facility] to [facility], total of 5 bare metal stents to RCA; CABG X 3 vessels @ [facility] 01/31/2011 (critical left main and restenosis of RCA stents) Diastolic CHF (Chronic) I50.30 HLD (hyperlipidemia) (Chronic) E78.5 HTN (hypertension) (Chronic) I10 PAD (peripheral artery disease) (Chronic) I73.9 COPD (chronic obstructive pulmonary disease) (Chronic) J44.9 Tobacco dependence (Chronic) F17.200 Anemia (Chronic) D64.9 BPH (benign prostatic hyperplasia) (Chronic) N40.0 Allergies irbesartan [From Avapro] Allergy (Severe, Verified 03/26/19 16:08) Blisters zolpidem [From Ambien] Adverse Reaction (Severe, Verified 03/26/19 16:08) made me go crazy, memory loss amoxicillin Adverse Reaction (Intermediate, Verified 03/26/19 16:08) Other TOLERATES ZOSYN PASSES BLOOD IN STOOL metronidazole [From Flagyl] Adverse Reaction (Verified 03/26/19 16:08) Other pt states he got palpitations and nose bleed. Home Medications: Ambulatory Orders Medication Instructions Recorded Albuterol Sulfate 2.5 mg IH Q4H PRN 11/13/18 Alprazolam [Xanax] 0.5 mg PO BID 11/13/18 Aspirin E.C. [Ecotrin] 81 mg PO DAILY@0800 11/13/18 Rosuvastatin Calcium [Crestor] 40 mg PO QHS 11/13/18 Tamsulosin HCl [Flomax] 0.8 mg PO DAILY 11/13/18 Metoprolol(XL)Succ [Toprol Xl 100 mg PO BID 12/06/18 (Beta Kadi)] Omeprazole [Prilosec] 20 mg PO BID #60 cap 01/23/19 ascorbate calcium (Vitamin C) 500 500 mg PO DAILY 03/02/19 mg tablet clopidogrel 75 mg tablet 75 mg PO DAILY 03/02/19 omega-3 fatty acids 1,000 mg 1,000 mg PO BID 03/02/19 capsule vitamin B complex-vitamin C-folic 1 tab PO DAILY 03/02/19 acid 0.8 mg tablet Cholecalciferol (VIT D3) [Vitamin 1,000 unit PO DAILY 03/26/19 D] Cyanocobalamin (Vitamin B-12) 2,500 mcg PO DAILY 03/26/19 [Vitamin B12] Folic Acid 0.4 mg PO DAILY@0800 03/26/19 Surgical History: Surgical History (Last Reviewed 03/02/19 @ 10:29 by Judith Powell) History of right and left heart catheterization (Chronic) Onset Date: 05/24/18 Z98.890 Patent NICHOLAS to LAD, SVG to 1st OM and SVG to RCA. Elevated right heart pressures, significant Diastolic dysfunction per cath done @ [facility], Dr. Barrientos Stented coronary artery (Chronic) Z95.5 2003, JASON to circumflex ; 10/13/2009 tsfer from [facility] to [facility], total of 5 bare metal stents to RCA per Dr. Barrientos @ [facility]: 3.5 X 18 Chemist Steroids, followed distally by 3.0 X12 Chemist Steroids to distal RCA;3.5 X 15 Chemist Steroids, followed proximally by 4.0 X 18 Chemist Steroids to Mid RCA; 4.0 X 18 Chemist Steroids to Proximal RCA S/P CABG x 3 (Chronic) Onset Date: 01/26/11 Z95.1 [facility] per [address]. Osito Hernandez: NICHOLAS to LAD, reverse SVG to OMbranch of CX, reverse SVG to PDA of RCA. PDA endarterectomy. history of surgically created arteriovenous fistula s/p fistulogram Onset Date: ~09/28/18 Surgical History: coronary bypass surgery, tonsillectomy, - - s/p left AV fistula, s/p Pleurx laparotomy, status post right and transverse colectomy Psychiatric History: No pertinent psych hx Lives: Spouse/ Significant Other Smoking Status: Current every day smoker Tobacco Use: Cigarettes Alcohol: None, Heavy - Drinks 2 beers a day Drugs: None - *Family History Maternal Family History: Family History (Last Reviewed 03/02/19 @ 10:29 by Judith Powell) Father CAD (coronary artery disease) Hypertension Kidney disease CVA (cerebral vascular accident) Other Cancer History Items: Heart Disease Paternal Family History: Family History (Last Reviewed 03/02/19 @ 10:29 by Judith Powell) Father CAD (coronary artery disease) Hypertension Kidney disease CVA (cerebral vascular accident) Other Cancer History Items: Heart Disease, Hypertension, Renal Disease Review of Systems Constitutional: Reports: Weakness, Fatigue. Denies: Anorexia, Chills, Fever, Weight Change Eyes: Denies: Blurred vision, Cataracts, Conjunctivae Inflammation, Pain, Redness, Vision Change HEENT: Denies: Difficulty Hearing, Difficulty Swallowing, Head Aches, Hearing Changes, Sinus Congestion, Sinus Drainage Cardiovascular: Denies: Chest Pain, Claudication, Chest Pressure, Orthopnea, Palpitations, Paroxysmal Noc. Dyspnea Respiratory: Denies: Cough, Hemoptysis, Shortness of breath at rest, Shortness of breath upon exertion, Sputum production Gastrointestinal: Denies: Abdominal Pain, Constipation, Hematemesis, Hematochezia, Nausea, Vomiting Genitourinary: Denies: Dysuria, Frequency, Incontinence Musculoskeletal: Denies: Joint Pain, Joint stiffness, Joint swelling, Joint Tenderness Skin: Denies: Rash, Skin Changes, Wounds Neurological: Denies: Difficulty swallowing, Focal weakness, Numbness, Tingling Psychiatric: Denies: Anxiety, Depression, Homicidal Ideations, Suicidal Ideations Hematologic/ Lymphatic: Denies: Easy Bruising, Easy Bleeding VTE Information - Inpt Only VTE Present on Admission: No VTE Pharm Prophylaxis ordered?: Yes - Physical Exam General: Alert, Oriented x3, Cooperative, - - Appears pale, unwell, in mild distress HEENT: Atraumatic, PERRLA, EOMI, Normocephalic Oral: Moist Mucosa Neck: Supple Lungs: Diminished Cardiovascular: Regular rate, Regular Rhythm, Normal S1, Normal S2, No murmurs Abdomen: Bowel Sounds Present, Soft, Non Tender, Non-Distended, Obese, - - Ileostomy has melena stools, watery Extremities: Edema - Bilateral, +2-3 Skin: No rashes Musculoskeletal: No Tenderness to Palpation of Joints or Extremities Lymphatic: No Cervical, Supraclavicular, or Inguinal Adenopathy Neurological: Cranial nerves II-XII grossly intact, Neuro grossly intact Psych/Mental Status: Normal Affect, Appropriate Vital Signs Temp Pulse Resp BP Pulse Ox 98 F 96 21 H 123/73 H 99 03/26/19 17:07 03/26/19 17:07 03/26/19 17:07 03/26/19 17:07 03/26/19 17:07 Oxygen Delivery Method Room Air Weight: 67.585 kg Body Mass Index (BMI) 24.7 Finger Stick Blood Glucose 200 Laboratory Tests Past 24 Hrs 03/26/19 03/26/19 03/26/19 16:25 16:40 16:40 WBC 12.5 H RBC 1.64 L Hgb 5.4 L* Hct 17.8 L MCV 108.5 H MCH 32.9 H MCHC 30.3 L RDW 17.5 H RDW Differential 65.7 H Plt Count 279 MPV 9.4 Immature Gran % (Auto) 0.200 Neut % (Auto) 81.4 H Lymph % (Auto) 9.9 L Dupage % (Auto) 6.2 Eos % (Auto) 2.0 Baso % (Auto) 0.3 Absolute Neuts (auto) 10.2 H Absolute Lymphs (auto) 1.24 Total Counted Not Reportable Platelet Estimate ADEQUATE RBC Morphology N CHROM Anisocytosis 1+ Sodium 133 L Potassium 4.2 Chloride 94 L Carbon Dioxide 31.0 Anion Gap 8 BUN 20 H Creatinine 3.23 H Estim Creat Clear Calc 19.30 Est GFR (MDRD) Af Amer 25 L Est GFR (MDRD) Non-Af 21 L BUN/Creatinine Ratio 6.2 L Glucose 96 Calcium 8.1 L Troponin I 0.029 Blood Type Pending Antibody Screen Pending Crossmatch See Detail Assessment/Plan All Active Problems (Last Reviewed 03/02/19 @ 10:29 by Judith Powell) Problem with dialysis access (Acute) Hyperkalemia (Acute) Colonic ischemia (Acute) 68 year old M with past medical history of ESRD on hemodialysis, hypertension, hyperlipidemia, COPD, not on oxygen, tobacco dependence who comes in with abnormal blood work. 1. Acute severe symptomatic anemia secondary to GI bleed, hemoglobin is 5.4, down from 8.3 a week ago. Plan: Admit to U, monitor on telemetry, transfuse 2 units of packed RBC, aim for a hemoglobin more than 8, General surgery consulted, continue on IV PPI, hold aspirin and Plavix, trend H&H, N.p.o. after midnight for possible EGD 2. ESRD on hemodialysis, follow-up with Dr. Alaniz, on dialysis 3. Hypertension/lipidemia/CAD status post CABG, status post stent, continue on metoprolol, statin Home aspirin and statin on hold 4. Nicotine dependence, on replacement 5. Leukocytosis, likely reactive, no signs of sepsis, will monitor 6. DVT prophylaxis-SCDs; current GI bleed Code Visit Inpatient E&M: 15074 Init Hosp L3 Procedures: 68982 Advncd Care Plan 30 Min
--- NOTE | 2019-03-26 17:46 | NURSING ---
PCU ACUTE SEVERE ANEMIA PAINTSIL
--- NOTE | 2019-03-26 17:50 | ED.VISSUMM ---
- ER Visit Summary Date of Service: 03/26/19 Chief Complaint: [Low hemoglobin] History of Present Illness: The patient is a 68 M [presents to the emergency department with concern for low hemoglobin. Patient states that he had dialysis today and check his hemoglobin noticed that it was 5.4. Patient has been feeling weak and short of breath. Patient states that he just feels terrible. Patient states that he is having episodes of low blood pressure at times. Patient denies any abdominal pain. Patient has had some dark stool from his colostomy. Patient states that he is had issues with some bleeding and dark stool from his colostomy for about 2 years now he is required several transfusions. Patient states that he was told that he was too high risk to have a colonoscopy or other investigative procedures. Patient does have a history of prior stroke, A. fib, diabetes, hypertension, high cholesterol, and end-stage renal disease. Patient is on Plavix and aspirin.] Physical Examination: [HEENT-PERRLA, EOMI. Cranial nerves II through XII grossly intact. TMs clear. Mucous membranes moist. No adenopathy. Cardiovascular-regular rate and rhythm without murmur or ectopy Lungs-minutes breath sounds bilaterally. Patient has expiratory wheezes throughout. Mild tachypnea. No accessory muscle use or retractions. Abdomen-normoactive bowel sounds, soft, nontender, no rebound or rigidity, no peritoneal signs.. Patient has a colostomy in the right lower quadrant with some dark stool noted. Extremities-intact ?4, normal range of motion, normal pulses, atraumatic] Test Results: [CBC with differential count 12.5, hemoglobin 5.4, hematocrit 17.8, platelets 279. Chemistries unremarkable. BUN was 20 g 3.23. Troponin was 0.024. Chest x-ray showed nothing acute.] Emergency Department Course and Treatment: [Patient was given a DuoNeb aerosol. Patient was typed and crossed for 2 units packed red cells. Case was discussed with hospitalist will evaluate patient for admission.] Treatment Plan: [Admit for blood transfusion] Disposition: [Admit] Impression: [Acute on chronic anemia COPD exacerbation] This note was generated with [employer]rev[employer] software. It may contain incorrect words, spelling, and punctuation that were not noted in review of the chart prior to signing ED Disposition - Plan for ED Patient: Referrals: Tania Berger, [facility] [Primary Care Provider] -
--- NOTE | 2019-03-26 17:53 | ED.DCSUM_ITS ---
- ER Visit Summary Date of Service: 03/26/19 Chief Complaint: [Low hemoglobin] History of Present Illness: The patient is a 68 M [presents to the emergency department with concern for low hemoglobin. Patient states that he had dialysis today and check his hemoglobin noticed that it was 5.4. Patient has been feeling weak and short of breath. Patient states that he just feels terrible. Patient states that he is having episodes of low blood pressure at times. Patient denies any abdominal pain. Patient has had some dark stool from his colostomy. Patient states that he is had issues with some bleeding and dark stool from his colostomy for about 2 years now he is required several transfusions. Patient states that he was told that he was too high risk to have a colonoscopy or other investigative procedures. Patient does have a history of prior stroke, A. fib, diabetes, hypertension, high cholesterol, and end-stage renal disease. Patient is on Plavix and aspirin.] Physical Examination: [HEENT-PERRLA, EOMI. Cranial nerves II through XII grossly intact. TMs clear. Mucous membranes moist. No adenopathy. Cardiovascular-regular rate and rhythm without murmur or ectopy Lungs-minutes breath sounds bilaterally. Patient has expiratory wheezes throughout. Mild tachypnea. No accessory muscle use or retractions. Abdomen-normoactive bowel sounds, soft, nontender, no rebound or rigidity, no peritoneal signs.. Patient has a colostomy in the right lower quadrant with some dark stool noted. Extremities-intact ?4, normal range of motion, normal pulses, atraumatic] Test Results: [CBC with differential count 12.5, hemoglobin 5.4, hematocrit 1 7.8, platelets 279. Chemistries unremarkable. BUN was 20 g 3.23. Troponin was 0.024. Chest x-ray showed nothing acute.] Emergency Department Course and Treatment: [Patient was given a DuoNeb aerosol. Patient was typed and crossed for 2 units packed red cells. Case was discussed with hospitalist will evaluate patient for admission.] Treatment Plan: [Admit for blood transfusion] Disposition: [Admit] Impression: [Acute on chronic anemia COPD exacerbation] This note was generated with [employer]ato[employer]ation software. It may contain incorrect words, spelling, and punctuation that were not noted in review of the chart prior to signing ED Disposition - Plan for ED Patient: Referrals: Tania Berger, [facility] [Primary Care Provider] -
[2019-03-26] MEDS: Metoprolol(XL)Succ 100 MG Tablet PO (21:23)
[2019-03-26] MEDS: Atorvastatin Calcium 80 MG Tablet PO (21:23)
[2019-03-26] MEDS: Furosemide 40 MG/4 ML Vial IV (23:22)
[2019-03-26] MEDS: 0.9% NaCl Peripheral Flush Adult/Peds IV (23:22)
[2019-03-26] MEDS: Acetaminophen 325 MG Tablet 650 MG PO (23:32)
[2019-03-27] VITALS (38 sets, daily range): BP systolic 90–166; BP diastolic 23–87; PULSE 57–130; RESP 12–265; TEMP 36.7–39.3; O2SAT 93–100; BMI 25.4
[2019-03-27 04:34] LABS: Albumin, Serum 2.3 g/dL (3.2-5.0); BUN 28 mg/dL (7-18); BUN/Creat Ratio 6.2 RATIO (10-20); Calcium,Total 7.7 mg/dL (8.5-10.1); Chloride 95 mmol/L (98-107); Creatinine, Serum 4.48 mg/dL (0.70-1.30); EST Glomerular Filtration Rate 14 mL/min (>60); Est Glom Filt Rate - Afr Amer 17 mL/min (>60); Estimated Creatinine Clearance 13.92 ml/min; Glucose 126 mg/dL (74-106); Phosphorus 2.1 mg/dL (2.5-4.9); Potassium 3.5 mmol/L (3.5-5.1); Sodium Level 138 mmol/L (136-145)
[2019-03-27] MEDS: 0.9% NaCl Peripheral Flush Adult/Peds IV (06:14)
[2019-03-27] MEDS: Ipratropium/Albuterol Sulfate 3 ML AMPUL.NEB INHALATION ×3 (07:13→19:21)
[2019-03-27 07:20] LABS: Absolute Lymphocyte Count 1.59 X10^3/ul (0.83-4.51); Basophil# 0.04 X10^3/uL; Basophil% 0.1 % (0-1); Eosinophil# 0.06 X10^3/uL; Eosinophils% 0.2 % (0-5); Hematocrit 22.8 % (40-54); Hemoglobin 7.2 g/dl (13.0-16.5); Lymphocyte # 1.59 X10^3/ul (4.0); Lymphocyte % 4.5 % (19-41); Mean Corp Hgb Conc 31.6 g/gl (32-36); Mean Corpuscular Hgb 32.9 pg (27.0-32.0); Mean Corpuscular Volume 104.1 fL (80-94); Mean Platelet Vol. 9.5 fl (6.2-12.0); Monocyte% 7.3 % (0-10); Neutrophil # 31.04 X10^3/uL (2.7-7.7); Neutrophil % 87.6 % (47-70); Platelet Count 277 K/mm3 (150-450); RBC Distribution Width CV 22.3 % (11.6-14.6); RBC Distribution Width SD 76.4 fl (35.1-43.9); Red Blood Count 2.19 M/mm3 (4.6-6.2)
[2019-03-27 07:37] LABS: POSITIVE COUNT YES; POSITIVE DIFFERENTIAL YES; POSITIVE MORPHOLOGY YES; White Blood Count 35.5 K/mm3 (4.4-11.0)
[2019-03-27 07:38] LABS: Absolute Nucleated RBC Count 0.06 10^3/uL (0-5); Differential Comment SCANNED; Differential Indicated SCAN CRITERIA MET; NRBC Flagged by Analyzer 0.2 % (0-5)
[2019-03-27 07:39] LABS: Anisocytosis 2+; Hypochromasia 3+; Macrocytosis 1+; Microcytosis RARE; Platelet Estimate ADEQUATE (ADEQ); Polychromasia 1+
--- NOTE | 2019-03-27 07:53 | CPS ---
pt decreased to 3 lpm...97&. nurse aware of change
--- NOTE | 2019-03-27 09:01 | PCM.CONS.GEN ---
Reason for Consult Date of Consultation: 03/27/19 History of Present Illness: The patient is a 68 year old M presented to the ER due to bright red blood per end ileostomy and anemia at 5.4 had dialysis. Patient states that last week on Tuesday he began prednisone for his COPD and he took that for 3 days and then he started noticing the bright red blood per the ileostomy. Patient states he has had bleeding per his GI tract for about 2 years however prior to the episode last week he stated his hemoglobin was improving. Patient has been on Protonix 40 mg p.o. twice daily at home. In November patient did have ischemic right colon/proximal transverse colon. Patient underwent an end ileostomy and mucous fistula. Patient states he has been getting some mucus out of the mucus fistula once or twice in the last week. Patient is normally on 2 L of oxygen at night. On admit patient's white blood count is 12.5; however this morning is 35.5 he did receive 2 units of packed red blood cells overnight and did have a fever 102.8 during the night and tachycardia from midnight-2AM up to 120, now pulse 90 and fever resolved. Last troponin check also elevated at 0.386. Patient denies any abdominal pain nausea or vomiting. Past Medical History Past Medical History (Chronic Problems): Chronic Problems (Last Reviewed 03/02/19 @ 10:29 by Judith Powell) ESRD (end stage renal disease) (Chronic) History of non-ST elevation myocardial infarction (NSTEMI) (Chronic 01/21/11) History of right and left heart catheterization (Chronic 05/24/18) Patent NICHOLAS to LAD, SVG to 1st OM and SVG to RCA. Elevated right heart pressures, significant Diastolic dysfunction per cath done @ [facility], Dr. Barrientos Stented coronary artery (Chronic) 2003, JASON to circumflex ; 10/13/2009 tsfer from [facility] to [facility], total of 5 bare metal stents to RCA per Dr. Barrientos @ [facility]: 3.5 X 18 [employer]visor, followed distally by 3.0 X12 [employer] Supervisor to distal RCA;3.5 X 15 [employer] Supervisor, followed proximally by 4.0 X 18 [employer] Supervisor to Mid RCA; 4.0 X 18 [employer] Supervisor to Proximal RCA S/P CABG x 3 (Chronic 01/26/11) [facility] per Dr. Osito Hernandez: NICHOLAS to LAD, reverse SVG to OMbranch of CX, reverse SVG to PDA of RCA. PDA endarterectomy. Status post peripheral artery angioplasty with insertion of stent (Chronic ~2010) Right common iliac, [facility] Atherosclerotic heart disease of [place] coronary artery without angina pectoris (Chronic) 2004, JASON to circumflex ; 10/10/2009 tsfer from [facility] to [facility], total of 5 bare metal stents to RCA; CABG X 3 vessels @ [facility] 01/31/2011 (critical left main and restenosis of RCA stents) Diastolic CHF (Chronic) HLD (hyperlipidemia) (Chronic) HTN (hypertension) (Chronic) PAD (peripheral artery disease) (Chronic) COPD (chronic obstructive pulmonary disease) (Chronic) Tobacco dependence (Chronic) Anemia (Chronic) BPH (benign prostatic hyperplasia) (Chronic) Medical History: Medical History (Last Reviewed 03/02/19 @ 10:29 by Judith Powell) Problem with dialysis access (Acute) T82.898A History of non-ST elevation myocardial infarction (NSTEMI) (Chronic) Onset Date: 01/21/11 I25.2 Atherosclerotic heart disease of [place] coronary artery without angina pectoris (Chronic) I25.10 2003, JASON to circumflex ; 10/10/2009 tsfer from [facility] to [facility], total of 5 bare metal stents to RCA; CABG X 3 vessels @ [facility] 01/31/2011 (critical left main and restenosis of RCA stents) Diastolic CHF (Chronic) I50.30 HLD (hyperlipidemia) (Chronic) E78.5 HTN (hypertension) (Chronic) I10 PAD (peripheral artery disease) (Chronic) I73.9 COPD (chronic obstructive pulmonary disease) (Chronic) J44.9 Tobacco dependence (Chronic) F17.200 Anemia (Chronic) D64.9 BPH (benign prostatic hyperplasia) (Chronic) N40.0 Allergies irbesartan [From Avapro] Allergy (Severe, Verified 03/26/19 16:08) Blisters zolpidem [From Ambien] Adverse Reaction (Severe, Verified 03/26/19 16:08) made me go crazy, memory loss amoxicillin Adverse Reaction (Intermediate, Verified 03/26/19 16:08) Other TOLERATES ZOSYN PASSES BLOOD IN STOOL metronidazole [From Flagyl] Adverse Reaction (Verified 03/26/19 16:08) Other pt states he got palpitations and nose bleed. Home Medications: Ambulatory Orders Medication Instructions Recorded Albuterol Sulfate 2.5 mg IH Q4H PRN 11/13/18 Alprazolam [Xanax] 0.5 mg PO BID 11/13/18 Aspirin E.C. [Ecotrin] 81 mg PO DAILY@0800 11/13/18 Rosuvastatin Calcium [Crestor] 40 mg PO QHS 11/13/18 Tamsulosin HCl [Flomax] 0.8 mg PO DAILY 11/13/18 Metoprolol(XL)Succ [Toprol Xl 100 mg PO BID 12/06/18 (Beta Kadi)] Omeprazole [Prilosec] 20 mg PO BID #60 cap 01/23/19 ascorbate calcium (Vitamin C) 500 500 mg PO DAILY 03/02/19 mg tablet clopidogrel 75 mg tablet 75 mg PO DAILY 03/02/19 omega-3 fatty acids 1,000 mg 1,000 mg PO BID 03/02/19 capsule vitamin B complex-vitamin C-folic 1 tab PO DAILY 03/02/19 acid 0.8 mg tablet Cholecalciferol (VIT D3) [Vitamin 1,000 unit PO DAILY 03/26/19 D] Cyanocobalamin (Vitamin B-12) 2,500 mcg PO DAILY 03/26/19 [Vitamin B12] Folic Acid 0.4 mg PO DAILY@0800 03/26/19 Surgical History: Surgical History (Last Reviewed 03/02/19 @ 10:29 by Judith Powell) History of right and left heart catheterization (Chronic) Onset Date: 05/24/18 Z98.890 Patent NICOHLAS to LAD, SVG to 1st OM and SVG to RCA. Elevated right heart pressures, significant Diastolic dysfunction per cath done @ [facility], Dr. Barrientos Stented coronary artery (Chronic) Z95.5 2003, JASON to circumflex ; 10/13/2009 tsfer from [facility] to [facility], total of 5 bare metal stents to RCA per Dr. Barrientos @ [facility]: 3.5 X 18 [employer] Supervisor, followed distally by 3.0 X12 [employer] Supervisor to distal RCA;3.5 X 15 [employer] Supervisor, followed proximally by 4.0 X 18 [employer] Supervisor to Mid RCA; 4.0 X 18 [employer] Supervisor to Proximal RCA S/P CABG x 3 (Chronic) Onset Date: 01/26/11 Z95.1 [facility] per Dr. Osito Hernandez: NICHOLAS to LAD, reverse SVG to OMbranch of CX, reverse SVG to PDA of RCA. PDA endarterectomy. history of surgically created arteriovenous fistula s/p fistulogram Onset Date: ~09/28/18 Surgical History: coronary bypass surgery, tonsillectomy, - - s/p left AV fistula, s/p Pleurx laparotomy, status post right and transverse colectomy Psychiatric History: No pertinent psych hx Lives: Spouse/ Significant Other Smoking Status: Current every day smoker Tobacco Use: Cigarettes Alcohol: None, Heavy - Drinks 2 beers a day Drugs: None - *Family History Maternal Family History: Family History (Last Reviewed 03/02/19 @ 10:29 by Judith Powell) Father CAD (coronary artery disease) Hypertension Kidney disease CVA (cerebral vascular accident) Other Cancer History Items: Heart Disease Paternal Family History: Family History (Last Reviewed 03/02/19 @ 10:29 by Judith Powell) Father CAD (coronary artery disease) Hypertension Kidney disease CVA (cerebral vascular accident) Other Cancer History Items: Heart Disease, Hypertension, Renal Disease Review of Systems Constitutional: Reports: Fever Eyes: Denies: Blurred vision Respiratory: Reports: Shortness of Breath Gastrointestinal: Reports: Hematochezia, Melena. Denies: Abdominal Pain, Nausea, Vomiting Genitourinary: Denies: Dysuria Psychiatric: Reports: Anxiety - Physical Exam General: Alert, Cooperative, No apparent distress HEENT: Atraumatic Lungs: Normal air movement Cardiovascular: Regular rate Abdomen: Soft, Non Tender, Non-Distended, Passing Flatus - Gas in the end ileostomy, - - In the ileostomy pink, dark brown/blackish stool in bag, mucous fistula pink no signs of any infection, midline incision well-healed Extremities: Edema Skin: No rashes Neurological: Cranial nerves II-XII grossly intact Vital Signs Temp Pulse Resp BP Pulse Ox 98.3 F 90 16 114/54 L 97 03/27/19 08:30 03/27/19 07:13 03/27/19 07:13 03/27/19 06:55 03/27/19 07:13 Oxygen Flow Rate (L/min) 3 Oxygen Delivery Method Nasal Cannula Weight: 152 lb 12.485 oz Body Mass Index (BMI) 25.4 Finger Stick Blood Glucose 200 Intake and Output for Last 24 Hours 03/25/19 03/26/19 03/27/19 23:59 23:59 23:59 Intake Total 586 / 586 987 / 987 Output Total 60 / 60 Balance 526 / 526 987 / 987 Microbiology Past 72 Hours 03/27/19 05:40 Stool Occult Blood (ESA) - Final Stool Occult Blood Positive Laboratory Tests Past 24 Hrs 03/26/19 03/26/19 03/26/19 16:25 16:40 16:40 WBC 12.5 H RBC 1.64 L Hgb 5.4 L* Hct 17.8 L MCV 108.5 H MCH 32.9 H MCHC 30.3 L RDW 17.5 H RDW Differential 65.7 H Plt Count 279 MPV 9.4 Immature Gran % (Auto) 0.200 Neut % (Auto) 81.4 H Lymph % (Auto) 9.9 L [place] % (Auto) 6.2 Eos % (Auto) 2.0 Baso % (Auto) 0.3 Absolute Neuts (auto) 10.2 H Absolute Lymphs (auto) 1.24 Total Counted Not Reportable Nucleated RBC % Differential Comment Diff Path Review Platelet Estimate ADEQUATE RBC Morphology N CHROM Polychromasia Hypochromasia Anisocytosis 1+ Microcytosis Macrocytosis Absolute Retic Sodium 133 L Potassium 4.2 Chloride 94 L Carbon Dioxide 31.0 Anion Gap 8 BUN 20 H Creatinine 3.23 H Estim Creat Clear Calc 19.30 Est GFR (MDRD) Af Amer 25 L Est GFR (MDRD) Non-Af 21 L BUN/Creatinine Ratio 6.2 L Glucose 96 Calcium 8.1 L Phosphorus Troponin I 0.029 Albumin Blood Type Cancelled Antibody Screen Cancelled Crossmatch See Detail 03/26/19 03/26/19 03/27/19 18:25 22:30 00:45 WBC RBC Hgb Hct MCV MCH MCHC RDW RDW Differential Plt Count MPV Immature Gran % (Auto) Neut % (Auto) Lymph % (Auto) [place] % (Auto) Eos % (Auto) Baso % (Auto) Absolute Neuts (auto) Absolute Lymphs (auto) Total Counted Nucleated RBC % Differential Comment Diff Path Review Platelet Estimate RBC Morphology Polychromasia Hypochromasia Anisocytosis Microcytosis Macrocytosis Absolute Retic Sodium Potassium Chloride Carbon Dioxide Anion Gap BUN Creatinine Estim Creat Clear Calc Est GFR (MDRD) Af Amer Est GFR (MDRD) Non-Af BUN/Creatinine Ratio Glucose Calcium Phosphorus Troponin I 0.037 0.083 H Albumin Blood Type A NEGATIVE Antibody Screen NEGATIVE Crossmatch See Detail 03/27/19 03/27/19 03/27/19 03:46 03:46 06:55 WBC 35.5 H* RBC 2.19 L Hgb 7.2 L Hct 22.8 L MCV 104.1 H MCH 32.9 H MCHC 31.6 L RDW 22.3 H RDW Differential 76.4 H Plt Count 277 MPV 9.5 Immature Gran % (Auto) 0.300 Neut % (Auto) 87.6 H Lymph % (Auto) 4.5 L [place] % (Auto) 7.3 Eos % (Auto) 0.2 Baso % (Auto) 0.1 Absolute Neuts (auto) 31.0 H Absolute Lymphs (auto) 1.59 Total Counted Not Reportable Nucleated RBC % 0.2 Differential Comment SCANNED Diff Path Review May foll Platelet Estimate ADEQUATE RBC Morphology Polychromasia 1+ Hypochromasia 3+ Anisocytosis 2+ Microcytosis RARE Macrocytosis 1+ Absolute Retic 0.06 Sodium 138 Potassium 3.5 Chloride 95 L Carbon Dioxide 31.0 Anion Gap BUN 28 H Creatinine 4.48 H Estim Creat Clear Calc 13.92 Est GFR (MDRD) Af Amer 17 L Est GFR (MDRD) Non-Af 14 L BUN/Creatinine Ratio 6.2 L Glucose 126 H Calcium 7.7 L Phosphorus 2.1 L Troponin I 0.386 H Albumin 2.3 L Blood Type Antibody Screen Crossmatch Assessment/Plan All Active Problems (Last Reviewed 03/02/19 @ 10:29 by Judith Powell) Problem with dialysis access (Acute) Hyperkalemia (Acute) Colonic ischemia (Acute) 68-year-old male with bright red blood per end ileostomy, anemia s/p 2 units PRBC, leukocytosis, elevated troponin 1. Anemia?patient to get 2 units packed red blood cells hemoglobin went from 5.4-7.2 this morning. Patient is scheduled to get an EGD with Dr. Henderson at 1130 this morning, depending on patient's repeat troponin I have discussed the above with the patient. I have offered the patient EGD possible biopsy for evaluation. I have explained the risks/benefits of the procedure and described the procedure. I have discussed the risks with the patient, including but not limited to: infection, bleeding, perforation of the GI tract requiring emergency surgery, inability to complete the procedure, bleeding unable to be controlled may require transfer to another facility, injury to any internal organs, complications of anesthesia, etc. - the patient understands and agrees to proceed. I have answered all the patient's questions to the patient's satisfaction and the patient has no further questions. 2. Leukocytosis?patient's white blood count was 12.4 yesterday this morning is 35.5. Patient did receive 2 units of packed red blood cells yesterday which brought his hemoglobin from 5.4-7.2. Question if this could be a reaction due to transfusion. Positive discussed with Haven KOHLI and she will check urine and chest x-ray. Patient's abdomen is soft he denies any abdominal pain nausea or vomiting. 3. Patient's last check of his troponin is elevated at 0.386 two previous were within normal range, discussed with Haven KOHLI -- will plan to get stat troponin and pending results may also consult cardiology. Lizzie Tavares M.D. Pager: [phone] [facility] [address] [place] [address], [facility], [address] [place] [address] Office: [phone] Code Visit Inpatient E&M: 26350 Init Hosp L2
--- NOTE | 2019-03-27 09:03 | RAD_ITS ---
STUDY: X-RAY CHEST REASON FOR EXAM: Male, 68 years old. Shortness of breath. Fever and anemia. TECHNIQUE: Single AP portable view of the chest. COMPARISON: Comparison is made with prior study dated March 26, 2019. FINDINGS: EKG electrodes are seen. Since prior study, there has been a progression of the bibasilar infiltrates. Blunting of both costophrenic angles. Sternal cerclage wires and vascular clips are present from a prior sternotomy and coronary artery bypass graft procedure (CABG). Normal mediastinum and justyn. Normal visualized pulmonary arteries. There is atherosclerotic calcification of the aortic arch with tortuosity. There are diffuse degenerative changes of the visualized thoracic spine. Normal visualized ribs, clavicles, and shoulders. There is no demonstrated abnormality of the visualized soft tissue structures of the upper abdomen. RAD/Chest 1 View (Portable) IMPRESSION: Progressive bibasilar infiltrates. Blunting of both costophrenic angles. Electronically Signed: Deven Hensley, at 10:51 EDT , Service support ,
--- NOTE | 2019-03-27 09:06 | CON.PCM_ITS ---
Reason for Consult Date of Consultation: 03/27/19 History of Present Illness: The patient is a 68 year old M presented to the ER due to bright red blood per end ileostomy and anemia at 5.4 had dialysis. Patient states that last week on Tuesday he began prednisone for his COPD and he took that for 3 days and then he started noticing the bright red blood per the ileostomy. Patient states he has had bleeding per his GI tract for about 2 years however prior to the episode last week he stated his hemoglobin was improving. Patient has been on Protonix 40 mg p.o. twice daily at home. In November patient did have ischemic right colon/proximal transverse colon. Patient underwent an end ileostomy and mucous fistula. Patient states he has been getting some mucus out of the mucus fistula once or twice in the last week. Patient is normally on 2 L of oxygen at night. On admit patient's white blood count is 12.5; however this morning is 35.5 he did receive 2 units of packed red blood cells overnight and did have a fever 102.8 during the night and tachycardia from midnight-2AM up to 120, now pulse 90 and fever resolved. Last troponin check also elevated at 0.386. Patient denies any abdominal pain nausea or vomiting. Past Medical History Past Medical History (Chronic Problems): Chronic Problems (Last Reviewed 03/02/19 @ 10:29 by Judith Powell) ESRD (end stage renal disease) (Chronic) History of non-ST elevation myocardial infarction (NSTEMI) (Chronic 01/21/11) History of right and left heart catheterization (Chronic 05/24/18) Patent NICHOLAS to LAD, SVG to 1st OM and SVG to RCA. Elevated right heart pressures, significant Diastolic dysfunction per cath done @ [facility], Dr. Barrientos Stented coronary artery (Chronic) 2003, JASON to circumflex ; 10/13/2009 tsfer from [facility] to [facility], total of 5 bare metal stents to RCA per Dr. Barrientos @ [facility]: 3.5 X 18 E D Tech, followed distally by 3.0 X12 E D Tech to distal RCA;3.5 X 15 E D Tech, followed proximally by 4.0 X 18 E D Tech to Mid RCA; 4.0 X 18 E D Tech to Proximal RCA S/P CABG x 3 (Chronic 01/26/11) [facility] per Dr. Osito Hernandez: NICHOLAS to LAD, reverse SVG to OMbranch of CX, reverse SVG to PDA of RCA. PDA endarterectomy. 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) 2004, JASON to circumflex ; 10/10/2009 tsfer from [facility] to [facility], total of 5 bare metal stents to RCA; CABG X 3 vessels @ [facility] 01/31/2011 (critical left main and restenosis of RCA stents) Diastolic CHF (Chronic) HLD (hyperlipidemia) (Chronic) HTN (hypertension) (Chronic) PAD (peripheral artery disease) (Chronic) COPD (chronic obstructive pulmonary disease) (Chronic) Tobacco dependence (Chronic) Anemia (Chronic) BPH (benign prostatic hyperplasia) (Chronic) Medical History: Medical History (Last Reviewed 03/02/19 @ 10:29 by Judith Powell) Problem with dialysis access (Acute) T82.898A History of non-ST elevation myocardial infarction (NSTEMI) (Chronic) Onset Date: 01/21/11 I25.2 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) I25.10 2003, JASON to circumflex ; 10/10/2009 tsfer from [facility] to [facility], total of 5 bare metal stents to RCA; CABG X 3 vessels @ [facility] 01/31/2011 (critical left main and restenosis of RCA stents) Diastolic CHF (Chronic) I50.30 HLD (hyperlipidemia) (Chronic) E78.5 HTN (hypertension) (Chronic) I10 PAD (peripheral artery disease) (Chronic) I73.9 COPD (chronic obstructive pulmonary disease) (Chronic) J44.9 Tobacco dependence (Chronic) F17.200 Anemia (Chronic) D64.9 BPH (benign prostatic hyperplasia) (Chronic) N40.0 Allergies irbesartan [From Avapro] Allergy (Severe, Verified 03/26/19 16:08) Blisters zolpidem [From Ambien] Adverse Reaction (Severe, Verified 03/26/19 16:08) made me go crazy, memory loss amoxicillin Adverse Reaction (Intermediate, Verified 03/26/19 16:08) Other TOLERATES ZOSYN PASSES BLOOD IN STOOL metronidazole [From Flagyl] Adverse Reaction (Verified 03/26/19 16:08) Other pt states he got palpitations and nose bleed. Home Medications: Ambulatory Orders Medication Instructions Recorded Albuterol Sulfate 2.5 mg IH Q4H PRN 11/13/18 Alprazolam [Xanax] 0.5 mg PO BID 11/13/18 Aspirin E.C. [Ecotrin] 81 mg PO DAILY@0800 11/13/18 Rosuvastatin Calcium [Crestor] 40 mg PO QHS 11/13/18 Tamsulosin HCl [Flomax] 0.8 mg PO DAILY 11/13/18 Metoprolol(XL)Succ [Toprol Xl 100 mg PO BID 12/06/18 (Beta Kadi)] Omeprazole [Prilosec] 20 mg PO BID #60 cap 01/23/19 ascorbate calcium (Vitamin C) 500 500 mg PO DAILY 03/02/19 mg tablet clopidogrel 75 mg tablet 75 mg PO DAILY 03/02/19 omega-3 fatty acids 1,000 mg 1,000 mg PO BID 03/02/19 capsule vitamin B complex-vitamin C-folic 1 tab PO DAILY 03/02/19 acid 0.8 mg tablet Cholecalciferol (VIT D3) [Vitamin 1,000 unit PO DAILY 03/26/19 D] Cyanocobalamin (Vitamin B-12) 2,500 mcg PO DAILY 03/26/19 [Vitamin B12] Folic Acid 0.4 mg PO DAILY@0800 03/26/19 Surgical History: Surgical History (Last Reviewed 03/02/19 @ 10:29 by Judith Powell) History of right and left heart catheterization (Chronic) Onset Date: 05/24/18 Z98.890 Patent NICHOLAS to LAD, SVG to 1st OM and SVG to RCA. Elevated right heart pressures, significant Diastolic dysfunction per cath done @ [facility], Dr. Barrientos Stented coronary artery (Chronic) Z95.5 2003, JASON to circumflex ; 10/13/2009 tsfer from [facility] to [facility], total of 5 bare metal stents to RCA per Dr. Barrientos @ [facility]: 3.5 X 18 E D Tech, followed distally by 3.0 X12 E D Tech to distal RCA;3.5 X 15 E D Tech, followed proximally by 4.0 X 18 E D Tech to Mid RCA; 4.0 X 18 E D Tech to Proximal RCA S/P CABG x 3 (Chronic) Onset Date: 01/26/11 Z95.1 [facility] per Dr. Osito Hernandez: NICHOLAS to LAD, reverse SVG to OMbranch of CX, reverse SVG to PDA of RCA. PDA endarterectomy. history of surgically created arteriovenous fistula s/p fistulogram Onset Date: ~09/28/18 Surgical History: coronary bypass surgery, tonsillectomy, - - s/p left AV fistula, s/p Pleurx laparotomy, status post right and transverse colectomy Psychiatric History: No pertinent psych hx Lives: Spouse/ Significant Other Smoking Status: Current every day smoker Tobacco Use: Cigarettes Alcohol: None, Heavy - Drinks 2 beers a day Drugs: None - *Family History Maternal Family History: Family History (Last Reviewed 03/02/19 @ 10:29 by Judith Powell) Father CAD (coronary artery disease) Hypertension Kidney disease CVA (cerebral vascular accident) Other Cancer History Items: Heart Disease Paternal Family History: Family History (Last Reviewed 03/02/19 @ 10:29 by Judith Powell) Father CAD (coronary artery disease) Hypertension Kidney disease CVA (cerebral vascular accident) Other Cancer History Items: Heart Disease, Hypertension, Renal Disease Review of Systems Constitutional: Reports: Fever Eyes: Denies: Blurred vision Respiratory: Reports: Shortness of Breath Gastrointestinal: Reports: Hematochezia, Melena. Denies: Abdominal Pain, Nausea, Vomiting Genitourinary: Denies: Dysuria Psychiatric: Reports: Anxiety - Physical Exam General: Alert, Cooperative, No apparent distress HEENT: Atraumatic Lungs: Normal air movement Cardiovascular: Regular rate Abdomen: Soft, Non Tender, Non-Distended, Passing Flatus - Gas in the end ileostomy, - - In the ileostomy pink, dark brown/blackish stool in bag, mucous fistula pink no signs of any infection, midline incision well-healed Extremities: Edema Skin: No rashes Neurological: Cranial nerves II-XII grossly intact Vital Signs Temp Pulse Resp BP Pulse Ox 98.3 F 90 16 114/54 L 97 03/27/19 08:30 03/27/19 07:13 03/27/19 07:13 03/27/19 06:55 03/27/19 07:13 Oxygen Flow Rate (L/min) 3 Oxygen Delivery Method Nasal Cannula Weight: 152 lb 12.485 oz Body Mass Index (BMI) 25.4 Finger Stick Blood Glucose 200 Intake and Output for Last 24 Hours 03/25/19 03/26/19 03/27/19 23:59 23:59 23:59 Intake Total 586 / 586 987 / 987 Output Total 60 / 60 Balance 526 / 526 987 / 987 Microbiology Past 72 Hours 03/27/19 05:40 Stool Occult Blood (ESA) - Final Stool Occult Blood Positive Laboratory Tests Past 24 Hrs 03/26/19 03/26/19 03/26/19 16:25 16:40 16:40 WBC 12.5 H RBC 1.64 L Hgb 5.4 L* Hct 17.8 L MCV 108.5 H MCH 32.9 H MCHC 30.3 L RDW 17.5 H RDW Differential 65.7 H Plt Count 279 MPV 9.4 Immature Gran % (Auto) 0.200 Neut % (Auto) 81.4 H Lymph % (Auto) 9.9 L Dickey % (Auto) 6.2 Eos % (Auto) 2.0 Baso % (Auto) 0.3 Absolute Neuts (auto) 10.2 H Absolute Lymphs (auto) 1.24 Total Counted Not Reportable Nucleated RBC % Differential Comment Diff Path Review Platelet Estimate ADEQUATE RBC Morphology N CHROM Polychromasia Hypochromasia Anisocytosis 1+ Microcytosis Macrocytosis Absolute Retic Sodium 133 L Potassium 4.2 Chloride 94 L Carbon Dioxide 31.0 Anion Gap 8 BUN 20 H Creatinine 3.23 H Estim Creat Clear Calc 19.30 Est GFR (MDRD) Af Amer 25 L Est GFR (MDRD) Non-Af 21 L BUN/Creatinine Ratio 6.2 L Glucose 96 Calcium 8.1 L Phosphorus Troponin I 0.029 Albumin Blood Type Cancelled Antibody Screen Cancelled Crossmatch See Detail 03/26/19 03/26/19 03/27/19 18:25 22:30 00:45 WBC RBC Hgb Hct MCV MCH MCHC RDW RDW Differential Plt Count MPV Immature Gran % (Auto) Neut % (Auto) Lymph % (Auto) Dickey % (Auto) Eos % (Auto) Baso % (Auto) Absolute Neuts (auto) Absolute Lymphs (auto) Total Counted Nucleated RBC % Differential Comment Diff Path Review Platelet Estimate RBC Morphology Polychromasia Hypochromasia Anisocytosis Microcytosis Macrocytosis Absolute Retic Sodium Potassium Chloride Carbon Dioxide Anion Gap BUN Creatinine Estim Creat Clear Calc Est GFR (MDRD) Af Amer Est GFR (MDRD) Non-Af BUN/Creatinine Ratio Glucose Calcium Phosphorus Troponin I 0.037 0.083 H Albumin Blood Type A NEGATIVE Antibody Screen NEGATIVE Crossmatch See Detail 03/27/19 03/27/19 03/27/19 03:46 03:46 06:55 WBC 35.5 H* RBC 2.19 L Hgb 7.2 L Hct 22.8 L MCV 104.1 H MCH 32.9 H MCHC 31.6 L RDW 22.3 H RDW Differential 76.4 H Plt Count 277 MPV 9.5 Immature Gran % (Auto) 0.300 Neut % (Auto) 87.6 H Lymph % (Auto) 4.5 L Dickey % (Auto) 7.3 Eos % (Auto) 0.2 Baso % (Auto) 0.1 Absolute Neuts (auto) 31.0 H Absolute Lymphs (auto) 1.59 Total Counted Not Reportable Nucleated RBC % 0.2 Differential Comment SCANNED Diff Path Review May foll Platelet Estimate ADEQUATE RBC Morphology Polychromasia 1+ Hypochromasia 3+ Anisocytosis 2+ Microcytosis RARE Macrocytosis 1+ Absolute Retic 0.06 Sodium 138 Potassium 3.5 Chloride 95 L Carbon Dioxide 31.0 Anion Gap BUN 28 H Creatinine 4.48 H Estim Creat Clear Calc 13.92 Est GFR (MDRD) Af Amer 17 L Est GFR (MDRD) Non-Af 14 L BUN/Creatinine Ratio 6.2 L Glucose 126 H Calcium 7.7 L Phosphorus 2.1 L Troponin I 0.386 H Albumin 2.3 L Blood Type Antibody Screen Crossmatch Assessment/Plan All Active Problems (Last Reviewed 03/02/19 @ 10:29 by Judith Powell) Problem with dialysis access (Acute) Hyperkalemia (Acute) Colonic ischemia (Acute) 68-year-old male with bright red blood per end ileostomy, anemia s/p 2 units PRBC, leukocytosis, elevated troponin 1. Anemia?patient to get 2 units packed red blood cells hemoglobin went from 5.4-7.2 this morning. Patient is scheduled to get an EGD with Dr. Henderson at 1130 this morning, depending on patient's repeat troponin I have discussed the above with the patient. I have offered the patient EGD possible biopsy for evaluation. I have explained the risks/benefits of the procedure and described the procedure. I have discussed the risks with the patient, including but not limited to: infection, bleeding, perforation of the GI tract requiring emergency surgery, inability to complete the procedure, bleeding unable to be controlled may require transfer to another facility, injury to any internal organs, complications of anesthesia, etc. - the patient understands and agrees to proceed. I have answered all the patient's questions to the patient's satisfaction and the patient has no further questions. 2. Leukocytosis?patient's white blood count was 12.4 yesterday this morning is 35.5. Patient did receive 2 units of packed red blood cells yesterday which brought his hemoglobin from 5.4-7.2. Question if this could be a reaction due to transfusion. Positive discussed with Haven KOHLI and she will check urine and chest x-ray. Patient's abdomen is soft he denies any abdominal pain nausea or vomiting. 3. Patient's last check of his troponin is elevated at 0.386 two previous were within normal range, discussed with Haven KOHLI -- will plan to get stat troponin and pending results may also consult cardiology. Lizzie Tavares M.D. Pager: [phone] [facility] [address] [place] [address], [facility], [address] [place] [address] Office: [phone] Code Visit Inpatient E&M: [id number] Init Hosp L2
--- NOTE | 2019-03-27 12:44 | PCM.PN.BLA ---
Progress Note I performed endoscopy today. EGD was normal. There was no ulcer or lesion in the stomach or duodenum. No old or new bleeding in the stomach or duodenum. Okay for diet from my standpoint. If he continues to bleed I would recommend capsule endoscopy. Armen Henderson MD Pager: [facility] [address] [place] [address], [address] [place] [address] Office:
--- NOTE | 2019-03-27 12:45 | PN_ITS ---
Progress Note I performed endoscopy today. EGD was normal. There was no ulcer or lesion in the stomach or duodenum. No old or new bleeding in the stomach or duodenum. Okay for diet from my standpoint. If he continues to bleed I would recommend capsule endoscopy. Armen Henderson MD Pager: [facility] [address] [place] [address], [address] [place] [address] Office:
--- NOTE | 2019-03-27 12:48 | OP.ENDO_ITS ---
03/27/2019 Tania Berger Re : Upper GI endoscopy procedure for Kelvin Juarezr Ab This procedure was performed on Wednesday, March 27, 2019. My impressions and recommendations are as follows: Impressions : - Normal esophagus. - Normal stomach. - Normal examined duodenum. - No specimens collected. Recommendations : - [facility]. - Resume regular diet. - Continue present medications. My findings are described in the full procedure note, which is enclosed. If I can be of further assistance, please feel free to contact me at Doctor phone number(s): , Work: . Sincerely, Armen Henderson MD 03/27/2019 12:48:02 PM This report has been signed electronically.
--- NOTE | 2019-03-27 13:30 | CASEMGMT ---
RAYMOND SPENCER assessment: Face to Face with patient for initial transition planning/care coordination assessment. RAYMOND SPENCER introduced self and role at [facility], pt voices understanding and consents to assessment at this time. Pt is sitting up on side of bed in no distress at this time. Pt is A/Ox4 at this time and answers all questions appropriately at this time. Pt's is at bedside during assessment. Care providers, pharmacy, and demographics verified at this time. PCP: Terra Berger Specialists: Corbin, nephro; James, cardio in [place] Preferred Pharmacy: [facility] [place] Insurance: [facility] Prescription Benefit: [facility] Living Will/HPOA: Pt states does not currently have LW/HPOA but is interested in completing AD at this time. Sofya SW aware, voices understanding. LNOK: Heidy Gimenez, ; Lester Gimenez, son Living Arrangements: Pt states lives with in 1 story home with 2 steps in and states no concerns at home at this time. Pt states is independent with ADL's. Transportation: Pt states he/ drives and states no transportation concerns at this time. DME/HHC: Pt states cane, walker, scooter, nebulizer, cpap, and home oxygen 2 liters 24/7 thru [employer]. Pt states no need for any further need for DME. Pt states has OP dialysis M,W,F at [facility] at 1200 but states will soon be transitioning to home HD. Pt states no hx of HHC or SNF in the past. Pt states no concerns with going home at time of discharge. Pt is retired. Pt states smokes about 1/2pk/day and drinks 2 beers daily. Pt states no further concerns/needs at this time. CM to follow for any further discharge planning/needs. Advised pt/ to ask for CM if any further questions/concerns/needs arise, voices understanding. Pt Goal: Home Plan[place] RAYMOND SPENCER
--- NOTE | 2019-03-27 13:30 | NURSING ---
pt returned from surgery at this time
--- NOTE | 2019-03-27 13:41 | EKG12_ITS ---
Test Reason : AM EKG Blood Pressure : / mmHG Vent. Rate : 083 BPM Atrial Rate : 083 BPM P-R Int : 210 ms QRS Dur : 096 ms QT Int : 444 ms P-R-T Axes : 000 059 064 degrees QTc Int : 521 ms Sinus rhythm with 1st degree A-V block with Premature atrial complexes Nonspecific ST and T wave abnormality Prolonged QT Abnormal ECG When compared with ECG of 27-MAR-2019 14:44, MANUAL COMPARISON REQUIRED, DATA IS UNCONFIRMED Confirmed by VIKY MONTENEGRO, JOS ([id number]), society editor ANGELA MTZ ([id number]) on 03/29/2019 11:57:24 AM Referred By: Caleb Alaniz Confirmed By:JOS SALMON MD
--- NOTE | 2019-03-27 13:46 | PN_ITS ---
<Haven Carlson - Last Filed: 03/27/19 13:46> Subjective: Patient seen and examined. Denies further black or bloody stools and ileostomy bag. Denies dizziness, lightheadedness. Denies chest pain, shortness of breath. - Physical Exam General: Alert, Oriented x3, Cooperative HEENT: Atraumatic, PERRLA, EOMI, Normocephalic Neck: Supple, No JVD, Negative Carotid Bruits Lungs: Clear to auscultation, Diminished Cardiovascular: Regular rate, Regular Rhythm, Normal S1, Normal S2, No murmurs Abdomen: Bowel Sounds Present, Soft, Non Tender, Non-Distended, - - Ileostomy in place Extremities: No clubbing, No cyanosis, Capillary Refill Less than 3 Seconds, Edema - +2 bilateral lower extremity edema, JOHN hose in place. Skin: No rashes, No breakdown Musculoskeletal: No Tenderness to Palpation of Joints or Extremities Neurological: Cranial nerves II-XII grossly intact, Neuro grossly intact Psych/Mental Status: Normal Affect, Appropriate Vital Signs Temp Pulse Resp BP Pulse Ox 98.4 F 83 16 106/44 L 94 03/27/19 13:08 03/27/19 13:08 03/27/19 13:08 03/27/19 13:08 03/27/19 13:08 Oxygen Flow Rate (L/min) 3 Oxygen Delivery Method Room Air Weight: 152 lb 12.485 oz Body Mass Index (BMI) 25.4 Finger Stick Blood Glucose 200 Intake and Output for Last 24 Hours 03/25/19 03/26/19 03/27/19 23:59 23:59 23:59 Intake Total 586 / 586 1087 / 1087 Output Total 60 / 60 Balance 526 / 526 1087 / 1087 Microbiology Past 72 Hours 03/27/19 05:40 Stool Occult Blood (ESA) - Final Stool Occult Blood Positive Laboratory Tests Past 24 Hrs 03/26/19 03/26/19 03/26/19 16:25 16:40 16:40 WBC 12.5 H RBC 1.64 L Hgb 5.4 L* Hct 17.8 L MCV 108.5 H MCH 32.9 H MCHC 30.3 L RDW 17.5 H RDW Differential 65.7 H Plt Count 279 MPV 9.4 Immature Gran % (Auto) 0.200 Neut % (Auto) 81.4 H Lymph % (Auto) 9.9 L [place] % (Auto) 6.2 Eos % (Auto) 2.0 Baso % (Auto) 0.3 Absolute Neuts (auto) 10.2 H Absolute Lymphs (auto) 1.24 Total Counted Not Reportable Nucleated RBC % Differential Comment Diff Path Review Platelet Estimate ADEQUATE RBC Morphology N CHROM Polychromasia Hypochromasia Anisocytosis 1+ Microcytosis Macrocytosis Absolute Retic Sodium 133 L Potassium 4.2 Chloride 94 L Carbon Dioxide 31.0 Anion Gap 8 BUN 20 H Creatinine 3.23 H Estim Creat Clear Calc 19.30 Est GFR (MDRD) Af Amer 25 L Est GFR (MDRD) Non-Af 21 L BUN/Creatinine Ratio 6.2 L Glucose 96 Calcium 8.1 L Phosphorus Troponin I 0.029 Albumin Blood Type Cancelled Antibody Screen Cancelled Crossmatch See Detail 03/26/19 03/26/19 03/27/19 18:25 22:30 00:45 WBC RBC Hgb Hct MCV MCH MCHC RDW RDW Differential Plt Count MPV Immature Gran % (Auto) Neut % (Auto) Lymph % (Auto) [place] % (Auto) Eos % (Auto) Baso % (Auto) Absolute Neuts (auto) Absolute Lymphs (auto) Total Counted Nucleated RBC % Differential Comment Diff Path Review Platelet Estimate RBC Morphology Polychromasia Hypochromasia Anisocytosis Microcytosis Macrocytosis Absolute Retic Sodium Potassium Chloride Carbon Dioxide Anion Gap BUN Creatinine Estim Creat Clear Calc Est GFR (MDRD) Af Amer Est GFR (MDRD) Non-Af BUN/Creatinine Ratio Glucose Calcium Phosphorus Troponin I 0.037 0.083 H Albumin Blood Type A NEGATIVE Antibody Screen NEGATIVE Crossmatch See Detail 03/27/19 03/27/19 03/27/19 03:46 03:46 06:55 WBC 35.5 H* RBC 2.19 L Hgb 7.2 L Hct 22.8 L MCV 104.1 H MCH 32.9 H MCHC 31.6 L RDW 22.3 H RDW Differential 76.4 H Plt Count 277 MPV 9.5 Immature Gran % (Auto) 0.300 Neut % (Auto) 87.6 H Lymph % (Auto) 4.5 L [place] % (Auto) 7.3 Eos % (Auto) 0.2 Baso % (Auto) 0.1 Absolute Neuts (auto) 31.0 H Absolute Lymphs (auto) 1.59 Total Counted Not Reportable Nucleated RBC % 0.2 Differential Comment SCANNED Diff Path Review May foll Platelet Estimate ADEQUATE RBC Morphology Polychromasia 1+ Hypochromasia 3+ Anisocytosis 2+ Microcytosis RARE Macrocytosis 1+ Absolute Retic 0.06 Sodium 138 Potassium 3.5 Chloride 95 L Carbon Dioxide 31.0 Anion Gap BUN 28 H Creatinine 4.48 H Estim Creat Clear Calc 13.92 Est GFR (MDRD) Af Amer 17 L Est GFR (MDRD) Non-Af 14 L BUN/Creatinine Ratio 6.2 L Glucose 126 H Calcium 7.7 L Phosphorus 2.1 L Troponin I 0.386 H Albumin 2.3 L Blood Type Antibody Screen Crossmatch Medical Necessity - Tobacco Use Smoking Status: Current every day smoker Tobacco Use: Cigarettes Assessment/Plan 1. Acute on chronic anemia/anemia of chronic disease-patient's baseline hemoglobin 8-9. Hemoglobin on admission 5.2. Status post PRBC x2. Patient underwent EGD which showed no evidence of bleeding, no masses or ulcerations. If patient continues to have bleeding, general surgery recommending capsule endoscopy. Continue PPI. Trend CBC. 2. Leukocytosis, fever-unclear etiology. Possibly secondary to blood administration however rule out infectious etiology. Urinalysis pending. Chest x-ray shows bibasilar infiltrates, suspect this is secondary to fluid overload as a result of end-stage renal disease. Check lactic acid. Denies increased shortness of breath or upper respiratory symptoms. Fever currently resolved. Repeat CBC in a.m. 3. Abnormal troponin-suspect demand ischemia as a result of severe anemia. Repeat troponin x1. Initial EKG on admission without acute ischemia. Repeat EKG. Patient denies chest pain. 4. Chronic hypoxic respiratory insufficiency secondary chronic COPD-PRN albuterol aerosol. Continue supplement oxygen to maintain O2 at or above 90%. Wears 2 L nasal cannula at baseline. 5. End-stage renal disease-on hemodialysis Tuesday, , Tuesday. Consult nephrology. 6. History of colonic ischemia-November 2017 patient had a ischemic right colon and proximal transverse colon and underwent ileostomy. 7. Chronic diastolic CHF-no acute exacerbation. Chronic lower extremity swelling, continue JOHN hose. 8. CAD status post CABG X3-continue statin, metoprolol. Aspirin and Plavix on hold. Patient had cardiac catheterization May 2018 which showed triple- vessel CAD of the LM, LCx, PDA. Was recommended to be on aspirin and Plavix indefinitely. 9. PAD-continue statin. Aspirin, Plavix on hold. 10. Hypertension-stable, continue metoprolol regimen. 11. Hyperlipidemia-continue statin regimen. 12. BPH-continue Flomax regimen. DVT prophylaxis-SCDs. This patient was seen by SEUN Obregon under the supervision of Dr. Shane. <Amadou Shane E - Last Filed: 03/27/19 14:13> - Physical Exam Vital Signs Temp Pulse Resp BP Pulse Ox 98.6 F 57 L 16 118/35 L 95 03/27/19 13:30 03/27/19 13:30 03/27/19 13:30 03/27/19 13:30 03/27/19 13:30 Oxygen Flow Rate (L/min) 2 Oxygen Delivery Method Nasal Cannula Weight: 152 lb 12.485 oz Body Mass Index (BMI) 25.4 Finger Stick Blood Glucose 200 Intake and Output for Last 24 Hours 03/25/19 03/26/19 03/27/19 23:59 23:59 23:59 Intake Total 586 / 586 1327 / 1327 Output Total 60 / 60 Balance 526 / 526 1327 / 1327 Microbiology Past 72 Hours 03/27/19 05:40 Stool Occult Blood (ESA) - Final Stool Occult Blood Positive Laboratory Tests Past 24 Hrs 03/26/19 03/26/19 03/26/19 16:25 16:40 16:40 WBC 12.5 H RBC 1.64 L Hgb 5.4 L* Hct 17.8 L MCV 108.5 H MCH 32.9 H MCHC 30.3 L RDW 17.5 H RDW Differential 65.7 H Plt Count 279 MPV 9.4 Immature Gran % (Auto) 0.200 Neut % (Auto) 81.4 H Lymph % (Auto) 9.9 L [place] % (Auto) 6.2 Eos % (Auto) 2.0 Baso % (Auto) 0.3 Absolute Neuts (auto) 10.2 H Absolute Lymphs (auto) 1.24 Total Counted Not Reportable Nucleated RBC % Differential Comment Diff Path Review Platelet Estimate ADEQUATE RBC Morphology N CHROM Polychromasia Hypochromasia Anisocytosis 1+ Microcytosis Macrocytosis Absolute Retic Sodium 133 L Potassium 4.2 Chloride 94 L Carbon Dioxide 31.0 Anion Gap 8 BUN 20 H Creatinine 3.23 H Estim Creat Clear Calc 19.30 Est GFR (MDRD) Af Amer 25 L Est GFR (MDRD) Non-Af 21 L BUN/Creatinine Ratio 6.2 L Glucose 96 Calcium 8.1 L Phosphorus Troponin I 0.029 Albumin Blood Type Cancelled Antibody Screen Cancelled Crossmatch See Detail 03/26/19 03/26/19 03/27/19 18:25 22:30 00:45 WBC RBC Hgb Hct MCV MCH MCHC RDW RDW Differential Plt Count MPV Immature Gran % (Auto) Neut % (Auto) Lymph % (Auto) [place] % (Auto) Eos % (Auto) Baso % (Auto) Absolute Neuts (auto) Absolute Lymphs (auto) Total Counted Nucleated RBC % Differential Comment Diff Path Review Platelet Estimate RBC Morphology Polychromasia Hypochromasia Anisocytosis Microcytosis Macrocytosis Absolute Retic Sodium Potassium Chloride Carbon Dioxide Anion Gap BUN Creatinine Estim Creat Clear Calc Est GFR (MDRD) Af Amer Est GFR (MDRD) Non-Af BUN/Creatinine Ratio Glucose Calcium Phosphorus Troponin I 0.037 0.083 H Albumin Blood Type A NEGATIVE Antibody Screen NEGATIVE Crossmatch See Detail 03/27/19 03/27/19 03/27/19 03:46 03:46 06:55 WBC 35.5 H* RBC 2.19 L Hgb 7.2 L Hct 22.8 L MCV 104.1 H MCH 32.9 H MCHC 31.6 L RDW 22.3 H RDW Differential 76.4 H Plt Count 277 MPV 9.5 Immature Gran % (Auto) 0.300 Neut % (Auto) 87.6 H Lymph % (Auto) 4.5 L [place] % (Auto) 7.3 Eos % (Auto) 0.2 Baso % (Auto) 0.1 Absolute Neuts (auto) 31.0 H Absolute Lymphs (auto) 1.59 Total Counted Not Reportable Nucleated RBC % 0.2 Differential Comment SCANNED Diff Path Review May foll Platelet Estimate ADEQUATE RBC Morphology Polychromasia 1+ Hypochromasia 3+ Anisocytosis 2+ Microcytosis RARE Macrocytosis 1+ Absolute Retic 0.06 Sodium 138 Potassium 3.5 Chloride 95 L Carbon Dioxide 31.0 Anion Gap BUN 28 H Creatinine 4.48 H Estim Creat Clear Calc 13.92 Est GFR (MDRD) Af Amer 17 L Est GFR (MDRD) Non-Af 14 L BUN/Creatinine Ratio 6.2 L Glucose 126 H Calcium 7.7 L Phosphorus 2.1 L Troponin I 0.386 H Albumin 2.3 L Blood Type Antibody Screen Crossmatch Assessment/Plan Hospitalist note: I am seeing this patient in conjunction with Haven Carlson. I independently seen and examined the patient. Progress note above, laboratory data and imaging studies reviewed and I concur with the above treatment plan. Patient seen and examined. He was admitted because of bloody stool and black stool in the colostomy bag in addition to symptoms of shortness of breath and fatigue over the last several days. He denies abdominal pain, nausea or vomiting. He denied chest pain, palpitation, dizziness or lightheadedness. He reported exertional shortness of breath. He has spikes of fever last night. His blood pressure has been borderline, afebrile, pulse ox is maintained on room air. - Physical Exam General: Alert, Oriented x3, Cooperative, No apparent distress. HEENT: Atraumatic, PERRLA, EOMI. Neck: Supple, No JVD, Negative Carotid Bruits, Trachea Midline, Thyroid Normal. Lungs: Diminished breath sounds bilaterally, No rhonchi, No wheeze, No rales. Cardiovascular: Regular rate, Regular Rhythm, Normal S1, Normal S2, PMI Normal. Abdomen: Bowel Sounds Present, Soft, Non Tender, Non-Distended, No Hepato- splenomegaly, colostomy bag in place ileostomy. Extremities: No clubbing, No cyanosis, ++ edema Skin: No rashes, No breakdown Neurological: Cranial nerves are intact, normal power and tone, neuro grossly intact. Assessment and plan: #1 acute on chronic anemia: Working diagnosis was GI bleed. Stool was positive for occult blood. Patient underwent upper EGD that showed no evidence of upper GI bleed, no ulcers or masses. He received a total of 2 units of packed RBCs. Hemoglobin went up to 7.2 g/dL from 5.4 on admission. He is on IV Protonix drip . Aspirin and Plavix held. Plan: Transfuse another unit of packed RBCs, keep holding aspirin and Plavix, pro time and INR, repeat CBC tomorrow morning, continue IV Protonix. #2 leukocytosis/fever: Without source of infection. Patient had significant leukocytosis and he has been spikes of fever. He denies any symptoms. Of infection. Plan: Chest x-ray, urinalysis, blood culture. At this time, no indication for IV antibiotics. #3 abnormal cardiac enzymes: Third troponin was 0.386, the first 2 sets of troponin were negative. EKG revealed sinus rhythm without evidence of acute ischemic changes. Patient denies any chest pain. Plan to do serial cardiac enzymes, repeat EKG tomorrow morning. #4 ESRD on hemodialysis: Continue hemodialysis as per schedule, consult nephrology. #5 other chronic medical problems: Stable, continue current medications as above. This note was generated with [employer] dictation software. It may contain incorrect words, spelling, and punctuation that were not noted in checking the note before signing. Code Visit Inpatient E&M: 05065 Subs Hosp L3
[2019-03-27 15:10] LABS: Lactic Acid 1.4 mmol/L (0.4-2.0)
[2019-03-27] MEDS: Folic Acid 1 MG Tablet 0.5 MG PO (16:33)
[2019-03-27] MEDS: Folic Acid/Vitamin B Comp W-C 1 Capsule 1 CAP PO (16:33)
[2019-03-27] MEDS: Tamsulosin HCl 0.4 MG Capsule 0.8 MG PO (16:33)
[2019-03-27] MEDS: Vitamin B Comp W-C Capsule 1 CAP PO (16:34)
[2019-03-27] MEDS: Omega-3 Acid Ethyl Esters 1 GM Capsule PO (16:35)
[2019-03-27] MEDS: ALPRAZolam 0.5 MG Tablet 1 MG PO (20:49)
[2019-03-27] MEDS: Atorvastatin Calcium 80 MG Tablet PO (21:00)
[2019-03-27] MEDS: Metoprolol(XL)Succ 100 MG Tablet PO (21:00)
[2019-03-28] VITALS (21 sets, daily range): BP systolic 110–131; BP diastolic 40–64; PULSE 71–92; RESP 12–24; TEMP 35.7–37.2; O2SAT 94–100
--- NOTE | 2019-03-28 05:55 | EKG12_ITS ---
Test Reason : RHYTHM Blood Pressure : / mmHG Vent. Rate : 089 BPM Atrial Rate : 089 BPM P-R Int : 208 ms QRS Dur : 092 ms QT Int : 434 ms P-R-T Axes : 000 062 116 degrees QTc Int : 528 ms Normal sinus rhythm Nonspecific ST and T wave abnormality Prolonged QT Abnormal ECG When compared with ECG of 26-MAR-2019 16:32, MANUAL COMPARISON REQUIRED, DATA IS UNCONFIRMED Confirmed by VIKY MONTENEGRO, JOS ([id number]), acquisition editor ANGELA MTZ ([id number]) on 03/29/2019 11:59:22 AM Referred By: Caleb Alaniz Confirmed By:JOS SALMON MD
[2019-03-28 06:45] LABS: Hematocrit 24.6 % (40-54); Hemoglobin 7.8 g/dl (13.0-16.5); Mean Corp Hgb Conc 31.7 g/gl (32-36); Mean Corpuscular Hgb 32.2 pg (27.0-32.0); Mean Corpuscular Volume 101.7 fL (80-94); Mean Platelet Vol. 9.8 fl (6.2-12.0); Platelet Count 234 K/mm3 (150-450); RBC Distribution Width CV 23.1 % (11.6-14.6); RBC Distribution Width SD 73.2 fl (35.1-43.9); Red Blood Count 2.42 M/mm3 (4.6-6.2); White Blood Count 16.7 K/mm3 (4.4-11.0)
[2019-03-28 06:48] LABS: International Normalized Ratio 1.2; Prothrombin Time (Protime)PT. 14.9 SECONDS (11.7-14.9)
[2019-03-28 06:52] LABS: Scan Indicated on CBC? Y/N YES- FLAGS NOTED
[2019-03-28 06:59] LABS: Anion Gap 10 (5-15); BUN 40 mg/dL (7-18); BUN/Creat Ratio 6.6 RATIO (10-20); Calcium,Total 8.5 mg/dL (8.5-10.1); Chloride 93 mmol/L (98-107); Creatinine, Serum 6.07 mg/dL (0.70-1.30); EST Glomerular Filtration Rate 10 mL/min (>60); Est Glom Filt Rate - Afr Amer 12 mL/min (>60); Estimated Creatinine Clearance 10.27 ml/min; Glucose 101 mg/dL (74-106); Potassium 3.5 mmol/L (3.5-5.1); Sodium Level 134 mmol/L (136-145)
[2019-03-28 07:06] LABS: Differential Comment SCANNED
[2019-03-28] MEDS: Ipratropium/Albuterol Sulfate 3 ML AMPUL.NEB INHALATION ×4 (07:11→18:51)
--- NOTE | 2019-03-28 08:58 | PCM.CONS.R ---
Problem List (1) ESRD (end stage renal disease) Status: Chronic Consultation - Renal 03/28/19 PCP/ Referring MD: Requesting physician: ESRD Primary care physician: SEUN Poe Reason for Consultation:: ESRD - History of Present Illness History of Present Illness: The patient is a 68 year old M well known to us. ESRD on HD MWF schedule. last HD tuesday recently had a colostomy due to ischemic colon admitted with bleeding from colon s/p EGD. might need capsule endoscopy - Allergies Allergies: Allergies irbesartan [From Avapro] Allergy (Severe, Verified 03/26/19 16:08) Blisters zolpidem [From Ambien] Adverse Reaction (Severe, Verified 03/26/19 16:08) made me go crazy, memory loss amoxicillin Adverse Reaction (Intermediate, Verified 03/26/19 16:08) Other TOLERATES ZOSYN PASSES BLOOD IN STOOL metronidazole [From Flagyl] Adverse Reaction (Verified 03/26/19 16:08) Other pt states he got palpitations and nose bleed. - Current Medications Current Medications: Current Medications Acetaminophen (Tylenol) 650 mg PO Q6H PRN PRN PRN Reason: Mild pain 1-3/Temp > 100.7 F Last Admin: 03/26/19 23:32 Dose: 650 mg Albuterol/Ipratropium (Duoneb) 3 ml INHALATION Q4HWA.RT [facility] Last Admin: 03/28/19 07:11 Dose: 3 ml Alprazolam (Xanax) 1 mg PO TID PRN PRN Reason: ANXIETY Last Admin: 03/27/19 20:49 Dose: 1 mg Atorvastatin Calcium (Lipitor) 80 mg PO QHS [facility] Last Admin: 03/27/19 21:00 Dose: 80 mg Folic Acid (Folic Acid) 0.5 mg PO DAILY@0800 [facility] Last Admin: 03/27/19 16:33 Dose: 0.5 mg Pantoprazole Sodium 80 mg/ (Sodium Chloride) 100 mls @ 10 mls/hr CONT INF Q10H [facility] Last Admin: 03/28/19 06:24 Dose: 10 mls/hr Metoprolol Succinate (Toprol Xl (Beta Kadi)) 100 mg PO BID [facility] Last Admin: 03/27/19 21:00 Dose: 100 mg Multivit/Ca Carb/B Cmplx/FA/Prenat (Nephrocaps, Renaphro) 1 capsule PO DAILY [facility] Last Admin: 03/27/19 16:33 Dose: 1 capsule Multivitamins (Allbee W/C Caplet, Thera B Comp/C) 1 capsule PO DAILY@0800 [facility] Last Admin: 03/27/19 16:34 Dose: 1 capsule Nicotine (Nicoderm Cq (Pbkc)) 21 mg TRANSDERM. DAILY [facility] Last Admin: 03/27/19 16:35 Dose: 21 mg Nicotine Polacrilex (Rugby Nicotine (Bkc)) 2 mg PO Q2H PRN PRN PRN Reason: Nicotine Craving [id number] Ethyl Esters (Lovaza) 1 gm PO DAILY [facility] Last Admin: 03/27/19 16:35 Dose: 1 gm Ondansetron HCl (Zofran) 4 mg IV Q8H PRN PRN PRN Reason: NAUSEA/VOMITING Sodium Chloride () 5 - 15 ml IV UD PRN PRN Reason: SALINE FLUSH Last Admin: 03/27/19 06:14 Dose: 10 ml Tamsulosin HCl (Flomax) 0.8 mg PO DAILY [facility] Last Admin: 03/27/19 16:33 Dose: 0.8 mg - Past Medical History Past Medical History (Chronic Problems): Chronic Problems (Last Updated 03/27/19 @ 14:05 by Amadou Shane MD) ESRD (end stage renal disease) (Chronic) History of non-ST elevation myocardial infarction (NSTEMI) (Chronic 01/21/11) Stented coronary artery (Chronic) 2003, JASON to circumflex ; 10/13/2009 tsfer from [facility] to [facility], total of 5 bare metal stents to RCA per Dr. Barrientos @ [facility]: 3.5 X 18 Quality Assurance Director, followed distally by 3.0 X12 Quality Assurance Director to distal RCA;3.5 X 15 Quality Assurance Director, followed proximally by 4.0 X 18 Quality Assurance Director to Mid RCA; 4.0 X 18 Quality Assurance Director to Proximal RCA S/P CABG x 3 (Chronic 01/26/11) [facility] per Dr. Osito Hernandez: NICHOLAS to LAD, reverse SVG to OMbranch of CX, reverse SVG to PDA of RCA. PDA endarterectomy. Status post peripheral artery angioplasty with insertion of stent (Chronic ~2010) Right common iliac, [facility] Atherosclerotic heart disease of [place] coronary artery without angina pectoris (Chronic) 2004, JASON to circumflex ; 10/10/2009 tsfer from [facility] to [facility], total of 5 bare metal stents to RCA; CABG X [address] [facility] 01/31/2011 (critical left main and restenosis of RCA stents) Diastolic CHF (Chronic) HLD (hyperlipidemia) (Chronic) HTN (hypertension) (Chronic) PAD (peripheral artery disease) (Chronic) COPD (chronic obstructive pulmonary disease) (Chronic) Tobacco dependence (Chronic) Anemia (Chronic) BPH (benign prostatic hyperplasia) (Chronic) - Past Surgical History Surgical History: coronary bypass surgery, tonsillectomy, - - s/p left AV fistula, s/p Pleurx laparotomy, status post right and transverse colectomy - Social History Smoking Status: Current every day smoker Alcohol: None, Heavy - Drinks 2 beers a day Drugs: None - Family History Maternal Family History: Family History (Last Reviewed 03/02/19 @ 10:29 by Judith Powell) Father CAD (coronary artery disease) Hypertension Kidney disease CVA (cerebral vascular accident) Other Cancer History Items: Heart Disease Paternal Family History: Family History (Last Reviewed 03/02/19 @ 10:29 by Judith Powell) Father CAD (coronary artery disease) Hypertension Kidney disease CVA (cerebral vascular accident) Other Cancer History Items: Heart Disease, Hypertension, Renal Disease Review of Systems Constitutional: Denies: Chills, Fever, Weight Change HEENT: Denies: Head Aches, Sinus Congestion, Sinus Drainage Cardiovascular: Denies: Chest Pain, Palpitations Respiratory: Denies: Cough, Shortness of breath at rest, Sputum production Gastrointestinal: Denies: Abdominal Pain, Nausea, Vomiting Genitourinary: Denies: Dysuria Musculoskeletal: Denies: Joint Pain, Joint Tenderness Skin: Denies: Rash, Wounds Neurological: Denies: Numbness, Tingling, Focal weakness Psychiatric: Denies: Anxiety, Depression, Homicidal Ideations, Suicidal Ideations Hematologic/ Lymphatic: Denies: Easy Bruising, Easy Bleeding - Physical Exam General: Alert, Oriented x3, Cooperative HEENT: Atraumatic, PERRLA, EOMI, Normocephalic Neck: Supple, No JVD, Negative Carotid Bruits Lungs: Clear to auscultation, Normal air movement Cardiovascular: Regular rate, No murmurs Abdomen: Bowel Sounds Present, Soft, Non Tender Extremities: No edema, Capillary Refill Less than 3 Seconds Skin: No rashes, No breakdown Musculoskeletal: No Tenderness to Palpation of Joints or Extremities Neurological: Cranial nerves II-XII grossly intact Psych/Mental Status: Normal Affect, Appropriate Vital Signs Temp Pulse Resp BP Pulse Ox 97.7 F L 74 16 129/64 H 94 03/28/19 08:57 03/28/19 08:57 03/28/19 08:57 03/28/19 08:57 03/28/19 08:57 Oxygen Flow Rate (L/min) 2 Oxygen Delivery Method Nasal Cannula Weight: 72.9 kg Body Mass Index (BMI) 25.4 Finger Stick Blood Glucose 200 Intake and Output for Last 24 Hours 03/26/19 03/27/19 03/28/19 23:59 23:59 23:59 Intake Total 586 / 586 2311 / 2311 214 / 214 Output Total 60 / 60 Balance 526 / 526 2311 / 2311 214 / 214 Microbiology Past 72 Hours 03/27/19 05:40 Stool Occult Blood (ESA) - Final Stool Occult Blood Positive Laboratory Tests Past 24 Hrs 03/26/19 03/26/19 03/27/19 18:25 18:25 14:15 WBC RBC Hgb Hct MCV MCH MCHC RDW RDW Differential Plt Count MPV Differential Comment PT INR Sodium Potassium Chloride Carbon Dioxide Anion Gap BUN Creatinine Estim Creat Clear Calc Est GFR (MDRD) Af Amer Est GFR (MDRD) Non-Af BUN/Creatinine Ratio Glucose Lactic Acid 1.4 Calcium Troponin I Crossmatch See Detail See Detail 03/27/19 03/28/19 03/28/19 14:15 06:20 06:20 WBC 16.7 H RBC 2.42 L Hgb 7.8 L Hct 24.6 L MCV 101.7 H MCH 32.2 H MCHC 31.7 L RDW 23.1 H RDW Differential 73.2 H Plt Count 234 MPV 9.8 Differential Comment SCANNED PT INR Sodium 134 L Potassium 3.5 Chloride 93 L Carbon Dioxide 31.0 Anion Gap 10 BUN 40 H Creatinine 6.07 H Estim Creat Clear Calc 10.27 Est GFR (MDRD) Af Amer 12 L Est GFR (MDRD) Non-Af 10 L BUN/Creatinine Ratio 6.6 L Glucose 101 Lactic Acid Calcium 8.5 Troponin I 0.728 H* Crossmatch 03/28/19 06:20 WBC RBC Hgb Hct MCV MCH MCHC RDW RDW Differential Plt Count MPV Differential Comment PT 14.9 INR 1.2 Sodium Potassium Chloride Carbon Dioxide Anion Gap BUN Creatinine Estim Creat Clear Calc Est GFR (MDRD) Af Amer Est GFR (MDRD) Non-Af BUN/Creatinine Ratio Glucose Lactic Acid Calcium Troponin I Crossmatch Assessment/Plan ESRD. HD today. seen on HD. see orders/flowsheets Anemia. due to GI bleed. PRBC received fluid overload. UF 3-4 L today
[2019-03-28] MEDS: Tamsulosin HCl 0.4 MG Capsule 0.8 MG PO (08:59)
[2019-03-28] MEDS: Folic Acid/Vitamin B Comp W-C 1 Capsule 1 CAP PO (09:00)
[2019-03-28] MEDS: Omega-3 Acid Ethyl Esters 1 GM Capsule PO (09:00)
[2019-03-28] MEDS: Folic Acid 1 MG Tablet 0.5 MG PO (09:00)
[2019-03-28] MEDS: Vitamin B Comp W-C Capsule 1 CAP PO (09:01)
[2019-03-28 09:58] LABS: Pathologist Review Reviewed
--- NOTE | 2019-03-28 10:57 | CASEMGMT ---
SW completed Healthcare POA with patient. Copies made, originals and copies given to patient. A copy was also placed in patient's chart. Elaine BARTH MSW
[2019-03-28] MEDS: Acetaminophen 325 MG Tablet 650 MG PO ×2 (12:15→21:15)
--- NOTE | 2019-03-28 13:02 | DIALYSIS ---
HD discontinued a few minutes early d/t leg pain. Ran [address] Alaniz is aware. Ran on 3k bath. UF of 3000ml. Used left arm fistula. [place] removed post tx. Pressure applied x 10 minutes. Fresh gauze and tape applied. Report was given to RAYMOND Garcia.
--- NOTE | 2019-03-28 13:46 | PCM.PROGNOTE ---
<Haven Carlson - Last Filed: 03/28/19 13:56> Subjective: Patient seen and examined. Feels improved. Wishes to return home. Denies chest pain, shortness of breath. Generalized weakness improved. - Physical Exam General: Alert, Oriented x3, Cooperative HEENT: Atraumatic, PERRLA, EOMI, Normocephalic Neck: Supple, No JVD, Negative Carotid Bruits Lungs: Clear to auscultation, Diminished Cardiovascular: Regular rate, Regular Rhythm, Normal S1, Normal S2, No murmurs Abdomen: Bowel Sounds Present, Soft, Non Tender, Non-Distended, - - Ileostomy in place Extremities: No clubbing, No cyanosis, Capillary Refill Less than 3 Seconds, Edema - +1-2 bilateral lower extremity edema, JOHN hose in place. Skin: No rashes, No breakdown Musculoskeletal: No Tenderness to Palpation of Joints or Extremities Neurological: Cranial nerves II-XII grossly intact, Neuro grossly intact Psych/Mental Status: Normal Affect, Appropriate Vital Signs Temp Pulse Resp BP Pulse Ox 98.1 F 92 18 110/53 L 98 03/28/19 13:00 03/28/19 13:00 03/28/19 13:00 03/28/19 13:00 03/28/19 13:00 Oxygen Flow Rate (L/min) 2 Oxygen Delivery Method Nasal Cannula Weight: 160 lb 11.472 oz Body Mass Index (BMI) 25.4 Finger Stick Blood Glucose 200 Intake and Output for Last 24 Hours 03/26/19 03/27/19 03/28/19 23:59 23:59 23:59 Intake Total 586 / 586 1 / 2311 214 / 214 Output Total 60 / 60 0 / 0 Balance 526 / 526 2311 / 2311 214 / 214 Microbiology Past 72 Hours 03/27/19 05:40 Stool Occult Blood (ESA) - Final Stool Occult Blood Positive Laboratory Tests Past 24 Hrs 03/26/19 03/26/19 03/26/19 18:25 18:25 18:25 WBC RBC Hgb Hct MCV MCH MCHC RDW RDW Differential Plt Count MPV Differential Comment Diff Path Review PT INR Sodium Potassium Chloride Carbon Dioxide Anion Gap BUN Creatinine Estim Creat Clear Calc Est GFR (MDRD) Af Amer Est GFR (MDRD) Non-Af BUN/Creatinine Ratio Glucose Lactic Acid Calcium Troponin I Crossmatch See Detail See Detail See Detail 03/27/19 03/27/19 03/27/19 06:55 14:15 14:15 WBC RBC Hgb Hct MCV MCH MCHC RDW RDW Differential Plt Count MPV Differential Comment Diff Path Review Reviewed PT INR Sodium Potassium Chloride Carbon Dioxide Anion Gap BUN Creatinine Estim Creat Clear Calc Est GFR (MDRD) Af Amer Est GFR (MDRD) Non-Af BUN/Creatinine Ratio Glucose Lactic Acid 1.4 Calcium Troponin I 0.728 H* Crossmatch 03/28/19 03/28/19 03/28/19 06:20 06:20 06:20 WBC 16.7 H RBC 2.42 L Hgb 7.8 L Hct 24.6 L MCV 101.7 H MCH 32.2 H MCHC 31.7 L RDW 23.1 H RDW Differential 73.2 H Plt Count 234 MPV 9.8 Differential Comment SCANNED Diff Path Review PT 14.9 INR 1.2 Sodium 134 L Potassium 3.5 Chloride 93 L Carbon Dioxide 31.0 Anion Gap 10 BUN 40 H Creatinine 6.07 H Estim Creat Clear Calc 10.27 Est GFR (MDRD) Af Amer 12 L Est GFR (MDRD) Non-Af 10 L BUN/Creatinine Ratio 6.6 L Glucose 101 Lactic Acid Calcium 8.5 Troponin I Crossmatch Medical Necessity - Tobacco Use Smoking Status: Current every day smoker Tobacco Use: Cigarettes Assessment/Plan 1. Acute on chronic anemia/anemia of chronic disease-patient's baseline hemoglobin 8-9. Hemoglobin on admission 5.2. Status post PRBC x3. Patient underwent EGD which showed no evidence of bleeding, no masses or ulcerations. Continue Protonix 40 mg twice daily. If patient continues to have bleeding, general surgery recommending capsule endoscopy. No further black stools per patient. Trend CBC. 2. Leukocytosis, fever-secondary to blood administration. Urinalysis ordered, pending. Chest x-ray shows bibasilar infiltrates, suspect this is secondary to fluid overload as a result of end-stage renal disease. Lactic acid within normal limits. Fever resolved. WBC improved to 16.7 from 35.5 yesterday. 3. Abnormal troponin-suspect demand ischemia as a result of severe anemia. EKG without acute ischemia x2. Patient denies chest pain. 4. Chronic hypoxic respiratory insufficiency secondary chronic COPD-PRN albuterol aerosol. Continue supplement oxygen to maintain O2 at or above 90%. Wears 2 L nasal cannula at baseline. 5. End-stage renal disease-on hemodialysis Tuesday, Tuesday, Tuesday. Nephrology consulted. Patient underwent dialysis today. 6. History of colonic ischemia-November 2017 patient had a ischemic right colon and proximal transverse colon and underwent ileostomy. 7. Chronic diastolic CHF-no acute exacerbation. Chronic lower extremity swelling, continue JOHN hose. 8. CAD status post CABG X3-continue statin, metoprolol. Aspirin and Plavix on hold. Patient had cardiac catheterization May 2018 which showed triple-vessel CAD of the LM, LCx, PDA. Was recommended to be on aspirin and Plavix indefinitely. 9. PAD-continue statin. Aspirin, Plavix on hold. 10. Hypertension-stable, continue metoprolol regimen. 11. Hyperlipidemia-continue statin regimen. 12. BPH-continue Flomax regimen. DVT prophylaxis-SCDs. Discharge planning: Anticipate discharge home tomorrow if hemoglobin remains stable. Given EGD with no evidence of bleeding, recommend resuming aspirin and Plavix tomorrow along with twice daily PPI. This patient was seen by SEUN Obregon under the supervision of Dr. Shane. <Amadou Shane - Last Filed: 03/28/19 14:05> - Physical Exam Vital Signs Temp Pulse Resp BP Pulse Ox 98.0 F 88 16 119/56 L 98 03/28/19 14:00 03/28/19 14:00 03/28/19 14:00 03/28/19 14:00 03/28/19 14:00 Oxygen Flow Rate (L/min) 2 Oxygen Delivery Method Nasal Cannula Weight: 160 lb 11.472 oz Body Mass Index (BMI) 25.4 Finger Stick Blood Glucose 200 Intake and Output for Last 24 Hours 03/26/19 03/27/19 03/28/19 23:59 23:59 23:59 Intake Total 586 / 586 2310 / 2310 214 / 214 Output Total 60 / 60 0 / 0 Balance 526 / 526 2310 / 2310 214 / 214 Microbiology Past 72 Hours 03/27/19 05:40 Stool Occult Blood (ESA) - Final Stool Occult Blood Positive Laboratory Tests Past 24 Hrs 03/26/19 03/26/19 03/26/19 18:25 18:25 18:25 WBC RBC Hgb Hct MCV MCH MCHC RDW RDW Differential Plt Count MPV Differential Comment Diff Path Review PT INR Sodium Potassium Chloride Carbon Dioxide Anion Gap BUN Creatinine Estim Creat Clear Calc Est GFR (MDRD) Af Amer Est GFR (MDRD) Non-Af BUN/Creatinine Ratio Glucose Lactic Acid Calcium Troponin I Crossmatch See Detail See Detail See Detail 03/27/19 03/27/19 03/27/19 06:55 14:15 14:15 WBC RBC Hgb Hct MCV MCH MCHC RDW RDW Differential Plt Count MPV Differential Comment Diff Path Review Reviewed PT INR Sodium Potassium Chloride Carbon Dioxide Anion Gap BUN Creatinine Estim Creat Clear Calc Est GFR (MDRD) Af Amer Est GFR (MDRD) Non-Af BUN/Creatinine Ratio Glucose Lactic Acid 1.4 Calcium Troponin I 0.728 H* Crossmatch 03/28/19 03/28/19 03/28/19 06:20 06:20 06:20 WBC 16.7 H RBC 2.42 L Hgb 7.8 L Hct 24.6 L MCV 101.7 H MCH 32.2 H MCHC 31.7 L RDW 23.1 H RDW Differential 73.2 H Plt Count 234 MPV 9.8 Differential Comment SCANNED Diff Path Review PT 14.9 INR 1.2 Sodium 134 L Potassium 3.5 Chloride 93 L Carbon Dioxide 31.0 Anion Gap 10 BUN 40 H Creatinine 6.07 H Estim Creat Clear Calc 10.27 Est GFR (MDRD) Af Amer 12 L Est GFR (MDRD) Non-Af 10 L BUN/Creatinine Ratio 6.6 L Glucose 101 Lactic Acid Calcium 8.5 Troponin I Crossmatch Assessment/Plan Hospitalist note: I am seeing this patient in conjunction with Haven Carlson. I independently seen and examined the patient. Progress note above, laboratory data reviewed and I concur with the above treatment plan. Patient seen and examined. He is feeling better. No specific complaints. Denied abdominal pain, nausea vomiting. Denies chest pain or shortness of breath. His vital signs are stable. - Physical Exam General: Alert, Oriented x3, Cooperative, No apparent distress. HEENT: Atraumatic, PERRLA, EOMI. Neck: Supple, No JVD, Negative Carotid Bruits, Trachea Midline, Thyroid Normal. Lungs: Diminished breath sounds bilaterally, No rhonchi, No wheeze, No rales. Cardiovascular: Regular rate, Regular Rhythm, Normal S1, Normal S2, PMI Normal. Abdomen: Bowel Sounds Present, Soft, Non Tender, Non-Distended, No Hepato-splenomegaly, colostomy bag in place ileostomy. Extremities: No clubbing, No cyanosis, ++ edema Skin: No rashes, No breakdown Neurological: Cranial nerves are intact, normal power and tone, neuro grossly intact. Assessment and plan: #1 acute on chronic anemia: Status post upper EGD that revealed no evidence of upper GI bleed, ulcers, masses. Stool was positive for occult blood. He received a total of 3 units of packed RBCs. Today's hemoglobin is 7.8 g/dL. Plan: Transfuse another unit of packed RBCs today, keep holding aspirin and Plavix, DC IV Protonix drip, start oral Protonix, repeat CBC tomorrow morning. #2 leukocytosis/fever: Without source of infection. White blood cell count significantly improved, down to 16,000. It was 35,000 yesterday. He has no more spikes of fever. Chest x-ray reviewed, no acute infiltrate although the official report mentioned bilateral infiltrate, at this time I doubt pneumonia. Blood culture sent, pending. No indication to start IV antibiotics, will monitor. #3 abnormal cardiac enzymes: Troponin went up to 0.728. It is attributed to demand ischemia secondary to severe anemia. Patient remained without chest pain. EKG revealed sinus rhythm without evidence of acute ischemic changes. Case discussed with cardiology and recommended to treat underlying anemia and no indication for any further cardiac work-up at this time. #4 ESRD on hemodialysis: Continue hemodialysis as per schedule, nephrology on the case.. #5 other chronic medical problems: Stable, continue current medications as above. This note was generated with [employer] software. It may contain incorrect words, spelling, and punctuation that were not noted in checking the note before signing. Code Visit Inpatient E&M: 22020 Subs Hosp L2
[2019-03-28] MEDS: Metoprolol(XL)Succ 100 MG Tablet PO ×2 (14:01→21:15)
[2019-03-28] MEDS: DiphenhydrAMINE 25 MG Capsule PO (15:50)
[2019-03-28] MEDS: 0.9% NaCl Peripheral Flush Adult/Peds IV (15:51)
[2019-03-28] MEDS: ALPRAZolam 0.5 MG Tablet 1 MG PO (21:15)
[2019-03-28] MEDS: Atorvastatin Calcium 80 MG Tablet PO (21:15)
[2019-03-28] MEDS: Pantoprazole Sodium 40 MG Tablet PO (21:15)
[2019-03-28 22:49] LABS: Bacteria 0 SEEN /hpf (None Seen); Mucous, Urine 0 SEEN /hpf (<or=2+); Red Blood Cells-Urine 0 SEEN /hpf (0-5); Squamous Epithelial Cells - UA 0 SEEN /hpf (0-5)
[2019-03-28 22:50] LABS: Color, Urine Yellow (Yellow); Glucose, Dipstick Normal (Normal); Ketone-Dipstick 5 mg/dl (Negative); Leukocyte Esterase-Dipstick 500 /ul (Negative); Nitrite-Dipstick Negative (Negative); Occult Blood-Urine 150 /ul (Negative); Protein-Dipstick 100 mg/dl (Negative); Specific Gravity, Urine 1.005 (1.002-1.030); Urine Clarity Cloudy (Clear); Urine Urobilinogen 1 mg/dl (Normal)
[2019-03-28 22:59] LABS: Urine Bilirubin Dipstick 1 mg/dL (Negative)
[2019-03-28 23:00] LABS: White Blood Cells >100 SEEN /hpf (0-5)
[2019-03-29] VITALS (8 sets, daily range): BP systolic 120–125; BP diastolic 47–57; PULSE 72–83; RESP 14–18; TEMP 36.7–36.8; O2SAT 93–98
[2019-03-29 01:14] LABS: Hematocrit 28.1 % (40-54); Hemoglobin 8.9 g/dl (13.0-16.5); Mean Corp Hgb Conc 31.7 g/gl (32-36); Mean Corpuscular Volume 101.1 fL (80-94); Mean Platelet Vol. 9.7 fl (6.2-12.0); Platelet Count 252 K/mm3 (150-450); RBC Distribution Width CV 23.2 % (11.6-14.6); RBC Distribution Width SD 73.7 fl (35.1-43.9); Red Blood Count 2.78 M/mm3 (4.6-6.2); White Blood Count 13.2 K/mm3 (4.4-11.0)
[2019-03-29 01:16] LABS: Scan Indicated on CBC? Y/N YES- FLAGS NOTED
[2019-03-29 01:30] LABS: Anion Gap 5 (5-15); BUN 18 mg/dL (7-18); BUN/Creat Ratio 4.6 RATIO (10-20); Chloride 99 mmol/L (98-107); Creatinine, Serum 3.88 mg/dL (0.70-1.30); EST Glomerular Filtration Rate 17 mL/min (>60); Est Glom Filt Rate - Afr Amer 20 mL/min (>60); Estimated Creatinine Clearance 16.07 ml/min; Glucose 127 mg/dL (74-106); Magnesium 1.7 mg/dL (1.6-2.6); Potassium 3.8 mmol/L (3.5-5.1); Sodium Level 135 mmol/L (136-145)
[2019-03-29 01:31] LABS: Differential Comment SCANNED
[2019-03-29] MEDS: Loratadine 10 MG Tablet PO (03:02)
[2019-03-29] MEDS: hydrOXYzine 10 MG Tablet PO ×2 (03:02→11:37)
[2019-03-29] MEDS: Acetaminophen 325 MG Tablet 650 MG PO (06:24)
[2019-03-29] MEDS: Ipratropium/Albuterol Sulfate 3 ML AMPUL.NEB INHALATION ×2 (07:37→10:45)
[2019-03-29] MEDS: Tamsulosin HCl 0.4 MG Capsule 0.8 MG PO (08:57)
[2019-03-29] MEDS: Omega-3 Acid Ethyl Esters 1 GM Capsule PO (08:57)
[2019-03-29] MEDS: Vitamin B Comp W-C Capsule 1 CAP PO (08:57)
[2019-03-29] MEDS: Folic Acid 1 MG Tablet 0.5 MG PO (08:57)
[2019-03-29] MEDS: Pantoprazole Sodium 40 MG Tablet PO (08:58)
[2019-03-29] MEDS: Metoprolol(XL)Succ 100 MG Tablet PO (08:58)
[2019-03-29] MEDS: Folic Acid/Vitamin B Comp W-C 1 Capsule 1 CAP PO (08:58)
--- NOTE | 2019-03-29 10:35 | PN.RENAL_ITS ---
Subjective: no new bleeding - Physical Exam General: Alert, Oriented x3, Cooperative HEENT: Atraumatic, PERRLA, EOMI, Normocephalic Neck: Supple, No JVD, Negative Carotid Bruits Lungs: Clear to auscultation, Normal air movement Cardiovascular: Regular rate, No murmurs Abdomen: Bowel Sounds Present, Soft, Non Tender Extremities: No edema, Capillary Refill Less than 3 Seconds Skin: No rashes, No breakdown Musculoskeletal: No Tenderness to Palpation of Joints or Extremities Neurological: Cranial nerves II-XII grossly intact Psych/Mental Status: Normal Affect, Appropriate Vital Signs Temp Pulse Resp BP Pulse Ox 98.0 F 78 14 120/57 L 96 03/29/19 08:50 03/29/19 08:58 03/29/19 08:50 03/29/19 08:50 03/29/19 08:50 Oxygen Flow Rate (L/min) 2 Oxygen Delivery Method Nasal Cannula Weight: 69.8 kg Body Mass Index (BMI) 25.4 Finger Stick Blood Glucose 200 Intake and Output for Last 24 Hours 03/27/19 03/28/19 03/29/19 23:59 23:59 23:59 Intake Total 2311 / 2311 1113 / 1113 380 / 380 Output Total 3000 / 3000 100 / 100 Balance 2311 / 2311 -1887 / -1887 280 / 280 Microbiology Past 72 Hours 03/27/19 05:40 Stool Occult Blood (ESA) - Final Stool Occult Blood Positive Laboratory Tests Past 24 Hrs 03/26/19 03/26/19 03/28/19 18:25 18:25 19:50 WBC RBC Hgb Hct MCV MCH MCHC RDW RDW Differential Plt Count MPV Differential Comment Sodium Potassium Chloride Carbon Dioxide Anion Gap BUN Creatinine Estim Creat Clear Calc Est GFR (MDRD) Af Amer Est GFR (MDRD) Non-Af BUN/Creatinine Ratio Glucose Calcium Magnesium Urine Color Yellow Urine Clarity Cloudy Urine pH 7.0 Ur Specific Henderson 1.005 Urine Protein 100 H Urine Glucose (UA) Normal Urine Ketones 5 H Urine Occult Blood 150 H Urine Nitrite Negative Urine Bilirubin 1 H Urine Urobilinogen 1 H Ur Leukocyte Esterase 500 H Urine RBC 0 SEEN Urine WBC >100 SEEN Ur Squamous Epith Cells 0 SEEN Urine Bacteria 0 SEEN Urine Mucus 0 SEEN Crossmatch See Detail See Detail 03/29/19 03/29/19 03/29/19 00:55 00:55 00:55 WBC 13.2 H RBC 2.78 L Hgb 8.9 L Hct 28.1 L MCV 101.1 H MCH 32.0 MCHC 31.7 L RDW 23.2 H RDW Differential 73.7 H Plt Count 252 MPV 9.7 Differential Comment SCANNED Sodium Cancelled 135 L Potassium Cancelled 3.8 Chloride Cancelled 99 Carbon Dioxide Cancelled 31.0 Anion Gap Cancelled 5 BUN Cancelled 18 Creatinine Cancelled 3.88 H Estim Creat Clear Calc Cancelled 16.07 Est GFR (MDRD) Af Amer Cancelled 20 L Est GFR (MDRD) Non-Af Cancelled 17 L BUN/Creatinine Ratio Cancelled 4.6 L Glucose Cancelled 127 H Calcium Cancelled 8.0 L Magnesium 1.7 Urine Color Urine Clarity Urine pH Ur Specific Henderson Urine Protein Urine Glucose (UA) Urine Ketones Urine Occult Blood Urine Nitrite Urine Bilirubin Urine Urobilinogen Ur Leukocyte Esterase Urine RBC Urine WBC Ur Squamous Epith Cells Urine Bacteria Urine Mucus Crossmatch Medical Necessity - Tobacco Use Smoking Status: Current every day smoker Tobacco Use: Cigarettes Assessment/Plan ESRD Anemia due to ESRD and GI bleed s/p PRBC Dyspnea. better dc today dialysis tomorrow as outpatient
--- NOTE | 2019-03-29 10:38 | DCINST_ITS ---
You will use the following diet at home:: Cardiac Your food should be the consistency of: Regular Your liquids should be the consistency of: Regular/Thin Discharge Activity: Return to Normal Activity Allergies/Adverse Reactions: Allergies irbesartan [From Avapro] Allergy (Severe, Verified 03/26/19 16:08) Blisters zolpidem [From Ambien] Adverse Reaction (Severe, Verified 03/26/19 16:08) made me go crazy, memory loss amoxicillin Adverse Reaction (Intermediate, Verified 03/26/19 16:08) Other TOLERATES ZOSYN PASSES BLOOD IN STOOL metronidazole [From Flagyl] Adverse Reaction (Verified 03/26/19 16:08) Other pt states he got palpitations and nose bleed. Medications to take at Discharge Albuterol Sulfate 2.5 mg IH Q4H PRN 11/13/18 Alprazolam [Xanax] 0.5 mg PO BID 11/13/18 Aspirin E.C. [Ecotrin] 81 mg PO DAILY@0800 11/13/18 Tamsulosin HCl [Flomax] 0.8 mg PO DAILY 11/13/18 Metoprolol(XL)Succ [Toprol Xl (Beta Kadi)] 100 mg PO BID 12/06/18 ascorbate calcium (Vitamin C) 500 mg tablet 500 mg PO DAILY 03/02/19 clopidogrel 75 mg tablet 75 mg PO DAILY 03/02/19 omega-3 fatty acids 1,000 mg capsule 1,000 mg PO BID 03/02/19 vitamin B complex-vitamin C-folic acid 0.8 mg tablet 1 tab PO DAILY 03/02/19 Cholecalciferol (VIT D3) [Vitamin D3] 1,000 unit PO DAILY 03/26/19 Cyanocobalamin (Vitamin B-12) [Vitamin B12] 2,500 mcg PO DAILY 03/26/19 Folic Acid 0.4 mg PO DAILY@0800 03/26/19 Atorvastatin Calcium [Lipitor] 80 mg PO QHS #30 tablet 03/29/19 Folic Acid/Vitamin B Comp W-C [Nephrocaps, Renaphro] 1 capsule PO DAILY #30 capsule 03/29/19 Pantoprazole Sodium [Protonix] 40 mg PO BID #60 tablet 03/29/19 hydrOXYzine tablet [Atarax tablet] 10 mg PO TID PRN PRN #21 tab 03/29/19 The following prescriptions were given: Atorvastatin Calcium [Lipitor] 80 mg PO QHS #30 tablet Folic Acid/Vitamin B Comp W-C [Nephrocaps, Renaphro] 1 capsule PO DAILY #30 capsule hydrOXYzine tablet [Atarax tablet] 10 mg PO TID PRN PRN #21 tab PRN Reason: Itching Pantoprazole Sodium [Protonix] 40 mg PO BID #60 tablet Primary Care Physician: Tania Berger NP-C [Primary Care Provider] - Please follow up with your Primary Care Physician in: 1-2 weeks Test Results: Test results from this visit will be discussed in further detail at your follow- up appointment, if applicable. Please Follow Up With: Caleb Alaniz MD - Dialysis When: as directed Please Follow Up With: Armen Henderson MD When: 2 weeks Please Follow Up With: Chepe Barrientos MD When: as directed Proposed Discharge Date: 03/29/19
--- NOTE | 2019-03-29 11:23 | CASEMGMT ---
This RN CM to room to discuss discharge plan with pt/ at this time. Pt/ decline HHC and OP therapy at this time. Pt/ voice no further questions/concerns/needs at this time. SStdereje RN CM
--- NOTE | 2019-03-29 14:53 | PCM.DC.SUM ---
<Itz Bennett - Last Filed: 03/29/19 14:53> Discharge Date and Diagnosis Date of Admission: 03/26/19 Date of Discharge: 03/29/19 - Primary Discharge Diagnosis Acute on chronic anemia 2/2 presumed GI bleed Leukocytosis 2/2 blood product administration Abnormal trop 2/2 demand ischemi from severe anemia Chronic hypoxic resp failure 2/2 COPD ESRD Hx colonic ischemia Chronic diastolic CHF CAD prior CABGx3 PAD HTN HLD BPH - Secondary Discharge Diagnosis Chronic Problems (Last Updated 03/27/19 @ 14:05 by Amadou Shane MD) ESRD (end stage renal disease) (Chronic) History of non-ST elevation myocardial infarction (NSTEMI) (Chronic 01/21/11) Stented coronary artery (Chronic) 2003, JASON to circumflex ; 10/13/2009 tsfer from [facility] to [facility], total of 5 bare metal stents to RCA per Dr. 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 Osito Hernandez: NICHOLAS to LAD, reverse SVG to OMbranch of CX, reverse SVG to PDA of RCA. PDA endarterectomy. Status post peripheral artery angioplasty with insertion of stent (Chronic ~2010) Right common iliac, [facility] Atherosclerotic heart disease of [place] coronary artery without angina pectoris (Chronic) 2003, JASON to circumflex ; 10/10/2009 tsfer from [facility] to [facility], total of 5 bare metal stents to RCA; CABG X 3 vessels @ [facility] 01/31/2011 (critical left main and restenosis of RCA stents) Diastolic CHF (Chronic) HLD (hyperlipidemia) (Chronic) HTN (hypertension) (Chronic) PAD (peripheral artery disease) (Chronic) COPD (chronic obstructive pulmonary disease) (Chronic) Tobacco dependence (Chronic) Anemia (Chronic) BPH (benign prostatic hyperplasia) (Chronic) Hospital Course and Treatment Imaging Results: RAD/Chest 1 View (Portable) IMPRESSION: Degenerative changes, as described above. No demonstrated acute cardiopulmonary process. RAD/Chest 1 View (Portable) IMPRESSION: Progressive bibasilar infiltrates. Blunting of both costophrenic angles. Consults: Santiago - Gen Surg [place] - Nephro Operations: None Procedures: Colonoscopy Summary of Care Provided: Hospital course: The patient is a 68 year old M with past medical history as above who presented to the emergency room with hemoglobin of 5.4 found on routine lab work. He was down from 8.3 a week prior. He did complain of fatigue, weakness, shortness of breath. He has a history of end ileostomy and did have melena and bloody stools in his ileostomy bag. He is being followed as an outpatient by . His troponin was also elevated. He was admitted for possible GI bleed. He underwent an EGD which was essentially unremarkable. He received a total of 3 units of packed red blood cells. He had leukocytosis in response to the back red blood cells. He had no sign of an acute infectious process. His case was discussed with cardiology as his troponin went up to 0.728, they felt that this was demand ischemia secondary to severe anemia and did not need further work-up. Initially the patient had his aspirin and Plavix held. He was placed on a PPI twice daily. As he has significant underlying cardiac disease it is recommended he continue the aspirin and Plavix at discharge along with the PPI twice daily. If he has further bleeding he will need to stop these and possibly have a capsule endoscopy. At this time he is asymptomatic, he is discharged home in stable condition. Please follow-up with general surgery as directed, cardiology as directed, follow-up with your PCP in 1 to 2 weeks. Follow-up with dialysis on her previous schedule. This patient was seen by Itz Bennett PA-C under the supervision of Doctor Shane. [] - Physical Exam General: Alert, Oriented x3, Cooperative HEENT: Atraumatic, PERRLA, EOMI, Normocephalic Neck: Supple, No JVD, Negative Carotid Bruits Lungs: Clear to auscultation, Normal air movement Cardiovascular: Regular rate, No murmurs Abdomen: Bowel Sounds Present, Soft, Non Tender Extremities: No edema, Capillary Refill Less than 3 Seconds Skin: No rashes, No breakdown Musculoskeletal: No Tenderness to Palpation of Joints or Extremities Neurological: Cranial nerves II-XII grossly intact Psych/Mental Status: Normal Affect, Appropriate Vital Signs Temp Pulse Resp BP Pulse Ox 98.0 F 82 18 120/57 L 96 03/29/19 08:50 03/29/19 10:46 03/29/19 10:46 03/29/19 08:50 03/29/19 08:50 Oxygen Flow Rate (L/min) 2 Oxygen Delivery Method Nasal Cannula Weight: 153 lb 14.122 oz Body Mass Index (BMI) 25.4 Finger Stick Blood Glucose 200 Intake and Output for Last 24 Hours 03/27/19 03/28/19 03/29/19 23:59 23:59 23:59 Intake Total 2311 / 2311 1113 / 1113 380 / 380 Output Total 3000 / 3000 100 / 100 Balance 2311 / 2311 -1887 / -1887 280 / 280 Microbiology Past 72 Hours 03/27/19 05:40 Stool Occult Blood (ESA) - Final Stool Occult Blood Positive Laboratory Tests Past 24 Hrs 03/26/19 03/28/19 03/29/19 18:25 19:50 00:55 WBC 13.2 H RBC 2.78 L Hgb 8.9 L Hct 28.1 L MCV 101.1 H MCH 32.0 MCHC 31.7 L RDW 23.2 H RDW Differential 73.7 H Plt Count 252 MPV 9.7 Differential Comment SCANNED Sodium Potassium Chloride Carbon Dioxide Anion Gap BUN Creatinine Estim Creat Clear Calc Est GFR (MDRD) Af Amer Est GFR (MDRD) Non-Af BUN/Creatinine Ratio Glucose Calcium Magnesium Urine Color Yellow Urine Clarity Cloudy Urine pH 7.0 Ur Specific [place] 1.005 Urine Protein 100 H Urine Glucose (UA) Normal Urine Ketones 5 H Urine Occult Blood 150 H Urine Nitrite Negative Urine Bilirubin 1 H Urine Urobilinogen 1 H Ur Leukocyte Esterase 500 H Urine RBC 0 SEEN Urine WBC >100 SEEN Ur Squamous Epith Cells 0 SEEN Urine Bacteria 0 SEEN Urine Mucus 0 SEEN Crossmatch See Detail 03/29/19 03/29/19 00:55 00:55 WBC RBC Hgb Hct MCV MCH MCHC RDW RDW Differential Plt Count MPV Differential Comment Sodium Cancelled 135 L Potassium Cancelled 3.8 Chloride Cancelled 99 Carbon Dioxide Cancelled 31.0 Anion Gap Cancelled 5 BUN Cancelled 18 Creatinine Cancelled 3.88 H Estim Creat Clear Calc Cancelled 16.07 Est GFR (MDRD) Af Amer Cancelled 20 L Est GFR (MDRD) Non-Af Cancelled 17 L BUN/Creatinine Ratio Cancelled 4.6 L Glucose Cancelled 127 H Calcium Cancelled 8.0 L Magnesium 1.7 Urine Color Urine Clarity Urine pH Ur Specific [place] Urine Protein Urine Glucose (UA) Urine Ketones Urine Occult Blood Urine Nitrite Urine Bilirubin Urine Urobilinogen Ur Leukocyte Esterase Urine RBC Urine WBC Ur Squamous Epith Cells Urine Bacteria Urine Mucus Crossmatch Discharge Diet: Low fat/ Low Cholesterol, 2000 mg Sodium Diet, Renal Diet Discharge Activity: Return to Normal Activity Home Medications: Medications to take at Discharge Albuterol Sulfate 2.5 mg IH Q4H PRN 11/13/18 Alprazolam [Xanax] 0.5 mg PO BID 11/13/18 Aspirin E.C. [Ecotrin] 81 mg PO DAILY@0800 11/13/18 Tamsulosin HCl [Flomax] 0.8 mg PO DAILY 11/13/18 Metoprolol(XL)Succ [Toprol Xl (Beta Kadi)] 100 mg PO BID 12/06/18 ascorbate calcium (Vitamin C) 500 mg tablet 500 mg PO DAILY 03/02/19 clopidogrel 75 mg tablet 75 mg PO DAILY 03/02/19 omega-3 fatty acids 1,000 mg capsule 1,000 mg PO BID 03/02/19 vitamin B complex-vitamin C-folic acid 0.8 mg tablet 1 tab PO DAILY 03/02/19 Cholecalciferol (VIT D3) [Vitamin D3] 1,000 unit PO DAILY 03/26/19 Cyanocobalamin (Vitamin B-12) [Vitamin B12] 2,500 mcg PO DAILY 03/26/19 Folic Acid 0.4 mg PO DAILY@0800 03/26/19 Atorvastatin Calcium [Lipitor] 80 mg PO QHS #30 tablet 03/29/19 Folic Acid/Vitamin B Comp W-C [Nephrocaps, Renaphro] 1 capsule PO DAILY #30 capsule 03/29/19 Pantoprazole Sodium [Protonix] 40 mg PO BID #60 tablet 03/29/19 hydrOXYzine tablet [Atarax tablet] 10 mg PO TID PRN PRN #21 tab 03/29/19 Following Prescrptions Were Given to Patient: Atorvastatin Calcium [Lipitor] 80 mg PO QHS #30 tablet Folic Acid/Vitamin B Comp W-C [Nephrocaps, Renaphro] 1 capsule PO DAILY #30 capsule hydrOXYzine tablet [Atarax tablet] 10 mg PO TID PRN PRN #21 tab PRN Reason: Itching Pantoprazole Sodium [Protonix] 40 mg PO BID #60 tablet Primary Care Physician: Tania Berger NP-C [Primary Care Provider] - Please follow up with your Primary Care Physician in: 1-2 weeks Please Follow Up With: Caleb Alaniz MD When: as directed Please Follow Up With: Armen Henderson MD When: 2 weeks Please Follow Up With: Chepe Barrientos MD When: as directed Please Follow Up With: Tania Berger NP-C Disposition: Home Minutes spent on discharge:: 35 Patient Condition:: Stable Medical Necessity - Tobacco Use Smoking Status: Current every day smoker Tobacco Use: Cigarettes Meaningful Use Info Meaningful Use Diagnoses (Choose all that apply): None applicable <Amadou Shane - Last Filed: 03/30/19 10:02> Discharge Date and Diagnosis - Secondary Discharge Diagnosis Chronic Problems (Last Updated 03/27/19 @ 14:05 by Amadou Shane MD) ESRD (end stage renal disease) (Chronic) History of non-ST elevation myocardial infarction (NSTEMI) (Chronic 01/21/11) Stented coronary artery (Chronic) 2003, JASON to circumflex ; 10/13/2009 tsfer from [facility] to [facility], total of 5 bare metal stents to RCA per Dr. 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 Osito Hernandez: NICHOLAS to LAD, reverse SVG to OMbranch of CX, reverse SVG to PDA of RCA. PDA endarterectomy. Status post peripheral artery angioplasty with insertion of stent (Chronic ~2010) Right common iliac, [facility] Atherosclerotic heart disease of [place] coronary artery without angina pectoris (Chronic) 2003, JASON to circumflex ; 10/10/2009 tsfer from [facility] to [facility], total of 5 bare metal stents to RCA; CABG X 3 vessels @ [facility] 01/31/2011 (critical left main and restenosis of RCA stents) Diastolic CHF (Chronic) HLD (hyperlipidemia) (Chronic) HTN (hypertension) (Chronic) PAD (peripheral artery disease) (Chronic) COPD (chronic obstructive pulmonary disease) (Chronic) Tobacco dependence (Chronic) Anemia (Chronic) BPH (benign prostatic hyperplasia) (Chronic) Hospital Course and Treatment Summary of Care Provided: Hospitalist note: Discharge summary above reviewed and I concur with the above discharge and treatment plan. Patient admitted because of anemia as well as blood in the stool and black tarry stool. He was found to have acute on chronic anemia which was presumed to be due to GI bleed. Patient was found to have black stool in the colostomy bag as well as streaks of blood. His stool was negative for occult blood. He was found to have hemoglobin of 5.4 g/dL on admission. He received a total of 4 units of packed RBCs and his hemoglobin went up to 8.9 g/dL upon discharge. He underwent upper EGD that revealed normal esophagus, normal stomach, normal duodenum, no evidence of GI bleed, ulcers or masses. During this admission, he did have significant leukocytosis and his white blood cell count went up to 35,000 and he had spikes of fever. Chest x-ray revealed bilateral basal haziness which seems to be chronic without evidence of acute infiltrate although the official report mentioned progressive infiltrate. Pneumonia ruled out. Patient remained afebrile for more than 24 hours. Blood culture showed no growth in 48 hours. His white blood cell count significantly improved spontaneously without any treatment. There was no indication to start IV antibiotics. His troponin was elevated and went up to 0.72. Patient denies any chest pain throughout admission and his EKG showed no acute ischemic changes. Case discussed with cardiology and recommended no cardiac work-up or intervention at this time. This elevated troponin attributed to acute on chronic anemia causing demand ischemia. Patient discharged home in a stable medical condition, continued on his previous home medications without any changes, recommended from with PCP in 1 to 2 weeks, follow-up with nephrology for dialysis, follow-up with Dr. Henderson in 2 weeks and follow-up with cardiology as scheduled. - Physical Exam General: Alert, Oriented x3, Cooperative, No apparent distress. HEENT: Atraumatic, PERRLA, EOMI. Neck: Supple, No JVD, Negative Carotid Bruits, Trachea Midline, Thyroid Normal. Lungs: Diminished breath sounds bilaterally, No rhonchi, No wheeze, No rales. Cardiovascular: Regular rate, Regular Rhythm, Normal S1, Normal S2, PMI Normal. Abdomen: Bowel Sounds Present, Soft, Non Tender, Non-Distended, No Hepato-splenomegaly, colostomy bag in place ileostomy. Extremities: No clubbing, No cyanosis, ++ edema Skin: No rashes, No breakdown Neurological: Cranial nerves are intact, normal power and tone, neuro grossly intact. This note was generated with aiHit dictation software. It may contain incorrect words, spelling, and punctuation that were not noted in checking the note before signing. - Physical Exam Vital Signs Temp Pulse Resp BP Pulse Ox 98.0 F 82 18 120/57 L 96 03/29/19 08:50 03/29/19 10:46 03/29/19 10:46 03/29/19 08:50 03/29/19 08:50 Oxygen Flow Rate (L/min) 2 Oxygen Delivery Method Nasal Cannula Weight: 153 lb 14.122 oz Body Mass Index (BMI) 25.4 Finger Stick Blood Glucose 200 Intake and Output for Last 24 Hours 03/27/19 03/28/19 03/29/19 23:59 23:59 23:59 Intake Total 2311 / 2311 1113 / 1113 380 / 380 Output Total 3000 / 3000 100 / 100 Balance 2311 / 2311 -1887 / -1887 280 / 280 Microbiology Past 72 Hours 03/27/19 05:40 Stool Occult Blood (ESA) - Final Stool Occult Blood Positive Laboratory Tests Past 24 Hrs 03/26/19 03/28/19 03/29/19 18:25 19:50 00:55 WBC 13.2 H RBC 2.78 L Hgb 8.9 L Hct 28.1 L MCV 101.1 H MCH 32.0 MCHC 31.7 L RDW 23.2 H RDW Differential 73.7 H Plt Count 252 MPV 9.7 Differential Comment SCANNED Sodium Potassium Chloride Carbon Dioxide Anion Gap BUN Creatinine Estim Creat Clear Calc Est GFR (MDRD) Af Amer Est GFR (MDRD) Non-Af BUN/Creatinine Ratio Glucose Calcium Magnesium Urine Color Yellow Urine Clarity Cloudy Urine pH 7.0 Ur Specific [place] 1.005 Urine Protein 100 H Urine Glucose (UA) Normal Urine Ketones 5 H Urine Occult Blood 150 H Urine Nitrite Negative Urine Bilirubin 1 H Urine Urobilinogen 1 H Ur Leukocyte Esterase 500 H Urine RBC 0 SEEN Urine WBC >100 SEEN Ur Squamous Epith Cells 0 SEEN Urine Bacteria 0 SEEN Urine Mucus 0 SEEN Crossmatch See Detail 03/29/19 03/29/19 00:55 00:55 WBC RBC Hgb Hct MCV MCH MCHC RDW RDW Differential Plt Count MPV Differential Comment Sodium Cancelled 135 L Potassium Cancelled 3.8 Chloride Cancelled 99 Carbon Dioxide Cancelled 31.0 Anion Gap Cancelled 5 BUN Cancelled 18 Creatinine Cancelled 3.88 H Estim Creat Clear Calc Cancelled 16.07 Est GFR (MDRD) Af Amer Cancelled 20 L Est GFR (MDRD) Non-Af Cancelled 17 L BUN/Creatinine Ratio Cancelled 4.6 L Glucose Cancelled 127 H Calcium Cancelled 8.0 L Magnesium 1.7 Urine Color Urine Clarity Urine pH Ur Specific [place] Urine Protein Urine Glucose (UA) Urine Ketones Urine Occult Blood Urine Nitrite Urine Bilirubin Urine Urobilinogen Ur Leukocyte Esterase Urine RBC Urine WBC Ur Squamous Epith Cells Urine Bacteria Urine Mucus Crossmatch Disposition: Home Minutes spent on discharge:: 33 Patient Condition:: Stable Meaningful Use Info Meaningful Use Diagnoses (Choose all that apply): None applicable Code Visit Inpatient E&M: 53967 Disch Hosp
--- NOTE | 2019-03-29 15:00 | DS.PCM_ITS ---
<Itz Bennett - Last Filed: 03/29/19 14:53> Discharge Date and Diagnosis Date of Admission: 03/26/19 Date of Discharge: 03/29/19 - Primary Discharge Diagnosis Acute on chronic anemia 2/2 presumed GI bleed Leukocytosis 2/2 blood product administration Abnormal trop 2/2 demand ischemi from severe anemia Chronic hypoxic resp failure 2/2 COPD ESRD Hx colonic ischemia Chronic diastolic CHF CAD prior CABGx3 PAD HTN HLD BPH - Secondary Discharge Diagnosis Chronic Problems (Last Updated 03/27/19 @ 14:05 by Amadou Shane MD) ESRD (end stage renal disease) (Chronic) History of non-ST elevation myocardial infarction (NSTEMI) (Chronic 01/21/11) Stented coronary artery (Chronic) 2003, JASON to circumflex ; 10/13/2009 tsfer from [facility] to [facility], total of 5 bare metal stents to RCA per Dr. Barrientos @ [facility]: 3.5 X 18 Electronic Console Display Operator, followed di stally by 3.0 X12 Electronic Console Display Operator to distal RCA;3.5 X 15 Electronic Console Display Operator, followed proximally by 4.0 X 18 Electronic Console Display Operator to Mid RCA; 4.0 X 18 Electronic Console Display Operator to Proximal RCA S/P CABG x 3 (Chronic 01/26/11) [facility] per Dr. Osito Hernandez: NICHOLAS to LAD, reverse SVG to OMbranch of CX, reverse SVG to PDA of RCA. PDA endarterectomy. Status post peripheral artery angioplasty with insertion of stent (Chronic ~201 1) Right common iliac, [facility] Atherosclerotic heart disease of robinson coronary artery without angina pectoris (Chronic) 2003, JASON to circumflex ; 10/10/2009 tsfer from [facility] to [facility], total of 5 bare metal stents to RCA; CABG X [address] [facility] 01/31/2011 (critical left main and restenosis of RCA stents) Diastolic CHF (Chronic) HLD (hyperlipidemia) (Chronic) HTN (hypertension) (Chronic) PAD (peripheral artery disease) (Chronic) COPD (chronic obstructive pulmonary disease) (Chronic) Tobacco dependence (Chronic) Anemia (Chronic) BPH (benign prostatic hyperplasia) (Chronic) Hospital Course and Treatment Imaging Results: RAD/Chest 1 View (Portable) IMPRESSION: Degenerative changes, as described above. No demonstrated acute cardiopulmonary process. RAD/Chest 1 View (Portable) IMPRESSION: Progressive bibasilar infiltrates. Blunting of both costophrenic angles. Consults: Santiago - Gen Surg Corbin - Nephro Operations: None Procedures: Colonoscopy Summary of Care Provided: Hospital course: The patient is a 68 year old M with past medical history as above who presented to the emergency room with hemoglobin of 5.4 found on routine lab work. He was down from 8.3 a week prior. He did complain of fatigue, weakness, shortness of breath. He has a history of end ileostomy and did have melena and bloody stools in his ileostomy bag. He is being followed as an outpatient by . His troponin was also elevated. He was admitted for possible GI bleed. He underwent an EGD which was essentially unremarkable. He received a total of 3 units of packed red blood cells. He had leukocytosis in response to the back red blood cells. He had no sign of an acute infectious process. His case was discussed with cardiology as his troponin went up to 0.728, they felt that this was demand ischemia secondary to severe anemia and did not need further work-up. Initially the patient had his aspirin and Plavix held. He was placed on a PPI twice daily. As he has significant underlying cardiac disease it is recommended he continue the aspirin and Plavix at discharge along with the PPI twice daily. If he has further bleeding he will need to stop these and possibly have a capsule endoscopy. At this time he is asymptomatic, he is discharged home in stable condition. Please follow-up with general surgery as directed, cardiology as directed, follow-up with your PCP in 1 to 2 weeks. Follow-up with dialysis on her previous schedule. This patient was seen by Itz Bennett PA-C under the supervision of Doctor Shane. [] - Physical Exam General: Alert, Oriented x3, Cooperative HEENT: Atraumatic, PERRLA, EOMI, Normocephalic Neck: Supple, No JVD, Negative Carotid Bruits Lungs: Clear to auscultation, Normal air movement Cardiovascular: Regular rate, No murmurs Abdomen: Bowel Sounds Present, Soft, Non Tender Extremities: No edema, Capillary Refill Less than 3 Seconds Skin: No rashes, No breakdown Musculoskeletal: No Tenderness to Palpation of Joints or Extremities Neurological: Cranial nerves II-XII grossly intact Psych/Mental Status: Normal Affect, Appropriate Vital Signs Temp Pulse Resp BP Pulse Ox 98.0 F 82 18 120/57 L 96 03/29/19 08:50 03/29/19 10:46 03/29/19 10:46 03/29/19 08:50 03/29/19 08:50 Oxygen Flow Rate (L/min) 2 Oxygen Delivery Method Nasal Cannula Weight: 153 lb 14.122 oz Body Mass Index (BMI) 25.4 Finger Stick Blood Glucose 200 Intake and Output for Last 24 Hours 03/27/19 03/28/19 03/29/19 23:59 23:59 23:59 Intake Total 2311 / 2311 1113 / 1113 380 / 380 Output Total 3000 / 3000 100 / 100 Balance 2311 / 2311 -1887 / -1887 280 / 280 Microbiology Past 72 Hours 03/27/19 05:40 Stool Occult Blood (ESA) - Final Stool Occult Blood Positive Laboratory Tests Past 24 Hrs 03/26/19 03/28/19 03/29/19 18:25 19:50 00:55 WBC 13.2 H RBC 2.78 L Hgb 8.9 L Hct 28.1 L MCV 101.1 H MCH 32.0 MCHC 31.7 L RDW 23.2 H RDW Differential 73.7 H Plt Count 252 MPV 9.7 Differential Comment SCANNED Sodium Potassium Chloride Carbon Dioxide Anion Gap BUN Creatinine Estim Creat Clear Calc Est GFR (MDRD) Af Amer Est GFR (MDRD) Non-Af BUN/Creatinine Ratio Glucose Calcium Magnesium Urine Color Yellow Urine Clarity Cloudy Urine pH 7.0 Ur Specific [place] 1.005 Urine Protein 100 H Urine Glucose (UA) Normal Urine Ketones 5 H Urine Occult Blood 150 H Urine Nitrite Negative Urine Bilirubin 1 H Urine Urobilinogen 1 H Ur Leukocyte Esterase 500 H Urine RBC 0 SEEN Urine WBC >100 SEEN Ur Squamous Epith Cells 0 SEEN Urine Bacteria 0 SEEN Urine Mucus 0 SEEN Crossmatch See Detail 03/29/19 03/29/19 00:55 00:55 WBC RBC Hgb Hct MCV MCH MCHC RDW RDW Differential Plt Count MPV Differential Comment Sodium Cancelled 135 L Potassium Cancelled 3.8 Chloride Cancelled 99 Carbon Dioxide Cancelled 31.0 Anion Gap Cancelled 5 BUN Cancelled 18 Creatinine Cancelled 3.88 H Estim Creat Clear Calc Cancelled 16.07 Est GFR (MDRD) Af Amer Cancelled 20 L Est GFR (MDRD) Non-Af Cancelled 17 L BUN/Creatinine Ratio Cancelled 4.6 L Glucose Cancelled 127 H Calcium Cancelled 8.0 L Magnesium 1.7 Urine Color Urine Clarity Urine pH Ur Specific [place] Urine Protein Urine Glucose (UA) Urine Ketones Urine Occult Blood Urine Nitrite Urine Bilirubin Urine Urobilinogen Ur Leukocyte Esterase Urine RBC Urine WBC Ur Squamous Epith Cells Urine Bacteria Urine Mucus Crossmatch Discharge Diet: Low fat/ Low Cholesterol, 2000 mg Sodium Diet, Renal Diet Discharge Activity: Return to Normal Activity Home Medications: Medications to take at Discharge Albuterol Sulfate 2.5 mg IH Q4H PRN 11/13/18 Alprazolam [Xanax] 0.5 mg PO BID 11/13/18 Aspirin E.C. [Ecotrin] 81 mg PO DAILY@0800 11/13/18 Tamsulosin HCl [Flomax] 0.8 mg PO DAILY 11/13/18 Metoprolol(XL)Succ [Toprol Xl (Beta Kadi)] 100 mg PO BID 12/06/18 ascorbate calcium (Vitamin C) 500 mg tablet 500 mg PO DAILY 03/02/19 clopidogrel 75 mg tablet 75 mg PO DAILY 03/02/19 omega-3 fatty acids 1,000 mg capsule 1,000 mg PO BID 03/02/19 vitamin B complex-vitamin C-folic acid 0.8 mg tablet 1 tab PO DAILY 03/02/19 Cholecalciferol (VIT D3) [Vitamin D3] 1,000 unit PO DAILY 03/26/19 Cyanocobalamin (Vitamin B-12) [Vitamin B12] 2,500 mcg PO DAILY 03/26/19 Folic Acid 0.4 mg PO DAILY@0800 03/26/19 Atorvastatin Calcium [Lipitor] 80 mg PO QHS #30 tablet 03/29/19 Folic Acid/Vitamin B Comp W-C [Nephrocaps, Renaphro] 1 capsule PO DAILY #30 capsule 03/29/19 Pantoprazole Sodium [Protonix] 40 mg PO BID #60 tablet 03/29/19 hydrOXYzine tablet [Atarax tablet] 10 mg PO TID PRN PRN #21 tab 03/29/19 Following Prescrptions Were Given to Patient: Atorvastatin Calcium [Lipitor] 80 mg PO QHS #30 tablet Folic Acid/Vitamin B Comp W-C [Nephrocaps, Renaphro] 1 capsule PO DAILY #30 capsule hydrOXYzine tablet [Atarax tablet] 10 mg PO TID PRN PRN #21 tab PRN Reason: Itching Pantoprazole Sodium [Protonix] 40 mg PO BID #60 tablet Primary Care Physician: Tania Berger NP-C [Primary Care Provider] - Please follow up with your Primary Care Physician in: 1-2 weeks Please Follow Up With: Caleb Alaniz MD When: as directed Please Follow Up With: Armen Henderson MD When: 2 weeks Please Follow Up With: Chepe Barrientos MD When: as directed Please Follow Up With: Tania Berger NP-C Disposition: Home Minutes spent on discharge:: 35 Patient Condition:: Stable Medical Necessity - Tobacco Use Smoking Status: Current every day smoker Tobacco Use: Cigarettes Meaningful Use Info Meaningful Use Diagnoses (Choose all that apply): None applicable <Amadou Shane - Last Filed: 03/30/19 10:02> Discharge Date and Diagnosis - Secondary Discharge Diagnosis Chronic Problems (Last Updated 03/27/19 @ 14:05 by Amadou Shane MD) ESRD (end stage renal disease) (Chronic) History of non-ST elevation myocardial infarction (NSTEMI) (Chronic 01/21/11) Stented coronary artery (Chronic) 2003, JASON to circumflex ; 10/13/2009 tsfer from [facility] to [facility], total of 5 bare metal stents to RCA per Dr. Barrientos @ [facility]: 3.5 X 18 Electronic Console Display Operator, followed distally by 3.0 X12 Electronic Console Display Operator to distal RCA;3.5 X 15 Electronic Console Display Operator, followed proximally by 4.0 X 18 Electronic Console Display Operator to Mid RCA; 4.0 X 18 Electronic Console Display Operator to Proximal RCA S/P CABG x 3 (Chronic 01/26/11) [facility] per Dr. Osito Hernandez: NICHOLAS to LAD, reverse SVG to OMbranch of CX, reverse SVG to PDA of RCA. PDA endarterectomy. Status post peripheral artery angioplasty with insertion of stent (Chronic ~2010) Right common iliac, [facility] Atherosclerotic heart disease of robinson coronary artery without angina pectoris (Chronic) 2003, JASON to circumflex ; 10/10/2009 tsfer from [facility] to [facility], total of 5 bare metal stents to RCA; CABG X [address] [facility] 01/31/2011 (critical left main and restenosis of RCA stents) Diastolic CHF (Chronic) HLD (hyperlipidemia) (Chronic) HTN (hypertension) (Chronic) PAD (peripheral artery disease) (Chronic) COPD (chronic obstructive pulmonary disease) (Chronic) Tobacco dependence (Chronic) Anemia (Chronic) BPH (benign prostatic hyperplasia) (Chronic) Hospital Course and Treatment Summary of Care Provided: Hospitalist note: Discharge summary above reviewed and I concur with the above discharge and treatment plan. Patient admitted because of anemia as well as blood in the stool and black tarry stool. He was found to have acute on chronic anemia which was presumed to be due to GI bleed. Patient was found to have black stool in the colostomy bag as well as streaks of blood. His stool was negative for occult blood. He was found to have hemoglobin of 5.4 g/dL on admission. He received a total of 4 units of packed RBCs and his hemoglobin went up to 8.9 g/dL upon discharge. He underwent upper EGD that revealed normal esophagus, normal stomach, normal duodenum, no evidence of GI bleed, ulcers or masses. During this admission, he did have significant leukocytosis and his white blood cell count went up to 35,000 and he had spikes of fever. Chest x-ray revealed bilateral basal haziness which seems to be chronic without evidence of acute infiltrate although the official report mentioned progressive infiltrate. Pne umonia ruled out. Patient remained afebrile for more than 24 hours. Blood culture showed no growth in 48 hours. His white blood cell count significantly improved spontaneously without any treatment. There was no indication to start IV antibiotics. His troponin was elevated and went up to 0.72. Patient denies any chest pain throughout admission and his EKG showed no acute ischemic changes. Case discussed with cardiology and recommended no cardiac work-up or intervention at this time. This elevated troponin attributed to acute on chronic anemia causing demand ischemia. Patient discharged home in a stable medical condition, continued on his previous home medications without any changes, recommended from with PCP in 1 to 2 weeks, follow-up with nephrology for dialysis, follow-up with Dr. Henderson in 2 weeks and follow-up with cardiology as scheduled. - Physical Exam General: Alert, Oriented x3, Cooperative, No apparent distress. HEENT: Atraumatic, PERRLA, EOMI. Neck: Supple, No JVD, Negative Carotid Bruits, Trachea Midline, Thyroid Normal. Lungs: Diminished breath sounds bilaterally, No rhonchi, No wheeze, No rales. Cardiovascular: Regular rate, Regular Rhythm, Normal S1, Normal S2, PMI Normal. Abdomen: Bowel Sounds Present, Soft, Non Tender, Non-Distended, No Hepato- splenomegaly, colostomy bag in place ileostomy. Extremities: No clubbing, No cyanosis, ++ edema Skin: No rashes, No breakdown Neurological: Cranial nerves are intact, normal power and tone, neuro grossly intact. This note was generated with [employer] dictation software. It may contain incorrect words, spelling, and punctuation that were not noted in checking the note before signing. - Physical Exam Vital Signs Temp Pulse Resp BP Pulse Ox 98.0 F 82 18 120/57 L 96 03/29/19 08:50 03/29/19 10:46 03/29/19 10:46 03/29/19 08:50 03/29/19 08:50 Oxygen Flow Rate (L/min) 2 Oxygen Delivery Method Nasal Cannula Weight: 153 lb 14.122 oz Body Mass Index (BMI) 25.4 Finger Stick Blood Glucose 200 Intake and Output for Last 24 Hours 03/27/19 03/28/19 03/29/19 23:59 23:59 23:59 Intake Total 2311 / 2311 1113 / 1113 380 / 380 Output Total 3000 / 3000 100 / 100 Balance 2311 / 2311 -1887 / -1887 280 / 280 Microbiology Past 72 Hours 03/27/19 05:40 Stool Occult Blood (ESA) - Final Stool Occult Blood Positive Laboratory Tests Past 24 Hrs 03/26/19 03/28/19 03/29/19 18:25 19:50 00:55 WBC 13.2 H RBC 2.78 L Hgb 8.9 L Hct 28.1 L MCV 101.1 H MCH 32.0 MCHC 31.7 L RDW 23.2 H RDW Differential 73.7 H Plt Count 252 MPV 9.7 Differential Comment SCANNED Sodium Potassium Chloride Carbon Dioxide Anion Gap BUN Creatinine Estim Creat Clear Calc Est GFR (MDRD) Af Amer Est GFR (MDRD) Non-Af BUN/Creatinine Ratio Glucose Calcium Magnesium Urine Color Yellow Urine Clarity Cloudy Urine pH 7.0 Ur Specific [place] 1.005 Urine Protein 100 H Urine Glucose (UA) Normal Urine Ketones 5 H Urine Occult Blood 150 H Urine Nitrite Negative Urine Bilirubin 1 H Urine Urobilinogen 1 H Ur Leukocyte Esterase 500 H Urine RBC 0 SEEN Urine WBC >100 SEEN Ur Squamous Epith Cells 0 SEEN Urine Bacteria 0 SEEN Urine Mucus 0 SEEN Crossmatch See Detail 03/29/19 03/29/19 00:55 00:55 WBC RBC Hgb Hct MCV MCH MCHC RDW RDW Differential Plt Count MPV Differential Comment Sodium Cancelled 135 L Potassium Cancelled 3.8 Chloride Cancelled 99 Carbon Dioxide Cancelled 31.0 Anion Gap Cancelled 5 BUN Cancelled 18 Creatinine Cancelled 3.88 H Estim Creat Clear Calc Cancelled 16.07 Est GFR (MDRD) Af Amer Cancelled 20 L Est GFR (MDRD) Non-Af Cancelled 17 L BUN/Creatinine Ratio Cancelled 4.6 L Glucose Cancelled 127 H Calcium Cancelled 8.0 L Magnesium 1.7 Urine Color Urine Clarity Urine pH Ur Specific [place] Urine Protein Urine Glucose (UA) Urine Ketones Urine Occult Blood Urine Nitrite Urine Bilirubin Urine Urobilinogen Ur Leukocyte Esterase Urine RBC Urine WBC Ur Squamous Epith Cells Urine Bacteria Urine Mucus Crossmatch Disposition: Home Minutes spent on discharge:: 33 Patient Condition:: Stable Meaningful Use Info Meaningful Use Diagnoses (Choose all that apply): None applicable Code Visit Inpatient E&M: 30155 Disch Hosp
--- NOTE | 2019-03-30 13:56 | CASEMGMT ---
RAYMOND CM DC PHONE CALL DC DATE: 03/29/19 DC Disposition: Home LACE/STRATA: 15/ Attempted call to patient via phone. No answer and no message machine with identifier. Deangelo UMAÑAN RN ACM
--- NOTE | 2019-03-31 14:36 | CM.UR ---
RAYMOND CM DC PHONE CALL DC DATE: 03/29/19 DC Disposition: Home LACE/STRATA: 15/ Been feeling ok since left hospital. No new s/s at this time. Denies any questions regarding discharge instructions. States did NOT fill 2 of the rx: The first was the lipitor. Already taking crestor and getting via mail order from [email or web address]. Not going to change until seen by cardio and if he feels he should then he will. Didn't fill nephro caps--states dialysis give him those. Went over f/u appts. is helping patient as needed. Roxana Jean RN, CCM.
== END 2019-03-29 11:50 | disposition home or self-care (01) | DRG 811 ==
LOC: ED 16:36 → PCU 18:03
PROVIDERS: Hospitalist; Nurse Practitioner Family; Surgery; Admitting Provider Internal Medicine; Emergency Provider Emergency Medicine; Family Provider Nurse Practitioner Family; PCP Nurse Practitioner Family; Visit Provider Hospitalist
PROC: 0DJ08ZZ Inspection of Upper Intestinal Tract, Via Natural or Artificial Opening Endoscopic (ICD-10-PCS; CPT 43235; principal; 2019-03-27 11:25)
DX: D50.0 Iron deficiency anemia secondary to blood loss (chronic) (principal); N18.6 End stage renal disease; J96.11 Chronic respiratory failure with hypoxia; I24.8 Other forms of acute ischemic heart disease; I13.2 Hypertensive heart and chronic kidney disease with heart failure and with stage 5 chronic kidney disease, or end stage renal disease; I50.32 Chronic diastolic (congestive) heart failure; I25.10 Atherosclerotic heart disease of native coronary artery without angina pectoris; E78.5 Hyperlipidemia, unspecified; N40.0 Benign prostatic hyperplasia without lower urinary tract symptoms; F17.210 Nicotine dependence, cigarettes, uncomplicated; Z95.1 Presence of aortocoronary bypass graft; Z95.5 Presence of coronary angioplasty implant and graft; Z99.2 Dependence on renal dialysis; Z79.82 Long term (current) use of aspirin; Z93.2 Ileostomy status; Z99.81 Dependence on supplemental oxygen; I73.9 Peripheral vascular disease, unspecified
CPT/HCPCS: 36415; 71045; 80048; 80069; 81001; 82274; 83605; 83735; 84484; 85018; 85025; 85027; 85610; 86850; 86900; 86920; 86922; 87040; 90937; 93005; 94002; 94003; 94640; 99285; 99406; J7030; J7040; P9016; P9040; A4216; G0257; J1940

== ENCOUNTER → 2019-03-26 | Outpatient (CLI) | payer MEDICARE, SELFPAY ==
[2019-03-19 11:44] VITALS: BMI 24.0
[2019-03-26 14:47] LABS: Hemoglobin 5.2 g/dl (13.0-16.5)
== END | disposition home or self-care (01) ==
LOC: LABSPEC 14:11
PROVIDERS: Family Provider Nurse Practitioner Family; PCP Nurse Practitioner Family; Referring Provider Internal Medicine Nephrology; Visit Provider Internal Medicine Nephrology
DX: D64.9 Anemia, unspecified (principal)
CPT/HCPCS: 85018

== ENCOUNTER 2019-04-09 16:49 | Inpatient (IN) | payer MEDICARE, SELFPAY ==
[2019-03-29 10:49] VITALS: BMI 25.4
[2019-04-09] VITALS (15 sets, daily range): BP systolic 118–153; BP diastolic 49–78; PULSE 85–110; RESP 12–35; TEMP 35.8–37.1; O2SAT 40–100; BMI 23.6; BMI 24.0; BMI 24.1
--- NOTE | 2019-04-09 17:12 | ED.RN ---
PT PLACED ON BIPAP BY RESPIRATORY THERAPY
--- NOTE | 2019-04-09 17:18 | RAD_ITS ---
STUDY: X-RAY CHEST REASON FOR EXAM: Male, 68 years old. Shortness of breath TECHNIQUE: Frontal view of the chest COMPARISON: X-Ray Chest March 27 2019 FINDINGS: Post CABG changes are present. The lungs are clear. Mild bilateral costophrenic angle scarring versus trace effusions present. There is no pneumothorax. The heart is normal in size. The visualized osseous structures are within normal limits. RAD/Chest 1 View (Portable) IMPRESSION: No acute thoracic pathology. Mild bilateral costophrenic angle scarring versus trace effusions. Electronically Signed: Pb Guadalupe, at 17:34 EDT Tel , Service support ,
--- NOTE | 2019-04-09 17:19 | ED.VISSUMM ---
- ER Visit Summary Date of Service: 04/09/19 Chief Complaint: Shortness of breath History of Present Illness: The patient is a 68 M presenting with shortness of breath. Patient states this started today during dialysis. Following dialysis he continued to get more and more short of breath. He denies chest pain. He states he had a cough approximately a week ago. He also had a recent admission for anemia requiring blood transfusions. He states he did complete dialysis today. He is on home O2 at night only. He is a smoker. Physical Examination: Vitals are stable. Patient is afebrile. Alert moderate distress. Pulse ox 84% on room air HEENT exam is unremarkable. Neck is supple. Lungs are diminished and wheezing bilaterally. Retractions Heart is irregularly irregular Abdomen is soft nontender nondistended. Extremities are unremarkable. Skin is warm and dry. No focal neurologic deficit. Remainder of exam is unremarkable. Emergency Department Course and Treatment: Patient was started on BiPAP on arrival. EKG shows A. fib rate of 113, LVH. He was given albuterol, Atrovent aerosols. CBC normal except hemoglobin 9.9. Chemistries normal except for CO2 35, glucose 111, creatinine 2.93. Troponin 0.026. Patient is given albuterol, Atrovent aerosols. He was given Solu-Medrol IV. Chest x-ray shows no acute thoracic pathology. Mild bilateral costophrenic angle scarring versus trace effusions. On reevaluation, patient is improved on BiPAP. Discussed with the hospitalist for admission. Disposition: Admission Impression: COPD exacerbation, hypoxia This note was generated with [employer] dictation software. It may contain incorrect words, spelling, and punctuation that were not noted in review of the chart prior to signing ED Disposition - Plan for ED Patient: Referrals: Tania Berger NP-C [Primary Care Provider] -
[2019-04-09] MEDS: Ipratropium/Albuterol Sulfate 3 ML AMPUL.NEB INHALATION (17:27)
[2019-04-09] MEDS: Albuterol 2.5 MG/3 ML VIAL.NEB. INHALATION ×2 (17:27)
[2019-04-09 17:30] LABS: Basophil# 0.05 X10^3/uL; Basophil% 0.5 % (0-1); Eosinophil# 0.57 X10^3/uL; Eosinophils% 5.5 % (0-5); Hematocrit 32.1 % (40-54); Hemoglobin 9.9 g/dl (13.0-16.5); Lymphocyte % 10.6 % (19-41); Mean Corp Hgb Conc 30.8 g/gl (32-36); Mean Corpuscular Hgb 31.5 pg (27.0-32.0); Mean Corpuscular Volume 102.2 fL (80-94); Mean Platelet Vol. 10.1 fl (6.2-12.0); Monocyte# 0.73 X10^3/uL; Neutrophil # 7.95 X10^3/uL (2.7-7.7); Neutrophil % 76.2 % (47-70); POSITIVE COUNT NO; POSITIVE DIFFERENTIAL NO; POSITIVE MORPHOLOGY NO; Platelet Count 261 K/mm3 (150-450); RBC Distribution Width CV 18.1 % (11.6-14.6); RBC Distribution Width SD 63.7 fl (35.1-43.9); Red Blood Count 3.14 M/mm3 (4.6-6.2); White Blood Count 10.4 K/mm3 (4.4-11.0)
[2019-04-09 17:41] LABS: Anion Gap 5 (5-15); BUN 16 mg/dL (7-18); BUN/Creat Ratio 5.5 RATIO (10-20); Calcium,Total 8.4 mg/dL (8.5-10.1); Chloride 96 mmol/L (98-107); Creatinine, Serum 2.93 mg/dL (0.70-1.30); EST Glomerular Filtration Rate 23 mL/min (>60); Est Glom Filt Rate - Afr Amer 28 mL/min (>60); Estimated Creatinine Clearance 22.08 ml/min; Glucose 111 mg/dL (74-106); Potassium 3.6 mmol/L (3.5-5.1); Sodium Level 136 mmol/L (136-145)
[2019-04-09] MEDS: MethylPREDNISolone 125 MG/2 ML Vial IV (17:50)
--- NOTE | 2019-04-09 19:20 | PCM.HP.STD ---
Problem List (1) COPD exacerbation Status: Acute (2) Acute respiratory failure with hypoxia Status: Acute History of Present Illness Date of Admission: 04/09/19 Chief Complaint: Shortness of breath. The patient is a 68 year old M became short of breath over the past several days. His progressive gotten worse to the point where he had come to the emergency room. Was noted to be hypoxic at 84% in the emergency room. Eventually placed on BiPAP, given Solu-Medrol and bronchodilators. Feeling better. Similar to prior COPD exacerbations. States that he was on prednisone 5 mg daily but then the prescription lapsed about 2 weeks ago. 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 States that his primary care physician was continuing the prednisone but I am unclear as to why that was stopped or frankly why he was on its chronically to begin with. [] Past Medical History Past Medical History (Chronic Problems): Chronic Problems (Last Updated 03/27/19 @ 14:05 by Amadou Shane MD) ESRD (end stage renal disease) (Chronic) History of non-ST elevation myocardial infarction (NSTEMI) (Chronic 01/21/11) Stented coronary artery (Chronic) 2003, JASON to circumflex ; 10/13/2009 tsfer from [facility] to [facility], total of 5 bare metal stents to RCA per Dr. Barrientos @ [facility]: 3.5 X 18 Canned Food Reconditioning Inspector, followed distally by 3.0 X12 Canned Food Reconditioning Inspector to distal RCA;3.5 X 15 Canned Food Reconditioning Inspector, followed proximally by 4.0 X 18 Canned Food Reconditioning Inspector to Mid RCA; 4.0 X 18 Canned Food Reconditioning Inspector to Proximal RCA S/P CABG x 3 (Chronic 01/26/11) [facility] per Dr. Osito Hernandez: NICHOLAS to LAD, reverse SVG to OMbranch of CX, reverse SVG to PDA of RCA. PDA endarterectomy. Status post peripheral artery angioplasty with insertion of stent (Chronic ~2010) Right common iliac, [facility] Atherosclerotic heart disease of [place] coronary artery without angina pectoris (Chronic) 2003, JASON to circumflex ; 10/10/2009 tsfer from [facility] to [facility], total of 5 bare metal stents to RCA; CABG X 3 vessels @ [facility] 01/31/2011 (critical left main and restenosis of RCA stents) Diastolic CHF (Chronic) HLD (hyperlipidemia) (Chronic) HTN (hypertension) (Chronic) PAD (peripheral artery disease) (Chronic) COPD (chronic obstructive pulmonary disease) (Chronic) Tobacco dependence (Chronic) Anemia (Chronic) BPH (benign prostatic hyperplasia) (Chronic) Medical History: Medical History (Last Reviewed 04/09/19 @ 19:30 by Chris Stark DO) History of non-ST elevation myocardial infarction (NSTEMI) (Chronic) Onset Date: 01/21/11 I25.2 Atherosclerotic heart disease of [place] coronary artery without angina pectoris (Chronic) I25.10 2003, JASON to circumflex ; 10/10/2009 tsfer from [facility] to [facility], total of 5 bare metal stents to RCA; CABG X 3 vessels @ [facility] 01/31/2011 (critical left main and restenosis of RCA stents) Diastolic CHF (Chronic) I50.30 HLD (hyperlipidemia) (Chronic) E78.5 HTN (hypertension) (Chronic) I10 PAD (peripheral artery disease) (Chronic) I73.9 COPD (chronic obstructive pulmonary disease) (Chronic) J44.9 Tobacco dependence (Chronic) F17.200 Anemia (Chronic) D64.9 BPH (benign prostatic hyperplasia) (Chronic) N40.0 Allergies irbesartan [From Avapro] Allergy (Severe, Verified 04/09/19 16:52) Blisters zolpidem [From Ambien] Adverse Reaction (Severe, Verified 04/09/19 16:52) made me go crazy, memory loss amoxicillin Adverse Reaction (Intermediate, Verified 04/09/19 16:52) Other TOLERATES ZOSYN PASSES BLOOD IN STOOL metronidazole [From Flagyl] Adverse Reaction (Verified 04/09/19 16:52) Other pt states he got palpitations and nose bleed. Home Medications: Ambulatory Orders Medication Instructions Recorded Albuterol Sulfate 2.5 mg IH Q4H PRN 11/13/18 Alprazolam [Xanax] 0.5 mg PO BID 11/13/18 Aspirin E.C. [Ecotrin] 81 mg PO DAILY@0800 11/13/18 Tamsulosin HCl [Flomax] 0.8 mg PO DAILY 11/13/18 Metoprolol(XL)Succ [Toprol Xl 100 mg PO BID 12/06/18 (Beta Kadi)] ascorbate calcium (Vitamin C) 500 500 mg PO DAILY 03/02/19 mg tablet clopidogrel 75 mg tablet 75 mg PO DAILY 03/02/19 omega-3 fatty acids 1,000 mg 1,000 mg PO BID 03/02/19 capsule vitamin B complex-vitamin C-folic 1 tab PO DAILY 03/02/19 acid 0.8 mg tablet Cholecalciferol (VIT D3) [Vitamin 1,000 unit PO DAILY 03/26/19 D3] Cyanocobalamin (Vitamin B-12) 2,500 mcg PO DAILY 03/26/19 [Vitamin B12] Folic Acid 0.4 mg PO DAILY 03/26/19 Omeprazole 20 mg PO BID 04/09/19 Rosuvastatin Calcium 40 mg PO QHS 04/09/19 Surgical History: Surgical History (Last Reviewed 04/09/19 @ 19:30 by Chris Stark DO) Stented coronary artery (Chronic) Z95.5 2003, JASON to circumflex ; 10/13/2009 tsfer from [facility] to [facility], total of 5 bare metal stents to RCA per Dr. Barrientos @ [facility]: 3.5 X 18 Canned Food Reconditioning Inspector, followed distally by 3.0 X12 Canned Food Reconditioning Inspector to distal RCA;3.5 X 15 Canned Food Reconditioning Inspector, followed proximally by 4.0 X 18 Canned Food Reconditioning Inspector to Mid RCA; 4.0 X 18 Canned Food Reconditioning Inspector to Proximal RCA S/P CABG x 3 (Chronic) Onset Date: 01/26/11 Z95.1 [facility] per Dr. Osito Hernandez: NICHOLAS to LAD, reverse SVG to OMbranch of CX, reverse SVG to PDA of RCA. PDA endarterectomy. history of surgically created arteriovenous fistula s/p fistulogram Onset Date: ~09/28/18 Surgical History: coronary bypass surgery, tonsillectomy, - Psychiatric History: No pertinent psych hx Smoking Status: Light Smoker (<10/day) Tobacco Use: Cigarettes - *Family History Maternal Family History: Family History (Last Reviewed 04/09/19 @ 19:31 by Chris Stark DO) Father CAD (coronary artery disease) Hypertension Kidney disease CVA (cerebral vascular accident) Other Cancer History Items: Heart Disease Paternal Family History: Family History (Last Reviewed 04/09/19 @ 19:31 by Chris Stark DO) Father CAD (coronary artery disease) Hypertension Kidney disease CVA (cerebral vascular accident) Other Cancer History Items: Heart Disease, Hypertension, Renal Disease Review of Systems Constitutional: Denies: Anorexia, Chills, Fever, Night Sweats Eyes: Denies: Blurred vision, Conjunctivae Inflammation HEENT: Denies: Head Aches, Sinus Congestion, Sinus Drainage Cardiovascular: Denies: Chest Pain, Palpitations Respiratory: Denies: Cough, Shortness of breath at rest, Sputum production Gastrointestinal: Denies: Abdominal Pain, Nausea, Vomiting Genitourinary: Denies: Dysuria Musculoskeletal: Denies: Joint Pain, Joint Tenderness Skin: Denies: Dryness, Jaundice Neurological: Denies: Numbness, Tingling, Focal weakness Psychiatric: Denies: Anxiety, Depression Endocrine: Denies: Change in Body Habitus, Heat/ Cold Intolerance Hematologic/ Lymphatic: Denies: Easy Bruising, Easy Bleeding VTE Information - Inpt Only VTE Present on Admission: No VTE Mechan Device Prophylaxis: None VTE Pharm Prophylaxis ordered?: Yes Patient Problems: Active and Suspected Problems (Last Updated 03/27/19 @ 14:05 by Amadou Shane MD) COPD exacerbation (Acute) Acute respiratory failure with hypoxia (Acute) - Physical Exam General: Alert, No apparent distress, - - No respiratory distress. No conversational dyspnea. Seen on BiPAP. HEENT: Atraumatic, Normocephalic Oral: Moist Mucosa, No Gingival or Mucosal Lesions/ Ulcerations Neck: No Nodes, Thyroid Normal Size and Texture Lungs: No rales, Diminished, Wheezes Cardiovascular: Regular rate Abdomen: Bowel Sounds Present, Soft, Non Tender, Non-Distended, No Hepato-splenomegaly Extremities: No edema, No Calf Tenderness Skin: No rashes, No breakdown, - - Spider angiomata on the chest. Musculoskeletal: No Tenderness to Palpation of Joints or Extremities, No Muscle Wasting Psych/Mental Status: Normal Affect, Appropriate Vital Signs Temp Pulse Resp BP Pulse Ox 36.9 C 85 21 H 148/49 H 100 04/09/19 17:52 04/09/19 19:00 04/09/19 17:52 04/09/19 19:00 04/09/19 17:52 Oxygen Delivery Method Bi-pap Weight: 65.6 kg Body Mass Index (BMI) 24.0 Finger Stick Blood Glucose 200 Laboratory Tests Past 24 Hrs 04/09/19 04/09/19 17:08 17:08 WBC 10.4 RBC 3.14 L Hgb 9.9 L Hct 32.1 L MCV 102.2 H MCH 31.5 MCHC 30.8 L RDW 18.1 H RDW Differential 63.7 H Plt Count 261 MPV 10.1 Immature Gran % (Auto) 0.200 Neut % (Auto) 76.2 H Lymph % (Auto) 10.6 L [place] % (Auto) 7.0 Eos % (Auto) 5.5 H Baso % (Auto) 0.5 Absolute Neuts (auto) 8.0 H Absolute Lymphs (auto) 1.10 Total Counted Not Reportable Sodium 136 Potassium 3.6 Chloride 96 L Carbon Dioxide 35.0 H Anion Gap 5 BUN 16 Creatinine 2.93 H Estim Creat Clear Calc 22.08 Est GFR (MDRD) Af Amer 28 L Est GFR (MDRD) Non-Af 23 L BUN/Creatinine Ratio 5.5 L Glucose 111 H Calcium 8.4 L Troponin I 0.026 Chest x-ray personally reviewed and showed hyperinflated airways but no infiltrate nor edema. Assessment/Plan All Active Problems (Last Updated 03/27/19 @ 14:05 by Amadou Shane MD) COPD exacerbation (Acute) Acute respiratory failure with hypoxia (Acute) 1. Acute hypoxic respiratory failure Present on admission Patient was hypoxic and did require placement on BiPAP continue with BiPAP and wean as tolerated 2. Acute COPD exacerbation Continue with bronchodilators and Solu-Medrol Patient was to follow-up with pulmonology group here but has yet to have that appointment Consult officer captain here Check records from Dr. Quesada's office 3. End-stage renal disease He did his dialysis session today Is next due for dialysis on the . If it is expected the patient will be still here on that time then consult his store receiving specialist, Dr. Alaniz. 4. VTE prophylaxis: Moderate risk. Subcu heparin. 5. Advanced care planning: Discussed with patient about CPR, ventilation and PEG tube. Patient states that he wants all that. Therefore, patient is full CODE STATUS and desiring PEG tube if the need arises. Code Visit Inpatient E&M: 89504 Init Hosp L3
--- NOTE | 2019-04-09 20:32 | NURSING ---
patient refusing bed alarm. explained to patient the reasoning behind it and patient still refused saying he would lift up his butt frequently to set it off to get us to run to his room. patient agreed to obey and use the call light before getting out of bed. this RN explained that as long as he obeyed and did not try to get out of bed by himself, that we would leave the bed alarm off. fall risk band in place and fall risk sign on door.
[2019-04-09] MEDS: Atorvastatin Calcium 80 MG Tablet PO (21:08)
[2019-04-09] MEDS: guaiFENesin 600 MG Tablet PO (21:09)
[2019-04-09] MEDS: Omega-3 Acid Ethyl Esters 1 GM Capsule PO (21:09)
[2019-04-09] MEDS: Pantoprazole Sodium 20 MG Tablet PO (21:09)
[2019-04-09] MEDS: ALPRAZolam 0.5 MG Tablet PO (21:10)
[2019-04-09] MEDS: Metoprolol(XL)Succ 100 MG Tablet PO (21:10)
[2019-04-09 22:00] LABS: Allen Test POS; Base Excess 12 mmol/L (-2 to +2); Bicarbonate 34.6 mmol/L (22-26); Blood Gas Specimen Type ART; O2 Delivery Device Nasal Can; PO2 83 mmHG (75-100); SITE R Brachial; SO2 97 % (95-99); Time Given 2140; Total Carbon Dioxide 36 mmol/L; pCO2 41.7 mmHg (35-45); pH 7.53 (7.35-7.45)
[2019-04-09] MEDS: Acetaminophen 325 MG Tablet 650 MG PO (22:42)
[2019-04-10] VITALS (17 sets, daily range): BP systolic 111–144; BP diastolic 40–61; PULSE 60–83; RESP 12–24; TEMP 36.4–37.4; O2SAT 95–100
[2019-04-10] MEDS: Albuterol 2.5 MG/3 ML VIAL.NEB. INHALATION (00:02)
[2019-04-10] MEDS: 0.9% NaCl Peripheral Flush Adult/Peds IV ×2 (06:10→13:51)
[2019-04-10 06:30] LABS: Absolute Lymphocyte Count 0.53 X10^3/ul (0.83-4.51); Absolute Neutrophil Count 4.9 X10^3/uL (2.0-7.7); Eosinophil# 0.01 X10^3/uL; Eosinophils% 0.2 % (0-5); Hematocrit 30.5 % (40-54); Hemoglobin 9.2 g/dl (13.0-16.5); Lymphocyte # 0.53 X10^3/ul (4.0); Lymphocyte % 9.6 % (19-41); Mean Corp Hgb Conc 30.2 g/gl (32-36); Mean Corpuscular Hgb 31.2 pg (27.0-32.0); Mean Corpuscular Volume 103.4 fL (80-94); Mean Platelet Vol. 10.3 fl (6.2-12.0); Monocyte# 0.04 X10^3/uL; Monocyte% 0.7 % (0-10); Neutrophil # 4.93 X10^3/uL (2.7-7.7); Neutrophil % 89.1 % (47-70); Platelet Count 218 K/mm3 (150-450); RBC Distribution Width CV 18.4 % (11.6-14.6); RBC Distribution Width SD 64.2 fl (35.1-43.9); Red Blood Count 2.95 M/mm3 (4.6-6.2); White Blood Count 5.5 K/mm3 (4.4-11.0)
[2019-04-10 06:42] LABS: Differential Indicated SCAN CRITERIA MET; POSITIVE COUNT NO; POSITIVE DIFFERENTIAL YES; POSITIVE MORPHOLOGY NO
[2019-04-10] MEDS: Ipratropium/Albuterol Sulfate 3 ML AMPUL.NEB INHALATION ×3 (06:52→14:45)
[2019-04-10 06:53] LABS: ALB/GLOB Ratio 0.7 RATIO (0.9-2.4); AST(SGOT) 14 U/L (15-37); Alanine Aminotransfer ALT/SGPT 15 U/L (16-61); Albumin, Serum 2.7 g/dL (3.2-5.0); Alkaline Phosphatase 96 U/L (45-117); Anion Gap 7 (5-15); BUN 31 mg/dL (7-18); BUN/Creat Ratio 7.4 RATIO (10-20); Calcium,Total 8.7 mg/dL (8.5-10.1); Chloride 94 mmol/L (98-107); Creatinine, Serum 4.19 mg/dL (0.70-1.30); EST Glomerular Filtration Rate 15 mL/min (>60); Est Glom Filt Rate - Afr Amer 18 mL/min (>60); Estimated Creatinine Clearance 14.88 ml/min; Globulin 4.1 g/dL (2.2-4.2); Glucose 166 mg/dL (74-106); Potassium 3.9 mmol/L (3.5-5.1); Protein, Total 6.8 g/dL (6.4-8.2); Sodium Level 135 mmol/L (136-145)
[2019-04-10 07:11] LABS: Differential Comment SCANNED; Macrocytosis 3+; Platelet Estimate ADEQUATE (ADEQ); Polychromasia RARE
[2019-04-10] MEDS: Pantoprazole Sodium 20 MG Tablet PO (08:39)
[2019-04-10] MEDS: Omega-3 Acid Ethyl Esters 1 GM Capsule PO (08:40)
[2019-04-10] MEDS: Cyanocobalamin 500 MCG Tablet 2500 MCG PO (08:40)
[2019-04-10] MEDS: Folic Acid 1 MG Tablet 0.5 MG PO (08:41)
[2019-04-10] MEDS: guaiFENesin 600 MG Tablet PO (08:42)
[2019-04-10] MEDS: Metoprolol(XL)Succ 100 MG Tablet PO (08:42)
[2019-04-10] MEDS: Clopidogrel Bisulfate 75 MG Tablet PO (08:42)
[2019-04-10] MEDS: Folic Acid/Vitamin B Comp W-C 1 Capsule 1 CAP PO (08:42)
[2019-04-10] MEDS: Aspirin E.C. 81 MG Tablet PO (08:43)
[2019-04-10] MEDS: Tamsulosin HCl 0.4 MG Capsule 0.8 MG PO (08:43)
--- NOTE | 2019-04-10 08:54 | CASEMGMT ---
Patient has a Healthcare POA on file at [facility]. He does not have a Healthcare LW and is not interested in completing documents. Elaine BARTH MSW
--- NOTE | 2019-04-10 09:14 | CASEMGMT ---
Readmission chart review: Pt initially admitted 03/26-03/29/19 for Acute severe anemia. See assessment completed by this RN CM on 03/27/19. Pt declined HHC/OP therapy at that time and went home with support from . Pt states has been compliant with dialysis(M,W,F at [facility]). Pt readmitted 04/09/19 for COPD, Acute respiratory failure w/ hypoxia. CM to follow for PT/OT evals and any further discharge planning/needs. Pt already has cpap and 2 liters home oxygen thru [facility]. SStaten RN JOHANNA
--- NOTE | 2019-04-10 11:01 | PCM.PN.HOSP ---
Patient Problems: Active and Suspected Problems (Last Reviewed 04/09/19 @ 19:30 by Chris Stark DO) COPD exacerbation (Acute) Acute respiratory failure with hypoxia (Acute) Vitals/I&O's: Vital Signs Temp Pulse Resp BP Pulse Ox 98.0 F 73 20 H 138/58 H 96 04/10/19 08:49 04/10/19 09:21 04/10/19 08:49 04/10/19 08:49 04/10/19 08:49 Oxygen Flow Rate (L/min) 2 Oxygen Delivery Method Nasal Cannula Weight: 65.6 kg Body Mass Index (BMI) 24.0 Finger Stick Blood Glucose 200 Intake and Output for Last 24 Hours 04/08/19 04/09/19 04/10/19 23:59 23:59 23:59 Intake Total 360 / 360 100 / 100 Output Total 150 / 150 Balance 210 / 210 100 / 100 Laboratory Results 04/09/19 17:08: WBC 10.4, RBC 3.14 L, Hgb 9.9 L, Hct 32.1 L, MCV 102.2 H, MCH 31.5, MCHC 30.8 L, RDW 18.1 H, RDW Differential 63.7 H, Plt Count 261, MPV 10.1, Immature Gran % (Auto) 0.200, Neut % (Auto) 76.2 H, Lymph % (Auto) 10.6 L, [place] % (Auto) 7.0, Eos % (Auto) 5.5 H, Baso % (Auto) 0.5, Absolute Neuts (auto) 8.0 H, Absolute Lymphs (auto) 1.10, Total Counted Not Reportable 04/09/19 17:08: Sodium 136, Potassium 3.6, Chloride 96 L, Carbon Dioxide 35.0 H, Anion Gap 5, BUN 16, Creatinine 2.93 H, Estim Creat Clear Calc 22.08, Est GFR (MDRD) Af Amer 28 L, Est GFR (MDRD) Non-Af 23 L, BUN/Creatinine Ratio 5.5 L, Glucose 111 H, Calcium 8.4 L, Troponin I 0.026 04/09/19 20:40: Troponin I 0.025 04/09/19 21:53: Specimen Type ART, Sample Site R Brachial, pH 7.53 H, Bicarbonate Actual 34.6 H, POC Total CO2 36, Base Excess 12 H, O2 Saturation 97, ABG pCO2 41.7, ABG pO2 83, Clay Test POS, O2 Delivery Device Nasal Can, Liter Flow 2.0, Blood Gas Notified Whom KODY MONTENEGRO, Blood Gas Notified Time 213904/09/19 22:58: Troponin I 0.019 04/10/19 05:13: WBC 5.5, RBC 2.95 L, Hgb 9.2 L, Hct 30.5 L, MCV 103.4 H, MCH 31.2, MCHC 30.2 L, RDW 18.4 H, RDW Differential 64.2 H, Plt Count 218, MPV 10.3, Immature Gran % (Auto) 0.400, Neut % (Auto) 89.1 H, Lymph % (Auto) 9.6 L, [place] % (Auto) 0.7, Eos % (Auto) 0.2, Baso % (Auto) 0.0, Absolute Neuts (auto) 4.9, Absolute Lymphs (auto) 0.53 L, Total Counted Not Reportable, Differential Comment SCANNED, Platelet Estimate ADEQUATE, Polychromasia RARE, Macrocytosis 3+ 04/10/19 05:13: Sodium 135 L, Potassium 3.9, Chloride 94 L, Carbon Dioxide 34.0 H, Anion Gap 7, BUN 31 H, Creatinine 4.19 H, Estim Creat Clear Calc 14.88, Est GFR (MDRD) Af Amer 18 L, Est GFR (MDRD) Non-Af 15 L, BUN/Creatinine Ratio 7.4 L, Glucose 166 H, Calcium 8.7, Total Bilirubin 0.50, AST 14 L, ALT 15 L, Alkaline Phosphatase 96, Total Protein 6.8, Albumin 2.7 L, Globulin 4.1, Albumin/Globulin Ratio 0.7 L Current Medications Acetaminophen (Tylenol) 650 mg PO Q6H PRN PRN PRN Reason: Mild pain (1-3)/Temp > 100.7 F Last Admin: 04/09/19 22:42 Dose: 650 mg Documented by: Albuterol Sulfate (Ventolin Aerosols) 2.5 mg INHALATION Q2H PRN PRN PRN Reason: DYSPNEA/WHEEZING/SOB Last Admin: 04/10/19 00:02 Dose: 2.5 mg Documented by: Albuterol/Ipratropium (Duoneb) 3 ml INHALATION Q4HWA.RT [facility] Last Admin: 04/10/19 10:55 Dose: 3 ml Documented by: Alprazolam (Xanax) 0.5 mg PO TID PRN PRN PRN Reason: ANXIETY Last Admin: 04/09/19 21:10 Dose: 0.5 mg Documented by: Aspirin (Ecotrin) 81 mg PO DAILY@0800 [facility] Last Admin: 04/10/19 08:43 Dose: 81 mg Documented by: Atorvastatin Calcium (Lipitor) 80 mg PO QHS [facility] Last Admin: 04/09/19 21:08 Dose: 80 mg Documented by: Cholecalciferol (Vitamin D) 1,000 unit PO DAILY [facility] Last Admin: 04/10/19 08:43 Dose: 1,000 unit Documented by: Clopidogrel Bisulfate (Plavix) 75 mg PO DAILY [facility] Last Admin: 04/10/19 08:42 Dose: 75 mg Documented by: Cyanocobalamin (Vitamin B12) 2,500 mcg PO DAILY [facility] Last Admin: 04/10/19 08:40 Dose: 2,500 mcg Documented by: Folic Acid (Folic Acid) 0.5 mg PO DAILY@0800 [facility] Last Admin: 04/10/19 08:41 Dose: 0.5 mg Documented by: Guaifenesin (Mucinex) 600 mg PO BID [facility] Last Admin: 04/10/19 08:42 Dose: 600 mg Documented by: Heparin Sodium (Porcine) (Heparin Na) 5,000 unit SC Q12 [facility] Last Admin: 04/10/19 08:37 Dose: Not Given Documented by: Methylprednisolone (Solu-Medrol) 40 mg IV Q8 [facility] Stop: 04/10/19 22:01 Last Admin: 04/10/19 06:11 Dose: 40 mg Documented by: Metoprolol Succinate (Toprol Xl (Beta Kadi)) 100 mg PO BID [facility] Last Admin: 04/10/19 08:42 Dose: 100 mg Documented by: Multivit/Ca Carb/B Cmplx/FA/Prenat (Nephrocaps, Renaphro) 1 capsule PO DAILY [facility] Last Admin: 04/10/19 08:42 Dose: 1 capsule Documented by: Snrty-9-Mned Ethyl Esters (Lovaza) 1 gm PO BID [facility] Last Admin: 04/10/19 08:40 Dose: 1 gm Documented by: Pantoprazole Sodium (Protonix) 20 mg PO BID [facility] Last Admin: 04/10/19 08:39 Dose: 20 mg Documented by: Sodium Chloride () 5 - 15 ml IV UD PRN PRN Reason: SALINE FLUSH Last Admin: 04/10/19 06:10 Dose: 10 ml Documented by: Tamsulosin HCl (Flomax) 0.8 mg PO DAILY [facility] Last Admin: 04/10/19 08:43 Dose: 0.8 mg Documented by: Medical Necessity - Tobacco Use Smoking Status: Light Smoker (<10/day) Tobacco Use: Cigarettes Assessment/Plan All Active Problems (Last Reviewed 04/09/19 @ 19:30 by Chris Stark DO) COPD exacerbation (Acute) Acute respiratory failure with hypoxia (Acute)
--- NOTE | 2019-04-10 12:16 | NURSING ---
Ileostomy appliance changed per pt request. peristomal skin intact. stoma is well budded and pink. cleansed skin with warm water. pat dry. applied a 2 piece convex Padmini appliance that brought in for patient. no further needs voiced at this time. pt aware to call for needs.
--- NOTE | 2019-04-10 13:33 | CON.PCM_ITS ---
Problem List (1) Acute respiratory failure with hypoxia Status: Acute (2) ESRD (end stage renal disease) Status: Chronic (3) History of non-ST elevation myocardial infarction (NSTEMI) Status: Chronic (4) Stented coronary artery Status: Chronic Comment: 2003, JASON to circumflex ; 10/13/2009 tsfer from [facility] to [facility], total of 5 bare metal stents to RCA per Dr. Barrientos @ [facility]: 3.5 X 18 Electronic Warfare Operator, followed distally by 3.0 X12 Electronic Warfare Operator to distal RCA;3.5 X 15 Electronic Warfare Operator, followed proximally by 4.0 X 18 Electronic Warfare Operator to Mid RCA; 4.0 X 18 Electronic Warfare Operator to Proximal RCA (5) S/P CABG x 3 Status: Chronic Comment: [facility] per Dr. Osito Hernandez: NICHOLAS to LAD, reverse SVG to OMbranch of CX, reverse SVG to PDA of RCA. PDA endarterectomy. (6) Status post peripheral artery angioplasty with insertion of stent Status: Chronic Comment: Right common iliac, [facility] (7) Atherosclerotic heart disease of [place] coronary artery without angina pectoris Status: Chronic Comment: 2003, JASON to circumflex ; 10/10/2009 tsfer from [facility] to [facility], total of 5 bare metal stents to RCA; CABG X [address] [facility] 01/31/2011 (critical left main and restenosis of RCA stents) (8) Diastolic CHF Status: Chronic Qualifiers: Heart failure chronicity: acute on chronic Qualified Code(s): I50.33 - Acute on chronic diastolic (congestive) heart failure (9) HLD (hyperlipidemia) Status: Chronic Qualifiers: Hyperlipidemia type: unspecified (10) HTN (hypertension) Status: Chronic Qualifiers: Hypertension type: essential hypertension (11) PAD (peripheral artery disease) Status: Chronic (12) COPD (chronic obstructive pulmonary disease) Status: Chronic Qualifiers: COPD type: unspecified COPD (13) Tobacco dependence Status: Chronic (14) Anemia Status: Chronic Qualifiers: Anemia type: unspecified type Qualified Code(s): D64.9 - Anemia, unspecified (15) BPH (benign prostatic hyperplasia) Status: Chronic Qualifiers: Lower urinary tract symptom presence: unspecified whether lower urinary tract symptoms present Reason for Consult Date of Consultation: 04/10/19 Reason for Consultation: Reported COPD exacerbation History of Present Illness: The patient is a 68 year old M, with past medical history listed below and known to me from previous admissions, who presented to [facility] on 04/09/2019 with progressive shortness of breath. Patient reports he has had progressive shortness of breath over the last 2 to 3 weeks, but during dialysis he started to have progressive shortness of breath. Patient states that he has had a cough for approximately a week bringing up clear sputum. Patient does have supplemental oxygen at home, but typically only uses it with sleep. In the emergency room, patient was noted to have wheezing bilaterally with retractions. Patient was saturating 84% on room air. Patient was in A. fib with RVR with a rate of 113 bpm. CBC was unremarkable and troponin was 0.026. Patient was given aerosol therapy and initiated on BiPAP. Chest x-rays were unremarkable. Patient was admitted to the hospital with reported COPD exacerbation. Patient reports that he recently ran out of 5 mg of prednisone. Patient had seen Dr. Quesada in the past and this has been continued for quite some time. Patient has been lost to follow-up in our office following a recent hospitalization and did not have prednisone available. Patient does state that he was evaluated by Dr. Henderson for possible GI bleed. There was some concern for gastritis secondary to the prednisone therapy. Patient also has a colostomy and has noted intermittent darker stools. Patient stopped short of calling the black. Patient reports she is been compliant with restricted diet. Patient does have an extensive cardiac history, but denies any diaphoresis, chest pain, nausea or vomiting. Upon further questioning, patient states his breathing has been going downhill for months. Patient does state he is received intermittent transfusions, which help his respiratory status. Patient does have DuoNeb therapy at home that he uses 2-3 times per day. Patient is not on budesonide at home. This morning, patient feels subjectively almost back to his baseline. Patient states he is still coughing, but producing only clear to white sputum. Patient has been weaned to 2 L nasal cannula is currently saturating 100%. Review of systems otherwise negative x10 systems Past Medical History Past Medical History (Chronic Problems): Chronic Problems (Last Reviewed 04/09/19 @ 19:30 by Chris Stark DO) ESRD (end stage renal disease) (Chronic) History of non-ST elevation myocardial infarction (NSTEMI) (Chronic 01/21/11) Stented coronary artery (Chronic) 2003, JASON to circumflex ; 10/13/2009 tsfer from [facility] to [facility], total of 5 bare metal stents to RCA per Dr. Barrientos @ [facility]: 3.5 X 18 Electronic Warfare Operator, followed distally by 3.0 X12 Electronic Warfare Operator to distal RCA;3.5 X 15 Electronic Warfare Operator, followed proximally by 4.0 X 18 Electronic Warfare Operator to Mid RCA; 4.0 X 18 Electronic Warfare Operator to Proximal RCA S/P CABG x 3 (Chronic 01/26/11) [facility] per Dr. Osito Hernandez: NICHOLAS to LAD, reverse SVG to OMbranch of CX, reverse SVG to PDA of RCA. PDA endarterectomy. Status post peripheral artery angioplasty with insertion of stent (Chronic ~2010) Right common iliac, [facility] Atherosclerotic heart disease of [place] coronary artery without angina pectoris (Chronic) 2003, JASON to circumflex ; 10/10/2009 tsfer from [facility] to [facility], total of 5 bare metal stents to RCA; CABG X [address] [facility] 01/31/2011 (critical left main and restenosis of RCA stents) Diastolic CHF (Chronic) HLD (hyperlipidemia) (Chronic) HTN (hypertension) (Chronic) PAD (peripheral artery disease) (Chronic) COPD (chronic obstructive pulmonary disease) (Chronic) Tobacco dependence (Chronic) Anemia (Chronic) BPH (benign prostatic hyperplasia) (Chronic) Medical History: Medical History (Last Reviewed 04/09/19 @ 19:30 by Chris Stark DO) History of non-ST elevation myocardial infarction (NSTEMI) (Chronic) Onset Date: 01/21/11 I25.2 Atherosclerotic heart disease of [place] coronary artery without angina pectoris (Chronic) I25.10 2003, JASON to circumflex ; 10/10/2009 tsfer from [facility] to [facility], total of 5 bare metal stents to RCA; CABG X [address] [facility] 01/31/2011 (critical left main and restenosis of RCA stents) Diastolic CHF (Chronic) I50.30 HLD (hyperlipidemia) (Chronic) E78.5 HTN (hypertension) (Chronic) I10 PAD (peripheral artery disease) (Chronic) I73.9 COPD (chronic obstructive pulmonary disease) (Chronic) J44.9 Tobacco dependence (Chronic) F17.200 Anemia (Chronic) D64.9 BPH (benign prostatic hyperplasia) (Chronic) N40.0 Allergies irbesartan [From Avapro] Allergy (Severe, Verified 04/09/19 16:52) Blisters zolpidem [From Ambien] Adverse Reaction (Severe, Verified 04/09/19 16:52) made me go crazy, memory loss amoxicillin Adverse Reaction (Intermediate, Verified 04/09/19 16:52) Other TOLERATES ZOSYN PASSES BLOOD IN STOOL metronidazole [From Flagyl] Adverse Reaction (Verified 04/09/19 16:52) Other pt states he got palpitations and nose bleed. Home Medications: Ambulatory Orders Medication Instructions Recorded Albuterol Sulfate 2.5 mg IH Q4H PRN 11/13/18 Alprazolam [Xanax] 0.5 mg PO BID 11/13/18 Aspirin E.C. [Ecotrin] 81 mg PO DAILY@0800 11/13/18 Tamsulosin HCl [Flomax] 0.8 mg PO DAILY 11/13/18 Metoprolol(XL)Succ [Toprol Xl 100 mg PO BID 12/06/18 (Beta Kadi)] ascorbate calcium (Vitamin C) 500 500 mg PO DAILY 03/02/19 mg tablet clopidogrel 75 mg tablet 75 mg PO DAILY 03/02/19 omega-3 fatty acids 1,000 mg 1,000 mg PO BID 03/02/19 capsule vitamin B complex-vitamin C-folic 1 tab PO DAILY 03/02/19 acid 0.8 mg tablet Cholecalciferol (VIT D3) [Vitamin 1,000 unit PO DAILY 03/26/19 D3] Cyanocobalamin (Vitamin B-12) 2,500 mcg PO DAILY 03/26/19 [Vitamin B12] Folic Acid 0.4 mg PO DAILY 03/26/19 Omeprazole 20 mg PO BID 04/09/19 Rosuvastatin Calcium 40 mg PO QHS 04/09/19 Surgical History: Surgical History (Last Reviewed 04/09/19 @ 19:30 by Chris Stark DO) Stented coronary artery (Chronic) Z95.5 2003, JASON to circumflex ; 10/13/2009 tsfer from [facility] to [facility], total of 5 bare metal stents to RCA per Dr. Barrientos @ [facility]: 3.5 X 18 Electronic Warfare Operator, followed distally by 3.0 X12 Electronic Warfare Operator to distal RCA;3.5 X 15 Electronic Warfare Operator, followed proximally by 4.0 X 18 Electronic Warfare Operator to Mid RCA; 4.0 X 18 Electronic Warfare Operator to Proximal RCA S/P CABG x 3 (Chronic) Onset Date: 01/26/11 Z95.1 [facility] per Dr. Osito Hernandez: NICHOLAS to LAD, reverse SVG to OMbranch of CX, reverse SVG to PDA of RCA. PDA endarterectomy. history of surgically created arteriovenous fistula s/p fistulogram Onset Date: ~09/28/18 Surgical History: coronary bypass surgery, tonsillectomy, - Psychiatric History: No pertinent psych hx Smoking Status: Light Smoker (<10/day) Tobacco Use: Cigarettes - *Family History Maternal Family History: Family History (Last Reviewed 04/09/19 @ 19:31 by Chris Stark DO) Father CAD (coronary artery disease) Hypertension Kidney disease CVA (cerebral vascular accident) Other Cancer History Items: Heart Disease Paternal Family History: Family History (Last Reviewed 04/09/19 @ 19:31 by Chris Stark DO) Father CAD (coronary artery disease) Hypertension Kidney disease CVA (cerebral vascular accident) Other Cancer History Items: Heart Disease, Hypertension, Renal Disease Review of Systems Comment: See HPI Patient Problems: Active and Suspected Problems (Last Reviewed 04/09/19 @ 19:30 by Chris Stark DO) COPD exacerbation (Acute) Acute respiratory failure with hypoxia (Acute) - Physical Exam General: Alert, Oriented x3, Cooperative, No apparent distress, - - No conversational dyspnea. Appears older than stated age. HEENT: Atraumatic, PERRLA, EOMI, Normocephalic, - - Scleral injection without icterus Oral: Moist Mucosa, No Gingival or Mucosal Lesions/ Ulcerations Neck: Supple, No JVD, No Nodes, Trachea Midline Lungs: No rhonchi, No rales, Diminished, Wheezes - Scattered end exhalation Cardiovascular: Normal S1, Normal S2, Irregular Rate, Murmur - 2 out of 6 systolic ejection murmur at the right sternal border, No rub noted, No Gallop Abdomen: Bowel Sounds Present, Soft, Non Tender, Non-Distended, - - Ostomy bag noted. Clean, dry and intact. Brown stool noted Extremities: No cyanosis, Clubbing, Edema Skin: No rashes Musculoskeletal: No Tenderness to Palpation of Joints or Extremities Lymphatic: No Cervical, Supraclavicular, or Inguinal Adenopathy Neurological: Cranial nerves II-XII grossly intact, Neuro grossly intact, Motor Exam 5/5 strength throughout Psych/Mental Status: Alert and oriented to time, place, person, mood and affect Vital Signs Temp Pulse Resp BP Pulse Ox 36.9 C 79 20 H 144/61 H 100 04/10/19 12:01 04/10/19 12:10 04/10/19 12:01 04/10/19 12:01 04/10/19 12:01 Oxygen Flow Rate (L/min) 2 Oxygen Delivery Method Nasal Cannula Weight: 65.6 kg Body Mass Index (BMI) 24.0 Finger Stick Blood Glucose 200 Intake and Output for Last 24 Hours 04/08/19 04/09/19 04/10/19 23:59 23:59 23:59 Intake Total 360 / 360 100 / 100 Output Total 150 / 150 Balance 210 / 210 100 / 100 Laboratory Tests Past 24 Hrs 04/09/19 04/09/19 04/09/19 17:08 17:08 20:40 WBC 10.4 RBC 3.14 L Hgb 9.9 L Hct 32.1 L MCV 102.2 H MCH 31.5 MCHC 30.8 L RDW 18.1 H RDW Differential 63.7 H Plt Count 261 MPV 10.1 Immature Gran % (Auto) 0.200 Neut % (Auto) 76.2 H Lymph % (Auto) 10.6 L [place] % (Auto) 7.0 Eos % (Auto) 5.5 H Baso % (Auto) 0.5 Absolute Neuts (auto) 8.0 H Absolute Lymphs (auto) 1.10 Total Counted Not Reportable Differential Comment Platelet Estimate Polychromasia Macrocytosis Specimen Type Sample Site pH Bicarbonate Actual POC Total CO2 Base Excess O2 Saturation ABG pCO2 ABG pO2 Clay Test O2 Delivery Device Liter Flow Blood Gas Notified Whom Blood Gas Notified Time Sodium 136 Potassium 3.6 Chloride 96 L Carbon Dioxide 35.0 H Anion Gap 5 BUN 16 Creatinine 2.93 H Estim Creat Clear Calc 22.08 Est GFR (MDRD) Af Amer 28 L Est GFR (MDRD) Non-Af 23 L BUN/Creatinine Ratio 5.5 L Glucose 111 H Calcium 8.4 L Total Bilirubin AST ALT Alkaline Phosphatase Troponin I 0.026 0.025 Total Protein Albumin Globulin Albumin/Globulin Ratio 04/09/19 04/09/19 04/10/19 21:53 22:58 05:13 WBC 5.5 RBC 2.95 L Hgb 9.2 L Hct 30.5 L MCV 103.4 H MCH 31.2 MCHC 30.2 L RDW 18.4 H RDW Differential 64.2 H Plt Count 218 MPV 10.3 Immature Gran % (Auto) 0.400 Neut % (Auto) 89.1 H Lymph % (Auto) 9.6 L [place] % (Auto) 0.7 Eos % (Auto) 0.2 Baso % (Auto) 0.0 Absolute Neuts (auto) 4.9 Absolute Lymphs (auto) 0.53 L Total Counted Not Reportable Differential Comment SCANNED Platelet Estimate ADEQUATE Polychromasia RARE Macrocytosis 3+ Specimen Type ART Sample Site R Brachial pH 7.53 H Bicarbonate Actual 34.6 H POC Total CO2 36 Base Excess 12 H O2 Saturation 97 ABG pCO2 41.7 ABG pO2 83 Clay Test POS O2 Delivery Device Nasal Can Liter Flow 2.0 Blood Gas Notified Whom [facility] Blood Gas Notified Time 2140 Sodium Potassium Chloride Carbon Dioxide Anion Gap BUN Creatinine Estim Creat Clear Calc Est GFR (MDRD) Af Amer Est GFR (MDRD) Non-Af BUN/Creatinine Ratio Glucose Calcium Total Bilirubin AST ALT Alkaline Phosphatase Troponin I 0.019 Total Protein Albumin Globulin Albumin/Globulin Ratio 04/10/19 05:13 WBC RBC Hgb Hct MCV MCH MCHC RDW RDW Differential Plt Count MPV Immature Gran % (Auto) Neut % (Auto) Lymph % (Auto) [place] % (Auto) Eos % (Auto) Baso % (Auto) Absolute Neuts (auto) Absolute Lymphs (auto) Total Counted Differential Comment Platelet Estimate Polychromasia Macrocytosis Specimen Type Sample Site pH Bicarbonate Actual POC Total CO2 Base Excess O2 Saturation ABG pCO2 ABG pO2 Clay Test O2 Delivery Device Liter Flow Blood Gas Notified Whom Blood Gas Notified Time Sodium 135 L Potassium 3.9 Chloride 94 L Carbon Dioxide 34.0 H Anion Gap 7 BUN 31 H Creatinine 4.19 H Estim Creat Clear Calc 14.88 Est GFR (MDRD) Af Amer 18 L Est GFR (MDRD) Non-Af 15 L BUN/Creatinine Ratio 7.4 L Glucose 166 H Calcium 8.7 Total Bilirubin 0.50 AST 14 L ALT 15 L Alkaline Phosphatase 96 Troponin I Total Protein 6.8 Albumin 2.7 L Globulin 4.1 Albumin/Globulin Ratio 0.7 L Clinical Impression(s) from Imaging Studies Chest X-Ray 04/09/19 17:18 IMPRESSION: No acute thoracic pathology. Mild bilateral costophrenic angle scarring versus trace effusions. Electronically Signed: Pb Guadalupe, at 17:34 EDT Tel , Service support , Assessment/Plan All Active Problems (Last Reviewed 04/09/19 @ 19:30 by Chris Stark DO) COPD exacerbation (Acute) Acute respiratory failure with hypoxia (Acute) RECOMMENDATIONS: 1. Okay to continue steroids, bronchodilators and supplemental oxygen 2. Wean off supplemental oxygen, if possible 3. Reasonable to hold off on antibiotics from my perspective 4. Walking oximetry prior to discharge 5. Add Pulmicort therapy once off steroids IMPRESSIONS: 1. Acute hypoxic respiratory failure Exact etiology is unclear at this time. Patient did respond well to BiPAP therapy and has been on steroids for 24 hours. However, rapid improvement, lack of leukocytosis or change in sputum is not consistent with a COPD exacerbation. Other possible etiology would include acute diastolic congestive heart failure. Patient is not receiving 5 mg of prednisone daily, so may be having an element of adrenal insufficiency. Patient is already received Solu-Medrol, so cortisone level would not be accurate. Patient has missed 3 outpatient scheduled appointments to establish care here in [place]. Patient should have a walking oximetry prior to discharge. 2. End-stage renal disease Patient had hemodialysis yesterday with some improvement in overall condition. Patient reportedly has been following a low-salt diet. Defer to nephrology. 3. Chronic diastolic congestive heart failure/coronary artery disease/peripheral artery disease Complicates clinical picture. Patient does not have stigmata of acute ischemic event at this time. Unclear if echocardiogram would be helpful given rapid improvement. Okay to resume home medications from my perspective 4. Recent embolic ischemic colitis/hypertension/hyperlipidemia/anemia of chronic disease/history of noncompliance Complicates care, management, recovery and prognosis. Ileostomy appears to be functioning well. No significant melena appreciated. Patient has been seen by Dr. Henderson in the past. Code Visit Inpatient E&M: 76754 Init Hosp L3
--- NOTE | 2019-04-10 15:00 | DCINST_ITS ---
- Discharge Diagnoses Current Active Problems: Current Active and Chronic Problems (Last Reviewed 04/09/19 @ 19:30 by Chris Stark DO) COPD exacerbation (Acute) Acute respiratory failure with hypoxia (Acute) Reason(s) for Visit for Discharge Instructions: Shortness of breath You will use the following diet at home:: Renal (restricted protein/sodium) Your food should be the consistency of: Regular Your liquids should be the consistency of: Regular/Thin Discharge Activity: Return to Normal Activity Additional Instructions: Continue to use your oxygen at night. You need to follow-up with shot core drill operator in the outpatient. You should follow-up with Dr. Henderson's office as soon as possible to set up for capsule endoscopy especially when you noticed adrian stools. You should follow-up with dialysis as scheduled Allergies/Adverse Reactions: Allergies irbesartan [From Avapro] Allergy (Severe, Verified 04/09/19 16:52) Blisters zolpidem [From Ambien] Adverse Reaction (Severe, Verified 04/09/19 16:52) made me go crazy, memory loss amoxicillin Adverse Reaction (Intermediate, Verified 04/09/19 16:52) Other TOLERATES ZOSYN PASSES BLOOD IN STOOL metronidazole [From Flagyl] Adverse Reaction (Verified 04/09/19 16:52) Other pt states he got palpitations and nose bleed. Medications to take at Discharge Albuterol Sulfate 2.5 mg IH Q4H PRN 11/13/18 Alprazolam [Xanax] 0.5 mg PO BID 11/13/18 Aspirin E.C. [Ecotrin] 81 mg PO DAILY@0800 11/13/18 Tamsulosin HCl [Flomax] 0.8 mg PO DAILY 11/13/18 Metoprolol(XL)Succ [Toprol Xl (Beta Kadi)] 100 mg PO BID 12/06/18 ascorbate calcium (Vitamin C) 500 mg tablet 500 mg PO DAILY 03/02/19 clopidogrel 75 mg tablet 75 mg PO DAILY 03/02/19 omega-3 fatty acids 1,000 mg capsule 1,000 mg PO BID 03/02/19 vitamin B complex-vitamin C-folic acid 0.8 mg tablet 1 tab PO DAILY 03/02/19 Cholecalciferol (VIT D3) [Vitamin D3] 1,000 unit PO DAILY 03/26/19 Cyanocobalamin (Vitamin B-12) [Vitamin B12] 2,500 mcg PO DAILY 03/26/19 Folic Acid 0.4 mg PO DAILY 03/26/19 Omeprazole 20 mg PO BID 04/09/19 Rosuvastatin Calcium 40 mg PO QHS 04/09/19 Ensure Clear 120 ml PO 4X/DAY #120 liquid 04/10/19 Guaifenesin [Mucinex] 600 mg PO BID 5 Days #10 tab 04/10/19 Prednisone See Taper PO DAILY 40 Days #30 tab 04/10/19 The following prescriptions were given: Ensure Clear 120 ml PO 4X/DAY #120 liquid Transmission Status: Received by [id number] Guaifenesin [Mucinex] 600 mg PO BID 5 Days #10 tab Transmission Status: Received by [id number] Prednisone See Taper PO DAILY 40 Days #30 tab Transmission Status: Received by [id number] Primary Care Physician: Tania Berger NP-C [Primary Care Provider] - Please follow up with your Primary Care Physician in: within 1-2 weeks Test Results: Test results from this visit will be discussed in further detail at your follow- up appointment, if applicable. Please Follow Up With: Elie Caicedo MD When: within 2 weeks Please Follow Up With: Armen Henderson MD When: within 2 weeks Proposed Discharge Date: 04/10/19
--- NOTE | 2019-04-10 15:16 | DS.PCM_ITS ---
Discharge Date and Diagnosis Date of Admission: 04/09/19 Date of Discharge: 04/10/19 - Primary Discharge Diagnosis Active and Suspected Problems (Last Reviewed 04/09/19 @ 19:30 by Chris Stark DO) Acute respiratory failure with hypoxia (Acute) Probable acute COPD exacerbation - Secondary Discharge Diagnosis Chronic Problems (Last Reviewed 04/09/19 @ 19:30 by Chris Stark DO) ESRD (end stage renal disease) (Chronic) History of non-ST elevation myocardial infarction (NSTEMI) (Chronic 01/21/11) Stented coronary artery (Chronic) 2003, JASON to circumflex ; 10/13/2009 tsfer from [facility] to [facility], total of 5 bare metal st[facility] 3.5 X 18 [employer], followed distally by 3.0 X12 [employer] to distal RCA;3.5 X 15 [employer], followed proximally by 4.0 X 18 [employer] to Mid RCA; 4.0 X 18 [employer] to Proximal RCA S/P CABG x 3 (Chronic 01/26/11) [facility] per Dr. Osito Hernandez: NICHOLAS to LAD, reverse SVG to OMbranch of CX, reverse SVG to PDA of RCA. PDA endarterectomy. 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, JASON to circumflex ; 10/10/2009 tsfer from [facility] to [facility], total of 5 bare metal stents to RCA; CABG X 3 vessels @ [facility] 01/31/2011 (critical left main and restenosis of RCA stents) Diastolic CHF (Chronic) HLD (hyperlipidemia) (Chronic) HTN (hypertension) (Chronic) PAD (peripheral artery disease) (Chronic) COPD (chronic obstructive pulmonary disease) (Chronic) Tobacco dependence (Chronic) Anemia (Chronic) BPH (benign prostatic hyperplasia) (Chronic) Hospital Course and Treatment Imaging Results: Clinical Impression(s) from Imaging Studies Chest X-Ray 04/09/19 17:18 IMPRESSION: No acute thoracic pathology. Mild bilateral costophrenic angle scarring versus trace effusions. 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 He was found to be hypoxic with Spo2 of 84%. He was initially managed on Bipap, IV steroids and breathing treatment.. Patient improved dramatically on this regimen. 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 Patient also stated that he noticed intermittent melena in his ileostomy back. He has not followed up with Dr. Henderson for the capsule endoscopy. He was encouraged to follow-up with Dr. Henderson. Patient was found not to qualify for ambulatory oxygen and was discharged to follow-up with his dialysis as scheduled and primary care doctor. Subjective: On the day of discharge, patient was seen and examined. He was of oxygen. He was ambulated and did not qualify for oxygen. He denied any chest pain or di zziness or shortness of breath. Denied fever or chills or palpitations. He complains of feeling very tired after his dialysis. His confirmed this by saying he is usually wiped out after dialysis. Objective: Physical Exam General: Alert, No apparent distress, - - No respiratory distress. No conversational dyspnea, off oxygen HEENT: Atraumatic, Normocephalic Oral: Moist Mucosa, No Gingival or Mucosal Lesions/ Ulcerations Neck: No Nodes, Thyroid Normal Size and Texture Lungs: No rales, Diminished, Wheezes Cardiovascular: Regular rate Abdomen: Ileostomy, Bowel Sounds Present, Soft, Non Tender, Non-Distended, No Hepato-splenomegaly Extremities: No edema, No Calf Tenderness Skin: No rashes, No breakdown, - - Spider angiomata on the chest. Musculoskeletal: No Tenderness to Palpation of Joints or Extremities, No Muscle Wasting Psych/Mental Status: Normal Affect, Appropriate - Physical Exam Vital Signs Temp Pulse Resp BP Pulse Ox 98.4 F 79 20 H 144/61 H 95 04/10/19 12:01 04/10/19 12:10 04/10/19 12:01 04/10/19 12:01 04/10/19 14:19 Oxygen Flow Rate (L/min) 2 Oxygen Delivery Method Nasal Cannula Weight: 65.6 kg Body Mass Index (BMI) 24.0 Finger Stick Blood Glucose 200 Intake and Output for Last 24 Hours 04/08/19 04/09/19 04/10/19 23:59 23:59 23:59 Intake Total 360 / 360 100 / 100 Output Total 150 / 150 Balance 210 / 210 100 / 100 Laboratory Tests Past 24 Hrs 04/09/19 04/09/19 04/09/19 17:08 17:08 20:40 WBC 10.4 RBC 3.14 L Hgb 9.9 L Hct 32.1 L MCV 102.2 H MCH 31.5 MCHC 30.8 L RDW 18.1 H RDW Differential 63.7 H Plt Count 261 MPV 10.1 Immature Gran % (Auto) 0.200 Neut % (Auto) 76.2 H Lymph % (Auto) 10.6 L [place] % (Auto) 7.0 Eos % (Auto) 5.5 H Baso % (Auto) 0.5 Absolute Neuts (auto) 8.0 H Absolute Lymphs (auto) 1.10 Total Counted Not Reportable Differential Comment Platelet Estimate Polychromasia Macrocytosis Specimen Type Sample Site pH Bicarbonate Actual POC Total CO2 Base Excess O2 Saturation ABG pCO2 ABG pO2 Clay Test O2 Delivery Device Liter Flow Blood Gas Notified Whom Blood Gas Notified Time Sodium 136 Potassium 3.6 Chloride 96 L Carbon Dioxide 35.0 H Anion Gap 5 BUN 16 Creatinine 2.93 H Estim Creat Clear Calc 22.08 Est GFR (MDRD) Af Amer 28 L Est GFR (MDRD) Non-Af 23 L BUN/Creatinine Ratio 5.5 L Glucose 111 H Calcium 8.4 L Total Bilirubin AST ALT Alkaline Phosphatase Troponin I 0.026 0.025 Total Protein Albumin Globulin Albumin/Globulin Ratio 04/09/19 04/09/19 04/10/19 21:53 22:58 05:13 WBC 5.5 RBC 2.95 L Hgb 9.2 L Hct 30.5 L MCV 103.4 H MCH 31.2 MCHC 30.2 L RDW 18.4 H RDW Differential 64.2 H Plt Count 218 MPV 10.3 Immature Gran % (Auto) 0.400 Neut % (Auto) 89.1 H Lymph % (Auto) 9.6 L [place] % (Auto) 0.7 Eos % (Auto) 0.2 Baso % (Auto) 0.0 Absolute Neuts (auto) 4.9 Absolute Lymphs (auto) 0.53 L Total Counted Not Reportable Differential Comment SCANNED Platelet Estimate ADEQUATE Polychromasia RARE Macrocytosis 3+ Specimen Type ART Sample Site R Brachial pH 7.53 H Bicarbonate Actual 34.6 H POC Total CO2 36 Base Excess 12 H O2 Saturation 97 ABG pCO2 41.7 ABG pO2 83 Clay Test POS O2 Delivery Device Nasal Can Liter Flow 2.0 Blood Gas Notified Whom [facility] Blood Gas Notified Time 2140 Sodium Potassium Chloride Carbon Dioxide Anion Gap BUN Creatinine Estim Creat Clear Calc Est GFR (MDRD) Af Amer Est GFR (MDRD) Non-Af BUN/Creatinine Ratio Glucose Calcium Total Bilirubin AST ALT Alkaline Phosphatase Troponin I 0.019 Total Protein Albumin Globulin Albumin/Globulin Ratio 04/10/19 05:13 WBC RBC Hgb Hct MCV MCH MCHC RDW RDW Differential Plt Count MPV Immature Gran % (Auto) Neut % (Auto) Lymph % (Auto) [place] % (Auto) Eos % (Auto) Baso % (Auto) Absolute Neuts (auto) Absolute Lymphs (auto) Total Counted Differential Comment Platelet Estimate Polychromasia Macrocytosis Specimen Type Sample Site pH Bicarbonate Actual POC Total CO2 Base Excess O2 Saturation ABG pCO2 ABG pO2 Clay Test O2 Delivery Device Liter Flow Blood Gas Notified Whom Blood Gas Notified Time Sodium 135 L Potassium 3.9 Chloride 94 L Carbon Dioxide 34.0 H Anion Gap 7 BUN 31 H Creatinine 4.19 H Estim Creat Clear Calc 14.88 Est GFR (MDRD) Af Amer 18 L Est GFR (MDRD) Non-Af 15 L BUN/Creatinine Ratio 7.4 L Glucose 166 H Calcium 8.7 Total Bilirubin 0.50 AST 14 L ALT 15 L Alkaline Phosphatase 96 Troponin I Total Protein 6.8 Albumin 2.7 L Globulin 4.1 Albumin/Globulin Ratio 0.7 L Discharge Diet: Renal Diet Discharge Activity: Return to Normal Activity Home Medications: Medications to take at Discharge Albuterol Sulfate 2.5 mg IH Q4H PRN 11/13/18 Alprazolam [Xanax] 0.5 mg PO BID 11/13/18 Aspirin E.C. [Ecotrin] 81 mg PO DAILY@0800 11/13/18 Tamsulosin HCl [Flomax] 0.8 mg PO DAILY 11/13/18 Metoprolol(XL)Succ [Toprol Xl (Beta Kadi)] 100 mg PO BID 12/06/18 ascorbate calcium (Vitamin C) 500 mg tablet 500 mg PO DAILY 03/02/19 clopidogrel 75 mg tablet 75 mg PO DAILY 03/02/19 omega-3 fatty acids 1,000 mg capsule 1,000 mg PO BID 03/02/19 vitamin B complex-vitamin C-folic acid 0.8 mg tablet 1 tab PO DAILY 03/02/19 Cholecalciferol (VIT D3) [Vitamin D3] 1,000 unit PO DAILY 03/26/19 Cyanocobalamin (Vitamin B-12) [Vitamin B12] 2,500 mcg PO DAILY 03/26/19 Folic Acid 0.4 mg PO DAILY 03/26/19 Omeprazole 20 mg PO BID 04/09/19 Rosuvastatin Calcium 40 mg PO QHS 04/09/19 Ensure Clear 120 ml PO 4X/DAY #120 liquid 04/10/19 Guaifenesin [Mucinex] 600 mg PO BID 5 Days #10 tab 04/10/19 Prednisone See Taper PO DAILY 40 Days #30 tab 04/10/19 Following Prescrptions Were Given to Patient: Ensure Clear 120 ml PO 4X/DAY #120 liquid Transmission Status: Received by [id number] Guaifenesin [Mucinex] 600 mg PO BID 5 Days #10 tab Transmission Status: Received by [id number] Prednisone See Taper PO DAILY 40 Days #30 tab Transmission Status: Received by [id number] Primary Care Physician: Tania Berger NP-C [Primary Care Provider] - Please follow up with your Primary Care Physician in: within 1-2 weeks Please Follow Up With: Elie Caicedo MD When: within 2 weeks Please Follow Up With: Armen Henderson MD When: within 2 weeks Disposition: Home Minutes spent on discharge:: 40 Patient Condition:: Stable Medical Necessity - Tobacco Use Smoking Status: Light Smoker (<10/day) Tobacco Use: Cigarettes Meaningful Use Info Meaningful Use Diagnoses (Choose all that apply): None applicable Code Visit OBSV E&M: 28666 Observation care discharge
--- NOTE | 2019-04-11 15:50 | CASEMGMT ---
Case Management DC Follow Up Call: DC Date: 04/10/19 DC Diagnosis: COPD Exacerbation, Acute Respiratory Failure with Hypoxia DC Disposition: Home LACE/STRATA: 27/01 Attempted to call patient at listed cell phone number in demographics, no answer and VM with no patient identifier and therefore no VM left. REYES Leggett
== END 2019-04-10 16:02 | disposition home or self-care (01) | DRG 189 ==
LOC: ED 17:20 → PCU 18:48
PROVIDERS: Emergency Provider Emergency Medicine; Family Provider Nurse Practitioner Family; PCP Nurse Practitioner Family; Visit Provider Internal Medicine
DX: J96.01 Acute respiratory failure with hypoxia (principal); N18.6 End stage renal disease; J44.1 Chronic obstructive pulmonary disease with (acute) exacerbation; I50.32 Chronic diastolic (congestive) heart failure; I13.2 Hypertensive heart and chronic kidney disease with heart failure and with stage 5 chronic kidney disease, or end stage renal disease; E78.5 Hyperlipidemia, unspecified; Z99.2 Dependence on renal dialysis; I25.2 Old myocardial infarction; Z95.5 Presence of coronary angioplasty implant and graft; Z95.1 Presence of aortocoronary bypass graft; I73.9 Peripheral vascular disease, unspecified; N40.0 Benign prostatic hyperplasia without lower urinary tract symptoms; Z93.2 Ileostomy status; F17.210 Nicotine dependence, cigarettes, uncomplicated
CPT/HCPCS: 36415; 36600; 71045; 80048; 80053; 82803; 84484; 85025; 93005; 94002; 94003; 94640; 97162; 97802; 99285; 99406; A4216

== ENCOUNTER 2019-05-07 15:48 | Inpatient (IN) | payer MEDICARE, SELFPAY ==
[2019-05-01 08:03] VITALS: BMI 24.7
[2019-05-07] VITALS (11 sets, daily range): BP systolic 126–144; BP diastolic 36–59; PULSE 85–94; RESP 16–24; TEMP 36.8–37.2; O2SAT 95–99; BMI 24.7; BMI 25.4
--- NOTE | 2019-05-07 16:13 | EKG12_ITS ---
Test Reason : Blood Pressure : / mmHG Vent. Rate : 081 BPM Atrial Rate : 076 BPM P-R Int : 000 ms QRS Dur : 098 ms QT Int : 444 ms P-R-T Axes : 000 060 217 degrees QTc Int : 515 ms Normal Sinus Rhythm, First Degree AV Block with Premature supraventricular complexes Left ventricular hypertrophy with repolarization abnormality Prolonged QT Abnormal ECG Confirmed by VIKY MONTENEGRO, JOS ([id number]), news copy editor PATSY LINN ([id number]) on 05/09/2019 1:35:46 PM Referred By: Victor M Boyd Confirmed By:JOS SALMON MD
[2019-05-07 16:29] LABS: Absolute Lymphocyte Count 0.79 X10^3/uL (0.83-4.51); Basophil# 0.02 X10^3/uL; Basophil% 0.2 % (0-1); Eosinophil# 0.17 X10^3/uL; Eosinophils% 1.7 % (0-5); Hematocrit 22.4 % (40-54); Hemoglobin 7.1 g/dL (13.0-16.5); Lymphocyte # 0.79 X10^3/ul (4.0); Lymphocyte % 8.1 % (19-41); Mean Corp Hgb Conc 31.7 g/dL (32-36); Mean Corpuscular Hgb 31.1 pg (27.0-32.0); Mean Corpuscular Volume 98.2 fL (80-94); Mean Platelet Vol. 10.8 fl (6.2-12.0); Monocyte# 0.58 X10^3/uL; Monocyte% 5.9 % (0-10); NRBC Flagged by Analyzer 0 % (0-5); Neutrophil # 8.18 X10^3/uL (2.7-7.7); Neutrophil % 83.6 % (47-70); POSITIVE MORPHOLOGY YES; Platelet Count 265 K/mm3 (150-450); RBC Distribution Width CV 18.4 % (11.6-14.6); RBC Distribution Width SD 65.4 fl (35.1-43.9); Red Blood Count 2.28 M/mm3 (4.6-6.2); White Blood Count 9.8 K/mm3 (4.4-11.0)
[2019-05-07 16:32] LABS: Partial Thromboplast Time 32.8 Seconds (24.1-36.2)
[2019-05-07 16:39] LABS: Differential Indicated SCAN CRITERIA MET
[2019-05-07 16:50] LABS: AST(SGOT) 39 U/L (15-37); Alanine Aminotransfer ALT/SGPT 21 U/L (16-61); Alkaline Phosphatase 108 U/L (45-117); Anion Gap 8 (5-15); BUN 69 mg/dL (7-18); BUN/Creat Ratio 13.5 RATIO (10-20); Bilirubin, Direct 0.15 mg/dL (0.00-0.30); Calcium,Total 9.3 mg/dL (8.5-10.1); Chloride 93 mmol/L (98-107); Creatinine, Serum 5.13 mg/dL (0.70-1.30); EST Glomerular Filtration Rate 12 mL/min (>60); Est Glom Filt Rate - Afr Amer 15 mL/min (>60); Estimated Creatinine Clearance 12.15 ml/min; Globulin 4.2 g/dL (2.2-4.2); Glucose 110 mg/dL (74-106); Lipase 317 U/L (73-393); Potassium 3.7 mmol/L (3.5-5.1); Protein, Total 7.2 g/dL (6.4-8.2); Sodium Level 130 mmol/L (136-145)
[2019-05-07 17:10] LABS: Anisocytosis 1+; Hypochromasia 1+; Macrocytosis 1+; Ovalocyte RARE; Platelet Estimate ADEQUATE (ADEQ); Tear Drop Cell RARE
--- NOTE | 2019-05-07 18:00 | ED.DCSUM_ITS ---
- ER Visit Summary Date of Service: 05/07/19 Chief Complaint: Anemia History of Present Illness: The patient is a 68 M who has an extensive medical history including congestive heart failure, end-stage renal disease on dialysis, chronic anemia. He has had a end ileostomy. He was admitted at the beginning of March with a hemoglobin of 5.4. Was felt to be secondary to chronic anemia of disease as well as GI bleed. He had an endoscopy which was negative. Dr. Barroso scoped him. Since going home he has intermittently had blood in his ileostomy bag. He had routine blood done today showed a hemoglobin of 6.4. He was sent here after his dialysis treatment. He states he globally feels fatigued. Physical Examination: Afebrile vital signs are stable. Patient does not appear pale. Heart is regular without murmur. Lung sounds show rhonchi. He is chronically ill-appearing. There is no blood in the ostomy bag. There is a very small amount of stool that is brown in color. Test Results: Hemoglobin 7.1 platelets are 265. BUN 69 creatinine 5.13. Coags negative. EKG sinus at a rate of 81 Emergency Department Course and Treatment: This appears to be acute on chronic anemia probably GI bleed losses superimposed on his chronic anemia of disease. He had an endoscopy last time he was in the hospital with no etiology found. His known coronary artery disease. I spoke with Dr. Bailon from the [facility] our plan is admission. Impression: 1. Acute on chronic anemia 2. GI bleed This note was generated with [employer] dictation software. It may contain incorrect words, spelling, and punctuation that were not noted in review of the chart prior to signing ED Disposition - Plan for ED Patient: Referrals: Tania Berger, ARMEN-C [Primary Care Provider] -
--- NOTE | 2019-05-07 18:58 | PCM.HP.STD ---
History of Present Illness Date of Admission: 05/07/19 Chief Complaint: Generalized weakness and severe anemia. The patient is a 68 year old M with multiple comorbidities as listed above including ESRD on hemodialysis, chronic heart failure with preserved EF, coronary artery disease, chronic anemia was sent to ER from dialysis center after hemoglobin was found 6.0 today. Patient last hemoglobin was about 8-week ago. His baseline hemoglobin runs around 9 g%. Patient falls generalized weakness and no energy. Patient also said he saw some blood in the ileostomy on the weekend. Currently ileostomy has softer stool but no obvious blood. In ED, H&H noted 7.1/22.4. Hemodynamically stable except respiratory 22-24/min. Patient uses oxygen 2 to 3 L at night secondary to COPD. He is also on chronic prednisone and being prescribed by Dr. Caicedo for COPD. Prior to this, he had intermittent melena and the ileostomy and had EGD done by Dr. Henderson in March 2019 but no obvious source was found and was suggested capsule endoscopy but he did not follow-up. [] Past Medical History Past Medical History (Chronic Problems): Chronic Problems (Last Reviewed 05/01/19 @ 08:23 by Evelyn Thurman NP-Izabel) ESRD (end stage renal disease) (Chronic) History of non-ST elevation myocardial infarction (NSTEMI) (Chronic 01/21/11) Stented coronary artery (Chronic) 2003, JASON to circumflex ; 10/13/2009 tsfer from [facility] to [facility], total of 5 bare metal stents to RCA per Dr. Barrientos @ [facility]: 3.5 X 18 Molded Goods Operator, followed distally by 3.0 X12 Molded Goods Operator to distal RCA;3.5 X 15 Molded Goods Operator, followed proximally by 4.0 X 18 Molded Goods Operator to Mid RCA; 4.0 X 18 Molded Goods Operator to Proximal RCA S/P CABG x 3 (Chronic 01/26/11) [facility] per Dr. Osito Hernandez: NICHOLAS to LAD, reverse SVG to OMbranch of CX, reverse SVG to PDA of RCA. PDA endarterectomy. Status post peripheral artery angioplasty with insertion of stent (Chronic ~2010) Right common iliac, [facility] Atherosclerotic heart disease of elim ira coronary artery without angina pectoris (Chronic) 2003, JASON to circumflex ; 10/10/2009 tsfer from [facility] to [facility], total of 5 bare metal stents to RCA; CABG X 3 vessels @ [facility] 01/31/2011 (critical left main and restenosis of RCA stents) Diastolic CHF (Chronic) HLD (hyperlipidemia) (Chronic) HTN (hypertension) (Chronic) PAD (peripheral artery disease) (Chronic) COPD (chronic obstructive pulmonary disease) (Chronic) Tobacco dependence (Chronic) Anemia (Chronic) BPH (benign prostatic hyperplasia) (Chronic) Medical History: Medical History (Last Reviewed 05/01/19 @ 08:23 by Evelyn Thurman NP-C) COPD exacerbation (Acute) J44.1 Acute respiratory failure with hypoxia (Acute) J96.01 ESRD (end stage renal disease) (Chronic) N18.6 History of non-ST elevation myocardial infarction (NSTEMI) (Chronic) Onset Date: 01/21/11 I25.2 Atherosclerotic heart disease of elim ira coronary artery without angina pectoris (Chronic) I25.10 2003, JASON to circumflex ; 10/10/2009 tsfer from [facility] to [facility], total of 5 bare metal stents to RCA; CABG X 3 vessels @ [facility] 01/31/2011 (critical left main and restenosis of RCA stents) Diastolic CHF (Chronic) I50.30 HLD (hyperlipidemia) (Chronic) E78.5 HTN (hypertension) (Chronic) I10 PAD (peripheral artery disease) (Chronic) I73.9 COPD (chronic obstructive pulmonary disease) (Chronic) J44.9 Tobacco dependence (Chronic) F17.200 Anemia (Chronic) D64.9 BPH (benign prostatic hyperplasia) (Chronic) N40.0 Allergies irbesartan [From Avapro] Allergy (Severe, Verified 05/01/19 08:04) Blisters zolpidem [From Ambien] Adverse Reaction (Severe, Verified 05/01/19 08:04) made me go crazy, memory loss amoxicillin Adverse Reaction (Intermediate, Verified 05/01/19 08:04) Other TOLERATES ZOSYN PASSES BLOOD IN STOOL metronidazole [From Flagyl] Adverse Reaction (Verified 05/01/19 08:04) Other pt states he got palpitations and nose bleed. Home Medications: Ambulatory Orders Medication Instructions Recorded Albuterol Sulfate 2.5 mg IH Q4H PRN 11/13/18 Alprazolam [Xanax] 0.5 mg PO BID 11/13/18 Aspirin E.C. [Ecotrin] 81 mg PO DAILY@0800 11/13/18 Tamsulosin HCl [Flomax] 0.8 mg PO DAILY 11/13/18 Metoprolol(XL)Succ [Toprol Xl 100 mg PO BID 12/06/18 (Beta Kadi)] ascorbate calcium (vitamin C) 500 500 mg PO DAILY 03/02/19 mg tablet clopidogrel 75 mg tablet 75 mg PO DAILY 03/02/19 omega-3 fatty acids 1,000 mg 1,000 mg PO BID 03/02/19 capsule vitamin B complex-vitamin C-folic 1 tab PO DAILY 03/02/19 acid 0.8 mg tablet Cholecalciferol (VIT D3) [Vitamin 1,000 unit PO DAILY 03/26/19 D3] Cyanocobalamin (Vitamin B-12) 2,500 mcg PO DAILY 03/26/19 [Vitamin B12] Folic Acid 0.4 mg PO DAILY 03/26/19 Omeprazole 20 mg PO BID 04/09/19 Rosuvastatin Calcium 40 mg PO QHS 04/09/19 Ensure Clear 120 ml PO 4X/DAY #120 liquid 04/10/19 Surgical History: Surgical History (Last Reviewed 05/01/19 @ 08:23 by Evelyn Thurman, ARMEN-Izabel) Stented coronary artery (Chronic) Z95.5 2003, JASON to circumflex ; 10/13/2009 tsfer from [facility] to [facility], total of 5 bare metal stents to RCA per Dr. Barrientos @ [facility]: 3.5 X 18 Molded Goods Operator, followed distally by 3.0 X12 Molded Goods Operator to distal RCA;3.5 X 15 Molded Goods Operator, followed proximally by 4.0 X 18 Molded Goods Operator to Mid RCA; 4.0 X 18 Molded Goods Operator to Proximal RCA S/P CABG x 3 (Chronic) Onset Date: 01/26/11 Z95.1 [facility] per Dr. Osito Hernandez: NICHOLAS to LAD, reverse SVG to OMbranch of CX, reverse SVG to PDA of RCA. PDA endarterectomy. Status post peripheral artery angioplasty with insertion of stent (Chronic) Onset Date: ~2010 Z95.820 Right common iliac, [facility] history of surgically created arteriovenous fistula s/p fistulogram Onset Date: ~09/28/18 Surgical History: coronary bypass surgery, tonsillectomy, - Psychiatric History: No pertinent psych hx Smoking Status: Current every day smoker - *Family History Maternal Family History: Family History (Last Reviewed 05/01/19 @ 08:23 by SEUN Flowers) Father CAD (coronary artery disease) Hypertension Kidney disease CVA (cerebral vascular accident) Other Cancer History Items: Heart Disease Paternal Family History: Family History (Last Reviewed 05/01/19 @ 08:23 by SEUN Flowers) Father CAD (coronary artery disease) Hypertension Kidney disease CVA (cerebral vascular accident) Other Cancer History Items: Heart Disease, Hypertension, Renal Disease Review of Systems Constitutional: Reports: Malaise, Weakness, Fatigue. Denies: Chills, Fever, Weight Change HEENT: Denies: Head Aches, Sinus Congestion, Sinus Drainage Cardiovascular: Denies: Chest Pain, Palpitations Respiratory: Reports: Cough - Chronic, Shortness of breath upon exertion - Chronic. Denies: Shortness of breath at rest, Sputum production Gastrointestinal: Reports: Hematochezia. Denies: Abdominal Pain, Nausea, Vomiting Genitourinary: Reports: - - Hemodialysis dependent. Denies: Dysuria, Frequency Musculoskeletal: Reports: Joint Pain. Denies: Joint Tenderness Skin: Denies: Rash, Wounds Neurological: Reports: Balance problems, Incoordination. Denies: Focal weakness, Numbness, Tingling Psychiatric: Denies: Anxiety, Depression, Homicidal Ideations, Suicidal Ideations Hematologic/ Lymphatic: Denies: Easy Bruising, Easy Bleeding VTE Information - Inpt Only VTE Present on Admission: No VTE Mechan Device Prophylaxis: SCD's VTE Pharm Prophylaxis ordered?: No Reason prophylaxis not ordered:: Medical Contraindication - Physical Exam General: Alert, Oriented x3, Cooperative HEENT: Atraumatic, PERRLA, EOMI, Normocephalic Neck: Supple, No JVD, Negative Carotid Bruits Lungs: Clear to auscultation, No rhonchi, No wheeze, No rales, Diminished - Air entry is diffusely diminished. Cardiovascular: Regular rate, Regular Rhythm, Normal S1, Normal S2, No murmurs Abdomen: Bowel Sounds Present, Soft, Non Tender, Non-Distended Extremities: No edema, Capillary Refill Less than 3 Seconds Skin: No rashes, No breakdown Musculoskeletal: No Tenderness to Palpation of Joints or Extremities, Arthritic Changes, Muscle Wasting Neurological: Cranial nerves II-XII grossly intact, Deep Tendon Reflexes 2+/4 and Symmetrical, Neuro grossly intact, - - Mild weakness of both lower extremity 4/5. Psych/Mental Status: Normal Affect, Appropriate Vital Signs Temp Pulse Resp BP Pulse Ox 98.2 F 92 16 143/51 H 95 05/07/19 15:49 05/07/19 18:52 05/07/19 18:52 05/07/19 18:52 05/07/19 17:33 Oxygen Delivery Method Room Air Weight: 148 lb 9.465 oz Body Mass Index (BMI) 24.7 Finger Stick Blood Glucose 200 Laboratory Tests Past 24 Hrs 05/07/19 05/07/19 05/07/19 16:00 16:00 16:00 WBC 9.8 RBC 2.28 L Hgb 7.1 L Hct 22.4 L MCV 98.2 H MCH 31.1 MCHC 31.7 L RDW Std Deviation 65.4 H RDW Coeff of Eleni 18.4 H Plt Count 265 MPV 10.8 Immature Gran % (Auto) 0.500 Neut % (Auto) 83.6 H Lymph % (Auto) 8.1 L [place] % (Auto) 5.9 Eos % (Auto) 1.7 Baso % (Auto) 0.2 Absolute Neuts (auto) Not Reportable Absolute Lymphs (auto) 0.79 L Absolute Nucleated RBC 0.00 Nucleated RBC % 0 Platelet Estimate ADEQUATE Hypochromasia 1+ Anisocytosis 1+ Macrocytosis 1+ Tear Drop Cells RARE Ovalocytes RARE PT 13.0 INR 1.0 APTT 32.8 Sodium 130 L Potassium 3.7 Chloride 93 L Carbon Dioxide 29.0 Anion Gap 8 BUN 69 H Creatinine 5.13 H Estim Creat Clear Calc 12.15 Est GFR (MDRD) Af Amer 15 L Est GFR (MDRD) Non-Af 12 L BUN/Creatinine Ratio 13.5 Glucose 110 H Calcium 9.3 Total Bilirubin 0.80 Direct Bilirubin 0.15 AST 39 H ALT 21 Alkaline Phosphatase 108 Total Protein 7.2 Albumin 3.0 L Globulin 4.2 Lipase 317 Blood Type Antibody Screen 05/07/19 16:00 WBC RBC Hgb Hct MCV MCH MCHC RDW Std Deviation RDW Coeff of Eleni Plt Count MPV Immature Gran % (Auto) Neut % (Auto) Lymph % (Auto) [place] % (Auto) Eos % (Auto) Baso % (Auto) Absolute Neuts (auto) Absolute Lymphs (auto) Absolute Nucleated RBC Nucleated RBC % Platelet Estimate Hypochromasia Anisocytosis Macrocytosis Tear Drop Cells Ovalocytes PT INR APTT Sodium Potassium Chloride Carbon Dioxide Anion Gap BUN Creatinine Estim Creat Clear Calc Est GFR (MDRD) Af Amer Est GFR (MDRD) Non-Af BUN/Creatinine Ratio Glucose Calcium Total Bilirubin Direct Bilirubin AST ALT Alkaline Phosphatase Total Protein Albumin Globulin Lipase Blood Type A NEGATIVE Antibody Screen NEGATIVE Assessment/Plan All Active Problems (Last Reviewed 05/01/19 @ 08:23 by Evelyn Thurman, ARMEN-C) RAVEN (obstructive sleep apnea) (Acute) COPD exacerbation (Acute) Acute respiratory failure with hypoxia (Acute) The patient is a 68 year old M with multiple comorbidities as listed above including ESRD on hemodialysis, chronic heart failure with preserved EF, coronary artery disease, chronic anemia was sent to ER from dialysis center after hemoglobin was found 6.0 today. Patient last hemoglobin was about 8-week ago. His baseline hemoglobin runs around 9 g%. Patient falls generalized weakness and no energy. Patient also said he saw some blood in the ileostomy on the weekend. Currently ileostomy has softer stool but no obvious blood. In ED, H&H noted 7.1/22.4. Hemodynamically stable except respiratory 22-24/min. 1. Acute on chronic anemia secondary to presumed GI bleed, iron deficiency anemia/anemia of chronic disease/ESRD: Patient is being admitted on PCU. 2 units of PRBC transfusion ordered one today and another tomorrow. Follow-up posttransfusion H&H. Monitor intake and output. Stool for occult blood ordered. Prior to this, he had intermittent melena and the ileostomy and had EGD done by Dr. Henderson in March 2019 but no obvious source was found and was suggested capsule endoscopy but he did not follow-up. Hold prednisone or other potential medications known to cause GI bleed. 2. Cardio vascular disease: Coronary artery status post stents, triple vessel CABG in January 2011, chronic heart failure with preserved EF, dyslipidemia, peripheral arterial disease and hypertension: Currently, patient denies chest pain, new shortness of breath at rest. He has chronic shortness of breath on exertion secondary to COPD, heart failure and other chronic comorbidities. 3. ESRD on hemodialysis: Patient follows [facility]. Patient might need hemodialysis tomorrow as he is getting blood transfusion. Consult [facility]. 4. COPD with chronic hypoxic respiratory failure on 2 to 3 L oxygen at night and obstructive sleep apnea: Stable. Continue bronchodilator as needed. Continue home inhalers. Patient follows Dr. Caicedo for COPD. 5. Other comorbidities include BPH, low functional capacity and ileostomy: Code Visit OBSV E&M: [id number] Initial observation care L3
[2019-05-07] MEDS: Albuterol 2.5 MG/3 ML VIAL.NEB. INHALATION (20:55)
[2019-05-08] VITALS (27 sets, daily range): BP systolic 119–146; BP diastolic 42–61; PULSE 54–95; RESP 12–22; TEMP 36.6–37.6; O2SAT 92–100
[2019-05-08] MEDS: Ipratropium/Albuterol Sulfate 3 ML AMPUL.NEB INHALATION ×4 (00:10→22:38)
[2019-05-08] MEDS: Acetaminophen 325 MG Tablet 650 MG PO ×2 (01:55→11:56)
[2019-05-08 04:38] LABS: Absolute Lymphocyte Count 0.71 X10^3/uL (0.83-4.51); Absolute Neutrophil Count 5.2 X10^3/uL (2.0-7.7); Basophil# 0.01 X10^3/uL; Basophil% 0.1 % (0-1); Eosinophil# 0.16 X10^3/uL; Eosinophils% 2.3 % (0-5); Hematocrit 20.7 % (40-54); Hemoglobin 6.5 g/dL (13.0-16.5); Lymphocyte # 0.71 X10^3/ul (4.0); Lymphocyte % 10.4 % (19-41); Mean Corp Hgb Conc 31.4 g/dL (32-36); Mean Corpuscular Hgb 31.3 pg (27.0-32.0); Mean Corpuscular Volume 99.5 fL (80-94); Mean Platelet Vol. 9.6 fl (6.2-12.0); Monocyte# 0.69 X10^3/uL; Monocyte% 10.1 % (0-10); NRBC Flagged by Analyzer 0 % (0-5); Neutrophil # 5.23 X10^3/uL (2.7-7.7); Neutrophil % 76.8 % (47-70); Platelet Count 170 K/mm3 (150-450); RBC Distribution Width CV 17.5 % (11.6-14.6); RBC Distribution Width SD 61.7 fl (35.1-43.9); Red Blood Count 2.08 M/mm3 (4.6-6.2); White Blood Count 6.8 K/mm3 (4.4-11.0)
[2019-05-08 04:53] LABS: Anion Gap 10 (5-15); BUN 79 mg/dL (7-18); BUN/Creat Ratio 12.8 RATIO (10-20); Calcium,Total 8.3 mg/dL (8.5-10.1); Chloride 96 mmol/L (98-107); Creatinine, Serum 6.15 mg/dL (0.70-1.30); EST Glomerular Filtration Rate 10 mL/min (>60); Est Glom Filt Rate - Afr Amer 12 mL/min (>60); Estimated Creatinine Clearance 10.14 ml/min; Glucose 91 mg/dL (74-106); Potassium 3.6 mmol/L (3.5-5.1); Sodium Level 133 mmol/L (136-145)
[2019-05-08] MEDS: 0.9% NaCl Peripheral Flush Adult/Peds IV (06:10)
[2019-05-08] MEDS: Tamsulosin HCl 0.4 MG Capsule 0.8 MG PO (09:35)
[2019-05-08] MEDS: Folic Acid/Vitamin B Comp W-C 1 Capsule 1 CAP PO (09:35)
[2019-05-08] MEDS: Pantoprazole Sodium 20 MG Tablet PO ×3 (09:41→21:45)
--- NOTE | 2019-05-08 11:21 | CASEMGMT ---
According to the [facility], the following are in-network tertiary: [facility], [place], [facility], [place], [facility], [facility], [place], [facility], and . Chris ANDRADE CM
--- NOTE | 2019-05-08 11:37 | NURSING ---
Ileostomy appliance changed per pt's request. there was a moderate amount of a dark green watery stool noted in the appliance. no visible blood noted. peristomal skin is intact. stoma is well budded and pink. reapplied a flat 2 piece [place] appliance with an [employer] ring as requested. pt tolerated well. applied a new dry dressing to the mucous fistula left upper quadrant. there was a small amount of thick ramires mucous noted on the old dressing. pt aware to call for further needs during admission.
--- NOTE | 2019-05-08 13:58 | PCM.PN.HOSP ---
Vitals/I&O's: Vital Signs Temp Pulse Resp BP Pulse Ox 98.1 F 76 15 119/53 L 94 05/08/19 12:04 05/08/19 12:04 05/08/19 12:04 05/08/19 12:04 05/08/19 12:04 Oxygen Flow Rate (L/min) 2 Oxygen Delivery Method Nasal Cannula Weight: 69.2 kg Body Mass Index (BMI) 25.4 Finger Stick Blood Glucose 200 Intake and Output for Last 24 Hours 05/06/19 05/07/19 05/08/19 23:59 23:59 23:59 Intake Total 100 / 100 50 / 50 Output Total 0 / 0 Balance 100 / 100 50 / 50 Laboratory Results 05/07/19 16:00: WBC 9.8, RBC 2.28 L, Hgb 7.1 L, Hct 22.4 L, MCV 98.2 H, MCH 31.1, MCHC 31.7 L, RDW Std Deviation 65.4 H, RDW Coeff of Eleni 18.4 H, Plt Count 265, MPV 10.8, Immature Gran % (Auto) 0.500, Neut % (Auto) 83.6 H, Lymph % (Auto) 8.1 L, Leslie % (Auto) 5.9, Eos % (Auto) 1.7, Baso % (Auto) 0.2, Absolute Neuts (auto) Not Reportable, Absolute Lymphs (auto) 0.79 L, Absolute Nucleated RBC 0.00, Nucleated RBC % 0, Platelet Estimate ADEQUATE, Hypochromasia 1+, Anisocytosis 1+, Macrocytosis 1+, Tear Drop Cells RARE, Ovalocytes RARE 05/07/19 16:00: PT 13.0, INR 1.0, APTT 32.8 05/07/19 16:00: Sodium 130 L, Potassium 3.7, Chloride 93 L, Carbon Dioxide 29.0, Anion Gap 8, BUN 69 H, Creatinine 5.13 H, Estim Creat Clear Calc 12.15, Est GFR (MDRD) Af Amer 15 L, Est GFR (MDRD) Non-Af 12 L, BUN/Creatinine Ratio 13.5, Glucose 110 H, Calcium 9.3, Total Bilirubin 0.80, Direct Bilirubin 0.15, AST 39 H, ALT 21, Alkaline Phosphatase 108, Total Protein 7.2, Albumin 3.0 L, Globulin 4.2, Lipase 317 05/07/19 16:00: Blood Type A NEGATIVE, Antibody Screen NEGATIVE 05/07/19 16:00: Crossmatch See Detail 05/08/19 04:32: WBC 6.8, RBC 2.08 L, Hgb 6.5 L, Hct 20.7 L, MCV 99.5 H, MCH 31.3, MCHC 31.4 L, RDW Std Deviation 61.7 H, RDW Coeff of Eleni 17.5 H, Plt Count 170, MPV 9.6, Immature Gran % (Auto) 0.300, Neut % (Auto) 76.8 H, Lymph % (Auto) 10.4 L, Leslie % (Auto) 10.1 H, Eos % (Auto) 2.3, Baso % (Auto) 0.1, Absolute Neuts (auto) 5.2, Absolute Lymphs (auto) 0.71 L, Absolute Nucleated RBC 0.00, Nucleated RBC % 0 05/08/19 04:32: Sodium 133 L, Potassium 3.6, Chloride 96 L, Carbon Dioxide 27.0, Anion Gap 10, BUN 79 H, Creatinine 6.15 H, Estim Creat Clear Calc 10.14, Est GFR (MDRD) Af Amer 12 L, Est GFR (MDRD) Non-Af 10 L, BUN/Creatinine Ratio 12.8, Glucose 91, Calcium 8.3 L Current Medications Acetaminophen (Tylenol) 650 mg PO Q6H PRN PRN PRN Reason: Mild pain 1-3/Temp > 100.7 F Last Admin: 05/08/19 11:56 Dose: 650 mg Documented by: Albuterol Sulfate (Ventolin Aerosols) 2.5 mg INHALATION Q2H PRN PRN PRN Reason: SOB/Wheezing Last Admin: 05/07/19 20:55 Dose: 2.5 mg Documented by: Albuterol Sulfate (Ventolin Aerosols) 2.5 mg INHALATION Q4H PRN PRN PRN Reason: SOB/WHEEZE Albuterol/Ipratropium (Duoneb) 3 ml INHALATION Q4H PRN PRN PRN Reason: SOB &/OR WHEEZING Last Admin: 05/08/19 08:25 Dose: 3 ml Documented by: Alprazolam (Xanax) 1 mg PO TID PRN PRN Reason: ANXIETY Last Admin: 05/08/19 00:00 Dose: 1 mg Documented by: Atorvastatin Calcium (Lipitor) 80 mg PO QHS [facility] Last Admin: 05/08/19 00:00 Dose: 80 mg Documented by: Cholecalciferol (Vitamin D) 1,000 unit PO DAILY [facility] Last Admin: 05/08/19 09:35 Dose: 1,000 unit Documented by: Dextrose (D50w Syringe) 0 gm IV X1 PRN; Protocol PRN Reason: Hypoglycemia Glucagon () 1 mg IM .X1 PRN PRN Reason: Hypoglycemia Morphine Sulfate () 2 mg IV Q3H PRN PRN PRN Reason: Severe Pain (7-10/10) Multivit/Ca Carb/B Cmplx/FA/Prenat (Nephrocaps, Renaphro) 1 capsule PO DAILY [facility] Last Admin: 05/08/19 09:35 Dose: 1 capsule Documented by: Nitroglycerin (Nitrostat) 0.4 mg SUBLINGUAL Q5M PRN PRN Reason: CARDIAC/CHEST PAIN Ondansetron HCl (Zofran) 4 mg IV Q8H PRN PRN PRN Reason: NAUSEA/VOMITING Oxycodone HCl (Oxyir) 5 mg PO Q4H PRN PRN PRN Reason: Moderate Pain (4-6/10) Pantoprazole Sodium (Protonix) 20 mg PO BID [facility] Last Admin: 05/08/19 09:41 Dose: 20 mg Documented by: Senna/Docusate Sodium (Senokot-S, Eveline-Colace) 2 tablet PO BID PRN PRN PRN Reason: Constipation Sodium Chloride () 10 - 40 ml IV UD PRN PRN Reason: SALINE FLUSH Last Admin: 05/08/19 06:10 Dose: 10 ml Documented by: Tamsulosin HCl (Flomax) 0.8 mg PO DAILY [facility] Last Admin: 05/08/19 09:35 Dose: 0.8 mg Documented by: Medical Necessity - Tobacco Use Smoking Status: Current every day smoker Tobacco Use: Cigarettes Assessment/Plan All Active Problems (Last Reviewed 05/01/19 @ 08:23 by Evelyn Thurman NP-C) RAVEN (obstructive sleep apnea) (Acute) COPD exacerbation (Acute) Acute respiratory failure with hypoxia (Acute)
--- NOTE | 2019-05-08 14:31 | CASEMGMT ---
Patient has a Healthcare POA on file at [facility]. He does not have a Healthcare LW. Elaine BARTH MSW
--- NOTE | 2019-05-08 15:20 | PCM.CONS.R ---
Problem List (1) ESRD (end stage renal disease) Status: Chronic Consultation - Renal 05/08/19 PCP/ Referring MD: Requesting physician: Dr Duong Primary care physician: SEUN Poe Reason for Consultation:: ESRD - History of Present Illness History of Present Illness: The patient is a 68 year old M well-known to us. Known history of ESRD on hemodialysis. Was in center hemodialysis and recently switched to home hemodialysis. Generally has done well since then. He has known history of colectomy with ileostomy which was done couple months ago. He continues to have bleeding from the ileostomy pouch over the last few months. Required several blood transfusions. He did have upper GI endoscopy here and this was negative. Routine blood work was drawn and this showed a hemoglobin of less than 7 hence he was referred to the emergency room. Received blood transfusion since yesterday. Currently complains of some shortness of breath. No lower extremity edema. - Allergies Allergies: Allergies irbesartan [From Avapro] Allergy (Severe, Verified 05/01/19 08:04) Blisters zolpidem [From Ambien] Adverse Reaction (Severe, Verified 05/01/19 08:04) made me go crazy, memory loss amoxicillin Adverse Reaction (Intermediate, Verified 05/07/19 19:43) PASSES BLOOD IN STOOL TOLERATES ZOSYN PASSES BLOOD IN STOOL metronidazole [From Flagyl] Adverse Reaction (Verified 05/07/19 19:43) pt states he got palpitations and nose bleed. pt states he got palpitations and nose bleed. - Current Medications Current Medications: Current Medications Acetaminophen (Tylenol) 650 mg PO Q6H PRN PRN PRN Reason: Mild pain 1-3/Temp > 100.7 F Last Admin: 05/08/19 11:56 Dose: 650 mg Documented by: Albuterol Sulfate (Ventolin Aerosols) 2.5 mg INHALATION Q2H PRN PRN PRN Reason: SOB/Wheezing Last Admin: 05/07/19 20:55 Dose: 2.5 mg Documented by: Albuterol Sulfate (Ventolin Aerosols) 2.5 mg INHALATION Q4H PRN PRN PRN Reason: SOB/WHEEZE Albuterol/Ipratropium (Duoneb) 3 ml INHALATION Q4H PRN PRN PRN Reason: SOB &/OR WHEEZING Last Admin: 05/08/19 08:25 Dose: 3 ml Documented by: Alprazolam (Xanax) 1 mg PO TID PRN PRN Reason: ANXIETY Last Admin: 05/08/19 00:00 Dose: 1 mg Documented by: Atorvastatin Calcium (Lipitor) 80 mg PO QHS [facility] Last Admin: 05/08/19 00:00 Dose: 80 mg Documented by: Cholecalciferol (Vitamin D) 1,000 unit PO DAILY [facility] Last Admin: 05/08/19 09:35 Dose: 1,000 unit Documented by: Dextrose (D50w Syringe) 0 gm IV X1 PRN; Protocol PRN Reason: Hypoglycemia Glucagon () 1 mg IM .X1 PRN PRN Reason: Hypoglycemia Morphine Sulfate () 2 mg IV Q3H PRN PRN PRN Reason: Severe Pain (7-10/10) Multivit/Ca Carb/B Cmplx/FA/Prenat (Nephrocaps, Renaphro) 1 capsule PO DAILY [facility] Last Admin: 05/08/19 09:35 Dose: 1 capsule Documented by: Nitroglycerin (Nitrostat) 0.4 mg SUBLINGUAL Q5M PRN PRN Reason: CARDIAC/CHEST PAIN Ondansetron HCl (Zofran) 4 mg IV Q8H PRN PRN PRN Reason: NAUSEA/VOMITING Oxycodone HCl (Oxyir) 5 mg PO Q4H PRN PRN PRN Reason: Moderate Pain (4-6/10) Pantoprazole Sodium (Protonix) 20 mg PO BID [facility] Last Admin: 05/08/19 09:41 Dose: 20 mg Documented by: Senna/Docusate Sodium (Senokot-S, Eveline-Colace) 2 tablet PO BID PRN PRN PRN Reason: Constipation Sodium Chloride () 10 - 40 ml IV UD PRN PRN Reason: SALINE FLUSH Last Admin: 05/08/19 06:10 Dose: 10 ml Documented by: Tamsulosin HCl (Flomax) 0.8 mg PO DAILY [facility] Last Admin: 05/08/19 09:35 Dose: 0.8 mg Documented by: - Past Medical History Past Medical History (Chronic Problems): Chronic Problems (Last Reviewed 05/01/19 @ 08:23 by Evelyn Thurman NP-C) ESRD (end stage renal disease) (Chronic) History of non-ST elevation myocardial infarction (NSTEMI) (Chronic 01/21/11) Stented coronary artery (Chronic) 2003, JASON to circumflex ; 10/13/2009 tsfer from [facility] to [facility], total of 5 bare metal stents to [facility]: 3.5 X 18 Supervisory Geographer, followed distally by 3.0 X12 Supervisory Geographer to distal RCA;3.5 X 15 Supervisory Geographer, followed proximally by 4.0 X 18 Supervisory Geographer to Mid RCA; 4.0 X 18 Supervisory Geographer to Proximal RCA S/P CABG x 3 (Chronic 01/26/11) [facility] per Dr. Osito Hernandez: NICHOLAS to LAD, reverse SVG to OMbranch of CX, reverse SVG to PDA of RCA. PDA endarterectomy. 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, JASON to circumflex ; 10/10/2009 tsfer from [facility] to [facility], total of 5 bare metal stents to RCA; CABG X 3 vessels @ [facility] 01/31/2011 (critical left main and restenosis of RCA stents) Diastolic CHF (Chronic) HLD (hyperlipidemia) (Chronic) HTN (hypertension) (Chronic) PAD (peripheral artery disease) (Chronic) COPD (chronic obstructive pulmonary disease) (Chronic) Tobacco dependence (Chronic) Anemia (Chronic) BPH (benign prostatic hyperplasia) (Chronic) - Past Surgical History Surgical History: coronary bypass surgery, tonsillectomy, - - Social History Smoking Status: Current every day smoker - Family History Maternal Family History: Family History (Last Reviewed 05/01/19 @ 08:23 by SEUN Flowers) Father CAD (coronary artery disease) Hypertension Kidney disease CVA (cerebral vascular accident) Other Cancer History Items: Heart Disease Paternal Family History: Family History (Last Reviewed 05/01/19 @ 08:23 by SEUN Flowers) Father CAD (coronary artery disease) Hypertension Kidney disease CVA (cerebral vascular accident) Other Cancer History Items: Heart Disease, Hypertension, Renal Disease Review of Systems Constitutional: Denies: Chills, Fever, Weight Change HEENT: Denies: Head Aches, Sinus Congestion, Sinus Drainage Cardiovascular: Denies: Chest Pain, Palpitations Respiratory: Denies: Cough, Shortness of breath at rest, Sputum production Gastrointestinal: Denies: Abdominal Pain, Nausea, Vomiting Genitourinary: Denies: Dysuria Musculoskeletal: Denies: Joint Pain, Joint Tenderness Skin: Denies: Rash, Wounds Neurological: Denies: Numbness, Tingling, Focal weakness Psychiatric: Denies: Anxiety, Depression, Homicidal Ideations, Suicidal Ideations Hematologic/ Lymphatic: Denies: Easy Bruising, Easy Bleeding - Physical Exam General: Alert, Oriented x3, Cooperative HEENT: Atraumatic, PERRLA, EOMI, Normocephalic Neck: Supple, No JVD, Negative Carotid Bruits Lungs: Clear to auscultation, Normal air movement Cardiovascular: Regular rate, No murmurs Abdomen: Bowel Sounds Present, Soft, Non Tender Extremities: No edema, Capillary Refill Less than 3 Seconds Skin: No rashes, No breakdown Musculoskeletal: No Tenderness to Palpation of Joints or Extremities Neurological: Cranial nerves II-XII grossly intact Psych/Mental Status: Normal Affect, Appropriate Vital Signs Temp Pulse Resp BP Pulse Ox 98.1 F 75 15 119/46 L 100 05/08/19 13:04 05/08/19 13:04 05/08/19 13:04 05/08/19 13:04 05/08/19 13:04 Oxygen Flow Rate (L/min) 3 Oxygen Delivery Method Nasal Cannula Weight: 69.2 kg Body Mass Index (BMI) 25.4 Finger Stick Blood Glucose 200 Intake and Output for Last 24 Hours 05/06/19 05/07/19 05/08/19 23:59 23:59 23:59 Intake Total 100 / 100 1028 / 1028 Output Total 0 / 0 Balance 100 / 100 1028 / 1028 Laboratory Tests Past 24 Hrs 05/07/19 05/07/19 05/07/19 16:00 16:00 16:00 WBC 9.8 RBC 2.28 L Hgb 7.1 L Hct 22.4 L MCV 98.2 H MCH 31.1 MCHC 31.7 L RDW Std Deviation 65.4 H RDW Coeff of Eleni 18.4 H Plt Count 265 MPV 10.8 Immature Gran % (Auto) 0.500 Neut % (Auto) 83.6 H Lymph % (Auto) 8.1 L [place] % (Auto) 5.9 Eos % (Auto) 1.7 Baso % (Auto) 0.2 Absolute Neuts (auto) Not Reportable Absolute Lymphs (auto) 0.79 L Absolute Nucleated RBC 0.00 Nucleated RBC % 0 Platelet Estimate ADEQUATE Hypochromasia 1+ Anisocytosis 1+ Macrocytosis 1+ Tear Drop Cells RARE Ovalocytes RARE PT 13.0 INR 1.0 APTT 32.8 Sodium 130 L Potassium 3.7 Chloride 93 L Carbon Dioxide 29.0 Anion Gap 8 BUN 69 H Creatinine 5.13 H Estim Creat Clear Calc 12.15 Est GFR (MDRD) Af Amer 15 L Est GFR (MDRD) Non-Af 12 L BUN/Creatinine Ratio 13.5 Glucose 110 H Calcium 9.3 Total Bilirubin 0.80 Direct Bilirubin 0.15 AST 39 H ALT 21 Alkaline Phosphatase 108 Total Protein 7.2 Albumin 3.0 L Globulin 4.2 Lipase 317 Blood Type Antibody Screen Crossmatch 05/07/19 05/07/19 05/08/19 16:00 16:00 04:32 WBC 6.8 RBC 2.08 L Hgb 6.5 L Hct 20.7 L MCV 99.5 H MCH 31.3 MCHC 31.4 L RDW Std Deviation 61.7 H RDW Coeff of Eleni 17.5 H Plt Count 170 MPV 9.6 Immature Gran % (Auto) 0.300 Neut % (Auto) 76.8 H Lymph % (Auto) 10.4 L [place] % (Auto) 10.1 H Eos % (Auto) 2.3 Baso % (Auto) 0.1 Absolute Neuts (auto) 5.2 Absolute Lymphs (auto) 0.71 L Absolute Nucleated RBC 0.00 Nucleated RBC % 0 Platelet Estimate Hypochromasia Anisocytosis Macrocytosis Tear Drop Cells Ovalocytes PT INR APTT Sodium Potassium Chloride Carbon Dioxide Anion Gap BUN Creatinine Estim Creat Clear Calc Est GFR (MDRD) Af Amer Est GFR (MDRD) Non-Af BUN/Creatinine Ratio Glucose Calcium Total Bilirubin Direct Bilirubin AST ALT Alkaline Phosphatase Total Protein Albumin Globulin Lipase Blood Type A NEGATIVE Antibody Screen NEGATIVE Crossmatch See Detail 05/08/19 04:32 WBC RBC Hgb Hct MCV MCH MCHC RDW Std Deviation RDW Coeff of Eleni Plt Count MPV Immature Gran % (Auto) Neut % (Auto) Lymph % (Auto) Starke % (Auto) Eos % (Auto) Baso % (Auto) Absolute Neuts (auto) Absolute Lymphs (auto) Absolute Nucleated RBC Nucleated RBC % Platelet Estimate Hypochromasia Anisocytosis Macrocytosis Tear Drop Cells Ovalocytes PT INR APTT Sodium 133 L Potassium 3.6 Chloride 96 L Carbon Dioxide 27.0 Anion Gap 10 BUN 79 H Creatinine 6.15 H Estim Creat Clear Calc 10.14 Est GFR (MDRD) Af Amer 12 L Est GFR (MDRD) Non-Af 10 L BUN/Creatinine Ratio 12.8 Glucose 91 Calcium 8.3 L Total Bilirubin Direct Bilirubin AST ALT Alkaline Phosphatase Total Protein Albumin Globulin Lipase Blood Type Antibody Screen Crossmatch Assessment/Plan All Active Problems (Last Reviewed 05/01/19 @ 08:23 by Evelyn Thurman, TELE RN-C) RAVEN (obstructive sleep apnea) (Acute) COPD exacerbation (Acute) Acute respiratory failure with hypoxia (Acute) End-stage renal disease. Arrange for hemodialysis today Anemia. Due to blood loss. Receiving blood transfusion today. Dyspnea. Probable fluid overload due to recent blood transfusions. Called dialysis staff. Dialysis will be done today.
--- NOTE | 2019-05-08 15:31 | NURSING ---
[facility] called for updated vs and report does not have a bed yet
--- NOTE | 2019-05-08 15:47 | DS.PCM_ITS ---
Discharge Date and Diagnosis Date of Admission: 05/07/19 Date of Discharge: 05/08/19 - Primary Discharge Diagnosis Severe anemia Acute GI bleed - Secondary Discharge Diagnosis Chronic Problems (Last Reviewed 05/01/19 @ 08:23 by SEUN Flowers) ESRD (end stage renal disease) (Chronic) History of non-ST elevation myocardial infarction (NSTEMI) (Chronic 01/21/11) Stented coronary artery (Chronic) 2003, JASON to circumflex ; 10/13/2009 tsfer from [facility], total of 5 bare metal stents to RCA per Dr. Barrientos @ [facility]: 3.5 X 18 Instructor Flying, followed distally by 3.0 X12 Instructor Flying to distal RCA;3.5 X 15 Instructor Flying, followed proximally by 4.0 X 18 Instructor Flying to Mid RCA; 4.0 X 18 Instructor Flying to Proximal RCA S/P CABG x 3 (Chronic 01/26/11) [facility] per Dr. Osito Hernandez: NICHOLAS to LAD, reverse SVG to OMbranch of CX, reverse SVG to PDA of RCA. PDA endarterectomy. Status post peripheral artery angioplasty with insertion of stent (Chronic ~2010) Right common iliac, [facility] Atherosclerotic heart disease of [place] coronary artery without angina pectoris (Chronic) 2003, JASON to circumflex ; 10/10/2009 tsfer from [facility] to [facility], total of 5 bare metal stents to RCA; CABG X [address] [facility] 011 (critical left main and restenosis of RCA stents) Diastolic CHF (Chronic) HLD (hyperlipidemia) (Chronic) HTN (hypertension) (Chronic) PAD (peripheral artery disease) (Chronic) COPD (chronic obstructive pulmonary disease) (Chronic) Tobacco dependence (Chronic) Anemia (Chronic) BPH (benign prostatic hyperplasia) (Chronic) Hospital Course and Treatment Imaging Results: None Nephrology Operations: None Procedures: Dialysis Summary of Care Provided: The patient is a 68 year old M with multiple comorbidities including ESRD on hemodialysis, chronic diastolic CHF, CAD, 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 He has been transfused multiple times. He was sent to the emergency department by his dialysis team when his hemoglobin was found to be 6.4. Patient admits to having intermittent melena stools in his ileostomy bag. His last melena stools was the day before admission. Patient was supposed to get capsule endoscopy by us yet to be set up with. He was admitted with hemoglobin of 6.0, received 1 unit packed RBC. His hemoglobin dropped the next day again to 6.5, received on the unit of packed RBC. Discussed with his gastroenterology team in [facility], who he was yet to set up with for capsule endoscopy. They did not do capsule endoscopy inpatient and feel this patient should be transferred to a tertiary center. Patient was accepted by [facility]. He did receive dialysis prior to leaving. Of note is a patient was being set up with home peritoneal dialysis but had hemodialysis prior to leaving. Subjective: On the day of discharge, patient was seen and examined. Denied any complaints. He felt improved. He was being transfused on the unit of blood at the time of being seen. - Physical Exam General: Alert, Oriented x3, Cooperative, No apparent distress HEENT: Atraumatic, PERRLA, EOMI, Normocephalic Oral: Moist Mucosa Neck: Supple Lungs: Clear to auscultation, Normal air movement Cardiovascular: Regular rate, Regular Rhythm, Normal S1, Normal S2, No murmurs Abdomen: Bowel Sounds Present, Soft, Non Tender, Non-Distended, No Hepato-splenomegaly Extremities: No edema Skin: No rashes, No breakdown Musculoskeletal: No Tenderness to Palpation of Joints or Extremities Neurological: Cranial nerves II-XII grossly intact, Neuro grossly intact Psych/Mental Status: Normal Affect, Appropriate Vital Signs Temp Pulse Resp BP Pulse Ox 98.1 F 75 15 119/46 L 100 05/08/19 13:04 05/08/19 13:04 05/08/19 13:04 05/08/19 13:04 05/08/19 13:04 Oxygen Flow Rate (L/min) 3 Oxygen Delivery Method Nasal Cannula Weight: 69.2 kg Body Mass Index (BMI) 25.4 Finger Stick Blood Glucose 200 Intake and Output for Last 24 Hours 05/06/19 05/07/19 05/08/19 23:59 23:59 23:59 Intake Total 100 / 100 1028 / 1028 Output Total 0 / 0 Balance 100 / 100 1028 / 1028 Laboratory Tests Past 24 Hrs 05/07/19 05/07/19 05/07/19 16:00 16:00 16:00 WBC 9.8 RBC 2.28 L Hgb 7.1 L Hct 22.4 L MCV 98.2 H MCH 31.1 MCHC 31.7 L RDW Std Deviation 65.4 H RDW Coeff of Eleni 18.4 H Plt Count 265 MPV 10.8 Immature Gran % (Auto) 0.500 Neut % (Auto) 83.6 H Lymph % (Auto) 8.1 L [place] % (Auto) 5.9 Eos % (Auto) 1.7 Baso % (Auto) 0.2 Absolute Neuts (auto) Not Reportable Absolute Lymphs (auto) 0.79 L Absolute Nucleated RBC 0.00 Nucleated RBC % 0 Platelet Estimate ADEQUATE Hypochromasia 1+ Anisocytosis 1+ Macrocytosis 1+ Tear Drop Cells RARE Ovalocytes RARE PT 13.0 INR 1.0 APTT 32.8 Sodium 130 L Potassium 3.7 Chloride 93 L Carbon Dioxide 29.0 Anion Gap 8 BUN 69 H Creatinine 5.13 H Estim Creat Clear Calc 12.15 Est GFR (MDRD) Af Amer 15 L Est GFR (MDRD) Non-Af 12 L BUN/Creatinine Ratio 13.5 Glucose 110 H Calcium 9.3 Total Bilirubin 0.80 Direct Bilirubin 0.15 AST 39 H ALT 21 Alkaline Phosphatase 108 Total Protein 7.2 Albumin 3.0 L Globulin 4.2 Lipase 317 Blood Type Antibody Screen Crossmatch 05/07/19 05/07/19 05/08/19 16:00 16:00 04:32 WBC 6.8 RBC 2.08 L Hgb 6.5 L Hct 20.7 L MCV 99.5 H MCH 31.3 MCHC 31.4 L RDW Std Deviation 61.7 H RDW Coeff of Eleni 17.5 H Plt Count 170 MPV 9.6 Immature Gran % (Auto) 0.300 Neut % (Auto) 76.8 H Lymph % (Auto) 10.4 L [place] % (Auto) 10.1 H Eos % (Auto) 2.3 Baso % (Auto) 0.1 Absolute Neuts (auto) 5.2 Absolute Lymphs (auto) 0.71 L Absolute Nucleated RBC 0.00 Nucleated RBC % 0 Platelet Estimate Hypochromasia Anisocytosis Macrocytosis Tear Drop Cells Ovalocytes PT INR APTT Sodium Potassium Chloride Carbon Dioxide Anion Gap BUN Creatinine Estim Creat Clear Calc Est GFR (MDRD) Af Amer Est GFR (MDRD) Non-Af BUN/Creatinine Ratio Glucose Calcium Total Bilirubin Direct Bilirubin AST ALT Alkaline Phosphatase Total Protein Albumin Globulin Lipase Blood Type A NEGATIVE Antibody Screen NEGATIVE Crossmatch See Detail 05/08/19 04:32 WBC RBC Hgb Hct MCV MCH MCHC RDW Std Deviation RDW Coeff of Eleni Plt Count MPV Immature Gran % (Auto) Neut % (Auto) Lymph % (Auto) [place] % (Auto) Eos % (Auto) Baso % (Auto) Absolute Neuts (auto) Absolute Lymphs (auto) Absolute Nucleated RBC Nucleated RBC % Platelet Estimate Hypochromasia Anisocytosis Macrocytosis Tear Drop Cells Ovalocytes PT INR APTT Sodium 133 L Potassium 3.6 Chloride 96 L Carbon Dioxide 27.0 Anion Gap 10 BUN 79 H Creatinine 6.15 H Estim Creat Clear Calc 10.14 Est GFR (MDRD) Af Amer 12 L Est GFR (MDRD) Non-Af 10 L BUN/Creatinine Ratio 12.8 Glucose 91 Calcium 8.3 L Total Bilirubin Direct Bilirubin AST ALT Alkaline Phosphatase Total Protein Albumin Globulin Lipase Blood Type Antibody Screen Crossmatch Discharge Diet: Low fat/ Low Cholesterol, 2000 mg Sodium Diet Discharge Activity: Return to Normal Activity Home Medications: Medications to take at Discharge Albuterol Sulfate 2.5 mg IH Q4H PRN 11/13/18 Alprazolam [Xanax] 1 mg PO TID PRN 11/13/18 Aspirin E.C. [Ecotrin] 81 mg PO QHS 11/13/18 Tamsulosin HCl [Flomax] 0.8 mg PO DAILY 11/13/18 Metoprolol(XL)Succ [Toprol Xl (Beta Kadi)] 100 mg PO BID PRN 12/06/18 ascorbate calcium (vitamin C) 500 mg tablet 500 mg PO DAILY 03/02/19 clopidogrel 75 mg tablet 75 mg PO DAILY 03/02/19 omega-3 fatty acids 1,000 mg capsule 1,000 mg PO BID 03/02/19 Cholecalciferol (VIT D3) [Vitamin D3] 1,000 unit PO DAILY 03/26/19 Omeprazole 20 mg PO BID 04/09/19 Rosuvastatin Calcium 40 mg PO QHS 04/09/19 Folic Acid/Vitamin B Comp W-C [Nephrocaps, Renaphro] 1 cap PO DAILY 05/07/19 Ipratropium/Albuterol Sulfate [Iprat-Albut 0.5-3(2.5) mg/3 ml] 1 inh INHALATION Q4H PRN 05/07/19 Primary Care Physician: Tania Berger NP-C [Primary Care Provider] - Please follow up with your Primary Care Physician in: within 1-2 weeks Disposition: Home Minutes spent on discharge:: 40 Patient Condition:: Stable Medical Necessity - Tobacco Use Smoking Status: Current every day smoker Tobacco Use: Cigarettes Meaningful Use Info Meaningful Use Diagnoses (Choose all that apply): None applicable Code Visit Inpatient E&M: 18632 Disch Hosp
[2019-05-08 16:57] LABS: Hematocrit 25.8 % (40-54); Hemoglobin 8.3 g/dL (13.0-16.5)
--- NOTE | 2019-05-08 19:37 | NURSING ---
report called to sourav Gaxiola at [facility] [phone] patient going to room 5433
--- NOTE | 2019-05-08 20:05 | DIALYSIS ---
hemodialysis x 2 hours completed today. -1500ml off. stable t/o and tolerated well during tx. Hemostasis to needle sites obtained and gauze/tape applied. Report to Linda ANDRADE. Pt's ostomy leaking/towel placed and nurse aware.
[2019-05-08] MEDS: ALPRAZolam 0.5 MG Tablet 1 MG PO ×2 (20:16)
[2019-05-08] MEDS: Atorvastatin Calcium 80 MG Tablet PO ×2 (21:45)
== END 2019-05-08 22:54 | disposition short-term general hospital (02) | DRG 811 ==
LOC: ED 16:12 → PCU 19:02
PROVIDERS: Admitting Provider Internal Medicine; Emergency Provider Emergency Medicine; Family Provider Nurse Practitioner Family; PCP Nurse Practitioner Family; Referring Provider Internal Medicine; Visit Provider Internal Medicine
DX: D50.0 Iron deficiency anemia secondary to blood loss (chronic) (principal); N18.6 End stage renal disease; I13.2 Hypertensive heart and chronic kidney disease with heart failure and with stage 5 chronic kidney disease, or end stage renal disease; I50.32 Chronic diastolic (congestive) heart failure; J96.11 Chronic respiratory failure with hypoxia; K92.2 Gastrointestinal hemorrhage, unspecified; N40.0 Benign prostatic hyperplasia without lower urinary tract symptoms; I73.9 Peripheral vascular disease, unspecified; E78.5 Hyperlipidemia, unspecified; I25.10 Atherosclerotic heart disease of native coronary artery without angina pectoris; F17.210 Nicotine dependence, cigarettes, uncomplicated; G47.33 Obstructive sleep apnea (adult) (pediatric); J44.9 Chronic obstructive pulmonary disease, unspecified; Z99.81 Dependence on supplemental oxygen; Z90.49 Acquired absence of other specified parts of digestive tract; Z95.5 Presence of coronary angioplasty implant and graft; Z93.2 Ileostomy status; I25.2 Old myocardial infarction; Z95.1 Presence of aortocoronary bypass graft; Z79.52 Long term (current) use of systemic steroids
CPT/HCPCS: 36415; 80048; 80076; 83690; 85014; 85018; 85025; 85610; 85730; 86850; 86900; 86920; 86922; 90937; 93005; 94003; 94640; 97162; 97165; 97802; 99284; J7030; P9016; A4216; G0257

== ENCOUNTER → 2019-05-14 | Outpatient (CLI) | payer MEDICARE, SELFPAY ==
[2019-05-09 15:02] VITALS: BMI 24.7
[2019-05-14 12:42] LABS: Hemoglobin 7.6 g/dL (13.0-16.5)
== END | disposition home or self-care (01) ==
LOC: LABSPEC 12:26
PROVIDERS: Family Provider Nurse Practitioner Family; PCP Nurse Practitioner Family; Referring Provider Internal Medicine Nephrology; Visit Provider Internal Medicine Nephrology
DX: N18.6 End stage renal disease (principal)
CPT/HCPCS: 85018

== ENCOUNTER 2019-05-19 06:41 | Emergency (ER) | payer MEDICARE, SELFPAY ==
[2019-05-09 15:02] VITALS: BMI 24.7
[2019-05-19] VITALS (10 sets, daily range): BP systolic 112–141; BP diastolic 5–66; PULSE 85–95; RESP 18–29; TEMP 36.4–37; O2SAT 99–100; BMI 25.7
--- NOTE | 2019-05-19 06:50 | RAD_ITS ---
HISTORY: shortness of breath ADDITIONAL HISTORY: None provided. COMPARISON: 04/09/2019 TECHNIQUE: Frontal chest radiograph. Number of images including paperwork: 1 FINDINGS: LUNGS AND PLEURA: Small bilateral pleural effusions and bibasilar opacities. CARDIAC SILHOUETTE: Stable. MEDIASTINUM AND JULIANNA: Unchanged aortic calcification and tortuosity. UPPER ABDOMEN: Unremarkable. SKELETON AND SOFT TISSUES: No acute findings. Degenerative changes. OTHER DEVICES AND HARDWARE: Sternal wires and surgical clips. RAD/Chest 1 View (Portable) IMPRESSION: Small bilateral pleural effusions with bibasilar atelectasis, edema and/or other cause of infiltrate. at 0732 Reported and signed by: Carole Fisher MD Electronically Signed: Carole Fisher MD at 7:32 EDT Tel , Service support ,
--- NOTE | 2019-05-19 06:51 | EKG12_ITS ---
Test Reason : Blood Pressure : / mmHG Vent. Rate : 091 BPM Atrial Rate : 089 BPM P-R Int : 216 ms QRS Dur : 094 ms QT Int : 408 ms P-R-T Axes : 000 047 060 degrees QTc Int : 501 ms Atrial fibrillation Poor R-Wave Progression Left ventricular hypertrophy Prolonged QT Abnormal ECG Confirmed by SANTANA MONTENEGRO, KEISHA ([id number]), editor & co founder PATSY LINN ([id number]) on 05/23/2019 10:27:03 AM Referred By: Confirmed By:KEISHA DILLON MD
--- NOTE | 2019-05-19 06:52 | ED.DCSUM_ITS ---
History of Present Illness Chief Complaint: Shortness of Breath Informant: Patient, EMS Onset: Yesterday Activity at onset: - - after dialysis -- took off 2L fluid Quality: Dyspnea on exertion, Wheezing Current Severity: Mild Maximum Severity: Severe Worsened by: Coughing, Exertion, Lying flat Relieved by: Albuterol, Oxygen Associated Symptoms: Clear sputum, Cough. Negative for: Bloody Sputum, Fever Chest Pain: None Narrative: Patient is relatively poor historian. EMS was using CPAP and a duo nebulizer plus another albuterol treatment in route, they thought he was tiring. Patient states his breathing has improved now and he is breathing much better. He has COPD and congestive heart failure, chronic edema in his legs that he thinks is unchanged. Given Solu-Medrol 125mg by EMS prior to arrival. - Past Medical History (1) RAVEN (obstructive sleep apnea) Status: Chronic (2) Anemia Status: Chronic (3) Atherosclerotic heart disease of [place] coronary artery without angina pectoris Status: Chronic Comment: 2003, JASON to circumflex ; 10/10/2009 tsfer from [facility] to [facility], total of 5 bare metal stents to RCA; CABG X 3 vessels @ [facility] 01/31/2011 (critical left main and restenosis of RCA stents) (4) BPH (benign prostatic hyperplasia) Status: Chronic (5) COPD (chronic obstructive pulmonary disease) Status: Chronic (6) Diastolic CHF Status: Chronic (7) HLD (hyperlipidemia) Status: Chronic (8) HTN (hypertension) Status: Chronic (9) History of non-ST elevation myocardial infarction (NSTEMI) Status: Chronic (10) PAD (peripheral artery disease) Status: Chronic (11) Status post peripheral artery angioplasty with insertion of stent Status: Chronic Comment: Right common iliac, [facility] (12) Chronic atrial fibrillation Status: Chronic Past Medical History - Allergies and Home Meds Allergies/Adverse Reactions: Allergies irbesartan [From Avapro] Allergy (Severe, Verified 05/01/19 08:04) Blisters zolpidem [From Ambien] Adverse Reaction (Severe, Verified 05/01/19 08:04) made me go crazy, memory loss amoxicillin Adverse Reaction (Intermediate, Verified 05/07/19 19:43) PASSES BLOOD IN STOOL TOLERATES ZOSYN PASSES BLOOD IN STOOL metronidazole [From Flagyl] Adverse Reaction (Verified 05/07/19 19:43) pt states he got palpitations and nose bleed. pt states he got palpitations and nose bleed. Primary Care Physician: Tania Berger NP-C [Primary Care Provider] - Surgical History: coronary bypass surgery, tonsillectomy, - Smoking Status: Current every day smoker Drugs: None - Family History Maternal Family History: Family History (Last Reviewed 05/01/19 @ 08:23 by SEUN Flowers) Father CAD (coronary artery disease) Hypertension Kidney disease CVA (cerebral vascular accident) Other Cancer Family History: Reports: Heart Disease Paternal Family History: Family History (Last Reviewed 05/01/19 @ 08:23 by SEUN Flowers) Father CAD (coronary artery disease) Hypertension Kidney disease CVA (cerebral vascular accident) Other Cancer Family History: Reports: Heart Disease, Hypertension, Renal Disease Review of Systems ROS: Unable to Obtain - limited hx. poor historian. General: Reports: Malaise. Denies: Fever ENT: Denies: Rhinorrhea, Sore throat Cardiovascular: Denies: Chest pain, Palpitations Respiratory: Reports: Dyspnea, Cough, Sputum, Dyspnea on exertion, Orthopnea Gastrointestinal: Reports: Hematochezia - off and on for 2 yrs in colostomy. Denies: Abdominal pain, Nausea, Vomiting, Diarrhea, Melena Musculoskeletal: Reports: Swelling - chronic BLE, unchanged. Denies: Neck pain, Back pain, Extremity Pain Skin: Denies: Rash, Wounds Neurological: Denies: Headache, Weakness, Numbness Physical Exam Vital Signs/Narrative: Vital Signs Temp Pulse Resp BP Pulse Ox 05/19/19 06:47 93 27 H 119/52 L 100 05/19/19 06:46 98.6 F 85 28 H 118/5 L 100 05/19/19 06:41 98.6 F 85 28 H 118/5 L 100 Inital Vital Signs reviewed: Yes General: Well nourished, Well developed, No Acute Distress Head: Normocephalic, Atraumatic Eyes: Perrl, EOMI ENT: Moist mucous membranes, No rhinorrhea Neck: Supple, Nontender, - - JVD w/ conversation Cardiovascular: Regular rate, Regular rhythm, No murmurs Respiratory: No distress, Chest nontender, Wheezing - all noel. Negative for: Rales, Rhonchi Abdomen: Soft, Nontender, Nondistended, Normal bowel sounds, - - stoma w/ nonbloody stool RLQ Back: Nontender, Normal Inspection Extremities: Nontender, Edema - 3+ BLE symmetric. Negative for: Calf Tenderness Skin: Normal color, No rash, No Trauma Neurological: Alert, Oriented x3, Cranial nerves II-XII grossly intact, Normal Strength, Normal Sensation Psychological: Normal affect, Normal Mood Diagnostic/Tx/Re-eval - Rhythm Strip Rhythm Strip: A-fib Rate: 90 Ectopy: None - EKG Initial EKG Interpretation: No Acute Injury Pattern, Atrial Fibrillation - in 90's Prior: Unchanged Treatment - Dyspnea: Oxygen - Medical Decision Making Seen just prior to shift change -- workup ordered. Pt finished EMS neb treatments and feels he is breathing much better. Is oxygenating well on NC now, so will hold off on Bipap/CPAP. ABG ordered and reassuringly shows a mild respiratory alkalosis. His hemoglobin is 5.0; he has had GI bleeding off and on recently, states he was recently admitted to a hospital in [place] for this and discharged 2 days ago after they did scopes and could not find anything, after Dr. Henderson here performed EGD and did not find anything. He states his hemoglobin was around 8 at the beginning of this past week. He is on Plavix but no anticoagulants. Consented for blood transfusion and sent a hemoccult to the lab. Checked out to oncoming emergency physician. Critical care time (excluding procedures): 30-74 minutes - 35 minutes, including time spent discussing with patient, discussing with consultants, discussing with EMS, performing direct patient care to bedside ED Disposition - Plan for ED Patient: Diagnosis: GI bleeding, Acute blood loss anemia Referrals: Tania Berger, ARMEN-C [Primary Care Provider] -
[2019-05-19 07:02] LABS: Absolute Lymphocyte Count 0.94 X10^3/uL (0.83-4.51); Absolute Neutrophil Count 5.9 X10^3/uL (2.0-7.7); Basophil# 0.02 X10^3/uL; Basophil% 0.2 % (0-1); Eosinophil# 0.26 X10^3/uL; Eosinophils% 3.2 % (0-5); Hematocrit 16.4 % (40-54); Lymphocyte # 0.94 X10^3/ul (4.0); Lymphocyte % 11.7 % (19-41); Mean Corp Hgb Conc 30.5 g/dL (32-36); Mean Corpuscular Hgb 32.1 pg (27.0-32.0); Mean Corpuscular Volume 105.1 fL (80-94); Monocyte# 0.86 X10^3/uL; Monocyte% 10.7 % (0-10); NRBC Flagged by Analyzer 0.2 % (0-5); Neutrophil # 5.85 X10^3/uL (2.7-7.7); Neutrophil % 73.1 % (47-70); POSITIVE COUNT YES; POSITIVE MORPHOLOGY YES; Platelet Count 163 K/mm3 (150-450); RBC Distribution Width SD 76.4 fl (35.1-43.9); Red Blood Count 1.56 M/mm3 (4.6-6.2)
[2019-05-19 07:14] LABS: Differential Indicated SCAN CRITERIA MET
[2019-05-19 07:15] LABS: Allen Test POS; Base Excess 4 mmol/L (-2 to +2); Bicarbonate 27.2 mmol/L (22-26); Blood Gas Specimen Type ART; O2 Delivery Device Nasal Can; PO2 111 mmHG (75-100); SITE R Radial; SO2 99 % (95-99); Time Given 706; Total Carbon Dioxide 28 mmol/L; pCO2 36.6 mmHg (35-45); pH 7.48 (7.35-7.45)
[2019-05-19 07:19] LABS: Anion Gap 10 (5-15); BUN 65 mg/dL (7-18); Calcium,Total 8.2 mg/dL (8.5-10.1); Chloride 91 mmol/L (98-107); EST Glomerular Filtration Rate 12 mL/min (>60); Est Glom Filt Rate - Afr Amer 15 mL/min (>60); Estimated Creatinine Clearance 12.94 ml/min; Glucose 111 mg/dL (74-106); Potassium 3.6 mmol/L (3.5-5.1); Sodium Level 131 mmol/L (136-145)
[2019-05-19 07:34] LABS: Anisocytosis RARE; Basophilic Stippling 1+; Hypochromasia RARE; Platelet Estimate ADEQUATE (ADEQ); Polychromasia 1+
[2019-05-19 07:35] LABS: Lactic Acid 1.1 mmol/L (0.4-2.0)
--- NOTE | 2019-05-19 08:06 | NURSING ---
CALLED [facility] FOR TRANSFER. TALKED TO KENNEDY
--- NOTE | 2019-05-19 08:08 | ED.DCSUM_ITS ---
- ER Visit Summary Date of Service: 05/19/19 Patient was signed out to me pending final laboratory evaluation. I was able to review notes from [facility] in [facility]. Capsule endoscopy did not show obvious source Dr. Henderson. He states the patient needs to be seen by GI specialist and that he has done all he can do from general surgery standpoint. This was discussed with the patient. Patient states he is currently undergoing scheduling for cardiac ablation for his A. fib at [facility] in [place] and he would prefer to go there if possible. I spoke with transfer line at [facility] the patient has been accepted in transfer. Disposition: Discharge Impression: 1. COPD exacerbation 2. GI bleed This note was generated with Outline dictation software. It may contain incorrect words, spelling, and punctuation that were not noted in review of the chart prior to signing ED Disposition - Plan for ED Patient: Diagnosis: GI bleeding, Acute blood loss anemia Referrals: Tania Berger, PASSENGER LOCOMOTIVE ENGINEER-C [Primary Care Provider] -
--- NOTE | 2019-05-19 09:15 | NURSING ---
CALLED [facility] FOR TRANSPORT. ETA IS FROM [place]
[2019-05-21 11:11] LABS: Pathologist Review Reviewed
== END 2019-05-19 10:28 | disposition short-term general hospital (02) ==
LOC: ED 07:27
PROVIDERS: Emergency Provider Emergency Medicine; Family Provider Nurse Practitioner Family; PCP Nurse Practitioner Family
DX: J44.1 Chronic obstructive pulmonary disease with (acute) exacerbation (principal); K92.2 Gastrointestinal hemorrhage, unspecified; D62 Acute posthemorrhagic anemia; G47.33 Obstructive sleep apnea (adult) (pediatric); I25.10 Atherosclerotic heart disease of native coronary artery without angina pectoris; N40.0 Benign prostatic hyperplasia without lower urinary tract symptoms; I11.0 Hypertensive heart disease with heart failure; I50.32 Chronic diastolic (congestive) heart failure; E78.5 Hyperlipidemia, unspecified; I25.2 Old myocardial infarction; I73.9 Peripheral vascular disease, unspecified; I48.2 Chronic atrial fibrillation; Z95.1 Presence of aortocoronary bypass graft; Z95.820 Peripheral vascular angioplasty status with implants and grafts; Z79.82 Long term (current) use of aspirin; Z79.02 Long term (current) use of antithrombotics/antiplatelets; Z79.899 Other long term (current) drug therapy; F17.200 Nicotine dependence, unspecified, uncomplicated
CPT/HCPCS: 36600; 71045; 80048; 82274; 82803; 83605; 83880; 84484; 85025; 86850; 86900; 86920; 86922; 87040; 93005; 99285; J7040; P9016; A4216

== ENCOUNTER 2019-05-25 09:25 | Observation (INO) | payer MEDICARE, SELFPAY ==
[2019-05-19 06:41] VITALS: BMI 25.7
[2019-05-25] VITALS (25 sets, daily range): BP systolic 134–161; BP diastolic 50–77; PULSE 68–132; RESP 12–35; TEMP 36.5–36.8; O2SAT 95–100; BMI 27.7; BMI 24.9
--- NOTE | 2019-05-25 09:53 | RAD_ITS ---
STUDY: X-RAY CHEST REASON FOR EXAM: Male, 68 years old. Increasing shortness of breath. TECHNIQUE: Single AP portable view of the chest. COMPARISON: Comparison is made with prior study May 19, 2019. FINDINGS: EKG electrodes are seen. There is evidence of persistent vascular congestion and mild CHF with superimposed bibasilar atelectasis and/or infiltrates and small bilateral effusions. Sternal cerclage wires and vascular clips are present from a prior sternotomy and coronary artery bypass graft procedure (CABG). Normal mediastinum and justyn. Normal visualized pulmonary arteries. There is atherosclerotic calcification of the aortic arch with tortuosity. There are diffuse degenerative changes of the visualized thoracic spine. Normal visualized ribs, clavicles, and shoulders. There is no demonstrated abnormality of the visualized soft tissue structures of the upper abdomen. RAD/Chest 1 View (Portable) IMPRESSION: Vascular congestion with bibasilar atelectasis and/or infiltrates and small bilateral effusions. These have progressed as compared to prior study. Electronically Signed: Deven Hensley, at 10:09 EDT , Service support ,
--- NOTE | 2019-05-25 09:53 | EKG12_ITS ---
Test Reason : SOB Blood Pressure : / mmHG Vent. Rate : 089 BPM Atrial Rate : 089 BPM P-R Int : 180 ms QRS Dur : 086 ms QT Int : 372 ms P-R-T Axes : 000 056 151 degrees QTc Int : 452 ms Normal sinus rhythm Nonspecific ST and T wave abnormality Abnormal ECG Confirmed by SID REAGAN ([id number]), assistant film editor PATSY LINN ([id number]) on 05/28/2019 1:57:24 PM Referred By: Carmen Duong Confirmed By:SID REAGAN
[2019-05-25] MEDS: Ipratropium/Albuterol Sulfate 3 ML AMPUL.NEB INHALATION ×4 (10:09→21:53)
[2019-05-25 10:25] LABS: Absolute Lymphocyte Count 0.71 X10^3/uL (0.83-4.51); Absolute Neutrophil Count 10.6 X10^3/uL (2.0-7.7); Basophil# 0.05 X10^3/uL; Basophil% 0.4 % (0-1); Eosinophil# 0.53 X10^3/uL; Eosinophils% 4.2 % (0-5); Hematocrit 28.6 % (40-54); Lymphocyte # 0.71 X10^3/ul (4.0); Lymphocyte % 5.6 % (19-41); Mean Corp Hgb Conc 31.5 g/dL (32-36); Mean Corpuscular Hgb 32.1 pg (27.0-32.0); Mean Corpuscular Volume 102.1 fL (80-94); Mean Platelet Vol. 9.4 fl (6.2-12.0); Monocyte# 0.82 X10^3/uL; Monocyte% 6.4 % (0-10); NRBC Flagged by Analyzer 0 % (0-5); Neutrophil # 10.55 X10^3/uL (2.7-7.7); Neutrophil % 82.9 % (47-70); POSITIVE MORPHOLOGY YES; Platelet Count 240 K/mm3 (150-450); RBC Distribution Width CV 20.2 % (11.6-14.6); RBC Distribution Width SD 74.4 fl (35.1-43.9); White Blood Count 12.7 K/mm3 (4.4-11.0)
[2019-05-25 10:46] LABS: Anion Gap 9 (5-15); BUN 53 mg/dL (7-18); BUN/Creat Ratio 8.4 RATIO (10-20); Calcium,Total 9.1 mg/dL (8.5-10.1); Chloride 99 mmol/L (98-107); Creatinine, Serum 6.33 mg/dL (0.70-1.30); EST Glomerular Filtration Rate 9 mL/min (>60); Est Glom Filt Rate - Afr Amer 11 mL/min (>60); Estimated Creatinine Clearance 10.22 ml/min; Glucose 101 mg/dL (74-106); Potassium 5.8 mmol/L (3.5-5.1); Sodium Level 135 mmol/L (136-145)
[2019-05-25 10:57] LABS: Anisocytosis 1+
[2019-05-25 10:58] LABS: Differential Indicated SCAN CRITERIA MET
--- NOTE | 2019-05-25 11:10 | ED.VISSUMM ---
- ER Visit Summary Date of Service: 05/25/19 Chief Complaint: [Shortness of breath] History of Present Illness: The patient is a 68 M [presents with increasing shortness of breath over the last week. Patient states today the breathing got really difficult. Patient was just discharged from [facility] yesterday after being admitted there for anemia and he states that he required some cauterizations of some lesions in his stomach. Patient was discharged when his hemoglobin improved. Patient complains of a cough that is been nonproductive. Patient does have a history of COPD and continues to smoke. He denies any real chest pain. Patient is scheduled to have dialysis today and his last dialysis was 2 days ago. Patient was brought to ER via EMS. Patient has history of coronary artery disease, CHF, COPD, hypertension, A. fib, and peripheral artery disease. Had been on Plavix but was taken off when he had the anemia and GI bleeding.] Physical Examination: [HEENT-PERRLA, EOMI. Cranial nerves II through XII grossly intact. TMs clear. Mucous membranes moist. No adenopathy. Cardiovascular-regular rate and rhythm without murmur or ectopy Lungs-laterally with expiratory wheezes throughout. Patient does have tachypnea. Patient currently on BiPAP as I evaluate him. Abdomen-normoactive bowel sounds, soft, nontender, no rebound or rigidity, no peritoneal signs. Extremities-intact ?4, normal range of motion, normal pulses, atraumatic. +1 edema both lower extremities.] Test Results: [EKG obtained on arrival showed sinus rhythm with nonspecific ST changes with a ventricular rate of 89 bpm. Patient has no hyperkalemic changes on EKG. CBC with differential showed a white count of 12.7, hemoglobin 9, hematocrit 29, platelet 240. Chemistries showed a sodium 135, potassium 5.8, chloride 99, CO2 27, BUN 53, creatinine 6.33 and glucose of 101. Troponin was 0.019. Chest x-ray showed vascular congestion and bilateral effusions however cannot rule out an infiltrate.] Emergency Department Course and Treatment: [My suspicion for pneumonia is low and that has had no fever or productive sputum. Suspect symptoms likely related to fluid overload and COPD.] Treatment Plan: [Admit] Disposition: [Admit] Impression: [CHF COPD exacerbation Chronic renal failure Hyperkalemia] This note was generated with PlayWithation software. It may contain incorrect words, spelling, and punctuation that were not noted in review of the chart prior to signing ED Disposition - Plan for ED Patient: Referrals: Tania Berger, WOOD INSPECTOR-C [Primary Care Provider] -
--- NOTE | 2019-05-25 11:29 | HP.PCM_ITS ---
Problem List (1) Acute respiratory failure with hypoxia Status: Acute (2) ESRD (end stage renal disease) Status: Chronic (3) HLD (hyperlipidemia) Status: Chronic Qualifiers: Hyperlipidemia type: unspecified Qualified Code(s): E78.5 - Hyperlipidemia, unspecified (4) HTN (hypertension) Status: Chronic Qualifiers: Hypertension type: essential hypertension Qualified Code(s): I10 - Essential (primary) hypertension History of Present Illness Date of Admission: 05/25/19 Chief Complaint: Progressive SOB - 1 day The patient is a 68 year old M with multiple comorbidities including ESRD on home hemodialysis, history of recurrent GI bleed, status post capsule endoscopy 2 weeks ago, who was recently seen in the ED on 05/19/19 with hemoglobin of 5.0. Patient was subsequently transferred to [facility] in [place]. He underwent repeat EGDs and had cauterization of lesions. He was discharged home yesterday. In [place], he received multiple blood transfusions as well as in the hospital. He also had dialysis on Tuesday and Tuesday. Patient was found to be progressively short of breath with orthopnea and PND. It was so severe that he could not go for dialysis this morning and had to come to the emergency department. Vitals in the ED showed temp 98.2F, HR 96, BP 148/67, RR 24, Spo2 98% on Bipap. Labs showed WBC 12.7, Hb 9.0, Plt 240, Na 135, K 5.8, BUN 53, Cr 6.33, Minimal elevation of troponins, 0.019, 0.024. Chest x-ray showed vascular congestion with bibasilar atelectasis with small bilateral effusions Past Medical History Past Medical History (Chronic Problems): Chronic Problems (Last Reviewed 05/01/19 @ 08:23 by SEUN Flowers) Chronic atrial fibrillation (Chronic) RAVEN (obstructive sleep apnea) (Chronic) ESRD (end stage renal disease) (Chronic) History of non-ST elevation myocardial infarction (NSTEMI) (Chronic 01/21/11) Stented coronary artery (Chronic) 2003, JASON to circumflex ; 10/13/2009 tsfer from [facility] to [facility], total of 5 bare metal stents to RCA per Dr. Barrientos @ [facility]: 3.5 X 18 Hansard Reporter, followed distally by 3.0 X12 Hansard Reporter to distal RCA;3.5 X 15 Hansard Reporter, followed proximally by 4.0 X 18 Hansard Reporter to Mid RCA; 4.0 X 18 Hansard Reporter to Proximal RCA S/P CABG x 3 (Chronic 01/26/11) [facility] per Dr. Osito Hernandez: NICHOLAS to LAD, reverse SVG to OMbranch of CX, reverse SVG to PDA of RCA. PDA endarterectomy. Status post peripheral artery angioplasty with insertion of stent (Chronic ~2010) Right common iliac, [facility] Atherosclerotic heart disease of [place] coronary artery without angina pectoris (Chronic) 2004, JASON to circumflex ; 10/10/2009 tsfer from [facility] to [facility], total of 5 bare metal stents to RCA; CABG X 3 vessels @ [facility] 01/31/2011 (critical left main and restenosis of RCA stents) Diastolic CHF (Chronic) HLD (hyperlipidemia) (Chronic) HTN (hypertension) (Chronic) PAD (peripheral artery disease) (Chronic) COPD (chronic obstructive pulmonary disease) (Chronic) Tobacco dependence (Chronic) Anemia (Chronic) BPH (benign prostatic hyperplasia) (Chronic) Medical History: Medical History (Last Reviewed 05/01/19 @ 08:23 by Evelyn Thurman NP-C) COPD exacerbation (Acute) J44.1 Acute respiratory failure with hypoxia (Acute) J96.01 ESRD (end stage renal disease) (Chronic) N18.6 History of non-ST elevation myocardial infarction (NSTEMI) (Chronic) Onset Date: 01/21/11 I25.2 Atherosclerotic heart disease of [place] coronary artery without angina pectoris (Chronic) I25.10 2003, JASON to circumflex ; 10/10/2009 tsfer from [facility] to [facility], total of 5 bare metal stents to RCA; CABG X 3 vessels @ [facility] 01/31/2011 (critical left main and restenosis of RCA stents) Diastolic CHF (Chronic) I50.30 HLD (hyperlipidemia) (Chronic) E78.5 HTN (hypertension) (Chronic) I10 PAD (peripheral artery disease) (Chronic) I73.9 COPD (chronic obstructive pulmonary disease) (Chronic) J44.9 Tobacco dependence (Chronic) F17.200 Anemia (Chronic) D64.9 BPH (benign prostatic hyperplasia) (Chronic) N40.0 Allergies irbesartan [From Avapro] Allergy (Severe, Verified 05/01/19 08:04) Blisters zolpidem [From Ambien] Adverse Reaction (Severe, Verified 05/01/19 08:04) made me go crazy, memory loss amoxicillin Adverse Reaction (Intermediate, Verified 05/07/19 19:43) PASSES BLOOD IN STOOL TOLERATES ZOSYN PASSES BLOOD IN STOOL metronidazole [From Flagyl] Adverse Reaction (Verified 05/07/19 19:43) pt states he got palpitations and nose bleed. pt states he got palpitations and nose bleed. Home Medications: Ambulatory Orders Medication Instructions Recorded Albuterol Sulfate 2.5 mg IH Q4H PRN 11/13/18 Alprazolam [Xanax] 1 mg PO TID PRN 11/13/18 Aspirin E.C. [Ecotrin] 81 mg PO QHS 11/13/18 Tamsulosin HCl [Flomax] 0.8 mg PO DAILY 11/13/18 Metoprolol(XL)Succ [Toprol Xl 100 mg PO BID PRN 12/06/18 (Beta Kadi)] ascorbate calcium (vitamin C) 500 500 mg PO DAILY 03/02/19 mg tablet omega-3 fatty acids 1,000 mg 1,000 mg PO DAILY 03/02/19 capsule Cholecalciferol (VIT D3) [Vitamin 1,000 unit PO DAILY 03/26/19 D3] Omeprazole 20 mg PO BID 04/09/19 Rosuvastatin Calcium 40 mg PO QHS 04/09/19 Folic Acid/Vitamin B Comp W-C 1 cap PO DAILY 05/07/19 [Nephrocaps, Renaphro] Ipratropium/Albuterol Sulfate 1 inh INHALATION Q4H PRN 05/07/19 [Iprat-Albut 0.5-3(2.5) mg/3 ml] Surgical History: Surgical History (Last Reviewed 05/01/19 @ 08:23 by MABLE FlowersC) Stented coronary artery (Chronic) Z95.5 2003, JASON to circumflex ; 10/13/2009 tsfer from [facility] to [facility], total of 5 bare metal stents to RCA per Dr. Barrietnos @ [facility]: 3.5 X 18 Hansard Reporter, followed distally by 3.0 X12 Hansard Reporter to distal RCA;3.5 X 15 Hansard Reporter, followed proximally by 4.0 X 18 Hansard Reporter to Mid RCA; 4.0 X 18 Hansard Reporter to Proximal RCA S/P CABG x 3 (Chronic) Onset Date: 01/26/[address] [facility] per Dr. Osito Hernandez: NICHOLAS to LAD, reverse SVG to OMbranch of CX, reverse SVG to PDA of RCA. PDA endarterectomy. Status post peripheral artery angioplasty with insertion of stent (Chronic) Onset Date: ~2010 Z95.820 Right common iliac, [facility] history of surgically created arteriovenous fistula s/p fistulogram Onset Date: ~09/28/18 Surgical History: coronary bypass surgery, tonsillectomy, - Psychiatric History: No pertinent psych hx Smoking Status: Current every day smoker - *Family History Maternal Family History: Family History (Last Reviewed 05/01/19 @ 08:23 by SEUN Flowers) Father CAD (coronary artery disease) Hypertension Kidney disease CVA (cerebral vascular accident) Other Cancer History Items: Heart Disease Paternal Family History: Family History (Last Reviewed 05/01/19 @ 08:23 by SEUN Flowers) Father CAD (coronary artery disease) Hypertension Kidney disease CVA (cerebral vascular accident) Other Cancer History Items: Heart Disease, Hypertension, Renal Disease Review of Systems Constitutional: Reports: Malaise, Weakness, Fatigue. Denies: Anorexia, Chills, Fever, Weight Change Eyes: Denies: Blurred vision, Cataracts, Conjunctivae Inflammation, Pain, Redness, Vision Change HEENT: Denies: Difficulty Hearing, Difficulty Swallowing, Dysphasia, Head Aches, Hearing Changes, Sinus Congestion, Sinus Drainage Cardiovascular: Reports: Light Headedness, Orthopnea, Paroxysmal Noc. Dyspnea. Denies: Chest Pain, Claudication, Palpitations Respiratory: Reports: Shortness of breath at rest, Shortness of breath upon exertion. Denies: Cough, Sputum production Gastrointestinal: Denies: Abdominal Pain, Hematochezia, Nausea, Vomiting Genitourinary: Denies: Dysuria, Frequency Musculoskeletal: Denies: Joint Pain, Joint stiffness, Joint swelling, Joint Tenderness Skin: Denies: Rash, Wounds Neurological: Denies: Numbness, Tingling, Focal weakness Psychiatric: Denies: Anxiety, Depression, Homicidal Ideations, Suicidal Ideations Hematologic/ Lymphatic: Denies: Easy Bruising, Easy Bleeding VTE Information - Inpt Only VTE Present on Admission: No VTE Pharm Prophylaxis ordered?: Yes - Physical Exam General: Alert, Oriented x3, Cooperative, - - in moderate respiratory distress, on Bipap. HEENT: Atraumatic, PERRLA, EOMI, Normocephalic Oral: Moist Mucosa Neck: Supple Lungs: Clear to auscultation, Normal air movement Cardiovascular: Regular rate, Regular Rhythm, Normal S1, Normal S2, No murmurs Abdomen: Bowel Sounds Present, Soft, Non Tender, Non-Distended, No Hepato- splenomegaly Extremities: Edema - Bilateral pedal edema +2 Skin: No rashes Musculoskeletal: No Tenderness to Palpation of Joints or Extremities Lymphatic: No Cervical, Supraclavicular, or Inguinal Adenopathy Neurological: Cranial nerves II-XII grossly intact Psych/Mental Status: Normal Affect, Appropriate Vital Signs Temp Pulse Resp BP Pulse Ox 98.2 F 84 27 H 150/57 H 100 05/25/19 10:31 05/25/19 11:18 05/25/19 11:18 05/25/19 11:10 05/25/19 11:18 Oxygen Delivery Method Bi-pap Weight: 78 kg Body Mass Index (BMI) 27.7 Finger Stick Blood Glucose 200 Laboratory Tests Past 24 Hrs 05/25/19 05/25/19 10:15 10:15 WBC 12.7 H RBC 2.80 L Hgb 9.0 L Hct 28.6 L MCV 102.1 H MCH 32.1 H MCHC 31.5 L RDW Std Deviation 74.4 H RDW Coeff of Eleni 20.2 H Plt Count 240 MPV 9.4 Immature Gran % (Auto) 0.500 Neut % (Auto) 82.9 H Lymph % (Auto) 5.6 L Eddy % (Auto) 6.4 Eos % (Auto) 4.2 Baso % (Auto) 0.4 Absolute Neuts (auto) 10.6 H Absolute Lymphs (auto) 0.71 L Nucleated RBC % 0 Anisocytosis 1+ Sodium 135 L Potassium 5.8 H Chloride 99 Carbon Dioxide 27.0 Anion Gap 9 BUN 53 H Creatinine 6.33 H Estim Creat Clear Calc 10.22 Est GFR (MDRD) Af Amer 11 L Est GFR (MDRD) Non-Af 9 L BUN/Creatinine Ratio 8.4 L Glucose 101 Calcium 9.1 Troponin I 0.019 Assessment/Plan All Active Problems (Last Reviewed 05/01/19 @ 08:23 by Evelyn Thurman, PROPERTY UNDERWRITER-C) COPD exacerbation (Acute) Acute respiratory failure with hypoxia (Acute) 68 year old M with multiple comorbidities including ESRD on home hemodialysis, history of recurrent GI bleed, status post capsule endoscopy 2 weeks ago, who was recently seen in the ED on 05/19/19 with hemoglobin of 5.0. 1. Acute on chronic hypoxic respiratory failure secondary to acute fluid overload Chest X-ray confirms vascular congestion, patient is on BiPAP Plan: Admit to PCU, nephrology consult, fluid removal on dialysis today, incentive spirometer 2. Hyperkalemia, patient will have treatment on dialysis 3. ESRD on hemodialysis, --, dialysis today 4. Leukocytosis, no signs of infection, continue to monitor 5. History of recent recurrent bleed, status post cauterization, stable hemoglobin, continue to monitor 6. Chronic diastolic CHF, currently in acute fluid overload, cannot tell if this is acute diastolic CHF exacerbation or not Patient is having fluid removal in dialysis 7. Hypertension, controlled, continue on home medications 8. DVt PPx - Heparin SC Code Visit Inpatient E&M: 33739 Init Hosp L3
[2019-05-25] MEDS: ALPRAZolam 0.5 MG Tablet 1 MG PO ×2 (13:34→21:36)
--- NOTE | 2019-05-25 14:06 | PCM.CONS.R ---
Problem List (1) ESRD (end stage renal disease) Status: Chronic Consultation - Renal 05/25/19 PCP/ Referring MD: Requesting physician: Dr Duong Primary care physician: SEUN Poe Reason for Consultation:: ESRD - History of Present Illness History of Present Illness: The patient is a 68 year old M who is well-known to us. End-stage renal disease on home hemodialysis training. He had a history of bowel obstruction and has a ileostomy. Has been having issues with bleeding from the colon for at least few weeks now. He was scheduled to have endoscopy with [facility] but ended up in the hospital in [place] with GI bleed again. Apparently endoscopy there showed 4-5 bleeding ulcers which were cauterized. He was discharged from the hospital yesterday apparently he had significant shortness of breath this morning and came into the ER. X-ray is consistent with fluid overload. He does have moderate amount of lower extremity edema. Received multiple blood transfusions during last hospital admission. - Allergies Allergies: Allergies irbesartan [From Avapro] Allergy (Severe, Verified 05/01/19 08:04) Blisters zolpidem [From Ambien] Adverse Reaction (Severe, Verified 05/01/19 08:04) made me go crazy, memory loss amoxicillin Adverse Reaction (Intermediate, Verified 05/07/19 19:43) PASSES BLOOD IN STOOL TOLERATES ZOSYN PASSES BLOOD IN STOOL metronidazole [From Flagyl] Adverse Reaction (Verified 05/07/19 19:43) pt states he got palpitations and nose bleed. pt states he got palpitations and nose bleed. - Current Medications Current Medications: Current Medications Acetaminophen (Tylenol) 650 mg PO Q6H PRN PRN PRN Reason: Mild pain 1-3/Temp > 100.7 F Albuterol/Ipratropium (Duoneb) 3 ml INHALATION Q4HWA.RT JAIME Alprazolam (Xanax) 1 mg PO TID PRN PRN Reason: ANXIETY Last Admin: 05/25/19 13:34 Dose: 1 mg Documented by: Aspirin (Ecotrin) 81 mg PO QHS JAIME Atorvastatin Calcium (Lipitor) 80 mg PO QHS JAIME Cholecalciferol (Vitamin D) 1,000 unit PO DAILY JAIME Heparin Sodium (Porcine) (Heparin Na) 5,000 unit SC Q8 JAIME Metoprolol Succinate (Toprol Xl (Beta Kadi)) 100 mg PO BID [facility] Multivit/Ca Carb/B Cmplx/FA/Prenat (Nephrocaps, Renaphro) 1 capsule PO DAILY [facility] Ondansetron HCl (Zofran) 4 mg IV Q8H PRN PRN PRN Reason: NAUSEA/VOMITING Pantoprazole Sodium (Protonix) 20 mg PO BID [facility] Sodium Chloride () 10 - 40 ml IV UD PRN PRN Reason: SALINE FLUSH Tamsulosin HCl (Flomax) 0.8 mg PO DAILY [facility] - Past Medical History Past Medical History (Chronic Problems): Chronic Problems (Last Reviewed 05/01/19 @ 08:23 by SEUN Flowers) Chronic atrial fibrillation (Chronic) RAVEN (obstructive sleep apnea) (Chronic) ESRD (end stage renal disease) (Chronic) History of non-ST elevation myocardial infarction (NSTEMI) (Chronic 01/21/11) Stented coronary artery (Chronic) 2003, JASON to circumflex ; 10/13/2009 tsfer from [facility] to [facility], total of 5 bare metal stents to RCA per Dr. Barrientos @ [facility]: 3.5 X 18 [place] Writer, followed distally by 3.0 X12 [place] Writer to distal RCA;3.5 X 15 [place] Writer, followed proximally by 4.0 X 18 Grant Writer to Mid RCA; 4.0 X 18 Grant Writer to Proximal RCA S/P CABG x 3 (Chronic 01/26/11) [facility] per Dr. Osito Hernandez: NICHOLAS to LAD, reverse SVG to OMbranch of CX, reverse SVG to PDA of RCA. PDA endarterectomy. 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, JASON to circumflex ; 10/10/2009 tsfer from [facility] to [facility], total of 5 bare metal stents to RCA; CABG X 3 vessels @ [facility] 01/31/2011 (critical left main and restenosis of RCA stents) Diastolic CHF (Chronic) HLD (hyperlipidemia) (Chronic) HTN (hypertension) (Chronic) PAD (peripheral artery disease) (Chronic) COPD (chronic obstructive pulmonary disease) (Chronic) Tobacco dependence (Chronic) Anemia (Chronic) BPH (benign prostatic hyperplasia) (Chronic) - Past Surgical History Surgical History: coronary bypass surgery, tonsillectomy, - - Social History Smoking Status: Current every day smoker - Family History Maternal Family History: Family History (Last Reviewed 05/01/19 @ 08:23 by SEUN Flowers) Father CAD (coronary artery disease) Hypertension Kidney disease CVA (cerebral vascular accident) Other Cancer History Items: Heart Disease Paternal Family History: Family History (Last Reviewed 05/01/19 @ 08:23 by SEUN Flowers) Father CAD (coronary artery disease) Hypertension Kidney disease CVA (cerebral vascular accident) Other Cancer History Items: Heart Disease, Hypertension, Renal Disease Review of Systems Constitutional: Denies: Chills, Fever, Weight Change HEENT: Denies: Head Aches, Sinus Congestion, Sinus Drainage Cardiovascular: Denies: Chest Pain, Palpitations Respiratory: Reports: Shortness of Breath, Shortness of breath at rest. Denies: Cough, Sputum production Gastrointestinal: Denies: Abdominal Pain, Nausea, Vomiting Genitourinary: Denies: Dysuria Musculoskeletal: Denies: Joint Pain, Joint Tenderness Skin: Denies: Rash, Wounds Neurological: Denies: Numbness, Tingling, Focal weakness Psychiatric: Denies: Anxiety, Depression, Homicidal Ideations, Suicidal Ideations Hematologic/ Lymphatic: Denies: Easy Bruising, Easy Bleeding - Physical Exam General: Alert, Oriented x3, Cooperative HEENT: Atraumatic, PERRLA, EOMI, Normocephalic Neck: Supple, No JVD, Negative Carotid Bruits Lungs: Clear to auscultation, Normal air movement Cardiovascular: Regular rate, No murmurs Abdomen: Bowel Sounds Present, Soft, Non Tender Extremities: Capillary Refill Less than 3 Seconds, Edema Skin: No rashes, No breakdown Musculoskeletal: No Tenderness to Palpation of Joints or Extremities Neurological: Cranial nerves II-XII grossly intact Psych/Mental Status: Normal Affect, Appropriate Vital Signs Temp Pulse Resp BP Pulse Ox 98.3 F 82 19 H 149/50 H 100 05/25/19 12:40 05/25/19 12:40 05/25/19 12:56 05/25/19 12:40 05/25/19 12:40 Oxygen Delivery Method Bi-pap Weight: 70.4 kg Body Mass Index (BMI) 24.9 Finger Stick Blood Glucose 200 Laboratory Tests Past 24 Hrs 05/25/19 05/25/19 05/25/19 10:15 10:15 13:40 WBC 12.7 H RBC 2.80 L Hgb 9.0 L Hct 28.6 L MCV 102.1 H MCH 32.1 H MCHC 31.5 L RDW Std Deviation 74.4 H RDW Coeff of Eleni 20.2 H Plt Count 240 MPV 9.4 Immature Gran % (Auto) 0.500 Neut % (Auto) 82.9 H Lymph % (Auto) 5.6 L Stone % (Auto) 6.4 Eos % (Auto) 4.2 Baso % (Auto) 0.4 Absolute Neuts (auto) 10.6 H Absolute Lymphs (auto) 0.71 L Nucleated RBC % 0 Anisocytosis 1+ Sodium 135 L Potassium 5.8 H Chloride 99 Carbon Dioxide 27.0 Anion Gap 9 BUN 53 H Creatinine 6.33 H Estim Creat Clear Calc 10.22 Est GFR (MDRD) Af Amer 11 L Est GFR (MDRD) Non-Af 9 L BUN/Creatinine Ratio 8.4 L Glucose 101 Calcium 9.1 Troponin I 0.019 Pending Assessment/Plan All Active Problems (Last Reviewed 05/01/19 @ 08:23 by Evelyn Thurman, ARMEN-C) COPD exacerbation (Acute) Acute respiratory failure with hypoxia (Acute) End-stage renal disease. Dialysis will be arranged today. Discussed with home hemodialysis staff. He has about 1 more week of home hemodialysis training and then he will be able to do dialysis at home by himself. Discussed with staff about orders. Fluid overload. Will try for 3 to 4 L as tolerated today Anemia. Hemoglobin is in the nines. Just received blood transfusion.
--- NOTE | 2019-05-25 15:50 | CPS ---
Incentive Spirometer placed in pt room. Pt currently unable to do, he is on continuous Bipap.
--- NOTE | 2019-05-25 18:40 | DIALYSIS ---
Hemodialysis x 3.5 hours completed. Pt tolerated tx well. Fluid balance -3400ml. [place] pulled. Hemostasis achieved. Dressing applied. Report given to RAYMOND Denny. Pt stable
[2019-05-25] MEDS: Aspirin E.C. 81 MG Tablet PO (21:36)
[2019-05-25] MEDS: Pantoprazole Sodium 20 MG Tablet PO (21:36)
[2019-05-25] MEDS: Metoprolol(XL)Succ 100 MG Tablet PO (21:36)
[2019-05-26] VITALS (14 sets, daily range): BP systolic 134–143; BP diastolic 70–78; PULSE 73–98; RESP 12–23; TEMP 36.7; O2SAT 93–100
[2019-05-26] MEDS: Ipratropium/Albuterol Sulfate 3 ML AMPUL.NEB INHALATION ×3 (02:50→10:25)
[2019-05-26 07:10] LABS: Absolute Lymphocyte Count 1.02 X10^3/uL (0.83-4.51); Absolute Neutrophil Count 7.8 X10^3/uL (2.0-7.7); Basophil# 0.03 X10^3/uL; Basophil% 0.3 % (0-1); Eosinophil# 0.48 X10^3/uL; Eosinophils% 4.6 % (0-5); Hematocrit 28.4 % (40-54); Hemoglobin 8.5 g/dL (13.0-16.5); Lymphocyte # 1.02 X10^3/ul (4.0); Lymphocyte % 9.8 % (19-41); Mean Corp Hgb Conc 29.9 g/dL (32-36); Mean Corpuscular Volume 103.6 fL (80-94); Mean Platelet Vol. 9.5 fl (6.2-12.0); Monocyte# 1.04 X10^3/uL; NRBC Flagged by Analyzer 0 % (0-5); Neutrophil # 7.79 X10^3/uL (2.7-7.7); Neutrophil % 74.6 % (47-70); POSITIVE MORPHOLOGY YES; Platelet Count 236 K/mm3 (150-450); RBC Distribution Width SD 73.8 fl (35.1-43.9); Red Blood Count 2.74 M/mm3 (4.6-6.2); White Blood Count 10.4 K/mm3 (4.4-11.0)
[2019-05-26 07:20] LABS: Differential Indicated SCAN CRITERIA MET
[2019-05-26 07:44] LABS: Albumin, Serum 2.6 g/dL (3.2-5.0); BUN 30 mg/dL (7-18); BUN/Creat Ratio 7.5 RATIO (10-20); Calcium,Total 8.9 mg/dL (8.5-10.1); Chloride 100 mmol/L (98-107); Creatinine, Serum 3.99 mg/dL (0.70-1.30); EST Glomerular Filtration Rate 16 mL/min (>60); Est Glom Filt Rate - Afr Amer 19 mL/min (>60); Estimated Creatinine Clearance 16.21 ml/min; Glucose 85 mg/dL (74-106); Phosphorus 4.1 mg/dL (2.5-4.9); Potassium 4.5 mmol/L (3.5-5.1); Sodium Level 138 mmol/L (136-145)
--- NOTE | 2019-05-26 07:45 | RAD_ITS ---
STUDY: X-RAY CHEST REASON FOR EXAM: Male, 68 years old. Shortness of breath and cough TECHNIQUE: Single AP portable view of the chest. COMPARISON: 05/25/2019 FINDINGS: EKG leads overlie the chest Lungs are expanded with persistent superimposed interstitial edema, bilateral pleural effusions, and bibasilar atelectasis. No interval change since the previous study. There is no demonstrated pleural abnormality. Sternal cerclage wires and vascular clips are present from a prior sternotomy and coronary artery bypass graft procedure (CABG). Normal mediastinum and justyn. Normal visualized pulmonary arteries. There is atherosclerotic calcification of the aortic arch with tortuosity. There are diffuse degenerative changes of the visualized thoracic spine. Normal visualized ribs, clavicles, and shoulders. There is no demonstrated abnormality of the visualized soft tissue structures of the upper abdomen. RAD/Chest 1 View (Portable) IMPRESSION: No interval change Electronically Signed: Pradeep Marquez MD at 9:41 EDT , Service support ,
--- NOTE | 2019-05-26 11:01 | DIALYSIS ---
Isolated Ultrafiltration completed x 2 hours without complications. Pt tolerated tx well, fluid removed 2,500ml. Vitals stable throughout tx. Verbal report given to RAYMOND Villarreal post tx. next scheduled tx Tuesday05/28/19.
--- NOTE | 2019-05-26 11:26 | PCM.PN.HOSP ---
Vitals/I&O's: Vital Signs Temp Pulse Resp BP Pulse Ox 98.1 F 89 20 H 138/78 H 97 05/26/19 09:20 05/26/19 10:58 05/26/19 10:25 05/26/19 09:20 05/26/19 10:25 Oxygen Flow Rate (L/min) 4 Oxygen Delivery Method Bi-pap Weight: 70.4 kg Body Mass Index (BMI) 24.9 Finger Stick Blood Glucose 200 Intake and Output for Last 24 Hours 05/24/19 05/25/19 05/26/19 23:59 23:59 23:59 Intake Total 240 / 240 Output Total 3400 / 3400 130 / 130 Balance -3400 / -3160 110 / 110 Laboratory Results 05/25/19 13:40: Troponin I 0.024 05/25/19 14:33: Hep Bs Antigen Pending 05/25/19 16:08: Troponin I 0.036 05/26/19 05:34: WBC 10.4, RBC 2.74 L, Hgb 8.5 L, Hct 28.4 L, MCV 103.6 H, MCH 31.0, MCHC 29.9 L, RDW Std Deviation 73.8 H, RDW Coeff of Eleni 20.0 H, Plt Count 236, MPV 9.5, Immature Gran % (Auto) 0.700, Neut % (Auto) 74.6 H, Lymph % (Auto) 9.8 L, Patrick % (Auto) 10.0, Eos % (Auto) 4.6, Baso % (Auto) 0.3, Absolute Neuts (auto) 7.8 H, Absolute Lymphs (auto) 1.02, Nucleated RBC % 0, Differential Comment 05/26/19 05:34: Sodium 138, Potassium 4.5, Chloride 100, Carbon Dioxide 27.0, BUN 30 H, Creatinine 3.99 H, Estim Creat Clear Calc 16.21, Est GFR (MDRD) Af Amer 19 L, Est GFR (MDRD) Non-Af 16 L, BUN/Creatinine Ratio 7.5 L, Glucose 85, Calcium 8.9, Phosphorus 4.1, Albumin 2.6 L Current Medications Acetaminophen (Tylenol) 650 mg PO Q6H PRN PRN PRN Reason: Mild pain 1-3/Temp > 100.7 F Albuterol/Ipratropium (Duoneb) 3 ml INHALATION Q4HWA.RT [facility] Last Admin: 05/26/19 10:25 Dose: 3 ml Documented by: Alprazolam (Xanax) 1 mg PO TID PRN PRN Reason: ANXIETY Last Admin: 05/25/19 21:36 Dose: 1 mg Documented by: Aspirin (Ecotrin) 81 mg PO QHS [facility] Last Admin: 05/25/19 21:36 Dose: 81 mg Documented by: Atorvastatin Calcium (Lipitor) 80 mg PO QHS [facility] Last Admin: 05/25/19 21:39 Dose: Not Given Documented by: Cholecalciferol (Vitamin D) 1,000 unit PO DAILY [facility] Heparin Sodium (Porcine) (Heparin Na) 5,000 unit SC Q8 [facility] Last Admin: 05/26/19 05:05 Dose: Not Given Documented by: Metoprolol Succinate (Toprol Xl (Beta Kadi)) 100 mg PO BID [facility] Last Admin: 05/25/19 21:36 Dose: 100 mg Documented by: Multivit/Ca Carb/B Cmplx/FA/Prenat (Nephrocaps, Renaphro) 1 capsule PO DAILY [facility] Ondansetron HCl (Zofran) 4 mg IV Q8H PRN PRN PRN Reason: NAUSEA/VOMITING Pantoprazole Sodium (Protonix) 20 mg PO BID [facility] Last Admin: 05/25/19 21:36 Dose: 20 mg Documented by: Sodium Chloride () 10 - 40 ml IV UD PRN PRN Reason: SALINE FLUSH Tamsulosin HCl (Flomax) 0.8 mg PO DAILY [facility] Medical Necessity - Tobacco Use Smoking Status: Current every day smoker Assessment/Plan All Active Problems (Last Reviewed 05/01/19 @ 08:23 by Evelyn Thurman NP-C) COPD exacerbation (Acute) Acute respiratory failure with hypoxia (Acute)
[2019-05-26] MEDS: Pantoprazole Sodium 20 MG Tablet PO (11:28)
[2019-05-26] MEDS: Folic Acid/Vitamin B Comp W-C 1 Capsule 1 CAP PO (11:29)
[2019-05-26] MEDS: Tamsulosin HCl 0.4 MG Capsule 0.8 MG PO (11:29)
--- NOTE | 2019-05-26 12:30 | DCINST_ITS ---
- Discharge Diagnoses Reason(s) for Visit for Discharge Instructions: Shortness of breath You will use the following diet at home:: Cardiac, Renal (restricted protein/sodium) Your food should be the consistency of: Regular Your liquids should be the consistency of: Regular/Thin Discharge Activity: Return to Normal Activity Additional Instructions: Continue on low-salt low potassium diet. Continue to weigh yourself every day. Follow-up with home dialysis as scheduled. Note the changes to your omeprazole. Follow-up with your primary care doctor within 2 weeks Allergies/Adverse Reactions: Allergies irbesartan [From Avapro] Allergy (Severe, Verified 05/01/19 08:04) Blisters zolpidem [From Ambien] Adverse Reaction (Severe, Verified 05/01/19 08:04) made me go crazy, memory loss amoxicillin Adverse Reaction (Intermediate, Verified 05/07/19 19:43) PASSES BLOOD IN STOOL TOLERATES ZOSYN PASSES BLOOD IN STOOL metronidazole [From Flagyl] Adverse Reaction (Verified 05/07/19 19:43) pt states he got palpitations and nose bleed. pt states he got palpitations and nose bleed. Medications to take at Discharge Albuterol Sulfate 2.5 mg IH Q4H PRN 11/13/18 Alprazolam [Xanax] 1 mg PO TID PRN 11/13/18 Aspirin E.C. [Ecotrin] 81 mg PO QHS 11/13/18 Tamsulosin HCl [Flomax] 0.8 mg PO DAILY 11/13/18 Metoprolol(XL)Succ [Toprol Xl (Beta Kadi)] 100 mg PO BID PRN 12/06/18 ascorbate calcium (vitamin C) 500 mg tablet 500 mg PO DAILY 03/02/19 omega-3 fatty acids 1,000 mg capsule 1,000 mg PO DAILY 03/02/19 Cholecalciferol (VIT D3) [Vitamin D3] 1,000 unit PO DAILY 03/26/19 Rosuvastatin Calcium 40 mg PO QHS 04/09/19 Folic Acid/Vitamin B Comp W-C [Nephrocaps, Renaphro] 1 cap PO DAILY 05/07/19 Ipratropium/Albuterol Sulfate [Iprat-Albut 0.5-3(2.5) mg/3 ml] 1 inh INHALATION Q4H PRN 05/07/19 Pantoprazole Sodium [Protonix] 40 mg PO BID #60 tab 05/26/19 The following prescriptions were given: Pantoprazole Sodium [Protonix] 40 mg PO BID #60 tab Transmission Status: Pending to [id number] Primary Care Physician: Tania Berger NP-C [Primary Care Provider] - Please follow up with your Primary Care Physician in: within 1-2 weeks Test Results: Test results from this visit will be discussed in further detail at your follow-up appointment, if applicable. Please Follow Up With: Caleb Alaniz MD When: as scheduled Proposed Discharge Date: 05/26/19
--- NOTE | 2019-05-26 12:38 | DS.PCM_ITS ---
Discharge Date and Diagnosis Date of Admission: 05/25/19 Date of Discharge: 05/26/19 - Primary Discharge Diagnosis Acute hypoxic respiratory failure, resolved after dialysis Acute fluid overload, resolved with dialysis Hyperkalemia, resolved Leukocytosis, POA Hyponatremia, hypervolemic, resolved Indeterminate troponins - Secondary Discharge Diagnosis Chronic Problems (Last Reviewed 05/01/19 @ 08:23 by MABLE FlowersC) Chronic atrial fibrillation (Chronic) RAVEN (obstructive sleep apnea) (Chronic) ESRD (end stage renal disease) (Chronic) History of non-ST elevation myocardial infarction (NSTEMI) (Chronic 01/21/11) Stented coronary artery (Chronic) 2003, JASON to circumflex ; 10/13/2009 tsfer from [facility] to [facility], total of 5 bare metal stents to RCA per Dr. Barrientos @ [facility]: 3.5 X 18 Machine Pecan Picker, followed distally by 3.0 X12 Machine Pecan Picker to distal RCA;3.5 X 15 Machine Pecan Picker, followed proximally by 4.0 X 18 Machine Pecan Picker to Mid RCA; 4.0 X 18 Machine Pecan Picker to Proximal RCA S/P CABG x 3 (Chronic 01/26/11) [facility] per Dr. Osito Hernandez: NICHOLAS to LAD, reverse SVG to OMbranch of CX, reverse SVG to PDA of RCA. PDA endarterectomy. Status post peripheral artery angioplasty with insertion of stent (Chronic ~2010) Right common iliac, [facility] Atherosclerotic heart disease of [place] coronary artery without angina pectoris (Chronic) 2003, JASON to circumflex ; 10/10/2009 tsfer from [facility] to [facility], total of 5 bare metal stents to RCA; CABG X 3 vessels @ [facility] 01/31/2011 (critical left main and restenosis of RCA stents) Diastolic CHF (Chronic) HLD (hyperlipidemia) (Chronic) HTN (hypertension) (Chronic) PAD (peripheral artery disease) (Chronic) COPD (chronic obstructive pulmonary disease) (Chronic) Tobacco dependence (Chronic) Anemia (Chronic) BPH (benign prostatic hyperplasia) (Chronic) Hospital Course and Treatment Imaging Results: 05/26/19 07:45 Chest 1 View (Portable) [RAD] Routine Clinical Impression(s) from Imaging Studies Chest X-Ray 05/25/19 09:53 IMPRESSION: Vascular congestion with bibasilar atelectasis and/or infiltrates and small bilateral effusions. These have progressed as compared to prior study. Electronically Signed: Deven Rachanalupisgomez, at 10:09 EDT , Service support , Chest X-Ray 05/26/19 07:45 IMPRESSION: No interval change Electronically Signed: Pradeep Marquez MD at 9:41 EDT , Service support , Nephrology Operations: None Procedures: Dialysis Summary of Care Provided: The patient is a 68 year old M with past medical history of ESRD on home he modialysis now, history of recurrent GI bleed, recently admitted and discharged from [facility], status post capsule endoscopy which was negative. Patient presented to the emergency department on 05/19/19 with hemoglobin of 5.0. He was transfused 1 unit of blood. He was then transferred to [facility]. He subsequently underwent EGD and had cauterization for 5 lesions. He will receive a couple more blood transfusions. He had dialysis while he was there but according to the patient not enough fluid was removed. He was discharged home 1 day before admission. He had complained of progressive shortness of breath with orthopnea and PND. He was due for dialysis on the day of admission but could not make a day. In the emergency department, patient was saturating 98% on BiPAP. His admitting blood work showed WBC 12.7, Hb 9.0, Plt 240, Na 135, K 5.8, BUN 53, Cr 6.33, Minimal elevation of troponins, 0.019, 0.024. He had emergent dialysis done on 05/25/19 with 3.4 L of fluid removed. He had repeat dialysis done on 05/26/19 with 2.5 L removed. All his electrolyte imbalances were corrected after dialysis. Patient was off BiPAP and oxygen completely after dialysis. He was ambulated and evaluated for home oxygen. He did not qualify for home oxygen. We will follow-up with home hemodialysis on Tuesday. Subjective: On the day of discharge, patient was seen and examined. He was off oxygen. [place] much better. Denied any chest pain no dizziness or palpitation - Physical Exam General: Alert, Oriented x3, Cooperative, No apparent distress HEENT: Atraumatic, PERRLA, EOMI, Normocephalic Oral: Moist Mucosa Neck: Supple Lungs: Clear to auscultation, Normal air movement Cardiovascular: Regular rate, Regular Rhythm, Normal S1, Normal S2, Murmur - holosystolic murmur Abdomen: Bowel Sounds Present, Soft, Non Tender, Non-Distended, No Hepato- splenomegaly Extremities: No edema Skin: No rashes, No breakdown Musculoskeletal: No Tenderness to Palpation of Joints or Extremities Lymphatic: No Cervical, Supraclavicular, or Inguinal Adenopathy Neurological: Cranial nerves II-XII grossly intact, Neuro grossly intact Psych/Mental Status: Normal Affect, Appropriate Vital Signs Temp Pulse Resp BP Pulse Ox 98.1 F 78 16 134/78 H 98 05/26/19 11:26 05/26/19 11:29 05/26/19 11:26 05/26/19 11:29 05/26/19 11:26 Oxygen Flow Rate (L/min) 4 Oxygen Delivery Method Nasal Cannula Weight: 70.4 kg Body Mass Index (BMI) 24.9 Finger Stick Blood Glucose 200 Intake and Output for Last 24 Hours 05/24/19 05/25/19 05/26/19 23:59 23:59 23:59 Intake Total 440 / 440 Output Total 3400 / 3400 130 / 130 Balance -3400 / -3160 310 / 310 Laboratory Tests Past 24 Hrs 05/25/19 05/25/19 05/25/19 13:40 14:33 16:08 WBC RBC Hgb Hct MCV MCH MCHC RDW Std Deviation RDW Coeff of Eleni Plt Count MPV Immature Gran % (Auto) Neut % (Auto) Lymph % (Auto) Peach % (Auto) Eos % (Auto) Baso % (Auto) Absolute Neuts (auto) Absolute Lymphs (auto) Nucleated RBC % Differential Comment Sodium Potassium Chloride Carbon Dioxide BUN Creatinine Estim Creat Clear Calc Est GFR (MDRD) Af Amer Est GFR (MDRD) Non-Af BUN/Creatinine Ratio Glucose Calcium Phosphorus Troponin I 0.024 0.036 Albumin Hep Bs Antigen Pending 05/26/19 05/26/19 05:34 05:34 WBC 10.4 RBC 2.74 L Hgb 8.5 L Hct 28.4 L MCV 103.6 H MCH 31.0 MCHC 29.9 L RDW Std Deviation 73.8 H RDW Coeff of Eleni 20.0 H Plt Count 236 MPV 9.5 Immature Gran % (Auto) 0.700 Neut % (Auto) 74.6 H Lymph % (Auto) 9.8 L Peach % (Auto) 10.0 Eos % (Auto) 4.6 Baso % (Auto) 0.3 Absolute Neuts (auto) 7.8 H Absolute Lymphs (auto) 1.02 Nucleated RBC % 0 Differential Comment Sodium 138 Potassium 4.5 Chloride 100 Carbon Dioxide 27.0 BUN 30 H Creatinine 3.99 H Estim Creat Clear Calc 16.21 Est GFR (MDRD) Af Amer 19 L Est GFR (MDRD) Non-Af 16 L BUN/Creatinine Ratio 7.5 L Glucose 85 Calcium 8.9 Phosphorus 4.1 Troponin I Albumin 2.6 L Hep Bs Antigen Discharge Diet: Low fat/ Low Cholesterol, 2000 mg Sodium Diet, Renal Diet Discharge Activity: Return to Normal Activity Home Medications: Medications to take at Discharge Albuterol Sulfate 2.5 mg IH Q4H PRN 11/13/18 Alprazolam [Xanax] 1 mg PO TID PRN 11/13/18 Aspirin E.C. [Ecotrin] 81 mg PO QHS 11/13/18 Tamsulosin HCl [Flomax] 0.8 mg PO DAILY 11/13/18 Metoprolol(XL)Succ [Toprol Xl (Beta Kadi)] 100 mg PO BID PRN 12/06/18 ascorbate calcium (vitamin C) 500 mg tablet 500 mg PO DAILY 03/02/19 omega-3 fatty acids 1,000 mg capsule 1,000 mg PO DAILY 03/02/19 Cholecalciferol (VIT D3) [Vitamin D3] 1,000 unit PO DAILY 03/26/19 Rosuvastatin Calcium 40 mg PO QHS 04/09/19 Folic Acid/Vitamin B Comp W-C [Nephrocaps, Renaphro] 1 cap PO DAILY 05/07/19 Ipratropium/Albuterol Sulfate [Iprat-Albut 0.5-3(2.5) mg/3 ml] 1 inh INHALATION Q4H PRN 05/07/19 Pantoprazole Sodium [Protonix] 40 mg PO BID #60 tab 05/26/19 Following Prescrptions Were Given to Patient: Pantoprazole Sodium [Protonix] 40 mg PO BID #60 tab Transmission Status: Received by [id number] Primary Care Physician: Tania Berger NP-C [Primary Care Provider] - Please follow up with your Primary Care Physician in: within 1-2 weeks Please Follow Up With: Caleb Alaniz MD When: as scheduled Disposition: Home Minutes spent on discharge:: 40 Patient Condition:: Stable Medical Necessity - Tobacco Use Smoking Status: Former smoker Tobacco Use: Non-smoker Meaningful Use Info Meaningful Use Diagnoses (Choose all that apply): None applicable Code Visit Inpatient E&M: 16449 Disch Hosp
[2019-05-28 10:36] LABS: Hepatitis B Surface Antigen Non-Reactive (Nonreactive)
== END 2019-05-26 12:26 | disposition home or self-care (01) ==
LOC: ED 09:58 → PCU 11:34
PROVIDERS: Internal Medicine Nephrology; Admitting Provider Internal Medicine; Emergency Provider Emergency Medicine; Family Provider Nurse Practitioner Family; PCP Nurse Practitioner Family; Referring Provider Internal Medicine; Visit Provider Internal Medicine
DX: J96.21 Acute and chronic respiratory failure with hypoxia (principal); E87.5 Hyperkalemia; E87.1 Hypo-osmolality and hyponatremia; I73.9 Peripheral vascular disease, unspecified; N18.9 Chronic kidney disease, unspecified; I13.0 Hypertensive heart and chronic kidney disease with heart failure and stage 1 through stage 4 chronic kidney disease, or unspecified chronic kidney disease; I25.10 Atherosclerotic heart disease of native coronary artery without angina pectoris; N18.6 End stage renal disease; Z99.2 Dependence on renal dialysis; E78.5 Hyperlipidemia, unspecified; G47.33 Obstructive sleep apnea (adult) (pediatric); I48.2 Chronic atrial fibrillation; I50.32 Chronic diastolic (congestive) heart failure; J44.9 Chronic obstructive pulmonary disease, unspecified; N40.0 Benign prostatic hyperplasia without lower urinary tract symptoms; Z79.899 Other long term (current) drug therapy; Z79.82 Long term (current) use of aspirin; Z87.891 Personal history of nicotine dependence; E87.70 Fluid overload, unspecified; I25.2 Old myocardial infarction; D64.9 Anemia, unspecified
CPT/HCPCS: 36415; 71045; 80048; 80069; 84484; 85025; 87340; 90937; 93005; 94002; 94003; 94640; 97802; 99218; 99285; 99406; A4216; G0257; G0378

== ENCOUNTER 2019-06-03 20:38 | Emergency (ER) | payer MEDICARE, SELFPAY ==
[2019-05-25 12:14] VITALS: BMI 24.9
[2019-06-03 20:38] VITALS: BP 151/61; PULSE 103; RESP 20; TEMP 36.2; O2SAT 96; BMI 23.1
[2019-06-03 20:59] VITALS: O2SAT 95
--- NOTE | 2019-06-03 21:21 | EKG12_ITS ---
Test Reason : SOB Blood Pressure : / mmHG Vent. Rate : 080 BPM Atrial Rate : 166 BPM P-R Int : 000 ms QRS Dur : 100 ms QT Int : 446 ms P-R-T Axes : 000 053 028 degrees QTc Int : 514 ms Atrial fibrillation Minimal voltage criteria for LVH, may be normal variant Nonspecific ST and T wave abnormality Prolonged QT Abnormal ECG Confirmed by VIKY MONTENEGRO, JOS ([id number]), content editor PATSY LINN ([id number]) on 06/05/2019 1:37:33 PM Referred By: LEATHA Confirmed By:JOS SALMON MD
--- NOTE | 2019-06-03 21:22 | ED.VIS.GEN ---
History of Present Illness Chief Complaint: Shortness of Breath Detail of Chief Complaint: Short of breath, cough, right upper chest pain Informant: Patient Onset: Days Current Severity: Mild Maximum Severity: Moderate Narrative: Patient presents with a couple day history of worsening shortness of breath, cough, and right upper chest pain. He does have a history of COPD and uses home oxygen at 2 L. He has a moist sounding cough but is not bringing up sputum. He has not noted fever. Past Medical History - Allergies and Home Meds Allergies/Adverse Reactions: Allergies irbesartan [From Avapro] Allergy (Severe, Verified 06/03/19 20:43) Blisters zolpidem [From Ambien] Adverse Reaction (Severe, Verified 06/03/19 20:43) made me go crazy, memory loss amoxicillin Adverse Reaction (Intermediate, Verified 06/03/19 20:43) PASSES BLOOD IN STOOL TOLERATES ZOSYN PASSES BLOOD IN STOOL metronidazole [From Flagyl] Adverse Reaction (Verified 06/03/19 20:43) pt states he got palpitations and nose bleed. pt states he got palpitations and nose bleed. Primary Care Physician: Tania Berger NP-C [Primary Care Provider] - Prior records reviewed: Yes Past Medical History: - - Reviewed Surgical History: coronary bypass surgery, tonsillectomy, - Lives: Spouse/ Significant Other Smoking Status: Current every day smoker - Family History Maternal Family History: Family History (Last Reviewed 05/01/19 @ 08:23 by SEUN Flowers) Father CAD (coronary artery disease) Hypertension Kidney disease CVA (cerebral vascular accident) Other Cancer Family History: Reports: Heart Disease Paternal Family History: Family History (Last Reviewed 05/01/19 @ 08:23 by SEUN Flowers) Father CAD (coronary artery disease) Hypertension Kidney disease CVA (cerebral vascular accident) Other Cancer Family History: Reports: Heart Disease, Hypertension, Renal Disease Review of Systems General: Denies: Chills, Fever Eyes: Denies: Visual changes - bilaterally ENT: Denies: Bilateral ear pain Cardiovascular: Reports: Chest pain Respiratory: Reports: Dyspnea, Cough Gastrointestinal: Denies: Abdominal pain, Vomiting Musculoskeletal: Denies: Back pain Skin: Denies: Rash Neurological: Denies: Headache Endocrine: Denies: Polydipsia Allergy: Denies: Uticaria Physical Exam Vital Signs/Narrative: Vital Signs Temp Pulse Resp BP Pulse Ox 06/03/19 20:38 97.2 F L 103 H 20 H 151/61 H 96 Inital Vital Signs reviewed: Yes General: Well nourished, Well developed ENT: Moist mucous membranes Neck: Supple Cardiovascular: Regular rate, Regular rhythm Respiratory: - - Mild expiratory wheezes. Abdomen: Soft, Nontender, - - Colostomy in place. Extremities: Edema - 2+ bilateral lower extremity edema that is symmetric. Skin: Normal color Neurological: Alert, Oriented x3 Psychological: Normal affect Diagnostic/Tx/Re-eval Impressions Chest X-Ray 06/03/19 21:25 IMPRESSION: No new focal patchy airspace opacities or pleural effusions COPD/emphysema Stable basilar atelectasis/scar Mild cardiomegaly with cardiac surgery Electronically Signed: Chris Kahn DO at 21:48 EDT Tel , Service support , 06/03/19 21:25 Chest 1 View (Portable) [RAD] Stat Laboratory Results 06/03/19 06/03/19 21:15 21:15 WBC 9.1 RBC 2.24 L Hgb 7.3 L Hct 22.1 L MCV 98.7 H MCH 32.6 H MCHC 33.0 RDW Std Deviation 68.9 H RDW Coeff of Eleni 20.0 H Plt Count 211 MPV 10.1 Immature Gran % (Auto) 0.700 Neut % (Auto) 73.7 H Lymph % (Auto) 10.1 L Dubois % (Auto) 7.2 Eos % (Auto) 8.0 H Baso % (Auto) 0.3 Absolute Neuts (auto) 6.7 Absolute Lymphs (auto) 0.92 Nucleated RBC % 0 Differential Comment SCANNED Sodium 132 L Potassium 3.0 L Chloride 92 L Carbon Dioxide 29.0 Anion Gap 11 BUN 32 H Creatinine 3.95 H Estim Creat Clear Calc 16.38 Est GFR (MDRD) Af Amer 20 L Est GFR (MDRD) Non-Af 16 L BUN/Creatinine Ratio 8.1 L Glucose 111 H Calcium 9.2 Troponin I 0.032 - EKG Initial EKG Interpretation: Atrial Fibrillation - A. fib at [address] change. - Medical Decision Making Patient was given 60 mg of prednisone and breathing treatments. On repeat evaluation he does feel improved. X-ray does not reveal focal infiltrate, but with underlying COPD he will be treated with a course of doxycycline. He does have home oxygen that he can use. He is currently satting 100% on 2 L. Although his potassium was low here, he states that his civil engineering draftsperson told him not to take potassium with his dialysis and he is refusing the medication. Patient has an appointment with his retail cosmetics sales beauty advisor tomorrow. He was advised that these records and x-ray can be reviewed in the office with him. Due to the patient's history of GI bleed with recent cauterization we will not treat with steroids at home. ED Disposition - Plan for ED Patient: Disposition: Home or Assisted Living Diagnosis: COPD exacerbation Instructions: Copd Flare Prescriptions: Doxycycline 100 mg PO BID #20 capsule Referrals: Tania Berger NP-C [Primary Care Provider] - Elie Caicedo MD [STAFF PHYSICIAN] - Keep Liz appointment
--- NOTE | 2019-06-03 21:25 | RAD_ITS ---
STUDY: X-RAY CHEST REASON FOR EXAM: Male, 68 years old. Cough. Shortness of breath. Congestion. Wheezing. TECHNIQUE: Single AP portable view of the chest. COMPARISON: May 26, 2019. FINDINGS: Median sternotomy. CABG. Left-sided vascular stent. Mild cardiomegaly. Pulmonary vascularity within normal limits. Aorta calcified. Stable basilar scar/atelectasis. Mild hazy airspace disease. No significant pleural effusions. COPD/emphysema. Upper abdomen unremarkable. Osseous structures demineralized. No pneumothorax. Degenerative changes of the shoulders and spine. RAD/Chest 1 View (Portable) IMPRESSION: No new focal patchy airspace opacities or pleural effusions COPD/emphysema Stable basilar atelectasis/scar Mild cardiomegaly with cardiac surgery Electronically Signed: Chris Kahn DO at 21:48 EDT Tel , Service support ,
[2019-06-03] MEDS: Ipratropium/Albuterol Sulfate 3 ML AMPUL.NEB INHALATION (21:35)
[2019-06-03] MEDS: MethylPREDNISolone 125 MG/2 ML Vial 60 MG IV (21:38)
[2019-06-03 21:40] LABS: Absolute Lymphocyte Count 0.92 X10^3/uL (0.83-4.51); Absolute Neutrophil Count 6.7 X10^3/uL (2.0-7.7); Basophil# 0.03 X10^3/uL; Basophil% 0.3 % (0-1); Eosinophil# 0.73 X10^3/uL; Hematocrit 22.1 % (40-54); Hemoglobin 7.3 g/dL (13.0-16.5); Lymphocyte # 0.92 X10^3/ul (4.0); Lymphocyte % 10.1 % (19-41); Mean Corpuscular Hgb 32.6 pg (27.0-32.0); Mean Corpuscular Volume 98.7 fL (80-94); Mean Platelet Vol. 10.1 fl (6.2-12.0); Monocyte# 0.65 X10^3/uL; Monocyte% 7.2 % (0-10); NRBC Flagged by Analyzer 0 % (0-5); Neutrophil # 6.69 X10^3/uL (2.7-7.7); Neutrophil % 73.7 % (47-70); POSITIVE MORPHOLOGY YES; Platelet Count 211 K/mm3 (150-450); RBC Distribution Width SD 68.9 fl (35.1-43.9); Red Blood Count 2.24 M/mm3 (4.6-6.2); White Blood Count 9.1 K/mm3 (4.4-11.0)
[2019-06-03] MEDS: Albuterol 2.5 MG/3 ML VIAL.NEB. INHALATION ×2 (21:41→21:48)
[2019-06-03 21:42] VITALS: PULSE 99; RESP 22
[2019-06-03 21:55] LABS: Anion Gap 11 (5-15); BUN 32 mg/dL (7-18); BUN/Creat Ratio 8.1 RATIO (10-20); Calcium,Total 9.2 mg/dL (8.5-10.1); Chloride 92 mmol/L (98-107); Creatinine, Serum 3.95 mg/dL (0.70-1.30); EST Glomerular Filtration Rate 16 mL/min (>60); Est Glom Filt Rate - Afr Amer 20 mL/min (>60); Estimated Creatinine Clearance 16.38 ml/min; Glucose 111 mg/dL (74-106); Sodium Level 132 mmol/L (136-145)
[2019-06-03 22:03] LABS: Differential Indicated SCAN CRITERIA MET
[2019-06-03 22:09] LABS: Differential Comment SCANNED
[2019-06-03 23:19] VITALS: BP 153/66; PULSE 93; RESP 20; O2SAT 99
[2019-06-03] MEDS: Doxycycline 100 MG CAPSULE PO (23:19)
== END 2019-06-03 23:31 | disposition home or self-care (01) ==
PROVIDERS: Emergency Provider Emergency Medicine; Family Provider Nurse Practitioner Family; PCP Nurse Practitioner Family
DX: J44.1 Chronic obstructive pulmonary disease with (acute) exacerbation (principal); I48.91 Unspecified atrial fibrillation; Z99.81 Dependence on supplemental oxygen; Z79.82 Long term (current) use of aspirin; Z79.899 Other long term (current) drug therapy; F17.200 Nicotine dependence, unspecified, uncomplicated
CPT/HCPCS: 71045; 80048; 84484; 85025; 93005; 94640; 96374; 99285; A4216

== ENCOUNTER → 2019-06-04 | Outpatient (CLI) | payer MEDICARE, SELFPAY ==
[2019-05-01 08:03] VITALS: BMI 24.7
[2019-06-03 20:38] VITALS: BMI 23.1
[2019-06-04 13:17] VITALS: PULSE 100; PULSE 80; PULSE 84; PULSE 87; PULSE 92; PULSE 94; PULSE 96; O2SAT 100; O2SAT 97; O2SAT 98; O2SAT 99
--- NOTE | 2019-06-04 14:51 | PCM.PSN.6M ---
PSN 6 Minute Walk Test - 6 Minute Walk Test 6 Minute Walk Test: 6 Minute Walk Test PSN:6-Minute Walk Test Start: 06/04/19 13:16 Freq: Status: Active Protocol: RESP.6MINW Document 06/04/19 13:17 [facility] (Rec: 06/04/19 13:22 [facility] [id number]) 6 Minute Walk Test Date Performed 06/04/19 Time Performed 12:30 Height 5 ft 6 in Weight: 64.864 kg Weight in Pounds 143.[address]: Evelyn Thurman Assistive device used: Walker Pre-test Oxygen Delivery Method Room Air Pulse Ox (%) 99 Pulse Rate (60-100 beats/min) 80 Dyspnea Renee Scale (0-10) 3 Reported Symptoms Increased Work of Breathing 1st minute Oxygen Delivery Method Room Air Pulse Ox (%) 98 Pulse Rate (60-100 beats/min) 87 Dyspnea Renee Scale (0-10) 3 Number of Rests Taken 0 Reported Symptoms Increased Work of Breathing 2nd minute Oxygen Delivery Method Room Air Pulse Ox (%) 97 Pulse Rate (60-100 beats/min) 94 Dyspnea Renee Scale (0-10) 3 Number of Rests Taken 0 Reported Symptoms Increased Work of Breathing 3rd minute Oxygen Delivery Method Room Air Pulse Ox (%) 99 Pulse Rate (60-100 beats/min) 96 Dyspnea Renee Scale (0-10) 4 Number of Rests Taken 0 Reported Symptoms Increased Work of Breathing 4th minute Oxygen Delivery Method Room Air Pulse Ox (%) 98 Pulse Rate (60-100 beats/min) 100 Dyspnea Renee Scale (0-10) 4 Number of Rests Taken 1 Reported Symptoms Increased Work of Breathing 5th minute Oxygen Delivery Method Room Air Pulse Ox (%) 99 Pulse Rate (60-100 beats/min) 92 Dyspnea Renee Scale (0-10) 3 Number of Rests Taken 1 Reported Symptoms Increased Work of Breathing 6th minute Oxygen Delivery Method Room Air Pulse Ox (%) 98 Pulse Rate (60-100 beats/min) 100 Dyspnea Renee Scale (0-10) 3 Number of Rests Taken 1 Reported Symptoms Increased Work of Breathing Post-test Oxygen Delivery Method Room Air Pulse Ox (%) 100 Pulse Rate (60-100 beats/min) 84 Dyspnea Renee Scale (0-10) 3 Reported Symptoms Increased Work of Breathing Full Laps Walked 7 Partial Lap, Number of Tiles Walked 10 Total Distance Walked (ft) 423 - Interpretation Interpretation: The patient was able to ambulate 423 feet over the course of 6 minutes on room air with the assistance of a walker and developed no significant drop in saturations. Patient did have tachycardia as high as 100 bpm and 3 breaks at the end of the walk after complaining of legs throbbing. These findings are consistent with a cardiovascular limitation exercise tolerance. - Recommendations Recommendations: No supplemental oxygen is indicated at this time. However, patient may benefit from evaluation for claudication.
== END | disposition home or self-care (01) ==
LOC: PSN 12:14
PROVIDERS: Family Provider Nurse Practitioner Family; PCP Nurse Practitioner Family; Referring Provider Nurse Practitioner Acute Care; Visit Provider Nurse Practitioner Acute Care
DX: J44.1 Chronic obstructive pulmonary disease with (acute) exacerbation (principal)
CPT/HCPCS: 94618

== ENCOUNTER 2019-07-06 13:26 | Inpatient (IN) | payer MEDICARE, SELFPAY ==
[2019-07-06] VITALS (17 sets, daily range): BP systolic 118–149; BP diastolic 45–80; PULSE 62–100; RESP 15–24; TEMP 36.4–36.8; O2SAT 94–100; BMI 23.6; BMI 24.2
--- NOTE | 2019-07-06 13:52 | ED.RN ---
pt cam to room and immediately requested to use restroom. pt take to rest room by business administration teacher.
--- NOTE | 2019-07-06 14:13 | RAD_ITS ---
STUDY: X-RAY CHEST REASON FOR EXAM: Male, 68 years old. Chest pain. TECHNIQUE: Single AP portable view of the chest. COMPARISON: Comparison is made with prior study dated June 03, 2019. FINDINGS: EKG electrodes are seen. There is evidence of small bilateral pleural effusions with bibasilar infiltration and/or atelectasis superimposed on CHF. Sternal cerclage wires and vascular clips are present from a prior sternotomy and coronary artery bypass graft procedure (CABG). Normal mediastinum and justyn. Normal visualized pulmonary arteries. There is atherosclerotic calcification of the aortic arch with tortuosity. There are diffuse degenerative changes of the visualized thoracic spine. Normal visualized ribs, clavicles, and shoulders. There is no demonstrated abnormality of the visualized soft tissue structures of the upper abdomen. RAD/Chest 1 View (Portable) IMPRESSION: Findings in keeping with the CHF with superimposed bibasilar atelectasis and/or infiltrate with small effusions. Electronically Signed: Deven Hensley, at 14:58 EDT , Service support ,
--- NOTE | 2019-07-06 14:13 | EKG12_ITS ---
Test Reason : SOB Blood Pressure : / mmHG Vent. Rate : 083 BPM Atrial Rate : 083 BPM P-R Int : 184 ms QRS Dur : 094 ms QT Int : 414 ms P-R-T Axes : 000 051 081 degrees QTc Int : 486 ms Sinus rhythm with marked sinus arrhythmia Left ventricular hypertrophy with repolarization abnormality Prolonged QT Abnormal ECG Confirmed by VIKY MONTENEGRO, JOS ([id number]), sound editor PATSY LINN ([id number]) on 07/09/2019 9:16:55 AM Referred By: Kai Mulligan Confirmed By:JOS SALMON MD
[2019-07-06] MEDS: fentaNYL 100 MCG/2 ML Ampul 25 MCG IV (14:53)
[2019-07-06 15:01] LABS: Absolute Lymphocyte Count 0.73 X10^3/uL (0.83-4.51); Absolute Neutrophil Count 4.7 X10^3/uL (2.0-7.7); Basophil# 0.02 X10^3/uL; Basophil% 0.3 % (0-1); Eosinophil# 0.22 X10^3/uL; Eosinophils% 3.5 % (0-5); Hematocrit 19.9 % (40-54); Hemoglobin 6.2 g/dL (13.0-16.5); Lymphocyte # 0.73 X10^3/ul (4.0); Lymphocyte % 11.5 % (19-41); Mean Corp Hgb Conc 31.2 g/dL (32-36); Mean Corpuscular Hgb 34.3 pg (27.0-32.0); Mean Corpuscular Volume 109.9 fL (80-94); Monocyte% 9.5 % (0-10); NRBC Flagged by Analyzer 0 % (0-5); Neutrophil # 4.74 X10^3/uL (2.7-7.7); Neutrophil % 74.7 % (47-70); POSITIVE MORPHOLOGY YES; Platelet Count 138 K/mm3 (150-450); RBC Distribution Width CV 17.8 % (11.6-14.6); RBC Distribution Width SD 71.8 fl (35.1-43.9); Red Blood Count 1.81 M/mm3 (4.6-6.2); White Blood Count 6.3 K/mm3 (4.4-11.0)
[2019-07-06 15:18] LABS: Differential Indicated SCAN CRITERIA MET
[2019-07-06 15:19] LABS: Anion Gap 9 (5-15); BUN 49 mg/dL (7-18); BUN/Creat Ratio 7.9 RATIO (10-20); Calcium,Total 8.4 mg/dL (8.5-10.1); Chloride 93 mmol/L (98-107); Creatinine, Serum 6.23 mg/dL (0.70-1.30); EST Glomerular Filtration Rate 10 mL/min (>60); Est Glom Filt Rate - Afr Amer 12 mL/min (>60); Estimated Creatinine Clearance 10.38 ml/min; Glucose 102 mg/dL (74-106); Magnesium 2.2 mg/dL (1.6-2.6); Potassium 3.7 mmol/L (3.5-5.1); Sodium Level 130 mmol/L (136-145)
[2019-07-06] MEDS: Ipratropium/Albuterol Sulfate 3 ML AMPUL.NEB INHALATION ×2 (16:31→19:32)
--- NOTE | 2019-07-06 17:12 | HP.PCM_ITS ---
<Itz Bennett - Last Filed: 07/06/19 17:12> Problem List (1) Acute blood loss anemia Status: Acute (2) GI bleed Status: Acute (3) COPD (chronic obstructive pulmonary disease) Status: Acute Qualifiers: COPD type: COPD with acute exacerbation Qualified Code(s): J44.1 - Chronic obstructive pulmonary disease with (acute) exacerbation (4) ESRD (end stage renal disease) Status: Chronic (5) S/P CABG x 3 Status: Chronic Comment: [facility] per Dr. Osito Hernandez: NICHOLAS to LAD, reverse SVG to OMbranch of CX, reverse SVG to PDA of RCA. PDA endarterectomy. (6) Diastolic CHF Status: Chronic (7) HTN (hypertension) Status: Chronic (8) PAD (peripheral artery disease) Status: Chronic (9) Tobacco dependence Status: Chronic (10) BPH (benign prostatic hyperplasia) Status: Chronic History of Present Illness Date of Admission: 07/06/19 Chief Complaint: SOB The patient is a 68 year old M with pmhx of ESRD, chronic anemia, CAD with prior CABG, ischemic bowel s/p colostomy, recent GI bleeding requiring cauterization at [facility], prior unremarkable GI capsule at [place], diastolic CHF, PAD, HTN, HLD, BPH, who presented to [facility] ER with c/o SOB. This has been worsening for past several weeks. He was placed on prednisone as an outpatient for his breathing, after which he developed bright red blood in his colostomy. He states that he thinks the prednisone caused this and stopped taking it. He had 2 days of bright red blood in his ostomy bag. He says he has not seen actual red blood in about 2 weeks. Since then it has been black. Further complicating this, this week he was running dialysis at home, and an issue with his machine and started bleeding - he estimates that it was about 1 pint of blood. He continues to be wheezy and SOB. He is also very fatigued. He came to the ER and was found to have a Hgb of 6.2. He also is wheezing but without increased O2 demand. [] Past Medical History Past Medical History (Chronic Problems): Chronic Problems (Last Reviewed 05/01/19 @ 08:23 by Evelyn Thurman NP-C) Chronic atrial fibrillation (Chronic) RAVEN (obstructive sleep apnea) (Chronic) ESRD (end stage renal disease) (Chronic) History of non-ST elevation myocardial infarction (NSTEMI) (Chronic 01/21/11) Stented coronary artery (Chronic) 2003, JAOSN to circumflex ; 10/13/2009 tsfer from [facility] to [facility], total of 5 bare metal stents to RCA per Dr. Barrientos @ [facility]: 3.5 X 18 [employer] Process Engineer, followed distally by 3.0 X12 Senior Chemical Process Engineer to distal RCA;3.5 X 15 Senior Chemical Process Engineer, followed proximally by 4.0 X 18 Senior Chemical Process Engineer to Mid RCA; 4.0 X 18 Senior Chemical Process Engineer to Proximal RCA S/P CABG x 3 (Chronic 01/26/11) [facility] per Dr. Osito Hernandez: NICHOLAS to LAD, reverse SVG to OMbranch of CX, reverse SVG to PDA of RCA. PDA endarterectomy. Status post peripheral artery angioplasty with insertion of stent (Chronic ~2010) Right common iliac, [facility] Atherosclerotic heart disease of [place] coronary artery without angina pectoris (Chronic) 2003, JASON to circumflex ; 10/10/2009 tsfer from [facility] to [facility], total of 5 bare metal stents to RCA; CABG X 3 vessels @ [facility] 01/31/2011 (critical left main and restenosis of RCA stents) Diastolic CHF (Chronic) HLD (hyperlipidemia) (Chronic) HTN (hypertension) (Chronic) PAD (peripheral artery disease) (Chronic) Tobacco dependence (Chronic) Anemia (Chronic) BPH (benign prostatic hyperplasia) (Chronic) Medical History: Medical History (Last Reviewed 05/01/19 @ 08:23 by MABLE FlowersC) COPD exacerbation (Acute) J44.1 Acute respiratory failure with hypoxia (Acute) J96.01 ESRD (end stage renal disease) (Chronic) N18.6 History of non-ST elevation myocardial infarction (NSTEMI) (Chronic) Onset Date: 01/21/11 I25.2 Atherosclerotic heart disease of [place] coronary artery without angina pectoris (Chronic) I25.10 2003, JASON to circumflex ; 10/10/2009 tsfer from [facility] to [facility], total of 5 bare metal stents to RCA; CABG X 3 vessels @ [facility] 01/31/2011 (critical left main and restenosis of RCA stents) Diastolic CHF (Chronic) I50.30 HLD (hyperlipidemia) (Chronic) E78.5 HTN (hypertension) (Chronic) I10 PAD (peripheral artery disease) (Chronic) I73.9 COPD (chronic obstructive pulmonary disease) (Chronic) J44.9 Tobacco dependence (Chronic) F17.200 Anemia (Chronic) D64.9 BPH (benign prostatic hyperplasia) (Chronic) N40.0 Allergies irbesartan [From Avapro] Allergy (Severe, Verified 07/06/19 13:28) Blisters zolpidem [From Ambien] Adverse Reaction (Severe, Verified 07/06/19 13:28) made me go crazy, memory loss amoxicillin Adverse Reaction (Intermediate, Verified 07/06/19 13:28) PASSES BLOOD IN STOOL TOLERATES ZOSYN PASSES BLOOD IN STOOL metronidazole [From Flagyl] Adverse Reaction (Verified 07/06/19 13:28) pt states he got palpitations and nose bleed. pt states he got palpitations and nose bleed. Home Medications: Ambulatory Orders Medication Instructions Recorded Albuterol Sulfate 2.5 mg IH Q4H PRN 11/13/18 Alprazolam [Xanax] 0.5 mg PO TID PRN PRN 11/13/18 Aspirin E.C. [Ecotrin] 81 mg PO QHS 11/13/18 Tamsulosin HCl [Flomax] 0.8 mg PO DAILY 11/13/18 ascorbate calcium (vitamin C) 500 500 mg PO DAILY 03/02/19 mg tablet Cholecalciferol (VIT D3) [Vitamin 1,000 unit PO DAILY 03/26/19 D3] Rosuvastatin Calcium 40 mg PO QHS 04/09/19 Folic Acid/Vitamin B Comp W-C 1 cap PO DAILY 05/07/19 [Nephrocaps, Renaphro] Cyanocobalamin (Vitamin B-12) 2,500 mcg PO DAILY 07/06/19 [Vitamin B12] Metoprolol Succinate [Toprol Xl] 50 - 100 mg PO BID PRN PRN 07/06/19 Omeprazole 40 mg PO BID 07/06/19 Surgical History: Surgical History (Last Reviewed 05/01/19 @ 08:23 by Evelyn Thurman, [employer]-C) Stented coronary artery (Chronic) Z95.5 2004, JASON to circumflex ; 10/13/2009 tsfer from [facility] to [facility], total of 5 bare metal stents to RCA per Dr. Barrientos @ [employer]: 3.5 X 18 Senior Chemical Process Engineer, followed distally by 3.0 X12 Senior Chemical Process Engineer to distal RCA;3.5 X 15 Senior Chemical Process Engineer, followed proximally by 4.0 X 18 Senior Chemical Process Engineer to Mid RCA; 4.0 X 18 Senior Chemical Process Engineer to Proximal RCA S/P CABG x 3 (Chronic) Onset Date: 01/26/[address] [facility] per Dr. Osito Hernandez: NICHOLAS to LAD, reverse SVG to OMbranch of CX, reverse SVG to PDA of RCA. PDA endarterectomy. Status post peripheral artery angioplasty with insertion of stent (Chronic) Onset Date: ~2010 Z95.820 Right common iliac, [facility] history of surgically created arteriovenous fistula s/p fistulogram Onset Date: ~09/28/18 Surgical History: coronary bypass surgery, tonsillectomy, - Psychiatric History: No pertinent psych hx Smoking Status: Former smoker Tobacco Use: Cigarettes Alcohol: None Drugs: None - *Family History Maternal Family History: Family History (Last Reviewed 05/01/19 @ 08:23 by SEUN Flowers) Father CAD (coronary artery disease) Hypertension Kidney disease CVA (cerebral vascular accident) Other Cancer History Items: Heart Disease Paternal Family History: Family History (Last Reviewed 05/01/19 @ 08:23 by SEUN Flowers) Father CAD (coronary artery disease) Hypertension Kidney disease CVA (cerebral vascular accident) Other Cancer History Items: Heart Disease, Hypertension, Renal Disease Review of Systems Constitutional: Denies: Chills, Fever, Weight Change HEENT: Denies: Head Aches, Sinus Congestion, Sinus Drainage Cardiovascular: Denies: Chest Pain, Palpitations Respiratory: Reports: Shortness of Breath, Wheezing. Denies: Cough, Shortness of breath at rest, Shortness of breath upon exertion, Sputum production Gastrointestinal: Reports: - - red and black output from colostomy.. Denies: Abdominal Pain, Nausea, Vomiting Genitourinary: Denies: Dysuria Musculoskeletal: Denies: Joint Pain, Joint Tenderness Skin: Denies: Rash, Wounds Neurological: Denies: Numbness, Tingling, Focal weakness Psychiatric: Denies: Anxiety, Depression, Homicidal Ideations, Suicidal Ideations Hematologic/ Lymphatic: Denies: Easy Bruising, Easy Bleeding VTE Information - Inpt Only VTE Present on Admission: No VTE Mechan Device Prophylaxis: None VTE Pharm Prophylaxis ordered?: Yes Patient Problems: Active and Suspected Problems (Last Reviewed 05/01/19 @ 08:23 by MABLE FlowersC) Acute blood loss anemia (Acute) GI bleed (Acute) - Physical Exam General: Alert, Oriented x3, Cooperative HEENT: Atraumatic, PERRLA, EOMI, Normocephalic Neck: Supple, No JVD, Negative Carotid Bruits Lungs: Clear to auscultation, Normal air movement Cardiovascular: Regular rate, No murmurs Abdomen: Bowel Sounds Present, Soft, Non Tender Extremities: No edema, Capillary Refill Less than 3 Seconds Skin: No rashes, No breakdown Musculoskeletal: No Tenderness to Palpation of Joints or Extremities Neurological: Cranial nerves II-XII grossly intact Psych/Mental Status: Normal Affect, Appropriate, Alert and oriented to time, place, person, mood and affect Vital Signs Temp Pulse Resp BP Pulse Ox 97.6 F L 88 20 H 149/67 H 99 07/06/19 16:51 07/06/19 16:51 07/06/19 16:51 07/06/19 16:51 07/06/19 16:51 Oxygen Delivery Method Room Air Weight: 146 lb Body Mass Index (BMI) 23.6 Finger Stick Blood Glucose 200 Laboratory Tests Past 24 Hrs 07/06/19 07/06/19 07/06/19 14:50 14:50 16:43 WBC 6.3 RBC 1.81 L Hgb 6.2 L Hct 19.9 L MCV 109.9 H MCH 34.3 H MCHC 31.2 L RDW Std Deviation 71.8 H RDW Coeff of Eleni 17.8 H Plt Count 138 L MPV 10.0 Immature Gran % (Auto) 0.500 Neut % (Auto) 74.7 H Lymph % (Auto) 11.5 L Rincon % (Auto) 9.5 Eos % (Auto) 3.5 Baso % (Auto) 0.3 Absolute Neuts (auto) 4.7 Absolute Lymphs (auto) 0.73 L Nucleated RBC % 0 Differential Comment Sodium 130 L Potassium 3.7 Chloride 93 L Carbon Dioxide 28.0 Anion Gap 9 BUN 49 H Creatinine 6.23 H Estim Creat Clear Calc 10.38 Est GFR (MDRD) Af Amer 12 L Est GFR (MDRD) Non-Af 10 L BUN/Creatinine Ratio 7.9 L Glucose 102 Calcium 8.4 L Magnesium 2.2 Troponin I 0.042 Blood Type Pending Antibody Screen Pending Crossmatch See Detail Assessment/Plan All Active Problems (Last Reviewed 05/01/19 @ 08:23 by Evelyn Thurman NP-C) Acute blood loss anemia (Acute) GI bleed (Acute) COPD exacerbation (Acute) Acute respiratory failure with hypoxia (Acute) COPD (chronic obstructive pulmonary disease) (Acute) 1. Acute blood loss anemia - 2/2 GI bleed and Dialysis complication - two weeks prior with red blood in colostomy, since then black blood - black in bag in ER. Hgb 6.2 - will receive 2 units PRBC now. Hold aspirin. Continue PPI. Lost about 1 pint from bleeding during dialysis too. ER contacted Dr. Henderson who did not feel endoscopy here was indicated. The patient had an upper scope in March of this year here which did not show any active bleeding. He later had a capsule endoscopy in [place] that was unremarkable. He then went to [facility] after that and states that he had bleeding sights on endoscopy which were cauterized: 6 in his colon and 4 in his stomach. He does not want re-evaluated at [facility] or [place]. We have recommended that for a complete workup and treatment that he needs evaluated by a GI doctor at an institution that has this available, and explained the risk that if he develops an acute bleed there would be a delay in getting him somewhere to receive treatment, which could worsen his outcome and/or lead to . He is insistent on staying here to receive blood. H 2. 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 3. COPD with mild acute exacerbation - resume prednisone. Provide scheduled duonebs and prn albuterol. Very wheezy on exam. Some CHF on CXR, doubt acute exacerbation. 4. Chronic diastolic CHF - continue dialysis. 5. CAD with prior CABG x 3 - Hold aspirin. continue metoprolol, statin 6. HTN/HLD - as per #5 7. BPH - flomax DVT ppx: SCDs DC planning: Watch for further red blood and recheck H/H after 2 units transfused. Pt aware that if he rebleeds he will need transfer. This patient was seen by Itz Bennett PA-C under the supervision of Dr. Mulligan. <Kai Mulligan - Last Filed: 07/06/19 18:06> History of Present Illness The patient is a 68 year old M [] Past Medical History Medical History: Medical History (Last Reviewed 05/01/19 @ 08:23 by SEUN Flowers) COPD exacerbation (Acute) J44.1 Acute respiratory failure with hypoxia (Acute) J96.01 ESRD (end stage renal disease) (Chronic) N18.6 History of non-ST elevation myocardial infarction (NSTEMI) (Chronic) Onset Date: 01/21/11 I25.2 Atherosclerotic heart disease of [place] coronary artery without angina pectoris (Chronic) I25.10 2003, JASON to circumflex ; 10/10/2009 tsfer from [facility] to [facility], total of 5 bare metal stents to RCA; CABG X 3 vessels @ [facility] 01/31/2011 (critical left main and restenosis of RCA stents) Diastolic CHF (Chronic) I50.30 HLD (hyperlipidemia) (Chronic) E78.5 HTN (hypertension) (Chronic) I10 PAD (peripheral artery disease) (Chronic) I73.9 COPD (chronic obstructive pulmonary disease) (Chronic) J44.9 Tobacco dependence (Chronic) F17.200 Anemia (Chronic) D64.9 BPH (benign prostatic hyperplasia) (Chronic) N40.0 Allergies irbesartan [From Avapro] Allergy (Severe, Verified 07/06/19 13:28) Blisters zolpidem [From Ambien] Adverse Reaction (Severe, Verified 07/06/19 13:28) made me go crazy, memory loss amoxicillin Adverse Reaction (Intermediate, Verified 07/06/19 13:28) PASSES BLOOD IN STOOL TOLERATES ZOSYN PASSES BLOOD IN STOOL metronidazole [From Flagyl] Adverse Reaction (Verified 07/06/19 13:28) pt states he got palpitations and nose bleed. pt states he got palpitations and nose bleed. Surgical History: Surgical History (Last Reviewed 05/01/19 @ 08:23 by SEUN Flowers) Stented coronary artery (Chronic) Z95.5 2003, JASON to circumflex ; 10/13/2009 tsfer from [facility] to [facility], total of 5 bare metal stents to RCA per Dr. Barrientos @ [employer]: 3.5 X 18 Senior Chemical Process Engineer, followed distally by 3.0 X12 Senior Chemical Process Engineer to distal RCA;3.5 X 15 Senior Chemical Process Engineer, followed proximally by 4.0 X 18 Senior Chemical Process Engineer to Mid RCA; 4.0 X 18 Senior Chemical Process Engineer to Proximal RCA S/P CABG x 3 (Chronic) Onset Date: 01/26/[address] [facility] per Dr. Osito Hernandez: NICHOLAS to LAD, reverse SVG to OMbranch of CX, reverse SVG to PDA of RCA. PDA endarterectomy. Status post peripheral artery angioplasty with insertion of stent (Chronic) Onset Date: ~2010 Z95.820 Right common iliac, [facility] history of surgically created arteriovenous fistula s/p fistulogram Onset Date: ~09/28/18 - *Family History Maternal Family History: Family History (Last Reviewed 05/01/19 @ 08:23 by SEUN Flowers) Father CAD (coronary artery disease) Hypertension Kidney disease CVA (cerebral vascular accident) Other Cancer Paternal Family History: Family History (Last Reviewed 05/01/19 @ 08:23 by SEUN Flowers) Father CAD (coronary artery disease) Hypertension Kidney disease CVA (cerebral vascular accident) Other Cancer - Physical Exam Vital Signs Temp Pulse Resp BP Pulse Ox 98.2 F 87 20 H 133/80 H 100 07/06/19 17:42 07/06/19 17:42 07/06/19 17:42 07/06/19 17:42 07/06/19 17:42 Oxygen Delivery Method Room Air Weight: 150 lb Body Mass Index (BMI) 24.2 Finger Stick Blood Glucose 200 Laboratory Tests Past 24 Hrs 07/06/19 07/06/19 07/06/19 14:50 14:50 16:43 WBC 6.3 RBC 1.81 L Hgb 6.2 L Hct 19.9 L MCV 109.9 H MCH 34.3 H MCHC 31.2 L RDW Std Deviation 71.8 H RDW Coeff of Eleni 17.8 H Plt Count 138 L MPV 10.0 Immature Gran % (Auto) 0.500 Neut % (Auto) 74.7 H Lymph % (Auto) 11.5 L Rincon % (Auto) 9.5 Eos % (Auto) 3.5 Baso % (Auto) 0.3 Absolute Neuts (auto) 4.7 Absolute Lymphs (auto) 0.73 L Nucleated RBC % 0 Differential Comment Sodium 130 L Potassium 3.7 Chloride 93 L Carbon Dioxide 28.0 Anion Gap 9 BUN 49 H Creatinine 6.23 H Estim Creat Clear Calc 10.38 Est GFR (MDRD) Af Amer 12 L Est GFR (MDRD) Non-Af 10 L BUN/Creatinine Ratio 7.9 L Glucose 102 Calcium 8.4 L Magnesium 2.2 Troponin I 0.042 Blood Type A NEGATIVE Antibody Screen NEGATIVE Crossmatch See Detail Code Visit Addendum: Dr. Mulligan I personally examined the patient and reviewed the chart. I agree with the above. 68-year-old male with end-stage renal disease on home dialysis 5 days a week, as well as coronary artery disease with a prior CABG and stents as well as multiple episodes of GI bleeding that required intervention at at [facility] in [place] from what sounds like he had multiple AVMs that were found on endoscopy there. He states that he did have some bright red blood in his ostomy appliance a few weeks ago nothing since then, and he has been having on and off dark stools for the last several days as well. He states however that he thinks that he is short of breath and lightheaded with his symptomatic anemia today because he had an issue with his dialysis access at home a few days ago and he thinks that he lost probably about a pint of blood based on what was on the floor and what was in the machine that he could get back into himself. I disc ussed with him the risk of staying at this institution as there is no endoscopic intervention or evaluation that can be performed to treat his AVMs as they have never been seen on a scope here, he understands that if anything were to happen he would need to be transferred to a tertiary care center and that he could in the process since he is decided to stay at this institution. Both he and the family member in the room were okay with this plan. We will admit for Finley to the PCU for a blood transfusion. We will also consult nephrology for possible dialysis as he missed his dialysis session today. Given that his 2 units of packed red blood cells will likely take several hours to be transfused, will recheck a CBC in the morning. Also of note he was started on steroids as an outpatient by his PCP for a COPD exacerbation, he is fairly wheezy on exam and therefore we will continue with Solu-Medrol and duo nebs. We will also continue with a PPI IV daily. OBSV E&M: 42313 Initial observation care L3
--- NOTE | 2019-07-06 17:12 | ED.DCSUM_ITS ---
- ER Visit Summary Date of Service: 07/06/19 Chief Complaint: Shortness of breath History of Present Illness: The patient is a 68 M who presents with shortness of breath, gradual onset over several days. Worse with exertion. He is also having muscle cramps in his hands and bilateral legs. He is on home dialysis. He is compliant. Last treatment was yesterday. He also has a history of GI bleeding. He has been evaluated extensively with scopes and capsule endoscopy. He has a history of AVMs. He had some intermittent blood from his stoma, but none currently today. He recently lost some blood during a dialysis session. He is not on blood thinners. Physical Examination: Afebrile and vital signs unremarkable except for heart rate of 100 and respiratory rate of 22. Patient is alert and oriented. No acute distress. Depressed mood and flat affect. Skin appears unremarkable. Heart regular. Lungs clear. Abdomen soft. Fistula and stoma site appear unremarkable. Test Results: EKG showed sinus rhythm at a rate of 83. LVH and QTC of 46. Chest x-ray showed findings concerning for CHF. Hemoglobin 6.2 and platelets 138. Sodium 130. BUN 49 and creatinine 6.23. Troponin 0 0.042. Magnesium 2.2. Emergency Department Course and Treatment: Patient was placed on a monitor. Treated with DuoNeb and fentanyl for his chronic pain and COPD symptoms. His work-up indicated anemia. I suspect this may be related to his history of GI bleeding or his blood loss with dialysis. He is not experiencing any bleeding now. I spoke with his surgeon, Dr. Henderson who did not feel that the patient would benefit from additional endoscopy. He advised transfer if the patient has continued bleeding. The patient is not experiencing any bleeding today. I spoke with the hospitalist who will admit for further care. Will transfuse 2 units. Patient gave verbal consent. Treatment Plan: 1. Transfuse, monitor Disposition: Admission to PCU Impression: 1. Anemia 2. End-stage renal disease This note was generated with [employer] dictation software. It may contain incorrect words, spelling, and punctuation that were not noted in review of the chart prior to signing
[2019-07-06] MEDS: ALPRAZolam 0.5 MG Tablet PO (19:04)
[2019-07-06] MEDS: cycloBENZAPRine HCl 10 MG Tablet 5 MG PO (21:01)
[2019-07-06] MEDS: Atorvastatin Calcium 80 MG Tablet PO (21:02)
[2019-07-06] MEDS: Acetaminophen 325 MG Tablet 650 MG PO (23:51)
[2019-07-06] MEDS: 0.9% NaCl Peripheral Flush Adult/Peds IV (23:53)
[2019-07-07] VITALS (15 sets, daily range): BP systolic 116–149; BP diastolic 58–76; PULSE 79–97; RESP 12–22; TEMP 36.3–36.7; O2SAT 95–99
[2019-07-07] MEDS: Ipratropium/Albuterol Sulfate 3 ML AMPUL.NEB INHALATION ×3 (01:18→11:28)
[2019-07-07 02:01] LABS: Base Excess -1 mmol/L (-2 to +2); Bicarbonate 23.4 mmol/L (22-26); Blood Gas Specimen Type ART; O2 Delivery Device Nasal Can; PO2 115 mmHG (75-100); SITE R Brachial; SO2 99 % (95-99); Total Carbon Dioxide 25 mmol/L; pCO2 35.5 mmHg (35-45); pH 7.43 (7.35-7.45)
--- NOTE | 2019-07-07 03:08 | CPS ---
AEROPLANE PILOT was called for aerosol tx @ 0108. Upon entering room, pt. was hunched over in the tripoding position expressing increased work of breathing. B.S. were expiratory wheezes throughout. Breathing tx was given. After 10 mins pt. was still expressing increased WOB. Called hospitalist with recommendation that pt. may require BiPAP due to pulmonary hx. ABG order was verbally given to this AEROPLANE PILOT by . ABG results were within normal ranges with O2 slightly high on 5L NC. Talked to pt. and he said that he was still having labored respirations and was having trouble catching his breath. Placed pt. on BiPAP to help support breathing. Settings 12/8 RR 12 30%. Pt. expressed that he wanted to be placed on 18/8 or 18/10 per his previous visits. AEROPLANE PILOT explained that BiPAP would actually not be beneficial at these previous settings due to ABG results shown before starting BiPAP. Pt. agreed that 12/8 would be beneficial after hearing this. would also like an ABG after 1 hour on BiPAP to monitor CO2 levels due to normal ABG results previously.
[2019-07-07 03:41] LABS: Base Excess 0 mmol/L (-2 to +2); Bicarbonate 24.3 mmol/L (22-26); Blood Gas Specimen Type ART; EPAP 8; FI02 30; IPAP 12; PO2 121 mmHG (75-100); RR 12; SITE R Brachial; SO2 99 % (95-99); Time Given 330; Total Carbon Dioxide 25 mmol/L; pCO2 36.9 mmHg (35-45); pH 7.43 (7.35-7.45)
[2019-07-07] MEDS: cycloBENZAPRine HCl 10 MG Tablet 5 MG PO ×2 (05:06→11:44)
[2019-07-07] MEDS: 0.9% NaCl Peripheral Flush Adult/Peds IV ×2 (05:07→09:20)
[2019-07-07 07:17] LABS: Absolute Lymphocyte Count 0.25 X10^3/uL (0.83-4.51); Absolute Neutrophil Count 4.8 X10^3/uL (2.0-7.7); Eosinophil# 0.01 X10^3/uL; Eosinophils% 0.2 % (0-5); Hematocrit 26.9 % (40-54); Hemoglobin 8.4 g/dL (13.0-16.5); Lymphocyte # 0.25 X10^3/ul (4.0); Lymphocyte % 4.8 % (19-41); Mean Corp Hgb Conc 31.2 g/dL (32-36); Mean Corpuscular Hgb 31.5 pg (27.0-32.0); Mean Corpuscular Volume 100.7 fL (80-94); Mean Platelet Vol. 10.2 fl (6.2-12.0); Monocyte# 0.06 X10^3/uL; Monocyte% 1.2 % (0-10); NRBC Flagged by Analyzer 0 % (0-5); Neutrophil # 4.82 X10^3/uL (2.7-7.7); Neutrophil % 93.2 % (47-70); POSITIVE DIFFERENTIAL YES; POSITIVE MORPHOLOGY YES; Platelet Count 136 K/mm3 (150-450); RBC Distribution Width CV 22.4 % (11.6-14.6); RBC Distribution Width SD 79.5 fl (35.1-43.9); Red Blood Count 2.67 M/mm3 (4.6-6.2); White Blood Count 5.2 K/mm3 (4.4-11.0)
[2019-07-07 07:35] LABS: Differential Indicated SCAN CRITERIA MET
[2019-07-07 07:38] LABS: Anion Gap 13 (5-15); BUN 58 mg/dL (7-18); BUN/Creat Ratio 8.4 RATIO (10-20); Calcium,Total 8.3 mg/dL (8.5-10.1); Chloride 94 mmol/L (98-107); Creatinine, Serum 6.89 mg/dL (0.70-1.30); EST Glomerular Filtration Rate 9 mL/min (>60); Est Glom Filt Rate - Afr Amer 10 mL/min (>60); Estimated Creatinine Clearance 9.39 ml/min; Glucose 150 mg/dL (74-106); Sodium Level 132 mmol/L (136-145)
[2019-07-07] MEDS: Tamsulosin HCl 0.4 MG Capsule 0.8 MG PO (08:23)
[2019-07-07 08:24] LABS: Anisocytosis 1+
[2019-07-07] MEDS: Folic Acid/Vitamin B Comp W-C 1 Capsule 1 CAP PO (09:19)
--- NOTE | 2019-07-07 10:58 | PCM.DC ---
- Discharge Diagnoses Current Active Problems: Current Active and Chronic Problems (Last Reviewed 05/01/19 @ 08:23 by SEUN Flowers) Acute blood loss anemia (Acute) GI bleed (Acute) You will use the following diet at home:: Renal (restricted protein/sodium) Your food should be the consistency of: Regular Your liquids should be the consistency of: Regular/Thin Discharge Activity: Return to Normal Activity Additional Instructions: No aspirin until further advised by the Surgeon or house repairer who did your previous procedure at [facility]. Allergies/Adverse Reactions: Allergies irbesartan [From Avapro] Allergy (Severe, Verified 07/06/19 13:28) Blisters zolpidem [From Ambien] Adverse Reaction (Severe, Verified 07/06/19 13:28) made me go crazy, memory loss amoxicillin Adverse Reaction (Intermediate, Verified 07/06/19 13:28) PASSES BLOOD IN STOOL TOLERATES ZOSYN PASSES BLOOD IN STOOL metronidazole [From Flagyl] Adverse Reaction (Verified 07/06/19 13:28) pt states he got palpitations and nose bleed. pt states he got palpitations and nose bleed. Medications to take at Discharge Albuterol Sulfate 2.5 mg IH Q4H PRN 11/13/18 Alprazolam [Xanax] 0.5 mg PO TID PRN PRN 11/13/18 Tamsulosin HCl [Flomax] 0.8 mg PO DAILY 11/13/18 ascorbate calcium (vitamin C) 500 mg tablet 500 mg PO DAILY 03/02/19 Cholecalciferol (VIT D3) [Vitamin D3] 1,000 unit PO DAILY 03/26/19 Rosuvastatin Calcium 40 mg PO QHS 04/09/19 Folic Acid/Vitamin B Comp W-C [Nephrocaps, Renaphro] 1 cap PO DAILY 05/07/19 Cyanocobalamin (Vitamin B-12) [Vitamin B12] 2,500 mcg PO DAILY 07/06/19 Metoprolol Succinate [Toprol Xl] 50 - 100 mg PO BID PRN PRN 07/06/19 Omeprazole 40 mg PO BID 07/06/19 Guaifenesin Dm [Robitussin Dm] 10 ml PO Q6H PRN PRN #1 bottle 07/07/19 Prednisone 10 mg PO UD #30 tab 07/07/19 The following prescriptions were given: Prednisone 10 mg PO UD #30 tab Prescription Printed Guaifenesin Dm [Robitussin Dm] 10 ml PO Q6H PRN PRN #1 bottle PRN Reason: Cough Prescription Printed Primary Care Physician: Tania Berger NP-C [Primary Care Provider] - Please follow up with your Primary Care Physician in: 1-2 weeks Test Results: Test results from this visit will be discussed in further detail at your follow-up appointment, if applicable. Please Follow Up With: You Own Surgeon - [facility] When: 1 week Please Follow Up With: Caleb Alaniz MD When: as directed Proposed Discharge Date: 07/07/19
[2019-07-07] MEDS: guaiFENesin 1,200 MG Tablet 1200 MG PO (11:44)
[2019-07-07 12:28] LABS: Hematocrit 27.5 % (40-54); Hemoglobin 8.6 g/dL (13.0-16.5)
--- NOTE | 2019-07-07 13:00 | NURSING ---
Discharge teaching completed. Questions answered. Patient and voice understanding of same.
--- NOTE | 2019-07-07 13:03 | DS.PCM_ITS ---
<Itz Bennett - Last Filed: 07/07/19 13:03> Discharge Date and Diagnosis Date of Admission: 07/06/19 Date of Discharge: 07/07/19 - Primary Discharge Diagnosis Active and Suspected Problems (Last Reviewed 05/01/19 @ 08:23 by Evelyn Thurman NP-Izabel) Acute blood loss anemia (Acute) GI bleed (Acute) Bleeding from dialysis port Acute mild COPD exacerbation Chronic diastolic congestive heart failure with no exacerbation End-stage renal disease CAD with prior CABG x3 Hypertension hyperlipidemia BPH - Secondary Discharge Diagnosis Chronic Problems (Last Reviewed 05/01/19 @ 08:23 by Evelyn Thurman NP-C) Chronic atrial fibrillation (Chronic) RAVEN (obstructive sleep apnea) (Chronic) ESRD (end stage renal disease) (Chronic) History of non-ST elevation myocardial infarction (NSTEMI) (Chronic 01/21/11) Stented coronary artery (Chronic) 2003, JASON to circumflex ; 10/13/2009 tsfer from [facility] to [facility], total of 5 bare metal stents to RCA per Dr. Barrientos @ [facility]: 3.5 X 18 Pipe Cutter, followed distally by 3.0 X12 Pipe Cutter to distal RCA;3.5 X 15 Pipe Cutter, followed proximally by 4.0 X 18 Pipe Cutter to Mid RCA; 4.0 X 18 Pipe Cutter to Proximal RCA S/P CABG x 3 (Chronic 01/26/11) [facility] per Dr. Osito Hernandez: NICHOLAS to LAD, reverse SVG to OMbranch of CX, reverse SVG to PDA of RCA. PDA endarterectomy. Status post peripheral artery angioplasty with insertion of stent (Chronic ~2010) Right common iliac, [facility] Atherosclerotic heart disease of pilot [place] coronary artery without angina pectoris (Chronic) 2003, JASON to circumflex ; 10/10/2009 tsfer from [facility] to [facility], total of 5 bare metal stents to RCA; CABG X [address] [facility] 01/31/2011 (critical left main and restenosis of RCA stents) Diastolic CHF (Chronic) HLD (hyperlipidemia) (Chronic) HTN (hypertension) (Chronic) PAD (peripheral artery disease) (Chronic) Tobacco dependence (Chronic) Anemia (Chronic) BPH (benign prostatic hyperplasia) (Chronic) Hospital Course and Treatment Imaging Results: RAD/Chest 1 View (Portable) IMPRESSION: Findings in keeping with the CHF with superimposed bibasilar atelectasis and/or infiltrate with small effusions. 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 The patient has had worsening shortness of breath over the past several weeks. He was started on prednisone as an outpatient and after taking the prednisone he developed bright red blood in his colostomy bag x2 days. He did not get evaluated for this but stopped taking the prednisone. This occurred about 2 weeks prior to his presentation. The week of presentation he also had a bleeding issue from his dialysis port. He runs his own dialysis at home 5 times per week and started bleeding from his access port losing what he estimated to be about 1 pint of blood. He has continued to have black stools in his colostomy bag as well. The patient came to the emergency room and was found to have hemoglobin of 6.2. He was previously seen here by Dr. Aggie Almonte who has performed endoscopy on him and did not find any source of bleeding. Following that he had a camera endoscopy at [facility] which did not find anything. Following that he went to [facility] in [place] where he had the AVMs cauterized. Dr. mims was contacted and did not feel that he had anything to offer the patient. We advised the patient that for the most definitive care he would need transferred to [place] for further evaluation by the surgeon or refrigeration engineering teacher that saw him in the past. The patient adamantly refused. We explained to him the risks of staying at this facility where no GI coverage was available if he were to start actively bleeding from his colostomy. He was interested in staying here with transfer should he develop an issue. We advised that that could create a delay in getting him to the appropriate level of care, however he still refused. We agreed to admitting him overnight and transfusing him with 2 units of packed red blood cells and monitoring his hemoglobin and monitoring him for further active bleeding. The patient was admitted to the PCU and placed on telemetry. He had no events on telemetry overnight. He was given 2 units of blood. The following morning his hemoglobin had improved from 6.28.4, and a recheck later that day showed continuing to improve at 8.6. He had no further bleeding at his dialysis port or change in his stools. We have held the patient's aspirin until he is able to receive further instruction on whether or not it is okay to resume it when he follows up with his own doctors from [facility]. We advised him on the necessity of following up with his refrigeration engineering teacher or surgeon who treated him for his AVMs-he needs to follow-up within a week. He will also need to resume dialysis as directed by his laborer orchard and follow-up with him as directed. He should also follow-up with his PCP in 1 to 2 weeks. He was discharged home in stable condition. This patient was seen by Itz Bennett PA-C under the supervision of Doctor Svitlana. [] - Physical Exam General: Alert, Oriented x3, Cooperative HEENT: Atraumatic, PERRLA, EOMI, Normocephalic Neck: Supple, No JVD, Negative Carotid Bruits Lungs: Clear to auscultation, Normal air movement Cardiovascular: Regular rate, No murmurs Abdomen: Bowel Sounds Present, Soft, Non Tender Extremities: No edema, Capillary Refill Less than 3 Seconds Skin: No rashes, No breakdown Musculoskeletal: No Tenderness to Palpation of Joints or Extremities Neurological: Cranial nerves II-XII grossly intact Psych/Mental Status: Normal Affect, Appropriate, Alert and oriented to time, place, person, mood and affect Vital Signs Temp Pulse Resp BP Pulse Ox 97.4 F L 85 20 H 143/61 H 98 07/07/19 08:08 07/07/19 08:08 07/07/19 08:08 07/07/19 08:08 07/07/19 08:08 Oxygen Flow Rate (L/min) 2 Oxygen Delivery Method Nasal Cannula Weight: 152 lb 12.485 oz Body Mass Index (BMI) 24.2 Finger Stick Blood Glucose 200 Intake and Output for Last 24 Hours 07/05/19 07/06/19 07/07/19 23:59 23:59 23:59 Intake Total 610 / 610 620 / 620 Output Total 100 / 100 Balance 610 / 610 520 / 520 Laboratory Tests Past 24 Hrs 07/06/19 07/06/19 07/06/19 14:50 14:50 16:43 WBC 6.3 RBC 1.81 L Hgb 6.2 L Hct 19.9 L MCV 109.9 H MCH 34.3 H MCHC 31.2 L RDW Std Deviation 71.8 H RDW Coeff of Eleni 17.8 H Plt Count 138 L MPV 10.0 Immature Gran % (Auto) 0.500 Neut % (Auto) 74.7 H Lymph % (Auto) 11.5 L [place] % (Auto) 9.5 Eos % (Auto) 3.5 Baso % (Auto) 0.3 Absolute Neuts (auto) 4.7 Absolute Lymphs (auto) 0.73 L Nucleated RBC % 0 Differential Comment Anisocytosis Specimen Type Sample Site pH Bicarbonate Actual POC Total CO2 Base Excess O2 Saturation O2 % ABG pCO2 ABG pO2 Clay Test Respiration Rate O2 Delivery Device Liter Flow EPAP IPAP Blood Gas Notified Whom Blood Gas Notified Time Sodium 130 L Potassium 3.7 Chloride 93 L Carbon Dioxide 28.0 Anion Gap 9 BUN 49 H Creatinine 6.23 H Estim Creat Clear Calc 10.38 Est GFR (MDRD) Af Amer 12 L Est GFR (MDRD) Non-Af 10 L BUN/Creatinine Ratio 7.9 L Glucose 102 Calcium 8.4 L Magnesium 2.2 Troponin I 0.042 Blood Type A NEGATIVE Antibody Screen NEGATIVE Crossmatch See Detail 07/07/19 07/07/19 07/07/19 01:56 03:33 06:33 WBC 5.2 RBC 2.67 L Hgb 8.4 L Hct 26.9 L MCV 100.7 H D MCH 31.5 MCHC 31.2 L RDW Std Deviation 79.5 H RDW Coeff of Eleni 22.4 H Plt Count 136 L MPV 10.2 Immature Gran % (Auto) 0.600 Neut % (Auto) 93.2 H Lymph % (Auto) 4.8 L [place] % (Auto) 1.2 Eos % (Auto) 0.2 Baso % (Auto) 0.0 Absolute Neuts (auto) 4.8 Absolute Lymphs (auto) 0.25 L Nucleated RBC % 0 Differential Comment Anisocytosis 1+ Specimen Type ART ART Sample Site R Brachial R Brachial pH 7.43 7.43 Bicarbonate Actual 23.4 24.3 POC Total CO2 25 25 Base Excess -1 0 O2 Saturation 99 99 O2 % 30 ABG pCO2 35.5 36.9 ABG pO2 115 H 121 H Clay Test NA NA Respiration Rate 12 O2 Delivery Device Nasal Can Bi / C PAP Liter Flow 5.0 EPAP 8 IPAP 12 Blood Gas Notified Whom HOSP MD HOSP MD Blood Gas Notified Time 330 Sodium Potassium Chloride Carbon Dioxide Anion Gap BUN Creatinine Estim Creat Clear Calc Est GFR (MDRD) Af Amer Est GFR (MDRD) Non-Af BUN/Creatinine Ratio Glucose Calcium Magnesium Troponin I Blood Type Antibody Screen Crossmatch 07/07/19 07/07/19 06:33 12:10 WBC RBC Hgb 8.6 L Hct 27.5 L MCV MCH MCHC RDW Std Deviation RDW Coeff of Eleni Plt Count MPV Immature Gran % (Auto) Neut % (Auto) Lymph % (Auto) [place] % (Auto) Eos % (Auto) Baso % (Auto) Absolute Neuts (auto) Absolute Lymphs (auto) Nucleated RBC % Differential Comment Anisocytosis Specimen Type Sample Site pH Bicarbonate Actual POC Total CO2 Base Excess O2 Saturation O2 % ABG pCO2 ABG pO2 Clay Test Respiration Rate O2 Delivery Device Liter Flow EPAP IPAP Blood Gas Notified Whom Blood Gas Notified Time Sodium 132 L Potassium 4.0 Chloride 94 L Carbon Dioxide 25.0 Anion Gap 13 BUN 58 H Creatinine 6.89 H Estim Creat Clear Calc 9.39 Est GFR (MDRD) Af Amer 10 L Est GFR (MDRD) Non-Af 9 L BUN/Creatinine Ratio 8.4 L Glucose 150 H Calcium 8.3 L Magnesium Troponin I Blood Type Antibody Screen Crossmatch Discharge Diet: Renal Diet Discharge Activity: Return to Normal Activity Home Medications: Medications to take at Discharge Albuterol Sulfate 2.5 mg IH Q4H PRN 11/13/18 Alprazolam [Xanax] 0.5 mg PO TID PRN PRN 11/13/18 Tamsulosin HCl [Flomax] 0.8 mg PO DAILY 11/13/18 ascorbate calcium (vitamin C) 500 mg tablet 500 mg PO DAILY 03/02/19 Cholecalciferol (VIT D3) [Vitamin D3] 1,000 unit PO DAILY 03/26/19 Rosuvastatin Calcium 40 mg PO QHS 04/09/19 Folic Acid/Vitamin B Comp W-C [Nephrocaps, Renaphro] 1 cap PO DAILY 05/07/19 Cyanocobalamin (Vitamin B-12) [Vitamin B12] 2,500 mcg PO DAILY 07/06/19 Metoprolol Succinate [Toprol Xl] 50 - 100 mg PO BID PRN PRN 07/06/19 Omeprazole 40 mg PO BID 07/06/19 Guaifenesin Dm [Robitussin Dm] 10 ml PO Q6H PRN PRN #1 bottle 07/07/19 Prednisone 10 mg PO UD #30 tab 07/07/19 Following Prescrptions Were Given to Patient: Prednisone 10 mg PO UD #30 tab Prescription Printed Guaifenesin Dm [Robitussin Dm] 10 ml PO Q6H PRN PRN #1 bottle PRN Reason: Cough Prescription Printed Primary Care Physician: Tania Berger NP-C [Primary Care Provider] - Please follow up with your Primary Care Physician in: 1-2 weeks Please Follow Up With: Your Own Surgeon - [facility] When: 1 week Please Follow Up With: Caleb Alaniz MD When: as directed Disposition: Home Minutes spent on discharge:: 35 Patient Condition:: Stable Medical Necessity - Tobacco Use Smoking Status: Former smoker Tobacco Use: Cigarettes Meaningful Use Info Meaningful Use Diagnoses (Choose all that apply): None applicable <Amadou Shane E - Last Filed: 07/07/19 13:39> Discharge Date and Diagnosis - Secondary Discharge Diagnosis Chronic Problems (Last Reviewed 05/01/19 @ 08:23 by SEUN Flowers) Chronic atrial fibrillation (Chronic) RAVEN (obstructive sleep apnea) (Chronic) ESRD (end stage renal disease) (Chronic) History of non-ST elevation myocardial infarction (NSTEMI) (Chronic 01/21/11) Stented coronary artery (Chronic) 2003, JASON to circumflex ; 10/13/2009 tsfer from [facility] to [facility], total of 5 bare metal stents to RCA per Dr. Barrientos @ [facility]: 3.5 X 18 Pipe Cutter, followed distally by 3.0 X12 Pipe Cutter to distal RCA;3.5 X 15 Pipe Cutter, followed proximally by 4.0 X 18 Pipe Cutter to Mid RCA; 4.0 X 18 Pipe Cutter to Proximal RCA S/P CABG x 3 (Chronic 01/26/11) [facility] per Dr. Osito Hernandez: NICHOLAS to LAD, reverse SVG to OMbranch of CX, reverse SVG to PDA of RCA. PDA endarterectomy. Status post peripheral artery angioplasty with insertion of stent (Chronic ~2010) Right common iliac, [facility] Atherosclerotic heart disease of [place] coronary artery without angina pectoris (Chronic) 2004, JASON to circumflex ; 10/10/2009 tsfer from [facility] to [facility], total of 5 bare metal stents to RCA; CABG X [address] [facility] 01/31/2011 (critical left main and restenosis of RCA stents) Diastolic CHF (Chronic) HLD (hyperlipidemia) (Chronic) HTN (hypertension) (Chronic) PAD (peripheral artery disease) (Chronic) Tobacco dependence (Chronic) Anemia (Chronic) BPH (benign prostatic hyperplasia) (Chronic) Hospital Course and Treatment Summary of Care Provided: Hospitalist note: Discharge summary above reviewed and I agree with the above discharge treatment plan. Patient presented to the emergency room because of worsening shortness of breath over the last couple of weeks. Reportedly, he was started on prednisone as outpatient and he started having bright red blood in his colostomy bag in the last couple of days. Apparently, his doctor took him off prednisone. This patient does hemodialysis at home and according to him, he had large amount of bleeding through his dialysis port. On admission, hemoglobin was 6.2 g/dL. He did have very dark black stool in his colostomy bag. Recently, he was transferred to [facility] in [place] where he was found to have multiple AVMs that was cauterized. Before admission yesterday, Dr. Henderson was contacted and he stated that there is nothing that he can offer the patient here in this hospital and recommended that patient should be transferred back to [facility] for further evaluation by gastroenterology or general surgery and that where he had cauterization of AVMs recently. Patient refused to be transferred to [place] for further evaluation and treatment. It was explained to the patient before admission that we do not have GI coverage here who can s top the bleeding if he is actively bleeding from his colostomy bag. Again patient refused transfer to [place] and he was interested to be admitted here and to be given blood transfusion. Patient was admitted to the floor on telemetry and he received 2 units of packed RBCs. His hemoglobin went up to 8.4 g/dL which was 6.2 g/dL on admission. Patient ambulated and he denied dizziness or lightheadedness. His shortness of breath improved. His vital signs remained stable. Another H&H repeated around noon today before discharge and hemoglobin was 8.6 g/dL. Patient discharged home in a stable medical condition, recommended follow-up with PCP in 1 to 2 weeks, follow-up with nephrology according to their recommendations and also recommended to follow-up with his surgeon at [facility] in 1 week. - Physical Exam General: Alert, Oriented x3, Cooperative, No apparent distress. HEENT: Atraumatic, PERRLA, EOMI. Neck: Supple, No JVD, Negative Carotid Bruits, Trachea Midline, Thyroid Normal. Lungs: Diminished breath sounds bilateral, otherwise clear, No rhonchi, No wheeze, No rales. Cardiovascular: Regular rate, Regular Rhythm, Normal S1, Normal S2, PMI Normal. Abdomen: Bowel Sounds Present, Soft, Non Tender, Non-Distended, No Hepato- splenomegaly, colostomy bag in place. Extremities: No clubbing, No cyanosis, No edema Skin: No rashes, No breakdown Neurological: Cranial nerves are intact, neuro grossly intact Vital Signs are stable. This note was generated with [employer] dictation software. It may contain incorrect words, spelling, and punctuation that were not noted in checking the note before signing. - Physical Exam Vital Signs Temp Pulse Resp BP Pulse Ox 97.4 F L 85 20 H 143/61 H 98 07/07/19 08:08 07/07/19 08:08 07/07/19 08:08 07/07/19 08:08 07/07/19 08:08 Oxygen Flow Rate (L/min) 2 Oxygen Delivery Method Nasal Cannula Weight: 152 lb 12.485 oz Body Mass Index (BMI) 24.2 Finger Stick Blood Glucose 200 Intake and Output for Last 24 Hours 07/05/19 07/06/19 07/07/19 23:59 23:59 23:59 Intake Total 610 / 610 620 / 620 Output Total 100 / 100 Balance 610 / 610 520 / 520 Laboratory Tests Past 24 Hrs 07/06/19 07/06/19 07/06/19 14:50 14:50 16:43 WBC 6.3 RBC 1.81 L Hgb 6.2 L Hct 19.9 L MCV 109.9 H MCH 34.3 H MCHC 31.2 L RDW Std Deviation 71.8 H RDW Coeff of Eleni 17.8 H Plt Count 138 L MPV 10.0 Immature Gran % (Auto) 0.500 Neut % (Auto) 74.7 H Lymph % (Auto) 11.5 L [place] % (Auto) 9.5 Eos % (Auto) 3.5 Baso % (Auto) 0.3 Absolute Neuts (auto) 4.7 Absolute Lymphs (auto) 0.73 L Nucleated RBC % 0 Differential Comment Anisocytosis Specimen Type Sample Site pH Bicarbonate Actual POC Total CO2 Base Excess O2 Saturation O2 % ABG pCO2 ABG pO2 Clay Test Respiration Rate O2 Delivery Device Liter Flow EPAP IPAP Blood Gas Notified Whom Blood Gas Notified Time Sodium 130 L Potassium 3.7 Chloride 93 L Carbon Dioxide 28.0 Anion Gap 9 BUN 49 H Creatinine 6.23 H Estim Creat Clear Calc 10.38 Est GFR (MDRD) Af Amer 12 L Est GFR (MDRD) Non-Af 10 L BUN/Creatinine Ratio 7.9 L Glucose 102 Calcium 8.4 L Magnesium 2.2 Troponin I 0.042 Blood Type A NEGATIVE Antibody Screen NEGATIVE Crossmatch See Detail 07/07/19 07/07/19 07/07/19 01:56 03:33 06:33 WBC 5.2 RBC 2.67 L Hgb 8.4 L Hct 26.9 L MCV 100.7 H D MCH 31.5 MCHC 31.2 L RDW Std Deviation 79.5 H RDW Coeff of Eleni 22.4 H Plt Count 136 L MPV 10.2 Immature Gran % (Auto) 0.600 Neut % (Auto) 93.2 H Lymph % (Auto) 4.8 L [place] % (Auto) 1.2 Eos % (Auto) 0.2 Baso % (Auto) 0.0 Absolute Neuts (auto) 4.8 Absolute Lymphs (auto) 0.25 L Nucleated RBC % 0 Differential Comment Anisocytosis 1+ Specimen Type ART ART Sample Site R Brachial R Brachial pH 7.43 7.43 Bicarbonate Actual 23.4 24.3 POC Total CO2 25 25 Base Excess -1 0 O2 Saturation 99 99 O2 % 30 ABG pCO2 35.5 36.9 ABG pO2 115 H 121 H Clay Test NA NA Respiration Rate 12 O2 Delivery Device Nasal Can Bi / C PAP Liter Flow 5.0 EPAP 8 IPAP 12 Blood Gas Notified Whom HOSP HOSP MD Blood Gas Notified Time 330 Sodium Potassium Chloride Carbon Dioxide Anion Gap BUN Creatinine Estim Creat Clear Calc Est GFR (MDRD) Af Amer Est GFR (MDRD) Non-Af BUN/Creatinine Ratio Glucose Calcium Magnesium Troponin I Blood Type Antibody Screen Crossmatch 07/07/19 07/07/19 06:33 12:10 WBC RBC Hgb 8.6 L Hct 27.5 L MCV MCH MCHC RDW Std Deviation RDW Coeff of Eleni Plt Count MPV Immature Gran % (Auto) Neut % (Auto) Lymph % (Auto) [place] % (Auto) Eos % (Auto) Baso % (Auto) Absolute Neuts (auto) Absolute Lymphs (auto) Nucleated RBC % Differential Comment Anisocytosis Specimen Type Sample Site pH Bicarbonate Actual POC Total CO2 Base Excess O2 Saturation O2 % ABG pCO2 ABG pO2 Clay Test Respiration Rate O2 Delivery Device Liter Flow EPAP IPAP Blood Gas Notified Whom Blood Gas Notified Time Sodium 132 L Potassium 4.0 Chloride 94 L Carbon Dioxide 25.0 Anion Gap 13 BUN 58 H Creatinine 6.89 H Estim Creat Clear Calc 9.39 Est GFR (MDRD) Af Amer 10 L Est GFR (MDRD) Non-Af 9 L BUN/Creatinine Ratio 8.4 L Glucose 150 H Calcium 8.3 L Magnesium Troponin I Blood Type Antibody Screen Crossmatch Disposition: Home Minutes spent on discharge:: 27 Patient Condition:: Stable Meaningful Use Info Meaningful Use Diagnoses (Choose all that apply): None applicable Code Visit Inpatient E&M: 64088 Disch Hosp
== END 2019-07-07 10:59 | disposition home or self-care (01) | DRG 811 ==
LOC: ED 14:40 → PCU 17:12
PROVIDERS: Physician Assistant; Admitting Provider Family Medicine; Emergency Provider Emergency Medicine; Family Provider Nurse Practitioner Family; PCP Nurse Practitioner Family; Referring Provider Family Medicine; Visit Provider Hospitalist
DX: D62 Acute posthemorrhagic anemia (principal); N18.6 End stage renal disease; J44.1 Chronic obstructive pulmonary disease with (acute) exacerbation; I50.32 Chronic diastolic (congestive) heart failure; I13.2 Hypertensive heart and chronic kidney disease with heart failure and with stage 5 chronic kidney disease, or end stage renal disease; K92.2 Gastrointestinal hemorrhage, unspecified; I25.10 Atherosclerotic heart disease of native coronary artery without angina pectoris; Z99.2 Dependence on renal dialysis; Z93.3 Colostomy status; Z95.1 Presence of aortocoronary bypass graft; Z95.5 Presence of coronary angioplasty implant and graft; Z95.820 Peripheral vascular angioplasty status with implants and grafts; E78.5 Hyperlipidemia, unspecified; N40.0 Benign prostatic hyperplasia without lower urinary tract symptoms; I73.9 Peripheral vascular disease, unspecified; I25.2 Old myocardial infarction; I48.2 Chronic atrial fibrillation; G47.33 Obstructive sleep apnea (adult) (pediatric); Z90.49 Acquired absence of other specified parts of digestive tract; Z87.891 Personal history of nicotine dependence
CPT/HCPCS: 36415; 36430; 36600; 71045; 80048; 82803; 83735; 84484; 85014; 85018; 85025; 86850; 86900; 86901; 86920; 86922; 93005; 94002; 94640; 96365; 96366; 96375; 96376; 99218; 99285; 99406; J7030; J7040; P9016; A4216; G0378

== ENCOUNTER → 2019-07-09 13:12 | Outpatient (CLI) | payer MEDICARE, SELFPAY ==
[2019-05-01 08:03] VITALS: BMI 24.7
[2019-07-06 17:39] VITALS: BMI 24.2
--- NOTE | 2019-07-10 10:51 | PFT ---
INTRODUCTION: The patient is a 68-year-old male that presents for pulmonary function studies secondary to a diagnosis of shortness of breath. Respiratory therapy reports that the patient was only able to do 1 body box attempt and one DLCO attempt. The patient had difficulty in completing testing. INTERPRETATION: Forced expiration spirometry demonstrates the presence of a severe large airways obstructive ventilatory defect. There was no significant response to aerosolized bronchodilators. Spirograms are of good quality and do not plateau indicating slow emptying of the lungs. Body plethysmography was performed and reveals a decrease TLC to 3.53 L, 63% of predicted, indicative of a moderate restrictive ventilatory defect. The remainder of the lung volumes are symmetrically reduced. Diffusing capacity by single breath CO is reduced at 46% of predicted. IMPRESSION: Irreversible severe mixed ventilatory defect with symmetric reduction in diffusing capacity.
== END ==
PROVIDERS: Family Provider Nurse Practitioner Family; PCP Nurse Practitioner Family; Referring Provider Nurse Practitioner Acute Care; Visit Provider Nurse Practitioner Acute Care
DX: J44.1 Chronic obstructive pulmonary disease with (acute) exacerbation (principal)
CPT/HCPCS: 94060; 94726; 94729

== ENCOUNTER → 2019-07-12 19:59 | Outpatient (CLI) | payer MEDICARE, SELFPAY ==
[2019-05-09 15:02] VITALS: BMI 24.7
[2019-07-06 17:39] VITALS: BMI 24.2
== END ==
PROVIDERS: Family Provider Nurse Practitioner Family; PCP Nurse Practitioner Family; Referring Provider Nurse Practitioner Acute Care; Visit Provider Nurse Practitioner Acute Care
DX: G47.33 Obstructive sleep apnea (adult) (pediatric) (principal)
CPT/HCPCS: 95810

== ENCOUNTER 2019-07-23 09:48 | Observation (INO) | payer MEDICARE, SELFPAY ==
[2019-07-06 17:39] VITALS: BMI 24.2
[2019-07-23] VITALS (17 sets, daily range): BP systolic 123–155; BP diastolic 56–88; PULSE 78–142; RESP 12–37; TEMP 36.2–37.2; O2SAT 93–100; BMI 23.8; BMI 23.9; BMI 24.0
--- NOTE | 2019-07-23 10:04 | EKG12_ITS ---
Test Reason : GI BLEED Blood Pressure : / mmHG Vent. Rate : 084 BPM Atrial Rate : 084 BPM P-R Int : 172 ms QRS Dur : 078 ms QT Int : 402 ms P-R-T Axes : 009 067 227 degrees QTc Int : 475 ms Normal sinus rhythm Cannot rule out Anterior infarct , age undetermined Nonspecific ST segment abnormality Abnormal ECG Confirmed by SANTANA MONTENEGRO, KEISHA ([id number]), news videotape editor ANGELA MTZ ([id number]) on 07/25/2019 1:38:53 PM Referred By: Ceci Suggs Confirmed By:KEISHA DILLON MD
--- NOTE | 2019-07-23 10:04 | RAD_ITS ---
EXAM DESCRIPTION: PORTABLE AP CHEST CLINICAL HISTORY: 68 years Male, shortness of breath COMPARISON: Previous's obtained on 07/06/2019 FINDINGS: Sternotomy sutures are noted in place. The rest of the thorax is intact.The heart and mediastinum appear to be within normal limits. Moderate-sized bibasilar pleural effusions are identified which have increased when compared with the previous chest x-ray. RAD/Chest 1 View (Portable) IMPRESSION: Moderate size bibasilar pleural effusions are identified which have increased. Electronically Signed: Florin Arias, at 12:02 EDT Tel , Service support ,
--- NOTE | 2019-07-23 10:10 | ED.VIS.GEN ---
History of Present Illness Chief Complaint: GI Bleed Informant: Patient Onset: Days Context: Gradual Onset Timing: Continuous Narrative: Patient is a 68-year-old male with extensive medical history including ESRD (home dialysis every other day, due today), chronic anemia, CAD with prior CABG, ischemic bowel s/p colostomy, recent GI bleeding requiring cauterization at [facility], prior unremarkable GI capsule at [place], diastolic CHF, PAD, HTN, HLD, BPH presenting for concern of GI bleed. Patient has an extensive history of GI bleeding and on chart review shows that patient has a history of AVMs. He had multiple scopes and capsule endoscopies. Patient is noted intermittent bleeding coming from his ostomy. He notes his ostomy material is dark but is not sure if that is from the iron. Patient had lab work which was drawn on Tuesday and resulted on Tuesday showing that his hemoglobin was 7.2. He notes he is also had increased shortness of breath and worsening cough for the past few days. He also has a discomfort in his right shoulder. Patient states he feels that he needs to cough something up but he cannot get it up. He denies any fever or chills. He denies any abdominal pain but does have slight discomfort at his ostomy site. Patient is not clear on how much blood was seen at his ostomy. Patient also notes he is under evaluation to get a home BiPAP. He denies any other complaints at this time. He states that if he needs another scope he would like to go to [facility] otherwise he is fine staying here. Past Medical History - Allergies and Home Meds Allergies/Adverse Reactions: Allergies irbesartan [From Avapro] Allergy (Severe, Verified 07/10/19 09:06) Blisters zolpidem [From Ambien] Adverse Reaction (Severe, Verified 07/10/19 09:06) made me go crazy, memory loss amoxicillin Adverse Reaction (Intermediate, Verified 07/10/19 09:06) PASSES BLOOD IN STOOL TOLERATES ZOSYN PASSES BLOOD IN STOOL metronidazole [From Flagyl] Adverse Reaction (Verified 07/10/19 09:06) pt states he got palpitations and nose bleed. pt states he got palpitations and nose bleed. Past Medical History: - - End Stage renal disease, coronary artery disease, GI bleed, ischemic bowel with subsequent ostomy placement, hypertension, BPH Surgical History: coronary bypass surgery, tonsillectomy, - Smoking Status: Former smoker - Family History Maternal Family History: Family History (Last Reviewed 07/18/19 @ 13:21 by SEUN Flowers) Father CAD (coronary artery disease) Hypertension Kidney disease CVA (cerebral vascular accident) Other Cancer Family History: Reports: Heart Disease Paternal Family History: Family History (Last Reviewed 07/18/19 @ 13:21 by SEUN Flowers) Father CAD (coronary artery disease) Hypertension Kidney disease CVA (cerebral vascular accident) Other Cancer Family History: Reports: Heart Disease, Hypertension, Renal Disease Review of Systems All systems negative except as indicated General: Reports: Malaise Respiratory: Reports: Dyspnea, Cough Gastrointestinal: Reports: Melena Physical Exam Vital Signs/Narrative: Vital Signs Temp Pulse Resp BP Pulse Ox 07/23/19 09:49 97.2 F L 87 24 H 147/61 H 95 Inital Vital Signs reviewed: Yes General: Well developed, No Acute Distress, - - Appears chronically ill Head: Normocephalic, Atraumatic Eyes: Perrl, EOMI, Pale conjunctiva ENT: Moist mucous membranes, No rhinorrhea Neck: Supple, Nontender, No JVD Cardiovascular: Regular rate, Regular rhythm, No murmurs, - - AV fistula in the left upper extremity with palpable thrill Respiratory: No distress, Chest nontender, Rhonchi - Right lung, - - Tachypnea, wet cough on exam, no crackles appreciated Abdomen: Soft, Nontender, Nondistended, Normal bowel sounds, - - Ostomy in place with brown/green stool in the bag Back: Nontender, Normal Inspection Extremities: Nontender, Edema - Left greater than right?per patient and spouse this is chronic and unchanged Skin: Normal color, No rash Neurological: Alert, Oriented x3, Cranial nerves II-XII grossly intact, Normal Strength, Normal Sensation Psychological: Normal affect, Normal Mood Diagnostic/Tx/Re-eval Chest X-Ray - ED: 1 View, Read by ED Physician, Read by Radiologist, CHF, Right Effusion, Left Effusion Clinical Impression(s) from Imaging Studies Chest X-Ray 07/23/19 10:04 IMPRESSION: Moderate size bibasilar pleural effusions are identified which have increased. Electronically Signed: Florin Arias, at 12:02 EDT Tel , Service support , Laboratory Data 07/23/19 07/23/19 07/23/19 10:35 10:35 10:35 WBC 12.4 H RBC 2.19 L Hgb 7.3 L Hct 24.3 L MCV 111.0 H MCH 33.3 H MCHC 30.0 L RDW Std Deviation 83.4 H RDW Coeff of Eleni 20.7 H Plt Count 184 MPV 9.5 Immature Gran % (Auto) 0.700 Neut % (Auto) 85.2 H Lymph % (Auto) 6.0 L [place] % (Auto) 6.0 Eos % (Auto) 1.9 Baso % (Auto) 0.2 Absolute Neuts (auto) 10.5 H Absolute Lymphs (auto) 0.74 L Nucleated RBC % 0 Differential Comment COMMENT PT 14.3 INR 1.1 APTT 39.9 H Sodium 130 L Potassium 4.7 Chloride 95 L Carbon Dioxide 25.0 Anion Gap 10 BUN 65 H Creatinine 7.81 H* Estim Creat Clear Calc 8.28 Est GFR (MDRD) Af Amer 9 L Est GFR (MDRD) Non-Af 7 L BUN/Creatinine Ratio 8.3 L Glucose 110 H Calcium 8.3 L Total Bilirubin 0.60 AST 10 L ALT 18 Alkaline Phosphatase 118 H Troponin I 0.025 Total Protein 6.4 Albumin 3.0 L Globulin 3.4 Albumin/Globulin Ratio 0.9 Blood Type Antibody Screen Crossmatch 07/23/19 07/23/19 10:35 10:35 WBC RBC Hgb Hct MCV MCH MCHC RDW Std Deviation RDW Coeff of Eleni Plt Count MPV Immature Gran % (Auto) Neut % (Auto) Lymph % (Auto) [place] % (Auto) Eos % (Auto) Baso % (Auto) Absolute Neuts (auto) Absolute Lymphs (auto) Nucleated RBC % Differential Comment PT INR APTT Sodium Potassium Chloride Carbon Dioxide Anion Gap BUN Creatinine Estim Creat Clear Calc Est GFR (MDRD) Af Amer Est GFR (MDRD) Non-Af BUN/Creatinine Ratio Glucose Calcium Total Bilirubin AST ALT Alkaline Phosphatase Troponin I Total Protein Albumin Globulin Albumin/Globulin Ratio Blood Type A NEGATIVE Antibody Screen NEGATIVE Crossmatch See Detail - Rhythm Strip Rhythm Strip: Sinus Rhythm Rate: 84 Ectopy: None - EKG Initial EKG Interpretation: Sinus Rhythm, - - Normal sinus rhythm at a rate of 84 MT interval 172 QRS 78 QT/QTc 402/[address] segments with nonspecific T wave inversion in 3 and aVF - Medical Decision Making Patient is evaluated for concern of blood out of his ostomy as well as worsening shortness of breath and anemia. The symptoms seem to been worsening over the past 3 days but are also chronic. Patient has chronic small intestinal bleed which is required multiple admissions and transfusions. Patient's hemoglobin is 7. 3. Patient states that his hemoglobin from Tuesday resulted at 7.2. I do think he needs a transfusion because of his CAD and he is symptomatic. Patient is feeling short of breath. Patient did verbally consent for transfusion while in the emergency room. 2 units of blood are ordered. While patient does have an occult GI bleed he is stable. He is given IV Protonix in the emergency room. He has not had a significant drop in his hemoglobin over the past 5 days and I feel that he is stable for admission at this time. Discussed the case with surgery as well as medicine. General surgery states that they do not have any further scopes interventions to offer him but states they are willing to see him if he emergently decompensates. Ultimately patient will need further follow-up at [facility]. Medicine is aware and comfortable of this. She does have elevated creatinine which is consistent with his end-stage renal disease. He does not have EKG findings or elevated potassium concerning for hyperkalemia and does not need emergent dialysis at this time. His chest x-ray does show increased pleural effusions however he has relatively clear lung sounds on exam and his O2 saturation remains above 95%. Patient states that he normally gets BiPAP I do not feel that it is indicated emergently at this time. He may require it while he sleeps during this hospital stay. Patient is admitted in stable condition. ED Disposition - Plan for ED Patient: Disposition: Acute Care Hospital [facility] Diagnosis: Acute on chronic blood loss anemia, Upper GI bleed, ESRD (end stage renal disease)
[2019-07-23 10:43] LABS: Hematocrit 24.3 % (40-54); Hemoglobin 7.3 g/dL (13.0-16.5); Mean Corpuscular Hgb 33.3 pg (27.0-32.0); RBC Distribution Width CV 20.7 % (11.6-14.6); Red Blood Count 2.19 M/mm3 (4.6-6.2); White Blood Count 12.4 K/mm3 (4.4-11.0)
[2019-07-23 10:44] LABS: Absolute Lymphocyte Count 0.74 X10^3/uL (0.83-4.51); Absolute Neutrophil Count 10.5 X10^3/uL (2.0-7.7); Basophil# 0.03 X10^3/uL; Basophil% 0.2 % (0-1); Eosinophil# 0.23 X10^3/uL; Eosinophils% 1.9 % (0-5); Lymphocyte # 0.74 X10^3/ul (4.0); Mean Platelet Vol. 9.5 fl (6.2-12.0); Monocyte# 0.74 X10^3/uL; NRBC Flagged by Analyzer 0 % (0-5); Neutrophil # 10.54 X10^3/uL (2.7-7.7); Neutrophil % 85.2 % (47-70); POSITIVE MORPHOLOGY YES; Platelet Count 184 K/mm3 (150-450); RBC Distribution Width SD 83.4 fl (35.1-43.9)
[2019-07-23] MEDS: Ipratropium/Albuterol Sulfate 3 ML AMPUL.NEB INHALATION (10:46)
[2019-07-23 10:47] LABS: Differential Indicated SCAN CRITERIA MET
[2019-07-23 10:52] LABS: International Normalized Ratio 1.1; Partial Thromboplast Time 39.9 Seconds (24.1-36.2); Prothrombin Time (Protime)PT. 14.3 SECONDS (11.7-14.9)
--- NOTE | 2019-07-23 11:07 | ED.RN ---
creat 7.[address] lab. dr rodriguez aware
[2019-07-23 11:08] LABS: ALB/GLOB Ratio 0.9 RATIO (0.9-2.4); AST(SGOT) 10 U/L (15-37); Alanine Aminotransfer ALT/SGPT 18 U/L (16-61); Alkaline Phosphatase 118 U/L (45-117); Anion Gap 10 (5-15); BUN 65 mg/dL (7-18); BUN/Creat Ratio 8.3 RATIO (10-20); Calcium,Total 8.3 mg/dL (8.5-10.1); Chloride 95 mmol/L (98-107); Creatinine, Serum 7.81 mg/dL (0.70-1.30); EST Glomerular Filtration Rate 7 mL/min (>60); Est Glom Filt Rate - Afr Amer 9 mL/min (>60); Estimated Creatinine Clearance 8.28 ml/min; Globulin 3.4 g/dL (2.2-4.2); Glucose 110 mg/dL (74-106); Potassium 4.7 mmol/L (3.5-5.1); Protein, Total 6.4 g/dL (6.4-8.2); Sodium Level 130 mmol/L (136-145)
--- NOTE | 2019-07-23 13:57 | PCM.HP.STD ---
Problem List (1) GI bleed Status: Acute Qualifiers: GI bleed type/associated pathology: gastritis Gastritis type: acute gastritis Qualified Code(s): K29.01 - Acute gastritis with bleeding (2) Acute blood loss anemia Status: Acute (3) Chronic atrial fibrillation Status: Chronic (4) RAVEN (obstructive sleep apnea) Status: Chronic Comment: AHI 426. (5) ESRD (end stage renal disease) Status: Chronic (6) History of non-ST elevation myocardial infarction (NSTEMI) Status: Chronic (7) S/P CABG x 3 Status: Chronic Comment: [facility] per Dr. Osito Hernandez: NICHOLAS to LAD, reverse SVG to OMbranch of CX, reverse SVG to PDA of RCA. PDA endarterectomy. (8) Status post peripheral artery angioplasty with insertion of stent Status: Chronic Comment: Right common iliac, [facility] (9) Diastolic CHF Status: Chronic Qualifiers: Heart failure chronicity: chronic Qualified Code(s): I50.32 - Chronic diastolic (congestive) heart failure (10) HLD (hyperlipidemia) Status: Chronic Qualifiers: Hyperlipidemia type: unspecified Qualified Code(s): E78.5 - Hyperlipidemia, unspecified (11) HTN (hypertension) Status: Chronic Qualifiers: Hypertension type: essential hypertension Qualified Code(s): I10 - Essential (primary) hypertension (12) PAD (peripheral artery disease) Status: Chronic (13) COPD (chronic obstructive pulmonary disease) Status: Chronic Qualifiers: COPD type: COPD with acute exacerbation Qualified Code(s): J44.1 - Chronic obstructive pulmonary disease with (acute) exacerbation (14) Tobacco dependence Status: Chronic (15) Anemia Status: Chronic Qualifiers: Anemia type: unspecified type Qualified Code(s): D64.9 - Anemia, unspecified (16) BPH (benign prostatic hyperplasia) Status: Chronic Qualifiers: Lower urinary tract symptom presence: unspecified whether lower urinary tract symptoms present Qualified Code(s): N40.0 - Benign prostatic hyperplasia without lower urinary tract symptoms History of Present Illness Date of Admission: 07/23/19 Chief Complaint: Fatigue, malaise, dyspnea, bleeding from ostomy. The patient is a 68 y/o M w/ PMHx: Chronic AF, RAVEN, CAD s/p CABG x 3 and PCI, PAD s/p R common iliac angioplasty and PCI, Diastolic CHF, BPH, Tobacco use, AOCD, HTN, HLD, ESRD on HD following w/ Dr. Alaniz, recently discharged 07/07/2019 following evaluation for acute blood loss anemia secondary to GI bleed with dialysis port bleeding with history of prior admission 05/19/2019 to [facility] in [place] secondary to ongoing bleeding with repeat EGDs at that time and cauterization of lesions with multiple blood transfusions as well as acute mild COPD exacerbation at that time who now re-presents to the [facility] on 07/23/2019 with history of ongoing black tarry appearing stools from his end ileostomy x2 days with concurrent fatigue, increasing dyspnea over the last 3 to 4 days progressively worsening prompting ED presentation. Patient denies any concurrent chest discomfort. He does state he has very focal discomfort specifically at the stoma site only, rated 3-4 out of 10, transient, intermittent, independent of food intake. Work-up in the ED included T 97.2, heart rate 87, BP 147/61, respiratory rate 24, 95% on room air, CBC with WBC 12.4, hemoglobin 7.3, platelet 184 with left shift, coags with PT 14.3, INR 1.1, PTT 39.9, CMP with sodium 130, chloride 95, BUN/creatinine 65/7.81, glucose 110, troponin 0.025, positive occult blood, chest x-ray with moderate size bibasilar pleural effusions increased from prior, type and cross with 2 unit ordered PRBC per ED physician. In the ED patient administered IV pantoprazole, DuoNeb therapy. Dr. Tavares was willing to evaluate patient at [facility]. Past Medical History Past Medical History (Chronic Problems): Chronic Problems (Last Reviewed 07/18/19 @ 13:21 by Evelyn Thurman, ARMEN-C) Chronic atrial fibrillation (Chronic) RAVEN (obstructive sleep apnea) (Chronic) AHI 426. ESRD (end stage renal disease) (Chronic) History of non-ST elevation myocardial infarction (NSTEMI) (Chronic 01/21/11) Stented coronary artery (Chronic) 2003, JASON to circumflex ; 10/13/[address] [facility] to [facility], total of 5 bare metal stents to RCA per Dr. Barrientos @ [facility]: 3.5 X 18 Employee Health Rn, followed distally by 3.0 X12 Employee Health Rn to distal RCA;3.5 X 15 Employee Health Rn, followed proximally by 4.0 X 18 Employee Health Rn to Mid RCA; 4.0 X 18 Employee Health Rn to Proximal RCA S/P CABG x 3 (Chronic 01/26/11) [facility] per Dr. Osito Hernandez: NICHOLAS to LAD, reverse SVG to OMbranch of CX, reverse SVG to PDA of RCA. PDA endarterectomy. Status post peripheral artery angioplasty with insertion of stent (Chronic ~2010) Right common iliac, [facility] Atherosclerotic heart disease of [place] coronary artery without angina pectoris (Chronic) 2004, JASON to circumflex ; 10/10/[address] [facility] to [facility], total of 5 bare metal stents to RCA; CABG X 3 vessels @ [facility] 01/31/2011 (critical left main and restenosis of RCA stents) Diastolic CHF (Chronic) HLD (hyperlipidemia) (Chronic) HTN (hypertension) (Chronic) PAD (peripheral artery disease) (Chronic) COPD (chronic obstructive pulmonary disease) (Chronic) Tobacco dependence (Chronic) Anemia (Chronic) BPH (benign prostatic hyperplasia) (Chronic) Medical History: Medical History (Last Reviewed 07/18/19 @ 13:21 by Evelyn Thurman, ARMEN-C) COPD exacerbation (Acute) J44.1 Acute respiratory failure with hypoxia (Acute) J96.01 ESRD (end stage renal disease) (Chronic) N18.6 History of non-ST elevation myocardial infarction (NSTEMI) (Chronic) Onset Date: 01/21/11 I25.2 Atherosclerotic heart disease of [place] coronary artery without angina pectoris (Chronic) I25.10 2004, JASON to circumflex ; 10/10/[address] [facility] to [facility], total of 5 bare metal stents to RCA; CABG X 3 vessels @ [facility] 01/31/2011 (critical left main and restenosis of RCA stents) Diastolic CHF (Chronic) I50.30 HLD (hyperlipidemia) (Chronic) E78.5 HTN (hypertension) (Chronic) I10 PAD (peripheral artery disease) (Chronic) I73.9 COPD (chronic obstructive pulmonary disease) (Chronic) J44.9 Tobacco dependence (Chronic) F17.200 Anemia (Chronic) D64.9 BPH (benign prostatic hyperplasia) (Chronic) N40.0 Allergies irbesartan [From Avapro] Allergy (Severe, Verified 07/10/19 09:06) Blisters zolpidem [From Ambien] Adverse Reaction (Severe, Verified 07/10/19 09:06) made me go crazy, memory loss amoxicillin Adverse Reaction (Intermediate, Verified 07/10/19 09:06) PASSES BLOOD IN STOOL TOLERATES ZOSYN PASSES BLOOD IN STOOL metronidazole [From Flagyl] Adverse Reaction (Verified 07/10/19 09:06) pt states he got palpitations and nose bleed. pt states he got palpitations and nose bleed. Home Medications: Ambulatory Orders Medication Instructions Recorded ALPRAZolam [Xanax] 0.5 mg PO BID 07/23/19 Albuterol Aerosols [Ventolin 1 inh INHALATION Q4H PRN PRN 07/23/19 Aerosols] Aspirin [Aspirin, Baby] 81 mg PO QHS 07/23/19 Budesonide Aerosol [Pulmicort 1 inh INHALATION BID 07/23/19 Respules] Formoterol Fumarate [Perforomist] 20 mcg INHALATION BID 07/23/19 Ipratropium/Albuterol Sulfate 1 inh INHALATION Q4H PRN PRN 07/23/19 [Iprat-Albut 0.5-3(2.5) mg/3 ml] Metoprolol Succinate 25 mg PO DAILY 07/23/19 Omeprazole 40 mg PO BID 07/23/19 Rosuvastatin Calcium [Crestor] 40 mg PO QHS 07/23/19 Tamsulosin HCl [Flomax] 0.8 mg PO DAILY 07/23/19 Surgical History: Surgical History (Last Reviewed 07/18/19 @ 13:21 by Evelyn Tuhrman, ARMEN-C) Stented coronary artery (Chronic) Z95.5 2003, JASON to circumflex ; 10/13/[address] [facility] to [facility], total of 5 bare metal stents to RCA per Dr. Barrientos @ [employer]: 3.5 X 18 Employee Health Rn, followed distally by 3.0 X12 Employee Health Rn to distal RCA;3.5 X 15 Employee Health Rn, followed proximally by 4.0 X 18 Employee Health Rn to Mid RCA; 4.0 X 18 Employee Health Rn to Proximal RCA S/P CABG x 3 (Chronic) Onset Date: 01/26/11 Z95.1 [facility] per Dr. Osito Hernandez: NICHOLAS to LAD, reverse SVG to OMbranch of CX, reverse SVG to PDA of RCA. PDA endarterectomy. Status post peripheral artery angioplasty with insertion of stent (Chronic) Onset Date: ~2010 Z95.820 Right common iliac, [facility] history of surgically created arteriovenous fistula s/p fistulogram Onset Date: ~09/28/18 Surgical History: coronary bypass surgery, tonsillectomy, - - CABG x3, multiple PCI coronary arteries, right common iliac angioplasty and stenting, aVF, tonsillectomy, multiple endoscopies with intervention. Psychiatric History: Anxiety Lives: Spouse/ Significant Other Smoking Status: Current every day smoker Tobacco Use: Cigarettes Alcohol: None Drugs: None - *Family History Maternal Family History: Family History (Last Reviewed 07/18/19 @ 13:21 by SEUN Flowers) Father CAD (coronary artery disease) Hypertension Kidney disease CVA (cerebral vascular accident) Other Cancer History Items: Heart Disease Paternal Family History: Family History (Last Reviewed 07/18/19 @ 13:21 by SEUN Flowers) Father CAD (coronary artery disease) Hypertension Kidney disease CVA (cerebral vascular accident) Other Cancer History Items: Heart Disease, Hypertension, Renal Disease Review of Systems Constitutional: Reports: Malaise, Weakness, Fatigue. Denies: Chills, Fever, Weight Change HEENT: Denies: Head Aches, Sinus Congestion, Sinus Drainage Cardiovascular: Denies: Chest Pain, Chest Pressure, Chest Tightness, Light Headedness, Orthopnea, Palpitations, Syncope Respiratory: Reports: Shortness of Breath, Shortness of breath at rest, Shortness of breath upon exertion. Denies: Cough, Sputum production Gastrointestinal: Reports: Abdominal Pain, - - Black tarry appearing stools from ileostomy.. Denies: Nausea, Vomiting Genitourinary: Denies: Dysuria Musculoskeletal: Reports: Joint Pain, Muscle pain. Denies: Joint Tenderness Skin: Denies: Rash, Wounds Neurological: Denies: Numbness, Tingling, Focal weakness Psychiatric: Reports: Anxiety. Denies: Depression, Homicidal Ideations, Suicidal Ideations Hematologic/ Lymphatic: Reports: Anemia, Easy Bruising, Easy Bleeding VTE Information - Inpt Only VTE Present on Admission: No VTE Mechan Device Prophylaxis: SCD's VTE Pharm Prophylaxis ordered?: No Reason prophylaxis not ordered:: Medical Contraindication Subjective: Seated upright in ED bed, no acute distress, eating food upon evaluation, noted to patient that given his GI bleed with discontinue this and maintain n.p.o. status. Objective: Physical Examination: General: awake, alert, oriented x 3 and cooperative, seated upright in ED bed, no acute distress, no apparent dyspnea, eating food. Skin: normal color, turgor, no icterus, cyanosis of notable various staged ecchymoses to the extremities lateral lower externally chronic venous stasis skin changes. HEENT: AT/NC, EOMI, PERRLA, MMM, no carotid bruits or JVD noted. Lungs: CTA bilaterally, moderate effort, moderate decrease BL bases, no rales, ronchi or wheezing. Heart: Regular rate and rhythm; no gallop, rub audible. Abdomen: soft, thin habitus, NTTP to palpation of the abdomen but notes focal pain at the stoma site, obvious black tarry stool output in the ostomy bag, ND, mildly hyperactive BS, no HSM. Extremities: no cyanosis, clubbing, lateral lower extremity pedal to proximal lucas, Neurological: patient awake, alert, oriented x 3; cognitive function intact; pupils equally reactive to light and accomodation; cranial nerves II-XII grossly normal, moving all 4 extremities, no focal deficits, strength moderately to severely global decrease secondary to acute presentation. Psychiatric: affect appears flat, no acute evidence of depressive or anxiety feelings. - Physical Exam Vital Signs Temp Pulse Resp BP Pulse Ox 97.2 F L 78 22 H 146/58 H 95 07/23/19 09:49 07/23/19 11:58 07/23/19 11:58 07/23/19 11:58 07/23/19 11:58 Oxygen Delivery Method Room Air Weight: 148 lb Body Mass Index (BMI) 23.8 Finger Stick Blood Glucose 200 Microbiology Past 72 Hours 07/23/19 10:35 Stool Occult Blood (ESA) - Final Stool Occult Blood Positive Laboratory Tests Past 24 Hrs 07/23/19 07/23/19 07/23/19 10:35 10:35 10:35 WBC 12.4 H RBC 2.19 L Hgb 7.3 L Hct 24.3 L MCV 111.0 H MCH 33.3 H MCHC 30.0 L RDW Std Deviation 83.4 H RDW Coeff of Eleni 20.7 H Plt Count 184 MPV 9.5 Immature Gran % (Auto) 0.700 Neut % (Auto) 85.2 H Lymph % (Auto) 6.0 L Fulton % (Auto) 6.0 Eos % (Auto) 1.9 Baso % (Auto) 0.2 Absolute Neuts (auto) 10.5 H Absolute Lymphs (auto) 0.74 L Nucleated RBC % 0 Differential Comment COMMENT PT 14.3 INR 1.1 APTT 39.9 H Sodium 130 L Potassium 4.7 Chloride 95 L Carbon Dioxide 25.0 Anion Gap 10 BUN 65 H Creatinine 7.81 H* Estim Creat Clear Calc 8.28 Est GFR (MDRD) Af Amer 9 L Est GFR (MDRD) Non-Af 7 L BUN/Creatinine Ratio 8.3 L Glucose 110 H Calcium 8.3 L Total Bilirubin 0.60 AST 10 L ALT 18 Alkaline Phosphatase 118 H Troponin I 0.025 Total Protein 6.4 Albumin 3.0 L Globulin 3.4 Albumin/Globulin Ratio 0.9 Blood Type Antibody Screen 07/23/19 10:35 WBC RBC Hgb Hct MCV MCH MCHC RDW Std Deviation RDW Coeff of Eleni Plt Count MPV Immature Gran % (Auto) Neut % (Auto) Lymph % (Auto) [place] % (Auto) Eos % (Auto) Baso % (Auto) Absolute Neuts (auto) Absolute Lymphs (auto) Nucleated RBC % Differential Comment PT INR APTT Sodium Potassium Chloride Carbon Dioxide Anion Gap BUN Creatinine Estim Creat Clear Calc Est GFR (MDRD) Af Amer Est GFR (MDRD) Non-Af BUN/Creatinine Ratio Glucose Calcium Total Bilirubin AST ALT Alkaline Phosphatase Troponin I Total Protein Albumin Globulin Albumin/Globulin Ratio Blood Type A NEGATIVE Antibody Screen NEGATIVE Assessment/Plan All Active Problems (Last Reviewed 07/18/19 @ 13:21 by Evelyn Thurman, ARMEN-C) Acute blood loss anemia (Acute) GI bleed (Acute) COPD exacerbation (Acute) Acute respiratory failure with hypoxia (Acute) The patient is a 68 y/o M w/ PMHx: Chronic COPD, Chronic AF, RAVEN, CAD s/p CABG x 3 and PCI, PAD s/p R common iliac angioplasty and PCI, Diastolic CHF, BPH, Tobacco use, AOCD, HTN, HLD, ESRD on HD following w/ Dr. Alaniz, recently discharged 07/07/2019 following evaluation for acute blood loss anemia secondary to GI bleed with dialysis port bleeding with history of prior admission 05/19/2019 to [facility] in [place] secondary to ongoing bleeding with repeat EGDs at that time and cauterization of lesions with multiple blood transfusions as well as acute mild COPD exacerbation at that time who now re-presents to the [facility] on 07/23/2019 with history of ongoing black tarry appearing stools from his end ileostomy x2 days with concurrent fatigue, increasing dyspnea over the last 3 to 4 days progressively worsening prompting ED presentation. 1. Acute on chronic GI Bleed w/ resultant Acute chronic blood Loss Anemia iron deficiency anemia: She with history of frequent bleeding from his ileostomy, prior transfer to tertiary facility with EGD at that time and intervention, still ongoing bleeding, presents today with hemo globin 7.3, recent discharge with hemoglobin at that time 8.6, black tarry stools from ostomy. Discussed patient with general surgery given recent need for transfer and amenable to admission to [facility], will maintain on telemetry, continue planned PRBC administration per initiation of ED, will maintain n.p.o. status, obtain serial H&H's, maintain on IV PPI, GI consulted and following. 2. CAD: Status post CABG x3 and PCI, holding aspirin given acute presentation, continue metoprolol, statin therapy with specific hold parameters. 3. PAD/PVD: Patient status post right common iliac angioplasty and PCI, PVD history, holding aspirin given acute presentation, continue BP regimen with specific hold parameters, continue statin therapy. 4. Diastolic CHF: Compensated appearance, holding aspirin given acute presentation as noted #1, dialysis plan today, continue metoprolol, statin. 5. Chronic atrial fibrillation: Holding aspirin therapy given acute presentation as noted #1, continue beta-lesa therapy with specific hold parameters. 6. ESRD: Patient on dialysis following with Dr. michael acosta, due today, will consult. 7. Tobacco Abuse: Encouraged cessation, inpatient consultation per RT, NR if desired. 8. Chronic COPD: ATC duonebs, PRN albuterol, HOB, IS parameters. 9. BPH: Continue home Flomax regimen. 10. RAVEN: We will continue home nightly BiPAP. 11. GERD: IV PPI. 12. DVT prophylaxis: SCDs, defer chemoprophylaxis given acute presentation. 13. CODE STATUS: Full code. Code Visit Inpatient E&M: 31996 Init Hosp L3
--- NOTE | 2019-07-23 14:46 | PCM.CONS.GEN ---
Reason for Consult Date of Consultation: 07/23/19 History of Present Illness: The patient is a 68 year old M presented due to tarry stool x2 days from his end ileostomy. Patient has a complex past medical history CAD/CABG, end-stage renal disease with dialysis, COPD, ischemic colon requiring end ileostomy and history of GI bleed. Patient was previously scoped in March for an EGD and no evidence of bleeding was found. Patient went to [facility] had a capsule which was negative. Per and and his , patient did go to [facility] and they found 6 AVMs but they cannot tell me when that was but per notes it may have been in May. 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 Has been also getting iron before dialysis, so the patient stated it was hard to tell if the stool was black and tarry. Patient's current hemoglobin is 7.3. Past Medical History Past Medical History (Chronic Problems): Chronic Problems (Last Reviewed 07/18/19 @ 13:21 by MABLE FlowersC) Chronic atrial fibrillation (Chronic) Acute on chronic blood loss anemia (Chronic) RAVEN (obstructive sleep apnea) (Chronic) AHI 426. ESRD (end stage renal disease) (Chronic) History of non-ST elevation myocardial infarction (NSTEMI) (Chronic 01/21/11) Stented coronary artery (Chronic) 2003, JASON to circumflex ; 10/13/2009 tsfer from [facility] to [facility], total of 5 bare metal stents to RCA per Dr. Barrientos @ [facility]: 3.5 X 18 [employer] Presser, followed distally by 3.0 X12 [employer] Presser to distal RCA;3.5 X 15 [employer] Presser, followed proximally by 4.0 X 18 [employer] Presser to Mid RCA; 4.0 X 18 [employer] Presser to Proximal RCA S/P CABG x 3 (Chronic 01/26/11) [facility] per Dr. Osito Hernandez: NICHOLAS to LAD, reverse SVG to OMbranch of CX, reverse SVG to PDA of RCA. PDA endarterectomy. Status post peripheral artery angioplasty with insertion of stent (Chronic ~2010) Right common iliac, [facility] Atherosclerotic heart disease of [place] coronary artery without angina pectoris (Chronic) 2003, JASON to circumflex ; 10/10/2009 tsfer from [facility] to [facility], total of 5 bare metal stents to RCA; CABG X 3 vessels @ [facility] 01/31/2011 (critical left main and restenosis of RCA stents) Diastolic CHF (Chronic) HLD (hyperlipidemia) (Chronic) HTN (hypertension) (Chronic) PAD (peripheral artery disease) (Chronic) COPD (chronic obstructive pulmonary disease) (Chronic) Tobacco dependence (Chronic) Anemia (Chronic) BPH (benign prostatic hyperplasia) (Chronic) Medical History: Medical History (Last Reviewed 07/18/19 @ 13:21 by SEUN Flowers) COPD exacerbation (Acute) J44.1 Acute respiratory failure with hypoxia (Acute) J96.01 ESRD (end stage renal disease) (Chronic) N18.6 History of non-ST elevation myocardial infarction (NSTEMI) (Chronic) Onset Date: 01/21/11 I25.2 Atherosclerotic heart disease of [place] coronary artery without angina pectoris (Chronic) I25.10 2003, JASON to circumflex ; 10/10/2009 tsfer from [facility] to [facility], total of 5 bare metal stents to RCA; CABG X 3 vessels @ [facility] 01/31/2011 (critical left main and restenosis of RCA stents) Diastolic CHF (Chronic) I50.30 HLD (hyperlipidemia) (Chronic) E78.5 HTN (hypertension) (Chronic) I10 PAD (peripheral artery disease) (Chronic) I73.9 COPD (chronic obstructive pulmonary disease) (Chronic) J44.9 Tobacco dependence (Chronic) F17.200 Anemia (Chronic) D64.9 BPH (benign prostatic hyperplasia) (Chronic) N40.0 Allergies irbesartan [From Avapro] Allergy (Severe, Verified 07/10/19 09:06) Blisters zolpidem [From Ambien] Adverse Reaction (Severe, Verified 07/10/19 09:06) made me go crazy, memory loss amoxicillin Adverse Reaction (Intermediate, Verified 07/10/19 09:06) PASSES BLOOD IN STOOL TOLERATES ZOSYN PASSES BLOOD IN STOOL metronidazole [From Flagyl] Adverse Reaction (Verified 07/10/19 09:06) pt states he got palpitations and nose bleed. pt states he got palpitations and nose bleed. Home Medications: Ambulatory Orders Medication Instructions Recorded ALPRAZolam [Xanax] 0.5 mg PO BID 07/23/19 Albuterol Aerosols [Ventolin 1 inh INHALATION Q4H PRN PRN 07/23/19 Aerosols] Aspirin [Aspirin, Baby] 81 mg PO QHS 07/23/19 Budesonide Aerosol [Pulmicort 1 inh INHALATION BID 07/23/19 Respules] Formoterol Fumarate [Perforomist] 20 mcg INHALATION BID 07/23/19 Ipratropium/Albuterol Sulfate 1 inh INHALATION Q4H PRN PRN 07/23/19 [Iprat-Albut 0.5-3(2.5) mg/3 ml] Metoprolol Succinate 50 - 100 mg PO BID 07/23/19 Omeprazole 40 mg PO BID 07/23/19 Rosuvastatin Calcium [Crestor] 40 mg PO QHS 07/23/19 Tamsulosin HCl [Flomax] 0.8 mg PO DAILY 07/23/19 Surgical History: Surgical History (Last Reviewed 07/18/19 @ 13:21 by SEUN Flowers) Stented coronary artery (Chronic) Z95.5 2003, JASON to circumflex ; 10/13/2009 tsfer from [facility] to [facility], total of 5 bare metal stents to RCA per Dr. Barrientos @ [facility]: 3.5 X 18 Del[employer] Presser, followed distally by 3.0 X12 [employer] Presser to distal RCA;3.5 X 15 Del[employer] Presser, followed proximally by 4.0 X 18 Del[employer] Presser to Mid RCA; 4.0 X 18 Del[employer] Presser to Proximal RCA S/P CABG x 3 (Chronic) Onset Date: 01/26/11 Z95.1 [facility] per Dr. Osito Hernandez: NICHOLAS to LAD, reverse SVG to OMbranch of CX, reverse SVG to PDA of RCA. PDA endarterectomy. Status post peripheral artery angioplasty with insertion of stent (Chronic) Onset Date: ~2010 Z95.820 Right common iliac, [facility] history of surgically created arteriovenous fistula s/p fistulogram Onset Date: ~09/28/18 Surgical History: coronary bypass surgery, tonsillectomy, - Psychiatric History: No pertinent psych hx Smoking Status: Current every day smoker Tobacco Use: Cigarettes - *Family History Maternal Family History: Family History (Last Reviewed 07/18/19 @ 13:21 by SEUN Flowers) Father CAD (coronary artery disease) Hypertension Kidney disease CVA (cerebral vascular accident) Other Cancer History Items: Heart Disease Paternal Family History: Family History (Last Reviewed 07/18/19 @ 13:21 by SEUN Flowers) Father CAD (coronary artery disease) Hypertension Kidney disease CVA (cerebral vascular accident) Other Cancer History Items: Heart Disease, Hypertension, Renal Disease Review of Systems Constitutional: Denies: Anorexia, Fever HEENT: Denies: Difficulty Swallowing Cardiovascular: Denies: Chest Pain Respiratory: Reports: Shortness of Breath Gastrointestinal: Reports: Melena. Denies: Abdominal Pain Genitourinary: Denies: Dysuria Skin: Denies: Rash Neurological: Denies: Slurred speech Psychiatric: Denies: Anxiety Hematologic/ Lymphatic: Reports: Anemia, Easy Bleeding Patient Problems: Active and Suspected Problems (Last Reviewed 07/18/19 @ 13:21 by SEUN Flowers) Upper GI bleed (Acute) - Physical Exam General: Alert, Oriented x3, Cooperative, No apparent distress Lungs: Normal air movement Abdomen: Soft, Non Tender - No peritoneal signs, Non-Distended, - - Right lower quadrant and ileostomy with black tarry stool in bag Extremities: Edema, - - left arm fistula- good thrill Neurological: Cranial nerves II-XII grossly intact Psych/Mental Status: Normal Affect Vital Signs Temp Pulse Resp BP Pulse Ox 97.2 F L 90 28 H 144/60 H 98 07/23/19 09:49 07/23/19 14:22 07/23/19 14:22 07/23/19 14:22 07/23/19 14:22 Oxygen Flow Rate (L/min) 2 Oxygen Delivery Method Nasal Cannula Weight: 148 lb Body Mass Index (BMI) 23.8 Finger Stick Blood Glucose 200 Microbiology Past 72 Hours 07/23/19 10:35 Stool Occult Blood (ESA) - Final Stool Occult Blood Positive Laboratory Tests Past 24 Hrs 07/23/19 07/23/19 07/23/19 10:35 10:35 10:35 WBC 12.4 H RBC 2.19 L Hgb 7.3 L Hct 24.3 L MCV 111.0 H MCH 33.3 H MCHC 30.0 L RDW Std Deviation 83.4 H RDW Coeff of Eleni 20.7 H Plt Count 184 MPV 9.5 Immature Gran % (Auto) 0.700 Neut % (Auto) 85.2 H Lymph % (Auto) 6.0 L Sully % (Auto) 6.0 Eos % (Auto) 1.9 Baso % (Auto) 0.2 Absolute Neuts (auto) 10.5 H Absolute Lymphs (auto) 0.74 L Nucleated RBC % 0 Differential Comment COMMENT PT 14.3 INR 1.1 APTT 39.9 H Sodium 130 L Potassium 4.7 Chloride 95 L Carbon Dioxide 25.0 Anion Gap 10 BUN 65 H Creatinine 7.81 H* Estim Creat Clear Calc 8.28 Est GFR (MDRD) Af Amer 9 L Est GFR (MDRD) Non-Af 7 L BUN/Creatinine Ratio 8.3 L Glucose 110 H Calcium 8.3 L Total Bilirubin 0.60 AST 10 L ALT 18 Alkaline Phosphatase 118 H Troponin I 0.025 Total Protein 6.4 Albumin 3.0 L Globulin 3.4 Albumin/Globulin Ratio 0.9 Blood Type Antibody Screen 07/23/19 10:35 WBC RBC Hgb Hct MCV MCH MCHC RDW Std Deviation RDW Coeff of Eleni Plt Count MPV Immature Gran % (Auto) Neut % (Auto) Lymph % (Auto) Sully % (Auto) Eos % (Auto) Baso % (Auto) Absolute Neuts (auto) Absolute Lymphs (auto) Nucleated RBC % Differential Comment PT INR APTT Sodium Potassium Chloride Carbon Dioxide Anion Gap BUN Creatinine Estim Creat Clear Calc Est GFR (MDRD) Af Amer Est GFR (MDRD) Non-Af BUN/Creatinine Ratio Glucose Calcium Total Bilirubin AST ALT Alkaline Phosphatase Troponin I Total Protein Albumin Globulin Albumin/Globulin Ratio Blood Type A NEGATIVE Antibody Screen NEGATIVE Assessment/Plan All Active Problems (Last Reviewed 07/18/19 @ 13:21 by Evelyn Thurman, CHANNEL MACHINE OPERATOR-C) Acute blood loss anemia (Acute) GI bleed (Acute) Upper GI bleed (Acute) COPD exacerbation (Acute) Acute respiratory failure with hypoxia (Acute) 68-year-old male with a recurrent GI bleed, history of small bowel AVMs Discussed with patient and his spouse would not plan to do a repeat EGD as in March 2019 this was negative. Discussed with patient that if he were to have increased bleeding he would need to be transferred to a tertiary care facility with GI. Did also discuss with patient that he would need to follow-up with the GI doctor for a repeat scope to look for additional AVMs as well, as an outpatient if he does not require transfer. Pt is getting 2 units packed red blood cells. Lizzie Tavares M.D. Pager: [phone] [facility] [address] [place] [address], [facility], [address] [place] [address] Office: [phone] Code Visit Inpatient E&M: 55150 Init Hosp L2
[2019-07-23] MEDS: ALPRAZolam 0.5 MG Tablet PO ×2 (17:32→23:11)
[2019-07-23] MEDS: Albuterol 2.5 MG/3 ML VIAL.NEB. INHALATION (19:03)
[2019-07-23 20:18] LABS: Hematocrit 24.7 % (40-54); Hemoglobin 7.8 g/dL (13.0-16.5)
--- NOTE | 2019-07-23 20:55 | NURSING ---
blood verified with jaycee mancuso and infusing per dialysis per order
[2019-07-23] MEDS: Atorvastatin Calcium 80 MG Tablet PO (23:11)
[2019-07-23] MEDS: Metoprolol(XL)Succ 100 MG Tablet PO (23:12)
--- NOTE | 2019-07-23 23:13 | DIALYSIS ---
Hemodialysis x 3 hours with 2K bath; Pt refused 3.5 hours d/t cramping. Removed = -2400; Cramping present last 10 min of treatment. LUAVF needles pulled; stasis complete; DSD applied; +bruit +thrill. Report given.
[2019-07-23] MEDS: Acetaminophen 325 MG Tablet 650 MG PO (23:15)
[2019-07-23] MEDS: MELATONIN 3 MG TABLET PO (23:15)
--- NOTE | 2019-07-23 23:17 | DIALYSIS ---
Received 1 unit PRBC's with dialysis treatment.
[2019-07-24] VITALS (11 sets, daily range): BP systolic 117–133; BP diastolic 54–56; PULSE 71–95; RESP 12–26; TEMP 37.1; O2SAT 93–100
[2019-07-24] MEDS: Ipratropium/Albuterol Sulfate 3 ML AMPUL.NEB INHALATION ×2 (00:26→07:26)
[2019-07-24 00:47] LABS: Hematocrit 27.9 % (40-54); Hemoglobin 8.9 g/dL (13.0-16.5)
[2019-07-24] MEDS: cycloBENZAPRine HCl 5 MG TABLET PO ×2 (01:37→06:19)
[2019-07-24] MEDS: oxyCODONE 5 MG Tablet PO ×2 (01:37→06:19)
[2019-07-24 03:58] LABS: Absolute Lymphocyte Count 0.64 X10^3/uL (0.83-4.51); Absolute Neutrophil Count 10.9 X10^3/uL (2.0-7.7); Basophil# 0.03 X10^3/uL; Basophil% 0.2 % (0-1); Eosinophils% 0.8 % (0-5); Hematocrit 26.8 % (40-54); Hemoglobin 8.4 g/dL (13.0-16.5); Lymphocyte # 0.64 X10^3/ul (4.0); Lymphocyte % 5.1 % (19-41); Mean Corp Hgb Conc 31.3 g/dL (32-36); Mean Corpuscular Hgb 32.6 pg (27.0-32.0); Mean Corpuscular Volume 103.9 fL (80-94); Monocyte# 0.84 X10^3/uL; Monocyte% 6.7 % (0-10); NRBC Flagged by Analyzer 0 % (0-5); Neutrophil # 10.93 X10^3/uL (2.7-7.7); Neutrophil % 86.5 % (47-70); POSITIVE MORPHOLOGY YES; Platelet Count 180 K/mm3 (150-450); RBC Distribution Width CV 22.4 % (11.6-14.6); RBC Distribution Width SD 83.7 fl (35.1-43.9); Red Blood Count 2.58 M/mm3 (4.6-6.2); White Blood Count 12.6 K/mm3 (4.4-11.0)
[2019-07-24 04:12] LABS: Differential Indicated SCAN CRITERIA MET
[2019-07-24 04:13] LABS: Anion Gap 10 (5-15); BUN 35 mg/dL (7-18); BUN/Creat Ratio 6.9 RATIO (10-20); Calcium,Total 7.4 mg/dL (8.5-10.1); Chloride 100 mmol/L (98-107); Creatinine, Serum 5.09 mg/dL (0.70-1.30); EST Glomerular Filtration Rate 12 mL/min (>60); Est Glom Filt Rate - Afr Amer 15 mL/min (>60); Estimated Creatinine Clearance 13.17 ml/min; Glucose 105 mg/dL (74-106); Potassium 3.7 mmol/L (3.5-5.1); Sodium Level 140 mmol/L (136-145)
[2019-07-24 04:41] LABS: Platelet Estimate ADEQUATE (ADEQ)
[2019-07-24 04:42] LABS: Anisocytosis 2+; Hypochromasia 1+; Macrocytosis 2+
[2019-07-24] MEDS: Budesonide Respules 0.5 MG/2 ML AMPUL.NEB. INHALATION (07:26)
[2019-07-24] MEDS: Metoprolol(XL)Succ 25 MG Tablet PO (07:54)
[2019-07-24] MEDS: Tamsulosin HCl 0.4 MG Capsule 0.8 MG PO (07:54)
[2019-07-24] MEDS: ALPRAZolam 0.5 MG Tablet PO (07:55)
--- NOTE | 2019-07-24 08:02 | PN.SURG_ITS ---
Patient Problems: Active and Suspected Problems (Last Reviewed 07/18/19 @ 13:21 by Evelyn Thurman NP-C) Upper GI bleed (Acute) Subjective: Patient's current hemoglobin is 8.4 initially was 7.3 on admit after 2 units went up to 8.9 the 8.4. Patient denies any abdominal pain, on admit patient did have black tarry stools of the ileostomy currently he has brown stools - Physical Exam General: Alert, Cooperative, No apparent distress Abdomen: Soft, Non Tender, Non-Distended, - - Ileostomy pink with brown stool in bag Vital Signs Temp Pulse Resp BP Pulse Ox 98.7 F 71 20 H 133/56 H 100 07/24/19 07:49 07/24/19 07:54 07/24/19 07:49 07/24/19 07:49 07/24/19 07:49 Oxygen Flow Rate (L/min) 2 Oxygen Delivery Method Nasal Cannula Weight: 145 lb 8 oz Body Mass Index (BMI) 24.0 Finger Stick Blood Glucose 200 Intake and Output for Last 24 Hours 07/22/19 07/23/19 07/24/19 23:59 23:59 23:59 Intake Total 871 / 871 50 / 50 Output Total 4950 / 4950 200 / 200 Balance -4079 / -4079 -150 / -150 Microbiology Past 72 Hours 07/23/19 10:35 Stool Occult Blood (ESA) - Final Stool Occult Blood Positive Laboratory Tests Past 24 Hrs 07/23/19 07/23/19 07/23/19 10:35 10:35 10:35 WBC 12.4 H RBC 2.19 L Hgb 7.3 L Hct 24.3 L MCV 111.0 H MCH 33.3 H MCHC 30.0 L RDW Std Deviation 83.4 H RDW Coeff of Eleni 20.7 H Plt Count 184 MPV 9.5 Immature Gran % (Auto) 0.700 Neut % (Auto) 85.2 H Lymph % (Auto) 6.0 L Cook % (Auto) 6.0 Eos % (Auto) 1.9 Baso % (Auto) 0.2 Absolute Neuts (auto) 10.5 H Absolute Lymphs (auto) 0.74 L Nucleated RBC % 0 Differential Comment COMMENT Platelet Estimate Hypochromasia Anisocytosis Macrocytosis PT 14.3 INR 1.1 APTT 39.9 H Sodium 130 L Potassium 4.7 Chloride 95 L Carbon Dioxide 25.0 Anion Gap 10 BUN 65 H Creatinine 7.81 H* Estim Creat Clear Calc 8.28 Est GFR (MDRD) Af Amer 9 L Est GFR (MDRD) Non-Af 7 L BUN/Creatinine Ratio 8.3 L Glucose 110 H Calcium 8.3 L Total Bilirubin 0.60 AST 10 L ALT 18 Alkaline Phosphatase 118 H Troponin I 0.025 Total Protein 6.4 Albumin 3.0 L Globulin 3.4 Albumin/Globulin Ratio 0.9 Hep Bs Antigen Blood Type Antibody Screen Crossmatch 07/23/19 07/23/19 07/23/19 10:35 10:35 20:00 WBC RBC Hgb 7.8 L Hct 24.7 L MCV MCH MCHC RDW Std Deviation RDW Coeff of Eleni Plt Count MPV Immature Gran % (Auto) Neut % (Auto) Lymph % (Auto) Cook % (Auto) Eos % (Auto) Baso % (Auto) Absolute Neuts (auto) Absolute Lymphs (auto) Nucleated RBC % Differential Comment Platelet Estimate Hypochromasia Anisocytosis Macrocytosis PT INR APTT Sodium Potassium Chloride Carbon Dioxide Anion Gap BUN Creatinine Estim Creat Clear Calc Est GFR (MDRD) Af Amer Est GFR (MDRD) Non-Af BUN/Creatinine Ratio Glucose Calcium Total Bilirubin AST ALT Alkaline Phosphatase Troponin I Total Protein Albumin Globulin Albumin/Globulin Ratio Hep Bs Antigen Blood Type A NEGATIVE Antibody Screen NEGATIVE Crossmatch See Detail 07/24/19 07/24/19 07/24/19 00:20 03:34 03:34 WBC 12.6 H RBC 2.58 L Hgb 8.9 L 8.4 L Hct 27.9 L 26.8 L MCV 103.9 H D MCH 32.6 H MCHC 31.3 L RDW Std Deviation 83.7 H RDW Coeff of Eleni 22.4 H Plt Count 180 MPV 10.0 Immature Gran % (Auto) 0.700 Neut % (Auto) 86.5 H Lymph % (Auto) 5.1 L Cook % (Auto) 6.7 Eos % (Auto) 0.8 Baso % (Auto) 0.2 Absolute Neuts (auto) 10.9 H Absolute Lymphs (auto) 0.64 L Nucleated RBC % 0 Differential Comment Platelet Estimate ADEQUATE Hypochromasia 1+ Anisocytosis 2+ Macrocytosis 2+ PT INR APTT Sodium 140 Potassium 3.7 Chloride 100 Carbon Dioxide 30.0 Anion Gap 10 BUN 35 H Creatinine 5.09 H Estim Creat Clear Calc 13.17 Est GFR (MDRD) Af Amer 15 L Est GFR (MDRD) Non-Af 12 L BUN/Creatinine Ratio 6.9 L Glucose 105 Calcium 7.4 L Total Bilirubin AST ALT Alkaline Phosphatase Troponin I Total Protein Albumin Globulin Albumin/Globulin Ratio Hep Bs Antigen Blood Type Antibody Screen Crossmatch 07/24/19 03:34 WBC RBC Hgb Hct MCV MCH MCHC RDW Std Deviation RDW Coeff of Eleni Plt Count MPV Immature Gran % (Auto) Neut % (Auto) Lymph % (Auto) Cook % (Auto) Eos % (Auto) Baso % (Auto) Absolute Neuts (auto) Absolute Lymphs (auto) Nucleated RBC % Differential Comment Platelet Estimate Hypochromasia Anisocytosis Macrocytosis PT INR APTT Sodium Potassium Chloride Carbon Dioxide Anion Gap BUN Creatinine Estim Creat Clear Calc Est GFR (MDRD) Af Amer Est GFR (MDRD) Non-Af BUN/Creatinine Ratio Glucose Calcium Total Bilirubin AST ALT Alkaline Phosphatase Troponin I Total Protein Albumin Globulin Albumin/Globulin Ratio Hep Bs Antigen Pending Blood Type Antibody Screen Crossmatch Medical Necessity - Tobacco Use Smoking Status: Current every day smoker Tobacco Use: Cigarettes Assessment/Plan All Active Problems (Last Reviewed 07/18/19 @ 13:21 by Evelyn Thurman, CLINICAL FIELD SPECIALIST-C) Acute blood loss anemia (Acute) GI bleed (Acute) Upper GI bleed (Acute) COPD exacerbation (Acute) Acute respiratory failure with hypoxia (Acute) 68-year-old male with a recurrent GI bleed, history of small bowel AVMs Patient's current hemoglobin is 8.4 however his black tarry stools has changed to brown stools currently. Patient has any more black tarry stools he would need to be transferred to [place] to see GI otherwise he needs follow-up with his GI doctor (at [place]) within a week which last time he never followed up with anyone after leaving the hospital. No plans for any surgical intervention, in the future patient comes to the ER with black tarry stools he needs to be transferred to a tertiary care facility with GI. Lizzie Tavares M.D. Pager: [phone] [facility] [address] [place] [address], [facility], [address] [place] [address] Office: [phone] Code Visit Inpatient E&M: 33674 Subs Hosp L1
--- NOTE | 2019-07-24 09:55 | DCINST_ITS ---
- Discharge Diagnoses Current Active Problems: Current Active and Chronic Problems (Last Reviewed 07/18/19 @ 13:21 by SEUN Flowers) Acute on chronic blood loss anemia (Chronic) Upper GI bleed (Acute) ESRD (end stage renal disease) (Chronic) You will use the following diet at home:: Renal (restricted protein/sodium) Your food should be the consistency of: Regular Discharge Activity: Return to Normal Activity Allergies/Adverse Reactions: Allergies irbesartan [From Avapro] Allergy (Severe, Verified 07/10/19 09:06) Blisters zolpidem [From Ambien] Adverse Reaction (Severe, Verified 07/10/19 09:06) made me go crazy, memory loss amoxicillin Adverse Reaction (Intermediate, Verified 07/10/19 09:06) PASSES BLOOD IN STOOL TOLERATES ZOSYN PASSES BLOOD IN STOOL metronidazole [From Flagyl] Adverse Reaction (Verified 07/10/19 09:06) pt states he got palpitations and nose bleed. pt states he got palpitations and nose bleed. Medications to take at Discharge ALPRAZolam [Xanax] 0.5 mg PO BID 07/23/19 Albuterol Aerosols [Ventolin Aerosols] 1 inh INHALATION Q4H PRN PRN 07/23/19 Aspirin [Aspirin, Baby] 81 mg PO QHS 07/23/19 Budesonide Aerosol [Pulmicort Respules] 1 inh INHALATION BID 07/23/19 Formoterol Fumarate [Perforomist] 20 mcg INHALATION BID 07/23/19 Ipratropium/Albuterol Sulfate [Iprat-Albut 0.5-3(2.5) mg/3 ml] 1 inh INHALATION Q4H PRN PRN 07/23/19 Metoprolol Succinate 50 - 100 mg PO BID 07/23/19 Omeprazole 40 mg PO BID 07/23/19 Rosuvastatin Calcium [Crestor] 40 mg PO QHS 07/23/19 Tamsulosin HCl [Flomax] 0.8 mg PO DAILY 07/23/19 Primary Care Physician: Tania Berger NP-C [Primary Care Provider] - Please follow up with your Primary Care Physician in: in 3-5 days Test Results: Test results from this visit will be discussed in further detail at your follow- up appointment, if applicable. Please Follow Up With: Caleb Alaniz MD When: for Dialysis Please Follow Up With: YOUR GI DOCTOR FOR ENDOSCOPY When: CALL FOR APPOINTMENT Proposed Discharge Date: 07/24/19
--- NOTE | 2019-07-24 10:00 | PCM.DC.SUM ---
Discharge Date and Diagnosis - Problem List Patient Problems: Active and Suspected Problems (Last Reviewed 07/18/19 @ 13:21 by SEUN Flowers) Upper GI bleed (Acute) Date of Admission: 07/23/19 Date of Discharge: 07/24/19 - Primary Discharge Diagnosis Active and Suspected Problems (Last Reviewed 07/18/19 @ 13:21 by SEUN Flowers) Upper GI bleed (Acute) - Secondary Discharge Diagnosis Chronic Problems (Last Reviewed 07/18/19 @ 13:21 by SEUN Flowers) Chronic atrial fibrillation (Chronic) Acute on chronic blood loss anemia (Chronic) RAVEN (obstructive sleep apnea) (Chronic) AHI 426. ESRD (end stage renal disease) (Chronic) History of non-ST elevation myocardial infarction (NSTEMI) (Chronic 01/21/11) Stented coronary artery (Chronic) 2003, JASON to circumflex ; 10/13/2009 tsfer from [facility] to [facility], total of 5 bare metal stents to RCA per Dr. Barrientos @ [facility]: 3.5 X 18 Director [employer], followed distally by 3.0 X12 [employer] to distal RCA;3.5 X 15 [employer], followed proximally by 4.0 X 18 [employer] to Mid RCA; 4.0 X 18 [employer] to Proximal RCA S/P CABG x 3 (Chronic 01/26/11) [facility] per Dr. Osito Hernandez: NICHOLAS to LAD, reverse SVG to OMbranch of CX, reverse SVG to PDA of RCA. PDA endarterectomy. Status post peripheral artery angioplasty with insertion of stent (Chronic ~2010) Right common iliac, [facility] Atherosclerotic heart disease of [place] coronary artery without angina pectoris (Chronic) 2003, JASON to circumflex ; 10/10/2009 tsfer from [facility] to [facility], total of 5 bare metal stents to RCA; CABG X 3 vessels @ [facility] 01/31/2011 (critical left main and restenosis of RCA stents) Diastolic CHF (Chronic) HLD (hyperlipidemia) (Chronic) HTN (hypertension) (Chronic) PAD (peripheral artery disease) (Chronic) COPD (chronic obstructive pulmonary disease) (Chronic) Tobacco dependence (Chronic) Anemia (Chronic) BPH (benign prostatic hyperplasia) (Chronic) Hospital Course and Treatment Imaging Results: Clinical Impression(s) from Imaging Studies Chest X-Ray 07/23/19 10:04 IMPRESSION: Moderate size bibasilar pleural effusions are identified which have increased. 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 Hemoglobin on admission was 7.3 patient was admitted to regular nursing floor transfused with 2 unit PRBC. Consultation was placed to general surgery patient was seen by Dr. Sow who recommended the patient could be discharged home since hemoglobin has stayed stable in the GI bleed has stopped. Patient was instructed to follow-up with his security architect for a repeat endoscopic evaluation within a week. He was instructed to call for appointment. Patient Problems: Active and Suspected Problems (Last Reviewed 07/18/19 @ 13:21 by Evelyn Thurman NP-C) Upper GI bleed (Acute) - Physical Exam General: Alert HEENT: Atraumatic Lungs: Diminished Cardiovascular: Regular rate, Regular Rhythm Psych/Mental Status: Flat Affect Vital Signs Temp Pulse Resp BP Pulse Ox 98.7 F 71 20 H 133/56 H 100 07/24/19 07:49 07/24/19 07:54 07/24/19 07:49 07/24/19 07:49 07/24/19 07:49 Oxygen Flow Rate (L/min) 2 Oxygen Delivery Method Bi-pap Weight: 65.998 kg Body Mass Index (BMI) 24.0 Finger Stick Blood Glucose 200 Intake and Output for Last 24 Hours 07/22/19 07/23/19 07/24/19 23:59 23:59 23:59 Intake Total 871 / 871 50 / 50 Output Total 4950 / 4950 200 / 200 Balance -4079 / -4079 -150 / -150 Microbiology Past 72 Hours 07/23/19 10:35 Stool Occult Blood (ESA) - Final Stool Occult Blood Positive Laboratory Tests Past 24 Hrs 07/23/19 07/23/19 07/23/19 10:35 10:35 10:35 WBC 12.4 H RBC 2.19 L Hgb 7.3 L Hct 24.3 L MCV 111.0 H MCH 33.3 H MCHC 30.0 L RDW Std Deviation 83.4 H RDW Coeff of Eleni 20.7 H Plt Count 184 MPV 9.5 Immature Gran % (Auto) 0.700 Neut % (Auto) 85.2 H Lymph % (Auto) 6.0 L [place] % (Auto) 6.0 Eos % (Auto) 1.9 Baso % (Auto) 0.2 Absolute Neuts (auto) 10.5 H Absolute Lymphs (auto) 0.74 L Nucleated RBC % 0 Differential Comment COMMENT Platelet Estimate Hypochromasia Anisocytosis Macrocytosis PT 14.3 INR 1.1 APTT 39.9 H Sodium 130 L Potassium 4.7 Chloride 95 L Carbon Dioxide 25.0 Anion Gap 10 BUN 65 H Creatinine 7.81 H* Estim Creat Clear Calc 8.28 Est GFR (MDRD) Af Amer 9 L Est GFR (MDRD) Non-Af 7 L BUN/Creatinine Ratio 8.3 L Glucose 110 H Calcium 8.3 L Total Bilirubin 0.60 AST 10 L ALT 18 Alkaline Phosphatase 118 H Troponin I 0.025 Total Protein 6.4 Albumin 3.0 L Globulin 3.4 Albumin/Globulin Ratio 0.9 Hep Bs Antigen Blood Type Antibody Screen Crossmatch 07/23/19 07/23/19 07/23/19 10:35 10:35 20:00 WBC RBC Hgb 7.8 L Hct 24.7 L MCV MCH MCHC RDW Std Deviation RDW Coeff of Eleni Plt Count MPV Immature Gran % (Auto) Neut % (Auto) Lymph % (Auto) [place] % (Auto) Eos % (Auto) Baso % (Auto) Absolute Neuts (auto) Absolute Lymphs (auto) Nucleated RBC % Differential Comment Platelet Estimate Hypochromasia Anisocytosis Macrocytosis PT INR APTT Sodium Potassium Chloride Carbon Dioxide Anion Gap BUN Creatinine Estim Creat Clear Calc Est GFR (MDRD) Af Amer Est GFR (MDRD) Non-Af BUN/Creatinine Ratio Glucose Calcium Total Bilirubin AST ALT Alkaline Phosphatase Troponin I Total Protein Albumin Globulin Albumin/Globulin Ratio Hep Bs Antigen Blood Type A NEGATIVE Antibody Screen NEGATIVE Crossmatch See Detail 07/24/19 07/24/19 07/24/19 00:20 03:34 03:34 WBC 12.6 H RBC 2.58 L Hgb 8.9 L 8.4 L Hct 27.9 L 26.8 L MCV 103.9 H D MCH 32.6 H MCHC 31.3 L RDW Std Deviation 83.7 H RDW Coeff of Eleni 22.4 H Plt Count 180 MPV 10.0 Immature Gran % (Auto) 0.700 Neut % (Auto) 86.5 H Lymph % (Auto) 5.1 L [place] % (Auto) 6.7 Eos % (Auto) 0.8 Baso % (Auto) 0.2 Absolute Neuts (auto) 10.9 H Absolute Lymphs (auto) 0.64 L Nucleated RBC % 0 Differential Comment Platelet Estimate ADEQUATE Hypochromasia 1+ Anisocytosis 2+ Macrocytosis 2+ PT INR APTT Sodium 140 Potassium 3.7 Chloride 100 Carbon Dioxide 30.0 Anion Gap 10 BUN 35 H Creatinine 5.09 H Estim Creat Clear Calc 13.17 Est GFR (MDRD) Af Amer 15 L Est GFR (MDRD) Non-Af 12 L BUN/Creatinine Ratio 6.9 L Glucose 105 Calcium 7.4 L Total Bilirubin AST ALT Alkaline Phosphatase Troponin I Total Protein Albumin Globulin Albumin/Globulin Ratio Hep Bs Antigen Blood Type Antibody Screen Crossmatch 07/24/19 03:34 WBC RBC Hgb Hct MCV MCH MCHC RDW Std Deviation RDW Coeff of Eleni Plt Count MPV Immature Gran % (Auto) Neut % (Auto) Lymph % (Auto) [place] % (Auto) Eos % (Auto) Baso % (Auto) Absolute Neuts (auto) Absolute Lymphs (auto) Nucleated RBC % Differential Comment Platelet Estimate Hypochromasia Anisocytosis Macrocytosis PT INR APTT Sodium Potassium Chloride Carbon Dioxide Anion Gap BUN Creatinine Estim Creat Clear Calc Est GFR (MDRD) Af Amer Est GFR (MDRD) Non-Af BUN/Creatinine Ratio Glucose Calcium Total Bilirubin AST ALT Alkaline Phosphatase Troponin I Total Protein Albumin Globulin Albumin/Globulin Ratio Hep Bs Antigen Pending Blood Type Antibody Screen Crossmatch Discharge Diet: Renal Diet Discharge Activity: Return to Normal Activity Home Medications: Medications to take at Discharge ALPRAZolam [Xanax] 0.5 mg PO BID 07/23/19 Albuterol Aerosols [Ventolin Aerosols] 1 inh INHALATION Q4H PRN PRN 07/23/19 Aspirin [Aspirin, Baby] 81 mg PO QHS 07/23/19 Budesonide Aerosol [Pulmicort Respules] 1 inh INHALATION BID 07/23/19 Formoterol Fumarate [Perforomist] 20 mcg INHALATION BID 07/23/19 Ipratropium/Albuterol Sulfate [Iprat-Albut 0.5-3(2.5) mg/3 ml] 1 inh INHALATION Q4H PRN PRN 07/23/19 Metoprolol Succinate 50 - 100 mg PO BID 07/23/19 Omeprazole 40 mg PO BID 07/23/19 Rosuvastatin Calcium [Crestor] 40 mg PO QHS 07/23/19 Tamsulosin HCl [Flomax] 0.8 mg PO DAILY 07/23/19 Primary Care Physician: Tania Berger NP-C [Primary Care Provider] - Please follow up with your Primary Care Physician in: in 3-5 days Please Follow Up With: Caleb Alaniz MD When: for Dialysis Please Follow Up With: YOUR GI DOCTOR FOR ENDOSCOPY When: CALL FOR APPOINTMENT Disposition: Home Minutes spent on discharge:: 35 Patient Condition:: Stable Medical Necessity - Tobacco Use Smoking Status: Current every day smoker Tobacco Use: Cigarettes Meaningful Use Info Meaningful Use Diagnoses (Choose all that apply): None applicable Code Visit OBSV E&M: 04881 Observation care discharge
[2019-07-24 10:10] LABS: Hepatitis B Surface Antigen Non-Reactive (Nonreactive)
--- NOTE | 2019-07-24 11:05 | CASEMGMT ---
RN CM Note: Pt is being discharged. Intro role of CM to and patient in room. Both deny any new dc needs and plan is for pt to return home. Per nursing, no dc needs identified. F/U appointment has been made with SEUN Gibson for 07/30/19. Deangelo UMAÑAN RN ACM
--- NOTE | 2019-07-24 11:10 | PCM.CONS.R ---
Problem List (1) ESRD (end stage renal disease) Status: Chronic (2) Anemia Status: Chronic Qualifiers: Anemia type: unspecified type Qualified Code(s): D64.9 - Anemia, unspecified Consultation - Renal 07/24/19 PCP/ Referring MD: Requesting physician: Dr saldana Primary care physician: SEUN Poe Reason for Consultation:: ESRD - History of Present Illness History of Present Illness: The patient is a 68 year old M, well known to us. ESRD on Home dialysis. admitted with GI bleed. s/p dialysis yesterday. - Allergies Allergies: Allergies irbesartan [From Avapro] Allergy (Severe, Verified 07/10/19 09:06) Blisters zolpidem [From Ambien] Adverse Reaction (Severe, Verified 07/10/19 09:06) made me go crazy, memory loss amoxicillin Adverse Reaction (Intermediate, Verified 07/10/19 09:06) PASSES BLOOD IN STOOL TOLERATES ZOSYN PASSES BLOOD IN STOOL metronidazole [From Flagyl] Adverse Reaction (Verified 07/10/19 09:06) pt states he got palpitations and nose bleed. pt states he got palpitations and nose bleed. - Past Medical History Past Medical History (Chronic Problems): Chronic Problems (Last Reviewed 07/18/19 @ 13:21 by Evelyn Thurman NP-C) Chronic atrial fibrillation (Chronic) Acute on chronic blood loss anemia (Chronic) RAVEN (obstructive sleep apnea) (Chronic) AHI 426. ESRD (end stage renal disease) (Chronic) History of non-ST elevation myocardial infarction (NSTEMI) (Chronic 01/21/11) Stented coronary artery (Chronic) 2003, JASON to circumflex ; 10/13/2009 tsfer from [facility] to [facility], total of 5 bare metal stents to RCA per Dr. Barrientos @ [facility]: 3.5 X 18 Soft Shoe Dancer, followed distally by 3.0 X12 Soft Shoe Dancer to distal RCA;3.5 X 15 Soft Shoe Dancer, followed proximally by 4.0 X 18 Soft Shoe Dancer to Mid RCA; 4.0 X 18 Soft Shoe Dancer to Proximal RCA S/P CABG x 3 (Chronic 01/26/11) [facility] per Dr. Osito Hernandez: NICHOLAS to LAD, reverse SVG to OMbranch of CX, reverse SVG to PDA of RCA. PDA endarterectomy. Status post peripheral artery angioplasty with insertion of stent (Chronic ~2010) Right common iliac, [facility] Atherosclerotic heart disease of [place] coronary artery without angina pectoris (Chronic) 2003, JASON to circumflex ; 10/10/2009 tsfer from [facility] to [facility], total of 5 bare metal stents to RCA; CABG X 3 vessels @ [facility] 01/31/2011 (critical left main and restenosis of RCA stents) Diastolic CHF (Chronic) HLD (hyperlipidemia) (Chronic) HTN (hypertension) (Chronic) PAD (peripheral artery disease) (Chronic) COPD (chronic obstructive pulmonary disease) (Chronic) Tobacco dependence (Chronic) Anemia (Chronic) BPH (benign prostatic hyperplasia) (Chronic) - Past Surgical History Surgical History: coronary bypass surgery, tonsillectomy, - - CABG x3, multiple PCI coronary arteries, right common iliac angioplasty and stenting, aVF, tonsillectomy, multiple endoscopies with intervention. - Social History Smoking Status: Current every day smoker Alcohol: None Drugs: None - Family History Maternal Family History: Family History (Last Reviewed 07/18/19 @ 13:21 by SEUN Flowers) Father CAD (coronary artery disease) Hypertension Kidney disease CVA (cerebral vascular accident) Other Cancer History Items: Heart Disease Paternal Family History: Family History (Last Reviewed 07/18/19 @ 13:21 by SEUN Flowers) Father CAD (coronary artery disease) Hypertension Kidney disease CVA (cerebral vascular accident) Other Cancer History Items: Heart Disease, Hypertension, Renal Disease Review of Systems Constitutional: Denies: Chills, Fever, Weight Change HEENT: Denies: Head Aches, Sinus Congestion, Sinus Drainage Cardiovascular: Denies: Chest Pain, Palpitations Respiratory: Denies: Cough, Shortness of breath at rest, Sputum production Gastrointestinal: Denies: Abdominal Pain, Nausea, Vomiting Genitourinary: Denies: Dysuria Musculoskeletal: Denies: Joint Pain, Joint Tenderness Skin: Denies: Rash, Wounds Neurological: Denies: Numbness, Tingling, Focal weakness Psychiatric: Denies: Anxiety, Depression, Homicidal Ideations, Suicidal Ideations Hematologic/ Lymphatic: Denies: Easy Bruising, Easy Bleeding - Physical Exam General: Alert, Oriented x3, Cooperative HEENT: Atraumatic, PERRLA, EOMI, Normocephalic Neck: Supple, No JVD, Negative Carotid Bruits Lungs: Clear to auscultation, Normal air movement Cardiovascular: Regular rate, No murmurs Abdomen: Bowel Sounds Present, Soft, Non Tender Extremities: No edema, Capillary Refill Less than 3 Seconds Skin: No rashes, No breakdown Musculoskeletal: No Tenderness to Palpation of Joints or Extremities Neurological: Cranial nerves II-XII grossly intact Psych/Mental Status: Normal Affect, Appropriate Vital Signs Temp Pulse Resp BP Pulse Ox 98.7 F 71 20 H 133/56 H 100 07/24/19 07:49 07/24/19 07:54 07/24/19 07:49 07/24/19 07:49 07/24/19 07:49 Oxygen Flow Rate (L/min) 2 Oxygen Delivery Method Bi-pap Weight: 65.998 kg Body Mass Index (BMI) 24.0 Finger Stick Blood Glucose 200 Intake and Output for Last 24 Hours 07/22/19 07/23/19 07/24/19 23:59 23:59 23:59 Intake Total 871 / 871 50 / 50 Output Total 4950 / 4950 200 / 200 Balance -4079 / -4079 -150 / -150 Microbiology Past 72 Hours 07/23/19 10:35 Stool Occult Blood (ESA) - Final Stool Occult Blood Positive Laboratory Tests Past 24 Hrs 07/23/19 07/23/19 07/23/19 10:35 10:35 20:00 WBC RBC Hgb 7.8 L Hct 24.7 L MCV MCH MCHC RDW Std Deviation RDW Coeff of Eleni Plt Count MPV Immature Gran % (Auto) Neut % (Auto) Lymph % (Auto) [place] % (Auto) Eos % (Auto) Baso % (Auto) Absolute Neuts (auto) Absolute Lymphs (auto) Nucleated RBC % Platelet Estimate Hypochromasia Anisocytosis Macrocytosis Sodium Potassium Chloride Carbon Dioxide Anion Gap BUN Creatinine Estim Creat Clear Calc Est GFR (MDRD) Af Amer Est GFR (MDRD) Non-Af BUN/Creatinine Ratio Glucose Calcium Hep Bs Antigen Blood Type A NEGATIVE Antibody Screen NEGATIVE Crossmatch See Detail 07/24/19 07/24/19 07/24/19 00:20 03:34 03:34 WBC 12.6 H RBC 2.58 L Hgb 8.9 L 8.4 L Hct 27.9 L 26.8 L MCV 103.9 H D MCH 32.6 H MCHC 31.3 L RDW Std Deviation 83.7 H RDW Coeff of Eleni 22.4 H Plt Count 180 MPV 10.0 Immature Gran % (Auto) 0.700 Neut % (Auto) 86.5 H Lymph % (Auto) 5.1 L [place] % (Auto) 6.7 Eos % (Auto) 0.8 Baso % (Auto) 0.2 Absolute Neuts (auto) 10.9 H Absolute Lymphs (auto) 0.64 L Nucleated RBC % 0 Platelet Estimate ADEQUATE Hypochromasia 1+ Anisocytosis 2+ Macrocytosis 2+ Sodium 140 Potassium 3.7 Chloride 100 Carbon Dioxide 30.0 Anion Gap 10 BUN 35 H Creatinine 5.09 H Estim Creat Clear Calc 13.17 Est GFR (MDRD) Af Amer 15 L Est GFR (MDRD) Non-Af 12 L BUN/Creatinine Ratio 6.9 L Glucose 105 Calcium 7.4 L Hep Bs Antigen Blood Type Antibody Screen Crossmatch 07/24/19 03:34 WBC RBC Hgb Hct MCV MCH MCHC RDW Std Deviation RDW Coeff of Eleni Plt Count MPV Immature Gran % (Auto) Neut % (Auto) Lymph % (Auto) [place] % (Auto) Eos % (Auto) Baso % (Auto) Absolute Neuts (auto) Absolute Lymphs (auto) Nucleated RBC % Platelet Estimate Hypochromasia Anisocytosis Macrocytosis Sodium Potassium Chloride Carbon Dioxide Anion Gap BUN Creatinine Estim Creat Clear Calc Est GFR (MDRD) Af Amer Est GFR (MDRD) Non-Af BUN/Creatinine Ratio Glucose Calcium Hep Bs Antigen Non-Reactive Blood Type Antibody Screen Crossmatch Assessment/Plan All Active Problems (Last Reviewed 07/18/19 @ 13:21 by Evelyn Thurman, WALLCOVERING TEXTURER-C) Acute blood loss anemia (Acute) GI bleed (Acute) Upper GI bleed (Acute) COPD exacerbation (Acute) Acute respiratory failure with hypoxia (Acute) ESRD. HD yesterday. No acute indications today Anemia. s/p PRBC dyspnea. better after dialysis
== END 2019-07-24 11:09 | disposition home or self-care (01) ==
LOC: ED 10:07 → MS3 07-24 06:55
PROVIDERS: Internal Medicine Nephrology; Admitting Provider Family Medicine; Emergency Provider Emergency Medicine; Family Provider Nurse Practitioner Family; PCP Nurse Practitioner Family; Referring Provider Family Medicine; Visit Provider Internal Medicine
DX: K92.2 Gastrointestinal hemorrhage, unspecified (principal); E78.5 Hyperlipidemia, unspecified; N40.0 Benign prostatic hyperplasia without lower urinary tract symptoms; I13.2 Hypertensive heart and chronic kidney disease with heart failure and with stage 5 chronic kidney disease, or end stage renal disease; I50.32 Chronic diastolic (congestive) heart failure; I25.10 Atherosclerotic heart disease of native coronary artery without angina pectoris; G47.33 Obstructive sleep apnea (adult) (pediatric); I48.20 Chronic atrial fibrillation, unspecified; E11.51 Type 2 diabetes mellitus with diabetic peripheral angiopathy without gangrene; D62 Acute posthemorrhagic anemia; F17.210 Nicotine dependence, cigarettes, uncomplicated; D50.9 Iron deficiency anemia, unspecified; K21.9 Gastro-esophageal reflux disease without esophagitis; I25.2 Old myocardial infarction; J44.9 Chronic obstructive pulmonary disease, unspecified; N18.6 End stage renal disease; Z79.899 Other long term (current) drug therapy; Z99.2 Dependence on renal dialysis; Z79.82 Long term (current) use of aspirin; Z95.1 Presence of aortocoronary bypass graft; Z93.2 Ileostomy status; Q27.33 Arteriovenous malformation of digestive system vessel
CPT/HCPCS: 36415; 36430; 71045; 80048; 80053; 82274; 84484; 85014; 85018; 85025; 85610; 85730; 86850; 86900; 86901; 86920; 86922; 87340; 90937; 93005; 94002; 94003; 94640; 96365; 97162; 97166; 99218; 99285; J7040; J7050; P9016; A4216; G0257; G0378

== ENCOUNTER → 2019-07-30 20:06 | Outpatient (CLI) | payer MEDICARE, SELFPAY ==
[2019-07-06 17:39] VITALS: BMI 24.2
[2019-07-23 15:09] VITALS: BMI 24.0
[2019-07-30] MEDS: Zolpidem Tartrate 5 MG Tablet PO (21:50)
== END ==
PROVIDERS: Family Provider Nurse Practitioner Family; PCP Nurse Practitioner Family; Referring Provider Nurse Practitioner Acute Care; Visit Provider Nurse Practitioner Acute Care
DX: G47.33 Obstructive sleep apnea (adult) (pediatric) (principal)
CPT/HCPCS: 95811

== ENCOUNTER 2019-08-08 12:55 | Inpatient (IN) | payer MEDICARE, SELFPAY ==
[2019-07-23 15:09] VITALS: BMI 24.0
[2019-08-08] VITALS (14 sets, daily range): BP systolic 140–157; BP diastolic 51–67; PULSE 88–107; RESP 12–26; TEMP 36.7–37.4; O2SAT 92–99; BMI 24.9; BMI 23.8
--- NOTE | 2019-08-08 13:23 | EKG12_ITS ---
Test Reason : SOB Blood Pressure : / mmHG Vent. Rate : 095 BPM Atrial Rate : 095 BPM P-R Int : 192 ms QRS Dur : 094 ms QT Int : 414 ms P-R-T Axes : -01 066 098 degrees QTc Int : 520 ms Sinus rhythm with Premature supraventricular complexes Nonspecific ST and T wave abnormality Prolonged QT Abnormal ECG Confirmed by KRISTINE MONTENEGRO, SMITHA ([id number]), department editor SHIRA HURD ([id number]) on 08/10/2019 1:17:39 PM Referred By: Sharon De La Cruz Confirmed By:ANGELINA CARMONA MD
--- NOTE | 2019-08-08 13:28 | RAD_ITS ---
STUDY: X-RAY CHEST REASON FOR EXAM: Male, 68 years old. Shortness of breath/disc. TECHNIQUE: Single AP portable view of the chest. COMPARISON: Comparison is made with prior study July 23, 2016. FINDINGS: EKG electrodes are seen. There is evidence of vascular congestion and mild degree of CHF. Blunting of both constraint angles with bibasilar atelectasis and/or infiltrates. Sternal cerclage wires and vascular clips are present from a prior sternotomy and coronary artery bypass graft procedure (CABG). Normal mediastinum and justyn. Normal visualized pulmonary arteries. There is atherosclerotic calcification of the aortic arch with tortuosity. There are diffuse degenerative changes of the visualized thoracic spine. Normal visualized ribs, clavicles, and shoulders. There is no demonstrated abnormality of the visualized soft tissue structures of the upper abdomen. RAD/Chest 1 View (Portable) IMPRESSION: CHF. Small bilateral effusions with underlying atelectasis and/or infiltration. Electronically Signed: Deven Hensley, at 13:50 EDT , Service support ,
[2019-08-08 13:37] LABS: Absolute Lymphocyte Count 1.06 X10^3/uL (0.83-4.51); Absolute Neutrophil Count 6.8 X10^3/uL (2.0-7.7); Basophil# 0.03 X10^3/uL; Basophil% 0.3 % (0-1); Eosinophil# 0.21 X10^3/uL; Eosinophils% 2.3 % (0-5); Hematocrit 26.8 % (40-54); Hemoglobin 8.4 g/dL (13.0-16.5); Lymphocyte # 1.06 X10^3/ul (4.0); Lymphocyte % 11.8 % (19-41); Mean Corp Hgb Conc 31.3 g/dL (32-36); Mean Corpuscular Hgb 32.7 pg (27.0-32.0); Mean Corpuscular Volume 104.3 fL (80-94); Mean Platelet Vol. 9.7 fl (6.2-12.0); Monocyte# 0.85 X10^3/uL; Monocyte% 9.5 % (0-10); NRBC Flagged by Analyzer 0 % (0-5); Neutrophil # 6.77 X10^3/uL (2.7-7.7); Neutrophil % 75.8 % (47-70); POSITIVE MORPHOLOGY YES; Platelet Count 180 K/mm3 (150-450); RBC Distribution Width CV 19.5 % (11.6-14.6); RBC Distribution Width SD 74.7 fl (35.1-43.9); Red Blood Count 2.57 M/mm3 (4.6-6.2)
[2019-08-08 13:41] LABS: Differential Indicated SCAN CRITERIA MET
[2019-08-08] MEDS: Ipratropium/Albuterol Sulfate 3 ML AMPUL.NEB INHALATION (13:41)
[2019-08-08 13:52] LABS: Anion Gap 7 (5-15); BUN 37 mg/dL (7-18); BUN/Creat Ratio 7.3 RATIO (10-20); Calcium,Total 9.3 mg/dL (8.5-10.1); Chloride 94 mmol/L (98-107); Creatinine, Serum 5.07 mg/dL (0.70-1.30); EST Glomerular Filtration Rate 12 mL/min (>60); Est Glom Filt Rate - Afr Amer 15 mL/min (>60); Estimated Creatinine Clearance 12.76 ml/min; Glucose 117 mg/dL (74-106); Potassium 3.7 mmol/L (3.5-5.1); Sodium Level 132 mmol/L (136-145)
[2019-08-08 13:59] LABS: Hypochromasia 2+; Macrocytosis 1+; Platelet Estimate ADEQUATE (ADEQ)
[2019-08-08] MEDS: MethylPREDNISolone 125 MG/2 ML Vial 60 MG IV (14:22)
--- NOTE | 2019-08-08 14:24 | ED.DCSUM_ITS ---
- ER Visit Summary Date of Service: 08/08/19 Chief Complaint: [Shortness of breath] History of Present Illness: The patient is a 68 M [presents the emergency department with worsening shortness of breath over the last 3 days. Patient complains of a cough that is mostly nonproductive. Denies any fever. Patient states that he is just not been feeling well he has these exacerbations of severe dyspnea related to coughing at times. Patient denies any chest pain. Patient has history of COPD, CHF, A. fib, anemia secondary to prior GI bleed. Patient has end-stage renal disease and he does dialysis at home which he did do today. Patient supposed to wear 2 L of O2 at night typically however over the last several days has been wearing it [id number].] Physical Examination: [HEENT-PERRLA, EOMI. Cranial nerves II through XII grossly intact. TMs clear. Mucous membranes moist. No adenopathy. Cardiovascular-regular rate and rhythm without murmur or ectopy Lungs-breath sounds bilaterally. Patient has some faint rales in the bases. Patient has some faint expiratory wheezes bilaterally. Patient has mild tachypnea. No accessory muscle use or retractions. Abdomen-normoactive bowel sounds, soft, nontender, no rebound or rigidity, no peritoneal signs. Extremities-intact ?4, normal range of motion, normal pulses, atraumatic] Test Results: [EKG obtained on arrival showed sinus rhythm with a ventricular rate of [address] changes. CBC with differential shows a white count of 9.0, hemoglobin 8.4, hematocrit 26.8, platelets 180. Chemistries unremarkable. BUN was 37 and creatinine 5.07. Troponin is less than 0.015. Chest x-ray showed small bilateral effusions and CHF. There is some atelectasis and cannot rule out infiltrates.] Emergency Department Course and Treatment: [Was given DuoNeb aerosol as well as Solu-Medrol 60 mg IV.] Treatment Plan: [Admit for further treatment of his dyspnea] Disposition: [Admit] Impression: [COPD exacerbation CHF Dyspnea Anemia] This note was generated with [employer] dictation software. It may contain incorrect words, spelling, and punctuation that were not noted in review of the chart prior to signing ED Disposition - Plan for ED Patient: Referrals: Tania Berger NP-C [Primary Care Provider] -
--- NOTE | 2019-08-08 14:29 | ED.RN ---
dr consulted on sepsis. he states i don't think it is infectious. believes it is a combination of his copd and [place] [id number]
--- NOTE | 2019-08-08 15:12 | HP.PCM_ITS ---
History of Present Illness Date of Admission: 08/08/19 Chief Complaint: SHORTNESS OF BREATH The patient is a 68 year old M with an extensive past medical history as listed. He was admitted through the ED on [id number] with complaint of shortness of breath which have been going on for couple of weeks but worsened over the last 3 days prior to admission. He had an assisted cough which was nonproductive and complained of assisted orthopnea and PND. He also had some wheezing. Patient is on baseline 2 L of oxygen at home which is post use at night but states he uses it all the time nowadays on account of shortness of breath. He still admits to smoking and states he smokes about 5 sticks of cigarettes a day which she is cut down from about half pack previously. Patient has ESRD and does modalities at home every other day. He states he had dialysis today and only took about 0.4 L to get down to his baseline dry weight of 67.5 kg. He does not want to go below his baseline dry weight because of severe cramping which comes on. He has been following up with both pulmonology on account of COPD and states that he is scheduled to hop picker his BiPAP machine tomorrow but shortness of breath got so bad that he decided to come in today. Vitals in the ED was significant for respiratory rate of 24 and sodium of 132 as well as creatinine of 5.07. Hemoglobin was 8.4. It has been over that patient is chronically anemic. He was on 4 L of oxygen at time of review initial troponin was negative. He has been admitted to be managed for acute on chronic hypoxic respiratory failure due to COPD exacerbation. [] Past Medical History Past Medical History (Chronic Problems): Chronic Problems (Last Reviewed 07/18/19 @ 13:21 by Evelyn Thurman, ARMEN-C) Chronic atrial fibrillation (Chronic) Acute on chronic blood loss anemia (Chronic) RAVEN (obstructive sleep apnea) (Chronic) AHI 426. ESRD (end stage renal disease) (Chronic) History of non-ST elevation myocardial infarction (NSTEMI) (Chronic 01/21/11) Stented coronary artery (Chronic) 2003, JASON to circumflex ; 10/13/2009 tsfer from [facility] to [facility], total of 5 bare metal stents to RCA per Dr. Barrientos @ [facility]: 3.5 X 18 Pipe Insulator Helper, followed distally by 3.0 X12 Pipe Insulator Helper to distal RCA;3.5 X 15 Pipe Insulator Helper, followed proximally by 4.0 X 18 Pipe Insulator Helper to Mid RCA; 4.0 X 18 Pipe Insulator Helper to Proximal RCA S/P CABG x 3 (Chronic 01/26/11) [facility] per Dr. Osito Hernandez: NICHOLAS to LAD, reverse SVG to OMbranch of CX, reverse SVG to PDA of RCA. PDA endarterectomy. Status post peripheral artery angioplasty with insertion of stent (Chronic ~2010) Right common iliac, [facility] Atherosclerotic heart disease of [place] coronary artery without angina pectoris (Chronic) 2004, JASON to circumflex ; 10/10/2009 tsfer from [facility] to [facility], total of 5 bare metal stents to RCA; CABG X 3 vessels @ [facility] 01/31/2011 (critical left main and restenosis of RCA stents) Diastolic CHF (Chronic) HLD (hyperlipidemia) (Chronic) HTN (hypertension) (Chronic) PAD (peripheral artery disease) (Chronic) COPD (chronic obstructive pulmonary disease) (Chronic) Tobacco dependence (Chronic) Anemia (Chronic) BPH (benign prostatic hyperplasia) (Chronic) Medical History: Medical History (Last Reviewed 07/18/19 @ 13:21 by Evelyn Thurman NP-C) COPD exacerbation (Acute) J44.1 Acute respiratory failure with hypoxia (Acute) J96.01 ESRD (end stage renal disease) (Chronic) N18.6 History of non-ST elevation myocardial infarction (NSTEMI) (Chronic) Onset Date: 01/21/11 I25.2 Atherosclerotic heart disease of [place] coronary artery without angina pectoris (Chronic) I25.10 2004, JASON to circumflex ; 10/10/2009 tsfer from [facility] to [facility], total of 5 bare metal stents to RCA; CABG X 3 vessels @ [facility] 01/31/2011 (critical left main and restenosis of RCA stents) Diastolic CHF (Chronic) I50.30 HLD (hyperlipidemia) (Chronic) E78.5 HTN (hypertension) (Chronic) I10 PAD (peripheral artery disease) (Chronic) I73.9 COPD (chronic obstructive pulmonary disease) (Chronic) J44.9 Tobacco dependence (Chronic) F17.200 Anemia (Chronic) D64.9 BPH (benign prostatic hyperplasia) (Chronic) N40.0 Allergies irbesartan [From Avapro] Allergy (Severe, Verified 08/08/19 13:00) Blisters zolpidem [From Ambien] Adverse Reaction (Severe, Verified 08/08/19 13:00) made me go crazy, memory loss amoxicillin Adverse Reaction (Intermediate, Verified 08/08/19 13:00) PASSES BLOOD IN STOOL TOLERATES ZOSYN PASSES BLOOD IN STOOL metronidazole [From Flagyl] Adverse Reaction (Verified 08/08/19 13:00) pt states he got palpitations and nose bleed. pt states he got palpitations and nose bleed. Home Medications: Ambulatory Orders Medication Instructions Recorded ALPRAZolam [Xanax] 0.5 mg PO BID 07/23/19 Albuterol Aerosols [Ventolin 1 inh INHALATION Q4H PRN PRN 07/23/19 Aerosols] Aspirin [Aspirin, Baby] 81 mg PO QHS 07/23/19 Budesonide Aerosol [Pulmicort 1 inh INHALATION BID 07/23/19 Respules] Formoterol Fumarate [Perforomist] 20 mcg INHALATION BID 07/23/19 Ipratropium/Albuterol Sulfate 1 inh INHALATION Q4H PRN PRN 07/23/19 [Iprat-Albut 0.5-3(2.5) mg/3 ml] Omeprazole 40 mg PO BID 07/23/19 Rosuvastatin Calcium [Crestor] 40 mg PO QHS 07/23/19 Tamsulosin HCl [Flomax] 0.8 mg PO DAILY 07/23/19 Metoprolol Succinate [Toprol Xl] 50 - 100 mg PO BID 08/08/19 Surgical History: Surgical History (Last Reviewed 07/18/19 @ 13:21 by Evelyn Thurman NP-C) Stented coronary artery (Chronic) Z95.5 2003, JASON to circumflex ; 10/13/2009 tsfer from [facility] to [facility], total of 5 bare metal stents to RCA per Dr. Barrientos @ [facility]: 3.5 X 18 Pipe Insulator Helper, followed distally by 3.0 X12 Pipe Insulator Helper to distal RCA;3.5 X 15 Pipe Insulator Helper, followed proximally by 4.0 X 18 Pipe Insulator Helper to Mid RCA; 4.0 X 18 Pipe Insulator Helper to Proximal RCA S/P CABG x 3 (Chronic) Onset Date: 01/26/11 Z95.1 [facility] per Dr. Osito Esterline: NICHOLAS to LAD, reverse SVG to OMbranch of CX, reverse SVG to PDA of RCA. PDA endarterectomy. Status post peripheral artery angioplasty with insertion of stent (Chronic) Onset Date: ~2010 Z95.820 Right common iliac, [facility] history of surgically created arteriovenous fistula s/p fistulogram Onset Date: ~09/28/18 Surgical History: coronary bypass surgery, tonsillectomy, - - CABG x3, multiple PCI coronary arteries, right common iliac angioplasty and stenting, aVF, tonsillectomy, multiple endoscopies with intervention. Psychiatric History: Anxiety Smoking Status: Current every day smoker Tobacco Use: Cigarettes - *Family History Maternal Family History: Family History (Last Reviewed 07/18/19 @ 13:21 by SEUN Flowers) Father CAD (coronary artery disease) Hypertension Kidney disease CVA (cerebral vascular accident) Other Cancer History Items: Heart Disease Paternal Family History: Family History (Last Reviewed 07/18/19 @ 13:21 by SEUN Flowers) Father CAD (coronary artery disease) Hypertension Kidney disease CVA (cerebral vascular accident) Other Cancer History Items: Heart Disease, Hypertension, Renal Disease Review of Systems Constitutional: Reports: Chills, Malaise, Weakness, Fatigue. Denies: Fever Eyes: Denies: Blurred vision HEENT: Denies: Head Aches, Sinus Congestion, Sinus Drainage Cardiovascular: Reports: Orthopnea. Denies: Chest Pain, Chest Pressure, Edema, Light Headedness, Palpitations, Paroxysmal Noc. Dyspnea, Syncope Respiratory: Reports: Cough, Shortness of Breath, Shortness of breath at rest, Shortness of breath upon exertion, Wheezing. Denies: Sputum production Gastrointestinal: Denies: Abdominal Pain, Nausea, Vomiting Genitourinary: Denies: Dysuria Musculoskeletal: Denies: Joint Pain, Joint Tenderness Skin: Denies: Rash, Wounds Neurological: Denies: Numbness, Tingling, Focal weakness Psychiatric: Denies: Anxiety, Depression, Homicidal Ideations, Suicidal Ideations Hematologic/ Lymphatic: Denies: Easy Bruising, Easy Bleeding VTE Information - Inpt Only VTE Present on Admission: No VTE Pharm Prophylaxis ordered?: Yes - Physical Exam Vitals/I&O's: Vital Signs Temp Pulse Resp BP Pulse Ox 98.1 F 93 24 H 150/58 H 94 08/08/19 14:44 10/23/19 14:44 08/08/19 14:44 08/08/19 14:44 08/08/19 14:44 Oxygen Flow Rate (L/min) 2 Oxygen Delivery Method Nasal Cannula Weight: 154 lb 5.177 oz Body Mass Index (BMI) 24.9 Finger Stick Blood Glucose 200 General: Alert, Oriented x3, Cooperative, No apparent distress, Lethargic HEENT: Atraumatic, PERRLA, EOMI, Normocephalic Oral: Dry Mucosa Neck: Supple, No JVD, Negative Carotid Bruits Lungs: Tachypneic, - - DIMINISHED BREATH SOUNDS BIBASALLY, NO WHEEZES OR CRACKLES Cardiovascular: Regular rate, Regular Rhythm, Normal S1, Normal S2, No murmurs Abdomen: Bowel Sounds Present, Soft, Non Tender, Non-Distended, - - colostomy bag containing dark stool Extremities: No edema, Capillary Refill Less than 3 Seconds Skin: No rashes, No breakdown Musculoskeletal: No Tenderness to Palpation of Joints or Extremities, - - AV fistula with good thrill in LUE Lymphatic: No Cervical, Supraclavicular, or Inguinal Adenopathy Neurological: Cranial nerves II-XII grossly intact, Neuro grossly intact, Motor Exam 5/5 strength throughout Psych/Mental Status: Normal Affect, Appropriate, Alert and oriented to time, place, person, mood and affect Laboratory Results 08/08/19 13:06: WBC 9.0, RBC 2.57 L, Hgb 8.4 L, Hct 26.8 L, MCV 104.3 H, MCH 32.7 H, MCHC 31.3 L, RDW Std Deviation 74.7 H, RDW Coeff of Eleni 19.5 H, Plt Count 180, MPV 9.7, Immature Gran % (Auto) 0.300, Neut % (Auto) 75.8 H, Lymph % (Auto) 11.8 L, Walker % (Auto) 9.5, Eos % (Auto) 2.3, Baso % (Auto) 0.3, Absolute Neuts (auto) 6.8, Absolute Lymphs (auto) 1.06, Nucleated RBC % 0, Platelet Estimate ADEQUATE, Hypochromasia 2+, Macrocytosis 1+ 08/08/19 13:06: Sodium 132 L, Potassium 3.7, Chloride 94 L, Carbon Dioxide 31.0, Anion Gap 7, BUN 37 H, Creatinine 5.07 H, Estim Creat Clear Calc 12.76, Est GFR (MDRD) Af Amer 15 L, Est GFR (MDRD) Non-Af 12 L, BUN/Creatinine Ratio 7.3 L, Glucose 117 H, Calcium 9.3, Troponin I < 0.015 Diagnostic Data Chest X-Ray 08/08/19 13:28 IMPRESSION: CHF. Small bilateral effusions with underlying atelectasis and/or infiltration. Electronically Signed: Deven Ayden, at 13:50 EDT , Service support , Assessment/Plan All Active Problems (Last Reviewed 07/18/19 @ 13:21 by Evelyn Thurman, DOMESTIC LAUNDRY WORKER-C) Acute blood loss anemia (Acute) GI bleed (Acute) Upper GI bleed (Acute) COPD exacerbation (Acute) Acute respiratory failure with hypoxia (Acute) 68 y/o admitted with a complaint of shortness of breath 1. Acute on chronic hypoxic respiratory failure due to COPD exacerbation * admit to PCU with telemetry * start BIPAP to maintain sats>90% * titrate oxygen to maintain sats>90% * Breathing treatments as needed * IV soluMedrol 40 mg every 8 * Check respiratory panel * Continue budesonide and formoterol as well as DuoNeb's. * 2. ESRD on HD * Home hemodialysis every other day. Last session was today and took of 0.4 L. * consult nephrology for hemodialysis;' doesnt want to go below his dry weight of 67.5Kg due to severe cramping * 3. Chronic iron deficiency anemia: * Hemoglobin is 8.4. Has had extensive GI work-up in the past. * Continue iron supplements. * No evidence of overt bleeding now. 4. COPD: In exacerbation is under 1. 5. Hypertension: On metoprolol succinate 50 mill grams twice daily. 6. BPH: On Flomax. 7. CAD status post stent and CABG: On rosuvastatin and metoprolol. Also on aspirin\ DVT prophylaxis: Heparin CODE STATUS: Full code * Patient counseled extensively about different types of CODE STATUS including full code, DNR CCA and DNR CCA. Patient elects to be full code. Total [id number]-nc-pbxs time 16 minutes. Code Visit Inpatient E&M: 89387 Init Hosp L3 Procedures: 65485 Advncd Care Plan 30 Min
--- NOTE | 2019-08-08 15:33 | CASEMGMT ---
Per ED triage note, pt is being set up for bipap. Pt already has cpap at home. Pt was seen in [facility] sleep lab on 07/12/19 and 07/30/19 for bipap sleep study and titration and according to Jenni in the SL, pt was set up to come in 08/09/19 at 0900 for bipap equipment set up. Per Jenni, pt wanted to get bipap sooner but was not able to get all equipment set up sooner, so pt told SL that he would just come to ED so that he could get his bipap sooner. Per Jenni, pt can be set up with bipap equipment within 24 hours of discharge. This RN CM to follow. SStaten RN CM
[2019-08-08] MEDS: Albuterol 2.5 MG/3 ML VIAL.NEB. INHALATION (20:00)
[2019-08-08] MEDS: Budesonide Respules 0.5 MG/2 ML AMPUL.NEB. INHALATION (20:00)
[2019-08-08] MEDS: Metoprolol(XL)Succ 50 MG Tablet PO (22:00)
[2019-08-08] MEDS: Pantoprazole Sodium 40 MG Tablet PO (22:00)
[2019-08-08] MEDS: Aspirin 81 MG TAB.CHEW PO (22:00)
[2019-08-08] MEDS: ALPRAZolam 0.5 MG Tablet PO (22:00)
[2019-08-08] MEDS: Atorvastatin Calcium 80 MG Tablet PO (22:00)
[2019-08-09] VITALS (12 sets, daily range): BP systolic 139–140; BP diastolic 59–60; PULSE 81–92; RESP 12–24; TEMP 36.7–37.1; O2SAT 93–99
[2019-08-09] MEDS: cycloBENZAPRine HCl 5 MG TABLET PO (01:21)
[2019-08-09] MEDS: 0.9% Saline Lock 10 ML Syringe IV ×3 (01:22→13:56)
[2019-08-09 05:25] LABS: Absolute Lymphocyte Count 0.43 X10^3/uL (0.83-4.51); Absolute Neutrophil Count 2.5 X10^3/uL (2.0-7.7); Hematocrit 22.4 % (40-54); Lymphocyte # 0.43 X10^3/ul (4.0); Lymphocyte % 14.4 % (19-41); Mean Corp Hgb Conc 31.3 g/dL (32-36); Mean Corpuscular Hgb 32.3 pg (27.0-32.0); Mean Corpuscular Volume 103.2 fL (80-94); Mean Platelet Vol. 9.4 fl (6.2-12.0); Monocyte# 0.08 X10^3/uL; Monocyte% 2.7 % (0-10); NRBC Flagged by Analyzer 0 % (0-5); Neutrophil # 2.46 X10^3/uL (2.7-7.7); Neutrophil % 82.2 % (47-70); POSITIVE DIFFERENTIAL YES; POSITIVE MORPHOLOGY YES; Platelet Count 149 K/mm3 (150-450); RBC Distribution Width SD 72.2 fl (35.1-43.9); Red Blood Count 2.17 M/mm3 (4.6-6.2)
[2019-08-09 05:53] LABS: Anion Gap 8 (5-15); BUN 55 mg/dL (7-18); BUN/Creat Ratio 8.5 RATIO (10-20); Calcium,Total 8.4 mg/dL (8.5-10.1); Chloride 93 mmol/L (98-107); Creatinine, Serum 6.46 mg/dL (0.70-1.30); EST Glomerular Filtration Rate 9 mL/min (>60); Est Glom Filt Rate - Afr Amer 11 mL/min (>60); Estimated Creatinine Clearance 10.01 ml/min; Glucose 142 mg/dL (74-106); Potassium 4.4 mmol/L (3.5-5.1); Sodium Level 131 mmol/L (136-145)
[2019-08-09 06:27] LABS: Differential Indicated SCAN CRITERIA MET
[2019-08-09] MEDS: Ipratropium/Albuterol Sulfate 3 ML AMPUL.NEB INHALATION (07:10)
[2019-08-09] MEDS: Budesonide Respules 0.5 MG/2 ML AMPUL.NEB. INHALATION (07:10)
[2019-08-09] MEDS: Albuterol 2.5 MG/3 ML VIAL.NEB. INHALATION ×2 (07:10→13:22)
[2019-08-09 07:14] LABS: Anisocytosis 1+; Differential Comment SCANNED
[2019-08-09] MEDS: Metoprolol(XL)Succ 50 MG Tablet PO (09:22)
[2019-08-09] MEDS: Pantoprazole Sodium 40 MG Tablet PO (09:22)
[2019-08-09] MEDS: Tamsulosin HCl 0.4 MG Capsule 0.8 MG PO (09:22)
[2019-08-09] MEDS: ALPRAZolam 0.5 MG Tablet PO (09:34)
--- NOTE | 2019-08-09 10:11 | CASEMGMT ---
Per Yunior LICENSING AND REGISTRATION DIRECTOR, pt to be discharged today if bipap can be obtained. Call to Jenni in the sleep lab and she states that [employer] is out of network for pt's insurance at this time and pt's in and out of network benefits are not the same. This RN CM to room and per , pt's oxygen is through [employer] and they would like the bipap set up through [employer] and Jenni in Sleep lab aware at this time. Jenni states she will forward info/order to [employer] at this time. Jenni is aware that pt has 2liter continuous oxygen order thru [employer] as well and she states that pt was on room air for sleep study and maintained sats at that time. She states that pulmonology can update order, if needed. SStaten RAYMOND CM
--- NOTE | 2019-08-09 10:49 | CON.PCM_ITS ---
Consultation - Renal 08/09/19 PCP/ Referring MD: Requesting physician: Dr. De La Cruz Primary care physician: SEUN Poe Reason for Consultation:: ESRD - History of Present Illness History of Present Illness: The patient is a 68 year old M with past history of ESRD is admitted with dyspnea. The patient is maintained on home HD. He dialyzes every other day. His is the primary press writer for dialysis. The patient is followed by Dr. Alaniz for dialysis management. He is admitted with acute hypoxic respiratory failure due to acute exacerbation of COPD. He feels better today. He denies CP, nausea or edema. His SOB is better today. The patient did received dialysis yesterday prior to admission. - Allergies Allergies: Allergies irbesartan [From Avapro] Allergy (Severe, Verified 08/08/19 13:00) Blisters zolpidem [From Ambien] Adverse Reaction (Severe, Verified 08/08/19 13:00) made me go crazy, memory loss amoxicillin Adverse Reaction (Intermediate, Verified 08/08/19 13:00) PASSES BLOOD IN STOOL TOLERATES ZOSYN PASSES BLOOD IN STOOL metronidazole [From Flagyl] Adverse Reaction (Verified 08/08/19 13:00) pt states he got palpitations and nose bleed. pt states he got palpitations and nose bleed. - Current Medications Current Medications: Current Medications Acetaminophen (Tylenol) 650 mg PO Q6H PRN PRN PRN Reason: Pain Score 1-10/10 Albuterol Sulfate (Ventolin Aerosols) 2.5 mg INHALATION Q6HWA.RT [facility] Last Admin: 08/09/19 07:10 Dose: 2.5 mg Documented by: Albuterol/Ipratropium (Duoneb) 3 ml INHALATION Q4H PRN PRN PRN Reason: SOB &/OR WHEEZING Alprazolam (Xanax) 0.5 mg PO BID [facility] Last Admin: 08/09/19 09:34 Dose: 0.5 mg Documented by: Aspirin (Aspirin, Baby) 81 mg PO QHS [facility] Last Admin: 08/08/19 22:00 Dose: 81 mg Documented by: Atorvastatin Calcium (Lipitor) 80 mg PO QHS [facility] Last Admin: 08/08/19 22:00 Dose: 80 mg Documented by: Budesonide (Pulmicort Aerosol) 0.5 mg INHALATION BID.RT [facility] Last Admin: 08/09/19 07:10 Dose: 0.5 mg Documented by: Dextrose (D50w Syringe) 0 gm IV X1 PRN; Protocol PRN Reason: Hypoglycemia Enoxaparin Sodium (Lovenox) 30 mg SC DAILY@1000 [facility] Last Admin: 08/09/19 09:34 Dose: Not Given Documented by: Glucagon () 1 mg IM .X1 PRN PRN Reason: Hypoglycemia Methylprednisolone (Solu-Medrol) 40 mg IV Q8 [facility] Last Admin: 08/09/19 05:03 Dose: 40 mg Documented by: Metoprolol Succinate (Toprol Xl (Beta Kadi)) 50 mg PO BID [facility] Last Admin: 08/09/19 09:22 Dose: 50 mg Documented by: Nitroglycerin (Nitrostat) 0.4 mg SUBLINGUAL Q5M PRN PRN Reason: CARDIAC/CHEST PAIN Pantoprazole Sodium (Protonix) 40 mg PO BID [facility] Last Admin: 08/09/19 09:22 Dose: 40 mg Documented by: Sodium Chloride () 10 - 40 ml IV UD PRN PRN Reason: SALINE FLUSH Last Admin: 08/09/19 05:03 Dose: 20 ml Documented by: Tamsulosin HCl (Flomax) 0.8 mg PO DAILY [facility] Last Admin: 08/09/19 09:22 Dose: 0.8 mg Documented by: - Past Medical History Past Medical History (Chronic Problems): Chronic Problems (Last Reviewed 07/18/19 @ 13:21 by Evelyn Thurman NP-C) Chronic atrial fibrillation (Chronic) Acute on chronic blood loss anemia (Chronic) RAVEN (obstructive sleep apnea) (Chronic) AHI 426. ESRD (end stage renal disease) (Chronic) History of non-ST elevation myocardial infarction (NSTEMI) (Chronic 01/21/11) Stented coronary artery (Chronic) 2003, JASON to circumflex ; 10/13/2009 tsfer from [facility] to [facility], total of 5 bare metal stents to RCA per Dr. Barrientos @ [facility]: 3.5 X 18 Urgent Care Technician, followed distally by 3.0 X12 Urgent Care Technician to distal RCA;3.5 X 15 Urgent Care Technician, followed proximally by 4.0 X 18 Urgent Care Technician to Mid RCA; 4.0 X 18 Urgent Care Technician to Proximal RCA S/P CABG x 3 (Chronic 01/26/11) [facility] per Dr. Osito Hernandez: NICHOLAS to LAD, reverse SVG to OMbranch of CX, reverse SVG to PDA of RCA. PDA endarterectomy. Status post peripheral artery angioplasty with insertion of stent (Chronic ~2010) Right common iliac, [facility] Atherosclerotic heart disease of [place] coronary artery without angina pectoris (Chronic) 2003, JASON to circumflex ; 10/10/2009 tsfer from [facility] to [facility], total of 5 bare metal stents to RCA; CABG X 3 vessels @ [facility] 01/31/2011 (critical left main and restenosis of RCA stents) Diastolic CHF (Chronic) HLD (hyperlipidemia) (Chronic) HTN (hypertension) (Chronic) PAD (peripheral artery disease) (Chronic) COPD (chronic obstructive pulmonary disease) (Chronic) Tobacco dependence (Chronic) Anemia (Chronic) BPH (benign prostatic hyperplasia) (Chronic) - Past Surgical History Surgical History: coronary bypass surgery, tonsillectomy, - - CABG x3, multiple PCI coronary arteries, right common iliac angioplasty and stenting, aVF, tonsillectomy, multiple endoscopies with intervention. - Social History Smoking Status: Current every day smoker - Family History Maternal Family History: Family History (Last Reviewed 07/18/19 @ 13:21 by SEUN Flowers) Father CAD (coronary artery disease) Hypertension Kidney disease CVA (cerebral vascular accident) Other Cancer History Items: Heart Disease Paternal Family History: Family History (Last Reviewed 07/18/19 @ 13:21 by SEUN Flowers) Father CAD (coronary artery disease) Hypertension Kidney disease CVA (cerebral vascular accident) Other Cancer History Items: Heart Disease, Hypertension, Renal Disease Review of Systems Constitutional: Denies: Chills, Fever, Weight Change Eyes: Denies: Blurred vision, Pain, Redness HEENT: Denies: Head Aches, Sinus Congestion, Sinus Drainage Cardiovascular: Denies: Chest Pain, Palpitations Respiratory: Reports: Shortness of Breath, Shortness of breath upon exertion. Denies: Cough, Sputum production Gastrointestinal: Denies: Abdominal Pain, Nausea, Vomiting Genitourinary: Denies: Dysuria Musculoskeletal: Denies: Joint Pain, Joint Tenderness Skin: Reports: Rash - chronic over LE bilaterally. Denies: Wounds Neurological: Denies: Numbness, Tingling, Focal weakness Psychiatric: Denies: Anxiety, Depression, Homicidal Ideations, Suicidal Ideations Hematologic/ Lymphatic: Denies: Easy Bruising, Easy Bleeding - Physical Exam Vitals/I&O's: Vital Signs Temp Pulse Resp BP Pulse Ox 98.7 F 90 18 139/59 H 98 08/09/19 09:20 08/09/19 09:22 08/09/19 09:20 08/09/19 09:20 08/09/19 09:20 Oxygen Flow Rate (L/min) 4 Oxygen Delivery Method Bi-pap Weight: 66.9 kg Body Mass Index (BMI) 23.8 Finger Stick Blood Glucose 200 Intake and Output for Last 24 Hours 08/07/19 08/08/19 08/09/19 23:59 23:59 23:59 Intake Total 240 / 240 240 / 240 Balance 240 / 240 240 / 240 General: Alert, Oriented x3, Cooperative HEENT: Atraumatic, PERRLA, EOMI, Normocephalic Neck: Supple Lungs: Wheezes - diffuse Cardiovascular: Normal S1, Normal S2, No murmurs Abdomen: Bowel Sounds Present, Soft, Non Tender Extremities: Edema - Trace LE Musculoskeletal: No Tenderness to Palpation of Joints or Extremities Microbiology Past 72 Hours 08/08/19 20:15 Mucosa - Nasopharyngeal Respiratory Panel (PCR) - Final Laboratory Results 08/08/19 13:06: WBC 9.0, RBC 2.57 L, Hgb 8.4 L, Hct 26.8 L, MCV 104.3 H, MCH 32.7 H, MCHC 31.3 L, RDW Std Deviation 74.7 H, RDW Coeff of Eleni 19.5 H, Plt Count 180, MPV 9.7, Immature Gran % (Auto) 0.300, Neut % (Auto) 75.8 H, Lymph % (Auto) 11.8 L, [place] % (Auto) 9.5, Eos % (Auto) 2.3, Baso % (Auto) 0.3, Absolute Neuts (auto) 6.8, Absolute Lymphs (auto) 1.06, Nucleated RBC % 0, Platelet Estimate ADEQUATE, Hypochromasia 2+, Macrocytosis 1+ 08/08/19 13:06: Sodium 132 L, Potassium 3.7, Chloride 94 L, Carbon Dioxide 31.0, Anion Gap 7, BUN 37 H, Creatinine 5.07 H, Estim Creat Clear Calc 12.76, Est GFR (MDRD) Af Amer 15 L, Est GFR (MDRD) Non-Af 12 L, BUN/Creatinine Ratio 7.3 L, Glucose 117 H, Calcium 9.3, Troponin I < 0.015 08/08/19 13:06: Magnesium 2.0 08/09/19 05:12: WBC 3.0 L, RBC 2.17 L, Hgb 7.0 L, Hct 22.4 L, MCV 103.2 H, MCH 32.3 H, MCHC 31.3 L, RDW Std Deviation 72.2 H, RDW Coeff of Eleni 19.0 H, Plt Count 149 L, MPV 9.4, Immature Gran % (Auto) 0.700, Neut % (Auto) 82.2 H, Lymph % (Auto) 14.4 L, [place] % (Auto) 2.7, Eos % (Auto) 0.0, Baso % (Auto) 0.0, Absolute Neuts (auto) 2.5, Absolute Lymphs (auto) 0.43 L, Nucleated RBC % 0, Differential Comment SCANNED, Diff Path Review May foll, Anisocytosis 1+ 08/09/19 05:12: Sodium 131 L, Potassium 4.4, Chloride 93 L, Carbon Dioxide 30.0, Anion Gap 8, BUN 55 H, Creatinine 6.46 H, Estim Creat Clear Calc 10.01, Est GFR (MDRD) Af Amer 11 L, Est GFR (MDRD) Non-Af 9 L, BUN/Creatinine Ratio 8.5 L, Glucose 142 H, Calcium 8.4 L Current Medications Acetaminophen (Tylenol) 650 mg PO Q6H PRN PRN PRN Reason: Pain Score 1-10/10 Albuterol Sulfate (Ventolin Aerosols) 2.5 mg INHALATION Q6HWA.RT [facility] Last Admin: 08/09/19 07:10 Dose: 2.5 mg Documented by: Albuterol/Ipratropium (Duoneb) 3 ml INHALATION Q4H PRN PRN PRN Reason: SOB &/OR WHEEZING Alprazolam (Xanax) 0.5 mg PO BID [facility] Last Admin: 08/09/19 09:34 Dose: 0.5 mg Documented by: Aspirin (Aspirin, Baby) 81 mg PO QHS [facility] Last Admin: 08/08/19 22:00 Dose: 81 mg Documented by: Atorvastatin Calcium (Lipitor) 80 mg PO QHS [facility] Last Admin: 08/08/19 22:00 Dose: 80 mg Documented by: Budesonide (Pulmicort Aerosol) 0.5 mg INHALATION BID.RT [facility] Last Admin: 08/09/19 07:10 Dose: 0.5 mg Documented by: Dextrose (D50w Syringe) 0 gm IV X1 PRN; Protocol PRN Reason: Hypoglycemia Enoxaparin Sodium (Lovenox) 30 mg SC DAILY@1000 [facility] Last Admin: 08/09/19 09:34 Dose: Not Given Documented by: Glucagon () 1 mg IM .X1 PRN PRN Reason: Hypoglycemia Methylprednisolone (Solu-Medrol) 40 mg IV Q8 [facility] Last Admin: 08/09/19 05:03 Dose: 40 mg Documented by: Metoprolol Succinate (Toprol Xl (Beta Kadi)) 50 mg PO BID [facility] Last Admin: 08/09/19 09:22 Dose: 50 mg Documented by: Nitroglycerin (Nitrostat) 0.4 mg SUBLINGUAL Q5M PRN PRN Reason: CARDIAC/CHEST PAIN Pantoprazole Sodium (Protonix) 40 mg PO BID [facility] Last Admin: 08/09/19 09:22 Dose: 40 mg Documented by: Sodium Chloride () 10 - 40 ml IV UD PRN PRN Reason: SALINE FLUSH Last Admin: 08/09/19 05:03 Dose: 20 ml Documented by: Tamsulosin HCl (Flomax) 0.8 mg PO DAILY [facility] Last Admin: 08/09/19 09:22 Dose: 0.8 mg Documented by: Assessment/Plan All Active Problems (Last Reviewed 07/18/19 @ 13:21 by Evelyn Thurman, ARMEN-C) Acute blood loss anemia (Acute) GI bleed (Acute) Upper GI bleed (Acute) COPD exacerbation (Acute) Acute respiratory failure with hypoxia (Acute) 1. ESRD. HD every other day at home. He dialyzed yesterday prior to admission. No volume overload (he is below TW). No hyperkalemia. No need for dialysis today. Can resume home HD tomorrow if discharged. He has an appointment with DR. Alaniz on 08/13/19. 2. Anemia. Prior extensive GI workup. Follow Hgb as outpatient. Continue RITCHIE. 3. Dyspnea. Due to AECOPD. Symptomatically better. On bronchodilator and steroid. Management as per hospitalist. Patient tells me that he may be going home today.
--- NOTE | 2019-08-09 10:57 | CASEMGMT ---
POA form scanned into summary tab of echart, with living will provision initialed. Pt has Heidy Hoffman listed as healthcare POA. FABIAN Momin
--- NOTE | 2019-08-09 11:40 | NURSING ---
Colostomy appliance changed per pt request. no leak noted at this time, but pt states appliance was due to be changed. there was a moderate amount of thick brown stool noted in the appliance. peristomal skin is intact. stoma is well budded and beefy red. stoma measures approx 1. cleansed peristomal skin with warm water. pat dry. applied a new 2 piece flat Padmini appliance. pt tolerated well. present at bedside.
--- NOTE | 2019-08-09 12:09 | PN_ITS ---
<Haven Carlson - Last Filed: 08/09/19 12:20> Subjective: Patient seen and examined. Reports breathing is stable. Reports intermittent tightness in breathing. Denies cough, fever, chills. Patient is awaiting BiPAP set up at home. - Physical Exam Vitals/I&O's: Vital Signs Temp Pulse Resp BP Pulse Ox 98.7 F 90 18 139/59 H 98 08/09/19 09:20 08/09/19 09:22 08/09/19 09:20 08/09/19 09:20 08/09/19 09:20 Oxygen Flow Rate (L/min) 4 Oxygen Delivery Method Bi-pap Weight: 147 lb 7.828 oz Body Mass Index (BMI) 23.8 Finger Stick Blood Glucose 200 Intake and Output for Last 24 Hours 08/07/19 08/08/19 08/09/19 23:59 23:59 23:59 Intake Total 240 / 240 240 / 240 Balance 240 / 240 240 / 240 General: Alert, Oriented x3, Cooperative HEENT: Atraumatic, PERRLA, EOMI, Normocephalic Oral: Dry Mucosa Neck: Supple, No JVD, Negative Carotid Bruits Lungs: Diminished, Wheezes Cardiovascular: Regular rate, Regular Rhythm, Normal S1, Normal S2, No murmurs Abdomen: Bowel Sounds Present, Soft, Non Tender, Non-Distended, - - Colostomy bag intact Extremities: No clubbing, No cyanosis, No edema, Capillary Refill Less than 3 Seconds Skin: No rashes, No breakdown Musculoskeletal: No Tenderness to Palpation of Joints or Extremities Neurological: Cranial nerves II-XII grossly intact, Neuro grossly intact Psych/Mental Status: Normal Affect, Appropriate Microbiology Past 72 Hours 08/08/19 20:15 Mucosa - Nasopharyngeal Respiratory Panel (PCR) - Final Laboratory Results 08/08/19 13:06: WBC 9.0, RBC 2.57 L, Hgb 8.4 L, Hct 26.8 L, MCV 104.3 H, MCH 32.7 H, MCHC 31.3 L, RDW Std Deviation 74.7 H, RDW Coeff of Eleni 19.5 H, Plt Count 180, MPV 9.7, Immature Gran % (Auto) 0.300, Neut % (Auto) 75.8 H, Lymph % (Auto) 11.8 L, Mellette % (Auto) 9.5, Eos % (Auto) 2.3, Baso % (Auto) 0.3, Absolute Neuts (auto) 6.8, Absolute Lymphs (auto) 1.06, Nucleated RBC % 0, Platelet Estimate ADEQUATE, Hypochromasia 2+, Macrocytosis 1+ 08/08/19 13:06: Sodium 132 L, Potassium 3.7, Chloride 94 L, Carbon Dioxide 31.0, Anion Gap 7, BUN 37 H, Creatinine 5.07 H, Estim Creat Clear Calc 12.76, Est GFR (MDRD) Af Amer 15 L, Est GFR (MDRD) Non-Af 12 L, BUN/Creatinine Ratio 7.3 L, Glucose 117 H, Calcium 9.3, Troponin I < 0.015 08/08/19 13:06: Magnesium 2.0 08/09/19 05:12: WBC 3.0 L, RBC 2.17 L, Hgb 7.0 L, Hct 22.4 L, MCV 103.2 H, MCH 32.3 H, MCHC 31.3 L, RDW Std Deviation 72.2 H, RDW Coeff of Eleni 19.0 H, Plt Count 149 L, MPV 9.4, Immature Gran % (Auto) 0.700, Neut % (Auto) 82.2 H, Lymph % (Auto) 14.4 L, Mellette % (Auto) 2.7, Eos % (Auto) 0.0, Baso % (Auto) 0.0, Absolute Neuts (auto) 2.5, Absolute Lymphs (auto) 0.43 L, Nucleated RBC % 0, Differential Comment SCANNED, Diff Path Review May foll, Anisocytosis 1+ 08/09/19 05:12: Sodium 131 L, Potassium 4.4, Chloride 93 L, Carbon Dioxide 30.0, Anion Gap 8, BUN 55 H, Creatinine 6.46 H, Estim Creat Clear Calc 10.01, Est GFR (MDRD) Af Amer 11 L, Est GFR (MDRD) Non-Af 9 L, BUN/Creatinine Ratio 8.5 L, Glucose 142 H, Calcium 8.4 L Current Medications Acetaminophen (Tylenol) 650 mg PO Q6H PRN PRN PRN Reason: Pain Score 1-10/10 Albuterol Sulfate (Ventolin Aerosols) 2.5 mg INHALATION Q6HWA.RT JAIME Last Admin: 08/09/19 07:10 Dose: 2.5 mg Documented by: Albuterol/Ipratropium (Duoneb) 3 ml INHALATION Q4H PRN PRN PRN Reason: SOB &/OR WHEEZING Last Admin: 08/09/19 07:10 Dose: 3 ml Documented by: Alprazolam (Xanax) 0.5 mg PO BID [facility] Last Admin: 08/09/19 09:34 Dose: 0.5 mg Documented by: Aspirin (Aspirin, Baby) 81 mg PO QHS [facility] Last Admin: 08/08/19 22:00 Dose: 81 mg Documented by: Atorvastatin Calcium (Lipitor) 80 mg PO QHS [facility] Last Admin: 08/08/19 22:00 Dose: 80 mg Documented by: Budesonide (Pulmicort Aerosol) 0.5 mg INHALATION BID.RT [facility] Last Admin: 08/09/19 07:10 Dose: 0.5 mg Documented by: Dextrose (D50w Syringe) 0 gm IV X1 PRN; Protocol PRN Reason: Hypoglycemia Enoxaparin Sodium (Lovenox) 30 mg SC DAILY@1000 [facility] Last Admin: 08/09/19 09:34 Dose: Not Given Documented by: Glucagon () 1 mg IM .X1 PRN PRN Reason: Hypoglycemia Methylprednisolone (Solu-Medrol) 40 mg IV Q8 [facility] Last Admin: 08/09/19 05:03 Dose: 40 mg Documented by: Metoprolol Succinate (Toprol Xl (Beta Kadi)) 50 mg PO BID [facility] Last Admin: 08/09/19 09:22 Dose: 50 mg Documented by: Nitroglycerin (Nitrostat) 0.4 mg SUBLINGUAL Q5M PRN PRN Reason: CARDIAC/CHEST PAIN Pantoprazole Sodium (Protonix) 40 mg PO BID [facility] Last Admin: 08/09/19 09:22 Dose: 40 mg Documented by: Sodium Chloride () 10 - 40 ml IV UD PRN PRN Reason: SALINE FLUSH Last Admin: 08/09/19 05:03 Dose: 20 ml Documented by: Tamsulosin HCl (Flomax) 0.8 mg PO DAILY [facility] Last Admin: 08/09/19 09:22 Dose: 0.8 mg Documented by: Medical Necessity - Tobacco Use Smoking Status: Current every day smoker Tobacco Use: Cigarettes Assessment/Plan All Active Problems (Last Reviewed 07/18/19 @ 13:21 by Evelyn Thurman NP-Izabel) Acute blood loss anemia (Acute) GI bleed (Acute) Upper GI bleed (Acute) COPD exacerbation (Acute) Acute respiratory failure with hypoxia (Acute) 1. Acute COPD exacerbation with chronic hypoxic respiratory failure-continue supplement oxygen to maintain O2 at or above 90%. IV Solu-Medrol. Albuterol and DuoNeb aerosols. Case management working on home BiPAP set up. If BiPAP able to be set up today, anticipate discharge home. 2. RAVEN-Case management working on BiPAP set up. Continue outpatient follow-up with pulmonary medicine. 3. End-stage renal disease on hemodialysis-nephrology following. Continue scheduled dialysis regimen. 4. Chronic iron deficiency anemia/anemia of chronic disease-trend CBC. 5. CAD status post CABG X3-continue statin, metoprolol, aspirin. Patient had cardiac catheterization May 2018 which showed triple-vessel CAD of the LM, LCx, PDA. Continue medical therapy. 6. BPH-continue Flomax regimen. 7. Hypertension-stable, continue metoprolol regimen. 8. History of colonic ischemia-November 2017 patient had a ischemic right colon and proximal transverse colon and underwent ileostomy. 9. Chronic diastolic CHF-no acute exacerbation. 10. Anxiety-uncontrolled. Continue home Xanax regimen however recommend discussion with primary care physician on long-term agent for further anxiety control. 11. PAD-continue statin, aspirin. 12. Hyperlipidemia-continue statin regimen. DVT prophylaxis-Lovenox subcu This patient was seen by SEUN Obregon under the supervision of Dr. Christensen. <Manoj Christensen - Last Filed: 08/09/19 13:49> - Physical Exam Vitals/I&O's: Vital Signs Temp Pulse Resp BP Pulse Ox 98.7 F 89 21 H 139/59 H 95 08/09/19 09:20 08/09/19 13:26 08/09/19 13:26 08/09/19 09:20 08/09/19 13:25 Oxygen Flow Rate (L/min) 4 Oxygen Delivery Method Bi-pap Weight: 66.9 kg Body Mass Index (BMI) 23.8 Finger Stick Blood Glucose 200 Intake and Output for Last 24 Hours 08/07/19 08/08/19 08/09/19 23:59 23:59 23:59 Intake Total 240 / 240 740 / 740 Balance 240 / 240 740 / 740 Microbiology Past 72 Hours 08/08/19 20:15 Mucosa - Nasopharyngeal Respiratory Panel (PCR) - Final Laboratory Results 08/08/19 13:06: WBC 9.0, RBC 2.57 L, Hgb 8.4 L, Hct 26.8 L, MCV 104.3 H, MCH 32.7 H, MCHC 31.3 L, RDW Std Deviation 74.7 H, RDW Coeff of Eleni 19.5 H, Plt Count 180, MPV 9.7, Immature Gran % (Auto) 0.300, Neut % (Auto) 75.8 H, Lymph % (Auto) 11.8 L, Mellette % (Auto) 9.5, Eos % (Auto) 2.3, Baso % (Auto) 0.3, Absolute Neuts (auto) 6.8, Absolute Lymphs (auto) 1.06, Nucleated RBC % 0, Platelet Estimate ADEQUATE, Hypochromasia 2+, Macrocytosis 1+ 08/08/19 13:06: Sodium 132 L, Potassium 3.7, Chloride 94 L, Carbon Dioxide 31.0, Anion Gap 7, BUN 37 H, Creatinine 5.07 H, Estim Creat Clear Calc 12.76, Est GFR (MDRD) Af Amer 15 L, Est GFR (MDRD) Non-Af 12 L, BUN/Creatinine Ratio 7.3 L, Glucose 117 H, Calcium 9.3, Troponin I < 0.015 08/08/19 13:06: Magnesium 2.0 08/09/19 05:12: WBC 3.0 L, RBC 2.17 L, Hgb 7.0 L, Hct 22.4 L, MCV 103.2 H, MCH 32.3 H, MCHC 31.3 L, RDW Std Deviation 72.2 H, RDW Coeff of Eleni 19.0 H, Plt Count 149 L, MPV 9.4, Immature Gran % (Auto) 0.700, Neut % (Auto) 82.2 H, Lymph % (Auto) 14.4 L, Mellette % (Auto) 2.7, Eos % (Auto) 0.0, Baso % (Auto) 0.0, Absolute Neuts (auto) 2.5, Absolute Lymphs (auto) 0.43 L, Nucleated RBC % 0, Differential Comment SCANNED, Diff Path Review Reviewed, Anisocytosis 1+ 08/09/19 05:12: Sodium 131 L, Potassium 4.4, Chloride 93 L, Carbon Dioxide 30.0, Anion Gap 8, BUN 55 H, Creatinine 6.46 H, Estim Creat Clear Calc 10.01, Est GFR (MDRD) Af Amer 11 L, Est GFR (MDRD) Non-Af 9 L, BUN/Creatinine Ratio 8.5 L, Glucose 142 H, Calcium 8.4 L Current Medications Acetaminophen (Tylenol) 650 mg PO Q6H PRN PRN PRN Reason: Pain Score 1-10/10 Albuterol Sulfate (Ventolin Aerosols) 2.5 mg INHALATION Q6HWA.RT [facility] Last Admin: 08/09/19 13:22 Dose: 2.5 mg Documented by: Albuterol/Ipratropium (Duoneb) 3 ml INHALATION Q4H PRN PRN PRN Reason: SOB &/OR WHEEZING Last Admin: 08/09/19 07:10 Dose: 3 ml Documented by: Alprazolam (Xanax) 0.5 mg PO BID [facility] Last Admin: 08/09/19 09:34 Dose: 0.5 mg Documented by: Aspirin (Aspirin, Baby) 81 mg PO QHS [facility] Last Admin: 08/08/19 22:00 Dose: 81 mg Documented by: Atorvastatin Calcium (Lipitor) 80 mg PO QHS [facility] Last Admin: 08/08/19 22:00 Dose: 80 mg Documented by: Budesonide (Pulmicort Aerosol) 0.5 mg INHALATION BID.RT [facility] Last Admin: 08/09/19 07:10 Dose: 0.5 mg Documented by: Dextrose (D50w Syringe) 0 gm IV X1 PRN; Protocol PRN Reason: Hypoglycemia Enoxaparin Sodium (Lovenox) 30 mg SC DAILY@1000 [facility] Last Admin: 08/09/19 09:34 Dose: Not Given Documented by: Glucagon () 1 mg IM .X1 PRN PRN Reason: Hypoglycemia Methylprednisolone (Solu-Medrol) 40 mg IV Q8 [facility] Last Admin: 08/09/19 05:03 Dose: 40 mg Documented by: Metoprolol Succinate (Toprol Xl (Beta Kadi)) 50 mg PO BID [facility] Last Admin: 08/09/19 09:22 Dose: 50 mg Documented by: Nitroglycerin (Nitrostat) 0.4 mg SUBLINGUAL Q5M PRN PRN Reason: CARDIAC/CHEST PAIN Pantoprazole Sodium (Protonix) 40 mg PO BID [facility] Last Admin: 08/09/19 09:22 Dose: 40 mg Documented by: Sodium Chloride () 10 - 40 ml IV UD PRN PRN Reason: SALINE FLUSH Last Admin: 08/09/19 05:03 Dose: 20 ml Documented by: Tamsulosin HCl (Flomax) 0.8 mg PO DAILY [facility] Last Admin: 08/09/19 09:22 Dose: 0.8 mg Documented by: Assessment/Plan This patient was seen in conjunction with SEUN Obregon . I have independently interviewed and examined the patient and reviewed pertinent historical, laboratory, and other data. Please refer to SEUN Obregon note for details of this patient's presentation, findings, and recommendations. I have reviewed SEUN Obregon note and concur with documented findi ngs. In brief, patient is a 68-year-old gentleman with multiple comorbidities presented with shortness of breath and assessment of COPD with acute exacerbation made admitted to a monitored bed for further management Physical Examination: GENERAL: cooperative HEENT: Atraumatic; EYES; Anicteric, Normal Conjunctiva NECK; supple, normal thyroid, RESPIRATORY: Diminished to auscultation CARDIOVASCULAR: Regular S1 S2, GI: soft, normoactive bowel sounds, : No Renal angle tenderness; EXTREMITIES: No edema, no clubbing, MUSCULOSKELETAL: no muscle waisting NEURO: Awake; no lateralizing signs. SKIN: No Rash PSYCH; Flat affect Assessment: 1. COPD with acute exacerbation 2. End-stage renal disease on hemodialysis 3. Chronic iron deficiency anemia secondary to chronic blood loss from AVMs 4. Coronary artery disease with previous CABG 5. Obstructive sleep apnea 6. Essential hypertension 7. BPH 8. Chronic diastolic congestive heart failure 9. Peripheral arterial disease 10. Dyslipidemia 11. DVT prophylaxis Recommendations: 1. I have discussed the results of my overview and impressions with the patient 2. Options for management were reviewed Code Visit Inpatient E&M: 42598 Subs Hosp L2
[2019-08-09 13:15] LABS: Pathologist Review Reviewed
--- NOTE | 2019-08-09 13:30 | CASEMGMT ---
RN CM assessment: Face to Face with patient for initial transition planning/care coordination assessment. RN CM introduced self and role at [facility] [place], pt voices understanding and consents to assessment at this time. Pt is sitting up on side of bed in no distress at this time. Pt is A/Ox4 at this time and answers all questions appropriately at this time. Pt's is at bedside during assessment. Care providers, pharmacy, and demographics verified at this time. PCP: Terra Berger Specialists: Corbin nephlorena; James, cardio in [place]; joanna Caicedo [facility] [place]it[facility] Living Will/HPOA: Pt states has HPOA and it is on file at [facility] [place] at this time. Pt is aware that he does not have a LW on file and this RN CM explained LW at this time, pt voices understanding. Pt does not want to complete LW at this time. LNOK: Heidy Gimenez, ; Lester Gimenez, son Living Arrangements: Pt states lives with in 1 story home with 2 steps in and states no concerns at home at this time. Pt states is independent with ADL's. Transportation: Pt states he/ drives and states no transportation concerns at this time. DME/HHC: Pt states cane, walker, scooter, nebulizer, cpap(brothers), and home oxygen 2 liters 24/7 thru [employer]. Pt states uses the oxygen only prn and at bedtime normally. Pt is waiting for bipap to be ready thru [employer] and [facility] to notify this RN CM when it is ready and then pt will be discharged at that time. Pt states does home HD every other day with 's assistance. Pt states no hx of HHC or SNF in the past and declines HHC/CCN. This RN CM did discuss palliative care with pt/ at this time and per , Terra Berger did refer pt in the past and states that the co-pay was too high but she states that that was several years ago. Pt/ are willing to have palliative pamphlet at this time. Pt/ state that they have been 'moving' to new home 'for awhile' and would like to wait to do palliative until then. [facility] palliative pamphlet provided to pt/ at this time, voice understanding and gratitude. Pt states no concerns with going home at time of discharge. Pt is retired. Pt states smokes about 4-5cigarettes/day and drinks 2 beers daily normally. Pt states no further concerns/needs at this time. CM to follow for any further discharge planning/needs. Advised pt/ to ask for CM if any further questions/concerns/needs arise, voices understanding. Pt Goal: Home Plan: Home w/ new bipap. SStdereje ANDRADE CM
--- NOTE | 2019-08-09 13:42 | CASEMGMT ---
This RN CM to room to complete CM assessment at this time and pt is sleeping with bipap in place at this time. is not at bedside at this time. SStaten RN CM
--- NOTE | 2019-08-09 15:15 | DCINST_ITS ---
You will use the following diet at home:: Cardiac Discharge Activity: Return to Normal Activity Call your doctor if you observe: Shortness of breath, Dizziness, Fainting spells, Chest pain Allergies/Adverse Reactions: Allergies irbesartan [From Avapro] Allergy (Severe, Verified 08/08/19 13:00) Blisters zolpidem [From Ambien] Adverse Reaction (Severe, Verified 08/08/19 13:00) made me go crazy, memory loss amoxicillin Adverse Reaction (Intermediate, Verified 08/08/19 13:00) PASSES BLOOD IN STOOL TOLERATES ZOSYN PASSES BLOOD IN STOOL metronidazole [From Flagyl] Adverse Reaction (Verified 08/08/19 13:00) pt states he got palpitations and nose bleed. pt states he got palpitations and nose bleed. Medications to take at Discharge ALPRAZolam [Xanax] 0.5 mg PO BID 07/23/19 Albuterol Aerosols [Ventolin Aerosols] 1 inh INHALATION Q4H PRN PRN 07/23/19 Aspirin [Aspirin, Baby] 81 mg PO QHS 07/23/19 Budesonide Aerosol [Pulmicort Respules] 1 inh INHALATION BID 07/23/19 Formoterol Fumarate [Perforomist] 20 mcg INHALATION BID 07/23/19 Ipratropium/Albuterol Sulfate [Iprat-Albut 0.5-3(2.5) mg/3 ml] 1 inh INHALATION Q4H PRN PRN 07/23/19 Omeprazole 40 mg PO BID 07/23/19 Rosuvastatin Calcium [Crestor] 40 mg PO QHS 07/23/19 Tamsulosin HCl [Flomax] 0.8 mg PO DAILY 07/23/19 Metoprolol Succinate [Toprol Xl] 50 - 100 mg PO BID 08/08/19 Prednisone See Taper PO DAILY #30 tab 08/09/19 The following prescriptions were given: Prednisone See Taper PO DAILY #30 tab Transmission Status: Pending to [id number] Primary Care Physician: Tania Berger NP-C [Primary Care Provider] - Please follow up with your Primary Care Physician in: 1 Week Test Results: Test results from this visit will be discussed in further detail at your follow- up appointment, if applicable. Please Follow Up With: Nephrology When: Continue dialysis as scheduled Please Follow Up With: Evelyn Thurman NP-C When: 1 to 2 weeks Proposed Discharge Date: 08/09/19
--- NOTE | 2019-08-09 15:16 | CASEMGMT ---
Addendum entered by Obdulia Cavanaugh 08/09/19 15:18: Yunior [employer] updated on all, voices understanding. Chris ANDRADE CM Original Note: This RN CM received call from Jenni in Sleep lab and she states that per Edwar at [facility], bipap is ready and they will deliver to pt as soon as he arrives home. This RN CM to room to discuss with pt and pt states that he already received a call from Edwar at [facility] and that they just need notifed when pt leaving. Pt is anxious to leave at this time. Pt/ state no further needs/concerns at this time. Chris ANDRADE CM
--- NOTE | 2019-08-09 15:19 | DS.PCM_ITS ---
<Haven Carlson - Last Filed: 08/09/19 15:24> Discharge Date and Diagnosis Date of Admission: 08/08/19 Date of Discharge: 08/09/19 - Primary Discharge Diagnosis 1. Acute COPD exacerbation with chronic hypoxic respiratory failure 2. RAVEN 3. End-stage renal disease on hemodialysis 4. Chronic iron deficiency anemia/anemia of chronic disease 5. CAD status post CABG X3 6. BPH 7. Hypertension 8. History of colonic ischemia 9. Chronic diastolic CHF 10. Anxiety 11. PAD 12. Hyperlipidemia - Secondary Discharge Diagnosis Chronic Problems (Last Reviewed 07/18/19 @ 13:21 by Evelyn Thurman NP-C) Chronic atrial fibrillation (Chronic) Acute on chronic blood loss anemia (Chronic) RAVEN (obstructive sleep apnea) (Chronic) AHI 426. ESRD (end stage renal disease) (Chronic) History of non-ST elevation myocardial infarction (NSTEMI) (Chronic 01/21/11) Stented coronary artery (Chronic) 2003, JASON to circumflex ; 10/13/2009 tsfer from [facility] to [facility], total of 5 bare metal stents to RCA per Dr. Barrientos @ [facility]: 3.5 X 18 Mechanical Manufacturing Technician, followed distally by 3.0 X12 Mechanical Manufacturing Technician to distal RCA;3.5 X 15 Mechanical Manufacturing Technician, followed proximally by 4.0 X 18 Mechanical Manufacturing Technician to Mid RCA; 4.0 X 18 Mechanical Manufacturing Technician to Proximal RCA S/P CABG x 3 (Chronic 01/26/11) [facility] per Dr. Osito Hernandez: NICHOLAS to LAD, reverse SVG to OMbranch of CX, reverse SVG to PDA of RCA. PDA endarterectomy. Status post peripheral artery angioplasty with insertion of stent (Chronic ~2010) Right common iliac, [facility] Atherosclerotic heart disease of [place] coronary artery without angina pectoris (Chronic) 2003, JASON to circumflex ; 10/10/2009 tsfer from [facility] to [facility], total of 5 bare metal stents to RCA; CABG X 3 vessels @ [facility] 01/31/2011 (critical left main and restenosis of RCA stents) Diastolic CHF (Chronic) HLD (hyperlipidemia) (Chronic) HTN (hypertension) (Chronic) PAD (peripheral artery disease) (Chronic) COPD (chronic obstructive pulmonary disease) (Chronic) Tobacco dependence (Chronic) Anemia (Chronic) BPH (benign prostatic hyperplasia) (Chronic) Hospital Course and Treatment Imaging Results: Diagnostic Data Chest X-Ray 08/08/19 13:28 IMPRESSION: CHF. Small bilateral effusions with underlying atelectasis and/or infiltration. Electronically Signed: Deven Hensley, at 13:50 EDT , Service support , Dr. Fuller- nephrology Operations: None Procedures: None Summary of Care Provided: The patient is a 68 year old M admitted 08/08/2019 due to shortness of breath. 1. Acute COPD exacerbation with chronic hypoxic respiratory failure-continue supplement oxygen to maintain O2 at or above 90%. Prednisone taper at discharge. Oxygen stable on home O2 requirements. BiPAP set up and will be delivered to patient's home at discharge. Case management discussed palliative care which patient will consider. Follow-up with primary care provider in 1 week. Follow-up with pulmonary medicine as scheduled. 2. RAVEN-BiPAP set up prior to discharge. Continue outpatient follow-up with pulmonary medicine. 3. End-stage renal disease on hemodialysis-nephrology consulted during admission. Continue scheduled dialysis regimen. 4. Chronic iron deficiency anemia/anemia of chronic disease-stable. 5. CAD status post CABG X3-continue statin, metoprolol, aspirin. Patient had cardiac catheterization May 2018 which showed triple-vessel CAD of the LM, LCx, PDA. Continue medical therapy. 6. BPH-continue Flomax regimen. 7. Hypertension-stable, continue metoprolol regimen. 8. History of colonic ischemia-November 2017 patient had a ischemic right colon and proximal transverse colon and underwent ileostomy. 9. Chronic diastolic CHF-no acute exacerbation. 10. Anxiety-uncontrolled. Continue home Xanax regimen however recommend discussion with primary care physician on long-term agent for further anxiety control. 11. PAD-continue statin, aspirin. 12. Hyperlipidemia-continue statin regimen. General: Alert, Oriented x3, Cooperative HEENT: Atraumatic, PERRLA, EOMI, Normocephalic Oral: Dry Mucosa Neck: Supple, No JVD, Negative Carotid Bruits Lungs: Diminished, Wheezes Cardiovascular: Regular rate, Regular Rhythm, Normal S1, Normal S2, No murmurs Abdomen: Bowel Sounds Present, Soft, Non Tender, Non-Distended, - - Colostomy bag intact Extremities: No clubbing, No cyanosis, No edema, Capillary Refill Less than 3 Seconds Skin: No rashes, No breakdown Musculoskeletal: No Tenderness to Palpation of Joints or Extremities Neurological: Cranial nerves II-XII grossly intact, Neuro grossly intact Psych/Mental Status: Normal Affect, Appropriate Patient seen and examined prior to discharge. Physical assessment as noted above. Patient is stable for discharge with follow up recommendations as noted above. This patient was seen by SEUN Obregon under the supervision of Dr. Christensen. - Physical Exam Vitals/I&O's: Vital Signs Temp Pulse Resp BP Pulse Ox 98.7 F 89 21 H 139/59 H 95 08/09/19 09:20 08/09/19 13:26 08/09/19 13:26 08/09/19 09:20 08/09/19 13:25 Oxygen Flow Rate (L/min) 4 Oxygen Delivery Method Bi-pap Weight: 147 lb 7.828 oz Body Mass Index (BMI) 23.8 Finger Stick Blood Glucose 200 Intake and Output for Last 24 Hours 08/07/19 08/08/19 08/09/19 23:59 23:59 23:59 Intake Total 240 / 240 740 / 740 Balance 240 / 240 740 / 740 Microbiology Past 72 Hours 08/08/19 20:15 Mucosa - Nasopharyngeal Respiratory Panel (PCR) - Final Laboratory Results 08/08/19 13:06: Magnesium 2.0 08/09/19 05:12: WBC 3.0 L, RBC 2.17 L, Hgb 7.0 L, Hct 22.4 L, MCV 103.2 H, MCH 32.3 H, MCHC 31.3 L, RDW Std Deviation 72.2 H, RDW Coeff of Eleni 19.0 H, Plt Count 149 L, MPV 9.4, Immature Gran % (Auto) 0.700, Neut % (Auto) 82.2 H, Lymph % (Auto) 14.4 L, Iron % (Auto) 2.7, Eos % (Auto) 0.0, Baso % (Auto) 0.0, Absolute Neuts (auto) 2.5, Absolute Lymphs (auto) 0.43 L, Nucleated RBC % 0, Differential Comment SCANNED, Diff Path Review Reviewed, Anisocytosis 1+ 08/09/19 05:12: Sodium 131 L, Potassium 4.4, Chloride 93 L, Carbon Dioxide 30.0, Anion Gap 8, BUN 55 H, Creatinine 6.46 H, Estim Creat Clear Calc 10.01, Est GFR (MDRD) Af Amer 11 L, Est GFR (MDRD) Non-Af 9 L, BUN/Creatinine Ratio 8.5 L, Glucose 142 H, Calcium 8.4 L Current Medications Acetaminophen (Tylenol) 650 mg PO Q6H PRN PRN PRN Reason: Pain Score 1-10/10 Albuterol Sulfate (Ventolin Aerosols) 2.5 mg INHALATION Q6HWA.RT [facility] Last Admin: 08/09/19 13:22 Dose: 2.5 mg Documented by: Albuterol/Ipratropium (Duoneb) 3 ml INHALATION Q4H PRN PRN PRN Reason: SOB &/OR WHEEZING Last Admin: 08/09/19 07:10 Dose: 3 ml Documented by: Alprazolam (Xanax) 0.5 mg PO BID [facility] Last Admin: 08/09/19 09:34 Dose: 0.5 mg Documented by: Aspirin (Aspirin, Baby) 81 mg PO QHS [facility] Last Admin: 08/08/19 22:00 Dose: 81 mg Documented by: Atorvastatin Calcium (Lipitor) 80 mg PO QHS [facility] Last Admin: 08/08/19 22:00 Dose: 80 mg Documented by: Budesonide (Pulmicort Aerosol) 0.5 mg INHALATION BID.RT [facility] Last Admin: 08/09/19 07:10 Dose: 0.5 mg Documented by: Dextrose (D50w Syringe) 0 gm IV X1 PRN; Protocol PRN Reason: Hypoglycemia Enoxaparin Sodium (Lovenox) 30 mg SC DAILY@1000 [facility] Last Admin: 08/09/19 09:34 Dose: Not Given Documented by: Glucagon () 1 mg IM .X1 PRN PRN Reason: Hypoglycemia Methylprednisolone (Solu-Medrol) 40 mg IV Q8 [facility] Last Admin: 08/09/19 13:56 Dose: 40 mg Documented by: Metoprolol Succinate (Toprol Xl (Beta Kadi)) 50 mg PO BID [facility] Last Admin: 08/09/19 09:22 Dose: 50 mg Documented by: Nitroglycerin (Nitrostat) 0.4 mg SUBLINGUAL Q5M PRN PRN Reason: CARDIAC/CHEST PAIN Pantoprazole Sodium (Protonix) 40 mg PO BID [facility] Last Admin: 08/09/19 09:22 Dose: 40 mg Documented by: Sodium Chloride () 10 - 40 ml IV UD PRN PRN Reason: SALINE FLUSH Last Admin: 08/09/19 13:56 Dose: 10 ml Documented by: Tamsulosin HCl (Flomax) 0.8 mg PO DAILY [facility] Last Admin: 08/09/19 09:22 Dose: 0.8 mg Documented by: Discharge Diet: Low fat/ Low Cholesterol Discharge Activity: Return to Normal Activity Call your doctor if you observe: Shortness of breath, Dizziness, Fainting spells, Chest pain Home Medications: Medications to take at Discharge ALPRAZolam [Xanax] 0.5 mg PO BID 07/23/19 Albuterol Aerosols [Ventolin Aerosols] 1 inh INHALATION Q4H PRN PRN 07/23/19 Aspirin [Aspirin, Baby] 81 mg PO QHS 07/23/19 Budesonide Aerosol [Pulmicort Respules] 1 inh INHALATION BID 07/23/19 Formoterol Fumarate [Perforomist] 20 mcg INHALATION BID 07/23/19 Ipratropium/Albuterol Sulfate [Iprat-Albut 0.5-3(2.5) mg/3 ml] 1 inh INHALATION Q4H PRN PRN 07/23/19 Omeprazole 40 mg PO BID 07/23/19 Rosuvastatin Calcium [Crestor] 40 mg PO QHS 07/23/19 Tamsulosin HCl [Flomax] 0.8 mg PO DAILY 07/23/19 Metoprolol Succinate [Toprol Xl] 50 - 100 mg PO BID 08/08/19 Prednisone See Taper PO DAILY #30 tab 08/09/19 Following Prescrptions Were Given to Patient: Prednisone See Taper PO DAILY #30 tab Transmission Status: Received by [id number] Primary Care Physician: Tania Berger NP-C [Primary Care Provider] - Please follow up with your Primary Care Physician in: 1 Week Please Follow Up With: Nephrology When: Continue dialysis as scheduled Please Follow Up With: Evelyn Thurman NP-C When: 1 to 2 weeks Disposition: Home Minutes spent on discharge:: 35 Patient Condition:: Stable Medical Necessity - Tobacco Use Smoking Status: Current every day smoker Tobacco Use: Cigarettes Meaningful Use Info Meaningful Use Diagnoses (Choose all that apply): None applicable <SaesenaitManoj - Last Filed: 08/10/19 07:17> Discharge Date and Diagnosis - Secondary Discharge Diagnosis Chronic Problems (Last Reviewed 07/18/19 @ 13:21 by SEUN Flowers) Chronic atrial fibrillation (Chronic) Acute on chronic blood loss anemia (Chronic) RAVEN (obstructive sleep apnea) (Chronic) AHI 426. ESRD (end stage renal disease) (Chronic) History of non-ST elevation myocardial infarction (NSTEMI) (Chronic 01/21/11) Stented coronary artery (Chronic) 2003, JASON to circumflex ; 10/13/2009 tsfer from [facility] to [facility], total of 5 bare metal stents to RCA per Dr. Barrientos @ [facility]: 3.5 X 18 Mechanical Manufacturing Technician, followed distally by 3.0 X12 Mechanical Manufacturing Technician to distal RCA;3.5 X 15 Mechanical Manufacturing Technician, followed proximally by 4.0 X 18 Mechanical Manufacturing Technician to Mid RCA; 4.0 X 18 Mechanical Manufacturing Technician to Proximal RCA S/P CABG x 3 (Chronic 01/26/11) [facility] per Dr. Osito Hernandez: NICHOLAS to LAD, reverse SVG to OMbranch of CX, reverse SVG to PDA of RCA. PDA endarterectomy. Status post peripheral artery angioplasty with insertion of stent (Chronic ~2010) Right common iliac, [facility] Atherosclerotic heart disease of [place] coronary artery without angina pectoris (Chronic) 2003, JASON to circumflex ; 10/10/2009 tsfer from [facility] to [facility], total of 5 bare metal stents to RCA; CABG X 3 vessels @ [facility] 01/31/2011 (critical left main and restenosis of RCA stents) Diastolic CHF (Chronic) HLD (hyperlipidemia) (Chronic) HTN (hypertension) (Chronic) PAD (peripheral artery disease) (Chronic) COPD (chronic obstructive pulmonary disease) (Chronic) Tobacco dependence (Chronic) Anemia (Chronic) BPH (benign prostatic hyperplasia) (Chronic) Hospital Course and Treatment Summary of Care Provided: This patient was seen in conjunction with SEUN Obregon . I have independently interviewed and examined the patient and reviewed pertinent historical, laboratory, and other data. Please refer to SEUN Obregon note for details of this patient's presentation, findings, and recommendations. I have reviewed SEUN Obregon note and concur with documented findings. In brief, patient is a 68-year-old gentleman with multiple comorbidities presented with shortness of breath and assessment of COPD with acute exacerbation made admitted to a monitored bed for further management Assessment: 1. COPD with acute exacerbation 2. End-stage renal disease on hemodialysis 3. Chronic iron deficiency anemia secondary to chronic blood loss from AVMs 4. Coronary artery disease with previous CABG 5. Obstructive sleep apnea 6. Essential hypertension 7. BPH 8. Chronic diastolic congestive heart failure 9. Peripheral arterial disease 10. Dyslipidemia 11. DVT prophylaxis Hospital course: As documented above - Physical Exam Vitals/I&O's: Vital Signs Temp Pulse Resp BP Pulse Ox 98.7 F 89 21 H 139/59 H 95 08/09/19 09:20 08/09/19 13:26 08/09/19 13:26 08/09/19 09:20 08/09/19 13:25 Oxygen Flow Rate (L/min) 4 Oxygen Delivery Method Bi-pap Weight: 66.9 kg Body Mass Index (BMI) 23.8 Finger Stick Blood Glucose 200 Intake and Output for Last 24 Hours 08/08/19 08/09/19 08/10/19 23:59 23:59 23:59 Intake Total 240 / 240 740 / 740 Balance 240 / 240 740 / 740 Microbiology Past 72 Hours 08/08/19 20:15 Mucosa - Nasopharyngeal Respiratory Panel (PCR) - Final Laboratory Results 08/09/19 05:12: Diff Path Review Reviewed Code Visit Inpatient E&M: 25901 Disch Hosp
--- NOTE | 2019-08-09 15:24 | CASEMGMT ---
RN CM assessment: Face to Face with patient for initial transition planning/care coordination assessment. RN CM introduced self and role at [facility], pt voices understanding and consents to assessment at this time. Pt is sitting up on side of bed in no distress at this time. Pt is A/Ox4 at this time and answers all questions appropriately at this time. Pt's is at bedside during assessment. Care providers, pharmacy, and demographics verified at this time. PCP: Terra Berger Specialists: Corbin nephlorena; James, cardio in [place]; joanna Caicedo [facility] [place] Living Will/HPOA: Pt states has HPOA and it is on file at [facility] at this time. Pt is aware that he does not have a LW on file and this RN CM explained LW at this time, pt voices understanding. Pt does not want to complete LW at this time. LNOK: Heidy Gimenez, ; Lester Gimenez, son Living Arrangements: Pt states lives with in 1 story home with 2 steps in and states no concerns at home at this time. Pt states is independent with ADL's. Transportation: Pt states he/ drives and states no transportation concerns at this time. DME/HHC: Pt states cane, walker, scooter, nebulizer, cpap(brothers), and home oxygen 2 liters 24/7 thru [employer]. Pt states uses the oxygen only prn and at bedtime normally. Pt is waiting for bipap to be ready thru [employer] and [facility] to notify this RN CM when it is ready and then pt will be discharged at that time. Pt states does home HD every other day with 's assistance. Pt states no hx of HHC or SNF in the past and declines HHC/CCN. This RN CM did discuss palliative care with pt/ at this time and per , eTrra Berger did refer pt in the past and states that the co-pay was too high but she states that that was several years ago. Pt/ are willing to have palliative pamphlet at this time. Pt/ state that they have been 'moving' to new home 'for awhile' and would like to wait to do palliative until then. [facility] palliative pamphlet provided to pt/ at this time, voice understanding and gratitude. Pt states no concerns with going home at time of discharge. Pt is retired. Pt states smokes about 4-5cigarettes/day and drinks 2 beers daily normally. Pt states no further concerns/needs at this time. CM to follow for any further discharge planning/needs. Advised pt/ to ask for CM if any further questions/concerns/needs arise, voices understanding. Pt Goal: Home Plan: Home w/ new bipap. SStdereje ANDRADE CM
--- NOTE | 2019-08-09 15:36 | PCA ---
Left a message at both office and with Evelyn Thurman's office to call him to schedule follow up apts.
--- NOTE | 2019-08-10 13:25 | CASEMGMT ---
RAYMOND DC PHONE CALL DC DATE: 08/09/19 DC Disposition: Home Diagnosis on Discharge: COPD exacerbation LACE/STRATA: 27/01 Attempted call to phone. No answer. Deangelo Small RN ACM
== END 2019-08-09 15:57 | disposition home or self-care (01) | DRG 190 ==
LOC: ED 13:53 → PCU 14:52
PROVIDERS: Hospitalist; Admitting Provider Student in an Organized Health Care Education/Training Program; Emergency Provider Emergency Medicine; Family Provider Nurse Practitioner Family; PCP Nurse Practitioner Family; Referring Provider Student in an Organized Health Care Education/Training Program; Visit Provider Internal Medicine
DX: J44.1 Chronic obstructive pulmonary disease with (acute) exacerbation (principal); J96.21 Acute and chronic respiratory failure with hypoxia; N18.6 End stage renal disease; I13.2 Hypertensive heart and chronic kidney disease with heart failure and with stage 5 chronic kidney disease, or end stage renal disease; I50.32 Chronic diastolic (congestive) heart failure; Z99.2 Dependence on renal dialysis; N40.0 Benign prostatic hyperplasia without lower urinary tract symptoms; I25.10 Atherosclerotic heart disease of native coronary artery without angina pectoris; D50.0 Iron deficiency anemia secondary to blood loss (chronic); G47.33 Obstructive sleep apnea (adult) (pediatric); F41.9 Anxiety disorder, unspecified; E78.5 Hyperlipidemia, unspecified; F17.210 Nicotine dependence, cigarettes, uncomplicated; Z93.3 Colostomy status; Z95.1 Presence of aortocoronary bypass graft; Z95.5 Presence of coronary angioplasty implant and graft; Z99.81 Dependence on supplemental oxygen; I73.9 Peripheral vascular disease, unspecified
CPT/HCPCS: 36415; 71045; 80048; 83735; 84484; 85025; 87633; 93005; 94002; 94003; 94640; 99285; A4216

== ENCOUNTER 2019-09-22 15:14 | Emergency (ER) | payer MEDICARE, SELFPAY ==
[2019-09-19 10:22] VITALS: BMI 23.8
[2019-09-22] VITALS (7 sets, daily range): BP systolic 123–159; BP diastolic 57–68; PULSE 85–103; RESP 24–32; TEMP 36.6–37.6; O2SAT 88–95; BMI 25.6
--- NOTE | 2019-09-22 15:15 | EKG12_ITS ---
Test Reason : CP Blood Pressure : / mmHG Vent. Rate : 099 BPM Atrial Rate : 099 BPM P-R Int : 182 ms QRS Dur : 092 ms QT Int : 390 ms P-R-T Axes : -01 066 064 degrees QTc Int : 500 ms Normal sinus rhythm Possible Anterior infarct , age undetermined Prolonged QT Abnormal ECG Confirmed by KRISTINE MONTENEGRO, SMITHA ([id number]), editor department SHIRA HURD ([id number]) on 09/23/2019 12:05:39 PM Referred By: AMANDA Confirmed By:ANGELINA CARMONA MD
--- NOTE | 2019-09-22 15:25 | RAD_ITS ---
STUDY: X-RAY CHEST REASON FOR EXAM: Male, 68 years old. Right chest pain intermittently since last night. TECHNIQUE: Single AP portable view of the chest. COMPARISON: August 08, 2019. FINDINGS: Persistent bilateral pleural effusions and atelectasis. That on the left appears mildly increased. There is minimal interstitial changes in the lungs consistent with mild vascular congestion. Sternal cerclage wires are present from a prior sternotomy. The heart is normal in size. Normal mediastinum and justyn. Normal visualized pulmonary arteries. There is atherosclerotic calcification of the aortic arch with tortuosity. There are diffuse degenerative changes of the visualized thoracic spine. Normal visualized ribs, clavicles, and shoulders. There is no demonstrated abnormality of the visualized soft tissue structures of the upper abdomen. RAD/Chest 1 View (Portable) IMPRESSION: Mild increase in left pleural effusion when compared to prior study. Stable right pleural effusion and mild vascular congestion. Electronically Signed: John Bo DO at 16:04 EST Tel [phone], Service support ,
--- NOTE | 2019-09-22 15:28 | ED.VISSUMM ---
- ER Visit Summary Date of Service: 09/22/19 Chief Complaint: Chest pain and cough History of Present Illness: The patient is a 68 M stroke, CAD, AL, multiple cardiac stents, prior triple bypass, chronic end-stage renal disease on dialysis at home is also anemic from a GI bleed. And his vascular disease. Currently on no blood thinners because of his GI bleeds. He is also not on prednisone because of his GI bleeds. Patient states that he has had intermittent chest pain for last 2 days. Is not specifically pleuritic. He has a cough primarily clear sputum. No hemoptysis. No fever. No chills. No leg pain or swelling. Physical Examination: Older male vital signs are stable and afebrile. On oxygen is 91%. He is on home O2. HEENT exam unremarkable. Neck nontender no lymphadenopathy. No JVD. Lungs coarse breath sounds bilaterally. Prolonged expiratory phase. Heart regular rate and rhythm no murmur. Abdomen soft nontender. Extremities moves all 4. Calves are nontender without edema or cords. He has a dialysis fistula in his left arm. Neurologically is awake and alert with no focal motor deficits. Test Results: Chest x-ray portable 1 view shows bilateral pleural effusions chronic changes in a prior sternotomy. But no obvious pneumonia. EKG shows a sinus rhythm rate of 99 with no acute signs of AL or ischemia. White count is 6. Hemoglobin 9 which is his baseline. Electrolytes unremarkable potassium 3.4. Creatinine 5.78 which against his baseline troponin 0 0.023. Emergency Department Course and Treatment: Older male with cough and nonexertional chest pain Repeat exam he is doing well at 1720. Patient diet his family member discussed all his test results. I explained to him I did not have a specific diagnosis that would need admitted. He denied talked about admission versus discharge home and they are comfortable being discharged to home. They have treatment second toe at home. He and his family were adamant that this was an early infection and has had this happen this way before and requested that I treat him with an antibiotic. Treatment Plan: Discharged to home. Aerosols as needed. Follow-up with primary care physician. Zithromax antibiotic. Disposition: Discharge Impression: Acute dyspnea and chest pain secondary to bilateral pleural effusions End-stage renal disease on dialysis. Chronic anemia Vascular disease. Acute exacerbation of COPD This note was generated with Dragon dictation software. It may contain incorrect words, spelling, and punctuation that were not noted in review of the chart prior to signing ED Disposition - Plan for ED Patient: Referrals: Tania Berger, SCALL[facility] RAKER-C [Primary Care Provider] -
--- NOTE | 2019-09-22 15:28 | ED.RN ---
DR GOYAL INFORMED PT TRIGGERS SEPSIS. PER DR GOYAL, NO CULTURES NEEDED
[2019-09-22 15:38] LABS: Absolute Lymphocyte Count 0.74 X10^3/uL (0.83-4.51); Absolute Neutrophil Count 5.1 X10^3/uL (2.0-7.7); Basophil# 0.03 X10^3/uL; Basophil% 0.4 % (0-1); Eosinophil# 0.19 X10^3/uL; Eosinophils% 2.8 % (0-5); Hematocrit 28.7 % (40-54); Hemoglobin 9.1 g/dL (13.0-16.5); Lymphocyte # 0.74 X10^3/ul (4.0); Lymphocyte % 10.8 % (19-41); Mean Corp Hgb Conc 31.7 g/dL (32-36); Mean Corpuscular Hgb 32.9 pg (27.0-32.0); Mean Corpuscular Volume 103.6 fL (80-94); Mean Platelet Vol. 10.1 fl (6.2-12.0); Monocyte# 0.73 X10^3/uL; Monocyte% 10.7 % (0-10); NRBC Flagged by Analyzer 0 % (0-5); Neutrophil # 5.13 X10^3/uL (2.7-7.7); Neutrophil % 74.9 % (47-70); Platelet Count 135 K/mm3 (150-450); RBC Distribution Width CV 15.4 % (11.6-14.6); RBC Distribution Width SD 58.5 fl (35.1-43.9); Red Blood Count 2.77 M/mm3 (4.6-6.2); White Blood Count 6.9 K/mm3 (4.4-11.0)
[2019-09-22] MEDS: Ipratropium/Albuterol Sulfate 3 ML AMPUL.NEB INHALATION (15:50)
[2019-09-22] MEDS: Albuterol 2.5 MG/3 ML VIAL.NEB. INHALATION ×3 (15:50→16:22)
[2019-09-22 15:54] LABS: Anion Gap 9 (5-15); BUN 51 mg/dL (7-18); BUN/Creat Ratio 8.8 RATIO (10-20); Calcium,Total 8.7 mg/dL (8.5-10.1); Chloride 96 mmol/L (98-107); Creatinine, Serum 5.78 mg/dL (0.70-1.30); EST Glomerular Filtration Rate 10 mL/min (>60); Est Glom Filt Rate - Afr Amer 13 mL/min (>60); Estimated Creatinine Clearance 11.19 ml/min; Glucose 102 mg/dL (74-106); Potassium 3.4 mmol/L (3.5-5.1); Sodium Level 133 mmol/L (136-145)
--- NOTE | 2019-09-22 17:29 | ED.DEP ---
ED Disposition - Plan for ED Patient: Disposition: Home or Assisted Living Instructions: CHEST PAIN, Uncertain Cause Referrals: Tania Berger, ARMEN-C [Primary Care Provider] - 3-5 Days Additional Instructions: Culture antibiotic prescription the Zithromax Z-VALERIANO into the [facility] pharmacy. They closed at 7. Use your inhalers at home. Follow-up with your doctor this week. Return if feeling worse.
== END 2019-09-22 17:50 | disposition home or self-care (01) ==
PROVIDERS: Emergency Provider Emergency Medicine; Family Provider Nurse Practitioner Family; PCP Nurse Practitioner Family
DX: J90 Pleural effusion, not elsewhere classified (principal); N18.6 End stage renal disease; Z99.2 Dependence on renal dialysis; D63.8 Anemia in other chronic diseases classified elsewhere; I25.10 Atherosclerotic heart disease of native coronary artery without angina pectoris; J44.1 Chronic obstructive pulmonary disease with (acute) exacerbation; I25.2 Old myocardial infarction; Z86.73 Personal history of transient ischemic attack (TIA), and cerebral infarction without residual deficits; Z87.19 Personal history of other diseases of the digestive system; Z95.1 Presence of aortocoronary bypass graft; Z79.899 Other long term (current) drug therapy
CPT/HCPCS: 71045; 80048; 84484; 85025; 93005; 94640; 99284

== ENCOUNTER 2019-10-11 09:17 | Day surgery (SDC) | payer MEDICARE, SELFPAY ==
--- NOTE | 2019-09-20 12:32 | HP_ITS ---
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 Medications Albuterol Aerosols [Ventolin Aerosols] 1 inh INHALATION Q4H PRN PRN 07/23/19 [History Confirmed 09/19/19] Aspirin [Aspirin, Baby] 81 mg PO QHS 07/23/19 [History Confirmed 09/19/19] Budesonide Aerosol [Pulmicort Respules] 1 inh INHALATION BID 07/23/19 [History Confirmed 09/19/19] Formoterol Fumarate [Perforomist] 20 mcg INHALATION BID 07/23/19 [History Confirmed 09/19/19] Ipratropium/Albuterol Sulfate [Iprat-Albut 0.5-3(2.5) mg/3 ml] 1 inh INHALATION Q4H PRN PRN 07/23/19 [History Confirmed 09/19/19] Omeprazole 40 mg PO BID 07/23/19 [History Confirmed 09/19/19] Rosuvastatin Calcium [Crestor] 40 mg PO QHS 07/23/19 [History Confirmed 09/19/19] Tamsulosin HCl [Flomax] 0.8 mg PO DAILY 07/23/19 [History Confirmed 09/19/19] Metoprolol Succinate [Toprol Xl] 50 - 100 mg PO BID 08/08/19 [History Confirmed 09/19/19] glycopyrrolate 25 mcg/mL solution for nebulization-nebulizer accessor. 1 ml INHALATION BID #60 ml 08/30/19 [Rx Confirmed 09/19/19] glycopyrrolate 25 mcg/mL solution for nebulization-nebulizer,accessor. 1 ml INHALATION BID #60 ml 09/04/19 [Rx Confirmed 09/19/19] PENDING SALE TO [facility] Medical History COPD exacerbation (Acute) Acute respiratory failure with hypoxia (Acute) ESRD (end stage renal disease) (Chronic) History of non-ST elevation myocardial infarction (NSTEMI) (Chronic 01/21/11) Atherosclerotic heart disease of [place] coronary artery without angina pectoris (Chronic) Diastolic CHF (Chronic) HLD (hyperlipidemia) (Chronic) HTN (hypertension) (Chronic) PAD (peripheral artery disease) (Chronic) COPD (chronic obstructive pulmonary disease) (Chronic) Tobacco dependence (Chronic) Anemia (Chronic) BPH (benign prostatic hyperplasia) (Chronic) Surgical History Stented coronary artery (Chronic) S/P CABG x 3 (Chronic 01/26/11) Status post peripheral artery angioplasty with insertion of stent (Chronic ~2010) history of surgically created arteriovenous fistula (Acute) s/p fistulogram (Acute ~09/28/18) Family History Father CAD (coronary artery disease) Hypertension Kidney disease CVA (cerebral vascular accident) Other Cancer Social History (Updated 09/20/19 @ 13:47 by Tiara Perales PA-C) Smoking Status: Current every day smoker HPI HPI HPI: ANGELINA FORREST, is a 68 M who presents to the office today for HPI HPI Surgical H&P: Yes HPI: ANGELINA FORREST, is a 68 M who presents to the office today for increased left upper extremity swelling. Patient notes a 1 week history of increased left arm swelling. He states he does dialysis at home. His helps with needle placement. She denies difficulty with placing the needles. She notes on 2 occasions there was bleeding around the bottom needle site. Patient's also notes that patient has completed each of his dialysis treatments without stopping early. Patient is currently holding his ASA due to history of GI bleeds. He is awaiting a phone call from his physician on when to restart this medication. 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 He noted scratching the the area in his sleep which lead to an open area. Patient' s last intervention was on 03/20/2019 which demonstrated left subclavian central venous stenosis. A 10 x 4 [place] angioplasty and 39 mm VBX Viabahn stent graft and 14 x 40 mm [place] balloon was used to successfully treat the stenosis. ROS General General: Yes weight change and fatigue; no appetite, colon cancer, breast cancer or weakness HEENT HEENT: No difficulty swallowing, eye injury, eye surgery, swollen glands or hoarseness Endo Endocrine: No thyroid disease, diabetes mellitus, thyroid cancer, Hair loss, heat intolerance or cold intolerance Skin Skin: No rash or changing moles Breast Breast: No left breast lump, right breast lump, nipple discharge, breast pain, abnormal mammogram, abnormal US or breast enlargement Musc Musculoskeletal: Yes arthritis; no back problems, rheumatoid arthritis, gout or joint pain Cardio Cardiovascular: Yes heart disease, high blood pressure, heart attack and heart stent; no murmur, pacemaker, atrial fibrillation, palpitations, shortness of breat with exertion or chest pain Psych Psychiatric: Yes anxiety; no depression or hearing voices Resp Respiratory: Yes shortness of breath, No sleep apnea, No cough, No COPD, No asthma, No emphysema, No wheezing Gastro Gastrointestinal: No abdominal pain, No nausea or vomiting, No diarrhea, No constipation, No blood in stool, No acid reflux, No hemorrhoids, No ulcers, No gallbladder problem, No black,tarry stools Fernando Hematologic: Yes blood thinners, No blood disorders, No bleeding, No anemia, No blood clots Neuro Neurologic: No weakness Exam Const General: cooperative, healthy appearing, comfortable, no acute distress [facility] Head: normal to inspection Eyes General: appearance normal, both eyes and all related structures Neck Neck: normal visual inspection Neck mass: No Chest Breast Palpation: No nipple discharge Resp Effort & Inspection: normal respiratory effort Auscultation: wheezes Other: Patient is on oxygen via nasal canula Cardio Rate: regular rate Rhythm: regular rhythm Heart Sounds: no murmurs GI Inspection: normal to inspection Skin General: excoriations Neuro General: no focal motor deficits Extrem Other: left upper extremity- small scab noted inferior to the incision at the small pseudoaneurysmal site. Swelling notable at the forearm and hand. Good pulse, bruit and thrill. Psych Appearance: grossly normal Affect: normal affect Assessment & Plan Problems 1. Problem with dialysis access, initial encounter T82.163L Plan Dr. Lua also evaluated this patient. Dr. Lua will plan to perform a left upper extremity fistulogram. Plan to access antegrade close to the antecubital space. Stay away from small pseudoaneurysmal area. Will need multiple sized Viabahn stent grafts. Procedure details, risks and benefits have been explained. Patient and his have had the opportunity to ask and have questions answered. Patient verbally understands and agrees with the plan. Viabahn rep will be available for the case. Coding Level of Care Code Off vis,est,level 4 Diagnoses Problem with dialysis access, initial encounter T82.007O ??Encounter type: initial encounter 09/20/19 [id number] <Electronically signed by Tiara adamson PA-C> Date _ Tiara Perales PA-C
[2019-09-22 15:15] VITALS: BMI 25.6
[2019-10-08 09:57] VITALS: BMI 24.8
--- NOTE | 2019-10-11 10:53 | PCM.HP.BLA ---
Problem List (1) Problem with dialysis access Status: Acute Qualifiers: Encounter type: initial encounter Qualified Code(s): T82.898A - Other specified complication of vascular prosthetic devices, implants and grafts, initial encounter History and Physical Date of Admission: 10/11/19 Intake Visit Reasons: L ARM SWELLING/ BLEEDING-NEEDS FISTULOGRAM Chief Complaint: SOB Psychiatric Np Required: No Is patient in pain?: No Allergies irbesartan [From Avapro] Allergy (Severe, Verified 09/19/19 10:12) Blisters zolpidem [From Ambien] Adverse Reaction (Severe, Verified 09/19/19 10:12) made me go crazy, memory loss amoxicillin Adverse Reaction (Intermediate, Verified 09/19/19 10:12) PASSES BLOOD IN STOOL metronidazole [From Flagyl] Adverse Reaction (Verified 09/19/19 10:12) pt states he got palpitations and nose bleed. Medications Albuterol Aerosols [Ventolin Aerosols] 1 inh INHALATION Q4H PRN PRN 07/23/19 [History Confirmed 09/19/19] Aspirin [Aspirin, Baby] 81 mg PO QHS 07/23/19 [History Confirmed 09/19/19] Budesonide Aerosol [Pulmicort Respules] 1 inh INHALATION BID 07/23/19 [History Confirmed 09/19/19] Formoterol Fumarate [Perforomist] 20 mcg INHALATION BID 07/23/19 [History Confirmed 09/19/19] Ipratropium/Albuterol Sulfate [Iprat-Albut 0.5-3(2.5) mg/3 ml] 1 inh INHALATION Q4H PRN PRN 07/23/19 [History Confirmed 09/19/19] Omeprazole 40 mg PO BID 07/23/19 [History Confirmed 09/19/19] Rosuvastatin Calcium [Crestor] 40 mg PO QHS 07/23/19 [History Confirmed 09/19/19] Tamsulosin HCl [Flomax] 0.8 mg PO DAILY 07/23/19 [History Confirmed 09/19/19] Metoprolol Succinate [Toprol Xl] 50 - 100 mg PO BID 08/08/19 [History Confirmed 09/19/19] glycopyrrolate 25 mcg/mL solution for nebulization-nebulizer accessor. 1 ml INHALATION BID #60 ml 08/30/19 [Rx Confirmed 09/19/19] glycopyrrolate 25 mcg/mL solution for nebulization-nebulizer,accessor. 1 ml INHALATION BID #60 ml 09/04/19 [Rx Confirmed 09/19/19] [facility] Medical History COPD exacerbation (Acute) Acute respiratory failure with hypoxia (Acute) ESRD (end stage renal disease) (Chronic) History of non-ST elevation myocardial infarction (NSTEMI) (Chronic 01/21/11) Atherosclerotic heart disease of [place] coronary artery without angina pectoris (Chronic) Diastolic CHF (Chronic) HLD (hyperlipidemia) (Chronic) HTN (hypertension) (Chronic) PAD (peripheral artery disease) (Chronic) COPD (chronic obstructive pulmonary disease) (Chronic) Tobacco dependence (Chronic) Anemia (Chronic) BPH (benign prostatic hyperplasia) (Chronic) Surgical History Stented coronary artery (Chronic) S/P CABG x 3 (Chronic 01/26/11) Status post peripheral artery angioplasty with insertion of stent (Chronic ~2010) history of surgically created arteriovenous fistula (Acute) s/p fistulogram (Acute ~09/28/18) Family History Father CAD (coronary artery disease) Hypertension Kidney disease CVA (cerebral vascular accident) Other Cancer Social History (Updated 09/20/19 @ 13:47 by Tiara Perales PA-C) Smoking Status: Current every day smoker HPI HPI HPI: ANGELINA FORREST, is a 68 M who presents to the office today for HPI HPI Surgical H&P: Yes HPI: ANGELINA FORREST, is a 68 M who presents to the office today for increased left upper extremity swelling. Patient notes a 1 week history of increased left arm swelling. He states he does dialysis at home. His helps with needle placement. She denies difficulty with placing the needles. She notes on 2 occasions there was bleeding around the bottom needle site. Patient's also notes that patient has completed each of his dialysis treatments without stopping early. Patient is currently holding his ASA due to history of GI bleeds. He is awaiting a phone call from his physician on when to restart this medication. 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 He noted scratching the the area in his sleep which lead to an open area. Patient' s last intervention was on 03/20/2019 which demonstrated left subclavian central venous stenosis. A 10 x 4 [place] angioplasty and 39 mm VBX Viabahn stent graft and 14 x 40 mm [place] balloon was used to successfully treat the stenosis. ROS General General: Yes weight change and fatigue; no appetite, colon cancer, breast cancer or weakness HEENT HEENT: No difficulty swallowing, eye injury, eye surgery, swollen glands or hoarseness Endo Endocrine: No thyroid disease, diabetes mellitus, thyroid cancer, Hair loss, heat intolerance or cold intolerance Skin Skin: No rash or changing moles Breast Breast: No left breast lump, right breast lump, nipple discharge, breast pain, abnormal mammogram, abnormal US or breast enlargement Musc Musculoskeletal: Yes arthritis; no back problems, rheumatoid arthritis, gout or joint pain Cardio Cardiovascular: Yes heart disease, high blood pressure, heart attack and heart stent; no murmur, pacemaker, atrial fibrillation, palpitations, shortness of breat with exertion or chest pain Psych Psychiatric: Yes anxiety; no depression or hearing voices Resp Respiratory: Yes shortness of breath, No sleep apnea, No cough, No COPD, No asthma, No emphysema, No wheezing Gastro Gastrointestinal: No abdominal pain, No nausea or vomiting, No diarrhea, No constipation, No blood in stool, No acid reflux, No hemorrhoids, No ulcers, No gallbladder problem, No black,tarry stools Fernando Hematologic: Yes blood thinners, No blood disorders, No bleeding, No anemia, No blood clots Neuro Neurologic: No weakness Exam Const General: cooperative, healthy appearing, comfortable, no acute distress [facility] Head: normal to inspection Eyes General: appearance normal, both eyes and all related structures Neck Neck: normal visual inspection Neck mass: No Chest Breast Palpation: No nipple discharge Resp Effort & Inspection: normal respiratory effort Auscultation: wheezes Other: Patient is on oxygen via nasal canula Cardio Rate: regular rate Rhythm: regular rhythm Heart Sounds: no murmurs GI Inspection: normal to inspection Skin General: excoriations Neuro General: no focal motor deficits Extrem Other: left upper extremity- small scab noted inferior to the incision at the small pseudoaneurysmal site. Swelling notable at the forearm and hand. Good pulse, bruit and thrill. Psych Appearance: grossly normal Affect: normal affect Assessment & Plan Problems 1. Problem with dialysis access, initial encounter T82.563T Plan Dr. Lua also evaluated this patient. Dr. Lua will plan to perform a left upper extremity fistulogram. Plan to access antegrade close to the antecubital space. Stay away from small pseudoaneurysmal area. Will need multiple sized Viabahn stent grafts. Procedure details, risks and benefits have been explained. Patient and his have had the opportunity to ask and have questions answered. Patient verbally understands and agrees with the plan. Viabahn rep will be available for the case. Coding Level of Care Code Off vis,est,level 4 Diagnoses Problem with dialysis access, initial encounter T82.797P ??Encounter type: initial encounter 09/20/19 1347 <Electronically signed by Tiara Perales PA-C> Date Tiara Perales PA-C I have re-examined the patient. There are no clinical changes since date of exam.
--- NOTE | 2019-10-11 11:41 | OP.PCM_ITS ---
Problem List (1) Problem with dialysis access Status: Acute Qualifiers: Encounter type: initial encounter Qualified Code(s): T82.898A - Other specified complication of vascular prosthetic devices, implants and grafts, initial encounter Report of Operation Date of Procedure: 10/11/19 Pre-Operative Diagnosis: Increased bleeding and swelling left upper extremity related to hemodialysis fistula brachiocephalic Post-Operative Diagnosis: High-grade end of stent stenosis left upper extremity brachiocephalic AV fistula Surgery/Procedure Performed:: Left upper extremity fistulogram with a 14 x 4 [place] angioplasty Description of Surgical Findings:: Timeout and informed consent was obtained. 68-year-old gent was taken to the special procedures lab placed on the table. The left extremity sterilely prepped and draped. Ultrasound was performed demonstrating the cephalic vein closer to the brachial arterial anastomosis. Antegrade with flow 2% lidocaine was instilled under ultrasound guidance. Image capture performed. Micropuncture needle inserted. Micropuncture wire inserted. 6 [place] short sheath was inserted. Using Isovue contrast total of 15 cc a fistulogram was obtained. This demonstrated moderate stenosis in the mid left upper arm cephalic vein but high-grade stenosis within a previously placed balloon expanda ble Viabahn stent graft which resided within the left proximal subclavian vein. The more distal edge of that had a high-grade 90% stenosis. I up sheath to a 7 [place] sheath. I was able to get a Glidewire past the stenosis. I placed a 14 x 4 [place] balloon and performed balloon angioplasty up to 20 julio of pressure. Completion fistulogram demonstrated resolution of the area of stenosis. Because of the diameter of the vein at that location I had questions as to whether a non-balloon expandable Viabahn stent graft of 10 mm in diameter would actually meet the wall. I felt there was some risk that it would not get the vein was of ey[place] caliber larger than that and so I did not place any additional stents today. The patient did have mild discomfort with angioplasty suggesting that this is close to the crossover point of the clavicle and so I do not feel comfortable placing a balloon expandable stent in this location as it is crushable There was a very strong pulse thrill and bruit at the completion. I elected not to treat the mid left upper arm moderate fistula stenosis because of the excellent clinical response This sheath was removed U suture of 4-0 nylon was placed there was a wonderful thrill at the completion Impression Successfully treated left upper extremity brachiocephalic arteriovenous fistula with resolved in-stent stenosis left subclavian vein. Demian Lua M.D., F.A.C.S. It is of note that 50 mcg of fentanyl and 1 mg of Versed were provided as intravenous sedation Type of Anesthesia:: IV Sedation, Local
== END 2019-10-11 12:50 | disposition home or self-care (01) ==
PROVIDERS: Family Provider Nurse Practitioner Family; PCP Nurse Practitioner Family; Referring Provider Surgery; Visit Provider Surgery
DX: T82.858A Stenosis of other vascular prosthetic devices, implants and grafts, initial encounter (principal); I13.2 Hypertensive heart and chronic kidney disease with heart failure and with stage 5 chronic kidney disease, or end stage renal disease; N18.6 End stage renal disease; I50.32 Chronic diastolic (congestive) heart failure; M79.89 Other specified soft tissue disorders; Z99.2 Dependence on renal dialysis; J44.9 Chronic obstructive pulmonary disease, unspecified; E78.5 Hyperlipidemia, unspecified; D64.9 Anemia, unspecified; I73.9 Peripheral vascular disease, unspecified; N40.0 Benign prostatic hyperplasia without lower urinary tract symptoms; F17.200 Nicotine dependence, unspecified, uncomplicated; I25.2 Old myocardial infarction; Z79.82 Long term (current) use of aspirin; Z79.899 Other long term (current) drug therapy; Z88.8 Allergy status to other drugs, medicaments and biological substances; Z88.1 Allergy status to other antibiotic agents; Z88.0 Allergy status to penicillin; Z95.1 Presence of aortocoronary bypass graft
CPT/HCPCS: 36902; 76937; 99152; 99153; Q9967; C1769; C1894

== ENCOUNTER 2019-11-14 00:21 | Inpatient (IN) | payer MEDICARE, SELFPAY ==
[2019-10-08 09:57] VITALS: BMI 24.8
[2019-11-13 23:33] VITALS: PULSE 86; RESP 12; RESP 31; O2SAT 98; BMI 24.1
[2019-11-13 23:40] VITALS: BP 132/52; PULSE 76; RESP 27; TEMP 36.4; O2SAT 99
[2019-11-13 23:53] VITALS: PULSE 84
[2019-11-14] VITALS (23 sets, daily range): BP systolic 108–129; BP diastolic 44–76; PULSE 71–101; RESP 12–32; TEMP 36.4–37.1; O2SAT 96–100
--- NOTE | 2019-11-14 01:04 | PCM.HP.STD ---
Problem List (1) Chronic atrial fibrillation Status: Chronic (2) RAVEN (obstructive sleep apnea) Status: Chronic Comment: AHI 426. (3) ESRD (end stage renal disease) Status: Chronic (4) History of non-ST elevation myocardial infarction (NSTEMI) Status: Chronic (5) Stented coronary artery Status: Chronic Comment: 2003, JASON to circumflex ; 10/13/2009 tsfer from [facility] to [facility], total of 5 bare metal stents to RCA per Dr. Barrientos @ [facility]: 3.5 X 18 [employer], followed distally by 3.0 X12 [employer] to distal RCA;3.5 X 15 [employer], followed proximally by 4.0 X 18 [employer] to Mid RCA; 4.0 X 18 [employer] to Proximal RCA (6) S/P CABG x 3 Status: Chronic Comment: [facility] per Dr. Osito Hernandez: NICHOLAS to LAD, reverse SVG to OMbranch of CX, reverse SVG to PDA of RCA. PDA endarterectomy. (7) Diastolic CHF Status: Chronic Qualifiers: (8) HLD (hyperlipidemia) Status: Chronic Qualifiers: (9) HTN (hypertension) Status: Chronic Qualifiers: (10) PAD (peripheral artery disease) Status: Chronic (11) COPD (chronic obstructive pulmonary disease) Status: Chronic Qualifiers: (12) Tobacco dependence Status: Chronic (13) Anemia Status: Chronic Qualifiers: (14) BPH (benign prostatic hyperplasia) Status: Chronic Qualifiers: History of Present Illness Date of Admission: 11/14/19 Chief Complaint: Shortness of breath, chest pain. The patient is a 69 year old M patient with past medical history as mentioned above directly admitted from outside facility for shortness of breath and chest pain. Patient went to [facility] ER today for worsening shortness of breath that has been going on for 4 to 5 days, initially was with moderate exertion, has been progressive to become even at minimal exertion sometimes at rest, associated with mild productive cough with streaks of blood in the sputum, need to go up on oxygen but he continued to be more short of breath without improvement, aggravated by movement and without significant relief with rest. Also, he complained of chest pain, right-sided chest pain, dull aching pain, intermittent, mainly upon coughing and without aggravating or relieving factors. He does have a history of ESRD and he has been on dialysis at home 5 days a week. He mentioned that he has been doing his dialysis according to his doctor's recommendations and he did dialysis yesterday at home. He mentioned that he was discharged from hospital in [place] this past Tuesday and he was admitted for worsening shortness of breath. At the other facility ER, patient was dyspneic and tachypneic and he was started on BiPAP. His routine blood work remarkable for hemoglobin of 7.4 g/dL, BUN of 51, creatinine was 4.42. His BNP was 2394. Troponin was 0.07. ABG revealed pH of 7.50, PO2 of 70 and PCO2 of 34. Chest x-ray reviewed and revealed small bilateral effusion and bilateral pulmonary vascular congestion with Ivy B-lines. EKG revealed A. fib with controlled heart rate, no acute ischemic changes. He is being admitted for acute on chronic hypoxic respiratory failure probably due to acute on chronic diastolic CHF as well as acute on chronic anemia. Past Medical History Past Medical History (Chronic Problems): Chronic Problems (Last Updated 11/14/19 @ 01:04 by Amadou Shane MD) Chronic atrial fibrillation (Chronic) Problem with dialysis access (Chronic) RAVEN (obstructive sleep apnea) (Chronic) AHI 426. ESRD (end stage renal disease) (Chronic) History of non-ST elevation myocardial infarction (NSTEMI) (Chronic 01/21/11) Stented coronary artery (Chronic) 2003, JASON to circumflex ; 10/13/2009 tsfer from [facility] to [facility], total of 5 bare metal stents to RCA per Dr. Barrientos @ [facility]: 3.5 X 18 [employer], followed distally by 3.0 X12 [employer] to distal RCA;3.5 X 15 [employer], followed proximally by 4.0 X 18 [employer] to Mid RCA; 4.0 X 18 [employer] to Proximal RCA S/P CABG x 3 (Chronic 01/26/11) [facility] per Dr. Osito Hernandez: NICHOLAS to LAD, reverse SVG to OMbranch of CX, reverse SVG to PDA of RCA. PDA endarterectomy. Status post peripheral artery angioplasty with insertion of stent (Chronic ~2010) Right common iliac, [facility] Atherosclerotic heart disease of [place] coronary artery without angina pectoris (Chronic) 2003, JASON to circumflex ; 10/10/2009 tsfer from [facility] to [facility], total of 5 bare metal stents to RCA; CABG X 3 vessels @ [facility] 01/31/2011 (critical left main and restenosis of RCA stents) Diastolic CHF (Chronic) HLD (hyperlipidemia) (Chronic) HTN (hypertension) (Chronic) PAD (peripheral artery disease) (Chronic) COPD (chronic obstructive pulmonary disease) (Chronic) Tobacco dependence (Chronic) Anemia (Chronic) BPH (benign prostatic hyperplasia) (Chronic) Medical History: Medical History (Last Updated 11/14/19 @ 01:04 by Amadou Shane MD) ESRD (end stage renal disease) (Chronic) N18.6 History of non-ST elevation myocardial infarction (NSTEMI) (Chronic) Onset Date: 01/21/11 I25.2 Atherosclerotic heart disease of [place] coronary artery without angina pectoris (Chronic) I25.10 2003, JASON to circumflex ; 10/10/2009 tsfer from [facility] to [facility], total of 5 bare metal stents to RCA; CABG X 3 vessels @ [facility] 01/31/2011 (critical left main and restenosis of RCA stents) Diastolic CHF (Chronic) I50.30 HLD (hyperlipidemia) (Chronic) E78.5 HTN (hypertension) (Chronic) I10 PAD (peripheral artery disease) (Chronic) I73.9 COPD (chronic obstructive pulmonary disease) (Chronic) J44.9 Tobacco dependence (Chronic) F17.200 Anemia (Chronic) D64.9 BPH (benign prostatic hyperplasia) (Chronic) N40.0 Allergies irbesartan [From Avapro] Allergy (Severe, Verified 10/08/19 09:58) Blisters zolpidem [From Ambien] Adverse Reaction (Severe, Verified 10/08/19 09:58) made me go crazy, memory loss amoxicillin Adverse Reaction (Intermediate, Verified 10/08/19 09:58) PASSES BLOOD IN STOOL TOLERATES ZOSYN PASSES BLOOD IN STOOL metronidazole [From Flagyl] Adverse Reaction (Verified 10/08/19 09:58) pt states he got palpitations and nose bleed. pt states he got palpitations and nose bleed. Home Medications: Ambulatory Orders Medication Instructions Recorded Albuterol Aerosols [Ventolin 1 inh INHALATION Q4H PRN PRN 07/23/19 Aerosols] Budesonide Aerosol [Pulmicort 1 inh INHALATION BID 07/23/19 Respules] Formoterol Fumarate [Perforomist] 20 mcg INHALATION BID 07/23/19 Ipratropium/Albuterol Sulfate 1 inh INHALATION Q4H PRN PRN 07/23/19 [Iprat-Albut 0.5-3(2.5) mg/3 ml] Omeprazole 20 mg PO BID 07/23/19 Rosuvastatin Calcium [Crestor] 40 mg PO QHS 07/23/19 Tamsulosin HCl [Flomax] 0.4 mg PO DAILY 07/23/19 Metoprolol Succinate [Toprol Xl] 50 mg PO BID 08/08/19 ALPRAZolam [Xanax] 1 mg PO TID PRN PRN 11/14/19 Amlodipine [Norvasc] 10 mg PO DAILY 11/14/19 Cefdinir 300 mg PO Q12H 11/14/19 Surgical History: Surgical History (Last Reviewed 09/19/19 @ 10:22 by Judith Powell) Stented coronary artery (Chronic) Z95.5 2003, JASON to circumflex ; 10/13/2009 tsfer from [facility] to [facility], total of 5 bare metal stents [facility]: 3.5 X 18 [employer], followed distally by 3.0 X12 [employer]orer to distal RCA;3.5 X 15 [employer], followed proximally by 4.0 X 18 [employer]orer to Mid RCA; 4.0 X 18 [employer]orer to Proximal RCA S/P CABG x 3 (Chronic) Onset Date: 01/26/11 Z95.1 [facility] per Dr. Osito Hernandez: NICHOLAS to LAD, reverse SVG to OMbranch of CX, reverse SVG to PDA of RCA. PDA endarterectomy. Status post peripheral artery angioplasty with insertion of stent (Chronic) Onset Date: ~2010 Z95.820 Right common iliac, [facility] history of surgically created arteriovenous fistula s/p fistulogram Onset Date: ~09/28/18 Surgical History: coronary bypass surgery, tonsillectomy, - - CABG x3, multiple PCI coronary arteries, right common iliac angioplasty and stenting, aVF, tonsillectomy, multiple endoscopies with intervention. Psychiatric History: Anxiety Lives: Spouse/ Significant Other Smoking Status: Former smoker - *Family History Maternal Family History: Family History (Last Reviewed 09/19/19 @ 10:22 by Judith Powell) Father CAD (coronary artery disease) Hypertension Kidney disease CVA (cerebral vascular accident) Other Cancer History Items: Heart Disease Paternal Family History: Family History (Last Reviewed 09/19/19 @ 10:22 by Judith Powell) Father CAD (coronary artery disease) Hypertension Kidney disease CVA (cerebral vascular accident) Other Cancer History Items: Heart Disease, Hypertension, Renal Disease Review of Systems Constitutional: Reports: Weakness. Denies: Anorexia, Chills, Fever Eyes: Denies: Blurred vision, Double vision, Drainage, Redness HEENT: Denies: Difficulty Hearing, Ear Pain, Eye Pain, Nasal Congestion, Sore Throat Cardiovascular: Reports: Chest Pain. Denies: Chest Pressure, Chest Tightness, Edema, Heaviness, Palpitations, Paroxysmal Noc. Dyspnea, Syncope Respiratory: Reports: Cough, Pleuritic Pain, Shortness of Breath, Shortness of breath upon exertion, Sputum production. Denies: Wheezing Gastrointestinal: Denies: Abdominal Pain, Constipation, Diarrhea, Nausea, Vomiting Genitourinary: Denies: Dysuria, Frequency, Hematuria Musculoskeletal: Denies: Arm Pain, Back Pain, Foot Pain Skin: Denies: Dryness, Rash Neurological: Denies: Balance problems, Double vision, Change in Speech, Slurred speech, Confusion, Headaches, Incoordination, Numbness Psychiatric: Reports: Anxiety. Denies: Depression Endocrine: Denies: Change in Body Habitus, Polydipsia, Polyuria VTE Information - Inpt Only VTE Present on Admission: No VTE Mechan Device Prophylaxis: None VTE Pharm Prophylaxis ordered?: Yes - Physical Exam Vitals/I&O's: Vital Signs Temp Pulse Resp BP Pulse Ox 97.6 F L 84 28 H 132/52 H 99 11/13/19 23:40 11/13/19 23:53 11/14/19 00:00 11/13/19 23:40 11/14/19 00:00 Oxygen Delivery Method Bi-pap Weight: 147 lb 4.301 oz Body Mass Index (BMI) 24.1 Finger Stick Blood Glucose 200 Intake and Output for Last 24 Hours 11/12/19 11/13/19 11/14/19 23:59 23:59 23:59 Intake Total 0 / 0 Balance 0 / 0 General: Alert, Oriented x3, Cooperative, - - Moderately short of breath. HEENT: Atraumatic, PERRLA, EOMI, Normocephalic Oral: Moist Mucosa, No Gingival or Mucosal Lesions/ Ulcerations Neck: Supple, No JVD, Negative Carotid Bruits, Trachea Midline, Thyroid Normal Size and Texture Lungs: No wheeze, Diminished, Rales, Rhonchi, Short of Breath, - - Decreased breath sounds bilateral, bilateral crackles, rhonchi. Cardiovascular: Normal S1, Normal S2, PMI Normal, Irregular Rate Abdomen: Bowel Sounds Present, Soft, Non Tender, Non-Distended, No Hepato-splenomegaly Extremities: No clubbing, No cyanosis, Edema - Edema of the left lower extremity, chronic. Skin: No rashes, No breakdown Lymphatic: No Cervical, Supraclavicular, or Inguinal Adenopathy Neurological: Cranial nerves II-XII grossly intact, Motor Exam 5/5 strength throughout Psych/Mental Status: Normal Affect, Appropriate, Alert and oriented to time, place, person, mood and affect Laboratory data and chest x-ray as well as EKG performed at the outside facility. Laboratory data: CBC: Hemoglobin 7.4 g/dL, WBC 14.3, platelet count is 203,000. Pro time 14.3, INR 1.2. BMP: Blood glucose 112, sodium 134, potassium 3.9, bicarb is 30, BUN 51, creatinine 4.42. BNP 2394. Troponin 0 0.07 (normal is 0.00-0.03). ABG: pH 7.50, PCO2 34, PO2 70, bicarb 26. EKG: A. fib, rate is 87, no acute ischemic changes. Chest x-ray: Small bilateral pleural effusion, bilateral pulmonary vascular congestion with Ivy B-lines. I doubt acute infiltrate or pneumonia. Current Medications Acetaminophen (Tylenol) 650 mg PO Q6H PRN PRN PRN Reason: Pain Score 1-3/Temp > 100.7 F Albuterol Sulfate (Ventolin Aerosols) 2.5 mg INHALATION Q2H PRN PRN PRN Reason: SOB/Wheezing Albuterol/Ipratropium (Duoneb) 3 ml INHALATION Q4HWA.RT JAIME Amlodipine Besylate (Norvasc) 10 mg PO DAILY JAIME Heparin Sodium (Porcine) (Heparin Na) 5,000 unit SC Q12 JAIME Sodium Chloride () 250 mls @ 15 mls/hr IV .[id number] PRN PRN Reason: Saline Flush Sodium Chloride () 250 mls @ 15 mls/hr IV .[id number] PRN PRN Reason: Additional IVPB Infusion Metoprolol Succinate (Toprol Xl (Beta Kadi)) 50 mg PO BID [facility] Non-Formulary Medication (Alprazolam) 1 mg PO TID PRN PRN PRN Reason: ANXIETY Non-Formulary Medication (Omeprazole) 20 mg PO BID JAIME Non-Formulary Medication (Rosuvastatin Calcium [Crestor]) 40 mg PO QHS [facility] Nutritional Formula (Lactose Free) (Ensure Enlive) 120 ml PO 4X/DAY JAIME Ondansetron HCl (Zofran) 4 mg IV Q8H PRN PRN PRN Reason: NAUSEA/VOMITING Senna/Docusate Sodium (Senokot-S, Eveline-Colace) 2 tablet PO BID PRN PRN PRN Reason: Constipation Sodium Chloride () 10 - 40 ml IV UD PRN PRN Reason: SALINE FLUSH Tamsulosin HCl (Flomax) 0.4 mg PO DAILY [facility] Assessment/Plan This is a 69 years old male patient directly admitted from outside facility for worsening shortness of breath and right-sided chest pain and he was found to have acute on chronic hypoxic respiratory failure secondary to acute on chronic diastolic CHF in addition to acute on chronic anemia. #1 acute on chronic diastolic CHF: Based on symptoms, chest x-ray findings and elevated BNP. Chest x-ray and EKG reviewed as above. Patient mentioned that he has been doing his dialysis every day 5 days a week as prescribed. He does not make any urine. At this time, he is on BiPAP, vital signs are stable. He had 2D echocardiogram on October, that revealed ejection fraction 60%, mildly enlarged left atrium. Plan: Admit to PCU, cardiac monitoring, serial cardiac enzymes, continue BiPAP, nephrology consult, dialysis this morning, repeat CBC and BMP tomorrow morning, PT OT evaluation and treatment. #2 acute on chronic hypoxic respiratory failure: ABG reviewed as above. Currently is on BiPAP. He is on oxygen at home at 3 L. Plan: Dialysis this morning, continue BiPAP, chest physiotherapy, bronchodilators, incentive spirometer. #3 acute on chronic anemia: Baseline hemoglobin has been around 8 g/dL. Hemoglobin at the outside facility was 7.4 g/dL. Patient reported mild streaks of blood in his sputum, no significant hemoptysis. Denied any bleeding from other body orifices. Plan: Type and crossmatch 1 dose of packed RBCs, repeat CBC this morning, transfuse if hemoglobin remained below 8 g/dL. #4 CAD status post CABG and PCI: Patient complained of right chest pain. EKG without acute segment changes. Troponin was borderline elevated at the outside facility which is likely because of the ESRD. Plan for cardiac monitoring, serial cardiac enzymes, continue metoprolol and statins. #5 ESRD on hemodialysis: Nephrology consult, dialysis this morning. #6 chronic atrial fibrillation: Rate is controlled, blood pressure stable. Plan to continue metoprolol for rate control, patient is not on anticoagulation. #7 COPD: DuoNeb every 6 hours, albuterol PRN as above. #8 benign prostatic hypertrophy: Continue Flomax. #9 GERD: Continue omeprazole. #10 peripheral vascular disease: Stable. Patient status post right common iliac angioplasty and PCI, PVD history. He is not on aspirin because of history of GI bleed. Plan to continue statins. #12 DVT prophylaxis on subcu heparin. This note was generated with [employer] dictation software. It may contain incorrect words, spelling, and punctuation that were not noted in checking the note before signing. Code Visit Inpatient E&M: 51127 Init Hosp L3
[2019-11-14] MEDS: ALPRAZolam 0.5 MG Tablet 1 MG PO ×3 (01:24→23:09)
[2019-11-14 01:30] LABS: Absolute Lymphocyte Count 0.19 X10^3/uL (0.83-4.51); Absolute Neutrophil Count 11.8 X10^3/uL (2.0-7.7); Basophil# 0.01 X10^3/uL; Basophil% 0.1 % (0-1); Hematocrit 21.8 % (40-54); Hemoglobin 6.9 g/dL (13.0-16.5); Lymphocyte # 0.19 X10^3/ul (4.0); Lymphocyte % 1.5 % (19-41); Mean Corp Hgb Conc 31.7 g/dL (32-36); Mean Corpuscular Hgb 32.2 pg (27.0-32.0); Mean Corpuscular Volume 101.9 fL (80-94); Mean Platelet Vol. 10.4 fl (6.2-12.0); Monocyte# 0.12 X10^3/uL; NRBC Flagged by Analyzer 0 % (0-5); Neutrophil # 11.83 X10^3/uL (2.7-7.7); Neutrophil % 96.3 % (47-70); POSITIVE DIFFERENTIAL YES; POSITIVE MORPHOLOGY YES; Platelet Count 170 K/mm3 (150-450); RBC Distribution Width CV 16.1 % (11.6-14.6); RBC Distribution Width SD 59.9 fl (35.1-43.9); Red Blood Count 2.14 M/mm3 (4.6-6.2); White Blood Count 12.3 K/mm3 (4.4-11.0)
[2019-11-14 03:26] LABS: Differential Indicated SCAN CRITERIA MET
[2019-11-14 03:27] LABS: Differential Comment SCANNED
--- NOTE | 2019-11-14 05:55 | EKG12_ITS ---
Test Reason : AM EKG Blood Pressure : / mmHG Vent. Rate : 082 BPM Atrial Rate : 082 BPM P-R Int : 236 ms QRS Dur : 090 ms QT Int : 430 ms P-R-T Axes : -24 050 222 degrees QTc Int : 502 ms Sinus rhythm with 1st degree A-V block ST & T wave abnormality, consider inferolateral ischemia Prolonged QT Abnormal ECG When compared with ECG of 22-SEP-2019 15:18, [place] interval has increased T wave inversion now evident in Inferior leads T wave inversion now evident in Anterior leads Confirmed by SID REAGAN ([id number]), film and video editor ANGELA MTZ ([id number]) on 11/15/2019 10:43:47 AM Referred By: MARIOLA Confirmed By:SID REAGAN
--- NOTE | 2019-11-14 07:03 | CPS ---
Pts. recorded home BiPAP settings are 03/10. Pts. BiPAP settings on hospital unit were changed to these settings. aware of this change.
[2019-11-14] MEDS: Ipratropium/Albuterol Sulfate 3 ML AMPUL.NEB INHALATION ×4 (07:07→23:11)
[2019-11-14 07:42] LABS: International Normalized Ratio 1.2; Prothrombin Time (Protime)PT. 15.1 SECONDS (11.7-14.9)
[2019-11-14] MEDS: amLODIPine 10 MG Tablet PO (09:15)
[2019-11-14] MEDS: Heparin Injection (Vial) 5,000 UNIT/ML VIAL 5000 UNIT SC (09:15)
[2019-11-14] MEDS: Pantoprazole Sodium 20 MG Tablet PO ×2 (09:15→21:26)
[2019-11-14] MEDS: Metoprolol(XL)Succ 50 MG Tablet PO ×2 (09:15→21:26)
[2019-11-14] MEDS: Tamsulosin HCl 0.4 MG Capsule PO (09:15)
--- NOTE | 2019-11-14 10:12 | RAD_ITS ---
STUDY: X-RAY CHEST REASON FOR EXAM: Male, 69 years old. Sob TECHNIQUE: Single AP portable view of the chest. COMPARISON: Comparison is made with prior study dated September 22, 2019. FINDINGS: EKG electrodes are seen. Once again, there are small bilateral pleural effusions with bibasilar atelectasis and/or infiltration. This is unchanged. This is superimposed on CHF. Sternal cerclage wires and vascular clips are present from a prior sternotomy and coronary artery bypass graft procedure (CABG). Normal mediastinum and justyn. Normal visualized pulmonary arteries. There is atherosclerotic calcification of the aortic arch with tortuosity. There are diffuse degenerative changes of the visualized thoracic spine. Normal visualized ribs, clavicles, and shoulders. There is no demonstrated abnormality of the visualized soft tissue structures of the upper abdomen. RAD/Chest 1 View (Portable) IMPRESSION: Stable bilateral pleural effusions with underlying infiltration and/or atelectasis superimposed on CHF. Electronically Signed: Deven Hensley, at 13:52 EST , Service support ,
--- NOTE | 2019-11-14 10:27 | PN_ITS ---
Subjective: Patient seen and examined. He was admitted from [place] ED on account of worsening shortness of breath which has been going on for about 4 to 5 days prior to admission and gradually worsened. It was aggravated by exertion and relieved mildly by rest with associated mild productive cough. He did have streaks of blood in his sputum and had to increase his oxygen at home. He also had right-sided chest pain which was mainly pleuritic. Patient is on home dialysis 5 days a week and did dialysis the day before admission. He had recently been discharged from [facility] about a week prior to admission where he was admitted for shortness of breath. He required initiation of BiPAP at [facility] and labs done showed hemoglobin of 7.4 with creatinine of 4.42 and BNP of 2394. He has been managed for acute on chronic hypoxic respiratory failure due to acute on chronic heart failure preserved ejection fraction acute on chronic anemia. Patient seen this morning. He had BiPAP on at time of review. Complained of generalized cramping but denied any fever or chills, any chest pain or palpitation, any dizziness, any nausea vomiting or diarrhea. Review of symptoms otherwise negative. He is due for dialysis today Vitals/I&O's: Vital Signs Temp Pulse Resp BP Pulse Ox 98.4 F 85 18 127/59 H 96 11/14/19 09:17 11/14/19 09:17 11/14/19 09:17 11/14/19 09:17 11/14/19 09:17 Oxygen Flow Rate (L/min) 4 Oxygen Delivery Method Nasal Cannula Weight: 147 lb 4.301 oz Body Mass Index (BMI) 24.1 Finger Stick Blood Glucose 200 Intake and Output for Last 24 Hours 11/12/19 11/13/19 11/14/19 23:59 23:59 23:59 Intake Total 480 / 480 Balance 480 / 480 General: Alert, No apparent distress, Lethargic - and frail HEENT: Atraumatic, PERRLA, EOMI, Normocephalic Oral: Dry Mucosa Neck: Supple, No JVD, Negative Carotid Bruits Lungs: - - diminished breath sounds bibasally, no wheezes or crackles. on BIPAP at time of review Cardiovascular: Regular rate, Regular Rhythm, Normal S1, Normal S2, No murmurs Abdomen: Bowel Sounds Present, Soft, Non Tender, Non-Distended, No Hepato- splenomegaly Extremities: No clubbing, No cyanosis, No edema, Capillary Refill Less than 3 Seconds, - - AV fistula with good thrill in LUE Skin: No rashes, No breakdown Musculoskeletal: No Tenderness to Palpation of Joints or Extremities Lymphatic: No Cervical, Supraclavicular, or Inguinal Adenopathy Neurological: Cranial nerves II-XII grossly intact, Neuro grossly intact, Motor Exam 5/5 strength throughout Psych/Mental Status: Normal Affect, Appropriate, Alert and oriented to time, place, person, mood and affect Laboratory Results 11/14/19 01:20: Blood Type A NEGATIVE, Antibody Screen NEGATIVE, Crossmatch See Detail 11/14/19 01:20: WBC 12.3 H, RBC 2.14 L, Hgb 6.9 L, Hct 21.8 L, MCV 101.9 H, MCH 32.2 H, MCHC 31.7 L, RDW Std Deviation 59.9 H, RDW Coeff of Eleni 16.1 H, Plt Count 170, MPV 10.4, Immature Gran % (Auto) 1.100 H, Neut % (Auto) 96.3 H, Lymph % (Auto) 1.5 L, Kendall % (Auto) 1.0, Eos % (Auto) 0.0, Baso % (Auto) 0.1, Absolute Neuts (auto) 11.8 H, Absolute Lymphs (auto) 0.19 L, Nucleated RBC % 0, Differential Comment SCANNED 11/14/19 01:20: Sodium Pending, Potassium Pending, Chloride Pending, Carbon Dioxide Pending, Anion Gap Pending, BUN Pending, Creatinine Pending, Est GFR (MDRD) Af Amer Pending, Est GFR (MDRD) Non-Af Pending, BUN/Creatinine Ratio Pending, Glucose Pending, Calcium Pending 11/14/19 01:20: Troponin I 0.053 H 11/14/19 03:47: Troponin I 0.035 11/14/19 06:50: PT Cancelled, INR Cancelled 11/14/19 06:50: Troponin I 0.032 11/14/19 07:26: PT 15.1 H, INR 1.2 Current Medications Acetaminophen (Tylenol) 650 mg PO Q6H PRN PRN PRN Reason: Pain Score 1-3/Temp > 100.7 F Albuterol Sulfate (Ventolin Aerosols) 2.5 mg INHALATION Q2H PRN PRN PRN Reason: SOB/Wheezing Albuterol/Ipratropium (Duoneb) 3 ml INHALATION Q4HWA.RT [facility] Last Admin: 11/14/19 07:07 Dose: 3 ml Documented by: Alprazolam (Xanax) 1 mg PO TID PRN PRN PRN Reason: ANXIETY Last Admin: 11/14/19 01:24 Dose: 1 mg Documented by: Amlodipine Besylate (Norvasc) 10 mg PO DAILY [facility] Last Admin: 11/14/19 09:15 Dose: 10 mg Documented by: Atorvastatin Calcium (Lipitor) 80 mg PO QHS [facility] Heparin Sodium (Porcine) (Heparin Na) 5,000 unit SC Q12 [facility] Last Admin: 11/14/19 09:15 Dose: 5,000 unit Documented by: Sodium Chloride () 250 mls @ 15 mls/hr IV .[id number] PRN PRN Reason: Saline Flush Sodium Chloride () 250 mls @ 15 mls/hr IV .[id number] PRN PRN Reason: Additional IVPB Infusion Metoprolol Succinate (Toprol Xl (Beta Kadi)) 50 mg PO BID [facility] Last Admin: 11/14/19 09:15 Dose: 50 mg Documented by: Nutritional Formula (Lactose Free) (Ensure Enlive) 120 ml PO 4X/DAY [facility] Last Admin: 11/14/19 09:14 Dose: Not Given Documented by: Ondansetron HCl (Zofran) 4 mg IV Q8H PRN PRN PRN Reason: NAUSEA/VOMITING Pantoprazole Sodium (Protonix) 20 mg PO BID [facility] Last Admin: 11/14/19 09:15 Dose: 20 mg Documented by: Senna/Docusate Sodium (Senokot-S, Eveline-Colace) 2 tablet PO BID PRN PRN PRN Reason: Constipation Sodium Chloride () 10 - 40 ml IV UD PRN PRN Reason: SALINE FLUSH Tamsulosin HCl (Flomax) 0.4 mg PO DAILY [facility] Last Admin: 11/14/19 09:15 Dose: 0.4 mg Documented by: STROKE Vital Signs/Narrative: Vital Signs Temp Pulse Resp BP Pulse Ox 11/14/19 09:17 98.4 F 85 18 127/59 H 96 11/14/19 09:15 85 11/14/19 07:07 88 24 H 100 11/14/19 06:39 87 28 H 100 Medical Necessity - Tobacco Use Smoking Status: Former smoker Assessment/Plan 1. Acute on chronic hypoxic respiratory failure due to acute on chronic HFpEF * still on BIPAP. usually on 3L at home, but now requiring BIPAP * doesnt make any urine, so to have dialysis today * breathing treatments with bronchodilators * initial troponin was 0.053->0.035 nad 0.032 * 2D echo(11/04): EF of 60% with mildly enlarged left atrium * will get repeat 2D echo * 2. Acute on chronic HFpEF: as under 1 3. Acute on chronic anemia * Baseline hemoglobin is around 7-8 * Hemoglobin today 6.9. Hemoccult is pending. * Will check iron panel with ferritin. * This is likely due to his ESRD. Will check stool for occult blood. * Transfuse 1 unit of packed red blood cells today. * If He is iron deficient, will benefit from IV venofer * 4. ESRD: Does hemodialysis at home 5 days a week. Nephrology consulted. For dialysis today. 5. CAD status post CABG and PCI * On admission, he was complaining of some right-sided chest pain EKG showed no acute ST changes. Troponin was initially indeterminate but later trended down and this likely due to ESRD and him needing dialysis. * Sublingual nitroglycerin as needed. * 6. Chronic A. fib: Rate and rhythm controlled. On metoprolol. Not on any anticoagulation likely due to chronic anemia. 8. COPD: On breathing treatments with DuoNeb's. 9. Peripheral vascular disease: Status post right common iliac angioplasty and PCI. Not on aspirin on account of history of GI bleed. Continue statin. 10.GERD: on pantoprazole. DVT prophylaxis: will stop heparin o/a of anemia. SCDs Code Visit Inpatient E&M: 74765 Subs Hosp L3
--- NOTE | 2019-11-14 11:00 | CASEMGMT ---
RN CM assessment: Face to Face with patient for initial transition planning/care coordination assessment. RN CM introduced self and role at [facility], pt voices understanding and consents to assessment at this time. Pt is sitting up on side of bed at this time. Pt is A/Ox4 at this time and answers all questions appropriately at this time. Care providers, pharmacy, and demographics verified at this time. Presentation: Direct admit from [facility] for SOB/CP Admitting dx: Acute on chronic CHF/Acute resp failure PCP: Terra Berger Specialists: Corbin, nephro; James, cardio; Sascha pulnoemy Preferred Pharmacy: [facility]it[facility] Living Will/HPOA: Pt does not have LW but does have HPOA and HPOA is on file at [facility] at this time. Pt's , Heidy Dominguez, is HPOA. LNOK: Heidy Dominguez, ; Jennifer Martinez, daughter; Lester Dominguez, son Living Arrangements: Pt lives with in 1 story home with 2 steps in and states no concerns at home at this time. Pt states that has been assisting with ADL's. Transportation: Pt states has been driving and states no transportation concerns at this time. DME/HHC: Pt states has the following DME: cane, walker, scooter, nebulizer, bipap, and home oxygen 2 liters continuous thru [employer]. Pt states has been using 3 liters continuous oxygen at home prior to admission. CM to follow for increased need/qualification. Pt does HD at home 5 days/week with 's assist. states pt cannot go more than one day off with the HD at home so days are rotating every week. Pt states no hx of HHC or SNF in the past. This RN CM had discussed palliative care with pt/ during last visit in July 2019 and when brought up, pt/ both state interest in palliative referral at this time. states 'I have a lot of questions for them' and pt states 'I definitely need something else.' Pt/ state they would like [facility] palliative at this time. E.Mena SW aware, voices understanding. Pt states no concerns with going home at time of discharge at this time. Pt is retired. Pt states has not smoked 'in awhile' and pt states normally has 2 beers daily but has not had any in last 2 weeks. Pt states no further concerns/needs at this time. CM to follow for increased home oxygen need and for any further discharge planning/needs. Advised pt/ to ask for CM if any further questions/concerns/needs arise, voice understanding. Pt Goal: Home Plan: Home Chris ANDRADE CM
--- NOTE | 2019-11-14 11:32 | CASEMGMT ---
RN CM said patient and are in agreement with Palliative Care referral. SW called Palliative Care and made the referral as well as faxed over referral information. Elaine BARTH SOLAR INSTALLATION SUPERVISOR
[2019-11-14 11:45] LABS: Ferritin 865 ng/mL (26-388); Iron 32 ug/dL (65-175); Iron Binding Capacity,Total 302 ug/dL (250-450); PERCENT IRON SATURATION 10.6 % (15.0-55.0)
--- NOTE | 2019-11-14 11:45 | CASEMGMT ---
Healthcare POA with living will provision checked off is scanned into the summary tab of the echart. Heidy Hoffman is listed as pt's medical POA. FABIAN Momin
[2019-11-14 11:46] LABS: Anion Gap 10 (5-15); BUN 57 mg/dL (7-18); BUN/Creat Ratio 11.6 RATIO (10-20); Calcium,Total 8.8 mg/dL (8.5-10.1); Chloride 97 mmol/L (98-107); Creatinine, Serum 4.93 mg/dL (0.70-1.30); EST Glomerular Filtration Rate 13 mL/min (>60); Est Glom Filt Rate - Afr Amer 15 mL/min (>60); Estimated Creatinine Clearance 12.47 ml/min; Glucose 162 mg/dL (74-106); Potassium 4.2 mmol/L (3.5-5.1); Sodium Level 133 mmol/L (136-145)
--- NOTE | 2019-11-14 15:40 | CASEMGMT ---
Jane from Palliative Care called and she spoke with patient's . It was decided patient's will call Palliative to set up appt and if they don't hear from her they will call her on Tuesday. Elaine HOSKINS
--- NOTE | 2019-11-14 16:19 | PCM.CONS.R ---
Consultation - Renal 11/14/19 PCP/ Referring MD: Requesting physician: Dr. De La Cruz Primary care physician: SEUN Poe Reason for Consultation:: ESRD, dialysis management - History of Present Illness History of Present Illness: The patient is a 69 year old M with past history of ESRD who is followed by Dr. Alaniz as outpt. He is on home hemodialysis using [facility] machine. He dialyzes 5 days per week. He was last admitted to this hospital in 07/2019 with SOB which was thought to be duye to COPD exacerbation. The pt presents this time with a 5 days history of progressively worsening dyspnea. The pt is currently on NIV, so history is limited. He was last dialyzed at home on 11/12/19. He denies CP, nausea or increasing edema. CXR shows bilateral pleural effusion. - Allergies Allergies: Allergies irbesartan [From Avapro] Allergy (Severe, Verified 10/08/19 09:58) Blisters zolpidem [From Ambien] Adverse Reaction (Severe, Verified 10/08/19 09:58) made me go crazy, memory loss amoxicillin Adverse Reaction (Intermediate, Verified 10/08/19 09:58) PASSES BLOOD IN STOOL TOLERATES ZOSYN PASSES BLOOD IN STOOL metronidazole [From Flagyl] Adverse Reaction (Verified 10/08/19 09:58) pt states he got palpitations and nose bleed. pt states he got palpitations and nose bleed. - Current Medications Current Medications: Current Medications Acetaminophen (Tylenol) 650 mg PO Q6H PRN PRN PRN Reason: Pain Score 1-3/Temp > 100.7 F Albuterol Sulfate (Ventolin Aerosols) 2.5 mg INHALATION Q2H PRN PRN PRN Reason: SOB/Wheezing Albuterol/Ipratropium (Duoneb) 3 ml INHALATION Q4HWA.RT [facility] Last Admin: 11/14/19 15:25 Dose: 3 ml Documented by: Alprazolam (Xanax) 1 mg PO TID PRN PRN PRN Reason: ANXIETY Last Admin: 11/14/19 13:49 Dose: 1 mg Documented by: Amlodipine Besylate (Norvasc) 10 mg PO DAILY [facility] Last Admin: 11/14/19 09:15 Dose: 10 mg Documented by: Atorvastatin Calcium (Lipitor) 80 mg PO QHS [facility] Sodium Chloride () 250 mls @ 15 mls/hr IV .[id number] PRN PRN Reason: Saline Flush Sodium Chloride () 250 mls @ 15 mls/hr IV .[id number] PRN PRN Reason: Additional IVPB Infusion Metoprolol Succinate (Toprol Xl (Beta Kadi)) 50 mg PO BID [facility] Last Admin: 11/14/19 09:15 Dose: 50 mg Documented by: Ondansetron HCl (Zofran) 4 mg IV Q8H PRN PRN PRN Reason: NAUSEA/VOMITING Pantoprazole Sodium (Protonix) 20 mg PO BID [facility] Last Admin: 11/14/19 09:15 Dose: 20 mg Documented by: Senna/Docusate Sodium (Senokot-S, Eveline-Colace) 2 tablet PO BID PRN PRN PRN Reason: Constipation Sodium Chloride () 10 - 40 ml IV UD PRN PRN Reason: SALINE FLUSH Tamsulosin HCl (Flomax) 0.4 mg PO DAILY [facility] Last Admin: 11/14/19 09:15 Dose: 0.4 mg Documented by: - Past Medical History Past Medical History (Chronic Problems): Chronic Problems (Last Updated 11/14/19 @ 01:04 by Amadou Shane MD) Chronic atrial fibrillation (Chronic) Problem with dialysis access (Chronic) RAVEN (obstructive sleep apnea) (Chronic) AHI 426. ESRD (end stage renal disease) (Chronic) History of non-ST elevation myocardial infarction (NSTEMI) (Chronic 01/21/11) Stented coronary artery (Chronic) 2003, JASON to circumflex ; 10/13/[address] [facility] to [facility], total of 5 bare metal stents to RCA per Dr. Barrientos @ [facility]: 3.5 X 18 Auction Clerk, followed distally by 3.0 X12 Auction Clerk to distal RCA;3.5 X 15 Auction Clerk, followed proximally by 4.0 X 18 Auction Clerk to Mid RCA; 4.0 X 18 Auction Clerk to Proximal RCA S/P CABG x 3 (Chronic 01/26/11) [facility] per Dr. Osito Hernandez: NICHOLAS to LAD, reverse SVG to OMbranch of CX, reverse SVG to PDA of RCA. PDA endarterectomy. Status post peripheral artery angioplasty with insertion of stent (Chronic ~2010) Right common iliac, [facility] Atherosclerotic heart disease of [place] coronary artery without angina pectoris (Chronic) 2004, JASON to circumflex ; 10/10/[address] [facility] to [facility], total of 5 bare metal stents to RCA; CABG X 3 vessels @ [facility] 01/31/2011 (critical left main and restenosis of RCA stents) Diastolic CHF (Chronic) HLD (hyperlipidemia) (Chronic) HTN (hypertension) (Chronic) PAD (peripheral artery disease) (Chronic) COPD (chronic obstructive pulmonary disease) (Chronic) Tobacco dependence (Chronic) Anemia (Chronic) BPH (benign prostatic hyperplasia) (Chronic) - Past Surgical History Surgical History: coronary bypass surgery, tonsillectomy, - - CABG x3, multiple PCI coronary arteries, right common iliac angioplasty and stenting, aVF, tonsillectomy, multiple endoscopies with intervention. - Social History Smoking Status: Former smoker - Family History Maternal Family History: Family History (Last Reviewed 09/19/19 @ 10:22 by Judith Powell) Father CAD (coronary artery disease) Hypertension Kidney disease CVA (cerebral vascular accident) Other Cancer History Items: Heart Disease Paternal Family History: Family History (Last Reviewed 09/19/19 @ 10:22 by Judith Powell) Father CAD (coronary artery disease) Hypertension Kidney disease CVA (cerebral vascular accident) Other Cancer History Items: Heart Disease, Hypertension, Renal Disease Review of Systems Unable to obtain accurate/complete ROS d/t: the patient is on NIV (biPAP). Chart reviewed. - Physical Exam Vitals/I&O's: Vital Signs Temp Pulse Resp BP Pulse Ox 98.1 F 71 20 H 129/76 H 97 11/14/19 15:15 11/14/19 15:56 11/14/19 15:15 11/14/19 15:15 11/14/19 15:15 Oxygen Flow Rate (L/min) 4 Oxygen Delivery Method Bi-pap Weight: 66.8 kg Body Mass Index (BMI) 24.1 Finger Stick Blood Glucose 200 Intake and Output for Last 24 Hours 11/12/19 11/13/19 11/14/19 23:59 23:59 23:59 Intake Total 960 / 960 Output Total 200 / 200 Balance 760 / 760 General: Confused, Lethargic HEENT: Atraumatic, PERRLA, - - on BiPAP Oral: Moist Mucosa Neck: Supple Lungs: Rhonchi, Short of Breath Cardiovascular: Normal S1, Normal S2, No murmurs Abdomen: Bowel Sounds Present, Soft, Non Tender Extremities: No clubbing, No edema Skin: No rashes Laboratory Results 11/14/19 01:20: Blood Type A NEGATIVE, Antibody Screen NEGATIVE, Crossmatch See Detail 11/14/19 01:20: WBC 12.3 H, RBC 2.14 L, Hgb 6.9 L, Hct 21.8 L, MCV 101.9 H, MCH 32.2 H, MCHC 31.7 L, RDW Std Deviation 59.9 H, RDW Coeff of Eleni 16.1 H, Plt Count 170, MPV 10.4, Immature Gran % (Auto) 1.100 H, Neut % (Auto) 96.3 H, Lymph % (Auto) 1.5 L, Payne % (Auto) 1.0, Eos % (Auto) 0.0, Baso % (Auto) 0.1, Absolute Neuts (auto) 11.8 H, Absolute Lymphs (auto) 0.19 L, Nucleated RBC % 0, Differential Comment SCANNED 11/14/19 01:20: Sodium 133 L, Potassium 4.2, Chloride 97 L, Carbon Dioxide 26.0, Anion Gap 10, BUN 57 H, Creatinine 4.93 H, Estim Creat Clear Calc 12.47, Est GFR (MDRD) Af Amer 15 L, Est GFR (MDRD) Non-Af 13 L, BUN/Creatinine Ratio 11.6, Glucose 162 H, Calcium 8.8 11/14/19 01:20: Troponin I 0.053 H 11/14/19 03:47: Troponin I 0.035 11/14/19 06:50: PT Cancelled, INR Cancelled 11/14/19 06:50: Troponin I 0.032 11/14/19 06:50: Iron 32 L, TIBC 302, Iron Saturation 10.6 L, Ferritin 865 H 11/14/19 07:26: PT 15.1 H, INR 1.2 Current Medications Acetaminophen (Tylenol) 650 mg PO Q6H PRN PRN PRN Reason: Pain Score 1-3/Temp > 100.7 F Albuterol Sulfate (Ventolin Aerosols) 2.5 mg INHALATION Q2H PRN PRN PRN Reason: SOB/Wheezing Albuterol/Ipratropium (Duoneb) 3 ml INHALATION Q4HWA.RT [facility] Last Admin: 11/14/19 15:25 Dose: 3 ml Documented by: Alprazolam (Xanax) 1 mg PO TID PRN PRN PRN Reason: ANXIETY Last Admin: 11/14/19 13:49 Dose: 1 mg Documented by: Amlodipine Besylate (Norvasc) 10 mg PO DAILY [facility] Last Admin: 11/14/19 09:15 Dose: 10 mg Documented by: Atorvastatin Calcium (Lipitor) 80 mg PO QHS [facility] Sodium Chloride () 250 mls @ 15 mls/hr IV .[id number] PRN PRN Reason: Saline Flush Sodium Chloride () 250 mls @ 15 mls/hr IV .[id number] PRN PRN Reason: Additional IVPB Infusion Metoprolol Succinate (Toprol Xl (Beta Kadi)) 50 mg PO BID [facility] Last Admin: 11/14/19 09:15 Dose: 50 mg Documented by: Ondansetron HCl (Zofran) 4 mg IV Q8H PRN PRN PRN Reason: NAUSEA/VOMITING Pantoprazole Sodium (Protonix) 20 mg PO BID [facility] Last Admin: 11/14/19 09:15 Dose: 20 mg Documented by: Senna/Docusate Sodium (Senokot-S, Eveline-Colace) 2 tablet PO BID PRN PRN PRN Reason: Constipation Sodium Chloride () 10 - 40 ml IV UD PRN PRN Reason: SALINE FLUSH Tamsulosin HCl (Flomax) 0.4 mg PO DAILY [facility] Last Admin: 11/14/19 09:15 Dose: 0.4 mg Documented by: Assessment/Plan 1. ESRD, HD 5 days a week at home. Will dialyze today. Pt can only tolerate 2 L UF per his . Therefore, I will likely ultrafilter him again tomorrow. I supervised and saw the pt during HD today: 3.5 hrs treatement using F160 dialyzer. Use 3 K dialysate. Will check labs in am. 2. Dyspnea. Has a history of COPD. Also has history of HFpEF. He has BL pleural effusion. Will UF 2 L today. He cannot toerate more than 2 L of fluid removal per day per . Will UF again tomorrow. May benefit from thoracentesis as well if effusion is not loculated-will defer to hospitalist. 3. HTN. BP is acceptable. Pt is on amlodipine. 4. Anemia. No obvious history of acute blood loss. To get PRBC today with dialysis. Will check with outpt dialysis unit to see if pt has been on RITCHIE at home.
--- NOTE | 2019-11-14 18:45 | NURSING ---
pt called out asking to order dinner. this RN advised pt it is too late to order from cafeteria. this RN offered a variety of foods from this kitchen. pt refused all options
--- NOTE | 2019-11-14 20:41 | DIALYSIS ---
Pt tolerated 3hr HD tx fairly well. Rec'd 1 unit PRBC during tx. Some cramping in left lower leg noted last 15mins of tx. Net UF -2200ml. See flow record for tx data.
[2019-11-14] MEDS: Atorvastatin Calcium 80 MG Tablet PO (21:26)
[2019-11-15] VITALS (27 sets, daily range): BP systolic 112–124; BP diastolic 47–70; PULSE 68–97; RESP 12–28; TEMP 36.6–37.2; O2SAT 86–99
[2019-11-15] MEDS: cycloBENZAPRine HCl 10 MG Tablet 5 MG PO (03:34)
[2019-11-15] MEDS: Acetaminophen 325 MG Tablet 650 MG PO (04:20)
[2019-11-15 06:04] LABS: Absolute Lymphocyte Count 0.42 X10^3/uL (0.83-4.51); Absolute Neutrophil Count 10.4 X10^3/uL (2.0-7.7); Basophil# 0.01 X10^3/uL; Basophil% 0.1 % (0-1); Eosinophil# 0.01 X10^3/uL; Eosinophils% 0.1 % (0-5); Hematocrit 23.5 % (40-54); Hemoglobin 7.4 g/dL (13.0-16.5); Lymphocyte # 0.42 X10^3/ul (4.0); Lymphocyte % 3.3 % (19-41); Mean Corp Hgb Conc 31.5 g/dL (32-36); Mean Corpuscular Hgb 31.9 pg (27.0-32.0); Mean Corpuscular Volume 101.3 fL (80-94); Mean Platelet Vol. 11.3 fl (6.2-12.0); Monocyte# 1.78 X10^3/uL; Monocyte% 13.9 % (0-10); NRBC Flagged by Analyzer 0 % (0-5); Neutrophil # 10.43 X10^3/uL (2.7-7.7); Neutrophil % 81.7 % (47-70); POSITIVE COUNT YES; POSITIVE DIFFERENTIAL YES; Platelet Count 138 K/mm3 (150-450); RBC Distribution Width CV 17.1 % (11.6-14.6); RBC Distribution Width SD 62.9 fl (35.1-43.9); Red Blood Count 2.32 M/mm3 (4.6-6.2); White Blood Count 12.8 K/mm3 (4.4-11.0)
[2019-11-15 06:25] LABS: Differential Indicated SCAN CRITERIA MET
[2019-11-15 06:36] LABS: Albumin, Serum 2.6 g/dL (3.2-5.0); BUN 44 mg/dL (7-18); BUN/Creat Ratio 11.4 RATIO (10-20); Calcium,Total 8.5 mg/dL (8.5-10.1); Chloride 101 mmol/L (98-107); Creatinine, Serum 3.85 mg/dL (0.70-1.30); EST Glomerular Filtration Rate 17 mL/min (>60); Est Glom Filt Rate - Afr Amer 20 mL/min (>60); Estimated Creatinine Clearance 15.97 ml/min; Glucose 110 mg/dL (74-106); Phosphorus 3.2 mg/dL (2.5-4.9); Potassium 4.8 mmol/L (3.5-5.1); Sodium Level 136 mmol/L (136-145)
[2019-11-15] MEDS: Ipratropium/Albuterol Sulfate 3 ML AMPUL.NEB INHALATION ×5 (07:21→22:50)
[2019-11-15] MEDS: Metoprolol(XL)Succ 50 MG Tablet PO ×2 (08:07→22:33)
[2019-11-15] MEDS: Pantoprazole Sodium 20 MG Tablet PO ×2 (08:07→22:33)
[2019-11-15] MEDS: amLODIPine 10 MG Tablet PO (08:07)
[2019-11-15] MEDS: Tamsulosin HCl 0.4 MG Capsule PO (08:07)
--- NOTE | 2019-11-15 12:00 | CT_ITS ---
STUDY: CT CHEST WITHOUT CONTRAST REASON FOR EXAM: Male, 69 years old. SHORTNESS OF BREATH, RESP FAILURE, CHF, CAD, CABG, COPD, CKD-STAGE 3 ON DIALYSIS, SMOKER RADIATION DOSAGE (If Supplied By Facility): CTDIvol = ( 13.66 ) mGy, DLP = ( 505. ) mGycm TECHNIQUE: Transaxial imaging was performed without the administration of intravenous contrast material. Multiplanar coronal and sagittal images were reformatted. Individualized dose optimization techniques were used for this CT. COMPARISON: Comparison is made with prior examination dated December 18, 2018 and prior chest radiograph dated November 14, 2019. FINDINGS: Moderate size bilateral pleural effusions with underlying compressive atelectasis and/or infiltrates. There is evidence of a diffuse groundglass appearance with multiple cystic changes seen in both lungs. This is worse in the upper lobes. Sternal cerclage wires and vascular clips are present from a prior sternotomy and coronary artery bypass graft procedure (CABG). There are calcifications of the coronary arteries. Cardiomegaly. Mildly enlarged mediastinal lymph nodes. Normal hilar regions. Normal unenhanced pulmonary arteries. There is atherosclerotic calcification of the aortic arch with tortuosity and elongation of the aortic arch and descending thoracic aorta. A vascular stent is seen in the proximal portion of the left subclavian artery. There are multi-level degenerative changes of the thoracic spine. There is no demonstrated abnormality of the visualized upper abdomen. CT/Chest without Contrast IMPRESSION: Moderate size bilateral pleural effusions with bibasilar atelectasis and/or infiltration superimposed on diffuse groundglass appearance with there are multiple small cystic changes worse in the upper lobes. Mildly enlarged mediastinal lymph nodes. Electronically Signed: Deven Hensley, at 13:31 EST , Service support ,
--- NOTE | 2019-11-15 12:36 | PCM.PN.HOSP ---
Subjective: Patient seen and examined. He was on BIPAP and drowsy. He denied any fever, chills, cough, chest pain, palpitations, dizziness, nausea or vomiting. Review of systems was otherwise negative. I had a long discussion with his who was concerned because she felt he needed fluid taken off his lungs to help with his shortness of breath. Patient's stated that he had recently been admitted at [facility] on account of some shortness of breath which required several sessions of dialysis. She states he does not use BiPAP at home and has been using it daily as well as having dialysis daily at home. She feels that he was dried out too much at [place] with the nursing as he gets home he gets short of breath again and is wondering if there other alternative pathologies that could explain his episodic shortness of breath. I did grief counselor that patient has acute on chronic diastolic heart failure but since he cannot make urine, the only means of getting fluid off of him is through dialysis. I again counseled her that chest x-ray showed small bilateral pleural effusions which are not enough to warrant thoracentesis. Labs and vitals reviewed. WBC is up to 12.8 today and hemoglobin is 7.4. He did receive 1 unit of packed red blood cells with dialysis. Vitals/I&O's: Vital Signs Temp Pulse Resp BP Pulse Ox 98.0 F 73 20 H 112/51 L 95 11/15/19 08:05 11/15/19 11:36 11/15/19 11:36 11/15/19 08:05 11/15/19 11:36 Oxygen Flow Rate (L/min) 3 Oxygen Delivery Method Bi-pap Weight: 151 lb 7.321 oz Body Mass Index (BMI) 24.1 Finger Stick Blood Glucose 200 Intake and Output for Last 24 Hours 11/13/19 11/14/19 11/15/19 23:59 23:59 23:59 Intake Total 2170 / 2170 500 / 500 Output Total 2800 / 2800 Balance -630 / -630 500 / 500 General: Alert, No apparent distress, Lethargic - and frail HEENT: Atraumatic, PERRLA, EOMI, Normocephalic Oral: Dry Mucosa Neck: Supple, No JVD, Negative Carotid Bruits Lungs: - - diminished breath sounds bibasally, no wheezes or crackles. on BIPAP Cardiovascular: Regular rate, Regular Rhythm, Normal S1, Normal S2, No murmurs Abdomen: Bowel Sounds Present, Soft, Non Tender, Non-Distended, No Hepato-splenomegaly Extremities: No clubbing, No cyanosis, No edema, Capillary Refill Less than 3 Seconds, - - AV fistula with good thrill in LUE Skin: No rashes, No breakdown Musculoskeletal: No Tenderness to Palpation of Joints or Extremities Lymphatic: No Cervical, Supraclavicular, or Inguinal Adenopathy Neurological: Cranial nerves II-XII grossly intact, Neuro grossly intact, Motor Exam 5/5 strength throughout Psych/Mental Status: lethargic, Alert and oriented to time, place, person, mood and affect Laboratory Results 11/14/19 01:20: Blood Type A NEGATIVE, Antibody Screen NEGATIVE, Crossmatch See Detail 11/15/19 05:47: WBC 12.8 H, RBC 2.32 L, Hgb 7.4 L, Hct 23.5 L, MCV 101.3 H, MCH 31.9, MCHC 31.5 L, RDW Std Deviation 62.9 H, RDW Coeff of Eleni 17.1 H, Plt Count 138 L, MPV 11.3, Immature Gran % (Auto) 0.900, Neut % (Auto) 81.7 H, Lymph % (Auto) 3.3 L, [place] % (Auto) 13.9 H, Eos % (Auto) 0.1, Baso % (Auto) 0.1, Absolute Neuts (auto) 10.4 H, Absolute Lymphs (auto) 0.42 L, Nucleated RBC % 0, Differential Comment , Diff Path Review February11/15/19 05:47: Sodium 136, Potassium 4.8, Chloride 101, Carbon Dioxide 27.0, BUN 44 H, Creatinine 3.85 H, Estim Creat Clear Calc 15.97, Est GFR (MDRD) Af Amer 20 L, Est GFR (MDRD) Non-Af 17 L, BUN/Creatinine Ratio 11.4, Glucose 110 H, Calcium 8.5, Phosphorus 3.2, Albumin 2.6 L Current Medications Acetaminophen (Tylenol) 650 mg PO Q6H PRN PRN PRN Reason: Pain Score 1-3/Temp > 100.7 F Last Admin: 11/15/19 04:20 Dose: 650 mg Documented by: Albuterol Sulfate (Ventolin Aerosols) 2.5 mg INHALATION Q2H PRN PRN PRN Reason: SOB/Wheezing Albuterol/Ipratropium (Duoneb) 3 ml INHALATION Q4HWA.RT [facility] Last Admin: 11/15/19 10:49 Dose: 3 ml Documented by: Alprazolam (Xanax) 1 mg PO TID PRN PRN PRN Reason: ANXIETY Last Admin: 11/14/19 23:09 Dose: 1 mg Documented by: Amlodipine Besylate (Norvasc) 10 mg PO DAILY [facility] Last Admin: 11/15/19 08:07 Dose: 10 mg Documented by: Atorvastatin Calcium (Lipitor) 80 mg PO QHS [facility] Last Admin: 11/14/19 21:26 Dose: 80 mg Documented by: Sodium Chloride () 250 mls @ 15 mls/hr IV .[id number] PRN PRN Reason: Saline Flush Sodium Chloride () 250 mls @ 15 mls/hr IV .[id number] PRN PRN Reason: Additional IVPB Infusion Metoprolol Succinate (Toprol Xl (Beta Kadi)) 50 mg PO BID [facility] Last Admin: 11/15/19 08:07 Dose: 50 mg Documented by: Ondansetron HCl (Zofran) 4 mg IV Q8H PRN PRN PRN Reason: NAUSEA/VOMITING Pantoprazole Sodium (Protonix) 20 mg PO BID [facility] Last Admin: 11/15/19 08:07 Dose: 20 mg Documented by: Senna/Docusate Sodium (Senokot-S, Eveline-Colace) 2 tablet PO BID PRN PRN PRN Reason: Constipation Sodium Chloride () 10 - 40 ml IV UD PRN PRN Reason: SALINE FLUSH Tamsulosin HCl (Flomax) 0.4 mg PO DAILY [facility] Last Admin: 11/15/19 08:07 Dose: 0.4 mg Documented by: STROKE Vital Signs/Narrative: Vital Signs Pulse Resp Pulse Ox 11/15/19 11:36 73 20 H 95 11/15/19 10:50 77 20 H Medical Necessity - Tobacco Use Smoking Status: Former smoker Assessment/Plan 1. Acute on chronic hypoxic respiratory failure due to acute on chronic HFpEF still on BIPAP. usually requires BIPAP prn at home, but he has required BIPAP constantly since admission, which is unusual had dialysis yesterday, with removal of 2.8L \patient however still remains on BIPAP breathing treatments with bronchodilators initial troponin was 0.053->0.035 nad 0.032 2D echo(11/04): EF of 60% with mildly enlarged left atrium will get repeat 2D echo since patient remains so short of breath, I think it is reasonable to get a Chest CT without contrast to evaluate the pleural effusion visualised on CXR. If it is a large effusion, may benefit from thoracentesis. consult pulmonology 2. Acute on chronic HFpEF: as under 1 3. Acute on chronic anemia s/p transfusion of one unit of PRBC Hb today is 7.4 iron panel showed iron of 32, with iron saturation of 10.6, and ferritin of 865, indicating that this is an anemia of chronic disease stool for occult blood is pending Baseline hemoglobin is around 7-8 likely due to his ESRD 4. ESRD: Does hemodialysis at home 5 days a week. Nephrology consulted. For dialysis today. 5. CAD status post CABG and PCI aspirin currently on hold o/a of acute on chronic anemia on statin and metoprolol Sublingual nitroglycerin as needed. 6. Chronic A. fib: Rate and rhythm controlled. On metoprolol. Not on any anticoagulation likely due to chronic anemia. 7. COPD: On breathing treatments with DuoNeb's. 8. Peripheral vascular disease: Status post right common iliac angioplasty and PCI. Not on aspirin on account of history of GI bleed. Continue statin. 10.GERD: on pantoprazole. DVT prophylaxis: SCDs 1:33pm: per discussion with patient's nurse, is refusing to allow patient to have dialysis, and called the dialysis center herself, telling them not to come, because she feels patient needs a break from dialysis today. Code Visit Inpatient E&M: 38441 Subs Hosp L3
--- NOTE | 2019-11-15 13:07 | ECHOD_ITS ---
Reason For Study: Acute on chronic heart failure Procedure This was a 2D Doppler, Color Flow transthoracic echocardiogram. Exam performed portable in patient room. Left Ventricle Normal LV size. The estimated ejection fraction is 55 %. There is evidence of diastolic dysfunction. No regional wall motion abnormalities noted. Right Ventricle Normal RV size. Normal systolic function. Atria The left atrium is mildly enlarged. Normal right atrium. No doppler evidence for ASD. Mitral Valve There is no mitral valve stenosis. Mild (1+) mitral valve insufficiency. Tricuspid Valve There is no tricuspid stenosis. Trivial tricuspid valve insufficiency. Unable to estimate RV systolic pressure due to insufficient tricuspid regurgitant envelope. Aortic Valve Trisinus/trileaflet aortic valve. There is no aortic stenosis. Trivial aortic valve insufficiency. Pulmonic Valve There is no pulmonic valvular stenosis. Trivial pulmonic valve insufficiency. Great Vessels Normal aortic root. Pericardium/Pleural No pericardial effusion. Large left pleural effusion. MMode/2D Measurements & Calculations LVIDd: 4.8 cm IVSd: 1.2 cm Ao root diam: 3.0 cm LVIDs: 3.6 cm LVPWd: 1.1 cm RVDd: 3.8 cm FS: 24.8 % LAV(MOD-bp): 85.1 ml LVAd ap4: 29.0 cm2 SV(MOD-sp4): 52.1 ml LAV(MOD-bp) Indexed: 48.5 ml/m2 EDV(MOD-sp4): 91.8 ml LAV(MOD-sp2): 76.8 ml EDV(sp4-el): 95.8 ml LAV(MOD-sp4): 86.5 ml LVAs ap4: 17.6 cm2 ESV(MOD-sp4): 39.7 ml ESV(sp4-el): 41.1 ml EF(MOD-sp4): 56.7 % EF(sp4-el): 57.1 % SV(sp4-el): 54.7 ml LA A4 area: 25.2 cm2 LA dimension(2D): 4.6 cm RA A4 area: 12.5 cm2 Doppler Measurements & Calculations MV E max grabiel: 125.3 cm/sec Lat Peak E' Grabiel: 6.6 cm/sec Med Peak E' Grabiel: 5.6 cm/sec MV A max grabiel: 39.3 cm/sec E/E' lat: 19.0 E/E' med: 22.3 MV E/A: 3.2 Ao V2 max: 110.2 cm/sec LV V1 max: 79.8 cm/sec PA V2 max: 121.9 cm/sec Ao max P.9 mmHg LV V1 max P.5 mmHg Ao V2 mean: 79.0 cm/sec Ao mean P.7 mmHg Ao V2 VTI: 23.9 cm PI end-d grabiel: 170.4 cm/sec TR max grabiel: 278.8 cm/sec TR max P.1 mmHg Interpretation Summary The estimated ejection fraction is 55 %. There is evidence of diastolic dysfunction. Mild (1+) mitral valve insufficiency. Trivial tricuspid valve insufficiency. Trivial aortic valve insufficiency. Large left pleural effusion. Ordering Physician: Sharon De La Cruz Referring Physician: Tania Berger Performed By: Maritza Joshi, RDCS, RVT
[2019-11-15 13:12] LABS: Pathologist Review Reviewed
--- NOTE | 2019-11-15 13:52 | CPS ---
PT PLACED ON 50% VENTI MASK DURING CT SCAN. PT TK MASK WELL. PT WAS PLACED BACK ON BIPAP POST CT
--- NOTE | 2019-11-15 14:03 | CON.PCM_ITS ---
Reason for Consult Date of Consultation: 11/15/19 Reason for Consultation: Acute on chronic respiratory failure History of Present Illness: The patient is a 69-year-old male, with a history as outlined below, who presented to the hospital as a direct admission on November 13 with shortness of breath. The patient has a known history of severe obstructive lung disease, chronic hypoxemic respiratory failure, obstructive sleep apnea and history of gastrointestinal bleed. In addition, the patient has end-stage renal disease and is currently on home dialysis 5 times per week. The patient is already on maximum therapy from an inhaler perspective for his underlying lung disease. Discussions have been undertaken in the past through the pulmonary medicine clinic with regards to referral to palliative care medicine. However, in the past, the patient has been resistant to this idea. The patient's last sleep study from July 2019 revealed the need for nocturnal bilevel pressure support with a setting of 18/12 centimeters of water. On presentation to the hospital, the patient was noted to be afebrile and tachypneic. Initial laboratory evaluation revealed a mildly elevated white blood cell count with a hemoglobin of 6.9. INR was noted to be 1.2. Troponin was negative. Plain film chest x-ray revealed bilateral pleural effusions. The patient was initially medically managed in the progressive care unit with ultrafiltration to facilitate volume removal over concerns for acute d ecompensated diastolic heart failure. The patient also received 1 unit of packed red blood cells with dialysis due to his anemia. Although there were tentative plans to perform ultrafiltration again today, the patient's refused to allow the treatment, noting that she felt the patient was in fact dehydrated. A CT chest without contrast was obtained and revealed moderate sized bilateral pleural effusions with superimposed groundglass changes bilaterally. The patient is currently on BiPAP therapy. Past Medical History Past Medical History (Chronic Problems): Chronic Problems (Last Updated 11/14/19 @ 01:04 by Amadou Shane MD) Chronic atrial fibrillation (Chronic) Problem with dialysis access (Chronic) RAVEN (obstructive sleep apnea) (Chronic) AHI 426. ESRD (end stage renal disease) (Chronic) History of non-ST elevation myocardial infarction (NSTEMI) (Chronic 01/21/11) Stented coronary artery (Chronic) 2003, JASON to circumflex ; 10/13/[address] [facility] to [facility] [place], total of 5 bare metal stents to RCA per Dr. Barrientos @ [facility]: 3.5 X 18 Supervisor Cd Area, followed distally by 3.0 X12 Supervisor Cd Area to distal RCA;3.5 X 15 Supervisor Cd Area, followed proximally by 4.0 X 18 Supervisor Cd Area to Mid RCA; 4.0 X 18 Supervisor Cd Area to Proximal RCA S/P CABG x 3 (Chronic 01/26/11) [facility] per Dr. Osito Hernandez: NICHOLAS to LAD, reverse SVG to OMbranch of CX, reverse SVG to PDA of RCA. PDA endarterectomy. Status post peripheral artery angioplasty with insertion of stent (Chronic ~2010) Right common iliac, [facility] Atherosclerotic heart disease of [place] coronary artery without angina pectoris (Chronic) 2004, JASON to circumflex ; 10/10/[address] [facility] to [facility] [place], total of 5 bare metal stents to RCA; CABG X 3 vessels @ [facility] 01/31/2011 (critical left main and restenosis of RCA stents) Diastolic CHF (Chronic) HLD (hyperlipidemia) (Chronic) HTN (hypertension) (Chronic) PAD (peripheral artery disease) (Chronic) COPD (chronic obstructive pulmonary disease) (Chronic) Tobacco dependence (Chronic) Anemia (Chronic) BPH (benign prostatic hyperplasia) (Chronic) Medical History: Medical History (Last Updated 11/14/19 @ 01:04 by Amadou Shane MD) ESRD (end stage renal disease) (Chronic) N18.6 History of non-ST elevation myocardial infarction (NSTEMI) (Chronic) Onset Date: 01/21/11 I25.2 Atherosclerotic heart disease of [place] coronary artery without angina pectoris (Chronic) I25.10 2004, JASON to circumflex ; 10/10/[address] [facility] to [facility] [place], total of 5 bare metal stents to RCA; CABG X 3 vessels @ [facility] 01/31/2011 (critical left main and restenosis of RCA stents) Diastolic CHF (Chronic) I50.30 HLD (hyperlipidemia) (Chronic) E78.5 HTN (hypertension) (Chronic) I10 PAD (peripheral artery disease) (Chronic) I73.9 COPD (chronic obstructive pulmonary disease) (Chronic) J44.9 Tobacco dependence (Chronic) F17.200 Anemia (Chronic) D64.9 BPH (benign prostatic hyperplasia) (Chronic) N40.0 Allergies irbesartan [From Avapro] Allergy (Severe, Verified 10/08/19 09:58) Blisters zolpidem [From Ambien] Adverse Reaction (Severe, Verified 10/08/19 09:58) made me go crazy, memory loss amoxicillin Adverse Reaction (Intermediate, Verified 10/08/19 09:58) PASSES BLOOD IN STOOL TOLERATES ZOSYN PASSES BLOOD IN STOOL metronidazole [From Flagyl] Adverse Reaction (Verified 10/08/19 09:58) pt states he got palpitations and nose bleed. pt states he got palpitations and nose bleed. Home Medications: Ambulatory Orders Medication Instructions Recorded Albuterol Aerosols [Ventolin 1 inh INHALATION Q4H PRN PRN 07/23/19 Aerosols] Budesonide Aerosol [Pulmicort 1 inh INHALATION BID 07/23/19 Respules] Formoterol Fumarate [Perforomist] 20 mcg INHALATION BID 07/23/19 Ipratropium/Albuterol Sulfate 1 inh INHALATION Q4H PRN PRN 07/23/19 [Iprat-Albut 0.5-3(2.5) mg/3 ml] Omeprazole 40 mg PO BID 07/23/19 Rosuvastatin Calcium [Crestor] 40 mg PO QHS 07/23/19 Tamsulosin HCl [Flomax] 0.8 mg PO DAILY 07/23/19 Metoprolol Succinate [Toprol Xl] 50 mg PO BID 08/08/19 Amlodipine [Norvasc] 10 mg PO DAILY 11/14/19 Surgical History: Surgical History (Last Reviewed 09/19/19 @ 10:22 by Judith Powell) Stented coronary artery (Chronic) Z95.5 2003, JASON to circumflex ; 10/13/[address] [facility] to [facility] [place], total of 5 bare metal stents to RCA per Dr. Barrientos @ [facility]: 3.5 X 18 Supervisor Cd Area, followed distally by 3.0 X12 Supervisor Cd Area to distal RCA;3.5 X 15 Supervisor Cd Area, followed proximally by 4.0 X 18 Supervisor Cd Area to Mid RCA; 4.0 X 18 Supervisor Cd Area to Proximal RCA S/P CABG x 3 (Chronic) Onset Date: 01/26/11 Z95.1 [facility] per Dr. Osito Hernandez: NICHOLAS to LAD, reverse SVG to OMbranch of CX, reverse SVG to PDA of RCA. PDA endarterectomy. Status post peripheral artery angioplasty with insertion of stent (Chronic) Onset Date: ~2010 Z95.820 Right common iliac, [facility] history of surgically created arteriovenous fistula s/p fistulogram Onset Date: ~09/28/18 Surgical History: coronary bypass surgery, tonsillectomy, - - CABG x3, multiple PCI coronary arteries, right common iliac angioplasty and stenting, aVF, tonsillectomy, multiple endoscopies with intervention. Psychiatric History: Anxiety Lives: Spouse/ Significant Other Smoking Status: Former smoker - *Family History Maternal Family History: Family History (Last Reviewed 09/19/19 @ 10:22 by Juidth Powell) Father CAD (coronary artery disease) Hypertension Kidney disease CVA (cerebral vascular accident) Other Cancer History Items: Heart Disease Paternal Family History: Family History (Last Reviewed 09/19/19 @ 10:22 by Judith Powell) Father CAD (coronary artery disease) Hypertension Kidney disease CVA (cerebral vascular accident) Other Cancer History Items: Heart Disease, Hypertension, Renal Disease Review of Systems Constitutional: Reports: Weight Change, Fatigue Eyes: Denies: Blurred vision, Double vision HEENT: Denies: Head Aches, Sinus Congestion, Sinus Drainage Cardiovascular: Reports: Chest Pain Respiratory: Reports: Cough, Shortness of Breath Gastrointestinal: Denies: Abdominal Pain, Nausea, Vomiting Genitourinary: Denies: Dysuria Musculoskeletal: Denies: Joint Pain, Joint Tenderness Skin: Denies: Rash, Wounds Neurological: Denies: Numbness, Tingling, Focal weakness Psychiatric: Denies: Anxiety, Depression, Homicidal Ideations, Suicidal Ideations Hematologic/ Lymphatic: Reports: Anemia, Hx of blood transfusion Objective: The patient's most recent lab work, culture data and imaging studies have all been personally reviewed. - Physical Exam Vitals/I&O's: Vital Signs Temp Pulse Resp BP Pulse Ox 98.0 F 70 24 H 112/51 L 92 11/15/19 08:05 11/15/19 13:10 11/15/19 13:10 11/15/19 08:05 11/15/19 13:10 Oxygen Flow Rate (L/min) 3 Oxygen Delivery Method Bi-pap Weight: 151 lb 7.321 oz Body Mass Index (BMI) 24.1 Finger Stick Blood Glucose 200 Intake and Output for Last 24 Hours 11/13/19 11/14/19 11/15/19 23:59 23:59 23:59 Intake Total 2170 / 2170 500 / 500 Output Total 2800 / 2800 Balance -630 / -630 500 / 500 General: Alert, Cooperative, - - Chronically ill and frail in appearance. BiPAP currently in place HEENT: Atraumatic, PERRLA, Normocephalic Oral: Dry Mucosa, - - Poor generalized dentition Neck: Supple, No Nodes, Trachea Midline Lungs: Diminished, Short of Breath, Tachypneic, - - Fine basilar rales Cardiovascular: Regular rate, Regular Rhythm, Normal S1, Normal S2 Abdomen: Bowel Sounds Present, Soft, Non Tender Extremities: No clubbing, No cyanosis Skin: No breakdown Musculoskeletal: No Tenderness to Palpation of Joints or Extremities Lymphatic: No Cervical, Supraclavicular, or Inguinal Adenopathy Neurological: Cranial nerves II-XII grossly intact, Neuro grossly intact Psych/Mental Status: Normal Affect, Appropriate Labs (Last 48 Hours) 11/14/19 11/14/19 11/14/19 01:20 01:20 01:20 WBC 12.3 H RBC 2.14 L Hgb 6.9 L Hct 21.8 L MCV 101.9 H MCH 32.2 H MCHC 31.7 L RDW Std Deviation 59.9 H RDW Coeff of Eleni 16.1 H Plt Count 170 MPV 10.4 Immature Gran % (Auto) 1.100 H Neut % (Auto) 96.3 H Lymph % (Auto) 1.5 L Waldo % (Auto) 1.0 Eos % (Auto) 0.0 Baso % (Auto) 0.1 Absolute Neuts (auto) 11.8 H Absolute Lymphs (auto) 0.19 L Nucleated RBC % 0 Differential Comment SCANNED Diff Path Review PT INR Sodium 133 L Potassium 4.2 Chloride 97 L Carbon Dioxide 26.0 Anion Gap 10 BUN 57 H Creatinine 4.93 H Estim Creat Clear Calc 12.47 Est GFR (MDRD) Af Amer 15 L Est GFR (MDRD) Non-Af 13 L BUN/Creatinine Ratio 11.6 Glucose 162 H Calcium 8.8 Phosphorus Iron TIBC Iron Saturation Ferritin Troponin I Albumin MRSA (PCR) Blood Type A NEGATIVE Antibody Screen NEGATIVE Crossmatch See Detail 11/14/19 11/14/19 11/14/19 01:20 03:47 06:50 WBC RBC Hgb Hct MCV MCH MCHC RDW Std Deviation RDW Coeff of Eleni Plt Count MPV Immature Gran % (Auto) Neut % (Auto) Lymph % (Auto) Waldo % (Auto) Eos % (Auto) Baso % (Auto) Absolute Neuts (auto) Absolute Lymphs (auto) Nucleated RBC % Differential Comment Diff Path Review PT Cancelled INR Cancelled Sodium Potassium Chloride Carbon Dioxide Anion Gap BUN Creatinine Estim Creat Clear Calc Est GFR (MDRD) Af Amer Est GFR (MDRD) Non-Af BUN/Creatinine Ratio Glucose Calcium Phosphorus Iron TIBC Iron Saturation Ferritin Troponin I 0.053 H 0.035 Albumin MRSA (PCR) Blood Type Antibody Screen Crossmatch 11/14/19 11/14/19 11/14/19 06:50 06:50 07:26 WBC RBC Hgb Hct MCV MCH MCHC RDW Std Deviation RDW Coeff of Eleni Plt Count MPV Immature Gran % (Auto) Neut % (Auto) Lymph % (Auto) Waldo % (Auto) Eos % (Auto) Baso % (Auto) Absolute Neuts (auto) Absolute Lymphs (auto) Nucleated RBC % Differential Comment Diff Path Review PT 15.1 H INR 1.2 Sodium Potassium Chloride Carbon Dioxide Anion Gap BUN Creatinine Estim Creat Clear Calc Est GFR (MDRD) Af Amer Est GFR (MDRD) Non-Af BUN/Creatinine Ratio Glucose Calcium Phosphorus Iron 32 L TIBC 302 Iron Saturation 10.6 L Ferritin 865 H Troponin I 0.032 Albumin MRSA (PCR) Blood Type Antibody Screen Crossmatch 11/15/19 11/15/19 11/15/19 05:47 05:47 14:05 WBC 12.8 H RBC 2.32 L Hgb 7.4 L Hct 23.5 L MCV 101.3 H MCH 31.9 MCHC 31.5 L RDW Std Deviation 62.9 H RDW Coeff of Eleni 17.1 H Plt Count 138 L MPV 11.3 Immature Gran % (Auto) 0.900 Neut % (Auto) 81.7 H Lymph % (Auto) 3.3 L Waldo % (Auto) 13.9 H Eos % (Auto) 0.1 Baso % (Auto) 0.1 Absolute Neuts (auto) 10.4 H Absolute Lymphs (auto) 0.42 L Nucleated RBC % 0 Differential Comment Diff Path Review Reviewed PT INR Sodium 136 Potassium 4.8 Chloride 101 Carbon Dioxide 27.0 Anion Gap BUN 44 H Creatinine 3.85 H Estim Creat Clear Calc 15.97 Est GFR (MDRD) Af Amer 20 L Est GFR (MDRD) Non-Af 17 L BUN/Creatinine Ratio 11.4 Glucose 110 H Calcium 8.5 Phosphorus 3.2 Iron TIBC Iron Saturation Ferritin Troponin I Albumin 2.6 L MRSA (PCR) Pending Blood Type Antibody Screen Crossmatch Clinical Impression(s) from Imaging Studies Chest X-Ray 11/14/19 10:12 IMPRESSION: Stable bilateral pleural effusions with underlying infiltration and/or atelectasis superimposed on CHF. Electronically Signed: Deven Hensley, at 13:52 EST , Service support , Chest CT 11/15/19 12:00 IMPRESSION: Moderate size bilateral pleural effusions with bibasilar atelectasis and/or infiltration superimposed on diffuse groundglass appearance with there are multiple small cystic changes worse in the upper lobes. Mildly enlarged mediastinal lymph nodes. Electronically Signed: Deven Hensley, at 13:31 EST , Service support , Current Medications Acetaminophen (Tylenol) 650 mg PO Q6H PRN PRN PRN Reason: Pain Score 1-3/Temp > 100.7 F Last Admin: 11/15/19 04:20 Dose: 650 mg Documented by: Albuterol Sulfate (Ventolin Aerosols) 2.5 mg INHALATION Q2H PRN PRN PRN Reason: SOB/Wheezing Albuterol/Ipratropium (Duoneb) 3 ml INHALATION Q4HWA.RT [facility] Last Admin: 11/15/19 10:49 Dose: 3 ml Documented by: Amlodipine Besylate (Norvasc) 10 mg PO DAILY [facility] Last Admin: 11/15/19 08:07 Dose: 10 mg Documented by: Atorvastatin Calcium (Lipitor) 80 mg PO QHS [facility] Last Admin: 11/14/19 21:26 Dose: 80 mg Documented by: Budesonide (Pulmicort Aerosol) 0.5 mg INHALATION BID.RT [facility]IME Sodium Chloride () 250 mls @ 15 mls/hr IV .[id number] PRN PRN Reason: Saline Flush Sodium Chloride () 250 mls @ 15 mls/hr IV .[id number] PRN PRN Reason: Additional IVPB Infusion Piperacillin Sod/Tazobactam (Sod 3.375 gm/ Sodium Chloride) 50 mls @ 12.5 mls/hr IV Q12 [facility] Metoprolol Succinate (Toprol Xl (Beta Kadi)) 50 mg PO BID [facility] Last Admin: 11/15/19 08:07 Dose: 50 mg Documented by: Ondansetron HCl (Zofran) 4 mg IV Q8H PRN PRN PRN Reason: NAUSEA/VOMITING Pantoprazole Sodium (Protonix) 20 mg PO BID [facility] Last Admin: 11/15/19 08:07 Dose: 20 mg Documented by: Senna/Docusate Sodium (Senokot-S, Eveline-Colace) 2 tablet PO BID PRN PRN PRN Reason: Constipation Sodium Chloride () 10 - 40 ml IV UD PRN PRN Reason: SALINE FLUSH Tamsulosin HCl (Flomax) 0.4 mg PO DAILY [facility] Last Admin: 11/15/19 08:07 Dose: 0.4 mg Documented by: Assessment/Plan RECOMMENDATIONS: 1. Proceed with ultrasound-guided thoracentesis tomorrow. 2. Pleural fluid studies along with serum LDH and total protein levels. 3. Send pleural fluid cytology as well. 4. Transfuse to maintain a hemoglobin at or above 7 g/dL. 5. Continue BiPAP therapy and wean FiO2 to maintain oxygen saturations at or above 90%. 6. Check strep and urine Legionella antigens along with respiratory viral jackson el. Obtain sputum culture if cough becomes productive. 7. Start empiric antimicrobials. IMPRESSIONS: 1. Acute on chronic hypoxemic respiratory failure/known history of severe obstructive lung disease Initially felt to be secondary to a diastolic mediated heart failure exacerbation. The patient does have moderate sized bilateral pleural effusions with superimposed groundglass changes on CT chest. In addition, he has known end-stage renal disease on home dialysis 5 times per week. At this time, I would recommend that we proceed with an ultrasound-guided thoracentesis tomorrow to further clarify the etiology for the patient's effusions. However, I strongly suspect that they are related to his underlying cardiac and renal disease. If dialysis is unable to clear the patient's pleural effusions, consideration can be given to Pleurx catheter placement, once infectious etiologies have been ruled out. This would be provided that the patient's effusions are not loculated in nature. For now, I would recommend continuing scheduled bronchodilators. We will add twice daily budesonide to his medication regimen today. Pulmonary infectious work-up will also be undertaken. Empiric antimicrobials will be started. Orders for ultrasound-guided thoracentesis and pleural fluid studies have been placed. 2. Acute on chronic anemia The patient does have a history of prior GI bleed. Continue PPI therapy as ordered. Monitor H&H and transfuse to maintain a hemoglobin at or above 7 g/dL. 3. End-stage renal disease Nephrology following to assist with dialysis management. 4. Coronary artery disease/atrial fibrillation/peripheral vascular disease Continue baseline medication regimen. 5. Obstructive sleep apnea Continue BiPAP therapy with naps and nightly. CODE status: Discussed CODE status at length including difference between FULL code, DNR-CCA and DNR-CC status. Following discussions about the differences in these status, patient requested full CODE STATUS. Advanced Care Planning Face to Face Time: 14 minutes This note was generated with [employer] dictation software. It may contain incorrect words, spelling, and punctuation that were not noted in checking the note before signing. Code Visit Inpatient E&M: 42239 Init Hosp L3 Procedures: 11595 Advncd Care Plan 30 Min
[2019-11-15 14:47] LABS: ALB/GLOB Ratio 0.8 RATIO (0.9-2.4); Globulin 3.5 g/dL (2.2-4.2); LDH 238 U/L (87-241); Protein, Total 6.2 g/dL (6.4-8.2)
[2019-11-15] MEDS: 0.9% Saline Lock 10 ML Syringe IV (15:59)
[2019-11-15 16:45] LABS: Probe Check PASS
[2019-11-15 16:46] LABS: M R Staph aureus DNA By PCR POSITIVE (Negative)
--- NOTE | 2019-11-15 17:01 | PCM.PN.REN ---
Subjective: Following for ESRD. Pt is still on BiPAP. ROS is limited. Pt says he feels better, but still requiring NIV. - Physical Exam Vitals/I&O's: Vital Signs Temp Pulse Resp BP Pulse Ox 98.1 F 73 20 H 113/65 93 11/15/19 14:30 11/15/19 15:02 11/15/19 14:30 11/15/19 14:30 11/15/19 14:30 Oxygen Flow Rate (L/min) 6 Oxygen Delivery Method Bi-pap Weight: 68.7 kg Body Mass Index (BMI) 24.1 Finger Stick Blood Glucose 200 Intake and Output for Last 24 Hours 11/13/19 11/14/19 11/15/19 23:59 23:59 23:59 Intake Total 2170 / 2170 500 / 500 Output Total 2800 / 2800 Balance -630 / -630 500 / 500 General: No apparent distress HEENT: Atraumatic Oral: Moist Mucosa Neck: Supple Lungs: Diminished - at bases Cardiovascular: Normal S1, Normal S2, No murmurs Abdomen: Bowel Sounds Present, Soft, Non Tender Extremities: Edema - 2+ Laboratory Results 11/14/19 01:20: Blood Type A NEGATIVE, Antibody Screen NEGATIVE, Crossmatch See Detail 11/15/19 05:47: WBC 12.8 H, RBC 2.32 L, Hgb 7.4 L, Hct 23.5 L, MCV 101.3 H, MCH 31.9, MCHC 31.5 L, RDW Std Deviation 62.9 H, RDW Coeff of Eleni 17.1 H, Plt Count 138 L, MPV 11.3, Immature Gran % (Auto) 0.900, Neut % (Auto) 81.7 H, Lymph % (Auto) 3.3 L, [place] % (Auto) 13.9 H, Eos % (Auto) 0.1, Baso % (Auto) 0.1, Absolute Neuts (auto) 10.4 H, Absolute Lymphs (auto) 0.42 L, Nucleated RBC % 0, Differential Comment , Diff Path Review Reviewed 11/15/19 05:47: Sodium 136, Potassium 4.8, Chloride 101, Carbon Dioxide 27.0, BUN 44 H, Creatinine 3.85 H, Estim Creat Clear Calc 15.97, Est GFR (MDRD) Af Amer 20 L, Est GFR (MDRD) Non-Af 17 L, BUN/Creatinine Ratio 11.4, Glucose 110 H, Calcium 8.5, Phosphorus 3.2, Albumin 2.6 L 11/15/19 05:47: Lactate Dehydrogenase 238, Total Protein 6.2 L, Globulin 3.5, Albumin/Globulin Ratio 0.8 L 11/15/19 14:05: MRSA (PCR) POSITIVE H Current Medications Acetaminophen (Tylenol) 650 mg PO Q6H PRN PRN PRN Reason: Pain Score 1-3/Temp > 100.7 F Last Admin: 11/15/19 04:20 Dose: 650 mg Documented by: Albuterol Sulfate (Ventolin Aerosols) 2.5 mg INHALATION Q2H PRN PRN PRN Reason: SOB/Wheezing Albuterol/Ipratropium (Duoneb) 3 ml INHALATION Q4HWA.RT [facility] Last Admin: 11/15/19 14:21 Dose: 3 ml Documented by: Amlodipine Besylate (Norvasc) 10 mg PO DAILY [facility] Last Admin: 11/15/19 08:07 Dose: 10 mg Documented by: Atorvastatin Calcium (Lipitor) 80 mg PO QHS [facility] Last Admin: 11/14/19 21:26 Dose: 80 mg Documented by: Budesonide (Pulmicort Aerosol) 0.5 mg INHALATION BID.RT [facility] Sodium Chloride () 250 mls @ 15 mls/hr IV .[id number] PRN PRN Reason: Saline Flush Sodium Chloride () 250 mls @ 15 mls/hr IV .[id number] PRN PRN Reason: Additional IVPB Infusion Piperacillin Sod/Tazobactam (Sod 3.375 gm/ Sodium Chloride) 50 mls @ 12.5 mls/hr IV Q12 [facility] Last Admin: 11/15/19 15:58 Dose: 12.5 mls/hr Documented by: Metoprolol Succinate (Toprol Xl (Beta Kadi)) 50 mg PO BID [facility] Last Admin: 11/15/19 08:07 Dose: 50 mg Documented by: Ondansetron HCl (Zofran) 4 mg IV Q8H PRN PRN PRN Reason: NAUSEA/VOMITING Pantoprazole Sodium (Protonix) 20 mg PO BID [facility] Last Admin: 11/15/19 08:07 Dose: 20 mg Documented by: Senna/Docusate Sodium (Senokot-S, Eveline-Colace) 2 tablet PO BID PRN PRN PRN Reason: Constipation Sodium Chloride () 10 - 40 ml IV UD PRN PRN Reason: SALINE FLUSH Last Admin: 11/15/19 15:59 Dose: 10 ml Documented by: Tamsulosin HCl (Flomax) 0.4 mg PO DAILY [facility] Last Admin: 11/15/19 08:07 Dose: 0.4 mg Documented by: Medical Necessity - Tobacco Use Smoking Status: Former smoker Assessment/Plan 1. ESRD, HD 5 days a week at home. Pt can only tolerate 2 L UF per his . Still on BiPAP and has edema. Will do isolated UF again today for 2 L. Dialysis again tomorrow. 2. Dyspnea. Has a history of COPD. Also has history of HFpEF. He has BL pleural effusion. Will IUF 2 L today. He cannot tolerate more than 2 L of fluid removal per day per . Evaluated by home health assistant. To gave US guided thoracentesis tomorrow. 3. HTN. BP is consistently < 130. Will decrease the dose of amlodipine to maximize ability to remove fluid with dialysis. 4. Anemia. No obvious history of acute blood loss. Got PRBC today with dialysis on 11/14/19. Will check [facility] (outpt [facility]) record to see if pt is on iron and/or RITCHIE.
[2019-11-15] MEDS: Budesonide Respules 0.5 MG/2 ML AMPUL.NEB. INHALATION (19:38)
[2019-11-15] MEDS: Atorvastatin Calcium 80 MG Tablet PO (22:33)
--- NOTE | 2019-11-15 23:07 | DIALYSIS ---
IUF x 2 hours, -2000ml off. Assess cannulated w/ease. Hemostasis obtained x 5 mins. Pt BP very stable t/o tx. Denied any cramping of concerns and slept most of tx. Report to Jeannie ANDRADE was given at bedside after needles pulled.
[2019-11-16] VITALS (26 sets, daily range): BP systolic 99–118; BP diastolic 39–62; PULSE 70–100; RESP 12–30; TEMP 36.6–37.4; O2SAT 94–100
--- NOTE | 2019-11-16 | IMM_PTH ---
PATIENT: ANGELINA FORREST Jr. LOC: [facility] U#:[id number] AGE/SX: 69/M ROOM: [facility] RE11/14/[address]: Dr. Kai Mulligan MD : 1950 BED: 1 DIS: 11/20/2019 SPEC #: [id number] RECD: 11/19/19 10:33 STATUS: NILAM REQ #: [id number] SHANIA: 11/16/19 00:[address]: Sharon De La Cruz DEPT: IMMUNOHISTOCHEMISTRY RECD BY: Lucy Acosta ENTERED: 11/19/19 10:34 SP TYPE: IMMUNO OTHR DR: DO Dr. Amadou Gilmore MD Dr. Jayaprakas Dasari, MD Dr. Nicholas F Kotsonis, MD Debra Lewis, ARMEN-Izabel Tissues: THORACIC FLUID Procedures: Mir Ret (add) CK20 (add) CK5-6 (add) CK7 (add) CK8 (add) MACRO (add) Vimentin (add) Pankeratin (initial) PHYSICIAN & [place] [id number] SPECIMEN INFORMATION: Tissue Source: Thoracentesis fluid Clinical Info: Pleural effusion Specimen Number: [id number] CPT code: 09646, 32962 x7 METHODOLOGY: Deparaffinized sections of prefer/formalin-fixed tissue or PAP/DQ stained slides are incubated with monoclonal/polyclonal antibodies/oligonucleotide probes. Localization is made via biotin free immunoperoxidase method. Appropriate controls are performed and reacted as expected. Results on target cell population are indicated in the following table: RESULTS: ANTIBODY / CLONE RESULT AE1-3 (AE1/AE3/PCK26) positive CK7 (OV-TL12/30) positive CK8 (74kmwvT39) positive CK20 (KS20.8) negative Vimentin (V9) positive Macro (HAM-56) positive CALRET (polyclonal) positive CK5-6 (D5 & 1684) positive These tests were developed and their performance characteristics determined by [facility]. They may not have been cleared or approved by the U.S. Food and Drug Administration. The FDA has determined that such clearance or approval is not necessary. The above immunohistochemical/dualISH markers are ordered and reviewed by the Pathologist. INTERPRETATION: Thoracentesis fluid: Consistent with reactive mesothelial cells. AM:patrick 11/20/19
[2019-11-16] MEDS: Ipratropium/Albuterol Sulfate 3 ML AMPUL.NEB INHALATION ×5 (02:44→20:30)
[2019-11-16] MEDS: ALPRAZolam 0.5 MG Tablet PO (03:04)
[2019-11-16 05:45] LABS: Absolute Lymphocyte Count 0.62 X10^3/uL (0.83-4.51); Absolute Neutrophil Count 11.3 X10^3/uL (2.0-7.7); Basophil# 0.01 X10^3/uL; Basophil% 0.1 % (0-1); Eosinophil# 0.03 X10^3/uL; Eosinophils% 0.2 % (0-5); Hematocrit 23.9 % (40-54); Hemoglobin 7.3 g/dL (13.0-16.5); Lymphocyte # 0.62 X10^3/ul (4.0); Lymphocyte % 4.6 % (19-41); Mean Corp Hgb Conc 30.5 g/dL (32-36); Mean Corpuscular Hgb 31.5 pg (27.0-32.0); Mean Platelet Vol. 10.6 fl (6.2-12.0); Monocyte# 1.27 X10^3/uL; Monocyte% 9.5 % (0-10); NRBC Flagged by Analyzer 0 % (0-5); Neutrophil # 11.31 X10^3/uL (2.7-7.7); Neutrophil % 84.7 % (47-70); Platelet Count 183 K/mm3 (150-450); RBC Distribution Width CV 17.2 % (11.6-14.6); RBC Distribution Width SD 64.3 fl (35.1-43.9); Red Blood Count 2.32 M/mm3 (4.6-6.2); White Blood Count 13.4 K/mm3 (4.4-11.0)
[2019-11-16 06:09] LABS: Albumin, Serum 2.5 g/dL (3.2-5.0); BUN 66 mg/dL (7-18); Calcium,Total 8.6 mg/dL (8.5-10.1); Chloride 105 mmol/L (98-107); EST Glomerular Filtration Rate 11 mL/min (>60); Est Glom Filt Rate - Afr Amer 13 mL/min (>60); Estimated Creatinine Clearance 11.18 ml/min; Glucose 90 mg/dL (74-106); Phosphorus 2.3 mg/dL (2.5-4.9); Potassium 5.3 mmol/L (3.5-5.1); Sodium Level 136 mmol/L (136-145)
[2019-11-16] MEDS: Budesonide Respules 0.5 MG/2 ML AMPUL.NEB. INHALATION ×2 (06:57→20:30)
--- NOTE | 2019-11-16 07:49 | PCM.PN.PUL ---
Subjective: The patient was seen and examined at the bedside this morning. Events from the last 24 hours have been reviewed. The patient is currently afebrile, hemodynamically stable and maintaining appropriate oxygen saturations on 6 L/min nasal cannula supplemental O2. I did speak with radiology yesterday, who indicated that they could perform a ultrasound-guided thoracentesis today. Hemoglobin is stable this morning at 7.3 g/dL. The patient did undergo ultrafiltration again last evening with 2 L of fluid removed. Objective: The patient's most recent lab work, culture data and imaging studies have all been personally reviewed. CT chest revealed evidence of moderate sized bilateral pleural effusions with superimposed groundglass changes bilaterally. Respiratory viral panel was negative. - Physical Exam Vitals/I&O's: Vital Signs Temp Pulse Resp BP Pulse Ox 98.1 F 73 25 H 118/54 L 94 11/16/19 05:40 11/16/19 06:48 11/16/19 06:05 11/16/19 05:40 11/16/19 06:05 Oxygen Flow Rate (L/min) 6 Oxygen Delivery Method Bi-pap Weight: 143 lb 4.807 oz Body Mass Index (BMI) 24.1 Finger Stick Blood Glucose 200 Intake and Output for Last 24 Hours 11/14/19 11/15/19 11/16/19 23:59 23:59 23:59 Intake Total 2170 / 2170 1480 / 1480 530 / 530 Output Total 2800 / 2800 1999 / 1999 900 / 900 Balance -630 / -630 -520 / -520 -370 / -370 General: Alert, Cooperative, No apparent distress HEENT: Atraumatic, PERRLA, Normocephalic Oral: Moist Mucosa, - - Poor dentition Neck: Supple, No Nodes, Trachea Midline Lungs: No rhonchi, No wheeze, No rales, Diminished Cardiovascular: Regular rate, Regular Rhythm, Normal S1, Normal S2 Abdomen: Bowel Sounds Present, Soft, Non Tender Extremities: No clubbing, No cyanosis, No edema Skin: No breakdown Musculoskeletal: Cachexia, Muscle Wasting Lymphatic: No Cervical, Supraclavicular, or Inguinal Adenopathy Neurological: Neuro grossly intact Psych/Mental Status: Normal Affect, Appropriate Labs (Last 48 Hours) 11/14/19 11/14/19 11/14/19 01:20 01:20 06:50 WBC RBC Hgb Hct MCV MCH MCHC RDW Std Deviation RDW Coeff of Eleni Plt Count MPV Immature Gran % (Auto) Neut % (Auto) Lymph % (Auto) [place] % (Auto) Eos % (Auto) Baso % (Auto) Absolute Neuts (auto) Absolute Lymphs (auto) Nucleated RBC % Differential Comment Diff Path Review Sodium 133 L Potassium 4.2 Chloride 97 L Carbon Dioxide 26.0 Anion Gap 10 BUN 57 H Creatinine 4.93 H Estim Creat Clear Calc 12.47 Est GFR (MDRD) Af Amer 15 L Est GFR (MDRD) Non-Af 13 L BUN/Creatinine Ratio 11.6 Glucose 162 H Calcium 8.8 Phosphorus Iron 32 L TIBC 302 Iron Saturation 10.6 L Ferritin 865 H Lactate Dehydrogenase Total Protein Albumin Globulin Albumin/Globulin Ratio MRSA (PCR) Blood Type A NEGATIVE Antibody Screen NEGATIVE Crossmatch See Detail 11/15/19 11/15/19 11/15/19 05:47 05:47 05:47 WBC 12.8 H RBC 2.32 L Hgb 7.4 L Hct 23.5 L MCV 101.3 H MCH 31.9 MCHC 31.5 L RDW Std Deviation 62.9 H RDW Coeff of Eleni 17.1 H Plt Count 138 L MPV 11.3 Immature Gran % (Auto) 0.900 Neut % (Auto) 81.7 H Lymph % (Auto) 3.3 L [place] % (Auto) 13.9 H Eos % (Auto) 0.1 Baso % (Auto) 0.1 Absolute Neuts (auto) 10.4 H Absolute Lymphs (auto) 0.42 L Nucleated RBC % 0 Differential Comment Diff Path Review Reviewed Sodium 136 Potassium 4.8 Chloride 101 Carbon Dioxide 27.0 Anion Gap BUN 44 H Creatinine 3.85 H Estim Creat Clear Calc 15.97 Est GFR (MDRD) Af Amer 20 L Est GFR (MDRD) Non-Af 17 L BUN/Creatinine Ratio 11.4 Glucose 110 H Calcium 8.5 Phosphorus 3.2 Iron TIBC Iron Saturation Ferritin Lactate Dehydrogenase 238 Total Protein 6.2 L Albumin 2.6 L Globulin 3.5 Albumin/Globulin Ratio 0.8 L MRSA (PCR) Blood Type Antibody Screen Crossmatch 11/15/19 11/16/19 11/16/19 14:05 05:18 05:18 WBC 13.4 H RBC 2.32 L Hgb 7.3 L Hct 23.9 L MCV 103.0 H MCH 31.5 MCHC 30.5 L RDW Std Deviation 64.3 H RDW Coeff of Eleni 17.2 H Plt Count 183 MPV 10.6 Immature Gran % (Auto) 0.900 Neut % (Auto) 84.7 H Lymph % (Auto) 4.6 L [place] % (Auto) 9.5 Eos % (Auto) 0.2 Baso % (Auto) 0.1 Absolute Neuts (auto) 11.3 H Absolute Lymphs (auto) 0.62 L Nucleated RBC % 0 Differential Comment Diff Path Review Sodium 136 Potassium 5.3 H Chloride 105 Carbon Dioxide 24.0 Anion Gap BUN 66 H Creatinine 5.50 H Estim Creat Clear Calc 11.18 Est GFR (MDRD) Af Amer 13 L Est GFR (MDRD) Non-Af 11 L BUN/Creatinine Ratio 12.0 Glucose 90 Calcium 8.6 Phosphorus 2.3 L Iron TIBC Iron Saturation Ferritin Lactate Dehydrogenase Total Protein Albumin 2.5 L Globulin Albumin/Globulin Ratio MRSA (PCR) POSITIVE H Blood Type Antibody Screen Crossmatch Microbiology 11/15/19 14:40 Mucosa - Nasopharyngeal Respiratory Panel (PCR) - Final Clinical Impression(s) from Imaging Studies Chest X-Ray 11/14/19 10:12 IMPRESSION: Stable bilateral pleural effusions with underlying infiltration and/or atelectasis superimposed on CHF. Electronically Signed: Deevn Hensley, at 13:52 EST , Service support , Chest CT 11/15/19 12:00 IMPRESSION: Moderate size bilateral pleural effusions with bibasilar atelectasis and/or infiltration superimposed on diffuse groundglass appearance with there are multiple small cystic changes worse in the upper lobes. Mildly enlarged mediastinal lymph nodes. Electronically Signed: Deven Hensley, at 13:31 EST , Service support , Current Medications Acetaminophen (Tylenol) 650 mg PO Q6H PRN PRN PRN Reason: Pain Score 1-3/Temp > 100.7 F Last Admin: 11/15/19 04:20 Dose: 650 mg Documented by: Albuterol Sulfate (Ventolin Aerosols) 2.5 mg INHALATION Q2H PRN PRN PRN Reason: SOB/Wheezing Albuterol/Ipratropium (Duoneb) 3 ml INHALATION Q4HWA.RT [facility] Last Admin: 11/16/19 06:56 Dose: 3 ml Documented by: Amlodipine Besylate (Norvasc) 2.5 mg PO DAILY [facility] Atorvastatin Calcium (Lipitor) 80 mg PO QHS [facility] Last Admin: 11/15/19 22:33 Dose: 80 mg Documented by: Budesonide (Pulmicort Aerosol) 0.5 mg INHALATION BID.RT [facility] Last Admin: 11/16/19 06:57 Dose: 0.5 mg Documented by: Sodium Chloride () 250 mls @ 15 mls/hr IV .[id number] PRN PRN Reason: Saline Flush Sodium Chloride () 250 mls @ 15 mls/hr IV .[id number] PRN PRN Reason: Additional IVPB Infusion Piperacillin Sod/Tazobactam (Sod 3.375 gm/ Sodium Chloride) 50 mls @ 12.5 mls/hr IV Q12 [facility] Last Infusion: 11/16/19 02:23 Dose: Infused Documented by: Metoprolol Succinate (Toprol Xl (Beta Kadi)) 50 mg PO BID [facility] Last Admin: 11/15/19 22:33 Dose: 50 mg Documented by: Ondansetron HCl (Zofran) 4 mg IV Q8H PRN PRN PRN Reason: NAUSEA/VOMITING Pantoprazole Sodium (Protonix) 20 mg PO BID [facility] Last Admin: 11/15/19 22:33 Dose: 20 mg Documented by: Senna/Docusate Sodium (Senokot-S, Eveline-Colace) 2 tablet PO BID PRN PRN PRN Reason: Constipation Sodium Chloride () 10 - 40 ml IV UD PRN PRN Reason: SALINE FLUSH Last Admin: 11/15/19 15:59 Dose: 10 ml Documented by: Tamsulosin HCl (Flomax) 0.4 mg PO DAILY [facility] Last Admin: 11/15/19 08:07 Dose: 0.4 mg Documented by: Medical Necessity - Tobacco Use Smoking Status: Former smoker Assessment/Plan RECOMMENDATIONS: 1. Await results of ultrasound-guided thoracentesis and pleural fluid studies. 2. Continue volume optimization with hemodialysis per nephrology recommendations. 3. Transfuse to maintain a hemoglobin at or above 7 g/dL. 4. Continue BiPAP therapy with naps and nightly. 5. Continue empiric antimicrobials, pending results of pleural fluid studies. 6. Wean supplemental oxygen to maintain saturations at or above 90%. Encourage incentive spirometer use and mobilize patient as tolerated. IMPRESSIONS: 1. Acute on chronic hypoxemic respiratory failure/known history of severe obstructive lung disease Initially felt to be secondary to a diastolic mediated heart failure exacerbation. The patient does have moderate sized bilateral pleural effusions with superimposed groundglass changes on CT chest. In addition, he has known end-stage renal disease on home dialysis 5 times per week. The patient is currently scheduled to undergo an ultrasound-guided thoracentesis today to help determine the etiology for his effusions. Pleural fluid studies will be sent, as will cytology. However, I strongly suspect that they are related to his underlying cardiac and renal disease. If dialysis is unable to clear the patient's pleural effusions, consideration can be given to Pleurx catheter placement, once infectious etiologies have been ruled out. For now, I would recommend continuing scheduled bronchodilators along with twice daily budesonide. Continue empiric antimicrobials, pending infectious work-up. Wean supplemental oxygen to maintain saturations at or above 90%. Encourage incentive spirometer use and mobilize patient as tolerated. 2. Acute on chronic anemia The patient does have a history of prior GI bleed. Continue PPI therapy as ordered. Monitor H&H and transfuse to maintain a hemoglobin at or above 7 g/dL. 3. End-stage renal disease Nephrology following to assist with dialysis management. 4. Coronary artery disease/atrial fibrillation/peripheral vascular disease Continue baseline medication regimen. 5. Obstructive sleep apnea Continue BiPAP therapy with naps and nightly. 6. CODE STATUS Full code following discussion with patient and family. This note was generated with MOGLation software. It may contain incorrect words, spelling, and punctuation that were not noted in checking the note before signing. Code Visit Inpatient E&M: 51984 Subs Hosp L2
[2019-11-16 08:28] LABS: International Normalized Ratio 1.2; Prothrombin Time (Protime)PT. 14.6 SECONDS (11.7-14.9)
[2019-11-16 08:29] LABS: Partial Thromboplast Time 36.2 Seconds (24.1-36.2)
[2019-11-16] MEDS: Pantoprazole Sodium 20 MG Tablet PO ×2 (09:27→22:16)
[2019-11-16] MEDS: Tamsulosin HCl 0.4 MG Capsule PO (09:27)
[2019-11-16] MEDS: amLODIPine 2.5 MG Tablet PO (09:27)
[2019-11-16] MEDS: Metoprolol(XL)Succ 50 MG Tablet PO ×2 (09:27→22:16)
--- NOTE | 2019-11-16 10:38 | CPS ---
pt placed on 6 lpm for breakfast...nurse aware of change
--- NOTE | 2019-11-16 12:12 | PN_ITS ---
Subjective: Patient seen and examined. He was transitioned off of BiPAP and was on 6 L of oxygen by nasal cannula at time of review. He complained of feeling tired and still complained of shortness of breath. He denied fever or chills, nausea vomiting or chest pain or diarrhea. Review of systems otherwise negative. Of note, patient's refused to allow him to have dialysis yesterday. However, patient later consented on his own to have dialysis and so he had 2 L removed. He is to have thoracentesis today. Labs and vitals reviewed. Potassium is up to 5.3 today. Hemoglobin is 7.3. Vitals/I&O's: Vital Signs Temp Pulse Resp BP Pulse Ox 98 F 70 21 H 109/47 L 100 11/16/19 09:25 11/16/19 11:02 11/16/19 10:57 11/16/19 09:25 11/16/19 10:57 Oxygen Flow Rate (L/min) 6 Oxygen Delivery Method Nasal Cannula Weight: 143 lb 4.807 oz Body Mass Index (BMI) 24.1 Finger Stick Blood Glucose 200 Intake and Output for Last 24 Hours 11/14/19 11/15/19 11/16/19 23:59 23:59 23:59 Intake Total 2170 / 2170 1480 / 1480 530 / 530 Output Total 2800 / 2800 1999 / 1999 900 / 900 Balance -630 / -630 -520 / -520 -370 / -370 General: Alert, No apparent distress, Lethargic - and frail HEENT: Atraumatic, PERRLA, EOMI, Normocephalic Oral: Dry Mucosa Neck: Supple, No JVD, Negative Carotid Bruits Lungs: - - decreased breath sounds bibasally, no wheezes or crackles. on 6L of oxygen by nasal canula Cardiovascular: Regular rate, Regular Rhythm, Normal S1, Normal S2, No murmurs Abdomen: Bowel Sounds Present, Soft, Non Tender, Non-Distended, No Hepato- splenomegaly Extremities: No clubbing, No cyanosis, No edema, Capillary Refill Less than 3 Seconds, - - AV fistula with good thrill in LUE Skin: No rashes, No breakdown Musculoskeletal: No Tenderness to Palpation of Joints or Extremities Lymphatic: No Cervical, Supraclavicular, or Inguinal Adenopathy Neurological: Cranial nerves II-XII grossly intact, Neuro grossly intact, Motor Exam 5/5 strength throughout Psych/Mental Status: lethargic, Alert and oriented to time, place, person, mood and affect Microbiology Past 72 Hours 11/15/19 14:40 Mucosa - Nasopharyngeal Respiratory Panel (PCR) - Final Laboratory Results 11/15/19 05:47: Diff Path Review Reviewed 11/15/19 05:47: Lactate Dehydrogenase 238, Total Protein 6.2 L, Globulin 3.5, Albumin/Globulin Ratio 0.8 L 11/15/19 14:05: MRSA (PCR) POSITIVE H 11/16/19 05:18: WBC 13.4 H, RBC 2.32 L, Hgb 7.3 L, Hct 23.9 L, MCV 103.0 H, MCH 31.5, MCHC 30.5 L, RDW Std Deviation 64.3 H, RDW Coeff of Eleni 17.2 H, Plt Count 183, MPV 10.6, Immature Gran % (Auto) 0.900, Neut % (Auto) 84.7 H, Lymph % (Auto) 4.6 L, [place] % (Auto) 9.5, Eos % (Auto) 0.2, Baso % (Auto) 0.1, Absolute Neuts (auto) 11.3 H, Absolute Lymphs (auto) 0.62 L, Nucleated RBC % 0 11/16/19 05:18: Sodium 136, Potassium 5.3 H, Chloride 105, Carbon Dioxide 24.0, BUN 66 H, Creatinine 5.50 H, Estim Creat Clear Calc 11.18, Est GFR (MDRD) Af Amer 13 L, Est GFR (MDRD) Non-Af 11 L, BUN/Creatinine Ratio 12.0, Glucose 90, Calcium 8.6, Phosphorus 2.3 L, Albumin 2.5 L 11/16/19 05:18: PT 14.6, INR 1.2, APTT 36.2 Diagnostic Data Chest X-Ray 11/14/19 10:12 IMPRESSION: Stable bilateral pleural effusions with underlying infiltration and/or atelectasis superimposed on CHF. Electronically Signed: Deven Hensley, at 13:52 EST , Service support , Chest CT 11/15/19 12:00 IMPRESSION: Moderate size bilateral pleural effusions with bibasilar atelectasis and/or infiltration superimposed on diffuse groundglass appearance with there are multiple small cystic changes worse in the upper lobes. Mildly enlarged mediastinal lymph nodes. Electronically Signed: Deven Hensley, at 13:31 EST , Service support , Current Medications Acetaminophen (Tylenol) 650 mg PO Q6H PRN PRN PRN Reason: Pain Score 1-3/Temp > 100.7 F Last Admin: 11/15/19 04:20 Dose: 650 mg Documented by: Albuterol Sulfate (Ventolin Aerosols) 2.5 mg INHALATION Q2H PRN PRN PRN Reason: SOB/Wheezing Albuterol/Ipratropium (Duoneb) 3 ml INHALATION Q4HWA.RT [facility] Last Admin: 11/16/19 10:57 Dose: 3 ml Documented by: Amlodipine Besylate (Norvasc) 2.5 mg PO DAILY [facility] Last Admin: 11/16/19 09:27 Dose: 2.5 mg Documented by: Atorvastatin Calcium (Lipitor) 80 mg PO QHS [facility] Last Admin: 11/15/19 22:33 Dose: 80 mg Documented by: Budesonide (Pulmicort Aerosol) 0.5 mg INHALATION BID.RT [facility] Last Admin: 11/16/19 06:57 Dose: 0.5 mg Documented by: Sodium Chloride () 250 mls @ 15 mls/hr IV .[id number] PRN PRN Reason: Saline Flush Sodium Chloride () 250 mls @ 15 mls/hr IV .[id number] PRN PRN Reason: Additional IVPB Infusion Piperacillin Sod/Tazobactam (Sod 3.375 gm/ Sodium Chloride) 50 mls @ 12.5 mls/hr IV Q12 [facility] Last Admin: 11/16/19 09:27 Dose: 12.5 mls/hr Documented by: Metoprolol Succinate (Toprol Xl (Beta Kadi)) 50 mg PO BID [facility] Last Admin: 11/16/19 09:27 Dose: 50 mg Documented by: Ondansetron HCl (Zofran) 4 mg IV Q8H PRN PRN PRN Reason: NAUSEA/VOMITING Pantoprazole Sodium (Protonix) 20 mg PO BID [facility] Last Admin: 11/16/19 09:27 Dose: 20 mg Documented by: Senna/Docusate Sodium (Senokot-S, Eveline-Colace) 2 tablet PO BID PRN PRN PRN Reason: Constipation Sodium Chloride () 10 - 40 ml IV UD PRN PRN Reason: SALINE FLUSH Last Admin: 11/15/19 15:59 Dose: 10 ml Documented by: Tamsulosin HCl (Flomax) 0.4 mg PO DAILY [facility] Last Admin: 11/16/19 09:27 Dose: 0.4 mg Documented by: STROKE Vital Signs/Narrative: Vital Signs Temp Pulse Resp BP Pulse Ox 11/16/19 11:02 70 11/16/19 10:57 100 20 H 100 11/16/19 09:27 74 11/16/19 09:25 98 F 74 20 H 109/47 L 99 11/16/19 09:00 99 Medical Necessity - Tobacco Use Smoking Status: Former smoker Assessment/Plan 1. Acute on chronic hypoxic respiratory failure due to acute on chronic HFpEF and bilateral pleural effusions as well as severe COPD * now on 6L of oxygen by nasal canula * had another session of dialysis yesterday with removal of 2L of fluid. Has had a total of 4.8L removed via dialysis since admission * Chest CT done yesterday showed moderate sized bilateral pleural effusion siwht underlying compressive atelectasis and/or infiltrates. * was started empirically on antibiotics per pulmo o/a of suspicion of infiltrates per chest CT * pulmonology on board * will await pleural fluid analysis * 2D echo: Ef of 55%, with diastolic dysfunction; no regional wall motion abnormalities seen; mild left atrial enlargement. Large left pleural effusion * 2. Acute on chronic HFpEF: as under 1 3. Acute on chronic anemia * s/p transfusion of one unit of PRBC * Hb today is 7.3 * iron panel showed iron of 32, with iron saturation of 10.6, and ferritin of 865, indicating that this is an anemia of chronic disease * stool for occult blood is pending * Baseline hemoglobin is around 7-8 * likely due to his ESRD * will monitor; transfuse if Hb falls to <7 * 4. ESRD: Does hemodialysis at home 5 days a week. Nephro on board. Had dialysis over the past 2 days, with removal of 4.8L of fluid 5. CAD status post CABG and PCI * aspirin currently on hold o/a of acute on chronic anemia * on statin and metoprolol * Sublingual nitroglycerin as needed. * 6. Chronic A. fib: Rate and rhythm controlled. On metoprolol. Not on any anticoagulation likely due to chronic anemia and history of GI bleed 7. COPD: On breathing treatments with DuoNeb's. 8. Peripheral vascular disease: Status post right common iliac angioplasty and PCI. Not on aspirin on account of history of GI bleed. Continue statin. 10.GERD: on pantoprazole. DVT prophylaxis: SCDs Code Visit Inpatient E&M: 96141 Subs Hosp L3
--- NOTE | 2019-11-16 12:24 | NURSING ---
Patient refusing to have bed alarm on
--- NOTE | 2019-11-16 12:30 | US_ITS ---
PROCEDURE: ULTRASOUND GUIDED THORACENTESIS. DATE: November 16, 2019. INDICATION: Male, 69 years old. Right pleural effusion PHYSICIAN: Deven Hensley M.D. PROCEDURE: The risks, benefits, and alternatives to the procedure were explained to the patient. The specific risks of bleeding, infection, and pneumothorax requiring chest tube insertion were discussed and accepted. Written informed consent was obtained. Ultrasonographic evaluation of the right lower pleural space was carried out. An adequate pocket was identified. The patient was placed in the sitting, upright position. The overlying skin was prepped and draped in sterile fashion. 1% lidocaine was administered subcutaneously for local anesthesia. Under ultrasound guidance, a 5 Polish thoracentesis needle/catheter system was advanced into the right posterior lower pleural fluid collection. Approximately 1320 mL of douglas-colored fluid was drained. The catheter was removed, and a sterile dressing was applied. A specimen was collected and sent to the laboratory for analysis, as requested by the referring clinician. The patient tolerated the procedure well. A chest x-ray was ordered. US/Thoracentesis W US IMPRESSION: Ultrasound-guided right thoracentesis. Electronically Signed: Deven Hensley, at 14:57 EST , Service support ,
--- NOTE | 2019-11-16 13:00 | FLU_PTH ---
PATIENT: ANGELINA FORREST Jr. LOC: [facility] U#:[id number] AGE/SX: 69/M ROOM: [facility] RE11/14/[address]: Dr. Kai Mulligan MD : 1950 BED: 1 DIS: 11/20/2019 SPEC #: [id number] RECD: 11/16/19 13:13 STATUS: NILAM RERafat #: [id number] SHANIA: 11/16/19 13:[address]: Sharon De La Cruz DEPT: CYTOLOGY RECD BY: Dae Nicole ENTERED: 11/16/19 13:42 SP TYPE: Fluid OTHR DR: DO Dr. Amadou Gilmore MD Dr. Jayaprakas Dasari, MD Debra Lewis, SEUN Tissues: THORACIC FLUID Procedures: Special Stain Group II Mucicarmine Stain (control) Surgery Specimen Level IV Cytospin Fluid HEADER OPERATION: Ultrasound-guided thoracentesis PRE-OP DIAGNOSIS: Pleural effusion TISSUE SUBMITTED: Thoracentesis fluid for cytology DIAGNOSIS CYTOLOGY Thoracentesis fluid for cytology (cytospin and cell block): Negative for malignant cells. See comment. AM:patrick 11/19/19 COMMENT Immunohistochemistry ([id number]) supports the above diagnosis. Mucin stain with matched control supports the above diagnosis. Case has been reviewed in consultation with Dr. Mccray who concurs with the above diagnosis. IDC:SJ CYTOLOGY STUDY Slides are reviewed. CYTOLOGY GROSS Received is 110 ml of yellow cloudy fluid labeled with the patient's name and and designated per the requisition as thoracentesis. Submitted for cytology preparation including cell block. / patrick 11/16/19 TC:5 CPT: 75565, 85768, 22515
--- NOTE | 2019-11-16 13:10 | RAD_ITS ---
STUDY: X-RAY CHEST REASON FOR EXAM: Male, 69 years old. Post thoracentesis TECHNIQUE: AP inspiration and expiration views. COMPARISON: Comparison is made with prior chest radiograph dated November 14, 2019. FINDINGS: The patient is status post right thoracentesis. There is no evidence of pneumothorax. Mild residual pleural parenchymal changes at the lung bases worse on the left side. RAD/Chest Insp/Exp 2 View IMPRESSION: Status post right thoracentesis. There is no evidence of pneumothorax. Electronically Signed: Deven Hensley, at 14:58 EST , Service support ,
[2019-11-16 13:11] LABS: Cytology, Body Fluid / CSF SEE PATHOLOGY REPORT
[2019-11-16 13:54] LABS: Body Fluid Mononuclear WBC # 0.943 10^3/uL; Body Fluid Polynuclear WBC # 0.655 10^3/uL; Body Fluid Total Cells Counted 1.694 10^3/ul; White Blood Count/Body Fluid 1.598 10^3/uL
[2019-11-16 14:10] LABS: Glucose, Body Fluid 123 mg/dL (40-70); LDH,Body Fluid 206 Units/l (Not Establ.)
--- NOTE | 2019-11-16 14:17 | PCM.PN.REN ---
Subjective: Pt had right thoracocentesis this am with 1300 cc fluid removal Pt said breathing is better. no nausea No vomiting - Physical Exam Vitals/I&O's: Vital Signs Temp Pulse Resp BP Pulse Ox 98 F 73 18 99/57 L 98 11/16/19 13:54 11/16/19 13:54 11/16/19 13:54 11/16/19 13:54 11/16/19 13:54 Oxygen Flow Rate (L/min) [3] 6 Oxygen Flow Rate (L/min) [2] 6 Oxygen Flow Rate (L/min) [1 ( 6 Initial Baseline)] Oxygen Flow Rate (L/min) 4 Oxygen Delivery Method [3] Nasal Cannula Oxygen Delivery Method [2] Nasal Cannula Oxygen Delivery Method [1 ( Nasal Cannula Initial Baseline)] Oxygen Delivery Method Nasal Cannula Weight: 65 kg Body Mass Index (BMI) 24.1 Finger Stick Blood Glucose 200 Intake and Output for Last 24 Hours 11/14/19 11/15/19 11/16/19 23:59 23:59 23:59 Intake Total 2170 / 2170 1480 / 1480 1895.13 / 1895.13 Output Total 2800 / 2800 1999 / 1999 2470 / 2470 Balance -630 / -630 -520 / -520 -574.87 / -574.87 General: Alert, Oriented x3 HEENT: Atraumatic Oral: Moist Mucosa Neck: Supple, No JVD Lungs: Rhonchi, Wheezes Cardiovascular: Regular rate, Regular Rhythm, Normal S1, Normal S2 Abdomen: Bowel Sounds Present, Soft, Non Tender, Non-Distended Extremities: No clubbing, No cyanosis, No edema Skin: No rashes Musculoskeletal: No Tenderness to Palpation of Joints or Extremities Lymphatic: No Cervical, Supraclavicular, or Inguinal Adenopathy Neurological: Cranial nerves II-XII grossly intact, Neuro grossly intact Psych/Mental Status: Appropriate Microbiology Past 72 Hours 11/15/19 14:40 Mucosa - Nasopharyngeal Respiratory Panel (PCR) - Final Laboratory Results 11/15/19 05:47: Lactate Dehydrogenase 238, Total Protein 6.2 L, Globulin 3.5, Albumin/Globulin Ratio 0.8 L 11/15/19 14:05: MRSA (PCR) POSITIVE H 11/16/19 05:18: WBC 13.4 H, RBC 2.32 L, Hgb 7.3 L, Hct 23.9 L, MCV 103.0 H, MCH 31.5, MCHC 30.5 L, RDW Std Deviation 64.3 H, RDW Coeff of Eleni 17.2 H, Plt Count 183, MPV 10.6, Immature Gran % (Auto) 0.900, Neut % (Auto) 84.7 H, Lymph % (Auto) 4.6 L, [place] % (Auto) 9.5, Eos % (Auto) 0.2, Baso % (Auto) 0.1, Absolute Neuts (auto) 11.3 H, Absolute Lymphs (auto) 0.62 L, Nucleated RBC % 0 11/16/19 05:18: Sodium 136, Potassium 5.3 H, Chloride 105, Carbon Dioxide 24.0, BUN 66 H, Creatinine 5.50 H, Estim Creat Clear Calc 11.18, Est GFR (MDRD) Af Amer 13 L, Est GFR (MDRD) Non-Af 11 L, BUN/Creatinine Ratio 12.0, Glucose 90, Calcium 8.6, Phosphorus 2.3 L, Albumin 2.5 L 11/16/19 05:18: PT 14.6, INR 1.2, APTT 36.2 11/16/19 13:00: Fluid Glucose 123 H, Fluid Total Protein 2.0, Fluid LDH 206 11/16/19 13:06: Fluid Source Pending, Fluid Color Pending, Fluid Appearance Pending, Fluid WBC 1.598, Fluid RBC Pending, Fluid Tot Cell Count 1.694, Fld Polynuclear WBCs # 0.655, Fld Polynuclear WBCs % 41.0, Fluid Mononuclear WBCs 0.943, Fld Mononuclear WBCs % 59.0, Fl Pathologist Comment Pending, Fluid Comment 2 Pending 11/16/19 13:06: Miscellaneous Cytology Pending Current Medications Acetaminophen (Tylenol) 650 mg PO Q6H PRN PRN PRN Reason: Pain Score 1-3/Temp > 100.7 F Last Admin: 11/15/19 04:20 Dose: 650 mg Documented by: Albuterol Sulfate (Ventolin Aerosols) 2.5 mg INHALATION Q2H PRN PRN PRN Reason: SOB/Wheezing Albuterol/Ipratropium (Duoneb) 3 ml INHALATION Q4HWA.RT [facility] Last Admin: 11/16/19 10:57 Dose: 3 ml Documented by: Amlodipine Besylate (Norvasc) 2.5 mg PO DAILY [facility] Last Admin: 11/16/19 09:27 Dose: 2.5 mg Documented by: Atorvastatin Calcium (Lipitor) 80 mg PO QHS [facility] Last Admin: 11/15/19 22:33 Dose: 80 mg Documented by: Budesonide (Pulmicort Aerosol) 0.5 mg INHALATION BID.RT [facility] Last Admin: 11/16/19 06:57 Dose: 0.5 mg Documented by: Sodium Chloride () 250 mls @ 15 mls/hr IV .[id number] PRN PRN Reason: Saline Flush Sodium Chloride () 250 mls @ 15 mls/hr IV .[id number] PRN PRN Reason: Additional IVPB Infusion Piperacillin Sod/Tazobactam (Sod 3.375 gm/ Sodium Chloride) 50 mls @ 12.5 mls/hr IV Q12 [facility] Last Infusion: 11/16/19 13:54 Dose: 12.5 mls/hr Documented by: Metoprolol Succinate (Toprol Xl (Beta Kadi)) 50 mg PO BID [facility] Last Admin: 11/16/19 09:27 Dose: 50 mg Documented by: Ondansetron HCl (Zofran) 4 mg IV Q8H PRN PRN PRN Reason: NAUSEA/VOMITING Pantoprazole Sodium (Protonix) 20 mg PO BID [facility] Last Admin: 11/16/19 09:27 Dose: 20 mg Documented by: Senna/Docusate Sodium (Senokot-S, Eveline-Colace) 2 tablet PO BID PRN PRN PRN Reason: Constipation Sodium Chloride () 10 - 40 ml IV UD PRN PRN Reason: SALINE FLUSH Last Admin: 11/15/19 15:59 Dose: 10 ml Documented by: Tamsulosin HCl (Flomax) 0.4 mg PO DAILY [facility] Last Admin: 11/16/19 09:27 Dose: 0.4 mg Documented by: Medical Necessity - Tobacco Use Smoking Status: Former smoker Assessment/Plan 1. ESRD, HD 5 days a week at home. Pt can only tolerate 2 L UF per his . had extra UF session 11/15 with 2L UF HD session today with also 2 L UF goal 2. Dyspnea. Has a history of COPD. Also has history of HFpEF. He has BL pleural effusion. Had right thoracocentesis 11/16 with 1300 cc fluid removal Will UF 2 L today. He cannot tolerate more than 2 L of fluid removal per day per . 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 3. HTN. BP is well controlled 4. Anemia. No obvious history of acute blood loss. Will give aranesp 40 mcg IV with HD session today
--- NOTE | 2019-11-16 14:27 | CPS ---
PT OFF FLOOR
[2019-11-16 14:52] LABS: Appearance/Body Fluid SL CLDY; Auto B Fluid Analyzer BKGD Ct COUNTS W/IN LIMITS (W/IN LIMITS); Color/Body Fluid YELLOW; Source- Body Fluid THORACENTESIS
[2019-11-16 14:54] LABS: Red Cell Count/Body Fluid 127 /mm3
[2019-11-16 14:56] LABS: Lymphocytes 7 %; Mesothelial Cells 6 %; Monocytes 19 %; Neutrophil (Segs) 68 %
[2019-11-16 14:57] LABS: Body Fluid QC Type(s) BF1Q
--- NOTE | 2019-11-16 15:53 | CASEMGMT ---
RAYMOND SPENCER NOTE: PT/OT soo completed and reviewed. Additional therapy recommended. RAYMOND SPENCER to room to talk with pt. Pt states he may be interested in HHC but he is not sure and wants to talk with his first. RAYMOND SPENCER offered to call his to talk with her, but pt states he does not want RN JOHANNA to call her and that he wants to wait until tomorrow to talk with her about it and make a decision. Pt given list of local [facility] agencies to review. CM to follow and talk with pt/ re: HHC @ d/c. Pt on O2 @ 6 L/M at this time. Baseline O2 is 2 L/M @ home through [facility]. Pt will need ambulatory pulse ox @ d/c and if requires more then 2 L/M O2, will need new script faxed to [facility]. Green sheet w/instructions on chart in case pt would discharge over the weekend. Junior VALADEZ RN, CM
--- NOTE | 2019-11-16 18:42 | DIALYSIS ---
HD X 3 HRS ON 2K BATH UF-1600ML C/O SOME MILD LEG CRAMPS. VITALS STABLE STASIS AT [facility] REPORT TO MICHELLE ANDRADE
[2019-11-16] MEDS: Epoetin Alfa epbx 10,000 UNITS/ML 4000 UNIT IV (19:35)
[2019-11-16] MEDS: Atorvastatin Calcium 80 MG Tablet PO (22:16)
[2019-11-16] MEDS: Ondansetron 4 MG/2 ML Vial IV (22:17)
[2019-11-17] VITALS (20 sets, daily range): BP systolic 110–113; BP diastolic 40–80; PULSE 72–84; RESP 12–31; TEMP 36.8–36.9; O2SAT 96–100
[2019-11-17 06:02] LABS: Absolute Lymphocyte Count 0.64 X10^3/uL (0.83-4.51); Absolute Neutrophil Count 9.6 X10^3/uL (2.0-7.7); Basophil# 0.02 X10^3/uL; Basophil% 0.2 % (0-1); Eosinophil# 0.08 X10^3/uL; Eosinophils% 0.7 % (0-5); Hematocrit 24.3 % (40-54); Hemoglobin 7.4 g/dL (13.0-16.5); Lymphocyte # 0.64 X10^3/ul (4.0); Lymphocyte % 5.6 % (19-41); Mean Corp Hgb Conc 30.5 g/dL (32-36); Mean Corpuscular Hgb 31.4 pg (27.0-32.0); Mean Platelet Vol. 9.7 fl (6.2-12.0); Monocyte% 8.7 % (0-10); NRBC Flagged by Analyzer 0 % (0-5); Platelet Count 168 K/mm3 (150-450); RBC Distribution Width CV 17.1 % (11.6-14.6); RBC Distribution Width SD 64.8 fl (35.1-43.9); Red Blood Count 2.36 M/mm3 (4.6-6.2); White Blood Count 11.4 K/mm3 (4.4-11.0)
--- NOTE | 2019-11-17 06:03 | PN_ITS ---
Subjective: The patient was seen and examined at the bedside this morning. Events from the last 24 hours have been reviewed. The patient is currently afebrile and hemodynamically stable. The patient tolerated dialysis again yesterday with 1.6 L of fluid removed. The patient also underwent an ultrasound-guided thoracentesis, during which time, 1.3 L of douglas-colored fluid was removed from his right hemithorax. The patient has been tolerant of nocturnal BiPAP therapy. He does report significant relief and improvement in his dyspnea after undergoing the thoracentesis yesterday. Objective: The patient's most recent lab work, culture data and imaging studies have all been personally reviewed. CT chest revealed evidence of moderate sized bilateral pleural effusions with superimposed groundglass changes bilaterally. Respiratory viral panel was negative. - Physical Exam Vitals/I&O's: Vital Signs Temp Pulse Resp BP Pulse Ox 98.4 F 73 23 H 112/47 L 100 11/17/19 04:00 11/17/19 04:00 11/17/19 04:00 11/17/19 04:00 11/17/19 04:00 Oxygen Flow Rate (L/min) [3] 6 Oxygen Flow Rate (L/min) [2] 6 Oxygen Flow Rate (L/min) [1 ( 6 Initial Baseline)] Oxygen Flow Rate (L/min) 3 Oxygen Delivery Method [3] Nasal Cannula Oxygen Delivery Method [2] Nasal Cannula Oxygen Delivery Method [1 ( Nasal Cannula Initial Baseline)] Oxygen Delivery Method Bi-pap Weight: 143 lb 4.807 oz Body Mass Index (BMI) 24.1 Finger Stick Blood Glucose 200 Intake and Output for Last 24 Hours 11/15/19 11/16/19 11/17/19 23:59 23:59 23:59 Intake Total 1480 / 1480 3106.80 / 3106.80 50 / 50 Output Total 1999 5170 / 5170 Balance -520 / -520 -2062.20 / -2062. 50 / 50 General: Alert, Cooperative, No apparent distress, - - BiPAP mask in place HEENT: Atraumatic, Normocephalic Oral: Dry Mucosa, - - Poor dentition Neck: Supple, No Nodes, Trachea Midline Lungs: Diminished Cardiovascular: Regular rate, Regular Rhythm, Normal S1, Normal S2 Abdomen: Bowel Sounds Present, Soft, Non Tender Extremities: No clubbing, No cyanosis, No edema Skin: No breakdown Musculoskeletal: No Tenderness to Palpation of Joints or Extremities, Cachexia, Muscle Wasting Lymphatic: No Cervical, Supraclavicular, or Inguinal Adenopathy Neurological: Neuro grossly intact Psych/Mental Status: Normal Affect, Appropriate Labs (Last 48 Hours) 11/15/19 11/15/19 11/15/19 05:47 05:47 05:47 WBC 12.8 H RBC 2.32 L Hgb 7.4 L Hct 23.5 L MCV 101.3 H MCH 31.9 MCHC 31.5 L RDW Std Deviation 62.9 H RDW Coeff of Eleni 17.1 H Plt Count 138 L MPV 11.3 Immature Gran % (Auto) 0.900 Neut % (Auto) 81.7 H Lymph % (Auto) 3.3 L [place] % (Auto) 13.9 H Eos % (Auto) 0.1 Baso % (Auto) 0.1 Absolute Neuts (auto) 10.4 H Absolute Lymphs (auto) 0.42 L Nucleated RBC % 0 Differential Comment Diff Path Review Reviewed PT INR APTT Sodium 136 Potassium 4.8 Chloride 101 Carbon Dioxide 27.0 BUN 44 H Creatinine 3.85 H Estim Creat Clear Calc 15.97 Est GFR (MDRD) Af Amer 20 L Est GFR (MDRD) Non-Af 17 L BUN/Creatinine Ratio 11.4 Glucose 110 H Calcium 8.5 Phosphorus 3.2 Lactate Dehydrogenase 238 Total Protein 6.2 L Albumin 2.6 L Globulin 3.5 Albumin/Globulin Ratio 0.8 L Fluid Source Fluid Color Fluid Appearance Fluid WBC Fluid RBC Fluid Tot Cell Count Fld Polynuclear WBCs # Fld Polynuclear WBCs % Fluid Mononuclear WBCs Fld Mononuclear WBCs % Fluid Neutrophils Fluid Lymphocytes Fluid Monocytes Fld Mesothelial Cells Fl Pathologist Comment Fluid Glucose Fluid Total Protein Fluid LDH Fluid Comment 2 MRSA (PCR) Miscellaneous Cytology 11/15/19 11/16/19 11/16/19 14:05 05:18 05:18 WBC 13.4 H RBC 2.32 L Hgb 7.3 L Hct 23.9 L MCV 103.0 H MCH 31.5 MCHC 30.5 L RDW Std Deviation 64.3 H RDW Coeff of Eleni 17.2 H Plt Count 183 MPV 10.6 Immature Gran % (Auto) 0.900 Neut % (Auto) 84.7 H Lymph % (Auto) 4.6 L [place] % (Auto) 9.5 Eos % (Auto) 0.2 Baso % (Auto) 0.1 Absolute Neuts (auto) 11.3 H Absolute Lymphs (auto) 0.62 L Nucleated RBC % 0 Differential Comment Diff Path Review PT INR APTT Sodium 136 Potassium 5.3 H Chloride 105 Carbon Dioxide 24.0 BUN 66 H Creatinine 5.50 H Estim Creat Clear Calc 11.18 Est GFR (MDRD) Af Amer 13 L Est GFR (MDRD) Non-Af 11 L BUN/Creatinine Ratio 12.0 Glucose 90 Calcium 8.6 Phosphorus 2.3 L Lactate Dehydrogenase Total Protein Albumin 2.5 L Globulin Albumin/Globulin Ratio Fluid Source Fluid Color Fluid Appearance Fluid WBC Fluid RBC Fluid Tot Cell Count Fld Polynuclear WBCs # Fld Polynuclear WBCs % Fluid Mononuclear WBCs Fld Mononuclear WBCs % Fluid Neutrophils Fluid Lymphocytes Fluid Monocytes Fld Mesothelial Cells Fl Pathologist Comment Fluid Glucose Fluid Total Protein Fluid LDH Fluid Comment 2 MRSA (PCR) POSITIVE H Miscellaneous Cytology 11/16/19 11/16/19 11/16/19 05:18 13:00 13:06 WBC RBC Hgb Hct MCV MCH MCHC RDW Std Deviation RDW Coeff of Eleni Plt Count MPV Immature Gran % (Auto) Neut % (Auto) Lymph % (Auto) [place] % (Auto) Eos % (Auto) Baso % (Auto) Absolute Neuts (auto) Absolute Lymphs (auto) Nucleated RBC % Differential Comment Diff Path Review PT 14.6 INR 1.2 APTT 36.2 Sodium Potassium Chloride Carbon Dioxide BUN Creatinine Estim Creat Clear Calc Est GFR (MDRD) Af Amer Est GFR (MDRD) Non-Af BUN/Creatinine Ratio Glucose Calcium Phosphorus Lactate Dehydrogenase Total Protein Albumin Globulin Albumin/Globulin Ratio Fluid Source THORACENTESIS Fluid Color YELLOW Fluid Appearance SL CLDY Fluid WBC 1.598 Fluid RBC 127 Fluid Tot Cell Count 1.694 Fld Polynuclear WBCs # 0.655 Fld Polynuclear WBCs % 41.0 Fluid Mononuclear WBCs 0.943 Fld Mononuclear WBCs % 59.0 Fluid Neutrophils 68 Fluid Lymphocytes 7 Fluid Monocytes 19 Fld Mesothelial Cells 6 Fl Pathologist Comment May follow Fluid Glucose 123 H Fluid Total Protein 2.0 Fluid LDH 206 Fluid Comment 2 SEE COMMENT MRSA (PCR) Miscellaneous Cytology 11/16/19 11/17/19 11/17/19 13:06 05:50 05:50 WBC 11.4 H RBC 2.36 L Hgb 7.4 L Hct 24.3 L MCV 103.0 H MCH 31.4 MCHC 30.5 L RDW Std Deviation 64.8 H RDW Coeff of Eleni 17.1 H Plt Count 168 MPV 9.7 Immature Gran % (Auto) 0.800 Neut % (Auto) 84.0 H Lymph % (Auto) 5.6 L [place] % (Auto) 8.7 Eos % (Auto) 0.7 Baso % (Auto) 0.2 Absolute Neuts (auto) 9.6 H Absolute Lymphs (auto) 0.64 L Nucleated RBC % 0 Differential Comment Diff Path Review PT INR APTT Sodium Pending Potassium Pending Chloride Pending Carbon Dioxide Pending BUN Pending Creatinine Pending Estim Creat Clear Calc Est GFR (MDRD) Af Amer Pending Est GFR (MDRD) Non-Af Pending BUN/Creatinine Ratio Pending Glucose Pending Calcium Pending Phosphorus Pending Lactate Dehydrogenase Total Protein Albumin Pending Globulin Albumin/Globulin Ratio Fluid Source Fluid Color Fluid Appearance Fluid WBC Fluid RBC Fluid Tot Cell Count Fld Polynuclear WBCs # Fld Polynuclear WBCs % Fluid Mononuclear WBCs Fld Mononuclear WBCs % Fluid Neutrophils Fluid Lymphocytes Fluid Monocytes Fld Mesothelial Cells Fl Pathologist Comment Fluid Glucose Fluid Total Protein Fluid LDH Fluid Comment 2 MRSA (PCR) Miscellaneous Cytology Pending Microbiology 11/16/19 13:06 Fluid - Pleural (Lung) Gram Stain - Final 11/15/19 14:40 Mucosa - Nasopharyngeal Respiratory Panel (PCR) - Final Clinical Impression(s) from Imaging Studies Chest X-Ray 11/14/19 10:12 IMPRESSION: Stable bilateral pleural effusions with underlying infiltration and/or atelectasis superimposed on CHF. Electronically Signed: Deven Hensley, at 13:52 EST , Service support , Chest CT 11/15/19 12:00 IMPRESSION: Moderate size bilateral pleural effusions with bibasilar atelectasis and/or infiltration superimposed on diffuse groundglass appearance with there are multiple small cystic changes worse in the upper lobes. Mildly enlarged mediastinal lymph nodes. Electronically Signed: Deven Reichjadne, at 13:31 EST , Service support , Thoracentesis Ultrasound 11/16/19 12:30 IMPRESSION: Ultrasound-guided right thoracentesis. Electronically Signed: Deven Ayden, at 14:57 EST , Service support , Chest X-Ray 11/16/19 13:10 IMPRESSION: Status post right thoracentesis. There is no evidence of pneumothorax. Electronically Signed: Deven Ayden, at 14:58 EST , Service support , Current Medications Acetaminophen (Tylenol) 650 mg PO Q6H PRN PRN PRN Reason: Pain Score 1-3/Temp > 100.7 F Last Admin: 11/15/19 04:20 Dose: 650 mg Documented by: Albuterol Sulfate (Ventolin Aerosols) 2.5 mg INHALATION Q2H PRN PRN PRN Reason: SOB/Wheezing Albuterol/Ipratropium (Duoneb) 3 ml INHALATION Q4HWA.RT [facility] Last Admin: 11/16/19 20:30 Dose: 3 ml Documented by: Amlodipine Besylate (Norvasc) 2.5 mg PO DAILY [facility] Last Admin: 11/16/19 09:27 Dose: 2.5 mg Documented by: Atorvastatin Calcium (Lipitor) 80 mg PO QHS [facility] Last Admin: 11/16/19 22:16 Dose: 80 mg Documented by: Budesonide (Pulmicort Aerosol) 0.5 mg INHALATION BID.RT [facility] Last Admin: 11/16/19 20:30 Dose: 0.5 mg Documented by: Sodium Chloride () 250 mls @ 15 mls/hr IV .[id number] PRN PRN Reason: Saline Flush Sodium Chloride () 250 mls @ 15 mls/hr IV .[id number] PRN PRN Reason: Additional IVPB Infusion Piperacillin Sod/Tazobactam (Sod 3.375 gm/ Sodium Chloride) 50 mls @ 12.5 mls/hr IV Q12 [facility] Last Infusion: 11/17/19 02:16 Dose: Infused Documented by: Sodium Chloride () 250 mls @ 15 mls/hr IV .[id number] PRN PRN Reason: Saline Flush Sodium Chloride () 250 mls @ 15 mls/hr IV .[id number] PRN PRN Reason: Additional IVPB Infusion Metoprolol Succinate (Toprol Xl (Beta Kadi)) 50 mg PO BID [facility] Last Admin: 11/16/19 22:16 Dose: 50 mg Documented by: Ondansetron HCl (Zofran) 4 mg IV Q8H PRN PRN PRN Reason: NAUSEA/VOMITING Last Admin: 11/16/19 22:17 Dose: 4 mg Documented by: Pantoprazole Sodium (Protonix) 20 mg PO BID [facility] Last Admin: 11/16/19 22:16 Dose: 20 mg Documented by: Senna/Docusate Sodium (Senokot-S, Eveline-Colace) 2 tablet PO BID PRN PRN PRN Reason: Constipation Sodium Chloride () 10 - 40 ml IV UD PRN PRN Reason: SALINE FLUSH Last Admin: 11/15/19 15:59 Dose: 10 ml Documented by: Tamsulosin HCl (Flomax) 0.4 mg PO DAILY [facility] Last Admin: 11/16/19 09:27 Dose: 0.4 mg Documented by: Medical Necessity - Tobacco Use Smoking Status: Former smoker Assessment/Plan RECOMMENDATIONS: 1. Continue volume optimization with hemodialysis per nephrology recommendations. 2. Transfuse to maintain a hemoglobin at or above 7 g/dL. 3. Continue BiPAP therapy with naps and nightly. 4. Continue empiric antimicrobials, pending results of pleural fluid studies. 5. Wean supplemental oxygen to maintain saturations at or above 90%. Encourage incentive spirometer use and mobilize patient as tolerated. IMPRESSIONS: 1. Acute on chronic hypoxemic respiratory failure/known history of severe obstr uctive lung disease Initially felt to be secondary to a diastolic mediated heart failure exacerbation. The patient does have moderate sized bilateral pleural effusions with superimposed groundglass changes on CT chest. In addition, he has known end-stage renal disease on home dialysis 5 times per week. The patient underwent an ultrasound-guided thoracentesis on November 16, with 1.3 L of fluid removed from his right hemithorax. Per traditional Light's criteria, if at least one of the following three is fulfilled, the fluid would be considered an exudate: 1. Pleural fluid protein/serum protein ratio greater than 0.5 2. Pleural fluid LDH/serum LDH ratio greater than 0.6 3. Pleural fluid LDH greater than two thirds the upper limits of the laboratories normal serum LDH Based upon my review of the patient's pleural fluid analysis, along with serum LDH and total protein levels, the pleural fluid would be considered exudative in nature (Pleural Fluid LDH/Serum LDH ratio of 0.86). Pleural fluid cultures and cytology are pending. If dialysis is unable to clear the patient's pleural effusions, consideration can be given to Pleurx catheter placement, once infectious etiologies have been ruled out. For now, I would recommend continuing scheduled bronchodilators along with twice daily budesonide. Continue empiric antimicrobials, pending infectious work-up. Wean supplemental oxygen to maintain saturations at or above 90%. Encourage incentive spirometer use and mobilize patient as tolerated. 2. Acute on chronic anemia The patient does have a history of prior GI bleed. Continue PPI therapy as ordered. Monitor H&H and transfuse to maintain a hemoglobin at or above 7 g/dL. 3. End-stage renal disease Nephrology following to assist with dialysis management. 4. Coronary artery disease/atrial fibrillation/peripheral vascular disease Continue baseline medication regimen. 5. Obstructive sleep apnea Continue BiPAP therapy with naps and nightly. 6. CODE STATUS Full code following discussion with patient and family. This note was generated with [employer]ellyco[employer] software. It may contain incorrect words, spelling, and punctuation that were not noted in checking the note before signing. Code Visit Inpatient E&M: 73845 Subs Hosp L2
[2019-11-17 06:27] LABS: Albumin, Serum 2.4 g/dL (3.2-5.0); BUN 40 mg/dL (7-18); BUN/Creat Ratio 10.4 RATIO (10-20); Calcium,Total 7.6 mg/dL (8.5-10.1); Chloride 102 mmol/L (98-107); Creatinine, Serum 3.83 mg/dL (0.70-1.30); EST Glomerular Filtration Rate 17 mL/min (>60); Est Glom Filt Rate - Afr Amer 20 mL/min (>60); Estimated Creatinine Clearance 16.06 ml/min; Glucose 93 mg/dL (74-106); Potassium 4.5 mmol/L (3.5-5.1); Sodium Level 138 mmol/L (136-145)
--- NOTE | 2019-11-17 06:29 | CPS ---
pt was vomiting, bipap off at 10p
[2019-11-17] MEDS: Budesonide Respules 0.5 MG/2 ML AMPUL.NEB. INHALATION ×2 (07:03→19:43)
[2019-11-17] MEDS: Ipratropium/Albuterol Sulfate 3 ML AMPUL.NEB INHALATION ×4 (07:03→23:55)
--- NOTE | 2019-11-17 08:36 | PCM.PROGNOTE ---
<Haven Carlson - Last Filed: 11/17/19 14:29> Subjective: Patient seen and examined. Reports improvement in breathing. Denies current complaints. - Physical Exam Vitals/I&O's: Vital Signs Temp Pulse Resp BP Pulse Ox 98.4 F 73 18 112/47 L 96 11/17/19 04:00 11/17/19 07:30 11/17/19 07:25 11/17/19 04:00 11/17/19 07:55 Oxygen Flow Rate (L/min) [3] 6 Oxygen Flow Rate (L/min) [2] 6 Oxygen Flow Rate (L/min) [1 ( 6 Initial Baseline)] Oxygen Flow Rate (L/min) 3 Oxygen Delivery Method [3] Nasal Cannula Oxygen Delivery Method [2] Nasal Cannula Oxygen Delivery Method [1 ( Nasal Cannula Initial Baseline)] Oxygen Delivery Method Nasal Cannula Weight: 141 lb 15.643 oz Body Mass Index (BMI) 24.1 Finger Stick Blood Glucose 200 Intake and Output for Last 24 Hours 11/15/19 11/16/19 11/17/19 23:59 23:59 23:59 Intake Total 1480 / 1480 3106.80 / 3106.80 290 / 290 Output Total 1999 5170 / 5170 800 / 800 Balance -520 / -520 -2063.20 / -2063.20 -510 / -510 General: Alert, Oriented x3, Cooperative HEENT: Atraumatic, PERRLA, EOMI, Normocephalic Neck: Supple, No JVD, Negative Carotid Bruits Lungs: Clear to auscultation, Diminished Cardiovascular: Regular rate, Regular Rhythm, Normal S1, Normal S2, No murmurs Abdomen: Bowel Sounds Present, Soft, Non Tender, Non-Distended Extremities: No clubbing, No cyanosis, No edema, Capillary Refill Less than 3 Seconds Skin: No rashes, No breakdown Musculoskeletal: No Tenderness to Palpation of Joints or Extremities Neurological: Cranial nerves II-XII grossly intact, Neuro grossly intact Psych/Mental Status: Normal Affect, Appropriate Microbiology Past 72 Hours 11/16/19 13:06 Fluid - Pleural (Lung) Gram Stain - Final 11/15/19 14:40 Mucosa - Nasopharyngeal Respiratory Panel (PCR) - Final Laboratory Results 11/16/19 13:00: Fluid Glucose 123 H, Fluid Total Protein 2.0, Fluid LDH 206 01/31/20 13:06: Fluid Source THORACENTESIS, Fluid Color YELLOW, Fluid Appearance SL CLDY, Fluid WBC 1.598, Fluid RBC 127, Fluid Tot Cell Count 1.694, Fld Polynuclear WBCs # 0.655, Fld Polynuclear WBCs % 41.0, Fluid Mononuclear WBCs 0.943, Fld Mononuclear WBCs % 59.0, Fluid Neutrophils 68, Fluid Lymphocytes 7, Fluid Monocytes 19, Fld Mesothelial Cells 6, Fl Pathologist Comment May follow, Fluid Comment 2 SEE COMMENT 11/16/19 13:06: Miscellaneous Cytology Pending 11/17/19 05:50: WBC 11.4 H, RBC 2.36 L, Hgb 7.4 L, Hct 24.3 L, MCV 103.0 H, MCH 31.4, MCHC 30.5 L, RDW Std Deviation 64.8 H, RDW Coeff of Eleni 17.1 H, Plt Count 168, MPV 9.7, Immature Gran % (Auto) 0.800, Neut % (Auto) 84.0 H, Lymph % (Auto) 5.6 L, [place] % (Auto) 8.7, Eos % (Auto) 0.7, Baso % (Auto) 0.2, Absolute Neuts (auto) 9.6 H, Absolute Lymphs (auto) 0.64 L, Nucleated RBC % 0 11/17/19 05:50: Sodium 138, Potassium 4.5, Chloride 102, Carbon Dioxide 31.0, BUN 40 H, Creatinine 3.83 H, Estim Creat Clear Calc 16.06, Est GFR (MDRD) Af Amer 20 L, Est GFR (MDRD) Non-Af 17 L, BUN/Creatinine Ratio 10.4, Glucose 93, Calcium 7.6 L, Phosphorus 3.0, Albumin 2.4 L Current Medications Acetaminophen (Tylenol) 650 mg PO Q6H PRN PRN PRN Reason: Pain Score 1-3/Temp > 100.7 F Last Admin: 11/15/19 04:20 Dose: 650 mg Documented by: Albuterol Sulfate (Ventolin Aerosols) 2.5 mg INHALATION Q2H PRN PRN PRN Reason: SOB/Wheezing Albuterol/Ipratropium (Duoneb) 3 ml INHALATION Q4HWA.RT JAIME Last Admin: 11/17/19 07:03 Dose: 3 ml Documented by: Amlodipine Besylate (Norvasc) 2.5 mg PO DAILY [facility] Last Admin: 11/16/19 09:27 Dose: 2.5 mg Documented by: Atorvastatin Calcium (Lipitor) 80 mg PO QHS [facility] Last Admin: 11/16/19 22:16 Dose: 80 mg Documented by: Budesonide (Pulmicort Aerosol) 0.5 mg INHALATION BID.RT [facility] Last Admin: 11/17/19 07:03 Dose: 0.5 mg Documented by: Sodium Chloride () 250 mls @ 15 mls/hr IV .[id number] PRN PRN Reason: Saline Flush Sodium Chloride () 250 mls @ 15 mls/hr IV .[id number] PRN PRN Reason: Additional IVPB Infusion Piperacillin Sod/Tazobactam (Sod 3.375 gm/ Sodium Chloride) 50 mls @ 12.5 mls/hr IV Q12 [facility] Last Infusion: 11/17/19 02:16 Dose: Infused Documented by: Sodium Chloride () 250 mls @ 15 mls/hr IV .[id number] PRN PRN Reason: Saline Flush Sodium Chloride () 250 mls @ 15 mls/hr IV .[id number] PRN PRN Reason: Additional IVPB Infusion Metoprolol Succinate (Toprol Xl (Beta Kadi)) 50 mg PO BID [facility] Last Admin: 11/16/19 22:16 Dose: 50 mg Documented by: Ondansetron HCl (Zofran) 4 mg IV Q8H PRN PRN PRN Reason: NAUSEA/VOMITING Last Admin: 11/16/19 22:17 Dose: 4 mg Documented by: Pantoprazole Sodium (Protonix) 20 mg PO BID [facility] Last Admin: 11/16/19 22:16 Dose: 20 mg Documented by: Senna/Docusate Sodium (Senokot-S, Eveline-Colace) 2 tablet PO BID PRN PRN PRN Reason: Constipation Sodium Chloride () 10 - 40 ml IV UD PRN PRN Reason: SALINE FLUSH Last Admin: 11/15/19 15:59 Dose: 10 ml Documented by: Tamsulosin HCl (Flomax) 0.4 mg PO DAILY [facility] Last Admin: 11/16/19 09:27 Dose: 0.4 mg Documented by: Medical Necessity - Tobacco Use Smoking Status: Former smoker Assessment/Plan 1. Acute on chronic hypoxic respiratory failure secondary to acute on chronic heart failure with preserved ejection fraction with associated bilateral pleural effusions as well as severe underlying COPD without current exacerbation-continue supplement oxygen to maintain O2 at or above 90%. Patient underwent ultrasound-guided right-sided thoracentesis 11/16/2019 with removal of 1.3 L fluid, pleural fluid appears exudative in nature. Cultures and cytology pending. Pulmonary medicine recommending continuing empiric antibiotics pending final cultures. Continue IV Zosyn. If pleural effusions are persistent despite dialysis, patient may be considered for Pleurx catheter placement. Echocardiogram demonstrates an EF of 55%, large left pleural effusion. 2. Chronic severe COPD-no acute exacerbation. As needed albuterol aerosols. 3. End-stage renal disease on hemodialysis-nephrology following. Continue dialysis per nephrology recommendations. 4. Acute on chronic iron deficiency anemia/anemia of chronic disease-trend CBC, transfuse for hemoglobin less than 7. 5. CAD status post CABG X3-continue statin, metoprolol. Aspirin on hold given acute anemia. 6. BPH-continue Flomax regimen. 7. Hypertension-stable, continue metoprolol regimen. 8. History of colonic ischemia/history of GI bleed-November 2017 patient had a ischemic right colon and proximal transverse colon and underwent ileostomy. Continue PPI. 9. Anxiety-uncontrolled. Continue home Xanax regimen however recommend discussion with primary care physician on long-term agent for further anxiety control. 10. PAD-continue statin, aspirin on hold. 11. Hyperlipidemia-continue statin regimen. 12. RAVEN-continue BiPAP nightly and PRN. DVT prophylaxis-SCDs. Pharmacologic prophylaxis contraindicated due to anemia. This patient was seen by SEUN Obregon under the supervision of Dr. Mulligan. <Kai Mulligan F - Last Filed: 11/17/19 16:43> - Physical Exam Vitals/I&O's: Vital Signs Temp Pulse Resp BP Pulse Ox 98.4 F 84 18 113/40 L 96 11/17/19 14:16 11/17/19 14:16 11/17/19 14:16 11/17/19 14:16 11/17/19 14:16 Oxygen Flow Rate (L/min) [3] 6 Oxygen Flow Rate (L/min) [2] 6 Oxygen Flow Rate (L/min) [1 ( 6 Initial Baseline)] Oxygen Flow Rate (L/min) 3 Oxygen Delivery Method [3] Nasal Cannula Oxygen Delivery Method [2] Nasal Cannula Oxygen Delivery Method [1 ( Nasal Cannula Initial Baseline)] Oxygen Delivery Method Nasal Cannula Weight: 141 lb 15.643 oz Body Mass Index (BMI) 24.1 Finger Stick Blood Glucose 200 Intake and Output for Last 24 Hours 11/15/19 11/16/19 11/17/19 23:59 23:59 23:59 Intake Total 1480 / 1480 3106.80 / 3106.80 340 / 340 Output Total 1999 5170 / 5170 1150 / 1150 Balance -520 / -520 -2063.20 / -2063.20 -810 / -810 Microbiology Past 72 Hours 11/16/19 13:06 Fluid - Pleural (Lung) Gram Stain - Final 11/16/19 13:06 Fluid - Pleural (Lung) Body Fluid Culture - Preliminary No growth-Final to follow 11/15/19 14:40 Mucosa - Nasopharyngeal Respiratory Panel (PCR) - Final Laboratory Results 11/17/19 05:50: WBC 11.4 H, RBC 2.36 L, Hgb 7.4 L, Hct 24.3 L, MCV 103.0 H, MCH 31.4, MCHC 30.5 L, RDW Std Deviation 64.8 H, RDW Coeff of Eleni 17.1 H, Plt Count 168, MPV 9.7, Immature Gran % (Auto) 0.800, Neut % (Auto) 84.0 H, Lymph % (Auto) 5.6 L, [place] % (Auto) 8.7, Eos % (Auto) 0.7, Baso % (Auto) 0.2, Absolute Neuts (auto) 9.6 H, Absolute Lymphs (auto) 0.64 L, Nucleated RBC % 0 11/17/19 05:50: Sodium 138, Potassium 4.5, Chloride 102, Carbon Dioxide 31.0, BUN 40 H, Creatinine 3.83 H, Estim Creat Clear Calc 16.06, Est GFR (MDRD) Af Amer 20 L, Est GFR (MDRD) Non-Af 17 L, BUN/Creatinine Ratio 10.4, Glucose 93, Calcium 7.6 L, Phosphorus 3.0, Albumin 2.4 L Current Medications Acetaminophen (Tylenol) 650 mg PO Q6H PRN PRN PRN Reason: Pain Score 1-3/Temp > 100.7 F Last Admin: 11/15/19 04:20 Dose: 650 mg Documented by: Albuterol Sulfate (Ventolin Aerosols) 2.5 mg INHALATION Q2H PRN PRN PRN Reason: SOB/Wheezing Albuterol/Ipratropium (Duoneb) 3 ml INHALATION Q4HWA.RT [facility] Last Admin: 11/17/19 15:48 Dose: Not Given Documented by: Amlodipine Besylate (Norvasc) 2.5 mg PO DAILY [facility] Last Admin: 11/17/19 09:20 Dose: 2.5 mg Documented by: Atorvastatin Calcium (Lipitor) 80 mg PO QHS [facility] Last Admin: 11/16/19 22:16 Dose: 80 mg Documented by: Budesonide (Pulmicort Aerosol) 0.5 mg INHALATION BID.RT [facility] Last Admin: 11/17/19 07:03 Dose: 0.5 mg Documented by: Sodium Chloride () 250 mls @ 15 mls/hr IV .[id number] PRN PRN Reason: Saline Flush Sodium Chloride () 250 mls @ 15 mls/hr IV .[id number] PRN PRN Reason: Additional IVPB Infusion Piperacillin Sod/Tazobactam (Sod 3.375 gm/ Sodium Chloride) 50 mls @ 12.5 mls/hr IV Q12 [facility] Last Infusion: 11/17/19 14:16 Dose: Infused Documented by: Sodium Chloride () 250 mls @ 15 mls/hr IV .[id number] PRN PRN Reason: Saline Flush Sodium Chloride () 250 mls @ 15 mls/hr IV .[id number] PRN PRN Reason: Additional IVPB Infusion Metoprolol Succinate (Toprol Xl (Beta Kadi)) 50 mg PO BID [facility] Last Admin: 11/17/19 09:20 Dose: 50 mg Documented by: Ondansetron HCl (Zofran) 4 mg IV Q8H PRN PRN PRN Reason: NAUSEA/VOMITING Last Admin: 11/16/19 22:17 Dose: 4 mg Documented by: Pantoprazole Sodium (Protonix) 20 mg PO BID [facility] Last Admin: 11/17/19 09:20 Dose: 20 mg Documented by: Senna/Docusate Sodium (Senokot-S, Eveline-Colace) 2 tablet PO BID PRN PRN PRN Reason: Constipation Sodium Chloride () 10 - 40 ml IV UD PRN PRN Reason: SALINE FLUSH Last Admin: 11/15/19 15:59 Dose: 10 ml Documented by: Tamsulosin HCl (Flomax) 0.4 mg PO DAILY [facility] Last Admin: 11/17/19 09:20 Dose: 0.4 mg Documented by: Code Visit Addendum: Dr. Mulligan I personally examined the patient and reviewed the chart. I agree with the above. 69-year-old male with a history of chronic diastolic dysfunction presents with shortness of breath secondary to acute exacerbation of his diastolic CHF with bilateral pleural effusions. He had a thoracentesis this admission with an exudative effusion based on that criteria at 1, there is been he states he is undergoing dialysis and if there is no resolution of his pleural effusions, may need a permanent Pleurx catheter placed. He is breathing a little bit better but is not quite back to his baseline, will continue with his previous medical management. Once again had a discussion with him on palliative care versus hospice and he states his quality of life is pretty good at the moment and therefore would like to continue with what we are doing. Inpatient E&M: [id number] [facility] L2
[2019-11-17] MEDS: amLODIPine 2.5 MG Tablet PO (09:20)
[2019-11-17] MEDS: Pantoprazole Sodium 20 MG Tablet PO ×2 (09:20→21:39)
[2019-11-17] MEDS: Metoprolol(XL)Succ 50 MG Tablet PO ×2 (09:20→21:40)
[2019-11-17] MEDS: Tamsulosin HCl 0.4 MG Capsule PO (09:20)
--- NOTE | 2019-11-17 20:39 | CPS ---
Pt. noted to have blood under lip and nose when [employer] came into room. Tx was given per pt. request before blood was cleaned off lip and nose. No active bleeding was noted from either nose or mouth. Will add humidity to BiPAP tonight because of complaints of bloody nose with BiPAP usage. No skin damage was noted under mask. Blood was cleaned off noted spots.
[2019-11-17] MEDS: ALPRAZolam 0.5 MG Tablet PO (21:39)
[2019-11-17] MEDS: Atorvastatin Calcium 80 MG Tablet PO (21:40)
[2019-11-18] VITALS (19 sets, daily range): BP systolic 105–115; BP diastolic 42–65; PULSE 65–112; RESP 12–25; TEMP 36.6–37.1; O2SAT 93–100
[2019-11-18 06:30] LABS: Hematocrit 23.9 % (40-54); Hemoglobin 7.3 g/dL (13.0-16.5); Mean Corp Hgb Conc 30.5 g/dL (32-36); Mean Corpuscular Hgb 31.3 pg (27.0-32.0); Mean Corpuscular Volume 102.6 fL (80-94); Mean Platelet Vol. 10.3 fl (6.2-12.0); Platelet Count 174 K/mm3 (150-450); RBC Distribution Width CV 16.7 % (11.6-14.6); RBC Distribution Width SD 62.6 fl (35.1-43.9); Red Blood Count 2.33 M/mm3 (4.6-6.2); White Blood Count 11.5 K/mm3 (4.4-11.0)
[2019-11-18 06:52] LABS: Anion Gap 7 (5-15); BUN 62 mg/dL (7-18); BUN/Creat Ratio 10.4 RATIO (10-20); Chloride 102 mmol/L (98-107); Creatinine, Serum 5.95 mg/dL (0.70-1.30); EST Glomerular Filtration Rate 10 mL/min (>60); Est Glom Filt Rate - Afr Amer 12 mL/min (>60); Estimated Creatinine Clearance 10.34 ml/min; Glucose 96 mg/dL (74-106); Potassium 5.5 mmol/L (3.5-5.1); Sodium Level 135 mmol/L (136-145)
[2019-11-18] MEDS: Ipratropium/Albuterol Sulfate 3 ML AMPUL.NEB INHALATION ×4 (07:05→19:55)
[2019-11-18] MEDS: Budesonide Respules 0.5 MG/2 ML AMPUL.NEB. INHALATION ×2 (07:05→19:55)
--- NOTE | 2019-11-18 08:40 | PCM.PN.PUL ---
Subjective: The patient was seen and examined at the bedside this morning. Events from the last 24 hours have been reviewed. The patient is currently afebrile, hemodynamically stable and maintaining appropriate oxygen saturations on 3 L/min via nasal cannula. The patient remains compliant with the use of nocturnal BiPAP therapy. Hemoglobin remains stable this morning. Objective: The patient's most recent lab work, culture data and imaging studies have all been personally reviewed. CT chest revealed evidence of moderate sized bilateral pleural effusions with superimposed groundglass changes bilaterally. Respiratory viral panel was negative. Pleural fluid cultures are pending. Pleural fluid cytology is pending. - Physical Exam Vitals/I&O's: Vital Signs Temp Pulse Resp BP Pulse Ox 97.9 F 71 18 105/44 L 97 11/18/19 03:45 11/18/19 07:27 11/18/19 07:27 11/18/19 03:45 11/18/19 07:27 Oxygen Flow Rate (L/min) [3] 6 Oxygen Flow Rate (L/min) [2] 6 Oxygen Flow Rate (L/min) [1 ( 6 Initial Baseline)] Oxygen Flow Rate (L/min) 3 Oxygen Delivery Method [3] Nasal Cannula Oxygen Delivery Method [2] Nasal Cannula Oxygen Delivery Method [1 ( Nasal Cannula Initial Baseline)] Oxygen Delivery Method Bi-pap Weight: 141 lb 8.588 oz Body Mass Index (BMI) 24.1 Finger Stick Blood Glucose 200 Intake and Output for Last 24 Hours 11/16/19 11/17/19 11/18/19 23:59 23:59 23:59 Intake Total 3106.80 / 3106.80 580 / 580 170 / 170 Output Total 5170 / 5170 1350 / 1350 0 / 0 Balance -2063.20 / -2063.20 -770 / -770 170 / 170 General: Alert, Cooperative, No apparent distress HEENT: Atraumatic, Normocephalic Oral: Moist Mucosa, - - Poor dentition Neck: Supple, No Nodes, Trachea Midline Lungs: Diminished Cardiovascular: Regular rate, Regular Rhythm, Normal S1, Normal S2, No murmurs Abdomen: Bowel Sounds Present, Soft, Non Tender Extremities: No clubbing, No cyanosis, No edema Skin: No breakdown Musculoskeletal: No Tenderness to Palpation of Joints or Extremities Lymphatic: No Cervical, Supraclavicular, or Inguinal Adenopathy Neurological: Neuro grossly intact Psych/Mental Status: Normal Affect, Appropriate Labs (Last 48 Hours) 11/16/19 11/16/19 11/16/19 13:00 13:06 13:06 WBC RBC Hgb Hct MCV MCH MCHC RDW Std Deviation RDW Coeff of Eleni Plt Count MPV Immature Gran % (Auto) Neut % (Auto) Lymph % (Auto) [place] % (Auto) Eos % (Auto) Baso % (Auto) Absolute Neuts (auto) Absolute Lymphs (auto) Nucleated RBC % Sodium Potassium Chloride Carbon Dioxide Anion Gap BUN Creatinine Estim Creat Clear Calc Est GFR (MDRD) Af Amer Est GFR (MDRD) Non-Af BUN/Creatinine Ratio Glucose Calcium Phosphorus Albumin Fluid Source THORACENTESIS Fluid Color YELLOW Fluid Appearance SL CLDY Fluid WBC 1.598 Fluid RBC 127 Fluid Tot Cell Count 1.694 Fld Polynuclear WBCs # 0.655 Fld Polynuclear WBCs % 41.0 Fluid Mononuclear WBCs 0.943 Fld Mononuclear WBCs % 59.0 Fluid Neutrophils 68 Fluid Lymphocytes 7 Fluid Monocytes 19 Fld Mesothelial Cells 6 Fl Pathologist Comment May follow Fluid Glucose 123 H Fluid Total Protein 2.0 Fluid LDH 206 Fluid Comment 2 SEE COMMENT Miscellaneous Cytology Pending 11/17/19 11/17/19 11/18/19 05:50 05:50 05:56 WBC 11.4 H 11.5 H RBC 2.36 L 2.33 L Hgb 7.4 L 7.3 L Hct 24.3 L 23.9 L MCV 103.0 H 102.6 H MCH 31.4 31.3 MCHC 30.5 L 30.5 L RDW Std Deviation 64.8 H 62.6 H RDW Coeff of Eleni 17.1 H 16.7 H Plt Count 168 174 MPV 9.7 10.3 Immature Gran % (Auto) 0.800 Neut % (Auto) 84.0 H Lymph % (Auto) 5.6 L [place] % (Auto) 8.7 Eos % (Auto) 0.7 Baso % (Auto) 0.2 Absolute Neuts (auto) 9.6 H Absolute Lymphs (auto) 0.64 L Nucleated RBC % 0 Sodium 138 Potassium 4.5 Chloride 102 Carbon Dioxide 31.0 Anion Gap BUN 40 H Creatinine 3.83 H Estim Creat Clear Calc 16.06 Est GFR (MDRD) Af Amer 20 L Est GFR (MDRD) Non-Af 17 L BUN/Creatinine Ratio 10.4 Glucose 93 Calcium 7.6 L Phosphorus 3.0 Albumin 2.4 L Fluid Source Fluid Color Fluid Appearance Fluid WBC Fluid RBC Fluid Tot Cell Count Fld Polynuclear WBCs # Fld Polynuclear WBCs % Fluid Mononuclear WBCs Fld Mononuclear WBCs % Fluid Neutrophils Fluid Lymphocytes Fluid Monocytes Fld Mesothelial Cells Fl Pathologist Comment Fluid Glucose Fluid Total Protein Fluid LDH Fluid Comment 2 Miscellaneous Cytology 11/18/19 05:56 WBC RBC Hgb Hct MCV MCH MCHC RDW Std Deviation RDW Coeff of Eleni Plt Count MPV Immature Gran % (Auto) Neut % (Auto) Lymph % (Auto) [place] % (Auto) Eos % (Auto) Baso % (Auto) Absolute Neuts (auto) Absolute Lymphs (auto) Nucleated RBC % Sodium 135 L Potassium 5.5 H Chloride 102 Carbon Dioxide 26.0 Anion Gap 7 BUN 62 H Creatinine 5.95 H Estim Creat Clear Calc 10.34 Est GFR (MDRD) Af Amer 12 L Est GFR (MDRD) Non-Af 10 L BUN/Creatinine Ratio 10.4 Glucose 96 Calcium 8.0 L Phosphorus Albumin Fluid Source Fluid Color Fluid Appearance Fluid WBC Fluid RBC Fluid Tot Cell Count Fld Polynuclear WBCs # Fld Polynuclear WBCs % Fluid Mononuclear WBCs Fld Mononuclear WBCs % Fluid Neutrophils Fluid Lymphocytes Fluid Monocytes Fld Mesothelial Cells Fl Pathologist Comment Fluid Glucose Fluid Total Protein Fluid LDH Fluid Comment 2 Miscellaneous Cytology Microbiology 11/16/19 13:06 Fluid - Pleural (Lung) Gram Stain - Final 11/16/19 13:06 Fluid - Pleural (Lung) Body Fluid Culture - Preliminary No growth-Final to follow Clinical Impression(s) from Imaging Studies Chest X-Ray 11/14/19 10:12 IMPRESSION: Stable bilateral pleural effusions with underlying infiltration and/or atelectasis superimposed on CHF. Electronically Signed: Deven Hensley, at 13:52 EST , Service support , Chest CT 11/15/19 12:00 IMPRESSION: Moderate size bilateral pleural effusions with bibasilar atelectasis and/or infiltration superimposed on diffuse groundglass appearance with there are multiple small cystic changes worse in the upper lobes. Mildly enlarged mediastinal lymph nodes. Electronically Signed: Deven Ayden, at 13:31 EST , Service support , Thoracentesis Ultrasound 11/16/19 12:30 IMPRESSION: Ultrasound-guided right thoracentesis. Electronically Signed: Deven Ayden, at 14:57 EST , Service support , Chest X-Ray 11/16/19 13:10 IMPRESSION: Status post right thoracentesis. There is no evidence of pneumothorax. Electronically Signed: Deven Ayden, at 14:58 EST , Service support , Current Medications Acetaminophen (Tylenol) 650 mg PO Q6H PRN PRN PRN Reason: Pain Score 1-3/Temp > 100.7 F Last Admin: 11/15/19 04:20 Dose: 650 mg Documented by: Albuterol Sulfate (Ventolin Aerosols) 2.5 mg INHALATION Q2H PRN PRN PRN Reason: SOB/Wheezing Albuterol/Ipratropium (Duoneb) 3 ml INHALATION Q4HWA.RT [facility] Last Admin: 11/18/19 07:05 Dose: 3 ml Documented by: Alprazolam (Xanax) 0.5 mg PO TID PRN PRN PRN Reason: ANXIETY Last Admin: 11/17/19 21:39 Dose: 0.5 mg Documented by: Amlodipine Besylate (Norvasc) 2.5 mg PO DAILY [facility] Last Admin: 11/17/19 09:20 Dose: 2.5 mg Documented by: Atorvastatin Calcium (Lipitor) 80 mg PO QHS [facility] Last Admin: 11/17/19 21:40 Dose: 80 mg Documented by: Budesonide (Pulmicort Aerosol) 0.5 mg INHALATION BID.RT [facility] Last Admin: 11/18/19 07:05 Dose: 0.5 mg Documented by: Sodium Chloride () 250 mls @ 15 mls/hr IV .[id number] PRN PRN Reason: Saline Flush Sodium Chloride () 250 mls @ 15 mls/hr IV .[id number] PRN PRN Reason: Additional IVPB Infusion Piperacillin Sod/Tazobactam (Sod 3.375 gm/ Sodium Chloride) 50 mls @ 12.5 mls/hr IV Q12 [facility] Last Infusion: 11/18/19 01:40 Dose: Infused Documented by: Sodium Chloride () 250 mls @ 15 mls/hr IV .[id number] PRN PRN Reason: Saline Flush Sodium Chloride () 250 mls @ 15 mls/hr IV .[id number] PRN PRN Reason: Additional IVPB Infusion Metoprolol Succinate (Toprol Xl (Beta Kadi)) 50 mg PO BID [facility] Last Admin: 11/17/19 21:40 Dose: 50 mg Documented by: Ondansetron HCl (Zofran) 4 mg IV Q8H PRN PRN PRN Reason: NAUSEA/VOMITING Last Admin: 11/16/19 22:17 Dose: 4 mg Documented by: Pantoprazole Sodium (Protonix) 20 mg PO BID [facility] Last Admin: 11/17/19 21:39 Dose: 20 mg Documented by: Senna/Docusate Sodium (Senokot-S, Eveline-Colace) 2 tablet PO BID PRN PRN PRN Reason: Constipation Sodium Chloride () 10 - 40 ml IV UD PRN PRN Reason: SALINE FLUSH Last Admin: 11/15/19 15:59 Dose: 10 ml Documented by: Tamsulosin HCl (Flomax) 0.4 mg PO DAILY [facility] Last Admin: 11/17/19 09:20 Dose: 0.4 mg Documented by: Medical Necessity - Tobacco Use Smoking Status: Former smoker Assessment/Plan RECOMMENDATIONS: 1. Continue volume optimization with hemodialysis per nephrology recommendations. 2. Transfuse to maintain a hemoglobin at or above 7 g/dL. 3. Continue BiPAP therapy with naps and nightly. 4. Continue empiric antimicrobials, pending results of pleural fluid studies. 5. Wean supplemental oxygen to maintain saturations at or above 90%. Encourage incentive spirometer use and mobilize patient as tolerated. IMPRESSIONS: 1. Acute on chronic hypoxemic respiratory failure/known history of severe obstructive lung disease Initially felt to be secondary to a diastolic mediated heart failure exacerbation. The patient does have moderate sized bilateral pleural effusions with superimposed groundglass changes on CT chest. In addition, he has known end-stage renal disease on home dialysis 5 times per week. The patient underwent an ultrasound-guided thoracentesis on November 16, with 1.3 L of fluid removed from his right hemithorax. Per traditional Light's criteria, if at least one of the following three is fulfilled, the fluid would be considered an exudate: 1. Pleural fluid protein/serum protein ratio greater than 0.5 2. Pleural fluid LDH/serum LDH ratio greater than 0.6 3. Pleural fluid LDH greater than two thirds the upper limits of the laboratories normal serum LDH Based upon my review of the patient's pleural fluid analysis, along with serum LDH and total protein levels, the pleural fluid would be considered exudative in nature (Pleural Fluid LDH/Serum LDH ratio of 0.86). Pleural fluid cultures and cytology are pending. If dialysis is unable to clear the patient's pleural effusions, consideration can be given to Pleurx catheter placement, once infectious etiologies have been ruled out. For now, I would recommend continuing scheduled bronchodilators along with twice daily budesonide. Continue empiric antimicrobials, pending infectious work-up. Wean supplemental oxygen to maintain saturations at or above 90%. Encourage incentive spirometer use and mobilize patient as tolerated. 2. Acute on chronic anemia The patient does have a history of prior GI bleed. Continue PPI therapy as ordered. Monitor H&H and transfuse to maintain a hemoglobin at or above 7 g/dL. 3. End-stage renal disease Nephrology following to assist with dialysis management. 4. Coronary artery disease/atrial fibrillation/peripheral vascular disease Continue baseline medication regimen. 5. Obstructive sleep apnea Continue BiPAP therapy with naps and nightly. 6. CODE STATUS Full code following discussion with patient and family. This note was generated with [employer] software. It may contain incorrect words, spelling, and punctuation that were not noted in checking the note before signing. Code Visit Inpatient E&M: 06339 [facility] L2
--- NOTE | 2019-11-18 09:48 | PN.RENAL_ITS ---
Subjective: no new complaints - Physical Exam Vitals/I&O's: Vital Signs Temp Pulse Resp BP Pulse Ox 97.9 F 71 18 105/44 L 97 11/18/19 03:45 11/18/19 07:27 11/18/19 07:27 11/18/19 03:45 11/18/19 07:27 Oxygen Flow Rate (L/min) [3] 6 Oxygen Flow Rate (L/min) [2] 6 Oxygen Flow Rate (L/min) [1 ( 6 Initial Baseline)] Oxygen Flow Rate (L/min) 3 Oxygen Delivery Method [3] Nasal Cannula Oxygen Delivery Method [2] Nasal Cannula Oxygen Delivery Method [1 ( Nasal Cannula Initial Baseline)] Oxygen Delivery Method Bi-pap Weight: 64.2 kg Body Mass Index (BMI) 24.1 Finger Stick Blood Glucose 200 Intake and Output for Last 24 Hours 11/16/19 11/17/19 11/18/19 23:59 23:59 23:59 Intake Total 3106.80 / 3106.80 580 / 580 170 / 170 Output Total 5170 / 5170 1350 / 1350 0 / 0 Balance -2063.20 / -2063.20 -770 / -770 170 / 170 General: Alert, Oriented x3, Cooperative HEENT: Atraumatic, PERRLA, EOMI, Normocephalic Neck: Supple, No JVD, Negative Carotid Bruits Lungs: Clear to auscultation, Normal air movement Cardiovascular: Regular rate, No murmurs Abdomen: Bowel Sounds Present, Soft, Non Tender Extremities: No edema, Capillary Refill Less than 3 Seconds Skin: No rashes, No breakdown Musculoskeletal: No Tenderness to Palpation of Joints or Extremities Neurological: Cranial nerves II-XII grossly intact Psych/Mental Status: Normal Affect, Appropriate Microbiology Past 72 Hours 11/16/19 13:06 Fluid - Pleural (Lung) Gram Stain - Final 11/16/19 13:06 Fluid - Pleural (Lung) Body Fluid Culture - Preliminary No growth-Final to follow 11/15/19 14:40 Mucosa - Nasopharyngeal Respiratory Panel (PCR) - Final Laboratory Results 11/18/19 05:56: WBC 11.5 H, RBC 2.33 L, Hgb 7.3 L, Hct 23.9 L, MCV 102.6 H, MCH 31.3, MCHC 30.5 L, RDW Std Deviation 62.6 H, RDW Coeff of Eleni 16.7 H, Plt Count 174, MPV 10.3 11/18/19 05:56: Sodium 135 L, Potassium 5.5 H, Chloride 102, Carbon Dioxide 26.0, Anion Gap 7, BUN 62 H, Creatinine 5.95 H, Estim Creat Clear Calc 10.34, Est GFR (MDRD) Af Amer 12 L, Est GFR (MDRD) Non-Af 10 L, BUN/Creatinine Ratio 10.4, Glucose 96, Calcium 8.0 L Current Medications Acetaminophen (Tylenol) 650 mg PO Q6H PRN PRN PRN Reason: Pain Score 1-3/Temp > 100.7 F Last Admin: 11/15/19 04:20 Dose: 650 mg Documented by: Albuterol Sulfate (Ventolin Aerosols) 2.5 mg INHALATION Q2H PRN PRN PRN Reason: SOB/Wheezing Albuterol/Ipratropium (Duoneb) 3 ml INHALATION Q4HWA.RT [facility] Last Admin: 11/18/19 07:05 Dose: 3 ml Documented by: Alprazolam (Xanax) 0.5 mg PO TID PRN PRN PRN Reason: ANXIETY Last Admin: 11/17/19 21:39 Dose: 0.5 mg Documented by: Amlodipine Besylate (Norvasc) 2.5 mg PO DAILY [facility] Last Admin: 11/17/19 09:20 Dose: 2.5 mg Documented by: Atorvastatin Calcium (Lipitor) 80 mg PO QHS [facility] Last Admin: 11/17/19 21:40 Dose: 80 mg Documented by: Budesonide (Pulmicort Aerosol) 0.5 mg INHALATION BID.RT [facility] Last Admin: 11/18/19 07:05 Dose: 0.5 mg Documented by: Sodium Chloride () 250 mls @ 15 mls/hr IV .[id number] PRN PRN Reason: Saline Flush Sodium Chloride () 250 mls @ 15 mls/hr IV .[id number] PRN PRN Reason: Additional IVPB Infusion Piperacillin Sod/Tazobactam (Sod 3.375 gm/ Sodium Chloride) 50 mls @ 12.5 mls/hr IV Q12 [facility] Last Infusion: 11/18/19 01:40 Dose: Infused Documented by: Sodium Chloride () 250 mls @ 15 mls/hr IV .[id number] PRN PRN Reason: Saline Flush Sodium Chloride () 250 mls @ 15 mls/hr IV .[id number] PRN PRN Reason: Additional IVPB Infusion Metoprolol Succinate (Toprol Xl (Beta Kadi)) 50 mg PO BID [facility] Last Admin: 11/17/19 21:40 Dose: 50 mg Documented by: Ondansetron HCl (Zofran) 4 mg IV Q8H PRN PRN PRN Reason: NAUSEA/VOMITING Last Admin: 11/16/19 22:17 Dose: 4 mg Documented by: Pantoprazole Sodium (Protonix) 20 mg PO BID [facility] Last Admin: 11/17/19 21:39 Dose: 20 mg Documented by: Senna/Docusate Sodium (Senokot-S, Eveline-Colace) 2 tablet PO BID PRN PRN PRN Reason: Constipation Sodium Chloride () 10 - 40 ml IV UD PRN PRN Reason: SALINE FLUSH Last Admin: 11/15/19 15:59 Dose: 10 ml Documented by: Tamsulosin HCl (Flomax) 0.4 mg PO DAILY [facility] Last Admin: 11/17/19 09:20 Dose: 0.4 mg Documented by: Medical Necessity - Tobacco Use Smoking Status: Former smoker Assessment/Plan 1. ESRD, HD 5 days a week at home. Pt can only tolerate 2 L UF per his . HD tomorrow 2. Dyspnea. Has a history of COPD. Also has history of HFpEF. He has BL pleural effusion. Had right thoracocentesis 11/16 with 1300 cc fluid removal another tap tomorrow 3. HTN. BP is well controlled 4. Anemia. No obvious history of acute blood loss.
--- NOTE | 2019-11-18 10:01 | NURSING ---
Dr. Salazar phones and speaks with patient's over the phone.
[2019-11-18] MEDS: amLODIPine 2.5 MG Tablet PO (10:33)
[2019-11-18] MEDS: Pantoprazole Sodium 20 MG Tablet PO ×2 (10:33→21:37)
[2019-11-18] MEDS: Tamsulosin HCl 0.4 MG Capsule PO (10:33)
[2019-11-18] MEDS: Metoprolol(XL)Succ 50 MG Tablet PO ×2 (10:33→21:36)
[2019-11-18] MEDS: 0.9% Saline Lock 10 ML Syringe IV (10:34)
--- NOTE | 2019-11-18 12:03 | PCM.PROGNOTE ---
<Haven Carlson - Last Filed: 11/18/19 12:08> Subjective: Patient seen and examined. Reports increased shortness of breath this morning. Currently on BiPAP. at bedside, no additional concerns at this time. - Physical Exam Vitals/I&O's: Vital Signs Temp Pulse Resp BP Pulse Ox 98.0 F 96 25 H 114/65 93 11/18/19 09:55 11/18/19 11:01 11/18/19 11:01 11/18/19 10:33 11/18/19 09:55 Oxygen Flow Rate (L/min) [3] 6 Oxygen Flow Rate (L/min) [2] 6 Oxygen Flow Rate (L/min) [1 ( 6 Initial Baseline)] Oxygen Flow Rate (L/min) 3 Oxygen Delivery Method [3] Nasal Cannula Oxygen Delivery Method [2] Nasal Cannula Oxygen Delivery Method [1 ( Nasal Cannula Initial Baseline)] Oxygen Delivery Method Nasal Cannula Weight: 141 lb 8.588 oz Body Mass Index (BMI) 24.1 Finger Stick Blood Glucose 200 Intake and Output for Last 24 Hours 11/16/19 11/17/19 11/18/19 23:59 23:59 23:59 Intake Total 3106.80 / 3106.80 580 / 580 900 / 900 Output Total 5170 / 5170 1350 / 1350 250 / 250 Balance -3.20 / -2062.20 -770 / -770 650 / 650 General: Alert, Oriented x3, Cooperative HEENT: Atraumatic, PERRLA, EOMI, Normocephalic Neck: Supple, No JVD, Negative Carotid Bruits Lungs: Clear to auscultation, Diminished Cardiovascular: Regular rate, Regular Rhythm, Normal S1, Normal S2, No murmurs Abdomen: Bowel Sounds Present, Soft, Non Tender, Non-Distended Extremities: No clubbing, No cyanosis, No edema, Capillary Refill Less than 3 Seconds Skin: No rashes, No breakdown Musculoskeletal: No Tenderness to Palpation of Joints or Extremities Neurological: Cranial nerves II-XII grossly intact, Neuro grossly intact Psych/Mental Status: Anxious Microbiology Past 72 Hours 11/16/19 13:06 Fluid - Pleural (Lung) Gram Stain - Final 11/16/19 13:06 Fluid - Pleural (Lung) Body Fluid Culture - Preliminary No growth-Final to follow 11/15/19 14:40 Mucosa - Nasopharyngeal Respiratory Panel (PCR) - Final Laboratory Results 11/18/19 05:56: WBC 11.5 H, RBC 2.33 L, Hgb 7.3 L, Hct 23.9 L, MCV 102.6 H, MCH 31.3, MCHC 30.5 L, RDW Std Deviation 62.6 H, RDW Coeff of Eleni 16.7 H, Plt Count 174, MPV 10.3 11/18/19 05:56: Sodium 135 L, Potassium 5.5 H, Chloride 102, Carbon Dioxide 26.0, Anion Gap 7, BUN 62 H, Creatinine 5.95 H, Estim Creat Clear Calc 10.34, Est GFR (MDRD) Af Amer 12 L, Est GFR (MDRD) Non-Af 10 L, BUN/Creatinine Ratio 10.4, Glucose 96, Calcium 8.0 L Current Medications Acetaminophen (Tylenol) 650 mg PO Q6H PRN PRN PRN Reason: Pain Score 1-3/Temp > 100.7 F Last Admin: 11/15/19 04:20 Dose: 650 mg Documented by: Albuterol Sulfate (Ventolin Aerosols) 2.5 mg INHALATION Q2H PRN PRN PRN Reason: SOB/Wheezing Albuterol/Ipratropium (Duoneb) 3 ml INHALATION Q4HWA.RT [facility] Last Admin: 11/18/19 11:01 Dose: 3 ml Documented by: Alprazolam (Xanax) 0.5 mg PO TID PRN PRN PRN Reason: ANXIETY Last Admin: 11/17/19 21:39 Dose: 0.5 mg Documented by: Amlodipine Besylate (Norvasc) 2.5 mg PO DAILY [facility] Last Admin: 11/18/19 10:33 Dose: 2.5 mg Documented by: Atorvastatin Calcium (Lipitor) 80 mg PO QHS [facility] Last Admin: 11/17/19 21:40 Dose: 80 mg Documented by: Budesonide (Pulmicort Aerosol) 0.5 mg INHALATION BID.RT [facility] Last Admin: 11/18/19 07:05 Dose: 0.5 mg Documented by: Sodium Chloride () 250 mls @ 15 mls/hr IV .[id number] PRN PRN Reason: Saline Flush Sodium Chloride () 250 mls @ 15 mls/hr IV .[id number] PRN PRN Reason: Additional IVPB Infusion Piperacillin Sod/Tazobactam (Sod 3.375 gm/ Sodium Chloride) 50 mls @ 12.5 mls/hr IV Q12 [facility] Last Admin: 11/18/19 10:33 Dose: 12.5 mls/hr Documented by: Sodium Chloride () 250 mls @ 15 mls/hr IV .[id number] PRN PRN Reason: Saline Flush Sodium Chloride () 250 mls @ 15 mls/hr IV .[id number] PRN PRN Reason: Additional IVPB Infusion Metoprolol Succinate (Toprol Xl (Beta Kadi)) 50 mg PO BID [facility] Last Admin: 11/18/19 10:33 Dose: 50 mg Documented by: Ondansetron HCl (Zofran) 4 mg IV Q8H PRN PRN PRN Reason: NAUSEA/VOMITING Last Admin: 11/16/19 22:17 Dose: 4 mg Documented by: Pantoprazole Sodium (Protonix) 20 mg PO BID [facility] Last Admin: 11/18/19 10:33 Dose: 20 mg Documented by: Senna/Docusate Sodium (Senokot-S, Eveline-Colace) 2 tablet PO BID PRN PRN PRN Reason: Constipation Sodium Chloride () 10 - 40 ml IV UD PRN PRN Reason: SALINE FLUSH Last Admin: 11/18/19 10:34 Dose: 10 ml Documented by: Tamsulosin HCl (Flomax) 0.4 mg PO DAILY [facility] Last Admin: 11/18/19 10:33 Dose: 0.4 mg Documented by: Medical Necessity - Tobacco Use Smoking Status: Former smoker Assessment/Plan 1. Acute on chronic hypoxic respiratory failure secondary to acute on chronic heart failure with preserved ejection fraction with associated bilateral pleural effusions as well as severe underlying COPD without current exacerbation-continue supplement oxygen to maintain O2 at or above 90%. Patient underwent ultrasound-guided right-sided thoracentesis 11/16/2019 with removal of 1.3 L fluid, pleural fluid appears exudative in nature. Cultures and cytology pending. Pulmonary medicine recommending continuing empiric antibiotics pending final cultures. Continue IV Zosyn. If pleural effusions are persistent despite dialysis, patient may be considered for Pleurx catheter placement. Echocardiogram demonstrates an EF of 55%, large left pleural effusion. Repeat chest x-ray given report of increased shortness of breath this morning. 2. Chronic severe COPD-no acute exacerbation. As needed albuterol aerosols. 3. End-stage renal disease on hemodialysis-nephrology following. Continue dialysis per nephrology recommendations. 4. Acute on chronic iron deficiency anemia/anemia of chronic disease-trend CBC, transfuse for hemoglobin less than 7. 5. CAD status post CABG X3-continue statin, metoprolol. Aspirin on hold given acute anemia. 6. BPH-continue Flomax regimen. 7. Hypertension-stable, continue metoprolol regimen. 8. History of colonic ischemia/history of GI bleed-November 2017 patient had a ischemic right colon and proximal transverse colon and underwent ileostomy. Continue PPI. 9. Anxiety-uncontrolled. Continue home Xanax regimen however recommend discussion with primary care physician on long-term agent for further anxiety control. 10. PAD-continue statin, aspirin on hold. 11. Hyperlipidemia-continue statin regimen. 12. RAVEN-continue BiPAP nightly and PRN. DVT prophylaxis-SCDs. Pharmacologic prophylaxis contraindicated due to anemia. This patient was seen by SEUN Obregon under the supervision of Dr. Mulligan. <Kai Mulligan F - Last Filed: 11/18/19 18:01> - Physical Exam Vitals/I&O's: Vital Signs Temp Pulse Resp BP Pulse Ox 98.7 F 71 24 H 108/42 L 100 11/18/19 15:00 11/18/19 15:38 11/18/19 15:14 11/18/19 15:00 11/18/19 15:00 Oxygen Flow Rate (L/min) [3] 6 Oxygen Flow Rate (L/min) [2] 6 Oxygen Flow Rate (L/min) [1 ( 6 Initial Baseline)] Oxygen Flow Rate (L/min) 3 Oxygen Delivery Method [3] Nasal Cannula Oxygen Delivery Method [2] Nasal Cannula Oxygen Delivery Method [1 ( Nasal Cannula Initial Baseline)] Oxygen Delivery Method Bi-pap Weight: 141 lb 8.588 oz Body Mass Index (BMI) 24.1 Finger Stick Blood Glucose 200 Intake and Output for Last 24 Hours 11/16/19 11/17/19 11/18/19 23:59 23:59 23:59 Intake Total 3106.80 / 3106.80 580 / 580 1310 / 1310 Output Total 5170 / 5170 1350 / 1350 450 / 450 Balance -2063.20 / -2062.20 -770 / -770 860 / 860 Microbiology Past 72 Hours 11/16/19 13:06 Fluid - Pleural (Lung) Gram Stain - Final 11/16/19 13:06 Fluid - Pleural (Lung) Body Fluid Culture - Preliminary No growth-Final to follow 11/15/19 14:40 Mucosa - Nasopharyngeal Respiratory Panel (PCR) - Final Laboratory Results 11/18/19 05:56: WBC 11.5 H, RBC 2.33 L, Hgb 7.3 L, Hct 23.9 L, MCV 102.6 H, MCH 31.3, MCHC 30.5 L, RDW Std Deviation 62.6 H, RDW Coeff of Eleni 16.7 H, Plt Count 174, MPV 10.3 11/18/19 05:56: Sodium 135 L, Potassium 5.5 H, Chloride 102, Carbon Dioxide 26.0, Anion Gap 7, BUN 62 H, Creatinine 5.95 H, Estim Creat Clear Calc 10.34, Est GFR (MDRD) Af Amer 12 L, Est GFR (MDRD) Non-Af 10 L, BUN/Creatinine Ratio 10.4, Glucose 96, Calcium 8.0 L Current Medications Acetaminophen (Tylenol) 650 mg PO Q6H PRN PRN PRN Reason: Pain Score 1-3/Temp > 100.7 F Last Admin: 11/15/19 04:20 Dose: 650 mg Documented by: Albuterol Sulfate (Ventolin Aerosols) 2.5 mg INHALATION Q2H PRN PRN PRN Reason: SOB/Wheezing Albuterol/Ipratropium (Duoneb) 3 ml INHALATION Q4HWA.RT [facility] Last Admin: 11/18/19 15:14 Dose: 3 ml Documented by: Alprazolam (Xanax) 0.5 mg PO TID PRN PRN PRN Reason: ANXIETY Last Admin: 11/17/19 21:39 Dose: 0.5 mg Documented by: Amlodipine Besylate (Norvasc) 2.5 mg PO DAILY [facility] Last Admin: 11/18/19 10:33 Dose: 2.5 mg Documented by: Atorvastatin Calcium (Lipitor) 80 mg PO QHS [facility] Last Admin: 11/17/19 21:40 Dose: 80 mg Documented by: Budesonide (Pulmicort Aerosol) 0.5 mg INHALATION BID.RT [facility] Last Admin: 11/18/19 07:05 Dose: 0.5 mg Documented by: Sodium Chloride () 250 mls @ 15 mls/hr IV .[id number] PRN PRN Reason: Saline Flush Sodium Chloride () 250 mls @ 15 mls/hr IV .[id number] PRN PRN Reason: Additional IVPB Infusion Piperacillin Sod/Tazobactam (Sod 3.375 gm/ Sodium Chloride) 50 mls @ 12.5 mls/hr IV Q12 [facility] Last Infusion: 11/18/19 14:40 Dose: Infused Documented by: Sodium Chloride () 250 mls @ 15 mls/hr IV .[id number] PRN PRN Reason: Saline Flush Sodium Chloride () 250 mls @ 15 mls/hr IV .[id number] PRN PRN Reason: Additional IVPB Infusion Metoprolol Succinate (Toprol Xl (Beta Kadi)) 50 mg PO BID [facility] Last Admin: 11/18/19 10:33 Dose: 50 mg Documented by: Ondansetron HCl (Zofran) 4 mg IV Q8H PRN PRN PRN Reason: NAUSEA/VOMITING Last Admin: 11/16/19 22:17 Dose: 4 mg Documented by: Pantoprazole Sodium (Protonix) 20 mg PO BID [facility] Last Admin: 11/18/19 10:33 Dose: 20 mg Documented by: Senna/Docusate Sodium (Senokot-S, Eveline-Colace) 2 tablet PO BID PRN PRN PRN Reason: Constipation Sodium Chloride () 10 - 40 ml IV UD PRN PRN Reason: SALINE FLUSH Last Admin: 11/18/19 10:34 Dose: 10 ml Documented by: Tamsulosin HCl (Flomax) 0.4 mg PO DAILY [facility] Last Admin: 11/18/19 10:33 Dose: 0.4 mg Documented by: Code Visit Addendum: Dr. Mulligan I personally examined the patient and reviewed the chart. I agree with the above. 69-year-old male with acute on chronic hypoxic respiratory failure secondary to chronic diastolic heart failure presents with shortness of breath. He had a thoracentesis on the right and the aeration on repeat chest x-ray looks pretty good. However he still has fluid on the left and may need another thoracentesis tomorrow. He does undergo dialysis but does have some urine production so we will continue with Lasix. Appreciate pulmonary input in his management, at the moment we will continue with his inhalers for COPD as well as BiPAP. Inpatient E&M: 90275 Subs Hosp L2
--- NOTE | 2019-11-18 12:10 | RAD_ITS ---
STUDY: X-RAY CHEST REASON FOR EXAM: Male, 69 years old. Shortness of breath, acute on chronic CHF and respiratory failure. TECHNIQUE: Single AP portable view of the chest. COMPARISON: 11/16/2019. FINDINGS: There is markedly improved bilateral infiltrates/edema. There is continued small bilateral pleural effusions. Sternal cerclage wires and vascular clips are present from a prior sternotomy and coronary artery bypass graft procedure (CABG). The cardiac silhouette is prominent. Normal mediastinum and justyn. Normal visualized pulmonary arteries. There is atherosclerotic calcification of the aortic arch with tortuosity. Stable bone structures. There is no demonstrated abnormality of the visualized soft tissue structures of the upper abdomen. RAD/Chest 1 View (Portable) IMPRESSION: Improved bilateral infiltrates/edema. Electronically Signed: Chato Holloway MD at 12:31 EST Tel , Service support ,
[2019-11-18] MEDS: Atorvastatin Calcium 80 MG Tablet PO (21:37)
[2019-11-18] MEDS: ALPRAZolam 0.5 MG Tablet PO (21:37)
[2019-11-18] MEDS: Ondansetron 4 MG/2 ML Vial IV (22:26)
[2019-11-19] VITALS (21 sets, daily range): BP systolic 105–126; BP diastolic 42–54; PULSE 66–88; RESP 12–29; TEMP 35.8–36.9; O2SAT 92–100
[2019-11-19 06:43] LABS: Hematocrit 24.1 % (40-54); Hemoglobin 7.2 g/dL (13.0-16.5); Mean Corp Hgb Conc 29.9 g/dL (32-36); Mean Corpuscular Hgb 30.9 pg (27.0-32.0); Mean Corpuscular Volume 103.4 fL (80-94); Mean Platelet Vol. 10.3 fl (6.2-12.0); Platelet Count 176 K/mm3 (150-450); RBC Distribution Width CV 16.5 % (11.6-14.6); RBC Distribution Width SD 63.1 fl (35.1-43.9); Red Blood Count 2.33 M/mm3 (4.6-6.2); White Blood Count 12.1 K/mm3 (4.4-11.0)
[2019-11-19 07:00] LABS: Anion Gap 7 (5-15); BUN 80 mg/dL (7-18); BUN/Creat Ratio 10.6 RATIO (10-20); Calcium,Total 8.7 mg/dL (8.5-10.1); Chloride 103 mmol/L (98-107); Creatinine, Serum 7.56 mg/dL (0.70-1.30); EST Glomerular Filtration Rate 8 mL/min (>60); Est Glom Filt Rate - Afr Amer 9 mL/min (>60); Estimated Creatinine Clearance 8.13 ml/min; Glucose 96 mg/dL (74-106); Potassium 6.4 mmol/L (3.5-5.1); Sodium Level 134 mmol/L (136-145)
[2019-11-19] MEDS: Budesonide Respules 0.5 MG/2 ML AMPUL.NEB. INHALATION ×2 (07:18→19:55)
[2019-11-19] MEDS: Ipratropium/Albuterol Sulfate 3 ML AMPUL.NEB INHALATION ×4 (07:18→19:55)
--- NOTE | 2019-11-19 09:28 | PN_ITS ---
Subjective: Patient did okay overnight. Patient was on BiPAP during my evaluation this morning and was still reporting dyspnea. Patient did not receive hemodialysis over the weekend. Patient reportedly was on 3 L nasal cannula yesterday and tolerating well. - Physical Exam Vitals/I&O's: Vital Signs Temp Pulse Resp BP Pulse Ox 35.8 C L 66 12 116/47 L 100 11/19/19 09:00 11/19/19 09:00 11/19/19 09:00 11/19/19 09:00 11/19/19 07:18 Oxygen Flow Rate (L/min) [3] 6 Oxygen Flow Rate (L/min) [2] 6 Oxygen Flow Rate (L/min) [1 ( 6 Initial Baseline)] Oxygen Flow Rate (L/min) 3 Oxygen Delivery Method [3] Nasal Cannula Oxygen Delivery Method [2] Nasal Cannula Oxygen Delivery Method [1 ( Nasal Cannula Initial Baseline)] Oxygen Delivery Method Bi-pap Weight: 68 kg Body Mass Index (BMI) 24.1 Finger Stick Blood Glucose 200 Intake and Output for Last 24 Hours 11/17/19 11/18/19 11/19/19 23:59 23:59 23:59 Intake Total 580 / 580 1310 / 1310 50 / 50 Output Total 1350 / 1350 450 / 450 Balance -770 / -770 860 / 860 50 / 50 General: Alert, Oriented x3, Cooperative, - - Mild to moderate conversational dyspnea. On BiPAP. Appears older than stated age. HEENT: Atraumatic, PERRLA, EOMI, - - Slight scleral injection noted. Oral: No Gingival or Mucosal Lesions/ Ulcerations, Dry Mucosa Neck: Supple, No Nodes, Trachea Midline, JVD, Right Lungs: No rhonchi, No wheeze, No rales, Diminished - Left greater than right base, - - Chest x-ray was reviewed showing left effusion Cardiovascular: Normal S1, Normal S2, No murmurs, Irregular Rate, No rub noted, No Gallop Abdomen: Bowel Sounds Present, Soft, Non Tender, Non-Distended Extremities: No cyanosis, Clubbing, Edema Skin: No rashes, No breakdown Musculoskeletal: No Tenderness to Palpation of Joints or Extremities Lymphatic: No Cervical, Supraclavicular, or Inguinal Adenopathy Neurological: Cranial nerves II-XII grossly intact, Neuro grossly intact, Motor Exam 5/5 strength throughout Psych/Mental Status: Alert and oriented to time, place, person, mood and affect Microbiology Past 72 Hours 11/16/19 13:06 Fluid - Pleural (Lung) Gram Stain - Final 11/16/19 13:06 Fluid - Pleural (Lung) Body Fluid Culture - Preliminary No growth-Final to follow Laboratory Results 11/19/19 06:05: WBC 12.1 H, RBC 2.33 L, Hgb 7.2 L, Hct 24.1 L, MCV 103.4 H, MCH 30.9, MCHC 29.9 L, RDW Std Deviation 63.1 H, RDW Coeff of Eleni 16.5 H, Plt Count 176, MPV 10.3 11/19/19 06:05: Sodium 134 L, Potassium 6.4 H*, Chloride 103, Carbon Dioxide 24.0, Anion Gap 7, BUN 80 H, Creatinine 7.56 H*, Estim Creat Clear Calc 8.13, Est GFR (MDRD) Af Amer 9 L, Est GFR (MDRD) Non-Af 8 L, BUN/Creatinine Ratio 10.6, Glucose 96, Calcium 8.7 Current Medications Acetaminophen (Tylenol) 650 mg PO Q6H PRN PRN PRN Reason: Pain Score 1-3/Temp > 100.7 F Last Admin: 11/15/19 04:20 Dose: 650 mg Documented by: Albuterol Sulfate (Ventolin Aerosols) 2.5 mg INHALATION Q2H PRN PRN PRN Reason: SOB/Wheezing Albuterol/Ipratropium (Duoneb) 3 ml INHALATION Q4HWA.RT [facility] Last Admin: 11/19/19 07:18 Dose: 3 ml Documented by: Alprazolam (Xanax) 0.5 mg PO TID PRN PRN PRN Reason: ANXIETY Last Admin: 11/18/19 21:37 Dose: 0.5 mg Documented by: Amlodipine Besylate (Norvasc) 2.5 mg PO DAILY [facility] Last Admin: 11/18/19 10:33 Dose: 2.5 mg Documented by: Atorvastatin Calcium (Lipitor) 80 mg PO QHS [facility] Last Admin: 11/18/19 21:37 Dose: 80 mg Documented by: Budesonide (Pulmicort Aerosol) 0.5 mg INHALATION BID.RT [facility] Last Admin: 11/19/19 07:18 Dose: 0.5 mg Documented by: Sodium Chloride () 250 mls @ 15 mls/hr IV .[id number] PRN PRN Reason: Saline Flush Sodium Chloride () 250 mls @ 15 mls/hr IV .[id number] PRN PRN Reason: Additional IVPB Infusion Piperacillin Sod/Tazobactam (Sod 3.375 gm/ Sodium Chloride) 50 mls @ 12.5 mls/hr IV Q12 [facility] Last Infusion: 11/19/19 01:37 Dose: Infused Documented by: Sodium Chloride () 250 mls @ 15 mls/hr IV .[id number] PRN PRN Reason: Saline Flush Sodium Chloride () 250 mls @ 15 mls/hr IV .[id number] PRN PRN Reason: Additional IVPB Infusion Metoprolol Succinate (Toprol Xl (Beta Kadi)) 50 mg PO BID [facility] Last Admin: 11/18/19 21:36 Dose: 50 mg Documented by: Ondansetron HCl (Zofran) 4 mg IV Q8H PRN PRN PRN Reason: NAUSEA/VOMITING Last Admin: 11/18/19 22:26 Dose: 4 mg Documented by: Pantoprazole Sodium (Protonix) 20 mg PO BID [facility] Last Admin: 11/18/19 21:37 Dose: 20 mg Documented by: Senna/Docusate Sodium (Senokot-S, Eveline-Colace) 2 tablet PO BID PRN PRN PRN Reason: Constipation Sodium Chloride () 10 - 40 ml IV UD PRN PRN Reason: SALINE FLUSH Last Admin: 11/18/19 10:34 Dose: 10 ml Documented by: Tamsulosin HCl (Flomax) 0.4 mg PO DAILY [facility] Last Admin: 11/18/19 10:33 Dose: 0.4 mg Documented by: Clinical Impression(s) from Imaging Studies Chest X-Ray 11/18/19 12:10 IMPRESSION: Improved bilateral infiltrates/edema. Electronically Signed: Chato Holloway MD at 12:31 EST Tel , Service support , Medical Necessity - Tobacco Use Smoking Status: Former smoker Assessment/Plan RECOMMENDATIONS: 1. Continue volume optimization with hemodialysis per nephrology recommendations. 2. Transfuse to maintain a hemoglobin at or above 7 g/dL. 3. Continue BiPAP therapy with naps and nightly. 4. Continue empiric antimicrobials, pending results of pleural fluid studies. 5. Wean supplemental oxygen to maintain saturations at or above 90%. Encourage incentive spirometer use and mobilize patient as tolerated. IMPRESSIONS: 1. Acute on chronic hypoxemic respiratory failure/known history of severe obstructive lung disease Patient's pleural fluid is suggestive of exudative process. Microbiology and cytology are still pending. Will await the results of these findings. Patient does have some increased respiratory distress today compared to , but this may be secondary to fluid retention. Patient is to have hemodialysis today. Would continue empiric antibiotics pending infectious work- up. Patient could have a repeat thoracentesis on the left for optimization. If this were completed, would send for diagnostic studies. 2. Acute on chronic anemia The patient does have a history of prior GI bleed. Continue PPI therapy as ordered. Monitor H&H and transfuse to maintain a hemoglobin at or above 7 g/dL. 3. End-stage renal disease Nephrology following to assist with dialysis management. 4. Coronary artery disease/atrial fibrillation/peripheral vascular disease Continue baseline medication regimen. 5. Obstructive sleep apnea Continue BiPAP therapy with naps and nightly. 6. CODE STATUS Full code following discussion with patient and family. Code Visit Inpatient E&M: 30636 Subs Hosp L2
[2019-11-19] MEDS: Epoetin Alfa epbx 10,000 UNITS/ML 4000 UNIT IV (09:50)
--- NOTE | 2019-11-19 10:52 | PCM.PN.REN ---
Subjective: no new events - Physical Exam Vitals/I&O's: Vital Signs Temp Pulse Resp BP Pulse Ox 96.5 F L 66 12 116/47 L 98 11/19/19 09:00 11/19/19 09:00 11/19/19 09:00 11/19/19 09:00 11/19/19 08:55 Oxygen Flow Rate (L/min) [3] 6 Oxygen Flow Rate (L/min) [2] 6 Oxygen Flow Rate (L/min) [1 ( 6 Initial Baseline)] Oxygen Flow Rate (L/min) 3 Oxygen Delivery Method [3] Nasal Cannula Oxygen Delivery Method [2] Nasal Cannula Oxygen Delivery Method [1 ( Nasal Cannula Initial Baseline)] Oxygen Delivery Method Bi-pap Weight: 68 kg Body Mass Index (BMI) 24.1 Finger Stick Blood Glucose 200 Intake and Output for Last 24 Hours 11/17/19 11/18/19 11/19/19 23:59 23:59 23:59 Intake Total 580 / 580 1310 / 1310 50 / 50 Output Total 1350 / 1350 450 / 450 Balance -770 / -770 860 / 860 50 / 50 General: Alert, Oriented x3, Cooperative HEENT: Atraumatic, PERRLA, EOMI, Normocephalic Neck: Supple, No JVD, Negative Carotid Bruits Lungs: Clear to auscultation, Normal air movement Cardiovascular: Regular rate, No murmurs Abdomen: Bowel Sounds Present, Soft, Non Tender Extremities: No edema, Capillary Refill Less than 3 Seconds Skin: No rashes, No breakdown Musculoskeletal: No Tenderness to Palpation of Joints or Extremities Neurological: Cranial nerves II-XII grossly intact Psych/Mental Status: Normal Affect, Appropriate Microbiology Past 72 Hours 11/16/19 13:06 Fluid - Pleural (Lung) Gram Stain - Final 11/16/19 13:06 Fluid - Pleural (Lung) Body Fluid Culture - Preliminary No growth-Final to follow Laboratory Results 11/19/19 06:05: WBC 12.1 H, RBC 2.33 L, Hgb 7.2 L, Hct 24.1 L, MCV 103.4 H, MCH 30.9, MCHC 29.9 L, RDW Std Deviation 63.1 H, RDW Coeff of Eleni 16.5 H, Plt Count 176, MPV 10.3 11/19/19 06:05: Sodium 134 L, Potassium 6.4 H*, Chloride 103, Carbon Dioxide 24.0, Anion Gap 7, BUN 80 H, Creatinine 7.56 H*, Estim Creat Clear Calc 8.13, Est GFR (MDRD) Af Amer 9 L, Est GFR (MDRD) Non-Af 8 L, BUN/Creatinine Ratio 10.6, Glucose 96, Calcium 8.7 Current Medications Acetaminophen (Tylenol) 650 mg PO Q6H PRN PRN PRN Reason: Pain Score 1-3/Temp > 100.7 F Last Admin: 11/15/19 04:20 Dose: 650 mg Documented by: Albuterol Sulfate (Ventolin Aerosols) 2.5 mg INHALATION Q2H PRN PRN PRN Reason: SOB/Wheezing Albuterol/Ipratropium (Duoneb) 3 ml INHALATION Q4HWA.RT [facility] Last Admin: 11/19/19 07:18 Dose: 3 ml Documented by: Alprazolam (Xanax) 0.5 mg PO TID PRN PRN PRN Reason: ANXIETY Last Admin: 11/18/19 21:37 Dose: 0.5 mg Documented by: Amlodipine Besylate (Norvasc) 2.5 mg PO DAILY [facility] Last Admin: 11/18/19 10:33 Dose: 2.5 mg Documented by: Atorvastatin Calcium (Lipitor) 80 mg PO QHS [facility] Last Admin: 11/18/19 21:37 Dose: 80 mg Documented by: Budesonide (Pulmicort Aerosol) 0.5 mg INHALATION BID.RT [facility] Last Admin: 11/19/19 07:18 Dose: 0.5 mg Documented by: Sodium Chloride () 250 mls @ 15 mls/hr IV .[id number] PRN PRN Reason: Saline Flush Sodium Chloride () 250 mls @ 15 mls/hr IV .[id number] PRN PRN Reason: Additional IVPB Infusion Piperacillin Sod/Tazobactam (Sod 3.375 gm/ Sodium Chloride) 50 mls @ 12.5 mls/hr IV Q12 [facility] Last Infusion: 11/19/19 01:37 Dose: Infused Documented by: Sodium Chloride () 250 mls @ 15 mls/hr IV .[id number] PRN PRN Reason: Saline Flush Sodium Chloride () 250 mls @ 15 mls/hr IV .[id number] PRN PRN Reason: Additional IVPB Infusion Metoprolol Succinate (Toprol Xl (Beta Kadi)) 50 mg PO BID [facility] Last Admin: 11/18/19 21:36 Dose: 50 mg Documented by: Ondansetron HCl (Zofran) 4 mg IV Q8H PRN PRN PRN Reason: NAUSEA/VOMITING Last Admin: 11/18/19 22:26 Dose: 4 mg Documented by: Pantoprazole Sodium (Protonix) 20 mg PO BID [facility] Last Admin: 11/18/19 21:37 Dose: 20 mg Documented by: Senna/Docusate Sodium (Senokot-S, Eveline-Colace) 2 tablet PO BID PRN PRN PRN Reason: Constipation Sodium Chloride () 10 - 40 ml IV UD PRN PRN Reason: SALINE FLUSH Last Admin: 11/18/19 10:34 Dose: 10 ml Documented by: Tamsulosin HCl (Flomax) 0.4 mg PO DAILY [facility] Last Admin: 11/18/19 10:33 Dose: 0.4 mg Documented by: Medical Necessity - Tobacco Use Smoking Status: Former smoker Assessment/Plan 1. ESRD, HD 5 days a week at home. seen on HD today. he is reading about 4 Kg above EDW. try for 2-3 L today 2. Dyspnea. Has a history of COPD. Also has history of HFpEF. He has BL pleural effusion. Had right thoracocentesis 11/16 with 1300 cc fluid removal for thoracocentesis today 3. HTN. BP is well controlled 4. Anemia. No obvious history of acute blood loss currently. RITCHIE with HD.
--- NOTE | 2019-11-19 11:40 | CPS ---
Patient on Bipap, PEP not done.
[2019-11-19] MEDS: Tamsulosin HCl 0.4 MG Capsule PO (11:59)
[2019-11-19] MEDS: Metoprolol(XL)Succ 50 MG Tablet PO ×2 (11:59→21:38)
[2019-11-19] MEDS: Pantoprazole Sodium 20 MG Tablet PO ×2 (12:00→21:37)
[2019-11-19] MEDS: amLODIPine 2.5 MG Tablet PO (12:00)
--- NOTE | 2019-11-19 12:30 | CPS ---
RN reported taking patient off BiPAP after completion of dialysis.
[2019-11-19 13:12] LABS: Pathologist Comment/Body Fluid Reviewed
--- NOTE | 2019-11-19 13:26 | PCM.PROGNOTE ---
<Haven Carlson - Last Filed: 11/19/19 13:31> Subjective: Patient seen and examined. On BiPAP and undergoing dialysis. Denies significant shortness of breath although feels more comfortable wearing BiPAP. - Physical Exam Vitals/I&O's: Vital Signs Temp Pulse Resp BP Pulse Ox 98.1 F 69 27 H 126/54 H 99 11/19/19 11:40 11/19/19 11:59 11/19/19 11:40 11/19/19 11:40 11/19/19 11:40 Oxygen Flow Rate (L/min) [3] 6 Oxygen Flow Rate (L/min) [2] 6 Oxygen Flow Rate (L/min) [1 ( 6 Initial Baseline)] Oxygen Flow Rate (L/min) 3 Oxygen Delivery Method [3] Nasal Cannula Oxygen Delivery Method [2] Nasal Cannula Oxygen Delivery Method [1 ( Nasal Cannula Initial Baseline)] Oxygen Delivery Method Bi-pap Weight: 149 lb 14.629 oz Body Mass Index (BMI) 24.1 Finger Stick Blood Glucose 200 Intake and Output for Last 24 Hours 11/17/19 11/18/19 11/19/19 23:59 23:59 23:59 Intake Total 580 / 580 1310 / 1310 50 / 50 Output Total 1350 / 1350 450 / 450 2500 / 2500 Balance -770 / -770 860 / 860 -2450 / -2450 General: Alert, Oriented x3, Cooperative HEENT: Atraumatic, PERRLA, EOMI, Normocephalic Neck: Supple, No JVD, Negative Carotid Bruits Lungs: Clear to auscultation, Diminished Cardiovascular: Regular rate, Regular Rhythm, Normal S1, Normal S2, No murmurs Abdomen: Bowel Sounds Present, Soft, Non Tender, Non-Distended Extremities: No clubbing, No cyanosis, No edema, Capillary Refill Less than 3 Seconds Skin: No rashes, No breakdown Musculoskeletal: No Tenderness to Palpation of Joints or Extremities Neurological: Cranial nerves II-XII grossly intact, Neuro grossly intact Psych/Mental Status: Anxious Microbiology Past 72 Hours 11/16/19 13:06 Fluid - Pleural (Lung) Gram Stain - Final 11/16/19 13:06 Fluid - Pleural (Lung) Body Fluid Culture - Preliminary No growth-Final to follow Laboratory Results 11/16/19 13:06: Fl Pathologist Comment Reviewed 11/19/19 06:05: WBC 12.1 H, RBC 2.33 L, Hgb 7.2 L, Hct 24.1 L, MCV 103.4 H, MCH 30.9, MCHC 29.9 L, RDW Std Deviation 63.1 H, RDW Coeff of Eleni 16.5 H, Plt Count 176, MPV 10.3 11/19/19 06:05: Sodium 134 L, Potassium 6.4 H*, Chloride 103, Carbon Dioxide 24.0, Anion Gap 7, BUN 80 H, Creatinine 7.56 H*, Estim Creat Clear Calc 8.13, Est GFR (MDRD) Af Amer 9 L, Est GFR (MDRD) Non-Af 8 L, BUN/Creatinine Ratio 10.6, Glucose 96, Calcium 8.7 Current Medications Acetaminophen (Tylenol) 650 mg PO Q6H PRN PRN PRN Reason: Pain Score 1-3/Temp > 100.7 F Last Admin: 11/15/19 04:20 Dose: 650 mg Documented by: Albuterol Sulfate (Ventolin Aerosols) 2.5 mg INHALATION Q2H PRN PRN PRN Reason: SOB/Wheezing Albuterol/Ipratropium (Duoneb) 3 ml INHALATION Q4HWA.RT [facility] Last Admin: 11/19/19 12:48 Dose: 3 ml Documented by: Alprazolam (Xanax) 0.5 mg PO TID PRN PRN PRN Reason: ANXIETY Last Admin: 11/18/19 21:37 Dose: 0.5 mg Documented by: Amlodipine Besylate (Norvasc) 2.5 mg PO DAILY [facility] Last Admin: 11/19/19 12:00 Dose: 2.5 mg Documented by: Atorvastatin Calcium (Lipitor) 80 mg PO QHS [facility] Last Admin: 11/18/19 21:37 Dose: 80 mg Documented by: Budesonide (Pulmicort Aerosol) 0.5 mg INHALATION BID.RT [facility] Last Admin: 11/19/19 07:18 Dose: 0.5 mg Documented by: Sodium Chloride () 250 mls @ 15 mls/hr IV .[id number] PRN PRN Reason: Saline Flush Sodium Chloride () 250 mls @ 15 mls/hr IV .[id number] PRN PRN Reason: Additional IVPB Infusion Piperacillin Sod/Tazobactam (Sod 3.375 gm/ Sodium Chloride) 50 mls @ 12.5 mls/hr IV Q12 [facility] Last Admin: 11/19/19 11:59 Dose: 12.5 mls/hr Documented by: Sodium Chloride () 250 mls @ 15 mls/hr IV .[id number] PRN PRN Reason: Saline Flush Sodium Chloride () 250 mls @ 15 mls/hr IV .[id number] PRN PRN Reason: Additional IVPB Infusion Metoprolol Succinate (Toprol Xl (Beta Kadi)) 50 mg PO BID [facility] Last Admin: 11/19/19 11:59 Dose: 50 mg Documented by: Ondansetron HCl (Zofran) 4 mg IV Q8H PRN PRN PRN Reason: NAUSEA/VOMITING Last Admin: 11/18/19 22:26 Dose: 4 mg Documented by: Pantoprazole Sodium (Protonix) 20 mg PO BID [facility] Last Admin: 11/19/19 12:00 Dose: 20 mg Documented by: Senna/Docusate Sodium (Senokot-S, Eveline-Colace) 2 tablet PO BID PRN PRN PRN Reason: Constipation Sodium Chloride () 10 - 40 ml IV UD PRN PRN Reason: SALINE FLUSH Last Admin: 11/18/19 10:34 Dose: 10 ml Documented by: Tamsulosin HCl (Flomax) 0.4 mg PO DAILY [facility] Last Admin: 11/19/19 11:59 Dose: 0.4 mg Documented by: Medical Necessity - Tobacco Use Smoking Status: Former smoker Assessment/Plan 1. Acute on chronic hypoxic respiratory failure secondary to acute on chronic heart failure with preserved ejection fraction with associated bilateral pleural effusions as well as severe underlying COPD without current exacerbation-continue supplement oxygen to maintain O2 at or above 90%. Patient underwent ultrasound-guided right-sided thoracentesis 11/16/2019 with removal of 1.3 L fluid, pleural fluid appears exudative in nature. Cultures and cytology pending. Pulmonary medicine recommending continuing empiric antibiotics pending final cultures. Continue IV Zosyn. If pleural effusions are persistent despite dialysis, patient may be considered for Pleurx catheter placement. Echocardiogram demonstrates an EF of 55%, large left pleural effusion. Left ultrasound-guided thoracentesis with fluid studies ordered, will complete tomorrow. 2. Chronic severe COPD-no acute exacerbation. As needed albuterol aerosols. 3. End-stage renal disease on hemodialysis-nephrology following. Continue dialysis per nephrology recommendations. 4. Acute on chronic iron deficiency anemia/anemia of chronic disease-trend CBC, transfuse for hemoglobin less than 7. 5. CAD status post CABG X3-continue statin, metoprolol. Aspirin on hold given acute anemia. 6. BPH-continue Flomax regimen. 7. Hypertension-stable, continue metoprolol regimen. 8. History of colonic ischemia/history of GI bleed-November 2017 patient had a ischemic right colon and proximal transverse colon and underwent ileostomy. Continue PPI. 9. Anxiety-uncontrolled. Continue home Xanax regimen however recommend discussion with primary care physician on long-term agent for further anxiety control. 10. PAD-continue statin, aspirin on hold. 11. Hyperlipidemia-continue statin regimen. 12. RAVEN-continue BiPAP nightly and PRN. DVT prophylaxis-SCDs. Pharmacologic prophylaxis contraindicated due to anemia. This patient was seen by SEUN Obregon under the supervision of Dr. Mulligan. <Kai Mulligan F - Last Filed: 11/19/19 16:08> - Physical Exam Vitals/I&O's: Vital Signs Temp Pulse Resp BP Pulse Ox 98.1 F 69 22 H 126/54 H 96 11/19/19 11:50 11/19/19 15:15 11/19/19 15:15 11/19/19 11:50 11/19/19 15:15 Oxygen Flow Rate (L/min) [3] 6 Oxygen Flow Rate (L/min) [2] 6 Oxygen Flow Rate (L/min) [1 ( 6 Initial Baseline)] Oxygen Flow Rate (L/min) 3 Oxygen Delivery Method [3] Nasal Cannula Oxygen Delivery Method [2] Nasal Cannula Oxygen Delivery Method [1 ( Nasal Cannula Initial Baseline)] Oxygen Delivery Method Nasal Cannula Weight: 149 lb 14.629 oz Body Mass Index (BMI) 24.1 Finger Stick Blood Glucose 200 Intake and Output for Last 24 Hours 11/17/19 11/18/19 11/19/19 23:59 23:59 23:59 Intake Total 580 / 580 1310 / 1310 50 / 50 Output Total 1350 / 1350 450 / 450 2500 / 2500 Balance -770 / -770 860 / 860 -2450 / -2450 Microbiology Past 72 Hours 11/16/19 13:06 Fluid - Pleural (Lung) Gram Stain - Final 11/16/19 13:06 Fluid - Pleural (Lung) Body Fluid Culture - Preliminary No growth-Final to follow Laboratory Results 11/16/19 13:06: Fl Pathologist Comment Reviewed 11/19/19 06:05: WBC 12.1 H, RBC 2.33 L, Hgb 7.2 L, Hct 24.1 L, MCV 103.4 H, MCH 30.9, MCHC 29.9 L, RDW Std Deviation 63.1 H, RDW Coeff of Eleni 16.5 H, Plt Count 176, MPV 10.3 11/19/19 06:05: Sodium 134 L, Potassium 6.4 H*, Chloride 103, Carbon Dioxide 24.0, Anion Gap 7, BUN 80 H, Creatinine 7.56 H*, Estim Creat Clear Calc 8.13, Est GFR (MDRD) Af Amer 9 L, Est GFR (MDRD) Non-Af 8 L, BUN/Creatinine Ratio 10.6, Glucose 96, Calcium 8.7 11/19/19 06:05: Lactate Dehydrogenase 189, Total Protein 6.3 L, Globulin 3.8, Albumin/Globulin Ratio 0.7 L Current Medications Acetaminophen (Tylenol) 650 mg PO Q6H PRN PRN PRN Reason: Pain Score 1-3/Temp > 100.7 F Last Admin: 11/19/19 13:43 Dose: 650 mg Documented by: Albuterol Sulfate (Ventolin Aerosols) 2.5 mg INHALATION Q2H PRN PRN PRN Reason: SOB/Wheezing Albuterol/Ipratropium (Duoneb) 3 ml INHALATION Q4HWA.RT [facility] Last Admin: 11/19/19 15:16 Dose: 3 ml Documented by: Alprazolam (Xanax) 0.5 mg PO TID PRN PRN PRN Reason: ANXIETY Last Admin: 11/18/19 21:37 Dose: 0.5 mg Documented by: Amlodipine Besylate (Norvasc) 2.5 mg PO DAILY [facility] Last Admin: 11/19/19 12:00 Dose: 2.5 mg Documented by: Atorvastatin Calcium (Lipitor) 80 mg PO QHS [facility] Last Admin: 11/18/19 21:37 Dose: 80 mg Documented by: Budesonide (Pulmicort Aerosol) 0.5 mg INHALATION BID.RT [facility] Last Admin: 11/19/19 07:18 Dose: 0.5 mg Documented by: Sodium Chloride () 250 mls @ 15 mls/hr IV .[id number] PRN PRN Reason: Saline Flush Sodium Chloride () 250 mls @ 15 mls/hr IV .[id number] PRN PRN Reason: Additional IVPB Infusion Piperacillin Sod/Tazobactam (Sod 3.375 gm/ Sodium Chloride) 50 mls @ 12.5 mls/hr IV Q12 [facility] Last Admin: 11/19/19 11:59 Dose: 12.5 mls/hr Documented by: Sodium Chloride () 250 mls @ 15 mls/hr IV .[id number] PRN PRN Reason: Saline Flush Sodium Chloride () 250 mls @ 15 mls/hr IV .[id number] PRN PRN Reason: Additional IVPB Infusion Metoprolol Succinate (Toprol Xl (Beta Kadi)) 50 mg PO BID [facility] Last Admin: 11/19/19 11:59 Dose: 50 mg Documented by: Ondansetron HCl (Zofran) 4 mg IV Q8H PRN PRN PRN Reason: NAUSEA/VOMITING Last Admin: 11/18/19 22:26 Dose: 4 mg Documented by: Pantoprazole Sodium (Protonix) 20 mg PO BID [facility] Last Admin: 11/19/19 12:00 Dose: 20 mg Documented by: Senna/Docusate Sodium (Senokot-S, Eveline-Colace) 2 tablet PO BID PRN PRN PRN Reason: Constipation Sodium Chloride () 10 - 40 ml IV UD PRN PRN Reason: SALINE FLUSH Last Admin: 11/18/19 10:34 Dose: 10 ml Documented by: Tamsulosin HCl (Flomax) 0.4 mg PO DAILY [facility] Last Admin: 11/19/19 11:59 Dose: 0.4 mg Documented by: Code Visit Addendum: Dr. Mulligan I personally examined the patient and reviewed the chart. I agree with the above. 69-year-old male with acute on chronic hypoxic respiratory failure secondary to chronic diastolic heart failure presenting with shortness of breath he also has end-stage renal disease that he undergoes dialysis 4. He did have a thoracentesis on the right and had significant improvement with his breathing and there does appear to be a possible infectious process going on. He does have an exudate on the right and therefore we will plan for thoracentesis on the left and also obtain fluid analysis to compare both sides. Continue with Lasix as well as dialysis for now. Appreciate pulmonology assistance in management of this patient for his advanced COPD. Continue with BiPAP. I did have a 20-minute discussion with the family about advanced care planning and they are currently adamant about no hospice and are even hesitant about palliative care at this time. Inpatient E&M: 38356 Subs Hosp L2 Procedures: 55087 Advncd Care Plan 30 Min
[2019-11-19] MEDS: cycloBENZAPRine HCl 10 MG Tablet 5 MG PO (13:43)
[2019-11-19] MEDS: Acetaminophen 325 MG Tablet 650 MG PO (13:43)
--- NOTE | 2019-11-19 13:49 | CASEMGMT ---
SW received a call from Shaniqua at [facility] and they have tried numerous times to reach patient's with no luck. They have left her messages requesting a return call even if she is not interested in the program. Elaine BARTH MSW
[2019-11-19 13:51] LABS: ALB/GLOB Ratio 0.7 RATIO (0.9-2.4); Globulin 3.8 g/dL (2.2-4.2); LDH 189 U/L (87-241); Protein, Total 6.3 g/dL (6.4-8.2)
--- NOTE | 2019-11-19 14:26 | CASEMGMT ---
GUS spoke with patient and his regarding [facility] trying to reach them. She said she told they she would call them when she knows what is going on and when they are ready. GUS called Neelima at [facility] and let her know this information. Elaine BARTH MSW
--- NOTE | 2019-11-19 14:45 | DIALYSIS ---
1150-HD x 3 hours complete. Tolerated tx well. Ran on 2k bath. UF of 2300ml. Used left arm fistula. [place] removed post tx and pressure applied to sites for 10 minutes. Fresh gauze and tape applied. Epogen given as ordered. Report was given to RAYMOND Hughes.
[2019-11-19] MEDS: Atorvastatin Calcium 80 MG Tablet PO (21:37)
[2019-11-19] MEDS: ALPRAZolam 0.5 MG Tablet PO (21:44)
[2019-11-20] VITALS (14 sets, daily range): BP systolic 111–121; BP diastolic 40–54; PULSE 67–82; RESP 12–22; TEMP 36.6–36.9; O2SAT 95–100
[2019-11-20 05:53] LABS: Hematocrit 23.9 % (40-54); Hemoglobin 7.4 g/dL (13.0-16.5); Mean Corpuscular Hgb 31.1 pg (27.0-32.0); Mean Corpuscular Volume 100.4 fL (80-94); Platelet Count 149 K/mm3 (150-450); RBC Distribution Width CV 16.5 % (11.6-14.6); RBC Distribution Width SD 60.2 fl (35.1-43.9); Red Blood Count 2.38 M/mm3 (4.6-6.2); White Blood Count 10.2 K/mm3 (4.4-11.0)
[2019-11-20 06:08] LABS: Anion Gap 8 (5-15); BUN 45 mg/dL (7-18); BUN/Creat Ratio 8.8 RATIO (10-20); Calcium,Total 8.1 mg/dL (8.5-10.1); Chloride 99 mmol/L (98-107); Creatinine, Serum 5.14 mg/dL (0.70-1.30); EST Glomerular Filtration Rate 12 mL/min (>60); Est Glom Filt Rate - Afr Amer 14 mL/min (>60); Estimated Creatinine Clearance 11.96 ml/min; Glucose 105 mg/dL (74-106); Magnesium 1.7 mg/dL (1.6-2.6); Potassium 5.1 mmol/L (3.5-5.1); Sodium Level 134 mmol/L (136-145)
[2019-11-20] MEDS: Budesonide Respules 0.5 MG/2 ML AMPUL.NEB. INHALATION (06:59)
[2019-11-20] MEDS: Ipratropium/Albuterol Sulfate 3 ML AMPUL.NEB INHALATION ×3 (06:59→14:51)
--- NOTE | 2019-11-20 08:43 | PN_ITS ---
Subjective: Patient did well overnight. Patient did tolerate hemodialysis yesterday without complications. Patient was able to tolerate BiPAP overnight and was back on his 3 L this morning. Patient states he is feeling close to his baseline at this time. No cough is been reported. Patient does have a repeat thoracentesis on the left scheduled today. Objective: Original thoracentesis does not appear to have any pathologic organisms. Anaerobic culture is still pending. - Physical Exam Vitals/I&O's: Vital Signs Temp Pulse Resp BP Pulse Ox 36.6 C 82 18 121/54 H 97 11/20/19 03:30 11/20/19 07:40 11/20/19 07:40 11/20/19 03:30 11/20/19 07:25 Oxygen Flow Rate (L/min) [3] 6 Oxygen Flow Rate (L/min) [2] 6 Oxygen Flow Rate (L/min) [1 ( 6 Initial Baseline)] Oxygen Flow Rate (L/min) 3 Oxygen Delivery Method [3] Nasal Cannula Oxygen Delivery Method [2] Nasal Cannula Oxygen Delivery Method [1 ( Nasal Cannula Initial Baseline)] Oxygen Delivery Method Nasal Cannula Weight: 66.5 kg Body Mass Index (BMI) 24.1 Finger Stick Blood Glucose 200 Intake and Output for Last 24 Hours 11/18/19 11/19/19 11/20/19 23:59 23:59 23:59 Intake Total 1310 / 1310 704 / 1024 470 / 470 Output Total 450 / 450 2600 / 2800 200 / 200 Balance 860 / 860 -1896 / -1776 270 / 270 General: Alert, Oriented x3, Cooperative, - - Mild conversational dyspnea. Appears older than stated age. HEENT: Atraumatic, PERRLA, EOMI, Normocephalic, - - No scleral icterus or injection noted Oral: Moist Mucosa, No Gingival or Mucosal Lesions/ Ulcerations Neck: Supple, No JVD, No Nodes, Trachea Midline Lungs: No rhonchi, No wheeze, No rales, Diminished, - - Symmetric expansion. Cardiovascular: Regular rate, Regular Rhythm, Normal S1, Normal S2, Murmur, No rub noted, No Gallop Abdomen: Bowel Sounds Present, Soft, Non Tender, Non-Distended Extremities: No cyanosis, Clubbing, Edema - Trace Skin: - - No significant change compared to previous Musculoskeletal: No Tenderness to Palpation of Joints or Extremities Lymphatic: No Cervical, Supraclavicular, or Inguinal Adenopathy Neurological: Cranial nerves II-XII grossly intact, Neuro grossly intact, Motor Exam 5/5 strength throughout Psych/Mental Status: Alert and oriented to time, place, person, mood and affect Microbiology Past 72 Hours 11/16/19 13:06 Fluid - Pleural (Lung) Gram Stain - Final 11/16/19 13:06 Fluid - Pleural (Lung) Body Fluid Culture - Preliminary No growth-Final to follow Laboratory Results 11/16/19 13:06: Fl Pathologist Comment Reviewed 11/19/19 06:05: Lactate Dehydrogenase 189, Total Protein 6.3 L, Globulin 3.8, Albumin/Globulin Ratio 0.7 L 11/20/19 05:46: WBC 10.2, RBC 2.38 L, Hgb 7.4 L, Hct 23.9 L, MCV 100.4 H, MCH 31.1, MCHC 31.0 L, RDW Std Deviation 60.2 H, RDW Coeff of Eleni 16.5 H, Plt Count 149 L, MPV 10.0 11/20/19 05:46: Sodium 134 L, Potassium 5.1, Chloride 99, Carbon Dioxide 27.0, Anion Gap 8, BUN 45 H, Creatinine 5.14 H, Estim Creat Clear Calc 11.96, Est GFR (MDRD) Af Amer 14 L, Est GFR (MDRD) Non-Af 12 L, BUN/Creatinine Ratio 8.8 L, Glucose 105, Calcium 8.1 L, Magnesium 1.7 Current Medications Acetaminophen (Tylenol) 650 mg PO Q6H PRN PRN PRN Reason: Pain Score 1-3/Temp > 100.7 F Last Admin: 11/19/19 13:43 Dose: 650 mg Documented by: Albuterol Sulfate (Ventolin Aerosols) 2.5 mg INHALATION Q2H PRN PRN PRN Reason: SOB/Wheezing Albuterol/Ipratropium (Duoneb) 3 ml INHALATION Q4HWA.RT JAIME Last Admin: 11/20/19 06:59 Dose: 3 ml Documented by: Alprazolam (Xanax) 0.5 mg PO TID PRN PRN PRN Reason: ANXIETY Last Admin: 11/19/19 21:44 Dose: 0.5 mg Documented by: Amlodipine Besylate (Norvasc) 2.5 mg PO DAILY [facility] Last Admin: 11/19/19 12:00 Dose: 2.5 mg Documented by: Atorvastatin Calcium (Lipitor) 80 mg PO QHS [facility] Last Admin: 11/19/19 21:37 Dose: 80 mg Documented by: Budesonide (Pulmicort Aerosol) 0.5 mg INHALATION BID.RT [facility] Last Admin: 11/20/19 06:59 Dose: 0.5 mg Documented by: Sodium Chloride () 250 mls @ 15 mls/hr IV .[id number] PRN PRN Reason: Saline Flush Sodium Chloride () 250 mls @ 15 mls/hr IV .[id number] PRN PRN Reason: Additional IVPB Infusion Piperacillin Sod/Tazobactam (Sod 3.375 gm/ Sodium Chloride) 50 mls @ 12.5 mls/hr IV Q12 [facility] Last Infusion: 11/20/19 01:37 Dose: Infused Documented by: Sodium Chloride () 250 mls @ 15 mls/hr IV .[id number] PRN PRN Reason: Saline Flush Sodium Chloride () 250 mls @ 15 mls/hr IV .[id number] PRN PRN Reason: Additional IVPB Infusion Metoprolol Succinate (Toprol Xl (Beta Kadi)) 50 mg PO BID [facility] Last Admin: 11/19/19 21:38 Dose: 50 mg Documented by: Ondansetron HCl (Zofran) 4 mg IV Q8H PRN PRN PRN Reason: NAUSEA/VOMITING Last Admin: 11/18/19 22:26 Dose: 4 mg Documented by: Pantoprazole Sodium (Protonix) 20 mg PO BID [facility] Last Admin: 11/19/19 21:37 Dose: 20 mg Documented by: Senna/Docusate Sodium (Senokot-S, Eveline-Colace) 2 tablet PO BID PRN PRN PRN Reason: Constipation Sodium Chloride () 10 - 40 ml IV UD PRN PRN Reason: SALINE FLUSH Last Admin: 11/18/19 10:34 Dose: 10 ml Documented by: Tamsulosin HCl (Flomax) 0.4 mg PO DAILY [facility] Last Admin: 11/19/19 11:59 Dose: 0.4 mg Documented by: Medical Necessity - Tobacco Use Smoking Status: Former smoker Assessment/Plan RECOMMENDATIONS: 1. Continue volume optimization with hemodialysis per nephrology recommendations. 2. Await results of thoracentesis 3. Continue BiPAP therapy with naps and nightly. 4. Likely okay to discontinue antibiotics from my perspective 5. Wean supplemental oxygen to maintain saturations at or above 90%. Encourage incentive spirometer use and mobilize patient as tolerated. IMPRESSIONS: 1. Acute on chronic hypoxemic respiratory failure/known history of severe obstructive lung disease Patient's right pleural fluid is suggestive of exudative process. Microbiology appears to be negative from the right side. Cytology results are still pending. Patient does have a left-sided thoracentesis scheduled for debra bonds. Labs have been ordered appropriately. Will await the results of these findings. Likely okay to discontinue antibiotics from my perspective given negative microbiology. If patient does not have enough fluid for thoracentesis, likely okay to discharge with recommendations for BiPAP with sleep. Patient should follow-up in our office in 2 weeks with nurse practitioner. 2. Acute on chronic anemia The patient does have a history of prior GI bleed. Continue PPI therapy as ordered. Monitor H&H and transfuse to maintain a hemoglobin at or above 7 g/dL. 3. End-stage renal disease Nephrology following to assist with dialysis management. 4. Coronary artery disease/atrial fibrillation/peripheral vascular disease Continue baseline medication regimen. 5. Obstructive sleep apnea Continue BiPAP therapy with naps and nightly. 6. CODE STATUS Full code following discussion with patient and family. Code Visit Inpatient E&M: 99787 Subs Hosp L2
--- NOTE | 2019-11-20 08:48 | US_ITS ---
PROCEDURE: ULTRASOUND GUIDED THORACENTESIS. DATE: November 20, 2019.. INDICATION: Male, 69 years old. Left pleural effusion. PHYSICIAN: Deven Hensley M.D. PROCEDURE: The risks, benefits, and alternatives to the procedure were explained to the patient. The specific risks of bleeding, infection, and pneumothorax requiring chest tube insertion were discussed and accepted. Written informed consent was obtained. Ultrasonographic evaluation of the left lower pleural space was carried out. An adequate pocket was identified. The patient was placed in the sitting, upright position. The overlying skin was prepped and draped in sterile fashion. 1% lidocaine was administered subcutaneously for local anesthesia. Under ultrasound guidance, a 5 [place] thoracentesis needle/catheter system was advanced into the left posterior lower pleural fluid collection. Approximately 1200 mL of douglas-colored fluid was drained. The catheter was removed, and a sterile dressing was applied. A specimen was collected and sent to the laboratory for analysis, as requested by the referring clinician. The patient tolerated the procedure well. A chest x-ray was ordered. US/Thoracentesis W US IMPRESSION: Ultrasound-guided left thoracentesis. Electronically Signed: Deven Hensley, at 10:44 EST , Service support ,
--- NOTE | 2019-11-20 09:17 | RAD_ITS ---
STUDY: X-RAY CHEST REASON FOR EXAM: Male, 69 years old. POST THORACENTESIS; -- 1200cc FROM LEFT SIDE TECHNIQUE: AP inspiration and expiration views COMPARISON: Comparison is made with prior examination dated November 18, 2019. FINDINGS: The patient is status post left thoracentesis. There is no evidence of pneumothorax. Mild residual bilateral pleural-parenchymal changes. RAD/Chest Insp/Exp 2 View IMPRESSION: No evidence of pneumothorax following the left thoracentesis. Electronically Signed: Deven Hensley, at 12:15 EST , Service support ,
--- NOTE | 2019-11-20 09:33 | FLU_PTH ---
PATIENT: ANGELINA FORREST Jr. LOC: [facility] U#:[id number] AGE/SX: 69/M ROOM: [facility] RE11/14/[address]: Dr. Kai Mulligan MD : 1950 BED: 1 DIS: 11/20/2019 SPEC #: [id number] RECD: 11/20/19 10:27 STATUS: NILAM RERafat #: [id number] SHANIA: 11/20/19 09:[address]: Kai Mulligan DEPT: CYTOLOGY RECD BY: Dae Nicole ENTERED: 11/20/19 10:28 SP TYPE: Fluid OTHR DR: DO Dr. Amadou Gilmore MD Dr. Jayaprakas Dasari, MD Debra Lewis, ARMEN-Izabel Tissues: THORACIC FLUID Procedures: Special Stain Group II Surgery Specimen Level IV Cytospin Fluid HEADER OPERATION: Ultrasound-guided thoracentesis PRE-OP DIAGNOSIS: Left pleural effusion TISSUE SUBMITTED: Thoracentesis fluid for cytology DIAGNOSIS CYTOLOGY Thoracentesis fluid for cytology (cytospin and cell block): Negative for malignant cells. AM:patrick 11/21/19 CYTOLOGY STUDY Slides are reviewed. CYTOLOGY GROSS Received is 80 ml of cloud yellow fluid labeled with the patient's name and and designated per the requisition as thoracentesis. Submitted for cytology preparation including cell block. / patrick 11/20/19 TC:5 CPT: 75796, 23255
[2019-11-20 09:41] LABS: Cytology, Body Fluid / CSF SEE PATHOLOGY REPORT
--- NOTE | 2019-11-20 09:54 | NURSING ---
VSA late d/t patient being off floor for thoracentesis
[2019-11-20] MEDS: Tamsulosin HCl 0.4 MG Capsule PO (09:56)
[2019-11-20] MEDS: Metoprolol(XL)Succ 50 MG Tablet PO (09:56)
[2019-11-20] MEDS: amLODIPine 2.5 MG Tablet PO (09:56)
[2019-11-20] MEDS: Pantoprazole Sodium 20 MG Tablet PO (09:56)
[2019-11-20 10:16] LABS: Body Fluid Mononuclear WBC # 0.169 10^3/uL; Body Fluid Mononuclear WBC % 89.4 %; Body Fluid Polynuclear WBC % 10.6 %; Body Fluid Total Cells Counted 0.206 10^3/ul; White Blood Count/Body Fluid 0.189 10^3/uL
[2019-11-20 10:35] LABS: Appearance/Body Fluid CLEAR; Auto B Fluid Analyzer BKGD Ct COUNTS W/IN LIMITS (W/IN LIMITS); Color/Body Fluid YELLOW; Source- Body Fluid THORACENTESIS
[2019-11-20 10:37] LABS: Red Cell Count/Body Fluid 265 /mm3
[2019-11-20 10:40] LABS: Glucose, Body Fluid 117 mg/dL (40-70); LDH,Body Fluid 71 Units/l (Not Establ.); Protein, Body Fluid 1.6 g/dL (Not Establ.)
--- NOTE | 2019-11-20 11:12 | PCM.PN.REN ---
Subjective: no new complaints - Physical Exam Vitals/I&O's: Vital Signs Temp Pulse Resp BP Pulse Ox 98.1 F 71 18 114/46 L 98 11/20/19 09:55 11/20/19 09:56 11/20/19 09:55 11/20/19 09:55 11/20/19 09:55 Oxygen Flow Rate (L/min) [3] 3 Oxygen Flow Rate (L/min) [2] 3 Oxygen Flow Rate (L/min) [1 ( 3 Initial Baseline)] Oxygen Flow Rate (L/min) 2 Oxygen Delivery Method [3] Nasal Cannula Oxygen Delivery Method [2] Nasal Cannula Oxygen Delivery Method [1 ( Nasal Cannula Initial Baseline)] Oxygen Delivery Method Nasal Cannula Weight: 66.5 kg Body Mass Index (BMI) 24.1 Finger Stick Blood Glucose 200 Intake and Output for Last 24 Hours 11/18/19 11/19/19 11/20/19 23:59 23:59 23:59 Intake Total 1310 / 1310 704 / 1024 470 / 470 Output Total 450 / 450 2600 / 2800 200 / 200 Balance 860 / 860 -1896 / -1776 270 / 270 General: Alert, Oriented x3, Cooperative HEENT: Atraumatic, PERRLA, EOMI, Normocephalic Neck: Supple, No JVD, Negative Carotid Bruits Lungs: Clear to auscultation, Normal air movement Cardiovascular: Regular rate, No murmurs Abdomen: Bowel Sounds Present, Soft, Non Tender Extremities: No edema, Capillary Refill Less than 3 Seconds Skin: No rashes, No breakdown Musculoskeletal: No Tenderness to Palpation of Joints or Extremities Neurological: Cranial nerves II-XII grossly intact Psych/Mental Status: Normal Affect, Appropriate Microbiology Past 72 Hours 11/20/19 09:20 Fluid - Pleural (Lung) Gram Stain - Final 11/16/19 13:06 Fluid - Pleural (Lung) Gram Stain - Final 11/16/19 13:06 Fluid - Pleural (Lung) Body Fluid Culture - Final Culture exhibits no growth. Laboratory Results 11/16/19 13:06: Fl Pathologist Comment Reviewed 11/19/19 06:05: Lactate Dehydrogenase 189, Total Protein 6.3 L, Globulin 3.8, Albumin/Globulin Ratio 0.7 L 11/20/19 05:46: WBC 10.2, RBC 2.38 L, Hgb 7.4 L, Hct 23.9 L, MCV 100.4 H, MCH 31.1, MCHC 31.0 L, RDW Std Deviation 60.2 H, RDW Coeff of Eleni 16.5 H, Plt Count 149 L, MPV 10.0 11/20/19 05:46: Sodium 134 L, Potassium 5.1, Chloride 99, Carbon Dioxide 27.0, Anion Gap 8, BUN 45 H, Creatinine 5.14 H, Estim Creat Clear Calc 11.96, Est GFR (MDRD) Af Amer 14 L, Est GFR (MDRD) Non-Af 12 L, BUN/Creatinine Ratio 8.8 L, Glucose 105, Calcium 8.1 L, Magnesium 1.7 11/20/19 09:20: Fluid Glucose 117 H, Fluid Total Protein 1.6, Fluid LDH 71 11/20/19 09:20: Fluid pH Pending 11/20/19 09:20: Fluid Source THORACENTESIS, Fluid Color YELLOW, Fluid Appearance CLEAR, Fluid WBC 0.189, Fluid RBC 265, Fluid Tot Cell Count 0.206, Fld Polynuclear WBCs # 0.020, Fld Polynuclear WBCs % 10.6, Fluid Mononuclear WBCs 0.169, Fld Mononuclear WBCs % 89.4, Fl Pathologist Comment May follow, Fluid Comment 2 SEE COMMENT 11/20/19 09:20: Miscellaneous Cytology Pending Current Medications Acetaminophen (Tylenol) 650 mg PO Q6H PRN PRN PRN Reason: Pain Score 1-3/Temp > 100.7 F Last Admin: 11/19/19 13:43 Dose: 650 mg Documented by: Albuterol Sulfate (Ventolin Aerosols) 2.5 mg INHALATION Q2H PRN PRN PRN Reason: SOB/Wheezing Albuterol/Ipratropium (Duoneb) 3 ml INHALATION Q4HWA.RT JAIME Last Admin: 11/20/19 11:00 Dose: 3 ml Documented by: Alprazolam (Xanax) 0.5 mg PO TID PRN PRN PRN Reason: ANXIETY Last Admin: 11/19/19 21:44 Dose: 0.5 mg Documented by: Amlodipine Besylate (Norvasc) 2.5 mg PO DAILY [facility] Last Admin: 11/20/19 09:56 Dose: 2.5 mg Documented by: Atorvastatin Calcium (Lipitor) 80 mg PO QHS [facility] Last Admin: 11/19/19 21:37 Dose: 80 mg Documented by: Budesonide (Pulmicort Aerosol) 0.5 mg INHALATION BID.RT [facility] Last Admin: 11/20/19 06:59 Dose: 0.5 mg Documented by: Sodium Chloride () 250 mls @ 15 mls/hr IV .[id number] PRN PRN Reason: Saline Flush Sodium Chloride () 250 mls @ 15 mls/hr IV .[id number] PRN PRN Reason: Additional IVPB Infusion Piperacillin Sod/Tazobactam (Sod 3.375 gm/ Sodium Chloride) 50 mls @ 12.5 mls/hr IV Q12 [facility] Last Admin: 11/20/19 09:58 Dose: 12.5 mls/hr Documented by: Sodium Chloride () 250 mls @ 15 mls/hr IV .[id number] PRN PRN Reason: Saline Flush Sodium Chloride () 250 mls @ 15 mls/hr IV .[id number] PRN PRN Reason: Additional IVPB Infusion Metoprolol Succinate (Toprol Xl (Beta Kadi)) 50 mg PO BID [facility] Last Admin: 11/20/19 09:56 Dose: 50 mg Documented by: Ondansetron HCl (Zofran) 4 mg IV Q8H PRN PRN PRN Reason: NAUSEA/VOMITING Last Admin: 11/18/19 22:26 Dose: 4 mg Documented by: Pantoprazole Sodium (Protonix) 20 mg PO BID [facility] Last Admin: 11/20/19 09:56 Dose: 20 mg Documented by: Senna/Docusate Sodium (Senokot-S, Eveline-Colace) 2 tablet PO BID PRN PRN PRN Reason: Constipation Sodium Chloride () 10 - 40 ml IV UD PRN PRN Reason: SALINE FLUSH Last Admin: 11/18/19 10:34 Dose: 10 ml Documented by: Tamsulosin HCl (Flomax) 0.4 mg PO DAILY [facility] Last Admin: 11/20/19 09:56 Dose: 0.4 mg Documented by: Medical Necessity - Tobacco Use Smoking Status: Former smoker Assessment/Plan 1. ESRD, HD 5 days a week at home. last HD yesterday 2. Dyspnea. Has a history of COPD. Also has history of HFpEF. He has BL pleural effusion. s/p tap 3. HTN. BP is well controlled 4. Anemia. No obvious history of acute blood loss currently. RITCHIE with HD. possible dc today I asked to do home HD at least 5 times a week or even 6 times a week. try for fluid 1-2 L each time. has several comorbidities contributing to dyspnea.
[2019-11-20 11:52] LABS: Lymphocytes 74 %; Macrophages 7 %; Other Cell Type/BF 19 %
--- NOTE | 2019-11-20 11:54 | DCINST_ITS ---
You will use the following diet at home:: Renal (restricted protein/sodium) Discharge Activity: Return to Normal Activity Call your doctor if you observe: Shortness of breath, Dizziness, Fainting spells, Chest pain Instructions: Thoracentesis Allergies/Adverse Reactions: Allergies irbesartan [From Avapro] Allergy (Severe, Verified 10/08/19 09:58) Blisters zolpidem [From Ambien] Adverse Reaction (Severe, Verified 10/08/19 09:58) made me go crazy, memory loss amoxicillin Adverse Reaction (Intermediate, Verified 10/08/19 09:58) PASSES BLOOD IN STOOL TOLERATES ZOSYN PASSES BLOOD IN STOOL metronidazole [From Flagyl] Adverse Reaction (Verified 10/08/19 09:58) pt states he got palpitations and nose bleed. pt states he got palpitations and nose bleed. Medications to take at Discharge Albuterol Aerosols [Ventolin Aerosols] 1 inh INHALATION Q4H PRN PRN 07/23/19 Budesonide Aerosol [Pulmicort Respules] 1 inh INHALATION BID 07/23/19 Formoterol Fumarate [Perforomist] 20 mcg INHALATION BID 07/23/19 Ipratropium/Albuterol Sulfate [Iprat-Albut 0.5-3(2.5) mg/3 ml] 1 inh INHALATION Q4H PRN PRN 07/23/19 Omeprazole 40 mg PO BID 07/23/19 Rosuvastatin Calcium [Crestor] 40 mg PO QHS 07/23/19 Tamsulosin HCl [Flomax] 0.8 mg PO DAILY 07/23/19 Metoprolol Succinate [Toprol Xl] 50 mg PO BID 08/08/19 Amlodipine [Norvasc] 2.5 mg PO DAILY #30 tab 11/20/19 Amox/Clavulanate Tablet [Augmentin Tablet] 500 mg PO Q12H 4 Days #8 tab 11/20/19 The following prescriptions were given: Amox/Clavulanate Tablet [Augmentin Tablet] 500 mg PO Q12H 4 Days #8 tab Prescription Printed Amlodipine [Norvasc] 2.5 mg PO DAILY #30 tab Transmission Status: Pending to [id number] Primary Care Physician: Tania Berger NP-C [Primary Care Provider] - Please follow up with your Primary Care Physician in: 1 Week Test Results: Test results from this visit will be discussed in further detail at your follow- up appointment, if applicable. Please Follow Up With: Elie Caicedo MD When: As scheduled 11/27/2019 Proposed Discharge Date: 11/20/19
--- NOTE | 2019-11-20 13:21 | CASEMGMT ---
Pt deferred HHC decision to and per at this time, they do not need HHC or OP therapy at this time. She assists pt at home with whatever he needs and she states they have family close to help, if necessary. states no concerns with taking pt home today and voices no further questions/concerns/needs at this time. Chris ANDRADE CM
--- NOTE | 2019-11-20 13:22 | DS.PCM_ITS ---
<Haven Carlson - Last Filed: 11/20/19 13:31> Discharge Date and Diagnosis Date of Admission: 11/14/19 Date of Discharge: 11/20/19 - Primary Discharge Diagnosis 1. Acute on chronic hypoxic respiratory failure secondary to acute on chronic heart failure with preserved ejection fraction with associated bilateral pleural effusions as well as severe underlying COPD without current exacerbation 2. Chronic severe COPD 3. End-stage renal disease on hemodialysis 4. Acute on chronic iron deficiency anemia/anemia of chronic disease 5. CAD status post CABG X3 6. BPH 7. Hypertension 8. History of colonic ischemia/history of GI bleed 9. Anxiety 10. PAD 11. Hyperlipidemia 12. RAVEN - Secondary Discharge Diagnosis Chronic Problems (Last Updated 11/14/19 @ 01:04 by mAadou Shane MD) Chronic atrial fibrillation (Chronic) Problem with dialysis access (Chronic) RAVEN (obstructive sleep apnea) (Chronic) AHI 426. ESRD (end stage renal disease) (Chronic) History of non-ST elevation myocardial infarction (NSTEMI) (Chronic 01/21/11) Stented coronary artery (Chronic) 2003, JASON to circumflex ; 10/13/2009 tsfer from [facility] to [facility], total of 5 bare metal st[facility]: 3.5 X 18 Db2 Developer, followed distall y by 3.0 X12 Db2 Developer to distal RCA;3.5 X 15 Db2 Developer, followed proximally by 4.0 X 18 Db2 Developer to Mid RCA; 4.0 X 18 Db2 Developer to Proximal RCA S/P CABG x 3 (Chronic 01/26/11) [facility] per Dr. Osito Hernandez: NICHOLAS to LAD, reverse SVG to OMbranch of CX, reverse SVG to PDA of RCA. PDA endarterectomy. Status post peripheral artery angioplasty with insertion of stent (Chronic ~2010) Right common iliac, [facility] Atherosclerotic heart disease of eek coronary artery without angina pectoris (Chronic) 2003, JASON to circumflex ; 10/10/2009 tsfer from [facility] to [facility], total of 5 bare metal stents to RCA; CABG X 3 vessels @ [facility] 01/31/2011 (critical left main and restenosis of RCA stents) Diastolic CHF (Chronic) HLD (hyperlipidemia) (Chronic) HTN (hypertension) (Chronic) PAD (peripheral artery disease) (Chronic) COPD (chronic obstructive pulmonary disease) (Chronic) Tobacco dependence (Chronic) Anemia (Chronic) BPH (benign prostatic hyperplasia) (Chronic) Hospital Course and Treatment Imaging Results: Diagnostic Data Chest CT 11/15/19 12:00 IMPRESSION: Moderate size bilateral pleural effusions with bibasilar atelectasis and/or infiltration superimposed on diffuse groundglass appearance with there are multiple small cystic changes worse in the upper lobes. Mildly enlarged mediastinal lymph nodes. Electronically Signed: Deven Hensley, at 13:31 EST , Service support , Thoracentesis Ultrasound 11/20/19 08:48 IMPRESSION: Ultrasound-guided left thoracentesis. Electronically Signed: Deven Hensley, at 10:44 EST , Service support , Chest X-Ray 11/20/19 09:17 IMPRESSION: No evidence of pneumothorax following the left thoracentesis. Electronically Signed: Deven Hensley, at 12:15 EST , Service support , Dr. Alaniz- Nephrology Dr. Salazar- Pulmonary medicine Operations: None Procedures: 2-D Echocardiogram, Dialysis, Thoracentesis Summary of Care Provided: The patient is a 69 year old M admitted 11/14/2019 due to shortness of breath and chest pain. 1. Acute on chronic hypoxic respiratory failure secondary to acute on chronic heart failure with preserved ejection fraction with associated bilateral pleural effusions as well as severe underlying COPD without current exacerbation- continue supplement oxygen to maintain O2 at or above 90%. Patient underwent ultrasound-guided right-sided thoracentesis 11/16/2019 with removal of 1.3 L fluid, pleural fluid appears exudative in nature. Microbiology negative, cytology pending. Patient received IV Zosyn empirically x6 days, continue renally-based Augmentin at discharge for 4 days. If pleural effusions are persistent despite dialysis, patient may be considered for Pleurx catheter placement. Echocardiogram demonstrates an EF of 55%, large left pleural effusion. Left ultrasound-guided thoracentesis 11/20/2019 with removal 1200 cc douglas-colored fluid. Initial labs appear transudative. Cultures and cytology pending. Patient has follow-up with pulmonary medicine 11/27/19. 2. Chronic severe COPD-no acute exacerbation. As needed albuterol aerosols. 3. End-stage renal disease on hemodialysis-nephrology following. Continue dialysis per nephrology recommendations. 4. Acute on chronic iron deficiency anemia/anemia of chronic disease-hemoglobin stable, continue outpatient follow-up. 5. CAD status post CABG X3-continue statin, metoprolol. Aspirin on hold given acute anemia. 6. BPH-continue Flomax regimen. 7. Hypertension-stable, continue metoprolol regimen. 8. History of colonic ischemia/history of GI bleed-November 2017 patient had a ischemic right colon and proximal transverse colon and underwent ileostomy. Continue PPI. 9. Anxiety-uncontrolled. Recommend discussion with primary care physician on long-term agent for further anxiety control. 10. PAD-continue statin, aspirin on hold. 11. Hyperlipidemia-continue statin regimen. 12. RAVEN-continue BiPAP nightly and PRN. General: Alert, Oriented x3, Cooperative HEENT: Atraumatic, PERRLA, EOMI, Normocephalic Neck: Supple, No JVD, Negative Carotid Bruits Lungs: Clear to auscultation, Diminished Cardiovascular: Regular rate, Regular Rhythm, Normal S1, Normal S2, No murmurs Abdomen: Bowel Sounds Present, Soft, Non Tender, Non-Distended Extremities: No clubbing, No cyanosis, No edema, Capillary Refill Less than 3 Seconds Skin: No rashes, No breakdown Musculoskeletal: No Tenderness to Palpation of Joints or Extremities Neurological: Cranial nerves II-XII grossly intact, Neuro grossly intact Psych/Mental Status: Anxious Patient seen and examined prior to discharge. Physical assessment as noted above. Patient is stable for discharge with follow up recommendations as noted above. This patient was seen by SEUN Obregon under the supervision of Dr. Mulligan. - Physical Exam Vitals/I&O's: Vital Signs Temp Pulse Resp BP Pulse Ox 98.1 F 78 21 H 114/46 L 98 11/20/19 09:55 11/20/19 11:15 11/20/19 11:15 11/20/19 09:55 11/20/19 09:55 Oxygen Flow Rate (L/min) [3] 3 Oxygen Flow Rate (L/min) [2] 3 Oxygen Flow Rate (L/min) [1 ( 3 Initial Baseline)] Oxygen Flow Rate (L/min) 2 Oxygen Delivery Method [3] Nasal Cannula Oxygen Delivery Method [2] Nasal Cannula Oxygen Delivery Method [1 ( Nasal Cannula Initial Baseline)] Oxygen Delivery Method Nasal Cannula Weight: 146 lb 9.718 oz Body Mass Index (BMI) 24.1 Finger Stick Blood Glucose 200 Intake and Output for Last 24 Hours 11/18/19 11/19/19 11/20/19 23:59 23:59 23:59 Intake Total 1310 / 1310 704 / 1024 947 / 947 Output Total 450 / 450 2600 / 2800 500 / 500 Balance 860 / 860 -1896 / -1776 447 / 447 Microbiology Past 72 Hours 11/20/19 09:20 Fluid - Pleural (Lung) Gram Stain - Final 11/16/19 13:06 Fluid - Pleural (Lung) Gram Stain - Final 11/16/19 13:06 Fluid - Pleural (Lung) Body Fluid Culture - Final Culture exhibits no growth. Laboratory Results 11/19/19 06:05: Lactate Dehydrogenase 189, Total Protein 6.3 L, Globulin 3.8, Albumin/Globulin Ratio 0.7 L 11/20/19 05:46: WBC 10.2, RBC 2.38 L, Hgb 7.4 L, Hct 23.9 L, MCV 100.4 H, MCH 31.1, MCHC 31.0 L, RDW Std Deviation 60.2 H, RDW Coeff of Eleni 16.5 H, Plt Count 149 L, MPV 10.0 11/20/19 05:46: Sodium 134 L, Potassium 5.1, Chloride 99, Carbon Dioxide 27.0, Anion Gap 8, BUN 45 H, Creatinine 5.14 H, Estim Creat Clear Calc 11.96, Est GFR (MDRD) Af Amer 14 L, Est GFR (MDRD) Non-Af 12 L, BUN/Creatinine Ratio 8.8 L, Glucose 105, Calcium 8.1 L, Magnesium 1.7 11/20/19 09:20: Fluid Glucose 117 H, Fluid Total Protein 1.6, Fluid LDH 71 11/20/19 09:20: Fluid pH Pending 11/20/19 09:20: Fluid Source THORACENTESIS, Fluid Color YELLOW, Fluid Appearance CLEAR, Fluid WBC 0.189, Fluid RBC 265, Fluid Tot Cell Count 0.206, Fld Polynuclear WBCs # 0.020, Fld Polynuclear WBCs % 10.6, Fluid Mononuclear WBCs 0.169, Fld Mononuclear WBCs % 89.4, Fluid Lymphocytes 74, Fluid Macrophages 7, Fluid Other Cells 19, Fl Pathologist Comment May follow, Fluid Comment 2 SEE COMMENT 11/20/19 09:20: Miscellaneous Cytology Pending Current Medications Acetaminophen (Tylenol) 650 mg PO Q6H PRN PRN PRN Reason: Pain Score 1-3/Temp > 100.7 F Last Admin: 11/19/19 13:43 Dose: 650 mg Documented by: Albuterol Sulfate (Ventolin Aerosols) 2.5 mg INHALATION Q2H PRN PRN PRN Reason: SOB/Wheezing Albuterol/Ipratropium (Duoneb) 3 ml INHALATION Q4HWA.RT [facility] Last Admin: 11/20/19 11:00 Dose: 3 ml Documented by: Alprazolam (Xanax) 0.5 mg PO TID PRN PRN PRN Reason: ANXIETY Last Admin: 11/19/19 21:44 Dose: 0.5 mg Documented by: Amlodipine Besylate (Norvasc) 2.5 mg PO DAILY [facility] Last Admin: 11/20/19 09:56 Dose: 2.5 mg Documented by: Atorvastatin Calcium (Lipitor) 80 mg PO QHS [facility] Last Admin: 11/19/19 21:37 Dose: 80 mg Documented by: Budesonide (Pulmicort Aerosol) 0.5 mg INHALATION BID.RT [facility] Last Admin: 11/20/19 06:59 Dose: 0.5 mg Documented by: Sodium Chloride () 250 mls @ 15 mls/hr IV .[id number] PRN PRN Reason: Saline Flush Sodium Chloride () 250 mls @ 15 mls/hr IV .[id number] PRN PRN Reason: Additional IVPB Infusion Piperacillin Sod/Tazobactam (Sod 3.375 gm/ Sodium Chloride) 50 mls @ 12.5 mls/hr IV Q12 [facility] Last Admin: 11/20/19 09:58 Dose: 12.5 mls/hr Documented by: Sodium Chloride () 250 mls @ 15 mls/hr IV .[id number] PRN PRN Reason: Saline Flush Sodium Chloride () 250 mls @ 15 mls/hr IV .[id number] PRN PRN Reason: Additional IVPB Infusion Metoprolol Succinate (Toprol Xl (Beta Kadi)) 50 mg PO BID [facility] Last Admin: 11/20/19 09:56 Dose: 50 mg Documented by: Ondansetron HCl (Zofran) 4 mg IV Q8H PRN PRN PRN Reason: NAUSEA/VOMITING Last Admin: 11/18/19 22:26 Dose: 4 mg Documented by: Pantoprazole Sodium (Protonix) 20 mg PO BID [facility] Last Admin: 11/20/19 09:56 Dose: 20 mg Documented by: Senna/Docusate Sodium (Senokot-S, Eveline-Colace) 2 tablet PO BID PRN PRN PRN Reason: Constipation Sodium Chloride () 10 - 40 ml IV UD PRN PRN Reason: SALINE FLUSH Last Admin: 11/18/19 10:34 Dose: 10 ml Documented by: Tamsulosin HCl (Flomax) 0.4 mg PO DAILY [facility] Last Admin: 11/20/19 09:56 Dose: 0.4 mg Documented by: Discharge Diet: Renal Diet Discharge Activity: Return to Normal Activity Call your doctor if you observe: Shortness of breath, Dizziness, Fainting spells, Chest pain Home Medications: Medications to take at Discharge Albuterol Aerosols [Ventolin Aerosols] 1 inh INHALATION Q4H PRN PRN 07/23/19 Budesonide Aerosol [Pulmicort Respules] 1 inh INHALATION BID 07/23/19 Formoterol Fumarate [Perforomist] 20 mcg INHALATION BID 07/23/19 Ipratropium/Albuterol Sulfate [Iprat-Albut 0.5-3(2.5) mg/3 ml] 1 inh INHALATION Q4H PRN PRN 07/23/19 Omeprazole 40 mg PO BID 07/23/19 Rosuvastatin Calcium [Crestor] 40 mg PO QHS 07/23/19 Tamsulosin HCl [Flomax] 0.8 mg PO DAILY 07/23/19 Metoprolol Succinate [Toprol Xl] 50 mg PO BID 08/08/19 Amlodipine [Norvasc] 2.5 mg PO DAILY #30 tab 11/20/19 Amox/Clavulanate Tablet [Augmentin Tablet] 500 mg PO Q12H 4 Days #8 tab 11/20/19 Following Prescrptions Were Given to Patient: Amox/Clavulanate Tablet [Augmentin Tablet] 500 mg PO Q12H 4 Days #8 tab Prescription Printed Amlodipine [Norvasc] 2.5 mg PO DAILY #30 tab Transmission Status: Received by [id number] Primary Care Physician: Tania Berger NP-C [Primary Care Provider] - Please follow up with your Primary Care Physician in: 1 Week Please Follow Up With: Elie Caicedo MD When: As scheduled 11/27/2019 Please Follow Up With: Elie Caicedo MD Patient Instructions: Thoracentesis Disposition: Home Minutes spent on discharge:: 35 Patient Condition:: Stable Medical Necessity - Tobacco Use Smoking Status: Former smoker Meaningful Use Info Meaningful Use Diagnoses (Choose all that apply): CHF - CHF HEATHER/ARB ordered at discharge?: Yes Documented LVEF (%): 55 <Kai Mulligan - Last Filed: 11/20/19 13:55> Discharge Date and Diagnosis - Secondary Discharge Diagnosis Chronic Problems (Last Updated 11/14/19 @ 01:04 by Amadou Shane MD) Chronic atrial fibrillation (Chronic) Problem with dialysis access (Chronic) RAVEN (obstructive sleep apnea) (Chronic) AHI 426. ESRD (end stage renal disease) (Chronic) History of non-ST elevation myocardial infarction (NSTEMI) (Chronic 01/21/11) Stented coronary artery (Chronic) 2003, JASON to circumflex ; 10/13/2009 tsfer from [facility] to [facility], total of 5 bare metal stents to RCA per Dr. Barrientos @ [facility]: 3.5 X 18 Db2 Developer, followed distally by 3.0 X12 Db2 Developer to distal RCA;3.5 X 15 Db2 Developer, followed proximally by 4.0 X 18 Db2 Developer to Mid RCA; 4.0 X 18 Db2 Developer to Proximal RCA S/P CABG x 3 (Chronic 01/26/11) [facility] per Dr. Osito Hernandez: NICHOLAS to LAD, reverse SVG to OMbranch of CX, reverse SVG to PDA of RCA. PDA endarterectomy. Status post peripheral artery angioplasty with insertion of stent (Chronic ~2010) Right common iliac, [facility] Atherosclerotic heart disease of eek coronary artery without angina pectoris (Chronic) 2003, JASON to circumflex ; 10/10/2009 tsfer from [facility] to [facility], total of 5 bare metal stents to RCA; CABG X 3 vessels @ [facility] 01/31/2011 (critical left main and restenosis of RCA stents) Diastolic CHF (Chronic) HLD (hyperlipidemia) (Chronic) HTN (hypertension) (Chronic) PAD (peripheral artery disease) (Chronic) COPD (chronic obstructive pulmonary disease) (Chronic) Tobacco dependence (Chronic) Anemia (Chronic) BPH (benign prostatic hyperplasia) (Chronic) Hospital Course and Treatment Imaging Results: 11/20/19 08:48 Thoracentesis W US [US] Routine 11/20/19 09:17 Chest Insp/Exp 2 View [RAD] Stat Summary of Care Provided: The patient is a 69 year old M [] - Physical Exam Vitals/I&O's: Vital Signs Temp Pulse Resp BP Pulse Ox 98.1 F 78 21 H 114/46 L 98 11/20/19 09:55 11/20/19 11:15 11/20/19 11:15 11/20/19 09:55 11/20/19 09:55 Oxygen Flow Rate (L/min) [3] 3 Oxygen Flow Rate (L/min) [2] 3 Oxygen Flow Rate (L/min) [1 ( 3 Initial Baseline)] Oxygen Flow Rate (L/min) 2 Oxygen Delivery Method [3] Nasal Cannula Oxygen Delivery Method [2] Nasal Cannula Oxygen Delivery Method [1 ( Nasal Cannula Initial Baseline)] Oxygen Delivery Method Nasal Cannula Weight: 146 lb 9.718 oz Body Mass Index (BMI) 24.1 Finger Stick Blood Glucose 200 Intake and Output for Last 24 Hours 11/18/19 11/19/19 11/20/19 23:59 23:59 23:59 Intake Total 1310 / 1310 704 / 1024 947 / 947 Output Total 450 / 450 2600 / 2800 500 / 500 Balance 860 / 860 -1896 / -1776 447 / 447 Microbiology Past 72 Hours 11/20/19 09:20 Fluid - Pleural (Lung) Gram Stain - Final 11/16/19 13:06 Fluid - Pleural (Lung) Gram Stain - Final 11/16/19 13:06 Fluid - Pleural (Lung) Body Fluid Culture - Final Culture exhibits no growth. Laboratory Results 11/20/19 05:46: WBC 10.2, RBC 2.38 L, Hgb 7.4 L, Hct 23.9 L, MCV 100.4 H, MCH 31.1, MCHC 31.0 L, RDW Std Deviation 60.2 H, RDW Coeff of Eleni 16.5 H, Plt Count 149 L, MPV 10.0 11/20/19 05:46: Sodium 134 L, Potassium 5.1, Chloride 99, Carbon Dioxide 27.0, Anion Gap 8, BUN 45 H, Creatinine 5.14 H, Estim Creat Clear Calc 11.96, Est GFR (MDRD) Af Amer 14 L, Est GFR (MDRD) Non-Af 12 L, BUN/Creatinine Ratio 8.8 L, Glucose 105, Calcium 8.1 L, Magnesium 1.7 11/20/19 09:20: Fluid Glucose 117 H, Fluid Total Protein 1.6, Fluid LDH 71 11/20/19 09:20: Fluid pH Pending 11/20/19 09:20: Fluid Source THORACENTESIS, Fluid Color YELLOW, Fluid Appearance CLEAR, Fluid WBC 0.189, Fluid RBC 265, Fluid Tot Cell Count 0.206, Fld Polynuclear WBCs # 0.020, Fld Polynuclear WBCs % 10.6, Fluid Mononuclear WBCs 0.169, Fld Mononuclear WBCs % 89.4, Fluid Lymphocytes 74, Fluid Macrophages 7, Fluid Other Cells 19, Fl Pathologist Comment May follow, Fluid Comment 2 SEE COMMENT 11/20/19 09:20: Miscellaneous Cytology Pending Current Medications Acetaminophen (Tylenol) 650 mg PO Q6H PRN PRN PRN Reason: Pain Score 1-3/Temp > 100.7 F Last Admin: 11/19/19 13:43 Dose: 650 mg Documented by: Albuterol Sulfate (Ventolin Aerosols) 2.5 mg INHALATION Q2H PRN PRN PRN Reason: SOB/Wheezing Albuterol/Ipratropium (Duoneb) 3 ml INHALATION Q4HWA.RT [facility] Last Admin: 11/20/19 11:00 Dose: 3 ml Documented by: Alprazolam (Xanax) 0.5 mg PO TID PRN PRN PRN Reason: ANXIETY Last Admin: 11/19/19 21:44 Dose: 0.5 mg Documented by: Amlodipine Besylate (Norvasc) 2.5 mg PO DAILY [facility] Last Admin: 11/20/19 09:56 Dose: 2.5 mg Documented by: Atorvastatin Calcium (Lipitor) 80 mg PO QHS [facility] Last Admin: 11/19/19 21:37 Dose: 80 mg Documented by: Budesonide (Pulmicort Aerosol) 0.5 mg INHALATION BID.RT [facility] Last Admin: 11/20/19 06:59 Dose: 0.5 mg Documented by: Sodium Chloride () 250 mls @ 15 mls/hr IV .[id number] PRN PRN Reason: Saline Flush Sodium Chloride () 250 mls @ 15 mls/hr IV .[id number] PRN PRN Reason: Additional IVPB Infusion Piperacillin Sod/Tazobactam (Sod 3.375 gm/ Sodium Chloride) 50 mls @ 12.5 mls/hr IV Q12 [facility] Last Admin: 11/20/19 09:58 Dose: 12.5 mls/hr Documented by: Sodium Chloride () 250 mls @ 15 mls/hr IV .[id number] PRN PRN Reason: Saline Flush Sodium Chloride () 250 mls @ 15 mls/hr IV .[id number] PRN PRN Reason: Additional IVPB Infusion Metoprolol Succinate (Toprol Xl (Beta Kadi)) 50 mg PO BID [facility] Last Admin: 11/20/19 09:56 Dose: 50 mg Documented by: Ondansetron HCl (Zofran) 4 mg IV Q8H PRN PRN PRN Reason: NAUSEA/VOMITING Last Admin: 11/18/19 22:26 Dose: 4 mg Documented by: Pantoprazole Sodium (Protonix) 20 mg PO BID [facility] Last Admin: 11/20/19 09:56 Dose: 20 mg Documented by: Senna/Docusate Sodium (Senokot-S, Eveline-Colace) 2 tablet PO BID PRN PRN PRN Reason: Constipation Sodium Chloride () 10 - 40 ml IV UD PRN PRN Reason: SALINE FLUSH Last Admin: 11/18/19 10:34 Dose: 10 ml Documented by: Tamsulosin HCl (Flomax) 0.4 mg PO DAILY [facility] Last Admin: 11/20/19 09:56 Dose: 0.4 mg Documented by: Code Visit Addendum: Dr. Mulligan I personally examined the patient and reviewed the chart. I agree with the above. 69-year-old male with acute on chronic hypoxic respiratory failure secondary to chronic diastolic heart failure as well as COPD. He also has end- stage renal disease and is on dialysis 5 days a week. He presented with bilateral pleural effusions he had 1300 cc drained from his right lung which came back as an exudative effusion, and then he had 1200 cc drained from his left lung today which came back as a transudate of effusion. It also seems like he does have a little bit of a pneumonia once the fluid was drained to get better visualization of the lung parenchyma. 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 Recommend daily weights and at least dialysis 5 days a week though she can flex up to 6 if necessary. Inpatient E&M: [id number] [facility]
--- NOTE | 2019-11-20 14:24 | PHA.DC.MC ---
Pharmacy Service has performed discharge medication reconciliation and counseling for this patient. 1. AMOXICILLIN/CLAVULANATE 500MG PO Q24H DAILY AFTER DIALYSIS X 4 DAYS The patient's discharge medication list was reviewed for discrepancies and discrepancies were resolved. SPOKE TO DANIEL REGARDING FREQUENCY, CHANGED TO Q24HR AFTER DIALYSIS Home Medications Albuterol Aerosols [Ventolin Aerosols] 1 inh INHALATION Q4H PRN PRN 07/23/19 Budesonide Aerosol [Pulmicort Respules] 1 inh INHALATION BID 07/23/19 Formoterol Fumarate [Perforomist] 20 mcg INHALATION BID 07/23/19 Ipratropium/Albuterol Sulfate [Iprat-Albut 0.5-3(2.5) mg/3 ml] 1 inh INHALATION Q4H PRN PRN 07/23/19 Omeprazole 40 mg PO BID 07/23/19 Rosuvastatin Calcium [Crestor] 40 mg PO QHS 07/23/19 Tamsulosin HCl [Flomax] 0.8 mg PO DAILY 07/23/19 Metoprolol Succinate [Toprol Xl] 50 mg PO BID 08/08/19 Amlodipine [Norvasc] 2.5 mg PO DAILY #30 tab 11/20/19 Amox/Clavulanate Tablet [Augmentin Tablet] 500 mg PO Q24H #4 tab 11/20/19 The patient was counseled on the following discharge medications and changes in medications for homegoing were reviewed. The Reason for Use, instructions for use, and potential side effects were reviewed for all new medications. The patient's questions regarding all of their medications were answered. The patient was able to verbally demonstrate an understanding of their discharge medications.
[2019-11-21 13:13] LABS: Pathologist Comment/Body Fluid Reviewed
--- NOTE | 2019-11-21 13:26 | CASEMGMT ---
RAYMOND SPENCER Discharge Follow-Up Phone Call. Idalmis: Feliberto Strata: 3 Discharge Date: 11/20/2019 Adm Dx: Acute on Chronic CHF, Acute on Chronic Resp Failure. Call to pt to inquire about how he has been doing since being discharged from the hospital. Pt's answered and spoke to this RN CM. She states pt has been doing okay, other than got sick during the night again last night. states he is doing better today and has not had any further N/V today. She states that pt was doing this while in the hospital and is wondering if it may be the antibiotic that is causing the N/V. states that pt has not been getting sick during the day after taking the 1st dose of antibiotic. advised to contact PCP to address this concern with them and stated she planned to so. also stated that the pharmacist advised pt not to take the antibiotic until after his dialysis and that he won't be getting his 1st dose today until around 4 PM. This RN CM called [facility] pharmacist to inquire about when 2nd dose could be taken. Per pharmacist, the doses should be a minimum of 8 hrs apart. made aware and informed her if pt takes a dose at 4 PM then he should wait until 12 midnight to take the next dose. She voices understanding. denies having any further questions/concerns re: the discharge instructions, medications, or appts. She states she is aware of the upcoming appts that were made for pt prior to discharge. Junior VALADEZ RN, CM
[2019-11-22 17:08] LABS: pH, Body Fluid 11254 7.5 (Not Estab.)
== END 2019-11-20 15:35 | disposition home or self-care (01) | DRG 291 ==
PROVIDERS: Internal Medicine Critical Care Medicine; Internal Medicine Nephrology; Nurse Practitioner Family; Student in an Organized Health Care Education/Training Program; Admitting Provider Hospitalist; PCP Nurse Practitioner Family; Visit Provider Family Medicine
DX: I13.2 Hypertensive heart and chronic kidney disease with heart failure and with stage 5 chronic kidney disease, or end stage renal disease (principal); J96.21 Acute and chronic respiratory failure with hypoxia; I50.33 Acute on chronic diastolic (congestive) heart failure; N18.6 End stage renal disease; J91.8 Pleural effusion in other conditions classified elsewhere; I48.20 Chronic atrial fibrillation, unspecified; J44.9 Chronic obstructive pulmonary disease, unspecified; D63.8 Anemia in other chronic diseases classified elsewhere; D50.9 Iron deficiency anemia, unspecified; I25.10 Atherosclerotic heart disease of native coronary artery without angina pectoris; N40.0 Benign prostatic hyperplasia without lower urinary tract symptoms; Z99.2 Dependence on renal dialysis; F41.9 Anxiety disorder, unspecified; I73.9 Peripheral vascular disease, unspecified; E78.5 Hyperlipidemia, unspecified; G47.33 Obstructive sleep apnea (adult) (pediatric); Z95.5 Presence of coronary angioplasty implant and graft; Z95.1 Presence of aortocoronary bypass graft; Z87.19 Personal history of other diseases of the digestive system; Z93.2 Ileostomy status; Z99.81 Dependence on supplemental oxygen; K21.9 Gastro-esophageal reflux disease without esophagitis; Z87.891 Personal history of nicotine dependence
CPT/HCPCS: 32555; 36415; 71045; 71046; 71250; 80048; 80069; 82728; 82945; 83540; 83550; 83615; 83735; 83986; 84156; 84157; 84484; 85025; 85027; 85610; 85730; 86850; 86900; 86901; 86920; 86922; 87070; 87075; 87205; 87633; 87641; 88108; 88305; 88313; 88341; 88342; 89050; 90937; 93005; 93306; 94002; 94003; 94640; 94667; 94668; 97163; 97166; 97530; J7030; P9016; Q9957; A4216; G0257; J2405; Q5106

== ENCOUNTER → 2019-12-25 14:01 | Outpatient (CLI) | payer MEDICARE, SELFPAY ==
[2019-11-27 06:26] VITALS: BMI 22.4
--- NOTE | 2019-12-25 14:02 | RAD_ITS ---
STUDY: X-RAY CHEST REASON FOR EXAM: Male, 69 years old. Dyspnea/sob. Recurrent pleural effusion. Hx of COPD TECHNIQUE: PA and lateral views of the chest. COMPARISON: Comparison is made with prior examination of November 20, 2019. FINDINGS: Small bilateral pleural effusions right greater than left with bibasilar atelectasis and/or infiltrates. Sternal cerclage wires and vascular clips are present from a prior sternotomy and coronary artery bypass graft procedure (CABG). Normal mediastinum and justyn. Normal visualized pulmonary arteries. There is atherosclerotic calcification of the aortic arch with tortuosity. There are diffuse degenerative changes of the visualized thoracic spine. Normal visualized ribs, clavicles, and shoulders. There is no demonstrated abnormality of the visualized soft tissue structures of the upper abdomen. RAD/Chest PA and Lateral IMPRESSION: Small bilateral pleural effusions with bibasilar atelectasis and/or infiltrates worse on the right side. Electronically Signed: Deven Hensley, at 14:32 EDT , Service support ,
--- NOTE | 2020-01-03 14:05 | HP.PCM_ITS ---
History of Present Illness Date of Admission: 01/03/20 Chief Complaint: pus from fistula The patient is a 69 year old M who was in his normal state of health today had a Band-Aid over his fistula and saw some pus. Contacted his elevator builder who advised patient come into the emergency room. In the emergency room, patient had chest x-ray that was concerning for pneumonia and patient received Rocephin. Nephrology was contacted through the emergency room and they advised to bring patient in so they can evaluate his fistula and continue with his dialysis. Patient does dialysis 5 days a week and yesterday was his regularly scheduled off day but had not received dialysis yet today. Patient states that he is been otherwise compliant with his home dialysis. He denies any fever chills, shortness of breath, denies any travel, denies any sick contacts. Otherwise feels well. [] Past Medical History Past Medical History (Chronic Problems): Chronic Problems (Last Reviewed 11/27/19 @ 13:42 by Haven Arreguin) Transudative pleural effusion (Chronic) Chronic atrial fibrillation (Chronic) Problem with dialysis access (Chronic) RAVEN (obstructive sleep apnea) (Chronic) AHI 426. ESRD (end stage renal disease) (Chronic) History of non-ST elevation myocardial infarction (NSTEMI) (Chronic 01/21/11) Atherosclerotic heart disease of [place] coronary artery without angina pectoris (Chronic) 2003, JASON to circumflex ; 10/10/2009 tsfer from [facility] to [facility], total of 5 bare metal stents to RCA; CABG X 3 vessels @ [facility] 01/31/2011 (critical left main and restenosis of RCA stents) Diastolic CHF (Chronic) HLD (hyperlipidemia) (Chronic) HTN (hypertension) (Chronic) PAD (peripheral artery disease) (Chronic) COPD (chronic obstructive pulmonary disease) (Chronic) Tobacco dependence (Chronic) Anemia (Chronic) BPH (benign prostatic hyperplasia) (Chronic) Medical History: Medical History (Last Reviewed 01/03/20 @ 14:[address] Chris Stark DO) ESRD (end stage renal disease) (Chronic) N18.6 History of non-ST elevation myocardial infarction (NSTEMI) (Chronic) Onset Date: 01/21/11 I25.2 Atherosclerotic heart disease of [place] coronary artery without angina pectoris (Chronic) I25.10 2003, JASON to circumflex ; 10/10/2009 tsfer from [facility] to [facility], total of 5 bare metal stents to RCA; CABG X 3 vessels @ [facility] 01/31/2011 (critical left main and restenosis of RCA stents) Diastolic CHF (Chronic) I50.30 HLD (hyperlipidemia) (Chronic) E78.5 HTN (hypertension) (Chronic) I10 PAD (peripheral artery disease) (Chronic) I73.9 COPD (chronic obstructive pulmonary disease) (Chronic) J44.9 Tobacco dependence (Chronic) F17.200 Anemia (Chronic) D64.9 BPH (benign prostatic hyperplasia) (Chronic) N40.0 Allergies irbesartan [From Avapro] Allergy (Severe, Verified 01/03/20 10:55) Blisters zolpidem [From Ambien] Adverse Reaction (Severe, Verified 01/03/20 10:55) made me go crazy, memory loss amoxicillin Adverse Reaction (Intermediate, Verified 01/03/20 10:55) PASSES BLOOD IN STOOL TOLERATES ZOSYN PASSES BLOOD IN STOOL metronidazole [From Flagyl] Adverse Reaction (Verified 01/03/20 10:55) pt states he got palpitations and nose bleed. pt states he got palpitations and nose bleed. Home Medications: Ambulatory Orders Medication Instructions Recorded Budesonide Aerosol [Pulmicort 1 inh INHALATION TID 07/23/19 Respules] Ipratropium/Albuterol Sulfate 1 inh INHALATION Q4H PRN PRN 07/23/19 [Iprat-Albut 0.5-3(2.5) mg/3 ml] Omeprazole 40 mg PO BID 07/23/19 Rosuvastatin Calcium [Crestor] 40 mg PO QHS 07/23/19 Tamsulosin HCl [Flomax] 0.8 mg PO DAILY 07/23/19 Metoprolol Succinate [Toprol Xl] 50 mg PO BID 08/08/19 Surgical History: Surgical History (Last Reviewed 01/03/20 @ 14:[address] Chris Stark DO) s/p fistulogram (Resolved) Onset Date: ~09/28/18 history of surgically created arteriovenous fistula (Resolved) Stented coronary artery (Resolved) Z95.5 2004, JASON to circumflex ; 10/13/2009 tsfer from [facility] to [facility], total [facility].5 X 18 [employer], followed distally by 3.0 X12 Data Center Operator to distal RCA;3.5 X 15 Data Center Operator, followed proximally by 4.0 X 18 Data Center Operator to Mid RCA; 4.0 X 18 Data Center Operator to Proximal RCA S/P CABG x 3 (Resolved) Onset Date: 01/26/11 Z95.1 [facility] per Dr. Osito Hernandez: NICHOLAS to LAD, reverse SVG to OMbranch of CX, reverse SVG to PDA of RCA. PDA endarterectomy. Status post peripheral artery angioplasty with insertion of stent (Resolved) Onset Date: ~2010 Z95.820 Right common iliac, [facility] Surgical History: coronary bypass surgery, tonsillectomy, - - CABG x3, multiple PCI coronary arteries, right common iliac angioplasty and stenting, aVF, tonsillectomy, multiple endoscopies with intervention. Psychiatric History: Anxiety Smoking Status: Former smoker - *Family History Maternal Family History: Family History (Last Reviewed 01/03/20 @ 14:[address] Chris Stark DO) Father CAD (coronary artery disease) Hypertension Kidney disease CVA (cerebral vascular accident) Other Cancer History Items: Heart Disease Paternal Family History: Family History (Last Reviewed 01/03/20 @ 14:[address] Chris Stark DO) Father CAD (coronary artery disease) Hypertension Kidney disease CVA (cerebral vascular accident) Other Cancer History Items: Heart Disease, Hypertension, Renal Disease Review of Systems Constitutional: Denies: Anorexia, Fever, Night Sweats Eyes: Denies: Blurred vision, Double vision HEENT: Denies: Head Aches, Sinus Congestion, Sinus Drainage Cardiovascular: Denies: Chest Pain, Palpitations Respiratory: Denies: Cough, Shortness of breath at rest, Sputum production Gastrointestinal: Denies: Abdominal Pain, Nausea, Vomiting Comment: All review systems are otherwise negative except for as mentioned above and in HPI. VTE Information - Inpt Only VTE Present on Admission: No VTE Mechan Device Prophylaxis: None VTE Pharm Prophylaxis ordered?: No Reason prophylaxis not ordered:: Treatment Not Indicated Patient Problems: Active and Suspected Problems (Last Reviewed 11/27/19 @ 13:42 by Haven Arreguin) Pneumonia (Acute) - Physical Exam Vitals/I&O's: Body Mass Index (BMI) 22.4 Finger Stick Blood Glucose 200 General: Alert, Cooperative, No apparent distress HEENT: Atraumatic, Normocephalic Oral: Moist Mucosa, No Gingival or Mucosal Lesions/ Ulcerations Neck: No Nodes, Trachea Midline Lungs: Clear to auscultation, Normal air movement, No rhonchi, No wheeze, No rales Cardiovascular: Regular rate, Regular Rhythm, Normal S1, Normal S2, No murmurs Abdomen: Bowel Sounds Present, Soft, Non Tender, Non-Distended, No Hepato- splenomegaly Extremities: No edema, No Calf Tenderness, - - Fistula in the left upper extremity shows no warmth, no erythema and no purulence can be expressed. Skin: No rashes, No breakdown Psych/Mental Status: Normal Affect, Appropriate Chest x-ray personally reviewed and shows some pulmonary vascular congestion and bilateral pleural effusions. No change from December 24. Current Medications Acetaminophen (Tylenol) 650 mg PO Q6H PRN PRN PRN Reason: Pain Score 1-10/Temp > 100.7 F Albuterol/Ipratropium (Duoneb) ml INHALATION Q4H PRN PRN PRN Reason: SOB &/OR WHEEZING Alprazolam (Xanax) 0.5 mg PO BID PRN PRN Reason: ANXIETY Budesonide (Pulmicort Aerosol) mg INHALATION TID [facility] Metoprolol Succinate (Toprol Xl (Beta Kadi)) 50 mg PO BID [facility] Non-Formulary Medication (Omeprazole) 40 mg PO BID [facility] Non-Formulary Medication (Rosuvastatin Calcium [Crestor]) 40 mg PO QHS [facility] Ondansetron HCl (Zofran) 4 mg IV Q8H PRN PRN PRN Reason: NAUSEA/VOMITING Tamsulosin HCl (Flomax) 0.8 mg PO DAILY [facility] Assessment/Plan All Active Problems (Last Reviewed 11/27/19 @ 13:43 by Haven Arreguin) Pneumonia (Acute) s/p fistulogram (Resolved ~09/28/18) history of surgically created arteriovenous fistula (Resolved) Stented coronary artery (Resolved) S/P CABG x 3 (Resolved 01/26/11) Status post peripheral artery angioplasty with insertion of stent (Resolved ~2010) 1. Discharge from fistula: Patient had a Band-Aid on for the past couple days since his last dialysis session. This may been just more healing tissue than actual pus. Patient will be observed overnight to make sure there is no active infection which I do not suspect.. 2. Missed dialysis. Patient missed dialysis because he was instructed by his elevator builder to come in today. Nephrology was contacted through the emergency room and will be on consult here. 3. Abnormal chest x-ray: This appears more consistent with pulmonary vascular congestion rather than pneumonia. Additionally, patient has normal white count and normal vital signs otherwise. Patient did receive ceftriaxone. I advised the emergency room doctor to discontinue antibiotics. At the time of my virgil luation he had not received the azithromycin. I will not prescribe any additional more antibiotics unless his condition warrants it. 4. End-stage renal disease: Patient on dialysis 5 times a week at home. Nephrology will consult to continue with his dialysis here. 5. VTE prophylaxis: Not indicated as patient is a low risk as he is observation status. 6. Advanced care planning: Patient wishes to be full CODE STATUS. OBSV E&M: [id number] Initial observation care L2
== END ==
PROVIDERS: PCP Nurse Practitioner Family; Referring Provider Internal Medicine Critical Care Medicine; Visit Provider Internal Medicine Critical Care Medicine
DX: J44.9 Chronic obstructive pulmonary disease, unspecified (principal)
CPT/HCPCS: 71046

== ENCOUNTER 2020-01-03 10:55 | Inpatient (IN) | payer MEDICARE, SELFPAY ==
[2019-11-27 06:26] VITALS: BMI 22.4
[2020-01-03] VITALS (12 sets, daily range): BP systolic 120–149; BP diastolic 55–64; PULSE 84–107; RESP 16–34; TEMP 36.8–37.8; O2SAT 89–100; BMI 22.6; BMI 22.7
--- NOTE | 2020-01-03 11:26 | RAD_ITS ---
STUDY: X-RAY CHEST REASON FOR EXAM: Male, 69 years old. FEVER TECHNIQUE: Single AP portable view of the chest. COMPARISON: Comparison is made with prior examination dated December 25, 2019. FINDINGS: Once again, there is evidence of small bilateral pleural effusions with bibasilar atelectasis. Stable appearance of the bilateral mild degree of the infiltrates. This may represent CHF. Clinical correlation is recommended. Sternal cerclage wires and vascular clips are present from a prior sternotomy and coronary artery bypass graft procedure (CABG). Normal mediastinum and justyn. Normal visualized pulmonary arteries. There is atherosclerotic calcification of the aortic arch with tortuosity. There are diffuse degenerative changes of the visualized thoracic spine. Normal visualized ribs, clavicles, and shoulders. There is no demonstrated abnormality of the visualized soft tissue structures of the upper abdomen. RAD/Chest 1 View (Portable) IMPRESSION: Stable examination with evidence of bilateral pleural effusions and bibasilar atelectasis with findings suggestive of a CHF and possible bilateral infiltrates. Electronically Signed: Deven Hensley, at 11:48 EDT , Service support ,
[2020-01-03 11:52] LABS: Absolute Lymphocyte Count 1.09 X10^3/uL (0.83-4.51); Absolute Neutrophil Count 6.9 X10^3/uL (2.0-7.7); Basophil# 0.02 X10^3/uL; Basophil% 0.2 % (0-1); Eosinophil# 0.31 X10^3/uL; Eosinophils% 3.4 % (0-5); Hematocrit 28.1 % (40-54); Hemoglobin 8.9 g/dL (13.0-16.5); Lymphocyte # 1.09 X10^3/ul (4.0); Lymphocyte % 11.9 % (19-41); Mean Corp Hgb Conc 31.7 g/dL (32-36); Mean Corpuscular Volume 97.9 fL (80-94); Mean Platelet Vol. 9.1 fl (6.2-12.0); Monocyte# 0.82 X10^3/uL; Monocyte% 8.9 % (0-10); NRBC Flagged by Analyzer 0 % (0-5); Neutrophil # 6.89 X10^3/uL (2.7-7.7); Neutrophil % 75.1 % (47-70); Platelet Count 238 K/mm3 (150-450); RBC Distribution Width CV 16.5 % (11.6-14.6); RBC Distribution Width SD 59.3 fl (35.1-43.9); Red Blood Count 2.87 M/mm3 (4.6-6.2); White Blood Count 9.2 K/mm3 (4.4-11.0)
[2020-01-03 12:06] LABS: ALB/GLOB Ratio 0.6 RATIO (0.9-2.4); AST(SGOT) 21 U/L (15-37); Alanine Aminotransfer ALT/SGPT 21 U/L (16-61); Albumin, Serum 2.7 g/dL (3.2-5.0); Alkaline Phosphatase 132 U/L (45-117); Anion Gap 11 (5-15); BUN 74 mg/dL (7-18); BUN/Creat Ratio 10.1 RATIO (10-20); Calcium,Total 9.4 mg/dL (8.5-10.1); Chloride 92 mmol/L (98-107); Creatinine, Serum 7.35 mg/dL (0.70-1.30); EST Glomerular Filtration Rate 8 mL/min (>60); Est Glom Filt Rate - Afr Amer 10 mL/min (>60); Estimated Creatinine Clearance 8.68 ml/min; Globulin 4.7 g/dL (2.2-4.2); Glucose 91 mg/dL (74-106); Potassium 4.9 mmol/L (3.5-5.1); Protein, Total 7.4 g/dL (6.4-8.2); Sodium Level 129 mmol/L (136-145)
[2020-01-03 12:55] LABS: Lactic Acid 0.7 mmol/L (0.4-1.9)
--- NOTE | 2020-01-03 12:55 | ED.VIS.GEN ---
History of Present Illness Chief Complaint: Cellulitis Informant: Patient Narrative: Patient presents with, temperature of 100 as well as possible left fistula infection. He has not had dialysis for 2 days he normally gets dialysis 5 times a week and he does home hemodialysis. He has some shortness of breath which is mild. He has a cough but it is nonproductive. He has no abdominal pain. He has normal output from his ostomy. Past Medical History - Allergies and Home Meds Allergies/Adverse Reactions: Allergies irbesartan [From Avapro] Allergy (Severe, Verified 01/03/20 10:55) Blisters zolpidem [From Ambien] Adverse Reaction (Severe, Verified 01/03/20 10:55) made me go crazy, memory loss amoxicillin Adverse Reaction (Intermediate, Verified 01/03/20 10:55) PASSES BLOOD IN STOOL TOLERATES ZOSYN PASSES BLOOD IN STOOL metronidazole [From Flagyl] Adverse Reaction (Verified 01/03/20 10:55) pt states he got palpitations and nose bleed. pt states he got palpitations and nose bleed. Primary Care Physician: Tania Berger NP-C [Primary Care Provider] - Past Medical History: - - Patient has extensive medical history, hypertension hypercholesterolemia, end-stage renal disease on hemodialysis, history of peripheral artery disease as well as ischemic bowel with a colostomy Surgical History: coronary bypass surgery, tonsillectomy, - - CABG x3, multiple PCI coronary arteries, right common iliac angioplasty and stenting, aVF, tonsillectomy, multiple endoscopies with intervention. Smoking Status: Former smoker - Family History Maternal Family History: Family History (Last Reviewed 11/27/19 @ 13:43 by Haven Arreguin) Father CAD (coronary artery disease) Hypertension Kidney disease CVA (cerebral vascular accident) Other Cancer Family History: Reports: Heart Disease Paternal Family History: Family History (Last Reviewed 11/27/19 @ 13:43 by Haven Arreguin) Father CAD (coronary artery disease) Hypertension Kidney disease CVA (cerebral vascular accident) Other Cancer Family History: Reports: Heart Disease, Hypertension, Renal Disease Review of Systems All systems negative except as indicated General: Reports: Fever Cardiovascular: Denies: Chest pain Respiratory: Reports: Dyspnea, Cough. Denies: Sputum Gastrointestinal: Denies: Abdominal pain, Nausea Genitourinary: Reports: - - Minimal urine output Musculoskeletal: Denies: Myalgias, Arthralgias Skin: Denies: Rash, Abscess Neurological: Denies: Headache, Weakness Psych: Denies: Depression Hematologic: Denies: Easy bruising Allergy: Denies: Swelling of the tongue Physical Exam Vital Signs/Narrative: Vital Signs Temp Pulse Resp BP Pulse Ox 01/03/20 10:56 98.6 F 84 16 129/58 H 95 General: Well nourished, Well developed Eyes: Perrl, EOMI ENT: - - Slight upper airway congestion Neck: Supple Cardiovascular: Regular rate Respiratory: No distress Abdomen: Soft, Nontender, - - Ostomy is intact Back: Nontender, Normal Inspection Extremities: - - Left arm fistula with a palpable thrill. Slight erythema but no obvious cellulitis no calor. There is no induration Skin: Normal color Neurological: Normal Strength, Normal Sensation Diagnostic/Tx/Re-eval - Medical Decision Making Patient is found to have bilateral pneumonia although his white count is unremarkable, I do not see signs of cellulitis, I will treat with antibiotics. We will admit, he will need dialysis and patient I called nephrology. ED Disposition - Plan for ED Patient: Disposition: Acute Care Hospital [facility] Diagnosis: Pneumonia Referrals: Tania Berger, ARMEN-C [Primary Care Provider] - 3-5 Days
[2020-01-03] MEDS: Ceftriaxone 1 GM/50 ML BAG IV (13:03)
[2020-01-03] MEDS: Ipratropium/Albuterol Sulfate 3 ML AMPUL.NEB INHALATION ×2 (16:34→20:04)
[2020-01-03] MEDS: Budesonide Respules 0.5 MG/2 ML AMPUL.NEB. INHALATION (20:03)
--- NOTE | 2020-01-03 20:14 | CPS ---
sleep lab bipap placed in room with 18/12 and 2 l/m bleed in distilled water added to chamber
--- NOTE | 2020-01-03 20:20 | NURSING ---
Per Lizabeth from [facility], pt uses bipap at home.
[2020-01-03] MEDS: Acetaminophen 325 MG Tablet 650 MG PO (21:53)
[2020-01-03] MEDS: Atorvastatin Calcium 80 MG Tablet PO (21:58)
[2020-01-03] MEDS: Metoprolol(XL)Succ 50 MG Tablet PO (21:58)
[2020-01-03] MEDS: Pantoprazole Sodium 40 MG Tablet PO (21:58)
[2020-01-03] MEDS: 0.9% Saline Lock 10 ML Syringe IV (22:02)
--- NOTE | 2020-01-03 22:58 | CPS ---
o2 increased to 3 l/m for low sat
[2020-01-04] VITALS (20 sets, daily range): BP systolic 116–188; BP diastolic 54–78; PULSE 70–111; RESP 12–39; TEMP 36.2–37.9; O2SAT 3–100
[2020-01-04] MEDS: ALPRAZolam 0.5 MG Tablet 1 MG PO (00:59)
[2020-01-04] MEDS: Budesonide Respules 0.5 MG/2 ML AMPUL.NEB. INHALATION ×3 (06:56→20:03)
[2020-01-04] MEDS: Ipratropium/Albuterol Sulfate 3 ML AMPUL.NEB INHALATION ×3 (06:56→20:03)
--- NOTE | 2020-01-04 09:10 | CON.PCM_ITS ---
Consultation - Renal PCP/ Referring MD: Requesting physician: [] Primary care physician: SEUN Poe - History of Present Illness History of Present Illness: The patient is a 69 year old M PMH of ESRD on HHD 5 days weekly . Pt presented with possible infection/cellulitis over the LUE AVF Pt has not had HD for 2 days before admission due to the above issue. Chest xray yesterday showed mild stable b/l infiltrates and patient was admitted for pneumonia Pt is feeling well. Pt is not on Abx. No fever No cough ROS: 12 system review is negative[] - Allergies Allergies: Allergies irbesartan [From Avapro] Allergy (Severe, Verified 01/03/20 10:55) Blisters zolpidem [From Ambien] Adverse Reaction (Severe, Verified 01/03/20 10:55) made me go crazy, memory loss amoxicillin Adverse Reaction (Intermediate, Verified 01/03/20 10:55) PASSES BLOOD IN STOOL TOLERATES ZOSYN PASSES BLOOD IN STOOL metronidazole [From Flagyl] Adverse Reaction (Verified 01/03/20 10:55) pt states he got palpitations and nose bleed. pt states he got palpitations and nose bleed. - Current Medications Current Medications: Current Medications Acetaminophen (Tylenol) 650 mg PO Q6H PRN PRN PRN Reason: Pain Score 1-10/Temp > 100.7 F Last Admin: 01/03/20 21:53 Dose: 650 mg Documented by: Albuterol/Ipratropium (Duoneb) 3 ml INHALATION Q4H PRN PRN PRN Reason: SOB &/OR WHEEZING Last Admin: 01/04/20 06:56 Dose: 3 ml Documented by: Atorvastatin Calcium (Lipitor) 80 mg PO QHS [facility] Last Admin: 01/03/20 21:58 Dose: 80 mg Documented by: Budesonide (Pulmicort Aerosol) 0.5 mg INHALATION TID [facility] Last Admin: 01/04/20 06:56 Dose: 0.5 mg Documented by: Glucagon () 1 mg IM .X1 PRN PRN Reason: Hypoglycemia Dextrose (Dextrose 10%-Water) 250 mls @ 999 mls/hr IV .Q16M PRN; Protocol PRN Reason: HYPOGLYCEMIA Metoprolol Succinate (Toprol Xl (Beta Kadi)) 50 mg PO BID [facility] Last Admin: 03/19/20 21:58 Dose: 50 mg Documented by: Pantoprazole Sodium (Protonix) 40 mg PO BID [facility] Last Admin: 01/03/20 21:58 Dose: 40 mg Documented by: Sodium Chloride () 10 - 40 ml IV UD PRN PRN Reason: SALINE FLUSH Last Admin: 01/03/20 22:02 Dose: 10 ml Documented by: Tamsulosin HCl (Flomax) 0.8 mg PO DAILY [facility] - Past Medical History Past Medical History (Chronic Problems): Chronic Problems (Last Reviewed 01/03/20 @ 14:[address] Chris Stark DO) Transudative pleural effusion (Chronic) Chronic atrial fibrillation (Chronic) Problem with dialysis access (Chronic) RAVEN (obstructive sleep apnea) (Chronic) AHI 426. ESRD (end stage renal disease) (Chronic) History of non-ST elevation myocardial infarction (NSTEMI) (Chronic 01/21/11) Atherosclerotic heart disease of [place] coronary artery without angina pectoris (Chronic) 2003, JASON to circumflex ; 10/10/2009 tsfer from [facility] to [facility], total of 5 bare metal stents to RCA; CABG X 3 vessels @ [facility] 01/31/2011 (critical left main and restenosis of RCA stents) Diastolic CHF (Chronic) HLD (hyperlipidemia) (Chronic) HTN (hypertension) (Chronic) PAD (peripheral artery disease) (Chronic) COPD (chronic obstructive pulmonary disease) (Chronic) Tobacco dependence (Chronic) Anemia (Chronic) BPH (benign prostatic hyperplasia) (Chronic) - Past Surgical History Surgical History: coronary bypass surgery, tonsillectomy, - - CABG x3, multiple PCI coronary arteries, right common iliac angioplasty and stenting, aVF, tonsillectomy, multiple endoscopies with intervention. - Social History Smoking Status: Former smoker - Family History Maternal Family History: Family History (Last Reviewed 01/03/20 @ 14:[address] Chris Stark DO) Father CAD (coronary artery disease) Hypertension Kidney disease CVA (cerebral vascular accident) Other Cancer History Items: Heart Disease Paternal Family History: Family History (Last Reviewed 01/03/20 @ 14:[address] Chris Stark DO) Father CAD (coronary artery disease) Hypertension Kidney disease CVA (cerebral vascular accident) Other Cancer History Items: Heart Disease, Hypertension, Renal Disease Patient Problems: Active and Suspected Problems (Last Reviewed 01/03/20 @ 14:[address] Chris Stark, DO) Pneumonia (Acute) - Physical Exam Vitals/I&O's: Vital Signs Temp Pulse Resp BP Pulse Ox 97.1 F L 71 20 H 136/57 H 100 01/04/20 07:00 01/04/20 07:00 01/04/20 07:00 01/04/20 07:00 01/04/20 07:00 Oxygen Flow Rate (L/min) 3 Oxygen Delivery Method Bi-pap Weight: 65 kg Body Mass Index (BMI) 22.6 Finger Stick Blood Glucose 200 Intake and Output for Last 24 Hours 01/02/20 01/03/20 01/04/20 23:59 23:59 23:59 Intake Total 225 / 225 300 / 300 Balance 225 / 225 300 / 300 General: Alert, Oriented x3 HEENT: Atraumatic Oral: Moist Mucosa Neck: Supple, No JVD Lungs: Rhonchi Cardiovascular: Regular rate, Regular Rhythm, Normal S1 Abdomen: Bowel Sounds Present, Soft, Non Tender, Non-Distended Extremities: No clubbing, No cyanosis, No edema Skin: No rashes Musculoskeletal: No Tenderness to Palpation of Joints or Extremities Lymphatic: No Cervical, Supraclavicular, or Inguinal Adenopathy Neurological: Cranial nerves II-XII grossly intact, Neuro grossly intact Psych/Mental Status: Appropriate Laboratory Results 01/03/20 11:40: WBC 9.2, RBC 2.87 L, Hgb 8.9 L, Hct 28.1 L, MCV 97.9 H, MCH 31.0, MCHC 31.7 L, RDW Std Deviation 59.3 H, RDW Coeff of Eleni 16.5 H, Plt Count 238, MPV 9.1, Immature Gran % (Auto) 0.500, Neut % (Auto) 75.1 H, Lymph % (Auto) 11.9 L, [place] % (Auto) 8.9, Eos % (Auto) 3.4, Baso % (Auto) 0.2, Absolute Neuts (auto) 6.9, Absolute Lymphs (auto) 1.09, Nucleated RBC % 0 01/03/20 11:40: Sodium 129 L, Potassium 4.9, Chloride 92 L, Carbon Dioxide 26.0, Anion Gap 11, BUN 74 H, Creatinine 7.35 H, Estim Creat Clear Calc 8.68, Est GFR (MDRD) Af Amer 10 L, Est GFR (MDRD) Non-Af 8 L, BUN/Creatinine Ratio 10.1, Glucose 91, Calcium 9.4, Total Bilirubin 0.60, AST 21, ALT 21, Alkaline Phosphatase 132 H, Total Protein 7.4, Albumin 2.7 L, Globulin 4.7 H, Albumin/Globulin Ratio 0.6 L 01/03/20 11:40: Lactic Acid 0.7 Current Medications Acetaminophen (Tylenol) 650 mg PO Q6H PRN PRN PRN Reason: Pain Score 1-10/Temp > 100.7 F Last Admin: 01/03/20 21:53 Dose: 650 mg Documented by: Albuterol/Ipratropium (Duoneb) 3 ml INHALATION Q4H PRN PRN PRN Reason: SOB &/OR WHEEZING Last Admin: 01/04/20 06:56 Dose: 3 ml Documented by: Atorvastatin Calcium (Lipitor) 80 mg PO QHS [facility] Last Admin: 01/03/20 21:58 Dose: 80 mg Documented by: Budesonide (Pulmicort Aerosol) 0.5 mg INHALATION TID [facility] Last Admin: 01/04/20 06:56 Dose: 0.5 mg Documented by: Glucagon () 1 mg IM .X1 PRN PRN Reason: Hypoglycemia Dextrose (Dextrose 10%-Water) 250 mls @ 999 mls/hr IV .Q16M PRN; Protocol PRN Reason: HYPOGLYCEMIA Metoprolol Succinate (Toprol Xl (Beta Kadi)) 50 mg PO BID [facility] Last Admin: 01/03/20 21:58 Dose: 50 mg Documented by: Pantoprazole Sodium (Protonix) 40 mg PO BID [facility] Last Admin: 01/03/20 21:58 Dose: 40 mg Documented by: Sodium Chloride () 10 - 40 ml IV UD PRN PRN Reason: SALINE FLUSH Last Admin: 01/03/20 22:02 Dose: 10 ml Documented by: Tamsulosin HCl (Flomax) 0.8 mg PO DAILY [facility] Assessment/Plan All Active Problems (Last Reviewed 01/03/20 @ 14:[address] Chris Stark, DO) Pneumonia (Acute) s/p fistulogram (Resolved ~09/28/18) history of surgically created arteriovenous fistula (Resolved) Stented coronary artery (Resolved) S/P CABG x 3 (Resolved 01/26/11) Status post peripheral artery angioplasty with insertion of stent (Resolved ~2010) 1- ESRD on HHD. Pt did not have HD sessions for 2 days before admission Will arrange for HD session today for 3 hours and 30 minutes with 2L UF No infection of AVF 2- Anemia: Hgb 8.9. continue RITCHIE with HD sessions as scheduled as OP 3- HTN: Bp is well controlled on metoprolol Ok to d/c patient after HD today from nephro stand point Please call if any question at [phone] Amanda Livingston MD
--- NOTE | 2020-01-04 13:18 | CT_ITS ---
STUDY: CT CHEST WITHOUT CONTRAST REASON FOR EXAM: Male, 69 years old. SOB, PLEURAL EFFUSION RADIATION DOSAGE (If Supplied By Facility): CTDIvol = ( 16.80 ) mGy, DLP = ( 667.35 ) mGycm TECHNIQUE: Transaxial imaging was performed without the administration of intravenous contrast material. Multiplanar coronal and sagittal images were reformatted. Individualized dose optimization techniques were used for this CT. COMPARISON: Comparison is made with prior examination dated November 15, 2019. FINDINGS: Moderate degree of bilateral pleural effusions right greater than left with bibasilar infiltration and/or atelectasis. Emphysematous changes worse in the upper lobes. There is evidence of a diffuse bilateral areas of the groundglass appearance. This is essentially unchanged. There are calcifications of the coronary arteries. There is moderate cardiac enlargement. There are multiple small lymph nodes within the mediastinum, which are slightly increased in size and morphology most compatible with reactive lymph hyperplasia. Normal hilar regions. Normal unenhanced pulmonary arteries. There is atherosclerotic calcification of the aortic arch with tortuosity and elongation of the aortic arch and descending thoracic aorta. There are multi-level degenerative changes of the thoracic spine. There is no demonstrated abnormality of the visualized upper abdomen. CT/Chest without Contrast IMPRESSION: Weren''t again, bilateral moderate pleural effusions with atelectasis at the lung bases. Stable diffuse bilateral groundglass appearance with the evidence of the cystic changes in the upper lobes suggestive of a emphysematous change. Stable slightly enlarged mediastinal lymph nodes. Electronically Signed: Deven Hensley, at 14:30 EDT , Service support ,
--- NOTE | 2020-01-04 13:18 | CPS ---
Attempted to take patient off PAP for breathing treatments. Patient unable to tolerate coming off. Patient placed on V60 PAP unit from sleep lab machine to give breathing treatments.
--- NOTE | 2020-01-04 14:11 | PN_ITS ---
Patient Problems: Active and Suspected Problems (Last Reviewed 01/03/20 @ 14:[address] Chris Strak, DO) Pneumonia (Acute) Subjective: Patient seen and examined. He was admitted from his dialysis center after he was noted to be having pus coming from his dialysis fistula site. He also had a chest x-ray done which was concerning for pneumonia patient received Rocephin prior however this was not continued upon admission as per review of history and physical, it was thought that chest x-ray was normal consistent with pulmonary vascular congestion rather than pneumonia and also because he had a normal white cell count and normal vital signs. Patient seen today. He was on BiPAP and complained of shortness of breath, he denied any palpitations or dizziness, cough or nausea vomiting. Review of symptoms otherwise negative. He had not noticed any pus coming from the dialysis site anymore. Labs and vitals reviewed. Have a mild fever last night peaking at 100 Fahrenheit but temperature has been fine this morning at 99 Fahrenheit. Vitals/I&O's: Vital Signs Temp Pulse Resp BP Pulse Ox 99.0 F 96 39 H 168/78 H 98 01/04/20 13:06 01/04/20 13:17 01/04/20 13:50 01/04/20 13:06 01/04/20 13:17 Oxygen Flow Rate (L/min) 100 Oxygen Delivery Method Bi-pap Weight: 143 lb 4.807 oz Body Mass Index (BMI) 22.6 Finger Stick Blood Glucose 200 Intake and Output for Last 24 Hours 01/02/20 01/03/20 01/04/20 23:59 23:59 23:59 Intake Total 225 / 225 300 / 300 Balance 225 / 225 300 / 300 General: Alert, Oriented x3, Cooperative, Lethargic HEENT: Atraumatic, PERRLA, EOMI, Normocephalic Oral: Dry Mucosa Neck: Supple, No JVD, Negative Carotid Bruits Lungs: Tachypneic, - - decreased breath sounds bibasally, no wheezes or crackles. on BIPAP. Cardiovascular: Regular rate, Regular Rhythm, Normal S1, Normal S2, No murmurs Abdomen: Bowel Sounds Present, Soft, Non Tender, Non-Distended, No Hepato- splenomegaly Extremities: No clubbing, No cyanosis, No edema, Capillary Refill Less than 3 Seconds Skin: No rashes Musculoskeletal: No Tenderness to Palpation of Joints or Extremities Lymphatic: No Cervical, Supraclavicular, or Inguinal Adenopathy Neurological: Cranial nerves II-XII grossly intact, Neuro grossly intact, Motor Exam 5/5 strength throughout Psych/Mental Status: Normal Affect, Appropriate, Alert and oriented to time, place, person, mood and affect Laboratory Results 01/04/20 11:10: WBC Cancelled, Corrected WBC Cancelled, RBC Cancelled, Hgb Cancelled, Hct Cancelled, MCV Cancelled, MCH Cancelled, MCHC Cancelled, RDW Std Deviation Cancelled, RDW Coeff of Eleni Cancelled, Plt Count Cancelled, MPV Cancelled, Immature Gran % (Auto) Cancelled, Neut % (Auto) Cancelled, Lymph % (Auto) Cancelled, [place] % (Auto) Cancelled, Eos % (Auto) Cancelled, Baso % (Auto) Cancelled, Absolute Neuts (auto) Cancelled, Absolute Lymphs (auto) Cancelled, Total Counted Cancelled, Neutrophils % (Manual) Cancelled, Band Neutrophils % Cancelled, Lymphocytes % (Manual) Cancelled, Monocytes % (Manual) Cancelled, Eosinophils % (Manual) Cancelled, Basophils % (Manual) Cancelled, Metamyelocytes % Cancelled, Myelocytes % Cancelled, Promyelocytes % Cancelled, Blast Cells % Cancelled, Plasma Cell % (Manual) Cancelled, Other Cells % Cancelled, Nucleated RBC % Cancelled, Nucleated RBCs/100 WBC Cancelled, Differential Comment Cancelled, Diff Path Review Cancelled, Hypersegmented Neuts Cancelled, Atypical Lymphocytes Cancelled, Reactive Lymphocytes Cancelled, Smudge Cells Cancelled, Toxic Granulation Cancelled, Toxic Vacuolation Cancelled, Dohle Bodies Cancelled, Jer Rods Cancelled, Platelet Estimate Cancelled, Plt Morphology Comment Cancelled, RBC Morphology Cancelled, Polychromasia Cancelled, Hypochromasia Cancelled, Poikilocytosis Cancelled, Basophilic Stippling Cancelled, Anisocytosis Cancelled, Microcytosis Cancelled, Macrocytosis Cancelled, Spherocytes Cancelled, Sickle Cells Cancelled, Target Cells Cancelled, Tear Drop Cells Cancelled, Ovalocytes Cancelled, Stomatocytes Cancelled, [place] Bodies Cancelled, Zach Cells Cancelled, Bite Cells Cancelled, Crenated Cell Cancelled, Acanthocytes (Spur) Cancelled, Rouleaux Cancelled, Schistocytes Cancelled Diagnostic Data Chest X-Ray 01/03/20 11:26 IMPRESSION: Stable examination with evidence of bilateral pleural effusions and bibasilar atelectasis with findings suggestive of a CHF and possible bilateral infiltrates. Electronically Signed: Deven Hensley, at 11:48 EDT , Service support , Current Medications Acetaminophen (Tylenol) 650 mg PO Q6H PRN PRN PRN Reason: Pain Score 1-10/Temp > 100.7 F Last Admin: 01/03/20 21:53 Dose: 650 mg Documented by: Albuterol/Ipratropium (Duoneb) 3 ml INHALATION Q4H PRN PRN PRN Reason: SOB &/OR WHEEZING Last Admin: 01/04/20 12:59 Dose: 3 ml Documented by: Atorvastatin Calcium (Lipitor) 80 mg PO QHS [facility] Last Admin: 01/03/20 21:58 Dose: 80 mg Documented by: Budesonide (Pulmicort Aerosol) 0.5 mg INHALATION TID [facility] Last Admin: 01/04/20 12:59 Dose: 0.5 mg Documented by: Glucagon () 1 mg IM .X1 PRN PRN Reason: Hypoglycemia Dextrose (Dextrose 10%-Water) 250 mls @ 999 mls/hr IV .Q16M PRN; Protocol PRN Reason: HYPOGLYCEMIA Metoprolol Succinate (Toprol Xl (Beta Kadi)) 50 mg PO BID [facility] Last Admin: 01/03/20 21:58 Dose: 50 mg Documented by: Pantoprazole Sodium (Protonix) 40 mg PO BID [facility] Last Admin: 01/03/20 21:58 Dose: 40 mg Documented by: Sodium Chloride () 10 - 40 ml IV UD PRN PRN Reason: SALINE FLUSH Last Admin: 01/03/20 22:02 Dose: 10 ml Documented by: Tamsulosin HCl (Flomax) 0.8 mg PO DAILY [facility] STROKE Vital Signs/Narrative: Vital Signs Temp Pulse Resp BP Pulse Ox 01/04/20 13:50 39 H 01/04/20 13:17 96 35 H 98 01/04/20 13:06 99.0 F 98 30 H 168/78 H 01/04/20 12:57 93 26 H 97 01/04/20 10:33 98.3 F 80 20 H 152/64 H 3 Medical Necessity - Tobacco Use Smoking Status: Former smoker Assessment/Plan All Active Problems (Last Reviewed 01/03/20 @ 14:[address] Chris Stark, DO) Pneumonia (Acute) s/p fistulogram (Resolved ~09/28/18) history of surgically created arteriovenous fistula (Resolved) Stented coronary artery (Resolved) S/P CABG x 3 (Resolved 01/26/11) Status post peripheral artery angioplasty with insertion of stent (Resolved ~2010) 1. ESRD * Missed dialysis yesterday as he was sent in because though suspected to be passed at the dialysis fistula site. * No pus visualized on admission he has minimal redness and tenderness as well as pain at site of fistula * nephrology consulted. For dialysis today * 2. acute on chronic hypoxic respiratory failure due to REcurernt pleural effusion * She has a history of recurrent pleural effusions with repeated thoracentesis. * Required BiPAP overnight and was complaining of worsening shortness of breath today. Chest stat chest CT done which per my personal review, showed bilateral pleural effusion worse than the right. Official reading waiting. * Pulmonology consulted. * Wean off BiPAP as tolerated. * Breathing treatments with DuoNeb's. * to have dialysis today, which will help somewhat with removal of fluid. 3. CAD s/p stent and CABG: On statin and metoprolol. 4. Chronic Afib: Rate controlled. On metoprolol. Not on anticoagulation due to history of GI bleed. 5. COPD: BiPAP overnight and account of worsening shortness of breath and pleural effusion. Breathing treatments with bronchodilators. Pulmonology con sulted. 6. Peripheral vascular disease: S/p right common iliac angioplasty and PCI. On statin. Not on aspirin on account of history of GI bleed. DVT prophylaxis: [facility] Inpatient E&M: [address] [facility]
--- NOTE | 2020-01-04 16:28 | CON.PCM_ITS ---
Problem List (1) Chronic atrial fibrillation Status: Chronic (2) Problem with dialysis access Status: Chronic Qualifiers: Encounter type: initial encounter Qualified Code(s): T82.898A - Other specified complication of vascular prosthetic devices, implants and grafts, initial encounter (3) RAVEN (obstructive sleep apnea) Status: Chronic Comment: AHI 426. (4) ESRD (end stage renal disease) Status: Chronic (5) History of non-ST elevation myocardial infarction (NSTEMI) Status: Chronic (6) Stented coronary artery Status: Resolved Comment: 2003, JASON to circumflex ; 10/13/2009 tsfer from [facility] to [facility], total of 5 bare metal stents to [facility]: 3.5 X 18 Growth Media Mixer Mushroom, followed distally by 3.0 X12 Growth Media Mixer Mushroom to distal RCA;3.5 X 15 Growth Media Mixer Mushroom, followed proximally by 4.0 X 18 Growth Media Mixer Mushroom to Mid RCA; 4.0 X 18 Growth Media Mixer Mushroom to Proximal RCA (7) S/P CABG x 3 Status: Resolved Comment: [facility] per Dr. Osito Hernandez: NICHOLAS to LAD, reverse SVG to OMbranch of CX, reverse SVG to PDA of RCA. PDA endarterectomy. (8) Diastolic CHF Status: Chronic Qualifiers: (9) HLD (hyperlipidemia) Status: Chronic Qualifiers: (10) HTN (hypertension) Status: Chronic Qualifiers: (11) PAD (peripheral artery disease) Status: Chronic (12) COPD (chronic obstructive pulmonary disease) Status: Chronic Qualifiers: (13) Tobacco dependence Status: Chronic Reason for Consult Date of Consultation: 01/04/20 Reason for Consultation: Shortness of breath History of Present Illness: The patient is a 69 year old M, with past medical history listed below and well- known to me from previous evaluations, who presented [facility] on 01/03/2020 secondary to concern for a fistula infection. Patient reportedly had not had dialysis in last 2 days secondary to difficulty with access. Patient does do home dialysis at baseline. Patient has had some shortness of breath which she states is mild and a cough that is nonproductive. No abdominal pain has been reported. Patient reports normal ostomy output. In the ER, patient was noted to be hemodynamically stable. Patient with not having any significant signs of cellulitis, but was placed on antibiotics and admitted to the floor for further evaluation. No pus was noted from the dialysis site. Patient reportedly did have mild fever at home, but no fever was noted in the ER. Patient with BiPAP on my arrival. Patient states that he was breathing okay and came in more for his dialysis infection none any breathing issues. Patient denied any chest pain. No trauma has been reported. Patient did have a CT scan showing bilateral pleural effusions with compressive atelectasis. Review of systems otherwise negative from a constitutional, HEENT, respiratory, cardiovascular, GI, genitourinary, musculoskeletal, skin, neurologic, psychiatric and hematologic system unless stated above. Past Medical History Past Medical History (Chronic Problems): Chronic Problems (Last Reviewed 01/03/20 @ 14:[address] Chris Stark DO) Transudative pleural effusion (Chronic) Chronic atrial fibrillation (Chronic) Problem with dialysis access (Chronic) RAVEN (obstructive sleep apnea) (Chronic) AHI 426. ESRD (end stage renal disease) (Chronic) History of non-ST elevation myocardial infarction (NSTEMI) (Chronic 01/21/11) Atherosclerotic heart disease of [place] coronary artery without angina pectoris (Chronic) 2003, JASON to circumflex ; 10/10/2009 tsfer from [facility] to [facility], total of 5 bare metal stents to RCA; CABG X [address] [facility] 01/31/2011 (critical left main and restenosis of RCA stents) Diastolic CHF (Chronic) HLD (hyperlipidemia) (Chronic) HTN (hypertension) (Chronic) PAD (peripheral artery disease) (Chronic) COPD (chronic obstructive pulmonary disease) (Chronic) Tobacco dependence (Chronic) Anemia (Chronic) BPH (benign prostatic hyperplasia) (Chronic) Medical History: Medical History (Last Reviewed 01/03/20 @ 14:[address] Chris Stark DO) ESRD (end stage renal disease) (Chronic) N18.6 History of non-ST elevation myocardial infarction (NSTEMI) (Chronic) Onset Date: 01/21/11 I25.2 Atherosclerotic heart disease of [place] coronary artery without angina pectoris (Chronic) I25.10 2003, JASON to circumflex ; 10/10/2009 tsfer from [facility] to [facility], total of 5 bare metal stents to RCA; CABG X [address] [facility] 01/31/2011 (critical left main and restenosis of RCA stents) Diastolic CHF (Chronic) I50.30 HLD (hyperlipidemia) (Chronic) E78.5 HTN (hypertension) (Chronic) I10 PAD (peripheral artery disease) (Chronic) I73.9 COPD (chronic obstructive pulmonary disease) (Chronic) J44.9 Tobacco dependence (Chronic) F17.200 Anemia (Chronic) D64.9 BPH (benign prostatic hyperplasia) (Chronic) N40.0 Allergies irbesartan [From Avapro] Allergy (Severe, Verified 01/03/20 10:55) Blisters zolpidem [From Ambien] Adverse Reaction (Severe, Verified 01/03/20 10:55) made me go crazy, memory loss amoxicillin Adverse Reaction (Intermediate, Verified 01/03/20 10:55) PASSES BLOOD IN STOOL TOLERATES ZOSYN PASSES BLOOD IN STOOL metronidazole [From Flagyl] Adverse Reaction (Verified 01/03/20 10:55) pt states he got palpitations and nose bleed. pt states he got palpitations and nose bleed. Home Medications: Ambulatory Orders Medication Instructions Recorded Budesonide Aerosol [Pulmicort 1 inh INHALATION TID 07/23/19 Respules] Ipratropium/Albuterol Sulfate 1 inh INHALATION Q4H PRN PRN 07/23/19 [Iprat-Albut 0.5-3(2.5) mg/3 ml] Omeprazole 40 mg PO BID 07/23/19 Rosuvastatin Calcium [Crestor] 40 mg PO QHS 07/23/19 Tamsulosin HCl [Flomax] 0.8 mg PO DAILY 07/23/19 Metoprolol Succinate [Toprol Xl] 50 mg PO BID 08/08/19 Surgical History: Surgical History (Last Reviewed 01/03/20 @ 14:[address] Chris Stark, DO) s/p fistulogram (Resolved) Onset Date: ~09/28/18 history of surgically created arteriovenous fistula (Resolved) Stented coronary artery (Resolved) Z95.5 2004, JASON to circumflex ; 10/13/2009 tsfer from [facility] to [facility], total of 5 bare metal stents to RCA per Dr. Barrientos @ [facility]: 3.5 X 18 Growth Media Mixer Mushroom, followed distally by 3.0 X12 Growth Media Mixer Mushroom to distal RCA;3.5 X 15 Growth Media Mixer Mushroom, followed proximally by 4.0 X 18 Growth Media Mixer Mushroom to Mid RCA; 4.0 X 18 Growth Media Mixer Mushroom to Proximal RCA S/P CABG x 3 (Resolved) Onset Date: 01/26/11 Z95.1 [facility] per Dr. Osito Hernandez: NICHOLAS to LAD, reverse SVG to OMbranch of CX, reverse SVG to PDA of RCA. PDA endarterectomy. Status post peripheral artery angioplasty with insertion of stent (Resolved) Onset Date: ~2010 Z95.820 Right common iliac, [facility] Surgical History: coronary bypass surgery, tonsillectomy, - - CABG x3, multiple PCI coronary arteries, right common iliac angioplasty and stenting, aVF, tonsillectomy, multiple endoscopies with intervention. Psychiatric History: Anxiety Smoking Status: Former smoker - *Family History Maternal Family History: Family History (Last Reviewed 01/03/20 @ 14:[address] Chris Stark DO) Father CAD (coronary artery disease) Hypertension Kidney disease CVA (cerebral vascular accident) Other Cancer History Items: Heart Disease Paternal Family History: Family History (Last Reviewed 01/03/20 @ 14:[address] Chris Stark DO) Father CAD (coronary artery disease) Hypertension Kidney disease CVA (cerebral vascular accident) Other Cancer History Items: Heart Disease, Hypertension, Renal Disease Review of Systems Comment: See HPI Patient Problems: Active and Suspected Problems (Last Reviewed 01/03/20 @ 14:[address] Chris Stark DO) Pneumonia (Acute) - Physical Exam Vitals/I&O's: Vital Signs Temp Pulse Resp BP Pulse Ox 37.4 C H 94 39 H 152/60 H 100 01/04/20 15:30 01/04/20 15:30 01/04/20 15:30 01/04/20 15:30 01/04/20 15:30 Oxygen Flow Rate (L/min) 100 Oxygen Delivery Method Bi-pap Weight: 65 kg Body Mass Index (BMI) 22.6 Finger Stick Blood Glucose 200 Intake and Output for Last 24 Hours 01/02/20 01/03/20 01/04/20 23:59 23:59 23:59 Intake Total 225 / 225 300 / 300 Balance 225 / 225 300 / 300 General: Alert, Oriented x3, Cooperative, - HEENT: Atraumatic, PERRLA, EOMI, Normocephalic Oral: Moist Mucosa, No Gingival or Mucosal Lesions/ Ulcerations Neck: Supple, No JVD, No Nodes, Trachea Midline Lungs: No rhonchi, No wheeze, No rales, Diminished Cardiovascular: Regular rate, Regular Rhythm, Normal S1, Normal S2, No murmurs, No rub noted, No Gallop Abdomen: Bowel Sounds Present, Soft, Non Tender, Non-Distended Extremities: No cyanosis, Capillary Refill Less than 3 Seconds, Edema Skin: No rashes Musculoskeletal: No Tenderness to Palpation of Joints or Extremities Lymphatic: No Cervical, Supraclavicular, or Inguinal Adenopathy Neurological: Cranial nerves II-XII grossly intact, Neuro grossly intact, Motor Exam 5/5 strength throughout Psych/Mental Status: Anxious, Restless Laboratory Results 01/04/20 11:10: WBC Cancelled, Corrected WBC Cancelled, RBC Cancelled, Hgb Cancelled, Hct Cancelled, MCV Cancelled, MCH Cancelled, MCHC Cancelled, RDW Std Deviation Cancelled, RDW Coeff of Eleni Cancelled, Plt Count Cancelled, MPV Cancelled, Immature Gran % (Auto) Cancelled, Neut % (Auto) Cancelled, Lymph % (Auto) Cancelled, [place] % (Auto) Cancelled, Eos % (Auto) Cancelled, Baso % (Auto) Cancelled, Absolute Neuts (auto) Cancelled, Absolute Lymphs (auto) Cancelled, Total Counted Cancelled, Neutrophils % (Manual) Cancelled, Band Neutrophils % Cancelled, Lymphocytes % (Manual) Cancelled, Monocytes % (Manual) Cancelled, Eosinophils % (Manual) Cancelled, Basophils % (Manual) Cancelled, Metamyelocytes % Cancelled, Myelocytes % Cancelled, Promyelocytes % Cancelled, Blast Cells % Cancelled, Plasma Cell % (Manual) Cancelled, Other Cells % Cancelled, Nucleated RBC % Cancelled, Nucleated RBCs/100 WBC Cancelled, Differential Comment Cancelled, Diff Path Review Cancelled, Hypersegmented Neuts Cancelled, Atypical Lymphocytes Cancelled, Reactive Lymphocytes Cancelled, Smudge Cells Cancelled, Toxic Granulation Cancelled, Toxic Vacuolation Cancelled, Dohle Bodies Cancelled, Jer Rods Cancelled, Platelet Estimate Cancelled, Plt Morphology Comment Cancelled, RBC Morphology Cancelled, Polychromasia Cancelled, Hypochromasia Cancelled, Poikilocytosis Cancelled, Basophilic Stippling Cancelled, Anisocytosis Cancelled, Microcytosis Cancelled, Macrocytosis Cancelled, Spherocytes Cancelled, Sickle Cells Cancelled, Target Cells Cancelled, Tear Drop Cells Cancelled, Ovalocytes Cancelled, Stomatocytes Cancelled, [place] Bodies Cancelled, Zach Cells Cancelled, Bite Cells Cancelled, Crenated Cell Cancelled, Acanthocytes (Spur) Cancelled, Rouleaux Cancelled, Schistocytes Cancelled Current Medications Acetaminophen (Tylenol) 650 mg PO Q6H PRN PRN PRN Reason: Pain Score 1-10/Temp > 100.7 F Last Admin: 01/03/20 21:53 Dose: 650 mg Documented by: Albuterol/Ipratropium (Duoneb) 3 ml INHALATION Q4H PRN PRN PRN Reason: SOB &/OR WHEEZING Last Admin: 01/04/20 12:59 Dose: 3 ml Documented by: Atorvastatin Calcium (Lipitor) 80 mg PO QHS [facility] Last Admin: 01/03/20 21:58 Dose: 80 mg Documented by: Budesonide (Pulmicort Aerosol) 0.5 mg INHALATION TID [facility] Last Admin: 01/04/20 12:59 Dose: 0.5 mg Documented by: Glucagon () 1 mg IM .X1 PRN PRN Reason: Hypoglycemia Dextrose (Dextrose 10%-Water) 250 mls @ 999 mls/hr IV .Q16M PRN; Protocol PRN Reason: HYPOGLYCEMIA Metoprolol Succinate (Toprol Xl (Beta Kadi)) 50 mg PO BID [facility] Last Admin: 01/04/20 16:12 Dose: Not Given Documented by: Pantoprazole Sodium (Protonix) 40 mg PO BID [facility] Last Admin: 01/04/20 16:12 Dose: Not Given Documented by: Sodium Chloride () 10 - 40 ml IV UD PRN PRN Reason: SALINE FLUSH Last Admin: 01/03/20 22:02 Dose: 10 ml Documented by: Tamsulosin HCl (Flomax) 0.8 mg PO DAILY [facility] Last Admin: 01/04/20 16:12 Dose: Not Given Documented by: Clinical Impression(s) from Imaging Studies Chest CT 01/04/20 13:18 IMPRESSION: Weren''t again, bilateral moderate pleural effusions with atelectasis at the lung bases. Stable diffuse bilateral groundglass appearance with the evidence of the cystic changes in the upper lobes suggestive of a emphysematous change. Stable slightly enlarged mediastinal lymph nodes. Electronically Signed: Deven Hensley, at 14:30 EDT , Service support , Assessment/Plan All Active Problems (Last Reviewed 01/03/20 @ 14:[address] Chris Stark, DO) Pneumonia (Acute) s/p fistulogram (Resolved ~09/28/18) history of surgically created arteriovenous fistula (Resolved) Stented coronary artery (Resolved) S/P CABG x 3 (Resolved 01/26/11) Status post peripheral artery angioplasty with insertion of stent (Resolved ~2010) RECOMMENDATIONS: 1. Continue volume optimization with hemodialysis per nephrology recommendations. 2. Transfuse to maintain a hemoglobin at or above 7 g/dL. 3. Continue BiPAP therapy with naps and nightly. 4. Consider outpatient evaluation for Pleurx catheter 5. Wean supplemental oxygen to maintain saturations at or above 90%. Encourage incentive spirometer use and mobilize patient as tolerated. IMPRESSIONS: 1. Acute on chronic hypoxemic respiratory failure/known history of severe obstructive lung disease Patient CT scan shows consistent pleural effusions with groundglass opacities consistent with volume overload. Patient has had transudate laboratory work-up in the past. Patient does have some reported irritation at his dialysis site, but does not have a significant leukocytosis to suggest empyema or parapneumonic effusions. If patient is able to tolerate off of BiPAP, outpatient evaluation for Pleurx catheter may be appropriate given rapid reaccumulation of right-sided pleural effusion. If patient has respiratory difficulties, would proceed with a therapeutic thoracentesis of the right initially in the left if necessary. 2. Acute on chronic anemia The patient does have a history of prior GI bleed. Continue PPI therapy as ordered. Monitor H&H and transfuse to maintain a hemoglobin at or above 7 g/dL. 3. End-stage renal disease Nephrology following to assist with dialysis management. 4. Coronary artery disease/atrial fibrillation/peripheral vascular disease Continue baseline medication regimen. 5. Obstructive sleep apnea Continue BiPAP therapy with naps and nightly. 6. CODE STATUS Full code following discussion with patient and family. Inpatient E&M: 63025 Init Hosp L2
[2020-01-04 17:45] LABS: Absolute Neutrophil Count 9.4 X10^3/uL (2.0-7.7); Basophil# 0.03 X10^3/uL; Basophil% 0.3 % (0-1); Eosinophil# 0.14 X10^3/uL; Eosinophils% 1.3 % (0-5); Hematocrit 24.7 % (40-54); Hemoglobin 7.9 g/dL (13.0-16.5); Lymphocyte % 5.4 % (19-41); Mean Corpuscular Hgb 30.3 pg (27.0-32.0); Mean Corpuscular Volume 94.6 fL (80-94); Mean Platelet Vol. 9.4 fl (6.2-12.0); Monocyte# 0.88 X10^3/uL; Monocyte% 7.9 % (0-10); NRBC Flagged by Analyzer 0 % (0-5); Neutrophil # 9.39 X10^3/uL (2.7-7.7); Neutrophil % 84.5 % (47-70); POSITIVE DIFFERENTIAL YES; Platelet Count 240 K/mm3 (150-450); RBC Distribution Width CV 16.3 % (11.6-14.6); RBC Distribution Width SD 55.6 fl (35.1-43.9); Red Blood Count 2.61 M/mm3 (4.6-6.2); White Blood Count 11.1 K/mm3 (4.4-11.0)
[2020-01-04 17:50] LABS: Differential Indicated SCAN CRITERIA MET
[2020-01-04 18:04] LABS: Anion Gap 13 (5-15); BUN 101 mg/dL (7-18); BUN/Creat Ratio 10.6 RATIO (10-20); Calcium,Total 8.6 mg/dL (8.5-10.1); Chloride 94 mmol/L (98-107); Creatinine, Serum 9.53 mg/dL (0.70-1.30); EST Glomerular Filtration Rate 6 mL/min (>60); Est Glom Filt Rate - Afr Amer 7 mL/min (>60); Estimated Creatinine Clearance 6.69 ml/min; Glucose 120 mg/dL (74-106); Potassium 5.8 mmol/L (3.5-5.1); Sodium Level 129 mmol/L (136-145)
[2020-01-04 18:41] LABS: Anisocytosis 1+; Red Cell Morphology N CHROM NORMAL (NORM C&C)
[2020-01-04 18:42] LABS: Platelet Estimate ADEQUATE (ADEQ)
--- NOTE | 2020-01-04 21:21 | DIALYSIS ---
HD x3.5 hours completed at 2054, tolerated well, came off BiPap during dialysis and placed on 3L by floor staff, UF 2800mL, accessed via DAYAMI AVF using 15G needles, EMLA cream applied to AVF prior, DAYAMI red warm and excoriated, Dr. 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
[2020-01-04] MEDS: Pantoprazole Sodium 40 MG Tablet PO (22:16)
[2020-01-04] MEDS: Metoprolol(XL)Succ 50 MG Tablet PO (22:16)
[2020-01-04] MEDS: Atorvastatin Calcium 80 MG Tablet PO (22:16)
[2020-01-04] MEDS: hydrOXYzine 10 MG Tablet PO (22:38)
[2020-01-05] VITALS (8 sets, daily range): BP systolic 131–150; BP diastolic 48–62; PULSE 77–92; RESP 12–24; TEMP 36.4–37.6; O2SAT 94–99
[2020-01-05] MEDS: Acetaminophen 325 MG Tablet 650 MG PO ×2 (01:54→10:00)
[2020-01-05 06:49] LABS: Absolute Lymphocyte Count 0.72 X10^3/uL (0.83-4.51); Absolute Neutrophil Count 5.8 X10^3/uL (2.0-7.7); Basophil# 0.03 X10^3/uL; Basophil% 0.4 % (0-1); Eosinophil# 0.23 X10^3/uL; Hematocrit 26.4 % (40-54); Hemoglobin 8.3 g/dL (13.0-16.5); Lymphocyte # 0.72 X10^3/ul (4.0); Lymphocyte % 9.4 % (19-41); Mean Corp Hgb Conc 31.4 g/dL (32-36); Mean Corpuscular Hgb 30.4 pg (27.0-32.0); Mean Corpuscular Volume 96.7 fL (80-94); Mean Platelet Vol. 9.4 fl (6.2-12.0); Monocyte% 11.7 % (0-10); NRBC Flagged by Analyzer 0 % (0-5); Neutrophil # 5.76 X10^3/uL (2.7-7.7); Platelet Count 233 K/mm3 (150-450); RBC Distribution Width CV 16.3 % (11.6-14.6); RBC Distribution Width SD 58.4 fl (35.1-43.9); Red Blood Count 2.73 M/mm3 (4.6-6.2); White Blood Count 7.7 K/mm3 (4.4-11.0)
[2020-01-05] MEDS: Budesonide Respules 0.5 MG/2 ML AMPUL.NEB. INHALATION ×2 (06:59→13:10)
[2020-01-05 07:34] LABS: Anion Gap 11 (5-15); BUN 43 mg/dL (7-18); BUN/Creat Ratio 8.9 RATIO (10-20); Calcium,Total 8.1 mg/dL (8.5-10.1); Chloride 98 mmol/L (98-107); Creatinine, Serum 4.82 mg/dL (0.70-1.30); EST Glomerular Filtration Rate 13 mL/min (>60); Est Glom Filt Rate - Afr Amer 16 mL/min (>60); Estimated Creatinine Clearance 13.24 ml/min; Glucose 119 mg/dL (74-106); Potassium 3.5 mmol/L (3.5-5.1); Sodium Level 135 mmol/L (136-145)
[2020-01-05] MEDS: Tamsulosin HCl 0.4 MG Capsule 0.8 MG PO (09:20)
[2020-01-05] MEDS: Pantoprazole Sodium 40 MG Tablet PO (09:21)
[2020-01-05] MEDS: Metoprolol(XL)Succ 50 MG Tablet PO (09:21)
[2020-01-05] MEDS: hydrOXYzine 10 MG Tablet PO (09:21)
--- NOTE | 2020-01-05 09:48 | PCM.PN.PUL ---
Patient Problems: Active and Suspected Problems (Last Reviewed 01/03/20 @ 14:[address] Chris Stark, DO) Pneumonia (Acute) Subjective: Patient feels well this morning. Patient is on nasal cannula, but feels that he can get around okay. Patient did have hemodialysis yesterday with subjective improvement in overall condition. - Physical Exam Vitals/I&O's: Vital Signs Temp Pulse Resp BP Pulse Ox 36.4 C L 86 20 H 150/58 H 96 01/05/20 09:19 01/05/20 09:21 01/05/20 09:19 01/05/20 09:21 01/05/20 09:19 Oxygen Flow Rate (L/min) 3 Oxygen Delivery Method Nasal Cannula Weight: 65 kg Body Mass Index (BMI) 22.6 Finger Stick Blood Glucose 200 Intake and Output for Last 24 Hours 01/03/20 01/04/20 01/05/20 23:59 23:59 23:59 Intake Total 225 / 225 860 / 860 50 / 50 Output Total 2950 / 2950 400 / 400 Balance 225 / 225 -2090 / -2090 -350 / -350 General: Alert, Oriented x3, Cooperative, No apparent distress, - - Appears older than stated age. HEENT: Atraumatic, PERRLA, EOMI, Normocephalic, - - Slight scleral injection Oral: Moist Mucosa, No Gingival or Mucosal Lesions/ Ulcerations Neck: Supple, No JVD, No Nodes, Trachea Midline Lungs: No rhonchi, No wheeze, Diminished - Bilateral bases, Rales - Left Cardiovascular: Normal S1, Normal S2, Irregular Rate, Murmur, No rub noted, No Gallop Abdomen: Bowel Sounds Present, Soft, Non Tender, Non-Distended Extremities: No cyanosis, Clubbing, Edema Skin: - - No change compared to previous Musculoskeletal: No Tenderness to Palpation of Joints or Extremities Lymphatic: No Cervical, Supraclavicular, or Inguinal Adenopathy Neurological: Cranial nerves II-XII grossly intact, Neuro grossly intact, Motor Exam 5/5 strength throughout Psych/Mental Status: Alert and oriented to time, place, person, mood and affect Laboratory Results 01/04/20 11:10: WBC Cancelled, Corrected WBC Cancelled, RBC Cancelled, Hgb Cancelled, Hct Cancelled, MCV Cancelled, MCH Cancelled, MCHC Cancelled, RDW Std Deviation Cancelled, RDW Coeff of Eleni Cancelled, Plt Count Cancelled, MPV Cancelled, Immature Gran % (Auto) Cancelled, Neut % (Auto) Cancelled, Lymph % (Auto) Cancelled, [place] % (Auto) Cancelled, Eos % (Auto) Cancelled, Baso % (Auto) Cancelled, Absolute Neuts (auto) Cancelled, Absolute Lymphs (auto) Cancelled, Total Counted Cancelled, Neutrophils % (Manual) Cancelled, Band Neutrophils % Cancelled, Lymphocytes % (Manual) Cancelled, Monocytes % (Manual) Cancelled, Eosinophils % (Manual) Cancelled, Basophils % (Manual) Cancelled, Metamyelocytes % Cancelled, Myelocytes % Cancelled, Promyelocytes % Cancelled, Blast Cells % Cancelled, Plasma Cell % (Manual) Cancelled, Other Cells % Cancelled, Nucleated RBC % Cancelled, Nucleated RBCs/100 WBC Cancelled, Differential Comment Cancelled, Diff Path Review Cancelled, Hypersegmented Neuts Cancelled, Atypical Lymphocytes Cancelled, Reactive Lymphocytes Cancelled, Smudge Cells Cancelled, Toxic Granulation Cancelled, Toxic Vacuolation Cancelled, Dohle Bodies Cancelled, Jer Rods Cancelled, Platelet Estimate Cancelled, Plt Morphology Comment Cancelled, RBC Morphology Cancelled, Polychromasia Cancelled, Hypochromasia Cancelled, Poikilocytosis Cancelled, Basophilic Stippling Cancelled, Anisocytosis Cancelled, Microcytosis Cancelled, Macrocytosis Cancelled, Spherocytes Cancelled, Sickle Cells Cancelled, Target Cells Cancelled, Tear Drop Cells Cancelled, Ovalocytes Cancelled, Stomatocytes Cancelled, [place] Bodies Cancelled, Edwards Cells Cancelled, Bite Cells Cancelled, Crenated Cell Cancelled, Acanthocytes (Spur) Cancelled, Rouleaux Cancelled, Schistocytes Cancelled 01/04/20 17:20: Magnesium 2.0 01/04/20 17:20: Sodium 129 L, Potassium 5.8 H, Chloride 94 L, Carbon Dioxide 22.0, Anion Gap 13, BUN 101 H*, Creatinine 9.53 H*, Estim Creat Clear Calc 6.69, Est GFR (MDRD) Af Amer 7 L, Est GFR (MDRD) Non-Af 6 L, BUN/Creatinine Ratio 10.6, Glucose 120 H, Calcium 8.6 01/04/20 17:20: WBC 11.1 H, RBC 2.61 L, Hgb 7.9 L, Hct 24.7 L, MCV 94.6 H, MCH 30.3, MCHC 32.0, RDW Std Deviation 55.6 H, RDW Coeff of Eleni 16.3 H, Plt Count 240, MPV 9.4, Immature Gran % (Auto) 0.600, Neut % (Auto) 84.5 H, Lymph % (Auto) 5.4 L, [place] % (Auto) 7.9, Eos % (Auto) 1.3, Baso % (Auto) 0.3, Absolute Neuts (auto) 9.4 H, Absolute Lymphs (auto) 0.60 L, Nucleated RBC % 0, Differential Comment , Platelet Estimate ADEQUATE, RBC Morphology N CHROM, Anisocytosis 1+ 01/05/20 06:28: WBC 7.7, RBC 2.73 L, Hgb 8.3 L, Hct 26.4 L, MCV 96.7 H, MCH 30.4, MCHC 31.4 L, RDW Std Deviation 58.4 H, RDW Coeff of Eleni 16.3 H, Plt Count 233, MPV 9.4, Immature Gran % (Auto) 0.500, Neut % (Auto) 75.0 H, Lymph % (Auto) 9.4 L, [place] % (Auto) 11.7 H, Eos % (Auto) 3.0, Baso % (Auto) 0.4, Absolute Neuts (auto) 5.8, Absolute Lymphs (auto) 0.72 L, Nucleated RBC % 0 01/05/20 06:28: Sodium 135 L, Potassium 3.5, Chloride 98, Carbon Dioxide 26.0, Anion Gap 11, BUN 43 H, Creatinine 4.82 H, Estim Creat Clear Calc 13.24, Est GFR (MDRD) Af Amer 16 L, Est GFR (MDRD) Non-Af 13 L, BUN/Creatinine Ratio 8.9 L, Glucose 119 H, Calcium 8.1 L Current Medications Acetaminophen (Tylenol) 650 mg PO Q6H PRN PRN PRN Reason: Pain Score 1-10/Temp > 100.7 F Last Admin: 01/05/20 01:54 Dose: 650 mg Documented by: Albuterol/Ipratropium (Duoneb) 3 ml INHALATION Q4H PRN PRN PRN Reason: SOB &/OR WHEEZING Last Admin: 01/04/20 20:03 Dose: 3 ml Documented by: Atorvastatin Calcium (Lipitor) 80 mg PO QHS [facility] Last Admin: 01/04/20 22:16 Dose: 80 mg Documented by: Budesonide (Pulmicort Aerosol) 0.5 mg INHALATION TID [facility] Last Admin: 01/05/20 06:59 Dose: 0.5 mg Documented by: Glucagon () 1 mg IM .X1 PRN PRN Reason: Hypoglycemia Hydroxyzine HCl (Atarax Tablet) 10 mg PO TID PRN PRN PRN Reason: ANXIETY Last Admin: 01/05/20 09:21 Dose: 10 mg Documented by: Dextrose (Dextrose 10%-Water) 250 mls @ 999 mls/hr IV .Q16M PRN; Protocol PRN Reason: HYPOGLYCEMIA Metoprolol Succinate (Toprol Xl (Beta Kadi)) 50 mg PO BID [facility] Last Admin: 01/05/20 09:21 Dose: 50 mg Documented by: Pantoprazole Sodium (Protonix) 40 mg PO BID [facility] Last Admin: 01/05/20 09:21 Dose: 40 mg Documented by: Sodium Chloride () 10 - 40 ml IV UD PRN PRN Reason: SALINE FLUSH Last Admin: 01/03/20 22:02 Dose: 10 ml Documented by: Tamsulosin HCl (Flomax) 0.8 mg PO DAILY [facility] Last Admin: 01/05/20 09:20 Dose: 0.8 mg Documented by: Clinical Impression(s) from Imaging Studies Chest CT 01/04/20 13:18 IMPRESSION: Weren''t again, bilateral moderate pleural effusions with atelectasis at the lung bases. Stable diffuse bilateral groundglass appearance with the evidence of the cystic changes in the upper lobes suggestive of a emphysematous change. Stable slightly enlarged mediastinal lymph nodes. Electronically Signed: Deven Hensley, at 14:30 EDT , Service support , Medical Necessity - Tobacco Use Smoking Status: Former smoker Assessment/Plan All Active Problems (Last Reviewed 01/03/20 @ 14:[address] Chris Stark, DO) Pneumonia (Acute) s/p fistulogram (Resolved ~09/28/18) history of surgically created arteriovenous fistula (Resolved) Stented coronary artery (Resolved) S/P CABG x 3 (Resolved 01/26/11) Status post peripheral artery angioplasty with insertion of stent (Resolved ~2010) RECOMMENDATIONS: 1. Continue volume optimization with hemodialysis per nephrology recommendations. 2. Transfuse to maintain a hemoglobin at or above 7 g/dL. 3. Continue BiPAP therapy with naps and nightly. 4. Consider outpatient evaluation for Pleurx catheter. Reasonable to address effusions as an outpatient 5. Wean supplemental oxygen to maintain saturations at or above 90%. Encourage incentive spirometer use and mobilize patient as tolerated. IMPRESSIONS: 1. Acute on chronic hypoxemic respiratory failure/known history of severe obstructive lung disease Patient CT scan shows consistent pleural effusions with groundglass opacities consistent with volume overload. Patient has had transudate laboratory work-up in the past, but these are reaccumulating relatively rapidly. Patient does have some reported irritation at his dialysis site, but does not have a significant leukocytosis to suggest empyema or parapneumonic effusions at this time. If patient is able to tolerate off of BiPAP, outpatient evaluation for Pleurx catheter may be appropriate given rapid reaccumulation of right-sided pleural effusion. Reasonable to discharge and work this up as an outpatient through nephrology or PCP. Dr. Henderson does perform this procedure. 2. Acute on chronic anemia The patient does have a history of prior GI bleed. Continue PPI therapy as ordered. Monitor H&H and transfuse to maintain a hemoglobin at or above 7 g/dL. 3. End-stage renal disease Nephrology following to assist with dialysis management. 4. Coronary artery disease/atrial fibrillation/peripheral vascular disease Continue baseline medication regimen. 5. Obstructive sleep apnea Continue BiPAP therapy with naps and nightly. 6. CODE STATUS Full code following discussion with patient and family. Inpatient E&M: 65340 Subs Hosp L2
--- NOTE | 2020-01-05 11:08 | DCINST_ITS ---
- Discharge Diagnoses Current Active Problems: Current Active and Chronic Problems (Last Reviewed 01/03/20 @ 14:[address] Chris Stark, DO) Pneumonia (Acute) You will use the following diet at home:: Cardiac Your food should be the consistency of: Regular Your liquids should be the consistency of: Regular/Thin Discharge Activity: Return to Normal Activity Weight Bearing Status: Weight bearing as tolerated Call your doctor if you observe: Fever of 101 or Higher, Shortness of breath, Fainting spells, Swelling in the ankles Instructions: Pleural Effusion Allergies/Adverse Reactions: Allergies irbesartan [From Avapro] Allergy (Severe, Verified 01/03/20 10:55) Blisters zolpidem [From Ambien] Adverse Reaction (Severe, Verified 01/03/20 10:55) made me go crazy, memory loss amoxicillin Adverse Reaction (Intermediate, Verified 01/03/20 10:55) PASSES BLOOD IN STOOL TOLERATES ZOSYN PASSES BLOOD IN STOOL metronidazole [From Flagyl] Adverse Reaction (Verified 01/03/20 10:55) pt states he got palpitations and nose bleed. pt states he got palpitations and nose bleed. Medications to take at Discharge Budesonide Aerosol [Pulmicort Respules] 1 inh INHALATION TID 07/23/19 Ipratropium/Albuterol Sulfate [Iprat-Albut 0.5-3(2.5) mg/3 ml] 1 inh INHALATION Q4H PRN PRN 07/23/19 Omeprazole 40 mg PO BID 07/23/19 Rosuvastatin Calcium [Crestor] 40 mg PO QHS 07/23/19 Tamsulosin HCl [Flomax] 0.8 mg PO DAILY 07/23/19 Metoprolol Succinate [Toprol Xl] 50 mg PO BID 08/08/19 Primary Care Physician: Tania Berger NP-C [Primary Care Provider] - 3-5 Days Please follow up with your Primary Care Physician in: 1-2 weeks Test Results: Test results from this visit will be discussed in further detail at your follow- up appointment, if applicable. Please Follow Up With: Caleb Alaniz MD When: 1-2 weeks Please Follow Up With: Elie Caicedo MD When: 2-3 weeks Proposed Discharge Date: 01/05/20
--- NOTE | 2020-01-05 11:13 | PCM.DC.SUM ---
Discharge Date and Diagnosis - Problem List Patient Problems: Active and Suspected Problems (Last Reviewed 01/03/20 @ 14:[address] Chris Stark DO) Pneumonia (Acute) Date of Admission: 01/03/20 Date of Discharge: 01/05/20 - Primary Discharge Diagnosis Active and Suspected Problems (Last Reviewed 01/03/20 @ 14:[address] Chris Stark DO) fluid overload in ESRD recurrent pleural effusion - Secondary Discharge Diagnosis Chronic Problems (Last Reviewed 01/03/20 @ 14:[address] Chris Stark DO) Transudative pleural effusion (Chronic) Chronic atrial fibrillation (Chronic) Problem with dialysis access (Chronic) RAVEN (obstructive sleep apnea) (Chronic) AHI 426. ESRD (end stage renal disease) (Chronic) History of non-ST elevation myocardial infarction (NSTEMI) (Chronic 01/21/11) Atherosclerotic heart disease of [place] coronary artery without angina pectoris (Chronic) 2003, JASON to circumflex ; 10/10/2009 tsfer from [facility] to [facility], total of 5 bare metal stents to RCA; CABG X 3 vessels @ [facility] 01/31/2011 (critical left main and restenosis of RCA stents) Diastolic CHF (Chronic) HLD (hyperlipidemia) (Chronic) HTN (hypertension) (Chronic) PAD (peripheral artery disease) (Chronic) COPD (chronic obstructive pulmonary disease) (Chronic) Tobacco dependence (Chronic) Anemia (Chronic) BPH (benign prostatic hyperplasia) (Chronic) Hospital Course and Treatment Imaging Results: Diagnostic Data Chest X-Ray 01/03/20 11:26 IMPRESSION: Stable examination with evidence of bilateral pleural effusions and bibasilar atelectasis with findings suggestive of a CHF and possible bilateral infiltrates. Electronically Signed: Deven Hensley, at 11:48 EDT , Service support , Chest CT 01/04/20 13:18 IMPRESSION: Weren''t again, bilateral moderate pleural effusions with atelectasis at the lung bases. Stable diffuse bilateral groundglass appearance with the evidence of the cystic changes in the upper lobes suggestive of a emphysematous change. Stable slightly enlarged mediastinal lymph nodes. Electronically Signed: Deven Hensley, at 14:30 EDT , Service support , nephrology- Dr childers Pulmonology- Dr Caicedo Operations: None Procedures: Dialysis Summary of Care Provided: The patient is a 69 year old M with an extensive PMH as listed who was admitted via the ED with concerns of pus from his fistula.He had no associated fever, chills, or pain or reddening. In the ED, CXR was concerning for pneumonia, and received rocephin. He was admitted reviewed for discharge from his fistula. However, there was no clear discharge from fistula site and there was no tenderness and redness or any indication of cellulitis. Patient subsequently became short of breath and this was thought to be due to his missed dialysis. At his request, pulmonology was consulted and chest CT done confirmed bilateral pleural effusions. Patient does have recurrent pleural effusion for which he is required thoracentesis in the past. Pulmonology reviewed patient stated that he could follow-up on outpatient basis for consideration of Pleurx catheter placement. Shortness of breath resolved with dialysis on 01/04/2020. Patient became stable and was discharged home on 01/05/2020. He is follow-up with his primary care doctor, pulmonology and nephrology. Patient seen and examined prior to discharge. Shortness of breath had resolved completely and he felt well. 12 point review systems was otherwise negative. Labs and vitals reviewed. Home medication reviewed and reconciled. o/e: Vital Signs Height 5 ft 6 in Weight: 143 lb 4.807 oz Weight in Pounds 143.3 lbs Pulse Ox 96 Temperature 98.3 F Pulse Rate 80 Respiratory Rate 16 Blood Pressure 133/62 Blood Pressure Position Sitting [] General: Alert, Oriented x3, Cooperative, Lethargic HEENT: Atraumatic, PERRLA, EOMI, Normocephalic Oral: Dry Mucosa Neck: Supple, No JVD, Negative Carotid Bruits Lungs: Tachypneic, - - decreased breath sounds bibasally, no wheezes or crackles. on 3L of oxygen Cardiovascular: Regular rate, Regular Rhythm, Normal S1, Normal S2, No murmurs Abdomen: Bowel Sounds Present, Soft, Non Tender, Non-Distended, No Hepato-splenomegaly Extremities: No clubbing, No cyanosis, No edema, Capillary Refill Less than 3 Seconds Skin: No rashes Musculoskeletal: No Tenderness to Palpation of Joints or Extremities Lymphatic: No Cervical, Supraclavicular, or Inguinal Adenopathy Neurological: Cranial nerves II-XII grossly intact, Neuro grossly intact, Motor Exam 5/5 strength throughout Psych/Mental Status: Normal Affect, Appropriate, Alert and oriented to time, place, person, mood and affect Plan as above. Patient Problems: Active and Suspected Problems (Last Reviewed 01/03/20 @ 14:[address] Chris Stark, DO) Pneumonia (Acute) - Physical Exam Vitals/I&O's: Vital Signs Temp Pulse Resp BP Pulse Ox 97.6 F L 86 20 H 150/58 H 96 01/05/20 09:19 01/05/20 09:21 01/05/20 09:19 01/05/20 09:21 01/05/20 09:19 Oxygen Flow Rate (L/min) 3 Oxygen Delivery Method Nasal Cannula Weight: 143 lb 4.807 oz Body Mass Index (BMI) 22.6 Finger Stick Blood Glucose 200 Intake and Output for Last 24 Hours 01/03/20 01/04/20 01/05/20 23:59 23:59 23:59 Intake Total 225 / 225 860 / 860 50 / 50 Output Total 2950 / 2950 400 / 400 Balance 225 / 225 -2090 / -2090 -350 / -350 Laboratory Results 01/04/20 11:10: WBC Cancelled, Corrected WBC Cancelled, RBC Cancelled, Hgb Cancelled, Hct Cancelled, MCV Cancelled, MCH Cancelled, MCHC Cancelled, RDW Std Deviation Cancelled, RDW Coeff of Eleni Cancelled, Plt Count Cancelled, MPV Cancelled, Immature Gran % (Auto) Cancelled, Neut % (Auto) Cancelled, Lymph % (Auto) Cancelled, [place] % (Auto) Cancelled, Eos % (Auto) Cancelled, Baso % (Auto) Cancelled, Absolute Neuts (auto) Cancelled, Absolute Lymphs (auto) Cancelled, Total Counted Cancelled, Neutrophils % (Manual) Cancelled, Band Neutrophils % Cancelled, Lymphocytes % (Manual) Cancelled, Monocytes % (Manual) Cancelled, Eosinophils % (Manual) Cancelled, Basophils % (Manual) Cancelled, Metamyelocytes % Cancelled, Myelocytes % Cancelled, Promyelocytes % Cancelled, Blast Cells % Cancelled, Plasma Cell % (Manual) Cancelled, Other Cells % Cancelled, Nucleated RBC % Cancelled, Nucleated RBCs/100 WBC Cancelled, Differential Comment Cancelled, Diff Path Review Cancelled, Hypersegmented Neuts Cancelled, Atypical Lymphocytes Cancelled, Reactive Lymphocytes Cancelled, Smudge Cells Cancelled, Toxic Granulation Cancelled, Toxic Vacuolation Cancelled, Dohle Bodies Cancelled, Jer Rods Cancelled, Platelet Estimate Cancelled, Plt Morphology Comment Cancelled, RBC Morphology Cancelled, Polychromasia Cancelled, Hypochromasia Cancelled, Poikilocytosis Cancelled, Basophilic Stippling Cancelled, Anisocytosis Cancelled, Microcytosis Cancelled, Macrocytosis Cancelled, Spherocytes Cancelled, Sickle Cells Cancelled, Target Cells Cancelled, Tear Drop Cells Cancelled, Ovalocytes Cancelled, Stomatocytes Cancelled, [place] Bodies Cancelled, Zach Cells Cancelled, Bite Cells Cancelled, Crenated Cell Cancelled, Acanthocytes (Spur) Cancelled, Rouleaux Cancelled, Schistocytes Cancelled 01/04/20 17:20: Magnesium 2.0 01/04/20 17:20: Sodium 129 L, Potassium 5.8 H, Chloride 94 L, Carbon Dioxide 22.0, Anion Gap 13, BUN 101 H*, Creatinine 9.53 H*, Estim Creat Clear Calc 6.69, Est GFR (MDRD) Af Amer 7 L, Est GFR (MDRD) Non-Af 6 L, BUN/Creatinine Ratio 10.6, Glucose 120 H, Calcium 8.6 01/04/20 17:20: WBC 11.1 H, RBC 2.61 L, Hgb 7.9 L, Hct 24.7 L, MCV 94.6 H, MCH 30.3, MCHC 32.0, RDW Std Deviation 55.6 H, RDW Coeff of Eleni 16.3 H, Plt Count 240, MPV 9.4, Immature Gran % (Auto) 0.600, Neut % (Auto) 84.5 H, Lymph % (Auto) 5.4 L, [place] % (Auto) 7.9, Eos % (Auto) 1.3, Baso % (Auto) 0.3, Absolute Neuts (auto) 9.4 H, Absolute Lymphs (auto) 0.60 L, Nucleated RBC % 0, Differential Comment , Platelet Estimate ADEQUATE, RBC Morphology N CHROM, Anisocytosis 1+ 01/05/20 06:28: WBC 7.7, RBC 2.73 L, Hgb 8.3 L, Hct 26.4 L, MCV 96.7 H, MCH 30.4, MCHC 31.4 L, RDW Std Deviation 58.4 H, RDW Coeff of Eleni 16.3 H, Plt Count 233, MPV 9.4, Immature Gran % (Auto) 0.500, Neut % (Auto) 75.0 H, Lymph % (Auto) 9.4 L, Eddy % (Auto) 11.7 H, Eos % (Auto) 3.0, Baso % (Auto) 0.4, Absolute Neuts (auto) 5.8, Absolute Lymphs (auto) 0.72 L, Nucleated RBC % 0 01/05/20 06:28: Sodium 135 L, Potassium 3.5, Chloride 98, Carbon Dioxide 26.0, Anion Gap 11, BUN 43 H, Creatinine 4.82 H, Estim Creat Clear Calc 13.24, Est GFR (MDRD) Af Amer 16 L, Est GFR (MDRD) Non-Af 13 L, BUN/Creatinine Ratio 8.9 L, Glucose 119 H, Calcium 8.1 L Current Medications Acetaminophen (Tylenol) 650 mg PO Q6H PRN PRN PRN Reason: Pain Score 1-10/Temp > 100.7 F Last Admin: 01/05/20 10:00 Dose: 650 mg Documented by: Albuterol/Ipratropium (Duoneb) 3 ml INHALATION Q4H PRN PRN PRN Reason: SOB &/OR WHEEZING Last Admin: 01/04/20 20:03 Dose: 3 ml Documented by: Atorvastatin Calcium (Lipitor) 80 mg PO QHS [facility] Last Admin: 01/04/20 22:16 Dose: 80 mg Documented by: Budesonide (Pulmicort Aerosol) 0.5 mg INHALATION TID [facility] Last Admin: 01/05/20 06:59 Dose: 0.5 mg Documented by: Diphenhydramine HCl (Benadryl) 25 mg PO BID PRN PRN PRN Reason: RASH/TOPICAL IRRITATION Glucagon () 1 mg IM .X1 PRN PRN Reason: Hypoglycemia Hydroxyzine HCl (Atarax Tablet) 10 mg PO TID PRN PRN PRN Reason: ANXIETY Last Admin: 01/05/20 09:21 Dose: 10 mg Documented by: Dextrose (Dextrose 10%-Water) 250 mls @ 999 mls/hr IV .Q16M PRN; Protocol PRN Reason: HYPOGLYCEMIA Metoprolol Succinate (Toprol Xl (Beta Kadi)) 50 mg PO BID [facility] Last Admin: 01/05/20 09:21 Dose: 50 mg Documented by: Pantoprazole Sodium (Protonix) 40 mg PO BID [facility] Last Admin: 01/05/20 09:21 Dose: 40 mg Documented by: Sodium Chloride () 10 - 40 ml IV UD PRN PRN Reason: SALINE FLUSH Last Admin: 01/03/20 22:02 Dose: 10 ml Documented by: Tamsulosin HCl (Flomax) 0.8 mg PO DAILY [facility] Last Admin: 01/05/20 09:20 Dose: 0.8 mg Documented by: Discharge Diet: Low fat/ Low Cholesterol Discharge Activity: Return to Normal Activity Weight Bearing Status: Weight bearing as tolerated Call your doctor if you observe: Fever of 101 or Higher, Shortness of breath, Fainting spells, Swelling in the ankles Home Medications: Medications to take at Discharge Budesonide Aerosol [Pulmicort Respules] 1 inh INHALATION TID 07/23/19 Ipratropium/Albuterol Sulfate [Iprat-Albut 0.5-3(2.5) mg/3 ml] 1 inh INHALATION Q4H PRN PRN 07/23/19 Omeprazole 40 mg PO BID 07/23/19 Rosuvastatin Calcium [Crestor] 40 mg PO QHS 07/23/19 Tamsulosin HCl [Flomax] 0.8 mg PO DAILY 07/23/19 Metoprolol Succinate [Toprol Xl] 50 mg PO BID 08/08/19 Primary Care Physician: Tania Berger NP-C [Primary Care Provider] - 3-5 Days Please follow up with your Primary Care Physician in: 1-2 weeks Please Follow Up With: Caleb Childers MD When: 1-2 weeks Please Follow Up With: Elie Caicedo MD When: 2-3 weeks Patient Instructions: Pleural Effusion Disposition: Home Minutes spent on discharge:: 40 Patient Condition:: Stable Medical Necessity - Tobacco Use Smoking Status: Former smoker Meaningful Use Info Meaningful Use Diagnoses (Choose all that apply): None applicable Inpatient E&M: 45295 [facility] Hosp
--- NOTE | 2020-01-08 14:58 | CASEMGMT ---
RN JOHANNA Discharge F/U Phone Call LACE: 12 Strata: 3 Discharge date: 01/05/2020 Call date: 01/08/2020 Call time:[id number] Duration: 3 minutes Admission dx: Dialysis, redness over fistula Pt's answered phone and states pt has been 'doing good' since discharge. states no questions regarding discharge instructions/medications at this time. states HD at home has been going 'good.' voices no further questions/concerns/needs at this time and thanks this RN JOHANNA at this time. [place] RAYMOND SPENCER
== END 2020-01-05 14:34 | disposition home or self-care (01) | DRG 189 ==
LOC: ED 13:01 → MS3 14:40 → PCU 01-04 15:52
PROVIDERS: Hospitalist; Emergency Provider Emergency Medicine; PCP Nurse Practitioner Family; Visit Provider Student in an Organized Health Care Education/Training Program
DX: J96.21 Acute and chronic respiratory failure with hypoxia (principal); N18.6 End stage renal disease; I13.2 Hypertensive heart and chronic kidney disease with heart failure and with stage 5 chronic kidney disease, or end stage renal disease; I48.20 Chronic atrial fibrillation, unspecified; I50.30 Unspecified diastolic (congestive) heart failure; E87.70 Fluid overload, unspecified; Z99.2 Dependence on renal dialysis; I25.10 Atherosclerotic heart disease of native coronary artery without angina pectoris; D64.9 Anemia, unspecified; N40.0 Benign prostatic hyperplasia without lower urinary tract symptoms; E78.5 Hyperlipidemia, unspecified; G47.33 Obstructive sleep apnea (adult) (pediatric); I73.9 Peripheral vascular disease, unspecified; J44.9 Chronic obstructive pulmonary disease, unspecified; Z95.5 Presence of coronary angioplasty implant and graft; Z87.891 Personal history of nicotine dependence; Z95.1 Presence of aortocoronary bypass graft
CPT/HCPCS: 36415; 71045; 71250; 80048; 80053; 83605; 83735; 85025; 87040; 90937; 94002; 94003; 94640; 97162; 97165; 99251; 99284; J7050; A4216; G0257; G0463

== ENCOUNTER 2020-02-06 09:02 | Observation (INO) | payer MEDICARE, SELFPAY ==
[2020-01-03 15:06] VITALS: BMI 22.6
[2020-02-06] VITALS (16 sets, daily range): BP systolic 121–143; BP diastolic 42–72; PULSE 68–100; RESP 16–20; TEMP 36.6–37.3; O2SAT 92–100; BMI 22.0; BMI 23.2
--- NOTE | 2020-02-06 09:24 | CT_ITS ---
STUDY: CT ABDOMEN AND PELVIS WITHOUT CONTRAST REASON FOR EXAM: Male, 69 years old. ABDOMEN PAIN, COLOSTOMY NOT WORKING. H/O GI BLEED, MESENTERIC ISCHEMIA WITH BOWEL RESECTION AND COLOSTOMY RADIATION DOSAGE (If Supplied By Facility): CTDIvol = ( 6.89 ) mGy, DLP = ( 325.35 ) mGycm TECHNIQUE: Transaxial images were obtained from the dome of the diaphragm to the symphysis pubis without oral contrast, and without intravenous contrast. Sagittal and coronal images were reconstructed. Individualized dose optimization techniques were used for this CT. COMPARISON: Comparison is made with prior examination dated December 06, 2018. FINDINGS: Moderate size right pleural effusion with underlying right basilar atelectasis and/or infiltration. Small left pleural effusion. Coronary artery calcification. Normal liver. Normal gallbladder and extrahepatic biliary system. Normal spleen. Normal pancreas. Normal bilateral adrenal glands. Normal right kidney. Normal left kidney. There is a small hiatal hernia. Ostomy is seen in the right lower quadrant. There are mildly distended small bowel loops. The patient is status post subtotal colectomy. The appendix is visualized and appears normal. There is extensive atherosclerotic calcification of the abdominal aorta and major visceral branches, without a demonstrated aneurysm. Normal inferior vena cava. Normal retroperitoneum. Normal urinary bladder. Thinning of the anterior abdominal wall with diastases. There are diffuse degenerative changes of the visualized lumbar spine. CT/Abdomen/Pelvis without Cont IMPRESSION: Status post subtotal colectomy. Ostomy is seen in the right lower quadrant. Mildly dilated fluid-filled small bowel loops. Extensive atherosclerotic calcification of the abdominal aorta and the major visceral branches. Moderate sized right pleural effusion with underlying infiltration and/or atelectasis. Small left pleural effusion. Electronically Signed: Deven Hensley, at 10:35 EDT , Service support ,
--- NOTE | 2020-02-06 09:26 | ED.DCSUM_ITS ---
History of Present Illness Chief Complaint: Abd Pain Narrative: Patient is a 69-year-old male who presents with abdominal pain. Patient has a history of atrial fibrillation. However he is no longer anticoagulated due to ongoing occult GI bleeding. He then has a history of mesenteric ischemia with bowel resection and colostomy. He began to develop severe mid lower abdominal pain yesterday. He has had no output from his ostomy when normally he needs to change his bag every few hours. No fevers. Patient does report nausea and vomiting. No cough congestion rhinorrhea. He otherwise denies recent illness. Past Medical History - Allergies and Home Meds Allergies/Adverse Reactions: Allergies irbesartan [From Avapro] Allergy (Severe, Verified 02/06/20 09:05) Blisters zolpidem [From Ambien] Adverse Reaction (Severe, Verified 02/06/20 09:05) made me go crazy, memory loss amoxicillin Adverse Reaction (Intermediate, Verified 02/06/20 09:05) PASSES BLOOD IN STOOL TOLERATES ZOSYN PASSES BLOOD IN STOOL metronidazole [From Flagyl] Adverse Reaction (Verified 02/06/20 09:05) pt states he got palpitations and nose bleed. pt states he got palpitations and nose bleed. Primary Care Physician: Tania Berger NP-C [Primary Care Provider] - Past Medical History: - - Coronary artery disease, CABG, atrial fibrillation, MA, stroke, peripheral arterial disease, bowel resection with colostomy, hypertension Surgical History: coronary bypass surgery, tonsillectomy, - - CABG x3, multiple PCI coronary arteries, right common iliac angioplasty and stenting, aVF, tonsillectomy, multiple endoscopies with intervention. Smoking Status: Former smoker - Family History Maternal Family History: Family History (Last Reviewed 01/03/20 @ 14:[address] Chris Stark DO) Father CAD (coronary artery disease) Hypertension Kidney disease CVA (cerebral vascular accident) Other Cancer Family History: Reports: Heart Disease Paternal Family History: Family History (Last Reviewed 01/03/20 @ 14:[address] Chris Stark DO) Father CAD (coronary artery disease) Hypertension Kidney disease CVA (cerebral vascular accident) Other Cancer Family History: Reports: Heart Disease, Hypertension, Renal Disease Review of Systems All systems negative except as indicated General: Denies: Fever Eyes: Denies: Visual changes - bilaterally ENT: Denies: Bilateral ear pain Cardiovascular: Denies: Chest pain Respiratory: Denies: Dyspnea, Cough Gastrointestinal: Reports: Abdominal pain, Nausea, Vomiting Musculoskeletal: Denies: Myalgias, Arthralgias Skin: Denies: Rash Neurological: Denies: Headache Physical Exam Vital Signs/Narrative: Vital Signs Temp Pulse Resp BP Pulse Ox 02/06/20 09:03 99 F 85 20 H 134/72 H 100 Diagnostic/Tx/Re-eval Impressions Abdomen/Pelvis CT 02/06/20 09:24 IMPRESSION: Status post subtotal colectomy. Ostomy is seen in the right lower quadrant. Mildly dilated fluid-filled small bowel loops. Extensive atherosclerotic calcification of the abdominal aorta and the major visceral branches. Moderate sized right pleural effusion with underlying infiltration and/or atelectasis. Small left pleural effusion. Electronically Signed: Deven Ayden, at 10:35 EDT , Service support , 02/06/20 09:24 Abdomen/Pelvis without Cont [CT] Stat 02/06/20 10:12 Abdomen Single View (Portable) [RAD] Stat Laboratory Results 02/06/20 02/06/20 02/06/20 09:30 09:30 09:30 WBC 13.8 H RBC 3.14 L Hgb 9.6 L Hct 30.7 L MCV 97.8 H MCH 30.6 MCHC 31.3 L RDW Std Deviation 62.0 H RDW Coeff of Eleni 17.3 H Plt Count 289 MPV 9.4 Immature Gran % (Auto) 1.000 H Neut % (Auto) 81.0 H Lymph % (Auto) 7.1 L Turner % (Auto) 6.1 Eos % (Auto) 4.4 Baso % (Auto) 0.4 Absolute Neuts (auto) 11.2 H Absolute Lymphs (auto) 0.98 Nucleated RBC % 0 Sodium 130 L Potassium 4.4 Chloride 90 L Carbon Dioxide 30.0 Anion Gap 10 BUN 36 H Creatinine 5.60 H Estim Creat Clear Calc 11.07 Est GFR (MDRD) Af Amer 13 L Est GFR (MDRD) Non-Af 11 L BUN/Creatinine Ratio 6.4 L Glucose 108 H Lactic Acid 3.5 H* Calcium 9.7 Total Bilirubin 0.60 AST 30 ALT 32 Alkaline Phosphatase 148 H Total Protein 8.5 H Albumin 3.1 L Globulin 5.4 H Albumin/Globulin Ratio 0.6 L Lipase 145 - Medical Decision Making Patient was symptomatically treated with IV morphine and Zofran. Laboratory studies and CT imaging obtained as above notable for mild leukocytosis and elevated lactic acid at 3.5. CT does show mildly distended small bowel loops. Given patient's clinical presentation of decreased output and vomiting is consistent with ileus versus small bowel obstruction. Given his vomiting and dilated stomach on review of imaging I do feel he would benefit from NG tube placement. He was given Ativan for anxiety regarding this procedure. He will be given an aerosolized lidocaine treatment and NG tube will be placed. I did speak to Dr. Demian Lua who is on-call for general surgery and familiar with this patient. Given the patient's extensive comorbidities he would not be a good surgical candidate so general surgery recommends medical management at this time. Patient will be admitted to the hospitalist with a surgical consultation. ED Disposition - Plan for ED Patient: Disposition: Acute Care Hospital [facility] Diagnosis: SBO (small bowel obstruction) Referrals: Tania Berger NP-C [Primary Care Provider] -
[2020-02-06] MEDS: Morphine 4 MG/ML Syringe IV (09:40)
[2020-02-06] MEDS: Ondansetron 4 MG/2 ML Vial IV (09:40)
[2020-02-06 09:48] LABS: Absolute Lymphocyte Count 0.98 X10^3/uL (0.83-4.51); Absolute Neutrophil Count 11.2 X10^3/uL (2.0-7.7); Basophil# 0.06 X10^3/uL; Basophil% 0.4 % (0-1); Eosinophil# 0.61 X10^3/uL; Eosinophils% 4.4 % (0-5); Hematocrit 30.7 % (40-54); Hemoglobin 9.6 g/dL (13.0-16.5); Lymphocyte # 0.98 X10^3/ul (4.0); Lymphocyte % 7.1 % (19-41); Mean Corp Hgb Conc 31.3 g/dL (32-36); Mean Corpuscular Hgb 30.6 pg (27.0-32.0); Mean Corpuscular Volume 97.8 fL (80-94); Mean Platelet Vol. 9.4 fl (6.2-12.0); Monocyte# 0.85 X10^3/uL; Monocyte% 6.1 % (0-10); NRBC Flagged by Analyzer 0 % (0-5); Platelet Count 289 K/mm3 (150-450); RBC Distribution Width CV 17.3 % (11.6-14.6); Red Blood Count 3.14 M/mm3 (4.6-6.2); White Blood Count 13.8 K/mm3 (4.4-11.0)
[2020-02-06 10:03] LABS: ALB/GLOB Ratio 0.6 RATIO (0.9-2.4); AST(SGOT) 30 U/L (15-37); Alanine Aminotransfer ALT/SGPT 32 U/L (16-61); Albumin, Serum 3.1 g/dL (3.2-5.0); Alkaline Phosphatase 148 U/L (45-117); Anion Gap 10 (5-15); BUN 36 mg/dL (7-18); BUN/Creat Ratio 6.4 RATIO (10-20); Calcium,Total 9.7 mg/dL (8.5-10.1); Chloride 90 mmol/L (98-107); EST Glomerular Filtration Rate 11 mL/min (>60); Est Glom Filt Rate - Afr Amer 13 mL/min (>60); Estimated Creatinine Clearance 11.07 ml/min; Globulin 5.4 g/dL (2.2-4.2); Glucose 108 mg/dL (74-106); Lipase 145 U/L (73-393); Potassium 4.4 mmol/L (3.5-5.1); Protein, Total 8.5 g/dL (6.4-8.2); Sodium Level 130 mmol/L (136-145)
[2020-02-06 10:08] LABS: Lactic Acid 3.5 mmol/L (0.4-1.9)
--- NOTE | 2020-02-06 10:12 | RAD_ITS ---
STUDY: X-RAY - ABDOMEN/PELVIS REASON FOR EXAM: Male, 69 years old. NG PLACEMENT TECHNIQUE: Single AP view of the abdomen / pelvis. COMPARISON: None. FINDINGS: Bilateral pleural effusions with bibasilar atelectasis worse on the right side. The tip of the nasogastric tube is in the body of the stomach. RAD/Abdomen Single View (Portable) IMPRESSION: The tip of the nasogastric tube is in the body of the stomach. Electronically Signed: Deven Hensley, at 13:03 EDT , Service support ,
[2020-02-06] MEDS: LORazepam 2 MG/ML Syringe 0.5 MG IV ×2 (10:29→12:03)
[2020-02-06] MEDS: Oxymetazoline 0.05% 1 SPRAY SPRAY.BTL 2 SPRAY NASAL (10:31)
--- NOTE | 2020-02-06 10:58 | HP.PCM_ITS ---
Problem List (1) SBO (small bowel obstruction) Status: Acute (2) Chronic atrial fibrillation Status: Chronic (3) RAVEN (obstructive sleep apnea) Status: Chronic Comment: AHI 426. (4) ESRD (end stage renal disease) Status: Chronic (5) Stented coronary artery Status: Resolved Comment: 2003, JASON to circumflex ; 10/13/2009 tsfer from [facility] to [facility], total of 5 bare metal stents to RCA per Dr. Barrientos @ [facility]: 3.5 X 18 Informatics Spec, followed distally by 3.0 X12 Informatics Spec to distal RCA;3.5 X 15 Informatics Spec, followed proximally by 4.0 X 18 Informatics Spec to Mid RCA; 4.0 X 18 Informatics Spec to Proximal RCA (6) S/P CABG x 3 Status: Resolved Comment: [facility] per Dr. Osito Hernandez: NICHOLAS to LAD, reverse SVG to OMbranch of CX, reverse SVG to PDA of RCA. PDA endarterectomy. (7) Status post peripheral artery angioplasty with insertion of stent Status: Resolved Comment: Right common iliac, [facility] (8) Atherosclerotic heart disease of [place] coronary artery without angina pectoris Status: Chronic Comment: 2003, JASON to circumflex ; 10/10/2009 tsfer from [facility] to [facility], total of 5 bare metal stents to RCA; CABG X 3 vessels @ [facility] 01/31/2011 (critical left main and restenosis of RCA stents) (9) Diastolic CHF Status: Chronic Qualifiers: Heart failure chronicity: chronic Qualified Code(s): I50.32 - Chronic diastolic (congestive) heart failure (10) HLD (hyperlipidemia) Status: Chronic Qualifiers: Hyperlipidemia type: unspecified Qualified Code(s): E78.5 - Hyperlipidemia, unspecified (11) HTN (hypertension) Status: Chronic Qualifiers: Hypertension type: essential hypertension Qualified Code(s): I10 - Essential (primary) hypertension (12) PAD (peripheral artery disease) Status: Chronic (13) COPD (chronic obstructive pulmonary disease) Status: Chronic Qualifiers: COPD type: unspecified COPD Qualified Code(s): J44.9 - Chronic obstructive pulmonary disease, unspecified (14) Tobacco dependence Status: Chronic (15) Anemia Status: Chronic Qualifiers: Anemia type: unspecified type Qualified Code(s): D64.9 - Anemia, unspecified (16) BPH (benign prostatic hyperplasia) Status: Chronic Qualifiers: Lower urinary tract symptom presence: unspecified whether lower urinary tract symptoms present Qualified Code(s): N40.0 - Benign prostatic hyperplasia without lower urinary tract symptoms History of Present Illness Date of Admission: 02/06/20 Chief Complaint: Abdominal pain, malfunctioning ostomy, sent per Surgeon. The patient is a 69 y/o M w/ PMHx: RAVEN on BIPAP, Chronic AF not anticoagulated secondary to GI bleeding history, CAD s/p CABG x 3 and PCI, Chronic COPD, ESRD on HD following w/ Dr. Alaniz, HTN, HLD, PAD s/p R common iliac angioplasty and PCI, Tobacco use, Diastolic CHF, Chronic anemia/AOCD, GERD w/ Hx GI bleed, Hx Mesenteric Ischemia s/p colectomy who presents to the [facility] ED on 02/06/20 with history of progressively worsening BL LQ severe, 10/10 abdominal pain with distention, nausea with emesis, hyperactive bowel sounds with no stool ostomy output. He has had no recent fever, chills associated. Work-up in the ED included T 99, heart rate 85, BP 134/72, respiratory rate 20, on a percent on 3 L nasal cannula, CBC with WC 13.8, hemoglobin 9.6, platelet 289 with left shift with mild lymphopenia with absolute lymphocyte normal, CMP with sodium 130, chloride 90, BUN/creatinine 36/5.60, glucose 108, lactic acid 3.5, lipase 145 otherwise hepatic profile not market appearing, CT abdomen and pelvis with evidence status post subtotal colectomy, ostomy right lower quadrant, mildly dilated fluid-filled small bowel loops, extensive atherosclerotic calcification of the abdominal aorta and the major visceral branches, moderate sized right pleural effusion with underlying infiltration and or atelectasis, small left pleural effusion. In the ED patient administered Afrin, Zofran, morphine, Ativan and inhaled lidocaine with NGT placement given ongoing intractable nausea, emesis and abdominal distention. Past Medical History Past Medical History (Chronic Problems): Chronic Problems (Last Reviewed 01/03/20 @ 14:[address] Chris Stark, DO) Transudative pleural effusion (Chronic) Chronic atrial fibrillation (Chronic) Problem with dialysis access (Chronic) RAVEN (obstructive sleep apnea) (Chronic) AHI 426. ESRD (end stage renal disease) (Chronic) History of non-ST elevation myocardial infarction (NSTEMI) (Chronic 01/21/11) Atherosclerotic heart disease of [place] coronary artery without angina pectoris (Chronic) 2004, JASON to circumflex ; 10/10/2009 tsfer from [facility] to [facility], total of 5 bare metal stents to RCA; CABG X 3 vessels @ [facility] 01/31/2011 (critical left main and restenosis of RCA stents) Diastolic CHF (Chronic) HLD (hyperlipidemia) (Chronic) HTN (hypertension) (Chronic) PAD (peripheral artery disease) (Chronic) COPD (chronic obstructive pulmonary disease) (Chronic) Tobacco dependence (Chronic) Anemia (Chronic) BPH (benign prostatic hyperplasia) (Chronic) Medical History: Medical History (Last Reviewed 01/03/20 @ 14:[address] Chris Stark DO) ESRD (end stage renal disease) (Chronic) N18.6 History of non-ST elevation myocardial infarction (NSTEMI) (Chronic) Onset Date: 01/21/11 I25.2 Atherosclerotic heart disease of [place] coronary artery without angina pectoris (Chronic) I25.10 2003, JASON to circumflex ; 10/10/2009 tsfer from [facility] to [facility], total of 5 bare metal stents to RCA; CABG X 3 vessels @ [facility] 01/31/2011 (critical left main and restenosis of RCA stents) Diastolic CHF (Chronic) I50.30 HLD (hyperlipidemia) (Chronic) E78.5 HTN (hypertension) (Chronic) I10 PAD (peripheral artery disease) (Chronic) I73.9 COPD (chronic obstructive pulmonary disease) (Chronic) J44.9 Tobacco dependence (Chronic) F17.200 Anemia (Chronic) D64.9 BPH (benign prostatic hyperplasia) (Chronic) N40.0 Allergies irbesartan [From Avapro] Allergy (Severe, Verified 02/06/20 09:05) Blisters zolpidem [From Ambien] Adverse Reaction (Severe, Verified 02/06/20 09:05) made me go crazy, memory loss amoxicillin Adverse Reaction (Intermediate, Verified 02/06/20 09:05) PASSES BLOOD IN STOOL TOLERATES ZOSYN PASSES BLOOD IN STOOL metronidazole [From Flagyl] Adverse Reaction (Verified 02/06/20 09:05) pt states he got palpitations and nose bleed. pt states he got palpitations and nose bleed. Home Medications: Ambulatory Orders Medication Instructions Recorded Budesonide Aerosol [Pulmicort 1 inh INHALATION TID 07/23/19 Respules] Ipratropium/Albuterol Sulfate 1 inh INHALATION Q4H PRN PRN 07/23/19 [Iprat-Albut 0.5-3(2.5) mg/3 ml] Omeprazole 40 mg PO BID 07/23/19 Rosuvastatin Calcium [Crestor] 40 mg PO QHS 07/23/19 Tamsulosin HCl [Flomax] 0.8 mg PO DAILY 07/23/19 Metoprolol Succinate [Toprol Xl] 50 mg PO BID 08/08/19 Surgical History: Surgical History (Last Reviewed 01/03/20 @ 14:[address] Chris Stark DO) s/p fistulogram (Resolved) Onset Date: ~09/28/18 history of surgically created arteriovenous fistula (Resolved) Stented coronary artery (Resolved) Z95.5 2003, JASON to circumflex ; 10/13/2009 tsfer from [facility] to [facility], total of 5 bare metal stents to RCA per Dr. Barrientos @ [facility]: 3.5 X 18 Informatics Spec, followed distally by 3.0 X12 Informatics Spec to distal RCA;3.5 X 15 Informatics Spec, followed proximally by 4.0 X 18 Informatics Spec to Mid RCA; 4.0 X 18 Informatics Spec to Proximal RCA S/P CABG x 3 (Resolved) Onset Date: 01/26/[address] [facility] per Dr. Osito Hernandez: NICHOLAS to LAD, reverse SVG to OMbranch of CX, reverse SVG to PDA of RCA. PDA endarterectomy. Status post peripheral artery angioplasty with insertion of stent (Resolved) Onset Date: ~2010 Z95.820 Right common iliac, [facility] Surgical History: coronary bypass surgery, tonsillectomy, - - CABG x3, multiple PCI coronary arteries, right common iliac angioplasty and stenting, aVF, tonsillectomy, multiple endoscopies with intervention. Psychiatric History: Anxiety Lives: Spouse/ Significant Other Smoking Status: Former smoker Tobacco Use: Non-smoker Alcohol: None Drugs: None - *Family History Maternal Family History: Family History (Last Reviewed 01/03/20 @ 14:[address] Chris Stark DO) Father CAD (coronary artery disease) Hypertension Kidney disease CVA (cerebral vascular accident) Other Cancer History Items: Heart Disease Paternal Family History: Family History (Last Reviewed 01/03/20 @ 14:[address] Chris Stark DO) Father CAD (coronary artery disease) Hypertension Kidney disease CVA (cerebral vascular accident) Other Cancer History Items: Heart Disease, Hypertension, Renal Disease Review of Systems Constitutional: Reports: Anorexia, Malaise, Weakness, Fatigue. Denies: Chills, Fever, Weight Change HEENT: Denies: Head Aches, Sinus Congestion, Sinus Drainage Cardiovascular: Denies: Chest Pain, Palpitations Respiratory: Denies: Cough, Shortness of breath at rest, Sputum production Gastrointestinal: Reports: Abdominal Pain, Nausea, Vomiting, - - Lack of ostomy stool output. Genitourinary: Denies: Dysuria Musculoskeletal: Reports: Back Pain, Joint Pain. Denies: Joint Tenderness Skin: Denies: Rash, Wounds Neurological: Denies: Numbness, Tingling, Focal weakness Psychiatric: Denies: Anxiety, Depression, Homicidal Ideations, Suicidal Ideations Hematologic/ Lymphatic: Reports: Anemia, Easy Bruising, Easy Bleeding VTE Information - Inpt Only VTE Present on Admission: No VTE Mechan Device Prophylaxis: SCD's VTE Pharm Prophylaxis ordered?: Yes Patient Problems: Active and Suspected Problems (Last Reviewed 01/03/20 @ 14:[address] Chris Stark DO) SBO (small bowel obstruction) (Acute) Subjective: Seated upright in the medical surgical bed, improved from initial ED presentation status post NG tube placement with less abdominal distention and pain but still ongoing. Objective: Physical Examination: General: awake, alert, oriented x 3 and cooperative, seated upright in the surgical bed, improved from additional ED presentation with NG tube in place with thick output present, abdominal pain still present but improved. Skin: normal color, turgor, no icterus, cyanosis. HEENT: AT/NC, EOMI, PERRLA, NG tube present, dry MM, no carotid bruits or JVD noted. Lungs: Diminished breath sounds bilaterally, greater bilateral bases, no rales, ronchi or wheezing. Heart: Regular rate and rhythm; no gallop, rub audible. Abdomen: Mildly firm, generalized discomfort with palpation, worse in the right lower quadrant, high-pitched bowel sounds, ostomy in place with no output, difficult to assess HSM secondary to pain. Extremities: no cyanosis, clubbing, or edema, + RUE AVF thrill. Neurological: patient awake, alert, oriented x 3; cognitive function appears b aseline intact; pupils equally reactive to light and accomodation; cranial nerves II-XII grossly normal, moving all 4 extremities, no focal deficits, strength moderately to severely global decrease secondary to acute presentation and pain. Psychiatric: affect appears uncomfortable, fatigued, no acute evidence of depressive or anxiety feelings. - Physical Exam Vitals/I&O's: Vital Signs Temp Pulse Resp BP Pulse Ox 99 F 85 20 H 134/72 H 100 02/06/20 09:45 02/06/20 09:45 02/06/20 09:45 02/06/20 09:45 02/06/20 09:45 Oxygen Flow Rate (L/min) 3 Oxygen Delivery Method Nasal Cannula Weight: 136 lb 10.986 oz Body Mass Index (BMI) 22.0 Finger Stick Blood Glucose 200 Laboratory Results 02/06/20 09:30: WBC 13.8 H, RBC 3.14 L, Hgb 9.6 L, Hct 30.7 L, MCV 97.8 H, MCH 30.6, MCHC 31.3 L, RDW Std Deviation 62.0 H, RDW Coeff of Eleni 17.3 H, Plt Count 289, MPV 9.4, Immature Gran % (Auto) 1.000 H, Neut % (Auto) 81.0 H, Lymph % (Auto) 7.1 L, [place] % (Auto) 6.1, Eos % (Auto) 4.4, Baso % (Auto) 0.4, Absolute Neuts (auto) 11.2 H, Absolute Lymphs (auto) 0.98, Nucleated RBC % 0 02/06/20 09:30: Sodium 130 L, Potassium 4.4, Chloride 90 L, Carbon Dioxide 30.0, Anion Gap 10, BUN 36 H, Creatinine 5.60 H, Estim Creat Clear Calc 11.07, Est GFR (MDRD) Af Amer 13 L, Est GFR (MDRD) Non-Af 11 L, BUN/Creatinine Ratio 6.4 L, Glucose 108 H, Calcium 9.7, Total Bilirubin 0.60, AST 30, ALT 32, Alkaline Phosphatase 148 H, Total Protein 8.5 H, Albumin 3.1 L, Globulin 5.4 H, Albumin/Globulin Ratio 0.6 L, Lipase 145 02/06/20 09:30: Lactic Acid 3.5 H* Assessment/Plan All Active Problems (Last Reviewed 01/03/20 @ 14:[address] Chris Stark, DO) Pneumonia (Acute) SBO (small bowel obstruction) (Acute) s/p fistulogram (Resolved ~09/28/18) history of surgically created arteriovenous fistula (Resolved) Stented coronary artery (Resolved) S/P CABG x 3 (Resolved 01/26/11) Status post peripheral artery angioplasty with insertion of stent (Resolved ~2010) The patient is a 69 y/o M w/ PMHx: RAVEN on BIPAP, Chronic AF not anticoagulated secondary to GI bleeding history, CAD s/p CABG x 3 and PCI, Chronic COPD, ESRD on HD following w/ Dr. Alaniz, HTN, HLD, PAD s/p R common iliac angioplasty and PCI, Tobacco use, Diastolic CHF, Chronic anemia/AOCD, GERD w/ Hx GI bleed, Hx Mesenteric Ischemia s/p colectomy who presents to the [facility] ED on 02/06/20 with history of progressively worsening BL LQ severe, 10/10 abdominal pain with distention, nausea with emesis, hyperactive bowel sounds with no stool ostomy output. 1. Suspected Early SBO versus Ileus with Intractable Abdominal Pain, Nausea, Emesis, Abdominal Distention with Malfunctioning Ostomy: Work-up in the ED included T 99, heart rate 85, BP 134/72, respiratory rate 20, on a percent on 3 L nasal cannula, CBC with WC 13.8, hemoglobin 9.6, platelet 289 with left shift with mild lymphopenia with absolute lymphocyte normal, CMP with sodium 130, chloride 90, BUN/creatinine 36/5.60, glucose 108, lactic acid 3.5, lipase 145 otherwise hepatic profile not market appearing, CT abdomen and pelvis with evidence status post subtotal colectomy, ostomy right lower quadrant, mildly dilated fluid-filled small bowel loops, extensive atherosclerotic calcification of the abdominal aorta and the major visceral branches, moderate sized right pleural effusion with underlying infiltration and or atelectasis, small left pleural effusion. Given severity of presentation, distention, no ostomy output, nausea and emesis NGT placed in the ED given high suspicion of early SBO. General surgeon, Dr. Lua agreed and will remain on consultation. Will admit to [facility] tele, maintain on IVFs, continue NGT to suction, strict I&Os, IV pain/anti- emetics PRN, serial KUB as needed to montior bowel function, Protonix IV, maintain NPO on bowel rest. 2. CAD: Status post CABG x3 and PCI, not on ASA given GI bleed hx, holding metoprolol, transition to IV BB with hold parameters continue metoprolol, hold statin. 3. PAD/PVD: Patient status post right common iliac angioplasty and PCI, PVD history, not on ASA given GI bleed hx, holding metoprolol, transition to IV BB with hold parameters continue metoprolol, hold statin. 4. Diastolic CHF: Compensated appearance, not on ASA given GI bleed hx, continue HD per home regimen, holding metoprolol, transition to IV BB with hold parameters continue metoprolol, hold statin, very judicious IVF given #1 and this history. 5. Chronic atrial fibrillation: Holding oral BB, transition to IV with hold as needed. Not anticoagulated secondary to GI bleed history. 6. ESRD: Patient on dialysis following with Dr. Alaniz, consulted. 7. Former Tobacco Abuse: Encouraged continued cessation. 8. Chronic COPD: ATC duonebs, PRN albuterol, HOB, IS parameters. 9. BPH: Continue home Flomax regimen. 10. RAVEN: Hold q HS BiPAP given presentation as noted #1, NGT. 11. GERD: IV PPI. 12. Hyponatremia, Chronic: Admission Na 130, baseline prior noted 130-134, similar, continue to trend especially for worsening status given GI losses. 13. Chronic Anemia, Fe Deficiency Anemia, AOCD: Admission Hgb 9.6, 8-9 baseline, stable, continue to trend. 14. DVT prophylaxis: SCDs, heparin but cautiously given GI bleed history. 15. CODE status: Patient CL is his and living will is not in place. Discussed CODE status at length including difference between FULL code, DNR-CCA and DNR-CC status. Following discussions about the differences in these status, requested full code. Advanced Care Planning Face to Face Time: 16 minutes. Inpatient E&M: 58563 Init Hosp L3 Procedures: 14391 Advncd Care Plan 30 Min
[2020-02-06] MEDS: Lidocaine 4% 5 ML Ampul 2 ML INHALATION (11:17)
--- NOTE | 2020-02-06 11:27 | CON.PCM_ITS ---
Problem List (1) SBO (small bowel obstruction) Status: Acute Reason for Consult Date of Consultation: 02/06/20 History of Present Illness: The patient is a 69 year old M who I been asked to see in consultation by Dr. Guthrie today. The patient presents to the [facility] emergency room with abdominal pain and diminished function of his right lower quadrant ileostomy. The patient's history is notable that December 06, 2018 he was hosp italized with pneumatosis of the right colon and ascending colon. Per Dr. Andrew Henderson he underwent a right colectomy and proximal transverse colectomy from ischemic bowel. He had a end ileostomy created and a transverse colon mucous fistula. The patient had a remote shoeless postoperative course requiring ICU care. He did survive that treatment. Since that time he has had no less than 10 hospitalizations almost on a monthly basis at the [facility] for a variety of issues mostly revolving around acute respiratory failure or GI bleeding. The patient is on chronic hemodialysis for stage V disease. He is dialyzed via a left upper arm AV fistula. He is had difficulties with bilateral pleural effusions. He sees Dr. Elie Caicedo for pulmonology. His most recent hospitalization was January 02 through January 04 with general fluid overload and recurrent right pleural effusion. He has had a thoracentesis demonstrating a transudate. 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 He is had that managed at [facility] in [facility]. After his most recent GI bleed and anemia he was supposed to return to [facility] as an outpatient but he did not proceed with that. He has been a long-term chronic tobacco smoker. He states that he finally quit approximately 7 months ago. On today's presentation he notes generalized diffuse abdominal pain somewhat more in the left upper quadrant. There was a lack of stool and gas per the right lower quadrant ileostomy. He presented to the emergency room and was administered morphine and he is more comfortable. He claims that he has had some phlegm spit up but no bilious emesis. He has occasional drainage per his mucous fistula He states that he is not had similar pain or small bowel obstruction since the creation of the ileostomy. He does not recall having consumed any unusual food. It is very pertinent that this was done through an open procedure and he is got a long midline incision. He has evidence of an incisional hernia in the mid epigastrium which is nontender and reducible. He is wearing a hernia truss for a right inguinal hernia. He claims that the truss efficiently keeps the hernia reduced. He denies any pain in the right groin nor has he had any recent bulging. Laboratory demonstrates a white blood cell count of 13.8 with a hemoglobin 9.6 and hematocrit of 30.7 with a platelet count of 287,000. 81% neutrophils. Sodium is low at 130. Chloride is low at 90. BUN is 36 and creatinine 5.6. Lactic acid level was 3.5. Alkaline phosphatase 148. Total protein 8.5. Albumin 3.1. Globulin 5.4. Lipase 145. A CT scan of the abdomen and pelvis was obtained but not with any contrast. There was a moderate sized right pleural effusion with a small left pleural eff usion. Findings suggest atelectasis right lower lobe Small hiatal hernia. Ostomy right lower quadrant. Mildly distended small bowel loops. Evidence of previous right colectomy. The description states that the appendix appears normal however the patient has had a right colectomy. Calcification of the abdominal aorta. Thinning of the anterior abdominal wall with diastases. No comment made regard ing the incisional hernia. Past Medical History Past Medical History (Chronic Problems): Chronic Problems (Last Reviewed 01/03/20 @ 14:[address] Chris Stark DO) Transudative pleural effusion (Chronic) Chronic atrial fibrillation (Chronic) Problem with dialysis access (Chronic) RAVEN (obstructive sleep apnea) (Chronic) AHI 426. ESRD (end stage renal disease) (Chronic) History of non-ST elevation myocardial infarction (NSTEMI) (Chronic 01/21/11) Atherosclerotic heart disease of [place] coronary artery without angina pectoris (Chronic) 2003, JASON to circumflex ; 10/10/2009 tsfer from [facility] to [facility], total of 5 bare metal stents to RCA; CABG X 3 vessels @ [facility] 01/31/2011 (critical left main and restenosis of RCA stents) Diastolic CHF (Chronic) HLD (hyperlipidemia) (Chronic) HTN (hypertension) (Chronic) PAD (peripheral artery disease) (Chronic) COPD (chronic obstructive pulmonary disease) (Chronic) Tobacco dependence (Chronic) Anemia (Chronic) BPH (benign prostatic hyperplasia) (Chronic) Medical History: Medical History (Last Reviewed 01/03/20 @ 14:[address] Chris Jopperi, DO) ESRD (end stage renal disease) (Chronic) N18.6 History of non-ST elevation myocardial infarction (NSTEMI) (Chronic) Onset Date: 01/21/11 I25.2 Atherosclerotic heart disease of [place] coronary artery without angina pectoris (Chronic) I25.10 2003, JASON to circumflex ; 10/10/2009 tsfer from [facility] to [facility], total of 5 bare metal stents to RCA; CABG X 3 vessels @ [facility] 01/31/2011 (critical left main and restenosis of RCA stents) Diastolic CHF (Chronic) I50.30 HLD (hyperlipidemia) (Chronic) E78.5 HTN (hypertension) (Chronic) I10 PAD (peripheral artery disease) (Chronic) I73.9 COPD (chronic obstructive pulmonary disease) (Chronic) J44.9 Tobacco dependence (Chronic) F17.200 Anemia (Chronic) D64.9 BPH (benign prostatic hyperplasia) (Chronic) N40.0 Allergies irbesartan [From Avapro] Allergy (Severe, Verified 02/06/20 09:05) Blisters zolpidem [From Ambien] Adverse Reaction (Severe, Verified 02/06/20 09:05) made me go crazy, memory loss amoxicillin Adverse Reaction (Intermediate, Verified 02/06/20 09:05) PASSES BLOOD IN STOOL TOLERATES ZOSYN PASSES BLOOD IN STOOL metronidazole [From Flagyl] Adverse Reaction (Verified 02/06/20 09:05) pt states he got palpitations and nose bleed. pt states he got palpitations and nose bleed. Home Medications: Ambulatory Orders Medication Instructions Recorded Budesonide Aerosol [Pulmicort 1 inh INHALATION TID 07/23/19 Respules] Ipratropium/Albuterol Sulfate 1 inh INHALATION Q4H PRN PRN 07/23/19 [Iprat-Albut 0.5-3(2.5) mg/3 ml] Omeprazole 40 mg PO BID 07/23/19 Rosuvastatin Calcium [Crestor] 40 mg PO QHS 07/23/19 Tamsulosin HCl [Flomax] 0.8 mg PO DAILY 07/23/19 Metoprolol Succinate [Toprol Xl] 50 mg PO BID 08/08/19 Surgical History: Surgical History (Last Reviewed 03/19/20 @ 14:[address] Chris Stark DO) s/p fistulogram (Resolved) Onset Date: ~09/28/18 history of surgically created arteriovenous fistula (Resolved) Stented coronary artery (Resolved) Z95.5 2003, JASON to circumflex ; 10/13/2009 tsfer from [facility] to [facility], total of 5 bare metal stents to RCA per Dr. Barrientos @ [employer]: 3.5 X 18 [employer], followed distally by 3.0 X12 [employer] to distal RCA;3.5 X 15 [employer], followed proximally by 4.0 X 18 [employer] Of Individual [employer]iving to Mid RCA; 4.0 X 18 [employer] to Proximal RCA S/P CABG x 3 (Resolved) Onset Date: 01/26/[address] [facility] per Dr. Osito Hernandez: NICHOLAS to LAD, reverse SVG to OMbranch of CX, reverse SVG to PDA of RCA. PDA endarterectomy. Status post peripheral artery angioplasty with insertion of stent (Resolved) Onset Date: ~2010 Z95.820 Right common iliac, [facility] Surgical History: coronary bypass surgery, tonsillectomy, - - CABG x3, multiple PCI coronary arteries, right common iliac angioplasty and stenting, aVF, tonsillectomy, multiple endoscopies with intervention. Psychiatric History: Anxiety Lives: Spouse/ Significant Other Smoking Status: Former smoker Tobacco Use: Non-smoker Alcohol: None Drugs: None - *Family History Maternal Family History: Family History (Last Reviewed 01/03/20 @ 14:[address] Chris Stark DO) Father CAD (coronary artery disease) Hypertension Kidney disease CVA (cerebral vascular accident) Other Cancer History Items: Heart Disease Paternal Family History: Family History (Last Reviewed 01/03/20 @ 14:[address] Chris Stark DO) Father CAD (coronary artery disease) Hypertension Kidney disease CVA (cerebral vascular accident) Other Cancer History Items: Heart Disease, Hypertension, Renal Disease Review of Systems Constitutional: Denies: Anorexia Eyes: Denies: Blurred vision HEENT: Denies: Difficulty Swallowing Cardiovascular: Reports: - Respiratory: Reports: Shortness of breath upon exertion Gastrointestinal: Reports: Abdominal Pain, Nausea, - - Spitting up phlegm, no real vomiting Musculoskeletal: Denies: Arm Pain Psychiatric: Reports: Anxiety Endocrine: Reports: Change in Body Habitus, - - Patient notes significant weight loss with aggressive fluid management with dialysis Patient Problems: Active and Suspected Problems (Last Reviewed 01/03/20 @ 14:[address] Chris Stark DO) SBO (small bowel obstruction) (Acute) - Physical Exam Vitals/I&O's: Vital Signs Temp Pulse Resp BP Pulse Ox 99 F 100 18 134/72 H 100 02/06/20 09:45 02/06/20 11:20 02/06/20 11:20 02/06/20 09:45 02/06/20 09:45 Oxygen Flow Rate (L/min) 3 Oxygen Delivery Method Nasal Cannula Weight: 136 lb 10.986 oz Body Mass Index (BMI) 22.0 Finger Stick Blood Glucose 200 General: Alert, Oriented x3, Cooperative, No apparent distress HEENT: - - Facial mask in place Oral: Moist Mucosa Lungs: Clear to auscultation, - - Initial breath sounds in the bases Cardiovascular: Regular rate, Regular Rhythm Abdomen: Bowel Sounds Present, Soft, Non Tender, - - Reducible mid epigastric ventral incisional midline hernia, soft, minimal diffuse mild nonspecific tenderness, viable ileostomy right lower quadrant, on digital examination it is patent with no significant peristomal hernia, no focal mass or obstructive process Groin truss in place, right inguinal hernia completely reduced, no tenderness mass or bulge right groin Extremities: - - Left upper extremity AV fistula with strong pulse and thrill and bruit Psych/Mental Status: Normal Affect Laboratory Results 02/06/20 09:30: WBC 13.8 H, RBC 3.14 L, Hgb 9.6 L, Hct 30.7 L, MCV 97.8 H, MCH 30.6, MCHC 31.3 L, RDW Std Deviation 62.0 H, RDW Coeff of Eleni 17.3 H, Plt Count 289, MPV 9.4, Immature Gran % (Auto) 1.000 H, Neut % (Auto) 81.0 H, Lymph % (Auto) 7.1 L, [place] % (Auto) 6.1, Eos % (Auto) 4.4, Baso % (Auto) 0.4, Absolute Neuts (auto) 11.2 H, Absolute Lymphs (auto) 0.98, Nucleated RBC % 0 02/06/20 09:30: Sodium 130 L, Potassium 4.4, Chloride 90 L, Carbon Dioxide 30.0, Anion Gap 10, BUN 36 H, Creatinine 5.60 H, Estim Creat Clear Calc 11.07, Est GFR (MDRD) Af Amer 13 L, Est GFR (MDRD) Non-Af 11 L, BUN/Creatinine Ratio 6.4 L, Glucose 108 H, Calcium 9.7, Total Bilirubin 0.60, AST 30, ALT 32, Alkaline Berry sphatase 148 H, Total Protein 8.5 H, Albumin 3.1 L, Globulin 5.4 H, Albumin/Globulin Ratio 0.6 L, Lipase 145 02/06/20 09:30: Lactic Acid 3.5 H* Assessment/Plan All Active Problems (Last Reviewed 01/03/20 @ 14:[address] Chris Stark, DO) Pneumonia (Acute) SBO (small bowel obstruction) (Acute) s/p fistulogram (Resolved ~09/28/18) history of surgically created arteriovenous fistula (Resolved) Stented coronary artery (Resolved) S/P CABG x 3 (Resolved 01/26/11) Status post peripheral artery angioplasty with insertion of stent (Resolved ~2010) 69-year-old gentleman who complained of abdominal pain and cessation of function of his right lower quadrant ileostomy. However already upon my examination it was noted that he has had resumption of flatus within his stomal bag. There was not a focal obstruction immediately at the fascial level of the ileostomy. He does have a ventral incisional hernia and a right inguinal hernia but both are nontender and reducible. The patient has significant medical comorbidities. He has been aggressively treated with hemodialysis to treat his recurrent pleural effusion and he likely has a degree of inspissation of his enteric contents. Findings would be consistent likely with a partial small bowel obstruction. His story of spitting up phlegm somewhat difficult to interpret but does not suggest large volume bilious emesis. Plans were to proceed with NG tube placement and I do not argue with that recommendation. The appearance and degree of output can be monitored. Pending the patient's progress and NG tube recurrent then could consider a Gastrografin small bowel follow-through if appropriate. Unfortunately the patient represents a very high risk operative candidate. He is very much aware of this as well and personally states that he feels that surgery would be a last option if even that. He does not have acute peritoneal signs. Ongoing medical management recommended at this time. I appreciate the opportunity of assisting with his surgical care. We will follow conservatively. CC: Dr Jerri Lua M.D., F.A.C.S.
--- NOTE | 2020-02-06 12:58 | ED.RN ---
DR CONSULTED ABOUT RISK FOR SEPSIS. PER ER DR NO SOURCE OF INFECTION FOUND. SEPSIS ALERT NOT INITIATED. Aimee KING RN 1300
--- NOTE | 2020-02-06 13:14 | NURSING ---
Pt is known to this nurse, so stopping in to check ostomy appliance. pt states appliance had recently been changed. pouch emptied for 150cc's unformed brown stool. moderate amount of flatus noted in the appliance as well. will monitor. Pt denies further needs at this time.
[2020-02-06] MEDS: Metoprolol Tartrate 5 MG/5 ML Vial IV (13:26)
[2020-02-06] MEDS: 0.9% Normal Saline 1,000 ML 100 ML IV ×2 (13:26→23:23)
[2020-02-06] MEDS: 0.9% Saline Lock 10 ML Syringe IV (13:26)
[2020-02-06 13:40] LABS: Reflex Lactate? Y
[2020-02-06] MEDS: Budesonide Respules 0.5 MG/2 ML AMPUL.NEB. INHALATION ×2 (14:18→19:31)
[2020-02-06] MEDS: Albuterol 2.5 MG/3 ML VIAL.NEB. INHALATION (14:18)
[2020-02-06 14:50] LABS: Lactic Acid 1.2 mmol/L (0.4-1.9)
--- NOTE | 2020-02-06 15:40 | NURSING ---
NG tube removed per Dr Suggs's order. Pt tolerated well. checked ostomy appliance. pouch emptied for 200 cc's unformed brown stool. again there was a moderate amount of flatus noted in the pouch when emptied.
--- NOTE | 2020-02-06 20:19 | NURSING ---
walked with pt in the [place]. pt walked about 100 ft. tolerated well. SBA with a cane. returned to bed, HOB elevated, and scd's applied. encouraged IS use 10x's an hour while awake. pt verbalized understanding. Pt states he is going home tomorrow and will do dialysis at home.
[2020-02-07] VITALS (9 sets, daily range): BP systolic 110–149; BP diastolic 41–58; PULSE 77–89; RESP 16–18; TEMP 36.7–37.2; O2SAT 91–97
[2020-02-07] MEDS: DiphenhydrAMINE 25 MG Capsule PO (05:26)
--- NOTE | 2020-02-07 05:55 | RAD_ITS ---
STUDY: X-RAY - ABDOMEN/PELVIS REASON FOR EXAM: Male, 69 years old. SUSPECTED SBO -- ABD PAIN TECHNIQUE: Single AP view of the abdomen / pelvis. COMPARISON: Comparison is made with prior study dated February 06, 2020. FINDINGS: The previously seen nasogastric tube appears to be at the gastroesophageal junction. There is an unremarkable bowel gas pattern. A colostomy is seen in the right lower quadrant. Extensive vascular calcification. Normal soft tissue structures. There are diffuse degenerative changes of the visualized lumbar spine. RAD/Abdomen Single View (Portable) IMPRESSION: The tip of the nasogastric tube appears to be at the gastroesophageal junction. No evidence of a small bowel obstruction. A colostomy is seen in the right lower quadrant. Electronically Signed: Deven Hensley, at 8:41 EDT , Service support ,
--- NOTE | 2020-02-07 06:34 | PCM.PN.SRG ---
Patient Problems: Active and Suspected Problems (Last Reviewed 01/03/20 @ 14:[address] Chris Stark, DO) SBO (small bowel obstruction) (Acute) Subjective: Pt feeling much better, no abdominal pain Severe pruritus at least for the past month possibly related to the very aggressive home dialysis recommendations - Physical Exam Vitals/I&O's: Vital Signs Temp Pulse Resp BP Pulse Ox 98.3 F 81 16 120/41 L 97 02/07/20 02:11 02/07/20 05:27 02/07/20 02:11 02/07/20 05:27 02/07/20 02:11 Oxygen Flow Rate (L/min) 2 Oxygen Delivery Method Nasal Cannula Weight: 144 lb Body Mass Index (BMI) 23.2 Finger Stick Blood Glucose 200 Intake and Output for Last 24 Hours 02/05/20 02/06/20 02/07/20 23:59 23:59 23:59 Intake Total 1733.33 / 1733.33 50 / 50 Output Total 1300 / 1300 400 / 400 Balance 433.33 / 433.33 -350 / -350 Abdomen: Bowel Sounds Present, Soft, Non Tender, - - liquid stool within stomal appliance Laboratory Results 02/06/20 09:30: WBC 13.8 H, RBC 3.14 L, Hgb 9.6 L, Hct 30.7 L, MCV 97.8 H, MCH 30.6, MCHC 31.3 L, RDW Std Deviation 62.0 H, RDW Coeff of Eleni 17.3 H, Plt Count 289, MPV 9.4, Immature Gran % (Auto) 1.000 H, Neut % (Auto) 81.0 H, Lymph % (Auto) 7.1 L, [place] % (Auto) 6.1, Eos % (Auto) 4.4, Baso % (Auto) 0.4, Absolute Neuts (auto) 11.2 H, Absolute Lymphs (auto) 0.98, Nucleated RBC % 0 02/06/20 09:30: Sodium 130 L, Potassium 4.4, Chloride 90 L, Carbon Dioxide 30.0, Anion Gap 10, BUN 36 H, Creatinine 5.60 H, Estim Creat Clear Calc 11.07, Est GFR (MDRD) Af Amer 13 L, Est GFR (MDRD) Non-Af 11 L, BUN/Creatinine Ratio 6.4 L, Glucose 108 H, Calcium 9.7, Total Bilirubin 0.60, AST 30, ALT 32, Alkaline Phosphatase 148 H, Total Protein 8.5 H, Albumin 3.1 L, Globulin 5.4 H, Albumin/Globulin Ratio 0.6 L, Lipase 145 02/06/20 09:30: Lactic Acid 3.5 H* 02/06/20 14:02: Lactic Acid 1.2 Current Medications Acetaminophen (Tylenol) 650 mg RECTAL Q4H PRN PRN PRN Reason: Pain Score 1-10/Temp > 100.7 F Albuterol Sulfate (Ventolin Aerosols) 2.5 mg INHALATION Q2H PRN PRN PRN Reason: Dyspnea, wheezing Last Admin: 02/06/20 14:18 Dose: 2.5 mg Documented by: Budesonide (Pulmicort Aerosol) 0.5 mg INHALATION TID [facility] Last Admin: 02/06/20 19:31 Dose: 0.5 mg Documented by: Dextrose (D50w Syringe) 0 gm IV X1 PRN; Protocol PRN Reason: Hypoglycemia Diphenhydramine HCl (Benadryl) 25 mg PO Q6H PRN PRN PRN Reason: ITCHING Last Admin: 02/07/20 05:26 Dose: 25 mg Documented by: Glucagon () 1 mg IM .X1 PRN PRN Reason: Hypoglycemia Heparin Sodium (Porcine) (Heparin Na) 5,000 unit SC Q12 [facility] Last Admin: 02/06/20 21:48 Dose: Not Given Documented by: Hydralazine HCl (Apresoline Iv) 10 mg IV Q4H PRN PRN PRN Reason: SBP > 160 Hydromorphone HCl (Dilaudid Inj) 0.5 mg IV Q3H PRN PRN PRN Reason: Pain Score 6-10/10 Sodium Chloride () 1,000 mls @ 100 mls/hr IV .Q10H [facility] Last Admin: 02/06/20 23:23 Dose: 100 mls/hr Documented by: Pantoprazole Sodium 40 mg/ (Sodium Chloride) 110 mls @ 330 mls/hr IV Q12 [facility] Last Infusion: 02/06/20 22:05 Dose: Infused Documented by: Sodium Chloride () 250 mls @ 15 mls/hr IV .[id number] PRN PRN Reason: Saline Flush Sodium Chloride () 250 mls @ 15 mls/hr IV .[id number] PRN PRN Reason: Additional IVPB Infusion Metoprolol Tartrate (Lopressor (Beta Kadi)) 5 mg IV Q8 JAIME Last Admin: 02/07/20 05:27 Dose: Not Given Documented by: Nitroglycerin (Nitrostat) 0.4 mg SUBLINGUAL Q5M PRN PRN Reason: CARDIAC/CHEST PAIN Ondansetron HCl (Zofran) 4 mg IV Q8H PRN PRN PRN Reason: NAUSEA/VOMITING Prochlorperazine Edisylate (Compazine Iv) 5 mg IV Q4H PRN PRN PRN Reason: Breakthrough nausea/vomiting Sodium Chloride () 10 - 40 ml IV UD PRN PRN Reason: SALINE FLUSH Last Admin: 02/06/20 13:26 Dose: 10 ml Documented by: Medical Necessity - Tobacco Use Smoking Status: Former smoker Tobacco Use: Non-smoker Assessment/Plan All Active Problems (Last Reviewed 01/03/20 @ 14:[address] Chris Stark, DO) Pneumonia (Acute) SBO (small bowel obstruction) (Acute) s/p fistulogram (Resolved ~09/28/18) history of surgically created arteriovenous fistula (Resolved) Stented coronary artery (Resolved) S/P CABG x 3 (Resolved 01/26/11) Status post peripheral artery angioplasty with insertion of stent (Resolved ~2010) Will advance to Renal diet and anticipate discharge I strongly suspect based upon pt history and description of stool and description of thick NGT output that his bowel malfunction was secondary to inspissated succus entericus from aggressive fluid restriction/dialysis being prescribed to treat recurrent hospitalizations for respiratory distress and pleural effusions Recommend coordinating care as outpt with Dr Alaniz. Could additionally consider bowel regimen with miralax. The pt also asked for input re: blistering at his left upper extremity AV fistula. He uses Emla cream and paper tape and bandaides. He has tried two different types of tape. This appears to be a contact dermatitis. I have asked him to stop his cream temporarily and try the blue tape available in a small roll from [facility] to see if this makes a difference. Samuel
--- NOTE | 2020-02-07 06:49 | PCM.PN.HOSP ---
Patient Problems: Active and Suspected Problems (Last Reviewed 01/03/20 @ 14:[address] Chris Stark, DO) SBO (small bowel obstruction) (Acute) Vitals/I&O's: Vital Signs Temp Pulse Resp BP Pulse Ox 98.3 F 81 16 120/41 L 97 02/07/20 02:11 02/07/20 05:27 02/07/20 02:11 02/07/20 05:27 02/07/20 02:11 Oxygen Flow Rate (L/min) 2 Oxygen Delivery Method Nasal Cannula Weight: 144 lb Body Mass Index (BMI) 23.2 Finger Stick Blood Glucose 200 Intake and Output for Last 24 Hours 02/05/20 02/06/20 02/07/20 23:59 23:59 23:59 Intake Total 1733.33 / 1733.33 50 / 50 Output Total 1300 / 1300 400 / 400 Balance 433.33 / 433.33 -350 / -350 Laboratory Results 02/06/20 09:30: WBC 13.8 H, RBC 3.14 L, Hgb 9.6 L, Hct 30.7 L, MCV 97.8 H, MCH 30.6, MCHC 31.3 L, RDW Std Deviation 62.0 H, RDW Coeff of Eleni 17.3 H, Plt Count 289, MPV 9.4, Immature Gran % (Auto) 1.000 H, Neut % (Auto) 81.0 H, Lymph % (Auto) 7.1 L, Irion % (Auto) 6.1, Eos % (Auto) 4.4, Baso % (Auto) 0.4, Absolute Neuts (auto) 11.2 H, Absolute Lymphs (auto) 0.98, Nucleated RBC % 0 02/06/20 09:30: Sodium 130 L, Potassium 4.4, Chloride 90 L, Carbon Dioxide 30.0, Anion Gap 10, BUN 36 H, Creatinine 5.60 H, Estim Creat Clear Calc 11.07, Est GFR (MDRD) Af Amer 13 L, Est GFR (MDRD) Non-Af 11 L, BUN/Creatinine Ratio 6.4 L, Glucose 108 H, Calcium 9.7, Total Bilirubin 0.60, AST 30, ALT 32, Alkaline Phosphatase 148 H, Total Protein 8.5 H, Albumin 3.1 L, Globulin 5.4 H, Albumin/Globulin Ratio 0.6 L, Lipase 145 02/06/20 09:30: Lactic Acid 3.5 H* 02/06/20 14:02: Lactic Acid 1.2 Current Medications Acetaminophen (Tylenol) 650 mg RECTAL Q4H PRN PRN PRN Reason: Pain Score 1-10/Temp > 100.7 F Albuterol Sulfate (Ventolin Aerosols) 2.5 mg INHALATION Q2H PRN PRN PRN Reason: Dyspnea, wheezing Last Admin: 02/06/20 14:18 Dose: 2.5 mg Documented by: Budesonide (Pulmicort Aerosol) 0.5 mg INHALATION TID [facility] Last Admin: 02/06/20 19:31 Dose: 0.5 mg Documented by: Dextrose (D50w Syringe) 0 gm IV X1 PRN; Protocol PRN Reason: Hypoglycemia Diphenhydramine HCl (Benadryl) 25 mg PO Q6H PRN PRN PRN Reason: ITCHING Last Admin: 02/07/20 05:26 Dose: 25 mg Documented by: Glucagon () 1 mg IM .X1 PRN PRN Reason: Hypoglycemia Heparin Sodium (Porcine) (Heparin Na) 5,000 unit SC Q12 [facility] Last Admin: 02/06/20 21:48 Dose: Not Given Documented by: Hydralazine HCl (Apresoline Iv) 10 mg IV Q4H PRN PRN PRN Reason: SBP > 160 Hydromorphone HCl (Dilaudid Inj) 0.5 mg IV Q3H PRN PRN PRN Reason: Pain Score 6-10/10 Sodium Chloride () 1,000 mls @ 100 mls/hr IV .Q10H [facility] Last Admin: 02/06/20 23:23 Dose: 100 mls/hr Documented by: Pantoprazole Sodium 40 mg/ (Sodium Chloride) 110 mls @ 330 mls/hr IV Q12 [facility] Last Infusion: 02/06/20 22:05 Dose: Infused Documented by: Sodium Chloride () 250 mls @ 15 mls/hr IV .[id number] PRN PRN Reason: Saline Flush Sodium Chloride () 250 mls @ 15 mls/hr IV .[id number] PRN PRN Reason: Additional IVPB Infusion Metoprolol Tartrate (Lopressor (Beta Kadi)) 5 mg IV Q8 [facility] Last Admin: 02/07/20 05:27 Dose: Not Given Documented by: Nitroglycerin (Nitrostat) 0.4 mg SUBLINGUAL Q5M PRN PRN Reason: CARDIAC/CHEST PAIN Ondansetron HCl (Zofran) 4 mg IV Q8H PRN PRN PRN Reason: NAUSEA/VOMITING Prochlorperazine Edisylate (Compazine Iv) 5 mg IV Q4H PRN PRN PRN Reason: Breakthrough nausea/vomiting Sodium Chloride () 10 - 40 ml IV UD PRN PRN Reason: SALINE FLUSH Last Admin: 02/06/20 13:26 Dose: 10 ml Documented by: STROKE Vital Signs/Narrative: Vital Signs Pulse BP BP 02/07/20 05:27 81 120/41 L 02/07/20 05:23 81 120/41 L 02/07/20 04:05 88 Medical Necessity - Tobacco Use Smoking Status: Former smoker Tobacco Use: Non-smoker Assessment/Plan All Active Problems (Last Reviewed 01/03/20 @ 14:[address] Chris Stark, DO) Pneumonia (Acute) SBO (small bowel obstruction) (Acute) s/p fistulogram (Resolved ~09/28/18) history of surgically created arteriovenous fistula (Resolved) Stented coronary artery (Resolved) S/P CABG x 3 (Resolved 01/26/11) Status post peripheral artery angioplasty with insertion of stent (Resolved ~2010)
[2020-02-07 07:02] LABS: Absolute Lymphocyte Count 1.22 X10^3/uL (0.83-4.51); Absolute Neutrophil Count 11.6 X10^3/uL (2.0-7.7); Basophil# 0.05 X10^3/uL; Basophil% 0.3 % (0-1); Eosinophil# 0.85 X10^3/uL; Eosinophils% 5.8 % (0-5); Hematocrit 26.2 % (40-54); Hemoglobin 8.3 g/dL (13.0-16.5); Lymphocyte # 1.22 X10^3/ul (4.0); Lymphocyte % 8.3 % (19-41); Mean Corp Hgb Conc 31.7 g/dL (32-36); Mean Corpuscular Hgb 31.4 pg (27.0-32.0); Mean Corpuscular Volume 99.2 fL (80-94); Mean Platelet Vol. 9.1 fl (6.2-12.0); Monocyte# 0.92 X10^3/uL; Monocyte% 6.3 % (0-10); NRBC Flagged by Analyzer 0 % (0-5); Neutrophil # 11.61 X10^3/uL (2.7-7.7); Neutrophil % 78.8 % (47-70); Platelet Count 228 K/mm3 (150-450); RBC Distribution Width CV 17.6 % (11.6-14.6); RBC Distribution Width SD 63.5 fl (35.1-43.9); Red Blood Count 2.64 M/mm3 (4.6-6.2); White Blood Count 14.7 K/mm3 (4.4-11.0)
[2020-02-07 07:16] LABS: Anion Gap 11 (5-15); BUN 43 mg/dL (7-18); BUN/Creat Ratio 6.3 RATIO (10-20); Calcium,Total 8.8 mg/dL (8.5-10.1); Chloride 96 mmol/L (98-107); EST Glomerular Filtration Rate 9 mL/min (>60); Est Glom Filt Rate - Afr Amer 11 mL/min (>60); Estimated Creatinine Clearance 9.38 ml/min; Glucose 85 mg/dL (74-106); Potassium 4.9 mmol/L (3.5-5.1); Sodium Level 131 mmol/L (136-145)
--- NOTE | 2020-02-07 07:49 | DCINST_ITS ---
- Discharge Diagnoses Current Active Problems: Current Active and Chronic Problems (Last Reviewed 01/03/20 @ 14:[address] Chris Stark, DO) 1. Suspected Early SBO versus Ileus with Intractable Abdominal Pain, Nausea, Emesis, Abdominal Distention with Malfunctioning Ostom 2. CAD. 3. PAD/PVD 4. Diastolic CHF 5. Chronic atrial fibrillation 6. ESRD 7. Former Tobacco Abuse 8. Chronic COPD 9. BPH 10. RAVEN 11. GERD 12. Hyponatremia, Chronic 13. Chronic Anemia, Fe Deficiency Anemia, AOCD 14. CODE status: full code You will use the following diet at home:: Other - Renal diet Your food should be the consistency of: Regular Your liquids should be the consistency of: Regular/Thin Discharge Activity: - - Encourage routien regular activity. May resume sexual activity in: No Restrictions Weight Bearing Status: Weight bearing as tolerated Call your doctor if you observe: Fever of 101 or Higher, Inability to urinate, Inability to have a bowel movement - No output from ostomy., Shortness of breath, Dizziness, Fainting spells, Chest pain, Uncontrolled pain Instructions: Changing Your Ostomy Pouch, Small Bowel Obstruction Allergies/Adverse Reactions: Allergies irbesartan [From Avapro] Allergy (Severe, Verified 02/06/20 09:05) Blisters zolpidem [From Ambien] Adverse Reaction (Severe, Verified 02/06/20 09:05) made me go crazy, memory loss amoxicillin Adverse Reaction (Intermediate, Verified 02/06/20 09:05) PASSES BLOOD IN STOOL TOLERATES ZOSYN PASSES BLOOD IN STOOL metronidazole [From Flagyl] Adverse Reaction (Verified 02/06/20 09:05) pt states he got palpitations and nose bleed. pt states he got palpitations and nose bleed. Medications to take at Discharge Budesonide Aerosol [Pulmicort Respules] 1 inh INHALATION TID 07/23/19 Ipratropium/Albuterol Sulfate [Iprat-Albut 0.5-3(2.5) mg/3 ml] 1 inh INHALATION Q4H PRN PRN 07/23/19 Omeprazole 40 mg PO BID 07/23/19 Rosuvastatin Calcium [Crestor] 40 mg PO QHS 07/23/19 Tamsulosin HCl [Flomax] 0.8 mg PO DAILY 07/23/19 Metoprolol Succinate [Toprol Xl] 50 mg PO BID 08/08/19 hydrOXYzine pamoate capsule [Vistaril pamoate capsule] 25 mg PO 4X/DAY PRN PRN #30 cap 02/07/20 The following prescriptions were given: hydrOXYzine pamoate capsule [Vistaril pamoate capsule] 25 mg PO 4X/DAY PRN PRN #30 cap PRN Reason: pruritits Transmission Status: Pending to [id number] Primary Care Physician: Tania Berger, ARMEN-C [Primary Care Provider] - Please follow up with your Primary Care Physician in: Follow-up within 3-5 days to review admission. Test Results: Test results from this visit will be discussed in further detail at your follow- up appointment, if applicable. Please Follow Up With: Caleb Alaniz MD When: As routinely scheduled for HD. Proposed Discharge Date: 02/07/20
[2020-02-07] MEDS: Budesonide Respules 0.5 MG/2 ML AMPUL.NEB. INHALATION (07:54)
--- NOTE | 2020-02-07 07:54 | PCM.DC.SUM ---
Discharge Date and Diagnosis - Problem List Patient Problems: Active and Suspected Problems (Last Reviewed 01/03/20 @ 14:[address] Chris Stark DO) SBO (small bowel obstruction) (Acute) Date of Admission: 02/06/20 Date of Discharge: 02/07/20 - Primary Discharge Diagnosis Active and Suspected Problems (Last Reviewed 01/03/20 @ 14:[address] Chris Stark DO) 1. Suspected Early SBO versus Ileus with Intractable Abdominal Pain, Nausea, Emesis, Abdominal Distention with Malfunctioning Ostom 2. CAD. 3. PAD/PVD 4. Diastolic CHF 5. Chronic atrial fibrillation 6. ESRD 7. Former Tobacco Abuse 8. Chronic COPD 9. BPH 10. RAVEN 11. GERD 12. Hyponatremia, Chronic 13. Chronic Anemia, Fe Deficiency Anemia, AOCD 14. CODE status: full code - Secondary Discharge Diagnosis Chronic Problems (Last Reviewed 01/03/20 @ 14:[address] Chris Stark DO) Transudative pleural effusion (Chronic) Chronic atrial fibrillation (Chronic) Problem with dialysis access (Chronic) RAVEN (obstructive sleep apnea) (Chronic) AHI 426. ESRD (end stage renal disease) (Chronic) History of non-ST elevation myocardial infarction (NSTEMI) (Chronic 01/21/11) Atherosclerotic heart disease of [place] coronary artery without angina pectoris (Chronic) 2003, JASON to circumflex ; 10/10/[address] [facility] to [facility], total of 5 bare metal stents to RCA; CABG X 3 vessels @ [facility] 01/31/2011 (critical left main and restenosis of RCA stents) Diastolic CHF (Chronic) HLD (hyperlipidemia) (Chronic) HTN (hypertension) (Chronic) PAD (peripheral artery disease) (Chronic) COPD (chronic obstructive pulmonary disease) (Chronic) Tobacco dependence (Chronic) Anemia (Chronic) BPH (benign prostatic hyperplasia) (Chronic) Hospital Course and Treatment Imaging Results: 02/07/20 05:55 Abdomen Single View (Portable) [RAD] AM (NON MEDS) 02/08/20 05:55 Abdomen Single View (Portable) [RAD] AM (NON MEDS) 02/09/20 05:55 Abdomen Single View (Portable) [RAD] AM (NON MEDS) 02/10/20 05:55 Abdomen Single View (Portable) [RAD] AM (NON MEDS) 02/11/20 05:55 Abdomen Single View (Portable) [RAD] AM (NON MEDS) Dr. Lua Surgery Dr. Alaniz Nephrology Operations: None Procedures: EKG Summary of Care Provided: The patient is a 69 y/o M w/ PMHx: RAVEN on BIPAP, Chronic AF not anticoagulated secondary to GI bleeding history, CAD s/p CABG x 3 and PCI, Chronic COPD, ESRD on HD following w/ Dr. Alaniz, HTN, HLD, PAD s/p R common iliac angioplasty and PCI, Tobacco use, Diastolic CHF, Chronic anemia/AOCD, GERD w/ Hx GI bleed, Hx Mesenteric Ischemia s/p colectomy who presented to the [facility] ED on 02/06/20 with history of progressively worsening BL LQ severe, 10/10 abdominal pain with distention, nausea with emesis, hyperactive bowel sounds with no stool ostomy output. He has had no recent fever, chills associated. Work-up in the ED included T 99, heart rate 85, BP 134/72, respiratory rate 20, on a percent on 3 L nasal cannula, CBC with WC 13.8, hemoglobin 9.6, platelet 289 with left shift with mild lymphopenia with absolute lymphocyte normal, CMP with sodium 130, chloride 90, BUN/creatinine 36/5.60, glucose 108, lactic acid 3.5, lipase 145 otherwise hepatic profile not market appearing, CT abdomen and pelvis with evidence status post subtotal colectomy, ostomy right lower quadrant, mildly dilated fluid-filled small bowel loops, extensive atherosclerotic calcification of the abdominal aorta and the major visceral branches, moderate sized right pleural effusion with underlying infiltration and or atelectasis, small left pleural effusion. In the ED patient administered Afrin, Zofran, morphine, Ativan and inhaled lidocaine with NGT placement given ongoing intractable nausea, emesis and abdominal distention. Patient admitted to [facility] on telemetry given IV BB usage given NPO status, maintained on IVFs, continued NGT to suction, strict I&Os, IV pain/anti-emetics PRN, serial KUB as needed to montior bowel function, Protonix IV, maintained NPO on bowel rest with Dr. Lua continued evaluation. Patient afternoon following admission with onset flatus and stool output in the ostomy bag. NG tube with a total of 450 cc output. Abdominal discomfort resolved and patient denied any nausea or emesis. Patient eager for NG tube out and diet intake as well as discharge. Discussed change with Dr. Lua and he was amenable to discontinuation of NG tube with allowance of clear liquids. Patient tolerated clears and was transitioned to renal diet. Discussed case with Dr. Alaniz regarding Dr. Lua concerns that presentation and pruritis related to the aggressiveness of his HD and he noted intention to lessen his settings. Patient discharged to home in stable condition with recommended follow-up with PCP and Nephrology. DAY OF DISCHARGE PROGRESS NOTE: Subjective: Patient without acute event overnight per self and nursing report. Patient denies fever, chills, recurrent nausea, emesis, abdominal pain, chest pain or dyspnea. Patient tolerating meal and has been transitioned to renal diet following evaluation this a.m. per general surgery. Patient agreeable to discharge to home and very eager to be discharged. Patient will be discharged with follow-up with primary care physician within 3-5 days in addition to routine follow-up with his physician's aide. Nephrology was also contacted this a.m. to discuss general surgery concerns that he may be having too aggressive of dialysis parameters which have led to his current presentation and possibly his pruritus as well. Objective: T 98.3, heart rate 77, BP 110/49, respiratory rate 16, 97% on 2 L nasal cannula. Physical Examination: General: awake, alert, oriented x 3 and cooperative, seated upright in the MS bed, NAD, NG out, tolerated clears, advancing diet, eager for dc he notes. Skin: normal color, turgor, no icterus, cyanosis except regions of skin irritation likely secondary to severity of itching as patient notes he had a month of pruritus and often will itch until he bleeds amenable to trying Vistaril as Benadryl has failed. HEENT: AT/NC, EOMI, PERRLA, improved MMM. Lungs: Diminished breath sounds bilaterally, greater bilateral bases, no rales, ronchi or wheezing. Heart: Regular rate and rhythm; no gallop, rub audible. Abdomen: Improved, soft, minimal RLQ discomfort, no rebound or guarding, non-distended, normalized BS, appropriate ostomy bag output, flatus. Extremities: no cyanosis, clubbing, or edema, + RUE AVF thrill. Neurological: patient awake, alert, oriented x 3; cognitive function appears baseline intact; pupils equally reactive to light and accomodation; cranial nerves II-XII grossly normal, moving all 4 extremities, no focal deficits, strength improved, moderately globally decreased secondary to acute presentation and pain. Psychiatric: affect appears improved, eager for discharge, no acute evidence of depressive or anxiety feelings. Assessment and Plan: Please see hospital summary above. Patient Problems: Active and Suspected Problems (Last Reviewed 01/03/20 @ 14:[address] Chris Stark, DO) SBO (small bowel obstruction) (Acute) - Physical Exam Vitals/I&O's: Vital Signs Temp Pulse Resp BP Pulse Ox 98.3 F 81 16 120/41 L 97 02/07/20 02:11 02/07/20 05:27 02/07/20 02:11 02/07/20 05:27 02/07/20 02:11 Oxygen Flow Rate (L/min) 2 Oxygen Delivery Method Nasal Cannula Weight: 144 lb Body Mass Index (BMI) 23.2 Finger Stick Blood Glucose 200 Intake and Output for Last 24 Hours 02/05/20 02/06/20 02/07/20 23:59 23:59 23:59 Intake Total 1733.33 / 1733.33 50 / 50 Output Total 1300 / 1300 400 / 400 Balance 433.33 / 433.33 -350 / -350 Laboratory Results 02/06/20 09:30: WBC 13.8 H, RBC 3.14 L, Hgb 9.6 L, Hct 30.7 L, MCV 97.8 H, MCH 30.6, MCHC 31.3 L, RDW Std Deviation 62.0 H, RDW Coeff of Eleni 17.3 H, Plt Count 289, MPV 9.4, Immature Gran % (Auto) 1.000 H, Neut % (Auto) 81.0 H, Lymph % (Auto) 7.1 L, Garvin % (Auto) 6.1, Eos % (Auto) 4.4, Baso % (Auto) 0.4, Absolute Neuts (auto) 11.2 H, Absolute Lymphs (auto) 0.98, Nucleated RBC % 0 02/06/20 09:30: Sodium 130 L, Potassium 4.4, Chloride 90 L, Carbon Dioxide 30.0, Anion Gap 10, BUN 36 H, Creatinine 5.60 H, Estim Creat Clear Calc 11.07, Est GFR (MDRD) Af Amer 13 L, Est GFR (MDRD) Non-Af 11 L, BUN/Creatinine Ratio 6.4 L, Glucose 108 H, Calcium 9.7, Total Bilirubin 0.60, AST 30, ALT 32, Alkaline Phosphatase 148 H, Total Protein 8.5 H, Albumin 3.1 L, Globulin 5.4 H, Albumin/Globulin Ratio 0.6 L, Lipase 145 02/06/20 09:30: Lactic Acid 3.5 H* 02/06/20 14:02: Lactic Acid 1.2 02/07/20 06:35: WBC 14.7 H, RBC 2.64 L, Hgb 8.3 L, Hct 26.2 L, MCV 99.2 H, MCH 31.4, MCHC 31.7 L, RDW Std Deviation 63.5 H, RDW Coeff of Eleni 17.6 H, Plt Count 228, MPV 9.1, Immature Gran % (Auto) 0.500, Neut % (Auto) 78.8 H, Lymph % (Auto) 8.3 L, Garvin % (Auto) 6.3, Eos % (Auto) 5.8 H, Baso % (Auto) 0.3, Absolute Neuts (auto) 11.6 H, Absolute Lymphs (auto) 1.22, Nucleated RBC % 0 02/07/20 06:35: Sodium 131 L, Potassium 4.9, Chloride 96 L, Carbon Dioxide 24.0, Anion Gap 11, BUN 43 H, Creatinine 6.80 H, Estim Creat Clear Calc 9.38, Est GFR (MDRD) Af Amer 11 L, Est GFR (MDRD) Non-Af 9 L, BUN/Creatinine Ratio 6.3 L, Glucose 85, Calcium 8.8 Current Medications Acetaminophen (Tylenol) 650 mg RECTAL Q4H PRN PRN PRN Reason: Pain Score 1-10/Temp > 100.7 F Albuterol Sulfate (Ventolin Aerosols) 2.5 mg INHALATION Q2H PRN PRN PRN Reason: Dyspnea, wheezing Last Admin: 02/06/20 14:18 Dose: 2.5 mg Documented by: Budesonide (Pulmicort Aerosol) 0.5 mg INHALATION TID [facility] Last Admin: 04/22/20 19:31 Dose: 0.5 mg Documented by: Dextrose (D50w Syringe) 0 gm IV X1 PRN; Protocol PRN Reason: Hypoglycemia Diphenhydramine HCl (Benadryl) 25 mg PO Q6H PRN PRN PRN Reason: ITCHING Last Admin: 02/07/20 05:26 Dose: 25 mg Documented by: Glucagon () 1 mg IM .X1 PRN PRN Reason: Hypoglycemia Heparin Sodium (Porcine) (Heparin Na) 5,000 unit SC Q12 [facility] Last Admin: 02/06/20 21:48 Dose: Not Given Documented by: Hydralazine HCl (Apresoline Iv) 10 mg IV Q4H PRN PRN PRN Reason: SBP > 160 Hydromorphone HCl (Dilaudid Inj) 0.5 mg IV Q3H PRN PRN PRN Reason: Pain Score 6-10/10 Hydroxyzine Pamoate (Vistaril Pamoate Capsule) 25 mg PO X1 ONE Stop: 02/07/20 07:43 Hydroxyzine Pamoate (Vistaril Pamoate Capsule) 25 mg PO 4X/DAY PRN PRN PRN Reason: pruritits Sodium Chloride () 1,000 mls @ 100 mls/hr IV .Q10H [facility] Last Admin: 02/06/20 23:23 Dose: 100 mls/hr Documented by: Pantoprazole Sodium 40 mg/ (Sodium Chloride) 110 mls @ 330 mls/hr IV Q12 [facility] Last Infusion: 02/06/20 22:05 Dose: Infused Documented by: Sodium Chloride () 250 mls @ 15 mls/hr IV .[id number] PRN PRN Reason: Saline Flush Sodium Chloride () 250 mls @ 15 mls/hr IV .[id number] PRN PRN Reason: Additional IVPB Infusion Metoprolol Tartrate (Lopressor (Beta Kadi)) 5 mg IV Q8 [facility] Last Admin: 02/07/20 05:27 Dose: Not Given Documented by: Nitroglycerin (Nitrostat) 0.4 mg SUBLINGUAL Q5M PRN PRN Reason: CARDIAC/CHEST PAIN Ondansetron HCl (Zofran) 4 mg IV Q8H PRN PRN PRN Reason: NAUSEA/VOMITING Prochlorperazine Edisylate (Compazine Iv) 5 mg IV Q4H PRN PRN PRN Reason: Breakthrough nausea/vomiting Sodium Chloride () 10 - 40 ml IV UD PRN PRN Reason: SALINE FLUSH Last Admin: 02/06/20 13:26 Dose: 10 ml Documented by: Discharge Activity: - - Encourage routien regular activity. May resume sexual activity in: No Restrictions Weight Bearing Status: Weight bearing as tolerated Call your doctor if you observe: Fever of 101 or Higher, Inability to urinate, Inability to have a bowel movement - No output from ostomy., Shortness of breath, Dizziness, Fainting spells, Chest pain, Uncontrolled pain Home Medications: Medications to take at Discharge Budesonide Aerosol [Pulmicort Respules] 1 inh INHALATION TID 07/23/19 Ipratropium/Albuterol Sulfate [Iprat-Albut 0.5-3(2.5) mg/3 ml] 1 inh INHALATION Q4H PRN PRN 07/23/19 Omeprazole 40 mg PO BID 07/23/19 Rosuvastatin Calcium [Crestor] 40 mg PO QHS 07/23/19 Tamsulosin HCl [Flomax] 0.8 mg PO DAILY 07/23/19 Metoprolol Succinate [Toprol Xl] 50 mg PO BID 08/08/19 hydrOXYzine pamoate capsule [Vistaril pamoate capsule] 25 mg PO 4X/DAY PRN PRN #30 cap 02/07/20 Following Prescrptions Were Given to Patient: hydrOXYzine pamoate capsule [Vistaril pamoate capsule] 25 mg PO 4X/DAY PRN PRN #30 cap PRN Reason: pruritits Transmission Status: Pending to [id number] Primary Care Physician: Tania Berger, ARMEN-C [Primary Care Provider] - Please follow up with your Primary Care Physician in: Follow-up within 3-5 days to review admission. Please Follow Up With: Caleb Alaniz MD When: As routinely scheduled for HD. Patient Instructions: Small Bowel Obstruction, Changing Your Ostomy Pouch Medical Necessity - Tobacco Use Smoking Status: Former smoker Tobacco Use: Non-smoker Meaningful Use Info Meaningful Use Diagnoses (Choose all that apply): None applicable OBSV E&M: 41136 Observation care discharge
[2020-02-07] MEDS: hydrOXYzine PAM 25 MG Capsule PO (08:11)
--- NOTE | 2020-02-07 09:57 | CASEMGMT ---
RN CM Assessment Note Presentation: SBO vs Ileus Intro role of CM and purpose of RN CM assessment to patient in room. Pt is awake, alert, receiving dialysis. Demographics, PCP and Pharmacy verified. Plan is to return home today. Pt is denying any dc needs at this time. States he is staying homebound and is able to assist with any needs. PCP: MABLE PoeC Specialists: Nephrology [facility] Prescription Benefit: yes LNOK : Living Arrangements: Lives in one story home with , 2 steps into home. Pt states he is still independent with ADL's/IADL's. If assistance is needed, is able to assist. Transportation: pt states his does all driving for him. Dialysis: Home Dialysis through [facility] 5x week. DME: Hand held shower, grab bars, cane -oxygen 2-3L NC through [employer], portable concentrator (in hospital for dc), Bipap-functioning per pt. HHC: none. Patient DC goals: Home DC PLAN: Home today. Pt is declining needs at this time. Advised to contact cm for any concerns/needs that may arise. Deangelo UMAÑAN RN ACM
--- NOTE | 2020-02-07 12:17 | CON.PCM_ITS ---
Problem List (1) ESRD (end stage renal disease) on dialysis Status: Acute Consultation - Renal 02/07/20 PCP/ Referring MD: Requesting physician: [] Primary care physician: SEUN Poe Reason for Consultation:: ESRD - History of Present Illness History of Present Illness: The patient is a 69 year old M Well known to us. He has known history of end- stage renal disease on home hemodialysis. Usually does treatments 4-5 times a week. Access is an AV fistula. Multiple admissions recently due to fluid overload, pleural effusions. Have been somewhat aggressive with fluid removal. Now admitted with what looks like partial small bowel obstruction which is now resolved. 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 Currently seen on dialysis. No new complaints. His dry weight has been around 62 kg. - Allergies Allergies: Allergies irbesartan [From Avapro] Allergy (Severe, Verified 02/06/20 09:05) Blisters zolpidem [From Ambien] Adverse Reaction (Severe, Verified 02/06/20 09:05) made me go crazy, memory loss amoxicillin Adverse Reaction (Intermediate, Verified 02/06/20 09:05) PASSES BLOOD IN STOOL TOLERATES ZOSYN PASSES BLOOD IN STOOL metronidazole [From Flagyl] Adverse Reaction (Verified 02/06/20 09:05) pt states he got palpitations and nose bleed. pt states he got palpitations and nose bleed. - Current Medications Current Medications: Current Medications Acetaminophen (Tylenol) 650 mg RECTAL Q4H PRN PRN PRN Reason: Pain Score 1-10/Temp > 100.7 F Albuterol Sulfate (Ventolin Aerosols) 2.5 mg INHALATION Q2H PRN PRN PRN Reason: Dyspnea, wheezing Last Admin: 02/06/20 14:18 Dose: 2.5 mg Documented by: Budesonide (Pulmicort Aerosol) 0.5 mg INHALATION TID JAIME Last Admin: 02/07/20 07:54 Dose: 0.5 mg Documented by: Dextrose (D50w Syringe) 0 gm IV X1 PRN; Protocol PRN Reason: Hypoglycemia Diphenhydramine HCl (Benadryl) 25 mg PO Q6H PRN PRN PRN Reason: ITCHING Last Admin: 02/07/20 05:26 Dose: 25 mg Documented by: Glucagon () 1 mg IM .X1 PRN PRN Reason: Hypoglycemia Heparin Sodium (Porcine) (Heparin Na) 5,000 unit SC Q12 COUNT INCLUDES THE [facility] Last Admin: 02/07/20 08:12 Dose: Not Given Documented by: Hydralazine HCl (Apresoline Iv) 10 mg IV Q4H PRN PRN PRN Reason: SBP > 160 Hydromorphone HCl (Dilaudid Inj) 0.5 mg IV Q3H PRN PRN PRN Reason: Pain Score 6-10/10 Hydroxyzine Pamoate (Vistaril Pamoate Capsule) 25 mg PO 4X/DAY PRN PRN PRN Reason: pruritits Sodium Chloride () 1,000 mls @ 100 mls/hr IV .Q10H COUNT INCLUDES THE [facility] Last Infusion: 02/07/20 08:12 Dose: Infused Documented by: Pantoprazole Sodium 40 mg/ (Sodium Chloride) 110 mls @ 330 mls/hr IV Q12 COUNT INCLUDES THE [facility] Last Admin: 02/07/20 08:13 Dose: Not Given Documented by: Sodium Chloride () 250 mls @ 15 mls/hr IV .[id number] PRN PRN Reason: Saline Flush Sodium Chloride () 250 mls @ 15 mls/hr IV .[id number] PRN PRN Reason: Additional IVPB Infusion Metoprolol Tartrate (Lopressor (Beta Kadi)) 5 mg IV Q8 COUNT INCLUDES THE [facility] Last Admin: 02/07/20 05:27 Dose: Not Given Documented by: Nitroglycerin (Nitrostat) 0.4 mg SUBLINGUAL Q5M PRN PRN Reason: CARDIAC/CHEST PAIN Ondansetron HCl (Zofran) 4 mg IV Q8H PRN PRN PRN Reason: NAUSEA/VOMITING Prochlorperazine Edisylate (Compazine Iv) 5 mg IV Q4H PRN PRN PRN Reason: Breakthrough nausea/vomiting Sodium Chloride () 10 - 40 ml IV UD PRN PRN Reason: SALINE FLUSH Last Admin: 02/06/20 13:26 Dose: 10 ml Documented by: - Past Medical History Past Medical History (Chronic Problems): Chronic Problems (Last Reviewed 01/03/20 @ 14:[address] Chris Stark, DO) Transudative pleural effusion (Chronic) Chronic atrial fibrillation (Chronic) Problem with dialysis access (Chronic) RAVEN (obstructive sleep apnea) (Chronic) AHI 426. ESRD (end stage renal disease) (Chronic) History of non-ST elevation myocardial infarction (NSTEMI) (Chronic 01/21/11) Atherosclerotic heart disease of [place] coronary artery without angina pectoris (Chronic) 2003, JASON to circumflex ; 10/10/2009 tsfer from [facility] to [facility], total of 5 bare metal stents to RCA; CABG X 3 vessels @ [facility] 01/31/2011 (critical left main and restenosis of RCA stents) Diastolic CHF (Chronic) HLD (hyperlipidemia) (Chronic) HTN (hypertension) (Chronic) PAD (peripheral artery disease) (Chronic) COPD (chronic obstructive pulmonary disease) (Chronic) Tobacco dependence (Chronic) Anemia (Chronic) BPH (benign prostatic hyperplasia) (Chronic) - Past Surgical History Surgical History: coronary bypass surgery, tonsillectomy, - - CABG x3, multiple PCI coronary arteries, right common iliac angioplasty and stenting, aVF, tonsillectomy, multiple endoscopies with intervention. - Social History Smoking Status: Former smoker Alcohol: None Drugs: None - Family History Maternal Family History: Family History (Last Reviewed 01/03/20 @ 14:[address] Chris Stark DO) Father CAD (coronary artery disease) Hypertension Kidney disease CVA (cerebral vascular accident) Other Cancer History Items: Heart Disease Paternal Family History: Family History (Last Reviewed 01/03/20 @ 14:[address] Chris Stark DO) Father CAD (coronary artery disease) Hypertension Kidney disease CVA (cerebral vascular accident) Other Cancer History Items: Heart Disease, Hypertension, Renal Disease Review of Systems Constitutional: Denies: Chills, Fever, Weight Change HEENT: Denies: Head Aches, Sinus Congestion, Sinus Drainage Cardiovascular: Denies: Chest Pain, Palpitations Respiratory: Denies: Cough, Shortness of breath at rest, Sputum production Gastrointestinal: Denies: Abdominal Pain, Nausea, Vomiting Genitourinary: Denies: Dysuria Musculoskeletal: Denies: Joint Pain, Joint Tenderness Skin: Denies: Rash, Wounds Neurological: Denies: Numbness, Tingling, Focal weakness Psychiatric: Denies: Anxiety, Depression, Homicidal Ideations, Suicidal Ideations Hematologic/ Lymphatic: Denies: Easy Bruising, Easy Bleeding Patient Problems: Active and Suspected Problems (Last Reviewed 01/03/20 @ 14:[address] Chris Stark, DO) SBO (small bowel obstruction) (Acute) ESRD (end stage renal disease) on dialysis (Acute) - Physical Exam Vitals/I&O's: Vital Signs Temp Pulse Resp BP Pulse Ox 98.0 F 89 18 149/57 H 94 02/07/20 08:13 02/07/20 08:28 02/07/20 08:13 02/07/20 08:13 02/07/20 08:13 Oxygen Flow Rate (L/min) 2 Oxygen Delivery Method Nasal Cannula Weight: 65.317 kg Body Mass Index (BMI) 23.2 Finger Stick Blood Glucose 200 Intake and Output for Last 24 Hours 02/05/20 02/06/20 02/07/20 23:59 23:59 23:59 Intake Total 1733.33 / 1733.33 931.67 / 931.67 Output Total 1300 / 1300 400 / 400 Balance 433.33 / 433.33 531.67 / 531.67 General: Alert, Oriented x3, Cooperative HEENT: Atraumatic, PERRLA, EOMI, Normocephalic Neck: Supple, No JVD, Negative Carotid Bruits Lungs: Clear to auscultation, Normal air movement Cardiovascular: Regular rate, No murmurs Abdomen: Bowel Sounds Present, Soft, Non Tender Extremities: No edema, Capillary Refill Less than 3 Seconds Skin: No rashes, No breakdown Musculoskeletal: No Tenderness to Palpation of Joints or Extremities Neurological: Cranial nerves II-XII grossly intact Psych/Mental Status: Normal Affect, Appropriate Laboratory Results 02/06/20 14:02: Lactic Acid 1.2 02/07/20 06:35: WBC 14.7 H, RBC 2.64 L, Hgb 8.3 L, Hct 26.2 L, MCV 99.2 H, MCH 31.4, MCHC 31.7 L, RDW Std Deviation 63.5 H, RDW Coeff of Eleni 17.6 H, Plt Count 228, MPV 9.1, Immature Gran % (Auto) 0.500, Neut % (Auto) 78.8 H, Lymph % (Auto) 8.3 L, Luce % (Auto) 6.3, Eos % (Auto) 5.8 H, Baso % (Auto) 0.3, Absolute Neuts (auto) 11.6 H, Absolute Lymphs (auto) 1.22, Nucleated RBC % 0 02/07/20 06:35: Sodium 131 L, Potassium 4.9, Chloride 96 L, Carbon Dioxide 24.0, Anion Gap 11, BUN 43 H, Creatinine 6.80 H, Estim Creat Clear Calc 9.38, Est GFR (MDRD) Af Amer 11 L, Est GFR (MDRD) Non-Af 9 L, BUN/Creatinine Ratio 6.3 L, Glucose 85, Calcium 8.8 Current Medications Acetaminophen (Tylenol) 650 mg RECTAL Q4H PRN PRN PRN Reason: Pain Score 1-10/Temp > 100.7 F Albuterol Sulfate (Ventolin Aerosols) 2.5 mg INHALATION Q2H PRN PRN PRN Reason: Dyspnea, wheezing Last Admin: 02/06/20 14:18 Dose: 2.5 mg Documented by: Budesonide (Pulmicort Aerosol) 0.5 mg INHALATION TID COUNT INCLUDES THE [facility] Last Admin: 02/07/20 07:54 Dose: 0.5 mg Documented by: Dextrose (D50w Syringe) 0 gm IV X1 PRN; Protocol PRN Reason: Hypoglycemia Diphenhydramine HCl (Benadryl) 25 mg PO Q6H PRN PRN PRN Reason: ITCHING Last Admin: 02/07/20 05:26 Dose: 25 mg Documented by: Glucagon () 1 mg IM .X1 PRN PRN Reason: Hypoglycemia Heparin Sodium (Porcine) (Heparin Na) 5,000 unit SC Q12 COUNT INCLUDES THE [facility] Last Admin: 02/07/20 08:12 Dose: Not Given Documented by: Hydralazine HCl (Apresoline Iv) 10 mg IV Q4H PRN PRN PRN Reason: SBP > 160 Hydromorphone HCl (Dilaudid Inj) 0.5 mg IV Q3H PRN PRN PRN Reason: Pain Score 6-10/10 Hydroxyzine Pamoate (Vistaril Pamoate Capsule) 25 mg PO 4X/DAY PRN PRN PRN Reason: pruritits Sodium Chloride () 1,000 mls @ 100 mls/hr IV .Q10H COUNT INCLUDES THE [facility] Last Infusion: 02/07/20 08:12 Dose: Infused Documented by: Pantoprazole Sodium 40 mg/ (Sodium Chloride) 110 mls @ 330 mls/hr IV Q12 COUNT INCLUDES THE [facility] Last Admin: 02/07/20 08:13 Dose: Not Given Documented by: Sodium Chloride () 250 mls @ 15 mls/hr IV .[id number] PRN PRN Reason: Saline Flush Sodium Chloride () 250 mls @ 15 mls/hr IV .[id number] PRN PRN Reason: Additional IVPB Infusion Metoprolol Tartrate (Lopressor (Beta Kadi)) 5 mg IV Q8 COUNT INCLUDES THE [facility] Last Admin: 02/07/20 05:27 Dose: Not Given Documented by: Nitroglycerin (Nitrostat) 0.4 mg SUBLINGUAL Q5M PRN PRN Reason: CARDIAC/CHEST PAIN Ondansetron HCl (Zofran) 4 mg IV Q8H PRN PRN PRN Reason: NAUSEA/VOMITING Prochlorperazine Edisylate (Compazine Iv) 5 mg IV Q4H PRN PRN PRN Reason: Breakthrough nausea/vomiting Sodium Chloride () 10 - 40 ml IV UD PRN PRN Reason: SALINE FLUSH Last Admin: 02/06/20 13:26 Dose: 10 ml Documented by: Assessment/Plan All Active Problems (Last Reviewed 01/03/20 @ 14:[address] Chris Stark, DO) Pneumonia (Acute) SBO (small bowel obstruction) (Acute) ESRD (end stage renal disease) on dialysis (Acute) s/p fistulogram (Resolved ~09/28/18) history of surgically created arteriovenous fistula (Resolved) Stented coronary artery (Resolved) S/P CABG x 3 (Resolved 01/26/11) Status post peripheral artery angioplasty with insertion of stent (Resolved ~2010) End-stage renal disease. Seen on dialysis today. He is about 3 kg above his dry weight. I asked him to increase his dry weight to 63 kg for now due to surgery service recommendations. If he has any shortness of breath we'll have to push this down again. Dyspnea. Due to pleural effusions, congestive heart failure. No recent hospital admissions. Anemia. Due to ESRD, GI bleed. Has been getting IV iron and erythropoietin as outpatient. Discussed with primary service. Okay to discharge today.
--- NOTE | 2020-02-07 12:17 | DIALYSIS ---
HD x 3 hrs on 2k bath UF -1800ml tolerated tx well. stasis at [facility] dsg at sites. Pt stable post tx report to Latasha ANDRADE
== END 2020-02-07 13:11 | disposition home or self-care (01) ==
LOC: ED 10:55 → MS3 13:46
PROVIDERS: Admitting Provider Family Medicine; Emergency Provider Emergency Medicine; PCP Nurse Practitioner Family; Visit Provider Family Medicine
DX: K56.609 Unspecified intestinal obstruction, unspecified as to partial versus complete obstruction (principal); I25.10 Atherosclerotic heart disease of native coronary artery without angina pectoris; K21.9 Gastro-esophageal reflux disease without esophagitis; G47.33 Obstructive sleep apnea (adult) (pediatric); N40.0 Benign prostatic hyperplasia without lower urinary tract symptoms; I73.9 Peripheral vascular disease, unspecified; I13.2 Hypertensive heart and chronic kidney disease with heart failure and with stage 5 chronic kidney disease, or end stage renal disease; N18.6 End stage renal disease; J44.9 Chronic obstructive pulmonary disease, unspecified; I48.20 Chronic atrial fibrillation, unspecified; D50.9 Iron deficiency anemia, unspecified; D63.8 Anemia in other chronic diseases classified elsewhere; E78.5 Hyperlipidemia, unspecified; I50.32 Chronic diastolic (congestive) heart failure; I25.2 Old myocardial infarction; Z95.1 Presence of aortocoronary bypass graft; Z93.3 Colostomy status; Z79.899 Other long term (current) drug therapy; Z87.891 Personal history of nicotine dependence; Z99.2 Dependence on renal dialysis; E87.1 Hypo-osmolality and hyponatremia
CPT/HCPCS: 36415; 74018; 74176; 80048; 80053; 83605; 83690; 85025; 94640; 96361; 96365; 96366; 96375; 96376; 99218; 99251; 99285; 99406; J7030; A4216; G0378; G0463; J2405

== ENCOUNTER 2020-02-25 15:22 | Emergency (ER) | payer MEDICARE, SELFPAY ==
[2020-02-06 12:59] VITALS: BMI 23.2
[2020-02-25 15:23] VITALS: BP 163/130; PULSE 92; RESP 20; TEMP 37.2; O2SAT 99; BMI 24.1
--- NOTE | 2020-02-25 16:21 | ED.VIS.GEN ---
History of Present Illness Chief Complaint: General Illness Informant: Patient Onset: Yesterday Context: Gradual Onset Timing: Continuous Narrative: Patient is a 69-year-old male with extensive medical history including COPD, end-stage renal disease, peripheral vascular disease, hypertension and hyperlipidemia presenting with 2 days of shaking chills. He also notes he has had almost a month of diffuse itching. Patient denies any other systemic symptoms such as fevers, cough, chest pain, nausea, vomiting, abdominal pain, change in his ostomy output or rash. He states he tried taking Benadryl with no relief of the itching. He was recently started on Lyrica by his PCP who thought it might help with itching as well. Patient stopped taking it when he developed shaking chills. He denies any other complaints at this time. He did have a full session of hemodialysis today. Past Medical History - Allergies and Home Meds Allergies/Adverse Reactions: Allergies irbesartan [From Avapro] Allergy (Severe, Verified 02/06/20 09:05) Blisters zolpidem [From Ambien] Adverse Reaction (Severe, Verified 02/06/20 09:05) made me go crazy, memory loss amoxicillin Adverse Reaction (Intermediate, Verified 02/06/20 09:05) PASSES BLOOD IN STOOL TOLERATES ZOSYN PASSES BLOOD IN STOOL metronidazole [From Flagyl] Adverse Reaction (Verified 02/06/20 09:05) pt states he got palpitations and nose bleed. pt states he got palpitations and nose bleed. Primary Care Physician: Tania Berger NP-C [Primary Care Provider] - Past Medical History: - - BPH, COPD, diastolic heart failure, end-stage renal disease, hyperlipidemia, hypertension, peripheral artery disease, coronary artery disease Surgical History: coronary bypass surgery, tonsillectomy, - - CABG x3, multiple PCI coronary arteries, right common iliac angioplasty and stenting, aVF, tonsillectomy, multiple endoscopies with intervention. Smoking Status: Former smoker - Family History Maternal Family History: Family History (Last Reviewed 01/03/20 @ 14:[address] Chris Stark DO) Father CAD (coronary artery disease) Hypertension Kidney disease CVA (cerebral vascular accident) Other Cancer Family History: Reports: Heart Disease Paternal Family History: Family History (Last Reviewed 01/03/20 @ 14:[address] Chris Stark, DO) Father CAD (coronary artery disease) Hypertension Kidney disease CVA (cerebral vascular accident) Other Cancer Family History: Reports: Heart Disease, Hypertension, Renal Disease Review of Systems General: Reports: Chills. Denies: Fever, Sweats Eyes: Denies: Visual changes - bilaterally, Diplopia ENT: Denies: Rhinorrhea, Sore throat Cardiovascular: Denies: Chest pain, Palpitations Respiratory: Denies: Dyspnea, Cough, Dyspnea on exertion Gastrointestinal: Denies: Abdominal pain, Nausea, Vomiting, Diarrhea, Melena, Hematochezia Genitourinary: Denies: Dysuria, Hematuria, Frequency Musculoskeletal: Denies: Back pain, Extremity Pain Skin: Reports: - - Itching. Denies: Rash, Wounds Neurological: Denies: Headache, Weakness, Numbness Physical Exam Vital Signs/Narrative: Vital Signs Temp Pulse Resp BP Pulse Ox 02/25/20 15:23 99 F 92 20 H 163/130 H 99 Inital Vital Signs reviewed: Yes General: Well nourished, Well developed, No Acute Distress Head: Normocephalic, Atraumatic Eyes: Perrl, EOMI ENT: Moist mucous membranes, No rhinorrhea Neck: Supple, Nontender, No JVD Cardiovascular: Regular rate, Regular rhythm, No murmurs Respiratory: No distress, Chest nontender, Wheezing - Mild end expiratory wheezing bilaterally Abdomen: Soft, Nontender, Nondistended, Normal bowel sounds Back: Nontender, Normal Inspection Extremities: Nontender, No edema, - - AV fistula in the left upper extremity with palpable thrill. Patient does have an area of nonpulsatile soft tissue swelling just proximal to the fistula. Patient states that is from infiltration during dialysis. Skin: Normal color, - - Multiple excoriations on the body from itching, ulceration over patient's fistula from self-inflicted itching. Negative for: Jaundice Neurological: Alert, Oriented x3, Cranial nerves II-XII grossly intact, Normal Strength, Normal Sensation Psychological: Normal affect, Normal Mood Diagnostic/Tx/Re-eval Chest X-Ray - ED: Read by ED Physician, Read by Radiologist, Right Infiltrate Clinical Impression(s) from Imaging Studies Chest X-Ray 02/25/20 17:21 IMPRESSION: Right lower lobe infiltrate with associated loculated effusion. Follow-up recommended to assure resolution Electronically Signed: Pradeep Marquez MD at 17:38 EDT , Service support , Laboratory Data 02/25/20 02/25/20 17:05 17:05 WBC 11.2 H RBC 2.30 L Hgb 7.5 L Hct 23.6 L MCV 102.6 H MCH 32.6 H MCHC 31.8 L RDW Std Deviation 71.7 H RDW Coeff of Eleni 19.0 H Plt Count 203 MPV 9.6 Immature Gran % (Auto) 0.500 Neut % (Auto) 68.2 Lymph % (Auto) 9.4 L [place] % (Auto) 8.6 Eos % (Auto) 12.9 H Baso % (Auto) 0.4 Absolute Neuts (auto) 7.6 Absolute Lymphs (auto) 1.05 Nucleated RBC % 0 Platelet Estimate ADEQUATE RBC Morphology N CHROM Anisocytosis 2+ Sodium 136 Potassium 3.7 Chloride 94 L Carbon Dioxide 32.0 Anion Gap 10 BUN 39 H Creatinine 5.69 H Estim Creat Clear Calc 10.81 Est GFR (MDRD) Af Amer 13 L Est GFR (MDRD) Non-Af 11 L BUN/Creatinine Ratio 6.9 L Glucose 95 Calcium 9.1 Total Bilirubin 0.50 Direct Bilirubin 0.22 AST 35 ALT 37 Alkaline Phosphatase 147 H Total Protein 7.7 Albumin 2.9 L Globulin 4.8 H - Medical Decision Making Is evaluated for tremor, shaking as well as 1 month of itching. He appears nontoxic in no acute distress. Patient symptoms are not consistent with Reiger's. He is afebrile the emergency room. His white count was mildly elevated 11.2 with a section appears to be below his baseline. He is anemic at 7.5 but this is at his baseline. Patient states he does not get transfused until his hemoglobin drops below 7. Patient does have an elevated creatinine consistent with end-stage kidney disease. He does not have any significant electrolyte abnormalities. He is not hyperkalemic. Patient is given a dose of IV Ativan which did seem to help his symptoms. Patient does go on to state that he recently started using albuterol again and that is when his shaking started. Is possible this could be a side effect of the albuterol. Patient is given a DuoNeb in the emergency room per his request as he says he is due for it. He does have some slight wheezing. On reevaluation he is breathing much easier. His chest x-ray shows right lower lobe infiltrate with associated loculated effusions. I agree that patient has a pleural effusion but I am not convinced he has an infiltrate. He does not have any worsening respiratory symptoms and his chest x-ray does not look significantly different than it did in December. Case is discussed with his primary care provider who is agreeable with withholding antibiotics at this time. Blood cultures are pending at this time. Should they come back positive patient will be contacted. His PCP will continue to monitor him. Patient might require another thoracentesis but does not need to be done emergently. Patient is counseled on signs and symptoms requiring return to the emergency room. Patient verbalizes agreement and understand this plan. Patient discharged home in stable and improved condition. ED Disposition - Plan for ED Patient: Disposition: Home or Assisted Living Diagnosis: Tremor, Itching, Recurrent right pleural effusion Prescriptions: Ipratropium [Atrovent Aerosols] 0.5 mg INHALATION 4X/DAY PRN #1 box PRN Reason: Sob &/Or Wheezing Prescription Printed Referrals: Tania Berger NP-C [Primary Care Provider] - Additional Instructions: The exact cause of your symptoms is not clear. You do not have any obvious laboratory abnormalities or infection to explain your symptoms. Blood cultures are pending and you will be contacted if they come back positive. It is possible the shaking and tremor you have could be a side effect of the albuterol you recently started using again. I will switch you to ipratropium which you should tolerate better. Please make sure you follow-up with your primary care doctor later this week. Your hemoglobin today is 7.5.
[2020-02-25] MEDS: LORazepam 2 MG/ML Syringe 0.5 MG IV (17:11)
--- NOTE | 2020-02-25 17:21 | RAD_ITS ---
STUDY: X-RAY CHEST REASON FOR EXAM: Male, 69 years old. Cough and shortness of breath TECHNIQUE: PA and lateral views of the chest. COMPARISON: 01/03/2020 FINDINGS: EKG leads overlie the chest Left lung is expanded and free of superimposed process. There is airspace opacification in the right lung base with a persistent right pleural effusion. Findings suggest likely infiltrate and loculated effusion. Sternal cerclage wires and vascular clips are present from a prior sternotomy and coronary artery bypass graft procedure (CABG). Normal mediastinum and justyn. Normal visualized pulmonary arteries. There is atherosclerotic calcification of the aortic arch with tortuosity. There are diffuse degenerative changes of the visualized thoracic spine. There is degenerative osteoarthritis of the bilateral shoulders. There is no demonstrated abnormality of the visualized soft tissue structures of the upper abdomen. RAD/Chest PA and Lateral IMPRESSION: Right lower lobe infiltrate with associated loculated effusion. Follow-up recommended to assure resolution Electronically Signed: Pradeep Marquez MD at 17:38 EDT , Service support ,
[2020-02-25 17:31] LABS: Absolute Lymphocyte Count 1.05 X10^3/uL (0.83-4.51); Absolute Neutrophil Count 7.6 X10^3/uL (2.0-7.7); Basophil# 0.04 X10^3/uL; Basophil% 0.4 % (0-1); Eosinophil# 1.44 X10^3/uL; Eosinophils% 12.9 % (0-5); Hematocrit 23.6 % (40-54); Hemoglobin 7.5 g/dL (13.0-16.5); Lymphocyte # 1.05 X10^3/ul (4.0); Lymphocyte % 9.4 % (19-41); Mean Corp Hgb Conc 31.8 g/dL (32-36); Mean Corpuscular Hgb 32.6 pg (27.0-32.0); Mean Corpuscular Volume 102.6 fL (80-94); Mean Platelet Vol. 9.6 fl (6.2-12.0); Monocyte# 0.96 X10^3/uL; Monocyte% 8.6 % (0-10); NRBC Flagged by Analyzer 0 % (0-5); Neutrophil # 7.62 X10^3/uL (2.7-7.7); Neutrophil % 68.2 % (47-70); POSITIVE MORPHOLOGY YES; Platelet Count 203 K/mm3 (150-450); RBC Distribution Width SD 71.7 fl (35.1-43.9); White Blood Count 11.2 K/mm3 (4.4-11.0)
[2020-02-25 17:37] LABS: Differential Indicated SCAN CRITERIA MET
[2020-02-25 17:45] LABS: AST(SGOT) 35 U/L (15-37); Alanine Aminotransfer ALT/SGPT 37 U/L (16-61); Albumin, Serum 2.9 g/dL (3.2-5.0); Alkaline Phosphatase 147 U/L (45-117); Anion Gap 10 (5-15); BUN 39 mg/dL (7-18); BUN/Creat Ratio 6.9 RATIO (10-20); Bilirubin, Direct 0.22 mg/dL (0.00-0.30); Calcium,Total 9.1 mg/dL (8.5-10.1); Chloride 94 mmol/L (98-107); Creatinine, Serum 5.69 mg/dL (0.70-1.30); EST Glomerular Filtration Rate 11 mL/min (>60); Est Glom Filt Rate - Afr Amer 13 mL/min (>60); Estimated Creatinine Clearance 10.81 ml/min; Globulin 4.8 g/dL (2.2-4.2); Glucose 95 mg/dL (74-106); Potassium 3.7 mmol/L (3.5-5.1); Protein, Total 7.7 g/dL (6.4-8.2); Sodium Level 136 mmol/L (136-145)
[2020-02-25 18:11] LABS: Anisocytosis 2+; Platelet Estimate ADEQUATE (ADEQ); Red Cell Morphology N CHROM NORMAL (NORM C&C)
[2020-02-25 19:21] VITALS: PULSE 104; RESP 22; TEMP 37.3; O2SAT 100
[2020-02-25 19:50] VITALS: BP 164/51; PULSE 109; RESP 16; O2SAT 98
[2020-02-25 19:58] VITALS: PULSE 104; RESP 29; O2SAT 97
[2020-02-25] MEDS: Ipratropium/Albuterol Sulfate 3 ML AMPUL.NEB INHALATION (19:58)
[2020-02-25 22:08] VITALS: BP 144/71; PULSE 100; RESP 21; O2SAT 99
== END 2020-02-25 22:09 | disposition home or self-care (01) ==
PROVIDERS: Emergency Provider Emergency Medicine; PCP Nurse Practitioner Family
DX: R25.1 Tremor, unspecified (principal); L29.9 Pruritus, unspecified; J90 Pleural effusion, not elsewhere classified; J44.9 Chronic obstructive pulmonary disease, unspecified; N40.0 Benign prostatic hyperplasia without lower urinary tract symptoms; I25.10 Atherosclerotic heart disease of native coronary artery without angina pectoris; I13.2 Hypertensive heart and chronic kidney disease with heart failure and with stage 5 chronic kidney disease, or end stage renal disease; I50.32 Chronic diastolic (congestive) heart failure; N18.6 End stage renal disease; Z99.2 Dependence on renal dialysis; I73.9 Peripheral vascular disease, unspecified; E78.5 Hyperlipidemia, unspecified; Z95.1 Presence of aortocoronary bypass graft; Z79.899 Other long term (current) drug therapy; Z87.891 Personal history of nicotine dependence
CPT/HCPCS: 71046; 80048; 80076; 85025; 87040; 94640; 96374; 99282; A4216

== ENCOUNTER → 2020-03-03 11:44 | Outpatient (CLI) | payer MEDICARE, SELFPAY ==
[2020-02-25 15:23] VITALS: BMI 24.1
[2020-03-03 11:51] VITALS: BP 131/54; PULSE 74; RESP 18; TEMP 36.6; O2SAT 96; BMI 23.1
[2020-03-03 12:32] VITALS: BP 130/48; PULSE 71; RESP 16; TEMP 36.2; O2SAT 100
[2020-03-03 13:32] VITALS: BP 129/59; PULSE 76; RESP 16; TEMP 36.6
[2020-03-03 14:48] VITALS: BP 128/50; PULSE 79; RESP 16; TEMP 36.6; O2SAT 99
== END ==
PROVIDERS: PCP Nurse Practitioner Family; Referring Provider Internal Medicine Nephrology; Visit Provider Internal Medicine Nephrology
DX: N18.6 End stage renal disease (principal); D64.9 Anemia, unspecified
CPT/HCPCS: 36430; 86850; 86900; 86901; 86920; 86922; J7040; P9016; A4216

== ENCOUNTER → 2020-03-04 14:49 | Outpatient (CLI) | payer MEDICARE, SELFPAY ==
[2020-03-03 11:51] VITALS: BMI 23.1
[2020-03-04 15:09] VITALS: BP 153/43; PULSE 83; RESP 16; TEMP 36.6; O2SAT 100; BMI 22.8
[2020-03-04 15:30] VITALS: BP 148/44; PULSE 81; RESP 18; TEMP 36.5; O2SAT 100
[2020-03-04 16:30] VITALS: BP 124/30; PULSE 76; RESP 18; TEMP 36.6
[2020-03-04 17:42] VITALS: BP 124/30; PULSE 76; RESP 16; TEMP 36.7
== END ==
PROVIDERS: PCP Nurse Practitioner Family; Referring Provider Internal Medicine Nephrology; Visit Provider Internal Medicine Nephrology
DX: D64.9 Anemia, unspecified (principal)
CPT/HCPCS: 36430; 86850; 86900; 86901; 86920; 86922; P9016

== ENCOUNTER → 2020-03-06 13:45 | Outpatient (CLI) | payer MEDICARE, SELFPAY ==
[2020-03-03 11:51] VITALS: BMI 23.1
[2020-03-04 15:09] VITALS: BMI 22.8
--- NOTE | 2020-03-06 13:46 | US_ITS ---
PROCEDURE: ULTRASOUND GUIDED THORACENTESIS - RIGHT CLINICAL HISTORY: Male, 69 years old. Right pleural effusion CONSENT: The risks, benefits and alternatives to the procedure were explained to the patient, and the patient agreed to the procedure and signed the consent. STERILE BARRIER TECHNIQUE: The following sterile barrier precautions were used during the procedure: hand hygiene; use of 2% chlorhexidine aseptic; use of a cap, mask, sterile gown, sterile gloves, sterile full body drape, and a large sterile sheet. SEDATION: Local anesthesia TECHNIQUE: Under the ultrasound guidance using all elements of maximum sterile technique and after infiltration of the skin and subcutaneous soft tissues with 10 mL of lidocaine 1% a 5 Slovenian drainage catheter is introduced in the lower part of the right hemithorax. 1250 mL of fluid were removed sample sent to lab for evaluation. The patient tolerated the procedure there was no immediate complication. US/Thoracentesis W US IMPRESSION: Successful ultrasound-guided thoracentesis. Electronically Signed: Rachelle Serrano, at 15:28 EDT Tel , Service support ,
[2020-03-06 14:34] VITALS: BP 116/39; BP 118/49; BP 124/43; BP 129/52; BP 97/46; PULSE 75; PULSE 77; PULSE 78; PULSE 81; PULSE 84; RESP 16; RESP 18; O2SAT 100
--- NOTE | 2020-03-06 14:55 | RAD_ITS ---
STUDY: X-RAY CHEST REASON FOR EXAM: Male, 69 years old. POST THORA -- PT STATES RIGHT LATERAL CHEST HURTS TECHNIQUE: Single AP portable view of the chest. COMPARISON: Feb 25 2020 5:25pm FINDINGS: Subsegmental atelectasis is identified in the right and left lung bases. There is marked decrease in size of a right pleural effusion. Sternal cerclage wires and vascular clips are present from a prior sternotomy and coronary artery bypass graft procedure (CABG). Normal mediastinum and justyn. Normal visualized pulmonary arteries. There is atherosclerotic calcification of the aortic arch with tortuosity. Normal visualized thoracic spine. There is degenerative osteoarthritis of the bilateral shoulders. There is no demonstrated abnormality of the visualized soft tissue structures of the upper abdomen. RAD/Chest Insp/Exp 2 View IMPRESSION: There is marked decrease in size of a right pleural effusion. Electronically Signed: Rachelle Serrano, at 15:33 EDT Tel , Service support ,
== END ==
PROVIDERS: PCP Nurse Practitioner Family; Referring Provider Internal Medicine Critical Care Medicine; Visit Provider Internal Medicine Critical Care Medicine
DX: J94.8 Other specified pleural conditions (principal)
CPT/HCPCS: 32555; 71046

== ENCOUNTER 2020-03-13 13:08 | Emergency (ER) | payer MEDICARE, SELFPAY ==
[2020-03-04 15:09] VITALS: BMI 22.8
[2020-03-13 13:09] VITALS: BP 150/102; PULSE 84; RESP 22; TEMP 36.5; O2SAT 100; BMI 22.7
--- NOTE | 2020-03-13 13:31 | EKG12_ITS ---
Test Reason : Blood Pressure : / mmHG Vent. Rate : 082 BPM Atrial Rate : 082 BPM P-R Int : 304 ms QRS Dur : 086 ms QT Int : 406 ms P-R-T Axes : 000 061 126 degrees QTc Int : 474 ms Sinus rhythm with 1st degree A-V block Left ventricular hypertrophy with repolarization abnormality Abnormal ECG Confirmed by SID REAGAN [id number]), legal editor SHIRA HURD ([id number]) on 03/17/2020 11:28:08 AM Referred By: CRISTAL Confirmed By:SID REAGAN
[2020-03-13 14:00] LABS: Absolute Lymphocyte Count 0.77 X10^3/uL (0.83-4.51); Absolute Neutrophil Count 5.9 X10^3/uL (2.0-7.7); Basophil# 0.04 X10^3/uL; Basophil% 0.5 % (0-1); Eosinophils% 5.1 % (0-5); Hematocrit 30.3 % (40-54); Hemoglobin 9.6 g/dL (13.0-16.5); Lymphocyte # 0.77 X10^3/ul (4.0); Lymphocyte % 9.8 % (19-41); Mean Corp Hgb Conc 31.7 g/dL (32-36); Mean Corpuscular Hgb 31.8 pg (27.0-32.0); Mean Corpuscular Volume 100.3 fL (80-94); Mean Platelet Vol. 9.8 fl (6.2-12.0); Monocyte% 8.9 % (0-10); NRBC Flagged by Analyzer 0 % (0-5); Neutrophil # 5.94 X10^3/uL (2.7-7.7); Neutrophil % 75.3 % (47-70); POSITIVE MORPHOLOGY YES; Platelet Count 241 K/mm3 (150-450); RBC Distribution Width CV 18.7 % (11.6-14.6); RBC Distribution Width SD 68.9 fl (35.1-43.9); Red Blood Count 3.02 M/mm3 (4.6-6.2); White Blood Count 7.9 K/mm3 (4.4-11.0)
[2020-03-13] MEDS: Ipratropium/Albuterol Sulfate 3 ML AMPUL.NEB INHALATION (14:08)
[2020-03-13 14:09] VITALS: PULSE 90; RESP 18
--- NOTE | 2020-03-13 14:11 | RAD_ITS ---
STUDY: X-RAY CHEST REASON FOR EXAM: Male, 69 years old. SOB, BLEEDING IN COLOSTOMY -- COPD, EMPHYSEMA TECHNIQUE: Single AP portable view of the chest. COMPARISON: Comparison is made with prior examination dated March 06, 2020. FINDINGS: EKG electrodes are seen. Since prior examination, there is been mild progression of the right pleural effusion with the right basilar atelectasis. Stable blunting of the left costal phrenic angle. Sternal cerclage wires and vascular clips are present from a prior sternotomy and coronary artery bypass graft procedure (CABG). Normal mediastinum and justyn. Normal visualized pulmonary arteries. There is atherosclerotic calcification of the aortic arch with tortuosity. There are diffuse degenerative changes of the visualized thoracic spine. Normal visualized ribs, clavicles, and shoulders. There is no demonstrated abnormality of the visualized soft tissue structures of the upper abdomen. RAD/Chest 1 View (Portable) IMPRESSION: Small right pleural effusion with bibasilar atelectasis slightly worse on the right side. Blunting of the left costophrenic angle. Electronically Signed: Deven Hensley, at 14:32 EDT , Service support ,
[2020-03-13] MEDS: LORazepam 2 MG/ML Syringe 1 MG IV (14:13)
[2020-03-13] MEDS: hydrOXYzine 10 MG Tablet PO (14:13)
[2020-03-13 14:15] LABS: Differential Indicated SCAN CRITERIA MET
[2020-03-13 14:19] LABS: Anion Gap 13 (5-15); BUN 68 mg/dL (7-18); BUN/Creat Ratio 8.4 RATIO (10-20); Calcium,Total 9.3 mg/dL (8.5-10.1); Chloride 99 mmol/L (98-107); Creatinine, Serum 8.13 mg/dL (0.70-1.30); EST Glomerular Filtration Rate 7 mL/min (>60); Est Glom Filt Rate - Afr Amer 9 mL/min (>60); Estimated Creatinine Clearance 7.85 ml/min; Glucose 94 mg/dL (74-106); Sodium Level 134 mmol/L (136-145)
[2020-03-13 14:20] VITALS: O2SAT 100
[2020-03-13 14:35] LABS: Anisocytosis 2+
--- NOTE | 2020-03-13 15:08 | ED.DCSUM_ITS ---
- ER Visit Summary Date of Service: 03/13/20 Chief Complaint: [Shortness of breath ] History of Present Illness: The patient is a 69 M [presents with shortness of breath x2 days. Patient states he smoked a cigarette and started feeling poorly. Patient became very anxious because he has been having some blood in his colostomy bag that was bright red a couple of days ago and then turned black. He denies vomiting blood. Patient states that he has had intermittent bleeding from his bowels for years. He is not currently anticoagulated. He denies any abdominal pain. He denies any chest pain. Patient has multiple medical issues including coronary artery disease, CHF, COPD, hypertension, end- stage renal disease, history of A. fib, peripheral artery disease, BPH, and anemia. Patient states he had a blood transfusion several weeks ago. Patient has had a partial colectomy for history of ischemic colitis.] Patient had recent thoracentesis from the right lung for pleural effusion. Patient had dialysis yesterday. Physical Examination: [HEENT-PERRLA, EOMI. Cranial nerves II through XII grossly intact. TMs clear. Mucous membranes moist. No adenopathy. Cardiovascular-regular rate and rhythm without murmur or ectopy Lungs-clear to auscultation, chest wall stable without crepitus or subcu emphysema Abdomen-normoactive bowel sounds, soft, nontender, no rebound or rigidity, no peritoneal signs. Patient has a colostomy in the right lower quadrant that has dark watery stool in it. Extremities-intact ?4, normal range of motion, normal pulses, atraumatic] Test Results: [CBC with differential obtained showed a white count of 7.9, hemoglobin 9.6, hematocrit 30, platelet 241. Chemistries unremarkable. BUN was 68 and creatinine 8.13. Troponin was 0.027. Hemoccult was positive. Chest x- ray obtained showed small right pleural effusion otherwise nothing acute.] Emergency Department Course and Treatment: [Patient had an IV line established on arrival. Patient was given a DuoNeb aerosol and given a milligram of Ativan for anxiety. Patient was given 10 mg of Atarax for itching.] Treatment Plan: [Discussed results with patient's and options for admission versus outpatient follow-up. Patient states tomorrow is his 48th anniversary and would prefer not to be admitted. He has had intermittent issues with bleeding from his colostomy. Patient is orthostatic negative and not anticoagulated therefore I feel he can be discharged to home with close follow- up. He has seen Dr. Armen Henderson in the past who performed his partial colectomy and he is advised to follow-up with him within next 2 to 3 days. Advised to return if bright red blood from his colostomy bag or increasing shortness of breath, or condition should worsen anyway.] Disposition: [Discharged home in stable condition] Impression: [Dyspnea GI bleed-stable Anemia-chronic End-stage renal disease on dialysis ] This note was generated with [employer] dictation software. It may contain incorrect words, spelling, and punctuation that were not noted in review of the chart prior to signing ED Disposition - Plan for ED Patient: Referrals: Tania Berger, [employer]PERATOR-C [Primary Care Provider] -
--- NOTE | 2020-03-13 15:13 | ED.DEP ---
ED Disposition - Plan for ED Patient: Instructions: ED Dyspnea, ED Bleed UGI Stable, ED Hematochezia Stable, Care for COPD Referrals: Tania Berger NP-C [Primary Care Provider] - Armen Henderson MD [STAFF PHYSICIAN] - 3-5 Days
[2020-03-13 15:17] VITALS: BP 140/52; BP 146/48; BP 160/57; PULSE 92; PULSE 93; PULSE 94
[2020-03-13 15:27] VITALS: BP 153/67; PULSE 94; RESP 26; O2SAT 96
== END 2020-03-13 15:37 | disposition home or self-care (01) ==
PROVIDERS: Emergency Provider Emergency Medicine; PCP Nurse Practitioner Family
DX: R06.00 Dyspnea, unspecified (principal); K92.2 Gastrointestinal hemorrhage, unspecified; I13.2 Hypertensive heart and chronic kidney disease with heart failure and with stage 5 chronic kidney disease, or end stage renal disease; N18.6 End stage renal disease; I50.9 Heart failure, unspecified; Z99.2 Dependence on renal dialysis; D50.0 Iron deficiency anemia secondary to blood loss (chronic); J44.1 Chronic obstructive pulmonary disease with (acute) exacerbation; J90 Pleural effusion, not elsewhere classified; I25.10 Atherosclerotic heart disease of native coronary artery without angina pectoris; I48.91 Unspecified atrial fibrillation; I73.9 Peripheral vascular disease, unspecified; N40.0 Benign prostatic hyperplasia without lower urinary tract symptoms; Z93.3 Colostomy status; Z87.19 Personal history of other diseases of the digestive system; Z90.49 Acquired absence of other specified parts of digestive tract; Z79.899 Other long term (current) drug therapy; F17.210 Nicotine dependence, cigarettes, uncomplicated
CPT/HCPCS: 71045; 80048; 82274; 84484; 85025; 86850; 86900; 86901; 93005; 94640; 96374; 99285; A4216

== ENCOUNTER → 2020-06-02 13:36 | Outpatient (CLI) | payer MEDICARE, SELFPAY ==
[2020-04-02 06:10] VITALS: BMI 22.6
--- NOTE | 2020-06-02 13:40 | RAD_ITS ---
STUDY: X-RAY CHEST REASON FOR EXAM: Male, 69 years old. pt states doctor wants to check pleural status, fluid was drained 3 months ago, pt takes HBP medication TECHNIQUE: PA and lateral views of the chest. COMPARISON: 03/13/2020 FINDINGS: Lungs are mildly hyperexpanded with superimposed interstitial edema and bilateral pleural effusions suggesting CHF both have worsened since the previous study.. Sternal cerclage wires and vascular clips are present from a prior sternotomy and coronary artery bypass graft procedure (CABG). Normal mediastinum and justyn. Normal visualized pulmonary arteries. There is atherosclerotic calcification of the aortic arch with tortuosity. There are diffuse degenerative changes of the visualized thoracic spine. Normal visualized ribs, clavicles, and shoulders. There is no demonstrated abnormality of the visualized soft tissue structures of the upper abdomen. RAD/Chest PA and Lateral IMPRESSION: Bibasilar interstitial edema with bilateral pleural effusions consistent with CHF. Follow-up recommended to assure resolution. The interstitial edema and effusions have worsened since the previous study Electronically Signed: Pradeep Marquez MD at 14:31 EDT , Service support ,
== END ==
PROVIDERS: PCP Nurse Practitioner Family; Referring Provider Internal Medicine Critical Care Medicine; Visit Provider Internal Medicine Critical Care Medicine
DX: J94.8 Other specified pleural conditions (principal)
CPT/HCPCS: 71046

== ENCOUNTER → 2020-07-25 08:55 | Outpatient (CLI) | payer MEDICARE, SELFPAY ==
[2020-07-08 09:07] VITALS: BMI 24.1
--- NOTE | 2020-07-28 08:55 | PFT ---
INTRODUCTION: The patient is a 69-year-old male that presents for pulmonary function studies secondary to a diagnosis of COPD. Respiratory therapy reports good patient effort. Bronchodilators were used during testing. INTERPRETATION: Forced expiration spirometry demonstrates the presence of a moderately severe large airways obstructive ventilatory defect. There was a significant response to aerosolized bronchodilators noted. Spirograms are of good quality and do not plateau indicating slow emptying of the lungs. Body plethysmography was performed and revealed a decreased TLC to 3.79 L, 68% of predicted, indicative of a moderate restrictive ventilatory impairment. The remainder of the lung volumes are symmetrically reduced. Diffusing capacity by single breath CO is moderately reduced at 52% of predicted. IMPRESSION: Partially reversible moderately severe mixed ventilatory defect with symmetric reduction in diffusing capacity.
== END ==
PROVIDERS: PCP Nurse Practitioner Family; Referring Provider Nurse Practitioner Acute Care; Visit Provider Nurse Practitioner Acute Care
DX: J44.9 Chronic obstructive pulmonary disease, unspecified (principal)
CPT/HCPCS: 94060; 94726; 94729

== ENCOUNTER → 2020-08-07 08:48 | Outpatient (CLI) | payer MEDICARE, SELFPAY ==
[2020-07-08 09:07] VITALS: BMI 24.1
[2020-08-07] VITALS (7 sets, daily range): BP systolic 125–140; BP diastolic 40–51; PULSE 71–81; RESP 16–18; TEMP 35.8–36.6; O2SAT 100; BMI 24.2
[2020-08-07] MEDS: 0.9% NaCl Peripheral Flush Adult/Peds IV (09:39)
== END ==
PROVIDERS: PCP Nurse Practitioner Family; Referring Provider Internal Medicine Nephrology; Visit Provider Internal Medicine Nephrology
DX: D64.9 Anemia, unspecified (principal)
CPT/HCPCS: 36415; 36430; 86850; 86900; 86901; 86920; 86922; J7040; P9016; A4216

== ENCOUNTER → 2020-08-11 15:02 | Outpatient (CLI) | payer MEDICARE, SELFPAY ==
[2020-08-07 09:04] VITALS: BMI 24.2
--- NOTE | 2020-08-11 15:03 | RAD_ITS ---
HISTORY: EFFUSION, INCREASING SOB ADDITIONAL HISTORY: None provided. COMPARISON: 06/02/2020 EXAMINATION/TECHNIQUE: XR Chest 2 Views Number of images including paperwork: 2 FINDINGS: LUNGS AND PLEURA: Small to moderate sized bilateral pleural effusions with associated basilar opacities. Interstitial septal thickening. No pneumothorax. CARDIAC SILHOUETTE: Stable. MEDIASTINUM AND JULIANNA: Aortic calcification. UPPER ABDOMEN: Unremarkable. SKELETON AND SOFT TISSUES: No acute findings. Vascular calcifications. OTHER DEVICES AND HARDWARE: Vascular stent in the left subclavian region appears similar with some deformity of the distal aspect. Sternal wires. RAD/Chest PA and Lateral IMPRESSION: Bilateral pleural effusions with associated atelectasis versus infiltrates. Interstitial abnormality at the bases could be related to mild edema or chronic changes. at 0033 Reported and signed by: Carole Fisher MD Electronically Signed: Carole Fisher MD at 0:33 EDT Tel , Service support ,
== END ==
PROVIDERS: PCP Nurse Practitioner Family; Referring Provider Internal Medicine Critical Care Medicine; Visit Provider Internal Medicine Critical Care Medicine
DX: J94.8 Other specified pleural conditions (principal)
CPT/HCPCS: 71046

== ENCOUNTER → 2020-08-19 14:15 | Outpatient (CLI) | payer MEDICARE, SELFPAY ==
[2020-08-07 09:04] VITALS: BMI 24.2
--- NOTE | 2020-08-19 14:15 | US_ITS ---
PROCEDURE: ULTRASOUND GUIDED THORACENTESIS. DATE: 08/19/2020. INDICATION: Male, 69 years old. Left pleural effusion. PHYSICIAN: Deven Hensley M.D. PROCEDURE: The risks, benefits, and alternatives to the procedure were explained to the patient. The specific risks of bleeding, infection, and pneumothorax requiring chest tube insertion were discussed and accepted. Written informed consent was obtained. Ultrasonographic evaluation of the left lower pleural space was carried out. An adequate pocket was identified. The patient was placed in the sitting, upright position. The overlying skin was prepped and draped in sterile fashion. 1% lidocaine was administered subcutaneously for local anesthesia. Under ultrasound guidance, a 6 Filipino thoracentesis needle/catheter system was advanced into the left posterior lower pleural fluid collection. Approximately 650 mL of douglas-colored fluid fluid was drained. The catheter was removed, and a sterile dressing was applied. The patient tolerated the procedure well. A chest x-ray was ordered. US/Thoracentesis W US IMPRESSION: Ultrasound-guided left thoracentesis. Electronically Signed: Deven Hensley, at 15:45 EST , Service support ,
[2020-08-19 14:45] VITALS: BP 131/31; BP 132/47; BP 136/49; BP 148/52; PULSE 62; PULSE 64; PULSE 69; PULSE 70; RESP 16; O2SAT 100
--- NOTE | 2020-08-19 15:02 | RAD_ITS ---
PROCEDURE: ULTRASOUND GUIDED THORACENTESIS. DATE: 08/19/2020. INDICATION: Male, 69 years old. Left pleural effusion. PHYSICIAN: Deven Hensley M.D. PROCEDURE: The risks, benefits, and alternatives to the procedure were explained to the patient. The specific risks of bleeding, infection, and pneumothorax requiring chest tube insertion were discussed and accepted. Written informed consent was obtained. Ultrasonographic evaluation of the left lower pleural space was carried out. An adequate pocket was identified. The patient was placed in the sitting, upright position. The overlying skin was prepped and draped in sterile fashion. 1% lidocaine was administered subcutaneously for local anesthesia. Under ultrasound guidance, a 6 [place]uran thoracentesis needle/catheter system was advanced into the left posterior lower pleural fluid collection. Approximately 650 mL of douglas-colored fluid fluid was drained. The catheter was removed, and a sterile dressing was applied. The patient tolerated the procedure well. A chest x-ray was ordered. RAD/Chest Insp/Exp 2 View IMPRESSION: Ultrasound-guided left thoracentesis. Electronically Signed: Deven Hensley, at 15:45 EST , Service support ,
== END ==
PROVIDERS: PCP Nurse Practitioner Family; Referring Provider Internal Medicine Critical Care Medicine; Visit Provider Internal Medicine Critical Care Medicine
DX: J94.8 Other specified pleural conditions (principal)
CPT/HCPCS: 32555; 71046; 99155; 99156

== ENCOUNTER → 2020-09-22 12:19 | Outpatient (CLI) | payer MEDICARE, SELFPAY ==
[2020-08-07 09:04] VITALS: BMI 24.2
--- NOTE | 2020-09-22 12:21 | RAD_ITS ---
HISTORY: Recurrent pleural effusion. ADDITIONAL HISTORY: None provided. COMPARISON: 08/11/2020 EXAMINATION/TECHNIQUE: XR Chest 2 Views Number of images including paperwork: 2 FINDINGS: LUNGS AND PLEURA: Moderate sized left pleural effusion and small right pleural effusion. Mild interstitial septal thickening and bibasilar opacities. CARDIAC SILHOUETTE: Stable. MEDIASTINUM AND JULIANNA: Unchanged aortic calcification and tortuosity. UPPER ABDOMEN: Unremarkable. SKELETON AND SOFT TISSUES: No acute findings. OTHER DEVICES AND HARDWARE: Sternal wires and surgical clips. RAD/Chest PA and Lateral IMPRESSION: 1. Bilateral pleural effusions. 2. Minimal change in bilateral pulmonary opacities. at 0401 Reported and signed by: Carole Fisher MD Electronically Signed: Carole Fisher MD at 4:01 EST Tel , Service support ,
== END ==
PROVIDERS: PCP Nurse Practitioner Family; Referring Provider Nurse Practitioner Acute Care; Visit Provider Nurse Practitioner Acute Care
DX: J90 Pleural effusion, not elsewhere classified (principal)
CPT/HCPCS: 71046

== ENCOUNTER → 2020-09-24 14:29 | Outpatient (CLI) | payer MEDICARE, SELFPAY ==
[2020-08-07 09:04] VITALS: BMI 24.2
[2020-09-24 15:29] LABS: International Normalized Ratio 1.3; Partial Thromboplast Time 38.2 Seconds (24.1-36.2); Prothrombin Time (Protime)PT. 15.2 SECONDS (11.7-14.9)
== END ==
PROVIDERS: PCP Nurse Practitioner Family; Referring Provider Nurse Practitioner Acute Care; Visit Provider Nurse Practitioner Acute Care
DX: J90 Pleural effusion, not elsewhere classified (principal)
CPT/HCPCS: 36415; 85610; 85730

== ENCOUNTER → 2020-09-26 12:01 | Outpatient (CLI) | payer MEDICARE, SELFPAY ==
[2020-08-07 09:04] VITALS: BMI 24.2
--- NOTE | 2020-09-26 12:04 | US_ITS ---
PROCEDURE: ULTRASOUND GUIDED THORACENTESIS. DATE: 09/26/2020. INDICATION: Male, 69 years old. Left pleural effusion PHYSICIAN: Deven Hensley M.D. PROCEDURE: The risks, benefits, and alternatives to the procedure were explained to the patient. The specific risks of bleeding, infection, and pneumothorax requiring chest tube insertion were discussed and accepted. Written informed consent was obtained. Ultrasonographic evaluation of the left lower pleural space was carried out. An adequate pocket was identified. The patient was placed in the sitting, upright position. The overlying skin was prepped and draped in sterile fashion. 1% lidocaine was administered subcutaneously for local anesthesia. Under ultrasound guidance, a 5 Indonesian thoracentesis needle/catheter system was advanced into the left posterior lower pleural fluid collection. Approximately 1050 mL of douglas-colored fluid was drained. The catheter was removed, and a sterile dressing was applied. The patient tolerated the procedure well. A chest x-ray was ordered. US/Thoracentesis W US IMPRESSION: Ultrasound-guided left thoracentesis. Electronically Signed: Deven Hensley, at 13:05 EST , Service support ,
--- NOTE | 2020-09-26 12:47 | RAD_ITS ---
STUDY: X-RAY CHEST REASON FOR EXAM: Male, 69 years old. POST THORACENTESIS TECHNIQUE: AP inspiration expiration views. COMPARISON: Comparison is made with prior study dated 09/22/2020. FINDINGS: The patient is status post left thoracentesis. There is no evidence of pneumothorax. Mild residual small bilateral pleural effusions with bibasilar atelectasis and/or infiltration. Sternal cerclage wires and vascular clips are present from a prior sternotomy and coronary artery bypass graft procedure (CABG). Normal mediastinum and justyn. Normal visualized pulmonary arteries. There is atherosclerotic calcification of the aortic arch with tortuosity. RAD/Chest Insp/Exp 2 View IMPRESSION: Status post left thoracentesis. No evidence of pneumothorax. Electronically Signed: Deven Hensley, at 13:04 EST , Service support ,
[2020-09-26 12:55] VITALS: BP 141/64; BP 143/55; BP 143/57; BP 143/61; BP 144/53; PULSE 84; PULSE 87; PULSE 89; RESP 18; TEMP 36.6; O2SAT 100
== END ==
PROVIDERS: PCP Nurse Practitioner Family; Referring Provider Nurse Practitioner Acute Care; Visit Provider Nurse Practitioner Acute Care
DX: J90 Pleural effusion, not elsewhere classified (principal)
CPT/HCPCS: 32555; 71046

== ENCOUNTER 2020-10-01 11:17 | Inpatient (IN) | payer MEDICARE, SELFPAY ==
[2020-08-07 09:04] VITALS: BMI 24.2
[2020-10-01] VITALS (22 sets, daily range): BP systolic 103–161; BP diastolic 48–77; PULSE 77–92; RESP 12–25; TEMP 35.8–36.6; O2SAT 3–100; BMI 24.2; BMI 24.1
--- NOTE | 2020-10-01 11:44 | RAD_ITS ---
STUDY: X-RAY CHEST REASON FOR EXAM: Male, 69 years old. Dyspnea, diminished breath sounds left, rales right TECHNIQUE: Single AP portable view of the chest. COMPARISON: Comparison is made with prior study dated 09/26/2020. FINDINGS: EKG electrodes are seen. Bilateral pleural effusions left greater than right with bibasilar infiltration and/or atelectasis superimposed on CHF. Sternal cerclage wires and vascular clips are present from a prior sternotomy and coronary artery bypass graft procedure (CABG). Normal mediastinum and justyn. Normal visualized pulmonary arteries. There is atherosclerotic calcification of the aortic arch with tortuosity. There are diffuse degenerative changes of the visualized thoracic spine. Normal visualized ribs, clavicles, and shoulders. There is no demonstrated abnormality of the visualized soft tissue structures of the upper abdomen. RAD/Chest 1 View (Portable) IMPRESSION: Bilateral pleural effusions left greater than right with bibasilar atelectasis superimposed on CHF. Electronically Signed: Deven Hensley, at 13:00 EST , Service support ,
--- NOTE | 2020-10-01 11:44 | EKG12_ITS ---
Test Reason : SOB Blood Pressure : / mmHG Vent. Rate : 083 BPM Atrial Rate : 091 BPM P-R Int : 000 ms QRS Dur : 098 ms QT Int : 424 ms P-R-T Axes : 000 042 122 degrees QTc Int : 498 ms Atrial fibrillation Left ventricular hypertrophy with repolarization abnormality Prolonged QT Abnormal ECG Confirmed by KRISTINE MONTENEGRO, SMITHA ([id number]), associate editor PATSY LINN ([id number]) on 10/08/2020 10:27:19 AM Referred By: SONG Confirmed By:ANGELINA CARMONA MD
--- NOTE | 2020-10-01 11:46 | ED.VIS.GEN ---
History of Present Illness Chief Complaint: Abd Pain Informant: Patient Onset: Days Context: Gradual Onset Timing: Continuous Quality: Orthopnea, dyspnea Location: Respiratory Current Severity: Moderate Maximum Severity: Severe Worsened by: Minimal activity Relieved by: Nothing Associated Symptoms: Recent thoracentesis Narrative: Patient is a 69-year-old male with multiple medical problems on hemodialysis. Fistula his left arm. He presents because of shortness of breath, orthopnea, dyspnea on exertion. He does have history of COPD. He states he had a thoracentesis performed September 26 left side. 1050 cc was withdrawn. He denies fever, chills night sweats. He denies headache, ocular auditory symptoms. He denies sore throat, dysphagia or dysphonia. He denies chest discomfort. He was unaware that he has bloody maroon material in his colostomy bag that is consistent with blood. He states he has had prior GI bleeds and required transfusions. Will review records to determine if he is on antiplatelet or anticoagulant. He denies bruising easily. He states he does not make urine. He denies contact with anyone ill or diagnosed with Covid. Prior similar symptoms: Yes Recent Illness/Hospitalization: Yes - Past Medical History (1) Pleural effusion Status: Acute (2) Atherosclerotic heart disease of [place] coronary artery without angina pectoris Status: Chronic Comment: 2003, JASON to circumflex ; 10/10/2009 tsfer from [facility] to [facility], total of 5 bare metal stents to RCA; CABG X 3 vessels @ [facility] 01/31/2011 (critical left main and restenosis of RCA stents) (3) BPH (benign prostatic hyperplasia) Status: Chronic (4) COPD (chronic obstructive pulmonary disease) Status: Chronic (5) Chronic atrial fibrillation Status: Chronic (6) Diastolic CHF Status: Chronic (7) ESRD (end stage renal disease) on dialysis Status: Chronic (8) History of non-ST elevation myocardial infarction (NSTEMI) Status: Chronic (9) RAVEN (obstructive sleep apnea) Status: Chronic Comment: AHI 42.6 (10) PAD (peripheral artery disease) Status: Chronic (11) Tobacco dependence Status: Chronic (12) S/P CABG x 3 Status: Resolved Comment: [facility] per Dr. Osito Hernandez: NICHOLAS to LAD, reverse SVG to OMbranch of CX, reverse SVG to PDA of RCA. PDA endarterectomy. Past Medical History - Allergies and Home Meds Allergies/Adverse Reactions: Allergies irbesartan [From Avapro] Allergy (Severe, Verified 10/01/20 11:20) Blisters zolpidem [From Ambien] Adverse Reaction (Severe, Verified 10/01/20 11:20) made me go crazy, memory loss amoxicillin Adverse Reaction (Intermediate, Verified 10/01/20 11:20) PASSES BLOOD IN STOOL TOLERATES ZOSYN PASSES BLOOD IN STOOL gabapentin Adverse Reaction (Unknown, Verified 10/01/20 11:20) emotional metronidazole [From Flagyl] Adverse Reaction (Verified 10/01/20 11:20) pt states he got palpitations and nose bleed. pt states he got palpitations and nose bleed. Primary Care Physician: Tania Berger NP, [facility]C [Primary Care Provider] - Prior records reviewed: Yes Surgical History: coronary bypass surgery, tonsillectomy, - - CABG x3, multiple PCI coronary arteries, right common iliac angioplasty and stenting, aVF, tonsillectomy, multiple endoscopies with intervention. Lives: Spouse/ Significant Other Smoking Status: Light Smoker (<10/day) Alcohol: Rare Drugs: None - Family History Maternal Family History: Family History (Last Reviewed 07/08/20 @ 14:08 by Evelyn Thurman NP, RIVER DR[facility]C) Father CAD (coronary artery disease) Hypertension Kidney disease CVA (cerebral vascular accident) Other Cancer Family History: Reports: Heart Disease Paternal Family History: Family History (Last Reviewed 07/08/20 @ 14:08 by Evelyn Thurman NP, [facility] DR[facility]C) Father CAD (coronary artery disease) Hypertension Kidney disease CVA (cerebral vascular accident) Other Cancer Family History: Reports: Heart Disease, Hypertension, Renal Disease Review of Systems General: Reports: Malaise. Denies: Chills, Fever, Subjective Eyes: Denies: Visual changes - bilaterally, Blurred Vision - bilaterally, Diplopia ENT: Denies: Bilateral ear pain, Rhinorrhea, Sore throat Cardiovascular: Denies: Chest pain, Palpitations Respiratory: Reports: Dyspnea, Cough, Dyspnea on exertion, Orthopnea. Denies: Sputum, Paroxysmal nocturnal dyspnea Gastrointestinal: Denies: Abdominal pain, Nausea, Vomiting, Diarrhea, Melena, Hematochezia Genitourinary: Reports: - - Patient does not make urine Musculoskeletal: Denies: Myalgias, Arthralgias, Back pain Skin: Denies: Rash, Wounds Neurological: Reports: Weakness. Denies: Headache Psych: Reports: Depression Endocrine: Denies: Heat intolerance Hematologic: Denies: Easy bruising, Easy bleeding Physical Exam Vital Signs/Narrative: Vital Signs Temp Pulse Resp BP Pulse Ox 10/01/20 11:17 97.2 F L 92 22 H 130/60 H 100 Inital Vital Signs reviewed: Yes General: Well nourished, Well developed, Acute Distress Head: Normocephalic, Atraumatic Eyes: Perrl, EOMI, Pale conjunctiva, Scleral icterus ENT: No rhinorrhea, TM's clear. Negative for: Moist mucous membranes, Nasal congestion Neck: Supple, Nontender, No lymphadenopathy. Negative for: No JVD Cardiovascular: Regular rate, No murmurs, Normal S1, Normal S2, Irregular Respiratory: Rales - Right lower lobe posteriorly, Diminished - Diminished breath sounds left lower lobe posteriorly.. Negative for: No distress, CTA bilaterally Abdomen: Soft, Nontender, Nondistended, Hyperactive bowel sounds, - - Has maroon bloody material in his colostomy bag. He states he has not had any beats recently.. Negative for: Normal bowel sounds, Hepatomegaly, Splenomegaly Back: Nontender, Normal Inspection Extremities: Nontender Skin: No rash, Jaundice, No Trauma. Negative for: Cyanosis, Diaphoresis Neurological: Alert, Oriented x3, Cranial nerves II-XII grossly intact, Normal Strength, Normal Sensation Psychological: Depressed Diagnostic/Tx/Re-eval Chest X-Ray - ED: 1 View, Read by ED Physician, Normal, Mediastinum, CHF, Right Effusion, Left Effusion, - - X-ray was interpreted by me at 1217. Will initiate BiPAP. Impressions Chest X-Ray 10/01/20 11:44 IMPRESSION: Bilateral pleural effusions left greater than right with bibasilar atelectasis superimposed on CHF. Electronically Signed: Deven Hensley, at 13:00 EST , Service support , 10/01/20 11:44 Chest 1 View (Portable) [RAD] Stat Laboratory Results 10/01/20 10/01/20 10/01/20 11:52 11:52 11:52 WBC 9.2 RBC 2.27 L Hgb 7.5 L Hct 23.3 L MCV 102.6 H MCH 33.0 H MCHC 32.2 RDW Std Deviation 60.1 H RDW Coeff of Eleni 16.0 H Plt Count 193 MPV 10.3 Immature Gran % (Auto) 1.100 H Neut % (Auto) 84.3 H Lymph % (Auto) 5.9 L Doddridge % (Auto) 7.3 Eos % (Auto) 1.0 Baso % (Auto) 0.4 Absolute Neuts (auto) 7.8 H Absolute Lymphs (auto) 0.54 L Nucleated RBC % 0 Differential Comment Platelet Estimate ADEQUATE PT 15.2 H INR 1.3 APTT 40.1 H Specimen Type Sample Site VBG pH VBG pO2 VBG HCO3 VBG Total CO2 VBG O2 Sat (Calc) VBG Base Excess POC Mix VBG pCO2 Pt Tmp O2 Delivery Device POC PEEP POC Pressure Suppt Sodium 129 L Potassium 3.6 Chloride 91 L Carbon Dioxide 27.0 Anion Gap 11 BUN 53 H Creatinine 7.07 H Estim Creat Clear Calc 9.02 Est GFR (MDRD) Af Amer 10 L Est GFR (MDRD) Non-Af 8 L BUN/Creatinine Ratio 7.5 L Glucose 94 Lactic Acid Calcium 8.6 Total Bilirubin 0.80 AST 19 ALT 22 Alkaline Phosphatase 154 H Total Protein 7.4 Albumin 2.7 L Globulin 4.7 H Albumin/Globulin Ratio 0.6 L Blood Type Antibody Screen 10/01/20 10/01/20 10/01/20 11:52 11:52 13:02 WBC RBC Hgb Hct MCV MCH MCHC RDW Std Deviation RDW Coeff of Eleni Plt Count MPV Immature Gran % (Auto) Neut % (Auto) Lymph % (Auto) Doddridge % (Auto) Eos % (Auto) Baso % (Auto) Absolute Neuts (auto) Absolute Lymphs (auto) Nucleated RBC % Differential Comment Platelet Estimate PT INR APTT Specimen Type FER Sample Site R Radial VBG pH 7.43 H VBG pO2 23 L VBG HCO3 27 H VBG Total CO2 28 VBG O2 Sat (Calc) 42 L VBG Base Excess 3 POC Mix VBG pCO2 Pt Tmp 41.2 O2 Delivery Device BiPAP POC PEEP 12 POC Pressure Suppt 18 Sodium Potassium Chloride Carbon Dioxide Anion Gap BUN Creatinine Estim Creat Clear Calc Est GFR (MDRD) Af Amer Est GFR (MDRD) Non-Af BUN/Creatinine Ratio Glucose Lactic Acid 1.6 Calcium Total Bilirubin AST ALT Alkaline Phosphatase Total Protein Albumin Globulin Albumin/Globulin Ratio Blood Type A NEGATIVE Antibody Screen NEGATIVE Hemoglobin 7.5. Will compare to prior results determine if he had acute blood loss. Lactate is normal. Sodium is low. Creatinine is elevated, which 1 would expect since he is on hemodialysis. Graph I was informed by respiratory that his respiratory rate improved markedly after DuoNeb. In light of this will administer Solu-Medrol and an albuterol treatment. After reviewing records we will contact hospitalist for admission. The gas results are consistent with a venous blood gas and not arterial blood gas. His saturation is 100% on BiPAP. - EKG Initial EKG Interpretation: - - Ventricular rate is 83. Suspect this is a sinus rhythm. QRS duration is 96 ms. QT duration is 424 ms. QTc is 498 ms which is prolonged. There is evidence of LVH with repolarization changes. There is premature beats noted as well. - Medical Decision Making Patient presents with dyspnea. This may be due to anemia, fluid overload, pleural effusion, pneumonia will obtain EKG to rule out cardiac ischemia, chest x-ray and appropriate blood work. He was typed and screened since he has a GI bleed. Most recent hemoglobin was February and was 9.6. The hyponatremia is new as well. Since he is a GI bleed with a drop in hemoglobin on BiPAP will call hospitalist for admission to ICU. - Critical Care Time Critical care time (excluding procedures): 30-74 minutes - Care time 36 minutes this includes time for history, physical, review of prior records, documentation, discussion with hospitalist and cut off saw operator metal and initiating care., Discussing w/Patient &/or Family/Insurance Agent, Discussing w/Consultants, Arranging Admission or Transfer ED Disposition - Plan for ED Patient: Disposition: Acute Care Hospital [facility] Diagnosis: Acute on chronic respiratory failure with hypoxia and hypercapnia, Bleeding, Acute lower GI bleeding, Anemia due to acute blood loss, Hyponatremia, Bilateral pleural effusion, Fluid overload, COPD exacerbation Referrals: Tania Berger RIVER DRIVER, [facility]C [Primary Care Provider] -
[2020-10-01 12:04] LABS: Absolute Lymphocyte Count 0.54 X10^3/uL (0.83-4.51); Absolute Neutrophil Count 7.8 X10^3/uL (2.0-7.7); Basophil# 0.04 X10^3/uL; Basophil% 0.4 % (0-1); Eosinophil# 0.09 X10^3/uL; Hematocrit 23.3 % (40-54); Hemoglobin 7.5 g/dL (13.0-16.5); Lymphocyte # 0.54 X10^3/ul (4.0); Lymphocyte % 5.9 % (19-41); Mean Corp Hgb Conc 32.2 g/dL (32-36); Mean Corpuscular Volume 102.6 fL (80-94); Mean Platelet Vol. 10.3 fl (6.2-12.0); Monocyte# 0.67 X10^3/uL; Monocyte% 7.3 % (0-10); NRBC Flagged by Analyzer 0 % (0-5); Neutrophil # 7.79 X10^3/uL (2.7-7.7); Neutrophil % 84.3 % (47-70); POSITIVE DIFFERENTIAL YES; Platelet Count 193 K/mm3 (150-450); RBC Distribution Width SD 60.1 fl (35.1-43.9); Red Blood Count 2.27 M/mm3 (4.6-6.2); White Blood Count 9.2 K/mm3 (4.4-11.0)
[2020-10-01 12:09] LABS: Differential Indicated SCAN CRITERIA MET
[2020-10-01 12:17] LABS: ALB/GLOB Ratio 0.6 RATIO (0.9-2.4); AST(SGOT) 19 U/L (15-37); Alanine Aminotransfer ALT/SGPT 22 U/L (16-61); Albumin, Serum 2.7 g/dL (3.2-5.0); Alkaline Phosphatase 154 U/L (45-117); Anion Gap 11 (5-15); BUN 53 mg/dL (7-18); BUN/Creat Ratio 7.5 RATIO (10-20); Calcium,Total 8.6 mg/dL (8.5-10.1); Chloride 91 mmol/L (98-107); Creatinine, Serum 7.07 mg/dL (0.70-1.30); EST Glomerular Filtration Rate 8 mL/min (>60); Est Glom Filt Rate - Afr Amer 10 mL/min (>60); Estimated Creatinine Clearance 9.02 ml/min; Globulin 4.7 g/dL (2.2-4.2); Glucose 94 mg/dL (74-106); Potassium 3.6 mmol/L (3.5-5.1); Protein, Total 7.4 g/dL (6.4-8.2); Sodium Level 129 mmol/L (136-145)
[2020-10-01 12:19] LABS: International Normalized Ratio 1.3; Prothrombin Time (Protime)PT. 15.2 SECONDS (11.7-14.9)
[2020-10-01 12:20] LABS: Partial Thromboplast Time 40.1 Seconds (24.1-36.2)
[2020-10-01 12:38] LABS: Platelet Estimate ADEQUATE (ADEQ)
[2020-10-01 12:53] LABS: Lactic Acid 1.6 mmol/L (0.4-1.9)
[2020-10-01 13:10] LABS: Blood Gas Specimen Type VEN; O2 Delivery Device BiPAP; PEEP 12; PS 18; SITE R Radial; VBG BASE EXCESS 3 mmol/L (-1.0-3.5); VBG Bicarbonate 27 mmol/L (22-26); VBG PO2 23 mmHg (25-40); VBG SO2 42 % (50-70); VBG TCO2 28 mmol/L (23-33); VBG pCO2 41.2 mmHg (41-51); VBG pH 7.43 (7.32-7.42)
[2020-10-01] MEDS: Ipratropium/Albuterol Sulfate 3 ML AMPUL.NEB INHALATION ×2 (13:12→20:35)
--- NOTE | 2020-10-01 13:46 | PCM.HP.STD ---
Problem List (1) Diastolic CHF Status: Chronic Qualifiers: Heart failure chronicity: acute Qualified Code(s): I50.31 - Acute diastolic (congestive) heart failure (2) Acute on chronic respiratory failure with hypoxia and hypercapnia Status: Acute (3) Acute lower GI bleeding Status: Acute (4) Anemia due to acute blood loss Status: Acute (5) Bilateral pleural effusion Status: Acute (6) Fluid overload Status: Acute Qualifiers: Hypervolemia type: unspecified Qualified Code(s): E87.70 - Fluid overload, unspecified (7) COPD exacerbation Status: Acute (8) ESRD (end stage renal disease) on dialysis Status: Chronic (9) Chronic atrial fibrillation Status: Chronic (10) RAVEN (obstructive sleep apnea) Status: Chronic Comment: AHI 42.6 (11) S/P CABG x 3 Status: Resolved Comment: [facility] per Dr. Osito Hernandez: NICHOLAS to LAD, reverse SVG to OMbranch of CX, reverse SVG to PDA of RCA. PDA endarterectomy. (12) HLD (hyperlipidemia) Status: Chronic Qualifiers: Hyperlipidemia type: unspecified Qualified Code(s): E78.5 - Hyperlipidemia, unspecified (13) HTN (hypertension) Status: Chronic Qualifiers: Hypertension type: essential hypertension Qualified Code(s): I10 - Essential (primary) hypertension (14) PAD (peripheral artery disease) Status: Chronic (15) COPD (chronic obstructive pulmonary disease) Status: Chronic Qualifiers: COPD type: unspecified COPD Qualified Code(s): J44.9 - Chronic obstructive pulmonary disease, unspecified (16) Tobacco dependence Status: Chronic (17) BPH (benign prostatic hyperplasia) Status: Chronic Qualifiers: Lower urinary tract symptom presence: unspecified whether lower urinary tract symptoms present Qualified Code(s): N40.0 - Benign prostatic hyperplasia without lower urinary tract symptoms History of Present Illness Date of Admission: 10/01/20 Chief Complaint: Dyspnea, wheezing. The patient is a 69 y/o M w/ PMHx: Chronic anemia, CAD s/p PCI, Chronic COPD, BPH, HTN, HLD, PAD s/p PCI, CAD s/p CABG x 3 and PCI w/ Hx MA, ESRD on HD Tobacco use, RAVEN, Anxiety and Depression, Chronic AF not anticoagulated secondary to GI bleed history who presents to the [facility] ED on 10/01/20 with worsening dyspnea, orthopnea, more severe with any exertion with recent 09/26/2028 left-sided thoracentesis with 1050 cc removal at that time with recurrent symptoms prompting ED evaluation. While in the ED patient did have noted bloody maroon stool in the colostomy bag concerning for blood with prior history of GI bleeds requiring transfusion. Denies any recent fever, chills, nausea, vomiting, sore throat, alteration sense of taste or smell, body aches. Work-up in the ED included T 97.2, HR 92, BP 130/60, RR 22, 100% on 3L NC-->BIPAP 100% on 50% with RR 24, CBC w/ WBC 9.2, Hgb 7.5, MCV 102.6, Plt 193 with L shift and lymphopenia, coags with PT 15.2, 1.3, PTT 40.1, ABG w/ pH 7.43, pO2 23, O2 sat 42, venous, CMP with Na 129, Chl 91, BUN/Cr 53/7.07, LA 1.6, Alk phos 154, T+S A negative, CXR with BL effusion L > R with vasular atelectasis superimposed on CHF, EKG w/ sinus rhythm with repolarization changes, premature beats, mildly prolonged QTC. In the ED patient administered duoneb therapy. Past Medical History Past Medical History (Chronic Problems): Chronic Problems (Last Reviewed 10/01/20 @ 16:02 by Tiara FELIPE, PA-C) ESRD (end stage renal disease) on dialysis (Chronic) Transudative pleural effusion (Chronic) Chronic atrial fibrillation (Chronic) Problem with dialysis access (Chronic) RAVEN (obstructive sleep apnea) (Chronic) AHI 42.6 ESRD (end stage renal disease) (Chronic) History of non-ST elevation myocardial infarction (NSTEMI) (Chronic 01/21/11) Atherosclerotic heart disease of [place] coronary artery without angina pectoris (Chronic) 2003, JASON to circumflex ; 10/10/2009 tsfer from [facility] to [facility], total of 5 bare metal stents to RCA; CABG X [address] [facility] 01/31/2011 (critical left main and restenosis of RCA stents) Diastolic CHF (Chronic) HLD (hyperlipidemia) (Chronic) HTN (hypertension) (Chronic) PAD (peripheral artery disease) (Chronic) COPD (chronic obstructive pulmonary disease) (Chronic) Tobacco dependence (Chronic) Anemia (Chronic) BPH (benign prostatic hyperplasia) (Chronic) Medical History: Medical History (Last Reviewed 10/01/20 @ 16:02 by Tiara FELIPE, PA-C) Contact dermatitis (Acute) L25.9 ESRD (end stage renal disease) (Chronic) N18.6 History of non-ST elevation myocardial infarction (NSTEMI) (Chronic) Onset Date: 01/21/11 I25.2 Atherosclerotic heart disease of [place] coronary artery without angina pectoris (Chronic) I25.10 2003, JASON to circumflex ; 10/10/2009 tsfer from [facility] to [facility], total of 5 bare metal stents to RCA; CABG X [address] [facility] 01/31/2011 (critical left main and restenosis of RCA stents) Diastolic CHF (Chronic) I50.30 HLD (hyperlipidemia) (Chronic) E78.5 HTN (hypertension) (Chronic) I10 PAD (peripheral artery disease) (Chronic) I73.9 COPD (chronic obstructive pulmonary disease) (Chronic) J44.9 Tobacco dependence (Chronic) F17.200 Anemia (Chronic) D64.9 BPH (benign prostatic hyperplasia) (Chronic) N40.0 Allergies irbesartan [From Avapro] Allergy (Severe, Verified 10/01/20 11:20) Blisters zolpidem [From Ambien] Adverse Reaction (Severe, Verified 10/01/20 11:20) made me go crazy, memory loss amoxicillin Adverse Reaction (Intermediate, Verified 10/01/20 11:20) PASSES BLOOD IN STOOL TOLERATES ZOSYN PASSES BLOOD IN STOOL gabapentin Adverse Reaction (Unknown, Verified 10/01/20 11:20) emotional metronidazole [From Flagyl] Adverse Reaction (Verified 10/01/20 11:20) pt states he got palpitations and nose bleed. pt states he got palpitations and nose bleed. Home Medications: Ambulatory Orders Medication Instructions Recorded Budesonide Aerosol [Pulmicort 1 inh INHALATION BID 07/23/19 Respules] Ipratropium/Albuterol Sulfate 1 inh INHALATION Q4H PRN PRN 07/23/19 [Iprat-Albut 0.5-3(2.5) mg/3 ml] Rosuvastatin Calcium [Crestor] 40 mg PO QHS 07/23/19 hydrOXYzine pamoate capsule 25 mg PO 4X/DAY PRN PRN #30 cap 02/07/20 [Vistaril pamoate capsule] ALPRAZolam [Xanax] 1 mg PO BID 10/01/20 Cholecalciferol (Vitamin D3) 2,000 unit PO DAILY 10/01/20 [D3-2000] Metoprolol Succinate [Toprol Xl] 50 mg PO BID 10/01/20 [place]-3 Fatty Acids/Fish Oil [Fish 1 ea PO DAILY 10/01/20 Oil 1,000 mg Capsule] Sucralfate 1 gm PO BID 10/01/20 Surgical History: Surgical History (Last Reviewed 10/01/20 @ 16:03 by Tiara FELIPE, PA-C) s/p fistulogram (Resolved) Onset Date: ~09/28/18 history of surgically created arteriovenous fistula (Resolved) Stented coronary artery (Resolved) Z95.5 2003, JASON to circumflex ; 10/13/2009 tsfer from [facility] to [facility], total of 5 bare metal stents to RCA per Dr. 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 Osito Hernandez: NICHOLAS to LAD, reverse SVG to OMbranch of CX, reverse SVG to PDA of RCA. PDA endarterectomy. Status post peripheral artery angioplasty with insertion of stent (Resolved) Onset Date: ~2010 Z95.820 Right common iliac, [facility] Surgical History: coronary bypass surgery, tonsillectomy, - - CABG x3, multiple PCI coronary arteries, right common iliac angioplasty and stenting, aVF, tonsillectomy, multiple endoscopies with intervention. Psychiatric History: Anxiety Lives: Spouse/ Significant Other Smoking Status: Current some day smoker Tobacco Use: Cigarettes Alcohol: Rare Drugs: None - *Family History Maternal Family History: Family History (Last Reviewed 10/01/20 @ 16:05 by Tiara FELIPE, PA-C) Father CAD (coronary artery disease) Hypertension Kidney disease CVA (cerebral vascular accident) Other Cancer History Items: Heart Disease Paternal Family History: Family History (Last Reviewed 10/01/20 @ 16:05 by Tiara FELIPE, PA-C) Father CAD (coronary artery disease) Hypertension Kidney disease CVA (cerebral vascular accident) Other Cancer History Items: Heart Disease, Hypertension, Renal Disease Review of Systems Constitutional: Reports: Anorexia, Malaise, Weakness, Fatigue. Denies: Chills, Fever, Weight Change HEENT: Denies: Head Aches, Sinus Congestion, Sinus Drainage Cardiovascular: Reports: Orthopnea. Denies: Chest Pain, Chest Pressure, Chest Tightness, Palpitations Respiratory: Reports: Cough, Shortness of Breath, Shortness of breath at rest, Shortness of breath upon exertion, Wheezing. Denies: Sputum production Gastrointestinal: Reports: Abdominal Pain, - - Maroon stools in ostomy bag.. Denies: Nausea, Vomiting Genitourinary: Denies: Dysuria Musculoskeletal: Reports: Back Pain. Denies: Joint Pain, Joint Tenderness Skin: Reports: Skin Changes. Denies: Rash, Wounds Neurological: Denies: Numbness, Tingling, Focal weakness Psychiatric: Denies: Anxiety, Depression, Homicidal Ideations, Suicidal Ideations Hematologic/ Lymphatic: Reports: Anemia, Easy Bruising, Easy Bleeding VTE Information - Inpt Only VTE Present on Admission: No VTE Mechan Device Prophylaxis: SCD's VTE Pharm Prophylaxis ordered?: No Reason prophylaxis not ordered:: Medical Contraindication Patient Problems: Active and Suspected Problems (Last Reviewed 10/01/20 @ 16:02 by Tiara FELIPE, PA-C) Acute on chronic respiratory failure with hypoxia and hypercapnia (Acute) Bleeding (Acute) Acute lower GI bleeding (Acute) Anemia due to acute blood loss (Acute) Hyponatremia (Acute) Bilateral pleural effusion (Acute) Fluid overload (Acute) COPD exacerbation (Acute) Acute GI bleeding (Acute) Pleural effusion (Acute) Subjective: Patient seated upright in the ED bed, fatigued, on BIPAP, increased RR, evident distress. Objective: Physical Examination: General: awakens to stimuli, alert, fatigued appearing, answering orientation questions x 3 but difficult with BIPAP, cooperative, seated upright in the ED bed, BIPAP in place, still increased RR, distress evident. Skin: normal color, turgor, no icterus, cyanosis except stasis disease, occasional staged ecchymoses. HEENT: AT/NC, EOMI, PERRLA, dry MM, BIPAP in place, difficult to assess carotid bruits and JVD secondary to BIPAP placement. Lungs: Diminished BS BL L > R rales BL,evident distress, BIPAP in place, fatigued appearance, wheezing present, no rhonchi. Heart: Regular rate and rhythm; no gallop, rub audible. Abdomen: soft, thin habitus, NTTP, ND, normal BS, no HSM, ostomy bag with evidence dark appearing blood, liquid. Extremities: no cyanosis, clubbing, or edema. Neurological: awakens to stimuli, alert, fatigued appearing, answering orientation questions x 3 but difficult with BIPAP; cognitive function mildly decreased from baseline secondary to acute presentation; pupils equally reactive to light and accomodation; cranial nerves II-XII grossly normal, moving all 4 extremities, no focal deficits, strength severely globally decreased secondary to acute presentation. Psychiatric: affect appears fatigued, distress evident, no acute evidence of depressive or anxiety feelings. - Physical Exam Vitals/I&O's: Vital Signs Temp Pulse Resp BP Pulse Ox 97.2 F L 77 19 H 130/60 H 100 10/01/20 11:17 10/01/20 13:16 10/01/20 13:16 10/01/20 11:17 10/01/20 13:03 Oxygen Flow Rate (L/min) 3 Oxygen Delivery Method Nasal Cannula Weight: 149 lb 14.629 oz Body Mass Index (BMI) 24.2 Finger Stick Blood Glucose 200 Laboratory Results 10/01/20 11:52: WBC 9.2, RBC 2.27 L, Hgb 7.5 L, Hct 23.3 L, MCV 102.6 H, MCH 33.0 H, MCHC 32.2, RDW Std Deviation 60.1 H, RDW Coeff of Eleni 16.0 H, Plt Count 193, MPV 10.3, Immature Gran % (Auto) 1.100 H, Neut % (Auto) 84.3 H, Lymph % (Auto) 5.9 L, [place] % (Auto) 7.3, Eos % (Auto) 1.0, Baso % (Auto) 0.4, Absolute Neuts (auto) 7.8 H, Absolute Lymphs (auto) 0.54 L, Nucleated RBC % 0, Differential Comment , Platelet Estimate ADEQUATE 10/01/20 11:52: PT 15.2 H, INR 1.3, APTT 40.1 H 10/01/20 11:52: Sodium 129 L, Potassium 3.6, Chloride 91 L, Carbon Dioxide 27.0, Anion Gap 11, BUN 53 H, Creatinine 7.07 H, Estim Creat Clear Calc 9.02, Est GFR (MDRD) Af Amer 10 L, Est GFR (MDRD) Non-Af 8 L, BUN/Creatinine Ratio 7.5 L, Glucose 94, Calcium 8.6, Total Bilirubin 0.80, AST 19, ALT 22, Alkaline Phosphatase 154 H, Total Protein 7.4, Albumin 2.7 L, Globulin 4.7 H, Albumin/Globulin Ratio 0.6 L 10/01/20 11:52: Lactic Acid 1.6 10/01/20 11:52: Blood Type A NEGATIVE, Antibody Screen NEGATIVE 10/01/20 13:02: Specimen Type FER, Sample Site R Radial, VBG pH 7.43 H, VBG pO2 23 L, VBG HCO3 27 H, VBG Total CO2 28, VBG O2 Sat (Calc) 42 L, VBG Base Excess 3, POC Mix VBG pCO2 Pt Tmp 41.2, O2 Delivery Device BiPAP, POC PEEP 12, POC Pressure Suppt 18 Assessment/Plan All Active Problems (Last Reviewed 10/01/20 @ 16:03 by Tiara FELIPE, PA-C) Acute on chronic respiratory failure with hypoxia and hypercapnia (Acute) Bleeding (Acute) Acute lower GI bleeding (Acute) Anemia due to acute blood loss (Acute) Hyponatremia (Acute) Bilateral pleural effusion (Acute) Fluid overload (Acute) COPD exacerbation (Acute) Acute GI bleeding (Acute) Pleural effusion (Acute) Pneumonia (Acute) SBO (small bowel obstruction) (Acute) Contact dermatitis (Acute) s/p fistulogram (Resolved ~09/28/18) history of surgically created arteriovenous fistula (Resolved) Stented coronary artery (Resolved) S/P CABG x 3 (Resolved 01/26/11) Status post peripheral artery angioplasty with insertion of stent (Resolved ~2010) The patient is a 69 y/o M w/ PMHx: Chronic anemia, CAD s/p PCI, Chronic COPD, BPH, HTN, HLD, PAD s/p PCI, CAD s/p CABG x 3 and PCI w/ Hx MA, ESRD on HD Tobacco use, RAVEN, Anxiety and Depression, Chronic AF not anticoagulated secondary to GI bleed history who presents to the [facility] ED on 10/01/20 with worsening dyspnea, orthopnea, more severe with any exertion with recent 09/26/2028 left-sided thoracentesis with 1050 cc removal at that time with recurrent symptoms prompting ED evaluation. 1. Acute Hypoxic and Hypercarbic Respiratory Failure on Chronic secondary to Acute Decompensated Diastolic CHF complicated by Recurrent BL Pleural Effusions, L > R, complicated by #2 and #3: Will admit to the ICU, maintain on BIPAP, continue ICU physician consultation, requesting Nephrology involvement for HD, will necessitate recurrent thoracentesis, maintain on cardiac telemetry, obtain cardiac enzyme series, obtain serial EKGs, continue IV lasix diuresis in the interim awaiting HD session and thoracenteses, monitor I/Os, maintain on intake restriction, continue medical therapy statin, BB, obtain TSH and magnesium level. Most recent ECHO noted 11/15/19 with EF 55%, evidence diastolic dysfunction, mild MVI, trivial TBI, trivial JASON, large pleural left effusion at that time noted. May consider Cardiology consultation. PRN morphine to decrease afterload, continue oxygen supplementation, if necessary will position w/ upright position with legs off bed to decrease preload. 2. Acute Recurrent Suspected GI Bleed w/ resultant Acute on Chronic Anemia, Fe Deficiency Anemia, AOCD: Patient with maroon-colored stools in his ostomy bag, unaware, no abdominal complaints, presentation concurrently as noted #1. Admission Hgb 7.5, prior PRBC administrations required, baseline primarily 8-9. Will obtain serial H+H, ED obtained T+S w/ cross for PRBC administration if appropriate, maintain on IV PPI. GI consulted. Clears only. 3. Acute Hypoxic and Hypercarbic Respiratory Failure on Chronic secondary to Acute on chronic COPD exacerbation: Will maintain BIPAP as noted, continue ATC duonebs, PRN albuterol, IV methylprednisolone, ICU/pulm consulted, HOB, IS parameters, pending sputum cultures, respiratory viral panel, antigens and COVID testing to be cautious. 4. PAD/PVD: Patient status post right common iliac angioplasty and PCI, PVD history, not on ASA given GI bleed hx nor any additional antiplt/anticoagulant therapy, continue home metoprolol, statin regimen. 5. Hypertension: Continue home regimen including metoprolol with hold parameters, PRN hydralazine. 6. Hyperlipidemia: Continue home statin regimen. 7. Chronic atrial fibrillation: Holding oral BB, transition to IV with hold as needed. Not anticoagulated secondary to GI bleed history. 8. ESRD: Patient on dialysis following with Dr. Alaniz, consulted, continue HD regimen and given presentation may necessitate earlier course. 9. Former Tobacco Abuse: Encouraged continued cessation. 10. CAD: Status post CABG x3 and PCI, not on ASA given GI bleed hx, continue metoprolol, statin therapy. 11. BPH: Continue home Flomax regimen. 12. RAVEN: Currently on BIPAP, will continue as noted. 13. GERD: Continue PPI. 14. Hyponatremia, Chronic: Admission Na 129, baseline prior noted 130-134, continue to trend. 15. DVT prophylaxis: SCDs, defer chemoprophylaxis given presentation as noted #1 and #2. 16. CODE status: Patient CL is his and living will is currently in place. Discussed CODE status at length including difference between FULL code, DNR-CCA and DNR-CC status. Following discussions about the differences in these status, requested Full Code status. Advanced Care Planning Face to Face Time: 16 minutes. Inpatient E&M: 18154 Init Hosp L3 Procedures: 31946 Advncd Care Plan 30 Min
--- NOTE | 2020-10-01 14:18 | NURSING ---
ICU WHITE RESP WITH HYPERCAPNIA AND HYPOXIA, LOWER GI BLEED
[2020-10-01] MEDS: MethylPREDNISolone 125 MG/2 ML Vial IV (14:19)
--- NOTE | 2020-10-01 14:27 | US_ITS ---
PROCEDURE: ULTRASOUND GUIDED THORACENTESIS. DATE: 10/01/2020. INDICATION: Male, 69 years old. Left pleural effusion. PHYSICIAN: Deven Hensley M.D. PROCEDURE: The risks, benefits, and alternatives to the procedure were explained to the patient. The specific risks of bleeding, infection, and pneumothorax requiring chest tube insertion were discussed and accepted. Written informed consent was obtained. Ultrasonographic evaluation of the left lower pleural space was carried out. An adequate pocket was identified. The patient was placed in the sitting, upright position. The overlying skin was prepped and draped in sterile fashion. 1% lidocaine was administered subcutaneously for local anesthesia. Under ultrasound guidance, a 5 [place] thoracentesis needle/catheter system was advanced into the left posterior lower pleural fluid collection. Approximately 1150 mL of douglas-colored fluid was drained. The catheter was removed, and a sterile dressing was applied. The patient tolerated the procedure well. A chest x-ray was ordered. US/Thoracentesis W US IMPRESSION: Ultrasound-guided left thoracentesis. Electronically Signed: Deven Hensley, at 15:14 EST , Service support ,
--- NOTE | 2020-10-01 14:50 | RAD_ITS ---
STUDY: X-RAY CHEST REASON FOR EXAM: Male, 69 years old. RESP FAILURE, CHF EXAC, BL EFUSIONS, GI BLEED TECHNIQUE: AP inspiration and expiration views. COMPARISON: Comparison is made with prior examination done earlier in the day. FINDINGS: Status post left thoracentesis. There is no evidence of pneumothorax. Minimal residual pleural parenchymal changes at the left lung base. RAD/Chest Insp/Exp 2 View IMPRESSION: Status post left thoracentesis. There is no evidence of pneumothorax. Electronically Signed: Deven Hensley, at 15:06 EST , Service support ,
--- NOTE | 2020-10-01 15:30 | NURSING ---
GOING TO PCU INSTEAD OF ICU
[2020-10-01] MEDS: Albuterol 2.5 MG/3 ML VIAL.NEB. INHALATION (15:40)
--- NOTE | 2020-10-01 15:48 | PCM.CONS.GEN ---
Problem List (1) Acute GI bleeding Status: Acute Reason for Consult Date of Consultation: 10/01/20 Reason for Consultation: Acute GI bleed. History of Present Illness: The patient is a 69 year old M who presented with worsening shortness of breath, dyspnea on exertion. Patient has multiple comorbidities. Patient is currently on dialysis via left upper extremity AV fistula. 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 Patient states he has been having his normal bowel movements within the bag. He has not noted any blood within the ostomy bag until yesterday. He stated he didn't pay attention to bleeding until it was mentioned in the ED today. Patient denies abdominal pain, nausea, vomiting. He denies vomiting up blood. He has had multiple hospitalizations for GI bleed. At one point, patient was transferred to [facility] where it was mentioned he had a small bowel AVM that is the cause of the bleeding. Per patient, during that hospitalization cauterization took place in the stomach and small bowel region. Records are not available for review. Patient was to return for follow-up to [facility] however he has yet to accomplish this. Patient notes his last ER visit for bleeding was back in February. No admission was completed due to the patient refused and wanted to be discharged to home. It was recommended the patient follow-up with Dr. Henderson, which he did not follow-through with. Patient's last documented EGD was performed on 03/27/[address] Henderson. Findings were unremarkable, no source of bleeding was noted. Patient has also had a capsule endoscopy on 05/10/19 which demonstrated areas of distal small bowel with dark stool. ? related to po iron or prior bleeding. It was recommended the patient have a tagged RBC scan if patient rebleeds. No further endoscopy notes were found following March's procedure. Patient continues with dialysis treatment. He keeps an neo wrap around his fistula secondary to pruritus. Patient has been dealing with itching for months. Patient states dialysis has been going well for him without any concerns. Patient also has bilateral pleural effusions for which he follows with Dr. Caicedo. He recently had a thoracentesis last . Patient has stated he is no longer smoking. He does wear oxygen at home. Patient had another paracentesis just prior to my examination. Patient states he feels much improved since the procedure. Approximately 1150cc of douglas-colored fluid was removed. Past Medical History Past Medical History (Chronic Problems): Chronic Problems (Last Reviewed 10/01/20 @ 16:02 by Tiara FELIPE PA-C) Acute on chronic respiratory failure with hypoxia and hypercapnia (Chronic) COPD exacerbation (Chronic) ESRD (end stage renal disease) on dialysis (Chronic) Transudative pleural effusion (Chronic) Chronic atrial fibrillation (Chronic) Problem with dialysis access (Chronic) RAVEN (obstructive sleep apnea) (Chronic) AHI 42.6 ESRD (end stage renal disease) (Chronic) History of non-ST elevation myocardial infarction (NSTEMI) (Chronic 01/21/11) Atherosclerotic heart disease of [place] coronary artery without angina pectoris (Chronic) 2004, JASON to circumflex ; 10/10/2009 tsfer from [facility] to [facility], total of 5 bare metal stents to RCA; CABG X 3 vessels @ [facility] 01/31/2011 (critical left main and restenosis of RCA stents) Diastolic CHF (Chronic) HLD (hyperlipidemia) (Chronic) HTN (hypertension) (Chronic) PAD (peripheral artery disease) (Chronic) COPD (chronic obstructive pulmonary disease) (Chronic) Tobacco dependence (Chronic) Anemia (Chronic) BPH (benign prostatic hyperplasia) (Chronic) Medical History: Medical History (Last Reviewed 10/01/20 @ 16:02 by FRANCO LesterC) Contact dermatitis (Acute) L25.9 ESRD (end stage renal disease) (Chronic) N18.6 History of non-ST elevation myocardial infarction (NSTEMI) (Chronic) Onset Date: 01/21/11 I25.2 Atherosclerotic heart disease of [place] coronary artery without angina pectoris (Chronic) I25.10 2003, JASON to circumflex ; 10/10/2009 tsfer from [facility] to [facility], total of 5 bare metal stents to RCA; CABG X 3 vessels @ [facility] 01/31/2011 (critical left main and restenosis of RCA stents) Diastolic CHF (Chronic) I50.30 HLD (hyperlipidemia) (Chronic) E78.5 HTN (hypertension) (Chronic) I10 PAD (peripheral artery disease) (Chronic) I73.9 COPD (chronic obstructive pulmonary disease) (Chronic) J44.9 Tobacco dependence (Chronic) F17.200 Anemia (Chronic) D64.9 BPH (benign prostatic hyperplasia) (Chronic) N40.0 Allergies irbesartan [From Avapro] Allergy (Severe, Verified 10/01/20 11:20) Blisters zolpidem [From Ambien] Adverse Reaction (Severe, Verified 10/01/20 11:20) made me go crazy, memory loss amoxicillin Adverse Reaction (Intermediate, Verified 10/01/20 11:20) PASSES BLOOD IN STOOL TOLERATES ZOSYN PASSES BLOOD IN STOOL gabapentin Adverse Reaction (Unknown, Verified 10/01/20 11:20) emotional metronidazole [From Flagyl] Adverse Reaction (Verified 10/01/20 11:20) pt states he got palpitations and nose bleed. pt states he got palpitations and nose bleed. Home Medications: Ambulatory Orders Medication Instructions Recorded Budesonide Aerosol [Pulmicort 1 inh INHALATION BID 07/23/19 Respules] Ipratropium/Albuterol Sulfate 1 inh INHALATION Q4H PRN PRN 07/23/19 [Iprat-Albut 0.5-3(2.5) mg/3 ml] Rosuvastatin Calcium [Crestor] 40 mg PO QHS 07/23/19 hydrOXYzine pamoate capsule 25 mg PO 4X/DAY PRN PRN #30 cap 02/07/20 [Vistaril pamoate capsule] ALPRAZolam [Xanax] 1 mg PO BID 10/01/20 Cholecalciferol (Vitamin D3) 2,000 unit PO DAILY 10/01/20 [D3-2000] Metoprolol Succinate [Toprol Xl] 50 mg PO BID 10/01/20 [place]-3 Fatty Acids/Fish Oil [Fish 1 ea PO DAILY 10/01/20 Oil 1,000 mg Capsule] Sucralfate 1 gm PO BID 10/01/20 Surgical History: Surgical History (Last Reviewed 10/01/20 @ 16:03 by Tiara FELIPE PALaloC) s/p fistulogram (Resolved) Onset Date: ~09/28/18 history of surgically created arteriovenous fistula (Resolved) Stented coronary artery (Resolved) Z95.5 2004, JASON to circumflex ; 10/13/2009 tsfer from [facility] to [facility], total of 5 bare metal stents to RCA per Dr. Barrientos @ [facility]: 3.5 X 18 Press Hand Supervisor, followed distally by 3.0 X12 Press Hand Supervisor to distal RCA;3.5 X 15 Press Hand Supervisor, followed proximally by 4.0 X 18 Press Hand Supervisor to Mid RCA; 4.0 X 18 Press Hand Supervisor to Proximal RCA S/P CABG x 3 (Resolved) Onset Date: 01/26/11 Z95.1 [facility] per Dr. Osito Hernandez: NICHOLAS to LAD, reverse SVG to OMbranch of CX, reverse SVG to PDA of RCA. PDA endarterectomy. Status post peripheral artery angioplasty with insertion of stent (Resolved) Onset Date: ~2010 Z95.820 Right common iliac, [facility] Surgical History: coronary bypass surgery, tonsillectomy, - - CABG x3, multiple PCI coronary arteries, right common iliac angioplasty and stenting, aVF, tonsillectomy, multiple endoscopies with intervention, end ileostomy creation following right and transverse colectomy for ischemic colitis Psychiatric History: Anxiety Lives: Spouse/ Significant Other Smoking Status: Current some day smoker Alcohol: Rare Drugs: None - *Family History Maternal Family History: Family History (Last Reviewed 10/01/20 @ 16:05 by Tiara FELIPE PA-C) Father CAD (coronary artery disease) Hypertension Kidney disease CVA (cerebral vascular accident) Other Cancer History Items: Heart Disease Paternal Family History: Family History (Last Reviewed 10/01/20 @ 16:05 by Tiara FELIPE PA-C) Father CAD (coronary artery disease) Hypertension Kidney disease CVA (cerebral vascular accident) Other Cancer History Items: Heart Disease, Hypertension, Renal Disease Review of Systems Constitutional: Denies: Chills, Fever, Weight Change HEENT: Denies: Head Aches, Sinus Congestion, Sinus Drainage Cardiovascular: Denies: Chest Pain, Palpitations Respiratory: Reports: Shortness of breath upon exertion Gastrointestinal: Reports: Melena. Denies: Abdominal Pain, Nausea, Vomiting Genitourinary: Denies: Dysuria Musculoskeletal: Denies: Joint Pain, Joint Tenderness Skin: Denies: Rash, Wounds Neurological: Denies: Numbness, Tingling, Focal weakness Psychiatric: Reports: Anxiety Hematologic/ Lymphatic: Reports: Anemia, Easy Bruising, Easy Bleeding, Hx of blood transfusion Patient Problems: Active and Suspected Problems (Last Reviewed 10/01/20 @ 16:02 by Tiara FELIPE PA-C) Bleeding (Acute) Acute lower GI bleeding (Acute) Anemia due to acute blood loss (Acute) Hyponatremia (Acute) Bilateral pleural effusion (Acute) Fluid overload (Acute) Acute GI bleeding (Acute) Pleural effusion (Acute) - Physical Exam Vitals/I&O's: Vital Signs Temp Pulse Resp BP Pulse Ox 97.5 F L 79 24 H 158/77 H 100 10/01/20 14:00 10/01/20 15:41 10/01/20 15:41 10/01/20 14:54 10/01/20 14:00 Oxygen Flow Rate (L/min) [3] 2 Oxygen Flow Rate (L/min) [2] 3 Oxygen Flow Rate (L/min) 2 Oxygen Delivery Method [3] Nasal Cannula Oxygen Delivery Method [2] Nasal Cannula Oxygen Delivery Method [1 ( Bi-pap Initial Baseline)] Oxygen Delivery Method Nasal Cannula Weight: 149 lb 14.629 oz Body Mass Index (BMI) 24.2 Finger Stick Blood Glucose 200 Intake and Output for Last 24 Hours 09/29/20 09/30/20 10/01/20 23:59 23:59 23:59 Output Total 1150 / 1150 Balance -1150 / -1150 General: Alert, Oriented x3, Cooperative HEENT: Atraumatic, PERRLA, EOMI, Normocephalic Neck: Supple, No JVD, Negative Carotid Bruits Lungs: Diminished - bilateral bases, Wheezes Cardiovascular: Regular rate, No murmurs Abdomen: Soft, Non Tender, - - ostomy with dark blood in the bag Extremities: No edema, Capillary Refill Less than 3 Seconds Skin: Incision - nicely healed midline incision Musculoskeletal: No Tenderness to Palpation of Joints or Extremities Neurological: Neuro grossly intact Psych/Mental Status: Normal Affect, Appropriate Microbiology Past 72 Hours 10/01/20 15:10 Mucosa - Nose SARS-CoV-2 Antigen (Rapid) - Final Laboratory Results 10/01/20 11:52: WBC 9.2, RBC 2.27 L, Hgb 7.5 L, Hct 23.3 L, MCV 102.6 H, MCH 33.0 H, MCHC 32.2, RDW Std Deviation 60.1 H, RDW Coeff of Eleni 16.0 H, Plt Count 193, MPV 10.3, Immature Gran % (Auto) 1.100 H, Neut % (Auto) 84.3 H, Lymph % (Auto) 5.9 L, [place] % (Auto) 7.3, Eos % (Auto) 1.0, Baso % (Auto) 0.4, Absolute Neuts (auto) 7.8 H, Absolute Lymphs (auto) 0.54 L, Nucleated RBC % 0, Differential Comment , Platelet Estimate ADEQUATE 10/01/20 11:52: PT 15.2 H, INR 1.3, APTT 40.1 H 10/01/20 11:52: Sodium 129 L, Potassium 3.6, Chloride 91 L, Carbon Dioxide 27.0, Anion Gap 11, BUN 53 H, Creatinine 7.07 H, Estim Creat Clear Calc 9.02, Est GFR (MDRD) Af Amer 10 L, Est GFR (MDRD) Non-Af 8 L, BUN/Creatinine Ratio 7.5 L, Glucose 94, Calcium 8.6, Total Bilirubin 0.80, AST 19, ALT 22, Alkaline Phosphatase 154 H, Total Protein 7.4, Albumin 2.7 L, Globulin 4.7 H, Albumin/Globulin Ratio 0.6 L 10/01/20 11:52: Lactic Acid 1.6 10/01/20 11:52: Blood Type A NEGATIVE, Antibody Screen NEGATIVE 10/01/20 13:02: Specimen Type FER, Sample Site R Radial, VBG pH 7.43 H, VBG pO2 23 L, VBG HCO3 27 H, VBG Total CO2 28, VBG O2 Sat (Calc) 42 L, VBG Base Excess 3, POC Mix VBG pCO2 Pt Tmp 41.2, O2 Delivery Device BiPAP, POC PEEP 12, POC Pressure Suppt 18 Assessment/Plan All Active Problems (Last Reviewed 10/01/20 @ 16:03 by Tiara FELIPE, PA-C) Bleeding (Acute) Acute lower GI bleeding (Acute) Anemia due to acute blood loss (Acute) Hyponatremia (Acute) Bilateral pleural effusion (Acute) Fluid overload (Acute) Acute GI bleeding (Acute) Pleural effusion (Acute) Pneumonia (Acute) SBO (small bowel obstruction) (Acute) Contact dermatitis (Acute) s/p fistulogram (Resolved ~09/28/18) history of surgically created arteriovenous fistula (Resolved) Stented coronary artery (Resolved) S/P CABG x 3 (Resolved 01/26/11) Status post peripheral artery angioplasty with insertion of stent (Resolved ~2010) I have been consulted in conjunction with Dr. Lua. He will independently evaluate this patient. Impression: GI bleed, unknown source. He is not currently on blood thinners. No acute abdomen. Plan: Patient was discussed with Dr. Lua. Dr. Lua will plan to perform an Esophagogastroduodenoscopy with possible biopsies, possible cessation of bleeding. Procedure details, risks and benefits have been explained. Patient has had the opportunity to ask and have questions answered. Patient verbally understands and agrees with the plan. Recommend starting PPI IV. Patient has been rapid COVID tested and is negative. Thank you for allowing us to participate in this patient's care. Office Visits / Consults: [id number] IP Consult L3
[2020-10-01 17:09] LABS: Magnesium 2.1 mg/dL (1.6-2.6)
[2020-10-01 17:24] LABS: Hemoglobin 6.9 g/dL (13.0-16.5)
--- NOTE | 2020-10-01 22:39 | DIALYSIS ---
Hd x 3 hours complete. Tolerated tx well. No fluid removed per pt request. Received 2 units of prbc's during tx. Used left arm access. [place] removed post tx and pressure applied x 10 minutes. Hemostasis achieved. Fresh gauze and tape applied. Report was given to RAYMOND Mendoza.
[2020-10-01 23:21] LABS: Hematocrit 26.3 % (40-54); Hemoglobin 8.6 g/dL (13.0-16.5)
[2020-10-01] MEDS: ALPRAZolam 0.5 MG Tablet 1 MG PO (23:49)
[2020-10-01] MEDS: 0.9% Saline Lock 10 ML Syringe IV (23:49)
[2020-10-01] MEDS: DiphenhydrAMINE 25 MG Capsule PO (23:49)
[2020-10-01] MEDS: Atorvastatin Calcium 80 MG Tablet PO (23:50)
[2020-10-01] MEDS: Metoprolol(XL)Succ 50 MG Tablet PO (23:50)
[2020-10-02] VITALS (28 sets, daily range): BP systolic 108–143; BP diastolic 41–95; PULSE 63–88; RESP 12–22; TEMP 36.3–37; O2SAT 95–100; BMI 24.0; BMI 24.2
--- NOTE | 2020-10-02 02:56 | PCS.PANDOC ---
PANDEMIC DOCUMENTATION INITIATED: Date: 10/01/20 Time: 1044
--- NOTE | 2020-10-02 02:57 | CPS ---
pt declined I.S and PEP therapy, says he has too many at home.
[2020-10-02] MEDS: 0.9% Saline Lock 10 ML Syringe IV (05:30)
--- NOTE | 2020-10-02 05:55 | RAD_ITS ---
STUDY: X-RAY CHEST REASON FOR EXAM: Male, 69 years old. Dyspnea and cough TECHNIQUE: Single AP portable view of the chest. COMPARISON: Comparison is made with prior study dated 10/01/2020 at 2:47 PM. FINDINGS: EKG electrodes are seen. Stable small bilateral pleural effusions slightly more prominent on the right side. Stable bibasilar atelectasis. Sternal cerclage wires and vascular clips are present from a prior sternotomy and coronary artery bypass graft procedure (CABG). Normal mediastinum and justyn. Normal visualized pulmonary arteries. There is atherosclerotic calcification of the aortic arch with tortuosity. Normal visualized thoracic spine. Normal visualized ribs, clavicles, and shoulders. There is no demonstrated abnormality of the visualized soft tissue structures of the upper abdomen. RAD/Chest 1 View (Portable) IMPRESSION: Stable examination. Electronically Signed: Deven Hensley, at 9:53 EST , Service support ,
--- NOTE | 2020-10-02 05:55 | EKG12_ITS ---
Test Reason : AM EKG Blood Pressure : / mmHG Vent. Rate : 069 BPM Atrial Rate : 069 BPM P-R Int : 288 ms QRS Dur : 100 ms QT Int : 526 ms P-R-T Axes : 113 069 138 degrees QTc Int : 563 ms Sinus rhythm with 1st degree A-V block Voltage criteria for left ventricular hypertrophy Nonspecific T wave abnormality Prolonged QT Abnormal ECG Confirmed by SANTANA MONTENEGRO, KEISHA ([id number]), editor dictionary ANGELA MTZ ([id number]) on 10/09/2020 9:10:57 AM Referred By: CECIL Confirmed By:KEISHA DILLON MD
[2020-10-02] MEDS: Ipratropium/Albuterol Sulfate 3 ML AMPUL.NEB INHALATION ×3 (07:04→19:35)
[2020-10-02 07:08] LABS: Absolute Lymphocyte Count 0.26 X10^3/uL (0.83-4.51); Absolute Neutrophil Count 2.7 X10^3/uL (2.0-7.7); Hematocrit 24.1 % (40-54); Lymphocyte # 0.26 X10^3/ul (4.0); Lymphocyte % 8.7 % (19-41); Mean Corp Hgb Conc 33.2 g/dL (32-36); Mean Corpuscular Hgb 32.3 pg (27.0-32.0); Mean Corpuscular Volume 97.2 fL (80-94); Mean Platelet Vol. 10.1 fl (6.2-12.0); Monocyte# 0.04 X10^3/uL; Monocyte% 1.3 % (0-10); NRBC Flagged by Analyzer 0 % (0-5); Neutrophil # 2.65 X10^3/uL (2.7-7.7); Neutrophil % 88.7 % (47-70); POSITIVE DIFFERENTIAL YES; POSITIVE MORPHOLOGY YES; Platelet Count 153 K/mm3 (150-450); RBC Distribution Width CV 18.7 % (11.6-14.6); RBC Distribution Width SD 67.1 fl (35.1-43.9); Red Blood Count 2.48 M/mm3 (4.6-6.2)
[2020-10-02 07:14] LABS: Differential Indicated SCAN CRITERIA MET
[2020-10-02 07:54] LABS: ALB/GLOB Ratio 0.7 RATIO (0.9-2.4); AST(SGOT) 16 U/L (15-37); Alanine Aminotransfer ALT/SGPT 18 U/L (16-61); Albumin, Serum 2.3 g/dL (3.2-5.0); Alkaline Phosphatase 130 U/L (45-117); Anion Gap 11 (5-15); BUN 32 mg/dL (7-18); BUN/Creat Ratio 8.1 RATIO (10-20); Calcium,Total 8.1 mg/dL (8.5-10.1); Chloride 99 mmol/L (98-107); Creatinine, Serum 3.94 mg/dL (0.70-1.30); EST Glomerular Filtration Rate 16 mL/min (>60); Est Glom Filt Rate - Afr Amer 20 mL/min (>60); Estimated Creatinine Clearance 16.19 ml/min; Globulin 3.4 g/dL (2.2-4.2); Glucose 125 mg/dL (74-106); Potassium 3.7 mmol/L (3.5-5.1); Protein, Total 5.7 g/dL (6.4-8.2); Sodium Level 138 mmol/L (136-145)
[2020-10-02 08:44] LABS: Hepatitis B Surface Antigen Non-Reactive (Nonreactive)
--- NOTE | 2020-10-02 10:30 | EGD_PTH ---
PATIENT: ANGELINA FORREST Jr. LOC: [facility] U#:[id number] AGE/SX: 69/M ROOM: [facility] RE10/01/[address]: Dr. Victor M Boyd MD : 1950 BED: 1 DIS: 10/03/2020 SPEC #: [id number] RECD: 10/02/20 13:22 STATUS: NILAM REQ #: [id number] SHANIA: 10/02/20 10:[address]: Demian Lua DEPT: SURGICAL PATHOLOGY RECD BY: Alyse Bradshaw ENTERED: 10/03/20 08:10 SP TYPE: EGD BIOPSY OTHR DR: MD Dr. Caleb Gomez MD Dr. Prakash Chand, MD Dr. Robert D Cebul, MD Debra Lewis, ARMEN-C Tissues: A - Duodenum, NOS B - Gastric mucous membrane C - Esophagus, NOS Procedures: Special Stain Group II Special Stain Group I Surgery Specimen Level IV GMS Stain (control) Alcian Blue/PAS (control) Comments: @ Ordering doctor for SUIV edited from to @ by RANCHO at 10/03/20 09 @ Submitting doctor edited from to @ by RANCHO at 10/03/20 09 HEADER OPERATION[place] [place] DIAGNOSIS: GI bleed TISSUE SUBMITTED: A - Biopsy of duodenal bulb, B - Antrum biopsy for H. pylori and path, C - Distal esophagus biopsy MICROSCOPIC DIAGNOSIS A. Duodenal bulb, biopsy: Fragments of duodenal mucosa with Afshan gland hyperplasia and gastric metaplasia. B. Antrum, biopsy: Mild gastritis. See microscopic description and comment. C. Distal esophagus, biopsy: Fragments of gastroesophageal mucosa with chronic inflammation. Intestinal metaplasia (goblet cell metaplasia) not identified. Detached fragments of squamous epithelium with acute inflammation, bacterial colonization and positive for fungal organisms (yeast and pseudohyphae) consistent with Deanna species; matched control is appropriate. See comment. SJ:patrick 10/06/20 COMMENT B. The results of immunohistochemistry for Helicobacter pylori will be reported separately ([id number]). C. Alcian blue/PAS stain with matched control is used in the evaluation of the specimen. Increased number of eosinophils consistent with eosinophilic esophagitis are not seen. MICROSCOPIC DESCRIPTION Slides are reviewed. B. The specimen shows fragments of gastric mucosa with chronic inflammatory cell infiltrates in the lamina propria consisting of lymphocytes and plasma cells, consistent with mild chronic gastritis. GROSS DESCRIPTION A - Received in fixative is one container labeled with the patient's name and designated duodenal bulb. The specimen consists of two irregular fragments of light ramires soft tissue that in aggregate measure 0.8 x 0.3 x 0.1 cm. The specimen is totally submitted in one cassette. B - Received in fixative is one container labeled with the patient's name and designated antrum biopsy. The specimen consists of one irregular fragment of light ramires soft tissue that measures 0.3 x 0.2 x 0.1 cm. The specimen is totally submitted in one cassette. C - Received in fixative is one container labeled with the patient's name and designated distal esophagus biopsy. The specimen consists of multiple irregular fragments of light ramires soft tissue that in aggregate measure 1.5 x 0.3 x 0.1 cm. The specimen is totally submitted in one cassette. / SJ:patrick 10/03/20 TC:3 [facility]: [id number] x3, 10235, 16631
--- NOTE | 2020-10-02 10:30 | IMM_PTH ---
PATIENT: ANGELINA FORREST Jr. LOC: [facility] U#:[id number] AGE/SX: 69/M [place] [facility] [place]: Dr. Victor M Boyd MD : 1950 BED: 1 DIS: 10/03/2020 SPEC #: [id number] RECD: 10/03/20 09:09 STATUS: NILAM REQ #: [id number] SHANIA: 10/02/20 10:[address]: Demian Lua DEPT: IMMUNOHISTOCHEMISTRY RECD BY: Lucy Acosta ENTERED: 10/03/20 09:10 SP TYPE: IMMUNO OTHR DR: MD Dr. Caleb Gomez MD Dr. Prakash Chand, MD Debra Lewis, DRIVABILITY TECHNICIAN-C Tissues: B - Stomach, NOS Procedures: H Pylori (initial) PHYSICIAN & INSTITUTION [place] [id number] SPECIMEN INFORMATION: Tissue Source: B - Antrum biopsy Clinical Info: GI bleed Specimen Number: [id number] CPT code: 30114 METHODOLOGY: Deparaffinized sections of prefer/formalin-fixed tissue or PAP/DQ stained slides are incubated with monoclonal/polyclonal antibodies/oligonucleotide probes. Localization is made via biotin free immunoperoxidase method. Appropriate controls are performed and reacted as expected. Results on target cell population are indicated in the following table: RESULTS: ANTIBODY / CLONE RESULT Block B H Pylori (polyclonal) negative These tests were developed and their performance characteristics determined by [facility]. They may not have been cleared or approved by the U.S. Food and Drug Administration. The FDA has determined that such clearance or approval is not necessary. INTERPRETATION: B. Antrum, biopsy: Negative for Helicobacter pylori organisms. SJ:patrick 10/06/20
--- NOTE | 2020-10-02 10:54 | OP.EGD_ITS ---
Patient Name: Kelvin Gimenez Procedure Date: 10/02/2020 10:13 AM Date of : 1950 Age: 69 Procedure: Upper GI endoscopy Indications: Iron deficiency anemia secondary to chronic blood loss Providers: Demian Lua MD Medicines: See the Anesthesia note for documentation of the administered medications Complications: No immediate complications. Procedure: Pre-Anesthesia Assessment: - Prior to the procedure, a History and Physical was performed, and patient medications and allergies were reviewed. The patient's tolerance of previous anesthesia was also reviewed. The risks and benefits of the procedure and the sedation options and risks were discussed with the patient. All questions were answered, and informed consent was obtained. Prior Anticoagulants: The patient has taken no previous anticoagulant or antiplatelet agents. ASA Grade Assessment: III - A patient with severe systemic disease. After reviewing the risks and benefits, the patient was deemed in satisfactory condition to undergo the procedure. After obtaining informed consent, the endoscope was passed under direct vision. Throughout the procedure, the patient's blood pressure, pulse, and oxygen saturations were monitored continuously. The gastroscope was introduced through the mouth, and advanced to the second part of duodenum. The upper GI endoscopy was accomplished without difficulty. The patient tolerated the procedure well. Scope In: 10:35:48 AM Scope Out: 10:42:45 AM Total Procedure Duration Time 0 hours 6 minutes 57 seconds Findings: LA Grade A (one or more mucosal breaks less than 5 mm, not extending between tops of 2 mucosal folds) esophagitis with no bleeding was found 41 cm from the incisors. Biopsies were taken with a cold forceps for histology. A mild Schatzki ring was found at the gastroesophageal junction. A small hiatal hernia was present. Diffuse mildly erythematous mucosa without bleeding was found in the gastric antrum. Biopsies were taken with a cold forceps for histology. Diffuse nodular mucosa was found in the duodenal bulb. Biopsies were taken with a cold forceps for histology. Impression: - LA Grade A reflux esophagitis. Biopsied. - Mild Schatzki ring. - Small hiatal hernia. - Erythematous mucosa in the antrum. Biopsied. - Nodular mucosa in the duodenal bulb. Biopsied. Recommendation: - [facility]. - Resume previous diet. - Continue present medications. - Telephone my office for pathology results in 1 week. No active bleeding, nodular duodenal bulb unusual but not bleeding Consider possible bleeding from small bowel AVMs; if persists, recommend tertiary referral Procedure Code(s): --- Professional --- 72693, Esophagogastroduodenoscopy, flexible, transoral; with biopsy, single or multiple Diagnosis Code(s): --- Professional --- K21.0, Gastro-esophageal reflux disease with esophagitis K22.2, Esophageal obstruction K44.9, Diaphragmatic hernia without obstruction or gangrene K31.89, Other diseases of stomach and duodenum D50.0, Iron deficiency anemia secondary to blood loss (chronic) CPT copyright 2017 [employer]. All rights reserved. The codes documented in this report are preliminary and upon illustrator set review may be revised to meet current compliance requirements. Demian Lua MD 10/02/2020 10:53:26 AM This report has been signed electronically. Number of Addenda: 0 Note Initiated On: 10/02/2020 10:13 AM
--- NOTE | 2020-10-02 10:54 | OP.CCLET_ITS ---
10/02/2020 Tania Berger Re : Upper GI endoscopy procedure for Kelvin Juarezr Ab This procedure was performed on September. My impressions and recommendations are as follows: Impressions : - LA Grade A reflux esophagitis. Biopsied. - Mild Schatzki ring. - Small hiatal hernia. - Erythematous mucosa in the antrum. Biopsied. - Nodular mucosa in the duodenal bulb. Biopsied. Recommendations : - [facility]. - Resume previous diet. - Continue present medications. - Telephone my office for pathology results in 1 week. No active bleeding, nodular duodenal bulb unusual but not bleeding Consider possible bleeding from small bowel AVMs; if persists, recommend tertiary referral My findings are described in the full procedure note, which is enclosed. If I can be of further assistance, please feel free to contact me at Doctor phone number(s): Work: . Sincerely, Demian Lua MD 10/02/2020 10:53:26 AM This report has been signed electronically.
--- NOTE | 2020-10-02 11:39 | PCM.CONS.R ---
Consultation - Renal 10/02/20 PCP/ Referring MD: Requesting physician: [] Primary care physician: SEUN Poe Reason for Consultation:: ESRD - History of Present Illness History of Present Illness: The patient is a 69 year old M with past medical history of chronic anemia coronary artery disease s/p PCI COPD BPH hypertension dyslipidemia PAD s/p surgeries CAD s/p CABG x3 and PCI with history of myocardial infarction ESRD on hemodialysis obstructive sleep apnea anxiety depression chronic atrial fibrillation not anticoagulated secondary to previous GI bleed who presented to the emergency room yesterday with a chief complaint of worsening dyspnea orthopnea. He had an thoracentesis on September 26 with 1 L fluid removal. He was noted to have bloody maroon stool in the colostomy bag concerning for GI bleed. He underwent EGD this morning. He denies chest pain shortness of breath abdominal pain nausea vomiting diarrhea. There is no pain or discharge in the left arm where he has the AV fistula. Denies fever chills headache. He has no other complaints. - Allergies Allergies: Allergies irbesartan [From Avapro] Allergy (Severe, Verified 10/01/20 11:20) Blisters zolpidem [From Ambien] Adverse Reaction (Severe, Verified 10/01/20 11:20) made me go crazy, memory loss amoxicillin Adverse Reaction (Intermediate, Verified 10/01/20 11:20) PASSES BLOOD IN STOOL TOLERATES ZOSYN PASSES BLOOD IN STOOL gabapentin Adverse Reaction (Unknown, Verified 10/01/20 11:20) emotional metronidazole [From Flagyl] Adverse Reaction (Verified 10/01/20 11:20) pt states he got palpitations and nose bleed. pt states he got palpitations and nose bleed. - Current Medications Current Medications: Current Medications Acetaminophen (Acetaminophen 325 Mg Tablet) 650 mg PO Q6H PRN PRN PRN Reason: Pain Score 1-10/Temp > 100.7 F Albuterol Sulfate (Albuterol 2.5 Mg/3 Ml Vial.Neb.) 2.5 mg INHALATION Q2H PRN PRN PRN Reason: Dyspnea, wheezing Albuterol/Ipratropium (Ipratropium/Albuterol Sulfate 3 Ml Ampul.Neb) 3 ml INHALATION Q4HWA.RT JAIME Last Admin: 10/02/20 07:04 Dose: 3 ml Documented by: Alprazolam (Alprazolam 0.5 Mg Tablet) 1 mg PO BID [facility] Last Admin: 10/01/20 23:49 Dose: 1 mg Documented by: Atorvastatin Calcium (Atorvastatin Calcium 80 Mg Tablet) 80 mg PO QHS [facility] Last Admin: 10/01/20 23:50 Dose: 80 mg Documented by: Diphenhydramine HCl (Diphenhydramine 50 Mg/Ml Syringe) 25 mg IV Q6H PRN PRN PRN Reason: for itching Furosemide (Furosemide 100 Mg/10 Ml Vial) 60 mg IV Q8 [facility] Last Admin: 10/02/20 05:31 Dose: Not Given Documented by: Hydralazine HCl (Hydralazine 20 Mg/Ml Vial) 10 mg IV Q4H PRN PRN PRN Reason: SBP > 160 Hydroxyzine Pamoate (Hydroxyzine Estrellita 25 Mg Capsule) 25 mg PO 4X/DAY PRN PRN PRN Reason: pruritits Pantoprazole Sodium 40 mg/ (Sodium Chloride) 110 mls @ 330 mls/hr IV Q12 [facility] Last Infusion: 10/02/20 00:09 Dose: Infused Documented by: Sodium Chloride () 250 mls @ 15 mls/hr IV .[id number] PRN PRN Reason: Saline Flush Sodium Chloride () 250 mls @ 15 mls/hr IV .[id number] PRN PRN Reason: Additional IVPB Infusion Methylprednisolone (Methylprednisolone 40 Mg/Ml Vial) 40 mg IV Q8 [facility] Last Admin: 10/02/20 05:30 Dose: 40 mg Documented by: Metoprolol Succinate (Metoprolol(Xl)Succ 50 Mg Tablet) 50 mg PO BID [facility] Last Admin: 10/01/20 23:50 Dose: 50 mg Documented by: Morphine Sulfate (Morphine 2 Mg/Ml Syringe) 2 mg IV Q3H PRN PRN PRN Reason: Pain Score 6-10 Nitroglycerin (Nitroglycerin (Inpatient Use) 0.4 Mg Tab.Subl) 0.4 mg SUBLINGUAL Q5M PRN PRN Reason: CARDIAC/CHEST PAIN Ondansetron HCl (Ondansetron 4 Mg/2 Ml Vial) 4 mg IV Q8H PRN PRN PRN Reason: NAUSEA/VOMITING Prochlorperazine Edisylate (Prochlorperazine 10 Mg/2 Ml Vial) 5 mg IV Q4H PRN PRN PRN Reason: Breakthrough Nausea/Vomiting Sodium Chloride (0.9% Saline Lock 10 Ml Syringe) 10 - 40 ml IV UD PRN PRN Reason: SALINE FLUSH Last Admin: 10/02/20 05:30 Dose: 10 ml Documented by: Sucralfate (Sucralfate 1 Gm Tablet) 1 gm PO BIDAC [facility]IME Last Admin: 10/02/20 05:31 Dose: Not Given Documented by: - Past Medical History Past Medical History (Chronic Problems): Chronic Problems (Last Reviewed 10/01/20 @ 16:02 by Tiara FELIPE, PA-C) ESRD (end stage renal disease) on dialysis (Chronic) Transudative pleural effusion (Chronic) Chronic atrial fibrillation (Chronic) Problem with dialysis access (Chronic) RAVEN (obstructive sleep apnea) (Chronic) AHI 42.6 ESRD (end stage renal disease) (Chronic) History of non-ST elevation myocardial infarction (NSTEMI) (Chronic 01/21/11) Atherosclerotic heart disease of circle coronary artery without angina pectoris (Chronic) 2003, JASON to circumflex ; 10/10/[address] [facility] to [facility], total of 5 bare metal stents to RCA; CABG X 3 vessels @ [facility] 01/31/2011 (critical left main and restenosis of RCA stents) Diastolic CHF (Chronic) HLD (hyperlipidemia) (Chronic) HTN (hypertension) (Chronic) PAD (peripheral artery disease) (Chronic) COPD (chronic obstructive pulmonary disease) (Chronic) Tobacco dependence (Chronic) Anemia (Chronic) BPH (benign prostatic hyperplasia) (Chronic) - Past Surgical History Surgical History: coronary bypass surgery, tonsillectomy, - - CABG x3, multiple PCI coronary arteries, right common iliac angioplasty and stenting, aVF, tonsillectomy, multiple endoscopies with intervention, end ileostomy creation following right and transverse colectomy for ischemic colitis - Social History Smoking Status: Current some day smoker Alcohol: Rare Drugs: None - Family History Maternal Family History: Family History (Last Reviewed 10/01/20 @ 16:05 by Tiara FELIPE, PA-C) Father CAD (coronary artery disease) Hypertension Kidney disease CVA (cerebral vascular accident) Other Cancer History Items: Heart Disease Paternal Family History: Family History (Last Reviewed 10/01/20 @ 16:05 by Tiara FELIPE PA-C) Father CAD (coronary artery disease) Hypertension Kidney disease CVA (cerebral vascular accident) Other Cancer History Items: Heart Disease, Hypertension, Renal Disease Patient Problems: Active and Suspected Problems (Last Reviewed 10/01/20 @ 16:02 by Tiara FELIPE PA-C) Acute on chronic respiratory failure with hypoxia and hypercapnia (Acute) Bleeding (Acute) Acute lower GI bleeding (Acute) Anemia due to acute blood loss (Acute) Hyponatremia (Acute) Bilateral pleural effusion (Acute) Fluid overload (Acute) COPD exacerbation (Acute) Acute GI bleeding (Acute) Pleural effusion (Acute) - Physical Exam Vitals/I&O's: Vital Signs Temp Pulse Resp BP Pulse Ox 98.0 F 70 18 127/48 H 97 10/02/20 11:06 10/02/20 11:06 10/02/20 11:06 10/02/20 11:06 10/02/20 11:06 Oxygen Flow Rate (L/min) [3] 2 Oxygen Flow Rate (L/min) [2] 3 Oxygen Flow Rate (L/min) 2 Oxygen Delivery Method [3] Nasal Cannula Oxygen Delivery Method [2] Nasal Cannula Oxygen Delivery Method [1 ( Bi-pap Initial Baseline)] Oxygen Delivery Method Room Air Weight: 67.585 kg Body Mass Index (BMI) 24.0 Finger Stick Blood Glucose 200 Intake and Output for Last 24 Hours 09/30/20 10/01/20 10/02/20 23:59 23:59 23:59 Intake Total 400 / 450 160 / 160 Output Total 1150 / 1300 200 / 200 Balance -750 / -850 -40 / -40 General: Alert, Cooperative HEENT: Atraumatic, Normocephalic Oral: Moist Mucosa Neck: Supple, Trachea Midline Lungs: Clear to auscultation, Normal air movement Cardiovascular: Normal S1 Abdomen: Bowel Sounds Present, Soft, - - Ostomy bag with brown fecal material. Nonbloody Microbiology Past 72 Hours 10/01/20 18:02 Interface Orders Respiratory Panel (PCR) - Final 10/01/20 15:10 Mucosa - Nose SARS-CoV-2 Antigen (Rapid) - Final Laboratory Results 10/01/20 11:50: Crossmatch See Detail 10/01/20 11:52: WBC 9.2, RBC 2.27 L, Hgb 7.5 L, Hct 23.3 L, MCV 102.6 H, MCH 33.0 H, MCHC 32.2, RDW Std Deviation 60.1 H, RDW Coeff of Eleni 16.0 H, Plt Count 193, MPV 10.3, Immature Gran % (Auto) 1.100 H, Neut % (Auto) 84.3 H, Lymph % (Auto) 5.9 L, [place] % (Auto) 7.3, Eos % (Auto) 1.0, Baso % (Auto) 0.4, Absolute Neuts (auto) 7.8 H, Absolute Lymphs (auto) 0.54 L, Nucleated RBC % 0, Differential Comment , Platelet Estimate ADEQUATE 10/01/20 11:52: PT 15.2 H, INR 1.3, APTT 40.1 H 10/01/20 11:52: Sodium 129 L, Potassium 3.6, Chloride 91 L, Carbon Dioxide 27.0, Anion Gap 11, BUN 53 H, Creatinine 7.07 H, Estim Creat Clear Calc 9.02, Est GFR (MDRD) Af Amer 10 L, Est GFR (MDRD) Non-Af 8 L, BUN/Creatinine Ratio 7.5 L, Glucose 94, Calcium 8.6, Total Bilirubin 0.80, AST 19, ALT 22, Alkaline Phosphatase 154 H, Total Protein 7.4, Albumin 2.7 L, Globulin 4.7 H, Albumin/Globulin Ratio 0.6 L 10/01/20 11:52: Lactic Acid 1.6 10/01/20 11:52: Blood Type A NEGATIVE, Antibody Screen NEGATIVE 10/01/20 11:52: Magnesium 2.1 10/01/20 13:02: Specimen Type FER, Sample Site R Radial, VBG pH 7.43 H, VBG pO2 23 L, VBG HCO3 27 H, VBG Total CO2 28, VBG O2 Sat (Calc) 42 L, VBG Base Excess 3, POC Mix VBG pCO2 Pt Tmp 41.2, O2 Delivery Device BiPAP, POC PEEP 12, POC Pressure Suppt 18 10/01/20 17:14: Hgb 6.9 L, Hct 21.0 L 10/01/20 17:14: Troponin I 0.037 10/01/20 19:40: Hep Bs Antigen Non-Reactive 10/01/20 20:23: Troponin I 0.053 H 10/01/20 23:12: Hgb 8.6 L, Hct 26.3 L 10/01/20 23:12: Troponin I 0.041 10/02/20 06:50: WBC 3.0 L, RBC 2.48 L, Hgb 8.0 L, Hct 24.1 L, MCV 97.2 H D, MCH 32.3 H, MCHC 33.2, RDW Std Deviation 67.1 H, RDW Coeff of Eleni 18.7 H, Plt Count 153, MPV 10.1, Immature Gran % (Auto) 1.300 H, Neut % (Auto) 88.7 H, Lymph % (Auto) 8.7 L, [place] % (Auto) 1.3, Eos % (Auto) 0.0, Baso % (Auto) 0.0, Absolute Neuts (auto) 2.7, Absolute Lymphs (auto) 0.26 L, Nucleated RBC % 0, Diff Path Review February10/02/20 06:50: Sodium 138, Potassium 3.7, Chloride 99, Carbon Dioxide 28.0, Anion Gap 11, BUN 32 H, Creatinine 3.94 H, Estim Creat Clear Calc 16.19, Est GFR (MDRD) Af Amer 20 L, Est GFR (MDRD) Non-Af 16 L, BUN/Creatinine Ratio 8.1 L, Glucose 125 H, Calcium 8.1 L, Total Bilirubin 1.00, AST 16, ALT 18, Alkaline Phosphatase 130 H, Total Protein 5.7 L, Albumin 2.3 L, Globulin 3.4, Albumin/Globulin Ratio 0.7 L Current Medications Acetaminophen (Acetaminophen 325 Mg Tablet) 650 mg PO Q6H PRN PRN PRN Reason: Pain Score 1-10/Temp > 100.7 F Albuterol Sulfate (Albuterol 2.5 Mg/3 Ml Vial.Neb.) 2.5 mg INHALATION Q2H PRN PRN PRN Reason: Dyspnea, wheezing Albuterol/Ipratropium (Ipratropium/Albuterol Sulfate 3 Ml Ampul.Neb) 3 ml INHALATION Q4HWA.RT JAIME Last Admin: 10/02/20 07:04 Dose: 3 ml Documented by: Alprazolam (Alprazolam 0.5 Mg Tablet) 1 mg PO BID [facility] Last Admin: 10/01/20 23:49 Dose: 1 mg Documented by: Atorvastatin Calcium (Atorvastatin Calcium 80 Mg Tablet) 80 mg PO QHS [facility] Last Admin: 10/01/20 23:50 Dose: 80 mg Documented by: Diphenhydramine HCl (Diphenhydramine 50 Mg/Ml Syringe) 25 mg IV Q6H PRN PRN PRN Reason: for itching Furosemide (Furosemide 100 Mg/10 Ml Vial) 60 mg IV Q8 [facility] Last Admin: 10/02/20 05:31 Dose: Not Given Documented by: Hydralazine HCl (Hydralazine 20 Mg/Ml Vial) 10 mg IV Q4H PRN PRN PRN Reason: SBP > 160 Hydroxyzine Pamoate (Hydroxyzine Estrellita 25 Mg Capsule) 25 mg PO 4X/DAY PRN PRN PRN Reason: pruritits Pantoprazole Sodium 40 mg/ (Sodium Chloride) 110 mls @ 330 mls/hr IV Q12 [facility] Last Infusion: 10/02/20 00:09 Dose: Infused Documented by: Sodium Chloride () 250 mls @ 15 mls/hr IV .[id number] PRN PRN Reason: Saline Flush Sodium Chloride () 250 mls @ 15 mls/hr IV .[id number] PRN PRN Reason: Additional IVPB Infusion Methylprednisolone (Methylprednisolone 40 Mg/Ml Vial) 40 mg IV Q8 [facility] Last Admin: 10/02/20 05:30 Dose: 40 mg Documented by: Metoprolol Succinate (Metoprolol(Xl)Succ 50 Mg Tablet) 50 mg PO BID [facility] Last Admin: 10/01/20 23:50 Dose: 50 mg Documented by: Morphine Sulfate (Morphine 2 Mg/Ml Syringe) 2 mg IV Q3H PRN PRN PRN Reason: Pain Score 6-10 Nitroglycerin (Nitroglycerin (Inpatient Use) 0.4 Mg Tab.Subl) 0.4 mg SUBLINGUAL Q5M PRN PRN Reason: CARDIAC/CHEST PAIN Ondansetron HCl (Ondansetron 4 Mg/2 Ml Vial) 4 mg IV Q8H PRN PRN PRN Reason: NAUSEA/VOMITING Prochlorperazine Edisylate (Prochlorperazine 10 Mg/2 Ml Vial) 5 mg IV Q4H PRN PRN PRN Reason: Breakthrough Nausea/Vomiting Sodium Chloride (0.9% Saline Lock 10 Ml Syringe) 10 - 40 ml IV UD PRN PRN Reason: SALINE FLUSH Last Admin: 10/02/20 05:30 Dose: 10 ml Documented by: Sucralfate (Sucralfate 1 Gm Tablet) 1 gm PO BIDAC [facility] Last Admin: 10/02/20 05:31 Dose: Not Given Documented by: Assessment/Plan All Active Problems (Last Reviewed 10/01/20 @ 16:03 by Tiara FELIPE, PA-C) Acute on chronic respiratory failure with hypoxia and hypercapnia (Acute) Bleeding (Acute) Acute lower GI bleeding (Acute) Anemia due to acute blood loss (Acute) Hyponatremia (Acute) Bilateral pleural effusion (Acute) Fluid overload (Acute) COPD exacerbation (Acute) Acute GI bleeding (Acute) Pleural effusion (Acute) Pneumonia (Acute) SBO (small bowel obstruction) (Acute) Contact dermatitis (Acute) s/p fistulogram (Resolved ~09/28/18) history of surgically created arteriovenous fistula (Resolved) Stented coronary artery (Resolved) S/P CABG x 3 (Resolved 01/26/11) Status post peripheral artery angioplasty with insertion of stent (Resolved ~2010) ESRD dialysis tomorrow. At home he does dialysis every other day. He had dialysis last evening. Anemia multifactorial s/p EGD. Epogen with dialysis if he stays here until tomorrow. Monitor hemoglobin. Hypertension continue medications blood pressure is controlled. 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 GI bleed/misc per primary.
--- NOTE | 2020-10-02 11:44 | NURSING ---
[facility]SA late d/t pt being off floor for procedure.
--- NOTE | 2020-10-02 11:45 | CASEMGMT ---
SW called [facility] to see if patient was active with them. He is not active with Palliative Care. Elaine BARTH MSW
--- NOTE | 2020-10-02 12:34 | PN_ITS ---
Progress Note At the completion of the patient's esophagogastroduodenoscopy he reports that 1 day prior to admission he had a very significant nosebleed. He wonders whether he could have swallowed blood change in the appearance of the material within his stomal bag. That could also have affected his hemoglobin and hematocrit. Currently today the stool within his stomal bag is brown. There is no active source of bleeding identified in the esophagus stomach or duodenum. There was some nodularity of the duodenal bulb mucosa with pathology pending. If he actually has further GI bleeding then likely referral to a tertiary institution for inspection of the small bowel for bleeding AVMs would be pertinent. He does report a previous history of transfer to [facility] for treatment of this problem. Demian Lua M.D., F.A.C.S. STROKE Vital Signs/Narrative: Vital Signs Temp Pulse Resp BP Pulse Ox 10/02/20 11:40 97.7 F L 72 18 130/57 H 95 10/02/20 11:06 98.0 F 70 18 127/48 H 97 10/02/20 11:00 70 18 137/49 H 100 10/02/20 10:55 70 18 108/95 H 100 10/02/20 10:50 74 18 125/41 H 100 10/02/20 10:48 97.3 F L 70 16 125/41 H 100 10/02/20 10:01 98.3 F 72 20 H 138/68 H 97
--- NOTE | 2020-10-02 13:14 | PCM.PROGNOTE ---
<AldoHaven SEAT MAKER - Last Filed: 10/02/20 13:30> Patient Problems: Active and Suspected Problems (Last Reviewed 10/01/20 @ 16:02 by Tiara FELIPE PA-C) Acute on chronic respiratory failure with hypoxia and hypercapnia (Acute) Bleeding (Acute) Acute lower GI bleeding (Acute) Anemia due to acute blood loss (Acute) Hyponatremia (Acute) Bilateral pleural effusion (Acute) Fluid overload (Acute) COPD exacerbation (Acute) Acute GI bleeding (Acute) Pleural effusion (Acute) Subjective: Patient seen and examined. Continues to have wet cough. Denies fever, chills. Denies sputum production. States breathing is overall improved. Denies other symptoms or complaints. - Physical Exam Vitals/I&O's: Vital Signs Temp Pulse Resp BP Pulse Ox 97.7 F L 72 18 130/57 H 95 10/02/20 11:40 10/02/20 11:40 10/02/20 11:40 10/02/20 11:40 10/02/20 11:40 Oxygen Flow Rate (L/min) [3] 2 Oxygen Flow Rate (L/min) [2] 3 Oxygen Flow Rate (L/min) 2 Oxygen Delivery Method [3] Nasal Cannula Oxygen Delivery Method [2] Nasal Cannula Oxygen Delivery Method [1 ( Bi-pap Initial Baseline)] Oxygen Delivery Method Nasal Cannula Weight: 149 lb Body Mass Index (BMI) 24.0 Finger Stick Blood Glucose 200 Intake and Output for Last 24 Hours 09/30/20 10/01/20 10/02/20 23:59 23:59 23:59 Intake Total 400 / 450 160 / 160 Output Total 1150 / 1300 200 / 200 Balance -750 / -850 -40 / -40 General: Alert, Oriented x3, Cooperative HEENT: Atraumatic, PERRLA, EOMI, Normocephalic Neck: Supple, No JVD, Negative Carotid Bruits Lungs: Diminished, Rales Cardiovascular: Regular rate, No murmurs Abdomen: Bowel Sounds Present, Soft, Non Tender, Non-Distended, - - Ostomy intact Extremities: No clubbing, No cyanosis, No edema, Capillary Refill Less than 3 Seconds Skin: No rashes, No breakdown Musculoskeletal: No Tenderness to Palpation of Joints or Extremities Neurological: Cranial nerves II-XII grossly intact, Neuro grossly intact Psych/Mental Status: Normal Affect, Appropriate Microbiology Past 72 Hours 10/01/20 19:00 Sputum, Expectorated/Coughed Respiratory Culture - Preliminary GNR lactose sales facilitator Gram negative darin 10/01/20 18:02 Interface Orders Respiratory Panel (PCR) - Final 10/01/20 15:10 Mucosa - Nose SARS-CoV-2 Antigen (Rapid) - Final Laboratory Results 10/01/20 11:50: Crossmatch See Detail 10/01/20 11:52: Magnesium 2.1 10/01/20 17:14: Hgb 6.9 L, Hct 21.0 L 10/01/20 17:14: Troponin I 0.037 10/01/20 19:40: Hep Bs Antigen Non-Reactive 10/01/20 20:23: Troponin I 0.053 H 10/01/20 23:12: Hgb 8.6 L, Hct 26.3 L 10/01/20 23:12: Troponin I 0.041 10/02/20 06:50: WBC 3.0 L, RBC 2.48 L, Hgb 8.0 L, Hct 24.1 L, MCV 97.2 H D, MCH 32.3 H, MCHC 33.2, RDW Std Deviation 67.1 H, RDW Coeff of Eleni 18.7 H, Plt Count 153, MPV 10.1, Immature Gran % (Auto) 1.300 H, Neut % (Auto) 88.7 H, Lymph % (Auto) 8.7 L, [place] % (Auto) 1.3, Eos % (Auto) 0.0, Baso % (Auto) 0.0, Absolute Neuts (auto) 2.7, Absolute Lymphs (auto) 0.26 L, Nucleated RBC % 0, Diff Path Review February10/02/20 06:50: Sodium 138, Potassium 3.7, Chloride 99, Carbon Dioxide 28.0, Anion Gap 11, BUN 32 H, Creatinine 3.94 H, Estim Creat Clear Calc 16.19, Est GFR (MDRD) Af Amer 20 L, Est GFR (MDRD) Non-Af 16 L, BUN/Creatinine Ratio 8.1 L, Glucose 125 H, Calcium 8.1 L, Total Bilirubin 1.00, AST 16, ALT 18, Alkaline Phosphatase 130 H, Total Protein 5.7 L, Albumin 2.3 L, Globulin 3.4, Albumin/Globulin Ratio 0.7 L Current Medications Acetaminophen (Acetaminophen 325 Mg Tablet) 650 mg PO Q6H PRN PRN PRN Reason: Pain Score 1-10/Temp > 100.7 F Albuterol Sulfate (Albuterol 2.5 Mg/3 Ml Vial.Neb.) 2.5 mg INHALATION Q2H PRN PRN PRN Reason: Dyspnea, wheezing Albuterol/Ipratropium (Ipratropium/Albuterol Sulfate 3 Ml Ampul.Neb) 3 ml INHALATION Q4HWA.RT [facility] Last Admin: 10/02/20 07:04 Dose: 3 ml Documented by: Alprazolam (Alprazolam 0.5 Mg Tablet) 1 mg PO BID [facility] Last Admin: 10/01/20 23:49 Dose: 1 mg Documented by: Atorvastatin Calcium (Atorvastatin Calcium 80 Mg Tablet) 80 mg PO QHS [facility] Last Admin: 10/01/20 23:50 Dose: 80 mg Documented by: Diphenhydramine HCl (Diphenhydramine 50 Mg/Ml Syringe) 25 mg IV Q6H PRN PRN PRN Reason: for itching Furosemide (Furosemide 100 Mg/10 Ml Vial) 60 mg IV Q8 [facility] Last Admin: 10/02/20 05:31 Dose: Not Given Documented by: Hydralazine HCl (Hydralazine 20 Mg/Ml Vial) 10 mg IV Q4H PRN PRN PRN Reason: SBP > 160 Hydroxyzine Pamoate (Hydroxyzine Estrellita 25 Mg Capsule) 25 mg PO 4X/DAY PRN PRN PRN Reason: pruritits Pantoprazole Sodium 40 mg/ (Sodium Chloride) 110 mls @ 330 mls/hr IV Q12 [facility] Last Infusion: 10/02/20 00:09 Dose: Infused Documented by: Sodium Chloride () 250 mls @ 15 mls/hr IV .[id number] PRN PRN Reason: Saline Flush Sodium Chloride () 250 mls @ 15 mls/hr IV .[id number] PRN PRN Reason: Additional IVPB Infusion Methylprednisolone (Methylprednisolone 40 Mg/Ml Vial) 40 mg IV Q8 [facility] Last Admin: 10/02/20 05:30 Dose: 40 mg Documented by: Metoprolol Succinate (Metoprolol(Xl)Succ 50 Mg Tablet) 50 mg PO BID [facility] Last Admin: 10/01/20 23:50 Dose: 50 mg Documented by: Morphine Sulfate (Morphine 2 Mg/Ml Syringe) 2 mg IV Q3H PRN PRN PRN Reason: Pain Score 6-10 Nitroglycerin (Nitroglycerin (Inpatient Use) 0.4 Mg Tab.Subl) 0.4 mg SUBLINGUAL Q5M PRN PRN Reason: CARDIAC/CHEST PAIN Ondansetron HCl (Ondansetron 4 Mg/2 Ml Vial) 4 mg IV Q8H PRN PRN PRN Reason: NAUSEA/VOMITING Prochlorperazine Edisylate (Prochlorperazine 10 Mg/2 Ml Vial) 5 mg IV Q4H PRN PRN PRN Reason: Breakthrough Nausea/Vomiting Sodium Chloride (0.9% Saline Lock 10 Ml Syringe) 10 - 40 ml IV UD PRN PRN Reason: SALINE FLUSH Last Admin: 10/02/20 05:30 Dose: 10 ml Documented by: Sucralfate (Sucralfate 1 Gm Tablet) 1 gm PO BIDAC [facility] Last Admin: 10/02/20 05:31 Dose: Not Given Documented by: Medical Necessity - Tobacco Use Smoking Status: Current some day smoker Tobacco Use: Cigarettes Assessment/Plan All Active Problems (Last Reviewed 10/01/20 @ 16:03 by Tiara FELIPE, PA-C) Acute on chronic respiratory failure with hypoxia and hypercapnia (Acute) Bleeding (Acute) Acute lower GI bleeding (Acute) Anemia due to acute blood loss (Acute) Hyponatremia (Acute) Bilateral pleural effusion (Acute) Fluid overload (Acute) COPD exacerbation (Acute) Acute GI bleeding (Acute) Pleural effusion (Acute) Pneumonia (Acute) SBO (small bowel obstruction) (Acute) Contact dermatitis (Acute) s/p fistulogram (Resolved ~09/28/18) history of surgically created arteriovenous fistula (Resolved) Stented coronary artery (Resolved) S/P CABG x 3 (Resolved 01/26/11) Status post peripheral artery angioplasty with insertion of stent (Resolved ~2010) 1. Acute on chronic hypoxic respiratory failure secondary to acute on chronic heart failure with preserved ejection fraction with associated recurrent bilateral pleural effusions, complicated by severe COPD with exacerbation, ESRD and acute on chronic anemia-left thoracentesis 10/01/2020 with 1150 mL fluid drained. Strict I&O. Daily weight. Nephrology consult for hemodialysis. On IV Lasix. Continue supplement oxygen to maintain O2 at above 90%. Patient has required frequent thoracentesis, recently 09/26/2020 which was ordered as outpatient by pulmonary medicine. Patient may benefit from palliative care, will discuss with patient. Previously, patient was considered for Pleurx catheter placement due to recurrent effusions. Will need further follow-up with pulmonary medicine as outpatient. Echocardiogram in October 2019 demonstrated an EF of 55%. 2. Acute on chronic severe COPD-respiratory panel and Covid negative. IV Solu-Medrol. Albuterol DuoNeb aerosols. 3. Acute on chronic iron deficiency anemia/anemia of chronic disease-general surgery consulted. Patient underwent EGD which showed grade a reflux esophagitis. No active bleeding. Continue Carafate, PPI. Trend CBC. If patient has further GI bleeding, will likely need referral to tertiary facility for further evaluation. 4. End-stage renal disease on hemodialysis-nephrology following. Continue dialysis per nephrology recommendations. 5. CAD status post CABG X3-continue statin, metoprolol. 6. BPH-continue Flomax regimen. 7. Hypertension-stable, continue metoprolol regimen. 8. History of colonic ischemia/history of GI bleed-November 2017 patient had a ischemic right colon and proximal transverse colon and underwent ileostomy. Continue PPI, Carafate as noted above. 9. Anxiety-on scheduled dose Xanax. 10. PAD/PVD-continue statin. Previously on aspirin which was discontinued. 11. Hyperlipidemia-continue statin regimen. 12. RAVEN-continue BiPAP nightly and PRN. 13. Chronic atrial fibrillation-anticoagulation contraindicated. Continue beta-lesa. DVT prophylaxis-SCDs This patient was seen by SEUN Obregon under the supervision of Dr. Boyd. <Victor M Boyd - Last Filed: 10/02/20 17:02> Objective: Patient is still coughing. He has chronic short of breath which gets worse on repeated coughing. On hemodialysis. Had EGD in the morning. Left arm AV fistula. Has total colectomy status post end ileostomy. Physical exam General: Alert, Oriented x3, Cooperative, thin build BMI 24.0 kg/m?. HEENT: Atraumatic, PERRLA, EOMI, Normocephalic Oral: No Gingival or Mucosal Lesions/ Ulcerations Neck: Supple, No JVD, Negative Carotid Bruits Lungs: Air entry diminished in bilateral lung bases. Coarse crepitation and rhonchi present in bilateral lungs. Cardiovascular: lunchroom monitor sinus rhythm. Regular rate, Regular Rhythm, Normal S1, Normal S2, No murmurs Abdomen: Ileostomy bag full of liquid stool with gas. Bowel Sounds Present, Soft, Non Tender, Non-Distended : No renal angle tenderness. No suprapubic tenderness. Extremities: No edema, Capillary Refill Less than 3 Seconds Skin: No rashes, No breakdown Musculoskeletal: Mild atrophy of limb extremity and loss of subcutaneous fat. No Tenderness to Palpation of Joints or Extremities Neurological: Cranial nerves II-XII grossly intact, Deep Tendon Reflexes 2+/4 and Symmetrical, Neuro grossly intact Psych/Mental Status: Normal Affect, Appropriate. - Physical Exam Vitals/I&O's: Vital Signs Temp Pulse Resp BP Pulse Ox 98 F 70 21 H 133/43 H 99 10/02/20 13:30 10/02/20 15:14 10/02/20 14:41 10/02/20 13:40 10/02/20 13:30 Oxygen Flow Rate (L/min) [3] 2 Oxygen Flow Rate (L/min) [2] 3 Oxygen Flow Rate (L/min) 2 Oxygen Delivery Method [3] Nasal Cannula Oxygen Delivery Method [2] Nasal Cannula Oxygen Delivery Method [1 ( Bi-pap Initial Baseline)] Oxygen Delivery Method Nasal Cannula Weight: 148 lb 15.991 oz Body Mass Index (BMI) 24.0 Finger Stick Blood Glucose 200 Intake and Output for Last 24 Hours 09/30/20 10/01/20 10/02/20 23:59 23:59 23:59 Intake Total 400 / 450 270 / 270 Output Total 1150 / 1300 200 / 200 Balance -750 / -850 70 / 70 Microbiology Past 72 Hours 10/01/20 19:00 Sputum, Expectorated/Coughed Gram Stain - Final 10/01/20 19:00 Sputum, Expectorated/Coughed Respiratory Culture - Preliminary GNR lactose sales facilitator Gram negative darin 10/01/20 18:02 Interface Orders Respiratory Panel (PCR) - Final 10/01/20 15:10 Mucosa - Nose SARS-CoV-2 Antigen (Rapid) - Final Laboratory Results 10/01/20 11:50: Crossmatch See Detail 10/01/20 11:52: Magnesium 2.1 12/16/20 17:14: Hgb 6.9 L, Hct 21.0 L 10/01/20 17:14: Troponin I 0.037 10/01/20 19:40: Hep Bs Antigen Non-Reactive 10/01/20 20:23: Troponin I 0.053 H 10/01/20 23:12: Hgb 8.6 L, Hct 26.3 L 10/01/20 23:12: Troponin I 0.041 10/02/20 06:50: WBC 3.0 L, RBC 2.48 L, Hgb 8.0 L, Hct 24.1 L, MCV 97.2 H D, MCH 32.3 H, MCHC 33.2, RDW Std Deviation 67.1 H, RDW Coeff of Eleni 18.7 H, Plt Count 153, MPV 10.1, Immature Gran % (Auto) 1.300 H, Neut % (Auto) 88.7 H, Lymph % (Auto) 8.7 L, [place] % (Auto) 1.3, Eos % (Auto) 0.0, Baso % (Auto) 0.0, Absolute Neuts (auto) 2.7, Absolute Lymphs (auto) 0.26 L, Nucleated RBC % 0, Diff Path Review Reviewed 10/02/20 06:50: Sodium 138, Potassium 3.7, Chloride 99, Carbon Dioxide 28.0, Anion Gap 11, BUN 32 H, Creatinine 3.94 H, Estim Creat Clear Calc 16.19, Est GFR (MDRD) Af Amer 20 L, Est GFR (MDRD) Non-Af 16 L, BUN/Creatinine Ratio 8.1 L, Glucose 125 H, Calcium 8.1 L, Total Bilirubin 1.00, AST 16, ALT 18, Alkaline Phosphatase 130 H, Total Protein 5.7 L, Albumin 2.3 L, Globulin 3.4, Albumin/Globulin Ratio 0.7 L Current Medications Acetaminophen (Acetaminophen 325 Mg Tablet) 650 mg PO Q6H PRN PRN PRN Reason: Pain Score 1-10/Temp > 100.7 F Albuterol Sulfate (Albuterol 2.5 Mg/3 Ml Vial.Neb.) 2.5 mg INHALATION Q2H PRN PRN PRN Reason: Dyspnea, wheezing Albuterol/Ipratropium (Ipratropium/Albuterol Sulfate 3 Ml Ampul.Neb) 3 ml INHALATION Q4HWA.RT [facility] Last Admin: 10/02/20 14:28 Dose: 3 ml Documented by: Alprazolam (Alprazolam 0.5 Mg Tablet) 1 mg PO BID [facility] Last Admin: 10/02/20 13:41 Dose: 1 mg Documented by: Atorvastatin Calcium (Atorvastatin Calcium 80 Mg Tablet) 80 mg PO QHS [facility] Last Admin: 10/01/20 23:50 Dose: 80 mg Documented by: Diphenhydramine HCl (Diphenhydramine 50 Mg/Ml Syringe) 25 mg IV Q6H PRN PRN PRN Reason: for itching Hydralazine HCl (Hydralazine 20 Mg/Ml Vial) 10 mg IV Q4H PRN PRN PRN Reason: SBP > 160 Hydroxyzine Pamoate (Hydroxyzine Estrellita 25 Mg Capsule) 25 mg PO 4X/DAY PRN PRN PRN Reason: pruritits Pantoprazole Sodium 40 mg/ (Sodium Chloride) 110 mls @ 330 mls/hr IV Q12 [facility] Last Infusion: 10/02/20 15:22 Dose: Infused Documented by: Sodium Chloride () 250 mls @ 15 mls/hr IV .[id number] PRN PRN Reason: Saline Flush Sodium Chloride () 250 mls @ 15 mls/hr IV .[id number] PRN PRN Reason: Additional IVPB Infusion Methylprednisolone (Methylprednisolone 40 Mg/Ml Vial) 40 mg IV Q8 [facility] Last Admin: 10/02/20 15:08 Dose: 40 mg Documented by: Metoprolol Succinate (Metoprolol(Xl)Succ 50 Mg Tablet) 50 mg PO BID [facility] Last Admin: 10/02/20 13:40 Dose: 50 mg Documented by: Morphine Sulfate (Morphine 2 Mg/Ml Syringe) 2 mg IV Q3H PRN PRN PRN Reason: Pain Score 6-10 Nitroglycerin (Nitroglycerin (Inpatient Use) 0.4 Mg Tab.Subl) 0.4 mg SUBLINGUAL Q5M PRN PRN Reason: CARDIAC/CHEST PAIN Ondansetron HCl (Ondansetron 4 Mg/2 Ml Vial) 4 mg IV Q8H PRN PRN PRN Reason: NAUSEA/VOMITING Prochlorperazine Edisylate (Prochlorperazine 10 Mg/2 Ml Vial) 5 mg IV Q4H PRN PRN PRN Reason: Breakthrough Nausea/Vomiting Sodium Chloride (0.9% Saline Lock 10 Ml Syringe) 10 - 40 ml IV UD PRN PRN Reason: SALINE FLUSH Last Admin: 10/02/20 05:30 Dose: 10 ml Documented by: Sucralfate (Sucralfate 1 Gm Tablet) 1 gm PO BIDAC [facility] Last Admin: 10/02/20 05:31 Dose: Not Given Documented by: Assessment/Plan This patient was seen in conjunction with SEAT MAKERHaven. I have independently interviewed and examined the patient and reviewed pertinent history, examination findings, laboratory and plan of management. I have reviewed the note and agree with the documented findings with the few additional points. In brief, patient is 63 [id number] with multiple comorbidities including severe COPD, chronic iron deficiency anemia/anemia of chronic disease was admitted with dyspnea and wheezing. Patient had left-sided thoracocentesis on 09/26/2020. In the ER was found bloody maroon stool in colostomy bag. Patient has history of small bowel AVM bleeding 1 time EGD was done was found reflux esophagitis with mild Schatzki ring. A small hiatus hernia. Erythematous mucosa in antrum. No clinical signs of involved. No active bleeding. Dr. Lua saw the patient and thinks possible bleeding from small bowel AVM. If it persist, recommended transfer to tertiary care center. 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 Serial H&H around 8.0. Patient lowest hemoglobin 6.9. Other multiple comorbidities including end-stage renal disease on hemodialysis, coronary artery disease status post three-vessel CABG, COPD and chronic recurrent bilateral pleural effusion with multiple thoracocentesis. Patient follows Dr. Caicedo. Echo in March 2020 EF 55%. Patient is palliative care appropriate candidate. I have discussed my assessment with Haven AYERS and orders have been reviewed. Inpatient E&M: 44884 Subs Hosp L2
[2020-10-02] MEDS: Metoprolol(XL)Succ 50 MG Tablet PO ×2 (13:40→21:13)
[2020-10-02] MEDS: ALPRAZolam 0.5 MG Tablet 1 MG PO ×2 (13:41→21:13)
[2020-10-02 13:52] LABS: Pathologist Review Reviewed
--- NOTE | 2020-10-02 14:10 | CASEMGMT ---
RAYMOND SPENCER assessment: Face to Face with patient for initial transition planning/care coordination assessment. RAYMOND SPENCER introduced self and role at [facility], pt voices understanding and consents to assessment at this time. Pt is sitting up in bed in no distress at this time. Pt is A/Ox4 at this time and answers all questions appropriately at this time. Care providers, pharmacy, and demographics verified at this time. PCP: Terra Berger Specialists: Corbin, nephro; James, cardio in [place]; joanna Caicedo Preferred Pharm[facility]: [facility] [facility] Living Will/HPOA: Pt states has HPOA and it is on file at [facility] at this time. Pt is aware that he does not have a LW on file and this RAYMOND SPENCER explained LW at this time, pt voices understanding. Pt does not want to complete LW at this time. LNOK: Heidy Gimenez, ; Jennifer Martinez, daughter Living Arrangements: Pt states lives with in 1 story home with 2 steps in and states no concerns at home at this time. Pt states is independent with ADL's. Transportation: Pt states he/ drives and states no transportation concerns at this time. DME/HHC: Pt states cane, walker, scooter, nebulizer, bipap, and home oxygen 2 liters 24/7 thru [employer]. Pt states does home HD every other day with 's assistance. Pt states no hx of HHC or SNF in the past. Pt states no concerns with going home at time of discharge. Pt is retired. Pt states smokes cigarettes 'off and on' and drinks 2 beers daily normally. Pt states no further concerns/needs at this time. CM to follow for any further discharge planning/needs. Advised pt/ to ask for CM if any further questions/concerns/needs arise, voices understanding. Pt Goal: Home Plan[place] RAYMOND SPENCER
[2020-10-02] MEDS: Sucralfate 1 GM Tablet PO (17:44)
[2020-10-02] MEDS: Atorvastatin Calcium 80 MG Tablet PO (21:13)
[2020-10-03] VITALS (8 sets, daily range): BP systolic 120–135; BP diastolic 54–62; PULSE 65–70; RESP 12–23; TEMP 36.3; O2SAT 95–98; BMI 24.2
[2020-10-03] MEDS: Acetaminophen 325 MG Tablet 650 MG PO (04:16)
[2020-10-03] MEDS: guaiFENesin 10 ML UDC (200MG/10ML) PO (05:04)
[2020-10-03] MEDS: 0.9% Saline Lock 10 ML Syringe IV (05:05)
--- NOTE | 2020-10-03 05:58 | PCM.PN.SRG ---
Patient Problems: Active and Suspected Problems (Last Reviewed 10/01/20 @ 16:02 by Tiara FELIPE, PALaloC) Acute on chronic respiratory failure with hypoxia and hypercapnia (Acute) Bleeding (Acute) Acute lower GI bleeding (Acute) Anemia due to acute blood loss (Acute) Hyponatremia (Acute) Bilateral pleural effusion (Acute) Fluid overload (Acute) COPD exacerbation (Acute) Acute GI bleeding (Acute) Pleural effusion (Acute) Subjective: Patient has no specific abdominal complaints today. - Physical Exam Vitals/I&O's: Vital Signs Temp Pulse Resp BP Pulse Ox 97.4 F L 68 17 135/55 H 97 10/03/20 03:10 10/03/20 03:10 10/03/20 03:10 10/03/20 03:10 10/03/20 03:10 Oxygen Flow Rate (L/min) [3] 2 Oxygen Flow Rate (L/min) [2] 3 Oxygen Flow Rate (L/min) 2 Oxygen Delivery Method [3] Nasal Cannula Oxygen Delivery Method [2] Nasal Cannula Oxygen Delivery Method [1 ( Bi-pap Initial Baseline)] Oxygen Delivery Method Nasal Cannula Weight: 148 lb 15.991 oz Body Mass Index (BMI) 24.0 Finger Stick Blood Glucose 200 Intake and Output for Last 24 Hours 10/01/20 10/02/20 10/03/20 23:59 23:59 23:59 Intake Total 400 / 450 1000 / 1000 Output Total 1150 / 1300 800 / 800 Balance -750 / -850 200 / 200 Abdomen: - - Abdominal soft, nontender, stool within the stomal bag appears to be a normal brown Microbiology Past 72 Hours 10/01/20 19:00 Sputum, Expectorated/Coughed Gram Stain - Final 10/01/20 19:00 Sputum, Expectorated/Coughed 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 Gram negative darin 10/01/20 18:02 Interface Orders Respiratory Panel (PCR) - Final 10/01/20 15:10 Mucosa - Nose SARS-CoV-2 Antigen (Rapid) - Final Laboratory Results 10/01/20 19:40: Hep Bs Antigen Non-Reactive 10/02/20 06:50: WBC 3.0 L, RBC 2.48 L, Hgb 8.0 L, Hct 24.1 L, MCV 97.2 H D, MCH 32.3 H, MCHC 33.2, RDW Std Deviation 67.1 H, RDW Coeff of Eleni 18.7 H, Plt Count 153, MPV 10.1, Immature Gran % (Auto) 1.300 H, Neut % (Auto) 88.7 H, Lymph % (Auto) 8.7 L, [place] % (Auto) 1.3, Eos % (Auto) 0.0, Baso % (Auto) 0.0, Absolute Neuts (auto) 2.7, Absolute Lymphs (auto) 0.26 L, Nucleated RBC % 0, Diff Path Review Reviewed 10/02/20 06:50: Sodium 138, Potassium 3.7, Chloride 99, Carbon Dioxide 28.0, Anion Gap 11, BUN 32 H, Creatinine 3.94 H, Estim Creat Clear Calc 16.19, Est GFR (MDRD) Af Amer 20 L, Est GFR (MDRD) Non-Af 16 L, BUN/Creatinine Ratio 8.1 L, Glucose 125 H, Calcium 8.1 L, Total Bilirubin 1.00, AST 16, ALT 18, Alkaline Phosphatase 130 H, Total Protein 5.7 L, Albumin 2.3 L, Globulin 3.4, Albumin/Globulin Ratio 0.7 L Current Medications Acetaminophen (Acetaminophen 325 Mg Tablet) 650 mg PO Q6H PRN PRN PRN Reason: Pain Score 1-10/Temp > 100.7 F Last Admin: 10/03/20 04:16 Dose: 650 mg Documented by: Albuterol Sulfate (Albuterol 2.5 Mg/3 Ml Vial.Neb.) 2.5 mg INHALATION Q2H PRN PRN PRN Reason: Dyspnea, wheezing Albuterol/Ipratropium (Ipratropium/Albuterol Sulfate 3 Ml Ampul.Neb) 3 ml INHALATION Q4HWA.RT JAIME Last Admin: 10/02/20 19:35 Dose: 3 ml Documented by: Alprazolam (Alprazolam 0.5 Mg Tablet) 1 mg PO BID JAIME Last Admin: 10/02/20 21:13 Dose: 1 mg Documented by: Atorvastatin Calcium (Atorvastatin Calcium 80 Mg Tablet) 80 mg PO QHS [facility] Last Admin: 10/02/20 21:13 Dose: 80 mg Documented by: Diphenhydramine HCl (Diphenhydramine 50 Mg/Ml Syringe) 25 mg IV Q6H PRN PRN PRN Reason: for itching Guaifenesin (Guaifenesin 10 Ml Udc (200mg/10ml)) 10 ml PO Q4H PRN PRN PRN Reason: COUGH Last Admin: 10/03/20 05:04 Dose: 10 ml Documented by: Hydralazine HCl (Hydralazine 20 Mg/Ml Vial) 10 mg IV Q4H PRN PRN PRN Reason: SBP > 160 Hydroxyzine Pamoate (Hydroxyzine Estrellita 25 Mg Capsule) 25 mg PO 4X/DAY PRN PRN PRN Reason: pruritits Pantoprazole Sodium 40 mg/ (Sodium Chloride) 110 mls @ 330 mls/hr IV Q12 [facility] Last Infusion: 10/02/20 21:32 Dose: Infused Documented by: Sodium Chloride () 250 mls @ 15 mls/hr IV .[id number] PRN PRN Reason: Saline Flush Sodium Chloride () 250 mls @ 15 mls/hr IV .[id number] PRN PRN Reason: Additional IVPB Infusion Methylprednisolone (Methylprednisolone 40 Mg/Ml Vial) 40 mg IV Q8 [facility] Last Admin: 10/03/20 05:05 Dose: 40 mg Documented by: Metoprolol Succinate (Metoprolol(Xl)Succ 50 Mg Tablet) 50 mg PO BID [facility] Last Admin: 10/02/20 21:13 Dose: 50 mg Documented by: Morphine Sulfate (Morphine 2 Mg/Ml Syringe) 2 mg IV Q3H PRN PRN PRN Reason: Pain Score 6-10 Nitroglycerin (Nitroglycerin (Inpatient Use) 0.4 Mg Tab.Subl) 0.4 mg SUBLINGUAL Q5M PRN PRN Reason: CARDIAC/CHEST PAIN Ondansetron HCl (Ondansetron 4 Mg/2 Ml Vial) 4 mg IV Q8H PRN PRN PRN Reason: NAUSEA/VOMITING Prochlorperazine Edisylate (Prochlorperazine 10 Mg/2 Ml Vial) 5 mg IV Q4H PRN PRN PRN Reason: Breakthrough Nausea/Vomiting Sodium Chloride (0.9% Saline Lock 10 Ml Syringe) 10 - 40 ml IV UD PRN PRN Reason: SALINE FLUSH Last Admin: 10/03/20 05:05 Dose: 10 ml Documented by: Sucralfate (Sucralfate 1 Gm Tablet) 1 gm PO BIDAC [facility] Last Admin: 10/02/20 17:44 Dose: 1 gm Documented by: Medical Necessity - Tobacco Use Smoking Status: Current some day smoker Tobacco Use: Cigarettes Assessment/Plan All Active Problems (Last Reviewed 10/01/20 @ 16:03 by Tiara FELIPE, PA-C) Acute on chronic respiratory failure with hypoxia and hypercapnia (Acute) Bleeding (Acute) Acute lower GI bleeding (Acute) Anemia due to acute blood loss (Acute) Hyponatremia (Acute) Bilateral pleural effusion (Acute) Fluid overload (Acute) COPD exacerbation (Acute) Acute GI bleeding (Acute) Pleural effusion (Acute) Pneumonia (Acute) SBO (small bowel obstruction) (Acute) Contact dermatitis (Acute) s/p fistulogram (Resolved ~09/28/18) history of surgically created arteriovenous fistula (Resolved) Stented coronary artery (Resolved) S/P CABG x 3 (Resolved 01/26/11) Status post peripheral artery angioplasty with insertion of stent (Resolved ~2010) The patient may actually be absolutely correct that the blood in the stomal bag might have been related to a severe episode of epistasis that he claims to have had a day or so prior to admission. Pathology from his duodenal and gastric biopsies pending although at the time of his upper endoscopy there was no active bleeding. At this point I am not anticipating that he will require surgical intervention. He has had an opportunity to ask and have questions answered. My additional understanding is that he is being advised against pursuing a Pleurx catheter for his recurrent pleural effusion secondary to infection risk. I will sign off but please reconsult as needed. Demian Lua M.D., F.A.C.S.
[2020-10-03] MEDS: Sucralfate 1 GM Tablet PO (06:31)
[2020-10-03] MEDS: Ipratropium/Albuterol Sulfate 3 ML AMPUL.NEB INHALATION (06:53)
[2020-10-03 07:35] LABS: Hematocrit 25.4 % (40-54); Hemoglobin 8.1 g/dL (13.0-16.5); Mean Corp Hgb Conc 31.9 g/dL (32-36); Mean Corpuscular Hgb 31.8 pg (27.0-32.0); Mean Corpuscular Volume 99.6 fL (80-94); Mean Platelet Vol. 10.8 fl (6.2-12.0); POSITIVE MORPHOLOGY YES; Platelet Count 167 K/mm3 (150-450); RBC Distribution Width CV 18.6 % (11.6-14.6); RBC Distribution Width SD 67.5 fl (35.1-43.9); Red Blood Count 2.55 M/mm3 (4.6-6.2); White Blood Count 7.2 K/mm3 (4.4-11.0)
[2020-10-03 07:40] LABS: Scan Indicated on CBC? Y/N YES- FLAGS NOTED
[2020-10-03 08:15] LABS: Anion Gap 8 (5-15); BUN 65 mg/dL (7-18); BUN/Creat Ratio 11.1 RATIO (10-20); Chloride 98 mmol/L (98-107); Creatinine, Serum 5.83 mg/dL (0.70-1.30); EST Glomerular Filtration Rate 10 mL/min (>60); Est Glom Filt Rate - Afr Amer 13 mL/min (>60); Estimated Creatinine Clearance 10.94 ml/min; Glucose 153 mg/dL (74-106); Potassium 4.6 mmol/L (3.5-5.1); Sodium Level 133 mmol/L (136-145)
--- NOTE | 2020-10-03 09:51 | DCINST_ITS ---
- Discharge Diagnoses Current Active Problems: Current Active and Chronic Problems (Last Reviewed 10/01/20 @ 16:02 by Tiara FELIPE PARamo) Acute on chronic respiratory failure with hypoxia and hypercapnia (Acute) Bleeding (Acute) Acute lower GI bleeding (Acute) Anemia due to acute blood loss (Acute) Hyponatremia (Acute) Bilateral pleural effusion (Acute) Fluid overload (Acute) COPD exacerbation (Acute) Acute GI bleeding (Acute) Pleural effusion (Acute) ESRD (end stage renal disease) on dialysis (Chronic) Chronic atrial fibrillation (Chronic) RAVEN (obstructive sleep apnea) (Chronic) AHI 42.6 History of non-ST elevation myocardial infarction (NSTEMI) (Chronic 01/21/11) Atherosclerotic heart disease of [place] coronary artery without angina pectoris (Chronic) 2003, JASON to circumflex ; 10/10/2009 tsfer from [facility] to [facility], total of 5 bare metal stents to RCA; CABG X 3 vessels @ [facility] 01/31/2011 (critical left main and restenosis of RCA stents) Diastolic CHF (Chronic) HLD (hyperlipidemia) (Chronic) HTN (hypertension) (Chronic) PAD (peripheral artery disease) (Chronic) COPD (chronic obstructive pulmonary disease) (Chronic) Tobacco dependence (Chronic) BPH (benign prostatic hyperplasia) (Chronic) You will use the following diet at home:: Renal (restricted protein/sodium) Discharge Activity: Return to Normal Activity Call your doctor if you observe: Shortness of breath, Dizziness, Fainting spells, Chest pain Allergies/Adverse Reactions: Allergies irbesartan [From Avapro] Allergy (Severe, Verified 10/01/20 11:20) Blisters zolpidem [From Ambien] Adverse Reaction (Severe, Verified 10/01/20 11:20) made me go crazy, memory loss amoxicillin Adverse Reaction (Intermediate, Verified 10/01/20 11:20) PASSES BLOOD IN STOOL TOLERATES ZOSYN PASSES BLOOD IN STOOL gabapentin Adverse Reaction (Unknown, Verified 10/01/20 11:20) emotional metronidazole [From Flagyl] Adverse Reaction (Verified 10/01/20 11:20) pt states he got palpitations and nose bleed. pt states he got palpitations and nose bleed. Medications to take at Discharge Budesonide Aerosol [Pulmicort Respules] 1 inh INHALATION BID 07/23/19 Ipratropium/Albuterol Sulfate [Iprat-Albut 0.5-3(2.5) mg/3 ml] 1 inh INHALATION Q4H PRN PRN 07/23/19 Rosuvastatin Calcium [Crestor] 40 mg PO QHS 07/23/19 hydrOXYzine pamoate capsule [Vistaril pamoate capsule] 25 mg PO 4X/DAY PRN PRN #30 cap 02/07/20 ALPRAZolam [Xanax] 1 mg PO BID 10/01/20 Cholecalciferol (Vitamin D3) [D3-2000] 2,000 unit PO DAILY 10/01/20 Metoprolol Succinate [Toprol Xl] 50 mg PO BID 10/01/20 [place]-3 Fatty Acids/Fish Oil [Fish Oil 1,000 mg Capsule] 1 ea PO DAILY 10/01/20 Sucralfate 1 gm PO BID 10/01/20 Pantoprazole Sodium [Protonix] 40 mg PO BID #60 tab 10/03/20 Prednisone See Taper PO DAILY #30 tab 10/03/20 The following prescriptions were given: Prednisone See Taper PO DAILY #30 tab Transmission Status: Pending to [id number] Pantoprazole Sodium [Protonix] 40 mg PO BID #60 tab Transmission Status: Pending to [id number] Primary Care Physician: Tania Berger NP, ROBOTICS SOFTWARE ENGINEER-C [Primary Care Provider] - Please follow up with your Primary Care Physician in: 1 Week Test Results: Test results from this visit will be discussed in further detail at your follow- up appointment, if applicable. Please Follow Up With: Elie Caicedo MD When: As scheduled 10/29/2020 Please Follow Up With: Caleb Alaniz MD When: As scheduled Proposed Discharge Date: 10/03/20
--- NOTE | 2020-10-03 11:35 | CASEMGMT ---
Pt is on his 2L continuous home oxygen dose at this time and states no further need for any further resources at this time. Chris ANDRADE CM
--- NOTE | 2020-10-03 11:52 | PHA.DC.MC ---
Pharmacy Service has performed discharge medication reconciliation and counseling for this patient. 1. PANTOPRAZOLE 40MG PO BID 2. PREDNISONE 40MG X 3 DAYS, THEN 30MG X 3 DAYS, THEN 20MG X 3 DAYS, THEN 10MG X 3 DAYS The patient's discharge medication list was reviewed for discrepancies and discrepancies were resolved. Home Medications Budesonide Aerosol [Pulmicort Respules] 1 inh INHALATION BID 07/23/19 Ipratropium/Albuterol Sulfate [Iprat-Albut 0.5-3(2.5) mg/3 ml] 1 inh INHALATION Q4H PRN PRN 07/23/19 Rosuvastatin Calcium [Crestor] 40 mg PO QHS 07/23/19 hydrOXYzine pamoate capsule [Vistaril pamoate capsule] 25 mg PO 4X/DAY PRN PRN #30 cap 02/07/20 ALPRAZolam [Xanax] 1 mg PO BID 10/01/20 Cholecalciferol (Vitamin D3) [D3-2000] 2,000 unit PO DAILY 10/01/20 Metoprolol Succinate [Toprol Xl] 50 mg PO BID 10/01/20 [place]-3 Fatty Acids/Fish Oil [Fish Oil 1,000 mg Capsule] 1 ea PO DAILY 10/01/20 Sucralfate 1 gm PO BID 10/01/20 Pantoprazole Sodium [Protonix] 40 mg PO BID #60 tab 10/03/20 Prednisone See Taper PO DAILY #30 tab 10/03/20 The patient was counseled on the following discharge medications and changes in medications for homegoing were reviewed. The Reason for Use, instructions for use, and potential side effects were reviewed for all new medications. The patient's questions regarding all of their medications were answered. The patient was able to verbally demonstrate an understanding of their discharge medications.
--- NOTE | 2020-10-03 12:49 | DS.PCM_ITS ---
<[place] NET PROGRAMMER ANALYST - Last Filed: 10/03/20 13:13> Discharge Date and Diagnosis - Problem List Patient Problems: Active and Suspected Problems (Last Reviewed 10/01/20 @ 16:02 by Tiara FELIPE, PA-Izabel) Acute on chronic respiratory failure with hypoxia and hypercapnia (Acute) Bleeding (Acute) Acute lower GI bleeding (Acute) Anemia due to acute blood loss (Acute) Hyponatremia (Acute) Bilateral pleural effusion (Acute) Fluid overload (Acute) COPD exacerbation (Acute) Acute GI bleeding (Acute) Pleural effusion (Acute) Date of Admission: 10/01/20 Date of Discharge: 10/03/20 - Primary Discharge Diagnosis Acute Problems: Active Problems (Last Reviewed 10/01/20 @ 16:02 by Tiara FELIPE PA-C) 1. Acute on chronic hypoxic respiratory failure secondary to acute on chronic heart failure with preserved ejection fraction with associated recurrent bilateral pleural effusions, complicated by severe COPD with exacerbation, ESRD and acute on chronic anemia 2. Acute on chronic severe COPD 3. Acute on chronic iron deficiency anemia/anemia of chronic disease 4. End-stage renal disease on hemodialysis 5. CAD status post CABG X3 6. BPH 7. Hypertension 8. History of colonic ischemia/history of GI bleed-November 2017 patient had a ischemic right colon and proximal transverse colon and underwent ileostomy. 9. Anxiety 10. PAD/PVD 11. Hyperlipidemia 12. RAVEN 13. Chronic atrial fibrillation - Secondary Discharge Diagnosis Chronic Problems: Chronic Problems (Last Reviewed 10/01/20 @ 16:02 by Tiara FELIPE, MATTEO-C) ESRD (end stage renal disease) on dialysis (Chronic) Transudative pleural effusion (Chronic) Chronic atrial fibrillation (Chronic) Problem with dialysis access (Chronic) RAVEN (obstructive sleep apnea) (Chronic) AHI 42.6 ESRD (end stage renal disease) (Chronic) History of non-ST elevation myocardial infarction (NSTEMI) (Chronic 01/21/11) Atherosclerotic heart disease of [place] coronary artery without angina pectoris (Chronic) 2003, JASON to circumflex ; 10/10/2009 tsfer from [facility] to [facility], total of 5 bare metal stents to RCA; CABG X 3 vessels @ [facility] 01/31/2011 (critical left main and restenosis of RCA stents) Diastolic CHF (Chronic) HLD (hyperlipidemia) (Chronic) HTN (hypertension) (Chronic) PAD (peripheral artery disease) (Chronic) COPD (chronic obstructive pulmonary disease) (Chronic) Tobacco dependence (Chronic) Anemia (Chronic) BPH (benign prostatic hyperplasia) (Chronic) Hospital Course and Treatment Imaging Results: Diagnostic Data Thoracentesis Ultrasound 10/01/20 14:27 IMPRESSION: Ultrasound-guided left thoracentesis. Electronically Signed: Deven Ayden, at 15:14 EST , Service support , Chest X-Ray 10/02/20 05:55 IMPRESSION: Stable examination. Electronically Signed: Devenapril Hensley, at 9:53 EST , Service support , Dr. Lua- Surgery Dr. Alaniz- Nephrology Operations: None Procedures: EGD, Thoracentesis Summary of Care Provided: The patient is a 69 year old M admitted 10/01/2020 due to dyspnea and wheezing. 1. Acute on chronic hypoxic respiratory failure secondary to acute on chronic heart failure with preserved ejection fraction with associated recurrent bilateral pleural effusions, complicated by severe COPD with exacerbation, ESRD and acute on chronic anemia-left thoracentesis 10/01/2020 with 1150 mL fluid drained. Nephrology consult for hemodialysis. Continue supplement oxygen to maintain O2 at above 90%. Currently on baseline home O2 requirements. Recent thoracentesis, recently 09/26/2020 which was ordered as outpatient by pulmonary medicine. Patient is not amendable to palliative care discussion. Previously, patient was considered for Pleurx catheter placement due to recurrent effusions however per patient, this has not recently been discussed. Echocardiogram in October 2019 demonstrated an EF of 55%. Patient has upcoming follow-up with pulmonary medicine 10/29/2020. 2. Acute on chronic severe COPD-respiratory panel and Covid negative. IV Solu- Medrol during admission, transition to prednisone taper at discharge. Continue h ome aerosol treatments. 3. Acute on chronic iron deficiency anemia/anemia of chronic disease-general surgery consulted during admission. Patient underwent EGD which showed grade a reflux esophagitis. No active bleeding. Continue Carafate, twice daily PPI. Hemoglobin stable. Patient reports severe episode of epistaxis prior to admission which possibly contributed to blood in stoma bag. Follow-up with primary GI/surgery if further bleeding. 4. End-stage renal disease on hemodialysis-nephrology following. Continue dialysis per nephrology recommendations. 5. CAD status post CABG X3-continue statin, metoprolol. 6. BPH-continue Flomax regimen. 7. Hypertension-stable, continue metoprolol regimen. 8. History of colonic ischemia/history of GI bleed-November 2017 patient had a ischemic right colon and proximal transverse colon and underwent ileostomy. Continue PPI, Carafate as noted above. 9. Anxiety-on scheduled dose Xanax. 10. PAD/PVD-continue statin. Previously on aspirin which was discontinued. 11. Hyperlipidemia-continue statin regimen. 12. RAVEN-continue BiPAP nightly and PRN. 13. Chronic atrial fibrillation-anticoagulation contraindicated. Continue beta-lesa. General: Alert, Oriented x3, Cooperative HEENT: Atraumatic, PERRLA, EOMI, Normocephalic Neck: Supple, No JVD, Negative Carotid Bruits Lungs: Diminished, Rales Cardiovascular: Regular rate, No murmurs Abdomen: Bowel Sounds Present, Soft, Non Tender, Non-Distended, - - Ostomy intact Extremities: No clubbing, No cyanosis, No edema, Capillary Refill Less than 3 Seconds Skin: No rashes, No breakdown Musculoskeletal: No Tenderness to Palpation of Joints or Extremities Neurological: Cranial nerves II-XII grossly intact, Neuro grossly intact Psych/Mental Status: Normal Affect, Appropriate Patient seen and examined prior to discharge. Physical assessment as noted above. Patient is stable for discharge with follow up recommendations as noted above. This patient was seen by SEUN Obregon under the supervision of Dr. Boyd. Patient Problems: Active and Suspected Problems (Last Reviewed 10/01/20 @ 16:02 by Tiara FELIPE PA-C) Acute on chronic respiratory failure with hypoxia and hypercapnia (Acute) Bleeding (Acute) Acute lower GI bleeding (Acute) Anemia due to acute blood loss (Acute) Hyponatremia (Acute) Bilateral pleural effusion (Acute) Fluid overload (Acute) COPD exacerbation (Acute) Acute GI bleeding (Acute) Pleural effusion (Acute) - Physical Exam Vitals/I&O's: Vital Signs Temp Pulse Resp BP Pulse Ox 97.4 F L 65 18 120/54 L 98 10/03/20 09:10 10/03/20 10:40 10/03/20 10:40 10/03/20 10:40 10/03/20 10:40 Oxygen Flow Rate (L/min) [3] 2 Oxygen Flow Rate (L/min) [2] 3 Oxygen Flow Rate (L/min) 2 Oxygen Delivery Method [3] Nasal Cannula Oxygen Delivery Method [2] Nasal Cannula Oxygen Delivery Method [1 ( Bi-pap Initial Baseline)] Oxygen Delivery Method Nasal Cannula Weight: 152 lb 1.903 oz Body Mass Index (BMI) 24.0 Finger Stick Blood Glucose 200 Intake and Output for Last 24 Hours 10/01/20 10/02/20 10/03/20 23:59 23:59 23:59 Intake Total 400 / 450 1000 / 1000 210 / 210 Output Total 1150 / 1300 800 / 800 500 / 500 Balance -750 / -850 200 / 200 -290 / -290 Microbiology Past 72 Hours 10/01/20 19:00 Sputum, Expectorated/Coughed Gram Stain - Final 10/01/20 19:00 Sputum, Expectorated/Coughed Respiratory Culture - Preliminary GNR lactose wing coverer Gram negative darin Staphylococcus aureus Streptococcus pneumoniae 10/01/20 18:02 Interface Orders Respiratory Panel (PCR) - Final 10/01/20 15:10 Mucosa - Nose SARS-CoV-2 Antigen (Rapid) - Final Laboratory Results 10/02/20 06:50: Diff Path Review Reviewed 10/03/20 07:20: WBC 7.2, RBC 2.55 L, Hgb 8.1 L, Hct 25.4 L, MCV 99.6 H, MCH 31.8, MCHC 31.9 L, RDW Std Deviation 67.5 H, RDW Coeff of Eleni 18.6 H, Plt Count 167, MPV 10.8, Differential Comment COMMENT 10/03/20 07:20: Sodium 133 L, Potassium 4.6, Chloride 98, Carbon Dioxide 27.0, Anion Gap 8, BUN 65 H, Creatinine 5.83 H, Estim Creat Clear Calc 10.94, Est GFR (MDRD) Af Amer 13 L, Est GFR (MDRD) Non-Af 10 L, BUN/Creatinine Ratio 11.1, Glucose 153 H, Calcium 8.0 L Discharge Diet: Low fat/ Low Cholesterol, Renal Diet Discharge Activity: Return to Normal Activity Call your doctor if you observe: Shortness of breath, Dizziness, Fainting spells, Chest pain Home Medications: Medications to take at Discharge Budesonide Aerosol [Pulmicort Respules] 1 inh INHALATION BID 07/23/19 Ipratropium/Albuterol Sulfate [Iprat-Albut 0.5-3(2.5) mg/3 ml] 1 inh INHALATION Q4H PRN PRN 07/23/19 Rosuvastatin Calcium [Crestor] 40 mg PO QHS 07/23/19 hydrOXYzine pamoate capsule [Vistaril pamoate capsule] 25 mg PO 4X/DAY PRN PRN #30 cap 02/07/20 ALPRAZolam [Xanax] 1 mg PO BID 10/01/20 Cholecalciferol (Vitamin D3) [D3-2000] 2,000 unit PO DAILY 10/01/20 Metoprolol Succinate [Toprol Xl] 50 mg PO BID 10/01/20 [place]-3 Fatty Acids/Fish Oil [Fish Oil 1,000 mg Capsule] 1 ea PO DAILY 10/01/20 Sucralfate 1 gm PO BID 10/01/20 Pantoprazole Sodium [Protonix] 40 mg PO BID #60 tab 10/03/20 Prednisone See Taper PO DAILY #30 tab 10/03/20 Following Prescriptions Were Given to Patient: Prednisone See Taper PO DAILY #30 tab Transmission Status: Received by [id number] Pantoprazole Sodium [Protonix] 40 mg PO BID #60 tab Transmission [facility]: [id number] Primary Care Physician: Tania Berger NP, NET PROGRAMMER ANALYST-C [Primary Care Provider] - Please follow up with your Primary Care Physician in: 1 Week Please Follow Up With: Elie Caicedo MD When: As scheduled 10/29/2020 Please Follow Up With: Caleb Alaniz MD When: As scheduled Disposition: Home Minutes spent on discharge:: 35 Patient Condition:: Stable Medical Necessity - Tobacco Use Smoking Status: Current some day smoker Tobacco Use: Cigarettes Meaningful Use Info Meaningful Use Diagnoses (Choose all that apply): CHF - CHF HEATHER/ARB ordered at discharge?: No Reason HEATHER/ARB not ordered?: Worsening renal function Documented LVEF (%): 55 <Victor M Boyd - Last Filed: 10/03/20 15:40> Discharge Date and Diagnosis - Primary Discharge Diagnosis Acute Problems: Active Problems (Last Reviewed 10/01/20 @ 16:02 by Tiara FELIPE PA-C) Acute on chronic respiratory failure with hypoxia and hypercapnia (Acute) Bleeding (Acute) Acute lower GI bleeding (Acute) Anemia due to acute blood loss (Acute) Hyponatremia (Acute) Bilateral pleural effusion (Acute) Fluid overload (Acute) COPD exacerbation (Acute) Acute GI bleeding (Acute) Pleural effusion (Acute) - Secondary Discharge Diagnosis Chronic Problems: Chronic Problems (Last Reviewed 10/01/20 @ 16:02 by FRANCO LesterC) ESRD (end stage renal disease) on dialysis (Chronic) Transudative pleural effusion (Chronic) Chronic atrial fibrillation (Chronic) Problem with dialysis access (Chronic) RAVEN (obstructive sleep apnea) (Chronic) AHI 42.6 ESRD (end stage renal disease) (Chronic) History of non-ST elevation myocardial infarction (NSTEMI) (Chronic 01/21/11) Atherosclerotic heart disease of [place] coronary artery without angina pectoris (Chronic) 2003, JASON to circumflex ; 10/10/2009 tsfer from [facility] to [facility], total of 5 bare metal stents to RCA; CABG X 3 vessels @ [facility] 01/31/2011 (critical left main and restenosis of RCA stents) Diastolic CHF (Chronic) HLD (hyperlipidemia) (Chronic) HTN (hypertension) (Chronic) PAD (peripheral artery disease) (Chronic) COPD (chronic obstructive pulmonary disease) (Chronic) Tobacco dependence (Chronic) Anemia (Chronic) BPH (benign prostatic hyperplasia) (Chronic) Hospital Course and Treatment Summary of Care Provided: This patient was seen in conjunction with NET PROGRAMMER ANALYST, [place]. I have independently interviewed and examined the patient and reviewed pertinent history, examination findings, laboratory and plan of management. I have reviewed the note and agree with the documented findings with the few additional points. In brief, patient is 63 [id number] with multiple comorbidities including severe COPD, chronic iron deficiency anemia/anemia of chronic disease was admitted with dyspnea and wheezing. Patient had left-sided thoracocentesis on 09/26/2020. He had previous thoracocentesis 7 months ago. In the ER was found bloody maroon stool in colostomy bag. Patient has history of small bowel AVM bleeding 1 time EGD was done was found reflux esophagitis with mild Schatzki ring. A small hiatus hernia. Erythematous mucosa in antrum. No clinical signs of involved. No active bleeding. Dr. Lua saw the patient and thinks possible bleeding from small bowel AVM. If it persist, recommended transfer to tertiary care center. 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 Serial H&H around 8.0. Patient lowest hemoglobin 6.9. Patient has elevated ferritin 865 on November 14, 2019. On PPI and sucralfate. Other multiple comorbidities including end-stage renal disease on hemodialysis, coronary artery disease status post three-vessel CABG, COPD and chronic recurrent bilateral pleural effusion with multiple thoracocentesis. Patient follows Dr. Caicedo. Echo in March 2020 EF 55%. Patient is palliative care appropriate candidate but he declined it. Discharge medication reconciliation done. Discharge follow-up instructions completed. Discharge process discussed with the patient and all questions were answered to patient's satisfaction. Total time spent, exact 35 minutes on discharge meds reconciliation, examination, coordination of care with nurses and ancillary staff, review of imaging and blood test and discussion with the patient on follow-up instructions I have discussed my assessment with NET PROGRAMMER ANALYSTHaven and orders have been reviewed.[] Objective: And is aware of multiple medical problems including recurrent pleural effusion, small bowel bleed, chronic shortness of breath and admits poor quality of life. Still he does not want palliative care. Heart rate and blood pressure is controlled. Chronic cough with history of COPD. Physical exam General: Alert, Oriented x3, Cooperative, thin build BMI 24.0 kg/m?. HEENT: Atraumatic, PERRLA, EOMI, Normocephalic Oral: No Gingival or Mucosal Lesions/ Ulcerations Neck: Supple, No JVD, Negative Carotid Bruits Lungs: Air entry diminished in bilateral lung bases. Expiratory rhonchi present in bilateral lungs. Cardiovascular: monitor car operator sinus rhythm. Regular rate, Regular Rhythm, Normal S1, Normal S2, No murmurs Abdomen: Ileostomy bag with liquidy stool, greenish/bilious in nature. Bowel Sounds Present, Soft, Non Tender, Non-Distended : No renal angle tenderness. No suprapubic tenderness. Extremities: No edema, Capillary Refill Less than 3 Seconds Skin: No rashes, No breakdown Musculoskeletal: Mild atrophy of limb extremity and loss of subcutaneous fat. No Tenderness to Palpation of Joints or Extremities Neurological: Cranial nerves II-XII grossly intact, Deep Tendon Reflexes 2+/4 and Symmetrical, Neuro grossly intact Psych/Mental Status: Normal Affect, Appropriate. - Physical Exam Vitals/I&O's: Vital Signs Temp Pulse Resp BP Pulse Ox 97.4 F L 65 18 120/54 L 98 10/03/20 09:10 10/03/20 10:40 10/03/20 10:40 10/03/20 10:40 10/03/20 10:40 Oxygen Flow Rate (L/min) [3] 2 Oxygen Flow Rate (L/min) [2] 3 Oxygen Flow Rate (L/min) 2 Oxygen Delivery Method [3] Nasal Cannula Oxygen Delivery Method [2] Nasal Cannula Oxygen Delivery Method [1 ( Bi-pap Initial Baseline)] Oxygen Delivery Method Nasal Cannula Weight: 152 lb 1.903 oz Body Mass Index (BMI) 24.0 Finger Stick Blood Glucose 200 Intake and Output for Last 24 Hours 10/01/20 10/02/20 10/03/20 23:59 23:59 23:59 Intake Total 400 / 450 1000 / 1000 210 / 210 Output Total 1150 / 1300 800 / 800 500 / 500 Balance -750 / -850 200 / 200 -290 / -290 Microbiology Past 72 Hours 10/01/20 19:00 Sputum, Expectorated/Coughed Gram Stain - Final 10/01/20 19:00 Sputum, Expectorated/Coughed Respiratory Culture - Preliminary GNR lactose wing coverer Gram negative darin Staphylococcus aureus Streptococcus pneumoniae 10/01/20 18:02 Interface Orders Respiratory Panel (PCR) - Final 10/01/20 15:10 Mucosa - Nose SARS-CoV-2 Antigen (Rapid) - Final Laboratory Results 10/03/20 07:20: WBC 7.2, RBC 2.55 L, Hgb 8.1 L, Hct 25.4 L, MCV 99.6 H, MCH 31.8, MCHC 31.9 L, RDW Std Deviation 67.5 H, RDW Coeff of Eleni 18.6 H, Plt Count 167, MPV 10.8, Differential Comment COMMENT 10/03/20 07:20: Sodium 133 L, Potassium 4.6, Chloride 98, Carbon Dioxide 27.0, Anion Gap 8, BUN 65 H, Creatinine 5.83 H, Estim Creat Clear Calc 10.94, Est GFR (MDRD) Af Amer 13 L, Est GFR (MDRD) Non-Af 10 L, BUN/Creatinine Ratio 11.1, Glucose 153 H, Calcium 8.0 L Inpatient E&M: [id number] Disch Hosp
--- NOTE | 2020-10-06 15:16 | CASEMGMT ---
RAYMOND SPENCER Discharge F/U Phone Call LACE: 10 Strata: 3 Discharge date: 10/03/2020 Call date: 10/06/2020 Call time: [id number] Admission dx: Resp failure, CHF exac, bilat effusions, GI bleed Pt states 'not doing the best' since home. Pt still c/o some SOB but does speak in full sentences on the phone at this time. Pt states no questions regarding discharge instructions/medications at this time. Pt states is wearing his 2L continuous at home. Pt states plans to f/u with PCP and this RAYMOND SPENCER advised pt to notify PCP and to come back to [facility] for worsening of symptoms, voices understanding. Pt states only suggestion for [facility] was concern with hospitalist, who 'doesn't know me' but pt states /daughter spoke with someone regarding same. Pt voices no further questions/concerns/needs at this time. SStaten RAYMOND SPENCER
== END 2020-10-03 11:50 | disposition home or self-care (01) | DRG 377 ==
LOC: ED 13:35 → PCU 15:55
PROVIDERS: Internal Medicine Nephrology; Nurse Practitioner Family; Surgery; Admitting Provider Family Medicine; Emergency Provider Emergency Medicine; PCP Nurse Practitioner Family; Visit Provider Internal Medicine
PROC: 0DJ08ZZ Inspection of Upper Intestinal Tract, Via Natural or Artificial Opening Endoscopic (ICD-10-PCS; CPT 43235; principal; 2020-10-02 10:25)
DX: K29.01 Acute gastritis with bleeding (principal); J96.22 Acute and chronic respiratory failure with hypercapnia; N18.6 End stage renal disease; J96.21 Acute and chronic respiratory failure with hypoxia; I50.33 Acute on chronic diastolic (congestive) heart failure; J90 Pleural effusion, not elsewhere classified; I13.2 Hypertensive heart and chronic kidney disease with heart failure and with stage 5 chronic kidney disease, or end stage renal disease; I48.20 Chronic atrial fibrillation, unspecified; J44.1 Chronic obstructive pulmonary disease with (acute) exacerbation; E87.1 Hypo-osmolality and hyponatremia; D62 Acute posthemorrhagic anemia; J98.11 Atelectasis; Q27.33 Arteriovenous malformation of digestive system vessel; K21.00 Gastro-esophageal reflux disease with esophagitis, without bleeding; K44.9 Diaphragmatic hernia without obstruction or gangrene; D63.8 Anemia in other chronic diseases classified elsewhere; K22.2 Esophageal obstruction; L29.9 Pruritus, unspecified; Z99.2 Dependence on renal dialysis; N40.0 Benign prostatic hyperplasia without lower urinary tract symptoms; Z93.3 Colostomy status; D50.9 Iron deficiency anemia, unspecified; E78.00 Pure hypercholesterolemia, unspecified; I73.9 Peripheral vascular disease, unspecified; E78.5 Hyperlipidemia, unspecified; G47.33 Obstructive sleep apnea (adult) (pediatric); I25.2 Old myocardial infarction; F41.9 Anxiety disorder, unspecified; F32.9 Major depressive disorder, single episode, unspecified; I25.10 Atherosclerotic heart disease of native coronary artery without angina pectoris; G25.81 Restless legs syndrome; Z95.1 Presence of aortocoronary bypass graft; Z79.899 Other long term (current) drug therapy; Z87.01 Personal history of pneumonia (recurrent); Z87.19 Personal history of other diseases of the digestive system; F17.210 Nicotine dependence, cigarettes, uncomplicated
CPT/HCPCS: 32555; 36415; 71045; 71046; 80048; 80053; 82803; 83605; 83735; 84484; 85014; 85018; 85025; 85027; 85610; 85730; 86850; 86900; 86901; 86920; 86922; 87070; 87077; 87186; 87205; 87340; 87426; 87633; 88305; 88312; 88313; 88342; 90937; 93005; 94002; 94003; 94640; 94668; 97166; 99285; 99406; J7040; J7120; P9016; A4216; G0257; J2405

== ENCOUNTER → 2020-10-30 09:12 | Outpatient (CLI) | payer MEDICARE, SELFPAY ==
[2020-10-29 15:21] VITALS: BMI 24.1
[2020-10-30] VITALS (8 sets, daily range): BP systolic 126–139; BP diastolic 41–56; PULSE 78–100; RESP 16–20; TEMP 36.2–36.4; O2SAT 100; BMI 24.5
[2020-10-30] MEDS: Ipratropium/Albuterol Sulfate 3 ML AMPUL.NEB INHALATION (13:28)
== END ==
PROVIDERS: PCP Nurse Practitioner Family; Referring Provider Internal Medicine Nephrology; Visit Provider Internal Medicine Nephrology
DX: N18.9 Chronic kidney disease, unspecified (principal); D63.1 Anemia in chronic kidney disease
CPT/HCPCS: 36430; 86850; 86900; 86901; 86920; 86922; 94640; P9016; A4216

== ENCOUNTER 2020-10-30 15:31 | Inpatient (IN) | payer MEDICARE, SELFPAY ==
[2020-10-30] VITALS (11 sets, daily range): BP systolic 122–178; BP diastolic 71–91; PULSE 83–98; RESP 12–34; TEMP 36.5–36.6; O2SAT 96–100; BMI 24.5; BMI 23.8; BMI 25.4
--- NOTE | 2020-10-30 15:50 | EKG12_ITS ---
Test Reason : SOB Blood Pressure : / mmHG Vent. Rate : 091 BPM Atrial Rate : 084 BPM P-R Int : 000 ms QRS Dur : 092 ms QT Int : 378 ms P-R-T Axes : 000 056 201 degrees QTc Int : 464 ms Atrial fibrillation Cannot rule out Anterior infarct , age undetermined ST & T wave abnormality, consider lateral ischemia Abnormal ECG Confirmed by VIKY MONTENEGRO, JOS ([id number]), editor dictionary SHIRA HURD ([id number]) on 11/05/2020 6:19:22 AM Referred By: SULMA Confirmed By:JOS SALMON MD
--- NOTE | 2020-10-30 16:15 | RAD_ITS ---
STUDY: X-RAY CHEST REASON FOR EXAM: Male, 69 years old. Worsening shortness of breath TECHNIQUE: Single AP portable view of the chest. COMPARISON: 10/02/2020 FINDINGS: EKG leads overlie the chest Stable small bilateral pleural effusions slightly more prominent on the right side. Stable bibasilar atelectasis. Sternal cerclage wires and vascular clips are present from a prior sternotomy and coronary artery bypass graft procedure (CABG). Normal mediastinum and justyn. Normal visualized pulmonary arteries. There is atherosclerotic calcification of the aortic arch with tortuosity. There are diffuse degenerative changes of the visualized thoracic spine. There is degenerative osteoarthritis of the bilateral shoulders. There is no demonstrated abnormality of the visualized soft tissue structures of the upper abdomen. RAD/Chest 1 View (Portable) IMPRESSION: Stable interstitial changes in both lung noel with stable bilateral pleural effusions. No interval change Electronically Signed: Pradeep Marquez MD at 16:33 EST , Service support ,
--- NOTE | 2020-10-30 16:15 | ED.VIS.GEN ---
History of Present Illness Chief Complaint: Shortness of Breath Informant: Patient Onset: Days - 2 Narrative: Patient sent down from infusion center for increasing shortness of breath. Patient states he has had cough and worsening short of breath for the past 2 days. History of COPD and CHF on chronic 3 L of oxygen. History of end-stage renal disease on home dialysis every other day followed by Dr. Quintero. He states he had dialysis performed on Tuesday and Tuesday, yesterday it was skipped due to low blood pressure. He states he had blood work on Tuesday had a hemoglobin 6.8, he went to the infusion center today to get blood. He is reported lightheaded symptoms and increasing dyspnea worse with exertion. Denies chest pains. Denies any GI bleed issues. Denies fever loss of taste or smell any vomiting or diarrhea. He states his renal disease came from contrast dye. Denies history of diabetes. Reported that he did receive his blood transfusions prior to coming down here. Prior similar symptoms: Yes Past Medical History - Allergies and Home Meds Allergies/Adverse Reactions: Allergies irbesartan [From Avapro] Allergy (Severe, Verified 10/30/20 15:35) Blisters zolpidem [From Ambien] Adverse Reaction (Severe, Verified 10/30/20 15:35) made me go crazy, memory loss amoxicillin Adverse Reaction (Intermediate, Verified 10/30/20 15:35) PASSES BLOOD IN STOOL TOLERATES ZOSYN PASSES BLOOD IN STOOL gabapentin Adverse Reaction (Unknown, Verified 10/30/20 15:35) emotional metronidazole [From Flagyl] Adverse Reaction (Verified 10/30/20 15:35) pt states he got palpitations and nose bleed. pt states he got palpitations and nose bleed. Past Medical History: - - End-stage renal disease on dialysis, COPD, CHF, hypertension, hyperlipidemia, anemia, atrial fibrillation, BPH, obstructive sleep apnea, coronary disease Surgical History: coronary bypass surgery, tonsillectomy, - - CABG x3, multiple PCI coronary arteries, right common iliac angioplasty and stenting, aVF, tonsillectomy, multiple endoscopies with intervention, end ileostomy creation following right and transverse colectomy for ischemic colitis Smoking Status: Light Smoker (<10/day) - Family History Maternal Family History: Family History (Last Reviewed 10/30/20 @ 18:03 by Haven Carlson NP, RN [employer]) Father CAD (coronary artery disease) Hypertension Kidney disease CVA (cerebral vascular accident) Other Cancer Family History: Reports: Heart Disease Paternal Family History: Family History (Last Reviewed 10/30/20 @ 18:03 by Haven Carlson NP, RN [employer]) Father CAD (coronary artery disease) Hypertension Kidney disease CVA (cerebral vascular accident) Other Cancer Family History: Reports: Heart Disease, Hypertension, Renal Disease Review of Systems General: Denies: Chills, Fever, Sweats Eyes: Denies: Visual changes - bilaterally, Diplopia ENT: Denies: Rhinorrhea, Sore throat Cardiovascular: Denies: Chest pain, Palpitations Respiratory: Reports: Dyspnea, Cough. Denies: Dyspnea on exertion Gastrointestinal: Denies: Abdominal pain, Nausea, Vomiting, Diarrhea, Melena, Hematochezia Genitourinary: Denies: Dysuria, Hematuria, Frequency Musculoskeletal: Denies: Back pain, Extremity Pain Skin: Denies: Rash, Wounds Neurological: Reports: Weakness. Denies: Headache, Numbness Physical Exam Vital Signs/Narrative: Vital Signs Temp Pulse Resp BP Pulse Ox 10/30/20 15:54 99 10/30/20 15:32 97.7 F L 93 18 122/73 H 96 Inital Vital Signs reviewed: Yes General: Well nourished, Well developed, No Acute Distress Head: Normocephalic, Atraumatic Eyes: Perrl, EOMI ENT: Moist mucous membranes, No rhinorrhea Neck: Supple, Nontender Cardiovascular: Regular rate, Regular rhythm, No murmurs Respiratory: No distress, CTA bilaterally, Chest nontender Abdomen: Soft, Nontender, Nondistended, Normal bowel sounds Back: Nontender, Normal Inspection Extremities: Nontender, No edema, - - Left upper extremity: Positive thrill to fistula. Skin: Normal color, No rash Neurological: Alert, Oriented x3, Cranial nerves II-XII grossly intact, Normal Strength, Normal Sensation Psychological: Normal affect, Normal Mood Diagnostic/Tx/Re-eval Clinical Impression(s) from Imaging Studies Chest X-Ray 10/30/20 16:15 IMPRESSION: Stable interstitial changes in both lung noel with stable bilateral pleural effusions. No interval change Electronically Signed: Pradeep Marquez MD at 16:33 EST , Service support , Abnormal Lab Results 10/30/20 10/30/20 10/30/20 16:09 16:09 16:09 WBC 5.2 RBC 2.74 L Hgb 8.9 L Hct 26.5 L MCV 96.7 H MCH 32.5 H MCHC 33.6 RDW Std Deviation 61.6 H RDW Coeff of Eleni 17.6 H Plt Count 120 L MPV 10.3 Immature Gran % (Auto) 0.800 Neut % (Auto) 74.8 H Lymph % (Auto) 14.8 L [place] % (Auto) 7.9 Eos % (Auto) 1.3 Baso % (Auto) 0.4 Absolute Neuts (auto) 3.9 Absolute Lymphs (auto) 0.77 L Nucleated RBC % 0 PT 14.0 INR 1.1 APTT 29.9 Sodium 129 L Potassium 4.7 Chloride 95 L Carbon Dioxide 27.0 Anion Gap 7 BUN 69 H Creatinine 7.51 H* Estim Creat Clear Calc 8.50 Est GFR (MDRD) Af Amer 9 L Est GFR (MDRD) Non-Af 8 L BUN/Creatinine Ratio 9.2 L Glucose 101 Calcium 8.3 L Total Bilirubin 2.30 H AST 14 L ALT 17 Alkaline Phosphatase 130 H Total Protein 6.8 Albumin 2.9 L Globulin 3.9 Albumin/Globulin Ratio 0.7 L - Medical Decision Making Patient vital signs stable pulse ox stable on 3 L of oxygen he was in no respiratory distress. EKG sinus rate of 91 with no acute changes. Labs normal white count hemoglobin 8.9 he is status post blood transfusion. His creatinine was elevated however his end-stage renal disease with a normal potassium. Chest x-ray 1 view reviewed by myself and read by radiology bilateral pleural effusions is chronic in nature. Covid testing obtained and pending. With his reported increasing dyspnea with pleural effusions, I feel he would benefit from hospitalization. I spoke with hospitalist Dr. Suggs for admission. ED Disposition - Plan for ED Patient: Disposition: Acute Care Hospital [facility] Diagnosis: Bilateral pleural effusion, ESRD (end stage renal disease) on dialysis, Anemia
[2020-10-30 16:45] LABS: Absolute Lymphocyte Count 0.77 X10^3/uL (0.83-4.51); Absolute Neutrophil Count 3.9 X10^3/uL (2.0-7.7); Basophil# 0.02 X10^3/uL; Basophil% 0.4 % (0-1); Eosinophil# 0.07 X10^3/uL; Eosinophils% 1.3 % (0-5); Hematocrit 26.5 % (40-54); Hemoglobin 8.9 g/dL (13.0-16.5); Lymphocyte # 0.77 X10^3/ul (4.0); Lymphocyte % 14.8 % (19-41); Mean Corp Hgb Conc 33.6 g/dL (32-36); Mean Corpuscular Hgb 32.5 pg (27.0-32.0); Mean Corpuscular Volume 96.7 fL (80-94); Mean Platelet Vol. 10.3 fl (6.2-12.0); Monocyte# 0.41 X10^3/uL; Monocyte% 7.9 % (0-10); NRBC Flagged by Analyzer 0 % (0-5); Neutrophil # 3.89 X10^3/uL (2.7-7.7); Neutrophil % 74.8 % (47-70); Platelet Count 120 K/mm3 (150-450); RBC Distribution Width CV 17.6 % (11.6-14.6); RBC Distribution Width SD 61.6 fl (35.1-43.9); Red Blood Count 2.74 M/mm3 (4.6-6.2); White Blood Count 5.2 K/mm3 (4.4-11.0)
[2020-10-30 16:47] LABS: International Normalized Ratio 1.1
[2020-10-30 16:48] LABS: Partial Thromboplast Time 29.9 Seconds (24.1-36.2)
[2020-10-30 17:04] LABS: ALB/GLOB Ratio 0.7 RATIO (0.9-2.4); AST(SGOT) 14 U/L (15-37); Alanine Aminotransfer ALT/SGPT 17 U/L (16-61); Albumin, Serum 2.9 g/dL (3.2-5.0); Alkaline Phosphatase 130 U/L (45-117); Anion Gap 7 (5-15); BUN 69 mg/dL (7-18); BUN/Creat Ratio 9.2 RATIO (10-20); Calcium,Total 8.3 mg/dL (8.5-10.1); Chloride 95 mmol/L (98-107); Creatinine, Serum 7.51 mg/dL (0.70-1.30); EST Glomerular Filtration Rate 8 mL/min (>60); Est Glom Filt Rate - Afr Amer 9 mL/min (>60); Globulin 3.9 g/dL (2.2-4.2); Glucose 101 mg/dL (74-106); Potassium 4.7 mmol/L (3.5-5.1); Protein, Total 6.8 g/dL (6.4-8.2); Sodium Level 129 mmol/L (136-145)
--- NOTE | 2020-10-30 17:49 | NURSING ---
PCU OBS ESRD ON HD, SOB, PLEURAL EFFUSIONS WHITE
--- NOTE | 2020-10-30 17:54 | PCM.HP.STD ---
Problem List (1) Acute on chronic respiratory failure with hypoxia and hypercapnia Status: Acute (2) Acute lower GI bleeding Status: Resolved (3) Hyponatremia Status: Chronic (4) Bilateral pleural effusion Status: Acute (5) COPD exacerbation Status: Acute (6) Anemia of unknown etiology Status: Chronic (7) Pleural effusion Status: Acute (8) ESRD (end stage renal disease) on dialysis Status: Chronic (9) Transudative pleural effusion Status: Chronic (10) s/p fistulogram Status: Resolved (11) history of surgically created arteriovenous fistula Status: Resolved (12) Chronic atrial fibrillation Status: Chronic (13) Problem with dialysis access Status: Chronic Qualifiers: Encounter type: initial encounter Qualified Code(s): T82.898A - Other specified complication of vascular prosthetic devices, implants and grafts, initial encounter (14) RAVEN (obstructive sleep apnea) Status: Chronic Comment: AHI 42.6 (15) History of non-ST elevation myocardial infarction (NSTEMI) Status: Chronic (16) Stented coronary artery Status: Resolved Comment: 2003, JASON to circumflex ; 10/13/2009 tsfer from [facility] to [facility], total of 5 bare metal stents to RCA per Dr. Barrientos @ [facility]: 3.5 X 18 Manager Digital, followed distally by 3.0 X12 Manager Digital to distal RCA;3.5 X 15 Manager Digital, followed proximally by 4.0 X 18 Manager Digital to Mid RCA; 4.0 X 18 Manager Digital to Proximal RCA (17) S/P CABG x 3 Status: Resolved Comment: [facility] per Dr. Osito Hernandez: NICHOLAS to LAD, reverse SVG to OMbranch of CX, reverse SVG to PDA of RCA. PDA endarterectomy. (18) Status post peripheral artery angioplasty with insertion of stent Status: Resolved Comment: Right common iliac, [facility] (19) Atherosclerotic heart disease of hoopa coronary artery without angina pectoris Status: Chronic Comment: 2003, JASON to circumflex ; 10/10/2009 tsfer from [facility] to [facility], total of 5 bare metal stents to RCA; CABG X 3 vessels @ [facility] 01/31/2011 (critical left main and restenosis of RCA stents) (20) Diastolic CHF Status: Chronic Qualifiers: Heart failure chronicity: acute Qualified Code(s): I50.31 - Acute diastolic (congestive) heart failure (21) HLD (hyperlipidemia) Status: Chronic Qualifiers: Hyperlipidemia type: unspecified Qualified Code(s): E78.5 - Hyperlipidemia, unspecified (22) HTN (hypertension) Status: Chronic Qualifiers: Hypertension type: essential hypertension Qualified Code(s): I10 - Essential (primary) hypertension (23) PAD (peripheral artery disease) Status: Chronic (24) COPD (chronic obstructive pulmonary disease) Status: Chronic Qualifiers: COPD type: unspecified COPD Qualified Code(s): J44.9 - Chronic obstructive pulmonary disease, unspecified (25) Tobacco dependence Status: Chronic (26) Anemia Status: Chronic Qualifiers: Anemia type: unspecified type Qualified Code(s): D64.9 - Anemia, unspecified (27) BPH (benign prostatic hyperplasia) Status: Chronic Qualifiers: Lower urinary tract symptom presence: unspecified whether lower urinary tract symptoms present Qualified Code(s): N40.0 - Benign prostatic hyperplasia without lower urinary tract symptoms History of Present Illness Date of Admission: 10/30/20 Chief Complaint: Shortness of breath. The patient is a 69 year old M who presents to the emergency room due to shortness of breath. Patient reports worsening shortness of breath over the past 2 to 3 days. He missed dialysis yesterday due to low blood pressure. Patient presented to infusion center today to receive blood as he was told he had a hemoglobin of 6.8 on Tuesday on outpatient lab testing. He was referred to the emergency room for evaluation due to lightheadedness and increased dyspnea. He denies cough, fever, chills. Reports wheezing. Reports increased lower extremity swelling. Patient reports he has BiPAP at home and feels more comfortable when wearing BiPAP. He is on chronic supplemental oxygen due to chronic heart failure with preserved ejection fraction and chronic COPD. He has a past medical history of chronic approximate respiratory failure on 3 L nasal cannula at baseline, chronic heart failure with preserved ejection fraction, chronic pleural effusions, severe COPD, end-stage renal disease on hemodialysis, chronic iron deficiency anemia/anemia of chronic disease, CAD with history of CABG x3, BPH, hypertension, history of colonic ischemia status post ileostomy, anxiety, PAD/PVD, hyperlipidemia, RAVEN, chronic atrial fibrillation. Past Medical History Past Medical History (Chronic Problems): Chronic Problems (Last Reviewed 10/29/20 @ 14:15 by Haven Arreguin) Hyponatremia (Chronic) Anemia of unknown etiology (Chronic) ESRD (end stage renal disease) on dialysis (Chronic) Transudative pleural effusion (Chronic) Chronic atrial fibrillation (Chronic) Problem with dialysis access (Chronic) RAVEN (obstructive sleep apnea) (Chronic) AHI 42.6 History of non-ST elevation myocardial infarction (NSTEMI) (Chronic 01/21/11) Atherosclerotic heart disease of hoopa coronary artery without angina pectoris (Chronic) 2004, JASON to circumflex ; 10/10/2009 tsfer from [facility] to [facility], total of 5 bare metal stents to RCA; CABG X 3 vessels @ [facility] 01/31/2011 (critical left main and restenosis of RCA stents) Diastolic CHF (Chronic) HLD (hyperlipidemia) (Chronic) HTN (hypertension) (Chronic) PAD (peripheral artery disease) (Chronic) COPD (chronic obstructive pulmonary disease) (Chronic) Tobacco dependence (Chronic) Anemia (Chronic) BPH (benign prostatic hyperplasia) (Chronic) Medical History: Medical History (Last Reviewed 10/29/20 @ 14:15 by Haven Arreguin) Contact dermatitis (Acute) L25.9 ESRD (end stage renal disease) (Chronic) N18.6 History of non-ST elevation myocardial infarction (NSTEMI) (Chronic) Onset Date: 01/21/11 I25.2 Atherosclerotic heart disease of hoopa coronary artery without angina pectoris (Chronic) I25.10 2003, JASON to circumflex ; 10/10/2009 tsfer from [facility] to [facility], total of 5 bare metal stents to RCA; CABG X 3 vessels @ [facility] 01/31/2011 (critical left main and restenosis of RCA stents) Diastolic CHF (Chronic) I50.30 HLD (hyperlipidemia) (Chronic) E78.5 HTN (hypertension) (Chronic) I10 PAD (peripheral artery disease) (Chronic) I73.9 COPD (chronic obstructive pulmonary disease) (Chronic) J44.9 Tobacco dependence (Chronic) F17.200 Anemia (Chronic) D64.9 BPH (benign prostatic hyperplasia) (Chronic) N40.0 Allergies irbesartan [From Avapro] Allergy (Severe, Verified 10/30/20 15:35) Blisters zolpidem [From Ambien] Adverse Reaction (Severe, Verified 10/30/20 15:35) made me go crazy, memory loss amoxicillin Adverse Reaction (Intermediate, Verified 10/30/20 15:35) PASSES BLOOD IN STOOL TOLERATES ZOSYN PASSES BLOOD IN STOOL gabapentin Adverse Reaction (Unknown, Verified 10/30/20 15:35) emotional metronidazole [From Flagyl] Adverse Reaction (Verified 10/30/20 15:35) pt states he got palpitations and nose bleed. pt states he got palpitations and nose bleed. Home Medications: Ambulatory Orders Medication Instructions Recorded Budesonide Aerosol [Pulmicort 1 inh INHALATION BID 07/23/19 Respules] Ipratropium/Albuterol Sulfate 1 inh INHALATION Q4H PRN PRN 07/23/19 [Iprat-Albut 0.5-3(2.5) mg/3 ml] Rosuvastatin Calcium [Crestor] 40 mg PO QHS 07/23/19 hydrOXYzine pamoate capsule 25 mg PO 4X/DAY PRN PRN #30 cap 02/07/20 [Vistaril pamoate capsule] ALPRAZolam [Xanax] 1 mg PO BID 10/01/20 Cholecalciferol (Vitamin D3) 2,000 unit PO DAILY 10/01/20 [D3-2000] [place]-3 Fatty Acids/Fish Oil [Fish 1 ea PO DAILY 10/01/20 Oil 1,000 mg Capsule] Sucralfate 1 gm PO BID 10/01/20 Pantoprazole Sodium [Protonix] 40 mg PO BID #60 tab 10/03/20 carvedilol 25 mg tablet 25 mg PO BID 10/29/20 Surgical History: Surgical History (Last Reviewed 10/29/20 @ 14:15 by Haven Arreguin) s/p fistulogram (Resolved) Onset Date: ~09/28/18 history of surgically created arteriovenous fistula (Resolved) Stented coronary artery (Resolved) Z95.5 2003, JASON to circumflex ; 10/13/2009 tsfer from [facility] to [facility], total of 5 bare metal stents to RCA per Dr. Barrientos @ [facility]: 3.5 X 18 Manager Digital, followed distally by 3.0 X12 Manager Digital to distal RCA;3.5 X 15 Manager Digital, followed proximally by 4.0 X 18 Manager Digital to Mid RCA; 4.0 X 18 Manager Digital to Proximal RCA S/P CABG x 3 (Resolved) Onset Date: 01/26/[address] [facility] per Dr. Osito Hernandez: NICHOLAS to LAD, reverse SVG to OMbranch of CX, reverse SVG to PDA of RCA. PDA endarterectomy. Status post peripheral artery angioplasty with insertion of stent (Resolved) Onset Date: ~2010 Z95.820 Right common iliac, [facility] Surgical History: coronary bypass surgery, tonsillectomy, - - CABG x3, multiple PCI coronary arteries, right common iliac angioplasty and stenting, aVF, tonsillectomy, multiple endoscopies with intervention, end ileostomy creation following right and transverse colectomy for ischemic colitis Psychiatric History: Anxiety Lives: Spouse/ Significant Other Smoking Status: Light Smoker (<10/day) Tobacco Use: Cigarettes Alcohol: None Drugs: None - *Family History Maternal Family History: Family History (Last Reviewed 10/30/20 @ 18:03 by Haven Carlson [employer]IOR [employer] MANAGER, S[employer]IOR [employer]GER[employer]) Father CAD (coronary artery disease) Hypertension Kidney disease CVA (cerebral vascular accident) Other Cancer History Items: Heart Disease Paternal Family History: Family History (Last Reviewed 10/30/20 @ 18:03 by Haven Carlson NP, S[employer]IOR [employer]GER[employer]) Father CAD (coronary artery disease) Hypertension Kidney disease CVA (cerebral vascular accident) Other Cancer History Items: Heart Disease, Hypertension, Renal Disease Review of Systems Constitutional: Denies: Chills, Fever, Weight Change HEENT: Denies: Head Aches, Sinus Congestion, Sinus Drainage Cardiovascular: Reports: Edema, Light Headedness. Denies: Chest Pain, Palpitations, Syncope Respiratory: Reports: Shortness of Breath, Wheezing. Denies: Cough, Sputum production Gastrointestinal: Denies: Abdominal Pain, Nausea, Vomiting Genitourinary: Denies: Dysuria Musculoskeletal: Denies: Joint Pain, Joint Tenderness Skin: Denies: Rash, Wounds Neurological: Denies: Numbness, Tingling, Focal weakness Psychiatric: Reports: Anxiety, Depression. Denies: Homicidal Ideations, Suicidal Ideations Hematologic/ Lymphatic: Denies: Easy Bruising, Easy Bleeding VTE Information - Inpt Only VTE Present on Admission: No VTE Mechan Device Prophylaxis: None VTE Pharm Prophylaxis ordered?: Yes - Physical Exam Vitals/I&O's: Vital Signs Temp Pulse Resp BP Pulse Ox 97.7 F L 92 18 168/71 H 99 10/30/20 17:40 10/30/20 17:40 10/30/20 17:40 10/30/20 17:40 10/30/20 17:40 Oxygen Flow Rate (L/min) 4 Oxygen Delivery Method Nasal Cannula Weight: 148 lb Body Mass Index (BMI) 23.8 Finger Stick Blood Glucose 200 General: Alert, Oriented x3, Cooperative, - - Appears dyspneic, uncomfortable HEENT: Atraumatic, PERRLA, EOMI, Normocephalic Oral: Dry Mucosa Neck: Supple, No JVD, Negative Carotid Bruits Lungs: Diminished, Wheezes Cardiovascular: Regular rate, No murmurs Abdomen: Bowel Sounds Present, Soft, Non Tender, Non-Distended Extremities: No clubbing, No cyanosis, Capillary Refill Less than 3 Seconds, Edema - Bilateral lower extremities, left greater than right Skin: No rashes, No breakdown Musculoskeletal: No Tenderness to Palpation of Joints or Extremities Neurological: Cranial nerves II-XII grossly intact, Neuro grossly intact Psych/Mental Status: Anxious Microbiology Past 72 Hours 10/30/20 16:09 Mucosa - Nose SARS-CoV-2 Antigen (Rapid) - Final Laboratory Results 10/30/20 16:09: WBC 5.2, RBC 2.74 L, Hgb 8.9 L, Hct 26.5 L, MCV 96.7 H, MCH 32.5 H, MCHC 33.6, RDW Std Deviation 61.6 H, RDW Coeff of Eleni 17.6 H, Plt Count 120 L, MPV 10.3, Immature Gran % (Auto) 0.800, Neut % (Auto) 74.8 H, Lymph % (Auto) 14.8 L, [place] % (Auto) 7.9, Eos % (Auto) 1.3, Baso % (Auto) 0.4, Absolute Neuts (auto) 3.9, Absolute Lymphs (auto) 0.77 L, Nucleated RBC % 0 10/30/20 16:09: PT 14.0, INR 1.1, APTT 29.9 10/30/20 16:09: Sodium 129 L, Potassium 4.7, Chloride 95 L, Carbon Dioxide 27.0, Anion Gap 7, BUN 69 H, Creatinine 7.51 H*, Estim Creat Clear Calc 8.50, Est GFR (MDRD) Af Amer 9 L, Est GFR (MDRD) Non-Af 8 L, BUN/Creatinine Ratio 9.2 L, Glucose 101, Calcium 8.3 L, Total Bilirubin 2.30 H, AST 14 L, ALT 17, Alkaline Phosphatase 130 H, Total Protein 6.8, Albumin 2.9 L, Globulin 3.9, Albumin/Globulin Ratio 0.7 L Assessment/Plan All Active Problems (Last Reviewed 10/29/20 @ 14:15 by Haven Arreguin) Acute on chronic respiratory failure with hypoxia and hypercapnia (Acute) Bilateral pleural effusion (Acute) COPD exacerbation (Acute) Pleural effusion (Acute) s/p fistulogram (Resolved ~09/28/18) history of surgically created arteriovenous fistula (Resolved) Stented coronary artery (Resolved) S/P CABG x 3 (Resolved 01/26/11) Status post peripheral artery angioplasty with insertion of stent (Resolved ~2010) Acute lower GI bleeding (Resolved) 1. Acute on chronic hypoxic respiratory failure secondary to exacerbation of severe COPD, complicated by chronic heart failure and end-stage renal disease with associated chronic bilateral pleural effusions-IV Solu-Medrol. Albuterol and DuoNeb aerosols. BiPAP as tolerated, continue home settings. Patient is on 3 L nasal cannula continuously at baseline. Following with Dr. Caicedo, pulmonary medicine. Continue supplement oxygen to maintain O2 at or above 90%. Covid negative. 2. Bilateral pleural effusions, secondary to chronic CHF and end-stage renal disease as noted above-appear stable per x-ray. Recent visit with pulmonary medicine pleurodesis versus Pleurx catheter was discussed. 3. Chronic heart failure with preserved ejection fraction- Echocardiogram in October 2019 demonstrated an EF of 55%. 4. End-stage renal disease-consult nephrology for dialysis. Missed dialysis 10/29/2020. 5. Chronic iron deficiency anemia/anemia of chronic disease-requiring blood transfusion as outpatient 10/30/2020 due to reported hemoglobin of 6.2. Hemoglobin currently stable, 8.9. Trend CBC. Patient had recent EGD 10/02/2020 and was evaluated by general surgery. EGD showed grade a reflux esophagitis. Continue Carafate, PPI. 6. CAD status post CABG X3-continue statin, metoprolol. 7. BPH-continue Flomax regimen. 8. Hypertension-stable, continue metoprolol regimen. As needed hydralazine for systolic blood pressure greater than 160. Patient reports blood pressure has been low at dialysis however BP elevated on admission. 9. History of colonic ischemia/history of GI bleed-November 2017 patient had a ischemic right colon and proximal transverse colon and underwent ileostomy. Continue PPI, Carafate as noted above. 10. Anxiety-on scheduled dose Xanax. 11. PAD/PVD-continue statin. Previously on aspirin which was discontinued. 12. Hyperlipidemia-continue statin regimen. 13. RAVEN-continue BiPAP nightly and PRN. 14. Chronic atrial fibrillation-anticoagulation contraindicated. Continue beta-lesa. DVT prophylaxis-SCDs This patient was seen by SEUN Obregon under the supervision of Dr. Suggs.
--- NOTE | 2020-10-30 18:44 | VDLE_ITS ---
Reason For Study: LLE SWELLING Procedure LEFT This is a venous duplex using B-mode, color GSV is normal. flow and spectral Doppler. CFV is compressible, spontaneous, competent, Exam performed portable in patient room. and demonstrates pulsatile venous flow. A preliminary report was called and/or faxed FV is compressible, spontaneous, competent to PCU. and demonstrates pulsatile venous flow. POP V is compressible, spontaneous, competent and demonstrates pulsatile venous flow. T/P Trunk is compressible. PTV is compressible. LT PerV is compressible. Interpretation Summary There is no evidence of left lower extremity deep vein thrombosis. Right great saphenous vein appears patent and compressible segmentally. Pulsatile venous flow noted consistent with proximal venous hypertension or occlusion. Clinical correlation would be appropriate. Ordering Physician: Haven Carlson Referring Physician: Tania Berger Performed By: Ling Nelson, ALESSIA, RVT
[2020-10-30] MEDS: Ipratropium/Albuterol Sulfate 3 ML AMPUL.NEB INHALATION ×2 (18:57→22:50)
[2020-10-31] VITALS (13 sets, daily range): BP systolic 133–161; BP diastolic 57–77; PULSE 60–102; RESP 12–80; TEMP 36.5–37.3; O2SAT 95–100
[2020-10-31] MEDS: Atorvastatin Calcium 80 MG Tablet PO (02:24)
[2020-10-31] MEDS: Carvedilol 25 MG Tablet PO ×2 (02:24→14:55)
[2020-10-31] MEDS: Sucralfate 1 GM Tablet PO ×2 (02:24→06:27)
[2020-10-31] MEDS: ALPRAZolam 0.5 MG Tablet 1 MG PO (02:25)
[2020-10-31] MEDS: Pantoprazole Sodium 40 MG Tablet PO ×2 (02:25→14:55)
--- NOTE | 2020-10-31 02:26 | NURSING ---
All meds given late because patient wanted to wait until after dialysis
[2020-10-31 06:00] LABS: Absolute Lymphocyte Count 0.39 X10^3/uL (0.83-4.51); Absolute Neutrophil Count 4.1 X10^3/uL (2.0-7.7); Basophil# 0.01 X10^3/uL; Basophil% 0.2 % (0-1); Hemoglobin 8.3 g/dL (13.0-16.5); Lymphocyte # 0.39 X10^3/ul (4.0); Lymphocyte % 8.6 % (19-41); Mean Corp Hgb Conc 33.2 g/dL (32-36); Mean Corpuscular Volume 96.5 fL (80-94); Mean Platelet Vol. 10.2 fl (6.2-12.0); Monocyte# 0.04 X10^3/uL; Monocyte% 0.9 % (0-10); NRBC Flagged by Analyzer 0 % (0-5); Neutrophil # 4.05 X10^3/uL (2.7-7.7); Neutrophil % 89.9 % (47-70); POSITIVE DIFFERENTIAL YES; Platelet Count 111 K/mm3 (150-450); RBC Distribution Width CV 17.5 % (11.6-14.6); RBC Distribution Width SD 62.7 fl (35.1-43.9); Red Blood Count 2.59 M/mm3 (4.6-6.2); White Blood Count 4.5 K/mm3 (4.4-11.0)
[2020-10-31 06:11] LABS: Differential Indicated SCAN CRITERIA MET
[2020-10-31 06:33] LABS: Differential Comment SCANNED
[2020-10-31 06:38] LABS: Anion Gap 11 (5-15); BUN 76 mg/dL (7-18); BUN/Creat Ratio 9.4 RATIO (10-20); Calcium,Total 8.4 mg/dL (8.5-10.1); Chloride 94 mmol/L (98-107); Creatinine, Serum 8.12 mg/dL (0.70-1.30); EST Glomerular Filtration Rate 7 mL/min (>60); Est Glom Filt Rate - Afr Amer 9 mL/min (>60); Estimated Creatinine Clearance 7.86 ml/min; Glucose 109 mg/dL (74-106); Sodium Level 128 mmol/L (136-145)
[2020-10-31] MEDS: Ipratropium/Albuterol Sulfate 3 ML AMPUL.NEB INHALATION (07:11)
[2020-10-31 13:29] LABS: Hepatitis B Surface Antibody Non-Reactive; Hepatitis B Surface Antigen Non-Reactive (Nonreactive)
--- NOTE | 2020-10-31 14:24 | DIALYSIS ---
Pt completed hemodialysis via left arm AV fistula with 2200ml fluid removed. Stasis obtained after needles removed. Pt tolerated treatment without difficulty.
--- NOTE | 2020-10-31 14:28 | PCM.CONS.R ---
Consultation - Renal 10/31/20 PCP/ Referring MD: Requesting physician: [] Primary care physician: SEUN Poe Reason for Consultation:: esrd - History of Present Illness History of Present Illness: The patient is a 69 year old M with a past medical history as below who presented with a chief complaint of shortness of breath gradually worsening for 2 to 3 days. He dialyzes at home every other day. He missed dialysis 2 days ago because of his low blood pressure. He was sent to the transfusion center for hemoglobin of 6.8 on Tuesday. From there he was referred to the emergency room for evaluation of dizziness and dyspnea. He was started on BiPAP yesterday. After dialysis which removed more than 2 L of fluid last night he came off the BiPAP. Currently he feels much better and he is tolerating dialysis well which is almost done. He wants to go home and states that his shortness of breath is at baseline. He has no fever no chills no chest pain no other complaints. No nausea vomiting diarrhea abdominal pain. Past medical history of chronic pleural effusion chronic respiratory failure status never nasal cannula home heart failure preserved ejection fraction severe COPD ESRD on dialysis at home iron deficiency and anemia of chronic disease coronary artery disease s/p CABG x3 BPH hypertension colonic ischemia s/p ileostomy anxiety PAD dyslipidemia RAVEN A. fib. - Allergies Allergies: Allergies irbesartan [From Avapro] Allergy (Severe, Verified 10/30/20 15:35) Blisters zolpidem [From Ambien] Adverse Reaction (Severe, Verified 10/30/20 15:35) made me go crazy, memory loss amoxicillin Adverse Reaction (Intermediate, Verified 10/30/20 15:35) PASSES BLOOD IN STOOL TOLERATES ZOSYN PASSES BLOOD IN STOOL gabapentin Adverse Reaction (Unknown, Verified 10/30/20 15:35) emotional metronidazole [From Flagyl] Adverse Reaction (Verified 10/30/20 15:35) pt states he got palpitations and nose bleed. pt states he got palpitations and nose bleed. - Current Medications Current Medications: Current Medications Acetaminophen (Acetaminophen 325 Mg Tablet) 650 mg PO Q6H PRN PRN PRN Reason: Pain Score 1-10/Temp > 100.7 F Albuterol Sulfate (Albuterol 2.5 Mg/3 Ml Vial.Neb.) 2.5 mg INHALATION Q2H PRN PRN PRN Reason: SHORTNESS OF BREATH Albuterol/Ipratropium (Ipratropium/Albuterol Sulfate 3 Ml Ampul.Neb) 3 ml INHALATION Q4H.RT [facility] Last Admin: 10/31/20 07:11 Dose: 3 ml Documented by: Alprazolam (Alprazolam 0.5 Mg Tablet) 1 mg PO BID [facility] Last Admin: 10/31/20 02:25 Dose: 1 mg Documented by: Atorvastatin Calcium (Atorvastatin Calcium 80 Mg Tablet) 80 mg PO QHS [facility] Last Admin: 10/31/20 02:24 Dose: 80 mg Documented by: Carvedilol (Carvedilol 25 Mg Tablet) 25 mg PO BID [facility] Last Admin: 10/31/20 02:24 Dose: 25 mg Documented by: Cholecalciferol (Cholecalciferol (Vit D3) 1,000 Unit (25mcg)) 2,000 unit PO DAILY [facility] Hydralazine HCl (Hydralazine 20 Mg/Ml Vial) 5 mg IV Q6H PRN PRN PRN Reason: BLOOD PRESSURE Lidocaine (Lidocaine 5% 35gm Tube) 1 applic TOPICAL PRN PRN PRN Reason: AVF Methylprednisolone (Methylprednisolone 40 Mg/Ml Vial) 40 mg IV Q8 [facility] Last Admin: 10/31/20 06:27 Dose: 40 mg Documented by: Morphine Sulfate (Morphine 2 Mg/Ml Syringe) 1 mg IV Q3H PRN PRN PRN Reason: Pain Score 6-10 Ondansetron HCl (Ondansetron 4 Mg/2 Ml Vial) 4 mg IV Q8H PRN PRN PRN Reason: NAUSEA/VOMITING Oxycodone HCl (Oxycodone 5 Mg Tablet) 5 mg PO Q4H PRN PRN PRN Reason: Pain Score 4-5 Pantoprazole Sodium (Pantoprazole Sodium 40 Mg Tablet) 40 mg PO BID [facility] Last Admin: 10/31/20 02:25 Dose: 40 mg Documented by: Sucralfate (Sucralfate 1 Gm Tablet) 1 gm PO BID@0700,2200 [facility] Last Admin: 10/31/20 06:27 Dose: 1 gm Documented by: - Past Medical History Past Medical History (Chronic Problems): Chronic Problems (Last Reviewed 10/29/20 @ 14:15 by Haven Arreguin) Hyponatremia (Chronic) Anemia of unknown etiology (Chronic) ESRD (end stage renal disease) on dialysis (Chronic) Transudative pleural effusion (Chronic) Chronic atrial fibrillation (Chronic) Problem with dialysis access (Chronic) RAVEN (obstructive sleep apnea) (Chronic) AHI 42.6 History of non-ST elevation myocardial infarction (NSTEMI) (Chronic 01/21/11) Atherosclerotic heart disease of [place] coronary artery without angina pectoris (Chronic) 2003, JASON to circumflex ; 10/10/2009 tsfer from [facility] to [facility], total of 5 bare metal stents to RCA; CABG X 3 vessels @ [facility] 01/31/2011 (critical left main and restenosis of RCA stents) Diastolic CHF (Chronic) HLD (hyperlipidemia) (Chronic) HTN (hypertension) (Chronic) PAD (peripheral artery disease) (Chronic) COPD (chronic obstructive pulmonary disease) (Chronic) Tobacco dependence (Chronic) Anemia (Chronic) BPH (benign prostatic hyperplasia) (Chronic) - Past Surgical History Surgical History: coronary bypass surgery, tonsillectomy, - - CABG x3, multiple PCI coronary arteries, right common iliac angioplasty and stenting, aVF, tonsillectomy, multiple endoscopies with intervention, end ileostomy creation following right and transverse colectomy for ischemic colitis - Social History Smoking Status: Light Smoker (<10/day) Alcohol: None Drugs: None - Family History Maternal Family History: Family History (Last Reviewed 10/30/20 @ 18:03 by Haven Carlson SOLAR ENERGY INSTALLATION MANAGER, SOLAR ENERGY INSTALLATION MANAGER-C) Father CAD (coronary artery disease) Hypertension Kidney disease CVA (cerebral vascular accident) Other Cancer History Items: Heart Disease Paternal Family History: Family History (Last Reviewed 10/30/20 @ 18:03 by Haven Carlson SOLAR ENERGY INSTALLATION MANAGER, SOLAR ENERGY INSTALLATION MANAGER-C) Father CAD (coronary artery disease) Hypertension Kidney disease CVA (cerebral vascular accident) Other Cancer History Items: Heart Disease, Hypertension, Renal Disease Patient Problems: Active and Suspected Problems (Last Reviewed 10/29/20 @ 14:15 by Haven Arreguin) Acute on chronic respiratory failure with hypoxia and hypercapnia (Acute) Bilateral pleural effusion (Acute) COPD exacerbation (Acute) Pleural effusion (Acute) - Physical Exam Vitals/I&O's: Vital Signs Temp Pulse Resp BP Pulse Ox 99.1 F 88 80 H 152/77 H 100 10/31/20 14:22 10/31/20 14:22 10/31/20 14:22 10/31/20 14:22 10/31/20 10:00 Oxygen Flow Rate (L/min) 4 Oxygen Delivery Method Nasal Cannula Weight: 71.4 kg Body Mass Index (BMI) 25.4 Finger Stick Blood Glucose 200 Intake and Output for Last 24 Hours 10/29/20 10/30/20 10/31/20 23:59 23:59 23:59 Intake Total 310 / 310 Output Total 4100 / 4100 Balance -3790 / -3790 General: Alert, Cooperative HEENT: Atraumatic, Normocephalic, - - nc Neck: Supple, Trachea Midline Lungs: Clear to auscultation, Normal air movement Cardiovascular: Normal S1, Normal S2 Abdomen: Bowel Sounds Present, Soft, Non Tender Skin: No rashes Microbiology Past 72 Hours 10/30/20 20:25 Mucosa - Nasopharyngeal Respiratory Panel (PCR) - Final 10/30/20 16:09 Mucosa - Nose SARS-CoV-2 Antigen (Rapid) - Final Laboratory Results 10/30/20 16:09: WBC 5.2, RBC 2.74 L, Hgb 8.9 L, Hct 26.5 L, MCV 96.7 H, MCH 32.5 H, MCHC 33.6, RDW Std Deviation 61.6 H, RDW Coeff of Eleni 17.6 H, Plt Count 120 L, MPV 10.3, Immature Gran % (Auto) 0.800, Neut % (Auto) 74.8 H, Lymph % (Auto) 14.8 L, [place] % (Auto) 7.9, Eos % (Auto) 1.3, Baso % (Auto) 0.4, Absolute Neuts (auto) 3.9, Absolute Lymphs (auto) 0.77 L, Nucleated RBC % 0 10/30/20 16:09: PT 14.0, INR 1.1, APTT 29.9 10/30/20 16:09: Sodium 129 L, Potassium 4.7, Chloride 95 L, Carbon Dioxide 27.0, Anion Gap 7, BUN 69 H, Creatinine 7.51 H*, Estim Creat Clear Calc 8.50, Est GFR (MDRD) Af Amer 9 L, Est GFR (MDRD) Non-Af 8 L, BUN/Creatinine Ratio 9.2 L, Glucose 101, Calcium 8.3 L, Total Bilirubin 2.30 H, AST 14 L, ALT 17, Alkaline Phosphatase 130 H, Total Protein 6.8, Albumin 2.9 L, Globulin 3.9, Albumin/Globulin Ratio 0.7 L 10/31/20 05:40: WBC 4.5, RBC 2.59 L, Hgb 8.3 L, Hct 25.0 L, MCV 96.5 H, MCH 32.0, MCHC 33.2, RDW Std Deviation 62.7 H, RDW Coeff of Eleni 17.5 H, Plt Count 111 L, MPV 10.2, Immature Gran % (Auto) 0.400, Neut % (Auto) 89.9 H, Lymph % (Auto) 8.6 L, [place] % (Auto) 0.9, Eos % (Auto) 0.0, Baso % (Auto) 0.2, Absolute Neuts (auto) 4.1, Absolute Lymphs (auto) 0.39 L, Nucleated RBC % 0, Differential Comment SCANNED 10/31/20 05:40: Sodium 128 L, Potassium 5.0, Chloride 94 L, Carbon Dioxide 23.0, Anion Gap 11, BUN 76 H, Creatinine 8.12 H*, Estim Creat Clear Calc 7.86, Est GFR (MDRD) Af Amer 9 L, Est GFR (MDRD) Non-Af 7 L, BUN/Creatinine Ratio 9.4 L, Glucose 109 H, Calcium 8.4 L 10/31/20 12:30: Hep Bs Antigen Non-Reactive, Hep Bs Antibody Non-Reactive Current Medications Acetaminophen (Acetaminophen 325 Mg Tablet) 650 mg PO Q6H PRN PRN PRN Reason: Pain Score 1-10/Temp > 100.7 F Albuterol Sulfate (Albuterol 2.5 Mg/3 Ml Vial.Neb.) 2.5 mg INHALATION Q2H PRN PRN PRN Reason: SHORTNESS OF BREATH Albuterol/Ipratropium (Ipratropium/Albuterol Sulfate 3 Ml Ampul.Neb) 3 ml INHALATION Q4H.RT [facility] Last Admin: 10/31/20 07:11 Dose: 3 ml Documented by: Alprazolam (Alprazolam 0.5 Mg Tablet) 1 mg PO BID [facility] Last Admin: 10/31/20 02:25 Dose: 1 mg Documented by: Atorvastatin Calcium (Atorvastatin Calcium 80 Mg Tablet) 80 mg PO QHS [facility] Last Admin: 10/31/20 02:24 Dose: 80 mg Documented by: Carvedilol (Carvedilol 25 Mg Tablet) 25 mg PO BID [facility] Last Admin: 10/31/20 02:24 Dose: 25 mg Documented by: Cholecalciferol (Cholecalciferol (Vit D3) 1,000 Unit (25mcg)) 2,000 unit PO DAILY [facility] Hydralazine HCl (Hydralazine 20 Mg/Ml Vial) 5 mg IV Q6H PRN PRN PRN Reason: BLOOD PRESSURE Lidocaine (Lidocaine 5% 35gm Tube) 1 applic TOPICAL PRN PRN PRN Reason: AVF Methylprednisolone (Methylprednisolone 40 Mg/Ml Vial) 40 mg IV Q8 [facility] Last Admin: 10/31/20 06:27 Dose: 40 mg Documented by: Morphine Sulfate (Morphine 2 Mg/Ml Syringe) 1 mg IV Q3H PRN PRN PRN Reason: Pain Score 6-10 Ondansetron HCl (Ondansetron 4 Mg/2 Ml Vial) 4 mg IV Q8H PRN PRN PRN Reason: NAUSEA/VOMITING Oxycodone HCl (Oxycodone 5 Mg Tablet) 5 mg PO Q4H PRN PRN PRN Reason: Pain Score 4-5 Pantoprazole Sodium (Pantoprazole Sodium 40 Mg Tablet) 40 mg PO BID [facility] Last Admin: 10/31/20 02:25 Dose: 40 mg Documented by: Sucralfate (Sucralfate 1 Gm Tablet) 1 gm PO BID@0700,2200 [facility] Last Admin: 10/31/20 06:27 Dose: 1 gm Documented by: Assessment/Plan All Active Problems (Last Reviewed 10/29/20 @ 14:15 by Haven Arreguin) Acute on chronic respiratory failure with hypoxia and hypercapnia (Acute) Bilateral pleural effusion (Acute) COPD exacerbation (Acute) Pleural effusion (Acute) s/p fistulogram (Resolved ~09/28/18) history of surgically created arteriovenous fistula (Resolved) Stented coronary artery (Resolved) S/P CABG x 3 (Resolved 01/26/11) Status post peripheral artery angioplasty with insertion of stent (Resolved ~2010) Acute lower GI bleeding (Resolved) ESRD?had UF yesterday and dialysis today seen on dialysis tolerating well. Anemia?continue Epogen monitor hemoglobin transfuse as needed Respiratory failure/misc per primary
--- NOTE | 2020-10-31 15:16 | CASEMGMT ---
Readmission chart review: Pt was initially admitted 10/01-10/03/21 for CHF, pleural effusions and had a thoracentesis with 1150ml out. Pt also had an EGD with no active bleeding. Pt was discharged home at that time for to continue at home HD and on his 2L nc home oxygen. Pt was supposed to have his home HD on tuesday evening but was told to hold off d/t low BP and blood transfusion scheduled the next day. Pt then came from home infusion center to [facility] ED for increased SOB d/t lack of dialysis. Pt states no concerns with going home at time of discharge and declines need for any further resources at this time. Pt states no concerns for increased home oxygen need at this time and states 'I just turn it up or down if I need to.' CM to follow for any further discharge planning/needs. Green sheet left on chart for increased home oxygen need. SStdereje ANDRADE CM
--- NOTE | 2020-10-31 15:25 | PCM.DC ---
- Discharge Diagnoses Current Active Problems: Current Active and Chronic Problems (Last Reviewed 10/29/20 @ 14:15 by Haven Arreguin) Acute on chronic respiratory failure with hypoxia and hypercapnia (Acute) Hyponatremia (Chronic) Bilateral pleural effusion (Acute) COPD exacerbation (Acute) Anemia of unknown etiology (Chronic) Pleural effusion (Acute) ESRD (end stage renal disease) on dialysis (Chronic) Transudative pleural effusion (Chronic) Chronic atrial fibrillation (Chronic) Problem with dialysis access (Chronic) RAVEN (obstructive sleep apnea) (Chronic) AHI 42.6 History of non-ST elevation myocardial infarction (NSTEMI) (Chronic 01/21/11) Atherosclerotic heart disease of [place] coronary artery without angina pectoris (Chronic) 2003, JASON to circumflex ; 10/10/2009 tsfer from [facility] to [facility], total of 5 bare metal stents to RCA; CABG X 3 vessels @ [facility] 01/31/2011 (critical left main and restenosis of RCA stents) Diastolic CHF (Chronic) HLD (hyperlipidemia) (Chronic) HTN (hypertension) (Chronic) PAD (peripheral artery disease) (Chronic) COPD (chronic obstructive pulmonary disease) (Chronic) Tobacco dependence (Chronic) Anemia (Chronic) BPH (benign prostatic hyperplasia) (Chronic) You will use the following diet at home:: Renal (restricted protein/sodium) Discharge Activity: Return to Normal Activity Call your doctor if you observe: Shortness of breath, Dizziness, Fainting spells, Chest pain Allergies/Adverse Reactions: Allergies irbesartan [From Avapro] Allergy (Severe, Verified 10/30/20 15:35) Blisters zolpidem [From Ambien] Adverse Reaction (Severe, Verified 10/30/20 15:35) made me go crazy, memory loss amoxicillin Adverse Reaction (Intermediate, Verified 10/30/20 15:35) PASSES BLOOD IN STOOL TOLERATES ZOSYN PASSES BLOOD IN STOOL gabapentin Adverse Reaction (Unknown, Verified 10/30/20 15:35) emotional metronidazole [From Flagyl] Adverse Reaction (Verified 10/30/20 15:35) pt states he got palpitations and nose bleed. pt states he got palpitations and nose bleed. Medications to take at Discharge Budesonide Aerosol [Pulmicort Respules] 1 inh INHALATION BID 07/23/19 Ipratropium/Albuterol Sulfate [Iprat-Albut 0.5-3(2.5) mg/3 ml] 1 inh INHALATION Q4H PRN PRN 07/23/19 Rosuvastatin Calcium [Crestor] 40 mg PO QHS 07/23/19 hydrOXYzine pamoate capsule [Vistaril pamoate capsule] 25 mg PO 4X/DAY PRN PRN #30 cap 02/07/20 ALPRAZolam [Xanax] 1 mg PO BID 10/01/20 Cholecalciferol (Vitamin D3) [D3-2000] 2,000 unit PO DAILY 10/01/20 [place]-3 Fatty Acids/Fish Oil [Fish Oil 1,000 mg Capsule] 1 ea PO DAILY 10/01/20 Sucralfate 1 gm PO BID 10/01/20 carvedilol 25 mg tablet 25 mg PO BID 10/29/20 Pantoprazole Sodium [Protonix] 40 mg PO BID 10/30/20 MethylPREDNISolone DosePak [Medrol DosePak] 4 mg PO UD #1 box 10/31/20 The following prescriptions were given: MethylPREDNISolone DosePak [Medrol DosePak] 4 mg PO UD #1 box Transmission Status: Pending to [id number] Primary Care Physician: Tania Berger NP, EARLY CHILDHOOD TEACHER ASSISTANT-C [Primary Care Provider] - Please follow up with your Primary Care Physician in: 1 Week Test Results: Test results from this visit will be discussed in further detail at your follow-up appointment, if applicable. Please Follow Up With: Caleb Alaniz MD When: As scheduled Proposed Discharge Date: 10/31/20
--- NOTE | 2020-10-31 15:30 | PCM.DC.SUM ---
Discharge Date and Diagnosis - Problem List Patient Problems: Active and Suspected Problems (Last Reviewed 10/29/20 @ 14:15 by Haven Arreguin) Acute on chronic respiratory failure with hypoxia and hypercapnia (Acute) Bilateral pleural effusion (Acute) COPD exacerbation (Acute) Pleural effusion (Acute) Date of Admission: 10/30/20 Date of Discharge: 10/31/20 - Primary Discharge Diagnosis Acute Problems: Active Problems (Last Reviewed 10/29/20 @ 14:15 by Haven Arreguin) 1. Acute on chronic hypoxic respiratory failure secondary to exacerbation of severe COPD, complicated by chronic heart failure and end-stage renal disease with associated chronic bilateral pleural effusions 2. Bilateral pleural effusions, secondary to chronic CHF and end-stage renal disease as noted above-missed dialysis. 3. Chronic heart failure with preserved ejection fraction 4. End-stage renal disease 5. Chronic iron deficiency anemia/anemia of chronic disease 6. CAD status post CABG X3 7. BPH 8. Hypertension 9. History of colonic ischemia/history of GI bleed 10. Anxiety 11. PAD/PVD 12. Hyperlipidemia 13. RAVEN 14. Chronic atrial fibrillation - Secondary Discharge Diagnosis Chronic Problems: Chronic Problems (Last Reviewed 10/29/20 @ 14:15 by Haven Arreguin) Hyponatremia (Chronic) Anemia of unknown etiology (Chronic) ESRD (end stage renal disease) on dialysis (Chronic) Transudative pleural effusion (Chronic) Chronic atrial fibrillation (Chronic) Problem with dialysis access (Chronic) RAVEN (obstructive sleep apnea) (Chronic) AHI 42.6 History of non-ST elevation myocardial infarction (NSTEMI) (Chronic 01/21/11) Atherosclerotic heart disease of [place] coronary artery without angina pectoris (Chronic) 2003, JASON to circumflex ; 10/10/2009 tsfer from [facility] to [facility], total of 5 bare metal stents to RCA; CABG X 3 vessels @ [facility] 01/31/2011 (critical left main and restenosis of RCA stents) Diastolic CHF (Chronic) HLD (hyperlipidemia) (Chronic) HTN (hypertension) (Chronic) PAD (peripheral artery disease) (Chronic) COPD (chronic obstructive pulmonary disease) (Chronic) Tobacco dependence (Chronic) Anemia (Chronic) BPH (benign prostatic hyperplasia) (Chronic) Hospital Course and Treatment Imaging Results: Diagnostic Data Chest X-Ray 10/30/20 16:15 IMPRESSION: Stable interstitial changes in both lung noel with stable bilateral pleural effusions. No interval change Electronically Signed: Pradeep Marquez MD at 16:33 EST , Service support , Dr. Bardales- Nephrology Operations: None Procedures: Dialysis Summary of Care Provided: The patient is a 69 year old M admitted 10/30/2020 due to shortness of breath. 1. Acute on chronic hypoxic respiratory failure secondary to exacerbation of severe COPD, complicated by chronic heart failure and end-stage renal disease with associated chronic bilateral pleural effusions-IV Solu-Medrol. Patient is on 3 L nasal cannula continuously at baseline. Following with Dr. Caicedo, pulmonary medicine. Continue supplement oxygen to maintain O2 at or above 90%. Covid negative. Symptoms improved with dialysis x2 treatments and steroids. Medrol Dosepak at discharge. On baseline home O2 requirements. Follow-up with PCP in 1 week. Follow-up for routine dialysis. Patient did miss dialysis prior to admission. 2. Bilateral pleural effusions, secondary to chronic CHF and end-stage renal disease as noted above-appear stable per x-ray. Recent visit with pulmonary medicine pleurodesis versus Pleurx catheter was discussed. Continue outpatient follow-up. 3. Chronic heart failure with preserved ejection fraction- Echocardiogram in October 2019 demonstrated an EF of 55%. 4. End-stage renal disease-consult nephrology for dialysis. Missed dialysis 10/29/2020. Dialysis x2 during admission. 5. Chronic iron deficiency anemia/anemia of chronic disease-requiring blood transfusion as outpatient 10/30/2020 due to reported hemoglobin of 6.2. Hemoglobin currently stable, 8.3. Patient had recent EGD 10/02/2020 and was evaluated by general surgery. EGD showed grade a reflux esophagitis. Continue Carafate, PPI. 6. CAD status post CABG X3-continue statin, metoprolol. 7. BPH-continue Flomax regimen. 8. Hypertension-stable, continue metoprolol regimen. 9. History of colonic ischemia/history of GI bleed-November 2017 patient had a ischemic right colon and proximal transverse colon and underwent ileostomy. Continue PPI, Carafate as noted above. 10. Anxiety-on scheduled dose Xanax. 11. PAD/PVD-continue statin. Previously on aspirin which was discontinued. 12. Hyperlipidemia-continue statin regimen. 13. RAVEN-continue BiPAP nightly and PRN. 14. Chronic atrial fibrillation-anticoagulation contraindicated. Continue beta-lesa. General: Alert, Oriented x3, Cooperative, no apparent distress HEENT: Atraumatic, PERRLA, EOMI, Normocephalic Oral: Dry Mucosa Neck: Supple, No JVD, Negative Carotid Bruits Lungs: Diminished, Wheezes Cardiovascular: Regular rate, No murmurs Abdomen: Bowel Sounds Present, Soft, Non Tender, Non-Distended Extremities: No clubbing, No cyanosis, Capillary Refill Less than 3 Seconds, Edema - Bilateral lower extremities, left greater than right Skin: No rashes, No breakdown Musculoskeletal: No Tenderness to Palpation of Joints or Extremities Neurological: Cranial nerves II-XII grossly intact, Neuro grossly intact Psych/Mental Status: Appropriate Patient seen and examined prior to discharge. Physical assessment as noted above. Patient is stable for discharge with follow up recommendations as noted above. This patient was seen by SEUN Obregon under the supervision of Dr. Workman. Patient Problems: Active and Suspected Problems (Last Reviewed 10/29/20 @ 14:15 by Haven Arreguin) Acute on chronic respiratory failure with hypoxia and hypercapnia (Acute) Bilateral pleural effusion (Acute) COPD exacerbation (Acute) Pleural effusion (Acute) - Physical Exam Vitals/I&O's: Vital Signs Temp Pulse Resp BP Pulse Ox 98.2 F 102 H 18 133/57 H 95 10/31/20 14:50 10/31/20 14:50 10/31/20 14:50 10/31/20 14:50 10/31/20 14:50 Oxygen Flow Rate (L/min) 3 Oxygen Delivery Method Nasal Cannula Weight: 157 lb 6.561 oz Body Mass Index (BMI) 25.4 Finger Stick Blood Glucose 200 Intake and Output for Last 24 Hours 10/29/20 10/30/20 10/31/20 23:59 23:59 23:59 Intake Total 310 / 310 Output Total 4100 / 4100 Balance -3790 / -3790 Microbiology Past 72 Hours 10/30/20 20:25 Mucosa - Nasopharyngeal Respiratory Panel (PCR) - Final 10/30/20 16:09 Mucosa - Nose SARS-CoV-2 Antigen (Rapid) - Final Laboratory Results 10/30/20 16:09: WBC 5.2, RBC 2.74 L, Hgb 8.9 L, Hct 26.5 L, MCV 96.7 H, MCH 32.5 H, MCHC 33.6, RDW Std Deviation 61.6 H, RDW Coeff of Eleni 17.6 H, Plt Count 120 L, MPV 10.3, Immature Gran % (Auto) 0.800, Neut % (Auto) 74.8 H, Lymph % (Auto) 14.8 L, Reeves % (Auto) 7.9, Eos % (Auto) 1.3, Baso % (Auto) 0.4, Absolute Neuts (auto) 3.9, Absolute Lymphs (auto) 0.77 L, Nucleated RBC % 0 10/30/20 16:09: PT 14.0, INR 1.1, APTT 29.9 10/30/20 16:09: Sodium 129 L, Potassium 4.7, Chloride 95 L, Carbon Dioxide 27.0, Anion Gap 7, BUN 69 H, Creatinine 7.51 H*, Estim Creat Clear Calc 8.50, Est GFR (MDRD) Af Amer 9 L, Est GFR (MDRD) Non-Af 8 L, BUN/Creatinine Ratio 9.2 L, Glucose 101, Calcium 8.3 L, Total Bilirubin 2.30 H, AST 14 L, ALT 17, Alkaline Phosphatase 130 H, Total Protein 6.8, Albumin 2.9 L, Globulin 3.9, Albumin/Globulin Ratio 0.7 L 10/31/20 05:40: WBC 4.5, RBC 2.59 L, Hgb 8.3 L, Hct 25.0 L, MCV 96.5 H, MCH 32.0, MCHC 33.2, RDW Std Deviation 62.7 H, RDW Coeff of Eleni 17.5 H, Plt Count 111 L, MPV 10.2, Immature Gran % (Auto) 0.400, Neut % (Auto) 89.9 H, Lymph % (Auto) 8.6 L, Reeves % (Auto) 0.9, Eos % (Auto) 0.0, Baso % (Auto) 0.2, Absolute Neuts (auto) 4.1, Absolute Lymphs (auto) 0.39 L, Nucleated RBC % 0, Differential Comment SCANNED 10/31/20 05:40: Sodium 128 L, Potassium 5.0, Chloride 94 L, Carbon Dioxide 23.0, Anion Gap 11, BUN 76 H, Creatinine 8.12 H*, Estim Creat Clear Calc 7.86, Est GFR (MDRD) Af Amer 9 L, Est GFR (MDRD) Non-Af 7 L, BUN/Creatinine Ratio 9.4 L, Glucose 109 H, Calcium 8.4 L 10/31/20 12:30: Hep Bs Antigen Non-Reactive, Hep Bs Antibody Non-Reactive Current Medications Acetaminophen (Acetaminophen 325 Mg Tablet) 650 mg PO Q6H PRN PRN PRN Reason: Pain Score 1-10/Temp > 100.7 F Albuterol Sulfate (Albuterol 2.5 Mg/3 Ml Vial.Neb.) 2.5 mg INHALATION Q2H PRN PRN PRN Reason: SHORTNESS OF BREATH Albuterol/Ipratropium (Ipratropium/Albuterol Sulfate 3 Ml Ampul.Neb) 3 ml INHALATION Q4H.RT [facility] Last Admin: 10/31/20 07:11 Dose: 3 ml Documented by: Alprazolam (Alprazolam 0.5 Mg Tablet) 1 mg PO BID [facility] Last Admin: 10/31/20 14:58 Dose: Not Given Documented by: Atorvastatin Calcium (Atorvastatin Calcium 80 Mg Tablet) 80 mg PO QHS [facility] Last Admin: 10/31/20 02:24 Dose: 80 mg Documented by: Carvedilol (Carvedilol 25 Mg Tablet) 25 mg PO BID [facility] Last Admin: 10/31/20 14:55 Dose: 25 mg Documented by: Cholecalciferol (Cholecalciferol (Vit D3) 1,000 Unit (25mcg)) 2,000 unit PO DAILY [facility] Last Admin: 10/31/20 14:55 Dose: 2,000 unit Documented by: Hydralazine HCl (Hydralazine 20 Mg/Ml Vial) 5 mg IV Q6H PRN PRN PRN Reason: BLOOD PRESSURE Lidocaine (Lidocaine 5% 35gm Tube) 1 applic TOPICAL PRN PRN PRN Reason: AVF Methylprednisolone (Methylprednisolone 40 Mg/Ml Vial) 40 mg IV Q8 [facility] Last Admin: 10/31/20 14:55 Dose: 40 mg Documented by: Morphine Sulfate (Morphine 2 Mg/Ml Syringe) 1 mg IV Q3H PRN PRN PRN Reason: Pain Score 6-10 Ondansetron HCl (Ondansetron 4 Mg/2 Ml Vial) 4 mg IV Q8H PRN PRN PRN Reason: NAUSEA/VOMITING Oxycodone HCl (Oxycodone 5 Mg Tablet) 5 mg PO Q4H PRN PRN PRN Reason: Pain Score 4-5 Pantoprazole Sodium (Pantoprazole Sodium 40 Mg Tablet) 40 mg PO BID [facility] Last Admin: 10/31/20 14:55 Dose: 40 mg Documented by: Sucralfate (Sucralfate 1 Gm Tablet) 1 gm PO BID@0700,2200 [facility] Last Admin: 10/31/20 06:27 Dose: 1 gm Documented by: Discharge Diet: Renal Diet Discharge Activity: Return to Normal Activity Call your doctor if you observe: Shortness of breath, Dizziness, Fainting spells, Chest pain Home Medications: Medications to take at Discharge Budesonide Aerosol [Pulmicort Respules] 1 inh INHALATION BID 07/23/19 Ipratropium/Albuterol Sulfate [Iprat-Albut 0.5-3(2.5) mg/3 ml] 1 inh INHALATION Q4H PRN PRN 07/23/19 Rosuvastatin Calcium [Crestor] 40 mg PO QHS 07/23/19 hydrOXYzine pamoate capsule [Vistaril pamoate capsule] 25 mg PO 4X/DAY PRN PRN #30 cap 02/07/20 ALPRAZolam [Xanax] 1 mg PO BID 10/01/20 Cholecalciferol (Vitamin D3) [D3-2000] 2,000 unit PO DAILY 10/01/20 [place]-3 Fatty Acids/Fish Oil [Fish Oil 1,000 mg Capsule] 1 ea PO DAILY 10/01/20 Sucralfate 1 gm PO BID 10/01/20 carvedilol 25 mg tablet 25 mg PO BID 10/29/20 Pantoprazole Sodium [Protonix] 40 mg PO BID 10/30/20 MethylPREDNISolone DosePak [Medrol DosePak] 4 mg PO UD #1 box 10/31/20 Following Prescriptions Were Given to Patient: MethylPREDNISolone DosePak [Medrol DosePak] 4 mg PO UD #1 box Transmission Status: Pending to [id number] Primary Care Physician: Tania Berger NP, [employer] TRAINER-C [Primary Care Provider] - Please follow up with your Primary Care Physician in: 1 Week Please Follow Up With: Caleb Alaniz MD When: As scheduled Disposition: Home Minutes spent on discharge:: 35 Patient Condition:: Stable Medical Necessity - Tobacco Use Smoking Status: Light Smoker (<10/day) Tobacco Use: Cigarettes Meaningful Use Info Meaningful Use Diagnoses (Choose all that apply): None applicable
--- NOTE | 2020-11-04 13:22 | CASEMGMT ---
RAYMOND SPENCER Discharge F/U Phone Call LACLuli: Raciel Strata: 3 Discharge date: 10/31/20 Call date: 11/04/20 Call time: 1322 Admission dx: COPD exac Pt states has been doing 'so-so' since discharge. Pt states no questions regarding discharge instructions but does have a medication question at this time. Pt states that prednisone has caused him to bleed in the past and so he has not taken the medrol dosepack as he is concerned but then pt states he can take solu-medrol IV without any concern. This RAYMOND SPENCER spoke with Maritza, pharmacist and she states that if pt can take solu-medrol iv without concerns then the medrol dosepack should be fine but to take it with a meal or glass of milk and pt updated on all at this time, voices understanding. Pt states spoke with PCP today but did not ask her about this and states does not have appt set up currently. Pt states no suggestions for [facility] at this time and thanks this RAYMOND SPENCER for call at this time. Pt voices no further questions/concerns/needs at this time. S[place]en RAYMOND SPENCER
== END 2020-10-31 17:23 | disposition home or self-care (01) | DRG 190 ==
LOC: ED 16:06 → PCU 18:12
PROVIDERS: Internal Medicine; Nurse Practitioner Family; Admitting Provider Family Medicine; Emergency Provider Emergency Medicine; PCP Nurse Practitioner Family; Visit Provider Internal Medicine
DX: J44.1 Chronic obstructive pulmonary disease with (acute) exacerbation (principal); I50.33 Acute on chronic diastolic (congestive) heart failure; J96.21 Acute and chronic respiratory failure with hypoxia; J96.22 Acute and chronic respiratory failure with hypercapnia; N18.6 End stage renal disease; I13.2 Hypertensive heart and chronic kidney disease with heart failure and with stage 5 chronic kidney disease, or end stage renal disease; I48.20 Chronic atrial fibrillation, unspecified; E87.1 Hypo-osmolality and hyponatremia; J90 Pleural effusion, not elsewhere classified; N40.0 Benign prostatic hyperplasia without lower urinary tract symptoms; Z95.1 Presence of aortocoronary bypass graft; E78.5 Hyperlipidemia, unspecified; D50.9 Iron deficiency anemia, unspecified; D63.8 Anemia in other chronic diseases classified elsewhere; K21.00 Gastro-esophageal reflux disease with esophagitis, without bleeding; I73.9 Peripheral vascular disease, unspecified; F32.9 Major depressive disorder, single episode, unspecified; F41.9 Anxiety disorder, unspecified; G47.33 Obstructive sleep apnea (adult) (pediatric); I25.10 Atherosclerotic heart disease of native coronary artery without angina pectoris; I25.2 Old myocardial infarction; Z79.01 Long term (current) use of anticoagulants; Z99.2 Dependence on renal dialysis; Z99.81 Dependence on supplemental oxygen; Z87.19 Personal history of other diseases of the digestive system; Z79.899 Other long term (current) drug therapy; F17.210 Nicotine dependence, cigarettes, uncomplicated
CPT/HCPCS: 36415; 36430; 71045; 80048; 80053; 85025; 85610; 85730; 86706; 86850; 86900; 86901; 86920; 86922; 87340; 87426; 87633; 90937; 92610; 93005; 93971; 94002; 94003; 94640; 99285; 99406; J7030; P9016; A4216; G0257

== ENCOUNTER → 2020-11-19 08:11 | Outpatient (CLI) | payer MEDICARE, SELFPAY ==
[2020-10-30 18:08] VITALS: BMI 25.4
[2020-11-19] VITALS (8 sets, daily range): BP systolic 111–163; BP diastolic 37–60; PULSE 64–86; RESP 16–20; TEMP 35.9–36.3; O2SAT 95–100; BMI 24.1
[2020-11-19] MEDS: 0.9% NaCl Peripheral Flush Adult/Peds IV (08:34)
== END ==
LOC: MEDOUTP 08:11
PROVIDERS: PCP Internal Medicine Nephrology; Referring Provider Internal Medicine Nephrology; Visit Provider Internal Medicine Nephrology
DX: N18.6 End stage renal disease (principal); D64.9 Anemia, unspecified
CPT/HCPCS: 36415; 36430; 86850; 86900; 86901; 86920; 86922; J7040; P9016; A4216

== ENCOUNTER 2020-12-11 07:54 | Outpatient (CLI) | payer MEDICARE, SELFPAY ==
[2020-11-19 08:29] VITALS: BMI 24.1
[2020-12-10 15:46] LABS: International Normalized Ratio 1.2; Prothrombin Time (Protime)PT. 14.5 SECONDS (11.7-14.9)
[2020-12-10 15:47] LABS: Partial Thromboplast Time 39.4 Seconds (24.1-36.2)
[2020-12-11] VITALS (10 sets, daily range): BP systolic 110–153; BP diastolic 38–74; PULSE 59–79; RESP 16–24; TEMP 35.6–36.6; O2SAT 98–100; BMI 24.1
--- NOTE | 2020-12-11 11:10 | NURSING ---
flushing with nacl
--- NOTE | 2020-12-11 14:09 | US_ITS ---
PROCEDURE: ULTRASOUND GUIDED THORACENTESIS. DATE: 12/11/2020.. INDICATION: Male, 70 years old. Left pleural effusion. PHYSICIAN: Deven Hensley M.D. PROCEDURE: The risks, benefits, and alternatives to the procedure were explained to the patient. The specific risks of bleeding, infection, and pneumothorax requiring chest tube insertion were discussed and accepted. Written informed consent was obtained. Ultrasonographic evaluation of the left lower pleural space was carried out. An adequate pocket was identified. The patient was placed in the sitting, upright position. The overlying skin was prepped and draped in sterile fashion. 1% lidocaine was administered subcutaneously for local anesthesia. Under ultrasound guidance, a 5 [place] thoracentesis needle/catheter system was advanced into the left posterior lower pleural fluid collection. Approximately 1250 mL of douglas-colored fluid was drained. The catheter was removed, and a sterile dressing was applied. The patient tolerated the procedure well. A chest x-ray was ordered. US/Thoracentesis W US IMPRESSION: Ultrasound-guided left thoracentesis. Electronically Signed: Deven Hensley MD at 15:27 EST , Service support ,
--- NOTE | 2020-12-11 15:05 | RAD_ITS ---
STUDY: X-RAY CHEST REASON FOR EXAM: Male, 70 years old. Pneumothorax TECHNIQUE: AP inspiration and expiration views. COMPARISON: Comparison is made with prior study dated 03/30/2021. FINDINGS: The patient is status post left thoracentesis. There is no evidence of pneumothorax. Mild residual small pleural effusions with bibasilar atelectasis and/or infiltrates. RAD/Chest Insp/Exp 2 View IMPRESSION: Status post left thoracentesis. There is no evidence of pneumothorax. Electronically Signed: Deven Hensley MD at 8:46 EST , Service support ,
== END 2020-12-11 16:00 | disposition home or self-care (01) ==
PROVIDERS: Referring Provider Nurse Practitioner Acute Care; Visit Provider Nurse Practitioner Acute Care
DX: J90 Pleural effusion, not elsewhere classified (principal); N18.6 End stage renal disease; D64.9 Anemia, unspecified
CPT/HCPCS: 32555; 36415; 36430; 71046; 85610; 85730; 86850; 86900; 86901; 86920; 86922; J7040; P9016; A4216

== ENCOUNTER → 2020-12-30 07:42 | Outpatient (CLI) | payer MEDICARE, SELFPAY ==
[2020-12-30] VITALS (7 sets, daily range): BP systolic 103–132; BP diastolic 32–44; PULSE 69–73; RESP 16–18; TEMP 36.1–36.4; O2SAT 97–100; BMI 24.1
[2020-12-30] MEDS: 0.9% NaCl Peripheral Flush Adult/Peds IV (08:26)
== END ==
PROVIDERS: PCP Nurse Practitioner Family; Referring Provider Internal Medicine Nephrology; Visit Provider Internal Medicine Nephrology
DX: N18.6 End stage renal disease (principal); D64.9 Anemia, unspecified
CPT/HCPCS: 36415; 36430; 86850; 86900; 86901; 86920; 86922; J7040; P9016; A4216

== ENCOUNTER → 2021-01-19 13:42 | Outpatient (CLI) | payer MEDICARE, SELFPAY ==
[2020-12-30 08:18] VITALS: BMI 24.1
--- NOTE | 2021-01-19 14:12 | US_ITS ---
INDICATION: left recurrent pleural effusion EXAMINATION: IR Thoracentesis needle or catheter, aspiration with imaging PROCEDURE: Informed consent was obtained from the patient for ultrasound-guided thoracentesis. The site for skin puncture was determined under ultrasound. The skin of the left back was prepped and draped in usual sterile fashion. The skin and subcutaneous tissues were then anesthetized with 1% LIDOCAINE. Thoracentesis catheter was advanced into the left pleural space and 1150 cc of straw-colored fluid removed. Postprocedural chest x-ray demonstrates no pneumothorax. US/Thoracentesis W US IMPRESSION: Successful ultrasound-guided left thoracentesis.. Electronically Signed: Onur Goldstein MD at 15:39 EDT Tel , Service support ,
[2021-01-19 14:21] LABS: International Normalized Ratio 1.2; Prothrombin Time (Protime)PT. 14.5 SECONDS (11.7-14.9)
[2021-01-19 14:22] LABS: Partial Thromboplast Time 36.5 Seconds (24.1-36.2)
--- NOTE | 2021-01-19 15:09 | RAD_ITS ---
STUDY: X-RAY CHEST REASON FOR EXAM: Male, 70 years old. pneumothorax -- immediately post thoracentesis TECHNIQUE: Single frontal view of the chest. COMPARISON: 12/11/2020 chest x-ray FINDINGS: Sternotomy wires. Left subclavian endovascular stent. Atherosclerotic plaque left axilla. Bibasilar interstitial infiltrates. Bilateral pleural effusions. No pneumothorax. Normal size heart. Normal mediastinum and justyn. Normal visualized pulmonary arteries. Normal visualized aortic arch and descending thoracic aorta. Normal visualized thoracic spine. Normal visualized ribs, clavicles, and shoulders. There is no demonstrated abnormality of the visualized soft tissue structures of the upper abdomen. RAD/Chest Insp/Exp 2 View IMPRESSION: No change in bibasilar airspace disease and effusions Electronically Signed: Rogelio Harrell MD at 17:23 EDT , Service support ,
[2021-01-19 15:15] VITALS: BP 130/45; BP 130/46; BP 141/49; BP 145/47; PULSE 63; PULSE 69; PULSE 70; PULSE 73; RESP 28; RESP 30; TEMP 36.6; O2SAT 100; O2SAT 99
[2021-01-19 22:10] LABS: Xtra Tube EP Lab EXTRA TUBE
== END ==
PROVIDERS: PCP Nurse Practitioner Family; Referring Provider Nurse Practitioner Acute Care; Visit Provider Nurse Practitioner Acute Care
DX: J90 Pleural effusion, not elsewhere classified (principal)
CPT/HCPCS: 32555; 36415; 71046; 85610; 85730

== ENCOUNTER → 2021-02-17 08:28 | Outpatient (CLI) | payer MEDICARE, SELFPAY ==
[2020-12-30 08:18] VITALS: BMI 24.1
[2021-02-17] VITALS (7 sets, daily range): BP systolic 115–136; BP diastolic 38–49; PULSE 66–75; RESP 16–20; TEMP 36.3–36.7; O2SAT 95–100; BMI 23.8
[2021-02-17] MEDS: 0.9% NaCl Peripheral Flush Adult/Peds IV (11:44)
== END ==
PROVIDERS: PCP Nurse Practitioner Family; Referring Provider Internal Medicine Nephrology; Visit Provider Internal Medicine Nephrology
DX: D64.9 Anemia, unspecified (principal)
CPT/HCPCS: 36430; 86850; 86900; 86901; 86920; 86922; J7040; P9016; A4216

== ENCOUNTER 2021-03-14 14:33 | Emergency (ER) | payer MEDICARE, SELFPAY ==
[2021-02-17 08:37] VITALS: BMI 23.8
[2021-03-14] VITALS (7 sets, daily range): BP systolic 118–148; BP diastolic 44–62; PULSE 67–79; RESP 17–25; TEMP 36.4–36.6; O2SAT 94–100; BMI 23.7
--- NOTE | 2021-03-14 15:04 | EKG12_ITS ---
Test Reason : GI BLEED Blood Pressure : / mmHG Vent. Rate : 067 BPM Atrial Rate : 067 BPM P-R Int : 254 ms QRS Dur : 094 ms QT Int : 248 ms P-R-T Axes : 097 032 187 degrees QTc Int : 262 ms Atrial fibrillation Left ventricular hypertrophy with repolarization abnormality Abnormal ECG Confirmed by VIKY MONTENEGRO, JOS ([id number]), film editor supervisor PATSY LINN ([id number]) on 03/17/2021 1:50:07 PM Referred By: SATISH Confirmed By:JOS SALMON MD
--- NOTE | 2021-03-14 15:04 | RAD_ITS ---
STUDY: X-RAY CHEST REASON FOR EXAM: Male, 70 years old. recurrent pleural effusion TECHNIQUE: AP COMPARISON: 01/19/2021 FINDINGS: Central pulmonary vascular congestion with bibasilar pulmonary infiltrates stable. Similar volume bilateral pleural effusions with chest tubes/Pleurx catheters. Normal size heart. Sternal wires and mediastinal surgical clips compatible with prior CABG. Normal visualized pulmonary arteries. There is atherosclerotic calcification of the aortic arch with tortuosity. Vascular stent projects over the medial left clavicle, likely subclavian artery or vein. No acute bony process. There is no demonstrated abnormality of the visualized soft tissue structures of the upper abdomen. RAD/Chest 1 View (Portable) IMPRESSION: Bilateral Pleurx catheters with similar volume pleural effusions. Bilateral lower lobe infiltrates with vascular congestion; query CHF (stable). Electronically Signed: Nabil Prater MD ([place]oks) at 15:58 EDT , Service support ,
--- NOTE | 2021-03-14 15:05 | CT_ITS ---
STUDY: CT ABDOMEN AND PELVIS WITHOUT CONTRAST REASON FOR EXAM: Male, 70 years old. Shortness of breath, decreasing hemoglobin, fatigue, blood in ostomy RADIATION DOSAGE (If Supplied By Facility): CTDIvol = ( 6.54 ) mGy, DLP = ( 404.47 ) mGycm TECHNIQUE: Transaxial images were obtained from the dome of the diaphragm to the symphysis pubis without oral contrast, and without intravenous contrast. Sagittal and coronal images were reconstructed. Individualized dose optimization techniques were used for this CT. COMPARISON: 02/06/2020 FINDINGS: Pleural effusions and Pleurx catheters with lower lobe interstitial edema and groundglass opacities as seen on chest x-ray from earlier today. 7 mm noncalcified nodule in the posterior right lower lobe on image 14. 15 x 14 mm noncalcified nodule in the lingula on image 1 is incompletely visualized. The visualized portions of the heart are within normal limits. Normal liver. Contracted gallbladder with punctate gallstones. Normal spleen. Normal pancreas. Normal bilateral adrenal glands. Bilateral renal cysts including hyperdense (proteinaceous) left renal cysts stable. Normal visualized stomach. Small duodenal lipoma, stable (doubtful significance). Right anterior abdominal wall ileostomy. Mildly prominent hyperdense bowel and adjacent fluid (image 99 series 2). Left upper quadrant colostomy. The appendix is visualized and appears normal. Extensive atherosclerosis. Normal inferior vena cava. Normal retroperitoneum. Normal urinary bladder. There is enlargement of the prostate gland. Right inguinal hernia containing small bowel. Mild amount of hernia sac fluid. Sclerotic lesion of the left ilium is stable, probable granuloma. There are degenerative changes of the lumbar spine. CT/Abdomen/Pelvis without Cont IMPRESSION: 1. Right lower quadrant ostomy with mildly prominent hyperdense bowel and adjacent fluid. This could represent blood-filled bowel lumen/bowel inflammation/ischemia. 2. Right inguinal hernia containing small bowel with hernia sac fluid but no evidence of bowel obstruction. 3. Right lower quadrant ostomy, left upper quadrant colostomy. Subtotal colectomy. 4. Bilateral pleural effusions with Pleurx catheters. Suspect CHF lower lobe edema. 5. 1.5 x 1.4 cm lingular nodule (incompletely visualized), new since chest CT of 12/18/2018. MAY represent localized atelectasis or infiltrate, however, neoplasm is also possible. Dedicated chest CT to evaluate for additional nodules suggested and will determine additional follow-up/workup. 6. 7 mm noncalcified nodule in the posterior right lower lobe. Unknown interval change as nodule is in segment of previous atelectasis. 7. Additional stable chronic changes, as above. Electronically Signed: Nabil Prater MD ([place]) at 16:14 EDT , Service support ,
--- NOTE | 2021-03-14 15:07 | EX.ED.DYSGE1 ---
HPI History of Present Illness Chief Complaint: GI Bleed Narrative Narrative: 70-year-old male presenting with anemia. He states he had outpatient labs drawn the other day it showed his hemoglobin is 6.6. Patient has history of GI bleed in the past and states he had several places in his stomach and has bowel cauterized. He also had a blood clot causing ischemic bowel and had to have some bowel removed. He has a colostomy bag. He and his noted that he had some blood in it last night and again today. They state they think it is blood because they tested with peroxide and foams. He states he is had multiple issues with anemia and is even done endoscopy several times as well as capsule endoscopy and they have not been able to find a source of bleeding. He admits to generalized fatigue. He states he is not lightheaded or dizzy. He has some mild mid abdominal pain. Patient states that he is extremely itchy all over as well. He states Benadryl has not helped. Patient also does dialysis at home. His does this for him. He has a fistula in the left upper extremity. Patient states that he also has recurrent pleural effusion on the left which keeps getting drained. He states he does not know why he has recurrent effusion. [facility] Medical History Anemia Atherosclerotic heart disease of [place] coronary artery without angina pectoris BPH (benign prostatic hyperplasia) COPD (chronic obstructive pulmonary disease) Diastolic CHF History of non-ST elevation myocardial infarction (NSTEMI) (01/21/11) HLD (hyperlipidemia) HTN (hypertension) PAD (peripheral artery disease) Tobacco dependence Home Medications budesonide 1 inh INHALATION BID 07/23/19 [History Last Taken 10/01/20] ipratropium-albuterol 1 inh INHALATION Q4H PRN PRN 07/23/19 [History Last Taken 10/30/20 08:00] rosuvastatin 40 mg PO QHS 07/23/19 [History Last Taken 10/29/20 21:00] cholecalciferol (vitamin D3) 2,000 unit PO DAILY 10/01/20 [History Last Taken 10/30/20 09:00] omega-3 fatty acids-fish oil 1 ea PO DAILY 10/01/20 [History Last Taken 10/30/20 09:00] sucralfate 1 gm PO BID 10/01/20 [History Last Taken 10/30/20 09:00] carvedilol 25 mg tablet 12.5 mg PO BID 10/29/20 [History Last Taken 10/30/20 09:00] pantoprazole 40 mg PO BID 10/30/20 [History Last Taken 10/30/20 09:00] azithromycin [Zithromax] 250 mg PO MOWEFR 03/14/21 [History Last Taken Unknown] [id number] [Trelegy Ellipta] 1 inh INHALATION DAILY 03/14/21 [History Last Taken Unknown] Allergy/AdvReac Type Severity Reaction Status Date / Time irbesartan [From Avapro] Allergy Severe Blisters Verified 03/14/21 14:35 pregabalin [From Lyrica] Allergy Other Verified 03/14/21 14:35 zolpidem [From Ambien] AdvReac Severe made me Verified 03/14/21 14:35 go crazy, memory loss amoxicillin AdvReac Intermediate PASSES Verified 03/14/21 14:35 BLOOD IN STOOL gabapentin AdvReac Unknown emotional Verified 03/14/21 14:35 metronidazole [From Flagyl] AdvReac pt states Verified 03/14/21 14:35 he got palpitations and nose bleed. Family History Father CAD (coronary artery disease) Hypertension Kidney disease CVA (cerebral vascular accident) Other Cancer Surgical History history of surgically created arteriovenous fistula S/P CABG x 3 (01/26/11) s/p fistulogram (~09/28/18) Status post peripheral artery angioplasty with insertion of stent (~2010) Stented coronary artery Social History (Updated 12/22/20 @ 13:49 by Tiara FELIPE PALaloC) Smoking Status: Former smoker ROS ROS ED Constitutional Constitutional ED: Reports other Details: Generalized fatigue ; Denies chills, fever(s) or sweats Eyes Eyes: Denies blurry vision or change in vision ENT ENT ED: Denies ear pain, rhinorrhea or sore throat Cardiovascular Cardiovascular: Denies chest pain, palpitations or racing heartbeat Respiratory/Chest Respiratory/Chest: Denies cough, dyspnea or sputum Gastrointestinal Gastrointestinal: Reports abdominal pain; Denies constipation, diarrhea or vomiting Genitourinary Genitourinary ED: Denies dysuria, hematuria or urinary frequency Musculoskeletal Musculoskeletal: Denies arthralgias, myalgias or neck pain Integumentary Denies abscess, Abrasions or rash Neurologic Neurologic: Denies headache(s), paresthesias or weakness Psychiatric Psychiatric: Denies anxiety, depression, suicidal ideation or suicidal thoughts Endocrine Endocrinology: Denies polydipsia or polyuria EXAM Physical Exam Const Vital Signs: 03/14/21 14:35 03/14/21 15:18 03/14/21 15:20 Temperature 97.8 F Temperature Source Temporal Pulse Rate 68 67 Respiratory Rate 22 H 25 H Respiratory Effort Short of Breath Respiratory Depth Shallow Respiratory Pattern Tachypnea Blood Pressure 122/44 H 118/50 L Blood Pressure Mean 70 72 Blood Pressure Source Blood Pressure Position Blood Pressure Location Pulse Ox 99 100 Oxygen Delivery Method Nasal Cannula Nasal Cannula Nasal Cannula Oxygen Flow Rate (L/min) 3 3 3 03/14/21 17:48 03/14/21 18:47 03/14/21 19:00 Temperature 97.6 F L 97.9 F Temperature Source Temporal Temporal Pulse Rate 76 79 71 Respiratory Rate 24 H 18 17 Respiratory Effort Respiratory Depth Respiratory Pattern Blood Pressure 136/57 H 136/59 H 147/62 H Blood Pressure Mean 83 84 90 Blood Pressure Source Monitor Monitor Blood Pressure Position Semi-Fowlers Semi-Fowlers Blood Pressure Location Right Arm Right Arm Pulse Ox 100 94 100 Oxygen Delivery Method Room Air Nasal Cannula Nasal Cannula Oxygen Flow Rate (L/min) 2 2 03/14/21 19:26 Temperature Temperature Source Pulse Rate 70 Respiratory Rate 19 H Respiratory Effort Respiratory Depth Respiratory Pattern Blood Pressure 148/54 H Blood Pressure Mean 85 Blood Pressure Source Blood Pressure Position Blood Pressure Location Pulse Ox 100 Oxygen Delivery Method Oxygen Flow Rate (L/min) Positive well nourished General Appearance ED: NAD HEENT Reports moist mucous membranes Negative for trauma or tenderness Eyes PERRL and EOMs intact bilaterally General Eye ED: Negative for pale conjunctiva or scleral icterus Chest Wall inspection of chest normal and palpation of chest normal Chest Narrative: There is a dressing over the left lateral ribs which is clean dry and intact. Resp normal respiratory effort and clear to auscultation bilaterally Cardio regular rate and regular rhythm GI normal to inspection, nondistended, normoactive bowel sounds GI Narrative: Mild tenderness to the mid abdomen. Abdomen is not appear distended. Abdomen is nonperitoneal. Colostomy bag noted in right lower abdomen with brown stool. Palpation: tender Back/Spine no CVA tenderness Extremity normal to inspection General Extremety ED: Negative for edema or tenderness General Extremity: Negative for edema Neuro oriented x3 Sensorium / Orientation: alert Psych mental status grossly normal MDM MDM MDM Narrative Medical decision making narrative: Patient presenting out of concern for GI bleed. He had outpatient labs drawn which showed she was anemic. Apparently this is an acute on chronic issue. He states he has had multiple scopes as well as swallow endoscopy which did not diagnose bleed. Apparently he is also had bleeding scans. Patient's only complaint is generalized weakness. His lab work drawn today shows a white blood cell count of 6.2, hemoglobin 6.1, hematocrit 19.9, platelets 167. BMP shows normal electrolytes however his creatinine is 6.27 however he is a dialysis patient. Troponin is negative. Patient had EKG which shows a sinus rhythm at 67 bpm with first-degree AV block as interpreted by myself. This x-ray is interpreted by myself show some mild vascular congestion and bibasilar pleural effusions as well as Pleurx catheters. The radiologist does agree. Patient had CT of the abdomen pelvis performed without contrast because he was having some mild abdominal pain. This identified a right lower quadrant ostomy with mildly prominent hyperdense bowel and adjacent fluid. This could represent blood-filled bowel lumen/bowel inflammation/ischemia as well as a new 1.5 x 1.4 cm lingular nodule. I did discuss the case with the hospitalist who is amenable to admission however after talking with Dr. Henderson he did not feel he could add any benefit to the patient's care as he is done multiple endoscopies and not found any bleeding. He states that he has previously referred him to other specialists however he does not believe the patient goes to them and then returns to [facility] and repeatedly gets admitted for these problems. He feels the patient would benefit from transfer to a another facility who has a specialist who can address his small bowel which he believes is the source. This was discussed with the patient and he wished to go to [facility]. [facility] did accept. Blood products were started at [facility] and patient will be transferred with plan to have dialysis after his transfusion. Patient is stable on transfer Impression: 1. GI bleed 2. Blood loss anemia 3. Chronic renal failure 4. Lung nodule Lab Data Labs: Laboratory Results - last 24 hr 03/14/21 03/14/21 03/14/21 15:25 15:25 15:25 WBC 6.2 RBC 1.83 L Hgb 6.1 L Hct 19.9 L MCV 108.7 H MCH 33.3 H MCHC 30.7 L RDW Std Deviation 77.9 H RDW Coeff of Eleni 19.8 H Plt Count 167 MPV 11.2 Immature Gran % (Auto) 0.500 Neut % (Auto) 80.5 H Lymph % (Auto) 7.7 L [place] % (Auto) 8.8 Eos % (Auto) 2.2 Baso % (Auto) 0.3 Absolute Neuts (auto) 5.0 Absolute Lymphs (auto) 0.48 L Nucleated RBC % 0 Differential Comment SCANNED Polychromasia RARE Anisocytosis 1+ PT 14.6 INR 1.2 Sodium Potassium Chloride Carbon Dioxide Anion Gap BUN Creatinine Estim Creat Clear Calc Est GFR (MDRD) Af Amer Est GFR (MDRD) Non-Af BUN/Creatinine Ratio Glucose Calcium Total Bilirubin AST ALT Alkaline Phosphatase Troponin I Total Protein Albumin Globulin Albumin/Globulin Ratio Lipase Blood Type A NEGATIVE Antibody Screen NEGATIVE Crossmatch See Detail 03/14/21 15:25 WBC RBC Hgb Hct MCV MCH MCHC RDW Std Deviation RDW Coeff of Eleni Plt Count MPV Immature Gran % (Auto) Neut % (Auto) Lymph % (Auto) [place] % (Auto) Eos % (Auto) Baso % (Auto) Absolute Neuts (auto) Absolute Lymphs (auto) Nucleated RBC % Differential Comment Polychromasia Anisocytosis PT INR Sodium 134 L Potassium 3.8 Chloride 98 Carbon Dioxide 29.0 Anion Gap 7 BUN 60 H Creatinine 6.27 H Estim Creat Clear Calc 10.03 Est GFR (MDRD) Af Amer 11 L Est GFR (MDRD) Non-Af 10 L BUN/Creatinine Ratio 9.6 L Glucose 102 Calcium 8.5 Total Bilirubin 0.70 AST 15 ALT 17 Alkaline Phosphatase 190 H Troponin I 0.017 Total Protein 6.7 Albumin 2.7 L Globulin 4.0 Albumin/Globulin Ratio 0.7 L Lipase 102 Blood Type Antibody Screen Crossmatch Radiography Diagnostic Testing: Radiology Impression Chest X-Ray 03/14/21 15:04 IMPRESSION: Bilateral Pleurx catheters with similar volume pleural effusions. Bilateral lower lobe infiltrates with vascular congestion; query CHF (stable). Electronically Signed: Nabil Prater MD ([facility]) at 15:58 EDT , Service support , Abdomen/Pelvis CT 03/14/21 15:05 IMPRESSION: 1. Right lower quadrant ostomy with mildly prominent hyperdense bowel and adjacent fluid. This could represent blood-filled bowel lumen/bowel inflammation/ischemia. 2. Right inguinal hernia containing small bowel with hernia sac fluid but no evidence of bowel obstruction. 3. Right lower quadrant ostomy, left upper quadrant colostomy. Subtotal colectomy. 4. Bilateral pleural effusions with Pleurx catheters. Suspect CHF lower lobe edema. 5. 1.5 x 1.4 cm lingular nodule (incompletely visualized), new since chest CT of 12/18/2018. MAY represent localized atelectasis or infiltrate, however, neoplasm is also possible. Dedicated chest CT to evaluate for additional nodules suggested and will determine additional follow-up/workup. 6. 7 mm noncalcified nodule in the posterior right lower lobe. Unknown interval change as nodule is in segment of previous atelectasis. 7. Additional stable chronic changes, as above. Electronically Signed: Nabil Prater MD ([facility]) at 16:14 EDT , Service support , Discharge Plan Triage Chief Complaint: GI Bleed Other Complaint: Shortness of Breath ED Provider: Santino Phillips Dx/Rx/DC Orders Prescriptions: No Action carvedilol [Coreg] 25 mg tablet 12.5 mg PO BID RF: 0 ipratropium-albuterol 3 ML solution for nebulization 1 inh INHALATION Q4H PRN PRN (Reason: Sob &/Or Wheezing) RF: 0 budesonide 0.5 MG/2 ML suspension for nebulization 1 inh INHALATION BID RF: 0 rosuvastatin 40 MG tablet 40 mg PO QHS RF: 0 sucralfate 1 GM tablet 1 gm PO BID RF: 0 omega-3 fatty acids-fish oil 1 EACH capsule 1 ea PO DAILY RF: 0 cholecalciferol (vitamin D3) 50 MCG capsule 2,000 unit PO DAILY RF: 0 pantoprazole 40 MG tablet 40 mg PO BID RF: 0 Trelegy Ellipta 200-62.5-25 mcg blister with device 1 inh INHALATION DAILY RF: 0 azithromycin [Zithromax] 250 mg tablet 250 mg PO MOWEFR RF: 0 Primary Care Provider: Tania Berger NP Referrals: Tania Berger NP, [employer]GER[employer] [Primary Care Provider] - Disposition Disposition: Acute Care Hospital Discharge Location: [facility] Discharge Date/Time: 03/14/21 19:30
[2021-03-14] MEDS: hydrOXYzine PAM 25 MG Capsule PO (15:28)
[2021-03-14 15:37] LABS: Absolute Lymphocyte Count 0.48 X10^3/uL (0.83-4.51); Basophil# 0.02 X10^3/uL; Basophil% 0.3 % (0-1); Eosinophil# 0.14 X10^3/uL; Eosinophils% 2.2 % (0-5); Hematocrit 19.9 % (40-54); Hemoglobin 6.1 g/dL (13.0-16.5); Lymphocyte # 0.48 X10^3/ul (0.83-4.51); Lymphocyte % 7.7 % (19-41); Mean Corp Hgb Conc 30.7 g/dL (32-36); Mean Corpuscular Hgb 33.3 pg (27.0-32.0); Mean Corpuscular Volume 108.7 fL (80-94); Mean Platelet Vol. 11.2 fl (6.2-12.0); Monocyte# 0.55 X10^3/uL; Monocyte% 8.8 % (0-10); NRBC Flagged by Analyzer 0 % (0-5); Neutrophil # 5.01 X10^3/uL (2.7-7.7); Neutrophil % 80.5 % (47-70); POSITIVE DIFFERENTIAL YES; POSITIVE MORPHOLOGY YES; Platelet Count 167 K/mm3 (150-450); RBC Distribution Width CV 19.8 % (11.6-14.6); RBC Distribution Width SD 77.9 fl (35.1-43.9); Red Blood Count 1.83 M/mm3 (4.6-6.2); White Blood Count 6.2 K/mm3 (4.4-11.0)
[2021-03-14 15:44] LABS: Differential Indicated SCAN CRITERIA MET
[2021-03-14 15:46] LABS: International Normalized Ratio 1.2; Prothrombin Time (Protime)PT. 14.6 SECONDS (11.7-14.9)
[2021-03-14 15:57] LABS: ALB/GLOB Ratio 0.7 RATIO (0.9-2.4); AST(SGOT) 15 U/L (15-37); Alanine Aminotransfer ALT/SGPT 17 U/L (16-61); Albumin, Serum 2.7 g/dL (3.2-5.0); Alkaline Phosphatase 190 U/L (45-117); Anion Gap 7 (5-15); BUN 60 mg/dL (7-18); BUN/Creat Ratio 9.6 RATIO (10-20); Calcium,Total 8.5 mg/dL (8.5-10.1); Chloride 98 mmol/L (98-107); Creatinine, Serum 6.27 mg/dL (0.70-1.30); EST Glomerular Filtration Rate 10 mL/min (>60); Est Glom Filt Rate - Afr Amer 11 mL/min (>60); Estimated Creatinine Clearance 10.03 ml/min; Glucose 102 mg/dL (74-106); Lipase 102 U/L (73-393); Potassium 3.8 mmol/L (3.5-5.1); Protein, Total 6.7 g/dL (6.4-8.2); Sodium Level 134 mmol/L (136-145)
[2021-03-14 16:08] LABS: Anisocytosis 1+; Differential Comment SCANNED; Polychromasia RARE
--- NOTE | 2021-03-14 17:26 | ED.RN ---
pre blood vitals: 76hr 16 breaths, 98% on 3 liter nasal canal,
--- NOTE | 2021-03-14 17:28 | ED.RN ---
1726 pre blood vitals: 76hr, 23 breaths, 100% on 3 liters nasal canula, 138/60, 97.6 temp. Blood verified with Nathalie Suggs rn at 1726 1731 vitals: 75 hr, 24 breaths, 99% nasal canula at 3 liters, 97.9 temp, 125/84 1736 vitals: 74hr, 19 breaths, 99% nasal canula at 3 liters, 98.0 temp, 130/53 1741 Vitals: 75hr, 23 breaths, 99% nasal canula at 3 liters, 97.7 temp, 128/60 Blood flow rate increased to 400 cc/hr.
--- NOTE | 2021-03-14 17:30 | ED.RN ---
PHYSICIANS CALLED ETA 60 MIN
--- NOTE | 2021-03-14 18:11 | ED.RN ---
Blood flow rate maintained at 400cc/hr. no s/s of hemolytic reaction. IV site pink and patent with dressing intake. sonido parsons rn [id number]
--- NOTE | 2021-03-14 18:15 | ED.RN ---
first attempt made to call report. 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 no message left. will call back. sonido parsons rn [phone]
--- NOTE | 2021-03-14 18:47 | ED.RN ---
report given to Amy RN at [facility]
--- NOTE | 2021-03-14 19:27 | ED.RN ---
Infusion of second bag of blood continued by EMS during transport. Will finish infusing in route. Pt show no s/s of distress. Vitals stable and IV site patent, pink, and dressing intake. sonido parsons rn [id number]
== END 2021-03-14 19:30 | disposition short-term general hospital (02) ==
LOC: ED 15:58
PROVIDERS: Emergency Provider Student in an Organized Health Care Education/Training Program; PCP Nurse Practitioner Family
DX: K92.2 Gastrointestinal hemorrhage, unspecified (principal); D50.0 Iron deficiency anemia secondary to blood loss (chronic); R91.1 Solitary pulmonary nodule; I13.0 Hypertensive heart and chronic kidney disease with heart failure and stage 1 through stage 4 chronic kidney disease, or unspecified chronic kidney disease; I50.30 Unspecified diastolic (congestive) heart failure; N18.9 Chronic kidney disease, unspecified; Z93.3 Colostomy status; I44.0 Atrioventricular block, first degree; N40.0 Benign prostatic hyperplasia without lower urinary tract symptoms; I73.9 Peripheral vascular disease, unspecified; E78.5 Hyperlipidemia, unspecified; I25.10 Atherosclerotic heart disease of native coronary artery without angina pectoris; I25.2 Old myocardial infarction; J44.9 Chronic obstructive pulmonary disease, unspecified; Z99.2 Dependence on renal dialysis; Z95.5 Presence of coronary angioplasty implant and graft; Z90.49 Acquired absence of other specified parts of digestive tract; Z87.19 Personal history of other diseases of the digestive system; Z79.899 Other long term (current) drug therapy; Z87.891 Personal history of nicotine dependence
CPT/HCPCS: 71045; 74176; 80053; 82274; 83690; 84484; 85025; 85610; 86850; 86900; 86901; 86920; 86921; 86922; 93005; 99285; J7050; P9016; A4216

== ENCOUNTER 2021-04-03 16:07 | Emergency (ER) | payer MEDICARE, SELFPAY ==
[2021-03-14 14:35] VITALS: BMI 23.7
[2021-04-03] VITALS (11 sets, daily range): BP systolic 115–144; BP diastolic 45–83; PULSE 77–87; RESP 14–25; TEMP 36.8–37.1; O2SAT 95–100; BMI 22.6
--- NOTE | 2021-04-03 16:36 | EDS_ITS ---
HPI History of Present Illness Chief Complaint: Abn Labs Informant: patient Onset/Context/Timing Onset: Days Context: Gradual Onset Timing: Continuous Quality: Symptomatic anemia Location: Not applicable Current Severity: Mild Maximum Severity: Moderate Worsened by: Activity Relieved by: Nothing Associated Symptoms Associated Symptoms: History of epistaxis, recent surgery and chronic GI blood loss Narrative Narrative: Patient is a 70-year-old who appears older than age with multiple medical problems who presents because of symptomatic anemia. Hemoglobin was 6.5 earlier today. He is chronically on oxygen. He states he is able to walk 10 to 15 feet before he becomes short of breath. He recently had a significant nosebleed. He is presently not bleeding. He also had right and left thoracostomy for chronic congestive heart failure. He had a capsule study performed at [facility]. Results are unknown. Apparently the capsule was lost. He was last transfused 2 units of blood on March 14. He has end-stage renal disease on hemodialysis Tuesday, Tuesday and Tuesday. He states his stool is dark. Stool is not black or maroon in color. 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 He reports prior history of atrial fibrillation. Prior similar symptoms: Yes Recent Illness/Hospitalization: No PFSH PFSH Medical History Anemia Atherosclerotic heart disease of [place] coronary artery without angina pectoris BPH (benign prostatic hyperplasia) COPD (chronic obstructive pulmonary disease) Diastolic CHF GI bleed History of non-ST elevation myocardial infarction (NSTEMI) (01/21/11) HLD (hyperlipidemia) HTN (hypertension) PAD (peripheral artery disease) Tobacco dependence Home Medications ipratropium-albuterol 1 inh INHALATION Q4H PRN PRN 07/23/19 [History Last Taken 10/30/20 08:00] rosuvastatin 40 mg PO QHS 07/23/19 [History Last Taken 04/02/21] cholecalciferol (vitamin D3) 2,000 unit PO DAILY 10/01/20 [History Last Taken 04/03/21] sucralfate 1 gm PO BID 10/01/20 [History Last Taken 04/03/21] carvedilol 25 mg tablet 12.5 mg PO BID 10/29/20 [History Last Taken 04/03/21] pantoprazole 40 mg PO BID 10/30/20 [History Last Taken 04/03/21] azithromycin [Zithromax] 250 mg PO MOWEFR 03/14/21 [History Last Taken 03/13/21] [id number] [Trelegy Ellipta] 1 inh INHALATION DAILY 03/14/21 [History Last Taken 04/02/21] B complex with C 20-folic acid [Triphrocaps] 1 cap PO DAILY 04/03/21 [History Last Taken 04/03/21] hydroxyzine pamoate 25 mg PO TID PRN PRN 04/03/21 [History Last Taken 04/03/21 12:00] sildenafil 100 mg PO PRN PRN 04/03/21 [History Last Taken Unknown] tamsulosin 0.8 mg PO DAILY 04/03/21 [History Last Taken 04/03/21] Allergy/AdvReac Type Severity Reaction Status Date / Time irbesartan [From Avapro] Allergy Severe Blisters Verified 04/03/21 16:11 pregabalin [From Lyrica] Allergy seizure-like Verified 04/03/21 16:41 activity zolpidem [From Ambien] AdvReac Severe made me Verified 04/03/21 16:11 go crazy, memory loss amoxicillin AdvReac Intermediate PASSES Verified 04/03/21 16:11 BLOOD IN STOOL gabapentin AdvReac Unknown emotional Verified 04/03/21 16:11 metronidazole [From Flagyl] AdvReac pt states Verified 04/03/21 16:11 he got palpitations and nose bleed. Family History Father CAD (coronary artery disease) Hypertension Kidney disease CVA (cerebral vascular accident) Other Cancer Surgical History history of surgically created arteriovenous fistula S/P CABG x 3 (01/26/11) s/p fistulogram (~09/28/18) Status post peripheral artery angioplasty with insertion of stent (~2010) Stented coronary artery Social History (Updated 04/03/21 @ 16:[address] Nickolas Mccollum MD) household members: spouse Smoking Status: Former smoker alcohol intake: current alcohol intake frequency: 3 or more drinks per day substance use type: does not use ROS ROS ED Constitutional Constitutional ED: Denies chills, fever(s), subjective or sweats Eyes Eyes: Denies blurry vision, change in vision or diplopia ENT ENT ED: Denies ear pain, rhinorrhea or sore throat Cardiovascular Cardiovascular: Reports orthopnea; Denies chest pain, palpitations, paroxysmal nocturnal dyspnea or racing heartbeat Respiratory/Chest Respiratory/Chest: Reports dyspnea, dyspnea on exertion and orthopnea; Denies cough, paroxysmal nocturnal dyspnea or sputum Gastrointestinal Gastrointestinal: Denies abdominal pain, diarrhea, melena, nausea or vomiting Genitourinary Genitourinary ED: Reports other Details: Patient states he does not make urine. Musculoskeletal Musculoskeletal: Reports arthralgias, back pain, myalgias and other Details: He also complains of chest pain since removal of chest tubes. His myalgias arthralgias and back pain are chronic. He also reports symptoms consistent with claudication. He states that he had an attempt at revascularization, which failed. Integumentary Reports rash Neurologic Neurologic: Reports paresthesias and weakness; Denies headache(s) Psychiatric Psychiatric: Reports depression EXAM Physical Exam Const Vital Signs: 04/03/21 16:11 04/03/21 17:00 04/03/21 17:09 Temperature 98.2 F Temperature Source Temporal Pulse Rate 79 87 Respiratory Rate 14 16 Respiratory Effort Labored Respiratory Pattern Normal Blood Pressure 117/49 L 144/47 H Blood Pressure Mean 71 79 Blood Pressure Source Blood Pressure Position Blood Pressure Location Pulse Ox 97 100 Oxygen Delivery Method Room Air Nasal Cannula Oxygen Flow Rate (L/min) 04/03/21 18:09 04/03/21 18:41 04/03/21 18:50 Temperature 98.4 F 98.3 F Temperature Source Temporal Temporal Pulse Rate 79 81 85 Respiratory Rate 22 H 18 23 H Respiratory Effort Respiratory Pattern Blood Pressure 140/83 H 121/49 H 135/45 H Blood Pressure Mean 102 73 75 Blood Pressure Source Monitor Monitor Blood Pressure Position Sitting Blood Pressure Location Right Arm Right Arm Pulse Ox 95 99 98 Oxygen Delivery Method Nasal Cannula Nasal Cannula Nasal Cannula Oxygen Flow Rate (L/min) 3 3 04/03/21 19:00 04/03/21 19:05 04/03/21 19:58 Temperature 98.7 F 98.7 F 98.6 F Temperature Source Temporal Temporal Temporal Pulse Rate 79 78 77 Respiratory Rate 22 H 14 16 Respiratory Effort Respiratory Pattern Blood Pressure 132/56 H 132/56 H 139/58 H Blood Pressure Mean 81 81 85 Blood Pressure Source Monitor Monitor Blood Pressure Position Sitting Semi-Fowlers Blood Pressure Location Right Arm Right Arm Pulse Ox 99 100 99 Oxygen Delivery Method Nasal Cannula Nasal Cannula Nasal Cannula Oxygen Flow Rate (L/min) 3 2 3 04/03/21 20:04 04/03/21 21:04 Temperature 98.4 F 98.2 F Temperature Source Temporal Temporal Pulse Rate 84 78 Respiratory Rate 21 H 18 Respiratory Effort Respiratory Pattern Blood Pressure 115/58 L 129/58 H Blood Pressure Mean 77 81 Blood Pressure Source Monitor Monitor Blood Pressure Position Semi-Fowlers Semi-Fowlers Blood Pressure Location Right Arm Right Arm Pulse Ox 99 99 Oxygen Delivery Method Nasal Cannula Nasal Cannula Oxygen Flow Rate (L/min) 3 3 Positive well developed General Appearance ED: well developed and other Patient does not appear well. According to he is at baseline. HEENT HEENT Narrative: . Nares patent with no discharge. Posterior pharynx unremarkable. Eyes PERRL and EOMs intact bilaterally General Eye ED: Yes pale conjunctiva; Negative for scleral icterus Neck no lymphadenopathy, supple and no JVD Resp normal respiratory effort Resp Narrative: There is end inspiratory rales noted at the left base. This is probably due to his chronic lung disease. Auscultation: rales and diminished lung sounds Cardio regular rate, regular rhythm, S1 normal heart sound, S2 normal heart sound and no murmurs GI normal to inspection, nondistended, normoactive bowel sounds and non-tender Palpation: soft Rectal Exam: other Other Details: Colostomy bag noted. Stool is dark brown. There is no blood or mucus noted. Back/Spine no CVA tenderness Cervical Spine: Negative for cervical spine tenderness Thoracic Spine / Upper Back: thoracic spinal tenderness and paraspinal muscle tenderness Extremity Negative for normal to inspection Extremity Narrative: DP and PT pulse are nonpalpable. Capillary refill is normal. Sensation is normal. His foot is not cool. General Extremety ED: Negative for edema or tenderness General Extremity: Negative for edema Neuro oriented x3 and CN's II-XII intact bilaterally Sensorium / Orientation: alert Psych mental status grossly normal Skin no rashes or lesions noted Skin Narrative: Chest tube sites are without evidence of infection. MDM MDM MDM Narrative Medical decision making narrative: With symptomatic anemia hemoglobin 6.8 patient will be transfused 2 units of blood. Patient was transfused 2 units of blood. He had no reaction. He was discharged to home. Lab Data Attestation: I reviewed the patient's lab results. Labs: Laboratory Results - last 24 hr 04/03/21 16:50 Blood Type A NEGATIVE Antibody Screen NEGATIVE Crossmatch See Detail Discharge Plan Triage Chief Complaint: Abn Labs ED Provider: Nickolas Mccollum Dx/Rx/DC Orders Clinical Impression: Symptomatic anemia, Encounter for blood transfusion Instructions: When You Need a Blood Transfusion (Adult), Anemia and Kidney Disease Prescriptions: No Action carvedilol [Coreg] 25 mg tablet 12.5 mg PO BID RF: 0 ipratropium-albuterol 3 ML solution for nebulization 1 inh INHALATION Q4H PRN PRN (Reason: Sob &/Or Wheezing) RF: 0 rosuvastatin 40 MG tablet 40 mg PO QHS RF: 0 sucralfate 1 GM tablet 1 gm PO BID RF: 0 cholecalciferol (vitamin D3) 50 MCG capsule 2,000 unit PO DAILY RF: 0 pantoprazole 40 MG tablet 40 mg PO BID RF: 0 Trelegy Ellipta 200-62.5-25 mcg blister with device 1 inh INHALATION DAILY RF: 0 azithromycin [Zithromax] 250 mg tablet 250 mg PO MOWEFR RF: 0 tamsulosin 0.4 mg capsule 0.8 mg PO DAILY RF: 0 Triphrocaps 1 mg capsule 1 cap PO DAILY RF: 0 hydroxyzine pamoate 25 mg capsule 25 mg PO TID PRN PRN (Reason: Itching) RF: 0 sildenafil 100 mg tablet 100 mg PO PRN PRN (Reason: Erectile Dysfunction) RF: 0 Primary Care Provider: Tania Berger NP Referrals: Tania Berger NP, [employer] [Primary Care Provider] - As Needed Disposition Disposition: Home, self care
--- NOTE | 2021-04-03 18:00 | ED.RN ---
Pt c/o of all over itching from his liver disease pt is requesting pain medication and something for the itching
[2021-04-03] MEDS: HYDROcodone Bitartrate/Apap 5/325 Tablet PO (18:31)
[2021-04-03] MEDS: DiphenhydrAMINE 25 MG Capsule PO (18:32)
== END 2021-04-03 21:31 | disposition home or self-care (01) ==
PROVIDERS: Emergency Provider Emergency Medicine; PCP Nurse Practitioner Family
DX: D64.9 Anemia, unspecified (principal); I13.2 Hypertensive heart and chronic kidney disease with heart failure and with stage 5 chronic kidney disease, or end stage renal disease; N18.6 End stage renal disease; Z99.2 Dependence on renal dialysis; I50.30 Unspecified diastolic (congestive) heart failure; E78.5 Hyperlipidemia, unspecified; I25.10 Atherosclerotic heart disease of native coronary artery without angina pectoris; N40.0 Benign prostatic hyperplasia without lower urinary tract symptoms; I73.9 Peripheral vascular disease, unspecified; I25.2 Old myocardial infarction; I48.91 Unspecified atrial fibrillation; J44.9 Chronic obstructive pulmonary disease, unspecified; Z99.81 Dependence on supplemental oxygen; Z93.3 Colostomy status; Z87.19 Personal history of other diseases of the digestive system; Z79.899 Other long term (current) drug therapy; Z87.891 Personal history of nicotine dependence
CPT/HCPCS: 86850; 86900; 86901; 86920; 86922; 99283; J7050; P9016

== ENCOUNTER → 2021-04-16 17:31 | Outpatient (CLI) | payer MEDICARE, SELFPAY ==
[2021-04-03 16:11] VITALS: BMI 22.6
== END ==
PROVIDERS: PCP Nurse Practitioner Family; Referring Provider Internal Medicine Nephrology; Visit Provider Internal Medicine Nephrology
DX: D64.9 Anemia, unspecified (principal)
CPT/HCPCS: 86850; 86900; 86901; 86920; 86922

== ENCOUNTER → 2021-04-17 09:06 | Outpatient (CLI) | payer MEDICARE, SELFPAY ==
[2021-04-03 16:11] VITALS: BMI 22.6
[2021-04-17] VITALS (8 sets, daily range): BP systolic 102–124; BP diastolic 31–50; PULSE 64–81; RESP 16–18; TEMP 36.4–37.1; O2SAT 98–100; BMI 22.6
[2021-04-17] MEDS: 0.9% NaCl Peripheral Flush Adult/Peds IV (09:41)
== END ==
PROVIDERS: PCP Nurse Practitioner Family; Referring Provider Internal Medicine Nephrology; Visit Provider Internal Medicine Nephrology
DX: D64.9 Anemia, unspecified (principal)
CPT/HCPCS: 36430; 86850; 86900; 86901; 86920; 86922; J7040; P9016; A4216

== ENCOUNTER 2021-05-04 14:22 | Emergency (ER) | payer MEDICARE, SELFPAY ==
[2021-04-17 09:39] VITALS: BMI 22.6
[2021-05-04] VITALS (14 sets, daily range): BP systolic 117–146; BP diastolic 53–69; PULSE 74–98; RESP 16–24; TEMP 35.6–36.8; O2SAT 98–100; BMI 22.7
--- NOTE | 2021-05-04 15:03 | EDS_ITS ---
HPI History of Present Illness Chief Complaint: Abn Labs Informant: patient and spouse/S.O. Narrative Narrative: Patient presents with low hemoglobins and black stool. He states for about 2 or 3 years he has had problems with intermittent bleeding in his stool. He has had an ostomy about 2-1/2 years ago. He states it was due to a blood clot. He has had multiple transfusions. He has had prior colonoscopies. He was last admitted approximately January or February. He was seen here and transferred to [facility] due to the complexity of the patient. He states he has been getting weak again for the last couple weeks. He gets short of breath and decreased energy if he walks across the room now. He does not have chest pain. He is not having abdominal pain. He does oftentimes have black stool. He will spray his stool with hydrogen peroxide to see if it bubbles like there is blood in there and this has been happening. He is no longer on any anticoagulation. He does not get heparin with his dialysis. He had normal full dialysis this morning and then came over because his hemoglobins are down to 5.5 and he just feels too weak. Nothing specifically makes his symptoms better. Activity makes him feel better. [facility] Medical History Anemia Atherosclerotic heart disease of [place] coronary artery without angina pectoris BPH (benign prostatic hyperplasia) COPD (chronic obstructive pulmonary disease) Diastolic CHF GI bleed GI bleed History of non-ST elevation myocardial infarction (NSTEMI) (01/21/11) HLD (hyperlipidemia) HTN (hypertension) PAD (peripheral artery disease) Tobacco dependence Home Medications ipratropium-albuterol 1 inh INHALATION Q4H PRN PRN 07/23/19 [History Last Taken 05/04/21] rosuvastatin 40 mg PO QHS 07/23/19 [History Last Taken 05/03/21] cholecalciferol (vitamin D3) 2,000 unit PO DAILY 10/01/20 [History Last Taken 05/03/21] sucralfate 1 gm PO BID 10/01/20 [History Last Taken 05/04/21] carvedilol 25 mg tablet 12.5 mg PO BID 10/29/20 [History Last Taken 05/03/21] pantoprazole 40 mg PO BID 10/30/20 [History Last Taken 05/04/21] azithromycin [Zithromax] 250 mg PO MOWEFR 03/14/21 [History Last Taken 04/29/21] B complex with C 20-folic acid [Triphrocaps] 1 cap PO DAILY 04/03/21 [History Last Taken 05/04/21] hydroxyzine pamoate 25 mg PO TID PRN PRN 04/03/21 [History Last Taken 1 Week Ago ~04/27/21] tamsulosin 0.8 mg PO DAILY 04/03/21 [History Last Taken 05/04/21] budesonide 0.5 mg INHALATION BID 05/04/21 [History Last Taken 05/04/21] epoetin last-epbx [Retacrit] 20,000 unit SUBCUT UD 05/04/21 [History Last Taken 05/04/21] Allergy/AdvReac Type Severity Reaction Status Date / Time irbesartan [From Avapro] Allergy Severe Blisters Verified 05/04/21 14:24 pregabalin [From Lyrica] Allergy seizure-like Verified 05/04/21 14:24 activity zolpidem [From Ambien] AdvReac Severe made me Verified 05/04/21 14:24 go crazy, memory loss amoxicillin AdvReac Intermediate PASSES Verified 05/04/21 14:24 BLOOD IN STOOL gabapentin AdvReac Unknown emotional Verified 05/04/21 14:24 metronidazole [From Flagyl] AdvReac pt states Verified 05/04/21 14:24 he got palpitations and nose bleed. Family History Father CAD (coronary artery disease) Hypertension Kidney disease CVA (cerebral vascular accident) Other Cancer Surgical History history of surgically created arteriovenous fistula S/P CABG x 3 (01/26/11) s/p fistulogram (~09/28/18) Status post peripheral artery angioplasty with insertion of stent (~2010) Stented coronary artery Social History household members: spouse Smoking Status: Former smoker alcohol intake: current alcohol intake frequency: 3 or more drinks per day substance use type: does not use ROS ROS ED Constitutional Constitutional ED: Denies fever(s) or sweats Eyes Eyes: Denies blurry vision ENT ENT ED: Denies sore throat Cardiovascular Cardiovascular: Denies chest pain or palpitations Respiratory/Chest Respiratory/Chest: Reports dyspnea on exertion; Denies cough or dyspnea Gastrointestinal Gastrointestinal: Reports melena; Denies abdominal pain, nausea or vomiting Genitourinary Genitourinary ED: Reports other Details: Rarely makes urine. Musculoskeletal Musculoskeletal: Denies arthralgias Integumentary Reports other Details: Patient does complain of itching which is a common problem. ; Denies rash Neurologic Neurologic: Denies headache(s) Allergic/Immunologic Allergic/Immunologic ED: Denies urticaria EXAM Physical Exam Const Vital Signs: 05/04/21 14:24 05/04/21 14:33 05/04/21 16:50 Temperature 96.9 F L Temperature Source Temporal Pulse Rate 74 90 Respiratory Rate 17 18 Respiratory Effort Short of Breath Respiratory Pattern Blood Pressure 117/58 L 123/53 H Blood Pressure Mean 77 76 Blood Pressure Source Blood Pressure Position Blood Pressure Location Pulse Ox 99 100 Oxygen Delivery Method Room Air Nasal Cannula Oxygen Flow Rate (L/min) 3 05/04/21 17:02 05/04/21 17:07 05/04/21 17:22 Temperature 97.3 F L 96.6 F L Temperature Source Temporal Temporal Pulse Rate 91 90 86 Respiratory Rate 18 18 18 Respiratory Effort Respiratory Pattern Blood Pressure 123/67 H 136/61 H Blood Pressure Mean 85 86 Blood Pressure Source Monitor Monitor Blood Pressure Position Semi-Fowlers Semi-Fowlers Blood Pressure Location Right Arm Right Arm Pulse Ox 100 100 Oxygen Delivery Method Nasal Cannula Nasal Cannula Oxygen Flow Rate (L/min) 3 3 05/04/21 18:03 05/04/21 18:22 05/04/21 19:00 Temperature 98.3 F 97.6 F L Temperature Source Temporal Temporal Pulse Rate 89 93 92 Respiratory Rate 16 16 Respiratory Effort Respiratory Pattern Blood Pressure 142/60 H 134/63 H 124/62 H Blood Pressure Mean 87 86 82 Blood Pressure Source Blood Pressure Position Blood Pressure Location Pulse Ox 100 99 Oxygen Delivery Method Nasal Cannula Oxygen Flow Rate (L/min) 3 05/04/21 19:01 05/04/21 19:48 05/04/21 20:07 Temperature 96.1 F L 96.1 F L 97.4 F L Temperature Source Temporal Temporal Temporal Pulse Rate 89 89 89 Respiratory Rate 18 18 20 H Respiratory Effort Respiratory Pattern Blood Pressure 124/62 H 124/62 H 126/60 H Blood Pressure Mean 82 82 82 Blood Pressure Source Monitor Monitor Monitor Blood Pressure Position Semi-Fowlers Semi-Fowlers Semi-Fowlers Blood Pressure Location Right Arm Right Arm Right Arm Pulse Ox 100 100 100 Oxygen Delivery Method Room Air Nasal Cannula Nasal Cannula Oxygen Flow Rate (L/min) 3 3 05/04/21 20:38 05/04/21 21:07 Temperature 97.9 F Temperature Source Temporal Pulse Rate 91 91 Respiratory Rate 24 H 18 Respiratory Effort Respiratory Pattern Normal Blood Pressure 134/69 H Blood Pressure Mean 90 Blood Pressure Source Monitor Blood Pressure Position Semi-Fowlers Blood Pressure Location Right Arm Pulse Ox 100 Oxygen Delivery Method Nasal Cannula Oxygen Flow Rate (L/min) 3 General Appearance ED: pallor and other Patient looks tired. ; Negative for cyanotic or diaphoretic HEENT Negative for trauma Eyes General Eye ED: Yes pale conjunctiva Neck supple Chest Wall inspection of chest normal Resp normal respiratory effort and clear to auscultation bilaterally Cardio regular rate and regular rhythm GI normal to inspection, nondistended, normoactive bowel sounds and non-tender GI Narrative: Patient has an ostomy in the right side of his abdomen. It is darker brown color is green-tinged stool. There is a hint of pink in a few spots. He states normally his stool has been much parth recently over the last week. This is more normal looking than it has been. Palpation: soft Back/Spine no CVA tenderness Extremity normal to inspection General Extremety ED: Negative for edema or tenderness General Extremity: Negative for edema Neuro oriented x3 Sensorium / Orientation: alert Psych mental status grossly normal Skin no rashes or lesions noted General Skin Exam: pallor MDM MDM MDM Narrative Medical decision making narrative: We had multiple calls about admitting this patient. We have talked to hospitalist and surgeon here. With Dr. Jocelyn Honeycutt. I talked to [facility] in [place]. We called donato. We called Soledad larios. We have called [facility]. No one has beds or can accept the patient. We continue to manage and treat the patient here. He was able to get his full 2 units of blood. He feels good now. He would like to go home. He states he has been having this for 3 years. His stool is coming out greenish now and not black. He states this is a recurrent problem and he would rather just follow-up at this point. His actually does home hemodialysis for him. This is a very uncommon situation. She is going to do extra dialysis tomorrow to get fluid off. They can follow his hemoglobins at home. In light of the special home care, I think it is okay to get him home and have close follow-up. We discussed reasons to return and utilization of EMS if needed. Lab Data Labs: Laboratory Results - last 24 hr 05/04/21 05/04/21 05/04/21 14:45 14:45 14:45 WBC 9.4 RBC 1.82 L Hgb 5.9 L* Hct 18.2 L MCV 100.0 H MCH 32.4 H MCHC 32.4 RDW Std Deviation 79.7 H RDW Coeff of Eleni 23.4 H Plt Count 203 MPV 10.5 Immature Gran % (Auto) 1.400 H Neut % (Auto) 85.0 H Lymph % (Auto) 6.5 L [place] % (Auto) 6.0 Eos % (Auto) 1.0 Baso % (Auto) 0.1 Absolute Neuts (auto) 8.0 H Absolute Lymphs (auto) 0.61 L Nucleated RBC % 0.2 Diff Path Review May foll Platelet Estimate ADEQUATE Polychromasia RARE Anisocytosis 2+ Sodium 132 L Potassium 3.1 L Chloride 94 L Carbon Dioxide 31.0 Anion Gap 7 BUN 45 H Creatinine 4.12 H Estim Creat Clear Calc 15.27 Est GFR (MDRD) Af Amer 19 L Est GFR (MDRD) Non-Af 15 L BUN/Creatinine Ratio 10.9 Glucose 147 H Lactic Acid 2.2 H* Calcium 8.6 Total Bilirubin 0.90 AST 14 L ALT 17 Alkaline Phosphatase 171 H Total Protein 7.1 Albumin 2.9 L Globulin 4.2 Albumin/Globulin Ratio 0.7 L Blood Type Antibody Screen Crossmatch 05/04/21 05/04/21 14:45 19:45 WBC RBC Hgb Hct MCV MCH MCHC RDW Std Deviation RDW Coeff of Eleni Plt Count MPV Immature Gran % (Auto) Neut % (Auto) Lymph % (Auto) [place] % (Auto) Eos % (Auto) Baso % (Auto) Absolute Neuts (auto) Absolute Lymphs (auto) Nucleated RBC % Diff Path Review Platelet Estimate Polychromasia Anisocytosis Sodium Potassium Chloride Carbon Dioxide Anion Gap BUN Creatinine Estim Creat Clear Calc Est GFR (MDRD) Af Amer Est GFR (MDRD) Non-Af BUN/Creatinine Ratio Glucose Lactic Acid 1.2 Calcium Total Bilirubin AST ALT Alkaline Phosphatase Total Protein Albumin Globulin Albumin/Globulin Ratio Blood Type A NEGATIVE Antibody Screen NEGATIVE Crossmatch See Detail Discharge Plan Triage Chief Complaint: Abn Labs ED Provider: Fabrizio Balderas Dx/Rx/DC Orders Clinical Impression: Anemia, Encounter for blood transfusion, Gastrointestinal bleed Instructions: Anemia Prescriptions: No Action carvedilol [Coreg] 25 mg tablet 12.5 mg PO BID RF: 0 ipratropium-albuterol 3 ML solution for nebulization 1 inh INHALATION Q4H PRN PRN (Reason: Sob &/Or Wheezing) RF: 0 rosuvastatin 40 MG tablet 40 mg PO QHS RF: 0 sucralfate 1 GM tablet 1 gm PO BID RF: 0 cholecalciferol (vitamin D3) 50 MCG capsule 2,000 unit PO DAILY RF: 0 pantoprazole 40 MG tablet 40 mg PO BID RF: 0 azithromycin [Zithromax] 250 mg tablet 250 mg PO MOWEFR RF: 0 tamsulosin 0.4 mg capsule 0.8 mg PO DAILY RF: 0 Triphrocaps 1 mg capsule 1 cap PO DAILY RF: 0 hydroxyzine pamoate 25 mg capsule 25 mg PO TID PRN PRN (Reason: Itching) RF: 0 budesonide 0.5 mg/2 mL suspension for nebulization 0.5 mg inhalation BID RF: 0 Retacrit 20,000 unit/mL Solution 20,000 unit SUBCUT UD RF: 0 Primary Care Provider: Tania Berger NP Referrals: Tania Berger NP, [employer] [Primary Care Provider] - 3-5 Days Disposition Disposition: Home, Self Care
[2021-05-04] MEDS: DiphenhydrAMINE 50 MG/ML Syringe 25 MG IV (15:15)
[2021-05-04 15:20] LABS: Absolute Lymphocyte Count 0.61 X10^3/uL (0.83-4.51); Basophil# 0.01 X10^3/uL; Basophil% 0.1 % (0-1); Eosinophil# 0.09 X10^3/uL; Hematocrit 18.2 % (40-54); Lymphocyte # 0.61 X10^3/ul (0.83-4.51); Lymphocyte % 6.5 % (19-41); Mean Corp Hgb Conc 32.4 g/dL (32-36); Mean Corpuscular Hgb 32.4 pg (27.0-32.0); Mean Platelet Vol. 10.5 fl (6.2-12.0); Monocyte# 0.56 X10^3/uL; NRBC Flagged by Analyzer 0.2 % (0-5); POSITIVE COUNT YES; POSITIVE MORPHOLOGY YES; Platelet Count 203 K/mm3 (150-450); RBC Distribution Width CV 23.4 % (11.6-14.6); RBC Distribution Width SD 79.7 fl (35.1-43.9); Red Blood Count 1.82 M/mm3 (4.6-6.2)
[2021-05-04 15:24] LABS: Differential Indicated SCAN CRITERIA MET; White Blood Count 9.4 K/mm3 (4.4-11.0)
[2021-05-04 15:33] LABS: ALB/GLOB Ratio 0.7 RATIO (0.9-2.4); AST(SGOT) 14 U/L (15-37); Alanine Aminotransfer ALT/SGPT 17 U/L (16-61); Albumin, Serum 2.9 g/dL (3.2-5.0); Alkaline Phosphatase 171 U/L (45-117); Anion Gap 7 (5-15); BUN 45 mg/dL (7-18); BUN/Creat Ratio 10.9 RATIO (10-20); Calcium,Total 8.6 mg/dL (8.5-10.1); Chloride 94 mmol/L (98-107); Creatinine, Serum 4.12 mg/dL (0.70-1.30); EST Glomerular Filtration Rate 15 mL/min (>60); Est Glom Filt Rate - Afr Amer 19 mL/min (>60); Estimated Creatinine Clearance 15.27 ml/min; Globulin 4.2 g/dL (2.2-4.2); Glucose 147 mg/dL (74-106); Potassium 3.1 mmol/L (3.5-5.1); Protein, Total 7.1 g/dL (6.4-8.2); Sodium Level 132 mmol/L (136-145)
[2021-05-04 15:50] LABS: Lactic Acid 2.2 mmol/L (0.4-1.9)
[2021-05-04 16:20] LABS: Hemoglobin 5.9 g/dL (13.0-16.5)
[2021-05-04 16:21] LABS: Anisocytosis 2+; Platelet Estimate ADEQUATE (ADEQ); Polychromasia RARE
[2021-05-04] MEDS: Ipratropium/Albuterol Sulfate 3 ML AMPUL.NEB INHALATION ×2 (17:02→20:37)
[2021-05-04] MEDS: hydrOXYzine PAM 25 MG Capsule PO (17:32)
[2021-05-04 19:15] LABS: Reflex Lactate? Y
[2021-05-04 20:29] LABS: Lactic Acid 1.2 mmol/L (0.4-1.9)
[2021-05-05 12:43] LABS: Pathologist Review Reviewed
== END 2021-05-04 22:20 | disposition home or self-care (01) ==
PROVIDERS: Emergency Provider Emergency Medicine; PCP Nurse Practitioner Family
DX: D64.9 Anemia, unspecified (principal); K92.2 Gastrointestinal hemorrhage, unspecified; Z99.2 Dependence on renal dialysis; E78.5 Hyperlipidemia, unspecified; I11.0 Hypertensive heart disease with heart failure; I25.10 Atherosclerotic heart disease of native coronary artery without angina pectoris; I50.30 Unspecified diastolic (congestive) heart failure; I25.2 Old myocardial infarction; I73.9 Peripheral vascular disease, unspecified; J44.9 Chronic obstructive pulmonary disease, unspecified; N40.0 Benign prostatic hyperplasia without lower urinary tract symptoms; Z87.19 Personal history of other diseases of the digestive system; Z79.899 Other long term (current) drug therapy; Z87.891 Personal history of nicotine dependence
CPT/HCPCS: 80053; 82274; 83605; 85018; 85025; 86850; 86900; 86901; 86920; 86922; 87426; 94640; 96374; 99284; J7040; P9016; A4216

== ENCOUNTER → 2021-05-04 | Outpatient (CLI) | payer MEDICARE, SELFPAY ==
[2021-04-17 09:39] VITALS: BMI 22.6
[2021-05-04 13:34] LABS: Hemoglobin 5.5 g/dL (13.0-16.5)
== END | disposition home or self-care (01) ==
PROVIDERS: PCP Nurse Practitioner Family; Visit Provider Internal Medicine Nephrology
DX: D64.9 Anemia, unspecified (principal)
CPT/HCPCS: 85018

== ENCOUNTER 2022-01-14 15:10 | Outpatient (CLI) | payer MEDICARE, SELFPAY ==
--- NOTE | 2022-01-14 15:30 | RAD_ITS ---
STUDY: X-RAY - LEFT FOOT CLINICAL: Male, 71 years old. FALL LT FOOT PAIN TECHNIQUE: 3 view(s) of the foot. COMPARISON: None. FINDINGS: There are moderate arterial calcifications ventral and dorsal to the ankle and in the plantar and dorsal foot. Demineralization, diffuse. No fracture or dislocation identified. Soft tissue swelling of the dorsum of the foot at the level of the metatarsophalangeal joints best seen on the lateral view. Incidentally noted calcaneal spur. RAD/Foot min 3 Views IMPRESSION: No acute findings. Mild dorsal soft tissue swelling. Advanced arterial calcifications. Electronically Signed: Velvet Pulido MD at 21:05 EDT ,
== END 2022-01-14 23:59 | disposition home or self-care (01) ==
LOC: RAD 15:15
PROVIDERS: PCP Nurse Practitioner Family; Referring Provider Internal Medicine Nephrology; Visit Provider Internal Medicine Nephrology
DX: M79.672 Pain in left foot (principal)
CPT/HCPCS: 73630

== ENCOUNTER 2022-02-15 12:43 | Outpatient (RCR) | payer MEDICARE, SELFPAY ==
[2022-02-15 13:13] VITALS: PULSE 74; RESP 18; TEMP 36.2; BMI 23.1
--- NOTE | 2022-02-15 14:28 | PCM.WC.HP ---
History of Present Illness Date of Service: 02/15/22 Chief Complaint: Left dorsal foot ulcer History of Wound: Patient fell on 01/14/22 and hit his left foot which caused a wound on the dorsal aspect of his foot. He was evaluated in the ED and had an x-ray which was negative for fracture, dislocation but did show arterial calcifications and dorsal surface soft tissue swelling. He went to see his PCP, Tania Berger CNP at [facility], who cultured the wound and started him on Keflex and Bactrim DS for MRSA positive culture on 02/03/22. His has had him soaking his foot in Epsome salt, then rinsing it with hydrogen peroxide and covering with a band aid. He continues to have some pain and swelling with difficulty wearing regular shoe. 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 Lua, GERD, colostomy, COPD, former smoker, CHF with preserved LVF, carotid stenosis bilaterally but not a candidate for surgery. Wound care will be Collagen hydrogel covered with adaptic and topped with gauze daily. May wash the ulcer with soap and water and dry well before the dressing change daily. Today he denies fever, chills, nausea or vomiting. He states his appetite is good. Progress of Wound: Left dorsal foot ulcer is dry and scabby. Once the scab was removed, the wound bed is pink. He has some swelling at the ulcer site. [facility] Medical History (Updated 02/17/22 @ 15:22 by Vaishali Carpenter LEGAL RECRUITER, LEGAL RECRUITER-C) Anemia Atherosclerotic heart disease of bois forte coronary artery without angina pectoris BPH (benign prostatic hyperplasia) COPD (chronic obstructive pulmonary disease) Diastolic CHF GI bleed GI bleed History of non-ST elevation myocardial infarction (NSTEMI) (01/21/11) HLD (hyperlipidemia) HTN (hypertension) PAD (peripheral artery disease) Tobacco dependence Home Medications ipratropium-albuterol 1 inh INHALATION Q4H PRN PRN 07/23/19 [History Last Taken 05/04/21] rosuvastatin 40 mg PO QHS 07/23/19 [History Last Taken 05/03/21] cholecalciferol (vitamin D3) 1,000 unit PO DAILY 10/01/20 [History Last Taken 05/03/21] sucralfate 1 gm PO BID 10/01/20 [History Last Taken 05/04/21] carvedilol 25 mg tablet 12.5 mg PO BID 10/29/20 [History Last Taken 05/03/21] pantoprazole 40 mg PO BID 10/30/20 [History Last Taken 05/04/21] tamsulosin 0.8 mg PO DAILY 04/03/21 [History Last Taken 05/04/21] budesonide 0.5 mg INHALATION BID 05/04/21 [History Last Taken 05/04/21] epoetin last-epbx [Retacrit] 20,000 unit SUBCUT UD 05/04/21 [History Last Taken 05/04/21] Allergy/AdvReac Type Severity Reaction Status Date / Time irbesartan [From Avapro] Allergy Severe Blisters Verified 05/04/21 14:24 pregabalin [From Lyrica] Allergy seizure-like Verified 05/04/21 14:24 activity zolpidem [From Ambien] AdvReac Severe made me Verified 05/04/21 14:24 go crazy, memory loss amoxicillin AdvReac Intermediate PASSES Verified 05/04/21 14:24 BLOOD IN STOOL gabapentin AdvReac Unknown emotional Verified 05/04/21 14:24 metronidazole [From Flagyl] AdvReac pt states Verified 05/04/21 14:24 he got palpitations and nose bleed. Family History Father CAD (coronary artery disease) Hypertension Kidney disease CVA (cerebral vascular accident) Other Cancer Surgical History history of surgically created arteriovenous fistula S/P CABG x 3 (01/26/11) s/p fistulogram (~09/28/18) Status post peripheral artery angioplasty with insertion of stent (~2010) Stented coronary artery Social History household members: spouse Smoking Status: Former smoker alcohol intake: current alcohol intake frequency: 3 or more drinks per day substance use type: does not use ROS Eyes Eyes: Reports none ENT HEENT: Reports none Cardiovascular Cardiovascular: Reports as per HPI Respiratory/Chest Respiratory/Chest: Reports as per HPI Gastrointestinal Gastrointestinal: Reports as per HPI Integumentary Integumentary: Reports skin ulcer Neurologic Neurologic: Reports as per HPI Psychiatric Psychiatric: Reports as per HPI Endocrine Endocrinology: Reports none Vital Signs Vital Signs Vital Signs: 02/15/22 13:13 Temperature 97.2 F L Temperature Source Temporal Pulse Rate 74 Respiratory Rate 18 Blood Pressure Source Monitor Blood Pressure Position Sitting Blood Pressure Location Right Arm Oxygen Delivery Method Nasal Cannula Oxygen Flow Rate (L/min) 3 Weight Weight: 143 lb Body Mass Index (BMI) 23.1 Physical Exam Const alert, oriented x3 and no apparent distress General Appearance: cooperative HEENT normocephalic Resp normal respiratory effort and normal air movement Effort and Inspection: able to speak in complete sentences Cardio regular rate and regular rhythm GI soft to palpation and non-tender Extremity normal capillary refill Peripheral Pulses: Yes dorsalis pedis pulses present bilateral 1+ Skin Wound Narrative: Left dorsal foot ulcer is dry and scabby. Once the scab was removed, the wound bed is pink. He has some swelling at the ulcer site. Neuro oriented x3 and moves all extremities Psych cooperative and affect normal Debridement Note Debridement Note Wound debrided: Dorsal foot ulcer Laterality: Left Type of Debridement: Excisional debridement Anesthesia Used: 4% Lidocaine Solution and 5% Lidocaine Gel Depth: Down to and including healthy tissue and in the subcutaneous layer Percentage of wound debrided: 100 Instrument Used: 3mm curette Tissue Removed: Non viable tissue and slough/scabbing Severity: Fat Layer Exposed Amount of bleeding with debridement: Mild Bleeding Controlled with: Pressure and Compression and gauze Patient tolerated procedure: Patient tolerated procedure well Post-Debridement Measurements and Additional Note: Post-Debridement Measurements/Treatment - Nurse 1 - General Ulcer Assessment Start: 02/15/22 13:13 Freq: Status: Active Protocol: JOSHUA Activity Type Activity Date Activity User E-Sign Co-Sign Detail Recorded Client Recorded Date Recorded By Document 02/15/22 13:13 [facility] [id number] 02/15/22 13:33 [facility] 02/15/22 13:13 - Today's Visit Information Type of service Initial Visit Arrival Mode Ambulatory, Walker Transfer Assistance None Accompanied by Patient Identification Verified (Name & Yes ) Patient Requires Transmission-Based No Precautions Height and Weight Height 5 ft 6 in Weight 143 lb Weight in Pounds 143.0 lbs Weight Measurement Method Stated by Patient Body Mass Index (BMI) 23.1 BMI Classification Normal BSA - Kareem 1.73 Vital Signs Temperature (97.8 F-99.1 F) 97.2 F L Temperature Source Temporal Pulse Rate (60-100) 74 Pulse Location Monitor Respiratory Rate (12-18) 18 Respiratory rate source Observation Oxygen Delivery Method Nasal Cannula O2 L/MIN 3 Source Monitor Position Sitting Blood Pressure Location Right Arm History Since Last Visit- (Skip if this is Patient's initial visit) Left Footwear Regular Shoe Right Footwear Regular Shoe Pain Scale: 0-10 Numeric Is Patient Pain Free? No L DORSAL FOOT WOUND -Description Sharp,Throbbing -Intensity 5 -Duration (hours) Acute -Pain Behavior Withdrawal from Touch,Facial Grimacing -Alleviating Factors/Interventions Turning/ Repositioning, Distraction, Will continue to monitor, Patient denies need for intervention, Emotional Support Lower Extremity Assessment/ Foot Assessment/ Toe Nail Assessment Right -Posterior Tibial Palpable No -Posterior Tibial Doppler Inaudible -Dorsalis Pedis Palpable No -Dorsalis Pedis Doppler Monophasic -Hair Growth on Legs No -Hair Growth on Toes No -Temperature of Extremity Warm -Other Deformity No -Prior Foot Ulcer No -Charcot Joint No -Prior Amputation No -Thick Yes -Discolored Yes -Deformed No -Improper Length & Hygeine No Left -Lower Extremity Comment (If N/A Above VERY TENDER TO ) TOUCH DORSAL FOOT -Posterior Tibial Palpable No -Posterior Tibial Doppler Monophasic -Dorsalis Pedis Palpable No -Dorsalis Pedis Doppler Monophasic -Extremity Color Red,Hemosiderin -Hair Growth on Legs No -Hair Growth on Toes No -Temperature of Extremity Warm -Other Deformity No -Prior Foot Ulcer No -Charcot Joint No -Prior Amputation No -Thick Yes -Discolored Yes -Deformed No -Improper Length & Hygeine Yes Neuropathy Assessment Feet - Top Side and Bottom <Entered> (a) Communication Assessment Preferred language South [place] Mis Manager Required No Able to Read Yes Able to Write Yes Communication Tools None Right Hearing Abillity Normal Left Hearing Abillity Normal Visual Assistive Devices Glasses Teaching Assessment Preferences Verbal,Written, Audio/Visual, Demonstration Barriers to Learning None Readiness To Learn Good Willingness to Engage in Self Management Med Activies Readiness to Engage in Self Management Med Activities Anxiety Level Calm Cooperation Cooperative Perception Coherent Interest in Health Problem Asks Questions Education Importance Acknowledges Need Does Patient Smoke tobacco or other No substances Smoking Status Former smoker Is Patient Diabetic No Functional Assessment Recent Decline in Ability to Perform Ambulation, Transferring Culture/Rastafari/Vice President Quality Improvement Cultural/Rastafari Needs that may affect No Treatment Plan Teaching: Wound Center *Welcome to the Wound Center -Person Taught Patient, Significant Other -Teaching Method Discussion -Response to teaching Verbalize understanding Welcome to the Wound Care Center [place] (a) 1 - - 2 - + 3 - + 4 - + 5 - + 6 - + WC - Nurse 1 - General Ulcer Measurement Start: 02/15/22 13:13 Freq: Status: Active Protocol: Activity Type Activity Date Activity User E-Sign Co-Sign Detail Recorded Client Recorded Date Recorded By Document 02/15/22 13:13 [facility] [id number] 02/15/22 13:33 [facility] 02/15/22 13:13 Wound Center Nurse 1 #1- L DORSAL FOOT POST FALL -Combined with other wound No -Current Size (cm) - Length 2 -Current Size (cm) - Width 1.5 -Current Size (cm) - Depth 0.3 -Total Square Cm 3.0 -Date of Last Picture (Recall this 02/15/22 field) -Photo Taken Yes -Epithelialization None Present -Tunneling No -Undermining/Tunneling No -Circular Undermining No -Exudate Amt Medium -Exudate Type Serosanguineous -Wound Margin Distinct, Outline Attached -Granulation Amt None Present (0 %) -Slough/Fibrin Yes -Necrosis Amt Large (67-100%) -Necrotic Tissue Type Adherent Slough -Texture (Eveline-wound Skin Appearance) Assessed, Scarring -Moisture (Eveline-wound Skin Appearance) Assessed,Dry/ Scaly -Color (Eveline-wound Skin Appearance) Assessed, Erythema -Temperature (Eveline-wound Skin No Abnormality Appearance) (Pt Warm) -Tenderness on Palpation (Eveline-wound Yes Skin Appearance) -Ulcer Cleansing Soap and Water -Foul Odor after Cleansing Yes, Due to Product Use -Anesthetic Used 5% Lidocaine Gel Lower Limb Edema Present Yes Right Calf (cm) 27.5 Right Ankle (cm) 24 Left Calf (cm) 29.2 Left Ankle (cm) 23.5 WC - Nurse 2 - General Ulcer CM Notes Start: 02/15/22 13:13 Freq: Status: Active Protocol: Activity Type Activity Date Activity User E-Sign Co-Sign Detail Recorded Client Recorded Date Recorded By Document 02/15/22 14:10 DENIZ [id number] 02/15/22 14:18 DENIZ 02/15/22 14:10 Wound Center Nurse 2 #1- L DORSAL FOOT POST FALL -Time 14:10 -Correct Patient Yes -Correct Side, Site, Position Yes -Correct Procedure Yes -Procedure Performed Yes -Type of Procedure Debridement -Clinical Debridement Subcutaneous -Tissue Removed Subcutaneous -Post Debridement (cm) - Length 2.0 -Post Debridement (cm) - Width 1.4 -Post Debridement (cm) - Depth 0.2 -Total Square (Post) (cm) 2.80 -Area of Debridement (cm) - Length 2.0 -Area of Debridement (cm) - Width 1.4 -Total Square (Area) (cm) 2.80 -Tunneling No -Undermining/Tunneling No -Circular Undermining No -Wound/Ulcer Outcome Not Healed -Ulcer Cleansing Rinsed/ Irrigated with Saline -Foul Odor after Cleansing No -Bioengineered Tissue No -Bleeding Controlled with Pressure -Treatment Response Procedure Tolerated Well -Offloading No -Debridement - Subq, 1st 20sq cm Yes Pain Scale: 0-10 Numeric Is Patient Pain Free? Yes Charges/Coding Visit Charges Office Visits / Consults: 47464 OV L3 Est (25 modifier) Procedures Integumentary 111xxx-113xx: 94399 Terra subq tissue 20 sq cm/< Assessment/Plan Assessment/Plan (1) Ulcer of left foot with fat layer exposed: CODE(S): L97.522 - Non-pressure chronic ulcer of other part of left foot with fat layer exposed (2) PAD (peripheral artery disease): CODE(S): I73.9 - Peripheral vascular disease, unspecified (3) CAD (coronary artery disease): CODE(S): I25.10 - Atherosclerotic heart disease of bois forte coronary artery without angina pectoris (4) ESRD (end stage renal disease) on dialysis: CODE(S): N18.6 - End stage renal disease; Z99.2 - Dependence on renal dialysis (5) Former smoker: CODE(S): Z87.891 - Personal history of nicotine dependence (6) Alcohol dependence, daily use: CODE(S): F10.20 - Alcohol dependence, uncomplicated (7) Stented coronary artery: CODE(S): Z95.5 - Presence of coronary angioplasty implant and graft (8) Status post peripheral artery angioplasty with insertion of stent: CODE(S): Z95.820 - Peripheral vascular angioplasty status with implants and grafts (9) S/P CABG x 3: CODE(S): Z95.1 - Presence of aortocoronary bypass graft PLAN: Patient was evaluated at the wound healing center today. A subcutaneous debridement was performed and the patient tolerated it well. Wound care will be Collagen hydrogel covered with adaptic and topped with gauze daily. He is to wash his foot with soap and water daily before his dressing is changed. He may shower and wash his foot in the shower. For compression we will place a single layer tubigrip. Will order a post-op shoe for him to wear due to the swelling in his foot and the pain he is experiencing walking with a shoe on. We will order venous and arterial studies. He has a history of vascular and coronary disease and is on dialysis every other day. Encouraged a high protein diet but he needs to follow his renal diet also. Follow up one week at the wound center. Call or go to the ED if develop any issues before next week.
== END 2022-03-16 23:59 | disposition home or self-care (01) ==
LOC: WC 12:43
PROVIDERS: PCP Nurse Practitioner Family; Visit Provider Nurse Practitioner Family
DX: L97.522 Non-pressure chronic ulcer of other part of left foot with fat layer exposed (principal); I50.33 Acute on chronic diastolic (congestive) heart failure; N18.6 End stage renal disease; J44.9 Chronic obstructive pulmonary disease, unspecified; I73.9 Peripheral vascular disease, unspecified; I25.10 Atherosclerotic heart disease of native coronary artery without angina pectoris; Z99.2 Dependence on renal dialysis; N40.0 Benign prostatic hyperplasia without lower urinary tract symptoms; K21.9 Gastro-esophageal reflux disease without esophagitis; F10.20 Alcohol dependence, uncomplicated; Z93.3 Colostomy status; Z87.891 Personal history of nicotine dependence; Z95.1 Presence of aortocoronary bypass graft; Z95.5 Presence of coronary angioplasty implant and graft; Z95.820 Peripheral vascular angioplasty status with implants and grafts
CPT/HCPCS: 11042; 99213; G0463

== ENCOUNTER → 2022-05-27 | Outpatient (CLI) | payer MEDICARE, SELFPAY ==
[2022-05-27 09:04] LABS: Absolute Lymphocyte Count 0.37 X10^3/uL (0.83-4.51); Basophil# 0.02 X10^3/uL; Basophil% 0.3 % (0-1); Eosinophils% 1.6 % (0-5); Hematocrit 27.1 % (40-54); Hemoglobin 8.5 g/dL (13.0-16.5); Lymphocyte # 0.37 X10^3/ul (0.83-4.51); Mean Corp Hgb Conc 31.4 g/dL (32-36); Mean Corpuscular Hgb 34.6 pg (27.0-32.0); Mean Corpuscular Volume 110.2 fL (80-94); Mean Platelet Vol. 10.4 fl (6.2-12.0); Monocyte# 0.57 X10^3/uL; Monocyte% 9.3 % (0-10); NRBC Flagged by Analyzer 0 % (0-5); Neutrophil # 5.03 X10^3/uL (2.7-7.7); Neutrophil % 81.8 % (47-70); POSITIVE DIFFERENTIAL YES; POSITIVE MORPHOLOGY YES; Platelet Count 140 K/mm3 (150-450); RBC Distribution Width CV 17.8 % (11.6-14.6); RBC Distribution Width SD 72.4 fl (35.1-43.9); Red Blood Count 2.46 M/mm3 (4.6-6.2); White Blood Count 6.2 K/mm3 (4.4-11.0)
[2022-05-27 09:05] LABS: Differential Indicated SCAN CRITERIA MET
[2022-05-27 09:27] LABS: Anion Gap 6 (5-15); BUN 37 mg/dL (7-18); BUN/Creat Ratio 7.2 RATIO (10-20); Calcium,Total 8.1 mg/dL (8.5-10.1); Chloride 87 mmol/L (98-107); Cholesterol 76 mg/dL (200); Creatinine, Serum 5.14 mg/dL (0.70-1.30); EST Glomerular Filtration Rate 12 mL/min (>60); Est Glom Filt Rate - Afr Amer 14 mL/min (>60); Glucose 100 mg/dL (74-106); High Density Lipoprotein 46 mg/dL; PSA,Total - Annual Screen 0.19 ng/mL (0.00-4.00); Potassium 3.6 mmol/L (3.5-5.1); Sodium Level 125 mmol/L (136-145); Triglycerides 61 mg/dL; Very Low Density Lipoprotein 12 mg/dL (5-40)
[2022-05-27 09:29] LABS: Anisocytosis 1+
== END | disposition home or self-care (01) ==
LOC: PAVLAB 08:43
PROVIDERS: Surgery; PCP Nurse Practitioner Family; Visit Provider Nurse Practitioner Family
DX: E78.00 Pure hypercholesterolemia, unspecified (principal); Z12.5 Encounter for screening for malignant neoplasm of prostate
CPT/HCPCS: 36415; 80048; 80061; 84153; 85025; G0103

== ENCOUNTER 2022-05-28 11:18 | Day surgery (SDC) | payer MEDICARE, SELFPAY ==
[2022-05-28] VITALS (8 sets, daily range): BP systolic 105–133; BP diastolic 44–50; PULSE 50–64; RESP 15–16; TEMP 36.2; O2SAT 54–100; BMI 23.4
--- NOTE | 2022-05-28 | GASB_PTH ---
PATIENT: ANGELINA FORREST Jr. LOC: EN U#:[id number] AGE/SX: 71/M ROOM: RE05/28/[address]: Dr. 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 pylori and pathology MICROSCOPIC DIAGNOSIS Gastric antrum, biopsy: Mild gastritis. See microscopic description and comment. SJ:dalia 05/31/22 COMMENT The results of immunohistochemistry for Helicobacter pylori will be reported separately ([id number]). MICROSCOPIC DESCRIPTION Slides are reviewed. The specimen shows fragments of gastric mucosa with chronic inflammatory cell infiltrates in the lamina propria consisting of lymphocytes and plasma cells, consistent with mild chronic gastritis. GROSS DESCRIPTION Received in fixative is one container labeled with the patient's name and designated biopsy gastric antrum. The specimen consists of one irregular fragment of light ramires soft tissue that measures 0.3 x 0.3 x 0.1 cm. The specimen is totally submitted in one cassette. / DALIA:patrick 05/28/2022 TC:3 CPT: 48038
--- NOTE | 2022-05-28 | GASB_PTH ---
PATIENT: ANGELINA FORREST Jr. LOC: EN U#:[id number] AGE/SX: 71/M ROOM: RE05/28/[address]: Dr. 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 pylori and pathology MICROSCOPIC DIAGNOSIS Gastric antrum, biopsy: Mild gastritis. See microscopic description and comment. COMMENT The results of immunohistochemistry for Helicobacter pylori will be reported separately ([id number]). MICROSCOPIC DESCRIPTION Slides are reviewed. The specimen shows fragments of gastric mucosa with chronic inflammatory cell infiltrates in the lamina propria consisting of lymphocytes and plasma cells, consistent with mild chronic gastritis. GROSS DESCRIPTION Received in fixative is one container labeled with the patient's name and designated biopsy gastric antrum. The specimen consists of one irregular fragment of light ramires soft tissue that measures 0.3 x 0.3 x 0.1 cm. The specimen is totally submitted in one cassette. / SJ:rg 05/28/2022 TC:3 CPT: 95685
[2022-05-28] MEDS: Lactated Ringers 1,000 ML 15 ML IV (11:55)
--- NOTE | 2022-05-28 12:10 | HP.PCM_ITS ---
History and Physical Date of Admission: 05/28/22 Visit Reasons:?PEG Chief Complaint: PEG Tube Drugless Physician Required: No Is patient in pain?: No Allergies irbesartan [From Avapro] Allergy (Severe, Verified 05/27/22 08:08) Blisterspregabalin [From Lyrica] Allergy (Verified 05/27/22 08:08) seizure-like activityzolpidem [From Ambien] Adverse Reaction (Severe, Verified 05/27/22 08:08) made me go crazy, memory lossamoxicillin Adverse Reaction (Intermediate, Verified 05/27/22 08:08) PASSES BLOOD IN STOOLgabapentin Adverse Reaction (Unknown, Verified 05/27/22 08:08) emotionalmetronidazole [From Flagyl] Adverse Reaction (Verified 05/27/22 08:08) pt states he got palpitations and nose bleed. Medications ipratropium 0.5 mg-albuterol 3 mg (2.5 mg base)/3 mL nebulization soln 1 inh inhalation Q4H PRN PRN Sob &/Or Wheezing 07/23/19 [History Confirmed 05/27/22] rosuvastatin 40 mg tablet 40 mg PO QHS cholesterol 07/23/19 [History Confirmed 05/27/22] cholecalciferol (vitamin D3) 50 mcg (2,000 unit) capsule 1,000 unit PO DAILY SUPPLEMENT 10/01/20 [History Confirmed 05/27/22] sucralfate 1 gram tablet 1 g PO BID STOMACH 10/01/20 [History Confirmed 05/27/22] carvedilol 25 mg tablet (Coreg) 12.5 mg PO BID BP 10/29/20 [History Confirmed 05/27/22] pantoprazole 40 mg tablet,delayed release 40 mg PO BID stomach 10/30/20 [History Confirmed 05/27/22] tamsulosin 0.4 mg capsule 0.8 mg PO DAILY prostate 04/03/21 [History Confirmed 05/27/22] budesonide 0.5 mg/2 mL suspension for nebulization 0.5 mg inhalation BID SOB 05/04/21 [History Confirmed 05/27/22] epoetin last-epbx 20,000 unit/mL injection solution (Retacrit) 20,000 unit subcut UD 05/04/21 [History Confirmed 05/27/22] acetaminophen 325 mg tablet (Tylenol) 325 mg PO ONCE PRN 05/13/22 [History Confirmed 05/27/22] calcitriol 0.25 mcg capsule 0.25 mcg PO DAILY 05/13/22 [History Confirmed 05/27/22] iron sucrose 100 mg iron/5 mL intravenous solution (Venofer) 100 mg .Route 05/13/22 [History Confirmed 05/27/22] lidocaine HCl 20 mg/mL (2 %) injection solution 10 ml Infiltration ONCE 05/13/22 [History Confirmed 05/27/22] nystatin 100,000 unit/mL oral suspension 1 ml PO DAILY 05/13/22 [History Confirmed 05/27/22] oxycodone 5 mg capsule 5 mg PO Q6H PRN 05/13/22 [History Confirmed 05/27/22] vitamin B complex-vitamin C-folic acid 0.8 mg tablet 1 tab PO DAILY 05/13/22 [History Confirmed 05/27/22] albuterol sulfate 0.63 mg/3 mL solution for nebulization 0.63 mg inhalation Q6H 05/17/22 [History Confirmed 05/27/22] hydroxyzine HCl 25 mg tablet 25 mg PO BID PRN 05/18/22 [History Confirmed 05/27/22] PFSH Medical History? 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 History of esophagogastroduodenoscopy (EGD) history of surgically created arteriovenous fistula S/P CABG x 3 (01/26/11) s/p fistulogram (~09/28/18) Status post peripheral artery angioplasty with insertion of stent (~2010) Stented coronary artery Family History? Father CAD (coronary artery disease) Hypertension Kidney disease CVA (cerebral vascular accident)Other Cancer Social History? household members:? spouse Smoking Status:? Former smoker alcohol intake:? current alcohol intake frequency: 3 or more drinks per day substance use type:? does not use HPI HPI HPI: ANGELINA FORREST, is a 71 M who presents to the office today for surgical consultation regarding a PEG tube placement.? 71-year-old gentleman.? He is being cared for by Dr. 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 The patient is known to me from interventions to assist him with hemodialysis.? He has multiple additional comorbidities including severe pulmonary hypertension and bilateral carotid stenosis and coronary artery disease and congestive heart failure and chronic bilateral pleural effusions as well as COPD on chronic oxygen therapy.? Palliative oral cancer treatment is being offered.? Anticipate future palliative hospice consultation.? The patient performs home hemodialysis. It is of note that the patient apparently has a draining fistula in the left upper quadrant.? Had recurrent GI bleeds.? He has abdominal ascites and has had intermittent paracentesis. ?The patient's history is notable that December 06, 2018 he was hospitalized with pneumatosis of the right colon and ascending colon.? Per Dr. Andrew Henderson he underwent a right colectomy and proximal transverse colectomy from ischemic bowel.? He had a end ileostomy created and a transverse colon mucous fistula. The patient states that he is having significant troubles chewing food.? He notes that he is significantly deteriorating. ROS General General: Yes weight change and fatigue; No appetite, colon cancer, breast cancer or weakness HEENT HEENT: Yes difficulty swallowing and eye surgery; No eye injury, swollen glands or hoarseness Endo Endocrine: No thyroid disease, diabetes mellitus, thyroid cancer, Hair loss, heat intolerance or cold intolerance Skin Skin: No rash or changing moles Breast Breast: No left breast lump, right breast lump, nipple discharge, breast pain, abnormal mammogram, abnormal US or breast enlargement Musc Musculoskeletal: No back problems, arthritis, rheumatoid arthritis, gout or joint pain Cardio Cardiovascular: Yes heart disease, high blood pressure, heart attack and heart stent; No murmur, pacemaker, atrial fibrillation, palpitations, shortness of breat with exertion or chest pain Psych Psychiatric: Yes depression and anxiety; No hearing voices Resp Respiratory: Yes shortness of breath, Yes sleep apnea, No cough, Yes COPD, No asthma, No emphysema and No wheezing Gastro Gastrointestinal: No abdominal pain, No nausea or vomiting, No diarrhea, No constipation, No blood in stool, No acid reflux, No hemorrhoids, No ulcers, No gallbladder problem and No black,tarry stools Fernando Hematologic: No blood thinners, No blood disorders, No bleeding, No anemia and No blood clots Neuro Neurologic: No system reviewed and no additional complaints, except as documented, No as per HPI, No abnormal gait, No abnormal hearing, No abnormal movements, No abnormal speech, No behavioral changes, No burning sensations, No confusion, No convulsions, No disequilibrium, No dizziness, No localized weakness, No frequent falls, No headache(s), No lack of coordination, No loss of vision, No memory loss, No numbness, No other visual disturbances, No radicular pain, No restless legs, No sensory deficit, No syncope, No tingling, No tremor(s), No weakness and No other (stroke/TIA) Exam Const General: cooperative Other: Chronically ill appearance, wheelchair, fatigued Eyes General: appearance normal, both eyes and all related structures Neck Other: Kyphosis noted Chest Other: Increased AP diameter Resp Other: Diminished breath sounds left base.? Coarse right base.? No wheezing Cardio Rate: regular rate Rhythm: regular rhythm GI Other: Soft, midline incision extending from the xiphoid down to the umbilicus, ventral incisional hernia supraumbilically, right lower quadrant end ileostomy, left upper quadrant and transverse colon mucous fistula, abdominal wall is very slender, I am not demonstrating a fluid wave to suggest ascites Musc Other: Right posterior neck 5 to 6 cm diameter subcutaneous mass consistent with lipoma Neuro General: patient alert and patient oriented x3 Extrem General: no calf tenderness Psych Appearance: grossly normal Assessment and Plan Assessment and Plan (1) Floor of mouth squamous cell carcinoma: ?Status:?Acute ?Plan: 71-year-old gentleman.? Multiple medical comorbidities.? The patient appears to be significantly deteriorated.? He looks to be in discomfort from his mouth and has some troubles talking.? Clearly appears that he has some trouble swallowing as well I have reviewed a previous CT imaging on him after he had the end ileostomy had transverse colon mucous fistula.? The stomach appears to be immediately adjacent to the abdominal wall closer to the midline.? I do not see any small bowel between the 2.? His abdominal wall is admittedly quite thin in that area.? This would however provide for potential safer access for percutaneous endoscopic gastrostomy tube. I described the technique, benefit, risk, alternatives.? No guarantees of success.? The patient's had an opportunity to ask and have questions answered.? He has radiation therapy already starting on May 31, 2022.? We will try to expedite his management and care. Copy: Dr. Bryce Berger, ARMEN-C Demian Lua M.D., F.A.C.S. I have re-examined the patient. There are no clinical changes since date of exam.
[2022-05-28] MEDS: Clindamycin 900 MG/50 ML BAG 75 MG IV (12:26)
--- NOTE | 2022-05-28 12:30 | IMM_PTH ---
PATIENT: ANGELINA FORREST Jr. LOC: EN U#:[id number] AGE/SX: 71/M ROOM: RE05/28/[address]: Dr. Demian Lua MD : 1950 BED: DIS: 05/28/2022 SPEC #: [id number] RECD: 05/28/22 14:02 STATUS: NILAM RERafat #: [id number] SHANIA: 05/28/22 12:[address]: Demian Lua DEPT: IMMUNOHISTOCHEMISTRY RECD BY: Lucy Acosta ENTERED: 05/28/22 14:03 SP TYPE: IMMUNO OTHR DR: Tania Berger, PREPAROLE COUNSELING AIDE-C Tissues: Stomach, NOS Procedures: H Pylori (initial) PHYSICIAN & INSTITUTION [place] [id number] SPECIMEN INFORMATION: Tissue Source: Gastric antrum Clinical Info: Floor of mouth squamous cell carcinoma Specimen Number: [id number] CPT code: 34244 METHODOLOGY: Deparaffinized sections of prefer/formalin-fixed tissue or PAP/DQ stained slides are incubated with monoclonal/polyclonal antibodies/oligonucleotide probes. Localization is made via biotin free immunoperoxidase method. Appropriate controls are performed and reacted as expected. Results on target cell population are indicated in the following table: RESULTS: ANTIBODY / CLONE RESULT H Pylori (polyclonal) negative These tests were developed and their performance characteristics determined by [facility]. They may not have been cleared or approved by the U.S. Food and Drug Administration. The FDA has determined that such clearance or approval is not necessary. The above immunohistochemical/dualISH markers are ordered and reviewed by the Pathologist. INTERPRETATION: Gastric antrum, biopsy: Negative for Helicobacter pylori organisms. SJ:hesham 05/31/22
--- NOTE | 2022-05-28 12:55 | OP.EGD_ITS ---
Patient Name: Klevin Gimenez Procedure Date: 05/28/2022 12:12 PM Date of : 1950 Age: 71 Procedure: Upper GI endoscopy Indications: Tumor of the GI tract Providers: Demian Lua MD Referring MD: Tania Berger Medicines: See the Anesthesia note for documentation of the administered medications Complications: No immediate complications. Procedure: Pre-Anesthesia Assessment: - Prior to the procedure, a History and Physical was performed, and patient medications and allergies were reviewed. The patient's tolerance of previous anesthesia was also reviewed. The risks and benefits of the procedure and the sedation options and risks were discussed with the patient. All questions were answered, and informed consent was obtained. Prior Anticoagulants: The patient has taken no previous anticoagulant or antiplatelet agents. ASA Grade Assessment: II - A patient with mild systemic disease. After reviewing the risks and benefits, the patient was deemed in satisfactory condition to undergo the procedure. - Prior to the procedure, a History and Physical was performed, and patient medications and allergies were reviewed. The patient's tolerance of previous anesthesia was also reviewed. The risks and benefits of the procedure and the sedation options and risks were discussed with the patient. All questions were answered, and informed consent was obtained. Prior Anticoagulants: The patient has taken no previous anticoagulant or antiplatelet agents. ASA Grade Assessment: III - A patient with severe systemic disease. After reviewing the risks and benefits, the patient was deemed in satisfactory condition to undergo the procedure. After obtaining informed consent, the endoscope was passed under direct vision. Throughout the procedure, the patient's blood pressure, pulse, and oxygen saturations were monitored continuously. The Endoscope was introduced through the mouth, and advanced to the second part of duodenum. The upper GI endoscopy was accomplished without difficulty. The patient tolerated the procedure well. Scope In: 12:32:07 PM Scope Out: 12:44:15 PM Total Procedure Duration Time 0 hours 12 minutes 8 seconds Findings: A small hiatal hernia was present. The Z-line was regular and was found 42 cm from the incisors. Patchy mildly erythematous mucosa without bleeding was found in the gastric antrum. Biopsies were taken with a cold forceps for histology. The examined duodenum was normal. Placement of an endoscopically removable PEG with no T-fasteners was successfully completed. The external bumper was at the 3.0 cm marking on the tube. Estimated blood loss was minimal. Impression: - Small hiatal hernia. - Z-line regular, 42 cm from the incisors. - Erythematous mucosa in the antrum. Biopsied. - Normal examined duodenum. - An endoscopically removable PEG placement was successfully completed. Recommendation: - Discharge patient to home. - Resume previous diet. - Continue present medications. - Telephone my office for pathology results in 1 week. Procedure Code(s): --- Professional --- 02801, Esophagogastroduodenoscopy, flexible, transoral; with directed placement of percutaneous gastrostomy tube 63862, Esophagogastroduodenoscopy, flexible, transoral; with biopsy, single or multiple Diagnosis Code(s): --- Professional --- K44.9, Diaphragmatic hernia without obstruction or gangrene K31.89, Other diseases of stomach and duodenum D49.0, Neoplasm of unspecified behavior of digestive system CPT copyright 2017 [employer]. All rights reserved. The codes documented in this report are preliminary and upon home service technician review may be revised to meet current compliance requirements. Demian Lua MD 05/28/2022 12:55:38 PM This report has been signed electronically. Number of Addenda: 0 Note Initiated On: 05/28/2022 12:12 PM
--- NOTE | 2022-05-28 12:56 | OP.CCLET_ITS ---
05/28/2022 Bryce Ni [address] [place] [address] Re : Upper GI endoscopy procedure for Kelvin Solizdarrius Dear Dr. Ni This procedure was performed on Saturday, May 28, 2022. My impressions and recommendations are as follows: Impressions : - Small hiatal hernia. - Z-line regular, 42 cm from the incisors. - Erythematous mucosa in the antrum. Biopsied. - Normal examined duodenum. - An endoscopically removable PEG placement was successfully completed. Recommendations : - Discharge patient to home. - Resume previous diet. - Continue present medications. - Telephone my office for pathology results in 1 week. My findings are described in the full procedure note, which is enclosed. If I can be of further assistance, please feel free to contact me at Doctor phone number(s): Work: . Sincerely, Demian Lua MD 05/28/2022 12:55:38 PM This report has been signed electronically.
== END 2022-05-28 15:00 | disposition home or self-care (01) ==
LOC: EN 11:19 → AC 11:20
PROVIDERS: PCP Nurse Practitioner Family; Referring Provider Nurse Practitioner Family; Visit Provider Surgery
PROC: 0DJ08ZZ Inspection of Upper Intestinal Tract, Via Natural or Artificial Opening Endoscopic (ICD-10-PCS; CPT 43235; principal; 2022-05-28 12:25)
DX: K29.70 Gastritis, unspecified, without bleeding (principal); I13.2 Hypertensive heart and chronic kidney disease with heart failure and with stage 5 chronic kidney disease, or end stage renal disease; J44.9 Chronic obstructive pulmonary disease, unspecified; I50.30 Unspecified diastolic (congestive) heart failure; C04.9 Malignant neoplasm of floor of mouth, unspecified; N18.6 End stage renal disease; I73.9 Peripheral vascular disease, unspecified; I48.0 Paroxysmal atrial fibrillation; I25.10 Atherosclerotic heart disease of native coronary artery without angina pectoris; N40.0 Benign prostatic hyperplasia without lower urinary tract symptoms; Z86.73 Personal history of transient ischemic attack (TIA), and cerebral infarction without residual deficits; Z87.19 Personal history of other diseases of the digestive system; I25.2 Old myocardial infarction; E78.5 Hyperlipidemia, unspecified; Z95.1 Presence of aortocoronary bypass graft; Z79.899 Other long term (current) drug therapy; Z79.01 Long term (current) use of anticoagulants; D64.9 Anemia, unspecified; Z87.891 Personal history of nicotine dependence; G47.33 Obstructive sleep apnea (adult) (pediatric); F41.9 Anxiety disorder, unspecified; F32.A Depression, unspecified; K21.9 Gastro-esophageal reflux disease without esophagitis; Z90.49 Acquired absence of other specified parts of digestive tract; K44.9 Diaphragmatic hernia without obstruction or gangrene
CPT/HCPCS: 43239; 43246; 88305; 88342; J7120; J2405

== ENCOUNTER → 2022-07-29 | Outpatient (CLI) | payer MEDICARE, SELFPAY ==
[2022-07-29] VITALS (7 sets, daily range): BP systolic 138–157; BP diastolic 55–68; PULSE 88–95; RESP 18–22; TEMP 35.7–36; O2SAT 98–100
== END | disposition home or self-care (01) ==
LOC: MEDOUTP 08:51
PROVIDERS: PCP Nurse Practitioner Family; Referring Provider Nurse Practitioner Adult Health; Visit Provider Nurse Practitioner Adult Health
DX: D64.9 Anemia, unspecified (principal)
CPT/HCPCS: 36415; 36430; 86850; 86900; 86901; 86920; 86922; J7040; P9016; A4216

== ENCOUNTER 2022-08-08 13:58 | Observation (INO) | payer MEDICARE, SELFPAY ==
[2022-08-08] VITALS (21 sets, daily range): BP systolic 97–165; BP diastolic 18–88; PULSE 76–101; RESP 12–24; TEMP 36.3–37.2; O2SAT 93–100; BMI 22.8; BMI 22.1
--- NOTE | 2022-08-08 14:30 | ED.VIS.GI ---
HPI HPI - GI History of Present Illness Chief Complaint: GI Bleed Detail of Chief Complaint: Bleeding from his mouth Informant: patient and spouse/S.O. Abdominal Pain/Flank Pain Onset: Today and Hours Context: Gradual Onset Timing: Continuous Nausea/Vomiting/Emesis GI Symptom: Negative for Nausea or Vomiting Associated Symptoms Associated Symptoms: Negative for Dysuria or Frequency Narrative Narrative: 71-year-old male history of end-stage renal disease get home dialysis, CAD, CABG, CHF, A. fib currently on no blood thinners. And peripheral vascular disease. He is chronically on 3 L of O2 at home. 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 And today started having bleeding from his mouth and was coughing and spitting out the clots. No prior history. Reportedly not on any blood thinners. Denies any shortness of breath. Prior similar symptoms: No Recent Illness/Hospitalization: No PFSH PFSH Medical History Alcohol use Anemia Anxiety Atherosclerotic heart disease of [place] coronary artery without angina pectoris Back pain BiPAP (biphasic positive airway pressure) dependence BPH (benign prostatic hyperplasia) Cancer Cardiology follow-up encounter Chest pain COPD (chronic obstructive pulmonary disease) Depression Dialysis patient Diastolic CHF Dietary restriction Difficulty chewing Difficulty swallowing ESRD (end stage renal disease) Gastric reflux GI bleed GI bleed History of CHF (congestive heart failure) History of echocardiogram History of edema History of hiatal hernia History of non-ST elevation myocardial infarction (NSTEMI) (01/21/11) History of pain when walking History of stress test HLD (hyperlipidemia) HTN (hypertension) Hx of pleural effusion Loss of hearing Non-smoker On home oxygen therapy Open wound PAD (peripheral artery disease) PAF (paroxysmal atrial fibrillation) Poor dental hygiene PVD (peripheral vascular disease) Shortness of breath on exertion TIA (transient ischemic attack) Tobacco dependence Walker as ambulation aid Wears glasses Home Medications ipratropium 0.5 mg-albuterol 3 mg (2.5 mg base)/3 mL nebulization soln 1 inh inhalation Q4H PRN PRN Sob &/Or Wheezing 07/23/19 [History Last Taken 05/04/21] rosuvastatin 40 mg tablet 40 mg PO QHS cholesterol 07/23/19 [History Last Taken 05/03/21] cholecalciferol (vitamin D3) 50 mcg (2,000 unit) capsule 1,000 unit PO DAILY SUPPLEMENT 10/01/20 [History Last Taken 05/03/21] sucralfate 1 gram tablet 1 g PO BID STOMACH 10/01/20 [History Last Taken 05/04/21] carvedilol 25 mg tablet (Coreg) 12.5 mg PO BID BP 10/29/20 [History Last Taken 05/28/22] pantoprazole 40 mg tablet,delayed release 40 mg PO BID stomach 10/30/20 [History Last Taken 05/28/22] budesonide 0.5 mg/2 mL suspension for nebulization 0.5 mg inhalation BID SOB 05/04/21 [History Last Taken 05/04/21] epoetin last-epbx 20,000 unit/mL injection solution (Retacrit) 20,000 unit subcut MOWEFR 05/04/21 [History Last Taken 05/04/21] iron sucrose 100 mg iron/5 mL intravenous solution (Venofer) 100 mg IV MOWEFR 05/13/22 [History Last Taken Unknown] albuterol sulfate 0.63 mg/3 mL solution for nebulization 0.63 mg inhalation Q6H PRN SOB 05/17/22 [History Last Taken Unknown] Allergy/AdvReac Type Severity Reaction Status Date / Time irbesartan [From Avapro] Allergy Severe Blisters Verified 08/08/22 13:59 pregabalin [From Lyrica] Allergy seizure-like Verified 08/08/22 13:59 activity zolpidem [From Ambien] AdvReac Severe made me Verified 08/08/22 13:59 go crazy, memory loss amoxicillin AdvReac Intermediate PASSES Verified 08/08/22 13:59 BLOOD IN STOOL gabapentin AdvReac Unknown emotional Verified 08/08/22 13:59 metronidazole [From Flagyl] AdvReac pt states Verified 08/08/22 13:59 he got palpitations and nose bleed. Family History Father CAD (coronary artery disease) Hypertension Kidney disease CVA (cerebral vascular accident) Other Cancer Surgical History History of cardiac catheterization History of esophagogastroduodenoscopy (EGD) History of partial colectomy history of surgically created arteriovenous fistula Hx of bilateral cataract extraction S/P CABG x 3 (01/26/11) s/p fistulogram (~09/28/18) Status post peripheral artery angioplasty with insertion of stent (~2010) Stented coronary artery Social History household members: spouse Smoking Status: Current some day smoker tobacco type: cigarettes alcohol intake: current alcohol intake frequency: 3 or more drinks per day substance use type: does not use ROS ROS ED ROS Narrative Denies recent illness. Review of Systems ROS Unobtainable: Denies due to encephalopathy Constitutional Constitutional ED: Denies chills or fever(s) ENT ENT ED: Denies ear pain Respiratory/Chest Respiratory/Chest: Denies cough Genitourinary Genitourinary ED: Denies dysuria or hematuria Integumentary Denies abscess Neurologic Neurologic: Denies headache(s) Psychiatric Psychiatric: Denies anxiety Endocrine Endocrinology: Denies polydipsia Hematologic/Lymphatic Hematologic/Lymphatic: Denies easy bleeding Allergic/Immunologic Allergic/Immunologic ED: Denies mouth swelling or tongue swelling EXAM Physical Exam Narrative Exam Narrative: 71-year-old male vital signs stable afebrile. Pulse ox high percent on 4 L nasal cannula O2 80s on 3 L at home. No hypoxia. H EENT exam poor dentition. He has dark blood in his mouth. Appears to be bleeding somewhere in his mouth I cannot find a source at this time. Neck nontender. Lungs are clear. Heart regular rhythm rate about 85. Chest wall nontender. Abdomen soft nontender. Moving all 4 extremities. Neurologically is awake and alert. Const Vital Signs: 08/08/22 14:00 08/08/22 15:32 08/08/22 15:53 Temperature 97.3 F L Temperature Source Temporal Pulse Rate 85 87 87 Respiratory Rate 18 22 H 24 H Respiratory Pattern Tachypnea Blood Pressure 165/71 H 147/51 H Blood Pressure Mean 102 83 Pulse Ox 100 100 Oxygen Delivery Method Nasal Cannula Nasal Cannula Oxygen Flow Rate (L/min) 4 4 Positive well nourished and well developed; Negative for obese, cachectic, contractures or unkempt General Appearance ED: well developed and NAD; Negative for unkempt, cachectic, contractures or pallor Nutritional Appearance: Negative for cachectic or obese HEENT Reports moist mucous membranes HEENT Narrative: Mouth with blood and clots. normocephalic and atraumatic; Negative for trauma or tenderness Eyes PERRL and EOMs intact bilaterally General Eye ED: Negative for pale conjunctiva or scleral icterus Neck no lymphadenopathy, supple and no JVD General: Negative for tenderness Carotids: Negative for other Lymph Lymphatic: Negative for other Resp normal respiratory effort and clear to auscultation bilaterally Effort and Inspection: Negative for respiratory distress Auscultation: Negative for rales, rhonchi or wheezes Cardio regular rate, regular rhythm, S1 normal heart sound, S2 normal heart sound and no murmurs Rate: Negative for bradycardia Rhythm: Negative for abnormal rhythm GI non-tender, non-distended and no masses Inspection: Negative for abdominal distention Auscultation: normoactive bowel sounds Palpation: soft; Negative for tender, guarding or rigid Back/Spine no CVA tenderness General Back: Negative for CVA tenderness Cervical Spine: Negative for cervical spine tenderness Thoracic Spine / Upper Back: Negative for thoracic spinal tenderness Lumbar Spine / Lower Back: Negative for lumbar spinal tenderness Coccyx: Negative for other Extremity full ROM General Extremety ED: Negative for edema or tenderness General Extremity: Negative for edema Neuro Sensorium / Orientation: alert, oriented to person, oriented to place and oriented to time Motor Exam: strength 5/5 throughout Psych mental status grossly normal and thought process normal Appearance: Negative for unkempt Attitude: No agitated Mood & Affect: anxious; Negative for depressed or tearful Skin no wounds General Skin Exam: Negative for jaundice or pallor Lesions: no lesions Rashes: no rashes Trauma: Negative for abrasion Nails: Negative for discolored MDM MDM MDM Narrative Medical decision making narrative: 71-year-old male with a oral cancer. Appears to be bleeding from his mouth. Screening labs will be obtained. He will be typed and screened. Patient has bleeding from the floor of his mouth. His tongue is basically immobile and stuck to the floor of his mouth due to the radiation and/or cancer. My concern is this may have eroded into or be bleeding from a branch of the lingular artery. I have spoken to ENT Dr. Renny Fulton he will be in evaluate the patient and his plan to most likely take him to the operating room. We tried direct pressure and we tried let and Surgicel and all of been unsuccessful [place] currently controlled the bleeding. Lab Data Attestation: I reviewed the patient's lab results. Lab results narrative: PT/INR and PTT came back at 16, 1.3 and 38. CBC shows a white count 8. H&H of 8.0 and 20.7 which is actually his gentleman's baseline. He has had hemoglobins around 5 before. Platelets 146,000. Labs: Laboratory Results - last 24 hr 08/08/22 08/08/22 08/08/22 14:45 15:13 15:13 WBC 8.7 RBC 2.45 L Hgb 8.0 L Hct 28.7 L MCV 117.1 H MCH 32.7 H MCHC 27.9 L RDW Std Deviation 109.7 H RDW Coeff of Eleni 25.9 H Plt Count 146 L MPV 11.3 Immature Gran % (Auto) 0.800 Neut % (Auto) 83.1 H Lymph % (Auto) 10.4 L [place] % (Auto) 4.8 Eos % (Auto) 0.7 Baso % (Auto) 0.2 Absolute Neuts (auto) 7.2 Absolute Lymphs (auto) 0.90 Nucleated RBC % 0 Platelet Estimate ADEQUATE RBC Morphology N CHROM Anisocytosis 2+ Macrocytosis 2+ PT 16.0 H INR 1.3 APTT 38.5 H Sodium 140 Potassium 4.9 Chloride 102 Carbon Dioxide 31.0 Anion Gap 7 BUN 60 H Creatinine 5.21 H Estim Creat Clear Calc 11.48 Est GFR (MDRD) Af Amer 14 L Est GFR (MDRD) Non-Af 12 L BUN/Creatinine Ratio 11.5 Glucose 101 Calcium 8.8 Total Bilirubin 1.50 H AST 25 ALT 24 Alkaline Phosphatase 169 H Total Protein 6.0 L Albumin 2.5 L Globulin 3.5 Albumin/Globulin Ratio 0.7 L Blood Type Antibody Screen 08/08/22 15:13 WBC RBC Hgb Hct MCV MCH MCHC RDW Std Deviation RDW Coeff of Eleni Plt Count MPV Immature Gran % (Auto) Neut % (Auto) Lymph % (Auto) [place] % (Auto) Eos % (Auto) Baso % (Auto) Absolute Neuts (auto) Absolute Lymphs (auto) Nucleated RBC % Platelet Estimate RBC Morphology Anisocytosis Macrocytosis PT INR APTT Sodium Potassium Chloride Carbon Dioxide Anion Gap BUN Creatinine Estim Creat Clear Calc Est GFR (MDRD) Af Amer Est GFR (MDRD) Non-Af BUN/Creatinine Ratio Glucose Calcium Total Bilirubin AST ALT Alkaline Phosphatase Total Protein Albumin Globulin Albumin/Globulin Ratio Blood Type A NEGATIVE Antibody Screen NEGATIVE Discharge Plan Triage Chief Complaint: GI Bleed Other Complaint: Cough ED Provider: Manfred Orosco Dx/Rx/DC Orders Prescriptions: No Action carvedilol [Coreg] 25 mg tablet 12.5 mg PO BID Rx Instructions: hold if sbp <120mmhg Venofer 100 mg iron/5 mL solution 100 mg IV MOWEFR Rx Instructions: during dialysis albuterol sulfate 0.63 mg/3 mL solution for nebulization 0.63 mg inhalation Q6H PRN (Reason: SOB) ipratropium-albuterol 3 ML solution for nebulization 1 inh INHALATION Q4H PRN PRN (Reason: Sob &/Or Wheezing) rosuvastatin 40 MG tablet 40 mg PO QHS sucralfate 1 GM tablet 1 g PO BID cholecalciferol (vitamin D3) 50 MCG capsule 1,000 unit PO DAILY pantoprazole 40 MG tablet 40 mg PO BID budesonide 0.5 mg/2 mL suspension for nebulization 0.5 mg inhalation BID Retacrit 20,000 unit/mL Solution 20,000 unit SUBCUT MOWEFR Primary Care Provider: Tania Berger NP Referrals: Tania Berger NP, COMPENSATION CONSULTING MANAGER-C [Primary Care Provider] -
[2022-08-08 15:00] LABS: Absolute Neutrophil Count 7.2 X10^3/uL (2.0-7.7); Basophil# 0.02 X10^3/uL; Basophil% 0.2 % (0-1); Eosinophil# 0.06 X10^3/uL; Eosinophils% 0.7 % (0-5); Hematocrit 28.7 % (40-54); Lymphocyte % 10.4 % (19-41); Mean Corp Hgb Conc 27.9 g/dL (32-36); Mean Corpuscular Hgb 32.7 pg (27.0-32.0); Mean Corpuscular Volume 117.1 fL (80-94); Mean Platelet Vol. 11.3 fl (6.2-12.0); Monocyte# 0.42 X10^3/uL; Monocyte% 4.8 % (0-10); NRBC Flagged by Analyzer 0 % (0-5); Neutrophil % 83.1 % (47-70); POSITIVE MORPHOLOGY YES; Platelet Count 146 K/mm3 (150-450); RBC Distribution Width CV 25.9 % (11.6-14.6); Red Blood Count 2.45 M/mm3 (4.6-6.2); White Blood Count 8.7 K/mm3 (4.4-11.0)
[2022-08-08] MEDS: Lidocaine/Epi/Tetracaine 50 ML 1 APPLIC TOPICAL (15:26)
[2022-08-08] MEDS: Ipratropium/Albuterol Sulfate 3 ML AMPUL.NEB INHALATION ×3 (15:32→23:20)
[2022-08-08 15:33] LABS: International Normalized Ratio 1.3
[2022-08-08 15:34] LABS: Partial Thromboplast Time 38.5 Seconds (24.1-36.2)
[2022-08-08 15:45] LABS: Differential Indicated SCAN CRITERIA MET; RBC Distribution Width SD 109.7 fl (35.1-43.9)
[2022-08-08 15:47] LABS: Anisocytosis 2+; Macrocytosis 2+; Platelet Estimate ADEQUATE (ADEQ); Red Cell Morphology N CHROM NORMAL (NORM C&C)
[2022-08-08 15:49] LABS: ALB/GLOB Ratio 0.7 RATIO (0.9-2.4); AST(SGOT) 25 U/L (15-37); Alanine Aminotransfer ALT/SGPT 24 U/L (16-61); Albumin, Serum 2.5 g/dL (3.2-5.0); Alkaline Phosphatase 169 U/L (45-117); Anion Gap 7 (5-15); BUN 60 mg/dL (7-18); BUN/Creat Ratio 11.5 RATIO (10-20); Calcium,Total 8.8 mg/dL (8.5-10.1); Chloride 102 mmol/L (98-107); Creatinine, Serum 5.21 mg/dL (0.70-1.30); EST Glomerular Filtration Rate 12 mL/min (>60); Est Glom Filt Rate - Afr Amer 14 mL/min (>60); Estimated Creatinine Clearance 11.48 ml/min; Globulin 3.5 g/dL (2.2-4.2); Glucose 101 mg/dL (74-106); Potassium 4.9 mmol/L (3.5-5.1); Sodium Level 140 mmol/L (136-145)
--- NOTE | 2022-08-08 17:41 | NURSING ---
SURGERY [facility] ORAL HEMORRHAGE
--- NOTE | 2022-08-08 17:44 | PCM.CONS.GEN ---
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 bleeding source along anterior floor of mouth / mandible, unable to directly visualize due to pain. -will proceed to OR for operative cauterization/suturing HPI Consult Data Date of Consult: 08/08/22 HPI Narrative Reason for Consultation: oral cavity bleeding HPI Narrative: ANGELINA FORREST, is a 71 M who presents with oral cavity bleeding. roughly one month ago, he completed radiation / chemo for a large floor of mouth squamous carcinoma. he was sleeping today when suddenly his mouth started bleeding. he has a significant medical history of CAD, CHF, pulmonary hypertension, COPD, ESRD on dialysis. Hb 8 which is reportedly his baseline. [facility] Medical History Alcohol use Anemia Anxiety Atherosclerotic heart disease of [place] coronary artery without angina pectoris Back pain BiPAP (biphasic positive airway pressure) dependence BPH (benign prostatic hyperplasia) Cancer Cardiology follow-up encounter Chest pain COPD (chronic obstructive pulmonary disease) Depression Dialysis patient Diastolic CHF Dietary restriction Difficulty chewing Difficulty swallowing ESRD (end stage renal disease) Gastric reflux GI bleed GI bleed History of CHF (congestive heart failure) History of echocardiogram History of edema History of hiatal hernia History of non-ST elevation myocardial infarction (NSTEMI) (01/21/11) History of pain when walking History of stress test HLD (hyperlipidemia) HTN (hypertension) Hx of pleural effusion Loss of hearing Non-smoker On home oxygen therapy Open wound PAD (peripheral artery disease) PAF (paroxysmal atrial fibrillation) Poor dental hygiene PVD (peripheral vascular disease) Shortness of breath on exertion TIA (transient ischemic attack) Tobacco dependence Walker as ambulation aid Wears glasses Home Medications ipratropium 0.5 mg-albuterol 3 mg (2.5 mg base)/3 mL nebulization soln 1 inh inhalation Q4H PRN PRN Sob &/Or Wheezing 07/23/19 [History Last Taken 05/04/21] rosuvastatin 40 mg tablet 40 mg PO QHS cholesterol 07/23/19 [History Last Taken 05/03/21] cholecalciferol (vitamin D3) 50 mcg (2,000 unit) capsule 1,000 unit PO DAILY SUPPLEMENT 10/01/20 [History Last Taken 05/03/21] sucralfate 1 gram tablet 1 g PO BID STOMACH 10/01/20 [History Last Taken 05/04/21] carvedilol 25 mg tablet (Coreg) 12.5 mg PO BID BP 10/29/20 [History Last Taken 05/28/22] pantoprazole 40 mg tablet,delayed release 40 mg PO BID stomach 10/30/20 [History Last Taken 05/28/22] budesonide 0.5 mg/2 mL suspension for nebulization 0.5 mg inhalation BID SOB 05/04/21 [History Last Taken 05/04/21] epoetin last-epbx 20,000 unit/mL injection solution (Retacrit) 20,000 unit subcut MOWEFR 05/04/21 [History Last Taken 05/04/21] iron sucrose 100 mg iron/5 mL intravenous solution (Venofer) 100 mg IV MOWEFR 05/13/22 [History Last Taken Unknown] albuterol sulfate 0.63 mg/3 mL solution for nebulization 0.63 mg inhalation Q6H PRN SOB 05/17/22 [History Last Taken Unknown] Allergy/AdvReac Type Severity Reaction Status Date / Time irbesartan [From Avapro] Allergy Severe Blisters Verified 08/08/22 13:59 pregabalin [From Lyrica] Allergy seizure-like Verified 08/08/22 13:59 activity zolpidem [From Ambien] AdvReac Severe made me Verified 08/08/22 13:59 go crazy, memory loss amoxicillin AdvReac Intermediate PASSES Verified 08/08/22 13:59 BLOOD IN STOOL gabapentin AdvReac Unknown emotional Verified 08/08/22 13:59 metronidazole [From Flagyl] AdvReac pt states Verified 08/08/22 13:59 he got palpitations and nose bleed. Family History Father CAD (coronary artery disease) Hypertension Kidney disease CVA (cerebral vascular accident) Other Cancer Surgical History History of cardiac catheterization History of esophagogastroduodenoscopy (EGD) History of partial colectomy history of surgically created arteriovenous fistula Hx of bilateral cataract extraction S/P CABG x 3 (01/26/11) s/p fistulogram (~09/28/18) Status post peripheral artery angioplasty with insertion of stent (~2010) Stented coronary artery Social History household members: spouse Smoking Status: Current some day smoker tobacco type: cigarettes alcohol intake: current alcohol intake frequency: 3 or more drinks per day substance use type: does not use Physical Exam Const alert General Appearance: cooperative Orientation / Consciousness: awake HEENT Throat: posterior oropharynx normal and other Other Details: tongue tethered to floor of mouth s/p radiation. bleeding source along anterior floor of mouth / mandible, unable to directly visualize due to pain. Lymph Lymphatic: no lymphadenopathy noted Resp Effort and Inspection: able to speak in complete sentences Lab / Micro Data Result Diagrams: 08/08/22 14:45 08/08/22 15:13 Labs: Laboratory Results - last 24 hr 08/08/22 14:45: WBC 8.7, RBC 2.45 L, Hgb 8.0 L, Hct 28.7 L, MCV 117.1 H, MCH 32.7 H, MCHC 27.9 L, RDW Std Deviation 109.7 H, RDW Coeff of Eleni 25.9 H, Plt Count 146 L, MPV 11.3, Immature Gran % (Auto) 0.800, Neut % (Auto) 83.1 H, Lymph % (Auto) 10.4 L, [place] % (Auto) 4.8, Eos % (Auto) 0.7, Baso % (Auto) 0.2, Absolute Neuts (auto) 7.2, Absolute Lymphs (auto) 0.90, Nucleated RBC % 0, Platelet Estimate ADEQUATE, RBC Morphology N CHROM, Anisocytosis 2+, Macrocytosis 2+ 08/08/22 15:13: PT 16.0 H, INR 1.3, APTT 38.5 H 08/08/22 15:13: Sodium 140, Potassium 4.9, Chloride 102, Carbon Dioxide 31.0, Anion Gap 7, BUN 60 H, Creatinine 5.21 H, Estim Creat Clear Calc 11.48, Est GFR (MDRD) Af Amer 14 L, Est GFR (MDRD) Non-Af 12 L, BUN/Creatinine Ratio 11.5, Glucose 101, Calcium 8.8, Total Bilirubin 1.50 H, AST 25, ALT 24, Alkaline Phosphatase 169 H, Total Protein 6.0 L, Albumin 2.5 L, Globulin 3.5, Albumin/Globulin Ratio 0.7 L 08/08/22 15:13: Blood Type A NEGATIVE, Antibody Screen NEGATIVE 08/08/22 15:13: Crossmatch See Detail
--- NOTE | 2022-08-08 17:50 | ED.RN ---
MD ordered ativan, family did not want given d/t dialysis and unable to wake up patient in past.
--- NOTE | 2022-08-08 18:05 | PCM.OPRPT ---
Problems Associated Problem List Diagnoses (1) Bleeding from mouth: Report of Operation Date of Procedure: 08/08/22 Pre-Operative Diagnosis: oral cavity hemorrhage Post-Operative Diagnosis: oral cavity hemorrhage Surgery/Procedure Performed:: operative control of oral cavity hemorrhage Surgeon: Ashok Vinson Type of Anesthesia: General Description of Procedure: on the day of the procedure, after appropriate informed consent was obtained, he was brought to the operating room and placed in supine position on the operating table. he was placed under general endotracheal anesthesia by the anesthesiologist. the endotracheal tube was secured, the eyes were taped. his face was prepped and draped in sterile fashion. the floor of mouth was examined, and bleeding was seen from an ulcerated area of the floor of mouth where his primary carcinoma was. there was no significant bleeding, just oozing from the central part of the ulcer. suction cautery was used to achieve hemostasis. a valsalva maneuver was held and hemostasis was observed. surgicel was placed in the defect. he was awoken from anesthesia and transferred to the PACU in stable condition.
--- NOTE | 2022-08-08 18:28 | ED.RN ---
report given to Ren in OR. LAND LEASING INFORMATION CLERK Beth taking pt to surgery with family.
--- NOTE | 2022-08-08 18:34 | ED.RN ---
notified OR that blood bank called that blood products are ready
[2022-08-08] MEDS: 0.9% Normal Saline 1,000 ML 15 ML IV (19:00)
--- NOTE | 2022-08-08 20:15 | SUR.PHASEI ---
FAMILY CAME BACK TO PACU AND STOOD AT THE END OF THE PATIENT'S BED. PATIENT WAS STILL IN PAIN. HOWEVER I WAS TOLD BY ULISES ANRDADE THAT THE FAMILY TOLD HER WHEN SHE WENT OUT TO GET THEM THAT THEY DID NOT WANT THE PATIENT TO HAVE ANY MORE FENT[place]L. I WAS MONITORING THE PATIENT'S BP AT THE TIME SO I WAS HOLDING MORE DOSES BECAUSE IT WAS LOWERING HIS SYSTOLLIC BLOOD PRESSURE. WHENEVER THE PATIENT SAID HE WAS IN PAIN, THEY WOULD TELL HIM SHE ALREADY GAVE YOU SOME. RAYMOND MONTGOMERY WILL DOCUMENT HER CONVERSATION WITH THE FAMILY. HIS SYSTOLLIC BP DID COME UP TO 20% OF HIS PREOP BP. HIS COLOSTOMY BAG WAS CHANGED BY ULISES ANDRADE. REPORT GIVEN TO PCU PRIOR TO SENDING THE PATIENT TO THE FLOOR.
--- NOTE | 2022-08-08 20:29 | PCM.HP.STD ---
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 On the same day of presentation. Patient was taking to the emergency department and had the floor of his mouth cauterized. He reports chronic difficulty breathing and a chronic cough. Patient was seen by hospitalist when he had returned from the OR and he complained of increased pain in his mouth above his baseline. [facility] Medical History Alcohol use Anemia Anxiety Atherosclerotic heart disease of [place] coronary artery without angina pectoris Back pain BiPAP (biphasic positive airway pressure) dependence BPH (benign prostatic hyperplasia) Cancer Cardiology follow-up encounter Chest pain COPD (chronic obstructive pulmonary disease) Depression Dialysis patient Diastolic CHF Dietary restriction Difficulty chewing Difficulty swallowing ESRD (end stage renal disease) Gastric reflux GI bleed GI bleed History of CHF (congestive heart failure) History of echocardiogram History of edema History of hiatal hernia History of non-ST elevation myocardial infarction (NSTEMI) (01/21/11) History of pain when walking History of stress test HLD (hyperlipidemia) HTN (hypertension) Hx of pleural effusion Loss of hearing Non-smoker On home oxygen therapy Open wound PAD (peripheral artery disease) PAF (paroxysmal atrial fibrillation) Poor dental hygiene PVD (peripheral vascular disease) Shortness of breath on exertion TIA (transient ischemic attack) Tobacco dependence Walker as ambulation aid Wears glasses Home Medications ipratropium 0.5 mg-albuterol 3 mg (2.5 mg base)/3 mL nebulization soln 1 inh inhalation Q4H PRN PRN Sob &/Or Wheezing 07/23/19 [History Last Taken 05/04/21] rosuvastatin 40 mg tablet 40 mg PO QHS cholesterol 07/23/19 [History Last Taken 05/03/21] cholecalciferol (vitamin D3) 50 mcg (2,000 unit) capsule 1,000 unit PO DAILY SUPPLEMENT 10/01/20 [History Last Taken 05/03/21] sucralfate 1 gram tablet 1 g PO BID STOMACH 10/01/20 [History Last Taken 05/04/21] carvedilol 25 mg tablet (Coreg) 12.5 mg PO BID BP 10/29/20 [History Last Taken 05/28/22] pantoprazole 40 mg tablet,delayed release 40 mg PO BID stomach 10/30/20 [History Last Taken 05/28/22] budesonide 0.5 mg/2 mL suspension for nebulization 0.5 mg inhalation BID SOB 05/04/21 [History Last Taken 05/04/21] epoetin last-epbx 20,000 unit/mL injection solution (Retacrit) 20,000 unit subcut MOWEFR 05/04/21 [History Last Taken 05/04/21] iron sucrose 100 mg iron/5 mL intravenous solution (Venofer) 100 mg IV MOWEFR 05/13/22 [History Last Taken Unknown] albuterol sulfate 0.63 mg/3 mL solution for nebulization 0.63 mg inhalation Q6H PRN SOB 05/17/22 [History Last Taken Unknown] Allergy/AdvReac Type Severity Reaction Status Date / Time irbesartan [From Avapro] Allergy Severe Blisters Verified 08/08/22 13:59 Opioids - Morphine Analogues Allergy Other Verified 08/08/22 17:50 pregabalin [From Lyrica] Allergy seizure-like Verified 08/08/22 13:59 activity zolpidem [From Ambien] AdvReac Severe made me Verified 08/08/22 13:59 go crazy, memory loss amoxicillin AdvReac Intermediate PASSES Verified 08/08/22 13:59 BLOOD IN STOOL gabapentin AdvReac Unknown emotional Verified 08/08/22 13:59 metronidazole [From Flagyl] AdvReac pt states Verified 08/08/22 13:59 he got palpitations and nose bleed. Family History Father CAD (coronary artery disease) Hypertension Kidney disease CVA (cerebral vascular accident) Other Cancer Surgical History History of cardiac catheterization History of esophagogastroduodenoscopy (EGD) History of partial colectomy history of surgically created arteriovenous fistula Hx of bilateral cataract extraction S/P CABG x 3 (01/26/11) s/p fistulogram (~09/28/18) Status post peripheral artery angioplasty with insertion of stent (~2010) Stented coronary artery Social History household members: spouse Smoking Status: Current some day smoker tobacco type: cigarettes alcohol intake: current alcohol intake frequency: 3 or more drinks per day substance use type: does not use ROS ROS Narrative Pertinent positives and pertinent negatives as noted in HPI. All other systems were reviewed and are negative Vital Signs Vital Signs Vital Signs: 08/08/22 14:00 08/08/22 15:32 08/08/22 15:53 Temperature 97.3 F L Temperature Source Temporal Pulse Rate 85 87 87 Respiratory Rate 18 22 H 24 H Respiratory Pattern Tachypnea Blood Pressure 165/71 H 147/51 H Blood Pressure Mean 102 83 Blood Pressure Source Blood Pressure Position Blood Pressure Location Baseline BP Pulse Ox 100 100 Oxygen Delivery Method Nasal Cannula Nasal Cannula Oxygen Flow Rate (L/min) 4 4 08/08/22 17:44 08/08/22 18:32 08/08/22 19:24 Temperature 98.6 F 98.6 F 98.9 F Temperature Source Temporal Temporal Temporal Pulse Rate 82 82 101 H Respiratory Rate 24 H 24 H 20 H Respiratory Pattern Normal Blood Pressure 145/49 H 145/49 H 143/58 H Blood Pressure Mean 81 81 86 Blood Pressure Source Monitor Monitor Blood Pressure Position Semi-Fowlers Semi-Fowlers Blood Pressure Location Right Arm Right Arm Baseline BP 145/49 Pulse Ox 100 100 94 Oxygen Delivery Method Nasal Cannula Nasal Cannula Nasal Cannula Oxygen Flow Rate (L/min) 4 4 4 08/08/22 19:30 08/08/22 19:45 08/08/22 20:00 Temperature 98.9 F Temperature Source Temporal Pulse Rate 90 89 88 Respiratory Rate 18 18 20 H Respiratory Pattern Blood Pressure 141/88 H 97/18 L 128/67 H Blood Pressure Mean 105 44 87 Blood Pressure Source Monitor Monitor Monitor Blood Pressure Position Semi-Fowlers Semi-Fowlers Semi-Fowlers Blood Pressure Location Right Arm Right Arm Left Arm Baseline BP 145/49 145/49 145/49 Pulse Ox 95 97 98 Oxygen Delivery Method Venturi Mask Room Air Room Air Oxygen Flow Rate (L/min) 4 08/08/22 20:20 08/08/22 20:23 Temperature Temperature Source Pulse Rate 89 Respiratory Rate 18 Respiratory Pattern Normal Blood Pressure Blood Pressure Mean Blood Pressure Source Blood Pressure Position Blood Pressure Location Baseline BP Pulse Ox 93 Oxygen Delivery Method Nasal Cannula Oxygen Flow Rate (L/min) 2 Weight Weight: 62.3 kg Body Mass Index (BMI) 22.8 Physical Exam Narrative Physical exam: General: Frail elderly male sickly looking. Head: Normocephalic, atraumatic, no tenderness Eyes: Vision is grossly intact. EOMI ENT: Devitalized tissue at the roof of the mouth. Poor dentition. Neck: Nontender, full range of motion, no spinal tenderness, deformities, step-off CVS: Regular rate and rhythm. S1-S2 present. No murmur, gallop or rub. Respiratory: Bibasilar Rales chest wall nontender, no wheezing Abdomen: Soft, nontender, nondistended, normal bowel sounds, no masses : Deferred Back: Nontender, no CVA tenderness, no midline spinal tenderness, deformities, step-offs Extremities: Nontender full range of motion, no trauma Skin: Normal color, no trauma, abrasions Neuro: Alert, oriented, cranial nerves II through XII grossly intact. Psychiatry: Anxious. Restless Results Lab / Micro Data Result Diagrams: 08/08/22 14:45 08/08/22 15:13 Labs: Laboratory Results - last 24 hr 08/08/22 14:45: WBC 8.7, RBC 2.45 L, Hgb 8.0 L, Hct 28.7 L, MCV 117.1 H, MCH 32.7 H, MCHC 27.9 L, RDW Std Deviation 109.7 H, RDW Coeff of Eleni 25.9 H, Plt Count 146 L, MPV 11.3, Immature Gran % (Auto) 0.800, Neut % (Auto) 83.1 H, Lymph % (Auto) 10.4 L, Duchesne % (Auto) 4.8, Eos % (Auto) 0.7, Baso % (Auto) 0.2, Absolute Neuts (auto) 7.2, Absolute Lymphs (auto) 0.90, Nucleated RBC % 0, Platelet Estimate ADEQUATE, RBC Morphology N CHROM, Anisocytosis 2+, Macrocytosis 2+ 08/08/22 15:13: PT 16.0 H, INR 1.3, APTT 38.5 H 08/08/22 15:13: Sodium 140, Potassium 4.9, Chloride 102, Carbon Dioxide 31.0, Anion Gap 7, BUN 60 H, Creatinine 5.21 H, Estim Creat Clear Calc 11.48, Est GFR (MDRD) Af Amer 14 L, Est GFR (MDRD) Non-Af 12 L, BUN/Creatinine Ratio 11.5, Glucose 101, Calcium 8.8, Total Bilirubin 1.50 H, AST 25, ALT 24, Alkaline Phosphatase 169 H, Total Protein 6.0 L, Albumin 2.5 L, Globulin 3.5, Albumin/Globulin Ratio 0.7 L 08/08/22 15:13: Blood Type A NEGATIVE, Antibody Screen NEGATIVE 08/08/22 15:13: Crossmatch See Detail Assessment & Plan Assessment/Plan (1) Bleeding from mouth: (2) History of cancer of floor of mouth: (3) End-stage kidney disease: PLAN: Plan Bleeding from mouth in the setting of history of counseled floor of mouth Status post cauterization of ulcerated area of floor of the mouth where bleeding was; postop day 0. Trend H&H. Chronic microcytic anemia On presentation him his hemoglobin was 8.0 and that was around baseline. We will trend H&H End-stage renal disease on dialysis Patient has dialysis at his home on Tuesday via [facility]. Anticipate patient may be discharged on 08/09/2022 and he will go home and do dialysis. No nephrology consult at this time. If patient is unable to be discharged on 08/09/2022 consider nephrology consult for dialysis. Chronic respiratory failure with hypoxia and hypercapnia With home oxygen of 3 L O2 sat was 100. Patient requesting [id number] DuoNeb's at home; ordered. Tobacco abuse Counseled History of diastolic heart failure Echocardiogram on 11/15/2019 showed EF of 55% with evidence of diastolic dysfunction. No hemodynamically significant valvular disease found. Stable DVT prophylaxis SCDs ordered. Charges/Coding Visit Charges OBSV E&M: 64487 Initial observation care L1
--- NOTE | 2022-08-08 20:56 | SUR.PHASEI ---
AT APPROXIMATELY 1950 I WENT TO THE SURGERY WAITING ROOM TO UPDATE THE AND TWO DAUGHTERS. I INFORMED THEM THAT WE HAD GIVEN THE PATIENT FENTANYL 25 MCG IV X 2 DOSES FOR POST SURGERY PAIN IN HIS TONGUE. THE AND DAUGHTERS VERBALIZED THAT WE SHOULD NOT HAVE GIVEN THE PATIENT IV NARCOTICS FOR PAIN. WHEN ASKED WHAT THE PATIENT TOOK PAIN AT HOME, THE STATED CBD OIL OR TYLENOL. THE DAUGHTER STATED THE PATIENT BEGS FOR PAIN MEDICATION EVEN WHEN HE IS NOT IN PAIN. FAMILY MEMBERS ESCORTED BACK TO PACU TO SEE PATIENT.
[2022-08-08] MEDS: fentaNYL 100 MCG/2 ML Ampul 25 MCG IV (21:28)
[2022-08-08 22:40] LABS: Hematocrit 19.7 % (40-54); POSITIVE COUNT YES
[2022-08-09] VITALS (20 sets, daily range): BP systolic 121–155; BP diastolic 41–59; PULSE 76–98; RESP 12–22; TEMP 36.6–37.1; O2SAT 94–100
[2022-08-09] MEDS: Ipratropium/Albuterol Sulfate 3 ML AMPUL.NEB INHALATION ×2 (05:48→11:21)
[2022-08-09 07:19] LABS: Hematocrit 28.1 % (40-54)
[2022-08-09 07:26] LABS: Anion Gap 9 (5-15); BUN 77 mg/dL (7-18); BUN/Creat Ratio 13.5 RATIO (10-20); Calcium,Total 8.6 mg/dL (8.5-10.1); Chloride 103 mmol/L (98-107); Creatinine, Serum 5.71 mg/dL (0.70-1.30); EST Glomerular Filtration Rate 11 mL/min (>60); Est Glom Filt Rate - Afr Amer 13 mL/min (>60); Estimated Creatinine Clearance 10.44 ml/min; Glucose 88 mg/dL (74-106); Potassium 5.1 mmol/L (3.5-5.1); Sodium Level 137 mmol/L (136-145)
--- NOTE | 2022-08-09 08:37 | PN_ITS ---
Subjective Subjective feels well Objective Data Objective Data no bleeding overnight. Vital Signs: Vital Signs Temp Pulse Resp BP Pulse Ox O2 Del Method O2 Flow Rate 97.9 F 98 21 H 132/57 H 100 Nasal Cannula 3 08/09/22 06:13 08/09/22 07:04 08/09/22 07:04 08/09/22 06:13 08/09/22 07:04 08/09/22 06:13 08/09/22 06:13 FiO2 28 08/09/22 07:04 Oxygen Flow Rate (L/min) 3 Oxygen Delivery Method Nasal Cannula Weight: 61.3 kg Body Mass Index (BMI) 22.1 Intake & Output: Intake and Output for Last 24 Hours 08/07/22 08/08/22 08/09/22 23:59 23:59 23:59 Intake Total 176.5 / 296.5 1010 / 1010 Balance 176.5 / 296.5 1010 / 1010 Lab / Micro Data Result Diagrams: 08/09/22 06:18 08/09/22 06:06 Labs: Laboratory Results - last 24 hr 08/08/22 14:45: WBC 8.7, RBC 2.45 L, Hgb 8.0 L, Hct 28.7 L, MCV 117.1 H, MCH 32.7 H, MCHC 27.9 L, RDW Std Deviation 109.7 H, RDW Coeff of Eleni 25.9 H, Plt Count 146 L, MPV 11.3, Immature Gran % (Auto) 0.800, Neut % (Auto) 83.1 H, Lymph % (Auto) 10.4 L, Toole % (Auto) 4.8, Eos % (Auto) 0.7, Baso % (Auto) 0.2, Absolute Neuts (auto) 7.2, Absolute Lymphs (auto) 0.90, Nucleated RBC % 0, Plate let Estimate ADEQUATE, RBC Morphology N CHROM, Anisocytosis 2+, Macrocytosis 2+ 08/08/22 15:13: PT 16.0 H, INR 1.3, APTT 38.5 H 08/08/22 15:13: Sodium 140, Potassium 4.9, Chloride 102, Carbon Dioxide 31.0, An ion Gap 7, BUN 60 H, Creatinine 5.21 H, Estim Creat Clear Calc 11.48, Est GFR (MDRD) Af Amer 14 L, Est GFR (MDRD) Non-Af 12 L, BUN/Creatinine Ratio 11.5, Glucose 101, Calcium 8.8, Total Bilirubin 1.50 H, AST 25, ALT 24, Alkaline Phosphatase 169 H, Total Protein 6.0 L, Albumin 2.5 L, Globulin 3.5, Albumi n/Globulin Ratio 0.7 L 08/08/22 15:13: Blood Type A NEGATIVE, Antibody Screen NEGATIVE 08/08/22 15:13: Crossmatch See Detail 08/08/22 21:00: Hgb 5.7 L*, Hct 19.7 L 08/09/22 06:06: Sodium 137, Potassium 5.1, Chloride 103, Carbon Dioxide 25.0, Anion Gap 9, BUN 77 H, Creatinine 5.71 H, Estim Creat Clear Calc 10.44, Est GFR (MDRD) Af Amer 13 L, Est GFR (MDRD) Non-Af 11 L, BUN/Creatinine Ratio 13.5, Glucose 88, Calcium 8.6 08/09/22 06:18: Hgb 9.0 L, Hct 28.1 L Assessment & Plan Assessment/Plan (1) Bleeding from mouth: PLAN: Plan POD#1 s/p operative cauterization of floor of mouth radiation ulcer -no bleeding overnight -Hb up to 9 after 2 units -cleared to full diet and discharge from ENT standpoint. will defer medical discharge criteria to hospitalist. -f/u at [facility] in 1 week
[2022-08-09] MEDS: fentaNYL 100 MCG/2 ML Ampul 25 MCG IV (08:46)
[2022-08-09] MEDS: 0.9% Saline Lock 10 ML Syringe IV (08:48)
[2022-08-09] MEDS: Albuterol 2.5 MG/3 ML VIAL.NEB. INHALATION (09:21)
--- NOTE | 2022-08-09 10:27 | DS.PCM_ITS ---
Providers Date of Admission: 08/08/22 Date of Discharge: 08/09/22 Primary Care Physician: SEUN Poe Consultations 08/08/22 20:55 Consult: Oral Surgeon Routine Consulting Provider: Ashok Vinson Reason for Consult: bleeding from mouth EMERGENT Consult: No MD Notified: Yes Date Notified: 08/08/22 Time Notified: 20:24 Method of Notification: ED Physician Initiated Reason For Visit: BLEEDING FROM FLOOR OF MOUTH Diagnosis Discharge Diagnosis (1) Bleeding from mouth: Status: Acute Code(s): K13.79 - Other lesions of oral mucosa Medications at Discharge Home Medications ipratropium 0.5 mg-albuterol 3 mg (2.5 mg base)/3 mL nebulization soln 1 inh inhalation Q4H PRN PRN Sob &/Or Wheezing 07/23/19 rosuvastatin 40 mg tablet 40 mg PO QHS cholesterol 07/23/19 cholecalciferol (vitamin D3) 50 mcg (2,000 unit) capsule 1,000 unit PO DAILY SUPPLEMENT 10/01/20 sucralfate 1 gram tablet 1 g PO BID STOMACH 10/01/20 carvedilol 25 mg tablet (Coreg) 12.5 mg PO BID BP 10/29/20 pantoprazole 40 mg tablet,delayed release 40 mg PO BID stomach 10/30/20 budesonide 0.5 mg/2 mL suspension for nebulization 0.5 mg inhalation BID SOB 05/04/21 epoetin last-epbx 20,000 unit/mL injection solution (Retacrit) 20,000 unit subcut MOWEFR 05/04/21 iron sucrose 100 mg iron/5 mL intravenous solution (Venofer) 100 mg IV MOWEFR 05/13/22 albuterol sulfate 0.63 mg/3 mL solution for nebulization 0.63 mg inhalation Q6H PRN SOB 05/17/22 Hospital Course Operations - (Cautery of oral cavity hemorrhage) Procedures None Summary of Care Provided Minutes Spent on Discharge: 25 Hospital Course: Mr. Gimenez is a 71-year-old white male who presented to the emergency department at [facility] on 08/08/2022 with oral cavity bleeding. The patient has a history of oropharyngeal squamous cell carcinoma and has recently completed radiation and chemo. Evidently on the day of presentation he was sleeping when his mouth started bleeding. He is not on anticoagulation at baseline. His hemoglobin at baseline is 8. He was evaluated by ENT in the emergency department and taken to the OR for cautery after which she was admitted for observation and blood transfusion as follow-up hemoglobin after this event was 5.7. He was given 2 units of packed red blood cells at which time his hemoglobin trended up to 9.0 and he had no further bleeding. He was reevaluated by ENT on the a.m. of 08/09/2022 and they felt he was stable to go home. A diet was ordered and he tolerated this well. He does do dialysis however he does this at home and will follow-up with us after discharge. He is to follow-up in the ENT clinic in a week. I have asked him to follow-up with his primary care physician within the next 2 weeks. He was discharged home in stable condition with no changes in his medications on 08/09/2022. Discharge diagnoses: Bleeding of the oropharynx Acute anemia secondary to blood loss Chronic anemia secondary to renal disease End-stage renal disease-HD dependent Hyperlipidemia GERD History of GI bleeding Diastolic CHF-compensated CAD Hypertension COPD-O2 dependent History of TIA BPH Vitamin D deficiency History of tobacco abuse Physical Exam Const alert, oriented x3, no apparent distress and well nourished Constitutional Narrative: Elderly white male sitting up in bed watching television, appears older than stated age, asking for his breakfast which was ordered an hour ago, nontoxic General Appearance: cooperative, comfortable and well developed Orientation / Consciousness: awake, oriented to person, oriented to place and oriented to time Exam Limitations: no limitations HEENT normocephalic and head/scalp atraumatic HEENT Narrative: Oropharyngeal abnormality secondary to cancer status post radiation, moderate hearing loss, dry mucous membranes Resp normal respiratory effort, no retractions and no use of accessory muscles Resp Narrative: Diffusely diminished with few scattered end expiratory wheezes Auscultation: wheezes; Negative for crackles or rhonchi Cardio regular rate, regular rhythm, S1 normal heart sound, S2 normal heart sound, no murmurs, no rub, no gallops and no clicks GI normal to inspection, nondistended, normoactive bowel sounds, soft to palpation and non-tender Extremity no clubbing, cyanosis or edema Extremity Narrative: 2+ pedal pulses Neuro oriented x3, moves all extremities and no focal motor deficits Neuro Narrative: Generalized weakness noted, speech is garbled secondary to oropharyngeal cancer but patient is able to communicate Weight / BMI Weight Weight: 61.3 kg Body Mass Index (BMI) 22.1 ABG / Lab / Microbiology Data Result Diagrams: 08/09/22 06:18 08/09/22 06:06 Laboratory: Laboratory Results - last 24 hr 08/08/22 14:45: WBC 8.7, RBC 2.45 L, Hgb 8.0 L, Hct 28.7 L, MCV 117.1 H, MCH 32.7 H, MCHC 27.9 L, RDW Std Deviation 109.7 H, RDW Coeff of Eleni 25.9 H, Plt Count 146 L, MPV 11.3, Immature Gran % (Auto) 0.800, Neut % (Auto) 83.1 H, Lymph % (Auto) 10.4 L, Atkinson % (Auto) 4.8, Eos % (Auto) 0.7, Baso % (Auto) 0.2, Absolute Neuts (auto) 7.2, Absolute Lymphs (auto) 0.90, Nucleated RBC % 0, Platelet Estimate ADEQUATE, RBC Morphology N CHROM, Anisocytosis 2+, Macrocytosis 2+ 08/08/22 15:13: PT 16.0 H, INR 1.3, APTT 38.5 H 08/08/22 15:13: Sodium 140, Potassium 4.9, Chloride 102, Carbon Dioxide 31.0, Anion Gap 7, BUN 60 H, Creatinine 5.21 H, Estim Creat Clear Calc 11.48, Est GFR (MDRD) Af Amer 14 L, Est GFR (MDRD) Non-Af 12 L, BUN/Creatinine Ratio 11.5, Glucose 101, Calcium 8.8, Total Bilirubin 1.50 H, AST 25, ALT 24, Alkaline Phosphatase 169 H, Total Protein 6.0 L, Albumin 2.5 L, Globulin 3.5, Albumin/Globulin Ratio 0.7 L 08/08/22 15:13: Blood Type A NEGATIVE, Antibody Screen NEGATIVE 08/08/22 15:13: Crossmatch See Detail 08/08/22 21:00: Hgb 5.7 L*, Hct 19.7 L 08/09/22 06:06: Sodium 137, Potassium 5.1, Chloride 103, Carbon Dioxide 25.0, Anion Gap 9, BUN 77 H, Creatinine 5.71 H, Estim Creat Clear Calc 10.44, Est GFR (MDRD) Af Amer 13 L, Est GFR (MDRD) Non-Af 11 L, BUN/Creatinine Ratio 13.5, Glucose 88, Calcium 8.6 08/09/22 06:18: Hgb 9.0 L, Hct 28.1 L D/C Instructions Discharge Diet: Low fat / Low cholesterol and Renal Diet Discharge Activity: Return to Normal Activity Meaningful Use Info Meaningful Use Diagnoses (Choose all that apply): None applicable Discharge Plan Admission Admit Date/Time: 08/08/22 20:15 Primary Reason for Your Visit: Oral bleeding Attending Provider: Ofelia Hale Primary Care Provider: Tania Berger NP Consulting Providers: Ashok Vinosn Discharge Orders/Prescriptions Prescriptions: Continued carvedilol [Coreg] 25 mg tablet 12.5 mg PO BID Rx Instructions: hold if sbp <120mmhg Venofer 100 mg iron/5 mL solution 100 mg IV MOWEFR Rx Instructions: during dialysis albuterol sulfate 0.63 mg/3 mL solution for nebulization 0.63 mg inhalation Q6H PRN (Reason: SOB) ipratropium-albuterol 3 ML solution for nebulization 1 inh INHALATION Q4H PRN PRN (Reason: Sob &/Or Wheezing) rosuvastatin 40 MG tablet 40 mg PO QHS sucralfate 1 GM tablet 1 g PO BID cholecalciferol (vitamin D3) 50 MCG capsule 1,000 unit PO DAILY pantoprazole 40 MG tablet 40 mg PO BID budesonide 0.5 mg/2 mL suspension for nebulization 0.5 mg inhalation BID Retacrit 20,000 unit/mL Solution 20,000 unit SUBCUT MOWEFR Referrals / Follow Up: Ashok Vinson MD [Med Staff - Active Staff] - In 1 Week Tania Berger NP, STUDENT EDUCATION SPECIALIST-C [Primary Care Provider] - Within 2 Weeks Disposition Disposition (needs filled in before D/C Order can be placed): Home, Self Care Charges/Coding Visit Charges OBSV E&M: 30840 Observation care discharge
--- NOTE | 2022-08-09 11:01 | CASEMGMT ---
Pt does HD at home and per Dr. Hale, plan is to d/c pt home today so that he can complete his HD at home. ENT states ok for d/c as well. Chris ANDRADE CM
--- NOTE | 2022-08-09 11:38 | CON.PCM.RE_ITS ---
Assessment & Plan Assessment/Plan (1) Chronic anemia: PLAN: Chronic history of anemia due to ESRD, previous blood loss from GI tract. Recently diagnosed with oral cancer, presented with bleeding from oral cavity. s/p PRBC (2) End-stage kidney disease: PLAN: on HHD. can do HD at home today. dc today HPI Consult Data Date of Consult: 08/09/22 HPI Narrative Reason for Consultation: ESRD HPI Narrative: ANGELINA FORREST, is a 71 M who presents to the hospital with oral bleeding. Nephrology on consultation for ESRD. ESRD on home hemodialysis. Currently does treatments 4 times a week. Recently diagnosed with oral cancer, status postrad iation treatment. S/p cauterization by ENT yesterday. Has AV fistula for access. [facility], [facility] Medical History Alcohol use Anemia Anxiety Atherosclerotic heart disease of [place] coronary artery without angina pectoris Back pain BiPAP (biphasic positive airway pressure) dependence BPH (benign prostatic hyperplasia) Cancer Cardiology follow-up encounter Chest pain COPD (chronic obstructive pulmonary disease) Depression Dialysis patient Diastolic CHF Dietary restriction Difficulty chewing Difficulty swallowing ESRD (end stage renal disease) Gastric reflux GI bleed GI bleed History of CHF (congestive heart failure) History of echocardiogram History of edema History of hiatal hernia History of non-ST elevation myocardial infarction (NSTEMI) (01/21/11) History of pain when walking History of stress test HLD (hyperlipidemia) HTN (hypertension) Hx of pleural effusion Loss of hearing Non-smoker On home oxygen therapy Open wound PAD (peripheral artery disease) PAF (paroxysmal atrial fibrillation) Poor dental hygiene PVD (peripheral vascular disease) Shortness of breath on exertion TIA (transient ischemic attack) Tobacco dependence Walker as ambulation aid Wears glasses Home Medications ipratropium 0.5 mg-albuterol 3 mg (2.5 mg base)/3 mL nebulization soln 1 inh inhalation Q4H PRN PRN Sob &/Or Wheezing 07/23/19 [History Last Taken 05/04/21] rosuvastatin 40 mg tablet 40 mg PO QHS cholesterol 07/23/19 [History Last Taken 05/03/21] cholecalciferol (vitamin D3) 50 mcg (2,000 unit) capsule 1,000 unit PO DAILY SUPPLEMENT 10/01/20 [History Last Taken 05/03/21] sucralfate 1 gram tablet 1 g PO BID STOMACH 10/01/20 [History Last Taken ] carvedilol 25 mg tablet (Coreg) 12.5 mg PO BID BP 10/29/20 [History Last Taken 05/28/22] pantoprazole 40 mg tablet,delayed release 40 mg PO BID stomach 10/30/20 [History Last Taken 05/28/22] budesonide 0.5 mg/2 mL suspension for nebulization 0.5 mg inhalation BID SOB 05/04/21 [History Last Taken 05/04/21] epoetin last-epbx 20,000 unit/mL injection solution (Retacrit) 20,000 unit subcut MOWEFR 05/04/21 [History Last Taken 05/04/21] iron sucrose 100 mg iron/5 mL intravenous solution (Venofer) 100 mg IV MOWEFR 05/13/22 [History Last Taken Unknown] albuterol sulfate 0.63 mg/3 mL solution for nebulization 0.63 mg inhalation Q6H PRN SOB 05/17/22 [History Last Taken Unknown] Allergy/AdvReac Type Severity Reaction Status Date / Time irbesartan [From Avapro] Allergy Severe Blisters Verified 08/08/22 13:59 Opioids - Morphine Analogues Allergy Other Verified 08/08/22 17:50 pregabalin [From Lyrica] Allergy seizure-like Verified 08/08/22 13:59 activity zolpidem [From Ambien] AdvReac Severe made me Verified 08/08/22 13:59 go crazy, memory loss amoxicillin AdvReac Intermediate PASSES Verified 08/08/22 13:59 BLOOD IN STOOL gabapentin AdvReac Unknown emotional Verified 08/08/22 13:59 metronidazole [From Flagyl] AdvReac pt states Verified 08/08/22 13:59 he got palpitations and nose bleed. Family History Father CAD (coronary artery disease) Hypertension Kidney disease CVA (cerebral vascular accident) Other Cancer Surgical History History of cardiac catheterization History of esophagogastroduodenoscopy (EGD) History of partial colectomy history of surgically created arteriovenous fistula Hx of bilateral cataract extraction S/P CABG x 3 (01/26/11) s/p fistulogram (~09/28/18) Status post peripheral artery angioplasty with insertion of stent (~2010) Stented coronary artery Social History household members: spouse Smoking Status: Current some day smoker tobacco type: cigarettes alcohol intake: current alcohol intake frequency: 3 or more drinks per day substance use type: does not use ROS ROS Narrative Negative except above Physical Exam Narrative Alert awake oriented x 3 no obvious distress no pallor no icterus no JVD s1s2 no murmurs lungs clear abdomen soft no organomegaly no edema Lab / Micro Data Result Diagrams: 08/09/22 06:18 08/09/22 06:06 Labs: Laboratory Results - last 24 hr 08/08/22 14:45: WBC 8.7, RBC 2.45 L, Hgb 8.0 L, Hct 28.7 L, MCV 117.1 H, MCH 32.7 H, MCHC 27.9 L, RDW Std Deviation 109.7 H, RDW Coeff of Eleni 25.9 H, Plt Count 146 L, MPV 11.3, Immature Gran % (Auto) 0.800, Neut % (Auto) 83.1 H, Lymph % (Auto) 10.4 L, [place] % (Auto) 4.8, Eos % (Auto) 0.7, Baso % (Auto) 0.2, Absolute Neuts (auto) 7.2, Absolute Lymphs (auto) 0.90, Nucleated RBC % 0, Platelet Estimate ADEQUATE, RBC Morphology N CHROM, Anisocytosis 2+, Macrocytosis 2+ 08/08/22 15:13: PT 16.0 H, INR 1.3, APTT 38.5 H 08/08/22 15:13: Sodium 140, Potassium 4.9, Chloride 102, Carbon Dioxide 31.0, Anion Gap 7, BUN 60 H, Creatinine 5.21 H, Estim Creat Clear Calc 11.48, Est GFR (MDRD) Af Amer 14 L, Est GFR (MDRD) Non-Af 12 L, BUN/Creatinine Ratio 11.5, Glucose 101, Calcium 8.8, Total Bilirubin 1.50 H, AST 25, ALT 24, Alkaline Phosphatase 169 H, Total Protein 6.0 L, Albumin 2.5 L, Globulin 3.5, Albumin/Globulin Ratio 0.7 L 08/08/22 15:13: Blood Type A NEGATIVE, Antibody Screen NEGATIVE 08/08/22 15:13: Crossmatch See Detail 08/08/22 21:00: Hgb 5.7 L*, Hct 19.7 L 08/09/22 06:06: Sodium 137, Potassium 5.1, Chloride 103, Carbon Dioxide 25.0, Anion Gap 9, BUN 77 H, Creatinine 5.71 H, Estim Creat Clear Calc 10.44, Est GFR (MDRD) Af Amer 13 L, Est GFR (MDRD) Non-Af 11 L, BUN/Creatinine Ratio 13.5, Glucose 88, Calcium 8.6 08/09/22 06:18: Hgb 9.0 L, Hct 28.1 L
[2022-08-09 12:17] LABS: Hemoglobin 5.7 g/dL (13.0-16.5)
== END 2022-08-09 10:30 | disposition home or self-care (01) ==
LOC: ED 17:26 → SDC 17:43 → AC 17:43 → PCU 20:32 → SDC 08-10 17:11 → PCU 08-10 17:11
PROVIDERS: Otolaryngology; Admitting Provider Hospitalist; Emergency Provider Emergency Medicine; PCP Nurse Practitioner Family; Visit Provider Internal Medicine
PROC: (CPT 42960; principal; 2022-08-08 18:30)
DX: K13.79 Other lesions of oral mucosa (principal); I13.2 Hypertensive heart and chronic kidney disease with heart failure and with stage 5 chronic kidney disease, or end stage renal disease; Z93.2 Ileostomy status; Z99.2 Dependence on renal dialysis; J44.9 Chronic obstructive pulmonary disease, unspecified; I50.32 Chronic diastolic (congestive) heart failure; C04.9 Malignant neoplasm of floor of mouth, unspecified; N18.6 End stage renal disease; I73.9 Peripheral vascular disease, unspecified; I48.0 Paroxysmal atrial fibrillation; D62 Acute posthemorrhagic anemia; E78.5 Hyperlipidemia, unspecified; I25.10 Atherosclerotic heart disease of native coronary artery without angina pectoris; N40.0 Benign prostatic hyperplasia without lower urinary tract symptoms; K21.9 Gastro-esophageal reflux disease without esophagitis; Z92.3 Personal history of irradiation; Z79.51 Long term (current) use of inhaled steroids; E55.9 Vitamin D deficiency, unspecified; F17.210 Nicotine dependence, cigarettes, uncomplicated; Z92.21 Personal history of antineoplastic chemotherapy; D63.1 Anemia in chronic kidney disease; Z95.1 Presence of aortocoronary bypass graft; I25.2 Old myocardial infarction; Z99.81 Dependence on supplemental oxygen; Z79.899 Other long term (current) drug therapy
CPT/HCPCS: 42960; 00170; 36415; 36430; 80048; 80053; 85014; 85018; 85025; 85610; 85730; 86850; 86900; 86901; 86920; 94002; 94003; 94640; 94762; 96365; 96366; 96375; 96376; 99218; 99251; 99285; J7030; J7040; P9016; A4216; G0378; G0463; J2405; Q5106

== ENCOUNTER 2022-08-23 20:27 | Emergency (ER) | payer MEDICARE, SELFPAY ==
[2022-08-23] VITALS (7 sets, daily range): BP systolic 96–131; BP diastolic 36–57; PULSE 90–102; RESP 16–24; TEMP 36.7–36.8; O2SAT 96–100
[2022-08-23 21:11] LABS: Absolute Lymphocyte Count 1.09 X10^3/uL (0.83-4.51); Absolute Neutrophil Count 8.2 X10^3/uL (2.0-7.7); Basophil# 0.01 X10^3/uL; Basophil% 0.1 % (0-1); Eosinophil# 0.03 X10^3/uL; Eosinophils% 0.3 % (0-5); Hematocrit 25.2 % (40-54); Hemoglobin 7.7 g/dL (13.0-16.5); Lymphocyte # 1.09 X10^3/ul (0.83-4.51); Lymphocyte % 11.2 % (19-41); Mean Corp Hgb Conc 30.6 g/dL (32-36); Mean Corpuscular Hgb 32.4 pg (27.0-32.0); Mean Corpuscular Volume 105.9 fL (80-94); Mean Platelet Vol. 10.7 fl (6.2-12.0); Monocyte# 0.38 X10^3/uL; Monocyte% 3.9 % (0-10); NRBC Flagged by Analyzer 0.2 % (0-5); Neutrophil # 8.16 X10^3/uL (2.7-7.7); Neutrophil % 83.9 % (47-70); POSITIVE MORPHOLOGY YES; Platelet Count 175 K/mm3 (150-450); RBC Distribution Width CV 28.1 % (11.6-14.6); Red Blood Count 2.38 M/mm3 (4.6-6.2); White Blood Count 9.7 K/mm3 (4.4-11.0)
--- NOTE | 2022-08-23 21:14 | EX.ED.DYSGE1 ---
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 He is presenting today for bleeding which is coming from underneath the tongue which is matted and adhered to the lower portion of the mouth. Patient is not on any anticoagulation. Patient states that he was here on the and had multiple treatments to try to stop the bleeding in the emergency room. He was taken to the OR by Dr. Fulton and ultimately the bleeding was able to be controlled. Patient did receive 2 units because he was anemic. He states he did not have any significant bleeding since then until . He notes he is able to control this fairly quickly. Patient has had 3 hours of bleeding from under the tongue today. [facility] Medical History Alcohol use Anemia Anxiety Atherosclerotic heart disease of [place] coronary artery without angina pectoris Back pain BiPAP (biphasic positive airway pressure) dependence BPH (benign prostatic hyperplasia) Cancer Cardiology follow-up encounter Chest pain Chronic anemia COPD (chronic obstructive pulmonary disease) Depression Dialysis patient Diastolic CHF Dietary restriction Difficulty chewing Difficulty swallowing End-stage kidney disease ESRD (end stage renal disease) Gastric reflux GI bleed GI bleed History of cancer of floor of mouth History of CHF (congestive heart failure) History of echocardiogram History of edema History of hiatal hernia History of non-ST elevation myocardial infarction (NSTEMI) (01/21/11) History of pain when walking History of stress test HLD (hyperlipidemia) HTN (hypertension) Hx of pleural effusion Loss of hearing Non-smoker On home oxygen therapy Open wound PAD (peripheral artery disease) PAF (paroxysmal atrial fibrillation) Poor dental hygiene PVD (peripheral vascular disease) Shortness of breath on exertion TIA (transient ischemic attack) Tobacco dependence Walker as ambulation aid Wears glasses Home Medications ipratropium 0.5 mg-albuterol 3 mg (2.5 mg base)/3 mL nebulization soln 1 inh inhalation Q4H PRN PRN Sob &/Or Wheezing 07/23/19 [History Last Taken 05/04/21] rosuvastatin 40 mg tablet 40 mg PO QHS cholesterol 07/23/19 [History Last Taken 05/03/21] cholecalciferol (vitamin D3) 50 mcg (2,000 unit) capsule 1,000 unit PO DAILY SUPPLEMENT 10/01/20 [History Last Taken 05/03/21] sucralfate 1 gram tablet 1 g PO BID STOMACH 10/01/20 [History Last Taken 05/04/21] carvedilol 25 mg tablet (Coreg) 12.5 mg PO BID PRN for dialysis 10/29/20 [History Last Taken 05/28/22] pantoprazole 40 mg tablet,delayed release 40 mg PO BID stomach 10/30/20 [History Last Taken 05/28/22] budesonide 0.5 mg/2 mL suspension for nebulization 0.5 mg inhalation BID SOB 05/04/21 [History Last Taken 05/04/21] epoetin last-epbx 20,000 unit/mL injection solution (Retacrit) 20,000 unit subcut MOWEFR for blood count 05/04/21 [History Last Taken 08/23/22 13:00] iron sucrose 100 mg iron/5 mL intravenous solution (Venofer) 100 mg IV MOWEFR PRN low hgb 05/13/22 [History Last Taken Unknown] albuterol sulfate 0.63 mg/3 mL solution for nebulization 0.63 mg inhalation Q6H PRN SOB 05/17/22 [History Last Taken Unknown] medical marajuana 08/23/22 [History Last Taken Unknown] vitamin B complex-vitamin C-folic acid 0.8 mg tablet (Nephro-Concha) 1 tab PO DAILY 08/23/22 [History Last Taken Unknown] Allergy/AdvReac Type Severity Reaction Status Date / Time irbesartan [From Avapro] Allergy Severe Blisters Verified 08/23/22 20:31 Opioids - Morphine Analogues Allergy Other Verified 08/23/22 20:31 pregabalin [From Lyrica] Allergy seizure-like Verified 08/23/22 20:31 activity zolpidem [From Ambien] AdvReac Severe made me Verified 08/23/22 20:31 go crazy, memory loss amoxicillin AdvReac Intermediate PASSES Verified 08/23/22 20:31 BLOOD IN STOOL gabapentin AdvReac Unknown emotional Verified 08/23/22 20:31 metronidazole [From Flagyl] AdvReac pt states Verified 08/23/22 20:31 he got palpitations and nose bleed. Family History Father CAD (coronary artery disease) Hypertension Kidney disease CVA (cerebral vascular accident) Other Cancer Surgical History History of cardiac catheterization History of esophagogastroduodenoscopy (EGD) History of partial colectomy history of surgically created arteriovenous fistula Hx of bilateral cataract extraction S/P CABG x 3 (01/26/11) s/p fistulogram (~09/28/18) Status post peripheral artery angioplasty with insertion of stent (~2010) Stented coronary artery Social History household members: spouse Smoking Status: Former smoker alcohol intake: current alcohol intake frequency: 3 or more drinks per day substance use type: does not use ROS ROS ED Constitutional Constitutional ED: Denies chills or fever(s) Eyes Eyes: Denies change in vision or diplopia ENT ENT ED: Reports other Details: Bleeding from under the tongue ; Denies rhinorrhea Cardiovascular Cardiovascular: Denies chest pain or palpitations Respiratory/Chest Respiratory/Chest: Denies cough or dyspnea Gastrointestinal Gastrointestinal: Denies abdominal pain or constipation Genitourinary Genitourinary ED: Denies dysuria or hematuria Musculoskeletal Musculoskeletal: Denies arthralgias Integumentary Denies abscess Neurologic Neurologic: Denies headache(s) EXAM Physical Exam Const Vital Signs: 08/23/22 20:27 08/23/22 20:42 Temperature 98.0 F Temperature Source Temporal Pulse Rate 93 Respiratory Rate 16 Respiratory Pattern Normal Blood Pressure 131/45 H Blood Pressure Mean 73 Pulse Ox 96 Oxygen Delivery Method Room Air Positive well nourished General Appearance ED: NAD; Negative for pallor HEENT HEENT Narrative: Macerated tissue in the floor of the mouth with weeping blood filling the lower aspect of the mouth. There is no identifiable source. There is no pulsatile bleeding. Patient currently protecting his airway. Eyes PERRL and EOMs intact bilaterally Chest Wall inspection of chest normal Resp normal respiratory effort Cardio regular rate and regular rhythm GI normal to inspection, nondistended, normoactive bowel sounds Neuro oriented x3 and CN's II-XII intact bilaterally Sensorium / Orientation: alert Skin no rashes or lesions noted General Skin Exam: Negative for elasticity normal, jaundice or pallor MDM MDM MDM Narrative Medical decision making narrative: I did immediately discussed the case with Dr. Fulton he recommended placing Kerlix under the tongue and applying pressure. He states that he did not do much in the OR last time he had him here. He states that he tried scraping his tongue and using suction and packing it with Kerlix and was able to get the bleeding under control. He was able to get the patient home. He did require transfusion. Dr. Fulton states that he needs something more definitive than he can offer him here at [facility]. Blood work will be obtained. Patient typed and screened. We tried packing Kerlix under his tongue. I spoke to the transfer line at [facility]. They are currently reaching out to ENT. Patient CBC shows no leukocytosis with a white blood cell count 9.7. Hemoglobin 7.7 and near baseline. Patient with normal vital signs. He still continues to ooze from under his tongue. Patient continues to have weeping from under the tongue. Let gel was applied and this has not been successful. He is continuously suction to keep his airway clean. He requested a breathing treatment was given. Patient's hemoglobin is 7.7 however with a continual bleeding is felt a pop of the suction canister with blood. Crossmatched for 1 unit. I spoke with [facility] again and Dr. Sue in the ED accepted ER to ER transfer for evaluation. Currently is about 30 minutes until EMS arrives. Patient will be monitored until transfer. Impression: 1. History of adenocarcinoma of the tongue 2. Tongue ulceration with bleeding Lab Data Labs: Laboratory Results - last 24 hr 08/23/22 08/23/22 20:57 20:57 WBC 9.7 RBC 2.38 L Hgb 7.7 L Hct 25.2 L MCV 105.9 H MCH 32.4 H MCHC 30.6 L RDW Std Deviation 103.6 H RDW Coeff of Eleni 28.1 H Plt Count 175 MPV 10.7 Immature Gran % (Auto) 0.600 Neut % (Auto) 83.9 H Lymph % (Auto) 11.2 L [place] % (Auto) 3.9 Eos % (Auto) 0.3 Baso % (Auto) 0.1 Absolute Neuts (auto) 8.2 H Absolute Lymphs (auto) 1.09 Nucleated RBC % 0.2 Polychromasia 1+ Anisocytosis 3+ Microcytosis 1+ Macrocytosis 2+ Blood Type A NEGATIVE Antibody Screen NEGATIVE Discharge Plan Triage Chief Complaint: Other, Pain/Inj ED Provider: Santino Phillips Dx/Rx/DC Orders Prescriptions: No Action carvedilol [Coreg] 25 mg tablet 12.5 mg PO BID PRN (Reason: for dialysis) Rx Instructions: hold if sbp <120mmhg Venofer 100 mg iron/5 mL solution 100 mg IV MOWEFR PRN (Reason: low hgb) Rx Instructions: during dialysis albuterol sulfate 0.63 mg/3 mL solution for nebulization 0.63 mg inhalation Q6H PRN (Reason: SOB) ipratropium-albuterol 3 ML solution for nebulization 1 inh INHALATION Q4H PRN PRN (Reason: Sob &/Or Wheezing) rosuvastatin 40 MG tablet 40 mg PO QHS sucralfate 1 GM tablet 1 g PO BID cholecalciferol (vitamin D3) 50 MCG capsule 1,000 unit PO DAILY pantoprazole 40 MG tablet 40 mg PO BID budesonide 0.5 mg/2 mL suspension for nebulization 0.5 mg inhalation BID Retacrit 20,000 unit/mL Solution 20,000 unit SUBCUT MOWEFR Nephro-Concha 0.8 mg tablet 1 tab PO DAILY Label Comments: TAKE 1 TABLET BY MOUTH EVERY DAY alessia rios Primary Care Provider: Tania Berger NP Referrals: Tania Berger TELEVISION SCRIPT WRITER, TELEVISION SCRIPT WRITER-C [Primary Care Provider] -
[2022-08-23 21:15] LABS: RBC Distribution Width SD 103.6 fl (35.1-43.9)
[2022-08-23 21:18] LABS: Differential Indicated SCAN CRITERIA MET
[2022-08-23 21:43] LABS: Anisocytosis 3+; Macrocytosis 2+; Microcytosis 1+; Polychromasia 1+
[2022-08-23] MEDS: Ipratropium/Albuterol Sulfate 3 ML AMPUL.NEB INHALATION (21:52)
[2022-08-23] MEDS: Lidocaine/Epi/Tetracaine 50 ML 1 APPLIC TOPICAL (22:12)
[2022-08-23 22:20] LABS: Anion Gap 7 (5-15); BUN 49 mg/dL (7-18); BUN/Creat Ratio 11.1 RATIO (10-20); Chloride 97 mmol/L (98-107); Creatinine, Serum 4.41 mg/dL (0.70-1.30); EST Glomerular Filtration Rate 14 mL/min (>60); Est Glom Filt Rate - Afr Amer 17 mL/min (>60); Estimated Creatinine Clearance 0.01 ml/min; Glucose 103 mg/dL (74-106); Potassium 4.7 mmol/L (3.5-5.1); Sodium Level 134 mmol/L (136-145)
[2022-08-24 13:38] LABS: Pathologist Review Reviewed
== END 2022-08-23 23:16 | disposition short-term general hospital (02) ==
LOC: ED 20:56
PROVIDERS: Emergency Provider Student in an Organized Health Care Education/Training Program; PCP Nurse Practitioner Family; Visit Provider Student in an Organized Health Care Education/Training Program
DX: K12.30 Oral mucositis (ulcerative), unspecified (principal); I13.2 Hypertensive heart and chronic kidney disease with heart failure and with stage 5 chronic kidney disease, or end stage renal disease; J44.9 Chronic obstructive pulmonary disease, unspecified; I50.30 Unspecified diastolic (congestive) heart failure; N18.6 End stage renal disease; I25.10 Atherosclerotic heart disease of native coronary artery without angina pectoris; D64.9 Anemia, unspecified; E78.5 Hyperlipidemia, unspecified; Z87.891 Personal history of nicotine dependence; Z85.810 Personal history of malignant neoplasm of tongue
CPT/HCPCS: 80048; 85025; 86850; 86900; 86901; 86920; 99284; J7030; P9016; A4216

== ENCOUNTER 2022-08-28 18:22 | Emergency (ER) | payer MEDICARE, SELFPAY ==
[2022-08-28] VITALS (8 sets, daily range): BP systolic 83–119; BP diastolic 40–48; PULSE 58–79; RESP 20–30; TEMP 35.9–36.3; O2SAT 95–100; BMI 21.3
[2022-08-28 18:51] LABS: Absolute Lymphocyte Count 1.05 X10^3/uL (0.83-4.51); Absolute Neutrophil Count 5.7 X10^3/uL (2.0-7.7); Basophil# 0.02 X10^3/uL; Basophil% 0.3 % (0-1); Eosinophil# 0.12 X10^3/uL; Eosinophils% 1.7 % (0-5); Hematocrit 28.7 % (40-54); Hemoglobin 8.5 g/dL (13.0-16.5); Lymphocyte # 1.05 X10^3/ul (0.83-4.51); Lymphocyte % 14.5 % (19-41); Mean Corp Hgb Conc 29.6 g/dL (32-36); Mean Corpuscular Hgb 31.4 pg (27.0-32.0); Mean Corpuscular Volume 105.9 fL (80-94); Mean Platelet Vol. 10.8 fl (6.2-12.0); Monocyte# 0.29 X10^3/uL; NRBC Flagged by Analyzer 0 % (0-5); Neutrophil # 5.71 X10^3/uL (2.7-7.7); Neutrophil % 78.9 % (47-70); POSITIVE MORPHOLOGY YES; Platelet Count 152 K/mm3 (150-450); RBC Distribution Width CV 25.6 % (11.6-14.6); RBC Distribution Width SD 93.6 fl (35.1-43.9); Red Blood Count 2.71 M/mm3 (4.6-6.2); White Blood Count 7.2 K/mm3 (4.4-11.0)
[2022-08-28 18:52] LABS: Differential Indicated SCAN CRITERIA MET
[2022-08-28 19:00] LABS: International Normalized Ratio 1.1; Prothrombin Time (Protime)PT. 14.1 SECONDS (11.7-14.9)
[2022-08-28 19:01] LABS: Partial Thromboplast Time 37.2 Seconds (24.1-36.2)
[2022-08-28] MEDS: 0.9% Normal Saline 1,000 ML 1000 ML IV ×2 (19:06→19:41)
[2022-08-28 19:08] LABS: ALB/GLOB Ratio 0.7 RATIO (0.9-2.4); AST(SGOT) 19 U/L (15-37); Alanine Aminotransfer ALT/SGPT 14 U/L (16-61); Albumin, Serum 2.3 g/dL (3.2-5.0); Alkaline Phosphatase 180 U/L (45-117); Anion Gap 9 (5-15); BUN 55 mg/dL (7-18); BUN/Creat Ratio 9.8 RATIO (10-20); Calcium,Total 8.1 mg/dL (8.5-10.1); Chloride 101 mmol/L (98-107); Creatinine, Serum 5.64 mg/dL (0.70-1.30); EST Glomerular Filtration Rate 11 mL/min (>60); Est Glom Filt Rate - Afr Amer 13 mL/min (>60); Globulin 3.3 g/dL (2.2-4.2); Glucose 123 mg/dL (74-106); Potassium 4.1 mmol/L (3.5-5.1); Protein, Total 5.6 g/dL (6.4-8.2); Sodium Level 137 mmol/L (136-145)
--- NOTE | 2022-08-28 19:14 | ED.RN ---
daughter in triage on phone speaking with someone, i'm about to fake chest pain so i can get back there and go in dad's room.
--- NOTE | 2022-08-28 19:16 | ED.RN ---
daughter in waiting room speaking on the phone stated they arent doing anything, they are just letting him lay there, this is why i didnt want to come here.
--- NOTE | 2022-08-28 19:23 | ED.RN ---
pt family on phone in waiting room talking to family in the room. states just keep hitting call light to be a pain in the butt till they transfer him.
[2022-08-28 19:24] LABS: Anisocytosis 1+; Macrocytosis 1+; Platelet Estimate ADEQUATE (ADEQ); Red Cell Morphology N CHROM NORMAL (NORM C&C)
--- NOTE | 2022-08-28 19:40 | ED.RN ---
pt daughter on the phone. make sure you take pictures of everything in that room and keep calling for the nurse to come in
[2022-08-28] MEDS: Gelfoam 12-7 MM Sponge (1) 1 EACH TOPICAL (20:08)
--- NOTE | 2022-08-28 20:12 | EX.ED.DYSGE1 ---
HPI History of Present Illness Chief Complaint: Other, Pain/Inj Informant: patient and spouse/S.O. Onset/Context/Timing Onset: Today Context: Sudden Onset Timing: Continuous Quality: Bleeding Location: Floor of the mouth Worsened by: Nothing Relieved by: Nothing Narrative Narrative: Patient presents with bleeding from his tongue that began tonight. 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 Patient was seen here for this twice in the past. Patient states he was admitted to the hospital here for persistent bleeding from his tongue. Patient went to the operating room and was treated by Dr. Vinson. He was able to get the bleeding stopped in the operating room. Patient went home after this. Patient came back again a few days later. Patient was transferred to [facility] at that time. Patient's states that they were unable to do anything for him down there. She states that he was discharged from their and instructed to follow-up with his oncologist here. Patient started having some more bleeding again tonight. Patient is not on any anticoagulants. Patient is a dialysis patient. 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 Back pain BiPAP (biphasic positive airway pressure) dependence BPH (benign prostatic hyperplasia) Cancer Cardiology follow-up encounter Chest pain Chronic anemia COPD (chronic obstructive pulmonary disease) Depression Dialysis patient Diastolic CHF Dietary restriction Difficulty chewing Difficulty swallowing End-stage kidney disease ESRD (end stage renal disease) Gastric reflux GI bleed GI bleed History of cancer of floor of mouth History of CHF (congestive heart failure) History of echocardiogram History of edema History of hiatal hernia History of non-ST elevation myocardial infarction (NSTEMI) (01/21/11) History of pain when walking History of stress test HLD (hyperlipidemia) HTN (hypertension) Hx of pleural effusion Loss of hearing Non-smoker On home oxygen therapy Open wound PAD (peripheral artery disease) PAF (paroxysmal atrial fibrillation) Poor dental hygiene PVD (peripheral vascular disease) Shortness of breath on exertion TIA (transient ischemic attack) Tobacco dependence Walker as ambulation aid Wears glasses Home Medications ipratropium 0.5 mg-albuterol 3 mg (2.5 mg base)/3 mL nebulization soln 1 inh inhalation Q4H PRN PRN Sob &/Or Wheezing 07/23/19 [History Last Taken 05/04/21] rosuvastatin 40 mg tablet 40 mg PO QHS cholesterol 07/23/19 [History Last Taken 05/03/21] cholecalciferol (vitamin D3) 50 mcg (2,000 unit) capsule 1,000 unit PO DAILY SUPPLEMENT 10/01/20 [History Last Taken 05/03/21] sucralfate 1 gram tablet 1 g PO BID STOMACH 10/01/20 [History Last Taken 05/04/21] carvedilol 25 mg tablet (Coreg) 12.5 mg PO BID PRN for dialysis 10/29/20 [History Last Taken 05/28/22] pantoprazole 40 mg tablet,delayed release 40 mg PO BID stomach 10/30/20 [History Last Taken 05/28/22] budesonide 0.5 mg/2 mL suspension for nebulization 0.5 mg inhalation BID SOB 05/04/21 [History Last Taken 05/04/21] epoetin last-epbx 20,000 unit/mL injection solution (Retacrit) 20,000 unit subcut MOWEFR for blood count 05/04/21 [History Last Taken 08/23/22 13:00] iron sucrose 100 mg iron/5 mL intravenous solution (Venofer) 100 mg IV MOWEFR PRN low hgb 05/13/22 [History Last Taken Unknown] albuterol sulfate 0.63 mg/3 mL solution for nebulization 0.63 mg inhalation Q6H PRN SOB 05/17/22 [History Last Taken Unknown] medical marajuana 08/23/22 [History Last Taken Unknown] vitamin B complex-vitamin C-folic acid 0.8 mg tablet (Nephro-Concha) 1 tab PO DAILY 08/23/22 [History Last Taken Unknown] Allergy/AdvReac Type Severity Reaction Status Date / Time irbesartan [From Avapro] Allergy Severe Blisters Verified 08/23/22 20:31 Opioids - Morphine Analogues Allergy Other Verified 08/23/22 20:31 pregabalin [From Lyrica] Allergy seizure-like Verified 08/23/22 20:31 activity zolpidem [From Ambien] AdvReac Severe made me Verified 08/23/22 20:31 go crazy, memory loss amoxicillin AdvReac Intermediate PASSES Verified 08/23/22 20:31 BLOOD IN STOOL gabapentin AdvReac Unknown emotional Verified 08/23/22 20:31 metronidazole [From Flagyl] AdvReac pt states Verified 08/23/22 20:31 he got palpitations and nose bleed. Family History Father CAD (coronary artery disease) Hypertension Kidney disease CVA (cerebral vascular accident) Other Cancer Surgical History History of cardiac catheterization History of esophagogastroduodenoscopy (EGD) History of partial colectomy history of surgically created arteriovenous fistula Hx of bilateral cataract extraction S/P CABG x 3 (01/26/11) s/p fistulogram (~09/28/18) Status post peripheral artery angioplasty with insertion of stent (~2010) Stented coronary artery Social History household members: spouse Smoking Status: Former smoker alcohol intake: current alcohol intake frequency: 3 or more drinks per day substance use type: does not use ROS ROS ED Constitutional Constitutional ED: Denies chills or fever(s) Eyes Eyes: Denies blurry vision or change in vision ENT ENT ED: Denies rhinorrhea or sore throat Cardiovascular Cardiovascular: Denies chest pain or palpitations Respiratory/Chest Respiratory/Chest: Denies cough or dyspnea Gastrointestinal Gastrointestinal: Denies nausea or vomiting Genitourinary Genitourinary ED: Denies dysuria or hematuria Musculoskeletal Musculoskeletal: Denies back pain or neck pain Integumentary Denies abscess or rash Neurologic Neurologic: Denies headache(s) or weakness Allergic/Immunologic Allergic/Immunologic ED: Denies mouth swelling or urticaria EXAM Physical Exam Const Vital Signs: 08/28/22 18:24 08/28/22 18:23 08/28/22 18:31 Temperature 97.3 F L Temperature Source Temporal Pulse Rate 79 73 Respiratory Rate 23 H 21 H Respiratory Pattern Normal Blood Pressure 110/40 L Blood Pressure Mean 63 Blood Pressure Source Blood Pressure Position Blood Pressure Location Pulse Ox 95 95 Oxygen Delivery Method Nasal Cannula Nasal Cannula Oxygen Flow Rate (L/min) 4 4 08/28/22 20:04 08/28/22 20:52 08/28/22 21:00 Temperature Temperature Source Pulse Rate 73 63 75 Respiratory Rate 20 H 26 H 30 H Respiratory Pattern Blood Pressure 101/44 L 119/42 L Blood Pressure Mean 63 67 Blood Pressure Source Blood Pressure Position Blood Pressure Location Pulse Ox 100 97 Oxygen Delivery Method Nasal Cannula Nasal Cannula Oxygen Flow Rate (L/min) 4 6 08/28/22 21:57 08/28/22 22:12 Temperature 96.7 F L 96.7 F L Temperature Source Temporal Temporal Pulse Rate 58 L 62 Respiratory Rate 26 H 27 H Respiratory Pattern Blood Pressure 91/44 L 83/41 L Blood Pressure Mean 59 55 Blood Pressure Source Monitor Monitor Blood Pressure Position Semi-Fowlers Semi-Fowlers Blood Pressure Location Left Arm Right Arm Pulse Ox 100 100 Oxygen Delivery Method Nasal Cannula Nasal Cannula Oxygen Flow Rate (L/min) 5 4 Positive well nourished and well developed General Appearance ED: well developed and NAD Neck supple and no JVD Resp normal respiratory effort and clear to auscultation bilaterally Cardio regular rate and regular rhythm Neuro CN's II-XII intact bilaterally and no sensory deficits noted Sensorium / Orientation: alert Motor Exam: strength 5/5 throughout Psych mental status grossly normal MDM MDM MDM Narrative Medical decision making narrative: CBC shows a hemoglobin of 8.5 and hematocrit 28.7. PT was INR and PTT were within normal limits. Comprehensive metabolic profile shows a BUN of 55 and creatinine 5.64. These are consistent with prior results. Patient was given IV fluids. Patient was given TXA. Blood type is A-. Bleeding seemed to slow down. Gelfoam was applied to the base of the tongue. A roll of Kerlix was also applied on top of this. Patient started having more bleeding. LET gel was applied to the area. More Gelfoam was applied. This appeared to slow down. Patient was given a DuoNeb aerosol. Portable chest x-ray was obtained. There is 1 view. On my interpretation, there is no acute cardiopulmonary process. Radiologist also interpreted the x-rays and agrees. Repeat CBC was obtained and hemoglobin went to 4.4. Type and crossmatch was drawn for 2 units. Patient was transfused 2 units of blood. Family requested to go to [facility]. Case was discussed with the transfer center there. They contacted the cementer machine applicator, Dr. Brown. Case was discussed with him. He recommended repeating the H&H after the 2 units of blood. He wanted the hemoglobin to be above 6 before the patient is transferred. Case was discussed with the critical care transport team. They will be contacted after the second unit of blood was transfused for critical care transfer. Patient and family understand and are agreeable with the plan. All questions were answered. Lab Data Attestation: I reviewed the patient's lab results. Labs: Laboratory Results - last 24 hr 08/28/22 08/28/22 08/28/22 18:35 18:35 18:35 WBC 7.2 RBC 2.71 L Hgb 8.5 L Hct 28.7 L MCV 105.9 H MCH 31.4 MCHC 29.6 L RDW Std Deviation 93.6 H RDW Coeff of Eleni 25.6 H Plt Count 152 MPV 10.8 Immature Gran % (Auto) 0.600 Neut % (Auto) 78.9 H Lymph % (Auto) 14.5 L Upton % (Auto) 4.0 Eos % (Auto) 1.7 Baso % (Auto) 0.3 Absolute Neuts (auto) 5.7 Absolute Lymphs (auto) 1.05 Nucleated RBC % 0 Differential Comment SEE COMMENT Diff Path Review Platelet Estimate ADEQUATE RBC Morphology N CHROM Hypochromasia Anisocytosis 1+ Macrocytosis 1+ PT 14.1 INR 1.1 APTT 37.2 H Sodium 137 Potassium 4.1 Chloride 101 Carbon Dioxide 27.0 Anion Gap 9 BUN 55 H Creatinine 5.64 H Estim Creat Clear Calc 10.00 Est GFR (MDRD) Af Amer 13 L Est GFR (MDRD) Non-Af 11 L BUN/Creatinine Ratio 9.8 L Glucose 123 H Calcium 8.1 L Total Bilirubin 0.70 AST 19 ALT 14 L Alkaline Phosphatase 180 H Total Protein 5.6 L Albumin 2.3 L Globulin 3.3 Albumin/Globulin Ratio 0.7 L Blood Type Antibody Screen Crossmatch 08/28/22 08/28/22 08/28/22 18:35 18:35 21:13 WBC 10.2 RBC 1.41 L Hgb 4.4 L* Hct 15.1 L MCV 107.1 H MCH 31.2 MCHC 29.1 L RDW Std Deviation 92.2 H RDW Coeff of Eleni 25.2 H Plt Count 140 L MPV 11.1 Immature Gran % (Auto) 1.000 H Neut % (Auto) 76.9 H Lymph % (Auto) 15.6 L Upton % (Auto) 4.8 Eos % (Auto) 1.5 Baso % (Auto) 0.2 Absolute Neuts (auto) 7.9 H Absolute Lymphs (auto) 1.60 Nucleated RBC % 0.5 Differential Comment Diff Path Review May foll Platelet Estimate SLT DEC RBC Morphology N CHROM Hypochromasia 1+ Anisocytosis 1+ Macrocytosis 1+ PT INR APTT Sodium Potassium Chloride Carbon Dioxide Anion Gap BUN Creatinine Estim Creat Clear Calc Est GFR (MDRD) Af Amer Est GFR (MDRD) Non-Af BUN/Creatinine Ratio Glucose Calcium Total Bilirubin AST ALT Alkaline Phosphatase Total Protein Albumin Globulin Albumin/Globulin Ratio Blood Type A NEGATIVE Antibody Screen NEGATIVE Crossmatch See Detail Radiography Chest X-Ray - ED: 1 View, Read by ED Physician, Read by Radiologist and No Acute Disease Diagnostic Testing: Clinical Impression(s) from Imaging Studies Chest X-Ray 08/28/22 20:50 IMPRESSION: Improved bilateral pleural effusions with bibasilar atelectasis. Electronically Signed: Trevor Jimenez MD at 21:06 EST , Critical Care Time Critical Care Time: Yes Critical care time (excluding procedures): 30-74 minutes (44), Including time spent:, Discussing w/Patient &/or Family/Keymodule Assembly Machine Tender, Discussing w/Consultants, Arranging Admission or Transfer and Performing Direct Patient Care at Bedside Discharge Plan Triage Chief Complaint: Other, Pain/Inj ED Provider: Chris Lopez Dx/Rx/DC Orders Clinical Impression: ABLA (acute blood loss anemia), ESRD (end stage renal disease) on dialysis, Floor of mouth squamous cell carcinoma Prescriptions: No Action carvedilol [Coreg] 25 mg tablet 12.5 mg PO BID PRN (Reason: for dialysis) Rx Instructions: hold if sbp <120mmhg Venofer 100 mg iron/5 mL solution 100 mg IV MOWEFR PRN (Reason: low hgb) Rx Instructions: during dialysis, per kidney center albuterol sulfate 0.63 mg/3 mL solution for nebulization 0.63 mg inhalation Q6H PRN (Reason: SOB) ipratropium-albuterol 3 ML solution for nebulization 1 inh INHALATION Q4H PRN PRN (Reason: Sob &/Or Wheezing) rosuvastatin 40 MG tablet 40 mg PO QHS sucralfate 1 GM tablet 1 g PO BID cholecalciferol (vitamin D3) 50 MCG capsule 1,000 unit PO DAILY pantoprazole 40 MG tablet 40 mg PO BID budesonide 0.5 mg/2 mL suspension for nebulization 0.5 mg inhalation BID Retacrit 20,000 unit/mL Solution 20,000 unit SUBCUT MOWEFR Nephro-Concha 0.8 mg tablet 1 tab PO DAILY Label Comments: TAKE 1 TABLET BY MOUTH EVERY DAY alessia rios Primary Care Provider: Tania Berger NP Referrals: Tania Berger NP, BANK VAULT ATTENDANT-C [Primary Care Provider] - Disposition Disposition: Acute Care Hospital Discharge Location: [facility]
[2022-08-28] MEDS: Ipratropium/Albuterol Sulfate 3 ML AMPUL.NEB INHALATION (20:46)
--- NOTE | 2022-08-28 20:50 | RAD_ITS ---
STUDY: X-RAY CHEST REASON FOR EXAM: Male, 71 years old. Cough TECHNIQUE: Single AP portable view of the chest. COMPARISON: 03/14/2021 FINDINGS: Status post median sternotomy. The lungs are clear and expanded. Small bilateral pleural effusions with bibasilar atelectasis, improved when compared with the prior study. There is moderate cardiac enlargement. Normal mediastinum and justyn. There is prominence of the pulmonary hilar arteries and peripheral pulmonary arteries, consistent with congestive heart failure (CHF). Normal visualized aortic arch and descending thoracic aorta. Normal visualized thoracic spine. Normal visualized ribs, clavicles, and shoulders. There is no demonstrated abnormality of the visualized soft tissue structures of the upper abdomen. RAD/Chest 1 View (Portable) IMPRESSION: Improved bilateral pleural effusions with bibasilar atelectasis. Electronically Signed: Trevor Jimenez MD at 21:06 EST ,
--- NOTE | 2022-08-28 20:53 | ED.RN ---
daughter in waiting room is on the phone with family member in the room telling them youre going to have to start getting loud.
--- NOTE | 2022-08-28 20:55 | ED.RN ---
daughter in waiting room telling family member on the phone that she has been 'taking pictures.
[2022-08-28] MEDS: Lidocaine/Epi/Tetracaine 50 ML 1 APPLIC TOPICAL (21:00)
--- NOTE | 2022-08-28 21:12 | ED.RN ---
family want to file compliant against the [facility]. asked for antonio. this rn called smokehouse worker, they refused to talk to her when she came down. one daughter told other daughter to keep taking pictures and videoing.
[2022-08-28 21:16] LABS: Absolute Neutrophil Count 7.9 X10^3/uL (2.0-7.7); Basophil# 0.02 X10^3/uL; Basophil% 0.2 % (0-1); Eosinophil# 0.15 X10^3/uL; Eosinophils% 1.5 % (0-5); Hematocrit 15.1 % (40-54); Lymphocyte % 15.6 % (19-41); Mean Corp Hgb Conc 29.1 g/dL (32-36); Mean Corpuscular Hgb 31.2 pg (27.0-32.0); Mean Corpuscular Volume 107.1 fL (80-94); Mean Platelet Vol. 11.1 fl (6.2-12.0); Monocyte# 0.49 X10^3/uL; Monocyte% 4.8 % (0-10); NRBC Flagged by Analyzer 0.5 % (0-5); Neutrophil # 7.87 X10^3/uL (2.7-7.7); Neutrophil % 76.9 % (47-70); POSITIVE COUNT YES; POSITIVE MORPHOLOGY YES; Platelet Count 140 K/mm3 (150-450); RBC Distribution Width CV 25.2 % (11.6-14.6); RBC Distribution Width SD 92.2 fl (35.1-43.9); Red Blood Count 1.41 M/mm3 (4.6-6.2); White Blood Count 10.2 K/mm3 (4.4-11.0)
--- NOTE | 2022-08-28 21:17 | ED.RN ---
daughter in triage on phone with daughter in room tell me what they are doing, switch to facetime. pt in triage on phone with pt. feelin' better dad?
[2022-08-28 21:19] LABS: Differential Indicated SCAN CRITERIA MET
--- NOTE | 2022-08-28 21:19 | ED.RN ---
daughter in triage i dont like her, that nurse hasnt done shit.
[2022-08-28 21:20] LABS: Hemoglobin 4.4 g/dL (13.0-16.5)
--- NOTE | 2022-08-28 21:20 | NURSING ---
This RN asked by ER staff to speak with patients family. Pt family requesting advocate/ombudsman number. This RN attempted to speak with family, daughter states I'm over this shit, I don't want to talk to you or anyone else. This RN gave family Antoine Conte business card.
[2022-08-28 21:56] LABS: Anisocytosis 1+; Hypochromasia 1+; Macrocytosis 1+; Platelet Estimate SLT DEC (ADEQ); Red Cell Morphology N CHROM NORMAL (NORM C&C)
--- NOTE | 2022-08-28 22:12 | NURSING ---
Report given to Critical Care transport over phone, also asked to speak with Dr Lopez, transferred to MD>
--- NOTE | 2022-08-29 00:10 | NURSING ---
Called report to [facility] ICU, report given to Renny. Transport to be here around [id number]
[2022-08-29 00:12] VITALS: BP 95/45; PULSE 69; RESP 28; TEMP 36.3; O2SAT 100
--- NOTE | 2022-08-29 00:15 | NURSING ---
This RN in room to have sign transfer consent. asked if the patient could stay here that way they could take him home Tuesday to have dialysis. This RN informed family that transfer already in place as this is what they asked for multiple times previously. expressed that in a previous experience, pt was fluid overloaded with blood and fluids and they did not do dialysis for patient. Educated family that the reason pt needs to be transferred is because we do not have ENT coverage in the event that he would start bleeding again. again expressed concerns about dialysis being completed there. This RN provided education on admission process and needs for renal patient. Daughter states 'just send him and then you can sign him out tomorrow if you need too.' agreeable to transfer.
[2022-08-29 00:19] VITALS: BP 86/46; PULSE 68; RESP 30; TEMP 36.1; O2SAT 100
[2022-08-29 00:21] VITALS: BP 86/46; PULSE 64; RESP 30; TEMP 36.1; O2SAT 100
[2022-08-29] MEDS: Ipratropium/Albuterol Sulfate 3 ML AMPUL.NEB INHALATION (00:31)
[2022-08-29 00:32] VITALS: PULSE 63; RESP 22
[2022-08-29 00:34] VITALS: BP 106/45; PULSE 64; RESP 22; TEMP 36.1; O2SAT 100
--- NOTE | 2022-08-29 00:55 | NURSING ---
transport here to [facility] patient. report given to transport crew. family present. PRBC's transfusing during transfer.
[2022-08-31 07:55] LABS: Pathologist Review Reviewed
== END 2022-08-29 00:56 | disposition short-term general hospital (02) ==
PROVIDERS: Emergency Provider Emergency Medicine; PCP Nurse Practitioner Family; Visit Provider Emergency Medicine
DX: C04.9 Malignant neoplasm of floor of mouth, unspecified (principal); I13.2 Hypertensive heart and chronic kidney disease with heart failure and with stage 5 chronic kidney disease, or end stage renal disease; Z99.2 Dependence on renal dialysis; J44.9 Chronic obstructive pulmonary disease, unspecified; I50.30 Unspecified diastolic (congestive) heart failure; N18.6 End stage renal disease; D62 Acute posthemorrhagic anemia; E78.5 Hyperlipidemia, unspecified; I25.10 Atherosclerotic heart disease of native coronary artery without angina pectoris; Z87.891 Personal history of nicotine dependence
CPT/HCPCS: 71045; 80053; 85025; 85610; 85730; 86850; 86900; 86901; 86920; 94640; 96365; 99285; J7030; J7040; P9016; A4216